=== PATIENT | female | born 1960 | race Caucasian/White ===

== ENCOUNTER 2023-03-01 10:21 | Outpatient (RCR) | payer OTHER, SELFPAY | END 2023-04-03 13:50 | disposition home or self-care (01) | LOC: PT 10:21 | PROVIDERS: PCP Student in an Organized Health Care Education/Training Program; Visit Provider Student in an Organized Health Care Education/Training Program | DX: M79.672 Pain in left foot (principal); M21.6X9 Other acquired deformities of unspecified foot | CPT/HCPCS: 97035; 97110; 97112; 97140; 97530 ==

== ENCOUNTER 2023-03-26 12:23 | Outpatient (OUT) | payer OTHER, SELFPAY ==
[2023-03-26 13:09] LABS: Thyroid Stimulating Hormone 1.279 uIU/mL (0.358-3.740)
== END 2023-03-26 12:24 | disposition home or self-care (01) ==
LOC: LAB 12:24
PROVIDERS: PCP Student in an Organized Health Care Education/Training Program; Visit Provider Internal Medicine
DX: E03.9 Hypothyroidism, unspecified (principal)
CPT/HCPCS: 36415; 84443

== ENCOUNTER 2023-05-16 08:56 | Outpatient (OUT) | payer OTHER, SELFPAY ==
--- NOTE | 2023-05-16 | XR_ITS ---
The [address] [address] Patient Name: NAVARRO SMITH MRN: [id number] date: 1960 Sex: F Assigned Patient Location: [facility] Current Patient Location: [facility] Accession/Order Number: [id number] Exam Date: 05/16/2023 09:05 Report Date: 05/16/2023 10:06 At the request of: AMY KASPER Procedure: XR foot LT min 3V PROCEDURE: XR foot LT min 3V HISTORY: LEFT FOOT PAIN ; follow-up wound COMPARISON: XR foot left 02/13/2023 FINDINGS: BONES:Mechanical fusion of the talocalcaneal and talonavicular joints. Wedge placement within the first tarsal-metatarsal joint space. Moderate degenerative changes the midfoot. No fracture or bone lesion. SOFT TISSUES:Prominent dorsal soft tissue swelling. EFFUSION:None visible. OTHER: Negative. XR/XR foot LT min 3V IMPRESSION: 1. Stable surgical changes and degenerative changes. 2. Increased dorsal soft tissue swelling. 3. Unknown site of wound. No findings to suggest osteomyelitis. Electronically authenticated by: ARIELA SCHWAB Date: 05/16/2023 10:06
== END 2023-05-16 08:57 | disposition home or self-care (01) ==
LOC: RAD 08:56
PROVIDERS: Visit Provider Podiatrist Foot & Ankle Surgery
DX: M21.42 Flat foot [pes planus] (acquired), left foot (principal)
CPT/HCPCS: 73630

== ENCOUNTER 2023-05-21 15:06 | Outpatient (RCR) | payer OTHER, SELFPAY | END 2023-06-29 17:22 | disposition home or self-care (01) | LOC: PT 15:06 | PROVIDERS: PCP Family Medicine; Visit Provider Podiatrist Foot & Ankle Surgery | DX: M76.822 Posterior tibial tendinitis, left leg (principal); M21.42 Flat foot [pes planus] (acquired), left foot | CPT/HCPCS: 97113; 97162 ==

== ENCOUNTER 2023-05-22 08:03 | Outpatient (OUT) | payer OTHER, SELFPAY ==
--- NOTE | 2023-05-22 08:43 | CT_ITS ---
The [address] [address] Patient Name: NAVARRO SMITH MRN: [id number] date: 1960 Sex: F Assigned Patient Location: CT Current Patient Location: CT Accession/Order Number: [id number] Exam Date: 05/22/2023 08:30 Report Date: 05/22/2023 10:05 At the request of: AMY KASPER Procedure: CT ankle LT wo con EXAMINATION: CT ankle LT wo con HISTORY: Posterior Tibial Tendinitis M76.822 ; postoperative swelling and pain COMPARISON: XR foot left 05/16/2023, XR ankle left 06/16/2022 TECHNIQUE: Multi-planar CT images were created without and/or with IV contrast according to examination type. Dose reduction techniques were achieved by using automated exposure control and/or adjustment of mA and/or kV according to patient size and/or use of iterative reconstruction technique. FINDINGS: BONES: Prior talocalcaneal fusion via 2 lag screws which remain intact. Fhsgc-[id number]-[id number] cuneiform fusion via single lag screw which remains intact. Prior wedge placement within the first tarsal-metatarsal joint. Marked degenerative joint disease of the midfoot. No fracture or bone lesion. Denies osteopenia. Prior bone harvesting from distal tibia. SOFT TISSUES: Subcutaneous edema versus scarring anterior to the ankle and dorsal to the proximal medial aspect of the foot. EFFUSION: None visible. OTHER: Negative. CT/CT ankle LT wo con IMPRESSION: 1. Stable surgical changes without evidence of hardware failure or change in alignment. 2. Grossly stable osteopenia and marked degenerative changes. Electronically authenticated by: ARIELA SCHWAB Date: 05/22/2023 10:05
== END 2023-05-22 08:04 | disposition home or self-care (01) ==
LOC: CT 08:04
PROVIDERS: PCP Family Medicine; Visit Provider Podiatrist Foot & Ankle Surgery
DX: M76.822 Posterior tibial tendinitis, left leg (principal)
CPT/HCPCS: 73700

== ENCOUNTER 2023-06-11 14:03 | Outpatient (OUT) | payer OTHER, SELFPAY | END 2023-06-11 14:04 | disposition home or self-care (01) | LOC: LAB 14:05 | PROVIDERS: PCP Family Medicine; Visit Provider Family Medicine | DX: E55.9 Vitamin D deficiency, unspecified (principal) | CPT/HCPCS: 36415; 82306 ==

== ENCOUNTER 2023-06-13 21:18 | Outpatient (REF) | payer OTHER, SELFPAY ==
[2023-06-20 10:09] LABS: Age Gdln ACOG Testing Note (.); HPV Aptima Negative (Negative); IGP, Aptima HPV, rfx 16/18,45 Note (.)
== END 2023-06-13 21:19 | disposition home or self-care (01) ==
LOC: LAB 21:18
PROVIDERS: PCP Family Medicine; Visit Provider Obstetrics & Gynecology
DX: Z12.4 Encounter for screening for malignant neoplasm of cervix (principal)
CPT/HCPCS: G0145

== ENCOUNTER 2023-06-27 09:06 | Outpatient (OUT) | payer OTHER, SELFPAY ==
--- NOTE | 2023-06-27 | XR_ITS ---
The [address] [address] Patient Name: NAVARRO SMITH MRN: [id number] date: 1960 Sex: F Assigned Patient Location: [facility] Current Patient Location: [facility] Accession/Order Number: [id number] Exam Date: 06/27/2023 09:15 Report Date: 06/27/2023 15:15 At the request of: AMY KASPER Procedure: XR foot BONNIE min 3V STUDY: XR foot BONNIE min 3V, [id number] HISTORY: BILATERAL FOOT PAIN COMPARISON: CT left ankle 05/22/2023 and left foot x-rays 05/16/2023. FINDINGS: Right foot: No acute fracture, dislocation, or suspicious osseous lesion. Mild osteoarthritis at the second and fourth tarsometatarsal joints. There is pes planus. Unfused calcification along the dorsal navicular. Large plantar calcaneal spur and mild Achilles insertional enthesopathy. Left foot: No acute fracture, dislocation, or suspicious osseous lesion. First tarsometatarsal joint spacer,, similar. The talocalcaneal and talonavicular fusion screws are intact and similar alignment. No evidence of loosening or infection. Pes planus. Large plantar calcaneal spur. IMPRESSION: No acute osseous abnormality. Electronically authenticated by: STERLING STARKS Date: 06/27/2023 15:15
== END 2023-06-27 09:07 | disposition home or self-care (01) ==
LOC: RAD 09:08
PROVIDERS: PCP Family Medicine; Visit Provider Podiatrist Foot & Ankle Surgery
DX: M79.672 Pain in left foot (principal); M79.671 Pain in right foot
CPT/HCPCS: 73630

== ENCOUNTER 2023-07-04 10:44 | Outpatient (OUT) | payer OTHER, SELFPAY ==
--- NOTE | 2023-07-04 | XR_ITS ---
[address] [address] Patient Name: NAVARRO SMITH MRN: [id number] date: 1960 Sex: F Assigned Patient Location: [facility] Current Patient Location: [facility] Accession/Order Number: [id number] Exam Date: 07/04/2023 09:25 Report Date: 07/04/2023 12:51 At the request of: AMY KASPER Procedure: XR foot BONNIE min 3V EXAMINATION: XR foot BONNIE min 3V HISTORY: BILATERAL FOOT PAIN COMPARISON: 06/27/2023 FINDINGS: RIGHT FINDINGS: BONES: No acute fracture or dislocation. Partial collapse of the midfoot with mild pes planus. Moderate degenerative changes with joint space narrowing and marginal osteophyte formation. Moderate plantar enthesopathic spurring of the calcaneus SOFT TISSUES: Negative. No visible soft tissue swelling. OTHER: Negative. LEFT FINDINGS: BONES: No acute fracture or dislocation. Subtalar fusion. Talonavicular fusion. Wedge spacer at the first tarsometatarsal joint. Severe degenerative changes of the midfoot and hindfoot. Moderate plantar enthesopathic spurring of the calcaneus. SOFT TISSUES: Negative. No visible soft tissue swelling. OTHER: Negative. XR/XR foot BONNIE min 3V IMPRESSION: RIGHT CONCLUSION: Stable degenerative changes and mild pes planus LEFT CONCLUSION: Stable degenerative and postsurgical changes Electronically authenticated by: SHAWNEE RAPHAEL Date: 07/04/2023 12:51
== END 2023-07-04 10:45 | disposition home or self-care (01) ==
LOC: RAD 10:44
PROVIDERS: PCP Family Medicine; Visit Provider Podiatrist Foot & Ankle Surgery
DX: L97.422 Non-pressure chronic ulcer of left heel and midfoot with fat layer exposed (principal); M79.671 Pain in right foot
CPT/HCPCS: 73630

== ENCOUNTER 2023-08-07 08:52 | Outpatient (OUT) | payer OTHER, SELFPAY ==
[2023-08-07 09:21] LABS: Hemoglobin 12.1 g/dL (12.0-16.0)
[2023-08-07 12:46] LABS: Albumin Level 3.5 g/dL (3.4-5.0)
[2023-08-07 13:22] LABS: Estimated Average Glucose 123 mg/dL; Glycohemoglobin A1C 5.9 % (4.5-6.2)
== END 2023-08-07 08:53 | disposition home or self-care (01) ==
LOC: LAB 08:52
PROVIDERS: PCP Family Medicine; Visit Provider Family Medicine
DX: Z79.899 Other long term (current) drug therapy (principal); M81.8 Other osteoporosis without current pathological fracture; M16.11 Unilateral primary osteoarthritis, right hip
CPT/HCPCS: 36415; 82042; 82306; 83036; 85018; 87081

== ENCOUNTER 2023-08-22 09:25 | Outpatient (OUT) | payer OTHER, SELFPAY ==
--- NOTE | 2023-08-22 | XR_ITS ---
The [address] [address] Patient Name: NAVARRO SMITH MRN: [id number] date: 1960 Sex: F Assigned Patient Location: [facility] Current Patient Location: Accession/Order Number: [id number] Exam Date: 08/22/2023 09:45 Report Date: 08/24/2023 08:04 At the request of: AMY KASPER Procedure: XR foot LT min 3V PROCEDURE: XR foot LT min 3V HISTORY: LEFT FOOT PAIN COMPARISON: XR foot bilateral 07/04/2023 FINDINGS: BONES:Mechanical fusion of the talocalcaneal and the medial bdfnchlvb-qseywiwod-[id number] the lag screws; no hardware fracture loosening. Wedge placement within the first tarsal-metatarsal joint. Calcaneal plantar spur. Flattening of plantar arch. SOFT TISSUES:Stable mild dorsal soft tissue swelling. EFFUSION:None visible. OTHER: Negative. XR/XR foot LT min 3V IMPRESSION: 1. Stable surgical changes without evidence of hardware failure or change in alignment. 2. Stable chronic degenerative changes. Electronically authenticated by: ARIELA SCHWAB Date: 08/24/2023 08:04
== END 2023-08-22 09:26 | disposition home or self-care (01) ==
LOC: RAD 09:25
PROVIDERS: PCP Family Medicine; Visit Provider Podiatrist Foot & Ankle Surgery
DX: M21.42 Flat foot [pes planus] (acquired), left foot (principal)
CPT/HCPCS: 73630

== ENCOUNTER 2023-09-27 12:43 | Outpatient (RCR) | payer OTHER, SELFPAY | END 2023-09-30 08:00 | disposition home or self-care (01) | LOC: PT 12:43 | PROVIDERS: PCP Family Medicine; Visit Provider Orthopaedic Surgery | DX: Z47.1 Aftercare following joint replacement surgery (principal); Z96.641 Presence of right artificial hip joint | CPT/HCPCS: 97110; 97112; 97163 ==

== ENCOUNTER 2023-10-01 08:53 | Outpatient (RCR) | payer OTHER, SELFPAY | END 2023-11-07 15:58 | disposition home or self-care (01) | LOC: PT 08:53 | PROVIDERS: PCP Family Medicine | DX: Z47.1 Aftercare following joint replacement surgery (principal); Z96.641 Presence of right artificial hip joint | CPT/HCPCS: 97110; 97112; 97113 ==

== ENCOUNTER 2023-10-31 09:37 | Outpatient (OUT) | payer OTHER, SELFPAY ==
--- NOTE | 2023-10-31 | XR_ITS ---
The [address] [address] Patient Name: NAVARRO SMITH MRN: [id number] date: 1960 Sex: F Assigned Patient Location: Current Patient Location: Accession/Order Number: [id number] Exam Date: 10/31/2023 09:39 Report Date: 10/31/2023 13:03 At the request of: AMY KASPER Procedure: XR foot LT min 3V EXAM: XR ankle LT min 3V, XR foot LT min 3V HISTORY: Left ankle pain. COMPARISON: 08/22/2023. TECHNIQUE: Routine views of the left ankle and left foot were obtained. FINDINGS: Redemonstration of the postsurgical changes in the left foot. There is evidence of arthroplasty of the first tarsometatarsal joint. Periprosthetic osteopenia measuring 3 mm is noted. The joint space at the lateral aspect remains visible. There is mechanical fusion of the talocalcaneal and the medial cuneiform navicular talus axis with 1 screw. The joint space remains visible at the posterior subtalar joint, talonavicular and the naviculocuneiform joints. There is prominent plantar calcaneal spur. There is severe osteoarthritis at the talonavicular joint with prominent dorsal spurring. Marked soft tissue swelling is seen anterior to the ankle joint as well as at the dorsal aspect of the midfoot. There is moderate osteoarthritis at the midfoot and forefoot involving the tarsometatarsal, metatarsophalangeal and the interphalangeal joints. Mild periosteal thickening is seen at the medial aspect of the second, third and fourth metatarsal bones which may be related to stress response. XR/XR foot LT min 3V IMPRESSION: Postsurgical changes as described above. No evidence of an obvious fusion at the arthrodesis site. Marked soft tissue swelling at the ankle and at the dorsal aspect of the midfoot. Polyarticular osteoarthritis. Electronically authenticated by: EMILE BERGER Date: 10/31/2023 13:03
--- NOTE | 2023-10-31 | XR_ITS ---
The [address] [address] Patient Name: NAVARRO SMITH MRN: [id number] date: 1960 Sex: F Assigned Patient Location: [facility] Current Patient Location: Accession/Order Number: [id number] Exam Date: 10/31/2023 09:48 Report Date: 10/31/2023 13:03 At the request of: AMY KASPER Procedure: XR ankle LT min 3V EXAM: XR ankle LT min 3V, XR foot LT min 3V HISTORY: Left ankle pain. COMPARISON: 08/22/2023. TECHNIQUE: Routine views of the left ankle and left foot were obtained. FINDINGS: Redemonstration of the postsurgical changes in the left foot. There is evidence of arthroplasty of the first tarsometatarsal joint. Periprosthetic osteopenia measuring 3 mm is noted. The joint space at the lateral aspect remains visible. There is mechanical fusion of the talocalcaneal and the medial cuneiform navicular talus axis with 1 screw. The joint space remains visible at the posterior subtalar joint, talonavicular and the naviculocuneiform joints. There is prominent plantar calcaneal spur. There is severe osteoarthritis at the talonavicular joint with prominent dorsal spurring. Marked soft tissue swelling is seen anterior to the ankle joint as well as at the dorsal aspect of the midfoot. There is moderate osteoarthritis at the midfoot and forefoot involving the tarsometatarsal, metatarsophalangeal and the interphalangeal joints. Mild periosteal thickening is seen at the medial aspect of the second, third and fourth metatarsal bones which may be related to stress response. XR/XR ankle LT min 3V IMPRESSION: Postsurgical changes as described above. No evidence of an obvious fusion at the arthrodesis site. Marked soft tissue swelling at the ankle and at the dorsal aspect of the midfoot. Polyarticular osteoarthritis. Electronically authenticated by: EMILE BERGER Date: 10/31/2023 13:03
--- OUTSIDE RECORDS SUMMARY | 2023-10-31 09:58 | XMS_ITS | CCD ---
Author Name Unknown Address [id number] [place] [address] Organization [facility] Care Team Providers Care Textile Artist Name Role Phone SELF, REFERRED Referring Unavailable DAVID LR Admitting Unavailable DAVID LR Attending Unavailable WAQAS PIERCE Primary Care Unavailable DAVID LR Surgeon Unavailable ME Procedure Practitioner Unavailab JUDSON Martinez Surgeon Unavailable ME Procedure Practitioner Unavailab Junior Peterson Unavailable Mallory Yuen Unavailable NON STAFF Primary Care Provider UnavailMD David Merritt II Attending Provider David Mcfarland II Unavailable MD Waqas Pierce Primary Care Provider MD Waqas Pierce Attending Provider WAQAS PIERCE Primary Care Physician Waqas Pierce Unavailable Rachel Vela Unavailable Rolando Castellanos Unavailable Grecia Carrera Unavailable Efrain CORTES Attending Unavailable Efrain CORTES Attending Unavailable DR WAQAS PIERCE Primary Care Unavailable AMY KASPER Attending Unavailable AMY KASPER Admitting Unavailable DR WAQAS PIERCE Primary Care Unavailable NILL Miguel, DR SHARMA Attending Unavailable NILL ., DR SHARMA Admitting Unavailable NILL ., DR SHARMA Consulting Unavailable DIEGO WHITLEY Consulting Unavailable MARIA EUGENIA HUTTON Consulting Unavailable KARI, DR WAQAS Mendez Primary Care Unavailable JASMIN, DR MARSHALL Attending Unavailable JASMIN, DR MARSHALL Admitting Unavailable JASMIN, DR MARSHALL Consulting Unavailable KARI, DR WAQAS Mendez Primary Care Unavailable HIGHLANDER, PETER Kishor Attending Unavailable WEST, DR SHAWNEE James Consulting Unavailable HIGHLANDER, AMY Iverson Admitting Unavailable HIGHLANDER, AMY Iverson Consulting Unavailable PIERCE, DR WAQAS Mendez Primary Care Unavailable CHUCKY ., DR MALAVE Attending Unavailable CHUCKY ., DR MALAVE Consulting Unavailable CHUCKY ., DR MALAVE Admitting Unavailable SHAWANDA ., MER IQBAL Admitting Unavailable PIERCE, DR WAQAS Mendez Primary Care Unavailable SHAWANDA ., MER IQBAL Attending Unavailable PIERCE, DR WAQAS Mendez Primary Care Unavailable HIGHLANDER, AMY Iverson Attending Unavailable HIGHLANDER, PETER D Admitting Unavailable JASMIN, DR MARSHALL Attending Unavailable JASMIN, DR MARSHALL Admitting Unavailable JASMIN, DR MARSHALL Consulting Unavailable PIERCE, DR WAQAS Mendez Primary Care Unavailable PIERCE, DR WAQAS Mendez Primary Care Unavailable YO, LEA Attending Unavailable YO, LEA Admitting Unavailable HIGHLANDER, AMY Iverson Attending Unavailable PIERCE, DR WAQAS Mendez Primary Care Unavailable ZIEBER, DR ARIELA Vaz Consulting Unavailable HIGHLANDER, AMY Iverson Admitting Unavailable HIGHLANDER, AMY Iverson Consulting Unavailable PIERCE, DR WAQAS Mendez Primary Care Unavailable HIGHLANDER, AMY Iverson Attending Unavailable HIGHLANDER, PETER D Admitting Unavailable PIERCE, DR WAQAS Mendez Primary Care Unavailable HIGHLANDER, AMY Iverson Attending Unavailable HIGHLANDER, PETER D Admitting Unavailable PIERCE, DR WAQAS Mendez Primary Care Unavailable HIGHLANDER, AMY Iverson Attending Unavailable HIGHLANDER, PETER D Admitting Unavailable PIERCE, DR WAQAS Mendez Primary Care Unavailable HIGHLANDER, AMY Iverson Consulting Unavailable HIGHLANDER, PETER D Attending Unavailable HIGHLANDER, PETER D Admitting Unavailable RYANALEX Mendez Consulting Unavailable PIERCE, DR WAQAS Mendez Primary Care Unavailable HIGHLANDER, AMY Iverson Attending Unavailable HIGHLANDER, AMY Iverson Admitting Unavailable PIERCE, DR WAQAS Mendez Primary Care Unavailable CHUCKY ., DR MALAVE Admitting Unavailable CHUCKY ., DR MALAVE Attending Unavailable WEST, DR SHAWNEE James Consulting Unavailable CHUCKY ., DR MALAVE Consulting Unavailable ZIEBER, DR ARIELA Vaz Consulting Unavailable PIERCE, DR WAQAS Mendez Primary Care Unavailable HIGHLANDER, PETER D Attending Unavailable WEST, DR SHAWNEE James Consulting Unavailable HIGHLANDER, PETER D Admitting Unavailable HIGHLANDER, AMY D Consulting Unavailable HIGHLANDER, PETER D Attending Unavailable PIERCE, DR WAQAS Mendez Primary Care Unavailable HIGHLANDER, AMY Iverson Admitting Unavailable PIERCE, DR WAQAS Mendez Primary Care Unavailable HIGHLANDER, PETER D Attending Unavailable HIGHLANDER, PETER D Admitting Unavailable PIERCE, DR WAQAS Mendez Primary Care Unavailable HIGHLANDER, AMY Iverson Attending Unavailable HIGHLANDER, AMY Iverson Admitting Unavailable PIERCE, DR WAQAS Mendez Primary Care Unavailable HIGHLANDER, AMY Iverson Attending Unavailable HIGHLANDER, AMY D Admitting Unavailable PIERCE, DR WAQAS Mendez Primary Care Unavailable HIGHLANDER, AMY Iverson Attending Unavailable HIGHLANDER, AMY Iverson Admitting Unavailable PIERCE, DR WAQAS Mendez Primary Care Unavailable HIGHLANDER, AMY Iverson Attending Unavailable HIGHLANDER, AMY Iverson Admitting Unavailable PIERCE, DR WAQAS Mendez Primary Care Unavailable HIGHLANDER, AMY Iverson Attending Unavailable HIGHLANDER, AMY D Admitting Unavailable HIGHLANDER, PETER D Admitting Unavailable HIGHLANDER, AMY Iverson Attending Unavailable PIERCE, DR WAQAS Mendez Primary Care Unavailable WEST, DR SHAWNEE James Consulting Unavailable HIGHLANDER, AMY Iverson Consulting Unavailable PIERCE, DR WAQAS Mendez Primary Care Unavailable HIGHLANDER, AMY Iverson Admitting Unavailable HIGHLANDER, AMY Iverson Attending Unavailable HIGHLANDER, AMY D Attending Unavailable PIERCE, DR WAQAS Mendez Primary Care Unavailable HIGHLANDER, AMY Iverson Admitting Unavailable HIGHLANDER, AMY Iverson Admitting Unavailable HIGHLANDER, AMY Iverson Attending Unavailable PIERCE, DR WAQAS Mendez Primary Care Unavailable PIERCE, DR WAQAS Mendez Primary Care Unavailable HIGHLANDER, AMY Iverson Attending Unavailable HIGHLANDER, AMY Iverson Admitting Unavailable HIGHLANDER, AYM Iverson Attending Unavailable PIERCE, DR WAQAS Mendez Primary Care Unavailable HIGHLANDER, AMY Iverson Admitting Unavailable PIERCE, DR WAQAS Mendez Primary Care Unavailable HIGHLANDER, AMY Iverson Attending Unavailable WEST, DR SHAWNEE James Consulting Unavailable HIGHLANDER, AMY Iverson Admitting Unavailable HIGHLANDER, AMY Iverson Consulting Unavailable PIERCE, DR WAQAS Mendez Primary Care Unavailable HIGHLANDER, AMY Iverson Attending Unavailable HIGHLANDER, AMY Iverson Admitting Unavailable PIERCE, DR WAQAS Mendez Primary Care Unavailable HIGHLANDER, AMY Iverson Attending Unavailable HIGHLANDER, AMY Iverson Admitting Unavailable PIERCE, DR WAQAS Mendez Primary Care Unavailable HIGHLANDER, AMY Iverson Attending Unavailable HIGHLANDER, AMY Iverson Admitting Unavailable JEFFERY .ELICEO Admitting Unavailable PIERCE, DR WAQAS Mendez Primary Care Unavailable JEFFERY ., ELICEO Attending Unavailable YESSI .LEANN Consulting Unavailable AMY FOWLER Consulting Unavailable CATRINA, H Attending Unavailable FAWSAMEER, ROWLAND H Admitting Unavailable PIERCE, DR WAQAS Mendez Primary Care [facility] DR ARIELA Vaz Consulting Unavailable LAMIN MOHAN Unavailable HIGHLANDER, AMY Iverson Consulting Unavailable AGMELINDA DOVER Consulting Unavailable HIGHLANDER, AMY Iverson Procedure Practitioner Unava ilable JEFFERY ., ELICEO Consulting Unavailable FAWWAD, SHAIKH Carlos Consulting Unavailable TUNDE NORMAN Consulting Unavailable DEVINANJEL DAVID Consulting Unavailable AA, AA Consulting Unavailable PIERCE, DR WAQAS Mendez Primary Care Unavailable CHUCKY ., DR MALAVE Attending Unavailable CHUCKY ., DR MALAVE Consulting Unavailable CHUCKY ., DR MALAVE Admitting Unavailable ZIEBER, DR ARIELA Vaz Consulting Unavailable PIERCE, DR WAQAS Mendez Primary Care Unavailable [facility], AMY Iverson Attending Unavailable HIGHLANDER, AMY Iverson Admitting Unavailable WEST, DR SHAWNEE James Consulting Unavailable HIGHLANDER, AMY Iverson Consulting Unavailable PIERCE, DR WAQAS Mendez Primary Care Unavailable HIGHLANDER, AMY Iverson Attending Unavailable HIGHLANDER, AMY Iverson Admitting Unavailable PIERCE, DR WAQAS Mendez Primary Care Unavailable PIERCE, DR WAQAS Mendez Admitting Unavailable PIERCE, DR WAQAS Mendez Attending Unavailable WEST, DR SHAWNEE James Consulting Unavailable PIERCE, DR WAQAS Mendez Consulting Unavailable PIERCE, DR WAQAS Mendez Primary Care Unavailable HIGHLANDER, AMY Iverson Attending Unavailable HIGHLANDER, AMY Iverson Admitting Unavailable PIERCE, DR WAQAS Mendez Primary Care Unavailable MISC, DR PEÑA Consulting Unavailable MISC, DR PEÑA Admitting Unavailable MISC, DR PEÑA Attending Unavailable HIGHLANDER, AMY Iverson Attending Unavailable PIERCE, DR WAQAS Mendez Primary Care Unavailable HIGHLANDER, AMY Iverson Admitting Unavailable KIMBERLY AMADOR Attending Unavailable KIMBERLY AMADOR Attending Unavailable MD David Mcfarland II Attending Provider MD Waqas Pierce Primary Care Provider [phone] NON STAFF Primary Care Provider Unavailsabino PereaCarrie Unavailable MD David Mcfarland II Attending Provider MD Waqas Pierce Primary Care Provider [phone] David Mcfarland II Admitting Unavailabl e NON STAFF Primary Care Unavailable David Mcfarland II Attending UnavailDavid Merritt II Attending Unavailabl e NON STAFF Primary Care Unavailable David Mcfarland II Admitting Unavailabl e NON STAFF Primary Care Unavailable Marcin Grace Admitting Unavailab Marcin Ramos Attending Unavailab David Harrell II Admitting Unavailabl e Waqas Pierce Primary Care Unavailable David Mcfarland II Attending Unavailabl David Richards II Admitting Unavailabl e NON STAFF Primary Care Unavailable David Mcfarland II Attending Unavailabl e Bartolo BAUGH, David Gordillo Attending Unavailabl e NON STAFF Primary Care Unavailable David Mcfarland II Admitting Unavailsabino e Waqas Pierce Admitting Unavailable Waqas Pierce Attending Unavailable Allergies Allergy Classification Reported Allergen(s) Allergy Type Date of Onset Reaction(s) Facility metFORMIN (1 source) metFORMIN; Translations: [METFORMIN] Drug Allergy 12-17-19 [facility] Repository Penicillins (antibiotic) (1 source) Penicillin Drug Allergy 03-11-20 18 [facility] Rep[facility] Serotonin (1 source) Serotonin; Translations: [SEROTONIN] Drug Allergy 12-17-19 [facility] Rep[facility] (20 sources) Penicillin G Drug Allergy rash [facility] Other (20 sources) CYMBOLTA Propensity to adverse reactions temporary blindness and couldnt feel herself breathing [facility] Other (20 sources) DULoxetine; Translations: [duloxetine] Drug Allergy 09-05-20 22 Impairment level of vision (disorder) [facility] (20 sources) metFORMIN; Translations: [metformin] Drug Allergy 09-05-20 22 Abdominal mass (finding) [facility] (20 sources) Penicillin; Translations: [penicillin] Drug Allergy 08-08-20 13 Eruption of skin (disorder) [facility] (1 source) DULoxetine Drug Allergy [facility] Repository (1 source) metFORMIN Drug Allergy [facility] Repository (5 sources) Penicillins; Translations: [PENICILLINS] Drug allergy (disorder) 10-01-19 00 Rash [facility] Repository (20 sources) Rx Essentials Antidepressant *HEMATOPOIETIC AGENTS Propensity to adverse reactions Comment:LEENATO SYED [facility] Other (3 sources) Allergies Reconciled Propensity to adverse reactions 08-17-20 Unknown [facility] Other (20 sources) Substance with penicillin structure and antibacterial mechanism of action (substance) Drug allergy Unknown [facility] Other (20 sources) Substance with serotonin re-uptake inhibitor mechanism of action (substance) Drug allergy 09-04-20 12 SEROTONIN HCL [facility] Other (3 sources) patient allergy list reviewed by nurse or physicia Propensity to adverse reactions 12-09-19 14 Comment:Done [employer] Other (3 sources) Serotonin Drug Allergy 08-28-20 temporary blindness, couldn't feel self breath [facility] (1 source) DULoxetine Drug Allergy 08-28-20 [facility] Repository (1 source) metFORMIN Drug Allergy 08-28-20 [facility] Rep[facility] (1 source) Penicillins Drug allergy (disorder) 08-28-20 [facility] Repository Medications Current Medications Medication Drug Class(es) Dates Sig (Normalized) Sig (Original) 0.5 ML semaglutide 0.5 MG/ML Auto-Injector [Wegovy] (1 source) Start: 01-17-2023 inject 0.5 mL by subcutaneous injection every week Wegovy 0.25 MG/0.5ML 0.5 ml Subcutaneous Weekly for 30 days Dec, Active 0.5 ML tirzepatide 5 MG/ML Auto-Injector [Mounjaro] (20 sources) Start: 03-09-2023 Mounjaro 2.5 MG/0.5ML as directed Subcutaneous weekly Mar, Active Start: 03-09-2023 Mounjaro 2.5 M G/0.5ML as directed Subcutaneous weekly for 28 days Mar, Active acetaminophen 500 mg oral tablet (15 sources) Start: 08-30-2023 take 2 tablets by mouth every eight hours for pain Acetaminophen 500 MG 2 tablets for pain Orally every 8 hrs for 30 days MED TO BED UPON DISCHARGE DOS: 09/03/23 Aug, Active Tylenol Active [id number] 200 actuat albuterol 0.09 mg/actuat metered dose inhaler (2 sources) beta2-Adrenergic Agonist Start: 10-19-2019 take 2 puff(s) by inhalation every four hours as needed Albuterol Sulfate HFA 108 (90 Base) MCG/ACT 2 puffs as needed Inhalation every 4 hrs Oct, Active alendronic acid 70 mg oral tablet (1 source) Bisphosphonate take 1 tablet by mouth once daily Fosamax 70 MG 1 tablet 30 minutes before the first food, beverage or medicine of the day with plain water Orally Active Ashwagandha (20 sources) Ashwagandha 300 MG/ 2 tabs QD Active aspirin 81 mg delayed release oral tablet (12 sources) Platelet Aggregation Inhibitor, Nonsteroidal Anti-inflammatory Drug Start: 08-30-2023 take 1 tablet by mouth every twelve hours Aspirin 81 81 MG 1 tablet Orally Twice a day for 35 days MED TO BED UPON DISCHARGE DOS: 09/03/23 Aug, Active Start: 08-30-2023 take 1 tablet by krysten th twice daily Aspirin 81 81 MG 1 tablet Orally Twice a day for 35 days MED TO BED UPON DISCHARGE DOS: 09/03/23 Aug, Active atorvastatin 20 mg oral tablet (20 sources) HMG-CoA Reductase Inhibitor Start: 08-16-2020 take 20 mg by mouth once daily at bedtime Atorvastatin Active 20 MG PO Daily at bedtime August 28, 2023 12:00am Atorvastatin Mickey cium Active azithromycin 250 mg oral tablet (3 sources) Macrolide Antimicrobial Start: 08-01-2023 Azithromycin 250 MG as directed Orally 2 tabs po today, then 1 tab daily x 4 more days for 5 Aug, Active Baclofen (1 source) gamma-Aminobutyric Acid-ergic Agonist Baclofen 10 MG/5ML as directed Intrathecal Active benzonatate 200 mg oral capsule (3 sources) Non-narcotic Antitussive Start: 08-01-2023 take 1 capsule by mouth every eight hours Benzonatate 200 MG 1 capsule Orally Three times a day for 10 day(s) Aug, Active Calcium + Vitamin D3 (20 sources) Calcium + Vitami n D3 Active celecoxib 200 mg oral capsule (12 sources) Nonsteroidal Anti-inflammatory Drug Start: 08-30-2023 take 1 capsule by mouth every twelve hours Celecoxib 200 MG 1 capsule with food Orally Twice a day for 30 days MED TO BED UPON DISCHARGE DOS: 09/03/23 Aug, Active cholecalciferol 0.05 mg oral tablet (20 sources) Vitamin D Start: 08-28-2023 take 1 tablet by mouth once daily Cholecalciferol (Vitamin D3) (Vitamin D3) 50 mcg (2,000 unit) Tablet Active 50 MCG PO Daily August 28, 2023 12:00am take 1 tablet by mouth once radha y Cholecalciferol 50 MCG (1999 UT) 1 tablet Orally Once a day for 30 days Active Claritin-D 24 Hour 10-240 MG (20 sources) take 10-240 mg by mouth once as needed Claritin-D 24 Hour 10-240 MG 1 tablet as needed Orally prn Active clindamycin 150 mg oral capsule (3 sources) Lincosamide Antibacterial take 3 capsules by mouth every eight hours Clindamycin HCl 150 MG 3 capsules Orally every 8 hrs Active Diclofenac 75mg Tab-DR (1 source) Start: 08-16-20 take 1 tablet by mouth twice daily Diclofenac 75mg Tab-DR 75 mg, Oral, BID, Refills(s) 0 Start Date: 08/16/20 Status: Ordered docusate sodium 50 mg / sennosides, nursing home 8.6 mg oral tablet (12 sources) Start: 08-30-20 take 2 tablets by mouth every twenty-four hours Senokot S 8.6-50 MG 2 tablets Orally Once a day for 30 days MED TO BED UPON DISCHARGE DOS: 09/03/23 PRN Aug, Active Fish Oils (20 sources) Fish Oil 454mg gummy 3 a day Active Fish Oil Active Flax Seed Oil (20 sources) Flax Seed Oil 14 00mg capsule qd Active fluticasone propionate 0.05 mg/actuat metered dose nasal spray (20 sources) Corticosteroid take 1 spray(s) nasal route once daily as needed Fluticasone Propionate 50 MCG/ACT 1 spray in each nostril Nasally Once a day PRN Active take 1 spray(s) nasal route once daily Fluticasone Propionate 50 MCG/ACT 1 spray in each nostril Nasally Once a day Active High Potency Probiotic (1 source) Start: 08-18-2020 take 1 tablet by mouth once daily High Potency Probiotic 1 tab(s), Oral, Daily, Refill(s) 0 Start Date: 08/18/20 Status: Ordered levothyroxine sodium 0.05 mg oral tablet (20 sources) l-Thyroxi ne Start: 08-28-2023 take 50 ug by mouth once daily in the morning Levothyroxine Active 50 MCG PO Every morning August 28, 2023 12:00am Start: 01-17-2023 take 1 tablet by krysten th once daily in the morning Levothyroxine Sodium 50 MCG 1 tablet in the morning on an empty stomach Orally Once a day for 30 day(s) Dec, Active Start: 12-15-2022 take 1 tablet by krysten th once daily in the morning Levothyroxine Sodium 25 MCG 1 tablet in the morning on an empty stomach Orally Once a day for 30 days Nov, Active 24 hr loratadine 10 mg / pseudoephedrine sulfate 240 mg extended release oral tablet (20 sources) alpha-Adrenergic Agonist take 10-240 mg by mouth once as needed Claritin-D 24 Hour 10-240 MG 1 tablet as needed Orally prn Active Magnesium (20 sources) take 1 tablet by mouth once daily Magnesium 250 MG 1 tablet with a meal Orally Once a day Active 24 hr metoprolol succinate 25 mg extended release oral tablet (20 sources) beta-Adrenergic Miranda Start: 023 take 25 mg by mouth once daily in the morning Metoprolol Succinate Active 25 MG PO Every morning August 28, 2023 12:00am mounjaro 2.5 mg/0.5ml solution pen-injector (11 sources) Start: 023 Mounjaro 2.5 MG/0.5ML as directed Subcutaneous weekly Mar, Active Mounjaro 2.5 MG/ 0.5ML as directed Subcutaneous weekly Active Multivitamin preparation (20 sources) take 1 tablet by mouth once daily Multivitamin - 1 tablet Orally Once a day Active Osteo Bi-Flex Triple Strength - (20 sources) Osteo Bi-Flex Tr iple Strength - as directed Orally Active pantoprazole 20 mg delayed release oral tablet (20 sources) Proton Pump Inhibitor Start: take 1 tablet by mouth every twenty-four hours Protonix 20 MG 1 tablet Orally Once a day for 35 days MED TO BED UPON DISCHARGE DOS: 09/03/23 Aug, Active Start: 08-16-2020 take 40 mg by mouth once daily in the morning Pantoprazole Active 40 MG PO Every morning August 28, 2023 12:00am take 1 tablet by krysten th every twenty-four hours Pantoprazole Sodium 20 MG 1 tablet Orally Once a day Active polyethylene glycol 3350 17382 mg powder for oral solution (12 sources) Osmotic Laxative Start: 08-30-2023 MiraLax 17 GM 1 packet mixed with 8 ounces of fluid Orally Once a day for 7 days MED TO BED UPON DISCHARGE DOS: 09/03/23 Aug, Active predniSONE 20 mg oral tablet (4 sources) take 1 tablet by mouth every twenty-four hours predniSONE 20 MG 1 tablet Orally Once a day for 5 days Active pregabalin 75 mg oral capsule (20 sources) Start: 01-17-2021 take 1 capsule by mouth twice daily pregabalin 75 mg Cap 75 mg = 1 cap(s), Oral, BID, Refills(s) 0 Start Date: 11/08/22 Status: Ordered Qunol Ultra CoQ10 100-150 MG-UNIT (20 sources) Qunol Ultra CoQ1 0 100-150 MG-UNIT as directed Orally Active Tirzepatide (3 sources) Start: 08-28-2023 Tirzepatide (Mounjaro) 2.5 mg/0.5 mL Pen Injector Active 2.5 MG SUBCUT every week August 28, 2023 12:00am Triamcinolone Acet-Ciclopirox 0.1 & 8 % (20 sources) Triamcinolone Acet-Ciclopirox 0.1 & 8 % as directed Externally Active Vitamin D 50 MCG (1999 UT) (3 sources) take 1 capsule by mouth once daily Vitamin D 50 MCG (1999 UT) 1 capsule Orally Once a day Active Completed/Discontinued Medications Medication Drug Class(es) Dates Sig (Normalized) Sig (Original) acetaminophen 325 mg / HYDROcodone bitartrate 5 mg oral tablet (20 sources) Opioid Agonist HYDROcodone-Acet a minophen 5-325 MG TAKE 1 TO 2 TABLETS BY MOUTH EVERY 6 TO 8 HOURS NEEDED max 5 (FIVE) TABLET per 24 HOURS Oral for 6 Days PRN Not-Taking bifidobacterium infantis 4 mg oral capsule (20 sources) Align - as directed Orally Not-Taking cefadroxil 500 mg oral capsule (13 sources) Cephalosporin Antibacterial Start: 08-30-2023 take 1 capsule by mouth every twelve hours Cefadroxil 500 MG 1 tablet Orally every 12 hrs for 7 days MED TO BED UPON DISCHARGE DOS: 09/03/23 30 Aug, 2023 Not-Taking/PRN diclofenac sodium 75 mg delayed release oral tablet (20 sources) Nonsteroidal Anti-inflammatory Drug Start: 08-28-2023 End: 09-03-2023 take 75 mg by mouth twice daily Diclofenac Sodium Discontinued 75 MG PO Twice daily August 28, 2023 12:00am September 03, 2023 6:50am Diclofenac Activ e doxycycline monohydrate 100 mg oral capsule (4 sources) Tetracycline-class Drug Start: 10-19-2019 take 1 capsule by mouth every twelve hours Doxycycline Monohydrate 100 MG 1 capsule Orally every 12 hrs for 7 days Oct, Not-Taking methylPREDNISolone 4 mg oral tablet (4 sources) Corticosteroid Start: 10-19-2019 Medrol (Wei) 4 MG half of daily dose in the morning with food and the rest at night with food Orally Oct, Not-Taking morphine sulfate 15 mg extended release oral tablet (13 sources) Opioid Agonist Start: 08-30-2023 take 1 tablet by mouth every twelve hours as needed for pain Morphine Sulfate ER 15 MG 1 tablet for breakthrough pain only Orally every 12 hrs for 5 days MED TO BED UPON DISCHARGE DOS: 09/03/23 Aug, Not-Taking/PRN ondansetron 8 mg oral tablet (13 sources) Serotonin-3 Receptor Antagonist Start: 08-30-2023 take 1 tablet by mouth three times daily as needed for nausea Ondansetron HCl 8 MG 1 tablet as needed for nausea Orally Three times a day for 10 days MED TO BED UPON DISCHARGE DOS: 09/03/23 Aug, Not-Taking/PRN oxyCODONE hydrochloride 5 mg oral tablet (13 sources) Opioid Agonist Start: 08-30-2023 take 1 tablet by mouth every four hours as needed for pain oxyCODONE HCl 5 MG 1 tablet as needed for pain Orally every 4 hrs for 10 days MED TO BED UPON DISCHARGE DOS: 09/03/23 Aug, Not-Taking/PRN traMADol hydrochloride 50 mg oral tablet (20 sources) Opioid Agonist Start: 08-30-2023 take 1 tablet by mouth every six hours as needed for pain traMADol HCl 50 MG 1 tablet as needed for pain Orally every 6 hrs for 10 days MED TO BED UPON DISCHARGE DOS: 09/03/23 Aug, Not-Taking/PRN traMADol HCl 50 MG 1 tablet as needed Orally prn Active Tylenol Arthritis Pain (20 sources) Tylenol Arthriti s Pain 650mg caplets two in am and two at bedtime Not-Taking/PRN Tylenol Arthriti s Pain 650mg caplets two in am and two at bedtime Active ubiquinol 100 mg oral capsule (20 sources) Qunol Ultra CoQ1 0 100-150 MG-UNIT as directed Orally Not-Taking/PRN Vitamin D3 1000 intl units oral tablet (1 source) Start: 08-18-2020 take 1 tablet by mouth once daily Vitamin D3 1000 intl units oral tablet 1,000 International_Unit = 1 tab(s), Oral, Daily Start Date: 08/18/20 Status: Ordered Problems Active Problems Problem Classification Problem Date Documented Da te Episodic/Chronic Abdominal pain (10 sources) Pelvic and perineal pain; Translations: [Right upper quadrant pain] Onset: 7 Episodic Acquired foot deformities (17 sources) Other acquired deformities of unspecified foot; Translations: [Flat foot [pes planus] (acquired), left foot] Onset: 3 Episodic Bacterial infection; unspecified site (1 source) Other specified bacterial agents as the cause of diseases classified elsewhere; Translations: [OTH SPEC BACTERIAL DZ CLASS ELSW] Onset: 3 Episodic Cardiac dysrhythmias (20 sources) Cardiac arrhythmia; Translations: [Cardiac arrhythmia, unspecified] Onset: 3 Chronic Cardiac dysrhythmias (12 sources) Palpitations; Translations: [Tachycardia, unspecified] Onset: 2 Episodic Chronic ulcer of skin (11 sources) Non-pressure chronic ulcer of left heel and midfoot with fat layer exposed; Translations: [Non-pressure chronic ulcer of left heel and midfoot with necrosis of bone] Onset: 2 Chronic Coma; stupor; and brain damage (20 sources) Excessive daytime sleepiness - normal night sleep; Translations: [Somnolence] Onset: 3 Episodic Complications of surgical procedures or medical care (4 sources) Disruption of internal operation (surgical) wound, not elsewhere classified, initial encounter; Translations: [Dehiscence of surgical wound] Onset: 2 Episodic Diabetes mellitus without complication (16 sources) Other abnormal glucose; Translations: [Impaired fasting glucose] Onset: 5 Episodic Disorders of lipid metabolism (20 sources) Hyperlipidemia; Translations: [Hyperlipidemia, unspecified] Onset: 9 08-16-2020 Chronic Esophageal disorders (20 sources) Gastroesophageal reflux disease; Translations: [Gastroesophageal reflux disease with hiatal hernia] Onset: 8 08-18-2020 Chronic Essential hypertension (20 sources) Hypertensive disorder; Translations: [Essential (primary) hypertension] Onset: 3 Chronic Gastritis and duodenitis (2 sources) Chronic antral gastritis; Translations: [Unspecified chronic gastritis without bleeding] Onset: 3 09-14-2020 Chronic Gastritis and duodenitis (1 source) Gastritis 09-14-2020 Episodic Genitourinary symptoms and ill-defined conditions (20 sources) Mixed urinary incontinence; Translations: [Mixed incontinence] Onset: 3 Chronic Headache; including migraine (20 sources) Migraine; Translations: [Migraine, unspecified, not intractable, without status migrainosus] Chronic Infective arthritis and osteomyelitis (except that caused by tuberculosis or sexually transmitted disease) (1 source) Osteomyelitis, unspecified; Translations: [OSTEOMYELITIS UNSPECIFIED] Onset: 2 Chronic Menstrual disorders (3 sources) Excessive and frequent menstruation; Translations: [Excessive and frequent menstruation with regular cycle] Onset: 2 Chronic Mood disorders (20 sources) Major depressive disorder, single episode, unspecified; Translations: [Depression] Onset: 8 Chronic Nausea and vomiting (1 source) Regurgitation of food 08-18-2020 Episodic Nutritional deficiencies (20 sources) Vitamin D deficiency; Translations: [Vitamin D deficiency, unspecified] Chronic Osteoarthritis (20 sources) Inflammation of joint of foot; Translations: [Primary osteoarthritis, unspecified ankle and foot] Onset: 4 Chronic Osteoporosis (20 sources) Osteoporosis; Translations: [Other osteoporosis without current pathological fracture] Chronic Other acquired deformities (3 sources) Joint contracture of the ankle and/or foot; Translations: [Contracture, 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 Other aftercare (8 sources) Patient encounter status; Translations: [Aftercare following joint replacement surgery] Chronic Other aftercare (2 sources) Aftercare following joint replacement surgery Chronic Other aftercare (2 sources) Other fpc (current) drug therapy; Translations: [OTH ALF CURRENT DRUG THERAPY] Onset: 3 Episodic Other circulatory disease (3 sources) Elevated blood-pressure reading without diagnosis of hypertension; Translations: [Elevated blood-pressure reading, without diagnosis of hypertension] Episodic Other connective tissue disease (8 sources) Hip joint prosthesis present; Translations: [Presence of right artificial hip joint] Chronic Other connective tissue disease (3 sources) Presence of right artificial hip joint; Translations: [Presence of right artificial hip joint] Onset: 4 Chronic Other connective tissue disease (2 sources) Plantar fascial fibromatosis; Translations: [PLANTAR FASCIAL FIBROMATOSIS] Onset: 3 Episodic Other connective tissue disease (1 source) Posterior tibial tendinitis, right leg; Translations: [POSTERIOR TIBIAL TENDINITIS RT LEG] Onset: 3 Episodic Other connective tissue disease (1 source) Pain in right foot; Translations: [PAIN IN RIGHT FOOT] Onset: 3 Episodic Other connective tissue disease (2 sources) Fibromyalgia; Translations: [FIBROMYALGIA] Onset: 3 Episodic Other connective tissue disease (5 sources) Pain in left foot; Translations: [PAIN IN LEFT FOOT] Onset: 3 Episodic Other connective tissue disease (1 source) Abscess of bursa, left ankle and foot; Translations: [ABSCESS BURSA LEFT ANKLE AND FOOT] Onset: 3 Episodic Other connective tissue disease (3 sources) Pain in left foot; Translations: [Pain in left foot] Episodic Other connective tissue disease (3 sources) Plantar fascial fibromatosis; Translations: [Plantar fascial fibromatosis] Episodic Other connective tissue disease (20 sources) Fibromyalgia; Translations: [Fibromyalgia] Episodic Other connective tissue disease (3 sources) Disorder of musculoskeletal system; Translations: [Other symptoms and signs involving the musculoskeletal system] Episodic Other female genital disorders (3 sources) Noninflammatory disorder of the vagina; Translations: [Other specified noninflammatory disorders of vagina] Episodic Other gastrointestinal disorders (3 sources) Irritable bowel syndrome characterized by constipation; Translations: [Irritable bowel syndrome with constipation] Onset: 7 Chronic Other gastrointestinal disorders (20 sources) Constipation; Translations: [Constipation, unspecified] Episodic Other gastrointestinal disorders (1 source) History of rectal bleeding 03-04-2021 Episodic Other inflammatory condition of skin (3 sources) Rosacea; Translations: [Rosacea, unspecified] Onset: 9 Chronic Other liver diseases (20 sources) Steatosis of liver; Translations: [Fatty (change of) liver, not elsewhere classified] Onset: 7 Chronic Other liver diseases (9 sources) Fatty (change of) liver, not elsewhere classified; Translations: [FATTY CHANGE LIVER NEC] Onset: 3 Chronic Other lower respiratory disease (1 source) Nodule of lung 08-16-2020 Episodic Other lower respiratory disease (12 sources) Cough; Translations: [Cough, unspecified] Episodic Other lower respiratory disease (3 sources) Solitary nodule of lung; Translations: [Solitary pulmonary nodule] Episodic Other nervous system disorders (20 sources) Chronic pain; Translations: [Other chronic pain] Chronic Other nervous system disorders (4 sources) Other chronic pain; Translations: [Other chronic pain G89.29] Onset: 1 Resolved: 1 Chronic Other non-traumatic joint disorders (1 source) Other specific joint derangements of left ankle, not elsewhere classified; Translations: [OTH SPEC JOINT DERANG LT ANKLE NEC] Onset: 3 Chronic Other non-traumatic joint disorders (1 source) Pain in right ankle and joints of right foot; Translations: [PAIN IN RIGHT ANKLE] Onset: 3 Episodic Other non-traumatic joint disorders (4 sources) Other specified joint disorders, left ankle and foot; Translations: [OTHER SPEC JOINT D/O LT ANKLE FOOT] Onset: 3 Episodic Other non-traumatic joint disorders (3 sources) Pain in right hip joint; Translations: [Pain in right hip] Episodic Other nutritional; endocrine; and metabolic disorders (20 sources) Obese class II; Translations: [Body mass index (BMI) 36.0-36.9, adult] Onset: 7 Chronic Other nutritional; endocrine; and metabolic disorders (20 sources) Body mass index 40+ - severely obese; Translations: [Body mass index (BMI) 45.0-49.9, adult] Onset: 8 Chronic Other nutritional; endocrine; and metabolic disorders (20 sources) Obesity; Translations: [Obesity, unspecified] Onset: 5 Chronic Other nutritional; endocrine; and metabolic disorders (20 sources) Metabolic syndrome X; Translations: [Metabolic syndrome] Chronic Other nutritional; endocrine; and metabolic disorders (12 sources) Obesity, unspecified; Translations: [OBESITY UNSPECIFIED] Onset: 3 Chronic Other nutritional; endocrine; and metabolic disorders (7 sources) Body mass index (BMI) 45.0-49.9, adult; Translations: [BODY MASS INDEX BMI 45.0-49.9 ADULT] Onset: 3 Chronic Other nutritional; endocrine; and metabolic disorders (5 sources) Metabolic syndrome; Translations: [Metabolic syndrome X] Chronic Other nutritional; endocrine; and metabolic disorders (11 sources) Body mass index (BMI) 40.0-44.9, adult; Translations: [BMI 40.0-44.9, adult] Chronic Other nutritional; endocrine; and metabolic disorders (20 sources) Morbid obesity; Translations: [Morbid (severe) obesity due to excess calories] Chronic Other nutritional; endocrine; and metabolic disorders (2 sources) Morbid (severe) obesity due to excess calories; Translations: [Morbid (severe) obesity due to excess calories] Onset: 2 Chronic Other screening for suspected conditions (not mental disorders or infectious disease) (17 sources) Screening for malignant neoplasm of colon done; Translations: [Encounter for screening for malignant neoplasm of colon] Onset: 2 Episodic Other skin disorders (1 source) Corns and callosities; Translations: [CORNS AND CALLOSITIES] Onset: 3 Episodic Other skin disorders (5 sources) Ingrowing nail; Translations: [INGROWING NAIL] Onset: 3 Episodic Other skin disorders (1 source) Other nail disorders; Translations: [OTHER NAIL DISORDERS] Onset: 3 Episodic Other upper respiratory disease (4 sources) Allergic rhinitis; Translations: [Allergic rhinitis, cause unspecified] Onset: 3 08-16-2020 Chronic Other upper respiratory disease (3 sources) Seasonal allergic rhinitis; Translations: [Other seasonal allergic rhinitis] Onset: 8 Chronic Other upper respiratory infections (3 sources) Chronic sinusitis; Translations: [Chronic sinusitis, unspecified] Chronic Other upper respiratory infections (5 sources) Acute maxillary sinusitis; Translations: [Acute maxillary sinusitis, unspecified] Episodic Phlebitis; thrombophlebitis and thromboembolism (11 sources) Phlebitis and thrombophlebitis of superficial vessels of right lower extremity; Translations: [Thrombophlebitis of superficial veins of lower extremity] Onset: 3 Episodic Pneumonia (except that caused by tuberculosis or sexually transmitted disease) (3 sources) Pneumonia; Translations: [Pneumonia, unspecified organism] Episodic Residual codes; unclassified (20 sources) Obstructive sleep apnea syndrome; Translations: [Obstructive sleep apnea (adult) (pediatric)] Onset: 8 Chronic Residual codes; unclassified (9 sources) Obstructive sleep apnea (adult) (pediatric); Translations: [OBSTRUCTIVE SLEEP APNEA] Onset: 2 Chronic Residual codes; unclassified (1 source) Presence of functional implant, unspecified; Translations: [PRESENCE FUNCTIONAL IMPLANT UNS] Onset: 2 Chronic Residual codes; unclassified (3 sources) Sleep apnea; Translations: [Sleep apnea, unspecified] Chronic Residual codes; unclassified (4 sources) Postmenopausal state; Translations: [Asymptomatic menopausal state] 08-16-2020 Episodic Residual codes; unclassified (3 sources) Family history of diabetes mellitus; Translations: [Family history of diabetes mellitus] Episodic Residual codes; unclassified (3 sources) Tobacco user; Translations: [Tobacco use] Episodic Spondylosis; intervertebral disc disorders; other back problems (20 sources) Arthritis of lumbosacral spine; Translations: [Spondylosis without myelopathy or radiculopathy, lumbosacral region] Onset: 1 Resolved: 1 Chronic Spondylosis; intervertebral disc disorders; other back problems (20 sources) Low back pain; Translations: [Dorsalgia, unspecified] Onset: 5 Resolved: 1 Episodic Thyroid disorders (20 sources) Hyperthyroidism; Translations: [Hypothyroidism] Onset: 3 08-16-2020 Chronic Unclassified (1 source) Patient encounter status 11-08-2022 Unclassified (1 source) LOW BACK PAIN, UNSPECIFIED; Translations: [LOW BACK PAIN, UNSPECIFIED] Onset: 2 Unclassified (1 source) ELEV LVLS LIVER TRANSAMINASE LVLS; Translations: [ELEV LVLS LIVER TRANSAMINASE LVLS] Onset: 2 Unclassified (1 source) CONTACT W/AND (SUSP) EXPOS COVID-19; Translations: [CONTACT W/AND (SUSP) EXPOS COVID-19] Onset: 2 Unclassified (1 source) Aftercare following joint replacement surgery; Translations: [Aftercare following joint replacement surgery] Onset: 4 Unclassified (1 source) Unilateral primary osteoarthritis, right hip; Translations: [Unilateral primary osteoarthritis, right hip] Onset: 3 Unclassified (1 source) Dietary counseling and surveillance; Translations: [Dietary counseling and surveillance] Onset: 3 Urinary tract infections (6 sources) Urinary tract infectious disease; Translations: [Urinary tract infection, site not specified] Onset: 7 Episodic Varicose veins of lower extremity (7 sources) Asymptomatic varicose veins of unspecified lower extremity; Translations: [Pain co-occurrent and due to varicose veins of bilateral legs] Onset: 3 Episodic Past or Other Problems Problem Classification Problem Date Documented Date Episodic/Chronic Abdominal hernia (1 source) Diaphragmatic hernia without obstruction or gangrene; Translations: [DIAPH HERNIA W/O OBST/GANGRENE] Onset: 12-07-2022 Episodic Acute and unspecified renal failure (1 source) Acute kidney failure, unspecified; Translations: [ACUTE KIDNEY FAILURE UNSPECIFIED] Onset: 05-16-2022 Episodic Fever of unknown origin (4 sources) Fever, unspecified; Translations: [FEVER UNSPECIFIED] Onset: 04-25-2022 Episodic Genitourinary symptoms and ill-defined conditions (3 sources) Dysuria; Translations: [Dysuria] Onset: 05-21-2017 Episodic Immunizations and screening for infectious disease (2 sources) Contact with and (suspected) exposure to other viral communicable diseases; Translations: [Encounter for screening for human papillomavirus (HPV)] Onset: 07-25-2021 Resolved: 07-25-2021 Episodic Noninfectious gastroenteritis (3 sources) Non-infective enteritis and colitis; Translations: [Noninfective gastroenteritis and colitis, unspecified] Onset: 10-22-2014 Episodic Other bone disease and musculoskeletal deformities (1 source) Other specified disorders of bone density and structure, left ankle and foot; Translations: [OTH D/O BONE DEN STRUCT LT ANK FOOT] Onset: 06-26-2022 Episodic Other connective tissue disease (1 source) Arthrodesis status; Translations: [ARTHRODESIS STATUS] Onset: 05-16-2022 Episodic Other connective tissue disease (3 sources) Bicipital tenosynovitis; Translations: [Bicipital tendinitis, right shoulder] Onset: 09-19-2018 Episodic Other connective tissue disease (3 sources) Disorder of soft tissue; Translations: [Disorders of soft tissue, unspecified] Onset: 06-07-2017 Episodic Other liver diseases (3 sources) Elevated levels of transaminase & lactic acid dehydrogenase; Translations: [Nonspecific elevation of levels of transaminase or lactic acid dehydrogenase (LDH)] Onset: 12-10-2016 Episodic Other nervous system disorders (3 sources) Paresthesia; Translations: [Paresthesia of skin] Onset: 12-11-2017 Episodic Other non-traumatic joint disorders (6 sources) Pain in right hip; Translations: [Right hip pain M25.551] Onset: 06-23-2021 Resolved: 06-23-2021 Episodic Other non-traumatic joint disorders (1 source) Pain in left ankle and joints of left foot; Translations: [PAIN IN LEFT ANKLE] Onset: 06-26-2022 Episodic Other non-traumatic joint disorders (3 sources) Arthralgia of the lower leg; Translations: [Pain in joint, lower leg] Onset: 05-15-2016 Episodic Other non-traumatic joint disorders (3 sources) Arthralgia of the pelvic region and thigh; Translations: [Pain in joint, pelvic region and thigh] Onset: 05-15-2016 Episodic Residual codes; unclassified (1 source) Asymptomatic menopausal state; Translations: [ASYMPTOMATIC MENOPAUSAL STATE] Onset: 12-07-2022 Episodic Residual codes; unclassified (1 source) Family history of malignant neoplasm of other organs or systems; Translations: [FAM HX MALIG NEOPLASM OTH ORGN/SYS] Onset: 11-05-2022 Episodic Screening and history of mental health and substance abuse codes (4 sources) Personal history of nicotine dependence; Translations: [History of tobacco use] Onset: 01-01-2017 Episodic Septicemia (except in labor) (4 sources) Sepsis, unspecified organism; Translations: [Sepsis due to Enterococcus] Onset: 04-22-2022 Episodic Skin and subcutaneous tissue infections (4 sources) Cellulitis of left lower limb; Translations: [Cellulitis and abscess of trunk] Onset: 11-28-2018 Episodic Sprains and strains (3 sources) Neck sprain; Translations: [Neck sprain and strain] Onset: 01-04-2015 Episodic Results Test Name Value Interpretation Reference Range Facility XR hip RT min 2V(w/wo pelvis )*on 10-17-2023 XR hip RT min 2V(w/wo pelvis)* [address] [address] XRay Report Signed Patient: Nicol Smith MR#: [id number] 9 : 1960 Acct:[id number] Age/Sex: 63 / F ADM Date: 10/17/23 [place] [facility] [place] Type[place] [facility] Attending Dr: David Mcfarland II, MD Copies to: David Mcfarland MD Ordering Provider: David Mcfarland MD Date of Service: 10/17/23 XR/XR hip RT min 2V(w/wo pelvis)*: Aftercare following joint replacement surgery;Presence of ri 2 views right hip with single view pelvis plain film COMPARISON: 09/03/2023 HISTORY: Status post right total hip arthroplasty ACUTE FINDINGS: None DEGENERATIVE CHANGE: Unremarkable SOFT TISSUE FINDINGS: Unremarkable JOINT EFFUSION: None POSTOP CHANGES: Stable bilateral hip arthroplasties. BONY MINERALIZATION: Adequate XR/XR hip RT min 2V(w/wo pelvis)* IMPRESSION: Stable right hip arthroplasty. Impression dictated by: Kane Katz M.D.10/17/2023 3:39 PM Dictation Location: [place] [address] Transcribed By: [facility] 10/17/23 1539 Dictated By: Kane Katz DO 10/17/23 1538 Signed By: 10/17/23 1539 Normal [facility] XR hip RT min 2V(w/wo pelvis)* [facility] Other XR hip RT min 2V(w/wo pelvis)* [facility] Other XR hip RT min 2V(w/wo pelvis)* [address] [place] [address] [facility]) Other XR hip RT min 2V(w/wo pelvis)* [place] [address] [employer] Other XR hip RT min 2V(w/wo pelvis)* XRay Report [employer] Other XR hip RT min 2V(w/wo pelvis)* Signed [employer] Other XR hip RT min 2V(w/wo pelvis)* Patient: Nicol Smith MR#: [id number] [employer] Other XR hip RT min 2V(w/wo pelvis)* 9 [employer] Other XR hip RT min 2V(w/wo pelvis)* : 1960 Acct:[id number] [employer] Other XR hip RT min 2V(w/wo pelvis)* Age/Sex: 63 / F ADM Date: 10/17/23 [employer] Other XR hip RT min 2V(w/wo pelvis)* Loc: [facility] Room: Type: [facility] [employer] Other XR hip RT min 2V(w/wo pelvis)* Attending Dr: David Mcfarland II, MD [employer] Other XR hip RT min 2V(w/wo pelvis)* Copies to: David Mcfarland MD [employer] Other XR hip RT min 2V(w/wo pelvis)* Ordering Provider: David Mcfarland MD [employer] Other XR hip RT min 2V(w/wo pelvis)* Date of Service: 10/17/23 [employer] Other XR hip RT min 2V(w/wo pelvis)* XR/XR hip RT min 2V(w/wo pelvis)*: Aftercare following joint replacement [employer] Other XR hip RT min 2V(w/wo pelvis)* surgery;Presence of ri [employer] [facility] [employer] Other XR hip RT min 2V(w/wo pelvis)* 2 views right hip with single view pelvis plain film [employer] Other XR hip RT min 2V(w/wo pelvis)* COMPARISON: 09/03/2023 [employer] Other XR hip RT min 2V(w/wo pelvis)* HISTORY: Status post right total hip arthroplasty [employer] Other XR hip RT min 2V(w/wo pelvis)* ACUTE FINDINGS: None [employer] Other XR hip RT min 2V(w/wo pelvis)* DEGENERATIVE CHANGE: Unremarkable [employer] Other XR hip RT min 2V(w/wo pelvis)* SOFT TISSUE FINDINGS: Unremarkable [employer] Other XR hip RT min 2V(w/wo pelvis)* JOINT EFFUSION: None [employer] Other XR hip RT min 2V(w/wo pelvis)* POSTOP CHANGES: Stable bilateral hip arthroplasties. [employer] Other XR hip RT min 2V(w/wo pelvis)* BONY MINERALIZATION: Adequate [employer] Other XR hip RT min 2V(w/wo pelvis)* XR/XR hip RT min 2V(w/wo pelvis)* [employer] Other XR hip RT min 2V(w/wo pelvis)* IMPRESSION: Stable right hip arthroplasty. [employer] Other XR hip RT min 2V(w/wo pelvis)* Impression dictated by: Kane Katz M.D.10/17/2023 3:39 PM [employer] Other XR hip RT min 2V(w/wo pelvis)* Dictation Location: [place] [address] [employer] Other XR hip RT min 2V(w/wo pelvis)* Transcribed By: SILVIA 10/17/23 7679 [employer] Other XR hip RT min 2V(w/wo pelvis)* Dictated By: Kane Katz DO 10/17/23 0899 [employer] Other XR hip RT min 2V(w/wo pelvis)* Signed By: [employer] Other XR hip RT min 2V(w/wo pelvis)* 10/17/23 6616 [employer] Other ABO/Rh Retypeon 09-03-2023 ABO/RH Recheck Result Positive Normal Fir [facility] Comment on above: Result Comment: PERF ORMED BY: [facility] [place] [address] [place] [address] PATHOLOGIST SECOND HELPER SUAD Killian 09-03-2023 L ------ Specimen: [id number] Received: 09/03/23 Status: GRACIELA Chavez Num: [id number] Spec Type: Surgical Subm Dr: David Mcfarland MD Tissues: A Femoral Head - Other than Fracture (RT HIP) Procedures: HE/2, Gross/Micro L3, Decalcification Age/ Patient Sex Location Account Attending Physician Nicol Smith 63/F PA [id number] David Mcfarland MD SPEC NUM: [id number] RECD: 09/03/23 STATUS: GRACIELA CHAVEZ NUM: [id number] SABRINA: 09/03/[address] [facility] [address]: David Mcfarland MD ENTERED: 09/03/23 [facility] DR: BEATRICE TYPE: Surgical DEPT: S ORDERED: HE/2, Gross/Micro L3, Decalcification ORDERED: HE/2, Gross/Micro L3, Decalcification Pathological Diagnosis Right hip bone and tissue, arthroplasty: - Gross examination only, see the gross description Clinical Information DJD right hip, no exam required Gross Description Received in formalin labeled with the patient's name, date of and bone and tissue right hip is a 6.4 x 5.3 x 5.2 cm femoral head with an attached 2.3 x 1.2 x 1.0 cm kiser-garrido ligament and a detached 10.0 x 9.2 x 2.7 cm aggregate of kiser-red bone and soft tissue. The femoral head has a smooth to granular, kiser-garrido articular surface with eburnation identified. The cut surface is yellow-kiser, trabecular, hyperemic. Thinning of the articular cartilage is identified with some cortical cystic changes. A gross photo is taken. Gross examination only. CPT Codes 83529 Specimen: [id number] Received: 09/03/23 Status: GRACIELA Chavez Num: [id number] Spec Type: Surgical Subm Dr: David Mcfarland MD Tissues: A Femoral Head - Other than Fracture (RT HIP) Procedures: HE/2, Gross/Micro L3, Decalcification Patient: Nicol Smith [id number] (Continued) Specimen: [id number] Received: 09/03/23 (Continued) Signed (signature on file) Dez Núñez MD 09/07/23 1345 Specimen: [id number] Received: 09/03/23 Status: GRACIELA Chavez Num: [id number] Spec Type: Surgical Subm Dr: David Mcfarland MD Tissues: A Femoral Head - Other than Fracture (RT HIP) Procedures: /2, Gross/Micro L3, Decalcification Patient: RomeoNicol Gonsales [id number] (Continued) Specimen: [id number] Received: 09/03/23 (Continued) Maikol Photo Specimen: [id number] Received: 09/03/23 Status: GRACIELA Chavez Num: [id number] Spec Type: Surgical Subm Dr: David Mcfarland MD Tissues: A Femoral Head - Other than Fracture (RT HIP) Procedures: HE/2, Gross/Micro L3, Decalcification Patient: Nicol Smith [id number] (Continued) Signed (signature on file) Dez Núñez MD 09/07/23 1345 Normal [facility] XR low pelvis w/RT x-table h ipon 09-03-2023 XR low pelvis w/RT x-table hip [place] [address] XRay Report Signed Patient: Nicol Smith MR#: [id number] 9 : 1960 Acct:[id number] Age/Sex: 63 / F ADM Date: 09/03/23 Loc: [place] Room: Type: [facility] Attending Dr: David Mcfarland II, MD Copies to: David Mcfarland MD Ordering Provider: David Mcfarland MD Date of Service: 09/03/23 XR/XR low pelvis w/RT x-table hip: Total Hip, due in PACU ([id number]) XR/XR hip RT 1V: ANTERIOR HIP IN O.R. CLINICAL DATA: Degenerative change at the right hip. Hip replacement. PORTABLE RIGHT HIP -8 images: COMPARISON: 08/15/2023 Multiple AP spot films were obtained of the right hip during and after placement of a hip prosthesis. The hardware appears intact and in appropriate position. No developing fracture or dislocation is noted. Cumulative Air Kerma in mGy: 8.10 mGy LOW AP PELVIS AND RIGHT HIP - 2 views COMPARISON: 08/15/2023 AP low pelvis and crosstable lateral view of the right hip were obtained. There are now bilateral hip prostheses. The hardware appears intact and in appropriate position. No developing fractures or dislocation are seen. There is a small amount of subcutaneous postoperative air lateral to the right hip. XR/XR hip RT 1V IMPRESSION: SATISFACTORY APPEARANCE OF HIP REPLACEMENTS. Impression dictated by: Anna Hull M.D.09/03/2023 11:53 AM Dictation Location: [place] [address] Transcribed By: [facility] 09/03/23 115 Dictated By: Anna Hull MD 09/03/23 115 Signed By: 09/03/23 115 Normal [facility] Automated erythrocytes count in urine sediment (number/area)Ordered By: David Mcfarland on 08-28-2023 RBC Auto (Urine sed) [#/Area] 1-2 [HPF] 0-4 [facility] Automated leukocytes count i n urine sediment (number/area)Ordered By: David Mcfarland on 08-28-2023 WBC Auto (Urine sed) [#/Area] 10-19 [HPF] 0-4 [facility] Basic Metabolic Panelon 08-02 Anion gap [Moles/Vol] 11.1 mmol/L Normal 6.0-15.0 [facility] Comment on above: Performed By: #### C HOPE, BMP #### [address] #### FRUC #### [facility] , Calcium [Mass/Vol] 9.7 mg/dL Normal 8.6-10.3 [facility] Comment on above: Result Comment: PERF ORMED BY: [place] [address] PATHOLOGIST SECOND HELPER SUAD ARREAGA M.D. Performed By: #### C HOPE, BMP #### [address] [address] [place] #### FRUC #### [facility] , Chloride [Moles/Vol] 107 mmol/L Normal 98-107 [facility] Comment on above: Performed By: #### C BC, BMP #### [place] [address] [place] #### FRUC #### [facility] , CO2 [Moles/Vol] 26.1 mmol/L Normal 21.0-31.0 [facility] Comment on above: Performed By: #### C BC, BMP #### [facility] [address] [place] [address] [place] #### FRUC #### [facility] , Creatinine [Mass/Vol] 0.96 mg/dL Normal 0.60-1.20 [facility] Comment on above: Performed By: #### C BC, BMP #### [place] [address] [place] #### FRUC #### [facility] , GFR/1.73 sq M.predicted MDRD (S/P/Bld) [Vol rate/Area] mL/min/{1.73_m2} Normal [facility] Comment on above: Performed By: #### C BC, BMP #### [facility] [address] [place] [address] [place] #### FRUC #### [facility] , Glucose [Mass/Vol] 98 mg/dL Normal 70-100 [facility] Comment on above: Result Comment: [place] om Glucose Reference Range is dependent on time and content of last meal. Glucose of more than 200 mg/dL in a nonstressed, ambulatory subject supports the diagnosis of Diabetes Mellitus. ADA recommended reference range Performed By: #### C BC, BMP #### [place] [address] [place] #### FRUC #### [facility] , Potassium [Moles/Vol] 4.2 mmol/L Normal 3.5-5.1 [facility] Comment on above: Performed By: #### C BC, BMP #### [facility] [address] [place] [address] [place] #### FRUC #### [facility] , Sodium [Moles/Vol] 140 mmol/L Normal 136-145 [facility] Comment on above: Performed By: #### C BC, BMP #### [facility] [address] [place] [address] [place] #### FRUC #### [facility] , Urea nitrogen [Mass/Vol] 17 mg/dL Normal 7-25 [facility] Comment on above: Performed By: #### C BC, BMP #### [facility] [address] [place] [address] [place] #### FRUC #### [facility] , Basophils Auto (Bld) [#/Vol] Ordered By: David Mcfarland on 08-28-2023 Basophils (Bld) [#/Vol] 0.1 10*3/uL 0.0-0.2 [facility] Basophils/100 WBC Auto (Bld) Ordered By: David Mcfarland on 08-28-2023 Basophils/100 WBC (Bld) 1.1 % . [facility] Bilirubin Test strip Ql (U)O rdered By: David Mcfarland on 08-28-2023 Bilirubin Ql (U) Negative Negative [facility] Calcium [Mass/volume] in Ser um or PlasmaOrdered By: David Mcfarland on 08-28-2023 Calcium [Mass/Vol] 9.7 mg/dL 8.6-10.3 [facility] Carbon dioxide, total [Moles /volume] in Serum or PlasmaOrdered By: David Mcfarland on 08-28-2023 CO2 [Moles/Vol] 26.1 mmol/L 21.0-31.0 [facility] Chloride [Moles/volume] in S adela or PlasmaOrdered By: David Mcfarland on 08-28-2023 Chloride [Moles/Vol] 107 mmol/L 98-107 [facility] Color Auto (U)Ordered By: Arleth Mcfarland on 08-28-2023 Color (U) Yellow Yellow [facility] Complete Blood Count Auto Di ffon 08-28-2023 Basophils (Bld) [#/Vol] 0.1 10*3/uL Normal 0.0-0.2 [facility] Comment on above: Result Comment: PERF ORMED BY: [place] [address] PATHOLOGIST SECOND HELPER SUAD ARREAGA M.D. Performed By: #### C BC, BMP #### [address] #### FRUC #### [facility] , Basophils/100 WBC (Bld) 1.1 % Normal . [facility] Comment on above: Performed By: #### C BC, BMP #### [facility] [address] [place] [address] [place] #### FRUC #### [facility] , Eosinophils (Bld) [#/Vol] 0.1 10*3/uL Normal 0.0-0.45 [facility] Comment on above: Performed By: #### C BC, BMP #### [place] [address] [place] #### FRUC #### [facility] , Eosinophils/100 WBC (Bld) 1.0 % Normal . [facility] Comment on above: Performed By: #### C BC, BMP #### [facility] [address] [place] [address] [place] #### FRUC #### [facility] , Erythrocyte distribution width (RBC) [Ratio] 17.5 % High 11.9-15.3 [facility] Comment on above: Performed By: #### C BC, BMP #### [facility] [address] [place] [address] [place] #### FRUC #### [facility] , Hematocrit (Bld) [Volume fraction] 36.9 % Normal 34.0-46.4 [facility] Comment on above: Performed By: #### C BC, BMP #### [facility] [address] [place] [address] [place] #### FRUC #### [facility] , Hemoglobin (Bld) [Mass/Vol] 11.9 g/dL Normal 11.8-15.4 [facility] Comment on above: Performed By: #### C BC, BMP #### [place] [address] [place] #### FRUC #### [facility] , Lymphocytes (Bld) [#/Vol] 1.6 10*3/uL Normal 1.00-4.8 [facility] Comment on above: Performed By: #### C BC, BMP #### [place] [address] [place] #### FRUC #### [facility] , Lymphocytes/100 WBC (Bld) 25.3 % Normal . [facility] Comment on above: Performed By: #### C BC, BMP #### [place] [address] [place] #### FRUC #### [facility] , MCH (RBC) [Entitic mass] 25.0 pg Normal 24.7-34.3 [facility] Comment on above: Performed By: #### C BC, BMP #### [place] [address] [place] #### FRUC #### [facility] , MCV (RBC) [Entitic vol] 78.0 fL Low 80-100 [facility] Comment on above: Performed By: #### C BC, BMP #### [place] [address] [place] #### FRUC #### [facility] , Mean Corpuscular HGB Conc 32.1 g/dL Normal 32.0-35.0 [facility] Comment on above: Performed By: #### C BC, BMP #### [facility] [address] [place] [address] [place] #### FRUC #### [facility] , Monocytes (Bld) [#/Vol] 0.5 10*3/uL Normal 0.0-0.8 [facility] Comment on above: Performed By: #### C BC, BMP #### [place] [address] [place] #### FRUC #### [facility] , Monocytes/100 WBC (Bld) 7.6 % Normal . [facility] Comment on above: Performed By: #### C BC, BMP #### [facility] [address] [place] [address] [place] #### FRUC #### [facility] , Neutrophils (Bld) [#/Vol] 4.2 10*3/uL Normal 1.8-7.7 [facility] Comment on above: Performed By: #### C BC, BMP #### [facility] [address] [place] [address] [place] #### FRUC #### [facility] , Neutrophils/100 WBC (Bld) 65.0 % Normal . [facility] Comment on above: Performed By: #### C BC, BMP #### [facility] [address] [place] [address] [place] #### FRUC #### [facility] , NRBC% 0.1 /100{WBC} Normal 0-0.5 [facility] Comment on above: Performed By: #### C BC, BMP #### [facility] [address] [place] [address] [place] #### FRUC #### [facility] , Platelet mean volume (Bld) [Entitic vol] 8.0 fL Normal 6.3-10.7 [facility] Comment on above: Performed By: #### C BC, BMP #### [facility] [address] [place] [address] [place] #### FRUC #### [facility] , Platelets (Bld) [#/Vol] 387 10*3/uL Normal 150-450 [facility] Comment on above: Performed By: #### C BC, BMP #### [place] [address] [place] #### FRUC #### [facility] , RBC (Bld) [#/Vol] 4.74 10*6/uL Normal 3.60-5.00 [facility] Comment on above: Performed By: #### C BC, BMP #### [place] [address] [place] #### FRUC #### [facility] , WBC (Bld) [#/Vol] 6.4 10*3/uL Normal 3.8-11.6 [facility] Comment on above: Performed By: #### C BC, BMP #### [place] [address] [place] #### FRUC #### [facility] , Creatinine [Mass/volume] in Serum or PlasmaOrdered By: David Mcfarland on 08-28-2023 Creatinine [Mass/Vol] 0.96 mg/dL 0.60-1.20 [facility] Dipstick and Microscopicon 1 10-28-2022 Appearance (U) Clear Normal Clear [facility] Comment on above: Order Comment: Name Collection Type:: Clean-Voided Midstream Performed By: #### C BC, BMP #### [place] [address] [place] #### FRUC #### [facility] , Bacteria,Urine None Seen Normal None Seen [facility] Comment on above: Order Comment: Name Collection Type:: Clean-Voided Midstream Performed By: #### C BC, BMP #### [place] [address] [place] #### FRUC #### [facility] , Bilirubin,Urine Negative Normal Negative [facility] Comment on above: Order Comment: Name Collection Type:: Clean-Voided Midstream Performed By: #### C BC, BMP #### [place] [address] [place] #### FRUC #### [facility] , Color (U) Yellow Normal Yellow [facility] Comment on above: Order Comment: Name Collection Type:: Clean-Voided Midstream Performed By: #### C BC, BMP #### [address] #### FRUC #### [facility] , Glucose Ql (U) Normal Normal Normal [facility] Comment on above: Order Comment: Name Collection Type:: Clean-Voided Midstream Performed By: #### C BC, BMP #### [address] #### FRUC #### [facility] , Hyaline Casts,Urine 0-8 Normal 0-8 [facility] Comment on above: Order Comment: Name Collection Type:: Clean-Voided Midstream Result Comment: PERF ORMED BY: [place] [address] PATHOLOGIST SECOND HELPER SUAD ARREAGA M.D. Performed By: #### C BC, BMP #### [place] [address] [place] #### FRUC #### [facility] , Ketones Ql (U) Negative Normal Negative [facility] Comment on above: Order Comment: Name Collection Type:: Clean-Voided Midstream Performed By: #### C BC, BMP #### [place] [address] [place] #### FRUC #### [facility] , Leukocyte esterase Test strip Ql (U) 3+ High Negative [facility] Comment on above: Order Comment: Name Collection Type:: Clean-Voided Midstream Performed By: #### C BC, BMP #### [address] #### FRUC #### [facility] , Nitrite,Urine Negative Normal Negative [facility] Comment on above: Order Comment: Name Collection Type:: Clean-Voided Midstream Performed By: #### C BC, BMP #### [address] #### FRUC #### [facility] , Occult Blood,Urine Negative Normal Negative [facility] Comment on above: Order Comment: Name Collection Type:: Clean-Voided Midstream Result Comment: PERF ORMED BY: [place] [address] PATHOLOGIST SECOND HELPER SUAD ARREAGA M.D. Performed By: #### C BC, BMP #### [address] #### FRUC #### [facility] , pH (U) 5.5 [pH] Normal 5.0-9.0 [facility] Comment on above: Order Comment: Name Collection Type:: Clean-Voided Midstream Performed By: #### C BC, BMP #### [address] #### FRUC #### [facility] , Protein,Urine Negative Normal Negative [facility] Comment on above: Order Comment: Name Collection Type:: Clean-Voided Midstream Performed By: #### C BC, BMP #### [address] #### FRUC #### [facility] , RBC,Urine 1-2 Normal 0-4 [facility] Comment on above: Order Comment: Name Collection Type:: Clean-Voided Midstream Performed By: #### C BC, BMP #### [facility] [address] [place] [address] [place] #### FRUC #### [facility] , Specificy [place],Urine 1.020 Normal 1.001-1.03 0 [facility] Comment on above: Order Comment: Name Collection Type:: Clean-Voided Midstream Performed By: #### C BC, BMP #### [place] [address] [place] #### FRUC #### [facility] , Squamous Epithelial Cell,Urine 3-4 High 0-2 [facility] Comment on above: Order Comment: Name Collection Type:: Clean-Voided Midstream Performed By: #### C BC, BMP #### [place] [address] [place] #### FRUC #### [facility] , Urobilinogen,Urine Normal Normal Normal [facility] Comment on above: Order Comment: Name Collection Type:: Clean-Voided Midstream Performed By: #### C BC, BMP #### [place] [address] [place] #### FRUC #### [facility] , WBC,Urine 10-19 High 0-4 [facility] Comment on above: Order Comment: Name Collection Type:: Clean-Voided Midstream Performed By: #### C BC, BMP #### [place] [address] [place] #### FRUC #### [facility] , ECG 12 lead ECGon 08-28-2023 ECG 12 lead ECG [facility] [place] [address] [place] [address] Electrocardiograph Report Signed Patient: Nicol Smith MR#: [id number] 9 : 1960 Acct:[id number] Age/Sex: 63 / F ADM Date: 08/28/23 Loc: PS Room: Type: [facility] Attending Dr: David Mcfarland II, MD Ordering Provider: David Mcfarland MD Date of Service: 08/28/23 ECG/ECG 12 lead ECG: RTHA Copies to: Test Reason : Blood Pressure : / mmHG Vent. Rate : 089 BPM Atrial Rate : 089 BPM P-R Int : 170 ms QRS Dur : 072 ms QT Int : 378 ms P-R-T Axes : 047 011 013 degrees QTc Int : 459 ms Normal sinus rhythm Normal ECG No previous ECGs available Confirmed by NAHID PINEDA [id number] on 08/28/2023 10:26:43 PM Referred By: BARTOLO Electronically Signed By:KAMARI MANN MD [facility] Transcribed By: GILDA Signed By Jonathan Mann MD 08/28/232225 Normal [facility] Eosinophils Auto (Bld) [#/Vo l]Ordered By: David Mcfarland on 08-28-2023 Eosinophils (Bld) [#/Vol] 0.1 10*3/uL 0.0-0.45 [facility] Eosinophils/100 WBC Auto (Bl d)Ordered By: David Mcfarland on 08-28-2023 Eosinophils/100 WBC (Bld) 1.0 % . [facility] Erythrocyte distribution wid th Auto (RBC) [Ratio]Ordered By: David Mcfarland on 08-28-2023 Erythrocyte distribution width (RBC) [Ratio] 17.5 % 11.9-15.3 [facility] Fructosamineon 08-28-2023 Fructosamine 205 umol/L Normal 0-285 [facility] Comment on above: Result Comment: Publ ished reference interval for apparently healthy subjects between age 20 and 60 is 205 - 285 umol/L and in a poorly controlled diabetic population is 228 - 563 umol/L with a mean of 396 umol/L. Performed at: - [facility] [id number] Chief Guard: Luis Mukherjee PhD, Phone: [phone] PERFORMED BY: [address] [address] PATHOLOGIST SECOND HELPER SUAD ARREAGA M.D. Performed By: #### C BC, BMP #### [facility] [address] #### FRUC #### [facility] , Fructosamine [Moles/volume] in Serum or PlasmaOrdered By: David Mcfarland on 08-28-2023 Fructosamine [Moles/Vol] 205 umol/L 0-285 [facility] Comment on above: Published reference interval for apparently healthysubjects between age 20 and 60 is 205 - 285 umol/L and in apoorly controlled diabetic population is 228 - 563 umol/Lwith a mean of 396 umol/L.Performed at: [facility] [id number] Director: Luis Mukherjee PhD, Phone: [phone] Glucose [Mass/volume] in Ser um or PlasmaOrdered By: David Mcfarland on 08-28-2023 Glucose [Mass/Vol] 98 mg/dL 70-100 [facility] Comment on above: ADA recommended refe rence rangeRandom Glucose Reference Range is dependent on time and content of last meal. Glucose of more than 200 mg/dL in a nonstressed, ambulatory subject supports the diagnosis of Diabetes Mellitus. Hematocrit Auto (Bld) [Volum e fraction]Ordered By: David Mcfarland on 08-28-2023 Hematocrit (Bld) [Volume fraction] 36.9 % 34.0-46.4 [facility] Hemoglobin [Mass/volume] in BloodOrdered By: David Mcfarland on 08-28-2023 Hemoglobin (Bld) [Mass/Vol] 11.9 g/dL 11.8-15.4 [facility] Ketones Auto test strip (U) [Mass/Vol]Ordered By: David Mcfarland on 08-28-2023 Ketones (U) [Mass/Vol] Negative Negative [facility] Laboratory - UrinalysisOrder ed By: David Mcfarland on 08-28-2023 Hyaline casts LM Ql (Urine sed) 0-8 [LPF] 0-8 [facility] Leukocytes [#/volume] correc janell for nucleated erythrocytes in Blood by Automated counOrdered By: David Mcfarland on 08-28-2023 WBC corrected for nucl RBC Auto (Bld) [#/Vol] 6.4 10*3/uL 3.8-11.6 [facility] Lymphocytes Auto (Bld) [#/Vo l]Ordered By: David Mcfarland on 08-28-2023 Lymphocytes (Bld) [#/Vol] 1.6 10*3/uL 1.00-4.8 [facility] Lymphocytes/100 WBC Auto (Bl d)Ordered By: David Mcfarland on 08-28-2023 Lymphocytes/100 WBC (Bld) 25.3 % . [facility] MCH Auto (RBC) [Entitic mass ]Ordered By: David Mcfarland on 08-28-2023 MCH (RBC) [Entitic mass] 25.0 pg 24.7-34.3 [facility] MCHC Auto (RBC) [Mass/Vol]Or dered By: David Mcfarland on 08-28-2023 MCHC (RBC) [Mass/Vol] 32.1 g/dL 32.0-35.0 [facility] MCV Auto (RBC) [Entitic vol] Ordered By: David Mcfarland on 08-28-2023 MCV (RBC) [Entitic vol] 78.0 fL 80-100 [facility] Monocytes Auto (Bld) [#/Vol] Ordered By: David Mcfarland on 08-28-2023 Monocytes (Bld) [#/Vol] 0.5 10*3/uL 0.0-0.8 [facility] Monocytes/100 WBC Auto (Bld) Ordered By: David Mcfarland on 08-28-2023 Monocytes/100 WBC (Bld) 7.6 % . [facility] Neutrophils Auto (Bld) [#/Vo l]Ordered By: David Mcfarland on 08-28-2023 Neutrophils (Bld) [#/Vol] 4.2 10*3/uL 1.8-7.7 [facility] Neutrophils/100 WBC Auto (Bl d)Ordered By: David Mcfarland on 08-28-2023 Neutrophils/100 WBC (Bld) 65.0 % . [facility] Nitrite Test strip Ql (U)Ord ered By: David Mcfarland on 08-28-2023 Nitrite Ql (U) Negative Negative [facility] No Panel InformationOrdered By: David Mcfarland on 08-28-2023 Estimated GFR (CKD-EPI) > 60.0 mL/Min [facility] Creatinine Clearance (Chem N/A [facility] Nucleated erythrocytes [Pres ence] in Blood by Automated countOrdered By: David Mcfarland on 08-28-2023 Nucleated RBC Auto Ql (Bld) 0.1 /100{WBC} 0-0.5 [facility] PST Type and Screenon 2022 ABO and Rh group Nom (Bld) Blood group B Rh(D) positive Normal [facility] Comment on above: Order Comment: Date of Surgery: [id number] Platelet mean volume Auto (B ld) [Entitic vol]Ordered By: David Mcfarland on 08-28-2023 Platelet mean volume (Bld) [Entitic vol] 8.0 fL 6.3-10.7 [facility] Platelets Auto (Bld) [#/Vol] Ordered By: David Mcfarland on 08-28-2023 Platelets (Bld) [#/Vol] 387 10*3/uL 150-450 [facility] Potassium [Moles/volume] in Serum or PlasmaOrdered By: David Mcfarland on 08-28-2023 Potassium [Moles/Vol] 4.2 mmol/L 3.5-5.1 [facility] Protein Auto test strip (U) [Mass/Vol]Ordered By: David Mcfarland on 08-28-2023 Protein (U) [Mass/Vol] Negative Negative [facility] RBC Auto (Bld) [#/Vol]Ordere d By: David Mcfarland on 08-28-2023 RBC (Bld) [#/Vol] 4.74 10*6/uL 3.60-5.00 [facility] Serum or plasma anion gap de terminationOrdered By: David Mcfarland on 08-28-2023 Anion gap [Moles/Vol] 11.1 mmol/L 6.0-15.0 [facility] Sodium [Moles/volume] in Ser um or PlasmaOrdered By: David Mcfarland on 08-28-2023 Sodium [Moles/Vol] 140 mmol/L 136-145 [facility] Specific gravity Auto test s trip (U) [Rel density]Ordered By: David Mcfarland on 08-28-2023 Specific gravity (U) [Rel density] 1.020 1.001-1.03 0 [facility] Squamous epithelial cells de tection in urine sediment by light microscopyOrdered By: David Mcfarland on 08-28-2023 Epithelial cells.squamous LM Ql (Urine sed) 3-4 [HPF] 0-2 [facility] Urea nitrogen [Mass/volume] in Serum or PlasmaOrdered By: David Mcfarland on 08-28-2023 Urea nitrogen [Mass/Vol] 17 mg/dL 7-25 [facility] Urine Cultureon 08-28-2023 Bacteria identified Cx Nom (U) 50,000 colonies/ml mixed bacterial skin contaminants 2 Days PERFORMED BY: [place] [address] PATHOLOGIST SECOND HELPER SUAD ARREAGA M.D. [facility] Comment on above: Performed By: #### C BC, BMP #### [address] #### FRUC #### [facility] , Urine bacteria detection by automated methodOrdered By: David Mcfarland on 08-28-2023 Bacteria Auto Ql (U) None seen None Seen [facility] Urine clarity by refractomet ry automatedOrdered By: David Mcfarland on 08-28-2023 Clarity Refractometry automated (U) Clear Clear [facility] Urine culture routineOrdered By: David Mcfarland on 08-28-2023 Bacteria identified Cx Nom (U) 2 Days [facility] Urine glucose measurement by automated test strip (mass/volume)Ordered By: David Mcfarland on 08-28-2023 Glucose Auto test strip (U) [Mass/Vol] Normal mg/dL Normal [facility] Urine hemoglobin detection b y automated test stripOrdered By: David Mcfarland on 08-28-2023 Hemoglobin Auto test strip Ql (U) Negative Negative [facility] Urine leukocyte esterase det ection by automated test stripOrdered By: David Mcfarland on 08-28-2023 Leukocyte esterase Auto test strip Ql (U) 3+ Negative [facility] Urobilinogen Auto test strip (U) [Mass/Vol]Ordered By: Davdi Mcfarland on 08-28-2023 Urobilinogen (U) [Mass/Vol] Normal mg/dL Normal [facility] WBC Auto (Bld) [#/Vol]Ordere d By: David Mcfarland on 08-28-2023 WBC (Bld) [#/Vol] 6.4 10*3/uL 3.8-11.6 [facility] pH Auto test strip (U)Ordere d By: David Mcfarland on 08-28-2023 pH (U) 5.5 [pH] 5.0-9.0 [facility] XR hip RT min 2V(w/wo pelvis )*on 08-15-2023 XR hip RT min 2V(w/wo pelvis)* [place] [address] XRay Report Signed Patient: Nicol Smith MR#: [id number] : 1960 Acct:[id number] Age/Sex: 63 / F ADM Date: 08/15/23 [place] [facility] [place] [facility] Attending Dr: David Mcfarland II, MD Copies to: David Mcfarland MD Ordering Provider: David Mcfarland MD Date of Service: 08/15/23 XR/XR hip RT min 2V(w/wo pelvis)*: Osteoarthritis of right hip RIGHT HIP - 2 views: CLINICAL HISTORY: Chronic right hip pain. COMPARISON: Hip series 09/06/2022 FINDINGS: There are severe degenerative changes of the right hip without acute bony process. Partially visualized left hip prosthesis without radiographic complication. Additional degenerative changes are noted involving the visualized lower lumbar spine, SI joints and pubic symphysis. XR/XR hip RT min 2V(w/wo pelvis)* IMPRESSION: SEVERE DEGENERATIVE CHANGES OF THE RIGHT HIP WITHOUT ACUTE BONY PROCESS.. Impression dictated by: Stalin Matamoros Jr., D.O.08/15/2023 4:18 PM Dictation Location: [place] [address] Transcribed By: [facility] 08/15/231617 Dictated By: Stalin Matamoros Jr, DO 08/15/231616 Signed By: 08/15/231617 [facility] Office Visiton 07-16-2023 Follow-up visit [id number] Nicol Smith 1960 F Date Provider Department Center 07/16/2023 KIMBERLY BAKER [facility] Family History Problem Relation Age of Onset Diabetes Father Heart failure Father Diabetes Paternal Grandmother Diabetes Paternal Grandfather Family Status - Relation Status Age at Father Paternal Grandmother Paternal Grandfather Level of Service:63143 ME OFFICE/OUTPATIENT ESTABLISHED MOD MDM 30-39 MIN Normal [facility] TSHon 01-19-2023 TSH 5.502 uIU/mL Critically high 0.358-3.74 0 [facility] Comment on above: Performed By: #### T SH ####[facility] [address] [place] [address]Dr. Darrick Cao GTT 2 HRon 12-12-2022 Glucose [Mass/Vol] 117 mg/dL Critically high 74-106 T [facility] Comment on above: Performed By: #### G TT2 ####[facility] [address] [place] [address]Dr. Darrick Cao Glucose [Mass/Vol] 227 mg/dL Normal [facility] Comment on above: Performed By: #### G TT2 ####[facility] [address] [place] [address]Dr. Darrick [facility] Glucose [Mass/Vol] 121 mg/dL Normal [facility] Comment on above: Performed By: #### G TT2 ####[facility] [address] [place] [address]Dr. Adrylan Cao TSHon 12-12-2022 TSH 6.852 uIU/mL Critically high 0.358-3.74 0 [facility] Comment on above: Performed By: #### P OCGLUC #### [facility] [address] [address] [address] Darrick Cao Outside Colonoscopyon 2022 Outside Colonoscopy [id number]:127 [facility] Reminderson 12-07-2022 Reminders - From: Yu Waters LPN To: N - Clinical; Sent: 12/07/2022 08:47:38 EST Show up: 11/08/2032 07:00:00 EST Subject: colonoscopy recall Due Date/Time: 12/06/2032 07:00:00 EST Reminder/Recall Patient is due for screening colonoscopy 12/06/2032. [facility] Consent for Procedure/Surger yon 11-09-2022 Consent for Procedure/Surgery [id number]:127 [facility] Consent for Procedure/Surgery [id number]:127 [facility] Facesheeton 11-09-2022 Facesheet [id number]#[id number]:127 [facility] Ambulatory Visit Summaryon 0 11-08-2022 Ambulatory Visit Summary NIOCL SMITH :1960 Visit Date:11/08/2022 Ambulatory Visit Instructions Your Diagnosis Screening for malignant neoplasm of colon BMI 45.0-49.9, adult Your Care Team Attending Physician - SOPHIA PINEDA, Efrain Vaz Primary Care Physician - KARI PINEDA, WAQAS This Is Your Medications List Contact prescribing physician if questions or concerns atorvastatin (atorvastatin 20 mg Tab) bifidobacterium/lactobacil eligio/streptococcus (High Potency Probiotic) cholecalciferol (Vitamin D3 1000 intl units oral tablet) diclofenac (Diclofenac 75mg Tab-DR) metoprolol (metoprolol 25 mg ER Tab) pantoprazole (Protonix 40 mg Tab-DR) pregabalin (pregabalin 75 mg Cap) Procedures Performed Varicose veins of left leg (10/01/2020), EGD - Esophagogastroduodenoscopy (09/08/2020), Arthroplasty, Bilateral bone spur of calcaneum, Carpal tunnel release, 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, Inject trigger finger/thumb, Plantar fasciotomy, Tonsillectomy and adenoidectomy. Discharge Vitals Heart Rate (Peripheral) 80 Respiratory Rate 16 Blood Pressure 118/74 Height 172.72 cm Height 68 in Weight 136 kg Weight 299.2 lb BMI 45.59 Medications What How Much When Instructions Unchanged atorvastatin (atorvastatin 20 mg Tab) 1 Tablets By Mouth Every day Contact prescribing physician if questions or concerns Unchanged bifidobacterium/ lactobacillus/ streptococcus (High Potency Probiotic) 1 Tablets By Mouth Every day Contact prescribing physician if questions or concerns Unchanged cholecalciferol (Vitamin D3 1000 intl units oral tablet) 1 Tablets By Mouth Every day Contact prescribing physician if questions or concerns Unchanged diclofenac (Diclofenac 75mg Tab-DR) 75 Milligram By Mouth 2 times a day Contact prescribing physician if questions or concerns Unchanged metoprolol (metoprolol 25 mg ER Tab) 1 Tablets By Mouth Every day Contact prescribing physician if questions or concerns Unchanged pantoprazole (Protonix 40 mg Tab-DR) 1 Tablets By Mouth Every day Contact prescribing physician if questions or concerns Unchanged pregabalin (pregabalin 75 mg Cap) 1 Capsules By Mouth 2 times a day Contact prescribing physician if questions or concerns Allergies Cymbalta (Vision impairment level) metFORMIN (Abdominal lump) penicillin (Rash) Problems Ongoing - Any problem that you are currently receiving treatment for. Allergic rhinitis Antral gastritis BMI 45.0-49.9, adult BMI 45.0-49.9, adult Chronic antral gastritis GERD (gastroesophageal reflux disease) Hiatal hernia with GERD History of rectal bleeding Hyperlipidemia Hyperthyroidism Postmenopausal Pulmonary nodule Regurgitation of food Screening for malignant neoplasm of colon Normal [facility] MG MAMM SCREEN 3D BONNIE CADon 11-03-2022 MG MAMM SCREEN 3D BONNIE CAD Patient: NICOL SMITH Exam Date: 11/03/2022 : 1960 Gender:F Ordering : DR FRIEDA LOCKE . Admission #: [id number] Family : Order #: [id number] CLICK HERE TO VIEW EXAM RADIOLOGY REPORT PROCEDURE: MAMMOGRAM SCREENING 3D BILATERAL CAD COMPARISON: MG MAMM SCREEN 3D BONNIE CAD, 10/31/2021. MG MAMM SCREEN BONNIE W CAD, 10/28/2020. INDICATIONS: Screening mammography Calculator Name NCI Breast Cancer Risk Assessment Tool 5 Year Breast Cancer Risk 1.50% Lifetime Breast Cancer Risk 7.40% Personal Breast Cancer No Personal Ovarian Cancer No Treatments None Family Cancers Grandmother-maternal with uterine cancer at age 50. LOCATION: [facility] BREAST COMPOSITION: Scattered areas fibroglandular density. FINDINGS: DIAGNOSTIC CATEGORY 2--BENIGN FINDING. NO CHANGE FROM COMPARISON. Scattered benign-appearing calcifications are present. Scattered benign-appearing lymph nodes are present. RIGHT BREAST: No significant suspicious finding. LEFT BREAST: No significant suspicious finding. RECOMMENDATIONS: ROUTINE MAMMOGRAM AND CLINICAL EVALUATION IN 12 MONTHS. PLEASE NOTE: A NORMAL MAMMOGRAM DOES NOT EXCLUDE THE POSSIBILITY OF BREAST CANCER. A CLINICALLY SUSPICIOUS PALPABLE LUMP SHOULD BE BIOPSIED. Dictated by: Shawnee Kelly MD on 11/03/2022 at 10:41 Approved by: Shawnee Kelly MD on 11/03/2022 at 11:04 Normal [facility] XR DEXA BONE DENSITYon 11-03 XR DEXA BONE DENSITY EXAMINATION: XR DEX A BONE DENSITY, 11/03/2022 9:27 AM EST HISTORY: Gynecologic examination COMPARISON: DEXA bone densitometry 10/28/2020 TECHNIQUE: Dual-energy X-ray absorptiometry (DEXA) bone density study performed for the axial skeleton. FINDINGS: SPINE ANALYSIS: Average bone mineral density is 1.168 g/cm2. T-score (standard deviation relative to young adult mean): -0.1 . Not previously evaluated. HIP ANALYSIS: Lowest bone mineral density is within the right femoral neck, 1.070 g/cm2. T-score (standard deviation relative to young adult mean): 0.2 . -2.8% change since prior study. IMPRESSION: [employer] Classification: Normal - Low Fracture Risk Electronically authenticated by: ARIELA SCHWAB Date: 2022-11-03 11:11 Normal [facility] Comprehensive Metabolic Pane yuli 10-30-2022 Urea nitrogen [Mass/Vol] 20 mg/dL [employer] Other Comprehensive Metabolic Panel [employer] Other Comprehensive Metabolic Panel >60 [employer] Other Comprehensive Metabolic Panel 4.2 [employer] Other Albumin [Mass/Vol] 3.7 g/dL Normal 3.4-5.0 [employer] Other Comment on above: Performed By: #### T SH, CMP, LIPID ####[facility] [address] [place] [id number]. Darrick Cao Albumin/Globulin [Mass ratio] 0.9 {ratio} Normal [employer] Other Comment on above: Performed By: #### T SH, CMP, LIPID ####[facility] [address] [place] [address]Dr. Darrick Cao ALP [Catalytic activity/Vol] 112 U/L Normal 46-116 [employer] Other Comment on above: Performed By: #### T SH, CMP, LIPID ####[facility] [address] [place], [place] [address]Dr. Darrick Cao ALT [Catalytic activity/Vol] 34 U/L Normal 14-59 [employer] Other Comment on above: Performed By: #### T SH, CMP, LIPID ####[facility] [address] [place] [id number]. Darrick Cao AST [Catalytic activity/Vol] 17 U/L Normal 15-37 [employer] Other Comment on above: Performed By: #### T SH, CMP, LIPID ####[facility] [address] [place] [id number]. Darrick Cao Bilirubin [Mass/Vol] 0.4 mg/dL Normal 0.2-1.0 [facility] [employer] Other Comment on above: Performed By: #### T SH, CMP, LIPID ####[facility] [address] [place], [place] [address]Dr. Darrick Cao Calcium [Mass/Vol] 9.2 mg/dL Normal 8.5-10.1 [employer] Other Comment on above: Performed By: #### T SH, CMP, LIPID ####[facility] [address] [place] [address]Dr. Darrick Cao Chloride [Moles/Vol] 105 mmol/L Normal 98-107 [facility] [employer] ([facility]) Other Comment on above: Performed By: #### T SH, CMP, LIPID ####[facility] [address] [place] [address]Dr. Darrick Cao CO2 [Moles/Vol] 27.0 mmol/L Normal 21.0-32.0 [facility] [employer] ([facility]) Other Comment on above: Performed By: #### T SH, CMP, LIPID ####[facility] [address] [place] [address]Dr. Darrick Cao Creatinine [Mass/Vol] 0.86 mg/dL Normal 0.55-1.02 [facility] [employer] ([facility]) Other Comment on above: Performed By: #### T SH, CMP, LIPID ####[facility] [address] [place] [address]Dr. Darrick Cao Glucose [Mass/Vol] 114 mg/dL Critically high 74-106 [facility] [employer] ([facility]) Other Comment on above: Performed By: #### T SH, CMP, LIPID ####[facility] [address] [place] [address]Dr. Darrick Cao Potassium [Moles/Vol] 3.9 mmol/L Normal 3.5-5.1 [facility] [employer] ([facility]) Other Comment on above: Performed By: #### T SH, CMP, LIPID ####[facility] [address] [place] [address]Dr. Darrick Cao Protein [Mass/Vol] 7.9 g/dL Normal 6.4-8.2 [facility] [employer] ([facility]) Other Comment on above: Performed By: #### T SH, CMP, LIPID ####[facility] [address] [place], [place] [address]Gp. Adryyakov Cao Sodium [Moles/Vol] 143 mmol/L Normal 136-145 [employer] Other Comment on above: Performed By: #### T SH, CMP, LIPID ####[facility] [address] [place], [place] [address]Gu. Darrick Cao FREE T4on 10-30-2022 Free T4 [Mass/Vol] 0.77 ng/dL Normal 0.76-1.46 [facility] Comment on above: Performed By: #### F T4 ####[facility] [address] [place] [id number]. Darrick Cao LIPID PROFILEon 10-30-2022 CHOL-HDL RATIO NORM SEE BELOW Normal [facility] Comment on above: Result Comment: 3.3 - 4.4 LOW RISK 4.4 - 7.1 AVERAGE RISK 7.1 - 11.0 MODERATE RISK >11.0 HIGH RISK Performed By: #### T SH, CMP, LIPID ####[facility] [address] [place] [address]Dr. Darrick Cao Cholesterol in LDL [Mass/Vol] 84.6 mg/dL Normal [facility] Comment on above: Performed By: #### T SH, CMP, LIPID ####[facility] [address] [place], [place] [address]Rj. Darrick Cao HDL NORMAL > or = 60 mg/dl - LO W CARDIOVASCULAR RISK <40 mg/dl - HIGH CARDIOVASCULAR RISK Normal [facility] Comment on above: Performed By: #### T SH, CMP, LIPID ####[facility] [address] [place], [place] [address]Bw. Darrick Cao LDL CALC NORMAL SEE BELOW Normal [facility] Comment on above: Result Comment: <100 mg/dl OPTIMAL 100 - 129 mg/dl NEAR OR ABOVE OPTIMAL 130 - 159 mg/dl BORDERLINE HIGH 160 - 189 mg/dl HIGH >190 mg/dl VERY HIGH Performed By: #### T SH, CMP, LIPID ####[facility] [address] [place] [id number]. Darrick Cao Triglyceride [Mass/Vol] 222 mg/dL Critically high <=150 [facility] Comment on above: Performed By: #### T SH, CMP, LIPID ####[facility] [address] [place], [place] [address]Vb. Darrick Cao VLDL CALC 44.4 mg/dL Normal [facility] Comment on above: Performed By: #### T SH, CMP, LIPID ####[facility] [address] [place], [place] [address]Tg. Darrick Cao Lipid Panelon 10-30-2022 Cholesterol in LDL Elph Qn 84.6 [employer] [facility] IDRI ([facility]) Other Lipid Panel 222 [employer] Other Lipid Panel 44.4 [employer] Other Cholesterol [Mass/Vol] 185 mg/dL Normal <=200 [employer] Other Comment on above: Performed By: #### T SH, CMP, LIPID ####[facility] [address] [place], [place] [address]Wv. Darrick Cao Cholesterol in HDL [Mass/Vol] 56 mg/dL Normal 40-60 [employer] Other Comment on above: Performed By: #### T SH, CMP, LIPID ####[facility] [address] [place], [place] [address]Fm. Darrick Cao Cholesterol.total/Cho lesterol in HDL [Mass ratio] 3.3 {ratio} Normal [facility] [employer] ([facility]) Other Comment on above: Performed By: #### T SH, CMP, LIPID ####[facility] [address] [place], [place] [address]GpMiguel Cao PROF 14(COMP METB)on 023 Anion gap [Moles/Vol] 14.9 mmol/L Normal [facility] Comment on above: Performed By: #### T SH, CMP, LIPID ####[facility] [address] [place] [address]DrMiguel Cao EGFR-AF TANZANIAN >60 Normal >=60 [facility] Comment on above: Performed By: #### T SH, CMP, LIPID ####[facility] [address] [place] [address]Dr. Darrick Cao EGFR-NON AF TANZANIAN >60 Normal >=60 [facility] Comment on above: Performed By: #### T SH, CMP, LIPID ####[facility] [address] [place] [address]Dr. Darrick Cao Globulin (S) [Mass/Vol] 4.2 g/dL Normal [facility] Comment on above: Performed By: #### T SH, CMP, LIPID ####[facility] [address] [place] [address]Dr. Darrick Cao Urea nitrogen [Mass/Vol] 20.0 mg/dL Critically high 7.0-18.0 [facility] Comment on above: Performed By: #### T SH, CMP, LIPID ####[facility] [address] [place] [address]DrMiguel Cao Urea nitrogen/Creatinine [Mass ratio] 23.3 mg/mg Normal [facility] Comment on above: Performed By: #### T SH, CMP, LIPID ####[facility] [address] [place] [address]Dr. Darrick Cao TSHon 10-30-2022 TSH 6.415 uIU/mL Critically high 0.358-3.74 0 [facility] Comment on above: Performed By: #### T SH, CMP, LIPID ####[facility] [address] [place] [address]Dr. Darrick Cao Thyroid Stim Hormone w/Rflxo n 10-30-2022 Thyroid Stim Hormone w/Rflx 6.415 [employer] Other VITAMIN B12on 10-30-2022 Cobalamin (Vitamin B12) [Mass/Vol] 664.0 pg/mL Normal 193.0-986. 0 [facility] Comment on above: Performed By: #### V ITB12 #### [facility] [address] [address] [address] Darrick Cao Vitamin B12on 10-30-2022 Cobalamin (Vitamin B12) [Mass/Vol] 664 pg/mL [employer] Other Automated erythrocytes count in urine sediment (number/area)Ordered By: Waqas Pierce on 10-23-2022 RBC Auto (Urine sed) [#/Area] 0-1 [HPF] 0-4 [facility] Automated leukocytes count i n urine sediment (number/area)Ordered By: Waqas Pierce on 10-23-2022 WBC Auto (Urine sed) [#/Area] 10-19 [HPF] 0-4 [facility] Automated urine color determ inationOrdered By: Waqas Pierce on 10-23-2022 Color (U) Yellow Normal Yellow [facility] Comment on above: Order Comment: Name Collection Type:: Collection Method Unknown Performed By: #### C UU, ADDONUAPLUS #### [facility] [address] [place] [id number] [place] Bilirubin Test strip Ql (U)O rdered By: Waqas Pierce on 10-23-2022 Bilirubin Ql (U) Negative Negative [facility] Dipstick and Microscopicon 0 10-23-2022 Appearance (U) Clear Normal Clear [facility] Comment on above: Order Comment: Name Collection Type:: Collection Method Unknown Performed By: #### C UU, ADDONUAPLUS #### [facility] [address] [place] [address] [place] Bacteria,Urine None Seen Normal None Seen [facility] Comment on above: Order Comment: Name Collection Type:: Collection Method Unknown Performed By: #### C UU, ADDONUAPLUS #### [facility] [address] [place] [address] [place] Bilirubin,Urine Negative Normal Negative [facility] Comment on above: Order Comment: Name Collection Type:: Collection Method Unknown Performed By: #### C UU, ADDONUAPLUS #### [facility] [address] [place] [address] [place] Glucose Ql (U) Normal Normal Normal [facility] Comment on above: Order Comment: Name Collection Type:: Collection Method Unknown Performed By: #### C UU, ADDONUAPLUS #### [address] Hyaline Casts,Urine 0-8 Normal 0-8 [facility] Comment on above: Order Comment: Name Collection Type:: Collection Method Unknown Result Comment: PERF ORMED BY: [place] [address] PATHOLOGIST SECOND HELPER SUAD ARREAGA M.D. Performed By: #### C UU, ADDONUAPLUS #### [address] Ketones Ql (U) Negative Normal Negative [facility] Comment on above: Order Comment: Name Collection Type:: Collection Method Unknown Performed By: #### C UU, ADDONUAPLUS #### [address] Leukocyte esterase Test strip Ql (U) 3+ High Negative [facility] Comment on above: Order Comment: Name Collection Type:: Collection Method Unknown Performed By: #### C UU, ADDONUAPLUS #### [address] Nitrite,Urine Negative Normal Negative [facility] Comment on above: Order Comment: Name Collection Type:: Collection Method Unknown Performed By: #### C UU, ADDONUAPLUS #### [place] [address] [place] Occult Blood,Urine Negative Normal Negative [facility] Comment on above: Order Comment: Name Collection Type:: Collection Method Unknown Result Comment: PERF ORMED BY: [place] [address] PATHOLOGIST SECOND HELPER SUAD ARREAGA M.D. Performed By: #### C UU, ADDONUAPLUS #### [place] [address] [place] Protein,Urine Negative Normal Negative [facility] Comment on above: Order Comment: Name Collection Type:: Collection Method Unknown Performed By: #### C UU, ADDONUAPLUS #### [address] [address] [place] RBC LM.HPF (Urine sed) [#/Area] 0 /[HPF] Normal 0-4 [facility] Comment on above: Order Comment: Name Collection Type:: Collection Method Unknown Performed By: #### C UU, ADDONUAPLUS #### [facility] [address] [place] [address] Specificy [place],Urine 1.016 Normal 1.001-1.03 0 [facility] Comment on above: Order Comment: Name Collection Type:: Collection Method Unknown Performed By: #### C UU, ADDONUAPLUS #### [facility] [address] [place] [address] Squamous Epithelial Cell,Urine 5-9 High 0-2 [facility] Comment on above: Order Comment: Name Collection Type:: Collection Method Unknown Performed By: #### C UU, ADDONUAPLUS #### [facility] [address] [place] [address] Urobilinogen,Urine Normal Normal Normal [facility] Comment on above: Order Comment: Name Collection Type:: Collection Method Unknown Performed By: #### C UU, ADDONUAPLUS #### [facility] [address] [place] [address] WBC,Urine 10-19 High 0-4 [facility] Comment on above: Order Comment: Name Collection Type:: Collection Method Unknown Performed By: #### C UU, ADDONUAPLUS #### [facility] [address] [place] [address] Ketones Auto test strip (U) [Mass/Vol]Ordered By: Waqas Pierce on 10-23-2022 Ketones (U) [Mass/Vol] Negative Negative [facility] Laboratory - UrinalysisOrder ed By: Waqas Pierce on 10-23-2022 Hyaline casts LM Ql (Urine sed) 0-8 [LPF] 0-8 [facility] Nitrite Test strip Ql (U)Ord ered By: Waqas Pierce on 10-23-2022 Nitrite Ql (U) Negative Negative [facility] Protein Auto test strip (U) [Mass/Vol]Ordered By: Waqas Pierce on 10-23-2022 Protein (U) [Mass/Vol] Negative Negative [facility] Specific gravity Auto test s trip (U) [Rel density]Ordered By: Waqas Pierce on 10-23-2022 Specific gravity (U) [Rel density] 1.016 1.001-1.03 0 [facility] Squamous epithelial cells de tection in urine sediment by light microscopyOrdered By: Waqas Pierce on 10-23-2022 Epithelial cells.squamous LM Ql (Urine sed) 5-9 [HPF] 0-2 [facility] Urine Cultureon 10-23-2022 Bacteria identified Cx Nom (U) >100,000 colonies/ml mixed bacterial skin contaminants 2 Days PERFORMED BY: [place] [address] PATHOLOGIST SECOND HELPER SUAD ARREAGA M.D. [facility] Comment on above: Performed By: #### C UU, ADDONUAPLUS #### [address] Bacteria identified Cx Nom (U) [employer] Other Urine bacteria detection by automated methodOrdered By: Waqas Pierce on 10-23-2022 Bacteria Auto Ql (U) None seen None Seen [facility] Urine clarity by refractomet ry automatedOrdered By: Waqas Pierce on 10-23-2022 Clarity Refractometry automated (U) Clear Clear [facility] Urine glucose measurement by automated test strip (mass/volume)Ordered By: Waqas Pierce on 10-23-2022 Glucose Auto test strip (U) [Mass/Vol] Normal mg/dL Normal [facility] Urine hemoglobin detection b y automated test stripOrdered By: Waqas Pierce on 10-23-2022 Hemoglobin Auto test strip Ql (U) Negative Negative [facility] Urine leukocyte esterase det ection by automated test stripOrdered By: Waqas Pierce on 10-23-2022 Leukocyte esterase Auto test strip Ql (U) 3+ Negative [facility] Urine pH measurement by auto mated test stripOrdered By: Waqas Pierce on 10-23-2022 pH (U) 6.0 [pH] Normal 5.0-9.0 [facility] Comment on above: Order Comment: Name Collection Type:: Collection Method Unknown Performed By: #### C UU, FE #### [facility] [address] Urobilinogen Auto test strip (U) [Mass/Vol]Ordered By: Waqas Pierce on 10-23-2022 Urobilinogen (U) [Mass/Vol] Normal mg/dL Normal [facility] A1C HEMOGLOBINon 10-13-2022 HbA1c (Bld) [Mass fraction] 5.9 % [employer] [facility] IDRI ([facility]) Other HbA1c (Bld) [Mass fraction]o n 10-13-2022 A1C HEMOGLOBIN [facility] IDRI ([facility]) Other XR FOOT LT MIN 3 VIEWSon XR FOOT LT MIN 3 VIEWS EXAM: XR FOOT LT MIN 3 VIEWS HISTORY: Pain in left foot. COMPARISON: X-ray 08/18/2022. TECHNIQUE: 4 views of the left foot. FINDINGS: Bones are osteopenic. Patient status post arthrodesis at the first MTP joint. 2 screws extend across the posterior subtalar joint with solid fusion across the joint. A third screw is seen extending across the medial cuneiform-navicular joint and talonavicular joint. Hardware appears intact. Dorsal spur at the hindfoot is noted. No acute fracture is identified. No radiopaque foreign body seen. Plantar calcaneal spur is seen. IMPRESSION: 1. Osteopenia. No acute fracture. 2. Similar postsurgical changes of the mid/hindfoot, as above. Hardware is intact. 3. Plantar calcaneal spur. Electronically authenticated by: ALEX RYAN Date: 2022-09-20 16:40 Normal [facility] Office Visiton 09-06-2022 Follow-up visit [id number] Nicol Smith 1960 F Date Provider Department Center 09/06/2022 KIMBERLY BAKER [facility] Family History Problem Relation Age of Onset Diabetes Father Heart failure Father Diabetes Paternal Grandmother Diabetes Paternal Grandfather Family Status - Relation Status Age at Father Paternal Grandmother Paternal Grandfather Level of Service:35403 ME OFFICE/OUTPATIENT ESTABLISHED LOW MDM 20-29 MIN Normal [facility] XR LSPINE 2_3 VIEWSon 2021 XR LSPINE 2_3 VIEWS EXAMINATION: XR LSPI NE 2_3 VIEWS HISTORY: Low back pain COMPARISON: 09/26/2019 FINDINGS: BONES: Mild dextrocurvature. Moderate to severe spondylosis and facet osteoarthropathy DISC SPACES: Multilevel disc space narrowing most significant at L5-S1 PARASPINOUS: Negative. No paraspinous abnormality is seen. OTHER: Severe right hip osteoarthropathy with [id number] articulation. Left hip arthroplasty IMPRESSION: Moderate to severe degenerative changes Electronically authenticated by: SHAWNEE KELLY Date: 2022-08-20 11:47 Normal [facility] PAP ACOG PANEL 2: 30 to 65on 06-13-2022 . . Normal [facility] Comment on above: Result Comment: Perf ormed at: WB Performed By: #### [id number] ####[facility] [address] [place] [address]DrMiguel Cao Age Gdln ACOG Testing 30-65 Normal [facility] Comment on above: Performed By: #### 4 [id number] ####[facility] [address] [place] [address]Dr. Darrick Cao DIAGNOSIS: Comment Normal [facility] Comment on above: Result Comment: NEGA TIVE FOR INTRAEPITHELIAL LESION OR MALIGNANCY. THIS SPECIMEN WAS RESCREENED PART OF OUR PROSTHETIC AIDE PROGRAM. Performed at: WB Performed By: #### 4 [id number] ####[facility] [address] [place] [address]DrMiguel Cao HPV Aptima Negative Normal Negative [facility] Comment on above: Result Comment: This nucleic acid amplification test detects fourteen high-risk HPV types (16,18,31,33,35,39,45,51,52,56,58,59,66,68) without differentiation. Performed at: =G Performed By: #### [id number] ####[facility] [address] [place] [address]DrMiguel Cao Methodology: Comment Normal [facility] Comment on above: Result Comment: This liquid based ThinPrep(R) pap test was screened with the use of an image guided system. Performed at: WB Performed By: #### [id number] ####[facility] [address] [place] [address]Dr. Darrick Cao Note: Comment Normal [facility] Comment on above: Result Comment: The Pap smear is a screening test designed to aid in the detection of premalignant and malignant conditions of the uterine cervix. It is not a diagnostic procedure and should not be used as the sole means of detecting cervical cancer. Both false-positive and false-negative reports do occur. . Performed at: WB Performed By: #### [id number] ####[facility] [address] [place] [address]Dr. Darrick Cao Performed by: Comment Normal [facility] Comment on above: Result Comment: Solange Ann, Cemetery Worker (ASCP) Performed at: WB Performed By: #### [id number] ####[facility] [address] [place], [place] [address]Dr. Darrick Cao QC reviewed by: Comment Normal [facility] Comment on above: Result Comment: Navi Rush, Supervisory Cemetery Worker (ASCP) Performed at: WB Performed By: #### 4 [id number] ####[facility] Gad[address] [place], [place] [address]Dr. Darrick Cao Specimen adequacy: Comment Normal [facility] Comment on above: Result Comment: Sati sfactory for evaluation. Endocervical and/or squamous metaplastic cells (endocervical component) are present. Performed at: WB Performed By: #### 4 [id number] ####[facility] [address] [place], [place] [address]Dr. Darrick Cao US PELVIS AND TRANSVAGon US PELVIS AND TRANSVAG EXAMINATION: US PELVIS AND TRANSVAG HISTORY: Pelvic and perineal pain COMPARISON: No relevant comparison available. TECHNIQUE: Transabdominal and transvaginal sonographic examination. FINDINGS: UTERUS: Normal size and appearance. Uterus size: 6.4 x 2.7 x 3.6 cm ENDOMETRIUM: Normal homogeneous appearance. Endometrial thickness: 3 mm RIGHT OVARY: Normal size and appearance. Blood flow present within ovary on color Doppler. Ovary size: 1.9 x 0.9 x 1.5 cm LEFT OVARY: Normal size and appearance. Blood flow present within ovary on color Doppler. Ovary size: 2.1 x 0.9 x 2.1 cm CUL-DE-SAC: Unremarkable. No significant free fluid. BLADDER: Unremarkable. OTHER: None. IMPRESSION: 1. Examination slightly limited by patient body habitus. 2. No abnormal or suspicious findings. Electronically authenticated by: ARIELA SCHWAB Date: 2022-06-13 14:50 Normal [facility] ACID FAST SMEAR AND CXon Acid Fast Culture Negative Normal [facility] Comment on above: Result Comment: No a liliya fast bacilli isolated after 6 weeks. Performed By: #### A FB ####[facility] [address] [place], [place] [address]Dr. Darrick Cao Acid Fast Smear Negative Normal [facility] Comment on above: Performed By: #### A FB ####[facility] [address] [place], [place] [address]Dr. Darrick Cao [employer] Specimen Processing Tissue Grinding Normal [facility] Comment on above: Performed By: #### A FB ####[facility] [address] [place] [address]Dr. Darrick Cao FUNGAL CULTUREon 05-23-2022 Fungus (Mycology) Culture Final report Normal [facility] Comment on above: Performed By: #### C XFUN ####[facility] [address] [place] [id number]. Darrick Cao Fungus Stain Final report Normal [facility] Comment on above: Performed By: #### C XFUN ####[facility] [address] [place] [id number]. Darrick Cao Result 1 Comment Normal [facility] Comment on above: Result Comment: MAYE/ Calcofluor preparation: no fungus observed. Performed By: #### C XFUN ####[facility] [address] [place], [place] [address]Dr. Darrick Cao Result Comment: No y east or mold isolated after 4 weeks. WOUND CULTUREon 04-28-2022 Bacteria identified Aer cx Nom (Unsp spec) Final report Normal [facility] Comment on above: Performed By: #### C XWND #### [facility] [address] [address] [address] Darrick Cao Result 1 Comment Normal [facility] Comment on above: Result Comment: No g rowth in 36 - 48 hours. Performed By: #### C XWND #### [facility] [address] [address] [address] Darrick Cao CULTURE WOUNDon 04-26-2022 CULTURE WOUND Culture Observations : NO GROWTH OF ANAEROBES AT 72 HOURS. Isolate 1 Enterococcus faecalis Moderate growth of ORGANISM 1 Enterococcus faecalis ANTIBIOTIC M.I.C RX STATUS Beta-Lactamase Neg NEG F Benzylpenicillin 1 S F Ampicillin <=2 S F Gentamicin High Level (synergy) SYN-R R F Streptomycin High Level (synergy) SYN-S S F Quinupristin/Dalfopristin 4 R F Linezolid 1 S F Vancomycin 1 S F Normal [facility] Comment on above: Performed By: #### W OUNDCX ####[facility] [address] [place] [address]Dr. Darrick Cao CBC AUTO DIFFon 04-25-2022 BASO # 0.0 103/ul Normal 0.0-0.1 [facility] Comment on above: Performed By: #### C XWND #### [facility] [address] [address] [address] Darrick Cao Basophils/100 WBC (Bld) 0.5 % Normal 0.2-2.0 [facility] Comment on above: Performed By: #### C XWND #### [facility] [address] [place] [address] Dr. Darrick Cao EO # 0.1 103/ul Normal 0.0-0.7 [facility] Comment on above: Performed By: #### C XWND #### [facility] [address] [place] [address] Dr. Darrick Coa Eosinophils/100 WBC (Bld) 1.1 % Normal 0.9-7.0 [facility] Comment on above: Performed By: #### C XWND #### [facility] [address] [place] [address] Dr. Darrick Cao Erythrocyte distribution width (RBC) [Ratio] 15.8 % Critically high 11.0-15.0 [facility] Comment on above: Performed By: #### C XWND #### [facility] [address] [place] [address] Dr. Darrick Cao Hematocrit (Bld) [Volume fraction] 31.7 % Critically low 36.0-48.0 [facility] Comment on above: Performed By: #### C XWND #### [facility] [address] [place] [address] Dr. Darrick Cao Hemoglobin (Bld) [Mass/Vol] 10.1 g/dL Critically low 12.0-16.0 [facility] Comment on above: Performed By: #### C XWND #### [facility] [address] [place] [address] Dr. Darrick Cao IG # 0.02 10e3/ul Normal 0.00-0.03 [facility] Comment on above: Performed By: #### C XWND #### [facility] [address] [place] [address] Dr. Darrick Cao IG % 0.3 % Normal 0.0-0.5 [facility] Comment on above: Performed By: #### C XWND #### [facility] [address] [place] [address] Dr. Darrick Cao LYMPH # 1.8 103/ul Normal 1.2-3.8 [facility] Comment on above: Performed By: #### C XWND #### [facility] [address] [place] [address] Dr. Darrick Cao Lymphocytes/100 WBC (Bld) 24.3 % Normal 20.5-60.0 [facility] Comment on above: Performed By: #### C XWND #### [facility] [address] [place] [address] Dr. Darrick Cao MANUAL DIFF REQ NO Normal [facility] Comment on above: Performed By: #### C XWND #### [facility] [address] [address] [address] Darrick Cao MCH (RBC) [Entitic mass] 28.0 pg Normal 26.7-34.0 [facility] Comment on above: Performed By: #### C XWND #### [facility] [address] [place] [address] Dr. Darrick Cao MCHC (RBC) [Mass/Vol] 31.9 g/dL Normal 29.9-35.2 [facility] Comment on above: Performed By: #### C XWND #### [facility] [address] [place] [address] Dr. Darrick Cao MCV (RBC) [Entitic vol] 87.8 fL Normal 81.0-99.0 [facility] Comment on above: Performed By: #### C XWND #### [facility] [address] [place] [address] Dr. Darrick Cao MONO # 0.5 103/ul Normal 0.3-0.8 [facility] Comment on above: Performed By: #### C XWND #### [facility] [address] [place] [address] Dr. Darrick Cao Monocytes/100 WBC (Bld) 7.2 % Normal 1.7-12.0 [facility] Comment on above: Performed By: #### C XWND #### [facility] [address] [place] [address] Dr. Darrick Cao NEUT # 5.0 103/ul Normal 1.4-6.5 [facility] Comment on above: Performed By: #### C XWND #### [facility] [address] [place] [address] Dr. Darrick Cao Neutrophils/100 WBC (Bld) 66.6 % Normal 43.0-75.0 [facility] Comment on above: Performed By: #### C XWND #### [facility] [address] [place] [address] Dr. Darrick Cao Platelet mean volume (Bld) [Entitic vol] 9.6 fL Normal 9.5-13.5 [facility] Comment on above: Performed By: #### C XWND #### [facility] [address] [address] [address] Darrick Cao PLT 295 103/ul Normal 150-450 [facility] Comment on above: Performed By: #### C XWND #### [facility] [address] [address] [address] Darrick Cao RBC 3.61 106/ul Critically low 4.20-5.40 [facility] Comment on above: Performed By: #### C XWND #### [facility] [address] [address] [address] Darrick Cao WBC 7.5 103/ul Normal 4.0-11.0 [facility] Comment on above: Performed By: #### C XWND #### [facility] [address] [address] [address] Darrick Cao ER URINE PROFILEon 2 Bilirubin Ql (U) Negative Normal NEGATIVE [facility] Comment on above: Performed By: #### U MICRO, ERUR ####[facility] [address] [place] [address]DrMiguel Cao Clarity (U) CLEAR Normal CLEAR [facility] Comment on above: Performed By: #### U MICRO, ERUR ####[facility] [address] [place] [address]Dr. Darrick Cao Color (U) LT. YELLOW Normal YELLOW [facility] Comment on above: Performed By: #### U MICRO, ERUR ####[facility] [address] [place] [address]DrMiguel Cao ERUAHD A micrscopic examina tion will be performed if indicated. Normal [facility] Comment on above: Performed By: #### U MICRO, ERUR ####[facility] [address] [place] [address]Dr. Darrick Cao Glucose Ql (U) Negative Normal NEGATIVE [facility] Comment on above: Performed By: #### U MICRO, ERUR ####[facility] [address] [place] [address]Dr. Darrick Cao Hemoglobin Ql (U) SMALL Abnormal NEGATIVE [facility] Comment on above: Performed By: #### U MICRO, ERUR ####[facility] [address] [place], [place] [address]Dr. Darrick Cao Ketones Ql (U) Negative Normal NEGATIVE [facility] Comment on above: Performed By: #### U MICRO, ERUR ####[facility] [address] [place], [place] [address]Dr. Darrick Cao LEUKOCYTES Negative Normal NEGATIVE [facility] Comment on above: Performed By: #### U MICRO, ERUR ####[facility] [address] [place], [place] [address]Dr. Darrick Cao Nitrite Ql (U) Negative Normal NEGATIVE [facility] Comment on above: Performed By: #### U MICRO, ERUR ####[facility] [address] [place], [place] [address]Dr. Darrick Cao pH (U) 6.0 [pH] Normal 5-9 [facility] Comment on above: Performed By: #### U MICRO, ERUR ####[facility] [address] [place], [place] [address]Dr. Adryyakov Cao SPEC GRAVITY 1.020 Normal 1.005-<=1. 025 [facility] Comment on above: Performed By: #### U MICRO, ERUR ####[facility] [address] [place], [place] [address]Dr. Darrick Cao UA PROTEIN Negative Normal NEGATIVE/ TRACE [facility] Comment on above: Performed By: #### U MICRO, ERUR ####[facility] [address] [place], [place] [address]Dr. Darrick Cao UR MICRO IND INDICATED Normal [facility] Comment on above: Performed By: #### U MICRO, ERUR ####[facility] [address] [place], [place] [address]Dr. Darrick Cao Urobilinogen Qn (U) 0.2 {Larissa'U}/dL Normal 0.2 - 1. 0 [facility] Comment on above: Performed By: #### U MICRO, ERUR ####[facility] [address] [place] [address]Dr. Darrick Cao POINT OF CARE GLUCOSEon 04-01 Glucose [Mass/Vol] 118 mg/dL Critically high 74-106 T [facility] Comment on above: Performed By: #### P OCGLUC ####[facility] [address] [place] [address]Dr. Darrick Cao PROF 14(COMP METB)on 022 Albumin [Mass/Vol] 2.9 g/dL Critically low 3.4-5.[address] [facility] Comment on above: Performed By: #### P OCGLUC #### [facility] [address] [address] [address] Darrick Cao Albumin/Globulin [Mass ratio] 0.8 {ratio} Normal [facility] Comment on above: Performed By: #### P OCGLUC #### [facility] [address] [address] [address] Darrick Cao ALP [Catalytic activity/Vol] 113 U/L Normal 46-116 [facility] Comment on above: Performed By: #### P OCGLUC #### [facility] [address] [address] [address] Darrick Cao ALT [Catalytic activity/Vol] 56 U/L Normal 14-59 [facility] Comment on above: Performed By: #### P OCGLUC #### [facility] [address] [address] [address] Darrick Cao Anion gap [Moles/Vol] 8.8 mmol/L Normal [facility] Comment on above: Performed By: #### P OCGLUC #### [facility] [address] [address] [address] Darrick Cao AST [Catalytic activity/Vol] 30 U/L Normal 15-37 [facility] Comment on above: Performed By: #### P OCGLUC #### [facility] [address] [address] [address] Darrick Cao Bilirubin [Mass/Vol] 0.3 mg/dL Normal 0.2-1.0 [facility] Comment on above: Performed By: #### P OCGLUC #### [facility] [address] [address] [address] Darrick Cao Calcium [Mass/Vol] 8.6 mg/dL Normal 8.5-10.1 [facility] Comment on above: Performed By: #### P OCGLUC #### [facility] [address] [address] [address] Darrick Cao Chloride [Moles/Vol] 105 mmol/L Normal 98-107 [facility] Comment on above: Performed By: #### P OCGLUC #### [facility] [address] [address] [address] Darrick Cao CO2 [Moles/Vol] 30.4 mmol/L Normal 21.0-32.0 [facility] Comment on above: Performed By: #### P OCGLUC #### [facility] [address] [address] [address] Darrick Cao Creatinine [Mass/Vol] 0.82 mg/dL Normal 0.55-1.02 [facility] Comment on above: Performed By: #### P OCGLUC #### [facility] [address] [address] [address] Darrick Cao EGFR-AF TANZANIAN >60 Normal >=60 [facility] Comment on above: Performed By: #### P OCGLUC #### [facility] [address] [address] [address] Darrick Cao EGFR-NON AF TANZANIAN >60 Normal >=60 [facility] Comment on above: Performed By: #### P OCGLUC #### [facility] [address] [address] [address] Darrick Cao Globulin (S) [Mass/Vol] 3.6 g/dL Normal [facility] Comment on above: Performed By: #### P OCGLUC #### [facility] [address] [address] [address] Darrick Cao Glucose [Mass/Vol] 103 mg/dL Normal 74-106 [facility] Comment on above: Performed By: #### P OCGLUC #### [facility] [address] [address] [address] Darrick Cao Potassium [Moles/Vol] 4.2 mmol/L Normal 3.5-5.1 [facility] Comment on above: Performed By: #### P OCGLUC #### [facility] [address] [address] [address] Darrick Cao Protein [Mass/Vol] 6.5 g/dL Normal 6.4-8.2 [facility] Comment on above: Performed By: #### P OCGLUC #### [facility] [address] [address] [address] Darrick Cao Sodium [Moles/Vol] 140 mmol/L Normal 136-145 [facility] Comment on above: Performed By: #### P OCGLUC #### [facility] [address] [address] [address] Darrick Cao Urea nitrogen [Mass/Vol] 11.0 mg/dL Normal 7.0-18.0 [facility] Comment on above: Performed By: #### P OCGLUC #### [facility] [address] [address] [address] Darrick Cao Urea nitrogen/Creatinine [Mass ratio] 13.4 mg/mg Normal [facility] Comment on above: Performed By: #### P OCGLUC #### [facility] [address] [address] [address] Darrick Cao URINE MICROSCOPIC ONLYon BACTERIA NONE SEEN Normal NONE SEEN [facility] Comment on above: Performed By: #### U MICRO, ERUR ####[facility] [address] [place] [id number] Cao Bacteria identified Cx Nom (U) NOT INDICATED Normal [facility] Comment on above: Performed By: #### U MICRO, ERUR ####[facility] [address] [place] [address]Dr. Darrick Cao CAST NONE SEEN Normal NONE SEEN [facility] Comment on above: Performed By: #### U MICRO, ERUR ####[facility] [address] [place] [address]Dr. Darrick Cao Crystals LM Nom (Urine sed) NONE SEEN Normal NONE SEEN [facility] Comment on above: Performed By: #### U MICRO, ERUR ####[facility] [address] [place] [address]Dr. Darrick Cao Epithelial cells LM Ql (Urine sed) RARE Normal NONE SEEN /RARE [facility] Comment on above: Performed By: #### U MICRO, ERUR ####[facility] [address] [place] [id number]. Darrick Cao MUCOUS NONE SEEN Normal NONE SEEN [facility] Comment on above: Performed By: #### U MICRO, ERUR ####[facility] [address] [place] [address]Dr. Darrick Cao RBC 5-10 Abnormal 0-2 [facility] Comment on above: Performed By: #### U MICRO, ERUR ####[facility] [address] [place] [address]Dr. Darrick Cao WBC 0-2 Abnormal NONE SEEN [facility] Comment on above: Performed By: #### U MICRO, ERUR ####[facility] [id number] [place] [address]Dr. Darrick Cao XR CHEST 2 Von 04-25-2022 XR CHEST 2 V EXAM: XR CHEST 2 V HISTORY: COUGH and fever COMPARISON: 11/03/2019 TECHNIQUE: Upright PA and lateral chest x-ray FINDINGS: The heart is not enlarged and the vasculature is not distended. No acute infiltrate, effusion or pneumothorax is identified. Very mild degenerative changes are seen in the spine. A sliding-type hiatal hernia is noted. IMPRESSION: No acute infiltrate or evidence of cardiac decompensation. The overall appearance of the chest is unchanged. Electronically authenticated by: AMY FOWLER Date: 2022-04-25 20:07 Normal [facility] CBC AUTO DIFFon 04-24-2022 BASO # 0.1 103/ul Normal 0.0-0.1 [facility] Comment on above: Performed By: #### P OCGLUC #### [facility] [address] [address] [address] Darrick Cao Basophils/100 WBC (Bld) 0.8 % Normal 0.2-2.0 [facility] Comment on above: Performed By: #### P OCGLUC #### [facility] [address] [place] [address] Dr. Darrick Cao EO # 0.1 103/ul Normal 0.0-0.7 [facility] Comment on above: Performed By: #### P OCGLUC #### [facility] [address] [place] [address] Dr. Darrick Cao Eosinophils/100 WBC (Bld) 1.9 % Normal 0.9-7.0 [facility] Comment on above: Performed By: #### P OCGLUC #### [facility] [address] [place] [address] Dr. Darrick Cao Erythrocyte distribution width (RBC) [Ratio] 15.6 % Critically high 11.0-15.0 [facility] Comment on above: Performed By: #### P OCGLUC #### [facility] [address] [place] [address] Dr. Darrick Cao Hematocrit (Bld) [Volume fraction] 35.4 % Critically low 36.0-48.0 [facility] Comment on above: Performed By: #### P OCGLUC #### [facility] [address] [place] [address] Dr. Darrick Cao Hemoglobin (Bld) [Mass/Vol] 11.4 g/dL Critically low 12.0-16.0 [facility] Comment on above: Performed By: #### P OCGLUC #### [facility] [address] [place] [address] Dr. Darrick Cao IG # 0.02 10e3/ul Normal 0.00-0.03 [facility] Comment on above: Performed By: #### P OCGLUC #### [facility] [address] [place] [address] Dr. Darrick Cao IG % 0.3 % Normal 0.0-0.5 [facility] Comment on above: Performed By: #### P OCGLUC #### [facility] [address] [address] [address] Darrick Cao LYMPH # 1.9 103/ul Normal 1.2-3.8 [facility] Comment on above: Performed By: #### P OCGLUC #### [facility] [address] [place] [address] Dr. Darrick Cao Lymphocytes/100 WBC (Bld) 30.2 % Normal 20.5-60.0 [facility] Comment on above: Performed By: #### P OCGLUC #### [facility] [address] [place] [address] Dr. Darrick Cao MANUAL DIFF REQ NO Normal [facility] Comment on above: Performed By: #### P OCGLUC #### [facility] [address] [place] [address] Dr. Darrick Cao MCH (RBC) [Entitic mass] 27.9 pg Normal 26.7-34.0 [facility] Comment on above: Performed By: #### P OCGLUC #### [facility] [address] [place] [address] Dr. Darrick Cao MCHC (RBC) [Mass/Vol] 32.2 g/dL Normal 29.9-35.2 [facility] Comment on above: Performed By: #### P OCGLUC #### [facility] [address] [place] [address] Dr. Darrick Cao MCV (RBC) [Entitic vol] 86.6 fL Normal 81.0-99.0 [facility] Comment on above: Performed By: #### P OCGLUC #### [facility] [address] [place] [address] Dr. Darrick Cao MONO # 0.6 103/ul Normal 0.3-0.8 [facility] Comment on above: Performed By: #### P OCGLUC #### [facility] [address] [place] [address] Dr. Darrick Cao Monocytes/100 WBC (Bld) 9.0 % Normal 1.7-12.0 [facility] Comment on above: Performed By: #### P OCGLUC #### [facility] [address] [place], [place] [id number] Dr. Darrick Cao NEUT # 3.7 103/ul Normal 1.4-6.5 [facility] Comment on above: Performed By: #### P OCGLUC #### [facility] [address] [place] [address] Dr. Darrick Cao Neutrophils/100 WBC (Bld) 57.8 % Normal 43.0-75.0 [facility] Comment on above: Performed By: #### P OCGLUC #### [facility] [address] [place] [address] Dr. Darrick Cao Platelet mean volume (Bld) [Entitic vol] 9.5 fL Normal 9.5-13.5 [facility] Comment on above: Performed By: #### P OCGLUC #### [facility] [address] [place] [address] Dr. Darrick aCo PLT 256 103/ul Normal 150-450 [facility] Comment on above: Performed By: #### P OCGLUC #### [facility] [address] [place] [address] Dr. Darrick Cao RBC 4.09 106/ul Critically low 4.20-5.40 [facility] [place] [facility] Comment on above: Performed By: #### P OCGLUC #### [facility] [address] [place] [address] Dr. Darrick Cao WBC 6.3 103/ul Normal 4.0-11.0 [facility] Comment on above: Performed By: #### P OCGLUC #### [facility] [address] [place] [address] Dr. Darrick Cao GRAM STAINon 04-24-2022 COMMENTS NO ORGANISMS OBSERVED Normal [facility] Comment on above: Performed By: #### C XWND #### [facility] [address] [place] [address] Dr. Darrick Cao DIPHTHEROIDS Normal [facility] Comment on above: Performed By: #### C XWND #### [facility] [address] [place] [address] Dr. Darrick Cao EPITHELIALS Normal [facility] Comment on above: Performed By: #### C XWND #### [facility] [address] [address] [address] Darrick Cao FUNGAL ELEMENTS Normal [facility] Comment on above: Performed By: #### C XWND #### [facility] [address] [address] [address] Darrick Cao GRAM NEG BACILLI Normal [facility] Comment on above: Performed By: #### C XWND #### [facility] [address] [address] [address] Darrick SOLOMON NEG DIPPLOCOCCI Normal [facility] Comment on above: Performed By: #### C XWND #### [facility] [address] [address] [address] Darrick Cao GRAM POS BACILLI Normal [facility] Comment on above: Performed By: #### C XWND #### [facility] [address] [address] [address] Darrick Cao GRAM POSITIVE COCCI Normal [facility] Comment on above: Performed By: #### C XWND #### [facility] [address] [address] [address] Darrick Cao GRAM STAIN SOURCE Post irrigation left foot Normal [facility] Comment on above: Performed By: #### C XWND #### [facility] [address] [address] [address] Darrick Cao GS_DIPTH Normal [facility] Comment on above: Performed By: #### C XWND #### [facility] [address] [address] [address] Darrick Cao WBC NONE SEEN Normal [facility] Comment on above: Performed By: #### C XWND #### [facility] [address] [address] [address] Darrick Cao POINT OF CARE GLUCOSEon 2 Glucose [Mass/Vol] 132 mg/dL Critically high 74-106 T [facility] Comment on above: Performed By: #### P OCGLUC #### [facility] [address] [address] [address] Darrick Cao Glucose [Mass/Vol] 105 mg/dL Normal 74-106 [facility] Comment on above: Performed By: #### P OCGLUC ####[facility] [id number] [address]Dr. Darrick Cao PROF 14(COMP METB)on 04-24- 022 Albumin [Mass/Vol] 2.9 g/dL Critically low 3.4-5.0 [facility] Comment on above: Performed By: #### P OCGLUC #### [facility] [address] [address] [address] Darrick Cao Albumin/Globulin [Mass ratio] 0.8 {ratio} Normal [facility] Comment on above: Performed By: #### P OCGLUC #### [facility] [address] [address] [address] Darrick Cao ALP [Catalytic activity/Vol] 122 U/L Critically high 46-116 [facility] Comment on above: Performed By: #### P OCGLUC #### [facility] [address] [address] [address] Darrick Cao ALT [Catalytic activity/Vol] 65 U/L Critically high 14-59 [facility] Comment on above: Performed By: #### P OCGLUC #### [facility] [address] [address] [address] Darrick Cao Anion gap [Moles/Vol] 12.2 mmol/L Normal [facility] Comment on above: Performed By: #### P OCGLUC #### [facility] [address] [address] [address] Darrick Cao AST [Catalytic activity/Vol] 28 U/L Normal 15-37 [facility] Comment on above: Performed By: #### P OCGLUC #### [facility] [address] [address] [address] Darrick Cao Bilirubin [Mass/Vol] 0.3 mg/dL Normal 0.2-1.0 [facility] Comment on above: Performed By: #### P OCGLUC #### [facility] [address] [address] [address] Darrick Cao Calcium [Mass/Vol] 8.5 mg/dL Normal 8.5-10.1 [facility] Comment on above: Performed By: #### P OCGLUC #### [facility] [address] [address] [address] Darrick Cao Chloride [Moles/Vol] 107 mmol/L Normal 98-107 [facility] Comment on above: Performed By: #### P OCGLUC #### [facility] [address] [address] [address] Darrick Cao CO2 [Moles/Vol] 25.9 mmol/L Normal 21.0-32.0 [facility] Comment on above: Performed By: #### P OCGLUC #### [facility] [address] [place] [address] Dr. Darrick Cao Creatinine [Mass/Vol] 0.87 mg/dL Normal 0.55-1.02 [facility] Comment on above: Performed By: #### P OCGLUC #### [facility] [address] [place] [address] Dr. Darrick Cao EGFR-AF TANZANIAN >60 Normal >=60 [facility] Comment on above: Performed By: #### P OCGLUC #### [facility] [address] [address] [address] Darrick Cao EGFR-NON AF TANZANIAN >60 Normal >=60 [facility] Comment on above: Performed By: #### P OCGLUC #### [facility] [address] [address] [address] Darrick Cao Globulin (S) [Mass/Vol] 3.8 g/dL Normal [facility] Comment on above: Performed By: #### P OCGLUC #### [facility] [address] [address] [address] Darrick Cao Glucose [Mass/Vol] 107 mg/dL Critically high 74-106 [facility] Comment on above: Performed By: #### P OCGLUC #### [facility] [address] [address] [address] Darrick Cao Potassium [Moles/Vol] 4.1 mmol/L Normal 3.5-5.1 [facility] Comment on above: Performed By: #### P OCGLUC #### [facility] [address] [place] [address] Dr. Darrick Cao Protein [Mass/Vol] 6.7 g/dL Normal 6.4-8.2 [facility] Comment on above: Performed By: #### P OCGLUC #### [facility] [address] [place] [address] Dr. Darrick Cao Sodium [Moles/Vol] 141 mmol/L Normal 136-145 [facility] Comment on above: Performed By: #### P OCGLUC #### [facility] [address] [place] [address] Dr. Darrick Cao Urea nitrogen [Mass/Vol] 10.0 mg/dL Normal 7.0-18.0 [facility] Comment on above: Performed By: #### P OCGLUC #### [facility] [address] [place] [address] Dr. Darrick Cao Urea nitrogen/Creatinine [Mass ratio] 11.5 mg/mg Normal [facility] Comment on above: Performed By: #### P OCGLUC #### [facility] [address] [place] [address] Dr. Darrick Cao VANCOMYCIN TROUGHon 04-24-20 VANCOMYCIN TROUGH 9.6 ug/ml Normal 5.0-20.0 [facility] Comment on above: Performed By: #### V ANCT #### [facility] [address] [place] [address] Dr. Darrick Cao CBC AUTO DIFFon 04-23-2022 BASO # 0.1 103/ul Normal 0.0-0.1 [facility] Comment on above: Performed By: #### C XWND #### [facility] [address] [place] [address] Dr. Darrick Cao Basophils/100 WBC (Bld) 0.6 % Normal 0.2-2.0 [facility] Comment on above: Performed By: #### C XWND #### [facility] [address] [place] [address] Dr. Darrick Cao EO # 0.1 103/ul Normal 0.0-0.7 [facility] Comment on above: Performed By: #### C XWND #### [facility] [address] [place] [address] Dr. Darrick Cao Eosinophils/100 WBC (Bld) 0.6 % Critically low 0.9-7.0 [facility] Comment on above: Performed By: #### C XWND #### [facility] [address] [place] [address] Dr. Darrick Cao Erythrocyte distribution width (RBC) [Ratio] 15.8 % Critically high 11.0-15.0 [facility] Comment on above: Performed By: #### C XWND #### [facility] [address] [place] [address] Dr. Darrick Cao Hematocrit (Bld) [Volume fraction] 34.0 % Critically low 36.0-48.0 [facility] Comment on above: Performed By: #### C XWND #### [facility] [address] [place] [address] Dr. Darrick Cao Hemoglobin (Bld) [Mass/Vol] 11.0 g/dL Critically low 12.0-16.0 [facility] Comment on above: Performed By: #### C XWND #### [facility] [address] [place] [address] Dr. Darrick Cao IG # 0.03 10e3/ul Normal 0.00-0.03 [facility] Comment on above: Performed By: #### C XWND #### [facility] [address] [place] [address] Dr. Darrick Cao IG % 0.4 % Normal 0.0-0.5 [facility] Comment on above: Performed By: #### C XWND #### [facility] [address] [place] [address] Dr. Darrick Cao LYMPH # 1.6 103/ul Normal 1.2-3.8 [facility] Comment on above: Performed By: #### C XWND #### [facility] [address] [place] [address] Dr. Darrick Cao Lymphocytes/100 WBC (Bld) 19.6 % Critically low 20.5-60.0 [facility] Comment on above: Performed By: #### C XWND #### [facility] [address] [place] [address] Dr. Darrick Cao MANUAL DIFF REQ NO Normal [facility] Comment on above: Performed By: #### C XWND #### [facility] [address] [place] [address] Dr. Darrick Cao MCH (RBC) [Entitic mass] 28.1 pg Normal 26.7-34.0 [facility] Comment on above: Performed By: #### C XWND #### [facility] [address] [place] [address] Dr. Darrick Cao MCHC (RBC) [Mass/Vol] 32.4 g/dL Normal 29.9-35.2 [facility] Comment on above: Performed By: #### C XWND #### [facility] [address] [place] [address] Dr. Darrick Cao MCV (RBC) [Entitic vol] 87.0 fL Normal 81.0-99.0 [facility] Comment on above: Performed By: #### C XWND #### [facility] [address] [place] [address] Dr. Darrick Cao MONO # 0.8 103/ul Normal 0.3-0.8 [facility] Comment on above: Performed By: #### C XWND #### [facility] [address] [place] [address] Dr. Darrick Cao Monocytes/100 WBC (Bld) 10.3 % Normal 1.7-12.0 [facility] Comment on above: Performed By: #### C XWND #### [facility] [address] [place] [address] Dr. Darrick Cao NEUT # 5.4 103/ul Normal 1.4-6.5 [facility] Comment on above: Performed By: #### C XWND #### [facility] [address] [address] [address] Darrick Cao Neutrophils/100 WBC (Bld) 68.5 % Normal 43.0-75.0 [facility] Comment on above: Performed By: #### C XWND #### [facility] [address] [address] [address] Darrick Cao Platelet mean volume (Bld) [Entitic vol] 9.9 fL Normal 9.5-13.5 [facility] Comment on above: Performed By: #### C XWND #### [facility] [address] [address] [address] Darrick Cao PLT 276 103/ul Normal 150-450 [facility] Comment on above: Performed By: #### C XWND #### [facility] [address] [address] [address] Darrick Cao RBC 3.91 106/ul Critically low 4.20-5.40 [facility] Comment on above: Performed By: #### C XWND #### [facility] [address] [address] [address] Darrick Cao WBC 7.9 103/ul Normal 4.0-11.0 [facility] Comment on above: Performed By: #### C XWND #### [facility] [address] [address] [address] Darrick Cao POINT OF CARE GLUCOSEon 04-01 Glucose [Mass/Vol] 138 mg/dL Critically high 74-106 [facility] Comment on above: Performed By: #### P OCGLUC ####[facility] [id number] [address]Dr. Darrick Cao Glucose [Mass/Vol] 151 mg/dL Critically high 74-106 [facility] Comment on above: Performed By: #### P OCGLUC #### [facility] [address] [address] [address] Darrick Cao Glucose [Mass/Vol] 141 mg/dL Critically high 74-106 [facility] Comment on above: Performed By: #### P OCGLUC ####[facility] [id number] [place], [place] [id number]. Darrick Cao PROF 14(COMP METB)on 022 Albumin [Mass/Vol] 3.0 g/dL Critically low 3.4-5.[address] [facility] Comment on above: Performed By: #### C XWND #### [facility] [address] [address] [address] Darrick Cao Albumin/Globulin [Mass ratio] 0.9 {ratio} Normal [facility] Comment on above: Performed By: #### C XWND #### [facility] [address] [address] [address] Darrick Cao ALP [Catalytic activity/Vol] 128 U/L Critically high 46-116 [facility] Comment on above: Performed By: #### C XWND #### [facility] [address] [address] [address] Darrick Cao ALT [Catalytic activity/Vol] 71 U/L Critically high 14-59 [facility] Comment on above: Performed By: #### C XWND #### [facility] [address] [address] [address] Darrick Cao Anion gap [Moles/Vol] 13.1 mmol/L Normal [facility] Comment on above: Performed By: #### C XWND #### [facility] [address] [address] [address] Darrick Cao AST [Catalytic activity/Vol] 50 U/L Critically high 15-37 [facility] Comment on above: Performed By: #### C XWND #### [facility] [address] [address] [address] Darrick Cao Bilirubin [Mass/Vol] 0.3 mg/dL Normal 0.2-1.0 [facility] Comment on above: Performed By: #### C XWND #### [facility] [address] [address] [address] Darrick Cao Calcium [Mass/Vol] 8.2 mg/dL Critically low 8.5-10.[address] [facility] Comment on above: Performed By: #### C XWND #### [facility] [address] [address] [address] Darrick Cao Chloride [Moles/Vol] 110 mmol/L Critically high 98-107 [facility] Comment on above: Performed By: #### C XWND #### [facility] [address] [address] [address] Darrick Cao CO2 [Moles/Vol] 23.4 mmol/L Normal 21.0-32.0 [facility] Comment on above: Performed By: #### C XWND #### [facility] [address] [address] [address] Darrick Cao Creatinine [Mass/Vol] 0.96 mg/dL Normal 0.55-1.02 [facility] Comment on above: Performed By: #### C XWND #### [facility] [address] [address] [address] Darrick Cao EGFR-AF TANZANIAN >60 Normal >=60 [facility] Comment on above: Performed By: #### C XWND #### [facility] [address] [address] [address] Darrick Cao EGFR-NON AF TANZANIAN 59 mL/min/1.73m2 Critically low >=60 [facility] Comment on above: Performed By: #### C XWND #### [facility] [address] [address] [address] Darrick Cao Globulin (S) [Mass/Vol] 3.3 g/dL Normal [facility] Comment on above: Performed By: #### C XWND #### [facility] [address] [address] [address] Darrick Cao Glucose [Mass/Vol] 116 mg/dL Critically high 74-106 [facility] Comment on above: Performed By: #### C XWND #### [facility] [address] [address] [address] Darrick Cao Potassium [Moles/Vol] 4.5 mmol/L Normal 3.5-5.1 [facility] Comment on above: Performed By: #### C XWND #### [facility] [address] [place] [address] Dr. Darrick Cao Protein [Mass/Vol] 6.3 g/dL Critically low 6.4-8.2 [facility] Comment on above: Performed By: #### C XWND #### [facility] [address] [place] [address] Dr. Darrick Cao Sodium [Moles/Vol] 142 mmol/L Normal 136-145 [facility] Comment on above: Performed By: #### C XWND #### [facility] [address] [place] [address] Dr. Darrick Cao Urea nitrogen [Mass/Vol] 14.0 mg/dL Normal 7.0-18.0 [facility] Comment on above: Performed By: #### C XWND #### [facility] [address] [place] [address] Dr. Darrick Cao Urea nitrogen/Creatinine [Mass ratio] 14.6 mg/mg Normal [facility] Comment on above: Performed By: #### C XWND #### [facility] [address] [place] [address] Dr. Darrick Cao CBC AUTO DIFFon 04-22-2022 BASO # 0.1 103/ul Normal 0.0-0.1 [facility] Comment on above: Performed By: #### C BC #### [facility] [address] [place] [address] Dr. Darrick Cao Basophils/100 WBC (Bld) 0.7 % Normal 0.2-2.0 [facility] Comment on above: Performed By: #### C BC #### [facility] [address] [place] [address] Dr. Darrick Cao EO # 0.1 103/ul Normal 0.0-0.7 [facility] Comment on above: Performed By: #### C BC #### [facility] [address] [place] [address] Dr. Darrick Cao Eosinophils/100 WBC (Bld) 0.5 % Critically low 0.9-7.0 [facility] Comment on above: Performed By: #### C BC #### [facility] [address] [place] [address] Dr. Darrick Cao Erythrocyte distribution width (RBC) [Ratio] 15.8 % Critically high 11.0-15.0 [facility] Comment on above: Performed By: #### C BC #### [facility] [address] [place] [address] Dr. Darrick Cao Hematocrit (Bld) [Volume fraction] 39.8 % Normal 36.0-48.0 [facility] Comment on above: Performed By: #### C BC #### [facility] [address] [place] [address] Dr. Darrick Cao Hemoglobin (Bld) [Mass/Vol] 12.9 g/dL Normal 12.0-16.0 [facility] Comment on above: Performed By: #### C BC #### [facility] [address] [place] [address] Dr. Darrick Cao IG # 0.03 10e3/ul Normal 0.00-0.03 [facility] Comment on above: Performed By: #### C BC #### [facility] [address] [place] [address] Dr. Darrick Cao IG % 0.3 % Normal 0.0-0.5 [facility] Comment on above: Performed By: #### C BC #### [facility] [address] [place] [address] Dr. Darrick Cao LYMPH # 1.6 103/ul Normal 1.2-3.8 [facility] Comment on above: Performed By: #### C BC #### [facility] [address] [place] [address] Dr. Darrick Cao Lymphocytes/100 WBC (Bld) 16.0 % Critically low 20.5-60.0 [facility] Comment on above: Performed By: #### C BC #### [facility] [address] [place] [address] Dr. Darrick Cao MANUAL DIFF REQ NO Normal [facility] [place] [facility] Comment on above: Performed By: #### C BC #### [facility] [address] [address] [address] Darrick Cao MCH (RBC) [Entitic mass] 28.2 pg Normal 26.7-34.0 [facility] Comment on above: Performed By: #### C BC #### [facility] [address] [place] [address] Dr. Darrick Cao MCHC (RBC) [Mass/Vol] 32.4 g/dL Normal 29.9-35.2 [facility] Comment on above: Performed By: #### C BC #### [facility] [address] [place] [address] Dr. Darrick Cao MCV (RBC) [Entitic vol] 86.9 fL Normal 81.0-99.0 [facility] Comment on above: Performed By: #### C BC #### [facility] [address] [place] [address] Dr. Darrick Cao MONO # 0.9 103/ul Critically high 0.3-0.8 [facility] [place] [facility] Comment on above: Performed By: #### C BC #### [facility] [address] [place] [address] Dr. Darrick Cao Monocytes/100 WBC (Bld) 8.7 % Normal 1.7-12.0 [facility] Comment on above: Performed By: #### C BC #### [facility] [address] [place] [address] Dr. Darrick Cao NEUT # 7.5 103/ul Critically high 1.4-6.5 [facility] [place] [facility] Comment on above: Performed By: #### C BC #### [facility] [address] [place] [address] Dr. Darrick Cao Neutrophils/100 WBC (Bld) 73.8 % Normal 43.0-75.0 [facility] Comment on above: Performed By: #### C BC #### [facility] [address] [place] [address] Dr. Darrick Cao Platelet mean volume (Bld) [Entitic vol] 9.3 fL Critically low 9.5-13.5 [facility] Comment on above: Performed By: #### C BC #### [facility] [address] [address] [address] Darrick Cao PLT 345 103/ul Normal 150-450 [facility] Comment on above: Performed By: #### C BC #### [facility] [address] [address] [address] Darrick Cao RBC 4.58 106/ul Normal 4.20-5.40 [facility] Comment on above: Performed By: #### C BC #### [facility] [address] [address] [address] Darrick Cao WBC 10.1 103/ul Normal 4.0-11.0 [facility] Comment on above: Performed By: #### C BC #### [facility] [address] [place] [address] Dr. Darrick Cao CRPon 04-22-2022 CRP 5.2 mg/dL Critically high <=1.0 [facility] [place] [facility] Comment on above: Performed By: #### B MP, CRP ####[facility] [address] [id number]. Darrick Cao CULTURE BLOODon 04-22-2022 Microscopic examination of blood, culture Culture Observations: NO GROWTH AT 5 DAYS. Normal [facility] Comment on above: Performed By: #### B LDCX2 #### [facility] [address] [address] [address] Darrick Cao Microscopic examination of blood, culture Culture Observations: NO GROWTH AT 5 DAYS. Normal [facility] Comment on above: Performed By: #### B LDCX1 #### [facility] [address] [address] [address] Darrick Ca[facility]01 SARS-CoV-2 (COVID-19) RNA ALEKSANDR+probe Ql (Unsp spec) Not detected Normal NOT DETECTED [facility] Comment on above: Result Comment: When diagnostic testing is negative, the possibility of a false negative should be considered in the context of a patient's recent exposures and the presence of clinical signs and symptoms consistent with SARS-CoV-2. This test is not yet approved or cleared by the [place] FDA. When there are no FDA-approved or cleared tests available, and other criteria are met, FDA can make tests available under an emergency access mechanism called an Emergency Use Authorization (EUA). The EUA for this test is supported by the [place] of Health and Human Service's declaration that circumstances exist to justify the emergency use of in vitro diagnostics for the detection and/or diagnosis of the virus that causes COVID-19. This EUA will remain in effect for the duration of the COVID-19 declaration justifying emergency of IVDs, unless it is terminated or revoked by the FDA (after which the test may no longer be used). Performed By: #### P OCGLUC #### [facility] [address] [place] [address] Dr. Darrick Cao LACTATE/LACTIC ACIDon 2021 Lactate [Moles/Vol] 1.3 mmol/L Normal 0.4-1.9 [facility] Comment on above: Performed By: #### P OCGLUC #### [facility] [address] [place] [address] Dr. Darrick Cao POINT OF CARE GLUCOSEon 04-01 Glucose [Mass/Vol] 96 mg/dL Normal 74-106 [facility] Comment on above: Performed By: #### P OCGLUC #### [facility] [address] [place] [address] Dr. Darrick aCo PROF CHEM 8 (BAS METB)on Anion gap [Moles/Vol] 12.3 mmol/L Normal [facility] Comment on above: Performed By: #### B MP, CRP ####[facility] [address] [address]Dr. Darrick Cao Calcium [Mass/Vol] 9.2 mg/dL Normal 8.5-10.1 [facility] Comment on above: Performed By: #### B MP, CRP ####[facility] [address] [address]Dr. Darrick Cao Chloride [Moles/Vol] 104 mmol/L Normal 98-107 [facility] Comment on above: Performed By: #### B MP, CRP ####[facility] [address] [address]Dr. Darrick Cao CO2 [Moles/Vol] 26.4 mmol/L Normal 21.0-32.0 [facility] Comment on above: Performed By: #### B MP, CRP ####[facility] [address] [place], [place] [address]Dr. Darrick Cao Creatinine [Mass/Vol] 1.19 mg/dL Critically high 0.55-1.02 [facility] Comment on above: Performed By: #### B MP, CRP ####[facility] [address] [place], [place] [address]Dr. Darrick Cao EGFR-AF TANZANIAN 56 mL/min/1.73m2 Critically low >=60 [facility] Comment on above: Performed By: #### B MP, CRP ####[facility] [address] [place], [place] [address]Dr. Darrick Cao EGFR-NON AF TANZANIAN 46 mL/min/1.73m2 Critically low >=60 [facility] Comment on above: Performed By: #### B MP, CRP ####[facility] [address] [place], [place] [address]Dr. Darrick Cao Glucose [Mass/Vol] 124 mg/dL Critically high 74-106 [facility] Comment on above: Performed By: #### B MP, CRP ####[facility] [address] [place], [place] [address]Dr. Darrick Cao Potassium [Moles/Vol] 4.7 mmol/L Normal 3.5-5.1 [facility] Comment on above: Performed By: #### B MP, CRP ####[facility] [address] [place], [place] [address]Dr. Darrick Cao Sodium [Moles/Vol] 138 mmol/L Normal 136-145 [facility] Comment on above: Performed By: #### B MP, CRP ####[facility] [address] [place], [place] [address]Dr. Darrick Cao Urea nitrogen [Mass/Vol] 21.0 mg/dL Critically high 7.0-18.0 [facility] Comment on above: Performed By: #### B MP, CRP ####[facility] [address] [place], [place] [address]Mw. Darrick Cao Urea nitrogen/Creatinine [Mass ratio] 17.6 mg/mg Normal [facility] Comment on above: Performed By: #### B MP, CRP ####[facility] [address] [place], [place] [address]Fb. Darrick Cao [facility] SED [facility]ATE 64 mm/hr Critically high <=30 [facility] Comment on above: Performed By: #### P OCGLUC #### [facility] [address] [address] [address] ANKLE LT WO CONon 022 CT ANKLE LT WO CON EXAMINATION: CT ANKL E LT WO CON HISTORY: Idiopathic osteoarthritis COMPARISON: No relevant comparison available. TECHNIQUE: Multi-planar CT images were created without IV contrast. Dose reduction techniques were achieved by using automated exposure control and/or adjustment of mA and/or kV according to patient size and/or use of iterative reconstruction technique. FINDINGS: BONES: No acute fracture or dislocation. Permeative pattern of the bones suggests osteopenia. Lucency in the distal tibia consistent with bone graft harvesting. Extensive hardware throughout the foot with subtalar fusion utilizing 2 cannulated lag screws. Fusion of the dorsal midfoot hindfoot and forefoot with multiple plates and screws. Wedge spacer at the first tarsometatarsal joint. SOFT TISSUES: Moderate soft tissue swelling most significant along the dorsal foot. Surgical skin levi. EFFUSION: None visible. OTHER: No mechanical failure is definitively seen IMPRESSION: Surgical changes of the foot with fixation hardware as detailed above No acute fracture, dislocation or mechanical failure Osteopenia Electronically authenticated by: SHAWNEE KELLY Date: 2022-03-11 10:18 Normal [facility] COVID Quick Testingon 2020 Result Negative [facility] Other Operative Reporton 1 Operative Report MR#: [id number] [facility] Pt. Name: Nicol Knowles Room #: 0C Discharge Date: Birthdate: 1960 OPERATIVE REPORT DATE OF SURGERY: 12/16/2020 SURGEON: David Lr M.D. PREOPERATIVE DIAGNOSIS: Trigger digits, right long finger and thumb. POSTOPERATIVE DIAGNOSIS: Trigger digits, right long finger and thumb. PROCEDURE: A1 leigha release, right long finger and thumb. APPRAISER IRRIGATION TAX: Hay Mast M.D. ANESTHESIA: MAC. INDICATION FOR SURGERY: The patient is a 60-year-old female, whom we saw in our [facility] with complaints of pain and locking in the right long finger and thumb. Her examination was consistent with that of trigger digits. This has been a worsening problem for her despite nonoperative means of treatment. She is felt to be a candidate for surgical management at this point in time. She was brought to the operating room today for that purpose. The risks and benefits were explained prior to surgery and with good understanding, it is agreed to proceed. NARRATION: The patient was brought to the operating room and placed on the table in the supine position. A tourniquet was placed around the proximal right arm. No antibiotics were used. The right upper extremity was prepped and draped out in a sterile fashion. To begin the procedure, after a standard time-out, she was sedated per the Anesthesia Service and the operative sites were anesthetized with 1% lidocaine with epinephrine. The arm was then exsanguinated with an Esmarch bandage and the tourniquet was inflated to 250 mmHg. Using a #15 blade, a 1.5 cm diagonal incision was made over the volar side of the MP region of both the left long finger and thumb. We started with the long finger and bluntly dissected down to the flexor sheath. Three Ragnell retractors were used to expose the A1 leigha. Where we could clearly see the leigha it has opened up longitudinally in the midline with a knife blade. Switching to a tenotomy scissor, we split the sheath distally to about the level of the MP flexion crease on the skin. Proximally, the sheaths released back toward the palm until it was completely free. The tendons were both pulled out and each has nice excursion without any catching. We then went to the thumb and again bluntly dissected down to the sheath. The radial digital nerve to the thumb was identified and protected with a Ragnell. Two additional Ragnells were used to expose the leigha. Once again, we opened up 1st with a knife blade and then with a tenotomy scissor completely releasing the sheath proximally and stopping it about the oblique leigha level distally. Again, the tendons pulled out into the wound. This tendon looked a little bit irritated as did the superficialis on the long finger. There was just a little bit of fraying of the tendon. The wound was irrigated with normal saline solution and closed with 5-0 Novafil suture. A sterile dressing of Xeroform gauze, 4x4 fluffs, Kaela, and an Hernan bandage was applied. The tourniquet was released and the drapes were removed. All sponge and needle counts were correct at time of closure. She was brought to the recovery area in stable condition, having tolerated the procedure well. Electronically Signed by: David Lr M.D. 12/19/2020 08:41 A David Lr M.D. Date Dict: 12/16/2020/07:48 A/David Lr M.D. Date Trans: 12/16/2020 09:13 A/braxton [id number] cc: Waqas Peirce M.D. [address] [place] [id number] Normal [facility] POC GLUCOSE LABon 12-16-2020 Glucose [Mass/Vol] 103 mg/dL High 70-100 [facility] Comment on above: Performed By: #### [id number] #### [address] [place] [address], [facility] Vital Signs Date Time Vital Sign Value Performing Clinician Facility 10-15-2023 10:00-0500 Body height 170.18 cm Grecia Carrera Other [facility] Other 10-15-2023 10:00-0500 Body mass index (BMI) [Ratio] 40.08 kg/m2 Grecia Carrera Other [facility] Other 10-15-2023 10:00-0500 Body weight 116.08 kg Grecia Fitt Other [facility] Other 09-18-2023 11:00-0500 Body height 170.18 cm Rolando Castellanos Other [facility] Other 09-18-2023 11:00-0500 Body mass index (BMI) [Ratio] 40.45 kg/m2 Rolando Castellanos Other [facility] Other 09-18-2023 11:00-0500 Body weight 117.16 kg Rolando Castellanos Other [facility] Other 09-18-2023 11:00-0500 Diastolic blood pressure 80 mm[Hg] Rolando Castellanos Other [facility] Other 09-18-2023 11:00-0500 Respiratory rate 18 /min Rolando Castellanos Other [facility] Other 09-18-2023 11:00-0500 SaO2% (BldA) [Mass fraction] 98 % Rolando Castellanos Other [facility] Other 09-18-2023 11:00-0500 Systolic blood pressure 115 mm[Hg] Rolando Castellanos Other [facility] Other 09-17-2023 10:45-0500 Body height 170.18 cm Grecia Henryroberto Other [facility] Other 09-17-2023 10:45-0500 Body mass index (BMI) [Ratio] 40.65 kg/m2 Grecia Henryt Other [facility] Other 09-17-2023 10:45-0500 Body weight 117.75 kg Grecia Fitt Other [facility] Other 09-03-2023 12:45-0500 Diastolic blood pressure 60 mm[Hg] MD Waqas Pierce Work Phone: [facility] 09-03-2023 12:45-0500 Heart rate 70 /min MD Waqas Pierce Work Phone: [facility] 09-03-2023 12:45-0500 Inhaled oxygen flow rate 1 L/min MD Waqas Pierce Work Phone: [facility] 09-03-2023 12:45-0500 Respiratory rate 16 /min MD Waqas Pierce Work Phone: [facility] 09-03-2023 12:45-0500 SaO2% (BldA) [Mass fraction] 97 % MD Waqas Pierce Work Phone: [facility] 09-03-2023 12:45-0500 Systolic blood pressure 132 mm[Hg] MD Waqas Pierce Work Phone: [facility] 09-03-2023 10:21-0500 Body temperature 98.4 [degF] MD Waqas Pierce Work Phone: [facility] 09-03-2023 07:14-0500 Body height 172.72 cm MD Waqas Pierce Work Phone: [facility] 09-03-2023 07:14-0500 Body mass index (BMI) [Ratio] 39.5 kg/m2 MD Waqas Pierce Work Phone: [facility] 09-03-2023 07:14-0500 Body weight 118 kg MD Waqas Pierce Work Phone: [facility] 08-21-2023 14:30-0500 Body height 170.18 cm Waqas Pierce Other [facility] Other 08-21-2023 14:30-0500 Body mass index (BMI) [Ratio] 39.46 kg/m2 Waqas Pierce Other [facility] Other 08-21-2023 14:30-0500 Body weight 114.31 kg Waqas Pierce Other [facility] Other 08-21-2023 14:30-0500 Diastolic blood pressure 84 mm[Hg] Waqas Pierce Other [facility] Other 08-21-2023 14:30-0500 Systolic blood pressure 138 mm[Hg] Waqas Pierce Other [facility] Other 08-13-2023 10:45-0500 Body height 170.18 cm Grecia Fitt Other [facility] Other 08-13-2023 10:45-0500 Body mass index (BMI) [Ratio] 41.22 kg/m2 Grecia Fitt Other [facility] Other 08-13-2023 10:45-0500 Body weight 119.39 kg Grecia Fitt Other [facility] Other 07-26-2023 11:30-0400 Body height 170.18 cm Rolando Castellanos Other [facility] Other 07-26-2023 11:30-0400 Body mass index (BMI) [Ratio] 41.86 kg/m2 Rloando Castellanos Other [facility] Other 07-26-2023 11:30-0400 Body weight 121.25 kg Rolando Castellanos Other [facility] Other 07-26-2023 11:30-0400 Diastolic blood pressure 77 mm[Hg] Rolando Castellanos Other [facility] Other 07-26-2023 11:30-0400 Respiratory rate 18 /min Rolando Castellanos Other [facility] Other 07-26-2023 11:30-0400 SaO2% (BldA) [Mass fraction] 98 % Rolando Castellanos Other [facility] Other 07-26-2023 11:30-0400 Systolic blood pressure 121 mm[Hg] Rolando Castellanos Other [facility] Other 07-23-2023 10:45-0400 Body height 170.18 cm Grecia Fitt Other [facility] Other 07-23-2023 10:45-0400 Body mass index (BMI) [Ratio] 41.78 kg/m2 Grecia Fitt Other [facility] Other 07-23-2023 10:45-0400 Body weight 121.02 kg Grecia Fitt Other [facility] Other 06-27-2023 15:15-0400 Body height 170.18 cm David Mcfarland II Other [facility] Other 06-27-2023 15:15-0400 Body mass index (BMI) [Ratio] 41.97 kg/m2 David Rdzle II Other [facility] Other 06-27-2023 15:15-0400 Body weight 121.56 kg David Mcfarland II Other [facility] Other 06-18-2023 11:30-0400 Body height 170.18 cm Grecia Fitt Other [facility] [employer] Other 06-18-2023 11:30-0400 Body mass index (BMI) [Ratio] 42.52 kg/m2 Grecia Fitt Other [facility] Other 06-18-2023 11:30-0400 Body weight 123.15 kg Grecia Fitt Other [facility] Other 06-14-2023 10:00-0400 Body height 170.18 cm Rolando Castellanos Other [facility] [employer] Other 06-14-2023 10:00-0400 Body mass index (BMI) [Ratio] 42.89 kg/m2 Rolando Castellanos Other [facility] Other 06-14-2023 10:00-0400 Body weight 124.24 kg Rolando Castellanos Other [facility] Other 06-14-2023 10:00-0400 Diastolic blood pressure 87 mm[Hg] Rolando Castellanos Other [facility] Other 06-14-2023 10:00-0400 Respiratory rate 18 /min Rolando Castellanos Other [facility] [employer] Other 06-14-2023 10:00-0400 SaO2% (BldA) [Mass fraction] 100 % Rolando Castellanos Other [facility] Other 06-14-2023 10:00-0400 Systolic blood pressure 124 mm[Hg] Rolando Castellanos Other [facility] Other 06-11-2023 12:45-0400 Body height 170.18 cm Waqas Pierce Other [facility] Other 06-11-2023 12:45-0400 Body mass index (BMI) [Ratio] 42.41 kg/m2 Waqas Pierce Other [facility] Other 06-11-2023 12:45-0400 Body weight 122.83 kg Waqas Pierce Other [facility] [employer] Other 06-11-2023 12:45-0400 Diastolic blood pressure 76 mm[Hg] Waqas Pierce Other [facility] [employer] Other 06-11-2023 12:45-0400 Respiratory rate 12 /min Waqas Pierce Other [facility] [employer] Other 06-11-2023 12:45-0400 Systolic blood pressure 124 mm[Hg] Waqas Pierce Other [facility] [employer] Other 05-14-2023 10:00-0400 Body height 170.18 cm Grecia Fitt Other [facility] [employer] Other 05-14-2023 10:00-0400 Body mass index (BMI) [Ratio] 43.05 kg/m2 Grecia Fitt Other [facility] Other 05-14-2023 10:00-0400 Body weight 124.69 kg Grecia Fitt Other [facility] Other 04-16-2023 10:00-0400 Body height 170.18 cm Grecia Fitt Other [facility] [employer] Other 04-16-2023 10:00-0400 Body mass index (BMI) [Ratio] 43.94 kg/m2 Grecia Fitt Other [facility] Other 04-16-2023 10:00-0400 Body weight 127.28 kg Grecia Fitt Other [facility] Other 01-11-2023 11:00-0400 Body height 170.18 cm Grecia Fitt Other [facility] Other 01-11-2023 11:00-0400 Body mass index (BMI) [Ratio] 47.37 kg/m2 Grecia Fitt Other [facility] [employer] Other 01-11-2023 11:00-0400 Body weight 137.21 kg Grecia Fitt Other [facility] [employer] Other 11-16-2022 11:45-0500 Body height 170.18 cm Rolando Castellanos Other [facility] [employer] Other 11-16-2022 11:45-0500 Body mass index (BMI) [Ratio] 47 kg/m2 Rolando Castellanos Other [facility] [employer] Other 11-16-2022 11:45-0500 Body weight 136.13 kg Rolando Castellanos Other [facility] Other 11-16-2022 11:45-0500 Diastolic blood pressure 85 mm[Hg] Rolando Castellanos Other [facility] Other 11-16-2022 11:45-0500 Respiratory rate 18 /min Rolando Reyesdiff Other [facility] [employer] Other 11-16-2022 11:45-0500 SaO2% (BldA) [Mass fraction] 97 % Rolando Castellanos Other [facility] Other 11-16-2022 11:45-0500 Systolic blood pressure 114 mm[Hg] Rolando Reyesdiff Other [facility] [employer] Other 11-14-2022 09:15-0500 Body height 170.18 cm Grecia Carrera Other [facility] [employer] Other 11-08-2022 14:57-0500 Blood Pressure Location [employer] [facility] [employer] 11-08-2022 14:57-0500 Diastolic blood pressure 74 mm[Hg] Efrain NILL [facility] [employer] [facility] 11-08-2022 14:57-0500 Heart rate 80 /min Efrain NILL [facility] [employer] [facility] 11-08-2022 14:57-0500 Respiratory rate 16 /min Efrain NILL [facility] [employer] [facility] 11-08-2022 14:57-0500 Systolic blood pressure 118 mm[Hg] Efrain NILL [facility] [employer] 10-23-2022 10:30-0500 Body height 170.18 cm Waqas Pierce Other [facility] [employer] Other 10-23-2022 10:30-0500 Body mass index (BMI) [Ratio] 46.04 kg/m2 Waqas Pierce Other [facility] [employer] Other 10-23-2022 10:30-0500 Body weight 133.36 kg Waqas Pierce Other [facility] [employer] Other 10-23-2022 10:30-0500 Diastolic blood pressure 88 mm[Hg] Waqas Kari Other [facility] [employer] Other 10-23-2022 10:30-0500 Systolic blood pressure 148 mm[Hg] Waqas Kari Other [facility] [employer] Other 10-13-2022 10:15-0500 Body height 170.18 cm Rachel Missler Other [facility] [employer] Other 10-13-2022 10:15-0500 Body mass index (BMI) [Ratio] 45.89 kg/m2 Rachel Missler Other [facility] Other 10-13-2022 10:15-0500 Body weight 132.9 kg Rachel Missler Other [facility] [employer] Other 10-13-2022 10:15-0500 Diastolic blood pressure 89 mm[Hg] Rachel Missler Other [facility] [employer] Other 10-13-2022 10:15-0500 Respiratory rate 18 /min Rachel Missler Other [facility] [employer] Other 10-13-2022 10:15-0500 SaO2% (BldA) [Mass fraction] 96 % Rachel Missler Other [facility] [employer] Other 10-13-2022 10:15-0500 Systolic blood pressure 138 mm[Hg] Rachel Missler Other [employer] Other 09-06-2022 16:00-0500 Body height 170.18 cm David Mcfarland II Other [employer] Other 09-06-2022 16:00-0500 Body mass index (BMI) [Ratio] 45.57 kg/m2 David Mcfarland II Other [employer] Other 09-06-2022 16:00-0500 Body weight 132 kg David Mcfarland II Other [employer] Other 07-25-2021 18:45-0400 Body height 170.18 cm Mallory Wilfrid Other [employer] Other 07-25-2021 18:45-0400 Body mass index (BMI) [Ratio] 42.91 kg/m2 Mallory Wilfrid Other [employer] Other 07-25-2021 18:45-0400 Body temperature 98.6 [degF] Mallory Rangelault Other [employer] Other 07-25-2021 18:45-0400 Body weight 124.29 kg Mallory Rangelault Other [employer] Other 07-25-2021 18:45-0400 Respiratory rate 18 /min Mallory Yuen Other [employer] Other 07-25-2021 18:45-0400 SaO2% (BldA) [Mass fraction] 96 % Mallory Wilfrid Other [employer] Other Encounters Encounter Date Encounter Type Care Provider Facility Start: 10-17-2023 Postop follow up vis it related to original px David Mcfarland II [facility] Start: 10-17-2023 End: 10-17-2023 ambulatory NON STAFF [facility] Work Phone: Start: 10-17-2023 End: 10-17-2023 Patient encounter procedure [facility] Start: 10-15-2023 ([facility] FU) [facility] F/ U Registerd Roof [employer] Grecia Carrera [facility] Start: 10-15-2023 End: 10-15-2023 ambulatory Grecia Henryt Other [employer] Other Start: 10-15-2023 Registered Recurring [facility] Ctr-Weight Management Work Phone: Start: 10-02-2023 End: 10-02-2023 ambulatory Rolando Castellanos Other [employer] Other Start: 10-02-2023 Telephone encounter Rolando dhillon [facility] Start: 09-19-2023 End: 09-19-2023 ambulatory David Romeo II Other [employer] Other Start: 09-19-2023 Postop follow up vis it related to original px Carrie Perea [facility] Start: 09-19-2023 Telephone encounter David Romeo II [facility] [employer] [facility] Start: 09-18-2023 End: 09-18-2023 ambulatory Rolando Castellanos Other [employer] Other Start: 09-18-2023 Follow-up encounter Rolando dhillon [facility] Start: 09-17-2023 ([facility] FU) [facility] F/ U Registerd Roof [employer] Grecia Carrera [facility] Start: 09-17-2023 End: 09-17-2023 ambulatory Grecia Fitt Other [employer] Other Start: 09-10-2023 End: 09-10-2023 ambulatory David Bartolo II Other [employer] Other Start: 09-10-2023 Telephone encounter David Mcelroyisle II [facility] Start: 09-03-2023 End: 09-03-2023 ambulatory David M Romeo II Facility:[facility] Start: 09-03-2023 End: 09-03-2023 Admission to same day surgery center MD Waqas Pierce Work Phone: [facility] [place] Start: 09-03-2023 End: 09-03-2023 ambulatory MD Waqas Pierce Work Phone: [facility] Work Phone: Start: 08-31-2023 (Prolonged) Prolonge d Services David Mcelroyisle II [facility] Start: 08-31-2023 End: 08-31-2023 ambulatory David Rdzle II Other [employer] Other Start: 08-31-2023 Registered Recurring MD Waqas Pierce Work Phone: [facility] [place] Start: 08-30-2023 End: 08-30-2023 ambulatory David Mcelroyisle II Other [employer] Other Start: 08-30-2023 Office outpatient vi sit 40 minutes David Romeo II [facility] Start: 08-28-2023 End: 08-28-2023 ambulatory David M Romeo II Facility:[facility] Start: 08-28-2023 End: 08-28-2023 ambulatory MD Waqas Pierce Work Phone: [facility] Work Phone: Start: 08-28-2023 End: 08-28-2023 Patient encounter procedure MD Waqas Pierce Work Phone: [facility] Work Phone: Start: 08-21-2023 End: 08-21-2023 ambulatory Waqas Pierce Other [employer] Other Start: 08-21-2023 Encounter for other preprocedural examination Waqas Pierce [facility] Start: 08-21-2023 Office outpatient vi sit 25 minutes Waqas Pierce [facility] Start: 08-15-2023 End: 08-15-2023 ambulatory David Mcfarland II Facility:[facility] Start: 08-15-2023 End: 08-15-2023 ambulatory MD Waqas Pierce Work Phone: [facility] Work Phone: Start: 08-15-2023 End: 08-15-2023 Patient encounter procedure MD Waqas Pierce Work Phone: [facility] Start: 08-13-2023 Registered Recurring MD Waqas Pierce Work Phone: [facility]tr-Weight Management Work Phone: Start: 08-13-2023 ([facility] FU) [facility] F/ U Registerd Roof [employer] Gercia Carrera [facility] Start: 08-13-2023 End: 08-13-2023 ambulatory David Mcfarland II [facility] Other Start: 08-06-2023 End: 08-06-2023 ambulatory David Mcfarland II Other [employer] Other Start: 08-06-2023 Telephone encounter David Mcfarland II [facility] Start: 08-01-2023 End: 08-01-2023 ambulatory Waqas Pierce Other [employer] Other Start: 08-01-2023 Telephone encounter Waqas Pierce [facility] Start: 07-31-2023 (Televisit) Televisit Waqas Pierce [facility] Start: 07-31-2023 End: 07-31-2023 ambulatory Waqas Pierce Other [employer] Other Start: 07-26-2023 End: 07-26-2023 ambulatory Rolando Castellanos Other [employer] Other Start: 07-26-2023 Follow-up encounter Rolando [facility] Start: 07-26-2023 Telephone encounter David Mcfarland II [facility] Start: 07-23-2023 ([facility] FU) [facility] F/ U Registerd Roof [employer] Grecia Carrera [facility] Start: 07-23-2023 End: 07-23-2023 ambulatory Grecia Henryt Other [employer] Other Start: 07-16-2023 End: 07-16-2023 ambulatory [facility] Start: 07-09-2023 End: 07-09-2023 ambulatory Rolandotimothy Reyesdiff Other [employer] Other Start: 07-09-2023 Telephone encounter Rolando dhill[facility] Start: 06-27-2023 End: 06-27-2023 ambulatory David Mcfarland II Other [employer] Other Start: 06-27-2023 Office outpatient vi sit 25 minutes David Bartolo II [facility] Start: 06-19-2023 End: 06-19-2023 ambulatory Waqas Pierce Other [employer] Other Start: 06-19-2023 Telephone encounter Waqas Pierce [facility] Start: 06-18-2023 ([facility] FU) [facility] F/ U Registerd Roof [employer] Grecia Carrera [facility] Start: 06-18-2023 End: 06-18-2023 ambulatory Grecia Fitt Other [employer] Other Start: 06-14-2023 End: 06-14-2023 ambulatory Rolando Castellanos Other [employer] Other Start: 06-14-2023 Follow-up encounter Rolando Castellanos [facility] Start: 06-11-2023 End: 06-11-2023 ambulatory Waqas Pierce Other [employer] Other Start: 06-11-2023 Encounter for genera l adult medical examination without abnormal findings Waqas Kari [facility] Start: 06-11-2023 Periodic preventive med est patient 40-64yrs Waqasyunior Pierce [facility] Start: 06-01-2023 End: 06-01-2023 ambulatory Waqas Kari Other [employer] Other Start: 06-01-2023 Telephone encounter Waqas Kari [facility] Start: 05-28-2023 End: 05-28-2023 ambulatory Waqas Kari Other [employer] Other Start: 05-28-2023 Telephone encounter Waqas Kari [facility] Start: 05-14-2023 ([facility] FU) [facility] F/ U Registerd Roof [employer] Grecia Carlt [facility] Start: 05-14-2023 End: 05-14-2023 ambulatory Grecia Fitt Other [employer] Other Start: 04-16-2023 ([facility] FU) [facility] F/ U Registerd Roof [employer] Grecia Fitt [facility] Start: 04-16-2023 End: 04-16-2023 ambulatory Grecia Fitt Other [employer] Other Start: 03-28-2023 ambulatory NON STAFF Facility:[facility] Start: 03-21-2023 End: 03-21-2023 ambulatory Waqas Kari Other [employer] Other Start: 03-21-2023 Telephone encounter Waqas Pierce [facility] Start: 02-22-2023 ambulatory MER MAYBERRY . Facil ity:[facility]1 Start: 02-13-2023 End: 02-14-2023 ambulatory AMY Iverson [facility] Facility:[facility] Start: 01-31-2023 End: 01-31-2023 ambulatory Waqas Pierce Other [employer] Other Start: 01-31-2023 Telephone encounter Waqas Pierce [facility] [address] Start: 01-30-2023 End: 01-31-2023 ambulatory AMY Iverson [facility] Facility:[facility] Start: 01-19-2023 End: 01-20-[address] ROLANDO CASTELLANOS Facility:[facility] Start: [facility] WM[facility] Init ial Provider Grecia Carrera [facility] Start: 01-11-2023 End: 01-11-2023 ambulatory Grecia Carrera Other [employer] Other Start: 01-09-2023 End: 01-10-2023 ambulatory AMY Iverson [facility] Facility:H1 Start: 12-25-2022 End: 12-25-2022 ambulatory Junior Mcgowan Other [employer] Other Start: 12-25-2022 Telephone encounter [facility] Start: 12-22-2022 End: 12-23-2022 ambulatory AMY Iverson [facility] Facility:H1 Start: 12-18-2022 End: 12-18-2022 ambulatory Junior Mcgowan Other [employer] Other Start: 12-18-2022 Telephone encounter Junior [facility] Start: 12-15-2022 End: 12-15-2022 ambulatory Waqas Pierce Other [employer] Other Start: 12-15-2022 Telephone encounter Waqas Pierce [facility] Start: 12-12-2022 Telephone encounter Rolando Vasquez [facility] Start: 12-12-2022 End: 12-13-[address] WAQAS PIERCE [employer] Other Start: 12-06-2022 Telephone encounter Waqas Pierce [facility] Start: 12-06-2022 End: 12-07-2022 ambulatory Efrain CORTES [employer] Other Start: 12-01-2022 End: 12-02-[address] WAQAS PIERCE Facility: Start: 11-20-2022 End: 11-20-2022 ambulatory Rolando Castellanos Other [employer] Other Start: 11-20-2022 Telephone encounter Rolando Vasquez [facility] Start: 11-17-2022 Telephone encounter Waqas Pierce [facility] Start: 11-17-2022 End: 11-18-[address] WAQAS PIERCE [employer] Other Start: 11-16-2022 End: 11-16-2022 ambulatory Rolando Castellanos Other [employer] Other Start: 11-16-2022 Follow-up encounter Rolando Castellanos [facility] Start: 11-14-2022 End: 11-14-2022 ambulatory Grecia Carlt Other [employer] Other Start: 11-14-2022 IBT FOR OBESITY GROU P 2-10 30M Grecia Carlt [facility] Start: 11-13-2022 End: 11-13-2022 ambulatory Waqas Pierce Other [employer] Other Start: 11-13-2022 Telephone encounter Waqas Pierce [facility] Start: 11-08-2022 End: 11-09-2022 ambulatory Efrain CORTES Facility:[facility] Start: 11-08-2022 End: 11-08-2022 Patient encounter procedure Efrain CORTES General Surgery [facility] [place] Start: 11-06-2022 End: 11-07-[address] WAQAS PIERCE Facility:[facility]1 Start: 11-05-2022 Encounter for gynecological examination (general) (routine) without abnormal findings DR FRIEDA LOCKE . [facility] Start: 11-03-2022 End: 11-04-[address] WAQAS PIERCE Facility:[facility]1 Start: 10-30-2022 End: 10-31-[address] WAQAS PIERCE Facility:[facility]1 Start: 10-25-2022 End: 10-25-2022 ambulatory Waqas Pierce Other [employer] Other Start: 10-25-2022 Telephone encounter Waqas Pierce [facility] Start: 10-24-2022 End: 10-24-2022 ambulatory Rolando Castellanos Other [employer] Other Start: 10-24-2022 Telephone encounter Rolando Vasquez [facility] Start: 10-23-2022 Office outpatient vi sit 15 minutes Waqas Pierce [facility] Start: 10-23-2022 Telephone encounter Waqas Pierce [facility] Start: 10-23-2022 End: 10-24-2022 ambulatory NON STAFF [facility] Work Phone: Start: 10-23-2022 End: 10-23-2022 Departed Referred [facility] C[facility]-Lab [place] Work Phone: Start: 10-20-2022 End: 10-20-2022 ambulatory Waqas Pierce Other [employer] Other Start: 10-20-2022 Telephone encounter Waqas Pierce [facility] Start: 10-17-2022 End: 10-18-[address] WAQAS PIERCE Facility:H1 Start: 10-13-2022 End: 10-13-2022 ambulatory Rachel Vela Other [employer] Other Start: 10-13-2022 Nutrition therapy Rachel Vela [facility] Start: 10-13-2022 Telephone encounter Rachel Vela [facility] Start: 10-13-2022 Registered Recurring [facility] Ctr-Weight Management Work Phone: Start: 10-10-2022 End: 10-11-[address] WAQAS PIERCE Facility:[facility]1 Start: 10-06-2022 End: 10-06-2022 ambulatory Waqas Piecre Other [employer] Other Start: 10-06-2022 Telephone encounter Waqas Pierce [facility] Start: 10-04-2022 (Procedure) Rayne Mcgowan [facility] Start: 10-04-2022 End: 10-04-2022 ambulatory Junior Mcgowan Other [employer] Other Start: 10-03-2022 End: 10-04-[address] WAQAS PIERCE [employer] Other Start: 10-03-2022 Telephone encounter Junior [facility] [place] Start: 09-27-2022 End: 09-27-2022 ambulatory Junior Mcgowan Other [employer] Other Start: 09-27-2022 Telephone encounter Junior King [facility] Start: 09-19-2022 End: 09-20-[address] WAQAS PIERCE Facility:[facility]1 Start: 09-11-2022 End: 09-12-[address] WAQAS PIERCE Facility:[facility] Start: 09-06-2022 End: 09-06-2022 Patient encounter procedure [facility] Start: 09-06-2022 End: 09-06-2022 ambulatory NON STAFF [facility] Work Phone: Start: 09-06-2022 FQHC visit new patient David Rdz anoop BAUGH [facility] Start: 09-06-2022 End: 09-06-2022 ambulatory KIMBERLY MARJORIE [facility] Start: 08-28-2022 End: 08-29-[address] WAQAS PIERCE Facility:[facility]1 Start: 08-18-2022 Adult health examination Grecia Carrera Other [employer] Other Start: 08-18-2022 Gynecological examination normal Grecia Carrera Other [employer] Other Start: 08-18-2022 End: 08-19-[address] WAQAS PIERCE Facility:[facility] Start: 08-18-2022 End: 08-19-2022 ambulatory AMY KASPER Facility:[facility] Start: 08-11-2022 End: 08-12-2022 ambulatory AMY KASPER Facility:[facility] Start: 08-08-2022 End: 08-09-[address] WAQAS PIERCE Facility:[facility] Start: 08-02-2022 End: 08-03-2022 ambulatory AMY KASPER Facility:[facility] Start: 07-21-2022 End: 07-22-[address] WAQAS PIERCE Facility:[facility] Start: 07-07-2022 End: 07-08-[address] WAQAS PIERCE Facility:[facility] Start: 06-16-2022 End: 06-17-[address] WAQAS PIERCE Facility:[facility] Start: 06-13-2022 End: 06-14-[address] WAQAS PIERCE Facility:[facility] Start: 06-06-2022 End: 06-06-[address] WAQAS PIERCE Facility:[facility] Start: 06-02-2022 End: 06-03-[address] WAQAS PIERCE Facility:[facility] Start: 05-29-2022 End: 05-30-[address] WAQAS PIERCE Facility:[facility] Start: 05-19-2022 End: 05-20-[address] WAQAS PIERCE Facility:[facility] Start: 05-11-2022 End: 05-12-[address] WAQAS PIERCE Facility:[facility] Start: 05-05-2022 End: 05-06-[address] WAQAS PIERCE Facility:[facility] Start: 04-25-2022 End: 04-25-2022 ambulatory ELICEO GIL Miguel Facility:[facility]1 Start: 04-25-2022 Encounter for other preprocedural examination AMY KASPER [facility] Start: 04-24-[address] WAQAS PIERCE Facil ity:H1 Start: 04-22-2022 End: 04-25-2022 Evaluation and management of inpatient SHAIKH Carlos FRITZ Facility:[facility]1 Start: 04-21-2022 End: 04-22-[address] WAQAS PIERCE Facility:[facility] Start: 04-21-2022 End: 04-22-2022 Encounter for other preprocedural examination DR WAQAS PIERCE Facility:[facility] Start: 04-14-2022 End: 04-15-[address] WAQAS PIERCE Facility:[facility] Start: 03-31-2022 End: 04-01-[address] WAQAS PIERCE Facility:[facility] Start: 03-17-2022 End: 03-18-[address] WAQAS PIERCE Facility:[facility] Start: 03-11-2022 End: 03-12-[address] WAQAS PIERCE Facility:[facility] Start: 07-26-2021 Pre-procedure evalua tion check Grecia Carrera Other [employer] Other Start: 07-25-2021 Office outpatient vi sit 15 minutes Mallory Yuen [facility] Start: 06-23-2021 Office outpatient vi sit 25 minutes Junior Mcgowan [employer] [facility] [place] Start: 06-23-2021 Telephone encounter [facility] Start: 12-16-2020 End: 12-17-2020 ambulatory REFERRED SELF Facility:[facility] Procedures Date Procedure Procedure Detail Performing Clinician Start: 10-17-2023 Plain X-ray of right hip Start: 09-03-2023 Plain X-ray of right hip MD Waqas Pierce Work Phone: Start: 09-03-2023 Total replacement of right hip joint MD Waqas Pierce Work Phone: Start: 09-03-2023 Plain X-ray of right hip MD Waqas Pierce Work Phone: Start: 08-28-2023 Antibody screen David Bartolo BAU[facility] Comment on above: Order Comment: Date of Surgery: [id number] Result Comment: PERF ORMED BY: [facility] [place] [address] PATHOLOGIST SECOND HELPER SUAD ARREAGA M.D. Start: 08-28-2023 Urine culture MD Waqas Pierce Work Phone: Start: 08-15-2023 Plain X-ray of right hip MD Waqas Pierce Work Phone: Start: 10-23-2022 Urine culture Start: 09-06-2022 Plain X-ray of right hip Start: 04-24-2022 Excision of Left Tarsal, Open Approach DR WAQAS PIERCE Start: 04-24-2022 Insertion of Tissue Organizational Research Consultant into Left Foot Subcutaneous Tissue and Fascia, Open Approach DR WAQAS PIERCE Start: 04-24-2022 Removal of Internal Fixation Device from Left Tarsal, Open Approach DR WAQAS PIERCE Start: 04-24-2022 Replacement of Left Foot Skin with Nonautologous Tissue Substitute, Full Thickness, External Approach DR WAQAS PIERCE Start: 12-16-2020 ANESTH LOWER ARM SURGERY JUDSON ALTAVA Start: 12-16-2020 Tendon sheath incision DAVID LR Start: 10-01-2020 Varicose veins of left lower limb (disorder) Efrain CORTES Comment on above: procedure Start: 09-08-2020 Esophagogastroduodenoscopy Efrain CORTES Start: 12-04-2016 Laboratory test result abnormal Grecia Fit t Other Arthroplasty Efrain CORTES Comment on above: left hip Bilateral bone spur of calcaneum (disorder) Efrain CORTES Decompression of median nerve Efrain CORTES Comment on above: left wrist Fasciotomy of foot Efrain ARAGON 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 Francis CORTES Inject trigger finger/thumb Efrain CORTES Laboratory test result abnormal Waqas Pierce Other Screening for malign ant neoplasm of breast Grecia Fitt Other Screening for osteoporosis D awn Fitt Other Tonsillectomy and adenoidectomy Efrain CORTES Plan of Treatment Date Care Activity Detail Author Start: 09-03-2023 Hospital admission [facility] Start: 09-03-2023 End: 09-03-2023 [facility] Start: 09-03-2023 Physical therapy procedure [facility] Start: 08-28-2023 [facility] Start: 08-28-2023 Bacteria identified in Urine by Culture [facility] Bacteria identified in Urine by Culture [facility] Immunizations Immunization Date Immunization Notes Care Provider Fa cility 08-31-2022 COVID-19 (Pfizer) Bivalent Booster, Age 12Y+ [facility] 08-31-2022 influenza virus vaccine, unspecified formulation Efrain CORTES [facility] [place] 08-31-2022 SARS-CoV-2 (COVID-19 ) [id number] Efrain CORTES [facility] 02-24-2022 COVID-19 (Pfizer); Translations: [COVID-19 (Pfizer)] MD Waqas Pierce Work Phone: [facility] 02-24-2022 SARS-CoV-2 mRNA (kmnqmknyjrz-[id number] se) vaccine Efrain CORTES [facility] [place] 08-19-2021 COVID-19 (Pfizer) [facility] 08-19-2021 SARS-CoV-2 (COVID-19 ) mRNA BNT-162b2 vax Efrain CORTES [facility] [place] 01-19-2021 COVID-19 (Pfizer) [facility] 01-19-2021 SARS-CoV-2 (COVID-19 ) mRNA BNT-162b2 vax Efrain NILL [facility] [place] 12-31-2020 COVID-19 (Pfizer) [facility] 12-31-2020 SARS-CoV-2 (COVID-19 ) mRNA BNT-162b2 stephie CORTES [facility] [place] 06-25-2020 influenza virus vaccine, split virus (incl. purified surface antigen) Grecia Carrera Other [employer] Other 06-25-2020 pneumococcal polysaccharide vaccine, 23 valent Grecia Carrera Other [employer] Other Payers Date Payer Category Payer Self-pay [id number] Unknown [id number] [id number]7 1962 Unknown [id number] 2.16.840.1.486465.3.579.2.727 1962 Unknown [id number] 2.16.840.1.686187.3.579.2.727 1962 Unknown [id number] 2.16.840.1.472117.3.579.2.593 1962 Unknown [id number] 2.16.840.1.234386.3.579.2.593 1962 Unknown [id number] 2.16.840.1.846232.3.579.2.593 1962 Unknown [id number] 2.16.840.1.055046.3.579.2.593 1962 Unknown [id number] 2.16.840.1.580055.3.579.2.593 1962 Unknown [id number] 2.16.840.1.432663.3.579.2.593 1962 Unknown [id number] 2.16.840.1.395698.3.579.2.593 1962 Unknown [id number] 2.16.840.1.626331.3.579.2.593 1962 Unknown [id number] 2.16.840.1.357474.3.579.2.593 1962 Unknown [id number] 2.16.840.1.687776.3.579.2.593 1962 Unknown [id number] 2.16.840.1.376452.3.579.2.593 1962 Unknown [id number] 2.16.840.1.692174.3.579.2.593 1962 Unknown [id number] 2.16.840.1.062003.3.579.2.593 1962 Unknown [id number] 2.16.840.1.229653.3.579.2.593 1962 Unknown [id number] 2.16.840.1.314535.3.579.2.593 1962 Unknown [id number] 2.16.840.1.843849.3.579.2.593 1962 Unknown [id number] 2.16.840.1.960366.3.579.2.593 1962 Unknown [id number] 2.16.840.1.616277.3.579.2.593 1962 Unknown [id number] 2.16.840.1.005604.3.579.2.593 1962 Unknown [id number] 2.16.840.1.600615.3.579.2.593 1962 Unknown [id number] 2.16.840.1.716609.3.579.2.593 1962 Unknown [id number] 2.16.840.1.821152.3.579.2.593 1962 Unknown [id number] 2.16.840.1.834726.3.579.2.593 1962 Unknown [id number] 2.16.840.1.547992.3.579.2.593 1962 Unknown [id number] 2.16.840.1.981837.3.579.2.593 1962 Unknown [id number] 2.16.840.1.067788.3.579.2.593 1962 Unknown [id number] 2.16.840.1.958404.3.579.2.593 1962 Unknown [id number] 2.16.840.1.711523.3.579.2.593 1962 Unknown [id number] 2.16.840.1.506508.3.579.2.593 1962 Unknown [id number] 2.16.840.1.997610.3.579.2.593 1962 Unknown [id number] 2.16.840.1.933980.3.579.2.593 1962 Unknown [id number] 2.16.840.1.624267.3.579.2.593 1962 Unknown [id number] 2.16.840.1.655823.3.579.2.593 1962 Unknown [id number] 2.16.840.1.626463.3.579.2.593 1962 Unknown [id number] 2.16.840.1.321635.3.579.2.593 1962 Unknown [id number] 2.16.840.1.520452.3.579.2.593 1962 Unknown [id number] 2.16.840.1.445997.3.579.2.593 1962 Unknown [id number] 1960 Unknown [id number] [id number] 1960 Unknown [id number] [id number] 1960 Unknown [id number] 2.16.840.1.050026.3.579.2.593 1962 Unknown [id number] 2.16.840.1.225126.3.579.2.593 1962 Unknown [id number] [id number] 1959 Unknown [id number] 2.16. [id number] 1959 Unknown [id number] Unknown [id number] [id number] Unknown [id number] 2.16.840.1.951551.3.579.2.531 Unknown [id number] 2.16.840.1.733331.3.579.2.531 Unknown [id number] [id number] Unknown [id number] Worker's Compensation [id number] Worker's Compensation [facility] [id number] Social History Date Type Detail Facility Unknown if ever smoked [employer] Other Sex Assigned At [facility] Start: 1960 Sex Assigned At Female F [facility] Start: 11-08-2022 End: 09-03-2023 Tobacco smoking status Ex-smoker (finding) General Surgery Mary Comment on above: smoked one year, souleymane t 30 years ago Tobacco smoking status Never Gener al Surgery Mary Comment on above: smoked one year, souleymane t 30 years ago Medical Equipment Procedure Code Equipment Code Equipment Origin al Text Equipment Identifier Dates Arthroplasty, hip, total, anterior approach Acetabular shell [id number] FDA Start: 09-03-2023 Arthroplasty, hip, total, anterior approach Ceramic femoral head prosthesis ()[id number] FDA Start: 09-03-2023 Arthroplasty, hip, total, anterior approach Coated hip femur prosthesis, modular [id number] FDA Start: 09-03-2023 Arthroplasty, hip, total, anterior approach Non-constrained polyethylene acetabular liner ()[id number] FDA Start: 09-03-2023 Start: 02-13-2023 Goals Date Patient Goal Desired Activity /State Functional Status Date Assessment Result Facility 11-08-2022 Functional Status N/A [facility] Clinical Notes 06-23-2021 to 10-17-2023 Note Date & Type Note Facility 10-17-2023 Evaluation note Encounter Date Diagnosis Assessment Notes Oct, Aftercare following joint replacement surgery (ICD-10 - Z47.1) Oct, Presence of right artificial hip joint (ICD-10 - Z96.641) Oct, Other [facility] at [facility] on 09/03/2023 Doing well Patient may continue increasing activities as tolerated. Continue taking dswu-fvb-kiyhk er anti-inflammat ories as needed for assistance with swelling and pain associated with the operative extremity. Follow-up in 6 weeks for repeat examination and repeat x-rays. [employer] Other 01-15-2024 Evaluation note* Encounter Date Diagnosis Assessment Notes Treatment Notes Treatment Clinical Notes Oct, Obesity (ICD-10 - E66.9) Oct, BMI 40.0-44.9, adult (ICD-10 - Z68.41) Oct, Other Summary of Visi t: (A) Discussed including more vegetables (B) Discussed plant proteins (C) Provided recipes [employer] Other 01-02-2024 Evaluation note* Encounter Date Diagnosis Assessment Notes Treatment Notes Treatment Clinical Notes Oct, Hypothyroidism (ICD-10 - E03.9) [employer] Other 12-20-2023 Evaluation note* Encounter Date Diagnosis Assessment Notes Treatment Notes Treatment Clinical Notes Aug, Aftercare following joint replacement surgery (ICD-10 - Z47.1) Zipline was removed today. Steri strips were applied to incision. Patient may shower and allow steri strips to fall off. She was instructed to continue total hip protocol. She was given an order for physical therapy. Examination and assessment of this patient was performed by Carrie Perea NP and patient will continue with the treatment plan per Dr. Mcfarland, who initiated this treatment plan. Dr. Huffman is present in the office today and providing supervision. Aug, Presence of right artificial hip joint (ICD-10 - Z96.641) [employer] Other 12-19-2023 Evaluation note* Encounter Date Diagnosis Assessment Notes Treatment Notes Treatment Clinical Notes Aug, Prediabetes (ICD-10 - R73.09) Aug, BMI 40.0-44.9, adult (ICD-10 - Z68.41) Aug, Hypothyroidism (ICD-10 - E03.9) Aug, Hypertension (ICD-10 - I10) Aug, Fatty liver (ICD-10 - K76.0) Aug, HERRERA (obstructive sleep apnea) (ICD-10 - G47.33) Aug, Mixed hyperlipidemia (ICD-10 - E78.2) Aug, Depression (ICD-10 - F32.9) Aug, Low back derangement syndrome (ICD-10 - M53.86) Aug, Hip arthritis (ICD-1 0 - M16.10) Aug, Palpitations (ICD-10 - R00.2) Aug, GERD (gastroesophageal reflux disease) (ICD-10 - K21.9) Aug, Metabolic syndrome X (ICD-10 - E88.81) [employer] Other 12-18-2023 Evaluation note* Encounter Date Diagnosis Assessment Notes Treatment Notes Treatment Clinical Notes Aug, Obesity (ICD-10 - E66.9) Aug, BMI 40.0-44.9, adult (ICD-10 - Z68.41) Aug, Other Summary of Visi t: (A) Discussed including more vegetables (B) Answered general nutrition-related questions (C) DIscussed options for including more water [employer] Other 12-01-2023 Evaluation note* Encounter Date Diagnosis Assessment Notes Treatment Notes Treatment Clinical Notes Aug, Other Prolonged Servi rhys 1. H and P date: 08/30/2023 2. Diagnosis: Right hip primary osteoarthritis 3. Counseling: Patient received counseling at their history and physical. 4. Coordination of care: The patient was discussed at today's total joints meeting with anesthesia, OR staff, and implant reps in an effort to coordinate the patient's care during the perioperative period. The anesthesiologist was involved in discussions regarding the patient's pain management such as regional blocks, anesthesia plans the day of surgery such as general versus spinal, as well as a final review of lab work to ensure the patient could proceed with surgery safely. The manager order was vital for surgery timing and scheduling purposes. The implant rep was also available for necessary discussions regarding preoperative templates that were created on preoperative x-rays to ensure the appropriate implants and sizes of implants would be available the day of surgery. The patient's discharge plan was also discussed and the final decision was confirmed. 5. Medication Changes: None 6. Lab Tests: The patient's screening tests including albumin levels, vitamin D levels, hemoglobin, hemoglobin A1c, cotinine serum level, and MRSA nasal cultures were all reviewed to ensure appropriate perioperative care can be performed. This included selection of perioperative antibiotics, surgical dressing, and any contact precautions that may need to be enacted. The patient's presurgical testing lab work was also reviewed. This included a CBC, BMP, UA, fructosamine, and a blood type and screen. This lab work was discussed with anesthesia during today's total joints meeting to ensure the patient could proceed with surgery safely. 7. Review of reports/records: The surgical clearance information provided by the patient's PCP and if deemed necessary, other specialists, was reviewed. Any recommendations made by these care providers were taken into consideration for the patient's perioperative and postoperative treatment plans. Prolonged services time spent: 31 minutes [employer] Other 11-30-2023 Evaluation note* Encounter Date Diagnosis Assessment Notes Treatment Notes Treatment Clinical Notes Aug, Osteoarthritis of right hip (ICD-10 - M16.11) Aug, Other 1. Right EMMA Home Medications - DVT prophylaxis: Aspirin - NSAID: Celebrex - Disposition: Same-day discharge-she has a girlfriend that will be staying with her the night of surgery and then she has another friend across the street this cannot be able to come and stay with her the next morning before physical therapy arrives. Joints Meeting Checklist - Pharmacy: [facility] to bed - Approach/Technique: anterior, Gilson bed - Implants: Avenir Complete/G7; - Anesthesia: general vs spinal - Blocks: Fascia iliaca - Preop Antibiotics: Ancef and Vanco - TXA: yes-systemic - Positioning/OR Bed: supine on Gilson bed - Intraop X-ray: yes - Alejandra: no - Tourniquet: no - Antibiotic powder: yes-2 grams of vanc - Antibiotic cement: no - Dressing: Zipline and Prevena 14-day The patient has tried and failed all conservative treatment options to include: activity modification, physical therapy, oral anti-inflammatories , and intra-articular steroid injections. We will move forward with the definitive treatment option and schedule the patient for the above mentioned procedure. The risks involved with surgery and postoperative complications were discussed in relation to the patient's non-modifiable risk factors including but not limited to the following: History of left foot infection Hypertension Hyperlipidemia GERD Prediabetes Fibromyalgia All questions were answered after discussing these increased risks. The patient voiced understanding of these increased risks and still wishes to proceed with surgery. The risks involved with surgery and postoperative complications were discussed in relation to the patient's modifiable risk factors including but not limited to the following: BMI 39.4-patient has worked to decrease her BMI from 47.9 when we first met All questions were answered after discussing these increased risks. The patient voiced understanding of these increased risks and still wishes to proceed with surgery. The risks and benefits of the surgery were reviewed in depth with the patient, and all questions were answered. Informed consent was obtained. The risks and potential complications of the surgery include, but are not limited to: avascular necrosis, nonunion, nerve injury, blood vessel injury, excessive bleeding, blood transfusion, infection, persistent pain, loss of fixation, failure of the implant, deep vein thrombosis, pulmonary embolus, loss of limb, fracture, leg length discrepancy, and . Patient voiced understanding of these risks and has elected to proceed with the above surgery. OARRS report generated and reviewed. [employer] Other 11-21-2023 Evaluation note* Encounter Date Diagnosis Assessment Notes Treatment Notes Treatment Clinical Notes Aug, Osteoarthritis of right hip (ICD-10 - M16.11) Per Dr. Mcfarland. Aug, Preoperative clearance (ICD-10 - Z01.818) Nicol has successfully lost weight and is a good candidate for total joint replacement. She has a friend that will help her at home. Preoperative labs/testing pending - otherwise cleared for surgery. Aug, Essential (primary) hypertension (ICD-10 - I10) Blood pressure remains well controlled at this time. Denies cardiac symptoms. Shows no signs or symptoms or poor control. Patient to continue with above medication and we will continue to monitor. Advised to pay attention to body and symptoms. Any developing patterns. Stay well hydrated. [employer] Other 11-13-2023 Evaluation note* Encounter Date Diagnosis Assessment Notes Treatment Notes Treatment Clinical Notes Aug, Obesity (ICD-10 - E66.9) Aug, BMI 40.0-44.9, adult (ICD-10 - Z68.41) Aug, Other Summary of Visi t: (A) Continue current regimen (B) Much emotional support provided today (C) Encouraged continued follow up with counselor [employer] Other 10-31-2023 Evaluation note* Encounter Date Diagnosis Assessment Notes Treatment Notes Treatment Clinical Notes Jul, Acute laryngitis (ICD-10 - J04.0) Patient denies bacterial infection symptoms such as fever facial pressure or chills. Patient has not taken a COVID test. Discussed ijfl-kjd-bzkpxca medications to use along with steroid pills that can improve her discomfort and laryngitis going forward. Advised that the steroids could elevate her blood sugar and to be mindful of that accordingly. [employer] Other 10-26-2023 Evaluation note* Encounter Date Diagnosis Assessment Notes Treatment Notes Treatment Clinical Notes Jul, Prediabetes (ICD-10 - R73.09) Jul, BMI 40.0-44.9, adult (ICD-10 - Z68.41) Jul, Hypothyroidism (ICD-10 - E03.9) Jul, Hypertension (ICD-10 - I10) Jul, Fatty liver (ICD-10 - K76.0) Jul, HERRERA (obstructive sleep apnea) (ICD-10 - G47.33) Jul, Mixed hyperlipidemia (ICD-10 - E78.2) Jul, Depression (ICD-10 - F32.9) Jul, Low back derangement syndrome (ICD-10 - M53.86) Jul, Hip arthritis (ICD-1 0 - M16.10) Jul, Palpitations (ICD-10 - R00.2) Jul, GERD (gastroesophageal reflux disease) (ICD-10 - K21.9) Jul, Metabolic syndrome X (ICD-10 - E88.81) [employer] 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 Other 10-23-2023 Evaluation note* Encounter Date Diagnosis Assessment Notes Treatment Notes Treatment Clinical Notes Jul, Obesity (ICD-10 - E66.9) Jul, BMI 40.0-44.9, adult (ICD-10 - Z68.41) Jul, Other Summary of Visi t: (A) Continue current regimen (B) Discussed ways to include more water (C) Discussed ways to include more vegetables [employer] Other [id number] NoteShe admits intermittent orthostasis when she is bending over working in the yard and upon standing she gets lightheaded and dizzy. Denies syncope and admits that she is chronically dehydrated and does not drink enough. 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 female here for Routine F/U Patient here c/o dizziness only with bending over and standing back up. Also c/o feeling a wheeze when lying on her left side. Denies chest pain and increase in SOB w/ exertion. Says sometimes BP goes low, around 96/68, but she does not check it when she gets dizzy. She had routine labs in Oct 2022. Blood sugars have been normal per patient. Denies syncope, recent illness, recent injury or trauma. States that she knows she does not drink enough fluid in a day and is chronically dehydrated. She denies chest pain, orthopnea. Admits typical shortness of breath with exertion, leg swelling and palpitations. Review of Systems Cardiovascular: Positive for dyspnea on exertion and leg swelling. Respiratory: Positive for wheezing. Skin: Positive for poor wound healing. Musculoskeletal: Positive for arthritis, back pain, joint pain, muscle weakness and neck pain. Neurological: Positive for dizziness, headaches, light-headedness and weakness. All other systems reviewed and are negative. Visit Vitals BP 127/87 (BP Location: Left wrist, Patient Position: Sitting) Pulse 88 Ht 1.702 m (5' 7 ) Wt 120 kg (264 lb) SpO2 99% BMI 41.35 kg/m??? Smoking Status Former BSA 2.38 m??? Allergies Allergen Reactions Duloxetine Metformin Penicillins Medications: Current Outpatient Medications on File Prior to Visit Medication Sig Dispense Refill atorvastatin (Lipitor) 20 mg tablet atorvastatin 20 mg tablet TAKE 1 TABLET BY MOUTH DAILY diclofenac (Voltaren) 75 mg EC tablet diclofenac sodium 75 mg tablet,delayed release TAKE 1 TABLET BY MOUTH TWICE DAILY ergocalciferol, vitamin D2, (VITAMIN D2 ORAL) Take by mouth. levothyroxine (Synthroid, Levoxyl) 50 mcg tablet TAKE 1 TABLET BY MOUTH IN THE MORNING ON AN EMPTY STOMACH metoprolol succinate XL (Toprol-XL) 25 mg 24 hr tablet TAKE 1 TABLET BY MOUTH ONCE DAILY 90 tablet 1 pantoprazole (ProtoNix) 40 mg EC tablet pantoprazole 40 mg tablet,delayed release TAKE 1 TABLET BY MOUTH DAILY tirzepatide (Mounjaro) 2.5 mg/0.5 mL pen injector as directed Subcutaneous aspirin 325 mg tablet in the morning. baclofen (Lioresal) 10 mg tablet baclofen 10 mg tablet TAKE 1 TABLET BY MOUTH TWICE DAILY NEEDED HYDROcodone-acetaminophen ([place]) 5-325 mg tablet hydrocodone 5 mg-acetaminophen 325 mg tablet TAKE 1 TABLET BY MOUTH EVERY 4 TO 6 HOURS NEEDED FOR PAIN (Max OF EIGHT TABLETS in 24 HOURS) linezolid (Zyvox) 600 mg tablet linezolid 600 mg tablet TAKE 1 TABLET BY MOUTH TWICE DAILY magnesium oxide 400 mg magnesium capsule 1 capsule in the morning. omeprazole OTC (PriLOSEC OTC) 20 mg EC tablet in the morning. oxyCODONE (Roxicodone) 5 mg immediate release tablet Take 5 mg by mouth every 6 (six) hours if needed. No current facility-administered medications on file prior to visit. Physical Exam: Constitutional: Appearance: Normal appearance. Without apparent distress, obese HENT: Head: Normocephalic and atraumatic. Nose: Nose normal. Mouth/Throat: Mouth: Mucous membranes are moist. Eyes: Extraocular Movements: Extraocular movements intact. Conjunctiva/sclera: Conjunctivae normal. Neck: Vascular: No JVD. Cardiovascular: Rate and Rhythm: Normal rate and regular rhythm. Pulses: Dorsalis pedis pulses are 3 on the right side and 3on the left side. Posterior tibial pulses are 3 on the right side and 3 on the left side. Heart sounds: Normal heart sounds, S1 normal and S2 normal. Pulmonary: Effort: Pulmonary effort is normal. Breath sounds: Normal breath sounds. Abdominal: General: Bowel sounds are normal. Palpations: Abdomen is soft. Musculoskeletal: General: Normal range of motion. Cervical back: Normal range of motion. Right lower leg: No edema. Left lower leg: No edema. Skin: General: Skin is warm and dry. Capillary Refill: Capillary refill takes less than 2 seconds. Neurological: General: No focal deficit present. Mental Status: She is alert and oriented to person, place, and time. Psychiatric: Mood and Affect: Mood normal. Behavior: Behavior normal. Thought Content: Thought content normal. Judgment: Judgment normal. Labs: 10/30/22 BUN 20, CR 0.86- normal K+ normal LFT- normal Chol 185, HDL 56, trig 222, LDL 84.6- stable TSH 6.415- elevated Last lab values have been reviewed CV Testin12/27/21 Echo No echocardiogram results found for the past 12 months Assessment/Plan: Hyperlipidemia Continue atorvastatin 20 mg Liver function normal, cholesterol and LDL levels well controlled in light she does not have CAD. 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 Orthostasis She admits intermittent orthostasis when she is bending over working in the yard and upon standing she gets lightheaded an (more content not included)... [facility]10-16-2023 NotePatient here c/o dizziness only with bending over and standing back up. Also c/o feeling a wheeze when lying on her left side. Denies chest pain and increase in SOB w/ exertion. Says sometimes BP goes low, around 96/68, but she does not check it when she gets dizzy. She had routine labs in Oct 2022. Blood sugars have been normal per patient. Review of Systems Cardiovascular: Positive for dyspnea on exertion and leg swelling. Respiratory: Positive for wheezing. Skin: Positive for poor wound healing. Musculoskeletal: Positive for arthritis, back pain, joint pain, muscle weakness and neck pain. Neurological: Positive for dizziness, headaches, light-headedness and weakness. All other systems reviewed and are negative.[facility] 06-27-2023 Evaluation note* Encounter Date Diagnosis Assessment Notes Treatment Notes Treatment Clinical Notes Jun, Primary osteoarthritis of right hip (ICD-10 - M16.11) Jun, Fibromyalgia (ICD-10 - M79.7) Jun, Other 1. We had a yuli g discussion with the patient today concerning their right hip osteoarthritis. The radiographs do show osteoarthritis of the hip. At this time the patient would like to avoid surgical intervention. We did discuss the risk and benefits of surgical versus nonoperative management. The patient would like to proceed with nonoperative management. We discussed that our options include injections, physical therapy, and the consistent use of anti-inflammatories. All 3 of these options, including their risks and benefits, were discussed at length with the patient. 2. Tylenol: Discussed taking Tylenol (acetaminophen). Recommended adjusting their dosing to 1000mg by mouth up to 3 times a day. 3. NSAIDs: Recommend continuing oral anti-inflammatories and even Voltaren gel. 4. Physical therapy: Discussed formal physical therapy and home regimen. Patient preferred no PT at this time. 5. Injections: Discussed injections as a treatment option. Patient has not had much success with intra-articular hip injections and therefore she does not want to proceed with any further at this time 6. BMI 41.9-we discussed her elevated risk of infection especially not only because of her BMI but her specific body habitus make a with an anterior hip approach. We also discussed the fact that she had a long-term infection in her left foot which did lead to infection and her blood. As I explained that in itself would also increase her risk of infection in her right hip after a total hip arthroplasty. As a result, she would like to do what ever she can to decrease her risk of infection. At this point we will get a work to get her BMI less than 40. We discussed shooting for a goal of 250 pounds which I feel would get her to a BMI of 39.2 7. Follow-up on a as needed basis as the patient works on weight loss management. [employer] Other 09-18-2023 Evaluation note* Encounter Date Diagnosis Assessment Notes Treatment Notes Treatment Clinical Notes Jun, Obesity (ICD-10 - E66.9) 18 Jun, 2023 BMI 40.0-44.9, adult (ICD-10 - Z68.41) Jun, Other Summary of Visi t: (A) Discussed quick, low prep veggie ideas (B) Plan ahead for busy days (C) Keep meal ideas available GOALS: Write meal ideas on index cards Have go-to fast food meals available that fit the plate method [employer] Other 09-14-2023 Evaluation note* Encounter Date Diagnosis Assessment Notes Treatment Notes Treatment Clinical Notes Jun, Prediabetes (ICD-10 - R73.09) Jun, BMI 40.0-44.9, adult (ICD-10 - Z68.41) Jun, Hypothyroidism (ICD-10 - E03.9) 14 Jun, 2023 Hypertension (ICD-10 - I10) Jun, Fatty liver (ICD-10 - K76.0) Jun, HERRERA (obstructive sleep apnea) (ICD-10 - G47.33) Jun, Mixed hyperlipidemia (ICD-10 - E78.2) 14 Jun, 2023 Depression (ICD-10 - F32.9) Jun, Low back derangement syndrome (ICD-10 - M53.86) Jun, Hip arthritis (ICD-1 0 - M16.10) 14 Jun, 2023 Palpitations (ICD-10 - R00.2) Jun, GERD (gastroesophageal reflux disease) (ICD-10 - K21.9) Jun, Metabolic syndrome X (ICD-10 - E88.81) [employer] Other 09-11-2023 Evaluation note* Encounter Date Diagnosis Assessment Notes Treatment Notes Treatment Clinical Notes Jun, Well adult exam (ICD-10 - Z00.00) We have discussed the necessity of following up with PCP regularly as well as specialists, as needed. Discussed F/U with dentistry and optometry at least yearly. Discussed all preventative measures/ cancer screenings as applicable to this patient. Emphasized the importance of a reduced fat, low carb diet to promote heart health and controlled blood sugars. Reviewed social history and ensured patient is safe within the home today. Pt denies any abuse of alcohol, nicotine, caffeine or recreational drugs. I have ensured patient is of stable mental and physical health today. We have discussed appropriate F/U schedule as well as blood work and vaccinations that apply. All questions answered and patient is sent home pleased, without concerns. Jun, Vitamin D deficiency (ICD-10 - E55.9) discussed supplementation. will check D level. [employer] Other 08-28-2023 Evaluation note* Encounter Date Diagnosis Assessment Notes Treatment Notes Treatment Clinical Notes May, Hypothyroidism (ICD-10 - E03.9) [employer] Other 08-14-2023 Evaluation note* Encounter Date Diagnosis Assessment Notes Treatment Notes Treatment Clinical Notes May, Obesity (ICD-10 - E66.9) May, BMI 40.0-44.9, adult (ICD-10 - Z68.41) May, Other Summary of Visi t: (A) Discussed cooking various foods (B) Find control in indulgences (C) Reviewed the plate method [employer] Other 07-17-2023 Evaluation note* Encounter Date Diagnosis Assessment Notes Treatment Notes Treatment Clinical Notes Mar, Obesity (ICD-10 - E66.9) Mar, BMI 40.0-44.9, adult (ICD-10 - Z68.41) Mar, Other Summary of Visi t: (A) Discussed cooking various foods (B) Find control in indulgences (C) emphasize self-care [employer] Other 05-17-2023 NotePROCEDURE: XR FOOT LT MIN 3 VIEWS HISTORY: Pain in left foot COMPARISON: XR foot left 09/19/2022 FINDINGS: BONES:Subtalar fusion via 3 lag screws; no appreciable hardware fracture loosening. Wedge placement within the first tarsal-metatarsal joint. Diffuse osteopenia throughout the foot, moderate degenerative changes of the midfoot.. No fracture or dislocation. SOFT TISSUES:Mild soft tissue swelling, less than previously seen. EFFUSION:None visible. OTHER: Negative. IMPRESSION: 1. Stable surgical changes without evidence of hardware failure or change in alignment. 2. No appreciable acute bone abnormality. Electronically authenticated by: ARIELA SCHWAB Date: 2023-02-14 06:48[facility]04-13-2023 Evaluation note* Encounter Date Diagnosis Assessment Notes Treatment Notes Treatment Clinical Notes Dec, Obesity (ICD-10 - E66.9) Dec, BMI 45.0-49.9, adult (ICD-10 - Z68.42) Dec, Other Summary of Visi t: (A) Extensively discussed the plate method (B) Answered general, nutrition-related questions (C) Emphasized small, manageable changes Patient set the following goals: 1. Drink at least 2 bottles of water/day; increase to 3 when comfortable 2. Increase veggies, follow the plate method [employer] Other 03-14-2023 Evaluation note* Encounter Date Diagnosis Assessment Notes Treatment Notes Treatment Clinical Notes Nov, Abnormal laboratory test result (ICD-10 - R89.9) [employer] Other 03-08-2023 NoteOPERATIVE NOTE OPERATION DATE: 12/06/2022 PREOPERATIVE DIAGNOSIS: Colorectal screening. POSTOPERATIVE DIAGNOSIS: Normal colonoscopy to cecum PROCEDURE: Colonoscopy to cecum. SURGEON: Efrain Cortes M.D. ANESTHESIA: Monitored anesthesia care. ESTIMATED BLOOD LOSS: Zero. INDICATIONS AND CONSENT: Patient is a 65-year-old female presents for colorectal screening. Indications, risks, benefits, alternatives of proceeding with colonoscopy were explained extensively to the patient, including the risks of bleeding, colon perforation or anesthetic complications. All of her questions were answered. Informed consent was obtained. PROCEDURE: Patient brought to the operating room, placed in the left lateral decubitus position. Monitored anesthesia care was provided. Rectal exam was performed which showed no masses or blood. The scope was inserted into the anal canal. Under direct visualization was advanced. With the aid of abdominal compression, it was advanced to the cecum where cecal markings were clearly identified. There was noted to be a good prep. Upon withdrawal of the scope, mucosal surfaces were carefully examined. There were no mass lesions or polyps. No inflammatory changes or ulcerations. No significant diverticulosis. The scope was retroflexed in the anal canal. There were some prominent rectal veins, no significant hemorrhoidal disease. Scope was then withdrawn. Patient tolerated procedure well, was sent to recovery room in good condition. Follow up screening colonoscopy should be in 10 years. CC: Waqas Pierce M.D.[facility] [id number] Evaluation note* Encounter Date Diagnosis Assessment Notes Treatment Notes Treatment Clinical Notes Nov, Prediabetes (ICD-10 - R73.09) Nov, Abnormal thyroid blood test (ICD-10 - R79.89) Nov, Fatty liver (ICD-10 - K76.0) Nov, HERRERA (obstructive sleep apnea) (ICD-10 - G47.33) Nov, Depression (ICD-10 - F32.9) Nov, Mixed hyperlipidemia (ICD-10 - E78.2) Nov, Low back derangement syndrome (ICD-10 - M53.86) Nov, Palpitations (ICD-10 - R00.2) Nov, GERD (gastroesophageal reflux disease) (ICD-10 - K21.9) Nov, Metabolic syndrome X (ICD-10 - E88.81) Nov, Hip arthritis (ICD-1 0 - M16.10) Nov, Hypertension (ICD-10 - I10) [employer] Other 02-14-2023 Evaluation note* Encounter Date Diagnosis Assessment Notes Treatment Notes Treatment Clinical Notes Nov, Obesity, unspecified classification, unspecified obesity type, unspecified whether serious comorbidity present (ICD-10 - E66.9) Nov, BMI 45.0-49.9, adult (ICD-10 - Z68.42) Nov, Other Summary of Visi t: (A) Presentation of Plate Method discussed (B) Sample meal ideas reviewed (C) exercise recommendations reviewed Patient set the following goals: - patient set personal goal using given handout. [employer] Other 02-08-2023 NoteChief Complaint consultation for colonoscopy HPI Staff 62 year old female presents on self referral consultation for screening colonoscopy. Denies abdominal or rectal pain. No rectal bleeding or change in bowel habits. Denies nausea or vomiting. No unexplained weight loss. Last colonoscopy completed 06/2012- normal. No known family history of colon cancer. History of Present Illness 62 yo female with h/o hyperlipidemia, hyperthyroidism, GERD, referred for colorectal screening; denies change in bms or blood in stools; no abdominal complaints; denies asa or NSAID use, no SBE prophylaxis; no previous abdominal operations, last colonoscopy 2011, wnl; no fmhx of GI malignancy or IBD; no tobacco use. Review of Systems PHQ Score Initial Depression Screen Score: 0 ROS - Provider Constitutional: no fever, no sweats, no weight loss. Eyes: no glasses, no blurred vision, no visual loss. ENMT: no dentures, no hoarseness, no swallowing difficulties, no hearing loss, no ear infection(s),no nose bleeds. Cardiovascular: normal blood pressure, no chest pain, regular heartbeat, no heart murmur. Respiratory: no shortness of breath, no cough, no asthma, no wheezing. Gastrointestinal: no nausea, no vomiting, no diarrhea, no constipation, no blood in stool, no change in bowel habits, no abdominal pain, no hepatitis. Genitourinary: no kidney stones, no urine infection, no dysuria. Musculoskeletal: no pain, no weakness. Skin: no changing moles, no rash, no skin lumps. Neurologic: no seizures, no epilepsy, no headache. Psychiatric: no emotional or psychiatric problem. Heme/Lymph: no bleeding problems, no anemia, no blood clots, no transfusions. Allergy/Immunologic: no swollen lymph nodes/glands, no IV drug abuse. Other: Additional ROS info: Except as noted in the above Review of Systems and in the History of Present Illness, all other systems have been reviewed and are negative or noncontributory. Physical Exam Vitals & Measurements HR: 80(Peripheral) RR: 16 BP: 118/74 HT: 68 in HT: 172.72 cm WT: 136 kg WT: 299.2 lb BMI: 45.59 HEENT: normal conjunctiva, sclera clear, no scleral icterus, EOM intact, PERRLA, oral mucosa moist without lesions. Neck: trachea midline, no mass, symmetric, no thyromegaly or nodules, no adenopathy Respiratory: lungs CTA, respirations non labored. Cardiovascular: regular rate and rhythm, no murmur, no pedal edema or varicosities. Gastrointestinal: obese, soft, non distended, no tenderness, no masses, no palpable hernias, diastasis recti no, no hepatosplenomegaly; normal bs Lymphatic: no cervical adenopathy, no supraclavicular adenopathy Musculoskeletal: normal gait, digits and nails without infection, nodes, cyanosis, clubbing. Skin: no rashes, no lesions, no ulcers, no subcutaneous nodules, induration. Psychiatric/Neuro: oriented to time, place, person, judgement normal, affect appropriate for age, insight intact, no focal deficits. Tests: labs reviewed, x-rays reviewed, review of old records completed, Discussed surgical options, risks, and possible complications with patient. Assessment/Plan 1. Screening for malignant neoplasm of colon (Z12.11: Encounter for screening for malignant neoplasm of colon) plan colonoscopy under anesthesia, informed consent obtained. 2. BMI 45.0-49.9, adult (Z68.42: Body mass index [BMI] 45.0-49.9, adult) recommend diet and exercise. Follow-up No qualifying data available Problem List/Past Medical History Ongoing Allergic rhinitis Antral gastritis BMI 45.0-49.9, adult BMI 45.0-49.9, adult Chronic antral gastritis GERD (gastroesophageal reflux disease) Hiatal hernia with GERD History of rectal bleeding Hyperlipidemia Hyperthyroidism Postmenopausal Pulmonary nodule Regurgitation of food Screening for malignant neoplasm of colon Historical No qualifying data Procedure/Surgical History Varicose veins of left leg (10/01/2020), EGD - Esophagogastroduodenoscopy (09/08/2020), Arthroplasty, Bilateral bone spur of calcaneum, Carpal tunnel release, 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, Inject trigger finger/thumb, Plantar fasciotomy, Tonsillectomy and adenoidectomy. Medications atorvastatin 20 mg Tab, 20 mg= 1 tab(s), Oral, Daily Diclofenac 75mg Tab-DR, 75 mg, Oral, BID High Potency Probiotic, 1 tab(s), Oral, Daily metoprolol 25 mg ER Tab, 25 mg= 1 tab(s), Oral, Daily pregabalin 75 mg Cap, 75 mg= 1 cap(s), Oral, BID Protonix 40 mg Tab-DR, 40 mg= 1 tab(s), Oral, Daily Vitamin D3 1000 intl units oral tablet, 1000 International_Unit= 1 tab(s), Oral, Daily Allergies Cymbalta (Vision impairment level) metFORMIN (Abdominal lump) penicillin (Rash) Social History Alcohol - Denies Alcohol Use, 08/18/2020 Substance Abuse - Denies Substance Abuse, 08/18/2020 Tobacco Former smoker, quit more than 30 days ago Tobacco Use:. Never Smokeless Tobacco Use:. Cigarettes, 0.25 per day. Started age 20.0 Years. Stopped age 23 Years., 11/08/2022 Family History (more content not included)...[facility]:Result Comment: Electronically Signed By: SOPHIA PINEDA, Efrain Layne\Date and Time Signed: 11/08/22 15:29 [id number] Evaluation note* Encounter Date Diagnosis Assessment Notes Treatment Notes Treatment Clinical Notes Oct, Mixed stress and urg e urinary incontinence (ICD-10 - N39.46) Oct, Obesity (ICD-10 - E66.9) Reviewed notes from Dr. Castellanos. Pt continues to attempt weight loss to prepare for future orthopedic surgeries. Oct, Depression (ICD-10 - F32.9) Pt has a lot of medical stressors and states she does have some depression. Discussed stress relief and positivity. Declines rx. Oct, Hyperlipidemia (ICD-10 - E78.5) will recheck later this year Oct, HERRERA (obstructive sleep apnea) (ICD-10 - G47.33) presently compliant with machine, etc [employer] Other 01-13-2023 Evaluation note* Encounter Date Diagnosis Assessment Notes Treatment Notes Treatment Clinical Notes Oct, Obesity (ICD-10 - E66.9) Findings consistent with obesity. Patient understands that this increases risk of multiple comorbidities associated with weight gain especially if there is a genetic predisposition. Discussed the complexity behind obesity and its multifactorial causes including genetics, the biological changes that occur with processed foods as well as lack of physical activity. We will assess for underlying causes of abnormal weight gain including thyroid dysfunction, poor sleep, medications, diet, etc. Discussed importance of adopting a healthier lifestyle in order to decrease or eliminate risk of impending diseases associated with excessive weight. initial goal of modest weight loss approximately 3 to 5% can help to improve risk factors and some comorbidities. Our second goal of 10 to 15% weight loss can result in even more potentially disease modifying, remission or improved mortality benefits. We discussed initial goals of connecting with dietitian Patient is interested in meeting with our sawmill or timber yard worker, telephone encounter started to connect with her She has an allergy to metformin having severe gastrointestinal pain previously. Praised patient for stopping her Mountain Dew habit and explained the importance of such Likely that patient's oversleeping is likely due to her depression. Strongly encouraged her to meet with a psychiatric provider or at least discuss this with her PCP. She does have a history of bipolar in the family although she has not been formally diagnosed herself. We would use caution with Wellbutrin but this could be a consideration for both weight loss and mood. We discussed incorporating healthier options into her daily planning. 5-minute, 10-minute meals and other quick meal handouts given to patient to get her started until she can see dietitian Follow-up with Dr. Castellanos in 4 weeks Oct, Fatty liver (ICD-10 - K76.0) Patient has previous diagnosis of fatty liver disease. Discussed etiology. Treat with decreasing the simple sweets, added sugars, refined starches and bad fats. Encouraged increased activity and exercise and continue long-term weight loss goals. Oct, Other chronic pain (ICD-10 - G89.29) Oct, Daytime sleepiness (ICD-10 - R40.0) Encouraged good sleep hygiene by going to bed at approximately the same time each night and similar waking hours each day, not eating too close to bedtime, avoid excessive fluids and eating shortly before bed, turning off blue light on phone/computers, silencing notifications, etc. Fatigue during the day could also be related to blood sugar spikes and subsequent crashes related to poor dietary habits of high glucose or high carbohydrate meals and snacks. Increase water intake. Oct, Depression (ICD-10 - F32.9) PHQ-9 is positive for moderate depression with a score of 12 entering the program. She does not currently see a provider or take any medication for this.. Patient states mood is stable overall today and denies any significant mood swings or depressive thoughts. We would use extreme caution or avoid medications for weight loss including Qsymia, phentermine due to possibility of worsening depression. Discussed this with patient when evaluating for appropriate medication. Oct, Hypertension (ICD-10 - I10) Patient has history of hypertension. Blood pressure reading within normal limits today. Treat with low-salt diet, decreased processed and restaurant foods, healthy lifestyle changes and achieve long-term weight loss. Encouraged to monitor outside of the office setting. Encouraged to work with dietitian closely for both weight loss and hypertension focused diet. We discussed how just 5 to 10% modest weight loss can help improve blood pressure. Treat with weight loss and goal of decreasing or eliminating BP medications as appropriate. Oct, Prediabetes (ICD-10 - R73.09) Patient meets criteria for prediabetes with A1c of 5.9 in office today and elevated fasting glucose. First-line treatment with long-term healthy lifestyle change, decrease simple sweets and refined starches, increased exercise and activity and continue with long-term weight loss goals. Will need close long-term follow-up for this condition to prevent diabetes. Consider metformin or GLP-1 agonist. Oct, GERD (gastroesophageal reflux disease) (ICD-10 - K21.9) Patient does suffer from GERD likely related to increased weight especially central obesity. Treat with weight loss and dietary changes. With weight loss patient could achieve complete relief from GERD symptoms due to increased intraabdominal pressure with the goal of being weaned off of medication. Patient to work closely with dietitian to help make healthy dietary choices and avoid reflux inducing foods. Briefly discussed these including avoiding citrus, high fat dairy, high fat meats and beverages including alcohol and coffee. Oct, Hyperlipidemia (ICD-10 - E78.5) Oct, Migraine (ICD-10 - G43.909) Oct, Arrhythmia (ICD-10 - I49.9) Oct, HERRERA (obstructive sleep apnea) (ICD-10 - G47.33) Patient has had sleep study and diagnosis of sleep apnea with compliance of CPAP. Patient understands that sleep apnea significantly increases risk of cardiac issues as well as hypertension, daytime fatigue and brain fog among others. Educated that CPAP compliance is of utmost importance to help prevent related comorbidities. Treat with weight loss with a goal of no longer needing a CPAP device. Oct, Back pain (ICD-10 - M54.9) Oct, Arthritis of foot (ICD-10 - M19.079) Patient admits to arthritis pain pain likely exacerbated/second lynne to increased weight. Treat with exercise incorporating low impact exercises or modifications as needed. Advised to that there are multiple different exercise programs available many of which can be done within the home that required little to no impact. Encouraged swimming as feasible. Slowly increase activity over time to reach goal of 30 minutes most days of the week. Encouraged to take advantage of sawmill or timber yard worker available at [facility] that can help work around limitations. She is open to meeting with our sawmill or timber yard worker for guidance on exercises she can complete with her severe limitations from her foot, hip and back. Telephone encounter started. Oct, Plantar fasciitis (ICD-10 - M72.2) Oct, Arthritis of hip (ICD-10 - M16.10) Oct, Impaired fasting glucose (ICD-10 - R73.01) [employer] Other 12-07-2022 Evaluation note* Encounter Date Diagnosis Assessment Notes Treatment Notes Treatment Clinical Notes Aug, Right hip pain (ICD-10 - M25.551) Aug, Other 1. We had a yuli g discussion with the patient today concerning their right hip osteoarthritis. The radiographs do show osteoarthritis of the hip. At this point in time the patient does have clinical symptoms consistent with greater trochanteric bursitis and hip osteoarthritis. Given her elevated BMI I would not recommend any surgical intervention at this time. Furthermore, given what she is going through with her left foot that would all need to be resolved prior to even considering surgical intervention in my hands. As a result, I would recommend continued conservative treatment. The fact that she is already done diclofenac and Tylenol I would then recommend a right hip intra-articular steroid injection by Dr. Mcgowan. 2. Tylenol: Discussed taking Tylenol (acetaminophen). Recommended adjusting their dosing to 1000mg by mouth up to 3 times a day. 3. NSAIDs: Recommended continuing her diclofenac 4. Physical therapy: We discussed formal outpatient physical therapy but because the patient is getting home health nursing for her wound care we will need to adjust her home health plans so that she can get some therapy for her greater trochanteric bursitis as well. When she is completed with her home health nursing for her left foot, we can transition to outpatient physical therapy. 5. Injections: Discussed injections as a treatment option. We will get the patient set up with Dr Suraj Mcgowan for a right hip intra-articular corticosteroid injection. 6. BMI 45.5-we discussed at length today that with a BMI above 40 she would be at significant increased risk of complications after a hip replacement surgery. As a result, I recommended referral to Dr. Castellanos for weight loss management. Patient agreed. Referral was sent. 7. Follow-up as needed. I think the patient right now will be best served with pain management for her hip arthritis and greater trochanteric bursitis while she works on her weight loss. [employer] Other 12-07-2022 NoteUTP CARDIOLOGY PROGRESS NOTE HPI: Nicol Smith is a 62 y.o. female here for palpitations and tachycardia. Denied chest pain, shortness of breath, orthopnea, and states palpitations have been well controlled with metoprolol. Review of Systems Respiratory: Negative for chest tightness and shortness of breath. Cardiovascular: Positive for palpitations. States palpitations are well controlled with metoprolol All other systems reviewed and are negative. Visit Vitals BP 112/80 Pulse 82 Wt 132 kg (290 lb) SpO2 (!) 85% BMI 45.42 kg/m??? Smoking Status Former BSA 2.5 m??? Allergies Allergen Reactions Duloxetine Metformin Penicillins Medications: Current Outpatient Medications on File Prior to Visit Medication Sig Dispense Refill aspirin 325 mg tablet in the morning. atorvastatin (Lipitor) 20 mg tablet atorvastatin 20 mg tablet TAKE 1 TABLET BY MOUTH DAILY baclofen (Lioresal) 10 mg tablet baclofen 10 mg tablet TAKE 1 TABLET BY MOUTH TWICE DAILY NEEDED diclofenac (Voltaren) 75 mg EC tablet diclofenac sodium 75 mg tablet,delayed release TAKE 1 TABLET BY MOUTH TWICE DAILY HYDROcodone-acetaminophen ([place]) 5-325 mg tablet hydrocodone 5 mg-acetaminophen 325 mg tablet TAKE 1 TABLET BY MOUTH EVERY 4 TO 6 HOURS NEEDED FOR PAIN (Max OF EIGHT TABLETS in 24 HOURS) linezolid (Zyvox) 600 mg tablet linezolid 600 mg tablet TAKE 1 TABLET BY MOUTH TWICE DAILY magnesium oxide 400 mg magnesium capsule 1 capsule in the morning. oxyCODONE (Roxicodone) 5 mg immediate release tablet Take 5 mg by mouth every 6 (six) hours if needed. pantoprazole (ProtoNix) 40 mg EC tablet pantoprazole 40 mg tablet,delayed release TAKE 1 TABLET BY MOUTH DAILY [DISCONTINUED] metoprolol succinate XL (Toprol-XL) 25 mg 24 hr tablet metoprolol succinate ER 25 mg tablet,extended release 24 hr TAKE 1 TABLET BY MOUTH ONCE DAILY omeprazole OTC (PriLOSEC OTC) 20 mg EC tablet in the morning. No current facility-administered medications on file prior to visit. Physical Exam: Constitutional: Appearance: Normal appearance. Without apparent distress, obese, chronically ill HENT: Head: Normocephalic and atraumatic. Nose: Nose normal. Mouth/Throat: Mouth: Mucous membranes are moist. Eyes: Extraocular Movements: Extraocular movements intact. Conjunctiva/sclera: Conjunctivae normal. Neck: Vascular: No JVD. Cardiovascular: Rate and Rhythm: Normal rate and regular rhythm. Pulses: Dorsalis pedis pulses are 3 on the right side and 3on the left side. Posterior tibial pulses are 3 on the right side and 3 on the left side. Heart sounds: Normal heart sounds, S1 normal and S2 normal. Pulmonary: Effort: Pulmonary effort is normal. Breath sounds: Normal breath sounds. Abdominal: General: Bowel sounds are normal. Palpations: Abdomen is soft. Musculoskeletal: General: Normal range of motion. Cervical back: Normal range of motion. Right lower leg: No edema. Left lower leg: No edema. Skin: General: Skin is warm and dry. Capillary Refill: Capillary refill takes less than 2 seconds. Neurological: General: No focal deficit present. Mental Status: She is alert and oriented to person, place, and time. Psychiatric: Mood and Affect: Mood normal. Behavior: Behavior normal. Thought Content: Thought content normal. Judgment: Judgment normal. Labs: 12/02/21 CBC normal Staff will check with PCP for any labs this year Last lab values have been reviewed CV Testin12/27/21 Echo Assessment/Plan: Tachycardia Continue toprol Palpitations Continue toprol Hyperlipidemia Continue lipitor Pt requests to f/U with PCP and return to cardiology as needed. This is reasonable.[facility]12-07-2022 NoteContinue lipitor [facility]12-07-2022 NoteContinue [facility]lUn[facility] NoteContinue [facility] cannonUnHenry [facility]11-18-2022 NotePROCEDURE: XR HIP RT 2 3V WO PELVIS COMPARISON: None. HISTORY: Pain in right hip joint FINDINGS: BONES:No acute fracture or dislocation. Shallow right acetabulum. Moderate to severe osteoarthropathy with joint space narrowing and marginal osteophyte formation SOFT TISSUES:Negative. No visible soft tissue swelling. EFFUSION:None visible. OTHER: Negative. IMPRESSION: Moderate to severe osteoarthritis with shallow acetabulum Electronically authenticated by: SHAWNEE KELLY Date: 2022-08-18 15:54[facility]11-18-2022 NotePROCEDURE: XR FOOT LT MIN 3 VIEWS COMPARISON: 06/16/2022 HISTORY: Pain in left foot FINDINGS: BONES:Stable postsurgical changes with subtalar fusion. Fusion of the medial foot extending from the medial cuneiform through the navicular into the talus. Wedge spacer first tarsometatarsal joint. Moderate diffuse degenerative changes with joint space narrowing and marginal osteophyte formation. Marked permeative pattern with cortical thinning SOFT TISSUES:Negative. No visible soft tissue swelling. EFFUSION:None visible. OTHER: Negative. IMPRESSION: Stable postsurgical and degenerative changes Severe osteopenia Electronically authenticated by: SHAWNEE KELLY Date: 2022-08-18 15:42[place] [facility] NotePROCEDURE: XR FOOT LT MIN 3 VIEWS, XR ANKLE LT 2V COMPARISON: 05/11/2022 HISTORY: Pain in left foot FINDINGS: BONES:Postoperative changes with subtalar fusion utilizing 2 cannulated screws. Talonavicular fusion with a single screw placement of a spacer at the first tarsometatarsal joint. Marked permeative pattern and cortical thinning consistent with osteopenia. SOFT TISSUES:Moderate soft tissue swelling. There appears to be a soft tissue defect along the dorsal midfoot. EFFUSION:None visible. OTHER: Negative. IMPRESSION: Stable postsurgical changes with marked osteopenia Electronically authenticated by: SHAWNEE KELLY Date: 2022-06-16 16:24[facility]09-16-2022 NotePROCEDURE: XR FOOT LT MIN 3 VIEWS, XR ANKLE LT 2V COMPARISON: 05/11/2022 HISTORY: Pain in left foot FINDINGS: BONES:Postoperative changes with subtalar fusion utilizing 2 cannulated screws. Talonavicular fusion with a single screw placement of a spacer at the first tarsometatarsal joint. Marked permeative pattern and cortical thinning consistent with osteopenia. SOFT TISSUES:Moderate soft tissue swelling. There appears to be a soft tissue defect along the dorsal midfoot. EFFUSION:None visible. OTHER: Negative. IMPRESSION: Stable postsurgical changes with marked osteopenia Electronically authenticated by: SHAWNEE KELLY Date: 2022-06-16 16:24[facility]08-11-2022 NotePROCEDURE: XR FOOT LT MIN 3 VIEWS COMPARISON: 04/24/2022 HISTORY: Pain in left foot FINDINGS: BONES:Stable postsurgical changes with subtalar fusion, medial midfoot hindfoot fusion and spacer at the first tarsometatarsal joint. No mechanical failure. Severe degenerative changes. SOFT TISSUES:Extensive soft tissue swelling.Dorsal woundvac EFFUSION:None visible. OTHER: Negative. IMPRESSION: Stable degenerative and post surgical changes Electronically authenticated by: SHAWNEE KELLY Date: 2022-05-11 17:16[facility]07-25-2022 NotePROCEDURE: XR FOOT LT MIN 3 VIEWS HISTORY: Arthritis of left foot COMPARISON: XR foot left 04/24/2022 10:05 AM intraoperative images FINDINGS: BONES:Mechanical fusion of the talocalcaneal joint via 2 lag screws. Mechanical fusion of the talonavicular joint via a single lag screw. Spacer within the first tarsal-metatarsal joint. Bony evidence of recently removed medial plate and screws. SOFT TISSUES:Expected postsurgical findings. EFFUSION:None visible. OTHER: Negative. IMPRESSION: 1. Surgical revision as detailed above. Electronically authenticated by: ARIELA SCHWAB Date: 2022-04-24 14:11[facility]07-25-2022 NotePROCEDURE: XR FOOT LT 2V HISTORY: Pain COMPARISON: XR foot left 04/22/2022 FINDINGS: BONES:Intraoperative spot fluoroscopic images demonstrate removal of the dorsal plate and screws extending from the talus to the first metatarsal. Spacer remains within the first metatarsophalangeal joint. Screws fusing the talocalcaneal joint remain. IMPRESSION: 1. Intraoperative revision of left foot with removal of medial midfoot dorsal plate and screws. Electronically authenticated by: ARIELA SCHWAB Date: 2022-04-24 11:54[facility]07-23-2022 NotePROCEDURE: XR FOOT LT MIN 3 VIEWS HISTORY: Pain COMPARISON: XR foot left 04/14/2022 FINDINGS: BONES:Prior mechanical fusion of the medial midfoot extending from the talus to the mid first metatarsal. No visible hardware fracture or loosening. Fusion of the posterior talocalcaneal joint. Generalized marked osteopenia. No visible fracture or dislocation. SOFT TISSUES:Marked dorsal soft tissue swelling. EFFUSION:None visible. OTHER: Negative. IMPRESSION: 1. Stable surgical changes without evidence of hardware failure or change in alignment. 2. No appreciable acute bone abnormality. 3. Marked dorsal soft tissue swelling; increased since prior study. Electronically authenticated by: ARIELA SCHWAB Date: 2022-04-22 20:52[facility]07-15-2022 NotePROCEDURE: XR FOOT LT MIN 3 VIEWS COMPARISON: 02/24/2022 HISTORY: Pain in left foot FINDINGS: BONES:Dorsal foot fusion utilizing a plate and multiple screws extending from along the medial hindfoot to the forefoot. Subtalar fusion with cannulated screws. Underlying degenerative changes. Progression of permeative pattern consistent with osteopenia. Lucency in the distal tibia likely bone graft harvesting. SOFT TISSUES:Large soft tissue defect dorsal midfoot forefoot EFFUSION:None visible. OTHER: Negative. IMPRESSION: Large dorsal soft tissue defect Stable foot fusion Progression of osteopenia Electronically authenticated by: SHAWNEE KELYL Date: 2022-04-14 17:03[facility]10-25-2021 Evaluation note* Encounter Date Diagnosis Assessment Notes Treatment Notes Treatment Clinical Notes Jul, Contact with and (suspected) exposure to other viral communicable diseases (ICD-10 - Z20.828) Today test was performed in office. Results are currently negative. That does not mean that you will not develop COVID or do not currently have a low viral count of COVID. The rapid test works best if symptoms have been over 72 hours and the results can vary if you are asymptomatic There is a higher chance of false negative results to occur if testing is performed too soon. It is recommended that even if results are negative and you have been exposed to someone that has COVID that you follow current CDC recommendations. These can be found at CDC.GOV. Follow up with primary care provider if symptoms persist or do not improve Jul, Other Additional time spent conducting pre-visit phone call, screening for symptoms, instructions on social distancing, application and removal of PPE, and cleaning of examination room, equipment and supplies was preformed. Patient education given for testing methodology and results. Patient care instructions given in writting by [facility] document. [employer] Other [id number] Evaluation note* Encounter Date Diagnosis Assessment Notes Treatment Notes Treatment Clinical Notes Jun, Arthritis of lumbosacral spine (ICD-10 - M47.817) Patient notes minimal complaints of axial back pain at this time. Patient attributes this to the recent bilateral lumbar facet radiofrequency ablations we performed. Patient is pleased with these results and we will plan on proceeding with repeat procedures on an as needed basis. Anatomy of spine discussed in detail with patient in regards to patients condition. Overall, patient believes their pain is reasonably well controlled and she is in agreement with our treatment plan. Jun, Right hip pain (ICD-10 - M25.551) Patient's main complaint is her right hip/groin pain radiating into the lateral aspect of her right thigh. Patient has failed several conservative treatment options. Based on location of pain and exam findings, patient is a candidate for a right intraarticular hip injection which we will proceed with. Risks and benefits of procedure explained to patient; patient verbalizes understanding. Patient can continues Lyrica 75 mg twice daily. Risks and side effects of this medication was discussed in detail with the patient who voiced understanding. Jun, Lumbar back pain (ICD-10 - M54.5) Jun, Other chronic pain (ICD-10 - G89.29) Jun, Other Above note writ ten by Safia Calderon CMA, Accounts Receivable Clerk. Edited and approved by Dr. Junior Mcgowan MD. [employer] Other Evaluation + Plan note No data available for this section General Surgery [facility] Evaluation noteNo [employer] Other Evaluation noteNo assessment information available [facility] Work Phone: Hisptvn general Narrative - Reported* Type Description Date Medical History DDD (degenerative disc disease), lumbar Surgical History hip replacement Surgical History tonsillectomy Surgical History carpal tunnel release bilateral Hospitalization History see above [employer] Other History general Narrative - Reported* Type Description Date Medical History DDD (degenerative disc disease), lumbar Medical History spinal stenosis Surgical History hip replacement Surgical History tonsillectomy Surgical History carpal tunnel release bilateral Surgical History vein ablasion Hospitalization History see above [employer] Other Histrmd general Narrative - Reported* Type Description Date Medical History DDD (degenerative disc disease), lumbar Medical History spinal stenosis Surgical History hip replacement Surgical History tonsillectomy Surgical History carpal tunnel release bilateral Surgical History vein ablasion Surgical History skin graft left foot Hospitalization History see above [employer] 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 Medical History Chronic low back pain Medical History Fallen arches Medical History Arthritis of feet and toes Medical History Ankle prolapse Medical History Plantar fasciitis of bilateral f eet Medical History Arthritis of right hip Medical History Bilateral carpal tunnel Medical History Trigger finger and thumb release Medical History Depression Medical History Foot surgery x 3 Surgical History Left hip replacement Surgical History tonsillectomy Surgical History carpal tunnel release bilateral Surgical History vein ablasion Surgical History skin graft left foot Surgical History Left foot reconstruction x3 202 2 Hospitalization History see above [employer] 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 Medical History Chronic low back pain Medical History Fallen arches Medical History Arthritis of feet and toes Medical History Ankle prolapse Medical History Plantar fasciitis of bilateral f eet Medical History Arthritis of right hip Medical History Bilateral carpal tunnel Medical History Trigger finger and thumb release Medical History Depression Medical History Foot surgery x 3 Surgical History Left hip replacement Surgical History tonsillectomy Surgical History carpal tunnel release bilateral Surgical History vein ablasion Surgical History skin graft left foot Surgical History Left foot reconstruction x3 202 2 Surgical History Right HIp replacement 09/03/23 Hospitalization History see above [employer] Other Hospital Discharge instructions No data available for this section [facility] Discharge instructions Additional Instructions Joint Replacement Discharge Instructions Your safety during your recovery process is important to us. Please seek immediate emergency care if you have sudden chest pain or shortness of breath. Additionally, please call our office at [phone] should any of the following occur: wound bleeding or an increase in bleeding, increased swelling, redness around the incision, fever over 101 F, excessive vomiting, nosebleeds, or bloody stool. Discharge Medications (scheduled) indicated with an X: ____x___ Senokot-S 8.6-50mg tablet. Take 2 tablets by mouth daily for 30 days or as long as you are taking a narcotic pain medication (tramadol, oxycodone, or morphine). Begin the day of surgery. x___ Miralax 17g packet. Drink 1 packet mixed with 8 ounces of water daily for 7 days. Begin the morning after surgery. Begin your home anticoagulation medication, the morning after surgery. Take as prescribed like you were before surgery. ____x___ Ecotrin (coated aspirin) 81mg tablet by mouth twice daily for 35 days. Begin the morning after surgery. ____x___ Protonix (pantoprazole) 20mg tablet by mouth daily for 35 days. Begin the morning after surgery. Xarelto (rivaroxaban) 10mg table by mouth daily for 35 days. Begin the morning after surgery. x__ Celebrex (celecoxib) 200mg tablet by mouth twice daily for 30 days. Take with food. Begin the morning after surgery. ___x____ Duricef (cefadroxil) 500mg tablet by mouth twice daily for 7 days. Take with food. Begin the morning after surgery. Bactrim-DS (sulfamethoxazole & trimethoprim) 800mg-160mg tablet by mouth twice daily for 7 days. Take with food. Begin the morning after surgery. Cleocin (clindamycin) 300mg tablet by mouth 3 times (every 8 hours) a day for 7 days. Take with food. Begin the morning after surgery. ____x___ Tylenol (acetaminophen) 500mg tablet. Take 2 tablets 3 times (every 8 hours) a day for 30 days. Begin the night of surgery if necessary. Prednisone 10mg tablet. Take 1 tablet daily for 10 days. Begin the morning after surgery. *If you have a patch behind your ear remove it the morning after surgery, discard, and thoroughly wash your hands. Discharge Medications (as needed) indicated with an X: x__ Zofran (Ondansetron) 8mg tablet by mouth 3 times (every 8 hours) a day as needed for nausea. Begin the night of surgery if necessary. ____x___ Tramadol (Ultram) 50mg tablet. Take 1 tablet by mouth every 6 hours as needed for pain. Do not take at the same time as oxycodone, MS Contin (morphine extended release), or Dilaudid (hydromorphone). Take with food. Begin the night of surgery. Take around the clock for 24 hours after surgery and then utilize if necessary. x__ Oxycodone 5mg tablet. Take 1 tablet by mouth every 4 hours as needed for pain. If pain unrelenting 30 minutes after taking 1 tablet, then take another 1 tablet. Do not take at the same time as MS Contin (morphine extended release), Dilaudid (hydromorphone), or Tramadol (Ultram). Take with food. Begin the night of surgery. Take around the clock for 24 hours after surgery and then utilize if necessary. ____x___ MS Contin (morphine extended release) 15mg tablet. Take 1 tablet by mouth every 12 hours as needed for BREAKTHROUGH pain only. If pain unrelenting 30 minutes after you have taken the second oxycodone 5mg tablet, then take 1 MS Contin tablet. Do not take at the same time as oxycodone or Tramadol (Ultram); this is a time-released medication and can only be taken once every 12 hours. Resume oxycodone at next scheduled time (4 hours after the MS Contin tablet). Begin the night of surgery if necessary. Dilaudid (hydromorphone) 2mg tablet. Take 1 tablet by mouth every 8 hours as needed for BREAKTHROUGH pain only. If pain unrelenting 30 minutes after oxycodone, then take 1 Dilaudid tablet. Do not take at the same time as oxycodone or Tramadol (Ultram). Resume oxycodone at next scheduled time (4 hours after the Dilaudid tablet). Begin the night of surgery if necessary. Discharge Instructions: BE SURE YOU HAVE READ THE BOOKLET YOU RECEIVED IN THE OFFICE. Home Health: Home health is a valuable partner in the joint replacement process; they will be your first step to your road of recovery. A therapist will see you the day after your surgery; they will be at your home before noon. They will see you the first three days after surgery and continue working with you until I see you in the office for your 2-week post-op appointment. Follow their instructions. Exercises are to be done several times a day, including the days the therapist does not come to your house! Wound Care: Your surgical incision may be covered with a few different dressings. Your home health physical therapist will remove the gauze dressing the first day after surgery, but they will leave one of the following in place until you see me in the office. Zipline x This is a no contact dressing that will stay in place until you are seen in the office for your 2-week post-op appointment. Do not place any ointments, creams, or lotions on your wound. Avoid getting outside on hot days; excessive sweating can increase the risk of wound infection. If there is drainage, place a gauze dressing over the wound, secure with paper tape, and call your therapist. A small amount of drainage is expected. When you do bathe, allow soapy water to run over the dressing site, but do not scrub the incision or the dressing. Pat the dressing site dry with a towel after you shower. DO NOT take a bath, enter a pool, peacock/pond,or ocean until we discuss this at your post-op appointments. Aquacel This is a silver-impregnated dressing with antibiotic properties that will stay in place until you are seen in the office for your 2-week post-op appointment. Do not place any ointments, creams, or lotions around your wound or on the dressing. Avoid getting outside on hot days; excessive sweating can increase the risk of wound infection. If there is drainage, place a gauze dressing over the wound, secure with paper tape, and call your therapist. A small amount of drainage is expected. When you do bathe, allow soapy water to run over the dressing site, but do not scrub the incision or the dressing. Pat the dressing site dry with a towel after you shower. DO NOT take a bath, enter a pool, peacock pond, or ocean until we discuss this at your post-op appointments. Prevena x This is a negative pressure wound therapy device with a collection container for any drainage. If this becomes completely full, call your therapist to discuss changing the collection container. This device also has a 14-day battery. Your home health physical therapist will remove the dressing 14 days after your surgery; it will be removed prior to your initial follow up appointment. Do not place any ointments, creams, or lotions around your wound or on the dressing. Avoid getting outside on hot days; excessive sweating can increase the risk of wound infection. When you do bathe, allow soapy water to run over the dressing site, but do not scrub the device or the surrounding skin. DO NOT get the device wet! Pat the dressing site dry with a towel after you shower. DO NOT take a bath, enter a pool, peacock/pond, or ocean until we discuss this at your post-op appointments. What to expect: SWELLING: Ice frequently, a minimum of 4 times a day for 20 minutes at a time for the first 2-3 weeks after surgery, especially after doing your exercises. While icing, elevate your foot above the level of your heart with several pillows under your ankle. DO NOT put pillows under your knee. (KNEE REPLACEMENT ONLY) Avoid prolonged periods of sitting over the first 7 to 10 days after surgery. We recommend that you not sit for more than 45 to 60 minutes at a time. You should get up and move around or lie down and elevate your leg. BRUISING: You will have bruising to some degree; possibly the thigh, calf, ankle, foot, and in some cases the genitalia. Do not be alarmed. The bruising will eventually go away on its own as the body reabsorbs the blood. BLISTERS: Some patients may develop blisters around the knee/hip and/or the incision. Although they can be alarming in appearance, they pose no significant risk to your joint replacement. Leave the blisters alone and allow them to heal on their own. NUMBNESS: Usually normal around the incision. For knee replacements, the outside of the knee may be involved as well. The area of numbness may shrink over time or it could last forever. For hip replacements, you may notice numbness on the outside of the thigh extending down the outside of the knee. The area of numbness may shrink over time or it could last forever. JANELL hose (stockinette): Wear them for 4 weeks on the operative side and 2 weeks on the nonoperative side. Try to wear these as 24/ as possible to help decrease swelling. Weight Bearing, Walkers, and Canes: Do not remove your knee immobilizer. Do not walk without this until your therapist has removed it either on the first day after surgery or the second day after surgery. Do not attempt to walk without your walker and your patient care technician instructor until the therapist checks you the following day after surgery and gives you further instruction. Typically, you will start out on a walker, then progress to a cane, and eventually walk without any device. Some of our patients do this within 2 weeks of surgery, while others can take 6 weeks. Pain Medications: You may experience significant pain. Our goal is to make your pain manageable (not absent, since this is usually not realistic) and to allow you to progress with your therapy for your hip or knee. Take your pain medication scheduled for the first 24 hours, then take it as needed. Always take your pain medication with food to decrease nausea and vomiting. Be sure to take stool softeners and/or laxatives as directed. You may take ooqp-[id number]-jmtjipq Benadryl if itching occurs without a rash or hives. Icing and elevation will help relieve pain as well, do not underestimate the power of ice and elevation. We do recommend that you stop taking narcotic pain medications by 4-6 weeks after surgery and if necessary, continue to use anti-inflammatory medications such as Mobic (meloxicam), Celebrex (celecoxib), or an viud-hpx-bwawchf medication (Aleve, Motrin, Ibuprofen, etc). Driving an automobile: You must be off all narcotic pain medications. If your right leg is involved, that is your braking leg. Your physical therapist needs to help you determine that you can actively and firmly hit the brake and sustain it as this could be a life or situation for you or someone else. You will not be cleared to drive by me or anyone else. It is up to you to know when you feel safe to drive. We do recommend utilizing an empty parking lot to practice and ensure you are able to slam on the brakes if necessary during an emergency. Low Grade Fever (less than 101 F): Low-grade fevers can be treated, but make sure you do not exceed the daily limit of Tylenol. The daily limit on Tylenol (acetaminophen) is 3000 mg in a 24-hour period. If you have procedures done after your joint replacement: Dental procedures (including routine cleaning), prostate surgery, colonoscopy, and other invasive procedures could increase your risk for a total joint infection. During a postoperative visit, be sure to discuss the use of prophylactic antibiotic therapy prior to and sometimes after these invasive procedures. The decision to utilize antibiotics before and/or after these invasive procedures is a shared decision process between you and myself. Constipation: If you develop constipation in spite of taking stool softeners and/or laxatives, follow the protocol below: Day 2 of constipation if no results, use a Dulcolax suppository Day 3 of constipation if no results, use a fleet s enema. If no results by the afternoon, notify our office. Bladder Habits: If you have difficulty urinating or are unable to urinate within 12 hours after arriving home following your surgery, please notify our office immediately. Expectations for Pain Relief after Joint Replacement: Patients predictably improve for up to a year after a hip or knee replacement. It is normal for you to still have some pain in your hip or knee for as much as 3 to 9 months after surgery. The pain relief will come, but you should not expect great relief of pain in less than this time. High demand activities (such as going up and down stairs) frequently take 3 to 9 months before patients feel comfortable doing them. It is permissible to go up and down stairs whenever you can safely navigate them, but it will take much longer to do them normally and with great confidence. Questions or Problems: If you have any questions, problems, or confusion about your recovery after your hip or knee replacement, please feel free to call our office at [phone]. You are a priority of ours and we will not be upset with you if you call. We would much rather you call to confirm aspects of your recovery process as opposed to possibly hindering your recovery with inappropriate care. We are committed to providing you with the best care possible. David Mcfarland II, MD Updated 12/15/2022[facility] Work Phone: Progress note No data available for this section General Surgery [place] Reason for referral (narrative)* Reason Appt: Diagnosis 1 Depression (F32.9) Referral Organization [facility] Referring Provider First Name Rolando Referring Provider Last Name Jasmin Referring Provider Specialty Internal Me dicine Referred Organization [facility] [place] [address]erred [address] [place] Referred Provider Specialty Karina s Referral Priority Routine General Notes Anna Jose 2022 01:07:39 PM >Please contact patient to schedule. [employer] Other Summary Purpose Family History Relationship Condition Age at Onset Recorded Date/T reyna father Diabetes mellitus Unknown Congestive heart failure Unknown Not Specified Primary malignant ne oplasm of bone marrow Unknown Osteoarthritis Unknown Macular degeneration Unknown Advance Directives Advance Directive Response Recorded Date/ Time Advance Directives No July 17, 2018 1:24pm Chief Complaint and Reason for Visit Chief Complaint M25.551 Obesity Chief Complaint Obesity Chief Complaint Obesity M16.11 Hip pain Chief Complaint Obesity M16.11 Hip pain Right Total Hip Pre Op Hip pain Chief Complaint M16.11 Hip pain Right Total Hip Pre Op Hip pain Obesity Additional Source Comments INFORMATION SOURCE (unrecogn ized section and content) DATE CREATED AUTHOR 04/29/2021 [facility] DATE CREATED AUTHOR AUTHOR'S ORGANIZ ATION 12/20/2022 [facility] DATE CREATED AUTHOR AUTHOR'S ORGANIZ ATION 03/09/2023 [facility] DATE CREATED AUTHOR AUTHOR'S ORGANIZ ATION 07/16/2023 [facility] DATE CREATED AUTHOR AUTHOR'S ORGANIZ ATION 10/18/2023 [facility] REASON FOR VISIT (unrecogniz ed section and content) Recheck Right HipDLC refill2 WK POST OPflu and covid vaccine2 month Follow upH&P RTHAPRE OP [place] - RIGHT HIP REPLACEMENTDC BloodworkOP SP RT HIP PAIN, REQUESTING APPT TO DISCUSS WEIGHT LOSS AND STATUS FOR SURGERY, get updated weight todayVit DwellnessRD WM f/iConstipation MedRD WM f/uBEING RELEASEDRD WM 1st after classAPPT CANCELLATIONDC Lab resultsDLC please callWMN from Heatherprescription refillInitial WMNurine cultureBladder Infection/ Possible HerniaDC VoicemailHM LabsmessageHM fax lab requestre-certR INTRA ARTICULAR HIP JOINT INJ/R[facility] PTMEDSCONSULT DR DR Duy PIERCE RT HIP PAIN WX [facility] PT WILL BRING ON DISC#31 RED JEEP, H/A, N/V, CONGESTION, COVID Provider VisitFOLLOW UP AFER BONNIE LUMBAR FACET [facility] Care Teams (unrecognized sec tion and content) Team Status: Active Member Role Status Dates NON STAFF Primary Care Provider Active Team Status: Inactive Member Role Status Dates NON STAFF Primary Care Provider Active David Mcfarland II, MD Attending Provider Active Team Status: Active Member Role Status Dates David Mcfarland II, MD Attending Provider Active Waqas Pierce MD Primary Care Provider Active Team Status: Inactive Member Role Status Dates Waqas Pierce MD Attending Provider Active Team Status: Active Member Role Status Dates NON STAFF Primary Care Provider Active David Mcfarland II, MD Attending Provider Active Team Status: Inactive Member Role Status Dates NON STAFF Primary Care Provider Active Start: August 15, 2023 End: August 15, 2023 David Mcfarland II, MD Attending Provider Active Start: August 15, 2023 End: August 15, 2023 Team Status: Inactive Member Role Status Dates NON STAFF Primary Care Provider Active Start: August 28, 2023 End: August 28, 2023 David Mcfarland II, MD Attending Provider Active Start: August 28, 2023 End: August 28, 2023 Team Status: Active Member Role Status Dates NON STAFF Primary Care Provider Active Start: August 31, 2023 David Mcfarland II, MD Attending Provider Active Start: August 31, 2023 Team Status: Inactive Member Role Status Dates NON STAFF Primary Care Provider Active Start: September 03, 2023 End: September 03, 2023 David Mcfarland II, MD Attending Provider Active Start: September 03, 2023 End: September 03, 2023 Team Status: Active Member Role Status Dates David Mcfarland II, MD Attending Provider Active Start: October 15, 2023 Waqas Pierce MD Primary Care Provider Active Start: October 15, 2023 Team Status: Inactive Member Role Status Dates NON STAFF Primary Care Provider Active Start: October 17, 2023 End: October 17, 2023 David Mcfarland II, MD Attending Provider Active Start: October 17, 2023 End: October 17, 2023 Goals (unrecognized section and content) Goals may be documented in a n alternate section FOR RECORDS PERTAINING TO PATIENTS WHO ARE OR HAVE BEEN ENROLLED IN A CHEMICAL DEPENDENCY/SUBSTANCEABUSE PROGRAM, SOME INFORMATION MAY BE OMITTED. This clinical summary was aggregated from multiple sources. Caution should be exercised in using it in the provision of clinical care. This summary normalizes information from multiple sources, and as a consequence, information in this document may materially change the coding, format and clinical context of patient data. In addition, data may be omitted in some cases. CLINICAL DECISIONS SHOULD BE BASED ON THE PRIMARY CLINICAL RECORDS. [employer] provides no warranty or guarantee of the accuracy or completeness of information in this document.
== END 2023-10-31 09:38 | disposition home or self-care (01) ==
LOC: RAD 09:38
PROVIDERS: PCP Family Medicine; Visit Provider Podiatrist Foot & Ankle Surgery
DX: M25.572 Pain in left ankle and joints of left foot (principal); M21.42 Flat foot [pes planus] (acquired), left foot
CPT/HCPCS: 73610; 73630

== ENCOUNTER 2023-11-01 11:56 | Outpatient (OUT) | payer OTHER, SELFPAY ==
--- OUTSIDE RECORDS SUMMARY | 2023-11-01 12:03 | XMS_ITS | CCD ---
Author Name Unknown Address [address] [place] [address] Organization [facility] Care Team Providers Care Sales Lead Name Role Phone SELF, REFERRED Referring Unavailable DAVID LR Admitting Unavailable DAVID LR Attending Unavailable WAQAS PIERCE Primary Care Unavailable DAVID LR Surgeon Unavailable [facility] Procedure Practitioner Unavailab JUDSON Martinez Surgeon Unavailable UT Procedure Practitioner Unavailab Junior Peterson Unavailable Mallory [...] SHAWNEE James Consulting Unavailable CHUCKY ., DR MLAAVE Consulting Unavailable ZIEBER, DR ARIELA Vaz Consulting [...] HIGHLANDER, PETER D Admitting Unavailable PIERCE, DR WQAAS Mendez Primary Care Unavailable HIGHLANDER, AMY Iverson [...] PIERCE, DR WAQAS Mendez Primary Care Unavailable [facility] DR ARIELA Vaz Consulting Unavailable LAMIN MOHAN [...] PIERCE, DR WAQAS Mendez Primary Care Unavailable [facility] AMY Iverson Attending Unavailable HIGHLANDER, AMY Iverson [...] Unavailable MD David Mcfarland II Attending Provider [phone] MD Waqas Pierce Primary Care Provider [phone] NON STAFF Primary Care Provider Unavailsabino PereaCarrie Unavailable MD David Mcfarland II Attending Provider MD Waqas Pierce Primary Care Provider [phone] David Mcfarland II Admitting Unavailabl e NON [...] Unavailable David Mcfarland II Admitting Unavailsabino e Wqaas Pierce Admitting Unavailable Waqas Pierce Attending Unavailable Allergies Allergy Classification Reported Allergen(s) Allergy Type Date of Onset Reaction(s) Facility metFORMIN (1 source) metFORMIN; Translations: [METFORMIN] Drug Allergy 12-17-19 [facility] Repository Penicillins (antibiotic) (1 source) Penicillin Drug Allergy 03-11-20 18 [facility] Repository Serotonin (1 source) Serotonin; Translations: [SEROTONIN] Drug Allergy 12-17-19 [facility] Repository (20 sources) Penicillin G Drug Allergy rash [employer] Other (20 sources) CYMBOLTA Propensity to adverse reactions temporary blindness and couldnt feel herself breathing [employer] Other (20 sources) DULoxetine; Translations: [duloxetine] Drug Allergy 09-05-20 22 Impairment level of vision (disorder) [facility] [place] (20 sources) metFORMIN; Translations: [metformin] Drug Allergy 09-05-20 22 Abdominal mass (finding) [facility] [place] (20 sources) Penicillin; Translations: [penicillin] Drug Allergy 08-08-20 13 Eruption of skin (disorder) [facility] [place] (1 source) DULoxetine Drug Allergy [facility] Repository (1 source) metFORMIN Drug Allergy [facility] Repository (5 sources) Penicillins; Translations: [PENICILLINS] Drug allergy (disorder) 10-01-19 00 Rash [facility] Repository (20 sources) Rx Essentials Antidepressant *HEMATOPOIETIC AGENTS Propensity to adverse reactions Comment:LEENATO SYED [employer] Other (3 sources) Allergies Reconciled Propensity to adverse reactions 08-17-20 Unknown [employer] Other (20 sources) Substance with penicillin structure and antibacterial mechanism of action (substance) Drug allergy Unknown [employer] Other (20 sources) Substance with serotonin re-uptake inhibitor mechanism of action (substance) Drug allergy 09-04-20 12 SEROTONIN HCL [employer] Other (3 sources) patient allergy list reviewed by nurse or physicia Propensity to adverse reactions 12-09-19 14 Comment:Done [employer] Other (3 sources) Serotonin Drug Allergy 08-28-20 temporary blindness, couldn't feel self breath [facility] (1 source) DULoxetine Drug Allergy 08-28-20 [facility] Repository (1 source) metFORMIN Drug Allergy 08-28-20 [facility] Repository (1 source) Penicillins Drug allergy (disorder) 08-28-20 [facility] Repository Medications Current Medications Medication Drug [...] DISCHARGE DOS: 09/03/23 Aug, Active Tylenol Active [id number] 200 actuat albuterol 0.09 mg/actuat metered dose [...] Ordered docusate sodium 50 mg / sennosides, snf 8.6 mg oral tablet (12 sources) Start: [...] Once a day Active polyethylene glycol 3350 04265 mg powder for oral solution (12 sources) [...] surgery Chronic Other aftercare (2 sources) Other senior living (current) drug therapy; Translations: [OTH RESIDENTIAL CURRENT DRUG THERAPY] Onset: 3 Episodic Other [...] 10-17-2023 XR hip RT min 2V(w/wo pelvis)* [address] [address] XRay Report Signed Patient: Nicol Smith MR#: [id number] 9 : 1960 Acct:[id number] Age/Sex: 63 / F ADM Date: 10/17/23 Loc: [facility] Room: Type: [facility] Attending Dr: David Mcfarland II, MD Copies [...] Kane Katz M.D.10/17/2023 3:39 PM Dictation Location: [place] [address] Transcribed By: [facility] 10/17/23 1539 Dictated By: Kane Katz DO 10/17/23 1538 Signed By: 10/17/23 1539 Normal [facility] XR hip RT min 2V(w/wo pelvis)* [facility] [employer] Other XR hip RT min 2V(w/wo pelvis)* [facility] [employer] Other XR hip RT min 2V(w/wo pelvis)* [address] [place] [address] [employer] Other XR hip RT min 2V(w/wo pelvis)* [place] [address] [employer] Other XR hip RT min 2V(w/wo pelvis)* XRay Report [employer] Other XR hip RT min 2V(w/wo pelvis)* Signed [employer] Other XR hip RT min 2V(w/wo pelvis)* Patient: Nicol Smith MR#: [id number] [employer] Other XR hip RT min 2V(w/wo pelvis)* 9 [employer] Other XR hip RT min 2V(w/wo pelvis)* : 1960 Acct:[id number] [employer] Other XR hip RT min 2V(w/wo pelvis)* Age/Sex: 63 / F ADM Date: 10/17/23 [employer] Other XR hip RT min 2V(w/wo pelvis)* Loc: [facility] Room: Type: [facility] [employer] Other XR hip RT min 2V(w/wo pelvis)* Attending Dr: David Mcfarland II, MD [employer] Other XR hip RT min 2V(w/wo pelvis)* Copies to: David Mcfarland MD [employer] Other XR hip RT min 2V(w/wo pelvis)* Ordering Provider: David Mcfarland MD [employer] Other XR hip RT min 2V(w/wo pelvis)* Date of Service: 10/17/23 [employer] Other XR hip RT min 2V(w/wo pelvis)* XR/XR hip RT min 2V(w/wo pelvis)*: Aftercare following joint replacement [employer] Other XR hip RT min 2V(w/wo pelvis)* surgery;[facility] of [facility] [employer] Other XR hip RT min 2V(w/wo pelvis)* 2 views right hip with single view pelvis plain film [employer] Other XR hip RT min 2V(w/wo pelvis)* COMPARISON: 09/03/2023 [email or web address] Other XR hip RT min 2V(w/wo pelvis)* HISTORY: Status post right total hip arthroplasty [employer] Other XR hip RT min 2V(w/wo pelvis)* ACUTE FINDINGS: None [employer] Other XR hip RT min 2V(w/wo pelvis)* DEGENERATIVE CHANGE: Unremarkable [employer] Other XR hip RT min 2V(w/wo pelvis)* SOFT TISSUE FINDINGS: Unremarkable [employer] Other XR hip RT min 2V(w/wo pelvis)* JOINT EFFUSION: None [employer] Other XR hip RT min 2V(w/wo pelvis)* POSTOP CHANGES: Stable bilateral hip arthroplasties. [employer] Other XR hip RT min 2V(w/wo pelvis)* BONY MINERALIZATION: Adequate [employer] Other XR hip RT min 2V(w/wo pelvis)* XR/XR hip RT min 2V(w/wo pelvis)* [employer] Other XR hip RT min 2V(w/wo pelvis)* IMPRESSION: Stable right hip arthroplasty. [employer] Other XR hip RT min 2V(w/wo pelvis)* Impression dictated by: Kane Katz M.D.10/17/2023 3:39 PM [employer] Other XR hip RT min 2V(w/wo pelvis)* Dictation Location: [place] [address] [employer] Other XR hip RT min 2V(w/wo pelvis)* Transcribed By: SILVIA 10/17/23 7586 [employer] Other XR hip RT min 2V(w/wo pelvis)* Dictated By: Kane Katz DO 10/17/23 2429 [employer] Other XR hip RT min 2V(w/wo pelvis)* Signed By: [employer] Other XR hip RT min 2V(w/wo pelvis)* 10/17/23 7689 [employer] Other ABO/Rh Retypeon 09-03-2023 ABO/RH Recheck Result Positive Normal [facility] Comment on above: Result Comment: PERF ORMED BY: [facility] [address] [place] [address] PATHOLOGIST SHELL ASSEMBLER SUAD Killian 09-03-2023 L ------ Specimen: [id number] Received: 09/03/23 Status: GRACIELA Chavez Num: [id number] Spec Type: Surgical Subm Dr: David Mcfarland MD Tissues: A Femoral Head - Other than Fracture (RT HIP) Procedures: HE/2, Gross/Micro L3, Decalcification Age/ Patient Sex Location Account Attending Physician Nicol Smith 63/F [place] [id number] David Mcfarland MD SPEC NUM: [id number] RECD: 09/03/23 STATUS: GRACIELA CHAVEZ NUM: [id number] SABRINA: 09/03/[address] [facility] [address]: David Mcfarland MD ENTERED: 09/03/23 [facility] DR: BEATRICE TYPE: Surgical DEPT: S ORDERED: [...] is taken. Gross examination only. CPT Codes 16464 Specimen: [id number] Received: 09/03/23 Status: GRACIELA Chavez Num: [id number] Spec Type: Surgical Subm Dr: David Mcfarland MD Tissues: A Femoral Head - Other than Fracture (RT HIP) Procedures: HE/2, Gross/Micro L3, Decalcification Patient: Nicol Smith [id number] (Continued) Specimen: [id number] Received: 09/03/23 (Continued) Signed (signature on file) Dez Núñez MD 09/07/23 1345 Specimen: [id number] Received: 09/03/23 Status: GRACIELA Chavez Num: [id number] Spec Type: Surgical Subm Dr: David Mcfarland MD Tissues: A Femoral Head - Other than Fracture (RT HIP) Procedures: /2, Gross/Micro L3, Decalcification Patient: RomeoNicol Gonsales [id number] (Continued) Specimen: [id number] Received: 09/03/23 (Continued) Maikol Photo Specimen: [id number] Received: 09/03/23 Status: GRACIELA Chavez Num: [id number] Spec Type: Surgical Subm Dr: David Mcfarland MD Tissues: A Femoral Head - Other than Fracture (RT HIP) Procedures: HE/2, Gross/Micro L3, Decalcification Patient: Nicol Smith [id number] (Continued) Signed (signature on file) Dez Núñez MD 09/07/23 1345 Normal [facility] XR low pelvis w/RT x-table h ipon 09-03-2023 XR low pelvis w/RT x-table hip [facility] [place] [address] XRay Report Signed Patient: Nicol Smith MR#: [id number] 9 : 1960 Acct:[id number] Age/Sex: 63 / F ADM Date: 09/03/23 Loc: [place] Room: Type: [facility] Attending Dr: David Mcfarland II, MD Copies to: David Mcfarland MD Ordering Provider: David Mcfarland MD Date of Service: 09/03/23 XR/XR low pelvis w/RT x-table hip: Total Hip, due in PACU ([id number]) XR/XR hip RT 1V: ANTERIOR HIP IN [...] Anna Hull M.D.09/03/2023 11:53 AM Dictation Location: [place] [address] Transcribed By: [facility] 09/03/23 115 Dictated By: Anna Hull MD 09/03/23 115 Signed By: 09/03/23 115 Normal [facility] Automated erythrocytes count in urine sediment (number/area)Ordered By: David Mcfarland on 08-28-2023 RBC Auto (Urine sed) [#/Area] 1-2 [HPF] 0-4 [facility] Automated leukocytes count i n urine sediment (number/area)Ordered By: David Mcfarland on 08-28-2023 WBC Auto (Urine sed) [#/Area] 10-19 [HPF] 0-4 [facility] Basic Metabolic Panelon 08-02 Anion gap [Moles/Vol] 11.1 mmol/L Normal 6.0-15.0 [facility] Comment on above: Performed By: #### C HOPE, BMP #### [address] #### FRUC #### [facility] , Calcium [Mass/Vol] 9.7 mg/dL Normal 8.6-10.3 [facility] Comment on above: Result Comment: PERF ORMED BY: [place] [address] PATHOLOGIST SHELL ASSEMBLER SUAD ARREAGA M.D. Performed By: #### C HOPE, BMP #### [address] [address] [place] #### FRUC #### [facility] , Chloride [Moles/Vol] 107 mmol/L Normal 98-107 [facility] Comment on above: Performed By: #### C BC, BMP #### [place] [address] [place] #### FRUC #### [facility] , CO2 [Moles/Vol] 26.1 mmol/L Normal 21.0-31.0 [facility] Comment on above: Performed By: #### C BC, BMP #### [facility] [address] [place] [address] [place] #### FRUC #### [facility] , Creatinine [Mass/Vol] 0.96 mg/dL Normal 0.60-1.20 [facility] Comment on above: Performed By: #### C BC, BMP #### [place] [address] [place] #### FRUC #### [facility] , GFR/1.73 sq M.predicted MDRD (S/P/Bld) [Vol rate/Area] mL/min/{1.73_m2} Normal [facility] Comment on above: Performed By: #### C BC, BMP #### [facility] [address] [place] [address] [place] #### FRUC #### [facility] , Glucose [Mass/Vol] 98 mg/dL Normal 70-100 [facility] Comment on above: Result Comment: [place] om Glucose Reference Range is dependent on time and content of last meal. Glucose of more than 200 mg/dL in a nonstressed, ambulatory subject supports the diagnosis of Diabetes Mellitus. ADA recommended reference range Performed By: #### C BC, BMP #### [place] [address] [place] #### FRUC #### [facility] , Potassium [Moles/Vol] 4.2 mmol/L Normal 3.5-5.1 [facility] Comment on above: Performed By: #### C BC, BMP #### [facility] [address] [place] [address] [place] #### FRUC #### [facility] , Sodium [Moles/Vol] 140 mmol/L Normal 136-145 [facility] Comment on above: Performed By: #### C BC, BMP #### [facility] [address] [place] [address] [place] #### FRUC #### [facility] , Urea nitrogen [Mass/Vol] 17 mg/dL Normal 7-25 [facility] Comment on above: Performed By: #### C BC, BMP #### [facility] [address] [place] [address] [place] #### FRUC #### [facility] , Basophils Auto (Bld) [#/Vol] Ordered By: David Mcfarland on 08-28-2023 Basophils (Bld) [#/Vol] 0.1 10*3/uL 0.0-0.2 [facility] Basophils/100 WBC Auto (Bld) Ordered By: David Mcfarland on 08-28-2023 Basophils/100 WBC (Bld) 1.1 % . [facility] Bilirubin Test strip Ql (U)O rdered By: David Mcfarland on 08-28-2023 Bilirubin Ql (U) Negative Negative [facility] Calcium [Mass/volume] in Ser um or PlasmaOrdered By: David Mcfarland on 08-28-2023 Calcium [Mass/Vol] 9.7 mg/dL 8.6-10.3 [facility] Carbon dioxide, total [Moles /volume] in Serum or PlasmaOrdered By: David Mcfarland on 08-28-2023 CO2 [Moles/Vol] 26.1 mmol/L 21.0-31.0 [facility] Chloride [Moles/volume] in S adela or PlasmaOrdered By: David Mcfarland on 08-28-2023 Chloride [Moles/Vol] 107 mmol/L 98-107 [facility] Color Auto (U)Ordered By: Arleth Mcfarland on 08-28-2023 Color (U) Yellow Yellow [facility] Complete Blood Count Auto Di ffon 08-28-2023 Basophils (Bld) [#/Vol] 0.1 10*3/uL Normal 0.0-0.2 [facility] Comment on above: Result Comment: PERF ORMED BY: [place] [address] PATHOLOGIST SHELL ASSEMBLER SUAD RAREAGA M.D. Performed By: #### C BC, BMP #### [address] #### FRUC #### [facility] , Basophils/100 WBC (Bld) 1.1 % Normal . [facility] Comment on above: Performed By: #### C BC, BMP #### [facility] [address] [place] [address] [place] #### FRUC #### [facility] , Eosinophils (Bld) [#/Vol] 0.1 10*3/uL Normal 0.0-0.45 [facility] Comment on above: Performed By: #### C BC, BMP #### [place] [address] [place] #### FRUC #### [facility] , Eosinophils/100 WBC (Bld) 1.0 % Normal . [facility] Comment on above: Performed By: #### C BC, BMP #### [facility] [address] [place] [address] [place] #### FRUC #### [facility] , Erythrocyte distribution width (RBC) [Ratio] 17.5 % High 11.9-15.3 [facility] Comment on above: Performed By: #### C BC, BMP #### [facility] [address] [place] [address] [place] #### FRUC #### [facility] , Hematocrit (Bld) [Volume fraction] 36.9 % Normal 34.0-46.4 [facility] Comment on above: Performed By: #### C BC, BMP #### [facility] [address] [place] [address] [place] #### FRUC #### [facility] , Hemoglobin (Bld) [Mass/Vol] 11.9 g/dL Normal 11.8-15.4 [facility] Comment on above: Performed By: #### C BC, BMP #### [place] [address] [place] #### FRUC #### [facility] , Lymphocytes (Bld) [#/Vol] 1.6 10*3/uL Normal 1.00-4.8 [facility] Comment on above: Performed By: #### C BC, BMP #### [place] [address] [place] #### FRUC #### [facility] , Lymphocytes/100 WBC (Bld) 25.3 % Normal . [facility] Comment on above: Performed By: #### C BC, BMP #### [place] [address] [place] #### FRUC #### [facility] , MCH (RBC) [Entitic mass] 25.0 pg Normal 24.7-34.3 [facility] Comment on above: Performed By: #### C BC, BMP #### [place] [address] [place] #### FRUC #### [facility] , MCV (RBC) [Entitic vol] 78.0 fL Low 80-100 [facility] Comment on above: Performed By: #### C BC, BMP #### [place] [address] [place] #### FRUC #### [facility] , Mean Corpuscular HGB Conc 32.1 g/dL Normal 32.0-35.0 [facility] Comment on above: Performed By: #### C BC, BMP #### [facility] [address] [place] [address] [place] #### FRUC #### [facility] , Monocytes (Bld) [#/Vol] 0.5 10*3/uL Normal 0.0-0.8 [facility] Comment on above: Performed By: #### C BC, BMP #### [place] [address] [place] #### FRUC #### [facility] , Monocytes/100 WBC (Bld) 7.6 % Normal . [facility] Comment on above: Performed By: #### C BC, BMP #### [facility] [address] [place] [address] [place] #### FRUC #### [facility] , Neutrophils (Bld) [#/Vol] 4.2 10*3/uL Normal 1.8-7.7 [facility] Comment on above: Performed By: #### C BC, BMP #### [facility] [address] [place] [address] [place] #### FRUC #### [facility] , Neutrophils/100 WBC (Bld) 65.0 % Normal . [facility] Comment on above: Performed By: #### C BC, BMP #### [facility] [address] [place] [address] [place] #### FRUC #### [facility] , NRBC% 0.1 /100{WBC} Normal 0-0.5 [facility] Comment on above: Performed By: #### C BC, BMP #### [facility] [address] [place] [address] [place] #### FRUC #### [facility] , Platelet mean volume (Bld) [Entitic vol] 8.0 fL Normal 6.3-10.7 [facility] Comment on above: Performed By: #### C BC, BMP #### [facility] [address] [place] [address] [place] #### FRUC #### [facility] , Platelets (Bld) [#/Vol] 387 10*3/uL Normal 150-450 [facility] Comment on above: Performed By: #### C BC, BMP #### [place] [address] [place] #### FRUC #### [facility] , RBC (Bld) [#/Vol] 4.74 10*6/uL Normal 3.60-5.00 [facility] Comment on above: Performed By: #### C BC, BMP #### [place] [address] [place] #### FRUC #### [facility] , WBC (Bld) [#/Vol] 6.4 10*3/uL Normal 3.8-11.6 [facility] Comment on above: Performed By: #### C BC, BMP #### [place] [address] [place] #### FRUC #### [facility] , Creatinine [Mass/volume] in Serum or PlasmaOrdered By: David Mcfarland on 08-28-2023 Creatinine [Mass/Vol] 0.96 mg/dL 0.60-1.20 [facility] Dipstick and Microscopicon 1 10-28-2022 Appearance (U) Clear Normal Clear [facility] Comment on above: Order Comment: Name Collection Type:: Clean-Voided Midstream Performed By: #### C BC, BMP #### [place] [address] [place] #### FRUC #### [facility] , Bacteria,Urine None Seen Normal None Seen [facility] Comment on above: Order Comment: Name Collection Type:: Clean-Voided Midstream Performed By: #### C BC, BMP #### [place] [address] [place] #### FRUC #### [facility] , Bilirubin,Urine Negative Normal Negative [facility] Comment on above: Order Comment: Name Collection Type:: Clean-Voided Midstream Performed By: #### C BC, BMP #### [place] [address] [place] #### FRUC #### [facility] , Color (U) Yellow Normal Yellow [facility] Comment on above: Order Comment: Name Collection Type:: Clean-Voided Midstream Performed By: #### C BC, BMP #### [address] #### FRUC #### [facility] , Glucose Ql (U) Normal Normal Normal [facility] Comment on above: Order Comment: Name Collection Type:: Clean-Voided Midstream Performed By: #### C BC, BMP #### [address] #### FRUC #### [facility] , Hyaline Casts,Urine 0-8 Normal 0-8 [facility] Comment on above: Order Comment: Name Collection Type:: Clean-Voided Midstream Result Comment: PERF ORMED BY: [place] [address] PATHOLOGIST SHELL ASSEMBLER SUAD ARREAGA M.D. Performed By: #### C BC, BMP #### [place] [address] [place] #### FRUC #### [facility] , Ketones Ql (U) Negative Normal Negative [facility] Comment on above: Order Comment: Name Collection Type:: Clean-Voided Midstream Performed By: #### C BC, BMP #### [place] [address] [place] #### FRUC #### [facility] , Leukocyte esterase Test strip Ql (U) 3+ High Negative [facility] Comment on above: Order Comment: Name Collection Type:: Clean-Voided Midstream Performed By: #### C BC, BMP #### [address] #### FRUC #### [facility] , Nitrite,Urine Negative Normal Negative [facility] Comment on above: Order Comment: Name Collection Type:: Clean-Voided Midstream Performed By: #### C BC, BMP #### [address] #### FRUC #### [facility] , Occult Blood,Urine Negative Normal Negative [facility] Comment on above: Order Comment: Name Collection Type:: Clean-Voided Midstream Result Comment: PERF ORMED BY: [place] [address] PATHOLOGIST SHELL ASSEMBLER SUAD ARREAGA M.D. Performed By: #### C BC, BMP #### [address] #### FRUC #### [facility] , pH (U) 5.5 [pH] Normal 5.0-9.0 [facility] Comment on above: Order Comment: Name Collection Type:: Clean-Voided Midstream Performed By: #### C BC, BMP #### [address] #### FRUC #### [facility] , Protein,Urine Negative Normal Negative [facility] Comment on above: Order Comment: Name Collection Type:: Clean-Voided Midstream Performed By: #### C BC, BMP #### [address] #### FRUC #### [facility] , RBC,Urine 1-2 Normal 0-4 [facility] Comment on above: Order Comment: Name Collection Type:: Clean-Voided Midstream Performed By: #### C BC, BMP #### [facility] [address] [place] [address] [place] #### FRUC #### [facility] , Specificy Dema,Urine 1.020 Normal 1.001-1.03 0 [facility] Comment on above: Order Comment: Name Collection Type:: Clean-Voided Midstream Performed By: #### C BC, BMP #### [place] [address] [place] #### FRUC #### [facility] , Squamous Epithelial Cell,Urine 3-4 High 0-2 [facility] Comment on above: Order Comment: Name Collection Type:: Clean-Voided Midstream Performed By: #### C BC, BMP #### [place] [address] [place] #### FRUC #### [facility] , Urobilinogen,Urine Normal Normal Normal [facility] Comment on above: Order Comment: Name Collection Type:: Clean-Voided Midstream Performed By: #### C BC, BMP #### [place] [address] [place] #### FRUC #### [facility] , WBC,Urine 10-19 High 0-4 [facility] Comment on above: Order Comment: Name Collection Type:: Clean-Voided Midstream Performed By: #### C BC, BMP #### [place] [address] [place] #### FRUC #### [facility] , ECG 12 lead ECGon 08-28-2023 ECG 12 lead ECG [facility] Main [place] [address] [place] [address] Electrocardiograph Report Signed Patient: Nicol Smith MR#: [id number] 9 : 1960 Acct:[id number] Age/Sex: 63 / F ADM Date: 08/28/23 Loc: PS Room: Type: [facility] Attending Dr: David Mcfarland II, MD Ordering [...] previous ECGs available Confirmed by NAHID PINEDA [facility] ([id number] on 08/28/2023 10:26:43 PM Referred By: BARTOLO Electronically Signed By:KAMARI MANN MD [facility] Transcribed By: GILDA Signed By Jonathan Mann MD 08/28/232225 Normal [facility] Eosinophils Auto (Bld) [#/Vo l]Ordered By: David Mcfarland on 08-28-2023 Eosinophils (Bld) [#/Vol] 0.1 10*3/uL 0.0-0.45 [facility] Eosinophils/100 WBC Auto (Bl d)Ordered By: David Mcfarland on 08-28-2023 Eosinophils/100 WBC (Bld) 1.0 % . [facility] Erythrocyte distribution wid th Auto (RBC) [Ratio]Ordered By: David Mcfarland on 08-28-2023 Erythrocyte distribution width (RBC) [Ratio] 17.5 % 11.9-15.3 [facility] Fructosamineon 08-28-2023 Fructosamine 205 umol/L Normal 0-285 [facility] Comment on above: Result Comment: Publ ished reference interval for apparently healthy subjects between age 20 and 60 is 205 - 285 umol/L and in a poorly controlled diabetic population is 228 - 563 umol/L with a mean of 396 umol/L. Performed at: - [facility] [id number] Pricing Director: Luis Mukherjee PhD, Phone: [phone] PERFORMED BY: [address] [address] PATHOLOGIST SHELL ASSEMBLER SUAD ARREAGA M.D. Performed By: #### C BC, BMP #### [facility] [address] #### FRUC #### [facility] , Fructosamine [Moles/volume] in Serum or PlasmaOrdered By: David Mcfarland on 08-28-2023 Fructosamine [Moles/Vol] 205 umol/L 0-285 [facility] Comment on above: Published reference interval for apparently healthysubjects between age 20 and 60 is 205 - 285 umol/L and in apoorly controlled diabetic population is 228 - 563 umol/Lwith a mean of 396 umol/L.Performed at: [facility] [address] [id number] Director: Luis Mukherjee PhD, Phone: [phone] Glucose [Mass/volume] in Ser um or PlasmaOrdered By: David Mcfarland on 08-28-2023 Glucose [Mass/Vol] 98 mg/dL 70-100 [facility] Comment on above: ADA recommended refe rence rangeRandom Glucose Reference Range is dependent on time and content of last meal. Glucose of more than 200 mg/dL in a nonstressed, ambulatory subject supports the diagnosis of Diabetes Mellitus. Hematocrit Auto (Bld) [Volum e fraction]Ordered By: David Mcfarland on 08-28-2023 Hematocrit (Bld) [Volume fraction] 36.9 % 34.0-46.4 [facility] Hemoglobin [Mass/volume] in BloodOrdered By: David Mcfarland on 08-28-2023 Hemoglobin (Bld) [Mass/Vol] 11.9 g/dL 11.8-15.4 [facility] Ketones Auto test strip (U) [Mass/Vol]Ordered By: David Mcfarland on 08-28-2023 Ketones (U) [Mass/Vol] Negative Negative [facility] Laboratory - UrinalysisOrder ed By: David Mcfarland on 08-28-2023 Hyaline casts LM Ql (Urine sed) 0-8 [LPF] 0-8 [facility] Leukocytes [#/volume] correc janell for nucleated erythrocytes in Blood by Automated counOrdered By: David Mcfarland on 08-28-2023 WBC corrected for nucl RBC Auto (Bld) [#/Vol] 6.4 10*3/uL 3.8-11.6 [facility] Lymphocytes Auto (Bld) [#/Vo l]Ordered By: David Mcfarland on 08-28-2023 Lymphocytes (Bld) [#/Vol] 1.6 10*3/uL 1.00-4.8 [facility] Lymphocytes/100 WBC Auto (Bl d)Ordered By: David Mcfarland on 08-28-2023 Lymphocytes/100 WBC (Bld) 25.3 % . [facility] MCH Auto (RBC) [Entitic mass ]Ordered By: David Mcfarland on 08-28-2023 MCH (RBC) [Entitic mass] 25.0 pg 24.7-34.3 [facility] MCHC Auto (RBC) [Mass/Vol]Or dered By: David Mcfarland on 08-28-2023 MCHC (RBC) [Mass/Vol] 32.1 g/dL 32.0-35.0 [facility] MCV Auto (RBC) [Entitic vol] Ordered By: David Mcfarland on 08-28-2023 MCV (RBC) [Entitic vol] 78.0 fL 80-100 [facility] Monocytes Auto (Bld) [#/Vol] Ordered By: David Mcfarland on 08-28-2023 Monocytes (Bld) [#/Vol] 0.5 10*3/uL 0.0-0.8 [facility] Monocytes/100 WBC Auto (Bld) Ordered By: David Mcfarland on 08-28-2023 Monocytes/100 WBC (Bld) 7.6 % . [facility] Neutrophils Auto (Bld) [#/Vo l]Ordered By: David Mcfarland on 08-28-2023 Neutrophils (Bld) [#/Vol] 4.2 10*3/uL 1.8-7.7 [facility] Neutrophils/100 WBC Auto (Bl d)Ordered By: David Mcfarland on 08-28-2023 Neutrophils/100 WBC (Bld) 65.0 % . [facility] Nitrite Test strip Ql (U)Ord ered By: David Mcfarland on 08-28-2023 Nitrite Ql (U) Negative Negative [facility] No Panel InformationOrdered By: David Mcfarland on 08-28-2023 Estimated GFR (CKD-EPI) > 60.0 mL/Min [facility] Pharmacy Creatinine Clearance (Chem N/A [facility] Nucleated erythrocytes [Pres ence] in Blood by Automated countOrdered By: David Mcfarland on 08-28-2023 Nucleated RBC Auto Ql (Bld) 0.1 /100{WBC} 0-0.5 [facility] PST Type and Screenon 2022 ABO and Rh group Nom (Bld) Blood group B Rh(D) positive Normal [facility] Comment on above: Order Comment: Date of Surgery: [id number] Platelet mean volume Auto (B ld) [Entitic vol]Ordered By: David Mcfarland on 08-28-2023 Platelet mean volume (Bld) [Entitic vol] 8.0 fL 6.3-10.7 [facility] Platelets Auto (Bld) [#/Vol] Ordered By: David Mcfarland on 08-28-2023 Platelets (Bld) [#/Vol] 387 10*3/uL 150-450 [facility] Potassium [Moles/volume] in Serum or PlasmaOrdered By: David Mcfarland on 08-28-2023 Potassium [Moles/Vol] 4.2 mmol/L 3.5-5.1 [facility] Protein Auto test strip (U) [Mass/Vol]Ordered By: David Mcfarland on 08-28-2023 Protein (U) [Mass/Vol] Negative Negative [facility] RBC Auto (Bld) [#/Vol]Ordere d By: David Mcfarland on 08-28-2023 RBC (Bld) [#/Vol] 4.74 10*6/uL 3.60-5.00 [facility] Serum or plasma anion gap de terminationOrdered By: David Mcfarland on 08-28-2023 Anion gap [Moles/Vol] 11.1 mmol/L 6.0-15.0 [facility] Sodium [Moles/volume] in Ser um or PlasmaOrdered By: David Mcfarland on 08-28-2023 Sodium [Moles/Vol] 140 mmol/L 136-145 [facility] Specific gravity Auto test s trip (U) [Rel density]Ordered By: David Mcfarland on 08-28-2023 Specific gravity (U) [Rel density] 1.020 1.001-1.03 0 [facility] Squamous epithelial cells de tection in urine sediment by light microscopyOrdered By: David Mcfarland on 08-28-2023 Epithelial cells.squamous LM Ql (Urine sed) 3-4 [HPF] 0-2 [facility] Urea nitrogen [Mass/volume] in Serum or PlasmaOrdered By: David Mcfarland on 08-28-2023 Urea nitrogen [Mass/Vol] 17 mg/dL 7-25 [facility] Urine Cultureon 08-28-2023 Bacteria identified Cx Nom (U) 50,000 colonies/ml mixed bacterial skin contaminants 2 Days PERFORMED BY: [place] [address] PATHOLOGIST SHELL ASSEMBLER SUAD ARREAGA M.D. [facility] Comment on above: Performed By: #### C BC, BMP #### [address] #### FRUC #### [facility] , Urine bacteria detection by automated methodOrdered By: David Mcfarland on 08-28-2023 Bacteria Auto Ql (U) None seen None Seen [facility] Urine clarity by refractomet ry automatedOrdered By: David Mcfarland on 08-28-2023 Clarity Refractometry automated (U) Clear Clear [facility] Urine culture routineOrdered By: David Mcfarland on 08-28-2023 Bacteria identified Cx Nom (U) 2 Days [facility] Urine glucose measurement by automated test strip (mass/volume)Ordered By: David Mcfarland on 08-28-2023 Glucose Auto test strip (U) [Mass/Vol] Normal mg/dL Normal [facility] Urine hemoglobin detection b y automated test stripOrdered By: David Mcfarland on 08-28-2023 Hemoglobin Auto test strip Ql (U) Negative Negative [facility] Urine leukocyte esterase det ection by automated test stripOrdered By: David Mcfarland on 08-28-2023 Leukocyte esterase Auto test strip Ql (U) 3+ Negative [facility] Urobilinogen Auto test strip (U) [Mass/Vol]Ordered By: David Mcfarland on 08-28-2023 Urobilinogen (U) [Mass/Vol] Normal mg/dL Normal [facility] WBC Auto (Bld) [#/Vol]Ordere d By: David Mcfarland on 08-28-2023 WBC (Bld) [#/Vol] 6.4 10*3/uL 3.8-11.6 [facility] pH Auto test strip (U)Ordere d By: David Mcfarland on 08-28-2023 pH (U) 5.5 [pH] 5.0-9.0 [facility] XR hip RT min 2V(w/wo pelvis )*on 08-15-2023 XR hip RT min 2V(w/wo pelvis)* [facility] [place] [address] XRay Report Signed Patient: Nicol Smith MR#: [id number] 9 : 1960 Acct:[id number] Age/Sex: 63 / F ADM Date: 08/15/23 Loc: [facility] Room: Type: [facility] Attending Dr: aDvid Mcfarland II, MD Copies to: David Mcfarland [...] Matamoros Jr., D.O.08/15/2023 4:18 PM Dictation Location: [place] [address] Transcribed By: [facility] 08/15/231617 Dictated By: Stalin Matamoros Jr, DO 08/15/231616 Signed By: 08/15/231617 [facility] Office Visiton 07-16-2023 Follow-up visit [id number] Nicol Smith 1960 F Date Provider Department Center 07/16/2023 KIMBERLY BAKER [facility] Family History Problem Relation Age of Onset Diabetes Father Heart failure Father Diabetes Paternal Grandmother Diabetes Paternal Grandfather Family Status - Relation Status Age at Father Paternal Grandmother Paternal Grandfather Level of Service:48958 UT OFFICE/OUTPATIENT ESTABLISHED MOD MDM 30-39 MIN Normal [facility] TSHon 01-19-2023 TSH 5.502 uIU/mL Critically high 0.358-3.74 0 [facility] Comment on above: Performed By: #### T SH ####[facility] [address] [place] [address]Dr. Darrick Cao GTT 2 HRon 12-12-2022 Glucose [Mass/Vol] 117 mg/dL Critically high 74-106 [facility] Comment on above: Performed By: #### G TT2 ####[facility] [address] [place] [address]Dr. Darrick Cao Glucose [Mass/Vol] 227 mg/dL Normal [facility] Comment on above: Performed By: #### G TT2 ####[facility] [address] [place] [address]Dr. Darrick [facility] Glucose [Mass/Vol] 121 mg/dL Normal [facility] Comment on above: Performed By: #### G TT2 ####[facility] [address] [place] [address]Dr. Adrylan Cao TSHon 12-12-2022 TSH 6.852 uIU/mL Critically high 0.358-3.74 0 [facility] Comment on above: Performed By: #### P OCGLUC #### [facility] Laboratory [address] [address] [address] Darrick Cao Outside Colonoscopyon 2022 Outside Colonoscopy [id number]#[id number]:127 [facility] [place] Reminderson 12-07-2022 Reminders - From: Yu Waters LPN To: N - Clinical; Sent: 12/07/2022 08:47:38 EST Show up: 11/08/2032 07:00:00 EST Subject: colonoscopy recall Due Date/Time: 12/06/2032 07:00:00 EST Reminder/Recall Patient is due for screening colonoscopy 12/06/2032. [facility] [place] Consent for Procedure/Surger yon 11-09-2022 Consent for Procedure/Surgery [id number]#[id number]:127 [facility] [place] Consent for Procedure/Surgery [id number]:127 [facility] [place] Facesheeton 11-09-2022 Facesheet [id number]#1.00CD:127 [facility] [place] Ambulatory Visit Summaryon 0 11-08-2022 Ambulatory Visit Summary NICOL SMITH :1960 Visit Date:11/08/2022 Ambulatory Visit Instructions [...] Screening for malignant neoplasm of colon Normal [facility] MG MAMM SCREEN 3D BONNIE CADon 11-03-2022 MG MAMM SCREEN 3D BONNIE CAD Patient: NICOL SMITH Exam Date: 11/03/2022 : 1960 Gender:F Ordering : DR FRIEDA LOCKE . Admission #: [id number] Family : Order #: [id number] CLICK HERE TO VIEW EXAM RADIOLOGY REPORT [...] uterine cancer at age 52. LOCATION: [facility] BREAST COMPOSITION: Scattered areas fibroglandular density. FINDINGS: [...] Kelly MD on 11/03/2022 at 11:04 Normal [facility] XR DEXA BONE DENSITYon 11-03 [...] by: ARIELA SCHWAB Date: 2022-11-03 11:11 Normal [facility] Comprehensive Metabolic Pane yuli 10-30-2022 Urea nitrogen [Mass/Vol] 20 mg/dL [employer] Other Comprehensive Metabolic Panel [employer] Other Comprehensive Metabolic Panel >60 [employer] Other Comprehensive Metabolic Panel 4.2 [employer] Other Albumin [Mass/Vol] 3.7 g/dL Normal 3.4-5.0 [employer] Other Comment on above: Performed By: #### T SH, CMP, LIPID ####[facility] [address] [place] [id number]. Darrick Cao Albumin/Globulin [Mass ratio] 0.9 {ratio} Normal [employer] Other Comment on above: Performed By: #### T SH, CMP, LIPID ####[facility] [address] [place] [address]Dr. Darrick Cao ALP [Catalytic activity/Vol] 112 U/L Normal 46-116 [employer] Other Comment on above: Performed By: #### T SH, CMP, LIPID ####[facility] [address] [place], [place] [address]Dr. Darrick Cao ALT [Catalytic activity/Vol] 34 U/L Normal 14-59 [employer] Other Comment on above: Performed By: #### T SH, CMP, LIPID ####[facility] [address] [place] [id number]. Darrick Cao AST [Catalytic activity/Vol] 17 U/L Normal 15-37 [employer] Other Comment on above: Performed By: #### T SH, CMP, LIPID ####[facility] [address] [place] [address]Dr. Darrick Cao Bilirubin [Mass/Vol] 0.4 mg/dL Normal 0.2-1.0 [facility] [employer] Other Comment on above: Performed By: #### T SH, CMP, LIPID ####[facility] [address] [place], [place] [address]Dr. Darrick Cao Calcium [Mass/Vol] 9.2 mg/dL Normal 8.5-10.1 [employer] Other Comment on above: Performed By: #### T SH, CMP, LIPID ####[facility] [address] [place] [address]Dr. Darrick Cao Chloride [Moles/Vol] 105 mmol/L Normal 98-107 [facility] [employer] Other Comment on above: Performed By: #### T SH, CMP, LIPID ####[facility] [address] [place] [address]Dr. Darrick Cao CO2 [Moles/Vol] 27.0 mmol/L Normal 21.0-32.0 [facility] [employer] Other Comment on above: Performed By: #### T SH, CMP, LIPID ####[facility] [address] [place] [address]Dr. Darrick Cao Creatinine [Mass/Vol] 0.86 mg/dL Normal 0.55-1.02 [facility] [employer] Other Comment on above: Performed By: #### T SH, CMP, LIPID ####[facility] [address] [place] [address]Dr. Darrick Cao Glucose [Mass/Vol] 114 mg/dL Critically high 74-106 [facility] [employer] Other Comment on above: Performed By: #### T SH, CMP, LIPID ####[facility] [address] [place] [address]Dr. Darrick Cao Potassium [Moles/Vol] 3.9 mmol/L Normal 3.5-5.1 [facility] [employer] Other Comment on above: Performed By: #### T SH, CMP, LIPID ####[facility] [address] [place] [address]Dr. Darrick Cao Protein [Mass/Vol] 7.9 g/dL Normal 6.4-8.2 [facility] [employer] Other Comment on above: Performed By: #### T SH, CMP, LIPID ####[facility] [address] [place], [place] [address]Nw. Adryyakov Cao Sodium [Moles/Vol] 143 mmol/L Normal 136-145 [employer] Other Comment on above: Performed By: #### T SH, CMP, LIPID ####[facility] [address] [place], [place] [address]Jf. Darrick Cao FREE T4on 10-30-2022 Free T4 [Mass/Vol] 0.77 ng/dL Normal 0.76-1.46 [facility] Comment on above: Performed By: #### F T4 ####[facility] [address] [place] [id number]. Darrick Cao LIPID PROFILEon 10-30-2022 CHOL-HDL RATIO NORM SEE BELOW Normal [facility] Comment on above: Result Comment: 3.3 - 4.4 LOW RISK 4.4 - 7.1 AVERAGE RISK 7.1 - 11.0 MODERATE RISK >11.0 HIGH RISK Performed By: #### T SH, CMP, LIPID ####[facility] [address] [place] [id number]. Darrick Cao Cholesterol in LDL [Mass/Vol] 84.6 mg/dL Normal [facility] Comment on above: Performed By: #### T SH, CMP, LIPID ####[facility] [address] [place], [place] [address]Zb. Darrick Cao HDL NORMAL > or = 60 mg/dl - LO W CARDIOVASCULAR RISK <40 mg/dl - HIGH CARDIOVASCULAR RISK Normal [facility] Comment on above: Performed By: #### T SH, CMP, LIPID ####[facility] [address] [place], [place] [address]At. Darrick Cao LDL CALC NORMAL SEE BELOW Normal [facility] Comment on above: Result Comment: <100 mg/dl OPTIMAL 100 - 129 mg/dl NEAR OR ABOVE OPTIMAL 130 - 159 mg/dl BORDERLINE HIGH 160 - 189 mg/dl HIGH >190 mg/dl VERY HIGH Performed By: #### T SH, CMP, LIPID ####[facility] [address] [place] [id number]. Darrick Cao Triglyceride [Mass/Vol] 222 mg/dL Critically high <=150 [facility] Comment on above: Performed By: #### T SH, CMP, LIPID ####[facility] [address] [place], [place] [address]Ct. Darrick Cao VLDL CALC 44.4 mg/dL Normal [facility] Comment on above: Performed By: #### T SH, CMP, LIPID ####[facility] [address] [place], [place] [address]Gi. Darrick Cao Lipid Panelon 10-30-2022 Cholesterol in LDL Elph Qn 84.6 [employer] [facility] [employer] Other Lipid Panel 222 [employer] Other Lipid Panel 44.4 [employer] Other Cholesterol [Mass/Vol] 185 mg/dL Normal <=200 [employer] Other Comment on above: Performed By: #### T SH, CMP, LIPID ####[facility] [address] [place], [place] [address]Ko. Darrick Cao Cholesterol in HDL [Mass/Vol] 56 mg/dL Normal 40-60 [employer] Other Comment on above: Performed By: #### T SH, CMP, LIPID ####[facility] [address] [place], [place] [address]Od. Darrick Cao Cholesterol.total/Cho lesterol in HDL [Mass ratio] 3.3 {ratio} Normal [facility] [employer] Other Comment on above: Performed By: #### T SH, CMP, LIPID ####[facility] [address] [place], [place] [address]KxMiguel Cao PROF 14(COMP METB)on 023 Anion gap [Moles/Vol] 14.9 mmol/L Normal [facility] Comment on above: Performed By: #### T SH, CMP, LIPID ####[facility] [address] [place] [id number] Cao EGFR-AF ROMANIAN >60 Normal >=60 [facility] Comment on above: Performed By: #### T SH, CMP, LIPID ####[facility] [address] [place] [address]Dr. Darrick Cao EGFR-NON AF ROMANIAN >60 Normal >=60 [facility] Comment on above: Performed By: #### T SH, CMP, LIPID ####[facility] [address] [place] [address]Dr. Darrick Cao Globulin (S) [Mass/Vol] 4.2 g/dL Normal [facility] Comment on above: Performed By: #### T SH, CMP, LIPID ####[facility] [address] [place] [address]Dr. Darrick Cao Urea nitrogen [Mass/Vol] 20.0 mg/dL Critically high 7.0-18.0 [facility] Comment on above: Performed By: #### T SH, CMP, LIPID ####[facility] [address] [place] [address]DrMiguel Cao Urea nitrogen/Creatinine [Mass ratio] 23.3 mg/mg Normal [facility] Comment on above: Performed By: #### T SH, CMP, LIPID ####[facility] [address] [place] [address]Dr. Darrick Cao TSHon 10-30-2022 TSH 6.415 uIU/mL Critically high 0.358-3.74 0 [facility] Comment on above: Performed By: #### T SH, CMP, LIPID ####[facility] [address] [place] [address]Dr. Darrick Cao Thyroid Stim Hormone w/Rflxo n 10-30-2022 Thyroid Stim Hormone w/Rflx 6.415 [employer] Other VITAMIN B12on 10-30-2022 Cobalamin (Vitamin B12) [Mass/Vol] 664.0 pg/mL Normal 193.0-986. 0 [facility] Comment on above: Performed By: #### V ITB12 #### [facility] [address] [address] [address] Darrick Cao Vitamin B12on 10-30-2022 Cobalamin (Vitamin B12) [Mass/Vol] 664 pg/mL [employer] Other Automated erythrocytes count in urine sediment (number/area)Ordered By: Waqas Pierce on 10-23-2022 RBC Auto (Urine sed) [#/Area] 0-1 [HPF] 0-4 [facility] Automated leukocytes count i n urine sediment (number/area)Ordered By: Waqas Pierce on 10-23-2022 WBC Auto (Urine sed) [#/Area] 10-19 [HPF] 0-4 [facility] Automated urine color determ inationOrdered By: Waqas Pierce on 10-23-2022 Color (U) Yellow Normal Yellow [facility] Comment on above: Order Comment: Name Collection Type:: Collection Method Unknown Performed By: #### C UU, ADDONUAPLUS #### [facility] [address] [place] [id number] [place] Bilirubin Test strip Ql (U)O rdered By: Waqas Pierce on 10-23-2022 Bilirubin Ql (U) Negative Negative [facility] Dipstick and Microscopicon 0 10-23-2022 Appearance (U) Clear Normal Clear [facility] Comment on above: Order Comment: Name Collection Type:: Collection Method Unknown Performed By: #### C UU, ADDONUAPLUS #### [facility] [address] [place] [address] [place] Bacteria,Urine None Seen Normal None Seen [facility] [facility] Comment on above: Order Comment: Name Collection Type:: Collection Method Unknown Performed By: #### C UU, ADDONUAPLUS #### [facility] [address] [place] [address] [place] Bilirubin,Urine Negative Normal Negative [facility] Comment on above: Order Comment: Name Collection Type:: Collection Method Unknown Performed By: #### C UU, ADDONUAPLUS #### [facility] [address] [place] [address] [place] Glucose Ql (U) Normal Normal Normal [facility] Comment on above: Order Comment: Name Collection Type:: Collection Method Unknown Performed By: #### C UU, ADDONUAPLUS #### [address] Hyaline Casts,Urine 0-8 Normal 0-8 [facility] Comment on above: Order Comment: Name Collection Type:: Collection Method Unknown Result Comment: PERF ORMED BY: [place] [address] PATHOLOGIST SHELL ASSEMBLER SUAD ARREAGA M.D. Performed By: #### C UU, ADDONUAPLUS #### [address] Ketones Ql (U) Negative Normal Negative [facility] Comment on above: Order Comment: Name Collection Type:: Collection Method Unknown Performed By: #### C UU, ADDONUAPLUS #### [address] Leukocyte esterase Test strip Ql (U) 3+ High Negative [facility] Comment on above: Order Comment: Name Collection Type:: Collection Method Unknown Performed By: #### C UU, ADDONUAPLUS #### [address] Nitrite,Urine Negative Normal Negative [facility] Comment on above: Order Comment: Name Collection Type:: Collection Method Unknown Performed By: #### C UU, ADDONUAPLUS #### [place] [address] [place] Occult Blood,Urine Negative Normal Negative [facility] Comment on above: Order Comment: Name Collection Type:: Collection Method Unknown Result Comment: PERF ORMED BY: [place] [address] PATHOLOGIST SHELL ASSEMBLER SUAD ARREAGA M.D. Performed By: #### C UU, ADDONUAPLUS #### [place] [address] [place] Protein,Urine Negative Normal Negative [facility] Comment on above: Order Comment: Name Collection Type:: Collection Method Unknown Performed By: #### C UU, ADDONUAPLUS #### [address] [address] [place] RBC LM.HPF (Urine sed) [#/Area] 0 /[HPF] Normal 0-4 [facility] Comment on above: Order Comment: Name Collection Type:: Collection Method Unknown Performed By: #### C UU, ADDONUAPLUS #### [facility] [address] [place] [address] Specificy Dema,Urine 1.016 Normal 1.001-1.03 0 [facility] Comment on above: Order Comment: Name Collection Type:: Collection Method Unknown Performed By: #### C UU, ADDONUAPLUS #### [facility] [address] [place] [address] Squamous Epithelial Cell,Urine 5-9 High 0-2 [facility] Comment on above: Order Comment: Name Collection Type:: Collection Method Unknown Performed By: #### C UU, ADDONUAPLUS #### [facility] [address] [place] [address] Urobilinogen,Urine Normal Normal Normal [facility] Comment on above: Order Comment: Name Collection Type:: Collection Method Unknown Performed By: #### C UU, ADDONUAPLUS #### [facility] [address] [place] [address] WBC,Urine 10-19 High 0-4 [facility] Comment on above: Order Comment: Name Collection Type:: Collection Method Unknown Performed By: #### C UU, ADDONUAPLUS #### [facility] [address] [place] [address] Ketones Auto test strip (U) [Mass/Vol]Ordered By: Waqas Pierce on 10-23-2022 Ketones (U) [Mass/Vol] Negative Negative [facility] Laboratory - UrinalysisOrder ed By: Waqas Pierce on 10-23-2022 Hyaline casts LM Ql (Urine sed) 0-8 [LPF] 0-8 [facility] Nitrite Test strip Ql (U)Ord ered By: Waqas Pierce on 10-23-2022 Nitrite Ql (U) Negative Negative [facility] Protein Auto test strip (U) [Mass/Vol]Ordered By: Waqas Pierce on 10-23-2022 Protein (U) [Mass/Vol] Negative Negative [facility] Specific gravity Auto test s trip (U) [Rel density]Ordered By: Waqas Pierce on 10-23-2022 Specific gravity (U) [Rel density] 1.016 1.001-1.03 0 [facility] Squamous epithelial cells de tection in urine sediment by light microscopyOrdered By: Waqas Pierce on 10-23-2022 Epithelial cells.squamous LM Ql (Urine sed) 5-9 [HPF] 0-2 [facility] Urine Cultureon 10-23-2022 Bacteria identified Cx Nom (U) >100,000 colonies/ml mixed bacterial skin contaminants 2 Days PERFORMED BY: [place] [address] PATHOLOGIST SHELL ASSEMBLER SUAD ARREAGA M.D. [facility] Comment on above: Performed By: #### C UU, ADDONUAPLUS #### [address] Bacteria identified Cx Nom (U) [employer] Other Urine bacteria detection by automated methodOrdered By: Waqas Pierce on 10-23-2022 Bacteria Auto Ql (U) None seen None Seen [facility] Urine clarity by refractomet ry automatedOrdered By: Waqas Pierce on 10-23-2022 Clarity Refractometry automated (U) Clear Clear [facility] Urine glucose measurement by automated test strip (mass/volume)Ordered By: Waqas Pierce on 10-23-2022 Glucose Auto test strip (U) [Mass/Vol] Normal mg/dL Normal [facility] Urine hemoglobin detection b y automated test stripOrdered By: Waqas Pierce on 10-23-2022 Hemoglobin Auto test strip Ql (U) Negative Negative [facility] Urine leukocyte esterase det ection by automated test stripOrdered By: Waqas Pierce on 10-23-2022 Leukocyte esterase Auto test strip Ql (U) 3+ Negative [facility] Urine pH measurement by auto mated test stripOrdered By: Waqas Pierce on 10-23-2022 pH (U) 6.0 [pH] Normal 5.0-9.0 [facility] Comment on above: Order Comment: Name Collection Type:: Collection Method Unknown Performed By: #### C UU, FE #### [facility] [address] Urobilinogen Auto test strip (U) [Mass/Vol]Ordered By: Waqas Pierce on 10-23-2022 Urobilinogen (U) [Mass/Vol] Normal mg/dL Normal [facility] A1C HEMOGLOBINon 10-13-2022 HbA1c (Bld) [Mass fraction] 5.9 % [employer] [facility] [employer] Other HbA1c (Bld) [Mass fraction]o n 10-13-2022 A1C HEMOGLOBIN [facility] [employer] Other XR FOOT LT MIN 3 VIEWSon [...] by: ALEX RYAN Date: 2022-09-20 16:40 Normal [facility] Office Visiton 09-06-2022 Follow-up visit [id number] Nicol Smith 1960 F Date Provider Department Center 09/06/2022 KIMBERLY BAKER [facility] Family History Problem Relation Age of Onset Diabetes Father Heart failure Father Diabetes Paternal Grandmother Diabetes Paternal Grandfather Family Status - Relation Status Age at Father Paternal Grandmother Paternal Grandfather Level of Service:87974 [place] OFFICE/OUTPATIENT ESTABLISHED LOW MDM 20-29 MIN Normal [facility] XR LSPINE 2_3 VIEWSon 2021 XR LSPINE 2_3 VIEWS EXAMINATION: XR LSPI NE 2_3 VIEWS HISTORY: Low back pain COMPARISON: 09/26/2019 FINDINGS: BONES: Mild dextrocurvature. Moderate to severe spondylosis and facet osteoarthropathy DISC SPACES: Multilevel disc space narrowing most significant at L5-S1 PARASPINOUS: Negative. No paraspinous abnormality is seen. OTHER: Severe right hip osteoarthropathy with gapr-dx-wrqi articulation. Left hip arthroplasty IMPRESSION: Moderate to severe degenerative changes Electronically authenticated by: SHAWNEE KELLY Date: 2022-08-20 11:47 Normal [facility] PAP ACOG PANEL 2: 30 to 65on 06-13-2022 . . Normal [facility] Comment on above: Result Comment: Perf ormed at: WB Performed By: #### [id number] ####[facility] [address] [place] [address]DrMiguel Coa Age Gdln ACOG Testing 30-65 Normal [facility] Comment on above: Performed By: #### 4 [id number] ####[facility] [address] [place] [address]Dr. Darrick Cao DIAGNOSIS: Comment Normal [facility] Comment on above: Result Comment: NEGA TIVE FOR INTRAEPITHELIAL LESION OR MALIGNANCY. THIS SPECIMEN WAS RESCREENED PART OF OUR INTERNATIONAL GUEST COORDINATOR PROGRAM. Performed at: WB Performed By: #### 4 [id number] ####[facility] [address] [place] [address]DrMiguel Cao HPV Aptima Negative Normal Negative [facility] Comment on above: Result Comment: This nucleic acid amplification test detects fourteen high-risk HPV types (16,18,31,33,35,39,45,51,52,56,58,59,66,68) without differentiation. Performed at: =G Performed By: #### 4 [id number] ####[facility] [address] [place] [address]DrMiguel Cao Methodology: Comment Normal [facility] Comment on above: Result Comment: This liquid based ThinPrep(R) pap test was screened with the use of an image guided system. Performed at: WB Performed By: #### 4 [id number] ####[facility] [address] [place] [address]Dr. Darrick Cao Note: Comment Normal [facility] Comment on above: Result Comment: The Pap smear is a screening test designed to aid in the detection of premalignant and malignant conditions of the uterine cervix. It is not a diagnostic procedure and should not be used as the sole means of detecting cervical cancer. Both false-positive and false-negative reports do occur. . Performed at: WB Performed By: #### 4 [id number] ####[facility] [address] [place] [address]Dr. Darrick Cao Performed by: Comment Normal [facility] Comment on above: Result Comment: Solange Ann, Custodial Laborer (ASCP) Performed at: WB Performed By: #### 4 [id number] ####[facility] [address] [place], [place] [address]Dr. Darrick Cao QC reviewed by: Comment Normal [facility] Comment on above: Result Comment: Navi Rush, Supervisory Custodial Laborer (ASCP) Performed at: WB Performed By: #### 4 [id number] ####[facility] [address] [place], [place] [address]Dr. Darrick Cao Specimen adequacy: Comment Normal [facility] Comment on above: Result Comment: Sati sfactory for evaluation. Endocervical and/or squamous metaplastic cells (endocervical component) are present. Performed at: WB Performed By: #### 4 [id number] ####[facility] [address] [place], [place] [address]Dr. Darrick Cao US PELVIS AND TRANSVAGon US [...] ARIELA SCHWAB Date: 2022-06-13 14:50 Normal [facility] ACID FAST SMEAR AND CXon Acid Fast Culture Negative Normal [facility] Comment on above: Result Comment: No a liliya fast bacilli isolated after 6 weeks. Performed By: #### A FB ####[facility] [address] [place], [place] [address]Dr. Darrick Cao Acid Fast Smear Negative Normal [facility] Comment on above: Performed By: #### A FB ####[facility] [address] [place], [place] [address]Dr. Darrick Cao [employer] Specimen Processing Tissue Grinding Normal [facility] Comment on above: Performed By: #### A FB ####[facility] [address] [place] [address]Dr. Darrick Cao FUNGAL CULTUREon 05-23-2022 Fungus (Mycology) Culture Final report Normal [facility] Comment on above: Performed By: #### C XFUN ####[facility] [address] [place] [id number]. Darrick Cao Fungus Stain Final report Normal [facility] Comment on above: Performed By: #### C XFUN ####[facility] [address] [place] [id number]. Darrick Cao Result 1 Comment Normal [facility] Comment on above: Result Comment: MAYE/ Calcofluor preparation: no fungus observed. Performed By: #### C XFUN ####[facility] [address] [place], [place] [address]Dr. Darrick Cao Result Comment: No y east or mold isolated after 4 weeks. WOUND CULTUREon 04-28-2022 Bacteria identified Aer cx Nom (Unsp spec) Final report Normal [facility] Comment on above: Performed By: #### C XWND #### [facility] [address] [address] [address] Darrick Cao Result 1 Comment Normal [facility] Comment on above: Result Comment: No g rowth in 36 - 48 hours. Performed By: #### C XWND #### [facility] [address] [address] [address] Darrick Cao CULTURE WOUNDon 04-26-2022 CULTURE [...] S F Vancomycin 1 S F Normal [facility] Comment on above: Performed By: #### W OUNDCX ####[facility] [address] [place] [address]Dr. Darrick Cao CBC AUTO DIFFon 04-25-2022 BASO # 0.0 103/ul Normal 0.0-0.1 [facility] Comment on above: Performed By: #### C XWND #### [facility] [address] [address] [address] Darrick Cao Basophils/100 WBC (Bld) 0.5 % Normal 0.2-2.0 [facility] Comment on above: Performed By: #### C XWND #### [facility] [address] [place] [address] Dr. Darrick Cao EO # 0.1 103/ul Normal 0.0-0.7 [facility] Comment on above: Performed By: #### C XWND #### [facility] [address] [place] [address] Dr. Darrick Cao Eosinophils/100 WBC (Bld) 1.1 % Normal 0.9-7.0 [facility] Comment on above: Performed By: #### C XWND #### [facility] [address] [place] [address] Dr. Darrick Cao Erythrocyte distribution width (RBC) [Ratio] 15.8 % Critically high 11.0-15.0 [facility] Comment on above: Performed By: #### C XWND #### [facility] [address] [place] [address] Dr. Darrick Cao Hematocrit (Bld) [Volume fraction] 31.7 % Critically low 36.0-48.0 [facility] Comment on above: Performed By: #### C XWND #### [facility] [address] [place] [address] Dr. Darrick Cao Hemoglobin (Bld) [Mass/Vol] 10.1 g/dL Critically low 12.0-16.0 [facility] Comment on above: Performed By: #### C XWND #### [facility] [address] [place] [address] Dr. Darrick Cao IG # 0.02 10e3/ul Normal 0.00-0.03 [facility] Comment on above: Performed By: #### C XWND #### [facility] [address] [place] [address] Dr. Darrick Cao IG % 0.3 % Normal 0.0-0.5 [facility] Comment on above: Performed By: #### C XWND #### [facility] [address] [place] [address] Dr. Darrick Cao LYMPH # 1.8 103/ul Normal 1.2-3.8 [facility] Comment on above: Performed By: #### C XWND #### [facility] [address] [place] [address] Dr. Darrick Cao Lymphocytes/100 WBC (Bld) 24.3 % Normal 20.5-60.0 [facility] Comment on above: Performed By: #### C XWND #### [facility] [address] [place] [address] Dr. Darrick Cao MANUAL DIFF REQ NO Normal [facility] Comment on above: Performed By: #### C XWND #### [facility] [address] [address] [address] Darrick Cao MCH (RBC) [Entitic mass] 28.0 pg Normal 26.7-34.0 [facility] Comment on above: Performed By: #### C XWND #### [facility] [address] [place] [address] Dr. Darrick Cao MCHC (RBC) [Mass/Vol] 31.9 g/dL Normal 29.9-35.2 [facility] Comment on above: Performed By: #### C XWND #### [facility] [address] [place] [address] Dr. Darrick Cao MCV (RBC) [Entitic vol] 87.8 fL Normal 81.0-99.0 [facility] Comment on above: Performed By: #### C XWND #### [facility] [address] [place] [address] Dr. Darrick Cao MONO # 0.5 103/ul Normal 0.3-0.8 [facility] Comment on above: Performed By: #### C XWND #### [facility] [address] [place] [address] Dr. Darrick Cao Monocytes/100 WBC (Bld) 7.2 % Normal 1.7-12.0 [facility] Comment on above: Performed By: #### C XWND #### [facility] [address] [place] [address] Dr. Darrick Cao NEUT # 5.0 103/ul Normal 1.4-6.5 [facility] Comment on above: Performed By: #### C XWND #### [facility] [address] [place] [address] Dr. Darrick Cao Neutrophils/100 WBC (Bld) 66.6 % Normal 43.0-75.0 [facility] Comment on above: Performed By: #### C XWND #### [facility] [address] [place] [address] Dr. Darrick Cao Platelet mean volume (Bld) [Entitic vol] 9.6 fL Normal 9.5-13.5 [facility] Comment on above: Performed By: #### C XWND #### [facility] [address] [address] [address] Darrick Cao PLT 295 103/ul Normal 150-450 [facility] Comment on above: Performed By: #### C XWND #### [facility] [address] [address] [address] Darrick Cao RBC 3.61 106/ul Critically low 4.20-5.40 [facility] Comment on above: Performed By: #### C XWND #### [facility] [address] [address] [address] Darrick Cao WBC 7.5 103/ul Normal 4.0-11.0 [facility] Comment on above: Performed By: #### C XWND #### [facility] [address] [address] [address] Darrick Cao ER URINE PROFILEon 2 Bilirubin Ql (U) Negative Normal NEGATIVE [facility] Comment on above: Performed By: #### U MICRO, ERUR ####[facility] [address] [place] [address]DrMiguel Cao Clarity (U) CLEAR Normal CLEAR [facility] Comment on above: Performed By: #### U MICRO, ERUR ####[facility] [address] [place] [address]Dr. Darrick Cao Color (U) LT. YELLOW Normal YELLOW [facility] Comment on above: Performed By: #### U MICRO, ERUR ####[facility] [address] [place] [address]DrMiguel Cao ERUAHD A micrscopic examina tion will be performed if indicated. Normal [facility] Comment on above: Performed By: #### U MICRO, ERUR ####[facility] [address] [place] [address]Dr. Darrick Cao Glucose Ql (U) Negative Normal NEGATIVE [facility] Comment on above: Performed By: #### U MICRO, ERUR ####[facility] [address] [place] [address]Dr. Darrick Cao Hemoglobin Ql (U) SMALL Abnormal NEGATIVE [facility] Comment on above: Performed By: #### U MICRO, ERUR ####[facility] [address] [place], [place] [address]Dr. Darrick Cao Ketones Ql (U) Negative Normal NEGATIVE [facility] Comment on above: Performed By: #### U MICRO, ERUR ####[facility] [address] [place], [place] [address]Dr. Darrick Cao LEUKOCYTES Negative Normal NEGATIVE [facility] Comment on above: Performed By: #### U MICRO, ERUR ####[facility] [address] [place], [place] [address]Dr. Darrick Cao Nitrite Ql (U) Negative Normal NEGATIVE [facility] Comment on above: Performed By: #### U MICRO, ERUR ####[facility] [address] [place], [place] [address]Dr. Darrick Cao pH (U) 6.0 [pH] Normal 5-9 [facility] Comment on above: Performed By: #### U MICRO, ERUR ####[facility] [address] [place], [place] [address]Dr. Adryyakov Cao SPEC GRAVITY 1.020 Normal 1.005-<=1. 025 [facility] Comment on above: Performed By: #### U MICRO, ERUR ####[facility] [address] [place], [place] [address]Dr. Darrick Cao UA PROTEIN Negative Normal NEGATIVE/ TRACE [facility] Comment on above: Performed By: #### U MICRO, ERUR ####[facility] [address] [place], [place] [address]Dr. Darrick Cao UR MICRO IND INDICATED Normal [facility] Comment on above: Performed By: #### U MICRO, ERUR ####[facility] [address] [place], [place] [address]Dr. Darrick Cao Urobilinogen Qn (U) 0.2 {Larissa'U}/dL Normal 0.2 - 1. 0 [facility] Comment on above: Performed By: #### U MICRO, ERUR ####[facility] [address] [place] [address]Dr. Darrick Cao POINT OF CARE GLUCOSEon 04-01 Glucose [Mass/Vol] 118 mg/dL Critically high 74-106 [facility] Comment on above: Performed By: #### P OCGLUC ####[facility] [address] [place] [address]Dr. Darrick Cao PROF 14(COMP METB)on 022 Albumin [Mass/Vol] 2.9 g/dL Critically low 3.4-5.0 [facility] Comment on above: Performed By: #### P OCGLUC #### [facility] [address] [address] [address] Darrick Cao Albumin/Globulin [Mass ratio] 0.8 {ratio} Normal [facility] Comment on above: Performed By: #### P OCGLUC #### [facility] [address] [address] [address] Darrick Cao ALP [Catalytic activity/Vol] 113 U/L Normal 46-116 [facility] Comment on above: Performed By: #### P OCGLUC #### [facility] [address] [address] [address] Darrick Cao ALT [Catalytic activity/Vol] 56 U/L Normal 14-59 [facility] Comment on above: Performed By: #### P OCGLUC #### [facility] [address] [address] [address] Darrick Cao Anion gap [Moles/Vol] 8.8 mmol/L Normal [facility] Comment on above: Performed By: #### P OCGLUC #### [facility] [address] [address] [address] Darrick Cao AST [Catalytic activity/Vol] 30 U/L Normal 15-37 [facility] Comment on above: Performed By: #### P OCGLUC #### [facility] [address] [address] [address] Darrick Cao Bilirubin [Mass/Vol] 0.3 mg/dL Normal 0.2-1.0 [facility] Comment on above: Performed By: #### P OCGLUC #### [facility] [address] [address] [address] Darrick Cao Calcium [Mass/Vol] 8.6 mg/dL Normal 8.5-10.1 [facility] Comment on above: Performed By: #### P OCGLUC #### [facility] [address] [address] [address] Darrick Cao Chloride [Moles/Vol] 105 mmol/L Normal 98-107 [facility] Comment on above: Performed By: #### P OCGLUC #### [facility] [address] [address] [address] Darrick Cao CO2 [Moles/Vol] 30.4 mmol/L Normal 21.0-32.0 [facility] Comment on above: Performed By: #### P OCGLUC #### [facility] [address] [address] [address] Darrick Cao Creatinine [Mass/Vol] 0.82 mg/dL Normal 0.55-1.02 [facility] Comment on above: Performed By: #### P OCGLUC #### [facility] [address] [address] [address] Darrick Cao EGFR-AF ROMANIAN >60 Normal >=60 [facility] Comment on above: Performed By: #### P OCGLUC #### [facility] [address] [address] [address] Darrick Cao EGFR-NON AF ROMANIAN >60 Normal >=60 [facility] Comment on above: Performed By: #### P OCGLUC #### [facility] [address] [address] [address] Darrick Cao Globulin (S) [Mass/Vol] 3.6 g/dL Normal [facility] Comment on above: Performed By: #### P OCGLUC #### [facility] [address] [address] [address] Darrick Cao Glucose [Mass/Vol] 103 mg/dL Normal 74-106 [facility] Comment on above: Performed By: #### P OCGLUC #### [facility] [address] [address] [address] Darrick Cao Potassium [Moles/Vol] 4.2 mmol/L Normal 3.5-5.1 [facility] Comment on above: Performed By: #### P OCGLUC #### [facility] [address] [address] [address] Darrick Cao Protein [Mass/Vol] 6.5 g/dL Normal 6.4-8.2 [facility] Comment on above: Performed By: #### P OCGLUC #### [facility] [address] [address] [address] Darrick Cao Sodium [Moles/Vol] 140 mmol/L Normal 136-145 [facility] Comment on above: Performed By: #### P OCGLUC #### [facility] [address] [address] [address] Darrick Cao Urea nitrogen [Mass/Vol] 11.0 mg/dL Normal 7.0-18.0 [facility] Comment on above: Performed By: #### P OCGLUC #### [facility] [address] [address] [address] Darrick Cao Urea nitrogen/Creatinine [Mass ratio] 13.4 mg/mg Normal [facility] Comment on above: Performed By: #### P OCGLUC #### [facility] [address] [address] [address] Darrick Cao URINE MICROSCOPIC ONLYon BACTERIA NONE SEEN Normal NONE SEEN [facility] Comment on above: Performed By: #### U MICRO, ERUR ####[facility] [address] [id number] Cao Bacteria identified Cx Nom (U) NOT INDICATED Normal [facility] Comment on above: Performed By: #### U MICRO, ERUR ####[facility] [address] [id number]. Darrick Cao CAST NONE SEEN Normal NONE SEEN [facility] Comment on above: Performed By: #### U MICRO, ERUR ####[facility] [address] [address]Dr. Darrick Cao Crystals LM Nom (Urine sed) NONE SEEN Normal NONE SEEN [facility] Comment on above: Performed By: #### U MICRO, ERUR ####[facility] [address] [address]Dr. Darrick Cao Epithelial cells LM Ql (Urine sed) RARE Normal NONE SEEN /RARE [facility] Comment on above: Performed By: #### U MICRO, ERUR ####[facility] [address] [id number]. Darrick Cao MUCOUS NONE SEEN Normal NONE SEEN [facility] Comment on above: Performed By: #### U MICRO, ERUR ####[facility] [address] [address]Dr. Darrick Cao RBC 5-10 Abnormal 0-2 [facility] Comment on above: Performed By: #### U MICRO, ERUR ####[facility] [address] [address]Dr. Darrick Cao WBC 0-2 Abnormal NONE SEEN [facility] Comment on above: Performed By: #### U MICRO, ERUR ####[facility] [address] [address]Dr. Darrick Cao XR CHEST 2 Von 04-25-2022 [...] AMY FOWLER Date: 2022-04-25 20:07 Normal [facility] CBC AUTO DIFFon 04-24-2022 BASO # 0.1 103/ul Normal 0.0-0.1 [facility] Comment on above: Performed By: #### P OCGLUC #### [facility] [address] [address] [address] Darrick Cao Basophils/100 WBC (Bld) 0.8 % Normal 0.2-2.0 [facility] Comment on above: Performed By: #### P OCGLUC #### [facility] [address] [place] [address] Dr. Darrick Cao EO # 0.1 103/ul Normal 0.0-0.7 [facility] Comment on above: Performed By: #### P OCGLUC #### [facility] [address] [place] [address] Dr. Darrick Cao Eosinophils/100 WBC (Bld) 1.9 % Normal 0.9-7.0 [facility] Comment on above: Performed By: #### P OCGLUC #### [facility] [address] [place] [address] Dr. Darrick Cao Erythrocyte distribution width (RBC) [Ratio] 15.6 % Critically high 11.0-15.0 [facility] Comment on above: Performed By: #### P OCGLUC #### [facility] [address] [place] [address] Dr. Darrick Cao Hematocrit (Bld) [Volume fraction] 35.4 % Critically low 36.0-48.0 [facility] Comment on above: Performed By: #### P OCGLUC #### [facility] [address] [place] [address] Dr. Darrick Cao Hemoglobin (Bld) [Mass/Vol] 11.4 g/dL Critically low 12.0-16.0 [facility] Comment on above: Performed By: #### P OCGLUC #### [facility] [address] [place] [address] Dr. Darrick Cao IG # 0.02 10e3/ul Normal 0.00-0.03 [facility] Comment on above: Performed By: #### P OCGLUC #### [facility] [address] [place] [address] Dr. Darrick Cao IG % 0.3 % Normal 0.0-0.5 [facility] Comment on above: Performed By: #### P OCGLUC #### [facility] [address] [address] [address] Darrick Cao LYMPH # 1.9 103/ul Normal 1.2-3.8 [facility] Comment on above: Performed By: #### P OCGLUC #### [facility] [address] [place] [address] Dr. Darrick Cao Lymphocytes/100 WBC (Bld) 30.2 % Normal 20.5-60.0 [facility] Comment on above: Performed By: #### P OCGLUC #### [facility] [address] [place] [address] Dr. Darrick Cao MANUAL DIFF REQ NO Normal [facility] Comment on above: Performed By: #### P OCGLUC #### [facility] [address] [place] [address] Dr. Darrick Cao MCH (RBC) [Entitic mass] 27.9 pg Normal 26.7-34.0 [facility] Comment on above: Performed By: #### P OCGLUC #### [facility] [address] [place] [address] Dr. Darrick Cao MCHC (RBC) [Mass/Vol] 32.2 g/dL Normal 29.9-35.2 [facility] Comment on above: Performed By: #### P OCGLUC #### [facility] [address] [place] [address] Dr. Darrick Cao MCV (RBC) [Entitic vol] 86.6 fL Normal 81.0-99.0 [facility] Comment on above: Performed By: #### P OCGLUC #### [facility] [address] [place] [address] Dr. Darrick Cao MONO # 0.6 103/ul Normal 0.3-0.8 [facility] Comment on above: Performed By: #### P OCGLUC #### [facility] [address] [place] [address] Dr. Darrick Cao Monocytes/100 WBC (Bld) 9.0 % Normal 1.7-12.0 [facility] Comment on above: Performed By: #### P OCGLUC #### [facility] [address] [place], [place] [id number] Dr. Darrick Cao NEUT # 3.7 103/ul Normal 1.4-6.5 [facility] Comment on above: Performed By: #### P OCGLUC #### [facility] [address] [place] [address] Dr. Darrick Cao Neutrophils/100 WBC (Bld) 57.8 % Normal 43.0-75.0 [facility] Comment on above: Performed By: #### P OCGLUC #### [facility] [address] [place] [address] Dr. Darrick Cao Platelet mean volume (Bld) [Entitic vol] 9.5 fL Normal 9.5-13.5 [facility] Comment on above: Performed By: #### P OCGLUC #### [facility] [address] [place] [address] Dr. Darrick Cao PLT 256 103/ul Normal 150-450 [facility] Comment on above: Performed By: #### P OCGLUC #### [facility] [address] [place] [address] Dr. Darrick Cao RBC 4.09 106/ul Critically low 4.20-5.40 [facility] Comment on above: Performed By: #### P OCGLUC #### [facility] [address] [place] [address] Dr. Darrick Cao WBC 6.3 103/ul Normal 4.0-11.0 [facility] Comment on above: Performed By: #### P OCGLUC #### [facility] [address] [place] [address] Dr. Darrick Cao GRAM STAINon 04-24-2022 COMMENTS NO ORGANISMS OBSERVED Normal [facility] Comment on above: Performed By: #### C XWND #### [facility] [address] [place] [address] Dr. Darrick Cao DIPHTHEROIDS Normal [facility] Comment on above: Performed By: #### C XWND #### [facility] [address] [place] [address] Dr. Darrick Cao EPITHELIALS Normal [facility] Comment on above: Performed By: #### C XWND #### [facility] [address] [address] [address] Darrick Cao FUNGAL ELEMENTS Normal [facility] Comment on above: Performed By: #### C XWND #### [facility] [address] [address] [address] Darrick Cao GRAM NEG BACILLI Normal [facility] Comment on above: Performed By: #### C XWND #### [facility] [address] [address] [address] Darrick SOLOMON NEG DIPPLOCOCCI Normal [facility] Comment on above: Performed By: #### C XWND #### [facility] [address] [address] [address] Darrick Cao GRAM POS BACILLI Normal [facility] Comment on above: Performed By: #### C XWND #### [facility] [address] [address] [address] Darrick Cao GRAM POSITIVE COCCI Normal [facility] Comment on above: Performed By: #### C XWND #### [facility] [address] [address] [address] Darrick Cao GRAM STAIN SOURCE Post irrigation left foot Normal [facility] Comment on above: Performed By: #### C XWND #### [facility] [address] [address] [address] Darrick Cao GS_DIPTH Normal [facility] Comment on above: Performed By: #### C XWND #### [facility] [address] [address] [address] Darrick Cao WBC NONE SEEN Normal [facility] Comment on above: Performed By: #### C XWND #### [facility] [address] [address] [address] Darrick Cao POINT OF CARE GLUCOSEon 2 Glucose [Mass/Vol] 132 mg/dL Critically high 74-106 [facility] Comment on above: Performed By: #### P OCGLUC #### [facility] [address] [address] [address] Darrick Cao Glucose [Mass/Vol] 105 mg/dL Normal 74-106 [facility] Comment on above: Performed By: #### P OCGLUC ####[facility] [address] [address]. Darrick Cao PROF 14(COMP METB)on 04-24- 022 Albumin [Mass/Vol] 2.9 g/dL Critically low 3.4-5.0 [facility] Comment on above: Performed By: #### P OCGLUC #### [facility] [address] [address] [address] Darrick Cao Albumin/Globulin [Mass ratio] 0.8 {ratio} Normal [facility] Comment on above: Performed By: #### P OCGLUC #### [facility] [address] [address] [address] Darrick Cao ALP [Catalytic activity/Vol] 122 U/L Critically high 46-116 [facility] Comment on above: Performed By: #### P OCGLUC #### [facility] [address] [address] [address] Darrick Cao ALT [Catalytic activity/Vol] 65 U/L Critically high 14-59 [facility] Comment on above: Performed By: #### P OCGLUC #### [facility] [address] [address] [address] Darrick Cao Anion gap [Moles/Vol] 12.2 mmol/L Normal [facility] Comment on above: Performed By: #### P OCGLUC #### [facility] [address] [address] [address] Darrick Cao AST [Catalytic activity/Vol] 28 U/L Normal 15-37 [facility] Comment on above: Performed By: #### P OCGLUC #### [facility] [address] [address] [address] Darrick Cao Bilirubin [Mass/Vol] 0.3 mg/dL Normal 0.2-1.0 [facility] Comment on above: Performed By: #### P OCGLUC #### [facility] [address] [address] [address] Darrick Cao Calcium [Mass/Vol] 8.5 mg/dL Normal 8.5-10.1 [facility] Comment on above: Performed By: #### P OCGLUC #### [facility] [address] [address] [address] Darrick Cao Chloride [Moles/Vol] 107 mmol/L Normal 98-107 [facility] Comment on above: Performed By: #### P OCGLUC #### [facility] [address] [address] [address] Darrick Cao CO2 [Moles/Vol] 25.9 mmol/L Normal 21.0-32.0 [facility] Comment on above: Performed By: #### P OCGLUC #### [facility] [address] [place] [address] Dr. Darrick Cao Creatinine [Mass/Vol] 0.87 mg/dL Normal 0.55-1.02 [facility] Comment on above: Performed By: #### P OCGLUC #### [facility] [address] [place] [address] Dr. Darrick Cao EGFR-AF ROMANIAN >60 Normal >=60 [facility] Comment on above: Performed By: #### P OCGLUC #### [facility] [address] [address] [address] Darrick Cao EGFR-NON AF ROMANIAN >60 Normal >=60 [facility] Comment on above: Performed By: #### P OCGLUC #### [facility] [address] [address] [address] Darrick Cao Globulin (S) [Mass/Vol] 3.8 g/dL Normal [facility] Comment on above: Performed By: #### P OCGLUC #### [facility] [address] [address] [address] Darrick Cao Glucose [Mass/Vol] 107 mg/dL Critically high 74-106 [facility] Comment on above: Performed By: #### P OCGLUC #### [facility] [address] [address] [address] Darrick Cao Potassium [Moles/Vol] 4.1 mmol/L Normal 3.5-5.1 [facility] Comment on above: Performed By: #### P OCGLUC #### [facility] [address] [place] [address] Dr. Darrick Cao Protein [Mass/Vol] 6.7 g/dL Normal 6.4-8.2 [facility] Comment on above: Performed By: #### P OCGLUC #### [facility] [address] [place] [address] Dr. Darrick Cao Sodium [Moles/Vol] 141 mmol/L Normal 136-145 [facility] Comment on above: Performed By: #### P OCGLUC #### [facility] [address] [place] [address] Dr. Darrick Cao Urea nitrogen [Mass/Vol] 10.0 mg/dL Normal 7.0-18.0 [facility] Comment on above: Performed By: #### P OCGLUC #### [facility] [address] [place] [address] Dr. Darrick Cao Urea nitrogen/Creatinine [Mass ratio] 11.5 mg/mg Normal [facility] Comment on above: Performed By: #### P OCGLUC #### [facility] [address] [place] [address] Dr. Darrick Cao VANCOMYCIN TROUGHon 04-24-20 VANCOMYCIN TROUGH 9.6 ug/ml Normal 5.0-20.0 [facility] Comment on above: Performed By: #### V ANCT #### [facility] [address] [place] [address] Dr. Darrick Cao CBC AUTO DIFFon 04-23-2022 BASO # 0.1 103/ul Normal 0.0-0.1 [facility] Comment on above: Performed By: #### C XWND #### [facility] [address] [place] [address] Dr. Darrick Cao Basophils/100 WBC (Bld) 0.6 % Normal 0.2-2.0 [facility] Comment on above: Performed By: #### C XWND #### [facility] [address] [place] [address] Dr. Darrick Cao EO # 0.1 103/ul Normal 0.0-0.7 [facility] Comment on above: Performed By: #### C XWND #### [facility] [address] [place] [address] Dr. Darrick Cao Eosinophils/100 WBC (Bld) 0.6 % Critically low 0.9-7.0 [facility] Comment on above: Performed By: #### C XWND #### [facility] [address] [place] [address] Dr. Darrick Cao Erythrocyte distribution width (RBC) [Ratio] 15.8 % Critically high 11.0-15.0 [facility] Comment on above: Performed By: #### C XWND #### [facility] [address] [place] [address] Dr. Darrick Cao Hematocrit (Bld) [Volume fraction] 34.0 % Critically low 36.0-48.0 [facility] Comment on above: Performed By: #### C XWND #### [facility] [address] [place] [address] Dr. Darrick Cao Hemoglobin (Bld) [Mass/Vol] 11.0 g/dL Critically low 12.0-16.0 [facility] Comment on above: Performed By: #### C XWND #### [facility] [address] [place] [address] Dr. Darrick Cao IG # 0.03 10e3/ul Normal 0.00-0.03 [facility] Comment on above: Performed By: #### C XWND #### [facility] [address] [place] [address] Dr. Darrick Cao IG % 0.4 % Normal 0.0-0.5 [facility] Comment on above: Performed By: #### C XWND #### [facility] [address] [place] [address] Dr. Darrick Cao LYMPH # 1.6 103/ul Normal 1.2-3.8 [facility] Comment on above: Performed By: #### C XWND #### [facility] [address] [place] [address] Dr. Darrick Cao Lymphocytes/100 WBC (Bld) 19.6 % Critically low 20.5-60.0 [facility] Comment on above: Performed By: #### C XWND #### [facility] [address] [place] [address] Dr. Darrick Cao MANUAL DIFF REQ NO Normal [facility] Comment on above: Performed By: #### C XWND #### [facility] [address] [place] [address] Dr. Darrick Cao MCH (RBC) [Entitic mass] 28.1 pg Normal 26.7-34.0 [facility] Comment on above: Performed By: #### C XWND #### [facility] [address] [place] [address] Dr. Darrick Cao MCHC (RBC) [Mass/Vol] 32.4 g/dL Normal 29.9-35.2 [facility] Comment on above: Performed By: #### C XWND #### [facility] [address] [place] [address] Dr. Darrick Cao MCV (RBC) [Entitic vol] 87.0 fL Normal 81.0-99.0 [facility] Comment on above: Performed By: #### C XWND #### [facility] [address] [place] [address] Dr. Darrick Cao MONO # 0.8 103/ul Normal 0.3-0.8 [facility] Comment on above: Performed By: #### C XWND #### [facility] [address] [place] [address] Dr. Darrick Cao Monocytes/100 WBC (Bld) 10.3 % Normal 1.7-12.0 [facility] Comment on above: Performed By: #### C XWND #### [facility] [address] [place] [address] Dr. Darrick Cao NEUT # 5.4 103/ul Normal 1.4-6.5 [facility] Comment on above: Performed By: #### C XWND #### [facility] [address] [address] [address] Darrick Cao Neutrophils/100 WBC (Bld) 68.5 % Normal 43.0-75.0 [facility] Comment on above: Performed By: #### C XWND #### [facility] [address] [address] [address] Darrick Cao Platelet mean volume (Bld) [Entitic vol] 9.9 fL Normal 9.5-13.5 [facility] Comment on above: Performed By: #### C XWND #### [facility] [address] [address] [address] Darrick Cao PLT 276 103/ul Normal 150-450 [facility] Comment on above: Performed By: #### C XWND #### [facility] [address] [address] [address] Darrick Cao RBC 3.91 106/ul Critically low 4.20-5.40 [facility] Comment on above: Performed By: #### C XWND #### [facility] [address] [address] [address] Darrick Cao WBC 7.9 103/ul Normal 4.0-11.0 [facility] Comment on above: Performed By: #### C XWND #### [facility] [address] [address] [address] Darrick Cao POINT OF CARE GLUCOSEon 04-01 Glucose [Mass/Vol] 138 mg/dL Critically high 74-106 [facility] Comment on above: Performed By: #### P OCGLUC ####[facility] [address] [address]Dr. Darrick Cao Glucose [Mass/Vol] 151 mg/dL Critically high 74-106 [facility] Comment on above: Performed By: #### P OCGLUC #### [facility] [address] [address] [address] Darrick Cao Glucose [Mass/Vol] 141 mg/dL Critically high 74-106 [facility] Comment on above: Performed By: #### P OCGLUC ####[facility] [address] [place], [place] [address]RnDr. Darrick Cao PROF 14(COMP METB)on 022 Albumin [Mass/Vol] 3.0 g/dL Critically low 3.4-5.0 [facility] [place] [facility] Comment on above: Performed By: #### C XWND #### [facility] [address] [address] [address] Darrick Cao Albumin/Globulin [Mass ratio] 0.9 {ratio} Normal [facility] Comment on above: Performed By: #### C XWND #### [facility] [address] [address] [address] Darrick Cao ALP [Catalytic activity/Vol] 128 U/L Critically high 46-116 [facility] Comment on above: Performed By: #### C XWND #### [facility] [address] [address] [address] Darrick Cao ALT [Catalytic activity/Vol] 71 U/L Critically high 14-59 [facility] Comment on above: Performed By: #### C XWND #### [facility] [address] [address] [address] Darrick Cao Anion gap [Moles/Vol] 13.1 mmol/L Normal [facility] Comment on above: Performed By: #### C XWND #### [facility] [address] [address] [address] Darrick Cao AST [Catalytic activity/Vol] 50 U/L Critically high 15-37 [facility] Comment on above: Performed By: #### C XWND #### [facility] [address] [address] [address] Darrick Cao Bilirubin [Mass/Vol] 0.3 mg/dL Normal 0.2-1.0 [facility] Comment on above: Performed By: #### C XWND #### [facility] [address] [address] [address] Darrick Cao Calcium [Mass/Vol] 8.2 mg/dL Critically low 8.5-10.1 [facility] [place] [facility] Comment on above: Performed By: #### C XWND #### [facility] [address] [address] [address] Darrick Cao Chloride [Moles/Vol] 110 mmol/L Critically high 98-107 [facility] Comment on above: Performed By: #### C XWND #### [facility] [address] [address] [address] Darrick Cao CO2 [Moles/Vol] 23.4 mmol/L Normal 21.0-32.0 [facility] Comment on above: Performed By: #### C XWND #### [facility] [address] [address] [address] Darrick Cao Creatinine [Mass/Vol] 0.96 mg/dL Normal 0.55-1.02 [facility] Comment on above: Performed By: #### C XWND #### [facility] [address] [address] [address] Darrick Cao EGFR-AF ROMANIAN >60 Normal >=60 [facility] Comment on above: Performed By: #### C XWND #### [facility] [address] [address] [address] Darrick Cao EGFR-NON AF ROMANIAN 59 mL/min/1.73m2 Critically low >=60 [facility] Comment on above: Performed By: #### C XWND #### [facility] [address] [address] [address] Darrick Cao Globulin (S) [Mass/Vol] 3.3 g/dL Normal [facility] Comment on above: Performed By: #### C XWND #### [facility] [address] [address] [address] Darrick Cao Glucose [Mass/Vol] 116 mg/dL Critically high 74-106 [facility] Comment on above: Performed By: #### C XWND #### [facility] [address] [address] [address] Darrick Cao Potassium [Moles/Vol] 4.5 mmol/L Normal 3.5-5.1 [facility] Comment on above: Performed By: #### C XWND #### [facility] [address] [place] [address] Dr. Darrick Cao Protein [Mass/Vol] 6.3 g/dL Critically low 6.4-8.2 Th e [facility] Comment on above: Performed By: #### C XWND #### [facility] [address] [place] [address] Dr. Darrick Cao Sodium [Moles/Vol] 142 mmol/L Normal 136-145 [facility] Comment on above: Performed By: #### C XWND #### [facility] [address] [place] [address] Dr. Darrick Cao Urea nitrogen [Mass/Vol] 14.0 mg/dL Normal 7.0-18.0 [facility] Comment on above: Performed By: #### C XWND #### [facility] [address] [place] [address] Dr. Darrick Cao Urea nitrogen/Creatinine [Mass ratio] 14.6 mg/mg Normal [facility] Comment on above: Performed By: #### C XWND #### [facility] [address] [place] [address] Dr. Darrick Cao CBC AUTO DIFFon 04-22-2022 BASO # 0.1 103/ul Normal 0.0-0.1 [facility] Comment on above: Performed By: #### C BC #### [facility] [address] [place] [address] Dr. Darrick Cao Basophils/100 WBC (Bld) 0.7 % Normal 0.2-2.0 [facility] Comment on above: Performed By: #### C BC #### [facility] [address] [place] [address] Dr. Darrick Cao EO # 0.1 103/ul Normal 0.0-0.7 [facility] Comment on above: Performed By: #### C BC #### [facility] [address] [place] [address] Dr. Darrick Cao Eosinophils/100 WBC (Bld) 0.5 % Critically low 0.9-7.0 [facility] Comment on above: Performed By: #### C BC #### [facility] [address] [place] [address] Dr. Darrick Cao Erythrocyte distribution width (RBC) [Ratio] 15.8 % Critically high 11.0-15.0 [facility] Comment on above: Performed By: #### C BC #### [facility] [address] [place] [address] Dr. Darrick Cao Hematocrit (Bld) [Volume fraction] 39.8 % Normal 36.0-48.0 [facility] Comment on above: Performed By: #### C BC #### [facility] [address] [place] [address] Dr. Darrick Cao Hemoglobin (Bld) [Mass/Vol] 12.9 g/dL Normal 12.0-16.0 [facility] Comment on above: Performed By: #### C BC #### [facility] [address] [place] [address] Dr. Darrick Cao IG # 0.03 10e3/ul Normal 0.00-0.03 [facility] Comment on above: Performed By: #### C BC #### [facility] [address] [place] [address] Dr. Darrick Cao IG % 0.3 % Normal 0.0-0.5 [facility] Comment on above: Performed By: #### C BC #### [facility] [address] [place] [address] Dr. Darrick Cao LYMPH # 1.6 103/ul Normal 1.2-3.8 [facility] Comment on above: Performed By: #### C BC #### [facility] [address] [place] [address] Dr. Darrick Cao Lymphocytes/100 WBC (Bld) 16.0 % Critically low 20.5-60.0 [facility] Comment on above: Performed By: #### C BC #### [facility] [address] [place] [address] Dr. Darrick Cao MANUAL DIFF REQ NO Normal [facility] Comment on above: Performed By: #### C BC #### [facility] [address] [address] [address] Darrick Cao MCH (RBC) [Entitic mass] 28.2 pg Normal 26.7-34.0 [facility] Comment on above: Performed By: #### C BC #### [facility] [address] [place] [address] Dr. Darrick Cao MCHC (RBC) [Mass/Vol] 32.4 g/dL Normal 29.9-35.2 [facility] Comment on above: Performed By: #### C BC #### [facility] [address] [place] [address] Dr. Darrick Cao MCV (RBC) [Entitic vol] 86.9 fL Normal 81.0-99.0 [facility] Comment on above: Performed By: #### C BC #### [facility] [address] [place] [address] Dr. Darrick Cao MONO # 0.9 103/ul Critically high 0.3-0.8 [facility] Comment on above: Performed By: #### C BC #### [facility] [address] [place] [address] Dr. Darrick Cao Monocytes/100 WBC (Bld) 8.7 % Normal 1.7-12.0 [facility] Comment on above: Performed By: #### C BC #### [facility] [address] [place] [address] Dr. Darrick Cao NEUT # 7.5 103/ul Critically high 1.4-6.5 [facility] Comment on above: Performed By: #### C BC #### [facility] [address] [place] [address] Dr. Darrick Cao Neutrophils/100 WBC (Bld) 73.8 % Normal 43.0-75.0 [facility] Comment on above: Performed By: #### C BC #### [facility] [address] [place] [address] Dr. Darrick Cao Platelet mean volume (Bld) [Entitic vol] 9.3 fL Critically low 9.5-13.5 [facility] Comment on above: Performed By: #### C BC #### [facility] [address] [address] [address] Darrick Cao PLT 345 103/ul Normal 150-450 [facility] Comment on above: Performed By: #### C BC #### [facility] [address] [address] [address] Darrick Cao RBC 4.58 106/ul Normal 4.20-5.40 [facility] Comment on above: Performed By: #### C BC #### [facility] [address] [address] [address] Darrick Cao WBC 10.1 103/ul Normal 4.0-11.0 [facility] Comment on above: Performed By: #### C BC #### [facility] [address] [place] [address] Dr. Darrick Cao CRPon 04-22-2022 CRP 5.2 mg/dL Critically high <=1.0 [facility] Comment on above: Performed By: #### B MP, CRP ####[facility] [address] [id number]. Darrick Cao CULTURE BLOODon 04-22-2022 Microscopic examination of blood, culture Culture Observations: NO GROWTH AT 5 DAYS. Normal [facility] Comment on above: Performed By: #### B LDCX2 #### [facility] [address] [address] [address] Darrick Cao Microscopic examination of blood, culture Culture Observations: NO GROWTH AT 5 DAYS. Normal [facility] Comment on above: Performed By: #### B LDCX1 #### [facility] [address] [address] [address] Darrick Cao [facility]on 04-01 SARS-CoV-2 (COVID-19) RNA ALEKSANDR+probe Ql (Unsp spec) Not detected Normal NOT DETECTED [facility] Comment on above: Result Comment: When diagnostic [...] for this test is supported by the [place] of Health and Human Service's declaration that [...] used). Performed By: #### P OCGLUC #### [facility] [address] [place] [address] Dr. Darrick Cao LACTATE/LACTIC ACIDon 2021 Lactate [Moles/Vol] 1.3 mmol/L Normal 0.4-1.9 [facility] Comment on above: Performed By: #### P OCGLUC #### [facility] [address] [place] [address] Dr. Darrick Cao POINT OF CARE GLUCOSEon 04-01 Glucose [Mass/Vol] 96 mg/dL Normal 74-106 [facility] Comment on above: Performed By: #### P OCGLUC #### [facility] [address] [place] [address] Dr. Darrick Cao PROF CHEM 8 (BAS METB)on Anion gap [Moles/Vol] 12.3 mmol/L Normal [facility] Comment on above: Performed By: #### B MP, CRP ####[facility] [address] [address]Dr. Darrick Cao Calcium [Mass/Vol] 9.2 mg/dL Normal 8.5-10.1 [facility] Comment on above: Performed By: #### B MP, CRP ####[facility] [address] [address]Dr. Darrick Cao Chloride [Moles/Vol] 104 mmol/L Normal 98-107 [facility] Comment on above: Performed By: #### B MP, CRP ####[facility] [address] [address]Dr. Darrick Cao CO2 [Moles/Vol] 26.4 mmol/L Normal 21.0-32.0 [facility] Comment on above: Performed By: #### B MP, CRP ####[facility] [address] [place], [place] [address]Dr. Darrick Cao Creatinine [Mass/Vol] 1.19 mg/dL Critically high 0.55-1.02 [facility] Comment on above: Performed By: #### B MP, CRP ####[facility] [address] [place], [place] [address]Dr. Darrick Cao EGFR-AF ROMANIAN 56 mL/min/1.73m2 Critically low >=60 [facility] Comment on above: Performed By: #### B MP, CRP ####[facility] [address] [place], [place] [address]Dr. Darrick Cao EGFR-NON AF ROMANIAN 46 mL/min/1.73m2 Critically low >=60 [facility] Comment on above: Performed By: #### B MP, CRP ####[facility] [address] [place], [place] [address]Dr. Darrick Cao Glucose [Mass/Vol] 124 mg/dL Critically high 74-106 [facility] Comment on above: Performed By: #### B MP, CRP ####[facility] [address] [place], [place] [address]Dr. Darrick Cao Potassium [Moles/Vol] 4.7 mmol/L Normal 3.5-5.1 [facility] Comment on above: Performed By: #### B MP, CRP ####[facility] [address] [place], [place] [address]Dr. Darrick Cao Sodium [Moles/Vol] 138 mmol/L Normal 136-145 [facility] Comment on above: Performed By: #### B MP, CRP ####[facility] [address] [place], [place] [address]Dr. Darrick Cao Urea nitrogen [Mass/Vol] 21.0 mg/dL Critically high 7.0-18.0 [facility] Comment on above: Performed By: #### B MP, CRP ####[facility] [address] [place], [place] [address]Po. Darrick Cao Urea nitrogen/Creatinine [Mass ratio] 17.6 mg/mg Normal [facility] Comment on above: Performed By: #### B MP, CRP ####[facility] [address] [place], [place] [address]Oc. Darrick Cao SED [facility] 2021 SED RATE 64 mm/hr Critically high <=30 [facility] Comment on above: Performed By: #### P OCGLUC #### [facility] [address] [address] [address] ANKLE LT WO [...] by: SHAWNEE KELLY Date: 2022-03-11 10:18 Normal [facility] COVID Quick Testingon 2020 Result Negative [employer] Other Operative Reporton 1 Operative Report MR#: [id number] S [facility] Pt. Name: Nicol Knowles Room #: 0C Discharge Date: Birthdate: 1960 OPERATIVE REPORT DATE OF SURGERY: 12/16/2020 SURGEON: David Lr M.D. PREOPERATIVE DIAGNOSIS: Trigger digits, right long finger and thumb. POSTOPERATIVE DIAGNOSIS: Trigger digits, right long finger and thumb. PROCEDURE: A1 leigha release, right long finger and thumb. MIRROR PAINTER: Hay Mast M.D. ANESTHESIA: MAC. INDICATION FOR [...] A/David Lr M.D. Date Trans: 12/16/2020 09:13 A/rbaxton [id number] cc: Waqas Pierce M.D. [address] [place] [id number] Normal [facility] POC GLUCOSE LABon 12-16-2020 Glucose [Mass/Vol] 103 mg/dL High 70-100 [facility] Comment on above: Performed By: #### [id number] #### [address] [place] [address], [facility] Vital Signs Date Time Vital Sign Value Performing Clinician Facility 10-15-2023 10:00-0500 Body height 170.18 cm Grecia Carrera Other [facility] Other 10-15-2023 10:00-0500 Body mass index (BMI) [Ratio] 40.08 kg/m2 Grecia Carrera Other [facility] Other 10-15-2023 10:00-0500 Body weight 116.08 kg Grecia Fitt Other [facility] Other 09-18-2023 11:00-0500 Body height 170.18 cm Rolando Castellanos Other [employer] Other 09-18-2023 11:00-0500 Body mass index (BMI) [Ratio] 40.45 kg/m2 Rolando Castellanos Other [facility] Other 09-18-2023 11:00-0500 Body weight 117.16 kg Rolando Castellanos Other [facility] Other 09-18-2023 11:00-0500 Diastolic blood pressure 80 mm[Hg] Rolando Castellanos Other [facility] Other 09-18-2023 11:00-0500 Respiratory rate 18 /min Rolando Castellanos Other [facility] Other 09-18-2023 11:00-0500 SaO2% (BldA) [Mass fraction] 98 % Rolando Castellanos Other [facility] Other 09-18-2023 11:00-0500 Systolic blood pressure 115 mm[Hg] Rolando Castellanos Other [facility] Other 09-17-2023 10:45-0500 Body height 170.18 cm Grecia Henryroberto Other [employer] Other 09-17-2023 10:45-0500 Body mass index (BMI) [Ratio] 40.65 kg/m2 Grecia Henryt Other [facility] Other 09-17-2023 10:45-0500 Body weight 117.75 kg Grecia Fitt Other [facility] Other 09-03-2023 12:45-0500 Diastolic blood pressure 60 mm[Hg] MD Waqas Pierce Work Phone: [facility] 09-03-2023 12:45-0500 Heart rate 70 /min MD Waqas Pierce Work Phone: [facility] 09-03-2023 12:45-0500 Inhaled oxygen flow rate 1 L/min MD Waqas Pierce Work Phone: [facility] 09-03-2023 12:45-0500 Respiratory rate 16 /min MD Waqas Pierce Work Phone: [facility] 09-03-2023 12:45-0500 SaO2% (BldA) [Mass fraction] 97 % MD Waqas Pierce Work Phone: [facility] 09-03-2023 12:45-0500 Systolic blood pressure 132 mm[Hg] MD Waqas Pierce Work Phone: [facility] 09-03-2023 10:21-0500 Body temperature 98.4 [degF] MD Waqas Pierce Work Phone: [facility] 09-03-2023 07:14-0500 Body height 172.72 cm MD Waqas Pierce Work Phone: [facility] 09-03-2023 07:14-0500 Body mass index (BMI) [Ratio] 39.5 kg/m2 MD Waqas Pierce Work Phone: [facility] 09-03-2023 07:14-0500 Body weight 118 kg MD Waqas Pierce Work Phone: [facility] 08-21-2023 14:30-0500 Body height 170.18 cm Waqas Pierce Other [employer] Other 08-21-2023 14:30-0500 Body mass index (BMI) [Ratio] 39.46 kg/m2 Waqas Pierce Other [facility] Other 08-21-2023 14:30-0500 Body weight 114.31 kg Waqas Pierce Other [employer] Other 08-21-2023 14:30-0500 Diastolic blood pressure 84 mm[Hg] Waqas Pierce Other [employer] Other 08-21-2023 14:30-0500 Systolic blood pressure 138 mm[Hg] Waqas Pierce Other [employer] Other 08-13-2023 10:45-0500 Body height 170.18 cm Grecia Fitt Other [employer] Other 08-13-2023 10:45-0500 Body mass index (BMI) [Ratio] 41.22 kg/m2 Grecia Fitt Other [employer] Other 08-13-2023 10:45-0500 Body weight 119.39 kg Grecia Fitt Other [employer] Other 07-26-2023 11:30-0400 Body height 170.18 cm Rolando Castellanos Other [employer] Other 07-26-2023 11:30-0400 Body mass index (BMI) [Ratio] 41.86 kg/m2 Rolando Castellanos Other [employer] Other 07-26-2023 11:30-0400 Body weight 121.25 kg Rolando Castellanos Other [employer] Other 07-26-2023 11:30-0400 Diastolic blood pressure 77 mm[Hg] Rolando Castellanos Other [employer] Other 07-26-2023 11:30-0400 Respiratory rate 18 /min Rolando Castellanos Other [employer] Other 07-26-2023 11:30-0400 SaO2% (BldA) [Mass fraction] 98 % Rolando Castellanos Other [employer] Other 07-26-2023 11:30-0400 Systolic blood pressure 121 mm[Hg] Rolando Castellanos Other [employer] Other 07-23-2023 10:45-0400 Body height 170.18 cm Grecia Fitt Other [employer] Other 07-23-2023 10:45-0400 Body mass index (BMI) [Ratio] 41.78 kg/m2 Grecia Fitt Other [employer] Other 07-23-2023 10:45-0400 Body weight 121.02 kg Grecia Fitt Other [employer] Other 06-27-2023 15:15-0400 Body height 170.18 cm David Mcfarland II Other [employer] Other 06-27-2023 15:15-0400 Body mass index (BMI) [Ratio] 41.97 kg/m2 David Rdzle II Other [employer] Other 06-27-2023 15:15-0400 Body weight 121.56 kg David Mcfarland II Other [employer] Other 06-18-2023 11:30-0400 Body height 170.18 cm Grecia Fitt Other [employer] Other 06-18-2023 11:30-0400 Body mass index (BMI) [Ratio] 42.52 kg/m2 Grecia Fitt Other [employer] Other 06-18-2023 11:30-0400 Body weight 123.15 kg Grecia Fitt Other [employer] Other 06-14-2023 10:00-0400 Body height 170.18 cm Rolando Castellanos Other [employer] Other 06-14-2023 10:00-0400 Body mass index (BMI) [Ratio] 42.89 kg/m2 Rolando Castellanos Other [employer] Other 06-14-2023 10:00-0400 Body weight 124.24 kg Rolando Castellanos Other [employer] Other 06-14-2023 10:00-0400 Diastolic blood pressure 87 mm[Hg] Rolando Castellanos Other [employer] Other 06-14-2023 10:00-0400 Respiratory rate 18 /min Rolando Castellanos Other [employer] Other 06-14-2023 10:00-0400 SaO2% (BldA) [Mass fraction] 100 % Rolando Castellanos Other [employer] Other 06-14-2023 10:00-0400 Systolic blood pressure 124 mm[Hg] Rolando Castellanos Other [employer] Other 06-11-2023 12:45-0400 Body height 170.18 cm Waqas Pierce Other [employer] Other 06-11-2023 12:45-0400 Body mass index (BMI) [Ratio] 42.41 kg/m2 Waqas Pierce Other [employer] Other 06-11-2023 12:45-0400 Body weight 122.83 kg Waqas Pierce Other [employer] Other 06-11-2023 12:45-0400 Diastolic blood pressure 76 mm[Hg] Waqas Pierce Other [employer] Other 06-11-2023 12:45-0400 Respiratory rate 12 /min Waqas Pierce Other [employer] Other 06-11-2023 12:45-0400 Systolic blood pressure 124 mm[Hg] Waqas Pierce Other [employer] Other 05-14-2023 10:00-0400 Body height 170.18 cm Grecia Fitt Other [employer] Other 05-14-2023 10:00-0400 Body mass index (BMI) [Ratio] 43.05 kg/m2 Grecia Fitt Other [employer] Other 05-14-2023 10:00-0400 Body weight 124.69 kg Grecia Fitt Other [employer] Other 04-16-2023 10:00-0400 Body height 170.18 cm Grecia Fitt Other [employer] Other 04-16-2023 10:00-0400 Body mass index (BMI) [Ratio] 43.94 kg/m2 Gercia Fitt Other [employer] Other 04-16-2023 10:00-0400 Body weight 127.28 kg Grecia Fitt Other [employer] Other 01-11-2023 11:00-0400 Body height 170.18 cm Grecia Fitt Other [employer] Other 01-11-2023 11:00-0400 Body mass index (BMI) [Ratio] 47.37 kg/m2 Grecia Fitt Other [employer] Other 01-11-2023 11:00-0400 Body weight 137.21 kg Grecia Fitt Other [employer] Other 11-16-2022 11:45-0500 Body height 170.18 cm Rolando Castellanos Other [employer] Other 11-16-2022 11:45-0500 Body mass index (BMI) [Ratio] 47 kg/m2 Rolando Castellanos Other [employer] Other 11-16-2022 11:45-0500 Body weight 136.13 kg Rolando Castellanos Other [employer] Other 11-16-2022 11:45-0500 Diastolic blood pressure 85 mm[Hg] Rolando Castellanos Other [employer] Other 11-16-2022 11:45-0500 Respiratory rate 18 /min Rolando Reyesdiff Other [employer] Other 11-16-2022 11:45-0500 SaO2% (BldA) [Mass fraction] 97 % Rolando Castellanos Other [employer] Other 11-16-2022 11:45-0500 Systolic blood pressure 114 mm[Hg] Rolando Reyesdiff Other [employer] Other 11-14-2022 09:15-0500 Body height 170.18 cm Grecia Carrera Other [employer] Other 11-08-2022 14:57-0500 Blood Pressure Location [employer] General Surgery [employer] 11-08-2022 14:57-0500 Diastolic blood pressure 74 mm[Hg] Efrain NILL General Surgery [employer] 11-08-2022 14:57-0500 Heart rate 80 /min Efrain NILL General Surgery [employer] 11-08-2022 14:57-0500 Respiratory rate 16 /min Efrain NILL General Surgery [employer] 11-08-2022 14:57-0500 Systolic blood pressure 118 mm[Hg] Efrain NILL General Surgery [employer] 10-23-2022 10:30-0500 Body height 170.18 cm Waqas Pierce Other [employer] Other 10-23-2022 10:30-0500 Body mass index (BMI) [Ratio] 46.04 kg/m2 Waqas Pierce Other [employer] Other 10-23-2022 10:30-0500 Body weight 133.36 kg Waqas Pierce Other [employer] Other 10-23-2022 10:30-0500 Diastolic blood pressure 88 mm[Hg] Waqas Kari Other [employer] Other 10-23-2022 10:30-0500 Systolic blood pressure 148 mm[Hg] Waqas Kari Other [employer] Other 10-13-2022 10:15-0500 Body height 170.18 cm Rachel Missler Other [employer] Other 10-13-2022 10:15-0500 Body mass index (BMI) [Ratio] 45.89 kg/m2 Rachel Missler Other [employer] Other 10-13-2022 10:15-0500 Body weight 132.9 kg Rachel Missler Other [employer] Other 10-13-2022 10:15-0500 Diastolic blood pressure 89 mm[Hg] Rachel Missler Other [employer] Other 10-13-2022 10:15-0500 Respiratory rate 18 /min Rachel Missler Other [employer] Other 10-13-2022 10:15-0500 SaO2% (BldA) [Mass fraction] 96 % Rachel Missler Other [employer] Other 10-13-2022 10:15-0500 Systolic blood pressure 138 mm[Hg] Rachel Missler Other [employer] Other 09-06-2022 16:00-0500 Body height 170.18 cm David Mcfarland II Other [employer] Other 09-06-2022 16:00-0500 Body mass index (BMI) [Ratio] 45.57 kg/m2 David Mcfarland II Other [employer] Other 09-06-2022 16:00-0500 Body weight 132 kg David Mcfarland II Other [employer] Other 07-25-2021 18:45-0400 Body height 170.18 cm Mallory Wilfrid Other [employer] Other 07-25-2021 18:45-0400 Body mass index (BMI) [Ratio] 42.91 kg/m2 Mallory Wilfrid Other [employer] Other 07-25-2021 18:45-0400 Body temperature 98.6 [degF] Mallory Rangelault Other [employer] Other 07-25-2021 18:45-0400 Body weight 124.29 kg Mallory Rangelault Other [employer] Other 07-25-2021 18:45-0400 Respiratory rate 18 /min Mallory Yuen Other [employer] Other 07-25-2021 18:45-0400 SaO2% (BldA) [Mass fraction] 96 % Mallory Wilfrid Other [employer] Other Encounters Encounter Date Encounter Type Care Provider Facility Start: 10-17-2023 Postop follow up vis it related to original px David Mcfarland II [facility] Start: 10-17-2023 End: 10-17-2023 ambulatory NON STAFF [facility] Work Phone: Start: 10-17-2023 End: 10-17-2023 Patient encounter procedure [facility] Start: 10-15-2023 ([facility] RD FU) [facility] F/ U [employer] Grecia Carrera [facility] Start: 10-15-2023 End: 10-15-2023 ambulatory Grecia Henryt Other [employer] Other Start: 10-15-2023 Registered [facility] Work Phone: Start: 10-02-2023 End: 10-02-2023 ambulatory Rolando Castellanos Other [employer] Other Start: 10-02-2023 Telephone encounter Rolando dhillon [facility] Start: 09-19-2023 End: 09-19-2023 ambulatory David Mabscott II Other [employer] Other Start: 09-19-2023 Postop follow up vis it related to original px Carrie Perea [facility] Start: 09-19-2023 Telephone encounter David Mabscott II [facility] Start: 09-18-2023 End: 09-18-2023 ambulatory Rolando Castellanos Other [employer] Other Start: 09-18-2023 Follow-up encounter Rolando dhillon [facility] Start: 09-17-2023 ([facility] RD FU) [facility] F/ U [employer] Grecia Carrera [facility] Start: 09-17-2023 End: 09-17-2023 ambulatory Grecia Fitt Other [employer] Other Start: 09-10-2023 End: 09-10-2023 ambulatory David Bartolo II Other [employer] Other Start: 09-10-2023 Telephone encounter David Mcelroyisle II [facility] Start: 09-03-2023 End: 09-03-2023 ambulatory David M Mabscott II Facility:[facility] Start: 09-03-2023 End: 09-03-2023 Admission to same day surgery center MD Waqas Pierce Work Phone: [facility] [place] Start: 09-03-2023 End: 09-03-2023 ambulatory MD Waqas Pierce Work Phone: [facility] Work Phone: Start: 08-31-2023 (Prolonged) Prolonge d Services David Mcelroyisle II [facility] Start: 08-31-2023 End: 08-31-2023 ambulatory David Rdzle II Other [employer] Other Start: 08-31-2023 Registered Recurring MD Waqas Pierce Work Phone: [facility] [place] Start: 08-30-2023 End: 08-30-2023 ambulatory David Mcelroyisle II Other [employer] Other Start: 08-30-2023 Office outpatient vi sit 40 minutes David Mabscott II [facility] Start: 08-28-2023 End: 08-28-2023 ambulatory David M Mabscott II Facility:[facility] Start: 08-28-2023 End: 08-28-2023 ambulatory MD Waqas Pierce Work Phone: [facility] Work Phone: Start: 08-28-2023 End: 08-28-2023 Patient encounter procedure MD Waqas Pierce Work Phone: [facility]-Pre-Surgical Testing Work Phone: Start: 08-21-2023 End: 08-21-2023 ambulatory Waqas Pierce Other [employer] Other Start: 08-21-2023 Encounter for other preprocedural examination Waqas Pierce [facility] Start: 08-21-2023 Office outpatient vi sit 25 minutes Waqas Pierce [facility] Start: 08-15-2023 End: 08-15-2023 ambulatory David Mcfarland II Facility:[facility] Start: 08-15-2023 End: 08-15-2023 ambulatory MD Waqas Pierce Work Phone: [facility] Work Phone: Start: 08-15-2023 End: 08-15-2023 Patient encounter procedure MD Waqas Pierce Work Phone: [facility] Start: 08-13-2023 Registered Recurring MD Waqas Pierce Work Phone: [facility] Work Phone: Start: 08-13-2023 ([facility] RD FU) [facility] F/ U [employer] Grecia Carrera [facility] Start: 08-13-2023 End: 08-13-2023 ambulatory David Mcfarland II [facility] [employer] Other Start: 08-06-2023 End: 08-06-2023 ambulatory David Mcfarland II Other [employer] Other Start: 08-06-2023 Telephone encounter David Mcfarland II [facility] Start: 08-01-2023 End: 08-01-2023 ambulatory Waqas Pierce Other [employer] Other Start: 08-01-2023 Telephone encounter Waqas Pierce [facility] Start: 07-31-2023 (Televisit) Televisit Waqas Pierce [facility] Start: 07-31-2023 End: 07-31-2023 ambulatory Waqas Pierce Other [employer] Other Start: 07-26-2023 End: 07-26-2023 ambulatory Rolando Castellanos Other [employer] Other Start: 07-26-2023 Follow-up encounter Rolando dhill[facility] Start: 07-26-2023 Telephone encounter David Mcfarland II [facility] Start: 07-23-2023 ([facility] RD FU) [facility] F/ U [employer] Grecia Carrera [facility] Start: 07-23-2023 End: 07-23-2023 ambulatory Grecia Henryt Other [employer] Other Start: 07-16-2023 End: 07-16-2023 ambulatory [facility] Start: 07-09-2023 End: 07-09-2023 ambulatory Rolandotimothy Reyesdiff Other [employer] Other Start: 07-09-2023 Telephone encounter Rolando dhillon [facility] Start: 06-27-2023 End: 06-27-2023 ambulatory David Mcfarland II Other [employer] Other Start: 06-27-2023 Office outpatient vi sit 25 minutes David Bartolo II [facility] Start: 06-19-2023 End: 06-19-2023 ambulatory Waqas Pierce Other [employer] Other Start: 06-19-2023 Telephone encounter Waqas Pierce [facility] Start: 06-18-2023 ([facility] RD FU) [facility] F/ U [employer] Grecia Carrera [facility] Start: 06-18-2023 End: 06-18-2023 ambulatory Grecia Fitt Other [employer] Other Start: 06-14-2023 End: 06-14-2023 ambulatory Rolando Castellanos Other [employer] Other Start: 06-14-2023 Follow-up encounter Rolando Castellanos [facility] Start: 06-11-2023 End: 06-11-2023 ambulatory Waqas Pierce Other [employer] Other Start: 06-11-2023 Encounter for genera l adult medical examination without abnormal findings Waqas Kari [facility] Start: 06-11-2023 Periodic preventive med est patient 40-64yrs Waqasyunior Pierce [facility] Start: 06-01-2023 End: 06-01-2023 ambulatory Waqas Kari Other [employer] Other Start: 06-01-2023 Telephone encounter Waqas Kari [facility] Start: 05-28-2023 End: 05-28-2023 ambulatory Waqas Kari Other [employer] Other Start: 05-28-2023 Telephone encounter Waqas Kari [facility] Start: 05-14-2023 ([facility] RD FU) [facility] F/ U [employer] Grecia Carlt [facility] Start: 05-14-2023 End: 05-14-2023 ambulatory Grecia Fitt Other [employer] Other Start: 04-16-2023 ([facility] RD FU) [facility] F/ U [employer] Grecia Fitt [facility] Start: 04-16-2023 End: 04-16-2023 ambulatory Grecia Fitt Other [employer] Other Start: 03-28-2023 ambulatory NON STAFF Facility:[facility] Start: 03-21-2023 End: 03-21-2023 ambulatory Waqas Kari Other [employer] Other Start: 03-21-2023 Telephone encounter Waqas Pierce [facility] Start: 02-22-2023 ambulatory MER MAYBERRY . Facil ity:H1 Start: 02-13-2023 End: 02-14-2023 ambulatory AMY Iverson [facility] Facility:[facility] Start: 01-31-2023 End: 01-31-2023 ambulatory Waqas Pierce Other [employer] Other Start: 01-31-2023 Telephone encounter Waqas Pierce [facility] [address] Start: 01-30-2023 End: 01-31-2023 ambulatory AMY Iverson [facility] Facility:[facility] Start: 01-19-2023 End: 01-20-[address] ROLANDO CASTELLANOS Facility:[facility] Start: [facility]-11-2023 [facility] ial Provider Grecia Carrera [facility] Start: 01-11-2023 End: 01-11-2023 ambulatory Grecia Carrera Other [employer] Other Start: 01-09-2023 End: 01-10-2023 ambulatory AMY Iverson [facility] Facility:[facility] Start: 12-25-2022 End: 12-25-2022 ambulatory Junior Mcgowan Other [employer] Other Start: 12-25-2022 Telephone encounter [facility] Start: 12-22-2022 End: 12-23-2022 ambulatory AMY Iverson [facility] Facility:H1 Start: 12-18-2022 End: 12-18-2022 ambulatory Junior Mcgowan Other [employer] Other Start: 12-18-2022 Telephone encounter Junior King [facility] Start: 12-15-2022 End: 12-15-2022 ambulatory Waqas Pierce Other [employer] Other Start: 12-15-2022 Telephone encounter Waqas Pierce [facility] Start: 12-12-2022 Telephone encounter Rolando Vasquez [facility] Start: 12-12-2022 End: 12-13-[address] WAQAS PIERCE [employer] Other Start: 12-06-2022 Telephone encounter Waqas Pierce [facility] Start: 12-06-2022 End: 12-07-2022 ambulatory Efrain CORTES [employer] Other Start: 12-01-2022 End: 12-02-[address] WAQAS PIERCE Facility: Start: 11-20-2022 End: 11-20-2022 ambulatory Rolando Castellanos Other [employer] Other Start: 11-20-2022 Telephone encounter Rolando Vasquez [facility] Start: 11-17-2022 Telephone encounter Waqas Pierce [facility] Start: 11-17-2022 End: 11-18-[address] WAQAS PIERCE [employer] Other Start: 11-16-2022 End: 11-16-2022 ambulatory Rolando Castellanos Other [employer] Other Start: 11-16-2022 Follow-up encounter Rolando Castellanos [facility] Start: 11-14-2022 End: 11-14-2022 ambulatory Grecia Carlt Other [employer] Other Start: 11-14-2022 IBT FOR OBESITY GROU P 2-10 30M Grecia Carlt [facility] Start: 11-13-2022 End: 11-13-2022 ambulatory Waqas Pierce Other [employer] Other Start: 11-13-2022 Telephone encounter Waqas Pierce [facility] Start: 11-08-2022 End: 11-09-2022 ambulatory Efrain CORTES Facility:[facility] Start: 11-08-2022 End: 11-08-2022 Patient encounter procedure Efrain CORTES General Surgery [facility] [place] Start: 11-06-2022 End: 11-07-[address] WAQAS PIERCE Facility:[facility] Start: 11-05-2022 Encounter for gynecological examination (general) (routine) without abnormal findings DR FRIEDA LOCKE . [facility] Start: 11-03-2022 End: 11-04-[address] WAQAS PIERCE Facility:[facility] Start: 10-30-2022 End: 10-31-[address] WAQAS PIERCE Facility:[facility] Start: 10-25-2022 End: 10-25-2022 ambulatory Waqas Pierce Other [employer] Other Start: 10-25-2022 Telephone encounter Waqas Pierce [facility] Start: 10-24-2022 End: 10-24-2022 ambulatory Rolando Castellanos Other [employer] Other Start: 10-24-2022 Telephone encounter Rolando Vasquez [facility] Start: 10-23-2022 Office outpatient vi sit 15 minutes Waqas Pierce [facility] Start: 10-23-2022 Telephone encounter Waqas Pierce [facility] Start: 10-23-2022 End: 10-24-2022 ambulatory NON STAFF [facility] Work Phone: Start: 10-23-2022 End: 10-23-2022 Departed Referred [facility] [place] Work Phone: Start: 10-20-2022 End: 10-20-2022 ambulatory Waqas Pierce Other [employer] Other Start: 10-20-2022 Telephone encounter Waqas Pierce [facility] Start: 10-17-2022 End: 10-18-[address] WAQAS PIERCE Facility:[facility]1 Start: 10-13-2022 End: 10-13-2022 ambulatory Rachel Vela Other [employer] Other Start: 10-13-2022 Nutrition therapy Rachel Vela [facility] Start: 10-13-2022 Telephone encounter Rachel Vela [facility] Start: 10-13-2022 Registered Recurring [facility] Work Phone: Start: 10-10-2022 End: 10-11-[address] WAQAS PIERCE Facility:[facility]1 Start: 10-06-2022 End: 10-06-2022 ambulatory Waqas Pierce Other [employer] Other Start: 10-06-2022 Telephone encounter Waqas Pierce [facility] Start: 10-04-2022 (Procedure) Rayne Mcgowan [facility] Start: 10-04-2022 End: 10-04-2022 ambulatory Junior Mcgowan Other [employer] Other Start: 10-03-2022 End: 10-04-[address] WAQAS PIERCE [employer] Other Start: 10-03-2022 Telephone encounter Junior King [facility] [place] Start: 09-27-2022 End: 09-27-2022 ambulatory Junior Mcgowan Other [employer] Other Start: 09-27-2022 Telephone encounter Junior King [facility] Start: 09-19-2022 End: 09-20-[address] WAQAS PIERCE Facility:[facility] Start: 09-11-2022 End: 09-12-[address] WAQAS PIERCE Facility:[facility] Start: 09-06-2022 End: 09-06-2022 Patient encounter procedure [facility] Start: 09-06-2022 End: 09-06-2022 ambulatory NON STAFF [facility] Work Phone: Start: 09-06-2022 FQHC visit new patient David Rdz anoop BAUGH [facility] Start: 09-06-2022 End: 09-06-2022 ambulatory KIMBERLY MARJORIE [facility] Start: 08-28-2022 End: 08-29-[address] WAQAS PIERCE Facility:[facility]1 Start: 08-18-2022 Adult health examination Grecia Carrera Other [employer] Other Start: 08-18-2022 Gynecological examination normal Grecia Carrera Other [employer] Other Start: 08-18-2022 End: 08-19-[address] [...] Encounter for other preprocedural examination AMY KASPER [facility] Start: 04-24-[address] WAQAS [...] Pre-procedure evalua tion check Grecia Carrera Other [employer] Other Start: 07-25-2021 Office outpatient vi sit 15 minutes Mallory Yuen [facility] Start: 06-23-2021 Office outpatient vi sit 25 minutes Junior Mcgowan [facility] [place] Start: 06-23-2021 Telephone encounter [facility] Start: 12-16-2020 End: 12-17-2020 ambulatory REFERRED SELF Facility:[facility] Procedures Date Procedure Procedure Detail Performing Clinician [...] Surgery: [id number] Result Comment: PERF ORMED BY: [facility] [place] [address] PATHOLOGIST SHELL ASSEMBLER SUAD ARREAGA M.D. Start: 08-28-2023 Urine culture MD Waqas Pierce Work Phone: Start: 08-15-2023 Plain X-ray of right hip MD Waqas Pierce Work Phone: Start: 10-23-2022 Urine culture Start: 09-06-2022 Plain X-ray of right hip Start: 04-24-2022 Excision of Left Tarsal, Open Approach DR WAQAS PIERCE Start: 04-24-2022 Insertion of Tissue Story Teller into Left Foot Subcutaneous Tissue and Fascia, [...] Bilateral bone spur of calcaneum (disorder) Efrain CORTSE Decompression of median nerve Efrain CORTES Comment [...] Activity Detail Author Start: 09-03-2023 Hospital admission [facility] Start: 09-03-2023 End: 09-03-2023 [facility] Start: 09-03-2023 Physical therapy procedure [facility] Start: 08-28-2023 [facility] Start: 08-28-2023 Bacteria identified in Urine by Culture [facility] Bacteria identified in Urine by Culture [facility] Immunizations Immunization Date Immunization Notes Care Provider Fa cility 08-31-2022 COVID-19 (Pfizer) Bivalent Booster, Age 12Y+ [facility] 08-31-2022 influenza virus vaccine, unspecified formulation Efrain CORTES [facility] [place] 08-31-2022 SARS-CoV-2 (COVID-19 ) [id number] Efrain CORTES [facility] 02-24-2022 COVID-19 (Pfizer); Translations: [COVID-19 (Pfizer)] MD Waqas Pierce Work Phone: [facility] 02-24-2022 SARS-CoV-2 mRNA (vahrahylooj-ewtp-eqoqh se) vaccine Efrain CORTES General Surgery [place] 08-19-2021 COVID-19 (Pfizer) [facility] 08-19-2021 SARS-CoV-2 (COVID-19 ) mRNA BNT-162b2 vax Efrain CORTES General Surgery [place] 01-19-2021 COVID-19 (Pfizer) [facility] 01-19-2021 SARS-CoV-2 (COVID-19 ) mRNA BNT-162b2 vax Efrain NILL General Surgery [place] 12-31-2020 COVID-19 (Pfizer) [facility] 12-31-2020 SARS-CoV-2 (COVID-19 ) mRNA BNT-162b2 stephie CORTES General Surgery [place] 06-25-2020 influenza virus vaccine, split virus (incl. purified surface antigen) Grecia Carrera Other [employer] Other 06-25-2020 pneumococcal polysaccharide vaccine, 23 valent Grecia Carrera Other [employer] Other Payers Date Payer Category Payer Self-pay [id number] Unknown [id number] 2.16.840.1.437958.3.579.2.647 1960 Unknown [id number] 2.16.840.1.994697.3.579.2.727 1962 Unknown [id number] 2.16.840.1.122453.3.579.2.727 1962 Unknown [id number] 2.16.840.1.051855.3.579.2.593 1962 Unknown [id number] 2.16.840.1.287838.3.579.2.593 1962 Unknown [id number] 2.16.840.1.214406.3.579.2.593 1962 Unknown [id number] 2.16.840.1.442269.3.579.2.593 1962 Unknown [id number] 2.16.840.1.062953.3.579.2.593 1962 Unknown [id number] 2.16.840.1.496307.3.579.2.593 1962 Unknown [id number] 2.16.840.1.488082.3.579.2.593 1962 Unknown [id number] 2.16.840.1.290366.3.579.2.593 1962 Unknown [id number] 2.16.840.1.023329.3.579.2.593 1962 Unknown [id number] 2.16.840.1.063752.3.579.2.593 1962 Unknown [id number] 2.16.840.1.310294.3.579.2.593 1962 Unknown [id number] 2.16.840.1.769142.3.579.2.593 1962 Unknown [id number] 2.16.840.1.641704.3.579.2.593 1962 Unknown [id number] 2.16.840.1.884088.3.579.2.593 1962 Unknown [id number] 2.16.840.1.437436.3.579.2.593 1962 Unknown [id number] 2.16.840.1.427404.3.579.2.593 1962 Unknown [id number] 2.16.840.1.732445.3.579.2.593 1962 Unknown [id number] 2.16.840.1.228836.3.579.2.593 1962 Unknown [id number] 2.16.840.1.302353.3.579.2.593 1962 Unknown [id number] 2.16.840.1.057977.3.579.2.593 1962 Unknown [id number] 2.16.840.1.135605.3.579.2.593 1962 Unknown [id number] 2.16.840.1.403000.3.579.2.593 1962 Unknown [id number] 2.16.840.1.024790.3.579.2.593 1962 Unknown [id number] 2.16.840.1.588082.3.579.2.593 1962 Unknown [id number] 2.16.840.1.923522.3.579.2.593 1962 Unknown [id number] 2.16.840.1.664961.3.579.2.593 1962 Unknown [id number] 2.16.840.1.406713.3.579.2.593 1962 Unknown [id number] 2.16.840.1.021668.3.579.2.593 1962 Unknown [id number] 2.16.840.1.364956.3.579.2.593 1962 Unknown [id number] 2.16.840.1.921144.3.579.2.593 1962 Unknown [id number] 2.16.840.1.312262.3.579.2.593 1962 Unknown [id number] 2.16.840.1.312447.3.579.2.593 1962 Unknown [id number] 2.16.840.1.123370.3.579.2.593 1962 Unknown [id number] 2.16.840.1.412551.3.579.2.593 1962 Unknown [id number] 2.16.840.1.077510.3.579.2.593 1962 Unknown [id number] 2.16.840.1.312796.3.579.2.593 1962 Unknown [id number] 2.16.840.1.479244.3.579.2.593 1962 Unknown [id number] 2.16.840.1.443241.3.579.2.593 1962 Unknown [id number] 2.16.840.1.502756.3.579.2.593 1962 Unknown [id number] 2.16.840.1.379760.3.579.2.593 1962 Unknown [id number] 2.16.840.1.542769.3.579.2.593 1962 Unknown [id number] 2.16.840.1.288240.3.579.2.593 1962 Unknown [id number] 2.16.840.1.539297.3.579.2.593 1959 Unknown [id number] 2.16. 840.1.836347.19 1959 Unknown [id number] Unknown [id number] 2.16.840.1.488187.3.579.2.531 Unknown [id number] 2.16.840.1.165344.3.579.2.531 Unknown [id number] 2.16.840.1.173687.3.579.2.531 Unknown [id number] 2.16.840.1.471853.3.579.2.531 Unknown [id number] 2.16.840.1.913396.3.579.2.531 Worker's Compensation [id number] Worker's Compensation [facility] [id number] Social History Date Type Detail Facility Unknown if ever smoked [employer] Other Sex Assigned At [facility] Start: 1960 Sex Assigned At Female F [facility] Start: 11-08-2022 End: 09-03-2023 Tobacco smoking status Ex-smoker (finding) General Surgery Mary Comment on above: smoked one year, souleymane t 30 years ago Tobacco smoking status Never Gener al Surgery Mary Comment on above: smoked one year, souleymane t 30 years ago Medical Equipment Procedure Code Equipment Code Equipment Origin al Text Equipment Identifier Dates Arthroplasty, hip, total, anterior approach Acetabular shell [id number] FDA Start: 09-03-2023 Arthroplasty, hip, total, anterior approach Ceramic femoral head prosthesis ()[id number] FDA Start: 09-03-2023 Arthroplasty, hip, total, anterior approach Coated hip femur prosthesis, modular ()[id number] FDA Start: 09-03-2023 Arthroplasty, hip, total, anterior approach Non-constrained polyethylene acetabular liner ()[id number] FDA Start: 09-03-2023 Start: 02-13-2023 Goals Date [...] Z96.641) Oct, Other [facility] at [facility] on 09/03/2023 Doing well Patient may continue increasing activities as tolerated. Continue taking erxl-xlq-apvzf er anti-inflammat ories as needed for assistance with swelling and pain associated with the operative extremity. Follow-up in 6 weeks for repeat examination and repeat x-rays. [employer] Other 01-15-2024 Evaluation note* Encounter Date Diagnosis Assessment Notes Treatment Notes Treatment Clinical Notes Oct, Obesity (ICD-10 - E66.9) Oct, BMI 40.0-44.9, adult (ICD-10 - Z68.41) Oct, Other Summary of Visi t: (A) Discussed including more vegetables (B) Discussed plant proteins (C) Provided recipes [employer] Other 01-02-2024 Evaluation note* Encounter Date Diagnosis Assessment Notes Treatment Notes Treatment Clinical Notes Oct, Hypothyroidism (ICD-10 - E03.9) [employer] Other 12-20-2023 Evaluation note* Encounter Date Diagnosis [...] right artificial hip joint (ICD-10 - Z96.641) [employer] Other 12-19-2023 Evaluation note* Encounter Date Diagnosis [...] Aug, Metabolic syndrome X (ICD-10 - E88.81) [employer] Other 12-18-2023 Evaluation note* Encounter Date Diagnosis Assessment Notes Treatment Notes Treatment Clinical Notes Aug, Obesity (ICD-10 - E66.9) Aug, BMI 40.0-44.9, adult (ICD-10 - Z68.41) Aug, Other Summary of Visi t: (A) Discussed including more vegetables (B) Answered general nutrition-related questions (C) DIscussed options for including more water [employer] Other 12-01-2023 Evaluation note* Encounter Date Diagnosis [...] patient could proceed with surgery safely. The dining room manager was vital for surgery timing and scheduling [...] plans. Prolonged services time spent: 31 minutes [employer] Other 11-30-2023 Evaluation note* Encounter Date Diagnosis [...] therapy arrives. Joints Meeting Checklist - Pharmacy: [facility] to bed - Approach/Technique: anterior, [place] bed - Implants: Avenir Complete/G7; - Anesthesia: general vs spinal - Blocks: Fascia iliaca - Preop Antibiotics: Ancef and Vanco - TXA: yes-systemic - Positioning/OR Bed: supine on [place] bed - Intraop X-ray: yes - Alejandra: [...] above surgery. OARRS report generated and reviewed. [employer] Other 11-21-2023 Evaluation note* Encounter Date Diagnosis [...] symptoms. Any developing patterns. Stay well hydrated. [employer] Other 11-13-2023 Evaluation note* Encounter Date Diagnosis Assessment Notes Treatment Notes Treatment Clinical Notes Aug, Obesity (ICD-10 - E66.9) Aug, BMI 40.0-44.9, adult (ICD-10 - Z68.41) Aug, Other Summary of Visi t: (A) Continue current regimen (B) Much emotional support provided today (C) Encouraged continued follow up with counselor [employer] Other 10-31-2023 Evaluation note* Encounter Date Diagnosis Assessment Notes Treatment Notes Treatment Clinical Notes Jul, Acute laryngitis (ICD-10 - J04.0) Patient denies bacterial infection symptoms such as fever facial pressure or chills. Patient has not taken a COVID test. Discussed vanr-jfi-lvpgbbr medications to use along with steroid pills that can improve her discomfort and laryngitis going forward. Advised that the steroids could elevate her blood sugar and to be mindful of that accordingly. 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) Jul, Other osteoporosis without current pathological fracture (ICD-10 - M81.8) Jul, Osteoarthritis of right hip (ICD-10 - M16.11) [employer] Other 10-23-2023 Evaluation note* Encounter Date Diagnosis Assessment Notes Treatment Notes Treatment Clinical Notes Jul, Obesity (ICD-10 - E66.9) Jul, BMI 40.0-44.9, adult (ICD-10 - Z68.41) Jul, Other Summary of Visi t: (A) Continue current regimen (B) Discussed ways to include more water (C) Discussed ways to include more vegetables [employer] Other [id number] NoteShe admits intermittent orthostasis when she is bending over working in the yard and upon standing she gets lightheaded and dizzy. Denies syncope and admits that she is chronically dehydrated and does not drink enough. Therefore recommended at least 2 L of water per day, can intermittently have electrolyte replacement drinks like Gatorade or Powerade or Pedialyte she voiced understandingUnLake County Memorial [facility]10-16-2023 NoteShe is working on weight loss with her PCP and legal instructor.[facility] 07-16-2023 NoteStable with metoprolol 25 mg dailyUnLake County Memorial Hospital - West10-16-2023 NoteContinue atorvastatin 20 mg Liver function normal, cholesterol and LDL levels well controlled in light she does not have CAD.[facility]10-16-2023 NoteUTP CARDIOLOGY PROGRESS NOTE HPI: Nicol Smith [...] TABLET BY MOUTH TWICE DAILY NEEDED HYDROcodone-acetaminophen ([place]an[place]) 5-325 mg tablet hydrocodone 5 mg-acetaminophen 325 [...] on weight loss with her PCP and legal instructor. Orthostasis She admits intermittent orthostasis when she is bending over working in the yard and upon standing she gets lightheaded an (more content not included)... [facility]10-16-2023 NotePatient here c/o dizziness only with bending [...] weakness. All other systems reviewed and are negative.[facility] 06-27-2023 Evaluation note* Encounter Date Diagnosis Assessment [...] the patient works on weight loss management. [employer] Other 09-18-2023 Evaluation note* Encounter Date Diagnosis [...] meals available that fit the plate method [employer] Other 09-14-2023 Evaluation note* Encounter Date Diagnosis [...] Jun, Metabolic syndrome X (ICD-10 - E88.81) [employer] Other 09-11-2023 Evaluation note* Encounter Date Diagnosis [...] E55.9) discussed supplementation. will check D level. [employer] Other 08-28-2023 Evaluation note* Encounter Date Diagnosis Assessment Notes Treatment Notes Treatment Clinical Notes May, Hypothyroidism (ICD-10 - E03.9) [employer] Other 08-14-2023 Evaluation note* Encounter Date Diagnosis Assessment Notes Treatment Notes Treatment Clinical Notes May, Obesity (ICD-10 - E66.9) May, BMI 40.0-44.9, adult (ICD-10 - Z68.41) May, Other Summary of Visi t: (A) Discussed cooking various foods (B) Find control in indulgences (C) Reviewed the plate method [employer] Other 07-17-2023 Evaluation note* Encounter Date Diagnosis Assessment Notes Treatment Notes Treatment Clinical Notes Mar, Obesity (ICD-10 - E66.9) Mar, BMI 40.0-44.9, adult (ICD-10 - Z68.41) Mar, Other Summary of Visi t: (A) Discussed cooking various foods (B) Find control in indulgences (C) emphasize self-care [employer] Other 05-17-2023 NotePROCEDURE: XR FOOT LT MIN [...] Electronically authenticated by: ARIELA SCHWAB Date: 2023-02-14 06:48[facility]04-13-2023 Evaluation note* Encounter Date Diagnosis [...] 2. Increase veggies, follow the plate method [employer] Other 03-14-2023 Evaluation note* Encounter Date Diagnosis Assessment Notes Treatment Notes Treatment Clinical Notes Nov, Abnormal laboratory test result (ICD-10 - R89.9) [employer] Other 03-08-2023 NoteOPERATIVE NOTE OPERATION DATE: 12/06/2022 [...] in 10 years. CC: Waqas Pierce M.D.[facility] [id number] Evaluation note* Encounter Date Diagnosis Assessment Notes [...] - M16.10) Nov, Hypertension (ICD-10 - I10) [employer] Other 02-14-2023 Evaluation note* Encounter Date Diagnosis [...] patient set personal goal using given handout. [employer] Other 02-08-2023 NoteChief Complaint consultation for colonoscopy [...] Years., 11/08/2022 Family History (more content not included)...[facility] HealthComment on above:Result Comment: Electronically Signed By: SOPHIA PINEDA, Efrain Layne\Date and Time Signed: 11/08/22 15:29 [id number] Evaluation note* Encounter Date Diagnosis Assessment Notes [...] - G47.33) presently compliant with machine, etc [employer] Other 01-13-2023 Evaluation note* Encounter Date Diagnosis [...] Patient is interested in meeting with our physician allergist immunologist, telephone encounter started to connect with her [...] the week. Encouraged to take advantage of physician allergist immunologist available at [facility] that can help work around limitations. She is open to meeting with our physician allergist immunologist for guidance on exercises she can complete with her severe limitations from her foot, hip and back. Telephone encounter started. Oct, Plantar fasciitis (ICD-10 - M72.2) Oct, Arthritis of hip (ICD-10 - M16.10) Oct, Impaired fasting glucose (ICD-10 - R73.01) [employer] Other 12-07-2022 Evaluation note* Encounter Date Diagnosis [...] while she works on her weight loss. [employer] Other 12-07-2022 NoteUTP CARDIOLOGY PROGRESS NOTE HPI: [...] 1 TABLET BY MOUTH TWICE DAILY HYDROcodone-acetaminophen ([place]an[place]) 5-325 mg tablet hydrocodone 5 mg-acetaminophen 325 [...] return to cardiology as needed. This is reasonable.[facility]12-07-2022 NoteContinue lipitor [facility]12-07-2022 NoteContinue toprolUnLake County Memorial Hospital [facility]12-07-2022 NoteContinue [facility] centerUnL[facility]11-18-2022 NotePROCEDURE: XR HIP RT 2 3V WO PELVIS COMPARISON: None. HISTORY: Pain in right hip joint FINDINGS: BONES:No acute fracture or dislocation. Shallow right acetabulum. Moderate to severe osteoarthropathy with joint space narrowing and marginal osteophyte formation SOFT TISSUES:Negative. No visible soft tissue swelling. EFFUSION:None visible. OTHER: Negative. IMPRESSION: Moderate to severe osteoarthritis with shallow acetabulum Electronically authenticated by: SHAWNEE KELLY Date: 2022-08-18 15:54[facility]11-18-2022 NotePROCEDURE: XR FOOT LT MIN [...] changes Severe osteopenia Electronically authenticated by: SHAWNEE KELYL Date: 2022-08-18 15:42[facility]09-16-2022 NotePROCEDURE: XR FOOT LT MIN [...] Electronically authenticated by: SHAWNEE KELLY Date: 2022-06-16 16:24[facility]09-16-2022 NotePROCEDURE: XR FOOT LT MIN [...] Electronically authenticated by: SHAWNEE KELLY Date: 2022-06-16 16:24[facility]08-11-2022 NotePROCEDURE: XR FOOT LT MIN [...] Electronically authenticated by: SHAWNEE KELLY Date: 2022-05-11 17:16[facility]07-25-2022 NotePROCEDURE: XR FOOT LT MIN [...] Electronically authenticated by: ARIELA SCHWAB Date: 2022-04-24 14:11[facility]07-25-2022 NotePROCEDURE: XR FOOT LT 2V [...] Electronically authenticated by: ARIELA SCHWAB Date: 2022-04-24 11:54[facility]07-23-2022 NotePROCEDURE: XR FOOT LT MIN [...] Electronically authenticated by: ARIELA SCHWAB Date: 2022-04-22 20:52[facility]07-15-2022 NotePROCEDURE: XR FOOT LT MIN [...] Progression of osteopenia Electronically authenticated by: SHAWNEE KELLY Date: 2022-04-14 17:03[facility]10-25-2021 Evaluation note* Encounter Date Diagnosis [...] Patient care instructions given in writting by [facility] document. [employer] Other [id number] Evaluation note* Encounter Date Diagnosis Assessment Notes [...] note writ ten by Safia Calderon CMA, Body Mechanic. Edited and approved by Dr. Junior Mcgowan MD. [employer] Other Evaluation + Plan note No data available for this section General Surgery Mary Evaluation noteNo InformationNort Tutamee Other Evaluation noteNo assessment information available [facility] Work Phone: Hisxjzx general Narrative - Reported* Type Description Date Medical History DDD (degenerative disc disease), lumbar Surgical History hip replacement Surgical History tonsillectomy Surgical History carpal tunnel release bilateral Hospitalization History see above [employer] Other History general Narrative - Reported* Type Description Date Medical History DDD (degenerative disc disease), lumbar Medical History spinal stenosis Surgical History hip replacement Surgical History tonsillectomy Surgical History carpal tunnel release bilateral Surgical History vein ablasion Hospitalization History see above [employer] Other Hisbhog general Narrative - Reported* Type Description Date Medical History DDD (degenerative disc disease), lumbar Medical History spinal stenosis Surgical History hip replacement Surgical History tonsillectomy Surgical History carpal tunnel release bilateral Surgical History vein ablasion Surgical History skin graft left foot Hospitalization History see above [employer] Other Hiskssv general Narrative - Reported* Type Description Date [...] x3 202 2 Hospitalization History see above [employer] Other Hishtno general Narrative - Reported* Type Description Date [...] HIp replacement 09/03/23 Hospitalization History see above [employer] Other Hospital Discharge instructions No data available for this section [facility] Discharge instructions Additional Instructions Joint Replacement Discharge Instructions Your safety during your recovery process is important to us. Please seek immediate emergency care if you have sudden chest pain or shortness of breath. 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 You may take gsft-skq-tnqyexe Benadryl if itching occurs without a rash or hives. Icing and elevation will help relieve pain as well, do not underestimate the power of ice and elevation. We do recommend that you stop taking narcotic pain medications by 4-6 weeks after surgery and if necessary, continue to use anti-inflammatory medications such as Mobic (meloxicam), Celebrex (celecoxib), or an hrsn-itr-topajfs medication (Aleve, Motrin, Ibuprofen, etc). Driving an [...] feel free to call our office at [phone]. You are a priority of ours and we will not be upset with you if you call. We would much rather you call to confirm aspects of your recovery process as opposed to possibly hindering your recovery with inappropriate care. We are committed to providing you with the best care possible. David Mcfarland II, MD Updated 12/15/2022[facility] Work Phone: Progress note No data available for this section General Surgery [place] Reason for referral (narrative)* Reason Appt: Diagnosis 1 Depression (F32.9) Referral Organization [facility] Referring Provider First Name Rolando Referring Provider Last Name Jasmin Referring Provider Specialty Internal Me dicine Referred Organization [facility] [place] [address] [place],[address] Referred Provider Specialty Karina s Referral Priority Routine General Notes Anna Jose 2022 01:07:39 PM >Please contact patient to schedule. [employer] Other Summary Purpose Family History Relationship Condition [...] and content) DATE CREATED AUTHOR 04/29/2021 [facility] DATE CREATED AUTHOR AUTHOR'S ORGANIZ ATION 12/20/2022 [facility] DATE CREATED AUTHOR AUTHOR'S ORGANIZ ATION 03/09/[address] [facility] DATE CREATED AUTHOR AUTHOR'S ORGANIZ ATION 07/16/2023 [facility] DATE CREATED AUTHOR AUTHOR'S ORGANIZ ATION 10/18/2023 [facility] REASON FOR VISIT (unrecogniz ed section and [...] BE BASED ON THE PRIMARY CLINICAL RECORDS. [employer] provides no warranty or guarantee of the accuracy or completeness of information in this document.
[2023-11-01 13:16] LABS: Estimated Average Glucose 114 mg/dL; Glycohemoglobin A1C 5.6 % (4.5-6.2)
[2023-11-01 13:22] LABS: Free T4 0.95 ng/dL (0.76-1.46)
[2023-11-01 13:35] LABS: Thyroid Stimulating Hormone 2.713 uIU/mL (0.358-3.740)
== END 2023-11-01 11:57 | disposition home or self-care (01) ==
LOC: LAB 11:57
PROVIDERS: PCP Family Medicine; Visit Provider Family Medicine
DX: E03.9 Hypothyroidism, unspecified (principal); R73.01 Impaired fasting glucose
CPT/HCPCS: 36415; 83036; 84439; 84443

== ENCOUNTER 2023-11-05 10:45 | Outpatient (OUT) | payer OTHER, SELFPAY ==
--- OUTSIDE RECORDS SUMMARY | 2023-11-05 10:48 | XMS_ITS | CCD ---
Author Name Unknown Address [address] [place] [address] Organization [facility] Care Team Providers Care Tool Grinder Name Role Phone SELF, REFERRED Referring Unavailable DAVID LR Admitting Unavailable DAVID LR Attending Unavailable WAQAS PIERCE Primary Care Unavailable DAVID LR Surgeon Unavailable KS Procedure Practitioner Unavailab JUDSON Martinez Surgeon Unavailable KS Procedure Practitioner Unavailab Junior Peterson Unavailable Mallory Yuen Unavailable NON STAFF Primary Care Provider UnavailMD David Merritt II Attending Provider [phone] David Mcfarland II Unavailable MD Waqas Pierce Primary Care Provider MD Waqas Pierce Attending Provider WAQAS PIERCE Primary Care Physician Waqas Pierce Unavailable Rachel Vela Unavailable Rolando Castellanos Unavailable Grecia Carrera Unavailable Efrain CORTES Attending Unavailable Efrain CORTES Attending Unavailable KARI, DR WAQAS Mendez Primary Care Unavailable AMY KASPER Attending Unavailable AMY KASPER Admitting Unavailable KARI, DR WAQAS Mendez Primary Care Unavailable NILSharan Rivera, DR SHARMA Attending Unavailable SOPHIA Rivera, DR SHARMA Admitting Unavailable NILSharan Rivera, DR SHARMA Consulting Unavailable DIEGO WHITLEY Consulting Unavailable MARIA EUGENIA HUTTON Consulting Unavailable KARI, DR WAQAS Mendez Primary Care Unavailable JASMIN, DR MARSHALL Attending Unavailable JASMIN, DR MARSHALL Admitting Unavailable JASMIN, DR MARSHALL Consulting Unavailable KARI, DR WAQAS Mendez Primary Care Unavailable AMY KASPER Attending Unavailable BIDWELL, DR SHAWNEE James Consulting Unavailable HIGHLANDER, AMY Iverson Admitting Unavailable HIGHLANDER, AMY Iverson Consulting Unavailable PIERCE, DR WAQAS Mendez Primary Care Unavailable CHUCKY ., DR MALAVE Attending Unavailable CHUCKY ., DR MALAVE Consulting Unavailable CHUCKY ., DR MALAVE Admitting Unavailable SHAWANDA ., MER IQBLA Admitting Unavailable PIERCE, DR WAQAS Mendez Primary Care Unavailable SHAWANDA ., MER IQBAL Attending Unavailable PIERCE, DR WAQAS Mendez Primary Care Unavailable HIGHLANDER, AMY Iverson Attending Unavailable HIGHLANDER, AMY Iverson Admitting Unavailable JASMIN, DR MARSHALL Attending Unavailable JASMIN, DR MARSHALL Admitting Unavailable JASMIN, DR MARSHALL Consulting Unavailable PIERCE, DR WAQAS Mendez Primary Care Unavailable PIERCE, DR WAQAS Mendez Primary Care Unavailable YO, LEA Attending Unavailable YOLEA Admitting Unavailable HIGHLANDER, AMY Iverson Attending Unavailable [...] Unavailable HIGHLANDER, AMY Iverson Consulting Unavailable HIGHLANDER, AMY Iverson Attending Unavailable HIGHLANDER, AMY Iverson Admitting Unavailable RYANALEX Mendez Consulting Unavailable PIERCE, [...] DR SHAWNEE James Consulting Unavailable HIGHLANDER, AMY D Admitting Unavailable HIGHLANDER, AMY Iverson Consulting Unavailable HIGHLANDER, AMY Iverson Attending Unavailable PIERCE, [...] Unavailable HIGHLANDER, AMY D Admitting Unavailable HIGHLANDER, AMY Iverson Admitting Unavailable HIGHLANDER, AMY Iverson Attending Unavailable PIERCE, DR WAQAS Mendez Primary Care Unavailable WEST, DR SHAWNEE James Consulting Unavailable HIGHLANDER, AMY Iverson Consulting Unavailable PIERCE, DR WAQAS Mendez Primary Care Unavailable HIGHLANDER, AMY Iverson Admitting Unavailable HIGHLANDER, AMY Iverson Attending Unavailable HIGHLANDER, AMY Iverson Attending Unavailable [...] AMY Iverson Admitting Unavailable PIERCE, DR WAQAS Menedz Primary Care Unavailable HIGHLANDER, AMY Iverson Attending Unavailable HIGHLANDER, AMY Iverson Admitting Unavailable PIERCE, DR WAQAS Mendez Primary Care Unavailable HIGHLANDER, AMY Iverson Attending Unavailable HIGHLANDER, AMY Iverson Admitting Unavailable ELICEO HELTON Admitting Unavailable PIERCE, DR WAQAS Mendez Primary Care Unavailable ELICEO HELTON Attending Unavailable LEANN TOMPKINS Consulting Unavailable AMY FOWLER Consulting Unavailable CATRINA, H Attending Unavailable CATRINA, ROWLAND H Admitting Unavailable PIERCE, DR WAQAS Mendez Primary Care Unavailable TOMKYAW, DR ARIELA Vaz Consulting Unavailable LAMIN MOHAN Consulting Unavailable HIGHLUDAY, AMY Iverson Consulting Unavailable AGMELINDA DOVER Consulting Unavailable RANJITH, AMY Iverson Procedure Practitioner Unava ilELICEO Mills Consulting Unavailable CATRINA, ROWLAND H Consulting Unavailable TUNDE NORMAN Consulting Unavailable DEVIN, ANJEL Consulting Unavailable AA, AA Consulting Unavailable PIERCE, DR WAQAS Mendez Primary Care Unavailable CHUCKY ., DR MALAVE Attending Unavailable CHUCKY ., DR MALAVE Consulting Unavailable CHUCKY ., DR MALAVE Admitting Unavailable ZIEBER, DR ARIELA Vaz Consulting Unavailable PIERCE, DR WAQAS Mendez Primary Care Unavailable [facility] AMY Iverson Attending Unavailable HIGHLUDAY, AMY Iverson Admitting Unavailable WEST, DR SHAWNEE [...] PIERCE, DR WAQAS Mendez Primary Care Unavailable [facility], AMY Iverson Attending Unavailable HIGHLANDER, AMY Iverson Admitting Unavailable PIERCE, DR WAQAS Mendez Primary Care Unavailable MISC, DR PEÑA Consulting Unavailable MISC, DR PEÑA Admitting Unavailable MISC, DR PEÑA Attending Unavailable HIGHLANDER, AMY Iverson Attending Unavailable PIERCE, DR WAQAS Mendez Primary Care Unavailable HIGHLANDER, AMY Iverson Admitting Unavailable MARJORIE, KIMBERLY Attending Unavailable MARJORIE, KIMBERLY Attending Unavailable MD David Mcfarland II Attending Provider [phone] MD Waqas Pierce Primary Care Provider [phone] NON STAFF Primary Care Provider Unavailabl e Carrie Perea Unavailable MD David Mcfarland II Attending Provider MD Waqas Pierce Primary Care Provider David Mcfarland II Admitting Unavailabl e NON STAFF Primary Care Unavailable David Mcfarland II Attending UnavailDavid Merritt II Attending Unavailabl e NON STAFF Primary Care Unavailable David Mcfarland II Admitting Unavailabl e NON STAFF Primary Care Unavailable Marcin Grace Admitting Unavailab Marcin Ramos Attending Unavailab David Harrell II Admitting Unavailabl e Waqas Pierce Primary Care Unavailable David Mcfarland II Attending UnavailDavid Merritt II Admitting Unavailabl e NON STAFF Primary Care Unavailable David Mcfarland II Attending Unavailabl e David Mcfarland II Attending Unavailabl e NON STAFF Primary Care Unavailable David Mcfarland II Admitting Unavailsabino e Waqas Pierce Admitting Unavailable Waqas Pierce Attending Unavailable Allergies Allergy Classification Reported Allergen(s) Allergy Type Date of Onset Reaction(s) Facility metFORMIN (1 source) metFORMIN; Translations: [METFORMIN] Drug Allergy 12-17-19 21 [facility] Repository Penicillins (antibiotic) (1 source) Penicillin Drug Allergy 03-11-20 18 [facility] Rep[facility] Serotonin (1 source) Serotonin; Translations: [SEROTONIN] Drug Allergy 12-17-19 21 [facility] Rep[facility] (20 sources) Penicillin G Drug Allergy rash [facility] Other (20 sources) CYMBOLTA Propensity to adverse reactions temporary blindness and couldnt feel herself breathing [facility] Other (20 sources) DULoxetine; Translations: [duloxetine] Drug Allergy 09-05-20 22 Impairment level of vision (disorder) [facility] [place] (20 sources) metFORMIN; Translations: [metformin] Drug Allergy 09-05-20 22 Abdominal mass (finding) [facility] [place] (20 sources) Penicillin; Translations: [penicillin] Drug Allergy 08-08-20 13 Eruption of skin (disorder) [facility] [place] (1 source) DULoxetine Drug Allergy [facility] Rep[facility] (1 source) metFORMIN Drug Allergy [facility] (5 sources) Penicillins; Translations: [PENICILLINS] Drug allergy (disorder) 10-01-19 00 Rash [facility] (20 sources) Rx Essentials Antidepressant *HEMATOPOIETIC AGENTS Propensity to adverse reactions Comment:SERATO SYED [facility] Other (3 sources) Allergies Reconciled Propensity to adverse reactions 08-17-20 Unknown [facility] Other (20 sources) Substance with penicillin structure and antibacterial mechanism of action (substance) Drug allergy Unknown [facility] Other (20 sources) Substance with serotonin re-uptake inhibitor mechanism of action (substance) Drug allergy 09-04-20 12 SEROTONIN HCL [facility] Other (3 sources) patient allergy list reviewed by nurse or physicia Propensity to adverse reactions 12-09-19 14 Comment:Done [facility] Other (3 sources) Serotonin Drug Allergy 08-28-20 temporary blindness, couldn't feel self breath [facility] (1 source) DULoxetine Drug Allergy 08-28-20 [facility] Repository (1 source) metFORMIN Drug Allergy 08-28-20 [facility] Repository (1 source) Penicillins Drug allergy (disorder) 08-28-20 [facility] Repository Medications Current Medications Medication Drug [...] Mar, Active acetaminophen 500 mg oral tablet (16 sources) Start: 08-30-2023 take 2 tablets by mouth every eight hours for pain Acetaminophen 500 MG 2 tablets for pain Orally every 8 hrs for 30 days MED TO BED UPON DISCHARGE DOS: 09/03/23 Aug, Active Tylenol Active [id number] 200 actuat albuterol 0.09 mg/actuat metered dose [...] Ordered docusate sodium 50 mg / sennosides, long term 8.6 mg oral tablet (12 sources) Start: [...] Start: 01-17-2023 take 1 tablet by krysten once daily in the morning Levothyroxine Sodium 50 MCG 1 tablet in the morning on an empty stomach Orally Once a day for 30 day(s) Dec, Active Start: 12-15-2022 take 1 tablet by krysten th once daily in the morning Levothyroxine Sodium 25 MCG 1 tablet in the morning on an empty stomach Orally Once a day for 30 days Nov, Active take 1 tablet by krysten th once daily in the morning Levothyroxine Sodium 75 MCG 1 tablet in the morning on an empty stomach Orally Once a day for 30 days Active 24 hr loratadine 10 mg / [...] 2023 12:00am mounjaro 2.5 mg/0.5ml solution pen-injector (12 sources) Start: 023 Mounjaro 2.5 MG/0.5ML as [...] Once a day Active polyethylene glycol 3350 44464 mg powder for oral solution (12 sources) [...] Orally Not-Taking cefadroxil 500 mg oral capsule (14 sources) Cephalosporin Antibacterial Start: 08-30-2023 take 1 capsule by mouth every twelve hours Cefadroxil 500 MG 1 tablet Orally every 12 hrs for 7 days MED TO BED UPON DISCHARGE DOS: 09/03/23 Aug, Not-Taking/PRN diclofenac sodium 75 mg delayed release [...] sulfate 15 mg extended release oral tablet (14 sources) Opioid Agonist Start: 08-30-2023 take 1 tablet by mouth every twelve hours as needed for pain Morphine Sulfate ER 15 MG 1 tablet for breakthrough pain only Orally every 12 hrs for 5 days MED TO BED UPON DISCHARGE DOS: 09/03/23 Aug, Not-Taking/PRN ondansetron 8 mg oral tablet (14 sources) Serotonin-3 Receptor Antagonist Start: 08-30-2023 take 1 tablet by mouth three times daily as needed for nausea Ondansetron HCl 8 MG 1 tablet as needed for nausea Orally Three times a day for 10 days MED TO BED UPON DISCHARGE DOS: 09/03/23 Aug, Not-Taking/PRN oxyCODONE hydrochloride 5 mg oral tablet (14 sources) Opioid Agonist Start: 08-30-2023 take 1 [...] Translations: [Contracture, 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 Other aftercare (9 sources) Patient encounter status; Translations: [Aftercare following joint replacement surgery] Chronic Other aftercare (2 sources) Aftercare following joint replacement surgery Chronic Other aftercare (2 sources) Other halfway (current) drug therapy; Translations: [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] Onset: 3 Episodic Other circulatory disease (3 sources) Elevated blood-pressure reading without diagnosis of hypertension; Translations: [Elevated blood-pressure reading, without diagnosis of hypertension] Episodic Other connective tissue disease (9 sources) Hip joint prosthesis present; Translations: [Presence [...] 10-17-2023 XR hip RT min 2V(w/wo pelvis)* [address] [address] XRay Report Signed Patient: Nicol Smith MR#: [id number] 9 : 1960 Acct:[id number] Age/Sex: 63 / F ADM Date: 10/17/23 Loc: [facility] Room: Type: [facility] Attending Dr: David Mcfarland II, MD Copies [...] Kane Katz M.D.10/17/2023 3:39 PM Dictation Location: [place] [address] Transcribed By: [facility] 10/17/23 1539 Dictated By: Kane Katz DO 10/17/23 1538 Signed By: 10/17/23 1539 Normal [facility] XR hip RT min 2V(w/wo pelvis)* [facility] Other XR hip RT min 2V(w/wo pelvis)* [facility] Other XR hip RT min 2V(w/wo pelvis)* [address] [place] [address] [facility] Other XR hip RT min 2V(w/wo pelvis)* [place] [address] [facility] Other XR hip RT min 2V(w/wo pelvis)* XRay Report [facility] Other XR hip RT min 2V(w/wo pelvis)* Signed [facility] Other XR hip RT min 2V(w/wo pelvis)* Patient: Nicol Smith MR#: [id number] [facility] Other XR hip RT min 2V(w/wo pelvis)* 9 [facility] Other XR hip RT min 2V(w/wo pelvis)* : 1960 Acct:[id number] [facility] Other XR hip RT min 2V(w/wo pelvis)* Age/Sex: 63 / F ADM Date: 10/17/23 [facility] Other XR hip RT min 2V(w/wo pelvis)* Loc: [facility] Room: Type: [facility] Other XR hip RT min 2V(w/wo pelvis)* Attending Dr: David Mcfarland II, MD [facility] Other XR hip RT min 2V(w/wo pelvis)* Copies to: David Mcfarland MD [facility] Other XR hip RT min 2V(w/wo pelvis)* Ordering Provider: David Mcfarland MD [facility] Other XR hip RT min 2V(w/wo pelvis)* Date of Service: 10/17/23 [facility] Other XR hip RT min 2V(w/wo pelvis)* XR/XR hip RT min 2V(w/wo pelvis)*: Aftercare following joint replacement [facility] Other XR hip RT min 2V(w/wo pelvis)* surgery;Presence of ri [employer] Other XR hip RT min 2V(w/wo pelvis)* 2 views right hip with single view pelvis plain film [facility] Other XR hip RT min 2V(w/wo pelvis)* COMPARISON: 09/03/2023 [employer] Other XR hip RT min 2V(w/wo pelvis)* HISTORY: Status post right total hip arthroplasty [facility] Other XR hip RT min 2V(w/wo pelvis)* ACUTE FINDINGS: None [facility] Other XR hip RT min 2V(w/wo pelvis)* DEGENERATIVE CHANGE: Unremarkable [facility] Other XR hip RT min 2V(w/wo pelvis)* SOFT TISSUE FINDINGS: Unremarkable [facility] Other XR hip RT min 2V(w/wo pelvis)* JOINT EFFUSION: None [facility] Other XR hip RT min 2V(w/wo pelvis)* POSTOP CHANGES: Stable bilateral hip arthroplasties. [facility] Other XR hip RT min 2V(w/wo pelvis)* BONY MINERALIZATION: Adequate [facility] Other XR hip RT min 2V(w/wo pelvis)* XR/XR hip RT min 2V(w/wo pelvis)* [facility] Other XR hip RT min 2V(w/wo pelvis)* IMPRESSION: Stable right hip arthroplasty. [facility] Other XR hip RT min 2V(w/wo pelvis)* Impression dictated by: Kane Katz M.D.10/17/2023 3:39 PM [facility] Other XR hip RT min 2V(w/wo pelvis)* Dictation Location: [place] [address] [facility] Other XR hip RT min 2V(w/wo pelvis)* Transcribed By: [facility] 10/17/23 9505 [facility] Other XR hip RT min 2V(w/wo pelvis)* Dictated By: Kane Katz DO 10/17/23 2319 [facility] Other XR hip RT min 2V(w/wo pelvis)* Signed By: [facility] Other XR hip RT min 2V(w/wo pelvis)* 10/17/23 2758 [facility] Other ABO/Rh Retypeon 09-03-2023 ABO/RH Recheck Result Positive Normal [facility] Comment on above: Result Comment: PERF ORMED BY: [facility] [address] [place] [address] PATHOLOGIST [employer] MANUFACTURER SUAD Killian 09-03-2023 L ------ Specimen: [id number] Received: 09/03/23 Status: GRACIELA [place] Num: [id number] Spec Type: Surgical Subm Dr: David Mcfarland MD Tissues: A Femoral Head - Other than Fracture (RT HIP) Procedures: HE/2, Gross/Micro L3, Decalcification Age/ Patient Sex Location Account Attending Physician RomeoNicol Gonsales 63/F [place] [id number] David Mcfarland MD SPEC NUM: [id number] RECD: 09/03/23 STATUS: GRACIELA CHAVEZ NUM: [id number] SABRINA: 09/03/[address] [facility] [address]: David Mcfarland MD ENTERED: 09/03/[address] [facility] [address]: BEATRICE TYPE: Surgical DEPT: S ORDERED: [...] is taken. Gross examination only. CPT Codes 79117 Specimen: [id number] Received: 09/03/23 Status: GRACIELA Chavez Num: [id number] Spec Type: Surgical Subm Dr: David Mcfarland MD Tissues: A Femoral Head - Other than Fracture (RT HIP) Procedures: HE/2, Gross/Micro L3, Decalcification Patient: Nicol Smith [id number] (Continued) Specimen: [id number] Received: 09/03/23 (Continued) Signed (signature on file) Dez Núñez MD 09/07/23 1345 Specimen: [id number] Received: 09/03/23 Status: GRACIELA Chavez Num: [id number] Spec Type: Surgical Subm Dr: David Mcfarland MD Tissues: A Femoral Head - Other than Fracture (RT HIP) Procedures: HE/2, Gross/Micro L3, Decalcification Patient: Nicol Smith [id number] (Continued) Specimen: [id number] Received: 09/03/23 (Continued) Gross Photo Specimen: [id number] Received: 09/03/23 Status: GRACIELA Chavez Num: [id number] Spec Type: Surgical Subm Dr: David Mcfarland MD Tissues: A Femoral Head - Other than Fracture (RT HIP) Procedures: HE/2, Gross/Micro L3, Decalcification Patient: Nicol Smith [id number] (Continued) Signed (signature on file) Dez Núñez MD 09/07/23 1345 Normal [facility] XR low pelvis w/RT x-table h ipon 09-03-2023 XR low pelvis w/RT x-table hip [facility] [place] [address] XRay Report Signed Patient: Nicol Smith MR#: [id number] 9 : 1960 Acct:[id number] Age/Sex: 63 / F ADM Date: 09/03/23 Loc: [place] Room: Type: [facility] Attending Dr: David Mcfarland II, MD Copies to: David Mcfarland MD Ordering Provider: David Mcfarland MD Date of Service: 09/03/23 XR/XR low pelvis w/RT x-table hip: Total Hip, due in PACU ([id number]) XR/XR hip RT 1V: ANTERIOR HIP IN [...] Anna Hull M.D.09/03/2023 11:53 AM Dictation Location: [place] [address] Transcribed By: SILVIA 09/03/23 115 Dictated By: Anna Hull MD 09/03/23 1150 Signed By: 09/03/23 115 Normal [facility] Automated erythrocytes count in urine sediment (number/area)Ordered By: David Mcfarland on 08-28-2023 RBC Auto (Urine sed) [#/Area] 1-2 [HPF] 0-4 [facility] Automated leukocytes count i n urine sediment (number/area)Ordered By: David Mcfarland on 08-28-2023 WBC Auto (Urine sed) [#/Area] 10-19 [HPF] 0-4 [facility] Basic Metabolic Panelon 08-02 Anion gap [Moles/Vol] 11.1 mmol/L Normal 6.0-15.0 [facility] Comment on above: Performed By: #### C BC, BMP #### [place] [address] [place] #### FRUC #### [facility] , Calcium [Mass/Vol] 9.7 mg/dL Normal 8.6-10.3 [facility] Comment on above: Result Comment: PERF ORMED BY: [place] [address] PATHOLOGIST [employer] MANUFACTURER SUAD ARREAGA M.D. Performed By: #### C BC, BMP #### [facility] [address] [place] [address] [place] #### FRUC #### [facility] , Chloride [Moles/Vol] 107 mmol/L Normal 98-107 [facility] Comment on above: Performed By: #### C BC, BMP #### [facility] [address] [place] [address] [place] #### FRUC #### [facility] , CO2 [Moles/Vol] 26.1 mmol/L Normal 21.0-31.0 [facility] Comment on above: Performed By: #### C BC, BMP #### [facility] [address] [place] [address] [place] #### FRUC #### [facility] , Creatinine [Mass/Vol] 0.96 mg/dL Normal 0.60-1.20 [facility] Comment on above: Performed By: #### C BC, BMP #### [place] [address] [place] #### FRUC #### [facility] , GFR/1.73 sq M.predicted MDRD (S/P/Bld) [Vol rate/Area] mL/min/{1.73_m2} Normal [facility] Comment on above: Performed By: #### C BC, BMP #### [facility] [address] [place] [address] [place] #### FRUC #### [facility] , Glucose [Mass/Vol] 98 mg/dL Normal 70-100 [facility] Comment on above: Result Comment: [place] om Glucose Reference Range is dependent on time and content of last meal. Glucose of more than 200 mg/dL in a nonstressed, ambulatory subject supports the diagnosis of Diabetes Mellitus. ADA recommended reference range Performed By: #### C BC, BMP #### [facility] [address] [place] [address] [place] #### FRUC #### [facility] , Potassium [Moles/Vol] 4.2 mmol/L Normal 3.5-5.1 [facility] Comment on above: Performed By: #### C BC, BMP #### [facility] [address] [place] [address] [place] #### FRUC #### [facility] , Sodium [Moles/Vol] 140 mmol/L Normal 136-145 [facility] Comment on above: Performed By: #### C BC, BMP #### [facility] [address] [place] [address] [place] #### FRUC #### [facility] , Urea nitrogen [Mass/Vol] 17 mg/dL Normal 7-25 [facility] Comment on above: Performed By: #### C BC, BMP #### [facility] [address] [place] [address] [place] #### FRUC #### [facility] , Basophils Auto (Bld) [#/Vol] Ordered By: David Mcfarland on 08-28-2023 Basophils (Bld) [#/Vol] 0.1 10*3/uL 0.0-0.2 [facility] Basophils/100 WBC Auto (Bld) Ordered By: David Mcfarland on 08-28-2023 Basophils/100 WBC (Bld) 1.1 % . [facility] Bilirubin Test strip Ql (U)O rdered By: David Mcfarland on 08-28-2023 Bilirubin Ql (U) Negative Negative [facility] Calcium [Mass/volume] in Ser um or PlasmaOrdered By: David Mcfarland on 08-28-2023 Calcium [Mass/Vol] 9.7 mg/dL 8.6-10.3 [facility] Carbon dioxide, total [Moles /volume] in Serum or PlasmaOrdered By: David Mcfarland on 08-28-2023 CO2 [Moles/Vol] 26.1 mmol/L 21.0-31.0 [facility] Chloride [Moles/volume] in S adela or PlasmaOrdered By: Dvaid Mcfarland on 08-28-2023 Chloride [Moles/Vol] 107 mmol/L 98-107 [facility] Color Auto (U)Ordered By: Arleth Mcfarland on 08-28-2023 Color (U) Yellow Yellow [facility] Complete Blood Count Auto Di ffon 08-28-2023 Basophils (Bld) [#/Vol] 0.1 10*3/uL Normal 0.0-0.2 [facility] Comment on above: Result Comment: PERF ORMED BY: [place] [address] PATHOLOGIST [employer] MANUFACTURER SUAD ARREAGA M.D. Performed By: #### C BC, BMP #### [address] #### FRUC #### [facility] , Basophils/100 WBC (Bld) 1.1 % Normal . [facility] Comment on above: Performed By: #### C BC, BMP #### [place] [address] [place] #### FRUC #### [facility] , Eosinophils (Bld) [#/Vol] 0.1 10*3/uL Normal 0.0-0.45 [facility] Comment on above: Performed By: #### C BC, BMP #### [facility] [address] [place] [address] [place] #### FRUC #### [facility] , Eosinophils/100 WBC (Bld) 1.0 % Normal . [facility] Comment on above: Performed By: #### C BC, BMP #### [facility] [address] [place] [address] [place] #### FRUC #### [facility] , Erythrocyte distribution width (RBC) [Ratio] 17.5 % High 11.9-15.3 [facility] Comment on above: Performed By: #### C BC, BMP #### [facility] [address] [place] [address] [place] #### FRUC #### [facility] , Hematocrit (Bld) [Volume fraction] 36.9 % Normal 34.0-46.4 [facility] Comment on above: Performed By: #### C BC, BMP #### [facility] [address] [place] [address] [place] #### FRUC #### [facility] , Hemoglobin (Bld) [Mass/Vol] 11.9 g/dL Normal 11.8-15.4 [facility] Comment on above: Performed By: #### C BC, BMP #### [facility] [address] [place] [address] [place] #### FRUC #### [facility] , Lymphocytes (Bld) [#/Vol] 1.6 10*3/uL Normal 1.00-4.8 [facility] Comment on above: Performed By: #### C BC, BMP #### [facility] [address] [place] [address] [place] #### FRUC #### [facility] , Lymphocytes/100 WBC (Bld) 25.3 % Normal . [facility] Comment on above: Performed By: #### C BC, BMP #### [place] [address] [place] #### FRUC #### [facility] , MCH (RBC) [Entitic mass] 25.0 pg Normal 24.7-34.3 [facility] Comment on above: Performed By: #### C BC, BMP #### [facility] [address] [place] [address] [place] #### FRUC #### [facility] , MCV (RBC) [Entitic vol] 78.0 fL Low 80-100 [facility] Comment on above: Performed By: #### C BC, BMP #### [facility] [address] [place], [place] [address] [place] #### FRUC #### [facility] , Mean Corpuscular HGB Conc 32.1 g/dL Normal 32.0-35.0 [facility] Comment on above: Performed By: #### C BC, BMP #### [facility] [address] [place] [address] [place] #### FRUC #### [facility] , Monocytes (Bld) [#/Vol] 0.5 10*3/uL Normal 0.0-0.8 [facility] Comment on above: Performed By: #### C BC, BMP #### [place] [address] [place] #### FRUC #### [facility] , Monocytes/100 WBC (Bld) 7.6 % Normal . [facility] Comment on above: Performed By: #### C BC, BMP #### [facility] [address] [place] [address] [place] #### FRUC #### [facility] , Neutrophils (Bld) [#/Vol] 4.2 10*3/uL Normal 1.8-7.7 [facility] Comment on above: Performed By: #### C BC, BMP #### [place] [address] [place] #### FRUC #### [facility] , Neutrophils/100 WBC (Bld) 65.0 % Normal . [facility] Comment on above: Performed By: #### C BC, BMP #### [facility] [address] [place] [address] [place] #### FRUC #### [facility] , NRBC% 0.1 /100{WBC} Normal 0-0.5 [facility] Comment on above: Performed By: #### C BC, BMP #### [facility] [address] [place] [address] [place] #### FRUC #### [facility] , Platelet mean volume (Bld) [Entitic vol] 8.0 fL Normal 6.3-10.7 [facility] Comment on above: Performed By: #### C BC, BMP #### [facility] [address] [place] [address] [place] #### FRUC #### [facility] , Platelets (Bld) [#/Vol] 387 10*3/uL Normal 150-450 [facility] Comment on above: Performed By: #### C BC, BMP #### [place] [address] [place] #### FRUC #### [facility] , RBC (Bld) [#/Vol] 4.74 10*6/uL Normal 3.60-5.00 [facility] Comment on above: Performed By: #### C BC, BMP #### [facility] [address] [place] [address] [place] #### FRUC #### [facility] , WBC (Bld) [#/Vol] 6.4 10*3/uL Normal 3.8-11.6 [facility] Comment on above: Performed By: #### C BC, BMP #### [place] [address] [place] #### FRUC #### [facility] , Creatinine [Mass/volume] in Serum or PlasmaOrdered By: David Mcfarland on 08-28-2023 Creatinine [Mass/Vol] 0.96 mg/dL 0.60-1.20 [facility] Dipstick and Microscopicon 1 10-28-2022 Appearance (U) Clear Normal Clear [facility] Comment on above: Order Comment: Name Collection Type:: Clean-Voided Midstream Performed By: #### C BC, BMP #### [place] [address] [place] #### FRUC #### [facility] , Bacteria,Urine None Seen Normal None Seen [facility] Comment on above: Order Comment: Name Collection Type:: Clean-Voided Midstream Performed By: #### C BC, BMP #### [address] #### FRUC #### [facility] , Bilirubin,Urine Negative Normal Negative [facility] Comment on above: Order Comment: Name Collection Type:: Clean-Voided Midstream Performed By: #### C BC, BMP #### [address] #### FRUC #### [facility] , Color (U) Yellow Normal Yellow [facility] Comment on above: Order Comment: Name Collection Type:: Clean-Voided Midstream Performed By: #### C BC, BMP #### [address] #### FRUC #### [facility] , Glucose Ql (U) Normal Normal Normal [facility] Comment on above: Order Comment: Name Collection Type:: Clean-Voided Midstream Performed By: #### C BC, BMP #### [address] #### FRUC #### [facility] , Hyaline Casts,Urine 0-8 Normal 0-8 [facility] Comment on above: Order Comment: Name Collection Type:: Clean-Voided Midstream Result Comment: PERF ORMED BY: [place] [address] PATHOLOGIST [employer]ER SUAD ARREAGA M.D. Performed By: #### C BC, BMP #### [place] [address] [place] #### FRUC #### [facility] , Ketones Ql (U) Negative Normal Negative [facility] Comment on above: Order Comment: Name Collection Type:: Clean-Voided Midstream Performed By: #### C BC, BMP #### [address] [place] [address] [place] #### FRUC #### [facility] , Leukocyte esterase Test strip Ql (U) 3+ High Negative [facility] Comment on above: Order Comment: Name Collection Type:: Clean-Voided Midstream Performed By: #### C BC, BMP #### [address] #### FRUC #### [facility] , Nitrite,Urine Negative Normal Negative [facility] Comment on above: Order Comment: Name Collection Type:: Clean-Voided Midstream Performed By: #### C BC, BMP #### [address] #### FRUC #### [facility] , Occult Blood,Urine Negative Normal Negative [facility] Comment on above: Order Comment: Name Collection Type:: Clean-Voided Midstream Result Comment: PERF ORMED BY: [place] [address] PATHOLOGIST [employer]ER SUAD ARREAGA M.D. Performed By: #### C BC, BMP #### [address] #### FRUC #### [facility] , pH (U) 5.5 [pH] Normal 5.0-9.0 [facility] Comment on above: Order Comment: Name Collection Type:: Clean-Voided Midstream Performed By: #### C BC, BMP #### [address] #### FRUC #### [facility] , Protein,Urine Negative Normal Negative [facility] Comment on above: Order Comment: Name Collection Type:: Clean-Voided Midstream Performed By: #### C BC, BMP #### [place] [address] [place] #### FRUC #### [facility] , RBC,Urine 1-2 Normal 0-4 [facility] Comment on above: Order Comment: Name Collection Type:: Clean-Voided Midstream Performed By: #### C BC, BMP #### [facility] [address] [place] [address] [place] #### FRUC #### [facility] , Specificy Floral,Urine 1.020 Normal 1.001-1.03 0 [facility] Comment on above: Order Comment: Name Collection Type:: Clean-Voided Midstream Performed By: #### C BC, BMP #### [place] [address] [place] #### FRUC #### [facility] , Squamous Epithelial Cell,Urine 3-4 High 0-2 [facility] Comment on above: Order Comment: Name Collection Type:: Clean-Voided Midstream Performed By: #### C BC, BMP #### [place] [address] [place] #### FRUC #### [facility] , Urobilinogen,Urine Normal Normal Normal [facility] Comment on above: Order Comment: Name Collection Type:: Clean-Voided Midstream Performed By: #### C BC, BMP #### [facility] [address] [place] [address] [place] #### FRUC #### [facility] , WBC,Urine 10-19 High 0-4 [facility] Comment on above: Order Comment: Name Collection Type:: Clean-Voided Midstream Performed By: #### C BC, BMP #### [facility] [address] [place] [address] [place] #### FRUC #### [facility] , ECG 12 lead ECGon 08-28-2023 ECG 12 lead ECG [facility] [place] [address] [place] [address] Electrocardiograph Report Signed Patient: Nicol Smith MR#: [id number] 9 : 1960 Acct:[id number] Age/Sex: 63 / F ADM Date: 08/28/23 Loc: PS Room: Type: [facility] Attending Dr: David Mcfarland II, MD Ordering [...] previous ECGs available Confirmed by NAHID PINEDA [facility] ([id number][facility] on 08/28/2023 10:26:43 PM Referred By: BARTOLO Electronically Signed By:KAMARI MANN MD [facility] Transcribed By: MUS Signed By Jonathan Mann MD 08/28/232225 Normal [facility] Eosinophils Auto (Bld) [#/Vo l]Ordered By: David Mcfarland on 08-28-2023 Eosinophils (Bld) [#/Vol] 0.1 10*3/uL 0.0-0.45 [facility] Eosinophils/100 WBC Auto (Bl d)Ordered By: David Mcfarland on 08-28-2023 Eosinophils/100 WBC (Bld) 1.0 % . [facility] Erythrocyte distribution wid th Auto (RBC) [Ratio]Ordered By: David Mcfarland on 08-28-2023 Erythrocyte distribution width (RBC) [Ratio] 17.5 % 11.9-15.3 [facility] Fructosamineon 08-28-2023 Fructosamine 205 umol/L Normal 0-285 [facility] Comment on above: Result Comment: Publ ished reference interval for apparently healthy subjects between age 20 and 60 is 205 - 285 umol/L and in a poorly controlled diabetic population is 228 - 563 umol/L with a mean of 396 umol/L. Performed at: [address] [id number] Director Operating: Luis Mukherjee PhD, Phone: [phone] PERFORMED BY: [place] [address] PATHOLOGIST [employer] MANUFACTURER SUAD ARREAGA M.D. Performed By: #### C BC, BMP #### [address] #### FRUC #### [facility] , Fructosamine [Moles/volume] in Serum or PlasmaOrdered By: David Mcfarland on 08-28-2023 Fructosamine [Moles/Vol] 205 umol/L 0-285 [facility] Comment on above: Published reference interval for apparently healthysubjects between age 20 and 60 is 205 - 285 umol/L and in apoorly controlled diabetic population is 228 - 563 umol/Lwith a mean of 396 umol/L.Performed at: [facility] [address] Director: Luis Mukherjee PhD, Phone: [phone] Glucose [Mass/volume] in Ser um or PlasmaOrdered By: David Mcfarland on 08-28-2023 Glucose [Mass/Vol] 98 mg/dL 70-100 [facility] Comment on above: ADA recommended refe rence rangeRandom Glucose Reference Range is dependent on time and content of last meal. Glucose of more than 200 mg/dL in a nonstressed, ambulatory subject supports the diagnosis of Diabetes Mellitus. Hematocrit Auto (Bld) [Volum e fraction]Ordered By: David Mcfarland on 08-28-2023 Hematocrit (Bld) [Volume fraction] 36.9 % 34.0-46.4 [facility] Hemoglobin [Mass/volume] in BloodOrdered By: David Mcfarland on 08-28-2023 Hemoglobin (Bld) [Mass/Vol] 11.9 g/dL 11.8-15.4 [facility] Ketones Auto test strip (U) [Mass/Vol]Ordered By: David Mcfarland on 08-28-2023 Ketones (U) [Mass/Vol] Negative Negative [facility] Laboratory - UrinalysisOrder ed By: David Mcfarland on 08-28-2023 Hyaline casts LM Ql (Urine sed) 0-8 [LPF] 0-8 [facility] Leukocytes [#/volume] correc janell for nucleated erythrocytes in Blood by Automated counOrdered By: David Mcfarland on 08-28-2023 WBC corrected for nucl RBC Auto (Bld) [#/Vol] 6.4 10*3/uL 3.8-11.6 [facility] Lymphocytes Auto (Bld) [#/Vo l]Ordered By: David Mcfarland on 08-28-2023 Lymphocytes (Bld) [#/Vol] 1.6 10*3/uL 1.00-4.8 [facility] Lymphocytes/100 WBC Auto (Bl d)Ordered By: David Mcfarland on 08-28-2023 Lymphocytes/100 WBC (Bld) 25.3 % . [facility] MCH Auto (RBC) [Entitic mass ]Ordered By: David Mcfarland on 08-28-2023 MCH (RBC) [Entitic mass] 25.0 pg 24.7-34.3 [facility] MCHC Auto (RBC) [Mass/Vol]Or dered By: David Mcfarland on 08-28-2023 MCHC (RBC) [Mass/Vol] 32.1 g/dL 32.0-35.0 [facility] MCV Auto (RBC) [Entitic vol] Ordered By: David Mcfarland on 08-28-2023 MCV (RBC) [Entitic vol] 78.0 fL 80-100 [facility] Monocytes Auto (Bld) [#/Vol] Ordered By: David Mcfarland on 08-28-2023 Monocytes (Bld) [#/Vol] 0.5 10*3/uL 0.0-0.8 [facility] Monocytes/100 WBC Auto (Bld) Ordered By: David Mcfarland on 08-28-2023 Monocytes/100 WBC (Bld) 7.6 % . [facility] Neutrophils Auto (Bld) [#/Vo l]Ordered By: David Mcfarland on 08-28-2023 Neutrophils (Bld) [#/Vol] 4.2 10*3/uL 1.8-7.7 [facility] Neutrophils/100 WBC Auto (Bl d)Ordered By: David Mcfarland on 08-28-2023 Neutrophils/100 WBC (Bld) 65.0 % . [facility] Nitrite Test strip Ql (U)Ord ered By: David Mcfarland on 08-28-2023 Nitrite Ql (U) Negative Negative [facility] No Panel InformationOrdered By: David Mcfarland on 08-28-2023 Estimated GFR (CKD-EPI) > 60.0 mL/Min [facility] Creatinine Clearance (Chem N/A [facility] Nucleated erythrocytes [Pres ence] in Blood by Automated countOrdered By: David Mcfarland on 08-28-2023 Nucleated RBC Auto Ql (Bld) 0.1 /100{WBC} 0-0.5 [facility] PST Type and Screenon 2022 ABO and Rh group Nom (Bld) Blood group B Rh(D) positive Normal [facility] Comment on above: Order Comment: Date of Surgery: [id number] Platelet mean volume Auto (B ld) [Entitic vol]Ordered By: David Mcfarland on 08-28-2023 Platelet mean volume (Bld) [Entitic vol] 8.0 fL 6.3-10.7 [facility] Platelets Auto (Bld) [#/Vol] Ordered By: David Mcfarland on 08-28-2023 Platelets (Bld) [#/Vol] 387 10*3/uL 150-450 [facility] Potassium [Moles/volume] in Serum or PlasmaOrdered By: David Mcfarland on 08-28-2023 Potassium [Moles/Vol] 4.2 mmol/L 3.5-5.1 [facility] Protein Auto test strip (U) [Mass/Vol]Ordered By: David Mcfarland on 08-28-2023 Protein (U) [Mass/Vol] Negative Negative [facility] RBC Auto (Bld) [#/Vol]Ordere d By: David Mcfarland on 08-28-2023 RBC (Bld) [#/Vol] 4.74 10*6/uL 3.60-5.00 [facility] Serum or plasma anion gap de terminationOrdered By: David Mcfarland on 08-28-2023 Anion gap [Moles/Vol] 11.1 mmol/L 6.0-15.0 [facility] Sodium [Moles/volume] in Ser um or PlasmaOrdered By: David Mcfarland on 08-28-2023 Sodium [Moles/Vol] 140 mmol/L 136-145 [facility] Specific gravity Auto test s trip (U) [Rel density]Ordered By: David Mcfarland on 08-28-2023 Specific gravity (U) [Rel density] 1.020 1.001-1.03 0 [facility] Squamous epithelial cells de tection in urine sediment by light microscopyOrdered By: David Mcfarland on 08-28-2023 Epithelial cells.squamous LM Ql (Urine sed) 3-4 [HPF] 0-2 [facility] Urea nitrogen [Mass/volume] in Serum or PlasmaOrdered By: David Mcfarland on 08-28-2023 Urea nitrogen [Mass/Vol] 17 mg/dL 7-25 [facility] Urine Cultureon 08-28-2023 Bacteria identified Cx Nom (U) 50,000 colonies/ml mixed bacterial skin contaminants 2 Days PERFORMED BY: [place] [address] PATHOLOGIST [employer]URER SUAD ARREAGA M.D. [facility] Comment on above: Performed By: #### C BC, BMP #### [place] [address] [place] #### FRUC #### [facility] , Urine bacteria detection by automated methodOrdered By: David Mcfarland on 08-28-2023 Bacteria Auto Ql (U) None seen None Seen [facility] Urine clarity by refractomet ry automatedOrdered By: David Mcfarland on 08-28-2023 Clarity Refractometry automated (U) Clear Clear [facility] Urine culture routineOrdered By: David Mcfarland on 08-28-2023 Bacteria identified Cx Nom (U) 2 Days [facility] Urine glucose measurement by automated test strip (mass/volume)Ordered By: David Mcfarland on 08-28-2023 Glucose Auto test strip (U) [Mass/Vol] Normal mg/dL Normal [facility] Urine hemoglobin detection b y automated test stripOrdered By: David Mcfarland on 08-28-2023 Hemoglobin Auto test strip Ql (U) Negative Negative [facility] Urine leukocyte esterase det ection by automated test stripOrdered By: David Mcfarland on 08-28-2023 Leukocyte esterase Auto test strip Ql (U) 3+ Negative [facility] Urobilinogen Auto test strip (U) [Mass/Vol]Ordered By: David Mcfarland on 08-28-2023 Urobilinogen (U) [Mass/Vol] Normal mg/dL Normal [facility] WBC Auto (Bld) [#/Vol]Ordere d By: David Mcfarland on 08-28-2023 WBC (Bld) [#/Vol] 6.4 10*3/uL 3.8-11.6 [facility] pH Auto test strip (U)Ordere d By: David Mcfarland on 08-28-2023 pH (U) 5.5 [pH] 5.0-9.0 [facility] XR hip RT min 2V(w/wo pelvis )*on 08-15-2023 XR hip RT min 2V(w/wo pelvis)* [facility] [place] [address] XRay Report Signed Patient: Nicol Smith MR#: [id number] 9 : 1960 Acct:[id number] Age/Sex: 63 / F ADM Date: 08/15/23 Loc: [facility] Room: Type: [facility] Attending Dr: David Mcfarland II, MD Copies [...] Matamoros Jr., D.O.08/15/2023 4:18 PM Dictation Location: [place] [address] Transcribed By: [facility] 08/15/231617 Dictated By: Stalin Matamoros Jr, DO 08/15/231616 Signed By: 08/15/231617 [facility] Office Visiton 07-16-2023 Follow-up visit [id number] Nicol Smith 1960 F Date Provider Department Center 07/16/2023 Cristina-MARJORIE, KIMBERLY [facility] Family History Problem Relation Age of Onset Diabetes Father Heart failure Father Diabetes Paternal Grandmother Diabetes Paternal Grandfather Family Status - Relation Status Age at Father Paternal Grandmother Paternal Grandfather Level of Service:[address] [place] OFFICE/OUTPATIENT ESTABLISHED MOD MDM 30-39 MIN Normal [facility] TSHon 01-19-2023 TSH 5.502 uIU/mL Critically high 0.358-3.74 0 [facility] Comment on above: Performed By: #### T SH ####[facility] [address] [place] [address]Dr. Darrick Nash GTT 2 HRon 12-12-2022 Glucose [Mass/Vol] 117 mg/dL Critically high 74-106 T [facility] Comment on above: Performed By: #### G TT2 ####[facility] [address] [place] [address]Dr. Adryyakov Cao Glucose [Mass/Vol] 227 mg/dL Normal [facility] Comment on above: Performed By: #### G TT2 ####[facility] [address] [place] [address]Dr. Darrick Cao Glucose [Mass/Vol] 121 mg/dL Normal [facility] Comment on above: Performed By: #### G TT2 ####[facility] [address] [place] [address]Dr. Darrick Cao TSHon 12-12-2022 TSH 6.852 uIU/mL Critically high 0.358-3.74 0 [facility] Comment on above: Performed By: #### P OCGLUC #### [facility] [address] [place] [address] [address] Darrick Cao Outside Colonoscopyon 2022 Outside Colonoscopy [id number]#[id number]:127 [facility] Reminderson 12-07-2022 Reminders - From: Yu Waters LPN To: N - Clinical; Sent: 12/07/2022 08:47:38 EST Show up: 11/08/2032 07:00:00 EST Subject: colonoscopy recall Due Date/Time: 12/06/2032 07:00:00 EST Reminder/Recall Patient is due for screening colonoscopy 12/06/2032. [facility] Consent for Procedure/Surger yon 11-09-2022 Consent for Procedure/Surgery [id number]#1.00CD:127 [facility] Consent for Procedure/Surgery [id number]#[id number]:127 [facility] Facesheeton 11-09-2022 Facesheet [id number]#1.00CD:127 [facility] Ambulatory Visit Summaryon 0 11-08-2022 Ambulatory Visit Summary NICOL SMITH Ilda :1960 Visit Date:11/08/2022 Ambulatory Visit Instructions Your [...] Screening for malignant neoplasm of colon Normal [facility] MG MAMM SCREEN 3D BONNIE CADon 11-03-2022 MG MAMM SCREEN 3D BONNIE CAD Patient: NICOL SMITH Exam Date: 11/03/2022 : 1960 Gender:F Ordering : DR FRIEDA LOCKE . Admission #: [id number] Family : Order #: [id number] CLICK HERE TO VIEW EXAM RADIOLOGY REPORT [...] uterine cancer at age 52. LOCATION: [facility] BREAST COMPOSITION: Scattered areas fibroglandular density. FINDINGS: [...] Kelly MD on 11/03/2022 at 11:04 Normal [facility] XR DEXA BONE DENSITYon 11-03 [...] by: ARIELA SCHWAB Date: 2022-11-03 11:11 Normal [facility] Comprehensive Metabolic Pane yuli 10-30-2022 Urea nitrogen [Mass/Vol] 20 mg/dL [employer] Other Comprehensive Metabolic Panel [employer] Other Comprehensive Metabolic Panel >60 [employer] [facility] [employer] Other Comprehensive Metabolic Panel 4.2 [employer] [facility] [employer] Other Albumin [Mass/Vol] 3.7 g/dL Normal 3.4-5.0 [employer] [facility] Other Comment on above: Performed By: #### T SH, CMP, LIPID ####[facility] [address] [place] [address]Dr. Darrick Cao Albumin/Globulin [Mass ratio] 0.9 {ratio} Normal [facility] [employer] Other Comment on above: Performed By: #### T SH, CMP, LIPID ####[facility] [address] [place], [place] [address]Dr. Darrick Cao ALP [Catalytic activity/Vol] 112 U/L Normal 46-116 [facility] [employer] Other Comment on above: Performed By: #### T SH, CMP, LIPID ####[facility] [address] [place], [place] [address]Dr. Darrick Cao ALT [Catalytic activity/Vol] 34 U/L Normal 14-59 [employer] [facility] [employer] Other Comment on above: Performed By: #### T SH, CMP, LIPID ####[facility] [address] [place] [address]Dr. Darrick Cao AST [Catalytic activity/Vol] 17 U/L Normal 15-37 [facility] [employer] Other Comment on above: Performed By: #### T SH, CMP, LIPID ####[facility] [address] [place], [place] [address]Dr. Darrick Cao Bilirubin [Mass/Vol] 0.4 mg/dL Normal 0.2-1.0 [facility] [employer] Other Comment on above: Performed By: #### T SH, CMP, LIPID ####[facility] [address] [place], [place] [address]Dr. Darrick Cao Calcium [Mass/Vol] 9.2 mg/dL Normal 8.5-10.1 [facility] [employer] Other Comment on above: Performed By: #### T SH, CMP, LIPID ####[facility] [address] [place] [address]Dr. Darrick Cao Chloride [Moles/Vol] 105 mmol/L Normal 98-107 [facility] [employer] Other Comment on above: Performed By: #### T SH, CMP, LIPID ####[facility] [address] [place] [address]Dr. Darrick Cao CO2 [Moles/Vol] 27.0 mmol/L Normal 21.0-32.0 [facility] [employer] Other Comment on above: Performed By: #### T SH, CMP, LIPID ####[facility] [address] [place] [address]Dr. Darrick Cao Creatinine [Mass/Vol] 0.86 mg/dL Normal 0.55-1.02 [facility] [employer] Other Comment on above: Performed By: #### T SH, CMP, LIPID ####[facility] [address] [place] [address]Dr. Darrick Cao Glucose [Mass/Vol] 114 mg/dL Critically high 74-106 [facility] [employer] Other Comment on above: Performed By: #### T SH, CMP, LIPID ####[facility] [address] [place] [address]Dr. Darrick Cao Potassium [Moles/Vol] 3.9 mmol/L Normal 3.5-5.1 [facility] [employer] Other Comment on above: Performed By: #### T SH, CMP, LIPID ####[facility] [address] [place] [address]Dr. Darrick Cao Protein [Mass/Vol] 7.9 g/dL Normal 6.4-8.2 [facility] [employer] Other Comment on above: Performed By: #### T SH, CMP, LIPID ####[facility] [address] [place], [place] [address]Zs. Darrick Cao Sodium [Moles/Vol] 143 mmol/L Normal 136-145 [employer] Other Comment on above: Performed By: #### T SH, CMP, LIPID ####[facility] [address] [place], [place] [address]Vo. Darrick Cao FREE T4on 10-30-2022 Free T4 [Mass/Vol] 0.77 ng/dL Normal 0.76-1.46 [facility] Comment on above: Performed By: #### F T4 ####[facility] [address] [place] [address]Dr. Darrick Cao LIPID PROFILEon 10-30-2022 CHOL-HDL RATIO NORM SEE BELOW Normal [facility] Comment on above: Result Comment: 3.3 - 4.4 LOW RISK 4.4 - 7.1 AVERAGE RISK 7.1 - 11.0 MODERATE RISK >11.0 HIGH RISK Performed By: #### T SH, CMP, LIPID ####[facility] [address] [place], [place] [address]Qo. Darrick Cao Cholesterol in LDL [Mass/Vol] 84.6 mg/dL Normal [facility] Comment on above: Performed By: #### T SH, CMP, LIPID ####[facility] [address] [place], [place] [address]Ih. Darrick Cao HDL NORMAL > or = 60 mg/dl - LO W CARDIOVASCULAR RISK <40 mg/dl - HIGH CARDIOVASCULAR RISK Normal [facility] Comment on above: Performed By: #### T SH, CMP, LIPID ####[facility] [address] [place], [place] [address]Ea. Darrick Cao LDL CALC NORMAL SEE BELOW Normal [facility] Comment on above: Result Comment: <100 mg/dl OPTIMAL 100 - 129 mg/dl NEAR OR ABOVE OPTIMAL 130 - 159 mg/dl BORDERLINE HIGH 160 - 189 mg/dl HIGH >190 mg/dl VERY HIGH Performed By: #### T SH, CMP, LIPID ####[facility] [address] [place], [place] [address]Lm. Darrick Cao Triglyceride [Mass/Vol] 222 mg/dL Critically high <=150 [facility] Comment on above: Performed By: #### T SH, CMP, LIPID ####[facility] [address] [place], [place] [address]Kw. Darrick Cao VLDL CALC 44.4 mg/dL Normal [facility] Comment on above: Performed By: #### T SH, CMP, LIPID ####[facility] [address] [place], [place] [address]Th. Darrick Cao Lipid Panelon 10-30-2022 Cholesterol in LDL Elph Qn 84.6 [employer] Other Lipid Panel 222 [employer] Other Lipid Panel 44.4 [employer] Other Cholesterol [Mass/Vol] 185 mg/dL Normal <=200 [employer] [facility] Other Comment on above: Performed By: #### T SH, CMP, LIPID ####[facility] [address] [place], [place] [address]Ko. Darrick Cao Cholesterol in HDL [Mass/Vol] 56 mg/dL Normal 40-60 [employer] Other Comment on above: Performed By: #### T SH, CMP, LIPID ####[facility] [address] [place], [place] [address]Bu. Darrick Cao Cholesterol.total/Cho lesterol in HDL [Mass ratio] 3.3 {ratio} Normal [employer] Other Comment on above: Performed By: #### T SH, CMP, LIPID ####[facility] [address] [place], [place] [address]Kx. Darrick Cao PROF 14(COMP METB)on 023 Anion gap [Moles/Vol] 14.9 mmol/L Normal [facility] Comment on above: Performed By: #### T SH, CMP, LIPID ####[facility] [address] [place] [address]Dr. Darrick Cao EGFR-AF MALDIVIAN >60 Normal >=60 [facility] Comment on above: Performed By: #### T JASON CMP, LIPID ####[facility] [address] [place] [address]Dr. Darrick Cao EGFR-NON AF MALDIVIAN >60 Normal >=60 [facility] Comment on above: Performed By: #### T JASON CMP, LIPID ####[facility] [address] [place] [address]Dr. Darrick Cao Globulin (S) [Mass/Vol] 4.2 g/dL Normal [facility] Comment on above: Performed By: #### T JASON CMP, LIPID ####[facility] [address] [place] [address]Dr. Darrick Cao Urea nitrogen [Mass/Vol] 20.0 mg/dL Critically high 7.0-18.0 [facility] Comment on above: Performed By: #### T JASON CMP, LIPID ####[facility] [address] [place], [place] [address]Dr. Darrick Cao Urea nitrogen/Creatinine [Mass ratio] 23.3 mg/mg Normal [facility] Comment on above: Performed By: #### T JASON CMP, LIPID ####[facility] [address] [place] [address]Dr. Darrick Cao TSHon 10-30-2022 TSH 6.415 uIU/mL Critically high 0.358-3.74 0 [facility] Comment on above: Performed By: #### T JASON, CMP, LIPID ####[facility] [address] [place] [address]Dr. Darrick Cao Thyroid Stim Hormone w/Rflxo n 10-30-2022 Thyroid Stim Hormone w/Rflx 6.415 [employer] Other VITAMIN B12on 10-30-2022 Cobalamin (Vitamin B12) [Mass/Vol] 664.0 pg/mL Normal 193.0-986. 0 [facility] Comment on above: Performed By: #### V ITB12 #### [facility] [address] [address] [address] Darrick Cao Vitamin B12on 10-30-2022 Cobalamin (Vitamin B12) [Mass/Vol] 664 pg/mL [employer] Other Automated erythrocytes count in urine sediment (number/area)Ordered By: Waqas Pierce on 10-23-2022 RBC Auto (Urine sed) [#/Area] 0-1 [HPF] 0-4 [facility] Automated leukocytes count i n urine sediment (number/area)Ordered By: Waqas Pierce on 10-23-2022 WBC Auto (Urine sed) [#/Area] 10-19 [HPF] 0-4 [facility] Automated urine color determ inationOrdered By: Waqas Pierce on 10-23-2022 Color (U) Yellow Normal Yellow [facility] Comment on above: Order Comment: Name Collection Type:: Collection Method Unknown Performed By: #### C UU, ADDONUAPLUS #### [facility] [address] Bilirubin Test strip Ql (U)O rdered By: Waqas Pierce on 10-23-2022 Bilirubin Ql (U) Negative Negative [facility] Dipstick and Microscopicon 0 10-23-2022 Appearance (U) Clear Normal Clear [facility] Comment on above: Order Comment: Name Collection Type:: Collection Method Unknown Performed By: #### C UU, ADDONUAPLUS #### [facility] [address] [place] [address] [place] Bacteria,Urine None Seen Normal None Seen [facility] Comment on above: Order Comment: Name Collection Type:: Collection Method Unknown Performed By: #### C UU, ADDONUAPLUS #### [facility] [address] [place] [address] [place] Bilirubin,Urine Negative Normal Negative [facility] Comment on above: Order Comment: Name Collection Type:: Collection Method Unknown Performed By: #### C UU, ADDONUAPLUS #### [facility] [address] [place] [address] [place] Glucose Ql (U) Normal Normal Normal [facility] Comment on above: Order Comment: Name Collection Type:: Collection Method Unknown Performed By: #### C UU, ADDONUAPLUS #### [place] [address] [place] Hyaline Casts,Urine 0-8 Normal 0-8 [facility] Comment on above: Order Comment: Name Collection Type:: Collection Method Unknown Result Comment: PERF ORMED BY: [place] [address] PATHOLOGIST [employer]ER SUAD ARREAGA M.D. Performed By: #### C UU, ADDONUAPLUS #### [address] Ketones Ql (U) Negative Normal Negative [facility] Comment on above: Order Comment: Name Collection Type:: Collection Method Unknown Performed By: #### C UU, ADDONUAPLUS #### [address] Leukocyte esterase Test strip Ql (U) 3+ High Negative [facility] Comment on above: Order Comment: Name Collection Type:: Collection Method Unknown Performed By: #### C UU, ADDONUAPLUS #### [place] [address] [place] Nitrite,Urine Negative Normal Negative [facility] Comment on above: Order Comment: Name Collection Type:: Collection Method Unknown Performed By: #### C UU, ADDONUAPLUS #### [place] [address] [place] Occult Blood,Urine Negative Normal Negative [facility] Comment on above: Order Comment: Name Collection Type:: Collection Method Unknown Result Comment: PERF ORMED BY: [place] [address] PATHOLOGIST [employer] MANUFA[employer]ER SUAD ARREAGA M.D. Performed By: #### C UU, ADDONUAPLUS #### [address] Protein,Urine Negative Normal Negative [facility] Comment on above: Order Comment: Name Collection Type:: Collection Method Unknown Performed By: #### C UU, ADDONUAPLUS #### [facility] [address] [place] [address] RBC LM.HPF (Urine sed) [#/Area] 0 /[HPF] Normal 0-4 [facility] Comment on above: Order Comment: Name Collection Type:: Collection Method Unknown Performed By: #### C UU, ADDONUAPLUS #### [facility] [address] [place] [address] Specificy Floral,Urine 1.016 Normal 1.001-1.03 0 [facility] Comment on above: Order Comment: Name Collection Type:: Collection Method Unknown Performed By: #### C UU, ADDONUAPLUS #### [address] Squamous Epithelial Cell,Urine 5-9 High 0-2 [facility] Comment on above: Order Comment: Name Collection Type:: Collection Method Unknown Performed By: #### C UU, ADDONUAPLUS #### [address] Urobilinogen,Urine Normal Normal Normal [facility] Comment on above: Order Comment: Name Collection Type:: Collection Method Unknown Performed By: #### C UU, ADDONUAPLUS #### [address] WBC,Urine 10-19 High 0-4 [facility] Comment on above: Order Comment: Name Collection Type:: Collection Method Unknown Performed By: #### C UU, ADDONUAPLUS #### [address] Ketones Auto test strip (U) [Mass/Vol]Ordered By: Waqas Pierce on 10-23-2022 Ketones (U) [Mass/Vol] Negative Negative [facility] - UrinalysisOrder ed By: Waqas Pierce on 10-23-2022 Hyaline casts LM Ql (Urine sed) 0-8 [LPF] 0-8 [facility] Nitrite Test strip Ql (U)Ord ered By: Waqas Pierce on 10-23-2022 Nitrite Ql (U) Negative Negative [facility] Protein Auto test strip (U) [Mass/Vol]Ordered By: Waqas Pierce on 10-23-2022 Protein (U) [Mass/Vol] Negative Negative [facility] Specific gravity Auto test s trip (U) [Rel density]Ordered By: Waqas Pierce on 10-23-2022 Specific gravity (U) [Rel density] 1.016 1.001-1.03 0 [facility] Squamous epithelial cells de tection in urine sediment by light microscopyOrdered By: Waqas Pierce on 10-23-2022 Epithelial cells.squamous LM Ql (Urine sed) 5-9 [HPF] 0-2 [facility] Urine Cultureon 10-23-2022 Bacteria identified Cx Nom (U) >100,000 colonies/ml mixed bacterial skin contaminants 2 Days PERFORMED BY: [place] [address] PATHOLOGIST [employer]ER SUAD ARREAGA M.D. Normal [facility] Comment on above: Performed By: #### C UU, ADDONUAPLUS #### [address] Bacteria identified Cx Nom (U) [employer] Other Urine bacteria detection by automated methodOrdered By: Waqas Pierce on 10-23-2022 Bacteria Auto Ql (U) None seen None Seen [facility] Urine clarity by refractomet ry automatedOrdered By: Waqas Pierce on 10-23-2022 Clarity Refractometry automated (U) Clear Clear [facility] Urine glucose measurement by automated test strip (mass/volume)Ordered By: Waqas Pierce on 10-23-2022 Glucose Auto test strip (U) [Mass/Vol] Normal mg/dL Normal [facility] Urine hemoglobin detection b y automated test stripOrdered By: Waqas Pierce on 10-23-2022 Hemoglobin Auto test strip Ql (U) Negative Negative [facility] Urine leukocyte esterase det ection by automated test stripOrdered By: Waqas Pierce on 10-23-2022 Leukocyte esterase Auto test strip Ql (U) 3+ Negative [facility] Urine pH measurement by auto mated test stripOrdered By: Waqas Pierce on 10-23-2022 pH (U) 6.0 [pH] Normal 5.0-9.0 [facility] Comment on above: Order Comment: Name Collection Type:: Collection Method Unknown Performed By: #### C FE DAVID #### [facility] [address] [place] [id number] [facility] Urobilinogen Auto test strip (U) [Mass/Vol]Ordered By: Waqas Pierce on 10-23-2022 Urobilinogen (U) [Mass/Vol] Normal mg/dL Normal [facility] A1C HEMOGLOBINon 10-13-2022 HbA1c (Bld) [Mass fraction] 5.9 % [employer] Other HbA1c (Bld) [Mass fraction]o n 10-13-2022 A1C HEMOGLOBIN [facility] [employer] Other XR FOOT LT MIN 3 VIEWSon [...] by: ALEX RYAN Date: 2022-09-20 16:40 Normal [facility] Office Visiton 09-06-2022 Follow-up visit [id number] Nicol Smith 1960 F Date Provider Department Center 09/06/2022 KIMBERLY BAKER [facility] Family History Problem Relation Age of Onset Diabetes Father Heart failure Father Diabetes Paternal Grandmother Diabetes Paternal Grandfather Family Status - Relation Status Age at Father Paternal Grandmother Paternal Grandfather Level of Service:[address] [place] OFFICE/OUTPATIENT ESTABLISHED LOW MDM 20-29 MIN Normal [facility] XR LSPINE 2_3 VIEWSon 2021 XR LSPINE 2_3 VIEWS EXAMINATION: XR LSPI NE 2_3 VIEWS HISTORY: Low back pain COMPARISON: 09/26/2019 FINDINGS: BONES: Mild dextrocurvature. Moderate to severe spondylosis and facet osteoarthropathy DISC SPACES: Multilevel disc space narrowing most significant at L5-S1 PARASPINOUS: Negative. No paraspinous abnormality is seen. OTHER: Severe right hip osteoarthropathy with uqmc-hk-epuj articulation. Left hip arthroplasty IMPRESSION: Moderate to severe degenerative changes Electronically authenticated by: SHAWNEE KELLY Date: 2022-08-20 11:47 Normal [facility] PAP ACOG PANEL 2: 30 to 65on 06-13-2022 . . Normal [facility] Comment on above: Result Comment: Perf ormed at: WB Performed By: #### [id number] ####[facility] [address] [place], [place] [address]DrMiguel Cao Age Gdln ACOG Testing 30-65 Normal [facility] Comment on above: Performed By: #### 4 [id number] ####[facility] [address] [place] [address]DrMiguel Cao DIAGNOSIS: Comment Normal [facility] Comment on above: Result Comment: NEGA TIVE FOR INTRAEPITHELIAL LESION OR MALIGNANCY. THIS SPECIMEN WAS RESCREENED PART OF OUR SAFETY AND HEALTH MANAGER PROGRAM. Performed at: WB Performed By: #### 4 [id number] ####[facility] [address] [place], [place] [address]DrMiguel Cao HPV Aptima Negative Normal Negative [facility] Comment on above: Result Comment: This nucleic acid amplification test detects fourteen high-risk HPV types (16,18,31,33,35,39,45,51,52,56,58,59,66,68) without differentiation. Performed at: =G Performed By: #### 4 [id number] ####[facility] [address] [place] [address]DrMiguel Cao Methodology: Comment Normal [facility] Comment on above: Result Comment: This liquid based ThinPrep(R) pap test was screened with the use of an image guided system. Performed at: WB Performed By: #### 4 [id number] ####[facility] [address] [place] [address]Dr. Darrick Cao Note: Comment Normal [facility] Comment on above: Result Comment: The Pap smear is a screening test designed to aid in the detection of premalignant and malignant conditions of the uterine cervix. It is not a diagnostic procedure and should not be used as the sole means of detecting cervical cancer. Both false-positive and false-negative reports do occur. . Performed at: WB Performed By: #### 4 [id number] ####[facility] [address] [place] [address]Dr. Darrick Cao Performed by: Comment Normal [facility] Comment on above: Result Comment: Solange Ann, Cardiac Specialist (ASCP) Performed at: WB Performed By: #### 4 [id number] ####[facility] [address] [place], [place] [address]Dr. Darrick Cao QC reviewed by: Comment Normal [facility] Comment on above: Result Comment: Navi Rush, Supervisory Cardiac Specialist (ASCP) Performed at: WB Performed By: #### 4 [id number] ####[facility] [address] [place], [place] [address]Dr. Darrick Cao Specimen adequacy: Comment Normal [facility] Comment on above: Result Comment: Sati sfactory for evaluation. Endocervical and/or squamous metaplastic cells (endocervical component) are present. Performed at: WB Performed By: #### 4 [id number] ####[facility] [address] [place] [address]Dr. Darrick Cao US PELVIS AND TRANSVAGon US [...] ARIELA SCHWAB Date: 2022-06-13 14:50 Normal [facility] ACID FAST SMEAR AND CXon Acid Fast Culture Negative Normal [facility] Comment on above: Result Comment: No a liliya fast bacilli isolated after 6 weeks. Performed By: #### A FB ####[facility] [address] [place], [place] [address]Dr. Darrick Cao Acid Fast Smear Negative Normal The [facility] Comment on above: Performed By: #### A FB ####[facility] [address] [place], [place] [address]Dr. Darrick Cao [employer] Specimen Processing Tissue Grinding Normal [facility] Comment on above: Performed By: #### A FB ####[facility] [address] [place], [place] [address]Dr. Darrick Cao FUNGAL CULTUREon 05-23-2022 Fungus (Mycology) Culture Final report Normal [facility] Comment on above: Performed By: #### C XFUN ####[facility] [address] [place], [place] [address]Dr. Darrick Cao Fungus Stain Final report Normal [facility] Comment on above: Performed By: #### C XFUN ####[facility] [address] [place], [place] [address]Dr. Darrick Cao Result 1 Comment Normal [facility] Comment on above: Result Comment: MAYE/ Calcofluor preparation: no fungus observed. Performed By: #### C XFUN ####[facility] [address] [place], [place] [address]Dr. Darrick Cao Result Comment: No y east or mold isolated after 4 weeks. WOUND CULTUREon 04-28-2022 Bacteria identified Aer cx Nom (Unsp spec) Final report Normal [facility] Comment on above: Performed By: #### C XWND #### [facility] [address] [place] [address] Dr. Darrick Cao Result 1 Comment Normal [facility] Comment on above: Result Comment: No g rowth in 36 - 48 hours. Performed By: #### C XWND #### [facility] [address] [place] [address] Dr. Darrick Cao CULTURE WOUNDon 04-26-2022 CULTURE [...] S F Vancomycin 1 S F Normal [facility] Comment on above: Performed By: #### W OUNDCX ####[facility] [address] [place] [address]Dr. Darrick Cao CBC AUTO DIFFon 04-25-2022 BASO # 0.0 103/ul Normal 0.0-0.1 [facility] Comment on above: Performed By: #### C XWND #### [facility] [address] [place] [address] Dr. Darrick Cao Basophils/100 WBC (Bld) 0.5 % Normal 0.2-2.0 [facility] Comment on above: Performed By: #### C XWND #### [facility] [address] [place] [address] Dr. Darrick Cao EO # 0.1 103/ul Normal 0.0-0.7 [facility] Comment on above: Performed By: #### C XWND #### [facility] [address] [place] [address] Dr. Darrick Cao Eosinophils/100 WBC (Bld) 1.1 % Normal 0.9-7.0 [facility] Comment on above: Performed By: #### C XWND #### [facility] [address] [place] [address] Dr. Darrick Cao Erythrocyte distribution width (RBC) [Ratio] 15.8 % Critically high 11.0-15.0 [facility] Comment on above: Performed By: #### C XWND #### [facility] [address] [place] [address] Dr. Darrick Cao Hematocrit (Bld) [Volume fraction] 31.7 % Critically low 36.0-48.0 [facility] Comment on above: Performed By: #### C XWND #### [facility] [address] [place] [address] Dr. Darrick Cao Hemoglobin (Bld) [Mass/Vol] 10.1 g/dL Critically low 12.0-16.0 [facility] Comment on above: Performed By: #### C XWND #### [facility] [address] [place] [address] Dr. Darrick Cao IG # 0.02 10e3/ul Normal 0.00-0.03 [facility] Comment on above: Performed By: #### C XWND #### [facility] [address] [place] [address] Dr. Darrick Cao IG % 0.3 % Normal 0.0-0.5 [facility] Comment on above: Performed By: #### C XWND #### [facility] [address] [place] [address] Dr. Darrick Cao LYMPH # 1.8 103/ul Normal 1.2-3.8 [facility] Comment on above: Performed By: #### C XWND #### [facility] [address] [place] [address] Dr. Darrick Cao Lymphocytes/100 WBC (Bld) 24.3 % Normal 20.5-60.0 [facility] Comment on above: Performed By: #### C XWND #### [facility] [address] [place] [address] Dr. Darrick Cao MANUAL DIFF REQ NO Normal [facility] Comment on above: Performed By: #### C XWND #### [facility] [address] [place] [address] Dr. Darrick Cao MCH (RBC) [Entitic mass] 28.0 pg Normal 26.7-34.0 [facility] Comment on above: Performed By: #### C XWND #### [facility] [address] [place] [address] Dr. Darrick Cao MCHC (RBC) [Mass/Vol] 31.9 g/dL Normal 29.9-35.2 [facility] Comment on above: Performed By: #### C XWND #### [facility] [address] [place] [address] Dr. Darrick Cao MCV (RBC) [Entitic vol] 87.8 fL Normal 81.0-99.0 [facility] Comment on above: Performed By: #### C XWND #### [facility] [address] [place] [address] Dr. Darrick Cao MONO # 0.5 103/ul Normal 0.3-0.8 [facility] Comment on above: Performed By: #### C XWND #### [facility] [address] [place] [address] Dr. Darrick Cao Monocytes/100 WBC (Bld) 7.2 % Normal 1.7-12.0 [facility] Comment on above: Performed By: #### C XWND #### [facility] [address] [place] [address] Dr. Darrick Cao NEUT # 5.0 103/ul Normal 1.4-6.5 [facility] Comment on above: Performed By: #### C XWND #### [facility] [address] [place] [address] Dr. Darrick Cao Neutrophils/100 WBC (Bld) 66.6 % Normal 43.0-75.0 [facility] Comment on above: Performed By: #### C XWND #### [facility] [address] [place] [address] Dr. Darrick Cao Platelet mean volume (Bld) [Entitic vol] 9.6 fL Normal 9.5-13.5 [facility] Comment on above: Performed By: #### C XWND #### [facility] [address] [place] [address] [address] Darrick Cao PLT 295 103/ul Normal 150-450 [facility] Comment on above: Performed By: #### C XWND #### [facility] [address] [place] [address] [address] Darrick Cao RBC 3.61 106/ul Critically low 4.20-5.40 [facility] Comment on above: Performed By: #### C XWND #### [facility] [address] [place] [address] [address] Darrick Cao WBC 7.5 103/ul Normal 4.0-11.0 [facility] Comment on above: Performed By: #### C XWND #### [facility] [address] [address] [address] Darrick Cao ER URINE PROFILEon 2 Bilirubin Ql (U) Negative Normal NEGATIVE [facility] Comment on above: Performed By: #### U MICRO, ERUR ####[facility] [address] [place], [place] [address]DrMiguel Cao Clarity (U) CLEAR Normal CLEAR [facility] Comment on above: Performed By: #### U MICRO, ERUR ####[facility] [address] [place] [address]DrMiguel Cao Color (U) LT. YELLOW Normal YELLOW [facility] Comment on above: Performed By: #### U MICRO, ERUR ####[facility] [address] [place] [address]DrMiguel Cao ERUAHD A micrscopic examina tion will be performed if indicated. Normal [facility] Comment on above: Performed By: #### U MICRO, ERUR ####[facility] [address] [place] [address]DrMiguel Cao Glucose Ql (U) Negative Normal NEGATIVE [facility] Comment on above: Performed By: #### U MICRO, ERUR ####[facility] [address] [place] [address]Dr. Darrick Cao Hemoglobin Ql (U) SMALL Abnormal NEGATIVE [facility] Comment on above: Performed By: #### U MICRO, ERUR ####[facility] [address] [place] [address]Dr. Darrick Cao Ketones Ql (U) Negative Normal NEGATIVE [facility] Comment on above: Performed By: #### U MICRO, ERUR ####[facility] [address] [place], [place] [address]Dr. Darrick Cao LEUKOCYTES Negative Normal NEGATIVE [facility] Comment on above: Performed By: #### U MICRO, ERUR ####[facility] [address] [place], [place] [address]Dr. Darrick Cao Nitrite Ql (U) Negative Normal NEGATIVE [facility] Comment on above: Performed By: #### U MICRO, ERUR ####[facility] [address] [place], [place] [address]Dr. Darrick Cao pH (U) 6.0 [pH] Normal 5-9 [facility] Comment on above: Performed By: #### U MICRO, ERUR ####[facility] [address] [place], [place] [address]Dr. Darrick Cao SPEC GRAVITY 1.020 Normal 1.005-<=1. 025 [facility] Comment on above: Performed By: #### U MICRO, ERUR ####[facility] [address] [place], [place] [address]Dr. Darrick Cao UA PROTEIN Negative Normal NEGATIVE/ TRACE [facility] Comment on above: Performed By: #### U MICRO, ERUR ####[facility] [address] [place], [place] [address]Dr. Darrick Cao UR MICRO IND INDICATED Normal [facility] Comment on above: Performed By: #### U MICRO, ERUR ####[facility] [address] [place], [place] [address]Dr. Darrick Cao Urobilinogen Qn (U) 0.2 {Larissa'U}/dL Normal 0.2 - 1. 0 [facility] Comment on above: Performed By: #### U MICRO, ERUR ####[facility] [address] [place] [address]Dr. Darrick Cao POINT OF CARE GLUCOSEon 04-01 Glucose [Mass/Vol] 118 mg/dL Critically high 74-106 T [facility] Comment on above: Performed By: #### P OCGLUC ####[facility] [address] [place] [address]Dr. Darrick Cao PROF 14(COMP METB)on 022 Albumin [Mass/Vol] 2.9 g/dL Critically low 3.4-5.0 [facility] Comment on above: Performed By: #### P OCGLUC #### [facility] [address] [address] [address] Darrick Cao Albumin/Globulin [Mass ratio] 0.8 {ratio} Normal [facility] Comment on above: Performed By: #### P OCGLUC #### [facility] [address] [address] [address] Darrick Cao ALP [Catalytic activity/Vol] 113 U/L Normal 46-116 [facility] Comment on above: Performed By: #### P OCGLUC #### [facility] [address] [address] [address] Darrick Cao ALT [Catalytic activity/Vol] 56 U/L Normal 14-59 [facility] Comment on above: Performed By: #### P OCGLUC #### [facility] [address] [address] [address] Darrick Cao Anion gap [Moles/Vol] 8.8 mmol/L Normal [facility] Comment on above: Performed By: #### P OCGLUC #### [facility] [address] [address] [address] Darrikc Cao AST [Catalytic activity/Vol] 30 U/L Normal 15-37 [facility] Comment on above: Performed By: #### P OCGLUC #### [facility] [address] [address] [address] Darrick Cao Bilirubin [Mass/Vol] 0.3 mg/dL Normal 0.2-1.0 [facility] Comment on above: Performed By: #### P OCGLUC #### [facility] [address] [address] [address] Darrick Cao Calcium [Mass/Vol] 8.6 mg/dL Normal 8.5-10.1 [facility] Comment on above: Performed By: #### P OCGLUC #### [facility] [address] [address] [address] Darrick Cao Chloride [Moles/Vol] 105 mmol/L Normal 98-107 [facility] Comment on above: Performed By: #### P OCGLUC #### [facility] [address] [place] [address] Dr. Darrick Cao CO2 [Moles/Vol] 30.4 mmol/L Normal 21.0-32.0 [facility] Comment on above: Performed By: #### P OCGLUC #### [facility] [address] [place] [address] Dr. Darrick Cao Creatinine [Mass/Vol] 0.82 mg/dL Normal 0.55-1.02 [facility] Comment on above: Performed By: #### P OCGLUC #### [facility] [address] [place] [address] Dr. Darrick Cao EGFR-AF MALDIVIAN >60 Normal >=60 [facility] Comment on above: Performed By: #### P OCGLUC #### [facility] [address] [address] [address] Darrick Cao EGFR-NON AF MALDIVIAN >60 Normal >=60 [facility] Comment on above: Performed By: #### P OCGLUC #### [facility] [address] [address] [address] Darrick Cao Globulin (S) [Mass/Vol] 3.6 g/dL Normal [facility] Comment on above: Performed By: #### P OCGLUC #### [facility] [address] [address] [address] Darrick Cao Glucose [Mass/Vol] 103 mg/dL Normal 74-106 [facility] Comment on above: Performed By: #### P OCGLUC #### [facility] [address] [address] [address] Darrick Cao Potassium [Moles/Vol] 4.2 mmol/L Normal 3.5-5.1 [facility] Comment on above: Performed By: #### P OCGLUC #### [facility] [address] [address] [address] Darrick Cao Protein [Mass/Vol] 6.5 g/dL Normal 6.4-8.2 [facility] Comment on above: Performed By: #### P OCGLUC #### [facility] [address] [address] [address] Darrick Cao Sodium [Moles/Vol] 140 mmol/L Normal 136-145 [facility] Comment on above: Performed By: #### P OCGLUC #### [facility] [address] [address] [address] Darrick Cao Urea nitrogen [Mass/Vol] 11.0 mg/dL Normal 7.0-18.0 [facility] Comment on above: Performed By: #### P OCGLUC #### [facility] [address] [place] [address] Dr. Darrick Cao Urea nitrogen/Creatinine [Mass ratio] 13.4 mg/mg Normal [facility] Comment on above: Performed By: #### P OCGLUC #### [facility] [address] [address] [address] Darrick Cao URINE MICROSCOPIC ONLYon BACTERIA NONE SEEN Normal NONE SEEN [facility] Comment on above: Performed By: #### U MICRO, ERUR ####[facility] [id number] [address]Dr. Darrick Cao Bacteria identified Cx Nom (U) NOT INDICATED Normal [facility] Comment on above: Performed By: #### U MICRO, ERUR ####[facility] [id number] [address]Dr. Darrick Cao CAST NONE SEEN Normal NONE SEEN [facility] Comment on above: Performed By: #### U MICRO, ERUR ####[facility] [id number] [address]Dr. Darrick Cao Crystals LM Nom (Urine sed) NONE SEEN Normal NONE SEEN [facility] Comment on above: Performed By: #### U MICRO, ERUR ####[facility] [id number] [address]Dr. Darrick Cao Epithelial cells LM Ql (Urine sed) RARE Normal NONE SEEN /RARE [facility] Comment on above: Performed By: #### U MICRO, ERUR ####[facility] [id number] [address]Dr. Darrick Cao MUCOUS NONE SEEN Normal NONE SEEN [facility] Comment on above: Performed By: #### U MICRO, ERUR ####[facility] [id number] [address]Dr. Darrick Cao RBC 5-10 Abnormal 0-2 [facility] Comment on above: Performed By: #### U MICRO, ERUR ####[facility] [id number] [address]Dr. Darrick Cao WBC 0-2 Abnormal NONE SEEN [facility] Comment on above: Performed By: #### U MICRO, ERUR ####[facility] [address] [place], [place] [address]Dr. Darrick Cao XR CHEST 2 Von 04-25-2022 [...] AMY FOWLER Date: 2022-04-25 20:07 Normal [facility] CBC AUTO DIFFon 04-24-2022 BASO # 0.1 103/ul Normal 0.0-0.1 [facility] Comment on above: Performed By: #### P OCGLUC #### [facility] [address] [address] [address] Darrick Cao Basophils/100 WBC (Bld) 0.8 % Normal 0.2-2.0 [facility] Comment on above: Performed By: #### P OCGLUC #### [facility] [address] [place] [address] Dr. Darrick Cao EO # 0.1 103/ul Normal 0.0-0.7 [facility] Comment on above: Performed By: #### P OCGLUC #### [facility] [address] [place] [address] Dr. Darrick Cao Eosinophils/100 WBC (Bld) 1.9 % Normal 0.9-7.0 [facility] Comment on above: Performed By: #### P OCGLUC #### [facility] [address] [place] [address] Dr. Darrick Cao Erythrocyte distribution width (RBC) [Ratio] 15.6 % Critically high 11.0-15.0 [facility] Comment on above: Performed By: #### P OCGLUC #### [facility] [address] [place] [address] Dr. Darrick Cao Hematocrit (Bld) [Volume fraction] 35.4 % Critically low 36.0-48.0 [facility] Comment on above: Performed By: #### P OCGLUC #### [facility] [address] [place] [address] Dr. Darrick Cao Hemoglobin (Bld) [Mass/Vol] 11.4 g/dL Critically low 12.0-16.0 [facility] Comment on above: Performed By: #### P OCGLUC #### [facility] [address] [place] [address] Dr. Darrick Cao IG # 0.02 10e3/ul Normal 0.00-0.03 [facility] Comment on above: Performed By: #### P OCGLUC #### [facility] [address] [place] [address] Dr. Darrick Cao IG % 0.3 % Normal 0.0-0.5 [facility] Comment on above: Performed By: #### P OCGLUC #### [facility] [address] [address] [address] Darrick Cao LYMPH # 1.9 103/ul Normal 1.2-3.8 [facility] Comment on above: Performed By: #### P OCGLUC #### [facility] [address] [address] [address] Darrick Cao Lymphocytes/100 WBC (Bld) 30.2 % Normal 20.5-60.0 [facility] Comment on above: Performed By: #### P OCGLUC #### [facility] [address] [address] [address] Darrick Cao MANUAL DIFF REQ NO Normal [facility] Comment on above: Performed By: #### P OCGLUC #### [facility] [address] [place] [address] Dr. Darrick Cao MCH (RBC) [Entitic mass] 27.9 pg Normal 26.7-34.0 [facility] Comment on above: Performed By: #### P OCGLUC #### [facility] [address] [place] [address] Dr. Darrick Cao MCHC (RBC) [Mass/Vol] 32.2 g/dL Normal 29.9-35.2 [facility] Comment on above: Performed By: #### P OCGLUC #### [facility] [address] [place] [address] Dr. Darrick Cao MCV (RBC) [Entitic vol] 86.6 fL Normal 81.0-99.0 [facility] Comment on above: Performed By: #### P OCGLUC #### [facility] [address] [place] [address] Dr. Darrick Cao MONO # 0.6 103/ul Normal 0.3-0.8 [facility] Comment on above: Performed By: #### P OCGLUC #### [facility] [address] [address] [address] Darrick Cao Monocytes/100 WBC (Bld) 9.0 % Normal 1.7-12.0 [facility] Comment on above: Performed By: #### P OCGLUC #### [facility] [address] [place] [address] Dr. Darrick Cao NEUT # 3.7 103/ul Normal 1.4-6.5 [facility] Comment on above: Performed By: #### P OCGLUC #### [facility] [address] [place] [address] Dr. Darrick Cao Neutrophils/100 WBC (Bld) 57.8 % Normal 43.0-75.0 [facility] Comment on above: Performed By: #### P OCGLUC #### [facility] [address] [place] [address] Dr. Darrick Cao Platelet mean volume (Bld) [Entitic vol] 9.5 fL Normal 9.5-13.5 [facility] Comment on above: Performed By: #### P OCGLUC #### [facility] [address] [place] [address] Dr. Darrick Cao PLT 256 103/ul Normal 150-450 [facility] Comment on above: Performed By: #### P OCGLUC #### [facility] [address] [place] [address] Dr. Darrick Cao RBC 4.09 106/ul Critically low 4.20-5.40 [facility] Comment on above: Performed By: #### P OCGLUC #### [facility] [address] [place] [address] Dr. Darrick Cao WBC 6.3 103/ul Normal 4.0-11.0 [facility] Comment on above: Performed By: #### P OCGLUC #### [facility] [address] [place] [address] Dr. Darrick Cao GRAM STAINon 04-24-2022 COMMENTS NO ORGANISMS OBSERVED Normal [facility] Comment on above: Performed By: #### C XWND #### [facility] [address] [place] [address] Dr. Darrick Cao DIPHTHEROIDS Normal [facility] Comment on above: Performed By: #### C XWND #### [facility] [address] [place] [address] Dr. Darrick Cao EPITHELIALS Normal [facility] Comment on above: Performed By: #### C XWND #### [facility] [address] [address] [address] Darrick Cao FUNGAL ELEMENTS Normal [facility] Comment on above: Performed By: #### C XWND #### [facility] [address] [address] [address] Darrick Cao GRAM NEG BACILLI Normal [facility] Comment on above: Performed By: #### C XWND #### [facility] [address] [address] [address] Darrick SOLOMON NEG DIPPLOCOCCI Normal [facility] Comment on above: Performed By: #### C XWND #### [facility] [address] [address] [address] Darrick Cao GRAM POS BACILLI Normal [facility] Comment on above: Performed By: #### C XWND #### [facility] [address] [address] [address] Darrick Cao GRAM POSITIVE COCCI Normal [facility] Comment on above: Performed By: #### C XWND #### [facility] [address] [address] [address] Darrick Cao GRAM STAIN SOURCE Post irrigation left foot Normal [facility] Comment on above: Performed By: #### C XWND #### [facility] [address] [address] [address] Darrick Cao GS_DIPTH Normal [facility] Comment on above: Performed By: #### C XWND #### [facility] [address] [address] [address] Darrick Cao WBC NONE SEEN Normal [facility] Comment on above: Performed By: #### C XWND #### [facility] [address] [address] [address] aDrrick Cao POINT OF CARE GLUCOSEon 07-2 Glucose [Mass/Vol] 132 mg/dL Critically high 74-106 [facility] Comment on above: Performed By: #### P OCGLUC #### [facility] [address] [address] [address] Darrick Cao Glucose [Mass/Vol] 105 mg/dL Normal 74-106 [facility] Comment on above: Performed By: #### P OCGLUC ####[facility] [id number] [address]Dr. Darrick Cao PROF 14(COMP METB)on 022 Albumin [Mass/Vol] 2.9 g/dL Critically low 3.4-5.0 [facility] Comment on above: Performed By: #### P OCGLUC #### [facility] [address] [address] [address] Darrick Cao Albumin/Globulin [Mass ratio] 0.8 {ratio} Normal [facility] Comment on above: Performed By: #### P OCGLUC #### [facility] [address] [address] [address] Darrick Cao ALP [Catalytic activity/Vol] 122 U/L Critically high 46-116 [facility] Comment on above: Performed By: #### P OCGLUC #### [facility] [address] [address] [address] Darrick Cao ALT [Catalytic activity/Vol] 65 U/L Critically high 14-59 [facility] Comment on above: Performed By: #### P OCGLUC #### [facility] [address] [address] [address] Darrick Cao Anion gap [Moles/Vol] 12.2 mmol/L Normal [facility] Comment on above: Performed By: #### P OCGLUC #### [facility] [address] [address] [address] Darrick Cao AST [Catalytic activity/Vol] 28 U/L Normal 15-37 [facility] Comment on above: Performed By: #### P OCGLUC #### [facility] [address] [address] [address] Darrick Cao Bilirubin [Mass/Vol] 0.3 mg/dL Normal 0.2-1.0 [facility] Comment on above: Performed By: #### P OCGLUC #### [facility] [address] [address] [address] Darrick Cao Calcium [Mass/Vol] 8.5 mg/dL Normal 8.5-10.1 [facility] Comment on above: Performed By: #### P OCGLUC #### [facility] [address] [address] [address] Darrick Cao Chloride [Moles/Vol] 107 mmol/L Normal 98-107 [facility] Comment on above: Performed By: #### P OCGLUC #### [facility] [address] [address] [address] Darrick Cao CO2 [Moles/Vol] 25.9 mmol/L Normal 21.0-32.0 [facility] Comment on above: Performed By: #### P OCGLUC #### [facility] [address] [place] [address] Dr. Darrick Cao Creatinine [Mass/Vol] 0.87 mg/dL Normal 0.55-1.02 [facility] Comment on above: Performed By: #### P OCGLUC #### [facility] [address] [address] [address] Darrick Cao EGFR-AF MALDIVIAN >60 Normal >=60 [facility] Comment on above: Performed By: #### P OCGLUC #### [facility] [address] [address] [address] Darrick Cao EGFR-NON AF MALDIVIAN >60 Normal >=60 [facility] Comment on above: Performed By: #### P OCGLUC #### [facility] [address] [address] [address] Darrick Cao Globulin (S) [Mass/Vol] 3.8 g/dL Normal [facility] Comment on above: Performed By: #### P OCGLUC #### [facility] [address] [address] [address] Darrick Cao Glucose [Mass/Vol] 107 mg/dL Critically high 74-106 [facility] Comment on above: Performed By: #### P OCGLUC #### [facility] [address] [address] [address] Darrick Cao Potassium [Moles/Vol] 4.1 mmol/L Normal 3.5-5.1 [facility] Comment on above: Performed By: #### P OCGLUC #### [facility] [address] [address] [address] Darrick Cao Protein [Mass/Vol] 6.7 g/dL Normal 6.4-8.2 [facility] Comment on above: Performed By: #### P OCGLUC #### [facility] [address] [address] [address] Darrick Cao Sodium [Moles/Vol] 141 mmol/L Normal 136-145 [facility] Comment on above: Performed By: #### P OCGLUC #### [facility] [address] [place] [address] Dr. Darrick Cao Urea nitrogen [Mass/Vol] 10.0 mg/dL Normal 7.0-18.0 [facility] Comment on above: Performed By: #### P OCGLUC #### [facility] [address] [place] [address] Dr. Darrick Cao Urea nitrogen/Creatinine [Mass ratio] 11.5 mg/mg Normal [facility] Comment on above: Performed By: #### P OCGLUC #### [facility] [address] [place] [address] Dr. Darrick Cao VANCOMYCIN TROUGHon 04-24-20 VANCOMYCIN TROUGH 9.6 ug/ml Normal 5.0-20.0 [facility] Comment on above: Performed By: #### V ANCT #### [facility] [address] [place] [address] Dr. Darrick Cao CBC AUTO DIFFon 04-23-2022 BASO # 0.1 103/ul Normal 0.0-0.1 [facility] Comment on above: Performed By: #### C XWND #### [facility] [address] [place] [address] Dr. Darrick Cao Basophils/100 WBC (Bld) 0.6 % Normal 0.2-2.0 [facility] Comment on above: Performed By: #### C XWND #### [facility] [address] [place] [address] Dr. Darrick Cao EO # 0.1 103/ul Normal 0.0-0.7 [facility] Comment on above: Performed By: #### C XWND #### [facility] [address] [place] [address] Dr. Darrick Cao Eosinophils/100 WBC (Bld) 0.6 % Critically low 0.9-7.0 [facility] Comment on above: Performed By: #### C XWND #### [facility] [address] [place] [address] Dr. Darrick Cao Erythrocyte distribution width (RBC) [Ratio] 15.8 % Critically high 11.0-15.0 [facility] Comment on above: Performed By: #### C XWND #### [facility] [address] [place] [address] Dr. Darrick Cao Hematocrit (Bld) [Volume fraction] 34.0 % Critically low 36.0-48.0 [facility] Comment on above: Performed By: #### C XWND #### [facility] [address] [place] [address] Dr. Darrick Cao Hemoglobin (Bld) [Mass/Vol] 11.0 g/dL Critically low 12.0-16.0 [facility] Comment on above: Performed By: #### C XWND #### [facility] [address] [place] [address] Dr. Darrick Cao IG # 0.03 10e3/ul Normal 0.00-0.03 [facility] Comment on above: Performed By: #### C XWND #### [facility] [address] [place] [address] Dr. Darrick Cao IG % 0.4 % Normal 0.0-0.5 [facility] Comment on above: Performed By: #### C XWND #### [facility] [address] [place] [address] Dr. Darrick Cao LYMPH # 1.6 103/ul Normal 1.2-3.8 [facility] Comment on above: Performed By: #### C XWND #### [facility] [address] [address] [address] Darrick Cao Lymphocytes/100 WBC (Bld) 19.6 % Critically low 20.5-60.0 [facility] Comment on above: Performed By: #### C XWND #### [facility] [address] [place] [address] Dr. Darrick Cao MANUAL DIFF REQ NO Normal [facility] Comment on above: Performed By: #### C XWND #### [facility] [address] [place] [address] Dr. Darrick Cao MCH (RBC) [Entitic mass] 28.1 pg Normal 26.7-34.0 [facility] Comment on above: Performed By: #### C XWND #### [facility] [address] [place] [address] Dr. Darrick Cao MCHC (RBC) [Mass/Vol] 32.4 g/dL Normal 29.9-35.2 [facility] Comment on above: Performed By: #### C XWND #### [facility] [address] [place] [address] Dr. Darrick Cao MCV (RBC) [Entitic vol] 87.0 fL Normal 81.0-99.0 [facility] Comment on above: Performed By: #### C XWND #### [facility] [address] [place] [address] Dr. Darrick Cao MONO # 0.8 103/ul Normal 0.3-0.8 [facility] Comment on above: Performed By: #### C XWND #### [facility] [address] [place] [address] Dr. Darrick Cao Monocytes/100 WBC (Bld) 10.3 % Normal 1.7-12.0 [facility] Comment on above: Performed By: #### C XWND #### [facility] [address] [place] [address] Dr. Darrick Cao NEUT # 5.4 103/ul Normal 1.4-6.5 [facility] Comment on above: Performed By: #### C XWND #### [facility] [address] [address] [address] Darrick Cao Neutrophils/100 WBC (Bld) 68.5 % Normal 43.0-75.0 [facility] Comment on above: Performed By: #### C XWND #### [facility] [address] [address] [address] Darrick Cao Platelet mean volume (Bld) [Entitic vol] 9.9 fL Normal 9.5-13.5 [facility] Comment on above: Performed By: #### C XWND #### [facility] [address] [address] [address] Darrick Cao PLT 276 103/ul Normal 150-450 [facility] Comment on above: Performed By: #### C XWND #### [facility] [address] [address] [address] Darrick Cao RBC 3.91 106/ul Critically low 4.20-5.40 [facility] Comment on above: Performed By: #### C XWND #### [facility] [address] [address] [address] Darrick Cao WBC 7.9 103/ul Normal 4.0-11.0 [facility] Comment on above: Performed By: #### C XWND #### [facility] [address] [address] [address] Darrick Cao POINT OF CARE GLUCOSEon 04-01 Glucose [Mass/Vol] 138 mg/dL Critically high 74-106 [facility] Comment on above: Performed By: #### P OCGLUC ####[facility] [id number] [address]Dr. Darrick Cao Glucose [Mass/Vol] 151 mg/dL Critically high 74-106 [facility] Comment on above: Performed By: #### P OCGLUC #### [facility] [address] [address] [address] Darrick Cao Glucose [Mass/Vol] 141 mg/dL Critically high 74-106 T [facility] Comment on above: Performed By: #### P OCGLUC ####[facility] [id number] [address]Dr. Darrick Cao PROF 14(COMP METB)on 022 Albumin [Mass/Vol] 3.0 g/dL Critically low 3.4-5.0 [facility] Comment on above: Performed By: #### C XWND #### [facility] [address] [address] [address] Darrick Cao Albumin/Globulin [Mass ratio] 0.9 {ratio} Normal [facility] Comment on above: Performed By: #### C XWND #### [facility] [address] [address] [address] Darrick Cao ALP [Catalytic activity/Vol] 128 U/L Critically high 46-116 [facility] Comment on above: Performed By: #### C XWND #### [facility] [address] [address] [address] Darrick Cao ALT [Catalytic activity/Vol] 71 U/L Critically high 14-59 [facility] Comment on above: Performed By: #### C XWND #### [facility] [address] [address] [address] Darrick Cao Anion gap [Moles/Vol] 13.1 mmol/L Normal [facility] Comment on above: Performed By: #### C XWND #### [facility] [address] [address] [address] Darrick Cao AST [Catalytic activity/Vol] 50 U/L Critically high 15-37 [facility] Comment on above: Performed By: #### C XWND #### [facility] [address] [address] [address] Darrick Cao Bilirubin [Mass/Vol] 0.3 mg/dL Normal 0.2-1.0 [facility] Comment on above: Performed By: #### C XWND #### [facility] [address] [address] [address] Darrick Cao Calcium [Mass/Vol] 8.2 mg/dL Critically low 8.5-10.1 [facility] Comment on above: Performed By: #### C XWND #### [facility] [address] [place] [address] Dr. Darrick Cao Chloride [Moles/Vol] 110 mmol/L Critically high 98-107 [facility] Comment on above: Performed By: #### C XWND #### [facility] [address] [place] [address] Dr. Darrick Cao CO2 [Moles/Vol] 23.4 mmol/L Normal 21.0-32.0 [facility] Comment on above: Performed By: #### C XWND #### [facility] [address] [place] [address] Dr. Darrick Cao Creatinine [Mass/Vol] 0.96 mg/dL Normal 0.55-1.02 [facility] Comment on above: Performed By: #### C XWND #### [facility] [address] [place] [address] Dr. Darrick Cao EGFR-AF MALDIVIAN >60 Normal >=60 [facility] Comment on above: Performed By: #### C XWND #### [facility] [address] [place] [address] Dr. Darrick Cao EGFR-NON AF MALDIVIAN 59 mL/min/1.73m2 Critically low >=60 [facility] Comment on above: Performed By: #### C XWND #### [facility] [address] [place] [address] Dr. Darrick Cao Globulin (S) [Mass/Vol] 3.3 g/dL Normal [facility] Comment on above: Performed By: #### C XWND #### [facility] [address] [place] [address] Dr. Darrick Cao Glucose [Mass/Vol] 116 mg/dL Critically high 74-106 T [facility] Comment on above: Performed By: #### C XWND #### [facility] [address] [place] [address] Dr. Darrick Cao Potassium [Moles/Vol] 4.5 mmol/L Normal 3.5-5.1 [facility] Comment on above: Performed By: #### C XWND #### [facility] [address] [place] [address] Dr. Darrick Cao Protein [Mass/Vol] 6.3 g/dL Critically low 6.4-8.2 [facility] Comment on above: Performed By: #### C XWND #### [facility] [address] [place] [address] Dr. Darrick Cao Sodium [Moles/Vol] 142 mmol/L Normal 136-145 [facility] Comment on above: Performed By: #### C XWND #### [facility] [address] [place] [address] Dr. Darrick Cao Urea nitrogen [Mass/Vol] 14.0 mg/dL Normal 7.0-18.0 [facility] Comment on above: Performed By: #### C XWND #### [facility] [address] [place] [address] Dr. Darrick Cao Urea nitrogen/Creatinine [Mass ratio] 14.6 mg/mg Normal [facility] Comment on above: Performed By: #### C XWND #### [facility] [address] [place] [address] Dr. Darrick Cao CBC AUTO DIFFon 04-22-2022 BASO # 0.1 103/ul Normal 0.0-0.1 [facility] Comment on above: Performed By: #### C BC #### [facility] [address] [place] [address] Dr. Darrick Cao Basophils/100 WBC (Bld) 0.7 % Normal 0.2-2.0 [facility] Comment on above: Performed By: #### C BC #### [facility] [address] [place] [address] Dr. Darrick Cao EO # 0.1 103/ul Normal 0.0-0.7 [facility] Comment on above: Performed By: #### C BC #### [facility] [address] [place] [address] Dr. Darrick Cao Eosinophils/100 WBC (Bld) 0.5 % Critically low 0.9-7.0 [facility] Comment on above: Performed By: #### C BC #### [facility] [address] [place] [address] Dr. Darrick Cao Erythrocyte distribution width (RBC) [Ratio] 15.8 % Critically high 11.0-15.0 [facility] Comment on above: Performed By: #### C BC #### [facility] [address] [place] [address] Dr. Darrick Cao Hematocrit (Bld) [Volume fraction] 39.8 % Normal 36.0-48.0 [facility] Comment on above: Performed By: #### C BC #### [facility] [address] [place] [address] Dr. Darrick Cao Hemoglobin (Bld) [Mass/Vol] 12.9 g/dL Normal 12.0-16.0 [facility] Comment on above: Performed By: #### C BC #### [facility] [address] [place] [address] Dr. Darrick Cao IG # 0.03 10e3/ul Normal 0.00-0.03 [facility] Comment on above: Performed By: #### C BC #### [facility] [address] [place] [address] Dr. Darrick Cao IG % 0.3 % Normal 0.0-0.5 [facility] Comment on above: Performed By: #### C BC #### [facility] [address] [place] [address] Dr. Darrick Cao LYMPH # 1.6 103/ul Normal 1.2-3.8 [facility] Comment on above: Performed By: #### C BC #### [facility] [address] [place] [address] Dr. Darrick Cao Lymphocytes/100 WBC (Bld) 16.0 % Critically low 20.5-60.0 [facility] Comment on above: Performed By: #### C BC #### [facility] [address] [place] [address] Dr. Darrick Cao MANUAL DIFF REQ NO Normal [facility] Comment on above: Performed By: #### C BC #### [facility] [address] [place] [address] Dr. Darrick Cao MCH (RBC) [Entitic mass] 28.2 pg Normal 26.7-34.0 [facility] Comment on above: Performed By: #### C BC #### [facility] [address] [place] [address] Dr. Darrick Cao MCHC (RBC) [Mass/Vol] 32.4 g/dL Normal 29.9-35.2 [facility] Comment on above: Performed By: #### C BC #### [facility] [address] [place] [address] Dr. Darrick Cao MCV (RBC) [Entitic vol] 86.9 fL Normal 81.0-99.0 [facility] Comment on above: Performed By: #### C BC #### [facility] [address] [place] [address] Dr. Darrick Cao MONO # 0.9 103/ul Critically high 0.3-0.8 [facility] Comment on above: Performed By: #### C BC #### [facility] [address] [place] [address] Dr. Darrick Cao Monocytes/100 WBC (Bld) 8.7 % Normal 1.7-12.0 [facility] Comment on above: Performed By: #### C BC #### [facility] [address] [place] [address] Dr. Darrick Cao NEUT # 7.5 103/ul Critically high 1.4-6.5 [facility] Comment on above: Performed By: #### C BC #### [facility] [address] [place] [address] Dr. Darrick Cao Neutrophils/100 WBC (Bld) 73.8 % Normal 43.0-75.0 [facility] Comment on above: Performed By: #### C BC #### [facility] [address] [place] [address] Dr. Darrick Cao Platelet mean volume (Bld) [Entitic vol] 9.3 fL Critically low 9.5-13.5 [facility] Comment on above: Performed By: #### C BC #### [facility] [address] [place] [address] Dr. Darrick Cao PLT 345 103/ul Normal 150-450 [facility] Comment on above: Performed By: #### C BC #### [facility] [address] [address] [address] Darrick Cao RBC 4.58 106/ul Normal 4.20-5.40 [facility] Comment on above: Performed By: #### C BC #### [facility] [address] [place] [address] Dr. Darrick Cao WBC 10.1 103/ul Normal 4.0-11.0 [facility] Comment on above: Performed By: #### C BC #### [facility] [address] [place] [address] Dr. Darrick Cao CRPon 04-22-2022 CRP 5.2 mg/dL Critically high <=1.0 [facility] Comment on above: Performed By: #### B MP, CRP ####[facility] [address] [id number]. Darrick Cao CULTURE BLOODon 04-22-2022 Microscopic examination of blood, culture Culture Observations: NO GROWTH AT 5 DAYS. Normal [facility] Comment on above: Performed By: #### B LDCX2 #### [facility] [address] [place] [address] Dr. Darrick Cao Microscopic examination of blood, culture Culture Observations: NO GROWTH AT 5 DAYS. Normal [facility] Comment on above: Performed By: #### B LDCX1 #### [facility] [address] [place] [address] Dr. Darrick Ca[facility] SARS-CoV-2 (COVID-19) RNA ALEKSANDR+probe Ql (Unsp spec) Not detected Normal NOT DETECTED [facility] Comment on above: Result Comment: When diagnostic [...] for this test is supported by the Credit Portfolio Advisor of Health and Human Service's declaration that [...] used). Performed By: #### P OCGLUC #### [facility] [address] [place] [address] Dr. Darrick Cao LACTATE/LACTIC ACIDon 2021 Lactate [Moles/Vol] 1.3 mmol/L Normal 0.4-1.9 [facility] Comment on above: Performed By: #### P OCGLUC #### [facility] [address] [place] [address] Dr. Darrick Cao POINT OF CARE GLUCOSEon 04-01 Glucose [Mass/Vol] 96 mg/dL Normal 74-106 [facility] Comment on above: Performed By: #### P OCGLUC #### [facility] [address] [place] [address] Dr. Darrick Cao PROF CHEM 8 (BAS METB)on Anion gap [Moles/Vol] 12.3 mmol/L Normal [facility] Comment on above: Performed By: #### B MP, CRP ####[facility] [address] [address]Dr. Darrick Cao Calcium [Mass/Vol] 9.2 mg/dL Normal 8.5-10.1 [facility] Comment on above: Performed By: #### B MP, CRP ####[facility] [address] [address]Dr. Darrick Cao Chloride [Moles/Vol] 104 mmol/L Normal 98-107 [facility] Comment on above: Performed By: #### B MP, CRP ####[facility] [address] [address]Dr. Darrick Cao CO2 [Moles/Vol] 26.4 mmol/L Normal 21.0-32.0 [facility] Comment on above: Performed By: #### B MP, CRP ####[facility] [address] [address]Dr. Darrick Cao Creatinine [Mass/Vol] 1.19 mg/dL Critically high 0.55-1.02 [facility] Comment on above: Performed By: #### B MP, CRP ####[facility] [address] [address]Dr. Darrick Cao EGFR-AF MALDIVIAN 56 mL/min/1.73m2 Critically low >=60 [facility] Comment on above: Performed By: #### B MP, CRP ####[facility] [address] [address]Dr. Darrick Cao EGFR-NON AF MALDIVIAN 46 mL/min/1.73m2 Critically low >=60 [facility] Comment on above: Performed By: #### B MP, CRP ####[facility] [address] [address]Dr. Darrick Cao Glucose [Mass/Vol] 124 mg/dL Critically high 74-106 [facility] Comment on above: Performed By: #### B MP, CRP ####[facility] [address] [address]Dr. Darrick Cao Potassium [Moles/Vol] 4.7 mmol/L Normal 3.5-5.1 [facility] Comment on above: Performed By: #### B MP, CRP ####[facility] [address] [address]Dr. Darrick Cao Sodium [Moles/Vol] 138 mmol/L Normal 136-145 [facility] Comment on above: Performed By: #### B MP, CRP ####[facility] [address] [place], [place] [address]Yv. Darrick Cao Urea nitrogen [Mass/Vol] 21.0 mg/dL Critically high 7.0-18.0 [facility] Comment on above: Performed By: #### B MP, CRP ####[facility] [address] [place], [place] [address]Ud. Darrick Cao Urea nitrogen/Creatinine [Mass ratio] 17.6 mg/mg Normal [facility] Comment on above: Performed By: #### B MP, CRP ####[facility] [address] [place], [place] [address]Fe. Darrick Cao [facility] SED RATE 64 mm/hr Critically high <=30 [facility] Comment on above: Performed By: #### P OCGLUC #### [facility] [address] [place], [place] [address] ANKLE LT WO [...] by: SHAWNEE KELLY Date: 2022-03-11 10:18 Normal [facility] UCAN Quick Testingon 2020 Result Negative [facility] Other Operative Reporton Operative Report MR#: [id number] S [facility] Pt. Name: Nicol Knowles Room #: 0C Discharge Date: Birthdate: 1960 OPERATIVE REPORT DATE OF SURGERY: 12/16/2020 SURGEON: David Lr M.D. PREOPERATIVE DIAGNOSIS: Trigger digits, right long finger and thumb. POSTOPERATIVE DIAGNOSIS: Trigger digits, right long finger and thumb. PROCEDURE: A1 leigha release, right long finger and thumb. PRODUCTION STAGE MANAGER: Hay Mast M.D. ANESTHESIA: MAC. INDICATION FOR [...] Lr M.D. Date Trans: 12/16/2020 09:13 A/braxton [id number] cc: Waqas Pierce M.D. [address] [place] [id number] Normal The [facility] POC GLUCOSE LABon 12-16-2020 Glucose [Mass/Vol] 103 mg/dL High 70-100 The [facility] Comment on above: Performed By: #### 8 [id number] #### [facility] [address] [place] [address], [facility] Vital Signs Date Time Vital Sign Value Performing Clinician Facility 10-15-2023 10:00-0500 Body height 170.18 cm Grecia Carrera Other [facility] Other 10-15-2023 10:00-0500 Body mass index (BMI) [Ratio] 40.08 kg/m2 Grecia Fitt Other [facility] Other 10-15-2023 10:00-0500 Body weight 116.08 kg Grecia Fitt Other [facility] Other 09-18-2023 11:00-0500 Body height 170.18 cm Rolando Castellanos Other [facility] Other 09-18-2023 11:00-0500 Body mass index (BMI) [Ratio] 40.45 kg/m2 Rolando Castellanos Other [facility] Other 09-18-2023 11:00-0500 Body weight 117.16 kg Rolando Castellanos Other [facility] Other 09-18-2023 11:00-0500 Diastolic blood pressure 80 mm[Hg] Rolando Castellanos Other [facility] Other 09-18-2023 11:00-0500 Respiratory rate 18 /min Rolando Castellanos Other [facility] Other 09-18-2023 11:00-0500 SaO2% (BldA) [Mass fraction] 98 % Rolando Castellanos Other [facility] Other 09-18-2023 11:00-0500 Systolic blood pressure 115 mm[Hg] Rolando Castellanos Other [facility] Other 09-17-2023 10:45-0500 Body height 170.18 cm Grecia Henryt Other [facility] Other 09-17-2023 10:45-0500 Body mass index (BMI) [Ratio] 40.65 kg/m2 Grecia Fitt Other [facility] Other 09-17-2023 10:45-0500 Body weight 117.75 kg Grecia Fitt Other [facility] Other 09-03-2023 12:45-0500 Diastolic blood pressure 60 mm[Hg] MD Waqas Pierce Work Phone: [facility] 09-03-2023 12:45-0500 Heart rate 70 /min MD Waqas Pierce Work Phone: [facility] 09-03-2023 12:45-0500 Inhaled oxygen flow rate 1 L/min MD Waqas Pierce Work Phone: [facility] 09-03-2023 12:45-0500 Respiratory rate 16 /min MD Waqas Pierce Work Phone: [facility] 09-03-2023 12:45-0500 SaO2% (BldA) [Mass fraction] 97 % MD Waqas Pierce Work Phone: [facility] 09-03-2023 12:45-0500 Systolic blood pressure 132 mm[Hg] MD Waqas Pierce Work Phone: [facility] 09-03-2023 10:21-0500 Body temperature 98.4 [degF] MD Waqas Pierce Work Phone: [facility] 09-03-2023 07:14-0500 Body height 172.72 cm MD Waqas Pierce Work Phone: [facility] 09-03-2023 07:14-0500 Body mass index (BMI) [Ratio] 39.5 kg/m2 MD Waqas Pierce Work Phone: [facility] 09-03-2023 07:14-0500 Body weight 118 kg MD Waqas Pierce Work Phone: [facility] 08-21-2023 14:30-0500 Body height 170.18 cm Waqas Pierce Other [facility] Other 08-21-2023 14:30-0500 Body mass index (BMI) [Ratio] 39.46 kg/m2 Waqas Pierce Other [facility] Other 08-21-2023 14:30-0500 Body weight 114.31 kg Waqas Pierce Other [facility] Other 08-21-2023 14:30-0500 Diastolic blood pressure 84 mm[Hg] Waqas Pierce Other [facility] Other 08-21-2023 14:30-0500 Systolic blood pressure 138 mm[Hg] Waqas Pierce Other [facility] Other 08-13-2023 10:45-0500 Body height 170.18 cm Grecia Fitt Other [facility] Other 08-13-2023 10:45-0500 Body mass index (BMI) [Ratio] 41.22 kg/m2 Grecia Fitt Other [facility] Other 08-13-2023 10:45-0500 Body weight 119.39 kg Grecia Fitt Other [facility] Other 07-26-2023 11:30-0400 Body height 170.18 cm Rolando Castellanos Other [facility] Other 07-26-2023 11:30-0400 Body mass index (BMI) [Ratio] 41.86 kg/m2 Rolando Castellanos Other [facility] Other 07-26-2023 11:30-0400 Body weight 121.25 kg Rolando Reyesdiff Other [facility] Other 07-26-2023 11:30-0400 Diastolic blood pressure 77 mm[Hg] Rolando Reyesdiff Other [facility] Other 07-26-2023 11:30-0400 Respiratory rate 18 /min Rolando Reyesdiff Other [facility] Other 07-26-2023 11:30-0400 SaO2% (BldA) [Mass fraction] 98 % Rolando Reyesdiff Other [facility] Other 07-26-2023 11:30-0400 Systolic blood pressure 121 mm[Hg] Rolando Reyesdiff Other [facility] Other 07-23-2023 10:45-0400 Body height 170.18 cm Grecia Fitt Other [facility] Other 07-23-2023 10:45-0400 Body mass index (BMI) [Ratio] 41.78 kg/m2 Grecia Fitt Other [facility] Other 07-23-2023 10:45-0400 Body weight 121.02 kg Grecia Fitt Other [facility] Other 06-27-2023 15:15-0400 Body height 170.18 cm David Mcfarland II Other [facility] Other 06-27-2023 15:15-0400 Body mass index (BMI) [Ratio] 41.97 kg/m2 David Mcfarland II Other [facility] Other 06-27-2023 15:15-0400 Body weight 121.56 kg David Mcfarland II Other [facility] Other 06-18-2023 11:30-0400 Body height 170.18 cm Grecia Fitt Other [facility] Other 06-18-2023 11:30-0400 Body mass index (BMI) [Ratio] 42.52 kg/m2 Grecia Fitt Other [facility] Other 06-18-2023 11:30-0400 Body weight 123.15 kg Grecia Fitt Other [facility] Other 06-14-2023 10:00-0400 Body height 170.18 cm Rolando Castellanos Other [facility] Other 06-14-2023 10:00-0400 Body mass index (BMI) [Ratio] 42.89 kg/m2 Rolando Castellanos Other [facility] Other 06-14-2023 10:00-0400 Body weight 124.24 kg Rolando Castellanos Other [facility] Other 06-14-2023 10:00-0400 Diastolic blood pressure 87 mm[Hg] Rolando Castellanos Other [facility] Other 06-14-2023 10:00-0400 Respiratory rate 18 /min Rolando Castellanos Other [facility] Other 06-14-2023 10:00-0400 SaO2% (BldA) [Mass fraction] 100 % Rolando Castellanos Other [facility] Other 06-14-2023 10:00-0400 Systolic blood pressure 124 mm[Hg] Rolando Castellanos Other [facility] Other 06-11-2023 12:45-0400 Body height 170.18 cm Waqas Pierce Other [facility] Other 06-11-2023 12:45-0400 Body mass index (BMI) [Ratio] 42.41 kg/m2 Waqas Pierce Other [facility] Other 06-11-2023 12:45-0400 Body weight 122.83 kg Waqas Pierce Other [facility] Other 06-11-2023 12:45-0400 Diastolic blood pressure 76 mm[Hg] Waqas Pierce Other [facility] Other 06-11-2023 12:45-0400 Respiratory rate 12 /min Waqas Pierce Other [facility] Other 06-11-2023 12:45-0400 Systolic blood pressure 124 mm[Hg] Waqas Pierce Other [facility] Other 05-14-2023 10:00-0400 Body height 170.18 cm Grecia Fitt Other [facility] Other 05-14-2023 10:00-0400 Body mass index (BMI) [Ratio] 43.05 kg/m2 Grecia Fitt Other [facility] Other 05-14-2023 10:00-0400 Body weight 124.69 kg Grecia Fitt Other [facility] Other 04-16-2023 10:00-0400 Body height 170.18 cm Grecia Fitt Other [facility] Other 04-16-2023 10:00-0400 Body mass index (BMI) [Ratio] 43.94 kg/m2 Grecia Fitt Other [facility] Other 04-16-2023 10:00-0400 Body weight 127.28 kg Grecia Fitt Other [facility] Other 01-11-2023 11:00-0400 Body height 170.18 cm Grecia Fitt Other [facility] Other 01-11-2023 11:00-0400 Body mass index (BMI) [Ratio] 47.37 kg/m2 Grecia Fitt Other [facility] Other 01-11-2023 11:00-0400 Body weight 137.21 kg Grecia Fitt Other [facility] Other 11-16-2022 11:45-0500 Body height 170.18 cm Rolando Castellanos Other [facility] Other 11-16-2022 11:45-0500 Body mass index (BMI) [Ratio] 47 kg/m2 Rolandotimothy Castellanos Other [facility] Other 11-16-2022 11:45-0500 Body weight 136.13 kg Rolando Castellanos Other [facility] Other 11-16-2022 11:45-0500 Diastolic blood pressure 85 mm[Hg] Rolando Castellanos Other [facility] Other 11-16-2022 11:45-0500 Respiratory rate 18 /min Rolando Reyesdiff Other [facility] Other 11-16-2022 11:45-0500 SaO2% (BldA) [Mass fraction] 97 % Rolando Reyesdiff Other [facility] Other 11-16-2022 11:45-0500 Systolic blood pressure 114 mm[Hg] Rolando Reyesdiff Other [facility] Other 11-14-2022 09:15-0500 Body height 170.18 cm Grecia Carrera Other [facility] Other 11-08-2022 14:57-0500 Blood Pressure Location Efrain N[facility] 11-08-2022 14:57-0500 Diastolic blood pressure 74 mm[Hg] Efrain N[facility] 11-08-2022 14:57-0500 Heart rate 80 /min Efrain NILL [facility] 11-08-2022 14:57-0500 Respiratory rate 16 /min Efrain NILL [facility] 11-08-2022 14:57-0500 Systolic blood pressure 118 mm[Hg] Efrain NILL [facility] 10-23-2022 10:30-0500 Body height 170.18 cm Waqas Pierce Other [facility] Other 10-23-2022 10:30-0500 Body mass index (BMI) [Ratio] 46.04 kg/m2 Waqas Pierce Other [facility] Other 10-23-2022 10:30-0500 Body weight 133.36 kg Waqas Pierce Other [facility] Other 10-23-2022 10:30-0500 Diastolic blood pressure 88 mm[Hg] Waqas Pierce Other [facility] Other 10-23-2022 10:30-0500 Systolic blood pressure 148 mm[Hg] Waqas Pierce Other [facility] Other 10-13-2022 10:15-0500 Body height 170.18 cm Rachel Missler Other [facility] Other 10-13-2022 10:15-0500 Body mass index (BMI) [Ratio] 45.89 kg/m2 Rachel Missler Other [facility] Other 10-13-2022 10:15-0500 Body weight 132.9 kg Rachel Missler Other [facility] Other 10-13-2022 10:15-0500 Diastolic blood pressure 89 mm[Hg] Rachel Missler Other [facility] Other 10-13-2022 10:15-0500 Respiratory rate 18 /min Rachel Missler Other [facility] Other 10-13-2022 10:15-0500 SaO2% (BldA) [Mass fraction] 96 % Rachel Missler Other [facility] Other 10-13-2022 10:15-0500 Systolic blood pressure 138 mm[Hg] Rachel Missler Other [facility] Other 09-06-2022 16:00-0500 Body height 170.18 cm David Bergenfield II Other [facility] Other 09-06-2022 16:00-0500 Body mass index (BMI) [Ratio] 45.57 kg/m2 David Mcelroyisle II Other [facility] Other 09-06-2022 16:00-0500 Body weight 132 kg aDvid Mcelroyisle II Other [facility] Other 07-25-2021 18:45-0400 Body height 170.18 cm Mallory Wilfrid Other [facility] Other 07-25-2021 18:45-0400 Body mass index (BMI) [Ratio] 42.91 kg/m2 Mallory Yuen Other [facility] Other 07-25-2021 18:45-0400 Body temperature 98.6 [degF] Mallory Wilfrid Other [facility] Other 07-25-2021 18:45-0400 Body weight 124.29 kg Mallory Wilfrid Other [facility] Other 07-25-2021 18:45-0400 Respiratory rate 18 /min Mallory Yuen Other [facility] Other 07-25-2021 18:45-0400 SaO2% (BldA) [Mass fraction] 96 % Mallory Yuen Other [facility] Other Encounters Encounter Date Encounter Type Care Provider Facility Start: 10-31-2023 End: 10-31-2023 ambulatory Waqas Pierce Other [facility] Other Start: 10-31-2023 Telephone encounter Waqas Pierce [facility] Start: 10-17-2023 Postop follow up vis it related to original px David Mcfarland II [facility] Start: 10-17-2023 End: 10-17-2023 ambulatory NON STAFF [facility] Work Phone: Start: 10-17-2023 End: 10-17-2023 Patient encounter procedure [facility] [place] [facility] Start: 10-15-2023 ([facility] RD FU) [facility] F/ U Registerd [employer] Stitcher Grecia Carrera [facility] Start: 10-15-2023 End: 10-15-2023 ambulatory Grecia Carrera Other [facility] Other Start: 10-15-2023 Registered [facility] Work Phone: Start: 10-02-2023 End: 10-02-2023 ambulatory Rolando Castellanos Other [facility] Other Start: 10-02-2023 Telephone encounter Rolando dhillon [facility] Start: 09-19-2023 End: 09-19-2023 ambulatory David Rdzle II Other [facility] Other Start: 09-19-2023 Postop follow up vis it related to original px Carrie Perea [facility] Start: 09-19-2023 Telephone encounter David Rdzle II [facility] Start: 09-18-2023 End: 09-18-2023 ambulatory Rolando Castellanos Other [facility] Other Start: 09-18-2023 Follow-up encounter Rolando dhillon [facility] Start: 09-17-2023 ([facility] RD FU) [facility] F/ U Registerd [employer] St[employer] Grecia Carrera [facility] Start: 09-17-2023 End: 09-17-2023 ambulatory Grecia Carrera Other [facility] Other Start: 09-10-2023 End: 09-10-2023 ambulatory David Bergenfield II Other [facility] Other Start: 09-10-2023 Telephone encounter David Bergenfield II [facility] Start: 09-03-2023 End: 09-03-2023 ambulatory David M Bergenfield II Facility:[facility] Start: 09-03-2023 End: 09-03-2023 Admission to same day surgery center MD Waqas Pierce Work Phone: [facility] [place] Start: 09-03-2023 End: 09-03-2023 ambulatory MD Waqas Pierce Work Phone: [facility] Work Phone: Start: 08-31-2023 (Prolonged) Prolonge d Services David [place]en[place] II [facility] Start: 08-31-2023 End: 08-31-2023 ambulatory David Bartolo II Other [facility] Other Start: 08-31-2023 Registered Recurring MD Waqas Pierce Work Phone: [facility] [place] Start: 08-30-2023 End: 08-30-2023 ambulatory David Bartolo II Other [facility] Other Start: 08-30-2023 Office outpatient vi sit 40 minutes David Bartolo II [facility] Start: 08-28-2023 End: 08-28-2023 ambulatory David M [place] II Facility:[facility] Start: 08-28-2023 End: 08-28-2023 ambulatory MD Waqas Pierce Work Phone: [facility] Work Phone: Start: 08-28-2023 End: 08-28-2023 Patient encounter procedure MD Waqas Pierce Work Phone: [facility] Work Phone: Start: 08-21-2023 End: 08-21-2023 ambulatory Waqas Pierce Other [facility] Other Start: 08-21-2023 Encounter for other preprocedural examination Waqas Pierce [facility] Start: 08-21-2023 Office outpatient vi sit 25 minutes Waqas Pierce [facility] Start: 08-15-2023 End: 08-15-2023 ambulatory David Mcfarland II Facility:[facility] Start: 08-15-2023 End: 08-15-2023 ambulatory MD Waqas Pierce Work Phone: [facility] Work Phone: Start: 08-15-2023 End: 08-15-2023 Patient encounter procedure MD Waqas Pierce Work Phone: [facility] Start: 08-13-2023 Registered Recurring MD Waqas Pierce Work Phone: [facility] Work Phone: Start: 08-13-2023 ([facility] RD FU) [facility] F/ U Registerd Vamp Stitcher Grecia Carrera [facility] Start: 08-13-2023 End: 08-13-2023 ambulatory David Mcfarland II [facility] Other Start: 08-06-2023 End: 08-06-2023 ambulatory David Mcfarland II Other [facility] Other Start: 08-06-2023 Telephone encounter David Mcfarland II [facility] Start: 08-01-2023 End: 08-01-2023 ambulatory Waqas Pierce Other [facility] Other Start: 08-01-2023 Telephone encounter Waqas Pierce [facility] Start: 07-31-2023 (Televisit) Televisit Waqas Pierce Christina [facility] Start: 07-31-2023 End: 07-31-2023 ambulatory Waqas Pierce Other [facility] Other Start: 07-26-2023 End: 07-26-2023 ambulatory Rolando Castellanos Other [facility] Other Start: 07-26-2023 Follow-up encounter Rolando [facility]hill[facility] Start: 07-26-2023 Telephone encounter David Mcfarland II [facility] Start: 07-23-2023 ([facility] RD FU) [facility] F/ U Registerd Vamp Stitcher Grecia Carrera [facility] Start: 07-23-2023 End: 07-23-2023 ambulatory Grecia Carrera Other [facility] Other Start: 07-16-2023 End: 07-16-2023 [facility] Start: 07-09-2023 End: 07-09-2023 ambulatory Rolando Castellanos Other [facility] Other Start: 07-09-2023 Telephone encounter Rolando dhill[facility] Start: 06-27-2023 End: 06-27-2023 ambulatory David Mcfarland II Other [facility] Other Start: 06-27-2023 Office outpatient vi sit 25 minutes David Mcfarland II [facility] Start: 06-19-2023 End: 06-19-2023 ambulatory Waqas Pierce Other [facility] Other Start: 06-19-2023 Telephone encounter Waqas Pierce [facility] Start: 06-18-2023 ([facility] RD FU) [facility] F/ U Registerd Vamp Stitcher Grecia Carlt [facility] Start: 06-18-2023 End: 06-18-2023 ambulatory Grecia Carlt Other [facility] Other Start: 06-14-2023 End: 06-14-2023 ambulatory Rolando Castellanos Other [facility] Other Start: 06-14-2023 Follow-up encounter Rolando Reyesdienrike Vasquez [facility] Start: 06-11-2023 End: 06-11-2023 ambulatory Waqas Pierce Other [facility] Other Start: 06-11-2023 Encounter for genera l adult medical examination without abnormal findings Waqas Pierce [facility] Start: 06-11-2023 Periodic preventive med est patient 40-64yrs Waqas Pierce [facility] Start: 06-01-2023 End: 06-01-2023 ambulatory Waqas Kari Other [facility] Other Start: 06-01-2023 Telephone encounter Waqas Pierce [facility] Start: 05-28-2023 End: 05-28-2023 ambulatory Waqas Pierce Other [facility] Other Start: 05-28-2023 Telephone encounter Waqas Pierce [facility] Start: 05-14-2023 ([facility] RD FU) [facility] F/ U Registerd Vamp Stitcher Grecia Henryt [facility] Start: 05-14-2023 End: 05-14-2023 ambulatory Grecia Carlt Other [facility] Other Start: 04-16-2023 ([facility] RD FU) [facility] F/ U Registerd Vamp Stitcher Grecia Carrera [facility] Start: 04-16-2023 End: 04-16-2023 ambulatory Grecia Carlt Other [facility] Other Start: 03-28-2023 ambulatory NON STAFF Facility:[facility] Start: 03-21-2023 End: 03-21-2023 ambulatory Waqas Pierce Other [facility] Other Start: 03-21-2023 Telephone encounter Waqas Pierce [facility] Start: 02-22-2023 ambulatory MER RASHEED SHAWANDA . Facil ity:H1 Start: 02-13-2023 End: 02-14-2023 ambulatory AMY Iverson [facility] Facility:H1 Start: 01-31-2023 End: 01-31-2023 ambulatory Waqas Pierce Other [facility] Other Start: 01-31-2023 Telephone encounter Waqas Pierce [facility] Start: 01-30-2023 End: 01-31-2023 ambulatory AMY Iverson [facility] Facility:H1 Start: 01-19-2023 End: 01-20-[address] ROLANDO CASTELLANOS Facility:H1 Start: 01-11-2023 ([facility] WMNI) WMN Init ial Provider Grecia Carrera [facility] Start: 01-11-2023 End: 01-11-2023 ambulatory Grecia Carrera Other [facility] Other Start: 01-09-2023 End: 01-10-2023 ambulatory AMY Iverson [facility] Facility:H1 Start: 12-25-2022 End: 12-25-2022 ambulatory Junior Mcgowan Other [facility] Other Start: 12-25-2022 Telephone encounter [facility] Start: 12-22-2022 End: 12-23-2022 ambulatory AMY D [facility] Facility:H1 Start: 12-18-2022 End: 12-18-2022 ambulatory Junior Mcgowan Other [facility] Other Start: 12-18-2022 Telephone encounter Junior King [facility] Start: 12-15-2022 End: 12-15-2022 ambulatory Waqas Pierce Other [facility] Other Start: 12-15-2022 Telephone encounter Waqas Pierce [facility] Start: 12-12-2022 Telephone encounter Rolando dhill[facility] Start: 12-12-2022 End: 12-13-[address] WAQAS PIERCE [place] [email or web address] Other Start: 12-06-2022 Telephone encounter Waqas Pierce [facility] Start: 12-06-2022 End: 12-07-2022 ambulatory Efrain CORTES [facility] Other Start: 12-01-2022 End: 12-02-[address] WAQAS PIERCE Facility: Start: 11-20-2022 End: 11-20-2022 ambulatory Rolando Castellanos Other [facility] Other Start: 11-20-2022 Telephone encounter Rolando Vasquez [facility] Start: 11-17-2022 Telephone encounter Waqas Pierce [facility] Start: 11-17-2022 End: 11-18-[address] WAQAS PIERCE [facility] Other Start: 11-16-2022 End: 11-16-2022 ambulatory Rolando Castellanos Other [facility] Other Start: 11-16-2022 Follow-up encounter Rolando dhillon [facility] Start: 11-14-2022 End: 11-14-2022 ambulatory Grecia Henryt Other [facility] Other Start: 11-14-2022 IBT FOR OBESITY GROU P 2-10 30M Grecia Carrera [facility] Start: 11-13-2022 End: 11-13-2022 ambulatory Waqas Pierce Other [facility] Other Start: 11-13-2022 Telephone encounter Waqas Pierce [facility] Start: 11-08-2022 End: 11-09-2022 ambulatory Efrain CORTES Facility:[facility] Start: 11-08-2022 End: 11-08-2022 Patient encounter procedure Efrain Vaz SOPHIA [facility] [place] Start: 11-06-2022 End: 11-07-[address] WAQAS PIERCE Facility:H1 Start: 11-05-2022 Encounter for gynecological examination (general) (routine) without abnormal findings DR FRIEDA LOCKE . [facility] Start: 11-03-2022 End: 11-04-[address] WAQAS PIERCE Facility:H1 Start: 10-30-2022 End: 10-31-[address] WAQAS PIERCE Facility: Start: 10-25-2022 End: 10-25-2022 ambulatory aWqas Pierce Other [facility] Other Start: 10-25-2022 Telephone encounter Waqas Pierce [facility] Start: 10-24-2022 End: 10-24-2022 ambulatory Rolando Castellanos Other [facility] Other Start: 10-24-2022 Telephone encounter Rolando Castellanos [facility] Start: 10-23-2022 Office outpatient vi sit 15 minutes Waqas Pierce [facility] Start: 10-23-2022 Telephone encounter Waqas Pierce [facility] Start: 10-23-2022 End: 10-24-2022 ambulatory NON STAFF [facility] Work Phone: Start: 10-23-2022 End: 10-23-2022 Departed Referred [facility] [place] Work Phone: Start: 10-20-2022 End: 10-20-2022 ambulatory Waqas Pierce Other [facility] Other Start: 10-20-2022 Telephone encounter Waqas Pierce [facility] Start: 10-17-2022 End: 10-18-[address] WAQAS PIERCE Facility:H1 Start: 10-13-2022 End: 10-13-2022 ambulatory Rachel Vela Other [facility] Other Start: 10-13-2022 Nutrition therapy Rachel Vela [facility] Start: 10-13-2022 [address] Rachel Vela [facility] Start: 10-13-2022 Registered Recurring [facility] Work Phone: Start: 10-10-2022 End: 10-11-[address] WAQAS PIERCE Facility:H1 Start: 10-06-2022 End: 10-06-2022 ambulatory Waqas Pierce Other [facility] Other Start: 10-06-2022 Telephone encounter Waqas Pierce [facility] Start: 10-04-2022 (Procedure) Short Junior Mcgowan [facility] Start: 10-04-2022 End: 10-04-2022 ambulatory Junior Mcgowan Other [facility] Other Start: 10-03-2022 End: 10-04-[address] WAQAS PIERCE [facility] Other Start: 10-03-2022 Telephone encounter Junior [facility] [place] Start: 09-27-2022 End: 09-27-2022 ambulatory Junior Mcgowan Other [facility] Other Start: 09-27-2022 Telephone encounter Junior King [facility] Start: 09-19-2022 End: 09-20-[address] WAQAS PIERCE Facility:[facility]1 Start: 09-11-2022 End: 09-12-[address] WAQAS PIERCE Facility:[facility]1 Start: 09-06-2022 End: 09-06-2022 Patient encounter procedure [facility] Start: 09-06-2022 End: 09-06-2022 ambulatory NON STAFF [facility] Work Phone: Start: 09-06-2022 FQHC visit new patient David davalos II [facility] Start: 09-06-2022 End: 09-06-2022 [facility] Start: 08-28-2022 End: 08-29-[address] WAQAS PIERCE Facility:[facility]1 Start: 08-18-2022 Adult health examination Grecia Fitt Other [facility] Other Start: 08-18-2022 Gynecological examination normal Grecia Fitt Other [facility] Other Start: 08-18-2022 End: 08-19-[address] [...] Facility:[facility]1 Start: 04-25-2022 End: 04-25-2022 ambulatory ELICEO JEFFERY . Facility:[facility]1 Start: 04-25-2022 Encounter for other preprocedural examination AMY KASPER [facility] Start: 04-24-[address] WAQAS PIERCE [facility] ity:H1 Start: 04-22-2022 End: 04-25-2022 Evaluation and [...] PIERCE Facility:H1 Start: 07-26-2021 Pre-procedure evalua tion nati Carrera Other [facility] Other Start: 07-25-2021 Office outpatient vi sit 15 minutes Mallory Yuen [facility] Start: 06-23-2021 Office outpatient vi sit 25 minutes Junior Mcgowan [facility] [place] Start: 06-23-2021 Telephone encounter [facility] Start: 12-16-2020 End: 12-17-2020 ambulatory REFERRED SELF Facility:[facility] Procedures Date Procedure Procedure Detail Performing Clinician Start: 10-17-2023 Plain X-ray of right hip Start: 09-03-2023 Plain X-ray of right hip MD Waqas Pierce Work Phone: Start: 09-03-2023 Total replacement of right hip joint MD Waqas Pierce Work Phone: Start: 09-03-2023 Plain X-ray of right hip MD Waqas Pierce Work Phone: Start: 08-28-2023 Antibody screen David Mcfarland II Comment on above: Order Comment: Date of Surgery: [id number] Result Comment: PERF ORMED BY: [facility] [place] [address] PATHOLOGIST [employer] MANUFACTURER SUAD ARREAGA M.D. Start: 08-28-2023 Urine culture MD Waqas Pierce Work Phone: Start: 08-15-2023 Plain X-ray of right hip MD Waqas Pierce Work Phone: Start: 10-23-2022 Urine culture Start: 09-06-2022 Plain X-ray of right hip Start: 04-24-2022 Excision of Left Tarsal, Open Approach DR WAQAS PIERCE Start: 04-24-2022 Insertion of Tissue Athletic Instructor into Left Foot Subcutaneous Tissue and Fascia, Open Approach DR WAQAS PIERCE Start: 04-24-2022 Removal of Internal Fixation Device from Left Tarsal, Open Approach DR WAQAS PIERCE Start: 04-24-2022 Replacement of Left Foot Skin with Nonautologous Tissue Substitute, Full Thickness, External Approach DR WAQAS PIERCE Start: 12-16-2020 ANESTH LOWER ARM SURGERY JUDSON ALVARADO Start: 12-16-2020 Tendon sheath incision DAVID LR Start: 10-01-2020 Varicose veins of left lower limb (disorder) Efrain CORTES Comment on above: procedure Start: 09-08-2020 Esophagogastroduodenoscopy Efrain CORTES Start: 12-04-2016 Laboratory test result abnormal Grecia Fit t Other Arthroplasty Efrain CORTES Comment on above: left hip Bilateral bone spur of calcaneum (disorder) Efrain CORTES Decompression of median nerve Efrain RABAGOSharan Comment on above: left wrist Fasciotomy of foot Efrain Card MARGO 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 Francis CORTES Inject trigger finger/thumb Efrain SOPHIA Laboratory test result abnormal Waqas Pierce Other Screening for malign ant neoplasm of breast Grecia Fitt Other Screening for osteoporosis D awn Fitt Other Tonsillectomy and adenoidectomy Efrain CORTES Plan of Treatment Date Care Activity Detail Author Start: 09-03-2023 Hospital admission [facility] Start: 09-03-2023 End: 09-03-2023 [facility] Start: 09-03-2023 Physical therapy procedure [facility] Start: 08-28-2023 [facility] Start: 08-28-2023 Bacteria identified in Urine by Culture [facility] Bacteria identified in Urine by Culture [facility] Immunizations Immunization Date Immunization Notes Care Provider Fa cility 08-31-2022 COVID-19 (Pfizer) Bivalent Booster, Age 12Y+ [facility] 08-31-2022 influenza virus vaccine, unspecified formulation Efrain SOPHIA [facility] [place] 08-31-2022 SARS-CoV-2 (COVID-19 ) [id number] Efrain CORTES [facility] [place] 02-24-2022 COVID-19 (Pfizer); Translations: [COVID-19 (Pfizer)] MD Waqas Pierce Work Phone: [facility] 02-24-2022 SARS-CoV-2 mRNA (maxilspdhhx-sxos-fspsp se) vaccine Efrain CORTES [facility] [place] 08-19-2021 COVID-19 (Pfizer) [facility] 08-19-2021 SARS-CoV-2 (COVID-19 ) mRNA BNT-162b2 [facility] [place] 01-19-2021 COVID-19 (Pfizer) [facility] 01-19-2021 SARS-CoV-2 (COVID-19 ) mRNA BNT-162b2 [facility] [place] 12-31-2020 COVID-19 (Pfizer) [facility] 12-31-2020 SARS-CoV-2 (COVID-19 ) mRNA BNT-162b2 [facility] 06-25-2020 influenza virus vaccine, split virus (incl. purified surface antigen) Grecia Carrera Other [facility] Other 06-25-2020 pneumococcal polysaccharide vaccine, 23 valent Grecia Carrera Other [facility] Other Payers Date Payer Category Payer Self-pay [id number] Unknown [id number] 2.840.1.878166.3.579.2.647 1960 Unknown [id number] 840.1.516556.3.579.2.727 1962 Unknown [id number] 2.840.1.846702.3.579.2.727 1962 Unknown [id number] 2.16840.1.347478.3.579.2.593 1962 Unknown [id number] 2.840.1.450601.3.579.2.593 1962 Unknown [id number] 2.840.1.678916.3.579.2.593 1962 Unknown [id number] 2.16.840.1.545407.3.579.2.593 1962 Unknown [id number] 2.16.840.1.170753.3.579.2.593 1962 Unknown [id number] 2.16.840.1.559971.3.579.2.593 1962 Unknown [id number] 2.16.840.1.063305.3.579.2.593 1962 Unknown [id number] 2.16.840.1.863247.3.579.2.593 1962 Unknown [id number] 2.16.840.1.934993.3.579.2.593 1962 Unknown [id number] 2.16.840.1.132404.3.579.2.593 1962 Unknown [id number] 2.16.840.1.469068.3.579.2.593 1962 Unknown [id number] 2.16.840.1.059944.3.579.2.593 1962 Unknown [id number] 2.16.840.1.185449.3.579.2.593 1962 Unknown [id number] 2.16.840.1.313359.3.579.2.593 1962 Unknown [id number] 2.16.840.1.711749.3.579.2.593 1962 Unknown [id number] 2.16.840.1.867252.3.579.2.593 1962 Unknown [id number] 2.16.840.1.892314.3.579.2.593 1962 Unknown [id number] 2.16.840.1.573507.3.579.2.593 1962 Unknown [id number] 2.16.840.1.938978.3.579.2.593 1962 Unknown [id number] 2.16.840.1.074484.3.579.2.593 1962 Unknown [id number] 2.16.840.1.671953.3.579.2.593 1962 Unknown [id number] 2.16.840.1.181847.3.579.2.593 1962 Unknown [id number] 2.16.840.1.444902.3.579.2.593 1962 Unknown [id number] 2.16.840.1.511373.3.579.2.593 1962 Unknown [id number] 2.16.840.1.596573.3.579.2.593 1962 Unknown [id number] 2.16.840.1.216502.3.579.2.593 1962 Unknown [id number] 2.16.840.1.037833.3.579.2.593 1962 Unknown [id number] 2.16.840.1.530954.3.579.2.593 1962 Unknown [id number] 2.16.840.1.808895.3.579.2.593 1962 Unknown [id number] 2.16.840.1.879139.3.579.2.593 1962 Unknown [id number] 2.16.840.1.396349.3.579.2.593 1962 Unknown [id number] 2.16.840.1.575864.3.579.2.593 1962 Unknown [id number] 2.16.840.1.536058.3.579.2.593 1962 Unknown [id number] 2.16.840.1.564190.3.579.2.593 1962 Unknown [id number] 2.16.840.1.832509.3.579.2.593 1962 Unknown [id number] 2.16.840.1.254881.3.579.2.593 1962 Unknown [id number] 2.16.840.1.417774.3.579.2.593 1962 Unknown [id number] 2.16.840.1.573207.3.579.2.593 1962 Unknown [id number] 2.16.840.1.678674.3.579.2.593 1962 Unknown [id number] 2.16.840.1.148998.3.579.2.593 1962 Unknown [id number] 2.16840.1.954188.3.579.2.593 1962 Unknown [id number] 2.840.1.086736.3.579.2.593 1962 Unknown [id number] 2.840.1.801418.3.579.2.593 1959 Unknown [id number] 2.. 840.1.446096.19 1959 Unknown [id number] Unknown [id number] 2.16840.1.017614.3.579.2.531 Unknown [id number] 2.16840.1.940099.3.579.2.531 Unknown [id number] 2.16840.1.421460.3.579.2.531 Unknown [id number] 2.16840.1.711344.3.579.2.531 Unknown [id number] 2.16.840.1.603438.3.579.2.531 Worker's Compensation [id number] Worker's Compensation [facility] [id number] Social History Date Type Detail Facility Unknown if ever smoked [facility] Other Sex Assigned At [facility] Start: 1960 Sex Assigned At Female [facility] Start: 11-08-2022 End: 09-03-2023 Tobacco smoking status Ex-smoker (finding) [facility] [place] Comment on above: smoked one year, souleymane t 30 years ago Tobacco smoking status Never Gener [facility] [place] Comment on above: smoked one year, souleymane t 30 years ago Medical Equipment Procedure Code Equipment Code Equipment Origin al Text Equipment Identifier Dates Arthroplasty, hip, total, anterior approach Acetabular shell ()[id number] FDA Start: 09-03-2023 Arthroplasty, hip, total, anterior approach Ceramic femoral head prosthesis ()[id number] FDA Start: 09-03-2023 Arthroplasty, hip, total, anterior approach Coated hip femur prosthesis, modular ()[id number] FDA Start: 09-03-2023 Arthroplasty, hip, total, anterior approach Non-constrained polyethylene acetabular liner ()[id number] FDA Start: 09-03-2023 Start: 02-13-2023 Goals Date Patient Goal Desired Activity /State Functional Status Date Assessment Result Facility 11-08-2022 Functional Status N/A [facility] onelia Hernandez Clinical Notes 06-23-2021 to 10-17-2023 Note Date & Type Note Facility 10-17-2023 Evaluation note Encounter Date Diagnosis Assessment Notes Oct, Aftercare following joint replacement surgery (ICD-10 - Z47.1) Oct, Presence of right artificial hip joint (ICD-10 - Z96.641) Oct, Other [facility] on 09/03/2023 Doing well Patient may continue increasing activities as tolerated. Continue taking pjuf-gem-olcxs er anti-inflammat ories as needed for assistance with swelling and pain associated with the operative extremity. Follow-up in 6 weeks for repeat examination and repeat x-rays. [facility] Other 01-15-2024 Evaluation note* Encounter Date Diagnosis Assessment Notes Treatment Notes Treatment Clinical Notes Oct, Obesity (ICD-10 - E66.9) Oct, BMI 40.0-44.9, adult (ICD-10 - Z68.41) Oct, Other Summary of Visi t: (A) Discussed including more vegetables (B) Discussed plant proteins (C) Provided recipes [facility] Other 01-02-2024 Evaluation note* Encounter Date Diagnosis Assessment Notes Treatment Notes Treatment Clinical Notes Oct, Hypothyroidism (ICD-10 - E03.9) [facility] Other 12-20-2023 Evaluation note* Encounter Date Diagnosis [...] right artificial hip joint (ICD-10 - Z96.641) [facility] Other 12-19-2023 Evaluation note* Encounter Date Diagnosis [...] Aug, Metabolic syndrome X (ICD-10 - E88.81) [facility] Other 12-18-2023 Evaluation note* Encounter Date Diagnosis Assessment Notes Treatment Notes Treatment Clinical Notes Aug, Obesity (ICD-10 - E66.9) Aug, BMI 40.0-44.9, adult (ICD-10 - Z68.41) Aug, Other Summary of Visi t: (A) Discussed including more vegetables (B) Answered general nutrition-related questions (C) DIscussed options for including more water [facility] Other 12-01-2023 Evaluation note* Encounter Date Diagnosis [...] patient could proceed with surgery safely. The systems program manager was vital for surgery timing and [...] plans. Prolonged services time spent: 31 minutes [facility] Other 11-30-2023 Evaluation note* Encounter Date Diagnosis [...] therapy arrives. Joints Meeting Checklist - Pharmacy: [facility] to bed - Approach/Technique: anterior, Townsend bed - Implants: Avenir Complete/G7; - Anesthesia: general vs spinal - Blocks: Fascia iliaca - Preop Antibiotics: Ancef and Vanco - TXA: yes-systemic - Positioning/OR Bed: supine on Townsend bed - Intraop X-ray: yes - Alejandra: [...] above surgery. OARRS report generated and reviewed. [facility] Other 11-21-2023 Evaluation note* Encounter Date Diagnosis [...] symptoms. Any developing patterns. Stay well hydrated. [facility] Other 11-13-2023 Evaluation note* Encounter Date Diagnosis Assessment Notes Treatment Notes Treatment Clinical Notes Aug, Obesity (ICD-10 - E66.9) Aug, BMI 40.0-44.9, adult (ICD-10 - Z68.41) Aug, Other Summary of Visi t: (A) Continue current regimen (B) Much emotional support provided today (C) Encouraged continued follow up with counselor [facility] Other 10-31-2023 Evaluation note* Encounter Date Diagnosis Assessment Notes Treatment Notes Treatment Clinical Notes Jul, Acute laryngitis (ICD-10 - J04.0) Patient denies bacterial infection symptoms such as fever facial pressure or chills. Patient has not taken a COVID test. Discussed ggiw-kdk-kidkgwu medications to use along with steroid pills that can improve her discomfort and laryngitis going forward. Advised that the steroids could elevate her blood sugar and to be mindful of that accordingly. [facility] Other 10-26-2023 Evaluation note* Encounter Date Diagnosis [...] Jul, Metabolic syndrome X (ICD-10 - E88.81) [facility] Other 10-26-2023 Evaluation note* Encounter Date Diagnosis Assessment Notes Treatment Notes Treatment Clinical Notes Jul, Other halfway (current) drug therapy (ICD-10 - Z79.899) Jul, Other osteoporosis without current pathological fracture (ICD-10 - M81.8) Jul, Osteoarthritis of right hip (ICD-10 - M16.11) [facility] Other 10-23-2023 Evaluation note* Encounter Date Diagnosis Assessment Notes Treatment Notes Treatment Clinical Notes Jul, Obesity (ICD-10 - E66.9) Jul, BMI 40.0-44.9, adult (ICD-10 - Z68.41) Jul, Other Summary of Visi t: (A) Continue current regimen (B) Discussed ways to include more water (C) Discussed ways to include more vegetables [facility] Other [id number] NoteShe admits intermittent orthostasis when she is bending over working in the yard and upon standing she gets lightheaded and dizzy. Denies syncope and admits that she is chronically dehydrated and does not drink enough. Therefore recommended at least 2 L of water per day, can intermittently have electrolyte replacement drinks like Gatorade or Powerade or Pedialyte she voiced understandingUnChildren[facility]10-16-2023 NoteShe is working on weight loss with her PCP and student services director.[facility] 07-16-2023 NoteStable with metoprolol 25 mg dailyUnChildren's Hospital of [facility]10-16-2023 NoteContinue atorvastatin 20 mg Liver function normal, cholesterol and LDL levels well controlled in light she does not have CAD.[facility]10-16-2023 NoteUTP CARDIOLOGY PROGRESS NOTE HPI: Nicol Smith [...] TABLET BY MOUTH TWICE DAILY NEEDED HYDROcodone-acetaminophen (Narka) 5-325 mg tablet hydrocodone 5 mg-acetaminophen 325 [...] on weight loss with her PCP and student services director. Orthostasis She admits intermittent orthostasis when she is bending over working in the yard and upon standing she gets lightheaded an (more content not included)... [facility]10-16-2023 NotePatient here c/o dizziness only with bending [...] weakness. All other systems reviewed and are negative.[facility] 06-27-2023 Evaluation note* Encounter Date Diagnosis Assessment [...] the patient works on weight loss management. [facility] Other 09-18-2023 Evaluation note* Encounter Date Diagnosis Assessment Notes Treatment Notes Treatment Clinical Notes Jun, Obesity (ICD-10 - E66.9) Jun, BMI 40.0-44.9, adult (ICD-10 - Z68.41) Jun, Other Summary of Visi t: (A) Discussed quick, low prep veggie ideas (B) Plan ahead for busy days (C) Keep meal ideas available GOALS: Write meal ideas on index cards Have go-to fast food meals available that fit the plate method [facility] Other 09-14-2023 Evaluation note* Encounter Date Diagnosis Assessment Notes Treatment Notes Treatment Clinical Notes Jun, Prediabetes (ICD-10 - R73.09) Jun, BMI 40.0-44.9, adult (ICD-10 - Z68.41) Jun, Hypothyroidism (ICD-10 - E03.9) Jun, Hypertension (ICD-10 - I10) Jun, Fatty liver (ICD-10 - K76.0) Jun, HERRERA (obstructive sleep apnea) (ICD-10 - G47.33) Jun, Mixed hyperlipidemia (ICD-10 - E78.2) Jun, Depression (ICD-10 - F32.9) Jun, Low back derangement syndrome (ICD-10 - M53.86) Jun, Hip arthritis (ICD-1 0 - M16.10) Jun, Palpitations (ICD-10 - R00.2) Jun, GERD (gastroesophageal reflux disease) (ICD-10 - K21.9) Jun, Metabolic syndrome X (ICD-10 - E88.81) [facility] Other 09-11-2023 Evaluation note* Encounter Date Diagnosis [...] E55.9) discussed supplementation. will check D level. [facility] Other 08-28-2023 Evaluation note* Encounter Date Diagnosis Assessment Notes Treatment Notes Treatment Clinical Notes May, Hypothyroidism (ICD-10 - E03.9) [facility] Other 08-14-2023 Evaluation note* Encounter Date Diagnosis Assessment Notes Treatment Notes Treatment Clinical Notes May, Obesity (ICD-10 - E66.9) May, BMI 40.0-44.9, adult (ICD-10 - Z68.41) May, Other Summary of Visi t: (A) Discussed cooking various foods (B) Find control in indulgences (C) Reviewed the plate method [facility] Other 07-17-2023 Evaluation note* Encounter Date Diagnosis Assessment Notes Treatment Notes Treatment Clinical Notes Mar, Obesity (ICD-10 - E66.9) Mar, BMI 40.0-44.9, adult (ICD-10 - Z68.41) Mar, Other Summary of Visi t: (A) Discussed cooking various foods (B) Find control in indulgences (C) emphasize self-care [facility] Other 05-17-2023 NotePROCEDURE: XR FOOT LT MIN [...] Electronically authenticated by: ARIELA SCHWAB Date: 2023-02-14 06:48[facility]04-13-2023 Evaluation note* Encounter Date Diagnosis [...] 2. Increase veggies, follow the plate method [facility] Other 03-14-2023 Evaluation note* Encounter Date Diagnosis Assessment Notes Treatment Notes Treatment Clinical Notes Nov, Abnormal laboratory test result (ICD-10 - R89.9) [facility] Other 03-08-2023 NoteOPERATIVE NOTE OPERATION DATE: 12/06/2022 [...] in 10 years. CC: Waqas Pierce M.D.[id number] Evaluation note* Encounter Date Diagnosis Assessment Notes [...] - M16.10) Nov, Hypertension (ICD-10 - I10) [facility] Other 02-14-2023 Evaluation note* Encounter Date Diagnosis [...] patient set personal goal using given handout. [facility] Other 02-08-2023 NoteChief Complaint consultation for colonoscopy [...] Years., 11/08/2022 Family History (more content not included)...[facility] SystemComment on above:Result Comment: Electronically Signed By: SOPHIA PINEDA, Efrain Layne\Date and Time Signed: 11/08/22 15:29 [id number] Evaluation note* Encounter Date Diagnosis Assessment Notes [...] - G47.33) presently compliant with machine, etc [facility] Other 01-13-2023 Evaluation note* Encounter Date Diagnosis [...] Patient is interested in meeting with our continuous improvement director, telephone encounter started to connect with her [...] the week. Encouraged to take advantage of continuous improvement director available at [facility] that can help work around limitations. She is open to meeting with our continuous improvement director for guidance on exercises she can complete with her severe limitations from her foot, hip and back. Telephone encounter started. Oct, Plantar fasciitis (ICD-10 - M72.2) Oct, Arthritis of hip (ICD-10 - M16.10) Oct, Impaired fasting glucose (ICD-10 - R73.01) [facility] Other 12-07-2022 Evaluation note* Encounter Date Diagnosis [...] while she works on her weight loss. [facility] Other 12-07-2022 NoteUTP CARDIOLOGY PROGRESS NOTE HPI: [...] 1 TABLET BY MOUTH TWICE DAILY HYDROcodone-acetaminophen (Narka) 5-325 mg tablet hydrocodone 5 mg-acetaminophen 325 [...] return to cardiology as needed. This is reasonable.[facility]12-07-2022 NoteContinue lipitor [facility]12-07-2022 NoteContinue [facility]12-07-20[facility]Con[facility]22 NotePROCEDURE: XR HIP RT 2 3V [...] Electronically authenticated by: SHAWNEE KELLY Date: 2022-08-18 15:54[facility]11-18-2022 NotePROCEDURE: XR FOOT LT MIN [...] Electronically authenticated by: SHAWNEE KELLY Date: 2022-08-18 15:42[facility]09-16-2022 NotePROCEDURE: XR FOOT LT MIN [...] Electronically authenticated by: SHAWNEE KELLY Date: 2022-06-16 16:24[facility]09-16-2022 NotePROCEDURE: XR FOOT LT MIN [...] Electronically authenticated by: SHAWNEE KELLY Date: 2022-06-16 16:24[facility]08-11-2022 NotePROCEDURE: XR FOOT LT MIN [...] Electronically authenticated by: SHAWNEE KELLY Date: 2022-05-11 17:16[facility]07-25-2022 NotePROCEDURE: XR FOOT LT MIN [...] Electronically authenticated by: ARIELA SCHWAB Date: 2022-04-24 14:11[facility]07-25-2022 NotePROCEDURE: XR FOOT LT 2V [...] Electronically authenticated by: ARIELA SCHWAB Date: 2022-04-24 11:54[facility] [id number] NotePROCEDURE: XR FOOT LT MIN 3 VIEWS [...] Electronically authenticated by: ARIELA SCHWAB Date: 2022-04-22 20:52[facility] [id number] NotePROCEDURE: XR FOOT LT MIN 3 VIEWS [...] Electronically authenticated by: SHAWNEE KELLY Date: 2022-04-14 17:03[facility]10-25-2021 Evaluation note* Encounter Date Diagnosis [...] Patient care instructions given in writting by [facility] document. [facility] Other 09-23-2021 Evaluation note* Encounter Date Diagnosis Assessment Notes [...] note writ ten by Safia Calderon CMA, [employer]. Edited and approved by Dr. Junior Mcgowan MD. [facility] Other Evaluation + Plan note No data available for this section General Surgery [place] Evaluation noteNo InformationNort [email or web address] Other Evaluation noteNo assessment information available [facility] Work Phone: History general Narrative - Reported* Type Description Date Medical History DDD (degenerative disc disease), lumbar Surgical History hip replacement Surgical History tonsillectomy Surgical History carpal tunnel release bilateral Hospitalization History see above [facility] Other [facility] Narrative - Reported* Type Description Date Medical History DDD (degenerative disc disease), lumbar Medical History spinal stenosis Surgical History hip replacement Surgical History tonsillectomy Surgical History carpal tunnel release bilateral Surgical History vein ablasion Hospitalization History see above [facility] Other [facility] Narrative - Reported* Type Description Date Medical History DDD (degenerative disc disease), lumbar Medical History spinal stenosis Surgical History hip replacement Surgical History tonsillectomy Surgical History carpal tunnel release bilateral Surgical History vein ablasion Surgical History skin graft left foot Hospitalization History see above [facility] Other [facility] Narrative - Reported* Type Description Date [...] x3 202 2 Hospitalization History see above [facility] Other [facility] Narrative - Reported* Type Description Date [...] HIp replacement 09/03/23 Hospitalization History see above [facility] Other Hospital Discharge instructions No data available for this section [facility] Discharge instructions Additional Instructions Joint Replacement Discharge Instructions Your safety during your recovery process is important to us. Please seek immediate emergency care if you have sudden chest pain or shortness of breath. Additionally, please call our office at [phone] should any of the following occur: wound [...] or it could last forever. JANELL hose (denverinette): Wear them for 4 weeks on the operative side and 2 weeks on the nonoperative side. Try to wear these as 24/7 as possible to help decrease swelling. Weight Bearing, Walkers, and Canes: Do not remove your knee immobilizer. Do not walk without this until your therapist has removed it either on the first day after surgery or the second day after surgery. Do not attempt to walk without your walker and your healthcare technician until the therapist checks you the following [...] and/or laxatives as directed. You may take wrxb-vmv-sarpvti Benadryl if itching occurs without a rash or hives. Icing and elevation will help relieve pain as well, do not underestimate the power of ice and elevation. We do recommend that you stop taking narcotic pain medications by 4-6 weeks after surgery and if necessary, continue to use anti-inflammatory medications such as Mobic (meloxicam), Celebrex (celecoxib), or an myfu-ztf-yvpmrst medication (Aleve, Motrin, Ibuprofen, etc). Driving an [...] feel free to call our office at [phone]. You are a priority of ours and we will not be upset with you if you call. We would much rather you call to confirm aspects of your recovery process as opposed to possibly hindering your recovery with inappropriate care. We are committed to providing you with the best care possible. David Mcfarland II, MD Updated 12/15/2022[facility] Work Phone: Progress note No data available for this section General Surgery [place] Reason for referral (narrative)* Reason Appt: Diagnosis 1 Depression (F32.9) Referral Organization [facility] Referring Provider First Name Rolando Referring Provider Last Name Jasmin Referring Provider Specialty Internal Me dicine Referred Organization [facility] [place] Referred Address [address] [place], [place],[address] Referred Provider Specialty Miscellaneou s Referral Priority Routine General Notes Anna Jose 2022 01:07:39 PM >Please contact patient to schedule. [facility] Other Summary Purpose Family History Relationship Condition Age at Onset Recorded Date/T eryna father Diabetes mellitus Unknown Congestive heart failure [...] and content) DATE CREATED AUTHOR 04/29/2021 [facility] DATE CREATED AUTHOR AUTHOR'S ORGANIZ ATION 12/20/2022 [place] [facility] DATE CREATED AUTHOR AUTHOR'S ORGANIZ ATION 03/09/2023 [facility] DATE CREATED AUTHOR AUTHOR'S ORGANIZ ATION 07/16/[address] [facility] DATE CREATED AUTHOR AUTHOR'S ORGANIZ ATION 10/18/2023 [facility] REASON FOR VISIT (unrecogniz ed section [...] Heatherprescription refillInitial WMNurine cultureBladder Infection/ Possible HerniaDC VoicemaRegency Hospital [facility] West LabsmessageHM fax lab requestre-certR INTRA ARTICULAR HIP [...] BE BASED ON THE PRIMARY CLINICAL RECORDS. [facility] [employer] provides no warranty or guarantee of the accuracy or completeness of information in this document.
--- NOTE | 2023-11-05 10:49 | MM_ITS ---
Patient Name: NAVARRO SMITH MR#: [id number] : 1960 Exam Date: 11/05/2023 Ordering Doctor: DR Uday Wray . RADIOLOGY REPORT PROCEDURE: MM TOMOSYNTHESIS SCREENING BI COMPARISON: MG MAMM SCREEN 3D BONNIE CAD, 11/03/2022. MG MAMM SCREEN 3D BONNIE CAD, 10/31/2021. INDICATIONS: screening Calculator Name NCI Breast Cancer Risk Assessment Tool 5 Year Breast Cancer Risk 1.50% Lifetime Breast Cancer Risk 7.20% Personal Breast Cancer No Personal Ovarian Cancer No Treatments None Family Cancers Grandmother-maternal with uterine cancer at age ~50. LOCATION: [facility] BREAST COMPOSITION: Scattered areas fibroglandular density. FINDINGS: DIAGNOSTIC CATEGORY 2--BENIGN FINDING. NO CHANGE FROM COMPARISON. Scattered benign-appearing lymph nodes are present. Scattered benign-appearing calcifications are present. RIGHT BREAST: No significant suspicious finding. LEFT BREAST: No significant suspicious finding. RECOMMENDATIONS: ROUTINE MAMMOGRAM AND CLINICAL EVALUATION IN 12 MONTHS. PLEASE NOTE: A NORMAL MAMMOGRAM DOES NOT EXCLUDE THE POSSIBILITY OF BREAST CANCER. A CLINICALLY SUSPICIOUS PALPABLE LUMP SHOULD BE BIOPSIED. Dictated by: Edison Kelly MD on 11/05/2023 at 11:55 Approved by: Edison Kelly MD on 11/05/2023 at 11:56
== END 2023-11-05 10:46 | disposition home or self-care (01) ==
LOC: MAMMO 10:45
PROVIDERS: PCP Family Medicine; Visit Provider Obstetrics & Gynecology
DX: Z12.31 Encounter for screening mammogram for malignant neoplasm of breast (principal); Z80.49 Family history of malignant neoplasm of other genital organs
CPT/HCPCS: 77063; 77067

== ENCOUNTER 2023-12-26 10:16 | Outpatient (OUT) | payer OTHER, SELFPAY ==
--- NOTE | 2023-12-26 10:25 | XR_ITS ---
The [address] [address] Patient Name: NAVARRO SMITH MRN: [id number] date: 1960 Sex: F Assigned Patient Location: [facility] Current Patient Location: [facility] Accession/Order Number: [id number] Exam Date: 12/26/2023 10:32 Report Date: 12/26/2023 12:12 At the request of: SOTO TOLENTINO Procedure: XR chest 2V EXAM: XR chest 2V HISTORY: Chest Congestion, Cough COMPARISON: None. TECHNIQUE: PA and lateral views of the chest. FINDINGS: The cardiomediastinal silhouette is normal. No focal consolidation is identified. There is no pneumothorax. No pleural effusion is noted. The osseous structures are intact. XR/XR chest 2V IMPRESSION: No acute cardiopulmonary process. Esophageal hiatal hernia. Electronically authenticated by: LEONA ECKERT Date: 12/26/2023 12:12
== END 2023-12-26 10:17 | disposition home or self-care (01) ==
LOC: RAD 10:18
PROVIDERS: PCP Family Medicine; Visit Provider Nurse Practitioner Family
DX: R09.89 Other specified symptoms and signs involving the circulatory and respiratory systems (principal); R05.9 Cough, unspecified
CPT/HCPCS: 71046

== ENCOUNTER 2024-01-11 07:15 | Outpatient (OUT) | payer OTHER, SELFPAY ==
--- OUTSIDE RECORDS SUMMARY | 2024-01-11 07:20 | XMS_ITS | CCD ---
Author Organization [facility] Care Team Providers Care Relay Mechanic Name Role Phone SELF, REFERRED Referring Unavailable DAVID LR Admitting Unavailable DAVID LR Attending Unavailable WAQAS PIERCE Primary Care Unavailable DAVID LR Surgeon Unavailable SD Procedure Practitioner Unavailab JUDSON Martinez Surgeon Unavailable SD Procedure Practitioner Unavailab Junior Peterson Unavailable Mallory Yuen Unavailable NON STAFF Primary Care Provider UnavailMD David Merritt II Attending Provider David Mcfarland II Unavailable MD Waqas Pierce Primary Care Provider [phone] MD Waqas Pierce Attending Provider WAQAS PIERCE Primary Care Physician Waqas Pierce Unavailable Rachel Vela Unavailable Rolando Castellanos Unavailable Grecia Carrera Unavailable Efrain CORTES Attending Unavailable Efrain CORTES Attending Unavailable KARI, DR WAQAS Mendez Primary Care Unavailable AMY KASPER Attending Unavailable AMY KASPER Admitting Unavailable KARI, DR WAQAS Mendez Primary Care Unavailable NILSharan Rivera, DR SHARMA Attending Unavailable NILSharan Rivera, DR SHARMA Admitting Unavailable NILSharan Rivera, DR SHARMA Consulting Unavailable DIEGO WHITLEY Consulting Unavailable MARIA EUGENIA HUTTON Consulting Unavailable KARI, DR WAQAS Mendez Primary Care Unavailable JASMIN, DR MARSHALL Attending Unavailable JASMIN, DR MARSHALL Admitting Unavailable JASMIN, DR MARSHALL Consulting Unavailable KARI, DR WAQAS Mendez Primary Care Unavailable AMY KASPER Attending Unavailable LACONIA, DR SHAWNEE James Consulting Unavailable AMY KASPER Admitting Unavailable AMY KASPER Consulting Unavailable KARI, DR WAQAS Mendez Primary Care Unavailable CHUCKY [...] DR ARIELA Vaz Consulting Unavailable HIGHLANDER, AMY D Admitting Unavailable HIGHLANDER, AMY Iverson Consulting Unavailable PIERCE, DR WAQAS Mendez Primary Care Unavailable HIGHLANDER, AMY Iverson Attending Unavailable HIGHLANDER, PETER D Admitting Unavailable PIERCE, DR WAQAS Mendez Primary Care Unavailable HIGHLANDER, AMY Iverson Attending Unavailable HIGHLANDER, PETER D Admitting Unavailable PIERCE, DR WAQAS Mendez Primary Care Unavailable HIGHLANDER, AMY D Attending Unavailable HIGHLANDER, PETER D Admitting Unavailable PIERCE, DR WAQAS Mendez Primary Care Unavailable HIGHLANDER, AMY Iverson Consulting Unavailable HIGHLANDER, AMY D Attending Unavailable HIGHLANDER, PETER D Admitting Unavailable RYANALEX Consulting Unavailable PIERCE, DR WAQAS Mendez Primary [...] PETER D Admitting Unavailable HIGHLANDER, AMY Iverson Consulting Unavailable HIGHLANDER, PETER D Attending Unavailable PIERCE, DR WAQAS Mendez Primary Care Unavailable HIGHLANDER, PETER D Admitting Unavailable PIERCE, DR WAQAS Mendez Primary Care Unavailable HIGHLANDER, AMY D Attending Unavailable HIGHLANDER, PETER D Admitting [...] Admitting Unavailable HIGHLANDER, AMY Iverson Attending Unavailable PEIRCE, DR WAQAS Mendez Primary Care Unavailable WEST, DR SHAWNEE James Consulting Unavailable HIGHLANDER, AMY Iverson Consulting Unavailable PIERCE, DR WAQAS Mendez Primary Care Unavailable HIGHLANDER, AMY Iverson Admitting Unavailable HIGHLANDER, AMY Iverson Attending Unavailable HIGHLANDER, AMY Iverson Attending Unavailable PIERCE, DR WAQAS Mendez Primary Care Unavailable HIGHLANDER, AMY Iverson Admitting Unavailable HIGHLANDER, AMY Iverson Admitting Unavailable HIGHLANDER, AMY Iverosn Attending Unavailable PIERCE, DR WAQAS Mendez Primary [...] TOMPKINS Consulting Unavailable AMY FOWLER Consulting Unavailable FAWWAD, ROWLAND H Attending Unavailable STEVENWMIGUED, ROWLAND H Admitting Unavailable PIERCE, DR WAQAS Mendez Primary Care Unavailable ZAHEER, DR ARIELA Vaz Consulting Unavailable LAMIN MOHAN Consulting Unavailable HIGHLANDER, AMY Iverson Consulting Unavailable AGUBOSIMMELINDA Consulting Unavailable SANDRAANDER, AMY Iverson Procedure Practitioner Unava ilenid GIL ., ELICEO Consulting Unavailable CATRINA, ROWLAND H Consulting Unavailable TUNDE NORMAN Consulting Unavailable DEVIN, AMRITCHIE Consulting Unavailable AA, AA Consulting Unavailable PIERCE, DR WAQAS Mendez Primary Care Unavailable CHUCKY ., DR MALAVE Attending Unavailable CHUCKY ., DR MALAVE Consulting Unavailable CHUCKY ., DR MALAVE Admitting Unavailable ZIEBER, DR ARIELA Vaz Consulting Unavailable PIERCE, DR WAQAS Mendez Primary Care Unavailable HIGHLANDER, AMY Iverson Attending Unavailable RANJITH, AMY Iverson Admitting Unavailable WEST, DR SHAWNEE [...] PIERCE, DR WAQAS Mendez Primary Care Un[facility] AMY Iverson Attending Unavailable HIGHLANDER, AMY Iverson Admitting Unavailable PIERCE, DR WAQAS Mendez Primary Care Unavailable MISC, DR PEÑA Consulting Unavailable MISC, DR PEÑA Admitting Unavailable MISC, DR PEÑA Attending Unavailable HIGHLANDER, AMY Iverson Attending Unavailable PIERCE, DR WAQAS Mendez Primary Care Unavailable [facility] AMY Iverson Admitting Unavailable MARJORIEKIMBERLY Attending Unavailable MARJORIESOLOKIMBERLY Attending Unavailable MD David Mcfarland II Attending Provider MD Waqas Pierce Primary Care Provider [phone] NON STAFF Primary Care Provider Unavailabl myron Carrie Perea Unavailable MD David Mcfarland II Attending Provider MD Waqas Pierce Primary Care Provider [phone] NON STAFF Primary Care Provider UnavailMD Marcin Chambers Attending Provider MD David Mcfarland II Attending Provider Marcin Grace Admitting Unavailab Marcin Ramos Attending Unavailab le NON STAFF Primary Care Unavailable Waqas Pierce Primary Care Unavailable David Mcfarland II Attending UnavailDavid Merritt II Admitting Unavailabl e NON STAFF Primary Care Unavailable David Mcfarland II Attending UnavailDavid Merritt II Admitting Unavailabl e NON STAFF Primary Care Unavailable David Mcfarland II M Admitting Unavailabl e [place] II, David Gordillo Attending Unavailabl e [place] II, David Gordillo Attending Unavailabl e Bartolo BAUGH, David Gordillo Admitting Unavailabl e NON STAFF Primary Care Unavailable NON STAFF Primary Care Unavailable Bartolo BAUGH, David Gordillo Admitting Unavailabl e Bartolo BAUGH, David Gordillo Attending UnavailWaqas Dumont Primary Care Unavailable Bartolo BAUGH, David Gordillo Attending Unavailabl e Bartolo BAUGH, David Gordillo Admitting Unavailabl e NON STAFF Primary Care Unavailable Bartolo BAUGH, David Gordillo Admitting Unavailabl e Bartolo BAUGH, David Gordillo Attending Unavailabl MD David Richards II Attending Provider [phone] MD Waqas Pierce Primary Care Provider NON STAFF Primary Care Provider MD Marcin Zamorano Attending Provider MD Marcin Grace Attending Provider Allergies Allergy Classification Reported Allergen(s) Allergy Type Date of Onset Reaction(s) Facility metFORMIN (1 source) metFORMIN; Translations: [METFORMIN] Drug Allergy 12-17-19 21 [facility] Penicillins (antibiotic) (1 source) Penicillin Drug Allergy 03-11-20 18 [facility] Serotonin (1 source) Serotonin; Translations: [SEROTONIN] Drug Allergy 12-17-19 21 [facility] (20 sources) Penicillin G Drug Allergy 11-01-19 24 [facility] (20 sources) CYMBOLTA Propensity to adverse reactions temporary blindness and couldnt feel herself breathing [facility] Other (20 sources) DULoxetine; Translations: [duloxetine] Drug Allergy 09-05-20 22 Impairment level of vision (disorder) [facility] (20 sources) metFORMIN; Translations: [metformin] Drug Allergy 09-05-20 22 Abdominal mass (finding) [facility] (20 sources) Penicillin; Translations: [penicillin] Drug Allergy 08-08-20 13 Eruption of skin (disorder) [facility] (1 source) DULoxetine Drug Allergy [facility] (1 source) metFORMIN Drug Allergy [facility] (11 sources) Penicillins; Translations: [PENICILLINS] Drug allergy (disorder) 10-01-19 00 Rash [facility] (20 sources) Rx Essentials Antidepressant *HEMATOPOIETIC AGENTS Propensity to adverse reactions Comment:LEENACISCO LYNCH [facility] Other (3 sources) Allergies Reconciled Propensity to adverse reactions 08-17-20 Unknown [facility] Other (20 sources) Substance with penicillin structure and antibacterial mechanism of action (substance) Drug allergy Unknown [facility] Other (20 sources) Substance with serotonin re-uptake inhibitor mechanism of action (substance) Drug allergy 09-04-20 SEROTONIN HCL [facility] Other (3 sources) patient allergy list reviewed by nurse or physicia Propensity to adverse reactions 12-09-19 14 Comment:Done [facility] Other (9 sources) Serotonin Drug Allergy 08-28-20 23 temporary blindness, couldn't feel self breath [facility] (6 sources) Rx Essentials Antidepressant * Allergy to substance 11-01-19 Comment:[facility] (1 source) DULoxetine Drug Allergy 08-28-20 [facility] (1 source) metFORMIN Drug Allergy 08-28-20 23 [facility] (1 source) Penicillins Drug allergy (disorder) 08-28-20 [facility] Medications Current Medications Medication Drug Class(es) [...] Mar, Active acetaminophen 500 mg oral tablet (20 sources) Start: 01-03-2024 take 1000 mg by mouth twice daily Acetaminophen Active 1000 MG PO .COMPLEX January 03, 2024 11:02am 1,000 mg orally bid; Start: 12-26-2023 End: 01-03-2024 take 1000 mg by mouth every eight hours Acetaminophen Discontinued 1000 MG PO Every 8 hours December 26, 2023 12:00am January 03, 2024 11:02am Start: 08-30-2023 take 2 tablets by mo [facility] every eight hours for pain Acetaminophen 500 MG 2 tablets for pain Orally every 8 hrs for 30 days MED TO BED UPON DISCHARGE DOS: 09/03/23 Aug, Active Tylenol Active Albuterol (4 sources) beta2-Adrenergic Agonist Start: 01-01-2024 take 1 puff(s) by inhalation every four to six hours Albuterol Sulfate Active 2 PUFF INHALATION EVERY 4-6 HOURS 6.7 January 01, 2024 12:00am Start: 10-19-2019 take 2 puff(s) by in halation every four hours as needed Albuterol Sulfate [...] Platelet Aggregation Inhibitor, Nonsteroidal Anti-inflammatory Drug Start: take 1 tablet by mouth every twelve hours Aspirin 81 81 MG 1 tablet Orally Twice a day for 35 days MED TO BED UPON DISCHARGE DOS: 09/03/23 Aug, Active Start: 08-30-2023 take 1 tablet by krysten twice daily Aspirin 81 81 MG 1 tablet Orally Twice a day for 35 days MED TO BED UPON DISCHARGE DOS: 09/03/23 Aug, Active atorvastatin (20 sources) HMG-CoA Reductase Inhibitor Start: 01-09-2024 take 1 tablet by mouth once daily Atorvastatin Active 0 .ROUTE .COMPLEX 90 January 09, 2024 2:16pm TAKE 1 TABLET BY MOUTH DAILY Start: 08-16-2020 End: 01-09-2024 take 20 mg by mouth once daily at bedtime Atorvastatin Discontinued 20 MG PO Daily at bedtime August 28, 2023 1:00am January 09, 2024 2:16pm Atorvastatin Mickey cium Active azithromycin 250 mg [...] 50 MCG PO Daily August 28, 2023 1:00am take 1 tablet by mouth once radha y Cholecalciferol 50 MCG (2000 UT) 1 tablet Orally Once a day [...] 3 capsules Orally every 8 hrs Active diclofenac sodium 75 mg delayed release oral tablet (20 sources) Nonsteroidal Anti-inflammatory Drug Start: 12-21-19 take 1 tablet by mouth twice daily Diclofenac Sodium Active 0 .ROUTE .COMPLEX 180 December 21, 2023 3:37pm TAKE 1 TABLET BY MOUTH TWICE DAILY Start: 11-22-2023 End: 12-21-2023 take 75 mg by mouth twice daily Diclofenac Sodium Discontinued 75 MG PO Twice daily November 22, 2023 1:00am December 21, 2023 3:38pm Start: 08-28-2023 End: 09-03-2023 take 75 mg by mouth twice daily Diclofenac Sodium Discontinued 75 MG PO Twice daily August 28, 2023 1:00am September 03, 2023 7:50am Diclofenac Activ e Diclofenac 75mg Tab-DR (1 source) Start: 08-16-2020 take 1 tablet by mouth twice daily Diclofenac 75mg Tab-DR 75 mg, Oral, BID, Refills(s) 0 Start Date: 08/16/20 Status: Ordered docusate sodium 50 mg / sennosides, care home 8.6 mg oral tablet (12 sources) Start: 08-30-2023 take 2 tablets by mouth every twenty-four hours Senokot S 8.6-50 MG 2 tablets Orally Once a day for 30 days MED TO BED UPON DISCHARGE DOS: 09/03/23 PRN Aug, Active doxycycline monohydrate 100 mg oral capsule (6 sources) Tetracycline- class Drug Start: 12-26-2023 take 100 mg by mouth twice daily Doxycycline Monohydrate Active 100 MG PO Twice daily 20 07December 26, 2023 12:00am Start: 10-19-2019 take 1 capsule by [facility] every twelve hours Doxycycline Monohydrate 100 MG 1 capsule Orally every 12 hrs for 7 days Oct, Not-Taking Fish Oils (20 sources) Fish Oil 454mg g ummy 3 a day Active Fish Oil Active Flax Seed Oil (20 sources) Flax Seed Oil 14 00mg capsule qd Active fluticasone propionate 0.05 mg/actuat metered dose nasal spray (20 sources) Corticosteroid Start: 11-22-2023 Fluticasone Propionate Active 1 SPRAY INTRANASAL Daily November 22, 2023 1:00am take 1 spray(s) nasa l route once daily as needed Fluticasone Propionate 50 MCG/ACT 1 spra y in each nostril Nasally Once a day [...] oral tablet (20 sources) l-Thyroxi ne Start: 01-09-2024 take 1 tablet by mouth in the morning Levothyroxine Active 0 .ROUTE .COMPLEX January 09, 2024 2:16pm TAKE 1 TABLET BY MOUTH IN THE MORNING ON AN EMPTY STOMACH Start: 11-21-2023 End: 01-09-2024 take 1 tablet by mouth once daily in the morning Levothyroxine Discontinued 0 .ROUTE .COMPLEX November 21, 2023 1:46pm January 09, 2024 2:16pm TAKE 1 TABLET BY MOUTH ONCE DAILY IN THE MORNING ON AN EMPTY STOMACH Start: 08-28-2023 End: 11-21-2023 take 50 ug by mouth once daily in the morning Levothyroxine Discontinued 50 MCG PO Every morning August 28, 2023 1:00am November 21, 2023 1:46pm Start: 01-17-2023 take 1 tablet by krysten [...] release oral tablet (20 sources) alpha-Adrenergic Agonist Start: 12-26-2023 take 1 tablet by mouth once daily, then take 1 tablet by mouth every twenty-four hours Loratadine-Pseudoephedrine (Claritin-D 24 Hour) 10-240 mg tablet extended release 24 hr Active 1 TAB PO Daily December 26, 2023 12:00am take 10-240 mg by mouth once as needed Claritin-D 24 Hour 10-240 MG 1 tablet as needed Orally prn Active Magnesium (20 sources) take 1 tablet by mouth once daily Magnesium 250 MG 1 tablet with a meal Orally Once a day Active 24 hr metoprolol succinate 25 mg extended release oral tablet (20 sources) beta-Adrenergic Miranda Start: 11-08-2022 take 25 mg by mouth once daily in the morning Metoprolol Succinate Active 25 MG PO Every morning August 28, 2023 1:00am mounjaro 2.5 mg/0.5ml solution pen-injector (13 sources) Start: 03-09-2023 Mounjaro 2.5 MG/0.5ML as directed Subcutaneous weekly Mar, Active Mounjaro 2.5 MG/ 0.5ML as directed Subcutaneous weekly Active Multivitamin preparation (20 sources) take 1 tablet by mouth once daily Multivitamin - 1 tablet Orally Once a day Active Osteo Bi-Flex Triple Strength - (20 sources) Osteo Bi-Flex Tr iple Strength - as directed Orally Active pantoprazole (20 sources) Proton Pump Inhibitor Start: take 1 tablet by mouth once daily Pantoprazole Active 0 .ROUTE .COMPLEX November 21, 2023 1:47pm TAKE 1 TABLET BY MOUTH DAILY Start: 11-21-2023 take 1 tablet by krysten th once daily Pantoprazole Active 0 .ROUTE .COMPLEX November 21, 2023 12:47pm TAKE 1 TABLET BY MOUTH DAILY Start: 08-30-2023 take 1 tablet by krysten th every twenty-four hours Protonix 20 MG 1 tablet Orally Once a day for 35 days MED TO BED UPON DISCHARGE DOS: 09/03/23 Aug, Active Start: 08-16-2020 End: 11-21-2023 take 40 mg by mouth once daily in the morning Pantoprazole Discontinued 40 MG PO Every morning August 28, 2023 1:00am November 21, 2023 1:47pm take 1 tablet by krysten th every twenty-four hours Pantoprazole Sodium 20 MG 1 tablet Orally Once a day Active polyethylene glycol 3350 41047 mg powder for oral solution (12 sources) [...] 100-150 MG-UNIT as directed Orally Active Tirzepatide (9 sources) Start: 08-28-2023 Tirzepatide (Mounjaro) 2.5 mg/0.5 mL Pen Injector Active 2.5 MG SUBCUT every week August 28, 2023 1:00am Start: 08-28-2023 Tirzepatide (M ounjaro) 2.5 mg/0.5 mL Pen Injector Active 2.5 MG SUBCUT every week August 28, 2023 12:00am Triamcinolone Acet-Ciclopirox 0.1 & 8 % (20 sources) Triamcinolone Acet-Ciclopirox 0.1 & 8 % as directed Externally Active ubiquinol 100 mg oral capsule (20 sources) Start: 11-22-2023 take 1 capsule by mouth twice daily Coq10 (Ubiquinol) (Qunol Rudy Coq10) 100 mg capsule Active 100 MG PO Twice daily November 22, 2023 1:00am Qunol Ultra CoQ1 0 100-150 MG-UNIT as directed Orally Not-Taking/PRN Vitamin D 50 MCG (1999) (3 sources) take 1 capsule by ms ut once daily Vitamin D 50 MCG (1999) 1 capsule Orally Once a day Active Completed/Discontinued Medications Medication Drug Class(es) Dates Sig (Normalized) Sig (Original) acetaminophen 325 mg / HYDROcodone bitartrate 5 mg oral tablet (20 sources) Opioid Agonist HYDROcodone-Acet aminophen 5-325 MG TAKE 1 TO 2 TABLETS BY MOUTH EVERY 6 TO 8 HOURS NEEDED max 5 (FIVE) TABLET per 24 HOURS Oral for 6 Days PRN Not-Taking bifidobacterium infantis 4 mg oral capsule (20 sources) Align - as directed Orally Not-Taking cefadroxil 500 mg oral capsule (15 sources) Cephalosporin Antibacterial Start: 08-30-2023 take 1 capsule by mouth every twelve hours Cefadroxil 500 MG 1 tablet Orally every 12 hrs for 7 days MED TO BED UPON DISCHARGE DOS: 09/03/23 Aug, Not-Taking/PRN methylPREDNISolone 4 mg oral tablet (4 sources) Corticosteroid Start: 10-19-2019 Medrol (Wei) 4 MG half of daily dose in the morning with food and the rest at night with food Orally Oct, Not-Taking morphine sulfate 15 mg extended release oral tablet (15 sources) Opioid Agonist Start: 08-30-2023 take 1 tablet by mouth every twelve hours as needed for pain Morphine Sulfate ER 15 MG 1 tablet for breakthrough pain only Orally every 12 hrs for 5 days MED TO BED UPON DISCHARGE DOS: 09/03/23 Aug, Not-Taking/PRN ondansetron 8 mg oral tablet (15 sources) Serotonin-3 Receptor Antagonist Start: 08-30-2023 take 1 tablet by mouth three times daily as needed for nausea Ondansetron HCl 8 MG 1 tablet as needed for nausea Orally Three times a day for 10 days MED TO BED UPON DISCHARGE DOS: 09/03/23 Aug, Not-Taking/PRN oxyCODONE hydrochloride 5 mg oral tablet (15 sources) Opioid Agonist Start: 08-30-2023 take 1 tablet by mouth every four hours as needed for pain oxyCODONE HCl 5 MG 1 tablet as needed for pain Orally every 4 hrs for 10 days MED TO BED UPON DISCHARGE DOS: 09/03/23 Aug, Not-Taking/PRN sulfamethoxazole 800 mg / trimethoprim 160 mg oral tablet (5 sources) Dihydrofolate Reductase Inhibitor Antibacterial, Sulfonamide Antimicrobial Start: 11-21-2023 End: 12-26-2023 take 1 tablet by mouth twice daily Sulfamethoxazole -Trimethoprim Discontinued 1 TAB PO Twice daily November 21, 2023 1:00am December 26, 2023 8:55am traMADol hydrochloride 50 mg oral tablet (20 [...] in am and two at bedtime Active Vitamin D3 1000 intl units oral tablet [...] Translations: [Tachycardia, unspecified] Onset: 2 Episodic Chronic obstructive pulmonary disease and bronchiectasis (4 sources) Bronchitis; Translations: [Bronchitis, not specified as acute or chronic] 12-26-2023 Episodic Chronic ulcer of skin (11 sources) [...] Onset: 2 Episodic Diabetes mellitus without complication (20 sources) Other abnormal glucose; Translations: [Impaired fasting [...] sources) Mixed urinary incontinence; Translations: [Mixed incontinence] Chronic Headache; including migraine (20 sources) Migraine; [...] Translations: [Contracture, 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 Other aftercare (10 sources) Patient encounter status; Translations: [Aftercare following joint replacement surgery] Chronic Other aftercare (5 sources) Aftercare following joint replacement surgery; Translations: [Aftercare following joint replacement] Chronic Other aftercare (2 sources) Other terminal supervisor (current) drug therapy; Translations: [OTH HALF-WAY CURRENT DRUG THERAPY] Onset: 3 Episodic Other circulatory disease (3 sources) Elevated blood-pressure reading without diagnosis of hypertension; Translations: [Elevated blood-pressure reading, without diagnosis of hypertension] Episodic Other circulatory disease (3 sources) Pulmonary congestion ; Translations: [Other specified symptoms and signs involving the circulatory and respiratory systems] 12-26-2023 Episodic Other circulatory disease (3 sources) Other specified symptoms and signs involving the circulatory and respiratory systems; Translations: [Other symptoms involving respiratory system and chest] 12-26-2023 Episodic Other connective tissue disease (10 sources) Hip joint prosthesis present; Translations: [Presence [...] tissue disease (20 sources) Fibromyalgia; Translations: [Fibromyalgia] 11-28-2023 Episodic Other connective tissue disease (3 sources) [...] disorders (20 sources) Constipation; Translations: [Constipation, unspecified] 11-28-2023 Episodic Other gastrointestinal disorders (1 source) History of rectal bleeding 03-04-2021 Episodic Other inflammatory condition of skin (3 sources) Rosacea; Translations: [Rosacea, unspecified] Onset: 9 Chronic Other liver diseases (20 sources) Steatosis of liver; Translations: [Fatty (change of) liver, not elsewhere classified] Onset: 7 11-22-2023 Chronic Other liver diseases (14 sources) Fatty (change of) liver, not elsewhere classified; Translations: [Other chronic nonalcoholic liver disease] Onset: 3 Chronic Other lower respiratory disease (1 source) Nodule of lung 08-16-2020 Episodic Other lower respiratory disease (18 sources) Cough; Translations: [Cough, unspecified] 12-26-2023 Episodic Other lower respiratory disease (5 sources) Solitary nodule of lung; Translations: [Solitary pulmonary nodule] 12-27-2023 Episodic Other nervous system disorders (20 sources) Chronic pain; Translations: [Other chronic pain] 11-28-2023 Chronic Other nervous system disorders (4 sources) [...] sources) Obesity; Translations: [Obesity, unspecified] Onset: 5 11-28-2023 Chronic Other nutritional; endocrine; and metabolic disorders [...] Chronic Other nutritional; endocrine; and metabolic disorders (16 sources) Body mass index (BMI) 40.0-44.9, adult; Translations: [Body Mass Index 40.0-44.9, adult] Chronic Other nutritional; endocrine; and [...] sinusitis, unspecified] Chronic Other upper respiratory infections (11 sources) Acute maxillary sinusitis; Translations: [Acute maxillary [...] [Obstructive sleep apnea (adult) (pediatric)] Onset: 8 11-28-2023 Chronic Residual codes; unclassified (9 sources) Obstructive [...] replacement surgery] Onset: 4 Unclassified (1 source) Encounter for other preprocedural examination; Translations: [Encounter for other preprocedural examination] Onset: 3 Unclassified (1 source) Unilateral primary osteoarthritis, right [...] XR hip RT min 2V(w/wo pelvis )*on 11-28-2023 XR hip RT min 2V(w/wo pelvis)* [facility] [place] [address] XRay Report Signed Patient: Nicol Smith MR#: [id number] 9 : 1960 Acct:[id number] Age/Sex: 63 / F ADM Date: 11/28/23 Loc: [place] Room: Type: [facility] Attending Dr: David Mcfarland II, MD Copies to: David Mcfarland MD Ordering Provider: David Mcfarland MD Date of Service: 11/28/23 XR/XR hip RT min 2V(w/wo pelvis)*: Z47.1 - Aftercare following joint replacement surgery RIGHT HIP - 2 views: CLINICAL HISTORY: Status post right EMMA COMPARISON: Hip series 10/17/2023 FINDINGS: Bilateral hip prostheses without radiographic complication. XR/XR hip RT min 2V(w/wo pelvis)* IMPRESSION: BILATERAL HIP PROSTHESIS WITHOUT RADIOGRAPHIC COMPLICATION.. Impression dictated by: Stalin Matamoros Jr., D.O.11/28/2023 1:06 PM Dictation Location: [id number]-12 Transcribed By: SILVIA 11/28/23 1306 Dictated By: Stalin Matamoros Jr, DO 11/28/23 1305 Signed By: 11/28/23 1306 [facility] XR hip RT min 2V(w/wo pelvis )*on 10-17-2023 XR hip RT min 2V(w/wo pelvis)* [place] [address] XRay Report Signed Patient: Nicol Smith MR#: [id number] 9 : 1960 Acct:[id number] Age/Sex: 63 / F ADM Date: 10/17/23 Loc: [place] Room: Type: [facility] Attending Dr: David Mcfarland II, MD [...] Kane Katz M.D.10/17/2023 3:39 PM Dictation Location: RADIO-PC-12 Transcribed By: SILVIA 10/17/23 1539 Dictated By: Kane Katz DO 10/17/23 1538 Signed By: 10/17/23 153 [facility] XR hip RT min 2V(w/wo pelvis)* [facility] [employer] Other XR hip RT min 2V(w/wo pelvis)* [facility] Other XR hip RT min 2V(w/wo pelvis)* [address] flaregames Other XR hip RT min 2V(w/wo pelvis)* DARSHAN Tang [address] [employer] Other XR hip RT min 2V(w/wo pelvis)* XRay Report [employer] Other XR hip RT min 2V(w/wo pelvis)* Signed [employer] Other XR hip RT min 2V(w/wo pelvis)* Patient: Nicol Smith MR#: [id number] [employer] Other XR hip RT min 2V(w/wo pelvis)* 9 [employer] Other XR hip RT min 2V(w/wo pelvis)* : 1960 Acct:[id number] [employer] Other XR hip RT min 2V(w/wo pelvis)* Age/Sex: 63 / F ADM Date: 10/17/23 [employer] Other XR hip RT min 2V(w/wo pelvis)* Loc: [place] Room: Type: [facility] [employer] Other XR hip RT min 2V(w/wo pelvis)* Attending Dr: David Mcfarland II, MD [employer] Other XR hip RT min 2V(w/wo pelvis)* Copies to: David Mcfarland MD [employer] Other XR hip RT min 2V(w/wo pelvis)* Ordering Provider: David Mcfarland MD [employer] Other XR hip RT min 2V(w/wo pelvis)* Date of Service: 10/17/23 [employer] Other XR hip RT min 2V(w/wo pelvis)* XR/XR hip RT min 2V(w/wo pelvis)*: Aftercare following joint replacement [employer] Other XR hip RT min 2V(w/wo pelvis)* surgery;Presence of ri [employer] Other XR hip RT min 2V(w/wo pelvis)* 2 views right hip with single view pelvis plain film [employer] Other XR hip RT min 2V(w/wo pelvis)* COMPARISON: 09/03/2023 [employer] Other XR hip RT min 2V(w/wo pelvis)* HISTORY: Status post right total hip arthroplasty [employer] Other XR hip RT min 2V(w/wo pelvis)* ACUTE FINDINGS: None [employer] Other XR hip RT min 2V(w/wo pelvis)* DEGENERATIVE CHANGE: Unremarkable [employer] Other XR hip RT min 2V(w/wo pelvis)* SOFT TISSUE FINDINGS: Unremarkable [employer] Other XR hip RT min 2V(w/wo pelvis)* JOINT EFFUSION: None [employer] Other XR hip RT min 2V(w/wo pelvis)* POSTOP CHANGES: Stable bilateral hip arthroplasties. [employer] Other XR hip RT min 2V(w/wo pelvis)* BONY MINERALIZATION: Adequate [employer] Other XR hip RT min 2V(w/wo pelvis)* XR/XR hip RT min 2V(w/wo pelvis)* [employer] Other XR hip RT min 2V(w/wo pelvis)* IMPRESSION: Stable right hip arthroplasty. [employer] Other XR hip RT min 2V(w/wo pelvis)* Impression dictated by: Kane Katz M.D.10/17/2023 3:39 PM [employer] Other XR hip RT min 2V(w/wo pelvis)* Dictation Location: RADIO--12 [employer] Other XR hip RT min 2V(w/wo pelvis)* Transcribed By: PWS 10/17/23 3992 [employer] Other XR hip RT min 2V(w/wo pelvis)* Dictated By: Kane Katz DO 10/17/23 3313 [employer] Other XR hip RT min 2V(w/wo pelvis)* Signed By: [employer] Other XR hip RT min 2V(w/wo pelvis)* 10/17/23 4767 [employer] Other ABO/Rh Retypeon 09-03-2023 ABO/RH Recheck Result Positive Normal Fir [facility] Comment on above: Result Comment: PERF ORMED BY: [facility] [address] [place] [address] PATHOLOGIST [employer] SUAD Killian 09-03-2023 L ------ Specimen: [id number] Received: 09/03/23 Status: GRACIELA Chavez Num: [id number] Spec Type: Surgical Subm Dr: David Mcfarland MD Tissues: A Femoral Head - Other than Fracture (RT HIP) Procedures: HE/2, Gross/Micro L3, Decalcification Age/ Patient Sex Location Account Attending Physician Nicol Smith 63/F [place] [id number] David Mcfarland MD SPEC NUM: [id number] RECD: 09/03/23 STATUS: GRACIELA CHAVEZ NUM: [id number] SABRINA: 09/03/23 [facility] DR: David Mcfarland MD ENTERED: 09/03/[address]: BEATRICE TYPE: Surgical DEPT: S ORDERED: [...] is taken. Gross examination only. CPT Codes 45968 Specimen: [id number] Received: 09/03/23 Status: GRACIELA Chavez Num: [id number] Spec Type: Surgical Subm Dr: David Mcfarland MD Tissues: A Femoral Head - Other than Fracture (RT HIP) Procedures: HE/2, Gross/Micro L3, Decalcification Patient: RomeoNicol Gonsales [id number] (Continued) Specimen: [id number] Received: 09/03/23 (Continued) Signed (signature on file) Dez Núñez MD 09/07/23 1345 Specimen: [id number] Received: 09/03/23 Status: GRACIELA Chavez Num: [id number] Spec Type: Surgical Subm Dr: David Mcfarland MD Tissues: A Femoral Head - Other than Fracture (RT HIP) Procedures: HE/2, Gross/Micro L3, Decalcification Patient: RomeoNicol Gonsales [id number] (Continued) Specimen: [id number] Received: 09/03/23 (Continued) Maikol Photo Specimen: [id number] Received: 09/03/23 Status: GRACIELA Chavez Num: [id number] Spec Type: Surgical Subm Dr: David Mcfarland MD Tissues: A Femoral Head - Other than Fracture (RT HIP) Procedures: HE/2, Gross/Micro L3, Decalcification Patient: Nicol Smith [id number] (Continued) Signed (signature on file) Dez Núñez MD 09/07/23 1345 Normal [facility] XR low pelvis w/RT x-table h ipon 09-03-2023 XR low pelvis w/RT x-table hip [facility] [place] [address] XRay Report Signed Patient: Nicol Smith MR#: [id number] 9 : 1960 Acct:[id number] Age/Sex: 63 / F ADM Date: 09/03/23 Loc: [place] Room: Type: [facility] Attending Dr: David Mcfarland II, MD Copies to: David Mcfarland MD Ordering Provider: David Mcfarland MD Date of Service: 09/03/23 XR/XR low pelvis w/RT x-table hip: Total Hip, due in PACU ([id number]) XR/XR hip RT 1V: ANTERIOR HIP IN [...] Anna Hull M.D.09/03/2023 11:53 AM Dictation Location: [place] [address] Transcribed By: [facility] 09/03/23 1153 Dictated By: Anna Hull MD 09/03/23 1150 Signed By: 09/03/23 1153 Normal [facility] Automated erythrocytes count in urine sediment (number/area)Ordered By: David Mcfarland on 08-28-2023 RBC Auto (Urine sed) [#/Area] 1-2 [HPF] 0-4 [facility] Automated leukocytes count i n urine sediment (number/area)Ordered By: David Mcfarland on 08-28-2023 WBC Auto (Urine sed) [#/Area] 10-19 [HPF] 0-4 [facility] Basic Metabolic Panelon 08-02 Anion gap [Moles/Vol] 11.1 mmol/L Normal 6.0-15.0 [facility] Comment on above: Performed By: #### C BC, BMP #### [facility] [address] [place] [address] #### FRUC #### [facility] , Calcium [Mass/Vol] 9.7 mg/dL Normal 8.6-10.[address] [facility] Comment on above: Result Comment: PERF ORMED BY: [place] [address] PATHOLOGIST [employer] SUAD ARREAGA M.D. Performed By: #### C BC, BMP #### [facility] [address] [place] [address] [place] #### FRUC #### [facility] , Chloride [Moles/Vol] 107 mmol/L Normal 98-107 [facility] Comment on above: Performed By: #### C BC, BMP #### [place] [address] [place] #### FRUC #### [facility] , CO2 [Moles/Vol] 26.1 mmol/L Normal 21.0-31.0 [facility] Comment on above: Performed By: #### C BC, BMP #### [place] [address] [place] #### FRUC #### [facility] , Creatinine [Mass/Vol] 0.96 mg/dL Normal 0.60-1.20 [facility] Comment on above: Performed By: #### C BC, BMP #### [facility] [address] [place] [address] [place] #### FRUC #### [facility] , GFR/1.73 sq M.predicted MDRD (S/P/Bld) [Vol rate/Area] mL/min/{1.73_m2} [facility] Comment on above: Performed By: #### C BC, BMP #### [place] [address] [place] #### FRUC #### [facility] , Glucose [Mass/Vol] 98 mg/dL Normal 70-[address] [facility] Comment on above: Result Comment: [place] Glucose Reference Range is dependent on time and content of last meal. Glucose of more than 200 mg/dL in a nonstressed, ambulatory subject supports the diagnosis of Diabetes Mellitus. ADA recommended reference range Performed By: #### C BC, BMP #### [facility] [address] [place] [address] [place] #### FRUC #### [facility] , Potassium [Moles/Vol] 4.2 mmol/L Normal 3.5-5.1 [facility] Comment on above: Performed By: #### C BC, BMP #### [facility] [address] [place] [address] [place] #### FRUC #### [facility] , Sodium [Moles/Vol] 140 mmol/L Normal 136-[address] [facility] Comment on above: Performed By: #### C BC, BMP #### [facility] [address] [place] [address] [place] #### FRUC #### [facility] , Urea nitrogen [Mass/Vol] 17 mg/dL Normal 7-25 [facility] Comment on above: Performed By: #### C BC, BMP #### [facility] [address] [place] [address] [place] #### FRUC #### [facility] , Basophils Auto (Bld) [#/Vol] Ordered By: David Mcfarland on 08-28-2023 Basophils (Bld) [#/Vol] 0.1 10*3/uL 0.0-0.2 [facility] Basophils/100 WBC Auto (Bld) Ordered By: David Mcfarland on 08-28-2023 Basophils/100 WBC (Bld) 1.1 % . [facility] Bilirubin Test strip Ql (U)O rdered By: David Mcfarland on 08-28-2023 Bilirubin Ql (U) Negative Negative [facility] Calcium [Mass/volume] in Ser um or PlasmaOrdered By: David Mcfarland on 08-28-2023 Calcium [Mass/Vol] 9.7 mg/dL 8.6-10.[address] [facility] Carbon dioxide, total [Moles /volume] in Serum or PlasmaOrdered By: David Mcfarland on 08-28-2023 CO2 [Moles/Vol] 26.1 mmol/L 21.0-31.0 [facility] Chloride [Moles/volume] in S adela or PlasmaOrdered By: David Mcfarland on 08-28-2023 Chloride [Moles/Vol] 107 mmol/L 98-107 [facility] Color Auto (U)Ordered By: Arleth Mcfarland on 08-28-2023 Color (U) Yellow Yellow [facility] Complete Blood Count Auto Di ffon 08-28-2023 Basophils (Bld) [#/Vol] 0.1 10*3/uL Normal 0.0-0.2 [facility] Comment on above: Result Comment: PERF ORMED BY: [place] [address] PATHOLOGIST [employer] SUAD ARREAGA M.D. Performed By: #### C BC, BMP #### [address] #### FRUC #### [facility] , Basophils/100 WBC (Bld) 1.1 % Normal . [facility] Comment on above: Performed By: #### C BC, BMP #### [facility] [address] [place] [address] [place] #### FRUC #### [facility] , Eosinophils (Bld) [#/Vol] 0.1 10*3/uL Normal 0.0-0.45 [facility] Comment on above: Performed By: #### C BC, BMP #### [facility] [address] [place] [address] [place] #### FRUC #### [facility] , Eosinophils/100 WBC (Bld) 1.0 % Normal . [facility] Comment on above: Performed By: #### C BC, BMP #### [address] #### FRUC #### [facility] , Erythrocyte distribution width (RBC) [Ratio] 17.5 % High 11.9-15.3 [facility] Comment on above: Performed By: #### C BC, BMP #### [place] [address] [place] #### FRUC #### [facility] , Hematocrit (Bld) [Volume fraction] 36.9 % Normal 34.0-46.4 [facility] Comment on above: Performed By: #### C BC, BMP #### [facility] [address] [place] [address] [place] #### FRUC #### [facility] , Hemoglobin (Bld) [Mass/Vol] 11.9 g/dL Normal 11.8-15.4 [facility] Comment on above: Performed By: #### C BC, BMP #### [address] #### FRUC #### [facility] , Lymphocytes (Bld) [#/Vol] 1.6 10*3/uL Normal 1.00-4.8 [facility] Comment on above: Performed By: #### C BC, BMP #### [place] [address] [place] #### FRUC #### [facility] , Lymphocytes/100 WBC (Bld) 25.3 % Normal . [facility] Comment on above: Performed By: #### C BC, BMP #### [facility] [address] [place] [address] [place] #### FRUC #### [facility] , MCH (RBC) [Entitic mass] 25.0 pg Normal 24.7-34.3 [facility] Comment on above: Performed By: #### C BC, BMP #### [place] [address] [place] #### FRUC #### [facility] , MCV (RBC) [Entitic vol] 78.0 fL Low 80-100 [facility] Comment on above: Performed By: #### C BC, BMP #### [facility] [address] [place] [address] [place] #### FRUC #### [facility] , Mean Corpuscular HGB Conc 32.1 g/dL Normal 32.0-35.0 [facility] Comment on above: Performed By: #### C BC, BMP #### [facility] [address] [place] [address] [place] #### FRUC #### [facility] , Monocytes (Bld) [#/Vol] 0.5 10*3/uL Normal 0.0-0.8 [facility] Comment on above: Performed By: #### C BC, BMP #### [place] [address] [place] #### FRUC #### [facility] , Monocytes/100 WBC (Bld) 7.6 % Normal . [facility] Comment on above: Performed By: #### C BC, BMP #### [facility] [address] [place] [address] [place] #### FRUC #### [facility] , Neutrophils (Bld) [#/Vol] 4.2 10*3/uL Normal 1.8-7.7 [facility] Comment on above: Performed By: #### C BC, BMP #### [facility] [address] [place] [address] [place] #### FRUC #### [facility] , Neutrophils/100 WBC (Bld) 65.0 % Normal . [facility] Comment on above: Performed By: #### C BC, BMP #### [facility] [address] [place] [address] [place] #### FRUC #### [facility] , NRBC% 0.1 /100{WBC} Normal 0-0.5 [facility] Comment on above: Performed By: #### C BC, BMP #### [address] [address] [place] #### FRUC #### [facility] , Platelet mean volume (Bld) [Entitic vol] 8.0 fL Normal 6.3-10.7 [facility] Comment on above: Performed By: #### C BC, BMP #### [address] #### FRUC #### [facility] , Platelets (Bld) [#/Vol] 387 10*3/uL Normal 150-450 [facility] Comment on above: Performed By: #### C BC, BMP #### [facility] [address] [place] [address] #### FRUC #### [facility] , RBC (Bld) [#/Vol] 4.74 10*6/uL Normal 3.60-5.00 [facility] Comment on above: Performed By: #### C BC, BMP #### [address] #### FRUC #### [facility] , WBC (Bld) [#/Vol] 6.4 10*3/uL Normal 3.8-11.[address] [facility] Comment on above: Performed By: #### C BC, BMP #### [place] [address] [place] #### FRUC #### [facility] , Creatinine [Mass/volume] in Serum or PlasmaOrdered By: David Mcfarland on 08-28-2023 Creatinine [Mass/Vol] 0.96 mg/dL 0.60-1.20 [facility] Dipstick and Microscopicon 1 10-28-2022 Appearance (U) Clear Normal Clear [facility] Comment on above: Order Comment: Name Collection Type:: Clean-Voided Midstream Performed By: #### A DDONUAPLUS, CUU #### [address] Bacteria,Urine None Seen Normal None Seen [facility] Comment on above: Order Comment: Name Collection Type:: Clean-Voided Midstream Performed By: #### A DDONUAPLUS, CUU #### [place] [address] [place] Bilirubin,Urine Negative Normal Negative [facility] Comment on above: Order Comment: Name Collection Type:: Clean-Voided Midstream Performed By: #### A DDONUAPLUS, CUU #### [place] [address] [place] Color (U) Yellow Normal Yellow [facility] Comment on above: Order Comment: Name Collection Type:: Clean-Voided Midstream Performed By: #### A DDONUAPLUS, CUU #### [address] Glucose Ql (U) Normal Normal Normal [facility] Comment on above: Order Comment: Name Collection Type:: Clean-Voided Midstream Performed By: #### A DDONUAPLUS, CUU #### [place] [address] [place] Hyaline Casts,Urine 0-8 Normal 0-8 [facility] Comment on above: Order Comment: Name Collection Type:: Clean-Voided Midstream Result Comment: PERF ORMED BY: [place] [address] PATHOLOGIST [employer]IVER SUAD ARREAGA M.D. Performed By: #### A DDONUAPLUS, CUU #### [place] [address] [place] Ketones Ql (U) Negative Normal Negative [facility] Comment on above: Order Comment: Name Collection Type:: Clean-Voided Midstream Performed By: #### A DDONUAPLUS, CUU #### [place] [address] [place] Leukocyte esterase Test strip Ql (U) 3+ High Negative [facility] Comment on above: Order Comment: Name Collection Type:: Clean-Voided Midstream Performed By: #### A DDONUAPLUS, CUU #### [facility] [address] [place] [address] [place] Nitrite,Urine Negative Normal Negative [facility] Comment on above: Order Comment: Name Collection Type:: Clean-Voided Midstream Performed By: #### A DDONUAPLUS, CUU #### [place] [address] [place] Occult Blood,Urine Negative Normal Negative [facility] Comment on above: Order Comment: Name Collection Type:: Clean-Voided Midstream Result Comment: PERF ORMED BY: [place] [address] PATHOLOGIST [employer]IVER SUAD ARREAGA M.D. Performed By: #### A DDONUAPLUS, CUU #### [address] pH (U) 5.5 [pH] Normal 5.0-9.0 [facility] Comment on above: Order Comment: Name Collection Type:: Clean-Voided Midstream Performed By: #### A DDONUAPLUS, CUU #### [place] [address] [place] Protein,Urine Negative Normal Negative [facility] Comment on above: Order Comment: Name Collection Type:: Clean-Voided Midstream Performed By: #### A DDONUAPLUS, CUU #### [address] RBC,Urine 1-2 Normal 0-4 [facility] Comment on above: Order Comment: Name Collection Type:: Clean-Voided Midstream Performed By: #### A DDONUAPLUS, CUU #### [place] [address] [place] Specificy Crum,Urine 1.020 Normal 1.001-1.03 0 [facility] Comment on above: Order Comment: Name Collection Type:: Clean-Voided Midstream Performed By: #### A DDONUAPLUS, CUU #### [place] [address] [place] Squamous Epithelial Cell,Urine 3-4 High 0-2 [facility] Comment on above: Order Comment: Name Collection Type:: Clean-Voided Midstream Performed By: #### A DDONUAPLUS, CUU #### [facility] [address] [place] [address] Urobilinogen,Urine Normal Normal Normal [facility] Comment on above: Order Comment: Name Collection Type:: Clean-Voided Midstream Performed By: #### A DDONUAPLUS, CUU #### [address] WBC,Urine 10-19 High 0-4 [facility] Comment on above: Order Comment: Name Collection Type:: Clean-Voided Midstream Performed By: #### A DDONUAPLUS, CUU #### [address] ECG 12 lead ECGon 08-28-2023 ECG [address] [facility] [place] [address] [place] [address] Electrocardiograph Report Signed Patient: Nicol Smith MR#: [id number] 9 : 1960 Acct:[id number] Age/Sex: 63 / F ADM Date: 08/28/23 Loc: Room: Type: [facility] Attending Dr: David Mcfarland II, MD [...] previous ECGs available Confirmed by NAHID PINEDA [facility] ([id number]) on 08/28/2023 10:26:43 PM Referred By: BARTOLO Electronically Signed By:KAMARI MANN MD FACMonica Transcribed By: MUS Signed By Jonathan Mann MD 08/28/232225 [facility] Eosinophils Auto (Bld) [#/Vo l]Ordered By: David Mcfarland on 08-28-2023 Eosinophils (Bld) [#/Vol] 0.1 10*3/uL 0.0-0.45 [facility] Eosinophils/100 WBC Auto (Bl d)Ordered By: David Mcfarland on 08-28-2023 Eosinophils/100 WBC (Bld) 1.0 % . [facility] Erythrocyte distribution wid th Auto (RBC) [Ratio]Ordered By: David Mcfarland on 08-28-2023 Erythrocyte distribution width (RBC) [Ratio] 17.5 % 11.9-15.3 [facility] Fructosamineon 08-28-2023 Fructosamine 205 umol/L Normal 0-285 [facility] Comment on above: Result Comment: Publ ished reference interval for apparently healthy subjects between age 20 and 60 is 205 - 285 umol/L and in a poorly controlled diabetic population is 228 - 563 umol/L with a mean of 396 umol/L. Performed at: [facility] [address] [id number] [employer] Supervisor: Luis Mukherjee PhD, Phone: [phone] PERFORMED BY: [place] [address] PATHOLOGIST [employer] SUAD ARREAGA M.D. Performed By: #### C BC, BMP #### [address] #### FRUC #### [facility] , Fructosamine [Moles/volume] in Serum or PlasmaOrdered By: David Mcfarland on 08-28-2023 Fructosamine [Moles/Vol] 205 umol/L 0-285 [facility] Comment on above: Published reference interval for apparently healthysubjects between age 20 and 60 is 205 - 285 umol/L and in apoorly controlled diabetic population is 228 - 563 umol/Lwith a mean of 396 umol/L.Performed at: [facility] [address] [id number] Director: Luis Mukherjee PhD, Phone: [phone] Glucose [Mass/volume] in Ser um or PlasmaOrdered By: David Mcfarland on 08-28-2023 Glucose [Mass/Vol] 98 mg/dL 70-[address] [facility] Comment on above: ADA recommended refe rence rangeRandom Glucose Reference Range is dependent on time and content of last meal. Glucose of more than 200 mg/dL in a nonstressed, ambulatory subject supports the diagnosis of Diabetes Mellitus. Hematocrit Auto (Bld) [Volum e fraction]Ordered By: David Mcfarland on 08-28-2023 Hematocrit (Bld) [Volume fraction] 36.9 % 34.0-46.4 [facility] Hemoglobin [Mass/volume] in BloodOrdered By: David Mcfarland on 08-28-2023 Hemoglobin (Bld) [Mass/Vol] 11.9 g/dL 11.8-15.4 [facility] Ketones Auto test strip (U) [Mass/Vol]Ordered By: David Mcfarland on 08-28-2023 Ketones (U) [Mass/Vol] Negative Negative [facility] Laboratory - UrinalysisOrder ed By: David Mcfarland on 08-28-2023 Hyaline casts LM Ql (Urine sed) 0-8 [LPF] 0-8 [facility] Leukocytes [#/volume] correc janell for nucleated erythrocytes in Blood by Automated counOrdered By: David Mcfarland on 08-28-2023 WBC corrected for nucl RBC Auto (Bld) [#/Vol] 6.4 10*3/uL 3.8-11.6 [facility] Lymphocytes Auto (Bld) [#/Vo l]Ordered By: David Mcfarland on 08-28-2023 Lymphocytes (Bld) [#/Vol] 1.6 10*3/uL 1.00-4.8 [facility] Lymphocytes/100 WBC Auto (Bl d)Ordered By: David Mcfarland on 08-28-2023 Lymphocytes/100 WBC (Bld) 25.3 % . [facility] MCH Auto (RBC) [Entitic mass ]Ordered By: David Mcfarland on 08-28-2023 MCH (RBC) [Entitic mass] 25.0 pg 24.7-34.3 [facility] MCHC Auto (RBC) [Mass/Vol]Or dered By: David Mcfarland on 08-28-2023 MCHC (RBC) [Mass/Vol] 32.1 g/dL 32.0-35.0 [facility] MCV Auto (RBC) [Entitic vol] Ordered By: David Mcfarland on 08-28-2023 MCV (RBC) [Entitic vol] 78.0 fL 80-100 [facility] Monocytes Auto (Bld) [#/Vol] Ordered By: David Mcfarland on 08-28-2023 Monocytes (Bld) [#/Vol] 0.5 10*3/uL 0.0-0.8 [facility] Monocytes/100 WBC Auto (Bld) Ordered By: David Mcfarland on 08-28-2023 Monocytes/100 WBC (Bld) 7.6 % . [facility] Neutrophils Auto (Bld) [#/Vo l]Ordered By: David Mcfarland on 08-28-2023 Neutrophils (Bld) [#/Vol] 4.2 10*3/uL 1.8-7.7 [facility] Neutrophils/100 WBC Auto (Bl d)Ordered By: David Mcfarland on 08-28-2023 Neutrophils/100 WBC (Bld) 65.0 % . [facility] Nitrite Test strip Ql (U)Ord ered By: David Mcfarland on 08-28-2023 Nitrite Ql (U) Negative Negative [facility] No Panel InformationOrdered By: David Mcfarland on 08-28-2023 Estimated GFR (CKD-EPI) > 60.0 mL/Min [facility] Creatinine Clearance (Chem N/A [facility] Nucleated erythrocytes [Pres ence] in Blood by Automated countOrdered By: David Mcfarland on 08-28-2023 Nucleated RBC Auto Ql (Bld) 0.1 /100{WBC} 0-0.5 [facility] PST Type and Screenon 2022 ABO and Rh group Nom (Bld) Blood group B Rh(D) positive Normal [facility] Comment on above: Order Comment: Date of Surgery: [id number] Platelet mean volume Auto (B ld) [Entitic vol]Ordered By: David Mcfarland on 08-28-2023 Platelet mean volume (Bld) [Entitic vol] 8.0 fL 6.3-10.7 [facility] Platelets Auto (Bld) [#/Vol] Ordered By: David Mcfarland on 08-28-2023 Platelets (Bld) [#/Vol] 387 10*3/uL 150-450 [facility] Potassium [Moles/volume] in Serum or PlasmaOrdered By: David Mcfarland on 08-28-2023 Potassium [Moles/Vol] 4.2 mmol/L 3.5-5.1 [facility] Protein Auto test strip (U) [Mass/Vol]Ordered By: David Mcfarland on 08-28-2023 Protein (U) [Mass/Vol] Negative Negative [facility] RBC Auto (Bld) [#/Vol]Ordere d By: David Mcfarland on 08-28-2023 RBC (Bld) [#/Vol] 4.74 10*6/uL 3.60-5.00 [facility] Serum or plasma anion gap de terminationOrdered By: David Mcfarland on 08-28-2023 Anion gap [Moles/Vol] 11.1 mmol/L 6.0-15.0 [facility] Sodium [Moles/volume] in Ser um or PlasmaOrdered By: David Mcfarland on 08-28-2023 Sodium [Moles/Vol] 140 mmol/L 136-[address] [facility] Specific gravity Auto test s trip (U) [Rel density]Ordered By: David Mcfarland on 08-28-2023 Specific gravity (U) [Rel density] 1.020 1.001-1.03 0 [facility] Squamous epithelial cells de tection in urine sediment by light microscopyOrdered By: David Mcfarland on 08-28-2023 Epithelial cells.squamous LM Ql (Urine sed) 3-4 [HPF] 0-2 [facility] Urea nitrogen [Mass/volume] in Serum or PlasmaOrdered By: David Mcfarland on 08-28-2023 Urea nitrogen [Mass/Vol] 17 mg/dL 7-25 [facility] Urine Cultureon 08-28-2023 Bacteria identified Cx Nom (U) 50,000 colonies/ml mixed bacterial skin contaminants 2 Days PERFORMED BY: [facility] [address] [place] [id number] PATHOLOGIST [employer]IVER SUAD ARREAGA M.D. Normal [facility] Comment on above: Performed By: #### A DDONUAJENNIFER, CUU ####[facility] [address] [place] [id number] [facility] Urine bacteria detection by automated methodOrdered By: David Mcfarland on 08-28-2023 Bacteria Auto Ql (U) None seen None Seen [facility] Urine clarity by refractomet ry automatedOrdered By: David Mcfarland on 08-28-2023 Clarity Refractometry automated (U) Clear Clear [facility] Urine culture routineOrdered By: David Mcfarland on 08-28-2023 Bacteria identified Cx Nom (U) 2 Days [facility] Urine glucose measurement by automated test strip (mass/volume)Ordered By: David Mcfarland on 08-28-2023 Glucose Auto test strip (U) [Mass/Vol] Normal mg/dL Normal [facility] Urine hemoglobin detection b y automated test stripOrdered By: David Mcfarland on 08-28-2023 Hemoglobin Auto test strip Ql (U) Negative Negative [facility] Urine leukocyte esterase det ection by automated test stripOrdered By: David Mcfarland on 08-28-2023 Leukocyte esterase Auto test strip Ql (U) 3+ Negative [facility] Urobilinogen Auto test strip (U) [Mass/Vol]Ordered By: David Mcfarland on 08-28-2023 Urobilinogen (U) [Mass/Vol] Normal mg/dL Normal [facility] WBC Auto (Bld) [#/Vol]Ordere d By: David Mcfarland on 08-28-2023 WBC (Bld) [#/Vol] 6.4 10*3/uL 3.8-11.[address] [facility] pH Auto test strip (U)Ordere d By: David Mcfarland on 08-28-2023 pH (U) 5.5 [pH] 5.0-9.0 [facility] XR hip RT min 2V(w/wo pelvis )*on 11-15-2023 XR hip RT min 2V(w/wo pelvis)* [facility] [place] [address] [place] [address] XRay Report Signed Patient: Nicol Smith MR#: [id number] 9 : 1960 Acct:[id number] Age/Sex: 63 / F ADM Date: 08/15/23 Loc: [place] Room: Type: [facility] Attending Dr: David Mcfarland II, MD [...] Matamoros Jr., D.O.08/15/2023 4:18 PM Dictation Location: [place] [address] Transcribed By: [facility] 08/15/23 161 Dictated By: Stalin Matamoros Jr, DO 08/15/23 1617 Signed By: 08/15/23 1618 Normal [facility] Office Visiton 07-16-2023 Follow-up visit [id number] Nicol Smith 1960 F Date Provider Department Center 07/16/2023 [facility] Family History Problem Relation Age of Onset Diabetes Father Heart failure Father Diabetes Paternal Grandmother Diabetes Paternal Grandfather Family Status - Relation Status Age at Father Paternal Grandmother Paternal Grandfather Level of Service:52847 SD OFFICE/OUTPATIENT ESTABLISHED MOD MDM 30-39 MIN Normal [facility] TSHon 01-19-2023 TSH 5.502 uIU/mL Critically high 0.358-3.74 0 [facility] Comment on above: Performed By: #### T SH ####[facility] [address] [place], [place] [address]Nc. Darrick Cao GTT 2 HRon 12-12-2022 Glucose [Mass/Vol] 117 mg/dL Critically high 74-106 T [facility] Comment on above: Performed By: #### G TT2 ####[facility] [address] [place], [place] [address]Fs. Adryyakov Nash Glucose [Mass/Vol] 227 mg/dL Normal [facility] Comment on above: Performed By: #### G TT2 ####[facility] [address] [place], [place] [address]Yq. Adryyakov Cao Glucose [Mass/Vol] 121 mg/dL Normal [facility] Comment on above: Performed By: #### G TT2 ####[facility] [address] [place], [place] [address]Sz. Darrick aCo TSHon 12-12-2022 TSH 6.852 uIU/mL Critically high 0.358-3.74 0 [facility] Comment on above: Performed By: #### P OCGLUC #### [facility] [address] [place], [place] [address] Dr. Darrick Cao Outside Colonoscopyon 2022 Outside Colonoscopy [id number]#[id number]:127 [facility] Reminderson 12-07-2022 Reminders - From: Yu Waters LPN To: GSN - Clinical; Sent: 12/07/2022 08:47:38 EST Show up: 11/08/2032 07:00:00 EST Subject: colonoscopy recall Due Date/Time: 12/06/2032 07:00:00 EST Reminder/Recall Patient is due for screening colonoscopy 12/06/2032. [facility] Consent for Procedure/Surger yon 11-09-2022 Consent for Procedure/Surgery [id number]#1.00CD:127 [facility] Consent for Procedure/Surgery [id number]#[id number]:127 Normal [facility] Facesheeton 11-09-2022 Facesheet [id number]#[id number]:127 Normal [facility] Ambulatory Visit Summaryon 0 11-08-2022 Ambulatory [...] Screening for malignant neoplasm of colon Normal [facility] MG MAMM SCREEN 3D BONNIE CADon 11-03-2022 MG MAMM SCREEN 3D BONNIE CAD Patient: NICOL SMITH Exam Date: 11/03/2022 : 1960 Gender:F Ordering : DR FRIEDA LOCKE . Admission #: [id number] Family : Order #: [id number] CLICK HERE TO VIEW EXAM RADIOLOGY REPORT [...] uterine cancer at age 52. LOCATION: [facility] BREAST COMPOSITION: Scattered areas fibroglandular density. FINDINGS: [...] Kelly MD on 11/03/2022 at 11:04 Normal [facility] XR DEXA BONE DENSITYon 11-03 XR DEXA [...] by: ARIELA SCHWAB Date: 2022-11-03 11:11 Normal [facility] Comprehensive Metabolic Pane yuli 10-30-2022 Urea nitrogen [Mass/Vol] 20 mg/dL Applico [facility] STinser Other Comprehensive Metabolic Panel Applico [facility] [employer] Other Comprehensive Metabolic Panel >60 [employer] Other Comprehensive Metabolic Panel 4.2 [employer] Other Albumin [Mass/Vol] 3.7 g/dL Normal 3.4-5.0 [employer] Other Comment on above: Performed By: #### T SH, CMP, LIPID ####[facility] [address] [place], [place] [address]EwMiguel Cao Albumin/Globulin [Mass ratio] 0.9 {ratio} Normal [facility] ST[employer] Other Comment on above: Performed By: #### T SH, CMP, LIPID ####[facility] [address] [place], [place] [address]HcMiguel Cao ALP [Catalytic activity/Vol] 112 U/L Normal 46-116 [facility] ST[employer] Other Comment on above: Performed By: #### T SH, CMP, LIPID ####[facility] [address] [place] [id number]. Darrick Cao ALT [Catalytic activity/Vol] 34 U/L Normal 14-59 [place] [employer] Other Comment on above: Performed By: #### T SH, CMP, LIPID ####[facility] [address] [place], [place] [address]Dw. Darrick Cao AST [Catalytic activity/Vol] 17 U/L Normal 15-37 [employer] Other Comment on above: Performed By: #### T SH, CMP, LIPID ####[facility] [address] [place] [phone]. Darrick Cao Bilirubin [Mass/Vol] 0.4 mg/dL Normal 0.2-1.0 [facility] [employer] Other Comment on above: Performed By: #### T SH, CMP, LIPID ####[facility] [address] [place] [address]Dr. Darrick Cao Calcium [Mass/Vol] 9.2 mg/dL Normal 8.5-10.1 [place] [employer] Other Comment on above: Performed By: #### T SH, CMP, LIPID ####[facility] [address] [place] [address]Dr. Darrick Cao Chloride [Moles/Vol] 105 mmol/L Normal 98-107 [facility] [employer] Other Comment on above: Performed By: #### T SH, CMP, LIPID ####[facility] [address] [place], [place] [address]Dr. Darrick Cao CO2 [Moles/Vol] 27.0 mmol/L Normal 21.0-32.0 [facility] [employer] Other Comment on above: Performed By: #### T SH, CMP, LIPID ####[facility] [address] [place], [place] [address]Dr. Darrick Cao Creatinine [Mass/Vol] 0.86 mg/dL Normal 0.55-1.02 [facility] [employer] Other Comment on above: Performed By: #### T SH, CMP, LIPID ####[facility] [address] [place] [phone]. Darrick Cao Glucose [Mass/Vol] 114 mg/dL Critically high 74-106 [facility] STinser Other Comment on above: Performed By: #### T SH, CMP, LIPID ####[facility] [address] [place] [phone]. Darrick Cao Potassium [Moles/Vol] 3.9 mmol/L Normal 3.5-5.1 [facility] STinser Other Comment on above: Performed By: #### T SH, CMP, LIPID ####[facility] [address] [place] [phone]. Darrick Cao Protein [Mass/Vol] 7.9 g/dL Normal 6.4-8.2 [facility] [employer] Other Comment on above: Performed By: #### T SH, CMP, LIPID ####[facility] [address] [place] [phone]. Darrick Cao Sodium [Moles/Vol] 143 mmol/L Normal 136-145 [facility] ST[employer] Other Comment on above: Performed By: #### T SH, CMP, LIPID ####[facility] [address] [place] [phone]. Darrick Cao FREE T4on 10-30-2022 Free T4 [Mass/Vol] 0.77 ng/dL Normal 0.76-1.46 [facility] Comment on above: Performed By: #### F T4 ####[facility] [address] [place] [phone]. Darrick Cao LIPID PROFILEon 10-30-2022 CHOL-HDL RATIO NORM SEE BELOW Normal [facility] Comment on above: Result Comment: 3.3 - 4.4 LOW RISK 4.4 - 7.1 AVERAGE RISK 7.1 - 11.0 MODERATE RISK >11.0 HIGH RISK Performed By: #### T SH, CMP, LIPID ####[facility] [address] [place], [place] [address]Nn. Darrick Cao Cholesterol in LDL [Mass/Vol] 84.6 mg/dL Normal [facility] Comment on above: Performed By: #### T SH, CMP, LIPID ####[facility] [address] [place], [place] [address]Zi. Darrick Cao HDL NORMAL > or = 60 mg/dl - LO W CARDIOVASCULAR RISK <40 mg/dl - HIGH CARDIOVASCULAR RISK Normal [facility] Comment on above: Performed By: #### T SH, CMP, LIPID ####[facility] [address] [place] [phone]. Adryyakov Cao LDL CALC NORMAL SEE BELOW Normal [facility] Comment on above: Result Comment: <100 mg/dl OPTIMAL 100 - 129 mg/dl NEAR OR ABOVE OPTIMAL 130 - 159 mg/dl BORDERLINE HIGH 160 - 189 mg/dl HIGH >190 mg/dl VERY HIGH Performed By: #### T SH, CMP, LIPID ####[facility] [address] [place] [phone]. Darrick Cao Triglyceride [Mass/Vol] 222 mg/dL Critically high <=150 [facility] Comment on above: Performed By: #### T SH, CMP, LIPID ####[facility] [address] [place] [phone]. Darrick Cao VLDL CALC 44.4 mg/dL Normal [facility] Comment on above: Performed By: #### T SH, CMP, LIPID ####[facility] [address] [place] [phone]. Darrick Cao Lipid Panelon 10-30-2022 Cholesterol in LDL Elph Qn 84.6 [employer] Other Lipid Panel 222 [employer] Other Lipid Panel 44.4 [employer] Other Cholesterol [Mass/Vol] 185 mg/dL Normal <=200 [employer] Other Comment on above: Performed By: #### T SH, CMP, LIPID ####[facility] [address] [place] [phone]. Darrick Cao Cholesterol in HDL [Mass/Vol] 56 mg/dL Normal 40-60 [employer] Other Comment on above: Performed By: #### T SH, CMP, LIPID ####[facility] [address] [place] [phone]. Darrick Cao Cholesterol.total/Cho lesterol in HDL [Mass ratio] 3.3 {ratio} Normal [employer] Other Comment on above: Performed By: #### T SH, CMP, LIPID ####[facility] [address] [place] [address]Dr. Darrick Cao PROF 14(COMP METB)on 023 Anion gap [Moles/Vol] 14.9 mmol/L Normal [facility] Comment on above: Performed By: #### T JASON, CMP, LIPID ####[facility] [address] [place] [phone]. Darrick Cao EGFR-AF ROMANIAN >60 Normal >=60 [facility] Comment on above: Performed By: #### T JASON, CMP, LIPID ####[facility] [address] [place] [address]Dr. Darrick Cao EGFR-NON AF ROMANIAN >60 Normal >=60 [facility] Comment on above: Performed By: #### T JASON, CMP, LIPID ####[facility] [address] [place] [phone]. Darrick Cao Globulin (S) [Mass/Vol] 4.2 g/dL Normal [facility] Comment on above: Performed By: #### T SH, CMP, LIPID ####[facility] [address] [place] [phone]. Darrick Cao Urea nitrogen [Mass/Vol] 20.0 mg/dL Critically high 7.0-18.0 [facility] Comment on above: Performed By: #### T SH, CMP, LIPID ####[facility] [address] [place] [phone] Cao Urea nitrogen/Creatinine [Mass ratio] 23.3 mg/mg Normal [facility] Comment on above: Performed By: #### T SH, CMP, LIPID ####[facility] [address] [place], [place] [address]YgMiguel Darrick Nash TSHon 10-30-2022 TSH 6.415 uIU/mL Critically high 0.358-3.74 0 [facility] Comment on above: Performed By: #### T SH, CMP, LIPID ####[facility] [address] [place], [place] [address]JbMiguel Cao Thyroid Stim Hormone w/Rflxo n 10-30-2022 Thyroid Stim Hormone w/Rflx 6.415 [employer] Other VITAMIN B12on 10-30-2022 Cobalamin (Vitamin B12) [Mass/Vol] 664.0 pg/mL Normal 193.0-986. 0 [facility] Comment on above: Performed By: #### V ITB12 #### [facility] [address], [place] [address] Dr. Darrick Cao Vitamin B12on 10-30-2022 Cobalamin (Vitamin B12) [Mass/Vol] 664 pg/mL [employer] Other Automated erythrocytes count in urine sediment (number/area)Ordered By: Waqas Pierce on 10-23-2022 RBC Auto (Urine sed) [#/Area] 0-1 [HPF] 0-4 [facility] Automated leukocytes count i n urine sediment (number/area)Ordered By: Waqas Pierce on 10-23-2022 WBC Auto (Urine sed) [#/Area] 10-19 [HPF] 0-4 [facility] Bilirubin Test strip Ql (U)O rdered By: Waqas Pierce on 10-23-2022 Bilirubin Ql (U) Negative Negative [facility] Color Auto (U)Ordered By: Shay Pierce on 10-23-2022 Color (U) Yellow Yellow [facility] Ketones Auto test strip (U) [Mass/Vol]Ordered By: Waqas Pierce on 10-23-2022 Ketones (U) [Mass/Vol] Negative Negative [facility] - UrinalysisOrder ed By: Waqas Pierce on 10-23-2022 Hyaline casts LM Ql (Urine sed) 0-8 [LPF] 0-8 [facility] Nitrite Test strip Ql (U)Ord ered By: Waqas Pierce on 10-23-2022 Nitrite Ql (U) Negative Negative [facility] Protein Auto test strip (U) [Mass/Vol]Ordered By: Waqas Pierce on 10-23-2022 Protein (U) [Mass/Vol] Negative Negative [facility] Specific gravity Auto test s trip (U) [Rel density]Ordered By: Waqas Pierce on 10-23-2022 Specific gravity (U) [Rel density] 1.016 1.001-1.03 0 [facility] Squamous epithelial cells de tection in urine sediment by light microscopyOrdered By: Waqas Pierce on 10-23-2022 Epithelial cells.squamous LM Ql (Urine sed) 5-9 [HPF] 0-2 [facility] Urine Cultureon 10-23-2022 Bacteria identified Cx Nom (U) [employer] Other Urine bacteria detection by automated methodOrdered By: Waqas Pierce on 10-23-2022 Bacteria Auto Ql (U) None seen None Seen [facility] Urine clarity by refractomet ry automatedOrdered By: Waqas Pierce on 10-23-2022 Clarity Refractometry automated (U) Clear Clear [facility] Urine glucose measurement by automated test strip (mass/volume)Ordered By: Waqas Pierce on 10-23-2022 Glucose Auto test strip (U) [Mass/Vol] Normal mg/dL Normal [facility] Urine hemoglobin detection b y automated test stripOrdered By: Waqas Pierce on 10-23-2022 Hemoglobin Auto test strip Ql (U) Negative Negative [facility] Urine leukocyte esterase det ection by automated test stripOrdered By: Waqas Pierce on 10-23-2022 Leukocyte esterase Auto test strip Ql (U) 3+ Negative [facility] Urobilinogen Auto test strip (U) [Mass/Vol]Ordered By: Waqas Pierce on 10-23-2022 Urobilinogen (U) [Mass/Vol] Normal mg/dL Normal [facility] pH Auto test strip (U)Ordere d By: Waqas Pierce on 10-23-2022 pH (U) 6.0 [pH] 5.0-9.0 [facility] A1C HEMOGLOBINon 10-13-2022 HbA1c (Bld) [Mass fraction] 5.9 % Applico [facility] [employer] Other HbA1c (Bld) [Mass fraction]o n 10-13-2022 A1C HEMOGLOBIN [facility] [employer] Other XR FOOT LT MIN 3 VIEWSon [...] by: ALEX RYAN Date: 2022-09-20 16:40 Normal [facility] Office Visiton 09-06-2022 Follow-up visit [id number] Nicol Smith 1960 F Date Provider Department Center 09/06/2022 [facility] Family History Problem Relation Age of Onset Diabetes Father Heart failure Father Diabetes Paternal Grandmother Diabetes Paternal Grandfather Family Status - Relation Status Age at Father Paternal Grandmother Paternal Grandfather Level of Service:50067 SD OFFICE/OUTPATIENT ESTABLISHED LOW MDM 20-29 MIN Normal [facility] XR LSPINE 2_3 VIEWSon 2021 XR LSPINE 2_3 VIEWS EXAMINATION: XR LSPI NE 2_3 VIEWS HISTORY: Low back pain COMPARISON: 09/26/2019 FINDINGS: BONES: Mild dextrocurvature. Moderate to severe spondylosis and facet osteoarthropathy DISC SPACES: Multilevel disc space narrowing most significant at L5-S1 PARASPINOUS: Negative. No paraspinous abnormality is seen. OTHER: Severe right hip osteoarthropathy with nghr-ga-muts articulation. Left hip arthroplasty IMPRESSION: Moderate to severe degenerative changes Electronically authenticated by: SHAWNEE KELLY Date: 2022-08-20 11:47 Normal [facility] PAP ACOG PANEL 2: 30 to 65on 06-13-2022 . . Normal [facility] Comment on above: Result Comment: Perf ormed at: WB Performed By: #### 4 [id number] ####[facility] [address] [place] [address]DrMiguel Cao Age Gdln ACOG Testing 30-65 Normal [facility] Comment on above: Performed By: #### 4 [id number] ####[facility] [address] [place], [place] [address]DrMiguel Cao DIAGNOSIS: Comment Normal [facility] Comment on above: Result Comment: NEGA TIVE FOR INTRAEPITHELIAL LESION OR MALIGNANCY. THIS SPECIMEN WAS RESCREENED PART OF OUR MACHINE OPERATOR PROGRAM. Performed at: WB Performed By: #### 4 [id number] ####[facility] [address] [place] [address]DrMiguel Cao HPV Aptima Negative Normal Negative [facility] Comment on above: Result Comment: This nucleic acid amplification test detects fourteen high-risk HPV types (16,18,31,33,35,39,45,51,52,56,58,59,66,68) without differentiation. Performed at: =G Performed By: #### 4 [id number] ####[facility] [address] [place] [address]DrMiguel Cao Methodology: Comment Normal [facility] Comment on above: Result Comment: This liquid based ThinPrep(R) pap test was screened with the use of an image guided system. Performed at: WB Performed By: #### 4 [id number] ####[facility] [address] [place] [address]DrMiguel Cao Note: Comment Normal [facility] Comment on above: Result Comment: The Pap smear is a screening test designed to aid in the detection of premalignant and malignant conditions of the uterine cervix. It is not a diagnostic procedure and should not be used as the sole means of detecting cervical cancer. Both false-positive and false-negative reports do occur. . Performed at: WB Performed By: #### 4 [id number] ####[facility] [address] [place] [phone]. Darrick Cao Performed by: Comment Normal [facility] Comment on above: Result Comment: Solange Ann, Pretzel Twister (ASCP) Performed at: WB Performed By: #### 4 [id number] ####[facility] [address] [place] [phone]. Darrick Cao QC reviewed by: Comment [facility] Comment on above: Result Comment: Navi Rush, Supervisory Pretzel Twister (ASCP) Performed at: WB Performed By: #### 4 [id number] ####[facility] [address] [place] [phone]. Darrick Cao Specimen adequacy: Comment Normal [facility] Comment on above: Result Comment: Sati sfactory for evaluation. Endocervical and/or squamous metaplastic cells (endocervical component) are present. Performed at: WB Performed By: #### 4 [id number] ####[facility] [address] [place] [phone]. Darrick Cao US PELVIS AND TRANSVAGon US [...] ARIELA SCHWAB Date: 2022-06-13 14:50 Normal [facility] ACID FAST SMEAR AND CXon Acid Fast Culture Negative Normal [facility] Comment on above: Result Comment: No a liliya fast bacilli isolated after 6 weeks. Performed By: #### A FB ####[facility] [address] [place] [address]Dr. Darrick Cao Acid Fast Smear Negative Normal [facility] Comment on above: Performed By: #### A FB ####[facility] [address] [place] [address]DrMiguel Cao AF[employer] Specimen Processing Tissue Grinding Normal [facility] Comment on above: Performed By: #### A FB ####[facility] [address] [place] [address]DrMiguel Cao FUNGAL CULTUREon 05-23-2022 Fungus (Mycology) Culture Final report Normal [facility] Comment on above: Performed By: #### C XFUN ####[facility] [address] [place] [address]Dr. Darrick Cao Fungus Stain Final report Normal [facility] Comment on above: Performed By: #### C XFUN ####[facility] [address] [place] [address]DrMiguel Cao Result 1 Comment Normal [facility] Comment on above: Result Comment: MAYE/ Calcofluor preparation: no fungus observed. Performed By: #### C XFUN ####[facility] [address] [place] [address]Dr. Darrick Cao Result Comment: No y east or mold isolated after 4 weeks. WOUND CULTUREon 04-28-2022 Bacteria identified Aer cx Nom (Unsp spec) Final report Normal [facility] Comment on above: Performed By: #### C XWND #### [facility] [address] [place] [address] [address] Darrick Cao Result 1 Comment Normal [facility] Comment on above: Result Comment: No g rowrian in 36 - 48 hours. Performed By: #### C XWND #### [facility] [address] [place] [address] Dr. Darrick Cao CULTURE WOUNDon 04-26-2022 CULTURE [...] S F Vancomycin 1 S F Normal [facility] Comment on above: Performed By: #### W OUNDCX ####[facility] [address] [place] [address]Dr. Darrick Cao CBC AUTO DIFFon 04-25-2022 BASO # 0.0 103/ul Normal 0.0-0.1 [facility] Comment on above: Performed By: #### C XWND #### [facility] [address] [place] [address] Dr. Darrick Cao Basophils/100 WBC (Bld) 0.5 % Normal 0.2-2.0 [facility] Comment on above: Performed By: #### C XWND #### [facility] [address] [place] [address] Dr. Darrick Cao EO # 0.1 103/ul Normal 0.0-0.7 [facility] Comment on above: Performed By: #### C XWND #### [facility] [address] [place] [address] [address] Darrick Cao Eosinophils/100 WBC (Bld) 1.1 % Normal 0.9-7.0 [facility] Comment on above: Performed By: #### C XWND #### [facility] [address] [place] [address] Dr. Darrick Cao Erythrocyte distribution width (RBC) [Ratio] 15.8 % Critically high 11.0-15.0 [facility] Comment on above: Performed By: #### C XWND #### [facility] [facility] [address] [place] [address] Dr. Darrick Cao Hematocrit (Bld) [Volume fraction] 31.7 % Critically low 36.0-48.0 [facility] Comment on above: Performed By: #### C XWND #### [facility] [address] [place] [address] Dr. Darrick Cao Hemoglobin (Bld) [Mass/Vol] 10.1 g/dL Critically low 12.0-16.0 [facility] Comment on above: Performed By: #### C XWND #### [facility] [address] [place] [address] Dr. Darrick Cao IG # 0.02 10e3/ul Normal 0.00-0.03 [facility] Comment on above: Performed By: #### C XWND #### [facility] [address] [place] [address] Dr. Darrick Cao IG % 0.3 % Normal 0.0-0.5 [facility] Comment on above: Performed By: #### C XWND #### [facility] [address] [place] [address] Dr. Darrick Cao LYMPH # 1.8 103/ul Normal 1.2-3.8 [facility] Comment on above: Performed By: #### C XWND #### [facility] [address] [place] [address] Dr. Darrick Cao Lymphocytes/100 WBC (Bld) 24.3 % Normal 20.5-60.0 [facility] Comment on above: Performed By: #### C XWND #### [facility] [address] [place] [address] Dr. Darrick Cao MANUAL DIFF REQ NO Normal [facility] Comment on above: Performed By: #### C XWND #### [facility] [address] [place] [address] Dr. Darrick Cao MCH (RBC) [Entitic mass] 28.0 pg Normal 26.7-34.0 [facility] Comment on above: Performed By: #### C XWND #### [facility] [address] [place] [address] Dr. Darrick Cao MCHC (RBC) [Mass/Vol] 31.9 g/dL Normal 29.9-35.2 [facility] Comment on above: Performed By: #### C XWND #### [facility] [address] [place] [address] Dr. Darrick Cao MCV (RBC) [Entitic vol] 87.8 fL Normal 81.0-99.0 [facility] Comment on above: Performed By: #### C XWND #### [facility] [address] [place] [address] Dr. Darrick Cao MONO # 0.5 103/ul Normal 0.3-0.8 [facility] Comment on above: Performed By: #### C XWND #### [facility] [address] [place] [address] Dr. Darrick Cao Monocytes/100 WBC (Bld) 7.2 % Normal 1.7-12.0 [facility] Comment on above: Performed By: #### C XWND #### [facility] [address] [place] [address] Dr. Darrick Cao NEUT # 5.0 103/ul Normal 1.4-6.5 [facility] Comment on above: Performed By: #### C XWND #### [facility] [address] [place] [address] Dr. Darrick Cao Neutrophils/100 WBC (Bld) 66.6 % Normal 43.0-75.0 [facility] Comment on above: Performed By: #### C XWND #### [facility] [address] [place] [address] Dr. Darrick Cao Platelet mean volume (Bld) [Entitic vol] 9.6 fL Normal 9.5-13.5 [facility] Comment on above: Performed By: #### C XWND #### [facility] [address] [place] [address] Dr. Darrick Cao PLT 295 103/ul Normal 150-450 [facility] Comment on above: Performed By: #### C XWND #### [facility] [address] [address] [address] Darrick Cao RBC 3.61 106/ul Critically low 4.20-5.40 [facility] Comment on above: Performed By: #### C XWND #### [facility] [address] [address] [address] Darrick Cao WBC 7.5 103/ul Normal 4.0-11.0 [facility] Comment on above: Performed By: #### C XWND #### [facility] [address] [address] [address] Darrick Cao ER URINE PROFILEon 2 Bilirubin Ql (U) Negative Normal NEGATIVE [facility] Comment on above: Performed By: #### U MICRO, ERUR ####[facility] [address] [place] [address]Dr. Darrick Cao Clarity (U) CLEAR Normal CLEAR [facility] Comment on above: Performed By: #### U MICRO, ERUR ####[facility] [address] [place] [address]Dr. Darrick Cao Color (U) LT. YELLOW Normal YELLOW [facility] Comment on above: Performed By: #### U MICRO, ERUR ####[facility] [address] [place] [address]Dr. Darrick Cao ERUAHD A micrscopic examina tion will be performed if indicated. Normal [facility] Comment on above: Performed By: #### U MICRO, ERUR ####[facility] [address] [place] [address]Dr. Darrick Cao Glucose Ql (U) Negative Normal NEGATIVE [facility] Comment on above: Performed By: #### U MICRO, ERUR ####[facility] [address] [place] [address]Dr. Darrick Cao Hemoglobin Ql (U) SMALL Abnormal NEGATIVE [facility] Comment on above: Performed By: #### U MICRO, ERUR ####[facility] [address] [place] [address]Dr. Darrick Cao Ketones Ql (U) Negative Normal NEGATIVE [facility] Comment on above: Performed By: #### U MICRO, ERUR ####[facility] [address] [place] [address]Dr. Darrick Cao LEUKOCYTES Negative Normal NEGATIVE [facility] Comment on above: Performed By: #### U MICRO, ERUR ####[facility] [address] [place] [address]Dr. Darrick Cao Nitrite Ql (U) Negative Normal NEGATIVE [facility] Comment on above: Performed By: #### U MICRO, ERUR ####[facility] [address] [place] [address]Dr. Darrick Cao pH (U) 6.0 [pH] Normal 5-9 [facility] Comment on above: Performed By: #### U MICRO, ERUR ####[facility] [address] [place] [address]Dr. Darrick Cao SPEC GRAVITY 1.020 Normal 1.005-<=1. 025 [facility] Comment on above: Performed By: #### U MICRO, ERUR ####[facility] [address] [place], [place] [address]Dr. Darrick Cao UA PROTEIN Negative Normal NEGATIVE/ TRACE [facility] Comment on above: Performed By: #### U MICRO, ERUR ####[facility] [address] [place] [address]Dr. Darrick Cao UR MICRO IND INDICATED Normal [facility] Comment on above: Performed By: #### U MICRO, ERUR ####[facility] [address] [place] [address]Dr. Darrick Cao Urobilinogen Qn (U) 0.2 {Larissa'U}/dL Normal 0.2 - 1. 0 [facility] Comment on above: Performed By: #### U MICRO, ERUR ####[facility] [address] [place] [address]Dr. Darrick Cao POINT OF CARE GLUCOSEon 07-2 Glucose [Mass/Vol] 118 mg/dL Critically high 74-106 [facility] Comment on above: Performed By: #### P OCGLUC ####[facility] [address] [place] [address]Dr. Darrick Cao PROF 14(COMP METB)on 022 Albumin [Mass/Vol] 2.9 g/dL Critically low 3.4-5.0 [facility] Comment on above: Performed By: #### P OCGLUC #### [facility] [address] [address] [address] Darrick Cao Albumin/Globulin [Mass ratio] 0.8 {ratio} Normal [facility] Comment on above: Performed By: #### P OCGLUC #### [facility] [address] [address] [address] Darrick Cao ALP [Catalytic activity/Vol] 113 U/L Normal 46-116 [facility] Comment on above: Performed By: #### P OCGLUC #### [facility] [address] [address] [address] Darrick Cao ALT [Catalytic activity/Vol] 56 U/L Normal 14-59 [facility] Comment on above: Performed By: #### P OCGLUC #### [facility] [address] [address] [address] Darrick Cao Anion gap [Moles/Vol] 8.8 mmol/L Normal [facility] Comment on above: Performed By: #### P OCGLUC #### [facility] [address] [address] [address] Darrick Cao AST [Catalytic activity/Vol] 30 U/L Normal 15-37 [facility] Comment on above: Performed By: #### P OCGLUC #### [facility] [address] [address] [address] Darrick Cao Bilirubin [Mass/Vol] 0.3 mg/dL Normal 0.2-1.0 [facility] Comment on above: Performed By: #### P OCGLUC #### [facility] [address] [address] [address] Darrick Cao Calcium [Mass/Vol] 8.6 mg/dL Normal 8.5-10.1 [facility] Comment on above: Performed By: #### P OCGLUC #### [facility] [address] [address] [address] Darrick Cao Chloride [Moles/Vol] 105 mmol/L Normal 98-107 [facility] Comment on above: Performed By: #### P OCGLUC #### [facility] [address] [address] [address] Darrick Cao CO2 [Moles/Vol] 30.4 mmol/L Normal 21.0-32.0 [facility] Comment on above: Performed By: #### P OCGLUC #### [facility] [address] [address] [address] Darrick Cao Creatinine [Mass/Vol] 0.82 mg/dL Normal 0.55-1.02 [facility] Comment on above: Performed By: #### P OCGLUC #### [facility] [address] [address] [address] Darrick Cao EGFR-AF ROMANIAN >60 Normal >=60 [facility] Comment on above: Performed By: #### P OCGLUC #### [facility] [address] [address] [address] Darrick Cao EGFR-NON AF ROMANIAN >60 Normal >=60 [facility] Comment on above: Performed By: #### P OCGLUC #### [facility] [address] [address] [address] Darrick Cao Globulin (S) [Mass/Vol] 3.6 g/dL Normal [facility] Comment on above: Performed By: #### P OCGLUC #### [facility] [address] [address] [address] Darrick Cao Glucose [Mass/Vol] 103 mg/dL Normal 74-106 [facility] Comment on above: Performed By: #### P OCGLUC #### [facility] [address] [address] [address] Darrick Cao Potassium [Moles/Vol] 4.2 mmol/L Normal 3.5-5.1 [facility] Comment on above: Performed By: #### P OCGLUC #### [facility] [address] [address] [address] Darrick Cao Protein [Mass/Vol] 6.5 g/dL Normal 6.4-8.2 [facility] Comment on above: Performed By: #### P OCGLUC #### [facility] [address] [address] [address] Darrick Cao Sodium [Moles/Vol] 140 mmol/L Normal 136-145 [facility] Comment on above: Performed By: #### P OCGLUC #### [facility] [address] [address] [address] Darrick Cao Urea nitrogen [Mass/Vol] 11.0 mg/dL Normal 7.0-18.0 [facility] Comment on above: Performed By: #### P OCGLUC #### [facility] [address] [address] [address] Darrick Cao Urea nitrogen/Creatinine [Mass ratio] 13.4 mg/mg Normal [facility] Comment on above: Performed By: #### P OCGLUC #### [facility] [address] [address] [address] Darrick Cao URINE MICROSCOPIC ONLYon BACTERIA NONE SEEN Normal NONE SEEN [facility] Comment on above: Performed By: #### U MICRO, ERUR ####[facility] [address] [place] [address]DrMiguel Cao Bacteria identified Cx Nom (U) NOT INDICATED Normal [facility] Comment on above: Performed By: #### U MICRO, ERUR ####[facility] [address] [place] [address]DrMiguel Cao CAST NONE SEEN Normal NONE SEEN [facility] Comment on above: Performed By: #### U MICRO, ERUR ####[facility] [address] [place] [address]DrMiguel Cao Crystals LM Nom (Urine sed) NONE SEEN Normal NONE SEEN [facility] Comment on above: Performed By: #### U MICRO, ERUR ####[facility] [address] [place] [id number]. Darrick Cao Epithelial cells LM Ql (Urine sed) RARE Normal NONE SEEN /RARE [facility] Comment on above: Performed By: #### U MICRO, ERUR ####[facility] [address] [place] [address]Dr. Darrick Cao MUCOUS NONE SEEN Normal NONE SEEN [facility] Comment on above: Performed By: #### U MICRO, ERUR ####[facility] [address] [place] [address]Dr. Darrick Cao RBC 5-10 Abnormal 0-2 [facility] Comment on above: Performed By: #### U MICRO, ERUR ####[facility] [address] [place] [address]Dr. Darrick Cao WBC 0-2 Abnormal NONE SEEN [facility] Comment on above: Performed By: #### U MICRO, ERUR ####[facility] [address] [place] [address]Dr. Darrick Cao XR CHEST 2 Von 04-25-2022 [...] AMY FOWLER Date: 2022-04-25 20:07 Normal [facility] CBC AUTO DIFFon 04-24-2022 BASO # 0.1 103/ul Normal 0.0-0.1 [facility] Comment on above: Performed By: #### P OCGLUC #### [facility] [address] [address] [address] Darrick Cao Basophils/100 WBC (Bld) 0.8 % Normal 0.2-2.0 [facility] Comment on above: Performed By: #### P OCGLUC #### [facility] [address] [place] [address] Dr. Darrick Cao EO # 0.1 103/ul Normal 0.0-0.7 [facility] Comment on above: Performed By: #### P OCGLUC #### [facility] [address] [place] [address] Dr. Darrick Cao Eosinophils/100 WBC (Bld) 1.9 % Normal 0.9-7.0 [facility] Comment on above: Performed By: #### P OCGLUC #### [facility] [address] [place] [address] Dr. Darrick Cao Erythrocyte distribution width (RBC) [Ratio] 15.6 % Critically high 11.0-15.0 [facility] Comment on above: Performed By: #### P OCGLUC #### [facility] [address] [place] [address] Dr. Darrick Cao Hematocrit (Bld) [Volume fraction] 35.4 % Critically low 36.0-48.0 [facility] Comment on above: Performed By: #### P OCGLUC #### [facility] [address] [place] [address] Dr. Darrick aCo Hemoglobin (Bld) [Mass/Vol] 11.4 g/dL Critically low 12.0-16.0 [facility] Comment on above: Performed By: #### P OCGLUC #### [facility] [address] [place] [address] Dr. Darrick Cao IG # 0.02 10e3/ul Normal 0.00-0.03 [facility] Comment on above: Performed By: #### P OCGLUC #### [facility] [address] [place] [address] Dr. Darrick Cao IG % 0.3 % Normal 0.0-0.5 [facility] Comment on above: Performed By: #### P OCGLUC #### [facility] [address] [place] [address] Dr. Darrick Cao LYMPH # 1.9 103/ul Normal 1.2-3.8 [facility] Comment on above: Performed By: #### P OCGLUC #### [facility] [address] [address] [address] Darrick Cao Lymphocytes/100 WBC (Bld) 30.2 % Normal 20.5-60.0 [facility] Comment on above: Performed By: #### P OCGLUC #### [facility] [address] [address] [address] Darrick Cao MANUAL DIFF REQ NO Normal [facility] Comment on above: Performed By: #### P OCGLUC #### [facility] [address] [address] [address] Darrick Cao MCH (RBC) [Entitic mass] 27.9 pg Normal 26.7-34.0 [facility] Comment on above: Performed By: #### P OCGLUC #### [facility] [address] [place] [address] Dr. Darrick Cao MCHC (RBC) [Mass/Vol] 32.2 g/dL Normal 29.9-35.2 [facility] Comment on above: Performed By: #### P OCGLUC #### [facility] [address] [address] [address] Darrick Cao MCV (RBC) [Entitic vol] 86.6 fL Normal 81.0-99.0 [facility] Comment on above: Performed By: #### P OCGLUC #### [facility] [address] [place] [address] Dr. Darrick Cao MONO # 0.6 103/ul Normal 0.3-0.8 [facility] Comment on above: Performed By: #### P OCGLUC #### [facility] [address] [place] [address] Dr. Darrick Cao Monocytes/100 WBC (Bld) 9.0 % Normal 1.7-12.0 [facility] Comment on above: Performed By: #### P OCGLUC #### [facility] [address] [place] [address] Dr. Darrick Cao NEUT # 3.7 103/ul Normal 1.4-6.5 [facility] Comment on above: Performed By: #### P OCGLUC #### [facility] [address] [place] [address] Dr. Darrick Cao Neutrophils/100 WBC (Bld) 57.8 % Normal 43.0-75.0 [facility] Comment on above: Performed By: #### P OCGLUC #### [facility] [address] [place] [address] Dr. Darrick Cao Platelet mean volume (Bld) [Entitic vol] 9.5 fL Normal 9.5-13.5 [facility] Comment on above: Performed By: #### P OCGLUC #### [facility] [address] [place] [address] Dr. Darrick Cao PLT 256 103/ul Normal 150-450 [facility] Comment on above: Performed By: #### P OCGLUC #### [facility] [address] [place] [address] Dr. Darrick Cao RBC 4.09 106/ul Critically low 4.20-5.40 [facility] Comment on above: Performed By: #### P OCGLUC #### [facility] [address] [place] [address] Dr. Darrick Cao WBC 6.3 103/ul Normal 4.0-11.0 [facility] Comment on above: Performed By: #### P OCGLUC #### [facility] [address] [place] [address] Dr. Darrick Cao GRAM STAINon 04-24-2022 COMMENTS NO ORGANISMS OBSERVED Normal [facility] Comment on above: Performed By: #### C XWND #### [facility] [address] [place] [address] Dr. Darrick Cao DIPHTHEROIDS Normal [facility] Comment on above: Performed By: #### C XWND #### [facility] [address] [place] [address] Dr. Darrick Cao EPITHELIALS Normal [facility] Comment on above: Performed By: #### C XWND #### [facility] [address] [place] [address] Dr. Darrick Cao FUNGAL ELEMENTS Normal [facility] Comment on above: Performed By: #### C XWND #### [facility] [address] [address] [address] Darrick Cao GRAM NEG BACILLI Normal [facility] Comment on above: Performed By: #### C XWND #### [facility] [address] [address] [address] Darrick Cao GRAM NEG DIPPLOCOCCI Normal [facility] Comment on above: Performed By: #### C XWND #### [facility] [address] [address] [address] Darrick Cao GRAM POS BACILLI Normal [facility] Comment on above: Performed By: #### C XWND #### [facility] [address] [address] [address] Darrick Cao GRAM POSITIVE COCCI Normal [facility] Comment on above: Performed By: #### C XWND #### [facility] [address] [address] [address] Darrick Cao GRAM STAIN SOURCE Post irrigation left foot Normal [facility] Comment on above: Performed By: #### C XWND #### [facility] [address] [address] [address] Darrick Cao GS_DIPTH Normal [facility] Comment on above: Performed By: #### C XWND #### [facility] [address] [address] [address] Darrick Cao WBC NONE SEEN Normal [facility] Comment on above: Performed By: #### C XWND #### [facility] [address] [address] [address] Darrick Cao POINT OF CARE GLUCOSEon 07-2 Glucose [Mass/Vol] 132 mg/dL Critically high 74-106 [facility] Comment on above: Performed By: #### P OCGLUC #### [facility] [address] [address] [address] Darrick Cao Glucose [Mass/Vol] 105 mg/dL Normal 74-106 [facility] Comment on above: Performed By: #### P OCGLUC ####[facility] [address] [place] [address]Dr. Darrick Cao PROF 14(COMP METB)on 022 Albumin [Mass/Vol] 2.9 g/dL Critically low 3.4-5.0 [facility] Comment on above: Performed By: #### P OCGLUC #### [facility] [address] [address] [address] Darrick Cao Albumin/Globulin [Mass ratio] 0.8 {ratio} Normal [facility] Comment on above: Performed By: #### P OCGLUC #### [facility] [address] [address] [address] Darrick Cao ALP [Catalytic activity/Vol] 122 U/L Critically high 46-116 [facility] Comment on above: Performed By: #### P OCGLUC #### [facility] [address] [address] [address] Darrick Cao ALT [Catalytic activity/Vol] 65 U/L Critically high 14-59 [facility] Comment on above: Performed By: #### P OCGLUC #### [facility] [address] [address] [address] Darrick Cao Anion gap [Moles/Vol] 12.2 mmol/L Normal [facility] Comment on above: Performed By: #### P OCGLUC #### [facility] [address] [address] [address] Darrick Cao AST [Catalytic activity/Vol] 28 U/L Normal 15-37 [facility] Comment on above: Performed By: #### P OCGLUC #### [facility] [address] [address] [address] Darrick Cao Bilirubin [Mass/Vol] 0.3 mg/dL Normal 0.2-1.0 [facility] Comment on above: Performed By: #### P OCGLUC #### [facility] [address] [address] [address] Darrick Cao Calcium [Mass/Vol] 8.5 mg/dL Normal 8.5-10.1 [facility] Comment on above: Performed By: #### P OCGLUC #### [facility] [address] [address] [address] Darrick Cao Chloride [Moles/Vol] 107 mmol/L Normal 98-107 [facility] Comment on above: Performed By: #### P OCGLUC #### [facility] [address] [address] [address] Darrick Cao CO2 [Moles/Vol] 25.9 mmol/L Normal 21.0-32.0 [facility] Comment on above: Performed By: #### P OCGLUC #### [facility] [address] [address] [address] Darrick Cao Creatinine [Mass/Vol] 0.87 mg/dL Normal 0.55-1.02 [facility] Comment on above: Performed By: #### P OCGLUC #### [facility] [address] [address] [address] Darrick Cao EGFR-AF ROMANIAN >60 Normal >=60 [facility] Comment on above: Performed By: #### P OCGLUC #### [facility] [address] [address] [address] Darrick Cao EGFR-NON AF ROMANIAN >60 Normal >=60 [facility] Comment on above: Performed By: #### P OCGLUC #### [facility] [address] [address] [address] Darrick Cao Globulin (S) [Mass/Vol] 3.8 g/dL Normal [facility] Comment on above: Performed By: #### P OCGLUC #### [facility] [address] [address] [address] Darrick Cao Glucose [Mass/Vol] 107 mg/dL Critically high 74-106 [facility] Comment on above: Performed By: #### P OCGLUC #### [facility] [address] [address] [address] Darrick Cao Potassium [Moles/Vol] 4.1 mmol/L Normal 3.5-5.1 [facility] Comment on above: Performed By: #### P OCGLUC #### [facility] [address] [address] [address] Darrick Cao Protein [Mass/Vol] 6.7 g/dL Normal 6.4-8.2 [facility] Comment on above: Performed By: #### P OCGLUC #### [facility] [address] [place] [address] Dr. Darrick Cao Sodium [Moles/Vol] 141 mmol/L Normal 136-145 [facility] Comment on above: Performed By: #### P OCGLUC #### [facility] [address] [place] [address] Dr. Darrick Cao Urea nitrogen [Mass/Vol] 10.0 mg/dL Normal 7.0-18.0 [facility] Comment on above: Performed By: #### P OCGLUC #### [facility] [address] [place] [address] Dr. Darrick Cao Urea nitrogen/Creatinine [Mass ratio] 11.5 mg/mg Normal [facility] Comment on above: Performed By: #### P OCGLUC #### [facility] [address] [place] [address] Dr. Darrick Cao VANCOMYCIN TROUGHon 04-24-20 VANCOMYCIN TROUGH 9.6 ug/ml Normal 5.0-20.0 [facility] Comment on above: Performed By: #### V ANCT #### [facility] [address] [place] [address] Dr. Darrick Cao CBC AUTO DIFFon 04-23-2022 BASO # 0.1 103/ul Normal 0.0-0.1 [facility] Comment on above: Performed By: #### C XWND #### [facility] [address] [place] [address] Dr. Darrick Cao Basophils/100 WBC (Bld) 0.6 % Normal 0.2-2.0 [facility] Comment on above: Performed By: #### C XWND #### [facility] [address] [place] [address] Dr. Darrick Cao EO # 0.1 103/ul Normal 0.0-0.7 [facility] Comment on above: Performed By: #### C XWND #### [facility] [address] [place] [address] Dr. Darrick Cao Eosinophils/100 WBC (Bld) 0.6 % Critically low 0.9-7.0 [facility] Comment on above: Performed By: #### C XWND #### [facility] [address] [place] [address] Dr. Darrick Cao Erythrocyte distribution width (RBC) [Ratio] 15.8 % Critically high 11.0-15.0 [facility] Comment on above: Performed By: #### C XWND #### [facility] [address] [place] [address] Dr. Darrick Cao Hematocrit (Bld) [Volume fraction] 34.0 % Critically low 36.0-48.0 [facility] Comment on above: Performed By: #### C XWND #### [facility] [address] [place] [address] Dr. Darrick Cao Hemoglobin (Bld) [Mass/Vol] 11.0 g/dL Critically low 12.0-16.0 [facility] Comment on above: Performed By: #### C XWND #### [facility] [address] [place] [address] Dr. Darrick Cao IG # 0.03 10e3/ul Normal 0.00-0.03 [facility] Comment on above: Performed By: #### C XWND #### [facility] [address] [place] [address] Dr. Darrick Cao IG % 0.4 % Normal 0.0-0.5 [facility] Comment on above: Performed By: #### C XWND #### [facility] [address] [place] [address] Dr. Darrick Cao LYMPH # 1.6 103/ul Normal 1.2-3.8 [facility] Comment on above: Performed By: #### C XWND #### [facility] [address] [place] [address] Dr. Darrick Cao Lymphocytes/100 WBC (Bld) 19.6 % Critically low 20.5-60.0 [facility] Comment on above: Performed By: #### C XWND #### [facility] [address] [address] [address] Darrick Cao MANUAL DIFF REQ NO Normal [facility] Comment on above: Performed By: #### C XWND #### [facility] [address] [place] [address] Dr. Darrick Cao MCH (RBC) [Entitic mass] 28.1 pg Normal 26.7-34.0 [facility] Comment on above: Performed By: #### C XWND #### [facility] [address] [place] [address] Dr. Darrick Cao MCHC (RBC) [Mass/Vol] 32.4 g/dL Normal 29.9-35.2 [facility] Comment on above: Performed By: #### C XWND #### [facility] [address] [place] [address] Dr. Darrick Cao MCV (RBC) [Entitic vol] 87.0 fL Normal 81.0-99.0 [facility] Comment on above: Performed By: #### C XWND #### [facility] [address] [place] [address] Dr. Darrick Cao MONO # 0.8 103/ul Normal 0.3-0.8 [facility] Comment on above: Performed By: #### C XWND #### [facility] [address] [place] [address] Dr. Darrick Cao Monocytes/100 WBC (Bld) 10.3 % Normal 1.7-12.0 [facility] Comment on above: Performed By: #### C XWND #### [facility] [address] [place] [address] Dr. Darrick Cao NEUT # 5.4 103/ul Normal 1.4-6.5 [facility] Comment on above: Performed By: #### C XWND #### [facility] [address] [place] [address] Dr. Darrick Cao Neutrophils/100 WBC (Bld) 68.5 % Normal 43.0-75.0 [facility] Comment on above: Performed By: #### C XWND #### [facility] [address] [address] [address] Darrick Cao Platelet mean volume (Bld) [Entitic vol] 9.9 fL Normal 9.5-13.5 [facility] Comment on above: Performed By: #### C XWND #### [facility] [address] [address] [address] Darrick Cao PLT 276 103/ul Normal 150-450 [facility] Comment on above: Performed By: #### C XWND #### [facility] [address] [address] [address] Darrick Cao RBC 3.91 106/ul Critically low 4.20-5.40 [facility] Comment on above: Performed By: #### C XWND #### [facility] [address] [address] [address] Darrick Cao WBC 7.9 103/ul Normal 4.0-11.0 [facility] Comment on above: Performed By: #### C XWND #### [facility] [address] [address] [address] Darrick Cao POINT OF CARE GLUCOSEon 04-01 Glucose [Mass/Vol] 138 mg/dL Critically high 74-106 [facility] Comment on above: Performed By: #### P OCGLUC ####[facility] [address] [id number]. Darrick Cao Glucose [Mass/Vol] 151 mg/dL Critically high 74-106 [facility] Comment on above: Performed By: #### P OCGLUC #### [facility] [address] [address] [address] Darrick Cao Glucose [Mass/Vol] 141 mg/dL Critically high 74-106 [facility] Comment on above: Performed By: #### P OCGLUC ####[facility] [address] [id number]. Darrick Cao PROF 14(COMP METB)on 022 Albumin [Mass/Vol] 3.0 g/dL Critically low 3.4-5.0 [facility] Comment on above: Performed By: #### C XWND #### [facility] [address] [place] [address] Dr. Darrick Cao Albumin/Globulin [Mass ratio] 0.9 {ratio} Normal [facility] Comment on above: Performed By: #### C XWND #### [facility] [address] [place] [address] Dr. Darrick Cao ALP [Catalytic activity/Vol] 128 U/L Critically high 46-116 [facility] Comment on above: Performed By: #### C XWND #### [facility] [address] [place] [address] Dr. Darrick Cao ALT [Catalytic activity/Vol] 71 U/L Critically high 14-59 [facility] Comment on above: Performed By: #### C XWND #### [facility] [address] [place] [address] Dr. Darrick Cao Anion gap [Moles/Vol] 13.1 mmol/L Normal [facility] Comment on above: Performed By: #### C XWND #### [facility] [address] [place] [address] Dr. Darrick Cao AST [Catalytic activity/Vol] 50 U/L Critically high 15-37 [facility] Comment on above: Performed By: #### C XWND #### [facility] [address] [place] [address] Dr. Darrick Cao Bilirubin [Mass/Vol] 0.3 mg/dL Normal 0.2-1.0 [facility] Comment on above: Performed By: #### C XWND #### [facility] [address] [place] [address] Dr. Darrick Cao Calcium [Mass/Vol] 8.2 mg/dL Critically low 8.5-10.1 [facility] Comment on above: Performed By: #### C XWND #### [facility] [address] [place] [address] Dr. Darrick Cao Chloride [Moles/Vol] 110 mmol/L Critically high 98-107 [facility] Comment on above: Performed By: #### C XWND #### [facility] [address] [address] [address] Darrick Cao CO2 [Moles/Vol] 23.4 mmol/L Normal 21.0-32.0 [facility] Comment on above: Performed By: #### C XWND #### [facility] [address] [address] [address] Darrick Cao Creatinine [Mass/Vol] 0.96 mg/dL Normal 0.55-1.02 [facility] Comment on above: Performed By: #### C XWND #### [facility] [address] [place] [address] Dr. Darrick Cao EGFR-AF ROMANIAN >60 Normal >=60 [facility] Comment on above: Performed By: #### C XWND #### [facility] [address] [address] [address] Darrick Cao EGFR-NON AF ROMANIAN 59 mL/min/1.73m2 Critically low >=60 [facility] Comment on above: Performed By: #### C XWND #### [facility] [address] [place] [address] Dr. Darrick Cao Globulin (S) [Mass/Vol] 3.3 g/dL Normal [facility] Comment on above: Performed By: #### C XWND #### [facility] [address] [address] [address] Darrick Cao Glucose [Mass/Vol] 116 mg/dL Critically high 74-106 [facility] Comment on above: Performed By: #### C XWND #### [facility] [address] [address] [address] Darrick Cao Potassium [Moles/Vol] 4.5 mmol/L Normal 3.5-5.1 [facility] Comment on above: Performed By: #### C XWND #### [facility] [address] [address] [address] Darrick Cao Protein [Mass/Vol] 6.3 g/dL Critically low 6.4-8.2 [facility] Comment on above: Performed By: #### C XWND #### [facility] [address] [place] [address] Dr. Darrick Cao Sodium [Moles/Vol] 142 mmol/L Normal 136-145 [facility] Comment on above: Performed By: #### C XWND #### [facility] [address] [place] [address] Dr. Darrick Cao Urea nitrogen [Mass/Vol] 14.0 mg/dL Normal 7.0-18.0 [facility] Comment on above: Performed By: #### C XWND #### [facility] [address] [place] [address] Dr. Darrick Cao Urea nitrogen/Creatinine [Mass ratio] 14.6 mg/mg Normal [facility] Comment on above: Performed By: #### C XWND #### [facility] [address] [place] [address] Dr. Darrick Cao CBC AUTO DIFFon 04-22-2022 BASO # 0.1 103/ul Normal 0.0-0.1 [facility] Comment on above: Performed By: #### C BC #### [facility] [address] [place] [address] Dr. Darrick Cao Basophils/100 WBC (Bld) 0.7 % Normal 0.2-2.0 [facility] Comment on above: Performed By: #### C BC #### [facility] [address] [place] [address] Dr. Darrick Cao EO # 0.1 103/ul Normal 0.0-0.7 [facility] Comment on above: Performed By: #### C BC #### [facility] [address] [place] [address] Dr. Darrick Cao Eosinophils/100 WBC (Bld) 0.5 % Critically low 0.9-7.0 [facility] Comment on above: Performed By: #### C BC #### [facility] [address] [place] [address] Dr. Darrick Cao Erythrocyte distribution width (RBC) [Ratio] 15.8 % Critically high 11.0-15.0 [facility] Comment on above: Performed By: #### C BC #### [facility] [address] [place] [address] Dr. Darrick Cao Hematocrit (Bld) [Volume fraction] 39.8 % Normal 36.0-48.0 [facility] Comment on above: Performed By: #### C BC #### [facility] [address] [place] [address] Dr. Darrick Cao Hemoglobin (Bld) [Mass/Vol] 12.9 g/dL Normal 12.0-16.0 [facility] Comment on above: Performed By: #### C BC #### [facility] [address] [place] [address] Dr. Darrick Cao IG # 0.03 10e3/ul Normal 0.00-0.03 [facility] Comment on above: Performed By: #### C BC #### [facility] [address] [place] [address] Dr. Darrick Cao IG % 0.3 % Normal 0.0-0.5 [facility] Comment on above: Performed By: #### C BC #### [facility] [address] [place] [address] Dr. Darrick Cao LYMPH # 1.6 103/ul Normal 1.2-3.8 [facility] Comment on above: Performed By: #### C BC #### [facility] [address] [place] [address] Dr. Darrick Cao Lymphocytes/100 WBC (Bld) 16.0 % Critically low 20.5-60.0 [facility] Comment on above: Performed By: #### C BC #### [facility] [address] [place] [address] Dr. Darrick Cao MANUAL DIFF REQ NO Normal [facility] Comment on above: Performed By: #### C BC #### [facility] [address] [place] [address] Dr. Darrick Cao MCH (RBC) [Entitic mass] 28.2 pg Normal 26.7-34.0 [facility] Comment on above: Performed By: #### C BC #### [facility] [address] [place] [address] Dr. Darrick Cao MCHC (RBC) [Mass/Vol] 32.4 g/dL Normal 29.9-35.2 [facility] Comment on above: Performed By: #### C BC #### [facility] [address] [place] [address] Dr. Darrick Cao MCV (RBC) [Entitic vol] 86.9 fL Normal 81.0-99.0 [facility] Comment on above: Performed By: #### C BC #### [facility] [address] [place] [address] Dr. Darrick Cao MONO # 0.9 103/ul Critically high 0.3-0.8 [facility] Comment on above: Performed By: #### C BC #### [facility] [address] [place] [address] Dr. Darrick Cao Monocytes/100 WBC (Bld) 8.7 % Normal 1.7-12.0 [facility] Comment on above: Performed By: #### C BC #### [facility] [address] [place] [address] Dr. Darrick Cao NEUT # 7.5 103/ul Critically high 1.4-6.5 [facility] Comment on above: Performed By: #### C BC #### [facility] [address] [place] [address] Dr. Darrick Cao Neutrophils/100 WBC (Bld) 73.8 % Normal 43.0-75.0 [facility] Comment on above: Performed By: #### C BC #### [facility] [address] [place] [address] Dr. Darrick Cao Platelet mean volume (Bld) [Entitic vol] 9.3 fL Critically low 9.5-13.5 [facility] Comment on above: Performed By: #### C BC #### [facility] [address] [place] [address] Dr. Darrick Cao PLT 345 103/ul Normal 150-450 [facility] Comment on above: Performed By: #### C BC #### [facility] [address] [address] [address] Darrick Cao RBC 4.58 106/ul Normal 4.20-5.40 [facility] Comment on above: Performed By: #### C BC #### [facility] [address] [address] [address] Darrick Cao WBC 10.1 103/ul Normal 4.0-11.0 [facility] Comment on above: Performed By: #### C BC #### [facility] [address] [address] [address] Darrick Cao CRPon 04-22-2022 CRP 5.2 mg/dL Critically high <=1.0 [facility] Comment on above: Performed By: #### B MP, CRP ####[facility] [address] [address]Dr. Darrick Cao CULTURE BLOODon 04-22-2022 Microscopic examination of blood, culture Culture Observations: NO GROWTH AT 5 DAYS. Normal [facility] Comment on above: Performed By: #### B LDCX2 #### [facility] [address] [place] [address] Dr. Darrick Cao Microscopic examination of blood, culture Culture Observations: NO GROWTH AT 5 DAYS. Normal [facility] Comment on above: Performed By: #### B LDCX1 #### [facility] [address] [place] [address] Dr. Darrick Ca[facility]01 SARS-CoV-2 (COVID-19) RNA ALEKSANDR+probe Ql (Unsp spec) Not detected Normal NOT DETECTED [facility] Comment on above: Result Comment: When diagnostic [...] for this test is supported by the [place] of Health and Human Service's declaration that [...] used). Performed By: #### P OCGLUC #### [facility] [address] [place] [address] Dr. Darrick Cao LACTATE/LACTIC ACIDon 2021 Lactate [Moles/Vol] 1.3 mmol/L Normal 0.4-1.9 [facility] Comment on above: Performed By: #### P OCGLUC #### [facility] [address] [place] [address] Dr. Darrick Cao POINT OF CARE GLUCOSEon 04-01 Glucose [Mass/Vol] 96 mg/dL Normal 74-106 [facility] Comment on above: Performed By: #### P OCGLUC #### [facility] [address] [place] [address] Dr. Darrick Cao PROF CHEM 8 (BAS METB)on Anion gap [Moles/Vol] 12.3 mmol/L Normal [facility] Comment on above: Performed By: #### B MP, CRP ####[facility] [address] [address]Dr. Darrick Cao Calcium [Mass/Vol] 9.2 mg/dL Normal 8.5-10.1 [facility] Comment on above: Performed By: #### B MP, CRP ####[facility] [address] [address]Dr. Darrick Cao Chloride [Moles/Vol] 104 mmol/L Normal 98-107 [facility] Comment on above: Performed By: #### B MP, CRP ####[facility] [address] [address]Dr. Darrick Cao CO2 [Moles/Vol] 26.4 mmol/L Normal 21.0-32.0 [facility] Comment on above: Performed By: #### B MP, CRP ####[facility] [address] [address]Dr. Darrick Cao Creatinine [Mass/Vol] 1.19 mg/dL Critically high 0.55-1.02 [facility] Comment on above: Performed By: #### B MP, CRP ####[facility] [address] [address]Dr. Darrick Cao EGFR-AF ROMANIAN 56 mL/min/1.73m2 Critically low >=60 [facility] Comment on above: Performed By: #### B MP, CRP ####[facility] [address] [place], [place] [address]Dr. Darrick Cao EGFR-NON AF ROMANIAN 46 mL/min/1.73m2 Critically low >=60 [facility] Comment on above: Performed By: #### B MP, CRP ####[facility] [address] [place], [place] [address]Dr. Darrick Cao Glucose [Mass/Vol] 124 mg/dL Critically high 74-106 [facility] Comment on above: Performed By: #### B MP, CRP ####[facility] [address] [place], [place] [address]Dr. Darrick Cao Potassium [Moles/Vol] 4.7 mmol/L Normal 3.5-5.1 [facility] Comment on above: Performed By: #### B MP, CRP ####[facility] [address] [address]Dr. Darrick Cao Sodium [Moles/Vol] 138 mmol/L Normal 136-145 [facility] Comment on above: Performed By: #### B MP, CRP ####[facility] [address] [address]Dr. Darrick Cao Urea nitrogen [Mass/Vol] 21.0 mg/dL Critically high 7.0-18.0 [facility] Comment on above: Performed By: #### B MP, CRP ####[facility] [address] [place], [place] [address]Zs. Darrick Cao Urea nitrogen/Creatinine [Mass ratio] 17.6 mg/mg Normal [facility] Comment on above: Performed By: #### B MP, CRP ####[facility] [address] [place], [place] [address]TlMiguel Cao SED RATE WESTERGRENon 2021 SED RATE 64 mm/hr Critically high <=30 [facility] Comment on above: Performed By: #### P OCGLUC #### [facility] [address] [place], [place] [address] ANKLE LT WO [...] by: SHAWNEE KELLY Date: 2022-03-11 10:18 Normal [facility] SignNowID Quick Testingon 2020 Result Negative [employer] Other Operative Reporton Operative Report MR#: [id number] S [facility] Pt. Name: Nicol Knowles Room #: 0C Discharge Date: Birthdate: 1960 OPERATIVE REPORT DATE OF SURGERY: 12/16/2020 SURGEON: David Skie, M.D. PREOPERATIVE DIAGNOSIS: Trigger digits, right long finger and thumb. POSTOPERATIVE DIAGNOSIS: Trigger digits, right long finger and thumb. PROCEDURE: A1 leigha release, right long finger and thumb. LUMBER PULLER: Hay Mast M.D. ANESTHESIA: MAC. INDICATION FOR [...] Lr M.D. Date Trans: 12/16/2020 09:13 A/braxton [id number] cc: Waqas Pierce M.D. [address] [place] [address] Normal [facility] POC GLUCOSE LABon 12-16-2020 Glucose [Mass/Vol] 103 mg/dL High 70-100 [facility] Comment on above: Performed By: #### 8 [id number] #### [address] Vital Signs Date Time Vital Sign Value Performing Clinician Facility 01-10-2024 09:49-0400 Body mass index (BMI) [Ratio] 47.9 kg/m2 MD Waqas Pierce Work Phone: [facility] 01-10-2024 08:37-0400 Body height 170.18 cm MD Waqas Pierce Work Phone: [facility] 01-10-2024 08:37-0400 Body weight 117.02 kg MD Waqas Pierce Work Phone: [facility] 01-03-2024 10:52-0400 Body height 170.18 cm MD Waqas Pierce Work Phone: [facility] 01-03-2024 10:52-0400 Body mass index (BMI) [Ratio] 39.8 kg/m2 MD Waqas Pierce Work Phone: [facility] 01-03-2024 10:52-0400 Body weight 115.41 kg MD Waqas Pierce Work Phone: [facility] 01-03-2024 10:52-0400 Diastolic blood pressure 89 mm[Hg] MD Waqas Pierce Work Phone: [facility] 01-03-2024 10:52-0400 Heart rate 87 /min MD Waqas Pierce Work Phone: [facility] 01-03-2024 10:52-0400 Respiratory rate 18 /min MD Waqas Pierce Work Phone: [facility] 01-03-2024 10:52-0400 SaO2% (BldA) [Mass fraction] 99 % MD Waqas Pierce Work Phone: [facility] 01-03-2024 10:52-0400 Systolic blood pressure 128 mm[Hg] MD Waqas Pierce Work Phone: [facility] 12-10-2023 11:39-0400 Body mass index (BMI) [Ratio] 47.9 kg/m2 MD Waqas Pierce Work Phone: [facility] 12-10-2023 10:57-0400 Body height 170.18 cm MD Waqas Pierce Work Phone: [facility] 12-10-2023 10:57-0400 Body weight 117.02 kg MD Waqas Pierce Work Phone: [facility] 11-22-2023 10:59-0500 Body height 170.18 cm [facility] 11-22-2023 10:59-0500 Body mass index (BMI) [Ratio] 41.1 kg/m2 [facility] 11-22-2023 10:59-0500 Body weight 119.01 kg [facility] 11-22-2023 10:59-0500 Diastolic blood pressure 84 mm[Hg] [facility] 11-22-2023 10:59-0500 Heart rate 72 /min [facility] 11-22-2023 10:59-0500 Respiratory rate 18 /min [facility] 11-22-2023 10:59-0500 SaO2% (BldA) [Mass fraction] 99 % [facility] 11-22-2023 10:59-0500 Systolic blood pressure 132 mm[Hg] [facility] 11-21-2023 09:48-0500 Body height 170.18 cm [facility] 11-21-2023 09:48-0500 Body mass index (BMI) [Ratio] 40.7 kg/m2 [facility] 11-21-2023 09:48-0500 Body temperature 98.2 [degF] [facility] 11-21-2023 09:48-0500 Body weight 117.99 kg [facility] 11-21-2023 09:48-0500 Diastolic blood pressure 82 mm[Hg] [facility] 11-21-2023 09:48-0500 Heart rate 105 /min [facility] 11-21-2023 09:48-0500 Systolic blood pressure 131 mm[Hg] [facility] 11-19-2023 09:52-0500 Body height 170.18 cm [facility] 11-19-2023 09:52-0500 Body mass index (BMI) [Ratio] 40.8 kg/m2 [facility] 11-19-2023 09:52-0500 Body weight 118.38 kg [facility] 11-01-2023 11:15-0500 Body height 170.18 cm Waqas Pierce Other [facility] 11-01-2023 11:15-0500 Body mass index (BMI) [Ratio] 40.75 kg/m2 Waqas Pierce Other [employer] Other 11-01-2023 11:15-0500 Body weight 118.03 kg Waqas Pierce Other [employer] [facility] [employer] Other 11-01-2023 11:15-0500 Body weight 118.02 kg [facility] 11-01-2023 11:15-0500 Diastolic blood pressure 87 mm[Hg] Waqas Pierce Other [facility] 11-01-2023 11:15-0500 Systolic blood pressure 127 mm[Hg] Waqas Pierce Other [facility] 10-15-2023 10:00-0500 Body height 170.18 cm Grecia Fitt Other [facility] 10-15-2023 10:00-0500 Body mass index (BMI) [Ratio] 40.08 kg/m2 Grecia Fitt Other [facility] [employer] Other 10-15-2023 10:00-0500 Body weight 116.08 kg Grecia Fitt Other [facility] [employer] Other 10-15-2023 10:00-0500 Body weight 116.07 kg [facility] 09-18-2023 11:00-0500 Body height 170.18 cm Rolando Castellanos Other [facility] 09-18-2023 11:00-0500 Body mass index (BMI) [Ratio] 40.45 kg/m2 Rolando Castellanos Other [facility] Other 09-18-2023 11:00-0500 Body weight 117.16 kg Rolando Castellanos Other [facility] 09-18-2023 11:00-0500 Diastolic blood pressure 80 mm[Hg] Rolando Castellanos Other [facility] 09-18-2023 11:00-0500 Respiratory rate 18 /min Rolando Castellanos Other [facility] [employer] Other 09-18-2023 11:00-0500 SaO2% (BldA) [Mass fraction] 98 % Rolando Castellanos Other [employer] Other 09-18-2023 11:00-0500 Systolic blood pressure 115 mm[Hg] Rolando Castellanos Other [facility] 09-17-2023 10:45-0500 Body height 170.18 cm Grecia Fitt Other [facility] 09-17-2023 10:45-0500 Body mass index (BMI) [Ratio] 40.65 kg/m2 Grecia Fitt Other [employer] Other 09-17-2023 10:45-0500 Body weight 117.75 kg Grecia Fitt Other [facility] 09-03-2023 12:45-0500 Diastolic blood pressure 60 mm[Hg] MD Waqas Pierce Work Phone: [facility] 09-03-2023 12:45-0500 Heart rate 70 /min MD Waqas Pierce Work Phone: [facility] 09-03-2023 12:45-0500 Inhaled oxygen flow rate 1 L/min MD Waqas Pierce Work Phone: [facility] 09-03-2023 12:45-0500 Respiratory rate 16 /min MD Waqas Pierce Work Phone: [facility] 09-03-2023 12:45-0500 SaO2% (BldA) [Mass fraction] 97 % MD Waqas Pierce Work Phone: [facility] 09-03-2023 12:45-0500 Systolic blood pressure 132 mm[Hg] MD Waqas Pierce Work Phone: [facility] 09-03-2023 10:21-0500 Body temperature 98.4 [degF] MD Waqas Pierce Work Phone: [facility] 09-03-2023 07:14-0500 Body height 172.72 cm MD Waqas Pierce Work Phone: [facility] 09-03-2023 07:14-0500 Body mass index (BMI) [Ratio] 39.5 kg/m2 MD Waqas Pierce Work Phone: [facility] 09-03-2023 07:14-0500 Body weight 118 kg MD Waqas Pierce Work Phone: [facility] 08-21-2023 14:30-0500 Body height 170.18 cm Waqas Pierce Other [employer] Other 08-21-2023 14:30-0500 Body mass index (BMI) [Ratio] 39.46 kg/m2 Waqas Pierce Other [employer] Other 08-21-2023 14:30-0500 Body weight 114.31 kg Waqas Pierce Other [employer] Other 08-21-2023 14:30-0500 Diastolic blood pressure 84 mm[Hg] Waqas Pierce Other [employer] Other 08-21-2023 14:30-0500 Systolic blood pressure 138 mm[Hg] Waqas Pierce Other [employer] Other 08-13-2023 10:45-0500 Body height 170.18 cm Grecia [employer] Other [employer] Other 08-13-2023 10:45-0500 Body mass index (BMI) [Ratio] 41.22 kg/m2 Grecia Fitt Other [employer] Other 08-13-2023 10:45-0500 Body weight 119.39 kg Grecia Fitt Other [employer] Other 07-26-2023 11:30-0400 Body height 170.18 cm Rolando Jasmin Other [employer] Other 07-26-2023 11:30-0400 Body mass index (BMI) [Ratio] 41.86 kg/m2 Rolando Castellanos Other [employer] Other 07-26-2023 11:30-0400 Body weight 121.25 kg Rolando Castellanos Other [employer] Other 07-26-2023 11:30-0400 Diastolic blood pressure 77 mm[Hg] Rolando Castellanos Other [employer] Other 07-26-2023 11:30-0400 Respiratory rate 18 /min Rolando Castellanos Other [employer] Other 07-26-2023 11:30-0400 SaO2% (BldA) [Mass fraction] 98 % Rolando Castellanos Other [employer] Other 07-26-2023 11:30-0400 Systolic blood pressure 121 mm[Hg] Rolando Castellanos Other [employer] Other 07-23-2023 10:45-0400 Body height 170.18 cm Grecia Fitt Other [employer] Other 07-23-2023 10:45-0400 Body mass index (BMI) [Ratio] 41.78 kg/m2 Grecia Fitt Other [employer] Other 07-23-2023 10:45-0400 Body weight 121.02 kg Grecia Fitt Other [employer] Other 06-27-2023 15:15-0400 Body height 170.18 cm David Winnebago II Other [employer] Other 06-27-2023 15:15-0400 Body mass index (BMI) [Ratio] 41.97 kg/m2 David Winnebago II Other [employer] Other 06-27-2023 15:15-0400 Body weight 121.56 kg David Winnebago II Other [employer] Other 06-18-2023 11:30-0400 Body height 170.18 cm Grecia Fitt Other [employer] Other 06-18-2023 11:30-0400 Body mass index (BMI) [Ratio] 42.52 kg/m2 Grecia Fitt Other [employer] Other 06-18-2023 11:30-0400 Body weight 123.15 kg Grecia Fitt Other [employer] Other 06-14-2023 10:00-0400 Body height 170.18 cm Rolando Castellanos Other [employer] Other 06-14-2023 10:00-0400 Body mass index (BMI) [Ratio] 42.89 kg/m2 Rolando Jasmin Other [employer] Other 06-14-2023 10:00-0400 Body weight 124.24 kg Rolandotimothy Castellanos Other [employer] Other 06-14-2023 10:00-0400 Diastolic blood pressure 87 mm[Hg] Rolando Reyesdiff Other [employer] Other 06-14-2023 10:00-0400 Respiratory rate 18 /min Rolando Reyesdiff Other [employer] Other 06-14-2023 10:00-0400 SaO2% (BldA) [Mass fraction] 100 % Rolando Reyesdiff Other [employer] Other 06-14-2023 10:00-0400 Systolic blood pressure 124 mm[Hg] Rolando Reyesdiff Other [employer] Other 06-11-2023 12:45-0400 Body height 170.18 cm Waqas Pierce Other [employer] Other 06-11-2023 12:45-0400 Body mass index (BMI) [Ratio] 42.41 kg/m2 Waqas Pierce Other [employer] Other 06-11-2023 12:45-0400 Body weight 122.83 kg Waqas Pierce Other [employer] Other 06-11-2023 12:45-0400 Diastolic blood pressure 76 mm[Hg] Waqas Pierce Other [employer] Other 06-11-2023 12:45-0400 Respiratory rate 12 /min Waqas Pierce Other [employer] Other 06-11-2023 12:45-0400 Systolic blood pressure 124 mm[Hg] Waqas Pierce Other [employer] Other 05-14-2023 10:00-0400 Body height 170.18 cm Grecia Fitt Other [employer] Other 05-14-2023 10:00-0400 Body mass index (BMI) [Ratio] 43.05 kg/m2 Grecia Fitt Other [employer] Other 05-14-2023 10:00-0400 Body weight 124.69 kg Grecia Fitt Other [employer] Other 04-16-2023 10:00-0400 Body height 170.18 cm Grecia Fitt Other [employer] Other 04-16-2023 10:00-0400 Body mass index (BMI) [Ratio] 43.94 kg/m2 Grecia Fitt Other [employer] Other 04-16-2023 10:00-0400 Body weight 127.28 kg Grecia Fitt Other [employer] Other 01-11-2023 11:00-0400 Body height 170.18 cm Grecia Fitt Other [employer] Other 01-11-2023 11:00-0400 Body mass index (BMI) [Ratio] 47.37 kg/m2 Grecia Fitt Other [employer] Other 01-11-2023 11:00-0400 Body weight 137.21 kg Grecia Fitt Other [employer] Other 11-16-2022 11:45-0500 Body height 170.18 cm Rolando Castellanos Other [employer] Other 11-16-2022 11:45-0500 Body mass index (BMI) [Ratio] 47 kg/m2 Rolandotimothy Reyesdiff Other [employer] Other 11-16-2022 11:45-0500 Body weight 136.13 kg Rolando Jasmin Other [employer] Other 11-16-2022 11:45-0500 Diastolic blood pressure 85 mm[Hg] Rolando Castellanos Other [employer] Other 11-16-2022 11:45-0500 Respiratory rate 18 /min Rolandotimothy Castellanos Other [employer] Other 11-16-2022 11:45-0500 SaO2% (BldA) [Mass fraction] 97 % Rolando Reyesdiff Other [employer] Other 11-16-2022 11:45-0500 Systolic blood pressure 114 mm[Hg] Rolandotimothy Castellanos Other [employer] Other 11-14-2022 09:15-0500 Body height 170.18 cm Grecia Carrera Other [employer] Other 11-08-2022 14:57-0500 Blood Pressure Location Efrain CORTES [facility] 11-08-2022 14:57-0500 Diastolic blood pressure 74 mm[Hg] Efrain CORTES [facility] 11-08-2022 14:57-0500 Heart rate 80 /min Efrain CORTES [facility] 11-08-2022 14:57-0500 Respiratory rate 16 /min Efrain CORTES [facility] 11-08-2022 14:57-0500 Systolic blood pressure 118 mm[Hg] Efrain CORTES [facility] 10-23-2022 10:30-0500 Body height 170.18 cm Waqas Pierce Other [employer] Other 10-23-2022 10:30-0500 Body mass index (BMI) [Ratio] 46.04 kg/m2 Waqas Pierce Other [employer] Other 10-23-2022 10:30-0500 Body weight 133.36 kg Waqas Pierce Other [employer] Other 10-23-2022 10:30-0500 Diastolic blood pressure 88 mm[Hg] Waqas Pierce Other [employer] Other 10-23-2022 10:30-0500 Systolic blood pressure 148 mm[Hg] Waqas Pierce Other [employer] Other 10-13-2022 10:15-0500 Body height 170.18 cm Rachel Davidsonsadie Other [employer] Other 10-13-2022 10:15-0500 Body mass index (BMI) [Ratio] 45.89 kg/m2 Rachel Missler Other [employer] Other 10-13-2022 10:15-0500 Body weight 132.9 kg Rachel Missler Other [employer] Other 10-13-2022 10:15-0500 Diastolic blood pressure 89 mm[Hg] Rachel Missler Other [employer] Other 10-13-2022 10:15-0500 Respiratory rate 18 /min Rachel Vela Other [employer] Other 10-13-2022 10:15-0500 SaO2% (BldA) [Mass fraction] 96 % Rachel Vela Other [employer] Other 10-13-2022 10:15-0500 Systolic blood pressure 138 mm[Hg] Rachelher Davidsonler Other [employer] Other 09-06-2022 16:00-0500 Body height 170.18 cm David Rdzle II Other [employer] Other 09-06-2022 16:00-0500 Body mass index (BMI) [Ratio] 45.57 kg/m2 David Mcelroyisle II Other [employer] Other 09-06-2022 16:00-0500 Body weight 132 kg David Mcelroyisle II Other [employer] Other 07-25-2021 18:45-0400 Body height 170.18 cm Mallory Wilfrid Other [employer] Other 07-25-2021 18:45-0400 Body mass index (BMI) [Ratio] 42.91 kg/m2 Mallory Wilfrid Other [employer] Other 07-25-2021 18:45-0400 Body temperature 98.6 [degF] Mallory Yuen Other [employer] Other 07-25-2021 18:45-0400 Body weight 124.29 kg Mallory Yuen Other [employer] Other 07-25-2021 18:45-0400 Respiratory rate 18 /min Mallory Yuen Other [employer] Other 07-25-2021 18:45-0400 SaO2% (BldA) [Mass fraction] 96 % Mallory Yuen Other [employer] Other Encounters Encounter Date Encounter Type Care Provider Facility Start: 01-10-2024 End: 01-10-2024 ambulatory MD Waqas Pierce Work Phone: [facility] Work Phone: Start: 01-10-2024 End: 01-10-2024 Patient encounter procedure MD Waqas Pierce Work Phone: [facility] Work Phone: Start: 01-03-2024 End: 01-03-2024 ambulatory MD Waqas Pierce Work Phone: [facility] Work Phone: Start: 01-03-2024 End: 01-03-2024 Patient encounter procedure MD Waqas Pierce Work Phone: [facility] Work Phone: Start: 12-26-2023 End: 12-26-2023 ambulatory MD Waqas Pierce Work Phone: [facility] Work Phone: Start: 12-26-2023 End: 12-26-2023 Patient encounter procedure MD Waqas Pierce Work Phone: [facility] Work Phone: Start: 12-10-2023 End: 12-10-2023 Patient encounter procedure MD Waqas Pierce Work Phone: [facility] Work Phone: Start: 11-28-2023 End: 11-28-2023 Patient encounter procedure MD Waqas Pierce Work Phone: [facility] Work Phone: Start: 11-28-2023 End: 11-28-2023 ambulatory Waqas Pierce Facility:[facility] Start: 11-28-2023 End: 11-28-2023 Patient encounter procedure MD Waqas Pierce Work Phone: [facility] Start: 11-22-2023 End: 11-22-2023 ambulatory NON STAFF [facility] Work Phone: Start: 11-22-2023 End: 11-22-2023 Patient encounter procedure [facility] Work Phone: Start: 11-21-2023 End: 11-21-2023 ambulatory NON STAFF [facility] Work Phone: Start: 11-21-2023 End: 11-21-2023 Patient encounter procedure [facility] Work Phone: Start: 11-20-2023 Registered Recurring MD Waqas Pierce Work Phone: [facility] Start: 11-19-2023 End: 11-19-2023 ambulatory NON STAFF [facility] Work Phone: Start: 11-19-2023 End: 11-19-2023 Patient encounter procedure [facility] Work Phone: Start: 11-01-2023 End: 11-01-2023 ambulatory Waqas Pierce Other [employer] Other Start: 11-01-2023 Office outpatient vi sit 15 minutes Waqas Pierce [facility] Start: 11-01-2023 End: 11-01-2023 Patient encounter procedure [facility]- Start: 10-31-2023 End: 10-31-2023 ambulatory Waqas Pierce Other [employer] Other Start: 10-31-2023 Telephone encounter Waqas Pierce [facility] Start: 10-23-2023 Registered Recurring MD Waqas Pierce Work Phone: [facility] Start: 10-17-2023 Postop follow up vis it related to original px David Winnebago II [facility] Start: 10-17-2023 End: 10-17-2023 ambulatory NON STAFF [facility] Work Phone: Start: 10-17-2023 End: 10-17-2023 Patient encounter procedure [facility] Start: 10-15-2023 ([facility] RD FU) [facility] F/ U [employer] Service Grecia Carrera [facility] Start: 10-15-2023 End: 10-15-2023 ambulatory Grecia Carrera Other [employer] Other Start: 10-15-2023 Registered Recurring [facility] Work Phone: Start: 10-15-2023 End: 10-15-2023 Patient encounter procedure [facility] Work Phone: Start: 10-02-2023 End: 10-02-2023 ambulatory Rolando Castellanos Other [employer] Other Start: 10-02-2023 Telephone encounter Rolando Castellanos [facility] Start: 09-19-2023 End: 09-19-2023 ambulatory David Winnebago II Other [employer] Other Start: 09-19-2023 Postop follow up vis it related to original px Carrie Nairarney [facility] Start: 09-19-2023 Telephone encounter David Winnebago II [facility] Start: 09-19-2023 End: 09-19-2023 Patient encounter procedure [facility] Work Phone: Start: 09-18-2023 End: 09-18-2023 ambulatory Rolando Castellanos Other [employer] Other Start: 09-18-2023 Follow-up encounter Rolando Castellanos [facility] Start: 09-18-2023 End: 09-18-2023 Patient encounter procedure [facility] Work Phone: Start: 09-17-2023 ([facility] RD FU) [facility] F/ U [employer] Service Grecia Carrera [facility] Start: 09-17-2023 End: 09-17-2023 ambulatory Grecia Carrera Other [employer] Other Start: 09-17-2023 End: 09-17-2023 Patient encounter procedure [facility] Work Phone: Start: 09-10-2023 End: 09-10-2023 ambulatory David Mcfarland II Other [employer] Other Start: 09-10-2023 Telephone encounter David Mcfarland II [facility] Start: 09-03-2023 End: 09-03-2023 ambulatory NON STAFF Facility:[facility] Start: 09-03-2023 End: 09-03-2023 Admission to same day surgery center MD Waqas Pierce Work Phone: [facility] [place] Start: 09-03-2023 End: 09-03-2023 ambulatory MD Waqas Pierce Work Phone: [facility] Work Phone: Start: 08-31-2023 (Prolonged) Prolonge d Services David Mcfarland II [facility] Start: 08-31-2023 End: 09-01-2023 ambulatory David Mcfarland II [employer] Other Start: 08-31-2023 Registered Recurring MD Waqas Pierce Work Phone: [facility] [place] Start: 08-30-2023 End: 08-30-2023 ambulatory David Mcfarland II Other [employer] Other Start: 08-30-2023 Office outpatient vi sit 40 minutes David Mcfarland II [facility] Start: 08-28-2023 End: 08-28-2023 ambulatory NON STAFF Facility:[facility] Start: 08-28-2023 End: 08-28-2023 ambulatory MD Waqas Pierce Work Phone: [facility] Work Phone: Start: 08-28-2023 End: 08-28-2023 Patient encounter procedure MD Waqas Pierce Work Phone: [facility] Work Phone: Start: 08-28-2023 Registered Recurring [facility] Start: 08-21-2023 End: 08-21-2023 ambulatory Waqas Pierce Other [employer] Other Start: 08-21-2023 Encounter for other preprocedural examination Waqas Pierce [facility] Start: 08-21-2023 Office outpatient vi sit 25 minutes Waqas Pierce [facility] Start: 08-15-2023 End: 08-15-2023 ambulatory NON STAFF Facility:[facility] Start: 08-15-2023 End: 08-15-2023 ambulatory MD Waqas Pierce Work Phone: [facility] Work Phone: Start: 08-15-2023 End: 08-15-2023 Patient encounter procedure MD Waqas Pierce Work Phone: [facility] Start: 08-13-2023 Registered Recurring MD Waqas Pierce Work Phone: [facility] Work Phone: Start: 08-13-2023 ([facility] FU) [facility] F/ U [employer] Service Grecia Carrera [facility] Start: 08-13-2023 End: 08-13-2023 ambulatory Waqas Pierce [place] [employer] Other Start: 08-06-2023 End: 08-06-2023 ambulatory David Mcfarland II Other [employer] Other Start: 08-06-2023 Telephone encounter David Mcfarland II [facility] Start: 08-01-2023 End: 08-01-2023 ambulatory Waqas Pierce Other [employer] Other Start: 08-01-2023 Telephone encounter Waqas Pierce [facility] Start: 07-31-2023 (Televisit) Televisit Waqas Pierce [facility] Start: 07-31-2023 End: 07-31-2023 ambulatory Waqas Pierce Other [employer] Other Start: 07-26-2023 End: 07-26-2023 ambulatory Rolando Castellanos Other [employer] Other Start: 07-26-2023 Follow-up encounter Rolando Castellanos [facility] Start: 07-26-2023 Telephone encounter Davdi Bartolo [facility] Start: 07-23-2023 ([facility] RD FU) [facility] F/ U [employer] Service Grecia Carrera [facility] Start: 07-23-2023 End: 07-23-2023 ambulatory Grecia Carrera Other [employer] Other Start: 07-16-2023 End: 07-16-2023 ambulatory KIMBERLY AMADOR [facility] Start: 07-09-2023 End: 07-09-2023 ambulatory Rolando Castellanos Other [employer] Other Start: 07-09-2023 Telephone encounter Rolando [facility]hill[facility] Start: 06-27-2023 End: 06-27-2023 ambulatory David Mcfarland II Other [employer] Other Start: 06-27-2023 Office outpatient vi sit 25 minutes David Bartolo [facility] Start: 06-19-2023 End: 06-19-2023 ambulatory Waqas Pierce Other [employer] Other Start: 06-19-2023 Telephone encounter Waqas Pierce [facility] Start: 06-18-2023 ([facility] FU) [facility] F/ U [employer] Service Grecia Carrera [facility] Start: 06-18-2023 End: 06-18-2023 ambulatory Grecia Carrera Other [employer] Other Start: 06-14-2023 End: 06-14-2023 ambulatory Rolando Castellanos Other [employer] Other Start: 06-14-2023 Follow-up encounter Rolando dhillon [facility] Start: 06-11-2023 End: 06-11-2023 ambulatory Waqas Pierce Other [employer] Other Start: 06-11-2023 Encounter for genera l adult medical examination without abnormal findings Waqas Pierce [facility] Start: 06-11-2023 Periodic preventive med est patient 40-64yrs Waqas Pierce [facility] Start: 06-01-2023 End: 06-01-2023 ambulatory Waqas Pierce Other [employer] Other Start: 06-01-2023 Telephone encounter Waqas Pierce [facility] Start: 05-28-2023 End: 05-28-2023 ambulatory Waqas Pierce Other [employer] Other Start: 05-28-2023 Telephone encounter Waqas Pierce [facility] Start: 05-14-2023 ([facility] FU) [facility] F/ U [employer] Service Grecia Carlroberto [facility] Start: 05-14-2023 End: 05-14-2023 ambulatory Grecia Henryt Other [employer] Other Start: 04-16-2023 ([facility] FU) [facility] F/ U [employer] Service Grecia Carrera [facility] Start: 04-16-2023 End: 04-16-2023 ambulatory Grecia Henryt Other [employer] Other Start: 03-28-2023 ambulatory Marcin Vasquez acility:[facility] Start: 03-21-2023 End: 03-21-2023 ambulatory Waqas Pierce Other [employer] Other Start: 03-21-2023 Telephone encounter Waqas Pierce [facility] Start: 02-22-2023 ambulatory MER MAYBERRY . Facil ity:[facility] Start: 02-13-2023 End: 02-14-2023 ambulatory AMY KASPER Facility:[facility] Start: 01-31-2023 End: 01-31-2023 ambulatory Waqas Pierce Other [employer] Other Start: 01-31-2023 Telephone encounter Waqas Pierce [facility] [address] Start: 01-30-2023 End: 01-31-2023 ambulatory AMY KASPER Facility:[facility] Start: 01-19-2023 End: 01-20-[address] ROLANDO CASTELLANOS Facility:[facility] Start: 01-11-2023 ([facility] WMNI) N Init ial Provider Grecia Carrera [facility] Start: 01-11-2023 End: 01-11-2023 ambulatory Grecia Carrera Other [employer] Other Start: 01-09-2023 End: 01-10-2023 [facility] Start: 12-25-2022 End: 12-25-2022 ambulatory Junior Mcgowan Other [employer] Other Start: 12-25-2022 Telephone encounter Junior King [facility] Start: 12-22-2022 End: 12-23-2022 ambulatory AMY KASPER Facility:[facility] Start: 12-18-2022 End: 12-18-2022 ambulatory Junior Mcgowan Other [employer] Other Start: 12-18-2022 Telephone encounter Junior King [facility] Start: 12-15-2022 End: 12-15-2022 ambulatory Waqas Pierce Other [employer] Other Start: 12-15-2022 Telephone encounter Waqas Pierce [facility] Start: 12-12-2022 Telephone encounter Rolando [facility]hill[facility] Start: 12-12-2022 End: 12-13-[address] WAQAS PIERCE [place] [facility] Other Start: 12-06-2022 Telephone encounter Waqas Pierce [facility] Start: 12-06-2022 End: 12-07-2022 ambulatory Efrain CORTES [facility] Other Start: 12-01-2022 End: 12-02-[address] WAQAS PIERCE Facility:[facility] Start: 11-20-2022 End: 11-20-2022 ambulatory Rolando Castellanos Other [employer] Other Start: 11-20-2022 Telephone encounter Rolando dhillon [facility] Start: 11-17-2022 Telephone encounter Waqas Pierce [facility] Start: 11-17-2022 End: 11-18-[address] WAQAS PIERCE [facility] Other Start: 11-16-2022 End: 11-16-2022 ambulatory Rolando Castellanos Other [employer] Other Start: 11-16-2022 Follow-up encounter Rolando Castellanos [facility] Start: 11-14-2022 End: 11-14-2022 ambulatory Grecia Carrera Other [employer] Other Start: 11-14-2022 IBT FOR OBESITY GROU P 2-10 30M Grecia Carrera [facility] Start: 11-13-2022 End: 11-13-2022 ambulatory Waqas Pierce Other [employer] Other Start: 11-13-2022 Telephone encounter Waqas Pierce [facility] Start: 11-08-2022 End: 11-09-2022 ambulatory Efrain CORTES Facility:[facility] Start: 11-08-2022 End: 11-08-2022 Patient encounter procedure E[facility]rain CORTES [facility] Start: 11-06-2022 End: 11-07-[address] WAQAS PIERCE Facility:[facility] Start: 11-05-2022 Encounter for gynecological examination (general) (routine) without abnormal findings DR FRIEDA LOCKE . [facility] Start: 11-03-2022 End: 11-04-[address] WAQAS PIERCE Facility:[facility] Start: 10-30-2022 End: 10-31-[address] WAQAS PIERCE Facility:[facility] Start: 10-25-2022 End: 10-25-2022 ambulatory Waqas Pierce Other [employer] Other Start: 10-25-2022 Telephone encounter Waqas Pierce [facility] Start: 10-24-2022 End: 10-24-2022 ambulatory Rolando Castellanos Other [employer] Other Start: 10-24-2022 Telephone encounter Rolando dhillon [facility] Start: 10-23-2022 Office outpatient vi sit 15 minutes Waqas Pierce [facility] Start: 10-23-2022 Telephone encounter Waqas Pierce [facility] Start: 10-23-2022 End: 10-24-2022 ambulatory NON STAFF [facility] Work Phone: Start: 10-23-2022 End: 10-23-2022 Departed Referred [facility] [place] Work Phone: Start: 10-20-2022 End: 10-20-2022 ambulatory Waqas Pierce Other [facility] Other Start: 10-20-2022 Telephone encounter Waqas Pierce [facility] Start: 10-17-2022 End: 10-18-[address] WAQAS PIERCE Facility:[facility]1 Start: 10-13-2022 End: 10-13-2022 ambulatory Rachel Vela Other [employer] Other Start: 10-13-2022 Nutrition therapy Rachel Vela [facility] Start: 10-13-2022 Telephone encounter Rachel Vela [facility] Start: 10-13-2022 Registered [facility] Work Phone: Start: 10-10-2022 End: 10-11-[address] WAQAS PIERCE Facility:[facility] Start: 10-06-2022 End: 10-06-2022 ambulatory Waqas Pierce Other [facility] Other Start: 10-06-2022 Telephone encounter Waqas Pierce [facility] Start: 10-04-2022 (Procedure) Rayne Mcgowan [facility] Start: 10-04-2022 End: 10-04-2022 ambulatory Junior Mcgowan Other [employer] Other Start: 10-03-2022 End: 10-04-[address] WAQAS PIERCE [facility] Other Start: 10-03-2022 Telephone encounter Junior [facility] [place] Start: 09-27-2022 End: 09-27-2022 ambulatory Junior Mcgowan Other [employer] Other Start: 09-27-2022 Telephone encounter Junior King [facility] Start: 09-19-2022 End: 09-20-[address] WAQAS PIERCE Facility:[facility] Start: 09-11-2022 End: 09-12-[address] WAQAS PIERCE Facility:[facility] Start: 09-06-2022 End: 09-06-2022 Patient encounter procedure [facility] Start: 09-06-2022 End: 09-06-2022 ambulatory NON STAFF [facility] Work Phone: Start: 09-06-2022 [facility] visit new patient David davalos II [facility] Start: 09-06-2022 End: 09-06-2022 ambulatory KIMBERLY AMADOR [facility] Start: 08-28-2022 End: 08-29-[address] WAQAS PIERCE Facility:[facility] Start: 08-18-2022 Adult health examination Grecia Fitt Other [facility] Other Start: 08-18-2022 Gynecological examination normal Grecia Fitt Other [facility] Other Start: 08-18-2022 End: 08-19-[address] [...] Start: 04-25-2022 End: 04-25-2022 ambulatory ELICEO GIL . Facility:[facility] Start: 04-25-2022 Encounter for other preprocedural examination AMY KASPER [facility] Start: 04-24-[address] WAQAS PIERCE Facil ity:[facility]1 Start: 04-22-2022 End: 04-25-2022 Evaluation and management of inpatient SHAIKH Carlos BISWASKishor Facility:[facility]1 Start: 04-21-2022 End: 04-22-[address] [...] Pre-procedure evalua tion check Grecia Carrera Other [place] [employer] Other Start: 07-25-2021 Office outpatient vi sit 15 minutes Mallory Yuen [facility] Start: 06-23-2021 Office outpatient vi sit 25 minutes Junior Mcgowan [facility] [place] Start: 06-23-2021 Telephone encounter [facility] Start: 12-16-2020 End: 12-17-2020 ambulatory REFERRED SELF Facility:[facility] Procedures Date Procedure Procedure Detail Performing Clinician Start: 11-28-2023 Plain X-ray of right hip MD Waqas Pierce Work Phone: Start: 10-17-2023 Plain X-ray of right hip Start: 09-03-2023 Plain X-ray of right hip MD Waqas Pierce Work Phone: Start: 09-03-2023 Total replacement of right hip joint MD Waqas Pierce Work Phone: Start: 09-03-2023 Plain X-ray of right hip MD Waqas Pierce Work Phone: Start: 08-28-2023 Antibody screen Marcin Grace Comment on above: Order Comment: Date of Surgery: [id number] Result Comment: PERF ORMED BY: [facility] [address] [place] [address] PATHOLOGIST [employer] SUAD ARREAGA M.D. Start: 08-28-2023 Urine culture MD Waqas Pierce Work Phone: Start: 08-15-2023 Plain X-ray of right hip MD Waqas Pierce Work Phone: Start: 10-23-2022 Urine culture Start: 09-06-2022 Plain X-ray of right hip Start: 04-24-2022 Excision of Left Tarsal, Open Approach DR WAQAS PIERCE Start: 04-24-2022 Insertion of Tissue [facility] into Left Foot Subcutaneous Tissue and Fascia, [...] veins of left lower limb (disorder) Efrain RABAGOL Comment on above: procedure Start: 09-08-2020 Esophagogastroduodenoscopy Efrain RABAGOL Start: 12-04-2016 Laboratory test result abnormal Grecia Fit t Other Arthroplasty Efrain NILL Comment on above: left hip Bilateral bone spur of calcaneum (disorder) Efrain HIMAL Decompression of median nerve Efrain RABAGOL Comment on above: left wrist Fasciotomy of foot Efrain ARAGON 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 Raulbenny CORTES H/O: artificial joint Aftercare following joint replacement MD Waqas Pierce Work Phone: Inject trigger finger/thumb Efrain CORTES Laboratory test result abnormal Waqas Pierce Other Screening for malign ant neoplasm of breast Grecia Fitt Other Screening for osteoporosis D awn Fitt Other Tonsillectomy and adenoidectomy Efrain CORTES Plan of Treatment Date Care Activity Detail Author Start: 09-03-2023 Hospital admission [facility] Start: 09-03-2023 End: 09-03-2023 [facility] Start: 09-03-2023 Physical therapy procedure [facility] Start: 08-28-2023 [facility] Start: 08-28-2023 Bacteria identified in Urine by Culture [facility] Bacteria identified in Urine by Culture [facility] CT Chest WO and W contrast IV [facility] XR Chest 2 Views [facility] Immunizations Immunization Date Immunization Notes Care Provider Fa kaylaty 09-28-2023 COVID-19 (PFIZER) 12Y and older MD Waqas Pierce Work Phone: [facility] 09-28-2023 influenza, injectabl e, quadrivalent, preservative free MD Waqas Pierce Work Phone: [facility] 08-31-2022 COVID-19 (Pfizer) Bivalent Booster, Age 12Y+ [facility] 08-31-2022 influenza virus vaccine, unspecified formulation Efrain CORTES [facility] 08-31-2022 influenza, injectabl e, quadrivalent, preservative free MD Waqas Pierce Work Phone: [facility] 08-31-2022 SARS-CoV-2 (COVID-19 ) [id number] Efrain CORTES [facility] 02-24-2022 COVID-19 (Pfizer); Translations: [COVID-19 (Pfizer)] MD Waqas Pierce Work Phone: [facility] 02-24-2022 COVID-19 Comirnaty (Pfizer) Tri-Sucrose 12+ MD Waqas Pierce Work Phone: [facility] 02-24-2022 SARS-CoV-2 mRNA (ahitibicjph-dzyu-ohwwx se) vaccine Efrain CORTES [facility] 11-20-2021 influenza, injectabl e, quadrivalent, preservative free MD Waqas Pierce Work Phone: [facility] 08-19-2021 COVID-19 (Pfizer) [facility] 08-19-2021 SARS-CoV-2 (COVID-19 ) mRNA BNT-162b2 vax Efrain CORTES [facility] 01-19-2021 COVID-19 (Pfizer) [facility] 01-19-2021 SARS-CoV-2 (COVID-19 ) mRNA BNT-162b2 Interse[employer] CORTES [facility] 12-31-2020 COVID-19 (Pfizer) [facility] 12-31-2020 SARS-CoV-2 (COVID-19 ) mRNA BNT-162b2 [employer] Efrain CORTES [facility] 06-25-2020 influenza virus vaccine, split virus (incl. purified surface antigen) Grecia Carrera Other [employer] Other 06-25-2020 influenza virus vaccine, unspecified formulation [facility] 06-25-2020 influenza, injectabl e, quadrivalent, preservative free MD Waqas Pierce Work Phone: [facility] 06-25-2020 pneumococcal polysaccharide vaccine, 23 valent Grecia Carrera Other [facility] 07-30-2019 influenza, injectabl e, quadrivalent, contains preservative MD Waqas Pierce Work Phone: [facility] 07-12-2018 influenza, injectabl e, quadrivalent, preservative free MD Waqas Pierce Work Phone: [facility] 11-15-2016 influenza, injectabl e, quadrivalent, preservative free MD Waqas Pierce Work Phone: [facility] Payers Date Payer Category Payer Self-pay [id number] 1960 Unknown [id number] 2.16.840.1.082988.3.579.2.647 1960 Unknown [id number] 2.16.840.1.222225.3.579.2.727 1962 Unknown [id number] 2.16.840.1.022338.3.579.2.727 1962 Unknown [id number] 2.16.840.1.385640.3.579.2.593 1962 Unknown [id number] 2.16.840.1.828045.3.579.2.593 1962 Unknown [id number] 2.16.840.1.201083.3.579.2.593 1962 Unknown [id number] 2.16.840.1.580743.3.579.2.593 1962 Unknown [id number] 2.16.840.1.010180.3.579.2.593 1962 Unknown [id number] 2.16.840.1.652841.3.579.2.593 1962 Unknown [id number] 2.16.840.1.289352.3.579.2.593 1962 Unknown [id number] 2.16.840.1.918916.3.579.2.593 1962 Unknown [id number] 2.16.840.1.641689.3.579.2.593 1962 Unknown [id number] 2.16.840.1.064220.3.579.2.593 1962 Unknown [id number] 2.16.840.1.959112.3.579.2.593 1962 Unknown [id number] 2.16.840.1.177087.3.579.2.593 1962 Unknown [id number] 2.16.840.1.397875.3.579.2.593 1962 Unknown [id number] 2.16.840.1.720904.3.579.2.593 1962 Unknown [id number] 2.16.840.1.783587.3.579.2.593 1962 Unknown [id number] 2.16.840.1.907767.3.579.2.593 1962 Unknown [id number] 2.16.840.1.315018.3.579.2.593 1962 Unknown [id number] 2.16.840.1.993814.3.579.2.593 1962 Unknown [id number] 2.16.840.1.314106.3.579.2.593 1962 Unknown [id number] 2.16.840.1.375762.3.579.2.593 1962 Unknown [id number] 2.16.840.1.441757.3.579.2.593 1962 Unknown [id number] 2.16.840.1.368757.3.579.2.593 1962 Unknown [id number] 2.16.840.1.475569.3.579.2.593 1962 Unknown [id number] 2.16.840.1.894924.3.579.2.593 1962 Unknown [id number] 2.16.840.1.795823.3.579.2.593 1962 Unknown [id number] 2.16.840.1.939637.3.579.2.593 1962 Unknown [id number] 2.16.840.1.667115.3.579.2.593 1962 Unknown [id number] 2.16.840.1.367480.3.579.2.593 1962 Unknown [id number] 2.16.840.1.928725.3.579.2.593 1962 Unknown [id number] 2.16.840.1.340788.3.579.2.593 1962 Unknown [id number] 2.16.840.1.225861.3.579.2.593 1962 Unknown [id number] 2.16.840.1.621791.3.579.2.593 1962 Unknown [id number] 2.16.840.1.216837.3.579.2.593 1962 Unknown [id number] 2.16.840.1.062376.3.579.2.593 1962 Unknown [id number] 2.16.840.1.621532.3.579.2.593 1962 Unknown [id number] 2.16.840.1.085780.3.579.2.593 1962 Unknown [id number] 2.16.840.1.492199.3.579.2.593 1962 Unknown [id number] 2.16.840.1.722130.3.579.2.593 1962 Unknown [id number] 2.16.840.1.949903.3.579.2.593 1962 Unknown [id number] 2.16.840.1.223777.3.579.2.593 1962 Unknown [id number] 2.16.840.1.559555.3.579.2.593 1962 Unknown [id number] 2.16.840.1.260912.3.579.2.593 1962 Unknown [id number] 2.16.840.1.069638.3.579.2.593 1959 Unknown [id number] 2.16. 840.1.276654.19 1959 Unknown [id number] Unknown [id number] 2.16.840.1.361814.3.579.2.531 Unknown [id number] 2.16.840.1.870342.3.579.2.531 Unknown [id number] 2.16.840.1.721785.3.579.2.531 Unknown [id number] 2.16.840.1.821343.3.579.2.531 Worker's Compensation [id number] Worker's Compensation [place] [id number] Social History Date Type Detail Facility Unknown if ever smoked [facility] Other Sex Assigned At [facility] Start: 1960 Sex Assigned At Female F [facility] Start: 11-08-2022 End: 01-03-2024 Tobacco smoking status Ex-smoker (finding) [facility] Comment on above: smoked one year, souleymane t 30 years ago Tobacco smoking status Never [facility] Comment on above: smoked one year, souleymane t 30 years ago Medical Equipment Procedure Code Equipment Code Equipment Origin al Text Equipment Identifier Dates Arthroplasty, hip, total, anterior approach Acetabular shell [id number] FDA Start: 09-03-2023 Arthroplasty, hip, total, anterior approach Ceramic femoral head prosthesis ()[id number] FDA Start: 09-03-2023 Arthroplasty, hip, total, anterior approach Coated hip femur prosthesis, modular [id number] FDA Start: 09-03-2023 Arthroplasty, hip, total, anterior approach Non-constrained polyethylene acetabular liner [id number] FDA Start: 09-03-2023 Start: 02-13-2023 Goals Date Patient Goal Desired Activity /State Functional Status Date Assessment Result Facility 11-08-2022 Functional Status N/A [facility] Clinical Notes 06-23-2021 to 11-22-2023 Note Date & Type Note Facility 11-22-2023 Evaluation note Authored November 22, 2023 12:47pm Highest weight in program: 306.2. She is down 43.6 lbs. Start weight: 293.0 lbs. She is down 30.4lbs. today with a weight of 262.6 lbs she is up 4.3 lbs. since her last visit on 09/18/2023. Starting Date: 10/13/2022. Wegovy start date 01/17/2023. Wegovy start weight 306.2 pounds, she is down 43.6 lbs. Sample given. 1. Prediabetes most recent A1c of 5.8-uvgqn-yoqv treatment with long-term healthy lifestyle change, decreased simple sweets and refined starches, increased exercise and activity and long-term weight loss. She is intolerant metformin. Continue GLP-1 agonist. She needs close long-term follow-up for this condition to prevent diabetes. 2. Obesity-improved significantly with Mounjaro 2.5 mg samples and healthy lifestyle change. Her activity has increased some after her right hip replacement but she still slowed by low back pain. She was working with physical therapy. She should consider pool therapy/ water therapy. She needs to try to keep her trigger foods out of the house. 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 She understands the need for preplanning, following the plate method, having healthy foods around, keeping unhealthy foods out of her house and eating healthy Whole Foods. She does not like to cook or prep. She understands that shopping, chopping and preplanning so that she can eat healthy foods is essential to her recovery. 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 We could consider Wellbutrin in the future if she would have worsening depression. We cannot consider naltrexone as she is on tramadol. We could consider some Wellbutrin in the future if needed for depression. Her mood seems better with the success she is having with our program. She is now on thyroid replacement for her hypothyroidism. We would need to be careful with adding even low-dose phentermine with her history of palpitations. She denies recent palpitations. We could consider a trial of Topamax but it could worsen depression. 3. Mixed hyperlipidemia- improving with healthier eating and increased activity. We will continue to treat with decreasing the simple sweets, added sugars, refined starches, and bad/added fats, increasing activity and exercise and continued long-term weight loss. 4. Fatty liver- improving with significant weight loss of greater than 10%. Treat with healthy lifestyle changes and long-term weight loss. Her increased alk phos recently is more likely from her foot surgery recovery. Recent ALT and AST were normal. 5. Obstructive sleep apnea-improved with CPAP. Treat also with weight loss and healthy lifestyle change. 6. Depression-she has multiple stressors including son with bipolar disorder, her disability and multiple health issues. Improving with weight loss and hopefully hip surgery. Recommend continued counseling. She is not on antidepressant at this time. We could consider Wellbutrin which could also help with appetite. 7. Arthritis of her hip-treat with proper exercise and weight loss. She will need a hip replacement. Not significantly better yet despite her significant weight loss. 8. GERD-controlled with the PPI. 9. History of palpitations-she denies any recent significant issues and her heart rate is normal at this time. She is on metoprolol which can be helpful. 10. Increased TSH x2/ hypothyroidism. Continue long-term thyroid replacement by her PCP. 11. Hypertension-controlled on metoprolol. She will continue to treat with a low-salt diet, decreased processed and restaurant foods, healthy lifestyle changes and achieve long-term weight loss. Monitor. 12. Chronic low back pain was noted on her chart that she has spinal stenosis and lumbar disc disease. 13. Metabolic syndrome-treat with long-term healthy lifestyle changes, behavioral changes, healthy nutritional changes, increased activity and exercise and achieve long-term weight loss. Follow up with me in 8 weeks. New labs needed: Up-to-date. She will continue regular lab work and TSH with her PCP. [facility] Work Phone: 1(773) 870-293002-22-2024 Evaluation note* Author Rolando Castellanos [facility] Authored November 22, 2023 12:47pm Highest weight in program: 306.2. She is down 43.6 lbs. Start weight: 293.0 lbs. She is down 30.4lbs. today with a weight of 262.6 lbs she is up 4.3 lbs. since her last visit on 09/18/2023. Starting Date: 10/13/2022. Christian start date 01/17/2023. Christian start weight 306.2 pounds, she is down 43.6 lbs. Sample given. 1. Prediabetes most recent A1c of 5.2-edczp-paqu treatment with long-term healthy lifestyle change, decreased simple sweets and refined starches, increased exercise and activity and long-term weight loss. She is intolerant metformin. Continue GLP-1 agonist. She needs close long- term follow-up for this condition to prevent diabetes. 2. Obesity-improved significantly with Mounjaro 2.5 mg samples and healthy lifestyle change. Her activity has increased some after her right hip replacement but she still slowed by low back pain. She was working with physical therapy. She should consider pool therapy/ water therapy. She needs to try to keep her trigger foods out of the house. 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 She understands the need for preplanning, following the plate method, having healthy foods around, keeping unhealthy foods out of her house and eating healthy Whole Foods. She does not like to cook or prep. She understands that shopping, chopping and preplanning so that she can eat healthy foods is essential to her recovery. 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 We could consider Wellbutrin in the future if she would have worsening depression. We cannot consider naltrexone as she is on tramadol. We could consider some Wellbutrin in the future if needed for depression. Her mood seems better with the success she is having with our program. She is now on thyroid replacement for her hypothyroidism. We would need to be careful with adding even low-dose phentermine with her history of palpitations. She denies recent palpitations. We could consider a trial of Topamax but it could worsen depression. 3. Mixed hyperlipidemia- improving with healthier eating and increased activity. We will continue to treat with decreasing the simple sweets, added sugars, refined starches, and bad/added fats, increasing activity and exercise and continued long-term weight loss. 4. Fatty liver- improving with significant weight loss of greater than 10%. Treat with healthy lifestyle changes and long-term weight loss. Her increased alk phos recently is more likely from her foot surgery recovery. Recent ALT and AST were normal. 5. Obstructive sleep apnea-improved with CPAP. Treat also with weight loss and healthy lifestyle change. 6. Depression-she has multiple stressors including son with bipolar disorder, her disability and multiple health issues. Improving with weight loss and hopefully hip surgery. Recommend continued counseling. She is not on antidepressant at this time. We could consider Wellbutrin which could also help with appetite. 7. Arthritis of her hip-treat with proper exercise and weight loss. She will need a hip replacement. Not significantly better yet despite her significant weight loss. 8. GERD-controlled with the PPI. 9. History of palpitations-she denies any recent significant issues and her heart rate is normal at this time. She is on metoprolol which can be helpful. 10. Increased TSH x2/ hypothyroidism. Continue long-term thyroid replacement by her PCP. 11. Hypertension-controlled on metoprolol. She will continue to treat with a low-salt diet, decreased processed and restaurant foods, healthy lifestyle changes and achieve long-term weight loss. Monitor. 12. Chronic low back pain was noted on her chart that she has spinal stenosis and lumbar disc disease. 13. Metabolic syndrome-treat with long-term healthy lifestyle changes, behavioral changes, healthy nutritional changes, increased activity and exercise and achieve long-term weight loss. Follow up with me in 8 weeks. New labs needed: Up-to-date. She will continue regular lab work and TSH with her PCP. Author Estephania Mao [facility] Authored January 03, 2024 11:1 8am Highest weight in program: 3 06.2. She is down 51.5 lbs. Start weight: 293.0 lbs. She is down 38.3lbs. today with a weight of 254.7 lbs she is down 7.9 lbs. since her last visit on 11/22/2023. Starting Date: 10/13/2022. Wegovy start date 01/17/2023. Wegovy start weight 306.2 pounds, she is down 51.5 lbs. Sample given. 1. Prediabetes most recent A1c of 5.6-xcpms-wmvs treatment with long-term healthy lifestyle change, decreased simple sweets and refined starches, increased exercise and activity and long-term weight loss. She is intolerant metformin. Continue GLP-1 agonist. She needs close long- term follow-up for this condition to prevent diabetes. 2. Obesity-improved significantly with Mounjaro 2.5 mg samples and healthy lifestyle change. Her activity has increased some after her right hip replacement but she still slowed by low back pain. She was working with physical therapy. She should consider pool therapy/ water therapy. She needs to try to keep her trigger foods out of the house. 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 She understands the need for preplanning, following the plate method, having healthy foods around, keeping unhealthy foods out of her house and eating healthy Whole Foods. She does not like to cook or prep. She understands that shopping, chopping and preplanning so that she can eat healthy foods is essential to her recovery. 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 We could consider Wellbutrin in the future if she would have worsening depression. We cannot consider naltrexone as she is on tramadol. We could consider some Wellbutrin in the future if needed for depression. Her mood seems better with the success she is having with our program. She is now on thyroid replacement for her hypothyroidism. We would need to be careful with adding even low-dose phentermine with her history of palpitations. She denies recent palpitations. We could consider a trial of Topamax but it could worsen depression. 3. Mixed hyperlipidemia- improving with healthier eating and increased activity. We will continue to treat with decreasing the simple sweets, added sugars, refined starches, and bad/added fats, increasing activity and exercise and continued long-term weight loss. 4. Fatty liver- improving with significant weight loss of greater than 10%. Treat with healthy lifestyle changes and long-term weight loss. Her increased alk phos recently is more likely from her foot surgery recovery. Recent ALT and AST were normal. 5. Obstructive sleep apnea-improved with CPAP. Treat also with weight loss and healthy lifestyle change. 6. Depression-she has multiple stressors including son with bipolar disorder, her disability and multiple health issues. Improving with weight loss and hopefully hip surgery. Recommend continued counseling. She is not on antidepressant at this time. We could consider Wellbutrin which could also help with appetite. 7. Arthritis of her hip-treat with proper exercise and weight loss. She will need a hip replacement. Not significantly better yet despite her significant weight loss. 8. GERD-controlled with the PPI. 9. History of palpitations-she denies any recent significant issues and her heart rate is normal at this time. She is on metoprolol which can be helpful. 10. Increased TSH x2/ hypothyroidism. Continue long-term thyroid replacement by her PCP. 11. Hypertension-controlled on metoprolol. She will continue to treat with a low-salt diet, decreased processed and restaurant foods, healthy lifestyle changes and achieve long-term weight loss. Monitor. 12. Chronic low back pain was noted on her chart that she has spinal stenosis and lumbar disc disease. 13. Metabolic syndrome-treat with long-term healthy lifestyle changes, behavioral changes, healthy nutritional changes, increased activity and exercise and achieve long-term weight loss. Follow up with me in 8 weeks. New labs needed: Up-to-date. She will continue regular lab work and TSH with her PCP. [facility] Work Phone: 1(882) 164-875302-22-2024 Evaluation note* Author Rolando Castellanos [facility] Authored November 22, 2023 12:47pm Highest weight in program: 306.2. She is down 43.6 lbs. Start weight: 293.0 lbs. She is down 30.4lbs. today with a weight of 262.6 lbs she is up 4.3 lbs. since her last visit on 09/18/2023. Starting Date: 10/13/2022. Wegovy start date 01/17/2023. Wegovy start weight 306.2 pounds, she is down 43.6 lbs. Sample given. 1. Prediabetes most recent A1c of 5.7-rbxpp-tlzk treatment with long-term healthy lifestyle change, decreased simple sweets and refined starches, increased exercise and activity and long-term weight loss. She is intolerant metformin. Continue GLP-1 agonist. She needs close long- term follow-up for this condition to prevent diabetes. 2. Obesity-improved significantly with Mounjaro 2.5 mg samples and healthy lifestyle change. Her activity has increased some after her right hip replacement but she still slowed by low back pain. She was working with physical therapy. She should consider pool therapy/ water therapy. She needs to try to keep her trigger foods out of the house. 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 She understands the need for preplanning, following the plate method, having healthy foods around, keeping unhealthy foods out of her house and eating healthy Whole Foods. She does not like to cook or prep. She understands that shopping, chopping and preplanning so that she can eat healthy foods is essential to her recovery. 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 We could consider Wellbutrin in the future if she would have worsening depression. We cannot consider naltrexone as she is on tramadol. We could consider some Wellbutrin in the future if needed for depression. Her mood seems better with the success she is having with our program. She is now on thyroid replacement for her hypothyroidism. We would need to be careful with adding even low-dose phentermine with her history of palpitations. She denies recent palpitations. We could consider a trial of Topamax but it could worsen depression. 3. Mixed hyperlipidemia- improving with healthier eating and increased activity. We will continue to treat with decreasing the simple sweets, added sugars, refined starches, and bad/added fats, increasing activity and exercise and continued long-term weight loss. 4. Fatty liver- improving with significant weight loss of greater than 10%. Treat with healthy lifestyle changes and long-term weight loss. Her increased alk phos recently is more likely from her foot surgery recovery. Recent ALT and AST were normal. 5. Obstructive sleep apnea-improved with CPAP. Treat also with weight loss and healthy lifestyle change. 6. Depression-she has multiple stressors including son with bipolar disorder, her disability and multiple health issues. Improving with weight loss and hopefully hip surgery. Recommend continued counseling. She is not on antidepressant at this time. We could consider Wellbutrin which could also help with appetite. 7. Arthritis of her hip-treat with proper exercise and weight loss. She will need a hip replacement. Not significantly better yet despite her significant weight loss. 8. GERD-controlled with the PPI. 9. History of palpitations-she denies any recent significant issues and her heart rate is normal at this time. She is on metoprolol which can be helpful. 10. Increased TSH x2/ hypothyroidism. Continue long-term thyroid replacement by her PCP. 11. Hypertension-controlled on metoprolol. She will continue to treat with a low-salt diet, decreased processed and restaurant foods, healthy lifestyle changes and achieve long-term weight loss. Monitor. 12. Chronic low back pain was noted on her chart that she has spinal stenosis and lumbar disc disease. 13. Metabolic syndrome-treat with long-term healthy lifestyle changes, behavioral changes, healthy nutritional changes, increased activity and exercise and achieve long-term weight loss. Follow up with me in 8 weeks. New labs needed: Up-to-date. She will continue regular lab work and TSH with her PCP. Author Rolando Reyesdiff [facility] Authored January 03, 2024 11:3 9am Highest weight in program: 3 06.2. She is down 51.5 lbs. Start weight: 293.0 lbs. She is down 38.3lbs. today with a weight of 254.7 lbs she is down 7.9 lbs. since her last visit on 11/22/2023. Starting Date: 10/13/2022. Wegovy start date 01/17/2023. Wegovy start weight 306.2 pounds, she is down 51.5 lbs. Sample given. 1. Prediabetes most recent A1c of 5.2-xsnlz-hhlx treatment with long-term healthy lifestyle change, decreased simple sweets and refined starches, increased exercise and activity and long-term weight loss. She is intolerant metformin. Continue GLP-1 agonist. She needs close long- term follow-up for this condition to prevent diabetes. 2. Obesity-improved significantly with Mounjaro 2.5 mg samples and healthy lifestyle change. She may have to switch to Ozempic samples if Mounjaro not available. Her activity has increased after her right hip replacement but she still slowed by low back pain and bilateral foot issues. She would like to join the gym and start with a personal service workers. She should consider pool therapy/ water therapy. She needs to try to keep her trigger foods out of the house. She is to try to find healthier desserts and she tends to like to have 1 after each meal. Lately her cravings for sweets have been decreased. 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 She understands the need for preplanning, following the plate method, having healthy foods around, keeping unhealthy foods out of her house and eating healthy Whole Foods. She does not like to cook or prep. She understands that shopping, chopping and preplanning so that she can eat healthy foods is essential to her recovery. 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 We could consider Wellbutrin in the future if she would have worsening depression. We cannot consider naltrexone as she is on tramadol. We could consider some Wellbutrin in the future if needed for depression. Her mood seems better with the success she is having with our program. She is now on thyroid replacement for her hypothyroidism. We would need to be careful with adding even low-dose phentermine with her history of palpitations. She denies recent palpitations. We could consider a trial of Topamax but it could worsen depression. 3. Mixed hyperlipidemia- improved with healthier eating and increased activity. We will continue to treat with decreasing the simple sweets, added sugars, refined starches, and bad/added fats, increasing activity and exercise and continued long-term weight loss. 4. Fatty liver- improved with significant weight loss of greater than 10%. Treat with healthy lifestyle changes and long-term weight loss. Her increased alk phos recently is more likely from her foot surgery recovery. Recent ALT and AST were normal. 5. Obstructive sleep apnea-improved with CPAP. Treat also with weight loss and healthy lifestyle change. 6. Depression-she has multiple stressors including son with bipolar disorder, her disability and multiple health issues. Improving with weight loss and hopefully hip surgery. Recommend continued counseling. She is not on antidepressant at this time. We could consider Wellbutrin which could also help with appetite. 7. Arthritis of her hip-treat with proper exercise and weight loss. She will need a hip replacement. Not significantly better yet despite her significant weight loss. 8. GERD-controlled with the PPI. 9. History of palpitations-she denies any recent significant issues and her heart rate is normal at this time. She is on metoprolol which can be helpful. 10. Increased TSH x2/ hypothyroidism. Continue long-term thyroid replacement by her PCP. 11. Hypertension-controlled on metoprolol. She will continue to treat with a low-salt diet, decreased processed and restaurant foods, healthy lifestyle changes and achieve long-term weight loss. Monitor. 12. Chronic low back pain was noted on her chart that she has spinal stenosis and lumbar disc disease. 13. Metabolic syndrome-treat with long-term healthy lifestyle changes, behavioral changes, healthy nutritional changes, increased activity and exercise and achieve long-term weight loss. Follow up with me in 8 weeks. New labs needed: Up-to-date. She will continue regular lab work and TSH with her PCP. [facility] Work Phone: 1(930) 571-545002-01-2024 Evaluation note* Encounter Date Diagnosis Assessment Notes Treatment Notes Treatment Clinical Notes Nov, Hypothyroidism (ICD-10 - E03.9) Pt due for labs - will recheck Nov, Elevated fasting glucose (ICD-10 - R73.01) Continue healthy diet and exercise as able. [facility] Other 01-17-2024 Evaluation note* Encounter Date Diagnosis Assessment Notes Treatment Notes Treatment Clinical Notes Oct, Aftercare following joint replacement surgery (ICD-10 - Z47.1) Oct, Presence of right artificial hip joint (ICD-10 - Z96.641) Oct, Other [facility] at [facility] on 09/03/2023 Doing well Patient may continue increasing activities as tolerated. Continue taking aiym-dix-tzmzpac anti-inflammatorie s as needed for assistance with swelling and pain associated with the operative extremity. Follow-up in 6 weeks for repeat examination and repeat x-rays. [facility] Other 01-15-2024 Evaluation note* Encounter Date Diagnosis Assessment Notes Treatment Notes Treatment Clinical Notes Oct, Obesity (ICD-10 - E66.9) Oct, BMI 40.0-44.9, adult (ICD-10 - Z68.41) Oct, Other Summary of Visi t: (A) Discussed including more vegetables (B) Discussed plant proteins (C) Provided recipes [facility] Other 01-02-2024 Evaluation note* Encounter Date Diagnosis Assessment Notes Treatment Notes Treatment Clinical Notes Oct, Hypothyroidism (ICD-10 - E03.9) [facility] Other 12-20-2023 Evaluation note* Encounter Date Diagnosis [...] right artificial hip joint (ICD-10 - Z96.641) [facility] Other 12-19-2023 Evaluation note* Encounter Date Diagnosis [...] Aug, Metabolic syndrome X (ICD-10 - E88.81) [facility] Other 12-19-2023 Evaluation note* Author Rolando Castellanos [facility] Authored November 22, 2023 11:47am Highest weight in program: 306.2. She is down 43.6 lbs. Start weight: 293.0 lbs. She is down 30.4lbs. today with a weight of 262.6 lbs she is up 4.3 lbs. since her last visit on 09/18/2023. Starting Date: 10/13/2022. Wegovy start date 01/17/2023. Wegovy start weight 306.2 pounds, she is down 43.6 lbs. Sample given. 1. Prediabetes most recent A1c of 5.0-icxhb-yzdu treatment with long-term healthy lifestyle change, decreased simple sweets and refined starches, increased exercise and activity and long-term weight loss. She is intolerant metformin. Continue GLP-1 agonist. She needs close long- term follow-up for this condition to prevent diabetes. 2. Obesity-improved significantly with Mounjaro 2.5 mg samples and healthy lifestyle change. Her activity has increased some after her right hip replacement but she still slowed by low back pain. She was working with physical therapy. She should consider pool therapy/ water therapy. She needs to try to keep her trigger foods out of the house. 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 She understands the need for preplanning, following the plate method, having healthy foods around, keeping unhealthy foods out of her house and eating healthy Whole Foods. She does not like to cook or prep. She understands that shopping, chopping and preplanning so that she can eat healthy foods is essential to her recovery. 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 We could consider Wellbutrin in the future if she would have worsening depression. We cannot consider naltrexone as she is on tramadol. We could consider some Wellbutrin in the future if needed for depression. Her mood seems better with the success she is having with our program. She is now on thyroid replacement for her hypothyroidism. We would need to be careful with adding even low-dose phentermine with her history of palpitations. She denies recent palpitations. We could consider a trial of Topamax but it could worsen depression. 3. Mixed hyperlipidemia- improving with healthier eating and increased activity. We will continue to treat with decreasing the simple sweets, added sugars, refined starches, and bad/added fats, increasing activity and exercise and continued long-term weight loss. 4. Fatty liver- improving with significant weight loss of greater than 10%. Treat with healthy lifestyle changes and long-term weight loss. Her increased alk phos recently is more likely from her foot surgery recovery. Recent ALT and AST were normal. 5. Obstructive sleep apnea-improved with CPAP. Treat also with weight loss and healthy lifestyle change. 6. Depression-she has multiple stressors including son with bipolar disorder, her disability and multiple health issues. Improving with weight loss and hopefully hip surgery. Recommend continued counseling. She is not on antidepressant at this time. We could consider Wellbutrin which could also help with appetite. 7. Arthritis of her hip-treat with proper exercise and weight loss. She will need a hip replacement. Not significantly better yet despite her significant weight loss. 8. GERD-controlled with the PPI. 9. History of palpitations-she denies any recent significant issues and her heart rate is normal at this time. She is on metoprolol which can be helpful. 10. Increased TSH x2/ hypothyroidism. Continue long-term thyroid replacement by her PCP. 11. Hypertension-controlled on metoprolol. She will continue to treat with a low-salt diet, decreased processed and restaurant foods, healthy lifestyle changes and achieve long-term weight loss. Monitor. 12. Chronic low back pain was noted on her chart that she has spinal stenosis and lumbar disc disease. 13. Metabolic syndrome-treat with long-term healthy lifestyle changes, behavioral changes, healthy nutritional changes, increased activity and exercise and achieve long-term weight loss. Follow up with me in 8 weeks. New labs needed: Up-to-date. She will continue regular lab work and TSH with her PCP. [facility] Work Phone: 1(164) 172-376712-18-2023 Evaluation note* Encounter Date Diagnosis Assessment Notes Treatment Notes Treatment Clinical Notes Aug, Obesity (ICD-10 - E66.9) Aug, BMI 40.0-44.9, adult (ICD-10 - Z68.41) Aug, Other Summary of Visi t: (A) Discussed including more vegetables (B) Answered general nutrition-related questions (C) DIscussed options for including more water [facility] Other 12-01-2023 Evaluation note* Encounter Date Diagnosis [...] could proceed with surgery safely. The manager environmental health and safety was vital for surgery timing and scheduling [...] plans. Prolonged services time spent: 31 minutes [facility] Other 11-30-2023 Evaluation note* Encounter Date Diagnosis [...] therapy arrives. Joints Meeting Checklist - Pharmacy: [facility] to bed - Approach/Technique: anterior, [facility] bed - Implants: Avenir Complete/G7; - Anesthesia: general vs spinal - Blocks: Fascia iliaca - Preop Antibiotics: Ancef and Vanco - TXA: yes-systemic - Positioning/OR Bed: supine on [facility] bed - Intraop X-ray: yes - Alejandra: [...] above surgery. O[facility] report generated and reviewed. [facility] Other 11-21-2023 Evaluation note* Encounter Date Diagnosis [...] symptoms. Any developing patterns. Stay well hydrated. [facility] Other 11-13-2023 Evaluation note* Encounter Date Diagnosis Assessment Notes Treatment Notes Treatment Clinical Notes Aug, Obesity (ICD-10 - E66.9) Aug, BMI 40.0-44.9, adult (ICD-10 - Z68.41) Aug, Other Summary of Visi t: (A) Continue current regimen (B) Much emotional support provided today (C) Encouraged continued follow up with counselor [facility] Other 10-31-2023 Evaluation note* Encounter Date Diagnosis Assessment Notes Treatment Notes Treatment Clinical Notes Jul, Acute laryngitis (ICD-10 - J04.0) Patient denies bacterial infection symptoms such as fever facial pressure or chills. Patient has not taken a COVID test. Discussed gnvv-kzw-pclrtjy medications to use along with steroid pills that can improve her discomfort and laryngitis going forward. Advised that the steroids could elevate her blood sugar and to be mindful of that accordingly. [facility] Other 10-26-2023 Evaluation note* Encounter Date Diagnosis [...] Jul, Metabolic syndrome X (ICD-10 - E88.81) [facility] Other 10-26-2023 Evaluation note* Encounter Date Diagnosis Assessment Notes Treatment Notes Treatment Clinical Notes Jul, Other jail (current) drug therapy (ICD-10 - Z79.899) Jul, Other osteoporosis without current pathological fracture (ICD-10 - M81.8) Jul, Osteoarthritis of right hip (ICD-10 - M16.11) [facility] Other 10-23-2023 Evaluation note* Encounter Date Diagnosis Assessment Notes Treatment Notes Treatment Clinical Notes Jul, Obesity (ICD-10 - E66.9) Jul, BMI 40.0-44.9, adult (ICD-10 - Z68.41) Jul, Other Summary of Visi t: (A) Continue current regimen (B) Discussed ways to include more water (C) Discussed ways to include more vegetables [facility] Other 10-16-2023 NoteShe admits intermittent orthostasis when she is bending over working in the yard and upon standing she gets lightheaded and dizzy. Denies syncope and admits that she is chronically dehydrated and does not drink enough. Therefore recommended at least 2 L of water per day, can intermittently have electrolyte replacement drinks like Gatorade or Powerade or Pedialyte she voiced understandingUnRiverview Health Institute10-16-2023 NoteShe is working on weight loss with her PCP and overhauler helper.[facility] 07-16-2023 NoteStable with metoprolol 25 mg dailyUnRiverview Health Institute10-16-2023 NoteContinue atorvastatin 20 mg Liver function normal, cholesterol and LDL levels well controlled in light she does not have CAD.[facility]10-16-2023 NoteUTP CARDIOLOGY PROGRESS NOTE HPI: Nicol [...] TABLET BY MOUTH TWICE DAILY NEEDED HYDROcodone-acetaminophen (Monette) 5-325 mg tablet hydrocodone 5 mg-acetaminophen 325 [...] on weight loss with her PCP and overhauler helper. Orthostasis She admits intermittent orthostasis when she is bending over working in the yard and upon standing she gets lightheaded an (more content not included)... [facility]10-16-2023 NotePatient here c/o dizziness only with [...] weakness. All other systems reviewed and are negative.[facility] 06-27-2023 Evaluation note* Encounter Date Diagnosis [...] the patient works on weight loss management. [facility] Other 09-18-2023 Evaluation note* Encounter Date Diagnosis [...] meals available that fit the plate method [facility] Other 09-14-2023 Evaluation note* Encounter Date Diagnosis [...] Jun, Metabolic syndrome X (ICD-10 - E88.81) [facility] Other 09-11-2023 Evaluation note* Encounter Date Diagnosis [...] E55.9) discussed supplementation. will check D level. [facility] Other 08-28-2023 Evaluation note* Encounter Date Diagnosis Assessment Notes Treatment Notes Treatment Clinical Notes May, Hypothyroidism (ICD-10 - E03.9) [facility] Other 08-14-2023 Evaluation note* Encounter Date Diagnosis Assessment Notes Treatment Notes Treatment Clinical Notes May, Obesity (ICD-10 - E66.9) May, BMI 40.0-44.9, adult (ICD-10 - Z68.41) May, Other Summary of Visi t: (A) Discussed cooking various foods (B) Find control in indulgences (C) Reviewed the plate method [facility] Other 07-17-2023 Evaluation note* Encounter Date Diagnosis Assessment Notes Treatment Notes Treatment Clinical Notes Mar, Obesity (ICD-10 - E66.9) Mar, BMI 40.0-44.9, adult (ICD-10 - Z68.41) Mar, Other Summary of Visi t: (A) Discussed cooking various foods (B) Find control in indulgences (C) emphasize self-care [facility] Other 05-17-2023 NotePROCEDURE: XR FOOT LT MIN [...] Electronically authenticated by: ARIELA SCHWAB Date: 2023-02-14 06:48[facility]04-13-2023 Evaluation note* Encounter Date Diagnosis Assessment Notes [...] 2. Increase veggies, follow the plate method [facility] Other 03-14-2023 Evaluation note* Encounter Date Diagnosis Assessment Notes Treatment Notes Treatment Clinical Notes Nov, Abnormal laboratory test result (ICD-10 - R89.9) [facility] Other 03-08-2023 NoteOPERATIVE NOTE OPERATION DATE: 12/06/2022 [...] in 10 years. CC: Waqas Pierce M.D.[facility]Engtzadu[facility] Evaluation note* Encounter Date Diagnosis Assessment Notes Treatment Notes Treatment Clinical Notes Nov, Prediabetes (ICD-10 - R73.09) Nov, Abnormal thyroid blood test (ICD-10 - R79.89) Nov, Fatty liver (ICD-10 - K76.0) Nov, HERREAR (obstructive sleep apnea) (ICD-10 - G47.33) Nov, Depression (ICD-10 - F32.9) Nov, Mixed hyperlipidemia (ICD-10 - E78.2) Nov, Low back derangement syndrome (ICD-10 - M53.86) Nov, Palpitations (ICD-10 - R00.2) Nov, GERD (gastroesophageal reflux disease) (ICD-10 - K21.9) Nov, Metabolic syndrome X (ICD-10 - E88.81) Nov, Hip arthritis (ICD-1 0 - M16.10) Nov, Hypertension (ICD-10 - I10) [facility] Other 02-14-2023 Evaluation note* Encounter Date Diagnosis [...] patient set personal goal using given handout. [facility] Other 02-08-2023 NoteChief Complaint consultation for colonoscopy [...] Years., 11/08/2022 Family History (more content not included)...[facility] HospitalComment on above:Result Comment: Electronically Signed By: SOPHIA PINEDA, Efrain Layne\Date and Time Signed: 11/08/22 15:29 [id number] Evaluation note* Encounter Date Diagnosis Assessment Notes [...] - G47.33) presently compliant with machine, etc [facility] Other 01-13-2023 Evaluation note* Encounter Date Diagnosis [...] Patient is interested in meeting with our deicer finisher, telephone encounter started to connect with her [...] the week. Encouraged to take advantage of deicer finisher available at [facility] that can help work around limitations. She is open to meeting with our deicer finisher for guidance on exercises she can complete with her severe limitations from her foot, hip and back. Telephone encounter started. Oct, Plantar fasciitis (ICD-10 - M72.2) Oct, Arthritis of hip (ICD-10 - M16.10) Oct, Impaired fasting glucose (ICD-10 - R73.01) [facility] Other 12-07-2022 Evaluation note* Encounter Date Diagnosis [...] while she works on her weight loss. [facility] Other 12-07-2022 NoteUTP CARDIOLOGY PROGRESS NOTE HPI: [...] 1 TABLET BY MOUTH TWICE DAILY HYDROcodone-acetaminophen (Monette) 5-325 mg tablet hydrocodone 5 mg-acetaminophen 325 [...] return to cardiology as needed. This is reasonable.[facility]12-07-2022 NoteContinue lipitor [facility]12-07-[address] [facility]12-07-2022 NoteConR[facility]11-18-2022 NotePROCEDURE: XR HIP RT 2 3V [...] Electronically authenticated by: SHAWNEE KELLY Date: 2022-08-18 15:54[facility]11-18-2022 NotePROCEDURE: XR FOOT LT MIN 3 VIEWS [...] Electronically authenticated by: SHAWNEE KELLY Date: 2022-08-18 15:42[facility]09-16-2022 NotePROCEDURE: XR FOOT LT MIN 3 VIEWS, [...] Electronically authenticated by: SHAWNEE KELLY Date: 2022-06-16 16:24[facility]09-16-2022 NotePROCEDURE: XR FOOT LT MIN 3 VIEWS, [...] Electronically authenticated by: SHAWNEE KELLY Date: 2022-06-16 16:24[facility]08-11-2022 NotePROCEDURE: XR FOOT LT MIN 3 VIEWS COMPARISON: 04/24/2022 HISTORY: Pain in left foot FINDINGS: BONES:Stable postsurgical changes with subtalar fusion, medial midfoot hindfoot fusion and spacer at the first tarsometatarsal joint. No mechanical failure. Severe degenerative changes. SOFT TISSUES:Extensive soft tissue swelling.Dorsal woundvac EFFUSION:None visible. OTHER: Negative. IMPRESSION: Stable degenerative and post surgical changes Electronically authenticated by: SHAWNEE KELLY Date: 2022-05-11 17:16[facility]07-25-2022 NotePROCEDURE: XR FOOT LT MIN 3 VIEWS [...] Electronically authenticated by: ARIELA SCHWAB Date: 2022-04-24 14:11[facility]07-25-2022 NotePROCEDURE: XR FOOT LT 2V HISTORY: Pain [...] authenticated by: ARIELA SCHWAB Date: 2022-04-24 11:54[id number] NotePROCEDURE: XR FOOT LT MIN 3 VIEWS [...] Electronically authenticated by: ARIELA SCHWAB Date: 2022-04-22 20:52[facility]07-15-2022 NotePROCEDURE: XR FOOT LT MIN 3 VIEWS [...] Electronically authenticated by: SHAWNEE KELLY Date: 2022-04-14 17:03[facility]10-25-2021 Evaluation note* Encounter Date Diagnosis Assessment Notes [...] Patient care instructions given in writting by [facility] document. [place] [facility] Other 09-23-2021 Evaluation note* Encounter Date Diagnosis [...] note writ ten by Safia Calderon CMA, Hammer Smith. Edited and approved by Dr. Junior Mcgowan MD. [facility] Other Evaluation + Plan note No data available for this section General Surgery Mary Evaluation noteNo InformationNort [facility] Other Evaluation noteNo assessment information available [facility] Work Phone: Hismoc[facility] general Narrative - Reported* Type Description Date Medical History DDD (degenerative disc disease), lumbar Surgical History hip replacement Surgical History tonsillectomy Surgical History carpal tunnel release bilateral Hospitalization History see above [facility] Other [facility] general Narrative - Reported* Type Description Date Medical History DDD (degenerative disc disease), lumbar Medical History spinal stenosis Surgical History hip replacement Surgical History tonsillectomy Surgical History carpal tunnel release bilateral Surgical History vein ablasion Hospitalization History see above [facility] Other [facility] general Narrative - Reported* Type Description Date Medical History DDD (degenerative disc disease), lumbar Medical History spinal stenosis Surgical History hip replacement Surgical History tonsillectomy Surgical History carpal tunnel release bilateral Surgical History vein ablasion Surgical History skin graft left foot Hospitalization History see above [facility] Other [facility] general Narrative - Reported* Type Description Date [...] x3 202 2 Hospitalization History see above [facility] Other History general Narrative - Reported* Type [...] HIp replacement 09/03/23 Hospitalization History see above [facility] Other Hospital Discharge instructions No data available for this section General Surgery [facility] Discharge instructions Additional Instructions Joint Replacement Discharge Instructions Your safety during your recovery process is important to us. Please seek immediate emergency care if you have sudden chest pain or shortness of breath. Additionally, please call our office at [phone] should any of the following occur: wound [...] time or it could last forever. JANELL sarkar (stockinette): Wear them for 4 weeks on [...] to walk without your walker and your disabilities caregiver until the therapist checks you the following [...] and/or laxatives as directed. You may take tmvn-qtc-vgvcnte Benadryl if itching occurs without a rash or hives. Icing and elevation will help relieve pain as well, do not underestimate the power of ice and elevation. We do recommend that you stop taking narcotic pain medications by 4-6 weeks after surgery and if necessary, continue to use anti-inflammatory medications such as Mobic (meloxicam), Celebrex (celecoxib), or an yysi-kwj-mtdqqee medication (Aleve, Motrin, Ibuprofen, etc). Driving an [...] feel free to call our office at [phone]. You are a priority of ours and we will not be upset with you if you call. We would much rather you call to confirm aspects of your recovery process as opposed to possibly hindering your recovery with inappropriate care. We are committed to providing you with the best care possible. David Mcfarland II, MD Updated 12/15/2022[facility] Work Phone: Progress note No data available for this section General Surgery [place] Reason for referral (narrative)* Reason Appt: Diagnosis 1 Depression (F32.9) Referral Organization [facility] Referring Provider First Name Rolando Referring Provider Last Name Jasmin Referring Provider Specialty Internal Me dicine Referred Organization [facility] Natalia Referred Address [address] [place],[address] Referred Provider Specialty Miscellaneou s Referral Priority Routine General Notes Anna Jose 2022 01:07:39 PM >Please contact patient to schedule. [facility] Other Summary Purpose Family History Relationship Condition Age at Onset Recorded Date/T reyna father Diabetes mellitus Unknown Congestive heart failure Unknown Not Specified Primary malignant ne oplasm of bone marrow Unknown Osteoarthritis Unknown Macular degeneration Unknown Relationship Condition Age at Onset Recorded Date/T reyna father Diabetes mellitus Unknown Congestive heart failure Unknown Not Specified Primary malignant ne oplasm of bone marrow Unknown Osteoarthritis Unknown Macular degeneration Unknown daughter Hypertension Unknown father Heart disease Unknown Unknown Diabetes mellitus Unknown Not Specified Malignant neoplasm Unknown natural son Family history of mental disorder Unknown Hypertension Unknown Relationship Condition Age at Onset Recorded Date/T reyna father Diabetes mellitus Unknown Congestive heart failure Unknown Not Specified Primary malignant ne oplasm of bone marrow Unknown Osteoarthritis Unknown Macular degeneration Unknown daughter Hypertension Unknown father Heart disease Unknown Unknown Diabetes mellitus Unknown Not Specified Malignant neoplasm Unknown natural son Family history of mental disorder Unknown Hypertension Unknown brother Myocardial infarction Unknown Advance Directives Advance Directive Response Recorded Date/ Time Advance Directives No July 17, 2018 1:24pm Advance Directive Response Recorded Date/ Time Advance Directives No July 17, 2018 2:24pm Chief Complaint and Reason for Visit Chief Complaint M25.551 Obesity Chief Complaint Obesity Chief Complaint Obesity M16.11 Hip pain Chief Complaint Obesity M16.11 Hip pain Right Total Hip Pre Op Hip pain Chief Complaint M16.11 Hip pain Right Total Hip Pre Op Hip pain Obesity Chief Complaint BH Hip pain Right Total Hip Pre Op Hip pain Rd Wm F/U 2 Month Follow Up [address] Wm F/U Obesity z47.[address] WM f/u Chief Complaint BH Hip pain Right Total Hip Pre Op Hip pain Rd Wm F/U 2 Month Follow Up [address] Wm F/U Obesity z47.[address] WM f/u Sinus infection Chief Complaint BH Hip pain Right Total Hip Pre Op Hip pain Rd Wm F/U 2 Month Follow Up [address] Wm F/U Obesity z47.[address] WM f/u Sinus infection WMN F/UP Reason for Visit BMI 40.0-44.9, adult Fatty liver Hyperlipidemia Hypertension Pre-diabetes Chief Complaint Rd Wm F/U Obesity z47.[address] WM f/u Sinus infection WMN F/UP Z47.1 - Aftercare following joint replacement surg [address] WM f/u Sick-Did not test for [id number] Reason for Visit Sinusitis, acute max illary BMI 40.0-44.9, adult Fatty liver Hyperlipidemia Hypertension Pre-diabetes Aftercare following joint replacement Chest congestion Cough Chief Complaint Rd Wm F/U Obesity z47.[address] WM f/u Sinus infection WMN F/UP Z47.1 - Aftercare following joint replacement surg [address] WM f/u Sick-Did not test for [id number] Reason for Visit Sinusitis, acute max illary BMI 40.0-44.9, adult Fatty liver Hyperlipidemia Hypertension Pre-diabetes Aftercare following joint replacement Bronchitis Chest congestion Cough Chief Complaint Rd Wm F/U Obesity z47.[address] WM f/u BH Sinus infection WMN F/UP Z47.1 - Aftercare following joint replacement surg [address] WM f/u Sick-Did not test for [id number] RD WM f/u Reason for Visit Sinusitis, acute max illary BMI 40.0-44.9, adult Fatty liver Hyperlipidemia Hypertension Pre-diabetes Aftercare following joint replacement Bronchitis Chest congestion Cough BMI 40.0-44.9, adult Fatty liver Hyperlipidemia Pre-diabetes Additional Source Comments INFORMATION SOURCE (unrecogn ized section and content) DATE CREATED AUTHOR 04/29/2021 [facility] DATE CREATED AUTHOR AUTHOR'S ORGANIZ ATION 12/20/2022 [facility] DATE CREATED AUTHOR AUTHOR'S ORGANIZ ATION 03/09/2023 [facility] DATE CREATED AUTHOR AUTHOR'S ORGANIZ ATION 07/16/2023 [facility] DATE CREATED AUTHOR AUTHOR'S ORGANIZ ATION 12/01/2023 [facility] REASON FOR VISIT (unrecogniz ed section [...] Heatherprescription refillInitial WMNurine cultureBladder Infection/ Possible HerniaDC Voicemail LabsmessageHM fax lab requestre-certR INTRA ARTICULAR HIP JOINT INJ/RMC PTMEDSCONSULT DR DR Duy PIERCE RT HIP PAIN WX [facility] PT WILL BRING ON DISC#31 RED JEEP, H/A, N/V, CONGESTION, COVID Provider VisitFOLLOW UP AFER BONNIE LUMBAR FACET RFAS Care Teams (unrecognized sec tion and content) Team Status: Active Member Role Status Dates Waqas Pierce MD Primary Care Provider Active Team Status: Inactive Member Role Status Dates Grecia Pham [facility] Attending Provider Active Start: October 15, 2023 End: October 15, 2023 Team Status: Active Member Role Status [...] October 17, 2023 End: October 17, 2023 Team Status: Active Member Role Status Dates NON STAFF Primary Care Provider Active Start: October 23, 2023 Marcni Grace MD Attending Provider Active Start: October 23, 2023 Team Status: Inactive Member Role Status Dates Waqas Pierce MD Attending Provider Active St art: November 01, 2023 End: November 01, 2023 Team Status: Inactive Member Role Status Dates KOBY Roberson Attending Provider Active S tart: November 19, 2023 End: November 19, 2023 Waqas Pierce MD Primary Care Provider Active Start: November 19, 2023 End: November 19, 2023 Team Status: Inactive Member Role Status Dates Waqas Pierce MD Primary Care Provide r, Attending Provider Active Start: November 21, 2023 End: November 21, 2023 Team Status: Inactive Member Role Status Dates Rolando Castellanos MD Attending Provider Active Start: November 22, 2023 End: November 22, 2023 Waqas Pierce MD Primary Care Provider Active Start: November 22, 2023 End: November 22, 2023 Team Status: Inactive Member Role Status Dates Waqas Pierce MD Primary Care Provider Active Start: November 28, 2023 End: November 28, 2023 David Mcfarland II, MD Attending Provider Active Start: November 28, 2023 End: November 28, 2023 Team Status: Inactive Member Role Status Dates David Mcfarland II, MD Attending Provider Active Start: November 28, 2023 End: November 28, 2023 Waqas Pierce MD Primary Care Provider Active Start: November 28, 2023 End: November 28, 2023 Team Status: Inactive Member Role Status Dates KOBY Roberson Attending Provider Active S tart: December 10, 2023 End: December 10, 2023 Waqas Pierce MD Primary Care Provider Active Start: December 10, 2023 End: December 10, 2023 Team Status: Inactive Member Role Status Dates Waqas Pierce MD Primary Care Provider Active Start: December 26, 2023 End: December 26, 2023 Carrie Bhakta APRN [facility] Attending Provider Act pradeep Start: December 26, 2023 End: December 26, 2023 Team Status: Active Member Role Status [...] Care Provider Active Start: August 28, 2023 Marcin Grace MD Attending Provider Active Start: August 28, 2023 Team Status: Inactive Member Role Status Dates Grecia Pham [facility] Attending Provider Active Start: September 17, 2023 End: September 17, 2023 Team Status: Inactive Member Role Status Dates Rolando Castellanos MD Attending Provider Active Start: September 18, 2023 End: September 18, 2023 Team Status: Inactive Member Role Status Dates CHESTER Ortiz Attending Provider Active Start: September 19, 2023 End: September 19, 2023 Team Status: Inactive Member Role Status Dates Waqas Pierce MD Primary Care Provider Active Start: January 03, 2024 End: January 03, 2024 Rolando Castellanos MD Attending Provider Active Start: January 03, 2024 End: January 03, 2024 Team Status: Active Member Role Status Dates NON STAFF Primary Care Provider Active Start: November 20, 2023 Marcin Grace MD Attending Provider Active Start: November 20, 2023 Team Status: Inactive Member Role Status Dates Waqas Pierce MD Primary Care Provider Active Start: January 10, 2024 End: January 10, 2024 KOBY Roberson Attending Provider Active S tart: January 10, 2024 End: January 10, 2024 Goals (unrecognized section and content) Goals may [...] BE BASED ON THE PRIMARY CLINICAL RECORDS. [facility] [employer] provides no warranty or guarantee of the accuracy or completeness of information in this document.
--- NOTE | 2024-01-11 07:30 | CT_ITS ---
[address] [address] Patient Name: NAVARRO SMITH MRN: [id number] date: 1960 Sex: F Assigned Patient Location: LAB Current Patient Location: LAB Accession/Order Number: [id number] Exam Date: 01/11/2024 07:56 Report Date: 01/11/2024 09:14 At the request of: SOTO TOLENTINO Procedure: CT chest wo/w con EXAMINATION: CT chest wo/w con HISTORY: Solitary Pulmonary Nodule R91.1 COMPARISON: CT chest 08/12/2021 TECHNIQUE: Multi-planar CT images were obtained without and/or with IV contrast as indicated by examination type. Axial, Coronal, and Sagittal images. Dose reduction techniques were achieved by using automated exposure control and/or adjustment of mA and/or kV according to patient size and/or use of iterative reconstruction technique. FINDINGS: LUNGS: Stable 5 mm nodule within lateral left lower lobe near costophrenic angle. Stable appearance of a few small pleural plaques within posterior lower lobes. PLEURA: No mass, effusion, or pneumothorax. VASCULATURE: No abnormality. JENY: No mass or adenopathy. MEDIASTINUM: No mass or adenopathy. CARDIAC: No enlargement, pericardial thickening, or significant calcification. AORTA: No aneurysm or dissection. CHEST WALL: No mass or axillary adenopathy. BONES: No bone lesion or fracture. LIMITED ABDOMEN: Large hiatal hernia with majority of stomach above diaphragm. Limited images of the upper abdomen. OTHER: Negative. CT/CT chest wo/w con IMPRESSION: 1. Stable 5 mm nodule within left lower lobe and stable appearance of a few small pleural plaques. No new or suspicious nodules. Given the stability over past 2 1/2 years, no additional follow-up recommended. 2. Large hiatal hernia with majority of the stomach above diaphragm increased since prior study. Electronically authenticated by: ARIELA SCHWAB Date: 01/11/2024 09:14
[2024-01-11 07:33] LABS: Estimated GFR (African America >60 (>=60); Estimated GFR (Non-African Ame >60 (>=60)
== END 2024-01-11 07:16 | disposition home or self-care (01) ==
LOC: LAB 07:16
PROVIDERS: PCP Family Medicine; Visit Provider Nurse Practitioner Family
DX: R91.1 Solitary pulmonary nodule (principal)
CPT/HCPCS: 36415; 71270; 82565; Q9967

== ENCOUNTER 2024-04-02 09:32 | Outpatient (OUT) | payer OTHER, SELFPAY ==
--- NOTE | 2024-04-02 | XR_ITS ---
The [address] [address] Patient Name: NAVARRO SMITH MRN: [id number] date: 1960 Sex: F Assigned Patient Location: Current Patient Location: Accession/Order Number: [id number] Exam Date: 04/02/2024 09:35 Report Date: 04/03/2024 06:29 At the request of: AMY KASPER Procedure: XR ankle LT min 3V PROCEDURE: XR ankle LT min 3V, XR foot BONNIE min 3V HISTORY: LEFT ANKLE PAIN COMPARISON: XR ankle and foot left 10/31/2023 XR foot bilateral 07/04/2023 FINDINGS: BONES:Prior mechanical fusion of the left talocalcaneal and talonavicular joints via lag screws; no appreciable hardware fracture or loosening. Wedge placement within the left first tarsal-metatarsal joint. Prominent calcaneal plantar spur bilaterally. Moderate degenerative changes the midfoot and mild flattening of plantar arch bilaterally. SOFT TISSUES:No visible soft tissue swelling. EFFUSION:None visible. OTHER: Negative. XR/XR ankle LT min 3V IMPRESSION: 1. Stable surgical changes of the left foot without evidence of hardware failure or change in alignment. 2. Stable degenerative changes bilaterally. Electronically authenticated by: ARIELA SCHWAB Date: 04/03/2024 06:29
--- NOTE | 2024-04-02 | XR_ITS ---
The [address] [address] Patient Name: NAVARRO SMITH MRN: [id number] date: 1960 Sex: F Assigned Patient Location: Current Patient Location: Accession/Order Number: [id number] Exam Date: 04/02/2024 09:44 Report Date: 04/03/2024 06:29 At the request of: AMY KASPER Procedure: XR foot BONNIE min 3V PROCEDURE: XR ankle LT min 3V, XR foot BONNIE min 3V HISTORY: LEFT ANKLE PAIN COMPARISON: XR ankle and foot left 10/31/2023 XR foot bilateral 07/04/2023 FINDINGS: BONES:Prior mechanical fusion of the left talocalcaneal and talonavicular joints via lag screws; no appreciable hardware fracture or loosening. Wedge placement within the left first tarsal-metatarsal joint. Prominent calcaneal plantar spur bilaterally. Moderate degenerative changes the midfoot and mild flattening of plantar arch bilaterally. SOFT TISSUES:No visible soft tissue swelling. EFFUSION:None visible. OTHER: Negative. XR/XR foot BONNIE min 3V IMPRESSION: 1. Stable surgical changes of the left foot without evidence of hardware failure or change in alignment. 2. Stable degenerative changes bilaterally. Electronically authenticated by: ARIELA SCHWAB Date: 04/03/2024 06:29
== END 2024-04-02 09:33 | disposition home or self-care (01) ==
LOC: EC 09:32
PROVIDERS: PCP Family Medicine; Visit Provider Podiatrist Foot & Ankle Surgery
DX: M25.572 Pain in left ankle and joints of left foot (principal); M79.671 Pain in right foot; M24.672 Ankylosis, left ankle
CPT/HCPCS: 73610; 73630

== ENCOUNTER 2024-04-10 07:42 | Outpatient (OUT) | payer OTHER, SELFPAY ==
--- NOTE | 2024-04-10 07:58 | CT_ITS ---
The [address] [address] Patient Name: NAVARRO SMITH MRN: [id number] date: 1960 Sex: F Assigned Patient Location: CT Current Patient Location: CT Accession/Order Number: [id number] Exam Date: 04/10/2024 07:53 Report Date: 04/10/2024 08:22 At the request of: AMY KASPER Procedure: CT ankle LT wo con EXAMINATION: CT ankle LT wo con HISTORY: Nonunion Talonavicular COMPARISON: No relevant comparison available. TECHNIQUE: Multi-planar CT images were created without IV contrast. Dose reduction techniques were achieved by using automated exposure control and/or adjustment of mA and/or kV according to patient size and/or use of iterative reconstruction technique. FINDINGS: BONES: No acute fracture, dislocation or mechanical failure. Subtalar fusion with 2 cannulated screws. Bony bridging across the middle and posterior talocalcaneal joints. Fusion of the midfoot hindfoot with a single screw extending from the medial cuneiform through the navicular into the talus with out bony bridging at the talonavicular joint. Wedge in the first tarsometatarsal joint. Stable moderate to severe degenerative changes with joint space narrowing and subchondral cystic changes. Bone graft harvesting distal tibia SOFT TISSUES: Negative. No visible soft tissue swelling. EFFUSION: None visible. CT/CT ankle LT wo con IMPRESSION: Stable degenerative and postsurgical changes with no mechanical failure or acute fracture Nonunion of the talonavicular fusion Electronically authenticated by: SHAWNEE RAPHAEL Date: 04/10/2024 08:22
== END 2024-04-10 07:43 | disposition home or self-care (01) ==
LOC: CT 07:42
PROVIDERS: PCP Family Medicine; Visit Provider Podiatrist Foot & Ankle Surgery
DX: S82.892K Other fracture of left lower leg, subsequent encounter for closed fracture with nonunion (principal)
CPT/HCPCS: 73700

== ENCOUNTER 2024-05-08 13:01 | Outpatient (RCR) | payer MEDICARE, SELFPAY | END 2024-05-16 16:52 | disposition home or self-care (01) | LOC: PT 13:01 | PROVIDERS: PCP Family Medicine; Visit Provider Podiatrist Foot & Ankle Surgery | DX: M19.072 Primary osteoarthritis, left ankle and foot (principal); R26.9 Unspecified abnormalities of gait and mobility; R26.89 Other abnormalities of gait and mobility | CPT/HCPCS: 97110; 97161; 97530 ==

== ENCOUNTER 2024-06-17 06:46 | Outpatient (OUT) | payer MEDICARE, SELFPAY ==
--- NOTE | 2024-06-17 | XR_ITS ---
The [address] [address] Patient Name: NAVARRO SMITH MRN: [id number] date: 1960 Sex: F Assigned Patient Location: LAB Current Patient Location: LAB Accession/Order Number: [id number] Exam Date: 06/17/2024 07:19 Report Date: 06/17/2024 12:09 At the request of: WAQAS PIERCE Procedure: XR chest 2V PROCEDURE: XR chest 2V DATE: 06/17/2024 6:19 AM CDT COMPARISONS: 12/26/2023 CLINICAL INDICATION: 64 years Female Change in voice FINDINGS: The cardiomediastinal silhouette and pulmonary vasculature are within normal limits. The lungs are clear. There is no evidence of pleural effusion or pneumothorax. Moderate size hiatal hernia is again identified. XR/XR chest 2V IMPRESSION: Moderate size hiatal hernia. Chest radiograph is otherwise within normal limits and stable. Electronically authenticated by: VANDANA ZHANG Date: 06/17/2024 12:09
--- OUTSIDE RECORDS SUMMARY | 2024-06-17 06:50 | XMS_ITS | CCD ---
Author Organization [facility] CliniSymn Care Team Providers Care Injection Specialist Name Role Phone SELF, REFERRED Referring Unavailable DAVID LR Admitting Unavailable DAVID LR Attending Unavailable WAQAS PIERCE Primary Care Unavailable DAVID LR Surgeon Unavailable SC Procedure Practitioner Unavailab JUDSON Martinez Surgeon Unavailable SC Procedure Practitioner Unavailab Junior Peterson Unavailable Mallory Yuen Unavailable NON STAFF Primary Care Provider UnavailMD David Merritt II Attending Provider David Mcfarland II Unavailable [phone] MD Waqas Pierce Primary Care Provider [phone] MD Waqas Pierce Attending Provider [phone] WAQAS PIERCE Primary Care Physician Waqas Pierce Unavailable Rachel Vela Unavailable Rolando Castellanos Unavailable Grecia Carrera Unavailable Efrain CORTES Attending Unavailable NILEfrain Tsang Attending Unavailable KARI, DR WAQAS Mendez Primary Care Unavailable AMY KASPER Attending Unavailable AMY KASPER Admitting Unavailable KARI, DR WAQAS Mendez Primary Care Unavailable NILL ., DR SHARMA Attending Unavailable NILL ., DR SHARMA Admitting Unavailable NILL ., DR SHARMA Consulting Unavailable DIEGO WHITLEY Consulting Unavailable MARIA EUGENIA HUTTON Consulting Unavailable KARI, DR WAQAS Mendez Primary Care Unavailable JASMIN, DR MARSHALL Attending Unavailable JASMIN, DR MARSHALL Admitting Unavailable JASMIN, DR MARSHALL Consulting Unavailable KARI, DR WAQAS Mendez Primary Care Unavailable AMY KASPER Attending Unavailable WESTON, DR SHAWNEE James Consulting Unavailable AMY KASPER [...] Unavailable HIGHLANDER, AMY Iverson Attending Unavailable HIGHLANDER, MAY D Admitting Unavailable RYANALEX Mendez Consulting Unavailable [...] Consulting Unavailable HIGHLANDER, AMY D Attending Unavailable PIERCE, DR WAQAS Mendez Primary Care Unavailable HIGHLANDER, PETER Kishor Admitting Unavailable PIERCE, DR WAQAS Mendez Primary [...] HIGHLANDER, AMY D Admitting Unavailable HIGHLANDER, AMY D Admitting Unavailable HIGHLANDER, AMY Iverson Attending [...] Consulting Unavailable FAWWAD, ROWLAND H Attending Unavailable FAWWAD, ROWLAND H Admitting Unavailable PIERCE, DR WAQAS Mendez Primary Care Unavailable ZHAEER, DR ARIELA Vaz Consulting Unavailable LAMIN MOHAN Consulting Unavailable HIGHLANDER, AMY Iverson Consulting Unavailable AGMELINDA DOVER Consulting Unavailable RANJITH, AMY Iverson Procedure Practitioner Unava ilenid GIL ., ELICEO Consulting Unavailable TRUED, ROWLAND H Consulting Unavailable TUNDE NORMAN Consulting Unavailable DEVIN, AMRITCHIE Consulting Unavailable AA, AA Consulting Unavailable PIERCE, DR WAQAS Mendez Primary Care Unavailable CHUCKY ., DR MALAVE Attending Unavailable CHUCKY ., DR MALAVE Consulting Unavailable CHUCKY ., DR MALAVE Admitting Unavailable ZIEBER, DR ARIELA Vaz Consulting Unavailable PIERCE, DR WAQAS Mendez Primary Care Unavailable HIGHLANDER, AMY Iverson Attending Unavailable HIGHLANDER, PETER Kishor Admitting Unavailable WEST, DR SHAWNEE James Consulting [...] Care Unavailable HIGHLANDER, PETER D Admitting Unavailable KIMBERLY AMADOR Attending Unavailable KIMBERLY AMADOR Attending Unavailable MD David Mcfarland II Attending Provider MD Waqas Pierce Primary Care Provider NON STAFF Primary Care Provider Unavailsabino mendez Carrie Perea Unavailable MD David Mcfarland II Attending Provider [phone] MD Waqas Pierce Primary Care Provider NON STAFF Primary Care Provider UnavailMD Marcin Chambers Attending Provider MD David Mcfarland II Attending Provider MD David Mcfarland II Attending Provider [phone] MD Waqas Pierce Primary Care Provider NON STAFF Primary Care Provider UnavailMD Marcin Chambers Attending Provider MD Marcin Grace Attending Provider MD David Mcfarland II Attending Provider MD Waqas Pierce Primary Care Provider [phone] MD David Mcfarland II Attending Provider NON STAFF Primary Care Provider UnavailMD Marcin Chambers Attending Provider [phone] NON STAFF Primary Care Unavailable Marcin Grace Attending Unavailab Marcin Ramos Admitting Unavailab le Bartolo II, David Gordillo Admitting Unavailabl e Bartolo II, David Gordillo Attending Unavailabl e Waqas Pierce Primary Care Unavailable NON STAFF Primary Care Unavailable Whatcom II, David Gordillo Admitting Unavailabl e Bartolo II, David Gordillo Attending Unavailabl e NON STAFF Primary Care Unavailable Whatcom II, David Gordillo Attending Unavailabl e Bartolo II, David Gordillo Admitting Unavailabl e Whatcom II, David Gordillo Admitting Unavailabl e Whatcom II, David Gordillo Attending UnavailWaqas Dumont Primary Care Unavailable NON STAFF Primary Care Unavailable Whatcom II, David Gordillo Admitting Unavailabl e Whatcom II, David Gordillo Attending Unavailabl e NON STAFF Primary Care Unavailable Bartolo II, David Gordillo Attending Unavailabl e Whatcom II, David Gordillo Admitting Unavailabl e NON STAFF Primary Care Unavailable Bartolo II, David Gordillo Attending Unavailabl e Bartolo II, David Gordillo Admitting Unavailabl e Allergies Allergy Classification Reported Allergen(s) Allergy Type Date of Onset Reaction(s) Facility metFORMIN (1 source) metFORMIN; Translations: [METFORMIN] Drug Allergy 12-17-19 [facility] Penicillins (antibiotic) (1 source) Penicillin Drug Allergy 03-11-20 18 [facility] Serotonin (1 source) Serotonin; Translations: [SEROTONIN] Drug Allergy 12-17-19 21 [facility] (20 sources) Penicillin G Drug Allergy 11-01-[address] [facility] (20 sources) CYMBOLTA Propensity to adverse reactions temporary blindness and couldnt feel herself breathing [facility] Other (20 sources) DULoxetine; Translations: [duloxetine] Drug Allergy 09-05-20 22 Impairment level of vision (disorder) [facility] [place] (20 sources) metFORMIN; Translations: [metformin] Drug Allergy 09-05-20 22 Abdominal mass (finding) [facility] [place] (20 sources) Penicillin; Translations: [penicillin] Drug Allergy 08-08-20 13 Eruption of skin (disorder) [facility] [place] (1 source) DULoxetine Drug Allergy [facility] (1 source) metFORMIN Drug Allergy [facility] (16 sources) Penicillins; Translations: [PENICILLINS] Drug allergy (disorder) 10-01-19 00 Rash [facility] (20 sources) Rx Essentials Antidepressant *HEMATOPOIETIC AGENTS Propensity to adverse reactions Comment:[facility] Other (3 sources) Allergies Reconciled Propensity to adverse reactions 08-17-20 21 Unknown [facility] Other (20 sources) Substance with penicillin structure and antibacterial mechanism of action (substance) Drug allergy Unknown [facility] Other (20 sources) Substance with serotonin re-uptake inhibitor mechanism of action (substance) Drug allergy 09-04-20 12 SEROTONIN HCL [facility] [place] Other (3 sources) patient allergy list reviewed by nurse or physicia Propensity to adverse reactions 12-09-19 14 Comment:Done [facility] Other (14 sources) Serotonin Drug Allergy 08-28-20 23 temporary blindness, couldn't feel self breath [facility] (11 sources) Rx Essentials Antidepressant * Allergy to substance 11-01-19 24 Comment:[facility] (1 source) DULoxetine Drug Allergy 08-28-20 23 [facility] (1 source) metFORMIN Drug Allergy 08-28-20 23 [facility] (1 source) Penicillins Drug allergy (disorder) 08-28-20 23 [facility] Medications Current Medications Medication Drug [...] Start: 08-30-2023 take 2 tablets by mo uth every eight hours for pain Acetaminophen 500 MG 2 tablets for pain Orally every 8 hrs for 30 days MED TO BED UPON DISCHARGE DOS: 09/03/23 Aug, Active Tylenol Active [id number] 200 actuat albuterol 0.09 mg/actuat metered dose inhaler (11 sources) beta2-Adrenergic Agonist Start: 05-08-2024 take 2 puff(s) by mouth every four to six hours as needed for wheezing Albuterol Sulfate Active 0 .ROUTE .COMPLEX 6.7 May 08, 2024 9:56am INHALE 2 PUFFS BY MOUTH EVERY 4 TO 6 HOURS NEEDED SHORTNESS OF BREATH or FOR WHEEZING Start: 01-01-2024 End: 05-08-2024 take 1 puff(s) by inhalation every four to six hours Albuterol Sulfate Discontinued 2 PUFF INHALATION EVERY 4-6 HOURS 6.7 January 01, 2024 12:00am May 08, 2024 9:56am Start: 01-01-2024 take 1 puff(s) by in halation every four to six hours Albuterol Sulfate [...] (20 sources) Nonsteroidal Anti-inflammatory Drug Start: 12-21-19 End: 03-11-20 24 take 1 tablet by mouth twice daily Diclofenac Sodium Active 0 .ROUTE .COMPLEX 180 March 11, 2024 9:07am TAKE 1 TABLET BY MOUTH TWICE DAILY [...] Ordered docusate sodium 50 mg / sennosides, assisted 8.6 mg oral tablet (12 sources) Start: [...] oral tablet (20 sources) l-Thyroxi ne Start: 06-10-2024 take 1 tablet by mouth once daily in the morning Levothyroxine Active 0 .ROUTE .COMPLEX June 10, 2024 8:46am TAKE 1 TABLET BY MOUTH ONCE DAILY IN THE MORNING ON AN EMPTY STOMACH Start: 01-09-2024 End: 06-10-2024 take 1 tablet by mouth in the morning Levothyroxine Discontinued 0 .ROUTE .COMPLEX January 09, 2024 2:16pm June 10, 2024 8:46am TAKE 1 TABLET BY MOUTH IN THE [...] once daily Pantoprazole Active 0 .ROUTE .COMPLEX May 12, 2024 11:42am TAKE 1 TABLET BY MOUTH DAILY Start: 03-11-2024 End: 05-12-2024 take 1 tablet by mouth once daily Pantoprazole Discontinued 0 .ROUTE .COMPLEX March 11, 2024 9:06am May 12, 2024 11:42am TAKE 1 TABLET BY MOUTH DAILY Start: 11-21-2023 End: 03-11-2024 take 1 tablet by mouth once daily Pantoprazole Discontinued 0 .ROUTE .COMPLEX November 21, 2023 1:47pm March 11, 2024 9:07am TAKE 1 TABLET BY MOUTH DAILY Start: [...] Once a day Active polyethylene glycol 3350 64246 mg powder for oral solution (12 sources) [...] 0 100-150 MG-UNIT as directed Orally Active Triamcinolone Acet-Ciclopirox 0.1 & 8 % (20 [...] (1999) (3 sources) take 1 capsule by [facility] once daily Vitamin D 50 MCG (1999) [...] BED UPON DISCHARGE DOS: 09/03/23 Aug, Not-Taking/PRN doxycycline monohydrate 100 mg oral capsule (11 sources) Tetracycline-class Drug Start: 12-26-2023 End: 02-21-2024 take 100 mg by mouth twice daily Doxycycline Monohydrate Discontinued 100 MG PO Twice daily 20 07December 26, 2023 12:00am February 21, 2024 10:19am Start: 10-19-2019 take 1 capsule by [facility] every twelve hours Doxycycline Monohydrate [...] mg / trimethoprim 160 mg oral tablet (10 sources) Dihydrofolate Reductase Inhibitor Antibacterial, Sulfonamide Antimicrobial Start: 11-21-2023 End: 12-26-2023 take 1 tablet by mouth twice daily Sulfamethoxazole- Trimethoprim Discontinued 1 TAB PO Twice daily November 21, 2023 1:00am December 26, 2023 8:55am Tirzepatide (18 sources) Start: 02-21-2024 End: 02-21-2024 Tirzepatide (Mounjaro) 2.5 mg/0.5 mL pen injector Discontinued 2.5 MG SUBCUT every week February 21, 2024 10:19am February 21, 2024 10:49am Start: 02-21-2024 Tirzepatide (M ounjaro) 2.5 mg/0.5 mL pen injector Active 2.5 MG SUBCUT every week February 21, 2024 10:19am Start: 08-28-2023 End: 02-21-2024 Tirzepatide (Mounjaro) 2.5 m g/0.5 mL Pen Injector Discontinued 2.5 MG SUBCUT every week August 28, 2023 1:00am February 21, 2024 10:20am Start: 08-28-2023 Tirzepatide (Duy ridley) 2.5 mg/0.5 mL Pen Injector Active 2.5 MG SUBCUT every week August 28, 2023 1:00am Start: 08-28-2023 Tirzepatide (Duy ridley) 2.5 mg/0.5 mL Pen Injector Active 2.5 MG SUBCUT every week August 28, 2023 12:00am traMADol hydrochloride 50 mg oral tablet (20 sources) Opioid Agonist Start: 08-30-2023 take 1 tablet by mouth every six hours as needed for pain traMADol HCl 50 MG 1 tablet as needed for pain Orally every 6 hrs for 10 days MED TO BED UPON DISCHARGE DOS: 09/03/23 30 Aug, 2023 Not-Taking/PRN traMADol HCl 50 MG 1 tablet [...] Episodic Chronic obstructive pulmonary disease and bronchiectasis (12 sources) Bronchitis; Translations: [Bronchitis, not specified as [...] following joint replacement surgery] Chronic Other aftercare (7 sources) Aftercare following joint replacement surgery; Translations: [Aftercare following joint replacement] Chronic Other aftercare (2 sources) Other ocean transportation intermediary (current) drug therapy; Translations: [OTH SENIOR CARE CURRENT DRUG THERAPY] Onset: 3 Episodic Other circulatory disease (3 sources) Elevated blood-pressure reading without diagnosis of hypertension; Translations: [Elevated blood-pressure reading, without diagnosis of hypertension] Episodic Other circulatory disease (8 sources) Pulmonary congestion ; Translations: [Other specified symptoms and signs involving the circulatory and respiratory systems] 12-26-2023 Episodic Other circulatory disease (6 sources) Other specified symptoms and signs involving [...] Onset: 7 11-22-2023 Chronic Other liver diseases (19 sources) Fatty (change of) liver, not elsewhere classified; Translations: [Other chronic nonalcoholic liver disease] Onset: 3 Chronic Other lower respiratory disease (1 source) Nodule of lung 08-16-2020 Episodic Other lower respiratory disease (20 sources) Cough; Translations: [Cough, unspecified] 12-26-2023 Episodic Other lower respiratory disease (10 sources) Solitary nodule of lung; Translations: [Solitary [...] metabolic disorders (20 sources) Body mass index (BMI) 40.0-44.9, adult; [...] rhinitis] Onset: 8 Chronic Other upper respiratory disease (1 source) Change in voice; Translations: [Unspecified voice and resonance disorder] 06-16-2024 Episodic Other upper respiratory disease (1 source) Unspecified voice and resonance disorder; Translations: [Other voice and resonance disorders] 06-16-2024 Episodic Other upper respiratory infections (3 sources) Chronic sinusitis; Translations: [Chronic sinusitis, unspecified] Chronic Other upper respiratory infections (17 sources) Acute maxillary sinusitis; Translations: [Acute maxillary [...] sources) Tobacco user; Translations: [Tobacco use] Episodic Residual codes; unclassified (1 source) Family history of Von Willebrand disease; Translations: [Family history of diseases of the blood and blood-forming organs and certain disorders involving the immune mechanism] 06-16-2024 Episodic Residual codes; unclassified (1 source) Family history of diseases of the blood and blood-forming organs and certain disorders involving the immune mechanism; Translations: [Family history of other blood disorders] 06-16-2024 Episodic Spondylosis; intervertebral disc disorders; other back [...] [Unilateral primary osteoarthritis, right hip] Onset: 3 Urinary tract infections (6 sources) [...] [ACUTE KIDNEY FAILURE UNSPECIFIED] Onset: 05-16-2022 Episodic Administrative/social admission (1 source) Dietary counseling and surveillance; Translations: [Dietary counseling and surveillance] Onset: 10-15-2023 Episodic Fever of unknown origin (4 sources) [...] and structure, left ankle and foot; Translations: [[facility] D/O BONE DEN STRUCT LT ANK FOOT] [...] or systems; Translations: [FAM HX MALIG NEOPLASM OT ORGN/SYS] Onset: 11-05-2022 Episodic Screening and history [...] Test Name Value Interpretation Reference Range Facility Estimated glomerular filtrat ion rate (GFR) non- Americanon 01-11-2024 GFR/1.73 sq M.predicted among non-blacks MDRD (S/P/Bld) [Vol rate/Area] mL/min/{1.73_m2} >=60 [facility] - Chemistry and C hemistry - challengeon 01-11-2024 Creatinine [Mass/Vol] 0.85 mg/dL 0.55-1.[address] [facility] GFR/1.73 sq M.predicted MDRD (S/P/Bld) [Vol rate/Area] mL/min/{1.73_m2} >=60 [facility] XR hip RT min 2V(w/wo pelvis )*on 11-28-2023 XR hip RT min 2V(w/wo pelvis)* [facility] [place] [address] XRay Report Signed Patient: Nicol Smith MR#: [id number] 9 : 1960 Acct:[id number] Age/Sex: 63 / F ADM Date: 11/28/23 Loc: [facility] Room: Type: [facility] Attending Dr: David Mcfarland II, MD [...] COMPLICATION.. Impression dictated by: Stalin Matamoros Jr., DMiguelOMiguel11/28/2023 1:06 PM Dictation Location: RADIO-PC-12 Transcribed By: SILVIA 11/28/23 1306 Dictated By: Stalin Matamoros Jr, DO 11/28/23 1305 Signed By: 11/28/23 1306 Normal [facility] XR hip RT min 2V(w/wo pelvis )*on 10-17-2023 XR hip RT min 2V(w/wo pelvis)* [place] [address] XRay Report Signed Patient: Nicol Smith MR#: [id number] 9 : 1960 Acct:[id number] Age/Sex: 63 / F ADM Date: 10/17/23 Loc: [facility] [place] [facility] Room: Type: [facility] Attending Dr: David Mcfarland II, MD [...] DO 10/17/23 1538 Signed By: 10/17/23 153 Normal [facility] XR hip RT min 2V(w/wo pelvis)* [facility] [place] Other XR hip RT min 2V(w/wo pelvis)* [facility] [place] Other XR hip RT min 2V(w/wo pelvis)* [address] [facility] Other XR hip RT min 2V(w/wo pelvis)* DARSHAN Tang [address] [facility] Other XR hip RT min 2V(w/wo pelvis)* XRay Report [facility] Other XR hip RT min 2V(w/wo pelvis)* Signed [facility] Other XR hip RT min 2V(w/wo pelvis)* Patient: Nicol Smith MR#: [id number] [facility] Other XR hip RT min 2V(w/wo pelvis)* 9 [facility] Other XR hip RT min 2V(w/wo pelvis)* : 1960 Acct:[id number] [facility] Other XR hip RT min 2V(w/wo pelvis)* Age/Sex: 63 / F ADM Date: 10/17/23 [facility] Other XR hip RT min 2V(w/wo pelvis)* Loc: [facility] Room: Type: [facility] Other XR hip RT min 2V(w/wo pelvis)* Attending Dr: David Mcfarland II, MD [facility] Other XR hip RT min 2V(w/wo pelvis)* Copies to: David Mcfarland MD [facility] Other XR hip RT min 2V(w/wo pelvis)* Ordering Provider: David Mcfarland MD [facility] Other XR hip RT min 2V(w/wo pelvis)* Date of Service: 10/17/23 [facility] Other XR hip RT min 2V(w/wo pelvis)* XR/XR hip RT min 2V(w/wo pelvis)*: Aftercare following joint replacement [facility] Other XR hip RT min 2V(w/wo pelvis)* surgery;[facility] [place] Other XR hip RT min 2V(w/wo pelvis)* 2 views right hip with single view pelvis plain film [facility] Other XR hip RT min 2V(w/wo pelvis)* COMPARISON: 09/03/2023 [facility] Other XR hip RT min 2V(w/wo pelvis)* HISTORY: Status post right total hip arthroplasty [facility] Other XR hip RT min 2V(w/wo pelvis)* ACUTE FINDINGS: None [facility] Other XR hip RT min 2V(w/wo pelvis)* DEGENERATIVE CHANGE: Unremarkable [facility] Other XR hip RT min 2V(w/wo pelvis)* SOFT TISSUE FINDINGS: Unremarkable [facility] Other XR hip RT min 2V(w/wo pelvis)* JOINT EFFUSION: None [facility] Other XR hip RT min 2V(w/wo pelvis)* POSTOP CHANGES: Stable bilateral hip arthroplasties. [facility] Other XR hip RT min 2V(w/wo pelvis)* BONY MINERALIZATION: Adequate [facility] Other XR hip RT min 2V(w/wo pelvis)* XR/XR hip RT min 2V(w/wo pelvis)* [facility] Other XR hip RT min 2V(w/wo pelvis)* IMPRESSION: Stable right hip arthroplasty. [facility] Other XR hip RT min 2V(w/wo pelvis)* Impression dictated by: Kane Katz M.D.10/17/2023 3:39 PM [facility] Other XR hip RT min 2V(w/wo pelvis)* Dictation Location: [place] [address] [facility] Other XR hip RT min 2V(w/wo pelvis)* Transcribed By: PWS 10/17/23 8305 [facility] Other XR hip RT min 2V(w/wo pelvis)* Dictated By: Kane Katz DO 10/17/23 7062 [facility] Other XR hip RT min 2V(w/wo pelvis)* Signed By: [facility] Other XR hip RT min 2V(w/wo pelvis)* 10/17/23 9299 [facility] Other ABO/Rh Retypeon 09-03-2023 ABO/RH Recheck Result Positive Normal [facility] Comment on above: Result Comment: PERF ORMED BY: [facility] [address] [place] [address] PATHOLOGIST CLOTH DYE RANGE OPERATOR SUAD Killian 09-03-2023 L ------ Specimen: [id number] Received: 09/03/23 Status: GRACIELA Chavez Num: [id number] Spec Type: Surgical Subm Dr: David Mcfarland MD Tissues: A Femoral Head - Other than Fracture (RT HIP) Procedures: HE/2, Gross/Micro L3, Decalcification Age/ Patient Sex Location Account Attending Physician Nicol Smith 63/F [place] [id number] David Mcfarland MD SPEC NUM: [id number] RECD: 09/03/23 STATUS: GRACIELA CHAVEZ NUM: [id number] SABRINA: 09/03/23 [facility] DR: David Mcfarland MD ENTERED: 09/03/23 [facility]IN[facility]ED [...] is taken. Gross examination only. CPT Codes 52869 Specimen: [id number] Received: 09/03/23 Status: GRACIELA Chavez Num: [id number] Spec Type: Surgical Subm Dr: David Mcfarland MD Tissues: A Femoral Head - Other than Fracture (RT HIP) Procedures: HE/2, Gross/Micro L3, Decalcification Patient: Nicol Smith [id number] (Continued) Specimen: [id number] Received: 09/03/23 (Continued) Signed (signature on file) Dez Núñez MD 09/07/23 1345 Specimen: [id number] Received: 09/03/23 Status: GRACIELA Chavez Num: [id number] Spec Type: Surgical Subm Dr: David Mcfarland MD Tissues: A Femoral Head - Other than Fracture (RT HIP) Procedures: HE/2, Gross/Micro L3, Decalcification Patient: Nicol Smith [id number] (Continued) Specimen: [id number] Received: 09/03/23 (Continued) Maikol Photo Specimen: [id number] Received: 09/03/23 Status: GRACIELA Bell: [id number] Spec Type: Surgical Subm Dr: David Mcfarland MD Tissues: A Femoral Head - Other than Fracture (RT HIP) Procedures: HE/2, Gross/Micro L3, Decalcification Patient: Nicol Smith [id number] (Continued) Signed (signature on file) Dez Núñez MD 09/07/23 1345 Normal [facility] XR low pelvis w/RT x-table h ipon 09-03-2023 XR low pelvis w/RT x-table hip [facility] [place] [address] XRay Report Signed Patient: Nicol Smith MR#: [id number] 9 : 1960 Acct:[id number] Age/Sex: 63 / F ADM Date: 09/03/23 Loc: [place] Room: Type: [facility] Attending Dr: David Mcfarland II, MD Copies to: David Mcfarland MD Ordering Provider: David Mcfarland MD Date of Service: 09/03/23 XR/XR low pelvis w/RT x-table hip: Total Hip, due in PACU ([id number]) XR/XR hip RT 1V: ANTERIOR HIP IN [...] Anna Hull M.D.09/03/2023 11:53 AM Dictation Location: [place] [address] Transcribed By: [facility] 09/03/23 1153 Dictated By: Anna Hull MD 09/03/23 1150 Signed By: 09/03/23 115 Normal [facility] Automated basophil %Ordered By: David Mcfarland on 08-28-2023 Basophils/100 WBC (Bld) 1.1 % Normal . [facility] Comment on above: Performed By: #### C HOPE BMP #### [address] #### FRUC #### [facility] , Automated basophil countOrde red By: David Mcfarland on 08-28-2023 Basophils (Bld) [#/Vol] 0.1 10*3/uL Normal 0.0-0.2 [facility] Comment on above: Result Comment: PERF ORMED BY: [place] [address] PATHOLOGIST CLOTH DYE RANGE OPERATOR SUAD ARREAGA M.D. Performed By: #### C HOPE BMP #### [address] #### FRUC #### [facility] , Automated blood monocyte cou ntOrdered By: David Mcfarland on 08-28-2023 Monocytes (Bld) [#/Vol] 0.5 10*3/uL Normal 0.0-0.8 [facility] Comment on above: Performed By: #### C BC, BMP #### [facility] [address] [place] [address] [place] #### FRUC #### [facility] , Automated eosinophil %Ordere d By: David Mcfarland on 08-28-2023 Eosinophils/100 WBC (Bld) 1.0 % Normal . [facility] Comment on above: Performed By: #### C BC, BMP #### [place] [address] [place] #### FRUC #### [facility] , Automated eosinophil countOr dered By: David Mcfarland on 08-28-2023 Eosinophils (Bld) [#/Vol] 0.1 10*3/uL Normal 0.0-0.45 [facility] Comment on above: Performed By: #### C BC, BMP #### [facility] [address] [place] [address] [place] #### FRUC #### [facility] , Automated erythrocytes count in urine sediment (number/area)Ordered By: David Mcfarland on 08-28-2023 RBC Auto (Urine sed) [#/Area] 1-2 [HPF] 0-4 [facility] Automated leukocytes count i n urine sediment (number/area)Ordered By: David Mcfarland on 08-28-2023 WBC Auto (Urine sed) [#/Area] 10-19 [HPF] 0-4 [facility] Automated monocyte %Ordered By: David Mcfarland on 08-28-2023 Monocytes/100 WBC (Bld) 7.6 % Normal . [facility] Comment on above: Performed By: #### C BC, BMP #### [place] [address] [place] #### FRUC #### [facility] , Automated neutrophil %Ordere d By: David Mcfarland on 08-28-2023 Neutrophils/100 WBC (Bld) 65.0 % Normal . [facility] Comment on above: Performed By: #### C BC, BMP #### [place] [address] [place] #### FRUC #### [facility] , Automated urine color determ inationOrdered By: David Mcfarland on 08-28-2023 Color (U) Yellow Normal Yellow [facility] Comment on above: Order Comment: Name Collection Type:: Clean-Voided Midstream Performed By: #### A DDONUAPLUS, CUU #### [address] Basic Metabolic Panelon 08-02 GFR/1.73 sq M.predicted MDRD (S/P/Bld) [Vol rate/Area] mL/min/{1.73_m2} Normal [facility] Comment on above: Performed By: #### C HOPE, BMP #### [address] #### FRUC #### [facility] , Bilirubin Test strip Ql (U)O rdered By: David Mcfarland on 08-28-2023 Bilirubin Ql (U) Negative Negative [facility] Calcium [Mass/volume] in Ser um or PlasmaOrdered By: David Mcfarland on 08-28-2023 Calcium [Mass/Vol] 9.7 mg/dL Normal 8.6-10.3 [facility] Comment on above: Result Comment: PERF ORMED BY: [place] [address] PATHOLOGIST CLOTH DYE RANGE OPERATOR SUAD ARREAGA M.D. Performed By: #### C BC, BMP #### [place] [address] [place] #### FRUC #### [facility] , Carbon dioxide, total [Moles /volume] in Serum or PlasmaOrdered By: David Mcfarland on 08-28-2023 CO2 [Moles/Vol] 26.1 mmol/L Normal 21.0-31.0 [facility] Comment on above: Performed By: #### C BC, BMP #### [facility] [address] [place] [address] [place] #### FRUC #### [facility] , Chloride [Moles/volume] in S adela or PlasmaOrdered By: David Mcfarland on 08-28-2023 Chloride [Moles/Vol] 107 mmol/L Normal 98-107 [facility] Comment on above: Performed By: #### C BC, BMP #### [facility] [address] [place] [address] [place] #### FRUC #### [facility] , Complete Blood Count Auto Di ffon 08-28-2023 Mean Corpuscular HGB Conc 32.1 g/dL Normal 32.0-35.0 [facility] Comment on above: Performed By: #### C BC, BMP #### [facility] [address] [place] [address] [place] #### FRUC #### [facility] , NRBC% 0.1 /100{WBC} Normal 0-0.5 [facility] Comment on above: Performed By: #### C BC, BMP #### [place] [address] [place] #### FRUC #### [facility] , Creatinine [Mass/volume] in Serum or PlasmaOrdered By: David Mcfarland on 08-28-2023 Creatinine [Mass/Vol] 0.96 mg/dL Normal 0.60-1.[address] [facility] Comment on above: Performed By: #### C BC, BMP #### [facility] [address] [place] [address] [place] #### FRUC #### [facility] , Dipstick and Microscopicon 1 10-28-2022 Appearance (U) Clear Normal Clear [facility] Comment on above: Order Comment: Name Collection Type:: Clean-Voided Midstream Performed By: #### A DDONUAPLUS, CUU #### [address] Bacteria,Urine None Seen Normal None Seen [facility] Comment on above: Order Comment: Name Collection Type:: Clean-Voided Midstream Performed By: #### A DDONUAPLUS, CUU #### [address] Bilirubin,Urine Negative Normal Negative [facility] Comment on above: Order Comment: Name Collection Type:: Clean-Voided Midstream Performed By: #### A DDONUAPLUS, CUU #### [address] Glucose Ql (U) Normal Normal Normal [facility] Comment on above: Order Comment: Name Collection Type:: Clean-Voided Midstream Performed By: #### A DDONUAPLUS, CUU #### [address] Hyaline Casts,Urine 0-8 Normal 0-8 [facility] Comment on above: Order Comment: Name Collection Type:: Clean-Voided Midstream Result Comment: PERF ORMED BY: [place] [address] PATHOLOGIST CLOTH DYE RANGE OPERATOR SUDA ARREAGA M.D. Performed By: #### A DDONUAPLUS, CUU #### [address] Ketones Ql (U) Negative Normal Negative [facility] Comment on above: Order Comment: Name Collection Type:: Clean-Voided Midstream Performed By: #### A DDONUAPLUS, CUU #### [address] Leukocyte esterase Test strip Ql (U) 3+ High Negative [facility] Comment on above: Order Comment: Name Collection Type:: Clean-Voided Midstream Performed By: #### A DDONUAPLUS, CUU #### [address] Nitrite,Urine Negative Normal Negative [facility] Comment on above: Order Comment: Name Collection Type:: Clean-Voided Midstream Performed By: #### A DDONUAPLUS, CUU #### [address] Occult Blood,Urine Negative Normal Negative [facility] Comment on above: Order Comment: Name Collection Type:: Clean-Voided Midstream Result Comment: PERF ORMED BY: [place] [address] PATHOLOGIST CLOTH DYE RANGE OPERATOR SUAD ARREAGA M.D. Performed By: #### A DDONUAPLUS, CUU #### [address] Protein,Urine Negative Normal Negative [facility] Comment on above: Order Comment: Name Collection Type:: Clean-Voided Midstream Performed By: #### A DDONUAPLUS, CUU #### [address] RBC,Urine 1-2 Normal 0-4 [facility] Comment on above: Order Comment: Name Collection Type:: Clean-Voided Midstream Performed By: #### A DDONUAPLUS, CUU #### [address] Specificy [place],Urine 1.020 Normal 1.001-1.03 0 [facility] Comment on above: Order Comment: Name Collection Type:: Clean-Voided Midstream Performed By: #### A DDONUAPLUS, CUU #### [place] [address] [place] Squamous Epithelial Cell,Urine 3-4 High 0-2 [facility] Comment on above: Order Comment: Name Collection Type:: Clean-Voided Midstream Performed By: #### A DDONUAPLUS, CUU #### [address] Urobilinogen,Urine Normal Normal Normal [facility] Comment on above: Order Comment: Name Collection Type:: Clean-Voided Midstream Performed By: #### A DDONUAPLUS, CUU #### [facility] [address] WBC,Urine 10-19 High 0-4 [facility] Comment on above: Order Comment: Name Collection Type:: Clean-Voided Midstream Performed By: #### A DDONUAPLUS, CUU #### [address] ECG 12 lead ECGon 08-28-2023 ECG 12 lead ECG [facility] [place] [address] [place] [address] Electrocardiograph Report Signed Patient: Nicol Smith MR#: [id number] 9 : 1960 Acct:[id number] Age/Sex: 63 / F ADM Date: 08/28/23 Loc: Room: Type: [facility] Attending Dr: David Mcfarland II, MD [...] previous ECGs available Confirmed by NAHID PINEDA [facility] ([id number] on 08/28/2023 10:26:43 PM Referred By: BARTOLO Electronically Signed By:KAMARI MANN MD [facility] Transcribed By: MUS Signed By Jonathan Mann MD 08/28/232225 Normal [facility] Erythrocyte distribution wid th [Ratio] by Automated countOrdered By: David Mcfarland on 08-28-2023 Erythrocyte distribution width (RBC) [Ratio] 17.5 % High 11.9-15.3 [facility] Comment on above: Performed By: #### C BC, BMP #### [address] #### FRUC #### [facility] , Erythrocytes [#/volume] in B lood by Automated countOrdered By: David Mcfarland on 08-28-2023 RBC (Bld) [#/Vol] 4.74 10*6/uL Normal 3.60-5.00 [facility] Comment on above: Performed By: #### C BC, BMP #### [place] [address] [place] #### FRUC #### [facility] , Fructosamineon 08-28-2023 Fructosamine 205 umol/L Normal 0-285 [facility] Comment on above: Result Comment: Publ ished reference interval for apparently healthy subjects between age 20 and 60 is 205 - 285 umol/L and in a poorly controlled diabetic population is 228 - 563 umol/L with a mean of 396 umol/L. Performed at: [facility] [place] [address] [place], [place] [id number] Diving Fisher: Luis Mukherjee PhD, Phone: [phone] PERFORMED BY: [place] [address] PATHOLOGIST CLOTH DYE RANGE OPERATOR SUAD ARREAGA M.D. Performed By: #### C BC, BMP #### [address] #### FRUC #### [facility] , Fructosamine [Moles/volume] in Serum or PlasmaOrdered By: David Mcfarland on 08-28-2023 Fructosamine [Moles/Vol] 205 umol/L 0-285 [facility] Comment on above: Published reference interval for apparently healthysubjects between age 20 and 60 is 205 - 285 umol/L and in apoorly controlled diabetic population is 228 - 563 umol/Lwith a mean of 396 umol/L.Performed at: [facility] [address] [place], [place] [id number] Director: Luis Mukherjee PhD, Phone: [phone] Glucose [Mass/volume] in Ser um or PlasmaOrdered By: David Mcfarland on 08-28-2023 Glucose [Mass/Vol] 98 mg/dL Normal 70-100 [facility] Comment on above: ADA recommended refe rence rangeRandom Glucose Reference Range is dependent on time and content of last meal. Glucose of more than 200 mg/dL in a nonstressed, ambulatory subject supports the diagnosis of Diabetes Mellitus. Result Comment: [place] om Glucose Reference Range is dependent on time and content of last meal. Glucose of more than 200 mg/dL in a nonstressed, ambulatory subject supports the diagnosis of Diabetes Mellitus. ADA recommended reference range Performed By: #### C BC, BMP #### [place] [address] [place] #### FRUC #### [facility] , Hematocrit [Volume Fraction] of Blood by Automated countOrdered By: David Mcfarland on 08-28-2023 Hematocrit (Bld) [Volume fraction] 36.9 % Normal 34.0-46.4 [facility] Comment on above: Performed By: #### C BC, BMP #### [place] [address] [place] #### FRUC #### [facility] , Hemoglobin [Mass/volume] in BloodOrdered By: David Mcfarland on 08-28-2023 Hemoglobin (Bld) [Mass/Vol] 11.9 g/dL Normal 11.8-15.4 [facility] Comment on above: Performed By: #### C BC, BMP #### [place] [address] [place] #### FRUC #### [facility] , Ketones Auto test strip (U) [Mass/Vol]Ordered By: David Mcfarland on 08-28-2023 Ketones (U) [Mass/Vol] Negative Negative [facility] - UrinalysisOrder ed By: David Mcfarland on 08-28-2023 Hyaline casts LM Ql (Urine sed) 0-8 [LPF] 0-8 [facility] Leukocytes [#/volume] correc janell for nucleated erythrocytes in Blood by Automated counOrdered By: David Mcfarland on 08-28-2023 WBC corrected for nucl RBC Auto (Bld) [#/Vol] 6.4 10*3/uL 3.8-11.6 [facility] Leukocytes [#/volume] in Blo od by Automated countOrdered By: David Mcfarland on 08-28-2023 WBC (Bld) [#/Vol] 6.4 10*3/uL Normal 3.8-11.6 [facility] Comment on above: Performed By: #### C BC, BMP #### [place] [address] [place] #### FRUC #### [facility] , Lymphocytes [#/volume] in Bl ood by Automated countOrdered By: David Mcfarland on 08-28-2023 Lymphocytes (Bld) [#/Vol] 1.6 10*3/uL Normal 1.00-4.8 [facility] Comment on above: Performed By: #### C BC, BMP #### [place] [address] [place] #### FRUC #### [facility] , Lymphocytes/100 leukocytes i n Blood by Automated countOrdered By: David Mcfarland on 08-28-2023 Lymphocytes/100 WBC (Bld) 25.3 % Normal . [facility] Comment on above: Performed By: #### C BC, BMP #### [facility] [address] [place] [address] [place] #### FRUC #### [facility] , MCH [Entitic mass] by Automa janell countOrdered By: David Mcfarland on 08-28-2023 MCH (RBC) [Entitic mass] 25.0 pg Normal 24.7-34.3 [facility] Comment on above: Performed By: #### C BC, BMP #### [place] [address] [place] #### FRUC #### [facility] , MCHC Auto (RBC) [Mass/Vol]Or dered By: David Mcfarland on 08-28-2023 MCHC (RBC) [Mass/Vol] 32.1 g/dL 32.0-35.[address] [facility] MCV [Entitic volume] by Auto mated countOrdered By: David Mcfarland on 08-28-2023 MCV (RBC) [Entitic vol] 78.0 fL Low 80-100 [facility] Comment on above: Performed By: #### C BC, BMP #### [facility] [address] [place] [address] [place] #### FRUC #### [facility] , Neutrophils [#/volume] in Bl ood by Automated countOrdered By: David Mcfarland on 08-28-2023 Neutrophils (Bld) [#/Vol] 4.2 10*3/uL Normal 1.8-7.7 [facility] Comment on above: Performed By: #### C BC, BMP #### [facility] [address] [place] [address] [place] #### FRUC #### [facility] , Nitrite Test strip Ql (U)Ord ered By: David Mcfarland on 08-28-2023 Nitrite Ql (U) Negative Negative [facility] No Panel InformationOrdered By: David Mcfarland on 08-28-2023 Estimated GFR (CKD-EPI) > 60.0 mL/Min [facility] Creatinine Clearance (Chem N/A [facility] Nucleated erythrocytes [Pres ence] in Blood by Automated countOrdered By: David Mcfarland on 08-28-2023 Nucleated RBC Auto Ql (Bld) 0.1 /100{WBC} 0-0.5 [facility] PST Type and Screenon 2022 ABO and Rh group Nom (Bld) Blood group B Rh(D) positive Normal [facility] Comment on above: Order Comment: Date of Surgery: [id number] Platelet mean volume [Entiti c volume] in Blood by Automated countOrdered By: David Mcfarland on 08-28-2023 Platelet mean volume (Bld) [Entitic vol] 8.0 fL Normal 6.3-10.7 [facility] Comment on above: Performed By: #### C BC, BMP #### [facility] [address] [place] [address] [place] #### FRUC #### [facility] , Platelets [#/volume] in Bloo d by Automated countOrdered By: David Mcfarland on 08-28-2023 Platelets (Bld) [#/Vol] 387 10*3/uL Normal 150-450 [facility] Comment on above: Performed By: #### C BC, BMP #### [place] [address] [place] #### FRUC #### [facility] , Potassium [Moles/volume] in Serum or PlasmaOrdered By: David Mcfarland on 08-28-2023 Potassium [Moles/Vol] 4.2 mmol/L Normal 3.5-5.[address] [facility] Comment on above: Performed By: #### C BC, BMP #### [facility] [address] [place] [address] [place] #### FRUC #### [facility] , Protein Auto test strip (U) [Mass/Vol]Ordered By: David Mcfarland on 08-28-2023 Protein (U) [Mass/Vol] Negative Negative [facility] Serum or plasma anion gap de terminationOrdered By: David Mcfarland on 08-28-2023 Anion gap [Moles/Vol] 11.1 mmol/L Normal 6.0-15.0 [facility] Comment on above: Performed By: #### C BC, BMP #### [facility] [address] [place] [address] [place] #### FRUC #### [facility] , Sodium [Moles/volume] in Ser um or PlasmaOrdered By: David Mcfarland on 08-28-2023 Sodium [Moles/Vol] 140 mmol/L Normal 136-145 [facility] Comment on above: Performed By: #### C BC, BMP #### [facility] [address] [place] [address] #### FRUC #### [facility] , Specific gravity Auto test s trip (U) [Rel density]Ordered By: David Mcfarland on 08-28-2023 Specific gravity (U) [Rel density] 1.020 1.001-1.03 0 [facility] Squamous epithelial cells de tection in urine sediment by light microscopyOrdered By: David Mcfarland on 08-28-2023 Epithelial cells.squamous LM Ql (Urine sed) 3-4 [HPF] 0-2 [facility] Urea nitrogen [Mass/volume] in Serum or PlasmaOrdered By: David Mcfarland on 08-28-2023 Urea nitrogen [Mass/Vol] 17 mg/dL Normal 7-25 [facility] Comment on above: Performed By: #### C BC, BMP #### [facility] [address] [place] [address] #### FRUC #### [facility] , Urine Cultureon 08-28-2023 Bacteria identified Cx Nom (U) 50,000 colonies/ml mixed bacterial skin contaminants 2 Days PERFORMED BY: [place] [address] PATHOLOGIST CLOTH DYE RANGE OPERATOR SUAD ARREAGA M.D. Normal [facility] Comment on above: Performed By: #### A DDONUAPLUS, CUU ####[facility] [address] [place] [address] Urine bacteria detection by automated methodOrdered By: David Mcfarland on 08-28-2023 Bacteria Auto Ql (U) None seen None Seen [facility] Urine clarity by refractomet ry automatedOrdered By: David Mcfarland on 08-28-2023 Clarity Refractometry automated (U) Clear Clear [facility] Urine culture routineOrdered By: David Mcfarland on 08-28-2023 Bacteria identified Cx Nom (U) 2 Days [facility] Urine glucose measurement by automated test strip (mass/volume)Ordered By: David Mcfarland on 08-28-2023 Glucose Auto test strip (U) [Mass/Vol] Normal mg/dL Normal [facility] Urine hemoglobin detection b y automated test stripOrdered By: David Mcfarland on 08-28-2023 Hemoglobin Auto test strip Ql (U) Negative Negative [facility] Urine leukocyte esterase det ection by automated test stripOrdered By: David Mcfarland on 08-28-2023 Leukocyte esterase Auto test strip Ql (U) 3+ Negative [facility] Urine pH measurement by auto mated test stripOrdered By: David Mcfarland on 08-28-2023 pH (U) 5.5 [pH] Normal 5.0-9.0 [facility] Comment on above: Order Comment: Name Collection Type:: Clean-Voided Midstream Performed By: #### A DDONUAPLUS, CUU #### [address] Urobilinogen Auto test strip (U) [Mass/Vol]Ordered By: David Mcfarland on 08-28-2023 Urobilinogen (U) [Mass/Vol] Normal mg/dL Normal [facility] XR hip RT min 2V(w/wo pelvis )*on 08-15-2023 XR hip RT min 2V(w/wo pelvis)* [facility] [place] [address] [place] [address] XRay Report Signed Patient: Nicol Smith MR#: [id number] 9 : 1960 Acct:[id number] Age/Sex: 63 / F ADM Date: 08/15/23 Loc: [facility] Room: Type: [facility] Attending Dr: David Mcfarland II, MD [...] PROCESS.. Impression dictated by: Stalin Matamoros Jr., DFabian08/15/2023 4:18 PM Dictation Location: [place] [address] Transcribed By: [facility] 08/15/231617 Dictated By: Stalin Matamoros Jr, DO 08/15/231616 Signed By: 08/15/231617 Normal [facility] Office Visiton 07-16-2023 Follow-up visit [id number] Nicol Smith 1960 F Date Provider Department Center 07/16/2023 120-MARJORIE, KIMBERLY [facility] Family History Problem Relation Age of Onset Diabetes Father Heart failure Father Diabetes Paternal Grandmother Diabetes Paternal Grandfather Family Status - Relation Status Age at Father Paternal Grandmother Paternal Grandfather Level of Service:23131 SC OFFICE/OUTPATIENT ESTABLISHED MOD MDM 30-39 MIN Normal [facility] TSHon 01-19-2023 TSH 5.502 uIU/mL Critically high 0.358-3.74 0 [facility] Comment on above: Performed By: #### T SH ####[facility] [address] [place] [address]Dr. Darrick Nash GTT 2 HRon 12-12-2022 Glucose [Mass/Vol] 117 mg/dL Critically high 74-[address] [facility] Comment on above: Performed By: #### G TT2 ####[facility] [address] [place] [address]Dr. Darrick Cao Glucose [Mass/Vol] 227 mg/dL Normal [facility] Comment on above: Performed By: #### G TT2 ####[facility] [address] [place] [address]Dr. Adryyakov Cao Glucose [Mass/Vol] 121 mg/dL Normal [facility] Comment on above: Performed By: #### G TT2 ####[facility] [address] [place] [address]Dr. Darrick Cao TSHon 12-12-2022 TSH 6.852 uIU/mL Critically high 0.358-3.74 0 [facility] Comment on above: Performed By: #### P OCGLUC #### [facility] [address] [place] [address] [address] Darrick Cao Outside Colonoscopyon 2022 Outside Colonoscopy [id number]:127 [facility] Reminderson 12-07-2022 Reminders - From: Yu Waters LPN To: N - Clinical; Sent: 12/07/2022 08:47:38 EST Show up: 11/08/2032 07:00:00 EST Subject: colonoscopy recall Due Date/Time: 12/06/2032 07:00:00 EST Reminder/Recall Patient is due for screening colonoscopy 12/06/2032. [facility] Consent for Procedure/Surger yon 11-09-2022 Consent for Procedure/Surgery [id number]:127 [facility] Consent for Procedure/Surgery [id number]:127 [facility] Facesheeton 11-09-2022 Facesheet [id number]:127 [facility] Ambulatory Visit Summaryon 0 11-08-2022 Ambulatory [...] Screening for malignant neoplasm of colon Normal [facility] MG MAMM SCREEN 3D BONNIE CADon 11-03-2022 MG MAMM SCREEN 3D BONNIE CAD Patient: NICOL SMITH Exam Date: 11/03/2022 : 1960 Gender:F Ordering : DR FRIEDA LOCKE . Admission #: [id number] Family : Order #: [id number] CLICK HERE TO VIEW EXAM RADIOLOGY REPORT [...] cancer at age 52. LOCATION: [facility] BREAST COMPOSITION: Scattered areas fibroglandular density. [...] Kelly MD on 11/03/2022 at 11:04 Normal [facility] XR DEXA BONE DENSITYon 11-03 XR [...] by: ARIELA SCHWAB Date: 2022-11-03 11:11 Normal [facility] Comprehensive Metabolic Pane yuli 10-30-2022 Urea nitrogen [Mass/Vol] 20 mg/dL [facility] Other Comprehensive Metabolic Panel [facility] Other Comprehensive Metabolic Panel >60 [facility] Other Comprehensive Metabolic Panel 4.2 [facility] Other Albumin [Mass/Vol] 3.7 g/dL Normal 3.4-5.0 [facility] Other Comment on above: Performed By: #### T SH, CMP, LIPID ####[facility] [address] [place] [id number]. Darrick Cao Albumin/Globulin [Mass ratio] 0.9 {ratio} Normal [facility] Other Comment on above: Performed By: #### T SH, CMP, LIPID ####[facility] [address] [place], [place] [address]Dr. Darrick Cao ALP [Catalytic activity/Vol] 112 U/L Normal 46-116 [facility] Other Comment on above: Performed By: #### T SH, CMP, LIPID ####[facility] [address] [place], [place] [address]Dr. Darrick Cao ALT [Catalytic activity/Vol] 34 U/L Normal 14-59 [facility] Other Comment on above: Performed By: #### T SH, CMP, LIPID ####[facility] [address] [place] [id number]. Darrick Cao AST [Catalytic activity/Vol] 17 U/L Normal 15-37 [facility] [place] Other Comment on above: Performed By: #### T SH, CMP, LIPID ####[facility] [address] [place], [place] [address]Dr. Darrick Cao Bilirubin [Mass/Vol] 0.4 mg/dL Normal 0.2-1.0 [facility] [place] Other Comment on above: Performed By: #### T SH, CMP, LIPID ####[facility] [address] [place], [place] [address]Dr. Darrick Cao Calcium [Mass/Vol] 9.2 mg/dL Normal 8.5-10.1 [facility] [place] Other Comment on above: Performed By: #### T SH, CMP, LIPID ####[facility] [address] [place] [address]Dr. Darrick Cao Chloride [Moles/Vol] 105 mmol/L Normal 98-107 [facility] [place] Other Comment on above: Performed By: #### T SH, CMP, LIPID ####[facility] [address] [place] [address]Dr. Darrick Cao CO2 [Moles/Vol] 27.0 mmol/L Normal 21.0-32.0 [facility] [place] Other Comment on above: Performed By: #### T SH, CMP, LIPID ####[facility] [address] [place] [address]Dr. Darrick Cao Creatinine [Mass/Vol] 0.86 mg/dL Normal 0.55-1.02 [facility] [place] Other Comment on above: Performed By: #### T SH, CMP, LIPID ####[facility] [address] [place] [address]Dr. Darrick Cao Glucose [Mass/Vol] 114 mg/dL Critically high 74-106 [facility] [place] Other Comment on above: Performed By: #### T SH, CMP, LIPID ####[facility] [address] [place] [address]Dr. Darrick Cao Potassium [Moles/Vol] 3.9 mmol/L Normal 3.5-5.1 [facility] [place] Other Comment on above: Performed By: #### T SH, CMP, LIPID ####[facility] [address] [place] [address]Dr. Darrick Cao Protein [Mass/Vol] 7.9 g/dL Normal 6.4-8.2 [facility] [place] Other Comment on above: Performed By: #### T SH, CMP, LIPID ####[facility] [address] [place], [place] [address]Yc. Darrick Cao Sodium [Moles/Vol] 143 mmol/L Normal 136-145 [employer] Other Comment on above: Performed By: #### T SH, CMP, LIPID ####[facility] [address] [place], [place] [address]We. Darrick Cao FREE T4on 10-30-2022 Free T4 [Mass/Vol] 0.77 ng/dL Normal 0.76-1.46 [facility] Comment on above: Performed By: #### F T4 ####[facility] [address] [place] [id number]. Darrick Cao LIPID PROFILEon 10-30-2022 CHOL-HDL RATIO NORM SEE BELOW Normal [facility] Comment on above: Result Comment: 3.3 - 4.4 LOW RISK 4.4 - 7.1 AVERAGE RISK 7.1 - 11.0 MODERATE RISK >11.0 HIGH RISK Performed By: #### T SH, CMP, LIPID ####[facility] [address] [place], [place] [address]Ml. Darrick Cao Cholesterol in LDL [Mass/Vol] 84.6 mg/dL Normal [facility] Comment on above: Performed By: #### T SH, CMP, LIPID ####[facility] [address] [place], [place] [address]Fg. Darrick Cao HDL NORMAL > or = 60 mg/dl - LO W CARDIOVASCULAR RISK <40 mg/dl - HIGH CARDIOVASCULAR RISK Normal [facility] Comment on above: Performed By: #### T SH, CMP, LIPID ####[facility] [address] [place], [place] [address]Ah. Darrick Cao LDL CALC NORMAL SEE BELOW Normal [facility] Comment on above: Result Comment: <100 mg/dl OPTIMAL 100 - 129 mg/dl NEAR OR ABOVE OPTIMAL 130 - 159 mg/dl BORDERLINE HIGH 160 - 189 mg/dl HIGH >190 mg/dl VERY HIGH Performed By: #### T SH, CMP, LIPID ####[facility] [address] [place], [place] [address]Oy. Darrick Cao Triglyceride [Mass/Vol] 222 mg/dL Critically high <=150 [facility] Comment on above: Performed By: #### T SH, CMP, LIPID ####[facility] [address] [place], [place] [address]Do. Darrick Nash VLDL CALC 44.4 mg/dL Normal [facility] Comment on above: Performed By: #### T SH, CMP, LIPID ####[facility] [address] [place], [place] [address]Gh. Darrick Cao Lipid Panelon 10-30-2022 Cholesterol in LDL Elph Qn 84.6 Quitbit [facility] [place] Other Lipid Panel 222 [employer] Other Lipid Panel 44.4 [employer] Other Cholesterol [Mass/Vol] 185 mg/dL Normal <=200 [employer] Other Comment on above: Performed By: #### T SH, CMP, LIPID ####[facility] [address] [place] [id number]. Darrick Cao Cholesterol in HDL [Mass/Vol] 56 mg/dL Normal 40-60 [employer] Other Comment on above: Performed By: #### T SH, CMP, LIPID ####[facility] [address] [place] [id number]. Darrick Cao Cholesterol.total/Cho lesterol in HDL [Mass ratio] 3.3 {ratio} Normal [employer] Other Comment on above: Performed By: #### T SH, CMP, LIPID ####[facility] [address] [place] [id number]. Darrick Cao PROF 14(COMP METB)on 023 Anion gap [Moles/Vol] 14.9 mmol/L Normal [facility] Comment on above: Performed By: #### T SH, CMP, LIPID ####[facility] [address] [place] [address]Dr. Darrick Cao EGFR-AF PRYDEINIG >60 Normal >=60 The [facility] Comment on above: Performed By: #### T JASON CMP, LIPID ####[facility] [address] [place] [id number]. Darrick Cao EGFR-NON AF PRYDEINIG >60 Normal >=60 [facility] [place] [facility] Comment on above: Performed By: #### T JASON CMP, LIPID ####[facility] [address] [place] [id number]. Darrick Cao Globulin (S) [Mass/Vol] 4.2 g/dL Normal [facility] [place] [facility] Comment on above: Performed By: #### T JASON CMP, LIPID ####[facility] [address] [place] [address]Dr. Darrick Cao Urea nitrogen [Mass/Vol] 20.0 mg/dL Critically high 7.0-18.0 [facility] [place] [facility] Comment on above: Performed By: #### T JASON CMP, LIPID ####[facility] [address] [place] [address]Dr. Darrick Cao Urea nitrogen/Creatinine [Mass ratio] 23.3 mg/mg Normal [facility] [place] [facility] Comment on above: Performed By: #### T JASON CMP, LIPID ####[facility] [address] [place] [id number]. Darrick Cao TSHon 10-30-2022 TSH 6.415 uIU/mL Critically high 0.358-3.74 0 [facility] [place] [facility] Comment on above: Performed By: #### T JASON, CMP, LIPID ####[facility] [address] [place] [id number]. Darrick Cao Thyroid Stim Hormone w/Rflxo n 10-30-2022 Thyroid Stim Hormone w/Rflx 6.415 [employer] Other VITAMIN B12on 10-30-2022 Cobalamin (Vitamin B12) [Mass/Vol] 664.0 pg/mL Normal 193.0-986. 0 [facility] [place] [facility] Comment on above: Performed By: #### V ITB12 #### [facility] [address] [place] [address] [address] Darrick Cao Vitamin B12on 10-30-2022 Cobalamin (Vitamin B12) [Mass/Vol] 664 pg/mL [employer] Other Automated erythrocytes count in urine sediment (number/area)Ordered By: Waqas Pierce on 10-23-2022 RBC Auto (Urine sed) [#/Area] 0-1 [HPF] 0-4 [facility] Automated leukocytes count i n urine sediment (number/area)Ordered By: Waqas Pierce on 10-23-2022 WBC Auto (Urine sed) [#/Area] 10-19 [HPF] 0-4 [facility] Bilirubin Test strip Ql (U)O rdered By: Waqas Pierce on 10-23-2022 Bilirubin Ql (U) Negative Negative [facility] Color Auto (U)Ordered By: Shay Pierce on 10-23-2022 Color (U) Yellow Yellow [facility] Ketones Auto test strip (U) [Mass/Vol]Ordered By: Waqas Pierce on 10-23-2022 Ketones (U) [Mass/Vol] Negative Negative [facility] Laboratory - UrinalysisOrder ed By: Waqas Pierce on 10-23-2022 Hyaline casts LM Ql (Urine sed) 0-8 [LPF] 0-8 [facility] Nitrite Test strip Ql (U)Ord ered By: Waqas Pierce on 10-23-2022 Nitrite Ql (U) Negative Negative [facility] Protein Auto test strip (U) [Mass/Vol]Ordered By: Waqas Pierce on 10-23-2022 Protein (U) [Mass/Vol] Negative Negative [facility] Specific gravity Auto test s trip (U) [Rel density]Ordered By: Waqas Pierce on 10-23-2022 Specific gravity (U) [Rel density] 1.016 1.001-1.03 0 [facility] Squamous epithelial cells de tection in urine sediment by light microscopyOrdered By: Waqas Pierce on 10-23-2022 Epithelial cells.squamous LM Ql (Urine sed) 5-9 [HPF] 0-2 [facility] Urine Cultureon 10-23-2022 Bacteria identified Cx Nom (U) [employer] Other Urine bacteria detection by automated methodOrdered By: Waqas Pierce on 10-23-2022 Bacteria Auto Ql (U) None seen None Seen [facility] Urine clarity by refractomet ry automatedOrdered By: Waqas Pierce on 10-23-2022 Clarity Refractometry automated (U) Clear Clear [facility] Urine glucose measurement by automated test strip (mass/volume)Ordered By: Waqas Pierce on 10-23-2022 Glucose Auto test strip (U) [Mass/Vol] Normal mg/dL Normal [facility] Urine hemoglobin detection b y automated test stripOrdered By: Waqas Pierce on 10-23-2022 Hemoglobin Auto test strip Ql (U) Negative Negative [facility] Urine leukocyte esterase det ection by automated test stripOrdered By: Waqas Pierce on 10-23-2022 Leukocyte esterase Auto test strip Ql (U) 3+ Negative [facility] Urobilinogen Auto test strip (U) [Mass/Vol]Ordered By: Waqas Pierce on 10-23-2022 Urobilinogen (U) [Mass/Vol] Normal mg/dL Normal [facility] pH Auto test strip (U)Ordere d By: Waqas Pierce on 10-23-2022 pH (U) 6.0 [pH] 5.0-9.0 [facility] A1C HEMOGLOBINon 10-13-2022 HbA1c (Bld) [Mass fraction] 5.9 % [employer] Other HbA1c (Bld) [Mass fraction]o n 10-13-2022 A1C [facility]OGLOBIN [facility] Other XR FOOT LT MIN 3 VIEWSon [...] by: ALEX RYAN Date: 2022-09-20 16:40 Normal [facility] Office Visiton 09-06-2022 Follow-up visit [id number] Nicol Smith 1960 F Date Provider Department Center 09/06/2022 KIMBERLY BAKER [facility] Family History Problem Relation Age of Onset Diabetes Father Heart failure Father Diabetes Paternal Grandmother Diabetes Paternal Grandfather Family Status - Relation Status Age at Father Paternal Grandmother Paternal Grandfather Level of Service:78003 SC OFFICE/OUTPATIENT ESTABLISHED LOW MDM 20-29 MIN Normal [facility] XR LSPINE 2_3 VIEWSon 2021 XR LSPINE 2_3 VIEWS EXAMINATION: XR LSPI NE 2_3 VIEWS HISTORY: Low back pain COMPARISON: 09/26/2019 FINDINGS: BONES: Mild dextrocurvature. Moderate to severe spondylosis and facet osteoarthropathy DISC SPACES: Multilevel disc space narrowing most significant at L5-S1 PARASPINOUS: Negative. No paraspinous abnormality is seen. OTHER: Severe right hip osteoarthropathy with gbpe-me-zykz articulation. Left hip arthroplasty IMPRESSION: Moderate to severe degenerative changes Electronically authenticated by: SHAWNEE KELLY Date: 2022-08-20 11:47 Normal [facility] PAP ACOG PANEL 2: 30 to 65on 06-13-2022 . . Normal [facility] Comment on above: Result Comment: Perf ormed at: WB Performed By: #### 4 [id number] ####[facility] [address] [place] [address]DrMiguel Cao Age Gdln ACOG Testing 30-65 Normal [facility] Comment on above: Performed By: #### 4 [id number] ####[facility] [address] [place] [id number] Cao DIAGNOSIS: Comment Normal [facility] Comment on above: Result Comment: NEGA TIVE FOR INTRAEPITHELIAL LESION OR MALIGNANCY. THIS SPECIMEN WAS RESCREENED PART OF OUR ALFALFA DEHYDRATOR OPERATOR PROGRAM. Performed at: WB Performed By: #### 4 [id number] ####[facility] [address] [place], [place] [address]DrMiguel Cao HPV Aptima Negative Normal Negative [facility] Comment on above: Result Comment: This nucleic acid amplification test detects fourteen high-risk HPV types (16,18,31,33,35,39,45,51,52,56,58,59,66,68) without differentiation. Performed at: =G Performed By: #### 4 [id number] ####[facility] [address] [place], [place] [address]DrMiguel Cao Methodology: Comment Normal [facility] Comment on above: Result Comment: This liquid based ThinPrep(R) pap test was screened with the use of an image guided system. Performed at: WB Performed By: #### 4 [id number] ####[facility] [address] [place], [place] [address]DrMiguel Cao Note: Comment Normal [facility] Comment on above: Result Comment: The Pap smear is a screening test designed to aid in the detection of premalignant and malignant conditions of the uterine cervix. It is not a diagnostic procedure and should not be used as the sole means of detecting cervical cancer. Both false-positive and false-negative reports do occur. . Performed at: WB Performed By: #### 4 [id number] ####[facility] [address] [place], [place] [address]DrMiguel Cao Performed by: Comment Normal [facility] Comment on above: Result Comment: Solange Ann, Hedis Manager (ASCP) Performed at: WB Performed By: #### 4 [id number] ####[facility] [address] [place], [place] [address]DrMiguel Cao QC reviewed by: Comment Normal [facility] Comment on above: Result Comment: Navi Rush, Supervisory Hedis Manager (ASCP) Performed at: WB Performed By: #### 4 [id number] ####[facility] [address] [place], [place] [address]Dr. Darrick Cao Specimen adequacy: Comment Normal [facility] Comment on above: Result Comment: Sati sfactory for evaluation. Endocervical and/or squamous metaplastic cells (endocervical component) are present. Performed at: WB Performed By: #### 4 [id number] ####[facility] [address] [place] [id number]. Darrick Cao US PELVIS AND TRANSVAGon US [...] SCHWAB Date: 2022-06-13 14:50 Normal [facility] ACID FAST SMEAR AND CXon Acid Fast Culture Negative Normal [facility] Comment on above: Result Comment: No a liliya fast bacilli isolated after 6 weeks. Performed By: #### A FB ####[facility] [address] [place] [address]Dr. Darrick Cao Acid Fast Smear Negative Normal [facility] Comment on above: Performed By: #### A FB ####[facility] [address] [place] [address]DrMiguel Cao [employer] Specimen Processing Tissue Grinding Normal [facility] Comment on above: Performed By: #### A FB ####[facility] [address] [place] [id number]. Darrick Cao FUNGAL CULTUREon 05-23-2022 Fungus (Mycology) Culture Final report Normal [facility] Comment on above: Performed By: #### C XFUN ####[facility] [address] [place] [address]Dr. Darrick Cao Fungus Stain Final report Normal [facility] Comment on above: Performed By: #### C XFUN ####[facility] [address] [place] [address]Dr. Darrick Cao Result 1 Comment Normal [facility] Comment on above: Result Comment: MAYE/ Calcofluor preparation: no fungus observed. Performed By: #### C XFUN ####[facility] [address] [place] [address]Dr. Darrick Cao Result Comment: No y east or mold isolated after 4 weeks. WOUND CULTUREon 04-28-2022 Bacteria identified Aer cx Nom (Unsp spec) Final report Normal [facility] Comment on above: Performed By: #### C XWND #### [facility] [address] [place] [address] [address] Darrick Cao Result 1 Comment Normal [facility] Comment on above: Result Comment: No g rowth in 36 - 48 hours. Performed By: #### C XWND #### [facility] [address] [place] [address] [address] Darrick Cao CULTURE WOUNDon 04-26-2022 CULTURE [...] S F Vancomycin 1 S F Normal [facility] Comment on above: Performed By: #### W OUNDCX ####[facility] [address] [place] [address]Dr. Darrick Cao CBC AUTO DIFFon 04-25-2022 BASO # 0.0 103/ul Normal 0.0-0.1 [facility] Comment on above: Performed By: #### C XWND #### [facility] [address] [place] [address] Dr. Darrick Cao Basophils/100 WBC (Bld) 0.5 % Normal 0.2-2.0 [facility] Comment on above: Performed By: #### C XWND #### [facility] [address] [place] [address] Dr. Darrick Cao EO # 0.1 103/ul Normal 0.0-0.7 [facility] Comment on above: Performed By: #### C XWND #### [facility] [address] [place] [address] Dr. Darrick Cao Eosinophils/100 WBC (Bld) 1.1 % Normal 0.9-7.0 [facility] Comment on above: Performed By: #### C XWND #### [facility] [address] [place] [address] Dr. Darrick Cao Erythrocyte distribution width (RBC) [Ratio] 15.8 % Critically high 11.0-15.0 [facility] Comment on above: Performed By: #### C XWND #### [facility] [address] [place] [address] Dr. Darrick Cao Hematocrit (Bld) [Volume fraction] 31.7 % Critically low 36.0-48.0 [facility] Comment on above: Performed By: #### C XWND #### [facility] [address] [place] [address] Dr. Darrick Cao Hemoglobin (Bld) [Mass/Vol] 10.1 g/dL Critically low 12.0-16.0 [facility] Comment on above: Performed By: #### C XWND #### [facility] [address] [place] [address] Dr. Darrick Cao IG # 0.02 10e3/ul Normal 0.00-0.03 [facility] Comment on above: Performed By: #### C XWND #### [facility] [address] [place] [address] Dr. Darrick Cao IG % 0.3 % Normal 0.0-0.5 [facility] Comment on above: Performed By: #### C XWND #### [facility] [address] [place] [address] Dr. Darrick Cao LYMPH # 1.8 103/ul Normal 1.2-3.8 [facility] Comment on above: Performed By: #### C XWND #### [facility] [address] [place] [address] Dr. Darrick Cao Lymphocytes/100 WBC (Bld) 24.3 % Normal 20.5-60.0 [facility] Comment on above: Performed By: #### C XWND #### [facility] [address] [place] [address] Dr. Darrick Cao MANUAL DIFF REQ NO Normal [facility] Comment on above: Performed By: #### C XWND #### [facility] [address] [place] [address] Dr. Darrick Cao MCH (RBC) [Entitic mass] 28.0 pg Normal 26.7-34.0 [facility] Comment on above: Performed By: #### C XWND #### [facility] [address] [place] [address] Dr. Darrick Cao MCHC (RBC) [Mass/Vol] 31.9 g/dL Normal 29.9-35.2 [facility] Comment on above: Performed By: #### C XWND #### [facility] [address] [place] [address] Dr. Darrick Cao MCV (RBC) [Entitic vol] 87.8 fL Normal 81.0-99.0 [facility] Comment on above: Performed By: #### C XWND #### [facility] [address] [place] [address] Dr. Darrick Cao MONO # 0.5 103/ul Normal 0.3-0.8 [facility] Comment on above: Performed By: #### C XWND #### [facility] [address] [place] [address] Dr. Darrick Cao Monocytes/100 WBC (Bld) 7.2 % Normal 1.7-12.0 [facility] Comment on above: Performed By: #### C XWND #### [facility] [address] [place] [address] [address] Darrick Cao NEUT # 5.0 103/ul Normal 1.4-6.5 [facility] Comment on above: Performed By: #### C XWND #### [facility] [address] [place] [address] [address] Darrick Cao Neutrophils/100 WBC (Bld) 66.6 % Normal 43.0-75.0 [facility] Comment on above: Performed By: #### C XWND #### [facility] [address] [place] [address] Dr. Darrick Cao Platelet mean volume (Bld) [Entitic vol] 9.6 fL Normal 9.5-13.5 [facility] Comment on above: Performed By: #### C XWND #### [facility] [address] [place] [address] Dr. Darrick Cao PLT 295 103/ul Normal 150-450 [facility] Comment on above: Performed By: #### C XWND #### [facility] [address] [place] [address] Dr. Darrick Cao RBC 3.61 106/ul Critically low 4.20-5.40 [facility] Comment on above: Performed By: #### C XWND #### [facility] [address] [place] [address] Dr. Darrick Cao WBC 7.5 103/ul Normal 4.0-11.0 [facility] Comment on above: Performed By: #### C XWND #### [facility] [id number] Darrick Cao ER URINE PROFILEon 2 Bilirubin Ql (U) Negative Normal NEGATIVE [facility] Comment on above: Performed By: #### U MICRO, ERUR ####[facility] [address] [place] [address]Dr. Darrick Cao Clarity (U) CLEAR Normal CLEAR [facility] Comment on above: Performed By: #### U MICRO, ERUR ####[facility] [address] [place] [address]Dr. Darrick Cao Color (U) LT. YELLOW Normal YELLOW [facility] Comment on above: Performed By: #### U MICRO, ERUR ####[facility] [address] [place] [address]Dr. Darrick Cao ERUAHD A micrscopic examina tion will be performed if indicated. Normal [facility] Comment on above: Performed By: #### U MICRO, ERUR ####[facility] [address] [place] [address]Dr. Darrick Cao Glucose Ql (U) Negative Normal NEGATIVE [facility] Comment on above: Performed By: #### U MICRO, ERUR ####[facility] [address] [place] [address]Dr. Darrick Cao Hemoglobin Ql (U) SMALL Abnormal NEGATIVE [facility] Comment on above: Performed By: #### U MICRO, ERUR ####[facility] [address] [place], [place] [address]Dr. Darrick Cao Ketones Ql (U) Negative Normal NEGATIVE [facility] Comment on above: Performed By: #### U MICRO, ERUR ####[facility] [address] [place] [address]Dr. Darrick Cao LEUKOCYTES Negative Normal NEGATIVE [facility] Comment on above: Performed By: #### U MICRO, ERUR ####[facility] [address] [place] [address]Dr. Darrick Cao Nitrite Ql (U) Negative Normal NEGATIVE [facility] Comment on above: Performed By: #### U MICRO, ERUR ####[facility] [address] [place], [place] [address]Dr. Darrick Cao pH (U) 6.0 [pH] Normal 5-9 [facility] Comment on above: Performed By: #### U MICRO, ERUR ####[facility] [address] [place], [place] [address]Dr. Darrick Cao SPEC GRAVITY 1.020 Normal 1.005-<=1. 025 [facility] Comment on above: Performed By: #### U MICRO, ERUR ####[facility] [address] [place] [address]DrMiguel Cao UA PROTEIN Negative Normal NEGATIVE/ TRACE [facility] Comment on above: Performed By: #### U MICRO, ERUR ####[facility] [address] [place] [address]Dr. Darrick Cao UR MICRO IND INDICATED Normal [facility] Comment on above: Performed By: #### U MICRO, ERUR ####[facility] [address] [place] [address]Dr. Darrick Cao Urobilinogen Qn (U) 0.2 {Larissa'U}/dL Normal 0.2 - 1. 0 [facility] Comment on above: Performed By: #### U MICRO, ERUR ####[facility] [address] [place] [address]DrMiguel Cao POINT OF CARE GLUCOSEon 04-01 Glucose [Mass/Vol] 118 mg/dL Critically high 74-106 [facility] Comment on above: Performed By: #### P OCGLUC ####[facility] [address] [place] [address]Dr. Darrick Cao PROF 14(COMP METB)on 022 Albumin [Mass/Vol] 2.9 g/dL Critically low 3.4-5.0 [facility] Comment on above: Performed By: #### P OCGLUC #### [facility] [address] [place] [address] [address] Darrick Cao Albumin/Globulin [Mass ratio] 0.8 {ratio} Normal [facility] Comment on above: Performed By: #### P OCGLUC #### [facility] [address] [place] [address] [address] Darrick Cao ALP [Catalytic activity/Vol] 113 U/L Normal 46-116 [facility] Comment on above: Performed By: #### P OCGLUC #### [facility] [address] [place] [address] [address] Darrick Cao ALT [Catalytic activity/Vol] 56 U/L Normal 14-59 [facility] Comment on above: Performed By: #### P OCGLUC #### [facility] [address] [place] [address] [address] Darrick Cao Anion gap [Moles/Vol] 8.8 mmol/L Normal [facility] Comment on above: Performed By: #### P OCGLUC #### [facility] [address] [place] [address] [address] Darrick Cao AST [Catalytic activity/Vol] 30 U/L Normal 15-37 [facility] Comment on above: Performed By: #### P OCGLUC #### [facility] [address] [place] [address] [address] Darrick Cao Bilirubin [Mass/Vol] 0.3 mg/dL Normal 0.2-1.0 [facility] Comment on above: Performed By: #### P OCGLUC #### [facility] [address] [place] [address] Dr. Darrick Cao Calcium [Mass/Vol] 8.6 mg/dL Normal 8.5-10.1 [facility] Comment on above: Performed By: #### P OCGLUC #### [facility] [address] [place] [address] Dr. Darrick Cao Chloride [Moles/Vol] 105 mmol/L Normal 98-107 [facility] Comment on above: Performed By: #### P OCGLUC #### [facility] [address] [address] [address] Darrick Cao CO2 [Moles/Vol] 30.4 mmol/L Normal 21.0-32.0 The [facility] Comment on above: Performed By: #### P OCGLUC #### [facility] [address] [address] [address] Darrick Cao Creatinine [Mass/Vol] 0.82 mg/dL Normal 0.55-1.02 [facility] Comment on above: Performed By: #### P OCGLUC #### [facility] [address] [address] [address] Darrick Cao EGFR-AF PRYDEINIG >60 Normal >=60 The [facility] Comment on above: Performed By: #### P OCGLUC #### [facility] [address] [address] [address] Darrick Cao EGFR-NON AF PRYDEINIG >60 Normal >=60 [facility] Comment on above: Performed By: #### P OCGLUC #### [facility] [address] [address] [address] Darrick Cao Globulin (S) [Mass/Vol] 3.6 g/dL Normal [facility] Comment on above: Performed By: #### P OCGLUC #### [facility] [address] [address] [address] Darrick Cao Glucose [Mass/Vol] 103 mg/dL Normal 74-106 [facility] Comment on above: Performed By: #### P OCGLUC #### [facility] [address] [address] [address] Darrick Cao Potassium [Moles/Vol] 4.2 mmol/L Normal 3.5-5.1 [facility] Comment on above: Performed By: #### P OCGLUC #### [facility] [address] [address] [address] Darrick Cao Protein [Mass/Vol] 6.5 g/dL Normal 6.4-8.2 [facility] Comment on above: Performed By: #### P OCGLUC #### [facility] [address] [address] [address] Darrikc Cao Sodium [Moles/Vol] 140 mmol/L Normal 136-145 [facility] Comment on above: Performed By: #### P OCGLUC #### [facility] [address] [address] [address] Darrick Cao Urea nitrogen [Mass/Vol] 11.0 mg/dL Normal 7.0-18.0 [facility] Comment on above: Performed By: #### P OCGLUC #### [facility] [address] [address] [address] Darrick Cao Urea nitrogen/Creatinine [Mass ratio] 13.4 mg/mg Normal [facility] Comment on above: Performed By: #### P OCGLUC #### [facility] [address] [address] [address] Darrick Cao URINE MICROSCOPIC ONLYon BACTERIA NONE SEEN Normal NONE SEEN [facility] Comment on above: Performed By: #### U MICRO, ERUR ####[facility] [id number] [address]Dr. Darrick Cao Bacteria identified Cx Nom (U) NOT INDICATED Normal [facility] Comment on above: Performed By: #### U MICRO, ERUR ####[facility] [id number] [address]Dr. Darrick Cao CAST NONE SEEN Normal NONE SEEN [facility] Comment on above: Performed By: #### U MICRO, ERUR ####[facility] [id number] [address]Dr. Darrick Cao Crystals LM Nom (Urine sed) NONE SEEN Normal NONE SEEN [facility] Comment on above: Performed By: #### U MICRO, ERUR ####[facility] [id number] [address]Dr. Darrick Cao Epithelial cells LM Ql (Urine sed) RARE Normal NONE SEEN /RARE [facility] Comment on above: Performed By: #### U MICRO, ERUR ####[facility] [id number] [address]Dr. Darrick Cao MUCOUS NONE SEEN Normal NONE SEEN [facility] Comment on above: Performed By: #### U MICRO, ERUR ####[facility] [id number] [address]Dr. Darrick Cao RBC 5-10 Abnormal 0-2 [facility] Comment on above: Performed By: #### U MICRO, ERUR ####[facility] [id number] [address]Dr. Darrick Cao WBC 0-2 Abnormal NONE SEEN [facility] Comment on above: Performed By: #### U MICRO, ERUR ####[facility] [id number] [place], [place] [address]Dr. Darrick Cao XR CHEST 2 Von 04-25-2022 [...] FOWLER Date: 2022-04-25 20:07 Normal [facility] CBC AUTO DIFFon 04-24-2022 BASO # 0.1 103/ul Normal 0.0-0.1 [facility] Comment on above: Performed By: #### P OCGLUC #### [facility] [address] [place] [address] Dr. Darrick Cao Basophils/100 WBC (Bld) 0.8 % Normal 0.2-2.0 [facility] Comment on above: Performed By: #### P OCGLUC #### [facility] [address] [address] [address] Darrick Cao EO # 0.1 103/ul Normal 0.0-0.7 [facility] Comment on above: Performed By: #### P OCGLUC #### [facility] [address] [place] [address] Dr. Darrick Cao Eosinophils/100 WBC (Bld) 1.9 % Normal 0.9-7.0 [facility] Comment on above: Performed By: #### P OCGLUC #### [facility] [address] [place] [address] Dr. Darrick Cao Erythrocyte distribution width (RBC) [Ratio] 15.6 % Critically high 11.0-15.0 [facility] Comment on above: Performed By: #### P OCGLUC #### [facility] [address] [place] [address] Dr. Darrick Cao Hematocrit (Bld) [Volume fraction] 35.4 % Critically low 36.0-48.0 [facility] Comment on above: Performed By: #### P OCGLUC #### [facility] [address] [address] [address] Darrick Cao Hemoglobin (Bld) [Mass/Vol] 11.4 g/dL Critically low 12.0-16.0 [facility] Comment on above: Performed By: #### P OCGLUC #### [facility] [address] [address] [address] Darrick Cao IG # 0.02 10e3/ul Normal 0.00-0.03 [facility] Comment on above: Performed By: #### P OCGLUC #### [facility] [address] [address] [address] Darrick Cao IG % 0.3 % Normal 0.0-0.5 [facility] Comment on above: Performed By: #### P OCGLUC #### [facility] [address] [place] [address] Dr. Darrick Cao LYMPH # 1.9 103/ul Normal 1.2-3.8 [facility] Comment on above: Performed By: #### P OCGLUC #### [facility] [address] [place] [address] Dr. Darrick Cao Lymphocytes/100 WBC (Bld) 30.2 % Normal 20.5-60.0 [facility] Comment on above: Performed By: #### P OCGLUC #### [facility] [address] [place] [address] Dr. Darrick Cao MANUAL DIFF REQ NO Normal [facility] Comment on above: Performed By: #### P OCGLUC #### [facility] [address] [place] [address] Dr. Darrick Cao MCH (RBC) [Entitic mass] 27.9 pg Normal 26.7-34.0 [facility] Comment on above: Performed By: #### P OCGLUC #### [facility] [address] [place] [address] Dr. Darrick Cao MCHC (RBC) [Mass/Vol] 32.2 g/dL Normal 29.9-35.2 [facility] Comment on above: Performed By: #### P OCGLUC #### [facility] [address] [address] [address] Darrick Cao MCV (RBC) [Entitic vol] 86.6 fL Normal 81.0-99.0 [facility] Comment on above: Performed By: #### P OCGLUC #### [facility] [address] [address] [address] Darrick Cao MONO # 0.6 103/ul Normal 0.3-0.8 [facility] Comment on above: Performed By: #### P OCGLUC #### [facility] [address] [address] [address] Darrick Cao Monocytes/100 WBC (Bld) 9.0 % Normal 1.7-12.0 [facility] Comment on above: Performed By: #### P OCGLUC #### [facility] [address] [place] [address] Dr. Darrick Cao NEUT # 3.7 103/ul Normal 1.4-6.5 [facility] Comment on above: Performed By: #### P OCGLUC #### [facility] [address] [place] [address] Dr. Darrick Cao Neutrophils/100 WBC (Bld) 57.8 % Normal 43.0-75.0 [facility] Comment on above: Performed By: #### P OCGLUC #### [facility] [address] [place] [address] Dr. Darrick Cao Platelet mean volume (Bld) [Entitic vol] 9.5 fL Normal 9.5-13.5 [facility] Comment on above: Performed By: #### P OCGLUC #### [facility] [address] [place] [address] Dr. Darrick Cao PLT 256 103/ul Normal 150-450 [facility] Comment on above: Performed By: #### P OCGLUC #### [facility] [address] [address] [address] Darrick Cao RBC 4.09 106/ul Critically low 4.20-5.40 [facility] Comment on above: Performed By: #### P OCGLUC #### [facility] [address] [address] [address] Darrick Cao WBC 6.3 103/ul Normal 4.0-11.0 [facility] Comment on above: Performed By: #### P OCGLUC #### [facility] [address] [address] [address] Darrick Cao GRAM STAINon 04-24-2022 COMMENTS NO ORGANISMS OBSERVED Normal [facility] Comment on above: Performed By: #### C XWND #### [facility] [address] [address] [address] Darrick Cao DIPHTHEROIDS Normal [facility] Comment on above: Performed By: #### C XWND #### [facility] [address] [address] [address] Darrick Cao EPITHELIALS Normal [facility] Comment on above: Performed By: #### C XWND #### [facility] [address] [address] [address] Darrick Cao FUNGAL ELEMENTS Normal [facility] Comment on above: Performed By: #### C XWND #### [facility] [address] [address] [address] Darrick SOLOMON NEG BACILLI Normal [facility] Comment on above: Performed By: #### C XWND #### [facility] [address] [address] [address] Darrick SOLOMON NEG DIPPLOCOCCI Normal [facility] Comment on above: Performed By: #### C XWND #### [facility] [address] [address] [address] Darrick SOLOMON POS BACILLI Normal [facility] Comment on above: Performed By: #### C XWND #### [facility] [address] [place] [address] Dr. Darrick Cao GRAM POSITIVE COCCI Normal [facility] Comment on above: Performed By: #### C XWND #### [facility] [address] [address] [address] Darrick Cao GRAM STAIN SOURCE Post irrigation left foot Normal [facility] Comment on above: Performed By: #### C XWND #### [facility] [address] [address] [address] Darrick Cao GS_DIPTH Normal [facility] Comment on above: Performed By: #### C XWND #### [facility] [address] [address] [address] Darrick Cao WBC NONE SEEN [facility] Comment on above: Performed By: #### C XWND #### [facility] [address] [address] [address] Darrick Cao POINT OF CARE GLUCOSEon 04-01 Glucose [Mass/Vol] 132 mg/dL Critically high 74-106 [facility] Comment on above: Performed By: #### P OCGLUC #### [facility] [address] [address] [address] Darrick Cao Glucose [Mass/Vol] 105 mg/dL Normal 74-106 [facility] Comment on above: Performed By: #### P OCGLUC ####[facility] [id number] [address]Dr. Darrick Cao PROF 14(COMP METB)on 022 Albumin [Mass/Vol] 2.9 g/dL Critically low 3.4-5.0 [facility] Comment on above: Performed By: #### P OCGLUC #### [facility] [address] [address] [address] Darrick Cao Albumin/Globulin [Mass ratio] 0.8 {ratio} [facility] Comment on above: Performed By: #### P OCGLUC #### [facility] [address] [address] [address] Darrick Cao ALP [Catalytic activity/Vol] 122 U/L Critically high 46-116 [facility] Comment on above: Performed By: #### P OCGLUC #### [facility] [address] [address] [address] Darrick Cao ALT [Catalytic activity/Vol] 65 U/L Critically high 14-59 [facility] Comment on above: Performed By: #### P OCGLUC #### [facility] [address] [address] [address] Darrick Cao Anion gap [Moles/Vol] 12.2 mmol/L Normal [facility] Comment on above: Performed By: #### P OCGLUC #### [facility] [address] [address] [address] Darrick Cao AST [Catalytic activity/Vol] 28 U/L Normal 15-37 [facility] Comment on above: Performed By: #### P OCGLUC #### [facility] [address] [address] [address] Darrick Cao Bilirubin [Mass/Vol] 0.3 mg/dL Normal 0.2-1.0 [facility] Comment on above: Performed By: #### P OCGLUC #### [facility] [address] [address] [address] Darrick Cao Calcium [Mass/Vol] 8.5 mg/dL Normal 8.5-10.1 [facility] Comment on above: Performed By: #### P OCGLUC #### [facility] [address] [address] [address] Darrick Cao Chloride [Moles/Vol] 107 mmol/L Normal 98-107 [facility] Comment on above: Performed By: #### P OCGLUC #### [facility] [address] [address] [address] Darrick Cao CO2 [Moles/Vol] 25.9 mmol/L Normal 21.0-32.0 [facility] Comment on above: Performed By: #### P OCGLUC #### [facility] [address] [address] [address] Darrick Cao Creatinine [Mass/Vol] 0.87 mg/dL Normal 0.55-1.02 [facility] Comment on above: Performed By: #### P OCGLUC #### [facility] [address] [address] [address] Darrick Cao EGFR-AF PRYDEINIG >60 Normal >=60 The [facility] Comment on above: Performed By: #### P OCGLUC #### [facility] [address] [address] [address] Darrick Cao EGFR-NON AF PRYDEINIG >60 Normal >=60 [facility] Comment on above: Performed By: #### P OCGLUC #### [facility] [address] [address] [address] Darrick Cao Globulin (S) [Mass/Vol] 3.8 g/dL Normal [facility] Comment on above: Performed By: #### P OCGLUC #### [facility] [address] [address] [address] Darrick Cao Glucose [Mass/Vol] 107 mg/dL Critically high 74-106 [facility] Comment on above: Performed By: #### P OCGLUC #### [facility] [address] [address] [address] Darrick Cao Potassium [Moles/Vol] 4.1 mmol/L Normal 3.5-5.1 [facility] Comment on above: Performed By: #### P OCGLUC #### [facility] [address] [place] [address] Dr. Darrick Cao Protein [Mass/Vol] 6.7 g/dL Normal 6.4-8.2 [facility] Comment on above: Performed By: #### P OCGLUC #### [facility] [address] [place] [address] Dr. Darrick Cao Sodium [Moles/Vol] 141 mmol/L Normal 136-145 [facility] Comment on above: Performed By: #### P OCGLUC #### [facility] [address] [place] [address] Dr. Darrick Cao Urea nitrogen [Mass/Vol] 10.0 mg/dL Normal 7.0-18.0 [facility] Comment on above: Performed By: #### P OCGLUC #### [facility] [address] [address] [address] Darrick Cao Urea nitrogen/Creatinine [Mass ratio] 11.5 mg/mg Normal [facility] Comment on above: Performed By: #### P OCGLUC #### [facility] [address] [address] [address] Darrick Cao VANCOMYCIN TROUGHon 04-24-20 VANCOMYCIN TROUGH 9.6 ug/ml Normal 5.0-20.0 [facility] Comment on above: Performed By: #### V ANCT #### [facility] [address] [place] [address] Dr. Darrick Cao CBC AUTO DIFFon 04-23-2022 BASO # 0.1 103/ul Normal 0.0-0.1 [facility] Comment on above: Performed By: #### C XWND #### [facility] [address] [place] [address] Dr. Darrick Cao Basophils/100 WBC (Bld) 0.6 % Normal 0.2-2.0 [facility] Comment on above: Performed By: #### C XWND #### [facility] [address] [place] [address] Dr. Darrick Cao EO # 0.1 103/ul Normal 0.0-0.7 [facility] Comment on above: Performed By: #### C XWND #### [facility] [address] [place] [address] Dr. Darrick Cao Eosinophils/100 WBC (Bld) 0.6 % Critically low 0.9-7.0 [facility] Comment on above: Performed By: #### C XWND #### [facility] [address] [place] [address] Dr. Darrick Cao Erythrocyte distribution width (RBC) [Ratio] 15.8 % Critically high 11.0-15.0 [facility] Comment on above: Performed By: #### C XWND #### [facility] [address] [place] [address] Dr. Darrick Cao Hematocrit (Bld) [Volume fraction] 34.0 % Critically low 36.0-48.0 [facility] Comment on above: Performed By: #### C XWND #### [facility] [address] [place] [address] Dr. Darrick Cao Hemoglobin (Bld) [Mass/Vol] 11.0 g/dL Critically low 12.0-16.0 [facility] Comment on above: Performed By: #### C XWND #### [facility] [address] [address] [address] Darrick Cao IG # 0.03 10e3/ul Normal 0.00-0.03 [facility] Comment on above: Performed By: #### C XWND #### [facility] [address] [address] [address] Darrick Cao IG % 0.4 % Normal 0.0-0.5 [facility] Comment on above: Performed By: #### C XWND #### [facility] [address] [address] [address] Darrick Cao LYMPH # 1.6 103/ul Normal 1.2-3.8 [facility] Comment on above: Performed By: #### C XWND #### [facility] [address] [place] [address] Dr. Darrick Cao Lymphocytes/100 WBC (Bld) 19.6 % Critically low 20.5-60.0 [facility] Comment on above: Performed By: #### C XWND #### [facility] [address] [address] [address] Darrick Cao MANUAL DIFF REQ NO Normal [facility] Comment on above: Performed By: #### C XWND #### [facility] [address] [address] [address] Darrick Cao MCH (RBC) [Entitic mass] 28.1 pg Normal 26.7-34.0 [facility] Comment on above: Performed By: #### C XWND #### [facility] [address] [address] [address] Darrick Cao MCHC (RBC) [Mass/Vol] 32.4 g/dL Normal 29.9-35.2 [facility] Comment on above: Performed By: #### C XWND #### [facility] [address] [address] [address] Darrick Cao MCV (RBC) [Entitic vol] 87.0 fL Normal 81.0-99.0 [facility] Comment on above: Performed By: #### C XWND #### [facility] [address] [address] [address] Darrick Cao MONO # 0.8 103/ul Normal 0.3-0.8 [facility] Comment on above: Performed By: #### C XWND #### [facility] [address] [address] [address] Darrick Cao Monocytes/100 WBC (Bld) 10.3 % Normal 1.7-12.0 [facility] Comment on above: Performed By: #### C XWND #### [facility] [address] [place] [address] Dr. Darrick Cao NEUT # 5.4 103/ul Normal 1.4-6.5 [facility] Comment on above: Performed By: #### C XWND #### [facility] [address] [place] [address] Dr. Darrick Cao Neutrophils/100 WBC (Bld) 68.5 % Normal 43.0-75.0 [facility] Comment on above: Performed By: #### C XWND #### [facility] [address] [place] [address] Dr. Darrick Cao Platelet mean volume (Bld) [Entitic vol] 9.9 fL Normal 9.5-13.5 [facility] Comment on above: Performed By: #### C XWND #### [facility] [address] [place] [address] Dr. Darrick Cao PLT 276 103/ul Normal 150-450 [facility] Comment on above: Performed By: #### C XWND #### [facility] [address] [place] [address] Dr. Darrick Cao RBC 3.91 106/ul Critically low 4.20-5.40 [facility] Comment on above: Performed By: #### C XWND #### [facility] [address] [place] [address] Dr. Darrick Cao WBC 7.9 103/ul Normal 4.0-11.0 [facility] Comment on above: Performed By: #### C XWND #### [facility] [address] [address] [address] Darrick Cao POINT OF CARE GLUCOSEon 04-01 Glucose [Mass/Vol] 138 mg/dL Critically high 74-106 [facility] Comment on above: Performed By: #### P OCGLUC ####[facility] [id number] [address]Dr. Darrick Cao Glucose [Mass/Vol] 151 mg/dL Critically high 74-106 [facility] Comment on above: Performed By: #### P OCGLUC #### [facility] [address] [address] [address] Darrick Cao Glucose [Mass/Vol] 141 mg/dL Critically high 74-106 [facility] Comment on above: Performed By: #### P OCGLUC ####[facility] [address] [address]Dr. Darrick Cao PROF 14(COMP METB)on 022 Albumin [Mass/Vol] 3.0 g/dL Critically low 3.4-5.0 [facility] Comment on above: Performed By: #### C XWND #### [facility] [address] [place] [address] Dr. Darrick Cao Albumin/Globulin [Mass ratio] 0.9 {ratio} Normal [facility] Comment on above: Performed By: #### C XWND #### [facility] [address] [address] [address] Darrick Cao ALP [Catalytic activity/Vol] 128 U/L Critically high 46-116 [facility] Comment on above: Performed By: #### C XWND #### [facility] [address] [place] [address] Dr. Darrick Cao ALT [Catalytic activity/Vol] 71 U/L Critically high 14-59 [facility] Comment on above: Performed By: #### C XWND #### [facility] [address] [place] [address] Dr. Darrick Cao Anion gap [Moles/Vol] 13.1 mmol/L Normal [facility] Comment on above: Performed By: #### C XWND #### [facility] [address] [place] [address] Dr. Darrick Cao AST [Catalytic activity/Vol] 50 U/L Critically high 15-37 [facility] Comment on above: Performed By: #### C XWND #### [facility] [address] [place] [address] Dr. Darrick Cao Bilirubin [Mass/Vol] 0.3 mg/dL Normal 0.2-1.0 [facility] Comment on above: Performed By: #### C XWND #### [facility] [address] [place] [address] Dr. Darrick Cao Calcium [Mass/Vol] 8.2 mg/dL Critically low 8.5-10.1 [facility] Comment on above: Performed By: #### C XWND #### [facility] [address] [place] [address] Dr. Darrick Cao Chloride [Moles/Vol] 110 mmol/L Critically high 98-107 [facility] Comment on above: Performed By: #### C XWND #### [facility] [address] [place] [address] Dr. Darrick Cao CO2 [Moles/Vol] 23.4 mmol/L Normal 21.0-32.0 [facility] Comment on above: Performed By: #### C XWND #### [facility] [address] [place] [address] Dr. Darrick Cao Creatinine [Mass/Vol] 0.96 mg/dL Normal 0.55-1.02 [facility] Comment on above: Performed By: #### C XWND #### [facility] [address] [place] [address] Dr. Darrick Cao EGFR-AF PRYDEINIG >60 Normal >=60 [facility] Comment on above: Performed By: #### C XWND #### [facility] [address] [place] [address] Dr. Darrick Cao EGFR-NON AF PRYDEINIG 59 mL/min/1.73m2 Critically low >=60 [facility] Comment on above: Performed By: #### C XWND #### [facility] [address] [place] [address] Dr. Darrick Cao Globulin (S) [Mass/Vol] 3.3 g/dL Normal [facility] Comment on above: Performed By: #### C XWND #### [facility] [address] [place] [address] Dr. Darrick Cao Glucose [Mass/Vol] 116 mg/dL Critically high 74-[address] [facility] Comment on above: Performed By: #### C XWND #### [facility] [address] [place] [address] Dr. Darrick Cao Potassium [Moles/Vol] 4.5 mmol/L Normal 3.5-5.1 [facility] Comment on above: Performed By: #### C XWND #### [facility] [address] [place] [address] Dr. Darrick Cao Protein [Mass/Vol] 6.3 g/dL Critically low 6.4-8.2 [facility] Comment on above: Performed By: #### C XWND #### [facility] [address] [place] [address] Dr. Darrick Cao Sodium [Moles/Vol] 142 mmol/L Normal 136-145 [facility] Comment on above: Performed By: #### C XWND #### [facility] [address] [place] [address] Dr. Darrick Cao Urea nitrogen [Mass/Vol] 14.0 mg/dL Normal 7.0-18.0 [facility] Comment on above: Performed By: #### C XWND #### [facility] [address] [place] [address] Dr. Darrick Cao Urea nitrogen/Creatinine [Mass ratio] 14.6 mg/mg Normal [facility] Comment on above: Performed By: #### C XWND #### [facility] [address] [place] [address] Dr. Darrick Cao CBC AUTO DIFFon 04-22-2022 BASO # 0.1 103/ul Normal 0.0-0.1 [facility] Comment on above: Performed By: #### C BC #### [facility] [address] [place] [address] Dr. Darrick Cao Basophils/100 WBC (Bld) 0.7 % Normal 0.2-2.0 [facility] Comment on above: Performed By: #### C BC #### [facility] [address] [place] [address] Dr. Darrick Cao EO # 0.1 103/ul Normal 0.0-0.7 [facility] Comment on above: Performed By: #### C BC #### [facility] [address] [place] [address] Dr. Darrick Cao Eosinophils/100 WBC (Bld) 0.5 % Critically low 0.9-7.0 [facility] Comment on above: Performed By: #### C BC #### [facility] [address] [place] [address] Dr. Darrick Cao Erythrocyte distribution width (RBC) [Ratio] 15.8 % Critically high 11.0-15.0 [facility] Comment on above: Performed By: #### C BC #### [facility] [address] [place] [address] Dr. Darrick Cao Hematocrit (Bld) [Volume fraction] 39.8 % Normal 36.0-48.0 [facility] Comment on above: Performed By: #### C BC #### [facility] [address] [place] [address] Dr. Darrick Cao Hemoglobin (Bld) [Mass/Vol] 12.9 g/dL Normal 12.0-16.0 [facility] Comment on above: Performed By: #### C BC #### [facility] [address] [place] [address] Dr. Darrick Cao IG # 0.03 10e3/ul Normal 0.00-0.03 [facility] Comment on above: Performed By: #### C BC #### [facility] [address] [place] [address] Dr. Darrick Cao IG % 0.3 % Normal 0.0-0.5 [facility] Comment on above: Performed By: #### C BC #### [facility] [address] [place] [address] Dr. Darrick Cao LYMPH # 1.6 103/ul Normal 1.2-3.8 [facility] Comment on above: Performed By: #### C BC #### [facility] [address] [place] [address] Dr. Darrick Cao Lymphocytes/100 WBC (Bld) 16.0 % Critically low 20.5-60.0 [facility] Comment on above: Performed By: #### C BC #### [facility] [address] [place] [address] Dr. Darrick Cao MANUAL DIFF REQ NO Normal [facility] Comment on above: Performed By: #### C BC #### [facility] [address] [place] [address] Dr. Darrick Cao MCH (RBC) [Entitic mass] 28.2 pg Normal 26.7-34.0 [facility] Comment on above: Performed By: #### C BC #### [facility] [address] [place] [address] Dr. Darrick Cao MCHC (RBC) [Mass/Vol] 32.4 g/dL Normal 29.9-35.2 [facility] Comment on above: Performed By: #### C BC #### [facility] [address] [place] [address] Dr. Darrick Cao MCV (RBC) [Entitic vol] 86.9 fL Normal 81.0-99.0 [facility] Comment on above: Performed By: #### C BC #### [facility] [address] [place] [address] Dr. Darrick Cao MONO # 0.9 103/ul Critically high 0.3-0.8 [facility] Comment on above: Performed By: #### C BC #### [facility] [address] [place] [address] Dr. Darrick Cao Monocytes/100 WBC (Bld) 8.7 % Normal 1.7-12.0 [facility] Comment on above: Performed By: #### C BC #### [facility] [address] [address] [address] Darrick Cao NEUT # 7.5 103/ul Critically high 1.4-6.5 [facility] Comment on above: Performed By: #### C BC #### [facility] [address] [address] [address] Darrick Cao Neutrophils/100 WBC (Bld) 73.8 % Normal 43.0-75.0 [facility] Comment on above: Performed By: #### C BC #### [facility] [address] [address] [address] Darrick Cao Platelet mean volume (Bld) [Entitic vol] 9.3 fL Critically low 9.5-13.5 [facility] Comment on above: Performed By: #### C BC #### [facility] [address] [place] [address] Dr. Darrick Cao PLT 345 103/ul Normal 150-450 [facility] Comment on above: Performed By: #### C BC #### [facility] [address] [address] [address] Darrick Cao RBC 4.58 106/ul Normal 4.20-5.40 [facility] Comment on above: Performed By: #### C BC #### [facility] [address] [place] [address] Dr. Darrick Cao WBC 10.1 103/ul Normal 4.0-11.0 [facility] Comment on above: Performed By: #### C BC #### [facility] [address] [address] [address] Darrick Cao CRPon 04-22-2022 CRP 5.2 mg/dL Critically high <=1.0 [facility] Comment on above: Performed By: #### B MP, CRP ####[facility] [address] [address]Dr. Darrick Cao CULTURE BLOODon 04-22-2022 Microscopic examination of blood, culture Culture Observations: NO GROWTH AT 5 DAYS. Normal [facility] Comment on above: Performed By: #### B LDCX2 #### [facility] [address] [place] [address] Dr. Darrick Cao Microscopic examination of blood, culture Culture Observations: NO GROWTH AT 5 DAYS. Normal [facility] Comment on above: Performed By: #### B LDCX1 #### [facility] [address] [address] [address] Darrick Ca[facility]01 SARS-CoV-2 (COVID-19) RNA ALEKSANDR+probe Ql (Unsp spec) Not detected Normal NOT DETECTED [facility] Comment on above: Result Comment: When [...] for this test is supported by the Probation And Parole Officer of Health and Human Service's declaration that [...] Performed By: #### P OCGLUC #### [facility] [address] [place] [address] Dr. Darrick Cao LACTATE/LACTIC ACIDon 2021 Lactate [Moles/Vol] 1.3 mmol/L Normal 0.4-1.9 [facility] Comment on above: Performed By: #### P OCGLUC #### [facility] [address] [place] [address] Dr. Darrick Cao POINT OF CARE GLUCOSEon 04-01 Glucose [Mass/Vol] 96 mg/dL Normal 74-106 [facility] Comment on above: Performed By: #### P OCGLUC #### [facility] [address] [address] [address] Darrick Cao PROF CHEM 8 (BAS METB)on Anion gap [Moles/Vol] 12.3 mmol/L Normal [facility] Comment on above: Performed By: #### B MP, CRP ####[facility] [address] [address]Dr. Darrick Cao Calcium [Mass/Vol] 9.2 mg/dL Normal 8.5-10.1 [facility] Comment on above: Performed By: #### B MP, CRP ####[facility] [address] [address]Dr. Darrick Cao Chloride [Moles/Vol] 104 mmol/L Normal 98-107 [facility] Comment on above: Performed By: #### B MP, CRP ####[facility] [address] [address]Dr. Darrick Cao CO2 [Moles/Vol] 26.4 mmol/L Normal 21.0-32.0 [facility] Comment on above: Performed By: #### B MP, CRP ####[facility] [address] [address]Dr. Darrick Cao Creatinine [Mass/Vol] 1.19 mg/dL Critically high 0.55-1.02 [facility] Comment on above: Performed By: #### B MP, CRP ####[facility] [address] [address]Dr. Darrick Cao EGFR-AF PRYDEINIG 56 mL/min/1.73m2 Critically low >=60 [facility] Comment on above: Performed By: #### B MP, CRP ####[facility] [address] [address]Dr. Darrick Cao EGFR-NON AF PRYDEINIG 46 mL/min/1.73m2 Critically low >=60 [facility] Comment on above: Performed By: #### B MP, CRP ####[facility] [address] [id number]. Darrick Cao Glucose [Mass/Vol] 124 mg/dL Critically high 74-106 [facility] Comment on above: Performed By: #### B MP, CRP ####[facility] [address] [id number]. Darrick Cao Potassium [Moles/Vol] 4.7 mmol/L Normal 3.5-5.1 [facility] Comment on above: Performed By: #### B MP, CRP ####[facility] [address] [id number]. Darrick Cao Sodium [Moles/Vol] 138 mmol/L Normal 136-145 [facility] Comment on above: Performed By: #### B MP, CRP ####[facility] [address] [address]Dr. Darrick Cao Urea nitrogen [Mass/Vol] 21.0 mg/dL Critically high 7.0-18.0 [facility] Comment on above: Performed By: #### B MP, CRP ####[facility] [address] [id number]. Darrick Cao Urea nitrogen/Creatinine [Mass ratio] 17.6 mg/mg Normal [facility] Comment on above: Performed By: #### B MP, CRP ####[facility] [address] [id number]. Darrick Cao SED RATE [facility] 2021 SED RATE 64 mm/hr Critically high <=30 [facility] Comment on above: Performed By: #### P OCGLUC #### [facility] [address] [address] [address] ANKLE LT WO [...] by: SHAWNEE KELLY Date: 2022-03-11 10:18 Normal [facility] Yvolver Quick Testingon 2020 Result Negative [facility] Other Operative Reporton Operative Report MR#: [id number] S [facility] Pt. Name: Nicol Knowles Room #: 0C Discharge Date: Birthdate: 1960 OPERATIVE REPORT DATE OF SURGERY: 12/16/2020 SURGEON: David Lr M.D. PREOPERATIVE DIAGNOSIS: Trigger digits, right long finger and thumb. POSTOPERATIVE DIAGNOSIS: Trigger digits, right long finger and thumb. PROCEDURE: A1 leigha release, right long finger and thumb. 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 ANESTHESIA: MAC. INDICATION FOR [...] Lr M.D. Date Trans: 12/16/2020 09:13 A/braxton SANTILLAN_JN:[id number] cc: Waqas Pierce M.D. [address] [place] [id number] Normal [facility] POC GLUCOSE LABon 12-16-2020 Glucose [Mass/Vol] 103 mg/dL High 70-100 [facility] Comment on above: Performed By: #### 8 [id number] #### [facility] [address] Vital Signs Date Time Vital Sign Value Performing Clinician Facility 06-16-2024 09:58-0400 Body height 170.18 cm [facility] 06-16-2024 09:58-0400 Body mass index (BMI) [Ratio] 44.9 kg/m2 [facility] 06-16-2024 09:58-0400 Body weight 130.18 kg [facility] 06-16-2024 09:58-0400 Diastolic blood pressure 75 mm[Hg] [facility] 06-16-2024 09:58-0400 Heart rate 83 /min [facility] 06-16-2024 09:58-0400 Systolic blood pressure 114 mm[Hg] [facility] 05-23-2024 10:46-0400 Body mass index (BMI) [Ratio] 47.9 kg/m2 [facility] 05-23-2024 09:49-0400 Body height 170.18 cm [facility] 05-23-2024 09:49-0400 Body weight 127.45 kg [facility] 02-21-2024 10:03-0400 Body height 170.18 cm MD Waqas Pierce Work Phone: [facility] 02-21-2024 10:03-0400 Body mass index (BMI) [Ratio] 42.3 kg/m2 MD Waqas Pierce Work Phone: [facility] 02-21-2024 10:03-0400 Body weight 122.49 kg MD Waqas Pierce Work Phone: [facility] 02-21-2024 10:03-0400 Diastolic blood pressure 88 mm[Hg] MD Waqas Pierce Work Phone: [facility] 02-21-2024 10:03-0400 Heart rate 85 /min MD Waqas Pierce Work Phone: [facility] 02-21-2024 10:03-0400 Respiratory rate 18 /min MD Waqas Pierce Work Phone: [facility] 02-21-2024 10:03-0400 SaO2% (BldA) [Mass fraction] 97 % MD Waqas Pierce Work Phone: [facility] 02-21-2024 10:03-0400 Systolic blood pressure 142 mm[Hg] MD Waqas Pierce Work Phone: [facility] 01-15-2024 10:50-0400 Body height 170.18 cm [facility] 01-15-2024 10:50-0400 Body mass index (BMI) [Ratio] 47.9 kg/m2 [facility] 01-15-2024 10:50-0400 Body weight 138.88 kg [facility] 01-10-2024 09:49-0400 Body mass index (BMI) [Ratio] 47.9 kg/m2 MD Waqas Pierce Work Phone: [facility] 01-10-2024 08:37-0400 Body height 170.18 cm MD Waqas Pierce Work Phone: [facility] 01-10-2024 08:37-0400 Body weight 117.02 kg MD Waqas Pierce Work Phone: [facility] 01-03-2024 10:52-0400 Body height 170.18 cm MD Waqas Pierce Work Phone: [facility] 01-03-2024 10:52-0400 Body mass index (BMI) [Ratio] 39.8 kg/m2 MD Waqas Pierce Work Phone: [facility] 01-03-2024 10:52-0400 Body weight 115.41 kg MD Waqas Pierce Work Phone: [facility] 01-03-2024 10:52-0400 Diastolic blood pressure 89 mm[Hg] MD Waqas Pierce Work Phone: [facility] 01-03-2024 10:52-0400 Heart rate 87 /min MD Waqas Pierce Work Phone: [facility] 01-03-2024 10:52-0400 Respiratory rate 18 /min MD Waqas Pierce Work Phone: [facility] 01-03-2024 10:52-0400 SaO2% (BldA) [Mass fraction] 99 % MD Waqas Pierce Work Phone: [facility] 01-03-2024 10:52-0400 Systolic blood pressure 128 mm[Hg] MD Waqas Pierce Work Phone: [facility] 12-10-2023 11:39-0400 Body mass index (BMI) [Ratio] 47.9 kg/m2 MD Waqas Pierce Work Phone: [facility] 12-10-2023 10:57-0400 Body height 170.18 cm MD Waqas Pierce Work Phone: [facility] 12-10-2023 10:57-0400 Body weight 117.02 kg MD Waqas Pierce Work Phone: [facility] 11-22-2023 10:59-0500 Body height 170.18 cm [facility] 11-22-2023 10:59-0500 Body mass index (BMI) [Ratio] 41.1 kg/m2 [facility] 11-22-2023 10:59-0500 Body weight 119.01 kg [facility] 11-22-2023 10:59-0500 Diastolic blood pressure 84 mm[Hg] [facility] 11-22-2023 10:59-0500 Heart rate 72 /min [facility] 11-22-2023 10:59-0500 Respiratory rate 18 /min [facility] 11-22-2023 10:59-0500 SaO2% (BldA) [Mass fraction] 99 % [facility] 11-22-2023 10:59-0500 Systolic blood pressure 132 mm[Hg] [facility] 11-21-2023 09:48-0500 Body height 170.18 cm [facility] 11-21-2023 09:48-0500 Body mass index (BMI) [Ratio] 40.7 kg/m2 [facility] 11-21-2023 09:48-0500 Body temperature 98.2 [degF] [facility] 11-21-2023 09:48-0500 Body weight 117.99 kg [facility] 11-21-2023 09:48-0500 Diastolic blood pressure 82 mm[Hg] [facility] 11-21-2023 09:48-0500 Heart rate 105 /min [facility] 11-21-2023 09:48-0500 Systolic blood pressure 131 mm[Hg] [facility] 11-19-2023 09:52-0500 Body height 170.18 cm [facility] 11-19-2023 09:52-0500 Body mass index (BMI) [Ratio] 40.8 kg/m2 [facility] 11-19-2023 09:52-0500 Body weight 118.38 kg [facility] 11-01-2023 11:15-0500 Body height 170.18 cm Waqas Pierce Other [facility] 11-01-2023 11:15-0500 Body mass index (BMI) [Ratio] 40.75 kg/m2 Waqas Pierce Other [facility] Other 11-01-2023 11:15-0500 Body weight 118.03 kg Waqas Pierce Other [facility] Other 11-01-2023 11:15-0500 Body weight 118.02 kg [facility] 11-01-2023 11:15-0500 Diastolic blood pressure 87 mm[Hg] Waqas Pierce Other [facility] 02-01-2024 11:15-0500 Systolic blood pressure 127 mm[Hg] Waqas Pierce Other [facility] 10-15-2023 10:00-0500 Body height 170.18 cm Grecia Fitt Other [facility] 10-15-2023 10:00-0500 Body mass index (BMI) [Ratio] 40.08 kg/m2 Grecia Fitt Other [facility] Other 10-15-2023 10:00-0500 Body weight 116.08 kg Grecia Fitt Other [facility] Other 10-15-2023 10:00-0500 Body weight 116.07 kg [facility] 09-18-2023 11:00-0500 Body height 170.18 cm Rolando Castellanos Other [facility] 09-18-2023 11:00-0500 Body mass index (BMI) [Ratio] 40.45 kg/m2 Rolando Castellanos Other [facility] Other 09-18-2023 11:00-0500 Body weight 117.16 kg Rolando Castellanos Other [facility] 09-18-2023 11:00-0500 Diastolic blood pressure 80 mm[Hg] Rolando Castellanos Other [facility] 09-18-2023 11:00-0500 Respiratory rate 18 /min Rolando Castellanos Other [facility] Other 09-18-2023 11:00-0500 SaO2% (BldA) [Mass fraction] 98 % Rolando Castellanos Other [facility] Other 09-18-2023 11:00-0500 Systolic blood pressure 115 mm[Hg] Rolando Castellanos Other [facility] 09-17-2023 10:45-0500 Body height 170.18 cm Grecia Henryt Other [facility] 09-17-2023 10:45-0500 Body mass index (BMI) [Ratio] 40.65 kg/m2 Grecia Fitt Other [facility] Other 09-17-2023 10:45-0500 Body weight 117.75 kg Grecia Fitt Other [facility] 09-03-2023 12:45-0500 Diastolic blood pressure 60 mm[Hg] MD Waqas Pierce Work Phone: [facility] 09-03-2023 12:45-0500 Heart rate 70 /min MD Waqas Pierce Work Phone: [facility] 09-03-2023 12:45-0500 Inhaled oxygen flow rate 1 L/min MD Waqas Pierce Work Phone: [facility] 09-03-2023 12:45-0500 Respiratory rate 16 /min MD Waqas Pierce Work Phone: [facility] 09-03-2023 12:45-0500 SaO2% (BldA) [Mass fraction] 97 % MD Waqas Pierce Work Phone: [facility] 09-03-2023 12:45-0500 Systolic blood pressure 132 mm[Hg] MD Waqas Pierce Work Phone: [facility] 09-03-2023 10:21-0500 Body temperature 98.4 [degF] MD Waqas Pierce Work Phone: [facility] 09-03-2023 07:14-0500 Body height 172.72 cm MD Waqas Pierce Work Phone: [facility] 09-03-2023 07:14-0500 Body mass index (BMI) [Ratio] 39.5 kg/m2 MD Waqas Pierce Work Phone: [facility] 09-03-2023 07:14-0500 Body weight 118 kg MD Waqas Pierce Work Phone: [facility] 08-21-2023 14:30-0500 Body height 170.18 cm Waqas Pierce Other [facility] Other 08-21-2023 14:30-0500 Body mass index (BMI) [Ratio] 39.46 kg/m2 Waqas Pierce Other [facility] Other 08-21-2023 14:30-0500 Body weight 114.31 kg Waqas Pierce Other [facility] Other 08-21-2023 14:30-0500 Diastolic blood pressure 84 mm[Hg] Waqas Pierce Other [facility] Other 08-21-2023 14:30-0500 Systolic blood pressure 138 mm[Hg] Waqas Pierce Other [facility] Other 08-13-2023 10:45-0500 Body height 170.18 cm Grceia Fitt Other [facility] Other 08-13-2023 10:45-0500 Body mass index (BMI) [Ratio] 41.22 kg/m2 Grecia Fitt Other [facility] Other 08-13-2023 10:45-0500 Body weight 119.39 kg Grecia Fitt Other [facility] Other 07-26-2023 11:30-0400 Body height 170.18 cm Rolando Castellanos Other [facility] Other 07-26-2023 11:30-0400 Body mass index (BMI) [Ratio] 41.86 kg/m2 Rolando Castellanos Other [facility] Other 07-26-2023 11:30-0400 Body weight 121.25 kg Rolando Castellanos Other [facility] Other 07-26-2023 11:30-0400 Diastolic blood pressure 77 mm[Hg] Rolando Castellanos Other [facility] Other 07-26-2023 11:30-0400 Respiratory rate 18 /min Rolando Castellanos Other [facility] Other 07-26-2023 11:30-0400 SaO2% (BldA) [Mass fraction] 98 % Rolando Castellanos Other [facility] Other 07-26-2023 11:30-0400 Systolic blood pressure 121 mm[Hg] Rolando Castellanos Other [facility] Other 07-23-2023 10:45-0400 Body height 170.18 cm Grecia Fitt Other [facility] Other 07-23-2023 10:45-0400 Body mass index (BMI) [Ratio] 41.78 kg/m2 Grecia Fitt Other [facility] Other 07-23-2023 10:45-0400 Body weight 121.02 kg Grecia Fitt Other [facility] Other 06-27-2023 15:15-0400 Body height 170.18 cm David Mcfarland II Other [facility] Other 06-27-2023 15:15-0400 Body mass index (BMI) [Ratio] 41.97 kg/m2 David Rdzle II Other [facility] Other 06-27-2023 15:15-0400 Body weight 121.56 kg David Rdzle II Other [facility] Other 06-18-2023 11:30-0400 Body height 170.18 cm Grecia Fitt Other [facility] Other 06-18-2023 11:30-0400 Body mass index (BMI) [Ratio] 42.52 kg/m2 Grecia Fitt Other [facility] Other 06-18-2023 11:30-0400 Body weight 123.15 kg Grecia Fitt Other [facility] Other 06-14-2023 10:00-0400 Body height 170.18 cm Rolando Castellanos Other [facility] Other 06-14-2023 10:00-0400 Body mass index (BMI) [Ratio] 42.89 kg/m2 Rolando Castellanos Other [facility] Other 06-14-2023 10:00-0400 Body weight 124.24 kg Rolando Castellanos Other [facility] Other 06-14-2023 10:00-0400 Diastolic blood pressure 87 mm[Hg] Rolando Castellanos Other [facility] Other 06-14-2023 10:00-0400 Respiratory rate 18 /min Rolando Castellanos Other [facility] Other 06-14-2023 10:00-0400 SaO2% (BldA) [Mass fraction] 100 % Rolando Castellanos Other [facility] Other 06-14-2023 10:00-0400 Systolic blood pressure 124 mm[Hg] Rolando Castellanos Other [facility] Other 06-11-2023 12:45-0400 Body height 170.18 cm Waqas Pierce Other [facility] Other 06-11-2023 12:45-0400 Body mass index (BMI) [Ratio] 42.41 kg/m2 Waqas Pierce Other [facility] Other 06-11-2023 12:45-0400 Body weight 122.83 kg Waqas Pierce Other [facility] Other 06-11-2023 12:45-0400 Diastolic blood pressure 76 mm[Hg] Waqas Pierce Other [facility] Other 06-11-2023 12:45-0400 Respiratory rate 12 /min Waqas Pierce Other [employer] Other 06-11-2023 12:45-0400 Systolic blood pressure 124 mm[Hg] Waqas Pierce Other [employer] Other 05-14-2023 10:00-0400 Body height 170.18 cm Grecia Carrera Other [employer] Other 05-14-2023 10:00-0400 Body mass index (BMI) [Ratio] 43.05 kg/m2 Grecia Fitt Other [employer] Other 05-14-2023 10:00-0400 Body weight 124.69 kg Grecia Fitt Other [employer] Other 04-16-2023 10:00-0400 Body height 170.18 cm Grecia Fitt Other [employer] Other 04-16-2023 10:00-0400 Body mass index (BMI) [Ratio] 43.94 kg/m2 Grecia Fitt Other [employer] Other 04-16-2023 10:00-0400 Body weight 127.28 kg Grecia Fitt Other [employer] Other 01-11-2023 11:00-0400 Body height 170.18 cm Grecia Fitt Other [employer] Other 01-11-2023 11:00-0400 Body mass index (BMI) [Ratio] 47.37 kg/m2 Grecia Fitt Other [employer] Other 01-11-2023 11:00-0400 Body weight 137.21 kg Grecia Fitt Other [employer] Other 11-16-2022 11:45-0500 Body height 170.18 cm Rolando Jasmin Other [employer] Other 11-16-2022 11:45-0500 Body mass index (BMI) [Ratio] 47 kg/m2 Rolando Jasmin Other [employer] Other 11-16-2022 11:45-0500 Body weight 136.13 kg Rolando Jasmin Other [employer] Other 11-16-2022 11:45-0500 Diastolic blood pressure 85 mm[Hg] Rolando Jasmin Other [employer] Other 11-16-2022 11:45-0500 Respiratory rate 18 /min Rolando Reyesdiff Other [employer] Other 11-16-2022 11:45-0500 SaO2% (BldA) [Mass fraction] 97 % Rolando Reyesdiff Other [employer] Other 11-16-2022 11:45-0500 Systolic blood pressure 114 mm[Hg] Rolando Reyesdiff Other [employer] Other 11-14-2022 09:15-0500 Body height 170.18 cm Grecia Carrera Other [employer] Other 11-08-2022 14:57-0500 Blood Pressure Location Efrain NILL [facility] [place] 11-08-2022 14:57-0500 Diastolic blood pressure 74 mm[Hg] Efrain NILL [facility] [place] 11-08-2022 14:57-0500 Heart rate 80 /min Efrain NILL [facility] [place] 11-08-2022 14:57-0500 Respiratory rate 16 /min Efrain NILL [facility] [place] 11-08-2022 14:57-0500 Systolic blood pressure 118 mm[Hg] Efrain NILL [facility] [place] 10-23-2022 10:30-0500 Body height 170.18 cm Waqas Pierce Other [employer] Other 10-23-2022 10:30-0500 Body mass index (BMI) [Ratio] 46.04 kg/m2 Waqas Pierce Other [employer] Other 10-23-2022 10:30-0500 Body weight 133.36 kg Waqas Pierce Other [employer] Other 10-23-2022 10:30-0500 Diastolic blood pressure 88 mm[Hg] Waqas Pierce Other [employer] Other 10-23-2022 10:30-0500 Systolic blood pressure 148 mm[Hg] Waqasyunior Pierce Other [employer] Other 10-13-2022 10:15-0500 Body height 170.18 cm Rachel Missler Other [employer] Other 10-13-2022 10:15-0500 Body mass index (BMI) [Ratio] 45.89 kg/m2 Rachel Missler Other [employer] Other 10-13-2022 10:15-0500 Body weight 132.9 kg Rachel Missler Other [employer] Other 10-13-2022 10:15-0500 Diastolic blood pressure 89 mm[Hg] Rachel Missler Other [employer] Other 10-13-2022 10:15-0500 Respiratory rate 18 /min Rachel Missler Other [employer] Other 10-13-2022 10:15-0500 SaO2% (BldA) [Mass fraction] 96 % Rachel Missler Other [employer] Other 10-13-2022 10:15-0500 Systolic blood pressure 138 mm[Hg] Rachel Vela Other [employer] Other 09-06-2022 16:00-0500 Body height 170.18 cm David Rdzle II Other [employer] Other 09-06-2022 16:00-0500 Body mass index (BMI) [Ratio] 45.57 kg/m2 David Rdzle II Other [employer] Other 09-06-2022 16:00-0500 Body weight 132 kg David Rdzle II Other [employer] Other 07-25-2021 18:45-0400 Body height 170.18 cm Mallory Wilfrid Other [employer] Other 07-25-2021 18:45-0400 Body mass index (BMI) [Ratio] 42.91 kg/m2 Mallory Wilfrid Other [employer] Other 07-25-2021 18:45-0400 Body temperature 98.6 [degF] Mallory Wilfrid Other [employer] Other 07-25-2021 18:45-0400 Body weight 124.29 kg Mallory Wilfrid Other [employer] Other 07-25-2021 18:45-0400 Respiratory rate 18 /min Mallory Yuen Other [employer] Other 07-25-2021 18:45-0400 SaO2% (BldA) [Mass fraction] 96 % Mallory Yuen Other [employer] Other Encounters Encounter Date Encounter Type Care Provider Facility Start: 06-16-2024 End: 06-16-2024 ambulatory [facility] Work Phone: Start: 06-16-2024 End: 06-16-2024 Patient encounter procedure [facility] Work Phone: Start: 05-23-2024 End: 05-23-2024 ambulatory [facility] Work Phone: Start: 05-23-2024 End: 05-23-2024 Patient encounter procedure [facility] Work Phone: Start: 02-21-2024 End: 02-21-2024 ambulatory MD Waqas Pierce [facility] Work Phone: Start: 02-21-2024 End: 02-21-2024 Patient encounter procedure MD Waqas Pierce Work Phone: [facility] Work Phone: Start: 01-15-2024 End: 01-15-2024 ambulatory NON STAFF [facility] Work Phone: Start: 01-15-2024 End: 01-15-2024 Patient encounter procedure [facility] Work Phone: Start: 01-11-2024 Non-patient / Non-visit [facility] [employer] Work Phone: Start: 01-10-2024 End: 01-10-2024 ambulatory MD Waqas Pierce Work Phone: [facility] Work Phone: Start: 01-10-2024 End: 01-10-2024 Patient encounter procedure MD Waqas Pierce Work Phone: [facility] Work Phone: Start: 01-03-2024 End: 01-03-2024 ambulatory MD Waqas Pierce Work Phone: [facility] Work Phone: Start: 01-03-2024 End: 01-03-2024 Patient encounter procedure MD Waqas Pierce Work Phone: [facility] Work Phone: Start: 12-26-2023 End: 12-26-2023 ambulatory MD Waqas Pierce Work Phone: [facility] Work Phone: Start: 12-26-2023 End: 12-26-2023 Patient encounter procedure MD Waqas Pierce Work Phone: [facility] Work Phone: Start: 12-10-2023 End: 12-10-2023 Patient encounter procedure MD Waqas Pierce Work Phone: [facility] Work Phone: Start: 12-04-2023 Registered Recurring MD Waqas Pierce Work Phone: [facility] Start: 11-28-2023 End: 11-28-2023 Patient encounter procedure MD Waqas Pierce Work Phone: [facility] Work Phone: Start: 11-28-2023 End: 11-28-2023 Patient encounter procedure MD Waqas Pierce Work Phone: [facility] Start: 11-28-2023 End: 11-28-2023 ambulatory David Mcfarland II Facility:[facility] Start: 11-22-2023 End: 11-22-2023 ambulatory NON STAFF [facility] Work Phone: Start: 11-22-2023 End: 11-22-2023 Patient encounter procedure [facility] Work Phone: Start: 11-21-2023 End: 11-21-2023 ambulatory NON STAFF [facility] Work Phone: Start: 11-21-2023 End: 11-21-2023 Patient encounter procedure [facility] Work Phone: Start: 11-20-2023 Registered Recurring MD Waqas Pierce Work Phone: [facility] Start: 11-19-2023 End: 11-19-2023 ambulatory NON STAFF [facility] Work Phone: Start: 11-19-2023 End: 11-19-2023 Patient encounter procedure [facility] Work Phone: Start: 11-01-2023 End: 11-01-2023 ambulatory Waqas Pierce Other [employer] Other Start: 11-01-2023 Office outpatient vi sit 15 minutes Waqas Pierce [facility] Start: 11-01-2023 End: 11-01-2023 Patient encounter procedure [facility]- Start: 10-31-2023 End: 10-31-2023 ambulatory Waqas Pierce Other [employer] Other Start: 10-31-2023 Telephone encounter Waqas Pierce [facility] Start: 10-23-2023 Registered Recurring MD Waqas Pierce Work Phone: [facility] Start: 10-17-2023 Postop follow up vis it related to original px David Mcfarland II [facility] Start: 10-17-2023 End: 10-17-2023 Patient encounter procedure [facility] Start: 10-17-2023 End: 10-17-2023 ambulatory NON STAFF [facility] Work Phone: Start: 10-15-2023 ([facility] RD FU) [facility] F/ U [employer] Grecia Carrera [facility] Start: 10-15-2023 Registered Recurring Litzy [facility] Work Phone: Start: 10-15-2023 End: 10-15-2023 ambulatory David Mcfarland II [employer] Other Start: 10-15-2023 End: 10-15-2023 Patient encounter procedure [facility] Work Phone: Start: 10-02-2023 End: 10-02-2023 ambulatory Rolando Jasmin Other [employer] Other Start: 10-02-2023 Telephone encounter Rolando Castellanos [facility] Start: 09-19-2023 End: 09-19-2023 ambulatory David Mcfarland II Other [employer] Other Start: 09-19-2023 Postop follow up vis it related to original px Carrie Perea [facility] Start: 09-19-2023 Telephone encounter David Mcfarland II [facility] Start: 09-19-2023 End: 09-19-2023 Patient encounter procedure [facility] Work Phone: Start: 09-18-2023 End: 09-18-2023 ambulatory Rolando Castellanos Other [employer] Other Start: 09-18-2023 Follow-up encounter Rolando dhillon [facility] Start: 09-18-2023 End: 09-18-2023 Patient encounter procedure [facility] Work Phone: Start: 09-17-2023 ([facility] RD FU) [facility] F/ U [employer] Grecia Carrera [facility] Start: 09-17-2023 End: 09-17-2023 ambulatory Grecia Carrera Other [employer] Other Start: 09-17-2023 End: 09-17-2023 Patient encounter procedure [facility] Work Phone: Start: 09-10-2023 End: 09-10-2023 ambulatory David Bartolo II Other [employer] Other Start: 09-10-2023 Telephone encounter David Rdzle II [facility] Start: 09-03-2023 End: 09-03-2023 Admission to same day surgery center MD Waqas Pierce Work Phone: [facility]-Surgery Center [address] [place] Start: 09-03-2023 End: 09-03-2023 ambulatory MD Waqas Pierce Work Phone: [facility] Work Phone: Start: 08-31-2023 (Prolonged) Prolonge d Services David Bartolo II [facility] Start: 08-31-2023 Registered Recurring MD Waqas Pierce Work Phone: [facility]-Physical Therapy [employer] Start: 08-31-2023 End: 08-31-2023 ambulatory NON STAFF [employer] [facility] [employer] Other Start: 08-30-2023 End: 08-30-2023 ambulatory David Whatcom II Other [employer] Other Start: 08-30-2023 Office outpatient vi sit 40 minutes David Whatcom II [facility] Start: 08-28-2023 End: 08-28-2023 Patient encounter procedure MD Waqas Pierce Work Phone: [facility]-Pre-Surgical Testing Work Phone: Start: 08-28-2023 End: 08-28-2023 ambulatory MD Waqas Pierce Work Phone: [facility] Work Phone: Start: 08-28-2023 Registered Recurring [facility] Start: 08-21-2023 End: 08-21-2023 ambulatory Waqas Pierce Other [employer] Other Start: 08-21-2023 Encounter for other preprocedural examination Waqas Pierce [facility] Start: 08-21-2023 Office outpatient vi sit 25 minutes Waqas Pierce [facility] Start: 08-15-2023 End: 08-15-2023 Patient encounter procedure MD Waqas Pierce Work Phone: [facility] Start: 08-15-2023 End: 08-15-2023 ambulatory MD Waqas Pierce Work Phone: [facility] Work Phone: Start: 08-13-2023 Registered Recurring MD Waqas Pierce Work Phone: [facility] Work Phone: Start: 08-13-2023 ([facility] RD FU) [facility] F/ U [employer] Grecia Carrera [facility] Start: 08-13-2023 End: 08-13-2023 ambulatory Grecia Carrera Other [employer] Other Start: 08-06-2023 End: 08-06-2023 ambulatory David Mcfarland II Other [employer] Other Start: 08-06-2023 Telephone encounter David Mcfarland II [facility] Start: 08-01-2023 End: 08-01-2023 ambulatory Waqas Pierce Other [employer] Other Start: 08-01-2023 Telephone encounter Waqas Pierce [facility] Start: 07-31-2023 (Televisit) Televisit Waqas Vasquez [facility] Start: 07-31-2023 End: 07-31-2023 ambulatory Waqas Pierce Other [employer] Other Start: 07-26-2023 End: 07-26-2023 ambulatory Rolando Castellanos Other [employer] Other Start: 07-26-2023 Follow-up encounter Rolando Castellanos Christina bel[facility] Start: 07-26-2023 Telephone encounter David Mcfarland II [facility] Start: 07-23-2023 ([facility] RD FU) [facility] F/ U [employer] Grecia Carrera [facility] Start: 07-23-2023 End: 07-23-2023 ambulatory Grecia Fitt Other [employer] Other Start: 07-16-2023 End: 07-16-2023 ambulatory KIMBERLY MARJORIE [facility] Start: 07-09-2023 End: 07-09-2023 ambulatory Rolando Castellanos Other [employer] Other Start: 07-09-2023 Telephone encounter Rolando Castellanos Christina [facility] Start: 06-27-2023 End: 06-27-2023 ambulatory David Mcfarland II Other [employer] Other Start: 06-27-2023 Office outpatient vi sit 25 minutes David Mcfarland II [facility] Start: 06-19-2023 End: 06-19-2023 ambulatory Waqas Pierce Other [employer] Other Start: 06-19-2023 Telephone encounter Waqas Pierce [facility] Start: 06-18-2023 ([facility] RD FU) [facility] F/ U [employer] Grecia Carrera [facility] Start: 06-18-2023 End: 06-18-2023 ambulatory Grecia Fitt Other [employer] Other Start: 06-14-2023 End: 06-14-2023 ambulatory Rolando Castellanos Other [employer] Other Start: 06-14-2023 Follow-up encounter Rolando Castellanos [facility] Start: 06-11-2023 End: 06-11-2023 ambulatory Waqas Kari Other [employer] Other Start: 06-11-2023 Encounter for genera l adult medical examination without abnormal findings Waqas Kari [facility] Start: 06-11-2023 Periodic preventive med est patient 40-64yrs Waqas Kari [facility] Start: 06-01-2023 End: 06-01-2023 ambulatory Waqas Pierce Other [employer] Other Start: 06-01-2023 Telephone encounter Waqas Kari [facility] Start: 05-28-2023 End: 05-28-2023 ambulatory Waqas Pierce Other [employer] Other Start: 05-28-2023 Telephone encounter Waqas Kari [facility] Start: 05-14-2023 ([facility] RD FU) [facility] F/ [employer] Grecia Carrera [facility] Start: 05-14-2023 End: 05-14-2023 ambulatory Grecia Carlt Other [employer] Other Start: 04-16-2023 ([facility] RD FU) [facility] F/ [employer] Grecia Carrera [facility] Start: 04-16-2023 End: 04-16-2023 ambulatory Grecia Fitt Other [employer] Other Start: 03-28-2023 ambulatory NON STAFF Facility:[facility] Start: 03-21-2023 End: 03-21-2023 ambulatory Waqas Pierce Other [employer] Other Start: 03-21-2023 Telephone encounter Waqas Kari [facility] Start: 02-22-2023 ambulatory MER MAYBERRY . Facil ity:H1 Start: 02-13-2023 End: 02-14-2023 ambulatory [facility] Facility[facility] Start: 01-31-2023 End: 01-31-2023 ambulatory Waqas Pierce Other [employer] Other Start: 01-31-2023 Telephone encounter Waqas Pierce [facility] [address] Start: 01-30-2023 End: 01-31-2023 ambulatory AMY Iverson [facility] Facility:[facility] Start: 01-19-2023 End: 01-20-[address] ROLANDO CASTELLANOS Facility:[facility] Start: 01-11-2023 [facility] Init ial Provider Grecia Carrera [facility] Start: 01-11-2023 End: 01-11-2023 ambulatory Grecia Carrera Other [employer] Other Start: 01-09-2023 End: 01-10-2023 ambulatory AMY Iverson [facility] Facility:[facility]1 Start: 12-25-2022 End: 12-25-2022 ambulatory Junior Begumafshan Other [employer] Other Start: 12-25-2022 Telephone encounter Junior King [facility] Start: 12-22-2022 End: 12-23-2022 ambulatory AMY Iverson [facility] Facility:[facility]1 Start: 12-18-2022 End: 12-18-2022 ambulatory Junior Mcgowan Other [employer] Other Start: 12-18-2022 Telephone encounter Junior DARNELL [facility] Start: 12-15-2022 End: 12-15-2022 ambulatory Waqas Pierce Other [employer] Other Start: 12-15-2022 Telephone encounter Waqas THAO [facility] Start: 12-12-2022 Telephone encounter Rolando Castellanos [facility] Start: 12-12-2022 End: 12-13-[address] WAQAS PIERCE [employer] Other Start: 12-06-2022 Telephone encounter Waqas Pierce [facility] Start: 12-06-2022 End: 12-07-2022 ambulatory Efrain CORTES [employer] Other Start: 12-01-2022 End: 12-02-[address] WAQAS PIERCE Facility: Start: 11-20-2022 End: 11-20-2022 ambulatory Rolando Castellanos Other [employer] Other Start: 11-20-2022 Telephone encounter Rolando Vasquez [facility] Start: 11-17-2022 Telephone encounter Waqas Pierce [facility] Start: 11-17-2022 End: 11-18-[address] WAQAS PIERCE [employer] Other Start: 11-16-2022 End: 11-16-2022 ambulatory Rolando Castellanos Other [employer] Other Start: 11-16-2022 Follow-up encounter Rolando dhillon [facility] Start: 11-14-2022 End: 11-14-2022 ambulatory Grecia Carrera Other [employer] Other Start: 11-14-2022 IBT FOR OBESITY GROU P 2-10 30M Grecia Carrera [facility] Start: 11-13-2022 End: 11-13-2022 ambulatory Waqas Pierce Other [employer] Other Start: 11-13-2022 Telephone encounter Waqas Pierce [facility] Start: 11-08-2022 End: 11-09-2022 ambulatory Efrain CORTES Facility: [place] Start: 11-08-2022 End: 11-08-2022 Patient encounter procedure Efrain CORTES General Surgery Nill/Said [place] Start: 11-06-2022 End: 11-07-[address] WAQAS PIERCE Facility:[facility] Start: 11-05-2022 Encounter for gynecological examination (general) (routine) without abnormal findings DR FRIEDA LOCKE . [facility] Start: 11-03-2022 End: 11-04-[address] WAQAS PIERCE Facility:[facility] Start: 10-30-2022 End: 10-31-[address] WAQAS PIERCE Facility:[facility] Start: 10-25-2022 End: 10-25-2022 ambulatory Waqas Pierce Other [employer] Other Start: 10-25-2022 Telephone encounter Waqas Pierce [facility] Start: 10-24-2022 End: 10-24-2022 ambulatory Rolando Castellanos Other [employer] Other Start: 10-24-2022 Telephone encounter Rolando dhillon [facility] Start: 10-23-2022 Office outpatient vi sit 15 minutes Waqas Pierce [facility] Start: 10-23-2022 Telephone encounter Waqas Pierce [facility] Start: 10-23-2022 End: 10-24-2022 ambulatory NON STAFF [facility] Work Phone: Start: 10-23-2022 End: 10-23-2022 Departed Referred [facility] [address] [place] Work Phone: Start: 10-20-2022 End: 10-20-2022 ambulatory Waqas Pierce Other [employer] Other Start: 10-20-2022 Telephone encounter Waqas Pierce [facility] Start: 10-17-2022 End: 10-18-[address] WAQAS PIERCE Facility:[facility]1 Start: 10-13-2022 End: 10-13-2022 ambulatory Rachel Vela Other [employer] Other Start: 10-13-2022 Nutrition therapy Rachel Dane [facility] Start: 10-13-2022 Telephone encounter Rachel Vela [facility] Start: 10-13-2022 Registered Recurring Fi [facility] Work Phone: Start: 10-10-2022 End: 10-11-[address] WAQAS PIERCE Facility:[facility] Start: 10-06-2022 End: 10-06-2022 ambulatory Waqas Pierce Other [employer] Other Start: 10-06-2022 Telephone encounter Waqas Pierce [facility] Start: 10-04-2022 (Procedure) Rayne Mcgowan [facility] Start: 10-04-2022 End: 10-04-2022 ambulatory Junior Mcgowan Other [employer] Other Start: 10-03-2022 End: 10-04-[address] WAQAS PIERCE [employer] Other Start: 10-03-2022 Telephone encounter Junior DARNELL [facility] [employer] [facility] Start: 09-27-2022 End: 09-27-2022 ambulatory Junior Mcgowan Other [employer] Other Start: 09-27-2022 Telephone encounter Junior DARNELL G [facility] Start: 09-19-2022 End: 09-20-[address] WAQAS PIERCE Facility:[facility]1 Start: 09-11-2022 End: 09-12-[address] WAQAS PIERCE Facility:[facility] Start: 09-06-2022 End: 09-06-2022 Patient encounter procedure [facility] Start: 09-06-2022 End: 09-06-2022 ambulatory NON STAFF [facility] Work Phone: Start: 09-06-2022 FQHC visit new patient David davalos II [facility] Start: 09-06-2022 End: 09-06-2022 ambulatory KIMBERLY AMADOR [facility] Start: 08-28-2022 End: 08-29-[address] WAQAS PIERCE Facility:[facility] Start: 08-18-2022 Adult health examination Grecia Carrera Other [employer] Other Start: 08-18-2022 Gynecological examination normal Grecia Fitt Other [employer] Other Start: 08-18-2022 End: 08-19-[address] [...] Encounter for other preprocedural examination AMY KASPER [facility] Start: 04-24-[address] WAQAS PIERCE [...] Pre-procedure evalua tion check Grecia Carrera Other [employer] Other Start: 07-25-2021 Office outpatient vi sit 15 minutes Mallory Yuen [facility] Start: 06-23-2021 Office outpatient vi sit 25 minutes Junior Mcgowan [facility] [place] [employer] [employer] Start: 06-23-2021 Telephone encounter Junior Mcgowan [facility] Start: 12-16-2020 End: 12-17-2020 ambulatory REFERRED SELF Facility:[facility] Procedures Date Procedure Procedure Detail Performing [...] Pierce Work Phone: Start: 08-28-2023 Antibody screen Comment on above: Order Comment: Date of Surgery: [id number] Result Comment: PERF ORMED BY: [facility] [place] [address] PATHOLOGIST CLOTH DYE RANGE OPERATOR SUAD ARREAGA M.D. Start: 08-28-2023 Urine culture MD Waqas Pierce Work Phone: Start: 08-15-2023 Plain X-ray of right hip MD Waqas Pierce Work Phone: Start: 10-23-2022 Urine culture Start: 09-06-2022 Plain X-ray of right hip Start: 04-24-2022 Excision of Left Tarsal, Open Approach DR WAQAS PIERCE Start: 04-24-2022 Insertion of Tissue Employee Communications Coordinator into Left Foot Subcutaneous Tissue and Fascia, [...] 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 Francis CORTES H/O: artificial joint Aftercare following joint replacement MD Waqas Pierce Work Phone: Inject trigger finger/thumb Efrain CORTES Laboratory test result abnormal Waqas Pierce Other Screening for malign ant neoplasm of breast Grecia Fitt Other Screening for osteoporosis D awn Fitt Other Tonsillectomy and adenoidectomy Efrain CORTES Plan of Treatment Date Care Activity Detail Author Start: 09-03-2023 Hospital admission [facility] Start: 09-03-2023 End: 09-03-2023 [facility] Start: 09-03-2023 Physical therapy procedure [facility] Start: 08-28-2023 [facility] Start: 08-28-2023 Bacteria identified in Urine by Culture [facility] aPTT in Platelet poo r plasma by Coagulation assay [facility] Bacteria identified in Urine by Culture [facility] CT Chest WO and W contrast IV [facility] XR Chest 2 Views [facility] XR Chest 2 Views [facility] Immunizations Immunization Date Immunization Notes Care Provider Fa cility 09-28-2023 COVID-19 (PFIZER) [id number] 12Y and older MD Waqas Pierce Work Phone: [facility] 09-28-2023 influenza, injectabl e, quadrivalent, preservative free MD Waqas Pierce Work Phone: [facility] 08-31-2022 COVID-19 (Pfizer) Bivalent Booster, Age 12Y+ [facility] 08-31-2022 influenza virus vaccine, unspecified formulation Efrain CORTES [facility] 08-31-2022 influenza, injectabl e, quadrivalent, preservative free MD Waqas Pierce Work Phone: [facility] 08-31-2022 SARS-CoV-2 (COVID-19 ) mRNAMUL.[id number] Efrain CORTES [facility] 02-24-2022 COVID-19 (Pfizer); Translations: [COVID-19 (Pfizer)] MD Waqas Pierce Work Phone: [facility] 02-24-2022 COVID-19 Comirnaty (Pfizer) Tri-Sucrose 12+ MD Waqas Pierce Work Phone: [facility] 02-24-2022 SARS-CoV-2 mRNA (xhldlityzyv-yqme-dadom se) vaccine Efrain NILSharan [facility] 11-20-2021 influenza, injectabl e, quadrivalent, preservative free MD Waqas Pierce Work Phone: [facility] 08-19-2021 COVID-19 (Pfizer) [facility] 08-19-2021 SARS-CoV-2 (COVID-19 ) mRNA BNT-162b2 vax Efrain HIMAL [facility] 01-19-2021 COVID-19 (Pfizer) [facility] 01-19-2021 SARS-CoV-2 (COVID-19 ) mRNA BNT-162b2 vax Efrain NILL [facility] 12-31-2020 COVID-19 (Pfizer) [facility] 12-31-2020 SARS-CoV-2 (COVID-19 ) mRNA BNT-162b2 vax Efrain RABAGOL [facility] 06-25-2020 influenza virus vaccine, split virus (incl. purified surface antigen) Grecia Carrera Other [facility] Other 06-25-2020 influenza virus vaccine, unspecified formulation [facility] 06-25-2020 influenza, injectabl e, quadrivalent, preservative free MD Waqas Pierce Work Phone: [facility] 06-25-2020 pneumococcal polysaccharide vaccine, 23 valent Grecia Carrera Other [facility] 07-30-2019 influenza, injectabl e, quadrivalent, contains preservative MD Waqas Pierce Work Phone: [facility] 07-12-2018 influenza, injectabl e, quadrivalent, preservative free MD Waqas Pierce Work Phone: [facility] 11-15-2016 influenza, injectabl e, quadrivalent, preservative free MD Waqas Pierce Work Phone: [facility] Payers Date Payer Category Payer Self-pay [id number] 1960 Unknown [id number] 2.16.840.1.054293.3.579.2.647 1960 Unknown [id number] 2.16.840.1.145479.3.579.2.727 1962 Unknown [id number] 2.16.840.1.923758.3.579.2.727 1962 Unknown [id number] 2.16.840.1.350381.3.579.2.593 1962 Unknown [id number] 2.16.840.1.101776.3.579.2.593 1962 Unknown [id number] 2.16.840.1.201849.3.579.2.593 1962 Unknown [id number] 2.16.840.1.257239.3.579.2.593 1962 Unknown [id number] 2.16.840.1.079220.3.579.2.593 1962 Unknown [id number] 2.16.840.1.043644.3.579.2.593 1962 Unknown [id number] 2.16.840.1.254353.3.579.2.593 1962 Unknown [id number] 2.16.840.1.275992.3.579.2.593 1962 Unknown [id number] 2.16.840.1.643666.3.579.2.593 1962 Unknown [id number] 2.16.840.1.996613.3.579.2.593 1962 Unknown [id number] 2.16.840.1.126711.3.579.2.593 1962 Unknown [id number] 2.16.840.1.050857.3.579.2.593 1962 Unknown [id number] 2.16.840.1.277248.3.579.2.593 1962 Unknown [id number] 2.16.840.1.119149.3.579.2.593 1962 Unknown [id number] 2.16.840.1.716942.3.579.2.593 1962 Unknown [id number] 2.16.840.1.484713.3.579.2.593 1962 Unknown [id number] 2.16.840.1.443889.3.579.2.593 1962 Unknown [id number] 2.16.840.1.955172.3.579.2.593 1962 Unknown [id number] 2.16.840.1.232848.3.579.2.593 1962 Unknown [id number] 2.16.840.1.049826.3.579.2.593 1962 Unknown [id number] 2.16.840.1.525514.3.579.2.593 1962 Unknown [id number] 2.16.840.1.351959.3.579.2.593 1962 Unknown [id number] 2.16.840.1.207175.3.579.2.593 1962 Unknown [id number] 2.16.840.1.206540.3.579.2.593 1962 Unknown [id number] 2.16.840.1.396970.3.579.2.593 1962 Unknown [id number] 2.16.840.1.798634.3.579.2.593 1962 Unknown [id number] 2.16.840.1.570823.3.579.2.593 1962 Unknown [id number] 2.16.840.1.606200.3.579.2.593 1962 Unknown [id number] 2.16.840.1.498296.3.579.2.593 1962 Unknown [id number] 2.16840.1.103378.3.579.2.593 1962 Unknown [id number] 2.16.840.1.808708.3.579.2.593 1962 Unknown [id number] 2.16.840.1.929797.3.579.2.593 1962 Unknown [id number] 2.16.840.1.806774.3.579.2.593 1962 Unknown [id number] 2.840.1.064048.3.579.2.593 1962 Unknown [id number] 2.16.840.1.071834.3.579.2.593 1962 Unknown [id number] 2.16.840.1.308866.3.579.2.593 1962 Unknown [id number] 2.16.840.1.498529.3.579.2.593 1962 Unknown [id number] 2.16.840.1.783208.3.579.2.593 1962 Unknown [id number] 2.16.840.1.106677.3.579.2.593 1962 Unknown [id number] 2.16.840.1.463778.3.579.2.593 1962 Unknown [id number] 2.16.840.1.998745.3.579.2.593 1962 Unknown [id number] 2.16.840.1.769787.3.579.2.593 1962 Unknown [id number] 2.16.840.1.022417.3.579.2.593 1959 Unknown [id number] 2.16. 840.1.295870.19 1959 Unknown [id number] Medicare Medicare [id number] Private Health Insurance [employer] [facility] 1 [id number] Unknown [id number] 2.840.1.852381.3.579.2.531 Unknown [id number] 2.16840.1.292957.3.579.2.531 Unknown [id number] 2.840.1.936522.3.579.2.531 Unknown [id number] 2.840.1.200494.3.579.2.531 Worker's Compensation [id number] Worker's Compensation [facility] [id number] Social History Date Type Detail Facility Unknown if ever smoked [facility] Other Sex Assigned At [facility] Start: 1960 Sex Assigned At Female [facility] Start: 11-08-2022 End: 01-03-2024 Tobacco smoking status Ex-smoker (finding) [facility] [place] Comment on above: smoked one year, souleymane t 30 years ago Tobacco smoking status Never [facility] [place] Comment on above: smoked one year, souleymane t 30 years ago Medical Equipment Procedure Code Equipment Code Equipment Origin al Text Equipment Identifier Dates Arthroplasty, hip, total, anterior approach Acetabular shell [id number] FDA Start: 09-03-2023 Arthroplasty, hip, total, anterior approach Ceramic femoral head prosthesis ()[id number] FDA Start: 09-03-2023 Arthroplasty, hip, total, anterior approach Coated hip femur prosthesis, modular ()[id number] FDA Start: 09-03-2023 Arthroplasty, hip, total, anterior approach Non-constrained polyethylene acetabular liner ()[id number] FDA Start: 09-03-2023 Start: 02-13-2023 Goals Date Patient Goal Desired Activity /State Functional Status Date Assessment Result Facility 11-08-2022 Functional Status N/A [facility] Clinical Notes 06-23-2021 to 01-03-2024 Note Date & Type Note Facility 01-03-2024 Evaluation note Authored January 03, 2024 11:39am Highest weight in program: 3 06.2. She is down 51.5 lbs. Start weight: 293.0 lbs. She is down 38.3lbs. today with a weight of 254.7 lbs she is down 7.9 lbs. since her last visit on 11/22/2023. Starting Date: 10/13/2022. Wegovy start date 01/17/2023. Wegovy start weight 306.2 pounds, she is down 51.5 lbs. Sample given. 1. Prediabetes most recent A1c of 5.4-mopjd-ooev treatment with long-term healthy lifestyle change, decreased [...] the gym and start with a personal health coach. She should consider pool therapy/ water therapy. She needs to try to keep her trigger foods out of the house. She is to try to find healthier desserts and she tends to like to have 1 after each meal. Lately her cravings for sweets have been decreased. She continues to work with our tool sharpener. She understands the need for preplanning, following the plate method, having healthy foods around, keeping unhealthy foods out of her house and eating healthy Whole Foods. She does not like to cook or prep. She understands that shopping, chopping and preplanning so that she can eat healthy foods is essential to her recovery. She will continue to work with our tool sharpener. We could consider Wellbutrin in the future [...] TSH with her PCP. Author Estephania Mao [facility] Authored February 21, 2024 10:30 am Highest weight in program: 3 06.2. She is down 36.1 lbs. Start weight: 293.0 lbs. She is down 22.9 lbs. today with a weight of 270.1 lbs she is up 15.4 lbs. since her last visit on 11/22/2023. Starting Date: 10/13/2022. Wegovy start date 01/17/2023. Wegovy start weight 306.2 pounds, she is down 36.1 lbs. Sample given. 1. Prediabetes most recent A1c of 5.0-mojnc-ravq treatment with long-term healthy lifestyle change, decreased [...] the gym and start with a personal health coach. She should consider pool therapy/ water therapy. She needs to try to keep her trigger foods out of the house. She is to try to find healthier desserts and she tends to like to have 1 after each meal. Lately her cravings for sweets have been decreased. She continues to work with our tool sharpener. She understands the need for preplanning, following the plate method, having healthy foods around, keeping unhealthy foods out of her house and eating healthy Whole Foods. She does not like to cook or prep. She understands that shopping, chopping and preplanning so that she can eat healthy foods is essential to her recovery. She will continue to work with our tool sharpener. We could consider Wellbutrin in the future [...] lab work and TSH with her PCP. [facility] Work Phone: 1(702) 175-579604-04-2024 Evaluation note* Author Rolando Castellanos [facility] Authored January 03, 2024 11:3 9am Highest [...] given. 1. Prediabetes most recent A1c of 5.8-xfprm-ckae treatment with long-term healthy lifestyle change, decreased [...] the gym and start with a personal health coach. She should consider pool therapy/ water therapy. She needs to try to keep her trigger foods out of the house. She is to try to find healthier desserts and she tends to like to have 1 after each meal. Lately her cravings for sweets have been decreased. She continues to work with our tool sharpener. She understands the need for preplanning, following the plate method, having healthy foods around, keeping unhealthy foods out of her house and eating healthy Whole Foods. She does not like to cook or prep. She understands that shopping, chopping and preplanning so that she can eat healthy foods is essential to her recovery. She will continue to work with our tool sharpener. We could consider Wellbutrin in the future [...] and TSH with [facility] PCP. [facility] February 21, 2024 10:49 am Highest weight in program: 3 06.2. She is down 36.1 lbs. Start weight: 293.0 lbs. She is down 22.9 lbs. today with a weight of 270.1 lbs she is up 15.4 lbs. since her last visit on 11/22/2023. Starting Date: 10/13/2022. Wegovy start date 01/17/2023. Wegovy start weight 306.2 pounds, she is down 36.1 lbs. Sample given. 1. Prediabetes most recent A1c of 5.5-pzdsj-ntrl treatment with long-term healthy lifestyle change, decreased simple sweets and refined starches, increased exercise and activity and long-term weight loss. She is intolerant metformin. Continue GLP-1 agonist. She needs close long- term follow-up for this condition to prevent diabetes. 2. Obesity-improved significantly with Mounjaro 2.5 mg samples and healthy lifestyle change, but with significant weight regain with being off medication. At this point we have to switch to Ozempic samples since Mounjaro samples not available. At this point she does not feel she can afford compounded semaglutide but may be able to in the future. She needs to consider bariatric surgery. Her activity has increased after her right hip replacement but she is still slowed by low back pain and bilateral foot issues. She would like to join the gym and start with a personal health coach. She should consider pool therapy/ water therapy. She needs to try to keep her trigger foods like chips and salty snacks out of the house. She needs to try to avoid eating fast foods/takeout foods and prepare her own healthy whole food meals and snacks. She is to try to find healthier desserts and she tends to like to have 1 after each meal. Lately her cravings for sweets have been decreased. She needs to continue to work closely with our custom tailor apprentice. She understands the need for preplanning, following the plate method, having healthy foods around, keeping unhealthy foods out of her house and eating healthy Whole Foods. She does not like to cook or prep. She understands that shopping, chopping and preplanning so that she can eat healthy foods is essential to her recovery. She will continue to work with our tool sharpener. We could consider Wellbutrin in the future [...] with significant weight loss of greater than 10% from her high weight in our program. Treat with healthy lifestyle changes and long-term [...] weight loss. Follow up with me in 6 weeks. New labs needed: Up-to-date. She will continue regular lab work and TSH with her PCP. [facility] Work Phone: 1(398) 140-274302-22-2024 Evaluation note* Author Rolando Castellanos [facility] Authored November 22, 2023 12:47pm Highest weight [...] given. 1. Prediabetes most recent A1c of 5.2-lmhss-lmsg treatment with long-term healthy lifestyle change, decreased [...] house. She continues to work with our tool sharpener. She understands the need for preplanning, following the plate method, having healthy foods around, keeping unhealthy foods out of her house and eating healthy Whole Foods. She does not like to cook or prep. She understands that shopping, chopping and preplanning so that she can eat healthy foods is essential to her recovery. She will continue to work with our tool sharpener. We could consider Wellbutrin in the future [...] lab work and TSH with her PCP. [facility] Work Phone: 1(687) 728-714302-22-2024 Evaluation note* Author Rolando Castellanos [facility] Authored November 22, 2023 12:47pm Highest weight [...] given. 1. Prediabetes most recent A1c of 5.1-lwrbr-gxpl treatment with long-term healthy lifestyle change, decreased [...] house. She continues to work with our tool sharpener. She understands the need for preplanning, following the plate method, having healthy foods around, keeping unhealthy foods out of her house and eating healthy Whole Foods. She does not like to cook or prep. She understands that shopping, chopping and preplanning so that she can eat healthy foods is essential to her recovery. She will continue to work with our tool sharpener. We could consider Wellbutrin in the future [...] TSH with her PCP. Author Estephania Mao [facility] Authored January 03, 2024 11:1 8am Highest [...] given. 1. Prediabetes most recent A1c of 5.7-ywjhv-xfjy treatment with long-term healthy lifestyle change, decreased [...] house. She continues to work with our tool sharpener. She understands the need for preplanning, following the plate method, having healthy foods around, keeping unhealthy foods out of her house and eating healthy Whole Foods. She does not like to cook or prep. She understands that shopping, chopping and preplanning so that she can eat healthy foods is essential to her recovery. She will continue to work with our tool sharpener. We could consider Wellbutrin in the future [...] lab work and TSH with her PCP. [facility] Work Phone: 1([phone]) 750-989202-22-2024 Evaluation note* Author Rolando Castellanos [facility] Authored November 22, 2023 12:47pm Highest weight [...] given. 1. Prediabetes most recent A1c of 5.1-tkadv-moya treatment with long-term healthy lifestyle change, decreased [...] house. She continues to work with our tool sharpener. She understands the need for preplanning, following the plate method, having healthy foods around, keeping unhealthy foods out of her house and eating healthy Whole Foods. She does not like to cook or prep. She understands that shopping, chopping and preplanning so that she can eat healthy foods is essential to her recovery. She will continue to work with our tool sharpener. We could consider Wellbutrin in the future [...] and TSH with her PCP. Author Rolando Castellanos [facility] Authored January 03, 2024 11:3 9am Highest [...] given. 1. Prediabetes most recent A1c of 5.8-lovsg-nxii treatment with long-term healthy lifestyle change, decreased [...] the gym and start with a personal health coach. She should consider pool therapy/ water therapy. She needs to try to keep her trigger foods out of the house. She is to try to find healthier desserts and she tends to like to have 1 after each meal. Lately her cravings for sweets have been decreased. She continues to work with our tool sharpener. She understands the need for preplanning, following the plate method, having healthy foods around, keeping unhealthy foods out of her house and eating healthy Whole Foods. She does not like to cook or prep. She understands that shopping, chopping and preplanning so that she can eat healthy foods is essential to her recovery. She will continue to work with our tool sharpener. We could consider Wellbutrin in the future [...] lab work and TSH with her PCP. [facility] Work Phone: [phone]) 585-302002-01-2024 Evaluation note* Encounter Date Diagnosis Assessment Notes Treatment Notes Treatment Clinical Notes Nov, Hypothyroidism (ICD-10 - E03.9) Pt due for labs - will recheck Nov, Elevated fasting glucose (ICD-10 - R73.01) Continue healthy diet and exercise as able. [facility] Other 01-17-2024 Evaluation note* Encounter Date Diagnosis Assessment Notes Treatment Notes Treatment Clinical Notes Oct, Aftercare following joint replacement surgery (ICD-10 - Z47.1) Oct, Presence of right artificial hip joint (ICD-10 - Z96.641) Oct, Other [facility] at [facility] on 09/03/2023 Doing well Patient may continue increasing activities as tolerated. Continue taking gdsd-btv-kiwcphb anti-inflammatorie s as needed for assistance with swelling and pain associated with the operative extremity. Follow-up in 6 weeks for repeat examination and repeat x-rays. [facility] Other 01-15-2024 Evaluation note* Encounter Date Diagnosis Assessment Notes Treatment Notes Treatment Clinical Notes Oct, Obesity (ICD-10 - E66.9) Oct, BMI 40.0-44.9, adult (ICD-10 - Z68.41) Oct, Other Summary of Visi t: (A) Discussed including more vegetables (B) Discussed plant proteins (C) Provided recipes [facility] Other 01-02-2024 Evaluation note* Encounter Date Diagnosis Assessment Notes Treatment Notes Treatment Clinical Notes Oct, Hypothyroidism (ICD-10 - E03.9) [facility] Other 12-20-2023 Evaluation note* Encounter Date Diagnosis [...] right artificial hip joint (ICD-10 - Z96.641) [facility] Other 12-19-2023 Evaluation note* Encounter Date Diagnosis [...] Aug, Metabolic syndrome X (ICD-10 - E88.81) [facility] Other 12-19-2023 Evaluation note* Author Rolando Castellanos [facility] Authored November 22, 2023 11:47am Highest weight [...] given. 1. Prediabetes most recent A1c of 5.8-dvzha-fopo treatment with long-term healthy lifestyle change, decreased [...] house. She continues to work with our tool sharpener. She understands the need for preplanning, following the plate method, having healthy foods around, keeping unhealthy foods out of her house and eating healthy Whole Foods. She does not like to cook or prep. She understands that shopping, chopping and preplanning so that she can eat healthy foods is essential to her recovery. She will continue to work with our tool sharpener. We could consider Wellbutrin in the future [...] lab work and TSH with her PCP. [facility] Work Phone: 1(571) 508-919012-18-2023 Evaluation note* Encounter Date Diagnosis Assessment Notes Treatment Notes Treatment Clinical Notes Aug, Obesity (ICD-10 - E66.9) Aug, BMI 40.0-44.9, adult (ICD-10 - Z68.41) Aug, Other Summary of Visi t: (A) Discussed including more vegetables (B) Answered general nutrition-related questions (C) DIscussed options for including more water [facility] Other 12-01-2023 Evaluation note* Encounter Date Diagnosis [...] patient could proceed with surgery safely. The build and release manager was vital for surgery timing and [...] plans. Prolonged services time spent: 31 minutes [facility] Other 11-30-2023 Evaluation note* Encounter Date Diagnosis Assessment Notes Treatment Notes Treatment Clinical Notes 30 Nov, 2023 Osteoarthritis of right hip (ICD-10 - M16.11) [...] therapy arrives. Joints Meeting Checklist - Pharmacy: [facility] to bed - Approach/Technique: anterior, [place] bed - Implants: Avenir Complete/G7; - Anesthesia: general vs spinal - Blocks: Fascia iliaca - Preop Antibiotics: Ancef and Vanco - TXA: yes-systemic - Positioning/OR Bed: supine on [place] bed - Intraop X-ray: yes - Alejandra: [...] above surgery. O[facility] report generated and reviewed. [facility] Other 11-21-2023 Evaluation note* Encounter Date Diagnosis [...] symptoms. Any developing patterns. Stay well hydrated. [facility] Other 11-13-2023 Evaluation note* Encounter Date Diagnosis Assessment Notes Treatment Notes Treatment Clinical Notes Aug, Obesity (ICD-10 - E66.9) Aug, BMI 40.0-44.9, adult (ICD-10 - Z68.41) Aug, Other Summary of Visi t: (A) Continue current regimen (B) Much emotional support provided today (C) Encouraged continued follow up with counselor [facility] Other 10-31-2023 Evaluation note* Encounter Date Diagnosis Assessment Notes Treatment Notes Treatment Clinical Notes Jul, Acute laryngitis (ICD-10 - J04.0) Patient denies bacterial infection symptoms such as fever facial pressure or chills. Patient has not taken a COVID test. Discussed nbmj-sgw-qfkklgc medications to use along with steroid pills that can improve her discomfort and laryngitis going forward. Advised that the steroids could elevate her blood sugar and to be mindful of that accordingly. [facility] Other 10-26-2023 Evaluation note* Encounter Date Diagnosis [...] Jul, Metabolic syndrome X (ICD-10 - E88.81) [facility] Other 10-26-2023 Evaluation note* Encounter Date Diagnosis Assessment Notes Treatment Notes Treatment Clinical Notes Jul, Other detention (current) drug therapy (ICD-10 - Z79.899) Jul, Other osteoporosis without current pathological fracture (ICD-10 - M81.8) Jul, Osteoarthritis of right hip (ICD-10 - M16.11) [facility] Other 10-23-2023 Evaluation note* Encounter Date Diagnosis Assessment Notes Treatment Notes Treatment Clinical Notes Jul, Obesity (ICD-10 - E66.9) Jul, BMI 40.0-44.9, adult (ICD-10 - Z68.41) Jul, Other Summary of Visi t: (A) Continue current regimen (B) Discussed ways to include more water (C) Discussed ways to include more vegetables [facility] Other 10-16-2023 NoteShe admits intermittent orthostasis when she is bending over working in the yard and upon standing she gets lightheaded and dizzy. Denies syncope and admits that she is chronically dehydrated and does not drink enough. Therefore recommended at least 2 L of water per day, can intermittently have electrolyte replacement drinks like Gatorade or Powerade or Pedialyte she [facility]-2023 NoteShe is working on weight loss with her PCP and machine stuffer.[facility] 07-16-2023 NoteStable with metoprolol 25 mg dailyUnGenesis [facility]10-16-2023 NoteContinue atorvastatin 20 mg Liver function normal, cholesterol and LDL levels well controlled in light she does not have CAD.[facility]10-16-2023 NoteUTP CARDIOLOGY PROGRESS NOTE HPI: Nicol [...] TABLET BY MOUTH TWICE DAILY NEEDED HYDROcodone-acetaminophen (Duarte) 5-325 mg tablet hydrocodone 5 mg-acetaminophen 325 [...] metoprolol 25 mg daily BMI 45.0-49.9, adult (CMS/[facility]) She is working on weight loss with her PCP and machine stuffer. Orthostasis She admits intermittent orthostasis when she is bending over working in the yard and upon standing she gets lightheaded an (more content not included)... [facility]10-16-[facility]23 NotePatient here c/o dizziness only with [...] All other systems reviewed and are negative.[facility] 06-27-2023 Evaluation note* Encounter Date Diagnosis [...] the patient works on weight loss management. [facility] Other 09-18-2023 Evaluation note* Encounter Date Diagnosis [...] meals available that fit the plate method [facility] Other 09-14-2023 Evaluation note* Encounter Date Diagnosis Assessment Notes Treatment Notes Treatment Clinical Notes Jun, Prediabetes (ICD-10 - R73.09) Jun, BMI 40.0-44.9, adult (ICD-10 - Z68.41) 14 Jun, 2023 Hypothyroidism (ICD-10 - E03.9) 14 Jun, 2023 Hypertension (ICD-10 - I10) 14 Jun, 2023 Fatty liver (ICD-10 - K76.0) 14 Jun, 2023 HERRERA (obstructive sleep apnea) (ICD-10 - G47.33) 14 Jun, 2023 Mixed hyperlipidemia (ICD-10 - E78.2) 14 Jun, 2023 Depression (ICD-10 - F32.9) 14 Jun, 2023 Low back derangement syndrome (ICD-10 - M53.86) Jun, Hip arthritis (ICD-1 0 - M16.10) Jun, Palpitations (ICD-10 - R00.2) Jun, GERD (gastroesophageal reflux disease) (ICD-10 - K21.9) Jun, Metabolic syndrome X (ICD-10 - E88.81) [facility] Other 09-11-2023 Evaluation note* Encounter Date Diagnosis [...] E55.9) discussed supplementation. will check D level. [facility] Other 08-28-2023 Evaluation note* Encounter Date Diagnosis Assessment Notes Treatment Notes Treatment Clinical Notes May, Hypothyroidism (ICD-10 - E03.9) [facility] Other 08-14-2023 Evaluation note* Encounter Date Diagnosis Assessment Notes Treatment Notes Treatment Clinical Notes May, Obesity (ICD-10 - E66.9) May, BMI 40.0-44.9, adult (ICD-10 - Z68.41) May, Other Summary of Visi t: (A) Discussed cooking various foods (B) Find control in indulgences (C) Reviewed the plate method [facility] Other 07-17-2023 Evaluation note* Encounter Date Diagnosis Assessment Notes Treatment Notes Treatment Clinical Notes Mar, Obesity (ICD-10 - E66.9) Mar, BMI 40.0-44.9, adult (ICD-10 - Z68.41) Mar, Other Summary of Visi t: (A) Discussed cooking various foods (B) Find control in indulgences (C) emphasize self-care [facility] Other 05-17-2023 NotePROCEDURE: XR FOOT LT MIN [...] Electronically authenticated by: ARIELA SCHWAB Date: 2023-02-14 06:48[facility]04-13-2023 Evaluation note* Encounter Date Diagnosis Assessment [...] 2. Increase veggies, follow the plate method [facility] Other 03-14-2023 Evaluation note* Encounter Date Diagnosis Assessment Notes Treatment Notes Treatment Clinical Notes Nov, Abnormal laboratory test result (ICD-10 - R89.9) [facility] Other 03-08-2023 NoteOPERATIVE NOTE OPERATION DATE: 12/06/2022 [...] 10 years. CC: Waqas Pierce M.D.[id number] Evaluation note* Encounter Date Diagnosis Assessment Notes [...] - M16.10) Nov, Hypertension (ICD-10 - I10) [facility] Other 02-14-2023 Evaluation note* Encounter Date Diagnosis [...] patient set personal goal using given handout. [facility] Other 02-08-2023 NoteChief Complaint consultation for colonoscopy [...] Years., 11/08/2022 Family History (more content not included)...[facility]Comment [facility]:Result Comment: Electronically Signed By: SOPHIA PINEDA, Efrain Layne\Date and Time Signed: 11/08/22 15:29 [id number] Evaluation note* Encounter Date Diagnosis Assessment Notes [...] - G47.33) presently compliant with machine, etc [facility] Other 01-13-2023 Evaluation note* Encounter Date Diagnosis [...] Patient is interested in meeting with our label tacker, telephone encounter started to connect with her [...] the week. Encouraged to take advantage of label tacker available at [facility] that can help work around limitations. She is open to meeting with our label tacker for guidance on exercises she can complete with her severe limitations from her foot, hip and back. Telephone encounter started. Oct, Plantar fasciitis (ICD-10 - M72.2) Oct, Arthritis of hip (ICD-10 - M16.10) Oct, Impaired fasting glucose (ICD-10 - R73.01) [facility] Other 12-07-2022 Evaluation note* Encounter Date Diagnosis [...] while she works on her weight loss. [facility] Other 12-07-2022 NoteUTP CARDIOLOGY PROGRESS NOTE HPI: [...] 1 TABLET BY MOUTH TWICE DAILY HYDROcodone-acetaminophen (Duarte) 5-325 mg tablet hydrocodone 5 mg-acetaminophen 325 [...] to cardiology as needed. This is reasonable.[facility]12-07-2022 NoteContinue lipitor [facility]12-07-2022 NoteContinue [facility]12-07-2022 NoteContinue [facility]11-18-2022 NotePROCEDURE: XR HIP RT 2 3V [...] Electronically authenticated by: SHAWNEE KELLY Date: 2022-08-18 15:54[facility]11-18-2022 NotePROCEDURE: XR FOOT LT MIN 3 [...] Electronically authenticated by: SHAWNEE KELLY Date: 2022-08-18 15:42[facility]09-16-2022 NotePROCEDURE: XR FOOT LT MIN 3 [...] Electronically authenticated by: SHAWNEE KELLY Date: 2022-06-16 16:24[facility]09-16-2022 NotePROCEDURE: XR FOOT LT MIN 3 [...] Electronically authenticated by: SHAWNEE KELLY Date: 2022-06-16 16:24[facility]08-11-2022 NotePROCEDURE: XR FOOT LT MIN 3 VIEWS COMPARISON: 04/24/2022 HISTORY: Pain in left foot FINDINGS: BONES:Stable postsurgical changes with subtalar fusion, medial midfoot hindfoot fusion and spacer at the first tarsometatarsal joint. No mechanical failure. Severe degenerative changes. SOFT TISSUES:Extensive soft tissue swelling.Dorsal woundvac EFFUSION:None visible. OTHER: Negative. IMPRESSION: Stable degenerative and post surgical changes Electronically authenticated by: SHAWNEE KELLY Date: 2022-05-11 17:16[facility]07-25-2022 NotePROCEDURE: XR FOOT LT MIN 3 [...] Electronically authenticated by: ARIELA SCHWAB Date: 2022-04-24 14:11[facility] [id number] NotePROCEDURE: XR FOOT LT 2V HISTORY: Pain [...] authenticated by: ARIELA SCHWAB Date: 2022-04-24 11:54[facility] [id number] NotePROCEDURE: XR FOOT LT MIN 3 VIEWS [...] authenticated by: ARIELA SCHWAB Date: 2022-04-22 20:52[facility] [id number] NotePROCEDURE: XR FOOT LT MIN 3 VIEWS [...] Electronically authenticated by: SHAWNEE KELLY Date: 2022-04-14 17:03[facility]10-25-2021 Evaluation note* Encounter Date Diagnosis Assessment [...] instructions given in writting by [facility] document. [facility] Other 09-23-2021 Evaluation note* Encounter Date Diagnosis [...] note writ ten by Safia Calderon CMA, [employer] Insurance Agent. Edited and approved by Dr. Junior Mcgowan MD. [facility] Other Evaluation + Plan note No data available for this section General Surgery [place] Evaluation noteNo InformationNort [facility] Other Evaluation noteNo assessment information available [facility] Work Phone: Evaluation note* Diagnosis Onset Date Resolution Status Change in voice acute Essential (primary) hypertension acute Family history of von Willebrand disease acute Hyperlipidemia acute Hypothyroidism acute [facility] Work Phone: History general Narrative - Reported* Type Description Date Medical History DDD (degenerative disc disease), lumbar Surgical History hip replacement Surgical History tonsillectomy Surgical History carpal tunnel release bilateral Hospitalization History see above [facility] Other History general Narrative - Reported* Type Description Date Medical History DDD (degenerative disc disease), lumbar Medical History spinal stenosis Surgical History hip replacement Surgical History tonsillectomy Surgical History carpal tunnel release bilateral Surgical History vein ablasion Hospitalization History see above [facility] Other History general Narrative - Reported* Type Description Date Medical History DDD (degenerative disc disease), lumbar Medical History spinal stenosis Surgical History hip replacement Surgical History tonsillectomy Surgical History carpal tunnel release bilateral Surgical History vein ablasion Surgical History skin graft left foot Hospitalization History see above [facility] Other Hisfyzv general Narrative - Reported* Type Description Date [...] x3 202 2 Hospitalization History see above [facility] Other Hisrsdj general Narrative - Reported* Type Description Date [...] HIp replacement 09/03/23 Hospitalization History see above [facility] Other Hospital Discharge instructions No data available for this section [facility] Discharge instructions Additional Instructions Joint Replacement Discharge Instructions Your safety during your recovery process is important to us. Please seek immediate emergency care if you have sudden chest pain or shortness of breath. Additionally, please call our office at [phone] should any of the following occur: wound [...] to walk without your walker and your insurance healthcare consultant until the therapist checks you the following [...] and/or laxatives as directed. You may take ctrr-qvp-kbkicno Benadryl if itching occurs without a rash or hives. Icing and elevation will help relieve pain as well, do not underestimate the power of ice and elevation. We do recommend that you stop taking narcotic pain medications by 4-6 weeks after surgery and if necessary, continue to use anti-inflammatory medications such as Mobic (meloxicam), Celebrex (celecoxib), or an jrnu-qnf-jjkwmeq medication (Aleve, Motrin, Ibuprofen, etc). Driving an [...] feel free to call our office at [phone]. You are a priority of ours and we will not be upset with you if you call. We would much rather you call to confirm aspects of your recovery process as opposed to possibly hindering your recovery with inappropriate care. We are committed to providing you with the best care possible. David Mcfarland II, MD Updated 12/15/2022[facility] Work Phone: Progress note No data available for this section General Surgery [place] Reason for referral (narrative)* Reason Appt: Diagnosis 1 Depression (F32.9) Referral Organization [facility] Referring Provider First Name Rolando Referring Provider Last Name Jasmin Referring Provider Specialty Internal Me dicine Referred Organization [facility] Natalia Referred Address [address] [place], [place],[address] Referred Provider Specialty Karina s Referral Priority Routine General Notes Anna Jose 2022 01:07:39 PM >Please contact patient to schedule. [facility] Other Summary Purpose Family History Relationship Condition [...] Unknown Hypertension Unknown brother Myocardial infarction Unknown Relationship Condition Age at Onset Recorded Date/T reyna father Diabetes mellitus Unknown Congestive heart failure Unknown mother Primary malignant ne oplasm of bone marrow Unknown Osteoarthritis Unknown Macular degeneration Unknown daughter Hypertension Unknown father Heart disease Unknown Unknown Diabetes mellitus Unknown mother Malignant neoplasm Unknown son Family history of mental disorder Unknown [...] RD WM f/u Sick-Did not test for [id number] Reason for Visit Sinusitis, acute max illary BMI 40.0-44.9, adult Fatty liver Hyperlipidemia Hypertension Pre-diabetes Aftercare following joint replacement Chest congestion Cough Chief Complaint Rd Wm F/U Obesity z47.[address] WM f/u Sinus infection WMN F/UP Z47.1 - Aftercare following joint replacement surg [address] WM f/u Sick-Did not test for [id number] Reason for Visit Sinusitis, acute max illary BMI 40.0-44.9, adult Fatty liver Hyperlipidemia Hypertension Pre-diabetes Aftercare following joint replacement Bronchitis Chest congestion Cough Chief Complaint Rd Wm F/U Obesity z47.[address] WM f/u BH Sinus infection WMN F/UP Z47.1 - Aftercare following joint replacement surg [address] WM f/u Sick-Did not test for [id number] RD WM f/u Reason for Visit Sinusitis, acute max illary BMI 40.0-44.9, adult Fatty liver Hyperlipidemia Hypertension Pre-diabetes Aftercare following joint replacement Bronchitis Chest congestion Cough BMI 40.0-44.9, adult Fatty liver Hyperlipidemia Pre-diabetes Chief Complaint z47.[address] WM f/u Sinus infection WMN F/UP Z47.1 - Aftercare following joint replacement surg [address] WM f/u Sick-Did not test for [id number] RD WM f/u Habit forming Reason for Visit Sinusitis, acute max illary BMI 40.0-44.9, adult Fatty liver Hyperlipidemia Hypertension Pre-diabetes Aftercare following joint replacement Bronchitis Chest congestion Cough BMI 40.0-44.9, adult Fatty liver Hyperlipidemia Pre-diabetes Chief Complaint Z47.1 - Aftercare fo llowing joint replacement surg [address] WM f/u Sick-Did not test for [id number] RD WM f/u Habit forming Reason for Visit Aftercare following joint replacement Bronchitis Chest congestion Cough BMI 40.0-44.9, adult Fatty liver Hyperlipidemia Pre-diabetes Chief Complaint RD WM f/u Sick-Did not test for [id number] RD WM f/u Habit forming Reason for Visit Bronchitis Chest congestion Cough BMI 40.0-44.9, adult Fatty liver Hyperlipidemia Pre-diabetes BMI 40.0-44.9, adult Fatty liver Hyperlipidemia Hypertension Pre-diabetes Chief Complaint RD WM f/u Chief Complaint RD WM f/u WELLNESS Reason for Visit Change in voice Essential (primary) hypertension Family history of von Willebrand disease Hyperlipidemia Hypothyroidism Additional Source Comments INFORMATION SOURCE (unrecogn ized section and content) DATE CREATED AUTHOR 04/29/2021 [facility] DATE CREATED AUTHOR AUTHOR'S ORGANIZ ATION 12/20/2022 [facility] DATE CREATED AUTHOR AUTHOR'S ORGANIZ ATION 03/09/2023 [facility] DATE CREATED AUTHOR AUTHOR'S ORGANIZ ATION 07/16/2023 [facility] DATE CREATED AUTHOR AUTHOR'S ORGANIZ ATION 03/03/2024 [facility] REASON FOR VISIT (unrecogniz ed section and [...] Pierce MD Primary Care Provider Active Start: May 23, 2024 End: May 23, 2024 KOBY Roberson Attending Provider Active S tart: May 23, 2024 End: May 23, 2024 Team Status: Active Member Role Status Dates NON STAFF Primary Care Provider Active Start: December 04, 2023 Marcin Grace MD Attending Provider Active Start: December 04, 2023 Team Status: Inactive Member Role Status Dates KOBY Roberson Attending Provider Active S tart: December 10, 2023 End: December 10, 2023 Waqas Pierce MD Primary Care Provider Active Start: December 10, 2023 End: December 10, 2023 Team Status: Inactive Member Role Status Dates Waqas Pierce MD Primary Care Provider Active Start: December 26, 2023 End: December 26, 2023 Carrie Bhakta APRN CANNERY TENDER ENGINEER-C Attending Provider Act pradeep Start: December 26, 2023 End: December 26, 2023 Team Status: Inactive Member Role Status Dates Waqas Pierce MD Primary Care Provider Active Start: January 03, 2024 End: January 03, 2024 Rolando Castellanos MD Attending Provider Active Start: January 03, 2024 End: January 03, 2024 Team Status: Inactive Member Role Status Dates Waqas Pierce MD Primary Care Provider Active Start: January 10, 2024 End: January 10, 2024 KOBY Roberson Attending Provider Active S tart: January 10, 2024 End: January 10, 2024 Team Status: Active Member Role Status Dates Waqas Pierce MD Primary Care Provide r, Attending Provider Active Start: January 11, 2024 Team Status: Inactive Member Role Status Dates Waqas Pierce MD Primary Care Provider Active Start: January 15, 2024 End: January 15, 2024 KOBY Diehl Attending Provider Active Start: January 15, 2024 End: January 15, 2024 Team Status: Inactive Member Role Status Dates Waqas Pierce MD Primary Care Provider Active Start: February 21, 2024 End: February 21, 2024 Rolando Castellanos MD Attending Provider Active Start: February 21, 2024 End: February 21, 2024 Team Status: Inactive Member Role Status Dates Grecia Pham [facility] Attending Provider Active Start: October 15, 2023 [...] Care Provider Active Start: October 23, 2023 Marcin Grace MD Attending Provider Active Start: October [...] 2023 End: November 28, 2023 Team Status: Active Member Role [...] Inactive Member Role Status Dates Grecia Pham [facility] Attending Provider Active Start: September 17, 2023 End: September 17, 2023 Team Status: Inactive Member Role Status Dates Rolando Castellanos MD Attending Provider Active Start: September 18, 2023 End: September 18, 2023 Team Status: Inactive Member Role Status Dates CHESTER Ortiz Attending Provider Active Start: September 19, 2023 End: September 19, 2023 Team Status: Active Member Role Status Dates NON STAFF Primary Care Provider Active Start: November 20, 2023 Marcin Grace MD Attending Provider Active Start: November 20, 2023 Team Status: Inactive Member Role Status Dates Waqas Pierce MD Primary Care Provide r, Attending Provider Active Start: June 16, 2024 End: June 16, 2024 Goals (unrecognized section and content) Goals [...] BE BASED ON THE PRIMARY CLINICAL RECORDS. [employer] [facility]. provides no warranty or guarantee of the accuracy or completeness of information in this document.
[2024-06-17 07:18] LABS: Basophils Absolute Auto 0.1 10^3/uL (0.0-0.1); Basophils Percent Auto 1.4 % (0.2-2.0); Eosinophils Absolute Auto 0.1 10^3/uL (0.0-0.7); Eosinophils Percent Auto 1.8 % (0.9-7.0); Hematocrit 33.7 % (36.0-48.0); Hemoglobin 9.8 g/dL (12.0-16.0); Lymphocytes Absolute Auto 1.9 10^3/uL (1.2-3.8); Lymphocytes Percent Auto 37.1 % (20.5-60.0); Mean Corpuscular HGB Conc 29.1 g/dL (29.9-35.2); Mean Corpuscular Hemoglobin 21.5 pg (26.7-34.0); Mean Corpuscular Volume 74.1 fL (81.0-99.0); Mean Platelet Volume 9.2 fL (9.5-13.5); Monocytes Absolute Auto 0.4 10^3/uL (0.3-0.8); Neutrophils Absolute Auto 2.6 10^3/uL (1.4-6.5); Neutrophils Percent Auto 51.7 % (43.0-75.0); Platelet Count 400 10^3/uL (150-450); Red Blood Count 4.55 10^6/uL (4.20-5.40); Red Cell Distribution Width 17.7 % (11.0-15.0)
[2024-06-17 07:32] LABS: INR 0.95; Partial Thromboplastin Time 26.5 sec (22.3-36.2); Prothrombin Time 10.1 sec (9.0-11.6)
[2024-06-17 08:19] LABS: Chol HDL Ratio 2.6; Cholesterol 171 mg/dL (<=200); HDL Cholesterol 66 mg/dL (40-60); Thyroid Stimulating Hormone 6.061 uIU/mL (0.358-3.740); Triglycerides 167 mg/dL (<=150); VLDL CHOLESTEROL 33.4 mg/dL
[2024-06-17 08:23] LABS: Free T4 0.78 ng/dL (0.76-1.46)
== END 2024-06-17 06:47 | disposition home or self-care (01) ==
LOC: LAB 06:47
PROVIDERS: PCP Family Medicine; Visit Provider Family Medicine
DX: E78.5 Hyperlipidemia, unspecified (principal); Z83.2 Family history of diseases of the blood and blood-forming organs and certain disorders involving the immune mechanism; E03.9 Hypothyroidism, unspecified; I10 Essential (primary) hypertension; R49.9 Unspecified voice and resonance disorder; K44.9 Diaphragmatic hernia without obstruction or gangrene
CPT/HCPCS: 36415; 71046; 80061; 84439; 84443; 85025; 85610; 85730

== ENCOUNTER 2024-07-15 07:46 | Outpatient (OUT) | payer MEDICARE, SELFPAY ==
[2024-07-15 15:30] LABS: Basophils Absolute Auto 0.1 10^3/uL (0.0-0.1); Basophils Percent Auto 1.5 % (0.2-2.0); Eosinophils Absolute Auto 0.1 10^3/uL (0.0-0.7); Hematocrit 38.2 % (36.0-48.0); Hemoglobin 11.2 g/dL (12.0-16.0); Immature Granulocytes Abs Auto 0.01 10^3/uL (0.00-0.03); Immature Granulocytes Pct Auto 0.2 % (0.0-0.5); Lymphocytes Absolute Auto 1.6 10^3/uL (1.2-3.8); Lymphocytes Percent Auto 28.8 % (20.5-60.0); Mean Corpuscular HGB Conc 29.3 g/dL (29.9-35.2); Mean Corpuscular Hemoglobin 22.7 pg (26.7-34.0); Mean Corpuscular Volume 77.5 fL (81.0-99.0); Mean Platelet Volume 9.5 fL (9.5-13.5); Monocytes Absolute Auto 0.3 10^3/uL (0.3-0.8); Monocytes Percent Auto 5.9 % (1.7-12.0); Neutrophils Absolute Auto 3.4 10^3/uL (1.4-6.5); Neutrophils Percent Auto 61.6 % (43.0-75.0); Platelet Count 412 10^3/uL (150-450); Red Cell Distribution Width 22.6 % (11.0-15.0); Reticulocyte Pct Auto 2.69 % (0.60-3.10); White Blood Count 5.5 10^3/uL (4.0-11.0)
[2024-07-15 15:35] LABS: Erythrocyte Sedimentation Rate 62 mm/hr (<=30)
[2024-07-15 15:41] LABS: Alanine Aminotransferase 28 U/L (14-59); Albumin Globulin Ratio 0.9; Albumin Level 3.6 g/dL (3.4-5.0); Alkaline Phosphatase 129 U/L (46-116); Anion Gap 16.5; Aspartate Amino Transferase 16 U/L (15-37); BUN Creatinine Ratio 18.8; Bilirubin Total 0.3 mg/dL (0.2-1.0); C Reactive Protein <0.50 mg/dL (<=0.50); Calcium 9.4 mg/dL (8.5-10.1); Carbon Dioxide 23.5 mmol/L (21.0-32.0); Chloride 107 mmol/L (98-107); Estimated GFR (African America >60 (>=60 mL/min/1.73m^2); Estimated GFR (Non-African Ame 59 (>=60 mL/min/1.73m^2); Globulin 3.9 g/dL; Glucose 170 mg/dL (74-106); Lactate Dehydrogenase 205 U/L (81-234); Sodium 143 mmol/L (136-145); Total Protein 7.5 g/dL (6.4-8.2)
[2024-07-15 15:55] LABS: Red Blood Count 4.93 10^6/uL (4.20-5.40)
[2024-07-15 15:56] LABS: Percent Iron Saturation 3.7 %
[2024-07-17 07:11] LABS: Vitamin B12 619 pg/mL (232-1245)
[2024-07-17 15:10] LABS: Albumin 3.7 g/dL (2.9-4.4); Alpha-1-Globulin 0.3 g/dL (0.0-0.4); Alpha-2-Globulin 0.9 g/dL (0.4-1.0); Gamma Globulin 0.9 g/dL (0.4-1.8); Immunoglobulin A, Qn, Serum 117 mg/dL (87-352); Immunoglobulin G, Qn, Serum 938 mg/dL (586-1602); Immunoglobulin M, Qn, Serum 43 mg/dL (26-217)
== END 2024-07-29 07:46 | disposition home or self-care (01) ==
PROVIDERS: PCP Family Medicine; Visit Provider Internal Medicine Hematology & Oncology
DX: G47.33 Obstructive sleep apnea (adult) (pediatric) (principal); D64.9 Anemia, unspecified; D50.9 Iron deficiency anemia, unspecified; K90.9 Intestinal malabsorption, unspecified
CPT/HCPCS: 36415; 80053; 82607; 82728; 82746; 82784; 83540; 83550; 83615; 84155; 84165; 85025; 85045; 85652; 86140; 86334; 95811; G0463

== ENCOUNTER 2024-07-15 19:48 | Outpatient (OUT) | payer MEDICARE, SELFPAY ==
--- OUTSIDE RECORDS SUMMARY | 2024-07-15 19:51 | XMS_ITS | CCD ---
Author Organization [facility] Care Team Providers Care Statistician Mathematical Name Role Phone SELF, REFERRED Referring Unavailable DAVID LR Admitting Unavailable DAVID LR Attending Unavailable WAQAS PIERCE Primary Care Unavailable DAVID LR Surgeon Unavailable [facility] Procedure Practitioner Unavailab JUDSON Martinez Surgeon Unavailable [facility] Procedure Practitioner Unavailab Junior Peterson Unavailable Mallory Yuen Unavailable NON STAFF Primary Care Provider UnavailMD David Merritt II Attending Provider David Mcfarland II Unavailable [phone] MD Waqas Pierce Primary Care Provider [phone] MD Waqas Pierce Attending Provider [phone] WAQAS PIERCE Primary Care Physician Waqas Pierce [...] Primary Care Unavailable AMY KASPER Attending Unavailable ALTAMONT, DR SHAWNEE James Consulting Unavailable AMY KASPER [...] Attending Unavailable HIGHLANDER, AMY D Admitting Unavailable RYANALEX Mendez Consulting Unavailable [...] MD David Mcfarland II Attending Provider [phone] MD David Mcfarland II Attending Provider MD Waqas Pierce Primary Care Provider NON STAFF Primary Care Provider UnavailMD Marcin Chambers Attending Provider [phone] MD Marcin Grace Attending Provider MD David Mcfarland II Attending Provider MD Waqas Pierce Primary Care Provider [phone] MD David Mcfarland II Attending Provider NON STAFF Primary Care Provider UnavailMD Marcin Chambers Attending Provider [phone] NON STAFF Primary Care Unavailable Marcin Grace Attending Unavailab Marcin Ramos Admitting Unavailab le [place] II, David Gordillo Admitting Unavailabl e [place] II, David Gordillo Attending Unavailabl e Waqas Pierce Primary Care Unavailable NON STAFF Primary Care Unavailable [place] II, David Gordillo Admitting Unavailabl e [place] II, David Gordillo Attending Unavailabl e NON STAFF Primary Care Unavailable [place] II, David Gordillo Attending Unavailabl e Bartolo II, David Gordillo Admitting Unavailabl e [place] II, David Gordillo Admitting Unavailabl e Bartolo II, David Gordillo Attending UnavailWqaas Dumont Primary Care Unavailable NON STAFF Primary Care Unavailable [place] II, David Gordillo Admitting Unavailabl e [place] II, David Gordillo Attending Unavailabl e NON STAFF Primary Care Unavailable Bartolo II, David Gordillo Attending Unavailabl e [place] II, David Gordillo Admitting Unavailabl e NON STAFF Primary Care Unavailable [place] II, David Gordillo Attending Unavailabl e [place] II, David Gordillo Admitting Unavailabl e Allergies Allergy Classification Reported Allergen(s) Allergy Type Date of Onset Reaction(s) Facility metFORMIN (1 source) metFORMIN; Translations: [METFORMIN] Drug Allergy 12-17-19 [facility] Penicillins (antibiotic) (1 source) Penicillin Drug Allergy 03-11-20 18 [facility] Serotonin (1 source) Serotonin; Translations: [SEROTONIN] Drug Allergy 12-17-19 21 [facility] (20 sources) Penicillin G Drug Allergy 11-01-19 24 [facility] (20 sources) CYMBOLTA Propensity to adverse reactions temporary blindness and couldnt feel herself breathing [employer] Other (20 sources) DULoxetine; Translations: [duloxetine] Drug Allergy 09-05-20 22 Impairment level of vision (disorder) [facility] [place] (20 sources) metFORMIN; Translations: [metformin] Drug Allergy 09-05-20 22 Abdominal mass (finding) [facility] [place] (20 sources) Penicillin; Translations: [penicillin] Drug Allergy 08-08-20 13 Eruption of skin (disorder) [facility] [place] (1 source) DULoxetine Drug Allergy [facility] (1 source) metFORMIN Drug Allergy [facility] (17 sources) Penicillins; Translations: [PENICILLINS] Drug allergy (disorder) 10-01-19 00 Rash [facility] (20 sources) Rx Essentials Antidepressant *HEMATOPOIETIC AGENTS Propensity to adverse reactions Comment:[facility] [employer] Other (3 sources) Allergies Reconciled Propensity to adverse reactions 08-17-20 21 Unknown [employer] Other (20 sources) Substance with penicillin structure and antibacterial mechanism of action (substance) Drug allergy Unknown [employer] Other (20 sources) Substance with serotonin re-uptake inhibitor mechanism of action (substance) Drug allergy 09-04-20 12 SEROTONIN HCL [facility] [employer] Other (3 sources) patient allergy list reviewed by nurse or physicia Propensity to adverse reactions 12-09-19 14 Comment:Done [employer] Other (15 sources) Serotonin Drug Allergy 08-28-20 23 temporary blindness, couldn't feel self breath [facility] (12 sources) Rx Essentials Antidepressant * Allergy to substance 11-01-19 24 Comment:[facility] (1 source) DULoxetine Drug Allergy 08-28-20 23 [facility] Repository (1 source) metFORMIN Drug Allergy 08-28-20 23 [facility] (1 source) Penicillins Drug allergy (disorder) 08-28-20 23 [facility] Repository Medications Current Medications Medication Drug Class(es) [...] DISCHARGE DOS: 09/03/23 Aug, Active Tylenol Active [id number] 200 actuat albuterol 0.09 mg/actuat metered dose inhaler (13 sources) beta2-Adrenergic Agonist Start: 05-08-2024 take 2 [...] Ordered docusate sodium 50 mg / sennosides, residential 8.6 mg oral tablet (12 sources) Start: [...] Once a day Active polyethylene glycol 3350 10261 mg powder for oral solution (12 sources) [...] (1999) (3 sources) take 1 capsule by [facility] once daily Vitamin D 50 MCG [...] Not-Taking/PRN doxycycline monohydrate 100 mg oral capsule (12 sources) Tetracycline-class Drug Start: 12-26-2023 End: 02-21-2024 take 100 mg by mouth twice daily Doxycycline Monohydrate Discontinued 100 MG PO Twice daily 20 07December 26, 2023 12:00am February 21, 2024 10:19am Start: 10-19-2019 take 1 capsule by [facility] every twelve hours Doxycycline Monohydrate 100 [...] mg / trimethoprim 160 mg oral tablet (11 sources) Dihydrofolate Reductase Inhibitor Antibacterial, Sulfonamide Antimicrobial Start: 11-21-2023 End: 12-26-2023 take 1 tablet by mouth twice daily Sulfamethoxazole- Trimethoprim Discontinued 1 TAB PO Twice daily November 21, 2023 1:00am December 26, 2023 8:55am Tirzepatide (20 sources) Start: 02-21-2024 End: 02-21-2024 Tirzepatide (Mounjaro) [...] Episodic Chronic obstructive pulmonary disease and bronchiectasis (13 sources) Bronchitis; Translations: [Bronchitis, not specified as acute or chronic] 12-26-2023 Episodic Chronic ulcer of skin (11 sources) Non-pressure chronic ulcer of left heel and midfoot with fat layer exposed; Translations: [Non-pressure chronic ulcer of left heel and midfoot with necrosis of bone] Onset: 2 Chronic Coagulation and hemorrhagic disorders (1 source) Finding related to bruising; Translations: [Spontaneous ecchymoses] 06-17-2024 Episodic Coma; stupor; and brain damage (20 sources) [...] replacement] Chronic Other aftercare (2 sources) Other long term acute care registered nurse (current) drug therapy; Translations: [OTH [facility] CURRENT DRUG THERAPY] Onset: 3 Episodic Other circulatory disease (3 sources) Elevated blood-pressure reading without diagnosis of hypertension; Translations: [Elevated blood-pressure reading, without diagnosis of hypertension] Episodic Other circulatory disease (9 sources) Pulmonary congestion ; Translations: [Other specified [...] unspecified] 12-26-2023 Episodic Other lower respiratory disease (11 sources) Solitary nodule of lung; Translations: [Solitary [...] Onset: 8 Chronic Other upper respiratory disease (2 sources) Change in voice; Translations: [Unspecified voice and resonance disorder] 06-16-2024 Episodic Other upper respiratory disease (2 sources) Unspecified voice and resonance disorder; Translations: [Other voice and resonance disorders] 06-16-2024 Episodic Other upper respiratory infections (3 sources) Chronic sinusitis; Translations: [Chronic sinusitis, unspecified] Chronic Other upper respiratory infections (18 sources) Acute maxillary sinusitis; Translations: [Acute maxillary [...] Translations: [Tobacco use] Episodic Residual codes; unclassified (2 sources) Family history of Von Willebrand disease; Translations: [Family history of diseases of the blood and blood-forming organs and certain disorders involving the immune mechanism] 06-16-2024 Episodic Residual codes; unclassified (2 sources) Family history of diseases of the blood [...] and structure, left ankle and foot; Translations: [[facility] D/O BONE DEN STRUCT LT ANK FOOT] [...] Test Name Value Interpretation Reference Range Facility Activated partial thrombopla stin time (aPTT) in platelet poor plasma by coagulation aon 06-17-2024 aPTT Coag (PPP) [Time] 26.5 s 22.3-36.2 [facility] Basophils Auto (Bld) [#/Vol] on 06-17-2024 Basophils (Bld) [#/Vol] 0.1 10 3/uL 0.0-0.1 [facility] Basophils/100 WBC Auto (Bld) on 06-17-2024 Basophils/100 WBC (Bld) 1.4 % 0.2-2.0 [facility] Cholesterol in LDL Calc [Mas s/Vol]on 06-17-2024 Cholesterol in LDL [Mass/Vol] 72.0 mg/dL [facility] Comment on above: <100 mg/dl [id number] 0-129 mg/dl NEAR OR ABOVE [id number] mg/dl BORDERLINE [id number] mg/dl HIGH>190 mg/dl VERY HIGH Cholesterol in VLDL Calc [Ma ss/Vol]on 06-17-2024 Cholesterol in VLDL [Mass/Vol] 33.4 mg/dL [facility] Eosinophils/100 WBC Auto (Bl d)on 06-17-2024 Eosinophils/100 WBC (Bld) 1.8 % 0.9-7.0 [facility] Erythrocyte distribution wid th Auto (RBC) [Ratio]on 06-17-2024 Erythrocyte distribution width (RBC) [Ratio] 17.7 % High 11.0-15.0 [facility] Hematocrit Auto (Bld) [Volum e fraction]on 06-17-2024 Hematocrit (Bld) [Volume fraction] 33.7 % Low 36.0-48.0 [facility] Hemoglobin [Mass/volume] in Bloodon 06-17-2024 Hemoglobin (Bld) [Mass/Vol] 9.8 g/dL Low 12.0-16.0 [facility] INR in Platelet poor plasma by Coagulation assayon 06-17-2024 INR Coag (PPP) [Relative time] 0.95 {INR} [facility] Comment on above: DESIRED INR:2.0-3.0 CONDITIONS NOT LISTED BELOW2.5-3.5 FOR PROSTHETIC HEART VALVE REPLACEMENT2.5-3.5 RECURRENT THROMBOSIS Laboratory - Chemistry and C hemistry - challengeon 06-17-2024 Cholesterol [Mass/Vol] 171 mg/dL <=200 [facility] Cholesterol in HDL [Mass/Vol] 66 mg/dL High 40-60 [facility] Comment on above: > or =60 mg/dl - LOW CARDIOVASCULAR RISK<40 mg/dl - HIGH CARDIOVASCULAR RISK Free T4 [Mass/Vol] 0.78 ng/dL 0.76-1.46 [facility] Triglyceride [Mass/Vol] 167 mg/dL High <=150 [facility] TSH Qn 6.061 m[IU]/L High 0.358-3.74 0 [facility] Laboratory - Hematology and Cell countson 06-17-2024 Immature granulocytes/100 WBC (Bld) 0.0 % 0.0-0.5 [facility] Leukocytes [#/volume] correc janell for nucleated erythrocytes in Blood by Automated counon 06-17-2024 WBC corrected for nucl RBC Auto (Bld) [#/Vol] 5.0 10 3/uL 4.0-11.0 [facility] Lymphocytes Auto (Bld) [#/Vo l]on 06-17-2024 Lymphocytes (Bld) [#/Vol] 1.9 10 3/uL 1.2-3.8 [facility] Lymphocytes/100 WBC Auto (Bl d)on 06-17-2024 Lymphocytes/100 WBC (Bld) 37.1 % 20.5-60.0 [facility] MCH Auto (RBC) [Entitic mass ]on 06-17-2024 MCH (RBC) [Entitic mass] 21.5 pg Low 26.7-34.0 [facility] MCHC Auto (RBC) [Mass/Vol]on 06-17-2024 MCHC (RBC) [Mass/Vol] 29.1 g/dL Low 29.9-35.2 [facility] MCV Auto (RBC) [Entitic vol] on 06-17-2024 MCV (RBC) [Entitic vol] 74.1 fL Low 81.0-99.0 [facility] Monocytes Auto (Bld) [#/Vol] on 06-17-2024 Monocytes (Bld) [#/Vol] 0.4 10 3/uL 0.3-0.8 [facility] Monocytes/100 WBC Auto (Bld) on 06-17-2024 Monocytes/100 WBC (Bld) 8.0 % 1.7-12.0 [facility] Neutrophils Auto (Bld) [#/Vo l]on 06-17-2024 Neutrophils (Bld) [#/Vol] 2.6 10 3/uL 1.4-6.5 [facility] Neutrophils/100 WBC Auto (Bl d)on 06-17-2024 Neutrophils/100 WBC (Bld) 51.7 % 43.0-75.0 [facility] No Panel Informationon 06-17 Eosinophils # (Auto) 0.1 10 3/uL 0.0-0.7 [facility] Immature Granulocyte # (Auto) 0.00 10 3/uL 0.00-0.03 [facility] Platelet mean volume Auto (B ld) [Entitic vol]on 06-17-2024 Platelet mean volume (Bld) [Entitic vol] 9.2 fL Low 9.5-13.5 [facility] Platelets Auto (Bld) [#/Vol] on 06-17-2024 Platelets (Bld) [#/Vol] 400 10 3/uL 150-450 [facility] Prothrombin time (PT)on 06-01 PT Coag (PPP) [Time] 10.1 s 9.0-11.6 [facility] RBC Auto (Bld) [#/Vol]on RBC (Bld) [#/Vol] 4.55 10 6/uL 4.20-5.40 [facility] Serum or plasma total choles terol/high density lipoprotein (HDL) cholesterol mass bridget 06-17-2024 Cholesterol.total/Cho lesterol in HDL [Mass ratio] 2.6 {ratio} [facility] Comment on above: 3.3 - 4.4 LOW RISK4. 4 - 7.1 AVERAGE RISK7.1 - 11.0 MODERATE RISK>11.0 HIGH RISK Estimated glomerular filtrat ion rate (GFR) non- Americanon 01-11-2024 GFR/1.73 sq M.predicted among non-blacks MDRD (S/P/Bld) [Vol rate/Area] mL/min/{1.73_m2} >=60 [facility] Laboratory - Chemistry and C hemistry - challengeon 01-11-2024 Creatinine [Mass/Vol] 0.85 mg/dL 0.55-1.02 [facility] GFR/1.73 sq M.predicted MDRD (S/P/Bld) [Vol rate/Area] mL/min/{1.73_m2} >=60 [facility] XR hip RT min 2V(w/wo pelvis )*on 11-28-2023 XR hip RT min 2V(w/wo pelvis)* [place] [address] XRay Report Signed Patient: Nicol Smith MR#: [id number] 9 : 1960 Acct:[id number] Age/Sex: 63 / F ADM Date: 11/28/23 [place]: [facility] [place]: Type: [facility] Attending Dr: David Mcfarland II, MD Copies [...] 1305 Signed By: 11/28/23 1306 Normal [facility] XR hip RT min 2V(w/wo pelvis )*on 10-17-2023 XR hip RT min 2V(w/wo pelvis)* [place] [address] XRay Report Signed Patient: Nicol Smith MR#: [id number] 9 : 1960 Acct:[id number] Age/Sex: 63 / F ADM Date: 10/17/23 [facility]: [facility] [place]: Type: [facility] Attending Dr: David Mcfarland II, MD Copies [...] 3:39 PM Dictation Location: RADIO-PC-12 Transcribed By: PWS 10/17/23 1539 Dictated By: Kane Katz DO 10/17/23 1538 Signed By: 10/17/23 153 Normal [facility] XR hip RT min 2V(w/wo pelvis)* [facility] [employer] Other XR hip RT min 2V(w/wo pelvis)* [facility] [employer] Other XR hip RT min 2V(w/wo pelvis)* [address] [facility] [employer] Other XR hip RT min 2V(w/wo pelvis)* DARSHAN [place] [address] [employer] Other XR hip RT min 2V(w/wo pelvis)* XRay Report [employer] Other XR hip RT min 2V(w/wo pelvis)* Signed [employer] Other XR hip RT min 2V(w/wo pelvis)* Patient: Nicol Smith MR#: [id number] [employer] Other XR hip RT min 2V(w/wo pelvis)* 9 [employer] Other XR hip RT min 2V(w/wo pelvis)* : 1960 Acct:[id number] [employer] Other XR hip RT min 2V(w/wo pelvis)* Age/Sex: 63 / F ADM Date: 10/17/23 [employer] Other XR hip RT min 2V(w/wo pelvis)* [place] [facility] [place]: Type[facility] [employer] Other XR hip RT min 2V(w/wo pelvis)* Attending Dr: David Mcfarland II, MD [employer] Other XR hip RT min 2V(w/wo pelvis)* Copies to: David Mcfarland MD [employer] Other XR hip RT min 2V(w/wo pelvis)* Ordering Provider: David Mcfarland MD [employer] Other XR hip RT min 2V(w/wo pelvis)* Date of Service: 10/17/23 [employer] Other XR hip RT min 2V(w/wo pelvis)* XR/XR hip RT min 2V(w/wo pelvis)*: Aftercare following joint replacement [employer] Other XR hip RT min 2V(w/wo pelvis)* surgery;Presence of ri [employer] [employer] Other XR hip RT min 2V(w/wo pelvis)* 2 views right hip with single view pelvis plain film [employer] Other XR hip RT min 2V(w/wo pelvis)* COMPARISON: 09/03/2023 [facility] Other XR hip RT min 2V(w/wo pelvis)* HISTORY: Status post right total hip arthroplasty [employer] Other XR hip RT min 2V(w/wo pelvis)* ACUTE FINDINGS: None [employer] Other XR hip RT min 2V(w/wo pelvis)* DEGENERATIVE CHANGE: Unremarkable [employer] Other XR hip RT min 2V(w/wo pelvis)* SOFT TISSUE FINDINGS: Unremarkable [employer] Other XR hip RT min 2V(w/wo pelvis)* JOINT EFFUSION: None [employer] Other XR hip RT min 2V(w/wo pelvis)* POSTOP CHANGES: Stable bilateral hip arthroplasties. [employer] Other XR hip RT min 2V(w/wo pelvis)* BONY MINERALIZATION: Adequate [employer] Other XR hip RT min 2V(w/wo pelvis)* XR/XR hip RT min 2V(w/wo pelvis)* [employer] Other XR hip RT min 2V(w/wo pelvis)* IMPRESSION: Stable right hip arthroplasty. [employer] Other XR hip RT min 2V(w/wo pelvis)* Impression dictated by: Kane Katz M.D.10/17/2023 3:39 PM [employer] Other XR hip RT min 2V(w/wo pelvis)* Dictation Location: RADIO-PC-12 [employer] Other XR hip RT min 2V(w/wo pelvis)* Transcribed By: PWS 10/17/23 1353 [employer] Other XR hip RT min 2V(w/wo pelvis)* Dictated By: Kane Katz DO 10/17/23 0608 [employer] Other XR hip RT min 2V(w/wo pelvis)* Signed By: [employer] Other XR hip RT min 2V(w/wo pelvis)* 10/17/23 7147 [employer] Other ABO/Rh Retypeon 09-03-2023 ABO/RH Recheck Result Positive Normal [facility] Comment on above: Result Comment: PERF ORMED BY: [facility] [address] [place] [address] PATHOLOGIST FISHING HAND SUAD Killian 09-03-2023 L ------ Specimen: [id number] Received: 09/03/23 Status: GRACIELA Chavez Num: [id number] Spec Type: Surgical Subm Dr: David Mcfarland MD Tissues: A Femoral Head - Other than Fracture (RT HIP) Procedures: HE/2, Gross/Micro L3, Decalcification Age/ Patient Sex Location Account Attending Physician Nicol Smith 63/F [place] [id number] David Mcfarland MD SPEC NUM: [id number] RECD: 09/03/23 STATUS: GRACIELA CHAVEZ NUM: [id number] SABRINA: 09/03/23 [facility] DR: David Mcfarland MD ENTERED: 09/03/[address] [facility] [address]: BEATRICE TYPE: Surgical DEPT: S ORDERED: [...] is taken. Gross examination only. CPT Codes 39600 Specimen: [id number] Received: 09/03/23 Status: GRACIELA Chavez Num: [id number] Spec Type: Surgical Subm Dr: David Mcfarland MD Tissues: A Femoral Head - Other than Fracture (RT HIP) Procedures: HE/2, Gross/Micro L3, Decalcification Patient: Nicol Smith [id number] (Continued) Specimen: [id number] Received: 09/03/23 (Continued) Signed (signature on file) Dez Núñez MD 09/07/23 1345 Specimen: [id number] Received: 09/03/23 Status: GRACIELA Chavez Num: [id number] Spec Type: Surgical Subm Dr: David Mcfarland MD Tissues: A Femoral Head - Other than Fracture (RT HIP) Procedures: HE/2, Gross/Micro L3, Decalcification Patient: Nicol Smith [id number] (Continued) Specimen: [id number] Received: 09/03/23 (Continued) Maikol Photo Specimen: [id number] Received: 09/03/23 Status: GRACIELA Chavez Num: [id number] Spec Type: Surgical Subm Dr: David Mcfarladn MD Tissues: A Femoral Head - Other than Fracture (RT HIP) Procedures: HE/2, Gross/Micro L3, Decalcification Patient: Nicol Smith [id number] (Continued) Signed (signature on file) Dez Núñez MD 09/07/23 1345 Normal [facility] XR low pelvis w/RT x-table h ipon 09-03-2023 XR low pelvis w/RT x-table hip [place] [address] XRay Report Signed Patient: Nicol Smith MR#: [id number] 9 : 1960 Acct:[id number] Age/Sex: 63 / F ADM Date: 09/03/23 Loc: [place] Room: Type: [facility] Attending Dr: David Mcfarland II, MD Copies to: David Mcfarland MD Ordering Provider: David Mcfarland MD Date of Service: 09/03/23 XR/XR low pelvis w/RT x-table hip: Total Hip, due in PACU ([id number]) XR/XR hip RT 1V: ANTERIOR HIP IN [...] Anna Hull M.D.09/03/2023 11:53 AM Dictation Location: [place] [address] Transcribed By: [facility] 09/03/23 1153 Dictated By: Anna Hull MD 09/03/23 1150 Signed By: 09/03/23 1153 Normal [facility] Automated basophil %Ordered By: David Mcfarland on 08-28-2023 Basophils/100 WBC (Bld) 1.1 % Normal . [facility] Comment on above: Performed By: #### C HOPE BMP #### [address] #### FRUC #### [facility] , Automated basophil countOrde red By: David Mcfarland on 08-28-2023 Basophils (Bld) [#/Vol] 0.1 10*3/uL Normal 0.0-0.2 [facility] Comment on above: Result Comment: PERF ORMED BY: [place] [address] PATHOLOGIST FISHING HAND SUAD ARREAGA M.D. Performed By: #### C HOPE BMP #### [place] [address] [place] #### FRUC #### [facility] , Automated blood monocyte cou ntOrdered By: David Mcfarland on 08-28-2023 Monocytes (Bld) [#/Vol] 0.5 10*3/uL Normal 0.0-0.8 [facility] Comment on above: Performed By: #### C BC, BMP #### [facility] [address] [place] [address] [place] #### FRUC #### [facility] , Automated eosinophil %Ordere d By: David Mcfarland on 08-28-2023 Eosinophils/100 WBC (Bld) 1.0 % Normal . [facility] Comment on above: Performed By: #### C BC, BMP #### [place] [address] [place] #### FRUC #### [facility] , Automated eosinophil countOr dered By: David Mcfarland on 08-28-2023 Eosinophils (Bld) [#/Vol] 0.1 10*3/uL Normal 0.0-0.45 [facility] Comment on above: Performed By: #### C BC, BMP #### [place] [address] [place] #### FRUC #### [facility] , Automated erythrocytes count in urine sediment (number/area)Ordered By: David Mcfarland on 08-28-2023 RBC Auto (Urine sed) [#/Area] 1-2 [HPF] 0-4 [facility] Automated leukocytes count i n urine sediment (number/area)Ordered By: David Mcfarland on 08-28-2023 WBC Auto (Urine sed) [#/Area] 10-19 [HPF] 0-4 [facility] Automated monocyte %Ordered By: David Mcfarland on 08-28-2023 Monocytes/100 WBC (Bld) 7.6 % Normal . [facility] Comment on above: Performed By: #### C BC, BMP #### [place] [address] [place] #### FRUC #### [facility] , Automated neutrophil %Ordere d By: David Mcfarland on 08-28-2023 Neutrophils/100 WBC (Bld) 65.0 % Normal . [facility] Comment on above: Performed By: #### C BC, BMP #### [place] [address] [place] #### FRUC #### [facility] , Automated urine color determ inationOrdered By: David Mcfarland on 08-28-2023 Color (U) Yellow Normal Yellow [facility] Comment on above: Order Comment: Name Collection Type:: Clean-Voided Midstream Performed By: #### A DDONUAPLUS, CUU #### [address] Basic Metabolic Panelon 08-02 GFR/1.73 sq M.predicted MDRD (S/P/Bld) [Vol rate/Area] mL/min/{1.73_m2} Normal [facility] Comment on above: Performed By: #### C HOPE, BMP #### [address] #### FRUC #### [facility] , Bilirubin Test strip Ql (U)O rdered By: David Mcfarland on 08-28-2023 Bilirubin Ql (U) Negative Negative [facility] Calcium [Mass/volume] in Ser um or PlasmaOrdered By: David Mcfarland on 08-28-2023 Calcium [Mass/Vol] 9.7 mg/dL Normal 8.6-10.3 [facility] Comment on above: Result Comment: PERF ORMED BY: [place] [address] PATHOLOGIST FISHING HAND SUAD ARREAGA M.D. Performed By: #### C BC, BMP #### [place] [address] [place] #### FRUC #### [facility] , Carbon dioxide, total [Moles /volume] in Serum or PlasmaOrdered By: David Mcfarland on 08-28-2023 CO2 [Moles/Vol] 26.1 mmol/L Normal 21.0-31.0 [facility] Comment on above: Performed By: #### C BC, BMP #### [facility] [address] [place] [address] [place] #### FRUC #### [facility] , Chloride [Moles/volume] in S adela or PlasmaOrdered By: David Mcfarland on 08-28-2023 Chloride [Moles/Vol] 107 mmol/L Normal 98-107 [facility] Comment on above: Performed By: #### C BC, BMP #### [facility] [address] [place] [address] [place] #### FRUC #### [facility] , Complete Blood Count Auto Di ffon 08-28-2023 Mean Corpuscular HGB Conc 32.1 g/dL Normal 32.0-35.0 [facility] Comment on above: Performed By: #### C BC, BMP #### [facility] [address] [place] [address] [place] #### FRUC #### [facility] , NRBC% 0.1 /100{WBC} Normal 0-0.5 [facility] Comment on above: Performed By: #### C BC, BMP #### [facility] [address] [place] [address] [place] #### FRUC #### [facility] , Creatinine [Mass/volume] in Serum or PlasmaOrdered By: David Mcfarland on 08-28-2023 Creatinine [Mass/Vol] 0.96 mg/dL Normal 0.60-1.20 [facility] Comment on above: Performed By: #### C BC, BMP #### [facility] [address] [place] [address] [place] #### FRUC #### [facility] , Dipstick and Microscopicon 1 10-28-2022 Appearance (U) Clear Normal Clear [facility] Comment on above: Order Comment: Name Collection Type:: Clean-Voided Midstream Performed By: #### A DDONUAPLUS, CUU #### [address] Bacteria,Urine None Seen Normal None Seen [facility] Comment on above: Order Comment: Name Collection Type:: Clean-Voided Midstream Performed By: #### A DDONUAPLUS, CUU #### [address] Bilirubin,Urine Negative Normal Negative [facility] Comment on above: Order Comment: Name Collection Type:: Clean-Voided Midstream Performed By: #### A DDONUAPLUS, CUU #### [address] Glucose Ql (U) Normal Normal Normal [facility] Comment on above: Order Comment: Name Collection Type:: Clean-Voided Midstream Performed By: #### A DDONUAPLUS, CUU #### [address] Hyaline Casts,Urine 0-8 Normal 0-8 [facility] Comment on above: Order Comment: Name Collection Type:: Clean-Voided Midstream Result Comment: PERF ORMED BY: [place] [address] PATHOLOGIST FISHING HAND SUAD ARREAGA M.D. Performed By: #### A DDONUAPLUS, CUU #### [address] Ketones Ql (U) Negative Normal Negative [facility] Comment on above: Order Comment: Name Collection Type:: Clean-Voided Midstream Performed By: #### A DDONUAPLUS, CUU #### [address] Leukocyte esterase Test strip Ql (U) 3+ High Negative [facility] Comment on above: Order Comment: Name Collection Type:: Clean-Voided Midstream Performed By: #### A DDONUAPLUS, CUU #### [address] Nitrite,Urine Negative Normal Negative [facility] Comment on above: Order Comment: Name Collection Type:: Clean-Voided Midstream Performed By: #### A DDONUAPLUS, CUU #### [address] Occult Blood,Urine Negative Normal Negative [facility] Comment on above: Order Comment: Name Collection Type:: Clean-Voided Midstream Result Comment: PERF ORMED BY: [place] [address] PATHOLOGIST FISHING HAND SUAD ARREAGA M.D. Performed By: #### A DDONUAPLUS, CUU #### [address] Protein,Urine Negative Normal Negative [facility] Comment on above: Order Comment: Name Collection Type:: Clean-Voided Midstream Performed By: #### A DDONUAPLUS, CUU #### [address] RBC,Urine 1-2 Normal 0-4 [facility] Comment on above: Order Comment: Name Collection Type:: Clean-Voided Midstream Performed By: #### A DDONUAPLUS, CUU #### [address] Specificy [place],Urine 1.020 Normal 1.001-1.03 0 [facility] Comment on above: Order Comment: Name Collection Type:: Clean-Voided Midstream Performed By: #### A DDONUAPLUS, CUU #### [place] [address] [place] Squamous Epithelial Cell,Urine 3-4 High 0-2 [facility] Comment on above: Order Comment: Name Collection Type:: Clean-Voided Midstream Performed By: #### A DDONUAPLUS, CUU #### [address] Urobilinogen,Urine Normal Normal Normal [facility] Comment on above: Order Comment: Name Collection Type:: Clean-Voided Midstream Performed By: #### A DDONUAPLUS, CUU #### [address] WBC,Urine 10-19 High 0-4 [facility] Comment on above: Order Comment: Name Collection Type:: Clean-Voided Midstream Performed By: #### A DDONUAPLUS, CUU #### [address] ECG 12 lead ECGon 08-28-2023 ECG 12 lead ECG [facility] [address] [place] [address] Electrocardiograph Report Signed Patient: Nicol Smith MR#: [id number] 9 : 1960 Acct:[id number] Age/Sex: 63 / F ADM Date: 08/28/23 Loc: Room: Type: [facility] Attending Dr: David Mcfarland II, MD Ordering [...] previous ECGs available Confirmed by NAHID PINEDA [facility] Anderson ([id number]) on 08/28/2023 10:26:43 PM Referred By: BARTOLO Electronically Signed By:KAMARI MANN MD [facility] Transcribed By: GILDA Signed By Jonathan Mann MD 08/28/232225 Normal [facility] Erythrocyte distribution wid th [Ratio] by Automated countOrdered By: David Mcfarland on 08-28-2023 Erythrocyte distribution width (RBC) [Ratio] 17.5 % High 11.9-15.3 [facility] Comment on above: Performed By: #### C BC, BMP #### [place] [address] [place] #### FRUC #### [facility] , Erythrocytes [#/volume] in B lood by Automated countOrdered By: David Mcfarland on 08-28-2023 RBC (Bld) [#/Vol] 4.74 10*6/uL Normal 3.60-5.00 [facility] Comment on above: Performed By: #### C BC, BMP #### [place] [address] [place] #### FRUC #### [facility] , Fructosamineon 08-28-2023 Fructosamine 205 umol/L Normal 0-285 [facility] Comment on above: Result Comment: Publ ished reference interval for apparently healthy subjects between age 20 and 60 is 205 - 285 umol/L and in a poorly controlled diabetic population is 228 - 563 umol/L with a mean of 396 umol/L. Performed at: [facility] [address] [place], [place] [id number] Scale Clerk: Luis Mukherjee PhD, Phone: [phone] PERFORMED BY: [place] [address] PATHOLOGIST FISHING HAND SUAD ARREAGA M.D. Performed By: #### C BC, BMP #### [address] #### FRUC #### [facility] , Fructosamine [Moles/volume] in Serum or PlasmaOrdered By: David Mcfarland on 08-28-2023 Fructosamine [Moles/Vol] 205 umol/L 0-285 [facility] Comment on above: Published reference interval for apparently healthysubjects between age 20 and 60 is 205 - 285 umol/L and in apoorly controlled diabetic population is 228 - 563 umol/Lwith a mean of 396 umol/L.Performed at: [facility] [address] [place], [place] [id number] Director: Luis Mukherjee PhD, Phone: [phone] Glucose [Mass/volume] in Ser um or PlasmaOrdered By: David Mcfarland on 08-28-2023 Glucose [Mass/Vol] 98 mg/dL Normal 70-100 [facility] Comment on above: ADA recommended refe rence rangeRandom Glucose Reference Range is dependent on time and content of last meal. Glucose of more than 200 mg/dL in a nonstressed, ambulatory subject supports the diagnosis of Diabetes Mellitus. Result Comment: [place] om Glucose Reference Range is dependent on time and content of last meal. Glucose of more than 200 mg/dL in a nonstressed, ambulatory subject supports the diagnosis of Diabetes Mellitus. ADA recommended reference range Performed By: #### C BC, BMP #### [place] [address] [place] #### FRUC #### [facility] , Hematocrit [Volume Fraction] of Blood by Automated countOrdered By: David Mcfarland on 08-28-2023 Hematocrit (Bld) [Volume fraction] 36.9 % Normal 34.0-46.4 [facility] Comment on above: Performed By: #### C BC, BMP #### [place] [address] [place] #### FRUC #### [facility] , Hemoglobin [Mass/volume] in BloodOrdered By: David Mcfarland on 08-28-2023 Hemoglobin (Bld) [Mass/Vol] 11.9 g/dL Normal 11.8-15.4 [facility] Comment on above: Performed By: #### C BC, BMP #### [place] [address] [place] #### FRUC #### [facility] , Ketones Auto test strip (U) [Mass/Vol]Ordered By: David Mcfarland on 08-28-2023 Ketones (U) [Mass/Vol] Negative Negative [facility] Laboratory - UrinalysisOrder ed By: David Mcfarland on 08-28-2023 Hyaline casts LM Ql (Urine sed) 0-8 [LPF] 0-8 [facility] Leukocytes [#/volume] correc janell for nucleated erythrocytes in Blood by Automated counOrdered By: David Mcfarland on 08-28-2023 WBC corrected for nucl RBC Auto (Bld) [#/Vol] 6.4 10*3/uL 3.8-11.6 [facility] Leukocytes [#/volume] in Blo od by Automated countOrdered By: David Mcfarland on 08-28-2023 WBC (Bld) [#/Vol] 6.4 10*3/uL Normal 3.8-11.6 [facility] Comment on above: Performed By: #### C BC, BMP #### [place] [address] [place] #### FRUC #### [facility] , Lymphocytes [#/volume] in Bl ood by Automated countOrdered By: David Mcfarland on 08-28-2023 Lymphocytes (Bld) [#/Vol] 1.6 10*3/uL Normal 1.00-4.8 [facility] Comment on above: Performed By: #### C BC, BMP #### [place] [address] [place] #### FRUC #### [facility] , Lymphocytes/100 leukocytes i n Blood by Automated countOrdered By: David Mcfarland on 08-28-2023 Lymphocytes/100 WBC (Bld) 25.3 % Normal . [facility] Comment on above: Performed By: #### C BC, BMP #### [place] [address] [place] #### FRUC #### [facility] , MCH [Entitic mass] by Automa janell countOrdered By: David Mcfarland on 08-28-2023 MCH (RBC) [Entitic mass] 25.0 pg Normal 24.7-34.3 [facility] Comment on above: Performed By: #### C BC, BMP #### [place] [address] [place] #### FRUC #### [facility] , MCHC Auto (RBC) [Mass/Vol]Or dered By: David Mcfarland on 08-28-2023 MCHC (RBC) [Mass/Vol] 32.1 g/dL 32.0-35.0 [facility] MCV [Entitic volume] by Auto mated countOrdered By: David Mcfarland on 08-28-2023 MCV (RBC) [Entitic vol] 78.0 fL Low 80-100 [facility] Comment on above: Performed By: #### C BC, BMP #### [facility] [address] [place] [address] [place] #### FRUC #### [facility] , Neutrophils [#/volume] in Bl ood by Automated countOrdered By: David Mcfarland on 08-28-2023 Neutrophils (Bld) [#/Vol] 4.2 10*3/uL Normal 1.8-7.7 [facility] Comment on above: Performed By: #### C BC, BMP #### [facility] [address] [place] [address] [place] #### FRUC #### [facility] , Nitrite Test strip Ql (U)Ord ered By: David Mcfarland on 08-28-2023 Nitrite Ql (U) Negative Negative [facility] No Panel InformationOrdered By: David Mcfarland on 08-28-2023 Estimated GFR (CKD-EPI) > 60.0 mL/Min [facility] Creatinine Clearance (Chem N/A [facility] Nucleated erythrocytes [Pres ence] in Blood by Automated countOrdered By: David Mcfarland on 08-28-2023 Nucleated RBC Auto Ql (Bld) 0.1 /100{WBC} 0-0.5 [facility] PST Type and Screenon 2022 ABO and Rh group Nom (Bld) Blood group B Rh(D) positive Normal [facility] Comment on above: Order Comment: Date of Surgery: [id number] Platelet mean volume [Entiti c volume] in Blood by Automated countOrdered By: David Mcfarland on 08-28-2023 Platelet mean volume (Bld) [Entitic vol] 8.0 fL Normal 6.3-10.7 [facility] Comment on above: Performed By: #### C BC, BMP #### [facility] [address] [place] [address] [place] #### FRUC #### [facility] , Platelets [#/volume] in Bloo d by Automated countOrdered By: David Mcfarland on 08-28-2023 Platelets (Bld) [#/Vol] 387 10*3/uL Normal 150-450 [facility] Comment on above: Performed By: #### C BC, BMP #### [place] [address] [place] #### FRUC #### [facility] , Potassium [Moles/volume] in Serum or PlasmaOrdered By: David Mcfarland on 08-28-2023 Potassium [Moles/Vol] 4.2 mmol/L Normal 3.5-5.1 [facility] Comment on above: Performed By: #### C BC, BMP #### [facility] [address] [place] [address] [place] #### FRUC #### [facility] , Protein Auto test strip (U) [Mass/Vol]Ordered By: David Mcfarland on 08-28-2023 Protein (U) [Mass/Vol] Negative Negative [facility] Serum or plasma anion gap de terminationOrdered By: David Mcfarland on 08-28-2023 Anion gap [Moles/Vol] 11.1 mmol/L Normal 6.0-15.0 [facility] Comment on above: Performed By: #### C BC, BMP #### [facility] [address] [place] [address] [place] #### FRUC #### [facility] , Sodium [Moles/volume] in Ser um or PlasmaOrdered By: David Mcfarland on 08-28-2023 Sodium [Moles/Vol] 140 mmol/L Normal 136-145 [facility] Comment on above: Performed By: #### C BC, BMP #### [facility] [address] [place] [address] #### FRUC #### [facility] , Specific gravity Auto test s trip (U) [Rel density]Ordered By: David Mcfarland on 08-28-2023 Specific gravity (U) [Rel density] 1.020 1.001-1.03 0 [facility] Squamous epithelial cells de tection in urine sediment by light microscopyOrdered By: David Mcfarland on 08-28-2023 Epithelial cells.squamous LM Ql (Urine sed) 3-4 [HPF] 0-2 [facility] Urea nitrogen [Mass/volume] in Serum or PlasmaOrdered By: David Mcfarland on 08-28-2023 Urea nitrogen [Mass/Vol] 17 mg/dL Normal 7-25 [facility] Comment on above: Performed By: #### C BC, BMP #### [facility] [address] [place] [address] #### FRUC #### [facility] , Urine Cultureon 08-28-2023 Bacteria identified Cx Nom (U) 50,000 colonies/ml mixed bacterial skin contaminants 2 Days PERFORMED BY: [place] [address] PATHOLOGIST FISHING HAND SUAD ARREAGA M.D. Normal [facility] Comment on above: Performed By: #### A DDONUAPLUS, CUU ####[facility] [address] [place] [address] Urine bacteria detection by automated methodOrdered By: David Mcfarland on 08-28-2023 Bacteria Auto Ql (U) None seen None Seen [facility] Urine clarity by refractomet ry automatedOrdered By: David Mcfarland on 08-28-2023 Clarity Refractometry automated (U) Clear Clear [facility] Urine culture routineOrdered By: David Mcfarland on 08-28-2023 Bacteria identified Cx Nom (U) 2 Days [facility] Urine glucose measurement by automated test strip (mass/volume)Ordered By: David Mcfarland on 08-28-2023 Glucose Auto test strip (U) [Mass/Vol] Normal mg/dL Normal [facility] Urine hemoglobin detection b y automated test stripOrdered By: David Mcfarland on 08-28-2023 Hemoglobin Auto test strip Ql (U) Negative Negative [facility] Urine leukocyte esterase det ection by automated test stripOrdered By: David Mcfarland on 08-28-2023 Leukocyte esterase Auto test strip Ql (U) 3+ Negative [facility] Urine pH measurement by auto mated test stripOrdered By: David Mcfarland on 08-28-2023 pH (U) 5.5 [pH] Normal 5.0-9.0 [facility] Comment on above: Order Comment: Name Collection Type:: Clean-Voided Midstream Performed By: #### A DDONUAPLUS, CUU #### [address] Urobilinogen Auto test strip (U) [Mass/Vol]Ordered By: David Mcfarland on 08-28-2023 Urobilinogen (U) [Mass/Vol] Normal mg/dL Normal [facility] XR hip RT min 2V(w/wo pelvis )*on 08-15-2023 XR hip RT min 2V(w/wo pelvis)* [facility] [address] [place] [address] XRay Report Signed Patient: Nicol Smith MR#: [id number] 9 : 1960 Acct:[id number] Age/Sex: 63 / F ADM Date: 08/15/23 [place]: [facility] [place]: Type: [facility] Attending Dr: David Mcfarland II, MD Copies [...] PROCESS.. Impression dictated by: Stalin Matamoros Jr., DMiguelOMiguel08/15/2023 4:18 PM Dictation Location: [place] [address] Transcribed By: [facility] 08/15/231617 Dictated By: Stalin Matamoros Jr, DO 08/15/231616 Signed By: 08/15/231617 Normal [facility] Office Visiton 07-16-2023 Follow-up visit [id number] Nicol Smith 1960 F Date Provider Department Center 07/16/2023 120-MARJORIE, KIMBERLY [facility] Family History Problem Relation Age of Onset Diabetes Father Heart failure Father Diabetes Paternal Grandmother Diabetes Paternal Grandfather Family Status - Relation Status Age at Father Paternal Grandmother Paternal Grandfather Level of Service:89008 [place] OFFICE/OUTPATIENT ESTABLISHED MOD MDM 30-39 MIN Normal [facility] TSHon 01-19-2023 TSH 5.502 uIU/mL Critically high 0.358-3.74 0 [facility] Comment on above: Performed By: #### T SH ####[facility] [address] [place] [address]Dr. Darrick Nash GTT 2 HRon 12-12-2022 Glucose [Mass/Vol] 117 mg/dL Critically high 74-106 [facility] Comment on above: Performed By: #### G TT2 ####[facility] [address] [place] [address]Dr. Adryyakov Cao Glucose [Mass/Vol] 227 mg/dL Normal [facility] Comment on above: Performed By: #### G TT2 ####[facility] [address] [place] [address]Dr. Darrick Cao Glucose [Mass/Vol] 121 mg/dL Normal [facility] Comment on above: Performed By: #### G TT2 ####[facility] [address] [place] [address]Dr. Darrick Cao TSHon 12-12-2022 TSH 6.852 uIU/mL Critically high 0.358-3.74 0 [facility] Comment on above: Performed By: #### P OCGLUC #### [facility] [address] [place] [address] [address] Darrick Cao Outside Colonoscopyon 2022 Outside Colonoscopy [id number]#[id number]:127 [facility] Reminderson 12-07-2022 Reminders - From: Yu Waters LPN To: N - Clinical; Sent: 12/07/2022 08:47:38 EST Show up: 11/08/2032 07:00:00 EST Subject: colonoscopy recall Due Date/Time: 12/06/2032 07:00:00 EST Reminder/Recall Patient is due for screening colonoscopy 12/06/2032. [facility] Consent for Procedure/Surger yon 11-09-2022 Consent for Procedure/Surgery [id number]:127 [facility] Consent for Procedure/Surgery [id number]:127 [facility] Facesheeton 11-09-2022 Facesheet [id number]:127 [facility] Ambulatory Visit Summaryon 0 11-08-2022 Ambulatory [...] Screening for malignant neoplasm of colon Normal [facility] MG MAMM SCREEN 3D BONNIE CADon 11-03-2022 MG MAMM SCREEN 3D BONNIE CAD Patient: NICOL SMITH Exam Date: 11/03/2022 : 1960 Gender:F Ordering : DR FRIEDA LOCKE . Admission #: [id number] Family : Order #: [id number] CLICK HERE TO VIEW EXAM RADIOLOGY REPORT [...] uterine cancer at age 52. LOCATION: [facility] BREAST COMPOSITION: Scattered areas fibroglandular density. [...] Kelly MD on 11/03/2022 at 11:04 Normal [facility] XR DEXA BONE DENSITYon 11-03 XR [...] by: ARIELA SCHWAB Date: 2022-11-03 11:11 Normal [facility] Comprehensive Metabolic Pane yuli 10-30-2022 Urea nitrogen [Mass/Vol] 20 mg/dL [employer] Other Comprehensive Metabolic Panel [employer] Other Comprehensive Metabolic Panel >60 [employer] Other Comprehensive Metabolic Panel 4.2 [employer] Other Albumin [Mass/Vol] 3.7 g/dL Normal 3.4-5.0 [employer] Other Comment on above: Performed By: #### T SH, CMP, LIPID ####[facility] [address] [place] [id number]. Darrick Cao Albumin/Globulin [Mass ratio] 0.9 {ratio} Normal [facility] [employer] Other Comment on above: Performed By: #### T SH, CMP, LIPID ####[facility] [address] [place] [address]Dr. Darrick Cao ALP [Catalytic activity/Vol] 112 U/L Normal 46-116 [facility] [employer] Other Comment on above: Performed By: #### T SH, CMP, LIPID ####[facility] [address] [place], [place] [address]Dr. Darrick Cao ALT [Catalytic activity/Vol] 34 U/L Normal 14-59 [employer] Other Comment on above: Performed By: #### T SH, CMP, LIPID ####[facility] [address] [place] [id number]. Darrick Cao AST [Catalytic activity/Vol] 17 U/L Normal 15-37 [facility] [employer] Other Comment on above: Performed By: #### T SH, CMP, LIPID ####[facility] [address] [place], [place] [address]Dr. Darrick Cao Bilirubin [Mass/Vol] 0.4 mg/dL Normal 0.2-1.0 [facility] [employer] Other Comment on above: Performed By: #### T SH, CMP, LIPID ####[facility] [address] [place], [place] [address]Dr. Darrick Cao Calcium [Mass/Vol] 9.2 mg/dL Normal 8.5-10.1 [facility] [employer] Other Comment on above: Performed By: #### T SH, CMP, LIPID ####[facility] [address] [place] [address]Dr. Darrick Cao Chloride [Moles/Vol] 105 mmol/L Normal 98-107 [facility] [employer] Other Comment on above: Performed By: #### T SH, CMP, LIPID ####[facility] [address] [place] [address]Dr. Darrick Cao CO2 [Moles/Vol] 27.0 mmol/L Normal 21.0-32.0 [facility] [employer] Other Comment on above: Performed By: #### T SH, CMP, LIPID ####[facility] [address] [place] [address]Dr. Darrick Cao Creatinine [Mass/Vol] 0.86 mg/dL Normal 0.55-1.02 [facility] [employer] Other Comment on above: Performed By: #### T JASON, CMP, LIPID ####[facility] [address] [place] [address]Dr. Darrick Cao Glucose [Mass/Vol] 114 mg/dL Critically high 74-106 [facility] [employer] Other Comment on above: Performed By: #### T JAOSN, CMP, LIPID ####[facility] [address] [place] [id number]. Darrick Cao Potassium [Moles/Vol] 3.9 mmol/L Normal 3.5-5.1 [facility] [employer] Other Comment on above: Performed By: #### T SH, CMP, LIPID ####[facility] [address] [place] [address]Dr. Darrick Cao Protein [Mass/Vol] 7.9 g/dL Normal 6.4-8.2 [facility] [employer] Other Comment on above: Performed By: #### T SH, CMP, LIPID ####[facility] [address] [place], [place] [address]Rp. Darrick Cao Sodium [Moles/Vol] 143 mmol/L Normal 136-145 [employer] Other Comment on above: Performed By: #### T SH, CMP, LIPID ####[facility] [facility] [address] [place], [place] [address]Lt. Darrick Cao FREE T4on 10-30-2022 Free T4 [Mass/Vol] 0.77 ng/dL Normal 0.76-1.46 [facility] Comment on above: Performed By: #### F T4 ####[facility] [address] [place] [id number]. Darrick Cao LIPID PROFILEon 10-30-2022 CHOL-HDL RATIO NORM SEE BELOW Normal [facility] Comment on above: Result Comment: 3.3 - 4.4 LOW RISK 4.4 - 7.1 AVERAGE RISK 7.1 - 11.0 MODERATE RISK >11.0 HIGH RISK Performed By: #### T SH, CMP, LIPID ####[facility] [address] [place], [place] [address]Lc. Darrick Cao Cholesterol in LDL [Mass/Vol] 84.6 mg/dL Normal [facility] Comment on above: Performed By: #### T SH, CMP, LIPID ####[facility] [address] [place], [place] [address]Sw. Darrick Cao HDL NORMAL > or = 60 mg/dl - LO W CARDIOVASCULAR RISK <40 mg/dl - HIGH CARDIOVASCULAR RISK Normal [facility] Comment on above: Performed By: #### T SH, CMP, LIPID ####[facility] [address] [place], [place] [address]Qs. Darrick Cao LDL CALC NORMAL SEE BELOW Normal [facility] Comment on above: Result Comment: <100 mg/dl OPTIMAL 100 - 129 mg/dl NEAR OR ABOVE OPTIMAL 130 - 159 mg/dl BORDERLINE HIGH 160 - 189 mg/dl HIGH >190 mg/dl VERY HIGH Performed By: #### T SH, CMP, LIPID ####[facility] [address] [place], [place] [address]Zs. Darrick Cao Triglyceride [Mass/Vol] 222 mg/dL Critically high <=150 [facility] Comment on above: Performed By: #### T SH, CMP, LIPID ####[facility] [address] [place], [place] [address]Wd. Darrick Cao VLDL CALC 44.4 mg/dL Normal [facility] Comment on above: Performed By: #### T SH, CMP, LIPID ####[facility] [address] [place], [place] [address]Uz. Darrick Cao Lipid Panelon 10-30-2022 Cholesterol in LDL Elph Qn 84.6 [employer] Other Lipid Panel 222 [employer] Other Lipid Panel 44.4 [employer] Other Cholesterol [Mass/Vol] 185 mg/dL Normal <=200 [employer] Other Comment on above: Performed By: #### T SH, CMP, LIPID ####[facility] [address] [place], [place] [address]Lo. Darrick Cao Cholesterol in HDL [Mass/Vol] 56 mg/dL Normal 40-60 [employer] Other Comment on above: Performed By: #### T SH, CMP, LIPID ####[facility] [address] [place], [place] [address]Sj. Darrick Cao Cholesterol.total/Cho lesterol in HDL [Mass ratio] 3.3 {ratio} Normal [employer] Other Comment on above: Performed By: #### T SH, CMP, LIPID ####[facility] [address] [place], [place] [address]Iw. Darrick Cao PROF 14(COMP METB)on 023 Anion gap [Moles/Vol] 14.9 mmol/L Normal [facility] Comment on above: Performed By: #### T SH, CMP, LIPID ####[facility] [address] [place] [id number]. Darrick Cao EGFR-AF NAMIBIAN >60 Normal >=60 [facility] Comment on above: Performed By: #### T JASON CMP, LIPID ####[facility] [address] [place] [address]Dr. Darrick Cao EGFR-NON AF NAMIBIAN >60 Normal >=60 [facility] Comment on above: Performed By: #### T JASON CMP, LIPID ####[facility] [address] [place] [address]Dr. Darrick Cao Globulin (S) [Mass/Vol] 4.2 g/dL Normal [facility] Comment on above: Performed By: #### T JASON CMP, LIPID ####[facility] [address] [place] [address]Dr. Darrick Cao Urea nitrogen [Mass/Vol] 20.0 mg/dL Critically high 7.0-18.0 [facility] Comment on above: Performed By: #### T JASON CMP, LIPID ####[facility] [address] [place] [address]Dr. Darrick Cao Urea nitrogen/Creatinine [Mass ratio] 23.3 mg/mg Normal [facility] Comment on above: Performed By: #### T JASON CMP, LIPID ####[facility] [address] [place] [address]Dr. Darrick Cao TSHon 10-30-2022 TSH 6.415 uIU/mL Critically high 0.358-3.74 0 [facility] Comment on above: Performed By: #### T JASON CMP, LIPID ####[facility] [address] [place] [address]Dr. Darrick Cao Thyroid Stim Hormone w/Rflxo n 10-30-2022 Thyroid Stim Hormone w/Rflx 6.415 [employer] Other VITAMIN B12on 10-30-2022 Cobalamin (Vitamin B12) [Mass/Vol] 664.0 pg/mL Normal 193.0-986. 0 [facility] Comment on above: Performed By: #### V ITB12 #### [facility] [address] [place] [address] [address] Darrick Cao Vitamin B12on 10-30-2022 Cobalamin (Vitamin B12) [Mass/Vol] 664 pg/mL [employer] Other Automated erythrocytes count in urine sediment (number/area)Ordered By: Waqas Pierce on 10-23-2022 RBC Auto (Urine sed) [#/Area] 0-1 [HPF] 0-4 [facility] Automated leukocytes count i n urine sediment (number/area)Ordered By: Waqas Pierce on 10-23-2022 WBC Auto (Urine sed) [#/Area] 10-19 [HPF] 0-4 [facility] Bilirubin Test strip Ql (U)O rdered By: Waqas Pierce on 10-23-2022 Bilirubin Ql (U) Negative Negative [facility] Color Auto (U)Ordered By: Shay Pierce on 10-23-2022 Color (U) Yellow Yellow [facility] Ketones Auto test strip (U) [Mass/Vol]Ordered By: Waqas Pierce on 10-23-2022 Ketones (U) [Mass/Vol] Negative Negative [facility] Laboratory - UrinalysisOrder ed By: Waqas Pierce on 10-23-2022 Hyaline casts LM Ql (Urine sed) 0-8 [LPF] 0-8 [facility] Nitrite Test strip Ql (U)Ord ered By: Waqas Pierce on 10-23-2022 Nitrite Ql (U) Negative Negative [facility] Protein Auto test strip (U) [Mass/Vol]Ordered By: Waqas Pierce on 10-23-2022 Protein (U) [Mass/Vol] Negative Negative [facility] Specific gravity Auto test s trip (U) [Rel density]Ordered By: Waqas Pierce on 10-23-2022 Specific gravity (U) [Rel density] 1.016 1.001-1.03 0 [facility] Squamous epithelial cells de tection in urine sediment by light microscopyOrdered By: Waqas Pierce on 10-23-2022 Epithelial cells.squamous LM Ql (Urine sed) 5-9 [HPF] 0-2 [facility] Urine Cultureon 01-23-2023 Bacteria identified Cx Nom (U) [employer] Other Urine bacteria detection by automated methodOrdered By: Waqas Pierce on 10-23-2022 Bacteria Auto Ql (U) None seen None Seen [facility] Urine clarity by refractomet ry automatedOrdered By: Waqas Pierce on 10-23-2022 Clarity Refractometry automated (U) Clear Clear [facility] Urine glucose measurement by automated test strip (mass/volume)Ordered By: Waqas Pierce on 10-23-2022 Glucose Auto test strip (U) [Mass/Vol] Normal mg/dL Normal [facility] Urine hemoglobin detection b y automated test stripOrdered By: Waqas Pierce on 10-23-2022 Hemoglobin Auto test strip Ql (U) Negative Negative [facility] Urine leukocyte esterase det ection by automated test stripOrdered By: Waqas Pierce on 10-23-2022 Leukocyte esterase Auto test strip Ql (U) 3+ Negative [facility] Urobilinogen Auto test strip (U) [Mass/Vol]Ordered By: Waqas Pierce on 10-23-2022 Urobilinogen (U) [Mass/Vol] Normal mg/dL Normal [facility] pH Auto test strip (U)Ordere d By: Waqas Pierce on 10-23-2022 pH (U) 6.0 [pH] 5.0-9.0 [facility] A1C HEMOGLOBINon 10-13-2022 HbA1c (Bld) [Mass fraction] 5.9 % [employer] Other HbA1c (Bld) [Mass fraction]o n 10-13-2022 A1C HEMOGLOBIN [facility] Other XR FOOT LT MIN 3 VIEWSon [...] by: ALEX RYAN Date: 2022-09-20 16:40 Normal [facility] Office Visiton 09-06-2022 Follow-up visit [id number] Nicol Smith 1960 F Date Provider Department Center 09/06/2022 KIMBERLY BAKER [facility] Family History Problem Relation Age of Onset Diabetes Father Heart failure Father Diabetes Paternal Grandmother Diabetes Paternal Grandfather Family Status - Relation Status Age at Father Paternal Grandmother Paternal Grandfather Level of Service:97170 [facility] OFFICE/OUTPATIENT ESTABLISHED LOW MDM 20-29 MIN Normal [facility] XR LSPINE 2_3 VIEWSon 2021 XR LSPINE 2_3 VIEWS EXAMINATION: XR LSPI NE 2_3 VIEWS HISTORY: Low back pain COMPARISON: 09/26/2019 FINDINGS: BONES: Mild dextrocurvature. Moderate to severe spondylosis and facet osteoarthropathy DISC SPACES: Multilevel disc space narrowing most significant at L5-S1 PARASPINOUS: Negative. No paraspinous abnormality is seen. OTHER: Severe right hip osteoarthropathy with rhie-ac-sngd articulation. Left hip arthroplasty IMPRESSION: Moderate to severe degenerative changes Electronically authenticated by: SHAWNEE KELLY Date: 2022-08-20 11:47 Normal [facility] PAP ACOG PANEL 2: 30 to 65on 06-13-2022 . . Normal [facility] Comment on above: Result Comment: Perf ormed at: WB Performed By: #### 4 [id number] ####[facility] [address] [place] [address]DrMiguel Cao Age Gdln ACOG Testing 30-65 Normal [facility] Comment on above: Performed By: #### 4 [id number] ####[facility] [address] [place] [id number] Cao DIAGNOSIS: Comment Normal [facility] Comment on above: Result Comment: NEGA TIVE FOR INTRAEPITHELIAL LESION OR MALIGNANCY. THIS SPECIMEN WAS RESCREENED PART OF OUR [employer] PROGRAM. Performed at: WB Performed By: #### 4 [id number] ####[facility] [address] [place], [place] [id number] Cao HPV Aptima Negative Normal Negative [facility] Comment on above: Result Comment: This nucleic acid amplification test detects fourteen high-risk HPV types (16,18,31,33,35,39,45,51,52,56,58,59,66,68) without differentiation. Performed at: =G Performed By: #### 4 [id number] ####[facility] [address] [place], [place] [address]DrMiguel Cao Methodology: Comment Normal [facility] Comment on above: Result Comment: This liquid based ThinPrep(R) pap test was screened with the use of an image guided system. Performed at: WB Performed By: #### 4 [id number] ####[facility] [address] [place], [place] [address]DrMiguel Cao Note: Comment Normal [facility] Comment on above: Result Comment: The Pap smear is a screening test designed to aid in the detection of premalignant and malignant conditions of the uterine cervix. It is not a diagnostic procedure and should not be used as the sole means of detecting cervical cancer. Both false-positive and false-negative reports do occur. . Performed at: WB Performed By: #### 4 [id number] ####[facility] [address] [place], [place] [address]DrMiguel Cao Performed by: Comment Normal [facility] Comment on above: Result Comment: Solange Ann, Dredge Lever Operator (ASCP) Performed at: WB Performed By: #### 4 [id number] ####[facility] [address] [place], [place] [address]DrMiguel Cao QC reviewed by: Comment Normal [facility] Comment on above: Result Comment: Navi Rush, Supervisory Dredge Lever Operator (ASCP) Performed at: WB Performed By: #### 4 [id number] ####[facility] [address] [place], [place] [address]DrMiguel Cao Specimen adequacy: Comment Normal [facility] Comment on above: Result Comment: Sati sfactory for evaluation. Endocervical and/or squamous metaplastic cells (endocervical component) are present. Performed at: WB Performed By: #### 4 [id number] ####[facility] [address] [place] [id number]. Darrick Cao US PELVIS AND TRANSVAGon US [...] ARIELA SCHWAB Date: 2022-06-13 14:50 Normal [facility] ACID FAST SMEAR AND CXon Acid Fast Culture Negative Normal [facility] Comment on above: Result Comment: No a liliya fast bacilli isolated after 6 weeks. Performed By: #### A FB ####[facility] [address] [place] [address]Dr. Darrick Cao Acid Fast Smear Negative Normal [facility] Comment on above: Performed By: #### A FB ####[facility] [address] [place] [address]DrMiguel Cao [employer] Specimen Processing Tissue Grinding Normal [facility] Comment on above: Performed By: #### A FB ####[facility] [address] [place] [address]Dr. Darrick Cao FUNGAL CULTUREon 05-23-2022 Fungus (Mycology) Culture Final report Normal [facility] Comment on above: Performed By: #### C XFUN ####[facility] [address] [place] [address]Dr. Darrick Cao Fungus Stain Final report Normal [facility] Comment on above: Performed By: #### C XFUN ####[facility] [address] [place] [address]Dr. Darrick Cao Result 1 Comment Normal [facility] Comment on above: Result Comment: MAYE/ Calcofluor preparation: no fungus observed. Performed By: #### C XFUN ####[facility] [address] [place] [address]Dr. Darrick Cao Result Comment: No y east or mold isolated after 4 weeks. WOUND CULTUREon 04-28-2022 Bacteria identified Aer cx Nom (Unsp spec) Final report Normal [facility] Comment on above: Performed By: #### C XWND #### [facility] [address] [place] [address] [address] Darrick Cao Result 1 Comment Normal [facility] Comment on above: Result Comment: No g rowth in 36 - 48 hours. Performed By: #### C XWND #### [facility] [address] [place] [address] [address] Darrick Cao CULTURE WOUNDon 04-26-2022 CULTURE [...] S F Vancomycin 1 S F Normal [facility] Comment on above: Performed By: #### W OUNDCX ####[facility] [address] [place] [address]Dr. Darrick Cao CBC AUTO DIFFon 04-25-2022 BASO # 0.0 103/ul Normal 0.0-0.1 [facility] Comment on above: Performed By: #### C XWND #### [facility] [address] [place] [address] Dr. Darrick Cao Basophils/100 WBC (Bld) 0.5 % Normal 0.2-2.0 [facility] Comment on above: Performed By: #### C XWND #### [facility] [address] [place] [address] Dr. Darrick Cao EO # 0.1 103/ul Normal 0.0-0.7 [facility] Comment on above: Performed By: #### C XWND #### [facility] [address] [place] [address] Dr. Darrick Cao Eosinophils/100 WBC (Bld) 1.1 % Normal 0.9-7.0 [facility] Comment on above: Performed By: #### C XWND #### [facility] [address] [place] [address] Dr. Darrick Cao Erythrocyte distribution width (RBC) [Ratio] 15.8 % Critically high 11.0-15.0 [facility] Comment on above: Performed By: #### C XWND #### [facility] [address] [place] [address] Dr. Darrick Cao Hematocrit (Bld) [Volume fraction] 31.7 % Critically low 36.0-48.0 [facility] Comment on above: Performed By: #### C XWND #### [facility] [address] [place] [address] Dr. Darrick Cao Hemoglobin (Bld) [Mass/Vol] 10.1 g/dL Critically low 12.0-16.0 [facility] Comment on above: Performed By: #### C XWND #### [facility] [address] [place] [address] Dr. Darrick Cao IG # 0.02 10e3/ul Normal 0.00-0.03 [facility] Comment on above: Performed By: #### C XWND #### [facility] [address] [place] [address] Dr. Darrick Cao IG % 0.3 % Normal 0.0-0.5 [facility] Comment on above: Performed By: #### C XWND #### [facility] [address] [place] [address] Dr. Darrick Cao LYMPH # 1.8 103/ul Normal 1.2-3.8 [facility] Comment on above: Performed By: #### C XWND #### [facility] [address] [place] [address] Dr. Darrick Cao Lymphocytes/100 WBC (Bld) 24.3 % Normal 20.5-60.0 [facility] Comment on above: Performed By: #### C XWND #### [facility] [address] [place] [address] Dr. Darrick Cao MANUAL DIFF REQ NO Normal [facility] Comment on above: Performed By: #### C XWND #### [facility] [address] [place] [address] Dr. Darrick Cao MCH (RBC) [Entitic mass] 28.0 pg Normal 26.7-34.0 [facility] Comment on above: Performed By: #### C XWND #### [facility] [address] [place] [address] Dr. Darrick Cao MCHC (RBC) [Mass/Vol] 31.9 g/dL Normal 29.9-35.2 [facility] Comment on above: Performed By: #### C XWND #### [facility] [address] [place] [address] Dr. Darrick Cao MCV (RBC) [Entitic vol] 87.8 fL Normal 81.0-99.0 [facility] Comment on above: Performed By: #### C XWND #### [facility] [address] [place] [address] Dr. Darrick Cao MONO # 0.5 103/ul Normal 0.3-0.8 [facility] Comment on above: Performed By: #### C XWND #### [facility] [address] [place] [address] Dr. Darrick Cao Monocytes/100 WBC (Bld) 7.2 % Normal 1.7-12.0 [facility] Comment on above: Performed By: #### C XWND #### [facility] [address] [place] [address] [address] Darrick Cao NEUT # 5.0 103/ul Normal 1.4-6.5 [facility] Comment on above: Performed By: #### C XWND #### [facility] [address] [place] [address] [address] Darrick Cao Neutrophils/100 WBC (Bld) 66.6 % Normal 43.0-75.0 [facility] Comment on above: Performed By: #### C XWND #### [facility] [address] [place] [address] [address] Darrick Cao Platelet mean volume (Bld) [Entitic vol] 9.6 fL Normal 9.5-13.5 [facility] Comment on above: Performed By: #### C XWND #### [facility] [address] [place] [address] [address] Darrick Cao PLT 295 103/ul Normal 150-450 [facility] Comment on above: Performed By: #### C XWND #### [facility] [address] [place] [address] Dr. Darrick Cao RBC 3.61 106/ul Critically low 4.20-5.40 [facility] Comment on above: Performed By: #### C XWND #### [facility] [address] [place] [address] Dr. Darrick Cao WBC 7.5 103/ul Normal 4.0-11.0 [facility] Comment on above: Performed By: #### C XWND #### [facility] [id number] Darrick Cao ER URINE PROFILEon 2 Bilirubin Ql (U) Negative Normal NEGATIVE [facility] Comment on above: Performed By: #### U MICRO, ERUR ####[facility] [address] [place] [address]Dr. Darrick Cao Clarity (U) CLEAR Normal CLEAR [facility] Comment on above: Performed By: #### U MICRO, ERUR ####[facility] [address] [place] [address]Dr. Darrick Cao Color (U) LT. YELLOW Normal YELLOW [facility] Comment on above: Performed By: #### U MICRO, ERUR ####[facility] [address] [place] [address]Dr. Darrick Cao ERUAHD A micrscopic examina tion will be performed if indicated. Normal [facility] Comment on above: Performed By: #### U MICRO, ERUR ####[facility] [address] [place], [place] [address]Dr. Darrick Cao Glucose Ql (U) Negative Normal NEGATIVE [facility] Comment on above: Performed By: #### U MICRO, ERUR ####[facility] [address] [place], [place] [address]Dr. Darrick Cao Hemoglobin Ql (U) SMALL Abnormal NEGATIVE [facility] Comment on above: Performed By: #### U MICRO, ERUR ####[facility] [address] [place], [place] [address]Dr. Darrick Cao Ketones Ql (U) Negative Normal NEGATIVE [facility] Comment on above: Performed By: #### U MICRO, ERUR ####[facility] [address] [place] [address]Dr. Darrick Cao LEUKOCYTES Negative Normal NEGATIVE [facility] Comment on above: Performed By: #### U MICRO, ERUR ####[facility] [address] [place] [address]Dr. Darrick Cao Nitrite Ql (U) Negative Normal NEGATIVE [facility] Comment on above: Performed By: #### U MICRO, ERUR ####[facility] [address] [place], [place] [address]Dr. Darrick Cao pH (U) 6.0 [pH] Normal 5-9 [facility] Comment on above: Performed By: #### U MICRO, ERUR ####[facility] [address] [place], [place] [address]Dr. Darrick Cao SPEC GRAVITY 1.020 Normal 1.005-<=1. 025 [facility] Comment on above: Performed By: #### U MICRO, ERUR ####[facility] [address] [place] [address]DrMiguel Cao UA PROTEIN Negative Normal NEGATIVE/ TRACE [facility] Comment on above: Performed By: #### U MICRO, ERUR ####[facility] [address] [place] [address]Dr. Darrick Cao UR MICRO IND INDICATED Normal [facility] Comment on above: Performed By: #### U MICRO, ERUR ####[facility] [address] [place] [address]Dr. Darrick Cao Urobilinogen Qn (U) 0.2 {Larissa'U}/dL Normal 0.2 - 1. 0 [facility] Comment on above: Performed By: #### U MICRO, ERUR ####[facility] [address] [place] [address]DrMiguel Cao POINT OF CARE GLUCOSEon 04-01 Glucose [Mass/Vol] 118 mg/dL Critically high 74-106 [facility] Comment on above: Performed By: #### P OCGLUC ####[facility] [address] [place] [address]Dr. Darrick Cao PROF 14(COMP METB)on 022 Albumin [Mass/Vol] 2.9 g/dL Critically low 3.4-5.0 [facility] Comment on above: Performed By: #### P OCGLUC #### [facility] [address] [address] [address] Darrick Cao Albumin/Globulin [Mass ratio] 0.8 {ratio} Normal [facility] Comment on above: Performed By: #### P OCGLUC #### [facility] [address] [address] [address] Darrick Cao ALP [Catalytic activity/Vol] 113 U/L Normal 46-116 [facility] Comment on above: Performed By: #### P OCGLUC #### [facility] [address] [address] [address] Darrick Cao ALT [Catalytic activity/Vol] 56 U/L Normal 14-59 [facility] Comment on above: Performed By: #### P OCGLUC #### [facility] [address] [address] [address] Darrick Cao Anion gap [Moles/Vol] 8.8 mmol/L Normal [facility] Comment on above: Performed By: #### P OCGLUC #### [facility] [address] [address] [address] Darrick Cao AST [Catalytic activity/Vol] 30 U/L Normal 15-37 [facility] Comment on above: Performed By: #### P OCGLUC #### [facility] [address] [address] [address] Darrick Cao Bilirubin [Mass/Vol] 0.3 mg/dL Normal 0.2-1.0 [facility] Comment on above: Performed By: #### P OCGLUC #### [facility] [address] [address] [address] Darrick Cao Calcium [Mass/Vol] 8.6 mg/dL Normal 8.5-10.1 [facility] Comment on above: Performed By: #### P OCGLUC #### [facility] [address] [address] [address] Darrick Cao Chloride [Moles/Vol] 105 mmol/L Normal 98-107 [facility] Comment on above: Performed By: #### P OCGLUC #### [facility] [address] [address] [address] Darrick Cao CO2 [Moles/Vol] 30.4 mmol/L Normal 21.0-32.0 [facility] Comment on above: Performed By: #### P OCGLUC #### [facility] [address] [address] [address] Darrick Cao Creatinine [Mass/Vol] 0.82 mg/dL Normal 0.55-1.02 [facility] Comment on above: Performed By: #### P OCGLUC #### [facility] [address] [address] [address] Darrick Cao EGFR-AF NAMIBIAN >60 Normal >=60 [facility] Comment on above: Performed By: #### P OCGLUC #### [facility] [address] [address] [address] Darrick Cao EGFR-NON AF NAMIBIAN >60 Normal >=60 [facility] Comment on above: Performed By: #### P OCGLUC #### [facility] [address] [address] [address] Darrick Cao Globulin (S) [Mass/Vol] 3.6 g/dL Normal [facility] Comment on above: Performed By: #### P OCGLUC #### [facility] [address] [address] [address] Darrick Cao Glucose [Mass/Vol] 103 mg/dL Normal 74-106 [facility] Comment on above: Performed By: #### P OCGLUC #### [facility] [address] [address] [address] Darrick Cao Potassium [Moles/Vol] 4.2 mmol/L Normal 3.5-5.1 [facility] Comment on above: Performed By: #### P OCGLUC #### [facility] [address] [address] [address] Darrick Cao Protein [Mass/Vol] 6.5 g/dL Normal 6.4-8.2 [facility] Comment on above: Performed By: #### P OCGLUC #### [facility] [address] [address] [address] Darrick Cao Sodium [Moles/Vol] 140 mmol/L Normal 136-145 [facility] Comment on above: Performed By: #### P OCGLUC #### [facility] [address] [address] [address] Darrick Cao Urea nitrogen [Mass/Vol] 11.0 mg/dL Normal 7.0-18.0 [facility] Comment on above: Performed By: #### P OCGLUC #### [facility] [address] [address] [address] Darrick Cao Urea nitrogen/Creatinine [Mass ratio] 13.4 mg/mg Normal [facility] Comment on above: Performed By: #### P OCGLUC #### [facility] [address] [address] [address] Darrick Cao URINE MICROSCOPIC ONLYon BACTERIA NONE SEEN Normal NONE SEEN [facility] Comment on above: Performed By: #### U MICRO, ERUR ####[facility] [address] [address]Dr. Darrick Cao Bacteria identified Cx Nom (U) NOT INDICATED Normal [facility] Comment on above: Performed By: #### U MICRO, ERUR ####[facility] [address] [address]Dr. Darrick Cao CAST NONE SEEN Normal NONE SEEN [facility] Comment on above: Performed By: #### U MICRO, ERUR ####[facility] [address] [address]Dr. Darrick Cao Crystals LM Nom (Urine sed) NONE SEEN Normal NONE SEEN [facility] Comment on above: Performed By: #### U MICRO, ERUR ####[facility] [address] [address]Dr. Darrick Cao Epithelial cells LM Ql (Urine sed) RARE Normal NONE SEEN /RARE [facility] Comment on above: Performed By: #### U MICRO, ERUR ####[facility] [address] [address]Dr. Darrick Cao MUCOUS NONE SEEN Normal NONE SEEN [facility] Comment on above: Performed By: #### U MICRO, ERUR ####[facility] [address] [address]Dr. Darrick Cao RBC 5-10 Abnormal 0-2 [facility] Comment on above: Performed By: #### U MICRO, ERUR ####[facility] [address] [address]Dr. Darrick Cao WBC 0-2 Abnormal NONE SEEN [facility] Comment on above: Performed By: #### U MICRO, ERUR ####[facility] [id number] [place], [place] [address]Dr. Darrick Cao XR CHEST 2 Von 04-25-2022 [...] AMY FOWLER Date: 2022-04-25 20:07 Normal [facility] CBC AUTO DIFFon 04-24-2022 BASO # 0.1 103/ul Normal 0.0-0.1 [facility] Comment on above: Performed By: #### P OCGLUC #### [facility] [address] [place] [address] Dr. Darrick Cao Basophils/100 WBC (Bld) 0.8 % Normal 0.2-2.0 [facility] Comment on above: Performed By: #### P OCGLUC #### [facility] [address] [place] [address] Dr. Darrick Cao EO # 0.1 103/ul Normal 0.0-0.7 [facility] Comment on above: Performed By: #### P OCGLUC #### [facility] [address] [place] [address] Dr. Darrick Cao Eosinophils/100 WBC (Bld) 1.9 % Normal 0.9-7.0 [facility] Comment on above: Performed By: #### P OCGLUC #### [facility] [address] [place] [address] Dr. Darrick Cao Erythrocyte distribution width (RBC) [Ratio] 15.6 % Critically high 11.0-15.0 [facility] Comment on above: Performed By: #### P OCGLUC #### [facility] [address] [place] [address] Dr. Darrick Cao Hematocrit (Bld) [Volume fraction] 35.4 % Critically low 36.0-48.0 [facility] Comment on above: Performed By: #### P OCGLUC #### [facility] [address] [address] [address] Darrick Cao Hemoglobin (Bld) [Mass/Vol] 11.4 g/dL Critically low 12.0-16.0 [facility] Comment on above: Performed By: #### P OCGLUC #### [facility] [address] [address] [address] Darrick Cao IG # 0.02 10e3/ul Normal 0.00-0.03 [facility] Comment on above: Performed By: #### P OCGLUC #### [facility] [address] [address] [address] Darrick Cao IG % 0.3 % Normal 0.0-0.5 [facility] Comment on above: Performed By: #### P OCGLUC #### [facility] [address] [place] [address] Dr. Darrick Cao LYMPH # 1.9 103/ul Normal 1.2-3.8 [facility] Comment on above: Performed By: #### P OCGLUC #### [facility] [address] [place] [address] Dr. Darrick Cao Lymphocytes/100 WBC (Bld) 30.2 % Normal 20.5-60.0 [facility] Comment on above: Performed By: #### P OCGLUC #### [facility] [address] [place] [address] Dr. Darrick Cao MANUAL DIFF REQ NO Normal [facility] Comment on above: Performed By: #### P OCGLUC #### [facility] [address] [address] [address] Darrick Cao MCH (RBC) [Entitic mass] 27.9 pg Normal 26.7-34.0 [facility] Comment on above: Performed By: #### P OCGLUC #### [facility] [address] [place] [address] Dr. Darrick Cao MCHC (RBC) [Mass/Vol] 32.2 g/dL Normal 29.9-35.2 [facility] Comment on above: Performed By: #### P OCGLUC #### [facility] [address] [address] [address] Darrick Cao MCV (RBC) [Entitic vol] 86.6 fL Normal 81.0-99.0 [facility] Comment on above: Performed By: #### P OCGLUC #### [facility] [address] [address] [address] Darrick Cao MONO # 0.6 103/ul Normal 0.3-0.8 [facility] Comment on above: Performed By: #### P OCGLUC #### [facility] [address] [address] [address] Darrick Cao Monocytes/100 WBC (Bld) 9.0 % Normal 1.7-12.0 [facility] Comment on above: Performed By: #### P OCGLUC #### [facility] [address] [place] [address] Dr. Darrick Cao NEUT # 3.7 103/ul Normal 1.4-6.5 [facility] Comment on above: Performed By: #### P OCGLUC #### [facility] [address] [place] [address] Dr. Darrick Cao Neutrophils/100 WBC (Bld) 57.8 % Normal 43.0-75.0 [facility] Comment on above: Performed By: #### P OCGLUC #### [facility] [address] [place] [address] Dr. Darrick Cao Platelet mean volume (Bld) [Entitic vol] 9.5 fL Normal 9.5-13.5 [facility] Comment on above: Performed By: #### P OCGLUC #### [facility] [address] [place] [address] Dr. Darrick Cao PLT 256 103/ul Normal 150-450 [facility] Comment on above: Performed By: #### P OCGLUC #### [facility] [address] [address] [address] Darrick Cao RBC 4.09 106/ul Critically low 4.20-5.40 [facility] Comment on above: Performed By: #### P OCGLUC #### [facility] [address] [address] [address] Darrick Cao WBC 6.3 103/ul Normal 4.0-11.0 [facility] Comment on above: Performed By: #### P OCGLUC #### [facility] [address] [address] [address] Darrick Cao GRAM STAINon 04-24-2022 COMMENTS NO ORGANISMS OBSERVED Normal [facility] Comment on above: Performed By: #### C XWND #### [facility] [address] [address] [address] Darrick Cao DIPHTHEROIDS Normal [facility] Comment on above: Performed By: #### C XWND #### [facility] [address] [address] [address] Darrick Cao EPITHELIALS Normal [facility] Comment on above: Performed By: #### C XWND #### [facility] [address] [address] [address] Darrick Cao FUNGAL ELEMENTS Normal [facility] Comment on above: Performed By: #### C XWND #### [facility] [address] [address] [address] Darrick SOLOMON NEG BACILLI Normal [facility] Comment on above: Performed By: #### C XWND #### [facility] [address] [address] [address] Darrick SOLOMON NEG DIPPLOCOCCI Normal [facility] Comment on above: Performed By: #### C XWND #### [facility] [address] [address] [address] Darrick Cao GRAM POS BACILLI Normal [facility] Comment on above: Performed By: #### C XWND #### [facility] [address] [place] [address] Dr. Darrick Cao GRAM POSITIVE COCCI Normal [facility] Comment on above: Performed By: #### C XWND #### [facility] [address] [address] [address] Darrick Cao GRAM STAIN SOURCE Post irrigation left foot Normal [facility] Comment on above: Performed By: #### C XWND #### [facility] [address] [address] [address] Darrick Cao GS_DIPTH [facility] Comment on above: Performed By: #### C XWND #### [facility] [address] [address] [address] Darrick Cao WBC NONE SEEN [facility] Comment on above: Performed By: #### C XWND #### [facility] [address] [address] [address] Darrick Cao POINT OF CARE GLUCOSEon 04-01 Glucose [Mass/Vol] 132 mg/dL Critically high 74-106 [facility] Comment on above: Performed By: #### P OCGLUC #### [facility] [address] [address] [address] Darrick Cao Glucose [Mass/Vol] 105 mg/dL Normal 74-106 [facility] Comment on above: Performed By: #### P OCGLUC ####[facility] [address] [address]Dr. Darrick Cao PROF 14(COMP METB)on 022 Albumin [Mass/Vol] 2.9 g/dL Critically low 3.4-5.0 [facility] Comment on above: Performed By: #### P OCGLUC #### [facility] [address] [address] [address] Darrick Cao Albumin/Globulin [Mass ratio] 0.8 {ratio} [facility] Comment on above: Performed By: #### P OCGLUC #### [facility] [address] [address] [address] Darrick Cao ALP [Catalytic activity/Vol] 122 U/L Critically high 46-116 [facility] Comment on above: Performed By: #### P OCGLUC #### [facility] [address] [address] [address] Darrick Cao ALT [Catalytic activity/Vol] 65 U/L Critically high 14-59 [facility] Comment on above: Performed By: #### P OCGLUC #### [facility] [address] [address] [address] Darrick Cao Anion gap [Moles/Vol] 12.2 mmol/L Normal [facility] Comment on above: Performed By: #### P OCGLUC #### [facility] [address] [address] [address] Darrick Cao AST [Catalytic activity/Vol] 28 U/L Normal 15-37 [facility] Comment on above: Performed By: #### P OCGLUC #### [facility] [address] [address] [address] Darrick Cao Bilirubin [Mass/Vol] 0.3 mg/dL Normal 0.2-1.0 [facility] Comment on above: Performed By: #### P OCGLUC #### [facility] [address] [address] [address] Darrick Cao Calcium [Mass/Vol] 8.5 mg/dL Normal 8.5-10.1 [facility] Comment on above: Performed By: #### P OCGLUC #### [facility] [address] [address] [address] Darrick Cao Chloride [Moles/Vol] 107 mmol/L Normal 98-107 [facility] Comment on above: Performed By: #### P OCGLUC #### [facility] [address] [address] [address] Darrick Cao CO2 [Moles/Vol] 25.9 mmol/L Normal 21.0-32.0 [facility] Comment on above: Performed By: #### P OCGLUC #### [facility] [address] [address] [address] Darrick Cao Creatinine [Mass/Vol] 0.87 mg/dL Normal 0.55-1.02 [facility] Comment on above: Performed By: #### P OCGLUC #### [facility] [address] [address] [address] Darrick Cao EGFR-AF NAMIBIAN >60 Normal >=60 [facility] Comment on above: Performed By: #### P OCGLUC #### [facility] [address] [address] [address] Darrick Cao EGFR-NON AF NAMIBIAN >60 Normal >=60 [facility] Comment on above: Performed By: #### P OCGLUC #### [facility] [address] [address] [address] Darrick Cao Globulin (S) [Mass/Vol] 3.8 g/dL Normal [facility] Comment on above: Performed By: #### P OCGLUC #### [facility] [address] [address] [address] Darrick Cao Glucose [Mass/Vol] 107 mg/dL Critically high 74-106 [facility] Comment on above: Performed By: #### P OCGLUC #### [facility] [address] [address] [address] Darrick Cao Potassium [Moles/Vol] 4.1 mmol/L Normal 3.5-5.1 [facility] Comment on above: Performed By: #### P OCGLUC #### [facility] [address] [address] [address] Darrick Cao Protein [Mass/Vol] 6.7 g/dL Normal 6.4-8.2 [facility] Comment on above: Performed By: #### P OCGLUC #### [facility] [address] [address] [address] Darrick Cao Sodium [Moles/Vol] 141 mmol/L Normal 136-145 [facility] Comment on above: Performed By: #### P OCGLUC #### [facility] [address] [address] [address] Darrick Cao Urea nitrogen [Mass/Vol] 10.0 mg/dL Normal 7.0-18.0 [facility] Comment on above: Performed By: #### P OCGLUC #### [facility] [address] [address] [address] Darrick Cao Urea nitrogen/Creatinine [Mass ratio] 11.5 mg/mg Normal [facility] Comment on above: Performed By: #### P OCGLUC #### [facility] [address] [address] [address] Darrick Cao VANCOMYCIN TROUGHon 04-24-20 VANCOMYCIN TROUGH 9.6 ug/ml Normal 5.0-20.0 [facility] Comment on above: Performed By: #### V ANCT #### [facility] [address] [place] [address] Dr. Darrick Cao CBC AUTO DIFFon 04-23-2022 BASO # 0.1 103/ul Normal 0.0-0.1 [facility] Comment on above: Performed By: #### C XWND #### [facility] [address] [place] [address] Dr. Darrick Cao Basophils/100 WBC (Bld) 0.6 % Normal 0.2-2.0 [facility] Comment on above: Performed By: #### C XWND #### [facility] [address] [place] [address] Dr. Darrick Cao EO # 0.1 103/ul Normal 0.0-0.7 [facility] Comment on above: Performed By: #### C XWND #### [facility] [address] [place] [address] Dr. Darrick Cao Eosinophils/100 WBC (Bld) 0.6 % Critically low 0.9-7.0 [facility] Comment on above: Performed By: #### C XWND #### [facility] [address] [place] [address] Dr. Darrick Cao Erythrocyte distribution width (RBC) [Ratio] 15.8 % Critically high 11.0-15.0 [facility] Comment on above: Performed By: #### C XWND #### [facility] [address] [place] [address] Dr. Darrick Cao Hematocrit (Bld) [Volume fraction] 34.0 % Critically low 36.0-48.0 [facility] Comment on above: Performed By: #### C XWND #### [facility] [address] [place] [address] Dr. Darrick Cao Hemoglobin (Bld) [Mass/Vol] 11.0 g/dL Critically low 12.0-16.0 [facility] Comment on above: Performed By: #### C XWND #### [facility] [address] [address] [address] Darrick Cao IG # 0.03 10e3/ul Normal 0.00-0.03 [facility] Comment on above: Performed By: #### C XWND #### [facility] [address] [address] [address] Darrick Cao IG % 0.4 % Normal 0.0-0.5 [facility] Comment on above: Performed By: #### C XWND #### [facility] [address] [place] [address] Dr. Darrick Cao LYMPH # 1.6 103/ul Normal 1.2-3.8 [facility] Comment on above: Performed By: #### C XWND #### [facility] [address] [place] [address] Dr. Darrick Cao Lymphocytes/100 WBC (Bld) 19.6 % Critically low 20.5-60.0 [facility] Comment on above: Performed By: #### C XWND #### [facility] [address] [place] [address] Dr. Darrick Cao MANUAL DIFF REQ NO Normal [facility] Comment on above: Performed By: #### C XWND #### [facility] [address] [address] [address] Darrick Cao MCH (RBC) [Entitic mass] 28.1 pg Normal 26.7-34.0 [facility] Comment on above: Performed By: #### C XWND #### [facility] [address] [place] [address] Dr. Darrick Cao MCHC (RBC) [Mass/Vol] 32.4 g/dL Normal 29.9-35.2 [facility] Comment on above: Performed By: #### C XWND #### [facility] [address] [place] [address] Dr. Darrick Cao MCV (RBC) [Entitic vol] 87.0 fL Normal 81.0-99.0 [facility] Comment on above: Performed By: #### C XWND #### [facility] [address] [address] [address] Darrick Cao MONO # 0.8 103/ul Normal 0.3-0.8 [facility] Comment on above: Performed By: #### C XWND #### [facility] [address] [place] [address] Dr. Darrick Cao Monocytes/100 WBC (Bld) 10.3 % Normal 1.7-12.0 [facility] Comment on above: Performed By: #### C XWND #### [facility] [address] [place] [address] Dr. Darrick Cao NEUT # 5.4 103/ul Normal 1.4-6.5 [facility] Comment on above: Performed By: #### C XWND #### [facility] [address] [place] [address] Dr. Darrick Cao Neutrophils/100 WBC (Bld) 68.5 % Normal 43.0-75.0 [facility] Comment on above: Performed By: #### C XWND #### [facility] [address] [place] [address] Dr. Darrick Cao Platelet mean volume (Bld) [Entitic vol] 9.9 fL Normal 9.5-13.5 [facility] Comment on above: Performed By: #### C XWND #### [facility] [address] [place] [address] Dr. Darrick Cao PLT 276 103/ul Normal 150-450 [facility] Comment on above: Performed By: #### C XWND #### [facility] [address] [place] [address] Dr. Darrick Cao RBC 3.91 106/ul Critically low 4.20-5.40 [facility] Comment on above: Performed By: #### C XWND #### [facility] [address] [place] [address] Dr. Darrick Cao WBC 7.9 103/ul Normal 4.0-11.0 [facility] Comment on above: Performed By: #### C XWND #### [facility] [address] [address] [address] Darrick Cao POINT OF CARE GLUCOSEon 04-01 Glucose [Mass/Vol] 138 mg/dL Critically high 74-106 [facility] Comment on above: Performed By: #### P OCGLUC ####[facility] [address] [address]Dr. Darrick Cao Glucose [Mass/Vol] 151 mg/dL Critically high 74-106 [facility] Comment on above: Performed By: #### P OCGLUC #### [facility] [address] [place] [address] Dr. Darrick Cao Glucose [Mass/Vol] 141 mg/dL Critically high 74-106 [facility] Comment on above: Performed By: #### P OCGLUC ####[facility] [address] [address]Dr. Darrick Cao PROF 14(COMP METB)on 022 Albumin [Mass/Vol] 3.0 g/dL Critically low 3.4-5.0 [facility] Comment on above: Performed By: #### C XWND #### [facility] [address] [place] [address] Dr. Darrick Cao Albumin/Globulin [Mass ratio] 0.9 {ratio} Normal [facility] Comment on above: Performed By: #### C XWND #### [facility] [facility] [address] [place] [address] Dr. Darrick Cao ALP [Catalytic activity/Vol] 128 U/L Critically high 46-116 [facility] Comment on above: Performed By: #### C XWND #### [facility] [address] [place] [address] Dr. Darrick Cao ALT [Catalytic activity/Vol] 71 U/L Critically high 14-59 [facility] Comment on above: Performed By: #### C XWND #### [facility] [address] [place] [address] Dr. Darrick Cao Anion gap [Moles/Vol] 13.1 mmol/L Normal [facility] Comment on above: Performed By: #### C XWND #### [facility] [address] [place] [address] Dr. Darrick Cao AST [Catalytic activity/Vol] 50 U/L Critically high 15-37 [facility] Comment on above: Performed By: #### C XWND #### [facility] [address] [place] [address] Dr. Darrick Cao Bilirubin [Mass/Vol] 0.3 mg/dL Normal 0.2-1.0 [facility] Comment on above: Performed By: #### C XWND #### [facility] [address] [place] [address] Dr. Darrick Cao Calcium [Mass/Vol] 8.2 mg/dL Critically low 8.5-10.1 [facility] Comment on above: Performed By: #### C XWND #### [facility] [address] [place] [address] Dr. Darrick Cao Chloride [Moles/Vol] 110 mmol/L Critically high 98-107 [facility] Comment on above: Performed By: #### C XWND #### [facility] [address] [place] [address] Dr. Darrick Cao CO2 [Moles/Vol] 23.4 mmol/L Normal 21.0-32.0 [facility] Comment on above: Performed By: #### C XWND #### [facility] [address] [place] [address] Dr. Darrick Cao Creatinine [Mass/Vol] 0.96 mg/dL Normal 0.55-1.02 [facility] Comment on above: Performed By: #### C XWND #### [facility] [address] [place] [address] Dr. Darrick Cao EGFR-AF NAMIBIAN >60 Normal >=60 [facility] Comment on above: Performed By: #### C XWND #### [facility] [address] [place] [address] Dr. Darrick Cao EGFR-NON AF NAMIBIAN 59 mL/min/1.73m2 Critically low >=60 [facility] Comment on above: Performed By: #### C XWND #### [facility] [address] [place] [address] Dr. Darrick Cao Globulin (S) [Mass/Vol] 3.3 g/dL Normal [facility] Comment on above: Performed By: #### C XWND #### [facility] [address] [place] [address] Dr. Darrick Cao Glucose [Mass/Vol] 116 mg/dL Critically high 74-106 [facility] Comment on above: Performed By: #### C XWND #### [facility] [address] [place] [address] Dr. Darrick Cao Potassium [Moles/Vol] 4.5 mmol/L Normal 3.5-5.1 [facility] Comment on above: Performed By: #### C XWND #### [facility] [address] [place] [address] Dr. Darrick Cao Protein [Mass/Vol] 6.3 g/dL Critically low 6.4-8.2 [facility] Comment on above: Performed By: #### C XWND #### [facility] [address] [place] [address] Dr. Darrick Cao Sodium [Moles/Vol] 142 mmol/L Normal 136-145 [facility] Comment on above: Performed By: #### C XWND #### [facility] [address] [place] [address] Dr. Darrick Cao Urea nitrogen [Mass/Vol] 14.0 mg/dL Normal 7.0-18.0 [facility] Comment on above: Performed By: #### C XWND #### [facility] [address] [place] [address] Dr. Darrick Cao Urea nitrogen/Creatinine [Mass ratio] 14.6 mg/mg Normal [facility] Comment on above: Performed By: #### C XWND #### [facility] [address] [place] [address] Dr. Darrick Cao CBC AUTO DIFFon 04-22-2022 BASO # 0.1 103/ul Normal 0.0-0.1 [facility] Comment on above: Performed By: #### C BC #### [facility] [address] [place] [address] Dr. Darrick Cao Basophils/100 WBC (Bld) 0.7 % Normal 0.2-2.0 [facility] Comment on above: Performed By: #### C BC #### [facility] [address] [place] [address] Dr. Darrick Cao EO # 0.1 103/ul Normal 0.0-0.7 [facility] Comment on above: Performed By: #### C BC #### [facility] [address] [place] [address] Dr. Darrick Cao Eosinophils/100 WBC (Bld) 0.5 % Critically low 0.9-7.0 [facility] Comment on above: Performed By: #### C BC #### [facility] [address] [place] [address] Dr. Darrick Cao Erythrocyte distribution width (RBC) [Ratio] 15.8 % Critically high 11.0-15.0 [facility] Comment on above: Performed By: #### C BC #### [facility] [address] [place] [address] Dr. Darrick Cao Hematocrit (Bld) [Volume fraction] 39.8 % Normal 36.0-48.0 [facility] Comment on above: Performed By: #### C BC #### [facility] [address] [place] [address] Dr. Darrick Cao Hemoglobin (Bld) [Mass/Vol] 12.9 g/dL Normal 12.0-16.0 [facility] Comment on above: Performed By: #### C BC #### [facility] [address] [place] [address] Dr. Darrick Cao IG # 0.03 10e3/ul Normal 0.00-0.03 [facility] Comment on above: Performed By: #### C BC #### [facility] [address] [place] [address] Dr. Darrick Cao IG % 0.3 % Normal 0.0-0.5 [facility] Comment on above: Performed By: #### C BC #### [facility] [address] [place] [address] Dr. Darrick Cao LYMPH # 1.6 103/ul Normal 1.2-3.8 [facility] Comment on above: Performed By: #### C BC #### [facility] [address] [place] [address] Dr. Darrick Cao Lymphocytes/100 WBC (Bld) 16.0 % Critically low 20.5-60.0 [facility] Comment on above: Performed By: #### C BC #### [facility] [address] [place] [address] Dr. Darrick Cao MANUAL DIFF REQ NO Normal [facility] Comment on above: Performed By: #### C BC #### [facility] [address] [place] [address] Dr. Darrick Cao MCH (RBC) [Entitic mass] 28.2 pg Normal 26.7-34.0 [facility] Comment on above: Performed By: #### C BC #### [facility] [address] [place] [address] Dr. Darrick Cao MCHC (RBC) [Mass/Vol] 32.4 g/dL Normal 29.9-35.2 [facility] Comment on above: Performed By: #### C BC #### [facility] [address] [place] [address] Dr. Darrick Cao MCV (RBC) [Entitic vol] 86.9 fL Normal 81.0-99.0 [facility] Comment on above: Performed By: #### C BC #### [facility] [address] [place] [address] Dr. Darrick Cao MONO # 0.9 103/ul Critically high 0.3-0.8 [facility] Comment on above: Performed By: #### C BC #### [facility] [address] [place] [address] Dr. Darrick Cao Monocytes/100 WBC (Bld) 8.7 % Normal 1.7-12.0 [facility] Comment on above: Performed By: #### C BC #### [facility] [address] [address] [address] Darrick Cao NEUT # 7.5 103/ul Critically high 1.4-6.5 [facility] Comment on above: Performed By: #### C BC #### [facility] [address] [address] [address] Darrick Cao Neutrophils/100 WBC (Bld) 73.8 % Normal 43.0-75.0 [facility] Comment on above: Performed By: #### C BC #### [facility] [address] [address] [address] Darrick Cao Platelet mean volume (Bld) [Entitic vol] 9.3 fL Critically low 9.5-13.5 [facility] Comment on above: Performed By: #### C BC #### [facility] [address] [address] [address] Darrick Cao PLT 345 103/ul Normal 150-450 [facility] Comment on above: Performed By: #### C BC #### [facility] [address] [address] [address] Darrick Cao RBC 4.58 106/ul Normal 4.20-5.40 [facility] Comment on above: Performed By: #### C BC #### [facility] [address] [place] [address] Dr. Darrick Cao WBC 10.1 103/ul Normal 4.0-11.0 [facility] Comment on above: Performed By: #### C BC #### [facility] [address] [address] [address] Darrick Cao CRPon 04-22-2022 CRP 5.2 mg/dL Critically high <=1.0 [facility] Comment on above: Performed By: #### B MP, CRP ####[facility] [address] [address]Dr. Darrick Cao CULTURE BLOODon 04-22-2022 Microscopic examination of blood, culture Culture Observations: NO GROWTH AT 5 DAYS. Normal [facility] Comment on above: Performed By: #### B LDCX2 #### [facility] [address] [place] [address] Dr. Darrick Cao Microscopic examination of blood, culture Culture Observations: NO GROWTH AT 5 DAYS. Normal [facility] Comment on above: Performed By: #### B LDCX1 #### [facility] [address] [address] [address] Darrick Cao [facility]01 SARS-CoV-2 (COVID-19) RNA ALEKSANDR+probe Ql (Unsp spec) Not detected Normal NOT DETECTED [facility] Comment on above: Result Comment: When [...] for this test is supported by the [place] of [employer] and [employer] Service's declaration that [...] used). Performed By: #### P OCGLUC #### [facility] [address] [place] [address] Dr. Darrick Cao LACTATE/LACTIC ACIDon 2021 Lactate [Moles/Vol] 1.3 mmol/L Normal 0.4-1.9 [facility] Comment on above: Performed By: #### P OCGLUC #### [facility] [address] [place] [address] Dr. Darrick Cao POINT OF CARE GLUCOSEon 04-01 Glucose [Mass/Vol] 96 mg/dL Normal 74-106 [facility] Comment on above: Performed By: #### P OCGLUC #### [facility] [address] [address] [address] Darrick Cao PROF CHEM 8 (BAS METB)on Anion gap [Moles/Vol] 12.3 mmol/L Normal [facility] Comment on above: Performed By: #### B MP, CRP ####[facility] [address] [address]Dr. Darrick Cao Calcium [Mass/Vol] 9.2 mg/dL Normal 8.5-10.1 [facility] Comment on above: Performed By: #### B MP, CRP ####[facility] [address] [address]Dr. Darrick Cao Chloride [Moles/Vol] 104 mmol/L Normal 98-107 [facility] Comment on above: Performed By: #### B MP, CRP ####[facility] [address] [address]Dr. Darrick Cao CO2 [Moles/Vol] 26.4 mmol/L Normal 21.0-32.0 [facility] Comment on above: Performed By: #### B MP, CRP ####[facility] [address] [address]Dr. Darrick aCo Creatinine [Mass/Vol] 1.19 mg/dL Critically high 0.55-1.02 [facility] Comment on above: Performed By: #### B MP, CRP ####[facility] [address] [address]Dr. Darrick Cao EGFR-AF NAMIBIAN 56 mL/min/1.73m2 Critically low >=60 [facility] Comment on above: Performed By: #### B MP, CRP ####[facility] [address] [address]Dr. Darrick Cao EGFR-NON AF NAMIBIAN 46 mL/min/1.73m2 Critically low >=60 [facility] Comment on above: Performed By: #### B MP, CRP ####[facility] [address] [id number]. Darrick Cao Glucose [Mass/Vol] 124 mg/dL Critically high 74-106 [facility] Comment on above: Performed By: #### B MP, CRP ####[facility] [address] [id number]. Darrick Cao Potassium [Moles/Vol] 4.7 mmol/L Normal 3.5-5.1 [facility] Comment on above: Performed By: #### B MP, CRP ####[facility] [address] [id number]. Darrick Cao Sodium [Moles/Vol] 138 mmol/L Normal 136-145 [facility] Comment on above: Performed By: #### B MP, CRP ####[facility] [address] [id number]. Darrick Cao Urea nitrogen [Mass/Vol] 21.0 mg/dL Critically high 7.0-18.0 [facility] Comment on above: Performed By: #### B MP, CRP ####[facility] [address] [id number]. Darrick Cao Urea nitrogen/Creatinine [Mass ratio] 17.6 mg/mg Normal [facility] Comment on above: Performed By: #### B MP, CRP ####[facility] [address] [phone]. Darrick Cao SED RATE [facility] 2021 SED RATE 64 mm/hr Critically high <=30 [facility] Comment on above: Performed By: #### P OCGLUC #### [facility] [address] [place], [place] [address] ANKLE LT WO [...] by: SHAWNEE KELLY Date: 2022-03-11 10:18 Normal [facility] [employer] Quick Testingon 2020 Result Negative [employer] Other Operative Reporton Operative Report MR#: [id number] [facility] Pt. Name: Nicol Knowles Room #: 0C Discharge Date: Birthdate: 1960 OPERATIVE REPORT DATE OF SURGERY: 12/16/2020 SURGEON: David Lr M.D. PREOPERATIVE DIAGNOSIS: Trigger digits, right long finger and thumb. POSTOPERATIVE DIAGNOSIS: Trigger digits, right long finger and thumb. PROCEDURE: A1 leigha release, right long finger and thumb. RN [facility]: Hay Mast M.D. ANESTHESIA: MAC. INDICATION FOR [...] A/David Lr M.D. Date Trans: 12/16/2020 09:13 A/mmo [id number] cc: Waqas Pierce M.D. [address] [place] [id number] Normal [facility] POC GLUCOSE LABon 12-16-2020 Glucose [Mass/Vol] 103 mg/dL High 70-100 [facility] Comment on above: Performed By: #### 8 [id number] #### [facility] [address] Vital Signs Date Time Vital Sign Value Performing Clinician Facility 06-19-2024 12:54-0400 Body mass index (BMI) [Ratio] 47.9 kg/m2 [facility] 06-19-2024 11:16-0400 Body height 170.18 cm [facility] 06-19-2024 11:16-0400 Body weight 129 kg [facility] 06-16-2024 09:58-0400 Body height 170.18 cm [facility] 06-16-2024 09:58-0400 Body mass index (BMI) [Ratio] 44.9 kg/m2 [facility] 06-16-2024 09:58-0400 Body weight 130.18 kg [facility] 06-16-2024 09:58-0400 Diastolic blood pressure 75 mm[Hg] [facility] 06-16-2024 09:58-0400 Heart rate 83 /min [facility] 06-16-2024 09:58-0400 Systolic blood pressure 114 mm[Hg] [facility] 05-23-2024 10:46-0400 Body mass index (BMI) [Ratio] 47.9 kg/m2 [facility] 05-23-2024 09:49-0400 Body height 170.18 cm [facility] 05-23-2024 09:49-0400 Body weight 127.45 kg [facility] 02-21-2024 10:03-0400 Body height 170.18 cm MD Waqas Pierce Work Phone: [facility] 02-21-2024 10:03-0400 Body mass index (BMI) [Ratio] 42.3 kg/m2 MD Waqas Pierce Work Phone: [facility] 02-21-2024 10:03-0400 Body weight 122.49 kg MD Waqas Pierce Work Phone: [facility] 02-21-2024 10:03-0400 Diastolic blood pressure 88 mm[Hg] MD Waqas Pierce Work Phone: [facility] 02-21-2024 10:03-0400 Heart rate 85 /min MD Waqas Pierce Work Phone: [facility] 02-21-2024 10:03-0400 Respiratory rate 18 /min MD Waqas Pierce Work Phone: [facility] 02-21-2024 10:03-0400 SaO2% (BldA) [Mass fraction] 97 % MD Waqas Pierce Work Phone: [facility] 02-21-2024 10:03-0400 Systolic blood pressure 142 mm[Hg] MD Waqas Pierce Work Phone: [facility] 01-15-2024 10:50-0400 Body height 170.18 cm [facility] 01-15-2024 10:50-0400 Body mass index (BMI) [Ratio] 47.9 kg/m2 [facility] 01-15-2024 10:50-0400 Body weight 138.88 kg [facility] 01-10-2024 09:49-0400 Body mass index (BMI) [Ratio] 47.9 kg/m2 MD Waqas Pierce Work Phone: [facility] 01-10-2024 08:37-0400 Body height 170.18 cm MD Waqas Pierce Work Phone: [facility] 01-10-2024 08:37-0400 Body weight 117.02 kg MD Waqas Pierce Work Phone: [facility] 01-03-2024 10:52-0400 Body height 170.18 cm MD Waqas Pierce Work Phone: [facility] 01-03-2024 10:52-0400 Body mass index (BMI) [Ratio] 39.8 kg/m2 MD Waqas Pierce Work Phone: [facility] 01-03-2024 10:52-0400 Body weight 115.41 kg MD Waqas Pierce Work Phone: [facility] 01-03-2024 10:52-0400 Diastolic blood pressure 89 mm[Hg] MD Waqas Pierce Work Phone: [facility] 01-03-2024 10:52-0400 Heart rate 87 /min MD Waqas Pierce Work Phone: [facility] 01-03-2024 10:52-0400 Respiratory rate 18 /min MD Waqas Pierce Work Phone: [facility] 01-03-2024 10:52-0400 SaO2% (BldA) [Mass fraction] 99 % MD Waqas Piecre Work Phone: [facility] 01-03-2024 10:52-0400 Systolic blood pressure 128 mm[Hg] MD Waqas Pierce Work Phone: [facility] 12-10-2023 11:39-0400 Body mass index (BMI) [Ratio] 47.9 kg/m2 MD Waqas Pierce Work Phone: [facility] 12-10-2023 10:57-0400 Body height 170.18 cm MD Waqas Pierce Work Phone: [facility] 12-10-2023 10:57-0400 Body weight 117.02 kg MD Waqas Pierce Work Phone: [facility] 11-22-2023 10:59-0500 Body height 170.18 cm [facility] 11-22-2023 10:59-0500 Body mass index (BMI) [Ratio] 41.1 kg/m2 [facility] 11-22-2023 10:59-0500 Body weight 119.01 kg [facility] 11-22-2023 10:59-0500 Diastolic blood pressure 84 mm[Hg] [facility] 11-22-2023 10:59-0500 Heart rate 72 /min [facility] 11-22-2023 10:59-0500 Respiratory rate 18 /min [facility] 11-22-2023 10:59-0500 SaO2% (BldA) [Mass fraction] 99 % [facility] 11-22-2023 10:59-0500 Systolic blood pressure 132 mm[Hg] [facility] 11-21-2023 09:48-0500 Body height 170.18 cm [facility] 11-21-2023 09:48-0500 Body mass index (BMI) [Ratio] 40.7 kg/m2 [facility] 11-21-2023 09:48-0500 Body temperature 98.2 [degF] [facility] 11-21-2023 09:48-0500 Body weight 117.99 kg [facility] 11-21-2023 09:48-0500 Diastolic blood pressure 82 mm[Hg] [facility] 11-21-2023 09:48-0500 Heart rate 105 /min [facility] 11-21-2023 09:48-0500 Systolic blood pressure 131 mm[Hg] [facility] 11-19-2023 09:52-0500 Body height 170.18 cm [facility] 11-19-2023 09:52-0500 Body mass index (BMI) [Ratio] 40.8 kg/m2 [facility] 11-19-2023 09:52-0500 Body weight 118.38 kg [facility] 11-01-2023 11:15-0500 Body height 170.18 cm Waqas Pierce Other [facility] 11-01-2023 11:15-0500 Body mass index (BMI) [Ratio] 40.75 kg/m2 Waqas Pierce Other [employer] Other 11-01-2023 11:15-0500 Body weight 118.03 kg Waqas Pierce Other [employer] Other 11-01-2023 11:15-0500 Body weight 118.02 kg [facility] 11-01-2023 11:15-0500 Diastolic blood pressure 87 mm[Hg] Waqas Pierce Other [facility] 11-01-2023 11:15-0500 Systolic blood pressure 127 mm[Hg] Waqas Pierce Other [facility] 10-15-2023 10:00-0500 Body height 170.18 cm Grecia Fitt Other [facility] 10-15-2023 10:00-0500 Body mass index (BMI) [Ratio] 40.08 kg/m2 Grecia Fitt Other [facility] [employer] Other 10-15-2023 10:00-0500 Body weight 116.08 kg Grecia Fitt Other [facility] [employer] Other 10-15-2023 10:00-0500 Body weight 116.07 kg [facility] 09-18-2023 11:00-0500 Body height 170.18 cm Rolando Castellanos Other [facility] 09-18-2023 11:00-0500 Body mass index (BMI) [Ratio] 40.45 kg/m2 Rolando Castellanos Other [employer] Other 09-18-2023 11:00-0500 Body weight 117.16 kg Rolando Castellanos Other [facility] 09-18-2023 11:00-0500 Diastolic blood pressure 80 mm[Hg] Rolando Castellanos Other [facility] 09-18-2023 11:00-0500 Respiratory rate 18 /min Rolando Castellanos Other [employer] Other 09-18-2023 11:00-0500 SaO2% (BldA) [Mass fraction] 98 % Rolando Reyesdiff Other [employer] Other 09-18-2023 11:00-0500 Systolic blood pressure 115 mm[Hg] Rolando Reyesdiff Other [facility] 09-17-2023 10:45-0500 Body height 170.18 cm [employer] Other [facility] 09-17-2023 10:45-0500 Body mass index (BMI) [Ratio] 40.65 kg/m2 [employer] Other [employer] Other 09-17-2023 10:45-0500 Body weight 117.75 kg [employer] Other [facility] 09-03-2023 12:45-0500 Diastolic blood pressure 60 mm[Hg] MD Waqas Pierce Work Phone: [facility] 09-03-2023 12:45-0500 Heart rate 70 /min MD Waqas Pierce Work Phone: [facility] 09-03-2023 12:45-0500 Inhaled oxygen flow rate 1 L/min MD Wqaas Pierce Work Phone: [facility] 09-03-2023 12:45-0500 Respiratory rate 16 /min MD Waqas Pierce Work Phone: [facility] 09-03-2023 12:45-0500 SaO2% (BldA) [Mass fraction] 97 % MD Waqas Pierce Work Phone: [facility] 09-03-2023 12:45-0500 Systolic blood pressure 132 mm[Hg] MD Waqas Pierce Work Phone: [facility] 09-03-2023 10:21-0500 Body temperature 98.4 [degF] MD Waqas Pierce Work Phone: [facility] 09-03-2023 07:14-0500 Body height 172.72 cm MD Waqas Pierce Work Phone: [facility] 09-03-2023 07:14-0500 Body mass index (BMI) [Ratio] 39.5 kg/m2 MD Waqas Pierce Work Phone: [facility] 09-03-2023 07:14-0500 Body weight 118 kg MD Waqas Pierce Work Phone: [facility] 08-21-2023 14:30-0500 Body height 170.18 cm Waqas Pierce Other [employer] [employer] Other 08-21-2023 14:30-0500 Body mass index (BMI) [Ratio] 39.46 kg/m2 Waqas Pierce Other [employer] Other 08-21-2023 14:30-0500 Body weight 114.31 kg Waqas Pierce Other [employer] Other 08-21-2023 14:30-0500 Diastolic blood pressure 84 mm[Hg] Waqas Pierce Other [employer] Other 08-21-2023 14:30-0500 Systolic blood pressure 138 mm[Hg] Waqas Pierce Other [employer] Other 08-13-2023 10:45-0500 Body height 170.18 cm Grecia Fitt Other [employer] Other 08-13-2023 10:45-0500 Body mass index (BMI) [Ratio] 41.22 kg/m2 Grecia Fitt Other [employer] Other 08-13-2023 10:45-0500 Body weight 119.39 kg Grecia Fitt Other [employer] Other 07-26-2023 11:30-0400 Body height 170.18 cm Rolando Reyesdiff Other [employer] Other 07-26-2023 11:30-0400 Body mass index (BMI) [Ratio] 41.86 kg/m2 Rolando Reyesdiff Other [employer] Other 07-26-2023 11:30-0400 Body weight 121.25 kg Rolando Reyesdiff Other [employer] Other 07-26-2023 11:30-0400 Diastolic blood pressure 77 mm[Hg] Rolando Reyesdiff Other [employer] Other 07-26-2023 11:30-0400 Respiratory rate 18 /min Rolando Reyesdiff Other [employer] Other 07-26-2023 11:30-0400 SaO2% (BldA) [Mass fraction] 98 % Rolando Reyesdiff Other [employer] Other 07-26-2023 11:30-0400 Systolic blood pressure 121 mm[Hg] Rolando Reyesdiff Other [employer] Other 07-23-2023 10:45-0400 Body height 170.18 cm Grecia Fitt Other [employer] Other 07-23-2023 10:45-0400 Body mass index (BMI) [Ratio] 41.78 kg/m2 Grecia Fitt Other [employer] Other 07-23-2023 10:45-0400 Body weight 121.02 kg Grecia Fitt Other [employer] Other 06-27-2023 15:15-0400 Body height 170.18 cm David Granville II Other [employer] Other 06-27-2023 15:15-0400 Body mass index (BMI) [Ratio] 41.97 kg/m2 David Granville II Other [employer] Other 06-27-2023 15:15-0400 Body weight 121.56 kg David Granville II Other [employer] Other 06-18-2023 11:30-0400 Body height 170.18 cm Grecia Fitt Other [employer] Other 06-18-2023 11:30-0400 Body mass index (BMI) [Ratio] 42.52 kg/m2 Grecia Fitt Other [employer] Other 06-18-2023 11:30-0400 Body weight 123.15 kg Grecia Fitt Other [employer] Other 06-14-2023 10:00-0400 Body height 170.18 cm Rolando Castellanos Other [employer] Other 06-14-2023 10:00-0400 Body mass index (BMI) [Ratio] 42.89 kg/m2 Rolando Castellanos Other [employer] Other 06-14-2023 10:00-0400 Body weight 124.24 kg Rolando Castellanos Other [employer] Other 06-14-2023 10:00-0400 Diastolic blood pressure 87 mm[Hg] Rolando Reyesdiff Other [employer] Other 06-14-2023 10:00-0400 Respiratory rate 18 /min Rolando Reyesdiff Other [employer] Other 06-14-2023 10:00-0400 SaO2% (BldA) [Mass fraction] 100 % Rolando Reyesdiff Other [employer] Other 06-14-2023 10:00-0400 Systolic blood pressure 124 mm[Hg] Rolando Reyesdiff Other [employer] Other 06-11-2023 12:45-0400 Body height 170.18 cm Waqas Pierce Other [employer] Other 06-11-2023 12:45-0400 Body mass index (BMI) [Ratio] 42.41 kg/m2 Waqas Pierce Other [employer] Other 06-11-2023 12:45-0400 Body weight 122.83 kg Waqas Pierce Other [employer] Other 06-11-2023 12:45-0400 Diastolic blood pressure 76 mm[Hg] Waqas Pierce Other [employer] Other 06-11-2023 12:45-0400 Respiratory rate 12 /min Waqas Pierce Other [employer] Other 06-11-2023 12:45-0400 Systolic blood pressure 124 mm[Hg] Waqas Pierce Other [employer] Other 05-14-2023 10:00-0400 Body height 170.18 cm Grecia Fitt Other [employer] Other 05-14-2023 10:00-0400 Body mass index (BMI) [Ratio] 43.05 kg/m2 Grecia Fitt Other [employer] Other 05-14-2023 10:00-0400 Body weight 124.69 kg Grecia Fitt Other [employer] Other 04-16-2023 10:00-0400 Body height 170.18 cm Grecia Fitt Other [employer] Other 04-16-2023 10:00-0400 Body mass index (BMI) [Ratio] 43.94 kg/m2 Grecia Fitt Other [employer] Other 04-16-2023 10:00-0400 Body weight 127.28 kg Grecia Fitt Other [employer] Other 01-11-2023 11:00-0400 Body height 170.18 cm Grecia Fitt Other [employer] Other 01-11-2023 11:00-0400 Body mass index (BMI) [Ratio] 47.37 kg/m2 Grecia Fitt Other [employer] Other 01-11-2023 11:00-0400 Body weight 137.21 kg Grecia Fitt Other [employer] Other 11-16-2022 11:45-0500 Body height 170.18 cm Rolando Castellanos Other [employer] Other 11-16-2022 11:45-0500 Body mass index (BMI) [Ratio] 47 kg/m2 Rolando Reyesdiff Other [employer] Other 11-16-2022 11:45-0500 Body weight 136.13 kg Rolando Reyesdiff Other [employer] Other 11-16-2022 11:45-0500 Diastolic blood pressure 85 mm[Hg] Rolando Reyesdiff Other [employer] Other 11-16-2022 11:45-0500 Respiratory rate 18 /min Rolando Reyesdiff Other [employer] Other 11-16-2022 11:45-0500 SaO2% (BldA) [Mass fraction] 97 % Rolando Reyesdiff Other [employer] Other 11-16-2022 11:45-0500 Systolic blood pressure 114 mm[Hg] Rolando Reyesdiff Other [employer] Other 11-14-2022 09:15-0500 Body height 170.18 cm Grecia Henryroberto Other [employer] Other 11-08-2022 14:57-0500 Blood Pressure Location Efrain RABAGOL [facility] [place] 11-08-2022 14:57-0500 Diastolic blood pressure 74 mm[Hg] Efrain RABAGOL [facility] [place] 11-08-2022 14:57-0500 Heart rate 80 /min Efrain RABAGOL [facility] [place] 11-08-2022 14:57-0500 Respiratory rate 16 /min Efrain RABAGOL [facility] [place] 11-08-2022 14:57-0500 Systolic blood pressure 118 mm[Hg] Efrain RABAGOSharan [facility] [place] 10-23-2022 10:30-0500 Body height 170.18 cm Waqas Pierce Other [employer] Other 10-23-2022 10:30-0500 Body mass index (BMI) [Ratio] 46.04 kg/m2 Waqas Pierce Other [employer] Other 10-23-2022 10:30-0500 Body weight 133.36 kg Waqas Pierce Other [employer] Other 10-23-2022 10:30-0500 Diastolic blood pressure 88 mm[Hg] Waqas Pierce Other [employer] Other 10-23-2022 10:30-0500 Systolic blood pressure 148 mm[Hg] Waqas Pierce Other [employer] Other 10-13-2022 10:15-0500 Body height 170.18 cm Rachelher Vela Other [employer] Other 10-13-2022 10:15-0500 Body mass index (BMI) [Ratio] 45.89 kg/m2 Rachelher Davidsonler Other [employer] Other 10-13-2022 10:15-0500 Body weight 132.9 kg Rachel Missler Other [employer] Other 10-13-2022 10:15-0500 Diastolic blood pressure 89 mm[Hg] Rachel Missler Other [employer] Other 10-13-2022 10:15-0500 Respiratory rate 18 /min Rachel Missler Other [employer] Other 10-13-2022 10:15-0500 SaO2% (BldA) [Mass fraction] 96 % Rachel Vela Other [employer] Other 10-13-2022 10:15-0500 Systolic blood pressure 138 mm[Hg] Rachel Vela Other [employer] Other 09-06-2022 16:00-0500 Body height 170.18 cm [employer] Other [employer] Other 09-06-2022 16:00-0500 Body mass index (BMI) [Ratio] 45.57 kg/m2 [employer] Other [employer] Other 09-06-2022 16:00-0500 Body weight 132 kg David Bartolo II Other [employer] Other 07-25-2021 18:45-0400 Body height 170.18 cm Mallory Yuen Other [employer] Other 07-25-2021 18:45-0400 Body mass index (BMI) [Ratio] 42.91 kg/m2 Mallory Yuen Other [employer] Other 07-25-2021 18:45-0400 Body temperature 98.6 [degF] Mallory Yuen Other [employer] Other 07-25-2021 18:45-0400 Body weight 124.29 kg Mallory Yuen Other [employer] Other 07-25-2021 18:45-0400 Respiratory rate 18 /min Mallory Yuen Other [employer] Other 07-25-2021 18:45-0400 SaO2% (BldA) [Mass fraction] 96 % Mallory Yuen Other [employer] Other Encounters Encounter Date Encounter Type Care Provider Facility Start: 06-19-2024 End: 06-19-2024 ambulatory [facility] Work Phone: Start: 06-19-2024 End: 06-19-2024 Patient encounter procedure [facility] Work Phone: Start: 06-17-2024 Non-patient / Non-visit [facility] [employer] Work Phone: Start: 06-16-2024 Patient encounter procedure [facility] Start: 06-16-2024 End: 06-16-2024 ambulatory [facility] Work Phone: Start: 06-16-2024 End: 06-16-2024 Patient encounter procedure [facility] Work Phone: Start: 05-23-2024 End: 05-23-2024 ambulatory [facility] Work Phone: Start: 05-23-2024 End: 05-23-2024 Patient encounter procedure [facility] Work Phone: Start: 02-21-2024 End: 02-21-2024 ambulatory MD Waqas Pierce Work Phone: [facility] Work Phone: Start: 02-21-2024 End: 02-21-2024 Patient encounter procedure MD Waqas Pierce Work Phone: [facility] Work Phone: Start: 01-15-2024 End: 01-15-2024 ambulatory NON STAFF [facility] Work Phone: Start: 01-15-2024 End: 01-15-2024 Patient encounter procedure [facility] Work Phone: Start: 01-11-2024 Non-patient / Non-visit [facility] [employer] Work Phone: Start: 01-10-2024 End: 01-10-2024 ambulatory MD Waqas Pierce Work Phone: [facility] Work Phone: Start: 01-10-2024 End: 01-10-2024 Patient encounter procedure MD Waqas Pierce Work Phone: [facility] Work Phone: Start: 01-03-2024 End: 01-03-2024 ambulatory MD Waqas Pierce Work Phone: [facility] Work Phone: Start: 01-03-2024 End: 01-03-2024 Patient encounter procedure MD Waqas Pierce Work Phone: [facility] Work Phone: Start: 12-26-2023 End: 12-26-2023 ambulatory MD Waqas Pierce Work Phone: [facility] Work Phone: Start: 12-26-2023 End: 12-26-2023 Patient encounter procedure MD Waqas Pierce Work Phone: [facility] Work Phone: Start: 12-10-2023 End: 12-10-2023 Patient encounter procedure MD Waaqs Pierce Work Phone: [facility] Work Phone: Start: 12-04-2023 Registered Recurring MD Waqas Pierce Work Phone: [facility] Start: 11-28-2023 End: 11-28-2023 Patient encounter procedure MD Waqas Pierce Work Phone: [facility] Work Phone: Start: 11-28-2023 End: 11-28-2023 Patient encounter procedure MD Waqas Pierce Work Phone: [facility] Start: 11-28-2023 End: 11-28-2023 ambulatory David Mcfarland II Facility:[facility] Start: 11-22-2023 End: 11-22-2023 ambulatory NON STAFF [facility] Work Phone: Start: 11-22-2023 End: 11-22-2023 Patient encounter procedure [facility] Work Phone: Start: 11-21-2023 End: 11-21-2023 ambulatory NON STAFF [facility] Work Phone: Start: 11-21-2023 End: 11-21-2023 Patient encounter procedure [facility] Work Phone: Start: 11-20-2023 Registered Recurring MD Waqas Pierce Work Phone: [facility] [employer] Start: 11-19-2023 End: 11-19-2023 ambulatory NON STAFF [facility] Work Phone: Start: 11-19-2023 End: 11-19-2023 Patient encounter procedure [facility] Work Phone: Start: 11-01-2023 End: 11-01-2023 ambulatory Waqas Pierce Other [employer] Other Start: 11-01-2023 Office outpatient vi sit 15 minutes Waqas Pierce [facility] Start: 11-01-2023 End: 11-01-2023 Patient encounter procedure [facility]- Start: 10-31-2023 End: 10-31-2023 ambulatory Waqas Pierce Other [employer] Other Start: 10-31-2023 Telephone encounter Waqas Pierce [facility] Start: 10-23-2023 Registered Recurring MD Waqas Pierce Work Phone: [facility] [employer] Start: 10-17-2023 Postop follow up vis it related to original px David Bartolo II [facility] Start: 10-17-2023 End: 10-17-2023 Patient encounter procedure [facility] Start: 10-17-2023 End: 10-17-2023 ambulatory NON STAFF [facility] Work Phone: Start: 10-15-2023 [facility] F/ U [employer] Debate Director Grecia Carrera [facility] Start: 10-15-2023 Registered Recurring [facility] Work Phone: Start: 10-15-2023 End: 10-15-2023 ambulatory David Mcfarland II [employer] Other Start: 10-15-2023 End: 10-15-2023 Patient encounter procedure [facility] Work Phone: Start: 10-02-2023 End: 10-02-2023 ambulatory Rolando Castellanos Other [facility] [employer] Other Start: 10-02-2023 Telephone encounter Rolando Castellanos [facility] Start: 09-19-2023 End: 09-19-2023 ambulatory David Granville II Other [employer] Other Start: 09-19-2023 Postop follow up vis it related to original px Carrie Nairarney [facility] Start: 09-19-2023 Telephone encounter David Granville II [facility] Start: 09-19-2023 End: 09-19-2023 Patient encounter procedure [facility] Work Phone: Start: 09-18-2023 End: 09-18-2023 ambulatory Rolando Castellanos Other [employer] Other Start: 09-18-2023 Follow-up encounter Rolando Vasquez [facility] Start: 09-18-2023 End: 09-18-2023 Patient encounter procedure [facility] Work Phone: Start: 09-17-2023 ([facility] RD FU) [facility] F/ U [employer] Debate Director Grecia Carrera [facility] Start: 09-17-2023 End: 09-17-2023 ambulatory Grecia Carrera Other [employer] Other Start: 09-17-2023 End: 09-17-2023 Patient encounter procedure [facility] Work Phone: Start: 09-10-2023 End: 09-10-2023 ambulatory David Mcfarland II Other [employer] Other Start: 09-10-2023 Telephone encounter David Mcfarland II [facility] Start: 09-03-2023 End: 09-03-2023 Admission to same day surgery center MD Waqas Pierce Work Phone: [facility] [place] Start: 09-03-2023 End: 09-03-2023 ambulatory MD Waqas Pierce Work Phone: [facility] Work Phone: Start: 08-31-2023 (Prolonged) Prolonge d Services David Mcfarland II [facility] Start: 08-31-2023 Registered Recurring MD Waqas Pierce Work Phone: [facility]-Physical Therapy [place] Start: 08-31-2023 End: 08-31-2023 ambulatory NON STAFF [employer] Other Start: 08-30-2023 End: 08-30-2023 ambulatory David Mcfarland II Other [employer] Other Start: 08-30-2023 Office outpatient vi sit 40 minutes David Mcfarland II [facility] Start: 08-28-2023 End: 08-28-2023 Patient encounter procedure MD Waqas Pierce Work Phone: [facility] Work Phone: Start: 08-28-2023 End: 08-28-2023 ambulatory MD Waqas Pierce Work Phone: [facility] Work Phone: Start: 08-28-2023 Registered Recurring [facility] Start: 08-21-2023 End: 08-21-2023 ambulatory Waqas Pierce Other [employer] Other Start: 08-21-2023 Encounter for other preprocedural examination Waqas Pierce [facility] Start: 08-21-2023 Office outpatient vi sit 25 minutes Waqas Pierce [facility] Start: 08-15-2023 End: 08-15-2023 Patient encounter procedure MD Waqas Pierce Work Phone: [facility] Start: 08-15-2023 End: 08-15-2023 ambulatory MD Waqas Pierce Work Phone: [facility] Work Phone: Start: 08-13-2023 Registered Recurring MD Waqas Pierce Work Phone: [facility] Work Phone: Start: 08-13-2023 ([facility] FU) [facility] F/ U [employer] Debate Director Grecia Carrera [facility] Start: 08-13-2023 End: 08-13-2023 ambulatory Grecia Carrera Other [employer] Other Start: 08-06-2023 End: 08-06-2023 ambulatory David Mcfarland II Other [employer] Other Start: 08-06-2023 Telephone encounter David Mcfarland II [facility] Start: 08-01-2023 End: 08-01-2023 ambulatory Waqas Pierce Other [employer] Other Start: 08-01-2023 Telephone encounter Waqas Pierce [facility] Start: 07-31-2023 (Televisit) Televisit Waqas Pierce [facility] Start: 07-31-2023 End: 07-31-2023 ambulatory Waqas Pierce Other [employer] Other Start: 07-26-2023 End: 07-26-2023 ambulatory Rolando Castellanos Other [employer] Other Start: 07-26-2023 Follow-up encounter Rolando dhillon [facility] Start: 07-26-2023 Telephone encounter David Mcfarland II [facility] Start: 07-23-2023 ([facility] FU) [facility] F/ U [employer] Debate Director Grecia Carrera [facility] Start: 07-23-2023 End: 07-23-2023 ambulatory Grecia Carrera Other [employer] Other Start: 07-16-2023 End: 07-16-2023 ambulatory KIMBERLY AMADOR [facility] Start: 07-09-2023 End: 07-09-2023 ambulatory Rolando Castellanos Other [employer] Other Start: 07-09-2023 Telephone encounter Rolando dhillon [facility] Start: 06-27-2023 End: 06-27-2023 ambulatory David Bartolo BAUGH Other [employer] Other Start: 06-27-2023 Office outpatient vi sit 25 minutes David Mcfarland II [facility] Start: 06-19-2023 End: 06-19-2023 ambulatory Waqas Pierce Other [employer] Other Start: 06-19-2023 Telephone encounter Waqas Kari [facility] Start: 06-18-2023 ([facility] RD FU) [facility] F/ U [employer] Debate Director Grecia Carrera [facility] Start: 06-18-2023 End: 06-18-2023 ambulatory Grecia Henryt Other [employer] Other Start: 06-14-2023 End: 06-14-2023 ambulatory Rolando Castellanos Other [employer] Other Start: 06-14-2023 Follow-up encounter Rolando Castellanos [facility] Start: 06-11-2023 End: 06-11-2023 ambulatory Waqas Kari Other [employer] Other Start: 06-11-2023 Encounter for genera l adult medical examination without abnormal findings Waqas Pierce [facility] Start: 06-11-2023 Periodic preventive med est patient 40-64yrs Waqas Kari [facility] Start: 06-01-2023 End: 06-01-2023 ambulatory Waqas Pierce Other [employer] Other Start: 06-01-2023 Telephone encounter Waqas Pierce [facility] Start: 05-28-2023 End: 05-28-2023 ambulatory Waqas Kari Other [employer] Other Start: 05-28-2023 Telephone encounter Waqas Kari [facility] Start: 05-14-2023 ([facility] FU) [facility] F/ U [employer] Debate Director Grecia Carrera [facility] Start: 05-14-2023 End: 05-14-2023 ambulatory Grecia Henryt Other [employer] Other Start: 04-16-2023 ([facility] FU) [facility] F/ U [employer] Debate Director Grecia Carrera [facility] Start: 04-16-2023 End: 04-16-2023 ambulatory Grecia Henryt Other [employer] Other Start: 03-28-2023 ambulatory NON STAFF Facility:[facility] Start: 03-21-2023 End: 03-21-2023 ambulatory Waqas Pierce Other [employer] Other Start: 03-21-2023 Telephone encounter Waqas Pierce [facility] Start: 02-22-2023 ambulatory MER MAYBERRY . Facil ity:[facility]1 Start: 02-13-2023 End: 02-14-2023 ambulatory AMY KASPER Facility:[facility] Start: 01-31-2023 End: 01-31-2023 ambulatory Waqas Pierce Other [employer] Other Start: 01-31-2023 Telephone encounter Waqas Pierce [facility] [address] Start: 01-30-2023 End: 01-31-2023 ambulatory AMY Iverson [facility] Facility:[facility] Start: 01-19-2023 End: 01-20-[address] ROLANDO CASTELLANOS Facility:[facility] Start: 01-11-2023 ([facility] WMNI) WMN Init ial Provider Grecia Carrera [facility] Start: 01-11-2023 End: 01-11-2023 ambulatory Grecia Henryt Other [employer] Other Start: 01-09-2023 End: 01-10-2023 ambulatory AMY Iverson [facility] Facility:[facility]1 Start: 12-25-2022 End: 12-25-2022 ambulatory Junior Mcgowan Other [employer] Other Start: 12-25-2022 Telephone encounter Junior Felter [facility] Start: 12-22-2022 End: 12-23-2022 ambulatory AMY Iverson SANDRAUDAY Facility:[facility] Start: 12-18-2022 End: 12-18-2022 ambulatory Junior Mcgowan Other [employer] Other Start: 12-18-2022 Telephone encounter Junior Roslyn DARNELL [facility] Start: 12-15-2022 End: 12-15-2022 ambulatory Waqas Pierce Other [employer] Other Start: 12-15-2022 Telephone encounter Waqas Pierce [facility] Start: 12-12-2022 Telephone encounter Rolando dhillon [facility] Start: 12-12-2022 End: 12-13-[address] WAQAS PIERCE [employer] Other Start: 12-06-2022 Telephone encounter Waqas Pierce [facility] Start: 12-06-2022 End: 12-07-2022 ambulatory Efrain CORTES [employer] Other Start: 12-01-2022 End: 12-02-[address] WAQAS PIERCE Facility:[facility] Start: 11-20-2022 End: 11-20-2022 ambulatory Rolando Castellanos Other [employer] Other Start: 11-20-2022 Telephone encounter Rolando dhillon [facility] Start: 11-17-2022 Telephone encounter Waqas Pierce [facility] Start: 11-17-2022 End: 11-18-[address] WAQAS PIERCE [employer] Other Start: 11-16-2022 End: 11-16-2022 ambulatory Rolando Castellanos Other [employer] Other Start: 11-16-2022 Follow-up encounter Rolando dhillon [facility] Start: 11-14-2022 End: 11-14-2022 ambulatory Grecia Carrera Other [employer] Other Start: 11-14-2022 IBT FOR OBESITY GROU P 2-10 30M Grecia Carrera [facility] Start: 11-13-2022 End: 11-13-2022 ambulatory Waqas Pierce Other [employer] Other Start: 11-13-2022 Telephone encounter Waqas Pierce [facility] Start: 11-08-2022 End: 11-09-2022 ambulatory Efrain CORTES Facility:[facility] Start: 11-08-2022 End: 11-08-2022 Patient encounter procedure Efrain CORTES General Surgery [facility] [place] Start: 11-06-2022 End: 11-07-[address] WAQAS PIERCE Facility: Start: 11-05-2022 Encounter for gynecological examination (general) (routine) without abnormal findings DR FRIEDA LOCKE . [facility] Start: 11-03-2022 End: 11-04-[address] WAQAS PIERCE Facility:[facility] Start: 10-30-2022 End: 10-31-[address] WAQAS PIERCE Facility: Start: 10-25-2022 End: 10-25-2022 ambulatory Waqas Pierce Other [employer] Other Start: 10-25-2022 Telephone encounter Waqas Pierce [facility] Start: 10-24-2022 End: 10-24-2022 ambulatory Rolando Castellanos Other [employer] Other Start: 10-24-2022 Telephone encounter Rolando dhillon [facility] Start: 10-23-2022 Office outpatient vi sit 15 minutes Waqas Pierce [facility] Start: 10-23-2022 Telephone encounter Waqas Pierce [facility] Start: 10-23-2022 End: 10-24-2022 ambulatory NON STAFF [facility] Work Phone: Start: 10-23-2022 End: 10-23-2022 Departed Referred [facility] [place] Work Phone: Start: 10-20-2022 End: 10-20-2022 ambulatory Waqas Pierce Other [employer] Other Start: 10-20-2022 Telephone encounter Waqas Pierce [facility] Start: 10-17-2022 End: 10-18-[address] WAQAS PIERCE Facility:[facility] Start: 10-13-2022 End: 10-13-2022 ambulatory Rachel Vela Other [employer] Other Start: 10-13-2022 Nutrition therapy Rachel Vela [facility] Start: 10-13-2022 Telephone encounter Rachel Vela [facility] Start: 10-13-2022 Registered [facility] Work Phone: Start: 10-10-2022 End: 10-11-[address] WAQAS PIERCE Facility:[facility] Start: 10-06-2022 End: 10-06-2022 ambulatory Waqas Pierce Other [employer] Other Start: 10-06-2022 Telephone encounter Waqas Pierce [facility] Start: 10-04-2022 (Procedure) Short Junior Mcgowan [facility] Start: 10-04-2022 End: 10-04-2022 ambulatory Junior Mcgowan Other [employer] Other Start: 10-03-2022 End: 10-04-[address] WAQAS PIERCE [employer] Other Start: 10-03-2022 Telephone encounter Junior Mcgowan [facility] [place] Start: 09-27-2022 End: 09-27-2022 ambulatory Junior Mcgowan Other [employer] Other Start: 09-27-2022 Telephone encounter Junior DARNELL [facility] Start: 09-19-2022 End: 09-20-[address] WAQAS PIERCE Facility:[facility] Start: 09-11-2022 End: 09-12-[address] WAQAS PIERCE Facility:[facility] Start: 09-06-2022 End: 09-06-2022 Patient encounter procedure [facility] Start: 09-06-2022 End: 09-06-2022 ambulatory NON STAFF [facility] Work Phone: Start: 09-06-2022 FQHC visit new patient David davalos AMAURI [facility] Start: 09-06-2022 End: 09-06-2022 ambulatory KIMBERLY AMADOR [facility] Start: 08-28-2022 End: 08-29-[address] WAQAS PIERCE Facility:[facility] Start: 08-18-2022 Adult health examination Grecia Fitt Other [employer] Other Start: 08-18-2022 Gynecological examination normal Grecia Fitt Other [employer] Other Start: 08-18-2022 End: 08-19-[address] [...] 04-25-2022 [facility] Start: 04-24-[address] WAQAS PIERCE Facil ity:[facility] Start: 04-22-2022 End: 04-25-2022 Evaluation and management of inpatient SHAIKH Carlos FRITZ Facility:[facility] Start: 04-21-2022 End: 04-22-[address] WAQAS PIERCE Facility:[facility] Start: 04-21-2022 End: 04-22-2022 Encounter for other preprocedural examination DR WAQAS PIERCE Facility:[facility] Start: 04-14-2022 End: 04-15-[address] WAQAS PIERCE Facility:[facility] Start: 03-31-2022 End: 04-01-[address] WAAQS PIERCE Facility:[facility] Start: 03-17-2022 End: 03-18-[address] WAQAS PIERCE Facility:[facility] Start: 03-11-2022 End: 03-12-[address] WAQAS PIERCE Facility:[facility] Start: 07-26-2021 Pre-procedure evalua tion nati Carrera Other [employer] Other Start: 07-25-2021 Office outpatient vi sit 15 minutes Mallory Yuen [facility] [place] Start: 06-23-2021 Office outpatient vi sit 25 minutes Junior Mcgowan [facility] [place] Start: 06-23-2021 Telephone encounter [facility] Start: 12-16-2020 End: 12-17-2020 ambulatory REFERRED SELF Facility:[facility] Procedures Date Procedure Procedure Detail Performing Clinician [...] Surgery: [id number] Result Comment: PERF ORMED BY: [facility] [address] [place] [address] PATHOLOGIST FISHING HAND SUAD ARREAGA M.D. Start: 08-28-2023 Urine culture MD Waqas Pierce Work Phone: Start: 08-15-2023 Plain X-ray of right hip MD Waqas Pierce Work Phone: Start: 10-23-2022 Urine culture Start: 09-06-2022 Plain X-ray of right hip Start: 04-24-2022 Excision of Left Tarsal, Open Approach DR WAQAS PIERCE Start: 04-24-2022 Insertion of Tissue Department Head into Left Foot Subcutaneous Tissue and Fascia, [...] Bilateral bone spur of calcaneum (disorder) Efrain NILL Decompression of median nerve Efrain RABAGOL Comment [...] Activity Detail Author Start: 09-03-2023 Hospital admission [facility] Start: 09-03-2023 End: 09-03-2023 [facility] Start: 09-03-2023 Physical therapy procedure [facility] Start: 08-28-2023 [facility] Start: 08-28-2023 Bacteria identified in Urine by Culture [facility] aPTT in Platelet poo r plasma by Coagulation assay [facility] Bacteria identified in Urine by Culture [facility] CT Chest WO and W contrast IV [facility] XR Chest 2 Views [facility] XR Chest 2 Views [facility] Immunizations Immunization Date Immunization Notes Care Provider Fa cility 09-28-2023 COVID-19 (PFIZER) 12Y and older MD Waqas Pierce Work Phone: [facility] 09-28-2023 influenza, injectabl e, quadrivalent, preservative free MD Waqas Pierce Work Phone: [facility] 08-31-2022 COVID-19 (Pfizer) Bivalent Booster, Age 12Y+ [facility] 08-31-2022 influenza virus vaccine, unspecified formulation Efrain CORTES [facility] 08-31-2022 influenza, injectabl e, quadrivalent, preservative free MD Waqas Pierce Work Phone: [facility] 08-31-2022 SARS-CoV-2 (COVID-19 ) [id number] Efrain CORTES [facility] 02-24-2022 COVID-19 (Pfizer); Translations: [COVID-19 (Pfizer)] MD Waqas Pierce Work Phone: [facility] 02-24-2022 COVID-19 Comirnaty (Pfizer) Tri-Sucrose 12+ MD Waqas Pierce Work Phone: [facility] 02-24-2022 SARS-CoV-2 mRNA (jxkstgqhiir-npso-urgpi se) vaccine Efrain CORTES [facility] 11-20-2021 influenza, injectabl e, quadrivalent, preservative free MD Waqas Pierce Work Phone: [facility] 08-19-2021 COVID-19 (Pfizer) [facility] 08-19-2021 SARS-CoV-2 (COVID-19 ) mRNA BNT-162b2 vax Efrain CORTES [facility] 01-19-2021 COVID-19 (Pfizer) [facility] 01-19-2021 SARS-CoV-2 (COVID-19 ) mRNA BNT-162b2 vax Efrain CORTES [facility] [place] 12-31-2020 COVID-19 (Pfizer) [facility] 12-31-2020 SARS-CoV-2 (COVID-19 ) mRNA BNT-162b2 stephie CORTES [facility] [place] 06-25-2020 influenza virus vaccine, split virus (incl. purified surface antigen) Grecia Carrera Other [employer] Other 06-25-2020 influenza virus vaccine, unspecified formulation [facility] 06-25-2020 influenza, injectabl e, quadrivalent, preservative free MD Waqas Pierce Work Phone: [facility] 06-25-2020 pneumococcal polysaccharide vaccine, 23 valent Grecia Carrera Other [facility] 07-30-2019 influenza, injectabl e, quadrivalent, contains preservative MD Waqas Pierce Work Phone: [facility] 07-12-2018 influenza, injectabl e, quadrivalent, preservative free MD Waqas Pierce Work Phone: [facility] 11-15-2016 influenza, injectabl e, quadrivalent, preservative free MD Waqas Pierce Work Phone: [facility] Payers Date Payer Category Payer Self-pay [id number] 1960 Unknown [id number] .840.1.653223.3.579.2.647 1960 Unknown [id number] .840.1.593181.3.579.2.727 1962 Unknown [id number] ..840.1.130271.3.579.2.727 1962 Unknown [id number] 2.16.840.1.778893.3.579.2.593 1962 Unknown [id number] 2.16.840.1.466036.3.579.2.593 1962 Unknown [id number] 2.16.840.1.648200.3.579.2.593 1962 Unknown [id number] 2.16.840.1.714147.3.579.2.593 1962 Unknown [id number] 2.16.840.1.863090.3.579.2.593 1962 Unknown [id number] 2.16.840.1.002188.3.579.2.593 1962 Unknown [id number] 2.16.840.1.828942.3.579.2.593 1962 Unknown [id number] 2.16.840.1.920049.3.579.2.593 1962 Unknown [id number] 2.16.840.1.428897.3.579.2.593 1962 Unknown [id number] 2.16.840.1.156866.3.579.2.593 1962 Unknown [id number] 2.16.840.1.977401.3.579.2.593 1962 Unknown [id number] 2.16.840.1.857014.3.579.2.593 1962 Unknown [id number] 2.16.840.1.779156.3.579.2.593 1962 Unknown [id number] 2.16.840.1.325822.3.579.2.593 1962 Unknown [id number] 2.16.840.1.672799.3.579.2.593 1962 Unknown [id number] 2.16.840.1.770654.3.579.2.593 1962 Unknown [id number] 2.16.840.1.588061.3.579.2.593 1962 Unknown [id number] 2.16.840.1.765457.3.579.2.593 1962 Unknown [id number] 2.16.840.1.072195.3.579.2.593 1962 Unknown [id number] 2.16.840.1.184958.3.579.2.593 1962 Unknown [id number] 2.16.840.1.370886.3.579.2.593 1962 Unknown [id number] 2.16.840.1.535338.3.579.2.593 1962 Unknown [id number] 2.16.840.1.003771.3.579.2.593 1962 Unknown [id number] 2.16.840.1.278622.3.579.2.593 1962 Unknown [id number] 2.16.840.1.307079.3.579.2.593 1962 Unknown [id number] 2.16.840.1.226384.3.579.2.593 1962 Unknown [id number] 2.16.840.1.127373.3.579.2.593 1962 Unknown [id number] 2.16.840.1.520404.3.579.2.593 1962 Unknown [id number] 2.16.840.1.125830.3.579.2.593 1962 Unknown [id number] 2.16.840.1.154344.3.579.2.593 1962 Unknown [id number] 2.16.840.1.712842.3.579.2.593 1962 Unknown [id number] 2.16.840.1.005067.3.579.2.593 1962 Unknown [id number] 2.16.840.1.086288.3.579.2.593 1962 Unknown [id number] 2.16.840.1.634625.3.579.2.593 1962 Unknown [id number] 2.16.840.1.328747.3.579.2.593 1962 Unknown [id number] 2.16.840.1.251694.3.579.2.593 1962 Unknown [id number] 2.16.840.1.496765.3.579.2.593 1962 Unknown [id number] 2.16840.1.200977.3.579.2.593 1962 Unknown [id number] 2.0.1.975536.3.579.2.593 1962 Unknown [id number] 2.16.840.1.125348.3.579.2.593 1962 Unknown [id number] 2.840.1.716656.3.579.2.593 1962 Unknown [id number] 2.840.1.437767.3.579.2.593 1962 Unknown [id number] 2.840.1.649441.3.579.2.593 1959 Unknown [id number] 2.16. 840.1.125630.19 1959 Unknown [id number] Medicare Medicare [id number] Private Health Insurance [employer] [facility] PFFS 1 [id number] Unknown [id number] 2.16840.1.714738.3.579.2.531 Unknown [id number] 2.16.840.1.588206.3.579.2.531 Unknown [id number] 2.16.840.1.321681.3.579.2.531 Unknown [id number] 2.16.840.1.971102.3.579.2.531 Worker's Compensation [id number] Worker's Compensation [employer] Ind [id number] Social History Date Type Detail Facility Unknown if ever smoked [employer] Other Sex Assigned At [facility] Start: 1960 Sex Assigned At Female F [facility] Start: 11-08-2022 End: 01-03-2024 Tobacco smoking status Ex-smoker (finding) [facility] [place] Comment on above: smoked one year, souleymane t 30 years ago Tobacco smoking status Never [facility] [place] Comment on above: smoked one year, souleymane t 30 years ago Medical Equipment Procedure Code Equipment Code Equipment Origin al Text Equipment Identifier Dates Arthroplasty, hip, total, anterior approach Acetabular shell [id number] FDA Start: 09-03-2023 Arthroplasty, hip, total, anterior approach Ceramic femoral head prosthesis ()[id number] FDA Start: 09-03-2023 Arthroplasty, hip, total, anterior approach Coated hip femur prosthesis, modular ()[id number] FDA Start: 09-03-2023 Arthroplasty, hip, total, anterior approach Non-constrained polyethylene acetabular liner ()[id number] FDA Start: 09-03-2023 Start: 02-13-2023 Goals Date [...] given. 1. Prediabetes most recent A1c of 5.7-ghuuj-qxcp treatment with long-term healthy lifestyle change, decreased [...] join the gym and start with a personalized living assistant. She should consider pool therapy/ water therapy. She needs to try to keep her trigger foods out of the house. She is to try to find healthier desserts and she tends to like to have 1 after each meal. Lately her cravings for sweets have been decreased. She continues to work with our grain ii farmworker. She understands the need for preplanning, following the plate method, having healthy foods around, keeping unhealthy foods out of her house and eating healthy Whole Foods. She does not like to cook or prep. She understands that shopping, chopping and preplanning so that she can eat healthy foods is essential to her recovery. She will continue to work with our grain ii farmworker. We could consider Wellbutrin in the future [...] her PCP. Author Estephania Mao [facility] Authored February 21, 2024 10:30 am Highest [...] given. 1. Prediabetes most recent A1c of 5.4-yihqs-qwlw treatment with long-term healthy lifestyle change, decreased [...] join the gym and start with a personalized living assistant. She should consider pool therapy/ water therapy. She needs to try to keep her trigger foods out of the house. She is to try to find healthier desserts and she tends to like to have 1 after each meal. Lately her cravings for sweets have been decreased. She continues to work with our grain ii farmworker. She understands the need for preplanning, following the plate method, having healthy foods around, keeping unhealthy foods out of her house and eating healthy Whole Foods. She does not like to cook or prep. She understands that shopping, chopping and preplanning so that she can eat healthy foods is essential to her recovery. She will continue to work with our grain ii farmworker. We could consider Wellbutrin in the future [...] lab work and TSH with her PCP. [facility] Work Phone: 1(818) 305-267104-04-2024 Evaluation note* Author Rolando Castellanos [facility] Authored January 03, 2024 11:3 9am Highest weight in program: 3 06.2. She is down 51.5 lbs. Start weight: 293.0 lbs. She is down 38.3lbs. today with a weight of 254.7 lbs she is down 7.9 lbs. since her last visit on 11/22/2023. Starting Date: 10/13/2022. Wegovy start date 01/17/2023. Christian start weight 306.2 pounds, she is down 51.5 lbs. Sample given. 1. Prediabetes most recent A1c of 5.1-otckc-zujp treatment with long-term healthy lifestyle change, decreased [...] join the gym and start with a personalized living assistant. She should consider pool therapy/ water therapy. She needs to try to keep her trigger foods out of the house. She is to try to find healthier desserts and she tends to like to have 1 after each meal. Lately her cravings for sweets have been decreased. She continues to work with our grain ii farmworker. She understands the need for preplanning, following the plate method, having healthy foods around, keeping unhealthy foods out of her house and eating healthy Whole Foods. She does not like to cook or prep. She understands that shopping, chopping and preplanning so that she can eat healthy foods is essential to her recovery. She will continue to work with our grain ii farmworker. We could consider Wellbutrin in the future [...] TSH with her PCP. Author Rolando Castellanos [facility] Authored February 21, 2024 10:49 am Highest [...] given. 1. Prediabetes most recent A1c of 5.8-hhohr-zmfj treatment with long-term healthy lifestyle change, decreased [...] join the gym and start with a personalized living assistant. She should consider pool therapy/ water therapy. [...] to continue to work closely with our customs compliance analyst. She understands the need for preplanning, following the plate method, having healthy foods around, keeping unhealthy foods out of her house and eating healthy Whole Foods. She does not like to cook or prep. She understands that shopping, chopping and preplanning so that she can eat healthy foods is essential to her recovery. She will continue to work with our grain ii farmworker. We could consider Wellbutrin in the future [...] lab work and TSH with her PCP. [facility] Work Phone: 1([phone]) 640-821602-22-2024 Evaluation note* Author Rolando Castellanos [facility] Authored November 22, 2023 12:47pm Highest weight [...] given. 1. Prediabetes most recent A1c of 5.5-wdlwk-wkfg treatment with long-term healthy lifestyle change, decreased [...] house. She continues to work with our grain ii farmworker. She understands the need for preplanning, following the plate method, having healthy foods around, keeping unhealthy foods out of her house and eating healthy Whole Foods. She does not like to cook or prep. She understands that shopping, chopping and preplanning so that she can eat healthy foods is essential to her recovery. She will continue to work with our grain ii farmworker. We could consider Wellbutrin in the future [...] lab work and TSH with her PCP. [facility] Work Phone: 1(232) 193-663202-22-2024 Evaluation note* Author Rolando Castellanos [facility] Authored November 22, 2023 12:47pm Highest weight [...] given. 1. Prediabetes most recent A1c of 5.0-yjigh-xnkr treatment with long-term healthy lifestyle change, decreased [...] house. She continues to work with our grain ii farmworker. She understands the need for preplanning, following the plate method, having healthy foods around, keeping unhealthy foods out of her house and eating healthy Whole Foods. She does not like to cook or prep. She understands that shopping, chopping and preplanning so that she can eat healthy foods is essential to her recovery. She will continue to work with our grain ii farmworker. We could consider Wellbutrin in the future [...] her PCP. Author Estephania Mao [facility] Authored January 03, 2024 11:1 8am Highest [...] given. 1. Prediabetes most recent A1c of 5.2-gtlfg-aqfm treatment with long-term healthy lifestyle change, decreased [...] house. She continues to work with our grain ii farmworker. She understands the need for preplanning, following the plate method, having healthy foods around, keeping unhealthy foods out of her house and eating healthy Whole Foods. She does not like to cook or prep. She understands that shopping, chopping and preplanning so that she can eat healthy foods is essential to her recovery. She will continue to work with our grain ii farmworker. We could consider Wellbutrin in the future [...] lab work and TSH with her PCP. [facility] Work Phone: 1(560) 979-662602-22-2024 Evaluation note* Author Rolando Castellanos [facility] Authored November 22, 2023 12:47pm Highest weight [...] given. 1. Prediabetes most recent A1c of 5.6-lqqju-ohap treatment with long-term healthy lifestyle change, decreased [...] house. She continues to work with our grain ii farmworker. She understands the need for preplanning, following the plate method, having healthy foods around, keeping unhealthy foods out of her house and eating healthy Whole Foods. She does not like to cook or prep. She understands that shopping, chopping and preplanning so that she can eat healthy foods is essential to her recovery. She will continue to work with our grain ii farmworker. We could consider Wellbutrin in the future [...] TSH with her PCP. Author Rolando Castellanos [facility] Authored January 03, 2024 11:3 9am Highest weight in program: 3 06.2. She is down 51.5 lbs. Start weight: 293.0 lbs. She is down 38.3lbs. today with a weight of 254.7 lbs she is down 7.9 lbs. since her last visit on 11/22/2023. Starting Date: 10/13/2022. Wegovy start date 01/17/2023. Rambogovy start weight 306.2 pounds, she is down 51.5 lbs. Sample given. 1. Prediabetes most recent A1c of 5.6-hjyrq-rnfh treatment with long-term healthy lifestyle change, decreased [...] join the gym and start with a personalized living assistant. She should consider pool therapy/ water therapy. She needs to try to keep her trigger foods out of the house. She is to try to find healthier desserts and she tends to like to have 1 after each meal. Lately her cravings for sweets have been decreased. She continues to work with our grain ii farmworker. She understands the need for preplanning, following the plate method, having healthy foods around, keeping unhealthy foods out of her house and eating healthy Whole Foods. She does not like to cook or prep. She understands that shopping, chopping and preplanning so that she can eat healthy foods is essential to her recovery. She will continue to work with our grain ii farmworker. We could consider Wellbutrin in the future [...] lab work and TSH with her PCP. [facility] Work Phone: 1([phone]) 331-568902-01-2024 Evaluation note* Encounter Date Diagnosis Assessment Notes Treatment Notes Treatment Clinical Notes Nov, Hypothyroidism (ICD-10 - E03.9) Pt due for labs - will recheck Nov, Elevated fasting glucose (ICD-10 - R73.01) Continue healthy diet and exercise as able. [employer] Other 01-17-2024 Evaluation note* Encounter Date Diagnosis Assessment Notes Treatment Notes Treatment Clinical Notes Oct, Aftercare following joint replacement surgery (ICD-10 - Z47.1) Oct, Presence of right artificial hip joint (ICD-10 - Z96.641) Oct, Other [facility] on 09/03/2023 Doing well Patient may continue increasing activities as tolerated. Continue taking qvbh-czv-nlcnmmc anti-inflammatorie s as needed for assistance with swelling and pain associated with the operative extremity. Follow-up in 6 weeks for repeat examination and repeat x-rays. [employer] Other 01-15-2024 Evaluation note* Encounter Date Diagnosis Assessment Notes Treatment Notes Treatment Clinical Notes Oct, Obesity (ICD-10 - E66.9) Oct, BMI 40.0-44.9, adult (ICD-10 - Z68.41) Oct, Other Summary of Visi t: (A) Discussed including more vegetables (B) Discussed plant proteins (C) Provided recipes [employer] Other 01-02-2024 Evaluation note* Encounter Date Diagnosis Assessment Notes Treatment Notes Treatment Clinical Notes Oct, Hypothyroidism (ICD-10 - E03.9) [employer] Other 12-20-2023 Evaluation note* Encounter Date Diagnosis [...] right artificial hip joint (ICD-10 - Z96.641) [employer] Other 12-19-2023 Evaluation note* Encounter Date Diagnosis [...] Aug, Metabolic syndrome X (ICD-10 - E88.81) [employer] [facility] Other 12-19-2023 Evaluation note* Author Rolando Castellanos [facility] Authored November 22, 2023 11:47am Highest weight [...] given. 1. Prediabetes most recent A1c of 5.6-cyjqi-uqet treatment with long-term healthy lifestyle change, decreased [...] house. She continues to work with our grain ii farmworker. She understands the need for preplanning, following the plate method, having healthy foods around, keeping unhealthy foods out of her house and eating healthy [employer]. She does not like to cook or prep. She understands that shopping, chopping and preplanning so that she can eat healthy foods is essential to her recovery. She will continue to work with our grain ii farmworker. We could consider Wellbutrin in the future [...] lab work and TSH with her PCP. [facility] Work Phone: [phone] 233-323512-18-2023 Evaluation note* Encounter Date Diagnosis Assessment Notes Treatment Notes Treatment Clinical Notes Aug, Obesity (ICD-10 - E66.9) Aug, BMI 40.0-44.9, adult (ICD-10 - Z68.41) Aug, Other Summary of Visi t: (A) Discussed including more vegetables (B) Answered general nutrition-related questions (C) DIscussed options for including more water [employer] [facility] Other 12-01-2023 Evaluation note* Encounter Date Diagnosis [...] patient could proceed with surgery safely. The remote encoding center manager was vital for surgery timing and [...] plans. Prolonged services time spent: 31 minutes [facility] Other 11-30-2023 Evaluation note* Encounter Date Diagnosis [...] therapy arrives. Joints Meeting Checklist - Pharmacy: [facility] to bed - Approach/Technique: anterior, Chelsea bed - Implants: Avenir Complete/G7; - Anesthesia: general vs spinal - Blocks: Fascia iliaca - Preop Antibiotics: Ancef and Vanco - TXA: yes-systemic - Positioning/OR Bed: supine on Chelsea bed - Intraop X-ray: yes - Alejandra: [...] above surgery. OARRS report generated and reviewed. [facility] Other 11-21-2023 Evaluation note* Encounter Date Diagnosis [...] symptoms. Any developing patterns. Stay well hydrated. [employer] Other 11-13-2023 Evaluation note* Encounter Date Diagnosis Assessment Notes Treatment Notes Treatment Clinical Notes Aug, Obesity (ICD-10 - E66.9) Aug, BMI 40.0-44.9, adult (ICD-10 - Z68.41) Aug, Other Summary of Visi t: (A) Continue current regimen (B) Much emotional support provided today (C) Encouraged continued follow up with counselor [employer] [facility] Other 10-31-2023 Evaluation note* Encounter Date Diagnosis Assessment Notes Treatment Notes Treatment Clinical Notes Jul, Acute laryngitis (ICD-10 - J04.0) Patient denies bacterial infection symptoms such as fever facial pressure or chills. Patient has not taken a COVID test. Discussed zlux-kgq-plsgvqb medications to use along with steroid pills that can improve her discomfort and laryngitis going forward. Advised that the steroids could elevate her blood sugar and to be mindful of that accordingly. [employer] [facility] Other 10-26-2023 Evaluation note* Encounter Date Diagnosis [...] Jul, Metabolic syndrome X (ICD-10 - E88.81) [employer] [facility] Other 10-26-2023 Evaluation note* Encounter Date Diagnosis Assessment Notes Treatment Notes Treatment Clinical Notes Jul, Other half-way (current) drug therapy (ICD-10 - Z79.899) Jul, Other osteoporosis without current pathological fracture (ICD-10 - M81.8) Jul, Osteoarthritis of right hip (ICD-10 - M16.11) [employer] [facility] Other 10-23-2023 Evaluation note* Encounter Date Diagnosis Assessment Notes Treatment Notes Treatment Clinical Notes Jul, Obesity (ICD-10 - E66.9) Jul, BMI 40.0-44.9, adult (ICD-10 - Z68.41) Jul, Other Summary of Visi t: (A) Continue current regimen (B) Discussed ways to include more water (C) Discussed ways to include more vegetables [employer] [facility] Other 10-16-2023 NoteShe admits intermittent orthostasis when she is bending over working in the yard and upon standing she gets lightheaded and dizzy. Denies syncope and admits that she is chronically dehydrated and does not drink enough. Therefore recommended at least 2 L of water per day, can intermittently have electrolyte replacement drinks like Gatorade or Powerade or Pedialyte she voiced understandingUnAdena [facility]ike [facility] Center10-16-2023 NoteShe is working on weight loss with her PCP and plywood layup line core feeder.[facility] 07-16-2023 NoteStable with metoprolol 25 mg dailyUnAdena Pike Medical Center10-16-2023 NoteContinue atorvastatin 20 mg Liver function normal, cholesterol and LDL levels well controlled in light she does not have CAD.[facility]10-16-2023 NoteUTP CARDIOLOGY PROGRESS NOTE HPI: Nicol [...] TABLET BY MOUTH TWICE DAILY NEEDED HYDROcodone-acetaminophen ([place]) 5-325 mg tablet hydrocodone 5 mg-acetaminophen 325 [...] on weight loss with her PCP and plywood layup line core feeder. Orthostasis She admits intermittent orthostasis when she is bending over working in the yard and upon standing she gets lightheaded an (more content not included)... [facility]10-16-2023 NotePatient here c/o dizziness only with [...] weakness. All other systems reviewed and are negative.[facility] 06-27-2023 Evaluation note* Encounter Date Diagnosis [...] the patient works on weight loss management. [employer] [facility] Other 09-18-2023 Evaluation note* Encounter Date Diagnosis [...] meals available that fit the plate method [employer] Other 09-14-2023 Evaluation note* Encounter Date Diagnosis [...] Jun, Metabolic syndrome X (ICD-10 - E88.81) [employer] [facility] Other 09-11-2023 Evaluation note* Encounter Date Diagnosis Assessment Notes Treatment Notes Treatment Clinical Notes 11 Sep, 2023 Well adult exam (ICD-10 - Z00.00) We [...] E55.9) discussed supplementation. will check D level. [employer] [facility] Other 08-28-2023 Evaluation note* Encounter Date Diagnosis Assessment Notes Treatment Notes Treatment Clinical Notes May, Hypothyroidism (ICD-10 - E03.9) [facility] Other 08-14-2023 Evaluation note* Encounter Date Diagnosis Assessment Notes Treatment Notes Treatment Clinical Notes May, Obesity (ICD-10 - E66.9) May, BMI 40.0-44.9, adult (ICD-10 - Z68.41) May, Other Summary of Visi t: (A) Discussed cooking various foods (B) Find control in indulgences (C) Reviewed the plate method [employer] [facility] Other 07-17-2023 Evaluation note* Encounter Date Diagnosis Assessment Notes Treatment Notes Treatment Clinical Notes Mar, Obesity (ICD-10 - E66.9) Mar, BMI 40.0-44.9, adult (ICD-10 - Z68.41) Mar, Other Summary of Visi t: (A) Discussed cooking various foods (B) Find control in indulgences (C) emphasize self-care [facility] Other 05-17-2023 NotePROCEDURE: XR FOOT LT MIN [...] Electronically authenticated by: ARIELA SCHWAB Date: 2023-02-14 06:48[facility]04-13-2023 Evaluation note* Encounter Date Diagnosis Assessment [...] 2. Increase veggies, follow the plate method [employer] [facility] Other 03-14-2023 Evaluation note* Encounter Date Diagnosis Assessment Notes Treatment Notes Treatment Clinical Notes Nov, Abnormal laboratory test result (ICD-10 - R89.9) [facility] Other 03-08-2023 NoteOPERATIVE NOTE OPERATION DATE: 12/06/2022 [...] in 10 years. CC: Waqas Pierce M.D.[facility] [id number] Evaluation note* Encounter Date Diagnosis Assessment Notes [...] - M16.10) Nov, Hypertension (ICD-10 - I10) [facility] Other 02-14-2023 Evaluation note* Encounter Date Diagnosis [...] patient set personal goal using given handout. [facility] Other 02-08-2023 NoteChief Complaint consultation for colonoscopy [...] Years., 11/08/2022 Family History (more content not included)...[facility] CenterComment on above:Result Comment: Electronically Signed By: SOPHIA PINEDA, Efrain Layne\Date and Time Signed: 11/08/22 15:29 [id number] Evaluation note* Encounter Date Diagnosis Assessment Notes [...] - G47.33) presently compliant with machine, etc [employer] [facility] Other 01-13-2023 Evaluation note* Encounter Date Diagnosis [...] Patient is interested in meeting with our enrollment services vice president, telephone encounter started to connect with her [...] the week. Encouraged to take advantage of enrollment services vice president available at [facility] that can help work around limitations. She is open to meeting with our enrollment services vice president for guidance on exercises she can complete with her severe limitations from her foot, hip and back. Telephone encounter started. Oct, Plantar fasciitis (ICD-10 - M72.2) Oct, Arthritis of hip (ICD-10 - M16.10) Oct, Impaired fasting glucose (ICD-10 - R73.01) [employer] [facility] Other 12-07-2022 Evaluation note* Encounter Date Diagnosis [...] while she works on her weight loss. [facility] Other 12-07-2022 NoteUTP CARDIOLOGY PROGRESS NOTE HPI: [...] 1 TABLET BY MOUTH TWICE DAILY HYDROcodone-acetaminophen ([place]) 5-325 mg tablet hydrocodone 5 mg-acetaminophen 325 [...] return to cardiology as needed. This is reasonable.[facility]12-07-2022 NoteContinue lipitor [facility]12-07-2022 NoteContinue toprolUnAdena Pike Medical Center12-07-2022 NoteConDay[facility]11-18-2022 NotePROCEDURE: XR HIP RT 2 3V [...] Electronically authenticated by: SHAWNEE KELLY Date: 2022-08-18 15:54[facility]11-18-2022 NotePROCEDURE: XR FOOT LT MIN 3 [...] Electronically authenticated by: SHAWNEE KELLY Date: 2022-08-18 15:42[facility]09-16-2022 NotePROCEDURE: XR FOOT LT MIN 3 [...] Electronically authenticated by: SHAWNEE KELLY Date: 2022-06-16 16:24[facility]09-16-2022 NotePROCEDURE: XR FOOT LT MIN 3 [...] Electronically authenticated by: SHAWNEE KELLY Date: 2022-06-16 16:24[facility]08-11-2022 NotePROCEDURE: XR FOOT LT MIN 3 VIEWS COMPARISON: 04/24/2022 HISTORY: Pain in left foot FINDINGS: BONES:Stable postsurgical changes with subtalar fusion, medial midfoot hindfoot fusion and spacer at the first tarsometatarsal joint. No mechanical failure. Severe degenerative changes. SOFT TISSUES:Extensive soft tissue swelling.Dorsal woundvac EFFUSION:None visible. OTHER: Negative. IMPRESSION: Stable degenerative and post surgical changes Electronically authenticated by: SHAWNEE KELLY Date: 2022-05-11 17:16[facility]07-25-2022 NotePROCEDURE: XR FOOT LT MIN 3 [...] Electronically authenticated by: ARIELA SCHWAB Date: 2022-04-24 14:11[facility]07-25-2022 NotePROCEDURE: XR FOOT LT 2V HISTORY: [...] authenticated by: ARIELA SCHWAB Date: 2022-04-24 11:54[facility] [id number] NotePROCEDURE: XR FOOT LT MIN 3 VIEWS [...] authenticated by: ARIELA SCHWAB Date: 2022-04-22 20:52[facility] [id number] NotePROCEDURE: XR FOOT LT MIN 3 VIEWS [...] Electronically authenticated by: SHAWNEE KELLY Date: 2022-04-14 17:03[facility]10-25-2021 Evaluation note* Encounter Date Diagnosis Assessment [...] care instructions given in writting by [facility] Care At Home document. [employer] [facility] Other 09-23-2021 Evaluation note* Encounter Date Diagnosis [...] note writ ten by Safia Calderon CMA, Short Filler Bunch Machine Operator. Edited and approved by Dr. Junior Mcgowan MD. [employer] Other Evaluation + Plan note No data available for this section General Surgery [place] Evaluation noteNo InformationNort [employer] Other Evaluation noteNo assessment information available [facility] Work Phone: Evaluation note* Diagnosis Onset Date Resolution Status Change in voice acute Essential (primary) hypertension acute Family history of von Willebrand disease acute Hyperlipidemia acute Hypothyroidism acute [facility] Work Phone: Evaluation note* Diagnosis Onset Date Resolution Status Change in voice acute Essential (primary) hypertension acute Family history of von Willebrand disease acute Hyperlipidemia acute Hypothyroidism acute Medicare annual wellness visit, subsequent acute [facility] Work Phone: History general Narrative - Reported* Type Description Date Medical History DDD (degenerative disc disease), lumbar Surgical History hip replacement Surgical History tonsillectomy Surgical History carpal tunnel release bilateral Hospitalization History see above [facility] Other [facility] general Narrative - Reported* Type Description Date Medical History DDD (degenerative disc disease), lumbar Medical History spinal stenosis Surgical History hip replacement Surgical History tonsillectomy Surgical History carpal tunnel release bilateral Surgical History vein ablasion Hospitalization History see above [facility] Other Hisud[facility] general Narrative - Reported* Type Description Date Medical History DDD (degenerative disc disease), lumbar Medical History spinal stenosis Surgical History hip replacement Surgical History tonsillectomy Surgical History carpal tunnel release bilateral Surgical History vein ablasion Surgical History skin graft left foot Hospitalization History see above [facility] Other Hisenqk general Narrative - Reported* Type Description Date [...] x3 202 2 Hospitalization History see above [facility] Other History general Narrative - Reported* Type [...] HIp replacement 09/03/23 Hospitalization History see above [facility] Other Hospital Discharge instructions No data available for this section General Surgery [facility] Discharge instructions Additional Instructions Joint Replacement Discharge Instructions Your safety during your recovery process is important to us. Please seek immediate emergency care if you have sudden chest pain or shortness of breath. Additionally, please call our office at [phone] should any of the following occur: wound [...] time or it could last forever. JANELL hosmyron (stockinette): Wear them for 4 weeks on [...] to walk without your walker and your home care nurse until the therapist checks you the following [...] and/or laxatives as directed. You may take wzfz-twa-yvtwsoo Benadryl if itching occurs without a rash or hives. Icing and elevation will help relieve pain as well, do not underestimate the power of ice and elevation. We do recommend that you stop taking narcotic pain medications by 4-6 weeks after surgery and if necessary, continue to use anti-inflammatory medications such as Mobic (meloxicam), Celebrex (celecoxib), or an bfzx-rfs-ilikhot medication (Aleve, Motrin, Ibuprofen, etc). Driving an [...] feel free to call our office at [phone]. You are a priority of ours and we will not be upset with you if you call. We would much rather you call to confirm aspects of your recovery process as opposed to possibly hindering your recovery with inappropriate care. We are committed to providing you with the best care possible. David Mcfarland II, MD Updated 12/15/2022[facility] Work Phone: Progress note No data available for this section General Surgery [place] Reason for referral (narrative)* Reason Appt: Diagnosis 1 Depression (F32.9) Referral Organization [facility] Referring Provider First Name Rolando Referring Provider Last Name Jasmin Referring Provider Specialty Internal Me dicine Referred Organization [facility] [place] Referred Address [address] [place],[address] Referred Provider Specialty Miscellaneou s Referral Priority Routine General Notes Anna Jose 2022 01:07:39 PM >Please contact patient to schedule. [employer] Other Summary Purpose Family History Relationship Condition [...] RD WM f/u Sick-Did not test for [id number] Reason for Visit Sinusitis, acute max illary BMI 40.0-44.9, adult Fatty liver Hyperlipidemia Hypertension Pre-diabetes Aftercare following joint replacement Chest congestion Cough Chief Complaint Rd Wm F/U Obesity z47.[address] WM f/u Sinus infection WMN F/UP Z47.1 - Aftercare following joint replacement surg [address] WM f/u Sick-Did not test for [id number] Reason for Visit Sinusitis, acute max illary BMI 40.0-44.9, adult Fatty liver Hyperlipidemia Hypertension Pre-diabetes Aftercare following joint replacement Bronchitis Chest congestion Cough Chief Complaint Rd Wm F/U Obesity z47.[address] WM f/u BH Sinus infection WMN F/UP Z47.1 - Aftercare following joint replacement surg [address] WM f/u Sick-Did not test for [id number] RD WM f/u Reason for Visit Sinusitis, [...] RD WM f/u Sick-Did not test for [id number] RD WM f/u Habit forming Reason for Visit Sinusitis, acute max illary BMI 40.0-44.9, adult Fatty liver Hyperlipidemia Hypertension Pre-diabetes Aftercare following joint replacement Bronchitis Chest congestion Cough BMI 40.0-44.9, adult Fatty liver Hyperlipidemia Pre-diabetes Chief Complaint Z47.1 - Aftercare fo [facility] joint replacement surg [address] WM f/u Sick-Did not test for [id number] RD WM f/u Habit forming Reason for Visit Aftercare following joint replacement Bronchitis Chest congestion Cough BMI 40.0-44.9, adult Fatty liver Hyperlipidemia Pre-diabetes Chief Complaint BH RD WM f/u Sick-Did not test for [id number] RD WM f/u Habit forming Reason for Visit Bronchitis Chest congestion Cough BMI 40.0-44.9, adult Fatty liver Hyperlipidemia Pre-diabetes BMI 40.0-44.9, adult Fatty liver Hyperlipidemia Hypertension Pre-diabetes Chief Complaint RD WM f/u Chief Complaint RD WM f/u WELLNESS Reason for Visit Change in voice Essential (primary) hypertension Family history of von Willebrand disease Hyperlipidemia Hypothyroidism Chief Complaint RD WM f/u WELLNESS RD WM f/u Reason for Visit Change in voice Essential (primary) hypertension Family history of von Willebrand disease Hyperlipidemia Hypothyroidism Medicare annual wellness visit, subsequent Additional Source Comments INFORMATION SOURCE (unrecogn ized section and content) DATE CREATED AUTHOR 04/29/2021 [facility] DATE CREATED AUTHOR AUTHOR'S ORGANIZ ATION 12/20/2022 [facility] DATE CREATED AUTHOR AUTHOR'S ORGANIZ ATION 03/09/2023 [facility] DATE CREATED AUTHOR AUTHOR'S ORGANIZ ATION 07/16/2023 [facility] DATE CREATED AUTHOR AUTHOR'S ORGANIZ ATION 03/03/2024 [facility] REASON FOR VISIT (unrecogniz ed [...] End: December 26, 2023 Carrie Bhakta APRN CHIEF ORDER DISPATCHER-C Attending Provider Act pradeep Start: December 26, [...] Inactive Member Role Status Dates Grecia Pham [facility] Attending Provider Active Start: October [...] Inactive Member Role Status Dates Grecia Pham [facility] Attending Provider Active Start: September [...] June 16, 2024 End: June 16, 2024 Team Status: Active Member Role Status Dates Waqas Pierce MD Primary Care Provide r, Attending Provider Active Start: June 17, 2024 Team Status: Inactive Member Role Status Dates Waqas Pierce MD Primary Care Provider Active Start: June 19, 2024 End: June 19, 2024 KOBY Roberson Attending Provider Active S tart: June 19, 2024 End: June 19, 2024 Goals (unrecognized section and content) Goals [...] BE BASED ON THE PRIMARY CLINICAL RECORDS. [employer] provides no warranty or guarantee of the accuracy or completeness of information in this document.
== END 2024-07-15 19:49 | disposition home or self-care (01) ==
LOC: SLEEP 19:48
PROVIDERS: PCP Family Medicine; Visit Provider Family Medicine
DX: G47.33 Obstructive sleep apnea (adult) (pediatric) (principal)
CPT/HCPCS: 95811

== ENCOUNTER 2024-07-22 08:42 | Outpatient (OUT) | payer MEDICARE, SELFPAY | END 2024-07-22 08:43 | disposition home or self-care (01) | LOC: RAD 08:42 | PROVIDERS: PCP Family Medicine; Visit Provider Podiatrist Foot & Ankle Surgery | DX: M25.572 Pain in left ankle and joints of left foot (principal) | CPT/HCPCS: 73630 ==

== ENCOUNTER 2024-08-01 07:46 | Outpatient (RCR) | payer MEDICARE, SELFPAY ==
--- OUTSIDE RECORDS SUMMARY | 2024-08-01 07:51 | XMS_ITS | CCD ---
Author Organization [facility] Care Team Providers Care Billing Typist Name Role Phone SELF, REFERRED Referring Unavailable DAVID LR Admitting Unavailable DAVID LR Attending Unavailable WAQAS PIERCE Primary Care Unavailable DAVID LR Surgeon Unavailable [place] Procedure Practitioner Unavailab JUDSON Martinez Surgeon Unavailable [place] Procedure Practitioner Unavailab Junior Peterson Unavailable Mallory Yuen Unavailable NON STAFF Primary Care Provider UnavailMD David Merritt II Attending Provider David Mcfarland II Unavailable MD Waqas Pierce Primary Care Provider [phone] MD Waqas Pierce Attending Provider [phone] WAQAS PIERCE Primary Care Physician Waqas Pierce Unavailable Rachel Vela Unavailable Rolando Castellanos Unavailable Grecia Carrera Unavailable Efrain CORTES Attending Unavailable Efrain CORTES Attending Unavailable KARI, DR WAQAS Mendez Primary Care Unavailable AMY KASPER Attending Unavailable AMY KASPER Admitting Unavailable KARI, DR WAQAS Mendez Primary Care Unavailable SOPHIA Rivera, DR SHARMA Attending Unavailable SOPHIA Rivera, DR SHARMA Admitting Unavailable NILSharan Rivera, DR SHRAMA Consulting Unavailable DIEGO WHITLEY Consulting Unavailable MARIA EUGENIA HUTTON Consulting Unavailable KARI, DR WAQAS Mendez Primary Care Unavailable JASMIN, DR MARSHALL Attending Unavailable JASMIN, DR MARSHALL Admitting Unavailable JASMIN, DR MARSHALL Consulting Unavailable KARI, DR WAQAS Mendez Primary Care Unavailable AMY KASPER Attending Unavailable MOUNT CARMEL, DR SHAWNEE James Consulting Unavailable HIGHLANDER, AMY D Admitting Unavailable HIGHLANDER, AMY Iverosn Consulting Unavailable PIERCE, DR WAQAS Mendez Primary [...] Primary Care Unavailable YO, LEA Attending Unavailable LEA RAM Admitting Unavailable HIGHLANDER, AMY Iverson Attending Unavailable PIERCE, DR WAQAS Mendez Primary Care Unavailable ZIEBER, DR ARIELA Vaz Consulting Unavailable HIGHLANDER, AMY Iverson Admitting Unavailable HIGHLANDER, AMY Iverson Consulting Unavailable PIERCE, DR WAAQS Mendez Primary Care Unavailable HIGHLANDER, AMY Iverson [...] HIGHLANDER, AMY Iverson Attending Unavailable HIGHLANDER, MAY Iverson Admitting Unavailable HIGHLANDER, AMY Iverson Admitting [...] Consulting Unavailable CATRINA, H Attending Unavailable CATRINA, H Admitting Unavailable PIERCE, DR WAQAS Mendez Primary Care Unavailable [facility], DR ARIELA Vaz Consulting Unavailable LAMIN MOHAN Consulting Unavailable HIGHLANDER, AMY Iverson Consulting Unavailable AGHAMMADOSIM MELINDA Consulting Unavailable HIGHLANDER, AMY Iverson Procedure Practitioner Unava ilenid Rivera, ELICEO Consulting Unavailable CATRINA, SHAIKH Carlos Consulting Unavailable ESTER, TUNDE Consulting Unavailable DEVIN, AMAR Consulting Unavailable AA, AA Consulting Unavailable PIERCE, [...] HIGHLANDER, AMY Iverson Attending Unavailable HIGHLANDER, MAY Iverson Admitting Unavailable PIERCE, DR WAQAS Mendez Primary Care Unavailable MISC, DR PEÑA Consulting Unavailable MISC, DR PEÑA Admitting Unavailable MISC, DR PEÑA Attending Unavailable HIGHLANDER, AMY Iverson Attending Unavailable PIERCE, DR WAQAS Mendez Primary Care Unavailable HIGHLANDER, AMY Iverson Admitting Unavailable MD David Mcfarland II Attending Provider [phone] MD Waqas Pierce Primary Care Provider NON [...] Provider MD Waqas Pierce Primary Care Provider [phone] MD David Mcfarland II Attending Provider NON STAFF Primary Care Provider UnavailMD Marcin Chambers Attending Provider [phone] NON STAFF Primary Care Unavailable Marcin Grace Attending Unavailab Marcin Ramos Admitting Unavailab le Bartolo II, David Gordillo Admitting Unavailabl e Clune II, David Gordillo Attending Unavailabl e Waqas Pierce Primary Care Unavailable NON STAFF Primary Care Unavailable Clune II, David Gordillo Admitting Unavailabl e Clune II, David Gordillo Attending Unavailabl e NON STAFF Primary Care Unavailable Bartolo BAUGH, David Gordillo Attending Unavailabl e Bartolo II, David Gordillo Admitting Unavailabl e Clune AMAURI, David Gordillo Admitting Unavailabl e Bartolo II, David Gordillo Attending Unavailabl Waqas Dayl Primary Care Unavailable NON STAFF Primary Care Unavailable Bartolo BAUGH, David Gordillo Admitting Unavailabl e Clune II, David Gordillo Attending Unavailabl e NON STAFF Primary Care Unavailable Bartolo BAUGH, David Gordillo Attending Unavailabl e Clune II, David Gordillo Admitting Unavailabl e NON STAFF Primary Care Unavailable Bartolo II, David Gordillo Attending Unavailabl e Bartolo II, David Gordillo Admitting Unavailabl e ANITA TAFOYA Attending Unavailable Allergies Allergy Classification Reported Allergen(s) Allergy Type Date of Onset Reaction(s) Facility metFORMIN (1 source) metFORMIN; Translations: [METFORMIN] Drug Allergy 12-17-19 [facility] Repository Penicillins (antibiotic) (1 source) Penicillin Drug Allergy 03-11-20 18 [facility] Repository Serotonin (1 source) Serotonin; Translations: [SEROTONIN] Drug Allergy 12-17-19 21 [facility] Repository (20 sources) Penicillin G Drug Allergy 11-01-19 24 [facility] (20 sources) CYMBOLTA Propensity to adverse reactions temporary blindness and couldnt feel herself breathing [facility] Other (20 sources) DULoxetine; Translations: [duloxetine] Drug Allergy 09-05-20 22 Impairment level of vision (disorder) [facility] [place] (20 sources) metFORMIN; Translations: [metformin] Drug Allergy 09-05-20 22 Abdominal mass (finding) [facility] [place] (20 sources) Penicillin; Translations: [penicillin] Drug Allergy 08-08-20 13 Eruption of skin (disorder) [facility] [place] (1 source) DULoxetine Drug Allergy [facility] Repository (1 source) metFORMIN Drug Allergy [facility] Repository (17 sources) Penicillins; Translations: [PENICILLINS] Drug allergy (disorder) 10-01-19 00 Rash [facility] Repository (20 sources) Rx Essentials Antidepressant *HEMATOPOIETIC AGENTS Propensity to adverse reactions Comment:[facility] Other (3 sources) Allergies Reconciled Propensity to adverse reactions 08-17-20 21 Unknown [facility] Other (20 sources) Substance with penicillin structure and antibacterial mechanism of action (substance) Drug allergy Unknown [facility] Other (20 sources) Substance with serotonin re-uptake inhibitor mechanism of action (substance) Drug allergy 09-04-20 12 SEROTONIN HCL [facility] [employer] Other (3 sources) patient allergy list reviewed by nurse or physicia Propensity to adverse reactions 12-09-19 14 Comment:Done [facility] Other (15 sources) Serotonin Drug Allergy 08-28-20 23 temporary blindness, couldn't feel self breath [facility] (12 sources) Rx Essentials Antidepressant * Allergy to substance 11-01-19 24 Comment:[facility] (1 source) DULoxetine Drug Allergy 08-28-20 23 [facility] Repository (1 source) metFORMIN Drug Allergy 08-28-20 23 [facility] Repository (1 source) Penicillins Drug allergy (disorder) 08-28-20 23 [facility] Repository Medications Current Medications Medication Drug Class(es) Dates Sig (Normalized) Sig (Original) 0.5 ML semaglutide 0.5 MG/ML Auto-Injector [Deannavy] (1 source) Start: 01-17-2023 inject 0.5 mL [...] DISCHARGE DOS: 09/03/23 Aug, Active Tylenol Active [id number] 200 actuat albuterol 0.09 mg/actuat metered dose [...] Ordered docusate sodium 50 mg / sennosides, jail 8.6 mg oral tablet (12 sources) Start: [...] Start: 12-15-2022 take 1 tablet by krysten once daily in the morning Levothyroxine Sodium 25 MCG 1 tablet in the morning on an empty stomach Orally Once a day for 30 days Nov, Active take 1 tablet by [facility] once daily in the morning Levothyroxine Sodium [...] Once a day Active polyethylene glycol 3350 19433 mg powder for oral solution (12 sources) [...] (1999) (3 sources) take 1 capsule by [facility] once daily Vitamin D 50 MCG (1999) [...] 10:19am Start: 10-19-2019 take 1 capsule by [facility] every twelve hours Doxycycline Monohydrate 100 MG [...] arrhythmia, unspecified] Onset: 3 Chronic Cardiac dysrhythmias (8 sources) Palpitations; Translations: [Tachycardia, unspecified] Onset: 3 Episodic Chronic obstructive pulmonary disease and bronchiectasis [...] (1 source) Regurgitation of food 08-18-2020 Episodic Nonspecific chest pain (2 sources) Other chest pain; Translations: [Other chest pain] Onset: 4 Episodic Nutritional deficiencies (20 sources) Vitamin D [...] replacement] Chronic Other aftercare (2 sources) Other skilled nursing (current) drug therapy; Translations: [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] Onset: 3 Episodic Other [...] Translations: [Solitary pulmonary nodule] 12-27-2023 Episodic Other lower respiratory disease (2 sources) Shortness of breath; Translations: [Shortness of breath] Onset: 4 Episodic Other nervous system disorders (20 sources) [...] nutritional; endocrine; and metabolic disorders (5 sources) Body mass index (BMI) 45.0-49.9, adult; [...] obesity due to excess calories] Chronic Other screening for suspected conditions (not [...] Onset: 8 11-28-2023 Chronic Residual codes; unclassified (7 sources) Obstructive sleep apnea (adult) (pediatric); Translations: [OBSTRUCTIVE SLEEP APNEA] Onset: 3 Chronic Residual codes; unclassified (1 source) Presence [...] and structure, left ankle and foot; Translations: [[facility] D/O BONE DEN STRUCT LT ANK FOOT] [...] aPTT Coag (PPP) [Time] 26.5 s 22.3-36.2 [facility] Basophils Auto (Bld) [#/Vol] on 06-17-2024 Basophils (Bld) [#/Vol] 0.1 10 3/uL 0.0-0.1 [facility] Basophils/100 WBC Auto (Bld) on 06-17-2024 Basophils/100 WBC (Bld) 1.4 % 0.2-2.0 [facility] Cholesterol in LDL Calc [Mas s/Vol]on 06-17-2024 Cholesterol in LDL [Mass/Vol] 72.0 mg/dL [facility] Comment on above: <100 mg/dl [id number] 0-129 mg/dl NEAR OR ABOVE [id number] mg/dl BORDERLINE [id number] mg/dl HIGH>190 mg/dl VERY HIGH Cholesterol in VLDL Calc [Ma ss/Vol]on 06-17-2024 Cholesterol in VLDL [Mass/Vol] 33.4 mg/dL [facility] Eosinophils/100 WBC Auto (Bl d)on 06-17-2024 Eosinophils/100 WBC (Bld) 1.8 % 0.9-7.0 [facility] Erythrocyte distribution wid th Auto (RBC) [Ratio]on 06-17-2024 Erythrocyte distribution width (RBC) [Ratio] 17.7 % High 11.0-15.0 [facility] Hematocrit Auto (Bld) [Volum e fraction]on 06-17-2024 Hematocrit (Bld) [Volume fraction] 33.7 % Low 36.0-48.0 [facility] Hemoglobin [Mass/volume] in Bloodon 06-17-2024 Hemoglobin (Bld) [Mass/Vol] 9.8 g/dL Low 12.0-16.0 [facility] INR in Platelet poor plasma by Coagulation assayon 06-17-2024 INR Coag (PPP) [Relative time] 0.95 {INR} [facility] Comment on above: DESIRED INR:2.0-3.0 CONDITIONS NOT LISTED BELOW2.5-3.5 FOR PROSTHETIC HEART VALVE REPLACEMENT2.5-3.5 RECURRENT THROMBOSIS Laboratory - Chemistry and C hemistry - challengeon 06-17-2024 Cholesterol [Mass/Vol] 171 mg/dL <=200 [facility] Cholesterol in HDL [Mass/Vol] 66 mg/dL High 40-60 [facility] Comment on above: > or =60 mg/dl - LOW CARDIOVASCULAR RISK<40 mg/dl - HIGH CARDIOVASCULAR RISK Free T4 [Mass/Vol] 0.78 ng/dL 0.76-1.46 [facility] Triglyceride [Mass/Vol] 167 mg/dL High <=150 [facility] TSH Qn 6.061 m[IU]/L High 0.358-3.74 0 [facility] Laboratory - Hematology and Cell countson 06-17-2024 Immature granulocytes/100 WBC (Bld) 0.0 % 0.0-0.5 [facility] Leukocytes [#/volume] correc janell for nucleated erythrocytes in Blood by Automated counon 06-17-2024 WBC corrected for nucl RBC Auto (Bld) [#/Vol] 5.0 10 3/uL 4.0-11.0 [facility] Lymphocytes Auto (Bld) [#/Vo l]on 06-17-2024 Lymphocytes (Bld) [#/Vol] 1.9 10 3/uL 1.2-3.8 [facility] Lymphocytes/100 WBC Auto (Bl d)on 06-17-2024 Lymphocytes/100 WBC (Bld) 37.1 % 20.5-60.0 [facility] MCH Auto (RBC) [Entitic mass ]on 06-17-2024 MCH (RBC) [Entitic mass] 21.5 pg Low 26.7-34.0 [facility] MCHC Auto (RBC) [Mass/Vol]on 06-17-2024 MCHC (RBC) [Mass/Vol] 29.1 g/dL Low 29.9-35.2 [facility] MCV Auto (RBC) [Entitic vol] on 06-17-2024 MCV (RBC) [Entitic vol] 74.1 fL Low 81.0-99.0 [facility] Monocytes Auto (Bld) [#/Vol] on 06-17-2024 Monocytes (Bld) [#/Vol] 0.4 10 3/uL 0.3-0.8 [facility] Monocytes/100 WBC Auto (Bld) on 06-17-2024 Monocytes/100 WBC (Bld) 8.0 % 1.7-12.0 [facility] Neutrophils Auto (Bld) [#/Vo l]on 06-17-2024 Neutrophils (Bld) [#/Vol] 2.6 10 3/uL 1.4-6.5 [facility] Neutrophils/100 WBC Auto (Bl d)on 06-17-2024 Neutrophils/100 WBC (Bld) 51.7 % 43.0-75.0 [facility] No Panel Informationon 06-17 Eosinophils # (Auto) 0.1 10 3/uL 0.0-0.7 [facility] Immature Granulocyte # (Auto) 0.00 10 3/uL 0.00-0.03 [facility] Platelet mean volume Auto (B ld) [Entitic vol]on 06-17-2024 Platelet mean volume (Bld) [Entitic vol] 9.2 fL Low 9.5-13.5 [facility] Platelets Auto (Bld) [#/Vol] on 06-17-2024 Platelets (Bld) [#/Vol] 400 10 3/uL 150-450 [facility] Prothrombin time (PT)on 06-01 PT Coag (PPP) [Time] 10.1 s 9.0-11.6 [facility] RBC Auto (Bld) [#/Vol]on RBC (Bld) [#/Vol] 4.55 10 6/uL 4.20-5.40 [facility] Serum or plasma total choles terol/high density lipoprotein (HDL) cholesterol mass bridget 06-17-2024 Cholesterol.total/Cho lesterol in HDL [Mass ratio] 2.6 {ratio} [facility] Comment on above: 3.3 - 4.4 LOW RISK4. 4 - 7.1 AVERAGE RISK7.1 - 11.0 MODERATE RISK>11.0 HIGH RISK Estimated glomerular filtrat ion rate (GFR) non- Americanon 01-11-2024 GFR/1.73 sq M.predicted among non-blacks MDRD (S/P/Bld) [Vol rate/Area] mL/min/{1.73_m2} >=60 [facility] Laboratory - Chemistry and C hemistry - challengeon 01-11-2024 Creatinine [Mass/Vol] 0.85 mg/dL 0.55-1.02 [facility] GFR/1.73 sq M.predicted MDRD (S/P/Bld) [Vol rate/Area] mL/min/{1.73_m2} >=60 [facility] XR hip RT min 2V(w/wo pelvis )*on 11-28-2023 XR hip RT min 2V(w/wo pelvis)* [facility] [place] [address] XRay Report Signed Patient: Nicol Smith MR#: [id number] 9 : 1960 Acct:[id number] Age/Sex: 63 / F ADM Date: 11/28/23 Loc: [facility] Room: Type: [facility] Attending Dr: David Mcfarland II, MD Copies [...] COMPLICATION.. Impression dictated by: Stalin Matamoros Jr., DFabian11/28/2023 1:06 PM Dictation Location: RADIO-PC-12 Transcribed By: SILVIA 11/28/23 1306 Dictated By: Stalin Matamoros Jr, DO 11/28/23 1305 Signed By: 11/28/23 1306 Normal [facility] XR hip RT min 2V(w/wo pelvis )*on 10-17-2023 XR hip RT min 2V(w/wo pelvis)* [facility] Main [place] [address] [place] [address] XRay Report Signed Patient: Nicol Smith MR#: [id number] 9 : 1960 Acct:[id number] Age/Sex: 63 / F ADM Date: 10/17/23 Loc: [facility] Room: Type: [facility] Attending Dr: David Mcfarland II, MD Copies [...] Dictation Location: [facility]-12 Transcribed By: SILVIA 10/17/23 153 Dictated By: Kane Katz DO 10/17/23 153 Signed By: 10/17/23 153 Normal [facility] XR hip RT min 2V(w/wo pelvis)* [facility] [employer] Other XR hip RT min 2V(w/wo pelvis)* [facility] Main [place] [employer] Other XR hip RT min 2V(w/wo pelvis)* [address] [facility] [employer] Other XR hip RT min 2V(w/wo pelvis)* DARSHAN [place] [address] [facility] Other XR hip RT min 2V(w/wo pelvis)* XRay Report [facility] Other XR hip RT min 2V(w/wo pelvis)* Signed [facility] Other XR hip RT min 2V(w/wo pelvis)* Patient: Nicol Smith MR#: [id number] [employer] Other XR hip RT min 2V(w/wo pelvis)* 9 [facility] Other XR hip RT min 2V(w/wo pelvis)* : 1960 Acct:[id number] [facility] Other XR hip RT min 2V(w/wo pelvis)* Age/Sex: 63 / F ADM Date: 10/17/23 [facility] Other XR hip RT min 2V(w/wo pelvis)* Loc: [facility] Room: Type: [facility] [employer] Other XR hip RT min 2V(w/wo pelvis)* Attending Dr: David Mcfarland II, MD [employer] Other XR hip RT min 2V(w/wo pelvis)* Copies to: David Mcfarland MD [employer] Other XR hip RT min 2V(w/wo pelvis)* Ordering Provider: David Mcfarland MD [employer] Other XR hip RT min 2V(w/wo pelvis)* Date of Service: 10/17/23 [employer] Other XR hip RT min 2V(w/wo pelvis)* XR/XR hip RT min 2V(w/wo pelvis)*: Aftercare following joint replacement [employer] Other XR hip RT min 2V(w/wo pelvis)* surgery;Presence of ri TIDAL PETROLEUM Other XR hip RT min 2V(w/wo pelvis)* 2 views right hip with single view pelvis plain film [employer] Other XR hip RT min 2V(w/wo pelvis)* COMPARISON: 09/03/2023 [employer] Other XR hip RT min 2V(w/wo pelvis)* HISTORY: Status post right total hip arthroplasty [facility] Other XR hip RT min 2V(w/wo pelvis)* ACUTE FINDINGS: None [facility] Other XR hip RT min 2V(w/wo pelvis)* DEGENERATIVE CHANGE: Unremarkable [facility] Other XR hip RT min 2V(w/wo pelvis)* SOFT TISSUE FINDINGS: Unremarkable [facility] Other XR hip RT min 2V(w/wo pelvis)* JOINT EFFUSION: None [facility] Other XR hip RT min 2V(w/wo pelvis)* POSTOP CHANGES: Stable bilateral hip arthroplasties. [facility] Other XR hip RT min 2V(w/wo pelvis)* BONY MINERALIZATION: Adequate [facility] Other XR hip RT min 2V(w/wo pelvis)* XR/XR hip RT min 2V(w/wo pelvis)* [facility] Other XR hip RT min 2V(w/wo pelvis)* IMPRESSION: Stable right hip arthroplasty. [facility] Other XR hip RT min 2V(w/wo pelvis)* Impression dictated by: Kane Katz M.D.10/17/2023 3:39 PM [facility] Other XR hip RT min 2V(w/wo pelvis)* Dictation Location: [facility]12 [employer] Other XR hip RT min 2V(w/wo pelvis)* Transcribed By: SILVIA 10/17/23 3347 [employer] Other XR hip RT min 2V(w/wo pelvis)* Dictated By: Kane Katz DO 10/17/23 1533 [employer] Other XR hip RT min 2V(w/wo pelvis)* Signed By: [employer] Other XR hip RT min 2V(w/wo pelvis)* 10/17/23 7987 [employer] Other ABO/Rh Retypeon 09-03-2023 ABO/RH Recheck Result Positive Normal [facility] Comment on above: Result Comment: PERF ORMED BY: [facility] [address] [place] [address] PATHOLOGIST INSURANCE SPECIALIST SUAD Killian 09-03-2023 L ------ Specimen: [id number] Received: 09/03/23 Status: GRACIELA Chavez Num: [id number] Spec Type: Surgical Subm Dr: David Mcfarland MD Tissues: A Femoral Head - Other than Fracture (RT HIP) Procedures: HE/2, Gross/Micro L3, Decalcification Age/ Patient Sex Location Account Attending Physician Nicol Smith 63/F ID [id number] David Mcfarland MD SPEC NUM: [id number] RECD: 09/03/23 STATUS: GRACIELA CHAVEZ NUM: [id number] SABRINA: 09/03/[address] [facility] [address]: David Mcfarland MD ENTERED: 09/03/23 BOBBY GUAN: BEATRICE TYPE: Surgical DEPT: S ORDERED: HE/2, [...] with eburnation identified. The cut surface is yellow-ksier, trabecular, hyperemic. Thinning of the articular cartilage is identified with some cortical cystic changes. A gross photo is taken. Gross examination only. CPT Codes 33625 Specimen: [id number] Received: 09/03/23 Status: GRACIELA Chavez Num: [id number] Spec Type: Surgical Subm Dr: David Mcfarland MD Tissues: A Femoral Head - Other than Fracture (RT HIP) Procedures: HE/2, Gross/Micro L3, Decalcification Patient: Nicol Smith [id number] (Continued) Specimen: [id number] Received: 09/03/23 (Continued) Signed (signature on file) Dez Núñez MD 09/07/23 1345 Specimen: [id number] Received: 09/03/23 Status: GRACIELA Chavez Num: [id number] Spec Type: Surgical Subm Dr: David Mcfarland MD Tissues: A Femoral Head - Other than Fracture (RT HIP) Procedures: HE/2, Gross/Micro L3, Decalcification Patient: Nicol Smith [id number] (Continued) Specimen: [id number] Received: 09/03/23 (Continued) Maikol Photo Specimen: [id number] Received: 09/03/23 Status: GRACIELA Chavez Num: [id number] Spec Type: Surgical Subm Dr: David Mcfarland MD Tissues: A Femoral Head - Other than Fracture (RT HIP) Procedures: HE/2, Gross/Micro L3, Decalcification Patient: Nicol Smith [id number] (Continued) Signed (signature on file) Dez Núñez MD 09/07/23 1345 Normal [facility] XR low pelvis w/RT x-table h ipon 09-03-2023 XR low pelvis w/[place] [address] XRay Report Signed Patient: Nicol Smith MR#: [id number] 9 : 1960 Acct:[id number] Age/Sex: 63 / F ADM Date: 09/03/23 Loc: ID Room: Type: [facility] Attending Dr: David Mcfarland II, MD Copies to: David Mcfarland MD Ordering Provider: David Mcfarland MD Date of Service: 09/03/23 XR/XR low pelvis w/RT x-table hip: Total Hip, due in PACU ([id number]) XR/XR hip RT 1V: ANTERIOR HIP IN [...] Anna Hull M.D.09/03/2023 11:53 AM Dictation Location: [place] [address] Transcribed By: SILVIA 09/03/23 1153 Dictated By: Anna Hull MD 09/03/23 1150 Signed By: 09/03/23 1153 Normal [facility] Automated basophil %Ordered By: David Mcfarland on 08-28-2023 Basophils/100 WBC (Bld) 1.1 % Normal . [facility] Comment on above: Performed By: #### C HOPE BMP #### [facility] [address] [place] [address] [place] #### FRUC #### [facility] , Automated basophil countOrde red By: David Mcfarland on 08-28-2023 Basophils (Bld) [#/Vol] 0.1 10*3/uL Normal 0.0-0.2 [facility] Comment on above: Result Comment: PERF ORMED BY: [place] [address] PATHOLOGIST INSURANCE SPECIALIST SUDA ARREAGA M.D. Performed By: #### C BC BMP #### [facility] [address] [place] [address] [place] #### FRUC #### [facility] , Automated blood monocyte cou ntOrdered By: David Mcfarland on 08-28-2023 Monocytes (Bld) [#/Vol] 0.5 10*3/uL Normal 0.0-0.8 [facility] Comment on above: Performed By: #### C BC, BMP #### [facility] [address] [place] [address] [place] #### FRUC #### [facility] , Automated eosinophil %Ordere d By: David Mcfarland on 08-28-2023 Eosinophils/100 WBC (Bld) 1.0 % Normal . [facility] Comment on above: Performed By: #### C BC, BMP #### [place] [address] [place] #### FRUC #### [facility] , Automated eosinophil countOr dered By: David Mcfarland on 08-28-2023 Eosinophils (Bld) [#/Vol] 0.1 10*3/uL Normal 0.0-0.45 [facility] Comment on above: Performed By: #### C BC, BMP #### [facility] [address] [place] [address] [place] #### FRUC #### [facility] , Automated erythrocytes count in urine sediment (number/area)Ordered By: David Mcfarland on 08-28-2023 RBC Auto (Urine sed) [#/Area] 1-2 [HPF] 0-4 [facility] Automated leukocytes count i n urine sediment (number/area)Ordered By: David Mcfarland on 08-28-2023 WBC Auto (Urine sed) [#/Area] 10-19 [HPF] 0-4 [facility] Automated monocyte %Ordered By: David Mcfarland on 08-28-2023 Monocytes/100 WBC (Bld) 7.6 % Normal . [facility] Comment on above: Performed By: #### C BC, BMP #### [facility] [address] [place] [address] [place] #### FRUC #### [facility] , Automated neutrophil %Ordere d By: David Mcfarland on 08-28-2023 Neutrophils/100 WBC (Bld) 65.0 % Normal . [facility] Comment on above: Performed By: #### C BC, BMP #### [place] [address] [place] #### FRUC #### [facility] , Automated urine color determ inationOrdered By: David Mcfarland on 08-28-2023 Color (U) Yellow Normal Yellow [facility] Comment on above: Order Comment: Name Collection Type:: Clean-Voided Midstream Performed By: #### A DDONUAPLUS, CUU #### [address] Basic Metabolic Panelon 08-02 GFR/1.73 sq M.predicted MDRD (S/P/Bld) [Vol rate/Area] mL/min/{1.73_m2} Normal [facility] Comment on above: Performed By: #### C BC, BMP #### [address] #### FRUC #### [facility] , Bilirubin Test strip Ql (U)O rdered By: David Mcfarland on 08-28-2023 Bilirubin Ql (U) Negative Negative [facility] Calcium [Mass/volume] in Ser um or PlasmaOrdered By: David Mcfarland on 08-28-2023 Calcium [Mass/Vol] 9.7 mg/dL Normal 8.6-10.3 [facility] Comment on above: Result Comment: PERF ORMED BY: [place] [address] PATHOLOGIST INSURANCE SPECIALIST SUAD ARREAGA M.D. Performed By: #### C BC, BMP #### [address] #### FRUC #### [facility] , Carbon dioxide, total [Moles /volume] in Serum or PlasmaOrdered By: David Mcfarland on 08-28-2023 CO2 [Moles/Vol] 26.1 mmol/L Normal 21.0-31.0 [facility] Comment on above: Performed By: #### C BC, BMP #### [place] [address] [place] #### FRUC #### [facility] , Chloride [Moles/volume] in S adela or PlasmaOrdered By: David Mcfarland on 08-28-2023 Chloride [Moles/Vol] 107 mmol/L Normal 98-107 [facility] Comment on above: Performed By: #### C BC, BMP #### [place] [address] [place] #### FRUC #### [facility] , Complete Blood Count Auto Di ffon 08-28-2023 Mean Corpuscular HGB Conc 32.1 g/dL Normal 32.0-35.0 [facility] Comment on above: Performed By: #### C BC, BMP #### [facility] [address] [place] [address] [place] #### FRUC #### [facility] , NRBC% 0.1 /100{WBC} Normal 0-0.5 [facility] Comment on above: Performed By: #### C BC, BMP #### [facility] [address] [place] [address] [place] #### FRUC #### [facility] , Creatinine [Mass/volume] in Serum or PlasmaOrdered By: David Mcfarland on 08-28-2023 Creatinine [Mass/Vol] 0.96 mg/dL Normal 0.60-1.20 [facility] Comment on above: Performed By: #### C BC, BMP #### [facility] [address] [place] [address] [place] #### FRUC #### [facility] , Dipstick and Microscopicon 1 10-28-2022 Appearance (U) Clear Normal Clear [facility] Comment on above: Order Comment: Name Collection Type:: Clean-Voided Midstream Performed By: #### A DDONUAPLUS, CUU #### [address] Bacteria,Urine None Seen Normal None Seen [facility] Comment on above: Order Comment: Name Collection Type:: Clean-Voided Midstream Performed By: #### A DDONUAPLUS, CUU #### [address] Bilirubin,Urine Negative Normal Negative [facility] Comment on above: Order Comment: Name Collection Type:: Clean-Voided Midstream Performed By: #### A DDONUAPLUS, CUU #### [address] Glucose Ql (U) Normal Normal Normal [facility] Comment on above: Order Comment: Name Collection Type:: Clean-Voided Midstream Performed By: #### A DDONUAPLUS, CUU #### [address] Hyaline Casts,Urine 0-8 Normal 0-8 [facility] Comment on above: Order Comment: Name Collection Type:: Clean-Voided Midstream Result Comment: PERF ORMED BY: [place] [address] PATHOLOGIST INSURANCE SPECIALIST SUAD ARREAGA M.D. Performed By: #### A DDONUAPLUS, CUU #### [address] Ketones Ql (U) Negative Normal Negative [facility] Comment on above: Order Comment: Name Collection Type:: Clean-Voided Midstream Performed By: #### A DDONUAPLUS, CUU #### [address] Leukocyte esterase Test strip Ql (U) 3+ High Negative [facility] Comment on above: Order Comment: Name Collection Type:: Clean-Voided Midstream Performed By: #### A DDONUAPLUS, CUU #### [place] [address] [place] Nitrite,Urine Negative Normal Negative [facility] Comment on above: Order Comment: Name Collection Type:: Clean-Voided Midstream Performed By: #### A DDONUAPLUS, CUU #### [place] [address] [place] Occult Blood,Urine Negative Normal Negative [facility] Comment on above: Order Comment: Name Collection Type:: Clean-Voided Midstream Result Comment: PERF ORMED BY: [place] [address] PATHOLOGIST INSURANCE SPECIALIST SUAD ARREAGA M.D. Performed By: #### A DDONUAPLUS, CUU #### [place] [address] [place] Protein,Urine Negative Normal Negative [facility] Comment on above: Order Comment: Name Collection Type:: Clean-Voided Midstream Performed By: #### A DDONUAPLUS, CUU #### [place] [address] [place] RBC,Urine 1-2 Normal 0-4 [facility] Comment on above: Order Comment: Name Collection Type:: Clean-Voided Midstream Performed By: #### A DDONUAPLUS, CUU #### [place] [address] [place] Specificy Morton,Urine 1.020 Normal 1.001-1.03 0 [facility] Comment on above: Order Comment: Name Collection Type:: Clean-Voided Midstream Performed By: #### A DDONUAPLUS, CUU #### [place] [address] [place] Squamous Epithelial Cell,Urine 3-4 High 0-2 [facility] Comment on above: Order Comment: Name Collection Type:: Clean-Voided Midstream Performed By: #### A DDONUAPLUS, CUU #### [place] [address] [place] Urobilinogen,Urine Normal Normal Normal [facility] Comment on above: Order Comment: Name Collection Type:: Clean-Voided Midstream Performed By: #### A DDONUAPLUS, CUU #### [address] WBC,Urine 10-19 High 0-4 [facility] Comment on above: Order Comment: Name Collection Type:: Clean-Voided Midstream Performed By: #### A DDONUAPLUS, CUU #### [facility] [address] [place] [address] ECG 12 lead ECGon 08-28-2023 ECG 12 lead ECG [facility] [place] [address] [place] [address] Electrocardiograph Report Signed Patient: Niclo Smith MR#: [id number] 9 : 1960 Acct:[id number] Age/Sex: 63 / F ADM Date: 08/28/23 Loc: Room: Type: [facility] Attending Dr: David Mcfarland II, MD Ordering [...] previous ECGs available Confirmed by NAHID PINEDA FACKAMARI ([id number]) on 08/28/2023 10:26:43 PM Referred By: BARTOLO Electronically Signed By:KAMARI MANN MD FAC Transcribed By: MUS Signed By Jonathan Mann MD 08/28/232225 Normal [facility] Erythrocyte distribution wid th [Ratio] by Automated countOrdered By: David Mcfarland on 08-28-2023 Erythrocyte distribution width (RBC) [Ratio] 17.5 % High 11.9-15.3 [facility] Comment on above: Performed By: #### C BC, BMP #### [place] [address] [place] #### FRUC #### [facility] , Erythrocytes [#/volume] in B lood by Automated countOrdered By: David Mcfarland on 08-28-2023 RBC (Bld) [#/Vol] 4.74 10*6/uL Normal 3.60-5.00 [facility] Comment on above: Performed By: #### C BC, BMP #### [facility] [address] [place] [address] [place] #### FRUC #### [facility] , Fructosamineon 08-28-2023 Fructosamine 205 umol/L Normal 0-285 [facility] Comment on above: Result Comment: Publ ished reference interval for apparently healthy subjects between age 20 and 60 is 205 - 285 umol/L and in a poorly controlled diabetic population is 228 - 563 umol/L with a mean of 396 umol/L. Performed at: [facility] [address] [id number] Councilperson: Luis Mukherjee PhD, Phone: [phone] PERFORMED BY: [place] [address] PATHOLOGIST INSURANCE SPECIALIST SUAD ARREAGA M.D. Performed By: #### C HOPE, BMP #### [place] [address] [place] #### FRUC #### [facility] , Fructosamine [Moles/volume] in Serum or PlasmaOrdered By: David Mcfarland on 08-28-2023 Fructosamine [Moles/Vol] 205 umol/L 0-285 [facility] Comment on above: Published reference interval for apparently healthysubjects between age 20 and 60 is 205 - 285 umol/L and in apoorly controlled diabetic population is 228 - 563 umol/Lwith a mean of 396 umol/L.Performed at: [facility] [address] [place], [place] [id number] Director: Luis Mukherjee PhD, Phone: [phone] Glucose [Mass/volume] in Ser um or PlasmaOrdered By: David Mcfarland on 08-28-2023 Glucose [Mass/Vol] 98 mg/dL Normal 70-100 [facility] Comment on above: ADA recommended refe rence rangeRandom Glucose Reference Range is dependent on time and content of last meal. Glucose of more than 200 mg/dL in a nonstressed, ambulatory subject supports the diagnosis of Diabetes Mellitus. Result Comment: [place] om Glucose Reference Range is dependent on time and content of last meal. Glucose of more than 200 mg/dL in a nonstressed, ambulatory subject supports the diagnosis of Diabetes Mellitus. ADA recommended reference range Performed By: #### C BC, BMP #### [address] #### FRUC #### [facility] , Hematocrit [Volume Fraction] of Blood by Automated countOrdered By: David Mcfarland on 08-28-2023 Hematocrit (Bld) [Volume fraction] 36.9 % Normal 34.0-46.4 [facility] Comment on above: Performed By: #### C BC, BMP #### [facility] [address] [place] [address] [place] #### FRUC #### [facility] , Hemoglobin [Mass/volume] in BloodOrdered By: David Mcfarland on 08-28-2023 Hemoglobin (Bld) [Mass/Vol] 11.9 g/dL Normal 11.8-15.4 [facility] Comment on above: Performed By: #### C BC, BMP #### [facility] [address] [place] [address] [place] #### FRUC #### [facility] , Ketones Auto test strip (U) [Mass/Vol]Ordered By: David Mcfarland on 08-28-2023 Ketones (U) [Mass/Vol] Negative Negative [facility] Laboratory - UrinalysisOrder ed By: David Mcfarland on 08-28-2023 Hyaline casts LM Ql (Urine sed) 0-8 [LPF] 0-8 [facility] Leukocytes [#/volume] correc janell for nucleated erythrocytes in Blood by Automated counOrdered By: David Mcfarland on 08-28-2023 WBC corrected for nucl RBC Auto (Bld) [#/Vol] 6.4 10*3/uL 3.8-11.6 [facility] Leukocytes [#/volume] in Blo od by Automated countOrdered By: David Mcfarland on 08-28-2023 WBC (Bld) [#/Vol] 6.4 10*3/uL Normal 3.8-11.6 [facility] Comment on above: Performed By: #### C BC, BMP #### [facility] [address] [place] [address] [place] #### FRUC #### [facility] , Lymphocytes [#/volume] in Bl ood by Automated countOrdered By: David Mcfarland on 08-28-2023 Lymphocytes (Bld) [#/Vol] 1.6 10*3/uL Normal 1.00-4.8 [facility] Comment on above: Performed By: #### C BC, BMP #### [place] [address] [place] #### FRUC #### [facility] , Lymphocytes/100 leukocytes i n Blood by Automated countOrdered By: David Mcfarland on 08-28-2023 Lymphocytes/100 WBC (Bld) 25.3 % Normal . [facility] Comment on above: Performed By: #### C BC, BMP #### [facility] [address] [place] [address] [place] #### FRUC #### [facility] , MCH [Entitic mass] by Automa janell countOrdered By: David Mcfarland on 08-28-2023 MCH (RBC) [Entitic mass] 25.0 pg Normal 24.7-34.3 [facility] Comment on above: Performed By: #### C BC, BMP #### [facility] [address] [place] [address] [place] #### FRUC #### [facility] , MCHC Auto (RBC) [Mass/Vol]Or dered By: David Mcfarland on 08-28-2023 MCHC (RBC) [Mass/Vol] 32.1 g/dL 32.0-35.0 [facility] MCV [Entitic volume] by Auto mated countOrdered By: David Mcfarland on 08-28-2023 MCV (RBC) [Entitic vol] 78.0 fL Low 80-100 [facility] Comment on above: Performed By: #### C BC, BMP #### [facility] [address] [place] [address] [place] #### FRUC #### [facility] , Neutrophils [#/volume] in Bl ood by Automated countOrdered By: David Mcfarland on 08-28-2023 Neutrophils (Bld) [#/Vol] 4.2 10*3/uL Normal 1.8-7.7 [facility] Comment on above: Performed By: #### C BC, BMP #### [facility] [address] [place] [address] [place] #### FRUC #### [facility] , Nitrite Test strip Ql (U)Ord ered By: David Mcfarland on 08-28-2023 Nitrite Ql (U) Negative Negative [facility] No Panel InformationOrdered By: David Mcfarland on 08-28-2023 Estimated GFR (CKD-EPI) > 60.0 mL/Min [facility] Creatinine Clearance (Chem N/A [facility] Nucleated erythrocytes [Pres ence] in Blood by Automated countOrdered By: David Mcfarland on 08-28-2023 Nucleated RBC Auto Ql (Bld) 0.1 /100{WBC} 0-0.5 [facility] PST Type and Screenon 2022 ABO and Rh group Nom (Bld) Blood group B Rh(D) positive Normal [facility] Comment on above: Order Comment: Date of Surgery: [id number] Platelet mean volume [Entiti c volume] in Blood by Automated countOrdered By: David Mcfarland on 08-28-2023 Platelet mean volume (Bld) [Entitic vol] 8.0 fL Normal 6.3-10.7 [facility] Comment on above: Performed By: #### C BC, BMP #### [facility] [address] [place] [address] [place] #### FRUC #### [facility] , Platelets [#/volume] in Bloo d by Automated countOrdered By: David Mcfarland on 08-28-2023 Platelets (Bld) [#/Vol] 387 10*3/uL Normal 150-450 [facility] Comment on above: Performed By: #### C BC, BMP #### [place] [address] [place] #### FRUC #### [facility] , Potassium [Moles/volume] in Serum or PlasmaOrdered By: David Mcfarland on 08-28-2023 Potassium [Moles/Vol] 4.2 mmol/L Normal 3.5-5.1 [facility] Comment on above: Performed By: #### C BC, BMP #### [place] [address] [place] #### FRUC #### [facility] , Protein Auto test strip (U) [Mass/Vol]Ordered By: David Mcfarland on 08-28-2023 Protein (U) [Mass/Vol] Negative Negative [facility] Serum or plasma anion gap de terminationOrdered By: David Mcfarland on 08-28-2023 Anion gap [Moles/Vol] 11.1 mmol/L Normal 6.0-15.0 [facility] Comment on above: Performed By: #### C BC, BMP #### [place] [address] [place] #### FRUC #### [facility] , Sodium [Moles/volume] in Ser um or PlasmaOrdered By: David Mcfarland on 08-28-2023 Sodium [Moles/Vol] 140 mmol/L Normal 136-145 [facility] Comment on above: Performed By: #### C BC, BMP #### [facility] [address] [place] [address] [place] #### FRUC #### [facility] , Specific gravity Auto test s trip (U) [Rel density]Ordered By: David Mcfarland on 08-28-2023 Specific gravity (U) [Rel density] 1.020 1.001-1.03 0 [facility] Squamous epithelial cells de tection in urine sediment by light microscopyOrdered By: David Mcfarland on 08-28-2023 Epithelial cells.squamous LM Ql (Urine sed) 3-4 [HPF] 0-2 [facility] Urea nitrogen [Mass/volume] in Serum or PlasmaOrdered By: David Mcfarland on 08-28-2023 Urea nitrogen [Mass/Vol] 17 mg/dL Normal 7-25 [facility] Comment on above: Performed By: #### C BC, BMP #### [facility] [address] [place] [address] [place] #### FRUC #### [facility] , Urine Cultureon 08-28-2023 Bacteria identified Cx Nom (U) 50,000 colonies/ml mixed bacterial skin contaminants 2 Days PERFORMED BY: [place] [address] PATHOLOGIST INSURANCE SPECIALIST SUAD ARREAGA M.D. Normal [facility] Comment on above: Performed By: #### A DDONUAPLUS, CUU ####[facility] [address] [place] [address] Urine bacteria detection by automated methodOrdered By: David Mcfarland on 08-28-2023 Bacteria Auto Ql (U) None seen None Seen [facility] Urine clarity by refractomet ry automatedOrdered By: David Mcfarland on 08-28-2023 Clarity Refractometry automated (U) Clear Clear [facility] Urine culture routineOrdered By: David Mcfarland on 08-28-2023 Bacteria identified Cx Nom (U) 2 Days [facility] Urine glucose measurement by automated test strip (mass/volume)Ordered By: David Mcfarland on 08-28-2023 Glucose Auto test strip (U) [Mass/Vol] Normal mg/dL Normal [facility] Urine hemoglobin detection b y automated test stripOrdered By: David Mcfarland on 08-28-2023 Hemoglobin Auto test strip Ql (U) Negative Negative [facility] Urine leukocyte esterase det ection by automated test stripOrdered By: David Mcfarland on 08-28-2023 Leukocyte esterase Auto test strip Ql (U) 3+ Negative [facility] Urine pH measurement by auto mated test stripOrdered By: David Mcfarland on 08-28-2023 pH (U) 5.5 [pH] Normal 5.0-9.0 [facility] Comment on above: Order Comment: Name Collection Type:: Clean-Voided Midstream Performed By: #### A DDONMARLEY CUU #### [address] Urobilinogen Auto test strip (U) [Mass/Vol]Ordered By: David Mcfarland on 08-28-2023 Urobilinogen (U) [Mass/Vol] Normal mg/dL Normal [facility] XR hip RT min 2V(w/wo pelvis )*on 08-15-2023 XR hip RT min 2V(w/wo pelvis)* [facility] [place] [address] XRay Report Signed Patient: Nicol Smith MR#: [id number] 9 : 1960 Acct:[id number] Age/Sex: 63 / F ADM Date: 08/15/23 Loc: [facility] [place] [place] Room: Type: [facility] Attending Dr: David Mcfarladn II, MD Copies to: David Mcfarland MD [...] PROCESS.. Impression dictated by: Stalin Matamoros Jr., Jose08/15/2023 4:18 PM Dictation Location: [place] [address] Transcribed By: [facility] 08/15/23 161 Dictated By: Stalin Matamoros Jr, DO 08/15/231616 Signed By: 08/15/23 161 Normal [facility] TSHon 01-19-2023 TSH 5.502 uIU/mL Critically high 0.358-3.74 0 [facility] Comment on above: Performed By: #### T SH ####[facility] [address] [address]DrMiguel Cao GTT 2 HRon 12-12-2022 Glucose [Mass/Vol] 117 mg/dL Critically high 74-106 T [facility] Comment on above: Performed By: #### G TT2 ####[facility] [address] [address]Dr. Darrick Cao Glucose [Mass/Vol] 227 mg/dL Normal [facility] Comment on above: Performed By: #### G TT2 ####[facility] [address] [id number]. Darrick Cao Glucose [Mass/Vol] 121 mg/dL Normal [facility] Comment on above: Performed By: #### G TT2 ####[facility] [address] [id number]. Darrick Cao TSHon 12-12-2022 TSH 6.852 uIU/mL Critically high 0.358-3.74 0 [facility] Comment on above: Performed By: #### P OCGLUC #### [facility] Laboratory [address] [address] [address] Darrick Cao Outside Colonoscopyon 2022 Outside Colonoscopy [id number]#1.00CD:127 [facility] Reminderson 12-07-2022 Reminders - From: Yu Waters LPN To: [facility] - Clinical; Sent: 12/07/2022 08:47:38 EST Show up: 11/08/2032 07:00:00 EST Subject: colonoscopy recall Due Date/Time: 12/06/2032 07:00:00 EST Reminder/Recall Patient is due for screening colonoscopy 12/06/2032. Normal [facility] Consent for Procedure/Surger yon 11-09-2022 Consent for Procedure/Surgery [id number]#1.00CD:127 [facility] Consent for Procedure/Surgery [id number]#1.00CD:127 [facility] Facesheeton 11-09-2022 Facesheet [id number]#1.00CD:127 [facility] Ambulatory Visit Summaryon 0 11-08-2022 Ambulatory Visit Summary NICOL SMITH :1960 Visit Date:11/08/2022 Ambulatory Visit Instructions Your Diagnosis Screening for malignant neoplasm of colon BMI 45.0-49.9, adult Your Care Team Attending Physician - SOPHIA PINEDA, Efrain Vaz Primary Care Physician - WAQAS PIERCE MD This Is Your Medications List Contact prescribing [...] Screening for malignant neoplasm of colon Normal [facility] MG MAMM SCREEN 3D BONNIE CADon 11-03-2022 MG MAMM SCREEN 3D BONNIE CAD Patient: NICOL SMITH Exam Date: 11/03/2022 : 1960 Gender:F Ordering : DR FRIEDA LOCKE . Admission #: [id number] Family : Order #: [id number] CLICK HERE TO VIEW EXAM RADIOLOGY REPORT [...] uterine cancer at age 52. LOCATION: [facility] BREAST COMPOSITION: Scattered areas fibroglandular density. FINDINGS: [...] Kelly MD on 11/03/2022 at 11:04 Normal [facility] XR DEXA BONE DENSITYon 11-03 XR DEXA [...] by: ARIELA SCHWAB Date: 2022-11-03 11:11 Normal [facility] Comprehensive Metabolic Pane yuli 10-30-2022 Urea nitrogen [Mass/Vol] 20 mg/dL [facility] Other Comprehensive Metabolic Panel [facility] Other Comprehensive Metabolic Panel >60 [facility] Other Comprehensive Metabolic Panel 4.2 [facility] Other Albumin [Mass/Vol] 3.7 g/dL Normal 3.4-5.0 [facility] Other Comment on above: Performed By: #### T SH, CMP, LIPID ####[facility] [address] [id number]. Darrick Cao Albumin/Globulin [Mass ratio] 0.9 {ratio} Normal [facility] Other Comment on above: Performed By: #### T SH, CMP, LIPID ####[facility] [address] [id number]. Darrick Cao ALP [Catalytic activity/Vol] 112 U/L Normal 46-116 [facility] Other Comment on above: Performed By: #### T SH, CMP, LIPID ####[facility] [address] [place], [place] [address]Dr. Darrick Cao ALT [Catalytic activity/Vol] 34 U/L Normal 14-59 [facility] Other Comment on above: Performed By: #### T SH, CMP, LIPID ####[facility] [address] [address]Dr. Darrick Cao AST [Catalytic activity/Vol] 17 U/L Normal 15-37 [facility] Other Comment on above: Performed By: #### T SH, CMP, LIPID ####[facility] [address] [id number]. Darrick Cao Bilirubin [Mass/Vol] 0.4 mg/dL Normal 0.2-1.0 [facility] Other Comment on above: Performed By: #### T SH, CMP, LIPID ####[facility] [address] [id number]. Darrick Cao Calcium [Mass/Vol] 9.2 mg/dL Normal 8.5-10.1 [facility] Other Comment on above: Performed By: #### T SH, CMP, LIPID ####[facility] [address] [place], [place] [address]Dr. Darrick Cao Chloride [Moles/Vol] 105 mmol/L Normal 98-107 [facility] Other Comment on above: Performed By: #### T SH, CMP, LIPID ####[facility] [address] [address]Dr. Darrick Cao CO2 [Moles/Vol] 27.0 mmol/L Normal 21.0-32.0 [facility] Other Comment on above: Performed By: #### T SH, CMP, LIPID ####[facility] [address] [place], [place] [address]Dr. Darrick Cao Creatinine [Mass/Vol] 0.86 mg/dL Normal 0.55-1.02 [facility] Other Comment on above: Performed By: #### T SH, CMP, LIPID ####[facility] [address] [place], [place] [address]Dr. Darrick Cao Glucose [Mass/Vol] 114 mg/dL Critically high 74-106 [facility] Other Comment on above: Performed By: #### T SH, CMP, LIPID ####[facility] [address] [place], [place] [address]Dr. Darrick Cao Potassium [Moles/Vol] 3.9 mmol/L Normal 3.5-5.1 [facility] Other Comment on above: Performed By: #### T SH, CMP, LIPID ####[facility] [address] [place], [place] [address]Dr. Darrick Cao Protein [Mass/Vol] 7.9 g/dL Normal 6.4-8.2 [facility] Other Comment on above: Performed By: #### T SH, CMP, LIPID ####[facility] [address] [place], [place] [address]Dr. Darrick Cao Sodium [Moles/Vol] 143 mmol/L Normal 136-145 [facility] Other Comment on above: Performed By: #### T SH, CMP, LIPID ####[facility] [address] [id number]. Darrick Cao FREE T4on 10-30-2022 Free T4 [Mass/Vol] 0.77 ng/dL Normal 0.76-1.46 [facility] Comment on above: Performed By: #### F T4 ####[facility] [address] [id number]. Darrick Cao LIPID PROFILEon 10-30-2022 CHOL-HDL RATIO NORM SEE BELOW Normal [facility] [facility] Comment on above: Result Comment: 3.3 - 4.4 LOW RISK 4.4 - 7.1 AVERAGE RISK 7.1 - 11.0 MODERATE RISK >11.0 HIGH RISK Performed By: #### T SH, CMP, LIPID ####[facility] [address] [place] [address]Dr. Darrick Cao Cholesterol in LDL [Mass/Vol] 84.6 mg/dL Normal [facility] Comment on above: Performed By: #### T SH, CMP, LIPID ####[facility] [address] [place] [id number]. Adryyakov Cao HDL NORMAL > or = 60 mg/dl - LO W CARDIOVASCULAR RISK <40 mg/dl - HIGH CARDIOVASCULAR RISK Normal [facility] Comment on above: Performed By: #### T SH, CMP, LIPID ####[facility] [address] [place] [phone]. Darrick Cao LDL CALC NORMAL SEE BELOW Normal [facility] Comment on above: Result Comment: <100 mg/dl OPTIMAL 100 - 129 mg/dl NEAR OR ABOVE OPTIMAL 130 - 159 mg/dl BORDERLINE HIGH 160 - 189 mg/dl HIGH >190 mg/dl VERY HIGH Performed By: #### T SH, CMP, LIPID ####[facility] [address] [place] [phone]. Darrick Cao Triglyceride [Mass/Vol] 222 mg/dL Critically high <=150 [facility] Comment on above: Performed By: #### T SH, CMP, LIPID ####[facility] [address] [place] [phone]. Darrick Cao VLDL CALC 44.4 mg/dL Normal [facility] Comment on above: Performed By: #### T SH, CMP, LIPID ####[facility] [address] [place], [place] [address]Bl. Darrick Cao Lipid Panelon 10-30-2022 Cholesterol in LDL Elph Qn 84.6 [facility] [employer] Other Lipid Panel 222 [employer] Other Lipid Panel 44.4 [employer] Other Cholesterol [Mass/Vol] 185 mg/dL Normal <=200 [employer] Other Comment on above: Performed By: #### T SH, CMP, LIPID ####[facility] [address]ks[address]aw[address] [place] [phone]. Darrick Cao Cholesterol in HDL [Mass/Vol] 56 mg/dL Normal 40-60 [employer] Other Comment on above: Performed By: #### T SH, CMP, LIPID ####[facility] Ssw[address]yc[address] [place] [phone]. Darrick Cao Cholesterol.total/Cho lesterol in HDL [Mass ratio] 3.3 {ratio} Normal [facility] [employer] Other Comment on above: Performed By: #### T SH, CMP, LIPID ####[facility] [address]fr[address] [place] [phone]. Darrick Cao PROF 14(COMP METB)on 023 Anion gap [Moles/Vol] 14.9 mmol/L Normal [facility] Comment on above: Performed By: #### T SH, CMP, LIPID ####[facility] [address] [place], [place] [address]Ff. Darrick Cao EGFR-AF [place]AST [place] >60 Normal >=60 [facility] Comment on above: Performed By: #### T SH, CMP, LIPID ####[facility] [address] [place], [place] [address]Jv. Darrick Cao EGFR-NON AF [place]AST [place] >60 Normal >=60 [facility] Comment on above: Performed By: #### T SH, CMP, LIPID ####[facility] [address]ad[address] [place] [phone] Cao Globulin (S) [Mass/Vol] 4.2 g/dL Normal [facility] Comment on above: Performed By: #### T SH, CMP, LIPID ####[facility] [address]xsloe[address] [place] [phone]. Darrick Cao Urea nitrogen [Mass/Vol] 20.0 mg/dL Critically high 7.0-18.0 [facility] Comment on above: Performed By: #### T SH, CMP, LIPID ####[facility] [address] [place] [address]Dr. Darrick Cao Urea nitrogen/Creatinine [Mass ratio] 23.3 mg/mg Normal [facility] Comment on above: Performed By: #### T SH, CMP, LIPID ####[facility] [address] [place] [phone]. Darrick Cao TSHon 10-30-2022 TSH 6.415 uIU/mL Critically high 0.358-3.74 0 [facility] Comment on above: Performed By: #### T SH, CMP, LIPID ####[facility] [address] [place] [phone] Cao Thyroid Stim Hormone w/Rflxo n 10-30-2022 Thyroid Stim Hormone w/Rflx 6.415 [employer] Other VITAMIN B12on 10-30-2022 Cobalamin (Vitamin B12) [Mass/Vol] 664.0 pg/mL Normal 193.0-986. 0 [facility] Comment on above: Performed By: #### V ITB12 #### [facility] Laboratory [address] [place], [place] [address] Dr. Darrick Cao Vitamin B12on 10-30-2022 Cobalamin (Vitamin B12) [Mass/Vol] 664 pg/mL [employer] Other Automated erythrocytes count in urine sediment (number/area)Ordered By: Waqas Pierce on 10-23-2022 RBC Auto (Urine sed) [#/Area] 0-1 [HPF] 0-4 [facility] Automated leukocytes count i n urine sediment (number/area)Ordered By: Waqas Pierce on 10-23-2022 WBC Auto (Urine sed) [#/Area] 10-19 [HPF] 0-4 [facility] Bilirubin Test strip Ql (U)O rdered By: Waqas Pierce on 10-23-2022 Bilirubin Ql (U) Negative Negative [facility] Color Auto (U)Ordered By: Shay Pierce on 10-23-2022 Color (U) Yellow Yellow [facility] Ketones Auto test strip (U) [Mass/Vol]Ordered By: Waqas Pierce on 10-23-2022 Ketones (U) [Mass/Vol] Negative Negative [facility] Laboratory - UrinalysisOrder ed By: Waqas Pierce on 10-23-2022 Hyaline casts LM Ql (Urine sed) 0-8 [LPF] 0-8 [facility] Nitrite Test strip Ql (U)Ord ered By: Waqas Pierce on 10-23-2022 Nitrite Ql (U) Negative Negative [facility] Protein Auto test strip (U) [Mass/Vol]Ordered By: Waqas Pierce on 10-23-2022 Protein (U) [Mass/Vol] Negative Negative [facility] Specific gravity Auto test s trip (U) [Rel density]Ordered By: Waqas Pierce on 10-23-2022 Specific gravity (U) [Rel density] 1.016 1.001-1.03 0 [facility] Squamous epithelial cells de tection in urine sediment by light microscopyOrdered By: Waqas Pierce on 10-23-2022 Epithelial cells.squamous LM Ql (Urine sed) 5-9 [HPF] 0-2 [facility] Urine Cultureon 10-23-2022 Bacteria identified Cx Nom (U) [employer] Other Urine bacteria detection by automated methodOrdered By: Waqas Pierce on 10-23-2022 Bacteria Auto Ql (U) None seen None Seen [facility] Urine clarity by refractomet ry automatedOrdered By: Waqas Pierce on 10-23-2022 Clarity Refractometry automated (U) Clear Clear [facility] Urine glucose measurement by automated test strip (mass/volume)Ordered By: Waqas Pierce on 10-23-2022 Glucose Auto test strip (U) [Mass/Vol] Normal mg/dL Normal [facility] Urine hemoglobin detection b y automated test stripOrdered By: Waqas Pierce on 10-23-2022 Hemoglobin Auto test strip Ql (U) Negative Negative [facility] Urine leukocyte esterase det ection by automated test stripOrdered By: Waqas Pierce on 10-23-2022 Leukocyte esterase Auto test strip Ql (U) 3+ Negative [facility] Urobilinogen Auto test strip (U) [Mass/Vol]Ordered By: Waqas Pierce on 10-23-2022 Urobilinogen (U) [Mass/Vol] Normal mg/dL Normal [facility] pH Auto test strip (U)Ordere d By: Waqas Pierce on 10-23-2022 pH (U) 6.0 [pH] 5.0-9.0 [facility] A1C HEMOGLOBINon 10-13-2022 HbA1c (Bld) [Mass fraction] 5.9 % [employer] Other HbA1c (Bld) [Mass fraction]o n 10-13-2022 A1C HEMOGLOBIN [employer] Other XR FOOT LT MIN 3 VIEWSon [...] by: ALEX RYAN Date: 2022-09-20 16:40 Normal [facility] XR LSPINE 2_3 VIEWSon 2021 XR LSPINE 2_3 VIEWS EXAMINATION: XR LSPI NE 2_3 VIEWS HISTORY: Low back pain COMPARISON: 09/26/2019 FINDINGS: BONES: Mild dextrocurvature. Moderate to severe spondylosis and facet osteoarthropathy DISC SPACES: Multilevel disc space narrowing most significant at L5-S1 PARASPINOUS: Negative. No paraspinous abnormality is seen. OTHER: Severe right hip osteoarthropathy with hbdt-dr-ooew articulation. Left hip arthroplasty IMPRESSION: Moderate to severe degenerative changes Electronically authenticated by: SHAWNEE KELLY Date: 2022-08-20 11:47 Normal [facility] PAP ACOG PANEL 2: 30 to 65on 06-13-2022 . . Normal [facility] Comment on above: Result Comment: Perf ormed at: WB Performed By: #### [id number] ####[facility] [address] [place] [address]DrMiguel Cao Age Gdln ACOG Testing 30-65 Normal [facility] Comment on above: Performed By: #### [id number] ####[facility] [address] [place] [address]DrMiguel Cao DIAGNOSIS: Comment Normal [facility] Comment on above: Result Comment: NEGA TIVE FOR INTRAEPITHELIAL LESION OR MALIGNANCY. THIS SPECIMEN WAS RESCREENED PART OF OUR FRUIT SPRAYER PROGRAM. Performed at: WB Performed By: #### [id number] ####[facility] [address] [place] [address]DrMiguel Cao HPV Aptima Negative Normal Negative [facility] Comment on above: Result Comment: This nucleic acid amplification test detects fourteen high-risk HPV types (16,18,31,33,35,39,45,51,52,56,58,59,66,68) without differentiation. Performed at: =G Performed By: #### [id number] ####[facility] [address] [place] [address]DrMiguel Cao Methodology: Comment Normal [facility] Comment on above: Result Comment: This liquid based ThinPrep(R) pap test was screened with the use of an image guided system. Performed at: WB Performed By: #### [id number] ####[facility] [address] [place] [address]Dr. Darrick Cao Note: Comment Normal [facility] Comment on above: Result Comment: The Pap smear is a screening test designed to aid in the detection of premalignant and malignant conditions of the uterine cervix. It is not a diagnostic procedure and should not be used as the sole means of detecting cervical cancer. Both false-positive and false-negative reports do occur. . Performed at: WB Performed By: #### [id number] ####[facility] [address] [place] [address]Dr. Darrick Cao Performed by: Comment Normal [facility] Comment on above: Result Comment: Solange Ann, Executive Director [employer] Brand Marketing (ASCP) Performed at: WB Performed By: #### [id number] ####[facility] [address] [place], [place] [address]Dr. Darrick Cao QC reviewed by: Comment Normal [facility] Comment on above: Result Comment: Navi Rush, Supervisory Executive Director [employer] Brand Marketing (ASCP) Performed at: WB Performed By: #### 4 [id number] ####[facility] [address] [place], [place] [address]Dr. Darrick Cao Specimen adequacy: Comment Normal [facility] Comment on above: Result Comment: Sati sfactory for evaluation. Endocervical and/or squamous metaplastic cells (endocervical component) are present. Performed at: WB Performed By: #### [id number] ####[facility] [address] [place], [place] [address]Dr. Darrick Cao US PELVIS AND TRANSVAGon US [...] ARIELA SCHWAB Date: 2022-06-13 14:50 Normal [facility] ACID FAST SMEAR AND CXon Acid Fast Culture Negative Normal [facility] Comment on above: Result Comment: No a liliya fast bacilli isolated after 6 weeks. Performed By: #### A FB ####[facility] [address] [place], [place] [address]Dr. Darrick Coa Acid Fast Smear Negative Normal [facility] Comment on above: Performed By: #### A FB ####[facility] On[address] [place], [place] [address]Dr. Darrick Cao [employer] Specimen Processing Tissue Grinding Normal [facility] Comment on above: Performed By: #### A FB ####[facility] [address] [place], [place] [address]Dr. Darrick Cao FUNGAL CULTUREon 05-23-2022 Fungus (Mycology) Culture Final report Normal [facility] Comment on above: Performed By: #### C XFUN ####[facility] [address] [place], [place] [address]Dr. Darrick Cao Fungus Stain Final report Normal [facility] Comment on above: Performed By: #### C XFUN ####[facility] [address] [place], [place] [address]Dr. Darrick Cao Result 1 Comment Normal [facility] Comment on above: Result Comment: MAYE/ Calcofluor preparation: no fungus observed. Performed By: #### C XFUN ####[facility] [address] [place], [place] [address]Dr. Darrick Cao Result Comment: No y east or mold isolated after 4 weeks. WOUND CULTUREon 04-28-2022 Bacteria identified Aer cx Nom (Unsp spec) Final report Normal [facility] Comment on above: Performed By: #### C XWND #### [facility] Laboratory [address] [place] [address] Dr. Darrick Cao Result 1 Comment Normal [facility] Comment on above: Result Comment: No g rowth in 36 - 48 hours. Performed By: #### C XWND #### [facility] Laboratory [address] [place] [address] Dr. Darrick Cao CULTURE WOUNDon 04-26-2022 CULTURE [...] S F Vancomycin 1 S F Normal [facility] Comment on above: Performed By: #### W OUNDCX ####[facility] [address] [place] [address]Dr. Darrick Cao CBC AUTO DIFFon 04-25-2022 BASO # 0.0 103/ul Normal 0.0-0.1 [facility] Comment on above: Performed By: #### C XWND #### [facility] Laboratory [address] [place] [address] Dr. Darrick Cao Basophils/100 WBC (Bld) 0.5 % Normal 0.2-2.0 [facility] Comment on above: Performed By: #### C XWND #### [facility] Laboratory [address] [place] [address] Dr. Darrick Cao EO # 0.1 103/ul Normal 0.0-0.7 [facility] Comment on above: Performed By: #### C XWND #### [facility] Laboratory [address] [place] [address] Dr. Darrick Cao Eosinophils/100 WBC (Bld) 1.1 % Normal 0.9-7.0 [facility] Comment on above: Performed By: #### C XWND #### [facility] Laboratory [address] [place] [address] Dr. Darrick Cao Erythrocyte distribution width (RBC) [Ratio] 15.8 % Critically high 11.0-15.0 [facility] Comment on above: Performed By: #### C XWND #### [facility] Laboratory [address] [place] [address] Dr. Darrick Cao Hematocrit (Bld) [Volume fraction] 31.7 % Critically low 36.0-48.0 [facility] Comment on above: Performed By: #### C XWND #### [facility] Laboratory [address] [place] [address] Dr. Darrick Cao Hemoglobin (Bld) [Mass/Vol] 10.1 g/dL Critically low 12.0-16.0 [facility] Comment on above: Performed By: #### C XWND #### [facility] Laboratory [address] [place] [address] Dr. Darrick Cao IG # 0.02 10e3/ul Normal 0.00-0.03 [facility] Comment on above: Performed By: #### C XWND #### [facility] Laboratory [address] [place] [address] Dr. Darrick Cao IG % 0.3 % Normal 0.0-0.5 [facility] Comment on above: Performed By: #### C XWND #### [facility] Laboratory [address] [place] [address] Dr. Darrick Cao LYMPH # 1.8 103/ul Normal 1.2-3.8 [facility] Comment on above: Performed By: #### C XWND #### [facility] Laboratory [address] [place] [address] Dr. Darrick Cao Lymphocytes/100 WBC (Bld) 24.3 % Normal 20.5-60.0 [facility] Comment on above: Performed By: #### C XWND #### [facility] Laboratory [address] [place] [address] Dr. Darrick Cao MANUAL DIFF REQ NO Normal [facility] Comment on above: Performed By: #### C XWND #### [facility] Laboratory [address] [place] [address] [address] Darrick Cao MCH (RBC) [Entitic mass] 28.0 pg Normal 26.7-34.0 [facility] Comment on above: Performed By: #### C XWND #### [facility] Laboratory [address] [place] [address] Dr. Darrick Cao MCHC (RBC) [Mass/Vol] 31.9 g/dL Normal 29.9-35.2 [facility] Comment on above: Performed By: #### C XWND #### [facility] Laboratory [address] [place] [address] Dr. Darrick Cao MCV (RBC) [Entitic vol] 87.8 fL Normal 81.0-99.0 [facility] Comment on above: Performed By: #### C XWND #### [facility] Laboratory [address] [place] [address] Dr. Darrick Cao MONO # 0.5 103/ul Normal 0.3-0.8 [facility] Comment on above: Performed By: #### C XWND #### [facility] Laboratory [address] [place] [address] Dr. Darrick Cao Monocytes/100 WBC (Bld) 7.2 % Normal 1.7-12.0 [facility] Comment on above: Performed By: #### C XWND #### [facility] Laboratory [address] [place] [address] Dr. Darrick Cao NEUT # 5.0 103/ul Normal 1.4-6.5 [facility] Comment on above: Performed By: #### C XWND #### [facility] Laboratory [address] [place] [address] Dr. Darrick Cao Neutrophils/100 WBC (Bld) 66.6 % Normal 43.0-75.0 [facility] Comment on above: Performed By: #### C XWND #### [facility] Laboratory [address] [place] [address] Dr. Darrick Cao Platelet mean volume (Bld) [Entitic vol] 9.6 fL Normal 9.5-13.5 [facility] Comment on above: Performed By: #### C XWND #### [facility] Laboratory [address] [place] [address] [address] Darrick Cao PLT 295 103/ul Normal 150-450 [facility] Comment on above: Performed By: #### C XWND #### [facility] Laboratory [address] [place] [address] [address] Darrick Cao RBC 3.61 106/ul Critically low 4.20-5.40 [facility] Comment on above: Performed By: #### C XWND #### [facility] Laboratory [address] [place] [address] [address] Darrick Cao WBC 7.5 103/ul Normal 4.0-11.0 [facility] Comment on above: Performed By: #### C XWND #### [facility] Laboratory [address] [place] [address] [address] Darrick Cao ER URINE PROFILEon 2 Bilirubin Ql (U) Negative Normal NEGATIVE [facility] Comment on above: Performed By: #### U MICRO, ERUR ####[facility] [address] [place] [address]DrMiguel Cao Clarity (U) CLEAR Normal CLEAR [facility] Comment on above: Performed By: #### U MICRO, ERUR ####[facility] [address] [place] [address]DrMiguel Cao Color (U) LT. YELLOW Normal YELLOW [facility] Comment on above: Performed By: #### U MICRO, ERUR ####[facility] [address] [place] [address]DrMiguel FORRESTAHD A micrscopic examina tion will be performed if indicated. Normal [facility] Comment on above: Performed By: #### U MICRO, ERUR ####[facility] [address] [place] [address]DrMiguel Cao Glucose Ql (U) Negative Normal NEGATIVE [facility] Comment on above: Performed By: #### U MICRO, ERUR ####[facility] [address] [place] [address]Dr. Darrick Cao Hemoglobin Ql (U) SMALL Abnormal NEGATIVE [facility] Comment on above: Performed By: #### U MICRO, ERUR ####[facility] [address] [place] [address]Dr. Darrick Cao Ketones Ql (U) Negative Normal NEGATIVE [facility] Comment on above: Performed By: #### U MICRO, ERUR ####[facility] [address] [place] [address]Dr. Darrick Cao LEUKOCYTES Negative Normal NEGATIVE [facility] Comment on above: Performed By: #### U MICRO, ERUR ####[facility] [address] [place], [place] [address]Dr. Darrick Cao Nitrite Ql (U) Negative Normal NEGATIVE [facility] Comment on above: Performed By: #### U MICRO, ERUR ####[facility] [address] [place], [place] [address]Dr. Darrick Cao pH (U) 6.0 [pH] Normal 5-9 [facility] Comment on above: Performed By: #### U MICRO, ERUR ####[facility] [address] [place], [place] [address]Dr. Darrick Cao SPEC GRAVITY 1.020 Normal 1.005-<=1. 025 [facility] Comment on above: Performed By: #### U MICRO, ERUR ####[facility] [address] [place], [place] [address]Dr. Darrick Cao UA PROTEIN Negative Normal NEGATIVE/ TRACE [facility] Comment on above: Performed By: #### U MICRO, ERUR ####[facility] [address] [place], [place] [address]Dr. Darrick Cao UR MICRO IND INDICATED Normal [facility] Comment on above: Performed By: #### U MICRO, ERUR ####[facility] [address] [place] [address]Dr. Darrick Cao Urobilinogen Qn (U) 0.2 {Larissa'U}/dL Normal 0.2 - 1. 0 [facility] Comment on above: Performed By: #### U MICRO, ERUR ####[facility] [address] [place] [address]Dr. Darrick Cao POINT OF CARE GLUCOSEon 04-01 Glucose [Mass/Vol] 118 mg/dL Critically high 74-106 [facility] Comment on above: Performed By: #### P OCGLUC ####[facility] [address] [place] [address]Dr. Darrick Cao PROF 14(COMP METB)on 022 Albumin [Mass/Vol] 2.9 g/dL Critically low 3.4-5.0 [facility] Comment on above: Performed By: #### P OCGLUC #### [facility] Laboratory [address] [place] [address] [address] Darrick Cao Albumin/Globulin [Mass ratio] 0.8 {ratio} Normal [facility] Comment on above: Performed By: #### P OCGLUC #### [facility] Laboratory [address] [place] [address] [address] Darrick Cao ALP [Catalytic activity/Vol] 113 U/L Normal 46-116 [facility] Comment on above: Performed By: #### P OCGLUC #### [facility] Laboratory [address] [place] [address] [address] Darrick Cao ALT [Catalytic activity/Vol] 56 U/L Normal 14-59 [facility] Comment on above: Performed By: #### P OCGLUC #### [facility] Laboratory [address] [place] [address] [address] Darrick Cao Anion gap [Moles/Vol] 8.8 mmol/L Normal [facility] Comment on above: Performed By: #### P OCGLUC #### [facility] Laboratory [address] [place] [address] [address] Darrick Cao AST [Catalytic activity/Vol] 30 U/L Normal 15-37 [facility] Comment on above: Performed By: #### P OCGLUC #### [facility] Laboratory [address] [place] [address] [address] Darrick Cao Bilirubin [Mass/Vol] 0.3 mg/dL Normal 0.2-1.0 [facility] Comment on above: Performed By: #### P OCGLUC #### [facility] Laboratory [address] [place] [address] [address] Darrick Cao Calcium [Mass/Vol] 8.6 mg/dL Normal 8.5-10.1 [facility] Comment on above: Performed By: #### P OCGLUC #### [facility] Laboratory [address] [place] [address] [address] Darrick Cao Chloride [Moles/Vol] 105 mmol/L Normal 98-107 [facility] Comment on above: Performed By: #### P OCGLUC #### [facility] Laboratory [address] [place] [address] [address] Darrick Cao CO2 [Moles/Vol] 30.4 mmol/L Normal 21.0-32.0 [facility] Comment on above: Performed By: #### P OCGLUC #### [facility] Laboratory [address] [place] [address] [address] Darrick Cao Creatinine [Mass/Vol] 0.82 mg/dL Normal 0.55-1.02 [facility] Comment on above: Performed By: #### P OCGLUC #### [facility] [address] [address] [address] Darrick Cao EGFR-AF [place]AST [place] >60 Normal >=60 [facility] Comment on above: Performed By: #### P OCGLUC #### [facility] [address] [address] [address] Darrick Cao EGFR-NON AF [place] >60 Normal >=60 [facility] Comment on above: Performed By: #### P OCGLUC #### [facility] [address] [address] [address] Darrick Cao Globulin (S) [Mass/Vol] 3.6 g/dL Normal [facility] Comment on above: Performed By: #### P OCGLUC #### [facility] [address] [address] [address] Darrick Cao Glucose [Mass/Vol] 103 mg/dL Normal 74-[address] [facility] Comment on above: Performed By: #### P OCGLUC #### [facility] [address] [address] [address] Darrick Cao Potassium [Moles/Vol] 4.2 mmol/L Normal 3.5-5.1 [facility] Comment on above: Performed By: #### P OCGLUC #### [facility] [address] [address] [address] Darrick Cao Protein [Mass/Vol] 6.5 g/dL Normal 6.4-8.[address] [facility] Comment on above: Performed By: #### P OCGLUC #### [facility] [address] [address] [address] Darrick Cao Sodium [Moles/Vol] 140 mmol/L Normal 136-145 [facility] Comment on above: Performed By: #### P OCGLUC #### [facility] [address] [address] [address] Darrick Cao Urea nitrogen [Mass/Vol] 11.0 mg/dL Normal 7.0-18.0 [facility] Comment on above: Performed By: #### P OCGLUC #### [facility] [address] [address] [address] Darrick Cao Urea nitrogen/Creatinine [Mass ratio] 13.4 mg/mg Normal [facility] Comment on above: Performed By: #### P OCGLUC #### [facility] [address] [address] [address] Darrick Cao URINE MICROSCOPIC ONLYon BACTERIA NONE SEEN Normal NONE SEEN [facility] Comment on above: Performed By: #### U MICRO, ERUR ####[facility] [id number] [address]Dr. Darrick Cao Bacteria identified Cx Nom (U) NOT INDICATED Normal [facility] Comment on above: Performed By: #### U MICRO, ERUR ####[facility] [id number] [address]Dr. Darrick Cao CAST NONE SEEN Normal NONE SEEN [facility] Comment on above: Performed By: #### U MICRO, ERUR ####[facility] [id number] [address]Dr. Darrick Cao Crystals LM Nom (Urine sed) NONE SEEN Normal NONE SEEN [facility] Comment on above: Performed By: #### U MICRO, ERUR ####[facility] [id number] [address]Dr. Darrick Cao Epithelial cells LM Ql (Urine sed) RARE Normal NONE SEEN /RARE [facility] Comment on above: Performed By: #### U MICRO, ERUR ####[facility] [id number] [address]Dr. Darrick Cao MUCOUS NONE SEEN Normal NONE SEEN [facility] Comment on above: Performed By: #### U MICRO, ERUR ####[facility] [id number] [address]Dr. Darrick Cao RBC 5-10 Abnormal 0-2 [facility] Comment on above: Performed By: #### U MICRO, ERUR ####[facility] [id number] [address]Dr. Darrick Cao WBC 0-2 Abnormal NONE SEEN [facility] Comment on above: Performed By: #### U MICRO, ERUR ####[facility] [id number] [address]Dr. Darrick Cao XR CHEST 2 Von 04-25-2022 [...] AMY FOWLER Date: 2022-04-25 20:07 Normal [facility] CBC AUTO DIFFon 04-24-2022 BASO # 0.1 103/ul Normal 0.0-0.1 [facility] Comment on above: Performed By: #### P OCGLUC #### [facility] [address] [address] [address] Darrick Cao Basophils/100 WBC (Bld) 0.8 % Normal 0.2-2.0 [facility] Comment on above: Performed By: #### P OCGLUC #### [facility] [address] [place] [address] Dr. Darrick Cao EO # 0.1 103/ul Normal 0.0-0.7 [facility] Comment on above: Performed By: #### P OCGLUC #### [facility] [address] [place] [address] Dr. Darrick Cao Eosinophils/100 WBC (Bld) 1.9 % Normal 0.9-7.0 [facility] Comment on above: Performed By: #### P OCGLUC #### [facility] [address] [place] [address] Dr. Darrick Cao Erythrocyte distribution width (RBC) [Ratio] 15.6 % Critically high 11.0-15.0 [facility] Comment on above: Performed By: #### P OCGLUC #### [facility] [address] [place] [address] Dr. Darrick Cao Hematocrit (Bld) [Volume fraction] 35.4 % Critically low 36.0-48.0 [facility] Comment on above: Performed By: #### P OCGLUC #### [facility] [address] [place] [address] Dr. Darrick Cao Hemoglobin (Bld) [Mass/Vol] 11.4 g/dL Critically low 12.0-16.0 [facility] Comment on above: Performed By: #### P OCGLUC #### [facility] [address] [place] [address] Dr. Darrick Cao IG # 0.02 10e3/ul Normal 0.00-0.03 [facility] Comment on above: Performed By: #### P OCGLUC #### [facility] [address] [place] [address] Dr. Darrick Cao IG % 0.3 % Normal 0.0-0.5 [facility] Comment on above: Performed By: #### P OCGLUC #### [facility] [address] [address] [address] Darrick Cao LYMPH # 1.9 103/ul Normal 1.2-3.8 [facility] Comment on above: Performed By: #### P OCGLUC #### [facility] [address] [address] [address] Darrick Cao Lymphocytes/100 WBC (Bld) 30.2 % Normal 20.5-60.0 [facility] Comment on above: Performed By: #### P OCGLUC #### [facility] [address] [address] [address] Darrick Cao MANUAL DIFF REQ NO Normal [facility] Comment on above: Performed By: #### P OCGLUC #### [facility] [address] [place] [address] Dr. Darrick Cao MCH (RBC) [Entitic mass] 27.9 pg Normal 26.7-34.0 [facility] Comment on above: Performed By: #### P OCGLUC #### [facility] [address] [place] [address] Dr. Darrick Cao MCHC (RBC) [Mass/Vol] 32.2 g/dL Normal 29.9-35.2 [facility] Comment on above: Performed By: #### P OCGLUC #### [facility] [address] [place] [address] Dr. Darrick Cao MCV (RBC) [Entitic vol] 86.6 fL Normal 81.0-99.0 [facility] Comment on above: Performed By: #### P OCGLUC #### [facility] [address] [place] [address] Dr. Darrick Cao MONO # 0.6 103/ul Normal 0.3-0.8 [facility] Comment on above: Performed By: #### P OCGLUC #### [facility] [address] [place] [address] Dr. Darrick Cao Monocytes/100 WBC (Bld) 9.0 % Normal 1.7-12.0 [facility] Comment on above: Performed By: #### P OCGLUC #### [facility] [address] [place] [address] Dr. Darrick Cao NEUT # 3.7 103/ul Normal 1.4-6.5 [facility] Comment on above: Performed By: #### P OCGLUC #### [facility] [address] [place] [address] Dr. Darrick Cao Neutrophils/100 WBC (Bld) 57.8 % Normal 43.0-75.0 [facility] Comment on above: Performed By: #### P OCGLUC #### [facility] [address] [place] [address] Dr. Darrick Cao Platelet mean volume (Bld) [Entitic vol] 9.5 fL Normal 9.5-13.5 [facility] Comment on above: Performed By: #### P OCGLUC #### [facility] [address] [place] [address] Dr. Darrick Cao PLT 256 103/ul Normal 150-450 [facility] Comment on above: Performed By: #### P OCGLUC #### [facility] [address] [place] [address] Dr. Darrick Cao RBC 4.09 106/ul Critically low 4.20-5.40 [facility] Comment on above: Performed By: #### P OCGLUC #### [facility] [address] [place] [address] Dr. Darrick Cao WBC 6.3 103/ul Normal 4.0-11.0 [facility] Comment on above: Performed By: #### P OCGLUC #### [facility] [address] [place] [address] Dr. Darrick Cao GRAM STAINon 04-24-2022 COMMENTS NO ORGANISMS OBSERVED Normal [facility] Comment on above: Performed By: #### C XWND #### [facility] [address] [place] [address] Dr. Darrick Cao DIPHTHEROIDS Normal [facility] Comment on above: Performed By: #### C XWND #### [facility] [address] [place] [address] Dr. Darrick Cao EPITHELIALS Normal [facility] Comment on above: Performed By: #### C XWND #### [facility] [address] [address] [address] Darrick Cao FUNGAL ELEMENTS Normal [facility] Comment on above: Performed By: #### C XWND #### [facility] [address] [address] [address] Darrick Cao GRAM NEG BACILLI Normal [facility] Comment on above: Performed By: #### C XWND #### [facility] [address] [address] [address] Darrick SOLOMON NEG DIPPLOCOCCI Normal [facility] Comment on above: Performed By: #### C XWND #### [facility] [address] [address] [address] Darrick Cao GRAM POS BACILLI Normal [facility] Comment on above: Performed By: #### C XWND #### [facility] [address] [address] [address] Darrick Cao GRAM POSITIVE COCCI Normal [facility] Comment on above: Performed By: #### C XWND #### [facility] [address] [address] [address] Darrick Cao GRAM STAIN SOURCE Post irrigation left foot Normal [facility] Comment on above: Performed By: #### C XWND #### [facility] [address] [address] [address] Darrick Cao GS_DIPTH [facility] Comment on above: Performed By: #### C XWND #### [facility] [address] [address] [address] Darrick Cao WBC NONE SEEN Normal [facility] Comment on above: Performed By: #### C XWND #### [facility] [address] [address] [address] Darrick Cao POINT OF CARE GLUCOSEon 07- Glucose [Mass/Vol] 132 mg/dL Critically high 74-106 [facility] Comment on above: Performed By: #### P OCGLUC #### [facility] [address] [address] [address] Darrick Cao Glucose [Mass/Vol] 105 mg/dL Normal 74-106 [facility] Comment on above: Performed By: #### P OCGLUC ####[facility] [id number] [address]. Darrick Cao PROF 14(COMP METB)on 022 Albumin [Mass/Vol] 2.9 g/dL Critically low 3.4-5.0 [facility] Comment on above: Performed By: #### P OCGLUC #### [facility] [address] [address] [address] Darrick Cao Albumin/Globulin [Mass ratio] 0.8 {ratio} Normal [facility] Comment on above: Performed By: #### P OCGLUC #### [facility] [address] [address] [address] Darrick Cao ALP [Catalytic activity/Vol] 122 U/L Critically high 46-116 [facility] Comment on above: Performed By: #### P OCGLUC #### [facility] [address] [address] [address] Darrick Cao ALT [Catalytic activity/Vol] 65 U/L Critically high 14-59 [facility] Comment on above: Performed By: #### P OCGLUC #### [facility] [address] [address] [address] Darrick Cao Anion gap [Moles/Vol] 12.2 mmol/L Normal [facility] Comment on above: Performed By: #### P OCGLUC #### [facility] [address] [address] [address] Darrick Cao AST [Catalytic activity/Vol] 28 U/L Normal 15-37 [facility] Comment on above: Performed By: #### P OCGLUC #### [facility] [address] [address] [address] Darrick Cao Bilirubin [Mass/Vol] 0.3 mg/dL Normal 0.2-1.0 [facility] Comment on above: Performed By: #### P OCGLUC #### [facility] [address] [address] [address] Darrick Cao Calcium [Mass/Vol] 8.5 mg/dL Normal 8.5-10.1 [facility] Comment on above: Performed By: #### P OCGLUC #### [facility] [address] [place] [address] Dr. Darrick Cao Chloride [Moles/Vol] 107 mmol/L Normal 98-107 [facility] Comment on above: Performed By: #### P OCGLUC #### [facility] [address] [place] [address] Dr. Darrick Cao CO2 [Moles/Vol] 25.9 mmol/L Normal 21.0-32.0 [facility] Comment on above: Performed By: #### P OCGLUC #### [facility] [address] [place] [address] Dr. Darrick Cao Creatinine [Mass/Vol] 0.87 mg/dL Normal 0.55-1.02 [facility] Comment on above: Performed By: #### P OCGLUC #### [facility] [address] [place] [address] Dr. Darrick Cao EGFR-AF [place] >60 Normal >=60 [facility] Comment on above: Performed By: #### P OCGLUC #### [facility] [address] [place] [address] Dr. Darrick Cao EGFR-NON AF [place] >60 Normal >=60 [facility] Comment on above: Performed By: #### P OCGLUC #### [facility] [address] [place] [address] Dr. Darrick Cao Globulin (S) [Mass/Vol] 3.8 g/dL Normal [facility] Comment on above: Performed By: #### P OCGLUC #### [facility] [address] [place] [address] Dr. Darrick Cao Glucose [Mass/Vol] 107 mg/dL Critically high 74-106 [facility] Comment on above: Performed By: #### P OCGLUC #### [facility] [address] [place] [address] Dr. Darrick Cao Potassium [Moles/Vol] 4.1 mmol/L Normal 3.5-5.1 [facility] Comment on above: Performed By: #### P OCGLUC #### [facility] [address] [place] [address] Dr. Darrick Cao Protein [Mass/Vol] 6.7 g/dL Normal 6.4-8.2 [facility] Comment on above: Performed By: #### P OCGLUC #### [facility] [address] [place] [address] Dr. Darrick Cao Sodium [Moles/Vol] 141 mmol/L Normal 136-145 [facility] Comment on above: Performed By: #### P OCGLUC #### [facility] [address] [place] [address] Dr. Darrick Cao Urea nitrogen [Mass/Vol] 10.0 mg/dL Normal 7.0-18.0 [facility] Comment on above: Performed By: #### P OCGLUC #### [facility] [address] [place] [address] Dr. Darrick Cao Urea nitrogen/Creatinine [Mass ratio] 11.5 mg/mg Normal [facility] Comment on above: Performed By: #### P OCGLUC #### [facility] [address] [place] [address] Dr. Darrick Cao VANCOMYCIN TROUGHon 04-24-20 VANCOMYCIN TROUGH 9.6 ug/ml Normal 5.0-20.0 [facility] Comment on above: Performed By: #### V ANCT #### [facility] [address] [place] [address] Dr. Darrick Cao CBC AUTO DIFFon 04-23-2022 BASO # 0.1 103/ul Normal 0.0-0.1 [facility] Comment on above: Performed By: #### C XWND #### [facility] [address] [place] [address] Dr. Darrick Cao Basophils/100 WBC (Bld) 0.6 % Normal 0.2-2.0 [facility] Comment on above: Performed By: #### C XWND #### [facility] [address] [place] [address] Dr. Darrick Cao EO # 0.1 103/ul Normal 0.0-0.7 [facility] Comment on above: Performed By: #### C XWND #### [facility] [address] [place] [address] Dr. Darrick Cao Eosinophils/100 WBC (Bld) 0.6 % Critically low 0.9-7.0 [facility] Comment on above: Performed By: #### C XWND #### [facility] [address] [place] [address] Dr. Darrick Cao Erythrocyte distribution width (RBC) [Ratio] 15.8 % Critically high 11.0-15.0 [facility] Comment on above: Performed By: #### C XWND #### [facility] [address] [place] [address] Dr. Darrick Cao Hematocrit (Bld) [Volume fraction] 34.0 % Critically low 36.0-48.0 [facility] Comment on above: Performed By: #### C XWND #### [facility] [address] [place] [address] Dr. Darrick Cao Hemoglobin (Bld) [Mass/Vol] 11.0 g/dL Critically low 12.0-16.0 [facility] Comment on above: Performed By: #### C XWND #### [facility] [address] [place] [address] Dr. Darrick Cao IG # 0.03 10e3/ul Normal 0.00-0.03 [facility] Comment on above: Performed By: #### C XWND #### [facility] [address] [place] [address] Dr. Darrick Cao IG % 0.4 % Normal 0.0-0.5 [facility] Comment on above: Performed By: #### C XWND #### [facility] [address] [place] [address] Dr. Darrick Cao LYMPH # 1.6 103/ul Normal 1.2-3.8 [facility] Comment on above: Performed By: #### C XWND #### [facility] [address] [place] [address] Dr. Darrick Cao Lymphocytes/100 WBC (Bld) 19.6 % Critically low 20.5-60.0 [facility] Comment on above: Performed By: #### C XWND #### [facility] [address] [place] [address] Dr. Darrick Cao MANUAL DIFF REQ NO Normal [facility] Comment on above: Performed By: #### C XWND #### [facility] [address] [place] [address] Dr. Darrick Cao MCH (RBC) [Entitic mass] 28.1 pg Normal 26.7-34.0 [facility] Comment on above: Performed By: #### C XWND #### [facility] [address] [place] [address] Dr. Darrick Cao MCHC (RBC) [Mass/Vol] 32.4 g/dL Normal 29.9-35.2 [facility] Comment on above: Performed By: #### C XWND #### [facility] [address] [place] [address] Dr. Darrick Cao MCV (RBC) [Entitic vol] 87.0 fL Normal 81.0-99.0 [facility] Comment on above: Performed By: #### C XWND #### [facility] [address] [place] [address] Dr. Darrick Cao MONO # 0.8 103/ul Normal 0.3-0.8 [facility] Comment on above: Performed By: #### C XWND #### [facility] [address] [place] [address] Dr. Darrick Cao Monocytes/100 WBC (Bld) 10.3 % Normal 1.7-12.0 [facility] Comment on above: Performed By: #### C XWND #### [facility] [address] [place] [address] Dr. Darrick Cao NEUT # 5.4 103/ul Normal 1.4-6.5 [facility] Comment on above: Performed By: #### C XWND #### [facility] [address] [address] [address] Darrick Cao Neutrophils/100 WBC (Bld) 68.5 % Normal 43.0-75.0 [facility] Comment on above: Performed By: #### C XWND #### [facility] [address] [address] [address] Darrick Cao Platelet mean volume (Bld) [Entitic vol] 9.9 fL Normal 9.5-13.5 [facility] Comment on above: Performed By: #### C XWND #### [facility] [address] [address] [address] Darrick Cao PLT 276 103/ul Normal 150-450 [facility] Comment on above: Performed By: #### C XWND #### [facility] [address] [address] [address] Darrick Cao RBC 3.91 106/ul Critically low 4.20-5.40 [facility] Comment on above: Performed By: #### C XWND #### [facility] [address] [address] [address] Darrick Cao WBC 7.9 103/ul Normal 4.0-11.0 [facility] Comment on above: Performed By: #### C XWND #### [facility] [address] [address] [address] Darrick Cao POINT OF CARE GLUCOSEon 04-01 Glucose [Mass/Vol] 138 mg/dL Critically high 74-106 [facility] Comment on above: Performed By: #### P OCGLUC ####[facility] [id number] [id number] Darrick Cao Glucose [Mass/Vol] 151 mg/dL Critically high 74-106 [facility] Comment on above: Performed By: #### P OCGLUC #### [facility] [address] [address] [address] Darrick Cao Glucose [Mass/Vol] 141 mg/dL Critically high 74-106 [facility] Comment on above: Performed By: #### P OCGLUC ####[facility] [id number] [place], [place] [id number]. Darrick Cao PROF 14(COMP METB)on 022 Albumin [Mass/Vol] 3.0 g/dL Critically low 3.4-5.0 [facility] Comment on above: Performed By: #### C XWND #### [facility] [address] [address] [address] Darrick Cao Albumin/Globulin [Mass ratio] 0.9 {ratio} Normal [facility] Comment on above: Performed By: #### C XWND #### [facility] [address] [place] [address] Dr. Darrick Cao ALP [Catalytic activity/Vol] 128 U/L Critically high 46-116 [facility] Comment on above: Performed By: #### C XWND #### [facility] [address] [place] [address] Dr. Darrick Cao ALT [Catalytic activity/Vol] 71 U/L Critically high 14-59 [facility] Comment on above: Performed By: #### C XWND #### [facility] [address] [place] [address] Dr. Darrick Cao Anion gap [Moles/Vol] 13.1 mmol/L Normal [facility] Comment on above: Performed By: #### C XWND #### [facility] [address] [address] [address] Darrick Cao AST [Catalytic activity/Vol] 50 U/L Critically high 15-37 [facility] Comment on above: Performed By: #### C XWND #### [facility] [address] [address] [address] Darrick Cao Bilirubin [Mass/Vol] 0.3 mg/dL Normal 0.2-1.0 [facility] Health Comment on above: Performed By: #### C XWND #### [facility] [address] [address] [address] Darrick Cao Calcium [Mass/Vol] 8.2 mg/dL Critically low 8.5-10.1 Th e [facility] Comment on above: Performed By: #### C XWND #### [facility] [address] [place] [address] Dr. Darrick Cao Chloride [Moles/Vol] 110 mmol/L Critically high 98-107 [facility] Comment on above: Performed By: #### C XWND #### [facility] [address] [place] [address] Dr. Darrick Cao CO2 [Moles/Vol] 23.4 mmol/L Normal 21.0-32.0 [facility] Comment on above: Performed By: #### C XWND #### [facility] [address] [place] [address] Dr. Darrick Cao Creatinine [Mass/Vol] 0.96 mg/dL Normal 0.55-1.02 [facility] Comment on above: Performed By: #### C XWND #### [facility] [address] [place] [address] Dr. Darrick Cao EGFR-AF [place] >60 Normal >=60 [facility] Comment on above: Performed By: #### C XWND #### [facility] [address] [place] [address] Dr. Darrick Cao EGFR-NON AF [place] 59 mL/min/1.73m2 Critically low >=60 [facility] Comment on above: Performed By: #### C XWND #### [facility] [address] [place] [address] Dr. Darrick Cao Globulin (S) [Mass/Vol] 3.3 g/dL Normal [facility] Comment on above: Performed By: #### C XWND #### [facility] [address] [place] [address] Dr. Darrick Cao Glucose [Mass/Vol] 116 mg/dL Critically high 74-106 [facility] Comment on above: Performed By: #### C XWND #### [facility] [address] [place] [address] Dr. Darrick Cao Potassium [Moles/Vol] 4.5 mmol/L Normal 3.5-5.1 [facility] Comment on above: Performed By: #### C XWND #### [facility] [address] [place] [address] Dr. Darrick Cao Protein [Mass/Vol] 6.3 g/dL Critically low 6.4-8.2 Th e [facility] Comment on above: Performed By: #### C XWND #### [facility] [address] [place] [address] Dr. Darrick Cao Sodium [Moles/Vol] 142 mmol/L Normal 136-145 [facility] Comment on above: Performed By: #### C XWND #### [facility] [address] [place] [address] Dr. Darrick Cao Urea nitrogen [Mass/Vol] 14.0 mg/dL Normal 7.0-18.0 [facility] Comment on above: Performed By: #### C XWND #### [facility] [address] [place] [address] Dr. Darrick Cao Urea nitrogen/Creatinine [Mass ratio] 14.6 mg/mg Normal [facility] Comment on above: Performed By: #### C XWND #### [facility] [address] [place] [address] Dr. Darrick Cao CBC AUTO DIFFon 04-22-2022 BASO # 0.1 103/ul Normal 0.0-0.1 [facility] Comment on above: Performed By: #### C BC #### [facility] [address] [place] [address] Dr. Darrick Cao Basophils/100 WBC (Bld) 0.7 % Normal 0.2-2.0 [facility] Comment on above: Performed By: #### C BC #### [facility] [address] [place] [address] Dr. Darrick Cao EO # 0.1 103/ul Normal 0.0-0.7 [facility] Comment on above: Performed By: #### C BC #### [facility] [address] [place] [address] Dr. Darrick Cao Eosinophils/100 WBC (Bld) 0.5 % Critically low 0.9-7.0 [facility] Comment on above: Performed By: #### C BC #### [facility] [address] [place] [address] Dr. Darrick Cao Erythrocyte distribution width (RBC) [Ratio] 15.8 % Critically high 11.0-15.0 [facility] Comment on above: Performed By: #### C BC #### [facility] [address] [place] [address] Dr. Darrick Cao Hematocrit (Bld) [Volume fraction] 39.8 % Normal 36.0-48.0 [facility] Comment on above: Performed By: #### C BC #### [facility] [address] [place] [address] Dr. Darrick Cao Hemoglobin (Bld) [Mass/Vol] 12.9 g/dL Normal 12.0-16.0 [facility] Comment on above: Performed By: #### C BC #### [facility] [address] [place] [address] Dr. Darrick Cao IG # 0.03 10e3/ul Normal 0.00-0.03 [facility] Comment on above: Performed By: #### C BC #### [facility] [address] [place] [address] Dr. Darrick Cao IG % 0.3 % Normal 0.0-0.5 [facility] Comment on above: Performed By: #### C BC #### [facility] [address] [place] [address] Dr. Darrick Cao LYMPH # 1.6 103/ul Normal 1.2-3.8 [facility] Comment on above: Performed By: #### C BC #### [facility] [address] [place] [address] Dr. Darrick Cao Lymphocytes/100 WBC (Bld) 16.0 % Critically low 20.5-60.0 [facility] Comment on above: Performed By: #### C BC #### [facility] [address] [place] [address] Dr. Darrick Cao MANUAL DIFF REQ NO Normal [facility] Comment on above: Performed By: #### C BC #### [facility] [address] [place] [address] Dr. Darrick Cao MCH (RBC) [Entitic mass] 28.2 pg Normal 26.7-34.0 [facility] Comment on above: Performed By: #### C BC #### [facility] [address] [place] [address] Dr. Darrick Cao MCHC (RBC) [Mass/Vol] 32.4 g/dL Normal 29.9-35.2 [facility] Comment on above: Performed By: #### C BC #### [facility] [address] [place] [address] Dr. Darrick Cao MCV (RBC) [Entitic vol] 86.9 fL Normal 81.0-99.0 [facility] Comment on above: Performed By: #### C BC #### [facility] [address] [place] [address] Dr. Darrick Cao MONO # 0.9 103/ul Critically high 0.3-0.8 [facility] Comment on above: Performed By: #### C BC #### [facility] [address] [place] [address] Dr. Darrick Cao Monocytes/100 WBC (Bld) 8.7 % Normal 1.7-12.0 [facility] Comment on above: Performed By: #### C BC #### [facility] [address] [place] [address] Dr. Darrick Cao NEUT # 7.5 103/ul Critically high 1.4-6.5 [facility] Comment on above: Performed By: #### C BC #### [facility] [address] [place] [address] Dr. Darrick Cao Neutrophils/100 WBC (Bld) 73.8 % Normal 43.0-75.0 [facility] Comment on above: Performed By: #### C BC #### [facility] [address] [place] [address] Dr. Darrick Cao Platelet mean volume (Bld) [Entitic vol] 9.3 fL Critically low 9.5-13.5 [facility] Comment on above: Performed By: #### C BC #### [facility] [address] [address] [address] Darrick Cao PLT 345 103/ul Normal 150-450 [facility] Comment on above: Performed By: #### C BC #### [facility] [address] [address] [address] Darrick Cao RBC 4.58 106/ul Normal 4.20-5.40 [facility] Comment on above: Performed By: #### C BC #### [facility] [address] [address] [address] Darrick Cao WBC 10.1 103/ul Normal 4.0-11.0 [facility] Comment on above: Performed By: #### C BC #### [facility] [address] [address] [address] Darrick Cao CRPon 04-22-2022 CRP 5.2 mg/dL Critically high <=1.0 [facility] Comment on above: Performed By: #### B MP, CRP ####[facility] [address] [id number]. Darrick Cao CULTURE BLOODon 04-22-2022 Microscopic examination of blood, culture Culture Observations: NO GROWTH AT 5 DAYS. Normal [facility] Comment on above: Performed By: #### B LDCX2 #### [facility] [address] [id number] Darrick Cao Microscopic examination of blood, culture Culture Observations: NO GROWTH AT 5 DAYS. Normal [facility] Comment on above: Performed By: #### B LDCX1 #### [facility] [address] [address] [address] Darrick Cao Covid-19 PCR (CVDTB)on 04-01 SARS-CoV-2 (COVID-19) RNA ALEKSANDR+probe Ql (Unsp spec) Not detected Normal NOT DETECTED [facility] Comment on above: Result Comment: When diagnostic [...] for this test is supported by the [place] of [employer] and Human Service's declaration that [...] used). Performed By: #### P OCGLUC #### [facility] [address] [place] [address] Dr. Darrick Cao LACTATE/LACTIC ACIDon 2021 Lactate [Moles/Vol] 1.3 mmol/L Normal 0.4-1.9 [facility] Comment on above: Performed By: #### P OCGLUC #### [facility] [address] [place] [address] Dr. Darrick Cao POINT OF CARE GLUCOSEon 04-01 Glucose [Mass/Vol] 96 mg/dL Normal 74-106 [facility] Comment on above: Performed By: #### P OCGLUC #### [facility] [address] [place] [address] Dr. Darrick Cao PROF CHEM 8 (BAS METB)on Anion gap [Moles/Vol] 12.3 mmol/L Normal [facility] Comment on above: Performed By: #### B MP, CRP ####[facility] [address] [address]Dr. Darrick Cao Calcium [Mass/Vol] 9.2 mg/dL Normal 8.5-10.1 [facility] Comment on above: Performed By: #### B MP, CRP ####[facility] [address] [address]. Darrick Cao Chloride [Moles/Vol] 104 mmol/L Normal 98-107 [facility] Comment on above: Performed By: #### B MP, CRP ####[facility] [address] [place], [place] [address]Dr. Darrick Cao CO2 [Moles/Vol] 26.4 mmol/L Normal 21.0-32.0 [facility] Comment on above: Performed By: #### B MP, CRP ####[facility] [address] [place], [place] [address]Dr. Darrick Nash Creatinine [Mass/Vol] 1.19 mg/dL Critically high 0.55-1.02 [facility] Comment on above: Performed By: #### B MP, CRP ####[facility] [address] [place], [place] [address]Dr. Darrick Cao EGFR-AF [place] 56 mL/min/1.73m2 Critically low >=60 [facility] Comment on above: Performed By: #### B MP, CRP ####[facility] [address] [place], [place] [address]Dr. Darrick Cao EGFR-NON AF [place] 46 mL/min/1.73m2 Critically low >=60 [facility] Comment on above: Performed By: #### B MP, CRP ####[facility] [address] [place], [place] [address]Dr. Darrick Cao Glucose [Mass/Vol] 124 mg/dL Critically high 74-106 [facility] Comment on above: Performed By: #### B MP, CRP ####[facility] [address] [place], [place] [address]Dr. Darrick Cao Potassium [Moles/Vol] 4.7 mmol/L Normal 3.5-5.1 [facility] Comment on above: Performed By: #### B MP, CRP ####[facility] [address] [place], [place] [address]Dr. Darrick Cao Sodium [Moles/Vol] 138 mmol/L Normal 136-145 [facility] Comment on above: Performed By: #### B MP, CRP ####[facility] [address] [place], [place] [address]Co. Darrick Cao Urea nitrogen [Mass/Vol] 21.0 mg/dL Critically high 7.0-18.0 [facility] Comment on above: Performed By: #### B MP, CRP ####[facility] [address] [place], [place] [address]Lc. Darrick Cao Urea nitrogen/Creatinine [Mass ratio] 17.6 mg/mg Normal [facility] Comment on above: Performed By: #### B MP, CRP ####[facility] [address] [place], [place] [address]Te. Darrick Cao [facility] SED RATE 64 mm/hr Critically high <=30 [facility] Comment on above: Performed By: #### P OCGLUC #### [facility] [address] [place], [place] [address] ANKLE LT WO [...] by: SHAWNEE KELLY Date: 2022-03-11 10:18 Normal [facility] COVID Quick Testingon 2020 Result Negative [facility] Other Operative Reporton 1 Operative Report MR#: [id number] S [facility] Pt. Name: Nicol Knowles Room #: 0C Discharge Date: Birthdate: 1960 OPERATIVE REPORT DATE OF SURGERY: 12/16/2020 SURGEON: David Lr M.D. PREOPERATIVE DIAGNOSIS: Trigger digits, right long finger and thumb. POSTOPERATIVE DIAGNOSIS: Trigger digits, right long finger and thumb. PROCEDURE: A1 leigha release, right long finger and thumb. CHEF DE PARTIE: Hay Mast M.D. ANESTHESIA: MAC. INDICATION FOR [...] Lr M.D. Date Trans: 12/16/2020 09:13 A/braxton [id number] cc: Waqas Pierce M.D. [address] [place] [id number] Normal [facility] POC GLUCOSE LABon 12-16-2020 Glucose [Mass/Vol] 103 mg/dL High 70-100 [facility] Comment on above: Performed By: #### 8 [id number] #### [facility] [address] [place] [address], [facility] Vital Signs Date Time Vital Sign Value Performing Clinician Facility 06-19-2024 12:54-0400 Body mass index (BMI) [Ratio] 47.9 kg/m2 [facility] 06-19-2024 11:16-0400 Body height 170.[address] [facility] 06-19-2024 11:16-0400 Body weight [address] [facility] 06-16-2024 09:58-0400 Body height 170.[address] [facility] 06-16-2024 09:58-0400 Body mass index (BMI) [Ratio] 44.9 kg/m2 [facility] 06-16-2024 09:58-0400 Body weight 130.[address] [facility] 06-16-2024 09:58-0400 Diastolic blood pressure 75 mm[Hg] [facility] 06-16-2024 09:58-0400 Heart rate 83 /min [facility] 06-16-2024 09:58-0400 Systolic blood pressure 114 mm[Hg] [facility] 05-23-2024 10:46-0400 Body mass index (BMI) [Ratio] 47.9 kg/m2 [facility] 05-23-2024 09:49-0400 Body height 170.[address] [facility] 05-23-2024 09:49-0400 Body weight 127.[address] [facility] 02-21-2024 10:03-0400 Body height 170.18 cm MD Waqas iPerce Work Phone: [facility] 02-21-2024 10:03-0400 Body mass index (BMI) [Ratio] 42.3 kg/m2 MD Waqas Pierce Work Phone: [facility] 02-21-2024 10:03-0400 Body weight 122.49 kg MD Waqas Pierce Work Phone: [facility] 02-21-2024 10:03-0400 Diastolic blood pressure 88 mm[Hg] MD Waqas Pierce Work Phone: [facility] 02-21-2024 10:03-0400 Heart rate 85 /min MD Waqas Pierce Work Phone: [facility] 02-21-2024 10:03-0400 Respiratory rate 18 /min MD Waqas Pierce Work Phone: [facility] 02-21-2024 10:03-0400 SaO2% (BldA) [Mass fraction] 97 % MD Waqas Pierce Work Phone: [facility] 02-21-2024 10:03-0400 Systolic blood pressure 142 mm[Hg] MD Waqas Pierce Work Phone: [facility] 01-15-2024 10:50-0400 Body height 170.[address] [facility] 01-15-2024 10:50-0400 Body mass index (BMI) [Ratio] 47.9 kg/m2 [facility] 01-15-2024 10:50-0400 Body weight 138.[address] [facility] 01-10-2024 09:49-0400 Body mass index (BMI) [Ratio] 47.9 kg/m2 MD Waqas Pierce Work Phone: [facility] 01-10-2024 08:37-0400 Body height 170.18 cm MD Waqas Pierce Work Phone: [facility] 01-10-2024 08:37-0400 Body weight 117.02 kg MD Waqas Pierce Work Phone: [facility] 01-03-2024 10:52-0400 Body height 170.18 cm MD Waqas Pierce Work Phone: [facility] 01-03-2024 10:52-0400 Body mass index (BMI) [Ratio] 39.8 kg/m2 MD Waqas Pierce Work Phone: [facility] 01-03-2024 10:52-0400 Body weight 115.41 kg MD Waqas Pierce Work Phone: [facility] 01-03-2024 10:52-0400 Diastolic blood pressure 89 mm[Hg] MD Waqas Pierce Work Phone: [facility] 01-03-2024 10:52-0400 Heart rate 87 /min MD Waqas Pierce Work Phone: [facility] 01-03-2024 10:52-0400 Respiratory rate 18 /min MD Waqas Pierce Work Phone: [facility] 01-03-2024 10:52-0400 SaO2% (BldA) [Mass fraction] 99 % MD Waqas Pierce Work Phone: [facility] 01-03-2024 10:52-0400 Systolic blood pressure 128 mm[Hg] MD Waqas Pierce Work Phone: [facility] 12-10-2023 11:39-0400 Body mass index (BMI) [Ratio] 47.9 kg/m2 MD Waqas Pierce Work Phone: [facility] 12-10-2023 10:57-0400 Body height 170.18 cm MD Waqas Pierce Work Phone: [facility] 12-10-2023 10:57-0400 Body weight 117.02 kg MD Waqas Pierce Work Phone: [facility] 11-22-2023 10:59-0500 Body height 170.[address] [facility] 11-22-2023 10:59-0500 Body mass index (BMI) [Ratio] 41.1 kg/m2 [facility] 11-22-2023 10:59-0500 Body weight 119.[address] [facility] 11-22-2023 10:59-0500 Diastolic blood pressure 84 mm[Hg] [facility] 11-22-2023 10:59-0500 Heart rate 72 /min [facility] 11-22-2023 10:59-0500 Respiratory rate 18 /min [facility] 11-22-2023 10:59-0500 SaO2% (BldA) [Mass fraction] 99 % [facility] 11-22-2023 10:59-0500 Systolic blood pressure 132 mm[Hg] [facility] 11-21-2023 09:48-0500 Body height 170.[address] [facility] 11-21-2023 09:48-0500 Body mass index (BMI) [Ratio] 40.7 kg/m2 [facility] 11-21-2023 09:48-0500 Body temperature 98.2 [degF] [facility] 11-21-2023 09:48-0500 Body weight 117.[address] [facility] 11-21-2023 09:48-0500 Diastolic blood pressure 82 mm[Hg] [facility] 11-21-2023 09:48-0500 Heart rate 105 /min [facility] 11-21-2023 09:48-0500 Systolic blood pressure 131 mm[Hg] [facility] 11-19-2023 09:52-0500 Body height 170.[address] [facility] 11-19-2023 09:52-0500 Body mass index (BMI) [Ratio] 40.8 kg/m2 [facility] 11-19-2023 09:52-0500 Body weight 118.[address] [facility] 11-01-2023 11:15-0500 Body height 170.18 cm Waqas Pierce Other [facility] 11-01-2023 11:15-0500 Body mass index (BMI) [Ratio] 40.75 kg/m2 Waqas Pierce Other [facility] Other 11-01-2023 11:15-0500 Body weight 118.03 kg Waqas Pierce Other [facility] Other 11-01-2023 11:15-0500 Body weight 118.[address] [facility] 11-01-2023 11:15-0500 Diastolic blood pressure 87 mm[Hg] Waqas Pierce Other [facility] 11-01-2023 11:15-0500 Systolic blood pressure 127 mm[Hg] Waqas Pierce Other [facility] 10-15-2023 10:00-0500 Body height 170.18 cm Grecia Fitt Other [facility] 10-15-2023 10:00-0500 Body mass index (BMI) [Ratio] 40.08 kg/m2 Grecia Fitt Other [facility] Other 10-15-2023 10:00-0500 Body weight 116.08 kg Grecia Fitt Other [facility] Other 10-15-2023 10:00-0500 Body weight 116.[address] [facility] 09-18-2023 11:00-0500 Body height 170.18 cm Rolando Jasmin Other [facility] 09-18-2023 11:00-0500 Body mass index (BMI) [Ratio] 40.45 kg/m2 Rolandotimothy Reyesdiff Other [facility] Other 09-18-2023 11:00-0500 Body weight 117.16 kg Rolando Castellanos Other [facility] 09-18-2023 11:00-0500 Diastolic blood pressure 80 mm[Hg] Rolando Castellanos Other [facility] 09-18-2023 11:00-0500 Respiratory rate 18 /min Rolando Jasmin Other [facility] [employer] Other 09-18-2023 11:00-0500 SaO2% (BldA) [Mass fraction] 98 % Rolando Castellanos Other [facility] Other 09-18-2023 11:00-0500 Systolic blood pressure 115 mm[Hg] Rolando Castellanos Other [facility] 09-17-2023 10:45-0500 Body height 170.18 cm Grecia Fitt Other [facility] 09-17-2023 10:45-0500 Body mass index (BMI) [Ratio] 40.65 kg/m2 Grecia Fitt Other [facility] Other 09-17-2023 10:45-0500 Body weight 117.75 kg Grecia Carrera Other [facility] 09-03-2023 12:45-0500 Diastolic blood pressure 60 mm[Hg] MD Waqas Pierce Work Phone: [facility] 09-03-2023 12:45-0500 Heart rate 70 /min MD Waqas Pierce Work Phone: [facility] 09-03-2023 12:45-0500 Inhaled oxygen flow rate 1 L/min MD Waqas Pierce Work Phone: [facility] 09-03-2023 12:45-0500 Respiratory rate 16 /min MD Waqas Pierce Work Phone: [facility] 09-03-2023 12:45-0500 SaO2% (BldA) [Mass fraction] 97 % MD Waqas Pierce Work Phone: [facility] 09-03-2023 12:45-0500 Systolic blood pressure 132 mm[Hg] MD Waqas Pierce Work Phone: [facility] 09-03-2023 10:21-0500 Body temperature 98.4 [degF] MD Waqas Pierce Work Phone: [facility] 09-03-2023 07:14-0500 Body height 172.72 cm MD Waqas Pierce Work Phone: [facility] 09-03-2023 07:14-0500 Body mass index (BMI) [Ratio] 39.5 kg/m2 MD Waqas Pierce Work Phone: [facility] 09-03-2023 07:14-0500 Body weight 118 kg MD Waqas Pierce Work Phone: [facility] 08-21-2023 14:30-0500 Body height 170.18 cm Waqas Pierce Other [facility] Other 08-21-2023 14:30-0500 Body mass index (BMI) [Ratio] 39.46 kg/m2 Waqas Pierce Other [facility] Other 08-21-2023 14:30-0500 Body weight 114.31 kg Waqas Pierce Other [facility] Other 08-21-2023 14:30-0500 Diastolic blood pressure 84 mm[Hg] Waqas Pierce Other [facility] Other 08-21-2023 14:30-0500 Systolic blood pressure 138 mm[Hg] Waqas Pierce Other [facility] Other 08-13-2023 10:45-0500 Body height 170.18 cm Grecia Fitt Other [facility] Other 08-13-2023 10:45-0500 Body mass index (BMI) [Ratio] 41.22 kg/m2 Grecia Fitt Other [facility] Other 08-13-2023 10:45-0500 Body weight 119.39 kg Grecia Fitt Other [facility] Other 07-26-2023 11:30-0400 Body height 170.18 cm Rolandotimothy Hunterff Other [facility] Other 07-26-2023 11:30-0400 Body mass index (BMI) [Ratio] 41.86 kg/m2 Rolando Jasmin Other [facility] Other 07-26-2023 11:30-0400 Body weight 121.25 kg Rolando Jasmin Other [facility] Other 07-26-2023 11:30-0400 Diastolic blood pressure 77 mm[Hg] Rolando Castellanos Other [facility] Other 07-26-2023 11:30-0400 Respiratory rate 18 /min Rolando Castellanos Other [facility] Other 07-26-2023 11:30-0400 SaO2% (BldA) [Mass fraction] 98 % Rolando Castellanos Other [facility] Other 07-26-2023 11:30-0400 Systolic blood pressure 121 mm[Hg] Rolando Reyesdiff Other [facility] Other 07-23-2023 10:45-0400 Body height 170.18 cm Grecia Fitt Other [facility] Other 07-23-2023 10:45-0400 Body mass index (BMI) [Ratio] 41.78 kg/m2 Grecia Fitt Other [facility] Other 07-23-2023 10:45-0400 Body weight 121.02 kg Grecia Fitt Other [facility] Other 06-27-2023 15:15-0400 Body height 170.18 cm David Clune II Other [facility] Other 06-27-2023 15:15-0400 Body mass index (BMI) [Ratio] 41.97 kg/m2 David Clune II Other [facility] Other 06-27-2023 15:15-0400 Body weight 121.56 kg David Clune II Other [facility] Other 06-18-2023 11:30-0400 Body height 170.18 cm Grecia Fitt Other [facility] Other 06-18-2023 11:30-0400 Body mass index (BMI) [Ratio] 42.52 kg/m2 Grecia Fitt Other [facility] Other 06-18-2023 11:30-0400 Body weight 123.15 kg Grecia Fitt Other [facility] Other 06-14-2023 10:00-0400 Body height 170.18 cm Rolandotimothy Castellanos Other [facility] Other 06-14-2023 10:00-0400 Body mass index (BMI) [Ratio] 42.89 kg/m2 Rolando Castellanos Other [facility] Other 06-14-2023 10:00-0400 Body weight 124.24 kg Rolando Castellanos Other [facility] Other 06-14-2023 10:00-0400 Diastolic blood pressure 87 mm[Hg] Rolando Castellanos Other [facility] Other 06-14-2023 10:00-0400 Respiratory rate 18 /min Rolando Castellanos Other [facility] Other 06-14-2023 10:00-0400 SaO2% (BldA) [Mass fraction] 100 % Rolando Castellanos Other [facility] Other 06-14-2023 10:00-0400 Systolic blood pressure 124 mm[Hg] Rolando Castellanos Other [facility] Other 06-11-2023 12:45-0400 Body height 170.18 cm Waqas Pierce Other [facility] Other 06-11-2023 12:45-0400 Body mass index (BMI) [Ratio] 42.41 kg/m2 Waqas Pierce Other [facility] Other 06-11-2023 12:45-0400 Body weight 122.83 kg Waqas Pierce Other [facility] Other 06-11-2023 12:45-0400 Diastolic blood pressure 76 mm[Hg] Waqas Pierce Other [facility] Other 06-11-2023 12:45-0400 Respiratory rate 12 /min Waqas Pierce Other [facility] Other 06-11-2023 12:45-0400 Systolic blood pressure 124 mm[Hg] Waqas Pierce Other [facility] Other 05-14-2023 10:00-0400 Body height 170.18 cm Grecia Fitt Other [facility] Other 05-14-2023 10:00-0400 Body mass index (BMI) [Ratio] 43.05 kg/m2 Grecia Fitt Other [facility] Other 05-14-2023 10:00-0400 Body weight 124.69 kg Grecia Fitt Other [facility] Other 04-16-2023 10:00-0400 Body height 170.18 cm Grecia Fitt Other [facility] Other 04-16-2023 10:00-0400 Body mass index (BMI) [Ratio] 43.94 kg/m2 Grecia Fitt Other [facility] Other 04-16-2023 10:00-0400 Body weight 127.28 kg Grecia Fitt Other [facility] Other 01-11-2023 11:00-0400 Body height 170.18 cm Grecia Fitt Other [facility] Other 01-11-2023 11:00-0400 Body mass index (BMI) [Ratio] 47.37 kg/m2 Grecia Fitt Other [facility] Other 01-11-2023 11:00-0400 Body weight 137.21 kg Grecia Fitt Other [facility] Other 11-16-2022 11:45-0500 Body height 170.18 cm Rolando Jasmin Other [facility] Other 11-16-2022 11:45-0500 Body mass index (BMI) [Ratio] 47 kg/m2 Rolandotimothy Castellanos Other [facility] Other 11-16-2022 11:45-0500 Body weight 136.13 kg Rolando Castellanos Other [facility] Other 11-16-2022 11:45-0500 Diastolic blood pressure 85 mm[Hg] Rolando Castellanos Other [facility] Other 11-16-2022 11:45-0500 Respiratory rate 18 /min Rolando Castellanos Other [facility] Other 11-16-2022 11:45-0500 SaO2% (BldA) [Mass fraction] 97 % Rolando Castellanos Other [facility] Other 11-16-2022 11:45-0500 Systolic blood pressure 114 mm[Hg] Rolando Castellanos Other [facility] Other 11-14-2022 09:15-0500 Body height 170.18 cm Grecia Carrera Other [facility] Other 11-08-2022 14:57-0500 Blood Pressure Location [email or web address] [place] 11-08-2022 14:57-0500 Diastolic blood pressure 74 mm[Hg] [email or web address] [place] 11-08-2022 14:57-0500 Heart rate 80 /min [employer] [facility] [place] 11-08-2022 14:57-0500 Respiratory rate 16 /min [employer] [facility] [place] 11-08-2022 14:57-0500 Systolic blood pressure 118 mm[Hg] [employer] [facility] 10-23-2022 10:30-0500 Body height 170.18 cm Waqas Pierce Other [facility] Other 10-23-2022 10:30-0500 Body mass index (BMI) [Ratio] 46.04 kg/m2 Waqas Pierce Other [facility] Other 10-23-2022 10:30-0500 Body weight 133.36 kg Waqas Pierce Other [facility] Other 10-23-2022 10:30-0500 Diastolic blood pressure 88 mm[Hg] Waqas Pierce Other [facility] Other 10-23-2022 10:30-0500 Systolic blood pressure 148 mm[Hg] Waqas Pierce Other [facility] Other 10-13-2022 10:15-0500 Body height 170.18 cm Rachel Missler Other [facility] Other 10-13-2022 10:15-0500 Body mass index (BMI) [Ratio] 45.89 kg/m2 Rachel Missler Other [facility] Other 10-13-2022 10:15-0500 Body weight 132.9 kg Rachel Missler Other [facility] Other 10-13-2022 10:15-0500 Diastolic blood pressure 89 mm[Hg] Rachel Missler Other [facility] Other 10-13-2022 10:15-0500 Respiratory rate 18 /min Rachel Missler Other [facility] Other 10-13-2022 10:15-0500 SaO2% (BldA) [Mass fraction] 96 % Rachel Missler Other [facility] Other 10-13-2022 10:15-0500 Systolic blood pressure 138 mm[Hg] Rachel Missler Other [facility] Other 09-06-2022 16:00-0500 Body height 170.18 cm David Mcfarland II Other [facility] Other 09-06-2022 16:00-0500 Body mass index (BMI) [Ratio] 45.57 kg/m2 David Rdzle II Other [facility] Other 09-06-2022 16:00-0500 Body weight 132 kg David Rdzle II Other [facility] Other 07-25-2021 18:45-0400 Body height 170.18 cm Mallory Yuen Other [facility] Other 07-25-2021 18:45-0400 Body mass index (BMI) [Ratio] 42.91 kg/m2 Mallory Yuen Other [facility] Other 07-25-2021 18:45-0400 Body temperature 98.6 [degF] Mallory Yuen Other [facility] Other 07-25-2021 18:45-0400 Body weight 124.29 kg Mallory Yuen Other [facility] Other 07-25-2021 18:45-0400 Respiratory rate 18 /min Mallory Yuen Other [facility] Other 07-25-2021 18:45-0400 SaO2% (BldA) [Mass fraction] 96 % Mallory Yuen Other [facility] Other Encounters Encounter Date Encounter Type Care Provider Facility Start: 07-25-2024 End: 07-25-2024 ambulatory [facility] Start: 06-19-2024 End: 06-19-2024 ambulatory [facility] Work Phone: Start: 06-19-2024 End: 06-19-2024 Patient encounter procedure [facility] Work Phone: Start: 06-17-2024 Non-patient / Non-visit [facility] Work Phone: Start: 06-16-2024 Patient encounter procedure [facility] Start: 06-16-2024 End: 06-16-2024 ambulatory [facility] Work Phone: Start: 06-16-2024 End: 06-16-2024 Patient encounter procedure [facility] Work Phone: Start: 05-23-2024 End: 05-23-2024 ambulatory [facility] Work Phone: Start: 05-23-2024 End: 05-23-2024 Patient encounter procedure [facility] Work Phone: Start: 02-21-2024 End: 02-21-2024 ambulatory MD Waqas Pierce Work Phone: [facility] Work Phone: Start: 02-21-2024 End: 02-21-2024 Patient encounter procedure MD Waqas Pierce Work Phone: [facility] Work Phone: Start: 01-15-2024 End: 01-15-2024 ambulatory NON STAFF [facility] Work Phone: Start: 01-15-2024 End: 01-15-2024 Patient encounter procedure [facility] Work Phone: Start: 01-11-2024 Non-patient / Non-visit [facility] Work Phone: Start: 01-10-2024 End: 01-10-2024 ambulatory MD Waqas Pierce Work Phone: [facility] Work Phone: Start: 01-10-2024 End: 01-10-2024 Patient encounter procedure MD Waqas Pierce Work Phone: [facility] Work Phone: Start: 01-03-2024 End: 01-03-2024 ambulatory MD Waqas Pierce Work Phone: [facility] Work Phone: Start: 01-03-2024 End: 01-03-2024 Patient encounter procedure MD Waqas Pierce Work Phone: [facility] Work Phone: Start: 12-26-2023 End: 12-26-2023 ambulatory MD Waqas Pierce Work Phone: [facility] Work Phone: Start: 12-26-2023 End: 12-26-2023 Patient encounter procedure MD Waqas Pierce Work Phone: [facility] Work Phone: Start: 12-10-2023 End: 12-10-2023 Patient encounter procedure MD Waqas Pierce Work Phone: [facility] Work Phone: Start: 12-04-2023 Registered Recurring MD Waqas Pierce Work Phone: [facility] Start: 11-28-2023 End: 11-28-2023 Patient encounter procedure MD Waqas Pierce Work Phone: [facility] Work Phone: Start: 11-28-2023 End: 11-28-2023 Patient encounter procedure MD Waqas Pierce Work Phone: [facility] Start: 11-28-2023 End: 11-28-2023 ambulatory David Mcfarland II Facility:[facility] Start: 11-22-2023 End: 11-22-2023 ambulatory NON STAFF [facility] Work Phone: Start: 11-22-2023 End: 11-22-2023 Patient encounter procedure [facility] Work Phone: Start: 11-21-2023 End: 11-21-2023 ambulatory NON STAFF [facility] Work Phone: Start: 11-21-2023 End: 11-21-2023 Patient encounter procedure [facility] Work Phone: Start: 11-20-2023 Registered Recurring MD Waqas Pierce Work Phone: [facility] Start: 11-19-2023 End: 11-19-2023 ambulatory NON STAFF [facility] Work Phone: Start: 11-19-2023 End: 11-19-2023 Patient encounter procedure [facility] Work Phone: Start: 11-01-2023 End: 11-01-2023 ambulatory Waqas Pierce Other [facility] Other Start: 11-01-2023 Office outpatient vi sit 15 minutes Waqas Pierce [facility] Start: 11-01-2023 End: 11-01-2023 Patient encounter procedure [facility]- Start: 10-31-2023 End: 10-31-2023 ambulatory Waqas Pierce Other [facility] Other Start: 10-31-2023 Telephone encounter Waqas Pierce [facility] Start: 10-23-2023 Registered Recurring MD Waqas Pierce Work Phone: [facility] Start: 10-17-2023 Postop follow up vis it related to original px David Mcfarland II [facility] Start: 10-17-2023 End: 10-17-2023 Patient encounter procedure [facility] Start: 10-17-2023 End: 10-17-2023 ambulatory NON STAFF [facility] Work Phone: Start: 10-15-2023 ([facility] RD FU) [facility] F/ U [employer] Supervisor Grecia Carrera [facility] Start: 10-15-2023 Registered Recurring [facility] Work Phone: Start: 10-15-2023 End: 10-15-2023 ambulatory David Rdzle II [facility] Other Start: 10-15-2023 End: 10-15-2023 Patient encounter procedure [facility] Work Phone: Start: 10-02-2023 End: 10-02-2023 ambulatory Rolando Castellanos Other [facility] Other Start: 10-02-2023 Telephone encounter Rolando Vasquez [facility] Start: 09-19-2023 End: 09-19-2023 ambulatory David Rdzle AMAURI Other [facility] Other Start: 09-19-2023 Postop follow up vis it related to original px Carrie Eliazar [facility] Start: 09-19-2023 Telephone encounter David Mcfarland II [facility] Start: 09-19-2023 End: 09-19-2023 Patient encounter procedure [facility] Work Phone: Start: 09-18-2023 End: 09-18-2023 ambulatory Rolando Castellanos Other [facility] Other Start: 09-18-2023 Follow-up encounter Rolando dhillon [facility] Start: 09-18-2023 End: 09-18-2023 Patient encounter procedure [facility] Work Phone: Start: 09-17-2023 ([facility] RD FU) [facility] F/ U [employer] Supervisor Grecia Carrera [facility] Start: 09-17-2023 End: 09-17-2023 ambulatory Grecia Carrera Other [facility] Other Start: 09-17-2023 End: 09-17-2023 Patient encounter procedure [facility] Work Phone: Start: 09-10-2023 End: 09-10-2023 ambulatory David Mcfarland II Other [facility] Other Start: 09-10-2023 Telephone encounter David Rdzle II [facility] Start: 09-03-2023 End: 09-03-2023 Admission to same day surgery center MD Waqas Pierce Work Phone: [facility] [place] Start: 09-03-2023 End: 09-03-2023 ambulatory MD Waqas Pierce Work Phone: [facility] Work Phone: Start: 08-31-2023 (Prolonged) Prolonge d Services David Rdzle II [facility] Start: 08-31-2023 Registered Recurring MD Waqas Pierce Work Phone: [facility] [place] Start: 08-31-2023 End: 08-31-2023 ambulatory NON STAFF [facility] Other Start: 08-30-2023 End: 08-30-2023 ambulatory David Mcfarland II Other [facility] Other Start: 08-30-2023 Office outpatient vi sit 40 minutes David Bartolo II [facility] Start: 08-28-2023 End: 08-28-2023 Patient encounter procedure MD Waqas Pierce Work Phone: [facility] [facility] Work Phone: Start: 08-28-2023 End: 08-28-2023 ambulatory MD Waqas Pierce Work Phone: [facility] Work Phone: Start: 11-28-2023 Registered Recurring [facility] Start: 08-21-2023 End: 08-21-2023 ambulatory Waqas Pierce Other [facility] Other Start: 08-21-2023 Encounter for other preprocedural examination Waqas Pierce [facility] Start: 08-21-2023 Office outpatient vi sit 25 minutes Waqas Pierce [facility] Start: 08-15-2023 End: 08-15-2023 Patient encounter procedure MD Waqas Pierce Work Phone: [facility] Start: 08-15-2023 End: 08-15-2023 ambulatory MD Waqas Pierce Work Phone: [facility] Work Phone: Start: 08-13-2023 Registered Recurring MD Waqas Pierce Work Phone: [facility] Work Phone: Start: 08-13-2023 ([facility] RD FU) [facility] F/ U [employer] Black[employer] Supervisor Grecia Carrera [facility] Start: 08-13-2023 End: 08-13-2023 ambulatory Grecia Carrera Other [facility] Other Start: 08-06-2023 End: 08-06-2023 ambulatory David Mcfarland II Other [facility] Other Start: 08-06-2023 Telephone encounter David Mcfarland II [facility] Start: 08-01-2023 End: 08-01-2023 ambulatory Waqas Pierce Other [facility] Other Start: 08-01-2023 Telephone encounter Waqas Pierce [facility] Start: 07-31-2023 (Televisit) Televisit Waqas Vasquez [facility] Start: 07-31-2023 End: 07-31-2023 ambulatory Waqas Pierce Other [facility] Other Start: 07-26-2023 End: 07-26-2023 ambulatory Rolando Castellanos Other [facility] Other Start: 07-26-2023 Follow-up encounter Rolando Vasquez [facility] Start: 07-26-2023 Telephone encounter David Mcfarland II [facility] Start: 07-23-2023 ([facility] RD FU) [facility] F/ U [employer]d Black[employer] Supervisor Grecia Carrera [facility] Start: 07-23-2023 End: 07-23-2023 ambulatory Grecia Henryt Other [facility] Other Start: 07-09-2023 End: 07-09-2023 ambulatory Rolando Castellanos Other [facility] Other Start: 07-09-2023 Telephone encounter Rolando Vasquez [facility] Start: 06-27-2023 End: 06-27-2023 ambulatory David Bartolo II Other [facility] Other Start: 06-27-2023 Office outpatient vi sit 25 minutes David Clune II 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 Grecia Carrera [facility] Start: 06-18-2023 End: 06-18-2023 ambulatory Grecia Fitt Other [facility] Other Start: 06-14-2023 End: 06-14-2023 ambulatory Rolando Jasmin Other [facility] Other Start: 06-14-2023 Follow-up encounter Rolando Castellanos [facility] Start: 06-11-2023 End: 06-11-2023 ambulatory Waqas Pierce Other [facility] Other Start: 06-11-2023 Encounter for genera l adult medical examination without abnormal findings Waqas Kari [facility] Start: 06-11-2023 Periodic preventive med est patient 40-64yrs Waqas Kari [facility] Start: 06-01-2023 End: 06-01-2023 ambulatory Waqas Pierce Other [facility] Other Start: 06-01-2023 Telephone encounter Waqas Pierce [facility] Start: 05-28-2023 End: 05-28-2023 ambulatory Waqas Pierce Other [facility] Other Start: 05-28-2023 Telephone encounter Waqas Pierce [facility] Start: 05-14-2023 ([facility] RD FU) [facility] F/ U [employer] Black[employer] Supervisor Grecia Carrera [facility] Start: 05-14-2023 End: 05-14-2023 ambulatory Grecia Fitt Other [facility] Other Start: 04-16-2023 ([facility] RD FU) [facility] F/ U [employer] Supervisor Grecia Carlt [facility] Start: 04-16-2023 End: 04-16-2023 ambulatory Grecia Fitt Other [facility] Other Start: 03-28-2023 ambulatory NON STAFF Facility:[facility] Start: 03-21-2023 End: 03-21-2023 ambulatory Waqas Pierce Other [facility] Other Start: 03-21-2023 Telephone encounter Waqas Pierce [facility] Start: 02-22-2023 ambulatory MER MAYBERRY . Facil ity:[facility] Start: 02-13-2023 End: 02-14-2023 [facility] Start: 01-31-2023 End: 01-31-2023 ambulatory Waqas Pierce Other [facility] Other Start: 01-31-2023 Telephone encounter Waqas Pierce [facility] [address] Start: 01-30-2023 End: 01-31-2023 ambulatory AMY KASPER Facility:[facility] Start: 01-19-2023 End: 01-20-[address] ROLANDO CASTELLANOS Facility:[facility] Start: 01-11-2023 ([facility]) [facility] Init ial Provider Grecia Carrera [facility] Start: 01-11-2023 End: 01-11-2023 ambulatory Grecia Carrera Other [facility] Other Start: 01-09-2023 End: 01-10-2023 ambulatory AMY KASPER Facility:[facility] Start: 12-25-2022 End: 12-25-2022 ambulatory Junior Mcgowan Other [facility] Other Start: 12-25-2022 Telephone encounter Junior DARNELL [facility] Start: 12-22-2022 End: 12-23-2022 ambulatory [facility] I[facility] Start: 12-18-2022 End: 12-18-2022 ambulatory Junior Mcgowan Other [facility] Other Start: 12-18-2022 Telephone encounter Junior DARNELL [facility] Start: 12-15-2022 End: 12-15-2022 ambulatory Waqas Pierce Other [facility] Other Start: 12-15-2022 Telephone encounter Waqas THAO [facility] Start: 12-12-2022 Telephone encounter Rolando Castellanos [facility] Start: 12-12-2022 End: 12-13-[address] WAQAS PIERCE [facility] Other Start: 12-06-2022 Telephone encounter Waqas Pierce [facility] Start: 12-06-2022 End: 12-07-2022 ambulatory Efrain CORTES [facility] Other Start: 12-01-2022 End: 12-02-[address] WAQAS PIERCE Facility: Start: 11-20-2022 End: 11-20-2022 ambulatory Rolando Castellanos Other [facility] Other Start: 11-20-2022 Telephone encounter Rolando dhillon [facility] Start: 11-17-2022 Telephone encounter Waqas Pierce [facility] Start: 11-17-2022 End: 11-18-[address] WAQAS PIERCE [facility] Other Start: 11-16-2022 End: 11-16-2022 ambulatory Rolando Castellanos Other [facility] Other Start: 11-16-2022 Follow-up encounter Rolando dhillon [facility] Start: 11-14-2022 End: 11-14-2022 ambulatory Grecia Carrera Other [facility] Other Start: 11-14-2022 IBT FOR OBESITY GROU P 2-10 30M Greciahuan Carrera [facility] Start: 11-13-2022 End: 11-13-2022 ambulatory Waqas Pierce Other [facility] Other Start: 11-13-2022 Telephone encounter Waqas Pierce [facility] Start: 11-08-2022 End: 11-09-2022 ambulatory Efrain CORTES Facility: [facility] Start: 11-08-2022 End: 11-08-2022 Patient encounter procedure Efrain CORTES [facility] Start: 11-06-2022 End: 11-07-[address] WAQAS PIERCE Facility:[facility] Start: 11-05-2022 Encounter for gynecological examination (general) (routine) without abnormal findings DR FRIEDA LOCKE . [facility] Start: 11-03-2022 End: 11-04-[address] WAQAS PIERCE Facility:[facility] Start: 10-30-2022 End: 10-31-[address] WAQAS PIERCE Facility:[facility] Start: 10-25-2022 End: 10-25-2022 ambulatory Waqas Pierce Other [facility] Other Start: 10-25-2022 Telephone encounter Waqas Pierce [facility] Start: 10-24-2022 End: 10-24-2022 ambulatory Rolando Castellanos Other [facility] Other Start: 10-24-2022 Telephone encounter Rolando Vasquez [facility] Start: 10-23-2022 Office outpatient vi sit 15 minutes Waqas Pierce [facility] Start: 10-23-2022 Telephone encounter Waqas Pierce [facility] Start: 10-23-2022 End: 10-24-2022 ambulatory NON STAFF [facility] Work Phone: Start: 10-23-2022 End: 10-23-2022 Departed Referred [facility] [place] Work Phone: Start: 10-20-2022 End: 10-20-2022 ambulatory Waqas Pierce Other [facility] Other Start: 10-20-2022 Telephone encounter Waqas Pierce [facility] Start: 10-17-2022 End: 10-18-[address] WAQSA PIERCE Facility:[facility] Start: 10-13-2022 End: 10-13-2022 ambulatory Rachel Davidsonsadie Other [facility] Other Start: 01-13-2023 Nutrition therapy Rachel Vela [facility] Start: 10-13-2022 Telephone encounter Rachel Vela [facility] Start: 10-13-2022 Registered Recurring [facility] Work Phone: Start: 10-10-2022 End: 10-11-[address] WAQAS PIERCE Facility:[facility] Start: 10-06-2022 End: 10-06-2022 ambulatory Waqas Pierce Other [facility] Other Start: 10-06-2022 Telephone encounter Waqas Pierce [facility] Start: 10-04-2022 (Procedure) Short Junior Mcgowan [facility] Start: 10-04-2022 End: 10-04-2022 ambulatory Junior Mcgowan Other [facility] Other Start: 10-03-2022 End: 10-04-[address] WAQAS PIERCE [facility] Other Start: 10-03-2022 Telephone encounter Junior DARNELL [facility] [place] Start: 09-27-2022 End: 09-27-2022 ambulatory Junior Mcgowan Other [facility] Other Start: 09-27-2022 Telephone encounter Junior DARNELL G [facility] Start: 09-19-2022 End: 09-20-[address] WAQAS PIERCE Facility:[facility] Start: 09-11-2022 End: 09-12-[address] WAQAS PIERCE Facility:[facility] Start: 09-06-2022 End: 09-06-2022 Patient encounter procedure [facility] Start: 09-06-2022 End: 09-06-2022 ambulatory NON STAFF [facility] Work Phone: Start: 09-06-2022 FQHC visit new patient David davalos II [facility] Start: 08-28-2022 End: 08-29-[address] WAQAS PIERCE Facility:[facility] Start: 08-18-2022 Adult health examination Grecia Carrera Other [facility] Other Start: 08-18-2022 Gynecological examination normal Grecia Fitroberto Other [facility] Other Start: 08-18-2022 End: 08-19-[address] [...] Facility:[facility] Start: 04-25-2022 End: 04-25-2022 ambulatory ELICEO Rivera Facility:[facility] Start: 04-25-2022 Encounter for other preprocedural examination AMY KASPER [facility] Start: 04-24-[address] WAQAS PIERCE Facil [...] Pre-procedure evalua tion check Grecia Carrera Other [facility] Other Start: 07-25-2021 Office outpatient vi sit 15 minutes Mallory Yuen [facility] [place] Start: 06-23-2021 Office outpatient vi sit 25 minutes Junior Mcgowan [facility] [place] Start: 06-23-2021 Telephone encounter [facility] Start: 12-16-2020 End: 12-17-2020 ambulatory REFERRED SELF Facility:[facility] Procedures Date Procedure Procedure Detail Performing Clinician [...] Surgery: [id number] Result Comment: PERF ORMED BY: [facility] [place] [id number] PATHOLOGIST INSURANCE SPECIALIST SUAD ARREAGA M.D. Start: 08-28-2023 Urine culture MD Waqas Pierce Work Phone: Start: 08-15-2023 Plain X-ray of right hip MD Waqas Pierce Work Phone: Start: 10-23-2022 Urine culture Start: 09-06-2022 Plain X-ray of right hip Start: 04-24-2022 Excision of Left Tarsal, Open Approach DR WAQAS PIERCE Start: 04-24-2022 Insertion of Tissue Director Mobile into Left Foot Subcutaneous Tissue and Fascia, [...] Activity Detail Author Start: 09-03-2023 Hospital admission [facility] Start: 09-03-2023 End: 09-03-2023 [facility] Start: 09-03-2023 Physical therapy procedure [facility] Start: 08-28-2023 [facility] Start: 08-28-2023 Bacteria identified in Urine by Culture [facility] aPTT in Platelet poo r plasma by Coagulation assay [facility] Bacteria identified in Urine by Culture [facility] CT Chest WO and W contrast IV [facility] XR Chest 2 Views [facility] XR Chest 2 Views [facility] Immunizations Immunization Date Immunization Notes Care Provider Fa cility 09-28-2023 COVID-19 (PFIZER) [id number] 12Y and older MD Waqas Pierce Work Phone: [facility] 09-28-2023 influenza, injectabl e, quadrivalent, preservative free MD Waqas Pierce Work Phone: [facility] 08-31-2022 COVID-19 (Pfizer) Bivalent Booster, Age 12Y+ [facility] 08-31-2022 influenza virus vaccine, unspecified formulation Efrain CORTES [facility] 08-31-2022 influenza, injectabl e, quadrivalent, preservative free MD Waqas Pierce Work Phone: [facility] 08-31-2022 SARS-CoV-2 (COVID-19 ) [id number] Efrain CORTES [facility] [place] 02-24-2022 COVID-19 (Pfizer); Translations: [COVID-19 (Pfizer)] MD Waqas Pierce Work Phone: [facility] 02-24-2022 COVID-19 Comirnaty (Pfizer) Tri-Sucrose 12+ MD Waqas Pierce Work Phone: [facility] 02-24-2022 SARS-CoV-2 mRNA (vynpqgengxr-oiai-zesiy se) vaccine Efrain NILL [facility] 11-20-2021 influenza, injectabl e, quadrivalent, preservative free MD Waqas Pierce Work Phone: [facility] 08-19-2021 COVID-19 (Pfizer) [facility] 08-19-2021 SARS-CoV-2 (COVID-19 ) mRNA BNT-162b2 vax Efrain NILL [facility] 01-19-2021 COVID-19 (Pfizer) [facility] 01-19-2021 SARS-CoV-2 (COVID-19 ) mRNA BNT-162b2 vax Efrain NILL [facility] 12-31-2020 COVID-19 (Pfizer) [facility] 12-31-2020 SARS-CoV-2 (COVID-19 ) mRNA BNT-162b2 vax [employer] [facility] 06-25-2020 influenza virus vaccine, split virus (incl. purified surface antigen) Grecia Carrera Other [facility] Other 06-25-2020 influenza virus vaccine, unspecified formulation [facility] 06-25-2020 influenza, injectabl e, quadrivalent, preservative free MD Waqas Pierce Work Phone: [facility] 06-25-2020 pneumococcal polysaccharide vaccine, 23 valent Grecia Carrera Other [facility] 07-30-2019 influenza, injectabl e, quadrivalent, contains preservative MD Waqas Pierce Work Phone: [facility] 07-12-2018 influenza, injectabl e, quadrivalent, preservative free MD Waqas Pierce Work Phone: [facility] 11-15-2016 influenza, injectabl e, quadrivalent, preservative free MD Waqas Pierce Work Phone: [facility] Payers Date Payer Category Payer Private Health Insurance [id number] 2022 Self-pay [id number] 1960 Unknown [id number] 2.16.840.1.822819.3.579.2.647 1962 Unknown [id number] 2.16.840.1.635670.3.579.2.727 1962 Unknown [id number] 2.16.840.1.129592.3.579.2.727 1962 Unknown [id number] 2.16.840.1.702462.3.579.2.593 1962 Unknown [id number] 2.16.840.1.316102.3.579.2.593 1962 Unknown [id number] 2.16.840.1.552558.3.579.2.593 1962 Unknown [id number] 2.16.840.1.250343.3.579.2.593 1962 Unknown [id number] 2.16.840.1.685309.3.579.2.593 1962 Unknown [id number] 2.16.840.1.528620.3.579.2.593 1962 Unknown [id number] 2.16.840.1.070515.3.579.2.593 1962 Unknown [id number] 2.16.840.1.997360.3.579.2.593 1962 Unknown [id number] 2.16.840.1.957255.3.579.2.593 1962 Unknown [id number] 2.16.840.1.690668.3.579.2.593 1962 Unknown [id number] 2.16.840.1.099494.3.579.2.593 1962 Unknown [id number] 2.16.840.1.003533.3.579.2.593 1962 Unknown [id number] 2.16.840.1.748090.3.579.2.593 1962 Unknown [id number] 2.16.840.1.649877.3.579.2.593 1962 Unknown [id number] 2.16.840.1.923999.3.579.2.593 1962 Unknown [id number] 2.16.840.1.508943.3.579.2.593 1962 Unknown [id number] 2.16.840.1.488346.3.579.2.593 1962 Unknown [id number] 2.16.840.1.997865.3.579.2.593 1962 Unknown [id number] 2.16.840.1.676851.3.579.2.593 1962 Unknown [id number] 2.16.840.1.903433.3.579.2.593 1962 Unknown [id number] 2.16.840.1.355110.3.579.2.593 1962 Unknown [id number] 2.16.840.1.166915.3.579.2.593 1962 Unknown [id number] 2.16.840.1.084549.3.579.2.593 1962 Unknown [id number] 2.16.840.1.269634.3.579.2.593 1962 Unknown [id number] 2.16.840.1.739171.3.579.2.593 1962 Unknown [id number] 2.16.840.1.992321.3.579.2.593 1962 Unknown [id number] 2.16.840.1.208036.3.579.2.593 1962 Unknown [id number] 2.16.840.1.256776.3.579.2.593 1962 Unknown [id number] 2.16.840.1.684526.3.579.2.593 1962 Unknown [id number] 2.16.840.1.222672.3.579.2.593 1962 Unknown [id number] 2.16.840.1.762482.3.579.2.593 1962 Unknown [id number] 2.16.840.1.441398.3.579.2.593 1962 Unknown [id number] 2.16.840.1.430324.3.579.2.593 1962 Unknown [id number] 2.16.840.1.641750.3.579.2.593 1962 Unknown [id number] 2.16.840.1.411542.3.579.2.593 1962 Unknown [id number] 2.16.840.1.681001.3.579.2.593 1962 Unknown [id number] 2.16.840.1.846542.3.579.2.593 1962 Unknown [id number] 2.16.840.1.085140.3.579.2.593 1962 Unknown [id number] 2.16.840.1.344290.3.579.2.593 1962 Unknown [id number] 2.16.840.1.964450.3.579.2.593 1962 Unknown [id number] 2.16.840.1.599197.3.579.2.593 1962 Unknown [id number] 2.16.840.1.966433.3.579.2.593 1962 Unknown [id number] 2.16.840.1.074490.3.579.2.593 1959 Unknown [id number] 2.16. 840.1.588507.19 1959 Unknown [id number] Medicare Medicare [id number] Unknown [id number] 2.16.840.1.987481.3.579.2.531 Unknown [id number] 2.16.840.1.965222.3.579.2.531 Unknown [id number] 2.16.840.1.919584.3.579.2.531 Unknown [id number] 2.16.840.1.525778.3.579.2.531 Worker's Compensation [id number] [facility]er's [facility] [id number] Social History Date Type Detail Facility Unknown if ever smoked [facility] Other Sex Assigned At [facility] Start: 1960 Sex Assigned At Female F [facility] Start: 11-08-2022 End: 01-03-2024 Tobacco smoking status Ex-smoker (finding) [facility] [place] Comment on above: smoked one year, souleymane t 30 years ago Tobacco smoking status Never Gener [facility] [place] Comment on above: smoked one year, souleymane t 30 years ago Medical Equipment Procedure Code Equipment Code Equipment Origin al Text Equipment Identifier Dates Arthroplasty, hip, total, anterior approach Acetabular shell [id number] FDA Start: 09-03-2023 Arthroplasty, hip, total, anterior approach Ceramic femoral head prosthesis ()[id number] FDA Start: 09-03-2023 Arthroplasty, hip, total, anterior approach Coated hip femur prosthesis, modular ()[id number] FDA Start: 09-03-2023 Arthroplasty, hip, total, anterior approach Non-constrained polyethylene acetabular liner ()[id number] FDA Start: 09-03-2023 Start: 02-13-2023 Goals Date Patient Goal Desired Activity /State Functional Status Date Assessment Result Facility 11-08-2022 Functional Status N/A [facility] Clinical Notes 06-23-2021 to 01-03-2024 Note Date [...] given. 1. Prediabetes most recent A1c of 5.3-tsozp-kqnt treatment with long-term healthy lifestyle change, decreased [...] join the gym and start with a strainer mill operator. She should consider pool therapy/ water therapy. She needs to try to keep her trigger foods out of the house. She is to try to find healthier desserts and she tends to like to have 1 after each meal. Lately her cravings for sweets have been decreased. 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 She understands the need for preplanning, following the plate method, having healthy foods around, keeping unhealthy foods out of her house and eating healthy Whole Foods. She does not like to cook or prep. She understands that shopping, chopping and preplanning so that she can eat healthy foods is essential to her recovery. She will continue to work with our supervisor asphalt paving. We could consider Wellbutrin in the future [...] TSH with her PCP. Author Estephania Mao [facility] Authored February 21, 2024 10:30 [...] given. 1. 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 She should consider pool therapy/ water therapy. She needs to try to keep her trigger foods out of the house. She is to try to find healthier desserts and she tends to like to have 1 after each meal. Lately her cravings for sweets have been decreased. 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 She understands the need for preplanning, following the plate method, having healthy foods around, keeping unhealthy foods out of her house and eating healthy Whole Foods. She does not like to cook or prep. She understands that shopping, chopping and preplanning so that she can eat healthy foods is essential to her recovery. She will continue to work with our supervisor asphalt paving. We could consider Wellbutrin in the future [...] lab work and TSH with her PCP. [facility] Work Phone: 1(288) 617-881304-04-2024 Evaluation note* Author Rolando Castellanos [facility] Authored January 03, 2024 11:3 [...] given. 1. 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 She should consider pool therapy/ water therapy. She needs to try to keep her trigger foods out of the house. She is to try to find healthier desserts and she tends to like to have 1 after each meal. Lately her cravings for sweets have been decreased. 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 She understands the need for preplanning, following the plate method, having healthy foods around, keeping unhealthy foods out of her house and eating healthy Whole Foods. She does not like to cook or prep. She understands that shopping, chopping and preplanning so that she can eat healthy foods is essential to her recovery. She will continue to work with our supervisor asphalt paving. We could consider Wellbutrin in the future [...] TSH with her PCP. Author Rolando Castellanos [facility] Authored February 21, 2024 10:49 [...] given. 1. 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 She should consider pool therapy/ water therapy. [...] to continue to work closely with our application counselor. She understands the need for preplanning, following the plate method, having healthy foods around, keeping unhealthy foods out of her house and eating healthy Whole Foods. She does not like to cook or prep. She understands that shopping, chopping and preplanning so that she can eat healthy foods is essential to her recovery. She will continue to work with our supervisor asphalt paving. We could consider Wellbutrin in the future [...] lab work and TSH with her PCP. [facility] Work Phone: 1([phone]) 978-447502-22-2024 Evaluation note* Author Rolando Castellanos [facility] Authored November 22, 2023 12:47pm [...] given. 1. Prediabetes most recent A1c of 5.0-gkxih-jejx treatment with long-term healthy lifestyle change, decreased [...] house. 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 She understands the need for preplanning, following the plate method, having healthy foods around, keeping unhealthy foods out of her house and eating healthy Whole Foods. She does not like to cook or prep. She understands that shopping, chopping and preplanning so that she can eat healthy foods is essential to her recovery. She will continue to work with our supervisor asphalt paving. We could consider Wellbutrin in the future [...] lab work and TSH with her PCP. [facility] Work Phone: 1([phone]) 991-594802-22-2024 Evaluation note* Author Rolando Castellanos [facility] Authored November 22, 2023 12:47pm [...] given. 1. Prediabetes most recent A1c of 5.6-lhska-rcyg treatment with long-term healthy lifestyle change, decreased [...] house. 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 She understands the need for preplanning, following the plate method, having healthy foods around, keeping unhealthy foods out of her house and eating healthy Whole Foods. She does not like to cook or prep. She understands that shopping, chopping and preplanning so that she can eat healthy foods is essential to her recovery. She will continue to work with our supervisor asphalt paving. We could consider Wellbutrin in the future [...] TSH with her PCP. Author Estephania Mao [facility] Authored January 03, 2024 11:1 8am Highest weight in program: 3 06.2. She is down 51.5 lbs. Start weight: 293.0 lbs. She is down 38.3lbs. today with a weight of 254.7 lbs she is down 7.9 lbs. since her last visit on 11/22/2023. Starting Date: 10/13/2022. Wegovy start date 01/17/2023. Deannavy start weight 306.2 pounds, she is down 51.5 lbs. Sample given. 1. Prediabetes most recent A1c of 5.7-omckc-ukfe treatment with long-term healthy lifestyle change, decreased [...] house. 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 She understands the need for preplanning, following the plate method, having healthy foods around, keeping unhealthy foods out of her house and eating healthy Whole Foods. She does not like to cook or prep. She understands that shopping, chopping and preplanning so that she can eat healthy foods is essential to her recovery. She will continue to work with our supervisor asphalt paving. We could consider Wellbutrin in the future [...] lab work and TSH with her PCP. [facility] Work Phone: 1(281) 547-417202-22-2024 Evaluation note* Author Rolando Castellanos [facility] Authored November 22, 2023 12:47pm [...] given. 1. Prediabetes most recent A1c of 5.3-mahxy-nkzr treatment with long-term healthy lifestyle change, decreased [...] house. 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 She understands the need for preplanning, following the plate method, having healthy foods around, keeping unhealthy foods out of her house and eating healthy Whole Foods. She does not like to cook or prep. She understands that shopping, chopping and preplanning so that she can eat healthy foods is essential to her recovery. She will continue to work with our supervisor asphalt paving. We could consider Wellbutrin in the future [...] TSH with her PCP. Author Rolando Castellanos [facility] Authored January 03, 2024 11:3 [...] given. 1. 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 She should consider pool therapy/ water therapy. She needs to try to keep her trigger foods out of the house. She is to try to find healthier desserts and she tends to like to have 1 after each meal. Lately her cravings for sweets have been decreased. 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 She understands the need for preplanning, following the plate method, having healthy foods around, keeping unhealthy foods out of her house and eating healthy Whole Foods. She does not like to cook or prep. She understands that shopping, chopping and preplanning so that she can eat healthy foods is essential to her recovery. She will continue to work with our supervisor asphalt paving. We could consider Wellbutrin in the future [...] lab work and TSH with her PCP. [facility] Work Phone: 1([phone]) 884-741502-01-2024 Evaluation note* Encounter Date Diagnosis Assessment Notes Treatment Notes Treatment Clinical Notes Nov, Hypothyroidism (ICD-10 - E03.9) Pt due for labs - will recheck Nov, Elevated fasting glucose (ICD-10 - R73.01) Continue healthy diet and exercise as able. [facility] Other 01-17-2024 Evaluation note* Encounter Date Diagnosis Assessment Notes Treatment Notes Treatment Clinical Notes Oct, Aftercare following joint replacement surgery (ICD-10 - Z47.1) Oct, Presence of right artificial hip joint (ICD-10 - Z96.641) Oct, Other [facility] on 09/03/2023 Doing well Patient may continue increasing activities as tolerated. Continue taking kscf-tje-zbcqwzm anti-inflammatorie s as needed for assistance with swelling and pain associated with the operative extremity. Follow-up in 6 weeks for repeat examination and repeat x-rays. [facility] Other 01-15-2024 Evaluation note* Encounter Date Diagnosis Assessment Notes Treatment Notes Treatment Clinical Notes Oct, Obesity (ICD-10 - E66.9) Oct, BMI 40.0-44.9, adult (ICD-10 - Z68.41) Oct, Other Summary of Visi t: (A) Discussed including more vegetables (B) Discussed plant proteins (C) Provided recipes [facility] Other 01-02-2024 Evaluation note* Encounter Date Diagnosis Assessment Notes Treatment Notes Treatment Clinical Notes Oct, Hypothyroidism (ICD-10 - E03.9) [facility] Other 12-20-2023 Evaluation note* Encounter Date Diagnosis [...] right artificial hip joint (ICD-10 - Z96.641) [facility] Other 12-19-2023 Evaluation note* Encounter Date Diagnosis [...] GERD (gastroesophageal reflux disease) (ICD-10 - K21.9) 19 Dec, 2023 Metabolic syndrome X (ICD-10 - E88.81) [facility] Other 12-19-2023 Evaluation note* Author Rolandotimothy Reyesdiff [facility] Authored November 22, 2023 11:47am [...] given. 1. Prediabetes most recent A1c of 5.2-zutfm-wsxh treatment with long-term healthy lifestyle change, decreased [...] house. 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 She understands the need for preplanning, following the plate method, having healthy foods around, keeping unhealthy foods out of her house and eating healthy Whole Foods. She does not like to cook or prep. She understands that shopping, chopping and preplanning so that she can eat healthy foods is essential to her recovery. She will continue to work with our supervisor asphalt paving. We could consider Wellbutrin in the future [...] lab work and TSH with her PCP. [facility] Work Phone: [phone]) 677-950512-18-2023 Evaluation note* Encounter Date Diagnosis Assessment Notes Treatment Notes Treatment Clinical Notes Aug, Obesity (ICD-10 - E66.9) Aug, BMI 40.0-44.9, adult (ICD-10 - Z68.41) Aug, Other Summary of Visi t: (A) Discussed including more vegetables (B) Answered general nutrition-related questions (C) DIscussed options for including more water [facility] Other 12-01-2023 Evaluation note* Encounter Date Diagnosis [...] could proceed with surgery safely. The manager beverage was vital for surgery timing and scheduling [...] plans. Prolonged services time spent: 31 minutes [facility] Other 11-30-2023 Evaluation note* Encounter Date Diagnosis [...] therapy arrives. Joints Meeting Checklist - Pharmacy: [facility] med to bed - Approach/Technique: anterior, [place] bed - Implants: Avenir Complete/G7; - Anesthesia: general vs spinal - Blocks: Fascia iliaca - Preop Antibiotics: Ancef and Vanco - TXA: yes-systemic - Positioning/OR Bed: supine on [place] bed - Intraop X-ray: yes - Alejandra: [...] above surgery. OAR[facility] report generated and reviewed. [facility] Other 11-21-2023 Evaluation note* Encounter Date Diagnosis [...] symptoms. Any developing patterns. Stay well hydrated. [facility] Other 11-13-2023 Evaluation note* Encounter Date Diagnosis Assessment Notes Treatment Notes Treatment Clinical Notes Aug, Obesity (ICD-10 - E66.9) Aug, BMI 40.0-44.9, adult (ICD-10 - Z68.41) Aug, Other Summary of Visi t: (A) Continue current regimen (B) Much emotional support provided today (C) Encouraged continued follow up with counselor [facility] Other 10-31-2023 Evaluation note* Encounter Date Diagnosis Assessment Notes Treatment Notes Treatment Clinical Notes Jul, Acute laryngitis (ICD-10 - J04.0) Patient denies bacterial infection symptoms such as fever facial pressure or chills. Patient has not taken a COVID test. Discussed zbrr-zjp-weacdez medications to use along with steroid pills that can improve her discomfort and laryngitis going forward. Advised that the steroids could elevate her blood sugar and to be mindful of that accordingly. 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 (ICD-10 - Z79.899) Jul, Other osteoporosis without current pathological fracture (ICD-10 - M81.8) Jul, Osteoarthritis of right hip (ICD-10 - M16.11) [facility] Other 10-23-2023 Evaluation note* Encounter Date Diagnosis Assessment Notes Treatment Notes Treatment Clinical Notes Jul, Obesity (ICD-10 - E66.9) Jul, BMI 40.0-44.9, adult (ICD-10 - Z68.41) Jul, Other Summary of Visi t: (A) Continue current regimen (B) Discussed ways to include more water (C) Discussed ways to include more vegetables [facility] Other 09-27-2023 Evaluation note* Encounter Date Diagnosis Assessment Notes [...] the patient works on weight loss management. [facility] Other 09-18-2023 Evaluation note* Encounter Date Diagnosis [...] meals available that fit the plate method [facility] Other 09-14-2023 Evaluation note* Encounter Date Diagnosis Assessment Notes Treatment Notes Treatment Clinical Notes Jun, Prediabetes (ICD-10 - R73.09) Jun, BMI 40.0-44.9, adult (ICD-10 - Z68.41) 14 Jun, 2023 Hypothyroidism (ICD-10 - E03.9) Jun, Hypertension (ICD-10 - I10) 14 Jun, 2023 [...] Jun, Metabolic syndrome X (ICD-10 - E88.81) [facility] Other 09-11-2023 Evaluation note* Encounter Date Diagnosis [...] E55.9) discussed supplementation. will check D level. [facility] Other 08-28-2023 Evaluation note* Encounter Date Diagnosis Assessment Notes Treatment Notes Treatment Clinical Notes May, Hypothyroidism (ICD-10 - E03.9) [facility] Other 08-14-2023 Evaluation note* Encounter Date Diagnosis Assessment Notes Treatment Notes Treatment Clinical Notes May, Obesity (ICD-10 - E66.9) May, BMI 40.0-44.9, adult (ICD-10 - Z68.41) May, Other Summary of Visi t: (A) Discussed cooking various foods (B) Find control in indulgences (C) Reviewed the plate method [facility] Other 07-17-2023 Evaluation note* Encounter Date Diagnosis Assessment Notes Treatment Notes Treatment Clinical Notes Mar, Obesity (ICD-10 - E66.9) Mar, BMI 40.0-44.9, adult (ICD-10 - Z68.41) Mar, Other Summary of Visi t: (A) Discussed cooking various foods (B) Find control in indulgences (C) emphasize self-care [facility] Other 05-17-2023 NotePROCEDURE: XR FOOT LT MIN [...] Electronically authenticated by: ARIELA SCHWAB Date: 2023-02-14 06:48[facility]04-13-2023 Evaluation note* Encounter Date Diagnosis Assessment Notes [...] 2. Increase veggies, follow the plate method [facility] Other 03-14-2023 Evaluation note* Encounter Date Diagnosis Assessment Notes Treatment Notes Treatment Clinical Notes Nov, Abnormal laboratory test result (ICD-10 - R89.9) [facility] Other 03-08-2023 NoteOPERATIVE NOTE OPERATION DATE: 12/06/2022 [...] be in 10 years. CC: Waqas Pierce M.D.[facility]02-16-2023 Evaluation note* Encounter Date Diagnosis Assessment Notes [...] - M16.10) Nov, Hypertension (ICD-10 - I10) [facility] Other 02-14-2023 Evaluation note* Encounter Date Diagnosis [...] patient set personal goal using given handout. [facility] Other 02-08-2023 NoteChief Complaint consultation for colonoscopy [...] Years., 11/08/2022 Family History (more content not included)...[facility]:Result Comment: Electronically Signed By: SOPHIA PINEDA, Efrain Layne\Date and Time Signed: 11/08/22 15:29 [id number] Evaluation note* Encounter Date Diagnosis Assessment Notes [...] - G47.33) presently compliant with machine, etc [facility] Other 01-13-2023 Evaluation note* Encounter Date Diagnosis [...] Patient is interested in meeting with our drain technician, telephone encounter started to connect with her [...] the week. Encouraged to take advantage of drain technician available at [facility] that can help work around limitations. She is open to meeting with our drain technician for guidance on exercises she can complete with her severe limitations from her foot, hip and back. Telephone encounter started. Oct, Plantar fasciitis (ICD-10 - M72.2) Oct, Arthritis of hip (ICD-10 - M16.10) Oct, Impaired fasting glucose (ICD-10 - R73.01) [facility] Other 12-07-2022 Evaluation note* Encounter Date Diagnosis [...] while she works on her weight loss. [facility] Other 11-18-2022 NotePROCEDURE: XR HIP RT 2 3V WO PELVIS COMPARISON: None. HISTORY: Pain in right hip joint FINDINGS: BONES:No acute fracture or dislocation. Shallow right acetabulum. Moderate to severe osteoarthropathy with joint space narrowing and marginal osteophyte formation SOFT TISSUES:Negative. No visible soft tissue swelling. EFFUSION:None visible. OTHER: Negative. IMPRESSION: Moderate to severe osteoarthritis with shallow acetabulum Electronically authenticated by: SHAWNEE KELLY Date: 2022-08-18 15:54[facility]11-18-2022 NotePROCEDURE: XR FOOT LT MIN 3 VIEWS [...] Electronically authenticated by: SHAWNEE KELLY Date: 2022-08-18 15:42[facility]09-16-2022 NotePROCEDURE: XR FOOT LT MIN 3 VIEWS, [...] Electronically authenticated by: SHAWNEE KELLY Date: 2022-06-16 16:24[facility]09-16-2022 NotePROCEDURE: XR FOOT LT MIN 3 VIEWS, [...] Electronically authenticated by: SHAWNEE KELLY Date: 2022-06-16 16:24[facility]08-11-2022 NotePROCEDURE: XR FOOT LT MIN 3 VIEWS COMPARISON: 04/24/2022 HISTORY: Pain in left foot FINDINGS: BONES:Stable postsurgical changes with subtalar fusion, medial midfoot hindfoot fusion and spacer at the first tarsometatarsal joint. No mechanical failure. Severe degenerative changes. SOFT TISSUES:Extensive soft tissue swelling.Dorsal woundvac EFFUSION:None visible. OTHER: Negative. IMPRESSION: Stable degenerative and post surgical changes Electronically authenticated by: SHAWNEE KELLY Date: 2022-05-11 17:16[facility]07-25-2022 NotePROCEDURE: XR FOOT LT MIN 3 VIEWS [...] Electronically authenticated by: ARIELA SCHWAB Date: 2022-04-24 14:11[facility]07-25-2022 NotePROCEDURE: XR FOOT LT 2V HISTORY: Pain [...] Electronically authenticated by: ARIELA SCHWAB Date: 2022-04-24 11:54[facility]07-23-2022 NotePROCEDURE: XR FOOT LT MIN 3 VIEWS [...] Electronically authenticated by: ARIELA SCHWAB Date: 2022-04-22 20:52[facility]07-15-2022 NotePROCEDURE: XR FOOT LT MIN 3 VIEWS [...] Electronically authenticated by: SHAWNEE KELLY Date: 2022-04-14 17:03[facility]10-25-2021 Evaluation note* Encounter Date Diagnosis Assessment Notes [...] Patient care instructions given in writting by [facility] document. [facility] Other 09-23-2021 Evaluation note* Encounter Date Diagnosis [...] note writ ten by Safia Calderon CMA, Making Department Preparer. Edited and approved by Dr. Junior Mcgowan MD. [facility] Other Evaluation + Plan note No data available for this section General Surgery [facility] Evaluation noteNo [facility] Other Evaluation noteNo assessment information available [facility] Work Phone: Evaluation note* Diagnosis Onset Date Resolution Status Change in voice acute Essential (primary) hypertension acute Family history of von Willebrand disease acute Hyperlipidemia acute Hypothyroidism acute [facility] Work Phone: Evaluation note* Diagnosis Onset Date Resolution Status Change in voice acute Essential (primary) hypertension acute Family history of von Willebrand disease acute Hyperlipidemia acute Hypothyroidism acute Medicare annual wellness visit, subsequent acute [facility] Work Phone: Hisntkz general Narrative - Reported* Type Description Date Medical History DDD (degenerative disc disease), lumbar Surgical History hip replacement Surgical History tonsillectomy Surgical History carpal tunnel release bilateral Hospitalization History see above [facility] Other His[facility] general Narrative - Reported* Type Description Date Medical History DDD (degenerative disc disease), lumbar Medical History spinal stenosis Surgical History hip replacement Surgical History tonsillectomy Surgical History carpal tunnel release bilateral Surgical History vein ablasion Hospitalization History see above [facility] Other Hiseq[facility] general Narrative - Reported* Type Description Date Medical History DDD (degenerative disc disease), lumbar Medical History spinal stenosis Surgical History hip replacement Surgical History tonsillectomy Surgical History carpal tunnel release bilateral Surgical History vein ablasion Surgical History skin graft left foot Hospitalization History see above [facility] Other Hisgevh general Narrative - Reported* Type Description Date [...] x3 202 2 Hospitalization History see above [facility] Other Hiskkgy general Narrative - Reported* Type Description Date [...] HIp replacement 09/03/23 Hospitalization History see above [facility] Other Hospital Discharge instructions No data available for this section General Surgery [facility] Discharge instructions Additional Instructions Joint Replacement Discharge Instructions Your safety during your recovery process is important to us. Please seek immediate emergency care if you have sudden chest pain or shortness of breath. Additionally, please call our office at [phone] should any of the following occur: wound [...] to walk without your walker and your foster care social worker until the therapist checks you the following [...] and/or laxatives as directed. You may take eikx-ojh-iwimsyv Benadryl if itching occurs without a rash or hives. Icing and elevation will help relieve pain as well, do not underestimate the power of ice and elevation. We do recommend that you stop taking narcotic pain medications by 4-6 weeks after surgery and if necessary, continue to use anti-inflammatory medications such as Mobic (meloxicam), Celebrex (celecoxib), or an aufq-hat-aoupnij medication (Aleve, Motrin, Ibuprofen, etc). Driving an [...] feel free to call our office at [phone]. You are a priority of ours and we will not be upset with you if you call. We would much rather you call to confirm aspects of your recovery process as opposed to possibly hindering your recovery with inappropriate care. We are committed to providing you with the best care possible. David Mcfarland II, MD Updated 12/15/2022[facility] Work Phone: Progress note No data available for this section General Surgery [place] Reason for referral (narrative)* Reason Appt: Diagnosis 1 Depression (F32.9) Referral Organization [facility] Referring Provider First Name Rolando Referring Provider Last Name Jasmin Referring Provider Specialty Internal Me dicine Referred Organization [facility] [place] Referred Address [address] [place], [place],[address] Referred Provider Specialty Miscellstanfordou s Referral Priority Routine General Notes Anna Jose 2022 01:07:39 PM >Please contact patient to schedule. [facility] Other Summary Purpose Family History No Family History Records Found Relationship Condition Age at Onset Recorded Date/T ryena father Diabetes mellitus Unknown Congestive heart failure [...] Unknown brother Myocardial infarction Unknown Advance Directives No Advanced Directives Records Found Advance Directive Response Recorded Date/ Time Advance [...] RD WM f/u Sick-Did not test for [id number] Reason for Visit Sinusitis, acute max illary BMI 40.0-44.9, adult Fatty liver Hyperlipidemia Hypertension Pre-diabetes Aftercare following joint replacement Chest congestion Cough Chief Complaint Rd Wm F/U Obesity z47.[address] WM f/u Sinus infection WMN F/UP Z47.1 - Aftercare following joint replacement surg [address] WM f/u Sick-Did not test for [id number] Reason for Visit Sinusitis, acute max illary BMI 40.0-44.9, adult Fatty liver Hyperlipidemia Hypertension Pre-diabetes Aftercare following joint replacement Bronchitis Chest congestion Cough Chief Complaint Rd Wm F/U Obesity z47.[address] WM f/u Sinus infection WMN F/UP Z47.1 - Aftercare following joint replacement surg [address] WM f/u Sick-Did not test for [id number] RD WM f/u Reason for Visit Sinusitis, acute max illary BMI 40.0-44.9, adult Fatty liver Hyperlipidemia Hypertension Pre-diabetes Aftercare following joint replacement Bronchitis Chest congestion Cough BMI 40.0-44.9, adult Fatty liver Hyperlipidemia Pre-diabetes Chief Complaint z47.[address] WM f/u Sinus infection WMN F/UP Z47.1 - Aftercare following joint replacement surg [address] WM f/u Sick-Did not test for [id number] RD WM f/u Habit forming Reason for Visit Sinusitis, acute max illary BMI 40.0-44.9, adult Fatty liver Hyperlipidemia Hypertension Pre-diabetes Aftercare following joint replacement Bronchitis Chest congestion Cough BMI 40.0-44.9, adult Fatty liver Hyperlipidemia Pre-diabetes Chief Complaint Z47.1 - Aftercare fo [facility] joint replacement surg [address] WM f/u Sick-Did not test for [id number] RD WM f/u Habit forming Reason for Visit Aftercare following joint replacement Bronchitis Chest congestion Cough BMI 40.0-44.9, adult Fatty liver Hyperlipidemia Pre-diabetes Chief Complaint RD WM f/u Sick-Did not test for [id number] RD WM f/u Habit forming Reason for [...] and content) DATE CREATED AUTHOR 04/29/2021 [facility] DATE CREATED AUTHOR AUTHOR'S ORGANIZ ATION 12/20/2022 [facility] K[facility] DATE CREATED AUTHOR AUTHOR'S ORGANIZ ATION 03/09/2023 [facility] DATE CREATED AUTHOR AUTHOR'S ORGANIZ ATION 03/03/2024 [facility] DATE CREATED AUTHOR AUTHOR'S ORGANIZ ATION 07/27/2024 [facility] REASON FOR VISIT (unrecogniz ed section [...] Heatherprescription refillInitial WMNurine cultureBladder Infection/ Possible HerniaDC [facility] Labsmessage fax lab requestre-certR INTRA ARTICULAR HIP JOINT [...] End: December 26, 2023 Carrie Bhakta APRN WELDING SETTER-C Attending Provider Act pradeep Start: December 26, [...] Inactive Member Role Status Dates Grecia Pham [facility] Attending Provider Active Start: October 15, [...] Inactive Member Role Status Dates Grecia Pham [facility] Attending Provider Active Start: September 17, [...] BE BASED ON THE PRIMARY CLINICAL RECORDS. [employer] provides no warranty or guarantee of the accuracy or completeness of information in this document.
[2024-08-01 08:10] VITALS: BP 147/90; PULSE 89; TEMP 35.6; O2SAT 98
[2024-08-01] MEDS: diphenhydrAMINE HCL 25 MG, HYDROCORTISONE SODIUM SUCC/PF 100 MG in 0.9 % SODIUM CHLORID... 301.5 MG IV (08:30)
[2024-08-01] MEDS: IRON DEXTRAN COMPLEX 100 MG/2 ML VIAL 25 MG IVP (09:10)
[2024-08-01] MEDS: IRON DEXTRAN COMPLEX IV (10:32)
[2024-08-01] MEDS: SODIUM CHLORIDE 0.9% IV (10:32)
== END 2024-08-30 23:59 | disposition home or self-care (01) ==
LOC: HEMC 07:46
PROVIDERS: PCP Family Medicine; Visit Provider Internal Medicine Hematology & Oncology
DX: D50.9 Iron deficiency anemia, unspecified (principal); K90.9 Intestinal malabsorption, unspecified; D64.9 Anemia, unspecified
CPT/HCPCS: 96365; 96366; 96367; 96376; J1200; J1720; J1750

== ENCOUNTER 2024-08-18 13:20 | Outpatient (OUT) | payer MEDICARE, SELFPAY ==
--- OUTSIDE RECORDS SUMMARY | 2024-08-18 13:43 | XMS_ITS | CCD ---
Author Organization [facility] CliniSyor Care Team Providers Care Jr. Java Developer Name Role Phone SELF, REFERRED Referring Unavailable DAVID LR Admitting Unavailable DAVID LR Attending Unavailable WAQAS PIERCE Primary Care Unavailable DAVID LR Surgeon Unavailable UT Procedure Practitioner Unavailab JUDSON Martinez Surgeon Unavailable UT Procedure Practitioner Unavailab Junior Peterson Unavailable Mallory Yuen Unavailable NON STAFF Primary Care Provider UnavailMD David Merritt II Attending Provider David Mcfarland II Unavailable [phone] MD Waqas Pierce Primary Care Provider MD [...] Unavailable DIEGO WHITLEY Consulting Unavailable MARIA EUGENIA HUTOTN Consulting Unavailable KARI, DR WAQAS Mendez Primary Care Unavailable JASMIN, DR MARSHALL Attending Unavailable JASMIN, DR MARSHALL Admitting Unavailable JASMIN, DR MARSHALL Consulting Unavailable KARI, DR WAQAS Mendez Primary Care Unavailable AMY KASPER Attending Unavailable POPLAR BLUFF, DR SHAWNEE James Consulting Unavailable AMY KASPER [...] Admitting Unavailable HIGHLANDER, AMY Iverson Consulting Unavailable PIRECE, DR WAQAS Mendez Primary Care Unavailable HIGHLANDER, [...] Unavailable ELICEO HELTON Admitting Unavailable PIERCE, DR WAQSA Mendez Primary Care Unavailable ELICEO HELTON Attending [...] Care Unavailable HIGHLANDER, AMY Iverson Attending Unavailable HIGHLUDAY, AMY Iverson [...] Care Unavailable HIGHLANDER, PETER Kishor Admitting Unavailable MD David Mcfarland II Attending [...] Provider MD David Mcfarland II Attending Provider Pierce, MD Waqas E Primary Care Provider MD David Mcfarland II Attending Provider NON STAFF Primary Care Provider MD Marcin Zamorano Attending Provider NON STAFF Primary Care Unavailable Marcin Grace Attending Unavailab Marcin Ramos Admitting Unavailab le [place] II, David Gordillo Admitting Unavailabl e Bart[place] II, David Gordillo Attending Unavailabl e Kari Waqas E Primary Care Unavailable NON STAFF Primary Care Unavailable Bartolo II, David Gordillo Admitting Unavailabl e [place] II, David Gordillo Attending Unavailabl e NON STAFF Primary Care Unavailable [place] AMAURI, David Gordillo Attending Unavailabl e [place] II, David Gordillo Admitting Unavailabl e Bartolo II, David Gordillo Admitting Unavailabl e [place] II, David Gordillo Attending Unavailabl e Waqas Pierce E Primary Care Unavailable NON STAFF Primary Care Unavailable [place] AMAURI, David Gordillo Admitting Unavailabl e [place] II, David Gordillo Attending Unavailabl e NON STAFF Primary Care Unavailable [place] AMAURI, David Gordillo Attending Unavailabl e [place] II, David Gordillo Admitting Unavailabl e NON STAFF Primary Care Unavailable [place] II, David Gordillo Attending Unavailabl e [place] II, David Gordillo Admitting Unavailabl e ANITA TAFOYA Attending Unavailable Allergies Allergy Classification Reported Allergen(s) Allergy Type Date of Onset Reaction(s) Facility metFORMIN (1 source) metFORMIN; Translations: [METFORMIN] Drug Allergy 12-17-19 [facility] Repository Penicillins (antibiotic) (1 source) Penicillin Drug Allergy 03-11-20 18 [facility] Serotonin (1 source) Serotonin; Translations: [SEROTONIN] Drug Allergy 12-17-19 21 [facility] (20 sources) Penicillin G Drug Allergy 11-01-19 24 [facility] (20 sources) CYMBOLTA Propensity to adverse reactions temporary blindness and couldnt feel herself breathing [facility] Other (20 sources) DULoxetine; Translations: [duloxetine] Drug Allergy 09-05-20 22 Impairment level of vision (disorder) [facility] [place] (20 sources) metFORMIN; Translations: [metformin] Drug Allergy 09-05-20 22 Abdominal mass (finding) [facility] [place] (20 sources) Penicillin; Translations: [penicillin] Drug Allergy 08-08-20 13 Eruption of skin (disorder) [facility] [place] (1 source) DULoxetine Drug Allergy [facility] (1 source) metFORMIN Drug Allergy [facility] (18 sources) Penicillins; Translations: [PENICILLINS] Drug allergy (disorder) 10-01-19 00 Rash [facility] (20 sources) Rx Essentials Antidepressant *HEMATOPOIETIC AGENTS Propensity to adverse reactions Comment:[facility] Other (3 sources) Allergies Reconciled Propensity to adverse reactions 08-17-20 21 Unknown [facility] Other (20 sources) Substance with penicillin structure and antibacterial mechanism of action (substance) Drug allergy Unknown [facility] Other (20 sources) Substance with serotonin re-uptake inhibitor mechanism of action (substance) Drug allergy 09-04-20 12 SEROTONIN HCL [facility] Other (3 sources) patient allergy list reviewed by nurse or physicia Propensity to adverse reactions 12-09-19 14 Comment:Done [facility] Other (16 sources) Serotonin Drug Allergy 08-28-20 23 temporary blindness, couldn't feel self breath [facility] (13 sources) Rx Essentials Antidepressant * Allergy to substance 11-01-19 24 Comment:[facility] (1 source) DULoxetine Drug Allergy 08-28-20 23 [facility] Repository (1 source) metFORMIN Drug Allergy 08-28-20 23 [facility] (1 source) Penicillins Drug allergy (disorder) 08-28-20 23 [facility] Repository Medications Current Medications Medication Drug [...] 1000 MG PO .COMPLEX January 03, 2024 10:02am 1,000 mg orally bid; Start: 12-26-2023 End: 01-03-2024 take 1000 mg by mouth every eight hours Acetaminophen Discontinued 1000 MG PO Every 8 hours December 25, 2023 11:00pm January 03, 2024 10:02am Start: 08-30-2023 take 2 tablets by mo uth every eight hours for pain Acetaminophen 500 MG 2 tablets for pain Orally every 8 hrs for 30 days MED TO BED UPON DISCHARGE DOS: 09/03/23 Aug, Active Tylenol Active [id number] 200 actuat albuterol 0.09 mg/actuat metered dose inhaler (15 sources) beta2-Adrenergic Agonist Start: 05-08-2024 take 2 puff(s) by mouth every four to six hours as needed for wheezing Albuterol Sulfate Active 0 .ROUTE .COMPLEX 6.7 May 08, 2024 8:56am INHALE 2 PUFFS BY MOUTH EVERY 4 TO 6 HOURS NEEDED SHORTNESS OF BREATH or FOR WHEEZING Start: 01-01-2024 End: 05-08-2024 take 1 puff(s) by inhalation every four to six hours Albuterol Sulfate Discontinued 2 PUFF INHALATION EVERY 4-6 HOURS 6.7 December 31, 2023 11:00pm May 08, 2024 8:56am Start: 01-01-2024 End: 05-08-2024 take 1 puff(s) [...] tablet (20 sources) HMG-CoA Reductase Inhibitor Start: 07-03-2024 take 1 tablet by mouth once daily Atorvastatin Active 0 .ROUTE .COMPLEX July 03, 2024 9:27am TAKE 1 TABLET BY MOUTH DAILY Start: 01-09-2024 End: 07-03-2024 take 1 tablet by mouth once daily Atorvastatin Discontinued 0 .ROUTE .COMPLEX January 09, 2024 1:16pm July 03, 2024 9:27am TAKE 1 TABLET BY MOUTH DAILY Start: 01-09-2024 take 1 tablet by krysten th once daily Atorvastatin Active 0 .ROUTE .COMPLEX January 09, 2024 2:16pm TAKE 1 TABLET BY MOUTH DAILY Start: 08-16-2020 End: 01-09-2024 take 20 mg by mouth once daily at bedtime Atorvastatin Discontinued 20 MG PO Daily at bedtime August 28, 2023 12:00am January 09, 2024 1:16pm Atorvastatin Mickey cium Active azithromycin 250 mg [...] Nonsteroidal Anti-inflammatory Drug Start: 12-21-19 End: 03-11-20 take 1 tablet by mouth twice daily Diclofenac Sodium Active 0 .ROUTE .COMPLEX 180 March 11, 2024 8:07am TAKE 1 TABLET BY MOUTH TWICE DAILY Start: 11-22-2023 End: 12-21-2023 take 75 mg by mouth twice daily Diclofenac Sodium Discontinued 75 MG PO Twice daily November 22, 2023 12:00am December 21, 2023 2:38pm Start: 08-28-2023 End: 09-03-2023 take 75 mg by mouth twice daily Diclofenac Sodium Discontinued 75 MG PO Twice daily August 28, 2023 12:00am September 03, 2023 6:50am Diclofenac Activ e Diclofenac 75mg Tab-DR (1 source) Start: 08-16-2020 take 1 tablet by mouth twice daily Diclofenac 75mg Tab-DR 75 mg, Oral, BID, Refills(s) 0 Start Date: 08/16/20 Status: Ordered docusate sodium 50 mg / sennosides, group home 8.6 mg oral tablet (12 sources) [...] 1 SPRAY INTRANASAL Daily November 22, 2023 12:00am take 1 spray(s) nasa l route once [...] Start Date: 08/18/20 Status: Ordered levothyroxine sodium 0.075 mg oral tablet (20 sources) l-Thyroxi ne Start: 07-03-2024 take 1 tablet by mouth once daily in the morning Levothyroxine Active 0 .ROUTE .COMPLEX July 03, 2024 1:03pm TAKE 1 TABLET BY MOUTH ONCE DAILY IN THE MORNING ON AN EMPTY STOMACH Start: 06-10-2024 End: 07-03-2024 take 1 tablet by mouth once daily in the morning Levothyroxine Discontinued 0 .ROUTE .COMPLEX June 10, 2024 7:46am July 03, 2024 1:03pm TAKE 1 TABLET BY MOUTH ONCE DAILY IN THE MORNING ON AN EMPTY STOMACH Start: 01-09-2024 End: 06-10-2024 take 1 tablet by mouth in the morning Levothyroxine Discontinued 0 .ROUTE .COMPLEX January 09, 2024 1:16pm June 10, 2024 7:46am TAKE 1 TABLET BY MOUTH IN THE MORNING ON AN EMPTY STOMACH Start: 11-21-2023 End: 01-09-2024 take 1 tablet by mouth once daily in the morning Levothyroxine Discontinued 0 .ROUTE .COMPLEX November 21, 2023 12:46pm January 09, 2024 1:16pm TAKE 1 TABLET BY MOUTH ONCE DAILY IN THE MORNING ON AN EMPTY STOMACH Start: 08-28-2023 End: 11-21-2023 take 50 ug by mouth once daily in the morning Levothyroxine Discontinued 50 MCG PO Every morning August 28, 2023 12:00am November 21, 2023 12:46pm Start: 01-17-2023 take 1 tablet by krysten [...] hr Active 1 TAB PO Daily December 25, 2023 11:00pm take 10-240 mg by mouth once as [...] 2023 12:00am mounjaro 2.5 mg/0.5ml solution pen-injector (13 sources) [...] once daily Pantoprazole Active 0 .ROUTE .COMPLEX July 08, 2024 7:28am TAKE 1 TABLET BY MOUTH DAILY Start: 05-12-2024 End: 07-08-2024 take 1 tablet by mouth once daily Pantoprazole Discontinued 0 .ROUTE .COMPLEX May 12, 2024 10:42am July 08, 2024 7:28am TAKE 1 TABLET BY MOUTH DAILY Start: 05-12-2024 take 1 tablet by krysten th once daily Pantoprazole Active 0 .ROUTE .COMPLEX May 12, 2024 11:42am TAKE 1 TABLET BY MOUTH DAILY Start: 03-11-2024 End: 05-12-2024 take 1 tablet by mouth once daily Pantoprazole Discontinued 0 .ROUTE .COMPLEX March 11, 2024 8:06am May 12, 2024 10:42am TAKE 1 TABLET BY MOUTH DAILY Start: 03-11-2024 End: 05-12-2024 take 1 tablet by mouth once daily Pantoprazole Discontinued 0 .ROUTE .COMPLEX March 11, 2024 9:06am May 12, 2024 11:42am TAKE 1 TABLET BY MOUTH DAILY Start: 11-21-2023 End: 03-11-2024 take 1 tablet by mouth once daily Pantoprazole Discontinued 0 .ROUTE .COMPLEX November 21, 2023 12:47pm March 11, 2024 8:07am TAKE 1 TABLET BY MOUTH DAILY Start: [...] PO Every morning August 28, 2023 12:00am November 21, 2023 12:47pm take 1 tablet by krysten th every twenty-four hours Pantoprazole Sodium 20 MG 1 tablet Orally Once a day Active polyethylene glycol 3350 27756 mg powder for oral solution (13 sources) Osmotic Laxative Start: 08-04-2024 Polyethylene Glycol 3350 (Miralax) 17 gram powder in packet Active 17 GM PO Daily August 04, 2024 12:00am Start: 08-30-2023 MiraLax 17 GM 1 packet mixed with 8 ounces of fluid Orally Once a day for 7 days MED TO BED UPON DISCHARGE DOS: 09/03/23 Aug, Active predniSONE 20 mg oral tablet (4 sources) take 1 tablet by krysten th every twenty-four hours predniSONE 20 MG 1 [...] MG PO Twice daily November 22, 2023 12:00am Qunol Ultra CoQ1 0 100-150 MG-UNIT as directed Orally Not-Taking/PRN Vitamin D 50 MCG (1999) (3 sources) take 1 capsule by [facility] once daily Vitamin D 50 MCG (1999) [...] Not-Taking/PRN doxycycline monohydrate 100 mg oral capsule (13 sources) Tetracycline-class Drug Start: 12-26-2023 End: 02-21-2024 take 100 mg by mouth twice daily Doxycycline Monohydrate Discontinued 100 MG PO Twice daily 20 07December 25, 2023 11:00pm February 21, 2024 9:19am Start: 10-19-2019 take 1 capsule by [facility] every twelve hours Doxycycline Monohydrate 100 MG [...] mg / trimethoprim 160 mg oral tablet (12 sources) Dihydrofolate Reductase Inhibitor Antibacterial, Sulfonamide Antimicrobial Start: 11-21-2023 End: 12-26-2023 take 1 tablet by mouth twice daily Sulfamethoxazole- Trimethoprim Discontinued 1 TAB PO Twice daily November 21, 2023 12:00am December 26, 2023 7:55am Tirzepatide (20 sources) Start: 02-21-2024 End: 02-21-2024 Tirzepatide (Mounjaro) 2.5 mg/0.5 mL pen injector Discontinued 2.5 MG SUBCUT every week February 21, 2024 9:19am February 21, 2024 9:49am Start: 02-21-2024 End: 02-21-2024 Tirzepatide (Mounjaro) 2.5 m g/0.5 mL pen injector Discontinued 2.5 MG SUBCUT every week February 21, 2024 10:19am February 21, 2024 10:49am Start: 02-21-2024 Tirzepatide (M ounjaro) 2.5 mg/0.5 mL pen injector Active 2.5 MG SUBCUT every week February 21, 2024 10:19am Start: 08-28-2023 End: 02-21-2024 Tirzepatide (Mounjaro) 2.5 m g/0.5 mL Pen Injector Discontinued 2.5 MG SUBCUT every week August 28, 2023 12:00am February 21, 2024 9:20am Start: 08-28-2023 End: 02-21-2024 Tirzepatide (Mounjaro) 2.5 m g/0.5 mL Pen Injector Discontinued 2.5 MG SUBCUT every week August 28, 2023 1:00am February 21, 2024 10:20am Start: 08-28-2023 Tirzepatide (M ounjaro) 2.5 mg/0.5 [...] Episodic Chronic obstructive pulmonary disease and bronchiectasis (14 sources) Bronchitis; Translations: [Bronchitis, not specified as acute or chronic] 12-26-2023 Episodic Chronic ulcer of skin (11 sources) Non-pressure chronic ulcer of left heel and midfoot with fat layer exposed; Translations: [Non-pressure chronic ulcer of left heel and midfoot with necrosis of bone] Onset: 2 Chronic Coagulation and hemorrhagic disorders (2 sources) Finding related to bruising; Translations: [Spontaneous ecchymoses] 06-17-2024 Episodic Coma; stupor; and brain damage (20 sources) Excessive daytime sleepiness - normal night sleep; Translations: [Somnolence] Onset: 3 Episodic Complications of surgical procedures or medical care (4 sources) Disruption of internal operation (surgical) wound, not elsewhere classified, initial encounter; Translations: [Dehiscence of surgical wound] Onset: 2 Episodic Deficiency and other anemia (1 source) Anemia; Translations: [Anemia, unspecified] 07-03-2024 Episodic Diabetes mellitus without complication (20 sources) [...] Chronic Other aftercare (2 sources) Other terminal makeup operator (current) drug therapy; Translations: [OTH PENITENTIARY CURRENT DRUG THERAPY] Onset: 3 Episodic Other circulatory disease (3 sources) Elevated blood-pressure reading without diagnosis of hypertension; Translations: [Elevated blood-pressure reading, without diagnosis of hypertension] Episodic Other circulatory disease (10 sources) Pulmonary congestion ; Translations: [Other specified [...] unspecified] 12-26-2023 Episodic Other lower respiratory disease (12 sources) Solitary nodule of lung; Translations: [Solitary [...] Onset: 8 Chronic Other upper respiratory disease (3 sources) Change in voice; Translations: [Unspecified voice and resonance disorder] 06-16-2024 Episodic Other upper respiratory disease (3 sources) Unspecified voice and resonance disorder; Translations: [Other voice and resonance disorders] 06-16-2024 Episodic Other upper respiratory infections (3 sources) Chronic sinusitis; Translations: [Chronic sinusitis, unspecified] Chronic Other upper respiratory infections (19 sources) Acute maxillary sinusitis; Translations: [Acute maxillary [...] Translations: [Tobacco use] Episodic Residual codes; unclassified (3 sources) Family history of Von Willebrand disease; Translations: [Family history of diseases of the blood and blood-forming organs and certain disorders involving the immune mechanism] 06-16-2024 Episodic Residual codes; unclassified (3 sources) Family history of diseases of the [...] Test Name Value Interpretation Reference Range Facility Albumin [Mass/volume] in Ser um or Plasmaon 07-15-2024 Albumin [Mass/Vol] 3.7 g/dL 2.9-4.4 [facility] Basophils Auto (Bld) [#/Vol] on 07-15-2024 Basophils (Bld) [#/Vol] 0.1 10 3/uL 0.0-0.1 [facility] Basophils/100 WBC Auto (Bld) on 07-15-2024 Basophils/100 WBC (Bld) 1.5 % 0.2-2.0 [facility] Eosinophils/100 WBC Auto (Bl d)on 07-15-2024 Eosinophils/100 WBC (Bld) 2.0 % 0.9-7.0 [facility] Erythrocyte distribution wid th Auto (RBC) [Ratio]on 07-15-2024 Erythrocyte distribution width (RBC) [Ratio] 22.6 % High 11.0-15.0 [facility] Estimated glomerular filtrat ion rate (GFR) non- Americanon 07-15-2024 GFR/1.73 sq M.predicted among non-blacks MDRD (S/P/Bld) [Vol rate/Area] 59 mL/min/{1.73_m2} Low >=60 mL/min/1.7 3m 2 [facility] Globulin Calc (S) [Mass/Vol] on 07-15-2024 Globulin (S) [Mass/Vol] 3.9 g/dL [facility] Hematocrit Auto (Bld) [Volum e fraction]on 07-15-2024 Hematocrit (Bld) [Volume fraction] 38.2 % 36.0-48.0 [facility] Hemoglobin [Mass/volume] in Bloodon 07-15-2024 Hemoglobin (Bld) [Mass/Vol] 11.2 g/dL Low 12.0-16.0 [facility] IgA [Mass/volume] in Serum o r Plasmaon 07-15-2024 IgA [Mass/Vol] 117 mg/dL 87-352 [facility] IgG [Mass/volume] in Serum o r Plasmaon 07-15-2024 IgG [Mass/Vol] 938 mg/dL 586-1602 [facility] IgM [Mass/volume] in Serum o r Plasmaon 07-15-2024 IgM [Mass/Vol] 43 mg/dL 26-217 [facility] Iron binding capacity [Mass/ volume] in Serum or Plasmaon 07-15-2024 Iron binding capacity [Mass/Vol] 457.0 ug/dL High 250.0-450. 0 [facility] Iron saturation [Mass Fracti on] in Serum or Plasmaon 07-15-2024 Iron saturation [Mass fraction] 3.7 % [facility] Laboratory - Chemistry and C hemistry - challengeon 07-15-2024 Albumin [Mass/Vol] 3.6 g/dL 3.4-5.0 [facility] ALP [Catalytic activity/Vol] 129 U/L High 46-116 [facility] ALT [Catalytic activity/Vol] 28 U/L 14-59 [facility] AST [Catalytic activity/Vol] 16 U/L 15-37 [facility] Bilirubin [Mass/Vol] 0.3 mg/dL 0.2-1.0 [facility] Calcium [Mass/Vol] 9.4 mg/dL 8.5-10.1 [facility] Chloride [Moles/Vol] 107 mmol/L 98-107 [facility] CO2 [Moles/Vol] 23.5 mmol/L 21.0-32.0 [facility] Cobalamin (Vitamin B12) [Mass/Vol] 619 pg/mL 232-1245 [facility] Comment on above: Performed at: - [facility] [address] [id number] Director: Luis Mukherjee PhD, Phone: [phone] Creatinine [Mass/Vol] 0.96 mg/dL 0.55-1.02 [facility] Ferritin [Mass/Vol] 22.0 ng/mL 8.0-252.0 [facility] GFR/1.73 sq M.predicted MDRD (S/P/Bld) [Vol rate/Area] mL/min/{1.73_m2} >=60 mL/min/1.7 3m 2 [facility] Glucose [Mass/Vol] 170 mg/dL High 74-106 [facility] Iron [Mass/Vol] 17.0 ug/dL Low 50.0-170.0 [facility] LDH [Catalytic activity/Vol] 205 U/L 81-234 [facility] Potassium [Moles/Vol] 4.0 mmol/L 3.5-5.1 [facility] Protein [Mass/Vol] 0.2 g/dL Abnormal Not Observed [facility] Protein [Mass/Vol] 7.5 g/dL 6.4-8.2 [facility] Sodium [Moles/Vol] 143 mmol/L 136-145 [facility] Urea nitrogen [Mass/Vol] 18.0 mg/dL 7.0-18.0 [facility] Urea nitrogen/Creatinine [Mass ratio] 18.8 mg/mg [facility] Laboratory - Hematology and Cell countson 07-15-2024 ESR (Bld) [Velocity] 62 mm/h High <=30 [facility] Immature granulocytes/100 WBC (Bld) 0.2 % 0.0-0.5 [facility] Leukocytes [#/volume] correc janell for nucleated erythrocytes in Blood by Automated counon 07-15-2024 WBC corrected for nucl RBC Auto (Bld) [#/Vol] 5.5 10 3/uL 4.0-11.0 [facility] Lymphocytes Auto (Bld) [#/Vo l]on 07-15-2024 Lymphocytes (Bld) [#/Vol] 1.6 10 3/uL 1.2-3.8 [facility] Lymphocytes/100 WBC Auto (Bl d)on 07-15-2024 Lymphocytes/100 WBC (Bld) 28.8 % 20.5-60.0 [facility] MCH Auto (RBC) [Entitic mass ]on 07-15-2024 MCH (RBC) [Entitic mass] 22.7 pg Low 26.7-34.0 [facility] MCHC Auto (RBC) [Mass/Vol]on 07-15-2024 MCHC (RBC) [Mass/Vol] 29.3 g/dL Low 29.9-35.2 [facility] MCV Auto (RBC) [Entitic vol] on 07-15-2024 MCV (RBC) [Entitic vol] 77.5 fL Low 81.0-99.0 [facility] Monocytes Auto (Bld) [#/Vol] on 07-15-2024 Monocytes (Bld) [#/Vol] 0.3 10 3/uL 0.3-0.8 [facility] Monocytes/100 WBC Auto (Bld) on 07-15-2024 Monocytes/100 WBC (Bld) 5.9 % 1.7-12.0 [facility] Neutrophils Auto (Bld) [#/Vo l]on 07-15-2024 Neutrophils (Bld) [#/Vol] 3.4 10 3/uL 1.4-6.5 [facility] Neutrophils/100 WBC Auto (Bl d)on 07-15-2024 Neutrophils/100 WBC (Bld) 61.6 % 43.0-75.0 [facility] No Panel Informationon 07-15 C-Reactive Protein, Quantitative <0.50 mg/dL <=0.50 [facility] Eosinophils # (Auto) 0.1 10 3/uL 0.0-0.7 Fir [facility] Folate 18.00 ng/mL 8.60-58.90 [facility] Immature Granulocyte # (Auto) 0.01 10 3/uL 0.00-0.03 [facility] Protein Electrophoresis Note Comment . [facility] Comment on above: Protein electrophore sis scan will follow via computer,mail, or steam table associate delivery.Performed at: [facility] [id number] Director: Luis Mukherjee PhD, Phone: [phone] Platelet mean volume Auto (B ld) [Entitic vol]on 07-15-2024 Platelet mean volume (Bld) [Entitic vol] 9.5 fL 9.5-13.5 [facility] Platelets Auto (Bld) [#/Vol] on 07-15-2024 Platelets (Bld) [#/Vol] 412 10 3/uL 150-450 [facility] Protein [Mass/volume] in Ser um or Plasmaon 07-15-2024 Protein [Mass/Vol] 7.0 g/dL 6.0-8.5 [facility] RBC Auto (Bld) [#/Vol]on RBC (Bld) [#/Vol] 4.93 10 6/uL 4.20-5.40 [facility] Comment on above: ANISOCYTOSIS 1+ Reticulocytes/100 RBC Auto ( Bld)on 07-15-2024 Reticulocytes/100 RBC (Bld) 2.69 % 0.60-3.10 [facility] Serum globulin measurement ( mass/volume)on 07-15-2024 Globulin (S) [Mass/Vol] 3.3 g/dL 2.2-3.9 [facility] Serum or plasma albumin/glob ulin mass ratioon 07-15-2024 Albumin/Globulin [Mass ratio] 0.9 {ratio} [facility] Albumin/Globulin [Mass ratio] 1.2 {ratio} 0.7-1.7 [facility] Serum or plasma alpha 1 glob ulin measurement by electrophoresis (mass/volume)on 07-15-2024 Alpha 1 globulin Elph [Mass/Vol] 0.3 g/dL 0.0-0.4 [facility] Serum or plasma alpha 2 glob ulin measurement by electrophoresis (mass/volume)on 07-15-2024 Alpha 2 globulin Elph [Mass/Vol] 0.9 g/dL 0.4-1.0 [facility] Serum or plasma anion gap de terminationon 07-15-2024 Anion gap [Moles/Vol] 16.5 mmol/L [facility] Serum or plasma beta globuli n measurement by electrophoresis (mass/volume)on 07-15-2024 Beta globulin Elph [Mass/Vol] 1.1 g/dL 0.7-1.3 [facility] Serum or plasma gamma globul in measurement by electrophoresis (mass/volume)on 07-15-2024 Gamma globulin Elph [Mass/Vol] 0.9 g/dL 0.4-1.8 [facility] Serum or plasma immunoelectr ophoresis interpretationon 07-15-2024 Interpretation IEP [Interp] Comment Abnormal . [facility] Comment on above: Immunofixation shows IgG monoclonal protein with lambdalight chain specificity. Activated partial thrombopla stin time (aPTT) in platelet poor plasma by coagulation aon 06-17-2024 aPTT Coag (PPP) [Time] 26.5 s 22.3-36.2 [facility] Basophils Auto (Bld) [#/Vol] on 06-17-2024 Basophils (Bld) [#/Vol] 0.1 10 3/uL 0.0-0.1 [facility] Basophils/100 WBC Auto (Bld) on 06-17-2024 Basophils/100 WBC (Bld) 1.4 % 0.2-2.0 [facility] Cholesterol in LDL Calc [Mas s/Vol]on 06-17-2024 Cholesterol in LDL [Mass/Vol] 72.0 mg/dL [facility] Comment on above: <100 mg/dl [id number] 0-129 mg/dl NEAR OR ABOVE [id number] mg/dl BORDERLINE [id number] mg/dl HIGH>190 mg/dl VERY HIGH Cholesterol in VLDL Calc [Ma ss/Vol]on 06-17-2024 Cholesterol in VLDL [Mass/Vol] 33.4 mg/dL [facility] Eosinophils/100 WBC Auto (Bl d)on 06-17-2024 Eosinophils/100 WBC (Bld) 1.8 % 0.9-7.0 [facility] Erythrocyte distribution wid th Auto (RBC) [Ratio]on 06-17-2024 Erythrocyte distribution width (RBC) [Ratio] 17.7 % High 11.0-15.0 [facility] Hematocrit Auto (Bld) [Volum e fraction]on 06-17-2024 Hematocrit (Bld) [Volume fraction] 33.7 % Low 36.0-48.0 [facility] Hemoglobin [Mass/volume] in Bloodon 06-17-2024 Hemoglobin (Bld) [Mass/Vol] 9.8 g/dL Low 12.0-16.0 [facility] INR in Platelet poor plasma by Coagulation assayon 06-17-2024 INR Coag (PPP) [Relative time] 0.95 {INR} [facility] Comment on above: DESIRED INR:2.0-3.0 CONDITIONS NOT LISTED BELOW2.5-3.5 FOR PROSTHETIC HEART VALVE REPLACEMENT2.5-3.5 RECURRENT THROMBOSIS Laboratory - Chemistry and C hemistry - challengeon 06-17-2024 Cholesterol [Mass/Vol] 171 mg/dL <=200 [facility] Cholesterol in HDL [Mass/Vol] 66 mg/dL High 40-60 [facility] Comment on above: > or =60 mg/dl - LOW CARDIOVASCULAR RISK<40 mg/dl - HIGH CARDIOVASCULAR RISK Free T4 [Mass/Vol] 0.78 ng/dL 0.76-1.46 [facility] Triglyceride [Mass/Vol] 167 mg/dL High <=150 [facility] TSH Qn 6.061 m[IU]/L High 0.358-3.74 0 [facility] Laboratory - Hematology and Cell countson 06-17-2024 Immature granulocytes/100 WBC (Bld) 0.0 % 0.0-0.5 [facility] Leukocytes [#/volume] correc janell for nucleated erythrocytes in Blood by Automated counon 06-17-2024 WBC corrected for nucl RBC Auto (Bld) [#/Vol] 5.0 10 3/uL 4.0-11.0 [facility] Lymphocytes Auto (Bld) [#/Vo l]on 06-17-2024 Lymphocytes (Bld) [#/Vol] 1.9 10 3/uL 1.2-3.8 [facility] Lymphocytes/100 WBC Auto (Bl d)on 06-17-2024 Lymphocytes/100 WBC (Bld) 37.1 % 20.5-60.0 [facility] MCH Auto (RBC) [Entitic mass ]on 06-17-2024 MCH (RBC) [Entitic mass] 21.5 pg Low 26.7-34.0 [facility] MCHC Auto (RBC) [Mass/Vol]on 06-17-2024 MCHC (RBC) [Mass/Vol] 29.1 g/dL Low 29.9-35.2 [facility] MCV Auto (RBC) [Entitic vol] on 06-17-2024 MCV (RBC) [Entitic vol] 74.1 fL Low 81.0-99.0 [facility] Monocytes Auto (Bld) [#/Vol] on 06-17-2024 Monocytes (Bld) [#/Vol] 0.4 10 3/uL 0.3-0.8 [facility] Monocytes/100 WBC Auto (Bld) on 06-17-2024 Monocytes/100 WBC (Bld) 8.0 % 1.7-12.0 [facility] Neutrophils Auto (Bld) [#/Vo l]on 06-17-2024 Neutrophils (Bld) [#/Vol] 2.6 10 3/uL 1.4-6.5 [facility] Neutrophils/100 WBC Auto (Bl d)on 06-17-2024 Neutrophils/100 WBC (Bld) 51.7 % 43.0-75.0 [facility] No Panel Informationon 06-17 Eosinophils # (Auto) 0.1 10 3/uL 0.0-0.7 [facility] Immature Granulocyte # (Auto) 0.00 10 3/uL 0.00-0.03 [facility] Platelet mean volume Auto (B ld) [Entitic vol]on 06-17-2024 Platelet mean volume (Bld) [Entitic vol] 9.2 fL Low 9.5-13.5 [facility] Platelets Auto (Bld) [#/Vol] on 06-17-2024 Platelets (Bld) [#/Vol] 400 10 3/uL 150-450 [facility] Prothrombin time (PT)on 06-01 PT Coag (PPP) [Time] 10.1 s 9.0-11.6 [facility] RBC Auto (Bld) [#/Vol]on RBC (Bld) [#/Vol] 4.55 10 6/uL 4.20-5.40 [facility] Serum or plasma total choles terol/high density lipoprotein (HDL) cholesterol mass bridget 06-17-2024 Cholesterol.total/Chol esterol in HDL [Mass ratio] 2.6 {ratio} [facility] Comment on above: 3.3 - 4.4 LOW RISK4. 4 - 7.1 AVERAGE RISK7.1 - 11.0 MODERATE RISK>11.0 HIGH RISK Estimated glomerular filtrat ion rate (GFR) non- Americanon 01-11-2024 GFR/1.73 sq M.predicted among non-blacks MDRD (S/P/Bld) [Vol rate/Area] mL/min/{1.73_m2} >=60 [facility] Laboratory - Chemistry and C hemistry - challengeon 01-11-2024 Creatinine [Mass/Vol] 0.85 mg/dL 0.55-1.02 [facility] GFR/1.73 sq M.predicted MDRD (S/P/Bld) [Vol rate/Area] mL/min/{1.73_m2} >=60 [facility] XR hip RT min 2V(w/wo pelvis )*on 11-28-2023 XR hip RT min 2V(w/wo pelvis)* [facility] Main [address] [address] XRay Report Signed Patient: Nicol Smith MR#: [id number] 9 : 1960 Acct:[id number] Age/Sex: 63 / F ADM Date: 11/28/23 Loc: [facility] Room: Type: REG CLI Attending Dr: David Mcfarland II, MD Copies [...] COMPLICATION.. Impression dictated by: Stalin Matamoros Jr., D.OMiguel11/28/2023 1:06 PM Dictation Location: [place] [address] Transcribed By: [facility] 11/28/23 1306 Dictated By: Stalin Matamoros Jr, DO 11/28/23 1305 Signed By: 11/28/23 1306 Normal [facility] XR hip RT min 2V(w/wo pelvis )*on 10-17-2023 XR hip RT min 2V(w/wo pelvis)* [facility] Main [place] [address] [place] [address] XRay Report Signed Patient: Nicol Smith MR#: [id number] 9 : 1960 Acct:[id number] Age/Sex: 63 / F ADM Date: 10/17/23 Loc: [facility] Room: Type: [facility] CLI Attending Dr: David Mcfarland II, MD Copies [...] Kane Katz M.D.10/17/2023 3:39 PM Dictation Location: [place] [address] Transcribed By: [facility] 10/17/23 153 Dictated By: Kane Katz DO 10/17/23 153 Signed By: 10/17/23 153 Normal [facility] XR hip RT min 2V(w/wo pelvis)* [facility] [employer] Other XR hip RT min 2V(w/wo pelvis)* [facility] [place] [employer] Other XR hip RT min 2V(w/wo pelvis)* [address] [place] [address] [employer] Other XR hip RT min 2V(w/wo pelvis)* [place] [address] [employer] Other XR hip RT min 2V(w/wo pelvis)* XRay Report [employer] Other XR hip RT min 2V(w/wo pelvis)* Signed [employer] Other XR hip RT min 2V(w/wo pelvis)* Patient: Nicol Smith MR#: [id number] [employer] Other XR hip RT min 2V(w/wo pelvis)* 9 [employer] Other XR hip RT min 2V(w/wo pelvis)* : 1960 Acct:[id number] [employer] Other XR hip RT min 2V(w/wo pelvis)* Age/Sex: 63 / F ADM Date: 10/17/23 [employer] Other XR hip RT min 2V(w/wo pelvis)* Loc: [facility] Room: Type: [facility] [employer] Other XR hip RT min 2V(w/wo pelvis)* Attending Dr: David Mcfarland II, MD [employer] Other XR hip RT min 2V(w/wo pelvis)* Copies to: David Mcfarland MD [employer] Other XR hip RT min 2V(w/wo pelvis)* Ordering Provider: David Mcfarland MD [employer] Other XR hip RT min 2V(w/wo pelvis)* Date of Service: 10/17/23 [employer] Other XR hip RT min 2V(w/wo pelvis)* XR/XR hip RT min 2V(w/wo pelvis)*: Aftercare following joint replacement [employer] Other XR hip RT min 2V(w/wo pelvis)* surgery;[employer] [email or web address] Other XR hip RT min 2V(w/wo pelvis)* 2 views right hip with single view pelvis plain film [employer] Other XR hip RT min 2V(w/wo pelvis)* COMPARISON: 09/03/2023 [email or web address] Other XR hip RT min 2V(w/wo pelvis)* HISTORY: Status post right total hip arthroplasty [employer] Other XR hip RT min 2V(w/wo pelvis)* ACUTE FINDINGS: None [employer] Other XR hip RT min 2V(w/wo pelvis)* DEGENERATIVE CHANGE: Unremarkable [employer] Other XR hip RT min 2V(w/wo pelvis)* SOFT TISSUE FINDINGS: Unremarkable [employer] Other XR hip RT min 2V(w/wo pelvis)* JOINT EFFUSION: None [employer] Other XR hip RT min 2V(w/wo pelvis)* POSTOP CHANGES: Stable bilateral hip arthroplasties. [employer] Other XR hip RT min 2V(w/wo pelvis)* BONY MINERALIZATION: Adequate [employer] Other XR hip RT min 2V(w/wo pelvis)* XR/XR hip RT min 2V(w/wo pelvis)* [employer] Other XR hip RT min 2V(w/wo pelvis)* IMPRESSION: Stable right hip arthroplasty. [employer] Other XR hip RT min 2V(w/wo pelvis)* Impression dictated by: Kane Katz M.D.10/17/2023 3:39 PM [employer] Other XR hip RT min 2V(w/wo pelvis)* Dictation Location: [place] [address] [employer] Other XR hip RT min 2V(w/wo pelvis)* Transcribed By: PWS 10/17/23 [facility] [employer] Other XR hip RT min 2V(w/wo pelvis)* Dictated By: Kane Katz DO 10/17/23 [facility] [employer] Other XR hip RT min 2V(w/wo pelvis)* Signed By: [employer] Other XR hip RT min 2V(w/wo pelvis)* 10/17/23 [facility] [employer] Other ABO/Rh Retypeon 09-03-2023 ABO/RH Recheck Result Positive Normal [facility] Comment on above: Result Comment: PERF ORMED BY: [facility] [address] [place] [address] PATHOLOGIST [employer]EL[employer] SUAD Killian 09-03-2023 L ----- Specimen: [id number] Received: 09/03/23 Status: GRACIELA Justin Num: [id number] Spec Type: Surgical Subm Dr: David Mcfarland MD Tissues: A Femoral Head - Other than Fracture (RT HIP) Procedures: HE/2, Gross/Micro L3, Decalcification Age/ Patient Sex Location Account Attending Physician Nicol Smith 63/F [place] [id number] David Mcfarland MD SPEC NUM: [id number] RECD: 09/03/23 STATUS: GRACIELA KATHY NUM: [id number] SABRINA: 09/03/23 [facility] DR: David Mcfarland MD ENTERED: 09/03/[address]: SPEC TYPE: Surgical DEPT: S ORDERED: HE/2, Gross/Micro [...] is taken. Gross examination only. CPT Codes 14199 Specimen: [id number] Received: 09/03/23 Status: GRACIELA Dominguez Num: [id number] Spec Type: Surgical Subm Dr: David Mcfarland MD Tissues: A Femoral Head - Other than Fracture (RT HIP) Procedures: HE/2, Gross/Micro L3, Decalcification Patient: Nicol Smith [id number] (Continued) Specimen: [id number] Received: 09/03/23 (Continued) Signed (signature on file) Dez Núñez MD 09/07/23 1345 Specimen: [id number] Received: 09/03/23 Status: GRACIELA Dominguez Num: [id number] Spec Type: Surgical Subm Dr: David Mcfarland MD Tissues: A Femoral Head - Other than Fracture (RT HIP) Procedures: HE/2, Gross/Micro L3, Decalcification Patient: Nicol Smith [id number] (Continued) Specimen: [id number] Received: 09/03/23 (Continued) Gross Photo Specimen: [id number] Received: 09/03/23 Status: GRACIELA Dominguez Num: [id number] Spec Type: Surgical Subm Dr: David Mcfarland MD Tissues: A Femoral Head - Other than Fracture (RT HIP) Procedures: HE/2, Gross/Micro L3, Decalcification Patient: Nicol Smith [id number] (Continued) Signed (signature on file) Dez Núñez MD 09/07/23 1505 Normal [facility] XR low pelvis w/RT x-table h ipon 09-03-2023 XR low pelvis w/RT x-table hip [address] [address] XRay Report Signed Patient: Nicol Smith MR#: [id number] 9 : 1960 Acct:[id number] Age/Sex: 63 / F ADM Date: 09/03/23 Loc: [place] Room: Type: [facility] Attending Dr: David Mcfarland II, MD Copies to: David Mcfarland MD Ordering Provider: David Mcfarland MD Date of Service: 09/03/23 XR/XR low pelvis w/RT x-table hip: Total Hip, due in PACU ([id number]) XR/XR hip RT 1V: ANTERIOR HIP IN [...] Anna Hull M.D.09/03/2023 11:53 AM Dictation Location: [place] [address] Transcribed By: [facility] 09/03/23 1153 Dictated By: Anna Hull MD 09/03/23 1150 Signed By: 09/03/23 1153 Normal [facility] Automated basophil %Ordered By: David Mcfarland on 08-28-2023 Basophils/100 WBC (Bld) 1.1 % Normal . [facility] Comment on above: Performed By: #### C BC, BMP #### [address] #### FRUC #### [facility] , Automated basophil countOrde red By: David Mcfarland on 08-28-2023 Basophils (Bld) [#/Vol] 0.1 10*3/uL Normal 0.0-0.2 [facility] Comment on above: Result Comment: PERF ORMED BY: [place] [address] PATHOLOGIST [employer] DEVELOPER SUAD ARREAGA M.D. Performed By: #### C BC, BMP #### [facility] [address] [place] [address] [place] #### FRUC #### [facility] , Automated blood monocyte cou ntOrdered By: David Mcfarland on 08-28-2023 Monocytes (Bld) [#/Vol] 0.5 10*3/uL Normal 0.0-0.8 [facility] Comment on above: Performed By: #### C BC, BMP #### [place] [address] [place] #### FRUC #### [facility] , Automated eosinophil %Ordere d By: aDvid Mcfarland on 08-28-2023 Eosinophils/100 WBC (Bld) 1.0 % Normal . [facility] Comment on above: Performed By: #### C BC, BMP #### [place] [address] [place] #### FRUC #### [facility] , Automated eosinophil countOr dered By: David Mcfarland on 08-28-2023 Eosinophils (Bld) [#/Vol] 0.1 10*3/uL Normal 0.0-0.45 [facility] Comment on above: Performed By: #### C BC, BMP #### [facility] [address] [place] [address] [place] #### FRUC #### [facility] , Automated erythrocytes count in urine sediment (number/area)Ordered By: David Mcfarland on 08-28-2023 RBC Auto (Urine sed) [#/Area] 1-2 [HPF] 0-4 [facility] Automated leukocytes count i n urine sediment (number/area)Ordered By: David Mcfarland on 08-28-2023 WBC Auto (Urine sed) [#/Area] 10-19 [HPF] 0-4 [facility] Automated monocyte %Ordered By: David Mcfarland on 08-28-2023 Monocytes/100 WBC (Bld) 7.6 % Normal . [facility] Comment on above: Performed By: #### C BC, BMP #### [facility] [address] [place] [address] [place] #### FRUC #### [facility] , Automated neutrophil %Ordere d By: David Mcfarland on 08-28-2023 Neutrophils/100 WBC (Bld) 65.0 % Normal . [facility] Comment on above: Performed By: #### C BC, BMP #### [place] [address] [place] #### FRUC #### [facility] , Automated urine color determ inationOrdered By: David Mcfarland on 08-28-2023 Color (U) Yellow Normal Yellow [facility] Comment on above: Order Comment: Name Collection Type:: Clean-Voided Midstream Performed By: #### A DDONUAPLUS, CUU #### [address] Basic Metabolic Panelon 08-02 GFR/1.73 sq M.predicted MDRD (S/P/Bld) [Vol rate/Area] mL/min/{1.73_m2} Normal [facility] Comment on above: Performed By: #### C BC, BMP #### [place] [address] [place] #### FRUC #### [facility] , Bilirubin Test strip Ql (U)O rdered By: David Mcfarland on 08-28-2023 Bilirubin Ql (U) Negative Negative [facility] Calcium [Mass/volume] in Ser um or PlasmaOrdered By: David Mcfarland on 08-28-2023 Calcium [Mass/Vol] 9.7 mg/dL Normal 8.6-10.3 [facility] Comment on above: Result Comment: PERF ORMED BY: [place] [address] PATHOLOGIST [employer] DEVELOPER SUAD ARREAGA M.D. Performed By: #### C BC, BMP #### [place] [address] [place] #### FRUC #### [facility] , Carbon dioxide, total [Moles /volume] in Serum or PlasmaOrdered By: David Mcfarland on 08-28-2023 CO2 [Moles/Vol] 26.1 mmol/L Normal 21.0-31.0 [facility] Comment on above: Performed By: #### C BC, BMP #### [place] [address] [place] #### FRUC #### [facility] , Chloride [Moles/volume] in S adela or PlasmaOrdered By: David Mcfarland on 08-28-2023 Chloride [Moles/Vol] 107 mmol/L Normal 98-107 [facility] Comment on above: Performed By: #### C BC, BMP #### [place] [address] [place] #### FRUC #### [facility] , Complete Blood Count Auto Di ffon 08-28-2023 Mean Corpuscular HGB Conc 32.1 g/dL Normal 32.0-35.0 [facility] Comment on above: Performed By: #### C BC, BMP #### [facility] [address] [place] [address] [place] #### FRUC #### [facility] , NRBC% 0.1 /100{WBC} Normal 0-0.5 [facility] Comment on above: Performed By: #### C BC, BMP #### [facility] [address] [place] [address] [place] #### FRUC #### [facility] , Creatinine [Mass/volume] in Serum or PlasmaOrdered By: David Mcfarland on 08-28-2023 Creatinine [Mass/Vol] 0.96 mg/dL Normal 0.60-1.20 [facility] Comment on above: Performed By: #### C BC, BMP #### [address] #### FRUC #### [facility] , Dipstick and Microscopicon 1 10-28-2022 Appearance (U) Clear Normal Clear [facility] Comment on above: Order Comment: Name Collection Type:: Clean-Voided Midstream Performed By: #### A DDONUAPLUS, CUU #### [address] Bacteria,Urine None Seen Normal None Seen [facility] Comment on above: Order Comment: Name Collection Type:: Clean-Voided Midstream Performed By: #### A DDONUAPLUS, CUU #### [address] Bilirubin,Urine Negative Normal Negative [facility] Comment on above: Order Comment: Name Collection Type:: Clean-Voided Midstream Performed By: #### A DDONUAPLUS, CUU #### [address] Glucose Ql (U) Normal Normal Normal [facility] Comment on above: Order Comment: Name Collection Type:: Clean-Voided Midstream Performed By: #### A DDONUAPLUS, CUU #### [address] Hyaline Casts,Urine 0-8 Normal 0-8 [facility] Comment on above: Order Comment: Name Collection Type:: Clean-Voided Midstream Result Comment: PERF ORMED BY: [place] [address] PATHOLOGIST [employer] ACCESS DEVELOPER SUAD ARRAEGA M.D. Performed By: #### A DDONUAPLUS, CUU #### [place] [address] [place] Ketones Ql (U) Negative Normal Negative [facility] Comment on above: Order Comment: Name Collection Type:: Clean-Voided Midstream Performed By: #### A DDONUAPLUS, CUU #### [address] Leukocyte esterase Test strip Ql (U) 3+ High Negative [facility] Comment on above: Order Comment: Name Collection Type:: Clean-Voided Midstream Performed By: #### A DDONUAPLUS, CUU #### [place] [address] [place] Nitrite,Urine Negative Normal Negative [facility] Comment on above: Order Comment: Name Collection Type:: Clean-Voided Midstream Performed By: #### A DDONUAPLUS, CUU #### [place] [address] [place] Occult Blood,Urine Negative Normal Negative [facility] Comment on above: Order Comment: Name Collection Type:: Clean-Voided Midstream Result Comment: PERF ORMED BY: [place] [address] PATHOLOGIST [employer] ACCESS DEVELOPER SUAD ARREAGA M.D. Performed By: #### A DDONUAPLUS, CUU #### [place] [address] [place] Protein,Urine Negative Normal Negative [facility] Comment on above: Order Comment: Name Collection Type:: Clean-Voided Midstream Performed By: #### A DDONUAPLUS, CUU #### [place] [address] [place] RBC,Urine 1-2 Normal 0-4 [facility] Comment on above: Order Comment: Name Collection Type:: Clean-Voided Midstream Performed By: #### A DDONUAPLUS, CUU #### [place] [address] [place] Specificy [place],Urine 1.020 Normal 1.001-1.03 0 [facility] Comment on above: Order Comment: Name Collection Type:: Clean-Voided Midstream Performed By: #### A DDONUAPLUS, CUU #### [address] Squamous Epithelial Cell,Urine 3-4 High 0-2 [facility] Comment on above: Order Comment: Name Collection Type:: Clean-Voided Midstream Performed By: #### A DDONUAPLUS, CUU #### [address] Urobilinogen,Urine Normal Normal Normal [facility] Comment on above: Order Comment: Name Collection Type:: Clean-Voided Midstream Performed By: #### A DDONUAPLUS, CUU #### [address] WBC,Urine 10-19 High 0-4 [facility] Comment on above: Order Comment: Name Collection Type:: Clean-Voided Midstream Performed By: #### A DDONUAPLUS, CUU #### [address] ECG 12 lead ECGon 08-28-2023 ECG 12 lead ECG [facility] [place] [address] Electrocardiograph Report Signed Patient: Nicol Smith MR#: [id number] 9 : 1960 Acct:[id number] Age/Sex: 63 / F ADM Date: 08/28/23 Loc: Room: Type: [facility] Attending Dr: David Mcfarland II, MD [...] ECGs available Confirmed by NAHID PINEDA [id number] on 08/28/2023 10:26:43 PM Referred By: BARTOLO Electronically Signed By:KAMARI MANN MD [facility] Transcribed By: [facility] Signed By Jonathan Mann MD 08/28/236 Normal [facility] Erythrocyte distribution wid th [Ratio] by Automated countOrdered By: David Mcfarland on 08-28-2023 Erythrocyte distribution width (RBC) [Ratio] 17.5 % High 11.9-15.3 [facility] Comment on above: Performed By: #### C BC, BMP #### [facility] [address] [place] [address] [place] #### FRUC #### [facility] , Erythrocytes [#/volume] in B lood by Automated countOrdered By: David Mcfarland on 08-28-2023 RBC (Bld) [#/Vol] 4.74 10*6/uL Normal 3.60-5.00 [facility] Comment on above: Performed By: #### C BC, BMP #### [facility] [address] [place] [address] [place] #### FRUC #### [facility] , Fructosamineon 08-28-2023 Fructosamine 205 umol/L Normal 0-285 [facility] Comment on above: Result Comment: Publ ished reference interval for apparently healthy subjects between age 20 and 60 is 205 - 285 umol/L and in a poorly controlled diabetic population is 228 - 563 umol/L with a mean of 396 umol/L. Performed at: - [place] [id number] Emergency Management Specialist: Luis Mukherjee PhD, Phone: [phone] PERFORMED BY: [place] [address] PATHOLOGIST [employer] ACCESS DEVELOPER SUAD ARREAGA M.D. Performed By: #### C BC, BMP #### [place] [address] [place] #### FRUC #### [facility] , Fructosamine [Moles/volume] in Serum or PlasmaOrdered By: David Mcfarland on 08-28-2023 Fructosamine [Moles/Vol] 205 umol/L 0-285 [facility] Comment on above: Published reference interval for apparently healthysubjects between age 20 and 60 is 205 - 285 umol/L and in apoorly controlled diabetic population is 228 - 563 umol/Lwith a mean of 396 umol/L.Performed at: [address] [id number] Director: Luis Mukherjee PhD, Phone: [phone] Glucose [Mass/volume] in Ser um or PlasmaOrdered By: David Mcfarland on 08-28-2023 Glucose [Mass/Vol] 98 mg/dL Normal 70-100 [facility] Comment on above: ADA recommended refe rence rangeRandom Glucose Reference Range is dependent on time and content of last meal. Glucose of more than 200 mg/dL in a nonstressed, ambulatory subject supports the diagnosis of Diabetes Mellitus. Result Comment: [place] om Glucose Reference Range is dependent on time and content of last meal. Glucose of more than 200 mg/dL in a nonstressed, ambulatory subject supports the diagnosis of Diabetes Mellitus. ADA recommended reference range Performed By: #### C BC, BMP #### [facility] [address] [place] [address] [place] #### FRUC #### [facility] , Hematocrit [Volume Fraction] of Blood by Automated countOrdered By: David Mcfarland on 08-28-2023 Hematocrit (Bld) [Volume fraction] 36.9 % Normal 34.0-46.4 [facility] Comment on above: Performed By: #### C BC, BMP #### [facility] [address] [place] [address] [place] #### FRUC #### [facility] , Hemoglobin [Mass/volume] in BloodOrdered By: David Mcfarland on 08-28-2023 Hemoglobin (Bld) [Mass/Vol] 11.9 g/dL Normal 11.8-15.4 [facility] Comment on above: Performed By: #### C BC, BMP #### [facility] [address] [place] [address] [place] #### FRUC #### [facility] , Ketones Auto test strip (U) [Mass/Vol]Ordered By: David Mcfarland on 08-28-2023 Ketones (U) [Mass/Vol] Negative Negative [facility] - UrinalysisOrder ed By: David Mcfarland on 08-28-2023 Hyaline casts LM Ql (Urine sed) 0-8 [LPF] 0-8 [facility] Leukocytes [#/volume] correc janell for nucleated erythrocytes in Blood by Automated counOrdered By: David Mcfarland on 08-28-2023 WBC corrected for nucl RBC Auto (Bld) [#/Vol] 6.4 10*3/uL 3.8-11.6 [facility] Leukocytes [#/volume] in Blo od by Automated countOrdered By: David Mcfarland on 08-28-2023 WBC (Bld) [#/Vol] 6.4 10*3/uL Normal 3.8-11.6 [facility] Comment on above: Performed By: #### C BC, BMP #### [facility] [address] [place] [address] [place] #### FRUC #### [facility] , Lymphocytes [#/volume] in Bl ood by Automated countOrdered By: David Mcfarland on 08-28-2023 Lymphocytes (Bld) [#/Vol] 1.6 10*3/uL Normal 1.00-4.8 [facility] Comment on above: Performed By: #### C BC, BMP #### [facility] [address] [place] [address] [place] #### FRUC #### [facility] , Lymphocytes/100 leukocytes i n Blood by Automated countOrdered By: David Mcfarland on 08-28-2023 Lymphocytes/100 WBC (Bld) 25.3 % Normal . [facility] Comment on above: Performed By: #### C BC, BMP #### [facility] [address] [place] [address] [place] #### FRUC #### [facility] , MCH [Entitic mass] by Automa janell countOrdered By: David Mcfarland on 08-28-2023 MCH (RBC) [Entitic mass] 25.0 pg Normal 24.7-34.3 [facility] Comment on above: Performed By: #### C BC, BMP #### [facility] [address] [place] [address] [place] #### FRUC #### [facility] , MCHC Auto (RBC) [Mass/Vol]Or dered By: David Mcfarland on 08-28-2023 MCHC (RBC) [Mass/Vol] 32.1 g/dL 32.0-35.0 [facility] MCV [Entitic volume] by Auto mated countOrdered By: David Mcfarland on 08-28-2023 MCV (RBC) [Entitic vol] 78.0 fL Low 80-100 [facility] Comment on above: Performed By: #### C BC, BMP #### [facility] [address] [place] [address] [place] #### FRUC #### [facility] , Neutrophils [#/volume] in Bl ood by Automated countOrdered By: David Mcfarland on 08-28-2023 Neutrophils (Bld) [#/Vol] 4.2 10*3/uL Normal 1.8-7.7 [facility] Comment on above: Performed By: #### C BC, BMP #### [facility] [address] [place] [address] [place] #### FRUC #### [facility] , Nitrite Test strip Ql (U)Ord ered By: David Mcfarland on 08-28-2023 Nitrite Ql (U) Negative Negative [facility] No Panel InformationOrdered By: David Mcfarland on 08-28-2023 Estimated GFR (CKD-EPI) > 60.0 mL/Min [facility] Creatinine Clearance (Chem N/A [facility] Nucleated erythrocytes [Pres ence] in Blood by Automated countOrdered By: David Mcfarland on 08-28-2023 Nucleated RBC Auto Ql (Bld) 0.1 /100{WBC} 0-0.5 [facility] PST Type and Screenon 2022 ABO and Rh group Nom (Bld) Blood group B Rh(D) positive Normal [facility] Comment on above: Order Comment: Date of Surgery: [id number] Platelet mean volume [Entiti c volume] in Blood by Automated countOrdered By: David Mcfarland on 08-28-2023 Platelet mean volume (Bld) [Entitic vol] 8.0 fL Normal 6.3-10.7 [facility] Comment on above: Performed By: #### C BC, BMP #### [facility] [address] [place] [address] [place] #### FRUC #### [facility] , Platelets [#/volume] in Bloo d by Automated countOrdered By: David Mcfarland on 08-28-2023 Platelets (Bld) [#/Vol] 387 10*3/uL Normal 150-450 [facility] Comment on above: Performed By: #### C BC, BMP #### [facility] [address] [place] [address] [place] #### FRUC #### [facility] , Potassium [Moles/volume] in Serum or PlasmaOrdered By: David Mcfarland on 08-28-2023 Potassium [Moles/Vol] 4.2 mmol/L Normal 3.5-5.1 [facility] Comment on above: Performed By: #### C BC, BMP #### [facility] [address] [place] [address] [place] #### FRUC #### [facility] , Protein Auto test strip (U) [Mass/Vol]Ordered By: David Mcfarland on 08-28-2023 Protein (U) [Mass/Vol] Negative Negative [facility] Serum or plasma anion gap de terminationOrdered By: David Mcfarland on 08-28-2023 Anion gap [Moles/Vol] 11.1 mmol/L Normal 6.0-15.0 [facility] Comment on above: Performed By: #### C BC, BMP #### [facility] [address] [place] [address] [place] #### FRUC #### [facility] , Sodium [Moles/volume] in Ser um or PlasmaOrdered By: aDvid Mcfarland on 08-28-2023 Sodium [Moles/Vol] 140 mmol/L Normal 136-145 [facility] Comment on above: Performed By: #### C BC, BMP #### [facility] [address] [place] [address] [place] #### FRUC #### [facility] , Specific gravity Auto test s trip (U) [Rel density]Ordered By: David Mcfarland on 08-28-2023 Specific gravity (U) [Rel density] 1.020 1.001-1.03 0 [facility] Squamous epithelial cells de tection in urine sediment by light microscopyOrdered By: David Mcfarland on 08-28-2023 Epithelial cells.squamous LM Ql (Urine sed) 3-4 [HPF] 0-2 [facility] Urea nitrogen [Mass/volume] in Serum or PlasmaOrdered By: David Mcfarland on 08-28-2023 Urea nitrogen [Mass/Vol] 17 mg/dL Normal 7-25 [facility] Comment on above: Performed By: #### C HOPE, BMP #### [facility] [address] [place] [address] [place] #### FRUC #### [facility] , Urine Cultureon 08-28-2023 Bacteria identified Cx Nom (U) 50,000 colonies/ml mixed bacterial skin contaminants 2 Days PERFORMED BY: [place] [address] PATHOLOGIST [employer]ELOPER SUAD ARREAGA M.D. Normal [facility] Comment on above: Performed By: #### A DDONUAPLUS, CUU ####[address] Urine bacteria detection by automated methodOrdered By: David Mcfarland on 08-28-2023 Bacteria Auto Ql (U) None seen None Seen [facility] Urine clarity by refractomet ry automatedOrdered By: David Mcfarland on 08-28-2023 Clarity Refractometry automated (U) Clear Clear [facility] Urine culture routineOrdered By: David Mcfarland on 08-28-2023 Bacteria identified Cx Nom (U) 2 Days [facility] Urine glucose measurement by automated test strip (mass/volume)Ordered By: David Mcfarland on 08-28-2023 Glucose Auto test strip (U) [Mass/Vol] Normal mg/dL Normal [facility] Urine hemoglobin detection b y automated test stripOrdered By: David Mcfarland on 08-28-2023 Hemoglobin Auto test strip Ql (U) Negative Negative [facility] Urine leukocyte esterase det ection by automated test stripOrdered By: David Mcfarland on 08-28-2023 Leukocyte esterase Auto test strip Ql (U) 3+ Negative [facility] Urine pH measurement by auto mated test stripOrdered By: David Mcfarland on 08-28-2023 pH (U) 5.5 [pH] Normal 5.0-9.0 [facility] Comment on above: Order Comment: Name Collection Type:: Clean-Voided Midstream Performed By: #### A JACOBO GOLDMAN #### [address] Urobilinogen Auto test strip (U) [Mass/Vol]Ordered By: David Mcfarland on 08-28-2023 Urobilinogen (U) [Mass/Vol] Normal mg/dL Normal [facility] XR hip RT min 2V(w/wo pelvis )*on 08-15-2023 XR hip RT min 2V(w/wo pelvis)* [facility] [address] XRay Report Signed Patient: Nicol Smith MR#: [id number] 9 : 1960 Acct:[id number] Age/Sex: 63 / F ADM Date: 08/15/23 Loc: SOXD Room: Type: REG CLI Attending Dr: David Mcfarland II, MD Copies [...] Matamoros Jr., D.O.08/15/2023 4:18 PM Dictation Location: [place] [address] Transcribed By: [facility] 08/15/23 1618 Dictated By: Stalin Matamoros Jr, DO 08/15/23 1617 Signed By: 08/15/23 1618 Normal [facility] TSHon 01-19-2023 TSH 5.502 uIU/mL Critically high 0.358-3.74 0 [facility] Comment on above: Performed By: #### T SH ####[facility] [address] [place] [address]Dr. Yilan Cao GTT 2 HRon 12-12-2022 Glucose [Mass/Vol] 117 mg/dL Critically high 74-106 T [facility] Comment on above: Performed By: #### G TT2 ####[facility] [address] [place] [address]Dr. Yilan Cao Glucose [Mass/Vol] 227 mg/dL Normal [facility] Comment on above: Performed By: #### G TT2 ####[facility] [address] [place] [address]Dr. Yilan Cao Glucose [Mass/Vol] 121 mg/dL Normal [facility] Comment on above: Performed By: #### G TT2 ####[facility] [address] [place] [address]Dr. Darrick Cao TSHon 12-12-2022 TSH 6.852 uIU/mL Critically high 0.358-3.74 0 [facility] Comment on above: Performed By: #### P OCGLUC #### [facility] [address] [place], [place] [address] Dr. Darrick Cao Outside Colonoscopyon 2022 Outside Colonoscopy [id number]:12 7 [facility] Reminderson 12-07-2022 Reminders - From: Yu Waters LPN To: N - Clinical; Sent: 12/07/2022 08:47:38 EST Show up: 11/08/2032 07:00:00 EST Subject: colonoscopy recall Due Date/Time: 12/06/2032 07:00:00 EST Reminder/Recall Patient is due for screening colonoscopy 12/06/2032. [facility] Consent for Procedure/Surger yon 11-09-2022 Consent for Procedure/Surgery [id number]:12 7 [facility] Consent for Procedure/Surgery [id number]:12 7 [facility] Facesheeton 11-09-2022 Facesheet [id number]#[id number]:12 7 [facility] Ambulatory Visit Summaryon 0 11-08-2022 Ambulatory Visit Summary NICOL SMITH :1960 Visit Date:11/08/2022 Ambulatory Visit Instructions Your Diagnosis Screening for malignant neoplasm of colon BMI 45.0-49.9, adult Your Care Team Attending Physician - SOPHIA PINEDA, Efrain Vaz Primary Care Physician - KARI PINEDA, WAQAS This Is Your Medications List Contact prescribing physician if questions or concerns atorvastatin (atorvastatin 20 mg Tab) bifidobacterium/lactobaci llus/streptococcus (High Potency Probiotic) cholecalciferol (Vitamin D3 1000 intl units oral tablet) diclofenac (Diclofenac 75mg Tab-DR) metoprolol (metoprolol 25 mg ER Tab) pantoprazole (Protonix 40 mg Tab-DR) pregabalin (pregabalin 75 mg Cap) Procedures Performed 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 Admission #: [id number] Family : Order #: [id number] CLICK HERE TO VIEW EXAM RADIOLOGY REPORT [...] uterine cancer at age 52. LOCATION: [facility] BREAST COMPOSITION: Scattered areas fibroglandular density. [...] Kelly MD on 11/03/2022 at 11:04 Normal [facility] XR DEXA BONE DENSITYon 11-03 XR [...] by: ARIELA SCHWAB Date: 2022-11-03 11:11 Normal [facility] Comprehensive Metabolic Pane yuli 10-30-2022 Urea nitrogen [Mass/Vol] 20 mg/dL [facility] Other Comprehensive Metabolic Panel [facility] Other Comprehensive Metabolic Panel >60 [facility] Other Comprehensive Metabolic Panel 4.2 [facility] Other Albumin [Mass/Vol] 3.7 g/dL Normal 3.4-5.0 [facility] Other Comment on above: Performed By: #### T SH, CMP, LIPID ####[facility] [address] [place] [address]Dr. Darrick Cao Albumin/Globulin [Mass ratio] 0.9 {ratio} Normal [facility] Other Comment on above: Performed By: #### T SH, CMP, LIPID ####[facility] [address] [place] [address]Dr. Darrick Cao ALP [Catalytic activity/Vol] 112 U/L Normal 46-116 [facility] Other Comment on above: Performed By: #### T SH, CMP, LIPID ####[facility] [address] [place], [place] [address]Dr. Darrick Cao ALT [Catalytic activity/Vol] 34 U/L Normal 14-59 [facility] Other Comment on above: Performed By: #### T SH, CMP, LIPID ####[facility] [address] [place] [address]Dr. Darrick Cao AST [Catalytic activity/Vol] 17 U/L Normal 15-37 [facility] Other Comment on above: Performed By: #### T SH, CMP, LIPID ####[facility] [address] [place], [place] [address]Dr. Darrick Cao Bilirubin [Mass/Vol] 0.4 mg/dL Normal 0.2-1.0 [facility] Other Comment on above: Performed By: #### T SH, CMP, LIPID ####[facility] [address] [place] [id number]. Darrick Cao Calcium [Mass/Vol] 9.2 mg/dL Normal 8.5-10.1 [facility] Other Comment on above: Performed By: #### T SH, CMP, LIPID ####[facility] [address] [place] [address]Dr. Darrick Cao Chloride [Moles/Vol] 105 mmol/L Normal 98-107 [facility] Other Comment on above: Performed By: #### T SH, CMP, LIPID ####[facility] [address] [place], [place] [address]Dr. Darrick Cao CO2 [Moles/Vol] 27.0 mmol/L Normal 21.0-32.0 [facility] Other Comment on above: Performed By: #### T SH, CMP, LIPID ####[facility] [address] [place], [place] [address]Dr. Darrick Cao Creatinine [Mass/Vol] 0.86 mg/dL Normal 0.55-1.02 [facility] Other Comment on above: Performed By: #### T SH, CMP, LIPID ####[facility] [address] [place], [place] [address]Dr. Darrick Cao Glucose [Mass/Vol] 114 mg/dL Critically high 74-106 [facility] Other Comment on above: Performed By: #### T SH, CMP, LIPID ####[facility] [address] [place], [place] [address]Dr. Darrick Cao Potassium [Moles/Vol] 3.9 mmol/L Normal 3.5-5.1 [facility] Other Comment on above: Performed By: #### T SH, CMP, LIPID ####[facility] [address] [place], [place] [address]Dr. Yilan Cao Protein [Mass/Vol] 7.9 g/dL Normal 6.4-8.2 [facility] Other Comment on above: Performed By: #### T SH, CMP, LIPID ####[facility] [address] [place], [place] [address]Vm. Darrick Cao Sodium [Moles/Vol] 143 mmol/L Normal 136-145 [facility] Other Comment on above: Performed By: #### T SH, CMP, LIPID ####[facility] [address] [place], [place] [address]Dz. Darrick Cao FREE T4on 10-30-2022 Free T4 [Mass/Vol] 0.77 ng/dL Normal 0.76-1.46 [facility] Comment on above: Performed By: #### F T4 ####[facility] [address] [place] [id number]. Darrick Cao LIPID PROFILEon 10-30-2022 CHOL-HDL RATIO NORM SEE BELOW Normal [facility] Comment on above: Result Comment: 3.3 - 4.4 LOW RISK 4.4 - 7.1 AVERAGE RISK 7.1 - 11.0 MODERATE RISK >11.0 HIGH RISK Performed By: #### T SH, CMP, LIPID ####[facility] [address] [place], [place] [address]Vc. Darrick Cao Cholesterol in LDL [Mass/Vol] 84.6 mg/dL Normal [facility] Comment on above: Performed By: #### T SH, CMP, LIPID ####[facility] [address] [place], [place] [address]Hs. Darrick Cao HDL NORMAL > or = 60 mg/dl - LO W CARDIOVASCULAR RISK <40 mg/dl - HIGH CARDIOVASCULAR RISK Normal [facility] Comment on above: Performed By: #### T SH, CMP, LIPID ####[facility] [address] [place], [place] [address]Uf. Darrick Cao LDL CALC NORMAL SEE BELOW Normal [facility] Comment on above: Result Comment: <100 mg/dl OPTIMAL 100 - 129 mg/dl NEAR OR ABOVE OPTIMAL 130 - 159 mg/dl BORDERLINE HIGH 160 - 189 mg/dl HIGH >190 mg/dl VERY HIGH Performed By: #### T SH, CMP, LIPID ####[facility] [address] [place], [place] [address]Qy. Darrick Cao Triglyceride [Mass/Vol] 222 mg/dL Critically high <=150 [facility] Comment on above: Performed By: #### T SH, CMP, LIPID ####[facility] [address] [place], [place] [address]Dp. Darrick Cao VLDL CALC 44.4 mg/dL Normal [facility] Comment on above: Performed By: #### T JASON, CMP, LIPID ####[facility] [address] [place], [place] [address]Sx. Darrick Cao Lipid Panelon 10-30-2022 Cholesterol in LDL Elph Qn 84.6 [facility] Other Lipid Panel 222 [facility] Other Lipid Panel 44.4 [facility] Other Cholesterol [Mass/Vol] 185 mg/dL Normal <=200 No [facility] Other Comment on above: Performed By: #### T JASON, CMP, LIPID ####[facility] [address] [place], [place] [address]Hx. Darrick Cao Cholesterol in HDL [Mass/Vol] 56 mg/dL Normal 40-60 [facility] Other Comment on above: Performed By: #### T JASON, CMP, LIPID ####[facility] [address] [place], [place] [address]Kl. Darrick Cao Cholesterol.total/Chol esterol in HDL [Mass ratio] 3.3 {ratio} Normal [facility] Other Comment on above: Performed By: #### T SH, CMP, LIPID ####[facility] [address] [place], [place] [address]Ui. Darrick Cao PROF 14(COMP METB)on 023 Anion gap [Moles/Vol] 14.9 mmol/L Normal [facility] Comment on above: Performed By: #### T SH, CMP, LIPID ####[facility] [address] [place] [address]Dr. Darrick Cao EGFR-AF PALESTINIAN >60 Normal >=60 [facility] Comment on above: Performed By: #### T SH, CMP, LIPID ####[facility] [address] [place] [id number]. Darrick Cao EGFR-NON AF PALESTINIAN >60 Normal >=60 [facility] Comment on above: Performed By: #### T SH, CMP, LIPID ####[facility] [address] [place] [address]Dr. Darrick Cao Globulin (S) [Mass/Vol] 4.2 g/dL Normal [facility] Comment on above: Performed By: #### T SH, CMP, LIPID ####[facility] [address] [place] [address]Dr. Darrick Cao Urea nitrogen [Mass/Vol] 20.0 mg/dL Critically high 7.0-18.0 [facility] Comment on above: Performed By: #### T SH, CMP, LIPID ####[facility] [address] [place], [place] [address]Dr. Darrick Cao Urea nitrogen/Creatinine [Mass ratio] 23.3 mg/mg Normal [facility] Comment on above: Performed By: #### T SH, CMP, LIPID ####[facility] [address] [place] [address]Dr. Darrick Cao TSHon 10-30-2022 TSH 6.415 uIU/mL Critically high 0.358-3.74 0 [facility] Comment on above: Performed By: #### T SH, CMP, LIPID ####[facility] [address] [place], [place] [address]Dr. Darrick Cao Thyroid Stim Hormone w/Rflxo n 10-30-2022 Thyroid Stim Hormone w/Rflx 6.415 [facility] Other VITAMIN B12on 10-30-2022 Cobalamin (Vitamin B12) [Mass/Vol] 664.0 pg/mL Normal 193.0-986. 0 [facility] Comment on above: Performed By: #### V ITB12 #### [facility] [address] [place] [address] Dr. Darrick Cao Vitamin B12on 10-30-2022 Cobalamin (Vitamin B12) [Mass/Vol] 664 pg/mL [facility] Other Automated erythrocytes count in urine sediment (number/area)Ordered By: Waqas Pierce on 10-23-2022 RBC Auto (Urine sed) [#/Area] 0-1 [HPF] 0-4 [facility] Automated leukocytes count i n urine sediment (number/area)Ordered By: Waqas Pierce on 10-23-2022 WBC Auto (Urine sed) [#/Area] 10-19 [HPF] 0-4 [facility] Bilirubin Test strip Ql (U)O rdered By: Waqas Pierce on 10-23-2022 Bilirubin Ql (U) Negative Negative [facility] Color Auto (U)Ordered By: Shay Pierce on 10-23-2022 Color (U) Yellow Yellow [facility] Ketones Auto test strip (U) [Mass/Vol]Ordered By: Waqas Pierce on 10-23-2022 Ketones (U) [Mass/Vol] Negative Negative [facility] - UrinalysisOrder ed By: Waqas Pierce on 10-23-2022 Hyaline casts LM Ql (Urine sed) 0-8 [LPF] 0-8 [facility] Nitrite Test strip Ql (U)Ord ered By: Waqas Pierce on 10-23-2022 Nitrite Ql (U) Negative Negative [facility] Protein Auto test strip (U) [Mass/Vol]Ordered By: Waqas Pierce on 10-23-2022 Protein (U) [Mass/Vol] Negative Negative [facility] Specific gravity Auto test s trip (U) [Rel density]Ordered By: Waqas Pierce on 10-23-2022 Specific gravity (U) [Rel density] 1.016 1.001-1.03 0 [facility] Squamous epithelial cells de tection in urine sediment by light microscopyOrdered By: Waqas Pierce on 10-23-2022 Epithelial cells.squamous LM Ql (Urine sed) 5-9 [HPF] 0-2 [facility] Urine Cultureon 10-23-2022 Bacteria identified Cx Nom (U) [facility] Other Urine bacteria detection by automated methodOrdered By: Waqas Pierce on 10-23-2022 Bacteria Auto Ql (U) None seen None Seen [facility] Urine clarity by refractomet ry automatedOrdered By: Waqas Pierce on 10-23-2022 Clarity Refractometry automated (U) Clear Clear [facility] Urine glucose measurement by automated test strip (mass/volume)Ordered By: Waqas Pierce on 10-23-2022 Glucose Auto test strip (U) [Mass/Vol] Normal mg/dL Normal [facility] Urine hemoglobin detection b y automated test stripOrdered By: Waqas Pierce on 10-23-2022 Hemoglobin Auto test strip Ql (U) Negative Negative [facility] Urine leukocyte esterase det ection by automated test stripOrdered By: Waqas Pierce on 10-23-2022 Leukocyte esterase Auto test strip Ql (U) 3+ Negative [facility] Urobilinogen Auto test strip (U) [Mass/Vol]Ordered By: Waqas Pierce on 10-23-2022 Urobilinogen (U) [Mass/Vol] Normal mg/dL Normal [facility] pH Auto test strip (U)Ordere d By: Waqas Pierce on 10-23-2022 pH (U) 6.0 [pH] 5.0-9.0 [facility] A1C HEMOGLOBINon 10-13-2022 HbA1c (Bld) [Mass fraction] 5.9 % [facility] Other HbA1c (Bld) [Mass fraction]o n 10-13-2022 A1C HEMOGLOBIN [employer] Other XR FOOT LT MIN 3 VIEWSon [...] by: ALEX RYAN Date: 2022-09-20 16:40 Normal [facility] XR LSPINE 2_3 VIEWSon 2021 XR LSPINE 2_3 VIEWS EXAMINATION: XR LSPI NE 2_3 VIEWS HISTORY: Low back pain COMPARISON: 09/26/2019 FINDINGS: BONES: Mild dextrocurvature. Moderate to severe spondylosis and facet osteoarthropathy DISC SPACES: Multilevel disc space narrowing most significant at L5-S1 PARASPINOUS: Negative. No paraspinous abnormality is seen. OTHER: Severe right hip osteoarthropathy with jlmg-mn-dxaq articulation. Left hip arthroplasty IMPRESSION: Moderate to severe degenerative changes Electronically authenticated by: SHAWNEE KELLY Date: 2022-08-20 11:47 Normal [facility] PAP ACOG PANEL 2: 30 to 65on 06-13-2022 . . Normal [facility] Comment on above: Result Comment: Perf ormed at: WB Performed By: #### [id number] ####[facility] [address] [place] [address]DrMiguel Cao Age Gdln ACOG Testing 30-65 Normal [facility] Comment on above: Performed By: #### [id number] ####[facility] [address] [place], [place] [address]QjMiguel Cao DIAGNOSIS: Comment Normal [facility] Comment on above: Result Comment: NEGA TIVE FOR INTRAEPITHELIAL LESION OR MALIGNANCY. THIS SPECIMEN WAS RESCREENED PART OF [employer]. Performed at: WB Performed By: #### [id number] ####[facility] [address] [place] [id number] Cao HPV Aptima Negative Normal Negative [facility] Comment on above: Result Comment: This nucleic acid amplification test detects fourteen high-risk HPV types (16,18,31,33,35,39,45,51,52,56,58,59,66,68) without differentiation. Performed at: =G Performed By: #### [id number] ####[facility] [address] [place] [id number]. Darrick Cao Methodology: Comment Normal [facility] Comment on above: Result Comment: This liquid based ThinPrep(R) pap test was screened with the use of an image guided system. Performed at: WB Performed By: #### [id number] ####[facility] [facility] [address] [place], [place] [address]Dr. Darrick Cao Note: Comment Normal [facility] Comment on above: Result Comment: The Pap smear is a screening test designed to aid in the detection of premalignant and malignant conditions of the uterine cervix. It is not a diagnostic procedure and should not be used as the sole means of detecting cervical cancer. Both false-positive and false-negative reports do occur. . Performed at: WB Performed By: #### [id number] ####[facility] [address] [place], [place] [address]Dr. Darrick Cao Performed by: Comment Normal [facility] Comment on above: Result Comment: Solange Ann, Office Receptionist (ASCP) Performed at: WB Performed By: #### [id number] ####[facility] [address] [place], [place] [id number] Cao QC reviewed by: Comment Normal [facility] Comment on above: Result Comment: Navi Rush, Supervisory Office Receptionist (ASCP) Performed at: WB Performed By: #### [id number] ####[facility] [address] [place], [place] [address]DrMiguel Cao Specimen adequacy: Comment Normal [facility] Comment on above: Result Comment: Sati sfactory for evaluation. Endocervical and/or squamous metaplastic cells (endocervical component) are present. Performed at: WB Performed By: #### [id number] ####[facility] [address] [place] [id number]. Darrick Cao US PELVIS AND TRANSVAGon US PELVIS AND TRANSVAG EXAMINATION: US P MARTIN AND TRANSVAG HISTORY: Pelvic and perineal pain [...] ARIELA SCHWAB Date: 2022-06-13 14:50 Normal [facility] ACID FAST SMEAR AND CXon Acid Fast Culture Negative Normal [facility] Comment on above: Result Comment: No a liliya fast bacilli isolated after 6 weeks. Performed By: #### A FB ####[facility] [address] [place] [id number]. Darrick Cao Acid Fast Smear Negative Normal [facility] Comment on above: Performed By: #### A FB ####[facility] [address] [id number]. Darrick Cao AF[employer] Specimen Processing Tissue Grinding Normal [facility] Comment on above: Performed By: #### A FB ####[facility] [address] [id number]. Darrick Cao FUNGAL CULTUREon 05-23-2022 Fungus (Mycology) Culture Final report Normal [facility] Comment on above: Performed By: #### C XFUN ####[facility] [address] [place] [id number]. Darrick Cao Fungus Stain Final report Normal [facility] Comment on above: Performed By: #### C XFUN ####[facility] [address] [id number]. Darrick Cao Result 1 Comment Normal [facility] Comment on above: Result Comment: MAYE/ Calcofluor preparation: no fungus observed. Performed By: #### C XFUN ####[facility] [address] [address]Dr. Darrick Cao Result Comment: No y east or mold isolated after 4 weeks. WOUND CULTUREon 04-28-2022 Bacteria identified Aer cx Nom (Unsp spec) Final report Normal [facility] Comment on above: Performed By: #### C XWND #### [facility] [address] [address] [address] Darrick Cao Result 1 Comment Normal [facility] Comment on above: Result Comment: No g rowth in 36 - 48 hours. Performed By: #### C XWND #### [facility] [address] [place] [address] Dr. Darrick Cao CULTURE WOUNDon 04-26-2022 CULTURE [...] S F Vancomycin 1 S F Normal [facility] Comment on above: Performed By: #### W OUNDCX ####[facility] [address] [address]Dr. Darrick Cao CBC AUTO DIFFon 04-25-2022 BASO # 0.0 103/ul Normal 0.0-0.1 [facility] Comment on above: Performed By: #### C XWND #### [facility] [address] [address] [address] Darrick Cao Basophils/100 WBC (Bld) 0.5 % Normal 0.2-2.0 [facility] Comment on above: Performed By: #### C XWND #### [facility] [address] [place] [address] Dr. Darrick Cao EO # 0.1 103/ul Normal 0.0-0.7 [facility] Comment on above: Performed By: #### C XWND #### [facility] [address] [place] [address] Dr. Darrick Cao Eosinophils/100 WBC (Bld) 1.1 % Normal 0.9-7.0 [facility] Comment on above: Performed By: #### C XWND #### [facility] [address] [place] [address] Dr. Darrick Cao Erythrocyte distribution width (RBC) [Ratio] 15.8 % Critically high 11.0-15.0 [facility] Comment on above: Performed By: #### C XWND #### [facility] [address] [place] [address] Dr. Darrick Cao Hematocrit (Bld) [Volume fraction] 31.7 % Critically low 36.0-48.0 [facility] Comment on above: Performed By: #### C XWND #### [facility] [address] [place] [address] Dr. Darrick Cao Hemoglobin (Bld) [Mass/Vol] 10.1 g/dL Critically low 12.0-16.0 [facility] Comment on above: Performed By: #### C XWND #### [facility] [address] [place] [address] Dr. Darrick Cao IG # 0.02 10e3/ul Normal 0.00-0.03 [facility] Comment on above: Performed By: #### C XWND #### [facility] [address] [place] [address] Dr. Darrick Cao IG % 0.3 % Normal 0.0-0.5 [facility] Comment on above: Performed By: #### C XWND #### [facility] [address] [place] [address] Dr. Darrick Cao LYMPH # 1.8 103/ul Normal 1.2-3.8 [facility] Comment on above: Performed By: #### C XWND #### [facility] [address] [place] [address] Dr. Darrick Cao Lymphocytes/100 WBC (Bld) 24.3 % Normal 20.5-60.0 [facility] Comment on above: Performed By: #### C XWND #### [facility] [address] [place] [address] Dr. Darrick Cao MANUAL DIFF REQ NO Normal [facility] Comment on above: Performed By: #### C XWND #### [facility] [address] [place] [address] Dr. Darrick Cao MCH (RBC) [Entitic mass] 28.0 pg Normal 26.7-34.0 [facility] Comment on above: Performed By: #### C XWND #### [facility] [address] [place] [address] Dr. Darrick Cao MCHC (RBC) [Mass/Vol] 31.9 g/dL Normal 29.9-35.2 [facility] Comment on above: Performed By: #### C XWND #### [facility] [address] [place] [address] Dr. Darrick Cao MCV (RBC) [Entitic vol] 87.8 fL Normal 81.0-99.0 [facility] Comment on above: Performed By: #### C XWND #### [facility] [address] [place] [address] Dr. Darrick Cao MONO # 0.5 103/ul Normal 0.3-0.8 [facility] Comment on above: Performed By: #### C XWND #### [facility] [address] [place] [address] Dr. Darrick Cao Monocytes/100 WBC (Bld) 7.2 % Normal 1.7-12.0 [facility] Comment on above: Performed By: #### C XWND #### [facility] [address] [place] [address] Dr. Darrick Cao NEUT # 5.0 103/ul Normal 1.4-6.5 [facility] Comment on above: Performed By: #### C XWND #### [facility] [address] [address] [address] Darrick Cao Neutrophils/100 WBC (Bld) 66.6 % Normal 43.0-75.0 [facility] Comment on above: Performed By: #### C XWND #### [facility] [address] [address] [address] Darrick Cao Platelet mean volume (Bld) [Entitic vol] 9.6 fL Normal 9.5-13.5 [facility] Comment on above: Performed By: #### C XWND #### [facility] [address] [place] [address] Dr. Darrick Cao PLT 295 103/ul Normal 150-450 [facility] Comment on above: Performed By: #### C XWND #### [facility] [address] [place] [address] Dr. Darrick Cao RBC 3.61 106/ul Critically low 4.20-5.40 [facility] Comment on above: Performed By: #### C XWND #### [facility] [address] [place] [address] Dr. Darrick Cao WBC 7.5 103/ul Normal 4.0-11.0 [facility] Comment on above: Performed By: #### C XWND #### [facility] [address] [place] [address] Dr. Darrick Cao ER URINE PROFILEon 2 Bilirubin Ql (U) Negative Normal NEGATIVE [facility] Comment on above: Performed By: #### U MICRO, ERUR ####[facility] [address] [place] [address]Dr. Darrick Cao Clarity (U) CLEAR Normal CLEAR [facility] Comment on above: Performed By: #### U MICRO, ERUR ####[facility] [address] [place] [id number]. Darrick Cao Color (U) LT. YELLOW Normal YELLOW [facility] Comment on above: Performed By: #### U MICRO, ERUR ####[facility] [address] [place] [address]Dr. Darrick CHAPA A micrscopic examina tion will be performed if indicated. Normal [facility] Comment on above: Performed By: #### U MICRO, ERUR ####[facility] [address] [place] [address]Dr. Darrick Cao Glucose Ql (U) Negative Normal NEGATIVE [facility] Comment on above: Performed By: #### U MICRO, ERUR ####[facility] [address] [place] [address]Dr. Darrick Cao Hemoglobin Ql (U) SMALL Abnormal NEGATIVE [facility] Comment on above: Performed By: #### U MICRO, ERUR ####[facility] [address] [place], [place] [address]Dr. Darrick Cao Ketones Ql (U) Negative Normal NEGATIVE [facility] Comment on above: Performed By: #### U MICRO, ERUR ####[facility] [address] [place], [place] [address]Dr. Darrick Cao LEUKOCYTES Negative Normal NEGATIVE [facility] Comment on above: Performed By: #### U MICRO, ERUR ####[facility] [address] [place], [place] [address]Dr. Darrick Cao Nitrite Ql (U) Negative Normal NEGATIVE [facility] Comment on above: Performed By: #### U MICRO, ERUR ####[facility] [address] [place], [place] [address]Dr. Darrick Cao pH (U) 6.0 [pH] Normal 5-9 [facility] Comment on above: Performed By: #### U MICRO, ERUR ####[facility] [address] [place], [place] [address]Dr. Darrick Cao SPEC GRAVITY 1.020 Normal 1.005-<=1. 025 [facility] Comment on above: Performed By: #### U MICRO, ERUR ####[facility] [address] [place], [place] [address]Dr. Darrick Cao UA PROTEIN Negative Normal NEGATIVE/ TRACE [facility] Comment on above: Performed By: #### U MICRO, ERUR ####[facility] [address] [place] [address]Dr. Darrick Cao UR MICRO IND INDICATED Normal [facility] Comment on above: Performed By: #### U MICRO, ERUR ####[facility] [address] [place] [address]Dr. Darrick Cao Urobilinogen Qn (U) 0.2 {Larissa'U}/dL Normal 0.2 - 1. 0 [facility] Comment on above: Performed By: #### U MICRO, ERUR ####[facility] [address] [place] [address]DrMiguel Cao POINT OF CARE GLUCOSEon 04-01 Glucose [Mass/Vol] 118 mg/dL Critically high 74-106 [facility] Comment on above: Performed By: #### P OCGLUC ####[facility] [address] [place] [address]Dr. Darrick Cao PROF 14(COMP METB)on 022 Albumin [Mass/Vol] 2.9 g/dL Critically low 3.4-5.0 [facility] Comment on above: Performed By: #### P OCGLUC #### [facility] [address] [address] [address] Darrick Cao Albumin/Globulin [Mass ratio] 0.8 {ratio} Normal [facility] Comment on above: Performed By: #### P OCGLUC #### [facility] [address] [address] [address] Darrick Cao ALP [Catalytic activity/Vol] 113 U/L Normal 46-116 [facility] Comment on above: Performed By: #### P OCGLUC #### [facility] [address] [address] [address] Darrick Cao ALT [Catalytic activity/Vol] 56 U/L Normal 14-59 [facility] Comment on above: Performed By: #### P OCGLUC #### [facility] [address] [address] [address] Darrick Cao Anion gap [Moles/Vol] 8.8 mmol/L Normal [facility] Comment on above: Performed By: #### P OCGLUC #### [facility] [address] [address] [address] Darrick Cao AST [Catalytic activity/Vol] 30 U/L Normal 15-37 [facility] Comment on above: Performed By: #### P OCGLUC #### [facility] [address] [address] [address] Darrick Cao Bilirubin [Mass/Vol] 0.3 mg/dL Normal 0.2-1.0 [facility] Comment on above: Performed By: #### P OCGLUC #### [facility] [address] [address] [address] Darrick Cao Calcium [Mass/Vol] 8.6 mg/dL Normal 8.5-10.1 [facility] Comment on above: Performed By: #### P OCGLUC #### [facility] [address] [place] [address] Dr. Darrick Cao Chloride [Moles/Vol] 105 mmol/L Normal 98-107 [facility] Comment on above: Performed By: #### P OCGLUC #### [facility] [address] [place] [address] Dr. Darrick Cao CO2 [Moles/Vol] 30.4 mmol/L Normal 21.0-32.0 [facility] Comment on above: Performed By: #### P OCGLUC #### [facility] [address] [address] [address] Darrick Cao Creatinine [Mass/Vol] 0.82 mg/dL Normal 0.55-1.02 [facility] Comment on above: Performed By: #### P OCGLUC #### [facility] [address] [place] [address] Dr. Darrick Cao EGFR-AF PALESTINIAN >60 Normal >=60 [facility] Comment on above: Performed By: #### P OCGLUC #### [facility] [address] [place] [address] Dr. Darrick Cao EGFR-NON AF PALESTINIAN >60 Normal >=60 [facility] Comment on above: Performed By: #### P OCGLUC #### [facility] [address] [address] [address] Darrick Cao Globulin (S) [Mass/Vol] 3.6 g/dL Normal [facility] Comment on above: Performed By: #### P OCGLUC #### [facility] [address] [address] [address] Darrick Cao Glucose [Mass/Vol] 103 mg/dL Normal 74-106 [facility] Comment on above: Performed By: #### P OCGLUC #### [facility] [address] [address] [address] Darrick Cao Potassium [Moles/Vol] 4.2 mmol/L Normal 3.5-5.1 [facility] Comment on above: Performed By: #### P OCGLUC #### [facility] [address] [address] [address] Darrick Cao Protein [Mass/Vol] 6.5 g/dL Normal 6.4-8.2 [facility] Comment on above: Performed By: #### P OCGLUC #### [facility] [address] [place] [address] Dr. Darrick Cao Sodium [Moles/Vol] 140 mmol/L Normal 136-145 [facility] Comment on above: Performed By: #### P OCGLUC #### [facility] [address] [address] [address] Darrick Cao Urea nitrogen [Mass/Vol] 11.0 mg/dL Normal 7.0-18.0 [facility] Comment on above: Performed By: #### P OCGLUC #### [facility] [address] [address] [address] Darrick Cao Urea nitrogen/Creatinine [Mass ratio] 13.4 mg/mg Normal [facility] Comment on above: Performed By: #### P OCGLUC #### [facility] [address] [address] [address] Darrick Cao URINE MICROSCOPIC ONLYon 07- 26-2022 BACTERIA NONE SEEN Normal NONE SEEN [facility] Comment on above: Performed By: #### U MICRO, ERUR ####[facility] [address] [place], [place] [address]Dr. Darrick Cao Bacteria identified Cx Nom (U) NOT INDICATED Normal [facility] Comment on above: Performed By: #### U MICRO, ERUR ####[facility] [address] [place] [address]Dr. Darrick Cao CAST NONE SEEN Normal NONE SEEN [facility] Comment on above: Performed By: #### U MICRO, ERUR ####[facility] [address] [place] [address]Dr. Darrick Cao Crystals LM Nom (Urine sed) NONE SEEN Normal NONE SEEN [facility] Comment on above: Performed By: #### U MICRO, ERUR ####[facility] [address] [place], [place] [address]Dr. Darrick Cao Epithelial cells LM Ql (Urine sed) RARE Normal NONE SEEN /RARE [facility] Comment on above: Performed By: #### U MICRO, ERUR ####[facility] [address] [place], [place] [address]Dr. Darrick Cao MUCOUS NONE SEEN Normal NONE SEEN [facility] Comment on above: Performed By: #### U MICRO, ERUR ####[facility] [address] [place] [address]Dr. Darrick Cao RBC 5-10 Abnormal 0-2 [facility] Comment on above: Performed By: #### U MICRO, ERUR ####[facility] [address] [place], [place] [address]Dr. Darrick Cao WBC 0-2 Abnormal NONE SEEN [facility] Comment on above: Performed By: #### U MICRO, ERUR ####[facility] [address] [place], [place] [address]Dr. Darrick Cao XR CHEST 2 Von 04-25-2022 [...] AMY FOWLER Date: 2022-04-25 20:07 Normal [facility] CBC AUTO DIFFon 04-24-2022 BASO # 0.1 103/ul Normal 0.0-0.1 [facility] Comment on above: Performed By: #### P OCGLUC #### [facility] [address] [address] [address] Darrick Cao Basophils/100 WBC (Bld) 0.8 % Normal 0.2-2.0 [facility] Comment on above: Performed By: #### P OCGLUC #### [facility] [address] [address] [address] Darrick Cao EO # 0.1 103/ul Normal 0.0-0.7 [facility] Comment on above: Performed By: #### P OCGLUC #### [facility] [address] [address] [address] Darrick Cao Eosinophils/100 WBC (Bld) 1.9 % Normal 0.9-7.0 [facility] Comment on above: Performed By: #### P OCGLUC #### [facility] [address] [place] [address] Dr. Darrick Cao Erythrocyte distribution width (RBC) [Ratio] 15.6 % Critically high 11.0-15.0 [facility] Comment on above: Performed By: #### P OCGLUC #### [facility] [address] [address] [address] Darrick Cao Hematocrit (Bld) [Volume fraction] 35.4 % Critically low 36.0-48.0 [facility] Comment on above: Performed By: #### P OCGLUC #### [facility] [address] [address] [address] Darrick Cao Hemoglobin (Bld) [Mass/Vol] 11.4 g/dL Critically low 12.0-16.0 [facility] Comment on above: Performed By: #### P OCGLUC #### [facility] [address] [address] [address] Darrick Cao IG # 0.02 10e3/ul Normal 0.00-0.03 [facility] Comment on above: Performed By: #### P OCGLUC #### [facility] [address] [place] [address] Dr. Darrick Cao IG % 0.3 % Normal 0.0-0.5 [facility] Comment on above: Performed By: #### P OCGLUC #### [facility] [address] [address] [address] Darrick Cao LYMPH # 1.9 103/ul Normal 1.2-3.8 [facility] Comment on above: Performed By: #### P OCGLUC #### [facility] [address] [place] [address] Dr. Darrick Cao Lymphocytes/100 WBC (Bld) 30.2 % Normal 20.5-60.0 [facility] Comment on above: Performed By: #### P OCGLUC #### [facility] [address] [place] [address] Dr. Darrick Cao MANUAL DIFF REQ NO Normal [facility] Comment on above: Performed By: #### P OCGLUC #### [facility] [address] [place] [address] Dr. Darrick Cao MCH (RBC) [Entitic mass] 27.9 pg Normal 26.7-34.0 [facility] Comment on above: Performed By: #### P OCGLUC #### [facility] [address] [place] [address] Dr. Darrick Cao MCHC (RBC) [Mass/Vol] 32.2 g/dL Normal 29.9-35.2 [facility] Comment on above: Performed By: #### P OCGLUC #### [facility] [address] [place] [address] Dr. Darrick Cao MCV (RBC) [Entitic vol] 86.6 fL Normal 81.0-99.0 [facility] Comment on above: Performed By: #### P OCGLUC #### [facility] [address] [address] [address] Darrick Cao MONO # 0.6 103/ul Normal 0.3-0.8 [facility] Comment on above: Performed By: #### P OCGLUC #### [facility] [address] [address] [address] Darrick Cao Monocytes/100 WBC (Bld) 9.0 % Normal 1.7-12.0 [facility] Comment on above: Performed By: #### P OCGLUC #### [facility] [address] [address] [address] Darrick Cao NEUT # 3.7 103/ul Normal 1.4-6.5 [facility] Comment on above: Performed By: #### P OCGLUC #### [facility] [address] [place] [address] Dr. Darrick Cao Neutrophils/100 WBC (Bld) 57.8 % Normal 43.0-75.0 [facility] Comment on above: Performed By: #### P OCGLUC #### [facility] [address] [address] [address] Darrick Cao Platelet mean volume (Bld) [Entitic vol] 9.5 fL Normal 9.5-13.5 [facility] Comment on above: Performed By: #### P OCGLUC #### [facility] [address] [place] [address] Dr. Darrick Cao PLT 256 103/ul Normal 150-450 [facility] Comment on above: Performed By: #### P OCGLUC #### [facility] [address] [address] [address] Darrick Cao RBC 4.09 106/ul Critically low 4.20-5.40 [facility] Comment on above: Performed By: #### P OCGLUC #### [facility] [address] [address] [address] Darrick Cao WBC 6.3 103/ul Normal 4.0-11.0 [facility] Comment on above: Performed By: #### P OCGLUC #### [facility] [address] [address] [address] Darrick SOLOMON STAINon 04-24-2022 COMMENTS NO ORGANISMS OBSERVED Normal [facility] Comment on above: Performed By: #### C XWND #### [facility] [address] [address] [address] Darrick Cao DIPHTHEROIDS Normal [facility] Comment on above: Performed By: #### C XWND #### [facility] [address] [address] [address] Darrick Cao EPITHELIALS Normal [facility] Comment on above: Performed By: #### C XWND #### [facility] [address] [address] [address] Darrick Cao FUNGAL ELEMENTS Normal [facility] Comment on above: Performed By: #### C XWND #### [facility] [address] [place] [address] Dr. Darrick SOLOMON NEG BACILLI Normal [facility] Comment on above: Performed By: #### C XWND #### [facility] [address] [address] [address] Darrick SOLOMON NEG DIPPLOCOCCI Normal [facility] Comment on above: Performed By: #### C XWND #### [facility] [address] [place] [address] Dr. Darrick SOLOMON POS BACILLI Normal [facility] Comment on above: Performed By: #### C XWND #### [facility] [address] [place] [address] Dr. Darrick Cao GRAM POSITIVE COCCI Normal [facility] Comment on above: Performed By: #### C XWND #### [facility] [address] [address] [address] Darrick Cao GRAM STAIN SOURCE Post irrigation left foot Normal [facility] Comment on above: Performed By: #### C XWND #### [facility] [address] [place] [address] Dr. Darrick Cao GS_DIPTH [facility] Comment on above: Performed By: #### C XWND #### [facility] [address] [address] [address] Darrick Cao WBC NONE SEEN Normal [facility] Comment on above: Performed By: #### C XWND #### [facility] [address] [address] [address] Darrick Cao POINT OF CARE GLUCOSEon 04-01 Glucose [Mass/Vol] 132 mg/dL Critically high 74-106 [facility] Comment on above: Performed By: #### P OCGLUC #### [facility] [address] [address] [address] Darrick Cao Glucose [Mass/Vol] 105 mg/dL Normal 74-106 [facility] Comment on above: Performed By: #### P OCGLUC ####[facility] [address] [address]Dr. Darrick Cao PROF 14(COMP METB)on 022 Albumin [Mass/Vol] 2.9 g/dL Critically low 3.4-5.0 [facility] Comment on above: Performed By: #### P OCGLUC #### [facility] [address] [address] [address] Darrick Cao Albumin/Globulin [Mass ratio] 0.8 {ratio} Normal [facility] Comment on above: Performed By: #### P OCGLUC #### [facility] [address] [address] [address] Darrick Cao ALP [Catalytic activity/Vol] 122 U/L Critically high 46-116 [facility] Comment on above: Performed By: #### P OCGLUC #### [facility] [address] [address] [address] Darrick Cao ALT [Catalytic activity/Vol] 65 U/L Critically high 14-59 [facility] Comment on above: Performed By: #### P OCGLUC #### [facility] [address] [address] [address] Darrick Cao Anion gap [Moles/Vol] 12.2 mmol/L Normal [facility] Comment on above: Performed By: #### P OCGLUC #### [facility] [address] [address] [address] Darrick Cao AST [Catalytic activity/Vol] 28 U/L Normal 15-37 [facility] Comment on above: Performed By: #### P OCGLUC #### [facility] [address] [address] [address] Darrick Cao Bilirubin [Mass/Vol] 0.3 mg/dL Normal 0.2-1.0 [facility] Comment on above: Performed By: #### P OCGLUC #### [facility] [address] [address] [address] Darrick Cao Calcium [Mass/Vol] 8.5 mg/dL Normal 8.5-10.1 [facility] Comment on above: Performed By: #### P OCGLUC #### [facility] [address] [address] [address] Darrick Cao Chloride [Moles/Vol] 107 mmol/L Normal 98-107 [facility] Comment on above: Performed By: #### P OCGLUC #### [facility] [address] [address] [address] Darrick Cao CO2 [Moles/Vol] 25.9 mmol/L Normal 21.0-32.0 [facility] Comment on above: Performed By: #### P OCGLUC #### [facility] [address] [address] [address] Darrick Cao Creatinine [Mass/Vol] 0.87 mg/dL Normal 0.55-1.02 [facility] Comment on above: Performed By: #### P OCGLUC #### [facility] [address] [address] [address] Darrick Cao EGFR-AF PALESTINIAN >60 Normal >=60 [facility] Comment on above: Performed By: #### P OCGLUC #### [facility] [address] [address] [address] Darrick Cao EGFR-NON AF PALESTINIAN >60 Normal >=60 [facility] Comment on above: Performed By: #### P OCGLUC #### [facility] [address] [address] [address] Darrick Cao Globulin (S) [Mass/Vol] 3.8 g/dL Normal [facility] Comment on above: Performed By: #### P OCGLUC #### [facility] [address] [address] [address] Darrick Cao Glucose [Mass/Vol] 107 mg/dL Critically high 74-106 [facility] Comment on above: Performed By: #### P OCGLUC #### [facility] [address] [address] [address] Darrick Cao Potassium [Moles/Vol] 4.1 mmol/L Normal 3.5-5.1 [facility] Comment on above: Performed By: #### P OCGLUC #### [facility] [address] [address] [address] Darrick Cao Protein [Mass/Vol] 6.7 g/dL Normal 6.4-8.2 [facility] Comment on above: Performed By: #### P OCGLUC #### [facility] [address] [address] [address] Darrick Cao Sodium [Moles/Vol] 141 mmol/L Normal 136-145 [facility] Comment on above: Performed By: #### P OCGLUC #### [facility] [address] [place] [address] Dr. Darrick Cao Urea nitrogen [Mass/Vol] 10.0 mg/dL Normal 7.0-18.0 [facility] Comment on above: Performed By: #### P OCGLUC #### [facility] [address] [address] [address] Darrick Cao Urea nitrogen/Creatinine [Mass ratio] 11.5 mg/mg Normal [facility] Comment on above: Performed By: #### P OCGLUC #### [facility] [address] [place] [address] Dr. Darrick Cao VANCOMYCIN TROUGHon 04-24-20 VANCOMYCIN TROUGH 9.6 ug/ml Normal 5.0-20.0 [facility] Comment on above: Performed By: #### V ANCT #### [facility] [address] [place] [address] Dr. Darrick Cao CBC AUTO DIFFon 04-23-2022 BASO # 0.1 103/ul Normal 0.0-0.1 [facility] Comment on above: Performed By: #### C XWND #### [facility] [address] [address] [address] Darrick Cao Basophils/100 WBC (Bld) 0.6 % Normal 0.2-2.0 [facility] Comment on above: Performed By: #### C XWND #### [facility] [address] [address] [address] Darrick Cao EO # 0.1 103/ul Normal 0.0-0.7 [facility] Comment on above: Performed By: #### C XWND #### [facility] [address] [place] [address] Dr. Darrick Cao Eosinophils/100 WBC (Bld) 0.6 % Critically low 0.9-7.0 [facility] Comment on above: Performed By: #### C XWND #### [facility] [address] [place] [address] Dr. Darrick Cao Erythrocyte distribution width (RBC) [Ratio] 15.8 % Critically high 11.0-15.0 [facility] Comment on above: Performed By: #### C XWND #### [facility] [address] [place] [address] Dr. Darrick Cao Hematocrit (Bld) [Volume fraction] 34.0 % Critically low 36.0-48.0 [facility] Comment on above: Performed By: #### C XWND #### [facility] [address] [place] [address] Dr. Darrick Cao Hemoglobin (Bld) [Mass/Vol] 11.0 g/dL Critically low 12.0-16.0 [facility] Comment on above: Performed By: #### C XWND #### [facility] [address] [place] [address] Dr. Darrick Cao IG # 0.03 10e3/ul Normal 0.00-0.03 [facility] Comment on above: Performed By: #### C XWND #### [facility] [address] [address] [address] Darrick Cao IG % 0.4 % Normal 0.0-0.5 [facility] Comment on above: Performed By: #### C XWND #### [facility] [address] [address] [address] Darrick Cao LYMPH # 1.6 103/ul Normal 1.2-3.8 [facility] Comment on above: Performed By: #### C XWND #### [facility] [address] [address] [address] Darrick Cao Lymphocytes/100 WBC (Bld) 19.6 % Critically low 20.5-60.0 [facility] Comment on above: Performed By: #### C XWND #### [facility] [address] [place] [address] Dr. Darrick Cao MANUAL DIFF REQ NO Normal [facility] Comment on above: Performed By: #### C XWND #### [facility] [address] [place] [address] Dr. Darrick Cao MCH (RBC) [Entitic mass] 28.1 pg Normal 26.7-34.0 [facility] Comment on above: Performed By: #### C XWND #### [facility] [address] [place] [address] Dr. Darrick Cao MCHC (RBC) [Mass/Vol] 32.4 g/dL Normal 29.9-35.2 [facility] Comment on above: Performed By: #### C XWND #### [facility] [address] [place] [address] Dr. Darrick Cao MCV (RBC) [Entitic vol] 87.0 fL Normal 81.0-99.0 [facility] Comment on above: Performed By: #### C XWND #### [facility] [address] [place] [address] Dr. Darrick Cao MONO # 0.8 103/ul Normal 0.3-0.8 [facility] Comment on above: Performed By: #### C XWND #### [facility] [address] [address] [address] Darrick Cao Monocytes/100 WBC (Bld) 10.3 % Normal 1.7-12.0 [facility] Comment on above: Performed By: #### C XWND #### [facility] [address] [address] [address] Darrick Cao NEUT # 5.4 103/ul Normal 1.4-6.5 [facility] Comment on above: Performed By: #### C XWND #### [facility] [address] [address] [address] Darrick Cao Neutrophils/100 WBC (Bld) 68.5 % Normal 43.0-75.0 [facility] Comment on above: Performed By: #### C XWND #### [facility] [address] [place] [address] Dr. Darrick Cao Platelet mean volume (Bld) [Entitic vol] 9.9 fL Normal 9.5-13.5 [facility] Comment on above: Performed By: #### C XWND #### [facility] [address] [place] [address] Dr. Darrick Cao PLT 276 103/ul Normal 150-450 [facility] Comment on above: Performed By: #### C XWND #### [facility] [address] [address] [address] Darrick Cao RBC 3.91 106/ul Critically low 4.20-5.40 [facility] Comment on above: Performed By: #### C XWND #### [facility] [address] [address] [address] Darrick Cao WBC 7.9 103/ul Normal 4.0-11.0 [facility] Comment on above: Performed By: #### C XWND #### [facility] [address] [place] [address] Dr. Darrick Cao POINT OF CARE GLUCOSEon 07-2 Glucose [Mass/Vol] 138 mg/dL Critically high 74-106 [facility] Comment on above: Performed By: #### P OCGLUC ####[facility] [address] [id number] Darrick Cao Glucose [Mass/Vol] 151 mg/dL Critically high 74-106 [facility] Comment on above: Performed By: #### P OCGLUC #### [facility] [address] [address] [address] Darrick Cao Glucose [Mass/Vol] 141 mg/dL Critically high 74-106 [facility] Comment on above: Performed By: #### P OCGLUC ####[facility] [address] [id number] Darrick Cao PROF 14(COMP METB)on 022 Albumin [Mass/Vol] 3.0 g/dL Critically low 3.4-5.0 [facility] Comment on above: Performed By: #### C XWND #### [facility] [address] [address] [address] Darrick Cao Albumin/Globulin [Mass ratio] 0.9 {ratio} Normal [facility] Comment on above: Performed By: #### C XWND #### [facility] [address] [address] [address] Darrick Cao ALP [Catalytic activity/Vol] 128 U/L Critically high 46-116 [facility] Comment on above: Performed By: #### C XWND #### [facility] [address] [address] [address] Darrick Cao ALT [Catalytic activity/Vol] 71 U/L Critically high 14-59 [facility] Comment on above: Performed By: #### C XWND #### [facility] [address] [address] [address] Darrick Cao Anion gap [Moles/Vol] 13.1 mmol/L Normal [facility] Comment on above: Performed By: #### C XWND #### [facility] [address] [address] [address] Darrick Cao AST [Catalytic activity/Vol] 50 U/L Critically high 15-37 [facility] Comment on above: Performed By: #### C XWND #### [facility] [address] [place] [address] Dr. Darrick Cao Bilirubin [Mass/Vol] 0.3 mg/dL Normal 0.2-1.0 [facility] Comment on above: Performed By: #### C XWND #### [facility] [address] [place] [address] Dr. Darrick Cao Calcium [Mass/Vol] 8.2 mg/dL Critically low 8.5-10.1 [facility] Comment on above: Performed By: #### C XWND #### [facility] [address] [place] [address] Dr. Darrick Cao Chloride [Moles/Vol] 110 mmol/L Critically high 98-107 [facility] Comment on above: Performed By: #### C XWND #### [facility] [address] [place] [address] Dr. Darrick Cao CO2 [Moles/Vol] 23.4 mmol/L Normal 21.0-32.0 [facility] Comment on above: Performed By: #### C XWND #### [facility] [address] [place] [address] Dr. Darrick Cao Creatinine [Mass/Vol] 0.96 mg/dL Normal 0.55-1.02 [facility] Comment on above: Performed By: #### C XWND #### [facility] [address] [place] [address] Dr. Darrick Cao EGFR-AF PALESTINIAN >60 Normal >=60 [facility] Comment on above: Performed By: #### C XWND #### [facility] [address] [place] [address] Dr. Darrick Cao EGFR-NON AF PALESTINIAN 59 mL/min/1.73m2 Critically low >=60 [facility] Comment on above: Performed By: #### C XWND #### [facility] [address] [place] [address] Dr. Darrick Cao Globulin (S) [Mass/Vol] 3.3 g/dL Normal [facility] Comment on above: Performed By: #### C XWND #### [facility] [address] [place] [address] Dr. Darrick Cao Glucose [Mass/Vol] 116 mg/dL Critically high 74-106 [facility] Comment on above: Performed By: #### C XWND #### [facility] [address] [place] [address] Dr. Darrick Cao Potassium [Moles/Vol] 4.5 mmol/L Normal 3.5-5.1 [facility] Comment on above: Performed By: #### C XWND #### [facility] [address] [place] [address] Dr. Darrick Cao Protein [Mass/Vol] 6.3 g/dL Critically low 6.4-8.2 [facility] Comment on above: Performed By: #### C XWND #### [facility] [address] [place] [address] Dr. Darrick Cao Sodium [Moles/Vol] 142 mmol/L Normal 136-145 [facility] Comment on above: Performed By: #### C XWND #### [facility] [address] [place] [address] Dr. Darrick Cao Urea nitrogen [Mass/Vol] 14.0 mg/dL Normal 7.0-18.0 [facility] Comment on above: Performed By: #### C XWND #### [facility] [address] [place] [address] Dr. Darrick Cao Urea nitrogen/Creatinine [Mass ratio] 14.6 mg/mg Normal [facility] Comment on above: Performed By: #### C XWND #### [facility] [address] [place] [address] Dr. Darrick Cao CBC AUTO DIFFon 04-22-2022 BASO # 0.1 103/ul Normal 0.0-0.1 [facility] Comment on above: Performed By: #### C BC #### [facility] [address] [place] [address] Dr. Darrick Cao Basophils/100 WBC (Bld) 0.7 % Normal 0.2-2.0 [facility] Comment on above: Performed By: #### C BC #### [facility] [address] [place] [address] Dr. Darrick Cao EO # 0.1 103/ul Normal 0.0-0.7 [facility] Comment on above: Performed By: #### C BC #### [facility] [address] [place] [address] Dr. Darrick Cao Eosinophils/100 WBC (Bld) 0.5 % Critically low 0.9-7.0 [facility] Comment on above: Performed By: #### C BC #### [facility] [address] [place] [address] Dr. Darrick Cao Erythrocyte distribution width (RBC) [Ratio] 15.8 % Critically high 11.0-15.0 [facility] Comment on above: Performed By: #### C BC #### [facility] [address] [place] [address] Dr. Darrick Cao Hematocrit (Bld) [Volume fraction] 39.8 % Normal 36.0-48.0 [facility] Comment on above: Performed By: #### C BC #### [facility] [address] [place] [address] Dr. Darrick Cao Hemoglobin (Bld) [Mass/Vol] 12.9 g/dL Normal 12.0-16.0 [facility] Comment on above: Performed By: #### C BC #### [facility] [address] [place] [address] Dr. Darrick Cao IG # 0.03 10e3/ul Normal 0.00-0.03 [facility] Comment on above: Performed By: #### C BC #### [facility] [address] [place] [address] Dr. Darrick Cao IG % 0.3 % Normal 0.0-0.5 [facility] Comment on above: Performed By: #### C BC #### [facility] [address] [place] [address] Dr. Darrick Cao LYMPH # 1.6 103/ul Normal 1.2-3.8 [facility] Comment on above: Performed By: #### C BC #### [facility] [address] [place] [address] Dr. Darrick Cao Lymphocytes/100 WBC (Bld) 16.0 % Critically low 20.5-60.0 [facility] Comment on above: Performed By: #### C BC #### [facility] [address] [place] [address] Dr. Darrick Cao MANUAL DIFF REQ NO Normal [facility] Comment on above: Performed By: #### C BC #### [facility] [address] [place] [address] Dr. Darrick Cao MCH (RBC) [Entitic mass] 28.2 pg Normal 26.7-34.0 [facility] Comment on above: Performed By: #### C BC #### [facility] [address] [place] [address] Dr. Darrick Cao MCHC (RBC) [Mass/Vol] 32.4 g/dL Normal 29.9-35.2 [facility] Comment on above: Performed By: #### C BC #### [facility] [address] [place] [address] Dr. Darrick Cao MCV (RBC) [Entitic vol] 86.9 fL Normal 81.0-99.0 [facility] Comment on above: Performed By: #### C BC #### [facility] [address] [place] [address] Dr. Darrick Cao MONO # 0.9 103/ul Critically high 0.3-0.8 [facility] Comment on above: Performed By: #### C BC #### [facility] [address] [place] [address] Dr. Darrick Cao Monocytes/100 WBC (Bld) 8.7 % Normal 1.7-12.0 [facility] Comment on above: Performed By: #### C BC #### [facility] [address] [place] [address] Dr. Darrick Cao NEUT # 7.5 103/ul Critically high 1.4-6.5 [facility] Comment on above: Performed By: #### C BC #### [facility] [address] [place] [address] Dr. Darrick Cao Neutrophils/100 WBC (Bld) 73.8 % Normal 43.0-75.0 [facility] Comment on above: Performed By: #### C BC #### [facility] [address] [place] [address] Dr. Darrick Cao Platelet mean volume (Bld) [Entitic vol] 9.3 fL Critically low 9.5-13.5 [facility] Comment on above: Performed By: #### C BC #### [facility] [address] [place] [address] Dr. Darrick Cao PLT 345 103/ul Normal 150-450 [facility] Comment on above: Performed By: #### C BC #### [facility] [address] [place] [address] Dr. Darrick Cao RBC 4.58 106/ul Normal 4.20-5.40 [facility] Comment on above: Performed By: #### C BC #### [facility] [address] [place] [address] Dr. Darrick Cao WBC 10.1 103/ul Normal 4.0-11.0 [facility] Comment on above: Performed By: #### C BC #### [facility] [address] [place] [address] Dr. Darrick Cao CRPon 04-22-2022 CRP 5.2 mg/dL Critically high <=1.0 [facility] Comment on above: Performed By: #### B MP, CRP ####[facility] [address] [address]Dr. Darrick Cao CULTURE BLOODon 04-22-2022 Microscopic examination of blood, culture Culture Observations: NO GROWTH AT 5 DAYS. Normal [facility] Comment on above: Performed By: #### B LDCX2 #### [facility] [address] [place] [address] Dr. Darrick Cao Microscopic examination of blood, culture Culture Observations: NO GROWTH AT 5 DAYS. Normal [facility] Comment on above: Performed By: #### B LDCX1 #### [facility] [address] [place] [address] Dr. Darrick Cao Covid-19 PCR ([facility])on 04-01 SARS-CoV-2 (COVID-19) RNA ALEKSANDR+probe Ql (Unsp spec) Not detected Normal NOT DETECTED [facility] Comment on above: Result Comment: When [...] for this test is supported by the [place] [employer] and Human Service's declaration that [...] used). Performed By: #### P OCGLUC #### [facility] [address] [place] [id number] [address] Darrick Cao LACTATE/LACTIC ACIDon 2021 Lactate [Moles/Vol] 1.3 mmol/L Normal 0.4-1.9 [facility] Comment on above: Performed By: #### P OCGLUC #### [facility] [address] [place] [address] [address] Darrick Cao POINT OF CARE GLUCOSEon 04-01 Glucose [Mass/Vol] 96 mg/dL Normal 74-106 [facility] Comment on above: Performed By: #### P OCGLUC #### [facility] [address] [place] [id number] [address] Darrick Cao PROF CHEM 8 (BAS METB)on Anion gap [Moles/Vol] 12.3 mmol/L Normal [facility] Comment on above: Performed By: #### B MP, CRP ####[facility] [address] [address]Dr. Darrick Cao Calcium [Mass/Vol] 9.2 mg/dL Normal 8.5-10.1 [facility] Comment on above: Performed By: #### B MP, CRP ####[facility] [address] [address]Dr. Darrick Cao Chloride [Moles/Vol] 104 mmol/L Normal 98-107 [facility] Comment on above: Performed By: #### B MP, CRP ####[facility] [address] [place], [place] [address]Dr. Darrick Cao CO2 [Moles/Vol] 26.4 mmol/L Normal 21.0-32.0 [facility] Comment on above: Performed By: #### B MP, CRP ####[facility] [address] [place], [place] [address]Dr. Darrick Cao Creatinine [Mass/Vol] 1.19 mg/dL Critically high 0.55-1.02 [facility] Comment on above: Performed By: #### B MP, CRP ####[facility] [address] [place], [place] [address]Dr. Darrick Cao EGFR-AF PALESTINIAN 56 mL/min/1.73m2 Critically low >=60 [facility] Comment on above: Performed By: #### B MP, CRP ####[facility] [address] [place], [place] [address]Dr. Darrick Cao EGFR-NON AF PALESTINIAN 46 mL/min/1.73m2 Critically low >=60 [facility] Comment on above: Performed By: #### B MP, CRP ####[facility] [address] [place], [place] [address]Dr. Darrick Cao Glucose [Mass/Vol] 124 mg/dL Critically high 74-106 [facility] Comment on above: Performed By: #### B MP, CRP ####[facility] [address] [place], [place] [address]Gb. Darrick Cao Potassium [Moles/Vol] 4.7 mmol/L Normal 3.5-5.1 [facility] Comment on above: Performed By: #### B MP, CRP ####[facility] [address] [place], [place] [address]Gi. Darrick Cao Sodium [Moles/Vol] 138 mmol/L Normal 136-145 [facility] Comment on above: Performed By: #### B MP, CRP ####[facility] [address] [place], [place] [address]Ci. Darrick Cao Urea nitrogen [Mass/Vol] 21.0 mg/dL Critically high 7.0-18.0 [facility] Comment on above: Performed By: #### B MP, CRP ####[facility] [address] [place], [place] [address]Oj. Darrick Cao Urea nitrogen/Creatinine [Mass ratio] 17.6 mg/mg Normal [facility] Comment on above: Performed By: #### B MP, CRP ####[facility] [address] [place], [place] [address]Af. Darrick Cao SED RATE [facility] 2021 SED RATE 64 mm/hr Critically high <=30 [facility] Comment on above: Performed By: #### P OCGLUC #### [facility] [address] [place], [place] [address] ANKLE LT WO [...] SHAWNEE KELLY Date: 2022-03-11 10:18 Normal [facility] COVID Quick Testingon 2020 Result Negative [facility] Other Operative Reporton Operative Report MR#: [id number] [facility] Pt. Name: Nicol Knowles Room #: 0C Discharge Date: Birthdate: 1960 OPERATIVE REPORT DATE OF SURGERY: 12/16/2020 SURGEON: David Lr M.D. PREOPERATIVE DIAGNOSIS: Trigger digits, right long finger and thumb. POSTOPERATIVE DIAGNOSIS: Trigger digits, right long finger and thumb. PROCEDURE: A1 leigha release, right long finger and thumb. BLENDER / COOK: Hay Mast M.D. ANESTHESIA: MAC. INDICATION FOR [...] Lr M.D. Date Trans: 12/16/2020 09:13 A/braxton SANTILLAN_JN:[id number] cc: Waqas Pierce M.D. [address] [place] [id number] Normal [facility] POC GLUCOSE LABon 12-16-2020 Glucose [Mass/Vol] 103 mg/dL High 70-100 [facility] Comment on above: Performed By: #### [id number] #### [facility] [address] Vital Signs Date Time Vital Sign Value Performing Clinician Facility 08-04-2024 10:48-0500 Body height 170.18 cm [facility] 08-04-2024 10:48-0500 Body mass index (BMI) [Ratio] 44.8 kg/m2 [facility] 08-04-2024 10:48-0500 Body weight 129.72 kg [facility] 08-04-2024 10:48-0500 Diastolic blood pressure 84 mm[Hg] [facility] 08-04-2024 10:48-0500 Heart rate 82 /min [facility] 08-04-2024 10:48-0500 Systolic blood pressure 128 mm[Hg] [facility] 06-19-2024 12:54-0400 Body mass index (BMI) [Ratio] 47.9 kg/m2 [facility] 06-19-2024 11:16-0400 Body height 170.18 cm [facility] 06-19-2024 11:16-0400 Body weight 129 kg [facility] 06-16-2024 09:58-0400 Body height 170.18 cm [facility] 06-16-2024 09:58-0400 Body mass index (BMI) [Ratio] 44.9 kg/m2 [facility] 06-16-2024 09:58-0400 Body weight 130.18 kg [facility] 06-16-2024 09:58-0400 Diastolic blood pressure 75 mm[Hg] [facility] 06-16-2024 09:58-0400 Heart rate 83 /min [facility] 06-16-2024 09:58-0400 Systolic blood pressure 114 mm[Hg] [facility] 05-23-2024 10:46-0400 Body mass index (BMI) [Ratio] 47.9 kg/m2 [facility] 05-23-2024 09:49-0400 Body height 170.18 cm [facility] 05-23-2024 09:49-0400 Body weight 127.45 kg [facility] 02-21-2024 10:03-0400 Body height 170.18 cm MD Waqas Pierce Work Phone: [facility] 02-21-2024 10:03-0400 Body mass index (BMI) [Ratio] 42.3 kg/m2 MD Waqas Pierce Work Phone: [facility] 02-21-2024 10:03-0400 Body weight 122.49 kg MD Waqas Pierce Work Phone: [facility] 02-21-2024 10:03-0400 Diastolic blood pressure 88 mm[Hg] MD Waqas Pierce Work Phone: [facility] 02-21-2024 10:03-0400 Heart rate 85 /min MD Waqas Pierce Work Phone: [facility] 02-21-2024 10:03-0400 Respiratory rate 18 /min MD Waqas Pierce Work Phone: [facility] 02-21-2024 10:03-0400 SaO2% (BldA) [Mass fraction] 97 % MD Waqas Pierce Work Phone: [facility] 02-21-2024 10:03-0400 Systolic blood pressure 142 mm[Hg] MD Waqas Pierce Work Phone: [facility] 01-15-2024 10:50-0400 Body height 170.18 cm [facility] 01-15-2024 10:50-0400 Body mass index (BMI) [Ratio] 47.9 kg/m2 [facility] 01-15-2024 10:50-0400 Body weight 138.88 kg [facility] 01-10-2024 09:49-0400 Body mass index (BMI) [Ratio] 47.9 kg/m2 MD Waqas Pierce Work Phone: [facility] 01-10-2024 08:37-0400 Body height 170.18 cm MD Waqas Pierce Work Phone: [facility] 01-10-2024 08:37-0400 Body weight 117.02 kg MD Waqas Pierce Work Phone: [facility] 01-03-2024 10:52-0400 Body height 170.18 cm MD Waqas Pierce Work Phone: [facility] 01-03-2024 10:52-0400 Body mass index (BMI) [Ratio] 39.8 kg/m2 MD Waqas Pierce Work Phone: [facility] 01-03-2024 10:52-0400 Body weight 115.41 kg MD Waqas Pierce Work Phone: [facility] 01-03-2024 10:52-0400 Diastolic blood pressure 89 mm[Hg] MD Waqas Pierce Work Phone: [facility] 01-03-2024 10:52-0400 Heart rate 87 /min MD Waqas Pierce Work Phone: [facility] 01-03-2024 10:52-0400 Respiratory rate 18 /min MD Waqas Pierce Work Phone: [facility] 01-03-2024 10:52-0400 SaO2% (BldA) [Mass fraction] 99 % MD Waqas Pierce Work Phone: [facility] 01-03-2024 10:52-0400 Systolic blood pressure 128 mm[Hg] MD Waqas Pierce Work Phone: [facility] 12-10-2023 11:39-0400 Body mass index (BMI) [Ratio] 47.9 kg/m2 MD Waqas Pierce Work Phone: [facility] 12-10-2023 10:57-0400 Body height 170.18 cm MD Waqas Pierce Work Phone: [facility] 12-10-2023 10:57-0400 Body weight 117.02 kg MD Waqas Pierce Work Phone: [facility] 02-22-2024 10:59-0500 Body height 170.18 cm [facility] 11-22-2023 10:59-0500 Body mass index (BMI) [Ratio] 41.1 kg/m2 [facility] 11-22-2023 10:59-0500 Body weight 119.01 kg [facility] 11-22-2023 10:59-0500 Diastolic blood pressure 84 mm[Hg] [facility] 11-22-2023 10:59-0500 Heart rate 72 /min [facility] 11-22-2023 10:59-0500 Respiratory rate 18 /min [facility] 11-22-2023 10:59-0500 SaO2% (BldA) [Mass fraction] 99 % [facility] 11-22-2023 10:59-0500 Systolic blood pressure 132 mm[Hg] [facility] 11-21-2023 09:48-0500 Body height 170.18 cm [facility] 11-21-2023 09:48-0500 Body mass index (BMI) [Ratio] 40.7 kg/m2 [facility] 11-21-2023 09:48-0500 Body temperature 98.2 [degF] [facility] 11-21-2023 09:48-0500 Body weight 117.99 kg [facility] 11-21-2023 09:48-0500 Diastolic blood pressure 82 mm[Hg] [facility] 11-21-2023 09:48-0500 Heart rate 105 /min [facility] 11-21-2023 09:48-0500 Systolic blood pressure 131 mm[Hg] [facility] 11-19-2023 09:52-0500 Body height 170.18 cm [facility] 11-19-2023 09:52-0500 Body mass index (BMI) [Ratio] 40.8 kg/m2 [facility] 11-19-2023 09:52-0500 Body weight 118.38 kg [facility] 11-01-2023 11:15-0500 Body height 170.18 cm Waqas Pierce Other [facility] 11-01-2023 11:15-0500 Body mass index (BMI) [Ratio] 40.75 kg/m2 Waqas Pierce Other [facility] [employer] Other 11-01-2023 11:15-0500 Body weight 118.03 kg Waqas Pierce Other [facility] Other 11-01-2023 11:15-0500 Body weight 118.02 kg [facility] 11-01-2023 11:15-0500 Diastolic blood pressure 87 mm[Hg] Waqas Pierce Other [facility] 11-01-2023 11:15-0500 Systolic blood pressure 127 mm[Hg] Waqas Pierce Other [facility] 10-15-2023 10:00-0500 Body height 170.18 cm Grecia Fitt Other [facility] 10-15-2023 10:00-0500 Body mass index (BMI) [Ratio] 40.08 kg/m2 Grecia Fitt Other [facility] [employer] Other 10-15-2023 10:00-0500 Body weight 116.08 kg Grecia Fitt Other [facility] Other 10-15-2023 10:00-0500 Body weight 116.07 kg [facility] 09-18-2023 11:00-0500 Body height 170.18 cm Rolando Castellanos Other [facility] 09-18-2023 11:00-0500 Body mass index (BMI) [Ratio] 40.45 kg/m2 Rolandotimothy Reyesdiff Other [facility] Other 09-18-2023 11:00-0500 Body weight 117.16 kg Rolando Castellanos Other [facility] 09-18-2023 11:00-0500 Diastolic blood pressure 80 mm[Hg] Rolando Reyesdiff Other [facility] 09-18-2023 11:00-0500 Respiratory rate 18 /min Rolando Reyesdiff Other [employer] Other 09-18-2023 11:00-0500 SaO2% (BldA) [Mass fraction] 98 % Rolando Reyesdiff Other [employer] Other 09-18-2023 11:00-0500 Systolic blood pressure 115 mm[Hg] Rolando Reyesdiff Other [facility] 09-17-2023 10:45-0500 Body height 170.18 cm [employer] Other [facility] 09-17-2023 10:45-0500 Body mass index (BMI) [Ratio] 40.65 kg/m2 [employer] Other [facility] [employer] Other 09-17-2023 10:45-0500 Body weight 117.75 kg [employer] Other [facility] 09-03-2023 12:45-0500 Diastolic blood pressure 60 mm[Hg] MD Waqas Pierce Work Phone: [facility] 09-03-2023 12:45-0500 Heart rate 70 /min MD Waqas Pierce Work Phone: [facility] 09-03-2023 12:45-0500 Inhaled oxygen flow rate 1 L/min MD Waqas Pierce Work Phone: [facility] 09-03-2023 12:45-0500 Respiratory rate 16 /min MD Waqas Pierce Work Phone: [facility] 09-03-2023 12:45-0500 SaO2% (BldA) [Mass fraction] 97 % MD Waqas Pierce Work Phone: [facility] 09-03-2023 12:45-0500 Systolic blood pressure 132 mm[Hg] MD Waqas Pierce Work Phone: [facility] 09-03-2023 10:21-0500 Body temperature 98.4 [degF] MD Waqas Pierce Work Phone: [facility] 09-03-2023 07:14-0500 Body height 172.72 cm MD Waqas Pierce Work Phone: [facility] 09-03-2023 07:14-0500 Body mass index (BMI) [Ratio] 39.5 kg/m2 MD Waqas Pierce Work Phone: [facility] 09-03-2023 07:14-0500 Body weight 118 kg MD Waqas Pierce Work Phone: [facility] 08-21-2023 14:30-0500 Body height 170.18 cm Waqas Pierce Other [facility] [employer] Other 08-21-2023 14:30-0500 Body mass index (BMI) [Ratio] 39.46 kg/m2 Waqas Pierce Other [employer] Other 08-21-2023 14:30-0500 Body weight 114.31 kg Waqas Pierce Other [employer] Other 08-21-2023 14:30-0500 Diastolic blood pressure 84 mm[Hg] Waqas Pierce Other [employer] Other 08-21-2023 14:30-0500 Systolic blood pressure 138 mm[Hg] Waqas Pierce Other [employer] Other 08-13-2023 10:45-0500 Body height 170.18 cm Grecia Carrera Other [employer] Other 08-13-2023 10:45-0500 Body mass index (BMI) [Ratio] 41.22 kg/m2 Grecia Fitt Other [employer] Other 08-13-2023 10:45-0500 Body weight 119.39 kg Grecia Fitt Other [employer] Other 07-26-2023 11:30-0400 Body height 170.18 cm Rolando Castellanos Other [employer] Other 07-26-2023 11:30-0400 Body mass index (BMI) [Ratio] 41.86 kg/m2 Rolando Castellanos Other [employer] Other 07-26-2023 11:30-0400 Body weight 121.25 kg Rolando Castellanos Other [employer] Other 07-26-2023 11:30-0400 Diastolic blood pressure 77 mm[Hg] Rolando Castellanos Other [employer] Other 07-26-2023 11:30-0400 Respiratory rate 18 /min Rolando Castellanos Other [employer] Other 07-26-2023 11:30-0400 SaO2% (BldA) [Mass fraction] 98 % Rolando Castellanos Other [employer] Other 07-26-2023 11:30-0400 Systolic blood pressure 121 mm[Hg] Rolando Castellanos Other [employer] Other 07-23-2023 10:45-0400 Body height 170.18 cm Grecia Fitt Other [employer] Other 07-23-2023 10:45-0400 Body mass index (BMI) [Ratio] 41.78 kg/m2 Grecia Fitt Other [employer] Other 07-23-2023 10:45-0400 Body weight 121.02 kg Grecia Fitt Other [facility] Other 06-27-2023 15:15-0400 Body height 170.18 cm David Middlet[place] II Other [employer] Other 06-27-2023 15:15-0400 Body mass index (BMI) [Ratio] 41.97 kg/m2 David Bartolo II Other [employer] Other 06-27-2023 15:15-0400 Body weight 121.56 kg David [place]let[place] II Other [employer] Other 06-18-2023 11:30-0400 Body height 170.18 cm Grecia Fitt Other [employer] Other 06-18-2023 11:30-0400 Body mass index (BMI) [Ratio] 42.52 kg/m2 Grecia Fitt Other [employer] Other 06-18-2023 11:30-0400 Body weight 123.15 kg Grecia Fitt Other [employer] Other 06-14-2023 10:00-0400 Body height 170.18 cm Rolando Castellanos Other [employer] Other 06-14-2023 10:00-0400 Body mass index (BMI) [Ratio] 42.89 kg/m2 Rolando Castellanos Other [employer] Other 06-14-2023 10:00-0400 Body weight 124.24 kg Rolando Castellanos Other [employer] Other 06-14-2023 10:00-0400 Diastolic blood pressure 87 mm[Hg] Rolando Castellanos Other [employer] Other 06-14-2023 10:00-0400 Respiratory rate 18 /min Rolando Castellanos Other [employer] Other 06-14-2023 10:00-0400 SaO2% (BldA) [Mass fraction] 100 % Rolando Castellanos Other [facility] Other 06-14-2023 10:00-0400 Systolic blood pressure 124 mm[Hg] Rolando Castellanos Other [facility] Other 06-11-2023 12:45-0400 Body height 170.18 cm Waqas Pierce Other [employer] Other 06-11-2023 12:45-0400 Body mass index (BMI) [Ratio] 42.41 kg/m2 Waqas Pierce Other [facility] Other 06-11-2023 12:45-0400 Body weight 122.83 kg Waqas Pierce Other [employer] Other 06-11-2023 12:45-0400 Diastolic blood pressure 76 mm[Hg] Waqas Pierce Other [facility] Other 06-11-2023 12:45-0400 Respiratory rate 12 /min Waqas Pierce Other [employer] Other 06-11-2023 12:45-0400 Systolic blood pressure 124 mm[Hg] Waqas Pierce Other [facility] Other 05-14-2023 10:00-0400 Body height 170.18 cm Grecia Fitt Other [facility] Other 05-14-2023 10:00-0400 Body mass index (BMI) [Ratio] 43.05 kg/m2 Grecia Fitt Other [facility] Other 05-14-2023 10:00-0400 Body weight 124.69 kg Grecia Fitt Other [facility] Other 04-16-2023 10:00-0400 Body height 170.18 cm Grecia Fitt Other [facility] Other 04-16-2023 10:00-0400 Body mass index (BMI) [Ratio] 43.94 kg/m2 Grecia Fitt Other [facility] Other 04-16-2023 10:00-0400 Body weight 127.28 kg Grecia Fitt Other [facility] Other 01-11-2023 11:00-0400 Body height 170.18 cm Grecia Fitt Other [facility] Other 01-11-2023 11:00-0400 Body mass index (BMI) [Ratio] 47.37 kg/m2 Grecia Fitt Other [facility] Other 01-11-2023 11:00-0400 Body weight 137.21 kg Grecia Fitt Other [facility] Other 11-16-2022 11:45-0500 Body height 170.18 cm Rolando Castellanos Other [facility] Other 11-16-2022 11:45-0500 Body mass index (BMI) [Ratio] 47 kg/m2 Rolando Castellanos Other [facility] Other 11-16-2022 11:45-0500 Body weight 136.13 kg Rolandotimothy Castellanos Other [facility] Other 11-16-2022 11:45-0500 Diastolic blood pressure 85 mm[Hg] Rolando Castellanos Other [facility] Other 11-16-2022 11:45-0500 Respiratory rate 18 /min Rolando Castellanos Other [employer] Other 11-16-2022 11:45-0500 SaO2% (BldA) [Mass fraction] 97 % Rolandotimothy Castellanos Other [facility] Other 11-16-2022 11:45-0500 Systolic blood pressure 114 mm[Hg] Rolando Castellanos Other [facility] Other 11-14-2022 09:15-0500 Body height 170.18 cm Grecia Carlroberto Other [facility] Other 11-08-2022 14:57-0500 Blood Pressure Location Efrain CORTES [facility] [place] 11-08-2022 14:57-0500 Diastolic blood pressure 74 mm[Hg] Efrain CORTES [facility] [place] 11-08-2022 14:57-0500 Heart rate 80 /min Efrain NILL [facility] [place] 11-08-2022 14:57-0500 Respiratory rate 16 /min Efrain NILL [facility] [place] 11-08-2022 14:57-0500 Systolic blood pressure 118 mm[Hg] Efrain NILL [facility] [place] 10-23-2022 10:30-0500 Body height 170.18 cm Waqas Pierce Other [facility] Other 10-23-2022 10:30-0500 Body mass index (BMI) [Ratio] 46.04 kg/m2 Waqas Pierce Other [facility] Other 10-23-2022 10:30-0500 Body weight 133.36 kg Waqas Pierce Other [facility] Other 10-23-2022 10:30-0500 Diastolic blood pressure 88 mm[Hg] Waqas Pierce Other [facility] Other 10-23-2022 10:30-0500 Systolic blood pressure 148 mm[Hg] Waqas Pierce Other [facility] Other 10-13-2022 10:15-0500 Body height 170.18 cm Rachel Vela Other [facility] Other 10-13-2022 10:15-0500 Body mass index (BMI) [Ratio] 45.89 kg/m2 Rachel Missler Other [facility] Other 10-13-2022 10:15-0500 Body weight 132.9 kg Rachel Missler Other [facility] Other 10-13-2022 10:15-0500 Diastolic blood pressure 89 mm[Hg] Rachel Missler Other [facility] Other 10-13-2022 10:15-0500 Respiratory rate 18 /min Rachel Missler Other [facility] Other 10-13-2022 10:15-0500 SaO2% (BldA) [Mass fraction] 96 % Rachel Missler Other [facility] Other 10-13-2022 10:15-0500 Systolic blood pressure 138 mm[Hg] Rachel Missler Other [facility] Other 09-06-2022 16:00-0500 Body height 170.18 cm David Bartolo II Other [facility] Other 09-06-2022 16:00-0500 Body mass index (BMI) [Ratio] 45.57 kg/m2 David [place] II Other [facility] Other 09-06-2022 16:00-0500 Body weight 132 kg David Bartolo II Other [facility] Other 07-25-2021 18:45-0400 Body height 170.18 cm Mallory Yuen Other [facility] Other 07-25-2021 18:45-0400 Body mass index (BMI) [Ratio] 42.91 kg/m2 Mallory Yuen Other [facility] Other 07-25-2021 18:45-0400 Body temperature 98.6 [degF] Mallory Yuen Other [facility] Other 07-25-2021 18:45-0400 Body weight 124.29 kg Mallory Yuen Other [facility] Other 07-25-2021 18:45-0400 Respiratory rate 18 /min Mallory Yuen Other [facility] Other 07-25-2021 18:45-0400 SaO2% (BldA) [Mass fraction] 96 % Mallory Yuen Other [facility] Other Encounters Encounter Date Encounter Type Care Provider Facility Start: 08-04-2024 End: 08-04-2024 ambulatory [facility] Work Phone: Start: 08-04-2024 End: 08-04-2024 [facility] Work Phone: Start: 07-25-2024 End: 07-25-2024 ambulatory [facility] Start: 07-15-2024 Non-patient / Non-visit [facility] Work Phone: Start: 06-19-2024 End: 06-19-2024 ambulatory [facility] Work Phone: Start: 06-19-2024 End: 06-19-2024 Patient encounter procedure [facility] Work Phone: Start: 06-17-2024 Non-patient / Non-visit [facility] Work Phone: Start: 06-16-2024 Patient encounter procedure [facility] Start: 06-16-2024 End: 06-16-2024 ambulatory [facility] Work Phone: Start: 06-16-2024 End: 06-16-2024 Patient encounter procedure [facility] Work Phone: Start: 05-23-2024 End: 05-23-2024 ambulatory [facility] Work Phone: Start: 05-23-2024 End: 05-23-2024 Patient encounter procedure [facility] Work Phone: Start: 02-21-2024 End: 02-21-2024 ambulatory MD Waqas Pierce Work Phone: [facility] Work Phone: Start: 02-21-2024 End: 02-21-2024 Patient encounter procedure MD Waqas Pierce Work Phone: [facility] Work Phone: Start: 01-15-2024 End: 01-15-2024 ambulatory NON STAFF [facility] Work Phone: Start: 01-15-2024 End: 01-15-2024 Patient encounter procedure [facility] Work Phone: Start: 01-11-2024 Non-patient / Non-visit [facility] Work Phone: Start: 01-10-2024 End: 01-10-2024 ambulatory MD Waqas Pierce Work Phone: [facility] Work Phone: Start: 01-10-2024 End: 01-10-2024 Patient encounter procedure MD Waqas Pierce Work Phone: [facility] Work Phone: Start: 01-03-2024 End: 01-03-2024 ambulatory MD Waqas Pierce Work Phone: [facility] Work Phone: Start: 01-03-2024 End: 01-03-2024 Patient encounter procedure MD Waqas Pierce Work Phone: [facility] Work Phone: Start: 12-26-2023 End: 12-26-2023 ambulatory MD Waqas Pierce Work Phone: [facility] Work Phone: Start: 12-26-2023 End: 12-26-2023 Patient encounter procedure MD Waqas Pierce Work Phone: [facility] Work Phone: Start: 12-10-2023 End: 12-10-2023 Patient encounter procedure MD Waqas Pierce Work Phone: [facility] Work Phone: Start: 12-04-2023 Registered Recurring MD Waqas Pierce Work Phone: [facility] Start: 11-28-2023 End: 11-28-2023 Patient encounter procedure MD Waqas Pierce Work Phone: [facility] Work Phone: Start: 11-28-2023 End: 11-28-2023 Patient encounter procedure MD Waqas Pierce Work Phone: [facility] Start: 11-28-2023 End: 11-28-2023 ambulatory David Mcfarland II Facility:[facility] Start: 11-22-2023 End: 11-22-2023 ambulatory NON STAFF [facility] Work Phone: Start: 11-22-2023 End: 11-22-2023 Patient encounter procedure [facility] Work Phone: Start: 11-21-2023 End: 11-21-2023 ambulatory NON STAFF [facility] Work Phone: Start: 11-21-2023 End: 11-21-2023 Patient encounter procedure [facility] Work Phone: Start: 11-20-2023 Registered Recurring MD Waqas Pierce Work Phone: [facility] Start: 11-19-2023 End: 11-19-2023 ambulatory NON STAFF [facility] Work Phone: Start: 11-19-2023 End: 11-19-2023 Patient encounter procedure [facility] Work Phone: Start: 11-01-2023 End: 11-01-2023 ambulatory Waqas Pierce Other [employer] Other Start: 11-01-2023 Office outpatient vi sit 15 minutes Waqas Pierce [facility] Start: 11-01-2023 End: 11-01-2023 [facility] encounter [facility] Start: 10-31-2023 End: 10-31-2023 ambulatory Waqas Pierce Other [employer] Other Start: 10-31-2023 Telephone encounter Waqas Pierce [facility] Start: 10-23-2023 Registered Recurring MD Waqas Pierce Work Phone: [facility] Start: 10-17-2023 Postop follow up vis it related to original px David Mcfarland II [facility] Start: 10-17-2023 End: 10-17-2023 Patient encounter procedure [facility] Start: 10-17-2023 End: 10-17-2023 ambulatory NON STAFF [facility] Work Phone: Start: 10-15-2023 ([facility] FU) [facility] F/ U Registerd [employer] Up Driver Grecia Carrera [facility] Start: 10-15-2023 [facility]istered [facility] Work Phone: Start: 10-15-2023 End: 10-15-2023 ambulatory David Mcfarland II [employer] Other Start: 10-15-2023 End: 10-15-2023 Patient encounter procedure [facility] Work Phone: Start: 10-02-2023 End: 10-02-2023 ambulatory Rolando Reyesdiff Other [employer] Other Start: 10-02-2023 Telephone encounter [facility] Start: 09-19-2023 End: 09-19-2023 ambulatory David Mcfarland II Other [employer] Other Start: 09-19-2023 Postop follow up vis it related to original px Carrie Eliazar [facility] Start: 09-19-2023 Telephone encounter David Mcfarland II [facility] Start: 09-19-2023 End: 09-19-2023 Patient encounter procedure [facility] Work Phone: Start: 09-18-2023 End: 09-18-2023 ambulatory Rolando Castellanos Other [employer] Other Start: 09-18-2023 Follow-up encounter Rolandotimothy Reyesdienrike Vasquez alejo [facility] Start: 09-18-2023 End: 09-18-2023 Patient encounter procedure [facility] Work Phone: Start: 09-17-2023 ([facility] FU) [facility] F/ U Registerd Hook Up Driver Grecia Carrera [facility] Start: 09-17-2023 End: 09-17-2023 ambulatory Grecia Carrera Other [employer] Other Start: 09-17-2023 End: 09-17-2023 Patient encounter procedure [facility] Work Phone: Start: 09-10-2023 End: 09-10-2023 ambulatory David Rdzle II Other [employer] Other Start: 09-10-2023 Telephone encounter David Mcfarland II [facility] Start: 09-03-2023 End: 09-03-2023 Admission to same day surgery center MD Waqas Pierce Work Phone: [facility] [place] Start: 09-03-2023 End: 09-03-2023 ambulatory MD Waqas Pierce Work Phone: [facility] Work Phone: Start: 08-31-2023 (Prolonged) Prolonge d Services David Mcfarland II [facility] Start: 08-31-2023 Registered Recurring MD Waqas Pierce Work Phone: [facility] [place] Start: 08-31-2023 End: 08-31-2023 ambulatory NON STAFF [employer] Other Start: 08-30-2023 End: 08-30-2023 ambulatory David Mcfarland II Other [employer] Other Start: 08-30-2023 Office outpatient vi sit 40 minutes David Rdzle II [facility] Start: 08-28-2023 End: 08-28-2023 Patient encounter procedure MD Waqas Pierce Work Phone: [facility] Work Phone: Start: 08-28-2023 End: 08-28-2023 ambulatory MD Waqas Pierce Work Phone: [facility] Work Phone: Start: 08-28-2023 Registered Recurring [facility] Start: 08-21-2023 End: 08-21-2023 ambulatory Waqas Pierce Other [employer] Other Start: 08-21-2023 Encounter for other preprocedural examination Waqas Pierce [facility] Start: 08-21-2023 Office outpatient vi sit 25 minutes Waaqs Pierce [facility] Start: 08-15-2023 End: 08-15-2023 Patient encounter procedure MD Waqas Pierce Work Phone: [facility] [place] Start: 08-15-2023 End: 08-15-2023 ambulatory MD Waqas Pierce Work Phone: [facility] Work Phone: Start: 08-13-2023 Registered Recurring MD Waqas Pierce Work Phone: [facility] Work Phone: Start: 08-13-2023 ([facility] FU) [facility] F/ U Registerd Hook Up Driver Grecia Carrera [facility] Start: 08-13-2023 End: 08-13-2023 ambulatory Grecia Carrera Other [employer] Other Start: 08-06-2023 End: 08-06-2023 ambulatory David Mcfarland II Other [employer] Other Start: 08-06-2023 Telephone encounter David Mcfarland II [facility] Start: 08-01-2023 End: 08-01-2023 ambulatory Waqas Pierce Other [employer] Other Start: 08-01-2023 Telephone encounter Waqas Pierce [facility] Start: 07-31-2023 (Televisit) Televisit Waqas Vasquez [facility] Start: 07-31-2023 End: 07-31-2023 ambulatory Waqas Pierce Other [employer] Other Start: 07-26-2023 End: 07-26-2023 ambulatory Rolando Castellanos Other [employer] Other Start: 07-26-2023 Follow-up encounter Rolando Vasquez [facility] Start: 07-26-2023 Telephone encounter David Mcfarland II [facility] Start: 07-23-2023 ([facility] FU) [facility] F/ U Registerd Hook Up Driver Grecia Carlroberto [facility] Start: 07-23-2023 End: 07-23-2023 ambulatory Grecia Carlt Other [facility] Other Start: 07-09-2023 End: 07-09-2023 ambulatory Rolando Castellanos Other [employer] Other Start: 07-09-2023 Telephone encounter Rolando Vasquez [facility] Start: 06-27-2023 End: 06-27-2023 ambulatory David Bartolo II Other [employer] Other Start: 06-27-2023 Office outpatient vi sit 25 minutes David Bartolo II [facility] Start: 06-19-2023 End: 06-19-2023 ambulatory Waqas Pierce Other [employer] Other Start: 06-19-2023 Telephone encounter Waqas Pierce [facility] Start: 06-18-2023 ([facility] FU) [facility] F/ U Registerd Hook Up Driver Grecia Carrera [facility] Start: 06-18-2023 End: 06-18-2023 ambulatory Grecia Carlt Other [employer] Other Start: 06-14-2023 End: 06-14-2023 ambulatory Rolando Castellanos Other [employer] Other Start: 06-14-2023 Follow-up encounter Rolando Vasquez [facility] Start: 06-11-2023 End: 06-11-2023 ambulatory Waqas Pierce Other [employer] Other Start: 06-11-2023 Encounter for genera l adult medical examination without abnormal findings Waqas Pierce [facility] Start: 06-11-2023 Periodic preventive med est patient 40-64yrs Waqas Kari [facility] Start: 06-01-2023 End: 06-01-2023 ambulatory Waqas Kari Other [employer] Other Start: 06-01-2023 Telephone encounter Waqas Kari [facility] Start: 05-28-2023 End: 05-28-2023 ambulatory Waqas Pierce Other [employer] Other Start: 05-28-2023 Telephone encounter Waqas Kari [facility] Start: 05-14-2023 ([facility] FU) [facility] F/ U Registerd Hook Up Driver Grecia Henryroberto [facility] Start: 05-14-2023 End: 05-14-2023 ambulatory Grecia Carrera Other [employer] Other Start: 04-16-2023 ([facility] FU) [facility] F/ U Registerd Hook Up Driver Grecia Henryroberto [facility] Start: 04-16-2023 End: 04-16-2023 ambulatory Grecia Henryt Other [employer] Other Start: 03-28-2023 ambulatory NON STAFF Facility:[facility] Start: 03-21-2023 End: 03-21-2023 ambulatory Waqas Pierce Other [employer] Other Start: 03-21-2023 Telephone encounter Waqas Kari [facility] Start: 02-22-2023 ambulatory MER MAYBERRY . Facil ity:H1 Start: 02-13-2023 End: 02-14-2023 ambulatory AMY KASPER Facility:H1 Start: 01-31-2023 End: 01-31-2023 ambulatory Waqas Pierce Other [employer] Other Start: 01-31-2023 Telephone encounter Waqas Pierce [facility] Urgent Care [facility] Start: 01-30-2023 End: 01-31-2023 ambulatory AMY Iverson [facility] Facility:H1 Start: 01-19-2023 End: 01-20-[address] ROLANDO CASTELLANOS Facility:[facility]1 Start: 01-11-2023 [facility] SANDRA Inmigel ial Provider Grecia Carrera [facility] Start: 01-11-2023 End: 01-11-2023 ambulatory Grecia Carrera Other [employer] Other Start: 01-09-2023 End: 01-10-2023 ambulatory AMY Iverson [facility] Facility:H1 Start: 12-25-2022 End: 12-25-2022 ambulatory Junior Mcgowan Other [employer] Other Start: 12-25-2022 Telephone encounter Junior King [facility] Start: 12-22-2022 End: 12-23-2022 ambulatory AYM Iverson [facility] Facility:H1 Start: 12-18-2022 End: 12-18-2022 ambulatory Junior Mcgowan Other [employer] Other Start: 12-18-2022 Telephone encounter Junior King [facility] Start: 12-15-2022 End: 12-15-2022 ambulatory Waqas Pierce Other [employer] Other Start: 12-15-2022 Telephone encounter Waqas Pierce [facility] Start: 12-12-2022 Telephone encounter Rolando Vasquez [facility] Start: 12-12-2022 End: 12-13-[address] WAQAS PIERCE [facility] Other Start: 12-06-2022 Telephone encounter Waqas Pierce [facility] Start: 12-06-2022 End: 12-07-2022 ambulatory Efrain CORTES [facility] Other Start: 12-01-2022 End: 12-02-[address] WAQAS PIERCE Facility:H1 Start: 11-20-2022 End: 11-20-2022 ambulatory Rolando Castellanos Other [employer] Other Start: 11-20-2022 Telephone encounter Rolando [facility]hill[facility] Start: 11-17-2022 Telephone encounter Waqas Pierce [facility] Start: 11-17-2022 End: 11-18-[address] WAQAS PIERCE [facility] Other Start: 11-16-2022 End: 11-16-2022 ambulatory Rolando Jasmin Other [employer] Other Start: 11-16-2022 Follow-up encounter Rolando Jasmin Christina belshon [facility] Start: 11-14-2022 End: 11-14-2022 ambulatory Grecia Carrera Other [employer] Other Start: 11-14-2022 IBT FOR OBESITY GROU P 2-10 30M Greciahuan Carrera [facility] Start: 11-13-2022 End: 11-13-2022 ambulatory Waqas Pierce Other [employer] Other Start: 11-13-2022 Telephone encounter Waqas Pierce [facility] Start: 11-08-2022 End: 11-09-2022 ambulatory Efrain CORTES Facility:[facility] Start: 11-08-2022 End: 11-08-2022 Patient encounter procedure Efrain CORTES General Surgery [facility] Start: 11-06-2022 End: 11-07-[address] WAQAS PIERCE Facility:H1 Start: 11-05-2022 Encounter for gynecological examination (general) (routine) without abnormal findings DR FRIEDA LOCKE . [facility] Start: 11-03-2022 End: 11-04-[address] WAQAS PIERCE Facility:H1 Start: 10-30-2022 End: 10-31-[address] WAQAS PIERCE Facility:H1 Start: 10-25-2022 End: 10-25-2022 ambulatory Waqas Pierce Other [employer] Other Start: 10-25-2022 Telephone encounter Waqas Pierce [facility] Start: 10-24-2022 End: 10-24-2022 ambulatory Rolando Castellanos Other [employer] Other Start: 10-24-2022 Telephone encounter Rolando Vasquez [facility] Start: 10-23-2022 Office outpatient vi sit 15 minutes Waqas Pierce [facility] Start: 10-23-2022 Telephone encounter Waqas Pierce [facility] Start: 10-23-2022 End: 10-24-2022 ambulatory NON STAFF [facility] Work Phone: Start: 10-23-2022 End: 10-23-2022 Departed Referred [facility] [place] Work Phone: Start: 10-20-2022 End: 10-20-2022 ambulatory Waqas Pierce Other [employer] Other Start: 10-20-2022 Telephone encounter Waqas Pierce [facility] Start: 10-17-2022 End: 10-18-[address] WAQAS PIERCE Facility:H1 Start: 10-13-2022 End: 10-13-2022 ambulatory Rachel Vela Other [employer] Other Start: 10-13-2022 Nutrition therapy Rachelher Vela [facility] Start: 10-13-2022 Telephone encounter Rachel Vela [facility] Start: 10-13-2022 Registered Recurring [facility] Work Phone: Start: 10-10-2022 End: 10-11-[address] WAQAS PIERCE Facility:H1 Start: 10-06-2022 End: 01-06-2023 ambulatory Waqas Pierce Other [employer] Other Start: 10-06-2022 Telephone encounter Waqas Pierce [facility] Start: 10-04-2022 (Procedure) Short Junior Mcgowan [facility] Start: 10-04-2022 End: 10-04-2022 ambulatory Junior Mcgowan Other [employer] Other Start: 10-03-2022 End: 10-04-[address] WAQAS PIERCE [facility] Other Start: 10-03-2022 Telephone encounter Junior King [facility] [place] Start: 09-27-2022 End: 09-27-2022 ambulatory Junior Mcgowan Other [employer] Other Start: 09-27-2022 Telephone encounter Junior King [facility] Start: 09-19-2022 End: 09-20-[address] WAQAS PIERCE Facility:H1 Start: 09-11-2022 End: 09-12-[address] WAQAS PIERCE Facility:[facility]1 Start: 09-06-2022 End: 09-06-2022 Patient encounter procedure [facility] Start: 09-06-2022 End: 09-06-2022 ambulatory NON STAFF [facility] Work Phone: Start: 09-06-2022 FQHC visit new patient David davalos AMAURI [facility] Start: 08-28-2022 End: 08-29-[address] WAQAS PIERCE Facility:H1 Start: 08-18-2022 Adult health examination Grecia Fitt Other [facility] Other Start: 08-18-2022 Gynecological examination normal Grecia Fitt Other [facility] Other Start: 08-18-2022 End: 08-19-[address] WAQAS PIERCE Facility:[facility]1 Start: 08-18-2022 End: 08-19-2022 ambulatory AMY Kishor FLORESUDAY Facility:H1 Start: 08-11-2022 End: 08-12-2022 ambulatory AMY FLORESUDAY Facility:H1 Start: 08-08-2022 End: 08-09-[address] WAQAS PIERCE Facility:[facility]1 Start: 08-02-2022 End: 08-03-2022 ambulatory AMY FLORESUDAY Facility:H1 Start: 07-21-2022 End: 07-22-[address] [...] Encounter for other preprocedural examination AMY KASPER [facility] Start: 04-24-[address] WAQAS PIERCE [...] Start: 07-26-2021 Pre-procedure evalua tion check Grecia Henryroberto Other [employer] Other Start: 07-25-2021 Office outpatient vi sit 15 minutes Mallory Yuen [facility] Start: 06-23-2021 Office outpatient vi sit 25 minutes Junior Mcgowan [facility] [place] Start: 06-23-2021 Telephone encounter [facility] [...] Surgery: [id number] Result Comment: PERF ORMED BY: [facility] [address] [place] [address] PATHOLOGIST [employer] ACCESS DEVELOPER SUAD ARREAGA M.D. Start: 08-28-2023 Urine culture MD Waqas Pierce Work Phone: Start: 08-15-2023 Plain X-ray of right hip MD Waqas Pierce Work Phone: Start: 10-23-2022 Urine culture Start: 09-06-2022 Plain X-ray of right hip Start: 04-24-2022 Excision of Left Tarsal, Open Approach DR WAQAS PIERCE Start: 04-24-2022 Insertion of Tissue District Sales Representative into Left Foot Subcutaneous Tissue and Fascia, Open Approach DR WAQAS PIERCE Start: 04-24-2022 Removal of Internal Fixation Device from Left Tarsal, Open Approach DR WAQAS PIERCE Start: 04-24-2022 Replacement of Left Foot Skin with Nonautologous Tissue Substitute, Full Thickness, External Approach DR WAQAS PIERCE Start: 12-16-2020 ANESTH LOWER ARM SURGERY JUDSON IVÁNAVA Start: 12-16-2020 Tendon sheath incision DAVID LR Start: 10-01-2020 Varicose veins of left lower limb (disorder) Efrain CORTES Comment on above: procedure Start: 09-08-2020 Esophagogastroduodenoscopy Efrain CORTES Start: 12-04-2016 Laboratory test result abnormal Grecia Fit t Other Arthroplasty Efrain SOPHIA Comment on above: left hip Bilateral bone spur of calcaneum (disorder) Efrain RABAGOL Decompression of median nerve Efrain CORTES Comment [...] Activity Detail Author Start: 09-03-2023 Hospital admission [facility] Start: 09-03-2023 End: 09-03-2023 [facility] Start: 09-03-2023 Physical therapy procedure [facility] Start: 08-28-2023 [facility] Start: 08-28-2023 Bacteria identified in Urine by Culture [facility] aPTT in Platelet poo r plasma by Coagulation assay [facility] Bacteria identified in Urine by Culture [facility] CT Chest WO and W contrast IV [facility] XR Chest 2 Views [facility] XR Chest 2 Views [facility] Immunizations Immunization Date Immunization Notes Care Provider Fa cility 09-28-2023 COVID-19 (PFIZER) [id number] 12Y and older MD Waqas Pierce Work Phone: [facility] 09-28-2023 influenza, injectabl e, quadrivalent, preservative free MD Waqas Pierce Work Phone: [facility] 08-31-2022 COVID-19 (Pfizer) Bivalent Booster, Age 12Y+ [facility] 08-31-2022 influenza virus vaccine, unspecified formulation Efrain CORTES [facility] [place] 08-31-2022 influenza, injectabl e, quadrivalent, preservative free MD Waqas Pierce Work Phone: [facility] 08-31-2022 SARS-CoV-2 (COVID-19 ) [id number] Efrain CORTES [facility] [place] 02-24-2022 COVID-19 (Pfizer); Translations: [COVID-19 (Pfizer)] MD Waqas Pierce Work Phone: [facility] 02-24-2022 COVID-19 Comirnaty (Pfizer) Tri-Sucrose 12+ MD Waqas Pierce Work Phone: [facility] 02-24-2022 SARS-CoV-2 mRNA (djashmrulnn-hrzu-tmwln se) vaccine Efrain CORTES [facility] 11-20-2021 influenza, injectabl e, quadrivalent, preservative free MD Waqas Pierce Work Phone: [facility] 08-19-2021 COVID-19 (Pfizer) [facility] 08-19-2021 SARS-CoV-2 (COVID-19 ) mRNA BNT-162b2 vax Efrain RABAGOSharan [facility] [place] 01-19-2021 COVID-19 (Pfizer) [facility] 01-19-2021 SARS-CoV-2 (COVID-19 ) mRNA BNT-162x6 [employer] Efrain RABAGOL [facility] [place] 12-31-2020 COVID-19 (Pfizer) [facility] 12-31-2020 SARS-CoV-2 (COVID-19 ) mRNA BNT-[id number] [employer] Efrain CORTES [facility] 06-25-2020 influenza virus vaccine, split virus (incl. purified surface antigen) Grecia Carrera Other [employer] Other 06-25-2020 influenza virus vaccine, unspecified formulation [facility] 06-25-2020 influenza, injectabl e, quadrivalent, preservative free MD Waqas Pierce Work Phone: [facility] 06-25-2020 pneumococcal polysaccharide vaccine, 23 valent Grecia Carrera Other [facility] 07-30-2019 influenza, injectabl e, quadrivalent, contains preservative MD Waqas Pierce Work Phone: [facility] 07-12-2018 influenza, injectabl e, quadrivalent, preservative free MD Waqas Pierce Work Phone: [facility] 11-15-2016 influenza, injectabl e, quadrivalent, preservative free MD Waqas Pierce Work Phone: [facility] Payers Date Payer Category Payer Private Health Insurance [id number] 2022 Self-pay [id number] 1960 Unknown [id number] 2.16.840.1.516324.3.579.2.647 1962 Unknown [id number] 2.16.840.1.100416.3.579.2.727 1962 Unknown [id number] 2.16.840.1.217832.3.579.2.727 1962 Unknown [id number] 2.16.840.1.364994.3.579.2.593 1962 Unknown [id number] 2.16.840.1.765458.3.579.2.593 1962 Unknown [id number] 2.16.840.1.782635.3.579.2.593 1962 Unknown [id number] 2.16.840.1.499425.3.579.2.593 1962 Unknown [id number] 2.16.840.1.042889.3.579.2.593 1962 Unknown [id number] 2.16.840.1.264684.3.579.2.593 1962 Unknown [id number] 2.16.840.1.573514.3.579.2.593 1962 Unknown [id number] 2.16.840.1.659588.3.579.2.593 1962 Unknown [id number] 2.16.840.1.161456.3.579.2.593 1962 Unknown [id number] 2.16.840.1.490661.3.579.2.593 1962 Unknown [id number] 2.16.840.1.418192.3.579.2.593 1962 Unknown [id number] 2.16.840.1.904098.3.579.2.593 1962 Unknown [id number] 2.16.840.1.994114.3.579.2.593 1962 Unknown [id number] 2.16.840.1.299374.3.579.2.593 1962 Unknown [id number] 2.16.840.1.791447.3.579.2.593 1962 Unknown [id number] 2.16.840.1.846278.3.579.2.593 1962 Unknown [id number] 2.16.840.1.172530.3.579.2.593 1962 Unknown [id number] 2.16.840.1.195302.3.579.2.593 1962 Unknown [id number] 2.16.840.1.486990.3.579.2.593 1962 Unknown [id number] 2.16.840.1.657964.3.579.2.593 1962 Unknown [id number] 2.16.840.1.154554.3.579.2.593 1962 Unknown [id number] 2.16.840.1.285058.3.579.2.593 1962 Unknown [id number] 2.16.840.1.024000.3.579.2.593 1962 Unknown [id number] 2.16.840.1.022654.3.579.2.593 1962 Unknown [id number] 2.16.840.1.046019.3.579.2.593 1962 Unknown [id number] 2.16.840.1.855912.3.579.2.593 1962 Unknown [id number] 2.16.840.1.536126.3.579.2.593 1962 Unknown [id number] 2.16.840.1.833061.3.579.2.593 1962 Unknown [id number] 2.16.840.1.084381.3.579.2.593 1962 Unknown [id number] 2.16.840.1.109176.3.579.2.593 1962 Unknown [id number] 2.16.840.1.516484.3.579.2.593 1962 Unknown [id number] 2.16.840.1.667555.3.579.2.593 1962 Unknown [id number] 2.16.840.1.620502.3.579.2.593 1962 Unknown [id number] 2.16.840.1.208042.3.579.2.593 1962 Unknown [id number] 2.16.840.1.987999.3.579.2.593 1962 Unknown [id number] 2.16.840.1.938805.3.579.2.593 1962 Unknown [id number] 2.16.840.1.331114.3.579.2.593 1962 Unknown [id number] 2.16.840.1.360996.3.579.2.593 1962 Unknown [id number] 2.16.840.1.046446.3.579.2.593 1962 Unknown [id number] 2.16.840.1.431035.3.579.2.593 1962 Unknown [id number] 2.16.840.1.888200.3.579.2.593 1962 Unknown [id number] 2.16.840.1.514539.3.579.2.593 1962 Unknown [id number] 2.16.840.1.238535.3.579.2.593 1959 Unknown [id number] 2.16. 840.1.098066.19 1959 Unknown [id number] Medicare Medicare [id number] Unknown [id number] 2.16.840.1.439262.3.579.2.531 Unknown [id number] 2.16.840.1.655305.3.579.2.531 Unknown [id number] 2.16.840.1.115641.3.579.2.531 Unknown [id number] 2.16.840.1.352719.3.579.2.531 Worker's Compensation [id number] Worker's Compensation [facility] [id number] Social History Date Type Detail Facility Unknown if ever smoked [facility] Other Sex Assigned At [facility] Start: 1960 Sex Assigned At Female F [facility] Start: 11-08-2022 End: 01-03-2024 Tobacco smoking status Ex-smoker (finding) General Surgery [facility] Comment on above: smoked one year, souleymane t 30 years ago Tobacco smoking status Never Gener al [facility] [place] Comment on above: smoked one year, souleymane t 30 years ago Medical Equipment Procedure Code Equipment Code Equipment Origin al Text Equipment Identifier Dates Arthroplasty, hip, total, anterior approach Acetabular shell ([id number] [facility] Start: 09-03-2023 Arthroplasty, hip, total, anterior approach Ceramic femoral head prosthesis ()[id number] FDA Start: 09-03-2023 Arthroplasty, hip, total, anterior approach Coated hip femur prosthesis, modular ()[id number] FDA Start: 09-03-2023 Arthroplasty, hip, total, anterior approach Non-constrained polyethylene acetabular liner ()[id number] FDA Start: 09-03-2023 Start: 02-13-2023 Goals Date [...] given. 1. Prediabetes most recent A1c of 5.3-mpbiy-zsnw treatment with long-term healthy lifestyle change, decreased [...] join the gym and start with a celebrity chef entrepreneur media personality. She should consider pool therapy/ water therapy. She needs to try to keep her trigger foods out of the house. She is to try to find healthier desserts and she tends to like to have 1 after each meal. Lately her cravings for sweets have been decreased. She continues to work with our pediatric cns. She understands the need for preplanning, following the plate method, having healthy foods around, keeping unhealthy foods out of her house and eating healthy Whole Foods. She does not like to cook or prep. She understands that shopping, chopping and preplanning so that she can eat healthy foods is essential to her recovery. She will continue to work with our pediatric cns. We could consider Wellbutrin in the future [...] TSH with her PCP. Author Estephania Mao [facility] Authored February 21, 2024 10:30 am [...] given. 1. Prediabetes most recent A1c of 5.9-vscsy-cclo treatment with long-term healthy lifestyle change, decreased [...] join the gym and start with a celebrity chef entrepreneur media personality. She should consider pool therapy/ water therapy. She needs to try to keep her trigger foods out of the house. She is to try to find healthier desserts and she tends to like to have 1 after each meal. Lately her cravings for sweets have been decreased. She continues to work with our pediatric cns. She understands the need for preplanning, following the plate method, having healthy foods around, keeping unhealthy foods out of her house and eating healthy Whole Foods. She does not like to cook or prep. She understands that shopping, chopping and preplanning so that she can eat healthy foods is essential to her recovery. She will continue to work with our pediatric cns. We could consider Wellbutrin in the future [...] lab work and TSH with her PCP. [facility] Work Phone: 1(558) 319-425304-04-2024 Evaluation note* Author Rolando Castellanos [facility] Authored January 03, 2024 11:3 9am [...] given. 1. Prediabetes most recent A1c of 5.1-umlrt-cvwy treatment with long-term healthy lifestyle change, decreased [...] join the gym and start with a celebrity chef entrepreneur media personality. She should consider pool therapy/ water therapy. She needs to try to keep her trigger foods out of the house. She is to try to find healthier desserts and she tends to like to have 1 after each meal. Lately her cravings for sweets have been decreased. She continues to work with our pediatric cns. She understands the need for preplanning, following the plate method, having healthy foods around, keeping unhealthy foods out of her house and eating healthy Whole Foods. She does not like to cook or prep. She understands that shopping, chopping and preplanning so that she can eat healthy foods is essential to her recovery. She will continue to work with our pediatric cns. We could consider Wellbutrin in the future [...] TSH with her PCP. Author Rolando Castellanos [facility] Authored February 21, 2024 10:49 am [...] given. 1. Prediabetes most recent A1c of 5.1-udwnr-iumb treatment with long-term healthy lifestyle change, decreased [...] join the gym and start with a celebrity chef entrepreneur media personality. She should consider pool therapy/ water therapy. [...] to continue to work closely with our tree warden. She understands the need for preplanning, following the plate method, having healthy foods around, keeping unhealthy foods out of her house and eating healthy Whole Foods. She does not like to cook or prep. She understands that shopping, chopping and preplanning so that she can eat healthy foods is essential to her recovery. She will continue to work with our pediatric cns. We could consider Wellbutrin in the future [...] lab work and TSH with her PCP. [facility] Work Phone: 1(168) 953-161402-22-2024 Evaluation note* Author Rolando Castellanos [facility] Authored November 22, 2023 12:47pm Highest [...] given. 1. Prediabetes most recent A1c of 5.8-avpmg-pfra treatment with long-term healthy lifestyle change, decreased [...] house. She continues to work with our pediatric cns. She understands the need for preplanning, following the plate method, having healthy foods around, keeping unhealthy foods out of her house and eating healthy Whole Foods. She does not like to cook or prep. She understands that shopping, chopping and preplanning so that she can eat healthy foods is essential to her recovery. She will continue to work with our pediatric cns. We could consider Wellbutrin in the future [...] lab work and TSH with her PCP. [facility] Work Phone: 1(495) 598-228002-22-2024 Evaluation note* Author Rolando Castellanos [facility] Authored November 22, 2023 12:47pm Highest [...] given. 1. Prediabetes most recent A1c of 5.1-nilfb-juan treatment with long-term healthy lifestyle change, decreased [...] house. She continues to work with our pediatric cns. She understands the need for preplanning, following the plate method, having healthy foods around, keeping unhealthy foods out of her house and eating healthy Whole Foods. She does not like to cook or prep. She understands that shopping, chopping and preplanning so that she can eat healthy foods is essential to her recovery. She will continue to work with our pediatric cns. We could consider Wellbutrin in the future [...] TSH with her PCP. Author Estephania Mao [facility] Authored January 03, 2024 11:1 8am [...] given. 1. Prediabetes most recent A1c of 5.7-aajvu-cynk treatment with long-term healthy lifestyle change, decreased [...] house. She continues to work with our pediatric cns. She understands the need for preplanning, following the plate method, having healthy foods around, keeping unhealthy foods out of her house and eating healthy Whole Foods. She does not like to cook or prep. She understands that shopping, chopping and preplanning so that she can eat healthy foods is essential to her recovery. She will continue to work with our pediatric cns. We could consider Wellbutrin in the future [...] lab work and TSH with her PCP. [facility] Work Phone: 1(799) 401-656802-22-2024 Evaluation note* Author Rolando Castellanos [facility] Authored November 22, 2023 12:47pm Highest [...] given. 1. Prediabetes most recent A1c of 5.8-fmqrv-ujnp treatment with long-term healthy lifestyle change, decreased [...] house. She continues to work with our pediatric cns. She understands the need for preplanning, following the plate method, having healthy foods around, keeping unhealthy foods out of her house and eating healthy Whole Foods. She does not like to cook or prep. She understands that shopping, chopping and preplanning so that she can eat healthy foods is essential to her recovery. She will continue to work with our pediatric cns. We could consider Wellbutrin in the future [...] TSH with her PCP. Author Rolando Castellanos [facility] Authored January 03, 2024 11:3 9am [...] given. 1. Prediabetes most recent A1c of 5.0-znwdt-fcti treatment with long-term healthy lifestyle change, decreased [...] join the gym and start with a celebrity chef entrepreneur media personality. She should consider pool therapy/ water therapy. She needs to try to keep her trigger foods out of the house. She is to try to find healthier desserts and she tends to like to have 1 after each meal. Lately her cravings for sweets have been decreased. She continues to work with our pediatric cns. She understands the need for preplanning, following the plate method, having healthy foods around, keeping unhealthy foods out of her house and eating healthy Whole Foods. She does not like to cook or prep. She understands that shopping, chopping and preplanning so that she can eat healthy foods is essential to her recovery. She will continue to work with our pediatric cns. We could consider Wellbutrin in the future [...] lab work and TSH with her PCP. [facility] Work Phone: 1([phone]) 606-319102-01-2024 Evaluation note* Encounter Date Diagnosis Assessment Notes Treatment Notes Treatment Clinical Notes Nov, Hypothyroidism (ICD-10 - E03.9) Pt due for labs - will recheck Nov, Elevated fasting glucose (ICD-10 - R73.01) Continue healthy diet and exercise as able. [facility] Other 01-17-2024 Evaluation note* Encounter Date Diagnosis Assessment Notes Treatment Notes Treatment Clinical Notes Oct, Aftercare following joint replacement surgery (ICD-10 - Z47.1) Oct, Presence of right artificial hip joint (ICD-10 - Z96.641) Oct, Other [facility] on 09/03/2023 Doing well Patient may continue increasing activities as tolerated. Continue taking tbeb-wvd-zrzsepn anti-inflammatorie s as needed for assistance with swelling and pain associated with the operative extremity. Follow-up in 6 weeks for repeat examination and repeat x-rays. [facility] Other 01-15-2024 Evaluation note* Encounter Date Diagnosis Assessment Notes Treatment Notes Treatment Clinical Notes Oct, Obesity (ICD-10 - E66.9) Oct, BMI 40.0-44.9, adult (ICD-10 - Z68.41) Oct, Other Summary of Visi t: (A) Discussed including more vegetables (B) Discussed plant proteins (C) Provided recipes [facility] Other 01-02-2024 Evaluation note* Encounter Date Diagnosis Assessment Notes Treatment Notes Treatment Clinical Notes Oct, Hypothyroidism (ICD-10 - E03.9) [facility] Other 12-20-2023 Evaluation note* Encounter Date Diagnosis [...] right artificial hip joint (ICD-10 - Z96.641) [facility] Other 12-19-2023 Evaluation note* Encounter Date Diagnosis [...] Aug, Metabolic syndrome X (ICD-10 - E88.81) [facility] Other 12-19-2023 Evaluation note* Author Rolando Castellanos [facility] Authored November 22, 2023 11:47am Highest [...] given. 1. Prediabetes most recent A1c of 5.3-boqjf-qiox treatment with long-term healthy lifestyle change, decreased [...] house. She continues to work with our pediatric cns. She understands the need for preplanning, following the plate method, having healthy foods around, keeping unhealthy foods out of her house and eating healthy Whole Foods. She does not like to cook or prep. She understands that shopping, chopping and preplanning so that she can eat healthy foods is essential to her recovery. She will continue to work with our pediatric cns. We could consider Wellbutrin in the future [...] lab work and TSH with her PCP. [facility] Work Phone: 1(714) 499-385912-18-2023 Evaluation note* Encounter Date Diagnosis Assessment Notes Treatment Notes Treatment Clinical Notes Aug, Obesity (ICD-10 - E66.9) Aug, BMI 40.0-44.9, adult (ICD-10 - Z68.41) Aug, Other Summary of Visi t: (A) Discussed including more vegetables (B) Answered general nutrition-related questions (C) DIscussed options for including more water [facility] Other 12-01-2023 Evaluation note* Encounter Date Diagnosis [...] patient could proceed with surgery safely. The procedure manager was vital for surgery timing and [...] plans. Prolonged services time spent: 31 minutes [facility] Other 11-30-2023 Evaluation note* Encounter Date Diagnosis [...] therapy arrives. Joints Meeting Checklist - Pharmacy: [facility] to bed - Approach/Technique: anterior, [place] bed - Implants: Avenir Complete/G7; - Anesthesia: general vs spinal - Blocks: Fascia iliaca - Preop Antibiotics: Ancef and Vanco - TXA: yes-systemic - Positioning/OR Bed: supine on [place] bed - Intraop X-ray: yes - Alejandra: [...] above surgery. OARRS report generated and reviewed. [facility] Other 11-21-2023 Evaluation note* Encounter Date Diagnosis [...] symptoms. Any developing patterns. Stay well hydrated. [facility] Other 11-13-2023 Evaluation note* Encounter Date Diagnosis Assessment Notes Treatment Notes Treatment Clinical Notes Aug, Obesity (ICD-10 - E66.9) Aug, BMI 40.0-44.9, adult (ICD-10 - Z68.41) Aug, Other Summary of Visi t: (A) Continue current regimen (B) Much emotional support provided today (C) Encouraged continued follow up with counselor [facility] Other 10-31-2023 Evaluation note* Encounter Date Diagnosis Assessment Notes Treatment Notes Treatment Clinical Notes Jul, Acute laryngitis (ICD-10 - J04.0) Patient denies bacterial infection symptoms such as fever facial pressure or chills. Patient has not taken a COVID test. Discussed jhrn-krw-nxzmvzi medications to use along with steroid pills that can improve her discomfort and laryngitis going forward. Advised that the steroids could elevate her blood sugar and to be mindful of that accordingly. [facility] Other 10-26-2023 Evaluation note* Encounter Date Diagnosis [...] Jul, Metabolic syndrome X (ICD-10 - E88.81) [facility] Other 10-26-2023 Evaluation note* Encounter Date Diagnosis Assessment Notes Treatment Notes Treatment Clinical Notes Jul, Other shelter (current) drug therapy (ICD-10 - Z79.899) Jul, Other osteoporosis without current pathological fracture (ICD-10 - M81.8) Jul, Osteoarthritis of right hip (ICD-10 - M16.11) [facility] Other 10-23-2023 Evaluation note* Encounter Date Diagnosis Assessment Notes Treatment Notes Treatment Clinical Notes Jul, Obesity (ICD-10 - E66.9) Jul, BMI 40.0-44.9, adult (ICD-10 - Z68.41) Jul, Other Summary of Visi t: (A) Continue current regimen (B) Discussed ways to include more water (C) Discussed ways to include more vegetables [facility] Other 09-27-2023 Evaluation note* Encounter Date Diagnosis [...] the patient works on weight loss management. [facility] Other 09-18-2023 Evaluation note* Encounter Date Diagnosis [...] meals available that fit the plate method [facility] Other 09-14-2023 Evaluation note* Encounter Date Diagnosis [...] Jun, Metabolic syndrome X (ICD-10 - E88.81) [facility] Other 09-11-2023 Evaluation note* Encounter Date Diagnosis [...] E55.9) discussed supplementation. will check D level. [facility] Other 08-28-2023 Evaluation note* Encounter Date Diagnosis Assessment Notes Treatment Notes Treatment Clinical Notes May, Hypothyroidism (ICD-10 - E03.9) [facility] Other 08-14-2023 Evaluation note* Encounter Date Diagnosis Assessment Notes Treatment Notes Treatment Clinical Notes May, Obesity (ICD-10 - E66.9) May, BMI 40.0-44.9, adult (ICD-10 - Z68.41) May, Other Summary of Visi t: (A) Discussed cooking various foods (B) Find control in indulgences (C) Reviewed the plate method [facility] Other 07-17-2023 Evaluation note* Encounter Date Diagnosis Assessment Notes Treatment Notes Treatment Clinical Notes Mar, Obesity (ICD-10 - E66.9) Mar, BMI 40.0-44.9, adult (ICD-10 - Z68.41) Mar, Other Summary of Visi t: (A) Discussed cooking various foods (B) Find control in indulgences (C) emphasize self-care [facility] Other 05-17-2023 NotePROCEDURE: XR FOOT LT MIN [...] Electronically authenticated by: ARIELA SCHWAB Date: 2023-02-14 06:48[facility]04-13-2023 Evaluation note* Encounter Date Diagnosis Assessment [...] 2. Increase veggies, follow the plate method [facility] Other 03-14-2023 Evaluation note* Encounter Date Diagnosis Assessment Notes Treatment Notes Treatment Clinical Notes Nov, Abnormal laboratory test result (ICD-10 - R89.9) [facility] Other 03-08-2023 NoteOPERATIVE NOTE OPERATION DATE: 12/06/2022 [...] in 10 years. CC: Waqas Pierce M.D.[id number] Evaluation note* Encounter Date Diagnosis Assessment Notes [...] - M16.10) Nov, Hypertension (ICD-10 - I10) [facility] Other 02-14-2023 Evaluation note* Encounter Date Diagnosis [...] patient set personal goal using given handout. [facility] Other 02-08-2023 NoteChief Complaint consultation for colonoscopy [...] Years., 11/08/2022 Family History (more content not included)...[facility]:Result Comment: Electronically Signed By: SOPHIA PINEDA, Efrain Layne\Date and Time Signed: 11/08/22 15:29 [id number] Evaluation note* Encounter Date Diagnosis Assessment Notes [...] - G47.33) presently compliant with machine, etc [facility] Other 01-13-2023 Evaluation note* Encounter Date Diagnosis [...] Patient is interested in meeting with our soil technician, telephone encounter started to connect with [...] the week. Encouraged to take advantage of soil technician available at [facility] that can help work around limitations. She is open to meeting with our soil technician for guidance on exercises she can complete with her severe limitations from her foot, hip and back. Telephone encounter started. Oct, Plantar fasciitis (ICD-10 - M72.2) Oct, Arthritis of hip (ICD-10 - M16.10) Oct, Impaired fasting glucose (ICD-10 - R73.01) [facility] Other 12-07-2022 Evaluation note* Encounter Date Diagnosis [...] while she works on her weight loss. [facility] Other 11-18-2022 NotePROCEDURE: XR HIP RT 2 [...] Electronically authenticated by: SHAWNEE KELLY Date: 2022-08-18 15:54[facility]11-18-2022 NotePROCEDURE: XR FOOT LT MIN 3 [...] Electronically authenticated by: SHAWNEE KELLY Date: 2022-08-18 15:42[facility]09-16-2022 NotePROCEDURE: XR FOOT LT MIN 3 [...] Electronically authenticated by: SHAWNEE KELLY Date: 2022-06-16 16:24[facility]09-16-2022 NotePROCEDURE: XR FOOT LT MIN 3 [...] Electronically authenticated by: SHAWNEE KELLY Date: 2022-06-16 16:24[facility]08-11-2022 NotePROCEDURE: XR FOOT LT MIN 3 VIEWS COMPARISON: 04/24/2022 HISTORY: Pain in left foot FINDINGS: BONES:Stable postsurgical changes with subtalar fusion, medial midfoot hindfoot fusion and spacer at the first tarsometatarsal joint. No mechanical failure. Severe degenerative changes. SOFT TISSUES:Extensive soft tissue swelling.Dorsal woundvac EFFUSION:None visible. OTHER: Negative. IMPRESSION: Stable degenerative and post surgical changes Electronically authenticated by: SHAWNEE KELLY Date: 2022-05-11 17:16[facility]07-25-2022 NotePROCEDURE: XR FOOT LT MIN 3 [...] Electronically authenticated by: ARIELA SCHWAB Date: 2022-04-24 14:11[facility]07-25-2022 NotePROCEDURE: XR FOOT LT 2V HISTORY: [...] authenticated by: ARIELA SCHWAB Date: 2022-04-24 11:54[facility] [id number] NotePROCEDURE: XR FOOT LT MIN 3 VIEWS [...] Electronically authenticated by: ARIELA SCHWAB Date: 2022-04-22 20:52[facility]07-15-2022 NotePROCEDURE: XR FOOT LT MIN 3 [...] Electronically authenticated by: SHAWNEE KELLY Date: 2022-04-14 17:03[facility] [id number] Evaluation note* Encounter Date Diagnosis Assessment Notes [...] Patient care instructions given in writting by [facility] document. [facility] Other 09-23-2021 Evaluation note* Encounter Date Diagnosis [...] note writ ten by Safia Calderon CMA, Anime Designer. Edited and approved by Dr. Junior Mcgowan MD. [facility] Other Evaluation + Plan note No data available for this section General Surgery [facility] Evaluation noteNo InformationNort [employer] Other Evaluation noteNo assessment information available [facility] Work Phone: Evaluation note* Diagnosis Onset Date Resolution Status Change in voice acute Essential (primary) hypertension acute Family history of von Willebrand disease acute Hyperlipidemia acute Hypothyroidism acute [facility] Work Phone: Evaluation note* Diagnosis Onset Date Resolution Status Change in voice acute Essential (primary) hypertension acute Family history of von Willebrand disease acute Hyperlipidemia acute Hypothyroidism acute Medicare annual wellness visit, subsequent acute [facility] Work Phone: History general Narrative - Reported* Type Description Date Medical History DDD (degenerative disc disease), lumbar Surgical History hip replacement Surgical History tonsillectomy Surgical History carpal tunnel release bilateral Hospitalization History see above [facility] Other History general Narrative - Reported* Type Description Date Medical History DDD (degenerative disc disease), lumbar Medical History spinal stenosis Surgical History hip replacement Surgical History tonsillectomy Surgical History carpal tunnel release bilateral Surgical History vein ablasion Hospitalization History see above [facility] Other Hiscqvs general Narrative - Reported* Type Description Date Medical History DDD (degenerative disc disease), lumbar Medical History spinal stenosis Surgical History hip replacement Surgical History tonsillectomy Surgical History carpal tunnel release bilateral Surgical History vein ablasion Surgical History skin graft left foot Hospitalization History see above [facility] Other history general Narrative - Reported* Type Description Date [...] x3 202 2 Hospitalization History see above [facility] Other Hisywzj general Narrative - Reported* Type Description Date [...] HIp replacement 09/03/23 Hospitalization History see above [facility] Other Hospital Discharge instructions No data available for this section [facility] Discharge instructions Additional Instructions Joint Replacement Discharge Instructions Your safety during your recovery process is important to us. Please seek immediate emergency care if you have sudden chest pain or shortness of breath. Additionally, please call our office at [phone] should any of the following occur: wound [...] to walk without your walker and your daytime caregiver until the therapist checks you the [...] and/or laxatives as directed. You may take pvfj-flp-nuwoagz Benadryl if itching occurs without a rash or hives. Icing and elevation will help relieve pain as well, do not underestimate the power of ice and elevation. We do recommend that you stop taking narcotic pain medications by 4-6 weeks after surgery and if necessary, continue to use anti-inflammatory medications such as Mobic (meloxicam), Celebrex (celecoxib), or an lmpz-rqf-eviyiox medication (Aleve, Motrin, Ibuprofen, etc). Driving an [...] feel free to call our office at [phone]. You are a priority of ours and we will not be upset with you if you call. We would much rather you call to confirm aspects of your recovery process as opposed to possibly hindering your recovery with inappropriate care. We are committed to providing you with the best care possible. David Mcfarland II, MD Updated 12/15/2022[facility] Work Phone: Progress note No data available for this section General Surgery [place] Reason for referral (narrative)* Reason Appt: Diagnosis 1 Depression (F32.9) Referral Organization [facility] Referring Provider First Name Rolando Referring Provider Last Name Jasmin Referring Provider Specialty Internal Me dicine Referred Organization [facility] Natalia Referred Address [address] [place], [place],[address] Referred Provider Specialty Karina s Referral Priority Routine General Notes Anna Jose 2022 01:07:39 PM >Please contact patient to schedule. [facility] Other Summary Purpose Family History Relationship Condition [...] RD WM f/u Sick-Did not test for [phone] Reason for Visit Sinusitis, acute max illary BMI 40.0-44.9, adult Fatty liver Hyperlipidemia Hypertension Pre-diabetes Aftercare following joint replacement Chest congestion Cough Chief Complaint Rd Wm F/U Obesity z47.[address] WM f/u Sinus infection WMN F/UP Z47.1 - Aftercare following joint replacement surg [address] WM f/u Sick-Did not test for [id number] Reason for Visit Sinusitis, acute max illary BMI 40.0-44.9, adult Fatty liver Hyperlipidemia Hypertension Pre-diabetes Aftercare following joint replacement Bronchitis Chest congestion Cough Chief Complaint Rd Wm F/U Obesity z47.[address] WM f/u BH Sinus infection WMN F/UP Z47.1 - Aftercare following joint replacement surg [address] WM f/u Sick-Did not test for [phone] RD WM f/u Reason for Visit Sinusitis, [...] RD WM f/u Sick-Did not test for [id number] RD WM f/u Habit forming Reason for Visit Sinusitis, acute max illary BMI 40.0-44.9, adult Fatty liver Hyperlipidemia Hypertension Pre-diabetes Aftercare following joint replacement Bronchitis Chest congestion Cough BMI 40.0-44.9, adult Fatty liver Hyperlipidemia Pre-diabetes Chief Complaint Z47.1 - Aftercare fo [facility] joint replacement surg [address] WM f/u Sick-Did not test for [id number] RD WM f/u Habit forming Reason for Visit Aftercare following joint replacement Bronchitis Chest congestion Cough BMI 40.0-44.9, adult Fatty liver Hyperlipidemia Pre-diabetes Chief Complaint RD WM f/u Sick-Did not test for [phone] RD WM f/u Habit forming Reason for [...] Hyperlipidemia Hypothyroidism Medicare annual wellness visit, subsequent Chief Complaint RD WM f/u WELLNESS RD WM f/u Infusion f/u Reason for Visit Change in voice Essential (primary) hypertension Family history of von Willebrand disease Hyperlipidemia Hypothyroidism Medicare annual wellness visit, subsequent Additional Source Comments INFORMATION SOURCE (unrecogn ized section and content) DATE CREATED AUTHOR 04/29/2021 [facility] DATE CREATED AUTHOR AUTHOR'S ORGANIZ ATION 12/20/2022 Isidro Koby [facility] DATE CREATED AUTHOR AUTHOR'S ORGANIZ ATION 03/09/2023 [facility] DATE CREATED AUTHOR AUTHOR'S ORGANIZ ATION 03/03/2024 [facility] DATE CREATED AUTHOR AUTHOR'S ORGANIZ ATION 07/27/2024 [facility] REASON FOR VISIT (unrecogniz ed section [...] End: December 26, 2023 Carrie Bhakta APRN HEAT [employer] SUPERVISOR-C Attending Provider Act pradeep Start: December 26, [...] June 19, 2024 End: June 19, 2024 Team Status: Active Member Role Status Dates Waqas Pierce MD Primary Care Provider Active Start: July 15, 2024 Suze Hurtado MD Attending Provider Active St art: July 15, 2024 Team Status: Inactive Member Role Status Dates Waqas Pierce MD Primary Care Provide r, Attending Provider Active Start: August 04, 2024 End: August 04, 2024 Goals (unrecognized section and content) Goals [...] BE BASED ON THE PRIMARY CLINICAL RECORDS. [facility]. provides no warranty or guarantee of the accuracy or completeness of information in this document.
--- NOTE | 2024-08-18 17:58 | P.CN_ITS ---
Consult Note: HPI Data of Consult Patient: new to practice Consult date: 08/18/24 Requesting Physician: Angel Hill MD Primary Care Provider: Yuliana Cortez MD Consult Narrative Reason for consult: low back, bilateral LE pain Narrative: 64yof who presents for evaluation. longstanding low back and bilateral LE pain. previously had injection therapy >3 years ago, which provided relief. no advanced imaging available for review since that time. has engaged in a series of provider directed home exercises > 6 weeks, without lasting benefit. uses otc pain meds as needed. denies adverse med side effects. cc:: CC: Angel Hill MD Review of Systems ROS Status of ROS 10 or more systems reviewed and unremark able except as noted in history and below Meds Home Medications and Allergies Home Medications ?Medication ?Instructions ?Recorded ?Confirmed ?Type acetaminophen 325 mg tablet 325 mg PO BID PRN pain 08/18/24 08/18/24 History (Tylenol) atorvastatin 20 mg tablet 20 mg PO DAILY 08/18/24 08/18/24 History cholecalciferol (vitamin D3) 1,250 50,000 unit PO QWEEK 08/18/24 08/18/24 History mcg (50,000 unit) capsule coenzyme Q10 75 mg capsule (Ultra 75 mg PO DAILY 08/18/24 08/18/24 History CoQ10) levothyroxine 75 mcg capsule 75 mcg PO DAILY 08/18/24 08/18/24 History loratadine 5 mg-pseudoephedrine ER 1 tab PO DAILY PRN allergy symptoms 08/18/24 08/18/24 History 120 mg tablet,extended release,12hr (Claritin-D 12 Hour) metoprolol succinate 25 mg 25 mg PO DAILY 08/18/24 08/18/24 History tablet,extended release 24 hr pantoprazole 40 mg tablet,delayed 40 mg PO DAILY 08/18/24 08/18/24 History release Allergies Allergy/AdvReac Type Severity Reaction Status Date / Time Penicillins Allergy Unknown Unknown Verified 08/18/24 16:21 seritonin Allergy Unknown Unknown Uncoded 08/18/24 16:21 Exam Narrative Exam Narrative: Psych-alert and oriented x 3. Attentive and appropriate, constitutionally normal, displays normal mood and affect per situation. There are no obvious deficits in memory, reasoning, or intellect.? Skin-no obvious rashes, bruising, erythema noted to the patient's area of pain.? Extremities- extremities are warm with minimal edema and palpable pulses. Lumbar-tenderness to palpation noted in the lumbar spine and paraspinal musculature. Pain is elicited with flexion, extension, and lateral rotation of the lumbar spine. Range of motion is diminished with these motions. Facet loading maneuvers are positive..? Strength-noted to be unremarkable with the exception of decreased strength rated at 4 out of 5 in bilateral quadriceps femoris, anterior tibialis. Sensory-no notable sensory deficits in the bilateral lower extremities to touch or pinprick in all dermatomal distributions with the exception to decreased sensation to the bilateral L3, 4, 5 dermatomal distribution Coordination remains intact.? Gait remains non-antalgic Assessment and Plan Assessment and Plan (1) Lumbar stenosis with neurogenic claudication: Plan 64yof who presents for evaluation. failed conservative measures, as noted. imaging has not been updated for several years, so would like her to undergo lumbar mri without contrast, as well as xr sacrum. she is in agreement. meds reviewed, no changes. follow up after imaging.
== END 2024-08-18 13:21 | disposition home or self-care (01) ==
LOC: PM 13:20
PROVIDERS: PCP Family Medicine; Visit Provider Anesthesiology
DX: M48.062 Spinal stenosis, lumbar region with neurogenic claudication (principal); M51.379 Other intervertebral disc degeneration, lumbosacral region without mention of lumbar back pain or lower extremity pain; Z96.643 Presence of artificial hip joint, bilateral
CPT/HCPCS: 72220; G0463

== ENCOUNTER 2024-08-18 14:25 | Outpatient (OUT) | payer MEDICARE, SELFPAY ==
--- NOTE | 2024-08-18 14:36 | XR_ITS ---
The [address] [address] Patient Name: NAVARRO SMITH MRN: [id number] date: 1960 Sex: F Assigned Patient Location: [facility] Current Patient Location: Accession/Order Number: [id number] Exam Date: 08/18/2024 14:50 Report Date: 08/21/2024 05:52 At the request of: ANDRIUS GIEDRAITIS Procedure: XR sacrum coccyx min 2V PROCEDURE: XR sacrum coccyx min 2V COMPARISON: XR L-spine 08/18/2022 HISTORY: Lumbar Stenosis With Neurogenic Claudication ; sacral pain FINDINGS: SACRUM: No fracture, disruption of the sacral ala line, or cortical irregularity. COCCYX: No fracture or suspicious alignment. SOFT TISSUES: No widening of the sacroiliac joints. No radiopaque foreign body. OTHER: Marked disc space narrowing L5-S1. Bilateral hip replacements. XR/XR sacrum coccyx min 2V IMPRESSION: 1. No acute abnormality or significant degenerative changes of the sacrum and sacroiliac joints. 2. L5-S1 marked degenerative disc disease; not appreciably changed. Electronically authenticated by: ARIELA SCHWAB Date: 08/21/2024 05:52
== END 2024-08-18 14:26 | disposition home or self-care (01) ==
LOC: RAD 14:29
PROVIDERS: PCP Family Medicine; Visit Provider Anesthesiology
DX: M48.062 Spinal stenosis, lumbar region with neurogenic claudication (principal); M51.379 Other intervertebral disc degeneration, lumbosacral region without mention of lumbar back pain or lower extremity pain; Z96.643 Presence of artificial hip joint, bilateral
CPT/HCPCS: 72220

== ENCOUNTER 2024-08-26 10:23 | Outpatient (OUT) | payer MEDICARE, SELFPAY ==
--- NOTE | 2024-08-26 | PCN_ITS ---
CARDIAC STRESS TEST Requesting Physician: Sameer Sanchez M.D. Procedure Date: 08/26/2024 Patient underwent an adenosine stress, which was ordered by Dr. Sanchez. At baseline, the heart rate was 75 beats per minute, with a blood pressure of 148/76 mm/Hg. Following the infusion, the heart rate increased to 113 beats per minute, with a blood pressure of 148/76 mm/Hg. Baseline EKG showed evidence of sinus rhythm with normal interval. With infusion, there was no evidence of ST segment changes concerning for ischemia. No arrhythmias were noted. IMPRESSION: 1. No EKG evidence of ischemia noted on stress test. 2. Imaging portion of the stress test to be dictated separately by Radiology. ASHLEY
--- NOTE | 2024-08-26 10:30 | NM_ITS ---
Patient Name: NAVARRO SMITH MR#: [id number] : 1960 Exam Date: 08/26/2024 Ordering Doctor: ANITA TAFOYA M.D. RADIOLOGY REPORT PROCEDURE: NM ROBYN PERF SPECT REST STR COMPARISON: None. INDICATIONS: CHEST PAIN, DYSPNEA TECHNIQUE: Exam Description: Stress/Rest two day protocol gated SPECT Rest Imagin.8 mCi Tc-99m Cardiolite IV on 08/27/2024 Stress Imaging 26.2 mCi Tc-99m Cardiolite IV on 08/26/2024 Exercise Protocol: 0.4 mg Lexiscan given IV Heart Rate (bpm): Rest: 75 Max: 113 PMHR: 71 Blood Pressure: Rest: 148/76 Max: 148/76 Symptoms: Rest and peak stress ECG findings were pending and the exercise portion of the study was pending per attending physician Dr. MINAYA . For more details please see separate cardiac stress test report. FINDINGS: QUALITY OF STUDY: Excellent. PERFUSION DEFECT: LOCATION: Mid-anteroseptal. SIZE: Small (1-2 segments). SEVERITY: Mild. TYPE: Persistent. WALL MOTION: Normal. LV SIZE: Normal. 76 mL. TID / TCD: None; 1.0 LVEF: Normal. Calculated EF 73%. SUMMARY: Myocardial perfusion imaging study has ABNORMAL findings. CONCLUSION: 1. No acute or reversible ischemia. 2. Small perfusion defect involving the mid anterior septal wall versus breast attenuation artifact. 3. Normal wall motion, left ventricle volume, and ejection fraction. Dictated by: Jace Armando M.D. on 08/27/2024 at 16:33 Approved by: Jace Armando M.D. on 08/27/2024 at 16:35
--- NOTE | 2024-08-26 11:12 | PC.NURSE ---
Nursing Note Cardiac Stress Test Reviewed: Medication, allergies and patient history reviewed. Stress Test: [x ] Patient tolerated stress test well. [ ] Patient unable to tolerate walking on treadmill. Switched to Lexiscan stress test. [x ] No chest pain noted per patient [ ] Chest pain that resolved prior to leaving stress lab. [ x] No dyspnea noted. [ ] Dyspnea that resolved prior to leaving stress lab. [x ] Patient left stress lab asymptomatic and hemodynamically stable. [ ] Patient taken to the Emergency Room due to non-resolving symptoms following stress test. [ ] Patient achieved target heart rate. [ ] Patient unable to achieve target heart rate. [ ] Aminophylline administered as reversal agent to Lexiscan (Regadenoson). [ ] Nitro administered. Nursing Comments: Patient complained of a slight headache following the lexiscan injection. She reported that it was resolved prior to leaving the stress lab.
[2024-08-26] MEDS: REGADENOSON 0.4 MG/5 ML SYRINGE IV (11:13)
== END 2024-08-26 10:24 | disposition home or self-care (01) ==
LOC: CARD 10:23
PROVIDERS: PCP Family Medicine; Visit Provider Internal Medicine Cardiovascular Disease
DX: R07.89 Other chest pain (principal); R06.02 Shortness of breath
CPT/HCPCS: 78452; 93017; A9500; J2785

== ENCOUNTER 2024-09-03 08:42 | Outpatient (OUT) | payer MEDICARE, SELFPAY ==
--- NOTE | 2024-09-03 09:00 | CA_ITS ---
Patient Name: NAVARRO SMITH MR#: [id number] : 1960 Exam Date: 09/03/2024 Ordering Doctor: ANITA TAFOYA M.D. ECHOCARDIOGRAM REPORT PROCEDURE: CA ECHO DOPPLER COMPLETE INDICATIONS: Chest pain, shortness of breath, hypertension, sleep apnea COMPARISON: None. DESCRIPTION: COMPLETE ECHOCARDIOGRAM Real-time transthoracic echocardiography with 2D, M-mode, spectral and color flow Doppler performed. QUALITY: Technically difficult due to patients condition. LEFT VENTRICLE: Normal chamber size. Thickened septal wall. Systolic function is normal. LV EF: Normal left ventricular ejection fraction, (>55%). DIASTOLIC: Normal diastolic function. ATRIAL SEPTUM: LEFT ATRIUM: Normal chamber size. RIGHT ATRIUM: Normal chamber size. RIGHT VENTRICLE: Normal chamber size. TRICUSPID VALVE: Normal mobility and thickness. No stenosis with trivial regurgitation. Doppler studies reveal mildly (35-45) elevated right sided pressures. RVSP 35 mmHg MITRAL VALVE: Normal mobility and thickness. No evidence of mitral valve stenosis. There is no mitral annular calcification. AORTIC VALVE: Not well visualized. No evidence of aortic valve stenosis. No aortic regurgitation. AORTIC ROOT: Normal diameter and appearance. PULMONIC VALVE: Not well visualized. No regurgitation. PERICARDIUM: No evidence of pericardial effusion. IVC: IVC is dilated (2.7 cm) with no collapse. PLEURA: CONCLUSION: 1. Normal ventricular size and systolic function. LVEF is estimated at 55 to 60%. 2. Normal diastolic function. 3. No significant valvular dysfunction. 4. Mildly elevated right-sided pressures. 5. Technically difficult study with limited visualization of the cardiac valves. Adult Echocardiography Procedure Report Left Ventricle LVEDD (3.7 - 5.6 cm): 2.71 cm LVESD (2.2 - 4.0 cm): 2.02 cm LVIVS thickness (0.6 - 1.2 cm): 1.04 cm LVPW thickness (0.5 - 1.0 cm): 0.95 cm e': 0.13 m/s E - e': 6.70 LVOT Max Gradient: 3.02 mm[Hg] LVOT Area (cm2): 0.87 m/s Peak Velocity (LVOT): 0.87 m/s LVOT Diameter 2.35 cm Left Atrium Mitral Valve MV E to A Ratio: 0.92 Mitral Valve A-Wave Peak Velocity: 0.92 m/s Mitral Valve E-Wave Peak Velocity: 0.85 m/s Right Ventricle Aorta AO Root Diam: 2.68 cm Aortic Valve AoV Area (Peak Jose Alejandro): 4.09 cm2, 4.09 cm2 Peak Velocity(Antegrade Flow): 0.92 m/s Peak Gradient(Antegrade Flow): 3.42 mm[Hg] Tricuspid Valve Peak Velocity (Regurgitant Flow): 2.24 m/s Pulmonic Valve Peak Velocity: 0.77 m/s Peak Gradient: 2.40 mm[Hg] Right Atrium Dictated by: Brijesh Robertson M.D. on 09/03/2024 at 14:25 Approved by: Brijesh Robertson M.D. on 09/03/2024 at 14:28
== END 2024-09-03 08:43 | disposition home or self-care (01) ==
LOC: CARD 08:42
PROVIDERS: PCP Family Medicine; Visit Provider Internal Medicine Cardiovascular Disease
DX: R07.89 Other chest pain (principal); R06.02 Shortness of breath
CPT/HCPCS: 93306

== ENCOUNTER 2024-09-04 08:20 | Outpatient (OUT) | payer MEDICARE, SELFPAY ==
--- NOTE | 2024-09-04 08:24 | MR_ITS ---
[address] [address] Patient Name: NAVARRO SMITH MRN: [id number] date: 1960 Sex: F Assigned Patient Location: MRI Current Patient Location: MRI Accession/Order Number: [id number] Exam Date: 09/04/2024 08:35 Report Date: 09/04/2024 15:23 At the request of: ABRAN ISAAC Procedure: MR lumbar spine wo con EXAMINATION: MR lumbar spine wo con HISTORY: Lumbar Stenosis, Neuro claudication . to the right hip, leg, right leg numbness. COMPARISON: None. TECHNIQUE: Multiplanar, multisequence MRI images of the lumbar spine without intravenous contrast. FINDINGS: There is dextroconvex scoliosis with apex at L3. Straightening of the lumbar spine. No subluxation. No compression fractures. Moderate disc space narrowing in the lower thoracic spine to the L2-L3 level and mild disc space narrowing in the remaining lumbar spine. Modic type I changes at L1-L2. Conus medullaris terminates at L2. No abnormal signal in the distal spinal cord and the conus medullaris. L5-S1: Broad-based disc protrusion, moderate facet arthropathy and ligamentum flavum hypertrophy. Mild spinal canal, moderate to severe right and moderate left foraminal stenosis. L4-L5: Disc bulge, severe facet arthropathy and ligamentum flavum hypertrophy. Moderate to severe spinal canal and bilateral lateral recess stenosis and mild bilateral foraminal stenosis. L3-L4: Disc bulge and moderate facet arthropathy. Mild to moderate spinal canal and left foraminal stenosis. L2-L3: Disc bulge and moderate facet arthropathy. Superimposed small right subarticular disc extrusion or sequestration with inferior migration. No spinal canal stenosis. Minimal bilateral foraminal stenosis. L1-L2: Disc bulge and mild facet arthropathy. No spinal canal stenosis. Moderate right foraminal stenosis. T12-L1: Minimal disc bulge without spinal canal or significant neural foraminal stenosis. MR/MR lumbar spine wo con IMPRESSION: 1. Moderate multilevel degenerative disc disease and moderate to severe multilevel facet arthropathy in the lumbar spine. 2. There is moderate to severe spinal canal stenosis at L4-L5 and mild to moderate spinal canal stenosis at L3-L4. There are several levels of significant foraminal stenosis as described. Electronically authenticated by: TERA NOLAN Date: 09/04/2024 15:23
== END 2024-09-04 08:21 | disposition home or self-care (01) ==
LOC: MRI 08:20
PROVIDERS: PCP Family Medicine; Visit Provider Anesthesiology
DX: M48.062 Spinal stenosis, lumbar region with neurogenic claudication (principal); M51.369 Other intervertebral disc degeneration, lumbar region without mention of lumbar back pain or lower extremity pain
CPT/HCPCS: 72148

== ENCOUNTER 2024-09-11 07:40 | Outpatient (RCR) | payer MEDICARE, SELFPAY ==
[2024-09-11 10:17] LABS: Basophils Absolute Auto 0.1 10^3/uL (0.0-0.1); Basophils Percent Auto 1.7 % (0.2-2.0); Eosinophils Absolute Auto 0.1 10^3/uL (0.0-0.7); Eosinophils Percent Auto 1.5 % (0.9-7.0); Hematocrit 45.1 % (36.0-48.0); Hemoglobin 14.2 g/dL (12.0-16.0); Immature Granulocytes Abs Auto 0.02 10^3/uL (0.00-0.03); Immature Granulocytes Pct Auto 0.4 % (0.0-0.5); Lymphocytes Absolute Auto 1.7 10^3/uL (1.2-3.8); Lymphocytes Percent Auto 31.6 % (20.5-60.0); Mean Corpuscular HGB Conc 31.5 g/dL (29.9-35.2); Mean Corpuscular Hemoglobin 26.1 pg (26.7-34.0); Mean Corpuscular Volume 82.8 fL (81.0-99.0); Mean Platelet Volume 9.1 fL (9.5-13.5); Monocytes Absolute Auto 0.4 10^3/uL (0.3-0.8); Monocytes Percent Auto 8.1 % (1.7-12.0); Neutrophils Percent Auto 56.7 % (43.0-75.0); Platelet Count 324 10^3/uL (150-450); Red Blood Count 5.45 10^6/uL (4.20-5.40); Red Cell Distribution Width 24.2 % (11.0-15.0); White Blood Count 5.3 10^3/uL (4.0-11.0)
[2024-09-11 11:20] LABS: Percent Iron Saturation 19.4 %
== END 2024-09-15 08:05 | disposition home or self-care (01) ==
LOC: HEMC 07:40
PROVIDERS: PCP Family Medicine; Visit Provider Internal Medicine Hematology & Oncology
DX: D64.9 Anemia, unspecified (principal); D50.9 Iron deficiency anemia, unspecified; K90.9 Intestinal malabsorption, unspecified; Z87.891 Personal history of nicotine dependence; Z96.641 Presence of right artificial hip joint
CPT/HCPCS: 36415; 82728; 83540; 83550; 85025; G0463

== ENCOUNTER 2024-09-16 19:21 | Emergency (ER) | payer MEDICARE, SELFPAY ==
[2024-09-16 19:32] VITALS: BP 136/91; PULSE 98; TEMP 37.7; O2SAT 95; BMI 44.5
--- NOTE | 2024-09-16 19:39 | XR_ITS ---
The [address] [address] Patient Name: NAVARRO SMITH MRN: [id number] date: 1960 Sex: F Assigned Patient Location: ER Current Patient Location: ED.MAIN Accession/Order Number: [id number] Exam Date: 09/16/2024 19:50 Report Date: 09/16/2024 20:53 At the request of: VIVIAN HOPKINS Procedure: XR chest 1V EXAMINATION: XR chest 1V, , 09/16/2024 7:50 PM EST INDICATION: cough, fever HISTORY: Ordering Provider Reason for Exam: cough, fever Technologist Note: Additional: COMPARISON: None. TECHNIQUE: Chest x-ray: One view. FINDINGS: Large hiatal hernia is seen. Left lung base atelectasis versus small infiltrate is seen. Heart is normal in size. Bony thorax is unremarkable. XR/XR chest 1V IMPRESSION: Large hiatal hernia is seen. Left lung base atelectasis versus small infiltrate is seen. Electronically authenticated by: LORENA MARCH Date: 09/16/2024 20:53
--- NOTE | 2024-09-16 19:40 | ED_ITS ---
HPI HPI - General Adult General Chief complaint: Urogenital-Female Stated complaint: fever, achy Time Seen by Provider: 09/16/24 19:36 Source: patient Source information: sinus congestion, dysuria Mode of arrival: walk-in History of Present Illness HPI narrative: 64 year old female presents to the ED. Reports fever, chills, dizziness, cough today. She has had sinus drainage for about 2 weeks. Reports intermittent dysuria for some time. Denies SOB, ear pain, abd pain, N/V/D, hematuria. Denies CP, SOB. Related Data Home Medications ?Medication ?Instructions ?Recorded ?Confirmed acetaminophen 325 mg tablet 325 mg PO BID PRN pain 08/18/24 09/16/24 (Tylenol) atorvastatin 20 mg tablet 20 mg PO DAILY 08/18/24 09/16/24 cholecalciferol (vitamin D3) 1,250 50,000 unit PO QWEEK 08/18/24 09/16/24 mcg (50,000 unit) capsule coenzyme Q10 75 mg capsule (Ultra 75 mg PO DAILY 08/18/24 09/16/24 CoQ10) levothyroxine 75 mcg capsule 75 mcg PO DAILY 08/18/24 09/16/24 loratadine 5 mg-pseudoephedrine ER 1 tab PO DAILY PRN allergy symptoms 08/18/24 09/16/24 120 mg tablet,extended release,12hr (Claritin-D 12 Hour) metoprolol succinate 25 mg 25 mg PO DAILY 08/18/24 09/16/24 tablet,extended release 24 hr pantoprazole 40 mg tablet,delayed 40 mg PO DAILY 08/18/24 09/16/24 release Previous Rx's ?Medication ?Instructions ?Recorded azithromycin 250 mg tablet See Rx Instructions PO .COMPLEX #6 09/16/24 (Zithromax Z-Wei) tabs Allergies Allergy/AdvReac Type Severity Reaction Status Date / Time Penicillins Allergy Unknown Unknown Verified 08/18/24 16:21 seritonin Allergy Unknown Unknown Uncoded 08/18/24 16:21 Opioid HPI Opioid Management Most Recent Opioid Data: No Data to Display Review of Systems ROS Constitutional Reports: fever and chills Ears, nose, mouth, and throat Reports: throat pain, nasal discharge and nasal congestion; Denies: neck pain, throat swelling, ear pain or ear discharge Cardiovascular Denies: chest pain Respiratory Reports: cough; Denies: shortness of breath Gastrointestinal Denies: abdominal pain, nausea, vomiting or diarrhea Genitourinary Reports: painful urination; Denies: urinary frequency, urinary urgency or blood in urine Integumentary/Breast Denies: rash Neurological Reports: dizziness; Denies: headache, numbness in extremities, weakness in extremities, lack of coordination, confusion or slurred speech PFSH PFS Social History Little interest or pleasure in doing things: not at all Feeling down, depressed, or hopeless: not at all Exam Constitutional Vital Signs, click to edit/add: Last Vital Signs Temp 99.9 F 09/16/24 19:32 Pulse 98 H 09/16/24 19:32 Resp 16 09/16/24 19:32 BP 136/91 09/16/24 19:32 Pulse Ox 95 09/16/24 19:32 O2 Del Method Room Air 09/16/24 19:32 Common normals: no apparent distress and oriented x3 General appearance: cooperative HENOK Common normals: normocephalic Face and sinus: normal facial exam Nose: nasal discharge External ear: external ears normal External auditory canal: EACs normal Mouth: oral and palatal mucosa normal, lip normal and tongue normal Throat: posterior oropharynx abnormal erythema; no edema and no exudates; uvula not midline Eye Common normals: PERRL, EOMs intact bilaterally, conjunctivae normal and no scleral icterus Neck & C-Spine Common normals: supple Chest Chest: symmetrical chest wall rise Respiratory Common normals: normal respiratory effort and clear to auscultation bilaterally Effort & inspection: able to speak in complete sentences and symmetric chest movement Cardio Common normals: regular rate and regular rhythm Neuro Common normals: oriented x3, CN's II-XII intact bilaterally and moves all extremities Sensorium/orientation: awake and alert Speech: speech normal Gait (neuro): normal gait Course Vital Signs Vital signs: Vital Signs Temperature 99.9 F 09/16/24 19:32 Pulse Rate 98 H 09/16/24 19:32 Respiratory Rate 16 09/16/24 19:32 Blood Pressure 136/91 09/16/24 19:32 Pulse Oximetry 95 09/16/24 19:32 Oxygen Delivery Method Room Air 09/16/24 19:32 Temperature 99.9 F 09/16/24 19:32 Pulse Rate 98 H 09/16/24 19:32 Respiratory Rate 16 09/16/24 19:32 Blood Pressure 136/91 09/16/24 19:32 Pulse Oximetry 95 09/16/24 19:32 Oxygen Delivery Method Room Air 09/16/24 19:32 Medical Decision Making MDM Narrative Medical decision making narrative: Urinalysis was unremarkable. Strep, Covid-19, and influenza were negative. Chest x-ray showed left lung base atelectasis versus small infiltrate. Findings were discussed. A prescription was provided for Zithromax. Follow up with pcp for a recheck, further evaluation and treatment. Return precautions were discussed. Differential Diagnosis Differential Diagnosis: Covid-19, pneumonia, influenza, strep, UTI, viral illness Medical Records Medical records reviewed: Yes I reviewed the patient's medical records Lab Data Lab results reviewed: Yes I reviewed the patient's lab results Labs: Lab Results 09/16/24 09/16/24 Range/Units 19:30 19:40 Urine Color Lt. yellow (YELLOW) Urine Clarity Clear (CLEAR) Urine pH 6.0 (5.0-9.0) Ur Specific [place] 1.025 (1.005-1.025) Urine Protein Negative (NEG/TRACE) mg/dL Urine Glucose (UA) Negative (NEGATIVE) mg/dL Urine Ketones Negative (NEGATIVE) mg/dL Urine Occult Blood Negative (NEGATIVE) Urine Nitrite Negative (NEGATIVE) Urine Bilirubin Negative (NEGATIVE) Urine Urobilinogen 0.2 (0.2-1.0) EU/dL Ur Leukocyte Esterase Trace A (NEGATIVE) Urine RBC 0-2 (0-2) #/HPF Urine WBC 0-2 A (NONE SEEN) #/HPF Ur Squamous Epith Cells Rare (NONE/RARE) #/LPF Urine Crystals None seen (None Seen) #/HPF Urine Bacteria None seen (NONE SEEN) #/HPF Urine Casts None seen (NONE SEEN) #/LPF Urine Mucus None seen (NONE SEEN) Ur Culture Indicated? No Influenza Type A Ag Negative Influenza Type B Ag Negative SARS-CoV-2 Ag (CV2AG) Negative (NEGATIVE) Streptococcus Screen Negative Imaging Data Chest x-ray: Attestation: I have reviewed the pertinent imaging results. Radiologist's impression: ITS Impressions Chest X-Ray 09/16/24 19:39 IMPRESSION: Large hiatal hernia is seen. Left lung base atelectasis versus small infiltrate is seen. Electronically authenticated by: LORENA GUTIERREZJAYDON Date: 09/16/2024 20:53 Discharge Plan Discharge Chief Complaint: Urogenital-Female Clinical Impression: Pneumonia Patient Disposition: Home, Self-Care Time of Disposition Decision: 21:02 Condition: Good Mode of Transportation: Private Vehicle Prescriptions / Home Meds: New azithromycin [Zithromax Z-Wei] 250 mg tablet See Rx Instructions .ROUTE .COMPLEX Qty: 6 0RF Rx Instructions: For 250 mg dose pack: take 500 mg today (day 1), then 250 mg for 4 days (days 2-5) No Action atorvastatin 20 mg tablet 20 mg PO DAILY Claritin-D 12 Hour 5-120 mg tablet extended release 12 hr 1 tab PO DAILY PRN (Reason: allergy symptoms) levothyroxine 75 mcg capsule 75 mcg PO DAILY metoprolol succinate 25 mg tablet extended release 24 hr 25 mg PO DAILY pantoprazole 40 mg tablet,delayed release (DR/EC) 40 mg PO DAILY acetaminophen [Tylenol] 325 mg tablet 325 mg PO BID PRN (Reason: pain) cholecalciferol (vitamin D3) 1,250 mcg (50,000 unit) capsule 50,000 unit PO QWEEK Ultra CoQ10 75 mg capsule 75 mg PO DAILY Print Language: Setswana Instructions: Fever in Adults (ED), Community Acquired Pneumonia (ED) Additional Instructions: Return to the ER for worsening symptoms. Referrals: Yuliana Cortez MD [Primary Care Provider] - 1 week
[2024-09-16 19:49] LABS: Bilirubin Urine NEGATIVE (NEGATIVE); Blood Urine NEGATIVE (NEGATIVE); Clarity Urine CLEAR (CLEAR); Color Urine LT. YELLOW (YELLOW); Glucose Urine UA NEGATIVE (NEGATIVE); Ketones Urine NEGATIVE (NEGATIVE); Leukocyte Esterase Urine TRACE (NEGATIVE); Nitrite Urine NEGATIVE (NEGATIVE); Protein Urine NEGATIVE (NEG/TRACE); Specific Gravity Urine 1.025 (1.005-1.025); Urobilinogen Urine 0.2 EU/dL (0.2-1.0)
[2024-09-16 19:53] LABS: Urine Microscopic Indicated YES
--- OUTSIDE RECORDS SUMMARY | 2024-09-16 19:54 | XMS_ITS | CCD ---
Author Organization [facility] Care Team Providers Care Harpsichord Maker Name Role Phone SELF, REFERRED Referring Unavailable DAVID LR Admitting Unavailable DAVID LR Attending Unavailable WAQAS PIERCE Primary Care Unavailable DAVID LR Surgeon Unavailable [place] Procedure Practitioner Unavailab JUDSON Martinez Surgeon Unavailable [place] Procedure Practitioner Unavailab Junior Peterson Unavailable Mallory Yuen Unavailable NON STAFF Primary Care Provider UnavailMD David Merritt II Attending Provider [phone] David Mcfarland II Unavailable [phone] MD Waqas Pierce Primary Care Provider MD Waqas Pierce Attending Provider WAQAS PIERCE Primary Care Physician [phone] Waqas Pierce Unavailable Rachel Vela Unavailable Rolando Castellanos Unavailable Grecia Carrera Unavailable Efrain CORTES Attending Unavailable Efrain CORTES Attending Unavailable KARI, DR WAQAS Mendez Primary Care Unavailable AMY KASPER Attending Unavailable AMY KASPER Admitting Unavailable KARI, DR WAQAS Mendez Primary Care Unavailable NILSharan Rivera, DR SHARMA Attending Unavailable NILSharan ., DR SHARMA Admitting Unavailable NILSharan Rivera, DR SHARMA Consulting Unavailable DIEGO WHITLEY Consulting Unavailable MARIA EUGENIA HUTTON Consulting Unavailable KARI, DR WAQAS Mendez Primary Care Unavailable JASMIN, DR MARSHALL Attending Unavailable JASMIN, DR MARSHALL Admitting Unavailable JASMIN, DR MARSHALL Consulting Unavailable KARI, DR WAQAS Mendez Primary Care Unavailable AMY KASPER Attending Unavailable IJEOMA, DR SHAWNEE James Consulting Unavailable HIGHLANDER, AMY [...] Unavailable HIGHLANDER, AMY D Admitting Unavailable RYANALEX Consulting Unavailable PIERCE, [...] TOMPKINS Consulting Unavailable AMY FOWLER Consulting Unavailable SHAIKH FRITZ H Attending Unavailable CATRINA, H Admitting Unavailable PIERCE, DR WAQAS Mendez Primary Care Unavailable [facility], DR ARIELA Vaz Consulting Unavailable LAMIN MOHAN Consulting Unavailable HIGHLUDAY, AMY Iverson Consulting Unavailable MELINDA HANSON Consulting Unavailable HIGHLANDER, AMY Iverson Procedure Practitioner Unava ilable JEFFERY Rivera, ELICEO Consulting Unavailable CATRINA, SHAIKH Carlos Consulting Unavailable ESTER, TUNDE Consulting Unavailable DEVIN, AMAR Consulting Unavailable AA, AA Consulting Unavailable PIERCE, DR WAQAS Mendez Primary Care Unavailable CHUCKY ., DR MALAVE Attending Unavailable CHUCKY ., DR MALAVE Consulting Unavailable CHUCKY ., DR MALAVE Admitting Unavailable ZIEBER, DR ARIELA Vaz Consulting Unavailable PIERCE, DR WAQAS Mendez Primary Care Unavailable [facility], AMY Iverson Attending Unavailable HIGHLUDAY, AMY Iverson [...] PIERCE, DR WAQAS Mendez Primary Care [facility] AM[facility] I[facility]on Admitting Unavailable MD David Mcfarland [...] Provider MD Waqas Pierce Primary Care Provider [phone] MD David Mcfarland II Attending Provider NON STAFF Primary Care Provider UnavailMD Marcin Chambers Attending Provider [phone] AINTA TAFOYA Attending Unavailable Sergio PINEDA, Angel Grande Attending Unavailable Bartolo II, David Gordillo Admitting Unavailabl e NON STAFF Primary Care Unavailable Atlantic II, David Gordillo Attending Unavailabl e Atlantic II, David Gordillo Attending Unavailabl e NON STAFF Primary Care Unavailable Atlantic II, David Gordillo Admitting Unavailabl e Bartolo II, David Gordillo Admitting Unavailabl e PierceWaqas Primary Care Unavailable Bartolo II, David Gordillo Attending Unavailabl e Atlantic II, David Gordillo Attending Unavailabl e Bartolo II, David Gordillo Admitting Unavailabl e NON STAFF Primary Care Unavailable Bartolo BAUGH, David Gordillo Admitting Unavailabl e PierceWaqas Primary Care Unavailable Atlantic II, David Gordillo Attending Unavailabl e Atlantic II, David Gordillo Attending Unavailabl e Atlantic AMAURI, David Gordillo Admitting Unavailabl e PierceWaqas Primary Care Unavailable Allergies Allergy Classification Reported Allergen(s) Allergy Type Date of Onset Reaction(s) Facility metFORMIN (1 source) metFORMIN; Translations: [METFORMIN] Drug Allergy 12-17-19 21 [facility] Repository Penicillins (antibiotic) (1 source) Penicillin Drug Allergy 03-11-20 18 [facility] Serotonin (1 source) Serotonin; Translations: [SEROTONIN] Drug Allergy 12-17-19 21 [facility] (20 sources) Penicillin G Drug Allergy 11-01-[address] [facility] (20 sources) CYMBOLTA Propensity to adverse reactions temporary blindness and couldnt feel herself breathing [facility] Other (20 sources) DULoxetine; Translations: [duloxetine] Drug Allergy 09-05-20 22 Impairment level of vision (disorder) General Surgery [facility] (20 sources) metFORMIN; Translations: [metformin] Drug Allergy 09-05-20 22 Abdominal mass (finding) General Surgery Aragon (20 sources) Penicillin; Translations: [penicillin] Drug Allergy 08-08-20 13 Eruption of skin (disorder) General Surgery [facility] (1 source) DULoxetine Drug Allergy [facility] Rep[facility] (1 source) metFORMIN Drug Allergy [facility] Rep[facility] (18 sources) Penicillins; Translations: [PENICILLINS] Drug allergy (disorder) 10-01-19 00 Rash [facility] (20 sources) Rx Essentials Antidepressant *HEMATOPOIETIC AGENTS Propensity to adverse reactions [facility] Other (3 sources) Allergies Reconciled Propensity to adverse reactions 08-17-20 21 Unknown [facility] Other (20 sources) Substance with penicillin structure and antibacterial mechanism of action (substance) Drug allergy Unknown [facility] Other (20 sources) Substance with serotonin re-uptake inhibitor mechanism of action (substance) Drug allergy 09-04-20 12 SEROTONIN HCL Dishable [facility] mediafeedia Other (3 sources) patient allergy list reviewed by nurse or physicia Propensity to adverse reactions 12-09-19 14 Comment:Done [facility] Other (16 sources) Serotonin Drug Allergy 08-28-20 23 temporary blindness, couldn't feel self breath [facility] (13 sources) Rx Essentials Antidepressant * Allergy to substance 11-01-19 Comment:[facility] Medications Current Medications Medication Drug Class(es) Dates [...] DISCHARGE DOS: 09/03/23 Aug, Active Tylenol Active [id number] 200 actuat albuterol 0.09 mg/actuat metered dose [...] oral capsule (3 sources) Non-narcotic Antitussive Start: 11-01-2023 take 1 capsule by mouth every eight [...] Ordered docusate sodium 50 mg / sennosides, longterm 8.6 mg oral tablet (12 sources) Start: [...] Once a day Active polyethylene glycol 3350 29919 mg powder for oral solution (13 sources) [...] (1999) (3 sources) take 1 capsule by [facility] once daily Vitamin D 50 MCG [...] 9:19am Start: 10-19-2019 take 1 capsule by [facility] every twelve hours Doxycycline Monohydrate 100 [...] 21, 2024 10:20am Start: 08-28-2023 Tirzepatide (M aaliyahro) 2.5 mg/0.5 mL Pen Injector Active 2.5 MG SUBCUT every week August 28, 2023 1:00am Start: 08-28-2023 Tirzepatide (M aaliyahro) 2.5 mg/0.5 mL Pen Injector Active 2.5 [...] following joint replacement surgery] Chronic Other aftercare (8 sources) Aftercare following joint replacement surgery; Translations: [Aftercare following joint replacement] Onset: 4 Chronic Other aftercare (2 sources) 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; Translations: [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] Onset: 3 Episodic Other [...] [Encounter for other preprocedural examination] Onset: 3 Urinary tract infections (6 sources) [...] XR hip RT min 2V(w/wo pelvis )*on 08-27-2024 XR hip RT min 2V(w/wo pelvis)* [facility] [address] [place] [address] XRay Report Signed Patient: Nicol Smith MR#: [id number] 9 : 1960 Acct:[id number] Age/Sex: 64 / F ADM Date: 08/27/24 Loc: [facility] Room: [facility] Attending Dr: David Mcfarland II, MD Copies to: David Mcfarland MD Ordering Provider: David Mcfarland MD Date of Service: 08/27/24 XR/XR hip RT min 2V(w/wo pelvis)*: Z47.1 - Aftercare following joint replacement surgery XR hip RT min 2V(w/wo pelvis)* 08/27/2024 1:25 PM SIGNS AND SYMPTOMS: Follow-up right total hip arthroplasty PROTOCOL: Frontal radiograph the pelvis with crosstable lateral view of the right hip COMPARISON: 11/28/2023 FINDINGS: There is total hip arthroplasty hardware without fracture or hardware complication. No dislocation. The bony pelvis is intact. Degenerative changes are noted in the sacroiliac joints and lower lumbar spine. XR/XR hip RT min 2V(w/wo pelvis)* IMPRESSION: There is total hip arthroplasty hardware without fracture or hardware complication. Impression dictated by: Magdy Crooks M.D.08/27/2024 4:17 PM Dictation Location: [place] [address] Transcribed By: [facility] 08/27/241616 Dictated By: Magdy Crooks II, MD 08/27/241616 Signed By: 08/27/241616 Normal [facility] Office Visiton 07-25-2024 Follow-up visit [id number] Nicol Smith 1960 F Date Provider Department Center 07/25/2024 3848-ANITA TAFOYA CARD [facility] Family History Problem Relation Age of Onset Diabetes Father Heart failure Father Diabetes Paternal Grandmother Diabetes Paternal Grandfather Family Status - Relation Status Age at Father Paternal Grandmother Paternal Grandfather Level of Service:40468 [place] OFFICE/OUTPATIENT ESTABLISHED MOD MDM 30 MIN Normal [facility] Albumin [Mass/volume] in Ser um or Plasmaon 07-15-2024 Albumin [Mass/Vol] 3.7 g/dL 2.9-4.4 [facility] Basophils Auto (Bld) [#/Vol] on 07-15-2024 Basophils (Bld) [#/Vol] 0.1 10 3/uL 0.0-0.1 [facility] Basophils/100 WBC Auto (Bld) on 07-15-2024 Basophils/100 WBC (Bld) 1.5 % 0.2-2.0 [facility] Eosinophils/100 WBC Auto (Bl d)on 07-15-2024 Eosinophils/100 WBC (Bld) 2.0 % 0.9-7.0 [facility] Erythrocyte distribution wid th Auto (RBC) [Ratio]on 07-15-2024 Erythrocyte distribution width (RBC) [Ratio] 22.6 % High 11.0-15.0 [facility] Estimated glomerular filtrat ion rate (GFR) non- Americanon 07-15-2024 GFR/1.73 sq M.predicted among non-blacks MDRD (S/P/Bld) [Vol rate/Area] 59 mL/min/{1.73_m2} Low >=60 mL/min/1.7 3m 2 [facility] Globulin Calc (S) [Mass/Vol] on 07-15-2024 Globulin (S) [Mass/Vol] 3.9 g/dL [facility] Hematocrit Auto (Bld) [Volum e fraction]on 07-15-2024 Hematocrit (Bld) [Volume fraction] 38.2 % 36.0-48.0 [facility] Hemoglobin [Mass/volume] in Bloodon 07-15-2024 Hemoglobin (Bld) [Mass/Vol] 11.2 g/dL Low 12.0-16.0 [facility] IgA [Mass/volume] in Serum o r Plasmaon 07-15-2024 IgA [Mass/Vol] 117 mg/dL 87-352 [facility] IgG [Mass/volume] in Serum o r Plasmaon 07-15-2024 IgG [Mass/Vol] 938 mg/dL [phone] [facility] IgM [Mass/volume] in Serum o r Plasmaon 07-15-2024 IgM [Mass/Vol] 43 mg/dL 26-217 [facility] Iron binding capacity [Mass/ volume] in Serum or Plasmaon 07-15-2024 Iron binding capacity [Mass/Vol] 457.0 ug/dL High 250.0-450. 0 [facility] Iron saturation [Mass Fracti on] in Serum or Plasmaon 07-15-2024 Iron saturation [Mass fraction] 3.7 % [facility] Laboratory - Chemistry and C hemistry - challengeon 07-15-2024 Albumin [Mass/Vol] 3.6 g/dL 3.4-5.0 [facility] ALP [Catalytic activity/Vol] 129 U/L High 46-116 [facility] ALT [Catalytic activity/Vol] 28 U/L 14-59 [facility] AST [Catalytic activity/Vol] 16 U/L 15-37 [facility] Bilirubin [Mass/Vol] 0.3 mg/dL 0.2-1.0 [facility] Calcium [Mass/Vol] 9.4 mg/dL 8.5-10.1 [facility] Chloride [Moles/Vol] 107 mmol/L 98-107 [facility] CO2 [Moles/Vol] 23.5 mmol/L 21.0-32.0 [facility] Cobalamin (Vitamin B12) [Mass/Vol] 619 pg/mL 232-1245 [facility] Comment on above: Performed at: - [address] [id number] Director: Luis Mukherjee PhD, Phone: [phone] Creatinine [Mass/Vol] 0.96 mg/dL 0.55-1.02 [facility] Ferritin [Mass/Vol] 22.0 ng/mL 8.0-252.0 [facility] GFR/1.73 sq M.predicted MDRD (S/P/Bld) [Vol rate/Area] mL/min/{1.73_m2} >=60 mL/min/1.7 3m 2 [facility] Glucose [Mass/Vol] 170 mg/dL High 74-106 [facility] Iron [Mass/Vol] 17.0 ug/dL Low 50.0-170.0 [facility] LDH [Catalytic activity/Vol] 205 U/L 81-234 [facility] Potassium [Moles/Vol] 4.0 mmol/L 3.5-5.1 [facility] Protein [Mass/Vol] 0.2 g/dL Abnormal Not Observed [facility] Protein [Mass/Vol] 7.5 g/dL 6.4-8.2 [facility] Sodium [Moles/Vol] 143 mmol/L 136-145 [facility] Urea nitrogen [Mass/Vol] 18.0 mg/dL 7.0-18.0 [facility] Urea nitrogen/Creatinine [Mass ratio] 18.8 mg/mg [facility] Laboratory - Hematology and Cell countson 07-15-2024 ESR (Bld) [Velocity] 62 mm/h High <=30 [facility] Immature granulocytes/100 WBC (Bld) 0.2 % 0.0-0.5 [facility] Leukocytes [#/volume] correc janell for nucleated erythrocytes in Blood by Automated counon 07-15-2024 WBC corrected for nucl RBC Auto (Bld) [#/Vol] 5.5 10 3/uL 4.0-11.0 [facility] Lymphocytes Auto (Bld) [#/Vo l]on 07-15-2024 Lymphocytes (Bld) [#/Vol] 1.6 10 3/uL 1.2-3.8 [facility] Lymphocytes/100 WBC Auto (Bl d)on 07-15-2024 Lymphocytes/100 WBC (Bld) 28.8 % 20.5-60.0 [facility] MCH Auto (RBC) [Entitic mass ]on 07-15-2024 MCH (RBC) [Entitic mass] 22.7 pg Low 26.7-34.0 [facility] MCHC Auto (RBC) [Mass/Vol]on 07-15-2024 MCHC (RBC) [Mass/Vol] 29.3 g/dL Low 29.9-35.2 [facility] MCV Auto (RBC) [Entitic vol] on 07-15-2024 MCV (RBC) [Entitic vol] 77.5 fL Low 81.0-99.0 [facility] Monocytes Auto (Bld) [#/Vol] on 07-15-2024 Monocytes (Bld) [#/Vol] 0.3 10 3/uL 0.3-0.8 [facility] Monocytes/100 WBC Auto (Bld) on 07-15-2024 Monocytes/100 WBC (Bld) 5.9 % 1.7-12.0 [facility] Neutrophils Auto (Bld) [#/Vo l]on 07-15-2024 Neutrophils (Bld) [#/Vol] 3.4 10 3/uL 1.4-6.5 [facility] Neutrophils/100 WBC Auto (Bl d)on 07-15-2024 Neutrophils/100 WBC (Bld) 61.6 % 43.0-75.0 [facility] No Panel Informationon 07-15 C-Reactive Protein, Quantitative <0.50 mg/dL <=0.50 [facility] Eosinophils # (Auto) 0.1 10 3/uL 0.0-0.7 [facility] Folate 18.00 ng/mL 8.60-58.90 [facility] Immature Granulocyte # (Auto) 0.01 10 3/uL 0.00-0.03 [facility] Protein Electrophoresis Note Comment . [facility] Comment on above: Protein electrophore sis scan will follow via computer,mail, or locker room attendant delivery.Performed at: [address] [id number] Director: Luis Mukherjee PhD, Phone: [phone] Platelet mean volume Auto (B ld) [Entitic vol]on 07-15-2024 Platelet mean volume (Bld) [Entitic vol] 9.5 fL 9.5-13.5 [facility] Platelets Auto (Bld) [#/Vol] on 07-15-2024 Platelets (Bld) [#/Vol] 412 10 3/uL 150-450 [facility] Protein [Mass/volume] in Ser um or Plasmaon 07-15-2024 Protein [Mass/Vol] 7.0 g/dL 6.0-8.5 [facility] RBC Auto (Bld) [#/Vol]on RBC (Bld) [#/Vol] 4.93 10 6/uL 4.20-5.40 [facility] Comment on above: ANISOCYTOSIS 1+ Reticulocytes/100 RBC Auto ( Bld)on 07-15-2024 Reticulocytes/100 RBC (Bld) 2.69 % 0.60-3.10 [facility] Serum globulin measurement ( mass/volume)on 07-15-2024 Globulin (S) [Mass/Vol] 3.3 g/dL 2.2-3.9 [facility] Serum or plasma albumin/glob ulin mass ratioon 07-15-2024 Albumin/Globulin [Mass ratio] 0.9 {ratio} [facility] Albumin/Globulin [Mass ratio] 1.2 {ratio} 0.7-1.7 [facility] Serum or plasma alpha 1 glob ulin measurement by electrophoresis (mass/volume)on 07-15-2024 Alpha 1 globulin Elph [Mass/Vol] 0.3 g/dL 0.0-0.4 [facility] Serum or plasma alpha 2 glob ulin measurement by electrophoresis (mass/volume)on 07-15-2024 Alpha 2 globulin Elph [Mass/Vol] 0.9 g/dL 0.4-1.0 [facility] Serum or plasma anion gap de terminationon 07-15-2024 Anion gap [Moles/Vol] 16.5 mmol/L [facility] Serum or plasma beta globuli n measurement by electrophoresis (mass/volume)on 07-15-2024 Beta globulin Elph [Mass/Vol] 1.1 g/dL 0.7-1.3 [facility] Serum or plasma gamma globul in measurement by electrophoresis (mass/volume)on 07-15-2024 Gamma globulin Elph [Mass/Vol] 0.9 g/dL 0.4-1.8 [facility] Serum or plasma immunoelectr ophoresis interpretationon 07-15-2024 Interpretation IEP [Interp] Comment Abnormal . 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 Activated partial thrombopla stin time (aPTT) in platelet poor plasma by coagulation aon 06-17-2024 aPTT Coag (PPP) [Time] 26.5 s 22.3-36.2 [facility] Basophils Auto (Bld) [#/Vol] on 06-17-2024 Basophils (Bld) [#/Vol] 0.1 10 3/uL 0.0-0.1 [facility] Basophils/100 WBC Auto (Bld) on 06-17-2024 Basophils/100 WBC (Bld) 1.4 % 0.2-2.0 [facility] Cholesterol in LDL Calc [Mas s/Vol]on 06-17-2024 Cholesterol in LDL [Mass/Vol] 72.0 mg/dL [facility] Comment on above: <100 mg/dl [id number] 0-129 mg/dl NEAR OR ABOVE [id number] mg/dl BORDERLINE [id number] mg/dl HIGH>190 mg/dl VERY HIGH Cholesterol in VLDL Calc [Ma ss/Vol]on 06-17-2024 Cholesterol in VLDL [Mass/Vol] 33.4 mg/dL [facility] Eosinophils/100 WBC Auto (Bl d)on 06-17-2024 Eosinophils/100 WBC (Bld) 1.8 % 0.9-7.0 [facility] Erythrocyte distribution wid th Auto (RBC) [Ratio]on 06-17-2024 Erythrocyte distribution width (RBC) [Ratio] 17.7 % High 11.0-15.0 [facility] Hematocrit Auto (Bld) [Volum e fraction]on 06-17-2024 Hematocrit (Bld) [Volume fraction] 33.7 % Low 36.0-48.0 [facility] Hemoglobin [Mass/volume] in Bloodon 06-17-2024 Hemoglobin (Bld) [Mass/Vol] 9.8 g/dL Low 12.0-16.0 [facility] INR in Platelet poor plasma by Coagulation assayon 06-17-2024 INR Coag (PPP) [Relative time] 0.95 {INR} [facility] Comment on above: DESIRED INR:2.0-3.0 CONDITIONS NOT LISTED BELOW2.5-3.5 FOR PROSTHETIC HEART VALVE REPLACEMENT2.5-3.5 RECURRENT THROMBOSIS Laboratory - Chemistry and C hemistry - challengeon 06-17-2024 Cholesterol [Mass/Vol] 171 mg/dL <=200 [facility] Cholesterol in HDL [Mass/Vol] 66 mg/dL High 40-60 [facility] Comment on above: > or =60 mg/dl - LOW CARDIOVASCULAR RISK<40 mg/dl - HIGH CARDIOVASCULAR RISK Free T4 [Mass/Vol] 0.78 ng/dL 0.76-1.46 [facility] Triglyceride [Mass/Vol] 167 mg/dL High <=150 [facility] TSH Qn 6.061 m[IU]/L High 0.358-3.74 0 [facility] Laboratory - Hematology and Cell countson 06-17-2024 Immature granulocytes/100 WBC (Bld) 0.0 % 0.0-0.5 [facility] Leukocytes [#/volume] correc janell for nucleated erythrocytes in Blood by Automated counon 06-17-2024 WBC corrected for nucl RBC Auto (Bld) [#/Vol] 5.0 10 3/uL 4.0-11.0 [facility] Lymphocytes Auto (Bld) [#/Vo l]on 06-17-2024 Lymphocytes (Bld) [#/Vol] 1.9 10 3/uL 1.2-3.8 [facility] Lymphocytes/100 WBC Auto (Bl d)on 06-17-2024 Lymphocytes/100 WBC (Bld) 37.1 % 20.5-60.0 [facility] MCH Auto (RBC) [Entitic mass ]on 06-17-2024 MCH (RBC) [Entitic mass] 21.5 pg Low 26.7-34.0 [facility] MCHC Auto (RBC) [Mass/Vol]on 06-17-2024 MCHC (RBC) [Mass/Vol] 29.1 g/dL Low 29.9-35.2 [facility] MCV Auto (RBC) [Entitic vol] on 06-17-2024 MCV (RBC) [Entitic vol] 74.1 fL Low 81.0-99.0 [facility] Monocytes Auto (Bld) [#/Vol] on 06-17-2024 Monocytes (Bld) [#/Vol] 0.4 10 3/uL 0.3-0.8 [facility] Monocytes/100 WBC Auto (Bld) on 06-17-2024 Monocytes/100 WBC (Bld) 8.0 % 1.7-12.0 [facility] Neutrophils Auto (Bld) [#/Vo l]on 06-17-2024 Neutrophils (Bld) [#/Vol] 2.6 10 3/uL 1.4-6.5 [facility] Neutrophils/100 WBC Auto (Bl d)on 06-17-2024 Neutrophils/100 WBC (Bld) 51.7 % 43.0-75.0 [facility] No Panel Informationon 06-17 Eosinophils # (Auto) 0.1 10 3/uL 0.0-0.7 [facility] Immature Granulocyte # (Auto) 0.00 10 3/uL 0.00-0.03 [facility] Platelet mean volume Auto (B ld) [Entitic vol]on 06-17-2024 Platelet mean volume (Bld) [Entitic vol] 9.2 fL Low 9.5-13.5 [facility] Platelets Auto (Bld) [#/Vol] on 06-17-2024 Platelets (Bld) [#/Vol] 400 10 3/uL 150-450 [facility] Prothrombin time (PT)on 06-01 PT Coag (PPP) [Time] 10.1 s 9.0-11.6 [facility] RBC Auto (Bld) [#/Vol]on RBC (Bld) [#/Vol] 4.55 10 6/uL 4.20-5.40 [facility] Serum or plasma total choles terol/high density lipoprotein (HDL) cholesterol mass bridget 06-17-2024 Cholesterol.total/Chol esterol in HDL [Mass ratio] 2.6 {ratio} [facility] Comment on above: 3.3 - 4.4 LOW RISK4. 4 - 7.1 AVERAGE RISK7.1 - 11.0 MODERATE RISK>11.0 HIGH RISK Estimated glomerular filtrat ion rate (GFR) non- Americanon 01-11-2024 GFR/1.73 sq M.predicted among non-blacks MDRD (S/P/Bld) [Vol rate/Area] mL/min/{1.73_m2} >=60 [facility] Laboratory - Chemistry and C hemistry - challengeon 01-11-2024 Creatinine [Mass/Vol] 0.85 mg/dL 0.55-1.02 [facility] GFR/1.73 sq M.predicted MDRD (S/P/Bld) [Vol rate/Area] mL/min/{1.73_m2} >=60 [facility] XR hip RT min 2V(w/wo pelvis )*on 11-28-2023 XR hip RT min 2V(w/wo pelvis)* [facility] [place] [address] XRay Report Signed Patient: Nicol Smith MR#: [id number] 9 : 1960 Acct:[id number] Age/Sex: 63 / F ADM Date: 11/28/23 Loc: [facility] Room: [facility] Attending Dr: David Mcfarland II, MD Copies [...] Matamoros Jr., D.OMiguel11/28/2023 1:06 PM Dictation Location: [id number] Transcribed By: PWS 11/28/23 1306 Dictated By: Stalin Matamoros Jr DO 11/28/23 1305 Signed By: 11/28/23 1306 Normal [facility] XR hip RT min 2V(w/wo pelvis )*on 10-17-2023 XR hip RT min 2V(w/wo pelvis)* [facility] [place] [address] XRay Report Signed Patient: Nicol Smith MR#: [id number] 9 : 1960 Acct:[id number] Age/Sex: 63 / F ADM Date: 10/17/23 Loc: [facility] Room: Type: [facility] Attending Dr: David Mcfarland II, MD Copies [...] 1538 Signed By: 10/17/23 153 Normal [facility] XR hip RT min 2V(w/wo pelvis)* [facility] Other XR hip RT min 2V(w/wo pelvis)* [facility] [place] [facility] Other XR hip RT min 2V(w/wo pelvis)* [address] [facility] Other XR hip RT min 2V(w/wo pelvis)* [place] [address] [facility] Other XR hip RT min 2V(w/wo pelvis)* XRay Report [facility] Other XR hip RT min 2V(w/wo pelvis)* Signed [facility] Other XR hip RT min 2V(w/wo pelvis)* Patient: Nicol Smith MR#: [id number] [facility] Other XR hip RT min 2V(w/wo pelvis)* 9 [facility] Other XR hip RT min 2V(w/wo pelvis)* : 1960 Acct:[id number] [facility] Other XR hip RT min 2V(w/wo pelvis)* Age/Sex: 63 / F ADM Date: 10/17/23 [facility] Other XR hip RT min 2V(w/wo pelvis)* Loc: [facility] Room: Type[facility] Other XR hip RT min 2V(w/wo pelvis)* Attending Dr: David Mcfarland II, MD [facility] Other XR hip RT min 2V(w/wo pelvis)* Copies to: David Mcfarland MD [facility] Other XR hip RT min 2V(w/wo pelvis)* Ordering Provider: David Mcfarland MD [facility] Other XR hip RT min 2V(w/wo pelvis)* Date of Service: 10/17/23 [facility] Other XR hip RT min 2V(w/wo pelvis)* XR/XR hip RT min 2V(w/wo pelvis)*: Aftercare following joint replacement [facility] Other XR hip RT min 2V(w/wo pelvis)* surgery;Presence of [facility] Other XR hip RT min 2V(w/wo pelvis)* 2 views right hip with single view pelvis plain film RENTISH Other XR hip RT min 2V(w/wo pelvis)* COMPARISON: 09/03/2023 [employer] Other XR hip RT min 2V(w/wo pelvis)* HISTORY: Status post right total hip arthroplasty [facility] Other XR hip RT min 2V(w/wo pelvis)* ACUTE FINDINGS: None [facility] Other XR hip RT min 2V(w/wo pelvis)* DEGENERATIVE CHANGE: Unremarkable [facility] Other XR hip RT min 2V(w/wo pelvis)* SOFT TISSUE FINDINGS: Unremarkable [facility] Other XR hip RT min 2V(w/wo pelvis)* JOINT EFFUSION: None [facility]ISH Other XR hip RT min 2V(w/wo pelvis)* POSTOP CHANGES: Stable bilateral hip arthroplasties. [facility] Other XR hip RT min 2V(w/wo pelvis)* BONY MINERALIZATION: Adequate [facility] Other XR hip RT min 2V(w/wo pelvis)* XR/XR hip RT min 2V(w/wo pelvis)* RENTISH Other XR hip RT min 2V(w/wo pelvis)* IMPRESSION: Stable right hip arthroplasty. [facility]ISH Other XR hip RT min 2V(w/wo pelvis)* Impression dictated by: Kane Katz M.D.10/17/2023 3:39 PM [facility] Other XR hip RT min 2V(w/wo pelvis)* Dictation Location: [place] [address] [facility]ISH Other XR hip RT min 2V(w/wo pelvis)* Transcribed By: PWS 10/17/23 [facility] RENTISH Other XR hip RT min 2V(w/wo pelvis)* Dictated By: Kane Katz DO 10/17/23 [facility] R[facility]ISH Other XR hip RT min 2V(w/wo pelvis)* Signed By: RENTISH Other XR hip RT min 2V(w/wo pelvis)* 10/17/23 [facility] Other ABO/Rh Retypeon 09-03-2023 ABO/RH Recheck Result Positive Normal [facility] Comment on above: Result Comment: PERF ORMED BY: [address] [place] [address] PATHOLOGIST APPRAISER LAND SUAD Killian 09-03-2023 L ----- Specimen: [id number] Received: 09/03/23 Status: GRACIELA Dominguez Num: [id number] Spec Type: Surgical Subm Dr: David Mcfarland MD Tissues: A Femoral Head - Other than Fracture (RT HIP) Procedures: HE/2, Gross/Micro L3, Decalcification Age/ Patient Sex Location Account Attending Physician Nicol Smith 63/F [place] [id number] David Mcfarland MD SPEC NUM: [id number] RECD: 09/03/23 STATUS: GRACIELA ESTRADAMaria Isabel NUM: [id number] SABRINA: 09/03/[address] [facility] DR: David Mcfarland MD ENTERED: 09/03/[address] [facility] [address]: BEATRICE TYPE: Surgical DEPT: S ORDERED: [...] is taken. Gross examination only. CPT Codes 35477 Specimen: [id number] Received: 09/03/23 Status: GRACIELA Dominguez Num: [id number] Spec Type: Surgical Subm Dr: David Mcfarland MD Tissues: A Femoral Head - Other than Fracture (RT HIP) Procedures: HE/2, Gross/Micro L3, Decalcification Patient: Nicol Smith [id number] (Continued) Specimen: [id number] Received: 09/03/23 (Continued) Signed (signature on file) Dez Núñez MD 09/07/23 1345 Specimen: [id number] Received: 09/03/23 Status: GRACIELA Dominguez Num: [id number] Spec Type: Surgical Subm Dr: David Mcfarland MD Tissues: A Femoral Head - Other than Fracture (RT HIP) Procedures: HE/2, Gross/Micro L3, Decalcification Patient: RomeoNicol Gonsales [id number] (Continued) Specimen: [id number] Received: 09/03/23 (Continued) Maikol Photo Specimen: [id number] Received: 09/03/23 Status: GRACIELA Dominguez Num: [id number] Spec Type: Surgical Subm Dr: David Mcfarland MD Tissues: A Femoral Head - Other than Fracture (RT HIP) Procedures: HE/2, Gross/Micro L3, Decalcification Patient: Nicol Smith [id number] (Continued) Signed (signature on file) Dez Núñez MD 09/07/23 1345 Normal [facility] XR low pelvis w/RT x-table h ipon 09-03-2023 XR low pelvis w/RT x-table hip [facility] [place] [address] XRay Report Signed Patient: Nicol Smith MR#: [id number] 9 : 1960 Acct:[id number] Age/Sex: 63 / F ADM Date: 09/03/23 Loc: [place] Room: Type: [facility] Attending Dr: David Mcfarland II, MD Copies to: David Mcfarland MD Ordering Provider: David Mcfarland MD Date of Service: 09/03/23 XR/XR low pelvis w/RT x-table hip: Total Hip, due in PACU ([id number]) XR/XR hip RT 1V: ANTERIOR HIP IN [...] Anna Hull M.D.09/03/2023 11:53 AM Dictation Location: [place] [address] Transcribed By: [facility] 09/03/23 1153 Dictated By: Anna Hull MD 09/03/23 1150 Signed By: 09/03/23 1153 Normal [facility] Automated erythrocytes count in urine sediment (number/area)Ordered By: David Mcfarland on 08-28-2023 RBC Auto (Urine sed) [#/Area] 1-2 [HPF] 0-4 [facility] Automated leukocytes count i n urine sediment (number/area)Ordered By: David Mcfarland on 08-28-2023 WBC Auto (Urine sed) [#/Area] 10-19 [HPF] 0-4 [facility] Basophils Auto (Bld) [#/Vol] Ordered By: David Mcfarland on 08-28-2023 Basophils (Bld) [#/Vol] 0.1 10*3/uL 0.0-0.2 [facility] Basophils/100 WBC Auto (Bld) Ordered By: David Mcfarland on 08-28-2023 Basophils/100 WBC (Bld) 1.1 % . [facility] Bilirubin Test strip Ql (U)O rdered By: David Mcfarland on 08-28-2023 Bilirubin Ql (U) Negative Negative [facility] Calcium [Mass/volume] in Ser um or PlasmaOrdered By: David Mcfarland on 08-28-2023 Calcium [Mass/Vol] 9.7 mg/dL 8.6-10.3 [facility] Carbon dioxide, total [Moles /volume] in Serum or PlasmaOrdered By: David Mcfarland on 08-28-2023 CO2 [Moles/Vol] 26.1 mmol/L 21.0-31.0 [facility] Chloride [Moles/volume] in S adela or PlasmaOrdered By: David Mcfarland on 08-28-2023 Chloride [Moles/Vol] 107 mmol/L 98-107 [facility] Color Auto (U)Ordered By: Arleth Mcfarland on 08-28-2023 Color (U) Yellow Yellow [facility] Creatinine [Mass/volume] in Serum or PlasmaOrdered By: David Mcfarland on 08-28-2023 Creatinine [Mass/Vol] 0.96 mg/dL 0.60-1.20 [facility] Eosinophils Auto (Bld) [#/Vo l]Ordered By: David Mcfarland on 08-28-2023 Eosinophils (Bld) [#/Vol] 0.1 10*3/uL 0.0-0.45 [facility] Eosinophils/100 WBC Auto (Bl d)Ordered By: David Mcfarland on 08-28-2023 Eosinophils/100 WBC (Bld) 1.0 % . [facility] Erythrocyte distribution wid th Auto (RBC) [Ratio]Ordered By: David Mcfarland on 08-28-2023 Erythrocyte distribution width (RBC) [Ratio] 17.5 % 11.9-15.3 [facility] Fructosamine [Moles/volume] in Serum or PlasmaOrdered By: David Mcfarland on 08-28-2023 Fructosamine [Moles/Vol] 205 umol/L 0-285 [facility] Comment on above: Published reference interval for apparently healthysubjects between age 20 and 60 is 205 - 285 umol/L and in apoorly controlled diabetic population is 228 - 563 umol/Lwith a mean of 396 umol/L.Performed at: - [facility] [id number] Director: Luis Mukherjee PhD, Phone: [phone] Glucose [Mass/volume] in Ser um or PlasmaOrdered By: David Mcfarland on 08-28-2023 Glucose [Mass/Vol] 98 mg/dL 70-100 [facility] Comment on above: ADA recommended refe rence rangeRandom Glucose Reference Range is dependent on time and content of last meal. Glucose of more than 200 mg/dL in a nonstressed, ambulatory subject supports the diagnosis of Diabetes Mellitus. Hematocrit Auto (Bld) [Volum e fraction]Ordered By: aDvid Mcfarland on 08-28-2023 Hematocrit (Bld) [Volume fraction] 36.9 % 34.0-46.4 [facility] Hemoglobin [Mass/volume] in BloodOrdered By: David Mcfarland on 08-28-2023 Hemoglobin (Bld) [Mass/Vol] 11.9 g/dL 11.8-15.4 [facility] Ketones Auto test strip (U) [Mass/Vol]Ordered By: David Mcfarland on 08-28-2023 Ketones (U) [Mass/Vol] Negative Negative [facility] - UrinalysisOrder ed By: David Mcfarland on 08-28-2023 Hyaline casts LM Ql (Urine sed) 0-8 [LPF] 0-8 [facility] Leukocytes [#/volume] correc janell for nucleated erythrocytes in Blood by Automated counOrdered By: David Mcfarland on 08-28-2023 WBC corrected for nucl RBC Auto (Bld) [#/Vol] 6.4 10*3/uL 3.8-11.6 [facility] Lymphocytes Auto (Bld) [#/Vo l]Ordered By: David Mcfarland on 08-28-2023 Lymphocytes (Bld) [#/Vol] 1.6 10*3/uL 1.00-4.8 [facility] Lymphocytes/100 WBC Auto (Bl d)Ordered By: David Mcfarland on 08-28-2023 Lymphocytes/100 WBC (Bld) 25.3 % . [facility] MCH Auto (RBC) [Entitic mass ]Ordered By: David Mcfarland on 08-28-2023 MCH (RBC) [Entitic mass] 25.0 pg 24.7-34.3 [facility] MCHC Auto (RBC) [Mass/Vol]Or dered By: David Mcfarland on 08-28-2023 MCHC (RBC) [Mass/Vol] 32.1 g/dL 32.0-35.0 [facility] MCV Auto (RBC) [Entitic vol] Ordered By: David Mcfarland on 08-28-2023 MCV (RBC) [Entitic vol] 78.0 fL 80-100 [facility] Monocytes Auto (Bld) [#/Vol] Ordered By: David Mcfarland on 08-28-2023 Monocytes (Bld) [#/Vol] 0.5 10*3/uL 0.0-0.8 [facility] Monocytes/100 WBC Auto (Bld) Ordered By: David Mcfarland on 08-28-2023 Monocytes/100 WBC (Bld) 7.6 % . [facility] Neutrophils Auto (Bld) [#/Vo l]Ordered By: David Mcfarland on 08-28-2023 Neutrophils (Bld) [#/Vol] 4.2 10*3/uL 1.8-7.7 [facility] Neutrophils/100 WBC Auto (Bl d)Ordered By: David Mcfarland on 08-28-2023 Neutrophils/100 WBC (Bld) 65.0 % . [facility] Nitrite Test strip Ql (U)Ord ered By: David Mcfarland on 08-28-2023 Nitrite Ql (U) Negative Negative [facility] No Panel InformationOrdered By: David Mcfarland on 08-28-2023 Estimated GFR (CKD-EPI) > 60.0 mL/Min [facility] Creatinine Clearance (Chem N/A [facility] Nucleated erythrocytes [Pres ence] in Blood by Automated countOrdered By: Davdi Mcfarland on 08-28-2023 Nucleated RBC Auto Ql (Bld) 0.1 /100{WBC} 0-0.5 [facility] Platelet mean volume Auto (B ld) [Entitic vol]Ordered By: David Mcfarland on 08-28-2023 Platelet mean volume (Bld) [Entitic vol] 8.0 fL 6.3-10.7 [facility] Platelets Auto (Bld) [#/Vol] Ordered By: David Mcfarland on 08-28-2023 Platelets (Bld) [#/Vol] 387 10*3/uL 150-450 [facility] Potassium [Moles/volume] in Serum or PlasmaOrdered By: David Mcfarland on 08-28-2023 Potassium [Moles/Vol] 4.2 mmol/L 3.5-5.1 [facility] Protein Auto test strip (U) [Mass/Vol]Ordered By: David Mcfarland on 08-28-2023 Protein (U) [Mass/Vol] Negative Negative [facility] RBC Auto (Bld) [#/Vol]Ordere d By: David Mcfarland on 08-28-2023 RBC (Bld) [#/Vol] 4.74 10*6/uL 3.60-5.00 [facility] Serum or plasma anion gap de terminationOrdered By: David Mcfarland on 08-28-2023 Anion gap [Moles/Vol] 11.1 mmol/L 6.0-15.0 [facility] Sodium [Moles/volume] in Ser um or PlasmaOrdered By: David Mcfarland on 08-28-2023 Sodium [Moles/Vol] 140 mmol/L 136-145 [facility] Specific gravity Auto test s trip (U) [Rel density]Ordered By: David Mcfarland on 08-28-2023 Specific gravity (U) [Rel density] 1.020 1.001-1.03 0 [facility] Squamous epithelial cells de tection in urine sediment by light microscopyOrdered By: David Mcfarland on 08-28-2023 Epithelial cells.squamous LM Ql (Urine sed) 3-4 [HPF] 0-2 [facility] Urea nitrogen [Mass/volume] in Serum or PlasmaOrdered By: David Mcfarland on 08-28-2023 Urea nitrogen [Mass/Vol] 17 mg/dL 7-25 [facility] Urine bacteria detection by automated methodOrdered By: David Mcfarland on 08-28-2023 Bacteria Auto Ql (U) None seen None Seen [facility] Urine clarity by refractomet ry automatedOrdered By: David Mcfarland on 08-28-2023 Clarity Refractometry automated (U) Clear Clear [facility] Urine culture routineOrdered By: David Mcfarland on 08-28-2023 Bacteria identified Cx Nom (U) 2 Days [facility] Urine glucose measurement by automated test strip (mass/volume)Ordered By: David Mcfarland on 08-28-2023 Glucose Auto test strip (U) [Mass/Vol] Normal mg/dL Normal [facility] Urine hemoglobin detection b y automated test stripOrdered By: David Mcfarland on 08-28-2023 Hemoglobin Auto test strip Ql (U) Negative Negative [facility] Urine leukocyte esterase det ection by automated test stripOrdered By: David Mcfarland on 08-28-2023 Leukocyte esterase Auto test strip Ql (U) 3+ Negative [facility] Urobilinogen Auto test strip (U) [Mass/Vol]Ordered By: David Mcfarland on 08-28-2023 Urobilinogen (U) [Mass/Vol] Normal mg/dL Normal [facility] WBC Auto (Bld) [#/Vol]Ordere d By: David Mcfarland on 08-28-2023 WBC (Bld) [#/Vol] 6.4 10*3/uL 3.8-11.6 [facility] pH Auto test strip (U)Ordere d By: David Mcfarland on 08-28-2023 pH (U) 5.5 [pH] 5.0-9.0 [facility] TSHon 01-19-2023 TSH 5.502 uIU/mL Critically high 0.358-3.74 0 [facility] Comment on above: Performed By: #### T ####[facility] [address] [place], [place] [address]IaMiguel Darrick Cao GTT 2 HRon 12-12-2022 Glucose [Mass/Vol] 117 mg/dL Critically high 74-106 [facility] Comment on above: Performed By: #### G TT2 ####[facility] [address] [place], [place] [address]Em. Darrick Cao Glucose [Mass/Vol] 227 mg/dL Normal [facility] Comment on above: Performed By: #### G TT2 ####[facility] [address] [place], [place] [address]Us. Darrick Cao Glucose [Mass/Vol] 121 mg/dL Normal [facility] Comment on above: Performed By: #### G TT2 ####[facility] [address] [place], [place] [address]Ly. Adryyakov Cao TSHon 12-12-2022 TSH 6.852 uIU/mL Critically high 0.358-3.74 0 [facility] Comment on above: Performed By: #### P OCGLUC #### [facility] [address] [place], [place] [address] Dr. Darrick Cao Outside Colonoscopyon 2022 Outside Colonoscopy [id number]#1.00CD:12 7 Normal [facility] Reminderson 12-07-2022 Reminders - From: Yu Waters LPN To: N - Clinical; Sent: 12/07/2022 08:47:38 EST Show up: 11/08/2032 07:00:00 EST Subject: colonoscopy recall Due Date/Time: 12/06/2032 07:00:00 EST Reminder/Recall Patient is due for screening colonoscopy 12/06/2032. Normal [facility] Consent for Procedure/Surger yon 11-09-2022 Consent for Procedure/Surgery [id number]#1.00CD:12 7 Normal [facility] Consent for Procedure/Surgery [id number]#1.00CD:12 7 Normal [facility] Facesheeton 11-09-2022 Facesheet [id number]#1.00CD:12 7 Normal [facility] Ambulatory Visit Summaryon 0 11-08-2022 Ambulatory Visit [...] Screening for malignant neoplasm of colon Normal [facility] MG MAMM SCREEN 3D BONNIE CADon 11-03-2022 MG MAMM SCREEN 3D BONNIE CAD Patient: NICOL SMITH Exam Date: 11/03/2022 : 1960 Gender:F Ordering : DR FRIEDA LOCKE . Admission #: [id number] Family : Order #: [id number] CLICK HERE TO VIEW EXAM RADIOLOGY REPORT [...] uterine cancer at age 52. LOCATION: [facility] BREAST COMPOSITION: Scattered areas fibroglandular density. [...] MD on 11/03/2022 at 11:04 Normal [facility] XR DEXA BONE DENSITYon 11-03 XR [...] by: ARIELA SCHWAB Date: 2022-11-03 11:11 Normal [facility] Comprehensive Metabolic Pane yuli 10-30-2022 Urea nitrogen [Mass/Vol] 20 mg/dL Dishable [facility] [employer] Other Comprehensive Metabolic Panel [facility] [employer] Other Comprehensive Metabolic Panel >60 [facility] Other Comprehensive Metabolic Panel 4.2 Dishable [facility] [employer] Other Albumin [Mass/Vol] 3.7 g/dL Normal 3.4-5.0 Dishable [facility] [employer] Other Comment on above: Performed By: #### T SH, CMP, LIPID ####[facility] [address] [place] [address]Dr. Darrick Cao Albumin/Globulin [Mass ratio] 0.9 {ratio} Normal Dishable [facility] [employer] Other Comment on above: Performed By: #### T SH, CMP, LIPID ####[facility] [address] [place] [id number]. Darrick Cao ALP [Catalytic activity/Vol] 112 U/L Normal 46-116 [facility] [employer] Other Comment on above: Performed By: #### T SH, CMP, LIPID ####[facility] [address] [place] [address]Dr. Darrick Cao ALT [Catalytic activity/Vol] 34 U/L Normal 14-59 [facility] [employer] Other Comment on above: Performed By: #### T SH, CMP, LIPID ####[facility] [address] [place], [place] [address]Fr. Darrick Cao AST [Catalytic activity/Vol] 17 U/L Normal 15-37 [facility] [employer] Other Comment on above: Performed By: #### T SH, CMP, LIPID ####[facility] [address] [place], [place] [address]Ok. Darrick Cao Bilirubin [Mass/Vol] 0.4 mg/dL Normal 0.2-1.0 [facility] Other Comment on above: Performed By: #### T SH, CMP, LIPID ####[facility] [address] [place] [address]Dr. Darrick Cao Calcium [Mass/Vol] 9.2 mg/dL Normal 8.5-10.1 [facility] [employer] Other Comment on above: Performed By: #### T SH, CMP, LIPID ####[facility] [address] [place], [place] [address]Dr. Darrick Cao Chloride [Moles/Vol] 105 mmol/L Normal 98-107 [facility] Other Comment on above: Performed By: #### T SH, CMP, LIPID ####[facility] [address] [place] [id number]. Darrick Cao CO2 [Moles/Vol] 27.0 mmol/L Normal 21.0-32.0 [facility] kiwi666 Other Comment on above: Performed By: #### T SH, CMP, LIPID ####[facility] [address] [place] [id number]. Darrick Cao Creatinine [Mass/Vol] 0.86 mg/dL Normal 0.55-1.02 [facility] Other Comment on above: Performed By: #### T SH, CMP, LIPID ####[facility] [address] [place], [place] [address]Dr. Darrick Cao Glucose [Mass/Vol] 114 mg/dL Critically high 74-106 [facility] [employer] Other Comment on above: Performed By: #### T SH, CMP, LIPID ####[facility] [address] [place] [address]Dr. Darrick Cao Potassium [Moles/Vol] 3.9 mmol/L Normal 3.5-5.1 [facility] [employer] Other Comment on above: Performed By: #### T SH, CMP, LIPID ####[facility] [address] [place] [address]Dr. Darrick Cao Protein [Mass/Vol] 7.9 g/dL Normal 6.4-8.2 [facility] [employer] Other Comment on above: Performed By: #### T SH, CMP, LIPID ####[facility] [address] [place], [place] [address]Dr. Darrick Cao Sodium [Moles/Vol] 143 mmol/L Normal 136-145 [facility] [employer] Other Comment on above: Performed By: #### T SH, CMP, LIPID ####[facility] [address] [place] [address]Dr. Darrick Cao FREE T4on 10-30-2022 Free T4 [Mass/Vol] 0.77 ng/dL Normal 0.76-1.46 [facility] Comment on above: Performed By: #### F T4 ####[facility] [address] [place] [id number]. Darrick Cao LIPID PROFILEon 10-30-2022 CHOL-HDL RATIO NORM SEE BELOW Normal [facility] Comment on above: Result Comment: 3.3 - 4.4 LOW RISK 4.4 - 7.1 AVERAGE RISK 7.1 - 11.0 MODERATE RISK >11.0 HIGH RISK Performed By: #### T SH, CMP, LIPID ####[facility] [address] [place] [address]Dr. Darrick Cao Cholesterol in LDL [Mass/Vol] 84.6 mg/dL Normal [facility] Comment on above: Performed By: #### T SH, CMP, LIPID ####[facility] [address] [place], [place] [address]Lm. Darrick Cao HDL NORMAL > or = 60 mg/dl - LO W CARDIOVASCULAR RISK <40 mg/dl - HIGH CARDIOVASCULAR RISK Normal [facility] Comment on above: Performed By: #### T SH, CMP, LIPID ####[facility] [address] [place], [place] [address]Kq. Darrick Cao LDL CALC NORMAL SEE BELOW Normal [facility] Comment on above: Result Comment: <100 mg/dl OPTIMAL 100 - 129 mg/dl NEAR OR ABOVE OPTIMAL 130 - 159 mg/dl BORDERLINE HIGH 160 - 189 mg/dl HIGH >190 mg/dl VERY HIGH Performed By: #### T JASON, CMP, LIPID ####[facility] [address] [place], [place] [address]Id. Darrick Cao Triglyceride [Mass/Vol] 222 mg/dL Critically high <=150 [facility] Comment on above: Performed By: #### T JASON, CMP, LIPID ####[facility] [address] [place], [place] [address]Lr. Darrick Cao VLDL CALC 44.4 mg/dL Normal [facility] Comment on above: Performed By: #### T JASON, CMP, LIPID ####[facility] [address] [place], [place] [address]Vr. Darrick Cao Lipid Panelon 10-30-2022 Cholesterol in LDL Elph Qn 84.6 [facility] Other Lipid Panel 222 [facility] Other Lipid Panel 44.4 [facility] Other Cholesterol [Mass/Vol] 185 mg/dL Normal <=[address] [facility] Other Comment on above: Performed By: #### T SH, CMP, LIPID ####[facility] [address] [place], [place] [address]Cv. Darrick Cao Cholesterol in HDL [Mass/Vol] 56 mg/dL Normal 40-60 [facility] Other Comment on above: Performed By: #### T SH, CMP, LIPID ####[facility] [address] [place] [id number] Cao Cholesterol.total/Chol esterol in HDL [Mass ratio] 3.3 {ratio} Normal [facility] Other Comment on above: Performed By: #### T SH, CMP, LIPID ####[facility] [address] [place] [address]DrMiguel Cao PROF 14(COMP METB)on 023 Anion gap [Moles/Vol] 14.9 mmol/L Normal [facility] Comment on above: Performed By: #### T JASON, CMP, LIPID ####[facility] [address] [place] [address]DrMiguel Cao EGFR-AF DOMINICAN >60 Normal >=60 [facility] Comment on above: Performed By: #### T JASON, CMP, LIPID ####[facility] [address] [place] [address]DrMiguel Cao EGFR-NON AF DOMINICAN >60 Normal >=60 [facility] Comment on above: Performed By: #### T JASON, CMP, LIPID ####[facility] [address] [place] [address]DrMiguel Cao Globulin (S) [Mass/Vol] 4.2 g/dL Normal [facility] Comment on above: Performed By: #### T JASON, CMP, LIPID ####[facility] [address] [place] [id number] Cao Urea nitrogen [Mass/Vol] 20.0 mg/dL Critically high 7.0-18.0 [facility] Comment on above: Performed By: #### T SH, CMP, LIPID ####[facility] [address] [place] [address]DrMiguel Cao Urea nitrogen/Creatinine [Mass ratio] 23.3 mg/mg Normal [facility] Comment on above: Performed By: #### T SH, CMP, LIPID ####[facility] [address] [place] [id number] Cao TSHon 10-30-2022 TSH 6.415 uIU/mL Critically high 0.358-3.74 0 [facility] Comment on above: Performed By: #### T SH, CMP, LIPID ####[facility] [address] [place], [place] [address]UdMiguel Cao Thyroid Stim Hormone w/Rflxo n 10-30-2022 Thyroid Stim Hormone w/Rflx 6.415 [facility] Other VITAMIN B12on 10-30-2022 Cobalamin (Vitamin B12) [Mass/Vol] 664.0 pg/mL Normal 193.0-986. 0 [facility] Comment on above: Performed By: #### V ITB12 #### [facility] [address] [place], [place] [address] Dr. Darrick Cao Vitamin B12on 10-30-2022 Cobalamin (Vitamin B12) [Mass/Vol] 664 pg/mL [facility] Other Automated erythrocytes count in urine sediment (number/area)Ordered By: Waqas Pierce on 10-23-2022 RBC Auto (Urine sed) [#/Area] 0-1 [HPF] 0-4 [facility] Automated leukocytes count i n urine sediment (number/area)Ordered By: Waqas Pierce on 10-23-2022 WBC Auto (Urine sed) [#/Area] 10-19 [HPF] 0-4 [facility] Bilirubin Test strip Ql (U)O rdered By: Waqas Pierce on 10-23-2022 Bilirubin Ql (U) Negative Negative [facility] Color Auto (U)Ordered By: Shay Pierce on 10-23-2022 Color (U) Yellow Yellow [facility] Ketones Auto test strip (U) [Mass/Vol]Ordered By: Waqas Pierce on 10-23-2022 Ketones (U) [Mass/Vol] Negative Negative [facility] - UrinalysisOrder ed By: Waqas Pierce on 10-23-2022 Hyaline casts LM Ql (Urine sed) 0-8 [LPF] 0-8 [facility] Nitrite Test strip Ql (U)Ord ered By: Waqas Pierce on 10-23-2022 Nitrite Ql (U) Negative Negative [facility] Protein Auto test strip (U) [Mass/Vol]Ordered By: Waqas Pierce on 10-23-2022 Protein (U) [Mass/Vol] Negative Negative [facility] Specific gravity Auto test s trip (U) [Rel density]Ordered By: Waqas Pierce on 10-23-2022 Specific gravity (U) [Rel density] 1.016 1.001-1.03 0 [facility] Squamous epithelial cells de tection in urine sediment by light microscopyOrdered By: Waqas Pierce on 10-23-2022 Epithelial cells.squamous LM Ql (Urine sed) 5-9 [HPF] 0-2 [facility] Urine Cultureon 10-23-2022 Bacteria identified Cx Nom (U) [facility] Other Urine bacteria detection by automated methodOrdered By: Waqas Pierce on 10-23-2022 Bacteria Auto Ql (U) None seen None Seen [facility] Urine clarity by refractomet ry automatedOrdered By: Waqas Pierce on 10-23-2022 Clarity Refractometry automated (U) Clear Clear [facility] Urine glucose measurement by automated test strip (mass/volume)Ordered By: Waqas Pierce on 10-23-2022 Glucose Auto test strip (U) [Mass/Vol] Normal mg/dL Normal [facility] Urine hemoglobin detection b y automated test stripOrdered By: Waqas Pierce on 10-23-2022 Hemoglobin Auto test strip Ql (U) Negative Negative [facility] Urine leukocyte esterase det ection by automated test stripOrdered By: Waqas Pierce on 10-23-2022 Leukocyte esterase Auto test strip Ql (U) 3+ Negative [facility] Urobilinogen Auto test strip (U) [Mass/Vol]Ordered By: Waqas Pierce on 10-23-2022 Urobilinogen (U) [Mass/Vol] Normal mg/dL Normal [facility] pH Auto test strip (U)Ordere d By: Waqas Pierce on 10-23-2022 pH (U) 6.0 [pH] 5.0-9.0 [facility] A1C HEMOGLOBINon 10-13-2022 HbA1c (Bld) [Mass fraction] 5.9 % [facility] [employer] Other HbA1c (Bld) [Mass fraction]o n 10-13-2022 A1C HEMOGLOBIN [facility] [employer] Other XR FOOT LT MIN 3 VIEWSon [...] by: ALEX RYAN Date: 2022-09-20 16:40 Normal [facility] XR LSPINE 2_3 VIEWSon 2021 XR LSPINE 2_3 VIEWS EXAMINATION: XR LSPI NE 2_3 VIEWS HISTORY: Low back pain COMPARISON: 09/26/2019 FINDINGS: BONES: Mild dextrocurvature. Moderate to severe spondylosis and facet osteoarthropathy DISC SPACES: Multilevel disc space narrowing most significant at L5-S1 PARASPINOUS: Negative. No paraspinous abnormality is seen. OTHER: Severe right hip osteoarthropathy with vafq-sc-zbxm articulation. Left hip arthroplasty IMPRESSION: Moderate to severe degenerative changes Electronically authenticated by: SHAWNEE KELLY Date: 2022-08-20 11:47 Normal [facility] PAP ACOG PANEL 2: 30 to 65on 06-13-2022 . . Normal [facility] Comment on above: Result Comment: Perf ormed at: WB Performed By: #### [id number] ####[facility] [address] [place], [place] [address]KrMiguel Cao Age Gdln ACOG Testing 30-65 Normal [facility] Comment on above: Performed By: #### [id number] ####[facility] [address] [place] [address]Dr. Darrick Cao DIAGNOSIS: Comment Normal [facility] Comment on above: Result Comment: NEGA TIVE FOR INTRAEPITHELIAL LESION OR MALIGNANCY. THIS SPECIMEN WAS RESCREENED PART OF OUR CUSTOMS ENTRY WRITER PROGRAM. Performed at: WB Performed By: #### [id number] ####[facility] [address] [place], [place] [address]DrMiguel Cao HPV Aptima Negative Normal Negative [facility] Comment on above: Result Comment: This nucleic acid amplification test detects fourteen high-risk HPV types (16,18,31,33,35,39,45,51,52,56,58,59,66,68) without differentiation. Performed at: =G Performed By: #### [id number] ####[place] [address]Dr. Darrick Cao Methodology: Comment Normal [facility] Comment on above: Result Comment: This liquid based ThinPrep(R) pap test was screened with the use of an image guided system. Performed at: WB Performed By: #### [id number] ####[facility] [address] [place], [place] [address]Dr. Darrick Cao Note: Comment Normal [facility] Comment on above: Result Comment: The Pap smear is a screening test designed to aid in the detection of premalignant and malignant conditions of the uterine cervix. It is not a diagnostic procedure and should not be used as the sole means of detecting cervical cancer. Both false-positive and false-negative reports do occur. . Performed at: WB Performed By: #### [id number] ####[facility] [address] [place], [place] [address]Dr. Darrick Cao Performed by: Comment Normal [facility] Comment on above: Result Comment: Solange Ann, Dredge Lever Operator (ASCP) Performed at: WB Performed By: #### [id number] ####[facility] [address] [place], [place] [address]DrMiguel Cao QC reviewed by: Comment Normal [facility] Comment on above: Result Comment: Navi Rush, Supervisory Dredge Lever Operator (ASCP) Performed at: WB Performed By: #### [id number] ####[facility] [address] [place], [place] [address]DtMiguel Darrick Cao Specimen adequacy: Comment Normal [facility] Comment on above: Result Comment: Sati sfactory for evaluation. Endocervical and/or squamous metaplastic cells (endocervical component) are present. Performed at: WB Performed By: #### [id number] ####[facility] [address] [place], [place] [address]AvMiguel Darrick Cao US PELVIS AND TRANSVAGon US [...] ARIELA SCHWAB Date: 2022-06-13 14:50 Normal [facility] ACID FAST SMEAR AND CXon Acid Fast Culture Negative Normal [facility] Comment on above: Result Comment: No a liliya fast bacilli isolated after 6 weeks. Performed By: #### A FB ####[facility] [address] [place], [place] [address]AsMiguel Darrick Cao Acid Fast Smear Negative Normal [facility] Comment on above: Performed By: #### A FB ####[facility] [address] [place] [address]Dr. Darrick Cao [employer] Specimen Processing Tissue Grinding Normal [facility] Comment on above: Performed By: #### A FB ####[facility] [address] [place] [address]Dr. Darrick Cao FUNGAL CULTUREon 05-23-2022 Fungus (Mycology) Culture Final report Normal [facility] Comment on above: Performed By: #### C XFUN ####[facility] [address] [place] [address]Dr. Darrick Cao Fungus Stain Final report Normal [facility] Comment on above: Performed By: #### C XFUN ####[facility] [address] [place], [place] [address]Dr. Darrick Cao Result 1 Comment Normal [facility] Comment on above: Result Comment: MAYE/ Calcofluor preparation: no fungus observed. Performed By: #### C XFUN ####[facility] [address] [place], [place] [address]Dr. Darrick Cao Result Comment: No y east or mold isolated after 4 weeks. WOUND CULTUREon 04-28-2022 Bacteria identified Aer cx Nom (Unsp spec) Final report Normal [facility] Comment on above: Performed By: #### C XWND #### [facility] [address] [place] [address] Dr. Darrick Cao Result 1 Comment Normal [facility] Comment on above: Result Comment: No g rowth in 36 - 48 hours. Performed By: #### C XWND #### [facility] [address] [place] [address] Dr. Darrick Cao CULTURE WOUNDon 04-26-2022 CULTURE [...] S F Vancomycin 1 S F Normal [facility] Comment on above: Performed By: #### W OUNDCX ####[facility] [address] [place] [address]Dr. Darrick Cao CBC AUTO DIFFon 04-25-2022 BASO # 0.0 103/ul Normal 0.0-0.1 [facility] Comment on above: Performed By: #### C XWND #### [facility] [address] [place] [address] Dr. Darrick Cao Basophils/100 WBC (Bld) 0.5 % Normal 0.2-2.0 [facility] Comment on above: Performed By: #### C XWND #### [facility] [address] [place] [address] Dr. Darrick Cao EO # 0.1 103/ul Normal 0.0-0.7 [facility] Comment on above: Performed By: #### C XWND #### [facility] [address] [place] [address] Dr. Darrick Cao Eosinophils/100 WBC (Bld) 1.1 % Normal 0.9-7.0 [facility] Comment on above: Performed By: #### C XWND #### [facility] [address] [place] [address] Dr. Darrick Cao Erythrocyte distribution width (RBC) [Ratio] 15.8 % Critically high 11.0-15.0 [facility] Comment on above: Performed By: #### C XWND #### [facility] [address] [place] [address] Dr. Darrick Cao Hematocrit (Bld) [Volume fraction] 31.7 % Critically low 36.0-48.0 [facility] Comment on above: Performed By: #### C XWND #### [facility] [address] [place] [address] Dr. Darrick Cao Hemoglobin (Bld) [Mass/Vol] 10.1 g/dL Critically low 12.0-16.0 [facility] Comment on above: Performed By: #### C XWND #### [facility] [address] [place] [address] Dr. Darrick Cao IG # 0.02 10e3/ul Normal 0.00-0.03 [facility] Comment on above: Performed By: #### C XWND #### [facility] [address] [place] [address] Dr. Darrick Cao IG % 0.3 % Normal 0.0-0.5 [facility] Comment on above: Performed By: #### C XWND #### [facility] [address] [place] [address] Dr. Darrick Cao LYMPH # 1.8 103/ul Normal 1.2-3.8 [facility] Comment on above: Performed By: #### C XWND #### [facility] [address] [place] [address] Dr. Darrick Cao Lymphocytes/100 WBC (Bld) 24.3 % Normal 20.5-60.0 [facility] Comment on above: Performed By: #### C XWND #### [facility] [address] [place] [address] Dr. Darrick Cao MANUAL DIFF REQ NO Normal [facility] Comment on above: Performed By: #### C XWND #### [facility] [address] [place] [address] Dr. Darrick Cao MCH (RBC) [Entitic mass] 28.0 pg Normal 26.7-34.0 [facility] Comment on above: Performed By: #### C XWND #### [facility] [address] [place] [address] Dr. Darrick Cao MCHC (RBC) [Mass/Vol] 31.9 g/dL Normal 29.9-35.2 [facility] Comment on above: Performed By: #### C XWND #### [facility] [address] [place] [address] Dr. Darrick Cao MCV (RBC) [Entitic vol] 87.8 fL Normal 81.0-99.0 [facility] Comment on above: Performed By: #### C XWND #### [facility] [address] [place] [address] Dr. Darrick Cao MONO # 0.5 103/ul Normal 0.3-0.8 [facility] Comment on above: Performed By: #### C XWND #### [facility] [address] [place] [address] Dr. Darrick Cao Monocytes/100 WBC (Bld) 7.2 % Normal 1.7-12.0 [facility] Comment on above: Performed By: #### C XWND #### [facility] [address] [place] [address] Dr. Darrick Cao NEUT # 5.0 103/ul Normal 1.4-6.5 [facility] Comment on above: Performed By: #### C XWND #### [facility] [address] [place] [address] Dr. Darrick Cao Neutrophils/100 WBC (Bld) 66.6 % Normal 43.0-75.0 [facility] Comment on above: Performed By: #### C XWND #### [facility] [address] [place] [address] Dr. Darrick Cao Platelet mean volume (Bld) [Entitic vol] 9.6 fL Normal 9.5-13.5 [facility] Comment on above: Performed By: #### C XWND #### [facility] [address] [place] [address] Dr. Darrick Cao PLT 295 103/ul Normal 150-450 [facility] Comment on above: Performed By: #### C XWND #### [facility] [address] [place] [address] Dr. Darrick Cao RBC 3.61 106/ul Critically low 4.20-5.40 [facility] Comment on above: Performed By: #### C XWND #### [facility] [address] [place] [address] Dr. Darrick Cao WBC 7.5 103/ul Normal 4.0-11.0 [facility] Comment on above: Performed By: #### C XWND #### [facility] [address] [place] [address] Dr. Darrick Cao ER URINE PROFILEon 2 Bilirubin Ql (U) Negative Normal NEGATIVE [facility] Comment on above: Performed By: #### U MICRO, ERUR ####[facility] [address] [place] [address]Dr. Darrick Cao Clarity (U) CLEAR Normal CLEAR [facility] Comment on above: Performed By: #### U MICRO, ERUR ####[facility] [address] [place] [address]Dr. Darrick Cao Color (U) LT. YELLOW Normal YELLOW [facility] Comment on above: Performed By: #### U MICRO, ERUR ####[facility] [address] [place], [place] [address]Dr. Darrick CHAPA A micrscopic examina tion will be performed if indicated. Normal [facility] Comment on above: Performed By: #### U MICRO, ERUR ####[facility] [address] [place], [place] [address]Dr. Darrick Cao Glucose Ql (U) Negative Normal NEGATIVE [facility] Comment on above: Performed By: #### U MICRO, ERUR ####[facility] [address] [place], [place] [address]Dr. Darrick Cao Hemoglobin Ql (U) SMALL Abnormal NEGATIVE [facility] Comment on above: Performed By: #### U MICRO, ERUR ####[facility] [address] [place], [place] [address]Dr. Darrick Cao Ketones Ql (U) Negative Normal NEGATIVE [facility] Comment on above: Performed By: #### U MICRO, ERUR ####[facility] [address] [place], [place] [address]Dr. Darrick Cao LEUKOCYTES Negative Normal NEGATIVE [facility] Comment on above: Performed By: #### U MICRO, ERUR ####[facility] [address] [place], [place] [address]Dr. Darrick Cao Nitrite Ql (U) Negative Normal NEGATIVE [facility] Comment on above: Performed By: #### U MICRO, ERUR ####[facility] [address] [place] [address]Dr. Darrick Cao pH (U) 6.0 [pH] Normal 5-9 [facility] Comment on above: Performed By: #### U MICRO, ERUR ####[facility] [address] [place] [address]Dr. Darrick Cao SPEC GRAVITY 1.020 Normal 1.005-<=1. 025 [facility] Comment on above: Performed By: #### U MICRO, ERUR ####[facility] [address] [place] [address]Dr. Darrick Cao UA PROTEIN Negative Normal NEGATIVE/ TRACE [facility] Comment on above: Performed By: #### U MICRO, ERUR ####[facility] [address] [place] [address]Dr. Darrick Cao UR MICRO IND INDICATED Normal [facility] Comment on above: Performed By: #### U MICRO, ERUR ####[facility] [address] [place], [place] [address]Dr. Darrick Cao Urobilinogen Qn (U) 0.2 {Larissa'U}/dL Normal 0.2 - 1. 0 [facility] Comment on above: Performed By: #### U MICRO, ERUR ####[facility] [address] [place] [address]DrMiguel Cao POINT OF CARE GLUCOSEon 04-01 Glucose [Mass/Vol] 118 mg/dL Critically high 74-106 [facility] Comment on above: Performed By: #### P OCGLUC ####[facility] [address] [place] [address]DrMiguel Cao PROF 14(COMP METB)on 022 Albumin [Mass/Vol] 2.9 g/dL Critically low 3.4-5.0 [facility] Comment on above: Performed By: #### P OCGLUC #### [facility] [address] [place] [address] [address] Darrick Cao Albumin/Globulin [Mass ratio] 0.8 {ratio} Normal [facility] Comment on above: Performed By: #### P OCGLUC #### [facility] [address] [place] [address] [address] Darrick Cao ALP [Catalytic activity/Vol] 113 U/L Normal 46-116 [facility] Comment on above: Performed By: #### P OCGLUC #### [facility] [address] [place] [address] [address] Darrick Cao ALT [Catalytic activity/Vol] 56 U/L Normal 14-59 [facility] Comment on above: Performed By: #### P OCGLUC #### [facility] [address] [place] [address] [address] Darrick Cao Anion gap [Moles/Vol] 8.8 mmol/L Normal [facility] Comment on above: Performed By: #### P OCGLUC #### [facility] [address] [place] [address] [address] Darrick Cao AST [Catalytic activity/Vol] 30 U/L Normal 15-37 [facility] Comment on above: Performed By: #### P OCGLUC #### [facility] [address] [place] [address] [address] Darrick Cao Bilirubin [Mass/Vol] 0.3 mg/dL Normal 0.2-1.0 [facility] Comment on above: Performed By: #### P OCGLUC #### [facility] [address] [place] [address] [address] Darrick Cao Calcium [Mass/Vol] 8.6 mg/dL Normal 8.5-10.1 [facility] Comment on above: Performed By: #### P OCGLUC #### [facility] [address] [place] [address] [address] Darrick Cao Chloride [Moles/Vol] 105 mmol/L Normal 98-107 [facility] Comment on above: Performed By: #### P OCGLUC #### [facility] [address] [place] [address] [address] Darrick Cao CO2 [Moles/Vol] 30.4 mmol/L Normal 21.0-32.0 [facility] Comment on above: Performed By: #### P OCGLUC #### [facility] [address] [place] [address] [address] Darrick Cao Creatinine [Mass/Vol] 0.82 mg/dL Normal 0.55-1.02 [facility] Comment on above: Performed By: #### P OCGLUC #### [facility] [address] [place] [address] [address] Darrick Cao EGFR-AF DOMINICAN >60 Normal >=60 [facility] Comment on above: Performed By: #### P OCGLUC #### [facility] [address] [place] [address] [address] Darrick Cao EGFR-NON AF DOMINICAN >60 Normal >=60 [facility] Comment on above: Performed By: #### P OCGLUC #### [facility] [address] [place] [address] [address] Darrick Cao Globulin (S) [Mass/Vol] 3.6 g/dL Normal [facility] Comment on above: Performed By: #### P OCGLUC #### [facility] [address] [place] [address] [address] Darrick Cao Glucose [Mass/Vol] 103 mg/dL Normal 74-106 [facility] Comment on above: Performed By: #### P OCGLUC #### [facility] [address] [place] [address] [address] Darrick Cao Potassium [Moles/Vol] 4.2 mmol/L Normal 3.5-5.1 [facility] Comment on above: Performed By: #### P OCGLUC #### [facility] [address] [place] [address] [address] Darrick Cao Protein [Mass/Vol] 6.5 g/dL Normal 6.4-8.2 [facility] Comment on above: Performed By: #### P OCGLUC #### [facility] [address] [place] [address] [address] Darrick Cao Sodium [Moles/Vol] 140 mmol/L Normal 136-145 [facility] Comment on above: Performed By: #### P OCGLUC #### [facility] [address] [place] [address] [address] Darrick Coa Urea nitrogen [Mass/Vol] 11.0 mg/dL Normal 7.0-18.0 [facility] Comment on above: Performed By: #### P OCGLUC #### [facility] [address] [place] [address] [address] Darrick Cao Urea nitrogen/Creatinine [Mass ratio] 13.4 mg/mg Normal [facility] Comment on above: Performed By: #### P OCGLUC #### [facility] [address] [place] [address] [address] Darrick Cao URINE MICROSCOPIC ONLYon BACTERIA NONE SEEN Normal NONE SEEN [facility] Comment on above: Performed By: #### U MICRO, ERUR ####[facility] [address] [place] [address]DrMiguel Cao Bacteria identified Cx Nom (U) NOT INDICATED Normal [facility] Comment on above: Performed By: #### U MICRO, ERUR ####[facility] [address] [place] [address]Dr. Darrick Cao CAST NONE SEEN Normal NONE SEEN [facility] Comment on above: Performed By: #### U MICRO, ERUR ####[facility] [address] [place] [address]DrMiguel Cao Crystals LM Nom (Urine sed) NONE SEEN Normal NONE SEEN [facility] Comment on above: Performed By: #### U MICRO, ERUR ####[facility] [address] [place] [address]Dr. Darrick Cao Epithelial cells LM Ql (Urine sed) RARE Normal NONE SEEN /RARE [facility] Comment on above: Performed By: #### U MICRO, ERUR ####[facility] [address] [place] [address]Dr. Darrick Cao MUCOUS NONE SEEN Normal NONE SEEN [facility] Comment on above: Performed By: #### U MICRO, ERUR ####[facility] [address] [place] [address]Dr. Darrick Cao RBC 5-10 Abnormal 0-2 [facility] Comment on above: Performed By: #### U MICRO, ERUR ####[facility] [address] [place], [place] [address]EiDr. Darrick Cao WBC 0-2 Abnormal NONE SEEN [facility] Comment on above: Performed By: #### U MICRO, ERUR ####[facility] [address] [place], [place] [address]JqDr. Darrick Cao XR CHEST 2 Von 04-25-2022 [...] AMY FOWLER Date: 2022-04-25 20:07 Normal [facility] CBC AUTO DIFFon 04-24-2022 BASO # 0.1 103/ul Normal 0.0-0.1 [facility] Comment on above: Performed By: #### P OCGLUC #### [facility] [address] [address] [address] Darrick Cao Basophils/100 WBC (Bld) 0.8 % Normal 0.2-2.0 [facility] Comment on above: Performed By: #### P OCGLUC #### [facility] [address] [place] [address] [address] Darrick Cao EO # 0.1 103/ul Normal 0.0-0.7 [facility] Comment on above: Performed By: #### P OCGLUC #### [facility] [address] [place] [address] [address] Darrick Cao Eosinophils/100 WBC (Bld) 1.9 % Normal 0.9-7.0 [facility] Comment on above: Performed By: #### P OCGLUC #### [facility] [address] [place] [address] [address] Darrick Cao Erythrocyte distribution width (RBC) [Ratio] 15.6 % Critically high 11.0-15.0 [facility] Comment on above: Performed By: #### P OCGLUC #### [facility] [address] [place] [address] [address] Darrick Cao Hematocrit (Bld) [Volume fraction] 35.4 % Critically low 36.0-48.0 [facility] Comment on above: Performed By: #### P OCGLUC #### [facility] [address] [address] [address] Darrick Cao Hemoglobin (Bld) [Mass/Vol] 11.4 g/dL Critically low 12.0-16.0 [facility] Comment on above: Performed By: #### P OCGLUC #### [facility] [address] [place] [address] Dr. Darrick Cao IG # 0.02 10e3/ul Normal 0.00-0.03 [facility] Comment on above: Performed By: #### P OCGLUC #### [facility] [address] [place] [address] [address] Darrick Cao IG % 0.3 % Normal 0.0-0.5 [facility] Comment on above: Performed By: #### P OCGLUC #### [facility] [address] [place] [address] [address] Darrick Cao LYMPH # 1.9 103/ul Normal 1.2-3.8 [facility] Comment on above: Performed By: #### P OCGLUC #### [facility] [address] [place] [address] Dr. Darrick Cao Lymphocytes/100 WBC (Bld) 30.2 % Normal 20.5-60.0 [facility] Comment on above: Performed By: #### P OCGLUC #### [facility] [address] [place] [address] [address] Darrick Cao MANUAL DIFF REQ NO Normal [facility] Comment on above: Performed By: #### P OCGLUC #### [facility] [address] [place] [address] Dr. Darrick Cao MCH (RBC) [Entitic mass] 27.9 pg Normal 26.7-34.0 [facility] Comment on above: Performed By: #### P OCGLUC #### [facility] [address] [address] [address] Darrick Cao MCHC (RBC) [Mass/Vol] 32.2 g/dL Normal 29.9-35.2 [facility] Comment on above: Performed By: #### P OCGLUC #### [facility] [address] [address] [address] Darrick Cao MCV (RBC) [Entitic vol] 86.6 fL Normal 81.0-99.0 [facility] [facility] Comment on above: Performed By: #### P OCGLUC #### [facility] [address] [address] [address] Darrick Cao MONO # 0.6 103/ul Normal 0.3-0.8 [facility] Comment on above: Performed By: #### P OCGLUC #### [facility] [address] [place] [address] Dr. Darrick Cao Monocytes/100 WBC (Bld) 9.0 % Normal 1.7-12.0 [facility] Comment on above: Performed By: #### P OCGLUC #### [facility] [address] [place] [address] Dr. Darrick Cao NEUT # 3.7 103/ul Normal 1.4-6.5 [facility] Comment on above: Performed By: #### P OCGLUC #### [facility] [address] [place] [address] Dr. Darrick Cao Neutrophils/100 WBC (Bld) 57.8 % Normal 43.0-75.0 [facility] Comment on above: Performed By: #### P OCGLUC #### [facility] [address] [address] [address] Darrick Cao Platelet mean volume (Bld) [Entitic vol] 9.5 fL Normal 9.5-13.5 [facility] Comment on above: Performed By: #### P OCGLUC #### [facility] [address] [place] [address] Dr. Darrick Cao PLT 256 103/ul Normal 150-450 [facility] Comment on above: Performed By: #### P OCGLUC #### [facility] [address] [address] [address] Darrick Cao RBC 4.09 106/ul Critically low 4.20-5.40 [facility] Comment on above: Performed By: #### P OCGLUC #### [facility] [address] [address] [address] Darrick Cao WBC 6.3 103/ul Normal 4.0-11.0 [facility] Comment on above: Performed By: #### P OCGLUC #### [facility] [address] [address] [address] Darrick Cao GRAM STAINon 04-24-2022 COMMENTS NO ORGANISMS OBSERVED Normal [facility] Comment on above: Performed By: #### C XWND #### [facility] [address] [place] [address] Dr. Darrick Cao DIPHTHEROIDS Normal [facility] Comment on above: Performed By: #### C XWND #### [facility] [address] [address] [address] Darrick Cao EPITHELIALS Normal [facility] Comment on above: Performed By: #### C XWND #### [facility] [address] [address] [address] Darrick Cao FUNGAL ELEMENTS Normal [facility] Comment on above: Performed By: #### C XWND #### [facility] [address] [address] [address] Darrick SOLOMON NEG BACILLI Normal [facility] Comment on above: Performed By: #### C XWND #### [facility] [address] [address] [address] Darrick SOLOMON NEG DIPPLOCOCCI Normal [facility] Comment on above: Performed By: #### C XWND #### [facility] [address] [place] [address] Dr. Darrick Cao GRAM POS BACILLI Normal [facility] Comment on above: Performed By: #### C XWND #### [facility] [address] [address] [address] Darrick Cao GRAM POSITIVE COCCI Normal [facility] Comment on above: Performed By: #### C XWND #### [facility] [address] [address] [address] Darrick Cao GRAM STAIN SOURCE Post irrigation left foot Normal [facility] Comment on above: Performed By: #### C XWND #### [facility] [address] [address] [address] Darrick Cao GS_DIPTH Normal [facility] Comment on above: Performed By: #### C XWND #### [facility] [address] [address] [address] Darrick Cao WBC NONE SEEN [facility] Comment on above: Performed By: #### C XWND #### [facility] [address] [address] [address] Darrick Cao POINT OF CARE GLUCOSEon 04-01 Glucose [Mass/Vol] 132 mg/dL Critically high 74-106 [facility] Comment on above: Performed By: #### P OCGLUC #### [facility] [address] [address] [address] Darrick Cao Glucose [Mass/Vol] 105 mg/dL Normal 74-106 [facility] Comment on above: Performed By: #### P OCGLUC ####[facility] [id number] [address]Dr. Darrick Cao PROF 14(COMP METB)on 022 Albumin [Mass/Vol] 2.9 g/dL Critically low 3.4-5.0 [facility] Comment on above: Performed By: #### P OCGLUC #### [facility] [address] [address] [address] Darrick Cao Albumin/Globulin [Mass ratio] 0.8 {ratio} Normal [facility] Comment on above: Performed By: #### P OCGLUC #### [facility] [address] [address] [address] Darrick Cao ALP [Catalytic activity/Vol] 122 U/L Critically high 46-116 [facility] Comment on above: Performed By: #### P OCGLUC #### [facility] [address] [address] [address] Darrick Cao ALT [Catalytic activity/Vol] 65 U/L Critically high 14-59 [facility] Comment on above: Performed By: #### P OCGLUC #### [facility] [address] [address] [address] Darrick Cao Anion gap [Moles/Vol] 12.2 mmol/L [facility] Comment on above: Performed By: #### P OCGLUC #### [facility] [address] [address] [address] Darrick Cao AST [Catalytic activity/Vol] 28 U/L Normal 15-37 [facility] Comment on above: Performed By: #### P OCGLUC #### [facility] [address] [address] [address] Darrick Cao Bilirubin [Mass/Vol] 0.3 mg/dL Normal 0.2-1.0 [facility] Comment on above: Performed By: #### P OCGLUC #### [facility] [address] [address] [address] Darrick Cao Calcium [Mass/Vol] 8.5 mg/dL Normal 8.5-10.1 [facility] Comment on above: Performed By: #### P OCGLUC #### [facility] [address] [address] [address] Darrick Cao Chloride [Moles/Vol] 107 mmol/L Normal 98-107 [facility] Comment on above: Performed By: #### P OCGLUC #### [facility] [address] [address] [address] Darrick Cao CO2 [Moles/Vol] 25.9 mmol/L Normal 21.0-32.0 [facility] Comment on above: Performed By: #### P OCGLUC #### [facility] [address] [address] [address] Darrick Cao Creatinine [Mass/Vol] 0.87 mg/dL Normal 0.55-1.02 [facility] Comment on above: Performed By: #### P OCGLUC #### [facility] [address] [address] [address] Darrick Cao EGFR-AF DOMINICAN >60 Normal >=60 [facility] Comment on above: Performed By: #### P OCGLUC #### [facility] [address] [address] [address] Darrick Cao EGFR-NON AF DOMINICAN >60 Normal >=60 [facility] Comment on above: Performed By: #### P OCGLUC #### [facility] [address] [address] [address] Darrick Cao Globulin (S) [Mass/Vol] 3.8 g/dL Normal [facility] Comment on above: Performed By: #### P OCGLUC #### [facility] [address] [address] [address] Darrick Cao Glucose [Mass/Vol] 107 mg/dL Critically high 74-106 [facility] Comment on above: Performed By: #### P OCGLUC #### [facility] [address] [address] [address] Darrick Cao Potassium [Moles/Vol] 4.1 mmol/L Normal 3.5-5.1 [facility] Comment on above: Performed By: #### P OCGLUC #### [facility] [address] [address] [address] Darrick Cao Protein [Mass/Vol] 6.7 g/dL Normal 6.4-8.2 [facility] Comment on above: Performed By: #### P OCGLUC #### [facility] [address] [address] [address] Darrick Cao Sodium [Moles/Vol] 141 mmol/L Normal 136-145 [facility] Comment on above: Performed By: #### P OCGLUC #### [facility] [address] [address] [address] Darrick Cao Urea nitrogen [Mass/Vol] 10.0 mg/dL Normal 7.0-18.0 [facility] Comment on above: Performed By: #### P OCGLUC #### [facility] [address] [place] [address] Dr. Darrick Cao Urea nitrogen/Creatinine [Mass ratio] 11.5 mg/mg Normal [facility] Comment on above: Performed By: #### P OCGLUC #### [facility] [address] [place] [address] Dr. Darrick Cao VANCOMYCIN TROUGHon 04-24-20 VANCOMYCIN TROUGH 9.6 ug/ml Normal 5.0-20.0 [facility] Comment on above: Performed By: #### V ANCT #### [facility] [address] [place] [address] Dr. Darrick Cao CBC AUTO DIFFon 04-23-2022 BASO # 0.1 103/ul Normal 0.0-0.1 [facility] Comment on above: Performed By: #### C XWND #### [facility] [address] [place] [address] Dr. Darrick Cao Basophils/100 WBC (Bld) 0.6 % Normal 0.2-2.0 [facility] Comment on above: Performed By: #### C XWND #### [facility] [address] [place] [address] Dr. Darrick Cao EO # 0.1 103/ul Normal 0.0-0.7 [facility] Comment on above: Performed By: #### C XWND #### [facility] [address] [place] [address] Dr. Darrick Cao Eosinophils/100 WBC (Bld) 0.6 % Critically low 0.9-7.0 [facility] Comment on above: Performed By: #### C XWND #### [facility] [address] [place] [address] Dr. Darrick Cao Erythrocyte distribution width (RBC) [Ratio] 15.8 % Critically high 11.0-15.0 [facility] Comment on above: Performed By: #### C XWND #### [facility] [address] [place] [address] Dr. Darrick Cao Hematocrit (Bld) [Volume fraction] 34.0 % Critically low 36.0-48.0 [facility] Comment on above: Performed By: #### C XWND #### [facility] [address] [place] [address] Dr. Darrick Cao Hemoglobin (Bld) [Mass/Vol] 11.0 g/dL Critically low 12.0-16.0 [facility] Comment on above: Performed By: #### C XWND #### [facility] [address] [place] [address] Dr. Darrick Cao IG # 0.03 10e3/ul Normal 0.00-0.03 [facility] Comment on above: Performed By: #### C XWND #### [facility] [address] [place] [address] Dr. Darrick Cao IG % 0.4 % Normal 0.0-0.5 [facility] Comment on above: Performed By: #### C XWND #### [facility] [address] [place] [address] Dr. Darrick Cao LYMPH # 1.6 103/ul Normal 1.2-3.8 [facility] Comment on above: Performed By: #### C XWND #### [facility] [address] [place] [address] Dr. Darrick Cao Lymphocytes/100 WBC (Bld) 19.6 % Critically low 20.5-60.0 [facility] Comment on above: Performed By: #### C XWND #### [facility] [address] [place] [address] Dr. Darrick Cao MANUAL DIFF REQ NO Normal [facility] Comment on above: Performed By: #### C XWND #### [facility] [address] [place] [address] Dr. Darrick Cao MCH (RBC) [Entitic mass] 28.1 pg Normal 26.7-34.0 [facility] Comment on above: Performed By: #### C XWND #### [facility] [address] [place] [address] Dr. Darrick Cao MCHC (RBC) [Mass/Vol] 32.4 g/dL Normal 29.9-35.2 [facility] Comment on above: Performed By: #### C XWND #### [facility] [address] [place] [address] Dr. Darrick Cao MCV (RBC) [Entitic vol] 87.0 fL Normal 81.0-99.0 [facility] Comment on above: Performed By: #### C XWND #### [facility] [address] [place] [address] Dr. Darrick Cao MONO # 0.8 103/ul Normal 0.3-0.8 [facility] Comment on above: Performed By: #### C XWND #### [facility] [address] [place] [address] Dr. Darrick Cao Monocytes/100 WBC (Bld) 10.3 % Normal 1.7-12.0 [facility] Comment on above: Performed By: #### C XWND #### [facility] [address] [place] [address] Dr. Darrick Cao NEUT # 5.4 103/ul Normal 1.4-6.5 [facility] Comment on above: Performed By: #### C XWND #### [facility] [address] [place] [address] Dr. Darrick Cao Neutrophils/100 WBC (Bld) 68.5 % Normal 43.0-75.0 [facility] Comment on above: Performed By: #### C XWND #### [facility] [address] [place] [address] Dr. Darrick Cao Platelet mean volume (Bld) [Entitic vol] 9.9 fL Normal 9.5-13.5 [facility] Comment on above: Performed By: #### C XWND #### [facility] [address] [place] [address] Dr. Darrick Cao PLT 276 103/ul Normal 150-450 [facility] Comment on above: Performed By: #### C XWND #### [facility] [address] [place] [address] Dr. Darrick Cao RBC 3.91 106/ul Critically low 4.20-5.40 [facility] Comment on above: Performed By: #### C XWND #### [facility] [address] [address] [address] Darrick Cao WBC 7.9 103/ul Normal 4.0-11.0 [facility] Comment on above: Performed By: #### C XWND #### [facility] [address] [address] [address] Darrick Cao POINT OF CARE GLUCOSEon 04-01 Glucose [Mass/Vol] 138 mg/dL Critically high 74-106 [facility] Comment on above: Performed By: #### P OCGLUC ####[facility] [address] [address]Dr. Darrick Cao Glucose [Mass/Vol] 151 mg/dL Critically high 74-106 [facility] Comment on above: Performed By: #### P OCGLUC #### [facility] [address] [address] [address] Darrick Cao Glucose [Mass/Vol] 141 mg/dL Critically high 74-106 [facility] Comment on above: Performed By: #### P OCGLUC ####[facility] [address] [address]Dr. Darrick Cao PROF 14(COMP METB)on 022 Albumin [Mass/Vol] 3.0 g/dL Critically low 3.4-5.0 [facility] Comment on above: Performed By: #### C XWND #### [facility] [address] [place] [address] Dr. Darrick Cao Albumin/Globulin [Mass ratio] 0.9 {ratio} Normal [facility] Comment on above: Performed By: #### C XWND #### [facility] [address] [place] [address] Dr. Darrick Cao ALP [Catalytic activity/Vol] 128 U/L Critically high 46-116 [facility] Comment on above: Performed By: #### C XWND #### [facility] [address] [place], [place] [id number] Dr. Darrick Cao ALT [Catalytic activity/Vol] 71 U/L Critically high 14-59 [facility] Comment on above: Performed By: #### C XWND #### [facility] [address] [address] [address] Darrick Cao Anion gap [Moles/Vol] 13.1 mmol/L Normal [facility] Comment on above: Performed By: #### C XWND #### [facility] [address] [address] [address] Darrick Cao AST [Catalytic activity/Vol] 50 U/L Critically high 15-37 [facility] Comment on above: Performed By: #### C XWND #### [facility] [address] [place] [address] Dr. Darrick Cao Bilirubin [Mass/Vol] 0.3 mg/dL Normal 0.2-1.0 [facility] Comment on above: Performed By: #### C XWND #### [facility] [address] [place] [address] Dr. Darrick Cao Calcium [Mass/Vol] 8.2 mg/dL Critically low 8.5-10.1 [facility] Comment on above: Performed By: #### C XWND #### [facility] [address] [place] [address] Dr. Darrick Cao Chloride [Moles/Vol] 110 mmol/L Critically high 98-107 [facility] Comment on above: Performed By: #### C XWND #### [facility] [address] [place] [address] Dr. Darrick Cao CO2 [Moles/Vol] 23.4 mmol/L Normal 21.0-32.0 [facility] Comment on above: Performed By: #### C XWND #### [facility] [address] [place] [address] Dr. Darrick Cao Creatinine [Mass/Vol] 0.96 mg/dL Normal 0.55-1.02 [facility] Comment on above: Performed By: #### C XWND #### [facility] [address] [address] [address] Darrick Cao EGFR-AF DOMINICAN >60 Normal >=60 [facility] Comment on above: Performed By: #### C XWND #### [facility] [address] [address] [address] Darrick Cao EGFR-NON AF DOMINICAN 59 mL/min/1.73m2 Critically low >=60 [facility] Comment on above: Performed By: #### C XWND #### [facility] [address] [address] [address] Darrick Cao Globulin (S) [Mass/Vol] 3.3 g/dL Normal [facility] Comment on above: Performed By: #### C XWND #### [facility] [address] [address] [address] Darrick Cao Glucose [Mass/Vol] 116 mg/dL Critically high 74-106 [facility] Comment on above: Performed By: #### C XWND #### [facility] [address] [address] [address] Darrick Cao Potassium [Moles/Vol] 4.5 mmol/L Normal 3.5-5.1 [facility] Comment on above: Performed By: #### C XWND #### [facility] [address] [address] [address] Darrick Cao Protein [Mass/Vol] 6.3 g/dL Critically low 6.4-8.2 [facility] Comment on above: Performed By: #### C XWND #### [facility] [address] [address] [address] Darrick Cao Sodium [Moles/Vol] 142 mmol/L Normal 136-145 [facility] Comment on above: Performed By: #### C XWND #### [facility] [address] [address] [address] Darrick Cao Urea nitrogen [Mass/Vol] 14.0 mg/dL Normal 7.0-18.0 [facility] Comment on above: Performed By: #### C XWND #### [facility] [address] [place] [address] Dr. Darrick Cao Urea nitrogen/Creatinine [Mass ratio] 14.6 mg/mg Normal [facility] Comment on above: Performed By: #### C XWND #### [facility] [address] [place] [address] Dr. Darrick Cao CBC AUTO DIFFon 04-22-2022 BASO # 0.1 103/ul Normal 0.0-0.1 [facility] Comment on above: Performed By: #### C BC #### [facility] [address] [place] [address] Dr. Darrick Cao Basophils/100 WBC (Bld) 0.7 % Normal 0.2-2.0 [facility] Comment on above: Performed By: #### C BC #### [facility] [address] [place] [address] Dr. Darrick Cao EO # 0.1 103/ul Normal 0.0-0.7 [facility] Comment on above: Performed By: #### C BC #### [facility] [address] [place] [address] Dr. Darrick Cao Eosinophils/100 WBC (Bld) 0.5 % Critically low 0.9-7.0 [facility] Comment on above: Performed By: #### C BC #### [facility] [address] [place] [address] Dr. Darrick Cao Erythrocyte distribution width (RBC) [Ratio] 15.8 % Critically high 11.0-15.0 [facility] Comment on above: Performed By: #### C BC #### [facility] [address] [place] [address] Dr. Darrick Cao Hematocrit (Bld) [Volume fraction] 39.8 % Normal 36.0-48.0 [facility] Comment on above: Performed By: #### C BC #### [facility] [address] [place] [address] Dr. Darrick Cao Hemoglobin (Bld) [Mass/Vol] 12.9 g/dL Normal 12.0-16.0 [facility] Comment on above: Performed By: #### C BC #### [facility] [address] [place] [address] Dr. Darrick Cao IG # 0.03 10e3/ul Normal 0.00-0.03 [facility] Comment on above: Performed By: #### C BC #### [facility] [address] [place] [address] Dr. Darrick Cao IG % 0.3 % Normal 0.0-0.5 [facility] Comment on above: Performed By: #### C BC #### [facility] [address] [place] [address] Dr. Darrick Cao LYMPH # 1.6 103/ul Normal 1.2-3.8 [facility] Comment on above: Performed By: #### C BC #### [facility] [address] [place] [address] Dr. Darrick Cao Lymphocytes/100 WBC (Bld) 16.0 % Critically low 20.5-60.0 [facility] Comment on above: Performed By: #### C BC #### [facility] [address] [place] [address] Dr. Darrick Cao MANUAL DIFF REQ NO Normal [facility] Comment on above: Performed By: #### C BC #### [facility] [address] [place] [address] Dr. Darrick Cao MCH (RBC) [Entitic mass] 28.2 pg Normal 26.7-34.0 [facility] Comment on above: Performed By: #### C BC #### [facility] [address] [place] [address] Dr. Darrick Cao MCHC (RBC) [Mass/Vol] 32.4 g/dL Normal 29.9-35.2 [facility] Comment on above: Performed By: #### C BC #### [facility] [address] [place] [address] Dr. Darrick Cao MCV (RBC) [Entitic vol] 86.9 fL Normal 81.0-99.0 [facility] Comment on above: Performed By: #### C BC #### [facility] [address] [address] [address] Darrick Cao MONO # 0.9 103/ul Critically high 0.3-0.8 [facility] Comment on above: Performed By: #### C BC #### [facility] [address] [place] [address] Dr. Darrick Cao Monocytes/100 WBC (Bld) 8.7 % Normal 1.7-12.0 [facility] Comment on above: Performed By: #### C BC #### [facility] [address] [place] [address] Dr. Darrick Cao NEUT # 7.5 103/ul Critically high 1.4-6.5 [facility] Comment on above: Performed By: #### C BC #### [facility] [address] [place] [address] Dr. Darrick Cao Neutrophils/100 WBC (Bld) 73.8 % Normal 43.0-75.0 [facility] Comment on above: Performed By: #### C BC #### [facility] [address] [place] [address] Dr. Darrick Cao Platelet mean volume (Bld) [Entitic vol] 9.3 fL Critically low 9.5-13.5 [facility] Comment on above: Performed By: #### C BC #### [facility] [address] [place] [address] Dr. Darrick Cao PLT 345 103/ul Normal 150-450 [facility] Comment on above: Performed By: #### C BC #### [facility] [address] [place] [address] Dr. Darrick Cao RBC 4.58 106/ul Normal 4.20-5.40 [facility] Comment on above: Performed By: #### C BC #### [facility] [address] [place] [address] Dr. Darrick Cao WBC 10.1 103/ul Normal 4.0-11.0 [facility] Comment on above: Performed By: #### C BC #### [facility] [address] [place] [address] Dr. Darrick Cao CRPon 04-22-2022 CRP 5.2 mg/dL Critically high <=1.0 [facility] Comment on above: Performed By: #### B MP, CRP ####[facility] [id number] [place], [place] [id number]. Darrick Cao CULTURE BLOODon 04-22-2022 Microscopic examination of blood, culture Culture Observations: NO GROWTH AT 5 DAYS. Normal [facility] Comment on above: Performed By: #### B LDCX2 #### [facility] [address] [address] [address] Darrick Cao Microscopic examination of blood, culture Culture Observations: NO GROWTH AT 5 DAYS. Normal [facility] Comment on above: Performed By: #### B LDCX1 #### [facility] [address] [address] [address] Darrick Ca[facility]01 SARS-CoV-2 (COVID-19) RNA ALEKSANDR+probe Ql (Unsp spec) Not detected Normal NOT DETECTED [facility] Comment on above: Result Comment: When [...] for this test is supported by the [place] of [employer] and Human Service's declaration that [...] used). Performed By: #### P OCGLUC #### [facility] Laboratory [address] [address] [address] Darrick Cao LACTATE/LACTIC ACIDon 2021 Lactate [Moles/Vol] 1.3 mmol/L Normal 0.4-1.9 [facility] Comment on above: Performed By: #### P OCGLUC #### [facility] [address] [address] [address] Darrick Cao POINT OF CARE GLUCOSEon 04-01 Glucose [Mass/Vol] 96 mg/dL Normal 74-106 [facility] Comment on above: Performed By: #### P OCGLUC #### [facility] [address] [address] [address] Darrick Cao PROF CHEM 8 (BAS METB)on Anion gap [Moles/Vol] 12.3 mmol/L Normal [facility] Comment on above: Performed By: #### B MP, CRP ####[facility] [address] [address]Dr. Darrick Cao Calcium [Mass/Vol] 9.2 mg/dL Normal 8.5-10.1 [facility] Comment on above: Performed By: #### B MP, CRP ####[facility] [address] [id number]. Darrick Cao Chloride [Moles/Vol] 104 mmol/L Normal 98-107 [facility] Comment on above: Performed By: #### B MP, CRP ####[facility] [address] [id number]. Darrick Cao CO2 [Moles/Vol] 26.4 mmol/L Normal 21.0-32.0 [facility] Comment on above: Performed By: #### B MP, CRP ####[facility] [address] [id number]. Darrick Cao Creatinine [Mass/Vol] 1.19 mg/dL Critically high 0.55-1.02 [facility] Comment on above: Performed By: #### B MP, CRP ####[facility] [address] [id number]. Darrick Cao EGFR-AF DOMINICAN 56 mL/min/1.73m2 Critically low >=60 [facility] Comment on above: Performed By: #### B MP, CRP ####[facility] [address] [place], [place] [address]Rc. Darrick Cao EGFR-NON AF DOMINICAN 46 mL/min/1.73m2 Critically low >=60 [facility] Comment on above: Performed By: #### B MP, CRP ####[facility] [address] [id number]. Darrcik Cao Glucose [Mass/Vol] 124 mg/dL Critically high 74-106 [facility] Comment on above: Performed By: #### B MP, CRP ####[facility] [address] [id number]. Darrick Cao Potassium [Moles/Vol] 4.7 mmol/L Normal 3.5-5.1 [facility] Comment on above: Performed By: #### B MP, CRP ####[facility] [address] [id number]. Darrick Cao Sodium [Moles/Vol] 138 mmol/L Normal 136-145 [facility] Comment on above: Performed By: #### B MP, CRP ####[facility] [address] [id number]. Darrick Cao Urea nitrogen [Mass/Vol] 21.0 mg/dL Critically high 7.0-18.0 [facility] Comment on above: Performed By: #### B MP, CRP ####[facility] [address] [id number]. Darrick Cao Urea nitrogen/Creatinine [Mass ratio] 17.6 mg/mg Normal [facility] Comment on above: Performed By: #### B MP, CRP ####[facility] [address] [id number]. Darrick Cao SED RATE [facility] 2021 SED RATE 64 mm/hr Critically high <=30 [facility] Comment on above: Performed By: #### P OCGLUC #### [facility] [address] [place], [place] [address] ANKLE LT WO [...] by: SHAWNEE KELLY Date: 2022-03-11 10:18 Normal [facility] [employer] Quick Testingon 2020 Result Negative [facility] Other Operative Reporton Operative Report MR#: [id number] [facility] Pt. Name: Nicol Knowles Room #: 0C Discharge Date: Birthdate: 1960 OPERATIVE REPORT DATE OF SURGERY: 12/16/2020 SURGEON: David Lr M.D. PREOPERATIVE DIAGNOSIS: Trigger digits, right long finger and thumb. POSTOPERATIVE DIAGNOSIS: Trigger digits, right long finger and thumb. PROCEDURE: A1 leigha release, right long finger and thumb. PIPE INSULATOR HELPER: Hay Mast M.D. ANESTHESIA: MAC. INDICATION FOR [...] Lr M.D. Date Trans: 12/16/2020 09:13 A/braxton [id number] cc: Waqas Pierce M.D. [address] [place] [id number] [address] [facility] POC GLUCOSE LABon 12-16-2020 Glucose [Mass/Vol] 103 mg/dL High 70-100 [facility] Comment on above: Performed By: #### 8 5499 #### [facility] [address] Vital Signs Date Time Vital Sign Value Performing Clinician Facility 08-04-2024 10:48-0500 Body height 170.18 cm [facility] 08-04-2024 10:48-0500 Body mass index (BMI) [Ratio] 44.8 kg/m2 [facility] 08-04-2024 10:48-0500 Body weight 129.72 kg [facility] 08-04-2024 10:48-0500 Diastolic blood pressure 84 mm[Hg] [facility] 08-04-2024 10:48-0500 Heart rate 82 /min [facility] 08-04-2024 10:48-0500 Systolic blood pressure 128 mm[Hg] [facility] 06-19-2024 12:54-0400 Body mass index (BMI) [Ratio] 47.9 kg/m2 [facility] 06-19-2024 11:16-0400 Body height 170.18 cm [facility] 06-19-2024 11:16-0400 Body weight 129 kg [facility] 06-16-2024 09:58-0400 Body height 170.18 cm [facility] 06-16-2024 09:58-0400 Body mass index (BMI) [Ratio] 44.9 kg/m2 [facility] 06-16-2024 09:58-0400 Body weight 130.18 kg [facility] 06-16-2024 09:58-0400 Diastolic blood pressure 75 mm[Hg] [facility] 06-16-2024 09:58-0400 Heart rate 83 /min [facility] 06-16-2024 09:58-0400 Systolic blood pressure 114 mm[Hg] [facility] 05-23-2024 10:46-0400 Body mass index (BMI) [Ratio] 47.9 kg/m2 [facility] 05-23-2024 09:49-0400 Body height 170.18 cm [facility] 05-23-2024 09:49-0400 Body weight 127.45 kg [facility] 02-21-2024 10:03-0400 Body height 170.18 cm MD Waqas Pierce Work Phone: [facility] 02-21-2024 10:03-0400 Body mass index (BMI) [Ratio] 42.3 kg/m2 MD Waqas Pierce Work Phone: [facility] 02-21-2024 10:03-0400 Body weight 122.49 kg MD Waqas Pierce Work Phone: [facility] 02-21-2024 10:03-0400 Diastolic blood pressure 88 mm[Hg] MD Waqas Pierce Work Phone: [facility] 02-21-2024 10:03-0400 Heart rate 85 /min MD Waqas Pierce Work Phone: [facility] 02-21-2024 10:03-0400 Respiratory rate 18 /min MD Waqas Pierce Work Phone: [facility] 02-21-2024 10:03-0400 SaO2% (BldA) [Mass fraction] 97 % MD Waqas Pierce Work Phone: [facility] 02-21-2024 10:03-0400 Systolic blood pressure 142 mm[Hg] MD Waqas Pierce Work Phone: [facility] 01-15-2024 10:50-0400 Body height 170.18 cm [facility] 01-15-2024 10:50-0400 Body mass index (BMI) [Ratio] 47.9 kg/m2 [facility] 01-15-2024 10:50-0400 Body weight 138.88 kg [facility] 01-10-2024 09:49-0400 Body mass index (BMI) [Ratio] 47.9 kg/m2 MD Waqas Pierce Work Phone: [facility] 01-10-2024 08:37-0400 Body height 170.18 cm MD Waqas Pierce Work Phone: [facility] 01-10-2024 08:37-0400 Body weight 117.02 kg MD Waqas Pierce Work Phone: [facility] 01-03-2024 10:52-0400 Body height 170.18 cm MD Waqas Pierce Work Phone: [facility] 01-03-2024 10:52-0400 Body mass index (BMI) [Ratio] 39.8 kg/m2 MD Waqas Pierce Work Phone: [facility] 01-03-2024 10:52-0400 Body weight 115.41 kg MD Waqas Pierce Work Phone: [facility] 01-03-2024 10:52-0400 Diastolic blood pressure 89 mm[Hg] MD Waqas Pierce Work Phone: [facility] 01-03-2024 10:52-0400 Heart rate 87 /min MD Waqas Pierce Work Phone: [facility] 01-03-2024 10:52-0400 Respiratory rate 18 /min MD Waqas Pierce Work Phone: [facility] 01-03-2024 10:52-0400 SaO2% (BldA) [Mass fraction] 99 % MD Waqas Pierce Work Phone: [facility] 01-03-2024 10:52-0400 Systolic blood pressure 128 mm[Hg] MD Waqas Pierce Work Phone: [facility] 12-10-2023 11:39-0400 Body mass index (BMI) [Ratio] 47.9 kg/m2 MD Waqas Pierce Work Phone: [facility] 12-10-2023 10:57-0400 Body height 170.18 cm MD Waqas Pierce Work Phone: [facility] 12-10-2023 10:57-0400 Body weight 117.02 kg MD Waqas Pierce Work Phone: [facility] 11-22-2023 10:59-0500 Body height 170.18 cm [facility] 11-22-2023 10:59-0500 Body mass index (BMI) [Ratio] 41.1 kg/m2 [facility] 11-22-2023 10:59-0500 Body weight 119.01 kg [facility] 11-22-2023 10:59-0500 Diastolic blood pressure 84 mm[Hg] [facility] 11-22-2023 10:59-0500 Heart rate 72 /min [facility] 11-22-2023 10:59-0500 Respiratory rate 18 /min [facility] 11-22-2023 10:59-0500 SaO2% (BldA) [Mass fraction] 99 % [facility] 11-22-2023 10:59-0500 Systolic blood pressure 132 mm[Hg] [facility] 11-21-2023 09:48-0500 Body height 170.18 cm [facility] 11-21-2023 09:48-0500 Body mass index (BMI) [Ratio] 40.7 kg/m2 [facility] 11-21-2023 09:48-0500 Body temperature 98.2 [degF] [facility] 11-21-2023 09:48-0500 Body weight 117.99 kg [facility] 11-21-2023 09:48-0500 Diastolic blood pressure 82 mm[Hg] [facility] 11-21-2023 09:48-0500 Heart rate 105 /min [facility] 11-21-2023 09:48-0500 Systolic blood pressure 131 mm[Hg] [facility] 11-19-2023 09:52-0500 Body height 170.18 cm [facility] 11-19-2023 09:52-0500 Body mass index (BMI) [Ratio] 40.8 kg/m2 [facility] 11-19-2023 09:52-0500 Body weight 118.38 kg [facility] 11-01-2023 11:15-0500 Body height 170.18 cm Waqas Pierce Other [facility] 11-01-2023 11:15-0500 Body mass index (BMI) [Ratio] 40.75 kg/m2 Waqas Pierce Other [facility] Other 11-01-2023 11:15-0500 Body weight 118.03 kg Waqas Pierce Other [facility] Other 11-01-2023 11:15-0500 Body weight 118.02 kg [facility] 11-01-2023 11:15-0500 Diastolic blood pressure 87 mm[Hg] Waqas Pierce Other [facility] 11-01-2023 11:15-0500 Systolic blood pressure 127 mm[Hg] Waqas Pierce Other [facility] 10-15-2023 10:00-0500 Body height 170.18 cm Grecia Fitt Other [facility] 10-15-2023 10:00-0500 Body mass index (BMI) [Ratio] 40.08 kg/m2 Grecia Fitt Other [facility] Other 10-15-2023 10:00-0500 Body weight 116.08 kg Grecia Fitt Other [facility] Other 10-15-2023 10:00-0500 Body weight 116.07 kg [facility] 09-18-2023 11:00-0500 Body height 170.18 cm Rolando Jasmin Other [facility] 09-18-2023 11:00-0500 Body mass index (BMI) [Ratio] 40.45 kg/m2 Rolando Jasmin Other [facility] Other 09-18-2023 11:00-0500 Body weight 117.16 kg Rolandotimothy Castellanos Other [facility] 09-18-2023 11:00-0500 Diastolic blood pressure 80 mm[Hg] Rolando Castellanos Other [facility] 09-18-2023 11:00-0500 Respiratory rate 18 /min Rolando Jasmin Other [facility] Other 09-18-2023 11:00-0500 SaO2% (BldA) [Mass fraction] 98 % Rolando Castellanos Other [employer] [facility] [employer] Other 09-18-2023 11:00-0500 Systolic blood pressure 115 mm[Hg] Rolando Castellanos Other [facility] 09-17-2023 10:45-0500 Body height 170.18 cm Grecia Fitt Other [facility] 09-17-2023 10:45-0500 Body mass index (BMI) [Ratio] 40.65 kg/m2 Grecia Fitt Other [facility] Other 09-17-2023 10:45-0500 Body weight 117.75 kg Grecia Fitt Other [facility] 09-03-2023 12:45-0500 Diastolic blood pressure 60 mm[Hg] MD Waqas Pierce Work Phone: [facility] 09-03-2023 12:45-0500 Heart rate 70 /min MD Waqas Pierce Work Phone: [facility] 09-03-2023 12:45-0500 Inhaled oxygen flow rate 1 L/min MD Waqas Pierce Work Phone: [facility] 09-03-2023 12:45-0500 Respiratory rate 16 /min MD Waqas iPerce Work Phone: [facility] 09-03-2023 12:45-0500 SaO2% (BldA) [Mass fraction] 97 % MD Waqas Pierce Work Phone: [facility] 09-03-2023 12:45-0500 Systolic blood pressure 132 mm[Hg] MD Waqas Pierce Work Phone: [facility] 09-03-2023 10:21-0500 Body temperature 98.4 [degF] MD Waqas Pierce Work Phone: [facility] 09-03-2023 07:14-0500 Body height 172.72 cm MD Waqas Pierce Work Phone: [facility] 09-03-2023 07:14-0500 Body mass index (BMI) [Ratio] 39.5 kg/m2 MD Waqas Pierce Work Phone: [facility] 09-03-2023 07:14-0500 Body weight 118 kg MD Waqas Pierce Work Phone: [facility] 08-21-2023 14:30-0500 Body height 170.18 cm Waqas Pierce Other [facility] [employer] Other 08-21-2023 14:30-0500 Body mass index (BMI) [Ratio] 39.46 kg/m2 Waqas Pierce Other [facility] Other 08-21-2023 14:30-0500 Body weight 114.31 kg Waqas Pierce Other [facility] Other 08-21-2023 14:30-0500 Diastolic blood pressure 84 mm[Hg] Waqas Pierce Other [facility] Other 08-21-2023 14:30-0500 Systolic blood pressure 138 mm[Hg] Waqas Pierce Other [facility] Other 08-13-2023 10:45-0500 Body height 170.18 cm Grecia Fitt Other [facility] Other 08-13-2023 10:45-0500 Body mass index (BMI) [Ratio] 41.22 kg/m2 Grecia Fitt Other [facility] Other 08-13-2023 10:45-0500 Body weight 119.39 kg Grecia Fitt Other [facility] Other 07-26-2023 11:30-0400 Body height 170.18 cm Rolandotimothy Castellanos Other [facility] Other 07-26-2023 11:30-0400 Body mass index (BMI) [Ratio] 41.86 kg/m2 Rolandotimothy Castellanos Other [facility] Other 07-26-2023 11:30-0400 Body weight 121.25 kg Rolandotimothy Castellanos Other [facility] Other 07-26-2023 11:30-0400 Diastolic blood pressure 77 mm[Hg] Rolando Castellanos Other [facility] Other 07-26-2023 11:30-0400 Respiratory rate 18 /min Rolando Castellanos Other [facility] Other 07-26-2023 11:30-0400 SaO2% (BldA) [Mass fraction] 98 % Rolando Castellanos Other [facility] Other 07-26-2023 11:30-0400 Systolic blood pressure 121 mm[Hg] Rolando Castellanos Other [facility] Other 07-23-2023 10:45-0400 Body height 170.18 cm Grecia Fitt Other [facility] Other 07-23-2023 10:45-0400 Body mass index (BMI) [Ratio] 41.78 kg/m2 Grecia Fitt Other [facility] Other 07-23-2023 10:45-0400 Body weight 121.02 kg Grecia Fitt Other [facility] Other 06-27-2023 15:15-0400 Body height 170.18 cm David Atlantic II Other [facility] Other 06-27-2023 15:15-0400 Body mass index (BMI) [Ratio] 41.97 kg/m2 David Atlantic II Other [facility] Other 06-27-2023 15:15-0400 Body weight 121.56 kg David Atlantic II Other [facility] Other 06-18-2023 11:30-0400 Body height 170.18 cm Grecia Fitt Other [facility] Other 06-18-2023 11:30-0400 Body mass index (BMI) [Ratio] 42.52 kg/m2 Grecia Fitt Other [facility] Other 06-18-2023 11:30-0400 Body weight 123.15 kg Grecia Carrera Other [facility] Other 06-14-2023 10:00-0400 Body height 170.18 cm Rolando Reyesdiff Other [facility] Other 06-14-2023 10:00-0400 Body mass index (BMI) [Ratio] 42.89 kg/m2 Rolando Reyesdiff Other [facility] Other 06-14-2023 10:00-0400 Body weight 124.24 kg Rolando Reyesdiff Other [facility] Other 06-14-2023 10:00-0400 Diastolic blood pressure 87 mm[Hg] Rolandotimothy Reyesdiff Other [facility] Other 06-14-2023 10:00-0400 Respiratory rate 18 /min Rolando Reyesdiff Other [facility] Other 06-14-2023 10:00-0400 SaO2% (BldA) [Mass fraction] 100 % Rolando Jasmin Other [facility] Other 06-14-2023 10:00-0400 Systolic blood pressure 124 mm[Hg] Rolando Castellanos Other [facility] Other 06-11-2023 12:45-0400 Body height 170.18 cm Waqas Pierce Other [facility] Other 06-11-2023 12:45-0400 Body mass index (BMI) [Ratio] 42.41 kg/m2 Waqas Pierce Other [facility] Other 06-11-2023 12:45-0400 Body weight 122.83 kg Waqas Pierce Other [facility] Other 06-11-2023 12:45-0400 Diastolic blood pressure 76 mm[Hg] Waqas Pierce Other [facility] Other 06-11-2023 12:45-0400 Respiratory rate 12 /min Waqas Pierce Other [facility] Other 06-11-2023 12:45-0400 Systolic blood pressure 124 mm[Hg] Waqas Pierce Other [facility] Other 05-14-2023 10:00-0400 Body height 170.18 cm Grecia Fitt Other [facility] Other 05-14-2023 10:00-0400 Body mass index (BMI) [Ratio] 43.05 kg/m2 Grecia Fitt Other [facility] Other 05-14-2023 10:00-0400 Body weight 124.69 kg Grecia Fitt Other [facility] Other 04-16-2023 10:00-0400 Body height 170.18 cm Grecia Fitt Other [facility] Other 04-16-2023 10:00-0400 Body mass index (BMI) [Ratio] 43.94 kg/m2 Grecia Fitt Other [facility] Other 04-16-2023 10:00-0400 Body weight 127.28 kg Grecia Fitt Other [facility] Other 01-11-2023 11:00-0400 Body height 170.18 cm Grecia Fitt Other [facility] Other 01-11-2023 11:00-0400 Body mass index (BMI) [Ratio] 47.37 kg/m2 Grecia Fitt Other [facility] Other 01-11-2023 11:00-0400 Body weight 137.21 kg Grecia Fitt Other [facility] Other 11-16-2022 11:45-0500 Body height 170.18 cm Rolando Castellanos Other [facility] Other 11-16-2022 11:45-0500 Body mass index (BMI) [Ratio] 47 kg/m2 Rolando Castellanos Other [facility] Other 11-16-2022 11:45-0500 Body weight 136.13 kg Rolando Castellanos Other [facility] Other 11-16-2022 11:45-0500 Diastolic blood pressure 85 mm[Hg] Rolando Castellanos Other [facility] Other 11-16-2022 11:45-0500 Respiratory rate 18 /min Rolando Castellanos Other [facility] Other 11-16-2022 11:45-0500 SaO2% (BldA) [Mass fraction] 97 % Rolando Castellanos Other [facility] Other 11-16-2022 11:45-0500 Systolic blood pressure 114 mm[Hg] Rolando Castellanos Other [facility] Other 11-14-2022 09:15-0500 Body height 170.18 cm Grecia Carrera Other [facility] Other 11-08-2022 14:57-0500 Blood Pressure Location [facility] 11-08-2022 14:57-0500 Diastolic blood pressure 74 mm[Hg] Efrain NILL [facility] 11-08-2022 14:57-0500 Heart rate 80 /min [employer] [facility] 11-08-2022 14:57-0500 Respiratory rate 16 /min [employer] [facility] [place] 11-08-2022 14:57-0500 Systolic blood pressure 118 mm[Hg] Efrain NILL [employer] [facility] 10-23-2022 10:30-0500 Body height 170.18 cm Waqas Pierce Other [facility] Other 10-23-2022 10:30-0500 Body mass index (BMI) [Ratio] 46.04 kg/m2 Waqas Pierce Other [facility] Other 10-23-2022 10:30-0500 Body weight 133.36 kg Waqas Pierce Other [facility] Other 10-23-2022 10:30-0500 Diastolic blood pressure 88 mm[Hg] Waqas Pierce Other [facility] Other 10-23-2022 10:30-0500 Systolic blood pressure 148 mm[Hg] Waqas Pierce Other [facility] Other 10-13-2022 10:15-0500 Body height 170.18 cm Rachel Missler Other [facility] Other 10-13-2022 10:15-0500 Body mass index (BMI) [Ratio] 45.89 kg/m2 Rachel Missler Other [facility] Other 10-13-2022 10:15-0500 Body weight 132.9 kg Rachel Missler Other [facility] Other 10-13-2022 10:15-0500 Diastolic blood pressure 89 mm[Hg] Rachel Missler Other [facility] Other 10-13-2022 10:15-0500 Respiratory rate 18 /min Rachel Missler Other [facility] Other 10-13-2022 10:15-0500 SaO2% (BldA) [Mass fraction] 96 % Rachel Missler Other [facility] Other 10-13-2022 10:15-0500 Systolic blood pressure 138 mm[Hg] Rachel Missler Other [facility] Other 09-06-2022 16:00-0500 Body height 170.18 cm David Bartolo II Other [facility] Other 09-06-2022 16:00-0500 Body mass index (BMI) [Ratio] 45.57 kg/m2 David Atlantic II Other [facility] Other 09-06-2022 16:00-0500 Body weight 132 kg David Atlantic II Other [facility] Other 07-25-2021 18:45-0400 Body height 170.18 cm Mallory Yuen Other [facility] Other 07-25-2021 18:45-0400 Body mass index (BMI) [Ratio] 42.91 kg/m2 Mallory Yuen Other [facility] Other 07-25-2021 18:45-0400 Body temperature 98.6 [degF] Mallory Yuen Other [facility] Other 07-25-2021 18:45-0400 Body weight 124.29 kg Mallory Yuen Other [facility] Other 07-25-2021 18:45-0400 Respiratory rate 18 /min Mallory Yuen Other [facility] Other 07-25-2021 18:45-0400 SaO2% (BldA) [Mass fraction] 96 % Mallory Yuen Other [facility] Other Encounters Encounter Date Encounter Type Care Provider Facility Start: 08-27-2024 End: 08-27-2024 ambulatory David Mcfarland II Facility:[facility] Start: 08-18-2024 End: 08-18-2024 ambulatory Angel Hill MD Facility:[facility] Start: 08-04-2024 End: 08-04-2024 ambulatory [facility] Work Phone: Start: 08-04-2024 End: 08-04-2024 Patient encounter procedure [facility] Work Phone: Start: 07-25-2024 End: 07-25-2024 ambulatory [facility] Start: 07-15-2024 Non-patient / Non-visit [facility] Work Phone: Start: 06-19-2024 End: 06-19-2024 ambulatory [facility] Work Phone: Start: 06-19-2024 End: 06-19-2024 Patient encounter procedure [facility] Work Phone: Start: 06-17-2024 Non-patient / Non-visit [facility] Work Phone: Start: 06-16-2024 Patient encounter procedure [facility] Start: 06-16-2024 End: 06-16-2024 ambulatory [facility] Work Phone: Start: 06-16-2024 End: 06-16-2024 Patient encounter procedure [facility] Work Phone: Start: 05-23-2024 End: 05-23-2024 ambulatory [facility] Work Phone: Start: 05-23-2024 End: 05-23-2024 Patient encounter procedure [facility] Work Phone: Start: 02-21-2024 End: 02-21-2024 ambulatory MD Waqas Piecre Work Phone: [facility] Work Phone: Start: 02-21-2024 End: 02-21-2024 Patient encounter procedure MD Waqas Pierce Work Phone: [facility] Work Phone: Start: 01-15-2024 End: 01-15-2024 ambulatory NON STAFF [facility] Work Phone: Start: 01-15-2024 End: 01-15-2024 Patient encounter procedure [facility] Work Phone: Start: 01-11-2024 Non-patient / Non-visit [facility] Work Phone: Start: 01-10-2024 End: 01-10-2024 ambulatory MD Waqas Pierce Work Phone: [facility] Work Phone: Start: 01-10-2024 End: 01-10-2024 Patient encounter procedure MD Waqas Pierce Work Phone: [facility] Work Phone: Start: 01-03-2024 End: 01-03-2024 ambulatory MD Waqas Pierce Work Phone: [facility] Work Phone: Start: 01-03-2024 End: 01-03-2024 Patient encounter procedure MD Waqas Pierce Work Phone: [facility] Work Phone: Start: 12-26-2023 End: 12-26-2023 ambulatory MD Waqas Pierce Work Phone: [facility] Work Phone: Start: 12-26-2023 End: 12-26-2023 Patient encounter procedure MD Waqas Pierce Work Phone: [facility] Work Phone: Start: 12-10-2023 End: 12-10-2023 Patient encounter procedure MD Waqas Pierce Work Phone: [facility] Work Phone: Start: 12-04-2023 Registered Recurring MD Waqas Pierce Work Phone: [facility] Start: 11-28-2023 End: 11-28-2023 Patient encounter procedure MD Waqas Pierce Work Phone: [facility] Work Phone: Start: 11-28-2023 End: 11-28-2023 Patient encounter procedure MD Waqas Pierce Work Phone: [facility] Start: 11-28-2023 End: 11-28-2023 ambulatory David Duy Mcfarland II Facility:[facility] Start: 11-22-2023 End: 11-22-2023 ambulatory NON STAFF [facility] Work Phone: Start: 11-22-2023 End: 11-22-2023 Patient encounter procedure [facility] Work Phone: Start: 11-21-2023 End: 11-21-2023 ambulatory NON STAFF [facility] Work Phone: Start: 11-21-2023 End: 11-21-2023 Patient encounter procedure [facility] Work Phone: Start: 11-20-2023 Registered Recurring MD Waqas Pierce Work Phone: [facility] Start: 11-19-2023 End: 11-19-2023 ambulatory NON STAFF [facility] Work Phone: Start: 11-19-2023 End: 11-19-2023 Patient encounter procedure [facility] Work Phone: Start: 11-01-2023 End: 11-01-2023 ambulatory Waqas Pierce Other [facility] Other Start: 11-01-2023 Office outpatient vi sit 15 minutes Waqas Pierce [facility] Start: 11-01-2023 End: 11-01-2023 Patient encounter procedure [facility] Start: 10-31-2023 End: 10-31-2023 ambulatory Waqas Pierce Other [facility] Other Start: 10-31-2023 Telephone encounter Waqas Pierce [facility] Start: 10-23-2023 Registered Recurring MD Waqas Pierce Work Phone: [facility] Start: 10-17-2023 Postop follow up vis it related to original px David Atlantic II [facility] Start: 10-17-2023 End: 10-17-2023 Patient encounter procedure [facility] Start: 10-17-2023 End: 10-17-2023 ambulatory NON STAFF [facility] Work Phone: Start: 10-15-2023 ([facility] RD FU) [facility] F/ [facility] [place] Grecia Carrera [facility] Start: 10-15-2023 Registered [facility] Work Phone: Start: 10-15-2023 End: 10-15-2023 ambulatory David Duy Rdzle II [facility] Other Start: 10-15-2023 End: 10-15-2023 Patient encounter procedure [facility] Work Phone: Start: 10-02-2023 End: 10-02-2023 ambulatory Rolando Castellanos Other [facility] Other Start: 10-02-2023 Telephone encounter Rolando dhillon [facility] Start: 09-19-2023 End: 09-19-2023 ambulatory David Mcfarland II Other [facility] Other Start: 09-19-2023 Postop follow up vis it related to original px Carrie Perea [facility] Start: 09-19-2023 Telephone encounter David Rdzle II [facility] Start: 09-19-2023 End: 09-19-2023 Patient encounter procedure [facility] Work Phone: Start: 09-18-2023 End: 09-18-2023 ambulatory Rolando Castellanos Other [facility] Other Start: 09-18-2023 Follow-up encounter Rolando dhillon [facility] Start: 09-18-2023 End: 09-18-2023 Patient encounter procedure [facility] Work Phone: Start: 09-17-2023 ([facility] RD FU) [facility] F/ [facility] [place] Grecia Carrera [facility] Start: 09-17-2023 End: 09-17-2023 ambulatory Grecia Carrera Other [facility] Other Start: 09-17-2023 End: 09-17-2023 Patient encounter procedure [facility] Work Phone: Start: 09-10-2023 End: 09-10-2023 ambulatory David Mcfarland II Other [facility] Other Start: 09-10-2023 Telephone encounter David Mcfarland II [facility] Start: 09-03-2023 End: 09-03-2023 Admission to same day surgery center MD Waqas Pierce Work Phone: [facility] [place] Start: 09-03-2023 End: 09-03-2023 ambulatory MD Waqas Pierce Work Phone: [facility] Work Phone: Start: 08-31-2023 (Prolonged) Prolonge d Services David Mcfarland II [facility] Start: 08-31-2023 Registered Recurring MD Waqas Pierce Work Phone: [facility] [place] Start: 08-31-2023 End: 08-31-2023 ambulatory David Mcfarland II [facility] Other Start: 08-30-2023 End: 08-30-2023 ambulatory David Mcfarland II Other [facility] Other Start: 08-30-2023 Office outpatient vi sit 40 minutes David Mcfarland II [facility] Start: 08-28-2023 End: 08-28-2023 ambulatory MD Waqas Pierce Work Phone: [facility] Work Phone: Start: 08-28-2023 End: 08-28-2023 Patient encounter procedure MD Waqas Pierce Work Phone: [facility] Work Phone: Start: 08-28-2023 Registered Recurring [facility] Start: 08-21-2023 End: 08-21-2023 ambulatory Waqas Pierce Other [facility] Other Start: 08-21-2023 Encounter for other preprocedural examination Waqas Pierce [facility] Start: 08-21-2023 Office outpatient vi sit 25 minutes Waqas Pierce [facility] Start: 08-15-2023 End: 08-15-2023 ambulatory MD Waqas Pierce Work Phone: [facility] Work Phone: Start: 08-15-2023 End: 08-15-2023 Patient encounter procedure MD Waqas Pierce Work Phone: [facility] Start: 08-13-2023 Registered Recurring MD Waqas Pierce Work Phone: [facility] Work Phone: Start: 08-13-2023 ([facility] RD FU) [facility] F/ [facility] [place] Grecia Carrera [facility] Start: 08-13-2023 End: 08-13-2023 ambulatory Grecia Carrera Other [facility] Other Start: 08-06-2023 End: 08-06-2023 ambulatory David Mcfarland II Other [facility] Other Start: 08-06-2023 Telephone encounter David Mcfarland II [facility] Start: 08-01-2023 End: 08-01-2023 ambulatory Waqas Pierce Other [facility] Other Start: 08-01-2023 Telephone encounter Waqas Pierce [facility] Start: 07-31-2023 (Televisit) Televisit Waqas Pierce Christina [facility] Start: 07-31-2023 End: 07-31-2023 ambulatory Waqas Pierce Other [facility] Other Start: 07-26-2023 End: 07-26-2023 ambulatory Rolando Reyesdiff Other [facility] Other Start: 07-26-2023 Follow-up encounter Rolando Castellanos [facility] Start: 07-26-2023 Telephone encounter David Mcfarland II [facility] Start: 07-23-2023 ([facility] RD FU) [facility] F/ [facility] [place] Grecia Carrera [facility] Start: 07-23-2023 End: 07-23-2023 ambulatory Grecia Carrera Other [facility] Other Start: 07-09-2023 End: 07-09-2023 ambulatory Rolando Castellanos Other [facility] Other Start: 07-09-2023 Telephone encounter Rolando Vasquez [facility] Start: 06-27-2023 End: 06-27-2023 ambulatory David Mcfarland II Other [facility] Other Start: 06-27-2023 Office outpatient vi sit 25 minutes David Mcfarland II [facility] Start: 06-19-2023 End: 06-19-2023 ambulatory Waqas Pierce Other [facility] Other Start: 06-19-2023 Telephone encounter Waqas Kari [facility] Start: 06-18-2023 ([facility] RD FU) [facility] F/ [facility] [place] Grecia Carlt [facility] Start: 06-18-2023 End: 06-18-2023 ambulatory Grecia Henryt Other [facility] Other Start: 06-14-2023 End: 06-14-2023 ambulatory Rolando Castellanos Other [facility] Other Start: 06-14-2023 Follow-up encounter Rolando Reyesdienrike Vasquez [facility] Start: 06-11-2023 End: 06-11-2023 ambulatory Waqas Pierce Other [facility] Other Start: 06-11-2023 Encounter for genera l adult medical examination without abnormal findings Waqas Pierce [facility] Start: 06-11-2023 Periodic preventive med est patient 40-64yrs Waqas Pierce [facility] Start: 06-01-2023 End: 06-01-2023 ambulatory Waqas Pierce Other [facility] Other Start: 06-01-2023 Telephone encounter Waqas Pierce [facility] Start: 05-28-2023 End: 05-28-2023 ambulatory Waqas Pierce Other [facility] Other Start: 05-28-2023 Telephone encounter Waqas Pierce [facility] Start: 05-14-2023 ([facility] RD FU) [facility] F/ [facility] [place] Grecia Carlt [facility] Start: 05-14-2023 End: 05-14-2023 ambulatory Grecia Fitt Other [facility] Other Start: 04-16-2023 ([facility] RD FU) [facility] F/ [facility] [place] Grecia Carlt [facility] Start: 04-16-2023 End: 04-16-2023 ambulatory Grecia Fitt Other [facility] Other Start: 03-21-2023 End: 03-21-2023 ambulatory Waqas Pierce Other [facility] Other Start: 03-21-2023 Telephone encounter Waqas Pierce [facility] Start: 02-22-2023 ambulatory MER MAYBERRY . Facil ity:H1 Start: 02-13-2023 End: 02-14-2023 ambulatory AMY Iverson [facility] Facility:H1 Start: 01-31-2023 End: 01-31-2023 ambulatory Waqas Pierce Other [facility] Other Start: 01-31-2023 Telephone encounter Waqas Pierce [facility] Start: 01-30-2023 End: 01-31-2023 ambulatory AMY Iverson [facility] Facility:H1 Start: 01-19-2023 End: 01-20-[address] ROLANDO CASTELLANOS Facility:H1 Start: 01-11-2023 ([facility] WMNI) WMN Init ial Provider Grecia Carrera [facility] Start: 01-11-2023 End: 01-11-2023 ambulatory Grecia Carrera Other [facility] Other Start: 01-09-2023 End: 01-10-2023 ambulatory AMY KASPER Facility:H1 Start: 12-25-2022 End: 12-25-2022 ambulatory Junior Mcgowan Other [facility] Other Start: 12-25-2022 Telephone encounter Junior DARNELL [facility] Start: 12-22-2022 End: 12-23-2022 ambulatory AMY Kishor [facility] Facility:H1 Start: 12-18-2022 End: 12-18-2022 ambulatory Junior Mcgowan Other [facility] Other Start: 12-18-2022 Telephone encounter Junior DARNELL [facility] Start: 12-15-2022 End: 12-15-2022 ambulatory Waqas Pierce Other [facility] Other Start: 12-15-2022 Telephone encounter Waqas Pierce [facility] Start: 12-12-2022 Telephone encounter Rolando Vasquez [facility] Start: 12-12-2022 End: 12-13-[address] WAQAS PIERCE [facility] Other Start: 12-06-2022 Telephone encounter Waqas Pierce [facility] Start: 12-06-2022 End: 12-07-2022 ambulatory Efrain CORTES [facility] Other Start: 12-01-2022 End: 12-02-[address] WAQAS PIERCE Facility: Start: 11-20-2022 End: 11-20-2022 ambulatory Rolando Castellanos Other [facility] Other Start: 11-20-2022 Telephone encounter Rolando Vasquez [facility] Start: 11-17-2022 Telephone encounter Waqas Pierce [facility] Start: 11-17-2022 End: 11-18-[address] WAQAS PIERCE [facility] Other Start: 11-16-2022 End: 11-16-2022 ambulatory Rolando Castellanos Other [facility] Other Start: 11-16-2022 Follow-up encounter Rolando Vas[facility] Start: 11-14-2022 End: 11-14-2022 ambulatory Grecia Carlt Other [facility] Other Start: 11-14-2022 IBT FOR OBESITY GROU P 2-10 30M Grecia Fitt [facility] Start: 11-13-2022 End: 11-13-2022 ambulatory Waqas Pierce Other [facility] Other Start: 11-13-2022 Telephone encounter Waqas Pierce [facility] Start: 11-08-2022 End: 11-09-2022 ambulatory Efrain Vaz SOPHIA Facility:[facility] Start: 11-08-2022 End: 11-08-2022 Patient encounter procedure Efrain Vaz SOPHIA General Surgery Nill/[facility] Start: 11-06-2022 End: 11-07-[address] WAQAS PIERCE Facility: Start: 11-05-2022 Encounter for gynecological examination (general) (routine) without abnormal findings DR FRIEDA LOCKE . [facility] Start: 11-03-2022 End: 11-04-[address] WAQAS PIERCE Facility:H1 Start: 10-30-2022 End: 10-31-[address] WAQAS PIERCE Facility: Start: 10-25-2022 End: 10-25-2022 ambulatory Waqas Pierce Other [facility] Other Start: 10-25-2022 Telephone encounter Waqas Pierce [facility] Start: 10-24-2022 End: 10-24-2022 ambulatory Rolando Castellanos Other [facility] Other Start: 10-24-2022 Telephone encounter Rolando Castellanos [facility] Start: 10-23-2022 Office outpatient vi sit 15 minutes Waqsa Pierce [facility] Start: 10-23-2022 Telephone encounter Waqas Pierce [facility] Start: 10-23-2022 End: 10-24-2022 ambulatory NON STAFF [facility] Work Phone: Start: 10-23-2022 End: 10-23-2022 Departed Referred [facility] [place] Work Phone: Start: 10-20-2022 End: 10-20-2022 ambulatory Waqas Pierce Other [facility] Other Start: 10-20-2022 Telephone encounter Waqas Pierce [facility] Start: 10-17-2022 End: 10-18-[address] WAQAS PIERCE Facility:H1 Start: 10-13-2022 End: 10-13-2022 ambulatory Rachel Vela Other [facility] Other Start: 10-13-2022 Nutrition therapy Rachel Vela [facility] Start: 10-13-2022 Telephone encounter Rachel Vela [facility] Start: 10-13-2022 Registered Recurring [facility] Work Phone: Start: 10-10-2022 End: 10-11-[address] WAQAS PIERCE Facility:H1 Start: 10-06-2022 End: 10-06-2022 ambulatory Waqas Pierce Other [facility] Other Start: 10-06-2022 Telephone encounter Waqas Pierce [facility] Start: 10-04-2022 (Procedure) Short Junior Mcgowan [facility] Start: 10-04-2022 End: 10-04-2022 ambulatory Junior Mcgowan Other [facility] Other Start: 10-03-2022 End: 10-04-[address] WAQAS PIERCE [facility] Other Start: 10-03-2022 Telephone encounter Junior [facility] [place] Start: 09-27-2022 End: 09-27-2022 ambulatory Junior Mcgowan Other [facility] Other Start: 09-27-2022 Telephone encounter Junior King [facility] Start: 09-19-2022 End: 09-20-[address] WAQAS PIERCE Facility:H1 Start: 09-11-2022 End: 09-12-[address] WAQAS PIERCE Facility:H1 Start: 09-06-2022 End: 09-06-2022 Patient encounter procedure [facility] Start: 09-06-2022 End: 09-06-2022 ambulatory NON STAFF [facility] Work Phone: Start: 09-06-2022 FQHC visit new patient David davalos AMAURI [facility] Start: 08-28-2022 End: 08-29-[address] WAQAS PIERCE Facility:H1 Start: 08-18-2022 Adult health examination Grecia Fitt Other [facility] Other Start: 08-18-2022 Gynecological examination normal Grecia Fitt Other [facility] Other Start: 08-18-2022 End: 08-19-[address] [...] Encounter for other preprocedural examination AMY KASPER [facility] Start: 04-24-[address] WAQAS PIERCE [...] Pre-procedure evalua tion check Grecia Carrera Other [facility] Other Start: 07-25-2021 Office outpatient vi sit 15 minutes Mallory Yuen [facility] Start: 06-23-2021 Office outpatient vi sit 25 minutes Junior Mcgowan [facility] [place] Start: 06-23-2021 Telephone encounter [facility] Start: 12-16-2020 End: 12-17-2020 ambulatory REFERRED SELF Facility:[facility] Procedures Date Procedure Procedure Detail Performing Clinician [...] MD Waqas Pierce Work Phone: Start: 08-28-2023 Urine culture MD Waqas Pierce Work Phone: Start: 08-15-2023 Plain X-ray of right hip MD Waqas Pierce Work Phone: Start: 10-23-2022 Urine culture Start: 09-06-2022 Plain X-ray of right hip Start: 04-24-2022 Excision of Left Tarsal, Open Approach DR WAQAS PIERCE Start: 04-24-2022 Insertion of Tissue Glass Cylinder Flanger into Left Foot Subcutaneous Tissue and Fascia, [...] Comment on above: procedure Start: 09-08-2020 Esophagogastroduodenoscopy fErain CORTES Start: 12-04-2016 Laboratory test result abnormal [...] Activity Detail Author Start: 09-03-2023 Hospital admission [facility] Start: 09-03-2023 End: 09-03-2023 [facility] Start: 09-03-2023 Physical therapy procedure [facility] Start: 08-28-2023 [facility] Start: 08-28-2023 Bacteria identified in Urine by Culture [facility] aPTT in Platelet poo r plasma by Coagulation assay [facility] Bacteria identified in Urine by Culture [facility] CT Chest WO and W contrast IV [facility] XR Chest 2 Views [facility] XR Chest 2 Views [facility] Immunizations Immunization Date Immunization Notes Care Provider Fa cility 09-28-2023 COVID-19 (PFIZER) [id number] 12Y and older MD Waqas Pierce Work Phone: [facility] 09-28-2023 influenza, injectabl e, quadrivalent, preservative free MD Waqas Pierce Work Phone: [facility] 08-31-2022 COVID-19 (Pfizer) Bivalent Booster, Age 12Y+ [facility] 08-31-2022 influenza virus vaccine, unspecified formulation Efrain CORTES [facility] 08-31-2022 influenza, injectabl e, quadrivalent, preservative free MD Waqas Pierce Work Phone: [facility] 08-31-2022 SARS-CoV-2 (COVID-19 ) [id number] Efrain CORTES [facility] 02-24-2022 COVID-19 (Pfizer); Translations: [COVID-19 (Pfizer)] MD Waqas Pierce Work Phone: [facility] 02-24-2022 COVID-19 Comirnaty (Pfizer) Tri-Sucrose 12+ MD Waqas Pierce Work Phone: [facility] 02-24-2022 SARS-CoV-2 mRNA (otktqabqyvg-rork-nzdhy se) vaccine Efrain NILSharan [facility] 11-20-2021 influenza, injectabl e, quadrivalent, preservative free MD Waqas Pierce Work Phone: [facility] 08-19-2021 COVID-19 (Pfizer) [facility] 08-19-2021 SARS-CoV-2 (COVID-19 ) mRNA BNT-162b2 vax Efrain SOPHIA [facility] 01-19-2021 COVID-19 (Pfizer) [facility] 01-19-2021 SARS-CoV-2 (COVID-19 ) mRNA BNT-162b2 vax Efrain NILL [facility] 12-31-2020 COVID-19 (Pfizer) [facility] 12-31-2020 SARS-CoV-2 (COVID-19 ) mRNA BNT-162b2 vax Efrain RABAGOL [facility] 06-25-2020 influenza virus vaccine, split virus (incl. purified surface antigen) Grecia Carrera Other [facility] Other 06-25-2020 influenza virus vaccine, unspecified formulation [facility] 06-25-2020 influenza, injectabl e, quadrivalent, preservative free MD Waqas Pierce Work Phone: [facility] 06-25-2020 pneumococcal polysaccharide vaccine, 23 valent Grecia Carrera Other [facility] 07-30-2019 influenza, injectabl e, quadrivalent, contains preservative MD Waqas Pierce Work Phone: [facility] 07-12-2018 influenza, injectabl e, quadrivalent, preservative free MD Waqas Pierce Work Phone: [facility] 11-15-2016 influenza, injectabl e, quadrivalent, preservative free MD Waqas Pierce Work Phone: [facility] Payers Date Payer Category Payer Private Health Insurance [id number] 2023 Private Health Insurance 2022 Self-pay [id number] 1962 Unknown [id number] 2.16.840.1.939138.3.579.2.647 1962 Unknown [id number] 2.16.840.1.813368.3.579.2.727 1962 Unknown [id number] 2.16.840.1.561758.3.579.2.727 1962 Unknown [id number] 2.16.840.1.290641.3.579.2.593 1962 Unknown [id number] 2.16.840.1.621327.3.579.2.593 1962 Unknown [id number] 2.16.840.1.429214.3.579.2.593 1962 Unknown [id number] 2.16.840.1.792895.3.579.2.593 1962 Unknown [id number] 2.16.840.1.966286.3.579.2.593 1962 Unknown [id number] 2.16.840.1.747907.3.579.2.593 1962 Unknown [id number] 2.16.840.1.366812.3.579.2.593 1962 Unknown [id number] 2.16.840.1.462189.3.579.2.593 1962 Unknown [id number] 2.16.840.1.037578.3.579.2.593 1962 Unknown [id number] 2.16.840.1.512199.3.579.2.593 1962 Unknown [id number] 2.16.840.1.692741.3.579.2.593 1962 Unknown [id number] 2.16.840.1.746948.3.579.2.593 1962 Unknown [id number] 2.16.840.1.722717.3.579.2.593 1962 Unknown [id number] 2.16.840.1.631272.3.579.2.593 1962 Unknown [id number] 2.16.840.1.226466.3.579.2.593 1962 Unknown [id number] 2.16.840.1.383869.3.579.2.593 1962 Unknown [id number] 2.16.840.1.197000.3.579.2.593 1962 Unknown [id number] 2.16.840.1.485132.3.579.2.593 1962 Unknown [id number] 2.16.840.1.543768.3.579.2.593 1962 Unknown [id number] 2.16.840.1.267905.3.579.2.593 1962 Unknown [id number] 2.16.840.1.201552.3.579.2.593 1962 Unknown [id number] 2.16.840.1.784228.3.579.2.593 1962 Unknown [id number] 2.16.840.1.159237.3.579.2.593 1962 Unknown [id number] 2.16.840.1.734297.3.579.2.593 1962 Unknown [id number] 2.16.840.1.213596.3.579.2.593 1962 Unknown [id number] 2.16.840.1.243853.3.579.2.593 1962 Unknown [id number] 2.16.840.1.433038.3.579.2.593 1962 Unknown [id number] 2.16.840.1.436537.3.579.2.593 1962 Unknown [id number] 2.16.840.1.479612.3.579.2.593 1962 Unknown [id number] 2.16.840.1.248854.3.579.2.593 1962 Unknown [id number] 2.16.840.1.174699.3.579.2.593 1962 Unknown [id number] 2.16.840.1.719243.3.579.2.593 1962 Unknown [id number] 2.16.840.1.210913.3.579.2.593 1962 Unknown [id number] 2.16.840.1.435526.3.579.2.593 1962 Unknown [id number] 2.16.840.1.891107.3.579.2.593 1962 Unknown [id number] 2.16.840.1.444918.3.579.2.593 1962 Unknown [id number] 2.16.840.1.021247.3.579.2.593 1962 Unknown [id number] 2.16.840.1.708342.3.579.2.593 1962 Unknown [id number] 2.16.840.1.147863.3.579.2.593 1962 Unknown [id number] 2.16.840.1.236606.3.579.2.593 1962 Unknown [id number] 2.16.840.1.888309.3.579.2.593 1962 Unknown [id number] 2.16.840.1.949948.3.579.2.593 1962 Unknown [id number] 2.16.840.1.288980.3.579.2.593 1962 Unknown [id number] 2.16.840.1.274672.3.579.2.196 1959 Unknown [id number] 2.16. 840.1.991716.19 1959 Unknown [id number] Medicare Medicare [id number] Unknown [id number] 2.16.840.1.573765.3.579.2.531 Worker's Compensation [id number] Worker's Compensation [facility] [id number] Social History Date Type Detail Facility Unknown if ever smoked [facility] Other Sex Assigned At [facility] Start: 1960 Sex Assigned At Female F [facility] Start: 11-08-2022 End: 01-03-2024 Tobacco smoking status Ex-smoker (finding) General Surgery Aragon Comment on above: smoked one year, souleymane t 30 years ago Tobacco smoking status Never Gener al Surgery [facility] Comment on above: smoked one year, souleymane t 30 years ago Medical Equipment Procedure Code Equipment Code Equipment Origin al Text Equipment Identifier Dates Arthroplasty, hip, total, anterior approach Acetabular shell [id number] FDA Start: 09-03-2023 Arthroplasty, hip, total, anterior approach Ceramic femoral head prosthesis ()[id number] FDA Start: 09-03-2023 Arthroplasty, hip, total, anterior approach Coated hip femur prosthesis, modular ()[id number] FDA Start: 09-03-2023 Arthroplasty, hip, total, anterior approach Non-constrained polyethylene acetabular liner ()[id number] FDA Start: 09-03-2023 Start: 02-13-2023 Goals Date Patient Goal Desired Activity /State Functional Status Date Assessment Result Facility 11-08-2022 Functional Status N/A General [facility] viky Hernandez Clinical Notes 06-23-2021 to 07-25-2024 Note Date & Type Note Facility 07-25-2024 Note Cardiology Follow Up Progress Note Chief Complaint: Follow up HPI: Nicol Smith is a 64 y.o. female who has a past medical history of Allergies, Fibromyalgia, Hyperlipidemia, Liver disease, Obesity, and Presence of artificial hip joint, left. that presents to cardiology for follow up. She had routine labs w/ lipid panel last month. C/o intermittent chest pain, which can occur with rest and with exertion, and does not seem to be worsened with exertion. She does say she has a hiatal hernia. She's SOB with very minimal exertion. Patient is following with hematology here at [facility] for anemia. No edema, orthopnea, or PND. No near syncope or syncope. Cardiology ROS: 10 point ROS is performed and is negative unless otherwise specified in HPI. Medications Current Outpatient Medications on File Prior to Visit Medication Sig Dispense Refill atorvastatin (Lipitor) 20 mg tablet atorvastatin 20 mg tablet TAKE 1 TABLET BY MOUTH DAILY ergocalciferol, vitamin D2, (VITAMIN D2 ORAL) Take by mouth. levothyroxine (Synthroid, Levoxyl) 50 mcg tablet TAKE 1 TABLET BY MOUTH IN THE MORNING ON AN EMPTY STOMACH magnesium oxide 400 mg magnesium capsule 1 capsule in the morning. metoprolol succinate XL (Toprol-XL) 25 mg 24 hr tablet TAKE 1 TABLET BY MOUTH ONCE DAILY 90 tablet 3 pantoprazole (ProtoNix) 40 mg EC tablet pantoprazole 40 mg tablet,delayed release TAKE 1 TABLET BY MOUTH DAILY aspirin 325 mg tablet in the morning. baclofen (Lioresal) 10 mg tablet baclofen 10 mg tablet TAKE 1 TABLET BY MOUTH TWICE DAILY NEEDED diclofenac (Voltaren) 75 mg EC tablet diclofenac sodium 75 mg tablet,delayed release TAKE 1 TABLET BY MOUTH TWICE DAILY HYDROcodone-acetaminophen ([place]) 5-325 mg tablet hydrocodone 5 mg-acetaminophen 325 mg tablet TAKE 1 TABLET BY MOUTH EVERY 4 TO 6 HOURS NEEDED FOR PAIN (Max OF EIGHT TABLETS in 24 HOURS) linezolid (Zyvox) 600 mg tablet linezolid 600 mg tablet TAKE 1 TABLET BY MOUTH TWICE DAILY omeprazole OTC (PriLOSEC OTC) 20 mg EC tablet in the morning. oxyCODONE (Roxicodone) 5 mg immediate release tablet Take 5 mg by mouth every 6 (six) hours if needed. tirzepatide (Mounjaro) 2.5 mg/0.5 mL pen injector as directed Subcutaneous No current facility-administered medications on file prior to visit. Allergies Duloxetine, Metformin, and Penicillins Physical Exam VITAL SIGNS: BP (!) 140/94 (BP Location: Right wrist, Patient Position: Sitting) Pulse 91 Ht 1.702 m (5' 7 ) Wt 129 kg (284 lb) SpO2 97% BMI 44.48 kg/m??? Constitutional: Well developed, Well nourished, No acute distress, Non-toxic appearance. HENT: Normocephalic, Atraumatic, Bilateral external ears have normal appearance, Nose appears normal, nares are patent. Eyes: PERRLA, EOMI, Conjunctiva normal, No discharge. Neck: Normal range of motion, No tenderness, Supple, No stridor. No cervical lymphadenopathy noted. Cardiovascular: Normal heart rate, Normal rhythm, No murmurs, No rubs, No gallops. Thorax & Lungs: Normal breath sounds, No respiratory distress, No wheezing, No chest tenderness to palpation. Abdomen: Bowel sounds normal, Soft, Nontender, No masses, No pulsatile masses. Skin: Warm, Dry, No erythema, No rash. Back: No tenderness, No CVA tenderness. Extremities: Intact distal pulses, No edema, No tenderness, No cyanosis, No clubbing. Musculoskeletal: Grossly normal strength in extremities Neurologic: Alert & oriented x 3, no gross focal neurological deficits Psychiatric: Affect normal, Judgment normal, Mood normal. EKG results: No results found for this or any previous visit (from the past 4464 hour(s)). Echo results: No echocardiogram results found for the past 12 months Radiology: No image results found. Assessment/Plan: Nicol Smith is a 64 y.o. female with Other chest pain Shortness of breath Diagnoses and all orders for this visit: Other chest pain - ECG 12 lead - Lexiscan Stress Myocardial Perfusion Imaging; Future - Transthoracic Echo (TTE) Complete; Future Shortness of breath - Lexiscan Stress Myocardial Perfusion Imaging; Future - Transthoracic Echo (TTE) Complete; Future LDL is at target. Continue current statin dose Bp is above target range. Patient states that BP is within normal range at home Patient instructed to check daily blood pressure at home 2 hours after taking medication. Patient is instructed to maintain daily blood pressure log. Patient is to contact cardiology if blood pressures above discuss target range. Patient voices understanding. Optimize medical management Aggressive risk factor modification Plan of care discussed with patient. All questions were answered. Patient voices understanding and is agreeable with current plan. Patient was educated on red flag symptoms. Strict return precautions were provided. Patient verbalizes understanding Follow-up in cardiology clinic in 3 months, or sooner as needed Anita Tafoya (more content not included)... [facility] 01-03-2024 Evaluation note Authored January 03, 2024 [...] given. 1. Prediabetes most recent A1c of 5.0-kxllt-jkxg treatment with long-term healthy lifestyle change, decreased [...] the gym and start with a personal care worker. She should consider pool therapy/ water therapy. She needs to try to keep her trigger foods out of the house. She is to try to find healthier desserts and she tends to like to have 1 after each meal. Lately her cravings for sweets have been decreased. She continues to work with our erisa attorney. She understands the need for preplanning, following the plate method, having healthy foods around, keeping unhealthy foods out of her house and eating healthy Whole Foods. She does not like to cook or prep. She understands that shopping, chopping and preplanning so that she can eat healthy foods is essential to her recovery. She will continue to work with our erisa attorney. We could consider Wellbutrin in the future [...] TSH with her PCP. Author Estephania Mao [facility] Authored February 21, 2024 10:30 am [...] given. 1. Prediabetes most recent A1c of 5.2-zkejk-avkj treatment with long-term healthy lifestyle change, decreased [...] the gym and start with a personal care worker. She should consider pool therapy/ water therapy. She needs to try to keep her trigger foods out of the house. She is to try to find healthier desserts and she tends to like to have 1 after each meal. Lately her cravings for sweets have been decreased. She continues to work with our erisa attorney. She understands the need for preplanning, following the plate method, having healthy foods around, keeping unhealthy foods out of her house and eating healthy Whole Foods. She does not like to cook or prep. She understands that shopping, chopping and preplanning so that she can eat healthy foods is essential to her recovery. She will continue to work with our erisa attorney. We could consider Wellbutrin in the future [...] lab work and TSH with her PCP. [facility] Work Phone: 1(384) 427-828904-04-2024 Evaluation note* Author Rolando Castellanos [facility] Authored January 03, 2024 11:3 9am [...] given. 1. Prediabetes most recent A1c of 5.7-nkffs-sfdg treatment with long-term healthy lifestyle change, decreased [...] the gym and start with a personal care worker. She should consider pool therapy/ water therapy. She needs to try to keep her trigger foods out of the house. She is to try to find healthier desserts and she tends to like to have 1 after each meal. Lately her cravings for sweets have been decreased. She continues to work with our erisa attorney. She understands the need for preplanning, following the plate method, having healthy foods around, keeping unhealthy foods out of her house and eating healthy Whole Foods. She does not like to cook or prep. She understands that shopping, chopping and preplanning so that she can eat healthy foods is essential to her recovery. She will continue to work with our erisa attorney. We could consider Wellbutrin in the future [...] TSH with her PCP. Author Rolando Castellanos [facility] Authored February 21, 2024 10:49 am [...] given. 1. Prediabetes most recent A1c of 5.2-qmifx-mcmh treatment with long-term healthy lifestyle change, decreased [...] the gym and start with a personal care worker. She should consider pool therapy/ water therapy. [...] to continue to work closely with our labels molder. She understands the need for preplanning, following the plate method, having healthy foods around, keeping unhealthy foods out of her house and eating healthy Whole Foods. She does not like to cook or prep. She understands that shopping, chopping and preplanning so that she can eat healthy foods is essential to her recovery. She will continue to work with our erisa attorney. We could consider Wellbutrin in the future [...] lab work and TSH with her PCP. [facility] Work Phone: 1([phone]) 512-124502-22-2024 Evaluation note* Author Rolando Castellanos [facility] Authored November 22, 2023 12:47pm Highest [...] given. 1. Prediabetes most recent A1c of 5.0-kqqpf-yari treatment with long-term healthy lifestyle change, decreased [...] house. She continues to work with our erisa attorney. She understands the need for preplanning, following the plate method, having healthy foods around, keeping unhealthy foods out of her house and eating healthy Whole Foods. She does not like to cook or prep. She understands that shopping, chopping and preplanning so that she can eat healthy foods is essential to her recovery. She will continue to work with our erisa attorney. We could consider Wellbutrin in the future [...] lab work and TSH with her PCP. [facility] Work Phone: 1(553) 834-589602-22-2024 Evaluation note* Author Rolando Castellanos [facility] Authored November 22, 2023 12:47pm Highest [...] given. 1. Prediabetes most recent A1c of 5.6-ijlys-trvk treatment with long-term healthy lifestyle change, decreased [...] house. She continues to work with our erisa attorney. She understands the need for preplanning, following the plate method, having healthy foods around, keeping unhealthy foods out of her house and eating healthy Whole Foods. She does not like to cook or prep. She understands that shopping, chopping and preplanning so that she can eat healthy foods is essential to her recovery. She will continue to work with our erisa attorney. We could consider Wellbutrin in the future [...] TSH with her PCP. Author Estephania Mao [facility] Authored January 03, 2024 11:1 8am [...] given. 1. Prediabetes most recent A1c of 5.8-dmdqu-zkfh treatment with long-term healthy lifestyle change, decreased [...] house. She continues to work with our erisa attorney. She understands the need for preplanning, following the plate method, having healthy foods around, keeping unhealthy foods out of her house and eating healthy Whole Foods. She does not like to cook or prep. She understands that shopping, chopping and preplanning so that she can eat healthy foods is essential to her recovery. She will continue to work with our erisa attorney. We could consider Wellbutrin in the future [...] lab work and TSH with her PCP. [facility] Work Phone: 1(304) 623-769002-22-2024 Evaluation note* Author Rolando Castellanos [facility] Authored November 22, 2023 12:47pm Highest [...] given. 1. Prediabetes most recent A1c of 5.6-zdcwx-ovbh treatment with long-term healthy lifestyle change, decreased [...] house. She continues to work with our erisa attorney. She understands the need for preplanning, following the plate method, having healthy foods around, keeping unhealthy foods out of her house and eating healthy Whole Foods. She does not like to cook or prep. She understands that shopping, chopping and preplanning so that she can eat healthy foods is essential to her recovery. She will continue to work with our erisa attorney. We could consider Wellbutrin in the future [...] TSH with her PCP. Author Rolando Castellanos [facility] Authored January 03, 2024 11:3 9am [...] given. 1. Prediabetes most recent A1c of 5.2-jndxd-dxqe treatment with long-term healthy lifestyle change, decreased [...] the gym and start with a personal care worker. She should consider pool therapy/ water therapy. She needs to try to keep her trigger foods out of the house. She is to try to find healthier desserts and she tends to like to have 1 after each meal. Lately her cravings for sweets have been decreased. She continues to work with our erisa attorney. She understands the need for preplanning, following the plate method, having healthy foods around, keeping unhealthy foods out of her house and eating healthy Whole Foods. She does not like to cook or prep. She understands that shopping, chopping and preplanning so that she can eat healthy foods is essential to her recovery. She will continue to work with our erisa attorney. We could consider Wellbutrin in the future [...] lab work and TSH with her PCP. [facility] Work Phone: 1([phone]) 600-930702-01-2024 Evaluation note* Encounter Date Diagnosis Assessment Notes Treatment Notes Treatment Clinical Notes Nov, Hypothyroidism (ICD-10 - E03.9) Pt due for labs - will recheck Nov, Elevated fasting glucose (ICD-10 - R73.01) Continue healthy diet and exercise as able. [facility] Other 01-17-2024 Evaluation note* Encounter Date Diagnosis Assessment Notes Treatment Notes Treatment Clinical Notes Oct, Aftercare following joint replacement surgery (ICD-10 - Z47.1) Oct, Presence of right artificial hip joint (ICD-10 - Z96.641) Oct, Other [facility] at [facility] on 09/03/2023 Doing well Patient may continue increasing activities as tolerated. Continue taking uyhq-gxc-uhtckrx anti-inflammatorie s as needed for assistance with swelling and pain associated with the operative extremity. Follow-up in 6 weeks for repeat examination and repeat x-rays. [facility] Other 01-15-2024 Evaluation note* Encounter Date Diagnosis Assessment Notes Treatment Notes Treatment Clinical Notes Oct, Obesity (ICD-10 - E66.9) Oct, BMI 40.0-44.9, adult (ICD-10 - Z68.41) Oct, Other Summary of Visi t: (A) Discussed including more vegetables (B) Discussed plant proteins (C) Provided recipes [facility] Other 01-02-2024 Evaluation note* Encounter Date Diagnosis Assessment Notes Treatment Notes Treatment Clinical Notes Oct, Hypothyroidism (ICD-10 - E03.9) [facility] 12-20-2023 Evaluation note* Encounter Date Diagnosis [...] right artificial hip joint (ICD-10 - Z96.641) [facility] 12-19-2023 Evaluation note* Encounter Date Diagnosis [...] Aug, Metabolic syndrome X (ICD-10 - E88.81) [facility] Other 12-19-2023 Evaluation note* Author Rolando Castellanos [facility] Authored November 22, 2023 11:47am Highest [...] given. 1. Prediabetes most recent A1c of 5.9-vlmsj-idaa treatment with long-term healthy lifestyle change, decreased [...] house. She continues to work with our erisa attorney. She understands the need for preplanning, following the plate method, having healthy foods around, keeping unhealthy foods out of her house and eating healthy Whole Foods. She does not like to cook or prep. She understands that shopping, chopping and preplanning so that she can eat healthy foods is essential to her recovery. She will continue to work with our erisa attorney. We could consider Wellbutrin in the future [...] lab work and TSH with her PCP. [facility] Work Phone: [phone]) 730-343512-18-2023 Evaluation note* Encounter Date Diagnosis Assessment Notes Treatment Notes Treatment Clinical Notes Aug, Obesity (ICD-10 - E66.9) Aug, BMI 40.0-44.9, adult (ICD-10 - Z68.41) Aug, Other Summary of Visi t: (A) Discussed including more vegetables (B) Answered general nutrition-related questions (C) DIscussed options for including more water [facility] Other 12-01-2023 Evaluation note* Encounter Date Diagnosis [...] patient could proceed with surgery safely. The java development manager was vital for surgery timing and [...] plans. Prolonged services time spent: 31 minutes [facility] Other 11-30-2023 Evaluation note* Encounter Date Diagnosis [...] therapy arrives. Joints Meeting Checklist - Pharmacy: [facility] to bed - Approach/Technique: anterior, [place] bed - Implants: Avenir Complete/G7; - Anesthesia: general vs spinal - Blocks: Fascia iliaca - Preop Antibiotics: Ancef and Vanco - TXA: yes-systemic - Positioning/OR Bed: supine on [place] bed - Intraop X-ray: yes - Alejandra: [...] above surgery. [facility] report generated and reviewed. [facility] Other 11-21-2023 Evaluation note* Encounter Date Diagnosis [...] symptoms. Any developing patterns. Stay well hydrated. [facility] Other 11-13-2023 Evaluation note* Encounter Date Diagnosis Assessment Notes Treatment Notes Treatment Clinical Notes Aug, Obesity (ICD-10 - E66.9) Aug, BMI 40.0-44.9, adult (ICD-10 - Z68.41) Aug, Other Summary of Visi t: (A) Continue current regimen (B) Much emotional support provided today (C) Encouraged continued follow up with counselor [facility] Other 10-31-2023 Evaluation note* Encounter Date Diagnosis Assessment Notes Treatment Notes Treatment Clinical Notes Jul, Acute laryngitis (ICD-10 - J04.0) Patient denies bacterial infection symptoms such as fever facial pressure or chills. Patient has not taken a COVID test. Discussed mofs-epj-zxcaddm medications to use along with steroid pills that can improve her discomfort and laryngitis going forward. Advised that the steroids could elevate her blood sugar and to be mindful of that accordingly. 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 (ICD-10 - Z79.899) Jul, Other osteoporosis without current pathological fracture (ICD-10 - M81.8) Jul, Osteoarthritis of right hip (ICD-10 - M16.11) [facility] 10-23-2023 Evaluation note* Encounter Date Diagnosis Assessment Notes Treatment Notes Treatment Clinical Notes Jul, Obesity (ICD-10 - E66.9) Jul, BMI 40.0-44.9, adult (ICD-10 - Z68.41) Jul, Other Summary of Visi t: (A) Continue current regimen (B) Discussed ways to include more water (C) Discussed ways to include more vegetables [facility] Other 09-27-2023 Evaluation note* Encounter Date Diagnosis [...] the patient works on weight loss management. [facility] Other 09-18-2023 Evaluation note* Encounter Date Diagnosis [...] meals available that fit the plate method [facility] 09-14-2023 Evaluation note* Encounter Date Diagnosis [...] - E78.2) Jun, Depression (ICD-10 - F32.9) 14 Jun, 2023 Low back derangement syndrome (ICD-10 - M53.86) Jun, Hip arthritis (ICD-1 0 - M16.10) Jun, Palpitations (ICD-10 - R00.2) Jun, GERD (gastroesophageal reflux disease) (ICD-10 - K21.9) Jun, Metabolic syndrome X (ICD-10 - E88.81) [facility] 09-11-2023 Evaluation note* Encounter Date Diagnosis [...] E55.9) discussed supplementation. will check D level. [facility] Other 08-28-2023 Evaluation note* Encounter Date Diagnosis Assessment Notes Treatment Notes Treatment Clinical Notes May, Hypothyroidism (ICD-10 - E03.9) [facility] 08-14-2023 Evaluation note* Encounter Date Diagnosis Assessment Notes Treatment Notes Treatment Clinical Notes May, Obesity (ICD-10 - E66.9) May, BMI 40.0-44.9, adult (ICD-10 - Z68.41) May, Other Summary of Visi t: (A) Discussed cooking various foods (B) Find control in indulgences (C) Reviewed the plate method [facility] Other 07-17-2023 Evaluation note* Encounter Date Diagnosis Assessment Notes Treatment Notes Treatment Clinical Notes Mar, Obesity (ICD-10 - E66.9) Mar, BMI 40.0-44.9, adult (ICD-10 - Z68.41) Mar, Other Summary of Visi t: (A) Discussed cooking various foods (B) Find control in indulgences (C) emphasize self-care [facility] Other 05-17-2023 NotePROCEDURE: XR FOOT LT MIN [...] Electronically authenticated by: ARIELA SCHWAB Date: 2023-02-14 06:48[facility]04-13-2023 Evaluation note* Encounter Date Diagnosis Assessment [...] 2. Increase veggies, follow the plate method [facility] Other 03-14-2023 Evaluation note* Encounter Date Diagnosis Assessment Notes Treatment Notes Treatment Clinical Notes Nov, Abnormal laboratory test result (ICD-10 - R89.9) [facility] 03-08-2023 NoteOPERATIVE NOTE OPERATION DATE: 12/06/2022 [...] in 10 years. CC: Waqas Pierce M.D.[facility] [id number] Evaluation note* Encounter Date Diagnosis Assessment Notes [...] - M16.10) Nov, Hypertension (ICD-10 - I10) [facility] 02-14-2023 Evaluation note* Encounter Date Diagnosis [...] patient set personal goal using given handout. [facility] Other 02-08-2023 NoteChief Complaint consultation for colonoscopy [...] Years., 11/08/2022 Family History (more content not included)...[facility]:Result Comment: Electronically Signed By: SOPHIA PINEDA, Efrain Layne\Date and Time Signed: 11/08/22 15:29 [id number] Evaluation note* Encounter Date Diagnosis Assessment Notes [...] - G47.33) presently compliant with machine, etc [facility] 01-13-2023 Evaluation note* Encounter Date Diagnosis [...] Patient is interested in meeting with our horticulture/floriculture teacher, telephone encounter started to connect with her [...] the week. Encouraged to take advantage of horticulture/floriculture teacher available at [facility] that can help work around limitations. She is open to meeting with our horticulture/floriculture teacher for guidance on exercises she can complete with her severe limitations from her foot, hip and back. Telephone encounter started. Oct, Plantar fasciitis (ICD-10 - M72.2) Oct, Arthritis of hip (ICD-10 - M16.10) Oct, Impaired fasting glucose (ICD-10 - R73.01) [facility] Other 12-07-2022 Evaluation note* Encounter Date Diagnosis [...] while she works on her weight loss. [facility] Other 11-18-2022 NotePROCEDURE: XR HIP RT 2 [...] Electronically authenticated by: SHAWNEE KELLY Date: 2022-08-18 15:54[facility]11-18-2022 NotePROCEDURE: XR FOOT LT MIN 3 [...] Electronically authenticated by: SHAWNEE KELLY Date: 2022-08-18 15:42[facility]09-16-2022 NotePROCEDURE: XR FOOT LT MIN 3 [...] Electronically authenticated by: SHAWNEE KELLY Date: 2022-06-16 16:24[facility]09-16-2022 NotePROCEDURE: XR FOOT LT MIN 3 [...] Electronically authenticated by: SHAWNEE KELLY Date: 2022-06-16 16:24[facility] [id number] NotePROCEDURE: XR FOOT LT MIN 3 VIEWS COMPARISON: 04/24/2022 HISTORY: Pain in left foot FINDINGS: BONES:Stable postsurgical changes with subtalar fusion, medial midfoot hindfoot fusion and spacer at the first tarsometatarsal joint. No mechanical failure. Severe degenerative changes. SOFT TISSUES:Extensive soft tissue swelling.Dorsal woundvac EFFUSION:None visible. OTHER: Negative. IMPRESSION: Stable degenerative and post surgical changes Electronically authenticated by: SHAWNEE KELLY Date: 2022-05-11 17:16[facility]07-25-2022 NotePROCEDURE: XR FOOT LT MIN 3 [...] Electronically authenticated by: ARIELA SCHWAB Date: 2022-04-24 14:11[facility]07-25-2022 NotePROCEDURE: XR FOOT LT 2V HISTORY: [...] authenticated by: ARIELA SCHWAB Date: 2022-04-24 11:54[facility] [id number] NotePROCEDURE: XR FOOT LT MIN 3 VIEWS [...] authenticated by: ARIELA SCHWAB Date: 2022-04-22 20:52[facility] [id number] NotePROCEDURE: XR FOOT LT MIN 3 VIEWS [...] Electronically authenticated by: SHAWNEE KELLY Date: 2022-04-14 17:03[facility]10-25-2021 Evaluation note* Encounter Date Diagnosis Assessment [...] Patient care instructions given in writting by [facility] At [facility] document. [facility] Other 09-23-2021 Evaluation note* Encounter Date Diagnosis [...] note writ ten by Safia Calderon CMA, Six Sigma Project Manager. Edited and approved by Dr. Junior Mgcowan MD. [facility] Other Evaluation + Plan note No data available for this section General Surgery Mary Evaluation noteNo InformationNort Shirley Mae's Other Evaluation noteNo assessment information available [facility] Work Phone: Evaluation note* Diagnosis Onset Date Resolution Status Change in voice acute Essential (primary) hypertension acute Family history of von Willebrand disease acute Hyperlipidemia acute Hypothyroidism acute [facility] Work Phone: Evaluation note* Diagnosis Onset Date Resolution Status Change in voice acute Essential (primary) hypertension acute Family history of von Willebrand disease acute Hyperlipidemia acute Hypothyroidism acute Medicare annual wellness visit, subsequent acute [facility] Work Phone: [facility] general Narrative - Reported* Type Description Date Medical History DDD (degenerative disc disease), lumbar Surgical History hip replacement Surgical History tonsillectomy Surgical History carpal tunnel release bilateral Hospitalization History see above [facility] Other [facility] general Narrative - Reported* Type Description Date Medical History DDD (degenerative disc disease), lumbar Medical History spinal stenosis Surgical History hip replacement Surgical History tonsillectomy Surgical History carpal tunnel release bilateral Surgical History vein ablasion Hospitalization History see above [facility] Other Hisnxnt general Narrative - Reported* Type Description Date Medical History DDD (degenerative disc disease), lumbar Medical History spinal stenosis Surgical History hip replacement Surgical History tonsillectomy Surgical History carpal tunnel release bilateral Surgical History vein ablasion Surgical History skin graft left foot Hospitalization History see above [facility] Other [facility] general Narrative - Reported* Type Description Date [...] x3 202 2 Hospitalization History see above [facility] Other History general Narrative - Reported* Type [...] HIp replacement 09/03/23 Hospitalization History see above [facility] Other Hospital Discharge instructions No data available for this section General Surgery [facility] Discharge instructions Additional Instructions Joint Replacement Discharge Instructions Your safety during your recovery process is important to us. Please seek immediate emergency care if you have sudden chest pain or shortness of breath. Additionally, please call our office at [phone] should any of the following occur: wound [...] to walk without your walker and your personal care aid until the therapist checks you the following [...] and/or laxatives as directed. You may take [id number] Benadryl if itching occurs without a rash or hives. Icing and elevation will help relieve pain as well, do not underestimate the power of ice and elevation. We do recommend that you stop taking narcotic pain medications by 4-6 weeks after surgery and if necessary, continue to use anti-inflammatory medications such as Mobic (meloxicam), Celebrex (celecoxib), or an [id number]-[id number] medication (Aleve, Motrin, Ibuprofen, etc). Driving an [...] feel free to call our office at [phone]. You are a priority of ours and we will not be upset with you if you call. We would much rather you call to confirm aspects of your recovery process as opposed to possibly hindering your recovery with inappropriate care. We are committed to providing you with the best care possible. David Mcfarland II, MD Updated 12/15/2022[facility] Work Phone: Progress note No data available for this section General Surgery Aragon Reason for referral (narrative)* Reason Appt: Diagnosis 1 Depression (F32.9) Referral Organization [facility] Referring Provider First Name Rolando Referring Provider Last Name Jasmin Referring Provider Specialty Internal Me dicine Referred Organization [facility] Natalia Referred Address [address] [place],[phone] Referred Provider Specialty Miscellaneou s Referral Priority Routine General Notes Anna Jose 2022 01:07:39 PM >Please contact patient to schedule. [facility] Other Summary Purpose Family History No Family [...] RD WM f/u Sick-Did not test for [phone] Reason for Visit Sinusitis, acute max illary BMI 40.0-44.9, adult Fatty liver Hyperlipidemia Hypertension Pre-diabetes Aftercare following joint replacement Chest congestion Cough Chief Complaint Rd Wm F/U Obesity z47.[address] WM f/u Sinus infection WMN F/UP Z47.1 - Aftercare following joint replacement surg [address] WM f/u Sick-Did not test for [id number] Reason for Visit Sinusitis, acute max illary BMI 40.0-44.9, adult Fatty liver Hyperlipidemia Hypertension Pre-diabetes Aftercare following joint replacement Bronchitis Chest congestion Cough Chief Complaint Rd Wm F/U Obesity z47.[address] WM f/u BH Sinus infection WMN F/UP Z47.1 - Aftercare following joint replacement surg [address] WM f/u Sick-Did not test for [id number] RD WM f/u Reason for Visit Sinusitis, [...] RD WM f/u Sick-Did not test for [phone] RD WM f/u Habit forming Reason for Visit Sinusitis, acute max illary BMI 40.0-44.9, adult Fatty liver Hyperlipidemia Hypertension Pre-diabetes Aftercare following joint replacement Bronchitis Chest congestion Cough BMI 40.0-44.9, adult Fatty liver Hyperlipidemia Pre-diabetes Chief Complaint Z47.1 - Aftercare fo [facility] joint replacement surg [address] WM f/u Sick-Did not test for [phone] RD WM f/u Habit forming Reason for Visit Aftercare following joint replacement Bronchitis Chest congestion Cough BMI 40.0-44.9, adult Fatty liver Hyperlipidemia Pre-diabetes Chief Complaint BH RD WM f/u Sick-Did not test for [phone] RD WM f/u Habit forming Reason for [...] and content) DATE CREATED AUTHOR 04/29/2021 [facility] DATE CREATED AUTHOR AUTHOR'S ORGANIZ ATION 12/20/2022 [facility] DATE CREATED AUTHOR AUTHOR'S ORGANIZ ATION 03/09/2023 [facility] DATE CREATED AUTHOR AUTHOR'S ORGANIZ ATION 08/19/2024 [facility] DATE CREATED AUTHOR AUTHOR'S ORGANIZ ATION 08/23/2024 [facility] DATE CREATED AUTHOR AUTHOR'S ORGANIZ ATION 08/30/2024 [facility] REASON FOR VISIT (unrecogniz ed [...] End: December 26, 2023 Carrie Bhakta APRN [employer]-C Attending Provider Act pradeep Start: December 26, [...] January 15, 2024 End: January 15, [address] LD Attending Provider Active Start: January 15, 2024 End: January 15, 2024 Team Status: Inactive Member Role Status Dates Waqas Pierce MD Primary Care Provider Active Start: February 21, 2024 End: February 21, 2024 Rolando Castellanos MD Attending Provider Active Start: February 21, 2024 End: February 21, 2024 Team Status: Inactive Member Role Status Dates Grecia Pham [facility] Attending Provider Active Start: October 15, [...] Inactive Member Role Status Dates Grecia Pham [facility] Attending Provider Active Start: September 17, [...] BE BASED ON THE PRIMARY CLINICAL RECORDS. [employer] provides no warranty or guarantee of the accuracy or completeness of information in this document.
[2024-09-16 19:55] LABS: Bacteria Urine NONE SEEN #/HPF (NONE SEEN); Cast Seen? NONE SEEN #/LPF (NONE SEEN); Crystals Seen? None Seen #/HPF (None Seen); Mucus Urine NONE SEEN (NONE SEEN); RBC Urine 0-2 #/HPF (0-2); Squamous Epithelial Cell Urine RARE #/LPF (NONE/RARE); Urine Culture Indicated NO; WBC Urine 0-2 #/HPF (NONE SEEN)
[2024-09-16 19:58] LABS: Internal Control Within Normal Limits; Strep A Antigen Screen Negative
[2024-09-16 20:03] LABS: Influenza Virus A Antigen Negative; Influenza Virus B Antigen Negative; Internal Control Within Normal Limits; SARS-CoV-2 Ag NEGATIVE (NEGATIVE)
[2024-09-16] MEDS: AZITHROMYCIN 250 MG TABLET 500 MG PO (21:14)
[2024-09-16 21:21] VITALS: PULSE 94; TEMP 37.3; O2SAT 97
== END 2024-09-16 21:25 | disposition home or self-care (01) ==
PROVIDERS: Nurse Practitioner Family; Emergency Provider Student in an Organized Health Care Education/Training Program; PCP Family Medicine
DX: J18.9 Pneumonia, unspecified organism (principal); K44.9 Diaphragmatic hernia without obstruction or gangrene; R42 Dizziness and giddiness; R50.9 Fever, unspecified
CPT/HCPCS: 71045; 81001; 87070; 87804; 87811; 87880; 99285

== ENCOUNTER 2024-09-17 08:37 | Outpatient (OUT) | payer MEDICARE, SELFPAY ==
--- NOTE | 2024-09-17 08:45 | P.CN_ITS ---
Consult Note: HPI Data of Consult Patient: known to practice within the last 3 years Consult date: 08/18/24 Requesting Physician: Roxie Calixto NP Primary Care Provider: Yuliana Cortez MD Consult Narrative Reason for consult: low back, bilateral LE pain Narrative: 64yof who presents for evaluation. longstanding low back and bilateral LE pain. previously had injection therapy >3 years ago, which provided relief. has engaged in a series of provider directed home exercises > 6 weeks, without lasting benefit. uses otc pain meds as needed. denies adverse med side effects. recently underwent lumbar MRI with results below. cc:: CC: Roxie Calixto NP Review of Systems ROS Status of ROS 10 or more systems reviewed and unremark able except as noted in history and below Musculoskeletal Reports: back pain and extremity pain PFSH PFSH Social History Little interest or pleasure in doing things: not at all Feeling down, depressed, or hopeless: not at all Meds Home Medications and Allergies Home Medications ?Medication ?Instructions ?Recorded ?Confirmed ?Type acetaminophen 325 mg tablet 325 mg PO BID PRN pain 08/18/24 09/16/24 History (Tylenol) atorvastatin 20 mg tablet 20 mg PO DAILY 08/18/24 09/16/24 History cholecalciferol (vitamin D3) 1,250 50,000 unit PO QWEEK 08/18/24 09/16/24 History mcg (50,000 unit) capsule coenzyme Q10 75 mg capsule (Ultra 75 mg PO DAILY 08/18/24 09/16/24 History CoQ10) levothyroxine 75 mcg capsule 75 mcg PO DAILY 08/18/24 09/16/24 History loratadine 5 mg-pseudoephedrine ER 1 tab PO DAILY PRN allergy symptoms 08/18/24 09/16/24 History 120 mg tablet,extended release,12hr (Claritin-D 12 Hour) metoprolol succinate 25 mg 25 mg PO DAILY 08/18/24 09/16/24 History tablet,extended release 24 hr pantoprazole 40 mg tablet,delayed 40 mg PO DAILY 08/18/24 09/16/24 History release azithromycin 250 mg tablet See Rx Instructions PO .COMPLEX #6 09/16/24 Rx (Zithromax Z-Wei) tabs Allergies Allergy/AdvReac Type Severity Reaction Status Date / Time Penicillins Allergy Unknown Unknown Verified 08/18/24 16:21 seritonin Allergy Unknown Unknown Uncoded 08/18/24 16:21 Exam Narrative Exam Narrative: Psych-alert and oriented x 3. Attentive and appropriate, constitutionally normal, displays normal mood and affect per situation. There are no obvious deficits in memory, reasoning, or intellect.? Skin-no obvious rashes, bruising, erythema noted to the patient's area of pain.? Extremities- extremities are warm with minimal edema and palpable pulses. Lumbar-tenderness to palpation noted in the lumbar spine and paraspinal musculature. Pain is elicited with flexion, extension, and lateral rotation of the lumbar spine. Range of motion is diminished with these motions. Facet loading maneuvers are positive..? Strength-noted to be unremarkable with the exception of decreased strength rated at 4 out of 5 in bilateral quadriceps femoris, anterior tibialis. Sensory-no notable sensory deficits in the bilateral lower extremities to touch or pinprick in all dermatomal distributions with the exception to decreased sensation to the bilateral L3, 4, 5 dermatomal distribution Coordination remains intact.? Gait remains non-antalgic Results Imaging Lumbar MRI: Attestation: I have reviewed the pertinent imaging results. Radiologist's impression: There is dextroconvex scoliosis with apex at L3. Straightening of the lumbar spine. No subluxation. No compression fractures. Moderate disc space narrowing in the lower thoracic spine to the L2-L3 level and mild disc space narrowing in the remaining lumbar spine. Modic type I changes at L1-L2. Conus medullaris terminates at L2. No abnormal signal in the distal spinal cord and the conus medullaris. L5-S1: Broad-based disc protrusion, moderate facet arthropathy and ligamentum flavum hypertrophy. Mild spinal canal, moderate to severe right and moderate left foraminal stenosis. L4-L5: Disc bulge, severe facet arthropathy and ligamentum flavum hypertrophy. Moderate to severe spinal canal and bilateral lateral recess stenosis and mild bilateral foraminal stenosis. L3-L4: Disc bulge and moderate facet arthropathy. Mild to moderate spinal canal and left foraminal stenosis. L2-L3: Disc bulge and moderate facet arthropathy. Superimposed small right subarticular disc extrusion or sequestration with inferior migration. No spinal canal stenosis. Minimal bilateral foraminal stenosis. L1-L2: Disc bulge and mild facet arthropathy. No spinal canal stenosis. Moderate right foraminal stenosis. T12-L1: Minimal disc bulge without spinal canal or significant neural foraminal stenosis. Assessment and Plan Assessment and Plan (1) Lumbar stenosis with neurogenic claudication: (2) Lumbar spondylosis: (3) Myalgia, other site: Plan lumbar MRI reviewed with pt bilateral L3-4 TFESI under fluoroscopy followed by bilateral L4-5 TFESI for lumbar stenosis with NC under fluoroscopy. risks vs benefits reviewed continue HEP as tolerated continue tylenol PRN f/u after injection
== END 2024-09-17 08:38 | disposition home or self-care (01) ==
LOC: PM 08:38
PROVIDERS: PCP Family Medicine; Visit Provider Nurse Practitioner
DX: M48.062 Spinal stenosis, lumbar region with neurogenic claudication (principal); M47.816 Spondylosis without myelopathy or radiculopathy, lumbar region; M79.18 Myalgia, other site
CPT/HCPCS: G0463

== ENCOUNTER 2024-09-29 06:31 | Day surgery (SDC) | payer MEDICARE, SELFPAY ==
--- OUTSIDE RECORDS SUMMARY | 2024-09-29 06:35 | XMS_ITS | CCD ---
Author Organization [facility] Care Team Providers Care Travel Information Center Supervisor Name Role Phone SELF, REFERRED Referring Unavailable DAVID LR Admitting Unavailable DAVID LR Attending Unavailable WAQAS PIERCE Primary Care Unavailable DAVID LR Surgeon Unavailable [place] Procedure Practitioner Unavailab JUDSON Martinez Surgeon Unavailable [place] Procedure Practitioner Unavailab Junior Peterson Unavailable Mallory Yuen Unavailable NON STAFF Primary Care Provider UnavailMD David Merritt II Attending Provider David Mcfarland II Unavailable [phone] MD Waqas Pierce Primary Care Provider [phone] MD Waqas Pierce Attending Provider WAQAS PIERCE Primary Care Physician [phone] Waqas Pierce Unavailable Rachel Vela Unavailable Rolando [...] AMY Iverson Consulting Unavailable PIERCE, DR WAQAS Mendze Primary Care Unavailable HIGHLANDER, AMY Iverson Admitting [...] PIERCE, DR WAQAS Mendez Primary Care Unavailable [facility], DR ARIELA Vaz Consulting Unavailable LAMIN [...] PIERCE, DR WAQAS Mendez Primary Care Unavailable [facility], AMY Iverson Attending Unavailable HIGHLUDAY, AMY Iverson [...] PIERCE, DR WAQAS Mendez Primary Care Unavailable [facility] MAY Iverson Admitting Unavailable MD David Mcfarland II Attending Provider MD Waqas Pierce Primary Care Provider NON STAFF Primary Care Provider Unavailsabino mendez Carrie Perea Unavailable MD David Mcfarland II Attending Provider MD Waqas Pierce Primary Care Provider NON STAFF Primary Care Provider UnavailMD Marcin Chambers Attending Provider MD David Mcfarland II Attending Provider MD David Mcfarland II Attending Provider [phone] MD Waqas Pierce Primary Care Provider NON STAFF Primary Care Provider UnavailMD Marcin Chambers Attending Provider MD Marcin Grace Attending Provider MD David Mcfarland II Attending Provider MD Waqas Pierce Primary Care Provider MD David Mcfarland II Attending Provider [phone] NON STAFF Primary Care Provider UnavailMD Marcin Chambers Attending Provider [phone] ANITA TAFOYA Attending Unavailable Sergio PINEDA, Angel Grande Attending Unavailable Bartolo II, David Gordillo Admitting Unavailabl e NON STAFF Primary Care Unavailable Hatillo II, David Gordillo Attending Unavailabl e Hatillo II, David Gordillo Attending Unavailabl e NON STAFF Primary Care Unavailable Hatillo II, David Gordillo Admitting Unavailabl e Bartolo II, David Gordillo Admitting Unavailabl e PierceWaqas Primary Care Unavailable Bartolo II, David Gordillo Attending Unavailabl e Hatillo II, David Gordillo Attending Unavailabl e Bartolo II, David Gordillo Admitting Unavailabl e NON STAFF Primary Care Unavailable Bartolo BAUGH, David Gordillo Admitting Unavailabl e PierceWaqas Primary Care Unavailable Hatillo II, David Gordillo Attending Unavailabl e Hatillo II, David Gordillo Attending Unavailabl e Hatillo AMAURI, David Gordillo Admitting Unavailabl e PierceWaqas Primary Care Unavailable Allergies Allergy Classification Reported Allergen(s) Allergy Type Date of Onset Reaction(s) Facility metFORMIN (1 source) metFORMIN; Translations: [METFORMIN] Drug Allergy 12-17-19 21 [facility] Repository Penicillins (antibiotic) (1 source) Penicillin Drug Allergy 03-11-20 18 [facility] Rep[facility] Serotonin (1 source) Serotonin; Translations: [SEROTONIN] Drug Allergy 12-17-19 21 [facility] Rep[facility] (20 sources) Penicillin G Drug Allergy 11-01-19 24 [facility] (20 sources) CYMBOLTA Propensity to adverse reactions temporary blindness and couldnt feel herself breathing [facility] Other (20 sources) DULoxetine; Translations: [duloxetine] Drug Allergy 09-05-20 22 Impairment level of vision (disorder) [facility] (20 sources) metFORMIN; Translations: [metformin] Drug Allergy 09-05-20 22 Abdominal mass (finding) [facility] [place] (20 sources) Penicillin; Translations: [penicillin] Drug Allergy 08-08-20 13 Eruption of skin (disorder) [facility] [place] (1 source) DULoxetine Drug Allergy [facility] (1 source) metFORMIN Drug Allergy [facility] (18 sources) Penicillins; Translations: [PENICILLINS] Drug allergy (disorder) 10-01-19 00 Rash [facility] (20 sources) Rx Essentials Antidepressant *HEMATOPOIETIC AGENTS Propensity to adverse reactions [facility] Other (3 sources) Allergies Reconciled Propensity to adverse reactions 08-17-20 21 Unknown [facility] Other (20 sources) Substance with penicillin structure and antibacterial mechanism of action (substance) Drug allergy Unknown [facility] Other (20 sources) Substance with serotonin re-uptake inhibitor mechanism of action (substance) Drug allergy 09-04-20 12 SEROTONIN HCL [facility] [employer] Other (3 sources) patient allergy list reviewed by nurse or physicia Propensity to adverse reactions 12-09-19 14 Comment:Done [facility] Other (16 sources) Serotonin Drug Allergy 08-28-20 23 temporary blindness, couldn't feel self breath [facility] (13 sources) Rx Essentials Antidepressant * Allergy to substance 11-01-19 Comment:[facility] Medications Current Medications Medication Drug Class(es) Dates [...] DISCHARGE DOS: 09/03/23 Aug, Active Tylenol Active [id number] 200 actuat albuterol 0.09 mg/actuat metered dose [...] Ordered docusate sodium 50 mg / sennosides, intermediate 8.6 mg oral tablet (12 sources) Start: [...] Once a day Active polyethylene glycol 3350 29933 mg powder for oral solution (13 sources) [...] (1999) (3 sources) take 1 capsule by [facility] once daily Vitamin D 50 MCG [...] 9:19am Start: 10-19-2019 take 1 capsule by [facility] every twelve hours Doxycycline Monohydrate 100 [...] 4 Chronic Other aftercare (2 sources) 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; Translations: [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 THERAPY] Onset: 3 Episodic Other [...] 08-27-2024 XR hip RT min 2V(w/wo pelvis)* [facility] [address] [place] [address] XRay Report Signed Patient: Nicol Smith MR#: [id number] 9 : 1960 Acct:[id number] Age/Sex: 64 / F ADM Date: 08/27/24 Loc: [facility] Room: Type: [facility] Attending Dr: David Mcfarland II, MD Copies [...] Magdy Crooks M.D.08/27/2024 4:17 PM Dictation Location: [place] [address] Transcribed By: [facility] 08/27/241616 Dictated By: Magdy Crooks II, MD 08/27/241616 Signed By: 08/27/241616 Normal [facility] Office Visiton 07-25-2024 Follow-up visit [id number] Nicol Smith 1960 F Date Provider Department Center 07/25/2024 3848-ANITA TAFOYA CARD [facility] Family History Problem Relation Age of Onset Diabetes Father Heart failure Father Diabetes Paternal Grandmother Diabetes Paternal Grandfather Family Status - Relation Status Age at Father Paternal Grandmother Paternal Grandfather Level of Service:02876 [place] OFFICE/OUTPATIENT ESTABLISHED MOD MDM 30 MIN Normal [facility] Albumin [Mass/volume] in Ser um or Plasmaon 07-15-2024 Albumin [Mass/Vol] 3.7 g/dL 2.9-4.4 [facility] Basophils Auto (Bld) [#/Vol] on 07-15-2024 Basophils (Bld) [#/Vol] 0.1 10 3/uL 0.0-0.1 [facility] Basophils/100 WBC Auto (Bld) on 07-15-2024 Basophils/100 WBC (Bld) 1.5 % 0.2-2.0 [facility] Eosinophils/100 WBC Auto (Bl d)on 07-15-2024 Eosinophils/100 WBC (Bld) 2.0 % 0.9-7.0 [facility] Erythrocyte distribution wid th Auto (RBC) [Ratio]on 07-15-2024 Erythrocyte distribution width (RBC) [Ratio] 22.6 % High 11.0-15.0 [facility] Estimated glomerular filtrat ion rate (GFR) non- Americanon 07-15-2024 GFR/1.73 sq M.predicted among non-blacks MDRD (S/P/Bld) [Vol rate/Area] 59 mL/min/{1.73_m2} Low >=60 mL/min/1.7 3m 2 [facility] Globulin Calc (S) [Mass/Vol] on 07-15-2024 Globulin (S) [Mass/Vol] 3.9 g/dL [facility] Hematocrit Auto (Bld) [Volum e fraction]on 07-15-2024 Hematocrit (Bld) [Volume fraction] 38.2 % 36.0-48.0 [facility] Hemoglobin [Mass/volume] in Bloodon 07-15-2024 Hemoglobin (Bld) [Mass/Vol] 11.2 g/dL Low 12.0-16.0 [facility] IgA [Mass/volume] in Serum o r Plasmaon 07-15-2024 IgA [Mass/Vol] 117 mg/dL 87-352 [facility] IgG [Mass/volume] in Serum o r Plasmaon 07-15-2024 IgG [Mass/Vol] 938 mg/dL 586-1602 [facility] IgM [Mass/volume] in Serum o r Plasmaon 07-15-2024 IgM [Mass/Vol] 43 mg/dL 26-217 [facility] Iron binding capacity [Mass/ volume] in Serum or Plasmaon 07-15-2024 Iron binding capacity [Mass/Vol] 457.0 ug/dL High 250.0-450. 0 [facility] Iron saturation [Mass Fracti on] in Serum or Plasmaon 07-15-2024 Iron saturation [Mass fraction] 3.7 % [facility] Laboratory - Chemistry and C hemistry - challengeon 07-15-2024 Albumin [Mass/Vol] 3.6 g/dL 3.4-5.0 [facility] ALP [Catalytic activity/Vol] 129 U/L High 46-116 [facility] ALT [Catalytic activity/Vol] 28 U/L 14-59 [facility] AST [Catalytic activity/Vol] 16 U/L 15-37 [facility] Bilirubin [Mass/Vol] 0.3 mg/dL 0.2-1.0 [facility] Calcium [Mass/Vol] 9.4 mg/dL 8.5-10.1 [facility] Chloride [Moles/Vol] 107 mmol/L 98-107 [facility] CO2 [Moles/Vol] 23.5 mmol/L 21.0-32.0 [facility] Cobalamin (Vitamin B12) [Mass/Vol] 619 pg/mL 232-1245 [facility] Comment on above: Performed at: - [address] [id number] Director: Luis Mukherjee PhD, Phone: [phone] Creatinine [Mass/Vol] 0.96 mg/dL 0.55-1.02 [facility] Ferritin [Mass/Vol] 22.0 ng/mL 8.0-252.0 [facility] GFR/1.73 sq M.predicted MDRD (S/P/Bld) [Vol rate/Area] mL/min/{1.73_m2} >=60 mL/min/1.7 3m 2 [facility] Glucose [Mass/Vol] 170 mg/dL High 74-106 [facility] Iron [Mass/Vol] 17.0 ug/dL Low 50.0-170.0 [facility] LDH [Catalytic activity/Vol] 205 U/L 81-234 [facility] Potassium [Moles/Vol] 4.0 mmol/L 3.5-5.1 [facility] Protein [Mass/Vol] 0.2 g/dL Abnormal Not Observed [facility] Protein [Mass/Vol] 7.5 g/dL 6.4-8.2 [facility] Sodium [Moles/Vol] 143 mmol/L 136-145 [facility] Urea nitrogen [Mass/Vol] 18.0 mg/dL 7.0-18.0 [facility] Urea nitrogen/Creatinine [Mass ratio] 18.8 mg/mg [facility] Laboratory - Hematology and Cell countson 07-15-2024 ESR (Bld) [Velocity] 62 mm/h High <=30 [facility] Immature granulocytes/100 WBC (Bld) 0.2 % 0.0-0.5 [facility] Leukocytes [#/volume] correc janell for nucleated erythrocytes in Blood by Automated counon 07-15-2024 WBC corrected for nucl RBC Auto (Bld) [#/Vol] 5.5 10 3/uL 4.0-11.0 [facility] Lymphocytes Auto (Bld) [#/Vo l]on 07-15-2024 Lymphocytes (Bld) [#/Vol] 1.6 10 3/uL 1.2-3.8 [facility] Lymphocytes/100 WBC Auto (Bl d)on 07-15-2024 Lymphocytes/100 WBC (Bld) 28.8 % 20.5-60.0 [facility] MCH Auto (RBC) [Entitic mass ]on 07-15-2024 MCH (RBC) [Entitic mass] 22.7 pg Low 26.7-34.0 [facility] MCHC Auto (RBC) [Mass/Vol]on 07-15-2024 MCHC (RBC) [Mass/Vol] 29.3 g/dL Low 29.9-35.2 [facility] MCV Auto (RBC) [Entitic vol] on 07-15-2024 MCV (RBC) [Entitic vol] 77.5 fL Low 81.0-99.0 [facility] Monocytes Auto (Bld) [#/Vol] on 07-15-2024 Monocytes (Bld) [#/Vol] 0.3 10 3/uL 0.3-0.8 [facility] Monocytes/100 WBC Auto (Bld) on 07-15-2024 Monocytes/100 WBC (Bld) 5.9 % 1.7-12.0 [facility] Neutrophils Auto (Bld) [#/Vo l]on 07-15-2024 Neutrophils (Bld) [#/Vol] 3.4 10 3/uL 1.4-6.5 [facility] Neutrophils/100 WBC Auto (Bl d)on 07-15-2024 Neutrophils/100 WBC (Bld) 61.6 % 43.0-75.0 [facility] No Panel Informationon 07-15 C-Reactive Protein, Quantitative <0.50 mg/dL <=0.50 [facility] Eosinophils # (Auto) 0.1 10 3/uL 0.0-0.7 [facility] Folate 18.00 ng/mL 8.60-58.90 [facility] Immature Granulocyte # (Auto) 0.01 10 3/uL 0.00-0.03 [facility] Protein Electrophoresis Note Comment . [facility] Comment on above: Protein electrophore sis scan will follow via computer,mail, or civil clerk delivery.Performed at: [address] [id number] Director: Luis Mukherjee PhD, Phone: [phone] Platelet mean volume Auto (B ld) [Entitic vol]on 07-15-2024 Platelet mean volume (Bld) [Entitic vol] 9.5 fL 9.5-13.5 [facility] Platelets Auto (Bld) [#/Vol] on 07-15-2024 Platelets (Bld) [#/Vol] 412 10 3/uL 150-450 [facility] Protein [Mass/volume] in Ser um or Plasmaon 07-15-2024 Protein [Mass/Vol] 7.0 g/dL 6.0-8.5 [facility] RBC Auto (Bld) [#/Vol]on RBC (Bld) [#/Vol] 4.93 10 6/uL 4.20-5.40 [facility] Comment on above: ANISOCYTOSIS 1+ Reticulocytes/100 RBC Auto ( Bld)on 07-15-2024 Reticulocytes/100 RBC (Bld) 2.69 % 0.60-3.10 [facility] Serum globulin measurement ( mass/volume)on 07-15-2024 Globulin (S) [Mass/Vol] 3.3 g/dL 2.2-3.9 [facility] Serum or plasma albumin/glob ulin mass ratioon 07-15-2024 Albumin/Globulin [Mass ratio] 0.9 {ratio} [facility] Albumin/Globulin [Mass ratio] 1.2 {ratio} 0.7-1.7 [facility] Serum or plasma alpha 1 glob ulin measurement by electrophoresis (mass/volume)on 07-15-2024 Alpha 1 globulin Elph [Mass/Vol] 0.3 g/dL 0.0-0.4 [facility] Serum or plasma alpha 2 glob ulin measurement by electrophoresis (mass/volume)on 07-15-2024 Alpha 2 globulin Elph [Mass/Vol] 0.9 g/dL 0.4-1.0 [facility] Serum or plasma anion gap de terminationon 07-15-2024 Anion gap [Moles/Vol] 16.5 mmol/L [facility] Serum or plasma beta globuli n measurement by electrophoresis (mass/volume)on 07-15-2024 Beta globulin Elph [Mass/Vol] 1.1 g/dL 0.7-1.3 [facility] Serum or plasma gamma globul in measurement by electrophoresis (mass/volume)on 07-15-2024 Gamma globulin Elph [Mass/Vol] 0.9 g/dL 0.4-1.8 [facility] Serum or plasma immunoelectr ophoresis interpretationon 07-15-2024 Interpretation IEP [Interp] Comment Abnormal . 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 Activated partial thrombopla stin time (aPTT) in platelet poor plasma by coagulation aon 06-17-2024 aPTT Coag (PPP) [Time] 26.5 s 22.3-36.2 [facility] Basophils Auto (Bld) [#/Vol] on 06-17-2024 Basophils (Bld) [#/Vol] 0.1 10 3/uL 0.0-0.1 [facility] Basophils/100 WBC Auto (Bld) on 06-17-2024 Basophils/100 WBC (Bld) 1.4 % 0.2-2.0 [facility] Cholesterol in LDL Calc [Mas s/Vol]on 06-17-2024 Cholesterol in LDL [Mass/Vol] 72.0 mg/dL [facility] Comment on above: <100 mg/dl [id number] 0-129 mg/dl NEAR OR ABOVE [id number] mg/dl BORDERLINE [id number] mg/dl HIGH>190 mg/dl VERY HIGH Cholesterol in VLDL Calc [Ma ss/Vol]on 06-17-2024 Cholesterol in VLDL [Mass/Vol] 33.4 mg/dL [facility] Eosinophils/100 WBC Auto (Bl d)on 06-17-2024 Eosinophils/100 WBC (Bld) 1.8 % 0.9-7.0 [facility] Erythrocyte distribution wid th Auto (RBC) [Ratio]on 06-17-2024 Erythrocyte distribution width (RBC) [Ratio] 17.7 % High 11.0-15.0 [facility] Hematocrit Auto (Bld) [Volum e fraction]on 06-17-2024 Hematocrit (Bld) [Volume fraction] 33.7 % Low 36.0-48.0 [facility] Hemoglobin [Mass/volume] in Bloodon 06-17-2024 Hemoglobin (Bld) [Mass/Vol] 9.8 g/dL Low 12.0-16.0 [facility] INR in Platelet poor plasma by Coagulation assayon 06-17-2024 INR Coag (PPP) [Relative time] 0.95 {INR} [facility] Comment on above: DESIRED INR:2.0-3.0 CONDITIONS NOT LISTED BELOW2.5-3.5 FOR PROSTHETIC HEART VALVE REPLACEMENT2.5-3.5 RECURRENT THROMBOSIS Laboratory - Chemistry and C hemistry - challengeon 06-17-2024 Cholesterol [Mass/Vol] 171 mg/dL <=200 [facility] Cholesterol in HDL [Mass/Vol] 66 mg/dL High 40-60 [facility] Comment on above: > or =60 mg/dl - LOW CARDIOVASCULAR RISK<40 mg/dl - HIGH CARDIOVASCULAR RISK Free T4 [Mass/Vol] 0.78 ng/dL 0.76-1.46 [facility] Triglyceride [Mass/Vol] 167 mg/dL High <=150 [facility] TSH Qn 6.061 m[IU]/L High 0.358-3.74 0 [facility] Laboratory - Hematology and Cell countson 06-17-2024 Immature granulocytes/100 WBC (Bld) 0.0 % 0.0-0.5 [facility] Leukocytes [#/volume] correc janell for nucleated erythrocytes in Blood by Automated counon 06-17-2024 WBC corrected for nucl RBC Auto (Bld) [#/Vol] 5.0 10 3/uL 4.0-11.0 [facility] Lymphocytes Auto (Bld) [#/Vo l]on 06-17-2024 Lymphocytes (Bld) [#/Vol] 1.9 10 3/uL 1.2-3.8 [facility] Lymphocytes/100 WBC Auto (Bl d)on 06-17-2024 Lymphocytes/100 WBC (Bld) 37.1 % 20.5-60.0 [facility] MCH Auto (RBC) [Entitic mass ]on 06-17-2024 MCH (RBC) [Entitic mass] 21.5 pg Low 26.7-34.0 [facility] MCHC Auto (RBC) [Mass/Vol]on 06-17-2024 MCHC (RBC) [Mass/Vol] 29.1 g/dL Low 29.9-35.2 [facility] MCV Auto (RBC) [Entitic vol] on 06-17-2024 MCV (RBC) [Entitic vol] 74.1 fL Low 81.0-99.0 [facility] Monocytes Auto (Bld) [#/Vol] on 06-17-2024 Monocytes (Bld) [#/Vol] 0.4 10 3/uL 0.3-0.8 [facility] Monocytes/100 WBC Auto (Bld) on 06-17-2024 Monocytes/100 WBC (Bld) 8.0 % 1.7-12.0 [facility] Neutrophils Auto (Bld) [#/Vo l]on 06-17-2024 Neutrophils (Bld) [#/Vol] 2.6 10 3/uL 1.4-6.5 [facility] Neutrophils/100 WBC Auto (Bl d)on 06-17-2024 Neutrophils/100 WBC (Bld) 51.7 % 43.0-75.0 [facility] No Panel Informationon 06-17 Eosinophils # (Auto) 0.1 10 3/uL 0.0-0.7 [facility] Immature Granulocyte # (Auto) 0.00 10 3/uL 0.00-0.03 [facility] Platelet mean volume Auto (B ld) [Entitic vol]on 06-17-2024 Platelet mean volume (Bld) [Entitic vol] 9.2 fL Low 9.5-13.5 [facility] Platelets Auto (Bld) [#/Vol] on 06-17-2024 Platelets (Bld) [#/Vol] 400 10 3/uL 150-450 [facility] Prothrombin time (PT)on 06-01 PT Coag (PPP) [Time] 10.1 s 9.0-11.6 [facility] RBC Auto (Bld) [#/Vol]on RBC (Bld) [#/Vol] 4.55 10 6/uL 4.20-5.40 [facility] Serum or plasma total choles terol/high density lipoprotein (HDL) cholesterol mass bridget 06-17-2024 Cholesterol.total/Chol esterol in HDL [Mass ratio] 2.6 {ratio} [facility] Comment on above: 3.3 - 4.4 LOW RISK4. 4 - 7.1 AVERAGE RISK7.1 - 11.0 MODERATE RISK>11.0 HIGH RISK Estimated glomerular filtrat ion rate (GFR) non- Americanon 01-11-2024 GFR/1.73 sq M.predicted among non-blacks MDRD (S/P/Bld) [Vol rate/Area] mL/min/{1.73_m2} >=60 [facility] Laboratory - Chemistry and C hemistry - challengeon 01-11-2024 Creatinine [Mass/Vol] 0.85 mg/dL 0.55-1.02 [facility] GFR/1.73 sq M.predicted MDRD (S/P/Bld) [Vol rate/Area] mL/min/{1.73_m2} >=60 [facility] XR hip RT min 2V(w/wo pelvis )*on 11-28-2023 XR hip RT min 2V(w/wo pelvis)* [place] [address] XRay Report Signed Patient: Nicol Smith MR#: [id number] 9 : 1960 Acct:[id number] Age/Sex: 63 / F ADM Date: 11/28/23 Loc: [facility] Room: Type: [facility] Attending Dr: David Mcfarland II, MD Copies [...] 1305 Signed By: 11/28/23 1306 Normal [facility] XR hip RT min 2V(w/wo pelvis )*on 10-17-2023 XR hip RT min 2V(w/wo pelvis)* [place] [address] XRay Report Signed Patient: Nicol Smith MR#: [id number] 9 : 1960 Acct:[id number] Age/Sex: 63 / F ADM Date: 10/17/23 Loc: [facility] Room: Type: [facility] Attending Dr: David Mcfarland II, MD Copies to: Davdi Mcfarland MD Ordering Provider: David Mcfarland MD [...] 1538 Signed By: 10/17/23 153 Normal [facility] XR hip RT min 2V(w/wo pelvis)* [facility] [employer] & Combine Other XR hip RT min 2V(w/wo pelvis)* [facility] [place] [facility] [employer] [facility] Other XR hip RT min 2V(w/wo pelvis)* [facility] [employer] Other XR hip RT min 2V(w/wo pelvis)* [place] [address] [facility] [employer] [facility] Other XR hip RT min 2V(w/wo pelvis)* XRay Report [employer] Other XR hip RT min 2V(w/wo pelvis)* Signed [facility] [employer] [facility] Other XR hip RT min 2V(w/wo pelvis)* Patient: Nicol Smith MR#: [id number] [employer] [facility] Other XR hip RT min 2V(w/wo pelvis)* 9 [employer] [facility] Other XR hip RT min 2V(w/wo pelvis)* : 1960 Acct:[id number] [employer] [facility] Other XR hip RT min 2V(w/wo pelvis)* Age/Sex: 63 / F ADM Date: 10/17/23 [employer] Other XR hip RT min 2V(w/wo pelvis)* Loc: [facility] Room: Type: [facility] [employer] Other XR hip RT min 2V(w/wo pelvis)* Attending Dr: David Mcfarland II, MD [facility] [employer] [facility] Other XR hip RT min 2V(w/wo pelvis)* Copies to: David Mcfarland MD [employer] Other XR hip RT min 2V(w/wo pelvis)* Ordering Provider: David Mcfarland MD [employer] Other XR hip RT min 2V(w/wo pelvis)* Date of Service: 10/17/23 [facility] [employer] [facility] Other XR hip RT min 2V(w/wo pelvis)* XR/XR hip RT min 2V(w/wo pelvis)*: Aftercare following joint replacement [employer] Other XR hip RT min 2V(w/wo pelvis)* surgery;Presence of [facility] [employer] Other XR hip RT min 2V(w/wo pelvis)* 2 views right hip with single view pelvis plain film [employer] Other XR hip RT min 2V(w/wo pelvis)* COMPARISON: 09/03/2023 [employer] Other XR hip RT min 2V(w/wo pelvis)* HISTORY: Status post right total hip arthroplasty [employer] Other XR hip RT min 2V(w/wo pelvis)* ACUTE FINDINGS: None [facility] Other XR hip RT min 2V(w/wo pelvis)* DEGENERATIVE CHANGE: Unremarkable [facility] Other XR hip RT min 2V(w/wo pelvis)* SOFT TISSUE FINDINGS: Unremarkable [facility] Other XR hip RT min 2V(w/wo pelvis)* JOINT EFFUSION: None [facility] Other XR hip RT min 2V(w/wo pelvis)* POSTOP CHANGES: Stable bilateral hip arthroplasties. [employer] [facility] Other XR hip RT min 2V(w/wo pelvis)* BONY MINERALIZATION: Adequate [facility] Other XR hip RT min 2V(w/wo pelvis)* XR/XR hip RT min 2V(w/wo pelvis)* [facility] [employer] [facility] Other XR hip RT min 2V(w/wo pelvis)* IMPRESSION: Stable right hip arthroplasty. [facility] Other XR hip RT min 2V(w/wo pelvis)* Impression dictated by: Kane Katz M.D.10/17/2023 3:39 PM [facility] Other XR hip RT min 2V(w/wo pelvis)* Dictation Location: [place] [address] [facility] Other XR hip RT min 2V(w/wo pelvis)* Transcribed By: PWS 10/17/23 [facility] [employer] Other XR hip RT min 2V(w/wo pelvis)* Dictated By: Kane Katz DO 10/17/23 [facility] [employer] Other XR hip RT min 2V(w/wo pelvis)* Signed By: [facility] [employer] [facility] Other XR hip RT min 2V(w/wo pelvis)* 10/17/23 [facility] Other ABO/Rh Retypeon 09-03-2023 ABO/RH Recheck Result Positive Normal [facility] Comment on above: Result Comment: PERF ORMED BY: [address] 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.] is taken. Gross examination only. CPT Codes 39555 Specimen: [id number] Received: 09/03/23 Status: GRACIELA Dominguez Num: [id number] Spec Type: Surgical Subm Dr: David Mcfarland MD Tissues: A Femoral Head - Other than Fracture (RT HIP) Procedures: HE/2, Gross/Micro L3, Decalcification Patient: Nicol Smith [id number] (Continued) Specimen: [id number] Received: 09/03/23 (Continued) Signed (signature on file) Dez Núñez MD 09/07/23 1345 Specimen: [id number] Received: 09/03/23 Status: GRACIELA Dominguez Num: [id number] Spec Type: Surgical Subm Dr: David Mcfarland MD Tissues: A Femoral Head - Other than Fracture (RT HIP) Procedures: HE/2, Gross/Micro L3, Decalcification Patient: RomeoNicol Gonsales [id number] (Continued) Specimen: [id number] Received: 09/03/23 (Continued) Maikol Photo Specimen: [id number] Received: 09/03/23 Status: GRACIELA Dominguez Num: [id number] Spec Type: Surgical Subm Dr: David Mcfarland MD Tissues: A Femoral Head - Other than Fracture (RT HIP) Procedures: HE/2, Gross/Micro L3, Decalcification Patient: Nicol Smith [id number] (Continued) Signed (signature on file) Dez Núñez MD 09/07/23 1345 Normal [facility] XR low pelvis w/RT x-table h ipon 09-03-2023 XR low pelvis w/RT x-table [place] [address] XRay Report Signed Patient: Nicol Smith MR#: [id number] 9 : 1960 Acct:[id number] Age/Sex: 63 / F ADM Date: 09/03/23 Loc: MD Room: Type: [facility] Attending Dr: David Mcfarland II, MD Copies to: David Mcfarland MD Ordering Provider: David Mcfarland MD Date of Service: 09/03/23 XR/XR low pelvis w/RT x-table hip: Total Hip, due in PACU ([id number]) XR/XR hip RT 1V: ANTERIOR HIP IN [...] Anna Hull M.D.09/03/2023 11:53 AM Dictation Location: [place] [address] Transcribed By: [facility] 09/03/23 1153 Dictated By: Anna Hull MD 09/03/23 1150 Signed By: 09/03/23 1153 Normal [facility] Automated erythrocytes count in urine sediment (number/area)Ordered By: David Mcfarland on 08-28-2023 RBC Auto (Urine sed) [#/Area] 1-2 [HPF] 0-4 [facility] Automated leukocytes count i n urine sediment (number/area)Ordered By: David Mcfarland on 08-28-2023 WBC Auto (Urine sed) [#/Area] 10-19 [HPF] 0-4 [facility] Basophils Auto (Bld) [#/Vol] Ordered By: David Mcfarland on 08-28-2023 Basophils (Bld) [#/Vol] 0.1 10*3/uL 0.0-0.2 [facility] Basophils/100 WBC Auto (Bld) Ordered By: David Mcfarland on 08-28-2023 Basophils/100 WBC (Bld) 1.1 % . [facility] Bilirubin Test strip Ql (U)O rdered By: David Mcfarland on 08-28-2023 Bilirubin Ql (U) Negative Negative [facility] Calcium [Mass/volume] in Ser um or PlasmaOrdered By: David Mcfarland on 08-28-2023 Calcium [Mass/Vol] 9.7 mg/dL 8.6-10.3 [facility] Carbon dioxide, total [Moles /volume] in Serum or PlasmaOrdered By: David Mcfarland on 08-28-2023 CO2 [Moles/Vol] 26.1 mmol/L 21.0-31.0 [facility] Chloride [Moles/volume] in S adela or PlasmaOrdered By: David Mcfarland on 08-28-2023 Chloride [Moles/Vol] 107 mmol/L 98-107 [facility] Color Auto (U)Ordered By: Arleth Mcfraland on 08-28-2023 Color (U) Yellow Yellow [facility] Creatinine [Mass/volume] in Serum or PlasmaOrdered By: David Mcfarland on 08-28-2023 Creatinine [Mass/Vol] 0.96 mg/dL 0.60-1.20 [facility] Eosinophils Auto (Bld) [#/Vo l]Ordered By: David Mcfarland on 08-28-2023 Eosinophils (Bld) [#/Vol] 0.1 10*3/uL 0.0-0.45 [facility] Eosinophils/100 WBC Auto (Bl d)Ordered By: David Mcfarland on 08-28-2023 Eosinophils/100 WBC (Bld) 1.0 % . [facility] Erythrocyte distribution wid th Auto (RBC) [Ratio]Ordered By: David Mcfarland on 08-28-2023 Erythrocyte distribution width (RBC) [Ratio] 17.5 % 11.9-15.3 [facility] Fructosamine [Moles/volume] in Serum or PlasmaOrdered By: David Mcfarland on 08-28-2023 Fructosamine [Moles/Vol] 205 umol/L 0-285 [facility] Comment on above: Published reference interval for apparently healthysubjects between age 20 and 60 is 205 - 285 umol/L and in apoorly controlled diabetic population is 228 - 563 umol/Lwith a mean of 396 umol/L.Performed at: - [facility] [id number] Director: Luis Mukherjee PhD, Phone: [phone] Glucose [Mass/volume] in Ser um or PlasmaOrdered By: David Mcfarland on 08-28-2023 Glucose [Mass/Vol] 98 mg/dL 70-100 [facility] Comment on above: ADA recommended refe rence rangeRandom Glucose Reference Range is dependent on time and content of last meal. Glucose of more than 200 mg/dL in a nonstressed, ambulatory subject supports the diagnosis of Diabetes Mellitus. Hematocrit Auto (Bld) [Volum e fraction]Ordered By: David Mcfarland on 08-28-2023 Hematocrit (Bld) [Volume fraction] 36.9 % 34.0-46.4 [facility] Hemoglobin [Mass/volume] in BloodOrdered By: David Mcfarland on 08-28-2023 Hemoglobin (Bld) [Mass/Vol] 11.9 g/dL 11.8-15.4 [facility] Ketones Auto test strip (U) [Mass/Vol]Ordered By: David Mcfarland on 08-28-2023 Ketones (U) [Mass/Vol] Negative Negative [facility] Laboratory - UrinalysisOrder ed By: David Mcfarland on 08-28-2023 Hyaline casts LM Ql (Urine sed) 0-8 [LPF] 0-8 [facility] Leukocytes [#/volume] correc janell for nucleated erythrocytes in Blood by Automated counOrdered By: David Mcfarland on 08-28-2023 WBC corrected for nucl RBC Auto (Bld) [#/Vol] 6.4 10*3/uL 3.8-11.6 [facility] Lymphocytes Auto (Bld) [#/Vo l]Ordered By: David Mcfarland on 08-28-2023 Lymphocytes (Bld) [#/Vol] 1.6 10*3/uL 1.00-4.8 [facility] Lymphocytes/100 WBC Auto (Bl d)Ordered By: David Mcfarland on 08-28-2023 Lymphocytes/100 WBC (Bld) 25.3 % . [facility] MCH Auto (RBC) [Entitic mass ]Ordered By: David Mcfarland on 08-28-2023 MCH (RBC) [Entitic mass] 25.0 pg 24.7-34.3 [facility] MCHC Auto (RBC) [Mass/Vol]Or dered By: David Mcfarland on 08-28-2023 MCHC (RBC) [Mass/Vol] 32.1 g/dL 32.0-35.0 [facility] MCV Auto (RBC) [Entitic vol] Ordered By: David Mcfarland on 08-28-2023 MCV (RBC) [Entitic vol] 78.0 fL 80-100 [facility] Monocytes Auto (Bld) [#/Vol] Ordered By: David Mcfarland on 08-28-2023 Monocytes (Bld) [#/Vol] 0.5 10*3/uL 0.0-0.8 [facility] Monocytes/100 WBC Auto (Bld) Ordered By: David Mcfarland on 08-28-2023 Monocytes/100 WBC (Bld) 7.6 % . [facility] Neutrophils Auto (Bld) [#/Vo l]Ordered By: David Mcfarland on 08-28-2023 Neutrophils (Bld) [#/Vol] 4.2 10*3/uL 1.8-7.7 [facility] Neutrophils/100 WBC Auto (Bl d)Ordered By: David Mcfarland on 08-28-2023 Neutrophils/100 WBC (Bld) 65.0 % . [facility] Nitrite Test strip Ql (U)Ord ered By: David Mcfarland on 08-28-2023 Nitrite Ql (U) Negative Negative [facility] No Panel InformationOrdered By: David Mcfarland on 08-28-2023 Estimated GFR (CKD-EPI) > 60.0 mL/Min [facility] Creatinine Clearance (Chem N/A [facility] Nucleated erythrocytes [Pres ence] in Blood by Automated countOrdered By: David Mcfarland on 08-28-2023 Nucleated RBC Auto Ql (Bld) 0.1 /100{WBC} 0-0.5 [facility] Platelet mean volume Auto (B ld) [Entitic vol]Ordered By: David Mcfarland on 08-28-2023 Platelet mean volume (Bld) [Entitic vol] 8.0 fL 6.3-10.7 [facility] Platelets Auto (Bld) [#/Vol] Ordered By: David Mcfarland on 08-28-2023 Platelets (Bld) [#/Vol] 387 10*3/uL 150-450 [facility] Potassium [Moles/volume] in Serum or PlasmaOrdered By: David Mcfarland on 08-28-2023 Potassium [Moles/Vol] 4.2 mmol/L 3.5-5.1 [facility] Protein Auto test strip (U) [Mass/Vol]Ordered By: David Mcfarland on 08-28-2023 Protein (U) [Mass/Vol] Negative Negative [facility] RBC Auto (Bld) [#/Vol]Ordere d By: David Mcfarland on 08-28-2023 RBC (Bld) [#/Vol] 4.74 10*6/uL 3.60-5.00 [facility] Serum or plasma anion gap de terminationOrdered By: David Mcfarland on 08-28-2023 Anion gap [Moles/Vol] 11.1 mmol/L 6.0-15.0 [facility] Sodium [Moles/volume] in Ser um or PlasmaOrdered By: David Mcfarland on 08-28-2023 Sodium [Moles/Vol] 140 mmol/L 136-145 [facility] Specific gravity Auto test s trip (U) [Rel density]Ordered By: David Mcfarland on 08-28-2023 Specific gravity (U) [Rel density] 1.020 1.001-1.03 0 [facility] Squamous epithelial cells de tection in urine sediment by light microscopyOrdered By: David Mcfarland on 08-28-2023 Epithelial cells.squamous LM Ql (Urine sed) 3-4 [HPF] 0-2 [facility] Urea nitrogen [Mass/volume] in Serum or PlasmaOrdered By: David Mcfarland on 08-28-2023 Urea nitrogen [Mass/Vol] 17 mg/dL 7-25 [facility] Urine bacteria detection by automated methodOrdered By: David Mcfarland on 08-28-2023 Bacteria Auto Ql (U) None seen None Seen [facility] Urine clarity by refractomet ry automatedOrdered By: David Mcfarland on 08-28-2023 Clarity Refractometry automated (U) Clear Clear [facility] Urine culture routineOrdered By: David Mcfarland on 08-28-2023 Bacteria identified Cx Nom (U) 2 Days [facility] Urine glucose measurement by automated test strip (mass/volume)Ordered By: David Mcfarland on 08-28-2023 Glucose Auto test strip (U) [Mass/Vol] Normal mg/dL Normal [facility] Urine hemoglobin detection b y automated test stripOrdered By: David Mcfarland on 08-28-2023 Hemoglobin Auto test strip Ql (U) Negative Negative [facility] Urine leukocyte esterase det ection by automated test stripOrdered By: David Mcfarland on 08-28-2023 Leukocyte esterase Auto test strip Ql (U) 3+ Negative [facility] Urobilinogen Auto test strip (U) [Mass/Vol]Ordered By: David Mcfarland on 08-28-2023 Urobilinogen (U) [Mass/Vol] Normal mg/dL Normal [facility] WBC Auto (Bld) [#/Vol]Ordere d By: David Mcfarland on 08-28-2023 WBC (Bld) [#/Vol] 6.4 10*3/uL 3.8-11.6 [facility] pH Auto test strip (U)Ordere d By: David Mcfarland on 08-28-2023 pH (U) 5.5 [pH] 5.0-9.0 [facility] TSHon 01-19-2023 TSH 5.502 uIU/mL Critically high 0.358-3.74 0 [facility] Comment on above: Performed By: #### T ####[facility] [address] [place], [place] [address]YaMiguel Darrick Cao GTT 2 HRon 12-12-2022 Glucose [Mass/Vol] 117 mg/dL Critically high 74-106 [facility] Comment on above: Performed By: #### G TT2 ####[facility] [address] [place], [place] [address]Dz. Darrick Coa Glucose [Mass/Vol] 227 mg/dL Normal [facility] Comment on above: Performed By: #### G TT2 ####[facility] [address] [place], [place] [address]Zw. Darrick Cao Glucose [Mass/Vol] 121 mg/dL Normal [facility] Comment on above: Performed By: #### G TT2 ####[facility] [address] [place], [place] [address]Zp. Adryyakov Cao TSHon 12-12-2022 TSH 6.852 uIU/mL Critically high 0.358-3.74 0 [facility] Comment on above: Performed By: #### P OCGLUC #### [facility] [address] [place], [place] [address] Dr. Darrick Cao Outside Colonoscopyon 2022 Outside Colonoscopy [id number]#[id number]:12 7 Normal [facility] Reminderson 12-07-2022 Reminders - From: Yu Waters LPN To: N - Clinical; Sent: 12/07/2022 08:47:38 EST Show up: 11/08/2032 07:00:00 EST Subject: colonoscopy recall Due Date/Time: 12/06/2032 07:00:00 EST Reminder/Recall Patient is due for screening colonoscopy 12/06/2032. Normal [facility] Consent for Procedure/Surger yon 11-09-2022 Consent for Procedure/Surgery [id number]#1.00CD:12 7 Normal [facility] Consent for Procedure/Surgery [id number]#[id number]:12 7 Normal [facility] Facesheeton 11-09-2022 Facesheet [id number]#[id number]:12 7 Normal [facility] Ambulatory Visit Summaryon 0 11-08-2022 Ambulatory [...] Screening for malignant neoplasm of colon Normal [facility] MG MAMM SCREEN 3D BONNIE CADon 11-03-2022 MG MAMM SCREEN 3D BONNIE CAD Patient: NICOL SMITH Exam Date: 11/03/2022 : 1960 Gender:F Ordering : DR FRIEDA LOCKE . Admission #: [id number] Family : Order #: [id number] CLICK HERE TO VIEW EXAM RADIOLOGY REPORT [...] uterine cancer at age 52. LOCATION: [facility] BREAST COMPOSITION: Scattered areas fibroglandular density. FINDINGS: [...] MD on 11/03/2022 at 11:04 Normal [facility] XR DEXA BONE DENSITYon 11-03 XR DEXA [...] by: ARIELA SCHWAB Date: 2022-11-03 11:11 Normal [facility] Comprehensive Metabolic Pane yuli 10-30-2022 Urea nitrogen [Mass/Vol] 20 mg/dL [facility] [facility] [employer] Other Comprehensive Metabolic Panel [facility] [employer] Other Comprehensive Metabolic Panel >60 [employer] Other Comprehensive Metabolic Panel 4.2 [employer] [facility] [employer] Other Albumin [Mass/Vol] 3.7 g/dL Normal 3.4-5.0 [facility] [facility] [employer] Other Comment on above: Performed By: #### T SH, CMP, LIPID ####[facility] [address] [place] [address]Dr. Darrick Cao Albumin/Globulin [Mass ratio] 0.9 {ratio} Normal [employer] [facility] [employer] Other Comment on above: Performed By: #### T SH, CMP, LIPID ####[facility] [address] [place] [id number]. Darrick Cao ALP [Catalytic activity/Vol] 112 U/L Normal 46-116 [facility] [employer] Other Comment on above: Performed By: #### T SH, CMP, LIPID ####[facility] [address] [place] [address]Dr. Darrick Cao ALT [Catalytic activity/Vol] 34 U/L Normal 14-59 [facility] [employer] Other Comment on above: Performed By: #### T SH, CMP, LIPID ####[facility] [address] [place], [place] [address]Rh. Darrick Cao AST [Catalytic activity/Vol] 17 U/L Normal 15-37 [facility] [employer] Other Comment on above: Performed By: #### T SH, CMP, LIPID ####[facility] [address] [place], [place] [address]Sn. Darrick Cao Bilirubin [Mass/Vol] 0.4 mg/dL Normal 0.2-1.0 [facility] [employer] Other Comment on above: Performed By: #### T SH, CMP, LIPID ####[facility] [address] [place] [address]Dr. Darrick Cao Calcium [Mass/Vol] 9.2 mg/dL Normal 8.5-10.1 [facility] [employer] Other Comment on above: Performed By: #### T SH, CMP, LIPID ####[facility] [address] [place], [place] [address]Dr. Darrick Cao Chloride [Moles/Vol] 105 mmol/L Normal 98-107 [facility] [employer] Other Comment on above: Performed By: #### T SH, CMP, LIPID ####[facility] [address] [place] [id number]. Darrick Cao CO2 [Moles/Vol] 27.0 mmol/L Normal 21.0-32.0 [facility] [employer] Other Comment on above: Performed By: #### T SH, CMP, LIPID ####[facility] [address] [place] [id number]. Darrick Cao Creatinine [Mass/Vol] 0.86 mg/dL Normal 0.55-1.02 [facility] [employer] Other Comment on above: Performed By: #### T SH, CMP, LIPID ####[facility] [address] [place], [place] [address]Dr. Darrick Cao Glucose [Mass/Vol] 114 mg/dL Critically high 74-106 [facility] [employer] Other Comment on above: Performed By: #### T SH, CMP, LIPID ####[facility] [address] [place] [address]Dr. Darrick Cao Potassium [Moles/Vol] 3.9 mmol/L Normal 3.5-5.1 [facility] [employer] Other Comment on above: Performed By: #### T SH, CMP, LIPID ####[facility] [address] [place] [address]Dr. Darrick Cao Protein [Mass/Vol] 7.9 g/dL Normal 6.4-8.2 [facility] [employer] Other Comment on above: Performed By: #### T SH, CMP, LIPID ####[facility] [address] [place], [place] [address]Dr. Darrick Cao Sodium [Moles/Vol] 143 mmol/L Normal 136-145 [facility] [employer] Other Comment on above: Performed By: #### T SH, CMP, LIPID ####[facility] [address] [place] [address]Dr. Darrick Cao FREE T4on 10-30-2022 Free T4 [Mass/Vol] 0.77 ng/dL Normal 0.76-1.46 [facility] Comment on above: Performed By: #### F T4 ####[facility] [address] [place] [id number]. Darrick Cao LIPID PROFILEon 10-30-2022 CHOL-HDL RATIO NORM SEE BELOW Normal [facility] Comment on above: Result Comment: 3.3 - 4.4 LOW RISK 4.4 - 7.1 AVERAGE RISK 7.1 - 11.0 MODERATE RISK >11.0 HIGH RISK Performed By: #### T SH, CMP, LIPID ####[facility] [address] [place] [address]Dr. Darrick Cao Cholesterol in LDL [Mass/Vol] 84.6 mg/dL Normal [facility] Comment on above: Performed By: #### T SH, CMP, LIPID ####[facility] [address] [place], [place] [address]Sp. Darrick Cao HDL NORMAL > or = 60 mg/dl - LO W CARDIOVASCULAR RISK <40 mg/dl - HIGH CARDIOVASCULAR RISK Normal [facility] Comment on above: Performed By: #### T SH, CMP, LIPID ####[facility] [address] [place], [place] [address]Kx. Darrick Cao LDL CALC NORMAL SEE BELOW Normal [facility] Comment on above: Result Comment: <100 mg/dl OPTIMAL 100 - 129 mg/dl NEAR OR ABOVE OPTIMAL 130 - 159 mg/dl BORDERLINE HIGH 160 - 189 mg/dl HIGH >190 mg/dl VERY HIGH Performed By: #### T JASON, CMP, LIPID ####[facility] [address] [place], [place] [address]Wh. Darrick Cao Triglyceride [Mass/Vol] 222 mg/dL Critically high <=150 [facility] Comment on above: Performed By: #### T JASON, CMP, LIPID ####[facility] [address] [place], [place] [address]Hx. Darrick Cao VLDL CALC 44.4 mg/dL Normal [facility] Comment on above: Performed By: #### T JASON, CMP, LIPID ####[facility] [address] [place], [place] [address]Hd. Darrick Cao Lipid Panelon 10-30-2022 Cholesterol in LDL Elph Qn 84.6 [employer] Other Lipid Panel 222 [employer] Other Lipid Panel 44.4 [employer] Other Cholesterol [Mass/Vol] 185 mg/dL Normal <=200 No rt [employer] Other Comment on above: Performed By: #### T SH, CMP, LIPID ####[facility] [address] [place], [place] [address]Oz. Darrick Cao Cholesterol in HDL [Mass/Vol] 56 mg/dL Normal 40-60 [employer] Other Comment on above: Performed By: #### T SH, CMP, LIPID ####[facility] [address] [place] [id number] Cao Cholesterol.total/Chol esterol in HDL [Mass ratio] 3.3 {ratio} Normal [employer] Other Comment on above: Performed By: #### T SH, CMP, LIPID ####[facility] [address] [place] [address]DrMiguel Cao PROF 14(COMP METB)on 023 Anion gap [Moles/Vol] 14.9 mmol/L Normal [facility] Comment on above: Performed By: #### T JASON, CMP, LIPID ####[facility] [address] [place] [address]DrMiguel Cao EGFR-AF MOROCCAN >60 Normal >=60 [facility] [place] Comment on above: Performed By: #### T JASON, CMP, LIPID ####[facility] [address] [place] [address]DrMiguel Cao EGFR-NON AF MOROCCAN >60 Normal >=60 [facility] Comment on above: Performed By: #### T JASON, CMP, LIPID ####[facility] [address] [place] [address]DrMiguel Cao Globulin (S) [Mass/Vol] 4.2 g/dL Normal [facility] Comment on above: Performed By: #### T JASON, CMP, LIPID ####[facility] [address] [place] [id number] Cao Urea nitrogen [Mass/Vol] 20.0 mg/dL Critically high 7.0-18.0 [facility] Comment on above: Performed By: #### T SH, CMP, LIPID ####[facility] [address] [place] [address]DrMiguel Cao Urea nitrogen/Creatinine [Mass ratio] 23.3 mg/mg Normal [facility] Comment on above: Performed By: #### T SH, CMP, LIPID ####[facility] [address] [place] [phone] Cao TSHon 10-30-2022 TSH 6.415 uIU/mL Critically high 0.358-3.74 0 [facility] Comment on above: Performed By: #### T SH, CMP, LIPID ####[facility] [address] [place], [place] [address]YcMiguel Cao Thyroid Stim Hormone w/Rflxo n 10-30-2022 Thyroid Stim Hormone w/Rflx 6.415 [employer] Other VITAMIN B12on 10-30-2022 Cobalamin (Vitamin B12) [Mass/Vol] 664.0 pg/mL Normal 193.0-986. 0 [facility] Comment on above: Performed By: #### V ITB12 #### [facility] [address] [place], [place] [address] Dr. Darrick Cao Vitamin B12on 10-30-2022 Cobalamin (Vitamin B12) [Mass/Vol] 664 pg/mL [employer] Other Automated erythrocytes count in urine sediment (number/area)Ordered By: Waqas Pierce on 10-23-2022 RBC Auto (Urine sed) [#/Area] 0-1 [HPF] 0-4 [facility] Automated leukocytes count i n urine sediment (number/area)Ordered By: Waqas Pierce on 10-23-2022 WBC Auto (Urine sed) [#/Area] 10-19 [HPF] 0-4 [facility] Bilirubin Test strip Ql (U)O rdered By: Waqas Pierce on 10-23-2022 Bilirubin Ql (U) Negative Negative [facility] Color Auto (U)Ordered By: Shay Pierce on 10-23-2022 Color (U) Yellow Yellow [facility] Ketones Auto test strip (U) [Mass/Vol]Ordered By: Waqas Pierce on 10-23-2022 Ketones (U) [Mass/Vol] Negative Negative [facility] Laboratory - UrinalysisOrder ed By: Waqas Pierce on 10-23-2022 Hyaline casts LM Ql (Urine sed) 0-8 [LPF] 0-8 [facility] Nitrite Test strip Ql (U)Ord ered By: Waqas Pierce on 10-23-2022 Nitrite Ql (U) Negative Negative [facility] Protein Auto test strip (U) [Mass/Vol]Ordered By: Waqas Pierce on 10-23-2022 Protein (U) [Mass/Vol] Negative Negative [facility] Specific gravity Auto test s trip (U) [Rel density]Ordered By: Waqas Pierce on 10-23-2022 Specific gravity (U) [Rel density] 1.016 1.001-1.03 0 [facility] Squamous epithelial cells de tection in urine sediment by light microscopyOrdered By: Waqas Pierce on 10-23-2022 Epithelial cells.squamous LM Ql (Urine sed) 5-9 [HPF] 0-2 [facility] Urine Cultureon 10-23-2022 Bacteria identified Cx Nom (U) [employer] Other Urine bacteria detection by automated methodOrdered By: Waqas Pierce on 10-23-2022 Bacteria Auto Ql (U) None seen None Seen [facility] Urine clarity by refractomet ry automatedOrdered By: Waqas Pierce on 10-23-2022 Clarity Refractometry automated (U) Clear Clear [facility] Urine glucose measurement by automated test strip (mass/volume)Ordered By: Waqas Pierce on 10-23-2022 Glucose Auto test strip (U) [Mass/Vol] Normal mg/dL Normal [facility] Urine hemoglobin detection b y automated test stripOrdered By: Waqas Pierce on 10-23-2022 Hemoglobin Auto test strip Ql (U) Negative Negative [facility] Urine leukocyte esterase det ection by automated test stripOrdered By: Waqas Pierce on 10-23-2022 Leukocyte esterase Auto test strip Ql (U) 3+ Negative [facility] Urobilinogen Auto test strip (U) [Mass/Vol]Ordered By: Waqas Pierce on 10-23-2022 Urobilinogen (U) [Mass/Vol] Normal mg/dL Normal [facility] pH Auto test strip (U)Ordere d By: Waqas Pierce on 10-23-2022 pH (U) 6.0 [pH] 5.0-9.0 [facility] A1C HEMOGLOBINon 10-13-2022 HbA1c (Bld) [Mass fraction] 5.9 % [facility] [employer] Other HbA1c (Bld) [Mass fraction]o n 10-13-2022 A1C HEMOGLOBIN [facility] [employer] Other XR FOOT LT MIN 3 VIEWSon [...] by: ALEX RYAN Date: 2022-09-20 16:40 Normal [facility] XR LSPINE 2_3 VIEWSon 2021 XR LSPINE 2_3 VIEWS EXAMINATION: XR LSPI NE 2_3 VIEWS HISTORY: Low back pain COMPARISON: 09/26/2019 FINDINGS: BONES: Mild dextrocurvature. Moderate to severe spondylosis and facet osteoarthropathy DISC SPACES: Multilevel disc space narrowing most significant at L5-S1 PARASPINOUS: Negative. No paraspinous abnormality is seen. OTHER: Severe right hip osteoarthropathy with wnmc-pc-lnzp articulation. Left hip arthroplasty IMPRESSION: Moderate to severe degenerative changes Electronically authenticated by: SHAWNEE KELLY Date: 2022-08-20 11:47 Normal [facility] PAP ACOG PANEL 2: 30 to 65on 06-13-2022 . . Normal [facility] Comment on above: Result Comment: Perf ormed at: WB Performed By: #### [id number] ####[facility] [address] [place], [place] [address]EhMiguel Cao Age Gdln ACOG Testing 30-65 Normal [facility] Comment on above: Performed By: #### [id number] ####[facility] [address] [place] [address]Dr. Darrick Cao DIAGNOSIS: Comment Normal [facility] Comment on above: Result Comment: NEGA TIVE FOR INTRAEPITHELIAL LESION OR MALIGNANCY. THIS SPECIMEN WAS RESCREENED PART OF OUR [employer] OPERATOR PROGRAM. Performed at: WB Performed By: #### [id number] ####[facility] [address] [place], [place] [address]DrMiguel Cao HPV Aptima Negative Normal Negative [facility] Comment on above: Result Comment: This nucleic acid amplification test detects fourteen high-risk HPV types (16,18,31,33,35,39,45,51,52,56,58,59,66,68) without differentiation. Performed at: =G Performed By: #### [id number] ####[place] [address]Dr. Darrick Cao Methodology: Comment Normal [facility] Comment on above: Result Comment: This liquid based ThinPrep(R) pap test was screened with the use of an image guided system. Performed at: WB Performed By: #### [id number] ####[facility] [address] [place], [place] [address]Dr. Darrick Cao Note: Comment Normal [facility] Comment on above: Result Comment: The Pap smear is a screening test designed to aid in the detection of premalignant and malignant conditions of the uterine cervix. It is not a diagnostic procedure and should not be used as the sole means of detecting cervical cancer. Both false-positive and false-negative reports do occur. . Performed at: WB Performed By: #### [id number] ####[facility] [address] [place], [place] [address]Dr. Darrick Cao Performed by: Comment Normal [facility] Comment on above: Result Comment: Solange Ann, Forestry Foreman (ASCP) Performed at: WB Performed By: #### [id number] ####[facility] [address] [place], [place] [address]DrMiguel Cao QC reviewed by: Comment Normal [facility] Comment on above: Result Comment: Navi Rush, Supervisory Forestry Foreman (ASCP) Performed at: WB Performed By: #### [id number] ####[facility] [address] [place], [place] [address]UsMiguel Darrick Cao Specimen adequacy: Comment Normal The [facility] Comment on above: Result Comment: Sati sfactory for evaluation. Endocervical and/or squamous metaplastic cells (endocervical component) are present. Performed at: WB Performed By: #### [id number] ####[facility] [address] [place], [place] [address]BwMiguel Darrick Cao US PELVIS AND TRANSVAGon US [...] ARIELA SCHWAB Date: 2022-06-13 14:50 Normal The [facility] ACID FAST SMEAR AND CXon Acid Fast Culture Negative Normal The [facility] Comment on above: Result Comment: No a liliya fast bacilli isolated after 6 weeks. Performed By: #### A FB ####[facility] [address] [place], [place] [address]QcMiguel Darrick Cao Acid Fast Smear Negative Normal [facility] Comment on above: Performed By: #### A FB ####[facility] [address] [place] [address]Dr. Darrick Cao [employer] Specimen Processing Tissue Grinding Normal [facility] Comment on above: Performed By: #### A FB ####[facility] [address] [place] [address]Dr. Darrick Cao FUNGAL CULTUREon 05-23-2022 Fungus (Mycology) Culture Final report Normal [facility] Comment on above: Performed By: #### C XFUN ####[facility] [address] [place] [address]Dr. Darrick Cao Fungus Stain Final report Normal [facility] Comment on above: Performed By: #### C XFUN ####[facility] [address] [place], [place] [address]Dr. Darrick Cao Result 1 Comment Normal [facility] Comment on above: Result Comment: MAYE/ Calcofluor preparation: no fungus observed. Performed By: #### C XFUN ####[facility] [address] [place], [place] [address]Dr. Darrick Cao Result Comment: No y east or mold isolated after 4 weeks. WOUND CULTUREon 04-28-2022 Bacteria identified Aer cx Nom (Unsp spec) Final report Normal [facility] Comment on above: Performed By: #### C XWND #### [facility] [address] [place] [address] Dr. Darrick Cao Result 1 Comment Normal [facility] Comment on above: Result Comment: No g rowth in 36 - 48 hours. Performed By: #### C XWND #### [facility] [address] [place] [address] Dr. Darrick Cao CULTURE WOUNDon 04-26-2022 CULTURE [...] S F Vancomycin 1 S F Normal [facility] Comment on above: Performed By: #### W OUNDCX ####[facility] [address] [place] [address]Dr. Darrick Cao CBC AUTO DIFFon 04-25-2022 BASO # 0.0 103/ul Normal 0.0-0.1 [facility] Comment on above: Performed By: #### C XWND #### [facility] [address] [place] [address] Dr. Darrick Cao Basophils/100 WBC (Bld) 0.5 % Normal 0.2-2.0 [facility] Comment on above: Performed By: #### C XWND #### [facility] [address] [place] [address] Dr. Darrick Cao EO # 0.1 103/ul Normal 0.0-0.7 [facility] Comment on above: Performed By: #### C XWND #### [facility] [address] [place] [address] Dr. Darrick Cao Eosinophils/100 WBC (Bld) 1.1 % Normal 0.9-7.0 [facility] Comment on above: Performed By: #### C XWND #### [facility] [address] [place] [address] Dr. Darrick Cao Erythrocyte distribution width (RBC) [Ratio] 15.8 % Critically high 11.0-15.0 [facility] Comment on above: Performed By: #### C XWND #### [facility] [address] [place] [address] Dr. Darrick Cao Hematocrit (Bld) [Volume fraction] 31.7 % Critically low 36.0-48.0 [facility] Comment on above: Performed By: #### C XWND #### [facility] [address] [place] [address] Dr. Darrick Cao Hemoglobin (Bld) [Mass/Vol] 10.1 g/dL Critically low 12.0-16.0 [facility] Comment on above: Performed By: #### C XWND #### [facility] [address] [place] [address] Dr. Darrick Cao IG # 0.02 10e3/ul Normal 0.00-0.03 [facility] Comment on above: Performed By: #### C XWND #### [facility] [address] [place] [address] Dr. Darrick Cao IG % 0.3 % Normal 0.0-0.5 [facility] Comment on above: Performed By: #### C XWND #### [facility] [address] [place] [address] Dr. Darrick Cao LYMPH # 1.8 103/ul Normal 1.2-3.8 [facility] Comment on above: Performed By: #### C XWND #### [facility] [address] [place] [address] Dr. Darrick Cao Lymphocytes/100 WBC (Bld) 24.3 % Normal 20.5-60.0 [facility] Comment on above: Performed By: #### C XWND #### [facility] [address] [place] [address] Dr. Darrick Cao MANUAL DIFF REQ NO Normal [facility] Comment on above: Performed By: #### C XWND #### [facility] [address] [place] [address] Dr. Darrick Cao MCH (RBC) [Entitic mass] 28.0 pg Normal 26.7-34.0 [facility] Comment on above: Performed By: #### C XWND #### [facility] [address] [place] [address] Dr. Darrick Cao MCHC (RBC) [Mass/Vol] 31.9 g/dL Normal 29.9-35.2 [facility] Comment on above: Performed By: #### C XWND #### [facility] [address] [place] [address] Dr. Darrick Cao MCV (RBC) [Entitic vol] 87.8 fL Normal 81.0-99.0 [facility] Comment on above: Performed By: #### C XWND #### [facility] [address] [place] [address] Dr. Darrick Cao MONO # 0.5 103/ul Normal 0.3-0.8 [facility] Comment on above: Performed By: #### C XWND #### [facility] [address] [place] [address] Dr. Darrick Cao Monocytes/100 WBC (Bld) 7.2 % Normal 1.7-12.0 [facility] Comment on above: Performed By: #### C XWND #### [facility] [address] [place] [address] Dr. Darrick Cao NEUT # 5.0 103/ul Normal 1.4-6.5 [facility] Comment on above: Performed By: #### C XWND #### [facility] [address] [place] [address] Dr. Darrick Cao Neutrophils/100 WBC (Bld) 66.6 % Normal 43.0-75.0 [facility] Comment on above: Performed By: #### C XWND #### [facility] [address] [place] [address] Dr. Darrick Cao Platelet mean volume (Bld) [Entitic vol] 9.6 fL Normal 9.5-13.5 [facility] Comment on above: Performed By: #### C XWND #### [facility] [address] [place] [address] Dr. Darrick Cao PLT 295 103/ul Normal 150-450 [facility] Comment on above: Performed By: #### C XWND #### [facility] [address] [place] [address] Dr. Darrick Cao RBC 3.61 106/ul Critically low 4.20-5.40 [facility] Comment on above: Performed By: #### C XWND #### [facility] [address] [place] [address] Dr. Darrick Cao WBC 7.5 103/ul Normal 4.0-11.0 [facility] Comment on above: Performed By: #### C XWND #### [facility] [address] [place] [address] Dr. Darrick Cao ER URINE PROFILEon 2 Bilirubin Ql (U) Negative Normal NEGATIVE The [facility] Comment on above: Performed By: #### U MICRO, ERUR ####[facility] [address] [place] [address]Dr. Darrick Cao Clarity (U) CLEAR Normal CLEAR [facility] Comment on above: Performed By: #### U MICRO, ERUR ####[facility] [address] [place] [address]Dr. Darrick Cao Color (U) LT. YELLOW Normal YELLOW [facility] Comment on above: Performed By: #### U MICRO, ERUR ####[facility] [address] [place], [place] [address]Dr. Darrick CHAPA A micrscopic examina tion will be performed if indicated. Normal The [facility] Comment on above: Performed By: #### U MICRO, ERUR ####[facility] [address] [place], [place] [address]Dr. Darrick Cao Glucose Ql (U) Negative Normal NEGATIVE The [facility] Comment on above: Performed By: #### U MICRO, ERUR ####[facility] [address] [place], [place] [address]Dr. Darrick Cao Hemoglobin Ql (U) SMALL Abnormal NEGATIVE The [facility] Comment on above: Performed By: #### U MICRO, ERUR ####[facility] [address] [place], [place] [address]Dr. Darrick Cao Ketones Ql (U) Negative Normal NEGATIVE The [facility] Comment on above: Performed By: #### U MICRO, ERUR ####[facility] [address] [place], [place] [address]Dr. Darrick Cao LEUKOCYTES Negative Normal NEGATIVE The [facility] Comment on above: Performed By: #### U MICRO, ERUR ####[facility] [address] [place], [place] [address]Dr. Darrick Cao Nitrite Ql (U) Negative Normal NEGATIVE The [facility] Comment on above: Performed By: #### U MICRO, ERUR ####[facility] [address] [place] [address]Dr. Darrick Cao pH (U) 6.0 [pH] Normal 5-9 [facility] Comment on above: Performed By: #### U MICRO, ERUR ####[facility] [address] [place] [address]Dr. Darrick Cao SPEC GRAVITY 1.020 Normal 1.005-<=1. 025 [facility] Comment on above: Performed By: #### U MICRO, ERUR ####[facility] [address] [place] [address]Dr. Darrick Cao UA PROTEIN Negative Normal NEGATIVE/ TRACE [facility] Comment on above: Performed By: #### U MICRO, ERUR ####[facility] [address] [place] [address]Dr. Darrick Cao UR MICRO IND INDICATED Normal [facility] Comment on above: Performed By: #### U MICRO, ERUR ####[facility] [address] [place], [place] [address]Dr. Darrick Cao Urobilinogen Qn (U) 0.2 {Larissa'U}/dL Normal 0.2 - 1. 0 [facility] Comment on above: Performed By: #### U MICRO, ERUR ####[facility] [address] [place] [address]DrMiguel Cao POINT OF CARE GLUCOSEon 04-01 Glucose [Mass/Vol] 118 mg/dL Critically high 74-106 [facility] Comment on above: Performed By: #### P OCGLUC ####[facility] [address] [place] [address]DrMiguel Cao PROF 14(COMP METB)on 022 Albumin [Mass/Vol] 2.9 g/dL Critically low 3.4-5.0 [facility] Comment on above: Performed By: #### P OCGLUC #### [facility] [address] [address] [address] Darrick Cao Albumin/Globulin [Mass ratio] 0.8 {ratio} Normal [facility] Comment on above: Performed By: #### P OCGLUC #### [facility] [address] [place] [address] [address] Darrick Cao ALP [Catalytic activity/Vol] 113 U/L Normal 46-116 [facility] Comment on above: Performed By: #### P OCGLUC #### [facility] [address] [place] [address] [address] Darrick Cao ALT [Catalytic activity/Vol] 56 U/L Normal 14-59 [facility] Comment on above: Performed By: #### P OCGLUC #### [facility] [address] [place] [address] [address] Darrick Cao Anion gap [Moles/Vol] 8.8 mmol/L Normal [facility] Comment on above: Performed By: #### P OCGLUC #### [facility] [address] [place] [address] [address] Darrick Cao AST [Catalytic activity/Vol] 30 U/L Normal 15-37 [facility] Comment on above: Performed By: #### P OCGLUC #### [facility] [address] [place] [address] [address] Darrick Cao Bilirubin [Mass/Vol] 0.3 mg/dL Normal 0.2-1.0 [facility] Comment on above: Performed By: #### P OCGLUC #### [facility] [address] [place] [address] [address] Darrick Cao Calcium [Mass/Vol] 8.6 mg/dL Normal 8.5-10.1 [facility] Comment on above: Performed By: #### P OCGLUC #### [facility] [address] [place] [address] [address] Darrick Cao Chloride [Moles/Vol] 105 mmol/L Normal 98-107 [facility] Comment on above: Performed By: #### P OCGLUC #### [facility] [address] [place] [address] [address] Darrick Cao CO2 [Moles/Vol] 30.4 mmol/L Normal 21.0-32.0 [facility] [place] Comment on above: Performed By: #### P OCGLUC #### [facility] [address] [place] [address] [address] Darrick Cao Creatinine [Mass/Vol] 0.82 mg/dL Normal 0.55-1.02 [facility] Comment on above: Performed By: #### P OCGLUC #### [facility] [address] [place] [address] [address] Darrick Cao EGFR-AF MOROCCAN >60 Normal >=60 [facility] Comment on above: Performed By: #### P OCGLUC #### [facility] [address] [place] [address] [address] Darrick Cao EGFR-NON AF MOROCCAN >60 Normal >=60 [facility] Comment on above: Performed By: #### P OCGLUC #### [facility] [address] [place] [address] [address] Darrick Cao Globulin (S) [Mass/Vol] 3.6 g/dL Normal [facility] Comment on above: Performed By: #### P OCGLUC #### [facility] [address] [place] [address] [address] Darrick Cao Glucose [Mass/Vol] 103 mg/dL Normal 74-106 The [facility] Comment on above: Performed By: #### P OCGLUC #### [facility] [address] [place] [address] [address] Darrick Cao Potassium [Moles/Vol] 4.2 mmol/L Normal 3.5-5.1 [facility] Comment on above: Performed By: #### P OCGLUC #### [facility] [address] [place] [address] [address] Darrick Cao Protein [Mass/Vol] 6.5 g/dL Normal 6.4-8.2 The [facility] Comment on above: Performed By: #### P OCGLUC #### [facility] [address] [place] [address] [address] Darrick Cao Sodium [Moles/Vol] 140 mmol/L Normal 136-145 The [facility] Comment on above: Performed By: #### P OCGLUC #### [facility] [address] [place] [address] [address] Darrick Cao Urea nitrogen [Mass/Vol] 11.0 mg/dL Normal 7.0-18.0 [facility] Comment on above: Performed By: #### P OCGLUC #### [facility] [address] [place] [address] [address] Darrick Cao Urea nitrogen/Creatinine [Mass ratio] 13.4 mg/mg Normal [facility] Comment on above: Performed By: #### P OCGLUC #### [facility] [address] [place] [address] [address] Darrick Cao URINE MICROSCOPIC ONLYon BACTERIA NONE SEEN Normal NONE SEEN The [facility] Comment on above: Performed By: #### U MICRO, ERUR ####[facility] [address] [place] [address]DrMiguel Cao Bacteria identified Cx Nom (U) NOT INDICATED Normal [facility] Comment on above: Performed By: #### U MICRO, ERUR ####[facility] [address] [place] [address]Dr. Darrick Cao CAST NONE SEEN Normal NONE SEEN The [facility] Comment on above: Performed By: #### U MICRO, ERUR ####[facility] [address] [place] [address]DrMiguel Cao Crystals LM Nom (Urine sed) NONE SEEN Normal NONE SEEN The [facility] Comment on above: Performed By: #### U MICRO, ERUR ####[facility] [address] [place] [address]Dr. Darrick Cao Epithelial cells LM Ql (Urine sed) RARE Normal NONE SEEN /RARE The [facility] Comment on above: Performed By: #### U MICRO, ERUR ####[facility] [address] [place] [address]Dr. Darrick Cao MUCOUS NONE SEEN Normal NONE SEEN The [facility] Comment on above: Performed By: #### U MICRO, ERUR ####[facility] [address] [place] [address]Dr. Darrick Cao RBC 5-10 Abnormal 0-2 [facility] Comment on above: Performed By: #### U MICRO, ERUR ####[facility] [address] [place], [place] [address]FrDr. Darrick Cao WBC 0-2 Abnormal NONE SEEN The [facility] Comment on above: Performed By: #### U MICRO, ERUR ####[facility] [address] [place], [place] [address]YhDr. Darrick Cao XR CHEST 2 Von 04-25-2022 [...] AMY FOWLER Date: 2022-04-25 20:07 Normal The [facility] CBC AUTO DIFFon 04-24-2022 BASO # 0.1 103/ul Normal 0.0-0.1 [facility] Comment on above: Performed By: #### P OCGLUC #### [facility] [address] [place] [address] [address] Darrick Cao Basophils/100 WBC (Bld) 0.8 % Normal 0.2-2.0 [facility] Comment on above: Performed By: #### P OCGLUC #### [facility] [address] [place] [address] [address] Darrick Cao EO # 0.1 103/ul Normal 0.0-0.7 [facility] Comment on above: Performed By: #### P OCGLUC #### [facility] [address] [place] [address] [address] Darrick Cao Eosinophils/100 WBC (Bld) 1.9 % Normal 0.9-7.0 [facility] Comment on above: Performed By: #### P OCGLUC #### [facility] [address] [place] [address] [address] Darrick Cao Erythrocyte distribution width (RBC) [Ratio] 15.6 % Critically high 11.0-15.0 [facility] Comment on above: Performed By: #### P OCGLUC #### [facility] [address] [place] [address] [address] Darrick Cao Hematocrit (Bld) [Volume fraction] 35.4 % Critically low 36.0-48.0 [facility] Comment on above: Performed By: #### P OCGLUC #### [facility] [address] [place] [address] [address] Darrick Cao Hemoglobin (Bld) [Mass/Vol] 11.4 g/dL Critically low 12.0-16.0 [facility] Comment on above: Performed By: #### P OCGLUC #### [facility] [address] [place] [address] Dr. Darrick Cao IG # 0.02 10e3/ul Normal 0.00-0.03 [facility] Comment on above: Performed By: #### P OCGLUC #### [facility] [address] [place] [address] [address] Darrick Cao IG % 0.3 % Normal 0.0-0.5 [facility] Comment on above: Performed By: #### P OCGLUC #### [facility] [address] [place] [address] [address] Darrick Cao LYMPH # 1.9 103/ul Normal 1.2-3.8 [facility] Comment on above: Performed By: #### P OCGLUC #### [facility] [address] [place] [address] Dr. Darrick Cao Lymphocytes/100 WBC (Bld) 30.2 % Normal 20.5-60.0 [facility] Comment on above: Performed By: #### P OCGLUC #### [facility] [address] [place] [address] [address] Darrick Cao MANUAL DIFF REQ NO Normal [facility] Comment on above: Performed By: #### P OCGLUC #### [facility] [address] [place] [address] Dr. Darrick Cao MCH (RBC) [Entitic mass] 27.9 pg Normal 26.7-34.0 [facility] Comment on above: Performed By: #### P OCGLUC #### [facility] [address] [address] [address] Darrick Cao MCHC (RBC) [Mass/Vol] 32.2 g/dL Normal 29.9-35.2 [facility] Comment on above: Performed By: #### P OCGLUC #### [facility] [address] [place] [address] [address] Darrick Cao MCV (RBC) [Entitic vol] 86.6 fL Normal 81.0-99.0 [facility] Comment on above: Performed By: #### P OCGLUC #### [facility] [address] [place] [address] [address] Darrick Cao MONO # 0.6 103/ul Normal 0.3-0.8 [facility] Comment on above: Performed By: #### P OCGLUC #### [facility] [address] [place] [address] Dr. Darrick Cao Monocytes/100 WBC (Bld) 9.0 % Normal 1.7-12.0 [facility] Comment on above: Performed By: #### P OCGLUC #### [facility] [address] [place] [address] Dr. Darrick Cao NEUT # 3.7 103/ul Normal 1.4-6.5 [facility] Comment on above: Performed By: #### P OCGLUC #### [facility] [address] [place] [address] Dr. Darrick Cao Neutrophils/100 WBC (Bld) 57.8 % Normal 43.0-75.0 [facility] Comment on above: Performed By: #### P OCGLUC #### [facility] [address] [address] [address] Darrick Cao Platelet mean volume (Bld) [Entitic vol] 9.5 fL Normal 9.5-13.5 [facility] Comment on above: Performed By: #### P OCGLUC #### [facility] [address] [place] [address] Dr. Darrick Cao PLT 256 103/ul Normal 150-450 [facility] Comment on above: Performed By: #### P OCGLUC #### [facility] [address] [address] [address] Darrick Cao RBC 4.09 106/ul Critically low 4.20-5.40 [facility] Comment on above: Performed By: #### P OCGLUC #### [facility] [address] [address] [address] Darrick Cao WBC 6.3 103/ul Normal 4.0-11.0 [facility] Comment on above: Performed By: #### P OCGLUC #### [facility] [address] [address] [address] Darrick Cao GRAM STAINon 04-24-2022 COMMENTS NO ORGANISMS OBSERVED Normal [facility] Comment on above: Performed By: #### C XWND #### [facility] [address] [place] [address] Dr. Darrick Cao DIPHTHEROIDS Normal [facility] Comment on above: Performed By: #### C XWND #### [facility] [address] [address] [address] Darrick Cao EPITHELIALS Normal [facility] Comment on above: Performed By: #### C XWND #### [facility] [address] [address] [address] Darrick Cao FUNGAL ELEMENTS Normal [facility] Comment on above: Performed By: #### C XWND #### [facility] [address] [address] [address] Darrick SOLOMON NEG BACILLI Normal The [facility] Comment on above: Performed By: #### C XWND #### [facility] [address] [address] [address] Darrick SOLOMON NEG DIPPLOCOCCI Normal [facility] Comment on above: Performed By: #### C XWND #### [facility] [address] [place] [address] Dr. Darrick Cao GRAM POS BACILLI Normal [facility] Comment on above: Performed By: #### C XWND #### [facility] [address] [address] [address] Darrick Cao GRAM POSITIVE COCCI Normal [facility] Comment on above: Performed By: #### C XWND #### [facility] [address] [address] [address] Darrick Cao GRAM STAIN SOURCE Post irrigation left foot Normal [facility] Comment on above: Performed By: #### C XWND #### [facility] [address] [address] [address] Darrick Cao GS_DIPTH Normal [facility] Comment on above: Performed By: #### C XWND #### [facility] [address] [address] [address] Darrick Cao WBC NONE SEEN [facility] Comment on above: Performed By: #### C XWND #### [facility] [address] [address] [address] Darrick Cao POINT OF CARE GLUCOSEon 04-01 Glucose [Mass/Vol] 132 mg/dL Critically high 74-106 [facility] Comment on above: Performed By: #### P OCGLUC #### [facility] [address] [address] [address] Darrick Cao Glucose [Mass/Vol] 105 mg/dL Normal 74-106 [facility] Comment on above: Performed By: #### P OCGLUC ####[facility] [address] [place] [address]Dr. Darrick Cao PROF 14(COMP METB)on 022 Albumin [Mass/Vol] 2.9 g/dL Critically low 3.4-5.0 [facility] Comment on above: Performed By: #### P OCGLUC #### [facility] [address] [address] [address] Darrick Cao Albumin/Globulin [Mass ratio] 0.8 {ratio} Normal [facility] Comment on above: Performed By: #### P OCGLUC #### [facility] [address] [address] [address] Darrick Cao ALP [Catalytic activity/Vol] 122 U/L Critically high 46-116 [facility] Comment on above: Performed By: #### P OCGLUC #### [facility] [address] [address] [address] Darrick Cao ALT [Catalytic activity/Vol] 65 U/L Critically high 14-59 [facility] Comment on above: Performed By: #### P OCGLUC #### [facility] [address] [address] [address] Darrick Cao Anion gap [Moles/Vol] 12.2 mmol/L Normal [facility] Comment on above: Performed By: #### P OCGLUC #### [facility] [address] [address] [address] Darrick Cao AST [Catalytic activity/Vol] 28 U/L Normal 15-37 [facility] Comment on above: Performed By: #### P OCGLUC #### [facility] [address] [address] [address] Darrick Cao Bilirubin [Mass/Vol] 0.3 mg/dL Normal 0.2-1.0 [facility] Comment on above: Performed By: #### P OCGLUC #### [facility] [address] [address] [address] Darrick Cao Calcium [Mass/Vol] 8.5 mg/dL Normal 8.5-10.1 [facility] Comment on above: Performed By: #### P OCGLUC #### [facility] [address] [address] [address] Darrick Cao Chloride [Moles/Vol] 107 mmol/L Normal 98-107 [facility] Comment on above: Performed By: #### P OCGLUC #### [facility] [address] [address] [address] Darrick Cao CO2 [Moles/Vol] 25.9 mmol/L Normal 21.0-32.0 [facility] [place] Comment on above: Performed By: #### P OCGLUC #### [facility] [address] [address] [address] Darrick Cao Creatinine [Mass/Vol] 0.87 mg/dL Normal 0.55-1.02 [facility] Comment on above: Performed By: #### P OCGLUC #### [facility] [address] [address] [address] Darrick Cao EGFR-AF MOROCCAN >60 Normal >=60 [facility] [place] Comment on above: Performed By: #### P OCGLUC #### [facility] [address] [address] [address] Darrick Cao EGFR-NON AF MOROCCAN >60 Normal >=60 [facility] Comment on above: Performed By: #### P OCGLUC #### [facility] [address] [address] [address] Darrick Cao Globulin (S) [Mass/Vol] 3.8 g/dL Normal [facility] Comment on above: Performed By: #### P OCGLUC #### [facility] [address] [address] [address] Darrick Cao Glucose [Mass/Vol] 107 mg/dL Critically high 74-106 [facility] Comment on above: Performed By: #### P OCGLUC #### [facility] [address] [address] [address] Darrick Cao Potassium [Moles/Vol] 4.1 mmol/L Normal 3.5-5.1 [facility] Comment on above: Performed By: #### P OCGLUC #### [facility] [address] [address] [address] Darrick Cao Protein [Mass/Vol] 6.7 g/dL Normal 6.4-8.2 The [facility] Comment on above: Performed By: #### P OCGLUC #### [facility] [address] [address] [address] Darrick Cao Sodium [Moles/Vol] 141 mmol/L Normal 136-145 [facility] Comment on above: Performed By: #### P OCGLUC #### [facility] [address] [address] [address] Darrick Cao Urea nitrogen [Mass/Vol] 10.0 mg/dL Normal 7.0-18.0 [facility] Comment on above: Performed By: #### P OCGLUC #### [facility] [address] [place] [address] Dr. Darrick Cao Urea nitrogen/Creatinine [Mass ratio] 11.5 mg/mg Normal [facility] Comment on above: Performed By: #### P OCGLUC #### [facility] [address] [place] [address] Dr. Darrick Cao VANCOMYCIN TROUGHon 04-24-20 VANCOMYCIN TROUGH 9.6 ug/ml Normal 5.0-20.0 [facility] Comment on above: Performed By: #### V ANCT #### [facility] [address] [place] [address] Dr. Darrick Cao CBC AUTO DIFFon 04-23-2022 BASO # 0.1 103/ul Normal 0.0-0.1 [facility] Comment on above: Performed By: #### C XWND #### [facility] [address] [place] [address] Dr. Darrick Cao Basophils/100 WBC (Bld) 0.6 % Normal 0.2-2.0 [facility] Comment on above: Performed By: #### C XWND #### [facility] [address] [place] [address] Dr. Darrick Cao EO # 0.1 103/ul Normal 0.0-0.7 [facility] Comment on above: Performed By: #### C XWND #### [facility] [address] [place] [address] Dr. Darrick Cao Eosinophils/100 WBC (Bld) 0.6 % Critically low 0.9-7.0 [facility] Comment on above: Performed By: #### C XWND #### [facility] [address] [place] [address] Dr. Darrick Cao Erythrocyte distribution width (RBC) [Ratio] 15.8 % Critically high 11.0-15.0 [facility] Comment on above: Performed By: #### C XWND #### [facility] [address] [place] [address] Dr. Darrick Cao Hematocrit (Bld) [Volume fraction] 34.0 % Critically low 36.0-48.0 [facility] Comment on above: Performed By: #### C XWND #### [facility] [address] [place] [address] Dr. Darrick Cao Hemoglobin (Bld) [Mass/Vol] 11.0 g/dL Critically low 12.0-16.0 [facility] Comment on above: Performed By: #### C XWND #### [facility] [address] [place] [address] Dr. Darrick Cao IG # 0.03 10e3/ul Normal 0.00-0.03 [facility] Comment on above: Performed By: #### C XWND #### [facility] [address] [place] [address] Dr. Darrick Cao IG % 0.4 % Normal 0.0-0.5 [facility] Comment on above: Performed By: #### C XWND #### [facility] [address] [place] [address] Dr. Darrick Cao LYMPH # 1.6 103/ul Normal 1.2-3.8 [facility] Comment on above: Performed By: #### C XWND #### [facility] [address] [place] [address] Dr. Darrick Cao Lymphocytes/100 WBC (Bld) 19.6 % Critically low 20.5-60.0 [facility] Comment on above: Performed By: #### C XWND #### [facility] [address] [place] [address] Dr. Darrick Cao MANUAL DIFF REQ NO Normal [facility] Comment on above: Performed By: #### C XWND #### [facility] [address] [place] [address] Dr. Darrick Cao MCH (RBC) [Entitic mass] 28.1 pg Normal 26.7-34.0 [facility] Comment on above: Performed By: #### C XWND #### [facility] [address] [place] [address] Dr. Darrick Cao MCHC (RBC) [Mass/Vol] 32.4 g/dL Normal 29.9-35.2 [facility] Comment on above: Performed By: #### C XWND #### [facility] [address] [place] [address] Dr. Darrick Cao MCV (RBC) [Entitic vol] 87.0 fL Normal 81.0-99.0 [facility] Comment on above: Performed By: #### C XWND #### [facility] [address] [place] [address] Dr. Darrick Cao MONO # 0.8 103/ul Normal 0.3-0.8 [facility] Comment on above: Performed By: #### C XWND #### [facility] [address] [place] [address] Dr. Darrick Cao Monocytes/100 WBC (Bld) 10.3 % Normal 1.7-12.0 [facility] Comment on above: Performed By: #### C XWND #### [facility] [address] [place] [address] Dr. Darrick Cao NEUT # 5.4 103/ul Normal 1.4-6.5 [facility] Comment on above: Performed By: #### C XWND #### [facility] [address] [place] [address] Dr. Darrick Cao Neutrophils/100 WBC (Bld) 68.5 % Normal 43.0-75.0 [facility] Comment on above: Performed By: #### C XWND #### [facility] [address] [place] [address] Dr. Darrick Cao Platelet mean volume (Bld) [Entitic vol] 9.9 fL Normal 9.5-13.5 [facility] Comment on above: Performed By: #### C XWND #### [facility] [address] [place] [address] Dr. Darrick Cao PLT 276 103/ul Normal 150-450 [facility] Comment on above: Performed By: #### C XWND #### [facility] [address] [place] [address] Dr. Darrick Cao RBC 3.91 106/ul Critically low 4.20-5.40 [facility] Comment on above: Performed By: #### C XWND #### [facility] [address] [address] [address] Darrick Cao WBC 7.9 103/ul Normal 4.0-11.0 [facility] Comment on above: Performed By: #### C XWND #### [facility] [address] [address] [address] Darrick Cao POINT OF CARE GLUCOSEon 04-01 Glucose [Mass/Vol] 138 mg/dL Critically high 74-106 [facility] Comment on above: Performed By: #### P OCGLUC ####[facility] [address] [address]Dr. Darrick Cao Glucose [Mass/Vol] 151 mg/dL Critically high 74-106 [facility] Comment on above: Performed By: #### P OCGLUC #### [facility] [address] [address] [address] Darrick Cao Glucose [Mass/Vol] 141 mg/dL Critically high 74-106 [facility] Comment on above: Performed By: #### P OCGLUC ####[facility] [address] [address]Dr. Darrick Cao PROF 14(COMP METB)on 022 Albumin [Mass/Vol] 3.0 g/dL Critically low 3.4-5.0 [facility] Comment on above: Performed By: #### C XWND #### [facility] [address] [place] [address] Dr. Darrick Cao Albumin/Globulin [Mass ratio] 0.9 {ratio} Normal [facility] Comment on above: Performed By: #### C XWND #### [facility] [address] [place] [address] Dr. Darrick Cao ALP [Catalytic activity/Vol] 128 U/L Critically high 46-116 [facility] Comment on above: Performed By: #### C XWND #### [facility] [address] [place], [place] [id number] Dr. Darrick Cao ALT [Catalytic activity/Vol] 71 U/L Critically high 14-59 [facility] Comment on above: Performed By: #### C XWND #### [facility] [address] [address] [address] Darrick Cao Anion gap [Moles/Vol] 13.1 mmol/L Normal [facility] Comment on above: Performed By: #### C XWND #### [facility] [address] [address] [address] Darrick Cao AST [Catalytic activity/Vol] 50 U/L Critically high 15-37 [facility] Comment on above: Performed By: #### C XWND #### [facility] [address] [place] [address] Dr. Darrick Cao Bilirubin [Mass/Vol] 0.3 mg/dL Normal 0.2-1.0 [facility] Comment on above: Performed By: #### C XWND #### [facility] [address] [place] [address] Dr. Darirck Cao Calcium [Mass/Vol] 8.2 mg/dL Critically low 8.5-10.1 [facility] Comment on above: Performed By: #### C XWND #### [facility] [address] [place] [address] Dr. Darrick Cao Chloride [Moles/Vol] 110 mmol/L Critically high 98-107 [facility] Comment on above: Performed By: #### C XWND #### [facility] [address] [place] [address] Dr. Darrick Cao CO2 [Moles/Vol] 23.4 mmol/L Normal 21.0-32.0 [facility] [place] Comment on above: Performed By: #### C XWND #### [facility] [address] [place] [address] Dr. Darrick Cao Creatinine [Mass/Vol] 0.96 mg/dL Normal 0.55-1.02 [facility] Comment on above: Performed By: #### C XWND #### [facility] [address] [address] [address] Darrick Cao EGFR-AF MOROCCAN >60 Normal >=60 [facility] [place] Comment on above: Performed By: #### C XWND #### [facility] [address] [address] [address] Darrick Cao EGFR-NON AF MOROCCAN 59 mL/min/1.73m2 Critically low >=60 [facility] Comment on above: Performed By: #### C XWND #### [facility] [address] [address] [address] Darrick Cao Globulin (S) [Mass/Vol] 3.3 g/dL Normal [facility] Comment on above: Performed By: #### C XWND #### [facility] [address] [address] [address] Darrick Cao Glucose [Mass/Vol] 116 mg/dL Critically high 74-106 [facility] Comment on above: Performed By: #### C XWND #### [facility] [address] [address] [address] Darrick Cao Potassium [Moles/Vol] 4.5 mmol/L Normal 3.5-5.1 [facility] Comment on above: Performed By: #### C XWND #### [facility] [address] [address] [address] Darrick Cao Protein [Mass/Vol] 6.3 g/dL Critically low 6.4-8.2 [facility] Comment on above: Performed By: #### C XWND #### [facility] [address] [address] [address] Darrick Cao Sodium [Moles/Vol] 142 mmol/L Normal 136-145 [facility] Comment on above: Performed By: #### C XWND #### [facility] [address] [address] [address] Darrick Cao Urea nitrogen [Mass/Vol] 14.0 mg/dL Normal 7.0-18.0 [facility] Comment on above: Performed By: #### C XWND #### [facility] [address] [place] [address] Dr. Darrick Cao Urea nitrogen/Creatinine [Mass ratio] 14.6 mg/mg Normal [facility] Comment on above: Performed By: #### C XWND #### [facility] [address] [place] [address] Dr. Darrick Cao CBC AUTO DIFFon 04-22-2022 BASO # 0.1 103/ul Normal 0.0-0.1 [facility] Comment on above: Performed By: #### C BC #### [facility] [address] [place] [address] Dr. Darrick Cao Basophils/100 WBC (Bld) 0.7 % Normal 0.2-2.0 [facility] Comment on above: Performed By: #### C BC #### [facility] [address] [place] [address] Dr. Darrick Cao EO # 0.1 103/ul Normal 0.0-0.7 [facility] Comment on above: Performed By: #### C BC #### [facility] [address] [place] [address] Dr. Darrick Cao Eosinophils/100 WBC (Bld) 0.5 % Critically low 0.9-7.0 [facility] Comment on above: Performed By: #### C BC #### [facility] [address] [place] [address] Dr. Darrick Cao Erythrocyte distribution width (RBC) [Ratio] 15.8 % Critically high 11.0-15.0 [facility] Comment on above: Performed By: #### C BC #### [facility] [address] [place] [address] Dr. Darrick Cao Hematocrit (Bld) [Volume fraction] 39.8 % Normal 36.0-48.0 [facility] Comment on above: Performed By: #### C BC #### [facility] [address] [place] [address] Dr. Darrick Cao Hemoglobin (Bld) [Mass/Vol] 12.9 g/dL Normal 12.0-16.0 [facility] Comment on above: Performed By: #### C BC #### [facility] [address] [place] [address] Dr. Darrick Cao IG # 0.03 10e3/ul Normal 0.00-0.03 [facility] Comment on above: Performed By: #### C BC #### [facility] [address] [place] [address] Dr. Darrick Cao IG % 0.3 % Normal 0.0-0.5 [facility] Comment on above: Performed By: #### C BC #### [facility] [address] [place] [address] Dr. Darrick Cao LYMPH # 1.6 103/ul Normal 1.2-3.8 [facility] Comment on above: Performed By: #### C BC #### [facility] [address] [place] [address] Dr. Darrick Cao Lymphocytes/100 WBC (Bld) 16.0 % Critically low 20.5-60.0 [facility] Comment on above: Performed By: #### C BC #### [facility] [address] [place] [address] Dr. Darrick Cao MANUAL DIFF REQ NO Normal [facility] Comment on above: Performed By: #### C BC #### [facility] [address] [place] [address] Dr. Darrick Cao MCH (RBC) [Entitic mass] 28.2 pg Normal 26.7-34.0 [facility] Comment on above: Performed By: #### C BC #### [facility] [address] [place] [address] Dr. Darrick Cao MCHC (RBC) [Mass/Vol] 32.4 g/dL Normal 29.9-35.2 [facility] Comment on above: Performed By: #### C BC #### [facility] [address] [place] [address] Dr. Darrick Cao MCV (RBC) [Entitic vol] 86.9 fL Normal 81.0-99.0 [facility] Comment on above: Performed By: #### C BC #### [facility] [address] [address] [address] Darrick Cao MONO # 0.9 103/ul Critically high 0.3-0.8 [facility] Comment on above: Performed By: #### C BC #### [facility] [address] [place] [address] Dr. Darrick Cao Monocytes/100 WBC (Bld) 8.7 % Normal 1.7-12.0 [facility] Comment on above: Performed By: #### C BC #### [facility] [address] [place] [address] Dr. Darrick Cao NEUT # 7.5 103/ul Critically high 1.4-6.5 [facility] Comment on above: Performed By: #### C BC #### [facility] [address] [place] [address] Dr. Darrick Cao Neutrophils/100 WBC (Bld) 73.8 % Normal 43.0-75.0 [facility] Comment on above: Performed By: #### C BC #### [facility] [address] [place] [address] Dr. Darrick Cao Platelet mean volume (Bld) [Entitic vol] 9.3 fL Critically low 9.5-13.5 [facility] Comment on above: Performed By: #### C BC #### [facility] [address] [place] [address] Dr. Darrick Cao PLT 345 103/ul Normal 150-450 [facility] Comment on above: Performed By: #### C BC #### [facility] [address] [place] [address] Dr. Darrick Cao RBC 4.58 106/ul Normal 4.20-5.40 [facility] Comment on above: Performed By: #### C BC #### [facility] [address] [place] [address] Dr. Darrick Cao WBC 10.1 103/ul Normal 4.0-11.0 [facility] Comment on above: Performed By: #### C BC #### [facility] [address] [place] [address] Dr. Darrick Cao CRPon 04-22-2022 CRP 5.2 mg/dL Critically high <=1.0 [facility] Comment on above: Performed By: #### B MP, CRP ####[facility] [address] [place], [place] [address]DrDr. Darrick Cao CULTURE BLOODon 04-22-2022 Microscopic examination of blood, culture Culture Observations: NO GROWTH AT 5 DAYS. Normal [facility] Comment on above: Performed By: #### B LDCX2 #### [facility] [address] [address] [address] Darrick Cao Microscopic examination of blood, culture Culture Observations: NO GROWTH AT 5 DAYS. Normal [facility] Comment on above: Performed By: #### B LDCX1 #### [facility] [address] [address] [address] Darrick Cao [facility]01 SARS-CoV-2 (COVID-19) RNA ALEKSANDR+probe Ql (Unsp spec) Not detected Normal NOT DETECTED [facility] Comment on above: Result Comment: When diagnostic [...] for this test is supported by the [place] of Health and Human Service's declaration that [...] used). Performed By: #### P OCGLUC #### [facility] [address] [address] [address] Darrick Cao LACTATE/LACTIC ACIDon 2021 Lactate [Moles/Vol] 1.3 mmol/L Normal 0.4-1.9 [facility] Comment on above: Performed By: #### P OCGLUC #### [facility] [address] [address] [address] Darrick Cao POINT OF CARE GLUCOSEon 04-01 Glucose [Mass/Vol] 96 mg/dL Normal 74-106 [facility] Comment on above: Performed By: #### P OCGLUC #### [facility] [address] [address] [address] Darrick Cao PROF CHEM 8 (BAS METB)on Anion gap [Moles/Vol] 12.3 mmol/L Normal [facility] Comment on above: Performed By: #### B MP, CRP ####[facility] [address] [address]Dr. Darrick Cao Calcium [Mass/Vol] 9.2 mg/dL Normal 8.5-10.1 [facility] Comment on above: Performed By: #### B MP, CRP ####[facility] [address] [id number]. Darrick Cao Chloride [Moles/Vol] 104 mmol/L Normal 98-107 [facility] Comment on above: Performed By: #### B MP, CRP ####[facility] [address] [id number]. Darrick Cao CO2 [Moles/Vol] 26.4 mmol/L Normal 21.0-32.0 [facility] [place] Comment on above: Performed By: #### B MP, CRP ####[facility] [address] [id number]. Darrick Cao Creatinine [Mass/Vol] 1.19 mg/dL Critically high 0.55-1.02 [facility] Comment on above: Performed By: #### B MP, CRP ####[facility] [address] [id number]. Darrick Cao EGFR-AF MOROCCAN 56 mL/min/1.73m2 Critically low >=60 [facility] Comment on above: Performed By: #### B MP, CRP ####[facility] [address] [place], [place] [address]Lu. Darrick Cao EGFR-NON AF MOROCCAN 46 mL/min/1.73m2 Critically low >=60 [facility] Comment on above: Performed By: #### B MP, CRP ####[facility] [address] [id number]. Darrick Cao Glucose [Mass/Vol] 124 mg/dL Critically high 74-106 [facility] Comment on above: Performed By: #### B MP, CRP ####[facility] [address] [id number]. Darrick Cao Potassium [Moles/Vol] 4.7 mmol/L Normal 3.5-5.1 [facility] Comment on above: Performed By: #### B MP, CRP ####[facility] [address] [id number]. Darrick Cao Sodium [Moles/Vol] 138 mmol/L Normal 136-145 [facility] Comment on above: Performed By: #### B MP, CRP ####[facility] [address] [id number]. Darrick Cao Urea nitrogen [Mass/Vol] 21.0 mg/dL Critically high 7.0-18.0 [facility] Comment on above: Performed By: #### B MP, CRP ####[facility] [address] [id number]. Darrick Cao Urea nitrogen/Creatinine [Mass ratio] 17.6 mg/mg Normal [facility] Comment on above: Performed By: #### B MP, CRP ####[facility] [address] [id number]. Darrick Cao SED RATE [facility] 2021 SED RATE 64 mm/hr Critically high <=30 [facility] Comment on above: Performed By: #### P OCGLUC #### [facility] [address] [place], [place] [address] ANKLE LT WO [...] by: SHAWNEE KELLY Date: 2022-03-11 10:18 Normal [facility] [employer] Quick Testingon 2020 Result Negative I & Combine Other Operative Reporton Operative Report MR#: [id number] S [facility] Pt. Name: Nicol Knowles Room #: 0C Discharge Date: Birthdate: 1960 OPERATIVE REPORT DATE OF SURGERY: 12/16/2020 SURGEON: David Lr M.D. PREOPERATIVE DIAGNOSIS: Trigger digits, right long finger and thumb. POSTOPERATIVE DIAGNOSIS: Trigger digits, right long finger and thumb. PROCEDURE: A1 leigha release, right long finger and thumb. LENS CEMENTER: Hay Mast M.D. ANESTHESIA: MAC. INDICATION FOR [...] Lr M.D. Date Trans: 12/16/2020 09:13 A/braxton [id number] cc: Waqas Pierce M.D. [address] [place] [address] [place] [facility] POC GLUCOSE LABon 12-16-2020 Glucose [Mass/Vol] 103 mg/dL High 70-100 [facility] Comment on above: Performed By: #### 8 [id number] #### [facility] [id number] Vital Signs Date Time Vital Sign Value Performing Clinician Facility 08-04-2024 10:48-0500 Body height 170.18 cm [facility] 08-04-2024 10:48-0500 Body mass index (BMI) [Ratio] 44.8 kg/m2 [facility] 08-04-2024 10:48-0500 Body weight 129.72 kg [facility] 08-04-2024 10:48-0500 Diastolic blood pressure 84 mm[Hg] [facility] 08-04-2024 10:48-0500 Heart rate 82 /min [facility] 08-04-2024 10:48-0500 Systolic blood pressure 128 mm[Hg] [facility] 06-19-2024 12:54-0400 Body mass index (BMI) [Ratio] 47.9 kg/m2 [facility] 06-19-2024 11:16-0400 Body height 170.18 cm [facility] 06-19-2024 11:16-0400 Body weight 129 kg [facility] 06-16-2024 09:58-0400 Body height 170.18 cm [facility] 06-16-2024 09:58-0400 Body mass index (BMI) [Ratio] 44.9 kg/m2 [facility] 06-16-2024 09:58-0400 Body weight 130.18 kg [facility] 06-16-2024 09:58-0400 Diastolic blood pressure 75 mm[Hg] [facility] 06-16-2024 09:58-0400 Heart rate 83 /min [facility] 06-16-2024 09:58-0400 Systolic blood pressure 114 mm[Hg] [facility] 05-23-2024 10:46-0400 Body mass index (BMI) [Ratio] 47.9 kg/m2 [facility] 05-23-2024 09:49-0400 Body height 170.18 cm [facility] 05-23-2024 09:49-0400 Body weight 127.45 kg [facility] 02-21-2024 10:03-0400 Body height 170.18 cm MD Waqas Pierce Work Phone: [facility] 02-21-2024 10:03-0400 Body mass index (BMI) [Ratio] 42.3 kg/m2 MD Waqas Pierce Work Phone: [facility] 02-21-2024 10:03-0400 Body weight 122.49 kg MD Waqas Pierce Work Phone: [facility] 02-21-2024 10:03-0400 Diastolic blood pressure 88 mm[Hg] MD Waqas Pierce Work Phone: [facility] 02-21-2024 10:03-0400 Heart rate 85 /min MD Waqas Pierce Work Phone: [facility] 02-21-2024 10:03-0400 Respiratory rate 18 /min MD Waqas Pierce Work Phone: [facility] 02-21-2024 10:03-0400 SaO2% (BldA) [Mass fraction] 97 % MD Waqas Pierce Work Phone: [facility] 02-21-2024 10:03-0400 Systolic blood pressure 142 mm[Hg] MD aWqas Pierce Work Phone: [facility] 01-15-2024 10:50-0400 Body height 170.18 cm [facility] 01-15-2024 10:50-0400 Body mass index (BMI) [Ratio] 47.9 kg/m2 [facility] 01-15-2024 10:50-0400 Body weight 138.88 kg [facility] 01-10-2024 09:49-0400 Body mass index (BMI) [Ratio] 47.9 kg/m2 MD Waqas Pierce Work Phone: [facility] 01-10-2024 08:37-0400 Body height 170.18 cm MD Waqas Pierce Work Phone: [facility] 01-10-2024 08:37-0400 Body weight 117.02 kg MD Waqas Pierce Work Phone: [facility] 01-03-2024 10:52-0400 Body height 170.18 cm MD Waqas Pierce Work Phone: [facility] 01-03-2024 10:52-0400 Body mass index (BMI) [Ratio] 39.8 kg/m2 MD Waqas Pierce Work Phone: [facility] 01-03-2024 10:52-0400 Body weight 115.41 kg MD Waqas Pierce Work Phone: [facility] 01-03-2024 10:52-0400 Diastolic blood pressure 89 mm[Hg] MD Waqas Pierce Work Phone: [facility] 01-03-2024 10:52-0400 Heart rate 87 /min MD Waqas Pierce Work Phone: [facility] 01-03-2024 10:52-0400 Respiratory rate 18 /min MD Waqas Pierce Work Phone: [facility] 01-03-2024 10:52-0400 SaO2% (BldA) [Mass fraction] 99 % MD Waqas Pierce Work Phone: [facility] 01-03-2024 10:52-0400 Systolic blood pressure 128 mm[Hg] MD Waqas Pierce Work Phone: [facility] 12-10-2023 11:39-0400 Body mass index (BMI) [Ratio] 47.9 kg/m2 MD Waqas Pierce Work Phone: [facility] 12-10-2023 10:57-0400 Body height 170.18 cm MD Waqas Pierce Work Phone: [facility] 12-10-2023 10:57-0400 Body weight 117.02 kg MD Waqas Pierce Work Phone: [facility] 11-22-2023 10:59-0500 Body height 170.18 cm [facility] 11-22-2023 10:59-0500 Body mass index (BMI) [Ratio] 41.1 kg/m2 [facility] 11-22-2023 10:59-0500 Body weight 119.01 kg [facility] 11-22-2023 10:59-0500 Diastolic blood pressure 84 mm[Hg] [facility] 11-22-2023 10:59-0500 Heart rate 72 /min [facility] 11-22-2023 10:59-0500 Respiratory rate 18 /min [facility] 11-22-2023 10:59-0500 SaO2% (BldA) [Mass fraction] 99 % [facility] 11-22-2023 10:59-0500 Systolic blood pressure 132 mm[Hg] [facility] 11-21-2023 09:48-0500 Body height 170.18 cm [facility] 11-21-2023 09:48-0500 Body mass index (BMI) [Ratio] 40.7 kg/m2 [facility] 11-21-2023 09:48-0500 Body temperature 98.2 [degF] [facility] 11-21-2023 09:48-0500 Body weight 117.99 kg [facility] 11-21-2023 09:48-0500 Diastolic blood pressure 82 mm[Hg] [facility] 11-21-2023 09:48-0500 Heart rate 105 /min [facility] 11-21-2023 09:48-0500 Systolic blood pressure 131 mm[Hg] [facility] 11-19-2023 09:52-0500 Body height 170.18 cm [facility] 11-19-2023 09:52-0500 Body mass index (BMI) [Ratio] 40.8 kg/m2 [facility] 11-19-2023 09:52-0500 Body weight 118.38 kg [facility] 11-01-2023 11:15-0500 Body height 170.18 cm Waqas Pierce Other [facility] 11-01-2023 11:15-0500 Body mass index (BMI) [Ratio] 40.75 kg/m2 Waqas Pierce Other [employer] Other 11-01-2023 11:15-0500 Body weight 118.03 kg Waqas Pierce Other [employer] Other 11-01-2023 11:15-0500 Body weight 118.02 kg [facility] 11-01-2023 11:15-0500 Diastolic blood pressure 87 mm[Hg] Waqas Pierce Other [facility] 11-01-2023 11:15-0500 Systolic blood pressure 127 mm[Hg] Waqas Pierce Other [facility] 10-15-2023 10:00-0500 Body height 170.18 cm Grecia Fitt Other [facility] 10-15-2023 10:00-0500 Body mass index (BMI) [Ratio] 40.08 kg/m2 Grecia Fitt Other [employer] Other 10-15-2023 10:00-0500 Body weight 116.08 kg Grecia Fitt Other [employer] Other 10-15-2023 10:00-0500 Body weight 116.07 kg [facility] 09-18-2023 11:00-0500 Body height 170.18 cm Rolando Jasmin Other [facility] 09-18-2023 11:00-0500 Body mass index (BMI) [Ratio] 40.45 kg/m2 Rolando Jasmin Other [employer] Other 09-18-2023 11:00-0500 Body weight 117.16 kg Rolandotimothy Castellanos Other [facility] 09-18-2023 11:00-0500 Diastolic blood pressure 80 mm[Hg] Rolando Castellanos Other [facility] 09-18-2023 11:00-0500 Respiratory rate 18 /min Rolando Jasmin Other [employer] Other 09-18-2023 11:00-0500 SaO2% (BldA) [Mass fraction] 98 % Rolando Castellanos Other [employer] [facility] [employer] Other 09-18-2023 11:00-0500 Systolic blood pressure 115 mm[Hg] Rolando Castellanos Other [facility] 09-17-2023 10:45-0500 Body height 170.18 cm Grecia Fitt Other [facility] 09-17-2023 10:45-0500 Body mass index (BMI) [Ratio] 40.65 kg/m2 Grecia Fitt Other [employer] Other 09-17-2023 10:45-0500 Body weight 117.75 kg Grecia Fitt Other [facility] 09-03-2023 12:45-0500 Diastolic blood pressure 60 mm[Hg] MD Waqas Pierce Work Phone: [facility] 09-03-2023 12:45-0500 Heart rate 70 /min MD Waqas Pierce Work Phone: [facility] 09-03-2023 12:45-0500 Inhaled oxygen flow rate 1 L/min MD Waqas Pierce Work Phone: [facility] 09-03-2023 12:45-0500 Respiratory rate 16 /min MD Waqas Pierce Work Phone: [facility] 09-03-2023 12:45-0500 SaO2% (BldA) [Mass fraction] 97 % MD Waqas Pierce Work Phone: [facility] 09-03-2023 12:45-0500 Systolic blood pressure 132 mm[Hg] MD Waqas Pierce Work Phone: [facility] 09-03-2023 10:21-0500 Body temperature 98.4 [degF] MD Waqas Pierce Work Phone: [facility] 09-03-2023 07:14-0500 Body height 172.72 cm MD Waqas Pierce Work Phone: [facility] 09-03-2023 07:14-0500 Body mass index (BMI) [Ratio] 39.5 kg/m2 MD Waqas Pierce Work Phone: [facility] 09-03-2023 07:14-0500 Body weight 118 kg MD Waqas Pierce Work Phone: [facility] 08-21-2023 14:30-0500 Body height 170.18 cm Waqas Pierce Other [facility] [employer] Other 08-21-2023 14:30-0500 Body mass index (BMI) [Ratio] 39.46 kg/m2 Waqas Pierce Other [employer] Other 08-21-2023 14:30-0500 Body weight 114.31 kg Waqas Pierce Other [employer] Other 08-21-2023 14:30-0500 Diastolic blood pressure 84 mm[Hg] Waqas Pierce Other [employer] Other 08-21-2023 14:30-0500 Systolic blood pressure 138 mm[Hg] Waqas Pierce Other [employer] Other 08-13-2023 10:45-0500 Body height 170.18 cm Grecia Fitt Other [employer] Other 08-13-2023 10:45-0500 Body mass index (BMI) [Ratio] 41.22 kg/m2 Grecia Fitt Other [employer] Other 08-13-2023 10:45-0500 Body weight 119.39 kg Grecia Fitt Other [employer] Other 07-26-2023 11:30-0400 Body height 170.18 cm Rolandotimothy Castellanos Other [employer] Other 07-26-2023 11:30-0400 Body mass index (BMI) [Ratio] 41.86 kg/m2 Rolandotimothy Castellanos Other [employer] Other 07-26-2023 11:30-0400 Body weight 121.25 kg Rolandotimothy Castellanos Other [employer] Other 07-26-2023 11:30-0400 Diastolic blood pressure 77 mm[Hg] Rolando Castellanos Other [employer] Other 07-26-2023 11:30-0400 Respiratory rate 18 /min Rolando Castellanos Other [employer] Other 07-26-2023 11:30-0400 SaO2% (BldA) [Mass fraction] 98 % Rolando Castellanos Other [employer] Other 07-26-2023 11:30-0400 Systolic blood pressure 121 mm[Hg] Rolando Castellanos Other [employer] Other 07-23-2023 10:45-0400 Body height 170.18 cm Grecia Fitt Other [employer] Other 07-23-2023 10:45-0400 Body mass index (BMI) [Ratio] 41.78 kg/m2 Grecia Fitt Other [employer] Other 07-23-2023 10:45-0400 Body weight 121.02 kg Grecia Fitt Other [employer] Other 06-27-2023 15:15-0400 Body height 170.18 cm David Hatillo II Other [employer] Other 06-27-2023 15:15-0400 Body mass index (BMI) [Ratio] 41.97 kg/m2 David Hatillo II Other [employer] Other 06-27-2023 15:15-0400 Body weight 121.56 kg David Hatillo II Other [employer] Other 06-18-2023 11:30-0400 Body height 170.18 cm Grecia Fitt Other [employer] Other 06-18-2023 11:30-0400 Body mass index (BMI) [Ratio] 42.52 kg/m2 Grecia Fitt Other [employer] Other 06-18-2023 11:30-0400 Body weight 123.15 kg Grecia Carrera Other [employer] Other 06-14-2023 10:00-0400 Body height 170.18 cm Rolando Reyesdiff Other [employer] Other 06-14-2023 10:00-0400 Body mass index (BMI) [Ratio] 42.89 kg/m2 Rolando Reyesdiff Other [employer] Other 06-14-2023 10:00-0400 Body weight 124.24 kg Rolando Reyesdiff Other [employer] Other 06-14-2023 10:00-0400 Diastolic blood pressure 87 mm[Hg] Rolandotimothy Reyesdiff Other [employer] Other 06-14-2023 10:00-0400 Respiratory rate 18 /min Rolando Reyesdiff Other [employer] Other 06-14-2023 10:00-0400 SaO2% (BldA) [Mass fraction] 100 % Rolando Jasmin Other [employer] Other 06-14-2023 10:00-0400 Systolic blood pressure 124 mm[Hg] Rolando Castellanos Other [employer] Other 06-11-2023 12:45-0400 Body height 170.18 cm Waqas Pierce Other [employer] Other 06-11-2023 12:45-0400 Body mass index (BMI) [Ratio] 42.41 kg/m2 Waqas Pierce Other [employer] Other 06-11-2023 12:45-0400 Body weight 122.83 kg Waqas Pierce Other [employer] Other 06-11-2023 12:45-0400 Diastolic blood pressure 76 mm[Hg] Waqas Pierce Other [employer] Other 06-11-2023 12:45-0400 Respiratory rate 12 /min Waqas Pierce Other [employer] Other 06-11-2023 12:45-0400 Systolic blood pressure 124 mm[Hg] Waqas Pierce Other [employer] Other 05-14-2023 10:00-0400 Body height 170.18 cm Grecia Fitt Other [employer] Other 05-14-2023 10:00-0400 Body mass index (BMI) [Ratio] 43.05 kg/m2 Grecia Fitt Other [employer] Other 05-14-2023 10:00-0400 Body weight 124.69 kg Grecia Fitt Other [employer] Other 04-16-2023 10:00-0400 Body height 170.18 cm Grecia Fitt Other [employer] Other 04-16-2023 10:00-0400 Body mass index (BMI) [Ratio] 43.94 kg/m2 Grecia Fitt Other [employer] Other 04-16-2023 10:00-0400 Body weight 127.28 kg Grecia Fitt Other [employer] Other 01-11-2023 11:00-0400 Body height 170.18 cm Grecia Fitt Other [employer] Other 01-11-2023 11:00-0400 Body mass index (BMI) [Ratio] 47.37 kg/m2 Grecia Fitt Other [employer] Other 01-11-2023 11:00-0400 Body weight 137.21 kg Grecia Fitt Other [employer] Other 11-16-2022 11:45-0500 Body height 170.18 cm Rolando Castellanos Other [employer] Other 11-16-2022 11:45-0500 Body mass index (BMI) [Ratio] 47 kg/m2 Rolando Castellanos Other [employer] Other 11-16-2022 11:45-0500 Body weight 136.13 kg Rolando Castellanos Other [employer] Other 11-16-2022 11:45-0500 Diastolic blood pressure 85 mm[Hg] Rolando Castellanos Other [employer] Other 11-16-2022 11:45-0500 Respiratory rate 18 /min Rolando Castellanos Other [employer] Other 11-16-2022 11:45-0500 SaO2% (BldA) [Mass fraction] 97 % Rolando Castellanos Other [employer] Other 11-16-2022 11:45-0500 Systolic blood pressure 114 mm[Hg] Rolando Castellanos Other [employer] Other 11-14-2022 09:15-0500 Body height 170.18 cm Grecia Carrera Other [employer] Other 11-08-2022 14:57-0500 Blood Pressure Location [email or web address] [place] 11-08-2022 14:57-0500 Diastolic blood pressure 74 mm[Hg] Efrain NILL [facility] 11-08-2022 14:57-0500 Heart rate 80 /min [employer] [facility] [facility] [place] 11-08-2022 14:57-0500 Respiratory rate 16 /min [employer] [facility] [place] 11-08-2022 14:57-0500 Systolic blood pressure 118 mm[Hg] Efrain NILL [facility] 10-23-2022 10:30-0500 Body height 170.18 cm Waqas Pierce Other [employer] Other 10-23-2022 10:30-0500 Body mass index (BMI) [Ratio] 46.04 kg/m2 Waqas Pierce Other [employer] Other 10-23-2022 10:30-0500 Body weight 133.36 kg Waqas Pierce Other [employer] Other 10-23-2022 10:30-0500 Diastolic blood pressure 88 mm[Hg] Waqas Pierce Other [employer] Other 10-23-2022 10:30-0500 Systolic blood pressure 148 mm[Hg] Waqas Pierce Other [employer] Other 10-13-2022 10:15-0500 Body height 170.18 cm Rachel Missler Other [employer] Other 10-13-2022 10:15-0500 Body mass index (BMI) [Ratio] 45.89 kg/m2 Rachel Missler Other [employer] Other 10-13-2022 10:15-0500 Body weight 132.9 kg Rachel Missler Other [employer] Other 10-13-2022 10:15-0500 Diastolic blood pressure 89 mm[Hg] Rachel Missler Other [employer] Other 10-13-2022 10:15-0500 Respiratory rate 18 /min Rachel Missler Other [employer] Other 10-13-2022 10:15-0500 SaO2% (BldA) [Mass fraction] 96 % Rachel Missler Other [employer] Other 10-13-2022 10:15-0500 Systolic blood pressure 138 mm[Hg] Rachel Missler Other [employer] Other 09-06-2022 16:00-0500 Body height 170.18 cm David Bartolo II Other [employer] Other 09-06-2022 16:00-0500 Body mass index (BMI) [Ratio] 45.57 kg/m2 David Hatillo II Other [employer] Other 09-06-2022 16:00-0500 Body weight 132 kg David Hatillo II Other [employer] Other 07-25-2021 18:45-0400 Body height 170.18 cm Mallory Yuen Other [employer] Other 07-25-2021 18:45-0400 Body mass index (BMI) [Ratio] 42.91 kg/m2 Mallory Yuen Other [employer] Other 07-25-2021 18:45-0400 Body temperature 98.6 [degF] Mallory Yuen Other [employer] Other 07-25-2021 18:45-0400 Body weight 124.29 kg Mallory Yuen Other [employer] Other 07-25-2021 18:45-0400 Respiratory rate 18 /min Mallory Yuen Other [employer] Other 07-25-2021 18:45-0400 SaO2% (BldA) [Mass fraction] 96 % Mallory Yuen Other [employer] Other Encounters Encounter Date Encounter Type Care Provider Facility Start: 08-27-2024 End: 08-27-2024 ambulatory David Mcfarland II Facility:[facility] Start: 08-18-2024 End: 08-18-2024 ambulatory Angel Hill MD Facility:[facility] Start: 08-04-2024 End: 08-04-2024 ambulatory [facility] Work Phone: Start: 08-04-2024 End: 08-04-2024 Patient encounter procedure [facility] Work Phone: Start: 07-25-2024 End: 07-25-2024 ambulatory ANITA [facility] Start: 07-15-2024 Non-patient / Non-visit [facility] [place] Work Phone: Start: 06-19-2024 End: 06-19-2024 ambulatory [facility] Work Phone: Start: 06-19-2024 End: 06-19-2024 Patient encounter procedure [facility] Work Phone: Start: 06-17-2024 Non-patient / Non-visit [facility] [place] Work Phone: Start: 06-16-2024 Patient encounter procedure [facility] Start: 06-16-2024 End: 06-16-2024 ambulatory [facility] Work Phone: Start: 06-16-2024 End: 06-16-2024 Patient encounter procedure [facility] Work Phone: Start: 05-23-2024 End: 05-23-2024 ambulatory [facility] Work Phone: Start: 05-23-2024 End: 05-23-2024 Patient encounter procedure [facility] Work Phone: Start: 02-21-2024 End: 02-21-2024 ambulatory MD Waqas Pierce Work Phone: [facility] Work Phone: Start: 02-21-2024 End: 02-21-2024 Patient encounter procedure MD Waqas Pierce Work Phone: [facility] Work Phone: Start: 01-15-2024 End: 01-15-2024 ambulatory NON STAFF [facility] Work Phone: Start: 01-15-2024 End: 01-15-2024 Patient encounter procedure [facility] Work Phone: Start: 01-11-2024 Non-patient / Non-visit [facility] [place] Work Phone: Start: 01-10-2024 End: 01-10-2024 ambulatory MD Waqas Pierce Work Phone: [facility] Work Phone: Start: 01-10-2024 End: 01-10-2024 Patient encounter procedure MD Waqas Pierce Work Phone: [facility] Work Phone: Start: 01-03-2024 End: 01-03-2024 ambulatory MD Waqas Pierce Work Phone: [facility] Work Phone: Start: 01-03-2024 End: 01-03-2024 Patient encounter procedure MD Waqas Pierce Work Phone: [facility] Work Phone: Start: 12-26-2023 End: 12-26-2023 ambulatory MD Waqas Pierce Work Phone: [facility] Work Phone: Start: 12-26-2023 End: 12-26-2023 Patient encounter procedure MD Waqas Pierce Work Phone: [facility] Work Phone: Start: 12-10-2023 End: 12-10-2023 Patient encounter procedure MD Waqas Pierce Work Phone: [facility] Work Phone: Start: 12-04-2023 Registered Recurring MD Waqas Pierce Work Phone: [facility] Start: 11-28-2023 End: 11-28-2023 Patient encounter procedure MD Waqas Pierce Work Phone: [facility] Work Phone: Start: 11-28-2023 End: 11-28-2023 Patient encounter procedure MD Waqas Pierce Work Phone: [facility] Start: 11-28-2023 End: 11-28-2023 ambulatory David Duy Mcfarland II Facility:[facility] Start: 11-22-2023 End: 11-22-2023 ambulatory NON STAFF [facility] Work Phone: Start: 11-22-2023 End: 11-22-2023 Patient encounter procedure [facility] Work Phone: Start: 11-21-2023 End: 11-21-2023 ambulatory NON STAFF [facility] Work Phone: Start: 11-21-2023 End: 11-21-2023 Patient encounter procedure [facility] Work Phone: Start: 11-20-2023 Registered Recurring MD Waqas Pierce Work Phone: [facility] Start: 11-19-2023 End: 11-19-2023 ambulatory NON STAFF [facility] Work Phone: Start: 11-19-2023 End: 11-19-2023 Patient encounter procedure [facility] Work Phone: Start: 11-01-2023 End: 11-01-2023 ambulatory Waqas Pierce Other [employer] Other Start: 11-01-2023 Office outpatient vi sit 15 minutes Waqas Pierce [facility] Start: 11-01-2023 End: 11-01-2023 Patient encounter procedure [facility]- Start: 10-31-2023 End: 10-31-2023 ambulatory Waqas Pierce Other [employer] Other Start: 10-31-2023 Telephone encounter Waqas Pierce [facility] Start: 10-23-2023 Registered Recurring MD Waqas Pierce Work Phone: [facility] Start: 10-17-2023 Postop follow up vis it related to original px David Hatillo II [facility] Start: 10-17-2023 End: 10-17-2023 Patient encounter procedure [facility] Start: 10-17-2023 End: 10-17-2023 ambulatory NON STAFF [facility] Work Phone: Start: 10-15-2023 ([facility] RD FU) FCC F/ U [employer] [facility] Grecia Carrera [facility] Start: 10-15-2023 [facility]istered [facility]ur[facility] Work Phone: Start: 10-15-2023 End: 10-15-2023 ambulatory David Duy Rdzle II [employer] Other Start: 10-15-2023 End: 10-15-2023 Patient encounter procedure [facility] Work Phone: Start: 10-02-2023 End: 10-02-2023 ambulatory Rolando Castellanos Other [employer] Other Start: 10-02-2023 Telephone encounter Rolando dhillon [facility] Start: 09-19-2023 End: 09-19-2023 ambulatory David Mcfarland II Other [employer] Other Start: 09-19-2023 Postop follow up vis it related to original px Carrie Perea [facility] Start: 09-19-2023 Telephone encounter David Rdzle II [facility] Start: 09-19-2023 End: 09-19-2023 Patient encounter procedure [facility] Work Phone: Start: 09-18-2023 End: 09-18-2023 ambulatory Rolando Castellanos Other [employer] Other Start: 09-18-2023 Follow-up encounter Rolando dhillon [facility] Start: 09-18-2023 End: 09-18-2023 Patient encounter procedure [facility] Work Phone: Start: 09-17-2023 ([facility] RD FU) [facility] F/ U [employer] [facility] Grecia Carrera [facility] Start: 09-17-2023 End: 09-17-2023 ambulatory Grecia Carrera Other [employer] Other Start: 09-17-2023 End: 09-17-2023 Patient encounter procedure [facility] Work Phone: Start: 09-10-2023 End: 09-10-2023 ambulatory David Mcfarland II Other [employer] Other Start: 09-10-2023 Telephone encounter David Mcfarland II [facility] Start: 09-03-2023 End: 09-03-2023 Admission to same day surgery center MD Waqas Pierce Work Phone: [facility] [place] Start: 09-03-2023 End: 09-03-2023 ambulatory MD Waqas Pierce Work Phone: [facility] Work Phone: Start: 08-31-2023 (Prolonged) Prolonge d Services David Mcfarland II [facility] Start: 08-31-2023 Registered Recurring MD Waqas Pierce Work Phone: [facility]-Physical Therapy [place] Start: 08-31-2023 End: 08-31-2023 ambulatory David Mcfarland II [employer] Other Start: 08-30-2023 End: 08-30-2023 ambulatory David Mcfarland II Other [employer] Other Start: 08-30-2023 Office outpatient vi sit 40 minutes David Mcfarland II [facility] Start: 08-28-2023 End: 08-28-2023 ambulatory MD Waqas Pierce Work Phone: [facility] Work Phone: Start: 08-28-2023 End: 08-28-2023 Patient encounter procedure MD Waqas Pierce Work Phone: [facility] Work Phone: Start: 08-28-2023 Registered Recurring [facility] Start: 08-21-2023 End: 08-21-2023 ambulatory Waqas Pierce Other [employer] Other Start: 08-21-2023 Encounter for other preprocedural examination Waqas Pierce [facility] Start: 08-21-2023 Office outpatient vi sit 25 minutes Waqas Pierce [facility] Start: 08-15-2023 End: 08-15-2023 ambulatory MD Waqas Pierce Work Phone: [facility] Work Phone: Start: 08-15-2023 End: 08-15-2023 Patient encounter procedure MD Waqas Pierce Work Phone: [facility]-X[facility] Start: 08-13-2023 Registered Recurring MD Waqas Pierce Work Phone: [facility] Ctr-Weight Management Work Phone: Start: 08-13-2023 ([facility] RD FU) [facility] F/ U [employer]d [employer] [facility] Grecia Carrera [facility] Start: 08-13-2023 End: 08-13-2023 ambulatory Grecia Carrera Other [facility] Other Start: 08-06-2023 End: 08-06-2023 ambulatory David Mcfarland II Other [facility] Other Start: 08-06-2023 Telephone encounter David Mcfarland II [facility] Start: 08-01-2023 End: 08-01-2023 ambulatory Waqas Pierce Other [facility] Other Start: 08-01-2023 Telephone encounter Waqas Pierce [facility] Start: 07-31-2023 (Televisit) Televisit Waqas Pierce Christina [facility] Start: 07-31-2023 End: 07-31-2023 ambulatory Waqas Pierce Other [facility] Other Start: 07-26-2023 End: 07-26-2023 ambulatory Rolando Reyesdiff Other [facility] Other Start: 07-26-2023 Follow-up encounter Rolando Castellanos [facility] Start: 07-26-2023 Telephone encounter David Mcfarland II [facility] Start: 07-23-2023 ([facility] FU) [facility] F/ U [employer] [facility] Grecia Carrera [facility] Start: 07-23-2023 End: 07-23-2023 ambulatory Grecia Carrera Other [facility] Other Start: 07-09-2023 End: 07-09-2023 ambulatory Rolando Castellanos Other [facility] Other Start: 07-09-2023 Telephone encounter Rolando Vasquez [facility] Start: 06-27-2023 End: 06-27-2023 ambulatory David Mcfarland II Other [facility] Other Start: 06-27-2023 Office outpatient vi sit 25 minutes David Mcfarland II [facility] Start: 06-19-2023 End: 06-19-2023 ambulatory Waqas Pierce Other [facility] Other Start: 06-19-2023 Telephone encounter Waqas Kari [facility] Start: 06-18-2023 ([facility] FU) [facility] F/ U [employer] [facility] [facility] Grecia Carlt [facility] Start: 06-18-2023 End: 06-18-2023 ambulatory Grecia Henryt Other [facility] Other Start: 06-14-2023 End: 06-14-2023 ambulatory Rolando Castellanos Other [facility] Other Start: 06-14-2023 Follow-up encounter Rolando Reyesdienrike Vasquez [facility] Start: 06-11-2023 End: 06-11-2023 ambulatory Waqas Pierce Other [facility] Other Start: 06-11-2023 Encounter for genera l adult medical examination without abnormal findings Waqas Pierce [facility] Start: 06-11-2023 Periodic preventive med est patient 40-64yrs Waqas Pierce [facility] Start: 06-01-2023 End: 06-01-2023 ambulatory Waqas Pierce Other [facility] Other Start: 06-01-2023 Telephone encounter Waqas Pierce [facility] Start: 05-28-2023 End: 05-28-2023 ambulatory Waqas Pierce Other [facility] Other Start: 05-28-2023 Telephone encounter Waqas Pierce [facility] Start: 05-14-2023 ([facility] FU) [facility] F/ U [employer] [facility] [facility] Grecia Carlt [facility] Start: 05-14-2023 End: 05-14-2023 ambulatory Grecia Fitt Other [facility] Other Start: 04-16-2023 ([facility] FU) [facility] F/ U [employer] [facility] [facility] Grecia Carlt [facility] Start: 04-16-2023 End: 04-16-2023 ambulatory Grecia Fitt Other [facility] Other Start: 03-21-2023 End: 03-21-2023 ambulatory Waqas Pierce Other [facility] Other Start: 03-21-2023 Telephone encounter Waqas Pierce [facility] Start: 02-22-2023 ambulatory MER MAYBERRY . Facil ity:H1 Start: 02-13-2023 End: 02-14-2023 ambulatory AMY Iverson [facility] Facility:H1 Start: 01-31-2023 End: 01-31-2023 ambulatory Waqas Pierce Other [facility] Other Start: 01-31-2023 Telephone encounter Waqas Pierce [facility] Start: 01-30-2023 End: 01-31-2023 ambulatory AMY Iverson [facility] Facility:H1 Start: 01-19-2023 End: 01-20-[address] ROLANDO CASTELLANOS Facility:H1 Start: 01-11-2023 ([facility] WMNI) [facility] Init ial Provider Grecia Carrera [facility] Start: 01-11-2023 End: 01-11-2023 ambulatory Grecia Carrera Other [facility] Other Start: 01-09-2023 End: 01-10-2023 ambulatory AMY KASPER Facility:H1 Start: 12-25-2022 End: 12-25-2022 ambulatory Junior Mcgowan Other [facility] Other Start: 12-25-2022 Telephone encounter Junior DARNELL [facility] Start: 12-22-2022 End: 12-23-2022 ambulatory AMY Kishor [facility] Facility:H1 Start: 12-18-2022 End: 12-18-2022 ambulatory Junior Mcgowan Other [facility] Other Start: 12-18-2022 Telephone encounter Junior DARNELL [facility] Start: 12-15-2022 End: 12-15-2022 ambulatory Waqas Pierce Other [facility] Other Start: 12-15-2022 Telephone encounter Waqas Pierce [facility] Start: 12-12-2022 Telephone encounter Rolando Vasquez [facility] Start: 12-12-2022 End: 12-13-[address] WAQAS PIERCE I [facility] Other Start: 12-06-2022 Telephone encounter Waqas Pierce [facility] Start: 12-06-2022 End: 12-07-2022 ambulatory Efrain CORTES [place] [facility] Other Start: 12-01-2022 End: 12-02-[address] WAQAS PIERCE Facility: Start: 11-20-2022 End: 11-20-2022 ambulatory Rolando Castellanos Other [facility] Other Start: 11-20-2022 Telephone encounter Rolando Vasquez [facility] Start: 11-17-2022 Telephone encounter Waqas Pierce [facility] Start: 11-17-2022 End: 11-18-[address] WAQAS PIERCE [facility] Other Start: 11-16-2022 End: 11-16-2022 ambulatory Rolando Castellanos Other [facility] Other Start: 11-16-2022 Follow-up encounter Rolando Vasquez [facility] Start: 11-14-2022 End: 11-14-2022 ambulatory Grecia Carlt Other [facility] Other Start: 11-14-2022 IBT FOR OBESITY GROU P 2-10 30M Grecia Fitt [facility] Start: 11-13-2022 End: 11-13-2022 ambulatory Waqas Pierce Other [facility] Other Start: 11-13-2022 Telephone encounter Waqas Pierce [facility] Start: 11-08-2022 End: 11-09-2022 ambulatory Efrain Vaz SOPHIA Facility:[facility] Start: 11-08-2022 End: 11-08-2022 Patient encounter procedure Efrain Vaz SOPHIA [facility] [place] Start: 11-06-2022 End: 11-07-[address] WAQAS PIERCE Facility: Start: 11-05-2022 Encounter for gynecological examination (general) (routine) without abnormal findings DR FRIEDA LOCKE . [facility] Start: 11-03-2022 End: 11-04-[address] WAQAS PIERCE Facility:H1 Start: 10-30-2022 End: 10-31-[address] WAQAS PIERCE Facility: Start: 10-25-2022 End: 10-25-2022 ambulatory Waqas Pierce Other [facility] Other Start: 10-25-2022 Telephone encounter Waqas Pierce [facility] Start: 10-24-2022 End: 10-24-2022 ambulatory Rolando Castellanos Other [facility] Other Start: 10-24-2022 Telephone encounter Rolando Castellanos [facility] Start: 10-23-2022 Office outpatient vi sit 15 minutes Waqas Pierce [facility] Start: 10-23-2022 Telephone encounter Waqas Pierce [facility] Start: 10-23-2022 End: 10-24-2022 ambulatory NON STAFF [facility] Work Phone: Start: 10-23-2022 End: 10-23-2022 Departed Referred [facility]-Lab [place] Work Phone: Start: 10-20-2022 End: 10-20-2022 ambulatory Waqas Pierce Other [facility] Other Start: 10-20-2022 Telephone encounter Waqas Pierce [facility] Start: 10-17-2022 End: 10-18-[address] WAQAS PIERCE Facility:H1 Start: 10-13-2022 End: 10-13-2022 ambulatory Rachel Vela Other [facility] Other Start: 10-13-2022 Nutrition therapy Rachel Vela [facility] Start: 10-13-2022 Telephone encounter Rachel Vela [facility] Start: 10-13-2022 Registered Recurring [facility] Ctr-Weight Management Work Phone: Start: 10-10-2022 End: 10-11-[address] WAQAS PIERCE Facility:H1 Start: 10-06-2022 End: 10-06-2022 ambulatory Waqas Pierce Other [facility] Other Start: 10-06-2022 Telephone encounter Waqas Pierce [facility] Start: 10-04-2022 (Procedure) Short Junior Mcgowan [facility] Start: 10-04-2022 End: 10-04-2022 ambulatory Junior Mcgowan Other [facility] Other Start: 10-03-2022 End: 10-04-[address] WAQAS PIERCE [facility] Other Start: 10-03-2022 Telephone encounter Junior [facility] [place] Start: 09-27-2022 End: 09-27-2022 ambulatory Junior Mcgowan Other [facility] Other Start: 09-27-2022 Telephone encounter Junior King [facility] Start: 09-19-2022 End: 09-20-[address] WAQAS PIERCE Facility:H1 Start: 09-11-2022 End: 09-12-[address] WAQAS PIERCE Facility:H1 Start: 09-06-2022 End: 09-06-2022 Patient encounter procedure [facility] Start: 09-06-2022 End: 09-06-2022 ambulatory NON STAFF [facility] Work Phone: Start: 09-06-2022 FQHC visit new patient David davalos AMAURI [facility] Start: 08-28-2022 End: 08-29-[address] WAQAS PIERCE Facility:H1 Start: 08-18-2022 Adult health examination Grecia Fitt Other [facility] Other Start: 08-18-2022 Gynecological examination normal Grecia Fitt Other [facility] Other Start: 08-18-2022 End: 08-19-[address] [...] Encounter for other preprocedural examination AMY KASPER [facility] Start: 04-24-[address] WAQAS [...] Pre-procedure evalua tion check Grecia Carrera Other [facility] Other Start: 07-25-2021 Office outpatient vi sit 15 minutes Mallory Yuen [facility] Start: 06-23-2021 Office outpatient vi sit 25 minutes Junior Mcgowan [facility] [place] Start: 06-23-2021 Telephone encounter [facility] Start: 12-16-2020 End: 12-17-2020 ambulatory REFERRED SELF Facility:[facility] Procedures Date Procedure Procedure [...] WAQAS PIERCE Start: 04-24-2022 Insertion of Tissue Grain Merchandiser into Left Foot Subcutaneous Tissue and Fascia, [...] Activity Detail Author Start: 09-03-2023 Hospital admission [facility] Start: 09-03-2023 End: 09-03-2023 [facility] Start: 09-03-2023 Physical therapy procedure [facility] Start: 08-28-2023 [facility] Start: 08-28-2023 Bacteria identified in Urine by Culture [facility] aPTT in Platelet poo r plasma by Coagulation assay [facility] Bacteria identified in Urine by Culture [facility] CT Chest WO and W contrast IV [facility] XR Chest 2 Views [facility] XR Chest 2 Views [facility] Immunizations Immunization Date Immunization Notes Care Provider Fa cility 09-28-2023 COVID-19 (PFIZER) [id number] 12Y and older MD Waqas Pierce Work Phone: [facility] 09-28-2023 influenza, injectabl e, quadrivalent, preservative free MD Waqas Pierce Work Phone: [facility] 08-31-2022 COVID-19 (Pfizer) Bivalent Booster, Age 12Y+ [facility] 08-31-2022 influenza virus vaccine, unspecified formulation Efrain CORTES [facility] 08-31-2022 influenza, injectabl e, quadrivalent, preservative free MD Waqas Pierce Work Phone: [facility] 08-31-2022 SARS-CoV-2 (COVID-19 ) [id number] Efrain CORTES [facility] 02-24-2022 COVID-19 (Pfizer); Translations: [COVID-19 (Pfizer)] MD Waqas Pierce Work Phone: [facility] 02-24-2022 COVID-19 Comirnaty (Pfizer) Tri-Sucrose 12+ MD Waqas Pierce Work Phone: [facility] 02-24-2022 SARS-CoV-2 mRNA (xsgahnrfdfu-knaw-ebnhl se) vaccine Efrain NILSharan [facility] 11-20-2021 influenza, injectabl e, quadrivalent, preservative free MD Waqas Pierce Work Phone: [facility] 08-19-2021 COVID-19 (Pfizer) [facility] 08-19-2021 SARS-CoV-2 (COVID-19 ) mRNA BNT-162b2 vax Efrain SOPHIA [facility] 01-19-2021 COVID-19 (Pfizer) [facility] 01-19-2021 SARS-CoV-2 (COVID-19 ) mRNA BNT-162b2 vax Efrain NILL [facility] 12-31-2020 COVID-19 (Pfizer) [facility] 12-31-2020 SARS-CoV-2 (COVID-19 ) mRNA BNT-162b2 vax Efrain RABAGOL [facility] 06-25-2020 influenza virus vaccine, split virus (incl. purified surface antigen) Grecia Carrera Other [facility] Other 06-25-2020 influenza virus vaccine, unspecified formulation [facility] 06-25-2020 influenza, injectabl e, quadrivalent, preservative free MD Waqas Pierce Work Phone: [facility] 06-25-2020 pneumococcal polysaccharide vaccine, 23 valent Grecia Carrera Other [facility] 07-30-2019 influenza, injectabl e, quadrivalent, contains preservative MD Waqas Pierce Work Phone: [facility] 07-12-2018 influenza, injectabl e, quadrivalent, preservative free MD Waqas Pierce Work Phone: [facility] 11-15-2016 influenza, injectabl e, quadrivalent, preservative free MD Waqas Pierce Work Phone: [facility] Payers Date Payer Category Payer Private Health Insurance [id number] 2023 Private Health Insurance 2022 Self-pay [id number] 1960 Unknown [id number] 2.16.840.1.678288.3.579.2.647 1962 Unknown [id number] 2.16.840.1.713069.3.579.2.727 1962 Unknown [id number] 2.16.840.1.098485.3.579.2.727 1962 Unknown [id number] 2.16.840.1.555900.3.579.2.593 1962 Unknown [id number] 2.16.840.1.257877.3.579.2.593 1962 Unknown [id number] 2.16.840.1.333455.3.579.2.593 1962 Unknown [id number] 2.16.840.1.703833.3.579.2.593 1962 Unknown [id number] 2.16.840.1.424727.3.579.2.593 1962 Unknown [id number] 2.16.840.1.518531.3.579.2.593 1962 Unknown [id number] 2.16.840.1.173415.3.579.2.593 1962 Unknown [id number] 2.16.840.1.830125.3.579.2.593 1962 Unknown [id number] 2.16.840.1.568661.3.579.2.593 1962 Unknown [id number] 2.16.840.1.291269.3.579.2.593 1962 Unknown [id number] 2.16.840.1.277989.3.579.2.593 1962 Unknown [id number] 2.16.840.1.450011.3.579.2.593 1962 Unknown [id number] 2.16.840.1.384764.3.579.2.593 1962 Unknown [id number] 2.16.840.1.420506.3.579.2.593 1962 Unknown [id number] 2.16.840.1.425549.3.579.2.593 1962 Unknown [id number] 2.16.840.1.358835.3.579.2.593 1962 Unknown [id number] 2.16.840.1.511575.3.579.2.593 1962 Unknown [id number] 2.16.840.1.004306.3.579.2.593 1962 Unknown [id number] 2.16.840.1.958283.3.579.2.593 1962 Unknown [id number] 2.16.840.1.620046.3.579.2.593 1962 Unknown [id number] 2.16.840.1.856788.3.579.2.593 1962 Unknown [id number] 2.16.840.1.077243.3.579.2.593 1962 Unknown [id number] 2.16.840.1.385929.3.579.2.593 1962 Unknown [id number] 2.16.840.1.443412.3.579.2.593 1962 Unknown [id number] 2.16.840.1.900610.3.579.2.593 1962 Unknown [id number] 2.16.840.1.900216.3.579.2.593 1962 Unknown [id number] 2.16.840.1.525890.3.579.2.593 1962 Unknown [id number] 2.16.840.1.631238.3.579.2.593 1962 Unknown [id number] 2.16.840.1.294527.3.579.2.593 1962 Unknown [id number] 2.16.840.1.340757.3.579.2.593 1962 Unknown [id number] 2.16.840.1.943581.3.579.2.593 1962 Unknown [id number] 2.16.840.1.389730.3.579.2.593 1962 Unknown [id number] 2.16.840.1.369732.3.579.2.593 1962 Unknown [id number] 2.16.840.1.392612.3.579.2.593 1962 Unknown [id number] 2.16.840.1.131127.3.579.2.593 1962 Unknown [id number] 2.16.840.1.593875.3.579.2.593 1962 Unknown [id number] 2.16.840.1.858220.3.579.2.593 1962 Unknown [id number] 2.16.840.1.554026.3.579.2.593 1962 Unknown [id number] 2.16.840.1.676113.3.579.2.593 1962 Unknown [id number] 2.16.840.1.619129.3.579.2.593 1962 Unknown [id number] 2.16.840.1.246837.3.579.2.593 1962 Unknown [id number] 2.16.840.1.573240.3.579.2.593 1962 Unknown [id number] 2.16.840.1.313829.3.579.2.593 1962 Unknown [id number] 2.16.840.1.544385.3.579.2.196 1959 Unknown [id number] 2.16. 840.1.866690.19 1959 Unknown [id number] Medicare Medicare [id number] Unknown [id number] 2.16.840.1.482852.3.579.2.531 Worker's Compensation [id number] Worker's Compensation [facility] [id number] Social History Date Type Detail Facility Unknown if ever smoked [facility] Other Sex Assigned At [facility] Start: 1960 Sex Assigned At Female F [facility] Start: 11-08-2022 End: 01-03-2024 Tobacco smoking status Ex-smoker (finding) [facility] Comment on above: smoked one year, souleymane t 30 years ago Tobacco smoking status Never [facility] Comment on above: smoked one year, souleymane t 30 years ago Medical Equipment Procedure Code Equipment Code Equipment Origin al Text Equipment Identifier Dates Arthroplasty, hip, total, anterior approach Acetabular shell [id number] FDA Start: 09-03-2023 Arthroplasty, hip, total, anterior approach Ceramic femoral head prosthesis ()[id number] FDA Start: 09-03-2023 Arthroplasty, hip, total, anterior approach Coated hip femur prosthesis, modular ()[id number] FDA Start: 09-03-2023 Arthroplasty, hip, total, anterior approach Non-constrained polyethylene acetabular liner ()[id number] FDA Start: 09-03-2023 Start: 02-13-2023 Goals Date [...] Patient is following with hematology here at [facility] for anemia. No edema, orthopnea, or PND. [...] 1 TABLET BY MOUTH TWICE DAILY HYDROcodone-acetaminophen (Kramer) 5-325 mg tablet hydrocodone 5 mg-acetaminophen 325 [...] needed Anita Tafoya (more content not included)... [facility] 01-03-2024 Evaluation note Authored January 03, 2024 [...] given. 1. Prediabetes most recent A1c of 5.3-jkfcc-pgkn treatment with long-term healthy lifestyle change, decreased [...] join the gym and start with a seeing eye dog trainer. She should consider pool therapy/ water therapy. She needs to try to keep her trigger foods out of the house. She is to try to find healthier desserts and she tends to like to have 1 after each meal. Lately her cravings for sweets have been decreased. She continues to work with our business development engineer. She understands the need for preplanning, following the plate method, having healthy foods around, keeping unhealthy foods out of her house and eating healthy Whole Foods. She does not like to cook or prep. She understands that shopping, chopping and preplanning so that she can eat healthy foods is essential to her recovery. She will continue to work with our business development engineer. We could consider Wellbutrin in the future [...] TSH with her PCP. Author Estephania Mao [facility] Authored February 21, 2024 10:30 am [...] given. 1. Prediabetes most recent A1c of 5.1-hyhgb-fhod treatment with long-term healthy lifestyle change, decreased [...] join the gym and start with a seeing eye dog trainer. She should consider pool therapy/ water therapy. She needs to try to keep her trigger foods out of the house. She is to try to find healthier desserts and she tends to like to have 1 after each meal. Lately her cravings for sweets have been decreased. She continues to work with our business development engineer. She understands the need for preplanning, following the plate method, having healthy foods around, keeping unhealthy foods out of her house and eating healthy Whole Foods. She does not like to cook or prep. She understands that shopping, chopping and preplanning so that she can eat healthy foods is essential to her recovery. She will continue to work with our business development engineer. We could consider Wellbutrin in the future [...] lab work and TSH with her PCP. [facility] Work Phone: 1(782) 119-136204-04-2024 Evaluation note* Author Rolando Castellanos [facility] Authored January 03, 2024 11:3 9am [...] given. 1. Prediabetes most recent A1c of 5.9-hqfxb-jqal treatment with long-term healthy lifestyle change, decreased [...] join the gym and start with a seeing eye dog trainer. She should consider pool therapy/ water therapy. She needs to try to keep her trigger foods out of the house. She is to try to find healthier desserts and she tends to like to have 1 after each meal. Lately her cravings for sweets have been decreased. She continues to work with our business development engineer. She understands the need for preplanning, following the plate method, having healthy foods around, keeping unhealthy foods out of her house and eating healthy Whole Foods. She does not like to cook or prep. She understands that shopping, chopping and preplanning so that she can eat healthy foods is essential to her recovery. She will continue to work with our business development engineer. We could consider Wellbutrin in the future [...] TSH with her PCP. Author Rolando Castellanos [facility] Authored February 21, 2024 10:49 am [...] given. 1. Prediabetes most recent A1c of 5.7-bvkvm-kbrn treatment with long-term healthy lifestyle change, decreased [...] join the gym and start with a seeing eye dog trainer. She should consider pool therapy/ water therapy. [...] to continue to work closely with our cardiac exercise physiologist. She understands the need for preplanning, following the plate method, having healthy foods around, keeping unhealthy foods out of her house and eating healthy Whole Foods. She does not like to cook or prep. She understands that shopping, chopping and preplanning so that she can eat healthy foods is essential to her recovery. She will continue to work with our business development engineer. We could consider Wellbutrin in the future [...] lab work and TSH with her PCP. [facility] Work Phone: 1(767) 819-619802-22-2024 Evaluation note* Author Rolando Castellanos [facility] Authored November 22, 2023 12:47pm Highest [...] given. 1. Prediabetes most recent A1c of 5.7-eilvw-ybql treatment with long-term healthy lifestyle change, decreased [...] house. She continues to work with our business development engineer. She understands the need for preplanning, following the plate method, having healthy foods around, keeping unhealthy foods out of her house and eating healthy Whole Foods. She does not like to cook or prep. She understands that shopping, chopping and preplanning so that she can eat healthy foods is essential to her recovery. She will continue to work with our business development engineer. We could consider Wellbutrin in the future [...] lab work and TSH with her PCP. [facility] Work Phone: 1(206) 711-415802-22-2024 Evaluation note* Author Rolando Castellanos [facility] Authored November 22, 2023 12:47pm Highest [...] given. 1. Prediabetes most recent A1c of 5.0-awvjh-xumb treatment with long-term healthy lifestyle change, decreased [...] house. She continues to work with our business development engineer. She understands the need for preplanning, following the plate method, having healthy foods around, keeping unhealthy foods out of her house and eating healthy Whole Foods. She does not like to cook or prep. She understands that shopping, chopping and preplanning so that she can eat healthy foods is essential to her recovery. She will continue to work with our business development engineer. We could consider Wellbutrin in the future [...] TSH with her PCP. Author Estephania Mao [facility] Authored January 03, 2024 11:1 8am [...] given. 1. Prediabetes most recent A1c of 5.2-tfilo-ccub treatment with long-term healthy lifestyle change, decreased [...] house. She continues to work with our business development engineer. She understands the need for preplanning, following the plate method, having healthy foods around, keeping unhealthy foods out of her house and eating healthy [employer]. She does not like to cook or prep. She understands that shopping, chopping and preplanning so that she can eat healthy foods is essential to her recovery. She will continue to work with our business development engineer. We could consider Wellbutrin in the future [...] lab work and TSH with her PCP. [facility] Work Phone: 1(495) 165-285502-22-2024 Evaluation note* Author Rolando Castellanos [facility] Authored November 22, 2023 12:47pm Highest [...] given. 1. Prediabetes most recent A1c of 5.9-zluju-aqtp treatment with long-term healthy lifestyle change, decreased [...] house. She continues to work with our business development engineer. She understands the need for preplanning, following the plate method, having healthy foods around, keeping unhealthy foods out of her house and eating healthy [employer]. She does not like to cook or prep. She understands that shopping, chopping and preplanning so that she can eat healthy foods is essential to her recovery. She will continue to work with our business development engineer. We could consider Wellbutrin in the future [...] TSH with her PCP. Author Rolando Castellanos [facility] Authored January 03, 2024 11:3 9am [...] given. 1. Prediabetes most recent A1c of 5.1-kjauz-fdwl treatment with long-term healthy lifestyle change, decreased [...] join the gym and start with a seeing eye dog trainer. She should consider pool therapy/ water therapy. She needs to try to keep her trigger foods out of the house. She is to try to find healthier desserts and she tends to like to have 1 after each meal. Lately her cravings for sweets have been decreased. She continues to work with our business development engineer. She understands the need for preplanning, following the plate method, having healthy foods around, keeping unhealthy foods out of her house and eating healthy [employer]. She does not like to cook or prep. She understands that shopping, chopping and preplanning so that she can eat healthy foods is essential to her recovery. She will continue to work with our business development engineer. We could consider Wellbutrin in the future [...] lab work and TSH with her PCP. [facility] Work Phone: 1(154) 258-333902-01-2024 Evaluation note* Encounter Date Diagnosis Assessment Notes Treatment Notes Treatment Clinical Notes Nov, Hypothyroidism (ICD-10 - E03.9) Pt due for labs - will recheck Nov, Elevated fasting glucose (ICD-10 - R73.01) Continue healthy diet and exercise as able. [facility] Other 01-17-2024 Evaluation note* Encounter Date Diagnosis Assessment Notes Treatment Notes Treatment Clinical Notes Oct, Aftercare following joint replacement surgery (ICD-10 - Z47.1) Oct, Presence of right artificial hip joint (ICD-10 - Z96.641) Oct, Other [facility] at [facility] on 09/03/2023 Doing well Patient may continue increasing activities as tolerated. Continue taking rpou-csd-diiwrxb anti-inflammatorie s as needed for assistance with swelling and pain associated with the operative extremity. Follow-up in 6 weeks for repeat examination and repeat x-rays. [facility] Other 01-15-2024 Evaluation note* Encounter Date Diagnosis Assessment Notes Treatment Notes Treatment Clinical Notes Oct, Obesity (ICD-10 - E66.9) Oct, BMI 40.0-44.9, adult (ICD-10 - Z68.41) Oct, Other Summary of Visi t: (A) Discussed including more vegetables (B) Discussed plant proteins (C) Provided recipes [facility] Other 01-02-2024 Evaluation note* Encounter Date Diagnosis Assessment Notes Treatment Notes Treatment Clinical Notes Oct, Hypothyroidism (ICD-10 - E03.9) [facility] Other 12-20-2023 Evaluation note* Encounter Date Diagnosis [...] right artificial hip joint (ICD-10 - Z96.641) [facility] Other 12-19-2023 Evaluation note* Encounter Date Diagnosis [...] Aug, Metabolic syndrome X (ICD-10 - E88.81) [facility] Other 12-19-2023 Evaluation note* Author Rolando Castellanos [facility] Authored November 22, 2023 11:47am Highest [...] given. 1. Prediabetes most recent A1c of 5.8-wyrox-joom treatment with long-term healthy lifestyle change, decreased [...] house. She continues to work with our business development engineer. She understands the need for preplanning, following the plate method, having healthy foods around, keeping unhealthy foods out of her house and eating healthy [employer]. She does not like to cook or prep. She understands that shopping, chopping and preplanning so that she can eat healthy foods is essential to her recovery. She will continue to work with our business development engineer. We could consider Wellbutrin in the future [...] lab work and TSH with her PCP. [facility] Work Phone: 1(407) 935-285312-18-2023 Evaluation note* Encounter Date Diagnosis Assessment Notes Treatment Notes Treatment Clinical Notes Aug, Obesity (ICD-10 - E66.9) Aug, BMI 40.0-44.9, adult (ICD-10 - Z68.41) Aug, Other Summary of Visi t: (A) Discussed including more vegetables (B) Answered general nutrition-related questions (C) DIscussed options for including more water [facility] Other 12-01-2023 Evaluation note* Encounter Date Diagnosis [...] patient could proceed with surgery safely. The manufacturing plant manager was vital for surgery timing and [...] plans. Prolonged services time spent: 31 minutes [facility] Other 11-30-2023 Evaluation note* Encounter Date Diagnosis [...] therapy arrives. Joints Meeting Checklist - Pharmacy: [facility] to bed - Approach/Technique: anterior, Moca bed - Implants: Avenir Complete/G7; - Anesthesia: general vs spinal - Blocks: Fascia iliaca - Preop Antibiotics: Ancef and Vanco - TXA: yes-systemic - Positioning/OR Bed: supine on Moca bed - Intraop X-ray: yes - Alejandra: [...] above surgery. OARRS report generated and reviewed. [facility] Other 11-21-2023 Evaluation note* Encounter Date Diagnosis [...] symptoms. Any developing patterns. Stay well hydrated. [facility] Other 11-13-2023 Evaluation note* Encounter Date Diagnosis Assessment Notes Treatment Notes Treatment Clinical Notes Aug, Obesity (ICD-10 - E66.9) Aug, BMI 40.0-44.9, adult (ICD-10 - Z68.41) Aug, Other Summary of Visi t: (A) Continue current regimen (B) Much emotional support provided today (C) Encouraged continued follow up with counselor [facility] Other 10-31-2023 Evaluation note* Encounter Date Diagnosis Assessment Notes Treatment Notes Treatment Clinical Notes Jul, Acute laryngitis (ICD-10 - J04.0) Patient denies bacterial infection symptoms such as fever facial pressure or chills. Patient has not taken a COVID test. Discussed hmui-lee-jflxsss medications to use along with steroid pills that can improve her discomfort and laryngitis going forward. Advised that the steroids could elevate her blood sugar and to be mindful of that accordingly. 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 (ICD-10 - Z79.899) Jul, Other osteoporosis without current pathological fracture (ICD-10 - M81.8) Jul, Osteoarthritis of right hip (ICD-10 - M16.11) [facility] Other 10-23-2023 Evaluation note* Encounter Date Diagnosis Assessment Notes Treatment Notes Treatment Clinical Notes Jul, Obesity (ICD-10 - E66.9) Jul, BMI 40.0-44.9, adult (ICD-10 - Z68.41) Jul, Other Summary of Visi t: (A) Continue current regimen (B) Discussed ways to include more water (C) Discussed ways to include more vegetables [facility] Other 09-27-2023 Evaluation note* Encounter Date Diagnosis [...] the patient works on weight loss management. [facility] Other 09-18-2023 Evaluation note* Encounter Date Diagnosis [...] meals available that fit the plate method [facility] Other 09-14-2023 Evaluation note* Encounter Date Diagnosis [...] Jun, Metabolic syndrome X (ICD-10 - E88.81) [facility] Other 09-11-2023 Evaluation note* Encounter Date Diagnosis [...] E55.9) discussed supplementation. will check D level. [facility] Other 08-28-2023 Evaluation note* Encounter Date Diagnosis Assessment Notes Treatment Notes Treatment Clinical Notes May, Hypothyroidism (ICD-10 - E03.9) [facility] Other 08-14-2023 Evaluation note* Encounter Date Diagnosis Assessment Notes Treatment Notes Treatment Clinical Notes May, Obesity (ICD-10 - E66.9) May, BMI 40.0-44.9, adult (ICD-10 - Z68.41) May, Other Summary of Visi t: (A) Discussed cooking various foods (B) Find control in indulgences (C) Reviewed the plate method [facility] Other 07-17-2023 Evaluation note* Encounter Date Diagnosis Assessment Notes Treatment Notes Treatment Clinical Notes Mar, Obesity (ICD-10 - E66.9) Mar, BMI 40.0-44.9, adult (ICD-10 - Z68.41) Mar, Other Summary of Visi t: (A) Discussed cooking various foods (B) Find control in indulgences (C) emphasize self-care [facility] Other 05-17-2023 NotePROCEDURE: XR FOOT LT MIN [...] Electronically authenticated by: ARIELA SCHWAB Date: 2023-02-14 06:48[facility]04-13-2023 Evaluation note* Encounter Date Diagnosis [...] 2. Increase veggies, follow the plate method [facility] Other 03-14-2023 Evaluation note* Encounter Date Diagnosis Assessment Notes Treatment Notes Treatment Clinical Notes Nov, Abnormal laboratory test result (ICD-10 - R89.9) [facility] Other 03-08-2023 NoteOPERATIVE NOTE OPERATION DATE: 12/06/2022 [...] in 10 years. CC: Waqas Pierce M.D.[facility] [id number] Evaluation note* Encounter Date Diagnosis Assessment Notes [...] - M16.10) Nov, Hypertension (ICD-10 - I10) [facility] Other 02-14-2023 Evaluation note* Encounter Date Diagnosis [...] patient set personal goal using given handout. [facility] Other 02-08-2023 NoteChief Complaint consultation for colonoscopy [...] Years., 11/08/2022 Family History (more content not included)...[facility]Comment on above:Result Comment: Electronically Signed By: SOPHIA PINEDA, Efrain Layne\Date and Time Signed: 11/08/22 15:29 [id number] Evaluation note* Encounter Date Diagnosis Assessment Notes [...] - G47.33) presently compliant with machine, etc [facility] Other 01-13-2023 Evaluation note* Encounter Date Diagnosis [...] Patient is interested in meeting with our exercise planner, telephone encounter started to connect with her [...] the week. Encouraged to take advantage of exercise planner available at [facility] that can help work around limitations. She is open to meeting with our exercise planner for guidance on exercises she can complete with her severe limitations from her foot, hip and back. Telephone encounter started. Oct, Plantar fasciitis (ICD-10 - M72.2) Oct, Arthritis of hip (ICD-10 - M16.10) Oct, Impaired fasting glucose (ICD-10 - R73.01) [facility] Other 12-07-2022 Evaluation note* Encounter Date Diagnosis [...] while she works on her weight loss. [facility] Other 11-18-2022 NotePROCEDURE: XR HIP RT 2 [...] Electronically authenticated by: SHAWNEE KELLY Date: 2022-08-18 15:54[facility]11-18-2022 NotePROCEDURE: XR FOOT LT MIN [...] Electronically authenticated by: SHAWNEE KELLY Date: 2022-08-18 15:42[facility]09-16-2022 NotePROCEDURE: XR FOOT LT MIN [...] Electronically authenticated by: SHAWNEE KELLY Date: 2022-06-16 16:24[facility]09-16-2022 NotePROCEDURE: XR FOOT LT MIN [...] authenticated by: SHAWNEE KELLY Date: 2022-06-16 16:24[facility] [id number] NotePROCEDURE: XR FOOT LT MIN 3 VIEWS COMPARISON: 04/24/2022 HISTORY: Pain in left foot FINDINGS: BONES:Stable postsurgical changes with subtalar fusion, medial midfoot hindfoot fusion and spacer at the first tarsometatarsal joint. No mechanical failure. Severe degenerative changes. SOFT TISSUES:Extensive soft tissue swelling.Dorsal woundvac EFFUSION:None visible. OTHER: Negative. IMPRESSION: Stable degenerative and post surgical changes Electronically authenticated by: SHAWNEE KELLY Date: 2022-05-11 17:16[facility]07-25-2022 NotePROCEDURE: XR FOOT LT MIN [...] Electronically authenticated by: ARIELA SCHWAB Date: 2022-04-24 14:11[facility]07-25-2022 NotePROCEDURE: XR FOOT LT 2V [...] authenticated by: ARIELA SCHWAB Date: 2022-04-24 11:54[facility] [id number] NotePROCEDURE: XR FOOT LT MIN 3 VIEWS [...] authenticated by: ARIELA SCHWAB Date: 2022-04-22 20:52[facility] [id number] NotePROCEDURE: XR FOOT LT MIN 3 VIEWS [...] Electronically authenticated by: SHAWNEE KELLY Date: 2022-04-14 17:03[facility]10-25-2021 Evaluation note* Encounter Date Diagnosis Assessment [...] Patient care instructions given in writting by [facility] document. [facility] Other 09-23-2021 Evaluation note* Encounter Date Diagnosis [...] note writ ten by Safia Calderon CMA, Complaints Coordinator. Edited and approved by Dr. Junior Mcgowan MD. [facility] Other Evaluation + Plan note No data available for this section General Surgery [place] Evaluation noteNo InformationNort [facility] Other Evaluation noteNo assessment information available [facility] Work Phone: Evaluation note* Diagnosis Onset Date Resolution Status Change in voice acute Essential (primary) hypertension acute Family history of von Willebrand disease acute Hyperlipidemia acute Hypothyroidism acute [facility] Work Phone: Evaluation note* Diagnosis Onset Date Resolution Status Change in voice acute Essential (primary) hypertension acute Family history of von Willebrand disease acute Hyperlipidemia acute Hypothyroidism acute Medicare annual wellness visit, subsequent acute [facility] Work Phone: Histwpx general Narrative - Reported* Type Description Date Medical History DDD (degenerative disc disease), lumbar Surgical History hip replacement Surgical History tonsillectomy Surgical History carpal tunnel release bilateral Hospitalization History see above [facility] Other Hiskxug general Narrative - Reported* Type Description Date Medical History DDD (degenerative disc disease), lumbar Medical History spinal stenosis Surgical History hip replacement Surgical History tonsillectomy Surgical History carpal tunnel release bilateral Surgical History vein ablasion Hospitalization History see above [facility] Other Hispxlh general Narrative - Reported* Type Description Date Medical History DDD (degenerative disc disease), lumbar Medical History spinal stenosis Surgical History hip replacement Surgical History tonsillectomy Surgical History carpal tunnel release bilateral Surgical History vein ablasion Surgical History skin graft left foot Hospitalization History see above [facility] Other Hissqbl general Narrative - Reported* Type Description Date [...] x3 202 2 Hospitalization History see above [facility] Other History general Narrative - Reported* Type [...] HIp replacement 09/03/23 Hospitalization History see above [facility] Other Hospital Discharge instructions No data available for this section General Surgery [facility] Discharge instructions Additional Instructions Joint Replacement Discharge Instructions Your safety during your recovery process is important to us. Please seek immediate emergency care if you have sudden chest pain or shortness of breath. Additionally, please call our office at [phone] should any of the following occur: wound [...] walk without your walker and your healthcare liaison until the therapist checks you the following [...] and/or laxatives as directed. You may take evow-unf-zthjqvr Benadryl if itching occurs without a rash or hives. Icing and elevation will help relieve pain as well, do not underestimate the power of ice and elevation. We do recommend that you stop taking narcotic pain medications by 4-6 weeks after surgery and if necessary, continue to use anti-inflammatory medications such as Mobic (meloxicam), Celebrex (celecoxib), or an odza-eai-klhkvzl medication (Aleve, Motrin, Ibuprofen, etc). Driving an [...] feel free to call our office at [phone]. You are a priority of ours and we will not be upset with you if you call. We would much rather you call to confirm aspects of your recovery process as opposed to possibly hindering your recovery with inappropriate care. We are committed to providing you with the best care possible. David Mcfarland II, MD Updated 12/15/2022[facility] Work Phone: Progress note No data available for this section General Surgery [place] Reason for referral (narrative)* Reason Appt: Diagnosis 1 Depression (F32.9) Referral Organization [facility] Referring Provider First Name Rolando Referring Provider Last Name Jasmin Referring Provider Specialty Internal Me dicine Referred Organization [facility] Natalia Referred Address [address] [place],[phone] Referred Provider Specialty Miscellaneou s Referral Priority Routine General Notes Anna Jose 2022 01:07:39 PM >Please contact patient to schedule. [facility] Other Summary Purpose Family History No Family [...] RD WM f/u Sick-Did not test for [id number] Reason for Visit Sinusitis, acute max illary BMI 40.0-44.9, adult Fatty liver Hyperlipidemia Hypertension Pre-diabetes Aftercare following joint replacement Chest congestion Cough Chief Complaint Rd Wm F/U Obesity z47.[address] WM f/u Sinus infection WMN F/UP Z47.1 - Aftercare following joint replacement surg [address] WM f/u Sick-Did not test for [id number] Reason for Visit Sinusitis, acute max illary BMI 40.0-44.9, adult Fatty liver Hyperlipidemia Hypertension Pre-diabetes Aftercare following joint replacement Bronchitis Chest congestion Cough Chief Complaint Rd Wm F/U Obesity z47.[address] WM f/u BH Sinus infection WMN F/UP Z47.1 - Aftercare following joint replacement surg [address] WM f/u Sick-Did not test for [id number] RD WM f/u Reason for Visit Sinusitis, [...] RD WM f/u Sick-Did not test for [id number] RD WM f/u Habit forming Reason for Visit Sinusitis, acute max illary BMI 40.0-44.9, adult Fatty liver Hyperlipidemia Hypertension Pre-diabetes Aftercare following joint replacement Bronchitis Chest congestion Cough BMI 40.0-44.9, adult Fatty liver Hyperlipidemia Pre-diabetes Chief Complaint Z47.1 - Aftercare fo [facility] joint replacement surg [address] WM f/u Sick-Did not test for [id number] RD WM f/u Habit forming Reason for Visit Aftercare following joint replacement Bronchitis Chest congestion Cough BMI 40.0-44.9, adult Fatty liver Hyperlipidemia Pre-diabetes Chief Complaint BH RD WM f/u Sick-Did not test for [id number] RD WM f/u Habit forming Reason for [...] content) DATE CREATED AUTHOR 04/29/2021 [facility] DATE CREATED AUTHOR AUTHOR'S ORGANIZ ATION 12/20/2022 [facility] DATE CREATED AUTHOR AUTHOR'S ORGANIZ ATION 03/09/2023 [facility] DATE CREATED AUTHOR AUTHOR'S ORGANIZ ATION 08/19/2024 [facility] DATE CREATED AUTHOR AUTHOR'S ORGANIZ ATION 08/23/2024 [facility] DATE CREATED AUTHOR AUTHOR'S ORGANIZ ATION 08/30/2024 [facility] REASON FOR VISIT (unrecogniz [...] End: December 26, 2023 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 [employer] provides no warranty or guarantee of the accuracy or completeness of information in this document.
[2024-09-29 07:19] LABS: Glucometer 99 mg/dL (74-106)
[2024-09-29 07:21] VITALS: BP 142/94; PULSE 85; TEMP 36.6; O2SAT 97
[2024-09-29 09:14] VITALS: BP 174/80; BP 185/74; PULSE 84; PULSE 92; O2SAT 97
--- NOTE | 2024-09-29 09:17 | W.PM.PROCNOT ---
Date of procedure: 09/29/24 Pre-op diagnosis: Pain due to lumbar stenosis with neurogenic claudication Post-op diagnosis: same as pre-op Procedure: Procedure: Bilateral L3-4 transforaminal epidural steroid injection Medications: Bupivacaine 0.25% 2cc, lidocaine 2% 1cc, dexamethasone 10mg The patient was seen and examined in the preoperative holding area.? Informed consent was obtained and placed on the chart.? Patient was brought to the medical procedure unit and placed in the prone position where a timeout was completed verifying the correct patient, procedure site, position, and planned special equipment using sterile aseptic technique.? Under direct fluoroscopic visualization a 25-gauge Quincke tipped spinal needle was advanced at level left L3-4 to the designated neural foramen where contrast dye was injected to show adequate spread.? There was no evidence of vascular or adverse uptake.? Epidural spread was appreciated.? The above-mentioned injectate was then placed in a 1.5 mL aliquot preceded by negative aspiration.? The needle was removed. The same procedure, at the same level, was completed on the opposite side. ? Patient was taken to the postprocedural recovery area and monitored for an appropriate length of time before found suitable for discharge in the accompaniment of a responsible adult. Anesthesia: Local Surgeon: [place] Pathology: none sent Condition: stable Disposition: no change
[2024-09-29] MEDS: BUPIVACAINE HCL 0.25% PF 25 MG/10 ML VIAL INJ (09:18)
[2024-09-29] MEDS: 0.9 % SODIUM CHLORIDE 10 ML SYRINGE - SALINE FLUSH INJ (09:18)
[2024-09-29] MEDS: IOHEXOL 240 MG/ML - 10 ML VIAL 24 MG INJ (09:19)
[2024-09-29] MEDS: LIDOCAINE HCL 2% 400 MG/20 ML MDV 3 ML INJ (09:19)
[2024-09-29] MEDS: DEXAMETHASONE SOD PHOS 10 MG/ML VIAL INJ (09:19)
== END 2024-09-29 09:24 | disposition home or self-care (01) ==
LOC: SURGOUT 06:32
PROVIDERS: PCP Family Medicine; Visit Provider Anesthesiology
DX: M48.062 Spinal stenosis, lumbar region with neurogenic claudication (principal); J18.9 Pneumonia, unspecified organism; E11.9 Type 2 diabetes mellitus without complications
CPT/HCPCS: 36415; 64483; 71046; 82948; J0665; J1100; Q9966

== ENCOUNTER 2024-09-29 16:20 | Outpatient (OUT) | payer MEDICARE, SELFPAY ==
--- NOTE | 2024-09-29 | XR_ITS ---
The [address] [address] Patient Name: NAVARRO SMITH MRN: [id number] date: 1960 Sex: F Assigned Patient Location: [facility] Current Patient Location: Accession/Order Number: [id number] Exam Date: 09/29/2024 16:25 Report Date: 09/30/2024 07:49 At the request of: WAQAS PIERCE Procedure: XR chest 2V EXAMINATION: XR chest 2V HISTORY: Left lower lobe pneumonia COMPARISON: 06/17/2024 TECHNIQUE: PA and lateral FINDINGS: LUNGS: No significant pulmonary parenchymal abnormalities. VASCULATURE: No increased pulmonary vasculature. PLEURA: No pneumothorax, effusion, or pleural thickening. CARDIAC: No cardiomegaly or cardiac silhouette abnormality. MEDIASTINUM: No visible mass or adenopathy. BONES: No fracture or visible bone lesion. OTHER: Retrocardiac opacity consistent with a hiatal hernia, stable XR/XR chest 2V IMPRESSION: No acute cardiopulmonary process Electronically authenticated by: SHAWNEE RAPHAEL Date: 09/30/2024 07:49
--- OUTSIDE RECORDS SUMMARY | 2024-09-29 16:24 | XMS_ITS | CCD ---
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 Name Role Phone SELF, REFERRED Referring Unavailable DAVID LR Admitting Unavailable DAVID LR Attending Unavailable WAQAS PIERCE Primary Care Unavailable DAVID LR Surgeon Unavailable [facility] Procedure Practitioner Unavailab JUDSON Martinez Surgeon Unavailable [place] Procedure Practitioner Unavailab Junior Peterson Unavailable Mallory Yuen Unavailable NON STAFF Primary Care Provider UnavailMD David Merritt II Attending Provider [phone] David Mcfarland II Unavailable MD Waqas Pierce Primary Care Provider [phone] MD Waqas Pierce Attending Provider WAQAS PIERCE Primary Care Physician Waqas Pierce Unavailable Rachel Vela Unavailable Rolando Castellanos Unavailable Grecia Carrera Unavailable Efrain CORTES Attending Unavailable Efrain CORTES Attending Unavailable KARI, DR WAQAS Mendez Primary Care Unavailable AMY KASPER Attending Unavailable AMY KASPER Admitting Unavailable KRAI, DR WAQAS Mendez Primary Care Unavailable NILSharan [...] WAQAS Mendez Primary Care Unavailable SHAWANDA ., EMR IQBAL Attending Unavailable PIERCE, DR WAQAS Mendez [...] PIERCE, DR WAQAS Mendez Primary Care Unavailable [facility], DR ARIELA V[employer] Consult[employer] Unavailable [...] PIERCE, DR WAQAS Mendez Primary Care Unavailable [facility], AMY Iverson Attending Unavailable HIGHLUDAY, AMY Iverson [...] PIERCE, DR WAQAS Mendez Primary Care Unavailable [facility], AMY Iverson Admitting Unavailable MD David Mcfarland II Attending Provider MD Waqas Pierce Primary Care Provider NON STAFF Primary Care Provider Unavailsabino mendez aCrrie Perea Unavailable MD David Mcfarland II Attending Provider [phone] MD Waqas Pierce Primary Care Provider NON [...] Provider UnavailMD Marcin Chambers Attending Provider [phone] ANITA TAFOYA Attending Unavailable Sergio PINEDA, Angel Grande Attending Unavailable Bartolo II, David Gordillo Admitting Unavailabl e NON STAFF Primary Care Unavailable Mobile II, David Gordillo Attending Unavailabl e Mobile II, David Gordillo Attending Unavailabl e NON STAFF Primary Care Unavailable Mobile II, David Gordillo Admitting Unavailabl e Bartolo II, David Gordillo Admitting Unavailabl e PierceWaqas Primary Care Unavailable Bartolo II, David Gordillo Attending Unavailabl e Mobile II, David Gordillo Attending Unavailabl e Bartolo II, David Gordillo Admitting Unavailabl e NON STAFF Primary Care Unavailable Bartolo BAUGH, David Gordillo Admitting Unavailabl e PierceWaqas Primary Care Unavailable Mobile II, David Gordillo Attending Unavailabl e Mobile II, David Gordillo Attending Unavailabl e Mobile AMAURI, David Gordillo Admitting Unavailabl e PierceWaqas Primary Care Unavailable Allergies Allergy Classification Reported Allergen(s) Allergy Type Date of Onset Reaction(s) Facility metFORMIN (1 source) metFORMIN; Translations: [METFORMIN] Drug Allergy 12-17-19 21 [facility] Repository Penicillins (antibiotic) (1 source) Penicillin Drug Allergy 03-11-20 18 [facility] Repository Serotonin (1 source) Serotonin; Translations: [SEROTONIN] Drug Allergy 12-17-19 21 [facility] Repository (20 sources) Penicillin G Drug Allergy 11-01-19 24 [facility] (20 sources) CYMBOLTA Propensity to adverse reactions temporary blindness and couldnt feel herself breathing [employer] Other (20 sources) DULoxetine; Translations: [duloxetine] Drug Allergy 09-05-20 22 Impairment level of vision (disorder) General [facility] (20 sources) metFORMIN; Translations: [metformin] Drug Allergy 09-05-20 22 Abdominal mass (finding) [facility] Surgery [place] (20 sources) Penicillin; Translations: [penicillin] Drug Allergy 08-08-20 13 Eruption of skin (disorder) [facility] [place] (1 source) DULoxetine Drug Allergy [facility] Repository (1 source) metFORMIN Drug Allergy [facility] Repository (18 sources) Penicillins; Translations: [PENICILLINS] Drug allergy (disorder) 10-01-19 00 Rash [facility] Repository (20 sources) Rx Essentials Antidepressant *HEMATOPOIETIC AGENTS Propensity to adverse reactions [facility] Other (3 sources) Allergies Reconciled Propensity to adverse reactions 08-17-20 21 Unknown [facility] Other (20 sources) Substance with penicillin structure and antibacterial mechanism of action (substance) Drug allergy Unknown [facility] Other (20 sources) Substance with serotonin re-uptake inhibitor mechanism of action (substance) Drug allergy 09-04-20 12 SEROTONIN HCL [employer] [facility] [employer] Other (3 sources) patient allergy list reviewed by nurse or physicia Propensity to adverse reactions 12-09-19 14 Comment:Done [employer] Other (16 sources) Serotonin Drug Allergy 08-28-20 23 temporary blindness, couldn't feel self breath [facility] (13 sources) Rx Essentials Antidepressant * Allergy to substance 11-01-19 Comment:[facility] Medications Current Medications Medication Drug [...] DISCHARGE DOS: 09/03/23 Aug, Active Tylenol Active [id number] 200 actuat albuterol 0.09 mg/actuat metered dose [...] Ordered docusate sodium 50 mg / sennosides, correction 8.6 mg oral tablet (12 sources) Start: [...] Once a day Active polyethylene glycol 3350 [id number] mg powder for oral solution (13 sources) [...] (1999) (3 sources) take 1 capsule by [facility] once daily Vitamin D 50 MCG (1999) [...] 9:19am Start: 10-19-2019 take 1 capsule by [facility] every twelve hours Doxycycline Monohydrate 100 MG [...] 4 Chronic Other aftercare (2 sources) 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; Translations: [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 UNLOADING CURRENT DRUG THERAPY] Onset: 3 Episodic Other [...] 08-27-2024 XR hip RT min 2V(w/wo pelvis)* [facility] [address] [place] [address] XRay Report Signed Patient: Nicol Smith MR#: [id number] 9 : 1960 Acct:[id number] Age/Sex: 64 / F ADM Date: 08/27/24 Loc: [facility] Room: Type: [facility] Attending Dr: David Mcfarland II, MD Copies [...] Magdy Crooks M.D.08/27/2024 4:17 PM Dictation Location: [place] [address] Transcribed By: [facility] 08/27/241616 Dictated By: Magdy Crooks II, MD 08/27/241616 Signed By: 08/27/241616 Normal [facility] Office Visiton 07-25-2024 Follow-up visit [id number] Nicol Smith 1960 F Date Provider Department Center 07/25/2024 3848-ANITA TAFOYA CARD [facility] Family History Problem Relation Age of Onset Diabetes Father Heart failure Father Diabetes Paternal Grandmother Diabetes Paternal Grandfather Family Status - Relation Status Age at Father Paternal Grandmother Paternal Grandfather Level of Service:17039 UT OFFICE/OUTPATIENT ESTABLISHED MOD MDM 30 MIN Normal [facility] Albumin [Mass/volume] in Ser um or Plasmaon 07-15-2024 Albumin [Mass/Vol] 3.7 g/dL 2.9-4.4 [facility] Basophils Auto (Bld) [#/Vol] on 07-15-2024 Basophils (Bld) [#/Vol] 0.1 10 3/uL 0.0-0.[address] [facility] Basophils/100 WBC Auto (Bld) on 07-15-2024 Basophils/100 WBC (Bld) 1.5 % 0.2-2.[address] [facility] Eosinophils/100 WBC Auto (Bl d)on 07-15-2024 Eosinophils/100 WBC (Bld) 2.0 % 0.9-7.[address] [facility] Erythrocyte distribution wid th Auto (RBC) [Ratio]on 07-15-2024 Erythrocyte distribution width (RBC) [Ratio] 22.6 % High 11.0-15.[address] [facility] Estimated glomerular filtrat ion rate (GFR) non- Americanon 07-15-2024 GFR/1.73 sq M.predicted among non-blacks MDRD (S/P/Bld) [Vol rate/Area] 59 mL/min/{1.73_m2} Low >=60 mL/min/1.7 3m [address] [facility] Globulin Calc (S) [Mass/Vol] on 07-15-2024 Globulin (S) [Mass/Vol] 3.9 g/dL [facility] Hematocrit Auto (Bld) [Volum e fraction]on 07-15-2024 Hematocrit (Bld) [Volume fraction] 38.2 % 36.0-48.[address] [facility] Hemoglobin [Mass/volume] in Bloodon 07-15-2024 Hemoglobin (Bld) [Mass/Vol] 11.2 g/dL Low 12.0-16.[address] [facility] IgA [Mass/volume] in Serum o r Plasmaon 07-15-2024 IgA [Mass/Vol] 117 mg/dL 87-[address] [facility] IgG [Mass/volume] in Serum o r Plasmaon 07-15-2024 IgG [Mass/Vol] 938 mg/dL 586-[address] [facility] IgM [Mass/volume] in Serum o r Plasmaon 07-15-2024 IgM [Mass/Vol] 43 mg/dL 26-[address] [facility] Iron binding capacity [Mass/ volume] in Serum or Plasmaon 07-15-2024 Iron binding capacity [Mass/Vol] 457.0 ug/dL High 250.0-450. [address] [facility] Iron saturation [Mass Fracti on] in Serum or Plasmaon 07-15-2024 Iron saturation [Mass fraction] 3.7 % [facility] Laboratory - Chemistry and C hemistry - challengeon 07-15-2024 Albumin [Mass/Vol] 3.6 g/dL 3.4-5.0 [facility] ALP [Catalytic activity/Vol] 129 U/L High 46-[address] [facility] ALT [Catalytic activity/Vol] 28 U/L 14-[address] [facility] AST [Catalytic activity/Vol] 16 U/L 15-[address] [facility] Bilirubin [Mass/Vol] 0.3 mg/dL 0.2-1.0 [facility] Calcium [Mass/Vol] 9.4 mg/dL 8.5-10.1 [facility] Chloride [Moles/Vol] 107 mmol/L 98-107 [facility] CO2 [Moles/Vol] 23.5 mmol/L 21.0-32.0 [facility] Cobalamin (Vitamin B12) [Mass/Vol] 619 pg/mL 232-[address] [facility] Comment on above: Performed at: - [address] [id number] Director: Luis Mukherjee PhD, Phone: [phone] Creatinine [Mass/Vol] 0.96 mg/dL 0.55-1.02 [facility] Ferritin [Mass/Vol] 22.0 ng/mL 8.0-252.0 [facility] GFR/1.73 sq M.predicted MDRD (S/P/Bld) [Vol rate/Area] mL/min/{1.73_m2} >=60 mL/min/1.7 3m [address] [facility] Glucose [Mass/Vol] 170 mg/dL High 74-106 [facility] Iron [Mass/Vol] 17.0 ug/dL Low 50.0-170.[address] [facility] LDH [Catalytic activity/Vol] 205 U/L 81-[address] [facility] Potassium [Moles/Vol] 4.0 mmol/L 3.5-5.1 [facility] Protein [Mass/Vol] 0.2 g/dL Abnormal Not Observed [facility] Protein [Mass/Vol] 7.5 g/dL 6.4-8.2 [facility] Sodium [Moles/Vol] 143 mmol/L 136-145 [facility] Urea nitrogen [Mass/Vol] 18.0 mg/dL 7.0-18.[address] [facility] Urea nitrogen/Creatinine [Mass ratio] 18.8 mg/mg [facility] Laboratory - Hematology and Cell countson 07-15-2024 ESR (Bld) [Velocity] 62 mm/h High <=30 [facility] Immature granulocytes/100 WBC (Bld) 0.2 % 0.0-0.[address] [facility] Leukocytes [#/volume] correc janell for nucleated erythrocytes in Blood by Automated counon 07-15-2024 WBC corrected for nucl RBC Auto (Bld) [#/Vol] 5.5 10 3/uL 4.0-11.[address] [facility] Lymphocytes Auto (Bld) [#/Vo l]on 07-15-2024 Lymphocytes (Bld) [#/Vol] 1.6 10 3/uL 1.2-3.[address] [facility] Lymphocytes/100 WBC Auto (Bl d)on 07-15-2024 Lymphocytes/100 WBC (Bld) 28.8 % 20.5-60.[address] [facility] MCH Auto (RBC) [Entitic mass ]on 07-15-2024 MCH (RBC) [Entitic mass] 22.7 pg Low 26.7-34.[address] [facility] MCHC Auto (RBC) [Mass/Vol]on 07-15-2024 MCHC (RBC) [Mass/Vol] 29.3 g/dL Low 29.9-35.2 [facility] MCV Auto (RBC) [Entitic vol] on 07-15-2024 MCV (RBC) [Entitic vol] 77.5 fL Low 81.0-99.[address] [facility] Monocytes Auto (Bld) [#/Vol] on 07-15-2024 Monocytes (Bld) [#/Vol] 0.3 10 3/uL 0.3-0.[address] [facility] Monocytes/100 WBC Auto (Bld) on 07-15-2024 Monocytes/100 WBC (Bld) 5.9 % 1.7-12.[address] [facility] Neutrophils Auto (Bld) [#/Vo l]on 07-15-2024 Neutrophils (Bld) [#/Vol] 3.4 10 3/uL 1.4-6.[address] [facility] Neutrophils/100 WBC Auto (Bl d)on 07-15-2024 Neutrophils/100 WBC (Bld) 61.6 % 43.0-75.[address] [facility] No Panel Informationon 07-15 C-Reactive Protein, Quantitative <0.50 mg/dL <=0.[address] [facility] Eosinophils # (Auto) 0.1 10 3/uL 0.0-0.7 [facility] Folate 18.00 ng/mL 8.60-58.[address] [facility] Immature Granulocyte # (Auto) 0.01 10 3/uL 0.00-0.[address] [facility] Protein Electrophoresis Note Comment . [facility] Comment on above: Protein electrophore sis scan will follow via computer,mail, or it assistant delivery.Performed at: [address] [id number] Director: Luis Mukherjee PhD, Phone: [phone] Platelet mean volume Auto (B ld) [Entitic vol]on 07-15-2024 Platelet mean volume (Bld) [Entitic vol] 9.5 fL 9.5-13.[address] [facility] Platelets Auto (Bld) [#/Vol] on 07-15-2024 Platelets (Bld) [#/Vol] 412 10 3/uL 150-[address] [facility] Protein [Mass/volume] in Ser um or Plasmaon 07-15-2024 Protein [Mass/Vol] 7.0 g/dL 6.0-8.5 [facility] RBC Auto (Bld) [#/Vol]on RBC (Bld) [#/Vol] 4.93 10 6/uL 4.20-5.40 [facility] Comment on above: ANISOCYTOSIS 1+ Reticulocytes/100 RBC Auto ( Bld)on 07-15-2024 Reticulocytes/100 RBC (Bld) 2.69 % 0.60-3.[address] [facility] Serum globulin measurement ( mass/volume)on 07-15-2024 Globulin (S) [Mass/Vol] 3.3 g/dL 2.2-3.[address] [facility] Serum or plasma albumin/glob ulin mass ratioon 07-15-2024 Albumin/Globulin [Mass ratio] 0.9 {ratio} [facility] Albumin/Globulin [Mass ratio] 1.2 {ratio} 0.7-1.[address] [facility] Serum or plasma alpha 1 glob ulin measurement by electrophoresis (mass/volume)on 07-15-2024 Alpha 1 globulin Elph [Mass/Vol] 0.3 g/dL 0.0-0.[address] [facility] Serum or plasma alpha 2 glob ulin measurement by electrophoresis (mass/volume)on 07-15-2024 Alpha 2 globulin Elph [Mass/Vol] 0.9 g/dL 0.4-1.[address] [facility] Serum or plasma anion gap de terminationon 07-15-2024 Anion gap [Moles/Vol] 16.5 mmol/L [facility] Serum or plasma beta globuli n measurement by electrophoresis (mass/volume)on 07-15-2024 Beta globulin Elph [Mass/Vol] 1.1 g/dL 0.7-1.[address] [facility] Serum or plasma gamma globul in measurement by electrophoresis (mass/volume)on 07-15-2024 Gamma globulin Elph [Mass/Vol] 0.9 g/dL 0.4-1.[address] [facility] Serum or plasma immunoelectr ophoresis interpretationon 07-15-2024 Interpretation IEP [Interp] Comment Abnormal . 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 Activated partial thrombopla stin time (aPTT) in platelet poor plasma by coagulation aon 06-17-2024 aPTT Coag (PPP) [Time] 26.5 s 22.3-36.2 [facility] Basophils Auto (Bld) [#/Vol] on 06-17-2024 Basophils (Bld) [#/Vol] 0.1 10 3/uL 0.0-0.[address] [facility] Basophils/100 WBC Auto (Bld) on 06-17-2024 Basophils/100 WBC (Bld) 1.4 % 0.2-2.[address] [facility] Cholesterol in LDL Calc [Mas s/Vol]on 06-17-2024 Cholesterol in LDL [Mass/Vol] 72.0 mg/dL [facility] Comment on above: <100 mg/dl [id number] 0-129 mg/dl NEAR OR ABOVE [id number] mg/dl BORDERLINE [id number] mg/dl HIGH>190 mg/dl VERY HIGH Cholesterol in VLDL Calc [Ma ss/Vol]on 06-17-2024 Cholesterol in VLDL [Mass/Vol] 33.4 mg/dL [facility] Eosinophils/100 WBC Auto (Bl d)on 06-17-2024 Eosinophils/100 WBC (Bld) 1.8 % 0.9-7.[address] [facility] Erythrocyte distribution wid th Auto (RBC) [Ratio]on 06-17-2024 Erythrocyte distribution width (RBC) [Ratio] 17.7 % High 11.0-15.[address] [facility] Hematocrit Auto (Bld) [Volum e fraction]on 06-17-2024 Hematocrit (Bld) [Volume fraction] 33.7 % Low 36.0-48.[address] [facility] Hemoglobin [Mass/volume] in Bloodon 06-17-2024 Hemoglobin (Bld) [Mass/Vol] 9.8 g/dL Low 12.0-16.[address] [facility] INR in Platelet poor plasma by Coagulation assayon 06-17-2024 INR Coag (PPP) [Relative time] 0.95 {INR} [facility] Comment on above: DESIRED INR:2.0-3.0 CONDITIONS NOT LISTED BELOW2.5-3.5 FOR PROSTHETIC HEART VALVE REPLACEMENT2.5-3.5 RECURRENT THROMBOSIS Laboratory - Chemistry and C hemistry - challengeon 06-17-2024 Cholesterol [Mass/Vol] 171 mg/dL <=200 [facility] Cholesterol in HDL [Mass/Vol] 66 mg/dL High 40-[address] [facility] Comment on above: > or =60 mg/dl - LOW CARDIOVASCULAR RISK<40 mg/dl - HIGH CARDIOVASCULAR RISK Free T4 [Mass/Vol] 0.78 ng/dL 0.76-1.46 [facility] Triglyceride [Mass/Vol] 167 mg/dL High <=[address] [facility] TSH Qn 6.061 m[IU]/L High 0.358-3.[address] [facility] Laboratory - Hematology and Cell countson 06-17-2024 Immature granulocytes/100 WBC (Bld) 0.0 % 0.0-0.[address] [facility] Leukocytes [#/volume] correc janell for nucleated erythrocytes in Blood by Automated counon 06-17-2024 WBC corrected for nucl RBC Auto (Bld) [#/Vol] 5.0 10 3/uL 4.0-11.[address] [facility] Lymphocytes Auto (Bld) [#/Vo l]on 06-17-2024 Lymphocytes (Bld) [#/Vol] 1.9 10 3/uL 1.2-3.[address] [facility] Lymphocytes/100 WBC Auto (Bl d)on 06-17-2024 Lymphocytes/100 WBC (Bld) 37.1 % 20.5-60.[address] [facility] MCH Auto (RBC) [Entitic mass ]on 06-17-2024 MCH (RBC) [Entitic mass] 21.5 pg Low 26.7-34.[address] [facility] MCHC Auto (RBC) [Mass/Vol]on 06-17-2024 MCHC (RBC) [Mass/Vol] 29.1 g/dL Low 29.9-35.2 [facility] MCV Auto (RBC) [Entitic vol] on 06-17-2024 MCV (RBC) [Entitic vol] 74.1 fL Low 81.0-99.[address] [facility] Monocytes Auto (Bld) [#/Vol] on 06-17-2024 Monocytes (Bld) [#/Vol] 0.4 10 3/uL 0.3-0.[address] [facility] Monocytes/100 WBC Auto (Bld) on 06-17-2024 Monocytes/100 WBC (Bld) 8.0 % 1.7-12.[address] [facility] Neutrophils Auto (Bld) [#/Vo l]on 06-17-2024 Neutrophils (Bld) [#/Vol] 2.6 10 3/uL 1.4-6.[address] [facility] Neutrophils/100 WBC Auto (Bl d)on 06-17-2024 Neutrophils/100 WBC (Bld) 51.7 % 43.0-75.[address] [facility] No Panel Informationon 06-17 Eosinophils # (Auto) 0.1 10 3/uL 0.0-0.7 [facility] Immature Granulocyte # (Auto) 0.00 10 3/uL 0.00-0.[address] [facility] Platelet mean volume Auto (B ld) [Entitic vol]on 06-17-2024 Platelet mean volume (Bld) [Entitic vol] 9.2 fL Low 9.5-13.[address] [facility] Platelets Auto (Bld) [#/Vol] on 06-17-2024 Platelets (Bld) [#/Vol] 400 10 3/uL 150-[address] [facility] Prothrombin time (PT)on 06-01 PT Coag (PPP) [Time] 10.1 s 9.0-11.6 [facility] RBC Auto (Bld) [#/Vol]on RBC (Bld) [#/Vol] 4.55 10 6/uL 4.20-5.40 [facility] Serum or plasma total choles terol/high density lipoprotein (HDL) cholesterol mass bridget 06-17-2024 Cholesterol.total/Chol esterol in HDL [Mass ratio] 2.6 {ratio} [facility] Comment on above: 3.3 - 4.4 LOW RISK4. 4 - 7.1 AVERAGE RISK7.1 - 11.0 MODERATE RISK>11.0 HIGH RISK Estimated glomerular filtrat ion rate (GFR) non- Americanon 01-11-2024 GFR/1.73 sq M.predicted among non-blacks MDRD (S/P/Bld) [Vol rate/Area] mL/min/{1.73_m2} >=[address] [facility] Laboratory - Chemistry and C hemistry - challengeon 01-11-2024 Creatinine [Mass/Vol] 0.85 mg/dL 0.55-1.02 [facility] GFR/1.73 sq M.predicted MDRD (S/P/Bld) [Vol rate/Area] mL/min/{1.73_m2} >=[address] [facility] XR hip RT min 2V(w/wo pelvis )*on 11-28-2023 XR hip RT min 2V(w/wo pelvis)* [facility] [place] [address] XRay Report Signed Patient: Nicol Smith MR#: [id number] 9 : 1960 Acct:[id number] Age/Sex: 63 / F ADM Date: 11/28/23 Loc: [facility] Room: Type: [facility] Attending Dr: David Mcfarland II, MD Copies [...] Signed By: 11/28/23 1306 Normal [facility] XR hip RT min 2V(w/wo pelvis )*on 10-17-2023 XR hip RT min 2V(w/wo pelvis)* [facility] [place] [address] XRay Report Signed Patient: Nicol Smith MR#: [id number] 9 : 1960 Acct:[id number] Age/Sex: 63 / F ADM Date: 10/17/23 Loc: [facility] Room: Type: [facility] Attending Dr: David Mcfarland II, MD Copies [...] Signed By: 10/17/23 153 Normal [facility] XR hip RT min 2V(w/wo pelvis)* [facility] [employer] Other XR hip RT min 2V(w/wo pelvis)* [facility] [place] [employer] Other XR hip RT min 2V(w/wo pelvis)* [facility] [employer] Other XR hip RT min 2V(w/wo pelvis)* NataliaDARSHAN [address] [employer] Other XR hip RT min 2V(w/wo pelvis)* XRay Report [employer] Other XR hip RT min 2V(w/wo pelvis)* Signed [employer] Other XR hip RT min 2V(w/wo pelvis)* Patient: Nicol Smith MR#: [id number] [employer] Other XR hip RT min 2V(w/wo pelvis)* 9 [employer] Other XR hip RT min 2V(w/wo pelvis)* : 1960 Acct:[id number] [employer] Other XR hip RT min 2V(w/wo pelvis)* Age/Sex: 63 / F ADM Date: 10/17/23 [employer] Other XR hip RT min 2V(w/wo pelvis)* Loc: [facility] Room: Type: [facility] [employer] Other XR hip RT min 2V(w/wo pelvis)* Attending Dr: David Mcfarland II, MD [employer] Other XR hip RT min 2V(w/wo pelvis)* Copies to: David Mcfarland MD [employer] Other XR hip RT min 2V(w/wo pelvis)* Ordering Provider: David Mcfarland MD [employer] Other XR hip RT min 2V(w/wo pelvis)* Date of Service: 10/17/23 [employer] Other XR hip RT min 2V(w/wo pelvis)* XR/XR hip RT min 2V(w/wo pelvis)*: Aftercare following joint replacement [employer] Other XR hip RT min 2V(w/wo pelvis)* surgery;Presence of ri 3LM Other XR hip RT min 2V(w/wo pelvis)* 2 views right hip with single view pelvis plain film [employer] Other XR hip RT min 2V(w/wo pelvis)* COMPARISON: 09/03/2023 [employer] Other XR hip RT min 2V(w/wo pelvis)* HISTORY: Status post right total hip arthroplasty [employer] Other XR hip RT min 2V(w/wo pelvis)* ACUTE FINDINGS: None [employer] Other XR hip RT min 2V(w/wo pelvis)* DEGENERATIVE CHANGE: Unremarkable [employer] Other XR hip RT min 2V(w/wo pelvis)* SOFT TISSUE FINDINGS: Unremarkable [employer] Other XR hip RT min 2V(w/wo pelvis)* JOINT EFFUSION: None [employer] Other XR hip RT min 2V(w/wo pelvis)* POSTOP CHANGES: Stable bilateral hip arthroplasties. [employer] Other XR hip RT min 2V(w/wo pelvis)* BONY MINERALIZATION: Adequate [employer] Other XR hip RT min 2V(w/wo pelvis)* XR/XR hip RT min 2V(w/wo pelvis)* [employer] Other XR hip RT min 2V(w/wo pelvis)* IMPRESSION: Stable right hip arthroplasty. [employer] Other XR hip RT min 2V(w/wo pelvis)* Impression dictated by: Kane Katz M.D.10/17/2023 3:39 PM [employer] Other XR hip RT min 2V(w/wo pelvis)* Dictation Location: [place] [address] [employer] Other XR hip RT min 2V(w/wo pelvis)* Transcribed By: PWS 10/17/23 [facility] [employer] Other XR hip RT min 2V(w/wo pelvis)* Dictated By: Kane Katz DO 10/17/23 [facility] [employer] Other XR hip RT min 2V(w/wo pelvis)* Signed By: [employer] Other XR hip RT min 2V(w/wo pelvis)* 10/17/23 [facility] [employer] Other ABO/Rh Retypeon 09-03-2023 ABO/RH Recheck Result Positive Normal [facility] Comment on above: Result Comment: PERF ORMED BY: [address] [place] [address] PATHOLOGIST CENTERLESS GRINDER TENDER SUAD Killian 09-03-2023 L ----- Specimen: [id number] Received: 09/03/23 Status: GRACIELA Dominguez Num: [id number] Spec Type: Surgical Subm Dr: David Mcfarland MD Tissues: A Femoral Head - Other than Fracture (RT HIP) Procedures: HE/2, Gross/Micro L3, Decalcification Age/ Patient Sex Location Account Attending Physician Nicol Smith 63/F [place] [id number] David Mcfarland MD SPEC NUM: [id number] RECD: 09/03/23 STATUS: GRACIELA ESTRADAMaria Isabel NUM: [id number] SABRINA: 09/03/[address] [facility] [address]: David Mcfarland MD ENTERED: 09/03/[address] [facility] [address]: BEATRICE TYPE: Surgical DEPT: S [...] is taken. Gross examination only. CPT Codes 24151 Specimen: [id number] Received: 09/03/23 Status: GRACIELA Dominguez Num: [id number] Spec Type: Surgical Subm Dr: David Mcfarland MD Tissues: A Femoral Head - Other than Fracture (RT HIP) Procedures: HE/2, Gross/Micro L3, Decalcification Patient: Nicol Smith [id number] (Continued) Specimen: [id number] Received: 09/03/23 (Continued) Signed (signature on file) Dez Núñez MD 09/07/23 1345 Specimen: [id number] Received: 09/03/23 Status: GRACIELA Dominguez Num: [id number] Spec Type: Surgical Subm Dr: David Mcfarland MD Tissues: A Femoral Head - Other than Fracture (RT HIP) Procedures: HE/2, Gross/Micro L3, Decalcification Patient: RomeoNicol Gonsales [id number] (Continued) Specimen: [id number] Received: 09/03/23 (Continued) Maikol Photo Specimen: [id number] Received: 09/03/23 Status: GRACIELA Dominguez Num: [id number] Spec Type: Surgical Subm Dr: David Mcfarland MD Tissues: A Femoral Head - Other than Fracture (RT HIP) Procedures: HE/2, Gross/Micro L3, Decalcification Patient: Nicol Smith [id number] (Continued) Signed (signature on file) Dez Núñez MD 09/07/23 1345 Normal [facility] XR low pelvis w/RT x-table h ipon 09-03-2023 XR low pelvis w/RT x-table hip [facility] [place] [address] XRay Report Signed Patient: Nicol Smith MR#: [id number] 9 : 1960 Acct:[id number] Age/Sex: 63 / F ADM Date: 09/03/23 Loc: [place] Room: Type: [facility] Attending Dr: David Mcfarland II, MD Copies to: David Mcfarland MD Ordering Provider: David Mcfarland MD Date of Service: 09/03/23 XR/XR low pelvis w/RT x-table hip: Total Hip, due in PACU ([id number]) XR/XR hip RT 1V: ANTERIOR HIP IN [...] Anna Hull M.D.09/03/2023 11:53 AM Dictation Location: [place] [address] Transcribed By: [facility] 09/03/23 1153 Dictated By: Anna Hull MD 09/03/23 1150 Signed By: 09/03/23 1153 Normal [facility] Automated erythrocytes count in urine sediment (number/area)Ordered By: David Mcfarland on 08-28-2023 RBC Auto (Urine sed) [#/Area] 1-2 [HPF] 0-[address] [facility] Automated leukocytes count i n urine sediment (number/area)Ordered By: David Mcfarland on 08-28-2023 WBC Auto (Urine sed) [#/Area] 10-19 [HPF] 0-[address] [facility] Basophils Auto (Bld) [#/Vol] Ordered By: David Mcfarland on 08-28-2023 Basophils (Bld) [#/Vol] 0.1 10*3/uL 0.0-0.[address] [facility] Basophils/100 WBC Auto (Bld) Ordered By: David Mcfarland on 08-28-2023 Basophils/100 WBC (Bld) 1.1 % . [facility] Bilirubin Test strip Ql (U)O rdered By: David Mcfarland on 08-28-2023 Bilirubin Ql (U) Negative Negative [facility] Calcium [Mass/volume] in Ser um or PlasmaOrdered By: David Mcfarland on 08-28-2023 Calcium [Mass/Vol] 9.7 mg/dL 8.6-10.3 [facility] Carbon dioxide, total [Moles /volume] in Serum or PlasmaOrdered By: David Mcfarland on 08-28-2023 CO2 [Moles/Vol] 26.1 mmol/L 21.0-31.0 [facility] Chloride [Moles/volume] in S adela or PlasmaOrdered By: David Mcfarland on 08-28-2023 Chloride [Moles/Vol] 107 mmol/L 98-107 [facility] Color Auto (U)Ordered By: Arleth Mcfarland on 08-28-2023 Color (U) Yellow Yellow [facility] Creatinine [Mass/volume] in Serum or PlasmaOrdered By: David Mcfarland on 08-28-2023 Creatinine [Mass/Vol] 0.96 mg/dL 0.60-1.20 [facility] Eosinophils Auto (Bld) [#/Vo l]Ordered By: David Mcfarland on 08-28-2023 Eosinophils (Bld) [#/Vol] 0.1 10*3/uL 0.0-0.[address] [facility] Eosinophils/100 WBC Auto (Bl d)Ordered By: David Mcfarland on 08-28-2023 Eosinophils/100 WBC (Bld) 1.0 % . [facility] Erythrocyte distribution wid th Auto (RBC) [Ratio]Ordered By: David Mcfarland on 08-28-2023 Erythrocyte distribution width (RBC) [Ratio] 17.5 % 11.9-15.[address] [facility] Fructosamine [Moles/volume] in Serum or PlasmaOrdered By: David Mcfarland on 08-28-2023 Fructosamine [Moles/Vol] 205 umol/L 0-[address] [facility] Comment on above: Published reference interval for apparently healthysubjects between age 20 and 60 is 205 - 285 umol/L and in apoorly controlled diabetic population is 228 - 563 umol/Lwith a mean of 396 umol/L.Performed at: - [facility] [id number] Director: Luis Mukherjee PhD, Phone: [phone] Glucose [Mass/volume] in Ser um or PlasmaOrdered By: David Mcfarland on 08-28-2023 Glucose [Mass/Vol] 98 mg/dL 70-100 [facility] Comment on above: ADA recommended refe rence rangeRandom Glucose Reference Range is dependent on time and content of last meal. Glucose of more than 200 mg/dL in a nonstressed, ambulatory subject supports the diagnosis of Diabetes Mellitus. Hematocrit Auto (Bld) [Volum e fraction]Ordered By: David Mcfarland on 08-28-2023 Hematocrit (Bld) [Volume fraction] 36.9 % 34.0-46.[address] [facility] Hemoglobin [Mass/volume] in BloodOrdered By: David Mcfarland on 08-28-2023 Hemoglobin (Bld) [Mass/Vol] 11.9 g/dL 11.8-15.[address] [facility] Ketones Auto test strip (U) [Mass/Vol]Ordered By: David Mcfarland on 08-28-2023 Ketones (U) [Mass/Vol] Negative Negative [facility] - UrinalysisOrder ed By: David Mcfarland on 08-28-2023 Hyaline casts LM Ql (Urine sed) 0-8 [LPF] 0-[address] [facility] Leukocytes [#/volume] correc janell for nucleated erythrocytes in Blood by Automated counOrdered By: David Mcfarland on 08-28-2023 WBC corrected for nucl RBC Auto (Bld) [#/Vol] 6.4 10*3/uL 3.8-11.[address] [facility] Lymphocytes Auto (Bld) [#/Vo l]Ordered By: David Mcfarland on 08-28-2023 Lymphocytes (Bld) [#/Vol] 1.6 10*3/uL 1.00-4.[address] [facility] Lymphocytes/100 WBC Auto (Bl d)Ordered By: David Mcfarland on 08-28-2023 Lymphocytes/100 WBC (Bld) 25.3 % . [facility] MCH Auto (RBC) [Entitic mass ]Ordered By: David Mcfarland on 08-28-2023 MCH (RBC) [Entitic mass] 25.0 pg 24.7-34.[address] [facility] MCHC Auto (RBC) [Mass/Vol]Or dered By: David Mcfarland on 08-28-2023 MCHC (RBC) [Mass/Vol] 32.1 g/dL 32.0-35.0 [facility] MCV Auto (RBC) [Entitic vol] Ordered By: David Mcfarland on 08-28-2023 MCV (RBC) [Entitic vol] 78.0 fL 80-[address] [facility] Monocytes Auto (Bld) [#/Vol] Ordered By: David Mcfarland on 08-28-2023 Monocytes (Bld) [#/Vol] 0.5 10*3/uL 0.0-0.[address] [facility] Monocytes/100 WBC Auto (Bld) Ordered By: David Mcfarland on 08-28-2023 Monocytes/100 WBC (Bld) 7.6 % . [facility] Neutrophils Auto (Bld) [#/Vo l]Ordered By: David Mcfarland on 08-28-2023 Neutrophils (Bld) [#/Vol] 4.2 10*3/uL 1.8-7.[address] [facility] Neutrophils/100 WBC Auto (Bl d)Ordered By: David Mcfarland on 08-28-2023 Neutrophils/100 WBC (Bld) 65.0 % . [facility] Nitrite Test strip Ql (U)Ord ered By: David Mcfarland on 08-28-2023 Nitrite Ql (U) Negative Negative [facility] No Panel InformationOrdered By: David Mcfarland on 08-28-2023 Estimated GFR (CKD-EPI) > 60.0 mL/Min [facility] Creatinine Clearance (Chem N/A [facility] Nucleated erythrocytes [Pres ence] in Blood by Automated countOrdered By: David Mcfarland on 08-28-2023 Nucleated RBC Auto Ql (Bld) 0.1 /100{WBC} 0-0.[address] [facility] Platelet mean volume Auto (B ld) [Entitic vol]Ordered By: David Mcfarland on 08-28-2023 Platelet mean volume (Bld) [Entitic vol] 8.0 fL 6.3-10.[address] [facility] Platelets Auto (Bld) [#/Vol] Ordered By: David Mcfarland on 08-28-2023 Platelets (Bld) [#/Vol] 387 10*3/uL 150-[address] [facility] Potassium [Moles/volume] in Serum or PlasmaOrdered By: David Mcfarland on 08-28-2023 Potassium [Moles/Vol] 4.2 mmol/L 3.5-5.1 [facility] Protein Auto test strip (U) [Mass/Vol]Ordered By: David Mcfarland on 08-28-2023 Protein (U) [Mass/Vol] Negative Negative [facility] RBC Auto (Bld) [#/Vol]Ordere d By: David Mcfarland on 08-28-2023 RBC (Bld) [#/Vol] 4.74 10*6/uL 3.60-5.00 [facility] Serum or plasma anion gap de terminationOrdered By: David Mcfarland on 08-28-2023 Anion gap [Moles/Vol] 11.1 mmol/L 6.0-15.0 [facility] Sodium [Moles/volume] in Ser um or PlasmaOrdered By: David Mcfarland on 08-28-2023 Sodium [Moles/Vol] 140 mmol/L 136-145 [facility] Specific gravity Auto test s trip (U) [Rel density]Ordered By: David Mcfarland on 08-28-2023 Specific gravity (U) [Rel density] 1.020 1.001-1.[address] [facility] Squamous epithelial cells de tection in urine sediment by light microscopyOrdered By: David Mcfarland on 08-28-2023 Epithelial cells.squamous LM Ql (Urine sed) 3-4 [HPF] 0-[address] [facility] Urea nitrogen [Mass/volume] in Serum or PlasmaOrdered By: David Mcfarland on 08-28-2023 Urea nitrogen [Mass/Vol] 17 mg/dL 7-[address] [facility] Urine bacteria detection by automated methodOrdered By: David Mcfarland on 08-28-2023 Bacteria Auto Ql (U) None seen None Seen [facility] Urine clarity by refractomet ry automatedOrdered By: David Mcfarland on 08-28-2023 Clarity Refractometry automated (U) Clear Clear [facility] Urine culture routineOrdered By: David Mcfarland on 08-28-2023 Bacteria identified Cx Nom (U) [address] [facility] Urine glucose measurement by automated test strip (mass/volume)Ordered By: David Mcfarland on 08-28-2023 Glucose Auto test strip (U) [Mass/Vol] Normal mg/dL Normal [facility] Urine hemoglobin detection b y automated test stripOrdered By: David Mcfarland on 08-28-2023 Hemoglobin Auto test strip Ql (U) Negative Negative [facility] Urine leukocyte esterase det ection by automated test stripOrdered By: David Mcfarland on 08-28-2023 Leukocyte esterase Auto test strip Ql (U) 3+ Negative [facility] Urobilinogen Auto test strip (U) [Mass/Vol]Ordered By: David Mcfarland on 08-28-2023 Urobilinogen (U) [Mass/Vol] Normal mg/dL Normal [facility] WBC Auto (Bld) [#/Vol]Ordere d By: David Mcfarland on 08-28-2023 WBC (Bld) [#/Vol] 6.4 10*3/uL 3.8-11.6 [facility] pH Auto test strip (U)Ordere d By: David Mcfarland on 08-28-2023 pH (U) 5.5 [pH] 5.0-9.[address] [facility] TSHon 01-19-2023 TSH 5.502 uIU/mL Critically high 0.358-3.74 0 [facility] Comment on above: Performed By: #### T ####[facility] [address] [place], [place] [address]JhMiguel Darrick Cao GTT 2 HRon 12-12-2022 Glucose [Mass/Vol] 117 mg/dL Critically high 74-[address] [facility] Comment on above: Performed By: #### G TT2 ####[facility] [address] [place], [place] [address]Ef. Darrick Cao Glucose [Mass/Vol] 227 mg/dL Normal [facility] Comment on above: Performed By: #### G TT2 ####[facility] [address] [place], [place] [address]Mv. Darrick Cao Glucose [Mass/Vol] 121 mg/dL Normal [facility] Comment on above: Performed By: #### G TT2 ####[facility] [address] [place], [place] [address]Gu. Adryyakov Cao TSHon 12-12-2022 TSH 6.852 uIU/mL Critically high 0.358-3.74 0 [facility] Comment on above: Performed By: #### P OCGLUC #### [facility] [address] [place], [place] [address] Dr. Darrick Cao Outside Colonoscopyon 2022 Outside Colonoscopy [id number]#1.00CD:12 7 Normal [facility] Reminderson 12-07-2022 Reminders - From: Yu Waters LPN To: N - Clinical; Sent: 12/07/2022 08:47:38 EST Show up: 11/08/2032 07:00:00 EST Subject: colonoscopy recall Due Date/Time: 12/06/2032 07:00:00 EST Reminder/Recall Patient is due for screening colonoscopy 12/06/2032. Normal [facility] Consent for Procedure/Surger yon 11-09-2022 Consent for Procedure/Surgery [id number]#1.00CD:12 7 Normal [facility] Consent for Procedure/Surgery [id number]#1.00CD:12 7 Normal [facility] Facesheeton 11-09-2022 Facesheet [id number]#[id number]:12 7 Normal [facility] Ambulatory Visit Summaryon 0 11-08-2022 [...] Screening for malignant neoplasm of colon Normal [facility] MG MAMM SCREEN 3D BONNIE CADon 11-03-2022 MG MAMM SCREEN 3D BONNIE CAD Patient: NICOL SMITH Exam Date: 11/03/2022 : 1960 Gender:F Ordering : DR FRIEDA LOCKE . Admission #: [id number] Family : Order #: [id number] CLICK HERE TO VIEW EXAM RADIOLOGY REPORT [...] uterine cancer at age 52. LOCATION: [facility] BREAST COMPOSITION: Scattered areas fibroglandular [...] MD on 11/03/2022 at 11:04 Normal [facility] XR DEXA BONE DENSITYon 11-03 [...] by: ARIELA SCHWAB Date: 2022-11-03 11:11 Normal [facility] Comprehensive Metabolic Pane yuli 10-30-2022 Urea nitrogen [Mass/Vol] 20 mg/dL [employer] [facility] [employer] Other Comprehensive Metabolic Panel [facility] [employer] Other Comprehensive Metabolic Panel >60 [employer] Other Comprehensive Metabolic Panel 4.2 [employer] [facility] [employer] Other Albumin [Mass/Vol] 3.7 g/dL Normal 3.4-5.0 [employer] [facility] [employer] Other Comment on above: Performed By: #### T SH, CMP, LIPID ####[facility] [address] [place] [address]Dr. Darrick Cao Albumin/Globulin [Mass ratio] 0.9 {ratio} Normal [employer] [facility] [employer] Other Comment on above: Performed By: #### T SH, CMP, LIPID ####[facility] [address] [place] [id number]. Darrick Cao ALP [Catalytic activity/Vol] 112 U/L Normal 46-116 [facility] [employer] Other Comment on above: Performed By: #### T SH, CMP, LIPID ####[facility] [address] [place] [address]Dr. Darrick Cao ALT [Catalytic activity/Vol] 34 U/L Normal 14-59 [facility] [employer] Other Comment on above: Performed By: #### T SH, CMP, LIPID ####[facility] [address] [place], [place] [address]Wa. Darrick Cao AST [Catalytic activity/Vol] 17 U/L Normal 15-37 [facility] [employer] Other Comment on above: Performed By: #### T SH, CMP, LIPID ####[facility] [address] [place], [place] [address]Mv. Darrick Cao Bilirubin [Mass/Vol] 0.4 mg/dL Normal 0.2-1.0 [facility] [employer] Other Comment on above: Performed By: #### T SH, CMP, LIPID ####[facility] [address] [place] [address]Dr. Darrick Cao Calcium [Mass/Vol] 9.2 mg/dL Normal 8.5-10.1 [facility] [employer] Other Comment on above: Performed By: #### T SH, CMP, LIPID ####[facility] [address] [place], [place] [address]Dr. Darrick Cao Chloride [Moles/Vol] 105 mmol/L Normal 98-107 [facility] [employer] Other Comment on above: Performed By: #### T SH, CMP, LIPID ####[facility] [address] [place] [id number]. Darrick Cao CO2 [Moles/Vol] 27.0 mmol/L Normal 21.0-32.0 [facility] [employer] Other Comment on above: Performed By: #### T SH, CMP, LIPID ####[facility] [address] [place] [address]Dr. Darrick Cao Creatinine [Mass/Vol] 0.86 mg/dL Normal 0.55-1.02 [facility] [employer] Other Comment on above: Performed By: #### T SH, CMP, LIPID ####[facility] [address] [place], [place] [address]Dr. Darrick Cao Glucose [Mass/Vol] 114 mg/dL Critically high 74-106 [facility] [employer] Other Comment on above: Performed By: #### T SH, CMP, LIPID ####[facility] [address] [place] [address]Dr. Darrick Cao Potassium [Moles/Vol] 3.9 mmol/L Normal 3.5-5.1 [facility] [employer] Other Comment on above: Performed By: #### T SH, CMP, LIPID ####[facility] [address] [place] [address]Dr. Darrick Cao Protein [Mass/Vol] 7.9 g/dL Normal 6.4-8.2 [facility] [employer] Other Comment on above: Performed By: #### T SH, CMP, LIPID ####[facility] [address] [place], [place] [address]Dr. Darrick Cao Sodium [Moles/Vol] 143 mmol/L Normal 136-145 [facility] [employer] Other Comment on above: Performed By: #### T SH, CMP, LIPID ####[facility] [address] [place] [address]Dr. Darrick Cao FREE T4on 10-30-2022 Free T4 [Mass/Vol] 0.77 ng/dL Normal 0.76-1.46 [facility] Comment on above: Performed By: #### F T4 ####[facility] [address] [place] [id number]. Darrick Cao LIPID PROFILEon 10-30-2022 CHOL-HDL RATIO NORM SEE BELOW Normal [facility] Comment on above: Result Comment: 3.3 - 4.4 LOW RISK 4.4 - 7.1 AVERAGE RISK 7.1 - 11.0 MODERATE RISK >11.0 HIGH RISK Performed By: #### T SH, CMP, LIPID ####[facility] [address] [place] [address]Dr. Darrick Cao Cholesterol in LDL [Mass/Vol] 84.6 mg/dL Normal [facility] Comment on above: Performed By: #### T SH, CMP, LIPID ####[facility] [address] [place], [place] [address]Re. Darrick Cao HDL NORMAL > or = 60 mg/dl - LO W CARDIOVASCULAR RISK <40 mg/dl - HIGH CARDIOVASCULAR RISK Normal [facility] Comment on above: Performed By: #### T SH, CMP, LIPID ####[facility] [address] [place], [place] [address]Xv. Darrick Cao LDL CALC NORMAL SEE BELOW Normal [facility] [place] Comment on above: Result Comment: <100 mg/dl OPTIMAL 100 - 129 mg/dl NEAR OR ABOVE OPTIMAL 130 - 159 mg/dl BORDERLINE HIGH 160 - 189 mg/dl HIGH >190 mg/dl VERY HIGH Performed By: #### T JASON, CMP, LIPID ####[facility] [address] [place], [place] [address]De. Darrick Cao Triglyceride [Mass/Vol] 222 mg/dL Critically high <=150 [facility] Comment on above: Performed By: #### T JASON, CMP, LIPID ####[facility] [address] [place], [place] [address]Qg. Darrick Cao VLDL CALC 44.4 mg/dL Normal [facility] Comment on above: Performed By: #### T JASON, CMP, LIPID ####[facility] [address] [place], [place] [address]Ty. Darrick Cao Lipid Panelon 10-30-2022 Cholesterol in LDL Elph Qn 84.6 [employer] Other Lipid Panel 222 [employer] Other Lipid Panel 44.4 [employer] Other Cholesterol [Mass/Vol] 185 mg/dL Normal <=200 No rt [employer] Other Comment on above: Performed By: #### T SH, CMP, LIPID ####[facility] [address] [place], [place] [address]Pe. Darrick Cao Cholesterol in HDL [Mass/Vol] 56 mg/dL Normal 40-60 [employer] Other Comment on above: Performed By: #### T SH, CMP, LIPID ####[facility] [address] [place] [id number] Cao Cholesterol.total/Chol esterol in HDL [Mass ratio] 3.3 {ratio} Normal [employer] Other Comment on above: Performed By: #### T SH, CMP, LIPID ####[facility] [address] [place] [address]DrMiguel Cao PROF 14(COMP METB)on 023 Anion gap [Moles/Vol] 14.9 mmol/L Normal [facility] Comment on above: Performed By: #### T JASON, CMP, LIPID ####[facility] [address] [place] [address]DrMiguel Cao EGFR-AF CAMBODIAN >60 Normal >=60 [facility] Comment on above: Performed By: #### T JASON, CMP, LIPID ####[facility] [address] [place] [address]DrMiguel Cao EGFR-NON AF CAMBODIAN >60 Normal >=60 [facility] Comment on above: Performed By: #### T JASON, CMP, LIPID ####[facility] [address] [place] [address]DrMiguel Cao Globulin (S) [Mass/Vol] 4.2 g/dL Normal [facility] Comment on above: Performed By: #### T JASON, CMP, LIPID ####[facility] [address] [place] [id number] Cao Urea nitrogen [Mass/Vol] 20.0 mg/dL Critically high 7.0-18.0 [facility] Comment on above: Performed By: #### T SH, CMP, LIPID ####[facility] [address] [place] [address]DrMiguel Cao Urea nitrogen/Creatinine [Mass ratio] 23.3 mg/mg Normal [facility] Comment on above: Performed By: #### T SH, CMP, LIPID ####[facility] [address] [place] [id number] Cao TSHon 10-30-2022 TSH 6.415 uIU/mL Critically high 0.358-3.74 0 [facility] Comment on above: Performed By: #### T SH, CMP, LIPID ####[facility] [address] [place], [place] [address]DfMiguel Cao Thyroid Stim Hormone w/Rflxo n 10-30-2022 Thyroid Stim Hormone w/Rflx 6.415 [employer] Other VITAMIN B12on 10-30-2022 Cobalamin (Vitamin B12) [Mass/Vol] 664.0 pg/mL Normal 193.0-986. 0 [facility] Comment on above: Performed By: #### V ITB12 #### [facility] [address] [place], [place] [address] Dr. Darrick Cao Vitamin B12on 10-30-2022 Cobalamin (Vitamin B12) [Mass/Vol] 664 pg/mL [employer] Other Automated erythrocytes count in urine sediment (number/area)Ordered By: Waqas Pierce on 10-23-2022 RBC Auto (Urine sed) [#/Area] 0-1 [HPF] 0-[address] [facility] Automated leukocytes count i n urine sediment (number/area)Ordered By: Waqas Pierce on 10-23-2022 WBC Auto (Urine sed) [#/Area] 10-19 [HPF] 0-[address] [facility] [facility] Bilirubin Test strip Ql (U)O rdered By: Waqas Pierce on 10-23-2022 Bilirubin Ql (U) Negative Negative [facility] Color Auto (U)Ordered By: Shay Pierce on 10-23-2022 Color (U) Yellow Yellow [facility] Ketones Auto test strip (U) [Mass/Vol]Ordered By: Waqas Pierce on 10-23-2022 Ketones (U) [Mass/Vol] Negative Negative [facility] - UrinalysisOrder ed By: Waqas Pierce on 10-23-2022 Hyaline casts LM Ql (Urine sed) 0-8 [LPF] 0-[address] [facility] Nitrite Test strip Ql (U)Ord ered By: Waqas Pierce on 10-23-2022 Nitrite Ql (U) Negative Negative [facility] Protein Auto test strip (U) [Mass/Vol]Ordered By: Waqas Pierce on 10-23-2022 Protein (U) [Mass/Vol] Negative [facility] Specific gravity Auto test s trip (U) [Rel density]Ordered By: Waqas Pierce on 10-23-2022 Specific gravity (U) [Rel density] 1.016 1.001-1.[address] [facility] Squamous epithelial cells de tection in urine sediment by light microscopyOrdered By: Waqas Pierce on 10-23-2022 Epithelial cells.squamous LM Ql (Urine sed) 5-9 [HPF] 0-[address] [facility] Urine Cultureon 10-23-2022 Bacteria identified Cx Nom (U) [employer] Other Urine bacteria detection by automated methodOrdered By: Waqas Pierce on 10-23-2022 Bacteria Auto Ql (U) None seen None Seen [facility] Urine clarity by refractomet ry automatedOrdered By: Waqas Pierce on 10-23-2022 Clarity Refractometry automated (U) Clear Clear [facility] Urine glucose measurement by automated test strip (mass/volume)Ordered By: Waqas Pierce on 10-23-2022 Glucose Auto test strip (U) [Mass/Vol] Normal mg/dL Normal [facility] Urine hemoglobin detection b y automated test stripOrdered By: Waqas Pierce on 10-23-2022 Hemoglobin Auto test strip Ql (U) Negative Negative [facility] Urine leukocyte esterase det ection by automated test stripOrdered By: Waqas Pierce on 10-23-2022 Leukocyte esterase Auto test strip Ql (U) 3+ Negative [facility] Urobilinogen Auto test strip (U) [Mass/Vol]Ordered By: Waqas Pierce on 10-23-2022 Urobilinogen (U) [Mass/Vol] Normal mg/dL Normal [facility] pH Auto test strip (U)Ordere d By: Waqas iPerce on 10-23-2022 pH (U) 6.0 [pH] 5.0-9.[address] [facility] A1C HEMOGLOBINon 10-13-2022 HbA1c (Bld) [Mass fraction] 5.9 % [facility] [employer] Other HbA1c (Bld) [Mass fraction]o n 10-13-2022 A1C HEMOGLOBIN [facility] [employer] Other XR FOOT LT MIN 3 VIEWSon [...] by: ALEX RYAN Date: 2022-09-20 16:40 Normal [facility] XR LSPINE 2_3 VIEWSon 2021 XR LSPINE 2_3 VIEWS EXAMINATION: XR LSPI NE 2_3 VIEWS HISTORY: Low back pain COMPARISON: 09/26/2019 FINDINGS: BONES: Mild dextrocurvature. Moderate to severe spondylosis and facet osteoarthropathy DISC SPACES: Multilevel disc space narrowing most significant at L5-S1 PARASPINOUS: Negative. No paraspinous abnormality is seen. OTHER: Severe right hip osteoarthropathy with flmo-nh-imlb articulation. Left hip arthroplasty IMPRESSION: Moderate to severe degenerative changes Electronically authenticated by: SHAWNEE KELLY Date: 2022-08-20 11:47 Normal [facility] PAP ACOG PANEL 2: 30 to 65on 06-13-2022 . . Normal [facility] Comment on above: Result Comment: Perf ormed at: WB Performed By: #### [id number] ####[facility] [address] [place], [place] [address]KsMiguel Cao Age Gdln ACOG Testing 30-65 Normal [facility] Comment on above: Performed By: #### [id number] ####[facility] [address] [place] [address]Dr. Darrick Cao DIAGNOSIS: Comment Normal [facility] Comment on above: Result Comment: NEGA TIVE FOR INTRAEPITHELIAL LESION OR MALIGNANCY. THIS SPECIMEN WAS RESCREENED PART OF OUR [employer]NA[employer] LOADER PROGRAM. Performed at: WB Performed By: #### [id number] ####[facility] [address] [place], [place] [address]DrMiguel Cao HPV Aptima Negative Normal Negative [facility] Comment on above: Result Comment: This nucleic acid amplification test detects fourteen high-risk HPV types (16,18,31,33,35,39,45,51,52,56,58,59,66,68) without differentiation. Performed at: =G Performed By: #### [id number] ####[place] [address]Dr. Darrick Cao Methodology: Comment Normal [facility] Comment on above: Result Comment: This liquid based ThinPrep(R) pap test was screened with the use of an image guided system. Performed at: WB Performed By: #### [id number] ####[facility] [address] [place], [place] [address]Dr. Darrick Cao Note: Comment Normal [facility] Comment on above: Result Comment: The Pap smear is a screening test designed to aid in the detection of premalignant and malignant conditions of the uterine cervix. It is not a diagnostic procedure and should not be used as the sole means of detecting cervical cancer. Both false-positive and false-negative reports do occur. . Performed at: WB Performed By: #### [id number] ####[facility] [address] [place], [place] [address]Dr. Darrick Cao Performed by: Comment Normal [facility] Comment on above: Result Comment: Solange Ann, Dump Attendant (ASCP) Performed at: WB Performed By: #### [id number] ####[facility] [address] [place], [place] [address]DrMiguel Cao QC reviewed by: Comment Normal [facility] Comment on above: Result Comment: Navi Rush, Supervisory Dump Attendant (ASCP) Performed at: WB Performed By: #### [id number] ####[facility] [address] [place], [place] [address]YbMiguel Darrick Cao Specimen adequacy: Comment Normal [facility] Comment on above: Result Comment: Sati sfactory for evaluation. Endocervical and/or squamous metaplastic cells (endocervical component) are present. Performed at: WB Performed By: #### [id number] ####[facility] [address] [place], [place] [address]AsMiguel Darrick Cao US PELVIS AND TRANSVAGon US [...] ARIELA SCHWAB Date: 2022-06-13 14:50 Normal [facility] ACID FAST SMEAR AND CXon Acid Fast Culture Negative Normal [facility] Comment on above: Result Comment: No a liliya fast bacilli isolated after 6 weeks. Performed By: #### A FB ####[facility] [address] [place], [place] [address]ElMiguel Darrick Cao Acid Fast Smear Negative Normal [facility] Comment on above: Performed By: #### A FB ####[facility] [address] [place] [address]Dr. Darrick Cao [employer] Specimen Processing Tissue Grinding Normal [facility] Comment on above: Performed By: #### A FB ####[facility] [address] [place] [address]Dr. Darrick Cao FUNGAL CULTUREon 05-23-2022 Fungus (Mycology) Culture Final report Normal [facility] Comment on above: Performed By: #### C XFUN ####[facility] [address] [place] [address]Dr. Darrick Cao Fungus Stain Final report Normal [facility] Comment on above: Performed By: #### C XFUN ####[facility] [address] [place], [place] [address]Dr. Darrick Cao Result 1 Comment Normal [facility] Comment on above: Result Comment: MAYE/ Calcofluor preparation: no fungus observed. Performed By: #### C XFUN ####[facility] [address] [place], [place] [address]Dr. Darrick Cao Result Comment: No y east or mold isolated after 4 weeks. WOUND CULTUREon 04-28-2022 Bacteria identified Aer cx Nom (Unsp spec) Final report Normal [facility] Comment on above: Performed By: #### C XWND #### [facility] [address] [place] [address] Dr. Darrick Cao Result 1 Comment Normal [facility] Comment on above: Result Comment: No g rowth in 36 - 48 hours. Performed By: #### C XWND #### [facility] [address] [place] [address] Dr. Darrick Cao CULTURE WOUNDon 04-26-2022 CULTURE [...] S F Vancomycin 1 S F Normal [facility] Comment on above: Performed By: #### W OUNDCX ####[facility] [address] [place] [address]Dr. Darrick Cao CBC AUTO DIFFon 04-25-2022 BASO # 0.0 103/ul Normal 0.0-0.1 [facility] Comment on above: Performed By: #### C XWND #### [facility] [address] [place] [address] Dr. Darrick Cao Basophils/100 WBC (Bld) 0.5 % Normal 0.2-2.0 [facility] Comment on above: Performed By: #### C XWND #### [facility] [address] [place] [address] Dr. Darrick Cao EO # 0.1 103/ul Normal 0.0-0.7 [facility] Comment on above: Performed By: #### C XWND #### [facility] [address] [place] [address] Dr. Darrick Cao Eosinophils/100 WBC (Bld) 1.1 % Normal 0.9-7.0 [facility] Comment on above: Performed By: #### C XWND #### [facility] [address] [place] [address] Dr. Darrick Cao Erythrocyte distribution width (RBC) [Ratio] 15.8 % Critically high 11.0-15.0 [facility] Comment on above: Performed By: #### C XWND #### [facility] [address] [place] [address] Dr. Darrick Cao Hematocrit (Bld) [Volume fraction] 31.7 % Critically low 36.0-48.0 [facility] Comment on above: Performed By: #### C XWND #### [facility] [address] [place] [address] Dr. Darrick Cao Hemoglobin (Bld) [Mass/Vol] 10.1 g/dL Critically low 12.0-16.0 [facility] Comment on above: Performed By: #### C XWND #### [facility] [address] [place] [address] Dr. Darrick Cao IG # 0.02 10e3/ul Normal 0.00-0.03 [facility] Comment on above: Performed By: #### C XWND #### [facility] [address] [place] [address] Dr. Darrick Cao IG % 0.3 % Normal 0.0-0.5 [facility] Comment on above: Performed By: #### C XWND #### [facility] [address] [place] [address] Dr. Darrick Cao LYMPH # 1.8 103/ul Normal 1.2-3.8 [facility] Comment on above: Performed By: #### C XWND #### [facility] [address] [place] [address] Dr. Darrick Cao Lymphocytes/100 WBC (Bld) 24.3 % Normal 20.5-60.0 [facility] Comment on above: Performed By: #### C XWND #### [facility] [address] [place] [address] Dr. Darrick Cao MANUAL DIFF REQ NO Normal [facility] Comment on above: Performed By: #### C XWND #### [facility] [address] [place] [address] Dr. Darrick Cao MCH (RBC) [Entitic mass] 28.0 pg Normal 26.7-34.0 [facility] Comment on above: Performed By: #### C XWND #### [facility] [address] [place] [address] Dr. Darrick Cao MCHC (RBC) [Mass/Vol] 31.9 g/dL Normal 29.9-35.2 [facility] Comment on above: Performed By: #### C XWND #### [facility] [address] [place] [address] Dr. Darrick Cao MCV (RBC) [Entitic vol] 87.8 fL Normal 81.0-99.0 [facility] Comment on above: Performed By: #### C XWND #### [facility] [address] [place] [address] Dr. Darrick Cao MONO # 0.5 103/ul Normal 0.3-0.8 [facility] Comment on above: Performed By: #### C XWND #### [facility] [address] [place] [address] Dr. Darrick Cao Monocytes/100 WBC (Bld) 7.2 % Normal 1.7-12.0 [facility] Comment on above: Performed By: #### C XWND #### [facility] [address] [place] [address] Dr. Darrick Cao NEUT # 5.0 103/ul Normal 1.4-6.5 [facility] Comment on above: Performed By: #### C XWND #### [facility] [address] [place] [address] Dr. Darrick Cao Neutrophils/100 WBC (Bld) 66.6 % Normal 43.0-75.0 [facility] Comment on above: Performed By: #### C XWND #### [facility] [address] [place] [address] Dr. Darrick Cao Platelet mean volume (Bld) [Entitic vol] 9.6 fL Normal 9.5-13.5 [facility] Comment on above: Performed By: #### C XWND #### [facility] [address] [place] [address] Dr. Darrick Cao PLT 295 103/ul Normal 150-450 [facility] Comment on above: Performed By: #### C XWND #### [facility] [address] [place] [address] Dr. Darrick Cao RBC 3.61 106/ul Critically low 4.20-5.40 [facility] Comment on above: Performed By: #### C XWND #### [facility] [address] [place] [address] Dr. Darrick Cao WBC 7.5 103/ul Normal 4.0-11.0 [facility] Comment on above: Performed By: #### C XWND #### [facility] [address] [place] [address] Dr. Darrick Cao ER URINE PROFILEon 2 Bilirubin Ql (U) Negative Normal NEGATIVE [facility] Comment on above: Performed By: #### U MICRO, ERUR ####[facility] [address] [place] [address]Dr. Darrick Cao Clarity (U) CLEAR Normal CLEAR [facility] Comment on above: Performed By: #### U MICRO, ERUR ####[facility] [address] [place] [address]Dr. Darrick Cao Color (U) LT. YELLOW Normal YELLOW [facility] Comment on above: Performed By: #### U MICRO, ERUR ####[facility] [address] [place], [place] [address]Dr. Darrick CHAPA A micrscopic examina tion will be performed if indicated. Normal [facility] Comment on above: Performed By: #### U MICRO, ERUR ####[facility] [address] [place], [place] [address]Dr. Darrick Cao Glucose Ql (U) Negative Normal NEGATIVE [facility] Comment on above: Performed By: #### U MICRO, ERUR ####[facility] [address] [place], [place] [address]Dr. Darrick Cao Hemoglobin Ql (U) SMALL Abnormal NEGATIVE [facility] Comment on above: Performed By: #### U MICRO, ERUR ####[facility] [address] [place], [place] [address]Dr. Darrick Cao Ketones Ql (U) Negative Normal NEGATIVE [facility] Comment on above: Performed By: #### U MICRO, ERUR ####[facility] [address] [place], [place] [address]Dr. Darrick Cao LEUKOCYTES Negative Normal NEGATIVE [facility] Comment on above: Performed By: #### U MICRO, ERUR ####[facility] [address] [place], [place] [address]Dr. Darrick Cao Nitrite Ql (U) Negative Normal NEGATIVE [facility] Comment on above: Performed By: #### U MICRO, ERUR ####[facility] [address] [place] [address]Dr. Darrick Cao pH (U) 6.0 [pH] Normal 5-9 [facility] Comment on above: Performed By: #### U MICRO, ERUR ####[facility] [address] [place] [address]Dr. Darrick Cao SPEC GRAVITY 1.020 Normal 1.005-<=1. 025 [facility] Comment on above: Performed By: #### U MICRO, ERUR ####[facility] [address] [place] [address]Dr. Darrick Cao UA PROTEIN Negative Normal NEGATIVE/ TRACE [facility] Comment on above: Performed By: #### U MICRO, ERUR ####[facility] [address] [place] [address]Dr. Darrick Cao UR MICRO IND INDICATED Normal [facility] Comment on above: Performed By: #### U MICRO, ERUR ####[facility] [address] [place], [place] [address]Dr. Darrick Cao Urobilinogen Qn (U) 0.2 {Larissa'U}/dL Normal 0.2 - 1. 0 [facility] Comment on above: Performed By: #### U MICRO, ERUR ####[facility] [address] [place] [address]DrMiguel Cao POINT OF CARE GLUCOSEon 04-01 Glucose [Mass/Vol] 118 mg/dL Critically high 74-106 [facility] Comment on above: Performed By: #### P OCGLUC ####[facility] [address] [place] [address]DrMiguel Cao PROF 14(COMP METB)on 022 Albumin [Mass/Vol] 2.9 g/dL Critically low 3.4-5.0 [facility] Comment on above: Performed By: #### P OCGLUC #### [facility] [address] [place] [address] [address] Darrick Cao Albumin/Globulin [Mass ratio] 0.8 {ratio} Normal [facility] Comment on above: Performed By: #### P OCGLUC #### [facility] [address] [place] [address] [address] Darrick Cao ALP [Catalytic activity/Vol] 113 U/L Normal 46-116 [facility] Comment on above: Performed By: #### P OCGLUC #### [facility] [address] [place] [address] [address] Darrick Cao ALT [Catalytic activity/Vol] 56 U/L Normal 14-59 [facility] Comment on above: Performed By: #### P OCGLUC #### [facility] [address] [place] [address] [address] Darrick Cao Anion gap [Moles/Vol] 8.8 mmol/L Normal [facility] Comment on above: Performed By: #### P OCGLUC #### [facility] [address] [place] [address] [address] Darrick Cao AST [Catalytic activity/Vol] 30 U/L Normal 15-37 [facility] Comment on above: Performed By: #### P OCGLUC #### [facility] [address] [place] [address] [address] Darrick Cao Bilirubin [Mass/Vol] 0.3 mg/dL Normal 0.2-1.0 [facility] Comment on above: Performed By: #### P OCGLUC #### [facility] [address] [place] [address] [address] Darrick Cao Calcium [Mass/Vol] 8.6 mg/dL Normal 8.5-10.1 [facility] Comment on above: Performed By: #### P OCGLUC #### [facility] [address] [place] [address] [address] Darrick Cao Chloride [Moles/Vol] 105 mmol/L Normal 98-107 [facility] Comment on above: Performed By: #### P OCGLUC #### [facility] [address] [place] [address] [address] Darrick Cao CO2 [Moles/Vol] 30.4 mmol/L Normal 21.0-32.0 [facility] Comment on above: Performed By: #### P OCGLUC #### [facility] [address] [place] [address] [address] Darrick Cao Creatinine [Mass/Vol] 0.82 mg/dL Normal 0.55-1.02 [facility] Comment on above: Performed By: #### P OCGLUC #### [facility] [address] [place] [address] [address] Darrick Cao EGFR-AF CAMBODIAN >60 Normal >=60 [facility] Comment on above: Performed By: #### P OCGLUC #### [facility] [address] [place] [address] [address] Darrick Cao EGFR-NON AF CAMBODIAN >60 Normal >=60 [facility] Comment on above: Performed By: #### P OCGLUC #### [facility] [address] [place] [address] [address] Darrick Cao Globulin (S) [Mass/Vol] 3.6 g/dL Normal [facility] Comment on above: Performed By: #### P OCGLUC #### [facility] [address] [place] [address] [address] Darrick Cao Glucose [Mass/Vol] 103 mg/dL Normal 74-106 [facility] Comment on above: Performed By: #### P OCGLUC #### [facility] [address] [place] [address] [address] Darrick Cao Potassium [Moles/Vol] 4.2 mmol/L Normal 3.5-5.1 [facility] Comment on above: Performed By: #### P OCGLUC #### [facility] [address] [place] [address] [address] Darrick Cao Protein [Mass/Vol] 6.5 g/dL Normal 6.4-8.2 [facility] Comment on above: Performed By: #### P OCGLUC #### [facility] [address] [place] [address] [address] Darrick Cao Sodium [Moles/Vol] 140 mmol/L Normal 136-145 [facility] Comment on above: Performed By: #### P OCGLUC #### [facility] [address] [place] [address] [address] Darrick Cao Urea nitrogen [Mass/Vol] 11.0 mg/dL Normal 7.0-18.0 [facility] Comment on above: Performed By: #### P OCGLUC #### [facility] [address] [place] [address] [address] Darrick Cao Urea nitrogen/Creatinine [Mass ratio] 13.4 mg/mg Normal [facility] Comment on above: Performed By: #### P OCGLUC #### [facility] [address] [place] [address] [address] Darrick Cao URINE MICROSCOPIC ONLYon BACTERIA NONE SEEN Normal NONE SEEN [facility] Comment on above: Performed By: #### U MICRO, ERUR ####[facility] [address] [place] [address]DrMiguel Cao Bacteria identified Cx Nom (U) NOT INDICATED Normal [facility] Comment on above: Performed By: #### U MICRO, ERUR ####[facility] [address] [place] [address]Dr. Darrick Cao CAST NONE SEEN Normal NONE SEEN [facility] Comment on above: Performed By: #### U MICRO, ERUR ####[facility] [address] [place] [address]DrMiguel Cao Crystals LM Nom (Urine sed) NONE SEEN Normal NONE SEEN [facility] Comment on above: Performed By: #### U MICRO, ERUR ####[facility] [address] [place] [address]Dr. Darrick Cao Epithelial cells LM Ql (Urine sed) RARE Normal NONE SEEN /RARE [facility] Comment on above: Performed By: #### U MICRO, ERUR ####[facility] [address] [place] [address]Dr. Darrick Cao MUCOUS NONE SEEN Normal NONE SEEN [facility] Comment on above: Performed By: #### U MICRO, ERUR ####[facility] [address] [place] [address]Dr. Darrick Cao RBC 5-10 Abnormal 0-2 [facility] Comment on above: Performed By: #### U MICRO, ERUR ####[facility] [address] [place], [place] [address]JaDr. Darrick Cao WBC 0-2 Abnormal NONE SEEN [facility] Comment on above: Performed By: #### U MICRO, ERUR ####[facility] [address] [place], [place] [address]MjDr. Darrick Cao XR CHEST 2 Von 04-25-2022 [...] AMY FOWLER Date: 2022-04-25 20:07 Normal [facility] CBC AUTO DIFFon 04-24-2022 BASO # 0.1 103/ul Normal 0.0-0.1 [facility] Comment on above: Performed By: #### P OCGLUC #### [facility] [address] [address] [address] Darrick Cao Basophils/100 WBC (Bld) 0.8 % Normal 0.2-2.0 [facility] Comment on above: Performed By: #### P OCGLUC #### [facility] [address] [address] [address] Darrick Cao EO # 0.1 103/ul Normal 0.0-0.7 [facility] Comment on above: Performed By: #### P OCGLUC #### [facility] [address] [address] [address] Darrick Cao Eosinophils/100 WBC (Bld) 1.9 % Normal 0.9-7.0 [facility] Comment on above: Performed By: #### P OCGLUC #### [facility] [address] [address] [address] Darrick Cao Erythrocyte distribution width (RBC) [Ratio] 15.6 % Critically high 11.0-15.0 [facility] Comment on above: Performed By: #### P OCGLUC #### [facility] [address] [address] [address] Darrick Cao Hematocrit (Bld) [Volume fraction] 35.4 % Critically low 36.0-48.0 [facility] Comment on above: Performed By: #### P OCGLUC #### [facility] [address] [address] [address] Darrick Cao Hemoglobin (Bld) [Mass/Vol] 11.4 g/dL Critically low 12.0-16.0 [facility] Comment on above: Performed By: #### P OCGLUC #### [facility] [address] [place] [address] Dr. Darrick Cao IG # 0.02 10e3/ul Normal 0.00-0.03 [facility] Comment on above: Performed By: #### P OCGLUC #### [facility] [address] [address] [address] Darrick Cao IG % 0.3 % Normal 0.0-0.5 [facility] Comment on above: Performed By: #### P OCGLUC #### [facility] [address] [address] [address] Darrick Cao LYMPH # 1.9 103/ul Normal 1.2-3.8 [facility] Comment on above: Performed By: #### P OCGLUC #### [facility] [address] [place] [address] Dr. Darrick Cao Lymphocytes/100 WBC (Bld) 30.2 % Normal 20.5-60.0 [facility] Comment on above: Performed By: #### P OCGLUC #### [facility] [address] [address] [address] Darrick Cao MANUAL DIFF REQ NO Normal [facility] Comment on above: Performed By: #### P OCGLUC #### [facility] [address] [place] [address] Dr. Darrick Cao MCH (RBC) [Entitic mass] 27.9 pg Normal 26.7-34.0 [facility] Comment on above: Performed By: #### P OCGLUC #### [facility] [address] [address] [address] Darrick Cao MCHC (RBC) [Mass/Vol] 32.2 g/dL Normal 29.9-35.2 [facility] Comment on above: Performed By: #### P OCGLUC #### [facility] [address] [address] [address] Darrick Cao MCV (RBC) [Entitic vol] 86.6 fL Normal 81.0-99.0 [facility] Comment on above: Performed By: #### P OCGLUC #### [facility] [address] [address] [address] Darrick Cao MONO # 0.6 103/ul Normal 0.3-0.8 [facility] Comment on above: Performed By: #### P OCGLUC #### [facility] [address] [place] [address] Dr. Darrick Cao Monocytes/100 WBC (Bld) 9.0 % Normal 1.7-12.0 [facility] Comment on above: Performed By: #### P OCGLUC #### [facility] [address] [place] [address] Dr. Darrick Cao NEUT # 3.7 103/ul Normal 1.4-6.5 [facility] Comment on above: Performed By: #### P OCGLUC #### [facility] [address] [place] [address] Dr. Darrick Cao Neutrophils/100 WBC (Bld) 57.8 % Normal 43.0-75.0 [facility] Comment on above: Performed By: #### P OCGLUC #### [facility] [address] [address] [address] Darrick Cao Platelet mean volume (Bld) [Entitic vol] 9.5 fL Normal 9.5-13.5 [facility] Comment on above: Performed By: #### P OCGLUC #### [facility] [address] [place] [address] Dr. Darrick Cao PLT 256 103/ul Normal 150-450 [facility] Comment on above: Performed By: #### P OCGLUC #### [facility] [address] [address] [address] Darrick Cao RBC 4.09 106/ul Critically low 4.20-5.40 [facility] Comment on above: Performed By: #### P OCGLUC #### [facility] [address] [address] [address] Darrick Cao WBC 6.3 103/ul Normal 4.0-11.0 [facility] Comment on above: Performed By: #### P OCGLUC #### [facility] [address] [address] [address] Darrick Cao GRAM STAINon 04-24-2022 COMMENTS NO ORGANISMS OBSERVED Normal [facility] Comment on above: Performed By: #### C XWND #### [facility] [address] [place] [address] Dr. Darrick Cao DIPHTHEROIDS Normal [facility] Comment on above: Performed By: #### C XWND #### [facility] [address] [address] [address] Darrick Cao EPITHELIALS Normal [facility] Comment on above: Performed By: #### C XWND #### [facility] [address] [address] [address] Darrick Cao FUNGAL ELEMENTS Normal [facility] Comment on above: Performed By: #### C XWND #### [facility] [address] [address] [address] Darrick SOLOMON NEG BACILLI Normal [facility] Comment on above: Performed By: #### C XWND #### [facility] [address] [address] [address] Darrick SOLOMON NEG DIPPLOCOCCI Normal [facility] Comment on above: Performed By: #### C XWND #### [facility] [address] [place] [address] Dr. Darrick Cao GRAM POS BACILLI Normal [facility] Comment on above: Performed By: #### C XWND #### [facility] [address] [address] [address] Darrick Cao GRAM POSITIVE COCCI Normal [facility] Comment on above: Performed By: #### C XWND #### [facility] [address] [address] [address] Darrick Cao GRAM STAIN SOURCE Post irrigation left foot Normal [facility] Comment on above: Performed By: #### C XWND #### [facility] [address] [address] [address] Darrick Cao GS_DIPTH Normal [facility] Comment on above: Performed By: #### C XWND #### [facility] [address] [address] [address] Darrick Cao WBC NONE SEEN [facility] Comment on above: Performed By: #### C XWND #### [facility] [address] [address] [address] Darrick Cao POINT OF CARE GLUCOSEon 04-01 Glucose [Mass/Vol] 132 mg/dL Critically high 74-106 [facility] Comment on above: Performed By: #### P OCGLUC #### [facility] [address] [address] [address] Darrick Cao Glucose [Mass/Vol] 105 mg/dL Normal 74-106 [facility] Comment on above: Performed By: #### P OCGLUC ####[facility] [id number] [address]Dr. Darrick Cao PROF 14(COMP METB)on 022 Albumin [Mass/Vol] 2.9 g/dL Critically low 3.4-5.0 Th e [facility] Comment on above: Performed By: #### P OCGLUC #### [facility] [address] [address] [address] Darrick Cao Albumin/Globulin [Mass ratio] 0.8 {ratio} Normal [facility] Comment on above: Performed By: #### P OCGLUC #### [facility] [address] [address] [address] Darrick Cao ALP [Catalytic activity/Vol] 122 U/L Critically high 46-116 [facility] Comment on above: Performed By: #### P OCGLUC #### [facility] [address] [address] [address] Darrick Cao ALT [Catalytic activity/Vol] 65 U/L Critically high 14-59 [facility] Comment on above: Performed By: #### P OCGLUC #### [facility] [address] [address] [address] Darrick Cao Anion gap [Moles/Vol] 12.2 mmol/L Normal [facility] Comment on above: Performed By: #### P OCGLUC #### [facility] [address] [address] [address] Darrick Cao AST [Catalytic activity/Vol] 28 U/L Normal 15-37 [facility] Comment on above: Performed By: #### P OCGLUC #### [facility] [address] [address] [address] Darrick Cao Bilirubin [Mass/Vol] 0.3 mg/dL Normal 0.2-1.0 [facility] Comment on above: Performed By: #### P OCGLUC #### [facility] [address] [address] [address] Darrick Cao Calcium [Mass/Vol] 8.5 mg/dL Normal 8.5-10.1 [facility] Comment on above: Performed By: #### P OCGLUC #### [facility] [address] [address] [address] Darrick Cao Chloride [Moles/Vol] 107 mmol/L Normal 98-107 [facility] Comment on above: Performed By: #### P OCGLUC #### [facility] [address] [address] [address] Darrick Cao CO2 [Moles/Vol] 25.9 mmol/L Normal 21.0-32.0 [facility] Comment on above: Performed By: #### P OCGLUC #### [facility] [address] [address] [address] Darrick Cao Creatinine [Mass/Vol] 0.87 mg/dL Normal 0.55-1.02 [facility] Comment on above: Performed By: #### P OCGLUC #### [facility] [address] [address] [address] Darrick Cao EGFR-AF CAMBODIAN >60 Normal >=60 [facility] Comment on above: Performed By: #### P OCGLUC #### [facility] [address] [address] [address] Darrick Cao EGFR-NON AF CAMBODIAN >60 Normal >=60 [facility] Comment on above: Performed By: #### P OCGLUC #### [facility] [address] [address] [address] Darrick Cao Globulin (S) [Mass/Vol] 3.8 g/dL Normal [facility] Comment on above: Performed By: #### P OCGLUC #### [facility] [address] [address] [address] Darrick Cao Glucose [Mass/Vol] 107 mg/dL Critically high 74-106 [facility] Comment on above: Performed By: #### P OCGLUC #### [facility] [address] [address] [address] Darrick Cao Potassium [Moles/Vol] 4.1 mmol/L Normal 3.5-5.1 [facility] Comment on above: Performed By: #### P OCGLUC #### [facility] [address] [address] [address] Darrick Cao Protein [Mass/Vol] 6.7 g/dL Normal 6.4-8.2 [facility] Comment on above: Performed By: #### P OCGLUC #### [facility] [address] [address] [address] Darrick Cao Sodium [Moles/Vol] 141 mmol/L Normal 136-145 [facility] Comment on above: Performed By: #### P OCGLUC #### [facility] [address] [address] [address] Darrick Cao Urea nitrogen [Mass/Vol] 10.0 mg/dL Normal 7.0-18.0 [facility] Comment on above: Performed By: #### P OCGLUC #### [facility] [address] [place] [address] Dr. Darrick Cao Urea nitrogen/Creatinine [Mass ratio] 11.5 mg/mg Normal [facility] Comment on above: Performed By: #### P OCGLUC #### [facility] [address] [place] [address] Dr. Darrick Cao VANCOMYCIN TROUGHon 04-24-20 VANCOMYCIN TROUGH 9.6 ug/ml Normal 5.0-20.0 [facility] Comment on above: Performed By: #### V ANCT #### [facility] [address] [place] [address] Dr. Darrick Cao CBC AUTO DIFFon 04-23-2022 BASO # 0.1 103/ul Normal 0.0-0.1 [facility] Comment on above: Performed By: #### C XWND #### [facility] [address] [place] [address] Dr. Darrick Cao Basophils/100 WBC (Bld) 0.6 % Normal 0.2-2.0 [facility] Comment on above: Performed By: #### C XWND #### [facility] [address] [place] [address] Dr. Darrick Cao EO # 0.1 103/ul Normal 0.0-0.7 [facility] Comment on above: Performed By: #### C XWND #### [facility] [address] [place] [address] Dr. Darrick Cao Eosinophils/100 WBC (Bld) 0.6 % Critically low 0.9-7.0 [facility] Comment on above: Performed By: #### C XWND #### [facility] [address] [place] [address] Dr. Darrick Cao Erythrocyte distribution width (RBC) [Ratio] 15.8 % Critically high 11.0-15.0 [facility] Comment on above: Performed By: #### C XWND #### [facility] [address] [place] [address] Dr. Darrick Cao Hematocrit (Bld) [Volume fraction] 34.0 % Critically low 36.0-48.0 [facility] Comment on above: Performed By: #### C XWND #### [facility] [address] [place] [address] Dr. Darrick Cao Hemoglobin (Bld) [Mass/Vol] 11.0 g/dL Critically low 12.0-16.0 [facility] Comment on above: Performed By: #### C XWND #### [facility] [address] [place] [address] Dr. Darrick Cao IG # 0.03 10e3/ul Normal 0.00-0.03 [facility] Comment on above: Performed By: #### C XWND #### [facility] [address] [place] [address] Dr. Darrick Cao IG % 0.4 % Normal 0.0-0.5 [facility] Comment on above: Performed By: #### C XWND #### [facility] [address] [place] [address] Dr. Darrick Cao LYMPH # 1.6 103/ul Normal 1.2-3.8 [facility] Comment on above: Performed By: #### C XWND #### [facility] [address] [place] [address] Dr. Darrick Cao Lymphocytes/100 WBC (Bld) 19.6 % Critically low 20.5-60.0 [facility] Comment on above: Performed By: #### C XWND #### [facility] [address] [place] [address] Dr. Darrick Cao MANUAL DIFF REQ NO Normal [facility] Comment on above: Performed By: #### C XWND #### [facility] [address] [place] [address] Dr. Darrick Cao MCH (RBC) [Entitic mass] 28.1 pg Normal 26.7-34.0 [facility] Comment on above: Performed By: #### C XWND #### [facility] [address] [place] [address] Dr. Darrick Cao MCHC (RBC) [Mass/Vol] 32.4 g/dL Normal 29.9-35.2 [facility] Comment on above: Performed By: #### C XWND #### [facility] [address] [place] [address] Dr. Darrick Cao MCV (RBC) [Entitic vol] 87.0 fL Normal 81.0-99.0 [facility] Comment on above: Performed By: #### C XWND #### [facility] [address] [place] [address] Dr. Darrick Cao MONO # 0.8 103/ul Normal 0.3-0.8 [facility] Comment on above: Performed By: #### C XWND #### [facility] [address] [place] [address] Dr. Darrick Cao Monocytes/100 WBC (Bld) 10.3 % Normal 1.7-12.0 [facility] Comment on above: Performed By: #### C XWND #### [facility] [address] [place] [address] Dr. Darrick Cao NEUT # 5.4 103/ul Normal 1.4-6.5 [facility] Comment on above: Performed By: #### C XWND #### [facility] [address] [place] [address] Dr. Darrick Cao Neutrophils/100 WBC (Bld) 68.5 % Normal 43.0-75.0 [facility] Comment on above: Performed By: #### C XWND #### [facility] [address] [place] [address] Dr. Darrick Cao Platelet mean volume (Bld) [Entitic vol] 9.9 fL Normal 9.5-13.5 [facility] Comment on above: Performed By: #### C XWND #### [facility] [address] [place] [address] Dr. Darrick Cao PLT 276 103/ul Normal 150-450 [facility] Comment on above: Performed By: #### C XWND #### [facility] [address] [place] [address] Dr. Darrick Cao RBC 3.91 106/ul Critically low 4.20-5.40 [facility] Comment on above: Performed By: #### C XWND #### [facility] [address] [address] [address] Darrick Cao WBC 7.9 103/ul Normal 4.0-11.0 [facility] Comment on above: Performed By: #### C XWND #### [facility] [address] [address] [address] Darrick Cao POINT OF CARE GLUCOSEon 04-01 Glucose [Mass/Vol] 138 mg/dL Critically high 74-106 [facility] Comment on above: Performed By: #### P OCGLUC ####[facility] [id number] [address]Dr. Darrick Cao Glucose [Mass/Vol] 151 mg/dL Critically high 74-106 [facility] Comment on above: Performed By: #### P OCGLUC #### [facility] [address] [address] [address] Darrick Cao Glucose [Mass/Vol] 141 mg/dL Critically high 74-106 [facility] Comment on above: Performed By: #### P OCGLUC ####[facility] [id number] [address]Dr. Darrick Cao PROF 14(COMP METB)on 022 Albumin [Mass/Vol] 3.0 g/dL Critically low 3.4-5.0 [facility] Comment on above: Performed By: #### C XWND #### [facility] [address] [place] [address] Dr. Darrick Cao Albumin/Globulin [Mass ratio] 0.9 {ratio} Normal [facility] Comment on above: Performed By: #### C XWND #### [facility] [address] [place] [address] Dr. Darrick Cao ALP [Catalytic activity/Vol] 128 U/L Critically high 46-116 [facility] Comment on above: Performed By: #### C XWND #### [facility] [address] [place], [place] [id number] Dr. Darrick Cao ALT [Catalytic activity/Vol] 71 U/L Critically high 14-59 [facility] Comment on above: Performed By: #### C XWND #### [facility] [address] [address] [address] Darrick Cao Anion gap [Moles/Vol] 13.1 mmol/L Normal [facility] Comment on above: Performed By: #### C XWND #### [facility] [address] [address] [address] Darrick Cao AST [Catalytic activity/Vol] 50 U/L Critically high 15-37 [facility] Comment on above: Performed By: #### C XWND #### [facility] [address] [place] [address] Dr. Darrick Cao Bilirubin [Mass/Vol] 0.3 mg/dL Normal 0.2-1.0 [facility] Comment on above: Performed By: #### C XWND #### [facility] [address] [place] [address] Dr. Darrick Cao Calcium [Mass/Vol] 8.2 mg/dL Critically low 8.5-10.1 [facility] Comment on above: Performed By: #### C XWND #### [facility] [address] [place] [address] Dr. Darrick Cao Chloride [Moles/Vol] 110 mmol/L Critically high 98-107 [facility] Comment on above: Performed By: #### C XWND #### [facility] [address] [place] [address] Dr. Darrick Cao CO2 [Moles/Vol] 23.4 mmol/L Normal 21.0-32.0 [facility] Comment on above: Performed By: #### C XWND #### [facility] [address] [place] [address] Dr. Darrick Cao Creatinine [Mass/Vol] 0.96 mg/dL Normal 0.55-1.02 [facility] Comment on above: Performed By: #### C XWND #### [facility] [address] [address] [address] Darrick Cao EGFR-AF CAMBODIAN >60 Normal >=60 [facility] Comment on above: Performed By: #### C XWND #### [facility] [address] [address] [address] Darrick Cao EGFR-NON AF CAMBODIAN 59 mL/min/1.73m2 Critically low >=60 [facility] Comment on above: Performed By: #### C XWND #### [facility] [address] [address] [address] Darrick Cao Globulin (S) [Mass/Vol] 3.3 g/dL Normal [facility] Comment on above: Performed By: #### C XWND #### [facility] [address] [address] [address] Darrick Cao Glucose [Mass/Vol] 116 mg/dL Critically high 74-[address] [facility] Comment on above: Performed By: #### C XWND #### [facility] [address] [address] [address] Darrick Cao Potassium [Moles/Vol] 4.5 mmol/L Normal 3.5-5.1 [facility] Comment on above: Performed By: #### C XWND #### [facility] [address] [address] [address] Darrick Cao Protein [Mass/Vol] 6.3 g/dL Critically low 6.4-8.2 [facility] Comment on above: Performed By: #### C XWND #### [facility] [address] [address] [address] Darrick Cao Sodium [Moles/Vol] 142 mmol/L Normal 136-145 [facility] Comment on above: Performed By: #### C XWND #### [facility] [address] [address] [address] Darrick Cao Urea nitrogen [Mass/Vol] 14.0 mg/dL Normal 7.0-18.0 [facility] Comment on above: Performed By: #### C XWND #### [facility] [address] [place] [address] Dr. Darrick Cao Urea nitrogen/Creatinine [Mass ratio] 14.6 mg/mg Normal [facility] Comment on above: Performed By: #### C XWND #### [facility] [address] [place] [address] Dr. Darrick Cao CBC AUTO DIFFon 04-22-2022 BASO # 0.1 103/ul Normal 0.0-0.1 [facility] Comment on above: Performed By: #### C BC #### [facility] [address] [place] [address] Dr. Darrick Cao Basophils/100 WBC (Bld) 0.7 % Normal 0.2-2.0 [facility] Comment on above: Performed By: #### C BC #### [facility] [address] [place] [address] Dr. Darrick Cao EO # 0.1 103/ul Normal 0.0-0.7 [facility] Comment on above: Performed By: #### C BC #### [facility] [address] [place] [address] Dr. Darrick Cao Eosinophils/100 WBC (Bld) 0.5 % Critically low 0.9-7.0 [facility] Comment on above: Performed By: #### C BC #### [facility] [address] [place] [address] Dr. Darrick Cao Erythrocyte distribution width (RBC) [Ratio] 15.8 % Critically high 11.0-15.0 [facility] Comment on above: Performed By: #### C BC #### [facility] [address] [place] [address] Dr. Darrick Cao Hematocrit (Bld) [Volume fraction] 39.8 % Normal 36.0-48.0 [facility] Comment on above: Performed By: #### C BC #### [facility] [address] [place] [address] Dr. Darrick Cao Hemoglobin (Bld) [Mass/Vol] 12.9 g/dL Normal 12.0-16.0 [facility] Comment on above: Performed By: #### C BC #### [facility] [address] [place] [address] Dr. Darrick Cao IG # 0.03 10e3/ul Normal 0.00-0.03 [facility] Comment on above: Performed By: #### C BC #### [facility] [address] [place] [address] Dr. Darrick Cao IG % 0.3 % Normal 0.0-0.5 [facility] Comment on above: Performed By: #### C BC #### [facility] [address] [place] [address] Dr. Darrick Cao LYMPH # 1.6 103/ul Normal 1.2-3.8 [facility] Comment on above: Performed By: #### C BC #### [facility] [address] [place] [address] Dr. Darrick Cao Lymphocytes/100 WBC (Bld) 16.0 % Critically low 20.5-60.0 [facility] Comment on above: Performed By: #### C BC #### [facility] [address] [place] [address] Dr. Darrick Cao MANUAL DIFF REQ NO Normal [facility] Comment on above: Performed By: #### C BC #### [facility] [address] [place] [address] Dr. Darrick Cao MCH (RBC) [Entitic mass] 28.2 pg Normal 26.7-34.0 [facility] Comment on above: Performed By: #### C BC #### [facility] [address] [place] [address] Dr. Darrick Cao MCHC (RBC) [Mass/Vol] 32.4 g/dL Normal 29.9-35.2 [facility] Comment on above: Performed By: #### C BC #### [facility] [address] [place] [address] Dr. Darrick Cao MCV (RBC) [Entitic vol] 86.9 fL Normal 81.0-99.0 [facility] Comment on above: Performed By: #### C BC #### [facility] [address] [address] [address] Darrick Cao MONO # 0.9 103/ul Critically high 0.3-0.8 [facility] Comment on above: Performed By: #### C BC #### [facility] [address] [place] [address] Dr. Darrick Cao Monocytes/100 WBC (Bld) 8.7 % Normal 1.7-12.0 [facility] Comment on above: Performed By: #### C BC #### [facility] [address] [place] [address] Dr. Darrick Cao NEUT # 7.5 103/ul Critically high 1.4-6.5 [facility] Comment on above: Performed By: #### C BC #### [facility] [address] [place] [address] Dr. Darrick Cao Neutrophils/100 WBC (Bld) 73.8 % Normal 43.0-75.0 [facility] Comment on above: Performed By: #### C BC #### [facility] [address] [place] [address] Dr. Darrick Cao Platelet mean volume (Bld) [Entitic vol] 9.3 fL Critically low 9.5-13.5 [facility] Comment on above: Performed By: #### C BC #### [facility] [address] [place] [address] Dr. Darrick Cao PLT 345 103/ul Normal 150-450 [facility] Comment on above: Performed By: #### C BC #### [facility] [address] [place] [address] Dr. Darrick Cao RBC 4.58 106/ul Normal 4.20-5.40 [facility] Comment on above: Performed By: #### C BC #### [facility] [address] [place] [address] Dr. Darrick Cao WBC 10.1 103/ul Normal 4.0-11.0 [facility] Comment on above: Performed By: #### C BC #### [facility] [address] [place] [address] Dr. Darrick Cao CRPon 04-22-2022 CRP 5.2 mg/dL Critically high <=1.0 [facility] Comment on above: Performed By: #### B MP, CRP ####[facility] [address] [place], [place] [address]UsDr. Darrick Cao CULTURE BLOODon 04-22-2022 Microscopic examination of blood, culture Culture Observations: NO GROWTH AT 5 DAYS. Normal [facility] Comment on above: Performed By: #### B LDCX2 #### [facility] [address] [address] [address] Darrick Cao Microscopic examination of blood, culture Culture Observations: NO GROWTH AT 5 DAYS. Normal [facility] Comment on above: Performed By: #### B LDCX1 #### [facility] [address] [address] [address] Darrick Ca[facility]01 SARS-CoV-2 (COVID-19) RNA ALEKSANDR+probe Ql (Unsp spec) Not detected Normal NOT DETECTED [facility] Comment on above: Result Comment: [...] for this test is supported by the [place] of Health and Human Service's declaration that [...] used). Performed By: #### P OCGLUC #### [facility] [address] [address] [address] Darrick Cao LACTATE/LACTIC ACIDon 2021 Lactate [Moles/Vol] 1.3 mmol/L Normal 0.4-1.9 [facility] Comment on above: Performed By: #### P OCGLUC #### [facility] [address] [address] [address] Darrick Cao POINT OF CARE GLUCOSEon 04-01 Glucose [Mass/Vol] 96 mg/dL Normal 74-106 [facility] Comment on above: Performed By: #### P OCGLUC #### [facility] [address] [address] [address] Darrick Cao PROF CHEM 8 (BAS METB)on Anion gap [Moles/Vol] 12.3 mmol/L Normal [facility] Comment on above: Performed By: #### B MP, CRP ####[facility] [address] [address]Dr. Darrick Cao Calcium [Mass/Vol] 9.2 mg/dL Normal 8.5-10.1 [facility] Comment on above: Performed By: #### B MP, CRP ####[facility] [address] [id number]. Darrick Cao Chloride [Moles/Vol] 104 mmol/L Normal 98-107 [facility] Comment on above: Performed By: #### B MP, CRP ####[facility] [address] [id number]. Darrick Cao CO2 [Moles/Vol] 26.4 mmol/L Normal 21.0-32.0 [facility] Comment on above: Performed By: #### B MP, CRP ####[facility] [address] [id number]. Darrick Cao Creatinine [Mass/Vol] 1.19 mg/dL Critically high 0.55-1.02 [facility] Comment on above: Performed By: #### B MP, CRP ####[facility] [address] [id number]. Darrick Cao EGFR-AF CAMBODIAN 56 mL/min/1.73m2 Critically low >=60 [facility] Comment on above: Performed By: #### B MP, CRP ####[facility] [address] [place], [place] [address]Jy. Darrick Cao EGFR-NON AF CAMBODIAN 46 mL/min/1.73m2 Critically low >=60 [facility] Comment on above: Performed By: #### B MP, CRP ####[facility] [address] [id number]. Darrick Cao Glucose [Mass/Vol] 124 mg/dL Critically high 74-106 [facility] Comment on above: Performed By: #### B MP, CRP ####[facility] [address] [id number]. Darrick Cao Potassium [Moles/Vol] 4.7 mmol/L Normal 3.5-5.1 [facility] Comment on above: Performed By: #### B MP, CRP ####[facility] [address] [id number]. Darrick Cao Sodium [Moles/Vol] 138 mmol/L Normal 136-145 [facility] Comment on above: Performed By: #### B MP, CRP ####[facility] [address] [id number]. Darrick Cao Urea nitrogen [Mass/Vol] 21.0 mg/dL Critically high 7.0-18.0 [facility] Comment on above: Performed By: #### B MP, CRP ####[facility] [address] [id number]. Darrick Cao Urea nitrogen/Creatinine [Mass ratio] 17.6 mg/mg Normal [facility] Comment on above: Performed By: #### B MP, CRP ####[facility] [address] [id number]. Darrick Cao SED RATE [facility] 2021 SED RATE 64 mm/hr Critically high <=30 [facility] Comment on above: Performed By: #### P OCGLUC #### [facility] [address] [place], [place] [address] ANKLE LT WO [...] by: SHAWNEE KELLY Date: 2022-03-11 10:18 Normal [facility] [employer] Quick Testingon 2020 Result Negative [facility] Other Operative Reporton Operative Report MR#: [id number] S [facility] Pt. Name: Nicol Knowles Room #: 0C Discharge Date: Birthdate: 1960 OPERATIVE REPORT DATE OF SURGERY: 12/16/2020 SURGEON: David Lr M.D. PREOPERATIVE DIAGNOSIS: Trigger digits, right long finger and thumb. POSTOPERATIVE DIAGNOSIS: Trigger digits, right long finger and thumb. PROCEDURE: A1 leigha release, right long finger and thumb. STORE STOCK ASSOCIATE: Hay Mast M.D. ANESTHESIA: MAC. INDICATION FOR [...] Lr M.D. Date Trans: 12/16/2020 09:13 A/braxton [id number] cc: Waqas Pierce M.D. [address] [place] [id number] [place] The [facility] POC GLUCOSE LABon 12-16-2020 Glucose [Mass/Vol] 103 mg/dL High 70-100 [facility] Comment on above: Performed By: #### 8 5499 #### [facility] [address] Vital Signs Date Time Vital Sign Value Performing Clinician Facility 08-04-2024 10:48-0500 Body height 170.18 cm [facility] 08-04-2024 10:48-0500 Body mass index (BMI) [Ratio] 44.8 kg/m2 [facility] 08-04-2024 10:48-0500 Body weight 129.72 kg [facility] 08-04-2024 10:48-0500 Diastolic blood pressure 84 mm[Hg] [facility] 08-04-2024 10:48-0500 Heart rate 82 /min [facility] 08-04-2024 10:48-0500 Systolic blood pressure 128 mm[Hg] [facility] 06-19-2024 12:54-0400 Body mass index (BMI) [Ratio] 47.9 kg/m2 [facility] 06-19-2024 11:16-0400 Body height 170.18 cm [facility] 06-19-2024 11:16-0400 Body weight 129 kg [facility] 06-16-2024 09:58-0400 Body height 170.18 cm [facility] 06-16-2024 09:58-0400 Body mass index (BMI) [Ratio] 44.9 kg/m2 [facility] 06-16-2024 09:58-0400 Body weight 130.18 kg [facility] 06-16-2024 09:58-0400 Diastolic blood pressure 75 mm[Hg] [facility] 06-16-2024 09:58-0400 Heart rate 83 /min [facility] 06-16-2024 09:58-0400 Systolic blood pressure 114 mm[Hg] [facility] 05-23-2024 10:46-0400 Body mass index (BMI) [Ratio] 47.9 kg/m2 [facility] 05-23-2024 09:49-0400 Body height 170.18 cm [facility] 05-23-2024 09:49-0400 Body weight 127.45 kg [facility] 02-21-2024 10:03-0400 Body height 170.18 cm MD Waqas Pierce Work Phone: [facility] 02-21-2024 10:03-0400 Body mass index (BMI) [Ratio] 42.3 kg/m2 MD Waqas Pierce Work Phone: [facility] 02-21-2024 10:03-0400 Body weight 122.49 kg MD Waqas Pierce Work Phone: [facility] 02-21-2024 10:03-0400 Diastolic blood pressure 88 mm[Hg] MD Waqas Pierce Work Phone: [facility] 02-21-2024 10:03-0400 Heart rate 85 /min MD Waqas Pierce Work Phone: [facility] 02-21-2024 10:03-0400 Respiratory rate 18 /min MD Waqas Pierce Work Phone: [facility] 02-21-2024 10:03-0400 SaO2% (BldA) [Mass fraction] 97 % MD Waqas Pierce Work Phone: [facility] 02-21-2024 10:03-0400 Systolic blood pressure 142 mm[Hg] MD Waqas Pierce Work Phone: [facility] 01-15-2024 10:50-0400 Body height 170.18 cm [facility] 01-15-2024 10:50-0400 Body mass index (BMI) [Ratio] 47.9 kg/m2 [facility] 01-15-2024 10:50-0400 Body weight 138.88 kg [facility] 01-10-2024 09:49-0400 Body mass index (BMI) [Ratio] 47.9 kg/m2 MD Waqas Pierce Work Phone: [facility] 01-10-2024 08:37-0400 Body height 170.18 cm MD Waqas Pierce Work Phone: [facility] 01-10-2024 08:37-0400 Body weight 117.02 kg MD Waqas Pierce Work Phone: [facility] 01-03-2024 10:52-0400 Body height 170.18 cm MD Waqas Pierce Work Phone: [facility] 01-03-2024 10:52-0400 Body mass index (BMI) [Ratio] 39.8 kg/m2 MD Waqas Pierce Work Phone: [facility] 01-03-2024 10:52-0400 Body weight 115.41 kg MD Waqas Pierce Work Phone: [facility] 01-03-2024 10:52-0400 Diastolic blood pressure 89 mm[Hg] MD Waqas Pierce Work Phone: [facility] 01-03-2024 10:52-0400 Heart rate 87 /min MD Waqas Pierce Work Phone: [facility] 01-03-2024 10:52-0400 Respiratory rate 18 /min MD Waqas Pierce Work Phone: [facility] 01-03-2024 10:52-0400 SaO2% (BldA) [Mass fraction] 99 % MD Waqas Pierce Work Phone: [facility] 01-03-2024 10:52-0400 Systolic blood pressure 128 mm[Hg] MD Waqas Pierce Work Phone: [facility] 12-10-2023 11:39-0400 Body mass index (BMI) [Ratio] 47.9 kg/m2 MD Waqas Pierce Work Phone: [facility] 12-10-2023 10:57-0400 Body height 170.18 cm MD Waqas Pierce Work Phone: [facility] 12-10-2023 10:57-0400 Body weight 117.02 kg MD Waqas Pierce Work Phone: [facility] 11-22-2023 10:59-0500 Body height 170.18 cm [facility] 11-22-2023 10:59-0500 Body mass index (BMI) [Ratio] 41.1 kg/m2 [facility] 11-22-2023 10:59-0500 Body weight 119.01 kg [facility] 11-22-2023 10:59-0500 Diastolic blood pressure 84 mm[Hg] [facility] 11-22-2023 10:59-0500 Heart rate 72 /min [facility] 11-22-2023 10:59-0500 Respiratory rate 18 /min [facility] 11-22-2023 10:59-0500 SaO2% (BldA) [Mass fraction] 99 % [facility] 11-22-2023 10:59-0500 Systolic blood pressure 132 mm[Hg] [facility] 11-21-2023 09:48-0500 Body height 170.18 cm [facility] 11-21-2023 09:48-0500 Body mass index (BMI) [Ratio] 40.7 kg/m2 [facility] 11-21-2023 09:48-0500 Body temperature 98.2 [degF] [facility] 11-21-2023 09:48-0500 Body weight 117.99 kg [facility] 11-21-2023 09:48-0500 Diastolic blood pressure 82 mm[Hg] [facility] 11-21-2023 09:48-0500 Heart rate 105 /min [facility] 11-21-2023 09:48-0500 Systolic blood pressure 131 mm[Hg] [facility] 11-19-2023 09:52-0500 Body height 170.18 cm [facility] 11-19-2023 09:52-0500 Body mass index (BMI) [Ratio] 40.8 kg/m2 [facility] 11-19-2023 09:52-0500 Body weight 118.38 kg [facility] 11-01-2023 11:15-0500 Body height 170.18 cm Waqas Pierce Other [facility] 11-01-2023 11:15-0500 Body mass index (BMI) [Ratio] 40.75 kg/m2 Waqas Pierce Other [facility] Other 11-01-2023 11:15-0500 Body weight 118.03 kg Waqas Pierce Other [facility] Other 11-01-2023 11:15-0500 Body weight 118.02 kg [facility] 11-01-2023 11:15-0500 Diastolic blood pressure 87 mm[Hg] Waqas Pierce Other [facility] 11-01-2023 11:15-0500 Systolic blood pressure 127 mm[Hg] Waqas Pierce Other [facility] 10-15-2023 10:00-0500 Body height 170.18 cm Grecia Fitt Other [facility] 10-15-2023 10:00-0500 Body mass index (BMI) [Ratio] 40.08 kg/m2 Grecia Fitt Other [facility] Other 10-15-2023 10:00-0500 Body weight 116.08 kg Grecia Fitt Other [facility] Other 10-15-2023 10:00-0500 Body weight 116.07 kg [facility] 09-18-2023 11:00-0500 Body height 170.18 cm Rolando Jasmin Other [facility] 09-18-2023 11:00-0500 Body mass index (BMI) [Ratio] 40.45 kg/m2 Rolando Jasmin Other [facility] Other 09-18-2023 11:00-0500 Body weight 117.16 kg Rolandotimothy Castellanos Other [facility] 09-18-2023 11:00-0500 Diastolic blood pressure 80 mm[Hg] Rolando Castellanos Other [facility] 09-18-2023 11:00-0500 Respiratory rate 18 /min Rolando Jasmin Other [facility] Other 09-18-2023 11:00-0500 SaO2% (BldA) [Mass fraction] 98 % Rolando Castellanos Other [employer] [facility] [employer] Other 09-18-2023 11:00-0500 Systolic blood pressure 115 mm[Hg] Rolando Castellanos Other [facility] 09-17-2023 10:45-0500 Body height 170.18 cm Grecia Fitt Other [facility] 09-17-2023 10:45-0500 Body mass index (BMI) [Ratio] 40.65 kg/m2 Grecia Fitt Other [facility] Other 09-17-2023 10:45-0500 Body weight 117.75 kg Grecia Fitt Other [facility] 09-03-2023 12:45-0500 Diastolic blood pressure 60 mm[Hg] MD Waqas Pierce Work Phone: [facility] 09-03-2023 12:45-0500 Heart rate 70 /min MD Waqas Pierce Work Phone: [facility] 09-03-2023 12:45-0500 Inhaled oxygen flow rate 1 L/min MD Waqas Pierce Work Phone: [facility] 09-03-2023 12:45-0500 Respiratory rate 16 /min MD Waqas Pierce Work Phone: [facility] 09-03-2023 12:45-0500 SaO2% (BldA) [Mass fraction] 97 % MD Waqas Pierce Work Phone: [facility] 09-03-2023 12:45-0500 Systolic blood pressure 132 mm[Hg] MD Waqas Pierce Work Phone: [facility] 09-03-2023 10:21-0500 Body temperature 98.4 [degF] MD Waqas Pierce Work Phone: [facility] 09-03-2023 07:14-0500 Body height 172.72 cm MD Waqas Pierce Work Phone: [facility] 09-03-2023 07:14-0500 Body mass index (BMI) [Ratio] 39.5 kg/m2 MD Waqas Pierce Work Phone: [facility] 09-03-2023 07:14-0500 Body weight 118 kg MD Waqas Pierce Work Phone: [facility] 08-21-2023 14:30-0500 Body height 170.18 cm Waqas Pierce Other [facility] [employer] Other 08-21-2023 14:30-0500 Body mass index (BMI) [Ratio] 39.46 kg/m2 Waqas Pierce Other [employer] Other 08-21-2023 14:30-0500 Body weight 114.31 kg Waqas Pierce Other [facility] Other 08-21-2023 14:30-0500 Diastolic blood pressure 84 mm[Hg] Waqas Pierce Other [facility] Other 08-21-2023 14:30-0500 Systolic blood pressure 138 mm[Hg] Waqas Pierce Other [facility] Other 08-13-2023 10:45-0500 Body height 170.18 cm Grecia Fitt Other [facility] Other 08-13-2023 10:45-0500 Body mass index (BMI) [Ratio] 41.22 kg/m2 Grecia Fitt Other [facility] Other 08-13-2023 10:45-0500 Body weight 119.39 kg Grecia Fitt Other [facility] Other 07-26-2023 11:30-0400 Body height 170.18 cm Rolandotimothy Castellanos Other [facility] Other 07-26-2023 11:30-0400 Body mass index (BMI) [Ratio] 41.86 kg/m2 Rolandotimothy Castellanos Other [facility] Other 07-26-2023 11:30-0400 Body weight 121.25 kg Rolandotimothy Castellanos Other [facility] Other 07-26-2023 11:30-0400 Diastolic blood pressure 77 mm[Hg] Rolando Castellanos Other [facility] Other 07-26-2023 11:30-0400 Respiratory rate 18 /min Rolando Castellanos Other [facility] Other 07-26-2023 11:30-0400 SaO2% (BldA) [Mass fraction] 98 % Rolando Castellanos Other [facility] Other 07-26-2023 11:30-0400 Systolic blood pressure 121 mm[Hg] Rolando Castellanos Other [facility] Other 07-23-2023 10:45-0400 Body height 170.18 cm Grecia Fitt Other [facility] Other 07-23-2023 10:45-0400 Body mass index (BMI) [Ratio] 41.78 kg/m2 Grecia Fitt Other [facility] Other 07-23-2023 10:45-0400 Body weight 121.02 kg Grecia Fitt Other [facility] Other 06-27-2023 15:15-0400 Body height 170.18 cm [employer] Other [facility] Other 06-27-2023 15:15-0400 Body mass index (BMI) [Ratio] 41.97 kg/m2 [employer] Other [facility] Other 06-27-2023 15:15-0400 Body weight 121.56 kg [employer] Other [facility] Other 06-18-2023 11:30-0400 Body height 170.18 cm Grecia Fitt Other [facility] Other 06-18-2023 11:30-0400 Body mass index (BMI) [Ratio] 42.52 kg/m2 Grecia Fitt Other [facility] Other 06-18-2023 11:30-0400 Body weight 123.15 kg Grecia Carrera Other [facility] Other 06-14-2023 10:00-0400 Body height 170.18 cm Rolando Reyesdiff Other [facility] Other 06-14-2023 10:00-0400 Body mass index (BMI) [Ratio] 42.89 kg/m2 Rolando Reyesdiff Other [facility] Other 06-14-2023 10:00-0400 Body weight 124.24 kg Rolando Reyesdiff Other [facility] Other 06-14-2023 10:00-0400 Diastolic blood pressure 87 mm[Hg] Rolandotimothy Reyesdiff Other [facility] Other 06-14-2023 10:00-0400 Respiratory rate 18 /min Rolando Reyesdiff Other [facility] Other 06-14-2023 10:00-0400 SaO2% (BldA) [Mass fraction] 100 % Rolando Jasmin Other [facility] Other 06-14-2023 10:00-0400 Systolic blood pressure 124 mm[Hg] Rolando Castellanos Other [facility] Other 06-11-2023 12:45-0400 Body height 170.18 cm Waqas Pierce Other [facility] Other 06-11-2023 12:45-0400 Body mass index (BMI) [Ratio] 42.41 kg/m2 Waqas Pierce Other [facility] Other 06-11-2023 12:45-0400 Body weight 122.83 kg Waqsa Pierce Other [facility] Other 06-11-2023 12:45-0400 Diastolic blood pressure 76 mm[Hg] Waqas Pierce Other [facility] Other 06-11-2023 12:45-0400 Respiratory rate 12 /min Waqas Pierce Other [facility] Other 06-11-2023 12:45-0400 Systolic blood pressure 124 mm[Hg] Waqas Pierce Other [facility] Other 05-14-2023 10:00-0400 Body height 170.18 cm Grecia Fitt Other [facility] Other 05-14-2023 10:00-0400 Body mass index (BMI) [Ratio] 43.05 kg/m2 Grecia Fitt Other [facility] Other 05-14-2023 10:00-0400 Body weight 124.69 kg Grecia Fitt Other [facility] Other 04-16-2023 10:00-0400 Body height 170.18 cm Grecia Fitt Other [facility] Other 04-16-2023 10:00-0400 Body mass index (BMI) [Ratio] 43.94 kg/m2 Grecia Fitt Other [facility] Other 04-16-2023 10:00-0400 Body weight 127.28 kg Grecia Fitt Other [facility] Other 01-11-2023 11:00-0400 Body height 170.18 cm Grecia Fitt Other [facility] Other 01-11-2023 11:00-0400 Body mass index (BMI) [Ratio] 47.37 kg/m2 Grecia Fitt Other [facility] Other 01-11-2023 11:00-0400 Body weight 137.21 kg Grecia Fitt Other [facility] Other 11-16-2022 11:45-0500 Body height 170.18 cm Rolando Castellanos Other [facility] Other 11-16-2022 11:45-0500 Body mass index (BMI) [Ratio] 47 kg/m2 Rolando Castellanos Other [facility] Other 11-16-2022 11:45-0500 Body weight 136.13 kg Rolando Castellanos Other [facility] Other 11-16-2022 11:45-0500 Diastolic blood pressure 85 mm[Hg] Rolando Castellanos Other [facility] Other 11-16-2022 11:45-0500 Respiratory rate 18 /min Rolando Castellanos Other [facility] Other 11-16-2022 11:45-0500 SaO2% (BldA) [Mass fraction] 97 % Rolando Castellanos Other [facility] Other 11-16-2022 11:45-0500 Systolic blood pressure 114 mm[Hg] Rolando Castellanos Other [facility] Other 11-14-2022 09:15-0500 Body height 170.18 cm Grecia Carrera Other [facility] Other 11-08-2022 14:57-0500 Blood Pressure Location [facility] [place] 11-08-2022 14:57-0500 Diastolic blood pressure 74 mm[Hg] Efrain NILL General Surgery [place] 11-08-2022 14:57-0500 Heart rate 80 /min [employer] [facility] Surgery [place] 11-08-2022 14:57-0500 Respiratory rate 16 /min [employer] [facility] Surgery [place] 11-08-2022 14:57-0500 Systolic blood pressure 118 mm[Hg] Efrain NILL [employer] [facility] Surgery [place] 10-23-2022 10:30-0500 Body height 170.18 cm Waqas Pierce Other [facility] Other 10-23-2022 10:30-0500 Body mass index (BMI) [Ratio] 46.04 kg/m2 Waqas Pierce Other [facility] Other 10-23-2022 10:30-0500 Body weight 133.36 kg Waqas Pierce Other [facility] Other 10-23-2022 10:30-0500 Diastolic blood pressure 88 mm[Hg] Waqas Pierce Other [facility] Other 10-23-2022 10:30-0500 Systolic blood pressure 148 mm[Hg] Waqas Pierce Other [facility] Other 10-13-2022 10:15-0500 Body height 170.18 cm Rachel Missler Other [facility] Other 10-13-2022 10:15-0500 Body mass index (BMI) [Ratio] 45.89 kg/m2 Rachel Missler Other [facility] Other 10-13-2022 10:15-0500 Body weight 132.9 kg Rachel Missler Other [facility] Other 10-13-2022 10:15-0500 Diastolic blood pressure 89 mm[Hg] Rachel Missler Other [facility] Other 10-13-2022 10:15-0500 Respiratory rate 18 /min Rachel Missler Other [facility] Other 10-13-2022 10:15-0500 SaO2% (BldA) [Mass fraction] 96 % Rachel Missler Other [facility] Other 10-13-2022 10:15-0500 Systolic blood pressure 138 mm[Hg] Rachel Missler Other [facility] Other 09-06-2022 16:00-0500 Body height 170.18 cm David Bartolo II Other [facility] Other 09-06-2022 16:00-0500 Body mass index (BMI) [Ratio] 45.57 kg/m2 David Mobile II Other [facility] Other 09-06-2022 16:00-0500 Body weight 132 kg David Mobile II Other [facility] Other 07-25-2021 18:45-0400 Body height 170.18 cm Mallory Yuen Other [facility] Other 07-25-2021 18:45-0400 Body mass index (BMI) [Ratio] 42.91 kg/m2 Mallory Yuen Other [facility] Other 07-25-2021 18:45-0400 Body temperature 98.6 [degF] Mallory Yuen Other [facility] Other 07-25-2021 18:45-0400 Body weight 124.29 kg Mallory Yuen Other [facility] Other 07-25-2021 18:45-0400 Respiratory rate 18 /min Mallory Yuen Other [facility] Other 07-25-2021 18:45-0400 SaO2% (BldA) [Mass fraction] 96 % Mallory Yuen Other [facility] Other Encounters Encounter Date Encounter Type Care Provider Facility Start: 08-27-2024 End: 08-27-2024 ambulatory David Mcfarland II Facility:[facility] Start: 08-18-2024 End: 08-18-2024 ambulatory Angel Hill MD Facility:[facility] Start: 08-04-2024 End: 08-04-2024 ambulatory [facility] Work Phone: Start: 08-04-2024 End: 08-04-2024 Patient encounter procedure [facility] Work Phone: Start: 07-25-2024 End: 07-25-2024 ambulatory [facility] Start: 07-15-2024 Non-patient / Non-visit [facility] Work Phone: Start: 06-19-2024 End: 06-19-2024 ambulatory [facility] Work Phone: Start: 06-19-2024 End: 06-19-2024 Patient encounter procedure [facility] Work Phone: Start: 06-17-2024 Non-patient / Non-visit [facility] Work Phone: Start: 06-16-2024 Patient encounter procedure [facility] Start: 06-16-2024 End: 06-16-2024 ambulatory [facility] Work Phone: Start: 06-16-2024 End: 06-16-2024 Patient encounter procedure [facility] Work Phone: Start: 05-23-2024 End: 05-23-2024 ambulatory [facility] Work Phone: Start: 05-23-2024 End: 05-23-2024 Patient encounter procedure [facility] Work Phone: Start: 02-21-2024 End: 02-21-2024 ambulatory MD Waqas Pierce Work Phone: [facility] Work Phone: Start: 02-21-2024 End: 02-21-2024 Patient encounter procedure MD Waqas Pierce Work Phone: [facility] Work Phone: Start: 01-15-2024 End: 01-15-2024 ambulatory NON STAFF [facility] Work Phone: Start: 01-15-2024 End: 01-15-2024 Patient encounter procedure [facility] Work Phone: Start: 01-11-2024 Non-patient / Non-visit [facility] Work Phone: Start: 01-10-2024 End: 01-10-2024 ambulatory MD Waqas Pierce Work Phone: [facility] Work Phone: Start: 01-10-2024 End: 01-10-2024 Patient encounter procedure MD Waqas Pierce Work Phone: [facility] Work Phone: Start: 01-03-2024 End: 01-03-2024 ambulatory MD Waqas Pierce Work Phone: [facility] Work Phone: Start: 01-03-2024 End: 01-03-2024 Patient encounter procedure MD Waqas Pierce Work Phone: [facility] Work Phone: Start: 12-26-2023 End: 12-26-2023 ambulatory MD Waqas Pierce Work Phone: [facility] Work Phone: Start: 12-26-2023 End: 12-26-2023 Patient encounter procedure MD Waqas Pierce Work Phone: [facility] Work Phone: Start: 12-10-2023 End: 12-10-2023 Patient encounter procedure MD Waqas Pierce Work Phone: [facility] Work Phone: Start: 12-04-2023 Registered Recurring MD Waqas Pierce Work Phone: [facility] Start: 11-28-2023 End: 11-28-2023 Patient encounter procedure MD Waqas Pierce Work Phone: [facility] Work Phone: Start: 11-28-2023 End: 11-28-2023 Patient encounter procedure MD Waqas Pierce Work Phone: [facility] Start: 11-28-2023 End: 11-28-2023 ambulatory David Duy Mcfarland II Facility:[facility] Start: 11-22-2023 End: 11-22-2023 ambulatory NON STAFF [facility] Work Phone: Start: 11-22-2023 End: 11-22-2023 Patient encounter procedure [facility] Work Phone: Start: 11-21-2023 End: 11-21-2023 ambulatory NON STAFF [facility] Work Phone: Start: 11-21-2023 End: 11-21-2023 Patient encounter procedure [facility] Work Phone: Start: 11-20-2023 Registered Recurring MD Waqas Pierce Work Phone: [facility] Start: 11-19-2023 End: 11-19-2023 ambulatory NON STAFF [facility] Work Phone: Start: 11-19-2023 End: 11-19-2023 Patient encounter procedure [facility] Work Phone: Start: 11-01-2023 End: 11-01-2023 ambulatory Waqas Pierce Other [facility] Other Start: 11-01-2023 Office outpatient vi sit 15 minutes Waqas Pierce [facility] Start: 11-01-2023 End: 11-01-2023 Patient encounter procedure [facility]- Start: 10-31-2023 End: 10-31-2023 ambulatory Waqas Pierce Other [facility] Other Start: 10-31-2023 Telephone encounter Waqas Pierce [facility] Start: 10-23-2023 Registered Recurring MD Waqas Pierce Work Phone: [facility] Start: 10-17-2023 Postop follow up vis it related to original px David Mobile II [facility] Start: 10-17-2023 End: 10-17-2023 Patient encounter procedure [facility] Start: 10-17-2023 End: 10-17-2023 ambulatory NON STAFF [facility] Work Phone: Start: 10-15-2023 ([facility] [address] FU) FCC F/ U Registerd Finisher Polisher Grecia Carrera [facility] Start: 10-15-2023 Registered Recurring [facility] Work Phone: Start: 10-15-2023 End: 10-15-2023 ambulatory David Duy Rdzle II [facility] Other Start: 10-15-2023 End: 10-15-2023 Patient encounter procedure [facility] Work Phone: Start: 10-02-2023 End: 10-02-2023 ambulatory Rolando Castellanos Other [facility] Other Start: 10-02-2023 Telephone encounter Rolando dhillon [facility] Start: 09-19-2023 End: 09-19-2023 ambulatory David Mcfarland II Other [facility] Other Start: 09-19-2023 Postop follow up vis it related to original px Carrie Perea [facility] Start: 09-19-2023 Telephone encounter David Rdzle II [facility] Start: 09-19-2023 End: 09-19-2023 Patient encounter procedure [facility] Work Phone: Start: 09-18-2023 End: 09-18-2023 ambulatory Rolando Castellanos Other [facility] Other Start: 09-18-2023 Follow-up encounter Rolando dhill[facility] Start: 09-18-2023 End: 09-18-2023 Patient encounter procedure [facility] Work Phone: Start: 09-17-2023 ([facility] FU) [facility]/ U Registerd Finisher Polisher Grecia Carrera [facility] Start: 09-17-2023 End: 09-17-2023 ambulatory Grecia Carrera Other [facility] Other Start: 09-17-2023 End: 09-17-2023 Patient encounter procedure [facility] Work Phone: Start: 09-10-2023 End: 09-10-2023 ambulatory David Mcfarland II Other [facility] Other Start: 09-10-2023 Telephone encounter David Mcfarland II [facility] Start: 09-03-2023 End: 09-03-2023 Admission to same day surgery center MD Waqas Pierce Work Phone: [facility] Start: 09-03-2023 End: 09-03-2023 ambulatory MD Waqas Pierce Work Phone: [facility] Work Phone: Start: 08-31-2023 (Prolonged) Prolonge d Services David Mcfarland II [facility] Start: 08-31-2023 Registered Recurring MD Waqas Pierce Work Phone: [facility]-Physical Therapy [facility] Start: 08-31-2023 End: 08-31-2023 ambulatory David Mcfarland II [facility] Other Start: 08-30-2023 End: 08-30-2023 ambulatory David Mcfarland II Other [facility] Other Start: 08-30-2023 Office outpatient vi sit 40 minutes David Mcfarland II [facility] Start: 08-28-2023 End: 08-28-2023 ambulatory MD Waqas Pierce Work Phone: [facility] Work Phone: Start: 08-28-2023 End: 08-28-2023 Patient encounter procedure MD Waqas Pierce Work Phone: [facility] Work Phone: Start: 08-28-2023 Registered Recurring [facility] Start: 08-21-2023 End: 08-21-2023 ambulatory Waqas Pierce Other [facility] Other Start: 08-21-2023 Encounter for other preprocedural examination Waqas Pierce [facility] Start: 08-21-2023 Office outpatient vi sit 25 minutes Waqas Pierce [facility] Start: 08-15-2023 End: 08-15-2023 ambulatory MD Waqas Pierce Work Phone: [facility] Work Phone: Start: 08-15-2023 End: 08-15-2023 Patient encounter procedure MD Waqas Pierce Work Phone: [facility] Start: 08-13-2023 Registered Recurring MD Waqas Pierce Work Phone: [facility] Work Phone: Start: 08-13-2023 ([facility] FU) [facility] F/ U Registerd Finisher Polisher Grecia Carrera [facility] Start: 08-13-2023 End: 08-13-2023 ambulatory Grecia Carrera Other [facility] Other Start: 08-06-2023 End: 08-06-2023 ambulatory David Mcfarland II Other [facility] Other Start: 08-06-2023 Telephone encounter David Mcfarland II [facility] Start: 08-01-2023 End: 08-01-2023 ambulatory Waqas Pierce Other [facility] Other Start: 08-01-2023 Telephone encounter Waqas Pierce [facility] Start: 07-31-2023 (Televisit) Televisit Waqas Pierce Christina [facility] Start: 07-31-2023 End: 07-31-2023 ambulatory Waqas Pierce Other [facility] Other Start: 07-26-2023 End: 07-26-2023 ambulatory Rolando Reyesdiff Other [facility] Other Start: 07-26-2023 Follow-up encounter Rolando Castellanos Christina [facility] Start: 07-26-2023 Telephone encounter David Mcfarland II [facility] Start: 07-23-2023 ([facility] FU) [facility] F/ U Registerd Finisher Polisher Grecia Carrera [facility] Start: 07-23-2023 End: 07-23-2023 ambulatory Grecia Carrera Other [facility] Other Start: 07-09-2023 End: 07-09-2023 ambulatory Rolando Castellanos Other [facility] Other Start: 07-09-2023 Telephone encounter Rolando Vasquez [facility] Start: 06-27-2023 End: 06-27-2023 ambulatory David Mcfarland II Other [facility] Other Start: 06-27-2023 Office outpatient vi sit 25 minutes David Mcfarland II [facility] Start: 06-19-2023 End: 06-19-2023 ambulatory Waqas Pierce Other [facility] Other Start: 06-19-2023 Telephone encounter Waqas Kari [facility] Start: 06-18-2023 ([facility] FU) [facility] F/ U Registerd Finisher Polisher Grecia Carlt [facility] Start: 06-18-2023 End: 06-18-2023 ambulatory Grecia Henryt Other [facility] Other Start: 06-14-2023 End: 06-14-2023 ambulatory Rolando Castellanos Other [facility] Other Start: 06-14-2023 Follow-up encounter Rolando Reyesdienrike Vasquez [facility] Start: 06-11-2023 End: 06-11-2023 ambulatory Waqas Pierce Other [facility] Other Start: 06-11-2023 Encounter for genera l adult medical examination without abnormal findings Waqas Pierce [facility] Start: 06-11-2023 Periodic preventive med est patient 40-64yrs Waqas Pierce [facility] Start: 06-01-2023 End: 06-01-2023 ambulatory Waqas Pierce Other [facility] Other Start: 06-01-2023 Telephone encounter Waqas Pierce [facility] Start: 05-28-2023 End: 05-28-2023 ambulatory Waqas Pierce Other [facility] Other Start: 05-28-2023 Telephone encounter Waqas Pierce [facility] Start: 05-14-2023 ([facility] FU) [facility] F/ U Registerd Finisher Polisher Grecia Carlt [facility] Start: 05-14-2023 End: 05-14-2023 ambulatory Grecia Fitt Other [facility] Other Start: 04-16-2023 ([facility] FU) [facility] F/ U Registerd Finisher Polisher Rgecia Carlt [facility] Start: 04-16-2023 End: 04-16-2023 ambulatory Grecia Fitt Other [facility] Other Start: 03-21-2023 End: 03-21-2023 ambulatory Waqas Pierce Other [facility] Other Start: 03-21-2023 Telephone encounter Waqas Pierce [facility] Start: 02-22-2023 ambulatory MER MAYBERRY . Facil ity:H1 Start: 02-13-2023 End: 02-14-2023 ambulatory AMY Iverson [facility] Facility:H1 Start: 01-31-2023 End: 01-31-2023 ambulatory Waqas Pierce Other [facility] Other Start: 01-31-2023 Telephone encounter Waqas Pierce [facility] Start: 01-30-2023 End: 01-31-2023 ambulatory AMY Iverson [facility] Facility:[facility]1 Start: 01-19-2023 End: 01-20-[address] ROLANDO CASTELLANOS Facility:[facility] Start: 01-11-2023 ([facility] WMNI) WMN Init ial Provider Grecia Carrera [facility] Start: 01-11-2023 End: 01-11-2023 ambulatory Grecia Carrera Other [facility] Other Start: 01-09-2023 End: 01-10-2023 ambulatory AMY KASPER Facility:[facility] Start: 12-25-2022 End: 12-25-2022 ambulatory Junior Mcgowan Other [facility] Other Start: 12-25-2022 Telephone encounter Junior DARNELL [facility] Start: 12-22-2022 End: 12-23-2022 ambulatory AMY Kishor [facility] Facility:H1 Start: 12-18-2022 End: 12-18-2022 ambulatory Junior Mcgowan Other [facility] Other Start: 12-18-2022 Telephone encounter Junior DARNELL [facility] Start: 12-15-2022 End: 12-15-2022 ambulatory Waqas Pierce Other [facility] Other Start: 12-15-2022 Telephone encounter Waqas Pierce [facility] Start: 12-12-2022 Telephone encounter Rolando Vasquez [facility] Start: 12-12-2022 End: 12-13-[address] WAQAS PIERCE [facility] Other Start: 12-06-2022 Telephone encounter Waqas Pierce [facility] Start: 12-06-2022 End: 12-07-2022 ambulatory Efrain CORTES [facility] Other Start: 12-01-2022 End: 12-02-[address] WAQAS PIERCE Facility: Start: 11-20-2022 End: 11-20-2022 ambulatory Rolando Castellanos Other [facility] Other Start: 11-20-2022 Telephone encounter Rolando Vasquez [facility] Start: 11-17-2022 Telephone encounter Waqas Pierce [facility] Start: 11-17-2022 End: 11-18-[address] WAAQS PIERCE [facility] Other Start: 11-16-2022 End: 11-16-2022 ambulatory Rolando Castellanos Other [facility] Other Start: 11-16-2022 Follow-up encounter Rolando Vasquez [facility] Start: 11-14-2022 End: 11-14-2022 ambulatory Grecia Carlt Other [facility] Other Start: 11-14-2022 IBT FOR OBESITY GROU P 2-10 30M Grecia Fitt [facility] Start: 11-13-2022 End: 11-13-2022 ambulatory Waqas Pierce Other [facility] Other Start: 11-13-2022 Telephone encounter Waqas Pierce [facility] Start: 11-08-2022 End: 11-09-2022 ambulatory Efrain Vaz SOPHIA Facility:[facility] Start: 11-08-2022 End: 11-08-2022 Patient encounter procedure Efrain Vaz SOPHIA General Surgery Nill/Said [place] Start: 11-06-2022 End: 11-07-[address] WAQAS PIERCE Facility: Start: 11-05-2022 Encounter for gynecological examination (general) (routine) without abnormal findings DR FRIEDA LOCKE . [facility] Start: 11-03-2022 End: 11-04-[address] WAQAS PIERCE Facility:[facility]1 Start: 10-30-2022 End: 10-31-[address] WAQAS PIERCE Facility: Start: 10-25-2022 End: 10-25-2022 ambulatory Waqas Pierce Other [facility] Other Start: 10-25-2022 Telephone encounter Waqas Pierce [facility] Start: 10-24-2022 End: 10-24-2022 ambulatory Rolando Castellanos Other [facility] Other Start: 10-24-2022 Telephone encounter Rolando Castellanos [facility] Start: 10-23-2022 Office outpatient vi sit 15 minutes Waqas Pierce [facility] Start: 10-23-2022 Telephone encounter Waqas Pierce [facility] Start: 10-23-2022 End: 10-24-2022 ambulatory NON STAFF [facility] Work Phone: Start: 10-23-2022 End: 10-23-2022 Departed Referred [facility] Work Phone: Start: 10-20-2022 End: 10-20-2022 ambulatory Waqas Pierce Other [facility] Other Start: 10-20-2022 Telephone encounter Waqas Pierce [facility] Start: 10-17-2022 End: 10-18-[address] WAQAS PIERCE Facility:[facility]1 Start: 10-13-2022 End: 10-13-2022 ambulatory Rachel Vela Other [facility] Other Start: 10-13-2022 Nutrition therapy Rachel Vela [facility] Start: 10-13-2022 Telephone encounter Rachel Vela [facility] Start: 10-13-2022 Registered Recurring [facility] Work Phone: Start: 10-10-2022 End: 10-11-[address] WAQAS PIERCE Facility:[facility] Start: 10-06-2022 End: 10-06-2022 ambulatory Waqas Pierce Other [facility] Other Start: 10-06-2022 Telephone encounter Waqas Pierce [facility] Start: 10-04-2022 (Procedure) Short Junior Mcgowan [facility] Start: 10-04-2022 End: 10-04-2022 ambulatory Junior Mcgowan Other [facility] Other Start: 10-03-2022 End: 10-04-[address] WAQAS PIERCE [facility] Other Start: 10-03-2022 Telephone encounter Junior [facility] Start: 09-27-2022 End: 09-27-2022 ambulatory Junior Mcgowan Other [facility] Other Start: 09-27-2022 Telephone encounter Junior King [facility] Start: 09-19-2022 End: 09-20-[address] WAQAS PIERCE Facility:[facility] Start: 09-11-2022 End: 09-12-[address] WAQAS PIERCE Facility:[facility] Start: 09-06-2022 End: 09-06-2022 Patient encounter procedure [facility] Start: 09-06-2022 End: 09-06-2022 ambulatory NON STAFF [facility] Work Phone: Start: 09-06-2022 FQHC visit new patient David davalos AMAURI [facility] Start: 08-28-2022 End: 08-29-[address] WAQAS PIERCE Facility:[facility]1 Start: 08-18-2022 Adult health examination Grecia Fitt Other [facility] Other Start: 08-18-2022 Gynecological examination normal Grecia Fitt Other [facility] Other Start: 08-18-2022 End: 08-19-[address] [...] Encounter for other preprocedural examination AMY KASPER [facility] Start: 04-24-[address] WAQAS [...] Pre-procedure evalua tion check Grecia Carrera Other [facility] Other Start: 07-25-2021 Office outpatient vi sit 15 minutes Mallory Yuen [facility] Start: 06-23-2021 Office outpatient vi sit 25 minutes Junior Mcgowan [facility] Start: 06-23-2021 Telephone encounter [facility] Start: 12-16-2020 End: 12-17-2020 ambulatory REFERRED SELF Facility:[facility] Procedures Date Procedure Procedure [...] WAQAS PIERCE Start: 04-24-2022 Insertion of Tissue Stunt Man into Left Foot Subcutaneous Tissue and Fascia, [...] Activity Detail Author Start: 09-03-2023 Hospital admission [facility] Start: 09-03-2023 End: 09-03-2023 [facility] Start: 09-03-2023 Physical therapy procedure [facility] Start: 08-28-[address] [facility] Start: 08-28-2023 Bacteria identified in Urine by Culture [facility] aPTT in Platelet poo r plasma by Coagulation assay [facility] Bacteria identified in Urine by Culture [facility] CT Chest WO and W contrast IV [facility] XR Chest 2 Views [facility] XR Chest 2 Views [facility] Immunizations Immunization Date Immunization Notes Care Provider Fa cility 09-28-2023 COVID-19 (PFIZER) [id number] 12Y and older MD Waqas Pierce Work Phone: [facility] 09-28-2023 influenza, injectabl e, quadrivalent, preservative free MD Waqas Pierce Work Phone: [facility] 08-31-2022 COVID-19 (Pfizer) Bivalent Booster, Age 12Y+ [facility] 08-31-2022 influenza virus vaccine, unspecified formulation Efrain CORTES [facility] 08-31-2022 influenza, injectabl e, quadrivalent, preservative free MD Waqas Pierce Work Phone: [facility] 08-31-2022 SARS-CoV-2 (COVID-19 ) [id number] Efrain CORTES [facility] 02-24-2022 COVID-19 (Pfizer); Translations: [COVID-19 (Pfizer)] MD Waqas Pierce Work Phone: [facility] 02-24-2022 COVID-19 Comirnaty (Pfizer) Tri-Sucrose 12+ MD Waqas Pierce Work Phone: [facility] 02-24-2022 SARS-CoV-2 mRNA (damwjiwvzqv-utga-[id number] se) vaccine Efrain NILSharan [facility] 11-20-2021 influenza, injectabl e, quadrivalent, preservative free MD Waqas Pierce Work Phone: [facility] 08-19-2021 COVID-19 (Pfizer) [facility] 08-19-2021 SARS-CoV-2 (COVID-19 ) mRNA [id number] vax Efrain SOPHIA [facility] 01-19-2021 COVID-19 (Pfizer) [facility] [facility] 01-19-2021 SARS-CoV-2 (COVID-19 ) mRNA BNT-162b2 vax Efrain NILL [facility] 12-31-2020 COVID-19 (Pfizer) [facility] 12-31-2020 SARS-CoV-2 (COVID-19 ) mRNA BNT-162b2 vax Efrain RABAGOL [facility] 06-25-2020 influenza virus vaccine, split virus (incl. purified surface antigen) Grecia Carrera Other [facility] Other 06-25-2020 influenza virus vaccine, unspecified formulation [facility] 06-25-2020 influenza, injectabl e, quadrivalent, preservative free MD Waqas Pierce Work Phone: [facility] 06-25-2020 pneumococcal polysaccharide vaccine, 23 valent Grecia Carrera Other [facility] 07-30-2019 influenza, injectabl e, quadrivalent, contains preservative MD Waqas Pierce Work Phone: [facility] 07-12-2018 influenza, injectabl e, quadrivalent, preservative free MD Waqas Pierce Work Phone: [facility] 11-15-2016 influenza, injectabl e, quadrivalent, preservative free MD Waqas Pierce Work Phone: [facility] Payers Date Payer Category Payer Private Health Insurance [id number] 2023 Private Health Insurance 2022 Self-pay [id number] 1962 Unknown [id number] 2.16.840.1.249963.3.579.2.647 1962 Unknown [id number] 2.16.840.1.083135.3.579.2.727 1962 Unknown [id number] 2.16.840.1.487434.3.579.2.727 1962 Unknown [id number] 2.16.840.1.958895.3.579.2.593 1962 Unknown [id number] 2.16.840.1.442192.3.579.2.593 1962 Unknown [id number] 2.16.840.1.954694.3.579.2.593 1962 Unknown [id number] 2.16.840.1.998862.3.579.2.593 1962 Unknown [id number] 2.16.840.1.345576.3.579.2.593 1962 Unknown [id number] 2.16.840.1.034528.3.579.2.593 1962 Unknown [id number] 2.16.840.1.886978.3.579.2.593 1962 Unknown [id number] 2.16.840.1.088890.3.579.2.593 1962 Unknown [id number] 2.16.840.1.816042.3.579.2.593 1962 Unknown [id number] 2.16.840.1.970692.3.579.2.593 1962 Unknown [id number] 2.16.840.1.088677.3.579.2.593 1962 Unknown [id number] 2.16.840.1.569919.3.579.2.593 1962 Unknown [id number] 2.16.840.1.098051.3.579.2.593 1962 Unknown [id number] 2.16.840.1.080360.3.579.2.593 1962 Unknown [id number] 2.16.840.1.701704.3.579.2.593 1962 Unknown [id number] 2.16.840.1.997539.3.579.2.593 1962 Unknown [id number] 2.16.840.1.299149.3.579.2.593 1962 Unknown [id number] 2.16.840.1.369325.3.579.2.593 1962 Unknown [id number] 2.16.840.1.627931.3.579.2.593 1962 Unknown [id number] 2.16.840.1.823431.3.579.2.593 1962 Unknown [id number] 2.16.840.1.704485.3.579.2.593 1962 Unknown [id number] 2.16.840.1.688692.3.579.2.593 1962 Unknown [id number] 2.16.840.1.792502.3.579.2.593 1962 Unknown [id number] 2.16.840.1.703671.3.579.2.593 1962 Unknown [id number] 2.16.840.1.231173.3.579.2.593 1962 Unknown [id number] 2.16.840.1.630576.3.579.2.593 1962 Unknown [id number] 2.16.840.1.733457.3.579.2.593 1962 Unknown [id number] 2.16.840.1.828492.3.579.2.593 1962 Unknown [id number] 2.16.840.1.110701.3.579.2.593 1962 Unknown [id number] 2.16.840.1.003390.3.579.2.593 1962 Unknown [id number] 2.16.840.1.791245.3.579.2.593 1962 Unknown [id number] 2.16.840.1.903007.3.579.2.593 1962 Unknown [id number] 2.16.840.1.174297.3.579.2.593 1962 Unknown [id number] 2.16.840.1.009614.3.579.2.593 1962 Unknown [id number] 2.16.840.1.951046.3.579.2.593 1962 Unknown [id number] 2.16.840.1.657416.3.579.2.593 1962 Unknown [id number] 2.16.840.1.062951.3.579.2.593 1962 Unknown [id number] 2.16.840.1.691858.3.579.2.593 1962 Unknown [id number] 2.16.840.1.100860.3.579.2.593 1962 Unknown [id number] 2.16.840.1.357723.3.579.2.593 1962 Unknown [id number] 2.16.840.1.093314.3.579.2.593 1962 Unknown [id number] 2.16.840.1.974585.3.579.2.593 1962 Unknown [id number] 2.16.840.1.343548.3.579.2.593 1962 Unknown [id number] 2.16.840.1.566721.3.579.2.196 1959 Unknown [id number] 2.16. 840.1.505452.19 1959 Unknown [id number] Medicare Medicare [id number] Unknown [id number] 2.16.840.1.705990.3.579.2.531 Worker's Compensation [id number] Worker's Compensation [facility] [id number] Social History Date Type Detail Facility Unknown if ever smoked [facility] Other Sex Assigned At [facility] Start: 1960 Sex Assigned At Female F [facility] Start: 11-08-2022 End: 01-03-2024 Tobacco smoking status Ex-smoker (finding) [facility] Comment on above: smoked one year, souleymane t 30 years ago Tobacco smoking status Never [facility] Comment on above: smoked one year, souleymane t 30 years ago Medical Equipment Procedure Code Equipment Code Equipment Origin al Text Equipment Identifier Dates Arthroplasty, hip, total, anterior approach Acetabular shell [id number] FDA Start: 09-03-2023 Arthroplasty, hip, total, anterior approach Ceramic femoral head prosthesis ()[id number] FDA Start: 09-03-2023 Arthroplasty, hip, total, anterior approach Coated hip femur prosthesis, modular ()[id number] FDA Start: 09-03-2023 Arthroplasty, hip, total, anterior approach Non-constrained polyethylene acetabular liner ()[id number] FDA Start: 09-03-2023 Start: 02-13-2023 Goals Date [...] Patient is following with hematology here at [facility] for anemia. No edema, orthopnea, or [...] 1 TABLET BY MOUTH TWICE DAILY HYDROcodone-acetaminophen (Bronte) 5-325 mg tablet hydrocodone 5 mg-acetaminophen 325 [...] needed Anita Tafoya (more content not included)... [facility] 01-03-2024 Evaluation note Authored January 03, 2024 [...] given. 1. Prediabetes most recent A1c of 5.6-jzqkl-jaze treatment with long-term healthy lifestyle change, decreased [...] join the gym and start with a new product trainer. She should consider pool therapy/ water therapy. She needs to try to keep her trigger foods out of the house. She is to try to find healthier desserts and she tends to like to have 1 after each meal. Lately her cravings for sweets have been decreased. She continues to work with our real estate investor. She understands the need for preplanning, following the plate method, having healthy foods around, keeping unhealthy foods out of her house and eating healthy Whole Foods. She does not like to cook or prep. She understands that shopping, chopping and preplanning so that she can eat healthy foods is essential to her recovery. She will continue to work with our real estate investor. We could consider Wellbutrin in the future [...] TSH with her PCP. Author Estephania Mao [facility] Authored February 21, 2024 10:30 am [...] given. 1. Prediabetes most recent A1c of 5.0-yimls-hrfn treatment with long-term healthy lifestyle change, decreased [...] join the gym and start with a new product trainer. She should consider pool therapy/ water therapy. She needs to try to keep her trigger foods out of the house. She is to try to find healthier desserts and she tends to like to have 1 after each meal. Lately her cravings for sweets have been decreased. She continues to work with our real estate investor. She understands the need for preplanning, following the plate method, having healthy foods around, keeping unhealthy foods out of her house and eating healthy Whole Foods. She does not like to cook or prep. She understands that shopping, chopping and preplanning so that she can eat healthy foods is essential to her recovery. She will continue to work with our real estate investor. We could consider Wellbutrin in the future [...] lab work and TSH with her PCP. [facility] Work Phone: 1(860) 565-738504-04-2024 Evaluation note* Author Rolando Castellanos [facility] Authored January 03, 2024 11:3 9am [...] given. 1. Prediabetes most recent A1c of 5.4-htkaw-dpij treatment with long-term healthy lifestyle change, decreased [...] join the gym and start with a new product trainer. She should consider pool therapy/ water therapy. She needs to try to keep her trigger foods out of the house. She is to try to find healthier desserts and she tends to like to have 1 after each meal. Lately her cravings for sweets have been decreased. She continues to work with our real estate investor. She understands the need for preplanning, following the plate method, having healthy foods around, keeping unhealthy foods out of her house and eating healthy Whole Foods. She does not like to cook or prep. She understands that shopping, chopping and preplanning so that she can eat healthy foods is essential to her recovery. She will continue to work with our real estate investor. We could consider Wellbutrin in the future [...] TSH with her PCP. Author Rolando Castellanos [facility] Authored February 21, 2024 10:49 am [...] given. 1. Prediabetes most recent A1c of 5.6-rfpet-nkpp treatment with long-term healthy lifestyle change, decreased [...] join the gym and start with a new product trainer. She should consider pool therapy/ water [...] to continue to work closely with our laundry operator wash room. She understands the need for preplanning, following the plate method, having healthy foods around, keeping unhealthy foods out of her house and eating healthy Whole Foods. She does not like to cook or prep. She understands that shopping, chopping and preplanning so that she can eat healthy foods is essential to her recovery. She will continue to work with our real estate investor. We could consider Wellbutrin in the future [...] lab work and TSH with her PCP. [facility] Work Phone: 1(270) 907-117102-22-2024 Evaluation note* Author Rolando Castellanos [facility] Authored November 22, 2023 12:47pm Highest [...] given. 1. Prediabetes most recent A1c of 5.4-ittjv-ayky treatment with long-term healthy lifestyle change, decreased [...] house. She continues to work with our real estate investor. She understands the need for preplanning, following the plate method, having healthy foods around, keeping unhealthy foods out of her house and eating healthy Whole Foods. She does not like to cook or prep. She understands that shopping, chopping and preplanning so that she can eat healthy foods is essential to her recovery. She will continue to work with our real estate investor. We could consider Wellbutrin in the future [...] lab work and TSH with her PCP. [facility] Work Phone: 1(978) 528-939102-22-2024 Evaluation note* Author Rolando Castellanos [facility] Authored November 22, 2023 12:47pm Highest [...] given. 1. Prediabetes most recent A1c of 5.2-refgc-fnjf treatment with long-term healthy lifestyle change, decreased [...] house. She continues to work with our real estate investor. She understands the need for preplanning, following the plate method, having healthy foods around, keeping unhealthy foods out of her house and eating healthy Whole Foods. She does not like to cook or prep. She understands that shopping, chopping and preplanning so that she can eat healthy foods is essential to her recovery. She will continue to work with our real estate investor. We could consider Wellbutrin in the future [...] TSH with her PCP. Author Estephania Mao [facility] Authored January 03, 2024 11:1 8am [...] given. 1. Prediabetes most recent A1c of 5.8-xoudv-tkfi treatment with long-term healthy lifestyle change, decreased [...] house. She continues to work with our real estate investor. She understands the need for preplanning, following the plate method, having healthy foods around, keeping unhealthy foods out of her house and eating healthy Whole Foods. She does not like to cook or prep. She understands that shopping, chopping and preplanning so that she can eat healthy foods is essential to her recovery. She will continue to work with our real estate investor. We could consider Wellbutrin in the future [...] lab work and TSH with her PCP. [facility] Work Phone: 1(435) 509-699702-22-2024 Evaluation note* Author Rolando Castellanos [facility] Authored November 22, 2023 12:47pm Highest [...] given. 1. Prediabetes most recent A1c of 5.7-mrlvz-iqie treatment with long-term healthy lifestyle change, decreased [...] house. She continues to work with our real estate investor. She understands the need for preplanning, following the plate method, having healthy foods around, keeping unhealthy foods out of her house and eating healthy Whole Foods. She does not like to cook or prep. She understands that shopping, chopping and preplanning so that she can eat healthy foods is essential to her recovery. She will continue to work with our real estate investor. We could consider Wellbutrin in the future [...] TSH with her PCP. Author Rolando Castellanos [facility] Authored January 03, 2024 11:3 9am [...] given. 1. Prediabetes most recent A1c of 5.6-vdmzo-uifi treatment with long-term healthy lifestyle change, decreased [...] join the gym and start with a new product trainer. She should consider pool therapy/ water therapy. She needs to try to keep her trigger foods out of the house. She is to try to find healthier desserts and she tends to like to have 1 after each meal. Lately her cravings for sweets have been decreased. She continues to work with our real estate investor. She understands the need for preplanning, following the plate method, having healthy foods around, keeping unhealthy foods out of her house and eating healthy Whole Foods. She does not like to cook or prep. She understands that shopping, chopping and preplanning so that she can eat healthy foods is essential to her recovery. She will continue to work with our real estate investor. We could consider Wellbutrin in the future [...] lab work and TSH with her PCP. [facility] Work Phone: 1([phone]) 475-713402-01-2024 Evaluation note* Encounter Date Diagnosis Assessment Notes Treatment Notes Treatment Clinical Notes Nov, Hypothyroidism (ICD-10 - E03.9) Pt due for labs - will recheck Nov, Elevated fasting glucose (ICD-10 - R73.01) Continue healthy diet and exercise as able. [facility] Other 01-17-2024 Evaluation note* Encounter Date Diagnosis Assessment Notes Treatment Notes Treatment Clinical Notes Oct, Aftercare following joint replacement surgery (ICD-10 - Z47.1) Oct, Presence of right artificial hip joint (ICD-10 - Z96.641) Oct, Other [facility] on 09/03/2023 Doing well Patient may continue increasing activities as tolerated. Continue taking vhfk-ljz-zqrqgpr anti-inflammatorie s as needed for assistance with swelling and pain associated with the operative extremity. Follow-up in 6 weeks for repeat examination and repeat x-rays. [facility] Other 01-15-2024 Evaluation note* Encounter Date Diagnosis Assessment Notes Treatment Notes Treatment Clinical Notes Oct, Obesity (ICD-10 - E66.9) Oct, BMI 40.0-44.9, adult (ICD-10 - Z68.41) Oct, Other Summary of Visi t: (A) Discussed including more vegetables (B) Discussed plant proteins (C) Provided recipes [facility] Other 01-02-2024 Evaluation note* Encounter Date Diagnosis Assessment Notes Treatment Notes Treatment Clinical Notes Oct, Hypothyroidism (ICD-10 - E03.9) [facility] Other 12-20-2023 Evaluation note* Encounter Date Diagnosis [...] right artificial hip joint (ICD-10 - Z96.641) [facility] Other 12-19-2023 Evaluation note* Encounter Date Diagnosis [...] Aug, Metabolic syndrome X (ICD-10 - E88.81) [facility] Other 12-19-2023 Evaluation note* Author Rolando Castellanos [facility] Authored November 22, 2023 11:47am Highest [...] given. 1. Prediabetes most recent A1c of 5.8-gwifj-jdwu treatment with long-term healthy lifestyle change, decreased [...] house. She continues to work with our real estate investor. She understands the need for preplanning, following the plate method, having healthy foods around, keeping unhealthy foods out of her house and eating healthy Whole Foods. She does not like to cook or prep. She understands that shopping, chopping and preplanning so that she can eat healthy foods is essential to her recovery. She will continue to work with our real estate investor. We could consider Wellbutrin in the future [...] lab work and TSH with her PCP. [facility] Work Phone: 1([phone]) 438-262012-18-2023 Evaluation note* Encounter Date Diagnosis Assessment Notes Treatment Notes Treatment Clinical Notes Aug, Obesity (ICD-10 - E66.9) Aug, BMI 40.0-44.9, adult (ICD-10 - Z68.41) Aug, Other Summary of Visi t: (A) Discussed including more vegetables (B) Answered general nutrition-related questions (C) DIscussed options for including more water [facility] Other 12-01-2023 Evaluation note* Encounter Date Diagnosis [...] patient could proceed with surgery safely. The assistant accounting manager was vital for surgery timing and [...] plans. Prolonged services time spent: 31 minutes [facility] Other 11-30-2023 Evaluation note* Encounter Date Diagnosis [...] therapy arrives. Joints Meeting Checklist - Pharmacy: [facility] to bed - Approach/Technique: anterior, Cro[place]ell bed - Implants: Avenir Complete/G7; - Anesthesia: general vs spinal - Blocks: Fascia iliaca - Preop Antibiotics: Ancef and Vanco - TXA: yes-systemic - Positioning/OR Bed: supine on Croswell bed - Intraop X-ray: yes - Alejandra: [...] above surgery. OARRS report generated and reviewed. [facility] Other 11-21-2023 Evaluation note* Encounter Date Diagnosis [...] symptoms. Any developing patterns. Stay well hydrated. [facility] Other 11-13-2023 Evaluation note* Encounter Date Diagnosis Assessment Notes Treatment Notes Treatment Clinical Notes Aug, Obesity (ICD-10 - E66.9) Aug, BMI 40.0-44.9, adult (ICD-10 - Z68.41) Aug, Other Summary of Visi t: (A) Continue current regimen (B) Much emotional support provided today (C) Encouraged continued follow up with counselor [facility] Other 10-31-2023 Evaluation note* Encounter Date Diagnosis Assessment Notes Treatment Notes Treatment Clinical Notes Jul, Acute laryngitis (ICD-10 - J04.0) Patient denies bacterial infection symptoms such as fever facial pressure or chills. Patient has not taken a COVID test. Discussed vamm-fbe-wvgympu medications to use along with steroid pills that can improve her discomfort and laryngitis going forward. Advised that the steroids could elevate her blood sugar and to be mindful of that accordingly. 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 (ICD-10 - Z79.899) Jul, Other osteoporosis without current pathological fracture (ICD-10 - M81.8) Jul, Osteoarthritis of right hip (ICD-10 - M16.11) [facility] Other 10-23-2023 Evaluation note* Encounter Date Diagnosis Assessment Notes Treatment Notes Treatment Clinical Notes Jul, Obesity (ICD-10 - E66.9) Jul, BMI 40.0-44.9, adult (ICD-10 - Z68.41) Jul, Other Summary of Visi t: (A) Continue current regimen (B) Discussed ways to include more water (C) Discussed ways to include more vegetables [facility] Other 09-27-2023 Evaluation note* Encounter Date Diagnosis [...] the patient works on weight loss management. [facility] Other 09-18-2023 Evaluation note* Encounter Date Diagnosis [...] meals available that fit the plate method [facility] Other 09-14-2023 Evaluation note* Encounter Date Diagnosis [...] Jun, Metabolic syndrome X (ICD-10 - E88.81) [facility] Other 09-11-2023 Evaluation note* Encounter Date Diagnosis [...] E55.9) discussed supplementation. will check D level. [facility] Other 08-28-2023 Evaluation note* Encounter Date Diagnosis Assessment Notes Treatment Notes Treatment Clinical Notes May, Hypothyroidism (ICD-10 - E03.9) [facility] Other 08-14-2023 Evaluation note* Encounter Date Diagnosis Assessment Notes Treatment Notes Treatment Clinical Notes May, Obesity (ICD-10 - E66.9) May, BMI 40.0-44.9, adult (ICD-10 - Z68.41) May, Other Summary of Visi t: (A) Discussed cooking various foods (B) Find control in indulgences (C) Reviewed the plate method [facility] Other 07-17-2023 Evaluation note* Encounter Date Diagnosis Assessment Notes Treatment Notes Treatment Clinical Notes Mar, Obesity (ICD-10 - E66.9) Mar, BMI 40.0-44.9, adult (ICD-10 - Z68.41) Mar, Other Summary of Visi t: (A) Discussed cooking various foods (B) Find control in indulgences (C) emphasize self-care [facility] Other 05-17-2023 NotePROCEDURE: XR FOOT LT MIN [...] Electronically authenticated by: ARIELA SCHWAB Date: 2023-02-14 06:48[facility]04-13-2023 Evaluation note* Encounter Date Diagnosis [...] 2. Increase veggies, follow the plate method [facility] Other 03-14-2023 Evaluation note* Encounter Date Diagnosis Assessment Notes Treatment Notes Treatment Clinical Notes Nov, Abnormal laboratory test result (ICD-10 - R89.9) [facility] Other 03-08-2023 NoteOPERATIVE NOTE OPERATION DATE: 12/06/2022 [...] in 10 years. CC: Waqas Pierce M.D.[facility] [id number] Evaluation note* Encounter Date Diagnosis Assessment Notes [...] - M16.10) Nov, Hypertension (ICD-10 - I10) [facility] Other 02-14-2023 Evaluation note* Encounter Date Diagnosis [...] patient set personal goal using given handout. [facility] Other 02-08-2023 NoteChief Complaint consultation for colonoscopy [...] Years., 11/08/2022 Family History (more content not included)...[facility]Result Comment: Electronically Signed By: SOPHIA PINEDA, Efrain Layne\Date and Time Signed: 11/08/22 15:29 [id number] Evaluation note* Encounter Date Diagnosis Assessment Notes [...] - G47.33) presently compliant with machine, etc [facility] Other 01-13-2023 Evaluation note* Encounter Date Diagnosis [...] Patient is interested in meeting with our grain elevator operator, telephone encounter started to connect with her [...] the week. Encouraged to take advantage of grain elevator operator available at [facility] that can help work around limitations. She is open to meeting with our grain elevator operator for guidance on exercises she can complete with her severe limitations from her foot, hip and back. Telephone encounter started. Oct, Plantar fasciitis (ICD-10 - M72.2) Oct, Arthritis of hip (ICD-10 - M16.10) Oct, Impaired fasting glucose (ICD-10 - R73.01) [facility] Other 12-07-2022 Evaluation note* Encounter Date Diagnosis [...] while she works on her weight loss. [facility] Other 11-18-2022 NotePROCEDURE: XR HIP RT 2 [...] Electronically authenticated by: SHAWNEE KELLY Date: 2022-08-18 15:54[facility]11-18-2022 NotePROCEDURE: XR FOOT LT MIN [...] Electronically authenticated by: SHAWNEE KELLY Date: 2022-08-18 15:42[facility]09-16-2022 NotePROCEDURE: XR FOOT LT MIN [...] Electronically authenticated by: SHAWNEE KELLY Date: 2022-06-16 16:24[facility]09-16-2022 NotePROCEDURE: XR FOOT LT MIN [...] authenticated by: SHAWNEE KELLY Date: 2022-06-16 16:24[facility] [id number] NotePROCEDURE: XR FOOT LT MIN 3 VIEWS COMPARISON: 04/24/2022 HISTORY: Pain in left foot FINDINGS: BONES:Stable postsurgical changes with subtalar fusion, medial midfoot hindfoot fusion and spacer at the first tarsometatarsal joint. No mechanical failure. Severe degenerative changes. SOFT TISSUES:Extensive soft tissue swelling.Dorsal woundvac EFFUSION:None visible. OTHER: Negative. IMPRESSION: Stable degenerative and post surgical changes Electronically authenticated by: SHAWNEE KELLY Date: 2022-05-11 17:16[facility]07-25-2022 NotePROCEDURE: XR FOOT LT MIN [...] Electronically authenticated by: ARIELA SCHWAB Date: 2022-04-24 14:11[facility] [facility]22 NotePROCEDURE: XR FOOT LT 2V [...] authenticated by: ARIELA SCHWAB Date: 2022-04-24 11:54[facility] [id number] NotePROCEDURE: XR FOOT LT MIN 3 VIEWS [...] authenticated by: ARIELA SCHWAB Date: 2022-04-22 20:52[facility] [id number] NotePROCEDURE: XR FOOT LT MIN 3 VIEWS [...] Electronically authenticated by: SHAWNEE KELLY Date: 2022-04-14 17:03[facility]10-25-2021 Evaluation note* Encounter Date Diagnosis [...] Patient care instructions given in writting by [facility] Home document. [facility] Other 09-23-2021 Evaluation note* Encounter Date Diagnosis [...] note writ ten by Safia Calderon CMA, [employer]. Edited and approved by Dr. Junior Mcgowan MD. [facility] Other Evaluation + Plan note No data available for this section General Surgery [place] Evaluation noteNo InformationNort Turpitude Other Evaluation noteNo assessment information available [facility] Work Phone: Evaluation note* Diagnosis Onset Date Resolution Status Change in voice acute Essential (primary) hypertension acute Family history of von Willebrand disease acute Hyperlipidemia acute Hypothyroidism acute [facility] Work Phone: Evaluation note* Diagnosis Onset Date Resolution Status Change in voice acute Essential (primary) hypertension acute Family history of von Willebrand disease acute Hyperlipidemia acute Hypothyroidism acute Medicare annual wellness visit, subsequent acute [facility] Work Phone: Hisloto general Narrative - Reported* Type Description Date Medical History DDD (degenerative disc disease), lumbar Surgical History hip replacement Surgical History tonsillectomy Surgical History carpal tunnel release bilateral Hospitalization History see above [facility] Other Hisvjrt general Narrative - Reported* Type Description Date Medical History DDD (degenerative disc disease), lumbar Medical History spinal stenosis Surgical History hip replacement Surgical History tonsillectomy Surgical History carpal tunnel release bilateral Surgical History vein ablasion Hospitalization History see above [facility] Other Hisesfx general Narrative - Reported* Type Description Date Medical History DDD (degenerative disc disease), lumbar Medical History spinal stenosis Surgical History hip replacement Surgical History tonsillectomy Surgical History carpal tunnel release bilateral Surgical History vein ablasion Surgical History skin graft left foot Hospitalization History see above [facility] Other Hisqpxh general Narrative - Reported* Type Description Date [...] x3 202 2 Hospitalization History see above [facility] Other History general Narrative - Reported* Type [...] HIp replacement 09/03/23 Hospitalization History see above [facility] Other Hospital Discharge instructions No data available for this section General Surgery [facility] Discharge instructions Additional Instructions Joint Replacement Discharge Instructions Your safety during your recovery process is important to us. Please seek immediate emergency care if you have sudden chest pain or shortness of breath. Additionally, please call our office at [phone] should any of the following occur: wound [...] walk without your walker and your healthcare representative until the therapist checks you the following [...] and/or laxatives as directed. You may take ieyc-guq-falcxhe Benadryl if itching occurs without a rash or hives. Icing and elevation will help relieve pain as well, do not underestimate the power of ice and elevation. We do recommend that you stop taking narcotic pain medications by 4-6 weeks after surgery and if necessary, continue to use anti-inflammatory medications such as Mobic (meloxicam), Celebrex (celecoxib), or an cxhu-cnc-nurggrh medication (Aleve, Motrin, Ibuprofen, etc). Driving an [...] feel free to call our office at [phone]. You are a priority of ours and we will not be upset with you if you call. We would much rather you call to confirm aspects of your recovery process as opposed to possibly hindering your recovery with inappropriate care. We are committed to providing you with the best care possible. David Mcfarland II, MD Updated 12/15/2022[facility] Work Phone: Progress note No data available for this section General Surgery [place] Reason for referral (narrative)* Reason Appt: Diagnosis 1 Depression (F32.9) Referral Organization [facility] Referring Provider First Name Rolando Referring Provider Last Name Jasmin Referring Provider Specialty Internal Me dicine Referred Organization [facility] Natalia Referred Address [address] [place],[phone] Referred Provider Specialty Miscellaneou s Referral Priority Routine General Notes Anna Jose 2022 01:07:39 PM >Please contact patient to schedule. [facility] Other Summary Purpose Family History No Family [...] RD WM f/u Sick-Did not test for [id number] Reason for Visit Sinusitis, acute max illary BMI 40.0-44.9, adult Fatty liver Hyperlipidemia Hypertension Pre-diabetes Aftercare following joint replacement Chest congestion Cough Chief Complaint Rd Wm F/U Obesity z47.[address] WM f/u Sinus infection WMN F/UP Z47.1 - Aftercare following joint replacement surg [address] WM f/u Sick-Did not test for [id number] Reason for Visit Sinusitis, acute max illary BMI 40.0-44.9, adult Fatty liver Hyperlipidemia Hypertension Pre-diabetes Aftercare following joint replacement Bronchitis Chest congestion Cough Chief Complaint Rd Wm F/U Obesity z47.[address] WM f/u BH Sinus infection WMN F/UP Z47.1 - Aftercare following joint replacement surg [address] WM f/u Sick-Did not test for [id number] RD WM f/u Reason for Visit Sinusitis, [...] RD WM f/u Sick-Did not test for [id number] RD WM f/u Habit forming Reason for Visit Sinusitis, acute max illary BMI 40.0-44.9, adult Fatty liver Hyperlipidemia Hypertension Pre-diabetes Aftercare following joint replacement Bronchitis Chest congestion Cough BMI 40.0-44.9, adult Fatty liver Hyperlipidemia Pre-diabetes Chief Complaint Z47.1 - [facility]care fo [facility] joint replacement surg [address] WM f/u Sick-Did not test for [phone] RD WM f/u Habit forming Reason for Visit Aftercare following joint replacement Bronchitis Chest congestion Cough BMI 40.0-44.9, adult Fatty liver Hyperlipidemia Pre-diabetes Chief Complaint BH RD WM f/u Sick-Did not test for [id number] RD WM f/u Habit forming Reason for [...] and content) DATE CREATED AUTHOR 04/29/2021 [facility] DATE CREATED AUTHOR AUTHOR'S ORGANIZ ATION 12/20/2022 [facility] DATE CREATED AUTHOR AUTHOR'S ORGANIZ ATION 03/09/2023 [facility] DATE CREATED AUTHOR AUTHOR'S ORGANIZ ATION 08/19/2024 [facility] DATE CREATED AUTHOR AUTHOR'S ORGANIZ ATION 08/23/2024 [facility] DATE CREATED AUTHOR AUTHOR'S ORGANIZ ATION 08/30/2024 [facility] REASON FOR VISIT (unrecogniz ed [...] End: December 26, 2023 Carrie Bhakta APRN DEVELOPMENT DISABILITY SPECIALIST-C Attending Provider Act pradeep Start: December 26, [...] Inactive Member Role Status Dates Grecia Pham [facility] Attending Provider Active Start: October [...] Inactive Member Role Status Dates Grecia Pham [facility] Attending Provider Active Start: September [...] BE BASED ON THE PRIMARY CLINICAL RECORDS. [employer] provides no warranty or guarantee of the accuracy or completeness of information in this document.
== END 2024-09-29 16:21 | disposition home or self-care (01) ==
LOC: RAD 16:20
PROVIDERS: PCP Family Medicine; Visit Provider Family Medicine
DX: J18.9 Pneumonia, unspecified organism (principal)
CPT/HCPCS: 71046

== ENCOUNTER 2024-10-08 08:21 | Outpatient (OUT) | payer MEDICARE, SELFPAY ==
--- NOTE | 2024-10-08 08:42 | P.CN_ITS ---
Consult Note: HPI Data of Consult Patient: known to practice within the last 3 years Consult date: 08/18/24 Requesting Physician: Roxie Calixto NP Primary Care Provider: Yuliana Cortez MD Consult Narrative Reason for consult: low back, bilateral LE pain Narrative: 64yof who presents for evaluation. longstanding low back and bilateral LE pain. previously had injection therapy >3 years ago, which provided relief. has engaged in a series of provider directed home exercises > 6 weeks, without lasting benefit. uses otc pain meds as needed. denies adverse med side effects. recently underwent lumbar MRI with results below. recently underwent bilateral L3/4 TFESI with 50% improvement in L3/4 pain. Continues to have moderate to severe pain following L4-5 cc:: CC: Roxie Calixto NP Review of Systems ROS Status of ROS 10 or more systems reviewed and unremark able except as noted in history and below Musculoskeletal Reports: back pain and extremity pain PFSH PFSH Medical History (Updated 10/08/24 @ 08:47 by Roxie Calixto NP) Spinal stenosis ?M48.00 - Spinal stenosis, site unspecified (ICD-10) Carpal tunnel syndrome ?G56.00 - Carpal tunnel syndrome, unspecified upper limb (ICD-10) Anxiety ?F41.9 - Anxiety disorder, unspecified (ICD-10) Hiatal hernia ?K44.9 - Diaphragmatic hernia without obstruction or gangrene (ICD-10) Acid reflux ?K21.9 - Gastro-esophageal reflux disease without esophagitis (ICD-10) Fatty liver ?K76.0 - Fatty (change of) liver, not elsewhere classified (ICD-10) Sleep apnea ?G47.30 - Sleep apnea, unspecified (ICD-10) High cholesterol ?E78.00 - Pure hypercholesterolemia, unspecified (ICD-10) HTN (hypertension) ?I10 - Essential (primary) hypertension (ICD-10) Diabetes ?E11.9 - Type 2 diabetes mellitus without complications (ICD-10) Surgical History (Updated 09/23/24 @ 12:24 by Diamond Hernandez RN) History of foot surgery ?Z98.890 - Other specified postprocedural states (ICD-10) History of total hip arthroplasty ?Z96.649 - Presence of unspecified artificial hip joint (ICD-10) S/P trigger finger release ?Z98.890 - Other specified postprocedural states (ICD-10) History of carpal tunnel release ?Z98.890 - Other specified postprocedural states (ICD-10) Hx of tonsillectomy ?Z90.89 - Acquired absence of other organs (ICD-10) Social History Little interest or pleasure in doing things: not at all Feeling down, depressed, or hopeless: not at all Meds Home Medications and Allergies Home Medications ?Medication ?Instructions ?Recorded ?Confirmed ?Type acetaminophen 325 mg tablet 325 mg PO BID PRN pain 08/18/24 09/29/24 History (Tylenol) atorvastatin 20 mg tablet 20 mg PO DAILY 08/18/24 09/29/24 History cholecalciferol (vitamin D3) 1,250 50,000 unit PO QWEEK 08/18/24 09/29/24 History mcg (50,000 unit) capsule coenzyme Q10 75 mg capsule (Ultra 75 mg PO DAILY 08/18/24 09/29/24 History CoQ10) levothyroxine 75 mcg capsule 75 mcg PO DAILY 08/18/24 09/29/24 History loratadine 5 mg-pseudoephedrine ER 1 tab PO DAILY PRN allergy symptoms 08/18/24 09/29/24 History 120 mg tablet,extended release,12hr (Claritin-D 12 Hour) metoprolol succinate 25 mg 25 mg PO DAILY 08/18/24 09/29/24 History tablet,extended release 24 hr pantoprazole 40 mg tablet,delayed 40 mg PO DAILY 08/18/24 09/29/24 History release Allergies Allergy/AdvReac Type Severity Reaction Status Date / Time Penicillins Allergy Unknown Unknown Verified 09/29/24 07:23 seritonin Allergy Unknown Unknown Uncoded 09/29/24 07:23 Exam Narrative Exam Narrative: Psych-alert and oriented x 3. Attentive and appropriate, constitutionally normal, displays normal mood and affect per situation. There are no obvious deficits in memory, reasoning, or intellect.? Skin-no obvious rashes, bruising, erythema noted to the patient's area of pain.? Extremities- extremities are warm with minimal edema and palpable pulses. Thoracic/Lumbar-tenderness to palpation noted in the thoracic/lumbar spine and paraspinal musculature. Pain is elicited with flexion, extension, and lateral rotation of the thoracic/lumbar spine. Range of motion is diminished with these motions. Facet loading maneuvers are positive..? Strength-noted to be unremarkable with the exception of decreased strength rated at 4 out of 5 in bilateral quadriceps femoris, anterior tibialis. Sensory-no notable sensory deficits in the bilateral lower extremities to touch or pinprick in all dermatomal distributions with the exception to decreased sensation to the bilateral L 4, 5 dermatomal distribution Coordination remains intact.? Gait remains non-antalgic Results Imaging Lumbar MRI: Attestation: I have reviewed the pertinent imaging results. Radiologist's impression: There is dextroconvex scoliosis with apex at L3. Straightening of the lumbar spine. No subluxation. No compression fractures. Moderate disc space narrowing in the lower thoracic spine to the L2-L3 level and mild disc space narrowing in the remaining lumbar spine. Modic type I changes at L1-L2. Conus medullaris terminates at L2. No abnormal signal in the distal spinal cord and the conus medullaris. L5-S1: Broad-based disc protrusion, moderate facet arthropathy and ligamentum flavum hypertrophy. Mild spinal canal, moderate to severe right and moderate left foraminal stenosis. L4-L5: Disc bulge, severe facet arthropathy and ligamentum flavum hypertrophy. Moderate to severe spinal canal and bilateral lateral recess stenosis and mild bilateral foraminal stenosis. L3-L4: Disc bulge and moderate facet arthropathy. Mild to moderate spinal canal and left foraminal stenosis. L2-L3: Disc bulge and moderate facet arthropathy. Superimposed small right subarticular disc extrusion or sequestration with inferior migration. No spinal canal stenosis. Minimal bilateral foraminal stenosis. L1-L2: Disc bulge and mild facet arthropathy. No spinal canal stenosis. Moderate right foraminal stenosis. T12-L1: Minimal disc bulge without spinal canal or significant neural foraminal stenosis. Assessment and Plan Assessment and Plan (1) Lumbar stenosis with neurogenic claudication: (2) Lumbar spondylosis: (3) Myalgia, other site: (4) Chronic thoracic back pain: Plan proceed with bilateral L4-5 TFESI for lumbar stenosis with NC under fluoroscopy. risks vs benefits reviewed update thoracic xray to assess chronic pain continue HEP as tolerated continue tylenol PRN f/u after injection
== END 2024-10-08 08:22 | disposition home or self-care (01) ==
LOC: PM 08:22
PROVIDERS: PCP Family Medicine; Visit Provider Nurse Practitioner
DX: M48.062 Spinal stenosis, lumbar region with neurogenic claudication (principal); M47.816 Spondylosis without myelopathy or radiculopathy, lumbar region; M79.18 Myalgia, other site; M54.6 Pain in thoracic spine; G89.29 Other chronic pain
CPT/HCPCS: G0463

== ENCOUNTER 2024-10-08 09:16 | Outpatient (OUT) | payer MEDICARE, SELFPAY ==
--- NOTE | 2024-10-08 09:18 | XR_ITS ---
The [address] [address] Patient Name: NAVARRO SMITH MRN: [id number] date: 1960 Sex: F Assigned Patient Location: [facility] Current Patient Location: [facility] Accession/Order Number: [id number] Exam Date: 10/08/2024 09:25 Report Date: 10/08/2024 09:59 At the request of: PITER HEREDIA Procedure: XR thoracic spine 2V EXAMINATION: XR thoracic spine 2V HISTORY: PAIN COMPARISON: No relevant comparison available. FINDINGS: BONES: Mild widespread spondylosis and facet osteoarthritis. No visible acute bony abnormality. DISC SPACES: Normal. No significant disc height narrowing, subluxation, or endplate abnormality. PARASPINOUS: Negative. No paraspinous abnormality is seen. OTHER: Negative. XR/XR thoracic spine 2V IMPRESSION: Mild degenerative changes Electronically authenticated by: SHAWNEE RAPHAEL Date: 10/08/2024 09:59
== END 2024-10-08 09:17 | disposition home or self-care (01) ==
LOC: RAD 09:16
PROVIDERS: PCP Family Medicine; Visit Provider Nurse Practitioner
DX: M48.062 Spinal stenosis, lumbar region with neurogenic claudication (principal); M47.816 Spondylosis without myelopathy or radiculopathy, lumbar region; M79.18 Myalgia, other site; M54.6 Pain in thoracic spine; G89.29 Other chronic pain
CPT/HCPCS: 72070; G0463

== ENCOUNTER 2024-10-13 08:32 | Day surgery (SDC) | payer MEDICARE, SELFPAY ==
--- OUTSIDE RECORDS SUMMARY | 2024-10-13 08:48 | XMS_ITS | CCD ---
Author Organization [facility] Care Team Providers Care Wave Guide Assembler Name Role Phone SELF, REFERRED Referring Unavailable DAVID LR Admitting Unavailable DAVID LR Attending Unavailable WAQAS PIERCE Primary Care Unavailable DAVID LR Surgeon Unavailable WA Procedure Practitioner Unavailab JUDSON Martinez Surgeon Unavailable [place] Procedure Practitioner Unavailab Junior Peterson Unavailable Mallory Yuen Unavailable NON STAFF Primary Care Provider UnavailMD David Merritt II Attending Provider David Mcfarland II Unavailable MD Waqas Pierce Primary Care Provider [phone] MD Waqas Pierce Attending Provider [phone] WAQAS PIERCE Primary Care Physician [phone] Waqas Pierce Unavailable Rachel Vela Unavailable Rolando [...] Primary Care Unavailable AMY KASPER Attending Unavailable RENO, DR SHAWNEE James Consulting Unavailable AMY KASPER [...] MD David Mcfarland II Attending Provider [phone] MD Waqas Pierce Primary Care Provider NON STAFF Primary Care Provider Unavailsabino mendez Carrie Perea Unavailable MD David Mcfarland II Attending Provider MD Waqas Pierce Primary Care Provider NON STAFF Primary Care Provider UnavailMD Marcin Chambers Attending Provider MD David Mcfarland II Attending Provider [phone] MD David Mcfarland II Attending Provider MD Waqas Pierce Primary Care Provider NON STAFF Primary Care Provider UnavailMD Marcin Chambers Attending Provider [phone] MD Marcin Grace Attending Provider MD David Mcfarland II Attending Provider [phone] Pierce, MD Waqas E Primary Care Provider MD David Mcfarland II Attending Provider [phone] NON STAFF Primary Care Provider MD Marcin Zamorano Attending Provider ANITA TAFOYA Attending Unavailable Sergio PINEDA, Angel Grande Attending Unavailable Bartolo II, David Gordillo Admitting Unavailabl e NON STAFF Primary Care Unavailable Coryell AMAURI, David Gordillo Attending Unavailabl e Bartolo II, David Gordillo Attending Unavailabl e NON STAFF Primary Care Unavailable Coryell II, David Gordillo Admitting Unavailabl e Coryell II, David M Admitting Unavailabl e Pierce, Waqas E Primary Care Unavailable Bartolo II, David Gordillo Attending Unavailabl e Coryell II, David Gordillo Attending Unavailabl e Coryell II, David Gordillo Admitting Unavailabl e NON STAFF Primary Care Unavailable Bartolo AMAURI, David Gordillo Admitting Unavailabl e Pierce, Waqas E Primary Care Unavailable Bartolo II, David Gordillo Attending Unavailabl e Bartolo II, David Gordillo Attending Unavailabl e Bartolo II, David M Admitting Unavailabl e Pierce, Waqas E Primary Care Unavailable Keyur Pierce MDia Andrea Primary Care Provider Bartolo PINEDA, David Gordillo Attending Provider [phone] NON STAFF Primary Care Provider UnavailMarcin Chambers MD Attending Provider Easu Busch MD Attending Provider Allergies Allergy Classification Reported Allergen(s) Allergy Type Date of Onset Reaction(s) Facility metFORMIN (1 source) metFORMIN; Translations: [METFORMIN] Drug Allergy 12-17-19 [facility] Penicillins (antibiotic) (1 source) Penicillin Drug Allergy 03-11-20 18 [facility] Serotonin (1 source) Serotonin; Translations: [SEROTONIN] Drug Allergy 12-17-19 21 [facility] (20 sources) Penicillin G Drug Allergy 11-01-19 24 [facility] (20 sources) CYMBOLTA Propensity to adverse reactions temporary blindness and couldnt feel herself breathing [facility] Other (20 sources) DULoxetine; Translations: [duloxetine] Drug Allergy 09-05-20 22 Impairment level of vision (disorder) [facility] (20 sources) metFORMIN; Translations: [metformin] Drug Allergy 09-05-20 22 Abdominal mass (finding) [facility] (20 sources) Penicillin; Translations: [penicillin] Drug Allergy 08-08-20 13 Eruption of skin (disorder) [facility] (1 source) DULoxetine Drug Allergy [facility] (1 source) metFORMIN Drug Allergy [facility] (19 sources) Penicillins; Translations: [PENICILLINS] Drug allergy (disorder) 10-01-19 00 Rash [facility] (20 sources) Rx Essentials Antidepressant *HEMATOPOIETIC AGENTS Propensity to adverse reactions Comment:[employer] Other (3 sources) Allergies Reconciled Propensity to adverse reactions 08-17-20 21 Unknown [facility] (20 sources) Substance with penicillin structure and antibacterial mechanism of action (substance) Drug allergy Unknown [facility] Other (20 sources) Substance with serotonin re-uptake inhibitor mechanism of action (substance) Drug allergy 09-04-20 12 SEROTONIN HCL [facility] Other (3 sources) patient allergy list reviewed by nurse or physicia Propensity to adverse reactions 12-09-19 14 Comment:Done [facility] Other (17 sources) Serotonin Drug Allergy 08-28-20 23 temporary blindness, couldn't feel self breath [facility] (14 sources) Rx Essentials Antidepressant * Allergy to substance 11-01-19 Comment:[facility] Comment on above: Free Text Allergy: R x Essentials Antidepressant *HEMATOPOIETIC AGENTS Medications Current Medications Medication Drug Class(es) Dates [...] oral tablet (20 sources) Start: 01-03-2024 take 2 tablets by mouth twice daily Acetaminophen 500 mg tablet Active 1000 MG PO .COMPLEX January 03, 2024 10:02am 1,000 mg orally bid; Start: 01-03-2024 take 1000 mg by mout h twice daily Acetaminophen Active 1000 MG PO .COMPLEX January 03, 2024 10:02am 1,000 mg orally bid; Start: 12-26-2023 End: 01-03-2024 take 2 tablets by mouth every eight hours as needed Acetaminophen 500 mg tablet Discontinued 1000 MG PO Every 8 hours as needed December 25, 2023 11:00pm January 03, 2024 10:02am Start: 12-26-2023 End: 01-03-2024 take 1000 mg [...] DISCHARGE DOS: 09/03/23 Aug, Active Tylenol Active [id number] 200 actuat albuterol 0.09 mg/actuat metered dose inhaler (16 sources) beta2-Adrenergic Agonist Start: 05-08-2024 take 2 puff(s) by mouth every four to six hours as needed for wheezing Albuterol Sulfate 90 mcg/actuation HFA aerosol inhaler Active 0 .ROUTE .COMPLEX 6.7 May 08, [...] tablet (20 sources) HMG-CoA Reductase Inhibitor Start: 01-09-2024 End: 07-03-2024 take 1 tablet by mouth once daily Atorvastatin 20 mg tablet Active 0 .ROUTE .COMPLEX July 03, 2024 [...] MOUTH DAILY Start: 08-16-2020 End: 01-09-2024 take 1 tablet by mouth once daily at bedtime Atorvastatin 20 mg tablet Discontinued 20 MG PO Daily at bedtime August 28, 2023 12:00am January 09, 2024 1:16pm Atorvastatin Kay cium Active azithromycin 250 mg oral tablet (3 sources) Macrolide Antimicrobial Start: 08-01-2023 Azithromycin 250 MG as directed Orally 2 tabs po today, then 1 tab daily x 4 more days for 5 Aug, Active Baclofen (1 source) gamma-Aminobutyric Acid-ergic Agonist Baclofen 10 MG/5ML as directed Intrathecal Active Calcium + Vitamin D3 (20 sources) [...] Ordered docusate sodium 50 mg / sennosides, skilled nursing 8.6 mg oral tablet (12 sources) Start: 08-30-20 23 take 2 tablets by mouth every twenty-four [...] (20 sources) Corticosteroid Start: 11-22-2023 Fluticasone Propionate 50 mcg/actuation spray,suspension Active 1 SPRAY INTRANASAL Daily as needed for allergy symptoms November 22, 2023 12:00am take 1 spray(s) [...] mouth once daily in the morning Levothyroxine 75 mcg tablet Active 0 .ROUTE .COMPLEX July 03, 2024 1:03pm TAKE 1 TABLET BY MOUTH ONCE DAILY IN THE MORNING ON AN EMPTY STOMACH Start: 11-21-2023 End: 07-03-2024 take 1 tablet by mouth once daily in the morning Levothyroxine 50 mcg tablet Discontinued 0 .ROUTE .COMPLEX June 10, 2024 7:46am July 03, 2024 1:03pm TAKE 1 TABLET BY MOUTH ONCE DAILY IN THE MORNING ON AN EMPTY STOMACH Start: 08-28-2023 End: 11-21-2023 take 1 tablet by mouth once daily in the morning Levothyroxine 50 mcg tablet Discontinued 50 MCG PO Every morning August [...] Once a day for 30 days Active Magnesium (20 sources) take 1 tablet by mouth once daily Magnesium 250 MG 1 tablet with a meal Orally Once a day Active 24 hr metoprolol succinate 25 mg extended release oral tablet (20 sources) beta-Adrenergic Miranda Start: 11-08-2022 take 1 tablet by mouth once daily in the morning Metoprolol Succinate 25 mg tablet extended release 24 hr Active 25 MG PO Every morning August [...] Aug, Active Start: 08-16-2020 End: 11-21-2023 take 1 tablet by mouth once daily in the morning Pantoprazole 40 mg tablet,delayed release (DR/EC) Discontinued 40 MG PO Every morning August 28, 2023 12:00am November 21, 2023 12:47pm take 1 tablet by krysten th every twenty-four hours Pantoprazole Sodium 20 MG 1 tablet Orally Once a day Active Pantoprazole 40 mg tablet,delayed release (DR/EC) (4 sources) Start: 07-08-2024 take 1 tablet by mouth once daily Pantoprazole 40 mg tablet,delayed release (DR/EC) Active 0 .ROUTE .COMPLEX July 08, 2024 7:28am TAKE 1 TABLET BY MOUTH DAILY Start: 05-12-2024 End: 07-08-2024 take 1 tablet by mouth once daily Pantoprazole 40 mg tablet,delayed release (DR/EC) Discontinued 0 .ROUTE .COMPLEX May 12, 2024 10:42am July 08, 2024 7:28am TAKE 1 TABLET BY MOUTH DAILY Start: 03-11-2024 End: 05-12-2024 take 1 tablet by mouth once daily Pantoprazole 40 mg tablet,delayed release (DR/EC) Discontinued 0 .ROUTE .COMPLEX March 11, 2024 8:06am May 12, 2024 10:42am TAKE 1 TABLET BY MOUTH DAILY Start: 11-21-2023 End: 03-11-2024 take 1 tablet by mouth once daily Pantoprazole 40 mg tablet,delayed release (DR/EC) Discontinued 0 .ROUTE .COMPLEX November 21, 2023 12:47pm March 11, 2024 8:07am TAKE 1 TABLET BY MOUTH DAILY polyethylene glycol 3350 27083 mg powder for oral solution (14 sources) Osmotic Laxative Start: 08-04-2024 Polyethylene Glycol 3350 (Miralax) 17 gram powder in packet Active 17 GM PO Daily as needed for constipation August 04, 2024 12:00am Start: 08-30-2023 MiraLax [...] (1999) (3 sources) take 1 capsule by [facility] [place] once daily Vitamin D 50 MCG (1999) 1 capsule Orally Once a day Active Completed/Discontinued Medications Medication Drug Class(es) Dates Sig (Normalized) Sig (Original) acetaminophen 325 mg / HYDROcodone bitartrate 5 mg oral tablet (20 sources) Opioid Agonist HYDROcodone-Acet am inophen 5-325 MG TAKE 1 TO 2 TABLETS BY MOUTH EVERY 6 TO 8 HOURS NEEDED max 5 (FIVE) TABLET per 24 HOURS Oral for 6 Days PRN Not-Taking Albuterol Sulfate 90 mcg/actuation HFA aerosol inhaler (1 source) Start: 01-01-2024 End: 05-08-2024 take 1 puff(s) by inhalation every four to six hours as needed for wheezing Albuterol Sulfate 90 mcg/actuation HFA aerosol inhaler Discontinued 2 PUFF INHALATION EVERY 4-6 HOURS as needed for shortness of breath or wheezing 6.7 December 31, 2023 11:00pm May 08, 2024 8:56am benzonatate 200 mg oral capsule (4 sources) Non-narcotic Antitussive Start: 08-25-2024 End: 09-29-2024 Benzonatate 200 mg capsule Discontinued 200 MG PO 2-3 TIMES PER DAY as needed for cough August 25, 2024 12:00am September 29, 2024 2:17pm Start: 08-01-2023 take 1 capsule by [facility] [place] every eight hours Benzonatate 200 MG 1 capsule Orally Three times a day for 10 day(s) Aug, Active bifidobacterium infantis 4 mg oral capsule (20 sources) Align - as direc janell Orally Not-Taking cefadroxil 500 mg oral capsule (15 sources) Cephalosporin Antibacterial Start: 08-30-20 take 1 capsule by mouth every twelve hours Cefadroxil 500 MG 1 tablet Orally every 12 hrs for 7 days MED TO BED UPON DISCHARGE DOS: 09/03/23 Aug, Not-Taking/PRN diclofenac sodium 75 mg delayed release oral tablet (20 sources) Nonsteroidal Anti-inflammatory Drug Start: 12-21-19 End: 08-27-20 take 1 tablet by mouth twice daily Diclofenac Sodium 75 mg tablet,delayed release (DR/EC) Discontinued 0 .ROUTE .COMPLEX 180 March 11, 2024 8:07am August 27, 2024 12:40pm TAKE 1 TABLET BY MOUTH TWICE DAILY Start: 11-22-2023 End: 12-21-2023 take 1 tablet by mouth twice daily Diclofenac Sodium 75 mg tablet,delayed release (DR/EC) Discontinued 75 MG PO Twice daily November 22, 2023 12:00am December 21, 2023 2:38pm Start: 08-28-2023 End: 09-03-2023 take 1 tablet by mouth twice daily Diclofenac Sodium 75 mg tablet,delayed release (DR/EC) Discontinued 75 MG PO Twice daily August 28, 2023 12:00am September 03, 2023 6:50am Diclofenac Activ e doxycycline monohydrate 100 mg oral capsule (14 sources) Tetracycline-class Drug Start: 12-26-2023 End: 02-21-2024 take 1 capsule by mouth twice daily Doxycycline Monohydrate 100 mg capsule Discontinued 100 MG PO Twice daily 20 07December 25, 2023 11:00pm February 21, 2024 9:19am Start: 10-19-2019 take 1 capsule by [facility] [place] [facility] every twelve hours Doxycycline Monohydrate 100 MG 1 capsule Orally every 12 hrs for 7 days Oct, Not-Taking 24 hr loratadine 10 mg / pseudoephedrine sulfate 240 mg extended release oral tablet (20 sources) alpha-Adrenergic Agonist Start: 12-26-2023 End: 09-29-2024 take 1 tablet by mouth once daily as needed, then take 1 tablet by mouth every twenty-four hours as needed Loratadine-Pseudoephedrine (Claritin-D 24 Hour) 10-240 mg tablet extended release 24 hr Discontinued 1 TAB PO Daily as needed for allergy symptoms December 25, 2023 11:00pm September 29, 2024 2:17pm take 10-240 mg by mouth once as needed Claritin-D 24 Hour 10-240 MG 1 tablet as needed Orally prn Active methylPREDNISolone 4 mg oral tablet (4 sources) [...] mg / trimethoprim 160 mg oral tablet (13 sources) Dihydrofolate Reductase Inhibitor Antibacterial, Sulfonamide Antimicrobial Start: 11-21-2023 End: 12-26-2023 take 1 tablet by mouth twice daily Sulfamethoxazole- Trimethoprim 800-160 mg tablet Discontinued 1 TAB PO Twice daily November [...] Episodic Chronic obstructive pulmonary disease and bronchiectasis (15 sources) Bronchitis; Translations: [Bronchitis, not specified as acute or chronic] 12-26-2023 Episodic Chronic ulcer of skin (11 sources) Non-pressure chronic ulcer of left heel and midfoot with fat layer exposed; Translations: [Non-pressure chronic ulcer of left heel and midfoot with necrosis of bone] Onset: 2 Chronic Coagulation and hemorrhagic disorders (3 sources) Finding related to bruising; Translations: [Spontaneous ecchymoses] 06-17-2024 Episodic Coma; stupor; and brain damage (20 sources) Excessive daytime sleepiness - normal night sleep; Translations: [Somnolence] Onset: 3 Episodic Complications of surgical procedures or medical care (4 sources) Disruption of internal operation (surgical) wound, not elsewhere classified, initial encounter; Translations: [Dehiscence of surgical wound] Onset: 2 Episodic Deficiency and other anemia (2 sources) Anemia; Translations: [Anemia, unspecified] 07-03-2024 Episodic Deficiency and other anemia (1 source) Anemia, unspecified; Translations: [Anemia, unspecified] 08-04-2024 Episodic Diabetes mellitus without complication (20 sources) [...] following joint replacement surgery] Chronic Other aftercare (9 sources) Aftercare following joint replacement surgery; Translations: [Aftercare following joint replacement] Onset: 4 Chronic Other aftercare (2 sources) Other long term care social worker (current) drug therapy; Translations: [OTH BANKRUPTCY LEGAL ASSISTANT CURRENT DRUG THERAPY] Onset: 3 Episodic Other circulatory disease (3 sources) Elevated blood-pressure reading without diagnosis of hypertension; Translations: [Elevated blood-pressure reading, without diagnosis of hypertension] Episodic Other circulatory disease (11 sources) Pulmonary congestion ; Translations: [Other specified [...] hip joint] Chronic Other connective tissue disease (4 sources) Presence of right artificial hip joint; Translations: [Hip joint replacement] Onset: 4 Chronic Other connective tissue disease (1 source) History of total hip arthroplasty; Translations: [Presence of right artificial hip joint] 08-27-2024 Chronic Other connective tissue disease (2 sources) [...] History of rectal bleeding 03-04-2021 Episodic Other gastrointestinal disorders (1 source) Abdominal bloating; Translations: [Abdominal distension (gaseous)] 08-12-2024 Episodic Other gastrointestinal disorders (1 source) Abdominal distension (gaseous); Translations: [Flatulence, eructation, and gas pain] 08-04-2024 Episodic Other inflammatory condition of skin (3 sources) Rosacea; Translations: [Rosacea, unspecified] Onset: 9 Chronic Other liver diseases (20 sources) Steatosis of liver; Translations: [Fatty (change of) liver, not elsewhere classified] Onset: 7 11-22-2023 Chronic Other liver diseases (20 sources) Fatty (change of) liver, not elsewhere classified; Translations: [Other chronic nonalcoholic liver disease] Onset: 3 Chronic Other lower respiratory disease (1 source) Nodule of lung 08-16-2020 Episodic Other lower respiratory disease (20 sources) Cough; Translations: [Cough, unspecified] 12-26-2023 Episodic Other lower respiratory disease (13 sources) Solitary nodule of lung; Translations: [Solitary [...] Onset: 8 Chronic Other upper respiratory disease (4 sources) Change in voice; Translations: [Unspecified voice and resonance disorder] 06-16-2024 Episodic Other upper respiratory disease (3 sources) Unspecified voice and resonance disorder; Translations: [Other voice and resonance disorders] 06-16-2024 Episodic Other upper respiratory infections (3 sources) Chronic sinusitis; Translations: [Chronic sinusitis, unspecified] Chronic Other upper respiratory infections (20 sources) Acute maxillary sinusitis; Translations: [Acute maxillary sinusitis, unspecified] Episodic Phlebitis; thrombophlebitis and thromboembolism (11 sources) Phlebitis and thrombophlebitis of superficial vessels of right lower extremity; Translations: [Thrombophlebitis of superficial veins of lower extremity] Onset: 3 Episodic Pneumonia (except that caused by tuberculosis or sexually transmitted disease) (5 sources) Pneumonia; Translations: [Pneumonia, unspecified organism] 09-29-2024 Episodic Residual codes; unclassified (20 sources) Obstructive [...] Translations: [Tobacco use] Episodic Residual codes; unclassified (4 sources) Family history of Von Willebrand disease; [...] Test Name Value Interpretation Reference Range Facility Laboratory - Chemistry and C hemistry - challengeon 09-16-2024 Bilirubin Ql (U) Negative NEGATIVE [facility] Glucose (U) [Mass/Vol] Negative NEGATIVE [facility] Ketones Ql (U) Negative NEGATIVE [facility] pH (U) 6.0 [pH] 5.0-9.0 [facility] Specific gravity (U) [Rel density] 1.025 1.005-1.02 5 [facility] Urobilinogen Qn (U) 0.2 {Larissa'U}/dL 0.2-1.0 [facility] Laboratory - Microbiology an d Antimicrobial susceptibilityon 09-16-2024 S. pyogenes Ag Ql (Unsp spec) Negative [facility] SARS-CoV-2 (COVID-19) RNA ALEKSANDR+probe Ql (Unsp spec) Negative NEGATIVE [facility] Comment on above: This test has not be en FDA cleared or approved, but has beenauthorized by the FDA under an Emergency Use Authorization(EUA) for use by authorized laboratories certified underIA that meet the requirements to perform moderate or highcomplexity testing. This test has been authorized only forthe detection of proteins from SARS-CoV-2, not for any otherviruses or pathogens. The emergency use of this test isauthorized for the duration of the declaration thatcircumstances exist justifying the authorization ofemergency use of in vitro diagnostic tests for detectionand/or diagnosis of Covid-19 under section 564(b)(1) of theAct, 21 U.S.C. 360bbb-3(b)(1), unless the declaration isterminated or authorization is revoked sooner. Laboratory - Specimen inform ationon 09-16-2024 Appearance (U) CLEAR CLEAR [facility] Color (U) LT. YELLOW YELLOW [facility] Laboratory - Urinalysison Leukocyte esterase Test strip Ql (U) TRACE Abnormal NEGATIVE [facility] Mucus Ql (Urine sed) NONE SEEN NONE SEEN [facility] Nitrite Ql (U) Negative NEGATIVE [facility] Protein Ql (U) Negative NEG/TRACE [facility] No Panel Informationon 09-16 Bedside Influenza Type A Antigen Negative [facility] Comment on above: Negative for Flu A p rotein antigen. Infection due to Flu Acannot be ruled out. Flu A antigen in the sample may bebelow the detection limit of the test. Bedside Influenza Type B Antigen Negative [facility] Comment on above: Negative for Flu B p rotein antigen. Infection due to Flu Bcannot be ruled out. Flu B antigen in the sample may bebelow the detection limit of the test. Urine Bacteria NONE SEEN #/HPF NONE SEEN [facility] Urine Culture Reflexed NO [facility] Urine Microscopic Review YES [facility] Urine Occult Blood Negative NEGATIVE [facility] Urine Other Casts NONE SEEN #/LPF NONE SEEN [facility] Urine Other Crystals None Seen #/HPF None Seen [facility] Urine RBC 0-2 #/HPF 0-2 [facility] Urine Squamous Epithelial Cells RARE #/LPF NONE/RARE [facility] Urine WBC 0-2 #/HPF Abnormal NONE SEEN [facility] Basophils Auto (Bld) [#/Vol] on 09-11-2024 Basophils (Bld) [#/Vol] Automated basophil count 0.0-0.1 [facility] Basophils/100 WBC Auto (Bld) on 09-11-2024 Basophils/100 WBC (Bld) Automated basophil % 0.2-2.0 [facility] Eosinophils/100 WBC Auto (Bl d)on 09-11-2024 Eosinophils/100 WBC (Bld) Automated eosinophil % 0.9-7.0 [facility] Erythrocyte distribution wid th Auto (RBC) [Ratio]on 09-11-2024 Erythrocyte distribution width (RBC) [Ratio] Erythrocyte distribution width [Ratio] by Automated count High 11.0-15.0 [facility] Hematocrit Auto (Bld) [Volum e fraction]on 09-11-2024 Hematocrit (Bld) [Volume fraction] Hematocrit [Volume Fraction] of Blood by Automated count 36.0-48.0 [facility] Hemoglobin [Mass/volume] in Bloodon 09-11-2024 Hemoglobin (Bld) [Mass/Vol] Hemoglobin [Mass/volume] in Blood 12.0-16.0 [facility] Iron binding capacity [Mass/ volume] in Serum or Plasmaon 09-11-2024 Iron binding capacity [Mass/Vol] Iron binding capacity [Mass/volume] in Serum or Plasma 250.0-450. 0 [facility] Iron saturation [Mass Fracti on] in Serum or Plasmaon 09-11-2024 Iron saturation [Mass fraction] Iron saturation [Mass Fraction] in Serum or Plasma [facility] Laboratory - Chemistry and C hemistry - challengeon 09-11-2024 Ferritin [Mass/Vol] 124.0 ng/mL 8.0-252.0 [facility] Iron [Mass/Vol] 61.0 ug/dL 50.0-170.0 [facility] Laboratory - Hematology and Cell countson 09-11-2024 Immature granulocytes/100 WBC (Bld) 0.4 % 0.0-0.5 [facility] Leukocytes [#/volume] correc janell for nucleated erythrocytes in Blood by Automated counon 09-11-2024 WBC corrected for nucl RBC Auto (Bld) [#/Vol] Leukocytes [#/volume] corrected for nucleated erythrocytes in Blood by Automated coun 4.0-11.0 [facility] Lymphocytes Auto (Bld) [#/Vo l]on 09-11-2024 Lymphocytes (Bld) [#/Vol] Lymphocytes [#/volume] in Blood by Automated count 1.2-3.8 [facility] Lymphocytes/100 WBC Auto (Bl d)on 09-11-2024 Lymphocytes/100 WBC (Bld) Lymphocytes/100 leukocytes in Blood by Automated count 20.5-60.0 [facility] MCH Auto (RBC) [Entitic mass ]on 09-11-2024 MCH (RBC) [Entitic mass] MCH [Entitic mass] by Automated count Low 26.7-34.0 [facility] MCHC Auto (RBC) [Mass/Vol]on 09-11-2024 MCHC (RBC) [Mass/Vol] MCHC [Mass/volume] by Automated count 29.9-35.2 [facility] MCV Auto (RBC) [Entitic vol] on 09-11-2024 MCV (RBC) [Entitic vol] MCV [Entitic volume] by Automated count 81.0-99.0 [facility] Monocytes Auto (Bld) [#/Vol] on 09-11-2024 Monocytes (Bld) [#/Vol] Automated blood monocyte count 0.3-0.8 [facility] Monocytes/100 WBC Auto (Bld) on 09-11-2024 Monocytes/100 WBC (Bld) Automated monocyte % 1.7-12.0 [facility] Neutrophils Auto (Bld) [#/Vo l]on 09-11-2024 Neutrophils (Bld) [#/Vol] Neutrophils [#/volume] in Blood by Automated count 1.4-6.5 [facility] Neutrophils/100 WBC Auto (Bl d)on 09-11-2024 Neutrophils/100 WBC (Bld) Automated neutrophil % 43.0-75.0 [facility] No Panel Informationon 09-11 Eosinophils # (Auto) 0.1 10 3/uL 0.0-0.7 [facility] Immature Granulocyte # (Auto) 0.02 10 3/uL 0.00-0.03 [facility] Platelet mean volume Auto (B ld) [Entitic vol]on 09-11-2024 Platelet mean volume (Bld) [Entitic vol] Platelet mean volume [Entitic volume] in Blood by Automated count Low 9.5-13.5 [facility] Platelets Auto (Bld) [#/Vol] on 09-11-2024 Platelets (Bld) [#/Vol] Platelets [#/volume] in Blood by Automated count 150-450 [facility] RBC Auto (Bld) [#/Vol]on RBC (Bld) [#/Vol] Erythrocytes [#/volu me] in Blood by Automated count High 4.20-5.40 [facility] XR hip RT min 2V(w/wo pelvis )*on 08-27-2024 XR hip RT min 2V(w/wo pelvis)* [facility] [address] [place] [address] XRay Report Signed Patient: Nicol Smith MR#: [id number] 9 : 1960 Acct:[id number] Age/Sex: 64 / F ADM Date: 08/27/24 [place] [facility] [place]: Type: [facility] Attending Dr: David Mcfarland II, MD [...] Magdy Crooks M.D.08/27/2024 4:17 PM Dictation Location: [place] [address] Transcribed By: [facility] 08/27/241616 Dictated By: Magdy Crooks II, MD 08/27/241616 Signed By: 08/27/241616 Normal [facility] Office Visiton 07-25-2024 Follow-up visit [id number] Nicol Smith 1960 F Date Provider Department Center 07/25/2024 [facility] Family History Problem Relation Age of Onset Diabetes Father Heart failure Father Diabetes Paternal Grandmother Diabetes Paternal Grandfather Family Status - Relation Status Age at Father Paternal Grandmother Paternal Grandfather Level of Service:93583 [place] OFFICE/OUTPATIENT ESTABLISHED MOD MDM 30 MIN Normal [facility] Albumin [Mass/volume] in Ser um or Plasmaon 07-15-2024 Albumin [Mass/Vol] 3.7 g/dL 2.9-4.4 [facility] Albumin [Mass/Vol] Albumin [Mass/volume ] in Serum or Plasma 2.9-4.4 [facility] Basophils Auto (Bld) [#/Vol] on 07-15-2024 Basophils (Bld) [#/Vol] 0.1 10 3/uL 0.0-0.1 [facility] Basophils (Bld) [#/Vol] Automated basophil count 0.0-0.1 [facility] Basophils/100 WBC Auto (Bld) on 07-15-2024 Basophils/100 WBC (Bld) 1.5 % 0.2-2.0 [facility] Basophils/100 WBC (Bld) Automated basophil % 0.2-2.0 [facility] Eosinophils/100 WBC Auto (Bl d)on 07-15-2024 Eosinophils/100 WBC (Bld) 2.0 % 0.9-7.0 [facility] Eosinophils/100 WBC (Bld) Automated eosinophil % 0.9-7.0 [facility] Erythrocyte distribution wid th Auto (RBC) [Ratio]on 07-15-2024 Erythrocyte distribution width (RBC) [Ratio] 22.6 % High 11.-15. [facility] Erythrocyte distribution width (RBC) [Ratio] Erythrocyte distribution width [Ratio] by Automated count High 11.-15. [facility] Estimated glomerular filtrat ion rate (GFR) non- Americanon 07-15-2024 GFR/1.73 sq M.predicted among non-blacks MDRD (S/P/Bld) [Vol rate/Area] 59 mL/min/{1.73_m2} Low >=60 mL/min/1.7 3m 2 [facility] GFR/1.73 sq M.predicted among non-blacks MDRD (S/P/Bld) [Vol rate/Area] Estimated glomerular filtration rate (GFR) non- Low >=60 mL/min/1.7 3m 2 [facility] Globulin Calc (S) [Mass/Vol] on 07-15-2024 Globulin (S) [Mass/Vol] 3.9 g/dL [facility] Globulin (S) [Mass/Vol] Serum globulin measurement by calculation (mass/volume) [facility] Hematocrit Auto (Bld) [Volum e fraction]on 07-15-2024 Hematocrit (Bld) [Volume fraction] 38.2 % 36.0-48.0 [facility] Hematocrit (Bld) [Volume fraction] Hematocrit [Volume Fraction] of Blood by Automated count 36.0-48.0 [facility] Hemoglobin [Mass/volume] in Bloodon 07-15-2024 Hemoglobin (Bld) [Mass/Vol] 11.2 g/dL Low 12.0-16.0 [facility] Hemoglobin (Bld) [Mass/Vol] Hemoglobin [Mass/volume] in Blood Low 12.0-16.0 [facility] IgA [Mass/volume] in Serum o r Plasmaon 07-15-2024 IgA [Mass/Vol] 117 mg/dL 87-352 [facility] IgA [Mass/Vol] IgA [Mass/volume] in Serum or Plasma 87-352 [facility] IgG [Mass/volume] in Serum o r Plasmaon 07-15-2024 IgG [Mass/Vol] 938 mg/dL 586-1602 [facility] IgG [Mass/Vol] IgG [Mass/volume] in Serum or Plasma 586-1602 [facility] IgM [Mass/volume] in Serum o r Plasmaon 07-15-2024 IgM [Mass/Vol] 43 mg/dL 26-217 [facility] IgM [Mass/Vol] IgM [Mass/volume] in Serum or Plasma 217 [facility] Iron binding capacity [Mass/ volume] in Serum or Plasmaon 07-15-2024 Iron binding capacity [Mass/Vol] 457.0 ug/dL High 250.0-450. 0 [facility] Iron binding capacity [Mass/Vol] Iron binding capacity [Mass/volume] in Serum or Plasma High 250.0-450. 0 [facility] Iron saturation [Mass Fracti on] in Serum or Plasmaon 07-15-2024 Iron saturation [Mass fraction] 3.7 % [facility] Iron saturation [Mass fraction] Iron saturation [Mass Fraction] in Serum or Plasma [facility] Laboratory - Chemistry and C hemistry - challengeon 07-15-2024 Albumin [Mass/Vol] 3.6 g/dL 3.4-5.0 [facility] ALP [Catalytic activity/Vol] 129 U/L High 46-116 [facility] ALT [Catalytic activity/Vol] 28 U/L 14-59 [facility] AST [Catalytic activity/Vol] 16 U/L 15-37 [facility] Bilirubin [Mass/Vol] 0.3 mg/dL 0.2-1.0 [facility] Calcium [Mass/Vol] 9.4 mg/dL 8.5-10.1 [facility] Chloride [Moles/Vol] 107 mmol/L 98-107 [facility] CO2 [Moles/Vol] 23.5 mmol/L 21.0-32.0 [facility] Cobalamin (Vitamin B12) [Mass/Vol] 619 pg/mL 232-1245 [facility] Comment on above: Performed at: - [address] [id number] Director: Luis Mukherjee PhD, Phone: [phone] Creatinine [Mass/Vol] 0.96 mg/dL 0.55-1.02 [facility] Ferritin [Mass/Vol] 22.0 ng/mL 8.0-252.0 [facility] GFR/1.73 sq M.predicted MDRD (S/P/Bld) [Vol rate/Area] mL/min/{1.73_m2} >=60 mL/min/1.7 3m 2 [facility] Glucose [Mass/Vol] 170 mg/dL High 74-106 [facility] Iron [Mass/Vol] 17.0 ug/dL Low 50.0-170.0 [facility] LDH [Catalytic activity/Vol] 205 U/L 81-234 [facility] Potassium [Moles/Vol] 4.0 mmol/L 3.5-5.1 [facility] Protein [Mass/Vol] 0.2 g/dL Abnormal Not Observed [facility] Protein [Mass/Vol] 7.5 g/dL 6.4-8.2 [facility] Sodium [Moles/Vol] 143 mmol/L 136-145 [facility] Urea nitrogen [Mass/Vol] 18.0 mg/dL 7.0-18.0 [facility] Urea nitrogen/Creatinine [Mass ratio] 18.8 mg/mg [facility] Laboratory - Hematology and Cell countson 07-15-2024 ESR (Bld) [Velocity] 62 mm/h High <=30 [facility] Immature granulocytes/100 WBC (Bld) 0.2 % 0.0-0.5 [facility] Leukocytes [#/volume] correc janell for nucleated erythrocytes in Blood by Automated counon 07-15-2024 WBC corrected for nucl RBC Auto (Bld) [#/Vol] 5.5 10 3/uL 4.0-11.0 [facility] WBC corrected for nucl RBC Auto (Bld) [#/Vol] Leukocytes [#/volume] corrected for nucleated erythrocytes in Blood by Automated coun 4.0-11.0 [facility] Lymphocytes Auto (Bld) [#/Vo l]on 07-15-2024 Lymphocytes (Bld) [#/Vol] 1.6 10 3/uL 1.2-3.8 [facility] Lymphocytes (Bld) [#/Vol] Lymphocytes [#/volume] in Blood by Automated count 1.2-3.8 [facility] Lymphocytes/100 WBC Auto (Bl d)on 07-15-2024 Lymphocytes/100 WBC (Bld) 28.8 % 20.5-60.0 [facility] Lymphocytes/100 WBC (Bld) Lymphocytes/100 leukocytes in Blood by Automated count 20.5-60.0 [facility] MCH Auto (RBC) [Entitic mass ]on 07-15-2024 MCH (RBC) [Entitic mass] 22.7 pg Low 26.7-34.0 [facility] MCH (RBC) [Entitic mass] MCH [Entitic mass] by Automated count Low 26.7-34.0 [facility] MCHC Auto (RBC) [Mass/Vol]on 07-15-2024 MCHC (RBC) [Mass/Vol] 29.3 g/dL Low 29.9-35.2 [facility] MCHC (RBC) [Mass/Vol] MCHC [Mass/volume] by Automated count Low 29.9-35.2 [facility] MCV Auto (RBC) [Entitic vol] on 07-15-2024 MCV (RBC) [Entitic vol] 77.5 fL Low 81.0-99.0 [facility] MCV (RBC) [Entitic vol] MCV [Entitic volume] by Automated count Low 81.0-99.0 [facility] Monocytes Auto (Bld) [#/Vol] on 07-15-2024 Monocytes (Bld) [#/Vol] 0.3 10 3/uL 0.3-0.8 [facility] Monocytes (Bld) [#/Vol] Automated blood monocyte count 0.3-0.8 [facility] Monocytes/100 WBC Auto (Bld) on 07-15-2024 Monocytes/100 WBC (Bld) 5.9 % 1.7-12.0 [facility] Monocytes/100 WBC (Bld) Automated monocyte % 1.7-12.0 [facility] Neutrophils Auto (Bld) [#/Vo l]on 07-15-2024 Neutrophils (Bld) [#/Vol] 3.4 10 3/uL 1.4-6.5 [facility] Neutrophils (Bld) [#/Vol] Neutrophils [#/volume] in Blood by Automated count 1.4-6.5 [facility] Neutrophils/100 WBC Auto (Bl d)on 07-15-2024 Neutrophils/100 WBC (Bld) 61.6 % 43.0-75.0 [facility] Neutrophils/100 WBC (Bld) Automated neutrophil % 43.0-75.0 [facility] No Panel Informationon 07-15 C-Reactive Protein, Quantitative <0.50 mg/dL <=0.50 [facility] Eosinophils # (Auto) 0.1 10 3/uL 0.0-0.7 [facility] Folate 18.00 ng/mL 8.60-58.90 [facility] Immature Granulocyte # (Auto) 0.01 10 3/uL 0.00-0.03 [facility] Protein Electrophoresis Note Comment . [facility] Comment on above: Protein electrophore sis scan will follow via computer,mail, or rug inspector helper delivery.Performed at: [address] [id number] Director: Luis Mukherjee PhD, Phone: [phone] Platelet mean volume Auto (B ld) [Entitic vol]on 07-15-2024 Platelet mean volume (Bld) [Entitic vol] 9.5 fL 9.5-13.5 [facility] Platelet mean volume (Bld) [Entitic vol] Platelet mean volume [Entitic volume] in Blood by Automated count 9.5-13.5 [facility] Platelets Auto (Bld) [#/Vol] on 07-15-2024 Platelets (Bld) [#/Vol] 412 10 3/uL 150-450 [facility] Platelets (Bld) [#/Vol] Platelets [#/volume] in Blood by Automated count 150-450 [facility] Protein [Mass/volume] in Ser um or Plasmaon 07-15-2024 Protein [Mass/Vol] 7.0 g/dL 6.0-8.5 [facility] Protein [Mass/Vol] Protein [Mass/volume ] in Serum or Plasma 6.0-8.5 [facility] RBC Auto (Bld) [#/Vol]on RBC (Bld) [#/Vol] 4.93 10 6/uL 4.20-5.40 [facility] Comment on above: ANISOCYTOSIS 1+ RBC (Bld) [#/Vol] Erythrocytes [#/volu me] in Blood by Automated count 4.20-5.40 [facility] Comment on above: ANISOCYTOSIS 1+ Reticulocytes/100 RBC Auto ( Bld)on 07-15-2024 Reticulocytes/100 RBC (Bld) 2.69 % 0.60-3.10 [facility] Reticulocytes/100 RBC (Bld) Reticulocyte % auto 0.60-3.10 [facility] Serum globulin measurement ( mass/volume)on 07-15-2024 Globulin (S) [Mass/Vol] 3.3 g/dL 2.2-3.9 [facility] Globulin (S) [Mass/Vol] Serum globulin measurement (mass/volume) 2.2-3.9 [facility] Serum or plasma albumin/glob ulin mass ratioon 07-15-2024 Albumin/Globulin [Mass ratio] 0.9 {ratio} [facility] Albumin/Globulin [Mass ratio] 1.2 {ratio} 0.7-1.7 [facility] Albumin/Globulin [Mass ratio] Serum or plasma albumin/globulin mass ratio 0.7-1.7 [facility] Serum or plasma alpha 1 glob ulin measurement by electrophoresis (mass/volume)on 07-15-2024 Alpha 1 globulin Elph [Mass/Vol] 0.3 g/dL 0.0-0.4 [facility] Alpha 1 globulin Elph [Mass/Vol] Serum or plasma alpha 1 globulin measurement by electrophoresis (mass/volume) 0.0-0.4 [facility] Serum or plasma alpha 2 glob ulin measurement by electrophoresis (mass/volume)on 07-15-2024 Alpha 2 globulin Elph [Mass/Vol] 0.9 g/dL 0.4-1.0 [facility] Alpha 2 globulin Elph [Mass/Vol] Serum or plasma alpha 2 globulin measurement by electrophoresis (mass/volume) 0.4-1.0 [facility] Serum or plasma anion gap de terminationon 07-15-2024 Anion gap [Moles/Vol] 16.5 [facility] Anion gap [Moles/Vol] Serum or plasma an ion gap determination [facility] Serum or plasma beta globuli n measurement by electrophoresis (mass/volume)on 07-15-2024 Beta globulin Elph [Mass/Vol] 1.1 g/dL 0.7-1.3 [facility] Beta globulin Elph [Mass/Vol] Serum or plasma beta globulin measurement by electrophoresis (mass/volume) 0.7-1.3 [facility] Serum or plasma gamma globul in measurement by electrophoresis (mass/volume)on 07-15-2024 Gamma globulin Elph [Mass/Vol] 0.9 g/dL 0.4-1.8 [facility] Gamma globulin Elph [Mass/Vol] Serum or plasma gamma globulin measurement by electrophoresis (mass/volume) 0.4-1.8 [facility] Serum or plasma immunoelectr ophoresis interpretationon 07-15-2024 Interpretation IEP [Interp] Comment Abnormal . [facility] Comment on above: Immunofixation shows IgG monoclonal protein with lambdalight chain specificity. Interpretation IEP [Interp] Serum or plasma immunoelectrophoresis interpretation Abnormal . [facility] Comment on above: Immunofixation shows IgG monoclonal protein with lambdalight chain specificity. Activated partial thrombopla stin time (aPTT) in platelet poor plasma by coagulation aon 06-17-2024 aPTT Coag (PPP) [Time] 26.5 s 22.3-36.2 [facility] Basophils Auto (Bld) [#/Vol] on 06-17-2024 Basophils (Bld) [#/Vol] 0.1 10 3/uL 0.0-0.1 [facility] Basophils/100 WBC Auto (Bld) on 06-17-2024 Basophils/100 WBC (Bld) 1.4 % 0.2-2.0 [facility] Cholesterol in LDL Calc [Mas s/Vol]on 06-17-2024 Cholesterol in LDL [Mass/Vol] 72.0 mg/dL [facility] Comment on above: <100 mg/dl [id number] 0-129 mg/dl NEAR OR ABOVE [id number] mg/dl BORDERLINE HQOW883-419 mg/dl HIGH>190 mg/dl VERY HIGH Cholesterol in VLDL Calc [Ma ss/Vol]on 06-17-2024 Cholesterol in VLDL [Mass/Vol] 33.4 mg/dL [facility] Eosinophils/100 WBC Auto (Bl d)on 06-17-2024 Eosinophils/100 WBC (Bld) 1.8 % 0.9-7.0 [facility] Erythrocyte distribution wid th Auto (RBC) [Ratio]on 06-17-2024 Erythrocyte distribution width (RBC) [Ratio] 17.7 % High 11.0-15.0 [facility] Hematocrit Auto (Bld) [Volum e fraction]on 06-17-2024 Hematocrit (Bld) [Volume fraction] 33.7 % Low 36.0-48.0 [facility] Hemoglobin [Mass/volume] in Bloodon 06-17-2024 Hemoglobin (Bld) [Mass/Vol] 9.8 g/dL Low 12.0-16.0 [facility] INR in Platelet poor plasma by Coagulation assayon 06-17-2024 INR Coag (PPP) [Relative time] 0.95 {INR} [facility] Comment on above: DESIRED INR:2.0-3.0 CONDITIONS NOT LISTED BELOW2.5-3.5 FOR PROSTHETIC HEART VALVE REPLACEMENT2.5-3.5 RECURRENT THROMBOSIS Laboratory - Chemistry and C hemistry - challengeon 06-17-2024 Cholesterol [Mass/Vol] 171 mg/dL <=200 [facility] Cholesterol in HDL [Mass/Vol] 66 mg/dL High 40-60 [facility] Comment on above: > or =60 mg/dl - LOW CARDIOVASCULAR RISK<40 mg/dl - HIGH CARDIOVASCULAR RISK Free T4 [Mass/Vol] 0.78 ng/dL 0.76-1.46 [facility] Triglyceride [Mass/Vol] 167 mg/dL High <=150 [facility] TSH Qn 6.061 m[IU]/L High 0.358-3.74 0 [facility] Laboratory - Hematology and Cell countson 06-17-2024 Immature granulocytes/100 WBC (Bld) 0.0 % 0.0-0.5 [facility] Leukocytes [#/volume] correc janell for nucleated erythrocytes in Blood by Automated counon 06-17-2024 WBC corrected for nucl RBC Auto (Bld) [#/Vol] 5.0 10 3/uL 4.0-11.0 [facility] Lymphocytes Auto (Bld) [#/Vo l]on 06-17-2024 Lymphocytes (Bld) [#/Vol] 1.9 10 3/uL 1.2-3.8 [facility] Lymphocytes/100 WBC Auto (Bl d)on 06-17-2024 Lymphocytes/100 WBC (Bld) 37.1 % 20.5-60.0 [facility] MCH Auto (RBC) [Entitic mass ]on 06-17-2024 MCH (RBC) [Entitic mass] 21.5 pg Low 26.7-34.0 [facility] MCHC Auto (RBC) [Mass/Vol]on 06-17-2024 MCHC (RBC) [Mass/Vol] 29.1 g/dL Low 29.9-35.2 [facility] MCV Auto (RBC) [Entitic vol] on 06-17-2024 MCV (RBC) [Entitic vol] 74.1 fL Low 81.0-99.0 [facility] Monocytes Auto (Bld) [#/Vol] on 06-17-2024 Monocytes (Bld) [#/Vol] 0.4 10 3/uL 0.3-0.8 [facility] Monocytes/100 WBC Auto (Bld) on 06-17-2024 Monocytes/100 WBC (Bld) 8.0 % 1.7-12.0 [facility] Neutrophils Auto (Bld) [#/Vo l]on 06-17-2024 Neutrophils (Bld) [#/Vol] 2.6 10 3/uL 1.4-6.5 [facility] Neutrophils/100 WBC Auto (Bl d)on 06-17-2024 Neutrophils/100 WBC (Bld) 51.7 % 43.0-75.0 [facility] No Panel Informationon 06-17 Eosinophils # (Auto) 0.1 10 3/uL 0.0-0.7 [facility] Immature Granulocyte # (Auto) 0.00 10 3/uL 0.00-0.03 [facility] Platelet mean volume Auto (B ld) [Entitic vol]on 06-17-2024 Platelet mean volume (Bld) [Entitic vol] 9.2 fL Low 9.5-13.5 [facility] Platelets Auto (Bld) [#/Vol] on 06-17-2024 Platelets (Bld) [#/Vol] 400 10 3/uL 150-450 [facility] Prothrombin time (PT)on 06-01 PT Coag (PPP) [Time] 10.1 s 9.0-11.6 [facility] RBC Auto (Bld) [#/Vol]on RBC (Bld) [#/Vol] 4.55 10 6/uL 4.20-5.40 [facility] Serum or plasma total choles terol/high density lipoprotein (HDL) cholesterol mass bridget 06-17-2024 Cholesterol.total/Chol esterol in HDL [Mass ratio] 2.6 {ratio} [facility] Comment on above: 3.3 - 4.4 LOW RISK4. 4 - 7.1 AVERAGE RISK7.1 - 11.0 MODERATE RISK>11.0 HIGH RISK Estimated glomerular filtrat ion rate (GFR) non- Americanon 01-11-2024 GFR/1.73 sq M.predicted among non-blacks MDRD (S/P/Bld) [Vol rate/Area] mL/min/{1.73_m2} >=60 [facility] Laboratory - Chemistry and C hemistry - challengeon 01-11-2024 Creatinine [Mass/Vol] 0.85 mg/dL 0.55-1.02 [facility] GFR/1.73 sq M.predicted MDRD (S/P/Bld) [Vol rate/Area] mL/min/{1.73_m2} >=60 [facility] XR hip RT min 2V(w/wo pelvis )*on 11-28-2023 XR hip RT min 2V(w/wo pelvis)* [facility] Main [address] [address] XRay Report Signed Patient: Nicol Smith MR#: [id number] 9 : 1960 Acct:[id number] Age/Sex: 63 / F ADM Date: 11/28/23 [place] [facility]: Type: [facility] Attending Dr: David Mcfarland II, MD [...] Matamoros Jr., D.OMiguel11/28/2023 1:06 PM Dictation Location: [place] [address] Transcribed By: [facility] 11/28/23 1306 Dictated By: Stalin Matamoros Jr, DO 11/28/23 1305 Signed By: 11/28/23 1306 Normal [facility] XR hip RT min 2V(w/wo pelvis )*on 10-17-2023 XR hip RT min 2V(w/wo pelvis)* [facility] Main [address] [address] XRay Report Signed Patient: Nicol Smith MR#: [id number] 9 : 1960 Acct:[id number] Age/Sex: 63 / F ADM Date: 10/17/23 [place] [facility] [place]: Type: [facility] Attending Dr: David Mcfarland II, MD [...] Kane Katz M.D.10/17/2023 3:39 PM Dictation Location: [facility] Transcribed By: [facility] 10/17/23 1539 Dictated By: Kane Katz DO 10/17/23 1538 Signed By: 10/17/23 1539 Normal [facility] XR hip RT min 2V(w/wo pelvis)* [facility] [employer] Other XR hip RT min 2V(w/wo pelvis)* [facility] Main [facility] [employer] Other XR hip RT min 2V(w/wo pelvis)* [address] [place] [address] [employer] Other XR hip RT min 2V(w/wo pelvis)* [place] [address] [employer] Other XR hip RT min 2V(w/wo pelvis)* XRay Report [employer] Other XR hip RT min 2V(w/wo pelvis)* Signed [employer] Other XR hip RT min 2V(w/wo pelvis)* Patient: Nicol Smith MR#: [id number] [employer] Other XR hip RT min 2V(w/wo pelvis)* 9 [employer] Other XR hip RT min 2V(w/wo pelvis)* : 1960 Acct:[id number] [employer] Other XR hip RT min 2V(w/wo pelvis)* Age/Sex: 63 / F ADM Date: 10/17/23 [employer] Other XR hip RT min 2V(w/wo pelvis)* [place] [facility] [place]: Type[place] [facility] [employer] Other XR hip RT min 2V(w/wo pelvis)* Attending Dr: David Mcfarland II, MD [employer] Other XR hip RT min 2V(w/wo pelvis)* Copies to: David Mcfarland MD [employer] Other XR hip RT min 2V(w/wo pelvis)* Ordering Provider: David Mcfarland MD [employer] Other XR hip RT min 2V(w/wo pelvis)* Date of Service: 10/17/23 [employer] Other XR hip RT min 2V(w/wo pelvis)* XR/XR hip RT min 2V(w/wo pelvis)*: Aftercare following joint replacement [employer] Other XR hip RT min 2V(w/wo pelvis)* surgery;Presence of ri [employer] Other XR hip RT min 2V(w/wo pelvis)* 2 views right hip with single view pelvis plain film [employer] Other XR hip RT min 2V(w/wo pelvis)* COMPARISON: 09/03/2023 [employer] Other XR hip RT min 2V(w/wo pelvis)* HISTORY: Status post right total hip arthroplasty [employer] Other XR hip RT min 2V(w/wo pelvis)* ACUTE FINDINGS: None [employer] Other XR hip RT min 2V(w/wo pelvis)* DEGENERATIVE CHANGE: Unremarkable [employer] Other XR hip RT min 2V(w/wo pelvis)* SOFT TISSUE FINDINGS: Unremarkable [employer] Other XR hip RT min 2V(w/wo pelvis)* JOINT EFFUSION: None [employer] Other XR hip RT min 2V(w/wo pelvis)* POSTOP CHANGES: Stable bilateral hip arthroplasties. [employer] Other XR hip RT min 2V(w/wo pelvis)* BONY MINERALIZATION: Adequate [employer] Other XR hip RT min 2V(w/wo pelvis)* XR/XR hip RT min 2V(w/wo pelvis)* [employer] Other XR hip RT min 2V(w/wo pelvis)* IMPRESSION: Stable right hip arthroplasty. [employer] Other XR hip RT min 2V(w/wo pelvis)* Impression dictated by: Kane Katz M.D.10/17/2023 3:39 PM [employer] Other XR hip RT min 2V(w/wo pelvis)* Dictation Location: [place] [address] [employer] Other XR hip RT min 2V(w/wo pelvis)* Transcribed By: SILVIA 10/17/23 1539 [employer] Other XR hip RT min 2V(w/wo pelvis)* Dictated By: Kane Katz DO 10/17/23 1538 [employer] Other XR hip RT min 2V(w/wo pelvis)* Signed By: [employer] Other XR hip RT min 2V(w/wo pelvis)* 10/17/23 1530 [employer] Other ABO/Rh Retypeon 09-03-2023 ABO/RH Recheck Result Positive Normal [facility] Comment on above: Result Comment: PERF ORMED BY: [facility] DARSHAN REINOSO [id number] PATHOLOGIST [address] Killian 09-03-2023 L ----- Specimen: [id number] Received: 09/03/23 Status: GRACIELA Dominguez Num: [id number] Spec Type: Surgical Subm Dr: David Mcfarland MD Tissues: A Femoral Head - Other than Fracture (RT HIP) Procedures: HE/2, Gross/Micro L3, Decalcification Age/ Patient Sex Location Account Attending Physician Nicol Smith 63/F [place] [id number] David Mcfarland MD SPEC NUM: [id number] RECD: 09/03/23 STATUS: GRACIELA KATHY NUM: [id number] SABRINA: 09/03/23 [facility] DR: David Mcfarland MD ENTERED: 09/03/[address] [facility] [address]: SPEC TYPE: Surgical DEPT: S ORDERED: [...] is taken. Gross examination only. CPT Codes 67048 Specimen: [id number] Received: 09/03/23 Status: GRACIELA Kathy Num: [id number] Spec Type: Surgical Subm Dr: David cMfarland MD Tissues: A Femoral Head - Other than Fracture (RT HIP) Procedures: HE/2, Gross/Micro L3, Decalcification Patient: RomeoNicol Gonsales [id number] (Continued) Specimen: [id number] Received: 09/03/23 (Continued) Signed (signature on file) Dez Núñez MD 09/07/23 1345 Specimen: [id number] Received: 09/03/23 Status: GRACIELA Dominguez Num: [id number] Spec Type: Surgical Subm Dr: David Mcfarland MD Tissues: A Femoral Head - Other than Fracture (RT HIP) Procedures: SID Gross/Micro L3, Decalcification Patient: Nicol Smtih [id number] (Continued) Specimen: [id number] Received: 09/03/23 (Continued) Gross Photo Specimen: [id number] Received: 09/03/23 Status: GRACIELA Dominguez Num: [id number] Spec Type: Surgical Subm Dr: David Mcfarland MD Tissues: A Femoral Head - Other than Fracture (RT HIP) Procedures: HE/2, Gross/Micro L3, Decalcification Patient: Nicol Smith [id number] (Continued) Signed (signature on file) Dez Núñez MD 09/07/23 1345 Normal [facility] XR low pelvis w/RT x-table h ipon 09-03-2023 XR low pelvis w/RT x-table hip [facility] [place] [place] [address] XRay Report Signed Patient: Nicol Smith MR#: [id number] 9 : 1960 Acct:[id number] Age/Sex: 63 / F ADM Date: 09/03/23 Loc: [place] Room: Type: [facility] Attending Dr: David Mcfarland II, MD Copies to: David Mcfarland MD Ordering Provider: David Mcfarland MD Date of Service: 09/03/23 XR/XR low pelvis w/RT x-table hip: Total Hip, due in PACU ([id number]) XR/XR hip RT 1V: ANTERIOR HIP IN [...] Anna Hull M.D.09/03/2023 11:53 AM Dictation Location: [place] [address] Transcribed By: SILVIA 09/03/23 1153 Dictated By: Anna Hull MD 09/03/23 1150 Signed By: 09/03/23 1153 Normal [facility] Automated erythrocytes count in urine sediment (number/area)Ordered By: David Mcfarland on 08-28-2023 RBC Auto (Urine sed) [#/Area] 1-2 [HPF] 0-4 [facility] Automated leukocytes count i n urine sediment (number/area)Ordered By: David Mcfarland on 08-28-2023 WBC Auto (Urine sed) [#/Area] 10-19 [HPF] 0-4 [facility] Basophils Auto (Bld) [#/Vol] Ordered By: David Mcfarland on 08-28-2023 Basophils (Bld) [#/Vol] 0.1 10*3/uL 0.0-0.2 [facility] Basophils/100 WBC Auto (Bld) Ordered By: David Mcfarland on 08-28-2023 Basophils/100 WBC (Bld) 1.1 % . [facility] Bilirubin Test strip Ql (U)O rdered By: David Mcfarland on 08-28-2023 Bilirubin Ql (U) Negative Negative [facility] Calcium [Mass/volume] in Ser um or PlasmaOrdered By: David Mcfarland on 08-28-2023 Calcium [Mass/Vol] 9.7 mg/dL 8.6-10.3 [facility] Carbon dioxide, total [Moles /volume] in Serum or PlasmaOrdered By: David Mcfarland on 08-28-2023 CO2 [Moles/Vol] 26.1 mmol/L 21.0-31.0 [facility] Chloride [Moles/volume] in S adela or PlasmaOrdered By: David Mcfarland on 08-28-2023 Chloride [Moles/Vol] 107 mmol/L 98-107 [facility] Color Auto (U)Ordered By: Arleth Mcfarland on 08-28-2023 Color (U) Yellow Yellow [facility] Creatinine [Mass/volume] in Serum or PlasmaOrdered By: David Mcfarland on 08-28-2023 Creatinine [Mass/Vol] 0.96 mg/dL 0.60-1.20 [facility] Eosinophils Auto (Bld) [#/Vo l]Ordered By: David Mcfarland on 08-28-2023 Eosinophils (Bld) [#/Vol] 0.1 10*3/uL 0.0-0.45 [facility] Eosinophils/100 WBC Auto (Bl d)Ordered By: David Mcfarland on 08-28-2023 Eosinophils/100 WBC (Bld) 1.0 % . [facility] Erythrocyte distribution wid th Auto (RBC) [Ratio]Ordered By: David Mcfarland on 08-28-2023 Erythrocyte distribution width (RBC) [Ratio] 17.5 % 11.9-15.3 [facility] Fructosamine [Moles/volume] in Serum or PlasmaOrdered By: David Mcfarland on 08-28-2023 Fructosamine [Moles/Vol] 205 umol/L 0-285 [facility] Comment on above: Published reference interval for apparently healthysubjects between age 20 and 60 is 205 - 285 umol/L and in apoorly controlled diabetic population is 228 - 563 umol/Lwith a mean of 396 umol/L.Performed at: [facility] [id number] Director: Luis Mukherjee PhD, Phone: [phone] Glucose [Mass/volume] in Ser um or PlasmaOrdered By: David Mcfarland on 08-28-2023 Glucose [Mass/Vol] 98 mg/dL 70-100 [facility] Comment on above: ADA recommended refe rence rangeRandom Glucose Reference Range is dependent on time and content of last meal. Glucose of more than 200 mg/dL in a nonstressed, ambulatory subject supports the diagnosis of Diabetes Mellitus. Hematocrit Auto (Bld) [Volum e fraction]Ordered By: David Mcfarland on 08-28-2023 Hematocrit (Bld) [Volume fraction] 36.9 % 34.0-46.4 [facility] Hemoglobin [Mass/volume] in BloodOrdered By: David Mcfarland on 08-28-2023 Hemoglobin (Bld) [Mass/Vol] 11.9 g/dL 11.8-15.4 [facility] Ketones Auto test strip (U) [Mass/Vol]Ordered By: David Mcfarland on 08-28-2023 Ketones (U) [Mass/Vol] Negative Negative Fi [facility] Laboratory - UrinalysisOrder ed By: David Mcfarland on 08-28-2023 Hyaline casts LM Ql (Urine sed) 0-8 [LPF] 0-8 [facility] Leukocytes [#/volume] correc janell for nucleated erythrocytes in Blood by Automated counOrdered By: David Mcfarland on 08-28-2023 WBC corrected for nucl RBC Auto (Bld) [#/Vol] 6.4 10*3/uL 3.8-11.6 [facility] Lymphocytes Auto (Bld) [#/Vo l]Ordered By: David Mcfarland on 08-28-2023 Lymphocytes (Bld) [#/Vol] 1.6 10*3/uL 1.00-4.8 [facility] Lymphocytes/100 WBC Auto (Bl d)Ordered By: David Mcfarland on 08-28-2023 Lymphocytes/100 WBC (Bld) 25.3 % . [facility] MCH Auto (RBC) [Entitic mass ]Ordered By: David Mcfarland on 08-28-2023 MCH (RBC) [Entitic mass] 25.0 pg 24.7-34.3 [facility] MCHC Auto (RBC) [Mass/Vol]Or dered By: David Mcfarland on 08-28-2023 MCHC (RBC) [Mass/Vol] 32.1 g/dL 32.0-35.0 [facility] MCV Auto (RBC) [Entitic vol] Ordered By: David Mcfarland on 08-28-2023 MCV (RBC) [Entitic vol] 78.0 fL 80-100 [facility] Monocytes Auto (Bld) [#/Vol] Ordered By: David Mcfarland on 08-28-2023 Monocytes (Bld) [#/Vol] 0.5 10*3/uL 0.0-0.8 [facility] Monocytes/100 WBC Auto (Bld) Ordered By: David Mcfarland on 08-28-2023 Monocytes/100 WBC (Bld) 7.6 % . [facility] Neutrophils Auto (Bld) [#/Vo l]Ordered By: David Mcfarland on 08-28-2023 Neutrophils (Bld) [#/Vol] 4.2 10*3/uL 1.8-7.7 [facility] Neutrophils/100 WBC Auto (Bl d)Ordered By: David Mcfarland on 08-28-2023 Neutrophils/100 WBC (Bld) 65.0 % . [facility] Nitrite Test strip Ql (U)Ord ered By: David Mcfarland on 08-28-2023 Nitrite Ql (U) Negative Negative [facility] No Panel InformationOrdered By: David Mcfarland on 08-28-2023 Estimated GFR (CKD-EPI) > 60.0 mL/Min [facility] Creatinine Clearance (Chem N/A [facility] Nucleated erythrocytes [Pres ence] in Blood by Automated countOrdered By: David Mcfarland on 08-28-2023 Nucleated RBC Auto Ql (Bld) 0.1 /100{WBC} 0-0.5 [facility] Platelet mean volume Auto (B ld) [Entitic vol]Ordered By: David Mcfarland on 08-28-2023 Platelet mean volume (Bld) [Entitic vol] 8.0 fL 6.3-10.7 [facility] Platelets Auto (Bld) [#/Vol] Ordered By: David Mcfarland on 08-28-2023 Platelets (Bld) [#/Vol] 387 10*3/uL 150-450 [facility] Potassium [Moles/volume] in Serum or PlasmaOrdered By: David Mcfarland on 08-28-2023 Potassium [Moles/Vol] 4.2 mmol/L 3.5-5.1 [facility] Protein Auto test strip (U) [Mass/Vol]Ordered By: David Mcfarland on 08-28-2023 Protein (U) [Mass/Vol] Negative Negative [facility] RBC Auto (Bld) [#/Vol]Ordere d By: David Mcfarland on 08-28-2023 RBC (Bld) [#/Vol] 4.74 10*6/uL 3.60-5.00 [facility] Serum or plasma anion gap de terminationOrdered By: David Mcfarland on 08-28-2023 Anion gap [Moles/Vol] 11.1 mmol/L 6.0-15.0 [facility] Sodium [Moles/volume] in Ser um or PlasmaOrdered By: David Mcfarland on 08-28-2023 Sodium [Moles/Vol] 140 mmol/L 136-145 [facility] Specific gravity Auto test s trip (U) [Rel density]Ordered By: David Mcfarland on 08-28-2023 Specific gravity (U) [Rel density] 1.020 1.001-1.03 0 [facility] Squamous epithelial cells de tection in urine sediment by light microscopyOrdered By: David Mcfarland on 08-28-2023 Epithelial cells.squamous LM Ql (Urine sed) 3-4 [HPF] 0-2 [facility] Urea nitrogen [Mass/volume] in Serum or PlasmaOrdered By: David Mcfarland on 08-28-2023 Urea nitrogen [Mass/Vol] 17 mg/dL 7-25 [facility] Urine bacteria detection by automated methodOrdered By: David Mcfarland on 08-28-2023 Bacteria Auto Ql (U) None seen None Seen [facility] Urine clarity by refractomet ry automatedOrdered By: David Mcfarland on 08-28-2023 Clarity Refractometry automated (U) Clear Clear [facility] Urine culture routineOrdered By: David Mcfarland on 08-28-2023 Bacteria identified Cx Nom (U) 2 Days [facility] Urine glucose measurement by automated test strip (mass/volume)Ordered By: David Mcfarland on 08-28-2023 Glucose Auto test strip (U) [Mass/Vol] Normal mg/dL Normal [facility] Urine hemoglobin detection b y automated test stripOrdered By: David Mcfarland on 08-28-2023 Hemoglobin Auto test strip Ql (U) Negative Negative [facility] Urine leukocyte esterase det ection by automated test stripOrdered By: David Mcfarland on 08-28-2023 Leukocyte esterase Auto test strip Ql (U) 3+ Negative [facility] Urobilinogen Auto test strip (U) [Mass/Vol]Ordered By: David Mcfarland on 08-28-2023 Urobilinogen (U) [Mass/Vol] Normal mg/dL Normal [facility] WBC Auto (Bld) [#/Vol]Ordere d By: David Mcfarland on 08-28-2023 WBC (Bld) [#/Vol] 6.4 10*3/uL 3.8-11.6 [facility] pH Auto test strip (U)Ordere d By: David Mcfarland on 08-28-2023 pH (U) 5.5 [pH] 5.0-9.0 [facility] TSHon 01-19-2023 TSH 5.502 uIU/mL Critically high 0.358-3.74 0 [facility] Comment on above: Performed By: #### T SH ####[facility] [address] [place] [address]Dr. Darrick Cao GTT 2 HRon 12-12-2022 Glucose [Mass/Vol] 117 mg/dL Critically high 74-106 T [facility] Comment on above: Performed By: #### G TT2 ####[facility] [address] [place] [address]Dr. Darrick Cao Glucose [Mass/Vol] 227 mg/dL Normal [facility] Comment on above: Performed By: #### G TT2 ####[facility] [address] [place] [address]Dr. Darrick Cao Glucose [Mass/Vol] 121 mg/dL Normal [facility] Comment on above: Performed By: #### G TT2 ####[facility] [address] [place] [id number]. Darrick Cao TSHon 12-12-2022 TSH 6.852 uIU/mL Critically high 0.358-3.74 0 [facility] Comment on above: Performed By: #### P OCGLUC #### [facility] Laboratory [address] [place] [address] [address] Darrick Cao Outside Colonoscopyon 2022 Outside Colonoscopy [id number]#[id number]:12 7 [facility] Reminderson 12-07-2022 Reminders - From: Yu Waters LPN To: GSN - Clinical; Sent: 12/07/2022 08:47:38 EST Show up: 11/08/2032 07:00:00 EST Subject: colonoscopy recall Due Date/Time: 12/06/2032 07:00:00 EST Reminder/Recall Patient is due for screening colonoscopy 12/06/2032. [facility] Consent for Procedure/Surger yon 11-09-2022 Consent for Procedure/Surgery [id number]#[id number]:12 7 [facility] Consent for Procedure/Surgery [id number]#[id number]:12 7 [facility] Facesheeton 11-09-2022 Facesheet [id number]#[id number]:12 7 [facility] Ambulatory Visit Summaryon 0 11-08-2022 Ambulatory Visit [...] Screening for malignant neoplasm of colon Normal [facility] MG MAMM SCREEN 3D BONNIE CADon 11-03-2022 MG MAMM SCREEN 3D BONNIE CAD Patient: NICOL SMITH Exam Date: 11/03/2022 : 1960 Gender:F Ordering : DR FRIEDA LOCKE . Admission #: [id number] Family : Order #: [id number] CLICK HERE TO VIEW EXAM RADIOLOGY REPORT [...] uterine cancer at age 52. LOCATION: The [facility] BREAST COMPOSITION: Scattered areas fibroglandular [...] Kelly MD on 11/03/2022 at 11:04 Normal [facility] XR DEXA BONE DENSITYon 11-03 XR [...] by: ARIELA SCHWAB Date: 2022-11-03 11:11 Normal [facility] Comprehensive Metabolic Pane yuli 10-30-2022 Urea nitrogen [Mass/Vol] 20 mg/dL [facility] Comprehensive Metabolic Panel [facility] Other Comprehensive Metabolic Panel >60 [facility] Other Comprehensive Metabolic Panel 4.2 [facility] Other Albumin [Mass/Vol] 3.7 g/dL Normal 3.4-5.0 [facility] Other Comment on above: Performed By: #### T SH, CMP, LIPID ####[facility] [address] [place] [phone]. Darrick Cao Albumin/Globulin [Mass ratio] 0.9 {ratio} Normal [facility] Other Comment on above: Performed By: #### T SH, CMP, LIPID ####[facility] [address] [place] [address]Dr. Darrick Cao ALP [Catalytic activity/Vol] 112 U/L Normal 46-116 [facility] Other Comment on above: Performed By: #### T SH, CMP, LIPID ####[facility] [address] [place], [place] [address]Dr. Darrick Cao ALT [Catalytic activity/Vol] 34 U/L Normal 14-59 [facility] Other Comment on above: Performed By: #### T SH, CMP, LIPID ####[facility] [address] [place] [address]Dr. Darrick Cao AST [Catalytic activity/Vol] 17 U/L Normal 15-37 [facility] Other Comment on above: Performed By: #### T SH, CMP, LIPID ####[facility] [address] [place], [place] [address]Dr. Darrick Cao Bilirubin [Mass/Vol] 0.4 mg/dL Normal 0.2-1.0 [facility] Other Comment on above: Performed By: #### T SH, CMP, LIPID ####[facility] [address] [place], [place] [address]Dr. Darrick Cao Calcium [Mass/Vol] 9.2 mg/dL Normal 8.5-10.1 [facility] Other Comment on above: Performed By: #### T SH, CMP, LIPID ####[facility] [address] [place], [place] [address]Wc. Darrick Cao Chloride [Moles/Vol] 105 mmol/L Normal 98-107 [facility] Other Comment on above: Performed By: #### T SH, CMP, LIPID ####[facility] [address] [place] [address]Dr. Darrick Cao CO2 [Moles/Vol] 27.0 mmol/L Normal 21.0-32.0 [facility] [place] Other Comment on above: Performed By: #### T SH, CMP, LIPID ####[facility] [address] [place], [place] [address]Dr. Darrick Cao Creatinine [Mass/Vol] 0.86 mg/dL Normal 0.55-1.02 [facility] [place] Other Comment on above: Performed By: #### T SH, CMP, LIPID ####[facility] [address] [place], [place] [address]Dr. Darrick Cao Glucose [Mass/Vol] 114 mg/dL Critically high 74-106 [facility] [place] Other Comment on above: Performed By: #### T SH, CMP, LIPID ####[facility] [address] [place] [address]Dr. Darrick Cao Potassium [Moles/Vol] 3.9 mmol/L Normal 3.5-5.1 [facility] [place] Other Comment on above: Performed By: #### T SH, CMP, LIPID ####[facility] [address] [place], [place] [address]Dr. Darrick Cao Protein [Mass/Vol] 7.9 g/dL Normal 6.4-8.2 [facility] Other Comment on above: Performed By: #### T SH, CMP, LIPID ####[facility] [address] [place], [place] [address]Dr. Darrick Cao Sodium [Moles/Vol] 143 mmol/L Normal 136-145 [facility] Other Comment on above: Performed By: #### T SH, CMP, LIPID ####[facility] [address] [place] [address]Dr. Darrick Cao FREE T4on 10-30-2022 Free T4 [Mass/Vol] 0.77 ng/dL Normal 0.76-1.46 [facility] Comment on above: Performed By: #### F T4 ####[facility] [address] [place] [address]Dr. Darrick Cao LIPID PROFILEon 10-30-2022 CHOL-HDL RATIO NORM SEE BELOW Normal [facility] Comment on above: Result Comment: 3.3 - 4.4 LOW RISK 4.4 - 7.1 AVERAGE RISK 7.1 - 11.0 MODERATE RISK >11.0 HIGH RISK Performed By: #### T SH, CMP, LIPID ####[facility] [address] [place] [address]Dr. Darrick Cao Cholesterol in LDL [Mass/Vol] 84.6 mg/dL Normal [facility] Comment on above: Performed By: #### T SH, CMP, LIPID ####[facility] [address] [place] [phone]. Darrick Cao HDL NORMAL > or = 60 mg/dl - LO W CARDIOVASCULAR RISK <40 mg/dl - HIGH CARDIOVASCULAR RISK Normal [facility] Comment on above: Performed By: #### T SH, CMP, LIPID ####[facility] [address] [place] [phone]. Darrick Cao LDL CALC NORMAL SEE BELOW Normal [facility] Comment on above: Result Comment: <100 mg/dl OPTIMAL 100 - 129 mg/dl NEAR OR ABOVE OPTIMAL 130 - 159 mg/dl BORDERLINE HIGH 160 - 189 mg/dl HIGH >190 mg/dl VERY HIGH Performed By: #### T SH, CMP, LIPID ####[facility] [address] [place] [address]Dr. Darrick Cao Triglyceride [Mass/Vol] 222 mg/dL Critically high <=150 [facility] Comment on above: Performed By: #### T SH, CMP, LIPID ####[facility] [address] [place], [place] [address]Pv. Darrick Cao VLDL CALC 44.4 mg/dL Normal [facility] Comment on above: Performed By: #### T SH, CMP, LIPID ####[facility] [address] [place] [address]Dr. Darrick Cao Lipid Panelon 10-30-2022 Cholesterol in LDL Elph Qn 84.6 [facility] Other Lipid Panel [address] [facility] [place] Other Lipid Panel 44.[address] [facility] [place] Other Cholesterol [Mass/Vol] 185 mg/dL Normal <=200 No [facility] [employer] Other Comment on above: Performed By: #### T JAOSN, CMP, LIPID ####[facility] [address] [place] [address]Dr. Darrick Cao Cholesterol in HDL [Mass/Vol] 56 mg/dL Normal 40-60 [facility] Other Comment on above: Performed By: #### T JASON, CMP, LIPID ####[facility] [address] [place] [address]Dr. Darrick Cao Cholesterol.total/Chol esterol in HDL [Mass ratio] 3.3 {ratio} Normal [facility] Other Comment on above: Performed By: #### T JASON, CMP, LIPID ####[facility] [address] [place] [address]Dr. Darrick Cao PROF 14(COMP METB)on 023 Anion gap [Moles/Vol] 14.9 mmol/L Normal [facility] Comment on above: Performed By: #### T SH, CMP, LIPID ####[facility] [address] [place] [address]Dr. Darrick Cao EGFR-AF COLOMBIAN >60 Normal >=60 [facility] Comment on above: Performed By: #### T SH, CMP, LIPID ####[facility] [address] [place], [place] [address]Uw. Darrick Cao EGFR-NON AF COLOMBIAN >60 Normal >=60 [facility] Comment on above: Performed By: #### T SH, CMP, LIPID ####[facility] [address] [place], [place] [address]Xb. Darrick Cao Globulin (S) [Mass/Vol] 4.2 g/dL Normal [facility] Comment on above: Performed By: #### T SH, CMP, LIPID ####[facility] [address] [place] [address]Dr. Darrick Cao Urea nitrogen [Mass/Vol] 20.0 mg/dL Critically high 7.0-18.0 [facility] Comment on above: Performed By: #### T SH, CMP, LIPID ####[facility] [address] [place] [address]Dr. Darrick Cao Urea nitrogen/Creatinine [Mass ratio] 23.3 mg/mg Normal [facility] Comment on above: Performed By: #### T SH, CMP, LIPID ####[facility] [address] [place] [address]Dr. Darrick Cao TSHon 10-30-2022 TSH 6.415 uIU/mL Critically high 0.358-3.74 0 [facility] Comment on above: Performed By: #### T SH, CMP, LIPID ####[facility] [address] [place] [address]Dr. Darrick Cao Thyroid Stim Hormone w/Rflxo n 10-30-2022 Thyroid Stim Hormone w/Rflx 6.415 [facility] Other VITAMIN B12on 10-30-2022 Cobalamin (Vitamin B12) [Mass/Vol] 664.0 pg/mL Normal 193.0-986. 0 [facility] Comment on above: Performed By: #### V ITB12 #### [facility] [address] [place], [place] [address] Dr. Darrick Cao Vitamin B12on 10-30-2022 Cobalamin (Vitamin B12) [Mass/Vol] 664 pg/mL [facility] Other Automated erythrocytes count in urine sediment (number/area)Ordered By: Waqas Pierce on 10-23-2022 RBC Auto (Urine sed) [#/Area] 0-1 [HPF] 0-4 [facility] Automated leukocytes count i n urine sediment (number/area)Ordered By: Waqas Pierce on 10-23-2022 WBC Auto (Urine sed) [#/Area] 10-19 [HPF] 0-4 [facility] Bilirubin Test strip Ql (U)O rdered By: Waqas Pierce on 10-23-2022 Bilirubin Ql (U) Negative Negative [facility] Color Auto (U)Ordered By: Shay Pierce on 10-23-2022 Color (U) Yellow Yellow [facility] Ketones Auto test strip (U) [Mass/Vol]Ordered By: Waqas Pierce on 10-23-2022 Ketones (U) [Mass/Vol] Negative Negative [facility] Laboratory - UrinalysisOrder ed By: Waqas Pierce on 10-23-2022 Hyaline casts LM Ql (Urine sed) 0-8 [LPF] 0-8 [facility] Nitrite Test strip Ql (U)Ord ered By: Waqas Pierce on 10-23-2022 Nitrite Ql (U) Negative Negative [facility] Protein Auto test strip (U) [Mass/Vol]Ordered By: Waqas Pierce on 10-23-2022 Protein (U) [Mass/Vol] Negative Negative [facility] Specific gravity Auto test s trip (U) [Rel density]Ordered By: Waqas Pierce on 10-23-2022 Specific gravity (U) [Rel density] 1.016 1.001-1.03 0 [facility] Squamous epithelial cells de tection in urine sediment by light microscopyOrdered By: Waqas Pierce on 10-23-2022 Epithelial cells.squamous LM Ql (Urine sed) 5-9 [HPF] 0-2 [facility] Urine Cultureon 10-23-2022 Bacteria identified Cx Nom (U) [facility] Other Urine bacteria detection by automated methodOrdered By: Waqas Pierce on 10-23-2022 Bacteria Auto Ql (U) None seen None Seen [facility] Urine clarity by refractomet ry automatedOrdered By: Waqas Pierce on 10-23-2022 Clarity Refractometry automated (U) Clear Clear [facility] Urine glucose measurement by automated test strip (mass/volume)Ordered By: Waqas Pierce on 10-23-2022 Glucose Auto test strip (U) [Mass/Vol] Normal mg/dL Normal [facility] Urine hemoglobin detection b y automated test stripOrdered By: Waqas Pierce on 10-23-2022 Hemoglobin Auto test strip Ql (U) Negative Negative [facility] Urine leukocyte esterase det ection by automated test stripOrdered By: Waqas Pierce on 10-23-2022 Leukocyte esterase Auto test strip Ql (U) 3+ Negative [facility] Urobilinogen Auto test strip (U) [Mass/Vol]Ordered By: Waqas Pierce on 10-23-2022 Urobilinogen (U) [Mass/Vol] Normal mg/dL Normal [facility] pH Auto test strip (U)Ordere d By: Waqas Pierce on 10-23-2022 pH (U) 6.0 [pH] 5.0-9.0 [facility] A1C HEMOGLOBINon 10-13-2022 HbA1c (Bld) [Mass fraction] 5.9 % [facility] Other HbA1c (Bld) [Mass fraction]o n 10-13-2022 [facility] [place] Other XR FOOT LT MIN 3 VIEWSon [...] by: ALEX RYAN Date: 2022-09-20 16:40 Normal [facility] XR LSPINE 2_3 VIEWSon 2021 XR LSPINE 2_3 VIEWS EXAMINATION: XR LSPI NE 2_3 VIEWS HISTORY: Low back pain COMPARISON: 09/26/2019 FINDINGS: BONES: Mild dextrocurvature. Moderate to severe spondylosis and facet osteoarthropathy DISC SPACES: Multilevel disc space narrowing most significant at L5-S1 PARASPINOUS: Negative. No paraspinous abnormality is seen. OTHER: Severe right hip osteoarthropathy with [id number]-[id number] articulation. Left hip arthroplasty IMPRESSION: Moderate to severe degenerative changes Electronically authenticated by: SHAWNEE KELLY Date: 2022-08-20 11:47 Normal [facility] PAP ACOG PANEL 2: 30 to 65on 06-13-2022 . . Normal [facility] Comment on above: Result Comment: Perf ormed at: WB Performed By: #### [id number] ####[facility] [address] [place] [address]Dr. Darrick Cao Age Gdln ACOG Testing 30-65 Normal [facility] Comment on above: Performed By: #### [id number] ####[facility] [address] [place] [id number]. Darrick Cao DIAGNOSIS: Comment Normal [facility] Comment on above: Result Comment: NEGA TIVE FOR INTRAEPITHELIAL LESION OR MALIGNANCY. THIS SPECIMEN WAS RESCREENED PART OF OUR CANDLE [employer] PROGRAM. Performed at: WB Performed By: #### [id number] ####[facility] [address] [place] [id number]. Darrick Cao HPV Aptima Negative Normal Negative [facility] Comment on above: Result Comment: This nucleic acid amplification test detects fourteen high-risk HPV types (16,18,31,33,35,39,45,51,52,56,58,59,66,68) without differentiation. Performed at: =G Performed By: #### 4 [id number] ####[facility] Yaq[address] [place], [place] [address]Dr. Darrick Cao Methodology: Comment Normal [facility] Comment on above: Result Comment: This liquid based ThinPrep(R) pap test was screened with the use of an image guided system. Performed at: WB Performed By: #### 4 [id number] ####[facility] I[address] [place], [place] [address]Dr. Darrick Cao Note: Comment Normal [facility] Comment on above: Result Comment: The Pap smear is a screening test designed to aid in the detection of premalignant and malignant conditions of the uterine cervix. It is not a diagnostic procedure and should not be used as the sole means of detecting cervical cancer. Both false-positive and false-negative reports do occur. . Performed at: WB Performed By: #### 4 [id number] ####[facility] I[address] [place], [place] [address]Dr. Darrick Cao Performed by: Comment Normal [facility] Comment on above: Result Comment: Solange Ann, Tuber Helper (ASCP) Performed at: WB Performed By: #### [id number] ####[facility] Lfokx[address] [place], [place] [address]Dr. Darrick Cao QC reviewed by: Comment Normal [facility] Comment on above: Result Comment: Navi Rush, Supervisory Tuber Helper (ASCP) Performed at: WB Performed By: #### [id number] ####[facility] [address] [place], [place] [address]Dr. Darrick Cao Specimen adequacy: Comment Normal [facility] Comment on above: Result Comment: Sati sfactory for evaluation. Endocervical and/or squamous metaplastic cells (endocervical component) are present. Performed at: WB Performed By: #### 4 [id number] ####[facility] [address] [place], [place] [address]DrMiguel Cao US PELVIS AND TRANSVAGon US PELVIS [...] ARIELA SCHWAB Date: 2022-06-13 14:50 Normal [facility] ACID FAST SMEAR AND CXon Acid Fast Culture Negative Normal [facility] Comment on above: Result Comment: No a liliya fast bacilli isolated after 6 weeks. Performed By: #### A FB ####[facility] E[address] [place], [place] [address]Dr. Darrick Cao Acid Fast Smear Negative Normal [facility] Comment on above: Performed By: #### A FB ####[facility] [address] [place], [place] [address]Dr. Darrick Cao AF[employer] Specimen Processing Tissue Grinding Normal [facility] Comment on above: Performed By: #### A FB ####[facility] Jw[address] [place], [place] [address]Dr. Darrick Cao FUNGAL CULTUREon 05-23-2022 Fungus (Mycology) Culture Final report Normal [facility] Comment on above: Performed By: #### C XFUN ####[facility] [address] [place] [address]Dr. Darrick Cao Fungus Stain Final report Normal [facility] Comment on above: Performed By: #### C XFUN ####[facility] H[address]lu[address] [place], [place] [address]Dr. Darrick Cao Result 1 Comment Normal [facility] Comment on above: Result Comment: MAYE/ Calcofluor preparation: no fungus observed. Performed By: #### C XFUN ####[facility] [address]ppm[address] [place] [id number]. Darrick Cao Result Comment: No y east or mold isolated after 4 weeks. WOUND CULTUREon 04-28-2022 Bacteria identified Aer cx Nom (Unsp spec) Final report Normal [facility] Comment on above: Performed By: #### C XWND #### [facility] [address] [place] [address] Dr. Darrick Cao Result 1 Comment Normal [facility] Comment on above: Result Comment: No g rowth in 36 - 48 hours. Performed By: #### C XWND #### [facility] [address] [place] [address] Dr. Darrick Cao CULTURE WOUNDon 04-26-2022 CULTURE [...] S F Vancomycin 1 S F Normal [facility] Comment on above: Performed By: #### W OUNDCX ####[facility] [address] [place] [address]Dr. Darrick Cao CBC AUTO DIFFon 04-25-2022 BASO # 0.0 103/ul Normal 0.0-0.1 [facility] Comment on above: Performed By: #### C XWND #### [facility] [address] [place] [address] Dr. Darrick Cao Basophils/100 WBC (Bld) 0.5 % Normal 0.2-2.0 [facility] Comment on above: Performed By: #### C XWND #### [facility] [address] [place] [address] Dr. Darrick Cao EO # 0.1 103/ul Normal 0.0-0.7 [facility] Comment on above: Performed By: #### C XWND #### [facility] [address] [place] [address] Dr. Darrick Cao Eosinophils/100 WBC (Bld) 1.1 % Normal 0.9-7.0 [facility] Comment on above: Performed By: #### C XWND #### [facility] [address] [place] [address] Dr. Darrick Cao Erythrocyte distribution width (RBC) [Ratio] 15.8 % Critically high 11.0-15.0 [facility] Comment on above: Performed By: #### C XWND #### [facility] [address] [place] [address] Dr. Darrick Cao Hematocrit (Bld) [Volume fraction] 31.7 % Critically low 36.0-48.0 [facility] Comment on above: Performed By: #### C XWND #### [facility] [address] [place] [address] Dr. Darrick Cao Hemoglobin (Bld) [Mass/Vol] 10.1 g/dL Critically low 12.0-16.0 [facility] Comment on above: Performed By: #### C XWND #### [facility] [address] [place] [address] Dr. Darrick Cao IG # 0.02 10e3/ul Normal 0.00-0.03 [facility] Comment on above: Performed By: #### C XWND #### [facility] [address] [place] [address] Dr. Darrick Cao IG % 0.3 % Normal 0.0-0.5 [facility] Comment on above: Performed By: #### C XWND #### [facility] [address] [place] [address] Dr. Darrick Cao LYMPH # 1.8 103/ul Normal 1.2-3.8 [facility] Comment on above: Performed By: #### C XWND #### [facility] [address] [place] [address] Dr. Darrick Cao Lymphocytes/100 WBC (Bld) 24.3 % Normal 20.5-60.0 [facility] Comment on above: Performed By: #### C XWND #### [facility] [address] [place] [address] Dr. Darrick Cao MANUAL DIFF REQ NO Normal [facility] Comment on above: Performed By: #### C XWND #### [facility] [address] [place] [address] Dr. Darrick Cao MCH (RBC) [Entitic mass] 28.0 pg Normal 26.7-34.0 [facility] Comment on above: Performed By: #### C XWND #### [facility] [address] [place] [address] Dr. Darrick Cao MCHC (RBC) [Mass/Vol] 31.9 g/dL Normal 29.9-35.2 [facility] Comment on above: Performed By: #### C XWND #### [facility] [address] [place] [address] Dr. Darrick Cao MCV (RBC) [Entitic vol] 87.8 fL Normal 81.0-99.0 [facility] Comment on above: Performed By: #### C XWND #### [facility] [address] [place] [address] Dr. Darrick Cao MONO # 0.5 103/ul Normal 0.3-0.8 [facility] Comment on above: Performed By: #### C XWND #### [facility] [address] [place] [address] Dr. Darrick Cao Monocytes/100 WBC (Bld) 7.2 % Normal 1.7-12.0 [facility] Comment on above: Performed By: #### C XWND #### [facility] [address] [place] [address] Dr. Darrick Cao NEUT # 5.0 103/ul Normal 1.4-6.5 [facility] Comment on above: Performed By: #### C XWND #### [facility] [address] [place] [address] Dr. Darrick Cao Neutrophils/100 WBC (Bld) 66.6 % Normal 43.0-75.0 [facility] Comment on above: Performed By: #### C XWND #### [facility] [address] [address] [address] Darrick Cao Platelet mean volume (Bld) [Entitic vol] 9.6 fL Normal 9.5-13.5 [facility] Comment on above: Performed By: #### C XWND #### [facility] [address] [address] [address] Darrick Cao PLT 295 103/ul Normal 150-450 [facility] Comment on above: Performed By: #### C XWND #### [facility] [address] [address] [address] Darrick Cao RBC 3.61 106/ul Critically low 4.20-5.40 [facility] Comment on above: Performed By: #### C XWND #### [facility] [address] [address] [address] Darrick Cao WBC 7.5 103/ul Normal 4.0-11.0 [facility] Comment on above: Performed By: #### C XWND #### [facility] [address] [address] [address] Darrick Cao ER URINE PROFILEon 2 Bilirubin Ql (U) Negative Normal NEGATIVE [facility] Comment on above: Performed By: #### U MICRO, ERUR ####[facility] [address] [place] [address]DrMiguel Cao Clarity (U) CLEAR Normal CLEAR [facility] Comment on above: Performed By: #### U MICRO, ERUR ####[facility] [address] [place] [id number] Cao Color (U) LT. YELLOW Normal YELLOW [facility] Comment on above: Performed By: #### U MICRO, ERUR ####[facility] [address] [place] [id number] Cao ERUAHD A micrscopic examina tion will be performed if indicated. Normal [facility] Comment on above: Performed By: #### U MICRO, ERUR ####[facility] [address] [place] [address]Dr. Darrick Cao Glucose Ql (U) Negative Normal NEGATIVE [facility] Comment on above: Performed By: #### U MICRO, ERUR ####[facility] [address] [place] [address]Dr. Darrick Cao Hemoglobin Ql (U) SMALL Abnormal NEGATIVE [facility] Comment on above: Performed By: #### U MICRO, ERUR ####[facility] [address] [place] [address]Dr. Darrick Cao Ketones Ql (U) Negative Normal NEGATIVE [facility] Comment on above: Performed By: #### U MICRO, ERUR ####[facility] [address] [place], [place] [address]Dr. Darrick Cao LEUKOCYTES Negative Normal NEGATIVE [facility] Comment on above: Performed By: #### U MICRO, ERUR ####[facility] [address] [place], [place] [address]Dr. Darrick Cao Nitrite Ql (U) Negative Normal NEGATIVE [facility] Comment on above: Performed By: #### U MICRO, ERUR ####[facility] [address] [place], [place] [address]Dr. Darrick Cao pH (U) 6.0 [pH] Normal 5-9 [facility] Comment on above: Performed By: #### U MICRO, ERUR ####[facility] [address] [place], [place] [address]Dr. Darrick Cao SPEC GRAVITY 1.020 Normal 1.005-<=1. 025 [facility] Comment on above: Performed By: #### U MICRO, ERUR ####[facility] [address] [place] [address]Dr. Darrick Cao UA PROTEIN Negative Normal NEGATIVE/ TRACE [facility] Comment on above: Performed By: #### U MICRO, ERUR ####[facility] [address] [place] [address]Dr. Adryyakov Cao UR MICRO IND INDICATED Normal [facility] Comment on above: Performed By: #### U MICRO, ERUR ####[facility] [address] [place] [address]DrMiguel Cao Urobilinogen Qn (U) 0.2 {Larissa'U}/dL Normal 0.2 - 1. 0 [facility] Comment on above: Performed By: #### U MICRO, ERUR ####[facility] [address] [place] [address]Dr. Darrick Cao POINT OF CARE GLUCOSEon 04-01 Glucose [Mass/Vol] 118 mg/dL Critically high 74-106 [facility] Comment on above: Performed By: #### P OCGLUC ####[facility] [address] [place] [address]Dr. Darrick Cao PROF 14(COMP METB)on 022 Albumin [Mass/Vol] 2.9 g/dL Critically low 3.4-5.0 [facility] Comment on above: Performed By: #### P OCGLUC #### [facility] [address] [address] [address] Darrick Cao Albumin/Globulin [Mass ratio] 0.8 {ratio} Normal [facility] Comment on above: Performed By: #### P OCGLUC #### [facility] [address] [address] [address] Darrick Cao ALP [Catalytic activity/Vol] 113 U/L Normal 46-116 [facility] Comment on above: Performed By: #### P OCGLUC #### [facility] [address] [address] [address] Darrick Cao ALT [Catalytic activity/Vol] 56 U/L Normal 14-59 [facility] Comment on above: Performed By: #### P OCGLUC #### [facility] [address] [address] [address] Darrick Cao Anion gap [Moles/Vol] 8.8 mmol/L Normal [facility] Comment on above: Performed By: #### P OCGLUC #### [facility] [address] [address] [address] Darrick Cao AST [Catalytic activity/Vol] 30 U/L Normal 15-37 [facility] Comment on above: Performed By: #### P OCGLUC #### [facility] [address] [address] [address] Darrick Cao Bilirubin [Mass/Vol] 0.3 mg/dL Normal 0.2-1.0 [facility] Comment on above: Performed By: #### P OCGLUC #### [facility] [address] [address] [address] Darrick Cao Calcium [Mass/Vol] 8.6 mg/dL Normal 8.5-10.1 [facility] Comment on above: Performed By: #### P OCGLUC #### [facility] [address] [address] [address] Darrick Cao Chloride [Moles/Vol] 105 mmol/L Normal 98-107 [facility] Comment on above: Performed By: #### P OCGLUC #### [facility] [address] [address] [address] Darrick Cao CO2 [Moles/Vol] 30.4 mmol/L Normal 21.0-32.0 [facility] Comment on above: Performed By: #### P OCGLUC #### [facility] [address] [place] [address] Dr. Darrick Cao Creatinine [Mass/Vol] 0.82 mg/dL Normal 0.55-1.02 [facility] Comment on above: Performed By: #### P OCGLUC #### [facility] [address] [address] [address] Darrick Cao EGFR-AF COLOMBIAN >60 Normal >=60 [facility] Comment on above: Performed By: #### P OCGLUC #### [facility] [address] [address] [address] Darrick Cao EGFR-NON AF COLOMBIAN >60 Normal >=60 [facility] Comment on above: Performed By: #### P OCGLUC #### [facility] [address] [place] [address] Dr. Darrick Cao Globulin (S) [Mass/Vol] 3.6 g/dL Normal [facility] Comment on above: Performed By: #### P OCGLUC #### [facility] [address] [address] [address] Darrick Cao Glucose [Mass/Vol] 103 mg/dL Normal 74-106 [facility] Comment on above: Performed By: #### P OCGLUC #### [facility] [address] [address] [address] Darrick Cao Potassium [Moles/Vol] 4.2 mmol/L Normal 3.5-5.1 [facility] Comment on above: Performed By: #### P OCGLUC #### [facility] [address] [address] [address] Darrick Cao Protein [Mass/Vol] 6.5 g/dL Normal 6.4-8.2 [facility] Comment on above: Performed By: #### P OCGLUC #### [facility] [address] [address] [address] Darrick Cao Sodium [Moles/Vol] 140 mmol/L Normal 136-145 [facility] Comment on above: Performed By: #### P OCGLUC #### [facility] [address] [address] [address] Darrick Cao Urea nitrogen [Mass/Vol] 11.0 mg/dL Normal 7.0-18.0 [facility] Comment on above: Performed By: #### P OCGLUC #### [facility] [address] [address] [address] Darrick Cao Urea nitrogen/Creatinine [Mass ratio] 13.4 mg/mg Normal [facility] Comment on above: Performed By: #### P OCGLUC #### [facility] [address] [address] [address] Darrick Cao URINE MICROSCOPIC ONLYon BACTERIA NONE SEEN Normal NONE SEEN [facility] Comment on above: Performed By: #### U MICRO, ERUR ####[facility] [address] [place] [address]Dr. Darrick Cao Bacteria identified Cx Nom (U) NOT INDICATED Normal [facility] Comment on above: Performed By: #### U MICRO, ERUR ####[facility] [address] [place] [address]Dr. Darrick Cao CAST NONE SEEN Normal NONE SEEN [facility] Comment on above: Performed By: #### U MICRO, ERUR ####[facility] [address] [place] [address]Dr. Darrick Cao Crystals LM Nom (Urine sed) NONE SEEN Normal NONE SEEN [facility] Comment on above: Performed By: #### U MICRO, ERUR ####[facility] [address] [place] [address]Dr. Darrick Cao Epithelial cells LM Ql (Urine sed) RARE Normal NONE SEEN /RARE [facility] Comment on above: Performed By: #### U MICRO, ERUR ####[facility] [address] [place] [address]Dr. Adryyakov Cao MUCOUS NONE SEEN Normal NONE SEEN [facility] Comment on above: Performed By: #### U MICRO, ERUR ####[facility] [address] [place] [address]Dr. Darrick Cao RBC 5-10 Abnormal 0-2 [facility] Comment on above: Performed By: #### U MICRO, ERUR ####[facility] [address] [place] [address]Dr. Adryyakov Cao WBC 0-2 Abnormal NONE SEEN [facility] Comment on above: Performed By: #### U MICRO, ERUR ####[facility] [address] [place] [address]Dr. Darrick Cao XR CHEST 2 Von 04-25-2022 [...] AMY FOWLER Date: 2022-04-25 20:07 Normal [facility] CBC AUTO DIFFon 04-24-2022 BASO # 0.1 103/ul Normal 0.0-0.1 [facility] Comment on above: Performed By: #### P OCGLUC #### [facility] [address] [address] [address] Darrick Cao Basophils/100 WBC (Bld) 0.8 % Normal 0.2-2.0 [facility] Comment on above: Performed By: #### P OCGLUC #### [facility] [address] [address] [address] Darrick Cao EO # 0.1 103/ul Normal 0.0-0.7 [facility] Comment on above: Performed By: #### P OCGLUC #### [facility] [address] [place] [address] Dr. Darrick Cao Eosinophils/100 WBC (Bld) 1.9 % Normal 0.9-7.0 [facility] Comment on above: Performed By: #### P OCGLUC #### [facility] [address] [place] [address] Dr. Darrick Cao Erythrocyte distribution width (RBC) [Ratio] 15.6 % Critically high 11.0-15.0 [facility] Comment on above: Performed By: #### P OCGLUC #### [facility] [address] [place] [address] Dr. Darrick Cao Hematocrit (Bld) [Volume fraction] 35.4 % Critically low 36.0-48.0 [facility] Comment on above: Performed By: #### P OCGLUC #### [facility] [address] [place] [address] Dr. Darrick Cao Hemoglobin (Bld) [Mass/Vol] 11.4 g/dL Critically low 12.0-16.0 [facility] Comment on above: Performed By: #### P OCGLUC #### [facility] [address] [place] [address] Dr. Darrick Cao IG # 0.02 10e3/ul Normal 0.00-0.03 [facility] Comment on above: Performed By: #### P OCGLUC #### [facility] [address] [address] [address] Darrick Cao IG % 0.3 % Normal 0.0-0.5 [facility] Comment on above: Performed By: #### P OCGLUC #### [facility] [address] [place] [address] Dr. Darrick Cao LYMPH # 1.9 103/ul Normal 1.2-3.8 [facility] Comment on above: Performed By: #### P OCGLUC #### [facility] [address] [place] [address] Dr. Darrick Cao Lymphocytes/100 WBC (Bld) 30.2 % Normal 20.5-60.0 [facility] Comment on above: Performed By: #### P OCGLUC #### [facility] [address] [place] [address] Dr. Darrick Cao MANUAL DIFF REQ NO Normal [facility] Comment on above: Performed By: #### P OCGLUC #### [facility] [address] [place] [address] Dr. Darrick Cao MCH (RBC) [Entitic mass] 27.9 pg Normal 26.7-34.0 [facility] Comment on above: Performed By: #### P OCGLUC #### [facility] [address] [place] [address] Dr. Darrick Cao MCHC (RBC) [Mass/Vol] 32.2 g/dL Normal 29.9-35.2 [facility] Comment on above: Performed By: #### P OCGLUC #### [facility] [address] [place] [address] Dr. Darrick Cao MCV (RBC) [Entitic vol] 86.6 fL Normal 81.0-99.0 [facility] Comment on above: Performed By: #### P OCGLUC #### [facility] [address] [place] [address] Dr. Darrick Cao MONO # 0.6 103/ul Normal 0.3-0.8 [facility] Comment on above: Performed By: #### P OCGLUC #### [facility] [address] [place] [address] Dr. Darrick Cao Monocytes/100 WBC (Bld) 9.0 % Normal 1.7-12.0 [facility] Comment on above: Performed By: #### P OCGLUC #### [facility] [address] [place] [address] Dr. Darrick Cao NEUT # 3.7 103/ul Normal 1.4-6.5 [facility] Comment on above: Performed By: #### P OCGLUC #### [facility] [address] [place] [address] Dr. Darrick Cao Neutrophils/100 WBC (Bld) 57.8 % Normal 43.0-75.0 [facility] Comment on above: Performed By: #### P OCGLUC #### [facility] [address] [place] [address] Dr. Darrick Cao Platelet mean volume (Bld) [Entitic vol] 9.5 fL Normal 9.5-13.5 [facility] Comment on above: Performed By: #### P OCGLUC #### [facility] [address] [place] [address] Dr. Darrick Cao PLT 256 103/ul Normal 150-450 [facility] Comment on above: Performed By: #### P OCGLUC #### [facility] [address] [place] [address] Dr. Darrick Cao RBC 4.09 106/ul Critically low 4.20-5.40 [facility] Comment on above: Performed By: #### P OCGLUC #### [facility] [address] [place] [address] Dr. Darrick Cao WBC 6.3 103/ul Normal 4.0-11.0 [facility] Comment on above: Performed By: #### P OCGLUC #### [facility] [address] [place] [address] Dr. Darrick Cao GRAM STAINon 04-24-2022 COMMENTS NO ORGANISMS OBSERVED Normal [facility] Comment on above: Performed By: #### C XWND #### [facility] [address] [place] [address] Dr. Darrick Cao DIPHTHEROIDS Normal [facility] Comment on above: Performed By: #### C XWND #### [facility] [address] [address] [address] Darrick Cao EPITHELIALS Normal [facility] Comment on above: Performed By: #### C XWND #### [facility] [address] [address] [address] Darrick Cao FUNGAL ELEMENTS Normal [facility] Comment on above: Performed By: #### C XWND #### [facility] [address] [address] [address] Darrick Cao GRAM NEG BACILLI Normal [facility] Comment on above: Performed By: #### C XWND #### [facility] [address] [address] [address] Darrick SOLOMON NEG DIPPLOCOCCI [facility] Comment on above: Performed By: #### C XWND #### [facility] [address] [address] [address] Darrick Cao GRAM POS BACILLI [facility] Comment on above: Performed By: #### C XWND #### [facility] [address] [address] [address] Darrick Cao GRAM POSITIVE COCCI Normal [facility] Comment on above: Performed By: #### C XWND #### [facility] [address] [address] [address] Darrick Cao GRAM STAIN SOURCE Post irrigation left foot Normal [facility] Comment on above: Performed By: #### C XWND #### [facility] [address] [address] [address] Darrick Cao GS_DIPTH [facility] Comment on above: Performed By: #### C XWND #### [facility] [address] [address] [address] Darrick Cao WBC NONE SEEN Normal [facility] Comment on above: Performed By: #### C XWND #### [facility] [address] [address] [address] Darrick Cao POINT OF CARE GLUCOSEon 07-2 Glucose [Mass/Vol] 132 mg/dL Critically high 74-106 T [facility] Comment on above: Performed By: #### P OCGLUC #### [facility] [address] [address] [address] Darrick Cao Glucose [Mass/Vol] 105 mg/dL Normal 74-106 [facility] Comment on above: Performed By: #### P OCGLUC ####[facility] [address] [address]Dr. Darrick Cao PROF 14(COMP METB)on 022 Albumin [Mass/Vol] 2.9 g/dL Critically low 3.4-5.0 [facility] Comment on above: Performed By: #### P OCGLUC #### [facility] [address] [address] [address] Darrick Cao Albumin/Globulin [Mass ratio] 0.8 {ratio} Normal [facility] Comment on above: Performed By: #### P OCGLUC #### [facility] [address] [address] [address] Darrick Cao ALP [Catalytic activity/Vol] 122 U/L Critically high 46-116 [facility] Comment on above: Performed By: #### P OCGLUC #### [facility] [address] [address] [address] Darrick Cao ALT [Catalytic activity/Vol] 65 U/L Critically high 14-59 [facility] Comment on above: Performed By: #### P OCGLUC #### [facility] [address] [address] [address] Darrick Cao Anion gap [Moles/Vol] 12.2 mmol/L Normal [facility] Comment on above: Performed By: #### P OCGLUC #### [facility] [address] [address] [address] Darrick Cao AST [Catalytic activity/Vol] 28 U/L Normal 15-37 [facility] Comment on above: Performed By: #### P OCGLUC #### [facility] [address] [place] [address] Dr. Darrick Cao Bilirubin [Mass/Vol] 0.3 mg/dL Normal 0.2-1.0 [facility] Comment on above: Performed By: #### P OCGLUC #### [facility] [address] [address] [address] Darrick Cao Calcium [Mass/Vol] 8.5 mg/dL Normal 8.5-10.1 [facility] Comment on above: Performed By: #### P OCGLUC #### [facility] [address] [address] [address] Darrick Cao Chloride [Moles/Vol] 107 mmol/L Normal 98-107 [facility] Comment on above: Performed By: #### P OCGLUC #### [facility] [address] [address] [address] Darrick Cao CO2 [Moles/Vol] 25.9 mmol/L Normal 21.0-32.0 [facility] Comment on above: Performed By: #### P OCGLUC #### [facility] [address] [address] [address] Darrick Cao Creatinine [Mass/Vol] 0.87 mg/dL Normal 0.55-1.02 [facility] Comment on above: Performed By: #### P OCGLUC #### [facility] [address] [address] [address] Darrick Cao EGFR-AF COLOMBIAN >60 Normal >=60 [facility] Comment on above: Performed By: #### P OCGLUC #### [facility] [address] [address] [address] Darrick Cao EGFR-NON AF COLOMBIAN >60 Normal >=60 [facility] Comment on above: Performed By: #### P OCGLUC #### [facility] [address] [address] [address] Darrick Cao Globulin (S) [Mass/Vol] 3.8 g/dL Normal [facility] Comment on above: Performed By: #### P OCGLUC #### [facility] [address] [address] [address] Darrick Cao Glucose [Mass/Vol] 107 mg/dL Critically high 74-106 T [facility] Comment on above: Performed By: #### P OCGLUC #### [facility] [address] [address] [address] Darrick Cao Potassium [Moles/Vol] 4.1 mmol/L Normal 3.5-5.1 [facility] Comment on above: Performed By: #### P OCGLUC #### [facility] [address] [address] [address] Darrick Cao Protein [Mass/Vol] 6.7 g/dL Normal 6.4-8.2 [facility] Comment on above: Performed By: #### P OCGLUC #### [facility] [address] [address] [address] Darrick Cao Sodium [Moles/Vol] 141 mmol/L Normal 136-145 [facility] Comment on above: Performed By: #### P OCGLUC #### [facility] [address] [place] [address] Dr. Darrick Cao Urea nitrogen [Mass/Vol] 10.0 mg/dL Normal 7.0-18.0 [facility] Comment on above: Performed By: #### P OCGLUC #### [facility] [address] [place] [address] Dr. Darrick Cao Urea nitrogen/Creatinine [Mass ratio] 11.5 mg/mg Normal [facility] Comment on above: Performed By: #### P OCGLUC #### [facility] [address] [place] [address] Dr. Darrick Cao VANCOMYCIN TROUGHon 04-24-20 VANCOMYCIN TROUGH 9.6 ug/ml Normal 5.0-20.0 [facility] Comment on above: Performed By: #### V ANCT #### [facility] [address] [place] [address] Dr. Darrick Cao CBC AUTO DIFFon 04-23-2022 BASO # 0.1 103/ul Normal 0.0-0.1 [facility] Comment on above: Performed By: #### C XWND #### [facility] [address] [place] [address] Dr. Darrick Cao Basophils/100 WBC (Bld) 0.6 % Normal 0.2-2.0 [facility] Comment on above: Performed By: #### C XWND #### [facility] [address] [place] [address] Dr. Darrick Cao EO # 0.1 103/ul Normal 0.0-0.7 [facility] Comment on above: Performed By: #### C XWND #### [facility] [address] [place] [address] Dr. Darrick Cao Eosinophils/100 WBC (Bld) 0.6 % Critically low 0.9-7.0 [facility] Comment on above: Performed By: #### C XWND #### [facility] [address] [place] [address] Dr. Darrick Cao Erythrocyte distribution width (RBC) [Ratio] 15.8 % Critically high 11.0-15.0 [facility] Comment on above: Performed By: #### C XWND #### [facility] [address] [place] [address] Dr. Darrick Cao Hematocrit (Bld) [Volume fraction] 34.0 % Critically low 36.0-48.0 [facility] Comment on above: Performed By: #### C XWND #### [facility] [address] [place] [address] Dr. Darrick Cao Hemoglobin (Bld) [Mass/Vol] 11.0 g/dL Critically low 12.0-16.0 [facility] Comment on above: Performed By: #### C XWND #### [facility] [address] [place] [address] Dr. Darrick Cao IG # 0.03 10e3/ul Normal 0.00-0.03 [facility] Comment on above: Performed By: #### C XWND #### [facility] [address] [place] [address] Dr. Darrick Cao IG % 0.4 % Normal 0.0-0.5 [facility] Comment on above: Performed By: #### C XWND #### [facility] [address] [place] [address] Dr. Darrick Cao LYMPH # 1.6 103/ul Normal 1.2-3.8 [facility] Comment on above: Performed By: #### C XWND #### [facility] [address] [place] [address] Dr. Darrick Cao Lymphocytes/100 WBC (Bld) 19.6 % Critically low 20.5-60.0 [facility] Comment on above: Performed By: #### C XWND #### [facility] [address] [place] [address] Dr. Darrick Cao MANUAL DIFF REQ NO Normal [facility] Comment on above: Performed By: #### C XWND #### [facility] [address] [place] [address] Dr. Darrick Cao MCH (RBC) [Entitic mass] 28.1 pg Normal 26.7-34.0 [facility] Comment on above: Performed By: #### C XWND #### [facility] [address] [place] [address] Dr. Darrick Cao MCHC (RBC) [Mass/Vol] 32.4 g/dL Normal 29.9-35.2 [facility] Comment on above: Performed By: #### C XWND #### [facility] [address] [place] [address] Dr. Darrick Cao MCV (RBC) [Entitic vol] 87.0 fL Normal 81.0-99.0 [facility] Comment on above: Performed By: #### C XWND #### [facility] [address] [place] [address] Dr. Darrick Cao MONO # 0.8 103/ul Normal 0.3-0.8 [facility] Comment on above: Performed By: #### C XWND #### [facility] [address] [place] [address] Dr. Darrick Cao Monocytes/100 WBC (Bld) 10.3 % Normal 1.7-12.0 [facility] Comment on above: Performed By: #### C XWND #### [facility] [address] [address] [address] Darrick Cao NEUT # 5.4 103/ul Normal 1.4-6.5 [facility] Comment on above: Performed By: #### C XWND #### [facility] [address] [address] [address] Darrick Cao Neutrophils/100 WBC (Bld) 68.5 % Normal 43.0-75.0 [facility] Comment on above: Performed By: #### C XWND #### [facility] [address] [address] [address] Darrick Cao Platelet mean volume (Bld) [Entitic vol] 9.9 fL Normal 9.5-13.5 [facility] Comment on above: Performed By: #### C XWND #### [facility] [address] [address] [address] Darrick Cao PLT 276 103/ul Normal 150-450 [facility] Comment on above: Performed By: #### C XWND #### [facility] [address] [address] [address] Darrick Cao RBC 3.91 106/ul Critically low 4.20-5.40 [facility] Comment on above: Performed By: #### C XWND #### [facility] [address] [address] [address] Darrick Cao WBC 7.9 103/ul Normal 4.0-11.0 [facility] Comment on above: Performed By: #### C XWND #### [facility] [address] [address] [address] Darrick Cao POINT OF CARE GLUCOSEon 04-01 Glucose [Mass/Vol] 138 mg/dL Critically high 74-106 [facility] Comment on above: Performed By: #### P OCGLUC ####[facility] [address] [address]Dr. Darrick Cao Glucose [Mass/Vol] 151 mg/dL Critically high 74-106 [facility] Comment on above: Performed By: #### P OCGLUC #### [facility] [address] [address] [address] Darrick Cao Glucose [Mass/Vol] 141 mg/dL Critically high 74-106 [facility] Comment on above: Performed By: #### P OCGLUC ####[facility] [address] [address]Dr. Darrick Cao PROF 14(COMP METB)on 022 Albumin [Mass/Vol] 3.0 g/dL Critically low 3.4-5.0 [facility] Comment on above: Performed By: #### C XWND #### [facility] [address] [address] [address] Darrick Cao Albumin/Globulin [Mass ratio] 0.9 {ratio} Normal [facility] Comment on above: Performed By: #### C XWND #### [facility] [address] [address] [address] Darrick Cao ALP [Catalytic activity/Vol] 128 U/L Critically high 46-116 [facility] Comment on above: Performed By: #### C XWND #### [facility] [address] [address] [address] Darrick Cao ALT [Catalytic activity/Vol] 71 U/L Critically high 14-59 [facility] Comment on above: Performed By: #### C XWND #### [facility] [address] [address] [address] Darrick Cao Anion gap [Moles/Vol] 13.1 mmol/L Normal [facility] Comment on above: Performed By: #### C XWND #### [facility] [address] [address] [address] Darrick Cao AST [Catalytic activity/Vol] 50 U/L Critically high 15-37 [facility] Comment on above: Performed By: #### C XWND #### [facility] [address] [address] [address] Darrick Cao Bilirubin [Mass/Vol] 0.3 mg/dL Normal 0.2-1.0 [facility] Comment on above: Performed By: #### C XWND #### [facility] [address] [address] [address] Darrick Cao Calcium [Mass/Vol] 8.2 mg/dL Critically low 8.5-10.1 [facility] Comment on above: Performed By: #### C XWND #### [facility] [address] [address] [address] Darrick Cao Chloride [Moles/Vol] 110 mmol/L Critically high 98-107 [facility] Comment on above: Performed By: #### C XWND #### [facility] [address] [address] [address] Darrick Cao CO2 [Moles/Vol] 23.4 mmol/L Normal 21.0-32.0 [facility] Comment on above: Performed By: #### C XWND #### [facility] [address] [address] [address] Darrick Cao Creatinine [Mass/Vol] 0.96 mg/dL Normal 0.55-1.02 [facility] Comment on above: Performed By: #### C XWND #### [facility] [address] [address] [address] Darrick Cao EGFR-AF COLOMBIAN >60 Normal >=60 [facility] Comment on above: Performed By: #### C XWND #### [facility] [address] [address] [address] Darrick Cao EGFR-NON AF COLOMBIAN 59 mL/min/1.73m2 Critically low >=60 [facility] Comment on above: Performed By: #### C XWND #### [facility] [address] [address] [address] Darrick Cao Globulin (S) [Mass/Vol] 3.3 g/dL Normal [facility] Comment on above: Performed By: #### C XWND #### [facility] [address] [address] [address] Darrick Cao Glucose [Mass/Vol] 116 mg/dL Critically high 74-106 [facility] Comment on above: Performed By: #### C XWND #### [facility] [address] [place] [address] Dr. Darrick Cao Potassium [Moles/Vol] 4.5 mmol/L Normal 3.5-5.1 [facility] Comment on above: Performed By: #### C XWND #### [facility] [address] [place] [address] Dr. Darrick Cao Protein [Mass/Vol] 6.3 g/dL Critically low 6.4-8.2 [facility] Comment on above: Performed By: #### C XWND #### [facility] [address] [place] [address] Dr. Darrick Cao Sodium [Moles/Vol] 142 mmol/L Normal 136-145 [facility] Comment on above: Performed By: #### C XWND #### [facility] [address] [place] [address] Dr. Darrick Cao Urea nitrogen [Mass/Vol] 14.0 mg/dL Normal 7.0-18.0 [facility] Comment on above: Performed By: #### C XWND #### [facility] [address] [place] [address] Dr. Darrick Cao Urea nitrogen/Creatinine [Mass ratio] 14.6 mg/mg Normal [facility] Comment on above: Performed By: #### C XWND #### [facility] [address] [place] [address] Dr. Darrick Cao CBC AUTO DIFFon 04-22-2022 BASO # 0.1 103/ul Normal 0.0-0.1 [facility] Comment on above: Performed By: #### C BC #### [facility] [address] [place] [address] Dr. Darrick Cao Basophils/100 WBC (Bld) 0.7 % Normal 0.2-2.0 [facility] Comment on above: Performed By: #### C BC #### [facility] [address] [place] [address] Dr. Darrick Cao EO # 0.1 103/ul Normal 0.0-0.7 [facility] Comment on above: Performed By: #### C BC #### [facility] [address] [place] [address] Dr. Darrick Cao Eosinophils/100 WBC (Bld) 0.5 % Critically low 0.9-7.0 [facility] Comment on above: Performed By: #### C BC #### [facility] [address] [place] [address] Dr. Darrick Cao Erythrocyte distribution width (RBC) [Ratio] 15.8 % Critically high 11.0-15.0 [facility] Comment on above: Performed By: #### C BC #### [facility] [address] [place] [address] Dr. Darrick Cao Hematocrit (Bld) [Volume fraction] 39.8 % Normal 36.0-48.0 [facility] Comment on above: Performed By: #### C BC #### [facility] [address] [place] [address] Dr. Darrick Cao Hemoglobin (Bld) [Mass/Vol] 12.9 g/dL Normal 12.0-16.0 [facility] Comment on above: Performed By: #### C BC #### [facility] [address] [place] [address] Dr. Darrick Cao IG # 0.03 10e3/ul Normal 0.00-0.03 [facility] Comment on above: Performed By: #### C BC #### [facility] [address] [place] [address] Dr. Darrick Cao IG % 0.3 % Normal 0.0-0.5 [facility] Comment on above: Performed By: #### C BC #### [facility] [address] [place] [address] Dr. Darrick Cao LYMPH # 1.6 103/ul Normal 1.2-3.8 [facility] Comment on above: Performed By: #### C BC #### [facility] [address] [place] [address] Dr. Darrick Cao Lymphocytes/100 WBC (Bld) 16.0 % Critically low 20.5-60.0 [facility] Comment on above: Performed By: #### C BC #### [facility] [address] [place] [address] Dr. Darrick Cao MANUAL DIFF REQ NO Normal [facility] Comment on above: Performed By: #### C BC #### [facility] [address] [place] [address] Dr. Darrick Cao MCH (RBC) [Entitic mass] 28.2 pg Normal 26.7-34.0 [facility] Comment on above: Performed By: #### C BC #### [facility] [address] [place] [address] Dr. Darrick Cao MCHC (RBC) [Mass/Vol] 32.4 g/dL Normal 29.9-35.2 [facility] Comment on above: Performed By: #### C BC #### [facility] [address] [place] [address] Dr. Darrick Cao MCV (RBC) [Entitic vol] 86.9 fL Normal 81.0-99.0 [facility] Comment on above: Performed By: #### C BC #### [facility] [address] [place] [address] Dr. Darrick Cao MONO # 0.9 103/ul Critically high 0.3-0.8 [facility] Comment on above: Performed By: #### C BC #### [facility] [facility] [address] [place] [address] Dr. Darrick Cao Monocytes/100 WBC (Bld) 8.7 % Normal 1.7-12.0 [facility] Comment on above: Performed By: #### C BC #### [facility] [address] [place] [address] Dr. Darrick Cao NEUT # 7.5 103/ul Critically high 1.4-6.5 [facility] Comment on above: Performed By: #### C BC #### [facility] [address] [place] [address] Dr. Darrick Cao Neutrophils/100 WBC (Bld) 73.8 % Normal 43.0-75.0 [facility] Comment on above: Performed By: #### C BC #### [facility] [address] [address] [address] Darrick Cao Platelet mean volume (Bld) [Entitic vol] 9.3 fL Critically low 9.5-13.5 [facility] Comment on above: Performed By: #### C BC #### [facility] [address] [address] [address] Darrick Cao PLT 345 103/ul Normal 150-450 [facility] Comment on above: Performed By: #### C BC #### [facility] [address] [address] [address] Darrick Cao RBC 4.58 106/ul Normal 4.20-5.40 [facility] Comment on above: Performed By: #### C BC #### [facility] [address] [address] [address] Darrick Cao WBC 10.1 103/ul Normal 4.0-11.0 [facility] Comment on above: Performed By: #### C BC #### [facility] [address] [address] [address] Darrick Cao CRPon 04-22-2022 CRP 5.2 mg/dL Critically high <=1.0 [facility] Comment on above: Performed By: #### B MP, CRP ####[facility] [address] [address]Dr. Darrick Cao CULTURE BLOODon 04-22-2022 Microscopic examination of blood, culture Culture Observations: NO GROWTH AT 5 DAYS. Normal [facility] Comment on above: Performed By: #### B LDCX2 #### [facility] [address] [address] [address] Darrick Cao Microscopic examination of blood, culture Culture Observations: NO GROWTH AT 5 DAYS. Normal [facility] Comment on above: Performed By: #### B LDCX1 #### [facility] [address] [place] [address] Dr. Darrick Cao Covid-19 PCR (CVDTB)on 04-01 SARS-CoV-2 (COVID-19) RNA ALEKSANDR+probe Ql (Unsp spec) Not detected Normal NOT DETECTED [facility] Comment on above: Result Comment: When [...] for this test is supported by the [place] of Health and Human Service's declaration that [...] used). Performed By: #### P OCGLUC #### [facility] [address] [address] [address] Darrick Cao LACTATE/LACTIC ACIDon 2021 Lactate [Moles/Vol] 1.3 mmol/L Normal 0.4-1.9 [facility] Comment on above: Performed By: #### P OCGLUC #### [facility] [address] [address] [address] Darrick Cao POINT OF CARE GLUCOSEon 04-01 Glucose [Mass/Vol] 96 mg/dL Normal 74-106 [facility] Comment on above: Performed By: #### P OCGLUC #### [facility] [address] [address] [address] Darrick Cao PROF CHEM 8 (BAS METB)on Anion gap [Moles/Vol] 12.3 mmol/L Normal [facility] Comment on above: Performed By: #### B MP, CRP ####[facility] [address] [place], [place] [address]QpDr. Darrick Cao Calcium [Mass/Vol] 9.2 mg/dL Normal 8.5-10.1 [facility] Comment on above: Performed By: #### B MP, CRP ####[facility] [address] [address]Dr. Darrick Cao Chloride [Moles/Vol] 104 mmol/L Normal 98-107 [facility] Comment on above: Performed By: #### B MP, CRP ####[facility] [address] [address]Dr. Darrick Cao CO2 [Moles/Vol] 26.4 mmol/L Normal 21.0-32.0 [facility] Comment on above: Performed By: #### B MP, CRP ####[facility] [address] [place], [place] [address]Dr. Darrick Cao Creatinine [Mass/Vol] 1.19 mg/dL Critically high 0.55-1.02 [facility] Comment on above: Performed By: #### B MP, CRP ####[facility] [address] [place], [place] [address]Dr. Darrick Cao EGFR-AF COLOMBIAN 56 mL/min/1.73m2 Critically low >=60 [facility] Comment on above: Performed By: #### B MP, CRP ####[facility] [address] [place], [place] [address]Dr. Darrick Cao EGFR-NON AF COLOMBIAN 46 mL/min/1.73m2 Critically low >=60 [facility] Comment on above: Performed By: #### B MP, CRP ####[facility] [address] [place], [place] [address]Dr. Darrick Cao Glucose [Mass/Vol] 124 mg/dL Critically high 74-106 [facility] Comment on above: Performed By: #### B MP, CRP ####[facility] [address] [place], [place] [address]Dr. Darrick Cao Potassium [Moles/Vol] 4.7 mmol/L Normal 3.5-5.1 [facility] Comment on above: Performed By: #### B MP, CRP ####[facility] [address] [place], [place] [address]Dr. Darrick Cao Sodium [Moles/Vol] 138 mmol/L Normal 136-145 [facility] Comment on above: Performed By: #### B MP, CRP ####[facility] [address] [place], [place] [address]Ef. Darrick Cao Urea nitrogen [Mass/Vol] 21.0 mg/dL Critically high 7.0-18.0 [facility] Comment on above: Performed By: #### B MP, CRP ####[facility] [address] [id number]. Darrick Cao Urea nitrogen/Creatinine [Mass ratio] 17.6 mg/mg Normal [facility] Comment on above: Performed By: #### B MP, CRP ####[facility] [address] [id number]. Darrick Cao SED RATE [facility] 2021 SED RATE 64 mm/hr Critically high <=30 [facility] Comment on above: Performed By: #### P OCGLUC #### [facility] [address] ANKLE LT WO [...] SHAWNEE KELLY Date: 2022-03-11 10:18 Normal [facility] COVID Quick Testingon 2020 Result Negative [facility] Other Operative Reporton Operative Report MR#: [id number] [facility] Pt. Name: Nicol Knowles Room #: 0C Discharge Date: Birthdate: 1960 OPERATIVE REPORT DATE OF SURGERY: 12/16/2020 SURGEON: David Lr M.D. PREOPERATIVE DIAGNOSIS: Trigger digits, right long finger and thumb. POSTOPERATIVE DIAGNOSIS: Trigger digits, right long finger and thumb. PROCEDURE: A1 leigha release, right long finger and thumb. SKI TOPPER: Hay Mast M.D. ANESTHESIA: MAC. INDICATION FOR [...] Lr M.D. Date Trans: 12/16/2020 09:13 A/braxton [id number] cc: Waqas Pierce M.D. [address] [place] [id number] Normal [facility] POC GLUCOSE LABon 12-16-2020 Glucose [Mass/Vol] 103 mg/dL High 70-100 [facility] Comment on above: Performed By: #### [id number] #### [facility] [address] [place] [address], [facility] Vital Signs Date Time Vital Sign Value Performing Clinician Facility 10-07-2024 14:15-0500 Diastolic blood pressure 80 mm[Hg] Waqas Pierce MD Work Phone: [facility] 10-07-2024 14:15-0500 Heart rate 84 /min Waqas Pierce MD Work Phone: [facility] 10-07-2024 14:15-0500 Respiratory rate 16 /min Waqas Pierce MD Work Phone: [facility] 10-07-2024 14:15-0500 SaO2% (BldA) [Mass fraction] 97 % Waqas Pierce MD Work Phone: [facility] 10-07-2024 14:15-0500 Systolic blood pressure 122 mm[Hg] Waqas Pierce MD Work Phone: [facility] 10-07-2024 12:39-0500 Body height 170.18 cm Waqas Pierce MD Work Phone: [facility] 10-07-2024 12:39-0500 Body weight 127.91 kg Waqas Pierce MD Work Phone: [facility] 09-29-2024 13:50-0500 Body height 170.18 cm Waqas Pierce MD Work Phone: [facility] 09-29-2024 13:50-0500 Body mass index (BMI) [Ratio] 44.3 kg/m2 Waqas Pierce MD Work Phone: [facility] 09-29-2024 13:50-0500 Body temperature 98 [degF] Waqas Pierce MD Work Phone: [facility] 09-29-2024 13:50-0500 Body weight 128.36 kg Waqas Pierce MD Work Phone: [facility] 09-29-2024 13:50-0500 Diastolic blood pressure 85 mm[Hg] Waqas Pierce MD Work Phone: [facility] 09-29-2024 13:50-0500 Heart rate 105 /min Waqas Pierce MD Work Phone: [facility] 09-29-2024 13:50-0500 SaO2% (BldA) [Mass fraction] 93 % Waqas Pierce MD Work Phone: [facility] 09-29-2024 13:50-0500 Systolic blood pressure 111 mm[Hg] Waqas Pierce MD Work Phone: [facility] 08-25-2024 14:08-0500 Body height 170.18 cm Waqas Pierce MD Work Phone: [facility] 08-25-2024 14:08-0500 Body mass index (BMI) [Ratio] 44.4 kg/m2 Waqas Pierce MD Work Phone: [facility] 08-25-2024 14:08-0500 Body temperature 97.4 [degF] Waqas Pierce MD Work Phone: [facility] 08-25-2024 14:08-0500 Body weight 128.82 kg Waqas Pierce MD Work Phone: [facility] 08-25-2024 14:08-0500 Diastolic blood pressure 59 mm[Hg] Waqas Pierce MD Work Phone: [facility] 08-25-2024 14:08-0500 Heart rate 88 /min Waqas Pierce MD Work Phone: [facility] 08-25-2024 14:08-0500 Systolic blood pressure 91 mm[Hg] Waqas Peirce MD Work Phone: [facility] 08-04-2024 10:48-0500 Body height 170.18 cm [facility] 08-04-2024 10:48-0500 Body mass index (BMI) [Ratio] 44.8 kg/m2 [facility] 08-04-2024 10:48-0500 Body weight 129.72 kg [facility] 08-04-2024 10:48-0500 Diastolic blood pressure 84 mm[Hg] [facility] 08-04-2024 10:48-0500 Heart rate 82 /min [facility] 08-04-2024 10:48-0500 Systolic blood pressure 128 mm[Hg] [facility] 06-19-2024 12:54-0400 Body mass index (BMI) [Ratio] 47.9 kg/m2 [facility] 06-19-2024 11:16-0400 Body height 170.18 cm [facility] 06-19-2024 11:16-0400 Body weight 129 kg [facility] 06-16-2024 09:58-0400 Body height 170.18 cm [facility] 06-16-2024 09:58-0400 Body mass index (BMI) [Ratio] 44.9 kg/m2 [facility] 06-16-2024 09:58-0400 Body weight 130.18 kg [facility] 06-16-2024 09:58-0400 Diastolic blood pressure 75 mm[Hg] [facility] 06-16-2024 09:58-0400 Heart rate 83 /min [facility] 06-16-2024 09:58-0400 Systolic blood pressure 114 mm[Hg] [facility] 05-23-2024 10:46-0400 Body mass index (BMI) [Ratio] 47.9 kg/m2 [facility] 05-23-2024 09:49-0400 Body height 170.18 cm [facility] 05-23-2024 09:49-0400 Body weight 127.45 kg [facility] 02-21-2024 10:03-0400 Body height 170.18 cm MD Waqas Pierce Work Phone: [facility] 02-21-2024 10:03-0400 Body mass index (BMI) [Ratio] 42.3 kg/m2 MD Waqas Pierce Work Phone: [facility] 02-21-2024 10:03-0400 Body weight 122.49 kg MD Waqas Pierce Work Phone: [facility] 02-21-2024 10:03-0400 Diastolic blood pressure 88 mm[Hg] MD Waqas Pierce Work Phone: [facility] 02-21-2024 10:03-0400 Heart rate 85 /min MD Waqas Pierce Work Phone: [facility] 02-21-2024 10:03-0400 Respiratory rate 18 /min MD Waqas Pierce Work Phone: [facility] 02-21-2024 10:03-0400 SaO2% (BldA) [Mass fraction] 97 % MD Waqas Pierce Work Phone: [facility] 02-21-2024 10:03-0400 Systolic blood pressure 142 mm[Hg] MD Waqas Pierce Work Phone: [facility] 01-15-2024 10:50-0400 Body height 170.18 cm [facility] 01-15-2024 10:50-0400 Body mass index (BMI) [Ratio] 47.9 kg/m2 [facility] 01-15-2024 10:50-0400 Body weight 138.88 kg [facility] 01-10-2024 09:49-0400 Body mass index (BMI) [Ratio] 47.9 kg/m2 MD Waqas Pierce Work Phone: [facility] 01-10-2024 08:37-0400 Body height 170.18 cm MD Waqas Pierce Work Phone: [facility] 01-10-2024 08:37-0400 Body weight 117.02 kg MD Waaqs Pierce Work Phone: [facility] 01-03-2024 10:52-0400 Body height 170.18 cm MD Waqas Pierce Work Phone: [facility] 01-03-2024 10:52-0400 Body mass index (BMI) [Ratio] 39.8 kg/m2 MD Waqas Pierce Work Phone: [facility] 01-03-2024 10:52-0400 Body weight 115.41 kg MD Waqas Pierce Work Phone: [facility] 01-03-2024 10:52-0400 Diastolic blood pressure 89 mm[Hg] MD Waqas Pierce Work Phone: [facility] 01-03-2024 10:52-0400 Heart rate 87 /min MD Waqas Pierce Work Phone: [facility] 01-03-2024 10:52-0400 Respiratory rate 18 /min MD Waqas Pierce Work Phone: [facility] 01-03-2024 10:52-0400 SaO2% (BldA) [Mass fraction] 99 % MD Waqas Pierce Work Phone: [facility] 01-03-2024 10:52-0400 Systolic blood pressure 128 mm[Hg] MD Waqas Pierce Work Phone: [facility] 12-10-2023 11:39-0400 Body mass index (BMI) [Ratio] 47.9 kg/m2 MD Waqas Pierce Work Phone: [facility] 12-10-2023 10:57-0400 Body height 170.18 cm MD Waqas Pierce Work Phone: [facility] 12-10-2023 10:57-0400 Body weight 117.02 kg MD Waqas Pierce Work Phone: [facility] 11-22-2023 10:59-0500 Body height 170.18 cm [facility] 11-22-2023 10:59-0500 Body mass index (BMI) [Ratio] 41.1 kg/m2 [facility] 11-22-2023 10:59-0500 Body weight 119.01 kg [facility] 11-22-2023 10:59-0500 Diastolic blood pressure 84 mm[Hg] [facility] 11-22-2023 10:59-0500 Heart rate 72 /min [facility] 11-22-2023 10:59-0500 Respiratory rate 18 /min [facility] 11-22-2023 10:59-0500 SaO2% (BldA) [Mass fraction] 99 % [facility] 11-22-2023 10:59-0500 Systolic blood pressure 132 mm[Hg] [facility] 11-21-2023 09:48-0500 Body height 170.18 cm [facility] 11-21-2023 09:48-0500 Body mass index (BMI) [Ratio] 40.7 kg/m2 [facility] 11-21-2023 09:48-0500 Body temperature 98.2 [degF] [facility] 11-21-2023 09:48-0500 Body weight 117.99 kg [facility] 11-21-2023 09:48-0500 Diastolic blood pressure 82 mm[Hg] [facility] 11-21-2023 09:48-0500 Heart rate 105 /min [facility] 11-21-2023 09:48-0500 Systolic blood pressure 131 mm[Hg] [facility] 11-19-2023 09:52-0500 Body height 170.18 cm [facility] 11-19-2023 09:52-0500 Body mass index (BMI) [Ratio] 40.8 kg/m2 [facility] 11-19-2023 09:52-0500 Body weight 118.38 kg [facility] 11-01-2023 11:15-0500 Body height 170.18 cm Waqas Pierce Other [facility] 11-01-2023 11:15-0500 Body mass index (BMI) [Ratio] 40.75 kg/m2 Waqas Pierce Other [facility] 11-01-2023 11:15-0500 Body weight 118.03 kg Waqas Pierce Other [employer] [facility] Other 11-01-2023 11:15-0500 Body weight 118.02 kg [facility] 11-01-2023 11:15-0500 Diastolic blood pressure 87 mm[Hg] Waqas Pierce Other [facility] 11-01-2023 11:15-0500 Systolic blood pressure 127 mm[Hg] Waqas Pierce Other [facility] 10-15-2023 10:00-0500 Body height 170.18 cm Grecia Fitt Other [facility] 10-15-2023 10:00-0500 Body mass index (BMI) [Ratio] 40.08 kg/m2 Grecia Fitt Other [facility] Other 10-15-2023 10:00-0500 Body weight 116.08 kg Grecia Fitt Other [facility] Other 10-15-2023 10:00-0500 Body weight 116.07 kg [facility] 09-18-2023 11:00-0500 Body height 170.18 cm Rolando Castellanos Other [facility] 09-18-2023 11:00-0500 Body mass index (BMI) [Ratio] 40.45 kg/m2 Rolando Castellanos Other [facility] Other 09-18-2023 11:00-0500 Body weight 117.16 kg Rolando Castellanos Other [facility] 09-18-2023 11:00-0500 Diastolic blood pressure 80 mm[Hg] Rolando Castellanos Other [facility] 09-18-2023 11:00-0500 Respiratory rate 18 /min Rolando Castellanos Other [facility] Other 09-18-2023 11:00-0500 SaO2% (BldA) [Mass fraction] 98 % Rolando Castellanos Other [facility] Other 09-18-2023 11:00-0500 Systolic blood pressure 115 mm[Hg] Rolando Castellanos Other [facility] 09-17-2023 10:45-0500 Body height 170.18 cm Grecia Fitt Other [facility] 09-17-2023 10:45-0500 Body mass index (BMI) [Ratio] 40.65 kg/m2 Grecia Fitt Other [facility] Other 09-17-2023 10:45-0500 Body weight 117.75 kg Grecia Fitt Other [facility] 09-03-2023 12:45-0500 Diastolic blood pressure 60 mm[Hg] MD Waqas Pierce Work Phone: [facility] 09-03-2023 12:45-0500 Heart rate 70 /min MD Waqas Pierce Work Phone: [facility] 09-03-2023 12:45-0500 Inhaled oxygen flow rate 1 L/min MD Waqas Pierce Work Phone: [facility] 09-03-2023 12:45-0500 Respiratory rate 16 /min MD Waqas Pierce Work Phone: [facility] 09-03-2023 12:45-0500 SaO2% (BldA) [Mass fraction] 97 % MD Waqas Pierce Work Phone: [facility] 09-03-2023 12:45-0500 Systolic blood pressure 132 mm[Hg] MD Waqas Pierce Work Phone: [facility] 09-03-2023 10:21-0500 Body temperature 98.4 [degF] MD Waqas Pierce Work Phone: [facility] 09-03-2023 07:14-0500 Body height 172.72 cm MD Waqas Pierce Work Phone: [facility] 09-03-2023 07:14-0500 Body mass index (BMI) [Ratio] 39.5 kg/m2 MD Waqas Pierce Work Phone: [facility] 09-03-2023 07:14-0500 Body weight 118 kg MD Waqas Pierce Work Phone: [facility] 08-21-2023 14:30-0500 Body height 170.18 cm Waqas Pierce Other [facility] Other 08-21-2023 14:30-0500 Body mass index (BMI) [Ratio] 39.46 kg/m2 Waqas Pierce Other [facility] Other 08-21-2023 14:30-0500 Body weight 114.31 kg Waqas Pierce Other [facility] Other 08-21-2023 14:30-0500 Diastolic blood pressure 84 mm[Hg] Waqas Pierce Other [facility] Other 08-21-2023 14:30-0500 Systolic blood pressure 138 mm[Hg] Waqas Pierce Other [facility] Other 08-13-2023 10:45-0500 Body height 170.18 cm Grecia Fitt Other [facility] Other 08-13-2023 10:45-0500 Body mass index (BMI) [Ratio] 41.22 kg/m2 Grecia Fitt Other [facility] Other 08-13-2023 10:45-0500 Body weight 119.39 kg Grecia Fitt Other [facility] Other 07-26-2023 11:30-0400 Body height 170.18 cm Rolando Castellanos Other [facility] Other 07-26-2023 11:30-0400 Body mass index (BMI) [Ratio] 41.86 kg/m2 Rolando Castellanos Other [facility] Other 07-26-2023 11:30-0400 Body weight 121.25 kg Rolando Castellanos Other [facility] Other 07-26-2023 11:30-0400 Diastolic blood pressure 77 mm[Hg] Rolando Castellanos Other [facility] Other 07-26-2023 11:30-0400 Respiratory rate 18 /min Rolando Castellanos Other [facility] Other 07-26-2023 11:30-0400 SaO2% (BldA) [Mass fraction] 98 % Rolando Castellanos Other [facility] Other 07-26-2023 11:30-0400 Systolic blood pressure 121 mm[Hg] Rolando Reyesdiff Other [facility] Other 07-23-2023 10:45-0400 Body height 170.18 cm Grecia Fitt Other [facility] Other 07-23-2023 10:45-0400 Body mass index (BMI) [Ratio] 41.78 kg/m2 Grecia Fitt Other [facility] Other 07-23-2023 10:45-0400 Body weight 121.02 kg Grecia Fitt Other [facility] Other 06-27-2023 15:15-0400 Body height 170.18 cm David Mcfarland II Other [facility] Other 06-27-2023 15:15-0400 Body mass index (BMI) [Ratio] 41.97 kg/m2 David Coryell II Other [facility] Other 06-27-2023 15:15-0400 Body weight 121.56 kg David Mcfarland II Other [facility] Other 06-18-2023 11:30-0400 Body height 170.18 cm Grecia Fitt Other [facility] Other 06-18-2023 11:30-0400 Body mass index (BMI) [Ratio] 42.52 kg/m2 Grecia Fitt Other [facility] Other 06-18-2023 11:30-0400 Body weight 123.15 kg Grecia Fitt Other [facility] Other 06-14-2023 10:00-0400 Body height 170.18 cm Rolando Castellanos Other [facility] Other 06-14-2023 10:00-0400 Body mass index (BMI) [Ratio] 42.89 kg/m2 Rolando Castellanos Other [facility] Other 06-14-2023 10:00-0400 Body weight 124.24 kg Rolando Castellanos Other [facility] Other 06-14-2023 10:00-0400 Diastolic blood pressure 87 mm[Hg] Rolando Castellanos Other [facility] Other 06-14-2023 10:00-0400 Respiratory rate 18 /min Rolando Castellanos Other [facility] Other 06-14-2023 10:00-0400 SaO2% (BldA) [Mass fraction] 100 % Rolandotimothy Reyesdiff Other [facility] Other 06-14-2023 10:00-0400 Systolic blood pressure 124 mm[Hg] Rolando Reyesdiff Other [facility] Other 06-11-2023 12:45-0400 Body height 170.18 cm Waqas Pierce Other [facility] Other 06-11-2023 12:45-0400 Body mass index (BMI) [Ratio] 42.41 kg/m2 Waqas Pierce Other [facility] Other 06-11-2023 12:45-0400 Body weight 122.83 kg Waqas Pierce Other [facility] Other 06-11-2023 12:45-0400 Diastolic blood pressure 76 mm[Hg] Waqas Pierce Other [facility] Other 06-11-2023 12:45-0400 Respiratory rate 12 /min Waqas Pierce Other [facility] Other 06-11-2023 12:45-0400 Systolic blood pressure 124 mm[Hg] Waqas Pierce Other [facility] Other 05-14-2023 10:00-0400 Body height 170.18 cm Grecia Fitt Other [facility] Other 05-14-2023 10:00-0400 Body mass index (BMI) [Ratio] 43.05 kg/m2 Grecia Fitt Other [facility] Other 05-14-2023 10:00-0400 Body weight 124.69 kg Grecia Fitt Other [facility] Other 04-16-2023 10:00-0400 Body height 170.18 cm Grecia Fitt Other [facility] Other 04-16-2023 10:00-0400 Body mass index (BMI) [Ratio] 43.94 kg/m2 Grecia Fitt Other [facility] Other 04-16-2023 10:00-0400 Body weight 127.28 kg Grecia Fitt Other [facility] Other 01-11-2023 11:00-0400 Body height 170.18 cm Grecia Fitt Other [facility] Other 01-11-2023 11:00-0400 Body mass index (BMI) [Ratio] 47.37 kg/m2 Grecia Fitt Other [facility] 01-11-2023 11:00-0400 Body weight 137.21 kg Grecia Fitt Other [facility] Other 11-16-2022 11:45-0500 Body height 170.18 cm Rolando Castellanos Other [facility] Other 11-16-2022 11:45-0500 Body mass index (BMI) [Ratio] 47 kg/m2 Rolando Castellanos Other [facility] Other 11-16-2022 11:45-0500 Body weight 136.13 kg Rolando Castellanos Other [facility] Other 11-16-2022 11:45-0500 Diastolic blood pressure 85 mm[Hg] Rolando Castellanos Other [facility] Other 11-16-2022 11:45-0500 Respiratory rate 18 /min Rolando Reyesdiff Other [facility] Other 11-16-2022 11:45-0500 SaO2% (BldA) [Mass fraction] 97 % Rolando Reyesdiff Other [facility] Other 11-16-2022 11:45-0500 Systolic blood pressure 114 mm[Hg] Rolando Reyesdiff Other [facility] Other 11-14-2022 09:15-0500 Body height 170.18 cm Grecia Carrera Other [facility] Other 11-08-2022 14:57-0500 Blood Pressure Location [facility] 11-08-2022 14:57-0500 Diastolic blood pressure 74 mm[Hg] Efrain NILL [facility] 11-08-2022 14:57-0500 Heart rate 80 /min Efrain NILL [facility] 11-08-2022 14:57-0500 Respiratory rate 16 /min Efrain NILL [facility] 11-08-2022 14:57-0500 Systolic blood pressure 118 mm[Hg] Efrain NILL [facility] 10-23-2022 10:30-0500 Body height 170.18 cm Waqas Pierce Other [facility] Other 10-23-2022 10:30-0500 Body mass index (BMI) [Ratio] 46.04 kg/m2 Waqas Pierce Other [facility] Other 10-23-2022 10:30-0500 Body weight 133.36 kg Waqas Pierce Other [facility] Other 10-23-2022 10:30-0500 Diastolic blood pressure 88 mm[Hg] Waqas Pierce Other [facility] Other 10-23-2022 10:30-0500 Systolic blood pressure 148 mm[Hg] Waqas Kari Other [facility] Other 10-13-2022 10:15-0500 Body height 170.18 cm Rachel Missler Other [facility] Other 10-13-2022 10:15-0500 Body mass index (BMI) [Ratio] 45.89 kg/m2 Rachel Missler Other [facility] 10-13-2022 10:15-0500 Body weight 132.9 kg Rachel Missler Other [facility] 10-13-2022 10:15-0500 Diastolic blood pressure 89 mm[Hg] Rachel Missler Other [facility] Other 10-13-2022 10:15-0500 Respiratory rate 18 /min Rachel Missler Other [facility] Other 10-13-2022 10:15-0500 SaO2% (BldA) [Mass fraction] 96 % Rachel Missler Other [facility] Other 10-13-2022 10:15-0500 Systolic blood pressure 138 mm[Hg] Rachel Missler Other [facility] Other 09-06-2022 16:00-0500 Body height 170.18 cm David Coryell II Other [facility] Other 09-06-2022 16:00-0500 Body mass index (BMI) [Ratio] 45.57 kg/m2 David Mcelroyisle II Other [facility] Other 09-06-2022 16:00-0500 Body weight 132 kg David Mcelroyisle II Other [facility] Other 07-25-2021 18:45-0400 Body height 170.18 cm Mallory Rangelault Other [facility] Other 07-25-2021 18:45-0400 Body mass index (BMI) [Ratio] 42.91 kg/m2 Mallory Wilfrid Other [facility] Other 07-25-2021 18:45-0400 Body temperature 98.6 [degF] Mallory Wilfrid Other [facility] Other 07-25-2021 18:45-0400 Body weight 124.29 kg Mallory Wilfrid Other [facility] Other 07-25-2021 18:45-0400 Respiratory rate 18 /min Mallory Wilfrid Other [facility] Other 07-25-2021 18:45-0400 SaO2% (BldA) [Mass fraction] 96 % Mallory Wilfrid Other [facility] Other Encounters Encounter Date Encounter Type Care Provider Facility Start: 10-07-2024 Non-patient / Non-visit Waqas Pierce MD Work Phone: [facility] Work Phone: Start: 10-07-2024 End: 10-07-2024 Admission to same day surgery center Waqas Pierce MD Work Phone: [facility] Work Phone: Start: 10-07-2024 End: 10-07-2024 ambulatory Waqas Pierce MD Work Phone: [facility] Work Phone: Start: 09-29-2024 End: 09-29-2024 Patient encounter procedure Waqas Pierce MD Work Phone: [facility] Work Phone: Start: 09-18-2024 Non-patient / Non-visit Waqas Pierce MD Work Phone: [facility] Work Phone: Start: 09-16-2024 Non-patient / Non-visit Waqas Pierce MD Work Phone: [facility] Work Phone: Start: 09-11-2024 Registered Recurring Waqas dang MD Work Phone: [facility] Start: 09-11-2024 Non-patient / Non-visit Waqas Pierce MD Work Phone: [facility] Work Phone: Start: 08-27-2024 End: 08-27-2024 ambulatory David Mcfarland II Facility:[facility] Start: 08-27-2024 End: 08-27-2024 Patient encounter procedure Waqas Pierce MD Work Phone: [facility] Work Phone: Start: 08-25-2024 End: 08-25-2024 Patient encounter procedure Waqas Pierce MD Work Phone: [facility] Work Phone: Start: 08-18-2024 End: 08-18-2024 ambulatory Angel Hill MD Facility: [facility] Start: 08-04-2024 End: 08-04-2024 ambulatory [facility] Work Phone: Start: 08-04-2024 End: 08-04-2024 Patient encounter procedure [facility] Work Phone: Start: 07-25-2024 End: 07-25-2024 ambulatory [facility] Start: 07-15-2024 Non-patient / Non-visit [facility] Physician [facility] Work Phone: Start: 06-19-2024 End: 06-19-2024 ambulatory [facility] Work Phone: Start: 06-19-2024 End: 06-19-2024 Patient encounter procedure [facility] Work Phone: Start: 06-17-2024 Non-patient / Non-visit [facility] Physician [facility] Work Phone: Start: 06-16-2024 Patient encounter procedure [facility] Start: 06-16-2024 End: 06-16-2024 ambulatory [facility] Work Phone: Start: 06-16-2024 End: 06-16-2024 Patient encounter procedure [facility] Phys[facility] Work Phone: Start: 05-23-2024 End: 05-23-2024 ambulatory [facility] Work Phone: Start: 05-23-2024 End: 05-23-2024 Patient encounter procedure [facility] Phys[facility] Work Phone: Start: 02-21-2024 End: 02-21-2024 ambulatory MD Waqas Pierce Work Phone: [facility] Work Phone: Start: 02-21-2024 End: 02-21-2024 Patient encounter procedure MD Waqas Pierce Work Phone: [facility] Physician [facility] Work Phone: Start: 01-15-2024 End: 01-15-2024 ambulatory NON STAFF [facility] Work Phone: Start: 01-15-2024 End: 01-15-2024 Patient encounter procedure [facility] Physician [facility] Work Phone: Start: 01-11-2024 Non-patient / Non-visit [facility] Physician [facility] Work Phone: Start: 01-10-2024 End: 01-10-2024 ambulatory MD Waqas Pierce Work Phone: [facility] Work Phone: Start: 01-10-2024 End: 01-10-2024 Patient encounter procedure MD Waqas Pierce Work Phone: [facility] Physician [facility] Work Phone: Start: 01-03-2024 End: 01-03-2024 ambulatory MD Waqas Pierce Work Phone: [facility] Work Phone: Start: 01-03-2024 End: 01-03-2024 Patient encounter procedure MD Waqas Pierce Work Phone: [facility] Physician [facility] Work Phone: Start: 12-26-2023 End: 12-26-2023 ambulatory MD Waqas Pierce Work Phone: [facility] Work Phone: Start: 12-26-2023 End: 12-26-2023 Patient encounter procedure MD Waqas Pierce Work Phone: [facility] Physician [facility] Work Phone: Start: 12-10-2023 End: 12-10-2023 Patient encounter procedure MD Waqas Pierce Work Phone: [facility] Work Phone: Start: 12-04-2023 Registered Recurring MD Waqas Pierce Work Phone: [facility] Start: 11-28-2023 End: 11-28-2023 Patient encounter procedure MD Waqas Pierce Work Phone: [facility] Work Phone: Start: 11-28-2023 End: 11-28-2023 Patient encounter procedure MD Waqas Pierce Work Phone: [facility] Start: 11-28-2023 End: 11-28-2023 ambulatory David Mcfarland II Facility:[facility] Start: 11-22-2023 End: 11-22-2023 ambulatory NON STAFF [facility] Work Phone: Start: 11-22-2023 End: 11-22-2023 Patient encounter procedure [facility] Work Phone: Start: 11-21-2023 End: 11-21-2023 ambulatory NON STAFF [facility] Work Phone: Start: 11-21-2023 End: 11-21-2023 Patient encounter procedure [facility] Work Phone: Start: 11-20-2023 Registered Recurring MD Waqas Pierce Work Phone: [facility] Start: 11-19-2023 End: 11-19-2023 ambulatory NON STAFF [facility] Work Phone: Start: 11-19-2023 End: 11-19-2023 Patient encounter procedure [facility] Work Phone: Start: 11-01-2023 End: 11-01-2023 ambulatory Waqas Pierce Other [facility] Other Start: 11-01-2023 Office outpatient vi sit 15 minutes Waqas Pierce [facility] Start: 11-01-2023 End: 11-01-2023 Patient encounter procedure [facility]- Start: 10-31-2023 End: 10-31-2023 ambulatory Waqas Pierce Other [facility] Other Start: 10-31-2023 Telephone encounter Waqas Pierce [facility] Start: 10-23-2023 Registered Recurring MD Waqas Pierce Work Phone: [facility] Start: 10-17-2023 Postop follow up vis it related to original px David Mcfarland II [facility] Start: 10-17-2023 End: 10-17-2023 Patient encounter procedure [facility] Start: 10-17-2023 End: 10-17-2023 ambulatory NON STAFF [facility] Work Phone: Start: 10-15-2023 ([address] FU) [facility] F/ U [facility] Office Associate Grecia Carrera [facility] Start: 10-15-2023 Registered Recurring [facility] Work Phone: Start: 10-15-2023 End: 10-15-2023 ambulatory David Mcfarland II [facility] Other Start: 10-15-2023 End: 10-15-2023 Patient encounter procedure [facility] Work Phone: Start: 10-02-2023 End: 10-02-2023 ambulatory Rolando Castellanos Other [facility] Other Start: 10-02-2023 Telephone encounter Rolando Vasquez [facility] Start: 09-19-2023 End: 09-19-2023 ambulatory David Mcfarland II Other [facility] Other Start: 09-19-2023 Postop follow up vis it related to original px Carrie Perea [facility] Start: 09-19-2023 Telephone encounter David Bartolo BAUGH [facility] Start: 09-19-2023 End: 09-19-2023 Patient encounter procedure [facility] Work Phone: Start: 09-18-2023 End: 09-18-2023 ambulatory Rolando Castellanos Other [facility] Other Start: 09-18-2023 Follow-up encounter Rolando dhillon [facility] Start: 09-18-2023 End: 09-18-2023 Patient encounter procedure [facility] Phys[facility] Work Phone: Start: 09-17-2023 ([facility] RD FU) [facility] F/ U [facility] Practice Office Associate Grecia Carrera [facility] Start: 09-17-2023 End: 09-17-2023 ambulatory Grecia Carrera Other [facility] Other Start: 09-17-2023 End: 09-17-2023 Patient encounter procedure [facility] Physician [facility] Work Phone: Start: 09-10-2023 End: 09-10-2023 ambulatory David Mcfarland II Other [facility] Other Start: 09-10-2023 Telephone encounter David Mcfarland II [facility] Start: 09-03-2023 End: 09-03-2023 Admission to same day surgery center MD Waqas Pierce Work Phone: [facility] Start: 09-03-2023 End: 09-03-2023 ambulatory MD Waqas Pierce Work Phone: [facility] Work Phone: Start: 08-31-2023 (Prolonged) Prolonge d Services David Mcfarland II [facility] Start: 08-31-2023 Registered Recurring MD Waqas Pierce Work Phone: [facility] [place] Start: 08-31-2023 End: 08-31-2023 ambulatory David Mcfarland II [facility] Other Start: 08-30-2023 End: 08-30-2023 ambulatory David Mcfarland II Other [employer] [facility] [place] Other Start: 08-30-2023 Office outpatient vi sit 40 minutes David Rdzle [facility] Start: 08-28-2023 End: 08-28-2023 ambulatory MD Waqas Pierce Work Phone: [facility] Work Phone: Start: 08-28-2023 End: 08-28-2023 Patient encounter procedure MD Waqas Pierce Work Phone: [facility] Work Phone: Start: 08-28-2023 Registered Recurring [facility] Start: 08-21-2023 End: 08-21-2023 ambulatory Waqas Pierce Other [facility] Other Start: 08-21-2023 Encounter for other preprocedural examination Waqas Pierce [facility] Start: 08-21-2023 Office outpatient vi sit 25 minutes Waqas Pierce [facility] Start: 08-15-2023 End: 08-15-2023 ambulatory MD Waqas Pierce Work Phone: [facility] Work Phone: Start: 08-15-2023 End: 08-15-2023 Patient encounter procedure MD Waqas Pierce Work Phone: [facility] Start: 08-13-2023 Registered Recurring MD Waqas Pierce Work Phone: [facility] Work Phone: Start: 08-13-2023 ([facility] RD FU) [facility] F/ U Register[facility] Practice Office Associate Grecia Carrera [facility] Start: 08-13-2023 End: 08-13-2023 ambulatory Grecia Carrera Other [facility] Other Start: 08-06-2023 End: 08-06-2023 ambulatory David Bartolo BAUGH Other [facility] Other Start: 08-06-2023 Telephone encounter David Mcfarland II [facility] Start: 08-01-2023 End: 08-01-2023 ambulatory Waqas Pierce Other [facility] Other Start: 08-01-2023 Telephone encounter Waqas Pierce [facility] Start: 07-31-2023 (Televisit) Televisit Waqas Pierce [facility] Start: 07-31-2023 End: 07-31-2023 ambulatory Waqas Pierce Other [facility] Other Start: 07-26-2023 End: 07-26-2023 ambulatory Rolando Castellanos Other [facility] Other Start: 07-26-2023 Follow-up encounter Rolando Vasquez [facility] Start: 07-26-2023 Telephone encounter David Rdzle AMAURI [facility] Start: 07-23-2023 ([facility] RD FU) [facility] F/ U Register[facility] Practice Office Associate Grecia Carrera [facility] Start: 07-23-2023 End: 07-23-2023 ambulatory Grecia Carrera Other [facility] Other Start: 07-09-2023 End: 07-09-2023 ambulatory Rolando Castellanos Other [facility] Other Start: 07-09-2023 Telephone encounter Rolando dhillon [facility] Start: 06-27-2023 End: 06-27-2023 ambulatory David Mcfarland II Other [facility] Other Start: 06-27-2023 Office outpatient vi sit 25 minutes David Mcfarland II [facility] Start: 06-19-2023 End: 06-19-2023 ambulatory Waqas Pierce Other [facility] Other Start: 06-19-2023 Telephone encounter Waqas Pierce [facility] Start: 06-18-2023 ([facility] FU) [facility] F/ U [facility] Practice Office Associate Grecia Carrera [facility] Start: 06-18-2023 End: 06-18-2023 ambulatory Grecia Carrera Other [facility] Other Start: 06-14-2023 End: 06-14-2023 ambulatory Rolando Castellanos Other [facility] Other Start: 06-14-2023 Follow-up encounter Rolando dhillon [facility] Start: 06-11-2023 End: 06-11-2023 ambulatory Waqas Pierce Other [facility] Other Start: 06-11-2023 Encounter for genera l adult medical examination without abnormal findings Waqas Pierce [facility] Start: 06-11-2023 Periodic preventive med est patient 40-64yrs Waqas Pierce [facility] Start: 06-01-2023 End: 06-01-2023 ambulatory Waqas Pierce Other [facility] Other Start: 06-01-2023 Telephone encounter Waqas Pierce [facility] Start: 05-28-2023 End: 05-28-2023 ambulatory Waqas Pierce Other [facility] Other Start: 05-28-2023 Telephone encounter Waqas Pierce [facility] Start: 05-14-2023 ([facility] FU) [facility] F/ U [facility] Office Associate Grecia aCrrera [facility] Start: 05-14-2023 End: 05-14-2023 ambulatory Grecia Carlt Other [facility] Other Start: 04-16-2023 ([facility] FU) [facility] F/ U [facility] Practice Office Associate Greciahuan Henryroberto [facility] Start: 04-16-2023 End: 04-16-2023 ambulatory Grecia Carlt Other [facility] Other Start: 03-21-2023 End: 03-21-2023 ambulatory Waqas Pierce Other [facility] Other Start: 03-21-2023 Telephone encounter Waqas Pierce [facility] Start: 02-22-2023 ambulatory MER MAYBERRY . Facil ity:[facility]1 Start: 02-13-2023 End: 02-14-2023 ambulatory AMY KASPER Facility:[facility] Start: 01-31-2023 End: 01-31-2023 ambulatory Waqas Pierce Other [facility] Other Start: 01-31-2023 Telephone encounter Waqas Pierce [facility] [address] Start: 01-30-2023 End: 01-31-2023 ambulatory AMY Iverson HIGHLANDER Facility:[facility] Start: 01-19-2023 End: 01-20-[address] ROLANDO CASTELLANOS Facility:[facility] Start: 01-11-2023 ([facility] WMNI) WMN Init ial Provider Grecia Carlroberto [facility] Start: 01-11-2023 End: 01-11-2023 ambulatory Grecia Fitt Other [facility] Other Start: 01-09-2023 End: 01-10-2023 ambulatory AMY Iverson HIGHLANDER Facility:[facility] Start: 12-25-2022 End: 12-25-2022 ambulatory Junior Mcgowan Other [facility] Other Start: 12-25-2022 Telephone encounter Junior King [facility] Start: 12-22-2022 End: 12-23-2022 ambulatory AMY KASPER Facility:[facility] Start: 12-18-2022 End: 12-18-2022 ambulatory Junior Mcgowan Other [facility] Other Start: 12-18-2022 Telephone encounter Junior King [facility] Start: 12-15-2022 End: 12-15-2022 ambulatory Waqas Pierce Other [facility] Other Start: 12-15-2022 Telephone encounter Waqas Pierce [facility] Start: 12-12-2022 Telephone encounter Rolando dhillon [facility] Start: 12-12-2022 End: 12-13-[address] WAQAS PIERCE [facility] Other Start: 12-06-2022 Telephone encounter Waqas Pierce [facility] Start: 12-06-2022 End: 12-07-2022 ambulatory Efrain CORTES [facility] Other Start: 12-01-2022 End: 12-02-[address] WAQAS PIERCE Facility:[facility] Start: 11-20-2022 End: 11-20-2022 ambulatory Rolando Castellanos Other [facility] Other Start: 11-20-2022 Telephone encounter Rolando dhillon [facility] Start: 11-17-2022 Telephone encounter Waqas Pierce [facility] Start: 11-17-2022 End: 11-18-[address] WAQAS PIERCE [facility] Other Start: 11-16-2022 End: 11-16-2022 ambulatory Rolando Castellanos Other [facility] Other Start: 11-16-2022 Follow-up encounter Rolando dhillon [facility] Start: 11-14-2022 End: 11-14-2022 ambulatory Grecia Debi Other [facility] Other Start: 11-14-2022 IBT FOR OBESITY GROU P 2-10 30M Grecia Carrera [facility] Start: 11-13-2022 End: 11-13-2022 ambulatory Waqas Pierce Other [facility] Other Start: 11-13-2022 Telephone encounter Waqas Pierce [facility] Start: 11-08-2022 End: 11-09-2022 ambulatory Efrain CORTES Facility:[facility] Start: 11-08-2022 End: 11-08-2022 Patient encounter procedure Efrain CORTES General Surgery [facility] Start: 11-06-2022 End: 11-07-[address] WAQAS PIERCE Facility:[facility] Start: 11-05-2022 Encounter for gynecological examination (general) (routine) without abnormal findings DR FRIEDA LOCKE . [facility] Start: 11-03-2022 End: 11-04-[address] WAQAS PIERCE Facility:[facility] Start: 10-30-2022 End: 10-31-[address] WAQAS PIERCE Facility:[facility] Start: 10-25-2022 End: 10-25-2022 ambulatory Waqas Pierce Other [facility] Other Start: 10-25-2022 Telephone encounter Waqas Pierce [facility] Start: 10-24-2022 End: 10-24-2022 ambulatory Rolando Castellanos Other [facility] Other Start: 10-24-2022 Telephone encounter Rolando dhillon [facility] Start: 10-23-2022 Office outpatient vi sit 15 minutes Waqas Pierce [facility] Start: 10-23-2022 Telephone encounter Waqas Pierce [facility] Start: 10-23-2022 End: 10-24-2022 ambulatory NON STAFF [facility] Work Phone: Start: 10-23-2022 End: 10-23-2022 Departed Referred [facility] Work Phone: Start: 10-20-2022 End: 10-20-2022 ambulatory Waqas Pierce Other [facility] Other Start: 10-20-2022 Telephone encounter Waqas Pierce [facility] Start: 10-17-2022 End: 10-18-[address] WAQAS PIERCE Facility:[facility] Start: 10-13-2022 End: 10-13-2022 ambulatory Rachel Vela Other [facility] Other Start: 10-13-2022 Nutrition therapy Rachel Vela [facility] Start: 10-13-2022 Telephone encounter Rachel Vela [facility] Start: 10-13-2022 Registered Recurring [facility] Work Phone: Start: 10-10-2022 End: 10-11-[address] WAQAS PIERCE Facility:[facility] Start: 10-06-2022 End: 10-06-2022 ambulatory Waqas Pierce Other [facility] Other Start: 10-06-2022 Telephone encounter Waqas Pierce [facility] Start: 10-04-2022 (Procedure) Rayne Mcgowan [facility] Start: 10-04-2022 End: 10-04-2022 ambulatory Junior Mcgowan Other [facility] Other Start: 10-03-2022 End: 10-04-[address] WAQAS PIERCE [facility] Other Start: 10-03-2022 Telephone encounter Junior King [facility] [place] Start: 09-27-2022 End: 09-27-2022 ambulatory Junior Roslyn Other [facility] Other Start: 09-27-2022 Telephone encounter Junior Roslyn DARNELL [facility] Start: 09-19-2022 End: 09-20-[address] WAQAS PIERCE Facility:[facility] Start: 09-11-2022 End: 09-12-[address] WAQAS PIERCE Facility:[facility] Start: 09-06-2022 End: 09-06-2022 Patient encounter procedure [facility] Start: 09-06-2022 End: 09-06-2022 ambulatory NON STAFF [facility] Work Phone: Start: 09-06-2022 FQHC visit new patient David davalos II [facility] Start: 08-28-2022 End: 08-29-[address] WAQAS PIERCE Facility:[facility] Start: 08-18-2022 Adult health examination Grecia Fitt Other [facility] Other Start: 08-18-2022 Gynecological examination normal Grecia Fitt Other [facility] Other Start: 08-18-2022 End: 08-19-[address] [...] Encounter for other preprocedural examination AMY KASPER [facility] Start: 04-24-[address] WAQAS PIERCE [...] WAQAS PIERCE Facility:[facility] Start: 07-26-2021 Pre-procedure evalua tijerman Carrera Other [facility] Other Start: 07-25-2021 Office outpatient vi sit 15 minutes Mallory Yuen [facility] Start: 06-23-2021 Office outpatient vi sit 25 minutes Junior Mcgowan [facility] [place] Start: 06-23-2021 Telephone encounter Junior Mcgowan [facility] Start: 12-16-2020 End: 12-17-2020 ambulatory REFERRED SELF Facility:[facility] Procedures Date Procedure Procedure Detail Performing Clinician Start: 10-07-2024 Esophagogastroduodenoscopy Waqas Pierce MD Work Phone: Start: 08-27-2024 Plain X-ray of right hip Waqas Pierce MD Work Phone: Start: 11-28-2023 Plain X-ray of right hip [...] WAQAS PIERCE Start: 04-24-2022 Insertion of Tissue Quantometer Operator into Left Foot Subcutaneous Tissue and Fascia, [...] Efrain NILL Decompression of median nerve Efrain HIMAL Comment on above: left wrist Fasciotomy of foot Efrain Huan MARGO 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 Francis CORTES H/O: artificial joint Aftercare following joint replacement MD Waqas Pierce Work Phone: Inject trigger finger/thumb Efrain RABAGOSharan Laboratory test result abnormal Waqas Pierce Other Screening for malign ant neoplasm of breast Grecia Fitt Other Screening for osteoporosis D awn Fitt Other Tonsillectomy and adenoidectomy Efrain CORTES Plan of Treatment Date Care Activity Detail Author Start: 10-07-2024 [facility] Start: 08-12-2024 Patient referral [facility] Work Phone: Start: 09-03-2023 Hospital admission [facility] Start: 09-03-2023 End: 09-03-2023 [facility] Start: 09-03-2023 Physical therapy procedure [facility] Start: 08-28-2023 [facility] Start: 08-28-2023 Bacteria identified in Urine by Culture [facility] aPTT in Platelet poo r plasma by Coagulation assay [facility] Bacteria identified in Urine by Culture [facility] CT Chest WO and W contrast IV [facility] Patient Education [facility] Work Phone: Patient referral [facility] Work Phone: XR Chest 2 Views [facility] XR Chest 2 Views [facility] XR Chest 2 Views [facility] Immunizations Immunization Date Immunization Notes Care Provider Fa cility 08-16-2024 COVID-19 Ad26.COV2.S (Salvador) Waqas Pierce MD Work Phone: [facility] 08-16-2024 influenza, seasonal, injectable Waqas Pierce MD Work Phone: [facility] 09-28-2023 COVID-19 (PFIZER) [id number] 12Y and older MD Waqas Pierce Work Phone: [facility] 09-28-2023 influenza, injectabl e, quadrivalent, preservative free MD Waqas Pierce Work Phone: [facility] 08-31-2022 COVID-19 (Pfizer) Bivalent Booster, Age 12Y+ [facility] 08-31-2022 influenza virus vaccine, unspecified formulation Efrain CORTES [facility] 08-31-2022 influenza, injectabl e, quadrivalent, preservative free MD Waqas Pierce Work Phone: [facility] 08-31-2022 SARS-CoV-2 (COVID-19 ) [id number] Efrain CORTES [facility] [place] 02-24-2022 COVID-19 (Pfizer); Translations: [COVID-19 (Pfizer)] MD Waqas Pierce Work Phone: [facility] 02-24-2022 COVID-19 Comirnaty (Pfizer) Tri-Sucrose 12+ MD Waqas Pierce Work Phone: [facility] 02-24-2022 SARS-CoV-2 mRNA (pscxhalwdbc-iqmk-gyymy se) vaccine Efrain NILL [facility] [place] 11-20-2021 influenza, injectabl e, quadrivalent, preservative free MD Waqas Pierce Work Phone: [facility] 08-19-2021 COVID-19 (Pfizer) [facility] 08-19-2021 SARS-CoV-2 (COVID-19 ) mRNA BNT-162b2 vax Efrain RABAGOL [facility] [place] 01-19-2021 COVID-19 (Pfizer) [facility] 01-19-2021 SARS-CoV-2 (COVID-19 ) mRNA BNT-162b2 vax [facility] [place] 12-31-2020 COVID-19 (Pfizer) [facility] 12-31-2020 SARS-CoV-2 (COVID-19 ) mRNA BNT-162b2 vax [facility] [place] 06-25-2020 influenza virus vaccine, split virus (incl. purified surface antigen) Grecia Carrera Other [facility] 06-25-2020 influenza virus vaccine, unspecified formulation [facility] 06-25-2020 influenza, injectabl e, quadrivalent, preservative free MD Waqas Pierce Work Phone: [facility] 06-25-2020 pneumococcal polysaccharide vaccine, 23 valent Grecia Carrera Other [facility] 07-30-2019 influenza, injectabl e, quadrivalent, contains preservative MD Waqas Pierce Work Phone: [facility] 07-12-2018 influenza, injectabl e, quadrivalent, preservative free MD Waqas Pierce Work Phone: [facility] 11-15-2016 influenza, injectabl e, quadrivalent, preservative free MD Waqas Pierce Work Phone: [facility] Payers Date Payer Category Payer Private Health Insurance [id number] 2023 Private Health Insurance 2022 Self-pay [id number] 1960 Unknown [id number] 2.16.840.1.840936.3.579.2.647 1962 Unknown [id number] 2.16.840.1.839752.3.579.2.727 1962 Unknown [id number] 2.16.840.1.452366.3.579.2.727 1962 Unknown [id number] 2.16.840.1.866909.3.579.2.593 1962 Unknown [id number] 2.16.840.1.902283.3.579.2.593 1962 Unknown [id number] 2.16.840.1.849162.3.579.2.593 1962 Unknown [id number] 2.16.840.1.514954.3.579.2.593 1962 Unknown [id number] 2.16.840.1.118253.3.579.2.593 1962 Unknown [id number] 2.16.840.1.320143.3.579.2.593 1962 Unknown [id number] 2.16.840.1.126981.3.579.2.593 1962 Unknown [id number] 2.16.840.1.618778.3.579.2.593 1962 Unknown [id number] 2.16.840.1.353694.3.579.2.593 1962 Unknown [id number] 2.16.840.1.682045.3.579.2.593 1962 Unknown [id number] 2.16.840.1.650164.3.579.2.593 1962 Unknown [id number] 2.16.840.1.198512.3.579.2.593 1962 Unknown [id number] 2.16.840.1.721394.3.579.2.593 1962 Unknown [id number] 2.16.840.1.844780.3.579.2.593 1962 Unknown [id number] 2.16.840.1.992817.3.579.2.593 1962 Unknown [id number] 2.16.840.1.756046.3.579.2.593 1962 Unknown [id number] 2.16.840.1.689484.3.579.2.593 1962 Unknown [id number] 2.16.840.1.610208.3.579.2.593 1962 Unknown [id number] 2.16.840.1.912893.3.579.2.593 1962 Unknown [id number] 2.16.840.1.673885.3.579.2.593 1962 Unknown [id number] 2.16.840.1.173994.3.579.2.593 1962 Unknown [id number] 2.16.840.1.269442.3.579.2.593 1962 Unknown [id number] 2.16.840.1.334147.3.579.2.593 1962 Unknown [id number] 2.16.840.1.338701.3.579.2.593 1962 Unknown [id number] 2.16.840.1.768603.3.579.2.593 1962 Unknown [id number] 2.16.840.1.365059.3.579.2.593 1962 Unknown [id number] 2.16.840.1.484628.3.579.2.593 1962 Unknown [id number] 2.16.840.1.732968.3.579.2.593 1962 Unknown [id number] 2.16.840.1.080120.3.579.2.593 1962 Unknown [id number] 2.16.840.1.825647.3.579.2.593 1962 Unknown [id number] 2.16.840.1.231979.3.579.2.593 1962 Unknown [id number] 2.16.840.1.449506.3.579.2.593 1962 Unknown [id number] 2.16.840.1.240340.3.579.2.593 1962 Unknown [id number] 2.16.840.1.106169.3.579.2.593 1962 Unknown [id number] 2.16.840.1.363842.3.579.2.593 1962 Unknown [id number] 2.16.840.1.052294.3.579.2.593 1962 Unknown [id number] 2.16.840.1.446917.3.579.2.593 1962 Unknown [id number] 2.16.840.1.350555.3.579.2.593 1962 Unknown [id number] 2.16.840.1.931683.3.579.2.593 1962 Unknown [id number] 2.16.840.1.642924.3.579.2.593 1962 Unknown [id number] 2.16.840.1.550055.3.579.2.593 1962 Unknown [id number] 2.16.840.1.150960.3.579.2.593 1962 Unknown [id number] 2.16.840.1.488216.3.579.2.593 1962 Unknown [id number] 2.16.840.1.248451.3.579.2.196 1959 Unknown [id number] 2.16. 840.1.374342.19 1959 Unknown [id number] Medicare Medicare [id number] Unknown [id number] 2.16.840.1.575324.3.579.2.531 Worker's Compensation [id number] Worker's Compensation [employer] [id number] Social History Date Type Detail Facility Unknown if ever smoked [facility] Sex Assigned At [facility] Start: 1960 Sex Assigned At Female [facility] Start: 11-08-2022 End: 10-07-2024 Tobacco smoking status Ex-smoker (finding) [facility] Comment on above: smoked one year, souleymane t 30 years ago Tobacco smoking status Never Gener [facility] [place] Comment on above: smoked one year, souleymane t 30 years ago Start: 10-07-2024 Sex Female (finding) [facility] Medical Equipment Procedure Code Equipment Code Equipment Origin al Text Equipment Identifier Dates Arthroplasty, hip, total, anterior approach Acetabular shell ()[id number] FDA Start: 09-03-2023 Arthroplasty, hip, total, anterior approach Ceramic femoral head prosthesis ()[id number] FDA Start: 09-03-2023 Arthroplasty, hip, total, anterior approach Coated hip femur prosthesis, modular ()[id number] FDA Start: 09-03-2023 Arthroplasty, hip, total, anterior approach Non-constrained polyethylene acetabular liner ()[id number] FDA Start: 09-03-2023 Start: 02-13-2023 Goals Date Patient Goal Desired Activity /State Functional Status Date Assessment Result Facility 11-08-2022 Functional Status N/A [facility] Clinical Notes 06-23-2021 to 10-07-2024 Note Date & Type Note Facility 10-07-2024 Procedure note [facility] 10-07-2024 History and physi kay note [facility] 08-04-2024 Evaluation note Diagnosis Onset Date Resolution Anemia acute August 04, 2024 10:40am Bloating acute August 04, 2024 10:40am Chronic low back pain acute Aug 10:40am Fatty liver acute August 04, 2024 10:40am Sinusitis, acute maxillary acute August 25, 2 024 1:42pm Aftercare following joint replacement acute August 27, 2024 12:14pm S/P total right hip arthroplasty acute August 27, 2 024 12:14pm BMI 40.0-44.9, adult acute Dece mb2023 1:33pm Left lower lobe pneumonia acute September 29, 2 024 1:33pm [facility] Work Phone: 1(450) 986-789910-25-2024 NoteCardiology Follow Up Progress Note Chief Complaint: Follow [...] Patient is following with hematology here at [facility] for anemia. No edema, orthopnea, or [...] 1 TABLET BY MOUTH TWICE DAILY HYDROcodone-acetaminophen ([place]) 5-325 mg tablet hydrocodone 5 mg-acetaminophen 325 [...] as needed Anita Tafoya (more content not included)...[facility]04-04-2024 Evaluation note* Author Rolando Castellanos [facility] Authored January 03, 2024 11:3 9am Highest [...] given. 1. Prediabetes most recent A1c of 5.8-cbgbi-eras treatment with long-term healthy lifestyle change, decreased [...] join the gym and start with a personalization specialist. She should consider pool therapy/ water therapy. She needs to try to keep her trigger foods out of the house. She is to try to find healthier desserts and she tends to like to have 1 after each meal. Lately her cravings for sweets have been decreased. She continues to work with our barrel burner. She understands the need for preplanning, following the plate method, having healthy foods around, keeping unhealthy foods out of her house and eating healthy Whole Foods. She does not like to cook or prep. She understands that shopping, chopping and preplanning so that she can eat healthy foods is essential to her recovery. She will continue to work with our barrel burner. We could consider Wellbutrin in the future [...] TSH with her PCP. Author Estephania Mao [facility] Authored February 21, 2024 10:30 am Highest [...] given. 1. Prediabetes most recent A1c of 5.9-gcnzc-bzvl treatment with long-term healthy lifestyle change, decreased [...] join the gym and start with a personalization specialist. She should consider pool therapy/ water therapy. She needs to try to keep her trigger foods out of the house. She is to try to find healthier desserts and she tends to like to have 1 after each meal. Lately her cravings for sweets have been decreased. She continues to work with our barrel burner. She understands the need for preplanning, following the plate method, having healthy foods around, keeping unhealthy foods out of her house and eating healthy Whole Foods. She does not like to cook or prep. She understands that shopping, chopping and preplanning so that she can eat healthy foods is essential to her recovery. She will continue to work with our barrel burner. We could consider Wellbutrin in the future [...] lab work and TSH with her PCP. [facility] Work Phone: 1(390) 995-959904-04-2024 Evaluation note* Author Rolando Castellanos [facility] Authored January 03, 2024 11:3 9am Highest [...] given. 1. Prediabetes most recent A1c of 5.0-nbihn-pmhh treatment with long-term healthy lifestyle change, decreased [...] join the gym and start with a personalization specialist. She should consider pool therapy/ water therapy. She needs to try to keep her trigger foods out of the house. She is to try to find healthier desserts and she tends to like to have 1 after each meal. Lately her cravings for sweets have been decreased. She continues to work with our barrel burner. She understands the need for preplanning, following the plate method, having healthy foods around, keeping unhealthy foods out of her house and eating healthy Whole Foods. She does not like to cook or prep. She understands that shopping, chopping and preplanning so that she can eat healthy foods is essential to her recovery. She will continue to work with our barrel burner. We could consider Wellbutrin in the future [...] TSH with her PCP. Author Rolando Castellanos [facility] Authored February 21, 2024 10:49 am Highest [...] given. 1. Prediabetes most recent A1c of 5.4-bpplt-ptpl treatment with long-term healthy lifestyle change, decreased [...] join the gym and start with a personalization specialist. She should consider pool therapy/ water therapy. [...] to continue to work closely with our structural fitter. She understands the need for preplanning, following the plate method, having healthy foods around, keeping unhealthy foods out of her house and eating healthy Whole Foods. She does not like to cook or prep. She understands that shopping, chopping and preplanning so that she can eat healthy foods is essential to her recovery. She will continue to work with our barrel burner. We could consider Wellbutrin in the future [...] lab work and TSH with her PCP. [facility] Work Phone: 1([phone]) 672-100402-22-2024 Evaluation note* Author Rolando Castellanos [facility] Authored November 22, 2023 12:47pm Highest weight [...] given. 1. Prediabetes most recent A1c of 5.0-aslgd-lxxe treatment with long-term healthy lifestyle change, decreased [...] house. She continues to work with our barrel burner. She understands the need for preplanning, following the plate method, having healthy foods around, keeping unhealthy foods out of her house and eating healthy Whole Foods. She does not like to cook or prep. She understands that shopping, chopping and preplanning so that she can eat healthy foods is essential to her recovery. She will continue to work with our barrel burner. We could consider Wellbutrin in the future [...] lab work and TSH with her PCP. [facility] Work Phone: 1(832) 547-546802-22-2024 Evaluation note* Author Rolando Castellanos [facility] Authored November 22, 2023 12:47pm Highest weight [...] given. 1. Prediabetes most recent A1c of 5.2-jtgef-ugnv treatment with long-term healthy lifestyle change, decreased [...] house. She continues to work with our barrel burner. She understands the need for preplanning, following the plate method, having healthy foods around, keeping unhealthy foods out of her house and eating healthy Whole Foods. She does not like to cook or prep. She understands that shopping, chopping and preplanning so that she can eat healthy foods is essential to her recovery. She will continue to work with our barrel burner. We could consider Wellbutrin in the future [...] TSH with her PCP. Author Estephania Mao [facility] Authored January 03, 2024 11:1 8am Highest [...] given. 1. Prediabetes most recent A1c of 5.6-zyxui-xqtx treatment with long-term healthy lifestyle change, decreased [...] house. She continues to work with our barrel burner. She understands the need for preplanning, following the plate method, having healthy foods around, keeping unhealthy foods out of her house and eating healthy Whole Foods. She does not like to cook or prep. She understands that shopping, chopping and preplanning so that she can eat healthy foods is essential to her recovery. She will continue to work with our barrel burner. We could consider Wellbutrin in the future [...] lab work and TSH with her PCP. [facility] Work Phone: 1(611) 850-105802-22-2024 Evaluation note* Author Rolando Castellanos [facility] Authored November 22, 2023 12:47pm Highest weight [...] given. 1. Prediabetes most recent A1c of 5.4-qibuf-jslv treatment with long-term healthy lifestyle change, decreased [...] house. She continues to work with our barrel burner. She understands the need for preplanning, following the plate method, having healthy foods around, keeping unhealthy foods out of her house and eating healthy Whole Foods. She does not like to cook or prep. She understands that shopping, chopping and preplanning so that she can eat healthy foods is essential to her recovery. She will continue to work with our barrel burner. We could consider Wellbutrin in the future [...] TSH with her PCP. Author Rolando Castellanos [facility] Authored January 03, 2024 11:3 9am Highest weight in program: 3 06.2. She is down 51.5 lbs. Start weight: 293.0 lbs. She is down 38.3lbs. today with a weight of 254.7 lbs she is down 7.9 lbs. since her last visit on 11/22/2023. Starting Date: 10/13/2022. Wegovy start date 01/17/2023. Wesparklevy start weight 306.2 pounds, she is down 51.5 lbs. Sample given. 1. Prediabetes most recent A1c of 5.1-kbjcl-ltbx treatment with long-term healthy lifestyle change, decreased [...] join the gym and start with a personalization specialist. She should consider pool therapy/ water therapy. She needs to try to keep her trigger foods out of the house. She is to try to find healthier desserts and she tends to like to have 1 after each meal. Lately her cravings for sweets have been decreased. She continues to work with our barrel burner. She understands the need for preplanning, following the plate method, having healthy foods around, keeping unhealthy foods out of her house and eating healthy Whole Foods. She does not like to cook or prep. She understands that shopping, chopping and preplanning so that she can eat healthy foods is essential to her recovery. She will continue to work with our barrel burner. We could consider Wellbutrin in the future [...] lab work and TSH with her PCP. [facility] Work Phone: 1([phone]) 802-794002-01-2024 Evaluation note* Encounter Date Diagnosis Assessment Notes Treatment Notes Treatment Clinical Notes Nov, Hypothyroidism (ICD-10 - E03.9) Pt due for labs - will recheck Nov, Elevated fasting glucose (ICD-10 - R73.01) Continue healthy diet and exercise as able. [facility] 01-17-2024 Evaluation note* Encounter Date Diagnosis Assessment Notes Treatment Notes Treatment Clinical Notes Oct, Aftercare following joint replacement surgery (ICD-10 - Z47.1) Oct, Presence of right artificial hip joint (ICD-10 - Z96.641) Oct, Other [facility] at [facility] on 09/03/2023 Doing well Patient may continue increasing activities as tolerated. Continue taking kwsm-sgg-brgrgvp anti-inflammatorie s as needed for assistance with swelling and pain associated with the operative extremity. Follow-up in 6 weeks for repeat examination and repeat x-rays. [facility] Other 01-15-2024 Evaluation note* Encounter Date Diagnosis Assessment Notes Treatment Notes Treatment Clinical Notes Oct, Obesity (ICD-10 - E66.9) Oct, BMI 40.0-44.9, adult (ICD-10 - Z68.41) Oct, Other Summary of Visi t: (A) Discussed including more vegetables (B) Discussed plant proteins (C) Provided recipes [facility] Other 01-02-2024 Evaluation note* Encounter Date Diagnosis Assessment Notes Treatment Notes Treatment Clinical Notes Oct, Hypothyroidism (ICD-10 - E03.9) [facility] 12-20-2023 Evaluation note* Encounter Date Diagnosis [...] right artificial hip joint (ICD-10 - Z96.641) [facility] 12-19-2023 Evaluation note* Encounter Date Diagnosis [...] Aug, Metabolic syndrome X (ICD-10 - E88.81) [facility] 12-19-2023 Evaluation note* Author Rolando Castellanos [facility] Authored November 22, 2023 11:47am Highest weight [...] given. 1. Prediabetes most recent A1c of 5.5-bujlv-utml treatment with long-term healthy lifestyle change, decreased [...] house. She continues to work with our barrel burner. She understands the need for preplanning, following the plate method, having healthy foods around, keeping unhealthy foods out of her house and eating healthy Whole Foods. She does not like to cook or prep. She understands that shopping, chopping and preplanning so that she can eat healthy foods is essential to her recovery. She will continue to work with our barrel burner. We could consider Wellbutrin in the future [...] lab work and TSH with her PCP. [facility] Work Phone: 1([phone]) 968-136512-18-2023 Evaluation note* Encounter Date Diagnosis Assessment Notes Treatment Notes Treatment Clinical Notes Aug, Obesity (ICD-10 - E66.9) Aug, BMI 40.0-44.9, adult (ICD-10 - Z68.41) Aug, Other Summary of Visi t: (A) Discussed including more vegetables (B) Answered general nutrition-related questions (C) DIscussed options for including more water [facility] 12-01-2023 Evaluation note* Encounter Date Diagnosis [...] patient could proceed with surgery safely. The city maintenance manager was vital for surgery timing and [...] plans. Prolonged services time spent: 31 minutes [facility] Other 11-30-2023 Evaluation note* Encounter Date Diagnosis [...] therapy arrives. Joints Meeting Checklist - Pharmacy: [place] to bed - Approach/Technique: anterior, [place] bed [...] above surgery. OARRS report generated and reviewed. [facility] Other 11-21-2023 Evaluation note* Encounter Date Diagnosis [...] symptoms. Any developing patterns. Stay well hydrated. [facility] Other 11-13-2023 Evaluation note* Encounter Date Diagnosis Assessment Notes Treatment Notes Treatment Clinical Notes Aug, Obesity (ICD-10 - E66.9) Aug, BMI 40.0-44.9, adult (ICD-10 - Z68.41) Aug, Other Summary of Visi t: (A) Continue current regimen (B) Much emotional support provided today (C) Encouraged continued follow up with counselor [facility] 10-31-2023 Evaluation note* Encounter Date Diagnosis Assessment Notes Treatment Notes Treatment Clinical Notes Jul, Acute laryngitis (ICD-10 - J04.0) Patient denies bacterial infection symptoms such as fever facial pressure or chills. Patient has not taken a COVID test. Discussed tfdf-bkd-ldmucel medications to use along with steroid pills that can improve her discomfort and laryngitis going forward. Advised that the steroids could elevate her blood sugar and to be mindful of that accordingly. [facility] 10-26-2023 Evaluation note* Encounter Date Diagnosis [...] Jul, Metabolic syndrome X (ICD-10 - E88.81) [facility] 10-26-2023 Evaluation note* Encounter Date Diagnosis Assessment Notes Treatment Notes Treatment Clinical Notes Jul, Other long term care social worker (current) drug therapy (ICD-10 - Z79.899) Jul, Other osteoporosis without current pathological fracture (ICD-10 - M81.8) Jul, Osteoarthritis of right hip (ICD-10 - M16.11) [facility] 10-23-2023 Evaluation note* Encounter Date Diagnosis Assessment Notes Treatment Notes Treatment Clinical Notes Jul, Obesity (ICD-10 - E66.9) Jul, BMI 40.0-44.9, adult (ICD-10 - Z68.41) Jul, Other Summary of Visi t: (A) Continue current regimen (B) Discussed ways to include more water (C) Discussed ways to include more vegetables [facility] 09-27-2023 Evaluation note* Encounter Date Diagnosis [...] the patient works on weight loss management. [facility] 09-18-2023 Evaluation note* Encounter Date Diagnosis [...] meals available that fit the plate method [facility] 09-14-2023 Evaluation note* Encounter Date Diagnosis [...] Jun, Metabolic syndrome X (ICD-10 - E88.81) [facility] 09-11-2023 Evaluation note* Encounter Date Diagnosis [...] E55.9) discussed supplementation. will check D level. [facility] 08-28-2023 Evaluation note* Encounter Date Diagnosis Assessment Notes Treatment Notes Treatment Clinical Notes May, Hypothyroidism (ICD-10 - E03.9) [facility] 08-14-2023 Evaluation note* Encounter Date Diagnosis Assessment Notes Treatment Notes Treatment Clinical Notes May, Obesity (ICD-10 - E66.9) May, BMI 40.0-44.9, adult (ICD-10 - Z68.41) May, Other Summary of Visi t: (A) Discussed cooking various foods (B) Find control in indulgences (C) Reviewed the plate method [facility] 07-17-2023 Evaluation note* Encounter Date Diagnosis Assessment Notes Treatment Notes Treatment Clinical Notes Mar, Obesity (ICD-10 - E66.9) Mar, BMI 40.0-44.9, adult (ICD-10 - Z68.41) Mar, Other Summary of Visi t: (A) Discussed cooking various foods (B) Find control in indulgences (C) emphasize self-care [facility] 05-17-2023 NotePROCEDURE: XR FOOT LT MIN [...] Electronically authenticated by: ARIELA SCHWAB Date: 2023-02-14 06:48[facility]04-13-2023 Evaluation note* Encounter Date Diagnosis Assessment [...] 2. Increase veggies, follow the plate method [facility] 03-14-2023 Evaluation note* Encounter Date Diagnosis Assessment Notes Treatment Notes Treatment Clinical Notes Nov, Abnormal laboratory test result (ICD-10 - R89.9) [facility] 03-08-2023 NoteOPERATIVE NOTE OPERATION DATE: 12/06/2022 [...] in 10 years. CC: Waqas Pierce M.D.[id number] [facility] note* Encounter Date Diagnosis Assessment Notes [...] - M16.10) Nov, Hypertension (ICD-10 - I10) [facility] 02-14-2023 Evaluation note* Encounter Date Diagnosis [...] patient set personal goal using given handout. [facility] 02-08-2023 NoteChief Complaint consultation for colonoscopy [...] Years., 11/08/2022 Family History (more content not included)...[facility]:Result Comment: Electronically Signed By: SOPHIA PINEAD, Efrain Tellez.tammie\Date and Time Signed: 11/08/22 15:29 [id number] Evaluation note* Encounter Date Diagnosis Assessment Notes [...] - G47.33) presently compliant with machine, etc [facility] 01-13-2023 Evaluation note* Encounter Date Diagnosis [...] is interested in meeting with our exercise physiologist certified, telephone encounter started to connect with her [...] week. Encouraged to take advantage of exercise physiologist certified available at [facility] that can help work around limitations. She is open to meeting with our exercise physiologist certified for guidance on exercises she can complete with her severe limitations from her foot, hip and back. Telephone encounter started. Oct, Plantar fasciitis (ICD-10 - M72.2) Oct, Arthritis of hip (ICD-10 - M16.10) Oct, Impaired fasting glucose (ICD-10 - R73.01) [facility] 12-07-2022 Evaluation note* Encounter Date Diagnosis [...] while she works on her weight loss. [facility] 11-18-2022 NotePROCEDURE: XR HIP RT 2 [...] Electronically authenticated by: SHAWNEE KELLY Date: 2022-08-18 15:54[facility]11-18-2022 NotePROCEDURE: XR FOOT LT MIN 3 [...] Electronically authenticated by: SHAWNEE KELLY Date: 2022-08-18 15:42[facility]09-16-2022 NotePROCEDURE: XR FOOT LT MIN 3 [...] Electronically authenticated by: SHAWNEE KELLY Date: 2022-06-16 16:24[facility]09-16-2022 NotePROCEDURE: XR FOOT LT MIN 3 [...] Electronically authenticated by: SHAWNEE KELLY Date: 2022-06-16 16:24[facility]08-11-2022 NotePROCEDURE: XR FOOT LT MIN 3 VIEWS COMPARISON: 04/24/2022 HISTORY: Pain in left foot FINDINGS: BONES:Stable postsurgical changes with subtalar fusion, medial midfoot hindfoot fusion and spacer at the first tarsometatarsal joint. No mechanical failure. Severe degenerative changes. SOFT TISSUES:Extensive soft tissue swelling.Dorsal woundvac EFFUSION:None visible. OTHER: Negative. IMPRESSION: Stable degenerative and post surgical changes Electronically authenticated by: SHAWNEE KELLY Date: 2022-05-11 17:16[facility]07-25-2022 NotePROCEDURE: XR FOOT LT MIN 3 [...] authenticated by: ARIELA SCHWAB Date: 2022-04-24 14:11[id number] NotePROCEDURE: XR FOOT LT 2V HISTORY: Pain [...] authenticated by: ARIELA SCHWAB Date: 2022-04-24 11:54[facility] [id number] NotePROCEDURE: XR FOOT LT MIN 3 VIEWS [...] authenticated by: ARIELA SCHWAB Date: 2022-04-22 20:52[facility] [id number] NotePROCEDURE: XR FOOT LT MIN 3 VIEWS [...] authenticated by: SHAWNEE KELLY Date: 2022-04-14 17:03[facility] [id number] Evaluation note* Encounter Date Diagnosis Assessment Notes [...] Patient care instructions given in writting by [facility] At [facility] document. [facility] 09-23-2021 Evaluation note* Encounter Date Diagnosis [...] note writ ten by Safia Calderon CMA, Clinical Sales Consultant. Edited and approved by Dr. Junior Mcgowan MD. [facility] Other Evaluation + Plan note No data available for this section General Surgery [place] Evaluation noteNo InformationN[facility]But[facility] [place] Other Evaluation noteNo assessment information available [facility] Work Phone: Evaluation note* Diagnosis Onset Date Resolution Status Change in voice acute Essential (primary) hypertension acute Family history of von Willebrand disease acute Hyperlipidemia acute Hypothyroidism acute [facility] Work Phone: Evaluation note* Diagnosis Onset Date Resolution Status Change in voice acute Essential (primary) hypertension acute Family history of von Willebrand disease acute Hyperlipidemia acute Hypothyroidism acute Medicare annual wellness visit, subsequent acute [facility] Work Phone: History and physical note Author Esau Busch [facility] Note Date/Time October 07, 2024 1: 35pm [facility] [address] [place] [address] Gastroenterology H&P Signed Patient: Nicol Smith MR#: [id number] : 1960 Acct:[id number] Age/Sex: 64 / F Adm Date: 5 Loc: Room: Type: [facility] Attending Dr: Esau Busch MD Copies to: MD Waqas Saleem MD~ Date of Service: 10/07/2024 HISTORY & PHYSICAL: Patient's history with special attention to the cardiovascular, pulmonary systems and the current problem was reviewed with the patient immediately prior to the procedure. Present medications and doses reviewed in the EMR. Allergies and pertinent laboratory tests were also reviewedat this time in the EMR. The physical examination, as below, was then performed. Indication, assessment and HPI: 64-year-old female who is referred for EGD to evaluate GERD, symptoms not currently controlled on pantoprazole 40 mg daily. Also complains of noncardiac chest pain. Family history of GI malignancy? no PHYSICAL EXAMINATION Mouth and Pharynx : moist mucus membranes, normal dentition Eyes: EOM intact b/l, normal sclera Pulmonary: normal respiratory effort, able to speak in complete sentences Neurological: alert and oriented x3, moves all extremities Skin: non-jaundiced, warm and dry Abdomen: non-distended, normal to inspection Psych: Mental status and mood grossly normal REVIEW OF SYSTEMS Constitutional: Denies malaise, fevers Cardiovascular: Denies chest pain, palpitations Respiratory: Denies shortness of breath, wheezing Gastrointestinal: Per HPI Genitourinary: Denies dysuria, polyuria Musculoskeletal: Denies joint swelling, joint stiffness Neurological: Denies numbness, tingling Integumentary: Denies rashes, skin lesions Endocrine: Denies fatigue, weight loss Written informed consent obtained from the patient. Risks (including but not limited to perforation, infection, bloating, bleeding, need for emergent surgeryand loss of life), benefits and alternatives explained and questions answered. The patient verbalized understanding. Based on history patient is an appropriate candidate for the procedure. Esau Busch MD Documented By: Esau Busch MD 10/07/24 1334 Signed By: <Electronically signed by Esau Busch MD> 10/07/24 1336 [facility] Work Phone: [facility] general Narrative - Reported* Type Description Date Medical History DDD (degenerative disc disease), lumbar Surgical History hip replacement Surgical History tonsillectomy Surgical History carpal tunnel release bilateral Hospitalization History see above [facility] general Narrative - Reported* Type Description Date Medical History DDD (degenerative disc disease), lumbar Medical History spinal stenosis Surgical History hip replacement Surgical History tonsillectomy Surgical History carpal tunnel release bilateral Surgical History vein ablasion Hospitalization History see above [facility] general Narrative - Reported* Type Description Date Medical History DDD (degenerative disc disease), lumbar Medical History spinal stenosis Surgical History hip replacement Surgical History tonsillectomy Surgical History carpal tunnel release bilateral Surgical History vein ablasion Surgical History skin graft left foot Hospitalization History see above [facility] general Narrative - Reported* Type Description Date [...] x3 202 2 Hospitalization History see above [facility] Other History general Narrative - Reported* Type [...] HIp replacement 09/03/23 Hospitalization History see above [facility] Hospital Discharge instructions No data available for this section [facility] Discharge instructions Additional Instructions Joint Replacement Discharge Instructions Your safety during your recovery process is important to us. Please seek immediate emergency care if you have sudden chest pain or shortness of breath. Additionally, please call our office at [phone] should any of the following occur: wound [...] to walk without your walker and your resident care director until the therapist checks you the following [...] and/or laxatives as directed. You may take hvhp-lto-oiojdnz Benadryl if itching occurs without a rash or hives. Icing and elevation will help relieve pain as well, do not underestimate the power of ice and elevation. We do recommend that you stop taking narcotic pain medications by 4-6 weeks after surgery and if necessary, continue to use anti-inflammatory medications such as Mobic (meloxicam), Celebrex (celecoxib), or an lesz-zmo-ombjfvk medication (Aleve, Motrin, Ibuprofen, etc). Driving an [...] feel free to call our office at [phone]. You are a priority of ours and we will not be upset with you if you call. We would much rather you call to confirm aspects of your recovery process as opposed to possibly hindering your recovery with inappropriate care. We are committed to providing you with the best care possible. David Mcfarland II, MD Updated 12/15/2022[facility] Work Phone: Progress note No data available for this section General Surgery [place] Reason for referral (narrative)* Reason Appt: Diagnosis 1 Depression (F32.9) Referral Organization [facility] Referring Provider First Name Rolando Referring Provider Last Name Jasmin Referring Provider Specialty Internal Me dicine Referred Organization [facility] Counseli jason and Recovery Natalia Referred Address [address] [place], [place],[address] Referred Provider Specialty Miscellaneou s Referral Priority Routine General Notes Anna Jose 2022 01:07:39 PM >Please contact patient to schedule. [facility] Other Summary Purpose Family History Relationship Condition [...] Diabetes mellitus Unknown Congestive heart failure Unknown Unknown Heart disease Unknown mother Osteoarthritis Unknown Primary malignant ne oplasm of bone marrow Unknown Macular degeneration Unknown Malignant neoplasm Unknown daughter Hypertension Unknown son Family history of mental disorder [...] RD WM f/u Sick-Did not test for [id number] Reason for Visit Sinusitis, acute max illary BMI 40.0-44.9, adult Fatty liver Hyperlipidemia Hypertension Pre-diabetes Aftercare following joint replacement Chest congestion Cough Chief Complaint Rd Wm F/U Obesity z47.[address] WM f/u Sinus infection WMN F/UP Z47.1 - Aftercare following joint replacement surg [address] WM f/u Sick-Did not test for [id number] Reason for Visit Sinusitis, acute max illary BMI 40.0-44.9, adult Fatty liver Hyperlipidemia Hypertension Pre-diabetes Aftercare following joint replacement Bronchitis Chest congestion Cough Chief Complaint Rd Wm F/U Obesity z47.[address] WM f/u BH Sinus infection WMN F/UP Z47.1 - Aftercare following joint replacement surg [address] WM f/u Sick-Did not test for [id number] RD WM f/u Reason for Visit Sinusitis, [...] RD WM f/u Sick-Did not test for [id number] RD WM f/u Habit forming Reason for Visit Sinusitis, acute max illary BMI 40.0-44.9, adult Fatty liver Hyperlipidemia Hypertension Pre-diabetes Aftercare following joint replacement Bronchitis Chest congestion Cough BMI 40.0-44.9, adult Fatty liver Hyperlipidemia Pre-diabetes Chief Complaint Z47.1 - Aftercare fo [facility] joint replacement surg [address] WM f/u Sick-Did not test for [id number] RD WM f/u Habit forming Reason for Visit Aftercare following joint replacement Bronchitis Chest congestion Cough BMI 40.0-44.9, adult Fatty liver Hyperlipidemia Pre-diabetes Chief Complaint BH RD WM f/u Sick-Did not test for [id number] RD WM f/u Habit forming Reason for [...] Medicare annual wellness visit, subsequent Chief Complaint Admit Date Infusion f/u August 04, 2024 1 0:40am sinus infection August 25, 2024 1:42pm 9 months August 27, 2024 12:14pm Z47.1 - Aftercare following joint replac ement surg August 27, 2024 12:42pm BH September 11, 2024 11:25am Amb Documentation September 18, 2024 9:49am ER f/u pneumonia September 29, 2024 1:33pm gerd/dyspepsia October 07, 2024 11 :41am CC Adult Risk Stratification October 1:15pm gerd/dyspepsia October 07, 2024 1: 34pm Reason for Visit Admit Date Anemia August 04, 2024 1 0:40am Bloating August 04, 2024 1 0:40am Chronic low back pain August 04, 2024 10:40am Fatty liver August 04, 2024 1 0:40am Sinusitis, acute maxillary August 1:42pm Aftercare following joint replacement No vember 2023 12:14pm S/P total right hip arthroplasty Novembe r 2023 12:14pm BMI 40.0-44.9, adult September 29, 2024 1:33pm Left lower lobe pneumonia September 29, 2024 1:33pm Additional Source Comments INFORMATION SOURCE (unrecogn ized section and content) DATE CREATED AUTHOR 04/29/2021 [facility] DATE CREATED AUTHOR AUTHOR'S ORGANIZ ATION 12/20/2022 [facility] DATE CREATED AUTHOR AUTHOR'S ORGANIZ ATION 03/09/2023 [facility] DATE CREATED AUTHOR AUTHOR'S ORGANIZ ATION 08/19/2024 [facility] DATE CREATED AUTHOR AUTHOR'S ORGANIZ ATION 08/23/2024 [facility] DATE CREATED AUTHOR AUTHOR'S ORGANIZ [...] MD Primary Care Provider Active Team Status: Active Member Role Status Dates Waqas Pierce MD Primary Care Provider Active Start: July 15, 2024 Suze Hurtado MD Attending Provider Active St art: July 15, 2024 Team Status: Inactive Member Role Status Dates Waqas Pierce MD Primary Care Provide r, Attending Provider Active Start: August 04, 2024 End: August 04, 2024 Team Status: Inactive Member Role Status Dates Waqas Pierce MD Primary Care Provide r, Attending Provider Active Start: August 25, 2024 End: August 25, 2024 Team Status: Inactive Member Role Status Dates Waqas Pierce MD Primary Care Provider Active Start: August 27, 2024 End: August 27, 2024 David Mcfarland II, MD Attending Provider Active Start: August 27, 2024 End: August 27, 2024 Team Status: Active Member Role Status Dates Waqas Pierce MD Primary Care Provider Active Start: September 11, 2024 Suze Hurtado MD Attending Provider Active St art: September 11, 2024 Team Status: Active Member Role Status Dates NON STAFF Primary Care Provider Active Start: September 11, 2024 Marcin Grace MD Attending Provider Active Start: September 11, 2024 Team Status: Active Member Role Status Dates Waqas Pierce MD Primary Care Provide r, Attending Provider Active Start: September 16, 2024 Team Status: Active Member Role Status Dates Waqas Pierce MD Primary Care Provider Active Start: September 18, 2024 Tara Nicholson CMA Attending Provider Active Start: September 18, 2024 Team Status: Inactive Member Role Status Dates Waqas Pierce MD Primary Care Provide r, Attending Provider Active Start: September 29, 2024 End: September 29, 2024 Team Status: Inactive Member Role Status Dates Waqas Pierce MD Primary Care Provider Active Start: October 07, 2024 End: October 07, 2024 Esau Busch MD Attending Provider Active S tart: October 07, 2024 End: October 07, 2024 Team Status: Active Member Role Status Dates Waqas Pierce MD Primary Care Provide r, Attending Provider Active Start: October 07, 2024 Team Status: Active Member Role Status Dates Waqas Pierce MD Primary Care Provider Active Start: October 07, 2024 Esau Busch MD Attending Provider, Other Provider Active Start: October 07, 2024 Team Status: Active Member Role Status [...] End: December 26, 2023 Carrie Bhakta APRN RN [employer]-C Attending Provider Act pradeep Start: December 26, [...] Inactive Member Role Status Dates Grecia Pham [facility] Attending Provider Active Start: October [...] Inactive Member Role Status Dates Grecia Pham [facility] Attending Provider Active Start: September 17, 2023 End: September 17, 2023 Team Status: Inactive Member Role Status Dates Rolando Castellanos MD Attending Provider Active Start: September 18, 2023 End: September 18, 2023 Team Status: Inactive Member Role Status Dates RAYMOND OrtizC Attending Provider Active Start: September 19, 2023 [...] August 04, 2024 End: August 04, 2024 Team Status: Inactive Member Role Status Dates Waqas Pierce MD Primary Care Provide r, Attending Provider Active Start: August 25, 2024 End: August 25, 2024 Team Status: Inactive Member Role Status Dates Waqas Pierce MD Primary Care Provider Active Start: August 27, 2024 End: August 27, 2024 David Mcfarland II, MD Attending Provider Active Start: August 27, 2024 End: August 27, 2024 Team Status: Active Member Role Status Dates Waqas Pierce MD Primary Care Provider Active Start: September 11, 2024 Suze Hurtado MD Attending Provider Active St art: September 11, 2024 Team Status: Active Member Role Status Dates NON STAFF Primary Care Provider Active Start: September 11, 2024 Marcin Grace MD Attending Provider Active Start: September 11, 2024 Team Status: Active Member Role Status Dates Waqas Pierce MD Primary Care Provide r, Attending Provider Active Start: September 16, 2024 Team Status: Active Member Role Status Dates Waqas Pierce MD Primary Care Provider Active Start: September 18, 2024 Tara Nicholson CMA Attending Provider Active Start: September 18, 2024 Team Status: Inactive Member Role Status Dates Waqas Pierce MD Primary Care Provide r, Attending Provider Active Start: September 29, 2024 End: September 29, 2024 Team Status: Inactive Member Role Status Dates Waqas Pierce MD Primary Care Provider Active Start: October 07, 2024 End: October 07, 2024 Esau Busch MD Attending Provider Active S tart: October 07, 2024 End: October 07, 2024 Team Status: Active Member Role Status Dates Waqas Pierce MD Primary Care Provide r, Attending Provider Active Start: October 07, 2024 Team Status: Active Member Role Status Dates Waqas Pierce MD Primary Care Provider Active Start: October 07, 2024 Esau Busch MD Attending Provider, Other Provider Active Start: October 07, 2024 Goals (unrecognized section and content) Goals [...] BE BASED ON THE PRIMARY CLINICAL RECORDS. [employer] provides no warranty or guarantee of the accuracy or completeness of information in this document.
[2024-10-13 09:36] VITALS: BP 139/93; PULSE 82; TEMP 36.6; O2SAT 99
[2024-10-13 09:45] LABS: Glucometer 97 mg/dL (74-106)
[2024-10-13 10:34] VITALS: PULSE 91; O2SAT 99
[2024-10-13] MEDS: 0.9 % SODIUM CHLORIDE 10 ML SYRINGE - SALINE FLUSH INJ (10:34)
[2024-10-13] MEDS: BUPIVACAINE HCL 0.25% PF 25 MG/10 ML VIAL INJ (10:34)
[2024-10-13] MEDS: IOHEXOL 240 MG/ML - 10 ML VIAL 24 MG INJ (10:35)
[2024-10-13] MEDS: METHYLPREDNISOLONE ACETATE 80 MG/ML VIAL INJ (10:35)
[2024-10-13] MEDS: LIDOCAINE HCL 2% 400 MG/20 ML MDV 3 ML INJ (10:35)
[2024-10-13 10:36] VITALS: BP 161/80; BP 168/83; PULSE 95; O2SAT 100
--- NOTE | 2024-10-13 10:37 | W.PM.PROCNOT ---
Date of procedure: 10/13/24 Pre-op diagnosis: Pain due to lumbar stenosis with neurogenic claudication Post-op diagnosis: same as pre-op Procedure: Procedure: Bilateral L4-5 transforaminal epidural steroid injection Medications: Bupivacaine 0.25% 2cc, lidocaine 2% 1cc, depomedrol 80mg The patient was seen and examined in the preoperative holding area.? Informed consent was obtained and placed on the chart.? Patient was brought to the medical procedure unit and placed in the prone position where a timeout was completed verifying the correct patient, procedure site, position, and planned special equipment using sterile aseptic technique.? Under direct fluoroscopic visualization a 25-gauge Quincke tipped spinal needle was advanced at level left L4-5 to the designated neural foramen where contrast dye was injected to show adequate spread.? There was no evidence of vascular or adverse uptake.? Epidural spread was appreciated.? The above-mentioned injectate was then placed in a 1.5 mL aliquot preceded by negative aspiration.? The needle was removed. The same procedure, at the same level, was completed on the opposite side. ? Patient was taken to the postprocedural recovery area and monitored for an appropriate length of time before found suitable for discharge in the accompaniment of a responsible adult. Anesthesia: Local Surgeon: [place] Pathology: none sent Condition: stable Disposition: no change
== END 2024-10-13 10:46 | disposition home or self-care (01) ==
PROVIDERS: PCP Family Medicine; Visit Provider Anesthesiology
DX: M48.062 Spinal stenosis, lumbar region with neurogenic claudication (principal)
CPT/HCPCS: 36415; 64483; 82948; J0665; J1010; Q9966

== ENCOUNTER 2024-10-23 08:31 | Outpatient (OUT) | payer MEDICARE, SELFPAY ==
--- OUTSIDE RECORDS SUMMARY | 2024-10-23 08:44 | XMS_ITS | CCD ---
Author Organization [facility] Care Team Providers Care Flying Instructor Name Role Phone SELF, REFERRED Referring Unavailable DAVID LR Admitting Unavailable DAVID LR Attending Unavailable WAQAS PIERCE Primary Care Unavailable DAVID LR Surgeon Unavailable PA Procedure Practitioner Unavailab JUDSON Martinez Surgeon Unavailable PA Procedure Practitioner Unavailab Junior Peterson Unavailable Mallory Yuen Unavailable NON STAFF Primary Care Provider UnavailMD David Merritt II Attending Provider David Mcfarland II Unavailable MD Waqas Pierce Primary Care Provider MD Waqas Pierce Attending Provider [phone] WAQAS PIERCE Primary Care Physician Waqas Pierce Unavailable Rachel Vela Unavailable Rolando Castellanos Unavailable Grecia Carrera Unavailable Efrain CORTES Attending Unavailable Efrain CORTES Attending Unavailable KARI, DR WAQAS Mendez Primary Care Unavailable AMY KASPER Attending Unavailable AMY KASPER Admitting Unavailable KARI, DR WAQAS Mendez Primary Care Unavailable SOPHIA Rivera, DR SHARMA Attending Unavailable SOPHIA Rivera, DR SHARMA Admitting Unavailable SOPHIA Rivera, DR SHARMA Consulting Unavailable DIEGO WHITLEY Consulting Unavailable MARIA EUGENIA HUTTON Consulting Unavailable KARI, DR WAQAS Mendez Primary Care Unavailable JASMIN, DR MARSHALL Attending Unavailable JASMIN, DR MARSHALL Admitting Unavailable JASMIN, DR MARSHALL Consulting Unavailable KARI, DR WAQAS Mendez Primary Care Unavailable AMY KASPER Attending Unavailable IJEOMA, DR SHAWNEE James Consulting Unavailable AMY KASPER Admitting Unavailable HIGHLANDER, AMY Iverson Consulting Unavailable [...] WAQAS Mendez Primary Care Unavailable HIGHLANDER, AMY Ivesron Attending Unavailable HIGHLANDER, PETER D Admitting Unavailable [...] HIGHLANDER, AMY Iverson Admitting Unavailable HIGHLANDER, AMY D Admitting Unavailable [...] Consulting Unavailable HIGHLUDAY, AMY Iverson Consulting Unavailable AGUBOSIM, MELINDA Consulting Unavailable RANJITH, AMY Iverson Procedure Practitioner Unava ilELICEO Mills Consulting Unavailable CATRINA, SHAIKH Carlos Consulting Unavailable TUNDE NORMAN Consulting Unavailable DEVIN, [...] Provider MD Waqas Pierce Primary Care Provider [phone] NON STAFF Primary Care Provider Unavailsabino mendez Carrie Perea Unavailable MD David Mcfarland II Attending Provider MD Waqas Pierce Primary Care Provider NON STAFF Primary Care Provider UnavailMD Marcin Chambers Attending Provider MD David Mcfarland II Attending Provider MD David Mcfarland II Attending Provider [phone] MD Waqas Pierce Primary Care Provider NON STAFF Primary Care Provider UnavailMD Marcin Chambers Attending Provider MD Marcin Grace Attending Provider MD David Mcfarland II Attending Provider MD Waqas Pierce Primary Care Provider [phone] MD David Mcfarland II Attending Provider NON STAFF Primary Care Provider UnavailMD Marcin Chambers Attending Provider ANITA TAFOYA Attending Unavailable Waqas Pierce MD Primary Care Provider Bartolo PINEDA, David Gordillo Attending Provider NON STAFF Primary Care Provider Unavailabl Marcin Loomis MD Attending Provider Esau Busch MD Attending Provider David Mcfarland II Admitting Unavailabl e Bartolo BAUGH, David Gordillo Attending Unavailabl e NON STAFF Primary Care Unavailable Bartolo BAUGH, David Gordillo Attending Unavailabl e Waqas Pierce E Primary Care Unavailable Bartolo BAUGH, David Gordillo Admitting Unavailabl e Bartolo BAUGH, David Gordillo Attending Unavailabl e Bartolo BAUGH, David Gordillo Admitting Unavailabl e Waqas Pierce Primary Care Unavailable Esau Busch Admitting Unavailable Esau Busch Attending Unavailable Waqas Pierce Primary Care Unavailable Bartolo BAUGH, David Gordillo Attending Unavailabl e Waqas Pierce E Primary Care Unavailable Bartolo BAUGH, David Gordillo Admitting Unavailabl myron Hill MD, Angel Grande Attending Unavailable Sergio PINEDA, Angel Grande Attending Unavailable Sergio PINEDA, Angel Grande Attending Unavailable Allergies Allergy Classification Reported Allergen(s) Allergy Type Date of Onset Reaction(s) Facility metFORMIN (1 source) metFORMIN; Translations: [METFORMIN] Drug Allergy 12-17-19 [facility] Repository Penicillins (antibiotic) (1 source) Penicillin Drug Allergy 03-11-20 18 [facility] Repository Serotonin (1 source) Serotonin; Translations: [SEROTONIN] Drug Allergy 12-17-19 21 [facility] Repository (20 sources) Penicillin G Drug Allergy 11-01-19 [facility] (20 sources) CYMBOLTA Propensity to adverse reactions temporary blindness and couldnt feel herself breathing [employer] [facility] [email or web address] Other (20 sources) DULoxetine; Translations: [duloxetine] Drug Allergy 09-05-20 22 Impairment level of vision (disorder) [facility] [place] (20 sources) metFORMIN; Translations: [metformin] Drug Allergy 09-05-20 22 Abdominal mass (finding) [facility] [place] (20 sources) Penicillin; Translations: [penicillin] Drug Allergy 08-08-20 13 Eruption of skin (disorder) [facility] [place] (1 source) DULoxetine Drug Allergy [facility] Repository (1 source) metFORMIN Drug Allergy [facility] Repository (19 sources) Penicillins; Translations: [PENICILLINS] Drug allergy (disorder) 10-01-19 00 Rash [facility] Repository (20 sources) Rx Essentials Antidepressant *HEMATOPOIETIC AGENTS Propensity to adverse reactions Comment:[facility] [employer] [facility] [email or web address] Other (3 sources) Allergies Reconciled Propensity to adverse reactions 08-17-20 21 Unknown [email or web address] Other (20 sources) Substance with penicillin structure and antibacterial mechanism of action (substance) Drug allergy Unknown [email or web address] Other (20 sources) Substance with serotonin re-uptake inhibitor mechanism of action (substance) Drug allergy 09-04-20 12 SEROTONIN HCL [employer] [facility] [email or web address] Other (3 sources) patient allergy list reviewed by nurse or physicia Propensity to adverse reactions 12-09-19 14 Comment:Done [email or web address] Other (17 sources) Serotonin Drug Allergy 08-28-20 23 temporary blindness, couldn't feel self breath [facility] (14 sources) Rx Essentials Antidepressant * Allergy to substance 11-01-19 Comment:[facility] Comment on above: Free Text Allergy: R [...] DISCHARGE DOS: 09/03/23 Aug, Active Tylenol Active [id number] 200 actuat albuterol 0.09 mg/actuat metered dose [...] Ordered docusate sodium 50 mg / sennosides, halfway 8.6 mg oral tablet (12 sources) Start: [...] TABLET BY MOUTH DAILY polyethylene glycol 3350 [id number] mg powder for oral solution (14 sources) [...] (1999) (3 sources) take 1 capsule by [facility] once daily Vitamin D 50 MCG (1999) [...] 2:17pm Start: 08-01-2023 take 1 capsule by [facility] every eight hours Benzonatate 200 MG 1 [...] 9:19am Start: 10-19-2019 take 1 capsule by [facility] every twelve hours Doxycycline Monohydrate 100 MG [...] 4 Chronic Other aftercare (2 sources) 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; Translations: [OTH SENIOR CARE [...] [Aftercare following joint replacement surgery] Onset: 4 Urinary tract infections (6 sources) Urinary tract [...] 09-16-2024 Bilirubin Ql (U) Negative NEGATIVE [facility] Glucose (U) [Mass/Vol] Negative NEGATIVE [facility] Ketones Ql (U) Negative NEGATIVE [facility] pH (U) 6.0 [pH] 5.0-9.0 [facility] Specific gravity (U) [Rel density] 1.025 1.005-1.02 5 [facility] Urobilinogen Qn (U) 0.2 {Larissa'U}/dL 0.2-1.0 [facility] Laboratory - Microbiology an d Antimicrobial susceptibilityon 09-16-2024 S. pyogenes Ag Ql (Unsp spec) Negative [facility] SARS-CoV-2 (COVID-19) RNA ALEKSANDR+probe Ql (Unsp spec) Negative NEGATIVE [facility] Comment on above: This test has not [...] inform ationon 09-16-2024 Appearance (U) CLEAR CLEAR [facility] Color (U) LT. YELLOW YELLOW [facility] Laboratory - Urinalysison Leukocyte esterase Test strip Ql (U) TRACE Abnormal NEGATIVE [facility] Mucus Ql (Urine sed) NONE SEEN NONE SEEN [facility] Nitrite Ql (U) Negative NEGATIVE [facility] Protein Ql (U) Negative NEG/TRACE [facility] No Panel Informationon 09-16 Bedside Influenza Type A Antigen Negative [facility] Comment on above: Negative for Flu A p rotein antigen. Infection due to Flu Acannot be ruled out. Flu A antigen in the sample may bebelow the detection limit of the test. Bedside Influenza Type B Antigen Negative [facility] Comment on above: Negative for Flu B p rotein antigen. Infection due to Flu Bcannot be ruled out. Flu B antigen in the sample may bebelow the detection limit of the test. Urine Bacteria NONE SEEN #/HPF NONE SEEN [facility] Urine Culture Reflexed NO [facility] Urine Microscopic Review YES [facility] Urine Occult Blood Negative NEGATIVE [facility] Urine Other Casts NONE SEEN #/LPF NONE SEEN [facility] Urine Other Crystals None Seen #/HPF None Seen [facility] Urine RBC 0-2 #/HPF 0-2 [facility] Urine Squamous Epithelial Cells RARE #/LPF NONE/RARE [facility] Urine WBC 0-2 #/HPF Abnormal NONE SEEN [facility] Basophils Auto (Bld) [#/Vol] on 09-11-2024 Basophils (Bld) [#/Vol] Automated basophil count 0.0-0.1 [facility] Basophils/100 WBC Auto (Bld) on 09-11-2024 Basophils/100 WBC (Bld) Automated basophil % 0.2-2.0 [facility] Eosinophils/100 WBC Auto (Bl d)on 09-11-2024 Eosinophils/100 WBC (Bld) Automated eosinophil % 0.9-7.0 [facility] Erythrocyte distribution wid th Auto (RBC) [Ratio]on 09-11-2024 Erythrocyte distribution width (RBC) [Ratio] Erythrocyte distribution width [Ratio] by Automated count High 11.0-15.0 [facility] Hematocrit Auto (Bld) [Volum e fraction]on 09-11-2024 Hematocrit (Bld) [Volume fraction] Hematocrit [Volume Fraction] of Blood by Automated count 36.0-48.0 [facility] Hemoglobin [Mass/volume] in Bloodon 09-11-2024 Hemoglobin (Bld) [Mass/Vol] Hemoglobin [Mass/volume] in Blood 12.0-16.0 [facility] Iron binding capacity [Mass/ volume] in Serum or Plasmaon 09-11-2024 Iron binding capacity [Mass/Vol] Iron binding capacity [Mass/volume] in Serum or Plasma 250.0-450. 0 [facility] Iron saturation [Mass Fracti on] in Serum or Plasmaon 09-11-2024 Iron saturation [Mass fraction] Iron saturation [Mass Fraction] in Serum or Plasma [facility] Laboratory - Chemistry and C hemistry - challengeon 09-11-2024 Ferritin [Mass/Vol] 124.0 ng/mL 8.0-252.0 [facility] Iron [Mass/Vol] 61.0 ug/dL 50.0-170.0 [facility] Laboratory - Hematology and Cell countson 09-11-2024 Immature granulocytes/100 WBC (Bld) 0.4 % 0.0-0.5 [facility] Leukocytes [#/volume] correc janell for nucleated erythrocytes in Blood by Automated counon 09-11-2024 WBC corrected for nucl RBC Auto (Bld) [#/Vol] Leukocytes [#/volume] corrected for nucleated erythrocytes in Blood by Automated coun 4.0-11.0 [facility] Lymphocytes Auto (Bld) [#/Vo l]on 09-11-2024 Lymphocytes (Bld) [#/Vol] Lymphocytes [#/volume] in Blood by Automated count 1.2-3.8 [facility] Lymphocytes/100 WBC Auto (Bl d)on 09-11-2024 Lymphocytes/100 WBC (Bld) Lymphocytes/100 leukocytes in Blood by Automated count 20.5-60.0 [facility] MCH Auto (RBC) [Entitic mass ]on 09-11-2024 MCH (RBC) [Entitic mass] MCH [Entitic mass] by Automated count Low 26.7-34.0 [facility] MCHC Auto (RBC) [Mass/Vol]on 09-11-2024 MCHC (RBC) [Mass/Vol] MCHC [Mass/volume] by Automated count 29.9-35.2 [facility] MCV Auto (RBC) [Entitic vol] on 09-11-2024 MCV (RBC) [Entitic vol] MCV [Entitic volume] by Automated count 81.0-99.0 [facility] Monocytes Auto (Bld) [#/Vol] on 09-11-2024 Monocytes (Bld) [#/Vol] Automated blood monocyte count 0.3-0.8 [facility] Monocytes/100 WBC Auto (Bld) on 09-11-2024 Monocytes/100 WBC (Bld) Automated monocyte % 1.7-12.0 [facility] Neutrophils Auto (Bld) [#/Vo l]on 09-11-2024 Neutrophils (Bld) [#/Vol] Neutrophils [#/volume] in Blood by Automated count 1.4-6.5 [facility] Neutrophils/100 WBC Auto (Bl d)on 09-11-2024 Neutrophils/100 WBC (Bld) Automated neutrophil % 43.0-75.0 [facility] No Panel Informationon 09-11 Eosinophils # (Auto) 0.1 10 3/uL 0.0-0.7 [facility] Immature Granulocyte # (Auto) 0.02 10 3/uL 0.00-0.03 [facility] Platelet mean volume Auto (B ld) [Entitic vol]on 09-11-2024 Platelet mean volume (Bld) [Entitic vol] Platelet mean volume [Entitic volume] in Blood by Automated count Low 9.5-13.5 [facility] Platelets Auto (Bld) [#/Vol] on 09-11-2024 Platelets (Bld) [#/Vol] Platelets [#/volume] in Blood by Automated count 150-450 [facility] RBC Auto (Bld) [#/Vol]on RBC (Bld) [#/Vol] Erythrocytes [#/volu me] in Blood by Automated count High 4.20-5.40 [facility] XR hip RT min 2V(w/wo pelvis )*on 08-27-2024 XR hip RT min 2V(w/wo pelvis)* [facility] [address] [place] [address] XRay Report Signed Patient: Nicol Smith MR#: [id number] 9 : 1960 Acct:[id number] Age/Sex: 64 / F ADM Date: 08/27/24 Loc: [facility] Room: Type: [facility] Attending Dr: David Mcfarland II, [...] Magdy Crooks M.D.08/27/2024 4:17 PM Dictation Location: [place] [address] Transcribed By: [facility] 08/27/241616 Dictated By: Magdy Crooks II, MD 08/27/241616 Signed By: 08/27/241616 Normal [facility] Office Visiton 07-25-2024 Follow-up visit [id number] Nicol Smith 1960 F Date Provider Department Center 07/25/2024 3848-ANITA TAFOYA [facility] Family History Problem Relation Age of Onset Diabetes Father Heart failure Father Diabetes Paternal Grandmother Diabetes Paternal Grandfather Family Status - Relation Status Age at Father Paternal Grandmother Paternal Grandfather Level of Service:50061 PA OFFICE/OUTPATIENT ESTABLISHED MOD MDM 30 MIN Normal [facility] Albumin [Mass/volume] in Ser um or Plasmaon 07-15-2024 Albumin [Mass/Vol] 3.7 g/dL 2.9-4.4 [facility] Albumin [Mass/Vol] Albumin [Mass/volume ] in Serum or Plasma 2.9-4.4 [facility] Basophils Auto (Bld) [#/Vol] on 07-15-2024 Basophils (Bld) [#/Vol] 0.1 10 3/uL 0.0-0.1 [facility] Basophils (Bld) [#/Vol] Automated basophil count 0.0-0.1 [facility] Basophils/100 WBC Auto (Bld) on 07-15-2024 Basophils/100 WBC (Bld) 1.5 % 0.2-2.0 [facility] Basophils/100 WBC (Bld) Automated basophil % 0.2-2.0 [facility] Eosinophils/100 WBC Auto (Bl d)on 07-15-2024 Eosinophils/100 WBC (Bld) 2.0 % 0.9-7.0 [facility] Eosinophils/100 WBC (Bld) Automated eosinophil % 0.9-7.0 [facility] Erythrocyte distribution wid th Auto (RBC) [Ratio]on 07-15-2024 Erythrocyte distribution width (RBC) [Ratio] 22.6 % High 11.0-15.0 [facility] Erythrocyte distribution width (RBC) [Ratio] Erythrocyte distribution width [Ratio] by Automated count High 11.0-15.0 [facility] Estimated glomerular filtrat ion rate (GFR) non- Americanon 07-15-2024 GFR/1.73 sq M.predicted among non-blacks MDRD (S/P/Bld) [Vol rate/Area] 59 mL/min/{1.73_m2} Low >=60 mL/min/1.7 3m 2 [facility] GFR/1.73 sq M.predicted among non-blacks MDRD (S/P/Bld) [Vol rate/Area] Estimated glomerular filtration rate (GFR) non- Low >=60 mL/min/1.7 3m 2 [facility] Globulin Calc (S) [Mass/Vol] on 07-15-2024 Globulin (S) [Mass/Vol] 3.9 g/dL [facility] Globulin (S) [Mass/Vol] Serum globulin measurement by calculation (mass/volume) [facility] Hematocrit Auto (Bld) [Volum e fraction]on 07-15-2024 Hematocrit (Bld) [Volume fraction] 38.2 % 36.0-48.0 [facility] Hematocrit (Bld) [Volume fraction] Hematocrit [Volume Fraction] of Blood by Automated count 36.0-48.0 [facility] Hemoglobin [Mass/volume] in Bloodon 07-15-2024 Hemoglobin (Bld) [Mass/Vol] 11.2 g/dL Low 12.0-16.0 [facility] Hemoglobin (Bld) [Mass/Vol] Hemoglobin [Mass/volume] in Blood Low 12.0-16.0 [facility] IgA [Mass/volume] in Serum o r Plasmaon 07-15-2024 IgA [Mass/Vol] 117 mg/dL 87-352 [facility] IgA [Mass/Vol] IgA [Mass/volume] in Serum or Plasma 87-352 [facility] IgG [Mass/volume] in Serum o r Plasmaon 07-15-2024 IgG [Mass/Vol] 938 mg/dL 586-1602 [facility] IgG [Mass/Vol] IgG [Mass/volume] in Serum or Plasma 586-1602 [facility] IgM [Mass/volume] in Serum o r Plasmaon 07-15-2024 IgM [Mass/Vol] 43 mg/dL 26-217 [facility] IgM [Mass/Vol] IgM [Mass/volume] in Serum or Plasma 217 [facility] Iron binding capacity [Mass/ volume] in Serum or Plasmaon 07-15-2024 Iron binding capacity [Mass/Vol] 457.0 ug/dL High 250.0-450. 0 [facility] Iron binding capacity [Mass/Vol] Iron binding capacity [Mass/volume] in Serum or Plasma High 250.0-450. 0 [facility] Iron saturation [Mass Fracti on] in Serum or Plasmaon 07-15-2024 Iron saturation [Mass fraction] 3.7 % [facility] Iron saturation [Mass fraction] Iron saturation [Mass Fraction] in Serum or Plasma [facility] Laboratory - Chemistry and C hemistry - challengeon 07-15-2024 Albumin [Mass/Vol] 3.6 g/dL 3.4-5.0 [facility] ALP [Catalytic activity/Vol] 129 U/L High 46-116 [facility] ALT [Catalytic activity/Vol] 28 U/L 14-59 [facility] AST [Catalytic activity/Vol] 16 U/L 15-37 [facility] Bilirubin [Mass/Vol] 0.3 mg/dL 0.2-1.0 [facility] Calcium [Mass/Vol] 9.4 mg/dL 8.5-10.1 [facility] Chloride [Moles/Vol] 107 mmol/L 98-107 [facility] CO2 [Moles/Vol] 23.5 mmol/L 21.0-32.0 [facility] Cobalamin (Vitamin B12) [Mass/Vol] 619 pg/mL 232-1245 [facility] Comment on above: Performed at: - L [address] [id number] Director: Luis Mukherjee PhD, Phone: [phone] Creatinine [Mass/Vol] 0.96 mg/dL 0.55-1.02 [facility] Ferritin [Mass/Vol] 22.0 ng/mL 8.0-252.0 [facility] GFR/1.73 sq M.predicted MDRD (S/P/Bld) [Vol rate/Area] mL/min/{1.73_m2} >=60 mL/min/1.7 3m 2 [facility] Glucose [Mass/Vol] 170 mg/dL High 74-106 [facility] Iron [Mass/Vol] 17.0 ug/dL Low 50.0-170.0 [facility] LDH [Catalytic activity/Vol] 205 U/L 81-234 [facility] Potassium [Moles/Vol] 4.0 mmol/L 3.5-5.1 [facility] Protein [Mass/Vol] 0.2 g/dL Abnormal Not Observed [facility] Protein [Mass/Vol] 7.5 g/dL 6.4-8.2 [facility] Sodium [Moles/Vol] 143 mmol/L 136-145 [facility] Urea nitrogen [Mass/Vol] 18.0 mg/dL 7.0-18.0 [facility] Urea nitrogen/Creatinine [Mass ratio] 18.8 mg/mg [facility] Laboratory - Hematology and Cell countson 07-15-2024 ESR (Bld) [Velocity] 62 mm/h High <=30 [facility] Immature granulocytes/100 WBC (Bld) 0.2 % 0.0-0.5 [facility] Leukocytes [#/volume] correc janell for nucleated erythrocytes in Blood by Automated counon 07-15-2024 WBC corrected for nucl RBC Auto (Bld) [#/Vol] 5.5 10 3/uL 4.0-11.0 [facility] WBC corrected for nucl RBC Auto (Bld) [#/Vol] Leukocytes [#/volume] corrected for nucleated erythrocytes in Blood by Automated coun 4.0-11.0 [facility] Lymphocytes Auto (Bld) [#/Vo l]on 07-15-2024 Lymphocytes (Bld) [#/Vol] 1.6 10 3/uL 1.2-3.8 [facility] Lymphocytes (Bld) [#/Vol] Lymphocytes [#/volume] in Blood by Automated count 1.2-3.8 [facility] Lymphocytes/100 WBC Auto (Bl d)on 07-15-2024 Lymphocytes/100 WBC (Bld) 28.8 % 20.5-60.0 [facility] Lymphocytes/100 WBC (Bld) Lymphocytes/100 leukocytes in Blood by Automated count 20.5-60.0 [facility] MCH Auto (RBC) [Entitic mass ]on 07-15-2024 MCH (RBC) [Entitic mass] 22.7 pg Low 26.7-34.0 [facility] MCH (RBC) [Entitic mass] MCH [Entitic mass] by Automated count Low 26.7-34.0 [facility] MCHC Auto (RBC) [Mass/Vol]on 07-15-2024 MCHC (RBC) [Mass/Vol] 29.3 g/dL Low 29.9-35.2 [facility] MCHC (RBC) [Mass/Vol] MCHC [Mass/volume] by Automated count Low 29.9-35.2 [facility] MCV Auto (RBC) [Entitic vol] on 07-15-2024 MCV (RBC) [Entitic vol] 77.5 fL Low 81.0-99.0 [facility] MCV (RBC) [Entitic vol] MCV [Entitic volume] by Automated count Low 81.0-99.0 [facility] Monocytes Auto (Bld) [#/Vol] on 07-15-2024 Monocytes (Bld) [#/Vol] 0.3 10 3/uL 0.3-0.8 [facility] Monocytes (Bld) [#/Vol] Automated blood monocyte count 0.3-0.8 [facility] Monocytes/100 WBC Auto (Bld) on 07-15-2024 Monocytes/100 WBC (Bld) 5.9 % 1.7-12.0 [facility] Monocytes/100 WBC (Bld) Automated monocyte % 1.7-12.0 [facility] Neutrophils Auto (Bld) [#/Vo l]on 07-15-2024 Neutrophils (Bld) [#/Vol] 3.4 10 3/uL 1.4-6.5 [facility] Neutrophils (Bld) [#/Vol] Neutrophils [#/volume] in Blood by Automated count 1.4-6.5 [facility] Neutrophils/100 WBC Auto (Bl d)on 07-15-2024 Neutrophils/100 WBC (Bld) 61.6 % 43.0-75.0 [facility] Neutrophils/100 WBC (Bld) Automated neutrophil % 43.0-75.0 [facility] No Panel Informationon 07-15 C-Reactive Protein, Quantitative <0.50 mg/dL <=0.50 [facility] Eosinophils # (Auto) 0.1 10 3/uL 0.0-0.7 [facility] Folate 18.00 ng/mL 8.60-58.90 [facility] Immature Granulocyte # (Auto) 0.01 10 3/uL 0.00-0.03 [facility] Protein Electrophoresis Note Comment . [facility] Comment on above: Protein electrophore sis scan will follow via computer,mail, or wedding transportation driver delivery.Performed at: [facility] [address] [id number] Director: Luis Mukherjee PhD, Phone: [phone] Platelet mean volume Auto (B ld) [Entitic vol]on 07-15-2024 Platelet mean volume (Bld) [Entitic vol] 9.5 fL 9.5-13.5 [facility] Platelet mean volume (Bld) [Entitic vol] Platelet mean volume [Entitic volume] in Blood by Automated count .-. [facility] Platelets Auto (Bld) [#/Vol] on 07-15-2024 Platelets (Bld) [#/Vol] 412 10 3/uL 150-450 [facility] Platelets (Bld) [#/Vol] Platelets [#/volume] in Blood by Automated count 150-450 [facility] Protein [Mass/volume] in Ser um or Plasmaon 07-15-2024 Protein [Mass/Vol] 7.0 g/dL 6.0-8.5 [facility] Protein [Mass/Vol] Protein [Mass/volume ] in Serum or Plasma 6.0-8.5 [facility] RBC Auto (Bld) [#/Vol]on RBC (Bld) [#/Vol] 4.93 10 6/uL 4.20-5.40 [facility] Comment on above: ANISOCYTOSIS 1+ RBC (Bld) [#/Vol] Erythrocytes [#/volu me] in Blood by Automated count .20-5.40 [facility] Comment on above: ANISOCYTOSIS 1+ Reticulocytes/100 RBC Auto ( Bld)on 07-15-2024 Reticulocytes/100 RBC (Bld) 2.69 % 0.60-3.10 [facility] Reticulocytes/100 RBC (Bld) Reticulocyte % auto 0.60-3.10 [facility] Serum globulin measurement ( mass/volume)on 07-15-2024 Globulin (S) [Mass/Vol] 3.3 g/dL 2.2-3.9 [facility] Globulin (S) [Mass/Vol] Serum globulin measurement (mass/volume) 2.2-3.9 [facility] Serum or plasma albumin/glob ulin mass ratioon 07-15-2024 Albumin/Globulin [Mass ratio] 0.9 {ratio} [facility] Albumin/Globulin [Mass ratio] 1.2 {ratio} 0.7-1.7 [facility] Albumin/Globulin [Mass ratio] Serum or plasma albumin/globulin mass ratio 0.7-1.7 [facility] Serum or plasma alpha 1 glob ulin measurement by electrophoresis (mass/volume)on 07-15-2024 Alpha 1 globulin Elph [Mass/Vol] 0.3 g/dL 0.0-0.4 [facility] Alpha 1 globulin Elph [Mass/Vol] Serum or plasma alpha 1 globulin measurement by electrophoresis (mass/volume) 0.0-0.4 [facility] Serum or plasma alpha 2 glob ulin measurement by electrophoresis (mass/volume)on 07-15-2024 Alpha 2 globulin Elph [Mass/Vol] 0.9 g/dL 0.4-1.0 [facility] Alpha 2 globulin Elph [Mass/Vol] Serum or plasma alpha 2 globulin measurement by electrophoresis (mass/volume) 0.4-1.0 [facility] Serum or plasma anion gap de terminationon 07-15-2024 Anion gap [Moles/Vol] 16.5 mmol/L [facility] Anion gap [Moles/Vol] Serum or plasma an ion gap determination [facility] Serum or plasma beta globuli n measurement by electrophoresis (mass/volume)on 07-15-2024 Beta globulin Elph [Mass/Vol] 1.1 g/dL 0.7-1.3 [facility] Beta globulin Elph [Mass/Vol] Serum or plasma beta globulin measurement by electrophoresis (mass/volume) 0.7-1.3 [facility] Serum or plasma gamma globul in measurement by electrophoresis (mass/volume)on 07-15-2024 Gamma globulin Elph [Mass/Vol] 0.9 g/dL 0.4-1.8 [facility] Gamma globulin Elph [Mass/Vol] Serum or plasma gamma globulin measurement by electrophoresis (mass/volume) 0.4-1.8 [facility] Serum or plasma immunoelectr ophoresis interpretationon 07-15-2024 Interpretation IEP [Interp] Comment Abnormal . [facility] Comment on above: Immunofixation shows IgG monoclonal protein with lambdalight chain specificity. Interpretation IEP [Interp] Serum or plasma immunoelectrophoresis interpretation Abnormal . [facility] Comment on above: Immunofixation shows IgG monoclonal protein with lambdalight chain specificity. Activated partial thrombopla stin time (aPTT) in platelet poor plasma by coagulation aon 06-17-2024 aPTT Coag (PPP) [Time] 26.5 s 22.3-36.2 [facility] Basophils Auto (Bld) [#/Vol] on 06-17-2024 Basophils (Bld) [#/Vol] 0.1 10 3/uL 0.0-0.1 [facility] Basophils/100 WBC Auto (Bld) on 06-17-2024 Basophils/100 WBC (Bld) 1.4 % 0.2-2.0 [facility] Cholesterol in LDL Calc [Mas s/Vol]on 06-17-2024 Cholesterol in LDL [Mass/Vol] 72.0 mg/dL [facility] Comment on above: <100 mg/dl [id number] 0-129 mg/dl NEAR OR ABOVE [id number] mg/dl BORDERLINE [id number] mg/dl HIGH>190 mg/dl VERY HIGH Cholesterol in VLDL Calc [Ma ss/Vol]on 06-17-2024 Cholesterol in VLDL [Mass/Vol] 33.4 mg/dL [facility] Eosinophils/100 WBC Auto (Bl d)on 06-17-2024 Eosinophils/100 WBC (Bld) 1.8 % 0.9-7.0 [facility] Erythrocyte distribution wid th Auto (RBC) [Ratio]on 06-17-2024 Erythrocyte distribution width (RBC) [Ratio] 17.7 % High 11.0-15.0 [facility] Hematocrit Auto (Bld) [Volum e fraction]on 06-17-2024 Hematocrit (Bld) [Volume fraction] 33.7 % Low 36.0-48.0 [facility] Hemoglobin [Mass/volume] in Bloodon 06-17-2024 Hemoglobin (Bld) [Mass/Vol] 9.8 g/dL Low 12.0-16.0 [facility] INR in Platelet poor plasma by Coagulation assayon 06-17-2024 INR Coag (PPP) [Relative time] 0.95 {INR} [facility] Comment on above: DESIRED INR:2.0-3.0 CONDITIONS NOT LISTED BELOW2.5-3.5 FOR PROSTHETIC HEART VALVE REPLACEMENT2.5-3.5 RECURRENT THROMBOSIS Laboratory - Chemistry and C hemistry - challengeon 06-17-2024 Cholesterol [Mass/Vol] 171 mg/dL <=200 Fi [facility] Cholesterol in HDL [Mass/Vol] 66 mg/dL High 40-60 [facility] Comment on above: > or =60 mg/dl - LOW CARDIOVASCULAR RISK<40 mg/dl - HIGH CARDIOVASCULAR RISK Free T4 [Mass/Vol] 0.78 ng/dL 0.76-1.46 [facility] Triglyceride [Mass/Vol] 167 mg/dL High <=150 [facility] TSH Qn 6.061 m[IU]/L High 0.358-3.74 0 [facility] Laboratory - Hematology and Cell countson 06-17-2024 Immature granulocytes/100 WBC (Bld) 0.0 % 0.0-0.5 [facility] Leukocytes [#/volume] correc janell for nucleated erythrocytes in Blood by Automated counon 06-17-2024 WBC corrected for nucl RBC Auto (Bld) [#/Vol] 5.0 10 3/uL 4.0-11.0 [facility] Lymphocytes Auto (Bld) [#/Vo l]on 06-17-2024 Lymphocytes (Bld) [#/Vol] 1.9 10 3/uL 1.2-3.8 [facility] Lymphocytes/100 WBC Auto (Bl d)on 06-17-2024 Lymphocytes/100 WBC (Bld) 37.1 % 20.5-60.0 [facility] MCH Auto (RBC) [Entitic mass ]on 06-17-2024 MCH (RBC) [Entitic mass] 21.5 pg Low 26.7-34.0 [facility] MCHC Auto (RBC) [Mass/Vol]on 06-17-2024 MCHC (RBC) [Mass/Vol] 29.1 g/dL Low 29.9-35.2 [facility] MCV Auto (RBC) [Entitic vol] on 06-17-2024 MCV (RBC) [Entitic vol] 74.1 fL Low 81.0-99.0 [facility] Monocytes Auto (Bld) [#/Vol] on 06-17-2024 Monocytes (Bld) [#/Vol] 0.4 10 3/uL 0.3-0.8 [facility] Monocytes/100 WBC Auto (Bld) on 06-17-2024 Monocytes/100 WBC (Bld) 8.0 % 1.7-12.0 [facility] Neutrophils Auto (Bld) [#/Vo l]on 06-17-2024 Neutrophils (Bld) [#/Vol] 2.6 10 3/uL 1.4-6.5 [facility] Neutrophils/100 WBC Auto (Bl d)on 06-17-2024 Neutrophils/100 WBC (Bld) 51.7 % 43.0-75.0 [facility] No Panel Informationon 06-17 Eosinophils # (Auto) 0.1 10 3/uL 0.0-0.7 [facility] Immature Granulocyte # (Auto) 0.00 10 3/uL 0.00-0.03 [facility] Platelet mean volume Auto (B ld) [Entitic vol]on 06-17-2024 Platelet mean volume (Bld) [Entitic vol] 9.2 fL Low 9.5-13.5 [facility] Platelets Auto (Bld) [#/Vol] on 06-17-2024 Platelets (Bld) [#/Vol] 400 10 3/uL 150-450 [facility] Prothrombin time (PT)on 06-01 PT Coag (PPP) [Time] 10.1 s 9.0-11.6 [facility] RBC Auto (Bld) [#/Vol]on RBC (Bld) [#/Vol] 4.55 10 6/uL 4.20-5.40 [facility] Serum or plasma total choles terol/high density lipoprotein (HDL) cholesterol mass bridget 06-17-2024 Cholesterol.total/Chol esterol in HDL [Mass ratio] 2.6 {ratio} [facility] Comment on above: 3.3 - 4.4 LOW RISK4. 4 - 7.1 AVERAGE RISK7.1 - 11.0 MODERATE RISK>11.0 HIGH RISK Estimated glomerular filtrat ion rate (GFR) non- Americanon 01-11-2024 GFR/1.73 sq M.predicted among non-blacks MDRD (S/P/Bld) [Vol rate/Area] mL/min/{1.73_m2} >=60 [facility] Laboratory - Chemistry and C hemistry - challengeon 01-11-2024 Creatinine [Mass/Vol] 0.85 mg/dL 0.55-1.02 [facility] GFR/1.73 sq M.predicted MDRD (S/P/Bld) [Vol rate/Area] mL/min/{1.73_m2} >=60 [facility] XR hip RT min 2V(w/wo pelvis )*on 11-28-2023 XR hip RT min 2V(w/wo pelvis)* [facility] [place] [address] XRay Report Signed Patient: Nicol Smith MR#: [id number] 9 : 1960 Acct:[id number] Age/Sex: 63 / F ADM Date: 11/28/23 Loc: [facility] Room: Type: [facility] Attending Dr: David Mcfarland II, [...] Matamoros Jr., D.O.11/28/2023 1:06 PM Dictation Location: [place] [address] Transcribed By: [facility] 11/28/23 1306 Dictated By: Stalin Matamoros Jr, DO 11/28/23 1305 Signed By: 11/28/23 1306 Normal [facility] XR hip RT min 2V(w/wo pelvis )*on 10-17-2023 XR hip RT min 2V(w/wo pelvis)* [address] [address] XRay Report Signed Patient: Nicol Smith MR#: [id number] 9 : 1960 Acct:[id number] Age/Sex: 63 / F ADM Date: 10/17/23 Loc: [facility] Room: Type: [facility] Attending Dr: David Mcfarland II, [...] Kane Katz M.D.10/17/2023 3:39 PM Dictation Location: [facility] Transcribed By: [facility] 10/17/23 1539 Dictated By: Kane Katz DO 10/17/23 1538 Signed By: 10/17/23 1539 Normal [facility] XR hip RT min 2V(w/wo pelvis)* [email or web address] Other XR hip RT min 2V(w/wo pelvis)* [facility] [address] [place] [email or web address] Other XR hip RT min 2V(w/wo pelvis)* [address] [place] [address] [email or web address] Other XR hip RT min 2V(w/wo pelvis)* [place] [address] [email or web address] Other XR hip RT min 2V(w/wo pelvis)* XRay Report [email or web address] Other XR hip RT min 2V(w/wo pelvis)* Signed [email or web address] Other XR hip RT min 2V(w/wo pelvis)* Patient: Niclo Smith MR#: [id number] [email or web address] Other XR hip RT min 2V(w/wo pelvis)* 9 [email or web address] Other XR hip RT min 2V(w/wo pelvis)* : 1960 Acct:[id number] [email or web address] Other XR hip RT min 2V(w/wo pelvis)* Age/Sex: 63 / F ADM Date: 10/17/23 [email or web address] Other XR hip RT min 2V(w/wo pelvis)* Loc: [facility] Room: Type: [facility] [email or web address] Other XR hip RT min 2V(w/wo pelvis)* Attending Dr: David Mcfarland II, MD [email or web address] Other XR hip RT min 2V(w/wo pelvis)* Copies to: David Mcfarland MD [email or web address] Other XR hip RT min 2V(w/wo pelvis)* Ordering Provider: David Mcfarland MD [email or web address] Other XR hip RT min 2V(w/wo pelvis)* Date of Service: 10/17/23 [email or web address] Other XR hip RT min 2V(w/wo pelvis)* XR/XR hip RT min 2V(w/wo pelvis)*: Aftercare following joint replacement [email or web address] Other XR hip RT min 2V(w/wo pelvis)* surgery;Presence of ri [employer] Other XR hip RT min 2V(w/wo pelvis)* 2 views right hip with single view pelvis plain film [email or web address] Other XR hip RT min 2V(w/wo pelvis)* COMPARISON: 09/03/2023 [employer] Other XR hip RT min 2V(w/wo pelvis)* HISTORY: Status post right total hip arthroplasty [email or web address] Other XR hip RT min 2V(w/wo pelvis)* ACUTE FINDINGS: None [email or web address] Other XR hip RT min 2V(w/wo pelvis)* DEGENERATIVE CHANGE: Unremarkable [email or web address] Other XR hip RT min 2V(w/wo pelvis)* SOFT TISSUE FINDINGS: Unremarkable [email or web address] Other XR hip RT min 2V(w/wo pelvis)* JOINT EFFUSION: None [email or web address] Other XR hip RT min 2V(w/wo pelvis)* POSTOP CHANGES: Stable bilateral hip arthroplasties. [email or web address] Other XR hip RT min 2V(w/wo pelvis)* BONY MINERALIZATION: Adequate [email or web address] Other XR hip RT min 2V(w/wo pelvis)* XR/XR hip RT min 2V(w/wo pelvis)* [email or web address] Other XR hip RT min 2V(w/wo pelvis)* IMPRESSION: Stable right hip arthroplasty. [email or web address] Other XR hip RT min 2V(w/wo pelvis)* Impression dictated by: Kane Katz M.D.10/17/2023 3:39 PM [email or web address] Other XR hip RT min 2V(w/wo pelvis)* Dictation Location: [place] [address] [email or web address] Other XR hip RT min 2V(w/wo pelvis)* Transcribed By: PWS 10/17/23 [facility] [email or web address] Other XR hip RT min 2V(w/wo pelvis)* Dictated By: Kane Katz DO 10/17/23 [facility] [email or web address] Other XR hip RT min 2V(w/wo pelvis)* Signed By: [email or web address] Other XR hip RT min 2V(w/wo pelvis)* 10/17/23 [facility] [email or web address] Other Automated erythrocytes count in urine sediment (number/area)Ordered By: David Mcfarland on 08-28-2023 RBC Auto (Urine sed) [#/Area] 1-2 [HPF] 0-4 [facility] Automated leukocytes count i n urine sediment (number/area)Ordered By: David Mcfarland on 08-28-2023 WBC Auto (Urine sed) [#/Area] 10-19 [HPF] 0-4 [facility] Basophils Auto (Bld) [#/Vol] Ordered By: David Mcfarland on 08-28-2023 Basophils (Bld) [#/Vol] 0.1 10*3/uL 0.0-0.2 [facility] Basophils/100 WBC Auto (Bld) Ordered By: David Mcfarland on 08-28-2023 Basophils/100 WBC (Bld) 1.1 % . [facility] Bilirubin Test strip Ql (U)O rdered By: David Mcfarland on 08-28-2023 Bilirubin Ql (U) Negative Negative [facility] Calcium [Mass/volume] in Ser um or PlasmaOrdered By: David Mcfarland on 08-28-2023 Calcium [Mass/Vol] 9.7 mg/dL 8.6-10.3 [facility] Carbon dioxide, total [Moles /volume] in Serum or PlasmaOrdered By: David Mcfarland on 08-28-2023 CO2 [Moles/Vol] 26.1 mmol/L 21.0-31.0 [facility] Chloride [Moles/volume] in S adela or PlasmaOrdered By: David Mcfarland on 08-28-2023 Chloride [Moles/Vol] 107 mmol/L 98-107 [facility] Color Auto (U)Ordered By: Arleth Mcfarland on 08-28-2023 Color (U) Yellow Yellow [facility] Creatinine [Mass/volume] in Serum or PlasmaOrdered By: David Mcfarland on 08-28-2023 Creatinine [Mass/Vol] 0.96 mg/dL 0.60-1.20 [facility] Eosinophils Auto (Bld) [#/Vo l]Ordered By: David Mcfarland on 08-28-2023 Eosinophils (Bld) [#/Vol] 0.1 10*3/uL 0.0-0.45 [facility] Eosinophils/100 WBC Auto (Bl d)Ordered By: David Mcfarland on 08-28-2023 Eosinophils/100 WBC (Bld) 1.0 % . [facility] Erythrocyte distribution wid th Auto (RBC) [Ratio]Ordered By: David Mcfarland on 08-28-2023 Erythrocyte distribution width (RBC) [Ratio] 17.5 % 11.9-15.3 [facility] Fructosamine [Moles/volume] in Serum or PlasmaOrdered By: David Mcfarland on 08-28-2023 Fructosamine [Moles/Vol] 205 umol/L 0-285 [facility] Comment on above: Published reference interval for apparently healthysubjects between age 20 and 60 is 205 - 285 umol/L and in apoorly controlled diabetic population is 228 - 563 umol/Lwith a mean of 396 umol/L.Performed at: [facility] Director: Luis Mukherjee PhD, Phone: [phone] Glucose [Mass/volume] in Ser um or PlasmaOrdered By: David Mcfarland on 08-28-2023 Glucose [Mass/Vol] 98 mg/dL 70-100 [facility] Comment on above: ADA recommended refe rence rangeRandom Glucose Reference Range is dependent on time and content of last meal. Glucose of more than 200 mg/dL in a nonstressed, ambulatory subject supports the diagnosis of Diabetes Mellitus. Hematocrit Auto (Bld) [Volum e fraction]Ordered By: David Mcfarland on 08-28-2023 Hematocrit (Bld) [Volume fraction] 36.9 % 34.0-46.4 [facility] Hemoglobin [Mass/volume] in BloodOrdered By: David Mcfarland on 08-28-2023 Hemoglobin (Bld) [Mass/Vol] 11.9 g/dL 11.8-15.4 [facility] Ketones Auto test strip (U) [Mass/Vol]Ordered By: David Mcfarland on 08-28-2023 Ketones (U) [Mass/Vol] Negative Negative [facility] Laboratory - UrinalysisOrder ed By: David Mcfarland on 08-28-2023 Hyaline casts LM Ql (Urine sed) 0-8 [LPF] 0-8 [facility] Leukocytes [#/volume] correc janell for nucleated erythrocytes in Blood by Automated counOrdered By: David Mcfarland on 08-28-2023 WBC corrected for nucl RBC Auto (Bld) [#/Vol] 6.4 10*3/uL 3.8-11.6 [facility] Lymphocytes Auto (Bld) [#/Vo l]Ordered By: David Mcfarland on 08-28-2023 Lymphocytes (Bld) [#/Vol] 1.6 10*3/uL 1.00-4.8 [facility] Lymphocytes/100 WBC Auto (Bl d)Ordered By: David Mcfarland on 08-28-2023 Lymphocytes/100 WBC (Bld) 25.3 % . [facility] MCH Auto (RBC) [Entitic mass ]Ordered By: David Mcfarland on 08-28-2023 MCH (RBC) [Entitic mass] 25.0 pg 24.7-34.3 [facility] MCHC Auto (RBC) [Mass/Vol]Or dered By: David Mcfarland on 08-28-2023 MCHC (RBC) [Mass/Vol] 32.1 g/dL 32.0-35.0 [facility] MCV Auto (RBC) [Entitic vol] Ordered By: David Mcfarland on 08-28-2023 MCV (RBC) [Entitic vol] 78.0 fL 80-100 [facility] Monocytes Auto (Bld) [#/Vol] Ordered By: David Mcfarland on 08-28-2023 Monocytes (Bld) [#/Vol] 0.5 10*3/uL 0.0-0.8 [facility] Monocytes/100 WBC Auto (Bld) Ordered By: David Mcfarland on 08-28-2023 Monocytes/100 WBC (Bld) 7.6 % . [facility] Neutrophils Auto (Bld) [#/Vo l]Ordered By: David Mcfarland on 08-28-2023 Neutrophils (Bld) [#/Vol] 4.2 10*3/uL 1.8-7.7 [facility] Neutrophils/100 WBC Auto (Bl d)Ordered By: David Mcfarland on 08-28-2023 Neutrophils/100 WBC (Bld) 65.0 % . [facility] Nitrite Test strip Ql (U)Ord ered By: David Mcfarland on 08-28-2023 Nitrite Ql (U) Negative Negative [facility] No Panel InformationOrdered By: David Mcfarland on 08-28-2023 Estimated GFR (CKD-EPI) > 60.0 mL/Min [facility] Creatinine Clearance (Chem N/A [facility] Nucleated erythrocytes [Pres ence] in Blood by Automated countOrdered By: David Mcfarland on 08-28-2023 Nucleated RBC Auto Ql (Bld) 0.1 /100{WBC} 0-0.5 [facility] Platelet mean volume Auto (B ld) [Entitic vol]Ordered By: David Mcfarland on 08-28-2023 Platelet mean volume (Bld) [Entitic vol] 8.0 fL 6.3-10.7 [facility] Platelets Auto (Bld) [#/Vol] Ordered By: David Mcfarland on 08-28-2023 Platelets (Bld) [#/Vol] 387 10*3/uL 150-450 [facility] Potassium [Moles/volume] in Serum or PlasmaOrdered By: David Mcfarland on 08-28-2023 Potassium [Moles/Vol] 4.2 mmol/L 3.5-5.1 [facility] Protein Auto test strip (U) [Mass/Vol]Ordered By: David Mcfarland on 08-28-2023 Protein (U) [Mass/Vol] Negative Negative [facility] RBC Auto (Bld) [#/Vol]Ordere d By: David Mcfarland on 08-28-2023 RBC (Bld) [#/Vol] 4.74 10*6/uL 3.60-5.00 [facility] Serum or plasma anion gap de terminationOrdered By: David Mcfarland on 08-28-2023 Anion gap [Moles/Vol] 11.1 mmol/L 6.0-15.0 [facility] Sodium [Moles/volume] in Ser um or PlasmaOrdered By: David Mcfarland on 08-28-2023 Sodium [Moles/Vol] 140 mmol/L 136-145 [facility] Specific gravity Auto test s trip (U) [Rel density]Ordered By: David Mcfarland on 08-28-2023 Specific gravity (U) [Rel density] 1.020 1.001-1.03 0 [facility] Squamous epithelial cells de tection in urine sediment by light microscopyOrdered By: David Mcfarland on 08-28-2023 Epithelial cells.squamous LM Ql (Urine sed) 3-4 [HPF] 0-2 [facility] Urea nitrogen [Mass/volume] in Serum or PlasmaOrdered By: David Mcfarland on 08-28-2023 Urea nitrogen [Mass/Vol] 17 mg/dL 7-25 [facility] Urine bacteria detection by automated methodOrdered By: David Mcfarland on 08-28-2023 Bacteria Auto Ql (U) None seen None Seen [facility] Urine clarity by refractomet ry automatedOrdered By: David Mcfarland on 08-28-2023 Clarity Refractometry automated (U) Clear Clear [facility] Urine culture routineOrdered By: David Mcfarland on 08-28-2023 Bacteria identified Cx Nom (U) 2 Days [facility] Urine glucose measurement by automated test strip (mass/volume)Ordered By: David Mcfarland on 08-28-2023 Glucose Auto test strip (U) [Mass/Vol] Normal mg/dL Normal [facility] Urine hemoglobin detection b y automated test stripOrdered By: David Mcfarland on 08-28-2023 Hemoglobin Auto test strip Ql (U) Negative Negative [facility] Urine leukocyte esterase det ection by automated test stripOrdered By: David Mcfarland on 08-28-2023 Leukocyte esterase Auto test strip Ql (U) 3+ Negative [facility] Urobilinogen Auto test strip (U) [Mass/Vol]Ordered By: David Mcfarland on 08-28-2023 Urobilinogen (U) [Mass/Vol] Normal mg/dL Normal [facility] WBC Auto (Bld) [#/Vol]Ordere d By: David Mcfarland on 08-28-2023 WBC (Bld) [#/Vol] 6.4 10*3/uL 3.8-11.6 [facility] pH Auto test strip (U)Ordere d By: David Mcfarland on 08-28-2023 pH (U) 5.5 [pH] 5.0-9.0 [facility] TSHon 01-19-2023 TSH 5.502 uIU/mL Critically high 0.358-3.74 0 [facility] Comment on above: Performed By: #### T SH ####[facility] [address] [place] [address]Dr. Darrick Cao GTT 2 HRon 12-12-2022 Glucose [Mass/Vol] 117 mg/dL Critically high 74-106 T [facility] Comment on above: Performed By: #### G TT2 ####[facility] [address] [place] [address]Dr. Darrick Cao Glucose [Mass/Vol] 227 mg/dL Normal [facility] Comment on above: Performed By: #### G TT2 ####[facility] [address] [place] [address]Dr. Darrick Cao Glucose [Mass/Vol] 121 mg/dL Normal [facility] Comment on above: Performed By: #### G TT2 ####[facility] [address] [place] [id number]. Darrick Cao TSHon 12-12-2022 TSH 6.852 uIU/mL Critically high 0.358-3.74 0 [facility] Comment on above: Performed By: #### P OCGLUC #### [facility] [address] [place], [place] [address] Dr. Darrick Cao Outside Colonoscopyon 2022 Outside Colonoscopy [id number]#1.00CD:12 7 Normal [facility] Reminderson 12-07-2022 Reminders - From: Yu Waters LPN To: GSN - Clinical; Sent: 12/07/2022 08:47:38 EST Show up: 11/08/2032 07:00:00 EST Subject: colonoscopy recall Due Date/Time: 12/06/2032 07:00:00 EST Reminder/Recall Patient is due for screening colonoscopy 12/06/2032. [facility] Consent for Procedure/Surger yon 11-09-2022 Consent for Procedure/Surgery [id number]#1.00CD:[address] [facility] Consent for Procedure/Surgery [id number]#[id number]:[address] [facility] Facesheeton 11-09-2022 Facesheet [id number]#1.00CD:[address] [facility] Ambulatory Visit Summaryon 0 11-08-2022 Ambulatory Visit [...] food Screening for malignant neoplasm of colon [facility] MG MAMM SCREEN 3D BONNIE CADon 11-03-2022 MG MAMM SCREEN 3D BONNIE CAD Patient: NICOL SMITH Exam Date: 11/03/2022 : 1960 Gender:F Ordering : DR FRIEDA LOCKE . Admission #: [id number] Family : Order #: [id number] CLICK HERE TO VIEW EXAM RADIOLOGY REPORT [...] uterine cancer at age 52. LOCATION: [facility] BREAST COMPOSITION: Scattered areas [...] Kelly MD on 11/03/2022 at 11:04 Normal [facility] XR DEXA BONE DENSITYon 11-03 XR [...] by: ARIELA SCHWAB Date: 2022-11-03 11:11 Normal [facility] Comprehensive Metabolic Pane yuli 10-30-2022 Urea nitrogen [Mass/Vol] 20 mg/dL [email or web address] Other Comprehensive Metabolic Panel [email or web address] Other Comprehensive Metabolic Panel >60 [email or web address] Other Comprehensive Metabolic Panel 4.2 [email or web address] Other Albumin [Mass/Vol] 3.7 g/dL Normal 3.4-5.0 [email or web address] Other Comment on above: Performed By: #### T SH, CMP, LIPID ####[facility] [address] [place] [address]Dr. Darrick Cao Albumin/Globulin [Mass ratio] 0.9 {ratio} Normal [email or web address] Other Comment on above: Performed By: #### T SH, CMP, LIPID ####[facility] [address] [place] [address]Dr. Darrick Cao ALP [Catalytic activity/Vol] 112 U/L Normal 46-116 [facility] [employer] Other Comment on above: Performed By: #### T SH, CMP, LIPID ####[facility] [address]ryg[address] [place] [address]Dr. Darrick Cao ALT [Catalytic activity/Vol] 34 U/L Normal 14-59 [facility] [employer] Other Comment on above: Performed By: #### T SH, CMP, LIPID ####[facility] [address]qupcn[address] [place] [address]Dr. Darrick Cao AST [Catalytic activity/Vol] 17 U/L Normal 15-37 [facility] [employer] Other Comment on above: Performed By: #### T SH, CMP, LIPID ####[facility] Ogtl[address] [place], [place] [address]Dr. Darrick Cao Bilirubin [Mass/Vol] 0.4 mg/dL Normal 0.2-1.0 [facility] [employer] Other Comment on above: Performed By: #### T SH, CMP, LIPID ####[facility] [address] [place] [address]Dr. Darrick Cao Calcium [Mass/Vol] 9.2 mg/dL Normal 8.5-10.1 [facility] [employer] Other Comment on above: Performed By: #### T SH, CMP, LIPID ####[facility] [address] [place], [place] [address]Dr. Darrick Cao Chloride [Moles/Vol] 105 mmol/L Normal 98-107 [facility] [employer] Other Comment on above: Performed By: #### T SH, CMP, LIPID ####[facility] [address] [place], [place] [address]Dr. Darrikc Cao CO2 [Moles/Vol] 27.0 mmol/L Normal 21.0-32.0 [facility] [employer] Other Comment on above: Performed By: #### T SH, CMP, LIPID ####[facility] [address] [place] [address]Dr. Darrick Cao Creatinine [Mass/Vol] 0.86 mg/dL Normal 0.55-1.02 [facility] [employer] Other Comment on above: Performed By: #### T SH, CMP, LIPID ####[facility] [address] [place] [address]Dr. Darrick Cao Glucose [Mass/Vol] 114 mg/dL Critically high 74-106 [facility] [employer] Other Comment on above: Performed By: #### T JASON, CMP, LIPID ####[facility] [address] [place], [place] [address]Dr. Darrick Cao Potassium [Moles/Vol] 3.9 mmol/L Normal 3.5-5.1 [facility] [employer] Other Comment on above: Performed By: #### T JASON, CMP, LIPID ####[facility] [address] [place], [place] [address]Dr. Darrick Cao Protein [Mass/Vol] 7.9 g/dL Normal 6.4-8.2 [facility] [employer] Other Comment on above: Performed By: #### T JASON, CMP, LIPID ####[facility] Mc[address]rr[address] [place], [place] [address]Dr. Darrick Cao Sodium [Moles/Vol] 143 mmol/L Normal 136-145 [facility] [employer] Other Comment on above: Performed By: #### T SH, CMP, LIPID ####[facility] [address] [place], [place] [address]Dr. Darrick Cao FREE T4on 10-30-2022 Free T4 [Mass/Vol] 0.77 ng/dL Normal 0.76-1.46 [facility] Comment on above: Performed By: #### F T4 ####[facility] [address] [place] [phone]. Darrick Cao LIPID PROFILEon 10-30-2022 CHOL-HDL RATIO NORM SEE BELOW Normal [facility] Comment on above: Result Comment: 3.3 - 4.4 LOW RISK 4.4 - 7.1 AVERAGE RISK 7.1 - 11.0 MODERATE RISK >11.0 HIGH RISK Performed By: #### T SH, CMP, LIPID ####[facility] [address]ot[address] [place] [phone]. Darrick Cao Cholesterol in LDL [Mass/Vol] 84.6 mg/dL Normal [facility] Comment on above: Performed By: #### T SH, CMP, LIPID ####[facility] [address]se[address] [place] [address]Dr. Darrick Cao HDL NORMAL > or = 60 mg/dl - LO W CARDIOVASCULAR RISK <40 mg/dl - HIGH CARDIOVASCULAR RISK Normal [facility] Comment on above: Performed By: #### T SH, CMP, LIPID ####[facility] [address] [place] [address]Dr. Darrick Cao LDL CALC NORMAL SEE BELOW Normal [facility] Comment on above: Result Comment: <100 mg/dl OPTIMAL 100 - 129 mg/dl NEAR OR ABOVE OPTIMAL 130 - 159 mg/dl BORDERLINE HIGH 160 - 189 mg/dl HIGH >190 mg/dl VERY HIGH Performed By: #### T SH, CMP, LIPID ####[facility] [address] [place] [phone]. Darrick Cao Triglyceride [Mass/Vol] 222 mg/dL Critically high <=150 [facility] Comment on above: Performed By: #### T SH, CMP, LIPID ####[facility] [address] [place] [phone]. Darrick Cao VLDL CALC 44.4 mg/dL Normal [facility] Comment on above: Performed By: #### T SH, CMP, LIPID ####[facility] [address] [place] [phone]. Darrick Cao Lipid Panelon 10-30-2022 Cholesterol in LDL Elph Qn 84.6 [facility] [employer] Other Lipid Panel 222 [facility] [employer] Other Lipid Panel 44.4 [facility] [employer] Other Cholesterol [Mass/Vol] 185 mg/dL Normal <=200 [facility] [employer] Other Comment on above: Performed By: #### T SH, CMP, LIPID ####[facility] [address] [place] [phone] Cao Cholesterol in HDL [Mass/Vol] 56 mg/dL Normal 40-60 [facility] [employer] Other Comment on above: Performed By: #### T SH, CMP, LIPID ####[facility] [address] [place] [address]Dr. Darrick Cao Cholesterol.total/Chol esterol in HDL [Mass ratio] 3.3 {ratio} Normal [facility] [employer] Other Comment on above: Performed By: #### T SH, CMP, LIPID ####[facility] [address] [place] [phone] Cao PROF 14(COMP METB)on 023 Anion gap [Moles/Vol] 14.9 mmol/L Normal [facility] Comment on above: Performed By: #### T SH, CMP, LIPID ####[facility] [address] [place] [phone] Cao EGFR-AF ALBANIAN >60 Normal >=60 [facility] Comment on above: Performed By: #### T SH, CMP, LIPID ####[facility] [address] [place] [phone] Cao EGFR-NON AF ALBANIAN >60 Normal >=60 [facility] Comment on above: Performed By: #### T SH, CMP, LIPID ####[facility] [address] [place] [phone] Cao Globulin (S) [Mass/Vol] 4.2 g/dL Normal [facility] Comment on above: Performed By: #### T SH, CMP, LIPID ####[facility] [address]mbotq[address] [place] [phone]. Darrick Cao Urea nitrogen [Mass/Vol] 20.0 mg/dL Critically high 7.0-18.0 [facility] Comment on above: Performed By: #### T SH, CMP, LIPID ####[facility] [address] [place] [phone] Cao Urea nitrogen/Creatinine [Mass ratio] 23.3 mg/mg Normal [facility] Comment on above: Performed By: #### T JASON, CMP, LIPID ####[facility] [address] [place] [phone] Cao TSHon 10-30-2022 TSH 6.415 uIU/mL Critically high 0.358-3.74 0 [facility] Comment on above: Performed By: #### T JASON CMP, LIPID ####[facility] [address] [place] [phone]. Darrick Cao Thyroid Stim Hormone w/Rflxo n 10-30-2022 Thyroid Stim Hormone w/Rflx 6.415 [email or web address] Other VITAMIN B12on 10-30-2022 Cobalamin (Vitamin B12) [Mass/Vol] 664.0 pg/mL Normal 193.0-986. 0 [facility] Comment on above: Performed By: #### V ITB12 #### [facility] [address] [place] [address] [address] Darrick Cao Vitamin B12on 10-30-2022 Cobalamin (Vitamin B12) [Mass/Vol] 664 pg/mL [email or web address] Other Automated erythrocytes count in urine sediment (number/area)Ordered By: Waqas Pierce on 10-23-2022 RBC Auto (Urine sed) [#/Area] 0-1 [HPF] 0-4 [facility] Automated leukocytes count i n urine sediment (number/area)Ordered By: Waqas Pierce on 10-23-2022 WBC Auto (Urine sed) [#/Area] 10-19 [HPF] 0-4 [facility] Bilirubin Test strip Ql (U)O rdered By: Waqas Pierce on 10-23-2022 Bilirubin Ql (U) Negative Negative [facility] Color Auto (U)Ordered By: Shay Pierce on 10-23-2022 Color (U) Yellow Yellow [facility] Ketones Auto test strip (U) [Mass/Vol]Ordered By: Waqas Pierce on 10-23-2022 Ketones (U) [Mass/Vol] Negative Negative [facility] Laboratory - UrinalysisOrder ed By: Waqas Pierce on 10-23-2022 Hyaline casts LM Ql (Urine sed) 0-8 [LPF] 0-8 [facility] Nitrite Test strip Ql (U)Ord ered By: Waqas Pierce on 10-23-2022 Nitrite Ql (U) Negative Negative [facility] Protein Auto test strip (U) [Mass/Vol]Ordered By: Waqas Pierce on 10-23-2022 Protein (U) [Mass/Vol] Negative Negative [facility] Specific gravity Auto test s trip (U) [Rel density]Ordered By: Waqas Pierce on 10-23-2022 Specific gravity (U) [Rel density] 1.016 1.001-1.03 0 [facility] Squamous epithelial cells de tection in urine sediment by light microscopyOrdered By: Waqas Pierce on 10-23-2022 Epithelial cells.squamous LM Ql (Urine sed) 5-9 [HPF] 0-2 [facility] Urine Cultureon 10-23-2022 Bacteria identified Cx Nom (U) [email or web address] Other Urine bacteria detection by automated methodOrdered By: Waqas Pierce on 10-23-2022 Bacteria Auto Ql (U) None seen None Seen [facility] Urine clarity by refractomet ry automatedOrdered By: Waqas Pierce on 10-23-2022 Clarity Refractometry automated (U) Clear Clear [facility] Urine glucose measurement by automated test strip (mass/volume)Ordered By: Waqas Pierce on 10-23-2022 Glucose Auto test strip (U) [Mass/Vol] Normal mg/dL Normal [facility] Urine hemoglobin detection b y automated test stripOrdered By: Waqas Pierce on 10-23-2022 Hemoglobin Auto test strip Ql (U) Negative Negative [facility] Urine leukocyte esterase det ection by automated test stripOrdered By: Waqas Pierce on 10-23-2022 Leukocyte esterase Auto test strip Ql (U) 3+ Negative [facility] Urobilinogen Auto test strip (U) [Mass/Vol]Ordered By: Waqas Pierce on 10-23-2022 Urobilinogen (U) [Mass/Vol] Normal mg/dL Normal [facility] pH Auto test strip (U)Ordere d By: Waqas Pierce on 10-23-2022 pH (U) 6.0 [pH] 5.0-9.0 [facility] A1C HEMOGLOBINon 10-13-2022 HbA1c (Bld) [Mass fraction] 5.9 % [email or web address] Other HbA1c (Bld) [Mass fraction]o n 10-13-2022 A1C HEMOGLOBIN [employer] Other XR FOOT LT MIN 3 VIEWSon [...] by: ALEX RYAN Date: 2022-09-20 16:40 Normal [facility] XR LSPINE 2_3 VIEWSon 2021 XR LSPINE 2_3 VIEWS EXAMINATION: XR LSPI NE 2_3 VIEWS HISTORY: Low back pain COMPARISON: 09/26/2019 FINDINGS: BONES: Mild dextrocurvature. Moderate to severe spondylosis and facet osteoarthropathy DISC SPACES: Multilevel disc space narrowing most significant at L5-S1 PARASPINOUS: Negative. No paraspinous abnormality is seen. OTHER: Severe right hip osteoarthropathy with oxzo-ec-gcpq articulation. Left hip arthroplasty IMPRESSION: Moderate to severe degenerative changes Electronically authenticated by: SHAWNEE KELLY Date: 2022-08-20 11:47 Normal [facility] PAP ACOG PANEL 2: 30 to 65on 06-13-2022 . . Normal [facility] Comment on above: Result Comment: Perf ormed at: WB Performed By: #### [id number] ####[facility] [address] [place] [address]DrMiguel Cao Age Gdln ACOG Testing 30-65 Normal [facility] Comment on above: Performed By: #### [id number] ####[facility] [address] [place], [place] [address]DrMiguel Cao DIAGNOSIS: Comment Normal [facility] Comment on above: Result Comment: NEGA TIVE FOR INTRAEPITHELIAL LESION OR MALIGNANCY. THIS SPECIMEN WAS RESCREENED PART OF OUR POLE SANDER OPERATOR PROGRAM. Performed at: WB Performed By: #### 4 [id number] ####[facility] [address] [place], [place] [address]DrMiguel Cao HPV Aptima Negative Normal Negative [facility] Comment on above: Result Comment: This nucleic acid amplification test detects fourteen high-risk HPV types (16,18,31,33,35,39,45,51,52,56,58,59,66,68) without differentiation. Performed at: =G Performed By: #### 4 [id number] ####[facility] [address] [place] [address]DrMiguel Cao Methodology: Comment Normal [facility] Comment on above: Result Comment: This liquid based ThinPrep(R) pap test was screened with the use of an image guided system. Performed at: WB Performed By: #### 4 [id number] ####[facility] [address] [place] [address]DrMiguel Cao Note: Comment [facility] Comment on above: Result Comment: The Pap smear is a screening test designed to aid in the detection of premalignant and malignant conditions of the uterine cervix. It is not a diagnostic procedure and should not be used as the sole means of detecting cervical cancer. Both false-positive and false-negative reports do occur. . Performed at: WB Performed By: #### [id number] ####[facility] [address] [place] [address]Dr. Darrick Cao Performed by: Comment Normal [facility] Comment on above: Result Comment: Solange Ann, Flamer After Lasting (ASCP) Performed at: WB Performed By: #### [id number] ####[facility] [address] [place] [address]Dr. Darrick Cao QC reviewed by: Comment Normal [facility] Comment on above: Result Comment: Navi Rush, Supervisory Flamer After Lasting (ASCP) Performed at: WB Performed By: #### 4 [id number] ####[facility] [address] [place] [phone]. Darrick Cao Specimen adequacy: Comment Normal [facility] Comment on above: Result Comment: Sati sfactory for evaluation. Endocervical and/or squamous metaplastic cells (endocervical component) are present. Performed at: WB Performed By: #### [id number] ####[facility] [address] [place] [address]Dr. Darrick Cao US PELVIS AND TRANSVAGon US [...] ARIELA SCHWAB Date: 2022-06-13 14:50 Normal [facility] ACID FAST SMEAR AND CXon Acid Fast Culture Negative Normal [facility] Comment on above: Result Comment: No a liliya fast bacilli isolated after 6 weeks. Performed By: #### A FB ####[facility] [address] [place] [address]Dr. Darrick Cao Acid Fast Smear Negative Normal [facility] Comment on above: Performed By: #### A FB ####[facility] [address] [place] [address]DrMiguel Cao AF[employer] Specimen Processing Tissue Grinding Normal [facility] Comment on above: Performed By: #### A FB ####[facility] [address] [place], [place] [address]DrMiguel Cao FUNGAL CULTUREon 05-23-2022 Fungus (Mycology) Culture Final report Normal [facility] Comment on above: Performed By: #### C XFUN ####[facility] [address] [place], [place] [address]Dr. Darrick Cao Fungus Stain Final report Normal [facility] Comment on above: Performed By: #### C XFUN ####[facility] [address] [place] [address]Dr. Darrick Cao Result 1 Comment Normal [facility] Comment on above: Result Comment: MYAE/ Calcofluor preparation: no fungus observed. Performed By: #### C XFUN ####[facility] [address] [place] [address]Dr. Darrick Cao Result Comment: No y east or mold isolated after 4 weeks. WOUND CULTUREon 04-28-2022 Bacteria identified Aer cx Nom (Unsp spec) Final report Normal [facility] Comment on above: Performed By: #### C XWND #### [facility] [address] [place] [address] [address] Darrick Cao Result 1 Comment Normal [facility] Comment on above: Result Comment: No g rowth in 36 - 48 hours. Performed By: #### C XWND #### [facility] [address] [place] [address] [address] Darrick Cao CULTURE WOUNDon 04-26-2022 CULTURE [...] S F Vancomycin 1 S F Normal [facility] Comment on above: Performed By: #### W OUNDCX ####[facility] [address] [place] [address]Dr. Darrick Cao CBC AUTO DIFFon 04-25-2022 BASO # 0.0 103/ul Normal 0.0-0.1 [facility] Comment on above: Performed By: #### C XWND #### [facility] [address] [place] [address] [address] Darrick Cao Basophils/100 WBC (Bld) 0.5 % Normal 0.2-2.0 [facility] Comment on above: Performed By: #### C XWND #### [facility] [address] [place] [address] [address] Darrick Cao EO # 0.1 103/ul Normal 0.0-0.7 [facility] Comment on above: Performed By: #### C XWND #### [facility] [address] [place] [address] [address] Darrick Cao Eosinophils/100 WBC (Bld) 1.1 % Normal 0.9-7.0 [facility] Comment on above: Performed By: #### C XWND #### [facility] [address] [place] [address] Dr. Darrick Cao Erythrocyte distribution width (RBC) [Ratio] 15.8 % Critically high 11.0-15.0 [facility] Comment on above: Performed By: #### C XWND #### [facility] [address] [place] [address] Dr. Darrick Cao Hematocrit (Bld) [Volume fraction] 31.7 % Critically low 36.0-48.0 [facility] Comment on above: Performed By: #### C XWND #### [facility] [address] [place] [address] Dr. Darrick Cao Hemoglobin (Bld) [Mass/Vol] 10.1 g/dL Critically low 12.0-16.0 [facility] Comment on above: Performed By: #### C XWND #### [facility] [address] [place] [address] Dr. Darrick Cao IG # 0.02 10e3/ul Normal 0.00-0.03 [facility] Comment on above: Performed By: #### C XWND #### [facility] [address] [place] [address] Dr. Darrick Cao IG % 0.3 % Normal 0.0-0.5 [facility] Comment on above: Performed By: #### C XWND #### [facility] [address] [place] [address] Dr. Darrick Cao LYMPH # 1.8 103/ul Normal 1.2-3.8 [facility] Comment on above: Performed By: #### C XWND #### [facility] [address] [place] [address] Dr. Darrick Cao Lymphocytes/100 WBC (Bld) 24.3 % Normal 20.5-60.0 [facility] Comment on above: Performed By: #### C XWND #### [facility] [address] [place] [address] Dr. Darrick Cao MANUAL DIFF REQ NO Normal [facility] Comment on above: Performed By: #### C XWND #### [facility] [address] [place] [address] Dr. Darrick Cao MCH (RBC) [Entitic mass] 28.0 pg Normal 26.7-34.0 [facility] Comment on above: Performed By: #### C XWND #### [facility] [address] [place] [address] Dr. Darrick Cao MCHC (RBC) [Mass/Vol] 31.9 g/dL Normal 29.9-35.2 [facility] Comment on above: Performed By: #### C XWND #### [facility] [address] [place] [address] Dr. Darrick Cao MCV (RBC) [Entitic vol] 87.8 fL Normal 81.0-99.0 [facility] Comment on above: Performed By: #### C XWND #### [facility] [address] [place] [address] Dr. Darrick Cao MONO # 0.5 103/ul Normal 0.3-0.8 [facility] Comment on above: Performed By: #### C XWND #### [facility] [address] [place] [address] Dr. Darrick Cao Monocytes/100 WBC (Bld) 7.2 % Normal 1.7-12.0 [facility] Comment on above: Performed By: #### C XWND #### [facility] [address] [place] [address] Dr. Darrick Cao NEUT # 5.0 103/ul Normal 1.4-6.5 [facility] Comment on above: Performed By: #### C XWND #### [facility] [address] [place] [address] Dr. Darrick Cao Neutrophils/100 WBC (Bld) 66.6 % Normal 43.0-75.0 [facility] Comment on above: Performed By: #### C XWND #### [facility] [address] [place] [address] Dr. Darrick Cao Platelet mean volume (Bld) [Entitic vol] 9.6 fL Normal 9.5-13.5 [facility] Comment on above: Performed By: #### C XWND #### [facility] [address] [place] [address] Dr. Darrick Cao PLT 295 103/ul Normal 150-450 [facility] Comment on above: Performed By: #### C XWND #### [facility] [address] [place] [address] [address] Darrick Cao RBC 3.61 106/ul Critically low 4.20-5.[address] [facility] Comment on above: Performed By: #### C XWND #### [facility] [address] [place] [address] [address] Darrick Cao WBC 7.5 103/ul Normal 4.0-11.0 [facility] Comment on above: Performed By: #### C XWND #### [facility] [address] [place] [address] [address] Darrick Cao ER URINE PROFILEon 2 Bilirubin Ql (U) Negative Normal NEGATIVE [facility] Comment on above: Performed By: #### U MICRO, ERUR ####[facility] [address] [place] [address]Dr. Darrick Cao Clarity (U) CLEAR Normal CLEAR [facility] Comment on above: Performed By: #### U MICRO, ERUR ####[facility] [address] [place] [address]Dr. Darrick Cao Color (U) LT. YELLOW Normal YELLOW [facility] Comment on above: Performed By: #### U MICRO, ERUR ####[facility] [address] [place] [address]DrMiguel YODERD A micrscopic examina tion will be performed if indicated. Normal [facility] Comment on above: Performed By: #### U MICRO, ERUR ####[facility] [address] [place] [address]DrMiguel Cao Glucose Ql (U) Negative Normal NEGATIVE [facility] Comment on above: Performed By: #### U MICRO, ERUR ####[facility] [address] [place] [address]Dr. Darrick Cao Hemoglobin Ql (U) SMALL Abnormal NEGATIVE [facility] Comment on above: Performed By: #### U MICRO, ERUR ####[facility] [address] [place] [address]Dr. Darrick Cao Ketones Ql (U) Negative Normal NEGATIVE [facility] [facility] Comment on above: Performed By: #### U MICRO, ERUR ####[facility] [address] [place] [address]Dr. Darrick Cao LEUKOCYTES Negative Normal NEGATIVE [facility] Comment on above: Performed By: #### U MICRO, ERUR ####[facility] [address] [address]Dr. Darrick Cao Nitrite Ql (U) Negative Normal NEGATIVE [facility] Comment on above: Performed By: #### U MICRO, ERUR ####[facility] [address] [place], [place] [address]Dr. Darrick Cao pH (U) 6.0 [pH] Normal 5-9 [facility] Comment on above: Performed By: #### U MICRO, ERUR ####[facility] [address] [place], [place] [address]Dr. Darrick Cao SPEC GRAVITY 1.020 Normal 1.005-<=1. 025 [facility] Comment on above: Performed By: #### U MICRO, ERUR ####[facility] [address] [place], [place] [address]Dr. Darrick Cao UA PROTEIN Negative Normal NEGATIVE/ TRACE [facility] Comment on above: Performed By: #### U MICRO, ERUR ####[facility] [address] [place], [place] [address]Dr. Darrick Cao UR MICRO IND INDICATED Normal [facility] Comment on above: Performed By: #### U MICRO, ERUR ####[facility] [address] [place], [place] [address]Dr. Darrick Cao Urobilinogen Qn (U) 0.2 {Larissa'U}/dL Normal 0.2 - 1. 0 [facility] Comment on above: Performed By: #### U MICRO, ERUR ####[facility] [address] [place], [place] [address]Dr. Darrick Cao POINT OF CARE GLUCOSEon 04-01 Glucose [Mass/Vol] 118 mg/dL Critically high 74-106 [facility] Comment on above: Performed By: #### P OCGLUC ####[facility] [address] [place] [address]Dr. Darrick Cao PROF 14(COMP METB)on 022 Albumin [Mass/Vol] 2.9 g/dL Critically low 3.4-5.0 [facility] Comment on above: Performed By: #### P OCGLUC #### [facility] [address] [address] [address] Darrick Cao Albumin/Globulin [Mass ratio] 0.8 {ratio} Normal [facility] Comment on above: Performed By: #### P OCGLUC #### [facility] [address] [address] [address] Darrick Cao ALP [Catalytic activity/Vol] 113 U/L Normal 46-116 [facility] Comment on above: Performed By: #### P OCGLUC #### [facility] [address] [address] [address] Darrick Cao ALT [Catalytic activity/Vol] 56 U/L Normal 14-59 [facility] Comment on above: Performed By: #### P OCGLUC #### [facility] [address] [address] [address] Darrick Cao Anion gap [Moles/Vol] 8.8 mmol/L Normal [facility] Comment on above: Performed By: #### P OCGLUC #### [facility] [address] [address] [address] Darrick Cao AST [Catalytic activity/Vol] 30 U/L Normal 15-37 [facility] Comment on above: Performed By: #### P OCGLUC #### [facility] [address] [address] [address] Darrick Cao Bilirubin [Mass/Vol] 0.3 mg/dL Normal 0.2-1.0 [facility] Comment on above: Performed By: #### P OCGLUC #### [facility] [address] [address] [address] Darrick Cao Calcium [Mass/Vol] 8.6 mg/dL Normal 8.5-10.1 [facility] Comment on above: Performed By: #### P OCGLUC #### [facility] [address] [address] [address] Darrick Cao Chloride [Moles/Vol] 105 mmol/L Normal 98-107 [facility] Comment on above: Performed By: #### P OCGLUC #### [facility] [address] [address] [address] Darrick Cao CO2 [Moles/Vol] 30.4 mmol/L Normal 21.0-32.0 [facility] Comment on above: Performed By: #### P OCGLUC #### [facility] [address] [place] [address] Dr. Darrick Cao Creatinine [Mass/Vol] 0.82 mg/dL Normal 0.55-1.02 [facility] Comment on above: Performed By: #### P OCGLUC #### [facility] [address] [address] [address] Darrick Cao EGFR-AF ALBANIAN >60 Normal >=60 [facility] Comment on above: Performed By: #### P OCGLUC #### [facility] [address] [place] [address] Dr. Darrick Cao EGFR-NON AF ALBANIAN >60 Normal >=60 [facility] Comment on above: Performed By: #### P OCGLUC #### [facility] [address] [address] [address] Darrick Cao Globulin (S) [Mass/Vol] 3.6 g/dL Normal [facility] Comment on above: Performed By: #### P OCGLUC #### [facility] [address] [address] [address] Darrick Cao Glucose [Mass/Vol] 103 mg/dL Normal 74-106 [facility] Comment on above: Performed By: #### P OCGLUC #### [facility] [address] [address] [address] Darrick Cao Potassium [Moles/Vol] 4.2 mmol/L Normal 3.5-5.1 [facility] Comment on above: Performed By: #### P OCGLUC #### [facility] [address] [address] [address] Darrick Cao Protein [Mass/Vol] 6.5 g/dL Normal 6.4-8.2 [facility] Comment on above: Performed By: #### P OCGLUC #### [facility] [address] [address] [address] Darrick Cao Sodium [Moles/Vol] 140 mmol/L Normal 136-145 [facility] Comment on above: Performed By: #### P OCGLUC #### [facility] [address] [address] [address] Darrick Cao Urea nitrogen [Mass/Vol] 11.0 mg/dL Normal 7.0-18.0 [facility] Comment on above: Performed By: #### P OCGLUC #### [facility] [address] [address] [address] Darrick Cao Urea nitrogen/Creatinine [Mass ratio] 13.4 mg/mg Normal [facility] Comment on above: Performed By: #### P OCGLUC #### [facility] [address] [address] [address] Darrick Cao URINE MICROSCOPIC ONLYon BACTERIA NONE SEEN Normal NONE SEEN [facility] Comment on above: Performed By: #### U MICRO, ERUR ####[facility] [address] [place] [address]Dr. Darrick Cao Bacteria identified Cx Nom (U) NOT INDICATED Normal [facility] Comment on above: Performed By: #### U MICRO, ERUR ####[facility] [address] [address]Dr. Darrick Cao CAST NONE SEEN Normal NONE SEEN [facility] Comment on above: Performed By: #### U MICRO, ERUR ####[facility] [address] [address]DrMiguel Cao Crystals LM Nom (Urine sed) NONE SEEN Normal NONE SEEN [facility] Comment on above: Performed By: #### U MICRO, ERUR ####[facility] [address] [place] [id number]. Darrick Cao Epithelial cells LM Ql (Urine sed) RARE Normal NONE SEEN /RARE [facility] Comment on above: Performed By: #### U MICRO, ERUR ####[facility] [address] [place] [id number]. Darrick Cao MUCOUS NONE SEEN Normal NONE SEEN [facility] Comment on above: Performed By: #### U MICRO, ERUR ####[facility] [address] [place] [address]Dr. Darrick Cao RBC 5-10 Abnormal 0-2 [facility] Comment on above: Performed By: #### U MICRO, ERUR ####[facility] [address] [place] [address]DrMiguel Cao WBC 0-2 Abnormal NONE SEEN [facility] Comment on above: Performed By: #### U MICRO, ERUR ####[facility] [address] [place] [id number]. Darrick Cao XR CHEST 2 Von 04-25-2022 [...] AMY FOWLER Date: 2022-04-25 20:07 Normal [facility] CBC AUTO DIFFon 04-24-2022 BASO # 0.1 103/ul Normal 0.0-0.1 [facility] Comment on above: Performed By: #### P OCGLUC #### [facility] [address] [address] [address] Darrick Cao Basophils/100 WBC (Bld) 0.8 % Normal 0.2-2.0 [facility] Comment on above: Performed By: #### P OCGLUC #### [facility] [address] [address] [address] Darrick Cao EO # 0.1 103/ul Normal 0.0-0.7 [facility] Comment on above: Performed By: #### P OCGLUC #### [facility] [address] [place] [address] Dr. Darrick Cao Eosinophils/100 WBC (Bld) 1.9 % Normal 0.9-7.0 [facility] Comment on above: Performed By: #### P OCGLUC #### [facility] [address] [place] [address] Dr. Darrick Cao Erythrocyte distribution width (RBC) [Ratio] 15.6 % Critically high 11.0-15.0 [facility] Comment on above: Performed By: #### P OCGLUC #### [facility] [address] [place] [address] Dr. Darrick Cao Hematocrit (Bld) [Volume fraction] 35.4 % Critically low 36.0-48.0 [facility] Comment on above: Performed By: #### P OCGLUC #### [facility] [address] [place] [address] Dr. Darrick Cao Hemoglobin (Bld) [Mass/Vol] 11.4 g/dL Critically low 12.0-16.0 [facility] Comment on above: Performed By: #### P OCGLUC #### [facility] [address] [place] [address] Dr. Darrick Cao IG # 0.02 10e3/ul Normal 0.00-0.03 [facility] Comment on above: Performed By: #### P OCGLUC #### [facility] [address] [place] [address] Dr. Darrick Cao IG % 0.3 % Normal 0.0-0.5 [facility] Comment on above: Performed By: #### P OCGLUC #### [facility] [address] [place] [address] Dr. Darrick Cao LYMPH # 1.9 103/ul Normal 1.2-3.8 [facility] Comment on above: Performed By: #### P OCGLUC #### [facility] [address] [address] [address] Darrick Cao Lymphocytes/100 WBC (Bld) 30.2 % Normal 20.5-60.0 [facility] Comment on above: Performed By: #### P OCGLUC #### [facility] [address] [address] [address] Darrick Cao MANUAL DIFF REQ NO Normal [facility] Comment on above: Performed By: #### P OCGLUC #### [facility] [address] [address] [address] Darrick Cao MCH (RBC) [Entitic mass] 27.9 pg Normal 26.7-34.0 [facility] Comment on above: Performed By: #### P OCGLUC #### [facility] [address] [place] [address] Dr. Darrick Cao MCHC (RBC) [Mass/Vol] 32.2 g/dL Normal 29.9-35.2 [facility] Comment on above: Performed By: #### P OCGLUC #### [facility] [address] [place] [address] Dr. Darrick Cao MCV (RBC) [Entitic vol] 86.6 fL Normal 81.0-99.0 [facility] Comment on above: Performed By: #### P OCGLUC #### [facility] [address] [place] [address] Dr. Darrick Cao MONO # 0.6 103/ul Normal 0.3-0.8 [facility] Comment on above: Performed By: #### P OCGLUC #### [facility] [address] [place] [address] Dr. Darrick Cao Monocytes/100 WBC (Bld) 9.0 % Normal 1.7-12.0 [facility] Comment on above: Performed By: #### P OCGLUC #### [facility] [address] [place] [address] Dr. Darrick Cao NEUT # 3.7 103/ul Normal 1.4-6.5 [facility] Comment on above: Performed By: #### P OCGLUC #### [facility] [address] [address] [address] Darrick Cao Neutrophils/100 WBC (Bld) 57.8 % Normal 43.0-75.0 [facility] Comment on above: Performed By: #### P OCGLUC #### [facility] [address] [address] [address] Darrick Cao Platelet mean volume (Bld) [Entitic vol] 9.5 fL Normal 9.5-13.5 [facility] Comment on above: Performed By: #### P OCGLUC #### [facility] [address] [address] [address] Darrick Cao PLT 256 103/ul Normal 150-450 [facility] Comment on above: Performed By: #### P OCGLUC #### [facility] [address] [place] [address] Dr. Darrick Cao RBC 4.09 106/ul Critically low 4.20-5.[address] [facility] Comment on above: Performed By: #### P OCGLUC #### [facility] [address] [place] [address] Dr. Darrick Cao WBC 6.3 103/ul Normal 4.0-11.0 [facility] Comment on above: Performed By: #### P OCGLUC #### [facility] [address] [place] [address] Dr. Darrick Cao GRAM STAINon 04-24-2022 COMMENTS NO ORGANISMS OBSERVED Normal [facility] Comment on above: Performed By: #### C XWND #### [facility] [address] [place] [address] Dr. Darrick Cao DIPHTHEROIDS Normal [facility] Comment on above: Performed By: #### C XWND #### [facility] [address] [place] [address] Dr. Darrick Cao EPITHELIALS Normal [facility] Comment on above: Performed By: #### C XWND #### [facility] [address] [place] [address] Dr. Darrick Cao FUNGAL ELEMENTS Normal [facility] Comment on above: Performed By: #### C XWND #### [facility] [address] [address] [address] Darrick Cao GRAM NEG BACILLI Normal [facility] Comment on above: Performed By: #### C XWND #### [facility] [address] [address] [address] Darrick Cao GRAM NEG DIPPLOCOCCI Normal [facility] Comment on above: Performed By: #### C XWND #### [facility] [address] [address] [address] Darrick Cao GRAM POS BACILLI Normal [facility] Comment on above: Performed By: #### C XWND #### [facility] [address] [address] [address] Darrick Cao GRAM POSITIVE COCCI Normal [facility] Comment on above: Performed By: #### C XWND #### [facility] [address] [address] [address] Darrick Cao GRAM STAIN SOURCE Post irrigation left foot Normal [facility] Comment on above: Performed By: #### C XWND #### [facility] [address] [address] [address] Darrick Cao GS_DIPTH [facility] Comment on above: Performed By: #### C XWND #### [facility] [address] [address] [address] Darrick Cao WBC NONE SEEN Normal [facility] Comment on above: Performed By: #### C XWND #### [facility] [address] [address] [address] Darrick Cao POINT OF CARE GLUCOSEon -2 Glucose [Mass/Vol] 132 mg/dL Critically high 74-106 [facility] Comment on above: Performed By: #### P OCGLUC #### [facility] [address] [address] [address] Darrick Cao Glucose [Mass/Vol] 105 mg/dL Normal 74-106 [facility] Comment on above: Performed By: #### P OCGLUC ####[facility] [address] [place], [place] [address]VcDr. Darrick Cao PROF 14(COMP METB)on 022 Albumin [Mass/Vol] 2.9 g/dL Critically low 3.4-5.0 [facility] Comment on above: Performed By: #### P OCGLUC #### [facility] [address] [address] [address] Darrick Cao Albumin/Globulin [Mass ratio] 0.8 {ratio} Normal [facility] Comment on above: Performed By: #### P OCGLUC #### [facility] [address] [address] [address] Darrick Cao ALP [Catalytic activity/Vol] 122 U/L Critically high 46-116 [facility] Comment on above: Performed By: #### P OCGLUC #### [facility] [address] [address] [address] Darrick Cao ALT [Catalytic activity/Vol] 65 U/L Critically high 14-59 [facility] Comment on above: Performed By: #### P OCGLUC #### [facility] [address] [address] [address] Darrick Cao Anion gap [Moles/Vol] 12.2 mmol/L Normal [facility] Comment on above: Performed By: #### P OCGLUC #### [facility] [address] [address] [address] Darrick Cao AST [Catalytic activity/Vol] 28 U/L Normal 15-37 [facility] Comment on above: Performed By: #### P OCGLUC #### [facility] [address] [address] [address] Darrick Cao Bilirubin [Mass/Vol] 0.3 mg/dL Normal 0.2-1.0 [facility] Comment on above: Performed By: #### P OCGLUC #### [facility] [address] [address] [address] Darrick Cao Calcium [Mass/Vol] 8.5 mg/dL Normal 8.5-10.1 [facility] Comment on above: Performed By: #### P OCGLUC #### [facility] [address] [address] [address] Darrick Cao Chloride [Moles/Vol] 107 mmol/L Normal 98-107 [facility] Comment on above: Performed By: #### P OCGLUC #### [facility] [address] [address] [address] Darrick Cao CO2 [Moles/Vol] 25.9 mmol/L Normal 21.0-32.0 [facility] Comment on above: Performed By: #### P OCGLUC #### [facility] [address] [address] [address] Darrick Cao Creatinine [Mass/Vol] 0.87 mg/dL Normal 0.55-1.02 [facility] Comment on above: Performed By: #### P OCGLUC #### [facility] [address] [address] [address] Darrick Cao EGFR-AF ALBANIAN >60 Normal >=60 [facility] Comment on above: Performed By: #### P OCGLUC #### [facility] [address] [address] [address] Darrick Cao EGFR-NON AF ALBANIAN >60 Normal >=60 [facility] Comment on above: Performed By: #### P OCGLUC #### [facility] [address] [address] [address] Darrick Cao Globulin (S) [Mass/Vol] 3.8 g/dL Normal [facility] Comment on above: Performed By: #### P OCGLUC #### [facility] [address] [address] [address] Darrick Cao Glucose [Mass/Vol] 107 mg/dL Critically high 74-106 [facility] Comment on above: Performed By: #### P OCGLUC #### [facility] [address] [address] [address] Darrick Cao Potassium [Moles/Vol] 4.1 mmol/L Normal 3.5-5.1 [facility] Comment on above: Performed By: #### P OCGLUC #### [facility] [address] [address] [address] Darrick Cao Protein [Mass/Vol] 6.7 g/dL Normal 6.4-8.2 [facility] Comment on above: Performed By: #### P OCGLUC #### [facility] [address] [place] [address] Dr. Darrick Cao Sodium [Moles/Vol] 141 mmol/L Normal 136-145 [facility] Comment on above: Performed By: #### P OCGLUC #### [facility] [address] [place] [address] Dr. Darrick Cao Urea nitrogen [Mass/Vol] 10.0 mg/dL Normal 7.0-18.0 [facility] Comment on above: Performed By: #### P OCGLUC #### [facility] [address] [place] [address] Dr. Darrick Cao Urea nitrogen/Creatinine [Mass ratio] 11.5 mg/mg Normal [facility] Comment on above: Performed By: #### P OCGLUC #### [facility] [address] [place] [address] Dr. Darrick Cao VANCOMYCIN TROUGHon 04-24-20 VANCOMYCIN TROUGH 9.6 ug/ml Normal 5.0-20.0 [facility] Comment on above: Performed By: #### V ANCT #### [facility] [address] [place] [address] Dr. Darrick Cao CBC AUTO DIFFon 04-23-2022 BASO # 0.1 103/ul Normal 0.0-0.1 [facility] Comment on above: Performed By: #### C XWND #### [facility] [address] [place] [address] Dr. Darrick Cao Basophils/100 WBC (Bld) 0.6 % Normal 0.2-2.0 [facility] Comment on above: Performed By: #### C XWND #### [facility] [address] [place] [address] Dr. Darrick Cao EO # 0.1 103/ul Normal 0.0-0.7 [facility] Comment on above: Performed By: #### C XWND #### [facility] [address] [place] [address] Dr. Darrick Cao Eosinophils/100 WBC (Bld) 0.6 % Critically low 0.9-7.0 [facility] Comment on above: Performed By: #### C XWND #### [facility] [address] [place] [address] Dr. Darrick Cao Erythrocyte distribution width (RBC) [Ratio] 15.8 % Critically high 11.0-15.0 [facility] Comment on above: Performed By: #### C XWND #### [facility] [address] [place] [address] Dr. Darrick Cao Hematocrit (Bld) [Volume fraction] 34.0 % Critically low 36.0-48.0 [facility] Comment on above: Performed By: #### C XWND #### [facility] [address] [place] [address] Dr. Darrick Cao Hemoglobin (Bld) [Mass/Vol] 11.0 g/dL Critically low 12.0-16.0 [facility] Comment on above: Performed By: #### C XWND #### [facility] [address] [place] [address] Dr. Darrick Cao IG # 0.03 10e3/ul Normal 0.00-0.03 [facility] Comment on above: Performed By: #### C XWND #### [facility] [address] [place] [address] Dr. Darrick Cao IG % 0.4 % Normal 0.0-0.5 [facility] Comment on above: Performed By: #### C XWND #### [facility] [address] [place] [address] Dr. Darrick Cao LYMPH # 1.6 103/ul Normal 1.2-3.8 [facility] Comment on above: Performed By: #### C XWND #### [facility] [address] [place] [address] Dr. Darrick Cao Lymphocytes/100 WBC (Bld) 19.6 % Critically low 20.5-60.0 [facility] Comment on above: Performed By: #### C XWND #### [facility] [address] [place] [address] Dr. Darrick Cao MANUAL DIFF REQ NO Normal [facility] Comment on above: Performed By: #### C XWND #### [facility] [address] [place] [address] Dr. Darrick Cao MCH (RBC) [Entitic mass] 28.1 pg Normal 26.7-34.0 [facility] Comment on above: Performed By: #### C XWND #### [facility] [address] [place] [address] Dr. Darrick Cao MCHC (RBC) [Mass/Vol] 32.4 g/dL Normal 29.9-35.2 [facility] Comment on above: Performed By: #### C XWND #### [facility] [address] [place] [address] Dr. Darrick Cao MCV (RBC) [Entitic vol] 87.0 fL Normal 81.0-99.0 [facility] Comment on above: Performed By: #### C XWND #### [facility] [address] [place] [address] Dr. Darrick Cao MONO # 0.8 103/ul Normal 0.3-0.8 [facility] Comment on above: Performed By: #### C XWND #### [facility] [address] [place] [address] Dr. Darrick Cao Monocytes/100 WBC (Bld) 10.3 % Normal 1.7-12.0 [facility] Comment on above: Performed By: #### C XWND #### [facility] [address] [place] [address] Dr. Darrick Cao NEUT # 5.4 103/ul Normal 1.4-6.5 [facility] Comment on above: Performed By: #### C XWND #### [facility] [address] [place] [address] Dr. Darrick Cao Neutrophils/100 WBC (Bld) 68.5 % Normal 43.0-75.0 [facility] Comment on above: Performed By: #### C XWND #### [facility] [address] [address] [address] Darrick Cao Platelet mean volume (Bld) [Entitic vol] 9.9 fL Normal 9.5-13.5 [facility] Comment on above: Performed By: #### C XWND #### [facility] [address] [address] [address] Darrick Cao PLT 276 103/ul Normal 150-450 [facility] Comment on above: Performed By: #### C XWND #### [facility] [address] [address] [address] Darrick Cao RBC 3.91 106/ul Critically low 4.20-5.[address] [facility] Comment on above: Performed By: #### C XWND #### [facility] [address] [address] [address] Darrick Cao WBC 7.9 103/ul Normal 4.0-11.0 [facility] Comment on above: Performed By: #### C XWND #### [facility] [address] [address] [address] Darrick Cao POINT OF CARE GLUCOSEon 04-01 Glucose [Mass/Vol] 138 mg/dL Critically high 74-106 [facility] Comment on above: Performed By: #### P OCGLUC ####[facility] [address] [address]Dr. Darrick Cao Glucose [Mass/Vol] 151 mg/dL Critically high 74-106 [facility] Comment on above: Performed By: #### P OCGLUC #### [facility] [address] [address] [address] Darrick Cao Glucose [Mass/Vol] 141 mg/dL Critically high 74-106 [facility] Comment on above: Performed By: #### P OCGLUC ####[facility] [address] [address]Dr. Darrick Cao PROF 14(COMP METB)on 022 Albumin [Mass/Vol] 3.0 g/dL Critically low 3.4-5.0 [facility] Comment on above: Performed By: #### C XWND #### [facility] [address] [place] [address] Dr. Darrick Cao Albumin/Globulin [Mass ratio] 0.9 {ratio} Normal [facility] Comment on above: Performed By: #### C XWND #### [facility] [address] [place] [address] Dr. Darrick Cao ALP [Catalytic activity/Vol] 128 U/L Critically high 46-116 [facility] Comment on above: Performed By: #### C XWND #### [facility] [address] [place] [address] Dr. Darrick Cao ALT [Catalytic activity/Vol] 71 U/L Critically high 14-59 [facility] Comment on above: Performed By: #### C XWND #### [facility] [address] [place] [address] Dr. Darrick Cao Anion gap [Moles/Vol] 13.1 mmol/L Normal [facility] Comment on above: Performed By: #### C XWND #### [facility] [address] [place] [address] Dr. Darrick Cao AST [Catalytic activity/Vol] 50 U/L Critically high 15-37 [facility] Comment on above: Performed By: #### C XWND #### [facility] [address] [place] [address] Dr. Darrick Cao Bilirubin [Mass/Vol] 0.3 mg/dL Normal 0.2-1.0 [facility] Comment on above: Performed By: #### C XWND #### [facility] [address] [place] [address] Dr. Darrick Cao Calcium [Mass/Vol] 8.2 mg/dL Critically low 8.5-10.1 [facility] Comment on above: Performed By: #### C XWND #### [facility] [address] [place] [address] Dr. Darrick Cao Chloride [Moles/Vol] 110 mmol/L Critically high 98-107 [facility] Comment on above: Performed By: #### C XWND #### [facility] [address] [address] [address] Darrick Cao CO2 [Moles/Vol] 23.4 mmol/L Normal 21.0-32.0 [facility] Comment on above: Performed By: #### C XWND #### [facility] [address] [place] [address] Dr. Darrick Cao Creatinine [Mass/Vol] 0.96 mg/dL Normal 0.55-1.02 [facility] Comment on above: Performed By: #### C XWND #### [facility] [address] [place] [address] Dr. Darrick Cao EGFR-AF ALBANIAN >60 Normal >=60 [facility] Comment on above: Performed By: #### C XWND #### [facility] [address] [place] [address] Dr. Darrick Cao EGFR-NON AF ALBANIAN 59 mL/min/1.73m2 Critically low >=60 [facility] Comment on above: Performed By: #### C XWND #### [facility] [address] [place] [address] Dr. Darrick Cao Globulin (S) [Mass/Vol] 3.3 g/dL Normal [facility] Comment on above: Performed By: #### C XWND #### [facility] [address] [place] [address] Dr. Darrick Cao Glucose [Mass/Vol] 116 mg/dL Critically high 74-106 [facility] Comment on above: Performed By: #### C XWND #### [facility] [address] [place] [address] Dr. Darrick Cao Potassium [Moles/Vol] 4.5 mmol/L Normal 3.5-5.1 [facility] Comment on above: Performed By: #### C XWND #### [facility] [address] [place] [address] Dr. Darrick Cao Protein [Mass/Vol] 6.3 g/dL Critically low 6.4-8.2 [facility] Comment on above: Performed By: #### C XWND #### [facility] [address] [place] [address] Dr. Darrick Cao Sodium [Moles/Vol] 142 mmol/L Normal 136-145 [facility] Comment on above: Performed By: #### C XWND #### [facility] [address] [place] [address] Dr. Darrick Cao Urea nitrogen [Mass/Vol] 14.0 mg/dL Normal 7.0-18.0 [facility] Comment on above: Performed By: #### C XWND #### [facility] [address] [place] [address] Dr. Darrick Cao Urea nitrogen/Creatinine [Mass ratio] 14.6 mg/mg Normal [facility] Comment on above: Performed By: #### C XWND #### [facility] [address] [place] [address] Dr. Darrick Cao CBC AUTO DIFFon 04-22-2022 BASO # 0.1 103/ul Normal 0.0-0.1 [facility] Comment on above: Performed By: #### C BC #### [facility] [address] [place] [address] Dr. Darrick Cao Basophils/100 WBC (Bld) 0.7 % Normal 0.2-2.0 [facility] Comment on above: Performed By: #### C BC #### [facility] [address] [place] [address] Dr. Darrick Cao EO # 0.1 103/ul Normal 0.0-0.7 [facility] Comment on above: Performed By: #### C BC #### [facility] [address] [place] [address] Dr. Darrick Cao Eosinophils/100 WBC (Bld) 0.5 % Critically low 0.9-7.0 [facility] Comment on above: Performed By: #### C BC #### [facility] [address] [place] [address] Dr. Darrick Cao Erythrocyte distribution width (RBC) [Ratio] 15.8 % Critically high 11.0-15.0 [facility] Comment on above: Performed By: #### C BC #### [facility] [address] [place] [address] Dr. Darrick Cao Hematocrit (Bld) [Volume fraction] 39.8 % Normal 36.0-48.0 [facility] Comment on above: Performed By: #### C BC #### [facility] [address] [place] [address] Dr. Darrick Cao Hemoglobin (Bld) [Mass/Vol] 12.9 g/dL Normal 12.0-16.0 [facility] Comment on above: Performed By: #### C BC #### [facility] [address] [place] [address] Dr. Darrick Cao IG # 0.03 10e3/ul Normal 0.00-0.03 [facility] Comment on above: Performed By: #### C BC #### [facility] [address] [place] [address] Dr. Darrick Cao IG % 0.3 % Normal 0.0-0.5 [facility] Comment on above: Performed By: #### C BC #### [facility] [address] [place] [address] Dr. Darrick Cao LYMPH # 1.6 103/ul Normal 1.2-3.8 [facility] Comment on above: Performed By: #### C BC #### [facility] [address] [place] [address] Dr. Darrick Cao Lymphocytes/100 WBC (Bld) 16.0 % Critically low 20.5-60.0 [facility] Comment on above: Performed By: #### C BC #### [facility] [address] [place] [address] Dr. Darrick Cao MANUAL DIFF REQ NO Normal [facility] Comment on above: Performed By: #### C BC #### [facility] [address] [place] [address] Dr. Darrick Cao MCH (RBC) [Entitic mass] 28.2 pg Normal 26.7-34.0 [facility] Comment on above: Performed By: #### C BC #### [facility] [address] [place] [address] Dr. Darrick Cao MCHC (RBC) [Mass/Vol] 32.4 g/dL Normal 29.9-35.2 [facility] Comment on above: Performed By: #### C BC #### [facility] [address] [place] [address] Dr. Darrick Cao MCV (RBC) [Entitic vol] 86.9 fL Normal 81.0-99.0 [facility] Comment on above: Performed By: #### C BC #### [facility] [address] [place] [address] Dr. Darrick Cao MONO # 0.9 103/ul Critically high 0.3-0.8 [facility] Comment on above: Performed By: #### C BC #### [facility] [address] [place] [address] Dr. Darrick Cao Monocytes/100 WBC (Bld) 8.7 % Normal 1.7-12.0 [facility] Comment on above: Performed By: #### C BC #### [facility] [address] [place] [address] Dr. Darrick Cao NEUT # 7.5 103/ul Critically high 1.4-6.5 [facility] Comment on above: Performed By: #### C BC #### [facility] [address] [place] [address] Dr. Darrick Cao Neutrophils/100 WBC (Bld) 73.8 % Normal 43.0-75.0 [facility] Comment on above: Performed By: #### C BC #### [facility] [address] [place] [address] Dr. Darrick Cao Platelet mean volume (Bld) [Entitic vol] 9.3 fL Critically low 9.5-13.5 [facility] Comment on above: Performed By: #### C BC #### [facility] [address] [address] [address] Darrick Cao PLT 345 103/ul Normal 150-450 [facility] Comment on above: Performed By: #### C BC #### [facility] [address] [address] [address] Darrick Cao RBC 4.58 106/ul Normal 4.20-5.40 [facility] Comment on above: Performed By: #### C BC #### [facility] [address] [address] [address] Darrick Cao WBC 10.1 103/ul Normal 4.0-11.0 [facility] Comment on above: Performed By: #### C BC #### [facility] [address] [address] [address] Darrick Cao CRPon 04-22-2022 CRP 5.2 mg/dL Critically high <=1.[address] [facility] Comment on above: Performed By: #### B MP, CRP ####[facility] [address] [address]Dr. Darrick Cao CULTURE BLOODon 04-22-2022 Microscopic examination of blood, culture Culture Observations: NO GROWTH AT 5 DAYS. Normal [facility] Comment on above: Performed By: #### B LDCX2 #### [facility] [address] [place] [address] Dr. Darrick Cao Microscopic examination of blood, culture Culture Observations: NO GROWTH AT 5 DAYS. Normal [facility] Comment on above: Performed By: #### B LDCX1 #### [facility] [address] [place] [address] Dr. Darrick Cao Covid-19 PCR (CVDTB)on 04-01 SARS-CoV-2 (COVID-19) RNA ALEKSANDR+probe Ql (Unsp spec) Not detected Normal NOT DETECTED [facility] Comment on above: Result [...] for this test is supported by the [employer] of Health and Human Service's declaration that [...] used). Performed By: #### P OCGLUC #### [facility] [address] [place] [address] Dr. Darrick Cao LACTATE/LACTIC ACIDon 2021 Lactate [Moles/Vol] 1.3 mmol/L Normal 0.4-1.9 [facility] Comment on above: Performed By: #### P OCGLUC #### [facility] [address] [place] [address] Dr. Darrick Cao POINT OF CARE GLUCOSEon 04-01 Glucose [Mass/Vol] 96 mg/dL Normal 74-106 [facility] Comment on above: Performed By: #### P OCGLUC #### [facility] [address] [place] [address] Dr. Darrick Cao PROF CHEM 8 (BAS METB)on Anion gap [Moles/Vol] 12.3 mmol/L Normal [facility] Comment on above: Performed By: #### B MP, CRP ####[facility] [address] [address]DrMiguel Cao Calcium [Mass/Vol] 9.2 mg/dL Normal 8.5-10.1 [facility] Comment on above: Performed By: #### B MP, CRP ####[facility] [address] [address]DrMiguel Cao Chloride [Moles/Vol] 104 mmol/L Normal 98-107 [facility] Comment on above: Performed By: #### B MP, CRP ####[facility] [address] [address]Dr. Darrick Nash CO2 [Moles/Vol] 26.4 mmol/L Normal 21.0-32.0 [facility] Comment on above: Performed By: #### B MP, CRP ####[facility] [address] [place], [place] [address]Dr. Darrick Cao Creatinine [Mass/Vol] 1.19 mg/dL Critically high 0.55-1.02 [facility] Comment on above: Performed By: #### B MP, CRP ####[facility] [address] [place], [place] [address]Dr. Darrick Cao EGFR-AF ALBANIAN 56 mL/min/1.73m2 Critically low >=60 [facility] Comment on above: Performed By: #### B MP, CRP ####[facility] [address] [place], [place] [address]Dr. Darrick Cao EGFR-NON AF ALBANIAN 46 mL/min/1.73m2 Critically low >=60 [facility] Comment on above: Performed By: #### B MP, CRP ####[facility] [address] [place], [place] [address]Dr. Darrick Cao Glucose [Mass/Vol] 124 mg/dL Critically high 74-106 [facility] Comment on above: Performed By: #### B MP, CRP ####[facility] [address] [place], [place] [address]Dr. Darrick Cao Potassium [Moles/Vol] 4.7 mmol/L Normal 3.5-5.1 [facility] Comment on above: Performed By: #### B MP, CRP ####[facility] [address] [place], [place] [address]Dr. Darrick Cao Sodium [Moles/Vol] 138 mmol/L Normal 136-145 [facility] Comment on above: Performed By: #### B MP, CRP ####[facility] [address] [place], [place] [address]Dr. Darrick Cao Urea nitrogen [Mass/Vol] 21.0 mg/dL Critically high 7.0-18.0 [facility] Comment on above: Performed By: #### B MP, CRP ####[facility] [address] [place], [place] [address]FcDr. Darrick Cao Urea nitrogen/Creatinine [Mass ratio] 17.6 mg/mg Normal [facility] Comment on above: Performed By: #### B MP, CRP ####[facility] [address] [place], [place] [address]IqDr. Darrick Cao SED RATE AGARERGRENon 2021 SED RATE 64 mm/hr Critically high <=[address] [facility] Comment on above: Performed By: #### P OCGLUC #### [facility] [address] [address] [address] ANKLE LT WO [...] by: SHAWNEE KELLY Date: 2022-03-11 10:18 Normal [facility] [employer] Quick Testingon 2020 Result Negative [email or web address] Other Operative Reporton Operative Report MR#: [id number] [facility] Pt. Name: Nicol Knowles Room #: 0C Discharge Date: Birthdate: 1960 OPERATIVE REPORT DATE OF SURGERY: 12/16/2020 SURGEON: David Lr M.D. PREOPERATIVE DIAGNOSIS: Trigger digits, right long finger and thumb. POSTOPERATIVE DIAGNOSIS: Trigger digits, right long finger and thumb. PROCEDURE: A1 leigha release, right long finger and thumb. ALTERATIONS TAILOR: Hay Mast M.D. ANESTHESIA: MAC. INDICATION FOR [...] Lr M.D. Date Trans: 12/16/2020 09:13 A/braxton [id number] cc: Waqas Pierce M.D. [address] [place] [address] Normal [facility] POC GLUCOSE LABon 12-16-2020 Glucose [Mass/Vol] 103 mg/dL High 70-100 [facility] Comment on above: Performed By: #### 8 [id number] #### [address] Vital Signs Date Time Vital Sign Value Performing Clinician Facility 10-07-2024 14:15-0500 Diastolic blood pressure 80 mm[Hg] Waqas Pierce MD Work Phone: [facility] 10-07-2024 14:15-0500 Heart rate 84 /min Waqas Pierce MD Work Phone: [facility] 10-07-2024 14:15-0500 Respiratory rate 16 /min Waqas Pierce MD Work Phone: [facility] 10-07-2024 14:15-0500 SaO2% (BldA) [Mass fraction] 97 % Waqas Pierce MD Work Phone: [facility] 10-07-2024 14:15-0500 Systolic blood pressure 122 mm[Hg] Waqas Pierce MD Work Phone: [facility] 10-07-2024 12:39-0500 Body height 170.18 cm Waqas Pierce MD Work Phone: [facility] 10-07-2024 12:39-0500 Body weight 127.91 kg Waqas Pierce MD Work Phone: [facility] 09-29-2024 13:50-0500 Body height 170.18 cm Waqas Pierce MD Work Phone: [facility] 09-29-2024 13:50-0500 Body mass index (BMI) [Ratio] 44.3 kg/m2 Waqas Pierce MD Work Phone: [facility] 09-29-2024 13:50-0500 Body temperature 98 [degF] Waqas Pirece MD Work Phone: [facility] 09-29-2024 13:50-0500 Body weight 128.36 kg Waqas Pierce MD Work Phone: [facility] 09-29-2024 13:50-0500 Diastolic blood pressure 85 mm[Hg] Waqas Pierce MD Work Phone: [facility] 09-29-2024 13:50-0500 Heart rate 105 /min Waqas Pierce MD Work Phone: [facility] 09-29-2024 13:50-0500 SaO2% (BldA) [Mass fraction] 93 % Waqas Pierce MD Work Phone: [facility] 09-29-2024 13:50-0500 Systolic blood pressure 111 mm[Hg] Waqas Pierce MD Work Phone: [facility] 08-25-2024 14:08-0500 Body height 170.18 cm Waqas Pierce MD Work Phone: [facility] 08-25-2024 14:08-0500 Body mass index (BMI) [Ratio] 44.4 kg/m2 Waqas Pierce MD Work Phone: [facility] 08-25-2024 14:08-0500 Body temperature 97.4 [degF] Waqas Pierce MD Work Phone: [facility] 08-25-2024 14:08-0500 Body weight 128.82 kg Waqas Pierce MD Work Phone: [facility] 08-25-2024 14:08-0500 Diastolic blood pressure 59 mm[Hg] Waqas Pierce MD Work Phone: [facility] 08-25-2024 14:08-0500 Heart rate 88 /min Waqas Pierce MD Work Phone: [facility] 08-25-2024 14:08-0500 Systolic blood pressure 91 mm[Hg] Waqas Pierce MD Work Phone: [facility] 08-04-2024 10:48-0500 Body height 170.18 cm [facility] 08-04-2024 10:48-0500 Body mass index (BMI) [Ratio] 44.8 kg/m2 [facility] 08-04-2024 10:48-0500 Body weight 129.72 kg [facility] 08-04-2024 10:48-0500 Diastolic blood pressure 84 mm[Hg] [facility] 08-04-2024 10:48-0500 Heart rate 82 /min [facility] 08-04-2024 10:48-0500 Systolic blood pressure 128 mm[Hg] [facility] 06-19-2024 12:54-0400 Body mass index (BMI) [Ratio] 47.9 kg/m2 [facility] 06-19-2024 11:16-0400 Body height 170.18 cm [facility] 06-19-2024 11:16-0400 Body weight 129 kg [facility] 06-16-2024 09:58-0400 Body height 170.18 cm [facility] 06-16-2024 09:58-0400 Body mass index (BMI) [Ratio] 44.9 kg/m2 [facility] 06-16-2024 09:58-0400 Body weight 130.18 kg [facility] 06-16-2024 09:58-0400 Diastolic blood pressure 75 mm[Hg] [facility] 06-16-2024 09:58-0400 Heart rate 83 /min [facility] 06-16-2024 09:58-0400 Systolic blood pressure 114 mm[Hg] [facility] 05-23-2024 10:46-0400 Body mass index (BMI) [Ratio] 47.9 kg/m2 [facility] 05-23-2024 09:49-0400 Body height 170.18 cm [facility] 05-23-2024 09:49-0400 Body weight 127.45 kg [facility] 02-21-2024 10:03-0400 Body height 170.18 cm MD Waqas Pierce Work Phone: [facility] 02-21-2024 10:03-0400 Body mass index (BMI) [Ratio] 42.3 kg/m2 MD Waqas Pierce Work Phone: [facility] 02-21-2024 10:03-0400 Body weight 122.49 kg MD Waqas Pierce Work Phone: [facility] 02-21-2024 10:03-0400 Diastolic blood pressure 88 mm[Hg] MD Waqas Pierce Work Phone: [facility] 02-21-2024 10:03-0400 Heart rate 85 /min MD Waqas Pierce Work Phone: [facility] 02-21-2024 10:03-0400 Respiratory rate 18 /min MD Waqas Pierce Work Phone: [facility] 02-21-2024 10:03-0400 SaO2% (BldA) [Mass fraction] 97 % MD Waqas Pierce Work Phone: [facility] 02-21-2024 10:03-0400 Systolic blood pressure 142 mm[Hg] MD Waqas Pierce Work Phone: [facility] 01-15-2024 10:50-0400 Body height 170.18 cm [facility] 01-15-2024 10:50-0400 Body mass index (BMI) [Ratio] 47.9 kg/m2 [facility] 01-15-2024 10:50-0400 Body weight 138.88 kg [facility] 01-10-2024 09:49-0400 Body mass index (BMI) [Ratio] 47.9 kg/m2 MD Waqas Pierce Work Phone: [facility] 01-10-2024 08:37-0400 Body height 170.18 cm MD Waqas Pierce Work Phone: [facility] 01-10-2024 08:37-0400 Body weight 117.02 kg MD Waqas Pierce Work Phone: [facility] 01-03-2024 10:52-0400 Body height 170.18 cm MD Waqas Pierce Work Phone: [facility] 01-03-2024 10:52-0400 Body mass index (BMI) [Ratio] 39.8 kg/m2 MD Waqas Pierce Work Phone: [facility] 01-03-2024 10:52-0400 Body weight 115.41 kg MD Waqas Pierce Work Phone: [facility] 01-03-2024 10:52-0400 Diastolic blood pressure 89 mm[Hg] MD Waqas Pierce Work Phone: [facility] 01-03-2024 10:52-0400 Heart rate 87 /min MD Waqas Pierce Work Phone: [facility] 01-03-2024 10:52-0400 Respiratory rate 18 /min MD Waqas Pierce Work Phone: [facility] 01-03-2024 10:52-0400 SaO2% (BldA) [Mass fraction] 99 % MD Waqas Pierce Work Phone: [facility] 01-03-2024 10:52-0400 Systolic blood pressure 128 mm[Hg] MD Waqas Pierce Work Phone: [facility] 12-10-2023 11:39-0400 Body mass index (BMI) [Ratio] 47.9 kg/m2 MD Waqas Pierce Work Phone: [facility] 12-10-2023 10:57-0400 Body height 170.18 cm MD Waqas Pierce Work Phone: [facility] 12-10-2023 10:57-0400 Body weight 117.02 kg MD Waqas Pierce Work Phone: [facility] 11-22-2023 10:59-0500 Body height 170.18 cm [facility] 11-22-2023 10:59-0500 Body mass index (BMI) [Ratio] 41.1 kg/m2 [facility] 11-22-2023 10:59-0500 Body weight 119.01 kg [facility] 11-22-2023 10:59-0500 Diastolic blood pressure 84 mm[Hg] [facility] 11-22-2023 10:59-0500 Heart rate 72 /min [facility] 11-22-2023 10:59-0500 Respiratory rate 18 /min [facility] 11-22-2023 10:59-0500 SaO2% (BldA) [Mass fraction] 99 % [facility] 11-22-2023 10:59-0500 Systolic blood pressure 132 mm[Hg] [facility] 11-21-2023 09:48-0500 Body height 170.18 cm [facility] 11-21-2023 09:48-0500 Body mass index (BMI) [Ratio] 40.7 kg/m2 [facility] 11-21-2023 09:48-0500 Body temperature 98.2 [degF] [facility] 11-21-2023 09:48-0500 Body weight 117.99 kg [facility] 11-21-2023 09:48-0500 Diastolic blood pressure 82 mm[Hg] [facility] 11-21-2023 09:48-0500 Heart rate 105 /min [facility] 11-21-2023 09:48-0500 Systolic blood pressure 131 mm[Hg] [facility] 11-19-2023 09:52-0500 Body height 170.18 cm [facility] 11-19-2023 09:52-0500 Body mass index (BMI) [Ratio] 40.8 kg/m2 [facility] 11-19-2023 09:52-0500 Body weight 118.38 kg [facility] 11-01-2023 11:15-0500 Body height 170.18 cm Waqas Pierce Other [facility] 11-01-2023 11:15-0500 Body mass index (BMI) [Ratio] 40.75 kg/m2 Waqas Pierce Other [email or web address] Other 11-01-2023 11:15-0500 Body weight 118.03 kg Waqas Pierce Other [email or web address] Other 11-01-2023 11:15-0500 Body weight 118.02 kg [facility] 11-01-2023 11:15-0500 Diastolic blood pressure 87 mm[Hg] Waqas Pierce Other [facility] 11-01-2023 11:15-0500 Systolic blood pressure 127 mm[Hg] Waqas Pierce Other [facility] 10-15-2023 10:00-0500 Body height 170.18 cm Grecia Carrera Other [facility] 10-15-2023 10:00-0500 Body mass index (BMI) [Ratio] 40.08 kg/m2 Grecia Fitt Other [email or web address] Other 10-15-2023 10:00-0500 Body weight 116.08 kg Grecia Fitt Other [facility] [email or web address] Other 10-15-2023 10:00-0500 Body weight 116.07 kg [facility] 09-18-2023 11:00-0500 Body height 170.18 cm Rolando Castellanos Other [facility] 09-18-2023 11:00-0500 Body mass index (BMI) [Ratio] 40.45 kg/m2 Rolando Castellanos Other [facility] [email or web address] Other 09-18-2023 11:00-0500 Body weight 117.16 kg Rolando Castellanos Other [facility] 09-18-2023 11:00-0500 Diastolic blood pressure 80 mm[Hg] Rolando Castellanos Other [facility] 09-18-2023 11:00-0500 Respiratory rate 18 /min Rolando Castellanos Other [employer] [facility] [email or web address] Other 09-18-2023 11:00-0500 SaO2% (BldA) [Mass fraction] 98 % Rolando Castellanos Other [facility] [email or web address] Other 09-18-2023 11:00-0500 Systolic blood pressure 115 mm[Hg] Rolando Castellanos Other [facility] 09-17-2023 10:45-0500 Body height 170.18 cm Grecia Fitt Other [facility] 09-17-2023 10:45-0500 Body mass index (BMI) [Ratio] 40.65 kg/m2 Grecia Fitt Other [facility] [email or web address] Other 09-17-2023 10:45-0500 Body weight 117.75 kg Grecia Fitt Other [facility] 09-03-2023 12:45-0500 Diastolic blood pressure 60 mm[Hg] MD Waqas Pierce Work Phone: [facility] 09-03-2023 12:45-0500 Heart rate 70 /min MD Waqas Pierce Work Phone: [facility] 09-03-2023 12:45-0500 Inhaled oxygen flow rate 1 L/min MD Waqas Pierce Work Phone: [facility] 09-03-2023 12:45-0500 Respiratory rate 16 /min MD Waqas Pierce Work Phone: [facility] 09-03-2023 12:45-0500 SaO2% (BldA) [Mass fraction] 97 % MD Waqas Pierce Work Phone: [facility] 09-03-2023 12:45-0500 Systolic blood pressure 132 mm[Hg] MD Waqas Pierce Work Phone: [facility] 09-03-2023 10:21-0500 Body temperature 98.4 [degF] MD Waqas Pierce Work Phone: [facility] 09-03-2023 07:14-0500 Body height 172.72 cm MD Waqas Pierce Work Phone: [facility] 09-03-2023 07:14-0500 Body mass index (BMI) [Ratio] 39.5 kg/m2 MD Waqas Pierce Work Phone: [facility] 09-03-2023 07:14-0500 Body weight 118 kg MD Waqas Pierce Work Phone: [facility] 08-21-2023 14:30-0500 Body height 170.18 cm Waqas Pierce Other [facility] [email or web address] Other 08-21-2023 14:30-0500 Body mass index (BMI) [Ratio] 39.46 kg/m2 Waqas Pierce Other [email or web address] Other 08-21-2023 14:30-0500 Body weight 114.31 kg Waqas Pierce Other [email or web address] Other 08-21-2023 14:30-0500 Diastolic blood pressure 84 mm[Hg] Waqas Pierce Other [email or web address] Other 08-21-2023 14:30-0500 Systolic blood pressure 138 mm[Hg] Waqas Pierce Other [email or web address] Other 08-13-2023 10:45-0500 Body height 170.18 cm Grecia Fitt Other [email or web address] Other 08-13-2023 10:45-0500 Body mass index (BMI) [Ratio] 41.22 kg/m2 Grecia Fitt Other [email or web address] Other 08-13-2023 10:45-0500 Body weight 119.39 kg Grecia Fitt Other [email or web address] Other 07-26-2023 11:30-0400 Body height 170.18 cm Rolando Castellanos Other [email or web address] Other 07-26-2023 11:30-0400 Body mass index (BMI) [Ratio] 41.86 kg/m2 Rolando Jasmin Other [email or web address] Other 07-26-2023 11:30-0400 Body weight 121.25 kg Rolandotimothy Castellanos Other [employer] Other 07-26-2023 11:30-0400 Diastolic blood pressure 77 mm[Hg] Rolando Castellanos Other [email or web address] Other 07-26-2023 11:30-0400 Respiratory rate 18 /min Rolando Castellanos Other [email or web address] Other 07-26-2023 11:30-0400 SaO2% (BldA) [Mass fraction] 98 % Rolando Castellanos Other [email or web address] Other 07-26-2023 11:30-0400 Systolic blood pressure 121 mm[Hg] Rolando Castellanos Other [email or web address] Other 07-23-2023 10:45-0400 Body height 170.18 cm Grecia Fitt Other [email or web address] Other 07-23-2023 10:45-0400 Body mass index (BMI) [Ratio] 41.78 kg/m2 Grecia Fitt Other [email or web address] Other 07-23-2023 10:45-0400 Body weight 121.02 kg Grecia Fitt Other [email or web address] Other 06-27-2023 15:15-0400 Body height 170.18 cm David Bartolo II Other [email or web address] Other 06-27-2023 15:15-0400 Body mass index (BMI) [Ratio] 41.97 kg/m2 David Bartolo II Other [email or web address] Other 06-27-2023 15:15-0400 Body weight 121.56 kg David Rockford II Other [email or web address] Other 06-18-2023 11:30-0400 Body height 170.18 cm Grecia Fitt Other [email or web address] Other 06-18-2023 11:30-0400 Body mass index (BMI) [Ratio] 42.52 kg/m2 Grecia Fitt Other [email or web address] Other 06-18-2023 11:30-0400 Body weight 123.15 kg Grecia Fitt Other [email or web address] Other 06-14-2023 10:00-0400 Body height 170.18 cm Rolando Castellanos Other [email or web address] Other 06-14-2023 10:00-0400 Body mass index (BMI) [Ratio] 42.89 kg/m2 Rolando Castellanos Other [email or web address] Other 06-14-2023 10:00-0400 Body weight 124.24 kg Rolando Castellanos Other [email or web address] Other 06-14-2023 10:00-0400 Diastolic blood pressure 87 mm[Hg] Rolando Castellanos Other [email or web address] Other 06-14-2023 10:00-0400 Respiratory rate 18 /min Rolando Castellanos Other [email or web address] Other 06-14-2023 10:00-0400 SaO2% (BldA) [Mass fraction] 100 % Rolando Castellanos Other [email or web address] Other 06-14-2023 10:00-0400 Systolic blood pressure 124 mm[Hg] Rolando Castellanos Other [email or web address] Other 06-11-2023 12:45-0400 Body height 170.18 cm Waqas Pierce Other [email or web address] Other 06-11-2023 12:45-0400 Body mass index (BMI) [Ratio] 42.41 kg/m2 Waqas Pierce Other [email or web address] Other 06-11-2023 12:45-0400 Body weight 122.83 kg Waqas Pierce Other [email or web address] Other 06-11-2023 12:45-0400 Diastolic blood pressure 76 mm[Hg] Waqas Pierce Other [email or web address] Other 06-11-2023 12:45-0400 Respiratory rate 12 /min Waqas Pierce Other [email or web address] Other 06-11-2023 12:45-0400 Systolic blood pressure 124 mm[Hg] Waqas Pierce Other [email or web address] Other 05-14-2023 10:00-0400 Body height 170.18 cm Grecia Fitt Other [email or web address] Other 05-14-2023 10:00-0400 Body mass index (BMI) [Ratio] 43.05 kg/m2 Grecia Fitt Other [email or web address] Other 05-14-2023 10:00-0400 Body weight 124.69 kg Grecia Fitt Other [email or web address] Other 04-16-2023 10:00-0400 Body height 170.18 cm Grecia Fitt Other [email or web address] Other 04-16-2023 10:00-0400 Body mass index (BMI) [Ratio] 43.94 kg/m2 Grecia Fitt Other [email or web address] Other 04-16-2023 10:00-0400 Body weight 127.28 kg Grecia Fitt Other [email or web address] Other 01-11-2023 11:00-0400 Body height 170.18 cm Grecia Fitt Other [email or web address] Other 01-11-2023 11:00-0400 Body mass index (BMI) [Ratio] 47.37 kg/m2 Grecia Fitt Other [email or web address] Other 01-11-2023 11:00-0400 Body weight 137.21 kg Grecia Fitt Other [email or web address] Other 11-16-2022 11:45-0500 Body height 170.18 cm Rolando Castellanos Other [email or web address] Other 11-16-2022 11:45-0500 Body mass index (BMI) [Ratio] 47 kg/m2 Rolando Castellanos Other [email or web address] Other 11-16-2022 11:45-0500 Body weight 136.13 kg Rolando Castellanos Other [email or web address] Other 11-16-2022 11:45-0500 Diastolic blood pressure 85 mm[Hg] Rolando Castellanos Other [email or web address] Other 11-16-2022 11:45-0500 Respiratory rate 18 /min Rolando Castellanos Other [email or web address] Other 11-16-2022 11:45-0500 SaO2% (BldA) [Mass fraction] 97 % Rolando Reyesdiff Other [email or web address] Other 11-16-2022 11:45-0500 Systolic blood pressure 114 mm[Hg] Rolando Reyesdiff Other [email or web address] Other 11-14-2022 09:15-0500 Body height 170.18 cm Grecia Carrera Other [email or web address] Other 11-08-2022 14:57-0500 Blood Pressure Location [facility] [place] 11-08-2022 14:57-0500 Diastolic blood pressure 74 mm[Hg] Efrain NILL [facility] [place] 11-08-2022 14:57-0500 Heart rate 80 /min Efrain NILL [facility] 11-08-2022 14:57-0500 Respiratory rate 16 /min Efrain NILL [employer] [facility] [place] 11-08-2022 14:57-0500 Systolic blood pressure 118 mm[Hg] Efrain NILL [employer] [facility] [place] 10-23-2022 10:30-0500 Body height 170.18 cm Waqas Pierce Other [email or web address] Other 10-23-2022 10:30-0500 Body mass index (BMI) [Ratio] 46.04 kg/m2 Waqas Pierce Other [email or web address] Other 10-23-2022 10:30-0500 Body weight 133.36 kg Waqas Pierce Other [email or web address] Other 10-23-2022 10:30-0500 Diastolic blood pressure 88 mm[Hg] Waqas Pierce Other [email or web address] Other 10-23-2022 10:30-0500 Systolic blood pressure 148 mm[Hg] Waqas Pierce Other [email or web address] Other 10-13-2022 10:15-0500 Body height 170.18 cm Rachel Missler Other [email or web address] Other 10-13-2022 10:15-0500 Body mass index (BMI) [Ratio] 45.89 kg/m2 Rachel Missler Other [email or web address] Other 10-13-2022 10:15-0500 Body weight 132.9 kg Rachel Missler Other [email or web address] Other 10-13-2022 10:15-0500 Diastolic blood pressure 89 mm[Hg] Rachel Missler Other [email or web address] Other 10-13-2022 10:15-0500 Respiratory rate 18 /min Rachel Missler Other [email or web address] Other 10-13-2022 10:15-0500 SaO2% (BldA) [Mass fraction] 96 % Rachel Missler Other [email or web address] Other 10-13-2022 10:15-0500 Systolic blood pressure 138 mm[Hg] Rachel Missler Other [email or web address] Other 09-06-2022 16:00-0500 Body height 170.18 cm David Mcfarland II Other [email or web address] Other 09-06-2022 16:00-0500 Body mass index (BMI) [Ratio] 45.57 kg/m2 David Mcfarland II Other [email or web address] Other 09-06-2022 16:00-0500 Body weight 132 kg David Mcfarland II Other [email or web address] Other 07-25-2021 18:45-0400 Body height 170.18 cm Mallory Yuen Other [email or web address] Other 07-25-2021 18:45-0400 Body mass index (BMI) [Ratio] 42.91 kg/m2 Mallory Yuen Other [email or web address] Other 07-25-2021 18:45-0400 Body temperature 98.6 [degF] Mallory Yuen Other [email or web address] Other 07-25-2021 18:45-0400 Body weight 124.29 kg Mallory Yuen Other [email or web address] Other 07-25-2021 18:45-0400 Respiratory rate 18 /min Mallory Yuen Other [email or web address] Other 07-25-2021 18:45-0400 SaO2% (BldA) [Mass fraction] 96 % Mallory Yeun Other [email or web address] Other Encounters Encounter Date Encounter Type Care Provider Facility Start: 10-13-2024 End: 10-13-2024 ambulatory Angel Hill MD Facility: [facility] Start: 10-07-2024 Non-patient / Non-visit Waqas Pierce MD Work Phone: [facility] Work Phone: Start: 10-07-2024 End: 10-07-2024 Admission to same day surgery center Waqas Pierce MD Work Phone: [facility] Work Phone: Start: 10-07-2024 End: 10-07-2024 ambulatory Waqas Pierce MD Work Phone: [facility] Work Phone: Start: 09-29-2024 End: 09-29-2024 Patient encounter procedure Waqas Pierce MD Work Phone: [facility] Work Phone: Start: 09-29-2024 End: 09-29-2024 ambulatory Angel Hill MD Facility:[facility] Start: 09-18-2024 Non-patient / Non-visit Waqas Pierce MD Work Phone: [facility] Work Phone: Start: 09-16-2024 Non-patient / Non-visit Waqas Pierce MD Work Phone: [facility] Work Phone: Start: 09-11-2024 Registered Recurring Waqas dang MD Work Phone: [facility] Start: 09-11-2024 Non-patient / Non-visit Waqas Pierce MD Work Phone: [facility] Work Phone: Start: 08-27-2024 End: 08-27-2024 ambulatory David Mcfarland II Facility:[facility] Start: 08-27-2024 End: 08-27-2024 Patient encounter procedure Waqas Pierce MD Work Phone: [facility] Work Phone: Start: 08-25-2024 End: 08-25-2024 Patient encounter procedure Waqas Pierce MD Work Phone: [facility] Work Phone: Start: 08-18-2024 End: 08-18-2024 ambulatory Angel Hill MD Facility: [facility] Start: 08-04-2024 End: 08-04-2024 ambulatory [facility] Work Phone: Start: 08-04-2024 End: 08-04-2024 Patient encounter procedure [facility] Work Phone: Start: 07-25-2024 End: 07-25-2024 ambulatory ANITA [facility] Start: 07-15-2024 Non-patient / Non-visit [facility] Work Phone: Start: 06-19-2024 End: 06-19-2024 ambulatory [facility] Work Phone: Start: 06-19-2024 End: 06-19-2024 Patient encounter procedure [facility] Work Phone: Start: 06-17-2024 Non-patient / Non-visit [facility] Work Phone: Start: 06-16-2024 Patient encounter procedure [facility] Start: 06-16-2024 End: 06-16-2024 ambulatory [facility] Work Phone: Start: 06-16-2024 End: 06-16-2024 Patient encounter procedure [facility] Work Phone: Start: 05-23-2024 End: 05-23-2024 ambulatory [facility] Work Phone: Start: 05-23-2024 End: 05-23-2024 Patient encounter procedure [facility] Work Phone: Start: 02-21-2024 End: 02-21-2024 ambulatory MD Waqas Pierce Work Phone: [facility] Work Phone: Start: 02-21-2024 End: 02-21-2024 Patient encounter procedure MD Waqas Pierce Work Phone: [facility] Work Phone: Start: 01-15-2024 End: 01-15-2024 ambulatory NON STAFF [facility] Work Phone: Start: 01-15-2024 End: 01-15-2024 Patient encounter procedure [facility] Work Phone: Start: 01-11-2024 Non-patient / Non-visit [facility] Work Phone: Start: 01-10-2024 End: 01-10-2024 ambulatory MD Waqas Pierce Work Phone: [facility] Work Phone: Start: 01-10-2024 End: 01-10-2024 Patient encounter procedure MD Waqas Pierce Work Phone: [facility] Work Phone: Start: 01-03-2024 End: 01-03-2024 ambulatory MD Waqas Pierce Work Phone: [facility] Work Phone: Start: 01-03-2024 End: 01-03-2024 Patient encounter procedure MD Waqas Pierce Work Phone: [facility] Work Phone: Start: 12-26-2023 End: 12-26-2023 ambulatory MD Waqas Pierce Work Phone: [facility] Work Phone: Start: 12-26-2023 End: 12-26-2023 Patient encounter procedure MD Waqas Pierce Work Phone: [facility] Work Phone: Start: 12-10-2023 End: 12-10-2023 Patient encounter procedure MD Waqas Pierce Work Phone: [facility] Work Phone: Start: 12-04-2023 Registered Recurring MD Waqas Pierce Work Phone: [facility] [employer] Start: 11-28-2023 End: 11-28-2023 Patient encounter procedure MD Waqas Pierce Work Phone: [facility] Work Phone: Start: 11-28-2023 End: 11-28-2023 Patient encounter procedure MD Waqas Pierce Work Phone: [facility] Start: 11-28-2023 End: 11-28-2023 ambulatory David Mcfarland II Facility:[facility] Start: 11-22-2023 End: 11-22-2023 ambulatory NON STAFF [facility] Work Phone: Start: 11-22-2023 End: 11-22-2023 Patient encounter procedure [facility] Work Phone: Start: 11-21-2023 End: 11-21-2023 ambulatory NON STAFF [facility] Work Phone: Start: 11-21-2023 End: 11-21-2023 Patient encounter procedure [facility] Work Phone: Start: 11-20-2023 Registered Recurring MD Waqas Pierce Work Phone: [facility] Start: 11-19-2023 End: 11-19-2023 ambulatory NON STAFF [facility] Work Phone: Start: 11-19-2023 End: 11-19-2023 Patient encounter procedure [facility] Work Phone: Start: 11-01-2023 End: 11-01-2023 ambulatory Waqas Pierce Other [email or web address] Other Start: 11-01-2023 Office outpatient vi sit 15 minutes Waqas Pierce [facility] Start: 11-01-2023 End: 11-01-2023 Patient encounter procedure [facility]- Start: 10-31-2023 End: 10-31-2023 ambulatory Waqas Pierce Other [email or web address] Other Start: 10-31-2023 Telephone encounter Waqas Pierce [facility] Start: 10-23-2023 Registered Recurring MD Waqas Pierce Work Phone: [facility] [employer] Start: 10-17-2023 Postop follow up vis it related to original px David Bartolo II [facility] Start: 10-17-2023 End: 10-17-[address] [facility] Start: 10-17-2023 End: 10-17-[address] 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 Grecia Carrera [facility] Start: 10-15-2023 Registered Recurring [facility] Work Phone: Start: 10-15-2023 End: 10-15-2023 ambulatory David Mcfarland II [email or web address] Other Start: 10-15-2023 End: 10-15-2023 Patient encounter procedure [facility] Work Phone: Start: 10-02-2023 End: 10-02-2023 ambulatory Rolando Castellanos Other [email or web address] Other Start: 10-02-2023 Telephone encounter Rolando Vasquez [facility] Start: 09-19-2023 End: 09-19-2023 ambulatory David Bartolo II Other [email or web address] Other Start: 09-19-2023 Postop follow up vis it related to original px Carrie Perea [facility] Start: 09-19-2023 Telephone encounter David Mcfarland II [facility] Start: 09-19-2023 End: 09-19-2023 Patient encounter procedure [facility] Work Phone: Start: 09-18-2023 End: 09-18-2023 ambulatory Rolando Castellanos Other [email or web address] Other Start: 09-18-2023 Follow-up encounter Rolando Castellanos [facility] Start: 09-18-2023 End: 09-18-2023 Patient encounter procedure [facility] Work Phone: Start: 09-17-2023 ([facility] RD FU) [facility] F/ U Registerd 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 Grecia Carrera [facility] Start: 09-17-2023 End: 09-17-2023 ambulatory Grecia Carrera Other [employer] [facility] [email or web address] Other Start: 09-17-2023 End: 09-17-2023 Patient encounter procedure [facility] Work Phone: Start: 09-10-2023 End: 09-10-2023 ambulatory David Bartolo B[facility] Other [employer] Other Start: 09-10-2023 Telephone encounter David Mcfarland II [facility] Start: 09-03-2023 End: 09-03-2023 Admission to same day surgery center MD Waqas Pierce Work Phone: [facility] [place] Start: 09-03-2023 End: 09-03-2023 ambulatory MD Waqas Pierce Work Phone: [facility] Work Phone: Start: 08-31-2023 (Prolonged) Prolonge d Services David Mcfarland II [facility] Start: 08-31-2023 End: 08-31-2023 ambulatory David Rockford II Other [email or web address] Other Start: 08-31-2023 Registered Recurring MD Waqas Pierce Work Phone: [facility] [place] Start: 08-30-2023 End: 08-30-2023 ambulatory David Rdzle II Other [email or web address] Other Start: 08-30-2023 Office outpatient vi sit 40 minutes David Rockford II [facility] Start: 08-28-2023 End: 08-28-2023 ambulatory MD Waqas Pierce Work Phone: [facility] Work Phone: Start: 08-28-2023 End: 08-28-2023 Patient encounter procedure MD Waqas Pierce Work Phone: [facility] Work Phone: Start: 08-28-2023 Registered Recurring [facility] Start: 08-21-2023 End: 08-21-2023 ambulatory Waqas Pierce Other [email or web address] Other Start: 08-21-2023 Encounter for other preprocedural examination Waqas Pierce [facility] Start: 08-21-2023 Office outpatient vi sit 25 minutes Waqas Pierce [facility] Start: 08-15-2023 End: 08-15-2023 ambulatory MD Waqas Pierce Work Phone: [facility] Work Phone: Start: 08-15-2023 End: 08-15-2023 Patient encounter procedure MD Waqas Pierce Work Phone: [facility] Start: 08-13-2023 Registered Recurring MD Waqas Pierce Work Phone: 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 Grecia Carrera [facility] Start: 08-13-2023 End: 08-13-2023 ambulatory Grecia Carrera Other [email or web address] Other Start: 08-06-2023 End: 08-06-2023 ambulatory David Bartolo [facility] Other [email or web address] Other Start: 08-06-2023 Telephone encounter David Mcfarland II [facility] Start: 08-01-2023 End: 08-01-2023 ambulatory Waqas Pierce Other [email or web address] Other Start: 08-01-2023 Telephone encounter Waqas Pierce [facility] Start: 07-31-2023 (Televisit) Televisit Waqas Pierce [facility] Start: 07-31-2023 End: 07-31-2023 ambulatory Waqas Pierce Other [email or web address] Other Start: 07-26-2023 End: 07-26-2023 ambulatory Rolando Castellanos Other [email or web address] Other Start: 07-26-2023 Follow-up encounter Rolando dhillon [facility] Start: 07-26-2023 Telephone encounter David Mcelroyyang BAU[facility] Start: 07-23-2023 ([facility] RD FU) [facility] F/ U Registerd 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 Grecia Carlroberto [facility] Start: 07-23-2023 End: 07-23-2023 ambulatory Grecia Carrera Other [email or web address] Other Start: 07-09-2023 End: 07-09-2023 ambulatory Rolando Castellanos Other [email or web address] Other Start: 07-09-2023 Telephone encounter Rolando dhillon [facility] Start: 06-27-2023 End: 06-27-2023 ambulatory David Mcfarland II Other [email or web address] Other Start: 06-27-2023 Office outpatient vi sit 25 minutes David Mcfarland II [facility] Start: 06-19-2023 End: 06-19-2023 ambulatory Waqas Pierce Other [email or web address] Other Start: 06-19-2023 Telephone encounter Waqas Pierce [facility] Start: 06-18-2023 ([facility] RD FU) [facility] F/ U 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 Grecia Carrera [facility] Start: 06-18-2023 End: 06-18-2023 ambulatory Grecia Carrera Other [email or web address] Other Start: 06-14-2023 End: 06-14-2023 ambulatory oRlando Castellanos Other [email or web address] Other Start: 06-14-2023 Follow-up encounter Rolando dhillon [facility] Start: 06-11-2023 End: 06-11-2023 ambulatory Waqas Pierce Other [email or web address] Other Start: 06-11-2023 Encounter for genera l adult medical examination without abnormal findings Waqas Pierce [facility] Start: 06-11-2023 Periodic preventive med est patient 40-64yrs Waqas Pierce [facility] Start: 06-01-2023 End: 06-01-2023 ambulatory Waqas Pierce Other [email or web address] Other Start: 06-01-2023 Telephone encounter Waqas Pierce [facility] Start: 05-28-2023 End: 05-28-2023 ambulatory Waqas Pierce Other [email or web address] Other Start: 05-28-2023 Telephone encounter Waqas Pierce [facility] Start: 05-14-2023 ([facility] RD FU) [facility] F/ U Registerd 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 Grecia Henryt [facility] Start: 05-14-2023 End: 05-14-2023 ambulatory Grecia Fitt Other [email or web address] Other Start: 04-16-2023 ([facility] RD FU) [facility] F/ U Registerd 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 Facil ity:H1 Start: 02-13-2023 End: 02-14-2023 ambulatory AMY KASPER Facility:H1 Start: 01-31-2023 End: 01-31-2023 ambulatory Waqas Pierce Other [email or web address] Other Start: 01-31-2023 Telephone encounter Waqas Pierce [facility] Start: 01-30-2023 End: 01-31-2023 ambulatory AMY KASPER Facility:H1 Start: 01-19-2023 End: 01-20-[address] ROLANDO CASTELLANOS Facility:H1 Start: 01-11-2023 ([facility] WMNI) WMN Init ial Provider Grecia Carlt [facility] Start: 01-11-2023 End: 01-11-2023 ambulatory Grecia Fitt Other [email or web address] Other Start: 01-09-2023 End: 01-10-2023 ambulatory AMY KASPER Facility:H1 Start: 12-25-2022 End: 12-25-2022 ambulatory Junior Mcgowan Other [email or web address] Other Start: 12-25-2022 Telephone encounter Junior King [facility] Start: 12-22-2022 End: 12-23-2022 ambulatory AMY KSAPER Facility:H1 Start: 12-18-2022 End: 12-18-2022 ambulatory Junior Mcgowan Other [email or web address] Other Start: 12-18-2022 Telephone encounter Junior King [facility] Start: 12-15-2022 End: 12-15-2022 ambulatory Waqas Pierce Other [email or web address] Other Start: 12-15-2022 Telephone encounter Waqas Pierce [facility] Start: 12-12-2022 Telephone encounter Rolando Vasquez [facility] Start: 12-12-2022 End: 12-13-[address] WAQAS PIERCE Finley [facility] Other Start: 12-06-2022 Telephone encounter Waqas Pierce [facility] Start: 12-06-2022 End: 12-07-2022 ambulatory Efrain CORTES [email or web address] Other Start: 12-01-2022 End: 12-02-[address] WAQAS PIERCE Facility:H1 Start: 11-20-2022 End: 11-20-2022 ambulatory Rolando Castellanos Other [email or web address] Other Start: 11-20-2022 Telephone encounter Rolando Vasquez [facility] Start: 11-17-2022 Telephone encounter Waqas Pierce [facility] Start: 11-17-2022 End: 11-18-[address] WAQAS PIERCE [facility] Other Start: 11-16-2022 End: 11-16-2022 ambulatory Rolando Castellanos Other [email or web address] Other Start: 11-16-2022 Follow-up encounter Rolando dhillon [facility] Start: 11-14-2022 End: 11-14-2022 ambulatory Grecia Carrera Other [email or web address] Other Start: 11-14-2022 IBT FOR OBESITY GROU P 2-10 30M Grecia Carrera [facility] Start: 11-13-2022 End: 11-13-2022 ambulatory Waqas Pierce Other [email or web address] Other Start: 11-13-2022 Telephone encounter Waqas Pierce [facility] Start: 11-08-2022 End: 11-09-2022 ambulatory Efrain CORTES Facility:[facility] Start: 11-08-2022 End: 11-08-2022 Patient encounter procedure Efrain CORTES General Surgery [facility] Start: 11-06-2022 End: 11-07-[address] WAQAS PIERCE Facility:H1 Start: 11-05-2022 Encounter for gynecological examination (general) (routine) without abnormal findings DR FRIEDA LOCKE . [facility] Start: 11-03-2022 End: 11-04-[address] WAQAS PIERCE Facility:H1 Start: 10-30-2022 End: 10-31-[address] WAQAS PIERCE Facility:H1 Start: 10-25-2022 End: 10-25-2022 ambulatory Waqas Pierce Other [email or web address] Other Start: 10-25-2022 Telephone encounter Waqas Pierce [facility] Start: 10-24-2022 End: 10-24-2022 ambulatory Rolando Castellanos Other [email or web address] Other Start: 10-24-2022 Telephone encounter Rolando dhillon [facility] Start: 10-23-2022 Office outpatient vi sit 15 minutes Waqas Pierce [facility] Start: 10-23-2022 Telephone encounter Waqas Pierce [facility] Start: 10-23-2022 End: 10-24-[address] [facility] Work Phone: Start: 10-23-2022 End: 10-23-[address] [facility] Work Phone: Start: 10-20-2022 End: 10-20-2022 ambulatory Waqas Pierce Other [email or web address] Other Start: 10-20-2022 Telephone encounter Waqas Pierce [facility] Start: 10-17-2022 End: 10-18-[address] WAQAS PIERCE Facility:H1 Start: 10-13-2022 End: 10-13-2022 ambulatory Rachel Vela Other [email or web address] Other Start: 10-13-2022 Nutrition therapy Rachel Vela [facility] Start: 10-13-2022 Telephone encounter Rachel Vela [facility] Start: 10-13-2022 Registered Rec[facility]ring [facility] Work Phone: Start: 10-10-2022 End: 10-11-[address] WAQAS PIERCE Facility:H1 Start: 10-06-2022 End: 10-06-2022 ambulatory Waqas Pierce Other [email or web address] Other Start: 10-06-2022 Telephone encounter Waqas Pierce [facility] Start: 10-04-2022 (Procedure) Short Junior Mcgowan [facility] Start: 10-04-2022 End: 10-04-2022 ambulatory Junior Mcgowan Other [email or web address] Other Start: 10-03-2022 End: 10-04-[address] WAQAS PIERCE [email or web address] Other Start: 10-03-2022 Telephone encounter Junior King [facility] [place] Start: 09-27-2022 End: 09-27-2022 ambulatory Junior Mcgowan Other [email or web address] Other Start: 09-27-2022 Telephone encounter Junior Begumafshan DARNELL [facility] Start: 09-19-2022 End: 09-20-[address] WAQAS PIERCE Facility:H1 Start: 09-11-2022 End: 09-12-[address] WAQAS PIERCE Facility:[facility]1 Start: 09-06-2022 End: 09-06-[address] [facility] Start: 09-06-2022 End: 09-06-[address] [facility] Work Phone: Start: 09-06-2022 FQHC visit new patient David davalos II [facility] Start: 08-28-2022 End: 08-29-[address] WAQAS PIERCE Facility:[facility]1 Start: 08-18-2022 Adult health examination Grecia Fitt Other [email or web address] Other Start: 08-18-2022 Gynecological examination normal Grecia Fitt Other [email or web address] Other Start: 08-18-2022 End: 08-19-[address] [...] 04-25-2022 Encounter for other preprocedural examination AMY [facility] Start: 04-24-[address] WAQAS PIERCE Facil ity:H1 Start: 04-22-2022 End: 04-25-2022 Evaluation and management of inpatient SHAIKH Carlos FRITZ Facility:H1 Start: 04-21-2022 End: 04-22-[address] WAQAS PIERCE Facility:[facility]1 Start: 04-21-2022 End: 04-22-2022 Encounter for other preprocedural examination DR WAQAS PIERCE Facility:[facility]1 Start: 04-14-2022 End: 04-15-[address] WAQAS PEIRCE Facility:H1 Start: 03-31-2022 End: 04-01-[address] WAQAS PIERCE Facility:[facility]1 Start: 03-17-2022 End: 03-18-[address] WAQAS PIERCE Facility:[facility]1 Start: 03-11-2022 End: 03-12-[address] WAQAS PIERCE Facility:[facility]1 Start: 07-26-2021 Pre-procedure evalua tion nati Carrera Other [email or web address] Other Start: 07-25-2021 Office outpatient vi sit 15 minutes Mallory Yuen [facility] Start: 06-23-2021 Office outpatient vi sit 25 minutes Junior Mcgowan [facility] [place] Start: 06-23-2021 Telephone encounter [facility] Start: 12-16-2020 End: 12-17-2020 ambulatory REFERRED SELF Facility:[facility] Procedures Date Procedure Procedure Detail Performing [...] WAQAS PIERCE Start: 04-24-2022 Insertion of Tissue Operations Tech into Left Foot Subcutaneous Tissue and Fascia, [...] Date Care Activity Detail Author Start: 10-07-2024 [facility] Start: 08-12-2024 Patient referral [facility] Work Phone: Start: 09-03-2023 Hospital admission [facility] Start: 09-03-2023 End: 09-03-2023 [facility] Start: 09-03-2023 Physical therapy procedure [facility] Start: 08-28-2023 [facility] Start: 08-28-2023 Bacteria identified in Urine by Culture [facility] aPTT in Platelet poo r plasma by Coagulation assay [facility] Bacteria identified in Urine by Culture [facility] CT Chest WO and W contrast IV [facility] Patient Education [facility] Work Phone: Patient referral [facility] Work Phone: XR Chest 2 Views [facility] XR Chest 2 Views [facility] XR Chest 2 Views [facility] Immunizations Immunization Date Immunization Notes Care Provider Fa cili 08-16-2024 COVID-19 Ad26.COV2.S (Salvador) Waqas Pierce MD Work Phone: [facility] 08-16-2024 influenza, seasonal, injectable Waqas Pierce MD Work Phone: [facility] 09-28-2023 COVID-19 (PFIZER) 12Y and older MD Waqas Pierce Work Phone: [facility] 09-28-2023 influenza, injectabl e, quadrivalent, preservative free MD Waqas Pierce Work Phone: [facility] 08-31-2022 COVID-19 (Pfizer) Bivalent Booster, Age 12Y+ [facility] 08-31-2022 influenza virus vaccine, unspecified formulation Efrain CORTES [facility] [place] 08-31-2022 influenza, injectabl e, quadrivalent, preservative free MD Waqas Pierce Work Phone: [facility] 08-31-2022 SARS-CoV-2 (COVID-19 ) [id number] Efrain CORTES [facility] [place] 02-24-2022 COVID-19 (Pfizer); Translations: [COVID-19 (Pfizer)] MD Waqas Pierce Work Phone: [facility] 02-24-2022 COVID-19 Comirnaty (Pfizer) Tri-Sucrose 12+ MD Waqas Pierce Work Phone: [facility] 02-24-2022 SARS-CoV-2 mRNA (rqmqbdpbnqv-zzgt-poaun se) vaccine Efrain CORTES [facility] 11-20-2021 influenza, injectabl e, quadrivalent, preservative free MD Waqas Pierce Work Phone: [facility] 08-19-2021 COVID-19 (Pfizer) [facility] 08-19-2021 SARS-CoV-2 (COVID-19 ) mRNA BNT-162b2 vax Efrain CORTES [facility] 01-19-2021 COVID-19 (Pfizer) [facility] 01-19-2021 SARS-CoV-2 (COVID-19 ) mRNA BNT-162b2 [employer] Efrain RABAGOL [facility] 12-31-2020 COVID-19 (Pfizer) [facility] 12-31-2020 SARS-CoV-2 (COVID-19 ) mRNA BNT-162d8 [employer] Efrain CORTES [facility] 06-25-2020 influenza virus vaccine, split virus (incl. purified surface antigen) Grecia Carrera Other [email or web address] Other 06-25-2020 influenza virus vaccine, unspecified formulation [facility] 06-25-2020 influenza, injectabl e, quadrivalent, preservative free MD Waqas Pierce Work Phone: [facility] 06-25-2020 pneumococcal polysaccharide vaccine, 23 valent Grecia Carrera Other [facility] 07-30-2019 influenza, injectabl e, quadrivalent, contains preservative MD Waqas Pierce Work Phone: [facility] 07-12-2018 influenza, injectabl e, quadrivalent, preservative free MD Waqas Pierce Work Phone: [facility] 11-15-2016 influenza, injectabl e, quadrivalent, preservative free MD Waqas Pierce Work Phone: [facility] Payers Date Payer Category Payer Private Health Insurance [id number] 2023 Private Health Insurance 2022 Self-pay [id number] 1962 Unknown [id number] 2.16.840.1.721783.3.579.2.647 1962 Unknown [id number] 2.16.840.1.225979.3.579.2.727 1962 Unknown [id number] 2.16.840.1.320375.3.579.2.727 1962 Unknown [id number] 2.16.840.1.030510.3.579.2.593 1962 Unknown [id number] 2.16.840.1.961902.3.579.2.593 1962 Unknown [id number] 2.16.840.1.622288.3.579.2.593 1962 Unknown [id number] 2.16.840.1.582466.3.579.2.593 1962 Unknown [id number] 2.16.840.1.404678.3.579.2.593 1962 Unknown [id number] 2.16.840.1.083146.3.579.2.593 1962 Unknown [id number] 2.16.840.1.631036.3.579.2.593 1962 Unknown [id number] 2.16.840.1.113623.3.579.2.593 1962 Unknown [id number] 2.16.840.1.874316.3.579.2.593 1962 Unknown [id number] 2.16.840.1.215640.3.579.2.593 1962 Unknown [id number] 2.16.840.1.005929.3.579.2.593 1962 Unknown [id number] 2.16.840.1.319854.3.579.2.593 1962 Unknown [id number] 2.16.840.1.394992.3.579.2.593 1962 Unknown [id number] 2.16.840.1.130392.3.579.2.593 1962 Unknown [id number] 2.16.840.1.869797.3.579.2.593 1962 Unknown [id number] 2.16.840.1.106687.3.579.2.593 1962 Unknown [id number] 2.16.840.1.934733.3.579.2.593 1962 Unknown [id number] 2.16.840.1.664152.3.579.2.593 1962 Unknown [id number] 2.16.840.1.711693.3.579.2.593 1962 Unknown [id number] 2.16.840.1.670022.3.579.2.593 1962 Unknown [id number] 2.16.840.1.941021.3.579.2.593 1962 Unknown [id number] 2.16.840.1.039867.3.579.2.593 1962 Unknown [id number] 2.16.840.1.383706.3.579.2.593 1962 Unknown [id number] 2.16.840.1.121473.3.579.2.593 1962 Unknown [id number] 2.16.840.1.013038.3.579.2.593 1962 Unknown [id number] 2.16.840.1.142145.3.579.2.593 1962 Unknown [id number] 2.16.840.1.989674.3.579.2.593 1962 Unknown [id number] 2.16.840.1.270311.3.579.2.593 1962 Unknown [id number] 2.16.840.1.921957.3.579.2.593 1962 Unknown [id number] 2.16.840.1.756563.3.579.2.593 1962 Unknown [id number] 2.16.840.1.288150.3.579.2.593 1962 Unknown [id number] 2.16.840.1.114228.3.579.2.593 1962 Unknown [id number] 2.16.840.1.403009.3.579.2.593 1962 Unknown [id number] 2.16.840.1.225820.3.579.2.593 1962 Unknown [id number] 2.16.840.1.017044.3.579.2.593 1962 Unknown [id number] 2.16.840.1.363747.3.579.2.593 1962 Unknown [id number] 2.16.840.1.280842.3.579.2.593 1962 Unknown [id number] 2.16.840.1.589443.3.579.2.593 1962 Unknown [id number] 2.16.840.1.133698.3.579.2.593 1962 Unknown [id number] 2.16.840.1.708951.3.579.2.593 1962 Unknown [id number] 2.16.840.1.419786.3.579.2.593 1962 Unknown [id number] 2.16.840.1.045696.3.579.2.593 1962 Unknown [id number] 2.16.840.1.596733.3.579.2.593 1962 Unknown [id number] 2.16.840.1.600561.3.579.2.196 1962 Unknown [id number] 2.16.840.1.189993.3.579.2.196 1962 Unknown [id number] 2.16.840.1.817310.3.579.2.196 1959 Unknown [id number] 2.16. 840.1.793300.19 1959 Unknown [id number] Medicare Medicare [id number] Unknown [id number] 2.16.840.1.580272.3.579.2.531 Worker's Compensation [id number] Worker's Compensation [facility] [id number] Social History Date Type Detail Facility Unknown if ever smoked [email or web address] Other [facility] At [facility] Start: 1960 Sex Assigned At Female F [facility] Start: 11-08-2022 End: 10-07-2024 Tobacco smoking status Ex-smoker (finding) [facility] Comment on above: smoked one year, souleymane t 30 years ago Tobacco smoking status Never Gener al Surgery [facility] Comment on above: smoked one year, souleymane t 30 years ago Start: 10-07-2024 Sex Female (finding) [facility] Medical Equipment Procedure Code Equipment Code Equipment Origin al Text Equipment Identifier Dates Arthroplasty, hip, total, anterior approach Acetabular shell [id number] FDA Start: 09-03-2023 Arthroplasty, hip, total, anterior approach Ceramic femoral head prosthesis ()[id number] FDA Start: 09-03-2023 Arthroplasty, hip, total, anterior approach Coated hip femur prosthesis, modular ()[id number] FDA Start: 09-03-2023 Arthroplasty, hip, total, anterior approach Non-constrained polyethylene acetabular liner ()[id number] FDA Start: 09-03-2023 Start: 02-13-2023 Goals Date Patient Goal Desired Activity /State Functional Status Date Assessment Result Facility 11-08-2022 Functional Status N/A [facility] viky Hernandez Clinical Notes 06-23-2021 to 10-07-2024 Note Date & Type Note Facility 10-07-2024 Procedure note [facility] 10-07-2024 History and physi kay note [facility] 08-04-2024 Evaluation note Diagnosis Onset Date Resolution Anemia acute August 04, 2024 10:40am Bloating acute August 04, 2024 10:40am Chronic low back pain acute Aug 10:40am Fatty liver acute August 04, 2024 10:40am Sinusitis, acute maxillary acute August 25, 2 024 1:42pm Aftercare following joint replacement acute August 27, 2024 12:14pm S/P total right hip arthroplasty acute August 27, 024 12:14pm BMI 40.0-44.9, adult acute Dece mb2023 1:33pm Left lower lobe pneumonia acute September 29, 024 1:33pm [facility] Work Phone: [phone] 287-876610-25-2024 NoteCardiology Follow Up Progress Note Chief Complaint: [...] Patient is following with hematology here at [facility] for anemia. No edema, orthopnea, or [...] 1 TABLET BY MOUTH TWICE DAILY HYDROcodone-acetaminophen ([place]) 5-325 mg tablet hydrocodone 5 mg-acetaminophen 325 [...] as needed Anita Tafoya (more content not included)...[facility]04-04-2024 Evaluation note* Author Rolando Castellanos [facility] Authored January 03, 2024 11:3 9am [...] given. 1. Prediabetes most recent A1c of 5.3-rikzg-oxly treatment with long-term healthy lifestyle change, decreased [...] decreased. She continues to work with our palaeontologist. She understands the need for preplanning, following the plate method, having healthy foods around, keeping unhealthy foods out of her house and eating healthy Whole Foods. She does not like to cook or prep. She understands that shopping, chopping and preplanning so that she can eat healthy foods is essential to her recovery. She will continue to work with our palaeontologist. We could consider Wellbutrin in the future [...] TSH with her PCP. Author Estephania Mao [facility] Authored February 21, 2024 10:30 am [...] given. 1. Prediabetes most recent A1c of 5.9-fmfxj-vdll treatment with long-term healthy lifestyle change, decreased [...] decreased. She continues to work with our palaeontologist. She understands the need for preplanning, following the plate method, having healthy foods around, keeping unhealthy foods out of her house and eating healthy [employer] Foods. She does not like to cook or prep. She understands that shopping, chopping and preplanning so that she can eat healthy foods is essential to her recovery. She will continue to work with our palaeontologist. We could consider Wellbutrin in the future [...] and TSH with her PCP. [facility] Work Phone: 1(944) 454-835204-04-2024 Evaluation note* Author Rolando Castellanos [facility] Authored January 03, 2024 11:3 9am [...] given. 1. Prediabetes most recent A1c of 5.5-sagub-mqgl treatment with long-term healthy lifestyle change, decreased [...] decreased. She continues to work with our palaeontologist. She understands the need for preplanning, following the plate method, having healthy foods around, keeping unhealthy foods out of her house and eating healthy Whole Foods. She does not like to cook or prep. She understands that shopping, chopping and preplanning so that she can eat healthy foods is essential to her recovery. She will continue to work with our palaeontologist. We could consider Wellbutrin in the future [...] TSH with her PCP. Author Rolando Castellanos [facility] Authored February 21, 2024 10:49 am [...] given. 1. Prediabetes most recent A1c of 5.6-hcmyi-zmar treatment with long-term healthy lifestyle change, decreased [...] to continue to work closely with our facility examiner. She understands the need for preplanning, following the plate method, having healthy foods around, keeping unhealthy foods out of her house and eating healthy Whole Foods. She does not like to cook or prep. She understands that shopping, chopping and preplanning so that she can eat healthy foods is essential to her recovery. She will continue to work with our palaeontologist. We could consider Wellbutrin in the future [...] and TSH with her PCP. [facility] Work Phone: 1(676) 322-625002-22-2024 Evaluation note* Author Rolando Castellanos [facility] Authored November 22, 2023 12:47pm Highest weight in program: 306.2. She is down 43.6 lbs. Start weight: 293.0 lbs. She is down 30.4lbs. today with a weight of 262.6 lbs she is up 4.3 lbs. since her last visit on 09/18/2023. Starting Date: 10/13/2022. Wegovy start date 01/17/2023. Deannavazra start weight 306.2 pounds, she is down 43.6 lbs. Sample given. 1. Prediabetes most recent A1c of 5.9-cdvql-molq treatment with long-term healthy lifestyle change, decreased [...] house. She continues to work with our palaeontologist. She understands the need for preplanning, following the plate method, having healthy foods around, keeping unhealthy foods out of her house and eating healthy Whole Foods. She does not like to cook or prep. She understands that shopping, chopping and preplanning so that she can eat healthy foods is essential to her recovery. She will continue to work with our palaeontologist. We could consider Wellbutrin in the future [...] and TSH with her PCP. [facility] Work Phone: 1(964) 211-828502-22-2024 Evaluation note* Author Rolando Castellanos [facility] Authored November 22, 2023 12:47pm Highest [...] given. 1. Prediabetes most recent A1c of 5.5-ofhma-ulqf treatment with long-term healthy lifestyle change, decreased [...] house. She continues to work with our palaeontologist. She understands the need for preplanning, following the plate method, having healthy foods around, keeping unhealthy foods out of her house and eating healthy Whole Foods. She does not like to cook or prep. She understands that shopping, chopping and preplanning so that she can eat healthy foods is essential to her recovery. She will continue to work with our palaeontologist. We could consider Wellbutrin in the future [...] TSH with her PCP. Author Estephania Mao [facility] Authored January 03, 2024 11:1 8am [...] given. 1. Prediabetes most recent A1c of 5.8-qnetk-qqmd treatment with long-term healthy lifestyle change, decreased [...] house. She continues to work with our palaeontologist. She understands the need for preplanning, following the plate method, having healthy foods around, keeping unhealthy foods out of her house and eating healthy Whole Foods. She does not like to cook or prep. She understands that shopping, chopping and preplanning so that she can eat healthy foods is essential to her recovery. She will continue to work with our palaeontologist. We could consider Wellbutrin in the future [...] and TSH with her PCP. [facility] Work Phone: 1(883) 616-140402-22-2024 Evaluation note* Author Rolando Castellanos [facility] Authored November 22, 2023 12:47pm Highest [...] given. 1. Prediabetes most recent A1c of 5.7-qjrfb-mciv treatment with long-term healthy lifestyle change, decreased [...] house. She continues to work with our palaeontologist. She understands the need for preplanning, following the plate method, having healthy foods around, keeping unhealthy foods out of her house and eating healthy Whole Foods. She does not like to cook or prep. She understands that shopping, chopping and preplanning so that she can eat healthy foods is essential to her recovery. She will continue to work with our palaeontologist. We could consider Wellbutrin in the future [...] TSH with her PCP. Author Rolando Castellanos [facility] Authored January 03, 2024 11:3 9am [...] given. 1. Prediabetes most recent A1c of 5.0-iacya-cwhe treatment with long-term healthy lifestyle change, decreased [...] decreased. She continues to work with our palaeontologist. She understands the need for preplanning, following the plate method, having healthy foods around, keeping unhealthy foods out of her house and eating healthy Whole Foods. She does not like to cook or prep. She understands that shopping, chopping and preplanning so that she can eat healthy foods is essential to her recovery. She will continue to work with our palaeontologist. We could consider Wellbutrin in the future [...] and TSH with her PCP. [facility] Work Phone: 1(200) 369-435002-01-2024 Evaluation note* Encounter Date Diagnosis Assessment Notes Treatment Notes Treatment Clinical Notes Nov, Hypothyroidism (ICD-10 - E03.9) Pt due for labs - will recheck Nov, Elevated fasting glucose (ICD-10 - R73.01) Continue healthy diet and exercise as able. [email or web address] Other 01-17-2024 Evaluation note* Encounter Date Diagnosis Assessment Notes Treatment Notes Treatment Clinical Notes Oct, Aftercare following joint replacement surgery (ICD-10 - Z47.1) Oct, Presence of right artificial hip joint (ICD-10 - Z96.641) Oct, Other [facility] on 09/03/2023 Doing well Patient may continue increasing activities as tolerated. Continue taking bixc-uvg-qeyqaqc anti-inflammatorie s as needed for assistance with swelling and pain associated with the operative extremity. Follow-up in 6 weeks for repeat examination and repeat x-rays. [email or web address] Other 01-15-2024 Evaluation note* Encounter Date Diagnosis Assessment Notes Treatment Notes Treatment Clinical Notes Oct, Obesity (ICD-10 - E66.9) Oct, BMI 40.0-44.9, adult (ICD-10 - Z68.41) Oct, Other Summary of Visi t: (A) Discussed including more vegetables (B) Discussed plant proteins (C) Provided recipes [email or web address] Other 01-02-2024 Evaluation note* Encounter Date Diagnosis Assessment Notes Treatment Notes Treatment Clinical Notes Oct, Hypothyroidism (ICD-10 - E03.9) [email or web address] Other 12-20-2023 Evaluation note* Encounter Date Diagnosis [...] right artificial hip joint (ICD-10 - Z96.641) [email or web address] Other 12-19-2023 Evaluation note* Encounter Date Diagnosis [...] Aug, Metabolic syndrome X (ICD-10 - E88.81) [email or web address] Other 12-19-2023 Evaluation note* Author Rolando Castellanos [facility] Authored November 22, 2023 11:47am Highest [...] given. 1. Prediabetes most recent A1c of 5.3-cdyoy-xfqb treatment with long-term healthy lifestyle change, decreased [...] house. She continues to work with our palaeontologist. She understands the need for preplanning, following the plate method, having healthy foods around, keeping unhealthy foods out of her house and eating healthy Whole Foods. She does not like to cook or prep. She understands that shopping, chopping and preplanning so that she can eat healthy foods is essential to her recovery. She will continue to work with our palaeontologist. We could consider Wellbutrin in the future [...] and TSH with her PCP. [facility] Work Phone: 1(250) 332-351612-18-2023 Evaluation note* Encounter Date Diagnosis Assessment Notes Treatment Notes Treatment Clinical Notes Aug, Obesity (ICD-10 - E66.9) Aug, BMI 40.0-44.9, adult (ICD-10 - Z68.41) Aug, Other Summary of Visi t: (A) Discussed including more vegetables (B) Answered general nutrition-related questions (C) DIscussed options for including more water [email or web address] Other 12-01-2023 Evaluation note* Encounter Date Diagnosis [...] patient could proceed with surgery safely. The paper sales manager was vital for surgery timing and [...] plans. Prolonged services time spent: 31 minutes [email or web address] Other 11-30-2023 Evaluation note* Encounter Date Diagnosis [...] therapy arrives. Joints Meeting Checklist - Pharmacy: [facility] med to bed - Approach/Technique: anterior, [place] bed - Implants: Avenir Complete/G7; - Anesthesia: general vs spinal - Blocks: Fascia iliaca - Preop Antibiotics: Ancef and Vanco - TXA: yes-systemic - Positioning/OR Bed: supine on [place] bed - Intraop X-ray: yes - Alejandra: [...] above surgery. OARRS report generated and reviewed. [email or web address] Other 11-21-2023 Evaluation note* Encounter Date Diagnosis [...] symptoms. Any developing patterns. Stay well hydrated. [email or web address] Other 11-13-2023 Evaluation note* Encounter Date Diagnosis Assessment Notes Treatment Notes Treatment Clinical Notes Aug, Obesity (ICD-10 - E66.9) Aug, BMI 40.0-44.9, adult (ICD-10 - Z68.41) Aug, Other Summary of Visi t: (A) Continue current regimen (B) Much emotional support provided today (C) Encouraged continued follow up with counselor [email or web address] Other 10-31-2023 Evaluation note* Encounter Date Diagnosis Assessment Notes Treatment Notes Treatment Clinical Notes Jul, Acute laryngitis (ICD-10 - J04.0) Patient denies bacterial infection symptoms such as fever facial pressure or chills. Patient has not taken a COVID test. Discussed isxy-hcy-cbxuvmn medications to use along with steroid pills that can improve her discomfort and laryngitis going forward. Advised that the steroids could elevate her blood sugar and to be mindful of that accordingly. [email or web address] Other 10-26-2023 Evaluation note* Encounter Date Diagnosis Assessment Notes Treatment Notes Treatment Clinical Notes Jul, Prediabetes (ICD-10 - R73.09) Jul, BMI 40.0-44.9, adult (ICD-10 - Z68.41) Jul, Hypothyroidism (ICD-10 - E03.9) Jul, Hypertension (ICD-10 - I10) Jul, Fatty liver (ICD-10 - K76.0) Jul, HERREAR (obstructive sleep apnea) (ICD-10 - G47.33) Jul, Mixed hyperlipidemia (ICD-10 - E78.2) Jul, Depression (ICD-10 - F32.9) Jul, Low back derangement syndrome (ICD-10 - M53.86) Jul, Hip arthritis (ICD-1 0 - M16.10) Jul, Palpitations (ICD-10 - R00.2) Jul, GERD (gastroesophageal reflux disease) (ICD-10 - K21.9) Jul, Metabolic syndrome X (ICD-10 - E88.81) [email or web address] Other 10-26-2023 Evaluation note* Encounter Date Diagnosis Assessment Notes Treatment Notes Treatment Clinical Notes Jul, 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 (ICD-10 - Z79.899) Jul, Other osteoporosis without current pathological fracture (ICD-10 - M81.8) Jul, Osteoarthritis of right hip (ICD-10 - M16.11) [email or web address] Other 10-23-2023 Evaluation note* Encounter Date Diagnosis Assessment Notes Treatment Notes Treatment Clinical Notes Jul, Obesity (ICD-10 - E66.9) Jul, BMI 40.0-44.9, adult (ICD-10 - Z68.41) Jul, Other Summary of Visi t: (A) Continue current regimen (B) Discussed ways to include more water (C) Discussed ways to include more vegetables [email or web address] Other 09-27-2023 Evaluation note* Encounter Date Diagnosis [...] the patient works on weight loss management. [email or web address] Other 09-18-2023 Evaluation note* Encounter Date Diagnosis [...] meals available that fit the plate method [email or web address] Other 09-14-2023 Evaluation note* Encounter Date Diagnosis [...] Jun, Metabolic syndrome X (ICD-10 - E88.81) [email or web address] Other 09-11-2023 Evaluation note* Encounter Date Diagnosis [...] E55.9) discussed supplementation. will check D level. [email or web address] Other 08-28-2023 Evaluation note* Encounter Date Diagnosis Assessment Notes Treatment Notes Treatment Clinical Notes May, Hypothyroidism (ICD-10 - E03.9) [email or web address] Other 08-14-2023 Evaluation note* Encounter Date Diagnosis Assessment Notes Treatment Notes Treatment Clinical Notes May, Obesity (ICD-10 - E66.9) May, BMI 40.0-44.9, adult (ICD-10 - Z68.41) May, Other Summary of Visi t: (A) Discussed cooking various foods (B) Find control in indulgences (C) Reviewed the plate method [email or web address] Other 07-17-2023 Evaluation note* Encounter Date Diagnosis Assessment Notes Treatment Notes Treatment Clinical Notes Mar, Obesity (ICD-10 - E66.9) Mar, BMI 40.0-44.9, adult (ICD-10 - Z68.41) Mar, Other Summary of Visi t: (A) Discussed cooking various foods (B) Find control in indulgences (C) emphasize self-care [email or web address] Other 05-17-2023 NotePROCEDURE: XR FOOT LT MIN [...] Electronically authenticated by: ARIELA SCHWAB Date: 2023-02-14 06:48[facility]04-13-2023 Evaluation note* Encounter Date Diagnosis Assessment [...] 2. Increase veggies, follow the plate method [email or web address] Other 03-14-2023 Evaluation note* Encounter Date Diagnosis Assessment Notes Treatment Notes Treatment Clinical Notes Nov, Abnormal laboratory test result (ICD-10 - R89.9) [email or web address] Other 03-08-2023 NoteOPERATIVE NOTE OPERATION DATE: 12/06/2022 [...] in 10 years. CC: Waqas Pierce M.D.[facility] [id number] Evaluation note* Encounter Date Diagnosis Assessment Notes [...] - M16.10) Nov, Hypertension (ICD-10 - I10) [email or web address] Other 02-14-2023 Evaluation note* Encounter Date Diagnosis Assessment Notes Treatment Notes Treatment Clinical Notes Nov, Obesity, unspecified classification, unspecified obesity type, unspecified whether serious comorbidity present (ICD-10 - E66.9) Nov, BMI 45.0-49.9, adult (ICD-10 - Z68.42) Nov, 2022 Other Summary of Visi t: (A) Presentation of Plate Method discussed (B) Sample meal ideas reviewed (C) exercise recommendations reviewed Patient set the following goals: - patient set personal goal using given handout. [email or web address] Other 02-08-2023 NoteChief Complaint consultation for colonoscopy [...] Years., 11/08/2022 Family History (more content not included)...[facility]:Result Comment: Electronically Signed By: SOPHIA PINEDA, Efrain Layne\Date and Time Signed: 11/08/22 15:29 [id number] Evaluation note* Encounter Date Diagnosis Assessment Notes [...] - G47.33) presently compliant with machine, etc [email or web address] Other 01-13-2023 Evaluation note* Encounter Date Diagnosis [...] Patient is interested in meeting with our residential door installer, telephone encounter started to connect with her [...] the week. Encouraged to take advantage of residential door installer available at [facility] that can help work around limitations. She is open to meeting with our residential door installer for guidance on exercises she can complete with her severe limitations from her foot, hip and back. Telephone encounter started. Oct, Plantar fasciitis (ICD-10 - M72.2) Oct, Arthritis of hip (ICD-10 - M16.10) Oct, Impaired fasting glucose (ICD-10 - R73.01) [email or web address] Other 12-07-2022 Evaluation note* Encounter Date Diagnosis [...] while she works on her weight loss. [email or web address] Other 11-18-2022 NotePROCEDURE: XR HIP RT 2 [...] Electronically authenticated by: SHAWNEE KELLY Date: 2022-08-18 15:54[facility]11-18-2022 NotePROCEDURE: XR FOOT LT MIN 3 [...] Electronically authenticated by: SHAWNEE KELLY Date: 2022-08-18 15:42[facility]09-16-2022 NotePROCEDURE: XR FOOT LT MIN 3 [...] Electronically authenticated by: SHAWNEE KELLY Date: 2022-06-16 16:24[facility]09-16-2022 NotePROCEDURE: XR FOOT LT MIN 3 [...] Electronically authenticated by: SHAWNEE KELLY Date: 2022-06-16 16:24[facility]08-11-2022 NotePROCEDURE: XR FOOT LT MIN 3 VIEWS COMPARISON: 04/24/2022 HISTORY: Pain in left foot FINDINGS: BONES:Stable postsurgical changes with subtalar fusion, medial midfoot hindfoot fusion and spacer at the first tarsometatarsal joint. No mechanical failure. Severe degenerative changes. SOFT TISSUES:Extensive soft tissue swelling.Dorsal woundvac EFFUSION:None visible. OTHER: Negative. IMPRESSION: Stable degenerative and post surgical changes Electronically authenticated by: SHAWNEE KELLY Date: 2022-05-11 17:16[facility]07-25-2022 NotePROCEDURE: XR FOOT LT MIN 3 [...] Electronically authenticated by: ARIELA SCHWAB Date: 2022-04-24 14:11[facility]07-25-2022 NotePROCEDURE: XR FOOT LT 2V HISTORY: [...] authenticated by: ARIELA SCHWAB Date: 2022-04-24 11:54[facility] [id number] NotePROCEDURE: XR FOOT LT MIN 3 VIEWS [...] authenticated by: ARIELA SCHWAB Date: 2022-04-22 20:52[facility] [id number] NotePROCEDURE: XR FOOT LT MIN 3 VIEWS [...] Electronically authenticated by: SHAWNEE KELLY Date: 2022-04-14 17:03[facility]10-25-2021 Evaluation note* Encounter Date Diagnosis Assessment [...] Patient care instructions given in writting by [facility] document. [email or web address] Other 09-23-2021 Evaluation note* Encounter Date Diagnosis [...] note writ ten by Safia Calderon CMA, Entry Level Manufacturing Engineer. Edited and approved by Dr. Junior Mcgowan MD. [email or web address] Other Evaluation + Plan note No data available for this section General Surgery [place] Evaluation noteNo InformationNortThe Good [facility] [email or web address] Other Evaluation noteNo assessment information available [facility] Work Phone: Evaluation note* Diagnosis Onset Date Resolution Status Change in voice acute Essential (primary) hypertension acute Family history of von Willebrand disease acute Hyperlipidemia acute Hypothyroidism acute [facility] Work Phone: Evaluation note* Diagnosis Onset Date Resolution Status Change in voice acute Essential (primary) hypertension acute Family history of von Willebrand disease acute Hyperlipidemia acute Hypothyroidism acute Medicare annual wellness visit, subsequent acute [facility] Work Phone: History and physical note Author Esau Busch [facility] Note Date/Time October 07, 2024 1: 35pm [facility] [address] [place] [address] Gastroenterology H&P Signed Patient: Nicol Smith MR#: [id number] : 1960 Acct:[id number] Age/Sex: 64 / F Adm Date: 5 Loc: Room: Type: [facility] Attending Dr: Esau Busch MD Copies to: [...] <Electronically signed by Esau Busch MD> 10/07/24 1334 [facility] Work Phone: Hisblqh general Narrative - Reported* Type Description Date Medical History DDD (degenerative disc disease), lumbar Surgical History hip replacement Surgical History tonsillectomy Surgical History carpal tunnel release bilateral Hospitalization History see above [email or web address] Other Hisavgx general Narrative - Reported* Type Description Date Medical History DDD (degenerative disc disease), lumbar Medical History spinal stenosis Surgical History hip replacement Surgical History tonsillectomy Surgical History carpal tunnel release bilateral Surgical History vein ablasion Hospitalization History see above [email or web address] Other Hisxxpj general Narrative - Reported* Type Description Date Medical History DDD (degenerative disc disease), lumbar Medical History spinal stenosis Surgical History hip replacement Surgical History tonsillectomy Surgical History carpal tunnel release bilateral Surgical History vein ablasion Surgical History skin graft left foot Hospitalization History see above [email or web address] Other Hismlky general Narrative - Reported* Type Description Date [...] x3 202 2 Hospitalization History see above [email or web address] Other Hisvbuu general Narrative - Reported* Type Description Date [...] HIp replacement 09/03/23 Hospitalization History see above [email or web address] Other Hospital Discharge instructions No data available for this section General Surgery [facility] Discharge instructions Additional Instructions Joint Replacement Discharge Instructions Your safety during your recovery process is important to us. Please seek immediate emergency care if you have sudden chest pain or shortness of breath. Additionally, please call our office at [phone] should any of the following occur: wound [...] to walk without your walker and your medicare nurse until the therapist checks you the [...] and/or laxatives as directed. You may take ahly-tcc-hqtfpej Benadryl if itching occurs without a rash or hives. Icing and elevation will help relieve pain as well, do not underestimate the power of ice and elevation. We do recommend that you stop taking narcotic pain medications by 4-6 weeks after surgery and if necessary, continue to use anti-inflammatory medications such as Mobic (meloxicam), Celebrex (celecoxib), or an ilah-khy-hfbklbs medication (Aleve, Motrin, Ibuprofen, etc). Driving an [...] feel free to call our office at [phone]. You are a priority of ours and we will not be upset with you if you call. We would much rather you call to confirm aspects of your recovery process as opposed to possibly hindering your recovery with inappropriate care. We are committed to providing you with the best care possible. David Mcfarland II, MD Updated 12/15/2022[facility] Work Phone: Progress note No data available for this section General Surgery [place] Reason for referral (narrative)* Reason Appt: Diagnosis 1 Depression (F32.9) Referral Organization [facility] Referring Provider First Name Rolando Referring Provider Last Name Jasmin Referring Provider Specialty Internal Me dicine Referred Organization [facility] Natalia Referred Address [address] [place], [place],[address] Referred Provider Specialty Karina menendez Referral Priority Routine General Notes Anna Jose 2022 01:07:39 PM >Please contact patient to schedule. [email or web address] Other Summary Purpose Family History No Family [...] RD WM f/u Sick-Did not test for [id number] Reason for Visit Sinusitis, acute max illary BMI 40.0-44.9, adult Fatty liver Hyperlipidemia Hypertension Pre-diabetes Aftercare following joint replacement Chest congestion Cough Chief Complaint Rd Wm F/U Obesity z47.[address] WM f/u Sinus infection WMN F/UP Z47.1 - Aftercare following joint replacement surg [address] WM f/u Sick-Did not test for [id number] Reason for Visit Sinusitis, acute max illary BMI 40.0-44.9, adult Fatty liver Hyperlipidemia Hypertension Pre-diabetes Aftercare following joint replacement Bronchitis Chest congestion Cough Chief Complaint Rd Wm F/U Obesity z47.[address] WM f/u BH Sinus infection WMN F/UP Z47.1 - Aftercare following joint replacement surg [address] WM f/u Sick-Did not test for [phone] RD WM f/u Reason for Visit Sinusitis, [...] RD WM f/u Sick-Did not test for [phone] RD WM f/u Habit forming Reason for Visit Sinusitis, acute max illary BMI 40.0-44.9, adult Fatty liver Hyperlipidemia Hypertension Pre-diabetes Aftercare following joint replacement Bronchitis Chest congestion Cough BMI 40.0-44.9, adult Fatty liver Hyperlipidemia Pre-diabetes Chief Complaint Z47.1 - Aftercare fo [facility] joint replacement surg [address] WM f/u Sick-Did not test for [phone] RD WM f/u Habit forming Reason for Visit Aftercare following joint replacement Bronchitis Chest congestion Cough BMI 40.0-44.9, adult Fatty liver Hyperlipidemia Pre-diabetes Chief Complaint RD WM f/u Sick-Did not test for [phone] RD WM f/u Habit forming Reason for [...] and content) DATE CREATED AUTHOR 04/29/2021 [facility] DATE CREATED AUTHOR AUTHOR'S ORGANIZ ATION 12/20/2022 [facility] DATE CREATED AUTHOR AUTHOR'S ORGANIZ ATION 03/09/2023 [facility] DATE CREATED AUTHOR AUTHOR'S ORGANIZ ATION 08/19/2024 [facility] DATE CREATED AUTHOR AUTHOR'S ORGANIZ ATION 10/13/2024 [facility] DATE CREATED AUTHOR AUTHOR'S ORGANIZ ATION 10/22/2024 [facility] REASON FOR VISIT (unrecogniz ed section [...] Team Status: Active Member Role Status Dates Waaqs Pierce MD Primary Care Provider Active Start: [...] Active Start: October 07, 2024 Team Status: Inactive Member Role Status [...] End: December 26, 2023 Carrie Bhakta APRN [employer] Attending Provider Act pradeep Start: December 26, [...] Inactive Member Role Status Dates Grecia Pham [facility] Attending Provider Active Start: October [...] Inactive Member Role Status Dates Grecia Pham [facility] Attending Provider Active Start: September [...] BE BASED ON THE PRIMARY CLINICAL RECORDS. [employer] provides no warranty or guarantee of the accuracy or completeness of information in this document.
--- NOTE | 2024-10-23 09:00 | PM.CN ---
Consult Note: HPI Data of Consult Patient: known to practice within the last 3 years Requesting Physician: Roxie Calixto NP Primary Care Provider: Yuliana Cortez MD Consult Narrative Reason for consult: low back, bilateral LE pain Narrative: 64yof who presents for evaluation. longstanding low back and bilateral LE pain. previously had injection therapy >3 years ago, which provided relief. has engaged in a series of provider directed home exercises > 6 weeks, without lasting benefit. uses otc pain meds as needed. denies adverse med side effects. recently underwent lumbar MRI with results below. recently underwent bilateral L3/4 TFESI and bilateral L4/5 TFESI with >50% improvement ongoing. continues to have mild to moderate left SIJ pain, 3/10 increasing to 6/10. cc:: CC: Roxie Calixto NP Review of Systems ROS Status of ROS 10 or more systems reviewed and unremarkable except as noted in history and below Musculoskeletal Reports: back pain and joint pain; Denies: extremity pain PFSH [facility] Medical History (Updated 10/23/24 @ 09:10 by Roxie Calixto NP) Spinal stenosis ?M48.00 - Spinal stenosis, site unspecified (ICD-10) Carpal tunnel syndrome ?G56.00 - Carpal tunnel syndrome, unspecified upper limb (ICD-10) Anxiety ?F41.9 - Anxiety disorder, unspecified (ICD-10) Hiatal hernia ?K44.9 - Diaphragmatic hernia without obstruction or gangrene (ICD-10) Acid reflux ?K21.9 - Gastro-esophageal reflux disease without esophagitis (ICD-10) Fatty liver ?K76.0 - Fatty (change of) liver, not elsewhere classified (ICD-10) Sleep apnea ?G47.30 - Sleep apnea, unspecified (ICD-10) High cholesterol ?E78.00 - Pure hypercholesterolemia, unspecified (ICD-10) HTN (hypertension) ?I10 - Essential (primary) hypertension (ICD-10) Diabetes ?E11.9 - Type 2 diabetes mellitus without complications (ICD-10) Surgical History History of foot surgery ?Z98.890 - Other specified postprocedural states (ICD-10) History of total hip arthroplasty ?Z96.649 - Presence of unspecified artificial hip joint (ICD-10) S/P trigger finger release ?Z98.890 - Other specified postprocedural states (ICD-10) History of carpal tunnel release ?Z98.890 - Other specified postprocedural states (ICD-10) Hx of tonsillectomy ?Z90.89 - Acquired absence of other organs (ICD-10) Social History Little interest or pleasure in doing things: not at all Feeling down, depressed, or hopeless: not at all Meds Home Medications and Allergies Home Medications ?Medication ?Instructions ?Recorded ?Confirmed ?Type acetaminophen 325 mg tablet 325 mg PO BID PRN pain 08/18/24 10/13/24 History (Tylenol) atorvastatin 20 mg tablet 20 mg PO DAILY 08/18/24 10/13/24 History cholecalciferol (vitamin D3) 1,250 50,000 unit PO QWEEK 08/18/24 10/13/24 History mcg (50,000 unit) capsule levothyroxine 75 mcg capsule 75 mcg PO DAILY 08/18/24 10/13/24 History loratadine 5 mg-pseudoephedrine ER 1 tab PO DAILY PRN allergy symptoms 08/18/24 10/13/24 History 120 mg tablet,extended release,12hr (Claritin-D 12 Hour) metoprolol succinate 25 mg 25 mg PO DAILY 08/18/24 10/13/24 History tablet,extended release 24 hr pantoprazole 40 mg tablet,delayed 40 mg PO DAILY 08/18/24 10/13/24 History release diclofenac sodium 75 mg mg PO 10/23/24 History tablet,delayed release ferrous sulfate 325 mg (65 mg 325 mg PO DAILY 10/23/24 10/23/24 History iron) tablet (Feosol) multivitamin (Daily Multi-Vitamin 1 tab PO DAILY 10/23/24 10/23/24 History tablet) Allergies Allergy/AdvReac Type Severity Reaction Status Date / Time Penicillins Allergy Unknown Unknown Verified 10/13/24 09:45 metformin AdvReac Severe Cramping Verified 10/13/24 09:45 of the Muscles seritonin Allergy Unknown Unknown Uncoded 10/13/24 09:45 Exam Constitutional Documenting provider has reviewed patient's vital signs: yes Common normals: no apparent distress, oriented x3, healthy appearing, alert and well nourished General appearance: cooperative [facility] Common normals: normocephalic, hearing grossly normal bilaterally and moist oral mucous membranes Head and scalp: normocephalic Eye Common normals: PERRL Pupil: PERRL Neck & C-Spine Common normals: full ROM General: normal visual inspection Chest Common normals: inspection of chest normal Respiratory Common normals: normal respiratory effort, no retractions and no use of accessory muscles Back & Pelvis Thoracic spine/upper back: ROM limited, pain with ROM and paraspinal muscle tenderness Lumbar spine/lower back: ROM limited, pain with ROM and straight leg raise negative bilaterally Sacroiliac joints: SI joint(s) abnormal Other: left positive gina(patricks), gaenslens, thigh thrust, compression test sensation intact BLE strength 5/5 in BLE Neuro Common normals: oriented x3, CN's II-XII intact bilaterally, moves all extremities, no focal motor deficits, no sensory deficits noted and deep tendon reflexes 2+ bilaterally Sensorium/orientation: alert Motor exam: strength 5/5 throughout and no movement abnormalities noted Psych Common normals: mental status grossly normal, thought process normal, cooperative, affect normal, speech normal and activity/motor behavior normal Speech: normal speech Thought process: normal thought process Results Imaging Lumbar MRI: Attestation: I have reviewed the pertinent imaging results. Radiologist's impression: There is dextroconvex scoliosis with apex at L3. Straightening of the lumbar spine. No subluxation. No compression fractures. Moderate disc space narrowing in the lower thoracic spine to the L2-L3 level and mild disc space narrowing in the remaining lumbar spine. Modic type I changes at L1-L2. Conus medullaris terminates at L2. No abnormal signal in the distal spinal cord and the conus medullaris. L5-S1: Broad-based disc protrusion, moderate facet arthropathy and ligamentum flavum hypertrophy. Mild spinal canal, moderate to severe right and moderate left foraminal stenosis. L4-L5: Disc bulge, severe facet arthropathy and ligamentum flavum hypertrophy. Moderate to severe spinal canal and bilateral lateral recess stenosis and mild bilateral foraminal stenosis. L3-L4: Disc bulge and moderate facet arthropathy. Mild to moderate spinal canal and left foraminal stenosis. L2-L3: Disc bulge and moderate facet arthropathy. Superimposed small right subarticular disc extrusion or sequestration with inferior migration. No spinal canal stenosis. Minimal bilateral foraminal stenosis. L1-L2: Disc bulge and mild facet arthropathy. No spinal canal stenosis. Moderate right foraminal stenosis. T12-L1: Minimal disc bulge without spinal canal or significant neural foraminal stenosis. Additional Findings Additional findings: If on a controlled substance or opioids, I have checked an [place] report on this patient and there are no aberrancies noted in the prescribing history.??If on a controlled substance or opioid a drug screen was completed and reviewed within the last year, and if there has not been a drug screen completed we ordered one today to monitor higher risk, state monitored pain medication use. As part of providing excellent, safe, comprehensive care, the following was completed at our patient's visit: 1. A medication reconciliation and review to ensure accurate knowledge of current/active medications, including asking our patients to inform us about any [id number]-[id number] medications or herbal remedies/nutritional supplements/alternative remedies. 2. A review to specifically ensure our patients have had annual screening for screening for depression, screening for tobacco use, and screening for unhealthy alcohol use. For concerning screenings had a discussion with the patient, provided patient education, and recommended follow-up with primary care provider when appropriate. If patient noted with a risk of falling, they received education on strength, gait, and balance training to prevent future risk of falling. Portions of this note may have been carried over from the previous visit and updated as appropriate. Please note this office utilizes paper charting in addition to the electronic medical record. A list of current medications, vitals, and PMH is available there as the clinical staff outside of myself do not have access to [employer] charting during the clinic day operations. As part of providing quality comprehensive care the current medications, vitals, and PMH were reviewed in the paper chart. Assessment and Plan Assessment and Plan (1) Lumbar stenosis with neurogenic claudication: (2) Sacroiliitis: (3) Lumbar spondylosis: (4) Myalgia, other site: (5) Chronic thoracic back pain: Assessment and Plan: thoracic xray reviewed, no additional interventions/medications at this time Plan left SIJ injection under fluoroscopy for sacroiliitis, risks vs benefits reviewed. pt to call to schedule continue HEP as tolerated continue tylenol PRN f/u after injection or 3 months
== END 2024-10-23 08:32 | disposition home or self-care (01) ==
LOC: PM 08:31
PROVIDERS: PCP Family Medicine; Visit Provider Nurse Practitioner
DX: M48.062 Spinal stenosis, lumbar region with neurogenic claudication (principal); M46.1 Sacroiliitis, not elsewhere classified; M47.816 Spondylosis without myelopathy or radiculopathy, lumbar region; M79.18 Myalgia, other site; M54.6 Pain in thoracic spine
CPT/HCPCS: G0463

== ENCOUNTER 2024-11-11 14:41 | Outpatient (OUT) | payer MEDICARE, SELFPAY ==
--- NOTE | 2024-11-11 14:44 | MM_ITS ---
Patient Name: NAVARRO SMITH MR#: [id number] : 1960 Exam Date: 11/11/2024 Ordering Doctor: DR Uday Wray . RADIOLOGY REPORT PROCEDURE: MM TOMOSYNTHESIS SCREENING BI COMPARISON: MM TOMOSYNTHESIS SCREENING BI, 11/05/2023. MG MAMM SCREEN 3D BONNIE CAD, 11/03/2022. MG MAMM SCREEN 3D BONNIE CAD, 10/31/2021. MG MAMM BONNIE SCRN W CAD DIG, 06/12/2013. INDICATIONS: Screening Calculator Name NCI Breast Cancer Risk Assessment Tool 5 Year Breast Cancer Risk 1.50% Lifetime Breast Cancer Risk 7.00% Personal Breast Cancer No Personal Ovarian Cancer No Treatments None Family Cancers Grandmother-maternal with uterine cancer at age ~50. LOCATION: [facility] BREAST COMPOSITION: There are scattered areas of fibroglandular density. FINDINGS: DIAGNOSTIC CATEGORY 2--BENIGN FINDING: RIGHT BREAST: No significant suspicious finding. Scattered benign-appearing lymph nodes are present. No significant change has occurred. LEFT BREAST: No significant suspicious finding. Scattered benign-appearing lymph nodes are present. No significant change has occurred. RECOMMENDATIONS: ROUTINE MAMMOGRAM AND CLINICAL EVALUATION IN 12 MONTHS. PLEASE NOTE: A NORMAL MAMMOGRAM DOES NOT EXCLUDE THE POSSIBILITY OF BREAST CANCER. A CLINICALLY SUSPICIOUS PALPABLE LUMP SHOULD BE BIOPSIED. Dictated by: Jace Armando M.D. on 11/14/2024 at 10:43 Approved by: Jace Armando M.D. on 11/14/2024 at 10:46
== END 2024-11-11 14:42 | disposition home or self-care (01) ==
LOC: MAMMO 14:41
PROVIDERS: PCP Family Medicine; Visit Provider Obstetrics & Gynecology
DX: Z12.31 Encounter for screening mammogram for malignant neoplasm of breast (principal); Z80.8 Family history of malignant neoplasm of other organs or systems
CPT/HCPCS: 77063; 77067

== ENCOUNTER 2024-11-18 09:27 | Outpatient (OUT) | payer MEDICARE, SELFPAY ==
--- NOTE | 2024-11-18 09:34 | MR_ITS ---
The [address] [address] Patient Name: NAVARRO SMITH MRN: [id number] date: 1960 Sex: F Assigned Patient Location: MRI Current Patient Location: MRI Accession/Order Number: [id number] Exam Date: 11/19/2024 13:40 Report Date: 11/19/2024 14:01 At the request of: WAQAS PIERCE MD Procedure: MR thoracic spine wo con MR thoracic spine wo con 11/18/2024 10:36 AM SIGNS AND SYMPTOMS: Chronic back pain radiating to shoulder blades, worsening PROTOCOL: Multiplanar multisequence MR images of the thoracic spine were obtained without IV contrast COMPARISON: 10/08/2024 FINDINGS: A marker is present posteriorly at the level of the C6-C7 intervertebral discs as well as at the T7-T8 intervertebral disc posteriorly. The bones of the thoracic spine are in anatomic alignment. There is preservation of vertebral body heights. There is mild disc height loss at T6-T7, T7-T8, T8-T9, T9-T10, T10-T11, T11-T12, T12-L1, and L1-L2. The marrow signal is within normal limits. No epidural or paraspinous fluid collection is appreciated. The visualized paraspinous soft tissues are within normal limits. Incidental note is made of a hiatal hernia with gastric fundus and body in the lower mediastinum. At T1-T2: There is a normal disc, central canal, and neural foramen. At T2-T3: There is a broad-based disc bulge with facet hypertrophy. There is mild spinal canal stenosis with mild bilateral neural foraminal narrowing. At T3-T4: There is left-sided facet hypertrophy with mild spinal canal narrowing. No significant neural foraminal stenosis. At T4-T5: There is a normal disc, central canal, and neural foramen. At T5-T6: There is a normal disc, central canal, and neural foramen. At T6-T7: There is a normal disc, central canal, and neural foramen. At T7-T8: There is a broad-based disc bulge. There is a left central disc protrusion. There is mild spinal canal narrowing with mild left neural foraminal stenosis. At T8-T9: There is facet hypertrophy contributing to mild spinal canal stenosis with mild bilateral neural foraminal stenosis. At T9-T10: There is facet hypertrophy left greater than right. There is a left foraminal disc protrusion contributing to moderate left neural foraminal narrowing. There is mild spinal canal stenosis. At T10-T11: There is a broad-based disc bulge. There is facet hypertrophy with ligamentum flavum thickening contributing to mild to moderate spinal canal narrowing. There is mild right and moderate left neural foraminal stenosis. At T11-T12: There is a broad-based disc bulge with facet hypertrophy. There is mild spinal canal narrowing with moderate left and mild right neural foraminal stenosis. At T12-L1: There is a broad-based disc bulge with facet hypertrophy. There is mild spinal canal narrowing with mild bilateral neural foraminal stenosis. MR/MR thoracic spine wo con IMPRESSION: No cord compression or cord signal abnormality. Multilevel degenerative changes noted with variable degrees of spinal canal and neural foraminal stenosis. This is greatest at T9-T10 through T11-T12. Incidental note is made of a hiatal hernia with gastric fundus and body in the lower mediastinum. Impression dictated by: Magdy Crooks M.D.11/19/2024 2:01 PM Dictation Location: [place] [address] Electronically authenticated by: [id number] Y Date: 11/19/2024 14:01
== END 2024-11-18 09:28 | disposition home or self-care (01) ==
LOC: MRI 09:27
PROVIDERS: PCP Family Medicine; Visit Provider Family Medicine
DX: M51.34 Other intervertebral disc degeneration, thoracic region (principal)
CPT/HCPCS: 72146

== ENCOUNTER 2024-12-01 14:46 | Outpatient (REF) | payer MEDICARE, SELFPAY ==
[2024-12-04 10:15] LABS: Age Gdln ACOG Testing Note (.); HPV Aptima Negative (Negative); IGP, Aptima HPV, rfx 16/18,45 Note (.)
== END 2024-12-01 14:47 | disposition home or self-care (01) ==
LOC: LAB 14:46
PROVIDERS: PCP Family Medicine; Visit Provider Obstetrics & Gynecology
DX: Z01.419 Encounter for gynecological examination (general) (routine) without abnormal findings (principal)
CPT/HCPCS: 87624; 88175

== ENCOUNTER 2024-12-03 13:59 | Emergency (ER) | payer MEDICARE, SELFPAY ==
[2024-12-03 14:13] VITALS: BP 145/98; PULSE 81; TEMP 36.6; O2SAT 96; BMI 45.4
--- NOTE | 2024-12-03 14:24 | ED_ITS ---
HPI - Wound/Laceration General Chief Complaint: Wound/Laceration Stated Complaint: L THUMB LACERATION Time Seen by Provider: 12/03/24 14:14 Source: patient Mode of arrival: walk-in Limitations: no limitations History of Present Illness HPI narrative: 64 year old female presents to the ED for a laceration to her left thumb. She accidentally cut herself today with a knife while chopping cabbage. Tetanus status is unknown. Denies N/T. She has full ROM to the digit. Related Data Home Medications ?Medication ?Instructions ?Recorded ?Confirmed acetaminophen 325 mg tablet 325 mg PO BID PRN pain 08/18/24 10/13/24 (Tylenol) atorvastatin 20 mg tablet 20 mg PO DAILY 08/18/24 10/13/24 cholecalciferol (vitamin D3) 1,250 50,000 unit PO QWEEK 08/18/24 10/13/24 mcg (50,000 unit) capsule levothyroxine 75 mcg capsule 75 mcg PO DAILY 08/18/24 10/13/24 loratadine 5 mg-pseudoephedrine ER 1 tab PO DAILY PRN allergy symptoms 08/18/24 10/13/24 120 mg tablet,extended release,12hr (Claritin-D 12 Hour) metoprolol succinate 25 mg 25 mg PO DAILY 08/18/24 10/13/24 tablet,extended release 24 hr pantoprazole 40 mg tablet,delayed 40 mg PO DAILY 08/18/24 10/13/24 release diclofenac sodium 75 mg mg PO 10/23/24 tablet,delayed release ferrous sulfate 325 mg (65 mg 325 mg PO DAILY 10/23/24 10/23/24 iron) tablet (Feosol) multivitamin (Daily Multi-Vitamin 1 tab PO DAILY 10/23/24 10/23/24 tablet) Allergies Allergy/AdvReac Type Severity Reaction Status Date / Time Penicillins Allergy Unknown Unknown Verified 10/13/24 09:45 metformin AdvReac Severe Cramping Verified 10/13/24 09:45 of the Muscles seritonin Allergy Unknown Unknown Uncoded 10/13/24 09:45 Review of Systems ROS Constitutional Denies: fever or chills Cardiovascular Denies: chest pain Respiratory Denies: shortness of breath Integumentary/Breast Reports: other (laceration) Neurological Denies: numbness in extremities or weakness in extremities PFSH [facility] Medical History (Updated 12/03/24 @ 14:27 by Dannielle Jones) Spinal stenosis ?M48.00 - Spinal stenosis, site unspecified (ICD-10) Carpal tunnel syndrome ?G56.00 - Carpal tunnel syndrome, unspecified upper limb (ICD-10) Anxiety ?F41.9 - Anxiety disorder, unspecified (ICD-10) Hiatal hernia ?K44.9 - Diaphragmatic hernia without obstruction or gangrene (ICD-10) Acid reflux ?K21.9 - Gastro-esophageal reflux disease without esophagitis (ICD-10) Fatty liver ?K76.0 - Fatty (change of) liver, not elsewhere classified (ICD-10) Sleep apnea ?G47.30 - Sleep apnea, unspecified (ICD-10) High cholesterol ?E78.00 - Pure hypercholesterolemia, unspecified (ICD-10) HTN (hypertension) ?I10 - Essential (primary) hypertension (ICD-10) Diabetes ?E11.9 - Type 2 diabetes mellitus without complications (ICD-10) Surgical History History of foot surgery ?Z98.890 - Other specified postprocedural states (ICD-10) History of total hip arthroplasty ?Z96.649 - Presence of unspecified artificial hip joint (ICD-10) S/P trigger finger release ?Z98.890 - Other specified postprocedural states (ICD-10) History of carpal tunnel release ?Z98.890 - Other specified postprocedural states (ICD-10) Hx of tonsillectomy ?Z90.89 - Acquired absence of other organs (ICD-10) Social History Little interest or pleasure in doing things: not at all Feeling down, depressed, or hopeless: not at all Exam Constitutional Vital Signs, click to edit/add: Last Vital Signs Temp 97.8 F 12/03/24 14:13 Pulse 81 12/03/24 14:13 Resp 18 12/03/24 14:13 BP 145/98 H 12/03/24 14:13 Pulse Ox 96 12/03/24 14:13 O2 Del Method Room Air 12/03/24 14:13 Common normals: no apparent distress and oriented x3 General appearance: cooperative Eye Common normals: conjunctivae normal and no scleral icterus Neck & C-Spine Common normals: supple Cardio Peripheral pulses: radial pulses present Extremity Other: 4 mm laceration to left distal thumb. Appears superficial. No active bleeding. Sutures not indicated. Full ROM to the digit. Distal sensation intact. Course Vital Signs Vital signs: Vital Signs Temperature 97.8 F 12/03/24 14:13 Pulse Rate 81 12/03/24 14:13 Respiratory Rate 18 12/03/24 14:13 Blood Pressure 145/98 H 12/03/24 14:13 Pulse Oximetry 96 12/03/24 14:13 Oxygen Delivery Method Room Air 12/03/24 14:13 Temperature 97.8 F 12/03/24 14:13 Pulse Rate 81 12/03/24 14:13 Respiratory Rate 18 12/03/24 14:13 Blood Pressure 145/98 H 12/03/24 14:13 Pulse Oximetry 96 12/03/24 14:13 Oxygen Delivery Method Room Air 12/03/24 14:13 MDM - Wound/Laceration MDM Narrative Medical decision making narrative: Her wound was cleansed. Steri-strips and Band-aid were applied. Follow up with pcp for a recheck, further evaluation and treatment. Wound care was discussed. Discharge Plan Discharge Chief Complaint: Wound/Laceration Clinical Impression: Laceration of thumb Patient Disposition: Home, Self-Care Time of Disposition Decision: 14:52 Condition: Good Mode of Transportation: Private Vehicle Prescriptions / Home Meds: No Action atorvastatin 20 mg tablet 20 mg PO DAILY Claritin-D 12 Hour 5-120 mg tablet extended release 12 hr 1 tab PO DAILY PRN (Reason: allergy symptoms) levothyroxine 75 mcg capsule 75 mcg PO DAILY metoprolol succinate 25 mg tablet extended release 24 hr 25 mg PO DAILY pantoprazole 40 mg tablet,delayed release (DR/EC) 40 mg PO DAILY acetaminophen [Tylenol] 325 mg tablet 325 mg PO BID PRN (Reason: pain) cholecalciferol (vitamin D3) 1,250 mcg (50,000 unit) capsule 50,000 unit PO QWEEK diclofenac sodium 75 mg tablet,delayed release (DR/EC) PO multivitamin [Daily Multi-Vitamin] Tablet 1 tab PO DAILY ferrous sulfate [Feosol] 325 mg (65 mg iron) tablet 325 mg PO DAILY Print Language: Uzbek Instructions: Finger Laceration (ED) Referrals: Yuliana Cortez MD [Primary Care Provider] - 1 week Discharge Date/Time: 12/03/24 14:56
[2024-12-03] MEDS: ADACEL DIPH,PERTUSS(ACELL),TET VAC/PF 0.5 ML ADULT SYRINGE IM (14:31)
== END 2024-12-03 14:56 | disposition home or self-care (01) ==
PROVIDERS: Emergency Provider Emergency Medicine; PCP Family Medicine
DX: S61.012A Laceration without foreign body of left thumb without damage to nail, initial encounter (principal); W26.0XXA Contact with knife, initial encounter; Z23 Encounter for immunization
CPT/HCPCS: 90471; 90715; 99283

== ENCOUNTER 2024-12-05 08:32 | Outpatient (OUT) | payer MEDICARE, SELFPAY | END 2024-12-05 08:33 | disposition home or self-care (01) | LOC: RAD 08:33 | PROVIDERS: PCP Family Medicine; Visit Provider Obstetrics & Gynecology | DX: Z01.419 Encounter for gynecological examination (general) (routine) without abnormal findings (principal); Z78.0 Asymptomatic menopausal state | CPT/HCPCS: 77080 ==

== ENCOUNTER 2025-01-06 14:12 | Outpatient (OUT) | payer MEDICARE, SELFPAY ==
[2025-01-06 14:36] LABS: Basophils Absolute Auto 0.1 10^3/uL (0.0-0.1); Basophils Percent Auto 0.9 % (0.2-2.0); Eosinophils Absolute Auto 0.1 10^3/uL (0.0-0.7); Eosinophils Percent Auto 1.6 % (0.9-7.0); Hematocrit 45.7 % (36.0-48.0); Immature Granulocytes Abs Auto 0.02 10^3/uL (0.00-0.03); Immature Granulocytes Pct Auto 0.3 % (0.0-0.5); Lymphocytes Absolute Auto 1.7 10^3/uL (1.2-3.8); Lymphocytes Percent Auto 24.6 % (20.5-60.0); Mean Corpuscular HGB Conc 32.8 g/dL (29.9-35.2); Mean Corpuscular Hemoglobin 30.2 pg (26.7-34.0); Mean Corpuscular Volume 92.1 fL (81.0-99.0); Mean Platelet Volume 9.3 fL (9.5-13.5); Monocytes Absolute Auto 0.6 10^3/uL (0.3-0.8); Neutrophils Absolute Auto 4.6 10^3/uL (1.4-6.5); Neutrophils Percent Auto 64.6 % (43.0-75.0); Platelet Count 345 10^3/uL (150-450); Red Blood Count 4.96 10^6/uL (4.20-5.40); Red Cell Distribution Width 13.9 % (11.0-15.0)
[2025-01-06 15:02] LABS: Anion Gap 10.8; BUN Creatinine Ratio 16.5; Calcium 9.2 mg/dL (8.5-10.1); Carbon Dioxide 28.2 mmol/L (21.0-32.0); Chloride 105 mmol/L (98-107); Estimated GFR (African America >60 (>=60 mL/min/1.73m^2); Estimated GFR (Non-African Ame >60 (>=60 mL/min/1.73m^2); Glucose 106 mg/dL (74-106); Sodium 140 mmol/L (136-145)
[2025-01-07 02:16] LABS: Vitamin B12 1032 pg/mL (232-1245)
== END 2025-01-06 14:13 | disposition home or self-care (01) ==
LOC: LAB 14:13
PROVIDERS: PCP Family Medicine; Visit Provider Internal Medicine Hematology & Oncology
DX: D64.9 Anemia, unspecified (principal); D50.9 Iron deficiency anemia, unspecified; K90.9 Intestinal malabsorption, unspecified
CPT/HCPCS: 36415; 80048; 82306; 82607; 82728; 83540; 83550; 85025

== ENCOUNTER 2025-01-13 07:36 | Outpatient (RCR) | payer MEDICARE, SELFPAY | END 2025-01-14 08:17 | disposition home or self-care (01) | LOC: HEMC 07:36 | PROVIDERS: PCP Family Medicine; Visit Provider Internal Medicine Hematology & Oncology | DX: D50.9 Iron deficiency anemia, unspecified (principal); K90.9 Intestinal malabsorption, unspecified; D64.9 Anemia, unspecified; Z96.643 Presence of artificial hip joint, bilateral; Z87.891 Personal history of nicotine dependence | CPT/HCPCS: G0463 ==

== ENCOUNTER 2025-01-22 08:33 | Outpatient (OUT) | payer MEDICARE, SELFPAY ==
--- NOTE | 2025-01-22 09:12 | PM.CN ---
Consult Note: HPI Data of Consult Patient: known to practice within the last 3 years Requesting Physician: Roxie Calixto NP Primary Care Provider: Yuliana Cortez MD Consult Narrative Reason for consult: back pain Narrative: 64yof who presents for evaluation. longstanding middle back, low back, and bilateral LE pain. has engaged in a series of provider directed home exercises > 6 weeks, without lasting benefit. uses otc pain meds as needed. denies adverse med side effects. recently underwent thoracic MRI with results below. no recent NS consultation. cc:: CC: Roxie Calixto NP Review of Systems ROS Status of ROS 10 or more systems reviewed and unremarkable except as noted in history and below Musculoskeletal Reports: back pain and joint pain; Denies: extremity pain PFSH PFSH Medical History (Updated 01/22/25 @ 09:14 by Roxie Calixto NP) Spinal stenosis ?M48.00 - Spinal stenosis, site unspecified (ICD-10) Carpal tunnel syndrome ?G56.00 - Carpal tunnel syndrome, unspecified upper limb (ICD-10) Anxiety ?F41.9 - Anxiety disorder, unspecified (ICD-10) Hiatal hernia ?K44.9 - Diaphragmatic hernia without obstruction or gangrene (ICD-10) Acid reflux ?K21.9 - Gastro-esophageal reflux disease without esophagitis (ICD-10) Fatty liver ?K76.0 - Fatty (change of) liver, not elsewhere classified (ICD-10) Sleep apnea ?G47.30 - Sleep apnea, unspecified (ICD-10) High cholesterol ?E78.00 - Pure hypercholesterolemia, unspecified (ICD-10) HTN (hypertension) ?I10 - Essential (primary) hypertension (ICD-10) Diabetes ?E11.9 - Type 2 diabetes mellitus without complications (ICD-10) Surgical History History of foot surgery ?Z98.890 - Other specified postprocedural states (ICD-10) History of total hip arthroplasty ?Z96.649 - Presence of unspecified artificial hip joint (ICD-10) S/P trigger finger release ?Z98.890 - Other specified postprocedural states (ICD-10) History of carpal tunnel release ?Z98.890 - Other specified postprocedural states (ICD-10) Hx of tonsillectomy ?Z90.89 - Acquired absence of other organs (ICD-10) Social History Little interest or pleasure in doing things: not at all Feeling down, depressed, or hopeless: not at all Meds Home Medications and Allergies Home Medications ?Medication ?Instructions ?Recorded ?Confirmed ?Type acetaminophen 325 mg tablet 325 mg PO BID PRN pain 08/18/24 10/13/24 History (Tylenol) atorvastatin 20 mg tablet 20 mg PO DAILY 08/18/24 10/13/24 History cholecalciferol (vitamin D3) 1,250 50,000 unit PO QWEEK 08/18/24 10/13/24 History mcg (50,000 unit) capsule levothyroxine 75 mcg capsule 75 mcg PO DAILY 08/18/24 10/13/24 History loratadine 5 mg-pseudoephedrine ER 1 tab PO DAILY PRN allergy symptoms 08/18/24 10/13/24 History 120 mg tablet,extended release,12hr (Claritin-D 12 Hour) metoprolol succinate 25 mg 25 mg PO DAILY 08/18/24 10/13/24 History tablet,extended release 24 hr pantoprazole 40 mg tablet,delayed 40 mg PO DAILY 08/18/24 10/13/24 History release diclofenac sodium 75 mg mg PO 10/23/24 History tablet,delayed release ferrous sulfate 325 mg (65 mg 325 mg PO DAILY 10/23/24 10/23/24 History iron) tablet (Feosol) multivitamin (Daily Multi-Vitamin 1 tab PO DAILY 10/23/24 10/23/24 History tablet) Allergies Allergy/AdvReac Type Severity Reaction Status Date / Time Penicillins Allergy Unknown Unknown Verified 10/13/24 09:45 metformin AdvReac Severe Cramping Verified 10/13/24 09:45 of the Muscles seritonin Allergy Unknown Unknown Uncoded 10/13/24 09:45 Exam Constitutional Documenting provider has reviewed patient's vital signs: yes Common normals: no apparent distress, oriented x3, healthy appearing, alert and well nourished General appearance: cooperative HENMT Common normals: normocephalic, hearing grossly normal bilaterally and moist oral mucous membranes Head and scalp: normocephalic Eye Common normals: PERRL Pupil: PERRL Neck & C-Spine Common normals: full ROM General: normal visual inspection Chest Common normals: inspection of chest normal Respiratory Common normals: normal respiratory effort, no retractions and no use of accessory muscles Back & Pelvis Thoracic spine/upper back: ROM limited, pain with ROM, thoracic spinal tenderness T-spine tenderness location: T5, T6, T7, T8, T9 and T10 and paraspinal muscle tenderness Lumbar spine/lower back: ROM limited, pain with ROM and straight leg raise negative bilaterally Sacroiliac joints: SI joint(s) abnormal Other: thoracic radiculopathy following T9-11 dermatomal pattern with stabbing burning pain left > right sensation intact BLE strength 5/5 in BLE Neuro Common normals: oriented x3, CN's II-XII intact bilaterally, moves all extremities, no focal motor deficits, no sensory deficits noted and deep tendon reflexes 2+ bilaterally Sensorium/orientation: alert Motor exam: strength 5/5 throughout and no movement abnormalities noted Psych Common normals: mental status grossly normal, thought process normal, cooperative, affect normal, speech normal and activity/motor behavior normal Speech: normal speech Thought process: normal thought process Results Imaging Lumbar MRI: Attestation: I have reviewed the pertinent imaging results. Radiologist's impression: There is dextroconvex scoliosis with apex at L3. Straightening of the lumbar spine. No subluxation. No compression fractures. Moderate disc space narrowing in the lower thoracic spine to the L2-L3 level and mild disc space narrowing in the remaining lumbar spine. Modic type I changes at L1-L2. Conus medullaris terminates at L2. No abnormal signal in the distal spinal cord and the conus medullaris. L5-S1: Broad-based disc protrusion, moderate facet arthropathy and ligamentum flavum hypertrophy. Mild spinal canal, moderate to severe right and moderate left foraminal stenosis. L4-L5: Disc bulge, severe facet arthropathy and ligamentum flavum hypertrophy. Moderate to severe spinal canal and bilateral lateral recess stenosis and mild bilateral foraminal stenosis. L3-L4: Disc bulge and moderate facet arthropathy. Mild to moderate spinal canal and left foraminal stenosis. L2-L3: Disc bulge and moderate facet arthropathy. Superimposed small right subarticular disc extrusion or sequestration with inferior migration. No spinal canal stenosis. Minimal bilateral foraminal stenosis. L1-L2: Disc bulge and mild facet arthropathy. No spinal canal stenosis. Moderate right foraminal stenosis. T12-L1: Minimal disc bulge without spinal canal or significant neural foraminal stenosis. Thoracic MRI: Attestation: I have reviewed the pertinent imaging results. Radiologist's impression: FINDINGS: A marker is present posteriorly at the level of the C6-C7 intervertebral discs as well as at the T7-T8 intervertebral disc posteriorly. The bones of the thoracic spine are in anatomic alignment. There is preservation of vertebral body heights. There is mild disc height loss at T6-T7, T7-T8, T8-T9, T9-T10, T10-T11, T11-T12, T12-L1, and L1-L2. The marrow signal is within normal limits. No epidural or paraspinous fluid collection is appreciated. The visualized paraspinous soft tissues are within normal limits. Incidental note is made of a hiatal hernia with gastric fundus and body in the lower mediastinum. At T1-T2: There is a normal disc, central canal, and neural foramen. At T2-T3: There is a broad-based disc bulge with facet hypertrophy. There is mild spinal canal stenosis with mild bilateral neural foraminal narrowing. At T3-T4: There is left-sided facet hypertrophy with mild spinal canal narrowing. No significant neural foraminal stenosis. At T4-T5: There is a normal disc, central canal, and neural foramen. At T5-T6: There is a normal disc, central canal, and neural foramen. At T6-T7: There is a normal disc, central canal, and neural foramen. At T7-T8: There is a broad-based disc bulge. There is a left central disc protrusion. There is mild spinal canal narrowing with mild left neural foraminal stenosis. At T8-T9: There is facet hypertrophy contributing to mild spinal canal stenosis with mild bilateral neural foraminal stenosis. At T9-T10: There is facet hypertrophy left greater than right. There is a left foraminal disc protrusion contributing to moderate left neural foraminal narrowing. There is mild spinal canal stenosis. At T10-T11: There is a broad-based disc bulge. There is facet hypertrophy with ligamentum flavum thickening contributing to mild to moderate spinal canal narrowing. There is mild right and moderate left neural foraminal stenosis. At T11-T12: There is a broad-based disc bulge with facet hypertrophy. There is mild spinal canal narrowing with moderate left and mild right neural foraminal stenosis. At T12-L1: There is a broad-based disc bulge with facet hypertrophy. There is mild spinal canal narrowing with mild bilateral neural foraminal stenosis. Additional Findings Additional findings: If on a controlled substance or opioids, I have checked an [place] report on this patient and there are no aberrancies noted in the prescribing history.??If on a controlled substance or opioid a drug screen was completed and reviewed within the last year, and if there has not been a drug screen completed we ordered one today to monitor higher risk, state monitored pain medication use. As part of providing excellent, safe, comprehensive care, the following was completed at our patient's visit: 1. A medication reconciliation and review to ensure accurate knowledge of current/active medications, including asking our patients to inform us about any [id number] medications or herbal remedies/nutritional supplements/alternative remedies. 2. A review to specifically ensure our patients have had annual screening for screening for depression, screening for tobacco use, and screening for unhealthy alcohol use. For concerning screenings had a discussion with the patient, provided patient education, and recommended follow-up with primary care provider when appropriate. If patient noted with a risk of falling, they received education on strength, gait, and balance training to prevent future risk of falling. Portions of this note may have been carried over from the previous visit and updated as appropriate. Please note this office utilizes paper charting in addition to the electronic medical record. A list of current medications, vitals, and PMH is available there as the clinical staff outside of myself do not have access to [employer] charting during the clinic day operations. As part of providing quality comprehensive care the current medications, vitals, and PMH were reviewed in the paper chart. Assessment and Plan Assessment and Plan (1) Thoracic stenosis: (2) Thoracic radiculopathy: (3) Lumbar stenosis with neurogenic claudication: (4) Sacroiliitis: (5) Lumbar spondylosis: (6) Myalgia, other site: (7) Chronic thoracic back pain: Assessment and Plan: thoracic xray reviewed, no additional interventions/medications at this time Plan 64 year old female with chronic thoracic and lumbar pain presents with failure to respond to PT/Provider guided HEP >6 weeks, heat, ice, tylenol, cannot take NSAIDs due to hiatal hernia. advanced imaging consistent with thoracic stenosis and lumbar stenosis. based on physical exam will trial bilateral 10-11 TFESI, consider additional bilateral T9-10 TFESI for multilevel radiculopathy. 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 continue current medications, continue HEP as tolerated. f/u 2 weeks after TFESI
== END 2025-01-22 08:34 | disposition home or self-care (01) ==
LOC: PM 08:34
PROVIDERS: PCP Family Medicine; Visit Provider Nurse Practitioner
DX: M48.04 Spinal stenosis, thoracic region (principal); M54.14 Radiculopathy, thoracic region; M48.062 Spinal stenosis, lumbar region with neurogenic claudication; M46.1 Sacroiliitis, not elsewhere classified; M47.816 Spondylosis without myelopathy or radiculopathy, lumbar region; M79.18 Myalgia, other site; M54.6 Pain in thoracic spine
CPT/HCPCS: G0463

== ENCOUNTER 2025-02-02 09:29 | Day surgery (SDC) | payer MEDICARE, SELFPAY ==
[2025-02-02 10:37] VITALS: BP 128/91; PULSE 90; TEMP 36.3; O2SAT 96
[2025-02-02 10:44] LABS: Glucometer 94 mg/dL (74-106)
[2025-02-02 11:09] VITALS: BP 143/82; PULSE 89; O2SAT 97
[2025-02-02] MEDS: 0.9 % SODIUM CHLORIDE 10 ML SYRINGE - SALINE FLUSH INJ (11:10)
[2025-02-02] MEDS: BUPIVACAINE HCL 0.25% PF 25 MG/10 ML VIAL INJ (11:10)
[2025-02-02] MEDS: DEXAMETHASONE SOD PHOS 10 MG/ML VIAL INJ (11:11)
[2025-02-02] MEDS: LIDOCAINE HCL 2% 400 MG/20 ML MDV 3 ML INJ (11:11)
[2025-02-02] MEDS: IOHEXOL 240 MG/ML - 10 ML VIAL INJ (11:11)
[2025-02-02 11:12] VITALS: BP 157/86; PULSE 92; O2SAT 99
--- NOTE | 2025-02-02 11:20 | W.PM.PROCNOT ---
Date of procedure: 02/02/25 Pre-op diagnosis: M54.14 Post-op diagnosis: same as pre-op Procedure: Procedure: Bilateral T10-11 transforaminal epidural steroid injection Medications: Bupivacaine 0.25% 1cc, lidocaine 1% 1cc, dexamethasone 10mg The patient was seen and examined in the preoperative holding area.? Informed consent was obtained and placed on the chart.? Patient was brought to the medical procedure unit and placed in the prone position where a timeout was completed verifying the correct patient, procedure site, position, and planned special equipment using sterile aseptic technique.? Under direct fluoroscopic visualization a 25-gauge Quincke tipped spinal needle was advanced at level left T10-11 to the designated neural foramen where contrast dye was injected to show adequate spread.? There was no evidence of vascular or adverse uptake.? Epidural spread was appreciated.? The above-mentioned injectate was then placed in a 1.5 mL aliquot preceded by negative aspiration.? The needle was removed. The same procedure, at the same level, was completed on the opposite side. ? Patient was taken to the postprocedural recovery area and monitored for an appropriate length of time before found suitable for discharge in the accompaniment of a responsible adult. Anesthesia: Local Surgeon: [place] Pathology: none sent Condition: stable Disposition: no change
== END 2025-02-02 11:18 | disposition home or self-care (01) ==
LOC: SURGOUT 09:31
PROVIDERS: PCP Family Medicine; Visit Provider Anesthesiology
DX: M54.14 Radiculopathy, thoracic region (principal); E11.8 Type 2 diabetes mellitus with unspecified complications
CPT/HCPCS: 36415; 64479; 82948; J0665; J1100; Q9966

== ENCOUNTER 2025-02-09 16:51 | Outpatient (OUT) | payer MEDICARE, SELFPAY | END 2025-02-09 16:52 | disposition home or self-care (01) | LOC: US 16:52 | PROVIDERS: PCP Family Medicine; Visit Provider Family Medicine | DX: R60.0 Localized edema (principal) | CPT/HCPCS: 93971 ==

== ENCOUNTER 2025-02-12 09:15 | Outpatient (OUT) | payer MEDICARE, SELFPAY ==
--- NOTE | 2025-02-12 09:41 | PM.CN ---
Consult Note: HPI Data of Consult Patient: known to practice within the last 3 years Requesting Physician: Roxie Calixto NP Primary Care Provider: Yuliana Cortez MD Consult Narrative Reason for consult: back pain Narrative: 64yof who presents for evaluation. longstanding middle back, low back, and bilateral LE pain. has engaged in a series of provider directed home exercises > 6 weeks, without lasting benefit. uses otc pain meds as needed. denies adverse med side effects. recently underwent bilateral T10/110 TFESI with 80% improvement ongoing. reports prior bilateral L4/5 TFESI provided significant relief for 1 month but no lasting relief. pain today 8/10 in low back and BLE sharp squeezing pain. Pain increased with standing, walking, bending, lifting, getting dressed, sleeping, and ADLs. cc:: CC: Roxie Calixto NP Review of Systems ROS Status of ROS 10 or more systems reviewed and unremarkable except as noted in history and below Musculoskeletal Reports: back pain and joint pain; Denies: extremity pain PFSH PFSH Medical History (Updated 01/22/25 @ 09:14 by Roxie Calixto NP) Spinal stenosis ?M48.00 - Spinal stenosis, site unspecified (ICD-10) Carpal tunnel syndrome ?G56.00 - Carpal tunnel syndrome, unspecified upper limb (ICD-10) Anxiety ?F41.9 - Anxiety disorder, unspecified (ICD-10) Hiatal hernia ?K44.9 - Diaphragmatic hernia without obstruction or gangrene (ICD-10) Acid reflux ?K21.9 - Gastro-esophageal reflux disease without esophagitis (ICD-10) Fatty liver ?K76.0 - Fatty (change of) liver, not elsewhere classified (ICD-10) Sleep apnea ?G47.30 - Sleep apnea, unspecified (ICD-10) High cholesterol ?E78.00 - Pure hypercholesterolemia, unspecified (ICD-10) HTN (hypertension) ?I10 - Essential (primary) hypertension (ICD-10) Diabetes ?E11.9 - Type 2 diabetes mellitus without complications (ICD-10) Surgical History History of foot surgery ?Z98.890 - Other specified postprocedural states (ICD-10) History of total hip arthroplasty ?Z96.649 - Presence of unspecified artificial hip joint (ICD-10) S/P trigger finger release ?Z98.890 - Other specified postprocedural states (ICD-10) History of carpal tunnel release ?Z98.890 - Other specified postprocedural states (ICD-10) Hx of tonsillectomy ?Z90.89 - Acquired absence of other organs (ICD-10) Social History Little interest or pleasure in doing things: not at all Feeling down, depressed, or hopeless: not at all Meds Home Medications and Allergies Home Medications ?Medication ?Instructions ?Recorded ?Confirmed ?Type acetaminophen 325 mg tablet 325 mg PO BID PRN pain 08/18/24 02/02/25 History (Tylenol) atorvastatin 20 mg tablet 20 mg PO DAILY 08/18/24 02/02/25 History cholecalciferol (vitamin D3) 1,250 50,000 unit PO QWEEK 08/18/24 02/02/25 History mcg (50,000 unit) capsule levothyroxine 75 mcg capsule 75 mcg PO DAILY 08/18/24 02/02/25 History loratadine 5 mg-pseudoephedrine ER 1 tab PO DAILY PRN allergy symptoms 08/18/24 02/02/25 History 120 mg tablet,extended release,12hr (Claritin-D 12 Hour) metoprolol succinate 25 mg 25 mg PO DAILY 08/18/24 02/02/25 History tablet,extended release 24 hr ferrous sulfate 325 mg (65 mg 325 mg PO DAILY 10/23/24 02/02/25 History iron) tablet (Feosol) multivitamin (Daily Multi-Vitamin 1 tab PO DAILY 10/23/24 02/02/25 History tablet) omeprazole 40 mg capsule,delayed 40 mg PO DAILY 01/28/25 01/28/25 History release diazepam 10 mg tablet (Valium) 10 mg PO BID 02/02/25 02/02/25 History Allergies Allergy/AdvReac Type Severity Reaction Status Date / Time Penicillins Allergy Unknown Unknown Verified 02/02/25 10:35 metformin AdvReac Severe Cramping Verified 02/02/25 10:35 of the Muscles seritonin Allergy Unknown Unknown Uncoded 02/02/25 10:35 Exam Constitutional Documenting provider has reviewed patient's vital signs: yes Common normals: no apparent distress, oriented x3, healthy appearing, alert and well nourished General appearance: cooperative HENGA Common normals: normocephalic, hearing grossly normal bilaterally and moist oral mucous membranes Head and scalp: normocephalic Eye Common normals: PERRL Pupil: PERRL Neck & C-Spine Common normals: full ROM General: normal visual inspection Chest Common normals: inspection of chest normal Respiratory Common normals: normal respiratory effort, no retractions and no use of accessory muscles Back & Pelvis Thoracic spine/upper back: ROM not limited, no pain with ROM and no thoracic spinal tenderness Lumbar spine/lower back: ROM limited, pain with ROM, straight leg raise positive right and straight leg raise positive left Sacroiliac joints: SI joint(s) abnormal Other: strength 4/5 in BLE Neuro Common normals: oriented x3 Sensorium/orientation: alert Motor exam: no movement abnormalities noted Psych Common normals: mental status grossly normal, thought process normal, cooperative, affect normal, speech normal and activity/motor behavior normal Speech: normal speech Thought process: normal thought process Results Imaging Lumbar MRI: Attestation: I have reviewed the pertinent imaging results. Radiologist's impression: There is dextroconvex scoliosis with apex at L3. Straightening of the lumbar spine. No subluxation. No compression fractures. Moderate disc space narrowing in the lower thoracic spine to the L2-L3 level and mild disc space narrowing in the remaining lumbar spine. Modic type I changes at L1-L2. Conus medullaris terminates at L2. No abnormal signal in the distal spinal cord and the conus medullaris. L5-S1: Broad-based disc protrusion, moderate facet arthropathy and ligamentum flavum hypertrophy. Mild spinal canal, moderate to severe right and moderate left foraminal stenosis. L4-L5: Disc bulge, severe facet arthropathy and ligamentum flavum hypertrophy. Moderate to severe spinal canal and bilateral lateral recess stenosis and mild bilateral foraminal stenosis. L3-L4: Disc bulge and moderate facet arthropathy. Mild to moderate spinal canal and left foraminal stenosis. L2-L3: Disc bulge and moderate facet arthropathy. Superimposed small right subarticular disc extrusion or sequestration with inferior migration. No spinal canal stenosis. Minimal bilateral foraminal stenosis. L1-L2: Disc bulge and mild facet arthropathy. No spinal canal stenosis. Moderate right foraminal stenosis. T12-L1: Minimal disc bulge without spinal canal or significant neural foraminal stenosis. Thoracic MRI: Attestation: I have reviewed the pertinent imaging results. Radiologist's impression: FINDINGS: A marker is present posteriorly at the level of the C6-C7 intervertebral discs as well as at the T7-T8 intervertebral disc posteriorly. The bones of the thoracic spine are in anatomic alignment. There is preservation of vertebral body heights. There is mild disc height loss at T6-T7, T7-T8, T8-T9, T9-T10, T10-T11, T11-T12, T12-L1, and L1-L2. The marrow signal is within normal limits. No epidural or paraspinous fluid collection is appreciated. The visualized paraspinous soft tissues are within normal limits. Incidental note is made of a hiatal hernia with gastric fundus and body in the lower mediastinum. At T1-T2: There is a normal disc, central canal, and neural foramen. At T2-T3: There is a broad-based disc bulge with facet hypertrophy. There is mild spinal canal stenosis with mild bilateral neural foraminal narrowing. At T3-T4: There is left-sided facet hypertrophy with mild spinal canal narrowing. No significant neural foraminal stenosis. At T4-T5: There is a normal disc, central canal, and neural foramen. At T5-T6: There is a normal disc, central canal, and neural foramen. At T6-T7: There is a normal disc, central canal, and neural foramen. At T7-T8: There is a broad-based disc bulge. There is a left central disc protrusion. There is mild spinal canal narrowing with mild left neural foraminal stenosis. At T8-T9: There is facet hypertrophy contributing to mild spinal canal stenosis with mild bilateral neural foraminal stenosis. At T9-T10: There is facet hypertrophy left greater than right. There is a left foraminal disc protrusion contributing to moderate left neural foraminal narrowing. There is mild spinal canal stenosis. At T10-T11: There is a broad-based disc bulge. There is facet hypertrophy with ligamentum flavum thickening contributing to mild to moderate spinal canal narrowing. There is mild right and moderate left neural foraminal stenosis. At T11-T12: There is a broad-based disc bulge with facet hypertrophy. There is mild spinal canal narrowing with moderate left and mild right neural foraminal stenosis. At T12-L1: There is a broad-based disc bulge with facet hypertrophy. There is mild spinal canal narrowing with mild bilateral neural foraminal stenosis. Additional Findings Additional findings: If on a controlled substance or opioids, I have checked an [place] report on this patient and there are no aberrancies noted in the prescribing history.??If on a controlled substance or opioid a drug screen was completed and reviewed within the last year, and if there has not been a drug screen completed we ordered one today to monitor higher risk, state monitored pain medication use. As part of providing excellent, safe, comprehensive care, the following was completed at our patient's visit: 1. A medication reconciliation and review to ensure accurate knowledge of current/active medications, including asking our patients to inform us about any [id number] medications or herbal remedies/nutritional supplements/alternative remedies. 2. A review to specifically ensure our patients have had annual screening for screening for depression, screening for tobacco use, and screening for unhealthy alcohol use. For concerning screenings had a discussion with the patient, provided patient education, and recommended follow-up with primary care provider when appropriate. If patient noted with a risk of falling, they received education on strength, gait, and balance training to prevent future risk of falling. Portions of this note may have been carried over from the previous visit and updated as appropriate. Please note this office utilizes paper charting in addition to the electronic medical record. A list of current medications, vitals, and PMH is available there as the clinical staff outside of myself do not have access to [facility] charting during the clinic day operations. As part of providing quality comprehensive care the current medications, vitals, and PMH were reviewed in the paper chart. Assessment and Plan Assessment and Plan (1) Thoracic stenosis: (2) Thoracic radiculopathy: (3) Lumbar stenosis with neurogenic claudication: (4) Sacroiliitis: (5) Lumbar spondylosis: (6) Myalgia, other site: (7) Chronic thoracic back pain: Plan 64 year old female with chronic thoracic and lumbar pain presents with failure to respond to PT/Provider guided HEP >6 weeks, heat, ice, tylenol, cannot take NSAIDs due to hiatal hernia. advanced imaging consistent with thoracic stenosis and lumbar stenosis. will refer to NS at this time for evaluation of thoracic and lumbar stenosis with significant functional impairement, consider scs trial if nonsurgical. failed gabapentin and pregabalin in the past, will trial zonegran 50mg HS for 1 week increasing to BID. f/u 1 month to evaluate medication regimen.
== END 2025-02-12 09:16 | disposition home or self-care (01) ==
PROVIDERS: PCP Family Medicine; Visit Provider Nurse Practitioner
DX: M48.04 Spinal stenosis, thoracic region (principal); M54.14 Radiculopathy, thoracic region; M48.062 Spinal stenosis, lumbar region with neurogenic claudication; M46.1 Sacroiliitis, not elsewhere classified; M47.816 Spondylosis without myelopathy or radiculopathy, lumbar region; M54.6 Pain in thoracic spine; M79.18 Myalgia, other site
CPT/HCPCS: G0463

== ENCOUNTER 2025-02-13 11:45 | Outpatient (OUT) | payer MEDICARE, SELFPAY ==
--- NOTE | 2025-02-13 11:54 | XR_ITS ---
The [address] [address] Patient Name: NAVARRO SMITH MRN: [id number] date: 1960 Sex: F Assigned Patient Location: [facility] Current Patient Location: [facility] Accession/Order Number: [id number] Exam Date: 02/13/2025 15:59 Report Date: 02/13/2025 16:02 At the request of: AMY KASPER DPDuy Procedure: XR foot LT min 3V XR foot LT min 3V 02/13/2025 12:04 PM SIGNS AND SYMPTOMS: Chronic left foot pain PROTOCOL: Frontal, lateral, and oblique radiographs of the left foot COMPARISON: 07/22/2024 FINDINGS: Postoperative changes are noted at the first tarsometatarsal junction with fusion across the hindfoot junction similar prior exam. There is evidence of prior hardware fixation of the talus and calcaneus. There is plantar surface contour spurring. There is diffuse soft tissue swelling. XR/XR foot LT min 3V IMPRESSION: Similar postoperative changes are noted in the left foot. No hardware complication or change in alignment. No acute bony injury. Impression dictated by: Magdy Crooks M.D. 02/13/2025 4:02 PM Dictation Location: [place] [address] Electronically authenticated by: [id number] Y Date: 02/13/2025 16:02
== END 2025-02-13 11:46 | disposition home or self-care (01) ==
LOC: RAD 11:47
PROVIDERS: PCP Family Medicine; Visit Provider Podiatrist Foot & Ankle Surgery
DX: M79.672 Pain in left foot (principal); Z98.890 Other specified postprocedural states
CPT/HCPCS: 73630

== ENCOUNTER 2025-03-12 10:36 | Outpatient (OUT) | payer MEDICARE, SELFPAY ==
--- OUTSIDE RECORDS SUMMARY | 2025-03-11 06:13 | XMS_ITS | Continuity of Care Document ---
Author Organization [facility] Address [address] [place] [address] Phone Care Team Providers Care All Purpose Clerk Name Role Phone Yuliana Cortez MD Primary Care Provider Paulino Hughes MD Admit Provider Paulino Hughes MD Attending Provider [phone] Amilcar Kirkland APRN Attending Provider Care Teams Patient Care Team Team Status: Active Member Role Status Dates Yluiana Cortez MD Primary Care Provider Active Visit Care Team Team Status: Inactive Member Role Status Dates Yuliana Cortez MD Primary Care Provider Active Start: December 12, 2024 End: December 15, 2024 Paulino Hughes MD Admit Provider, Atte constantineing Provider Active Start: December 12, 2024 End: December 15, 2024 Visit Care Team Team Status: Active Member Role Status Dates Yuliana Cortez MD Primary Care Provider Active Start: December 17, 2024 Tara Nicholson CMA Attending Provider Active Start: December 17, 2024 Visit Care Team Team Status: Inactive Member Role Status Dates Yuliana Cortez MD Primary Care Provide r, Attending Provider Active Start: December 19, 2024 End: December 19, 2024 Visit Care Team Team Status: Active Member Role Status Dates Yuliana Cortez MD Primary Care Provider Active Start: January 06, 2025 Suze Hurtado MD Attending Provider Active St art: January 06, 2025 Visit Care Team Team Status: Inactive Member Role Status Dates Yuliana Cortez MD Primary Care Provider Active Start: February 03, 2025 End: February 03, 2025 Amilcar Kirkland APRN Attending Provider Active Start: February 03, 2025 End: February 03, 2025 Visit Care Team Team Status: Inactive Member Role Status Dates Yuliana Cortez MD Primary Care Provide r, Attending Provider Active Start: February 09, 2025 End: February 09, 2025 Visit Care Team Team Status: Inactive Member Role Status Dates Yuliana Cortez MD Primary Care Provider Active Start: February 16, 2025 End: February 16, 2025 Amilcar Kirkland APRN Attending Provider Active Start: February 16, 2025 End: February 16, 2025 Visit Care Team Team Status: Inactive Member Role Status Dates Yuliana Cortez MD Primary Care Provider Active Start: March 02, 2025 End: March 02, 2025 mAilcar Kirkland APRN Attending Provider Active Start: March 02, 2025 End: March 02, 2025 Visit Care Team Team Status: Inactive Member Role Status Dates Yuliana Cortez MD Primary Care Provider Active Start: March 05, 2025 End: March 05, 2025 Saad Cortez MD Attending Provider Active Star t: March 05, 2025 End: March 05, 2025 Patient Care Team Team Status: Inactive Member Role Status Dates Yuliana Cortez MD Primary Care Provider Active Start: March 11, 2025 End: March 11, 2025 Amilcar Kirkland APRN Attending Provider Active Start: March 11, 2025 End: March 11, 2025 Chief Complaint and Reason for Visit Chief Complaint Admit Date Hernia December 12, 2024 5:4 0am Amb Documentation December 17, 2024 10: 13am [facility]; surgery Dr. Hughes December 19, 2024 9:27am 3 month follow up February 03, 2025 10:07a m leg and feet swelling/pain February 09 1:03pm R10.10 Z87.19 February 16, 2025 7:34a m r93.5 March 02, 2025 12:16 pm BACK PAIN March 05, 2025 1:45p m 3m f/u hiatal hernia/GERD/Fatty Liver Ju ne 2024 9:37am Reason for Visit Admit Date Hypertension December 12, 2024 5:4 0am Hypothyroidism December 12, 2024 5:4 0am Paraesophageal hernia December 12, 2024 5 :40am Chronic low back pain December 19, 2024 9 :27am Constipation December 19, 2024 9:2 7am Paraesophageal hernia December 19, 2024 9 :27am Dyspepsia February 03, 2025 10:07a m Fatty liver February 03, 2025 10:07a m GERD (gastroesophageal reflux disease) M ay 2024 10:07am Paraesophageal hiatal hernia February 03 10:07am Edema of left lower extremity February 09, 2025 1:03pm Greater trochanteric bursitis of both hi ps March 05, 2025 1:45pm Inflammation of both sacroiliac joints J une 2024 1:45pm Low back pain March 05, 2025 1:45p m Lumbar stenosis March 05, 2025 1:45p m Allergies, Adverse Reactions, Alerts Allergen Type Severity Reaction Last Updated Verified Status duloxetine Allergy Unknown March 11 9:45am Yes Active metformin Allergy Unknown abdominal cramping March 012024 9:45am Yes Active Penicillins Allergy Unknown Rash March 11 9:45am Yes Active serotonin Allergy Unknown temporary blind ness, couldn't feel self breath August 28, 2023 5:53pm No Active Social History Smoking Status Status Start Date End Date Date of Observa tion Ex-smoker (finding) December 122024 6:18am Observation Status Observation Response Date of Response Patient Sex Female March 11, 2025 10:12am Assigned Sex Female April 02 2 Social History Assessments SDOH Follow up Observation Response Date Recorded Has the SDOH screening changed since admission? N December 15, 2024 10:59am SDOH Follow up Observation Response Date Recorded Has the SDOH screening changed since admission? N December 12, 2024 10:51am Family History Relationship Condition Age at Onset Recorded Date/T reyna father Diabetes mellitus Unknown Congestive heart failure Unknown Heart disease Unknown Unknown mother Osteoarthritis Unknown Unknown Primary malignant ne oplasm of bone marrow Unknown Macular degeneration Unknown daughter Hypertension Unknown son Family history of mental disorder Unknown Hypertension Unknown brother Myocardial infarction Unknown Problems Active Problems Medical Problem Onset Date Status Edema of left lower extremity Ac tive Medicare annual wellness visit, subsequent Active HERRERA (obstructive sleep apnea) Ac tive Greater trochanteric bursitis of both hips Active Aftercare following joint replacement Active Discogenic thoracic pain Active Primary osteoarthritis of right hip Active Family history of von Willebrand disease Active Lumbar stenosis Active Low back pain Active Sinusitis, acute maxillary Activ e Chronic low back pain Active Chronic pain Active Fatty liver Active Fatty liver Active Paraesophageal hiatal hernia Act pradeep Anemia Active Arrhythmia Active Cough Active Depression Active Dyspepsia Active Fibromyalgia Active Hyperlipidemia Active Hyperlipidemia Active Hypothyroidism Active Mixed hyperlipidemia Active S/P total right hip arthroplasty Active Arthritis of right hip Active Inflammation of both sacroiliac joints Active Essential (primary) hypertension Active Bloating Active BMI 40.0-44.9, adult Active Pre-diabetes Active Pre-diabetes Active Solitary lung nodule Active Abnormal bruising Active GERD (gastroesophageal reflux disease) Active Hypertension Active Hypertension Active Constipation Active Arthritis of lumbosacral spine A ctive Obesity Active Arthritis of foot Active Inactive/Resolved Problems Medical Problem Onset Date Status Chest congestion Resolved Non-cardiac chest pain Resolved Preoperative examination Resolve d Change in voice Resolved Left lower lobe pneumonia Resolv ed Bronchitis Resolved Paraesophageal hernia Resolved Medications Medication Status Dose Units Route Directions Qty Days St art Date Stop Date End Date Instructions Levothyroxin e 50 mcg tablet Discont inued 0 .ROUTE .COMPLEX 2023 1:46pm January 09, 2024 2:16p m TAKE 1 TABLET BY MOUTH ONCE DAILY IN THE MORNING ON AN EMPTY STOMACH Pantoprazole 40 mg tablet,delay ed release (DR/EC) Discont inued 0 .ROUTE .COMPLEX 2023 1:47pm March 11, 2024 9:07a m TAKE 1 TABLET BY MOUTH DAILY Diclofenac Sodium 75 mg tablet,delay ed release (DR/EC) Discont inued 0 .ROUTE .COMPLEX 180 December 21, 2023 3:37pm March 11, 2024 9:07a m TAKE 1 TABLET BY MOUTH TWICE DAILY Albuterol Sulfate 90 mcg/actuatio n HFA aerosol inhaler Discont inued 2 PUFF INHALA TION EVERY 4-6 HOURS as needed for shortness of breath or wheezing 6.7 January 01, 2024 12:00a m Augus t 2023 9:56a m Levothyroxin e 50 mcg tablet Discont inued 0 .ROUTE .COMPLEX 30 January 09, 2024 2:16pm Septe mber 2023 8:46a m TAKE 1 TABLET BY MOUTH IN THE MORNING ON AN EMPTY STOMACH Atorvastatin 20 mg tablet Discont inued 0 .ROUTE .COMPLEX 90 January 09, 2024 2:16pm Octob er 2023 10:27 am TAKE 1 TABLET BY MOUTH DAILY Pantoprazole 40 mg tablet,delay ed release (DR/EC) Discont inued 0 .ROUTE .COMPLEX March 11, 2024 9:06am Augus t 2023 11:42 am TAKE 1 TABLET BY MOUTH DAILY Diclofenac Sodium 75 mg tablet,delay ed release (DR/EC) Discont inued 0 .ROUTE .COMPLEX 180 March 11, 2024 9:07am Novem 2023 1:40p m TAKE 1 TABLET BY MOUTH TWICE DAILY Albuterol Sulfate 90 mcg/actuatio n HFA aerosol inhaler Active 0 .ROUTE .COMPLEX 6.7 May 08, 2024 9:56am INHALE 2 PUFFS BY MOUTH EVERY 4 TO 6 HOURS NEEDED SHORTNESS OF BREATH or FOR WHEEZING Pantoprazole 40 mg tablet,delay ed release (DR/EC) Discont inued 0 .ROUTE .COMPLEX 30 May 12, 2024 11:42a m Octob er 2023 8:28a m TAKE 1 TABLET BY MOUTH DAILY Levothyroxin e 50 mcg tablet Discont inued 0 .ROUTE .COMPLEX 30 2023 8:46am Octob er 2023 2:03p m TAKE 1 TABLET BY MOUTH ONCE DAILY IN THE MORNING ON AN EMPTY STOMACH Atorvastatin 20 mg tablet Discont inued 0 .ROUTE .COMPLEX 90 Octobe r 2023 10:27a m December 02, 2024 5:04p m TAKE 1 TABLET BY MOUTH DAILY Levothyroxin e 75 mcg tablet Discont inued 0 .ROUTE .COMPLEX 90 Octobe r 2023 2:03pm December 02, 2024 5:04p m TAKE 1 TABLET BY MOUTH ONCE DAILY IN THE MORNING ON AN EMPTY STOMACH Pantoprazole 40 mg tablet,delay ed release (DR/EC) Discont inued 0 .ROUTE .COMPLEX 30 Octobe r 2023 8:28am Janua ry 2024 1:21p m TAKE 1 TABLET BY MOUTH DAILY Pantoprazole 40 mg tablet,delay ed release (DR/EC) Discont inued 0 .ROUTE .COMPLEX 30 Octuar y 2024 1:21pm December 02, 2024 5:00p m TAKE 1 TABLET BY MOUTH DAILY Levothyroxin e 75 mcg tablet Active 0 .ROUTE .COMPLEX January 12, 2025 2:44pm TAKE 1 TABLET BY MOUTH IN THE MORNING ON AN EMPTY STOMACH Atorvastatin 20 mg tablet Active 0 .ROUTE .COMPLEX January 12, 2025 2:44pm TAKE 1 TABLET BY MOUTH DAILY Mirabegron (Myrbetriq) 50 mg tablet extended release 24 hr Active 50 MG PO Daily February 10, 2025 12:00a m Doxycycline Hyclate 100 mg tablet Discont inued 100 MG PO Twice daily February 18, 2025 10:15a m March 05, 2025 1:58p m Atorvastatin 20 mg tablet Discont inued 20 MG PO Daily at bedtime [facility] er 2022 1:00am January 09, 2024 2:16p m Cholecalcife rol (Vitamin D3) (Vitamin D3) 50 mcg (2,000 unit) Tablet Active 50 MCG PO every day at noon [facility] er 2022 1:00am Levothyroxin e 50 mcg tablet Discont inued 50 MCG PO Every morning [facility] er 2022 1:00am 2023 1:46p m Pantoprazole 40 mg tablet,delay ed release (DR/EC) Discont inued 40 MG PO Every morning [facility] er 2022 1:00am 2023 1:47p m Diclofenac Sodium 75 mg tablet,delay ed release (DR/EC) Discont inued 75 MG PO Twice daily [facility] er 2022 1:00am Decem 2022 7:50a m Metoprolol Succinate 25 mg tablet extended release 24 hr Discont inued 25 MG PO Every morning Novemb er 2022 1:00am Octua ry 2024 11:16 am Tirzepatide (Mounjaro) 2.5 mg/0.5 mL Pen Injector Discont inued 2.5 MG SUBCUT every week Novemb er 2022 1:00am February 21, 2024 10:20 am Tirzepatide (Mounjaro) 2.5 mg/0.5 mL pen injector Discont inued 2.5 MG SUBCUT every week February 21, 2024 10:19a m February 21, 2024 10:49 am Metoprolol Succinate 25 mg tablet extended release 24 hr Discont inued 50 MG PO Every morning y 2024 11:15a m December 02, 2024 4:58p m Ferrous Sulfate 325 mg (65 mg iron) tablet,delay ed release (DR/EC) Active 325 MG PO every day at noon December 02, 2024 1:00am Loratadine (Claritin) 10 mg tablet Discont inued 10 MG PO Every morning December 02, 2024 1:00am February 03, 2025 10:16 am Metoprolol Succinate 50 mg tablet extended release 24 hr Active 50 MG PO Every morning December 02, 2024 1:00am Multivitamin tablet Active 1 TAB PO every day at noon December 02, 2024 1:00am Atorvastatin 20 mg tablet Discont inued 20 MG PO Daily at bedtime December 02, 2024 1:00am January 12, 2025 2:45p m Levothyroxin e 75 mcg tablet Discont inued 75 MCG PO Every morning December 02, 2024 1:00am January 12, 2025 2:45p m TAKE 1 TABLET BY MOUTH ONCE DAILY IN THE MORNING ON AN EMPTY STOMACH Oxycodone 5 mg tablet Discont inued 5 MG PO Every 6 hours as needed for pain 19 04December 13, 2024 December 19, 2024 9:48a m Ondansetron Hcl 4 mg tablet Discont inued 4 MG PO Every 8 hours as needed for nausea 9 December 15, 2024 8:46am December 19, 2024 9:48a m Sulfamethoxa zole-Trimeth oprim 800-160 mg tablet Discont inued 1 TAB PO Twice daily 2023 1:00am December 26, 2023 8:55a m Acetaminophe n 500 mg tablet Discont inued 1000 MG PO Every 8 hours as needed December 26, 2023 12:00a m January 03, 2024 11:02 am Loratadine-P seudoephedri ne (Claritin-D 24 Hour) 10-240 mg tablet extended release 24 hr Discont inued 1 TAB PO Daily as needed for allergy symptoms December 26, 2023 12:00a m Decem 2023 3:17p m Doxycycline Monohydrate 100 mg capsule Discont inued 100 MG PO Twice daily 20 07December 26, 2023 12:00a m February 21, 2024 10:19 am Acetaminophe n 500 mg tablet Active 1000 MG PO Twice daily January 03, 2024 11:02a m Benzonatate 200 mg capsule Discont inued 200 MG PO 2-3 TIMES PER DAY as needed for cough 30 Novemb er 2023 1:00am Decem 2023 3:17p m Fexofenadine (Ivone Allergy) 180 mg tablet Active 180 MG PO Daily February 03, 2025 12:00a m Zonisamide 50 mg capsule Active 50 MG PO Daily March 05, 2025 12:00a m Fluticasone Propionate 50 mcg/actuatio n spray,suspen tao Active 1 SPRAY INTRAN DAISY Daily as needed for allergy symptoms 2023 1:00am Diclofenac Sodium 75 mg tablet,delay ed release (DR/EC) Discont inued 75 MG PO Twice daily 2023 1:00am December 21, 2023 3:38p m Coq10 (Ubiquinol) (Qunol Rudy Coq10) 100 mg capsule Active 100 MG PO every day at noon 2023 1:00am Polyethylene Glycol 3350 (Miralax) 17 gram powder in packet Active 17 GM PO Daily as needed for constipatio n Novemb er 2023 1:00am Omeprazole 40 mg capsule,shell yed release(DR/E C) Active 40 MG PO Twice daily 60 30 2024 1:00am Doxycycline Hyclate 100 mg tablet Discont inued 100 MG PO Twice daily 14 February 09, 2025 12:00a m February 18, 2025 10:16 am Immunizations Immunization Event Date Not Given Reason Dose Number [employer] Lot Number Vaccine Information Statement (VIS) Detail COVID-19 (Pfizer) Bivalent Booster, Age 12Y+ August 31, 2022 COVID-19 (Pfizer) December 31, 2020 COVID-19 (Pfizer) January 19, 2021 COVID-19 (Pfizer) August 19, 2021 COVID-19 (Pfizer) February 24, 2022 COVID-19 Ad26.COV2.S ([employer]) August 16, 2024 COVID-19 mRNA, Comirnaty (Pfizer) December 31, 2020 COVID-19 mRNA, Comirnaty (Pfizer) January 19, 2021 COVID-19 mRNA, Comirnaty (Pfizer) August 19, 2021 COVID-19 Comirnaty (Pfizer) Tri-Sucrose 12+ February 24, 2022 COVID-19 (MODERNA) 12Y and older August 16, 2024 COVID-19 mRNA Bivalent Booster (Pfizer) August 31, 2022 COVID-19 (PFIZER) 12Y and older September 28, 2023 Quadrivalent Influenza (mdv) July 30, 2019 Influenza, seasonal, injectable, pf August 16, 2024 influenza, unspecified formulation June 25, 2020 Pneumococcal Polysacc. Vaccine, 23 valent June 25, 2020 Quadrivalent Influenza November 15, 2016 Quadrivalent Influenza July 12, 2018 Quadrivalent Influenza June 25, 2020 Quadrivalent Influenza November 20, 2021 Quadrivalent Influenza August 31, 2022 Quadrivalent Influenza September 28, 2023 Trivalent Influenza Vaccine August 16, 2024 Medical Equipment Device Date Implanted Device Details Acetabular shell September 03, 2023 MASON: [id number] Issuing Agency: [facility] Device Id: [id number] Expiration Date: 2033-03-15 Lot Number: [id number] Ceramic femoral head prosthesis September 03 [employer]ON: [id number] Issuing Agency: [facility] Device Id: [id number] Expiration Date: 2032-10-30 Lot Number: [id number] Coated hip femur prosthesis, modular September 03, 2023 MASON: [id number] Issuing Agency: [facility] Device Id: [id number] Expiration Date: 2028-03-28 Lot Number: [id number] Non-constrained polyethylene acetabular liner September 03, 2023 [place]ON: [id number] Issuing Agency: [facility] Device Id: [id number] Expiration Date: 2028-04-21 Lot Number: [id number] Procedures Procedure Date Performed Status XR abdomen 1V December 12, 2024 10:04am complet ed Restriction of Esophagogastr ic Junction, Percutaneous Endoscopic Approach December 12, 2024 active Repair Diaphragm, Percutaneous Endoscopic Approa ch December 12, [address] abdomen w con February 16, 2025 7:35am completed CT chest w con March 02, 2025 12:19pm completed Relevant Diagnostic Tests and/or Laboratory Data Laboratory Results Test Date/Time Result Interpretation Reference Range Result Comment Performing Site Vitamin B12 Level January 06, 2025 2:31pm 1032 pg/mL [id number] Performed at: [facility] [id number] Director: Luis Mukherjee PhD, Phone: [phone] 25-Hydroxy Vitamin D Total January 06, 2025 2:31pm 32.8 ng/mL <20 ng/mL Vit D [id number] <30 ng/mL Vit D insufficient 30-100 ng/mL Vit D sufficient>1 00 ng/mL Potential Toxicity Ferritin January 06, 2025 2:31pm 192.0 ng/mL 8.0-252.0 Iron Saturation January 06, 2025 2:31pm 17.0 % Anion Gap January 06, 2025 2:31pm 10.8 Basophils # (Auto) January 06, 2025 2:31pm 0.1 10 3/uL 0.0-0.1 Iron Level January 06, 2025 2:31pm 57.0 ug/dL 50.0-170.0 BUN/Creatinine Ratio January 06, 2025 2:31pm 16.5 Basophils (%) (Auto) January 06, 2025 2:31pm 0.9 % 0.2-2.0 Total Iron Binding Capacity January 06, 2025 2:31pm 335.0 ug/dL 250.0-450.0 Blood Urea Nitrogen January 06, 2025 2:31pm 15.0 mg/dL 7.0-18.0 Eosinophils # (Auto) January 06, 2025 2:31pm 0.1 10 3/uL 0.0-0.7 Calcium Level January 06, 2025 2:31pm 9.2 mg/dL 8.5-10.1 Eosinophils (%) (Auto) January 06, 2025 2:31pm 1.6 % 0.9-7.0 Chloride Level January 06, 2025 2:31pm 105 mmol/L 98-107 Hematocrit January 06, 2025 2:31pm 45.7 % 36.0-48.0 Carbon Dioxide Level January 06, 2025 2:31pm 28.2 mmol/L 21.0-32.0 Hemoglobin January 06, 2025 2:31pm 15.0 g/dL 12.0-16.0 Creatinine January 06, 2025 2:31pm 0.91 mg/dL 0.55-1.02 Immature Granulocyte # (Auto) January 06, 2025 2:31pm 0.02 10 3/uL 0.00-0.03 Estimated GFR () January 06, 2025 2:31pm >60 >=60 mL/min/1.73 m 2 Immature Granulocyte % (Auto) January 06, 2025 2:31pm 0.3 % 0.0-0.5 Estimated GFR (Non- January 06, 2025 2:31pm >60 >=60 mL/min/1.73 m 2 Lymphocytes # (Auto) January 06, 2025 2:31pm 1.7 10 3/uL 1.2-3.8 Glucose Level January 06, 2025 2:31pm 106 mg/dL 74-106 Lymphocytes (%) (Auto) January 06, 2025 2:31pm 24.6 % 20.5-60.0 Potassium Level January 06, 2025 2:31pm 4.0 mmol/L 3.5-5.1 Mean Corpuscular Hemoglobin January 06, 2025 2:31pm 30.2 pg 26.7-34.0 Sodium Level January 06, 2025 2:31pm 140 mmol/L 136-145 Mean Corpuscular Hemoglobin Concent January 06, 2025 2:31pm 32.8 g/dL 29.9-35.2 Mean Corpuscular Volume January 06, 2025 2:31pm 92.1 fL 81.0-99.0 Monocytes # (Auto) January 06, 2025 2:31pm 0.6 10 3/uL 0.3-0.8 Monocytes (%) (Auto) January 06, 2025 2:31pm 8.0 % 1.7-12.0 Mean Platelet Volume January 06, 2025 2:31pm 9.3 fL Below low normal 9.5-13.5 Neutrophils # (Auto) January 06, 2025 2:31pm 4.6 10 3/uL 1.4-6.5 Neutrophils (%) (Auto) January 06, 2025 2:31pm 64.6 % 43.0-75.0 Platelet Count January 06, 2025 2:31pm 345 10 3/uL 150-450 Red Blood Count January 06, 2025 2:31pm 4.96 10 6/uL 4.20-5.40 Red Cell Distribution Width January 06, 2025 2:31pm 13.9 % 11.0-15.0 Corrected White Blood Count January 06, 2025 2:31pm 7.0 10 3/uL 4.0-11.0 Blood Urea Nitrogen February 16, 2025 7:50am 16 mg/dL 7- [facility] [id number] [address] [place] [id number] Creatinine February 16, 2025 7:50am 0.79 mg/dL 0.60-1.20 [facility] [id number] [address] [place] [id number] Estimated GFR (CKD-EPI) February 16, 2025 7:50am > 60.0 mL/Min [facility] [id number] [address] [place] [id number] Pharmacy Creatinine Clearance (Chem February 16, 2025 7:50am N/A [facility] [id number] [address] [place] [id number] Bedside Glucose December 12, 2024 6:49am 99 mg/dL Random Glucose Reference Range is dependent on time and content of last meal. Glucose of more than 200 mg/dL in a nonstressed, ambulatory subject supports the diagnosis of Diabetes Mellitus. Point of Care testing Bedside Glucose Comment December 12, 2024 6:49am Glu2: cleaned meter Point of Care testing Diagnostic Imaging Reports Author Tony Parra [facility] Authored December 12, 2024 12: 51pm Report Dictated Date/Time Dictated By Status Radiology Report December 12, 2024 12:51pm Tony Parra MD completed [address] [address] XRay Report Signed Patient: Nicol Walters MR#: [id number] : 1960 Acct:[id number] Age/Sex: 64 / F ADM Date: 5 Loc: Room: [address] [place] [address] Type: ADM IN Attending Dr: Paulino Hughes MD Copies to: Paulino Hughes MD~ Ordering Provider: Paulino Hughes MD Date of Service: 12/12/24 XR/XR abdomen 1V: placement of nasogastric tube, repair of hiatal hernia Single view abdomen centered at the epigastric region INDICATION: NG tube placement, hiatal hernia repair. This morning COMPARISON: CT chest 12/10/2024 FINDINGS: Enteric tube tip and side-port left upper quadrant satisfactory position. No definite free air identified within the upper abdomen. Minimal patchy bibasilar opacities involving lungs likely atelectasis. XR/XR abdomen 1V IMPRESSION: Satisfactory position enteric tube. Impression dictated by: Tony Parra M.D.12/12/2024 12:54 PM Dictation Location: [place] [address] Transcribed By: [facility] 12/12/24 1254 Dictated By: Tony Parra MD 12/12/24 1251 Signed By: <Electronically signed by Tony Parra MD in OV> 12/12/24 1254 Author Magdy Crooks [facility] Authored February 16, 2025 12:11 pm Report Dictated Date/Time Dictated By Status Radiology Report February 16, 2025 12:11pm Magdy burrows II MD completed [address] [place] [address] CT Scan Report Signed Patient: Nicol Walters MR#: [id number] : 1960 Acct:[id number] Age/Sex: 64 / F ADM Date: 5 Loc: CT Room: Type: [facility] Attending Dr: Amilcar Kirkland APRN Copies to: Amilcar Kirkland APRN~ Ordering Provider: Amilcar Kirkland APRN Date of Service: 02/16/25 CT/CT abdomen w con: R10.10 - Upper abdominal pain, unspecified CT abdomen w con 02/16/2025 7:39 AM SIGNS AND SYMPTOMS: Upper abdominal pain, reflux, history of hiatal hernia repair TECHNIQUE: Multidetector ct axial images of the abdomen were obtained without IV contrast. Multiplanar reformats were performed and reviewed to further define anatomy and possible pathology. CT was performed with one or more of the following dose reduction techniques: Automated exposure control, adjustment of the mA and/or kV according to patient size, or use of iterative reconstruction technique. COMPARISON: 12/10/2024 FINDINGS: Lower Chest: There is a hiatal hernia with gastric fundus in the lower mediastinum. Fluid is noted adjacent to the gastric fundus and gastroesophageal junction within the hiatal hernia. The fluid collection is new when compared to the prior exam. Fluid collection is only partially visualized and is of uncertain etiology. Atelectasis is noted in the lower lobes, left greater than right. ABDOMEN: Liver: Within normal limits. Bile Ducts: Normal caliber. Gallbladder: No calcified gallstones. Normal caliber wall. Pancreas: Within normal limits. Spleen: Within normal limits. Adrenals: Within normal limits. Kidneys: Within normal limits. Bowel: Normal caliber. Mesenteric Lymph Nodes: No enlarged mesenteric lymph nodes. Peritoneum: No ascites or free air, no fluid collection. Vessels: within normal limits Retroperitoneum: Within normal limits. Abdominal Wall: Within normal limits. Bones: Degenerative changes are noted in the thoracic and upper lumbar spine. CT/CT abdomen w con IMPRESSION: There is a hiatal hernia with gastric fundus in the lower mediastinum. Fluid is noted adjacent to the gastric fundus and gastroesophageal junction within the hiatal hernia. The fluid collection is new when compared to the prior exam. Fluid collection is only partially visualized and is of uncertain etiology. Follow-up with contrast-enhanced CT of the chest is recommended. Impression dictated by: Magdy Coroks M.D. 02/16/2025 12:18 PM Dictation Location: [place] [address] Transcribed By: [facility] 02/16/25 1218 Dictated By: Magdy Crooks II, MD 02/16/25 1211 Signed By: <Electronically signed by Magdy Crooks II, MD in OV> 02/16/25 1218 Author Kane Katz [facility] Authored March 02, 2025 4:22p m Report Dictated Date/Time Dictated By Status Radiology Report March 02, 2025 4:22pm Kane Katz DO completed [facility] [place] [address] CT Scan Report Signed Patient: Nicol Walters MR#: [id number] : 1960 Acct:[id number] Age/Sex: 64 / F ADM Date: 5 Loc: CT Room: Type: [facility] Attending Dr: Amilcar Kirkland APRN Copies to: Amilcar Kirkland APRN~ Ordering Provider: Amilcar Kirkland APRN Date of Service: 03/02/25 CT/CT chest w con: R93.5 - Abnormal findings on diagnostic imaging of other ... CT Chest with contrast TECHNIQUE: Axial imaging with 2-D reconstruction. 90 cc of Isovue-300The CT exam was performed using one or more the following dose reduction techniques: Automated exposure control, adjustment of the MA and/or Kv according to patient size, or use of the iterative reconstruction technique. History: Abnormal lung findings. COMPARISON: CT of the abdomen, 02/16/2025, CT chest 12/10/2024 THYROID: Unremarkable TRACHEA AND BRONCHI: Patent ESOPHAGUS: Nondistended containing air. There is a fluid collection adjacent to the distal esophagus and the hiatal hernia on the right. This is low density. There are no associated air identified. Large hiatal hernia present. HEART: Within normal limits PERICARDIAL EFFUSION: None CORONARY ARTERY CALCIFICATION: None MEDIASTINUM: No adenopathy. No pneumoperitoneum. No mediastinal hematoma. PULMONARY JENY: No hilar mass or adenopathy is seen. THORACIC AORTA Unremarkable LUNG NODULE None LUNGS: Lungs are clear PLEURAL EFFUSION: None PNEUMOTHORAX: No pneumothorax seen. CHEST WALL: No abnormality AXILLA:Unremarkable BONY STRUCTURES thoracic spondylosis UPPER ABDOMEN: Images of the upper abdomen are noncontributory. CT/CT chest w con IMPRESSION: Development of low density fluid in the right portion of the hiatal hernia adjacent to the distal esophagus. There is no air within the collection. Uncertain etiology. No obvious perforation. Large hiatal hernia redemonstrated. No acute lung findings. Impression dictated by: Kane Katz M.D. 03/02/2025 4:28 PM Dictation Location: [facility]-20 Transcribed By: PWS 03/02/25 1628 Dictated By: Kane Katz DO 03/02/25 162 Signed By: <Electronically signed by Kane Katz DO in OV> 03/02/25 162 Vital Signs Vital Reading Result Reference Range Collection Date/Time Height 67.75 [in_i] December 15 12:36pm Weight 131.60 kg December 15 4:33am Body Temperature 98.0 [degF] 97.6-99.0 December 15, 2024 11:13am Heart Rate 67 /min 60-100 December 15 11:13am Respiratory rate 16 /min 12-December 15, 2024 11:13am Oxygen saturation by Pulse oximetry 95 % 95-100 December 15, 2024 11: 13am BP Systolic 133 mm[Hg] 100-140 December 15 11:13am BP Diastolic 80 mm[Hg] 60-100 December 15 11:13am Inhaled oxygen flow rate 4 L/min Nov 12:00am Height 67.75 [in_i] December 19 9:28am Weight 129.72 kg December 19 9:28am Heart Rate 80 /min 60-100 December 19 9:28am BP Systolic 143 mm[Hg] 100-140 December 19 9:28am BP Diastolic 85 mm[Hg] 60-100 December 19 9:28am BMI (Body Mass Index) 43.8 kg/m2 December 19, 2024 9:28am Height 67.5 [in_i] February 03, 2025 1 0:18am Weight 126.09 kg February 03, 2025 1 0:18am Heart Rate 83 /min 60-100 February 03, 2025 1 0:18am BP Systolic 127 mm[Hg] 100-140 February 03, 2025 1 0:18am BP Diastolic 79 mm[Hg] 60-100 February 03, 2025 1 0:18am BMI (Body Mass Index) 42.9 kg/m2 January 10:18am Height 67.5 [in_i] February 09, 2025 1:14pm Weight 128.13 kg February 09, 2025 1:14pm Heart Rate 90 /min 60-100 February 09, 2025 1:14pm BP Systolic 119 mm[Hg] 100-140 February 09, 2025 1:14pm BP Diastolic 82 mm[Hg] 60-100 February 09, 2025 1:14pm BMI (Body Mass Index) 43.6 kg/m2 February 092024 1:14pm Height 67 [in_i] March 05, 2025 1:54pm Weight 127.90 kg March 05, 2025 1:54pm BP Systolic 120 mm[Hg] 100-140 March 05, 2025 1:54pm BP Diastolic 73 mm[Hg] 60-100 March 05, 2025 1:54pm BMI (Body Mass Index) 44.1 kg/m2 March 052024 1:54pm Height 67 [in_i] March 11, 2025 9:44am Weight 127.45 kg March 11, 2025 9:44am BMI (Body Mass Index) 43.9 kg/m2 March 012024 9:44am Advance Directives Advance Directive Response Recorded Date/ Time Advance Directives No July 17, 2018 2:24pm Insurance Providers Guarantor Nicol Walters Address [address] [place] [id number] Contact Info. Home Phone: Payer Policy Id Coverage Id Subscriber's Name Subscriber Id Effective Date Expiration Date Medicare [id number] Nicol Walters [id number] Encounters Encounter Location(s) Arrival/Admit Date Discharge /Depart Date Provider(s) Discharged Inpatient [facility] December 12, 2024 5:40am December 15, 2024 12:55pm Paulino Hughes MD Non-patient / Non-visit [facility] December 17, 2024 10:13am Tara Nicholson CMA Departed Physician/[facility] [place] [facility] Visit [facility] December 19, 2024 9:27am December 19, 2024 10:01am Yuliana Cortez MD Non-patient / Non-visit [facility] January 06, 2025 2:31pm Suze Hurtado MD Departed Physician/[facility] [place] [facility] Visit [facility]ician [facility] Gastro February 03, 2025 10:07am February 03, 2025 10:48am Duy Munoz APRN Departed Physician/[facility] [place] [facility] Visit [facility] February 09, 2025 1:03pm February 09, 2025 1:55pm Yuliana Cortez MD Departed Clinical [facility] Scan [place] February 16, 2025 7:34am February 16, 2025 7:35am Duy Munoz APRN Departed Clinical [facility] Scan [facility] March 02, 2025 12:16pm March 02, 2025 12:17pm Duy Munoz APRN Departed Physician/[facility] [place] [facility] Visit [facility] Neurosurgery March 05, 2025 1:45pm March 05, 2025 2:31pm Saad Cortez MD Departed Physician/[facility] [place] [facility] Visit [facility] G[facility] March 11, 2025 9:37am March 11, 2025 10:12am Duy Munoz APRN Recent Diagnosis Onset Date Admit Date Hypertension December 12, 2024 5:40am Hypothyroidism December 12, 2024 5:40am Paraesophageal hernia November 5:40am Chronic low back pain November 9:27am Constipation December 19, 2024 9:27am Paraesophageal hernia November 9:27am Dyspepsia February 03, 2025 10 :07am Fatty liver February 03, 2025 10 :07am GERD (gastroesophageal reflux disease) February 03, 2025 10:07am Paraesophageal hiatal hernia February 03, 2025 10:07am Edema of left lower extremity Ma y 2024 1:03pm Greater trochanteric bursitis of both hips March 05, 2025 1:45pm Inflammation of both sacroiliac joints March 05, 2025 1:45pm Low back pain March 05, 2025 1 :45pm Lumbar stenosis March 05, 2025 1 :45pm Functional Status Observation Response Date Recorded Dressing Patient at Baseline December 15, 2024 12:55pm Eating Patient is Progressing Toward Ba seline December 15, 2024 12:55pm Bathing Patient is Progressing Toward Ba seline December 15, 2024 12:55pm Disability Status Patient at Baseline November 12:55pm Functional Status Assessments Mental Status Observation Response Date Recorded Cognitive Status Patient at Baseline December 15, 2024 12:55pm Cognitive/Mental Status Assessments Assessments Diagnosis Onset Date Resolution Status Admit Date Hypertension acute December 12, 2024 5:40am Hypothyroidism acute November 5:40am Paraesophageal hernia resolved [facility] 2024 5:40am Chronic low back pain acute [facility] 2024 9:27am Constipation acute December 19, 2024 9:27am Paraesophageal hernia resolved [facility] 2024 9:27am Dyspepsia acute February 03, 2025 10:07am Fatty liver acute February 03, 2025 10:07am GERD (gastroesophageal reflu x disease) acute February 03, 2025 10 :07am Paraesophageal hiatal hernia acute February 03, 2025 10:07am Edema of left lower extremity acute February 09, 2025 1:03pm Greater trochanteric bursiti s of both hips acute March 05, 2025 1 :45pm Inflammation of both sacroil iac joints acute March 05, 2025 1 :45pm Low back pain acute March 05, 025 1:45pm Lumbar stenosis acute March 05, 2025 1:45pm Plan of Treatment Author Amilcar Kirkland [facility] Authored February 03, 2025 11:38a m A 64-year-old female patient with diagnosis of fatty liver disease and GERD, history of hiatal hernia and Melissa fundoplication Continue omeprazole 40 mg twice daily as patient does get occasional nausea and sour taste upon bending over. Patient defers referral to weight management due to her hepatic steatosis. Patient educated on importance of lifestyle modifications with regard to metabolic disease. Patient concern for surgical result of Melissa fundoplication with Dr. Paulino Hughes, patient ordered CT scan for further evaluation as she does have some upper GI pain as well Patient to follow-up based on workup results, Author Yuliana [facility] Authored December 19, 2024 10: 09am s/p surgery 1 week ago. Gave pt hand out of postoperative diet after fundoplication. Followup w Dr. Hughes as scheduled. Notes problems sitting up 2-3 hours after eating due to chronic back pain. Encouraged her to follow the diet recommendations. Educated that it is common w zofran, oxy and postoperative. It has resolved with walking and eliminating those medications. Author Saad Cortez [facility] Authored March 05, 2025 2:34p m I independently reviewed the MRI of the lumbar spine and the report and the MRI of the thoracic spine and the report. Also during the testing any where we tested the patient had pain no matter what I pushed on. She has obvious trochanteric tenderness bilaterally she has significant sacroiliac and low back discomfort wherever I push. On MRI she has moderate stenosis L4-5 otherwise an adequate canal. Her thoracic spine is unremarkable. The patient had an ablation done a couple years ago by Dr. Mcgowan had some significant relief from that but has not had it repeated. She has been talked to about a dorsal column stimulator I would recommend an ablation before considering a dorsal column stimulator when I brought any of this up the patient told me you know I think I will just take a step back I am going to the gym and working out and trying to improve myself by more strength. I am not sure what this patient once or where the answers are to her problem but I would continue with conservative care she does not seem to have symptomatic neurogenic claudication. Author Yuliana [facility] Authored February 10, 2025 8:39a m Check US to r/o DVT. Start a ntibiotic to address potential cellulitis. Finish antibiotic as prescribed. Call if symptoms worsen or do not resolve. Pt expresses understanding. Future Tests Future scheduled test information is unavailable Pending Tests Test Name Ordered Date Scheduled Date US venous duplex LE LT February 09, 2025 1:35pm Future Visits Future appointment information is unavailable Referrals to Other Providers Reason for Referral Referral Start Date Provider Provider Contact Information Provider Address Call office for follow up 3-4 weeks Paulino Hughes MD Work Phone: [phone] [place] [phone] Future Procedures Procedure Name Ordered Date Scheduled Date Diet Supplement December 15, 2024 12:36pm November 292024 12:36pm Admit Status Order December 12, 2024 9:59am December 12, 2024 9:59am Discharge Order December 13, 2024 10:29am November 292024 10:29am Discharge Order December 13, 2024 10:25am November 292024 10:25am Future Medications Future medication information is unavailable Patient Instructions Instruction Admit Date Know your Meds December 12, 2024 5:4 0am Low back pain in adults December 19, 2024 9:27am Low back pain in adults March 05, 2025 1 :45pm Goals Acute Goals Author Authored Date Experience reduced anxiety * Identifies current stressors * Develops effective coping behaviors * Uses support services as appropriate [facility] December 15, 2024 1:09pm Remain free of complications [facility] December 15, 2024 1:09pm Understand preop/postop care/sensations * Verbalizes understanding of surgical procedure * Verbalizes understanding of sensations following surgery * Verbalizes understanding of post-op treatment plan [facility] December 15, 2024 1:09pm Report pain at tolerable lev el * Uses pain scale appropriately * Identify options for pain control - Analgesics - Narcotics - Non-medication measures [facility] December 15, 2024 1:09pm Absence of imbalanced fluid volume s/s [facility] December 15, 2024 1:09pm Absence of physical injury [facility] December 15, 2024 1:09pm Absence of surgical site infection [facility] December 15, 2024 1:09pm Absence of new skin breakdow n [facility] December 15, 2024 1:09pm Wound healing [facility] December 15, 2024 1:09pm Fall Prevention 2022 [facility] December 15, 2024 1:09pm Exhibit optimal tissue perfu tao * Exhibits adequate oxygenation and ventilation * Exhibits adequate cardiac output * Regains stable cardiac rhythm * Maintains optimal activity level * Maintains balanced intake and output [facility] December 15, 2024 1:09pm
--- OUTSIDE RECORDS SUMMARY | 2025-03-12 10:39 | XMS_ITS | Encounter Summary ---
Author Organization [facility] Address [address] [place] [address] Care Team Providers Care Rug Dry Room Attendant Name Role Phone Yuliana Cortez MD Primary Care Provider [phone] Deja Burnett DO Unavailable [phone] Encounter Details Date Type Department Care Team (Late Contact Info) Description 01/28/2025 External Result Encounter [facility] Unsolicited Frieda Wray [facility] Maria Teresa Hernandez, [place] [address] Social History Tobacco Use Types Packs/Day Years Used Date Smoking Tobacco: Former Cigarettes Alcohol Use Standard Drinks/Week Comments Never 0 (1 standard drink = 0.6 oz pur e alcohol) Caffeine: none Comments Unknown Sex and Gender Information Value Date Recorded Sex Assigned at Not on file Legal Sex Female 7:37 PM EDT Gender Identity Not on file Sexual Orientation Not on file documented as of this encounter Plan of Treatment Upcoming Encounters Date Type Department Care Team (Late Contact Info) Description 12/03/2025 9:00 AM EST Office Visit [facility] [address] [place], [place] [address] [id number] Frieda Wray DO [facility] [place], [place] [id number] documented as of this encounter Procedures Procedure Name Priority Date/Time Associated Diagnosis Comments CHLAMYDIA/GC BY PCR ([facility]) Routine 01/28/2025 2:51 PM EDT BRI, DNA, AMPLIFIED PROBE Routine 01/28/2025 2:51 PM EDT URINALYSIS, MANUAL ONLY Routine 01/28/2025 2:17 PM EDT CULTURE, URINE, ROUTINE Routine 01/28/2025 2:17 PM EDT documented in this encounter Results * CHLAMYDIA/GC BY PCR ([facility]) (01/28/2025 2:51 PM EDT) Pathologist [facility] CHLAMYDIA/GC BY PCR LAURIE SWAB SEE RESULTS BELOW Negative [facility] Comment: SPECIMEN SOURCE Swab Endocervix CHLAMYDIA DNA(PCR) Negative Chlamydia trachomatis not detected by nucleic acid amplification. This does not exclude the possibility of infection because results are dependent on adequate specimen collection. GONORRHOEAE DNA(PCR) Negative Neisseria gonorrhoeae not detected by nucleic acid amplification. This does not exclude the possibility of infection because results are dependent on adequate specimen collection. REPORT STATUS FINAL 01/29/2025 PERFORMED AT [address],[place] [address] The copy-to physician of this order is FRIEDA Anand ; JUN MCCLENDON The ordering physician of this order is JUN Carlisle 01/28/2025 2:51 PM EDT 01/28/2025 8:03 PM EDT us Frieda Wray DO LAB BLOOD ORDERABLES Final Resul t [facility] * Bri, DNA, amplified probe (01/28/2025 2:51 PM EDT) VAGINITIS PANEL PCR SEE RESULTS BELOW Not Detected [facility] Comment: SPECIMEN SOURCE Swab Vagina BACT. VAGINOSIS DNA Not Detected Qualitative results are reported based on detection and quantitation of targeted organism markers which include: Lactobacillus spp. (L. crispatus and L. jensenii), Gardnerella vaginalis, Atopobium vaginae, Bacterial Vaginosis Associated Bacteria-2 (BVAB-2) and Megasphaera-1. BRI SPECIES DNA Not Detected Bri species not detected include: C. albicans, C. tropicalis, C. parapsilosis or C. dubliniensis. BRI KRUSEI DNA Not Detected No Bri krusei detected. BRI GLABRATA DNA Not Detected No Bri glabrata detected. TRICHOMONAS VAG DNA Not Detected No Trichomonas vaginalis detected. BD MAX Vaginal Panel has not been evaluated for patients under 18 years old. Results for these patients should be reviewed and assessed in accordance with clinical presentation to determine patient diagnosis. REPORT STATUS FINAL 01/29/2025 PERFORMED AT [address], [place] [address] The copy-to physician of this order is FRIEDA Anand ; JUN MCCLENDON The ordering physician of this order is JUN Carlisle 01/28/2025 2:51 PM EDT 01/28/2025 8:03 PM EDT us Frieda Nils DO LAB BODY FLUIDS AND STOOLS ORDER [place] Final Result Performing Organization Address [facility] Co de Phone Number [facility] * Urine culture (01/28/2025 2:17 PM EDT) [facility] Signature Urine Culture SEE RESULTS BELOW [facility] Comment: SPECIMEN SOURCE Urine Urine, Clean Catch Midstream CULTURE RESULTS 10-50,000 ORGANISMS/mL NORMAL UROGENITAL [place] REPORT STATUS FINAL 01/29/2025 PERFORMED [address] [id number] The copy-to physician of this order is FRIEDA Anand ; JUN MCCLENDON The ordering physician of this order is JUN Carlisle 01/28/2025 2:17 PM EDT 01/28/2025 8:02 PM EDT us Frieda Nils DO LAB MICROBIOLOGY - GENERAL ORDER [place] Final Result Performing Organization Address City/[facility]/ZIP Co de Phone Number [facility] * (ABNORMAL) Urinalysis, manual only (01/28/2025 2:17 PM EDT) COLOR Yellow Yellow [facility] TURBIDITY Clear Clear [facility] SPECIFIC GRAVITY 1.021 1.003 - 1.035 NA [facility] NITRITE Negative Negative [facility] PH, URINE 6.0 5.0 - 8.5 NA [facility] LEUKOCYTE ESTERASE Large(A) Negative [facility] PROTEIN Negative Negative [facility] KETONES (URINE) Negative Negative [facility] UROBILINOGEN <1.1 eu/dL <1.1 eu/dL [facility] BILIRUBIN (URINE) Negative Negative [facility] BLOOD/HGB Negative Negative [facility] MUCOUS Present(A) None [facility] RED BLOOD CELLS <1 0 - 5 NA [facility] SQUAMOUS EPITHELIUM 5 0 - 5 NA [facility] WHITE BLOOD CELLS 6(H) 0 - 5 NA [facility] GLUCOSE (URINE) Negative Negative [facility] Comment: Urine received without preservative. Delays in transport may affect results. Interpret with caution. A clinical correlation is recommended. PERFORMED AT [place] [address],[place] [address] The copy-to physician of this order is FRIEDA Anand ; JUN MCCLENDON The ordering physician of this order is JUN Carlisle 01/28/2025 2:17 PM EDT 01/28/2025 8:02 PM EDT us Frieda Wray DO LAB URINE ORDERABLES Final Resul t [facility] documented in this encounter Visit Diagnoses Not on filedocumented in this encounter Care Teams Rug Dry Room Attendant Relationship Specialty Start Date End Date Yuliana Cortez MD PCP - General Family Medicine 06/13/23 Deja Burnett DO [address] [place] [address] Referring Physician Neurology 10/24/24 documented as of this encounter
--- OUTSIDE RECORDS SUMMARY | 2025-03-12 10:39 | XMS_ITS | Clinical Summary ---
Author Organization [employer] tem Address [facility] [id number] [address] [place] [address] Care Team Providers Care Surgical Nurse Practitioner Name Role Phone Unavailable Primary Care Provider Unavailabl e Allergies Active Allergy Reactions Criticality Noted Date Comments Duloxetine 12/24/2024 Metformin 12/24/2024 Penicillins 12/24/2024 Serotonin Shortness Of Breath High 06/07/2023 Medications omeprazole (PriLOSEC OTC) 20 mg EC tablet Take 2 tablets (40 mg total) by mouth 2 (two) times daily at 0800 and 1500. Active atorvastatin (LIPITOR) 20 mg tablet Active acetaminophen (TYLENOL ARTHRITIS) 650 mg 8 hr tablet Take 1 tablet (650 mg total) by mouth every 8 (eight) hours as needed for pain. Active metoprolol tartrate (LOPRESSOR) 50 mg tablet Take 1 tablet (50 mg total) by mouth in the morning. Active levothyroxine (SYNTHROID, LEVOTHROID) 75 MCG tablet Take 1 tablet (75 mcg total) by mouth in the morning. Active magnesium oxide 400 mg magnesium capsule daily. Active cholecalciferol , vitamin D3, 2,000 units tablet Take 1 tablet (2,000 Units total) by mouth in the morning. 06/18/2024 Active ferrous sulfate 325 (65 FE) mg EC tablet Take 1 tablet (325 mg total) by mouth. Active mirabegron (MYRBETRIQ) 50 mg tablet extended release 24 hr Take 1 tablet (50 mg total) by mouth in the morning for 180 days. 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 2021 PTTD (posterior tibial tendon dysfunction) 12/07 Status post left foot surgery 12/07/2021 Non-seasonal allergic rhinitis Hyperlipidemia Encounters Date Type Department Care Team Description 02/20/2025 Orders Only [facility] [address] [place] [address] Carrie Sharma CMA Unprotected sexual intercourse 02/03/2025 Orders Only [facility] [address] [facility] [place] [address] Carrie Sharma CMA 01/28/2025 2:15 PM EDT Office Visit [facility] [address] [place] [address] Janel Lawson MD Urge incontinence of urine (Primary Dx); Nocturnal enuresis; Unprotected sexual intercourse; OAB (overactive bladder) 01/28/2025 Travel 12/24/2024 Abstract [facility] [address] [place] [address] Janel Lawson MD from Last 3 Months Family History Medical History Relation Name Comments Hypertension Daughter Lupus Daughter Diabetes Father Breast cancer Maternal Grandmother Bone cancer Mother Hypertension Mother Diabetes Paternal Grandfather Diabetes Paternal Grandmother Hypertension Son Relation Name Status Comments Brother x2 Alive Daughter Alive Father Maternal Grandmother Mother Paternal Grandfather Paternal Grandmother Sister Alive Son Alive Social History Tobacco Use Types Packs/Day Years Used Date Smoking Tobacco: Former Smokeless Tobacco: Never Tobacco Cessation:Counseling Given: Not Answered Alcohol Use Standard Drinks/Week Comments Not Currently 0 (1 standard drink = 0.6 oz pur e alcohol) Childcare Answer Date Recorded Childcare Unknown 03/12/2019 Employment Answer Date Recorded Employment Unknown 03/12/2019 Hunger Screening Answer Date Recorded Within the past 12 months we worried whether our food would run out before we got money to buy more. Never True 01/28/2025 Within the past 12 months th e food we bought just didn't last and we didn't have money to get more. Never True 01/28/2025 Purpose - Life Answer Date Recorded Purpose and direction in life Unknown Comments No Sex and Gender Information Value Date Recorded Sex Assigned at Not on file Legal Sex Female 11:39 AM EDT Gender Identity Not on file Sexual Orientation Not on file Last Filed Vital Signs Vital Sign Reading Time Taken Comments Blood Pressure 143/93 01/28/2025 1:54 PM EDT Pulse 82 01/28/2025 1:54 PM EDT Temperature 36.8 C (98.3 F) 11/24/2021 5:11 PM EST Respiratory Rate 16 11/24/2021 5:11 PM EST Oxygen Saturation 93% 11/24/2021 5:11 PM EST Inhaled Oxygen Concentration - - Weight 127.9 kg (282 lb) 01/28/2025 1:54 PM EDT Height 170.2 cm (5' 7 ) 01/28/2025 1:54 PM EDT Body Mass Index 44.17 01/28/2025 1:54 PM EDT Plan of Treatment Upcoming Encounters Date Type Department Care Team (Late st Contact Info) Description 04/29/2025 2:15 PM EDT Office Visit [facility] [address] [place] [address] Janel Lawson MD [address] [place] [address] Health Maintenance Due Date Last Done Comments Depression Screening 1974 Adult BMI Follow Up Plan 1980 Zoster (Shingles) Vaccine (1 of 2) 2012 Influenza Vaccine 06/01/2025 08/16/2024, , 08/31/2022, Additional history exists Adult BMI Screening 01/28/2026 01/28/2025 Tobacco Screening 01/30/2026 01/30/2025 Pap Smear 12/02/2027 12/01/2024 DTaP,Tdap and Td Vaccines (2 - Td or Tdap) 12/03/2034 12/03/2024 COVID-19 Vaccine Completed 08/16/2024, , 08/31/2022, Additional history exists Medical Devices Not on file Procedures Procedure Name Priority Date/Time Associated Diagnosis Comments CHLAMYDIA/GC BY PCR MAGALIS SWAB Routine 01/28/2025 2:51 PM EDT Unprotected sexual intercourse VAGINITIS PANEL PCR Routine 01/28/2025 2 :51 PM EDT Unprotected sexual intercourse URINALYSIS Routine 01/28/2025 2:17 PM EDT Urge incontinence of urine URINE CULTURE Routine 01/28/2025 2:17 PM EDT Urge incontinence of urine POCT URINALYSIS DIPSTICK ONLY Routine 01/28/2025 2:16 PM EDT Urge incontinence of urine MEASURE POST VOID RESIDUAL Routine 01/28/2025 Urge incontinence of urine from Last 3 Months Results * Chlamydia/GC by PCR Magalis Swab (01/28/2025 2:51 PM EDT) CHLAMYDIA DNA(PCR) Negative Negative 01/29/2025 11:55 AM EDT [facility] Comment:Chlamydia trachomati s not detected by nucleic acid amplification. This does not exclude the possibility of infection because results are dependent on adequate specimen collection. GONORRHOEAE DNA(PCR) Negative Negative 01/29/2025 11:55 AM EDT [facility] Comment:Neisseria gonorrhoea e not detected by nucleic acid amplification. This does not exclude the possibility of infection because results are dependent on adequate specimen collection. Swab Endocervical structure / Unknown 01/28/2025 2:51 PM EDT 01/28/2025 2:51 PM EDT us Janel Lawson MD MICROBIOLOGY - GENERAL ORDERA BLES Final Result [facility] [address] [place] [address], [place] [phone] * Vaginitis Panel PCR (01/28/2025 2:51 PM EDT) BACT. VAGINOSIS DNA Not Detected Not Detected 01/29/2025 1:32 AM EDT [facility] Comment:Qualitative results are reported based on detection and quantitation of targeted organism markers which include: Lactobacillus spp. (L. crispatus and L. jensenii), Gardnerella vaginalis, Atopobium vaginae, Bacterial Vaginosis Associated Bacteria-2 (BVAB-2) and Megasphaera-1. BRI SPECIES DNA Not Detected Not Detected 01/29/2025 1:32 AM EDT [facility] Comment:Bri species not detected include: C. albicans, C. tropicalis, C. parapsilosis or C. dubliniensis. BRI KRUSEI DNA Not Detected Not Detected 01/29/2025 1:32 AM EDT [facility] Comment:No Bri krusei de tected. BRI GLABRATA DNA Not Detected Not Detected 01/29/2025 1:32 AM EDT [facility] Comment:No Bri glabrata detected. TRICHOMONAS VAG DNA Not Detected Not Detected 01/29/2025 1:32 AM EDT [facility] Comment: No Trichomonas vaginalis detected. BD MAX Vaginal Panel has not been evaluated for patients under 18 years old. Results for these patients should be reviewed and assessed in accordance with clinical presentation to determine patient diagnosis. Swab Vaginal structure / Unknown 01/28/2025 2:51 PM EDT 01/28/2025 2:51 PM EDT Janel Lawson MD MICROBIOLOGY - GENERAL ORDERA BLES Final Result [facility] [address] [place] [address], * (ABNORMAL) Urinalysis (01/28/2025 2:17 PM EDT) COLOR Yellow Yellow 01/28/2025 8:28 PM EDT [facility] TURBIDITY Clear Clear 01/28/2025 8:28 PM EDT [facility] SPECIFIC GRAVITY 1.021 1.003 - 1.035 01/28/2025 8:28 PM EDT [facility] NITRITE Negative Negative 01/28/2025 8:28 PM EDT [facility] PH,URINE 6.0 5.0 - 8.5 01/28/2025 8:28 PM EDT [facility] LEUKOCYTE ESTERASE Large(A) Negative 01/28/2025 8:28 PM EDT [facility] PROTEIN Negative Negative 01/28/2025 8:28 PM EDT [facility] KETONES (URINE) Negative Negative 8:28 PM EDT [facility] UROBILINOGEN <1.1 eu/dL <1.1 eu/dL 01/28/2025 8:28 PM EDT [facility] BILIRUBIN (URINE) Negative Negative 01/28/2025 8:28 PM EDT [facility] BLOOD/HGB Negative Negative 01/28/2025 8:28 PM EDT [facility] MUCOUS Present(A) None 01/28/2025 8:28 PM EDT [facility] R.B.CELLS <1 0 - 5 01/28/2025 8:28 PM EDT [facility] SQUAMOUS EPITHELIUM 5 0 - 5 01/28/2025 8:28 PM EDT [facility] W.B.CELLS 6(H) 0 - 5 01/28/2025 8:28 PM EDT [facility] GLUCOSE (URINE) Negative Negative 8:28 PM EDT [facility] Urine Urine specimen collection, clean catch / Unknown 01/28/2025 2:17 PM EDT 01/28/2025 2:17 PM EDT Narrative [facility] - 01/28/2025 8:28 PM EDT Urine received without preservative. Delays in transport may affect results. Interpret with caution. A clinical correlation is recommended. us Janel Lawson MD URINE ORDERABLES Final Result Performing Organization Address City/[facility]/ZIP Co de Phone Number [facility] [address] [place] [address], [place] [phone] * Urine Culture (01/28/2025 2:17 PM EDT) CULTURE RESULTS 10-50,000 ORGANISMS/mL NORMAL UROGENITAL ELODIA 01/29/2025 10:12 PM EDT [facility] Urine Urine specimen collection, clean catch / Unknown 01/28/2025 2:17 PM EDT 01/28/2025 2:17 PM EDT us Janel Lawson MD MICROBIOLOGY - GENERAL ORDERA BLES Final Result Performing Organization Address [facility] Co de Phone Number [facility] [address] [place] [address], [place] [phone] * POCT urinalysis dipstick only (01/28/2025 2:16 PM EDT) External Poct Urine Color yellow MANUALLY TRANSCRIBED RESULTS External Poct Urine Appearance clear MANUALLY TRANSCRIBED RESULTS External Poct Urine Glucose Negative MANUALLY TRANSCRIBED RESULTS External Poct Urine Ketones Negative MANUALLY TRANSCRIBED RESULTS External Poct Urine Blood Negative MANUALLY TRANSCRIBED RESULTS External Poct Urine Ph 6 MANUALLY TRANSCRIBED RESULTS External Poct Urine Nitrite Negative MANUALLY TRANSCRIBED RESULTS External Poct Urine Leukocyte Esterase Moderate MANUALLY TRANSCRIBED RESULTS Urine 01/28/2025 2:16 PM EDT us Janel Lawson MD POINT OF CARE TEST ORDERABLES Final Result Performing Organization Address City/[facility]/ZIP Co de Phone Number MANUALLY TRANSCRIBED RESULTS * Measure post void residual (01/28/2025) Volume 177mL MANUALLY TRANSCRIBED RESULTS 01/28/2025 us Janel Lawson MD NURSING ASSESSMENTS Final Res ult MANUALLY TRANSCRIBED RESULTS from Last 3 Months Insurance [employer] MEDICARE
--- OUTSIDE RECORDS SUMMARY | 2025-03-12 10:39 | XMS_ITS | Encounter Summary ---
Author Organization [facility] Address [address] [place] [address] Care Team Providers Care Senior Contracts Manager Name Role Phone Yuliana Cortez MD Primary Care Provider [phone] Deja Burnett DO Unavailable [phone] Encounter Details Date Type Department Care Team (Late Contact Info) Description 01/30/2025 Abstract [facility] [address] [place] [address] Uday Wray [address] Smita Hernandez, [facility] Social History Tobacco Use Types Packs/Day Years [...] 12/03/2025 9:00 AM EST Office Visit [facility] [address] [place] [address] Uday Wray DO [facility] [place] [id number] documented as of this encounter Visit Diagnoses Not on filedocumented in this encounter Care Teams Senior Contracts Manager Relationship Specialty Start Date End Date Yuliana Cortez MD PCP - General Family Medicine 06/13/23 Deja Burnett DO [address] [place] [address] Referring Physician Neurology 10/24/24 documented as of this encounter
--- OUTSIDE RECORDS SUMMARY | 2025-03-12 10:39 | XMS_ITS | Clinical Summary ---
Author Organization [facility] Address [address] [place] [address] Care Team Providers Care Country Sales Manager Name Role Phone Yuliana Cortez MD Primary Care Provider [phone] Allergies Active Allergy Reactions Criticality Noted Date Comments Duloxetine 09/05/2022 Metformin 09/05/2022 Penicillins 09/05/2022 Medications aspirin 325 mg tablet in the morning. Acti ve atorvastatin (Lipitor) 20 mg tablet atorvastatin 20 mg tablet TAKE 1 TABLET BY MOUTH DAILY Active baclofen (Lioresal) 10 mg tablet baclofen 10 mg tablet TAKE 1 TABLET BY MOUTH TWICE DAILY NEEDED Active diclofenac (Voltaren) 75 mg EC tablet diclofenac sodium 75 mg tablet,delayed release TAKE 1 TABLET BY MOUTH TWICE DAILY Active HYDROcodone-jose luis taminophen (Atco) 5-325 mg tablet hydrocodone 5 mg-acetaminophen 325 mg tablet TAKE 1 TABLET BY MOUTH EVERY 4 TO 6 HOURS NEEDED FOR PAIN (Max OF EIGHT TABLETS in 24 HOURS) Active linezolid (Zyvox) 600 mg tablet linezolid 600 mg tablet TAKE 1 TABLET BY MOUTH TWICE DAILY Active magnesium oxide 400 mg magnesium capsule 1 capsule in the morning. Active omeprazole OTC (PriLOSEC OTC) 20 mg EC tablet in the morning. Active oxyCODONE (Roxicodone) 5 mg immediate release tablet Take 5 mg by mouth every 6 (six) hours if needed. Active pantoprazole (ProtoNix) 40 mg EC tablet pantoprazole 40 mg tablet,delayed release TAKE 1 TABLET BY MOUTH DAILY Active levothyroxine (Synthroid, Levoxyl) 50 mcg tablet TAKE 1 TABLET BY MOUTH IN THE MORNING ON AN EMPTY STOMACH 3 Active tirzepatide (Mounjaro) 2.5 mg/0.5 mL pen injector as directed Subcutaneous Active metoprolol succinate XL (Toprol-XL) 25 mg 24 hr tabletIndicatio ns:Tachycardia, Palpitations TAKE 1 TABLET BY MOUTH ONCE DAILY 90 tablet 3 4 Active cholecalciferol (Vitamin D-3) 50 MCG (2000 UT) tablet Take 1 tablet by mouth in the morning. 4 Active levothyroxine (Synthroid, Levoxyl) 75 mcg tablet Take 75 mcg by mouth before breakfast. Active metoprolol succinate XL (Toprol-XL) 50 mg 24 hr tabletIndicatio ns:Palpitations Take 1 tablet (50 mg) by mouth in the morning. Do not crush or chew. This is an increase 90 tablet 3 5 10/24/19 26 Active Active Problems Problem Noted Date Diagnosed Date Abnormal bruising 07/25/2024 Aftercare following joint replacement 07/25/2024 Arrhythmia 07/25/2024 Arthritis of foot 07/25/2024 Arthritis of lumbosacral spine 07/25/2024 Bronchitis 07/25/2024 Change in voice 07/25/2024 Chest congestion 07/25/2024 Cough 07/25/2024 Depression 07/25/2024 Essential (primary) hypertension 07/25/2024 Family history of von Willebrand disease 024 Fatty liver 07/25/2024 Pre-diabetes 07/25/2024 Arthritis of right hip 07/25/2024 Sinusitis, acute maxillary 07/25/2024 GERD (gastroesophageal reflux disease) 3 07/16/2023 BMI 45.0-49.9, adult 07/16/2023 07/16/2023 Assessment & Plan (07/16/2023 10:19 AM EDT): She is working on weight loss with her PCP and care team coordinator scheduler. Chronic antral gastritis 07/16/2023 023 Hallux rigidus, left foot 07/16/20232022 Hallux valgus (acquired), left foot 07/16/2023 07/16/2023 History of rectal bleeding 07/16/202307/16 Other hammer toe(s) (acquired), left foot 202207/16/2023 Other specified joint disorders, left ankle and foot 07/16/2023 07/16/2023 Postmenopausal 07/16/2023 07/16/2023 Pseudarthrosis after fusion or arthrodesis 07/1607/16/2023 Regurgitation of food 07/16/2023 07/16/2023 Screening for malignant neoplasm of colon 202207/16/2023 Orthostasis 07/16/2023 Assessment & Plan (07/16/2023 10:20 AM EDT): She admits intermittent orthostasis when she is bending over working in the yard and upon standing she gets lightheaded and dizzy. Denies syncope and admits that she is chronically dehydrated and does not drink enough. Therefore recommended at least 2 L of water per day, can intermittently have electrolyte replacement drinks like Gatorade or Powerade or Pedialyte she voiced understanding Non-seasonal allergic rhinitis 09/05/2022 Morbid obesity 12/09/2021 Fibromyalgia 12/08/2021 Hyperlipidemia 12/08/2021 Assessment & Plan (07/16/2023 10:19 AM EDT): Continue atorvastatin 20 mg Liver function normal, cholesterol and LDL levels well controlled in light she does not have CAD. 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 PTTD (posterior tibial tendon dysfunction) 12/07 Status post left foot surgery 12/07/2021 Unsteady gait 12/07/2021 Primary osteoarthritis, left ankle and foot 030 03/2022 Difficulty in walking, not elsewhere classified 11/24/2021 Muscle weakness (generalized) 11/24/2021 Other fatigue 11/24/2021 Other problems related to life management diffic ulty 11/24/2021 Constipation 11/23/2021 Encounter for other orthopedic aftercare 022 Hypomagnesemia 11/23/2021 Spinal stenosis, site unspecified 11/23/2021 Spondylolysis, cervical region 11/23/2021 Acquired trigger finger 04/21/2020 Pain in right hand 01/29/2018 07/16/2023 Pain in wrist 01/29/2018 07/16/2023 Family History Medical History Relation Name Comments Diabetes Father Heart failure Father Diabetes Paternal Grandfather Diabetes Paternal Grandmother Relation Name Status Comments Father Paternal Grandfather Paternal Grandmother Social History Tobacco Use Types Packs/Day Years Used Date Smoking Tobacco: Former Cigarettes Smokeless Tobacco: Never Tobacco Cessation:Counseling Given: Not Answered [place] Safety & Environment Answer Date Rec orded Fear of Current or Ex-Partner Not on file Emotionally Abused Not on file 11/22/2023 Physically Abused Not on file 11/22/2023 Sexually Abused Not on file 11/22/2023 Physically or Sexually Abused Not on file Comments Unknown Sex and Gender Information Value Date Recorded Sex Assigned at Female 07/16/2023 9:16 PM EDT Legal Sex Female 12:04 AM EDT Gender Identity Female 07/16/2023 9:16 PM EDT Sexual Orientation Heterosexual or Straight 07/01 9:16 PM EDT Last Filed Vital Signs Vital Sign Reading Time Taken Comments Blood Pressure 134/90 10/24/2024 10:23 AM EST Pulse 85 10/24/2024 10:23 AM EST Temperature - - Respiratory Rate - - Oxygen Saturation 94% 10/24/2024 10:23 AM EST Inhaled Oxygen Concentration - - Weight 129 kg (285 lb) 10/24/2024 10:23 AM EST Height 170.2 cm (5' 7 ) 10/24/2024 10:23 AM EST Body Mass Index 44.64 10/24/2024 10:23 AM EST Plan of Treatment Health Maintenance Due Date Last Done Comments CT Colonography 1962 Colonoscopy 1962 Colorectal Cancer Screening 1962 FIT-DNA 1962 FIT 1962 FOBT 1962 Medicare Annual Wellness (AWV) 1962 Sigmoidoscopy 1962 Depression Screening 1974 Adult Tetanus 1984 HPV/Cotest 1992 Mammogram 2002 Zoster Vaccines (1 of 2) 2012 Cervical Cancer Screening 05/31/2024 Pap Smear 05/31/2024 05/31/2021 COVID-19 Vaccine ( season) 2024 08/16/2024, 09/28/2023, 08/31/2022, Additional history exists Pneumococcal Vaccine: Pediatrics (0 to 5 Years) and At-Risk Patients (6 to 64 Years) Aged Out 06/25/2020, 06/23/2020 No longer eligibl e based on patient's age to complete this topic Influenza Vaccine Completed 08/16/2024, , 08/31/2022, Additional history exists HIB Vaccines Aged Out No longer eligi ble based on patient's age to complete this topic HPV Vaccines Aged Out No longer eligi ble based on patient's age to complete this topic IPV Vaccines Aged Out No longer eligi ble based on patient's age to complete this topic Meningococcal B Vaccine Aged Out No l onger eligible based on patient's age to complete this topic Meningococcal Vaccine Aged Out No yuli sg eligible based on patient's age to complete this topic Rotavirus Vaccines Aged Out No longer eligible based on patient's age to complete this topic Insurance A[employer]NA MEDICARE ADVANTAGE Care Teams Country Sales Manager Relationship Specialty Start Date End Date Yuliana Cortez MD [address] [place] [address] #A PCP - General 09/05/22
--- OUTSIDE RECORDS SUMMARY | 2025-03-12 10:39 | XMS_ITS | Encounter Summary ---
Author Organization [employer] tem Address [id number] [address] [place] [address] Care Team Providers Care Soda Room Operator Name Role Phone Unavailable Primary Care Provider Unavailabl e Encounter Details Date Type Department Care Team (Late Contact Info) Description 02/20/2025 Orders Only [facility] [address] [place] [address] Carrie Sharma CMA Unprotected sexual intercourse Social History Tobacco Use Types Packs/Day Years Used Date Smoking Tobacco: Former Smokeless Tobacco: Never Alcohol Use Standard Drinks/Week Comments Not Currently [...] Department Care Team (Late Contact Info) Description 04/29/2025 2:15 PM EDT Office Visit [facility] [address] [place] [address] Janel Lawson MD [address] [address] documented as of this encounter Visit Diagnoses Diagnosis Unprotected sexual intercourse Problems related to high-risk sexual behavior documented in this encounter
--- OUTSIDE RECORDS SUMMARY | 2025-03-12 10:39 | XMS_ITS | Referral Summary ---
Author Organization [facility] Address [address] [place] [address] Care Team Providers Care Health Care Facilities Inspector Name Role Phone Yuliana Cortez MD Primary Care Provider [phone] Allergies Active Allergy Reactions Criticality Noted Date [...] MOUTH TWICE DAILY Active HYDROcodone-jose luis taminophen (Graff) 5-325 mg tablet hydrocodone 5 mg-acetaminophen 325 [...] on weight loss with her PCP and bit setter. Chronic antral gastritis 07/16/2023 023 Hallux rigidus, [...] 12/07/2021 Primary osteoarthritis, left ankle and foot 0 03/2022 Difficulty in walking, not elsewhere classified 11/24/2021 Muscle weakness (generalized) 11/24/2021 Other fatigue 11/24/2021 Other problems related to life management diffic ulty 11/24/2021 Constipation 11/23/2021 Encounter for other orthopedic aftercare 022 Hypomagnesemia 11/23/2021 Spinal stenosis, site unspecified 11/23/2021 Spondylolysis, cervical region 11/23/2021 Acquired trigger finger 04/21/2020 Pain in right hand 01/29/2018 07/16/2023 Pain in wrist 01/29/2018 07/16/2023 Social History Tobacco Use Types Packs/Day Years [...] 10/24/2024 10:23 AM EST Plan of Treatment Not on file Insurance [employer] MEDICARE ADVANTAGE Care Teams Health Care Facilities Inspector Relationship Specialty Start Date End Date Yuliana Cortez MD [address] [facility] #A PCP - General 09/05/22
--- OUTSIDE RECORDS SUMMARY | 2025-03-12 10:39 | XMS_ITS | Encounter Summary ---
Author Organization [facility] Address [address] [place] [address] Care Team Providers Care Concrete Paving Machine Operator Name Role Phone Yuliana Cortez MD Primary Care Provider [phone] Deja Burnett DO Unavailable [phone] Encounter Details Date Type Department Care Team (Late st Contact Info) Description 12/23/2024 Abstract [facility] [address] [place] [address] Uday Wray [address] Smita [place], [facility] Social History Tobacco Use Types Packs/Day Years [...] Care Team (Late st Contact Info) Description 12/03/2025 9:00 AM EST Office Visit [facility] [address] [place] [address] Uday Wray DO [facility] [place] [id number] documented as of this encounter Visit Diagnoses Not on filedocumented in this encounter Care Teams Concrete Paving Machine Operator Relationship Specialty Start Date End Date Yuliana Cortez MD PCP - General Family Medicine 06/13/23 Deja Burnett DO [address] [place] [address] Referring Physician Neurology 10/24/24 documented as of this encounter
--- OUTSIDE RECORDS SUMMARY | 2025-03-12 10:39 | XMS_ITS | Clinical Summary ---
Author Organization [facility] Address [address] [place] [address] Care Team Providers Care Bowling Alley Refinisher Name Role Phone Yuliana Cortez MD Primary Care Provider [phone] Deja Burnett DO Unavailable [phone] Allergies Active Allergy Reactions Criticality Noted Date Comments Metformin Hcl 06/07/2023 Penicillin G Sodium 06/07/2023 Serotonin Reuptake Inhibitor s (Ssris) Shortness of breath High 06/07/2023 Medications levothyroxine (Synthroid, Levoxyl) 50 MCG tablet Take 75 mcg by mouth in the morning. Take before meals. 3 Active metoprolol succinate XL (Toprol-XL) 25 MG 24 hr tablet Take 2 tablets by mouth Daily 3 Active atorvastatin (Lipitor) 20 MG tablet Take 1 tablet by mouth in the morning. Active pantoprazole (ProtoNix) 40 MG EC tablet Take 1 tablet by mouth in the morning. Active EXTRA STRENGTH ACETAMINOPHEN PO Take 2 each by mouth in the morning. Active Tirzepatide (Mounjaro) 2.5 MG/0.5ML solution pen-injector Inject 2.5 mg under the skin 1 (one) time per week. Active ferrous sulfate 325 (65 Fe) MG EC tablet Take by mouth Daily with meals Do not crush, chew, or split. Active loratadine (Claritin Reditabs) 10 MG disintegrating tablet Take 10 mg by mouth Daily Active Active Problems Problem Noted Date Diagnosed Date Cervical cyst 12/01/2024 Encounters Date Type Department Care Team Description 01/30/[address] [facility] [address] [place] [address] [place] [address] Frieda Wray, 01/28/2025 External Result Encounter [facility] External Department Unsolicited Frieda Wray, DO 12/23/2024 Abstract [facility] [place] [address] [place] [address] Frieda Wray, 12/15/2024 Orders Only [facility] [address] [place] [id number] Cora Fitzgerald MA from Last 3 Months Family History Medical History Relation Name Comments Diabetes Father Heart disease Father Hypertension Father Cancer Mother Hypertension Mother Diabetes Paternal Grandfather Relation Name Status Comments Father Mother Alive Paternal Grandfather Social History Tobacco Use Types Packs/Day Years Used Date Smoking Tobacco: Former Cigarettes Tobacco Cessation:Counseling Given: Not Answered Alcohol Use Standard Drinks/Week Comments Never 0 (1 standard drink = 0.6 oz pur e alcohol) Caffeine: none Comments Unknown Sex and Gender Information Value Date Recorded Sex Assigned at Not on file Legal Sex Female 7:37 PM EDT Gender Identity Not on file Sexual Orientation Not on file Last Filed Vital Signs Vital Sign Reading Time Taken Comments Blood Pressure 128/88 12/01/2024 11:21 AM EST Pulse - - Temperature - - Respiratory Rate - - Oxygen Saturation - - Inhaled Oxygen Concentration - - Weight 132 kg (290 lb) 12/01/2024 11:21 AM EST Height 170.2 cm (5' 7 ) 06/13/2023 4:42 PM EDT Body Mass Index 45.42 06/13/2023 4:42 PM EDT Plan of Treatment Upcoming Encounters Date Type Department Care Team (Late st Contact Info) Description 12/03/2025 9:00 AM EST Office Visit [facility] [address] [place] [address] Frieda Wray, [address] [place], [place] [id number] Health Maintenance Due Date Last Done Comments CT Colonography 1960 Colonoscopy 1960 Colorectal Cancer Screening 1962 FIT-DNA 1962 FIT 1962 FOBT 1960 Sigmoidoscopy 1960 Mammogram 11/14/2025 11/14/2024, 11/05/2023, 11/2022 Cervical Cancer Screening 12/01/2029 HPV/Cotest 12/01/2029 07/10/2023 Pap Smear 12/01/2029 12/01/2024, 05/31/2021 Influenza Vaccine Completed 08/16/2024, , 08/31/2022, Additional history exists Procedures Procedure Name Priority Date/Time Associated Diagnosis Comments CHLAMYDIA/GC BY PCR ([facility]) Routine 01/28/2025 2:51 PM EDT BRI, DNA, AMPLIFIED PROBE Routine 01/28/2025 2:51 PM EDT URINALYSIS, MANUAL ONLY Routine 01/28/2025 2:17 PM EDT CULTURE, URINE, ROUTINE Routine 01/28/2025 2:17 PM EDT PAP SMEAR Routine 12/01/2024 12:00 AM EST MM TOMOSYNTHESIS SCREENING BI 11/14/2024 10:46 AM EST THINPREP PAP AND HPV MRNA E6/E7 W/RFL HPV 16,18/45 Routine 07/10/2023 4:38 PM EDT Well woman exam with routine gynecological exam from Last 3 Months or Most Recently Relevant to Health Maintenance Results * CHLAMYDIA/GC BY PCR ([facility]) (01/28/2025 2:51 PM EDT) CHLAMYDIA/GC BY PCR LAURIE SWAB SEE RESULTS [...] collection. REPORT STATUS FINAL 01/29/2025 PERFORMED AT [address],[place] [address] The copy-to physician of this order is FRIEDA Anand ; JUN MCCLENDON The ordering physician of this order is JUN Carlisle 01/28/2025 2:51 PM EDT 01/28/2025 8:03 PM EDT us Frieda Wray DO LAB BLOOD ORDERABLES Final Resul t [facility] * Bri, DNA, amplified probe (01/28/2025 2:51 PM EDT) [facility] VAGINITIS PANEL PCR SEE RESULTS BELOW Not [...] diagnosis. REPORT STATUS FINAL 01/29/2025 PER[address],[place] [address] The copy-to physician of this order is FRIEDA Anand ; JUN MCCLENDON The ordering physician of this order is JUN Carlisle 01/28/2025 2:51 PM EDT 01/28/2025 8:03 PM EDT us Frieda Wray DO LAB BODY FLUIDS AND STOOLS ORDER [place] Final Result [facility] * (ABNORMAL) Urinalysis, manual only (01/28/2025 [...] A clinical correlation is recommended. PERFORMED [address], [place] [address] The copy-to physician of this order is FRIEDA Anand ; JUN MCCLENDON The ordering physician of this order is JUN Carlisle 01/28/2025 2:17 PM EDT 01/28/2025 8:02 PM EDT us Frieda Wray DO LAB URINE ORDERABLES Final Resul t [facility] * Urine culture (01/28/2025 2:17 PM EDT) Urine Culture SEE RESULTS BELOW [facility] Comment: SPECIMEN SOURCE Urine Urine, Clean Catch Midstream CULTURE RESULTS 10-50,000 ORGANISMS/mL NORMAL UROGENITAL [place] REPORT STATUS FINAL 01/29/2025 PERFORMED [address], [place] [address] The copy-to physician of this order is FRIEDA Anand ; JUN MCCLENDON The ordering physician of this order is JUN Carlisle 01/28/2025 2:17 PM EDT 01/28/2025 8:02 PM EDT us Frieda Wray DO LAB MICROBIOLOGY - GENERAL ORDER [place] Final Result [facility] * Pap Smear (12/01/2024 12:00 AM EST) Swab Cervical swab / Unknown us Frieda Wray DO LAB CYTOLOGY ORDERABLES Final Re sult EXTERNAL LAB * MM TOMOSYNTHESIS SCREENING BI (11/14/2024 10:46 AM EST) Anatomical Region Laterality Modality Other 11/14/2024 10:4 6 AM EST Narrative 11/14/2024 10:48 [place] [address] Mammography Report Signed Patient: NAVARRO SMITH MR#: [id number] : 1960 Acct:[id number] Age/Sex: 64 / F ADM Date: 11/11/24 Loc: MAMMO Attending Dr: Frieda Wray D.O. Ordering Physician: Frieda Wray D.O. Results: Date of Service: 11/11/24 Follow Up: Procedure(s): MM tomosynthesis screening BI Accession Number(s): [id number] cc: Yuliana Cortez M.D.; Frieda Wray D.O. Patient Name: NAVARRO SMITH MR#: [id number] : 1960 Exam Date: 11/11/2024 Ordering Doctor: DR Frieda Wray . RADIOLOGY REPORT PROCEDURE: MM TOMOSYNTHESIS SCREENING BI COMPARISON: MM TOMOSYNTHESIS SCREENING BI, 11/05/2023. MG MAMM SCREEN 3D BONNIE CAD, 11/03/2022. MG MAMM SCREEN 3D BONNIE CAD, 10/31/2021. MG MAMM BONNIE SCRN W CAD DIG, 06/12/2013. INDICATIONS: Screening Calculator Name NCI Breast Cancer Risk Assessment Tool 5 Year Breast Cancer Risk 1.50% Lifetime Breast Cancer Risk 7.00% Personal Breast Cancer No Personal Ovarian Cancer No Treatments None Family Cancers Grandmother-maternal with uterine cancer at age 50. LOCATION: [facility] BREAST COMPOSITION: There are scattered areas of fibroglandular density. FINDINGS: DIAGNOSTIC CATEGORY 2--BENIGN FINDING: RIGHT BREAST: No significant suspicious finding. Scattered benign-appearing lymph nodes are present. No significant change has occurred. LEFT BREAST: No significant suspicious finding. Scattered benign-appearing lymph nodes are present. No significant change has occurred. RECOMMENDATIONS: ROUTINE MAMMOGRAM AND CLINICAL EVALUATION IN 12 MONTHS. PLEASE NOTE: A NORMAL MAMMOGRAM DOES NOT EXCLUDE THE POSSIBILITY OF BREAST CANCER. A CLINICALLY SUSPICIOUS PALPABLE LUMP SHOULD BE BIOPSIED. Dictated by: Jace Armando M.D. on 11/14/2024 at 10:43 Approved by: Jace Armando M.D. on 11/14/2024 at 10:46 Dictated By: Jace Armando M.D. Signed By: 11/14/24 1048 DD/ 1046 TD/TT: Director Of Communications: Procedure Note Radiology, Radiologist, - 11/14/2024 [place] [address] Mammography Report Signed Patient: NAVARRO SMITH AMR#: [id number] : 1960cct:[id number] Age/Sex: 64 / FADM Date: 11/11/24 Loc: MAMMO Attending Dr: Frieda Wray D.O. Ordering Physician: Frieda Wray D.O.Results: Date of Service: 11/11/24Follow Up: Procedure(s): MM tomosynthesis screening BI Accession Number(s): [id number] cc: Yuliana Cortez M.D.; Frieda Wray D.O. Patient Name: NAVARRO SMITH MR#: [id number] : 1960 Exam Date: 11/11/2024 Ordering Doctor: DR Frieda Wray . RADIOLOGY REPORT PROCEDURE: MM TOMOSYNTHESIS SCREENING BI COMPARISON: MM TOMOSYNTHESIS SCREENING BI, 11/05/2023. MG MAMM [id number] BONNIE CAD, 11/03/2022. MG MAMM SCREEN 3D BONNIE CAD, 10/31/2021. MG MAMM BILSCRN W CAD DIG, 06/12/2013. INDICATIONS: Screening Calculator Name NCI Breast Cancer Risk Assessment Tool 5 Year Breast Cancer Risk 1.50% Lifetime Breast Cancer Risk 7.00% Personal Breast Cancer No Personal Ovarian Cancer No Treatments None Family Cancers Grandmother-maternal with uterine cancer at age 50. LOCATION: [facility] BREAST COMPOSITION: There are scattered areas of fibroglandulardensity. FINDINGS: DIAGNOSTIC CATEGORY 2--BENIGN FINDING: RIGHT BREAST: No significant suspicious finding. Scatteredbenign-appearing lymph nodes are present. No significant change has occurred. LEFT BREAST: No significant suspicious finding. Scatteredbenign-appearing lymph nodes are present. No significant change has occurred. RECOMMENDATIONS: ROUTINE MAMMOGRAM AND CLINICAL EVALUATION IN 12 MONTHS. PLEASE NOTE: A NORMAL MAMMOGRAM DOES NOT EXCLUDE THE POSSIBILITY OFBREAST CANCER. A CLINICALLY SUSPICIOUS PALPABLE LUMP SHOULD BE BIOPSIED. Dictated by: Jace Armando M.D. on 11/14/2024 at 10:43 Approved by: Jace Armando M.D. on 11/14/2024 at 10:46 Dictated By: Jace Armando M.D. Signed By:11/14/24 1048 DD/ 1046 TD/TT: Director Of Communications: us Frieda Wray DO [facility] Final Result * THINPREP PAP AND HPV MRNA E6/E7 W/RFL HPV 16,18/45 (07/10/2023 4:38 PM EDT) us Frieda Wray DO LAB BLOOD ORDERABLES Final Resul t EXTERNAL LAB from Last 3 Months or Most Recently Relevant to Health Maintenance Insurance [employer] MEDICARE ADVANTAGE Care Teams Bowling Alley Refinisher Relationship Specialty Start Date End Date Yuliana Cortez MD PCP - General Family Medicine 06/13/23 Deja Burnett DO [address] [place] [address] Referring Physician Neurology 10/24/24
--- OUTSIDE RECORDS SUMMARY | 2025-03-12 10:39 | XMS_ITS | Clinical Summary ---
Author Organization [facility] Address [address] [place] [address] Care Team Providers Care Editor Index Name Role Phone Unavailable Primary Care Provider Unavailabl e Allergies Active Allergy Reactions Criticality Noted Date Comments Duloxetine 09/05/2022 Duloxetine Hcl High 11/23/2021 Other Reaction(s): Vision impairment level Metformin Medium 11/23/2021 Other Reaction(s): Abdominal lump Penicillins Itching,Rash Medium 06/28/1970 Serotonin Reuptake Inhibitors (Ssris) Shortness Of Breath High 06/07/2023 Medications atorvastatin (LIPITOR) 20 MG tablet atorvastatin 20 mg tablet TAKE 1 TABLET BY MOUTH DAILY Active Cholecalciferol 50 MCG (1999) TABS Take 1 tablet by mouth daily 4 Active ferrous sulfate (FE TABS 325) 325 (65 Fe) MG EC tablet Take by mouth daily (with breakfast) Active levothyroxine (SYNTHROID) 75 MCG tablet Take 1 tablet by mouth every morning (before breakfast) Active loratadine (CLARITIN REDITABS) 10 MG dissolvable tablet Take 1 tablet by mouth daily Active Magnesium Oxide -Mg Supplement 400 MG CAPS 1 capsule Active metoprolol succinate (TOPROL XL) 50 MG extended release tablet TAKE 1 TABLET BY MOUTH IN THE MORNING; DO NOT CRUSH OR CHEW Active omeprazole (PRILOSEC) 40 MG delayed release capsule Take 1 capsule by mouth 2 times daily 5 Active Encounters Date Type Department Care Team Description 12/22/2024 2:00 PM EDT Office Visit [facility] Thor[facility] [address] [place] [address] [address] [place] [address] Paulino Hughes MD Paraesophageal hernia (Primary Dx) from Last 3 Months Social History Tobacco Use Types Packs/Day Years Used Date Smoking Tobacco: Former Cigarettes Smokeless Tobacco: Never Tobacco Cessation:Counseling Given: Not Answered Comments No Sex and Gender Information Value Date Recorded Sex Assigned at Female 11/28/2024 1:35 PM EST Legal Sex Female 8:33 AM EST Gender Identity Female 11/28/2024 1:35 PM EST Sexual Orientation Straight 11/28/2024 1: 35 PM EST Last Filed Vital Signs Vital Sign Reading Time Taken Comments Blood Pressure - - Pulse 78 12/22/2024 1:37 PM EDT Temperature 36.1 C (97 F) 12/22/2024 1:37 PM EDT Respiratory Rate - - Oxygen Saturation 98% 12/22/2024 1:37 PM EDT Inhaled Oxygen Concentration - - Weight 131.5 kg (290 lb) 12/22/2024 1:37 PM EDT Height 170.2 cm (5' 7 ) 12/22/2024 1:37 PM EDT Body Mass Index 45.42 12/22/2024 1:37 PM EDT Plan of Treatment Health Maintenance Due Date Last Done Comments Lipids 1972 Depression Screen 1974 HIV screen 1977 Hepatitis C screen 1980 Pap smear 1983 Cervical cancer screen 1992 HPV (without or with Pap) 1992 Diabetes screen 1997 Colonoscopy 2007 Colorectal Cancer Screen 2007 FIT/FOBT: Average risk 2007 Fecal-DNA (Cologuard): Average risk 2007 Sigmoidoscopy/CT colonography 2007 Shingles vaccine (1 of 2) 2012 Respiratory Syncytial Virus (RSV) or age 60 yrs+ (1 - Risk 60-74 years 1-dose series) 2022 Annual Wellness Visit (Medicare Advantage) 10/01/2024 Breast cancer screen 11/03/2024 11/03/2022 Flu vaccine (Season Ended) 05/01/202509/28, 08/31/2022, 11/20/2021, Additional history exists Pneumococcal 50+ years Vaccine (3 of 3 - PCV20 or PCV21) 06/25/2025 06/25/2020, 06/23/2020 DTaP/Tdap/Td vaccine (2 - Td or Tdap) 12/03/2034 12/03/2024 COVID-19 Vaccine Completed 08/16/2024, , 08/31/2022, Additional history exists Hepatitis A vaccine Aged Out No longe r eligible based on patient's age to complete this topic Hepatitis B vaccine Aged Out No longe r eligible based on patient's age to complete this topic Hib vaccine Aged Out No longer eligi ble based on patient's age to complete this topic Meningococcal (ACWY) vaccine Aged Out No longer eligible based on patient's age to complete this topic Meningococcal B vaccine Aged Out No l onger eligible based on patient's age to complete this topic Polio vaccine Aged Out No longer elig ible based on patient's age to complete this topic Insurance [employer] MEDICARE
--- OUTSIDE RECORDS SUMMARY | 2025-03-12 10:40 | XMS_ITS | Encounter Summary ---
Author Organization [facility] Address [address] [facility] [place] [address] Care Team Providers Care Kickboxing Instructor Name Role Phone Yuliana Cortez MD Primary Care Provider [phone] Deja Burnett DO Unavailable [phone] Encounter Details Date Type Department Care Team (Late Contact Info) Description 11/05/2023 Clinisync Result Encounter [facility] External Department Unsolicited Uday Wray DO [facility] Maria Teresa [place], [place] [address] Social History Tobacco Use Types Packs/Day Years [...] 12/03/2025 9:00 AM EST Office Visit [facility] OB [address] [place] [phone] Uday Wray DO [address] [place] [address] [place] [address] documented as of this encounter Procedures Procedure Name Priority Date/Time Associated Diagnosis Comments MM TOMOSYNTHESIS SCREENING BI 11/05/2023 11:56 AM EST documented in this encounter Results * MM TOMOSYNTHESIS SCREENING BI (11/05/2023 11:56 AM EST) Anatomical Region Laterality Modality Other 11/05/2023 11:5 6 AM EST Narrative 11/05/2023 11:57 AM EST [address] [address] Mammography Report Signed Patient: NICOL SMITH MR#: [id number] : 1960 Acct:[id number] Age/Sex: 63 / F ADM Date: 11/05/23 Loc: MAMMO Attending Dr: Uday Wray D.O. Ordering Physician: Uday Wray D.O. Results: Date of Service: 11/05/23 Follow Up: Procedure(s): MM tomosynthesis screening BI Accession Number(s): [id number] cc: Yuliana Cortez M.D.; Uday Wray D.O. Patient Name: NICOL SMITH MR#: [id number] : 1960 Exam Date: 11/05/2023 Ordering Doctor: DR Uday Wray . RADIOLOGY REPORT PROCEDURE: MM TOMOSYNTHESIS SCREENING BI COMPARISON: MG MAMM SCREEN 3D BONNIE CAD, 11/03/2022. MG MAMM SCREEN 3D BONNIE CAD, 10/31/2021. INDICATIONS: screening Calculator Name NCI Breast Cancer Risk Assessment Tool 5 Year Breast Cancer Risk 1.50% Lifetime Breast Cancer Risk 7.20% Personal Breast Cancer No Personal Ovarian Cancer No Treatments None Family Cancers Grandmother-maternal with uterine cancer at age 50. LOCATION: [facility] BREAST COMPOSITION: Scattered areas fibroglandular density. FINDINGS: DIAGNOSTIC CATEGORY 2--BENIGN FINDING. NO CHANGE FROM COMPARISON. Scattered benign-appearing lymph nodes are present. Scattered benign-appearing calcifications are present. RIGHT BREAST: No significant suspicious finding. LEFT BREAST: No significant suspicious finding. RECOMMENDATIONS: ROUTINE MAMMOGRAM AND CLINICAL EVALUATION IN 12 MONTHS. PLEASE NOTE: A NORMAL MAMMOGRAM DOES NOT EXCLUDE THE POSSIBILITY OF BREAST CANCER. A CLINICALLY SUSPICIOUS PALPABLE LUMP SHOULD BE BIOPSIED. Dictated by: Edison Kelly MD on 11/05/2023 at 11:55 Approved by: Edison Kelly MD on 11/05/2023 at 11:56 Dictated By: Edison Kelly M.D. Signed By: 11/05/23 1157 DD/ 1156 TD/TT: Green Material Value Added Assessor: Procedure Note Radiology, Radiologist, - 11/05/2023 [place] [address] Mammography Report Signed Patient: NICOL SMITH AMR#: [id number] : 1960cct:[id number] Age/Sex: 63 / FADM Date: 11/05/23 Loc: MAMMO Attending Dr: Uday Wray D.O. Ordering Physician: Uday Wray D.O.Results: Date of Service: 11/05/23Follow Up: Procedure(s): MM tomosynthesis screening BI Accession Number(s): [id number] cc: Yuliana Cortez M.D.; Uday Wray D.O. Patient Name: NICOL SIMTH MR#: [id number] : 1960 Exam Date: 11/05/2023 Ordering Doctor: DR Uday Wray . RADIOLOGY REPORT PROCEDURE: MM TOMOSYNTHESIS SCREENING BI COMPARISON: MG MAMM SCREEN 3D BONNIE CAD, 11/03/2022. MG MAMM SCREEN 3DBIL CAD, 10/31/2021. INDICATIONS: screening Calculator Name NCI Breast Cancer Risk Assessment Tool 5 Year Breast Cancer Risk 1.50% Lifetime Breast Cancer Risk 7.20% Personal Breast Cancer No Personal Ovarian Cancer No Treatments None Family Cancers Grandmother-maternal with uterine cancer at age 50. LOCATION: [facility] BREAST COMPOSITION: Scattered areas fibroglandular density. FINDINGS: DIAGNOSTIC CATEGORY 2--BENIGN FINDING. NO CHANGE FROM COMPARISON. Scattered benign-appearing lymph nodes are present. Scattered benign-appearing calcifications are present. RIGHT BREAST: No significant suspicious finding. LEFT BREAST: No significant suspicious finding. RECOMMENDATIONS: ROUTINE MAMMOGRAM AND CLINICAL EVALUATION IN 12 MONTHS. PLEASE NOTE: A NORMAL MAMMOGRAM DOES NOT EXCLUDE THE POSSIBILITY OFBREAST CANCER. A CLINICALLY SUSPICIOUS PALPABLE LUMP SHOULD BE BIOPSIED. Dictated by: Edison Kelly MD on 11/05/2023 at 11:55 Approved by: Edison Kelly MD on 11/05/2023 at 11:56 Dictated By: Edison Kelly M.D. Signed By:11/05/23 1157 DD/ 1156 TD/TT: Green Material Value Added Assessor: us Uday Wray DO [facility] Final Result documented in this encounter Visit Diagnoses Not on filedocumented in this encounter Care Teams Kickboxing Instructor Relationship Specialty Start Date End Date Yuliana Cortez MD PCP - General Family Medicine 06/13/23 Deja Burnett DO [address] [place] [address] Referring Physician Neurology 10/24/24 documented as of this encounter
--- OUTSIDE RECORDS SUMMARY | 2025-03-12 10:40 | XMS_ITS | Encounter Summary ---
Author Organization [facility] Address [address] [place] [address] Care Team Providers Care Reconciling Clerk Name Role Phone Yuliana Cortez MD Primary Care Provider [phone] Deja Burnett DO Unavailable [phone] Encounter Details Date Type Department Care Team (Late st Contact Info) Description 12/15/2024 Orders Only [facility] [address] [facility] [place] [address] Cora Fitzgerald [address] [place] [address] Social History Tobacco Use Types Packs/Day Years [...] 12/03/2025 9:00 AM EST Office Visit [facility] [address] [facility] [place] [address] Uday Wray DO [address] [place] [address] documented as of this encounter Procedures Procedure Name Priority Date/Time Associated Diagnosis Comments PAP SMEAR Routine 12/01/2024 12:00 AM EST documented in this encounter Results * Pap Smear (12/01/2024 12:00 AM EST) Swab Cervical swab / Unknown us Uday Wray DO LAB CYTOLOGY ORDERABLES Final Re sult EXTERNAL LAB documented in this encounter Visit Diagnoses Not on filedocumented in this encounter Care Teams Reconciling Clerk Relationship Specialty Start Date End Date Yuliana Cortez MD PCP - General Family Medicine 06/13/23 Deja Burnett DO [address] [place] [address] Referring Physician Neurology 10/24/24 documented as of this encounter
--- NOTE | 2025-03-12 13:15 | PM.CN ---
Consult Note: HPI Data of Consult Patient: known to practice within the last 3 years Requesting Physician: Roxie Calixto NP Primary Care Provider: Yuliana Cortez MD Consult Narrative Reason for consult: back pain Narrative: 64yof who presents for evaluation. longstanding middle back, low back, and bilateral LE pain. has engaged in a series of provider directed home exercises > 6 weeks, without lasting benefit. uses otc pain meds as needed. denies adverse med side effects. prior lumbar and thoracic MRI consistent with multilevel degenerative changes and stenosis. Pt was evaluated by MYRON Cortez who dismissed the patients concerns as she has fibromyalgia and diffuse pain, as well as facet mediated low back pain. No surgical intervention was discussed, he was not in favor of a spinal cord stimulator. Patient is very unhappy with her experience and would like to discuss alternative treatment options. utilizing zonegran 50mg BID and tylenol PRN. continues to endorse moderate to severe stabbing, burning pain in low back and bilateral legs. Pain today 5/10 increasing to 10/10 with standing, walking, pushing, pulling, lifting, twisting, bending, activity. Pain improved with heat, sitting, and forward flexion. cc:: CC: Roxie Calixto NP Review of Systems ROS Status of ROS 10 or more systems reviewed and unremarkable except as noted in history and below Musculoskeletal Reports: back pain and joint pain; Denies: extremity pain [facility] Medical History (Updated 03/12/25 @ 13:18 by Roxie Calixto NP) Spinal stenosis ?M48.00 - Spinal stenosis, site unspecified (ICD-10) Carpal tunnel syndrome ?G56.00 - Carpal tunnel syndrome, unspecified upper limb (ICD-10) Anxiety ?F41.9 - Anxiety disorder, unspecified (ICD-10) Hiatal hernia ?K44.9 - Diaphragmatic hernia without obstruction or gangrene (ICD-10) Acid reflux ?K21.9 - Gastro-esophageal reflux disease without esophagitis (ICD-10) Fatty liver ?K76.0 - Fatty (change of) liver, not elsewhere classified (ICD-10) Sleep apnea ?G47.30 - Sleep apnea, unspecified (ICD-10) High cholesterol ?E78.00 - Pure hypercholesterolemia, unspecified (ICD-10) HTN (hypertension) ?I10 - Essential (primary) hypertension (ICD-10) Diabetes ?E11.9 - Type 2 diabetes mellitus without complications (ICD-10) Surgical History History of foot surgery ?Z98.890 - Other specified postprocedural states (ICD-10) History of total hip arthroplasty ?Z96.649 - Presence of unspecified artificial hip joint (ICD-10) S/P trigger finger release ?Z98.890 - Other specified postprocedural states (ICD-10) History of carpal tunnel release ?Z98.890 - Other specified postprocedural states (ICD-10) Hx of tonsillectomy ?Z90.89 - Acquired absence of other organs (ICD-10) Social History Little interest or pleasure in doing things: not at all Feeling down, depressed, or hopeless: not at all Meds Home Medications and Allergies Home Medications ?Medication ?Instructions ?Recorded ?Confirmed ?Type acetaminophen 325 mg tablet 325 mg PO BID PRN pain 08/18/24 02/02/25 History (Tylenol) atorvastatin 20 mg tablet 20 mg PO DAILY 08/18/24 02/02/25 History cholecalciferol (vitamin D3) 1,250 50,000 unit PO QWEEK 08/18/24 02/02/25 History mcg (50,000 unit) capsule levothyroxine 75 mcg capsule 75 mcg PO DAILY 08/18/24 02/02/25 History loratadine 5 mg-pseudoephedrine ER 1 tab PO DAILY PRN allergy symptoms 08/18/24 02/02/25 History 120 mg tablet,extended release,12hr (Claritin-D 12 Hour) metoprolol succinate 25 mg 25 mg PO DAILY 08/18/24 02/02/25 History tablet,extended release 24 hr ferrous sulfate 325 mg (65 mg 325 mg PO DAILY 10/23/24 02/02/25 History iron) tablet (Feosol) multivitamin (Daily Multi-Vitamin 1 tab PO DAILY 10/23/24 02/02/25 History tablet) omeprazole 40 mg capsule,delayed 40 mg PO DAILY 01/28/25 01/28/25 History release diazepam 10 mg tablet (Valium) 10 mg PO BID 02/02/25 02/02/25 History zonisamide 50 mg capsule See Rx Instructions .Route 02/12/25 Rx .COMPLEX #53 caps Allergies Allergy/AdvReac Type Severity Reaction Status Date / Time Penicillins Allergy Unknown Unknown Verified 02/02/25 10:35 metformin AdvReac Severe Cramping Verified 02/02/25 10:35 of the Muscles seritonin Allergy Unknown Unknown Uncoded 02/02/25 10:35 Exam Constitutional Documenting provider has reviewed patient's vital signs: yes Common normals: no apparent distress, oriented x3, healthy appearing, alert and well nourished General appearance: cooperative HENAK Common normals: normocephalic, hearing grossly normal bilaterally and moist oral mucous membranes Head and scalp: normocephalic Eye Common normals: PERRL Pupil: PERRL Neck & C-Spine Common normals: full ROM General: normal visual inspection Chest Common normals: inspection of chest normal Respiratory Common normals: normal respiratory effort, no retractions and no use of accessory muscles Back & Pelvis Thoracic spine/upper back: ROM not limited, no pain with ROM and no thoracic spinal tenderness Lumbar spine/lower back: ROM limited, pain with ROM, lumbar spinal tenderness, straight leg raise positive right and straight leg raise positive left Sacroiliac joints: SI joint(s) abnormal Other: decreased sensation bilateral L5/S1 strength 4/5 in BLE diffuse hyperalgesia positive facet loading left > right positive gina(patricks), gaenslens, thigh thrust, compression test Neuro Common normals: oriented x3 Sensorium/orientation: alert Motor exam: no movement abnormalities noted Psych Common normals: mental status grossly normal, thought process normal, cooperative, affect normal, speech normal and activity/motor behavior normal Speech: normal speech Thought process: normal thought process Results Imaging Lumbar MRI: Attestation: I have reviewed the pertinent imaging results. Radiologist's impression: There is dextroconvex scoliosis with apex at L3. Straightening of the lumbar spine. No subluxation. No compression fractures. Moderate disc space narrowing in the lower thoracic spine to the L2-L3 level and mild disc space narrowing in the remaining lumbar spine. Modic type I changes at L1-L2. Conus medullaris terminates at L2. No abnormal signal in the distal spinal cord and the conus medullaris. L5-S1: Broad-based disc protrusion, moderate facet arthropathy and ligamentum flavum hypertrophy. Mild spinal canal, moderate to severe right and moderate left foraminal stenosis. L4-L5: Disc bulge, severe facet arthropathy and ligamentum flavum hypertrophy. Moderate to severe spinal canal and bilateral lateral recess stenosis and mild bilateral foraminal stenosis. L3-L4: Disc bulge and moderate facet arthropathy. Mild to moderate spinal canal and left foraminal stenosis. L2-L3: Disc bulge and moderate facet arthropathy. Superimposed small right subarticular disc extrusion or sequestration with inferior migration. No spinal canal stenosis. Minimal bilateral foraminal stenosis. L1-L2: Disc bulge and mild facet arthropathy. No spinal canal stenosis. Moderate right foraminal stenosis. T12-L1: Minimal disc bulge without spinal canal or significant neural foraminal stenosis. Thoracic MRI: Attestation: I have reviewed the pertinent imaging results. Radiologist's impression: FINDINGS: A marker is present posteriorly at the level of the C6-C7 intervertebral discs as well as at the T7-T8 intervertebral disc posteriorly. The bones of the thoracic spine are in anatomic alignment. There is preservation of vertebral body heights. There is mild disc height loss at T6-T7, T7-T8, T8-T9, T9-T10, T10-T11, T11-T12, T12-L1, and L1-L2. The marrow signal is within normal limits. No epidural or paraspinous fluid collection is appreciated. The visualized paraspinous soft tissues are within normal limits. Incidental note is made of a hiatal hernia with gastric fundus and body in the lower mediastinum. At T1-T2: There is a normal disc, central canal, and neural foramen. At T2-T3: There is a broad-based disc bulge with facet hypertrophy. There is mild spinal canal stenosis with mild bilateral neural foraminal narrowing. At T3-T4: There is left-sided facet hypertrophy with mild spinal canal narrowing. No significant neural foraminal stenosis. At T4-T5: There is a normal disc, central canal, and neural foramen. At T5-T6: There is a normal disc, central canal, and neural foramen. At T6-T7: There is a normal disc, central canal, and neural foramen. At T7-T8: There is a broad-based disc bulge. There is a left central disc protrusion. There is mild spinal canal narrowing with mild left neural foraminal stenosis. At T8-T9: There is facet hypertrophy contributing to mild spinal canal stenosis with mild bilateral neural foraminal stenosis. At T9-T10: There is facet hypertrophy left greater than right. There is a left foraminal disc protrusion contributing to moderate left neural foraminal narrowing. There is mild spinal canal stenosis. At T10-T11: There is a broad-based disc bulge. There is facet hypertrophy with ligamentum flavum thickening contributing to mild to moderate spinal canal narrowing. There is mild right and moderate left neural foraminal stenosis. At T11-T12: There is a broad-based disc bulge with facet hypertrophy. There is mild spinal canal narrowing with moderate left and mild right neural foraminal stenosis. At T12-L1: There is a broad-based disc bulge with facet hypertrophy. There is mild spinal canal narrowing with mild bilateral neural foraminal stenosis. Additional Findings Additional findings: If on a controlled substance or opioids, I have checked an [place] report on this patient and there are no aberrancies noted in the prescribing history.??If on a controlled substance or opioid a drug screen was completed and reviewed within the last year, and if there has not been a drug screen completed we ordered one today to monitor higher risk, state monitored pain medication use. As part of providing excellent, safe, comprehensive care, the following was completed at our patient's visit: 1. A medication reconciliation and review to ensure accurate knowledge of current/active medications, including asking our patients to inform us about any [id number] medications or herbal remedies/nutritional supplements/alternative remedies. 2. A review to specifically ensure our patients have had annual screening for screening for depression, screening for tobacco use, and screening for unhealthy alcohol use. For concerning screenings had a discussion with the patient, provided patient education, and recommended follow-up with primary care provider when appropriate. If patient noted with a risk of falling, they received education on strength, gait, and balance training to prevent future risk of falling. Portions of this note may have been carried over from the previous visit and updated as appropriate. Please note this office utilizes paper charting in addition to the electronic medical record. A list of current medications, vitals, and PMH is available there as the clinical staff outside of myself do not have access to [employer] charting during the clinic day operations. As part of providing quality comprehensive care the current medications, vitals, and PMH were reviewed in the paper chart. Assessment and Plan Assessment and Plan (1) Lumbar stenosis with neurogenic claudication: (2) Thoracic stenosis: (3) Thoracic radiculopathy: (4) Sacroiliitis: (5) Lumbar spondylosis: (6) Myalgia, other site: (7) Chronic thoracic back pain: (8) Fibromyalgia: Plan 64 year old female with chronic thoracic and lumbar pain presents with failure to respond to PT/Provider guided HEP >6 weeks, heat, ice, tylenol, cannot take NSAIDs due to hiatal hernia. advanced imaging consistent with thoracic stenosis and lumbar stenosis. will refer to NS at this time for evaluation of thoracic and lumbar stenosis with significant functional impairment, consider scs trial if nonsurgical. continue zonegran 50mg BID. pt declining L5/S1 TFESI and SIJ injections at this time.
== END 2025-03-12 10:37 | disposition home or self-care (01) ==
LOC: PM 10:37
PROVIDERS: PCP Family Medicine; Visit Provider Nurse Practitioner
DX: M48.062 Spinal stenosis, lumbar region with neurogenic claudication (principal); M48.04 Spinal stenosis, thoracic region; M54.14 Radiculopathy, thoracic region; M46.1 Sacroiliitis, not elsewhere classified; M47.816 Spondylosis without myelopathy or radiculopathy, lumbar region; M79.18 Myalgia, other site; M54.6 Pain in thoracic spine
CPT/HCPCS: G0463

== ENCOUNTER 2025-06-22 09:35 | Outpatient (OUT) | payer MEDICARE, SELFPAY ==
--- OUTSIDE RECORDS SUMMARY | 2025-06-22 09:44 | XMS_ITS | CCD ---
Author Organization [facility] Care Team Providers Care Manager Leadership Development Name Role Phone SELF, REFERRED Referring Unavailable DAVID LR Admitting Unavailable DAVID LR Attending Unavailable WAQAS PIERCE Primary Care Unavailable DAVID LR Surgeon Unavailable [place] Procedure Practitioner Unavailab JUDSON Martinez Surgeon Unavailable [place] Procedure Practitioner Unavailab Junior Peterson Unavailable Mallory Yuen Unavailable NON STAFF Primary Care Provider UnavailMD David Merritt II Attending Provider David Mcfarland II Unavailable [phone] MD Waqas Pierce Primary Care Provider [phone] MD Waqas Pierce Attending Provider WAQAS PIERCE [...] Consulting Unavailable DIEGO WHITLEY Consulting Unavailable MARIA EUGENAI HUTTON Consulting Unavailable KARI, DR WAQAS Mendez Primary Care Unavailable JASMIN, DR MARSHALL Attending Unavailable JASMIN, DR MARSHALL Admitting Unavailable JASMIN, DR MARSHALL Consulting Unavailable KARI, DR WAQAS Mendez Primary Care Unavailable AMY KASPER Attending Unavailable IJEOMA, DR SHAWNEE James Consulting Unavailable AMY KASPER Admitting Unavailable AMY KASPER Consulting Unavailable KARI, DR WAQAS Mendez Primary Care Unavailable NILS ., DR MALAVE Attending Unavailable NILS ., DR MALAVE Consulting Unavailable NILS ., DR MALAVE Admitting Unavailable SHAWANDA ., [...] Unavailable HIGHLANDER, AMY Ivesron Attending Unavailable HIGHLANDER, AMY D Admitting Unavailable [...] PIERCE, DR WAQAS Mendez Primary Care Unavailable NILS ., DR MALAVE Admitting Unavailable NILS ., DR MALAVE Attending Unavailable WEST, DR SHAWNEE James Consulting Unavailable NILS ., DR MALAVE Consulting Unavailable ZIEBER, DR ARIELA Vaz Consulting Unavailable PIERCE, DR WAQAS Mendez Primary Care Unavailable HIGHLANDER, AMY Iverson Attending Unavailable WEST, DR SHWANEE James Consulting Unavailable HIGHLANDER, PETER D Admitting [...] Primary Care Unavailable ELICEO HELTON Attending Unavailable VANESSA TOMPKINS Consulting Unavailable AMY FOWLER Consulting Unavailable FAWWAD, ROWLAND H Attending Unavailable FAWWAD, ROWLAND H Admitting Unavailable PIERCE, DR WAQAS Mendez Primary Care Unavailable ZAHEER, DR ARIELA Vaz Consulting Unavailable LAMIN MOHAN Consulting Unavailable HIGHLANDER, AMY Iverson Consulting Unavailable AGUBOSIM, MELINDA Consulting Unavailable HIGHLANDER, AMY Iverson Procedure Practitioner Unava ilenid GIL ., ELICEO Consulting Unavailable FAWWAD, ROWLAND H Consulting Unavailable BELL NORMAN Consulting Unavailable DEVIN, AMAR Consulting Unavailable AA, AA Consulting Unavailable PIERCE, DR WAQAS Mendez Primary Care Unavailable NILS ., DR MALAVE Attending Unavailable NILS ., DR MALAVE Consulting Unavailable NILS ., DR MALAVE Admitting Unavailable ZIEBER, DR [...] MISC, DR PEÑA Attending Unavailable HIGHLANDER, AMY Ivreson Attending Unavailable PIERCE, DR WAQAS Mendez Primary [...] MD David Mcfarland II Attending Provider [phone] NON STAFF Primary Care Provider UnavailMD Marcin Chambesr Attending Provider Waqas Pierce MD Primary Care Provider David Mcfarland MD Attending Provider NON STAFF Primary Care Provider UnavailMarcin Chambers MD Attending Provider Esau Busch MD Attending Provider NON STAFF Primary Care Provider UnavailMarcin Chambers MD Attending Provider Waqas Pierce MD Attending Provider NON STAFF Primary Care Provider Marcin Zamorano MD Attending Provider Waqas Pierce MD Attending Provider Waqas Pierce MD Attending Provider Waqas Pierce MD Primary Care Provider Deja Burnett DO Unavailable Waqas Pierce MD Primary Care Provider Waqas Pierce MD Attending Provider UDAY WRAY Attending Unavailable Waqas Pierce MD Primary Care Provider Esau Busch MD Attending Provider [phone] NON STAFF Primary Care Provider UnavailMarcin Chambers MD Attending Provider Waqas Pierce MD Attending Provider Paulino Hughes MD Attending Provider [phone] Paulino Hughes MD Admit Provider Unavailable Primary Care Provider UnavailJUN Pandey Attending Unavailable Waqas Pierce MD Primary Care Provider Esau Busch MD Attending Provider Waqas Pierce MD Primary Care Provider Waqas Pierce MD Primary Care Provider Paulino Hughes MD Attending Provider Mer Kirkland APRN Attending Provider Waqas Pierce MD Primary Care Provider Paulino Hughes MD Attending Provider [phone] Waqas Pierce MD Primary Care Provider ANITA TAFOYA Attending Unavailable CHRIS, GEE Referring Unavailable CHRIS, GEE Referring Unavailable ANITA TAFOYA Attending Unavailable Girichie PINEDA, Andrius Harjinder Attending Unavailable Sergio PINEDA, Andrius Harjinder Attending Unavailable Sergio PINEDA, Andrius Vjesus Attending Unavailable Sergio PINEDA, Andrius Vjesus Attending Unavailable Waqas Pierce MD Primary Care Provider [phone] PAULINO HUGHES Admitting Unavailable PAULINO HUGHES Attending Unavailable WAQAS PIERCE Primary Care Unavailable NARAGHI, AMIR Consulting Unavailable CHUCHO, RAMI Consulting Unavailable PAULINO HUGHES Referring Unavailable WAQAS PIERCE Primary Care Unavailable Waqas Pierce MD Primary Care Provider Mer Kirkland APRN Attending Provider Waqas Pierce MD Attending Provider Saad Pierce MD Attending Provider [phone] Tara Nicholson CMA Attending Provider Unavaila ble JUN LAWSON Attending Unavailable UDAY WRAY Referring Unavailable JUN LAWSON Attending Unavailable Waqas Pierce MD Primary Care Provider Mer Kirkland APRN Attending Provider Waqas Pierce MD Attending Provider Paulino Hughes MD Attending Provider Waqas Pierce MD Primary Care Provider Waqas Pierce Primary Care Unavailable Paulino Hughes Attending Unavailable Paulino Hughes Admitting Unavailable Scovanner, Mer Gordillo Admitting Unavailable Scovanmynor, Mer Gordillo Attending Unavailable Waqas Pierce E Primary Care Unavailable Scovanmynor, Mer M Admitting Unavailable Scovanner, Mer M Attending Unavailable Pierce, Waqas E Primary Care Unavailable Robke, Paulino Attending Unavailable Robke, Paulino Admitting Unavailable Pierce, Waqas E Primary Care Unavailable Robke, Paulino Attending Unavailable Robke, Paulino Admitting Unavailable Pierce, Waqas E Primary Care Unavailable [place] II, David M Admitting Unavailabl e Bartolo II, David M Attending Unavailabl e Pierce, Waqas E Primary Care Unavailable Esau Busch Admitting Unavailable DittEsau oquendo Attending Unavailable Pierce, Waqas E Primary Care Unavailable Pierce, Waqas E Primary Care Unavailable Pierce, Waqas E Attending Unavailable Pierce, Waqas E Admitting Unavailable Robke, Paulino Admitting Unavailable Robke, Paulino Attending Unavailable Pierce, Waqas E Primary Care Unavailable Robke, Paulino Attending Unavailable Robke, Paulino Admitting Unavailable Pierce, Waqas E Primary Care Unavailable DiEsau brice Attending Unavailable DittEsau oquendo Admitting Unavailable Pierce, Waqas E Primary Care Unavailable Robke, Paulino Attending Unavailable Robke, Paulino Admitting Unavailable Pierce, Waqas E Primary Care Unavailable DiEsau brice Admitting Unavailable DittEsau oquendo Attending Unavailable Pierce, Waqas E Primary Care Unavailable Allergies Allergy Classification Reported Allergen(s) Allergy Type Date of Onset Reaction(s) Facility metFORMIN (1 source) metFORMIN; Translations: [METFORMIN] Drug Allergy 12-17-19 [facility] Repository Penicillins (antibiotic) (1 source) Penicillin Drug Allergy 03-11-20 18 [facility] Repository Serotonin (1 source) Serotonin; Translations: [SEROTONIN] Drug Allergy 12-17-19 21 [facility] Repository (20 sources) Penicillin G Drug Allergy 11-01-19 24 [facility] (20 sources) CYMBOLTA Propensity to adverse reactions temporary blindness and couldnt feel herself breathing Progeniq Other (20 sources) DULoxetine; Translations: [duloxetine] Drug Allergy 09-05-20 22 Impairment level of vision (disorder) [facility] (20 sources) metFORMIN; Translations: [metformin] Drug Allergy 11-23-19 22 Abdominal mass (finding) [facility] (20 sources) Penicillin; Translations: [penicillin] Drug Allergy 08-08-20 13 Eruption of skin (disorder) [facility] (1 source) DULoxetine Drug Allergy [facility] Repository (1 source) metFORMIN Drug Allergy [facility] (20 sources) Penicillins; Translations: [PENICILLINS] Drug allergy (disorder) 10-01-19 00 Rash [facility] Repository (20 sources) Rx Essentials Antidepressant *HEMATOPOIETIC AGENTS Propensity to adverse reactions Comment:[facility] Progeniq Other (3 sources) Allergies Reconciled Propensity to adverse reactions 08-17-20 21 Unknown Progeniq Other (20 sources) Substance with penicillin structure and antibacterial mechanism of action (substance) Drug allergy Unknown [facility] Molecule Synth Other (20 sources) Substance with serotonin re-uptake inhibitor mechanism of action (substance) Drug allergy 09-04-20 12 Shortness of breath [facility] Molecule Synth Other (3 sources) patient allergy list reviewed by nurse or physicia Propensity to adverse reactions 12-09-19 14 Comment:Done Progeniq Other (20 sources) Serotonin; Translations: [SEROTONIN] Drug Allergy 06-07-20 23 Shortness Of Breath [facility] (15 sources) Rx Essentials Antidepressant * Allergy to substance 11-01-19 24 Comment:[facility] Comment on above: Free Text Allergy: R x Essentials Antidepressant *HEMATOPOIETIC AGENTS (6 sources) metFORMIN Drug Allergy 06-07-20 23 [facility] (6 sources) Penicillin G sodium Allergy to substance 06-07-20 23 [facility] (3 sources) Penicillins Propensity to adverse reactions to drug 12-25-19 25 [facility] (1 source) DULoxetine Drug Allergy 11-23-19 22 [facility] (1 source) Penicillins Propensity to adverse reactions to drug 06-28-19 70 Itching, Rash [facility] (1 source) Serotonin Reuptake Inhibitors (Ssris) Propensity to adverse reactions to drug 06-07-20 23 Shortness Of Breath [facility] Medications Current Medications Medication Drug [...] weekly for 28 days Mar, Active acetaminophen 650 mg rectal suppository (20 sources) Start: 03-24-2025 take 650 mg rectal route every four hours as needed for pain 650 mg, Rectal, EVERY 4 HOURS PRN, Starting on Sun03/24/25 at 1605, Until Discontinued, Other, Pain (1-10), Give in addition to any other pain medication ordered at same time for any pain indication., Post-op Start: 01-03-2024 take 2 tablets by mo uth twice daily Acetaminophen 500 mg tablet Active 1000 MG PO Twice daily January 03, 2024 11:02am Complies with drug therapy Start: 01-03-2024 take 1000 mg by mout h twice daily Acetaminophen Active 1000 MG PO .COMPLEX January 03, 2024 10:02am 1,000 mg orally bid; Start: 12-26-2023 End: 01-03-2024 take 2 tablets by mouth every eight hours as needed Acetaminophen 500 mg tablet Discontinued 1000 MG PO Every 8 hours as needed December 26, 2023 12:00am January 03, 2024 11:02am Start: 12-26-2023 End: 01-03-2024 take 1000 mg [...] UPON DISCHARGE DOS: 09/03/23 30 Aug, 2023 Active take 1 tablet by krysten th every eight hours as needed for pain acetaminophen (TYLENOL ARTHRITIS) 650 mg 8 hr tablet Take 1 tablet (650 mg total) by mouth every 8 (eight) hours as needed for pain. Active Tylenol Active acetaminophen 325 mg / oxyCODONE hydrochloride 5 mg oral tablet (2 sources) Opioid Agonist Start: 03-29-2025 End: 04-05-2025 oxyCODONE-acetaminophen (PERCOCET) 5-325 MG per tablet Indications: Paraesophageal hernia Take 1 tablet by mouth every 6 hours as needed for Pain for up to 7 days. Max Daily Amount: 4 tablets 25 tablet 03/29/2025 04/05/2025 Active Start: 03-29-2025 1 tablet, Oral , EVERY 4 HOURS PRN, Starting on 03/29/25 at 0945, Until Discontinued, Pain Severe (7-10), Maximum dose of acetaminophen is 4000 mg from all sources in 24 hours. [id number] 200 actuat albuterol 0.09 mg/actuat metered dose inhaler (20 sources) beta2-Adrenergic Agonist Start: 05-08-2024 take 2 puff(s) by mouth every four to six hours as needed for wheezing Albuterol Sulfate 90 mcg/actuation HFA aerosol inhaler Active 0 .ROUTE .COMPLEX 6.7 May 08, 2024 9:56am INHALE 2 PUFFS BY MOUTH EVERY 4 TO 6 HOURS NEEDED SHORTNESS OF BREATH or FOR WHEEZING Complies with drug therapy Start: 01-01-2024 End: 05-08-2024 take 1 puff(s) by inhalation every four to six hours as needed for wheezing Albuterol Sulfate 90 mcg/actuation HFA aerosol inhaler Discontinued 2 PUFF INHALATION EVERY 4-6 HOURS as needed for shortness of breath or wheezing 6.7 January 01, 2024 12:00am May 08, 2024 9:56am Start: 01-01-2024 End: 05-08-2024 take 1 puff(s) [...] needed Inhalation every 4 hrs Oct, Active End: 01-30-2025 albuterol (PROVENTIL HFA;IRMA TOLIN HFA) 90 mcg/actuation inhaler albuterol sulfate HFA 90 mcg/actuation aerosol inhaler 01/30/2025 Discontinued alendronic acid 70 mg oral tablet (1 source) Bisphosphonate take 1 tablet by mouth once daily Fosamax 70 MG 1 tablet 30 minutes before the first food, beverage or medicine of the day with plain water Orally Active Ashwagandha (20 sources) Ashwagandha 300 MG/ 2 tabs QD Active aspirin 81 mg delayed release oral tablet (14 sources) Platelet Aggregation Inhibitor, Nonsteroidal Anti-inflammatory Drug [...] BED UPON DISCHARGE DOS: 09/03/23 Aug, Active End: 01-30-2025 aspirin 325 mg tablet daily. 01/30/2025 Discontinued azithromycin 250 mg oral tablet (3 sources) Macrolide Antimicrobial Start: 08-01-2023 Azithromycin 250 MG as directed Orally 2 tabs po today, then 1 tab daily x 4 more days for 5 Aug, Active baclofen 10 mg oral tablet (3 sources) gamma-Aminobutyric Acid-ergic Agonist End: 01-30-2025 take 1 tablet by mouth at bedtime baclofen (LIORESAL) 10 mg tablet baclofen 10 mg tablet TAKE 1 TABLET BY MOUTH AT BEDTIME 01/30/2025 Discontinued Baclofen 10 MG/5 ML as directed Intrathecal Active benzocaine 200 mg/ml topical spray (1 source) Standardized Chemical Allergen Start: 03-27-2025 Mouth/Throat, 3 TIMES DAILY PRN, Pain, Starting on Sun03/27/25 at 1507, Firmly insert provided extension tube into spray can valve. Hold extension tube 1-2 inches from affected area and spray for second (press and immediately release actuator). Calcium + Vitamin D3 (20 sources) Calcium + Vitami n D3 Active celecoxib 200 mg oral capsule (12 sources) Nonsteroidal Anti-inflammatory Drug Start: 08-30-2023 take 1 capsule by mouth every twelve hours Celecoxib 200 MG 1 capsule with food Orally Twice a day for 30 days MED TO BED UPON DISCHARGE DOS: 09/03/23 Aug, Active cetirizine hydrochloride 10 mg oral tablet (1 source) Histamine-1 Receptor Antagonist take 1 tablet by mouth once daily cetirizine (ZYRTEC) 10 MG tablet Take 1 tablet by mouth daily Active cholecalciferol 0.05 mg oral tablet (20 sources) Vitamin D Start: 06-18-2024 take 1 tablet by mouth in the morning cholecalciferol, vitamin D3, 2,000 units tablet Take 1 tablet (2,000 Units total) by mouth in the morning. 06/18/2024 Active Start: 08-28-2023 take 1 tablet by krysten th once daily Cholecalciferol (Vitamin D3) (Vitamin D3) 50 mcg (2,000 unit) Tablet Active 50 MCG PO every day at noon August 28, 2023 1:00am Complies with drug therapy take 1 tablet by krysten th once daily Cholecalciferol 50 MCG (2000 UT) 1 tablet [...] 3 capsules Orally every 8 hrs Active COENZYME Q-10 PO (1 source) take 2 capsules by mouth once daily COENZYME Q-10 PO Take 2 capsules by mouth daily Active Diclofenac 75mg Tab-DR (1 source) Start: 08-16-20 take 1 tablet by mouth twice daily Diclofenac 75mg Tab-DR 75 mg, Oral, BID, Refills(s) 0 Start Date: 08/16/20 Status: Ordered docusate sodium 50 mg / sennosides, shelter 8.6 mg oral tablet (12 sources) Start: 08-30-20 take 2 tablets by mouth every twenty-four hours Senokot S 8.6-50 MG 2 tablets Orally Once a day for 30 days MED TO BED UPON DISCHARGE DOS: 09/03/23 PRN Aug, Active EXTRA STRENGTH ACETAMINOPHEN PO (6 sources) take 2 doses by mouth in the morning EXTRA STRENGTH ACETAMINOPHEN PO Take 2 each by mouth in the morning. Active Famotidine (1 source) Histamine-2 Receptor Antagonist Start: 03-24-20 famotidine (PEPCID) tablet 20 mg ferrous sulfate 325 mg delayed release oral tablet (20 sources) Start: 12-03-19 take 1 tablet by mouth once daily Ferrous Sulfate 325 mg (65 mg iron) tablet,delayed release (DR/EC) Active 325 MG PO every day at noon December 02, 2024 1:00am Complies with drug therapy fexofenadine hydrochloride 180 mg oral tablet (10 sources) Histamine-1 Receptor Antagonist Start: 02-04-20 take 1 tablet by mouth once daily Fexofenadine (Ivone Allergy) 180 mg tablet Active 180 MG PO Daily February 03, 2025 12:00am Complies with drug therapy Fish Oils (20 sources) Fish Oil 454mg g ummy 3 a day Active Fish Oil Active Flax Seed Oil (20 sources) Flax Seed Oil 14 00mg capsule qd Active fluticasone propionate 0.05 mg/actuat metered dose nasal spray (20 sources) Corticosteroid Start: 11-22-2023 Fluticasone Propionate 50 mcg/actuation spray,suspension Active 1 SPRAY INTRANASAL Daily as needed for allergy symptoms November 22, 2023 1:00am Complies with drug therapy take 1 spray(s) nasa l route once daily as needed Fluticasone Propionate 50 MCG/ACT 1 spra y in each nostril Nasally Once a day PRN Active take 1 spray(s) nasal route once daily Fluticasone Propionate 50 MCG/ACT 1 spray in each nostril Nasally Once a day Active glucagon (rdna) 1 mg injection (1 source) Antihypoglycemic Agent Start: 03-25-2025 1 mg, S ubCUTAneous, PRN, Starting on Sun03/25/25 at 0920, Until Discontinued, Low blood sugar, Blood glucose LESS THAN 70 mg/dL and patient NOT ALERT or NPO and does not have IV access., After administration, attempt intravenous access and start dextrose 10% at 100 mL/hr. Repeat blood glucose in 15 minutes x 2 and notify provider. Reconstitute powder for injection by adding 1 mL of tank bottom assembler-supplied sterile diluent or sterile water for injection to a vial containing 1 mg of the drug, to provide solutions containing 1 mg/mL. Shake vial gently to dissolve. Glucose (3 sources) Start: 03-25-2025 IntraVENous, a t 100 mL/hr, CONTINUOUS PRN, if blood glucose remains LESS THAN 70 mg/dL after 2 dextrose 10% intravenous boluses or administration of glucagon, Starting on Sun03/25/25 at 0920, If blood glucose fails to stabilize after 2 dextrose 10% intravenous boluses or glucagon administration, start dextrose 10% infusion at 100 mL/hour and repeat blood glucose at 30 and 60 minutes. If blood glucose is GREATER THAN 70 mg/dL after 60 minutes, discontinue dextrose 10% infusion. Start: 03-25-2025 dextrose bolus 10% 125 mL Start: 03-25-2025 16 g (4 tablet ), Oral, PRN, Starting on Sun03/25/25 at 0920, Until Discontinued, Low blood sugar, If blood glucose is LESS THAN 70 mg/dL and patient is alert and tolerating oral. Give 4 tablets (16g) Repeat blood glucose in 15 minutes. If blood glucose is LESS THAN 70 mg/dL, repeat treatment and recheck blood glucose in 15 minutes x 2. If blood glucose remains LESS THAN 70 mg/dL, notify provider. High Potency Probiotic (1 source) Start: 08-18-2020 take 1 tablet by mouth once daily High Potency Probiotic 1 tab(s), Oral, Daily, Refill(s) 0 Start Date: 08/18/20 Status: Ordered 1 ml ketorolac tromethamine 30 mg/ml cartridge (1 source) Nonsteroidal Anti-inflammatory Drug, Cyclooxygenase Inhibitor Start: 03-24-2025 End: 03-29-2025 30 mg, IntraVENous, EVERY 6 HOURS PRN, Starting on Sun03/24/25 at 1550, Until Sun03/29/25 at 1549, Pain Moderate (4-6), allowed for higher pain score per patient request, Do not administer for more than 5 days. Lidocaine (2 sources) Antiarrhythmic, Amide Local Anesthetic End: 01-30-2025 lidocaine (XYLOCAINE) 10 mg/mL (1 %) injection 1 mL (10 mg total). 01/30/2025 Discontinued lidocaine (XYLOC MANNY) 10 mg/mL (1 %) injection 1 mL (10 mg total). Active Magnesium (20 sources) take 1 tablet by mouth once daily Magnesium 250 MG 1 tablet with a meal Orally Once a day Active magnesium oxide 400 mg oral capsule (5 sources) magnesium oxide 400 mg magnesium capsule daily. Active 50 ml magnesium sulfate 40 mg/ml injection (1 source) Start: 2,000 mg, IntraVENous, at 25 mL/hr, Administer over 2 Hours, PRN, Other, Magnesium Replacement, Starting on Sun03/24/25 at 1605, Mag Lab Replacement Action 1.4-1.6 mg/dL 2,000 mg Total Dose Given as 1,000 mg IVPB x 2 doses or 2,000 mg IVPB x 1 dose 1.0-1.3 mg/dL 4,000 mg Total Dose Given as 1,000 mg IVPB x 4 doses or 2,000 mg IVPB x 2 doses Less than 1.0 mg/dL CALL PHYSICIAN and give 4,000 mg Total Dose Given as 1,000 mg IVPB x 4 doses or 2,000 mg IVPB x 2 doses Infuse at 1,000 mg/hr Repeat Mag level 1 hour after final administration Protocol not for use in Patients with CrCl less than 30ml/min, Post-op 24 hr metoprolol succinate 50 mg extended release oral tablet (20 sources) beta-Adrenergic Miranda Start: take 1 tablet by mouth once daily in the morning Metoprolol Succinate 50 mg tablet extended release 24 hr Active 50 MG PO Every morning December 02, 2024 1:00am Complies with drug therapy Start: 11-08-2022 End: 10-28-2024 take 1 tablet by mouth once daily in the morning Metoprolol Succinate 25 mg tablet extended release 24 hr Discontinued 25 MG PO Every morning August 28, 2023 1:00am October 28, 2024 11:16am Start: 11-08-2022 End: 12-02-2024 Metoprolol Succinate 25 mg t ablet extended release 24 hr Discontinued 50 MG PO Every morning October 28, 2024 11:15am December 02, 2024 4:58pm Start: 11-08-2022 take 1 tablet by krysten th every twenty-four hours in the morning metoprolol succinate XL (Toprol-XL) 25 MG 24 hr tablet Take 1 tablet by mouth in the morning. 11/08/2022 Active take 1 tablet by krysten th in the morning metoprolol tartrate (LOPRESSOR) 50 mg tablet Take 1 tablet (50 mg total) by mouth in the morning. Active metroNIDAZOLE 7.5 mg/ml topical cream (2 sources) Nitroimidazole Antimicrobial End: 01-30-2025 metroNIDAZOLE (METROCREAM) 0.75 % cream metronidazole 0.75 % topical cream 01/30/2025 Discontinued mounjaro 2.5 mg/0.5ml solution pen-injector (13 sources) Start: 03-09-2023 Mounjaro 2.5 M G/0.5ML as directed Subcutaneous weekly Mar, Active Mounjaro 2.5 MG/ 0.5ML as directed Subcutaneous weekly Active Multiple Vitamins-Minerals (THERAPEUTIC MULTIVITAMIN-MINERALS) tablet (1 source) take 1 tablet by mouth once daily Multiple Vitamins-Minerals (THERAPEUTIC MULTIVITAMIN-MINERALS) tablet Take 1 tablet by mouth daily Active Multivitamin preparation (20 sources) take 1 tablet by mouth once daily Multivitamin - 1 tablet Orally Once a day Active Multivitamin tablet (15 sources) Start: 12-03-19 take 1 tablet by mouth once daily Start: 12-02-2024 take 1 tablet by krysten th once daily Multivitamin tablet Active 1 TAB PO every day at December 02, 2024 1:00am Complies with drug therapy Start: 12-02-2024 take 1 tablet by krysten th once daily Multivitamin tablet Active 1 TAB PO every day at December 02, 2024 1:00am naloxone 0.4 mg in 10 mL sodium chloride syringe (1 source) Start: 03-24-2025 IntraVENous, P RN, Opioid Reversal, Starting on Sun03/24/25 at 1605, PRN if respiratory rate is less than 6/min and patient is difficult to arouse then notify physician STAT. Mix 9 mL of sodium chloride 0.9% with 0.4 mg (1 mL) of naloxone (NARCAN) in 10 mL syringe. (Note: dilution is 0.04 mg/mL) Give 0.08 mg (2 mL of special dilution), slow IV push, repeat up to 0.4 mg (10 mL) or until patient is responsive to physical stimulation and respiratory rate is equal to or greater than 6 breaths/min. Continue to observe, if no response within 3 minutes of administration of 0.4 mg (10 mL) total, repeat dose (0.4 mg as administered previously). Concentration 0.04 mg/mL, PACU only omeprazole 40 mg delayed release oral capsule (20 sources) Proton Pump Inhibitor Start: 11-04-2024 End: 04-20-2025 take 1 capsule by mouth twice daily Omeprazole 40 mg capsule,delayed release(DR/EC) Active 40 MG PO Twice daily April 20, 2025 4:12pm Complies with drug therapy take 2 tablets by mouth twice da thalia omeprazole (PriLOSEC OTC) 20 mg EC tablet Take 2 tablets (40 mg total) by mouth 2 (two) times daily at 0800 and 1500. Active take 1 capsule by mouth once oliva ly omeprazole (PRILOSEC) 20 MG delayed release capsule Take 1 capsule by mouth daily Active ondansetron (ZOFRAN-ODT) disintegrating tablet 4 mg (1 source) Start: 03-24-2025 ondansetron (Z OFRAN-ODT) disintegrating tablet 4 mg Osteo Bi-Flex Triple Strength - (20 sources) Osteo Bi-Flex Tr iple Strength - as directed Orally Active polyethylene glycol 3350 20104 mg powder for oral solution (20 sources) Osmotic Laxative Start: 08-04-2024 Polyethylene Glycol 3350 (Miralax) 17 gram powder in packet Active 17 GM PO Daily as needed for constipation August 04, 2024 1:00am Complies with drug therapy Start: 08-30-2023 MiraLax 17 GM 1 packet [...] 75 mg oral capsule (20 sources) Start: take 1 capsule by mouth twice daily pregabalin 75 mg Cap 75 mg = 1 cap(s), Oral, BID, Refills(s) 0 Start Date: 11/08/22 Status: Ordered Qunol Ultra CoQ10 100-150 MG-UNIT (20 sources) Qunol Ultra CoQ1 0 100-150 MG-UNIT as directed Orally Active Tirzepatide (Mounjaro) 2.5 MG/0.5ML solution pen-injector (6 sources) inject 2.5 mg by subcutaneous injection every week Tirzepatide (Mounjaro) 2.5 MG/0.5ML solution pen-injector Inject 2.5 mg under the skin 1 (one) time per week. Active tiZANidine 4 mg oral tablet (2 sources) Central alpha-2 Adrenergic Agonist End: take 1 tablet by mouth at bedtime as needed for muscle spasms tiZANidine (ZANAFLEX) 4 mg tablet tizanidine 4 mg tablet TAKE 1 TABLET BY MOUTH AT BEDTIME NEEDED for back spasms 01/30/2025 Discontinued triamcinolone acetonide 10 mg/ml injectable suspension (2 sources) Corticosteroid End: triamcinolone acetonide (KENALOG) 10 mg/mL injection 1 mL (10 mg total). 01/30/2025 Discontinued Triamcinolone Acet-Ciclopirox 0.1 & 8 % (20 sources) Triamcinolone Acet-Ciclopirox 0.1 & 8 % as directed Externally Active trospium chloride 20 mg oral tablet (1 source) Cholinergic Muscarinic Antagonist Start: 025 ubiquinol 100 mg oral capsule (20 sources) Start: take 1 capsule by mouth once daily Coq10 (Ubiquinol) (Qunol Rudy Coq10) 100 mg capsule Active 100 MG PO every day at noon November 22, 2023 1:00am Complies with drug therapy Start: 11-22-2023 take 1 capsule by [facility] twice daily Coq10 (Ubiquinol) (Qunol Rudy Coq10) 100 mg capsule Active 100 MG PO Twice daily November 22, 2023 12:00am Qunol Ultra CoQ1 0 100-150 MG-UNIT as directed Orally Not-Taking/PRN vitamin b12 0.5 mg oral tablet (1 source) Vitamin B12 take 1 tablet by mouth once daily vitamin B-12 (CYANOCOBALAMIN) 500 MCG tablet Take 1 tablet by mouth daily Active Vitamin D 50 MCG (1999) (3 sources) take 1 capsule by mouth once daily Vitamin D 50 MCG (1999) 1 capsule Orally Once a day Active Completed/Discontinued Medications Medication Drug Class(es) Dates Sig (Normalized) Sig (Original) acetaminophen 325 mg / HYDROcodone bitartrate 5 mg oral tablet (20 sources) Opioid Agonist HYDROcodone-Acet ami nophen 5-325 MG TAKE 1 TO 2 TABLETS BY MOUTH EVERY 6 TO 8 HOURS NEEDED max 5 (FIVE) TABLET per 24 HOURS Oral for 6 Days PRN Not-Taking Albuterol Sulfate 90 mcg/actuation HFA aerosol inhaler (16 sources) Start: 01-01-2024 End: 05-08-2024 take 1 puff(s) by inhalation every four to six hours as needed for wheezing Albuterol Sulfate 90 mcg/actuation HFA aerosol inhaler Discontinued 2 PUFF INHALATION EVERY 4-6 HOURS as needed for shortness of breath or wheezing 6.7 January 01, 2024 12:00am May 08, 2024 9:56am Start: 01-01-2024 End: 05-08-2024 take 1 puff(s) by inhalation every four to six hours as needed for wheezing Albuterol Sulfate 90 mcg/actuation HFA aerosol inhaler Discontinued 2 PUFF INHALATION EVERY 4-6 HOURS as needed for shortness of breath or wheezing 6.7 December 31, 2023 11:00pm May 08, 2024 8:56am atorvastatin 20 mg oral tablet (20 sources) HMG-CoA Reductase Inhibitor Start: 03-26-2025 take 20 mg by mouth once daily 20 mg, Oral, NIGHTLY, First dose on Mandy 03/26/25 at 2100, Until Discontinued Start: 01-12-2025 take 1 tablet by krysten th once daily Atorvastatin 20 mg tablet Active 0 .ROUTE .COMPLEX 90 January 12, 2025 2:44pm TAKE 1 TABLET BY MOUTH DAILY Complies with drug therapy Start: 12-02-2024 End: 01-12-2025 take 1 tablet by mouth once daily at bedtime Atorvastatin 20 mg tablet Discontinued 20 MG PO Daily at bedtime December 02, 2024 1:00am January 12, 2025 2:45pm Start: 01-09-2024 End: 12-02-2024 take 1 tablet by mouth once daily Atorvastatin 20 mg tablet Discontinued 0 .ROUTE .COMPLEX July 03, 2024 10:27am December 02, 2024 5:04pm TAKE 1 TABLET BY MOUTH DAILY Start: 01-09-2024 End: 07-03-2024 take 1 tablet by mouth once daily Atorvastatin Discontinued 0 .ROUTE .COMPLEX January 09, 2024 1:16pm July 03, 2024 9:27am TAKE 1 TABLET BY MOUTH DAILY Start: 01-09-2024 take 1 tablet by [facility] once daily Atorvastatin Active 0 .ROUTE .COMPLEX 90 January 09, 2024 2:16pm TAKE 1 TABLET BY MOUTH DAILY Start: 08-16-2020 End: 01-09-2024 take 1 tablet by mouth once daily at bedtime Atorvastatin 20 mg tablet Discontinued 20 MG PO Daily at bedtime August 28, 2023 1:00am January 09, 2024 2:16pm Atorvastatin Mickey cium Active benzonatate 200 mg oral capsule (20 sources) Non-narcotic Antitussive Start: 08-25-2024 End: 01-30-2025 Benzonatate 200 mg capsule Discontinued 200 MG PO 2-3 TIMES PER DAY as needed for cough August 25, 2024 1:00am September 29, 2024 3:17pm Start: 08-01-2023 take 1 capsule by [facility] every eight hours Benzonatate 200 MG 1 capsule Orally Three times a day for 10 day(s) Aug, Active bifidobacterium infantis 4 m g oral capsule (20 sources) Align - as direc janell Orally Not-Taking calcium chloride 0.001 meq/m l / glucose 50 mg/ml / potassium chloride 0.004 meq/ml / sodium chloride 0.103 meq/ml / sodium lactate 0.028 meq/ml injectable solution (2 sources) Start: 03-26-2025 End: 03-29-2025 IntraVENous, at 50 mL/hr, CONTINUOUS, Starting on Mandy 03/26/25 at 1830 Start: 03-24-2025 End: 03-25-2025 IntraVENous, at 125 mL/hr, C ONTINUOUS, Starting on Sun03/24/25 at 1630, Post-op calcium chloride 0.0014 meq/ml / potassium chloride 0.004 meq/ml / sodium chloride 0.103 meq/ml / sodium lactate 0.028 meq/ml injectable solution (1 source) Start: 03-25-2025 End: 03-26-2025 IntraVENous, at 75 mL/hr, CONTINUOUS, Starting on Sun03/25/25 at 0945 cefadroxil 500 mg oral capsule (15 sources) Cephalosporin Antibacterial Start: 08-30-2023 take 1 capsule by mouth every twelve hours Cefadroxil 500 MG 1 tablet Orally every 12 hrs for 7 days MED TO BED UPON DISCHARGE DOS: 09/03/23 Aug, Not-Taking/PRN diclofenac sodium 75 mg delayed release oral tablet (20 sources) Nonsteroidal Anti-inflammatory Drug Start: 12-21-2023 End: 08-27-2024 take 1 tablet by mouth twice daily Diclofenac Sodium 75 mg tablet,delayed release (DR/EC) Discontinued 0 .ROUTE .COMPLEX 180 March 11, 2024 9:07am August 27, 2024 1:40pm TAKE 1 TABLET BY MOUTH TWICE DAILY Start: 08-28-2023 End: 01-30-2025 take 1 tablet by mouth twice daily Diclofenac Sodium 75 mg tablet,delayed release (DR/EC) Discontinued 75 MG PO Twice daily November 22, 2023 1:00am December 21, 2023 3:38pm Diclofenac Activ e 1 ml diphenhydrAMINE hydrochloride 50 mg/ml cartridge (1 source) Histamine-1 Receptor Antagonist Start: 03-24-2025 12.5 mg, IntraVENous, ONCE PRN, 1 dose, Starting on Sun03/24/25 at 1605, Until Discontinued, Itching, PACU only doxycycline hyclate 100 mg oral tablet (20 sources) Tetracycline-clas s Drug Start: 02-09-2025 End: 03-05-2025 take 1 tablet by mouth twice daily Doxycycline Hyclate 100 mg tablet Discontinued 100 MG PO Twice daily February 18, 2025 10:15am March 05, 2025 1:58pm Start: 12-26-2023 End: 02-21-2024 take 1 capsule by mouth twice daily Doxycycline Monohydrate 100 mg capsule Discontinued 100 MG PO Twice daily 20 07December 26, 2023 12:00am February 21, 2024 10:19am Start: 10-19-2019 take 1 capsule by [facility] every twelve hours Doxycycline Monohydrate 100 MG 1 capsule Orally every 12 hrs for 7 days Oct, Not-Taking 0.3 ml enoxaparin sodium 100 mg/ml prefilled syringe (1 source) Low Molecular Weight Heparin Start: 03-24-2025 inject 30 mg by subcutaneous injection twice daily 30 mg, SubCUTAneous, 2 times daily, First dose on Sun03/24/25 at 2100, Until Discontinued, Indication of Use: Prophylaxis-DVT/PE, Administer by deep subCUTAneous injection with pt lying down. Alternate injection sites on abdominal wall. Do not rub site after injection. Check with provider prior to any invasive procedure., Post-op 1 ml fentaNYL 0.05 mg/ml injection (1 source) Opioid Agonist Start: 03-24-2025 50 mcg, IntraVENous, EVERY 10 MIN PRN, 4 doses, Starting on Sun03/24/25 at 1605, Until Discontinued, Pain Moderate (4-6), allowed for higher pain score per patient request, Phase I - Initial therapy for moderate pain., PACU only 1 ml haloperidol 5 mg/ml prefilled syringe (1 source) Typical Antipsychotic Start: 03-24-2025 inject 2 mg by intramuscular injection every six hours as needed 2 mg, IntraMUSCular, EVERY 6 HOURS PRN, Starting on Sun03/24/25 at 1621, Until Discontinued, Agitation, IM route of administration preferred. Because of the risk of TdP and QT prolongation, ECG monitoring is recommended if haloperidol is given IV. 1 ml hydrALAZINE hydrochloride 20 mg/ml injection (1 source) Arteriolar Vasodilator Start: 03-26-2025 10 mg, IntraVENous, EVERY 6 HOURS PRN, Starting on Mandy 03/26/25 at 1023, Until Discontinued, SBP > 160 0.5 ml HYDROmorphone hydrochloride 1 mg/ml prefilled syringe (3 sources) Opioid Agonist Start: 03-24-2025 End: 03-24-2025 take 1 dose by mouth every hour 1 mg, IntraVENous, ONCE, 1 dose, On Sun03/24/25 at 1645, If oral and IV narcotics ordered, use oral first and only use IV if oral is ineffective or cannot take oral. Do Not give oral and IV within 1 hour of each other unless specifically ordered. Start: 03-24-2025 End: 03-24-2025 1 dose, Starting on 03/24 at 1624, Until Sun03/24/25 at 1625, Angélica Easley: cabinet override, Angélica Easley: cabinet override Start: 03-24-2025 0.5 mg, IntraV ENous, EVERY 10 MIN PRN, 4 doses, Starting on Sun03/24/25 at 1605, Until Discontinued, Pain Severe (7-10), Phase I - Initial therapy for severe pain., PACU only HYDROmorphone (DILAUDID) 1 mg/mL ASSOCIATE ARTISTIC DIRECTOR (1 source) Start: 03-24-2025 End: 03-29-2025 Patient Bolus (ASSOCIATE ARTISTIC DIRECTOR Dose): 0.2 mg, Patient Bolus Lockout Interval: 10 Minutes, Continuous Dose: 0 mg/hr, One Hour Dose Limit: 1 mg, Loading Dose: 0 mg, IntraVENous, CONTINUOUS, Starting on Sun03/24/25 at 1615 insulin lispro 100 unt/ml injectable solution (1 source) Insulin Analog Start: 03-28-2025 0-16 Units, SubCUTAneous, 4 TIMES DAILY BEFORE MEALS & NIGHTLY, First dose (after last modification) on Sun03/28/25 at 1615, Until Discontinued, High Dose Corrective Algorithm Glucose: Dose: 70-179 No Insulin 180-249 4 Units 250-299 8 Units 300-349 12 Units Over 349 16 Units and notify physician Administer as soon as possible within 60 minutes of last blood glucose check levothyroxine sodium 0.075 mg oral tablet (20 sources) l-Thyroxine Start: 03-27-2025 take 75 ug by mouth once daily before breakfast 75 mcg, Oral, DAILY BEFORE BREAKFAST, First dose on Sun03/27/25 at 0700, Until Discontinued, Tube feeding (TF) interaction, obtain physician order to manage, recommend holding TF for 30 minutes before and after dose. Start: 01-12-2025 take 1 tablet by krysten th in the morning Levothyroxine 75 mcg tablet Active 0 .ROUTE .COMPLEX 90 January 12, 2025 2:44pm TAKE 1 TABLET BY MOUTH IN THE MORNING ON AN EMPTY STOMACH Complies with drug therapy Start: 01-12-2025 take 1 tablet by krysten th in the morning Levothyroxine 75 mcg tablet Active 0 .ROUTE .COMPLEX 90 January 12, 2025 2:44pm TAKE 1 TABLET BY MOUTH IN THE MORNING ON AN EMPTY STOMACH Start: 12-02-2024 End: 01-12-2025 take 1 tablet by mouth once daily in the morning Levothyroxine 75 mcg tablet Discontinued 75 MCG PO Every morning December 02, 2024 1:00am January 12, 2025 2:45pm TAKE 1 TABLET BY MOUTH ONCE DAILY IN THE MORNING ON AN EMPTY STOMACH Start: 07-03-2024 End: 12-02-2024 take 1 tablet by mouth once daily in the morning Levothyroxine 75 mcg tablet Discontinued 0 .ROUTE .COMPLEX July 03, 2024 2:03pm December 02, 2024 5:04pm TAKE 1 TABLET BY MOUTH ONCE DAILY IN THE MORNING ON AN EMPTY STOMACH Start: 11-21-2023 End: 07-03-2024 take 1 tablet by mouth once daily in the morning Levothyroxine 50 mcg tablet Discontinued 0 .ROUTE .COMPLEX June 10, 2024 8:46am July 03, 2024 2:03pm TAKE 1 TABLET BY MOUTH ONCE DAILY IN THE MORNING ON AN EMPTY STOMACH Start: 01-19-2023 End: 11-21-2023 take 1 tablet by mouth once daily in the morning Levothyroxine 50 mcg tablet Discontinued 50 MCG PO Every morning August 28, 2023 1:00am November 21, 2023 1:46pm Start: 01-19-2023 levothyroxine (Synthroid, Levoxyl) 50 MCG tablet Take 75 mcg by mouth in the morning. Take before meals. 01/19/2023 Active Start: 01-17-2023 take 1 tablet by krysten [...] a day for 30 days Nov, Active loratadine 10 mg oral tablet (20 sources) Start: 12-02-2024 End: 02-03-2025 take 1 tablet by mouth once daily in the morning Loratadine (Claritin) 10 mg tablet Discontinued 10 MG PO Every morning December 02, 2024 1:00am February 03, 2025 10:16am End: 03-24-2025 take 1 tablet by mouth once daily loratadine (CLARITIN REDITABS) 10 MG dissolvable tablet Take 1 tablet by mouth daily 03/24/2025 Discontinued (LIST CLEANUP) 24 hr loratadine 10 mg / pseudoephedrine [...] needed for allergy symptoms December 26, 2023 12:00am September 29, 2024 3:17pm take 10-240 mg by mouth once as needed Claritin-D 24 Hour 10-240 MG 1 tablet as needed Orally prn Active 1 ml meperidine hydrochloride 25 mg/ml cartridge (1 source) Opioid Agonist Start: 03-24-2025 12.5 mg, IntraVENous, ONCE PRN, 1 dose, Starting on Sun03/24/25 at 1605, Until Discontinued, Shivering, Shivering,, PACU only methylPREDNISolone 4 mg oral tablet (4 sources) Corticosteroid Start: 10-19-2019 Medrol (Wei) 4 MG half of daily dose in the morning with food and the rest at night with food Orally Oct, Not-Taking 2 ml metoclopramide 5 mg/ml prefilled syringe (1 source) Dopamine-2 Receptor Antagonist Start: 03-24-2025 10 mg, IntraVENous, ONCE PRN, 1 dose, Starting on Sun03/24/25 at 1605, Until Discontinued, Nausea, Secondary antiemetic therapy if not given intraoperatively. , PACU only 24 hr mirabegron 50 mg extended release oral tablet (11 sources) beta3-Adrenergic Agonist Start: 02-10-2025 End: 04-07-2025 take 1 tablet by mouth once daily Mirabegron (Myrbetriq) 50 mg tablet extended release 24 hr Discontinued 50 MG PO Daily February 10, 2025 12:00am April 07, 2025 12:08pm Start: 02-03-2025 End: 08-02-2025 take 1 tablet by mouth every twenty-four hours in the morning mirabegron (MYRBETRIQ) 50 mg tablet extended release 24 hr Take 1 tablet (50 mg total) by mouth in the morning for 180 days. 30 tablet 5 02/03/2025 05/06/2025 Discontinued morphine sulfate 15 mg extended release oral tablet (15 sources) Opioid Agonist Start: 08-30-2023 take 1 tablet by mouth every twelve hours as needed for pain Morphine Sulfate ER 15 MG 1 tablet for breakthrough pain only Orally every 12 hrs for 5 days MED TO BED UPON DISCHARGE DOS: 09/03/23 Aug, Not-Taking/PRN 2 ml ondansetron 2 mg/ml injection (20 sources) Serotonin-3 Receptor Antagonist Start: 03-24-2025 4 mg, IntraVENous, ONCE PRN, 1 dose, Starting on Sun03/24/25 at 1605, Until Discontinued, Nausea, Initial antiemetic therapy., PACU only Start: 12-15-2024 End: 12-19-2024 take 1 tablet by mouth every eight hours as needed for nausea Ondansetron Hcl 4 mg tablet Discontinued 4 MG PO Every 8 hours as needed for nausea 9 3 December 15, 2024 8:46am December 19, 2024 9:48am Start: 08-30-2023 take 1 tablet by krysten th three times daily as needed for nausea Ondansetron HCl 8 MG 1 tablet as needed for nausea Orally Three times a day for 10 days MED TO BED UPON DISCHARGE DOS: 09/03/23 Aug, Not-Taking/PRN oxyCODONE hydrochloride 5 mg oral tablet (20 sources) Opioid Agonist Start: 08-30-2023 take 1 tablet by mouth every four hours as needed for pain oxyCODONE HCl 5 MG 1 tablet as needed for pain Orally every 4 hrs for 10 days MED TO BED UPON DISCHARGE DOS: 09/03/23 Aug, Not-Taking/PRN Start: 12-02-2021 End: 01-30-2025 take 1 tablet by mouth every six hours as needed for pain Oxycodone 5 mg tablet Discontinued 5 MG PO Every 6 hours as needed for pain 20 7 March 15th, 2025 March 21st, 2025 9:48am pantoprazole 40 mg delayed release oral tablet (20 sources) Proton Pump Inhibitor Start: 07-08-2024 take 1 tablet by mouth [...] TABLET BY MOUTH DAILY Start: 11-21-2023 End: 12-02-2024 take 1 tablet by mouth once daily Pantoprazole 40 mg tablet,delayed release (DR/EC) Discontinued 0 .ROUTE .COMPLEX October 15, 2024 1:21pm December 02, 2024 5:00pm TAKE 1 TABLET BY MOUTH DAILY Start: [...] DOS: 09/03/23 Aug, Active Start: 08-16-2020 End: 01-30-2025 take 1 tablet by mouth once daily in the morning Pantoprazole 40 mg tablet,delayed release (DR/EC) Discontinued 40 MG PO Every morning August 28, 2023 1:00am November 21, 2023 1:47pm take 1 tablet by krysten th every twenty-four hours Pantoprazole Sodium 20 MG 1 tablet Orally Once a day Active Pantoprazole 40 mg tablet,delayed release (DR/EC) (20 sources) Start: 10-15-2024 End: 12-02-2024 take 1 tablet by mouth once daily Pantoprazole 40 mg tablet,delayed release (DR/EC) Discontinued 0 .ROUTE .COMPLEX October 15, 2024 1:21pm December 02, 2024 5:00pm TAKE 1 TABLET BY MOUTH DAILY Start: 10-15-2024 take 1 tablet by krysten th once daily Pantoprazole 40 mg tablet,delayed release (DR/EC) Active 0 .ROUTE .COMPLEX October 15, 2024 12:21pm TAKE 1 TABLET BY MOUTH DAILY Start: 07-08-2024 End: 10-15-2024 take 1 tablet by mouth once daily Pantoprazole 40 mg tablet,delayed release (DR/EC) Discontinued 0 .ROUTE .COMPLEX July 08, 2024 8:28am October 15, 2024 1:21pm TAKE 1 TABLET BY MOUTH DAILY Start: 07-08-2024 End: 10-15-2024 take 1 tablet by mouth once daily Pantoprazole 40 mg tablet,delayed release (DR/EC) Discontinued 0 .ROUTE .COMPLEX July 08, 2024 7:28am October 15, 2024 12:21pm TAKE 1 TABLET BY MOUTH DAILY Start: 07-08-2024 take 1 tablet by krysten th once daily Pantoprazole 40 mg tablet,delayed release (DR/EC) Active 0 .ROUTE .COMPLEX July 08, 2024 7:28am TAKE 1 TABLET BY MOUTH DAILY Start: 05-12-2024 End: 07-08-2024 take 1 tablet by mouth once daily Pantoprazole 40 mg tablet,delayed release (DR/EC) Discontinued 0 .ROUTE .COMPLEX May 12, 2024 11:42am July 08, 2024 8:28am TAKE 1 TABLET BY MOUTH DAILY Start: [...] 8:07am TAKE 1 TABLET BY MOUTH DAILY 100 ml potassium chloride 0. 1 meq/ml injection (1 source) Start: 03-24-2025 10 mEq, IntraV ENous, PRN, Starting on Sun03/24/25 at 1605, Until Discontinued, at 100 mL/hr, Potassium Replacement, K Lab Replacement Action 3.1-3.5 10 mEq IVPB x 4 doses (40 mEq Total) 2.7-3.0 10 mEq IVPB x 6 doses (60 mEq Total) 5 ml sodium chloride 9 mg/ml injection (7 sources) Start: 03-24-2025 5-40 mL, Intra VENous, EVERY 12 HOURS SCHEDULED (2 times per day), First dose on Sun03/24/25 at 2100, Until Discontinued, For Line Patency: Peripheral IV = 5 mL; Midline or Central Line = 10 mL/lumen. If following IV push medication, administer flush at same rate as the IV push. Flush volume is determined by type of infusion therapy being given. For non-viscous solutions use: Peripheral IV = 5 mL Midline or Central Line = 10 mL/lumen For viscous solutions (i.e. blood components, parenteral nutrition, contrast media, or after obtaining blood sample) use: Peripheral IV = 10 mL Midline or Central Line = 20 mL/lumen, Post-op Start: 03-24-2025 take 1 mL intravenou sly every hour as needed IntraVENous, at 100 mL/hr, PRN, If patient receiving piggyback infusions without ordered maintenance IV fluids or with frequent/long duration piggyback infusions, Starting on Sun03/24/25 at 1605, Administer at the same rate as the piggyback being infused., PACU only Start: 03-24-2025 5-40 mL, Intra VENous, PRN, Starting on Sun03/24/25 at 1605, Until Discontinued, Line Care, After every IV line use, For Line Patency: Peripheral IV = 5 mL; Midline or Central Line = 10 mL/lumen. If following IV push medication, administer flush at same rate as the IV push. Flush volume is determined by type of infusion therapy being given. For non-viscous solutions use: Peripheral IV = 5 mL Midline or Central Line = 10 mL/lumen For viscous solutions (i.e. blood components, parenteral nutrition, contrast media, or after obtaining blood sample) use: Peripheral IV = 10 mL Midline or Central Line = 20 mL/lumen, Post-op Start: 03-24-2025 End: 03-24-2025 IntraVENous, at 5-250 mL/hr, PRN, if patient receiving piggyback infusions and maintenance fluids are not ordered, Starting on Sun03/24/25 at 1605, For piggyback infusion, administer at same rate as piggyback for a total of 25 mL. Enter 25 mL into dose field and piggyback rate into rate field of order. If piggyback is infusing at a rate less than 100 mL/hr, enter 25 mL into dose field and 100 mL/hr into rate field of order., Post-op sulfamethoxazole 800 mg / trimethoprim 160 mg oral tablet (20 sources) Dihydrofolate Reductase Inhibitor Antibacterial, Sulfonamide Antimicrobial Start: 11-21-2023 End: 12-26-2023 take 1 tablet by mouth twice daily Sulfamethoxazole-Trimethoprim 800-160 mg tablet Discontinued 1 TAB PO Twice daily November 21, 2023 1:00am December 26, 2023 8:55am End: 01-30-2025 sulfamethoxazole-trimethopri m (BACTRIM DS) 800-160 mg per tablet sulfamethoxazole 800 mg-trimethoprim 160 mg tablet 01/30/2025 Discontinued Tirzepatide (20 sources) Start: 02-21-2024 End: 02-21-2024 [...] Oral, Daily Start Date: 08/18/20 Status: Ordered zonisamide 50 mg oral capsule (13 sources) Anti-epilept ic Agent Start: 04-07-2025 End: 06-16-2025 take 1 capsule by mouth twice daily Zonisamide 50 mg capsule Discontinued 50 MG PO Twice daily April 07, 2025 12:05pm June 16, 2025 11:33am Start: 02-12-2025 End: 04-07-2025 take 1 capsule by mouth once daily Zonisamide 50 mg capsule Discontinued 50 MG PO Daily March 05, 2025 12:00am April 07, 2025 12:06pm Problems Active Problems Problem Classification Problem Date Documented Da te Episodic/Chronic Acquired foot deformities (17 sources) Other acquired [...] Episodic Chronic obstructive pulmonary disease and bronchiectasis (20 sources) Bronchitis; Translations: [Bronchitis, not specified as acute or chronic] 12-26-2023 Episodic Chronic ulcer of skin (11 sources) Non-pressure chronic ulcer of left heel and midfoot with fat layer exposed; Translations: [Non-pressure chronic ulcer of left heel and midfoot with necrosis of bone] Onset: 2 Chronic Coagulation and hemorrhagic disorders (20 sources) Finding related to bruising; Translations: [Spontaneous ecchymoses] 06-17-2024 Episodic Coma; stupor; and brain damage (20 sources) Excessive daytime sleepiness - normal night sleep; Translations: [Somnolence] Onset: 3 Episodic Complications of surgical procedures or medical care (4 sources) Disruption of internal operation (surgical) wound, not elsewhere classified, initial encounter; Translations: [Dehiscence of surgical wound] Onset: 2 Episodic Deficiency and other anemia (20 sources) Anemia; Translations: [Anemia, unspecified] 07-03-2024 Episodic Deficiency and other anemia (2 sources) Anemia, unspecified; Translations: [Anemia, unspecified] 08-04-2024 Episodic [...] Mixed urinary incontinence; Translations: [Mixed incontinence] Onset: 5 Chronic Genitourinary symptoms and ill-defined conditions (5 sources) Dysuria; Translations: [Dysuria] Onset: 7 12-01-2024 Episodic Headache; including migraine (20 sources) Migraine; Translations: [...] of food 08-18-2020 Episodic Nonspecific chest pain (20 sources) Non-cardiac chest pain; Translations: [Other chest pain] Onset: 4 11-04-2024 Episodic Nutritional deficiencies (20 sources) Vitamin D [...] following joint replacement surgery] Chronic Other aftercare (13 sources) Aftercare following joint replacement surgery; Translations: [Aftercare following joint replacement] Onset: 4 Chronic Other aftercare (2 sources) Other exterminator termite (current) drug therapy; Translations: [OTH DETENTION CURRENT DRUG THERAPY] Onset: 3 Episodic Other circulatory disease (3 sources) Elevated blood-pressure reading without diagnosis of hypertension; Translations: [Elevated blood-pressure reading, without diagnosis of hypertension] Episodic Other circulatory disease (20 sources) Pulmonary congestion ; Translations: [Other specified [...] hip joint] Chronic Other connective tissue disease (8 sources) Presence of right artificial hip joint; Translations: [Hip joint replacement] Onset: 4 Chronic Other connective tissue disease (20 sources) History of total hip arthroplasty; Translations: [Presence [...] signs involving the musculoskeletal system] Episodic Other connective tissue disease (10 sources) Trochanteric bursitis; Translations: [Trochanteric bursitis, right hip] 03-05-2025 Episodic Other connective tissue disease (2 sources) Trochanteric bursitis, right hip; Translations: [Enthesopathy of hip region] 03-05-2025 Episodic Other diseases of bladder and urethra (2 sources) Overactive bladder; Translations: [Overactive bladder] 01-30-2025 Chronic Other female genital disorders (3 sources) Noninflammatory disorder of the vagina; Translations: [Other specified noninflammatory disorders of vagina] Episodic Other female genital disorders (2 sources) Polyp of cervix; Translations: [Polyp of cervix uteri] 12-01-2024 Episodic Other gastrointestinal disorders (3 sources) Irritable bowel syndrome characterized by constipation; Translations: [Irritable bowel syndrome with constipation] Onset: 7 Chronic Other gastrointestinal disorders (20 sources) Constipation; Translations: [Constipation, unspecified] 11-28-2023 Episodic Other gastrointestinal disorders (1 source) History of rectal bleeding 03-04-2021 Episodic Other gastrointestinal disorders (20 sources) Abdominal bloating; Translations: [Abdominal distension (gaseous)] 08-12-2024 Episodic Other gastrointestinal disorders (2 sources) Abdominal distension (gaseous); Translations: [Flatulence, eructation, and gas pain] 08-04-2024 Episodic Other gastrointestinal disorders (5 sources) Constipation, unspecified; Translations: [Constipation, unspecified] 12-19-2024 Episodic Other inflammatory condition of skin (3 [...] unspecified] 12-26-2023 Episodic Other lower respiratory disease (20 sources) Solitary nodule of lung; Translations: [Solitary [...] obesity due to excess calories] Chronic Other skin disorders (1 source) Corns and callosities; Translations: [CORNS AND CALLOSITIES] Onset: 3 Episodic Other skin disorders (5 sources) Ingrowing nail; Translations: [INGROWING NAIL] Onset: 3 Episodic Other skin disorders (1 source) Other nail disorders; Translations: [OTHER NAIL DISORDERS] Onset: 3 Episodic Other upper respiratory disease (8 sources) Allergic rhinitis; Translations: [Allergic rhinitis, cause unspecified] Onset: 3 08-16-2020 Chronic Other upper respiratory disease (3 sources) Seasonal allergic rhinitis; Translations: [Other seasonal allergic rhinitis] Onset: 8 Chronic Other upper respiratory disease (20 sources) Change in voice; Translations: [Unspecified voice [...] caused by tuberculosis or sexually transmitted disease) (20 sources) Pneumonia; Translations: [Pneumonia, unspecified organism] 09-29-2024 Episodic Residual codes; unclassified (20 sources) Obstructive sleep apnea syndrome; Translations: [Obstructive sleep apnea (adult) (pediatric)] Onset: 8 11-28-2023 Chronic Residual codes; unclassified (14 sources) Obstructive sleep apnea (adult) (pediatric); Translations: [Obstructive sleep apnea (adult)(pediatric)] Onset: 3 Chronic Residual codes; unclassified (1 source) Presence of functional implant, unspecified; Translations: [PRESENCE FUNCTIONAL IMPLANT UNS] Onset: 2 Chronic Residual codes; unclassified (3 sources) Sleep apnea; Translations: [Sleep apnea, unspecified] Chronic Residual codes; unclassified (6 sources) Postmenopausal state; Translations: [Asymptomatic menopausal state] 08-16-2020 Episodic Residual codes; unclassified (3 sources) Family history of diabetes mellitus; Translations: [Family history of diabetes mellitus] Episodic Residual codes; unclassified (3 sources) Tobacco user; Translations: [Tobacco use] Episodic Residual codes; unclassified (20 sources) Family history of Von Willebrand disease; Translations: [Family history of diseases of the blood and blood-forming organs and certain disorders involving the immune mechanism] 06-16-2024 Episodic Residual codes; unclassified (3 sources) Family history of diseases of the blood and blood-forming organs and certain disorders involving the immune mechanism; Translations: [Family history of other blood disorders] 06-16-2024 Episodic Residual codes; unclassified (1 source) Unprotected sexual intercourse; Translations: [High risk heterosexual behavior] 01-30-2025 Episodic Residual codes; unclassified (10 sources) Edema of left lower limb; Translations: [Localized edema] 02-09-2025 Episodic Residual codes; unclassified (4 sources) Localized edema; Translations: [Edema] 02-09-2025 Episodic Residual codes; unclassified (8 sources) History of hernia repair; Translations: [Other specified postprocedural states] 04-07-2025 Episodic Spondylosis; intervertebral disc disorders; other back problems (20 sources) Arthritis of lumbosacral spine; Translations: [Spondylosis without myelopathy or radiculopathy, lumbosacral region] Onset: 1 Resolved: 1 Chronic Thyroid disorders (20 sources) Hyperthyroidism; Translations: [Hypothyroidism] [...] EXPOS COVID-19] Onset: 2 Unclassified (1 source) New Patient Onset: 5 Unclassified (2 sources) Call office as needed Urinary tract infections (6 sources) Urinary tract infectious disease; Translations: [Urinary tract infection, site not specified] Onset: 7 Episodic Varicose veins of lower extremity (7 sources) Asymptomatic varicose veins of unspecified lower extremity; Translations: [Pain co-occurrent and due to varicose veins of bilateral legs] Onset: 3 Episodic Past or Other Problems Problem Classification Problem Date Documented Da te Episodic/Chronic Abdominal hernia (20 sources) Diaphragmatic hernia without obstruction or gangrene; Translations: [Paraesophageal hernia] Onset: 12-07-2022 11-04-2024 Episodic Abdominal pain (20 sources) Pelvic and perineal pain; Translations: [Right upper quadrant pain] Onset: 12-04-2016 Episodic Acute and unspecified renal failure (1 source) Acute kidney failure, unspecified; Translations: [ACUTE KIDNEY FAILURE UNSPECIFIED] Onset: 05-16-2022 Episodic Fever of unknown origin (4 sources) Fever, unspecified; Translations: [FEVER UNSPECIFIED] Onset: 04-25-2022 Episodic Immunizations and screening for infectious disease [...] soft tissue, unspecified] Onset: 06-07-2017 Episodic Other connective tissue disease (4 sources) Dysfunction of posterior tibial tendon; Translations: [Posterior tibial tendinitis, unspecified leg] Onset: 12-07-2021 12-07-2021 Episodic Other female genital disorders (4 sources) Cyst of cervix; Translations: [Other specified noninflammatory disorders of cervix uteri] Onset: 12-01-2024 12-01-2024 Episodic Other gastrointestinal disorders (1 source) Personal history of other diseases of the digestive system; Translations: [Personal history of other diseases of the digestive system] Onset: 02-16-2025 Episodic Other liver diseases (3 sources) Elevated levels of transaminase & lactic acid dehydrogenase; Translations: [Nonspecific elevation of levels of transaminase or lactic acid dehydrogenase (LDH)] Onset: 12-10-2016 Episodic Other lower respiratory disease (2 sources) Shortness of breath; Translations: [Shortness of breath] Onset: 07-25-2024 Episodic Other nervous system disorders (3 sources) Paresthesia; Translations: [Paresthesia of skin] Onset: 12-11-2017 Episodic Other nervous system disorders (4 sources) Abnormal gait; Translations: [Unsteadiness on feet] Onset: 12-07-2021 12-07-2021 Episodic Other non-traumatic joint disorders (6 sources) [...] pelvic region and thigh] Onset: 05-15-2016 Episodic Other screening for suspected conditions (not mental disorders or infectious disease) (20 sources) Screening for malignant neoplasm of colon done; Translations: [Encounter for screening for malignant neoplasm of colon] Onset: 06-06-2022 Episodic Residual codes; unclassified (1 source) Asymptomatic menopausal state; Translations: [ASYMPTOMATIC MENOPAUSAL STATE] Onset: 12-07-2022 Episodic Residual codes; unclassified (1 source) Family history of malignant neoplasm of other organs or systems; Translations: [FAM HX MALIG NEOPLASM OTH ORGN/SYS] Onset: 11-05-2022 Episodic Residual codes; unclassified (4 sources) History of operative procedure on foot; Translations: [Other specified postprocedural states] Onset: 12-07-2021 12-07-2021 Episodic Residual codes; unclassified (1 source) High risk heterosexual behavior; Translations: [High risk heterosexual behavior] Onset: 01-28-2025 Episodic Screening and history of mental health [...] and abscess of trunk] Onset: 11-28-2018 Episodic Spondylosis; intervertebral disc disorders; other back problems (20 sources) Low back pain; Translations: [Dorsalgia, unspecified] Onset: 12-01-2014 Resolved: 06-23-2021 Episodic Sprains and strains (3 sources) Neck sprain; Translations: [Neck sprain and strain] Onset: 01-04-2015 Episodic Results Test Name Value Interpretation Reference Range Facility NM gastric emptying studyon 05-29-2025 NM gastric emptying study [facility] [place] [place] [address] Nuclear Medicine Report Signed Patient: Nicol Smith MR#: [id number] 9 : 1960 Acct:[id number] Age/Sex: 65 / F ADM Date: 05/29/25 Loc: [place] Room: Type: [facility] CLI Attending Dr: Paulino Hughes MD Copies to: MD Anna Lott MD Ordering Provider: Paulino Hughes MD Date of Service: 05/29/25 NM/NM gastric emptying study: R13.10 GASTRIC EMPTYING STUDY: CLINICAL HISTORY: Dysphagia. History of paraesophageal hernia with repair. COMPARISON: CT 02/16/2025 and 03/02/2025. Esophagram 05/21/2025 Following the oral ingestion of 1.0 mCi Tc 99m labeled sulfur colloid mixed with eggs along with toast, typically and water, imaging of the abdomen was performed out to 4 hours. Patient's prior imaging shows a hiatal hernia. There is retained radioactive food debris within the hiatal hernia which is also included with the measurements of the intra-abdominal portion of the stomach. Gastric retention measurements are as follows: 30 minutes 86% 1 hour 83% 2 hours 82% 3 hours 80% 4 hours 79% NM/NM gastric emptying study IMPRESSION: HIATAL HERNIA. GASTROPARESIS. Impression dictated by: Anna Hull M.D. 05/29/2025 1:07 PM Dictation Location: [facility] Transcribed By: [facility] 05/29/25 1307 Dictated By: Anna Hull MD 05/29/25 1301 Signed By: 05/29/25 1307 Normal [facility] [place] esophaguson 05-21-2025 [place] esophagus [facility] [place] [address] [place] [address] Fluoroscopy Report Signed Patient: Nicol Smith MR#: [id number] 9 : 1960 Acct:[id number] Age/Sex: 65 / F ADM Date: 05/21/25 Loc: XD Room: Type: [facility] Attending Dr: Paulino Hughes MD Copies to: Paulino Hughes MD Ordering Provider: Paulino Hughes MD Date of Service: 05/21/25 FL/NH esophagus: R13.10 Z98.890 Single contrast esophagram INDICATION: Dysphagia Status post paraesophageal hernia. TECHNIQUE: 70.97 mGy dose Findings: Unremarkable contractility and motility of the proximal to mid esophagus. Oropharyngeal space. Distal esophagus is distended. There is high-grade narrowing and stricturing at the gastroesophageal junction. Delayed imaging demonstrated no significant change in the distal contrast pooling within the esophagus for at least 9 minutes and examination was stopped at this point FL/FL esophagus IMPRESSION: High-grade narrowing of the GE junction Impression dictated by: Tony Parra M.D. 05/21/2025 12:13 PM Dictation Location: [facility]26 Transcribed By: SILVIA 05/21/25 121 Dictated By: Tony Parra MD 05/21/25 1208 Signed By: 05/21/25 1213 Normal [facility] Fluoroscopy reportOrdered By : Tony Parra on 05-21-2025 RF Unspecified body region Views [facility] [place] [address] Fluoroscopy Report Signed Patient: Nicol Smith MR#: [id number] : 1960 Acct:[id number] Age/Sex: 65 / F ADM Date: 5 Loc: XD Room: Type: [facility] Attending Dr: Paulino Hughes MD Copies to: Paulino Hughes MD~ Ordering Provider: Paulino Hughes MD Date of Service: 05/21/25 FL/FL esophagus: R13.10 Z98.890 Single contrast esophagram INDICATION: Dysphagia Status post paraesophageal hernia. TECHNIQUE: 70.97 mGy dose Findings: Unremarkable contractility and motility of the proximal to mid esophagus. Oropharyngeal space. Distal esophagus is distended. There is high-grade narrowing and stricturing at the gastroesophageal junction. Delayed imaging demonstrated no significant change in the distal contrast pooling within the esophagus for at least 9 minutes and examination was stopped at this point FL/FL esophagus IMPRESSION: High-grade narrowing of the GE junction Impression dictated by: Tony Parra M.D. 05/21/2025 12:13 PM Dictation Location: [facility]26 Transcribed By: SILVIA 05/21/251212 Dictated By: Tony Parra MD 05/21/25 1208 Signed By: 05/21/25 Critical access hospital[facility] Work Phone: CBC W Auto Differential pane l (Bld)on 03-29-2025 Erythrocyte distribution width (RBC) [Ratio] 13 % 11.5 - 14.5 % [facility] Interpretation and review of laboratory results Abnormal [facility] MCHC (RBC) [Mass/Vol] 33.7 % 33.0 - 37.0 % [facility] Monocytes/100 WBC (Bld) 11 % [facility] Neutrophils (Bld) [#/Vol] 5 10*3/uL 1.4 - 6.5 K/uL [facility] RBC (Bld) [#/Vol] 4.1 10*6/uL [place] [facility] Segmented neutrophils/100 WBC (Bld) 65.5 % [facility] CBC With Platelet and Differ entialon 03-29-2025 Basophils (Bld) [#/Vol] 0.1 10*3/uL Normal 0.0-0.2 [facility] Comment on above: Performed By: #### C BCWD #### [facility] [address] [place] [address] Basophils/100 WBC (Bld) 0.7 % Normal [facility] Comment on above: Performed By: #### C BCWD #### [facility] [address] [place] [address] Eosinophils (Bld) [#/Vol] 0.3 10*3/uL Normal 0.0-0.7 [facility] Comment on above: Performed By: #### C BCWD #### [facility] [address] [place] [address] Eosinophils/100 WBC (Bld) 3.3 % Normal [facility] Comment on above: Performed By: #### C BCWD #### [facility] [address] [place] [address] Erythrocyte distribution width (RBC) [Ratio] 13.0 % Normal 11.5-14.5 [facility] Comment on above: Performed By: #### C BCWD #### [facility] [address] [place] [address] Hematocrit (Bld) [Volume fraction] 37.4 % Normal 37.0-47.0 [facility] Comment on above: Performed By: #### C BCWD #### [facility] [address] [place] [address] Hemoglobin (Bld) [Mass/Vol] 12.6 g/dL Normal 12.0-16.0 [facility] Comment on above: Performed By: #### C BCWD #### [facility] [address] [place] [address] Lymphocytes (Bld) [#/Vol] 1.5 10*3/uL Normal 1.0-4.8 [facility] Comment on above: Performed By: #### C BCWD #### [facility] [address] [place] [address] Lymphocytes/100 WBC (Bld) 19.1 % Normal [facility] Comment on above: Performed By: #### C BCWD #### [facility] [address] [place] [address] MCH (RBC) [Entitic mass] 30.7 pg Normal 27.0-31.3 [facility] Comment on above: Performed By: #### C BCWD #### [facility] [address] [place] [address] MCHC 33.7 % Normal 33.0-37.0 [facility] Comment on above: Performed By: #### C BCWD #### [facility] [address] [place] [address] MCV (RBC) [Entitic vol] 91.2 fL Normal 79.4-94.8 [facility] Comment on above: Performed By: #### C BCWD #### [facility] [address] [place] [address] Monocytes (Bld) [#/Vol] 0.8 10*3/uL Normal 0.2-0.8 [facility] Comment on above: Performed By: #### C BCWD #### [facility] [address] [place] [address] Monocytes/100 WBC (Bld) 11.0 % Normal [facility] Comment on above: Performed By: #### C BCWD #### [facility] [address] [place] [address] Neutrophils (Bld) [#/Vol] 5.0 10*3/uL Normal 1.4-6.5 [facility] Comment on above: Performed By: #### C BCWD #### [facility] [address] [place] [address] Neutrophils/100 WBC (Bld) 65.5 % Normal [facility] Comment on above: Performed By: #### C BCWD #### [facility] [address] [place] [address] Platelets (Bld) [#/Vol] 283 10*3/uL Normal 130-400 [facility] Comment on above: Performed By: #### C BCWD #### [facility] [address] [place] [address] RBC (Bld) [#/Vol] 4.10 10*6/uL Low 4.20-5.40 [facility] Comment on above: Performed By: #### C BCWD #### [facility] [address] [place] [address] WBC (Bld) [#/Vol] 7.7 10*3/uL Normal 4.8-10.8 [facility] Comment on above: Performed By: #### C BCWD #### [facility] [address] [place] [address] EKG Rhythm Stripon SY [facility] KM [facility] POCT Glucoseon 03-29-2025 Glucose [Mass/Vol] 106 mg/dL High 70 - 99 mg/dl [facility] Interpretation and review of laboratory results Abnormal [facility] Performed on ACCU-CHEK [facility] Glucose [Mass/Vol] 106 mg/dL Critically high 70-99 [facility] Comment on above: Performed By: #### P GLU #### [facility] [address] [place] [address] POC Performed on ACCU-CHEK Normal [facility] Comment on above: Performed By: #### P GLU #### [facility] [address] [place] [address] Glucose [Mass/Vol] 87 mg/dL 70 - 99 mg/dl [facility] Performed on ACCU-CHEK [facility] Glucose [Mass/Vol] 87 mg/dL Normal 70-99 [facility] Comment on above: Performed By: #### P GLU #### [facility] [address] [place] [address] POC Performed on ACCU-CHEK Normal [facility] Comment on above: Performed By: #### P GLU #### [facility] [address] [place] [address] Renal Function Panelon 03-29 Albumin [Mass/Vol] 3.3 g/dL Low 3.5 - 4.6 g/dL [facility] Anion gap [Moles/Vol] 9 mmol/L [facility] Calcium [Mass/Vol] 8.9 mg/dL 8.5 - 9.9 mg/dL [facility] Chloride [Moles/Vol] 106 mmol/L [facility] CO2 [Moles/Vol] 25 mmol/L [facility] Creatinine [Mass/Vol] 0.54 mg/dL 0.50 - 0.90 mg/dL [facility] GFR/1.73 sq M.predicted among non-blacks MDRD (S/P/Bld) [Vol rate/Area] 60 - PINF [facility] Comment on above: Pediatric calculator link https://www.kidney.org/professionals/kdoqi/gfr_calculatorped Effective Jul 03, 2022 These results are not intended for use in patients <18 years of age. eGFR results are calculated without a race factor using the 2020 CKD-EPI equation. Careful clinical correlation is recommended, particularly when comparing to results calculated using previous equations. The CKD-EPI equation is less accurate in patients with extremes of muscle mass, extra-renal metabolism of creatinine, excessive creatinine ingestion, or following therapy that affects renal tubular secretion. Glucose [Mass/Vol] 106 mg/dL High 70 - 99 mg/dL [facility] Interpretation and review of laboratory results Abnormal [facility] Phosphate [Mass/Vol] 3.3 mg/dL 2.3 - 4 .8 mg/dL [facility] Potassium [Moles/Vol] 3.7 mmol/L [facility] Sodium [Moles/Vol] 140 mmol/L [facility] Urea nitrogen [Mass/Vol] 7 mg/dL Low 8 - 23 mg/dL [facility] Albumin [Mass/Vol] 3.3 g/dL Low 3.5-4.6 [facility] Comment on above: Performed By: #### P GLU #### [facility] [address] [place] [address] Anion gap [Moles/Vol] 9 mmol/L Normal 9-15 [facility] Comment on above: Performed By: #### P GLU #### [facility] [address] [place] [address] Calcium [Mass/Vol] 8.9 mg/dL Normal 8.5-9.9 [facility] Comment on above: Performed By: #### P GLU #### [facility] [address] [place] [address] Chloride [Moles/Vol] 106 mmol/L Normal 95-107 [facility] Comment on above: Performed By: #### P GLU #### [facility] [address] [place] [address] CO2 [Moles/Vol] 25 mmol/L Normal 20-31 [facility] Comment on above: Performed By: #### P GLU #### [facility] [address] [place] [address] Creatinine [Mass/Vol] 0.54 mg/dL Normal 0.50-0.90 [facility] Comment on above: Performed By: #### P GLU #### [facility] [address] [place] [address] GFR >90.0 Normal >60 [facility] Comment on above: Result Comment: Frantz atric calculator link https://www.kidney.org/professionals/kdoqi/gfr_calculatorped Effective Jul 03, 2022 These results are not intended for use in patients <18 years of age. eGFR results are calculated without a race factor using the 2020 CKD-EPI equation. Careful clinical correlation is recommended, particularly when comparing to results calculated using previous equations. The CKD-EPI equation is less accurate in patients with extremes of muscle mass, extra-renal metabolism of creatinine, excessive creatinine ingestion, or following therapy that affects renal tubular secretion. Performed By: #### P GLU #### [facility] [address] [place] [address] Glucose [Mass/Vol] 106 mg/dL Critically high 70-99 [facility] Comment on above: Performed By: #### P GLU #### [facility] [address] [place] [address] Phosphate [Mass/Vol] 3.3 mg/dL Normal 2.3-4.8 [facility] Comment on above: Performed By: #### P GLU #### [facility] [address] [place] [address] Potassium [Moles/Vol] 3.7 mmol/L Normal 3.4-4.9 [facility] Comment on above: Performed By: #### P GLU #### [facility] [address] [place] [address] Sodium [Moles/Vol] 140 mmol/L Normal 135-144 [facility] Comment on above: Performed By: #### P GLU #### [facility] [address] [place] [address] Urea nitrogen [Mass/Vol] 7 mg/dL Low 8-23 [facility] Comment on above: Performed By: #### P GLU #### [facility] [address] [place] [address] CBC W Auto Differential pane l (Bld)on 03-28-2025 Basophils (Bld) [#/Vol] 0 10*3/uL 0.0 - 0.2 K/uL [facility] Interpretation and review of laboratory results Abnormal [facility] MCHC (RBC) [Mass/Vol] 33.9 % 33.0 - 37.0 % [facility] Segmented neutrophils/100 WBC (Bld) 68.4 % [facility] CBC With Platelet and Differ entialon 03-28-2025 Basophils (Bld) [#/Vol] 0.0 10*3/uL Normal 0.0-0.2 [facility] [facility] Comment on above: Performed By: #### C BCWD #### [facility] [address] [place] [address] Basophils/100 WBC (Bld) 0.6 % Normal [facility] Comment on above: Performed By: #### C BCWD #### [facility] [address] [place] [address] Eosinophils (Bld) [#/Vol] 0.2 10*3/uL Normal 0.0-0.7 [facility] Comment on above: Performed By: #### C BCWD #### [facility] [address] [place] [address] Eosinophils/100 WBC (Bld) 3.2 % Normal [facility] Comment on above: Performed By: #### C BCWD #### [facility] [address] [place] [address] Erythrocyte distribution width (RBC) [Ratio] 13.2 % Normal 11.5-14.5 [facility] Comment on above: Performed By: #### C BCWD #### [facility] [address] [place] [address] Hematocrit (Bld) [Volume fraction] 37.2 % Normal 37.0-47.0 [employer] Comment on above: Performed By: #### C BCWD #### [facility] [address] [place] [address] Hemoglobin (Bld) [Mass/Vol] 12.6 g/dL Normal 12.0-16.0 [employer] Comment on above: Performed By: #### C BCWD #### [facility] [address] [place] [address] Lymphocytes (Bld) [#/Vol] 1.2 10*3/uL Normal 1.0-4.8 [employer] Comment on above: Performed By: #### C BCWD #### [facility] [address] [place] [address] Lymphocytes/100 WBC (Bld) 18.7 % Normal [facility] [employer] Comment on above: Performed By: #### C BCWD #### [facility] [address] [place] [address] MCH (RBC) [Entitic mass] 30.6 pg Normal 27.0-31.3 [employer] Comment on above: Performed By: #### C BCWD #### [facility] [address] [place] [address] MCHC 33.9 % Normal 33.0-37.0 [facility] Comment on above: Performed By: #### C BCWD #### [facility] [address] [place] [address] MCV (RBC) [Entitic vol] 90.3 fL Normal 79.4-94.8 [employer] Comment on above: Performed By: #### C BCWD #### [facility] [address] [place] [address] Monocytes (Bld) [#/Vol] 0.6 10*3/uL Normal 0.2-0.8 [facility] Comment on above: Performed By: #### C BCWD #### [facility] [address] [place] [address] Monocytes/100 WBC (Bld) 8.8 % Normal [facility] Comment on above: Performed By: #### C BCWD #### [facility] [address] [place] [address] Neutrophils (Bld) [#/Vol] 4.3 10*3/uL Normal 1.4-6.5 [facility] Comment on above: Performed By: #### C BCWD #### [facility] [address] [place] [address] Neutrophils/100 WBC (Bld) 68.4 % Normal [facility] Comment on above: Performed By: #### C BCWD #### [facility] [address] [place] [address] Platelets (Bld) [#/Vol] 260 10*3/uL Normal 130-400 [facility] Comment on above: Performed By: #### C BCWD #### [facility] [address] [place] [address] RBC (Bld) [#/Vol] 4.12 10*6/uL Low 4.20-5.40 [facility] Comment on above: Performed By: #### C BCWD #### [facility] [address] [place] [address] WBC (Bld) [#/Vol] 6.3 10*3/uL Normal 4.8-10.8 [facility] Comment on above: Performed By: #### C BCWD #### [facility] [address] [place] [address] EKG Rhythm Stripon [facility] POCT Glucoseon 03-28-2025 Glucose [Mass/Vol] 88 mg/dL 70 - 99 mg/dl [facility] Performed on ACCU-CHEK [facility] Glucose [Mass/Vol] 88 mg/dL Normal 70-99 [facility] Comment on above: Performed By: #### P GLU #### [facility] [address] [place] [address] POC Performed on ACCU-CHEK [facility] Comment on above: Performed By: #### P GLU #### [facility] [address] [place] [address] Glucose [Mass/Vol] 90 mg/dL 70 - 99 mg/dl [facility] Performed on ACCU-CHEK [facility] Glucose [Mass/Vol] 90 mg/dL Normal 70-99 [facility] Comment on above: Performed By: #### P GLU #### [facility] [address] [place] [address] POC Performed on ACCU-CHEK [facility] Comment on above: Performed By: #### P GLU #### [facility] [address] [place] [address] Glucose [Mass/Vol] 98 mg/dL 70 - 99 mg/dl [facility] Performed on ACCU-CHEK [facility] Glucose [Mass/Vol] 98 mg/dL Normal 70-99 [facility] Comment on above: Performed By: #### P GLU #### [facility] [address] [place] [address] POC Performed on ACCU-CHEK [facility] Comment on above: Performed By: #### P GLU #### [facility] [address] [place] [address] Glucose [Mass/Vol] 95 mg/dL 70 - 99 mg/dl [facility] Performed on ACCU-CHEK [facility] Glucose [Mass/Vol] 95 mg/dL Normal 70-99 [facility] Comment on above: Performed By: #### P GLU #### [facility] [address] [place] [address] POC Performed on ACCU-CHEK Normal [facility] Comment on above: Performed By: #### P GLU #### [facility] [address] [place] [address] Glucose [Mass/Vol] 112 mg/dL High 70 - 99 mg/dl [facility] Interpretation and review of laboratory results Abnormal [facility] Performed on ACCU-CHEK [facility] Glucose [Mass/Vol] 112 mg/dL Critically high 70-99 [facility] Comment on above: Performed By: #### P GLU #### [facility] [address] [place] [address] POC Performed on ACCU-CHEK [facility] Comment on above: Performed By: #### P GLU #### [facility] [address] [place] [address] Glucose [Mass/Vol] 102 mg/dL High 70 - 99 mg/dl [facility] Interpretation and review of laboratory results Abnormal [facility] Performed on ACCU-CHEK [facility] Glucose [Mass/Vol] 102 mg/dL Critically high 70-99 [facility] Comment on above: Performed By: #### P GLU #### [facility] [address] [place] [address] POC Performed on ACCU-CHEK [facility] Comment on above: Performed By: #### P GLU #### [facility] [address] [place] [address] Glucose [Mass/Vol] 125 mg/dL High 70 - 99 mg/dl [facility] Interpretation and review of laboratory results Abnormal [facility] Performed on ACCU-CHEK [facility] [place] [facility] Glucose [Mass/Vol] 125 mg/dL Critically high 70-99 [facility] Comment on above: Performed By: #### P GLU #### [facility] [address] [place] [address] POC Performed on ACCU-CHEK Normal [facility] Comment on above: Performed By: #### P GLU #### [facility] [address] [place] [id number] Renal Function Panelon 03-28 Albumin [Mass/Vol] 3.3 g/dL Low 3.5 - 4.6 g/dL [employer] Anion gap [Moles/Vol] 11 mmol/L [employer] Calcium [Mass/Vol] 8.3 mg/dL Low 8.5 - 9.9 mg/dL [employer] Chloride [Moles/Vol] 107 mmol/L [employer] CO2 [Moles/Vol] 23 mmol/L [facility] [employer] Creatinine [Mass/Vol] 0.53 mg/dL 0.50 - 0.90 mg/dL [employer] GFR/1.73 sq M.predicted among non-blacks MDRD (S/P/Bld) [Vol rate/Area] 60 - PINF [employer] Comment on above: Pediatric calculator link https://www.kidney.org/professionals/kdoqi/gfr_calculatorped Effective Jul 03, 2022 These results are not intended for use in patients <18 years of age. eGFR results are calculated without a race factor using the 2020 CKD-EPI equation. Careful clinical correlation is recommended, particularly when comparing to results calculated using previous equations. The CKD-EPI equation is less accurate in patients with extremes of muscle mass, extra-renal metabolism of creatinine, excessive creatinine ingestion, or following therapy that affects renal tubular secretion. Glucose [Mass/Vol] 113 mg/dL High 70 - 99 mg/dL [employer] Interpretation and review of laboratory results Abnormal [employer] Phosphate [Mass/Vol] 2.1 mg/dL Low 2.3 - 4 .8 mg/dL [employer] Potassium [Moles/Vol] 3.7 mmol/L [employer] Comment on above: Specimen hemolysis h as exceeded the interference as defined by Mahnaz. Value may be falsely increased. Suggest recollection if clinically indicated. Sodium [Moles/Vol] 141 mmol/L [facility] [employer] [facility] Urea nitrogen [Mass/Vol] 6 mg/dL Low 8 - 23 mg/dL [facility] [place] [facility] Bon [facility] Albumin [Mass/Vol] 3.3 g/dL Low 3.5-4.6 [facility] Comment on above: Performed By: #### P GLU #### [facility] [address] [place] [address] Anion gap [Moles/Vol] 11 mmol/L Normal 9-15 [facility] Comment on above: Performed By: #### P GLU #### [facility] [address] [place] [address] Calcium [Mass/Vol] 8.3 mg/dL Low 8.5-9.9 [facility] Comment on above: Performed By: #### P GLU #### [facility] [address] [place] [address] Chloride [Moles/Vol] 107 mmol/L Normal 95-107 [facility] Comment on above: Performed By: #### P GLU #### [facility] [address] [place] [address] CO2 [Moles/Vol] 23 mmol/L Normal 20-31 [facility] Comment on above: Performed By: #### P GLU #### [facility] [address] [place] [address] Creatinine [Mass/Vol] 0.53 mg/dL Normal 0.50-0.90 [facility] Comment on above: Performed By: #### P GLU #### [facility] [address] [place] [address] GFR >90.0 Normal >60 [facility] Comment on above: Result Comment: Frantz atric calculator link https://www.kidney.org/professionals/kdoqi/gfr_calculatorped Effective Jul 03, 2022 These results are not intended for use in patients <18 years of age. eGFR results are calculated without a race factor using the 2020 CKD-EPI equation. Careful clinical correlation is recommended, particularly when comparing to results calculated using previous equations. The CKD-EPI equation is less accurate in patients with extremes of muscle mass, extra-renal metabolism of creatinine, excessive creatinine ingestion, or following therapy that affects renal tubular secretion. Performed By: #### P GLU #### [facility] [address] [place] [address] Glucose [Mass/Vol] 113 mg/dL Critically high 70-99 [facility] Comment on above: Performed By: #### P GLU #### [facility] [address] [place] [address] Phosphate [Mass/Vol] 2.1 mg/dL Low 2.3-4.8 [facility] Comment on above: Performed By: #### P GLU #### [facility] [address] [place] [address] Potassium [Moles/Vol] 3.7 mmol/L Normal 3.4-4.9 [facility] Comment on above: Result Comment: Spec imen hemolysis has exceeded the interference as defined by Mahnaz. Value may be falsely increased. Suggest recollection if clinically indicated. Performed By: #### P GLU #### [facility] [address] [place] [address] Sodium [Moles/Vol] 141 mmol/L Normal 135-144 [facility] Comment on above: Performed By: #### P GLU #### [facility] [address] [place] [address] Urea nitrogen [Mass/Vol] 6 mg/dL Low 8-23 [facility] Comment on above: Performed By: #### P GLU #### [facility] [address] [place] [address] CBC W Auto Differential pane l (Bld)on 03-27-2025 Basophils (Bld) [#/Vol] 0 10*3/uL 0.0 - 0.2 K/uL [facility] Eosinophils/100 WBC (Bld) 2 % [facility] Interpretation and review of laboratory results Abnormal [facility] MCHC (RBC) [Mass/Vol] 32.2 % Low 33.0 - 37.0 % [facility] Monocytes/100 WBC (Bld) 7 % [facility] Segmented neutrophils/100 WBC (Bld) 71.4 % [facility] CBC With Platelet and Differ entialon 03-27-2025 Basophils (Bld) [#/Vol] 0.0 10*3/uL Normal 0.0-0.2 [facility] Comment on above: Performed By: #### P GLU #### [facility] [address] [place] [address] Basophils/100 WBC (Bld) 0.6 % Normal [facility] Comment on above: Performed By: #### P GLU #### [facility] [address] [place] [address] Eosinophils (Bld) [#/Vol] 0.1 10*3/uL Normal 0.0-0.7 [facility] Comment on above: Performed By: #### P GLU #### [facility] [address] [place] [address] Eosinophils/100 WBC (Bld) 2.0 % Normal [facility] Comment on above: Performed By: #### P GLU #### [facility] [address] [place] [address] Erythrocyte distribution width (RBC) [Ratio] 13.2 % Normal 11.5-14.5 [facility] Comment on above: Performed By: #### P GLU #### [facility] [address] [place] [address] Hematocrit (Bld) [Volume fraction] 41.6 % Normal 37.0-47.0 [facility] Comment on above: Performed By: #### P GLU #### [facility] [address] [place] [address] Hemoglobin (Bld) [Mass/Vol] 13.4 g/dL Normal 12.0-16.0 [facility] Comment on above: Performed By: #### P GLU #### [facility] [address] [place] [address] Lymphocytes (Bld) [#/Vol] 1.3 10*3/uL Normal 1.0-4.8 [facility] Comment on above: Performed By: #### P GLU #### [facility] [address] [place] [address] Lymphocytes/100 WBC (Bld) 18.7 % Normal [facility] Comment on above: Performed By: #### P GLU #### [facility] [address] [place] [address] MCH (RBC) [Entitic mass] 29.8 pg Normal 27.0-31.3 [facility] Comment on above: Performed By: #### P GLU #### [facility] [address] [place] [address] MCHC 32.2 % Low 33.0-37.0 [facility] Comment on above: Performed By: #### P GLU #### [facility] [address] [place] [address] MCV (RBC) [Entitic vol] 92.7 fL Normal 79.4-94.8 [facility] Comment on above: Performed By: #### P GLU #### [facility] [address] [place] [address] Monocytes (Bld) [#/Vol] 0.5 10*3/uL Normal 0.2-0.8 [facility] Comment on above: Performed By: #### P GLU #### [facility] [address] [place] [address] Monocytes/100 WBC (Bld) 7.0 % Normal [facility] Comment on above: Performed By: #### P GLU #### [facility] [address] [place] [address] Neutrophils (Bld) [#/Vol] 4.9 10*3/uL Normal 1.4-6.5 [facility] Comment on above: Performed By: #### P GLU #### [facility] [address] [place] [address] Neutrophils/100 WBC (Bld) 71.4 % Normal [facility] Comment on above: Performed By: #### P GLU #### [facility] [address] [place] [address] Platelets (Bld) [#/Vol] 259 10*3/uL Normal 130-400 [facility] Comment on above: Performed By: #### P GLU #### [facility] [address] [place] [address] RBC (Bld) [#/Vol] 4.49 10*6/uL Normal 4.20-5.40 [facility] [place] [facility] [employer] Comment on above: Performed By: #### P GLU #### [facility] [address] [place] [address] WBC (Bld) [#/Vol] 6.9 10*3/uL Normal 4.8-10.8 [facility] [place] [employer] Comment on above: Performed By: #### P GLU #### [facility] [address] [place] [address] EKG 12 LeadOrdered By: Lorena Kohli on 03-27-2025 Atrial Rate 76 BPM [employer] Work Phone: Diagnosis Normal sinus rhythm T wave abnormality, consider anterior ischemia Prolonged QT Abnormal ECG No previous ECGs available Confirmed by Keaton Kohli ([id number]) on 03/27/2025 7:49:26 AM [employer] Work Phone: P [place] 60 degrees [employer] Work Phone: P-R Interval 174 ms [employer] Work Phone: Q-T Interval 446 ms [employer] Work Phone: QRS Duration 92 ms [employer] Work Phone: QTc Calculation (Bazett) 501 ms [facility] [place] [facility] [employer] Work Phone: R [place] -3 degrees [facility] [employer] Work Phone: T [place] 6 degrees [facility] [employer] Work Phone: Ventricular Rate 76 BPM [facility] [employer] Work Phone: [facility] [employer] Work Phone: EKG Rhythm Stripon 5 [facility] POCT Glucoseon 03-27-2025 Glucose [Mass/Vol] 109 mg/dL High 70 - 99 mg/dl [facility] Interpretation and review of laboratory results Abnormal [facility] Performed on ACCU-CHEK [facility] Glucose [Mass/Vol] 109 mg/dL Critically high 70-99 [facility] Comment on above: Performed By: #### P GLU #### [facility] [address] [place] [address] POC Performed on ACCU-CHEK [facility] Comment on above: Performed By: #### P GLU #### [facility] [address] [address] Glucose [Mass/Vol] 82 mg/dL 70 - 99 mg/dl [facility] Performed on ACCU-CHEK [facility] Glucose [Mass/Vol] 82 mg/dL Normal 70-99 [facility] Comment on above: Performed By: #### P GLU #### [facility] [address] [place] [place] [address] POC Performed on ACCU-CHEK [facility] Comment on above: Performed By: #### P GLU #### [facility] [address] [address] Glucose [Mass/Vol] 89 mg/dL 70 - 99 mg/dl [facility] Performed on ACCU-CHEK [facility] Glucose [Mass/Vol] 89 mg/dL Normal 70-99 [facility] Comment on above: Performed By: #### P GLU #### [facility] [address] [place] [address] POC Performed on ACCU-CHEK [facility] Comment on above: Performed By: #### P GLU #### [facility] [address] [place] [address] Glucose [Mass/Vol] 107 mg/dL High 70 - 99 mg/dl [facility] Interpretation and review of laboratory results Abnormal [facility] Health Performed on ACCU-CHEK [facility] [place] [facility] Glucose [Mass/Vol] 107 mg/dL Critically high 70-99 [facility] Comment on above: Performed By: #### P GLU #### [facility] [address] [place] [address] POC Performed on ACCU-CHEK [facility] Comment on above: Performed By: #### P GLU #### [facility] [address] [place] [address] Glucose [Mass/Vol] 105 mg/dL High 70 - 99 mg/dl [facility] Interpretation and review of laboratory results Abnormal [facility] Performed on ACCU-CHEK [facility] Glucose [Mass/Vol] 105 mg/dL Critically high 70-99 [facility] Comment on above: Performed By: #### P GLU #### [facility] [address] [place] [address] POC Performed on ACCU-CHEK [facility] Comment on above: Performed By: #### P GLU #### [facility] [address] [place] [address] Glucose [Mass/Vol] 106 mg/dL High 70 - 99 mg/dl [facility] Interpretation and review of laboratory results Abnormal [facility] Performed on ACCU-CHEK [facility] Glucose [Mass/Vol] 106 mg/dL Critically high 70-99 [facility] Comment on above: Performed By: #### P GLU #### [facility] [address] [place] [address] POC Performed on ACCU-CHEK Normal [facility] Comment on above: Performed By: #### P GLU #### [facility] [address] [place] [address] Portable XR Chest AP single viewon 03-27-2025 EXAMINATION: ONE XRAY VIEW OF THE CHEST 03/27/2025 8:44 am COMPARISON: March 24, 2025 HISTORY: ORDERING SYSTEM PROVIDED HISTORY: chest tube removal TECHNOLOGIST PROVIDED HISTORY: Reason for exam:->chest tube removal What reading provider will be dictating this exam?->CRC FINDINGS: Small bilateral pleural effusions are seen with atelectasis. An NG tube is seen in place. The tip is below the diaphragm out of the field of view. Hernia is again seen on the right. A chest tube on the left has been removed. No large pneumothorax is seen. [facility] MONETTdEwar Olivo, DO - 03/27/2025 EXAMINATION: ONE XRAY VIEW OF THE CHEST 03/27/2025 8:44 am COMPARISON: March 24, 2025 HISTORY: ORDERING SYSTEM PROVIDED HISTORY: chest tube removal TECHNOLOGIST PROVIDED HISTORY: Reason for exam:->chest tube removal What reading provider will be dictating this exam?->CRC FINDINGS: Small bilateral pleural effusions are seen with atelectasis. An NG tube is seen in place. The tip is below the diaphragm out of the field of view. Hernia is again seen on the right. A chest tube on the left has been removed. No large pneumothorax is seen. [facility] [place] [employer] Radiology Study observation (narrative) [facility] Portable XR Chest AP single viewOrdered By: Edwar Toussaint on 03-27-2025 [facility] [place] [employer] Work Phone: Renal Function Panelon 03-27 Albumin [Mass/Vol] 3.6 g/dL 3.5 - 4.6 g/dL [facility] Anion gap [Moles/Vol] 10 mmol/L [facility] Calcium [Mass/Vol] 8.7 mg/dL 8.5 - 9.9 mg/dL [facility] Chloride [Moles/Vol] 105 mmol/L [facility] CO2 [Moles/Vol] 27 mmol/L [facility] Creatinine [Mass/Vol] 0.66 mg/dL 0.50 - 0.90 mg/dL [facility] GFR/1.73 sq M.predicted among non-blacks MDRD (S/P/Bld) [Vol rate/Area] 60 - PINF [facility] Comment on above: Pediatric calculator link https://www.kidney.org/professionals/kdoqi/gfr_calculatorped Effective Jul 03, 2022 These results are not intended for use in patients <18 years of age. eGFR results are calculated without a race factor using the 2020 CKD-EPI equation. Careful clinical correlation is recommended, particularly when comparing to results calculated using previous equations. The CKD-EPI equation is less accurate in patients with extremes of muscle mass, extra-renal metabolism of creatinine, excessive creatinine ingestion, or following therapy that affects renal tubular secretion. Glucose [Mass/Vol] 112 mg/dL High 70 - 99 mg/dL [facility] Interpretation and review of laboratory results Abnormal [facility] Phosphate [Mass/Vol] 1.7 mg/dL Low 2.3 - 4 .8 mg/dL [facility] Potassium [Moles/Vol] 3.8 mmol/L [facility] Sodium [Moles/Vol] 142 mmol/L [facility] Urea nitrogen [Mass/Vol] 8 mg/dL 8 - 23 mg/dL [facility] Albumin [Mass/Vol] 3.6 g/dL Normal 3.5-4.6 [facility] Comment on above: Performed By: #### P GLU #### [facility] [address] [place] [id number] Calcium [Mass/Vol] 8.7 mg/dL Normal 8.5-9.9 [facility] Comment on above: Performed By: #### P GLU #### [facility] [address] [place] [address] Chloride [Moles/Vol] 105 mmol/L Normal 95-107 [facility] Comment on above: Performed By: #### P GLU #### [facility] [address] [place] [address] CO2 [Moles/Vol] 27 mmol/L Normal 20-31 [facility] Comment on above: Performed By: #### P GLU #### [facility] [address] [place] [address] Creatinine [Mass/Vol] 0.66 mg/dL Normal 0.50-0.90 [facility] Comment on above: Performed By: #### P GLU #### [facility] [address] [place] [address] GFR >90.0 Normal >60 [facility] Comment on above: Result Comment: Frantz atric calculator link https://www.kidney.org/professionals/kdoqi/gfr_calculatorped Effective Jul 03, 2022 These results are not intended for use in patients <18 years of age. eGFR results are calculated without a race factor using the 2020 CKD-EPI equation. Careful clinical correlation is recommended, particularly when comparing to results calculated using previous equations. The CKD-EPI equation is less accurate in patients with extremes of muscle mass, extra-renal metabolism of creatinine, excessive creatinine ingestion, or following therapy that affects renal tubular secretion. Performed By: #### P GLU #### [facility] [address] [place] [address] Glucose [Mass/Vol] 112 mg/dL Critically high 70-99 [facility] Comment on above: Performed By: #### P GLU #### [facility] [address] [place] [address] Phosphate [Mass/Vol] 1.7 mg/dL Low 2.3-4.8 [facility] Comment on above: Performed By: #### P GLU #### [facility] [address] [place] [address] Potassium [Moles/Vol] 3.8 mmol/L Normal 3.4-4.9 [facility] Comment on above: Performed By: #### P GLU #### [facility] [address] [place] [address] Sodium [Moles/Vol] 142 mmol/L Normal 135-144 [facility] Comment on above: Performed By: #### P GLU #### [facility] [address] [place] [address] Urea nitrogen [Mass/Vol] 8 mg/dL Normal 8-23 [facility] Comment on above: Performed By: #### P GLU #### [facility] [address] [place] [address] Anion gap [Moles/Vol] 10 mmol/L Normal 9-15 [facility] Comment on above: Performed By: #### P GLU #### [facility] [address] [place] [address] XR CHEST PORTABLEon 03-27-20 25 XR CHEST PORTABLE EXAMINATION: ONE XRAY VIEW OF THE CHEST 03/27/2025 8:44 am COMPARISON: March 24, 2025 HISTORY: ORDERING SYSTEM PROVIDED HISTORY: chest tube removal TECHNOLOGIST PROVIDED HISTORY: Reason for exam:->chest tube removal What reading provider will be dictating this exam?->CRC FINDINGS: Small bilateral pleural effusions are seen with atelectasis. An NG tube is seen in place. The tip is below the diaphragm out of the field of view. Hernia is again seen on the right. A chest tube on the left has been removed. No large pneumothorax is seen. Interpreted by: Edwar Toussaint DO Signed by: Edwar Toussaint DO 03/27/25 Final result Normal [facility] CBC W Auto Differential pane l (Bld)on 03-26-2025 Basophils (Bld) [#/Vol] 0 10*3/uL 0.0 - 0.2 K/uL [facility] Eosinophils (Bld) [#/Vol] 0 10*3/uL 0.0 - 0.7 K/uL [facility] Interpretation and review of laboratory results Abnormal [facility] MCHC (RBC) [Mass/Vol] 33.9 % 33.0 - 37.0 % [facility] RBC (Bld) [#/Vol] 4.2 10*6/uL [facility] Segmented neutrophils/100 WBC (Bld) 81.1 % [facility] CBC With Platelet and Differ entialon 03-26-2025 Basophils (Bld) [#/Vol] 0.0 10*3/uL Normal 0.0-0.2 [facility] Comment on above: Performed By: #### P GLU #### [facility] [address] [place] [address] Basophils/100 WBC (Bld) 0.2 % Normal [facility] Comment on above: Performed By: #### P GLU #### [facility] [address] [place] [address] Eosinophils (Bld) [#/Vol] 0.0 10*3/uL Normal 0.0-0.7 [facility] Comment on above: Performed By: #### P GLU #### [facility] [address] [place] [address] Eosinophils/100 WBC (Bld) 0.1 % Normal [facility] Comment on above: Performed By: #### P GLU #### [facility] [address] [place] [address] Erythrocyte distribution width (RBC) [Ratio] 13.5 % Normal 11.5-14.5 [facility] Comment on above: Performed By: #### P GLU #### [facility] [address] [place] [address] Hematocrit (Bld) [Volume fraction] 38.9 % Normal 37.0-47.0 [facility] Comment on above: Performed By: #### P GLU #### [facility] [address] [place] [address] Hemoglobin (Bld) [Mass/Vol] 13.2 g/dL Normal 12.0-16.0 [facility] Comment on above: Performed By: #### P GLU #### [facility] [address] [place] [address] Lymphocytes (Bld) [#/Vol] 1.1 10*3/uL Normal 1.0-4.8 [facility] Comment on above: Performed By: #### P GLU #### [facility] [address] [place] [address] Lymphocytes/100 WBC (Bld) 11.4 % Normal [facility] Comment on above: Performed By: #### P GLU #### [facility] [address] [place] [address] MCH (RBC) [Entitic mass] 31.4 pg Critically high 27.0-31.3 [facility] Comment on above: Performed By: #### P GLU #### [facility] [address] [place] [address] MCHC 33.9 % Normal 33.0-37.0 [facility] Comment on above: Performed By: #### P GLU #### [facility] [address] [place] [address] MCV (RBC) [Entitic vol] 92.6 fL Normal 79.4-94.8 [facility] Comment on above: Performed By: #### P GLU #### [facility] [address] [place] [address] Monocytes (Bld) [#/Vol] 0.7 10*3/uL Normal 0.2-0.8 [facility] Comment on above: Performed By: #### P GLU #### [facility] [address] [place] [address] Monocytes/100 WBC (Bld) 6.9 % Normal [facility] Comment on above: Performed By: #### P GLU #### [facility] [address] [place] [address] Neutrophils (Bld) [#/Vol] 7.8 10*3/uL Critically high 1.4-6.5 [facility] Comment on above: Performed By: #### P GLU #### [facility] [address] [place] [address] Neutrophils/100 WBC (Bld) 81.1 % Normal [facility] Comment on above: Performed By: #### P GLU #### [facility] [address] [place] [address] Platelets (Bld) [#/Vol] 234 10*3/uL Normal 130-400 [facility] Comment on above: Performed By: #### P GLU #### [facility] [address] [place] [address] RBC (Bld) [#/Vol] 4.20 10*6/uL Normal 4.20-5.40 [facility] Comment on above: Performed By: #### P GLU #### [facility] [address] [place] [address] WBC (Bld) [#/Vol] 9.6 10*3/uL Normal 4.8-10.8 [facility] Comment on above: Performed By: #### P GLU #### [facility] [address] [place] [address] EKG Rhythm Stripon [facility] POCT Glucoseon 03-26-2025 Glucose [Mass/Vol] 95 mg/dL 70 - 99 mg/dl [facility] Performed on ACCU-CHEK [facility] Glucose [Mass/Vol] 95 mg/dL Normal 70-99 [facility] Comment on above: Performed By: #### P GLU #### [facility] [address] [place] [address] POC Performed on ACCU-CHEK [facility] Comment on above: Performed By: #### P GLU #### [facility] [address] [place] [address] Glucose [Mass/Vol] 107 mg/dL High 70 - 99 mg/dl [facility] Interpretation and review of laboratory results Abnormal [facility] Performed on ACCU-CHEK [facility] Glucose [Mass/Vol] 107 mg/dL Critically high 70-99 [facility] Comment on above: Performed By: #### P GLU #### [facility] [address] [place] [address] POC Performed on ACCU-CHEK [facility] Comment on above: Performed By: #### P GLU #### [facility] [address] [place] [address] Glucose [Mass/Vol] 69 mg/dL Low 70 - 99 mg/dl [facility] Interpretation and review of laboratory results Abnormal [facility] Performed on ACCU-CHEK [facility] Glucose [Mass/Vol] 69 mg/dL Low 70-99 [facility] Comment on above: Performed By: #### P GLU #### [facility] [address] [place] [address] POC Performed on ACCU-CHEK [facility] Comment on above: Performed By: #### P GLU #### [facility] [address] [place] [address] Glucose [Mass/Vol] 86 mg/dL 70 - 99 mg/dl [facility] Performed on ACCU-CHEK [facility] Glucose [Mass/Vol] 86 mg/dL Normal 70-99 [facility] Comment on above: Performed By: #### P GLU #### [facility] [address] [place] [address] POC Performed on ACCU-CHEK [facility] Comment on above: Performed By: #### P GLU #### [facility] [address] [place] [address] Glucose [Mass/Vol] 89 mg/dL 70 - 99 mg/dl [facility] Performed on ACCU-CHEK [facility] Glucose [Mass/Vol] 89 mg/dL Normal 70-99 [facility] Comment on above: Performed By: #### P GLU #### [facility] [address] [place] [address] POC Performed on ACCU-CHEK Normal [facility] Comment on above: Performed By: #### P GLU #### [facility] [address] [place] [address] Glucose [Mass/Vol] 92 mg/dL 70 - 99 mg/dl [facility] Performed on ACCU-CHEK [facility] Glucose [Mass/Vol] 92 mg/dL Normal 70-99 [facility] Comment on above: Performed By: #### P GLU #### [facility] [address] [facility] [place] [address] POC Performed on ACCU-CHEK Normal [facility] Comment on above: Performed By: #### P GLU #### [facility] [address] [facility] [place] [address] Pathology studyon 03-26-2025 [facility] [address] [place] [address] FINAL SURGICAL PATHOLOGY REPORT Patient Name: NICOL SMITH Accession No: [id number] Age Sex: 1960 Location: [facility] [id number] Account No: [id number] Collected: 03/24/2025 Med Rec No: [id number] Received: 03/25/2025 Attend Phys: PAULINO HUGHES Completed: 03/26/2025 Perform Phys: PAULINO HUGHES FINAL DIAGNOSIS: RECURRENT PARAESOPHAGEAL HERNIA REPAIR: ADIPOSE TISSUE WITH FIBROSIS AND CHRONIC INFLAMMATION, CONSISTENT WITH HERNIA SAC JACMO/JACMO CLINICAL INFORMATION: Procedure: Laparoscopic recurrent paraesophageal hernia repair, converted to open. Preoperative diagnosis: Paraesophageal hernia. SPECIMEN: Hernia Sac GROSS DESCRIPTION: Received in one container labeled with the patient's name and designated stomach hernia sac . The specimen is received in formalin. The specimen consists of one portion of pink-garrido soft tissue, 3 x 1.4 x 0.5 cm. A mass lesion is not grossly identified. The specimen is submitted in toto in three cassettes. ROSELIA/ROSELIA CPT: 19223 X1 J BORIS CALZADA M.D. 03/26/2025 Electronically signed out by Page 1 of 1 [facility] Renal Function Panelon 03-26 Albumin [Mass/Vol] 3.6 g/dL 3.5 - 4.6 g/dL [facility] Anion gap [Moles/Vol] 11 mmol/L [facility] Calcium [Mass/Vol] 8.4 mg/dL Low 8.5 - 9.9 mg/dL [facility] Chloride [Moles/Vol] 105 mmol/L [facility] CO2 [Moles/Vol] 23 mmol/L [facility] Creatinine [Mass/Vol] 0.57 mg/dL 0.50 - 0.90 mg/dL [facility] GFR/1.73 sq M.predicted among non-blacks MDRD (S/P/Bld) [Vol rate/Area] 60 - PINF [facility] Comment on above: Pediatric calculator link https://www.kidney.org/professionals/kdoqi/gfr_calculatorped Effective Jul 03, 2022 These results are not intended for use in patients <18 years of age. eGFR results are calculated without a race factor using the 2020 CKD-EPI equation. Careful clinical correlation is recommended, particularly when comparing to results calculated using previous equations. The CKD-EPI equation is less accurate in patients with extremes of muscle mass, extra-renal metabolism of creatinine, excessive creatinine ingestion, or following therapy that affects renal tubular secretion. Glucose [Mass/Vol] 103 mg/dL High 70 - 99 mg/dL [facility] Interpretation and review of laboratory results Abnormal [facility] Phosphate [Mass/Vol] 1.3 mg/dL Low 2.3 - 4 .8 mg/dL [facility] Potassium [Moles/Vol] 3.8 mmol/L [facility] Sodium [Moles/Vol] 139 mmol/L [facility] Urea nitrogen [Mass/Vol] 11 mg/dL 8 - 23 mg/dL [facility] Albumin [Mass/Vol] 3.6 g/dL Normal 3.5-4.6 [facility] Comment on above: Performed By: #### P GLU #### [facility] [address] [place] [address] Anion gap [Moles/Vol] 11 mmol/L Normal 9-15 [facility] Comment on above: Performed By: #### P GLU #### [facility] [address] [place] [address] Calcium [Mass/Vol] 8.4 mg/dL Low 8.5-9.9 [facility] Comment on above: Performed By: #### P GLU #### [facility] [address] [place] [address] Chloride [Moles/Vol] 105 mmol/L Normal 95-107 [facility] Comment on above: Performed By: #### P GLU #### [facility] [address] [place] [address] CO2 [Moles/Vol] 23 mmol/L Normal 20-31 [facility] Comment on above: Performed By: #### P GLU #### [facility] [address] [place] [address] Creatinine [Mass/Vol] 0.57 mg/dL Normal 0.50-0.90 [facility] Comment on above: Performed By: #### P GLU #### [facility] [address] [place] [address] GFR >90.0 Normal >60 [facility] Comment on above: Result Comment: Frantz atric calculator link https://www.kidney.org/professionals/kdoqi/gfr_calculatorped Effective Jul 03, 2022 These results are not intended for use in patients <18 years of age. eGFR results are calculated without a race factor using the 2020 CKD-EPI equation. Careful clinical correlation is recommended, particularly when comparing to results calculated using previous equations. The CKD-EPI equation is less accurate in patients with extremes of muscle mass, extra-renal metabolism of creatinine, excessive creatinine ingestion, or following therapy that affects renal tubular secretion. Performed By: #### P GLU #### [facility] [address] [place] [address] Glucose [Mass/Vol] 103 mg/dL Critically high 70-99 [facility] Comment on above: Performed By: #### P GLU #### [facility] [address] [place] [address] Phosphate [Mass/Vol] 1.3 mg/dL Low 2.3-4.8 [facility] Comment on above: Performed By: #### P GLU #### [facility] [address] [place] [address] Potassium [Moles/Vol] 3.8 mmol/L Normal 3.4-4.9 [facility] Comment on above: Performed By: #### P GLU #### [facility] [address] [place] [address] Sodium [Moles/Vol] 139 mmol/L Normal 135-144 [facility] Comment on above: Performed By: #### P GLU #### [facility] [address] [place] [address] Urea nitrogen [Mass/Vol] 11 mg/dL Normal 8-23 [facility] Comment on above: Performed By: #### P GLU #### [facility] [address] [place] [address] Basic Metabolic Panel Reflex Mgon 03-25-2024 Calcium [Mass/Vol] 8.9 mg/dL Normal 8.5-9.9 [facility] Comment on above: Performed By: #### P GLU #### [facility] [address] [place] [address] Chloride [Moles/Vol] 105 mmol/L Normal 95-107 [facility] Comment on above: Performed By: #### P GLU #### [facility] [address] [place] [address] CO2 [Moles/Vol] 25 mmol/L Normal 20-31 [facility] Comment on above: Performed By: #### P GLU #### [facility] [address] [place] [address] Creatinine [Mass/Vol] 0.68 mg/dL Normal 0.50-0.90 [facility] Comment on above: Performed By: #### P GLU #### [facility] [address] [place] [address] GFR >90.0 Normal >60 [facility] Comment on above: Result Comment: Pedi atric calculator link https://www.kidney.org/professionals/kdoqi/gfr_calculatorped Effective Jul 03, 2022 These results are not intended for use in patients <18 years of age. eGFR results are calculated without a race factor using the 2020 CKD-EPI equation. Careful clinical correlation is recommended, particularly when comparing to results calculated using previous equations. The CKD-EPI equation is less accurate in patients with extremes of muscle mass, extra-renal metabolism of creatinine, excessive creatinine ingestion, or following therapy that affects renal tubular secretion. Performed By: #### P GLU #### [facility] [address] [place] [address] Glucose [Mass/Vol] 131 mg/dL Critically high 70-99 [facility] Comment on above: Performed By: #### P GLU #### [facility] [address] [place] [address] Magnesium [Moles/Vol] 5.0 mmol/L Critically high 3.4-4.9 [facility] Comment on above: Performed By: #### P GLU #### [facility] [address] [place] [address] Sodium [Moles/Vol] 141 mmol/L Normal 135-144 [facility] Comment on above: Performed By: #### P GLU #### [facility] [address] [place] [address] Urea nitrogen [Mass/Vol] 11 mg/dL Normal 8-23 [facility] Comment on above: Performed By: #### P GLU #### [facility] [address] [place] [address] Anion gap [Moles/Vol] 11 mmol/L Normal 9-15 [facility] Comment on above: Performed By: #### P GLU #### [facility] [address] [place] [address] Anion gap [Moles/Vol] 11 mmol/L Normal 9-15 [facility] Comment on above: Performed By: #### P GLU #### [facility] [address] [place] [address] Calcium [Mass/Vol] 8.6 mg/dL Normal 8.5-9.9 [facility] Comment on above: Performed By: #### P GLU #### [facility] [address] [place] [address] Chloride [Moles/Vol] 106 mmol/L Normal 95-107 [facility] Comment on above: Performed By: #### P GLU #### [facility] [address] [place] [address] CO2 [Moles/Vol] 24 mmol/L Normal 20-31 [facility] Comment on above: Performed By: #### P GLU #### [facility] [address] [place] [address] Creatinine [Mass/Vol] 0.64 mg/dL Normal 0.50-0.90 [facility] Comment on above: Performed By: #### P GLU #### [facility] [address] [place] [address] GFR >90.0 Normal >60 [facility] Comment on above: Result Comment: Frantz atric calculator link https://www.kidney.org/professionals/kdoqi/gfr_calculatorped Effective Jul 03, 2022 These results are not intended for use in patients <18 years of age. eGFR results are calculated without a race factor using the 2020 CKD-EPI equation. Careful clinical correlation is recommended, particularly when comparing to results calculated using previous equations. The CKD-EPI equation is less accurate in patients with extremes of muscle mass, extra-renal metabolism of creatinine, excessive creatinine ingestion, or following therapy that affects renal tubular secretion. Performed By: #### P GLU #### [facility] [address] [place] [address] Glucose [Mass/Vol] 357 mg/dL Critically high 70-99 [facility] Comment on above: Performed By: #### P GLU #### [facility] [address] [place] [address] Magnesium [Moles/Vol] 5.0 mmol/L Critically high 3.4-4.9 [facility] Comment on above: Performed By: #### P GLU #### [facility] [address] [place] [address] Sodium [Moles/Vol] 141 mmol/L Normal 135-144 [facility] Comment on above: Performed By: #### P GLU #### [facility] [address] [place] [address] Urea nitrogen [Mass/Vol] 14 mg/dL Normal 8-23 [facility] Comment on above: Performed By: #### P GLU #### [facility] [address] [place] [address] Basic metabolic 2000 panelon 03-25-2025 Anion gap [Moles/Vol] 11 mmol/L [facility] Calcium [Mass/Vol] 8.9 mg/dL 8.5 - 9.9 mg/dL [facility] Chloride [Moles/Vol] 105 mmol/L [facility] CO2 [Moles/Vol] 25 mmol/L [facility] Creatinine [Mass/Vol] 0.68 mg/dL 0.50 - 0.90 mg/dL [facility] [employer] GFR/1.73 sq M.predicted among non-blacks MDRD (S/P/Bld) [Vol rate/Area] 60 - PINF [facility] Comment on above: Pediatric calculator link https://www.kidney.org/professionals/kdoqi/gfr_calculatorped Effective Jul 03, 2022 These results are not intended for use in patients <18 years of age. eGFR results are calculated without a race factor using the 2020 CKD-EPI equation. Careful clinical correlation is recommended, particularly when comparing to results calculated using previous equations. The CKD-EPI equation is less accurate in patients with extremes of muscle mass, extra-renal metabolism of creatinine, excessive creatinine ingestion, or following therapy that affects renal tubular secretion. Glucose [Mass/Vol] 131 mg/dL High 70 - 99 mg/dL [facility] Interpretation and review of laboratory results Abnormal [facility] [employer] Potassium [Moles/Vol] 5 mmol/L High [facility] [employer] Sodium [Moles/Vol] 141 mmol/L [facility] [employer] Urea nitrogen [Mass/Vol] 11 mg/dL 8 - 23 mg/dL [facility] Anion gap [Moles/Vol] 11 mmol/L [facility] [employer] Calcium [Mass/Vol] 8.6 mg/dL 8.5 - 9.9 mg/dL [facility] [employer] Chloride [Moles/Vol] 106 mmol/L [facility] CO2 [Moles/Vol] 24 mmol/L [facility] [employer] Creatinine [Mass/Vol] 0.64 mg/dL 0.50 - 0.90 mg/dL [facility] [employer] GFR/1.73 sq M.predicted among non-blacks MDRD (S/P/Bld) [Vol rate/Area] 60 - PINF [facility] CSR [facility] Comment on above: Pediatric calculator link https://www.kidney.org/professionals/kdoqi/gfr_calculatorped Effective Jul 03, 2022 These results are not intended for use in patients <18 years of age. eGFR results are calculated without a race factor using the 2020 CKD-EPI equation. Careful clinical correlation is recommended, particularly when comparing to results calculated using previous equations. The CKD-EPI equation is less accurate in patients with extremes of muscle mass, extra-renal metabolism of creatinine, excessive creatinine ingestion, or following therapy that affects renal tubular secretion. Glucose [Mass/Vol] 357 mg/dL High 70 - 99 mg/dL [employer] [facility] Interpretation and review of laboratory results Abnormal [facility] [employer] Potassium [Moles/Vol] 5 mmol/L High [facility] Sodium [Moles/Vol] 141 mmol/L [facility] Urea nitrogen [Mass/Vol] 14 mg/dL 8 - 23 mg/dL [facility] CBC With Platelet No Pinky gregory 03-25-2025 Erythrocyte distribution width (RBC) [Ratio] 13.2 % Normal 11.5-14.5 [facility] Comment on above: Performed By: #### P GLU #### [facility] [address] [place] [id number] Hematocrit (Bld) [Volume fraction] 42.7 % Normal 37.0-47.0 [facility] Comment on above: Performed By: #### P GLU #### [facility] [address] [place] [address] Hemoglobin (Bld) [Mass/Vol] 14.1 g/dL Normal 12.0-16.0 [facility] Comment on above: Performed By: #### P GLU #### [facility] [address] [place] [address] MCH (RBC) [Entitic mass] 30.7 pg Normal 27.0-31.3 [facility] Comment on above: Performed By: #### P GLU #### [facility] [address] [place] [address] MCHC 33.0 % Normal 33.0-37.0 [facility] Comment on above: Performed By: #### P GLU #### [facility] [address] [place] [address] MCV (RBC) [Entitic vol] 92.8 fL Normal 79.4-94.8 [facility] Comment on above: Performed By: #### P GLU #### [facility] [address] [place] [address] Platelets (Bld) [#/Vol] 262 10*3/uL Normal 130-400 [facility] Comment on above: Performed By: #### P GLU #### [facility] [address] [place] [address] RBC (Bld) [#/Vol] 4.60 10*6/uL Normal 4.20-5.40 [facility] Comment on above: Performed By: #### P GLU #### [facility] [address] [place] [address] WBC (Bld) [#/Vol] 12.2 10*3/uL Critically high 4.8-10.8 [facility] Comment on above: Performed By: #### P GLU #### [facility] [address] [place] [address] CBC panel Auto (Bld)on 03-25 Interpretation and review of laboratory results Abnormal [facility] MCHC (RBC) [Mass/Vol] 33 % 33.0 - 37.0 % [facility] RBC (Bld) [#/Vol] 4.6 10*6/uL [facility] EKG Rhythm Stripon [facility] POCT Glucoseon 03-25-2025 Glucose [Mass/Vol] 100 mg/dL High 70 - 99 mg/dl [facility] Interpretation and review of laboratory results Abnormal [facility] Performed on ACCU-CHEK [facility] Glucose [Mass/Vol] 100 mg/dL Critically high 70-99 [facility] Comment on above: Performed By: #### P GLU #### [facility] [address] [place] [address] POC Performed on ACCU-CHEK Normal [facility] Comment on above: Performed By: #### P GLU #### [facility] [address] [place] [address] Glucose [Mass/Vol] 135 mg/dL High 70 - 99 mg/dl [facility] Interpretation and review of laboratory results Abnormal [facility] Performed on ACCU-CHEK [facility] Glucose [Mass/Vol] 135 mg/dL Critically high 70-99 [facility] Comment on above: Performed By: #### P GLU #### [facility] [address] [place] [address] POC Performed on ACCU-CHEK Normal [facility] Comment on above: Performed By: #### P GLU #### [facility] [address] [place] [address] Glucose [Mass/Vol] 136 mg/dL High 70 - 99 mg/dl [facility] Interpretation and review of laboratory results Abnormal [facility] Performed on ACCU-CHEK [facility] Glucose [Mass/Vol] 136 mg/dL Critically high 70-99 [facility] Comment on above: Performed By: #### P GLU #### [facility] [address] [place] [address] POC Performed on ACCU-CHEK Normal [facility] Comment on above: Performed By: #### P GLU #### [facility] [address] [place] [address] Basic Metabolic Panel Reflex Mgon 03-24-2024 Anion gap [Moles/Vol] 15 mmol/L Normal 9-15 [facility] Comment on above: Performed By: #### P GLU #### [facility] [address] [place] [address] Calcium [Mass/Vol] 8.5 mg/dL Normal 8.5-9.9 [facility] Comment on above: Performed By: #### P GLU #### [facility] [address] [place] [address] Chloride [Moles/Vol] 106 mmol/L Normal 95-107 [facility] Comment on above: Performed By: #### P GLU #### [facility] [address] [place] [address] CO2 [Moles/Vol] 21 mmol/L Normal 20-31 [facility] Comment on above: Performed By: #### P GLU #### [facility] [address] [place] [address] Creatinine [Mass/Vol] 0.87 mg/dL Normal 0.50-0.90 [facility] Comment on above: Performed By: #### P GLU #### [facility] [address] [place] [address] GFR 74.8 Normal >60 [facility] Comment on above: Result Comment: Frantz atric calculator link https://www.kidney.org/professionals/kdoqi/gfr_calculatorped Effective Jul 03, 2022 These results are not intended for use in patients <18 years of age. eGFR results are calculated without a race factor using the 2020 CKD-EPI equation. Careful clinical correlation is recommended, particularly when comparing to results calculated using previous equations. The CKD-EPI equation is less accurate in patients with extremes of muscle mass, extra-renal metabolism of creatinine, excessive creatinine ingestion, or following therapy that affects renal tubular secretion. Performed By: #### P GLU #### [facility] [address] [place] [address] Glucose [Mass/Vol] 235 mg/dL Critically high 70-99 [facility] Comment on above: Performed By: #### P GLU #### [facility] [address] [place] [address] Magnesium [Moles/Vol] 4.2 mmol/L Normal 3.4-4.9 [facility] Comment on above: Performed By: #### P GLU #### [facility] [address] [place] [address] Sodium [Moles/Vol] 142 mmol/L Normal 135-144 [facility] Comment on above: Performed By: #### P GLU #### [facility] [address] [place] [address] Urea nitrogen [Mass/Vol] 17 mg/dL Normal 8-23 [facility] Comment on above: Performed By: #### P GLU #### [facility] [address] [place] [address] Basic metabolic 2000 panelon 03-24-2025 Anion gap [Moles/Vol] 15 mmol/L [facility] Calcium [Mass/Vol] 8.5 mg/dL 8.5 - 9.9 mg/dL [facility] Chloride [Moles/Vol] 106 mmol/L [facility] CO2 [Moles/Vol] 21 mmol/L [facility] Creatinine [Mass/Vol] 0.87 mg/dL 0.50 - 0.90 mg/dL [facility] GFR/1.73 sq M.predicted among non-blacks MDRD (S/P/Bld) [Vol rate/Area] 74.8 mL/min/{1.73_m2} 60 - PINF [facility] Comment on above: Pediatric calculator link https://www.kidney.org/professionals/kdoqi/gfr_calculatorped Effective Jul 03, 2022 These results are not intended for use in patients <18 years of age. eGFR results are calculated without a race factor using the 2020 CKD-EPI equation. Careful clinical correlation is recommended, particularly when comparing to results calculated using previous equations. The CKD-EPI equation is less accurate in patients with extremes of muscle mass, extra-renal metabolism of creatinine, excessive creatinine ingestion, or following therapy that affects renal tubular secretion. Glucose [Mass/Vol] 235 mg/dL High 70 - 99 mg/dL [facility] Interpretation and review of laboratory results Abnormal [facility] Potassium [Moles/Vol] 4.2 mmol/L [facility] Sodium [Moles/Vol] 142 mmol/L [facility] Urea nitrogen [Mass/Vol] 17 mg/dL 8 - 23 mg/dL [facility] CBC With Platelet No Differe ntialon 03-24-2025 Erythrocyte distribution width (RBC) [Ratio] 13.2 % Normal 11.5-14.5 [facility] Comment on above: Performed By: #### P GLU #### [facility] [address] [place] [id number] Hematocrit (Bld) [Volume fraction] 44.8 % Normal 37.0-47.0 [facility] Comment on above: Performed By: #### P GLU #### [facility] [address] [place] [address] Hemoglobin (Bld) [Mass/Vol] 14.7 g/dL Normal 12.0-16.0 [facility] Comment on above: Performed By: #### P GLU #### [facility] [address] [place] [address] MCH (RBC) [Entitic mass] 30.5 pg Normal 27.0-31.3 [facility] Comment on above: Performed By: #### P GLU #### [facility] [address] [place] [address] MCHC 32.8 % Low 33.0-37.0 [facility] Comment on above: Performed By: #### P GLU #### [facility] [address] [place] [address] MCV (RBC) [Entitic vol] 92.9 fL Normal 79.4-94.8 [facility] Comment on above: Performed By: #### P GLU #### [facility] [address] [place] [address] Platelets (Bld) [#/Vol] 291 10*3/uL Normal 130-400 [facility] Comment on above: Performed By: #### P GLU #### [facility] [address] [place] [address] RBC (Bld) [#/Vol] 4.82 10*6/uL Normal 4.20-5.40 [facility] Comment on above: Performed By: #### P GLU #### [facility] [address] [place] [address] WBC (Bld) [#/Vol] 12.0 10*3/uL Critically high 4.8-10.8 [facility] Comment on above: Performed By: #### P GLU #### [facility] [address] [place] [address] CBC panel Auto (Bld)on 03-24 Interpretation and review of laboratory results Abnormal [facility] MCHC (RBC) [Mass/Vol] 32.8 % Low 33.0 - 37.0 % [facility] WBC (Bld) [#/Vol] 12 10*3/uL High 4.8 - 10.8 K/uL [facility] EKG Rhythm Stripon [facility] Portable XR Chest AP single viewon 03-24-2025 1. Support apparatus are appropriate. 2. Left lung base atelectasis versus pneumonia. [facility] RAD[facility] EXAMINATION: ONE XRAY VIEW OF THE CHEST 03/24/2025 4:40 pm COMPARISON: None. HISTORY: ORDERING SYSTEM PROVIDED HISTORY: Chest tube placement TECHNOLOGIST PROVIDED HISTORY: Reason for exam:->Chest tube placement What reading provider will be dictating this exam?->CRC FINDINGS: NG tube side port below the GE junction, appropriate. Left chest wall tip projecting over the medial aspect of the left upper lung field. No pneumothorax. Mild cardiomegaly. Airspace consolidation within the left lung base, may represent atelectasis or pneumonia. No pneumothorax or pleural fusions. [facility] RADIOLOGY Hilario Mann MD - 03/24 EXAMINATION: ONE XRAY VIEW OF THE CHEST 03/24/2025 4:40 pm COMPARISON: None. HISTORY: ORDERING SYSTEM PROVIDED HISTORY: Chest tube placement TECHNOLOGIST PROVIDED HISTORY: Reason for exam:->Chest tube placement What reading provider will be dictating this exam?->CRC FINDINGS: NG tube side port below the GE junction, appropriate. Left chest wall tip projecting over the medial aspect of the left upper lung field. No pneumothorax. Mild cardiomegaly. Airspace consolidation within the left lung base, may represent atelectasis or pneumonia. No pneumothorax or pleural fusions. IMPRESSION: 1. Support apparatus are appropriate. 2. Left lung base atelectasis versus pneumonia. [facility] Radiology Study observation (narrative) [facility] Portable XR Chest AP single viewOrdered By: Hilario Mann on 03-24-2025 [facility] Work Phone: Surgical Specimenon 03-24-20 Surgical Specimen [facility] [address] [place], [place] [id number] FINAL SURGICAL PATHOLOGY REPORT Patient Name: NICOL SMITH Accession No: [id number] Age Sex: 1960 Location: [place] [address] Account No: [id number] Collected: 03/24/2025 [facility] Rec No: [id number] Received: 03/25/2025 Attend Phys: PAULINO HUGHES Completed: 03/26/2025 Perform Phys: PAULINO HUGHES FINAL DIAGNOSIS: RECURRENT PARAESOPHAGEAL HERNIA REPAIR: ADIPOSE TISSUE WITH FIBROSIS AND CHRONIC INFLAMMATION, CONSISTENT WITH HERNIA SAC VANNESAMO/ROSELIA CLINICAL INFORMATION: Procedure: Laparoscopic recurrent paraesophageal hernia repair, converted to open. Preoperative diagnosis: Paraesophageal hernia. SPECIMEN: Hernia Sac GROSS DESCRIPTION: Received in one container labeled with the patient's name and designated stomach hernia sac . The specimen is received in formalin. The specimen consists of one portion of pink-garrido soft tissue, 3 x 1.4 x 0.5 cm. A mass lesion is not grossly identified. The specimen is submitted in toto in three cassettes. ROSELIA/ROSELIA CPT: 66243 X1 J BORIS CALZADA M.D. 03/26/2025 Electronically signed out by Page 1 of 1 Invalid Interpretation Code [facility] Comment on above: Performed By: #### P GLU #### [address] [address] XR CHEST PORTABLEon 03-24-20 XR CHEST PORTABLE EXAMINATION: ONE XRAY VIEW OF THE CHEST 03/24/2025 4:40 pm COMPARISON: None. HISTORY: ORDERING SYSTEM PROVIDED HISTORY: Chest tube placement TECHNOLOGIST PROVIDED HISTORY: Reason for exam:->Chest tube placement What reading provider will be dictating this exam?->CRC FINDINGS: NG tube side port below the GE junction, appropriate. Left chest wall tip projecting over the medial aspect of the left upper lung field. No pneumothorax. Mild cardiomegaly. Airspace consolidation within the left lung base, may represent atelectasis or pneumonia. No pneumothorax or pleural fusions. IMPRESSION: 1. Support apparatus are appropriate. 2. Left lung base atelectasis versus pneumonia. Interpreted by: Hilario Mann MD Signed by: Hilario Mann MD 03/24/25 Final result Normal [facility] 36on 03-18-2025 36 LVM for pt to call [facility] to schedule consult with Dr. Valadez to discuss SCS trial. Imaging requested. Please let service writer know when scheduled. [employer] reps will need notified. Normal [facility] Type and Screen 3 cell Gelon 03-17-2025 Type and Screen 3 cell Gel PATIENT: LUIS BRICEÑO LOC: JOSE ALBERTOBILL# : [id number] : 1960 SEX: F ORDERED BY: JOSHUA CALERO ORDERED : 03/17/2025 12:03 COLLECTED: 03/17/2025 12:25 ORDER : [id number] RECEIVED : 03/17/2025 12:31 --- TEST NAME RESULT UNITS RANGES ABN FL ST ABORH Gel B POS F Antibody 3 Cell Scrn Gel NEG F -- Normal [facility] Comment on above: Performed By: #### P GLU #### [facility] [address] [place] [id number] CT chest w [facility] 03-02-2025 [place] [address] CT Scan Report Signed Patient: Nicol Smith MR#: [id number] 9 : 1960 Acct:[id number] Age/Sex: 64 / F ADM Date: 03/02/25 Loc: CT Room: Type: [facility] Attending Dr: Mer Kirkland APRN Copies to: Mer Kirkland APRN Ordering Provider: Mer Kirkland APRN Date of Service: 03/02/25 CT/CT [...] Katz M.D. 03/02/2025 4:28 PM Dictation Location: [place] [address] Transcribed By: [facility] 03/02/25 1628 Dictated By: Kane Katz DO 03/02/25 1622 Signed By: 03/02/25 1628 Normal [facility] CT abdomen w conon CT abdomen w con [facility] [place] [place] [address] CT Scan Report Signed Patient: Nicol Smith MR#: [id number] 9 : 1960 Acct:[id number] Age/Sex: 64 / F ADM Date: 02/16/25 Loc: CT Room: Type: [facility] Attending Dr: Mer Kirkland APRN Copies to: Mer Kirkland APRN Ordering Provider: Mer Kirkland APRN Date of Service: 02/16/25 CT/CT [...] chest is recommended. Impression dictated by: Magdy Crooks M.D. 02/16/2025 12:18 PM Dictation Location: [place] [address] Transcribed By: SILVIA 02/16/25 1218 Dictated By: Magdy Crooks II, MD 02/16/251210 Signed By: 02/16/25 1218 Normal [facility] Creatinineon 02-16-2025 GFR/1.73 sq M.predicted MDRD (S/P/Bld) [Vol rate/Area] mL/min/{1.73_m2} Normal [facility] Comment on above: Result Comment: PERF ORMED BY: [facility] [address] [facility] [place] [id number] PATHOLOGIST HOSTESS HOST SHAW SAAVEDRA M.D. Performed By: #### B UN, CREAT ####[address] Creatinine [Mass/volume] in Serum or PlasmaOrdered By: Mer Kirkland on 02-16-2025 Creatinine [Mass/Vol] Creatinine [Mass/v olume] in Serum or Plasma 0.60-1.20 [facility] Creatinine [Mass/Vol] 0.79 mg/dL Normal 0.60-1.20 [facility] Comment on above: Performed By: #### B UN, CREAT ####[address] No Panel InformationOrdered By: Mer Kirkland on 02-16-2025 Estimated GFR (CKD-EPI) > 60.0 mL/Min [facility] Creatinine Clearance (Chem N/A [facility] Urea nitrogen [Mass/volume] in Serum or PlasmaOrdered By: Mer Kirkland on 02-16-2025 Urea nitrogen [Mass/Vol] Urea nitrogen [Mass/volume] in Serum or Plasma 04-24 [facility] Urea nitrogen [Mass/Vol] 16 mg/dL Normal 04-24 [facility] Comment on above: Performed By: #### B UN, CREAT ####[facility] [place] [address] [facility] Bacteria identified Cx Nom ( U)Ordered By: Miguel A Gonzalez on 01-29-2025 Bacteria identified Aer cx Nom (Unsp spec) 10-50,000 ORGANISMS/mL NORMAL UROGENITAL ELOD[facility] C. trachomatis DNA ALEKSANDR+probe Ql (Unsp spec)Ordered By: Cammie Motta on 01-29-2025 Chlamydia sp DNA ALEKSANDR+probe Ql (Unsp spec) Negative Negative [facility] Comment on above: Chlamydia trachomati s not detected by nucleic acid amplification. This does not exclude the possibility of infection because results are dependent on adequate specimen collection. Interpretation and review of laboratory results Normal [facility] N. gonorrhoeae DNA ALEKSANDR+probe Ql (Unsp spec) Negative Negative [facility] Comment on above: Neisseria gonorrhoea e not detected by nucleic acid amplification. This does not exclude the possibility of infection because results are dependent on adequate specimen collection. [facility] Vaginitis Panel PCROrdered B y: Doroteo David on 01-29-2025 Bacterial vaginosis DNA panel ALEKSANDR+probe (Vag fld) Not detected Not Detected [facility] Comment on above: Qualitative results are reported based on detection and quantitation of targeted organism markers which include: Lactobacillus spp. (L. crispatus and L. jensenii), Gardnerella vaginalis, Atopobium vaginae, Bacterial Vaginosis Associated Bacteria-2 (BVAB-2) and Megasphaera-1. C. glabrata DNA ALEKSANDR+probe Ql (Vag fld) Not detected Not Detected [facility] Comment on above: No Fabiola glabrata detected. C. krusei DNA ALEKSANDR+probe Ql (Vag fld) Not detected Not Detected [facility] Comment on above: No Fabiola krusei de tected. Fabiola sp 6 panel ALEKSANDR+probe (Vag fld) Not detected Not Detected [facility] Comment on above: Fabiola species not detected include: C. albicans, C. tropicalis, C. parapsilosis or C. dubliniensis. Interpretation and review of laboratory results Normal [facility] T. vaginalis DNA ALEKSANDR+probe Ql (Vag fld) Not detected Not Detected [facility] Comment on above: No Trichomonas vagin kieran detected. BD MAX Vaginal Panel has not been evaluated for patients under 18 years old. Results for these patients should be reviewed and assessed in accordance with clinical presentation to determine patient diagnosis. [facility] CHLAMYDIA/GC BY PCR LAURIE SW ABon 01-28-2025 CHLAMYDIA/GC BY PCR LAURIE SWAB CHLAMYDIA DNA(PCR) Negative Chlamydia trachomatis not detected by nucleic acid amplification. This does not exclude the possibility of infection because results are dependent on adequate specimen collection. GONORRHOEAE DNA(PCR) Negative Neisseria gonorrhoeae not detected by nucleic acid amplification. This does not exclude the possibility of infection because results are dependent on adequate specimen collection. Normal [facility] Comment on above: Performed By: #### C GS #### [facility] [address] [place] [address] VIR Measure post void residualon 01-28-2025 Volume 177mL [facility] POCT urinalysis dipstick onl yon 01-28-2025 Appearance (U) clear [facility] External Poct Urine Blood Negative [facility] External Poct Urine Color yellow [facility] External Poct Urine Glucose Negative [facility] External Poct Urine Ketones Negative [facility] External Poct Urine Leukocyte Esterase Moderate [facility] External Poct Urine Nitrite Negative [facility] External Poct Urine Ph 6 Pr [facility] URINALYSISon 01-28-2025 Bilirubin Ql (U) Negative Normal Negative [facility] Comment on above: Order Comment: Urine received without preservative. Delays in transport may affect results. Interpret with caution. A clinical correlation is recommended. Performed By: #### U A #### [facility] ([facility]) [address] [place] [address] VIR BLOOD/HGB Negative Normal Negative [facility] Comment on above: Order Comment: Urine received without preservative. Delays in transport may affect results. Interpret with caution. A clinical correlation is recommended. Performed By: #### U A #### [facility] ([facility]) [address] [place] [address] VIR Color (U) Yellow Normal Yellow [facility] Comment on above: Order Comment: Urine received without preservative. Delays in transport may affect results. Interpret with caution. A clinical correlation is recommended. Performed By: #### U A #### [facility] ([facility]) [address] [place] [address] VIR Glucose Ql (U) Negative Normal Negative [facility] Comment on above: Order Comment: Urine received without preservative. Delays in transport may affect results. Interpret with caution. A clinical correlation is recommended. Performed By: #### U A #### [facility] ([facility]) [address] [place] [address] VIR Ketones Ql (U) Negative Normal Negative [facility] Comment on above: Order Comment: Urine received without preservative. Delays in transport may affect results. Interpret with caution. A clinical correlation is recommended. Performed By: #### U A #### [facility] ([facility]) [address] [place] [address] VIR Leukocyte esterase Test strip Ql (U) Large Abnormal Negative [facility] Comment on above: Order Comment: Urine received without preservative. Delays in transport may affect results. Interpret with caution. A clinical correlation is recommended. Performed By: #### U A #### [facility] ([facility]) [address] [place] [address] VIR MUCOUS Present Abnormal None [facility] Comment on above: Order Comment: Urine received without preservative. Delays in transport may affect results. Interpret with caution. A clinical correlation is recommended. Performed By: #### U A #### [facility] ([facility]) [address] [place] [address] VIR Nitrite Ql (U) Negative Normal Negative [facility] Comment on above: Order Comment: Urine received without preservative. Delays in transport may affect results. Interpret with caution. A clinical correlation is recommended. Performed By: #### U A #### [facility] ([facility]) [address] [place] [address] VIR PH,URINE 6.0 Normal 5.0-8.5 [facility] Comment on above: Order Comment: Urine received without preservative. Delays in transport may affect results. Interpret with caution. A clinical correlation is recommended. Performed By: #### U A #### [facility] ([facility]) [address] [place] [address] VIR Protein Ql (U) Negative Normal Negative [facility] Comment on above: Order Comment: Urine received without preservative. Delays in transport may affect results. Interpret with caution. A clinical correlation is recommended. Performed By: #### U A #### [facility] ([facility]) [address] [place] [address] VIR R.B.CELLS <^1 Normal 0-5 [facility] Comment on above: Order Comment: Urine received without preservative. Delays in transport may affect results. Interpret with caution. A clinical correlation is recommended. Performed By: #### U A #### [facility] ([facility]) [address] [place] [address] VIR Specific gravity (U) [Rel density] 1.021 Normal 1.003-1.03 5 [facility] Comment on above: Order Comment: Urine received without preservative. Delays in transport may affect results. Interpret with caution. A clinical correlation is recommended. Performed By: #### U A #### [facility] ([facility]) [address] [place] [address] VIR SQUAMOUS EPITHELIUM 5 Normal 0-5 [facility] Comment on above: Order Comment: Urine received without preservative. Delays in transport may affect results. Interpret with caution. A clinical correlation is recommended. Performed By: #### U A #### [facility] ([facility]) [address] [place] [address] VIR TURBIDITY Clear Normal Clear [facility] Comment on above: Order Comment: Urine received without preservative. Delays in transport may affect results. Interpret with caution. A clinical correlation is recommended. Performed By: #### U A #### [facility] ([facility]) [address] [place] [address] VIR UROBILINOGEN <1.1 eu/dL Normal <1.1 eu/dL [facility] Comment on above: Order Comment: Urine received without preservative. Delays in transport may affect results. Interpret with caution. A clinical correlation is recommended. Performed By: #### U A #### [facility] ([facility]) [address] [place] [address] VIR W.B.CELLS 6 High 0-5 [facility] Comment on above: Order Comment: Urine received without preservative. Delays in transport may affect results. Interpret with caution. A clinical correlation is recommended. Performed By: #### U A #### [facility] ([facility]) [address] [place] [address] VIR URINE CULTUREon 01-28-2025 Bacteria identified Cx Nom (U) CULTURE RESULTS 10-50,000 ORGANISMS/mL NORMAL UROGENITAL ELODIA Normal [facility] Comment on above: Performed By: #### U C #### [facility] ([facility]) [address] [place] [address] VIR UrinalysisOrdered By: Khadar cortez on 01-28-2025 Bilirubin Ql (U) Negative Negative [facility] Color (U) Yellow Yellow [facility] Epithelial cells Auto (Urine sed) [#/Area] 5 0 - 5 [facility] Glucose (U) [Mass/Vol] Negative Negative Pr [facility] Hemoglobin Auto test strip Ql (U) Negative Negative [facility] Interpretation and review of laboratory results Abnormal [facility] Ketones (U) [Mass/Vol] Negative Negative Pr [facility] Leukocyte esterase Auto test strip Ql (U) Large Abnormal Negative [facility] Mucus Ql (Urine sed) Present Abnormal None [facility] Nitrite Auto test strip Ql (U) Negative Negative [facility] pH (U) 6 [pH] 5.0 - 8.5 [facility] Protein (U) [Mass/Vol] Negative Negative [facility] RBC Auto (Urine sed) [#/Area] 0 - 5 [facility] Specific gravity Refractometry automated (U) [Rel density] 1.021 1.003 - 1.035 [facility] Turbidity Ql (U) Clear Clear [facility] Urobilinogen Qn (U) {Larissa'U}/dL <1.1 eu/dL P [facility] WBC Auto (Urine sed) [#/Area] 6 High 0 - 5 [facility] Urine received witho ut preservative. Delays in transport may affect results. Interpret with caution. A clinical correlation is recommended. [facility] System Urinalysis, manual onlyon Bilirubin Ql (U) Negative Negative [facility] Color (U) Yellow Yellow [facility] Epithelial cells Auto (Urine sed) [#/Area] 5 [facility] Glucose (U) [Mass/Vol] Negative Negative NO [facility] Comment on above: Urine received witho ut preservative. Delays in transport may affect results. Interpret with caution. A clinical correlation is recommended. PERFORMED AT [facility] [address],[place] [address] The copy-to physician of this order is UDAY Anand ; JUN LAWSON The ordering physician of this order is JUN Carlisle Hemoglobin Auto test strip Ql (U) Negative Negative [facility] Interpretation and review of laboratory results Abnormal [facility] Ketones (U) [Mass/Vol] Negative Negative NO [facility] Leukocyte esterase Auto test strip Ql (U) Large Abnormal Negative [facility] Mucus Ql (Urine sed) Present Abnormal None [facility] Nitrite Auto test strip Ql (U) Negative Negative [facility] pH (U) 6 [pH] [facility] Protein (U) [Mass/Vol] Negative Negative [facility] RBC Auto (Urine sed) [#/Area] <1 [facility] Specific gravity Refractometry automated (U) [Rel density] 1.021 [facility] Turbidity Ql (U) Clear Clear [facility] Urobilinogen Qn (U) {Larissa'U}/dL <1.1 eu/dL N [facility] WBC Auto (Urine sed) [#/Area] 6 High [facility] VAGINITIS PANEL PCRon 04-30- 2025 VAGINITIS PANEL PCR BACT. VAGINOSIS DNA Not Detected Qualitative results are reported based on detection and quantitation of targeted organism markers which include: Lactobacillus spp. (L. crispatus and L. jensenii), Gardnerella vaginalis, Atopobium vaginae, Bacterial Vaginosis Associated Bacteria-2 (BVAB-2) and Megasphaera-1. FABIOLA SPECIES DNA Not Detected Fabiola species not detected include: C. albicans, C. tropicalis, C. parapsilosis or C. dubliniensis. FABIOLA KRUSEI DNA Not Detected No Fabiola krusei detected. FABIOLA GLABRATA DNA Not Detected No Fabiola glabrata detected. TRICHOMONAS VAG DNA Not Detected No Trichomonas vaginalis detected. BD MAX Vaginal Panel has not been evaluated for patients under 18 years old. Results for these patients should be reviewed and assessed in accordance with clinical presentation to determine patient diagnosis. [facility] Comment on above: Performed By: #### V PPCR #### [facility] ([facility]) [address] [place] [address] VIR Basophils Auto (Bld) [#/Vol] on 01-06-2025 Basophils (Bld) [#/Vol] Automated basophil count 0.0-0.1 [facility] Basophils/100 WBC Auto (Bld) on 01-06-2025 Basophils/100 WBC (Bld) Automated basophil % 0.2-2.0 [facility] Eosinophils/100 WBC Auto (Bl d)on 01-06-2025 Eosinophils/100 WBC (Bld) Automated eosinophil % 0.9-7.0 [facility] Erythrocyte distribution wid th Auto (RBC) [Ratio]on 01-06-2025 Erythrocyte distribution width (RBC) [Ratio] Erythrocyte distribution width [Ratio] by Automated count 11.0-15.0 [facility] Estimated glomerular filtrat ion rate (GFR) non- Americanon 01-06-2025 GFR/1.73 sq M.predicted among non-blacks MDRD (S/P/Bld) [Vol rate/Area] Estimated glomerular filtration rate (GFR) non- >=60 mL/min/1.7 3m 2 [facility] Hematocrit Auto (Bld) [Volum e fraction]on 01-06-2025 Hematocrit (Bld) [Volume fraction] Hematocrit [Volume Fraction] of Blood by Automated count 36.0-48.0 [facility] Hemoglobin [Mass/volume] in Bloodon 01-06-2025 Hemoglobin (Bld) [Mass/Vol] Hemoglobin [Mass/volume] in Blood 12.0-16.0 [facility] Iron binding capacity [Mass/ volume] in Serum or Plasmaon 01-06-2025 Iron binding capacity [Mass/Vol] Iron binding capacity [Mass/volume] in Serum or Plasma 250.0-450. 0 [facility] Iron saturation [Mass Fracti on] in Serum or Plasmaon 01-06-2025 Iron saturation [Mass fraction] Iron saturation [Mass Fraction] in Serum or Plasma [facility] Laboratory - Chemistry and C hemistry - challengeon 01-06-2025 Calcium [Mass/Vol] 9.2 mg/dL 8.5-10.1 [facility] Chloride [Moles/Vol] 105 mmol/L 98-107 [facility] CO2 [Moles/Vol] 28.2 mmol/L 21.0-32.0 [facility] Cobalamin (Vitamin B12) [Mass/Vol] 1032 pg/mL 232-1245 [facility] Comment on above: Performed at: [address] [id number] Director: Luis Mukherjee PhD, Phone: [phone] Creatinine [Mass/Vol] 0.91 mg/dL 0.55-1.02 [facility] Ferritin [Mass/Vol] 192.0 ng/mL 8.0-252.0 [facility] GFR/1.73 sq M.predicted MDRD (S/P/Bld) [Vol rate/Area] mL/min/{1.73_m2} >=60 mL/min/1.7 3m 2 [facility] Glucose [Mass/Vol] 106 mg/dL 74-106 [facility] Iron [Mass/Vol] 57.0 ug/dL 50.0-170.0 [facility] Potassium [Moles/Vol] 4.0 mmol/L 3.5-5.1 [facility] Sodium [Moles/Vol] 140 mmol/L 136-145 [facility] Urea nitrogen [Mass/Vol] 15.0 mg/dL 7.0-18.0 [facility] Urea nitrogen/Creatinine [Mass ratio] 16.5 mg/mg [facility] Laboratory - Hematology and Cell countson 01-06-2025 Immature granulocytes/100 WBC (Bld) 0.3 % 0.0-0.5 [facility] Leukocytes [#/volume] correc janell for nucleated erythrocytes in Blood by Automated counon 01-06-2025 WBC corrected for nucl RBC Auto (Bld) [#/Vol] Leukocytes [#/volume] corrected for nucleated erythrocytes in Blood by Automated coun 4.0-11.0 [facility] Lymphocytes Auto (Bld) [#/Vo l]on 01-06-2025 Lymphocytes (Bld) [#/Vol] Lymphocytes [#/volume] in Blood by Automated count 1.2-3.8 [facility] Lymphocytes/100 WBC Auto (Bl d)on 01-06-2025 Lymphocytes/100 WBC (Bld) Lymphocytes/100 leukocytes in Blood by Automated count 20.5-60.0 [facility] MCH Auto (RBC) [Entitic mass ]on 01-06-2025 MCH (RBC) [Entitic mass] MCH [Entitic mass] by Automated count 26.7-34.0 [facility] MCHC Auto (RBC) [Mass/Vol]on 01-06-2025 MCHC (RBC) [Mass/Vol] MCHC [Mass/volume] by Automated count 29.9-35.2 [facility] MCV Auto (RBC) [Entitic vol] on 01-06-2025 MCV (RBC) [Entitic vol] MCV [Entitic volume] by Automated count 81.0-99.0 [facility] Monocytes Auto (Bld) [#/Vol] on 01-06-2025 Monocytes (Bld) [#/Vol] Automated blood monocyte count 0.3-0.8 [facility] Monocytes/100 WBC Auto (Bld) on 01-06-2025 Monocytes/100 WBC (Bld) Automated monocyte % 1.7-12.0 [facility] Neutrophils Auto (Bld) [#/Vo l]on 01-06-2025 Neutrophils (Bld) [#/Vol] Neutrophils [#/volume] in Blood by Automated count 1.4-6.5 [facility] Neutrophils/100 WBC Auto (Bl d)on 01-06-2025 Neutrophils/100 WBC (Bld) Automated neutrophil % 43.0-75.0 [facility] No Panel Informationon 01-06 25-Hydroxy Vitamin D Total 32.8 ng/mL [facility] Comment on above: <20 ng/mL Vit D defi cient20-<30 ng/mL Vit D [id number] ng/mL Vit D sufficient>100 ng/mL Potential Toxicity Eosinophils # (Auto) 0.1 10 3/uL 0.0-0.7 [facility] Immature Granulocyte # (Auto) 0.02 10 3/uL 0.00-0.03 [facility] Platelet mean volume Auto (B ld) [Entitic vol]on 01-06-2025 Platelet mean volume (Bld) [Entitic vol] Platelet mean volume [Entitic volume] in Blood by Automated count Low 9.5-13.5 [facility] Platelets Auto (Bld) [#/Vol] on 01-06-2025 Platelets (Bld) [#/Vol] Platelets [#/volume] in Blood by Automated count 150-450 [facility] RBC Auto (Bld) [#/Vol]on RBC (Bld) [#/Vol] Erythrocytes [#/volu me] in Blood by Automated count 4.20-5.40 [facility] Serum or plasma anion gap de terminationon 01-06-2025 Anion gap [Moles/Vol] Serum or plasma an ion gap determination [facility] Glucose Glucometer (dC) [M ass/Vol]Ordered By: Paulino Hughes on 12-12-2024 Glucose [Mass/Vol] Capillary blood gluc ose measurement by glucometer (mass/volume) [facility] Comment on above: Random Glucose Refer ence Range is dependent on time and content of last meal. Glucose of more than 200 mg/dL in a nonstressed, ambulatory subject supports the diagnosis of Diabetes Mellitus. Glucose Poct Glucometerson 0 12-12-2024 Commemt1 Glu2: Cleaned Meter Normal [facility] Comment on above: Result Comment: PERF ORMED BY: [place] [id number] PATHOLOGIST HOSTESS HOST SHAW SAAVEDRA M.D. Performed By: #### G LULS ####Point of Care testing, Glucose [Mass/Vol] 99 mg/dL Normal [facility] Comment on above: Result Comment: [place] Glucose Reference Range is dependent on time and content of last meal. Glucose of more than 200 mg/dL in a nonstressed, ambulatory subject supports the diagnosis of Diabetes Mellitus. Performed By: #### G LULS ####Point of Care testing, No Panel InformationOrdered By: Paulino Hughes on 12-12-2024 Bedside Glucose Comment Glu2: cleaned meter [facility] X-ray reportOrdered By: Sherwin Parra on 12-12-2024 Study report [facility] Main [place] [address] [place] [id number] XRay Report Signed Patient: Nicol Smith MR#: [id number] : 1960 Acct:[id number] Age/Sex: 64 / F ADM Date: 5 Loc: Room: [address] [place] [address] Type: ADM IN Attending Dr: Paulino Hughes [...] Tony Parra M.D.12/12/2024 12:54 PM Dictation Location: [facility]-26 Transcribed By: SILVIA 12/12/24 1254 Dictated By: Tony Parra MD 12/12/24 1251 Signed By: 12/12/24 1254 [facility] Work Phone: XR abdomen 1Von 12-12-2024 XR abdomen 1V [facility] Main [place] [address] [place] [address] XRay Report Signed Patient: Nicol Smith MR#: [id number] 9 : 1960 Acct:[id number] Age/Sex: 64 / F ADM Date: 12/12/24 Loc: Room: [address] [place] [address] Type: ADM IN Attending Dr: Paulino Hughse MD Copies to: Paulino Hughes MD Ordering Provider: Paulino Hughes MD Date of [...] Tony Parra M.D.12/12/2024 12:54 PM Dictation Location: [facility]-26 Transcribed By: SILVIA 12/12/24 1254 Dictated By: Tony Parra MD 12/12/24 125 Signed By: 12/12/24 1254 Normal [facility] CT chest wo conon 12-10-2024 CT chest wo con [facility] Main [address] [address] [address] Scan Report Signed Patient: Nicol Smith MR#: [id number] 9 : 1960 Acct:[id number] Age/Sex: 64 / F ADM Date: 12/10/24 [facility]: Type: [facility] CLI Attending Dr: Paulino Hughes MD Copies to: Paulino Hughes MD Ordering Provider: Paulino Hughes MD Date of Service: 12/10/24 CT/CT chest wo con: K44.9 CT CHEST WITHOUT IV CONTRAST: CLINICAL HISTORY: Hiatal hernia. COMPARISON: None TECHNIQUE: Spiral images were obtained through the chest without IV contrast. This CT exam was performed using one or more following dose reduction techniques: Automated exposure control, adjustment of the mA and/or kV according to patient size, or use of iterative reconstruction technique. FINDINGS: Mediastinum:Thoracic aorta appears normal in caliber. Pulmonary trunk appears nondilated. No pericardial effusion. No lymphadenopathy. The esophagus is grossly unremarkable. A large hiatal hernia with organoaxial volvulus is noted. Lungs:Compressive atelectasis is seen involving the lower lobes surrounding the hiatal hernia. Bibasilar scarring. No consolidation pneumothorax or pleural effusion. 4 mm subpleural nodule left lower lobe series 4 image 52. Abd:No acute findings. Soft tissues/Bones: Soft tissues surrounding the chest wall demonstrate no acute findings. Osseous structures demonstrate degenerative change. CT/CT chest wo con IMPRESSION: Large hiatal hernia with organoaxial volvulus. 4 mm nodule left lower lobe. Fleischner Society guidelines for follow-up and management of incidentally detected pulmonary nodules: ? Single Solid Nodule: ? Nodule size less than 6 mm In a low-risk patient, no routine follow-up. In a high-risk patient, optional CT at 12 months. ? ? - Low risk patients include individuals with minimal or absent history of smoking and other known risk factors. ? - High risk patients include individuals with a history or smoking or known risk factors. ? Radiology 2017 http://pubs.rsna.org/doi/ full/10.1148/radiol.47490 11718 Impression dictated by: Stalin Matamoros Jr., Jose12/10/2024 1:36 PM Dictation Location: [facility]19 Transcribed By: SILVIA 12/10/24 1336 Dictated By: Stalin Matamoros Jr, DO 12/10/24 1334 Signed By: 12/10/24 1336 Normal [facility] IGP,APTIMA HPV,AGE GDLNon AGE GDLN ACOG TESTING Note . [facility] Comment on above: TESTS RESULT FLAG UN ITS REF RANGE LAB Clinician Provided Cytology Information Source.............Cervix Other..............Post Menopausal No. of containers..01 ThinPrep Vial Age Algo ACOG Asuncion... 30 01 FLAG LEGEND: L-Low Normal,H-High Normal,LL-Alert Low,HH-Alert High <-Panic Low,>-Panic High,A-Abnormal,AA-Critical Abnormal Performed at: 01 =G [address] [id number] Shreya Frances MD, HPV APTIMA Negative Negative [facility] Comment on above: This nucleic acid am plification test detects fourteen high- risk HPV types (16,18,31,33,35,39,45,51,52,56,58,59,66,68) without differentiation. Performed at: = - [address] [id number] Automotive Service Assistant: Shreya Frances MD, Phone: [phone] Performed at: - [address] [id number] Autom[employer] Service Assistant: Shreya Frances MD, Phone: [phone] IGP, APTIMA HPV, RFX 16/18,45 Note . [facility] Comment on above: TESTS RESULT FLAG UN ITS REF RANGE LAB DIAGNOSIS: 02 NEGATIVE FOR INTRAEPITHELIAL LESION OR MALIGNANCY. Specimen adequacy: 02 Satisfactory for evaluation. Endocervical and/or squamous metaplastic cells (endocervical component) are present. Performed by: 02 Day [facility] Resident Hall Director (ASCP) . 02 Note: Note 02 The Pap smear is a screening test designed to aid in the detection of premalignant and malignant conditions of the uterine cervix. It is not a diagnostic procedure and should not be used as the sole means of detecting cervical cancer. Both false-positive and false-negative reports do occur. Test Methodology: Note 02 This liquid based ThinPrep(R) pap test was screened with the use of an image guided system. HPV Genotype Reflex Note 02 Criteria not met, HPV Genotype not performed. FLAG LEGEND: L-Low Normal,H-High Normal,LL-Alert Low,HH-Alert High <-Panic Low,>-Panic High,A-Abnormal,AA-Critical Abnormal Performed at: 02 [facility] [address], [place] [address] Shreya Frances MD, [facility] Basic Metabolic Panelon Anion gap [Moles/Vol] 11.0 mmol/L Normal 6.0-15.0 e [facility] Comment on above: Performed By: #### C BC, BMP #### [address] Calcium [Mass/Vol] 9.4 mg/dL Normal 8.6-10.3 [facility] Comment on above: Result Comment: PERF ORMED BY: [place] [address] PATHOLOGIST HOSTESS HOST SHAW SAAVEDRA M.D. Performed By: #### C BC, BMP #### [address] Chloride [Moles/Vol] 105 mmol/L Normal 98-107 [facility] Comment on above: Performed By: #### C BC, BMP #### [address] CO2 [Moles/Vol] 29.4 mmol/L Normal 21.0-31.0 [facility] Comment on above: Performed By: #### C BC, BMP #### [address] Creatinine [Mass/Vol] 0.80 mg/dL Normal 0.60-1.20 [facility] Comment on above: Performed By: #### C BC, BMP #### [place] [address] [place] GFR/1.73 sq M.predicted MDRD (S/P/Bld) [Vol rate/Area] mL/min/{1.73_m2} Normal [facility] Comment on above: Performed By: #### C BC, BMP #### [address] Glucose [Mass/Vol] 105 mg/dL High 70-100 [facility] Comment on above: Result Comment: [place] Glucose Reference Range is dependent on time and content of last meal. Glucose of more than 200 mg/dL in a nonstressed, ambulatory subject supports the diagnosis of Diabetes Mellitus. ADA recommended reference range Performed By: #### C BC, BMP #### [address] Potassium [Moles/Vol] 4.4 mmol/L Normal 3.5-5.1 [facility] Comment on above: Performed By: #### C BC, BMP #### [facility] [address] Sodium [Moles/Vol] 141 mmol/L Normal 136-145 [facility] Comment on above: Performed By: #### C BC, BMP #### [facility] [address] Urea nitrogen [Mass/Vol] 15 mg/dL Normal 7-25 [facility] Comment on above: Performed By: #### C BC, BMP #### [facility] [address] Basophils Auto (Bld) [#/Vol] Ordered By: Paulino Hughes on 12-02-2024 Basophils (Bld) [#/Vol] Automated basophil count 0.0-0.2 [facility] Basophils/100 WBC Auto (Bld) Ordered By: Paulino Hughes on 12-02-2024 Basophils/100 WBC (Bld) Automated basophil % . [facility] Calcium [Mass/volume] in Ser um or PlasmaOrdered By: Paulino Hughes on 12-02-2024 Calcium [Mass/Vol] Calcium [Mass/volume ] in Serum or Plasma 8.6-10.3 [facility] Carbon dioxide, total [Moles /volume] in Serum or PlasmaOrdered By: Paulino Hughes on 12-02-2024 CO2 [Moles/Vol] Carbon dioxide, tota l [Moles/volume] in Serum or Plasma 21.0-31.0 [facility] Chloride [Moles/volume] in S adela or PlasmaOrdered By: Paulino Hughes on 12-02-2024 Chloride [Moles/Vol] Chloride [Moles/vol ume] in Serum or Plasma 98-107 [facility] Complete Blood Count Auto Di ffon 12-02-2024 Basophils (Bld) [#/Vol] 0.1 10*3/uL Normal 0.0-0.2 [facility] Comment on above: Result Comment: PERF ORMED BY: [facility] [address] [facility] [place] [address] PATHOLOGIST HOSTESS HOST SHAW SAAVEDRA M.D. Performed By: #### C BC, BMP #### [facility] [address] [place] [address] [place] Basophils/100 WBC (Bld) 0.7 % Normal . [facility] Comment on above: Performed By: #### C BC, BMP #### [facility] [address] [place] [address] [place] Eosinophils (Bld) [#/Vol] 0.1 10*3/uL Normal 0.0-0.45 [facility] Comment on above: Performed By: #### C BC, BMP #### [facility] [address] Eosinophils/100 WBC (Bld) 1.2 % Normal . [facility] Comment on above: Performed By: #### C BC, BMP #### [address] Erythrocyte distribution width (RBC) [Ratio] 16.1 % High 11.9-15.3 [facility] Comment on above: Performed By: #### C BC, BMP #### [address] Hematocrit (Bld) [Volume fraction] 43.4 % Normal 34.0-46.4 [facility] Comment on above: Performed By: #### C BC, BMP #### [place] [address] [place] Hemoglobin (Bld) [Mass/Vol] 14.7 g/dL Normal 11.8-15.4 [facility] Comment on above: Performed By: #### C BC, BMP #### [facility] [address] [place] [address] [place] Lymphocytes (Bld) [#/Vol] 1.9 10*3/uL Normal 1.00-4.8 [facility] Comment on above: Performed By: #### C BC, BMP #### [facility] [address] [place] [address] [place] Lymphocytes/100 WBC (Bld) 24.8 % Normal . [facility] Comment on above: Performed By: #### C BC, BMP #### [address] MCH (RBC) [Entitic mass] 30.3 pg Normal 24.7-34.3 [facility] Comment on above: Performed By: #### C BC, BMP #### [address] MCV (RBC) [Entitic vol] 89.5 fL Normal 80-100 [facility] Comment on above: Performed By: #### C BC, BMP #### [address] Mean Corpuscular HGB Conc 33.8 g/dL Normal 32.0-35.0 [facility] Comment on above: Performed By: #### C BC, BMP #### [address] Monocytes (Bld) [#/Vol] 0.6 10*3/uL Normal 0.0-0.8 [facility] Comment on above: Performed By: #### C BC, BMP #### [address] Monocytes/100 WBC (Bld) 7.6 % Normal . [facility] Comment on above: Performed By: #### C BC, BMP #### [address] Neutrophils (Bld) [#/Vol] 5.1 10*3/uL Normal 1.8-7.7 [facility] Comment on above: Performed By: #### C BC, BMP #### [place] [address] [place] Neutrophils/100 WBC (Bld) 65.7 % Normal . [facility] Comment on above: Performed By: #### C BC, BMP #### [address] NRBC% 0.1 /100{WBC} Normal 0-0.5 [facility] Comment on above: Performed By: #### C BC, BMP #### [facility] [address] [place] [id number] [place] Platelet mean volume (Bld) [Entitic vol] 7.3 fL Normal 6.3-10.7 [facility] Comment on above: Performed By: #### C BC, BMP #### [facility] [address] [place] [address] [place] Platelets (Bld) [#/Vol] 326 10*3/uL Normal 150-450 [facility] Comment on above: Performed By: #### C BC, BMP #### [facility] [address] [place] [address] [facility] RBC (Bld) [#/Vol] 4.85 10*6/uL Normal 3.60-5.00 [facility] Comment on above: Performed By: #### C BC, BMP #### [facility] [address] [place] [address] [place] WBC (Bld) [#/Vol] 7.8 10*3/uL Normal 3.8-11.6 [facility] Comment on above: Performed By: #### C BC, BMP #### [facility] [address] [place] [id number] [place] Creatinine [Mass/volume] in Serum or PlasmaOrdered By: Paulino Hughes on 12-02-2024 Creatinine [Mass/Vol] Creatinine [Mass/v olume] in Serum or Plasma 0.60-1.20 [facility] Eosinophils Auto (Bld) [#/Vo l]Ordered By: Paulino Hughes on 12-02-2024 Eosinophils (Bld) [#/Vol] Automated eosinophil count 0.0-0.45 [facility] Eosinophils/100 WBC Auto (Bl d)Ordered By: Paulino Hughes on 12-02-2024 Eosinophils/100 WBC (Bld) Automated eosinophil % . [facility] Erythrocyte distribution wid th Auto (RBC) [Ratio]Ordered By: Paulino Hughes on 12-02-2024 Erythrocyte distribution width (RBC) [Ratio] Erythrocyte distribution width [Ratio] by Automated count High 11.9-15.3 [facility] Glucose [Mass/volume] in Ser um or PlasmaOrdered By: Paulino Hughes on 12-02-2024 Glucose [Mass/Vol] Glucose [Mass/volume ] in Serum or Plasma High 70-100 [facility] Comment on above: ADA recommended refe rence rangeRandom Glucose Reference Range is dependent on time and content of last meal. Glucose of more than 200 mg/dL in a nonstressed, ambulatory subject supports the diagnosis of Diabetes Mellitus. Hematocrit Auto (Bld) [Volum e fraction]Ordered By: Paulino Hughes on 12-02-2024 Hematocrit (Bld) [Volume fraction] Hematocrit [Volume Fraction] of Blood by Automated count 34.0-46.4 [facility] Hemoglobin [Mass/volume] in BloodOrdered By: Paulino Hughes on 12-02-2024 Hemoglobin (Bld) [Mass/Vol] Hemoglobin [Mass/volume] in Blood 11.8-15.4 [facility] Leukocytes [#/volume] correc janell for nucleated erythrocytes in Blood by Automated counOrdered By: Paulino Hughes on 12-02-2024 WBC corrected for nucl RBC Auto (Bld) [#/Vol] Leukocytes [#/volume] corrected for nucleated erythrocytes in Blood by Automated coun 3.8-11.6 [facility] Lymphocytes Auto (Bld) [#/Vo l]Ordered By: Paulino Hughes on 12-02-2024 Lymphocytes (Bld) [#/Vol] Lymphocytes [#/volume] in Blood by Automated count 1.00-4.8 [facility] Lymphocytes/100 WBC Auto (Bl d)Ordered By: Paulino Hughes on 12-02-2024 Lymphocytes/100 WBC (Bld) Lymphocytes/100 leukocytes in Blood by Automated count . [facility] MCH Auto (RBC) [Entitic mass ]Ordered By: Paulino Hughes on 12-02-2024 MCH (RBC) [Entitic mass] MCH [Entitic mass] by Automated count 24.7-34.3 [facility] MCHC Auto (RBC) [Mass/Vol]Or dered By: Paulino Hughes on 12-02-2024 MCHC (RBC) [Mass/Vol] MCHC [Mass/volume] by Automated count 32.0-35.0 [facility] MCV Auto (RBC) [Entitic vol] Ordered By: Paulino Hughes on 12-02-2024 MCV (RBC) [Entitic vol] MCV [Entitic volume] by Automated count 80-100 [facility] Monocytes Auto (Bld) [#/Vol] Ordered By: Paulino Hughes on 12-02-2024 Monocytes (Bld) [#/Vol] Automated blood monocyte count 0.0-0.8 [facility] Monocytes/100 WBC Auto (Bld) Ordered By: Paulino Hughes on 12-02-2024 Monocytes/100 WBC (Bld) Automated monocyte % . [facility] Neutrophils Auto (Bld) [#/Vo l]Ordered By: Paulino Hughes on 12-02-2024 Neutrophils (Bld) [#/Vol] Neutrophils [#/volume] in Blood by Automated count 1.8-7.7 [facility] Neutrophils/100 WBC Auto (Bl d)Ordered By: Paulino Hughes on 12-02-2024 Neutrophils/100 WBC (Bld) Automated neutrophil % . [facility] No Panel InformationOrdered By: Paulino Hughes on 12-02-2024 Estimated GFR (CKD-EPI) > 60.0 mL/Min [facility] Pharmacy Creatinine Clearance (Chem N/A [facility] Nucleated erythrocytes [Pres ence] in Blood by Automated countOrdered By: Paulino Hughes on 12-02-2024 Nucleated RBC Auto Ql (Bld) Nucleated erythrocytes [Presence] in Blood by Automated count 0-0.5 [facility] Platelet mean volume Auto (B ld) [Entitic vol]Ordered By: Paulino Hughes on 12-02-2024 Platelet mean volume (Bld) [Entitic vol] Platelet mean volume [Entitic volume] in Blood by Automated count 6.3-10.7 [facility] Platelets Auto (Bld) [#/Vol] Ordered By: Paulino Hughes on 12-02-2024 Platelets (Bld) [#/Vol] Platelets [#/volume] in Blood by Automated count 150-450 [facility] Potassium [Moles/volume] in Serum or PlasmaOrdered By: Paulino Hughes on 12-02-2024 Potassium [Moles/Vol] Potassium [Moles/v olume] in Serum or Plasma 3.5-5.1 [facility] RBC Auto (Bld) [#/Vol]Ordere d By: Paulino Hughes on 12-02-2024 RBC (Bld) [#/Vol] Erythrocytes [#/volu me] in Blood by Automated count 3.60-5.00 [facility] Serum or plasma anion gap de terminationOrdered By: Paulino Hughes on 12-02-2024 Anion gap [Moles/Vol] Serum or plasma an ion gap determination 6.0-15.0 [facility] Sodium [Moles/volume] in Ser um or PlasmaOrdered By: Paulino Hughes on 12-02-2024 Sodium [Moles/Vol] Sodium [Moles/volume ] in Serum or Plasma 136-145 [facility] Urea nitrogen [Mass/volume] in Serum or PlasmaOrdered By: Paulino Hughes on 12-02-2024 Urea nitrogen [Mass/Vol] Urea nitrogen [Mass/volume] in Serum or Plasma 7-25 [facility] WBC Auto (Bld) [#/Vol]Ordere d By: Paulino Hughes on 12-02-2024 WBC (Bld) [#/Vol] Leukocytes [#/volume ] in Blood by Automated count 3.8-11.6 [facility] Human papilloma virus 16+18+ 31+33+35+39+45+51+52+56+58+59+66+68 DNA [Presence] in [place] 12-01-2024 HPV 16+18+31+33+35+39+45+5 1+52+56+58+59+66+68 DNA Probe+sig amp Ql (Cvx) Human papilloma virus 16+18+31+33+35+39+45+51+5 2+56+58+59+66+68 DNA [Presence] in Cer Negative [facility] Comment on above: This nucleic acid am plification test detects fourteen high- risk HPV types (16,18,31,33,35,39,45,51,52,56,58,59,66,68)without differentiation.Performed at: [address] [id number] Director: Shreya Frances MD, Phone: [phone] at: - [facility] [address] [facility] Health InstituteAndrea [place], [place] [id number] Director: Shreya Frances MD, Phone: [phone] No Panel Informationon 12-01 HPV High Risk Other Comment Note . [facility] Comment on above: TESTS RESULT FLAG UN ITS REF RANGE LAB DIAGNOSIS: 02 NEGATIVE FOR INTRAEPITHELIAL LESION OR MALIGNANCY.Specimen adequacy: 02 Satisfactory for evaluation. Endocervical and/or squamous metaplastic cells (endocervical component) are present.Performed by: Yamile Kelly, Resident Hall Director (ASCP). 02Note: Note 02 The Pap smear is a screening test designed to aid in the detection of premalignant and malignant conditions of the uterine cervix. It is not a diagnostic procedure and should not be used as the sole means of detecting cervical cancer. Both false-positive and false-negative reports do occur.Test Methodology: Note 02 This liquid based ThinPrep(R) pap test was screened with the use of an image guided system.HPV Genotype Reflex Note 02 Criteria not met, HPV Genotype not performed. ------- FLAG LEGEND: L-Low Normal,H-High Normal,LL-Alert Low,HH-Alert High <-Panic Low,>-Panic High,A-Abnormal,AA-Critical Abnormal -----Performed at:02 [facility] [place] [address] [place] [address] Shreya Frances MD, Reference Lab Test Patient Age Note . [facility] Comment on above: TESTS RESULT FLAG UN ITS REF RANGE LAB Clinician Provided Cytology Information Source.............Cervix Other..............Post Menopausal No. of containers..01 ThinPrep VialAge Algo ACOG Asuncion... FLAG LEGEND: L-Low Normal,H-High Normal,LL-Alert Low,HH-Alert High <-Panic Low,>-Panic High,A-Abnormal,AA-Critical Abnormal -----Performed at:01 =[address] [address] Shreya Frances MD, MM TOMOSYNTHESIS SCREENING B [facility] 11-14-2024 [facility] [address] [place] [address] Mammography Report Signed Patient: NICOL SMITH MR#: [id number] : 1960 Acct:[id number] Age/Sex: 64 / F ADM Date: 11/11/24 Loc: MAMMO Attending Dr: Uday Wray D.O. Ordering Physician: Uday Wray D.O. Results: Date of Service: 11/11/24 Follow Up: Procedure(s): MM tomosynthesis screening BI Accession Number(s): [id number] cc: Waqas Pierce M.D.; Uday Wray D.O. Patient Name: NICOL SMITH MR#: [id number] : 1960 Exam Date: 11/11/2024 Ordering Doctor: DR Uday Wray . RADIOLOGY [...] uterine cancer at age 52. LOCATION: [facility] BREAST COMPOSITION: There are scattered areas [...] PALPABLE LUMP SHOULD BE BIOPSIED. Dictated by: Ariela Schwab M.D. on 11/14/2024 at 10:43 Approved by: Ariela Schwab M.D. on 11/14/2024 at 10:46 Dictated By: Ariela Schwab M.D. 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 Ordering Physician: Uday Wray D.O. Results: Date of Service: 11/11/24 Follow Up: Procedure(s): MM tomosynthesis screening BI Accession Number(s): [id number] cc: Waqas Pierce M.D.; Uday Wray D.O. Patient Name: NICOL SMITH MR#: [id number] : 1960 Exam Date: 11/11/2024 Ordering Doctor: DR Uday Wray . RADIOLOGY [...] uterine cancer at age 52. LOCATION: [facility] BREAST COMPOSITION: There are scattered areas [...] PALPABLE LUMP SHOULD BE BIOPSIED. Dictated by: Ariela Schwab M.D. on 11/14/2024 at 10:43 Approved by: Ariela Schwab M.D. on 11/14/2024 at 10:46 Dictated By: Ariela Schwab M.D. Signed By: 11/14/24 1048 DD/ 1046 TD/TT: Vegetable [employer] Worker: [facility] Radiology Study observation (narrative) [facility] MM TOMOSYNTHESIS SCREENING B IOrdered By: Radiologist Radiology on 11-14-2024 [facility] Work Phone: SANCHEZ with Reflexon 11-11-2024 SANCHEZ with Reflex Negative Normal Negative [facility] Comment on above: Result Comment: Perf ormed at: [facility] [address] [place] [id number] Automotive Service Assistant: Luis Mukherjee PhD, Phone: [phone] Performed By: #### L IPID, FE and TIBC, PT, HEPATIC, SCAN CBC, KELLY ####[facility] [address]#### ALPHA PHEN, SANCHEZ CHOICE, HCV RX PCR, HBCAB, CERULOP, SMAB, HBSAG, HBSAB ####[facility] , Actin smooth muscle IgG Ab [ Units/volume] in SerumOrdered By: Esau Busch on 11-11-2024 Actin smooth muscle IgG Qn (S) Actin smooth muscle IgG Ab [Units/volume] in Serum High 0-19 [facility] Comment on above: Negative 0 - 19 Weak positive 20 - 30 Moderate to strong positive >30 Actin Antibodies are found in 52-85% of patients with autoimmune hepatitis or chronic active hepatitis and in 22% of patients with primary biliary cirrhosis.Performed at: [facility] [id number] Director: Luis Mukherjee PhD, Phone: [phone] Alanine aminotransferase [En zymatic activity/volume] in Serum or PlasmaOrdered By: Esau Busch on 11-11-2024 ALT [Catalytic activity/Vol] Alanine aminotransferase [Enzymatic activity/volume] in Serum or Plasma [facility] Albumin [Mass/volume] in Ser um or Plasma by Bromocresol green (BCG) dye binding methoOrdered By: Esau Busch on 11-11-2024 Albumin BCG dye [Mass/Vol] Albumin [Mass/volume] in Serum or Plasma by Bromocresol green (BCG) dye binding metho 3.5-5.7 [facility] Alkaline phosphatase [Enzyma tic activity/volume] in Serum or PlasmaOrdered By: Esau Busch on 11-11-2024 ALP [Catalytic activity/Vol] Alkaline phosphatase [Enzymatic activity/volume] in Serum or Plasma 34-104 [facility] Mgynb-4-Hnngzfuuwis Phenotyp nabeel 11-11-2024 Alpha 1 Anti-Trypsin 132 mg/dL Normal 101-187 [facility] Comment on above: Performed By: #### L IPID, FE and TIBC, PT, HEPATIC, SCAN CBC, KELLY ####[facility]#### ALPHA PHEN, SANCHEZ CHOICE, HCV RX PCR, HBCAB, CERULOP, SMAB, HBSAG, HBSAB ####[facility] , Phenotype (P1) MM Normal . [facility] Comment on above: Result Comment: MM Phenotype is considered to be normal , producing normal serum levels of xnbpm-5-gomwymsv inhibitor and not associated with clinical disease. Associated A1A total serum levels in other phenotypes and their incidence in the general population are shown in the table below. Phenotype Population % function A-1-AT Conc.* Incidence % compared to MM (Typical Range) MM 86.5% 100% (96 - 189) MS 8.0% 86% (83 - 161) MZ 3.9% 61% (60 - 111) FM 0.4% 100% (93 - 191) SZ 0.3% 41% (42 - 75) SS 0.1% 64% (62 - 119) ZZ 0.05% 19% (16 - 38) FS 0.05% 70% (70 - 128) FZ Unknown 46% (44 - 88) FF Unknown Unknown *A-1-AT concentration in the homozygous MM phenotype is taken as the reference normal. Percent deficiency in each phenotype is reported relative to this reference. Ranges used to confirm phenotype. Performed at: [facility] [address] [id number] Automotive Service Assistant: Luis Mukherjee PhD, Phone: [phone] Performed at: [facility] [address] [id number] Automotive Service Assistant: Nereida Talbot MD, Phone: [phone] Performed By: #### L IPID, FE and TIBC, PT, HEPATIC, SCAN CBC, KELLY ####[facility]#### ALPHA PHEN, SANCHEZ CHOICE, HCV RX PCR, HBCAB, CERULOP, SMAB, HBSAG, HBSAB ####[facility] , Anisocytosis LM Ql (Bld)Orde red By: Esau Busch on 11-11-2024 Anisocytosis Ql (Bld) Anisocytosis [Pres ence] in Blood by Light microscopy [facility] Aspartate aminotransferase [ Enzymatic activity/volume] in Serum or PlasmaOrdered By: Esau Busch on 11-11-2024 AST [Catalytic activity/Vol] Aspartate aminotransferase [Enzymatic activity/volume] in Serum or Plasma 13-39 [facility] Basophils Auto (Bld) [#/Vol] Ordered By: Esau Busch on 11-11-2024 Basophils (Bld) [#/Vol] Automated basophil count 0.0-0.2 [facility] Basophils/100 WBC Auto (Bld) Ordered By: Esau Busch on 11-11-2024 Basophils/100 WBC (Bld) Automated basophil % . [facility] Bilirubin.direct [Mass/volum e] in Serum or PlasmaOrdered By: Esau Busch on 11-11-2024 Bilirubin.direct [Mass/Vol] Bilirubin.direct [Mass/volume] in Serum or Plasma 0.03-0.18 [facility] Bilirubin.total [Mass/volume ] in Serum or PlasmaOrdered By: Esau Busch on 11-11-2024 Bilirubin [Mass/Vol] Bilirubin.total [Mass/volume] in Serum or Plasma 0.3-1.0 [facility] Ceruloplasminon 11-11-2024 Ceruloplasmin 23.7 mg/dL Normal 19.0-39.0 [facility] Comment on above: Result Comment: Perf ormed at: CB - [facility] [address] [id number] Automotive Service Assistant: Luis Mukherjee PhD, Phone: [phone] PERFORMED BY: [facility] [address] [place] [address] PATHOLOGIST HOSTESS HOST SHAW SAAVEDRA M.D. Performed By: #### L IPID, FE and TIBC, PT, HEPATIC, SCAN CBC, KELLY ####[facility] [address]#### ALPHA PHEN, SANCHEZ CHOICE, HCV RX PCR, HBCAB, CERULOP, SMAB, HBSAG, HBSAB ####[facility] , Cholesterol [Mass/volume] in Serum or PlasmaOrdered By: Esau Busch on 11-11-2024 Cholesterol [Mass/Vol] Cholesterol [Mass /volume] in Serum or Plasma 140-200 [facility] Comment on above: Chol less than 200 m g/dl low riskChol 201-239 mg/dl borderline riskChol 240 mg/dl and greater high risk Cholesterol in HDL [Mass/vol ume] in Serum or PlasmaOrdered By: Esau Busch on 11-11-2024 Cholesterol in HDL [Mass/Vol] Serum or plasma high density lipoprotein (HDL) cholesterol measurement 23-92 [facility] Comment on above: HDL CHOL ATP-III CLA SSIFICATION Cardiovascular RiskHDL > or equal to 60 mg/dL LOWHDL < 40 mg/dL HIGH Cholesterol in LDL Calc [Mas s/Vol]Ordered By: Esau Busch on 11-11-2024 Cholesterol in LDL [Mass/Vol] Cholesterol in LDL [Mass/volume] in Serum or Plasma by calculation 0-100 [facility] Comment on above: LDL ATP III CLASSIFI CATIONLDL less than 100 mg/dL OptimalLDL 100-129 mg/dL Near or above optimalLDL 130-159 mg/dL Borderline highLDL 160-189 mg/dL HighLDL greater than 189 mg/dL Very high Cholesterol in VLDL Calc [Ma ss/Vol]Ordered By: Esau Busch on 11-11-2024 Cholesterol in VLDL [Mass/Vol] Cholesterol in VLDL [Mass/volume] in Serum or Plasma by calculation [facility] Eosinophils Auto (Bld) [#/Vo l]Ordered By: Esau Busch on 11-11-2024 Eosinophils (Bld) [#/Vol] Automated eosinophil count 0.0-0.45 [facility] Eosinophils/100 WBC Auto (Bl d)Ordered By: Esau Busch on 11-11-2024 Eosinophils/100 WBC (Bld) Automated eosinophil % . [facility] Erythrocyte distribution wid th Auto (RBC) [Ratio]Ordered By: Esau Busch on 11-11-2024 Erythrocyte distribution width (RBC) [Ratio] Erythrocyte distribution width [Ratio] by Automated count High 11.9-15.3 [facility] Erythrocyte morphology findi ng [Identifier] in BloodOrdered By: Esau Busch on 11-11-2024 RBC morphology finding Nom (Bld) RBC morphology [facility] Ferritinon 11-11-2024 Ferritin [Mass/Vol] 137.1 ng/mL Normal 11.0-306.8 [facility] Comment on above: Performed By: #### L IPID, FE and TIBC, PT, HEPATIC, SCAN CBC, KELLY ####[facility]#### ALPHA PHEN, SANCHEZ CHOICE, HCV RX PCR, HBCAB, CERULOP, SMAB, HBSAG, HBSAB ####[facility] , Ferritin [Mass/volume] in Se rum or PlasmaOrdered By: Esau Busch on 11-11-2024 Ferritin [Mass/Vol] Ferritin [Mass/volum e] in Serum or Plasma 11.0-306.8 [facility] Globulin Calc (S) [Mass/Vol] Ordered By: Esau Busch on 11-11-2024 Globulin (S) [Mass/Vol] Serum globulin measurement by calculation (mass/volume) [facility] Hematocrit Auto (Bld) [Volum e fraction]Ordered By: Esau Busch on 11-11-2024 Hematocrit (Bld) [Volume fraction] Hematocrit [Volume Fraction] of Blood by Automated count 34.0-46.4 [facility] Hemoglobin [Mass/volume] in BloodOrdered By: Esau Busch on 11-11-2024 Hemoglobin (Bld) [Mass/Vol] Hemoglobin [Mass/volume] in Blood 11.8-15.4 [facility] Hep C Ab wRfx to Qnt PCRon 0 11-11-2024 Hepatitis C Virus Antibody Non-Reactive Normal Non Reactive [facility] Comment on above: Performed By: #### L IPID, FE and TIBC, PT, HEPATIC, SCAN CBC, KELLY ####[facility]#### ALPHA PHEN, SANCHEZ CHOICE, HCV RX PCR, HBCAB, CERULOP, SMAB, HBSAG, HBSAB ####[facility] , Interpretation Hepatitis C Comment Normal . [facility] Comment on above: Result Comment: Not infected with HCV unless early or acute infection is suspected (which may be delayed in an immunocompromised individual), or other evidence exists to indicate HCV infection. Performed By: #### L IPID, FE and TIBC, PT, HEPATIC, SCAN CBC, KELLY ####[place] [address] [address]#### ALPHA PHEN, SANCHEZ CHOICE, HCV RX PCR, HBCAB, CERULOP, SMAB, HBSAG, HBSAB ####[facility] , Hepatic Panelon 11-11-2024 Albumin [Mass/Vol] 4.3 g/dL Normal 3.5-5.7 [facility] Comment on above: Performed By: #### L IPID, FE and TIBC, PT, HEPATIC, SCAN CBC, KELLY ####[place] [address] [address]#### ALPHA PHEN, SANCHEZ CHOICE, HCV RX PCR, HBCAB, CERULOP, SMAB, HBSAG, HBSAB ####[facility] , Albumin/Globulin [Mass ratio] 1.8 {ratio} Normal [facility] Comment on above: Performed By: #### L IPID, FE and TIBC, PT, HEPATIC, SCAN CBC, KELLY ####[place] [address] [address]#### ALPHA PHEN, SANCHEZ CHOICE, HCV RX PCR, HBCAB, CERULOP, SMAB, HBSAG, HBSAB ####[facility] , ALP [Catalytic activity/Vol] 100 U/L Normal 34-104 [facility] Comment on above: Performed By: #### L IPID, FE and TIBC, PT, HEPATIC, SCAN CBC, KELLY ####[address]#### ALPHA PHEN, SANCHEZ CHOICE, HCV RX PCR, HBCAB, CERULOP, SMAB, HBSAG, HBSAB ####[facility] , ALT [Catalytic activity/Vol] 18 U/L Normal 7-52 [facility] Comment on above: Performed By: #### L IPID, FE and TIBC, PT, HEPATIC, SCAN CBC, KELLY ####[address]#### ALPHA PHEN, SANCHEZ CHOICE, HCV RX PCR, HBCAB, CERULOP, SMAB, HBSAG, HBSAB ####[facility] , AST [Catalytic activity/Vol] 14 U/L Normal 13-39 [facility] Comment on above: Performed By: #### L IPID, FE and TIBC, PT, HEPATIC, SCAN CBC, KELLY ####[address]#### ALPHA PHEN, SANCHEZ CHOICE, HCV RX PCR, HBCAB, CERULOP, SMAB, HBSAG, HBSAB ####[facility] , Bilirubin [Mass/Vol] 0.5 mg/dL Normal 0.3-1.0 [facility] Comment on above: Performed By: #### L IPID, FE and TIBC, PT, HEPATIC, SCAN CBC, KELLY ####[place] [address] [place]#### ALPHA PHEN, SANCHEZ CHOICE, HCV RX PCR, HBCAB, CERULOP, SMAB, HBSAG, HBSAB ####[facility] , Bilirubin,Indirect 0.4 mg/dL Normal [facility] Comment on above: Performed By: #### L IPID, FE and TIBC, PT, HEPATIC, SCAN CBC, KELLY ####[address]#### ALPHA PHEN, SANCHEZ CHOICE, HCV RX PCR, HBCAB, CERULOP, SMAB, HBSAG, HBSAB ####[facility] , Bilirubin.indirect [Mass/Vol] 0.10 mg/dL Normal 0.03-0.18 [facility] Comment on above: Performed By: #### L IPID, FE and TIBC, PT, HEPATIC, SCAN CBC, KELLY ####[place] [address] [place]#### ALPHA PHEN, SANCHEZ CHOICE, HCV RX PCR, HBCAB, CERULOP, SMAB, HBSAG, HBSAB ####[facility] , Globulin (S) [Mass/Vol] 2.4 g/dL Normal [facility] Comment on above: Performed By: #### L IPID, FE and TIBC, PT, HEPATIC, SCAN CBC, KELLY ####[address]#### ALPHA PHEN, SANCHEZ CHOICE, HCV RX PCR, HBCAB, CERULOP, SMAB, HBSAG, HBSAB ####[facility] , Protein [Mass/Vol] 6.7 g/dL Normal 6.4-8.9 [facility] Comment on above: Performed By: #### L IPID, FE and TIBC, PT, HEPATIC, SCAN CBC, KELLY ####[address]#### ALPHA PHEN, SANCHEZ CHOICE, HCV RX PCR, HBCAB, CERULOP, SMAB, HBSAG, HBSAB ####[facility] , Hepatitis B Core Antibodyon 11-11-2024 Hepatitis B Core Antibody Negative Normal Negative [facility] Comment on above: Result Comment: Perf ormed at: - [facility] [address] [id number] [employer] Service Assistant: Luis Mukherjee PhD, Phone: [phone] Performed By: #### L IPID, FE and TIBC, PT, HEPATIC, SCAN CBC, KELLY ####[place] [address] [place]#### ALPHA PHEN, SANCHEZ CHOICE, HCV RX PCR, HBCAB, CERULOP, SMAB, HBSAG, HBSAB ####[facility] , Hepatitis B Surface Antibody on 11-11-2024 Hepatitis B Surface Antibody Reactive Normal . [facility] Comment on above: Result Comment: Non Reactive: Not immune to HBV infection. Equivocal: Unable to determine if anti-HBs is present at levels consistent with immunity. Reactive: Anti-HBs concentration detected at greater than 10 mIU/mL. Individual is considered to be immune to infection with HBV. Performed By: #### L IPID, FE and TIBC, PT, HEPATIC, SCAN CBC, KELLY ####[facility]#### ALPHA PHEN, SANCHEZ CHOICE, HCV RX PCR, HBCAB, CERULOP, SMAB, HBSAG, HBSAB ####[facility] , Hepatitis B Surface Antigeno n 11-11-2024 HBsAg Screen Negative Normal Negative [facility] Comment on above: Result Comment: PERF ORMED BY: [facility] [address] [place] [address] PATHOLOGIST HOSTESS HOST SHAW SAAVEDRA M.D. Performed By: #### L IPID, FE and TIBC, PT, HEPATIC, SCAN CBC, KELLY ####[address]#### ALPHA PHEN, SANCHEZ CHOICE, HCV RX PCR, HBCAB, CERULOP, SMAB, HBSAG, HBSAB ####[facility] , Hepatitis B virus core antib curtis assayOrdered By: Esau Busch on 11-11-2024 Hepatitis B Core Total Antibody Negative Negative [facility] Comment on above: Performed at: [address] [id number] Director: Luis Mukherjee PhD, Phone: [phone] Hepatitis C virus IgG Ab [Pr esence] in Serum or Plasma by ImmunoassayOrdered By: Easu Busch on 11-11-2024 HCV IgG IA Ql Hepatitis C virus Ig G Ab [Presence] in Serum or Plasma by Immunoassay Non Reactive [facility] INR in Platelet poor plasma by Coagulation assayOrdered By: Esau Busch on 11-11-2024 INR Coag (PPP) [Relative time] INR in Platelet poor plasma by Coagulation assay [facility] Comment on above: INR Therapeutic Rang e A) Pre- and Peroperative OAT started two weeks before surgery. NOT HIP SURGERY: 1.5 - 2.5 HIP SURGERY: 2 - 3B) Primary and secondary prevention of venous THROMBOSIS: 2 - 3C) Active venous thrombosis, pulmonary embolismand prevention of recurrent venous thrombosis: 2 - 3D) Prevention of arterial thromboembolismincluding patients with mechanical heart valves: 3 - 4.5 Iron [Mass/volume] in Serum or PlasmaOrdered By: Esau Busch on 11-11-2024 Iron [Mass/Vol] Iron [Mass/volume] i n Serum or Plasma 50-212 [facility] Iron and TIBC Profileon 11-01 % Iron Saturation 27.7 % Normal 20-50 [facility] Comment on above: Performed By: #### L IPID, FE and TIBC, PT, HEPATIC, SCAN CBC, KELLY ####[place] [address] [place] [address] [place]#### ALPHA PHEN, SANCHEZ CHOICE, HCV RX PCR, HBCAB, CERULOP, SMAB, HBSAG, HBSAB ####[facility] , Iron [Mass/Vol] 99 ug/dL Normal 50-212 [facility] Comment on above: Performed By: #### L IPID, FE and TIBC, PT, HEPATIC, SCAN CBC, KELLY ####[place] [address] [place] [address] [place]#### ALPHA PHEN, SANCHEZ CHOICE, HCV RX PCR, HBCAB, CERULOP, SMAB, HBSAG, HBSAB ####[facility] , Total Iron Binding Capacity 357 ug/dL Normal 255-450 [facility] Comment on above: Performed By: #### L IPID, FE and TIBC, PT, HEPATIC, SCAN CBC, KELLY ####[place] [address] [place]#### ALPHA PHEN, SANCHEZ CHOICE, HCV RX PCR, HBCAB, CERULOP, SMAB, HBSAG, HBSAB ####[facility] , Transferrin [Mass/Vol] 255 mg/dL Normal 203-362 [facility] Comment on above: Performed By: #### L IPID, FE and TIBC, PT, HEPATIC, SCAN CBC, KELLY ####[facility]#### ALPHA PHEN, SANCHEZ CHOICE, HCV RX PCR, HBCAB, CERULOP, SMAB, HBSAG, HBSAB ####[facility] , Leukocytes [#/volume] correc janell for nucleated erythrocytes in Blood by Automated counOrdered By: Esau Busch on 11-11-2024 WBC corrected for nucl RBC Auto (Bld) [#/Vol] Leukocytes [#/volume] corrected for nucleated erythrocytes in Blood by Automated coun 3.8-11.6 [facility] Lipid Panelon 11-11-2024 Cholesterol [Mass/Vol] 200 mg/dL Normal 140-200 [facility] Comment on above: Result Comment: Chol less than 200 mg/dl low risk Chol 201-239 mg/dl borderline risk Chol 240 mg/dl and greater high risk Performed By: #### L IPID, FE and TIBC, PT, HEPATIC, SCAN CBC, KELLY ####[place] [address] [address]#### ALPHA PHEN, SANCHEZ CHOICE, HCV RX PCR, HBCAB, CERULOP, SMAB, HBSAG, HBSAB ####[facility] , Cholesterol in HDL [Mass/Vol] 66 mg/dL Normal 23-92 [facility] Comment on above: Result Comment: HDL CHOL ATP-III CLASSIFICATION Cardiovascular Risk HDL > or equal to 60 mg/dL LOW HDL < 40 mg/dL HIGH Performed By: #### L IPID, FE and TIBC, PT, HEPATIC, SCAN CBC, KELLY ####[place] [address] [place]#### ALPHA PHEN, SANCHEZ CHOICE, HCV RX PCR, HBCAB, CERULOP, SMAB, HBSAG, HBSAB ####[facility] , Cholesterol.total/Chol esterol in HDL [Mass ratio] 3.0 {ratio} Normal <5.0 [facility] Comment on above: Result Comment: PERF ORMED BY: [facility] [address] [place] [address] PATHOLOGIST HOSTESS HOST SHAW SAAVEDRA M.D. Performed By: #### L IPID, FE and TIBC, PT, HEPATIC, SCAN CBC, KELLY ####[place] [address] [address]#### ALPHA PHEN, SANCHEZ CHOICE, HCV RX PCR, HBCAB, CERULOP, SMAB, HBSAG, HBSAB ####[facility] , LDL Cholesterol,Calculated 93 mg/dL Normal 0-100 [facility] Comment on above: Result Comment: LDL ATP III CLASSIFICATION LDL less than 100 mg/dL Optimal LDL 100-129 mg/dL Near or above optimal LDL 130-159 mg/dL Borderline high LDL 160-189 mg/dL High LDL greater than 189 mg/dL Very high Performed By: #### L IPID, FE and TIBC, PT, HEPATIC, SCAN CBC, KELLY ####[place] [address] [place]#### ALPHA PHEN, SANCHEZ CHOICE, HCV RX PCR, HBCAB, CERULOP, SMAB, HBSAG, HBSAB ####[facility] , Triglyceride w/Reflex 206 mg/dL High 0-149 [facility] Comment on above: Result Comment: TRIG ATP III CLASSIFICATION TRIG less than 150 mg/dL Normal TRIG 150-199 mg/dL Borderline high TRIG 200-500 mg/dL High TRIG greater than 500 mg/dL Very high Standard traceable to the Center for Disease Conrtrol and Prevention (CDC) test method. Performed By: #### L IPID, FE and TIBC, PT, HEPATIC, SCAN CBC, KELLY ####[place] [address] [place] [address] [place]#### ALPHA PHEN, SANCHEZ CHOICE, HCV RX PCR, HBCAB, CERULOP, SMAB, HBSAG, HBSAB ####[facility] , VLDL CHOLESTEROL 41 mg/dL Normal [facility] Comment on above: Performed By: #### L IPID, FE and TIBC, PT, HEPATIC, SCAN CBC, KELLY ####[id number] [place] [id number] [facility]#### ALPHA PHEN, SANCHEZ CHOICE, HCV RX PCR, HBCAB, CERULOP, SMAB, HBSAG, HBSAB ####[facility] , Lymphocytes Auto (Bld) [#/Vo l]Ordered By: Esau Busch on 11-11-2024 Lymphocytes (Bld) [#/Vol] Lymphocytes [#/volume] in Blood by Automated count 1.00-4.8 [facility] Lymphocytes/100 WBC Auto (Bl d)Ordered By: Esau Busch on 11-11-2024 Lymphocytes/100 WBC (Bld) Lymphocytes/100 leukocytes in Blood by Automated count . [facility] MCH Auto (RBC) [Entitic mass ]Ordered By: Esau Busch on 11-11-2024 MCH (RBC) [Entitic mass] MCH [Entitic mass] by Automated count 24.7-34.3 [facility] MCHC Auto (RBC) [Mass/Vol]Or dered By: Esau Busch on 11-11-2024 MCHC (RBC) [Mass/Vol] MCHC [Mass/volume] by Automated count 32.0-35.0 [facility] MCV Auto (RBC) [Entitic vol] Ordered By: Esau Busch on 11-11-2024 MCV (RBC) [Entitic vol] MCV [Entitic volume] by Automated count 80-100 [facility] Monocytes Auto (Bld) [#/Vol] Ordered By: Esau Busch on 11-11-2024 Monocytes (Bld) [#/Vol] Automated blood monocyte count 0.0-0.8 [facility] Monocytes/100 WBC Auto (Bld) Ordered By: Esau Busch on 11-11-2024 Monocytes/100 WBC (Bld) Automated monocyte % . [facility] Neutrophils Auto (Bld) [#/Vo l]Ordered By: Esau Busch on 11-11-2024 Neutrophils (Bld) [#/Vol] Neutrophils [#/volume] in Blood by Automated count 1.8-7.7 [facility] Neutrophils/100 WBC Auto (Bl d)Ordered By: Esau Busch on 11-11-2024 Neutrophils/100 WBC (Bld) Automated neutrophil % . [facility] No Panel InformationOrdered By: Esau Busch on 11-11-2024 Hepatitis C Interpretation Comment . [facility] Comment on above: Not infected with HC V unless early or acute infection issuspected (which may be delayed in an immunocompromisedindividual), or other evidence exists to indicate HCVinfection. Nucleated erythrocytes [Pres ence] in Blood by Automated countOrdered By: Esau Busch on 11-11-2024 Nucleated RBC Auto Ql (Bld) Nucleated erythrocytes [Presence] in Blood by Automated count 0-0.5 [facility] Platelet adequacy [Presence] in Blood by Light microscopyOrdered By: Esau Busch on 11-11-2024 Platelets LM Ql (Bld) Platelet adequacy [Presence] in Blood by Light microscopy Normal [facility] Platelet mean volume Auto (B ld) [Entitic vol]Ordered By: Esau Busch on 11-11-2024 Platelet mean volume (Bld) [Entitic vol] Platelet mean volume [Entitic volume] in Blood by Automated count 6.3-10.7 [facility] Platelet morphology finding [Identifier] in BloodOrdered By: Esau Busch on 11-11-2024 Platelet morphology finding Nom (Bld) Platelet morphology finding [Identifier] in Blood Normal [facility] Platelets Auto (Bld) [#/Vol] Ordered By: Esau Busch on 11-11-2024 Platelets (Bld) [#/Vol] Platelets [#/volume] in Blood by Automated count 150-450 [facility] Polychromasia [Presence] in Blood by Light microscopyOrdered By: Esau Bucsh on 11-11-2024 Polychromasia LM Ql (Bld) Polychromasia [Presence] in Blood by Light microscopy [facility] Protein [Mass/volume] in Ser um or PlasmaOrdered By: Esau Busch on 11-11-2024 Protein [Mass/Vol] Protein [Mass/volume ] in Serum or Plasma 6.4-8.9 [facility] Prothrombin Time INRon 11-11 INR Coag (PPP) [Relative time] 1.0 {INR} Normal [facility] Comment on above: Result Comment: INR Therapeutic Range A) Pre- and Peroperative OAT started two weeks before surgery. NOT HIP SURGERY: 1.5 - 2.5 HIP SURGERY: 2 - 3 B) Primary and secondary prevention of venous THROMBOSIS: 2 - 3 C) Active venous thrombosis, pulmonary embolism and prevention of recurrent venous thrombosis: 2 - 3 D) Prevention of arterial thromboembolism including patients with mechanical heart valves: 3 - 4.5 PERFORMED BY: [place] [address] PATHOLOGIST HOSTESS HOST SHAW SAAVEDRA M.D. Performed By: #### L IPID, FE and TIBC, PT, HEPATIC, SCAN CBC, KELLY #### [place] [address] [place] #### ALPHA PHEN, SANCHEZ CHOICE, HCV RX PCR, HBCAB, CERULOP, SMAB, HBSAG, HBSAB #### [facility] , PT Coag (PPP) [Time] 10.9 s Normal 9.0-12.9 [facility] Comment on above: Result Comment: A he matocrit value greater than 55% may lead to inaccurate results in coagulation testing. Patients having hematocrit values >55% require a special collection tube for coagulation studies. Please contact the laboratory at [phone] for redraw instructions. Performed By: #### L IPID, FE and TIBC, PT, HEPATIC, SCAN CBC, KELLY #### [facility] [address] [place] [address] [place] #### ALPHA PHEN, SANCHEZ CHOICE, HCV RX PCR, HBCAB, CERULOP, SMAB, HBSAG, HBSAB #### [facility] , Prothrombin time (PT)Ordered By: Esau Busch on 11-11-2024 PT Coag (PPP) [Time] Prothrombin time (PT) 9.0- 12.9 [facility] Comment on above: A hematocrit value g reater than 55% may lead to inaccurate results in coagulation testing. Patients having hematocrit values >55% require a special collection tube for coagulation studies. Please contact the laboratory at [phone] for redraw instructions. RBC Auto (Bld) [#/Vol]Ordere d By: Esau Busch on 11-11-2024 RBC (Bld) [#/Vol] Erythrocytes [#/volu me] in Blood by Automated count High 3.60-5.00 [facility] Scan and CBCon 11-11-2024 Anisocytosis Ql (Bld) Slight Normal [facility] Comment on above: Performed By: #### L IPID, FE and TIBC, PT, HEPATIC, SCAN CBC, KELLY ####[address]#### ALPHA PHEN, SANCHEZ CHOICE, HCV RX PCR, HBCAB, CERULOP, SMAB, HBSAG, HBSAB ####[facility] , Basophils (Bld) [#/Vol] 0.1 10*3/uL Normal 0.0-0.2 [facility] Comment on above: Performed By: #### L IPID, FE and TIBC, PT, HEPATIC, SCAN CBC, KELLY ####[address]#### ALPHA PHEN, SANCHEZ CHOICE, HCV RX PCR, HBCAB, CERULOP, SMAB, HBSAG, HBSAB ####[facility] , Basophils/100 WBC (Bld) 1.1 % Normal . [facility] Comment on above: Performed By: #### L IPID, FE and TIBC, PT, HEPATIC, SCAN CBC, KELLY ####[place] [address] [place]#### ALPHA PHEN, SANCHEZ CHOICE, HCV RX PCR, HBCAB, CERULOP, SMAB, HBSAG, HBSAB ####[facility] , Eosinophils (Bld) [#/Vol] 0.1 10*3/uL Normal 0.0-0.45 [facility] Comment on above: Performed By: #### L IPID, FE and TIBC, PT, HEPATIC, SCAN CBC, KELLY ####[place] [address] [place]#### ALPHA PHEN, SANCHEZ CHOICE, HCV RX PCR, HBCAB, CERULOP, SMAB, HBSAG, HBSAB ####[facility] , Eosinophils/100 WBC (Bld) 1.4 % Normal . [facility] Comment on above: Performed By: #### L IPID, FE and TIBC, PT, HEPATIC, SCAN CBC, KELLY ####[address]#### ALPHA PHEN, SANCHEZ CHOICE, HCV RX PCR, HBCAB, CERULOP, SMAB, HBSAG, HBSAB ####[facility] , Erythrocyte distribution width (RBC) [Ratio] 18.5 % High 11.9-15.3 [facility] Comment on above: Performed By: #### L IPID, FE and TIBC, PT, HEPATIC, SCAN CBC, KELLY ####[address]#### ALPHA PHEN, SANCHEZ CHOICE, HCV RX PCR, HBCAB, CERULOP, SMAB, HBSAG, HBSAB ####[facility] , Hematocrit (Bld) [Volume fraction] 44.2 % Normal 34.0-46.4 [facility] Comment on above: Performed By: #### L IPID, FE and TIBC, PT, HEPATIC, SCAN CBC, KELLY ####[place] [address] [place]#### ALPHA PHEN, SANCHEZ CHOICE, HCV RX PCR, HBCAB, CERULOP, SMAB, HBSAG, HBSAB ####[facility] , Hemoglobin (Bld) [Mass/Vol] 14.8 g/dL Normal 11.8-15.4 [facility] Comment on above: Performed By: #### L IPID, FE and TIBC, PT, HEPATIC, SCAN CBC, KELLY ####[address] [place] [address] [place]#### ALPHA PHEN, SANCHEZ CHOICE, HCV RX PCR, HBCAB, CERULOP, SMAB, HBSAG, HBSAB ####[facility] , Lymphocytes (Bld) [#/Vol] 1.6 10*3/uL Normal 1.00-4.8 [facility] Comment on above: Performed By: #### L IPID, FE and TIBC, PT, HEPATIC, SCAN CBC, KELLY ####[address]#### ALPHA PHEN, SANCHEZ CHOICE, HCV RX PCR, HBCAB, CERULOP, SMAB, HBSAG, HBSAB ####[facility] , Lymphocytes/100 WBC (Bld) 32.9 % Normal . [facility] Comment on above: Performed By: #### L IPID, FE and TIBC, PT, HEPATIC, SCAN CBC, KELLY ####[address]#### ALPHA PHEN, SANCHEZ CHOICE, HCV RX PCR, HBCAB, CERULOP, SMAB, HBSAG, HBSAB ####[facility] , MCH (RBC) [Entitic mass] 29.2 pg Normal 24.7-34.3 [facility] Comment on above: Performed By: #### L IPID, FE and TIBC, PT, HEPATIC, SCAN CBC, KELLY ####[address]#### ALPHA PHEN, SANCHEZ CHOICE, HCV RX PCR, HBCAB, CERULOP, SMAB, HBSAG, HBSAB ####[facility] , MCV (RBC) [Entitic vol] 87.1 fL Normal 80-100 [facility] Comment on above: Performed By: #### L IPID, FE and TIBC, PT, HEPATIC, SCAN CBC, KELLY ####[address]#### ALPHA PHEN, SANCHEZ CHOICE, HCV RX PCR, HBCAB, CERULOP, SMAB, HBSAG, HBSAB ####[facility] , Mean Corpuscular HGB Conc 33.5 g/dL Normal 32.0-35.0 [facility] Comment on above: Performed By: #### L IPID, FE and TIBC, PT, HEPATIC, SCAN CBC, KELLY ####[address]#### ALPHA PHEN, SANCHEZ CHOICE, HCV RX PCR, HBCAB, CERULOP, SMAB, HBSAG, HBSAB ####[facility] , Monocytes (Bld) [#/Vol] 0.3 10*3/uL Normal 0.0-0.8 [facility] Comment on above: Performed By: #### L IPID, FE and TIBC, PT, HEPATIC, SCAN CBC, KELLY ####[address]#### ALPHA PHEN, SANCHEZ CHOICE, HCV RX PCR, HBCAB, CERULOP, SMAB, HBSAG, HBSAB ####[facility] , Monocytes/100 WBC (Bld) 6.7 % Normal . [facility] Comment on above: Performed By: #### L IPID, FE and TIBC, PT, HEPATIC, SCAN CBC, KELLY ####[address]#### ALPHA PHEN, SANCHEZ CHOICE, HCV RX PCR, HBCAB, CERULOP, SMAB, HBSAG, HBSAB ####[facility] , Neutrophils (Bld) [#/Vol] 2.8 10*3/uL Normal 1.8-7.7 [facility] Comment on above: Performed By: #### L IPID, FE and TIBC, PT, HEPATIC, SCAN CBC, KELLY ####[address]#### ALPHA PHEN, SANCHEZ CHOICE, HCV RX PCR, HBCAB, CERULOP, SMAB, HBSAG, HBSAB ####[facility] , Neutrophils/100 WBC (Bld) 57.9 % Normal . [facility] Comment on above: Performed By: #### L IPID, FE and TIBC, PT, HEPATIC, SCAN CBC, KELLY ####[address]#### ALPHA PHEN, SANCHEZ CHOICE, HCV RX PCR, HBCAB, CERULOP, SMAB, HBSAG, HBSAB ####[facility] , NRBC% 0.2 /100{WBC} Normal 0-0.5 The [facility] Comment on above: Performed By: #### L IPID, FE and TIBC, PT, HEPATIC, SCAN CBC, KELLY ####[address]#### ALPHA PHEN, SANCHEZ CHOICE, HCV RX PCR, HBCAB, CERULOP, SMAB, HBSAG, HBSAB ####[facility] , Platelet Estimate Normal Normal Normal The [facility] Comment on above: Performed By: #### L IPID, FE and TIBC, PT, HEPATIC, SCAN CBC, KELLY ####[address]#### ALPHA PHEN, SANCHEZ CHOICE, HCV RX PCR, HBCAB, CERULOP, SMAB, HBSAG, HBSAB ####[facility] , Platelet mean volume (Bld) [Entitic vol] 8.0 fL Normal 6.3-10.7 The [facility] Comment on above: Performed By: #### L IPID, FE and TIBC, PT, HEPATIC, SCAN CBC, KELLY ####[address]#### ALPHA PHEN, SANCHEZ CHOICE, HCV RX PCR, HBCAB, CERULOP, SMAB, HBSAG, HBSAB ####[facility] , Platelet Morphology Normal Normal Normal [facility] Comment on above: Result Comment: PERF ORMED BY: [facility] [address] [place] [address] PATHOLOGIST HOSTESS HOST SHAW SAAVEDRA M.D. Performed By: #### L IPID, FE and TIBC, PT, HEPATIC, SCAN CBC, KELLY ####[address]#### ALPHA PHEN, SANCHEZ CHOICE, HCV RX PCR, HBCAB, CERULOP, SMAB, HBSAG, HBSAB ####[facility] , Platelets (Bld) [#/Vol] 276 10*3/uL Normal 150-450 [facility] Comment on above: Performed By: #### L IPID, FE and TIBC, PT, HEPATIC, SCAN CBC, KELLY ####[address]#### ALPHA PHEN, SANCHEZ CHOICE, HCV RX PCR, HBCAB, CERULOP, SMAB, HBSAG, HBSAB ####[facility] , Polychromasia Slight Normal [facility] Comment on above: Performed By: #### L IPID, FE and TIBC, PT, HEPATIC, SCAN CBC, KELLY ####[address]#### ALPHA PHEN, SANCHEZ CHOICE, HCV RX PCR, HBCAB, CERULOP, SMAB, HBSAG, HBSAB ####[facility] , RBC (Bld) [#/Vol] 5.08 10*6/uL High 3.60-5.00 [facility] Comment on above: Performed By: #### L IPID, FE and TIBC, PT, HEPATIC, SCAN CBC, KELLY ####[place] [address] [place]#### ALPHA PHEN, SANCHEZ CHOICE, HCV RX PCR, HBCAB, CERULOP, SMAB, HBSAG, HBSAB ####[facility] , WBC (Bld) [#/Vol] 4.9 10*3/uL Normal 3.8-11.6 The [facility] Comment on above: Performed By: #### L IPID, FE and TIBC, PT, HEPATIC, SCAN CBC, KELLY ####[facility] [id number] [place] [address] [place]#### ALPHA PHEN, SANCHEZ CHOICE, HCV RX PCR, HBCAB, CERULOP, SMAB, HBSAG, HBSAB ####[facility] , Serum hepatitis B virus surf jose luis antibody detectionOrdered By: Esau Busch on 11-11-2024 HBV surface Ab Ql (S) Hepatitis B virus surface Ab [Presence] in Serum . [facility] Comment on above: Non Reactive: Not im mune to HBV infection. Equivocal: Unable to determine if anti-HBs is present at levels consistent with immunity. Reactive: Anti-HBs concentration detected at greater than 10 mIU/mL. Individual is considered to be immune to infection with HBV. Serum or plasma albumin/glob ulin mass ratioOrdered By: Esau Busch on 11-11-2024 Albumin/Globulin [Mass ratio] Serum or plasma albumin/globulin mass ratio [facility] Serum or plasma alpha 1 anti trypsin measurement (mass/volume)Ordered By: Esau Busch on 11-11-2024 Alpha 1 antitrypsin [Mass/Vol] Serum [id number] measurement 101-187 [facility] Serum or plasma alpha 1 anti trypsin phenotyping identification by immunofixationOrdered By: Esau Busch on 11-11-2024 Alpha 1 antitrypsin phenotyping Immunofixation Nom Serum or plasma alpha 1 antitrypsin phenotyping identification by immunofixation . [facility] Comment on above: MM Phenotype is co nsidered to be normal , producingnormal serum levels of wmsti-4-adgsflva inhibitor andnot associated with clinical disease. Associated R6Gprfap serum levels in other phenotypes and theirincidence in the general population are shown in thetable below.Phenotype Population % function A-1-AT Conc.* Incidence % compared to MM (Typical Range) MM 86.5% 100% (96 - 189) MS 8.0% 86% (83 - 161) MZ 3.9% 61% (60 - 111) FM 0.4% 100% (93 - 191) SZ 0.3% 41% (42 - 75) SS 0.1% 64% (62 - 119) ZZ 0.05% 19% (16 - 38) FS 0.05% 70% (70 - 128) FZ Unknown 46% (44 - 88) FF Unknown Unknown*A-1-AT concentration in the homozygous MM phenotype is taken as the reference normal. Percent deficiency in each phenotype is reported relative to this reference. Ranges used to confirm phenotype.Performed at: [facility] [employer] [id number] Director: Luis Mukherjee PhD, Phone: [phone] at: [facility] [employer] [id number] Director: Nereida Talbot MD, Phone: [phone] Serum or plasma ceruloplasmi n measurement (mass/volume)Ordered By: Esau Busch on 11-11-2024 Ceruloplasmin [Mass/Vol] Serum or plasma ceruloplasmin measurement (mass/volume) 19.0-39.0 [facility] Comment on above: Performed at: [facility] [address] [id number] Director: Luis Mukherjee PhD, Phone: [phone] Serum or plasma free cefurox reyna measurement (mass/volume)Ordered By: Esau Busch on 11-11-2024 Cefuroxime free [Mass/Vol] Serum or plasma free cefuroxime measurement (mass/volume) Negative [facility] Comment on above: Performed at: [facility] [address] [id number] Director: Luis Mukherjee PhD, Phone: [phone] Serum or plasma hepatitis B virus surface antigen detection by immunoassayOrdered By: Esau Busch on 11-11-2024 HBV surface Ag IA Ql Hepatitis B virus s urface Ag [Presence] in Serum or Plasma by Immunoassay Negative [facility] Serum or plasma iron binding capacity measurement (mass/volume)Ordered By: Esau Busch on 11-11-2024 Iron binding capacity [Mass/Vol] Iron binding capacity [Mass/volume] in Serum or Plasma 255-450 [facility] Serum or plasma iron saturat ion measurement (mass fraction)Ordered By: Esau Busch on 11-11-2024 Iron saturation [Mass fraction] Iron saturation [Mass Fraction] in Serum or Plasma 20-50 [facility] Serum or plasma non-glucuron idated bilirubin measurement (mass/volume)Ordered By: Esau Busch on 11-11-2024 Bilirubin.indirect [Mass/Vol] Serum or plasma non-glucuronidated bilirubin measurement (mass/volume) [facility] Serum or plasma total choles terol/high density lipoprotein (HDL) cholesterol mass ratOrdered By: Esau Busch on 11-11-2024 Cholesterol.total/Chol esterol in HDL [Mass ratio] Serum or plasma total cholesterol/high density lipoprotein (HDL) cholesterol mass rat <5.0 [facility] Smooth Muscle Antibodyon Smooth Muscle Antibody 26 High 0-19 [facility] Comment on above: Result Comment: Nega tive 0 - 19 Weak positive 20 - 30 Moderate to strong positive >30 Actin Antibodies are found in 52-85% of patients with autoimmune hepatitis or chronic active hepatitis and in 22% of patients with primary biliary cirrhosis. Performed at: [facility] [place] [id number] [employer] Assistant: Luis Mukherjee PhD, Phone: [phone] PERFORMED BY: [facility] [address] [place] [address] PATHOLOGIST HOSTESS HOST SHAW SAAVEDRA M.D. Performed By: #### L IPID, FE and TIBC, PT, HEPATIC, SCAN CBC, KELLY ####[facility] [id number]#### ALPHA PHEN, SANCHEZ CHOICE, HCV RX PCR, HBCAB, CERULOP, SMAB, HBSAG, HBSAB ####[facility] , Transferrin [Mass/volume] in Serum or PlasmaOrdered By: Esau Busch on 11-11-2024 Transferrin [Mass/Vol] Transferrin [Mass /volume] in Serum or Plasma 203-362 [facility] Triglyceride [Mass/volume] i n Serum or PlasmaOrdered By: Esau Busch on 11-11-2024 Triglyceride [Mass/Vol] Triglyceride [Mass/volume] in Serum or Plasma High 0-149 [facility] Comment on above: TRIG ATP III CLASSIF ICATIONTRIG less than 150 mg/dL NormalTRIG 150-199 mg/dL Borderline highTRIG 200-500 mg/dL High TRIG greater than 500 mg/dL Very highStandard traceable to the Center for Disease Conrtrol and Prevention (CDC) test method. WBC Auto (Bld) [#/Vol]Ordere d By: Esau Busch on 11-11-2024 WBC (Bld) [#/Vol] Leukocytes [#/volume ] in Blood by Automated count 3.8-11.6 [facility] Office Visiton 10-24-2024 Follow-up visit [id number] Nicol Smith 1960 F Date Provider Department Center 10/24/2024 3848-ANITA TAFOYA Family History Problem Relation Age of Onset Diabetes Father Heart failure Father Diabetes Paternal Grandmother Diabetes Paternal Grandfather Family Status - Relation Status Age at Father Paternal Grandmother Paternal Grandfather Level of Service:13984 [place] OFFICE/OUTPATIENT ESTABLISHED MOD MDM 30 MIN Normal [facility] Laboratory - Chemistry and C hemistry - challengeon 09-16-2024 Bilirubin Ql (U) Negative NEGATIVE [facility] Glucose (U) [Mass/Vol] Negative NEGATIVE [facility] Ketones Ql (U) Negative NEGATIVE [facility] pH (U) 6.0 [pH] 5.0-9.0 [facility] Specific gravity (U) [Rel density] 1.025 1.005-1.02 5 [facility] Urobilinogen Qn (U) 0.2 {Larissa'U}/dL 0.2-1.0 [facility] Laboratory - Microbiology an d Antimicrobial susceptibilityon 09-16-2024 S. pyogenes Ag Ql (Unsp spec) Negative [facility] SARS-CoV-2 (COVID-19) RNA ALEKSANDR+probe Ql (Unsp spec) Negative NEGATIVE [facility] Comment on above: This test has not be en FDA cleared or approved, but has beenauthorized by the FDA under an Emergency Use Authorization(EUA) for use by authorized laboratories certified underCLIA that meet the requirements to perform moderate [...] inform ationon 09-16-2024 Appearance (U) CLEAR CLEAR [facility] Color (U) LT. YELLOW YELLOW [facility] Laboratory - Urinalysison Leukocyte esterase Test strip Ql (U) TRACE Abnormal NEGATIVE [facility] Mucus Ql (Urine sed) NONE SEEN NONE SEEN [facility] Nitrite Ql (U) Negative NEGATIVE [facility] Protein Ql (U) Negative NEG/TRACE [facility] No Panel Informationon 09-16 Bedside Influenza Type A Antigen Negative [facility] Comment on above: Negative for Flu A p rotein antigen. Infection due to Flu Acannot be ruled out. Flu A antigen in the sample may bebelow the detection limit of the test. Bedside Influenza Type B Antigen Negative [facility] Comment on above: Negative for Flu B p rotein antigen. Infection due to Flu Bcannot be ruled out. Flu B antigen in the sample may bebelow the detection limit of the test. Urine Bacteria NONE SEEN #/HPF NONE SEEN [facility] Urine Culture Reflexed NO [facility] Urine Microscopic Review YES [facility] Urine Occult Blood Negative NEGATIVE [facility] Urine Other Casts NONE SEEN #/LPF NONE SEEN [facility] Urine Other Crystals None Seen #/HPF None Seen [facility] Urine RBC 0-2 #/HPF 0-2 [facility] Urine Squamous Epithelial Cells RARE #/LPF NONE/RARE [facility] Urine WBC 0-2 #/HPF Abnormal NONE SEEN [facility] Basophils Auto (Bld) [#/Vol] on 09-11-2024 Basophils (Bld) [#/Vol] Automated basophil count 0.0-0.1 [facility] Basophils/100 WBC Auto (Bld) on 09-11-2024 Basophils/100 WBC (Bld) Automated basophil % 0.2-2.0 [facility] Eosinophils/100 WBC Auto (Bl d)on 09-11-2024 Eosinophils/100 WBC (Bld) Automated eosinophil % 0.9-7.0 [facility] Erythrocyte distribution wid th Auto (RBC) [Ratio]on 09-11-2024 Erythrocyte distribution width (RBC) [Ratio] Erythrocyte distribution width [Ratio] by Automated count High 11.0-15.0 [facility] Hematocrit Auto (Bld) [Volum e fraction]on 09-11-2024 Hematocrit (Bld) [Volume fraction] Hematocrit [Volume Fraction] of Blood by Automated count 36.0-48.0 [facility] Hemoglobin [Mass/volume] in Bloodon 09-11-2024 Hemoglobin (Bld) [Mass/Vol] Hemoglobin [Mass/volume] in Blood 12.0-16.0 [facility] Iron binding capacity [Mass/ volume] in Serum or Plasmaon 09-11-2024 Iron binding capacity [Mass/Vol] Iron binding capacity [Mass/volume] in Serum or Plasma 250.0-450. 0 [facility] Iron saturation [Mass Fracti on] in Serum or Plasmaon 09-11-2024 Iron saturation [Mass fraction] Iron saturation [Mass Fraction] in Serum or Plasma [facility] Laboratory - Chemistry and C hemistry - challengeon 09-11-2024 Ferritin [Mass/Vol] 124.0 ng/mL 8.0-252.0 [facility] Iron [Mass/Vol] 61.0 ug/dL 50.0-170.0 [facility] Laboratory - Hematology and Cell countson 09-11-2024 Immature granulocytes/100 WBC (Bld) 0.4 % 0.0-0.5 [facility] Leukocytes [#/volume] correc janell for nucleated erythrocytes in Blood by Automated counon 09-11-2024 WBC corrected for nucl RBC Auto (Bld) [#/Vol] Leukocytes [#/volume] corrected for nucleated erythrocytes in Blood by Automated coun 4.0-11.0 [facility] Lymphocytes Auto (Bld) [#/Vo l]on 09-11-2024 Lymphocytes (Bld) [#/Vol] Lymphocytes [#/volume] in Blood by Automated count 1.2-3.8 [facility] Lymphocytes/100 WBC Auto (Bl d)on 09-11-2024 Lymphocytes/100 WBC (Bld) Lymphocytes/100 leukocytes in Blood by Automated count 20.5-60.0 [facility] MCH Auto (RBC) [Entitic mass ]on 09-11-2024 MCH (RBC) [Entitic mass] MCH [Entitic mass] by Automated count Low 26.7-34.0 [facility] MCHC Auto (RBC) [Mass/Vol]on 09-11-2024 MCHC (RBC) [Mass/Vol] MCHC [Mass/volume] by Automated count 29.9-35.2 [facility] MCV Auto (RBC) [Entitic vol] on 09-11-2024 MCV (RBC) [Entitic vol] MCV [Entitic volume] by Automated count 81.0-99.0 [facility] Monocytes Auto (Bld) [#/Vol] on 09-11-2024 Monocytes (Bld) [#/Vol] Automated blood monocyte count 0.3-0.8 [facility] Monocytes/100 WBC Auto (Bld) on 09-11-2024 Monocytes/100 WBC (Bld) Automated monocyte % 1.7-12.0 [facility] Neutrophils Auto (Bld) [#/Vo l]on 09-11-2024 Neutrophils (Bld) [#/Vol] Neutrophils [#/volume] in Blood by Automated count 1.4-6.5 [facility] Neutrophils/100 WBC Auto (Bl d)on 09-11-2024 Neutrophils/100 WBC (Bld) Automated neutrophil % 43.0-75.0 [facility] No Panel Informationon 09-11 Eosinophils # (Auto) 0.1 10 3/uL 0.0-0.7 [facility] Immature Granulocyte # (Auto) 0.02 10 3/uL 0.00-0.03 [facility] Platelet mean volume Auto (B ld) [Entitic vol]on 09-11-2024 Platelet mean volume (Bld) [Entitic vol] Platelet mean volume [Entitic volume] in Blood by Automated count Low 9.5-13.5 [facility] Platelets Auto (Bld) [#/Vol] on 09-11-2024 Platelets (Bld) [#/Vol] Platelets [#/volume] in Blood by Automated count 150-450 [facility] RBC Auto (Bld) [#/Vol]on RBC (Bld) [#/Vol] Erythrocytes [#/volu me] in Blood by Automated count High 4.20-5.40 [facility] XR hip RT min 2V(w/wo pelvis )*on 08-27-2024 XR hip RT min 2V(w/wo pelvis)* [facility] [address] [place] [address] XRay Report Signed Patient: Nicol Smith MR#: [id number] 9 : 1960 Acct:[id number] Age/Sex: 64 / F ADM Date: 08/27/24 Loc: [facility] [place] Room: Type: [facility] Attending Dr: David Mcfarland II, [...] Magdy Crooks M.D.08/27/2024 4:17 PM Dictation Location: [place] [address] Transcribed By: SILVIA 08/27/241616 Dictated By: Magdy Crooks II, MD 08/27/241616 Signed By: 08/27/241616 Normal [facility] Office Visiton 07-25-2024 Follow-up visit [id number] Nicol Smith Ilda 1960 F Date Provider Department Center 07/25/2024 3848-ANITA TAFOYA CARD [facility] Family History Problem Relation Age of Onset Diabetes Father Heart failure Father Diabetes Paternal Grandmother Diabetes Paternal Grandfather Family Status - Relation Status Age at Father Paternal Grandmother Paternal Grandfather Level of Service:[address] [place] OFFICE/OUTPATIENT ESTABLISHED MOD MDM 30 MIN Normal [facility] Albumin [Mass/volume] in Ser um or Plasmaon 07-15-2024 Albumin [Mass/Vol] 3.7 g/dL 2.9-4.4 [facility] Albumin [Mass/Vol] Albumin [Mass/volume ] in Serum or Plasma 2.9-4.4 [facility] Basophils Auto (Bld) [#/Vol] on 07-15-2024 Basophils (Bld) [#/Vol] 0.1 10 3/uL 0.0-0.1 [facility] Basophils (Bld) [#/Vol] Automated basophil count 0.0-0.1 [facility] Basophils/100 WBC Auto (Bld) on 07-15-2024 Basophils/100 WBC (Bld) 1.5 % 0.2-2.0 [facility] Basophils/100 WBC (Bld) Automated basophil % 0.2-2.0 [facility] Eosinophils/100 WBC Auto (Bl d)on 07-15-2024 Eosinophils/100 WBC (Bld) 2.0 % 0.9-7.0 [facility] Eosinophils/100 WBC (Bld) Automated eosinophil % 0.9-7.0 [facility] Erythrocyte distribution wid th Auto (RBC) [Ratio]on 07-15-2024 Erythrocyte distribution width (RBC) [Ratio] 22.6 % High 11.0-15.0 [facility] Erythrocyte distribution width (RBC) [Ratio] Erythrocyte distribution width [Ratio] by Automated count High 11.0-15.0 [facility] Estimated glomerular filtrat ion rate (GFR) non- Americanon 07-15-2024 GFR/1.73 sq M.predicted among non-blacks MDRD (S/P/Bld) [Vol rate/Area] 59 mL/min/{1.73_m2} Low >=60 mL/min/1.7 3m 2 [facility] GFR/1.73 sq M.predicted among non-blacks MDRD (S/P/Bld) [Vol rate/Area] Estimated glomerular filtration rate (GFR) non- Low >=60 mL/min/1.7 3m 2 [facility] Globulin Calc (S) [Mass/Vol] on 07-15-2024 Globulin (S) [Mass/Vol] 3.9 g/dL [facility] Globulin (S) [Mass/Vol] Serum globulin measurement by calculation (mass/volume) [facility] Hematocrit Auto (Bld) [Volum e fraction]on 07-15-2024 Hematocrit (Bld) [Volume fraction] 38.2 % 36.0-48.0 [facility] Hematocrit (Bld) [Volume fraction] Hematocrit [Volume Fraction] of Blood by Automated count 36.0-48.0 [facility] Hemoglobin [Mass/volume] in Bloodon 07-15-2024 Hemoglobin (Bld) [Mass/Vol] 11.2 g/dL Low 12.0-16.0 [facility] Hemoglobin (Bld) [Mass/Vol] Hemoglobin [Mass/volume] in Blood Low 12.0-16.0 [facility] IgA [Mass/volume] in Serum o r Plasmaon 07-15-2024 IgA [Mass/Vol] 117 mg/dL 87-352 [facility] IgA [Mass/Vol] IgA [Mass/volume] in Serum or Plasma 87-352 [facility] IgG [Mass/volume] in Serum o r Plasmaon 07-15-2024 IgG [Mass/Vol] 938 mg/dL 586-1602 [facility] IgG [Mass/Vol] IgG [Mass/volume] in Serum or Plasma 586-1602 [facility] IgM [Mass/volume] in Serum o r Plasmaon 07-15-2024 IgM [Mass/Vol] 43 mg/dL [facility] IgM [Mass/Vol] IgM [Mass/volume] in Serum or Plasma [facility] Iron binding capacity [Mass/ volume] in Serum or Plasmaon 07-15-2024 Iron binding capacity [Mass/Vol] 457.0 ug/dL High 250.0-450. 0 [facility] Iron binding capacity [Mass/Vol] Iron binding capacity [Mass/volume] in Serum or Plasma High 250.0-450. 0 [facility] Iron saturation [Mass Fracti on] in Serum or Plasmaon 07-15-2024 Iron saturation [Mass fraction] 3.7 % [facility] Iron saturation [Mass fraction] Iron saturation [Mass Fraction] in Serum or Plasma [facility] Laboratory - Chemistry and C hemistry - challengeon 07-15-2024 Albumin [Mass/Vol] 3.6 g/dL 3.4-5.0 [facility] ALP [Catalytic activity/Vol] 129 U/L High 46-116 [facility] ALT [Catalytic activity/Vol] 28 U/L 14-59 [facility] AST [Catalytic activity/Vol] 16 U/L 15-37 [facility] Bilirubin [Mass/Vol] 0.3 mg/dL 0.2-1.0 [facility] Calcium [Mass/Vol] 9.4 mg/dL 8.5-10.1 [facility] Chloride [Moles/Vol] 107 mmol/L 98-107 [facility] CO2 [Moles/Vol] 23.5 mmol/L 21.0-32.0 [facility] Cobalamin (Vitamin B12) [Mass/Vol] 619 pg/mL 232-1245 [facility] Comment on above: Performed at: - [address] [id number] Director: Luis Mukherjee PhD, Phone: [phone] Creatinine [Mass/Vol] 0.96 mg/dL 0.55-1.02 [facility] Ferritin [Mass/Vol] 22.0 ng/mL 8.0-252.0 [facility] GFR/1.73 sq M.predicted MDRD (S/P/Bld) [Vol rate/Area] mL/min/{1.73_m2} >=60 mL/min/1.7 3m 2 [facility] Glucose [Mass/Vol] 170 mg/dL High 74-106 [facility] Iron [Mass/Vol] 17.0 ug/dL Low 50.0-170.0 [facility] LDH [Catalytic activity/Vol] 205 U/L 81-234 [facility] Potassium [Moles/Vol] 4.0 mmol/L 3.5-5.1 [facility] Protein [Mass/Vol] 0.2 g/dL Abnormal Not Observed [facility] Protein [Mass/Vol] 7.5 g/dL 6.4-8.2 [facility] Sodium [Moles/Vol] 143 mmol/L 136-145 [facility] Urea nitrogen [Mass/Vol] 18.0 mg/dL 7.0-18.0 [facility] Urea nitrogen/Creatinine [Mass ratio] 18.8 mg/mg [facility] Laboratory - Hematology and Cell countson 07-15-2024 ESR (Bld) [Velocity] 62 mm/h High <=30 [facility] Immature granulocytes/100 WBC (Bld) 0.2 % 0.0-0.5 [facility] Leukocytes [#/volume] correc janell for nucleated erythrocytes in Blood by Automated counon 07-15-2024 WBC corrected for nucl RBC Auto (Bld) [#/Vol] 5.5 10 3/uL 4.0-11.0 [facility] WBC corrected for nucl RBC Auto (Bld) [#/Vol] Leukocytes [#/volume] corrected for nucleated erythrocytes in Blood by Automated coun .0-11.0 [facility] Lymphocytes Auto (Bld) [#/Vo l]on 07-15-2024 Lymphocytes (Bld) [#/Vol] 1.6 10 3/uL 1.2-3.8 [facility] Lymphocytes (Bld) [#/Vol] Lymphocytes [#/volume] in Blood by Automated count 1.2-3.8 [facility] [facility] Lymph[facility]/100 WBC Auto (Bl d)on 07-15-2024 Lymphocytes/100 WBC (Bld) 28.8 % 20.5-60.0 [facility] Lymphocytes/100 WBC (Bld) Lymphocytes/100 leukocytes in Blood by Automated count 20.5-60.0 [facility] MCH Auto (RBC) [Entitic mass ]on 07-15-2024 MCH (RBC) [Entitic mass] 22.7 pg Low 26.7-34.0 [facility] MCH (RBC) [Entitic mass] MCH [Entitic mass] by Automated count Low 26.7-34.0 [facility] MCHC Auto (RBC) [Mass/Vol]on 07-15-2024 MCHC (RBC) [Mass/Vol] 29.3 g/dL Low 29.9-35.2 [facility] MCHC (RBC) [Mass/Vol] MCHC [Mass/volume] by Automated count Low 29.9-35.2 [facility] MCV Auto (RBC) [Entitic vol] on 07-15-2024 MCV (RBC) [Entitic vol] 77.5 fL Low 81.0-99.0 [facility] MCV (RBC) [Entitic vol] MCV [Entitic volume] by Automated count Low 81.0-99.0 [facility] Monocytes Auto (Bld) [#/Vol] on 07-15-2024 Monocytes (Bld) [#/Vol] 0.3 10 3/uL 0.3-0.8 [facility] Monocytes (Bld) [#/Vol] Automated blood monocyte count 0.3-0.8 [facility] Monocytes/100 WBC Auto (Bld) on 07-15-2024 Monocytes/100 WBC (Bld) 5.9 % 1.7-12.0 [facility] Monocytes/100 WBC (Bld) Automated monocyte % 1.7-12.0 [facility] Neutrophils Auto (Bld) [#/Vo l]on 07-15-2024 Neutrophils (Bld) [#/Vol] 3.4 10 3/uL 1.4-6.5 [facility] Neutrophils (Bld) [#/Vol] Neutrophils [#/volume] in Blood by Automated count 1.4-6.5 [facility] Neutrophils/100 WBC Auto (Bl d)on 07-15-2024 Neutrophils/100 WBC (Bld) 61.6 % 43.0-75.0 [facility] Neutrophils/100 WBC (Bld) Automated neutrophil % 43.0-75.0 [facility] No Panel Informationon 07-15 C-Reactive Protein, Quantitative <0.50 mg/dL <=0.50 [facility] Eosinophils # (Auto) 0.1 10 3/uL 0.0-0.7 [facility] Folate 18.00 ng/mL 8.60-58.90 [facility] Immature Granulocyte # (Auto) 0.01 10 3/uL 0.00-0.03 [facility] Protein Electrophoresis Note Comment . [facility] Comment on above: Protein electrophore sis scan will follow via computer,mail, or awake overnight monitor delivery.Performed at: [facility] [id number] Director: Luis Mukherjee PhD, Phone: [phone] Platelet mean volume Auto (B ld) [Entitic vol]on 07-15-2024 Platelet mean volume (Bld) [Entitic vol] 9.5 fL 9.5-13.5 [facility] Platelet mean volume (Bld) [Entitic vol] Platelet mean volume [Entitic volume] in Blood by Automated count 9.5-13.5 [facility] Platelets Auto (Bld) [#/Vol] on 07-15-2024 Platelets (Bld) [#/Vol] 412 10 3/uL 150-450 [facility] Platelets (Bld) [#/Vol] Platelets [#/volume] in Blood by Automated count 150-450 [facility] Protein [Mass/volume] in Ser um or Plasmaon 07-15-2024 Protein [Mass/Vol] 7.0 g/dL 6.0-8.5 [facility] Protein [Mass/Vol] Protein [Mass/volume ] in Serum or Plasma 6.0-8.5 [facility] RBC Auto (Bld) [#/Vol]on RBC (Bld) [#/Vol] 4.93 10 6/uL 4.20-5.40 [facility] Comment on above: ANISOCYTOSIS 1+ RBC (Bld) [#/Vol] Erythrocytes [#/volu me] in Blood by Automated count [facility] Comment on above: ANISOCYTOSIS 1+ Reticulocytes/100 RBC Auto ( Bld)on 07-15-2024 Reticulocytes/100 RBC (Bld) 2.69 % 0.60-3.10 [facility] Reticulocytes/100 RBC (Bld) Reticulocyte % auto 0.60-3.10 [facility] Serum globulin measurement ( mass/volume)on 07-15-2024 Globulin (S) [Mass/Vol] 3.3 g/dL 2.2-3.9 [facility] Globulin (S) [Mass/Vol] Serum globulin measurement (mass/volume) 2.2-3.9 [facility] Serum or plasma albumin/glob ulin mass ratioon 07-15-2024 Albumin/Globulin [Mass ratio] 0.9 {ratio} [facility] Albumin/Globulin [Mass ratio] 1.2 {ratio} 0.7-1.7 [facility] Albumin/Globulin [Mass ratio] Serum or plasma albumin/globulin mass ratio 0.7-1.7 [facility] Serum or plasma alpha 1 glob ulin measurement by electrophoresis (mass/volume)on 07-15-2024 Alpha 1 globulin Elph [Mass/Vol] 0.3 g/dL 0.0-0.4 [facility] Alpha 1 globulin Elph [Mass/Vol] Serum or plasma alpha 1 globulin measurement by electrophoresis (mass/volume) 0.0-0.4 [facility] Serum or plasma alpha 2 glob ulin measurement by electrophoresis (mass/volume)on 07-15-2024 Alpha 2 globulin Elph [Mass/Vol] 0.9 g/dL 0.4-1.0 [facility] Alpha 2 globulin Elph [Mass/Vol] Serum or plasma alpha 2 globulin measurement by electrophoresis (mass/volume) 0.4-1.0 [facility] Serum or plasma anion gap de terminationon 07-15-2024 Anion gap [Moles/Vol] 16.5 mmol/L [facility] Anion gap [Moles/Vol] Serum or plasma an ion gap determination [facility] Serum or plasma beta globuli n measurement by electrophoresis (mass/volume)on 07-15-2024 Beta globulin Elph [Mass/Vol] 1.1 g/dL 0.7-1.3 [facility] Beta globulin Elph [Mass/Vol] Serum or plasma beta globulin measurement by electrophoresis (mass/volume) 0.7-1.3 [facility] Serum or plasma gamma globul in measurement by electrophoresis (mass/volume)on 07-15-2024 Gamma globulin Elph [Mass/Vol] 0.9 g/dL 0.4-1.8 [facility] Gamma globulin Elph [Mass/Vol] Serum or plasma gamma globulin measurement by electrophoresis (mass/volume) 0.4-1.8 [facility] Serum or plasma immunoelectr ophoresis interpretationon 07-15-2024 Interpretation IEP [Interp] Comment Abnormal . [facility] Comment on above: Immunofixation shows IgG monoclonal protein with lambdalight chain specificity. Interpretation IEP [Interp] Serum or plasma immunoelectrophoresis interpretation Abnormal . [facility] Comment on above: Immunofixation shows IgG monoclonal protein with lambdalight chain specificity. Activated partial thrombopla stin time (aPTT) in platelet poor plasma by coagulation aon 06-17-2024 aPTT Coag (PPP) [Time] 26.5 s 22.3-36.2 [facility] Basophils Auto (Bld) [#/Vol] on 06-17-2024 Basophils (Bld) [#/Vol] 0.1 10 3/uL 0.0-0.1 [facility] Basophils/100 WBC Auto (Bld) on 06-17-2024 Basophils/100 WBC (Bld) 1.4 % 0.2-2.0 [facility] Cholesterol in LDL Calc [Mas s/Vol]on 06-17-2024 Cholesterol in LDL [Mass/Vol] 72.0 mg/dL [facility] Comment on above: <100 mg/dl [id number] 0-129 mg/dl NEAR OR ABOVE [id number] mg/dl BORDERLINE [id number] mg/dl HIGH>190 mg/dl VERY HIGH Cholesterol in VLDL Calc [Ma ss/Vol]on 06-17-2024 Cholesterol in VLDL [Mass/Vol] 33.4 mg/dL [facility] Eosinophils/100 WBC Auto (Bl d)on 06-17-2024 Eosinophils/100 WBC (Bld) 1.8 % 0.9-7.0 [facility] Erythrocyte distribution wid th Auto (RBC) [Ratio]on 06-17-2024 Erythrocyte distribution width (RBC) [Ratio] 17.7 % High 11.0-15.0 [facility] Hematocrit Auto (Bld) [Volum e fraction]on 06-17-2024 Hematocrit (Bld) [Volume fraction] 33.7 % Low 36.0-48.0 [facility] Hemoglobin [Mass/volume] in Bloodon 06-17-2024 Hemoglobin (Bld) [Mass/Vol] 9.8 g/dL Low 12.0-16.0 [facility] INR in Platelet poor plasma by Coagulation assayon 06-17-2024 INR Coag (PPP) [Relative time] 0.95 {INR} [facility] Comment on above: DESIRED INR:2.0-3.0 CONDITIONS NOT LISTED BELOW2.5-3.5 FOR PROSTHETIC HEART VALVE REPLACEMENT2.5-3.5 RECURRENT THROMBOSIS Laboratory - Chemistry and C hemistry - challengeon 06-17-2024 Cholesterol [Mass/Vol] 171 mg/dL <=200 [facility] Cholesterol in HDL [Mass/Vol] 66 mg/dL High 40-60 [facility] Comment on above: > or =60 mg/dl - LOW CARDIOVASCULAR RISK<40 mg/dl - HIGH CARDIOVASCULAR RISK Free T4 [Mass/Vol] 0.78 ng/dL 0.76-1.46 [facility] Triglyceride [Mass/Vol] 167 mg/dL High <=150 [facility] TSH Qn 6.061 m[IU]/L High 0.358-3.74 0 [facility] Laboratory - Hematology and Cell countson 06-17-2024 Immature granulocytes/100 WBC (Bld) 0.0 % 0.0-0.5 [facility] Leukocytes [#/volume] correc janell for nucleated erythrocytes in Blood by Automated counon 06-17-2024 WBC corrected for nucl RBC Auto (Bld) [#/Vol] 5.0 10 3/uL 4.0-11.0 [facility] Lymphocytes Auto (Bld) [#/Vo l]on 06-17-2024 Lymphocytes (Bld) [#/Vol] 1.9 10 3/uL 1.2-3.8 [facility] Lymphocytes/100 WBC Auto (Bl d)on 06-17-2024 Lymphocytes/100 WBC (Bld) 37.1 % 20.5-60.0 [facility] MCH Auto (RBC) [Entitic mass ]on 06-17-2024 MCH (RBC) [Entitic mass] 21.5 pg Low 26.7-34.0 [facility] MCHC Auto (RBC) [Mass/Vol]on 06-17-2024 MCHC (RBC) [Mass/Vol] 29.1 g/dL Low 29.9-35.2 [facility] MCV Auto (RBC) [Entitic vol] on 06-17-2024 MCV (RBC) [Entitic vol] 74.1 fL Low 81.0-99.0 [facility] Monocytes Auto (Bld) [#/Vol] on 06-17-2024 Monocytes (Bld) [#/Vol] 0.4 10 3/uL 0.3-0.8 [facility] Monocytes/100 WBC Auto (Bld) on 06-17-2024 Monocytes/100 WBC (Bld) 8.0 % 1.7-12.0 [facility] Neutrophils Auto (Bld) [#/Vo l]on 06-17-2024 Neutrophils (Bld) [#/Vol] 2.6 10 3/uL 1.4-6.5 [facility] Neutrophils/100 WBC Auto (Bl d)on 06-17-2024 Neutrophils/100 WBC (Bld) 51.7 % 43.0-75.0 [facility] No Panel Informationon 06-17 Eosinophils # (Auto) 0.1 10 3/uL 0.0-0.7 [facility] Immature Granulocyte # (Auto) 0.00 10 3/uL 0.00-0.03 [facility] Platelet mean volume Auto (B ld) [Entitic vol]on 06-17-2024 Platelet mean volume (Bld) [Entitic vol] 9.2 fL Low 9.5-13.5 [facility] Platelets Auto (Bld) [#/Vol] on 06-17-2024 Platelets (Bld) [#/Vol] 400 10 3/uL 150-450 [facility] Prothrombin time (PT)on 06-01 PT Coag (PPP) [Time] 10.1 s 9.0-11.6 [facility] RBC Auto (Bld) [#/Vol]on RBC (Bld) [#/Vol] 4.55 10 6/uL 4.20-5.40 [facility] Serum or plasma total choles terol/high density lipoprotein (HDL) cholesterol mass bridget 06-17-2024 Cholesterol.total/Chol esterol in HDL [Mass ratio] 2.6 {ratio} [facility] Comment on above: 3.3 - 4.4 LOW RISK4. 4 - 7.1 AVERAGE RISK7.1 - 11.0 MODERATE RISK>11.0 HIGH RISK Estimated glomerular filtrat ion rate (GFR) non- Americanon 01-11-2024 GFR/1.73 sq M.predicted among non-blacks MDRD (S/P/Bld) [Vol rate/Area] mL/min/{1.73_m2} >=60 [facility] Laboratory - Chemistry and C hemistry - challengeon 01-11-2024 Creatinine [Mass/Vol] 0.85 mg/dL 0.55-1.02 [facility] GFR/1.73 sq M.predicted MDRD (S/P/Bld) [Vol rate/Area] mL/min/{1.73_m2} >=60 [facility] XR hip RT min 2V(w/wo pelvis )*on 10-17-2023 XR hip RT min 2V(w/wo pelvis)* [facility] [employer] Other XR hip RT min 2V(w/wo pelvis)* [facility] [employer] Other XR hip RT min 2V(w/wo pelvis)* [address] [employer] Other XR hip RT min 2V(w/wo pelvis)* [place] [address] [employer] Other XR hip RT min 2V(w/wo pelvis)* XRay Report [employer] Other XR hip RT min 2V(w/wo pelvis)* Signed [employer] Other XR hip RT min 2V(w/wo pelvis)* Patient: Nicol Smith MR#: [id number] [employer] Other XR hip RT min 2V(w/wo pelvis)* 9 [employer] Other XR hip RT min 2V(w/wo pelvis)* : 1960 Acct:[id number] [employer] Other XR hip RT min 2V(w/wo pelvis)* Age/Sex: 63 / F ADM Date: 10/17/23 [employer] Other XR hip RT min 2V(w/wo pelvis)* Loc: [facility] [place] [facility] [place]: Type: [facility] [employer] Other XR hip RT min 2V(w/wo pelvis)* Attending Dr: David Mcfarland II, MD [employer] Other XR hip RT min 2V(w/wo pelvis)* Copies to: David Mcfarland MD [employer] Other XR hip RT min 2V(w/wo pelvis)* Ordering Provider: David Mcfarland MD [employer] Other XR hip RT min 2V(w/wo pelvis)* Date of Service: 10/17/23 [employer] Other XR hip RT min 2V(w/wo pelvis)* XR/XR hip RT min 2V(w/wo pelvis)*: Aftercare following joint replacement [employer] Other XR hip RT min 2V(w/wo pelvis)* surgery;Presence of ri [employer] Other XR hip RT min 2V(w/wo pelvis)* 2 views right hip with single view pelvis plain film [employer] Other XR hip RT min 2V(w/wo pelvis)* COMPARISON: 09/03/2023 [employer] Other XR hip RT min 2V(w/wo pelvis)* HISTORY: Status post right total hip arthroplasty [employer] Other XR hip RT min 2V(w/wo pelvis)* ACUTE FINDINGS: None [employer] Other XR hip RT min 2V(w/wo pelvis)* DEGENERATIVE CHANGE: Unremarkable [employer] Other XR hip RT min 2V(w/wo pelvis)* SOFT TISSUE FINDINGS: Unremarkable [employer] Other XR hip RT min 2V(w/wo pelvis)* JOINT EFFUSION: None [employer] Other XR hip RT min 2V(w/wo pelvis)* POSTOP CHANGES: Stable bilateral hip arthroplasties. [employer] Other XR hip RT min 2V(w/wo pelvis)* BONY MINERALIZATION: Adequate [employer] Other XR hip RT min 2V(w/wo pelvis)* XR/XR hip RT min 2V(w/wo pelvis)* [employer] Other XR hip RT min 2V(w/wo pelvis)* IMPRESSION: Stable right hip arthroplasty. [employer] Other XR hip RT min 2V(w/wo pelvis)* Impression dictated by: Kane Katz M.D.10/17/2023 3:39 PM [employer] Other XR hip RT min 2V(w/wo pelvis)* Dictation Location: [place] [address] [employer] Other XR hip RT min 2V(w/wo pelvis)* Transcribed By: PWS 10/17/23 153 [employer] Other XR hip RT min 2V(w/wo pelvis)* Dictated By: Kane Katz DO 10/17/23 1531 [employer] Other XR hip RT min 2V(w/wo pelvis)* Signed By: [employer] Other XR hip RT min 2V(w/wo pelvis)* 10/17/23 1531 [employer] Other Automated erythrocytes count in urine sediment (number/area)Ordered By: David Mcfarland on 08-28-2023 RBC Auto (Urine sed) [#/Area] 1-2 [HPF] 0-4 [facility] Automated leukocytes count i n urine sediment (number/area)Ordered By: David Mcfarland on 08-28-2023 WBC Auto (Urine sed) [#/Area] 10-19 [HPF] 0-4 [facility] Basophils Auto (Bld) [#/Vol] Ordered By: David Mcfarland on 08-28-2023 Basophils (Bld) [#/Vol] 0.1 10*3/uL 0.0-0.2 [facility] Basophils/100 WBC Auto (Bld) Ordered By: David Mcfarland on 08-28-2023 Basophils/100 WBC (Bld) 1.1 % . [facility] Bilirubin Test strip Ql (U)O rdered By: David Mcfarland on 08-28-2023 Bilirubin Ql (U) Negative Negative [facility] Calcium [Mass/volume] in Ser um or PlasmaOrdered By: David Mcfarland on 08-28-2023 Calcium [Mass/Vol] 9.7 mg/dL 8.6-10.3 [facility] Carbon dioxide, total [Moles /volume] in Serum or PlasmaOrdered By: David Mcfarland on 08-28-2023 CO2 [Moles/Vol] 26.1 mmol/L 21.0-31.0 [facility] Chloride [Moles/volume] in S adela or PlasmaOrdered By: David Mcfarland on 08-28-2023 Chloride [Moles/Vol] 107 mmol/L 98-107 [facility] Color Auto (U)Ordered By: Arleth Mcfarland on 08-28-2023 Color (U) Yellow Yellow [facility] Creatinine [Mass/volume] in Serum or PlasmaOrdered By: David Mcfarland on 08-28-2023 Creatinine [Mass/Vol] 0.96 mg/dL 0.60-1.20 [facility] Eosinophils Auto (Bld) [#/Vo l]Ordered By: David Mcfarland on 08-28-2023 Eosinophils (Bld) [#/Vol] 0.1 10*3/uL 0.0-0.45 [facility] Eosinophils/100 WBC Auto (Bl d)Ordered By: David Mcfarland on 08-28-2023 Eosinophils/100 WBC (Bld) 1.0 % . [facility] Erythrocyte distribution wid th Auto (RBC) [Ratio]Ordered By: David Mcfarland on 08-28-2023 Erythrocyte distribution width (RBC) [Ratio] 17.5 % 11.9-15.3 [facility] Fructosamine [Moles/volume] in Serum or PlasmaOrdered By: David Mcfarland on 08-28-2023 Fructosamine [Moles/Vol] 205 umol/L 0-285 [facility] Comment on above: Published reference interval for apparently healthysubjects between age 20 and 60 is 205 - 285 umol/L and in apoorly controlled diabetic population is 228 - 563 umol/Lwith a mean of 396 umol/L.Performed at: - [facility] [id number] Director: Luis Mukherjee PhD, Phone: [phone] Glucose [Mass/volume] in Ser um or PlasmaOrdered By: David Mcfarland on 08-28-2023 Glucose [Mass/Vol] 98 mg/dL 70-100 [facility] Comment on above: ADA recommended refe rence rangeRandom Glucose Reference Range is dependent on time and content of last meal. Glucose of more than 200 mg/dL in a nonstressed, ambulatory subject supports the diagnosis of Diabetes Mellitus. Hematocrit Auto (Bld) [Volum e fraction]Ordered By: David Mcfarland on 08-28-2023 Hematocrit (Bld) [Volume fraction] 36.9 % 34.0-46.4 [facility] Hemoglobin [Mass/volume] in BloodOrdered By: David Mcfarland on 08-28-2023 Hemoglobin (Bld) [Mass/Vol] 11.9 g/dL 11.8-15.4 [facility] Ketones Auto test strip (U) [Mass/Vol]Ordered By: David Mcfarland on 08-28-2023 Ketones (U) [Mass/Vol] Negative Negative [facility] Laboratory - UrinalysisOrder ed By: David Mcfarland on 08-28-2023 Hyaline casts LM Ql (Urine sed) 0-8 [LPF] 0-8 [facility] Leukocytes [#/volume] correc janell for nucleated erythrocytes in Blood by Automated counOrdered By: David Mcfarland on 08-28-2023 WBC corrected for nucl RBC Auto (Bld) [#/Vol] 6.4 10*3/uL 3.8-11.6 [facility] Lymphocytes Auto (Bld) [#/Vo l]Ordered By: David Mcfarland on 08-28-2023 Lymphocytes (Bld) [#/Vol] 1.6 10*3/uL 1.00-4.8 [facility] Lymphocytes/100 WBC Auto (Bl d)Ordered By: David Mcfarland on 08-28-2023 Lymphocytes/100 WBC (Bld) 25.3 % . [facility] MCH Auto (RBC) [Entitic mass ]Ordered By: David Mcfarland on 08-28-2023 MCH (RBC) [Entitic mass] 25.0 pg 24.7-34.3 [facility] MCHC Auto (RBC) [Mass/Vol]Or dered By: David Mcfarland on 08-28-2023 MCHC (RBC) [Mass/Vol] 32.1 g/dL 32.0-35.0 [facility] MCV Auto (RBC) [Entitic vol] Ordered By: David Mcfarland on 08-28-2023 MCV (RBC) [Entitic vol] 78.0 fL 80-100 [facility] Monocytes Auto (Bld) [#/Vol] Ordered By: David Mcfarland on 08-28-2023 Monocytes (Bld) [#/Vol] 0.5 10*3/uL 0.0-0.8 [facility] Monocytes/100 WBC Auto (Bld) Ordered By: David Mcfarland on 08-28-2023 Monocytes/100 WBC (Bld) 7.6 % . [facility] Neutrophils Auto (Bld) [#/Vo l]Ordered By: David Mcfarland on 08-28-2023 Neutrophils (Bld) [#/Vol] 4.2 10*3/uL 1.8-7.7 [facility] Neutrophils/100 WBC Auto (Bl d)Ordered By: David Mcfarland on 08-28-2023 Neutrophils/100 WBC (Bld) 65.0 % . [facility] Nitrite Test strip Ql (U)Ord ered By: David Mcfarland on 08-28-2023 Nitrite Ql (U) Negative Negative [facility] No Panel InformationOrdered By: David Mcfarland on 08-28-2023 Estimated GFR (CKD-EPI) > 60.0 mL/Min [facility] Pharmacy Creatinine Clearance (Chem N/A [facility] Nucleated erythrocytes [Pres ence] in Blood by Automated countOrdered By: David Mcfarland on 08-28-2023 Nucleated RBC Auto Ql (Bld) 0.1 /100{WBC} 0-0.5 [facility] Platelet mean volume Auto (B ld) [Entitic vol]Ordered By: David Mcfarland on 08-28-2023 Platelet mean volume (Bld) [Entitic vol] 8.0 fL 6.3-10.7 [facility] Platelets Auto (Bld) [#/Vol] Ordered By: David Mcfarland on 08-28-2023 Platelets (Bld) [#/Vol] 387 10*3/uL 150-450 [facility] Potassium [Moles/volume] in Serum or PlasmaOrdered By: David Mfcarland on 08-28-2023 Potassium [Moles/Vol] 4.2 mmol/L 3.5-5.1 [facility] Protein Auto test strip (U) [Mass/Vol]Ordered By: David Mcfarland on 08-28-2023 Protein (U) [Mass/Vol] Negative Negative [facility] RBC Auto (Bld) [#/Vol]Ordere d By: David Mcfarland on 08-28-2023 RBC (Bld) [#/Vol] 4.74 10*6/uL 3.60-5.00 [facility] Serum or plasma anion gap de terminationOrdered By: David Mcfarland on 08-28-2023 Anion gap [Moles/Vol] 11.1 mmol/L 6.0-15.0 [facility] Sodium [Moles/volume] in Ser um or PlasmaOrdered By: David Mcfarland on 08-28-2023 Sodium [Moles/Vol] 140 mmol/L 136-145 [facility] Specific gravity Auto test s trip (U) [Rel density]Ordered By: David Mcfarland on 08-28-2023 Specific gravity (U) [Rel density] 1.020 1.001-1.03 0 [facility] Squamous epithelial cells de tection in urine sediment by light microscopyOrdered By: David Mcfarland on 08-28-2023 Epithelial cells.squamous LM Ql (Urine sed) 3-4 [HPF] 0-2 [facility] Urea nitrogen [Mass/volume] in Serum or PlasmaOrdered By: David Mcfarland on 08-28-2023 Urea nitrogen [Mass/Vol] 17 mg/dL 7-25 [facility] Urine bacteria detection by automated methodOrdered By: David Mcfarland on 08-28-2023 Bacteria Auto Ql (U) None seen None Seen [facility] Urine clarity by refractomet ry automatedOrdered By: David Mcfarland on 08-28-2023 Clarity Refractometry automated (U) Clear Clear [facility] Urine culture routineOrdered By: David Mcfarland on 08-28-2023 Bacteria identified Cx Nom (U) 2 Days [facility] Urine glucose measurement by automated test strip (mass/volume)Ordered By: David Mcfarland on 08-28-2023 Glucose Auto test strip (U) [Mass/Vol] Normal mg/dL Normal [facility] Urine hemoglobin detection b y automated test stripOrdered By: aDvid Mcfarland on 08-28-2023 Hemoglobin Auto test strip Ql (U) Negative Negative [facility] Urine leukocyte esterase det ection by automated test stripOrdered By: David Mcfarland on 08-28-2023 Leukocyte esterase Auto test strip Ql (U) 3+ Negative [facility] Urobilinogen Auto test strip (U) [Mass/Vol]Ordered By: David Mcfarland on 08-28-2023 Urobilinogen (U) [Mass/Vol] Normal mg/dL Normal [facility] WBC Auto (Bld) [#/Vol]Ordere d By: David Mcfarland on 08-28-2023 WBC (Bld) [#/Vol] 6.4 10*3/uL 3.8-11.6 [facility] pH Auto test strip (U)Ordere d By: David Mcfarland on 08-28-2023 pH (U) 5.5 [pH] 5.0-9.0 [facility] TSHon 01-19-2023 TSH 5.502 uIU/mL Critically high 0.358-3.74 0 [facility] Comment on above: Performed By: #### T SH ####[facility] [id number] [place], [place] [address]Dr. Darrick Cao GTT 2 HRon 12-12-2022 Glucose [Mass/Vol] 117 mg/dL Critically high 74-106 [facility] Comment on above: Performed By: #### G TT2 ####[facility] [id number] [place] [address]Dr. Darrick Cao Glucose [Mass/Vol] 227 mg/dL Normal [facility] Comment on above: Performed By: #### G TT2 ####[facility] [address] [address]Dr. Darrick Cao Glucose [Mass/Vol] 121 mg/dL Normal [facility] Comment on above: Performed By: #### G TT2 ####[facility] [address] [address]Dr. Darrick Cao TSHon 12-12-2022 TSH 6.852 uIU/mL Critically high 0.358-3.74 0 [facility] Comment on above: Performed By: #### P OCGLUC #### [facility] [address] [address] [address] Darrick Cao Outside Colonoscopyon 2022 Outside Colonoscopy [id number]#[id number]:12 7 Normal [facility] Reminderson 12-07-2022 Reminders - From: Yu Waters LPN To: N - Clinical; Sent: 12/07/2022 08:47:38 EST Show up: 11/08/2032 07:00:00 EST Subject: colonoscopy recall Due Date/Time: 12/06/2032 07:00:00 EST Reminder/Recall Patient is due for screening colonoscopy 12/06/2032. [facility] Consent for Procedure/Surger yon 11-09-2022 Consent for Procedure/Surgery [id number]:12 7 [facility] Consent for Procedure/Surgery [id number]:12 7 [facility] Facesheeton 11-09-2022 Facesheet [id number]:12 7 [facility] Ambulatory Visit Summaryon 0 11-08-2022 Ambulatory [...] Screening for malignant neoplasm of colon Normal [facility] MG MAMM SCREEN 3D BONNIE CADon 11-03-2022 MG MAMM SCREEN 3D BONNIE CAD Patient: NICOL SMITHMiguel Exam Date: 11/03/2022 : 1960 Gender:F Ordering : DR UDAY WRAY . Admission #: [id number] Family : Order #: [id number] CLICK HERE TO VIEW EXAM RADIOLOGY REPORT [...] uterine cancer at age 52. LOCATION: [facility] BREAST COMPOSITION: Scattered areas fibroglandular density. [...] Kelly MD on 11/03/2022 at 11:04 Normal [facility] XR DEXA BONE DENSITYon 11-03 XR DEXA [...] by: ARIELA SCHWAB Date: 2022-11-03 11:11 Normal [facility] Comprehensive Metabolic Pane yuli 10-30-2022 Urea nitrogen [Mass/Vol] 20 mg/dL [employer] Other Comprehensive Metabolic Panel [employer] Other Comprehensive Metabolic Panel >60 [employer] Other Comprehensive Metabolic Panel 4.2 [employer] Other Albumin [Mass/Vol] 3.7 g/dL Normal 3.4-5.0 [employer] Other Comment on above: Performed By: #### T SH, CMP, LIPID ####[facility] [address] [id number]. Darrick Cao Albumin/Globulin [Mass ratio] 0.9 {ratio} Normal [employer] Other Comment on above: Performed By: #### T SH, CMP, LIPID ####[facility] [address] [place], [place] [address]Dr. Darrick Cao ALP [Catalytic activity/Vol] 112 U/L Normal 46-116 [place] [employer] Other Comment on above: Performed By: #### T SH, CMP, LIPID ####[facility] [address] [place], [place] [address]Dr. Darrick Cao ALT [Catalytic activity/Vol] 34 U/L Normal 14-59 [employer] Other Comment on above: Performed By: #### T SH, CMP, LIPID ####[facility] [address] [place] [id number]. Darrick Cao AST [Catalytic activity/Vol] 17 U/L Normal 15-37 [facility] [employer] Other Comment on above: Performed By: #### T SH, CMP, LIPID ####[facility] [address] [place], [place] [address]Dr. Darrick Cao Bilirubin [Mass/Vol] 0.4 mg/dL Normal 0.2-1.0 [facility] [employer] Other Comment on above: Performed By: #### T SH, CMP, LIPID ####[facility] [address] [place], [place] [address]Wv. Darrick Cao Calcium [Mass/Vol] 9.2 mg/dL Normal 8.5-10.1 [facility] [employer] Other Comment on above: Performed By: #### T SH, CMP, LIPID ####[facility] [address] [place], [place] [address]Wm. Darrick Cao Chloride [Moles/Vol] 105 mmol/L Normal 98-107 [facility] [employer] Other Comment on above: Performed By: #### T SH, CMP, LIPID ####[facility] [address]asm[address] [address]Dr. Darrick Cao CO2 [Moles/Vol] 27.0 mmol/L Normal 21.0-32.0 [facility] [employer] Other Comment on above: Performed By: #### T JASON, CMP, LIPID ####[facility] [address] [place] [id number]. Darrick Cao Creatinine [Mass/Vol] 0.86 mg/dL Normal 0.55-1.02 [facility] [employer] Other Comment on above: Performed By: #### T JASON, CMP, LIPID ####[facility] [address] [place] [id number]. Darrick Cao Glucose [Mass/Vol] 114 mg/dL Critically high 74-106 [facility] [employer] Other Comment on above: Performed By: #### T SH, CMP, LIPID ####[facility] [address] [place] [phone]. Darrick Cao Potassium [Moles/Vol] 3.9 mmol/L Normal 3.5-5.1 [facility] [employer] Other Comment on above: Performed By: #### T SH, CMP, LIPID ####[facility] [address] [place] [id number]. Darrick Cao Protein [Mass/Vol] 7.9 g/dL Normal 6.4-8.2 [place] [facility] [employer] Other Comment on above: Performed By: #### T SH, CMP, LIPID ####[facility] [address] [place] [phone]. Darrick Cao Sodium [Moles/Vol] 143 mmol/L Normal 136-145 [employer] [employer] Other Comment on above: Performed By: #### T SH, CMP, LIPID ####[facility] [address] [place], [place] [address]Br. Darrick Cao FREE T4on 10-30-2022 Free T4 [Mass/Vol] 0.77 ng/dL Normal 0.76-1.46 [facility] Comment on above: Performed By: #### F T4 ####[facility] [address] [place] [phone]. Darrick Cao LIPID PROFILEon 10-30-2022 CHOL-HDL RATIO NORM SEE BELOW Normal [facility] Comment on above: Result Comment: 3.3 - 4.4 LOW RISK 4.4 - 7.1 AVERAGE RISK 7.1 - 11.0 MODERATE RISK >11.0 HIGH RISK Performed By: #### T SH, CMP, LIPID ####[facility] [address] [place] [phone]. Darrick Cao Cholesterol in LDL [Mass/Vol] 84.6 mg/dL Normal [facility] Comment on above: Performed By: #### T SH, CMP, LIPID ####[facility] [address] [place], [place] [address]Fe. Darrick Cao HDL NORMAL > or = 60 mg/dl - LO W CARDIOVASCULAR RISK <40 mg/dl - HIGH CARDIOVASCULAR RISK Normal [facility] Comment on above: Performed By: #### T SH, CMP, LIPID ####[facility] [address] [place], [place] [address]Js. Darrick Cao LDL CALC NORMAL SEE BELOW Normal [facility] Comment on above: Result Comment: <100 mg/dl OPTIMAL 100 - 129 mg/dl NEAR OR ABOVE OPTIMAL 130 - 159 mg/dl BORDERLINE HIGH 160 - 189 mg/dl HIGH >190 mg/dl VERY HIGH Performed By: #### T SH, CMP, LIPID ####[facility] [address] [place], [place] [address]Ux. Darrick Cao Triglyceride [Mass/Vol] 222 mg/dL Critically high <=150 [facility] Comment on above: Performed By: #### T SH, CMP, LIPID ####[facility] [address]jm[address] [place], [place] [address]Lv. Darrick Cao VLDL CALC 44.4 mg/dL Normal [facility] Comment on above: Performed By: #### T SH, CMP, LIPID ####[facility] [address]cc[address] [place], [place] [address]Sl. Darrick Cao Lipid Panelon 10-30-2022 Cholesterol in LDL Elph Qn 84.6 [facility] [employer] Other Lipid Panel 222 [employer] Other Lipid Panel 44.4 [employer] Other Cholesterol [Mass/Vol] 185 mg/dL Normal <=200 [facility] [employer] Other Comment on above: Performed By: #### T JASON, CMP, LIPID ####[facility] [address] [place], [place] [address]Ut. Darrick Cao Cholesterol in HDL [Mass/Vol] 56 mg/dL Normal 40-60 [employer] Other Comment on above: Performed By: #### T JASON, CMP, LIPID ####[facility] [address] [place], [place] [address]Rh. Darrick Cao Cholesterol.total/Chol esterol in HDL [Mass ratio] 3.3 {ratio} Normal [facility] [employer] Other Comment on above: Performed By: #### T JASON, CMP, LIPID ####[facility] [address]ptqx[address] [place], [place] [address]It. Darrick Cao PROF 14(COMP METB)on 023 Anion gap [Moles/Vol] 14.9 mmol/L Normal [facility] Comment on above: Performed By: #### T SH, CMP, LIPID ####[facility] [address] [address]Dr. Darrick Cao EGFR-AF CYPRIOT >60 Normal >=60 [facility] Comment on above: Performed By: #### T SH, CMP, LIPID ####[facility] [address] [place] [phone]. Darrick Cao EGFR-NON AF CYPRIOT >60 Normal >=60 [facility] Comment on above: Performed By: #### T SH, CMP, LIPID ####[facility] [address] [address]Dr. Darrick Cao Globulin (S) [Mass/Vol] 4.2 g/dL Normal [facility] Comment on above: Performed By: #### T SH, CMP, LIPID ####[facility] [address] [place], [place] [address]Dr. Darrick Cao Urea nitrogen [Mass/Vol] 20.0 mg/dL Critically high 7.0-18.0 [facility] Comment on above: Performed By: #### T SH, CMP, LIPID ####[facility] [address] [place], [place] [address]Dr. Darrick Cao Urea nitrogen/Creatinine [Mass ratio] 23.3 mg/mg Normal [facility] Comment on above: Performed By: #### T SH, CMP, LIPID ####[facility] [address] [place], [place] [address]Dr. Darrick Cao TSHon 10-30-2022 TSH 6.415 uIU/mL Critically high 0.358-3.74 0 [facility] Comment on above: Performed By: #### T SH, CMP, LIPID ####[facility] [address] [place], [place] [address]Dr. Darrick Cao Thyroid Stim Hormone w/Rflxo n 10-30-2022 Thyroid Stim Hormone w/Rflx 6.415 [employer] Other VITAMIN B12on 10-30-2022 Cobalamin (Vitamin B12) [Mass/Vol] 664.0 pg/mL Normal 193.0-986. 0 [facility] Comment on above: Performed By: #### V ITB12 #### [facility] [address] [address] [address] Darrick Cao Vitamin B12on 10-30-2022 Cobalamin (Vitamin B12) [Mass/Vol] 664 pg/mL [employer] Other Automated erythrocytes count in urine sediment (number/area)Ordered By: aWqas Pierce on 10-23-2022 RBC Auto (Urine sed) [#/Area] 0-1 [HPF] 0-4 [facility] Automated leukocytes count i n urine sediment (number/area)Ordered By: Waqas Pierce on 10-23-2022 WBC Auto (Urine sed) [#/Area] 10-19 [HPF] 0-4 [facility] Bilirubin Test strip Ql (U)O rdered By: Waqas Pierce on 10-23-2022 Bilirubin Ql (U) Negative Negative [facility] Color Auto (U)Ordered By: Shay Pierce on 10-23-2022 Color (U) Yellow Yellow [facility] Ketones Auto test strip (U) [Mass/Vol]Ordered By: Waqas Pierce on 10-23-2022 Ketones (U) [Mass/Vol] Negative Negative [facility] - UrinalysisOrder ed By: Waqas Pierce on 10-23-2022 Hyaline casts LM Ql (Urine sed) 0-8 [LPF] 0-8 [facility] Nitrite Test strip Ql (U)Ord ered By: Waqas Pierce on 10-23-2022 Nitrite Ql (U) Negative Negative [facility] Protein Auto test strip (U) [Mass/Vol]Ordered By: Waqas Pierce on 10-23-2022 Protein (U) [Mass/Vol] Negative Negative [facility] Specific gravity Auto test s trip (U) [Rel density]Ordered By: Waqas Pierce on 10-23-2022 Specific gravity (U) [Rel density] 1.016 1.001-1.03 0 [facility] Squamous epithelial cells de tection in urine sediment by light microscopyOrdered By: Waqas Pierce on 10-23-2022 Epithelial cells.squamous LM Ql (Urine sed) 5-9 [HPF] 0-2 [facility] Urine Cultureon 10-23-2022 Bacteria identified Cx Nom (U) [employer] Other Urine bacteria detection by automated methodOrdered By: Waqas Pierce on 10-23-2022 Bacteria Auto Ql (U) None seen None Seen [facility] Urine clarity by refractomet ry automatedOrdered By: Waqas Pierce on 10-23-2022 Clarity Refractometry automated (U) Clear Clear [facility] Urine glucose measurement by automated test strip (mass/volume)Ordered By: Waqas Pierce on 10-23-2022 Glucose Auto test strip (U) [Mass/Vol] Normal mg/dL Normal [facility] Urine hemoglobin detection b y automated test stripOrdered By: Waqas Pierce on 10-23-2022 Hemoglobin Auto test strip Ql (U) Negative Negative [facility] Urine leukocyte esterase det ection by automated test stripOrdered By: Waqas Pierce on 10-23-2022 Leukocyte esterase Auto test strip Ql (U) 3+ Negative [facility] Urobilinogen Auto test strip (U) [Mass/Vol]Ordered By: Waqas Pierce on 10-23-2022 Urobilinogen (U) [Mass/Vol] Normal mg/dL Normal [facility] pH Auto test strip (U)Ordere d By: Waqas Pierce on 10-23-2022 pH (U) 6.0 [pH] 5.0-9.0 [facility] A1C HEMOGLOBINon 10-13-2022 HbA1c (Bld) [Mass fraction] 5.9 % [employer] Other HbA1c (Bld) [Mass fraction]o n 10-13-2022 A1C HEMOGLOBIN [employer] Other XR FOOT LT MIN 3 VIEWSon [...] ALEX RYAN Date: 2022-09-20 16:40 Normal [facility] XR LSPINE 2_3 VIEWSon 2021 XR LSPINE 2_3 VIEWS EXAMINATION: XR LSPI NE 2_3 VIEWS HISTORY: Low back pain COMPARISON: 09/26/2019 FINDINGS: BONES: Mild dextrocurvature. Moderate to severe spondylosis and facet osteoarthropathy DISC SPACES: Multilevel disc space narrowing most significant at L5-S1 PARASPINOUS: Negative. No paraspinous abnormality is seen. OTHER: Severe right hip osteoarthropathy with lvim-jo-xztu articulation. Left hip arthroplasty IMPRESSION: Moderate to severe degenerative changes Electronically authenticated by: SHAWNEE KELLY Date: 2022-08-20 11:47 Normal [facility] PAP ACOG PANEL 2: 30 to 65on 06-13-2022 . . Normal [facility] Comment on above: Result Comment: Perf ormed at: WB Performed By: #### [id number] ####[facility] [address] [address]DrMiguel Cao Age Gdln ACOG Testing 30-65 Normal [facility] Comment on above: Performed By: #### 4 [id number] ####[facility] [address] [place] [phone] Cao DIAGNOSIS: Comment Normal [facility] Comment on above: Result Comment: NEGA TIVE FOR INTRAEPITHELIAL LESION OR MALIGNANCY. THIS SPECIMEN WAS RESCREENED PART OF OUR [employer]PER[employer] PROGRAM. Performed at: WB Performed By: #### 4 [id number] ####[facility] [address] [address]DrMiguel Cao HPV Aptima Negative Normal Negative [facility] Comment on above: Result Comment: This nucleic acid amplification test detects fourteen high-risk HPV types (16,18,31,33,35,39,45,51,52,56,58,59,66,68) without differentiation. Performed at: =G Performed By: #### 4 [id number] ####[facility] [address] [place] [phone] Cao Methodology: Comment Normal [facility] Comment on above: Result Comment: This liquid based ThinPrep(R) pap test was screened with the use of an image guided system. Performed at: WB Performed By: #### 4 [id number] ####[facility] [address] [place] [phone]. Darrick Cao Note: Comment Normal [facility] Comment on above: Result Comment: The Pap smear is a screening test designed to aid in the detection of premalignant and malignant conditions of the uterine cervix. It is not a diagnostic procedure and should not be used as the sole means of detecting cervical cancer. Both false-positive and false-negative reports do occur. . Performed at: WB Performed By: #### 4 [id number] ####[facility] [address] [place] [phone]. Darrick Cao Performed by: Comment Normal [facility] Comment on above: Result Comment: Solange Ann, Resident Hall Director (ASCP) Performed at: WB Performed By: #### 4 [id number] ####[facility] [address] [place] [phone] Cao QC reviewed by: Comment Normal [facility] Comment on above: Result Comment: Navi Rush, Supervisory Resident Hall Director (ASCP) Performed at: WB Performed By: #### 4 [id number] ####[facility] [address] [place] [phone] Cao Specimen adequacy: Comment Normal [facility] Comment on above: Result Comment: Sati sfactory for evaluation. Endocervical and/or squamous metaplastic cells (endocervical component) are present. Performed at: WB Performed By: #### 4 [id number] ####[facility] [address] [place], [place] [id number]. Darrick Cao US PELVIS AND TRANSVAGon US [...] ARIELA SCHWAB Date: 2022-06-13 14:50 Normal [facility] ACID FAST SMEAR AND CXon Acid Fast Culture Negative Normal [facility] Comment on above: Result Comment: No a liliya fast bacilli isolated after 6 weeks. Performed By: #### A FB ####[facility] [address] [place], [place] [address]Dr. Darrick Cao Acid Fast Smear Negative Normal [facility] Comment on above: Performed By: #### A FB ####[facility] [address] [place], [place] [address]Dr. Darrick Cao [employer] Specimen Processing Tissue Grinding Normal [facility] Comment on above: Performed By: #### A FB ####[facility] [address] [address]Dr. Darrick Cao FUNGAL CULTUREon 05-23-2022 Fungus (Mycology) Culture Final report Normal [facility] Comment on above: Performed By: #### C XFUN ####[facility] [address] [place], [place] [address]Dr. Darrick Cao Fungus Stain Final report Normal [facility] Comment on above: Performed By: #### C XFUN ####[facility] [address] [place] [phone]. Darrick Cao Result 1 Comment Normal [facility] Comment on above: Result Comment: MAYE/ Calcofluor preparation: no fungus observed. Performed By: #### C XFUN ####[facility] [address] [address]Dr. Darrick Cao Result Comment: No y east or mold isolated after 4 weeks. WOUND CULTUREon 04-28-2022 Bacteria identified Aer cx Nom (Unsp spec) Final report Normal [facility] Comment on above: Performed By: #### C XWND #### [facility] [address] [address] [address] Darrick Cao Result 1 Comment Normal [facility] Comment on above: Result Comment: No g rowth in 36 - 48 hours. Performed By: #### C XWND #### [facility] [address] [place] [address] Dr. Darrick Cao CULTURE WOUNDon 04-26-2022 CULTURE [...] S F Vancomycin 1 S F Normal [facility] Comment on above: Performed By: #### W OUNDCX ####[facility] [address] [address]Dr. Darrick Cao CBC AUTO DIFFon 04-25-2022 BASO # 0.0 103/ul Normal 0.0-0.1 [facility] Comment on above: Performed By: #### C XWND #### [facility] [address] [address] [address] Darrick Cao Basophils/100 WBC (Bld) 0.5 % Normal 0.2-2.0 [facility] Comment on above: Performed By: #### C XWND #### [facility] [address] [place] [address] Dr. Darrick Cao EO # 0.1 103/ul Normal 0.0-0.7 [facility] Comment on above: Performed By: #### C XWND #### [facility] [address] [place] [address] Dr. Darrick Cao Eosinophils/100 WBC (Bld) 1.1 % Normal 0.9-7.0 [facility] Comment on above: Performed By: #### C XWND #### [facility] [address] [place] [address] Dr. Darrick Cao Erythrocyte distribution width (RBC) [Ratio] 15.8 % Critically high 11.0-15.0 [facility] Comment on above: Performed By: #### C XWND #### [facility] [address] [place] [address] Dr. Darrick Cao Hematocrit (Bld) [Volume fraction] 31.7 % Critically low 36.0-48.0 [facility] Comment on above: Performed By: #### C XWND #### [facility] [address] [place] [address] Dr. Darrick Cao Hemoglobin (Bld) [Mass/Vol] 10.1 g/dL Critically low 12.0-16.0 [facility] Comment on above: Performed By: #### C XWND #### [facility] [address] [place] [address] Dr. Darrick Cao IG # 0.02 10e3/ul Normal 0.00-0.03 [facility] Comment on above: Performed By: #### C XWND #### [facility] [address] [place] [address] Dr. Darrick Cao IG % 0.3 % Normal 0.0-0.5 [facility] Comment on above: Performed By: #### C XWND #### [facility] [address] [place] [address] Dr. Darrick Cao LYMPH # 1.8 103/ul Normal 1.2-3.8 [facility] Comment on above: Performed By: #### C XWND #### [facility] [address] [place] [address] Dr. Darrick Cao Lymphocytes/100 WBC (Bld) 24.3 % Normal 20.5-60.0 [facility] Comment on above: Performed By: #### C XWND #### [facility] [address] [place] [address] Dr. Darrick Cao MANUAL DIFF REQ NO Normal [facility] Comment on above: Performed By: #### C XWND #### [facility] [address] [place] [address] Dr. Darrick Cao MCH (RBC) [Entitic mass] 28.0 pg Normal 26.7-34.0 [facility] Comment on above: Performed By: #### C XWND #### [facility] [address] [place] [address] Dr. Darrick Cao MCHC (RBC) [Mass/Vol] 31.9 g/dL Normal 29.9-35.2 [facility] Comment on above: Performed By: #### C XWND #### [facility] [address] [place] [address] Dr. Darrick Cao MCV (RBC) [Entitic vol] 87.8 fL Normal 81.0-99.0 [facility] Comment on above: Performed By: #### C XWND #### [facility] [address] [place] [address] Dr. Darrick Cao MONO # 0.5 103/ul Normal 0.3-0.8 [facility] Comment on above: Performed By: #### C XWND #### [facility] [address] [place] [address] Dr. Darrick Cao Monocytes/100 WBC (Bld) 7.2 % Normal 1.7-12.0 [facility] Comment on above: Performed By: #### C XWND #### [facility] [address] [place] [address] Dr. Darrick Cao NEUT # 5.0 103/ul Normal 1.4-6.5 [facility] Comment on above: Performed By: #### C XWND #### [facility] [address] [address] [address] Darrick Cao Neutrophils/100 WBC (Bld) 66.6 % Normal 43.0-75.0 [facility] Comment on above: Performed By: #### C XWND #### [facility] [address] [address] [address] Darrick Cao Platelet mean volume (Bld) [Entitic vol] 9.6 fL Normal 9.5-13.5 [facility] Comment on above: Performed By: #### C XWND #### [facility] [address] [address] [address] Darrick Cao PLT 295 103/ul Normal 150-450 [facility] Comment on above: Performed By: #### C XWND #### [facility] [address] [address] [address] Darrick Cao RBC 3.61 106/ul Critically low 4.20-5.40 [facility] Comment on above: Performed By: #### C XWND #### [facility] [address] [address] [address] Darrick Cao WBC 7.5 103/ul Normal 4.0-11.0 [facility] Comment on above: Performed By: #### C XWND #### [facility] [address] [address] [address] Darrick Cao ER URINE PROFILEon 2 Bilirubin Ql (U) Negative Normal NEGATIVE [facility] Comment on above: Performed By: #### U MICRO, ERUR ####[facility] [address] [place] [address]DrMiguel Cao Clarity (U) CLEAR Normal CLEAR [facility] Comment on above: Performed By: #### U MICRO, ERUR ####[facility] [address] [place] [id number] Cao Color (U) LT. YELLOW Normal YELLOW [facility] Comment on above: Performed By: #### U MICRO, ERUR ####[facility] [address] [place] [address]Dr. Darrick FORRESTAHD A micrscopic examina tion will be performed if indicated. Normal [facility] Comment on above: Performed By: #### U MICRO, ERUR ####[facility] [address] [place] [address]Dr. Darrick Cao Glucose Ql (U) Negative Normal NEGATIVE [facility] Comment on above: Performed By: #### U MICRO, ERUR ####[facility] [address] [place], [place] [address]Dr. Darrick Cao Hemoglobin Ql (U) SMALL Abnormal NEGATIVE [facility] Comment on above: Performed By: #### U MICRO, ERUR ####[facility] [address] [place], [place] [address]Dr. Darrick Cao Ketones Ql (U) Negative Normal NEGATIVE [facility] Comment on above: Performed By: #### U MICRO, ERUR ####[facility] [address] [place], [place] [address]Dr. Darrick Cao LEUKOCYTES Negative Normal NEGATIVE [facility] Comment on above: Performed By: #### U MICRO, ERUR ####[facility] [address] [place], [place] [address]Dr. Darrick Cao Nitrite Ql (U) Negative Normal NEGATIVE [facility] Comment on above: Performed By: #### U MICRO, ERUR ####[facility] [address] [address]Dr. Darrick Cao pH (U) 6.0 [pH] Normal 5-9 [facility] Comment on above: Performed By: #### U MICRO, ERUR ####[facility] [address] [address]Dr. Darrick Cao SPEC GRAVITY 1.020 Normal 1.005-<=1. 025 [facility] Comment on above: Performed By: #### U MICRO, ERUR ####[facility] [address] [address]Dr. Darrick Cao UA PROTEIN Negative Normal NEGATIVE/ TRACE [facility] Comment on above: Performed By: #### U MICRO, ERUR ####[facility] [address] [address]DrMiguel Cao UR MICRO IND INDICATED Normal [facility] Comment on above: Performed By: #### U MICRO, ERUR ####[facility] [address] [address]Dr. Darrick Cao Urobilinogen Qn (U) 0.2 {Larissa'U}/dL Normal 0.2 - 1. 0 [facility] Comment on above: Performed By: #### U MICRO, ERUR ####[facility] [address] [address]Dr. Darrick Cao POINT OF CARE GLUCOSEon 04-01 Glucose [Mass/Vol] 118 mg/dL Critically high 74-106 [facility] Comment on above: Performed By: #### P OCGLUC ####[facility] [address] [address]Dr. Darrick Cao PROF 14(COMP METB)on 022 Albumin [Mass/Vol] 2.9 g/dL Critically low 3.4-5.0 [facility] Comment on above: Performed By: #### P OCGLUC #### [facility] [address] [address] [address] Darrick Cao Albumin/Globulin [Mass ratio] 0.8 {ratio} Normal [facility] Comment on above: Performed By: #### P OCGLUC #### [facility] [address] [address] [address] Darrick Cao ALP [Catalytic activity/Vol] 113 U/L Normal 46-116 [facility] Comment on above: Performed By: #### P OCGLUC #### [facility] [address] [address] [address] Darrick Cao ALT [Catalytic activity/Vol] 56 U/L Normal 14-59 [facility] Comment on above: Performed By: #### P OCGLUC #### [facility] [address] [address] [address] Darrick Cao Anion gap [Moles/Vol] 8.8 mmol/L Normal [facility] Comment on above: Performed By: #### P OCGLUC #### [facility] [address] [place] [address] Dr. Darrick Cao AST [Catalytic activity/Vol] 30 U/L Normal 15-37 [facility] Comment on above: Performed By: #### P OCGLUC #### [facility] [address] [address] [address] Darrick Cao Bilirubin [Mass/Vol] 0.3 mg/dL Normal 0.2-1.0 [facility] Comment on above: Performed By: #### P OCGLUC #### [facility] [address] [place] [address] Dr. Darrick Cao Calcium [Mass/Vol] 8.6 mg/dL Normal 8.5-10.1 [facility] Comment on above: Performed By: #### P OCGLUC #### [facility] [address] [place] [address] Dr. Darrick Cao Chloride [Moles/Vol] 105 mmol/L Normal 98-107 [facility] Comment on above: Performed By: #### P OCGLUC #### [facility] [address] [place] [address] Dr. Darrick Cao CO2 [Moles/Vol] 30.4 mmol/L Normal 21.0-32.0 [facility] Comment on above: Performed By: #### P OCGLUC #### [facility] [address] [place] [address] Dr. Darrick Cao Creatinine [Mass/Vol] 0.82 mg/dL Normal 0.55-1.02 [facility] Comment on above: Performed By: #### P OCGLUC #### [facility] [address] [place] [address] Dr. Darrick Cao EGFR-AF CYPRIOT >60 Normal >=60 [facility] Comment on above: Performed By: #### P OCGLUC #### [facility] [address] [place] [address] Dr. Darrick Cao EGFR-NON AF CYPRIOT >60 Normal >=60 [facility] Comment on above: Performed By: #### P OCGLUC #### [facility] [address] [address] [address] Darrick Cao Globulin (S) [Mass/Vol] 3.6 g/dL Normal [facility] Comment on above: Performed By: #### P OCGLUC #### [facility] [address] [address] [address] Darrick Cao Glucose [Mass/Vol] 103 mg/dL Normal 74-106 [facility] Comment on above: Performed By: #### P OCGLUC #### [facility] [address] [address] [address] Darrick Cao Potassium [Moles/Vol] 4.2 mmol/L Normal 3.5-5.1 [facility] Comment on above: Performed By: #### P OCGLUC #### [facility] [address] [address] [address] Darrick Cao Protein [Mass/Vol] 6.5 g/dL Normal 6.4-8.2 [facility] Comment on above: Performed By: #### P OCGLUC #### [facility] [address] [address] [address] Darrick Cao Sodium [Moles/Vol] 140 mmol/L Normal 136-145 [facility] Comment on above: Performed By: #### P OCGLUC #### [facility] [address] [address] [address] Darrick Cao Urea nitrogen [Mass/Vol] 11.0 mg/dL Normal 7.0-18.0 [facility] Comment on above: Performed By: #### P OCGLUC #### [facility] [address] [address] [address] Darrick Cao Urea nitrogen/Creatinine [Mass ratio] 13.4 mg/mg Normal [facility] Comment on above: Performed By: #### P OCGLUC #### [facility] [address] [address] [address] Darrick Cao URINE MICROSCOPIC ONLYon BACTERIA NONE SEEN Normal NONE SEEN [facility] Comment on above: Performed By: #### U MICRO, ERUR ####[facility] [address] [address]Dr. Darrick Cao Bacteria identified Cx Nom (U) NOT INDICATED Normal [facility] Comment on above: Performed By: #### U MICRO, ERUR ####[facility] [address] [address]Dr. Adryyakov Cao CAST NONE SEEN Normal NONE SEEN [facility] Comment on above: Performed By: #### U MICRO, ERUR ####[facility] [address] [address]Dr. Darrick Cao Crystals LM Nom (Urine sed) NONE SEEN Normal NONE SEEN [facility] Comment on above: Performed By: #### U MICRO, ERUR ####[facility] [address] [place], [place] [address]Dr. Darrick Cao Epithelial cells LM Ql (Urine sed) RARE Normal NONE SEEN /RARE [facility] Comment on above: Performed By: #### U MICRO, ERUR ####[facility] [address] [place], [place] [address]Dr. Darrick Cao MUCOUS NONE SEEN Normal NONE SEEN [facility] Comment on above: Performed By: #### U MICRO, ERUR ####[facility] [address] [place], [place] [address]Dr. Darrick Cao RBC 5-10 Abnormal 0-2 [facility] Comment on above: Performed By: #### U MICRO, ERUR ####[facility] [address] [place], [place] [address]Dr. Darrick Cao WBC 0-2 Abnormal NONE SEEN [facility] Comment on above: Performed By: #### U MICRO, ERUR ####[facility] [address] [place], [place] [address]Dr. Darrick Cao XR CHEST 2 Von 04-25-2022 [...] AMY FOWLER Date: 2022-04-25 20:07 Normal [facility] CBC AUTO DIFFon 04-24-2022 BASO # 0.1 103/ul Normal 0.0-0.1 [facility] Comment on above: Performed By: #### P OCGLUC #### [facility] [address] [address] [address] Darrick Cao Basophils/100 WBC (Bld) 0.8 % Normal 0.2-2.0 [facility] Comment on above: Performed By: #### P OCGLUC #### [facility] [address] [place] [address] Dr. Darrick Cao EO # 0.1 103/ul Normal 0.0-0.7 [facility] Comment on above: Performed By: #### P OCGLUC #### [facility] [address] [place] [address] Dr. Darrick Cao Eosinophils/100 WBC (Bld) 1.9 % Normal 0.9-7.0 [facility] Comment on above: Performed By: #### P OCGLUC #### [facility] [address] [place] [address] Dr. Darrick Cao Erythrocyte distribution width (RBC) [Ratio] 15.6 % Critically high 11.0-15.0 [facility] Comment on above: Performed By: #### P OCGLUC #### [facility] [address] [place] [address] Dr. Darrick Cao Hematocrit (Bld) [Volume fraction] 35.4 % Critically low 36.0-48.0 [facility] Comment on above: Performed By: #### P OCGLUC #### [facility] [address] [place] [address] Dr. Darrick Cao Hemoglobin (Bld) [Mass/Vol] 11.4 g/dL Critically low 12.0-16.0 [facility] Comment on above: Performed By: #### P OCGLUC #### [facility] [address] [address] [address] Darrick Cao IG # 0.02 10e3/ul Normal 0.00-0.03 [facility] Comment on above: Performed By: #### P OCGLUC #### [facility] [address] [address] [address] Darrick Cao IG % 0.3 % Normal 0.0-0.5 [facility] Comment on above: Performed By: #### P OCGLUC #### [facility] [address] [place] [address] Dr. Darrick Cao LYMPH # 1.9 103/ul Normal 1.2-3.8 [facility] Comment on above: Performed By: #### P OCGLUC #### [facility] [address] [place] [address] Dr. Darrick Cao Lymphocytes/100 WBC (Bld) 30.2 % Normal 20.5-60.0 [facility] Comment on above: Performed By: #### P OCGLUC #### [facility] [address] [place] [address] Dr. Darrick Cao MANUAL DIFF REQ NO Normal [facility] Comment on above: Performed By: #### P OCGLUC #### [facility] [address] [place] [address] Dr. Darrick Cao MCH (RBC) [Entitic mass] 27.9 pg Normal 26.7-34.0 [facility] Comment on above: Performed By: #### P OCGLUC #### [facility] [address] [address] [address] Darrick Cao MCHC (RBC) [Mass/Vol] 32.2 g/dL Normal 29.9-35.2 [facility] Comment on above: Performed By: #### P OCGLUC #### [facility] [address] [place] [address] Dr. Darrick Cao MCV (RBC) [Entitic vol] 86.6 fL Normal 81.0-99.0 [facility] Comment on above: Performed By: #### P OCGLUC #### [facility] [address] [address] [address] Darrick Cao MONO # 0.6 103/ul Normal 0.3-0.8 [facility] Comment on above: Performed By: #### P OCGLUC #### [facility] [address] [place] [address] Dr. Darrick Cao Monocytes/100 WBC (Bld) 9.0 % Normal 1.7-12.0 [facility] Comment on above: Performed By: #### P OCGLUC #### [facility] [address] [place] [address] Dr. Darrick Cao NEUT # 3.7 103/ul Normal 1.4-6.5 [facility] Comment on above: Performed By: #### P OCGLUC #### [facility] [address] [place] [address] Dr. Darrick Cao Neutrophils/100 WBC (Bld) 57.8 % Normal 43.0-75.0 [facility] Comment on above: Performed By: #### P OCGLUC #### [facility] [address] [place] [address] Dr. Darrick Cao Platelet mean volume (Bld) [Entitic vol] 9.5 fL Normal 9.5-13.5 [facility] Comment on above: Performed By: #### P OCGLUC #### [facility] [address] [place] [address] Dr. Darrick Cao PLT 256 103/ul Normal 150-450 [facility] Comment on above: Performed By: #### P OCGLUC #### [facility] [address] [place] [address] Dr. Darrick Cao RBC 4.09 106/ul Critically low 4.20-5.40 [facility] Comment on above: Performed By: #### P OCGLUC #### [facility] [address] [place] [address] Dr. Darrick Cao WBC 6.3 103/ul Normal 4.0-11.0 [facility] Comment on above: Performed By: #### P OCGLUC #### [facility] [address] [place] [address] Dr. Darrick SOLOMON STAINon 04-24-2022 COMMENTS NO ORGANISMS OBSERVED Normal [facility] Comment on above: Performed By: #### C XWND #### [facility] [address] [address] [address] Darrick Cao DIPHTHEROIDS Normal [facility] Comment on above: Performed By: #### C XWND #### [facility] [address] [address] [address] Darrick Cao EPITHELIALS Normal [facility] Comment on above: Performed By: #### C XWND #### [facility] [address] [address] [address] Darrick Cao FUNGAL ELEMENTS Normal [facility] Comment on above: Performed By: #### C XWND #### [facility] [address] [place] [address] Dr. Darrick Cao GRAM NEG BACILLI Normal [facility] Comment on above: Performed By: #### C XWND #### [facility] [address] [address] [address] Darrick SOLOMON NEG DIPPLOCOCCI Normal [facility] Comment on above: Performed By: #### C XWND #### [facility] [address] [place] [address] Dr. Darrick SOLOMON POS BACILLI Normal [facility] Comment on above: Performed By: #### C XWND #### [facility] [address] [address] [address] Darrick Cao GRAM POSITIVE COCCI Normal [facility] Comment on above: Performed By: #### C XWND #### [facility] [address] [address] [address] Darrick Cao GRAM STAIN SOURCE Post irrigation left foot Normal [facility] Comment on above: Performed By: #### C XWND #### [facility] [address] [place] [address] Dr. Darrick Cao GS_DIPTH Normal [facility] Comment on above: Performed By: #### C XWND #### [facility] [address] [place] [address] Dr. Darrick Cao WBC NONE SEEN Normal [facility] Comment on above: Performed By: #### C XWND #### [facility] [address] [address] [address] Darrick Cao POINT OF CARE GLUCOSEon 04-01 Glucose [Mass/Vol] 132 mg/dL Critically high 74-106 [facility] Comment on above: Performed By: #### P OCGLUC #### [facility] [address] [address] [address] Darrick Cao Glucose [Mass/Vol] 105 mg/dL Normal 74-106 [facility] Comment on above: Performed By: #### P OCGLUC ####[facility] [address] [address]Dr. Darrick Cao PROF 14(COMP METB)on 022 Albumin [Mass/Vol] 2.9 g/dL Critically low 3.4-5.0 [facility] Comment on above: Performed By: #### P OCGLUC #### [facility] [address] [address] [address] Darrick Cao Albumin/Globulin [Mass ratio] 0.8 {ratio} Normal [facility] Comment on above: Performed By: #### P OCGLUC #### [facility] [address] [address] [address] Darrick Cao ALP [Catalytic activity/Vol] 122 U/L Critically high 46-116 [facility] Comment on above: Performed By: #### P OCGLUC #### [facility] [address] [address] [address] Darrick Cao ALT [Catalytic activity/Vol] 65 U/L Critically high 14-59 [facility] Comment on above: Performed By: #### P OCGLUC #### [facility] [address] [address] [address] Darrick Cao Anion gap [Moles/Vol] 12.2 mmol/L Normal [facility] Comment on above: Performed By: #### P OCGLUC #### [facility] [address] [address] [address] Darrick Cao AST [Catalytic activity/Vol] 28 U/L Normal 15-37 [facility] Comment on above: Performed By: #### P OCGLUC #### [facility] [address] [address] [address] Darrick Cao Bilirubin [Mass/Vol] 0.3 mg/dL Normal 0.2-1.0 [facility] Comment on above: Performed By: #### P OCGLUC #### [facility] [address] [address] [address] Darrick Cao Calcium [Mass/Vol] 8.5 mg/dL Normal 8.5-10.1 [facility] Comment on above: Performed By: #### P OCGLUC #### [facility] [address] [place] [address] Dr. Darrick Cao Chloride [Moles/Vol] 107 mmol/L Normal 98-107 [facility] Comment on above: Performed By: #### P OCGLUC #### [facility] [address] [place] [address] Dr. Darrick Cao CO2 [Moles/Vol] 25.9 mmol/L Normal 21.0-32.0 [facility] Comment on above: Performed By: #### P OCGLUC #### [facility] [address] [place] [address] Dr. Darrick Cao Creatinine [Mass/Vol] 0.87 mg/dL Normal 0.55-1.02 [facility] Comment on above: Performed By: #### P OCGLUC #### [facility] [address] [place] [address] Dr. Darrick Cao EGFR-AF CYPRIOT >60 Normal >=60 [facility] Comment on above: Performed By: #### P OCGLUC #### [facility] [address] [place] [address] Dr. Darrick Cao EGFR-NON AF CYPRIOT >60 Normal >=60 [facility] Comment on above: Performed By: #### P OCGLUC #### [facility] [address] [place] [address] Dr. Darrick Cao Globulin (S) [Mass/Vol] 3.8 g/dL Normal [facility] Comment on above: Performed By: #### P OCGLUC #### [facility] [address] [address] [address] Darrick Cao Glucose [Mass/Vol] 107 mg/dL Critically high 74-106 [facility] Comment on above: Performed By: #### P OCGLUC #### [facility] [address] [address] [address] Darrick Cao Potassium [Moles/Vol] 4.1 mmol/L Normal 3.5-5.1 [facility] Comment on above: Performed By: #### P OCGLUC #### [facility] [address] [place] [address] Dr. Darrick Cao Protein [Mass/Vol] 6.7 g/dL Normal 6.4-8.2 [facility] Comment on above: Performed By: #### P OCGLUC #### [facility] [address] [place] [address] Dr. Darrick Cao Sodium [Moles/Vol] 141 mmol/L Normal 136-145 [facility] Comment on above: Performed By: #### P OCGLUC #### [facility] [address] [place] [address] Dr. Darrick Cao Urea nitrogen [Mass/Vol] 10.0 mg/dL Normal 7.0-18.0 [facility] Comment on above: Performed By: #### P OCGLUC #### [facility] [address] [place] [address] Dr. Darrick Cao Urea nitrogen/Creatinine [Mass ratio] 11.5 mg/mg Normal [facility] Comment on above: Performed By: #### P OCGLUC #### [facility] [address] [place] [address] Dr. Darrick Cao VANCOMYCIN TROUGHon 04-24-20 VANCOMYCIN TROUGH 9.6 ug/ml Normal 5.0-20.0 [facility] Comment on above: Performed By: #### V ANCT #### [facility] [address] [place] [address] Dr. Darrick Cao CBC AUTO DIFFon 04-23-2022 BASO # 0.1 103/ul Normal 0.0-0.1 [facility] Comment on above: Performed By: #### C XWND #### [facility] [address] [place] [address] Dr. Darrick Cao Basophils/100 WBC (Bld) 0.6 % Normal 0.2-2.0 [facility] Comment on above: Performed By: #### C XWND #### [facility] [address] [place] [address] Dr. Darrick Cao EO # 0.1 103/ul Normal 0.0-0.7 [facility] Comment on above: Performed By: #### C XWND #### [facility] [address] [place] [address] Dr. Darrick Cao Eosinophils/100 WBC (Bld) 0.6 % Critically low 0.9-7.0 [facility] Comment on above: Performed By: #### C XWND #### [facility] [address] [place] [address] Dr. Darrick Cao Erythrocyte distribution width (RBC) [Ratio] 15.8 % Critically high 11.0-15.0 [facility] Comment on above: Performed By: #### C XWND #### [facility] [address] [place] [address] Dr. Darrick Cao Hematocrit (Bld) [Volume fraction] 34.0 % Critically low 36.0-48.0 [facility] Comment on above: Performed By: #### C XWND #### [facility] [address] [place] [address] Dr. Darrick Cao Hemoglobin (Bld) [Mass/Vol] 11.0 g/dL Critically low 12.0-16.0 [facility] Comment on above: Performed By: #### C XWND #### [facility] [address] [place] [address] Dr. Darrick Cao IG # 0.03 10e3/ul Normal 0.00-0.03 [facility] Comment on above: Performed By: #### C XWND #### [facility] [address] [address] [address] Darrick Cao IG % 0.4 % Normal 0.0-0.5 [facility] Comment on above: Performed By: #### C XWND #### [facility] [address] [address] [address] Darrick Cao LYMPH # 1.6 103/ul Normal 1.2-3.8 [facility] Comment on above: Performed By: #### C XWND #### [facility] [address] [place] [address] Dr. Darrick Cao Lymphocytes/100 WBC (Bld) 19.6 % Critically low 20.5-60.0 [facility] Comment on above: Performed By: #### C XWND #### [facility] [address] [place] [address] Dr. Darrick Cao MANUAL DIFF REQ NO Normal [facility] Comment on above: Performed By: #### C XWND #### [facility] [address] [place] [address] Dr. Darrick Cao MCH (RBC) [Entitic mass] 28.1 pg Normal 26.7-34.0 [facility] Comment on above: Performed By: #### C XWND #### [facility] [address] [place] [address] Dr. Darrick Cao MCHC (RBC) [Mass/Vol] 32.4 g/dL Normal 29.9-35.2 [facility] Comment on above: Performed By: #### C XWND #### [facility] [address] [place] [address] Dr. Darrick Cao MCV (RBC) [Entitic vol] 87.0 fL Normal 81.0-99.0 [facility] Comment on above: Performed By: #### C XWND #### [facility] [address] [place] [address] Dr. Darrick Cao MONO # 0.8 103/ul Normal 0.3-0.8 [facility] Comment on above: Performed By: #### C XWND #### [facility] [address] [address] [address] Darrick Cao Monocytes/100 WBC (Bld) 10.3 % Normal 1.7-12.0 [facility] Comment on above: Performed By: #### C XWND #### [facility] [address] [address] [address] Darrick Cao NEUT # 5.4 103/ul Normal 1.4-6.5 [facility] Comment on above: Performed By: #### C XWND #### [facility] [address] [place] [address] Dr. Darrick Cao Neutrophils/100 WBC (Bld) 68.5 % Normal 43.0-75.0 [facility] Comment on above: Performed By: #### C XWND #### [facility] [address] [place] [address] Dr. Darrick Cao Platelet mean volume (Bld) [Entitic vol] 9.9 fL Normal 9.5-13.5 [facility] Comment on above: Performed By: #### C XWND #### [facility] [address] [place] [address] Dr. Darrick Cao PLT 276 103/ul Normal 150-450 [facility] Comment on above: Performed By: #### C XWND #### [facility] [address] [place] [address] Dr. Darrick Cao RBC 3.91 106/ul Critically low 4.20-5.40 [facility] Comment on above: Performed By: #### C XWND #### [facility] [address] [place] [address] Dr. Darrick Cao WBC 7.9 103/ul Normal 4.0-11.0 [facility] Comment on above: Performed By: #### C XWND #### [facility] [address] [place] [address] Dr. Darrick Cao POINT OF CARE GLUCOSEon 07-2 Glucose [Mass/Vol] 138 mg/dL Critically high 74-106 [facility] Comment on above: Performed By: #### P OCGLUC ####[facility] [address] [place], [place] [address]BnDr. Darrick Cao Glucose [Mass/Vol] 151 mg/dL Critically high 74-106 [facility] Comment on above: Performed By: #### P OCGLUC #### [facility] [address] [address] [address] Darrick Cao Glucose [Mass/Vol] 141 mg/dL Critically high 74-106 [facility] Comment on above: Performed By: #### P OCGLUC ####[facility] [id number] [id number]. Darrick Cao PROF 14(COMP METB)on 022 Albumin [Mass/Vol] 3.0 g/dL Critically low 3.4-5.0 [facility] Comment on above: Performed By: #### C XWND #### [facility] [address] [place] [address] Dr. Darrick Cao Albumin/Globulin [Mass ratio] 0.9 {ratio} Normal [facility] Comment on above: Performed By: #### C XWND #### [facility] [address] [address] [address] Darrick Cao ALP [Catalytic activity/Vol] 128 U/L Critically high 46-116 [facility] Comment on above: Performed By: #### C XWND #### [facility] [address] [address] [address] Darrick Cao ALT [Catalytic activity/Vol] 71 U/L Critically high 14-59 [facility] Comment on above: Performed By: #### C XWND #### [facility] [address] [address] [address] Darrick Cao Anion gap [Moles/Vol] 13.1 mmol/L Normal [facility] Comment on above: Performed By: #### C XWND #### [facility] [address] [address] [address] Darrick Cao AST [Catalytic activity/Vol] 50 U/L Critically high 15-37 [facility] Comment on above: Performed By: #### C XWND #### [facility] [address] [address] [address] Darrick Cao Bilirubin [Mass/Vol] 0.3 mg/dL Normal 0.2-1.0 [facility] Comment on above: Performed By: #### C XWND #### [facility] [address] [address] [address] Darrick Cao Calcium [Mass/Vol] 8.2 mg/dL Critically low 8.5-10.[address] [facility] Comment on above: Performed By: #### C XWND #### [facility] [address] [address] [address] Darrick Cao Chloride [Moles/Vol] 110 mmol/L Critically high 98-107 [facility] Comment on above: Performed By: #### C XWND #### [facility] [address] [place] [address] Dr. Darrick Cao CO2 [Moles/Vol] 23.4 mmol/L Normal 21.0-32.0 [facility] Comment on above: Performed By: #### C XWND #### [facility] [address] [place] [address] Dr. Darrick Cao Creatinine [Mass/Vol] 0.96 mg/dL Normal 0.55-1.02 [facility] Comment on above: Performed By: #### C XWND #### [facility] [address] [address] [address] Darrick Cao EGFR-AF CYPRIOT >60 Normal >=60 [facility] Comment on above: Performed By: #### C XWND #### [facility] [address] [address] [address] Darrick Cao EGFR-NON AF CYPRIOT 59 mL/min/1.73m2 Critically low >=60 [facility] Comment on above: Performed By: #### C XWND #### [facility] [address] [place] [address] Dr. Darrick Cao Globulin (S) [Mass/Vol] 3.3 g/dL Normal [facility] Comment on above: Performed By: #### C XWND #### [facility] [address] [place] [address] Dr. Darrick Cao Glucose [Mass/Vol] 116 mg/dL Critically high 74-106 [facility] Comment on above: Performed By: #### C XWND #### [facility] [address] [place] [address] Dr. Darrick Cao Potassium [Moles/Vol] 4.5 mmol/L Normal 3.5-5.1 [facility] Comment on above: Performed By: #### C XWND #### [facility] [address] [place] [address] Dr. Darrick Cao Protein [Mass/Vol] 6.3 g/dL Critically low 6.4-8.[address] [facility] Comment on above: Performed By: #### C XWND #### [facility] [address] [place] [address] Dr. Darrick Cao Sodium [Moles/Vol] 142 mmol/L Normal 136-145 [facility] Comment on above: Performed By: #### C XWND #### [facility] [address] [place] [address] Dr. Darrick Cao Urea nitrogen [Mass/Vol] 14.0 mg/dL Normal 7.0-18.0 [facility] Comment on above: Performed By: #### C XWND #### [facility] [address] [place] [address] Dr. Darrick Cao Urea nitrogen/Creatinine [Mass ratio] 14.6 mg/mg Normal [facility] Comment on above: Performed By: #### C XWND #### [facility] [address] [place] [address] Dr. Darrick Cao CBC AUTO DIFFon 04-22-2022 BASO # 0.1 103/ul Normal 0.0-0.1 [facility] Comment on above: Performed By: #### C BC #### [facility] [address] [place] [address] Dr. Darrick Cao Basophils/100 WBC (Bld) 0.7 % Normal 0.2-2.0 [facility] Comment on above: Performed By: #### C BC #### [facility] [address] [place] [address] Dr. Darrick Cao EO # 0.1 103/ul Normal 0.0-0.7 [facility] Comment on above: Performed By: #### C BC #### [facility] [address] [place] [address] Dr. Darrick Cao Eosinophils/100 WBC (Bld) 0.5 % Critically low 0.9-7.0 [facility] Comment on above: Performed By: #### C BC #### [facility] [address] [place] [address] Dr. Darrick Cao Erythrocyte distribution width (RBC) [Ratio] 15.8 % Critically high 11.0-15.0 [facility] Comment on above: Performed By: #### C BC #### [facility] [address] [place] [address] Dr. Darrick Cao Hematocrit (Bld) [Volume fraction] 39.8 % Normal 36.0-48.0 [facility] Comment on above: Performed By: #### C BC #### [facility] [address] [place] [address] Dr. Darrick Cao Hemoglobin (Bld) [Mass/Vol] 12.9 g/dL Normal 12.0-16.0 [facility] Comment on above: Performed By: #### C BC #### [facility] [address] [place] [address] Dr. Darrick Cao IG # 0.03 10e3/ul Normal 0.00-0.03 [facility] Comment on above: Performed By: #### C BC #### [facility] [address] [place] [address] Dr. Darrick Cao IG % 0.3 % Normal 0.0-0.5 [facility] Comment on above: Performed By: #### C BC #### [facility] [address] [place] [address] Dr. Darrick Cao LYMPH # 1.6 103/ul Normal 1.2-3.8 [facility] Comment on above: Performed By: #### C BC #### [facility] [address] [place] [address] Dr. Darrick Cao Lymphocytes/100 WBC (Bld) 16.0 % Critically low 20.5-60.0 [facility] Comment on above: Performed By: #### C BC #### [facility] [address] [place] [address] Dr. Darrick Cao MANUAL DIFF REQ NO Normal [facility] Comment on above: Performed By: #### C BC #### [facility] [address] [place] [address] Dr. Darrick Cao MCH (RBC) [Entitic mass] 28.2 pg Normal 26.7-34.0 [facility] Comment on above: Performed By: #### C BC #### [facility] [address] [place] [address] Dr. Darrick Cao MCHC (RBC) [Mass/Vol] 32.4 g/dL Normal 29.9-35.2 [facility] Comment on above: Performed By: #### C BC #### [facility] [address] [place] [address] Dr. Darrick Cao MCV (RBC) [Entitic vol] 86.9 fL Normal 81.0-99.0 [facility] Comment on above: Performed By: #### C BC #### [facility] [address] [place] [address] Dr. Darrick Cao MONO # 0.9 103/ul Critically high 0.3-0.8 [facility] Comment on above: Performed By: #### C BC #### [facility] [address] [place] [address] Dr. Darrick Cao Monocytes/100 WBC (Bld) 8.7 % Normal 1.7-12.0 [facility] Comment on above: Performed By: #### C BC #### [facility] [address] [place] [address] Dr. Darrick Cao NEUT # 7.5 103/ul Critically high 1.4-6.5 [facility] Comment on above: Performed By: #### C BC #### [facility] [address] [address] [address] Darrick Cao Neutrophils/100 WBC (Bld) 73.8 % Normal 43.0-75.0 [facility] Comment on above: Performed By: #### C BC #### [facility] [address] [address] [address] Darrick Cao Platelet mean volume (Bld) [Entitic vol] 9.3 fL Critically low 9.5-13.5 [facility] Comment on above: Performed By: #### C BC #### [facility] [address] [place] [address] Dr. Darrick Cao PLT 345 103/ul Normal 150-450 [facility] Comment on above: Performed By: #### C BC #### [facility] [address] [address] [address] Darrick Cao RBC 4.58 106/ul Normal 4.20-5.40 [facility] Comment on above: Performed By: #### C BC #### [facility] [address] [address] [address] Darrick Cao WBC 10.1 103/ul Normal 4.0-11.0 [facility] Comment on above: Performed By: #### C BC #### [facility] [address] [address] [address] Darrick Cao CRPon 04-22-2022 CRP 5.2 mg/dL Critically high <=1.0 [facility] Comment on above: Performed By: #### B MP, CRP ####[facility] [address] [address]Dr. Darrick Cao CULTURE BLOODon 04-22-2022 Microscopic examination of blood, culture Culture Observations: NO GROWTH AT 5 DAYS. Normal [facility] Comment on above: Performed By: #### B LDCX2 #### [facility] [address] [address] [address] Darrick Cao Microscopic examination of blood, culture Culture Observations: NO GROWTH AT 5 DAYS. Normal [facility] Comment on above: Performed By: #### B LDCX1 #### [facility] [address] [address] [address] Darrick Cao Covid-19 PCR ([facility])on 04-01 SARS-CoV-2 (COVID-19) RNA ALEKSANDR+probe Ql (Unsp spec) Not detected Normal NOT DETECTED [facility] Comment on above: Result Comment: When [...] for this test is supported by the [place] of Health and Human Service's declaration that [...] used). Performed By: #### P OCGLUC #### [facility] [address] [place] [address] Dr. Darrick Cao LACTATE/LACTIC ACIDon 2021 Lactate [Moles/Vol] 1.3 mmol/L Normal 0.4-1.9 [facility] Comment on above: Performed By: #### P OCGLUC #### [facility] [address] [place] [address] Dr. Darrick Cao POINT OF CARE GLUCOSEon 04-01 Glucose [Mass/Vol] 96 mg/dL Normal 74-106 [facility] Comment on above: Performed By: #### P OCGLUC #### [facility] [address] [place] [address] Dr. Darrick Cao PROF CHEM 8 (BAS METB)on Anion gap [Moles/Vol] 12.3 mmol/L Normal [facility] Comment on above: Performed By: #### B MP, CRP ####[facility] [address] [address]Dr. Darrick Cao Calcium [Mass/Vol] 9.2 mg/dL Normal 8.5-10.1 [facility] Comment on above: Performed By: #### B MP, CRP ####[facility] [address] [address]Dr. Darrick Cao Chloride [Moles/Vol] 104 mmol/L Normal 98-107 [facility] Comment on above: Performed By: #### B MP, CRP ####[facility] [address] [place], [place] [address]Dr. Darrick Cao CO2 [Moles/Vol] 26.4 mmol/L Normal 21.0-32.0 [facility] Comment on above: Performed By: #### B MP, CRP ####[facility] [address] [place], [place] [address]Dr. Darrick Cao Creatinine [Mass/Vol] 1.19 mg/dL Critically high 0.55-1.02 [facility] Comment on above: Performed By: #### B MP, CRP ####[facility] [address] [place], [place] [address]Dr. Darrick Cao EGFR-AF CYPRIOT 56 mL/min/1.73m2 Critically low >=60 [facility] Comment on above: Performed By: #### B MP, CRP ####[facility] [address] [place], [place] [address]Dr. Darrick Cao EGFR-NON AF CYPRIOT 46 mL/min/1.73m2 Critically low >=60 [facility] Comment on above: Performed By: #### B MP, CRP ####[facility] [address] [place], [place] [address]Dr. Darrick Cao Glucose [Mass/Vol] 124 mg/dL Critically high 74-106 [facility] Comment on above: Performed By: #### B MP, CRP ####[facility] [address] [place], [place] [address]Dr. Darrick Cao Potassium [Moles/Vol] 4.7 mmol/L Normal 3.5-5.1 [facility] Comment on above: Performed By: #### B MP, CRP ####[facility] [address] [place], [place] [address]Qc. Darrick Cao Sodium [Moles/Vol] 138 mmol/L Normal 136-145 [facility] Comment on above: Performed By: #### B MP, CRP ####[facility] [address] [id number]. Darrick Cao Urea nitrogen [Mass/Vol] 21.0 mg/dL Critically high 7.0-18.0 [facility] Comment on above: Performed By: #### B MP, CRP ####[facility] [address] [address]Dr. Darrick Cao Urea nitrogen/Creatinine [Mass ratio] 17.6 mg/mg Normal [facility] Comment on above: Performed By: #### B MP, CRP ####[facility] [address] [id number]. Darrick Cao SED RATE [facility] 2021 SED RATE 64 mm/hr Critically high <=30 [facility] Comment on above: Performed By: #### P OCGLUC #### [facility] [address] [address] ANKLE LT WO [...] by: SHAWNEE KELLY Date: 2022-03-11 10:18 Normal [facility] COVID Quick Testingon 2020 Result Negative [employer] Other Operative Reporton Operative Report MR#: [id number] S [facility] Pt. Name: Nicol Knowles Room #: 0C Discharge Date: Birthdate: 1960 OPERATIVE REPORT DATE OF SURGERY: 12/16/2020 SURGEON: David Lr M.D. PREOPERATIVE DIAGNOSIS: Trigger digits, right long finger and thumb. POSTOPERATIVE DIAGNOSIS: Trigger digits, right long finger and thumb. PROCEDURE: A1 leigha release, right long finger and thumb. EXPENSE CLERK: Hay Mast M.D. ANESTHESIA: MAC. INDICATION FOR [...] Xeroform gauze, 4x4 fluffs, Kaela, and an Jose Luis bandage was applied. The tourniquet was released and the drapes were removed. All sponge and needle counts were correct at time of closure. She was brought to the recovery area in stable condition, having tolerated the procedure well. Electronically Signed by: David Lr M.D. 12/19/2020 08:41 A David Lr M.D. Date Dict: 12/16/2020/07:48 A/David Lr M.D. Date Trans: 12/16/2020 09:13 A/braxton [id number] cc: Waqas Pierce M.D. [address] [place] [id number] Normal [facility] POC GLUCOSE LABon 12-16-2020 Glucose [Mass/Vol] 103 mg/dL High 70-100 [facility] Comment on above: Performed By: #### 8 5499 #### [address] Vital Signs Date Time Vital Sign Value Performing Clinician Facility 06-19-2025 08:28-0400 Diastolic blood pressure 79 mm[Hg] Waqas Pierce MD Work Phone: [facility] 06-19-2025 08:28-0400 Heart rate 58 /min Waqas Pierce MD Work Phone: [phone](086)[phone] [place] [address] 06-19-2025 08:28-0400 Respiratory rate 16 /min Waqas Pierce MD Work Phone: [phone] [place] [address] 06-19-2025 08:28-0400 SaO2% (BldA) [Mass fraction] 98 % Waqas Pierce MD Work Phone: [facility] 06-19-2025 08:28-0400 Systolic blood pressure 121 mm[Hg] Waqas Pierce MD Work Phone: [facility] 06-19-2025 07:58-0400 Inhaled oxygen flow rate 3 L/min Waqas Pierce MD Work Phone: [facility] 06-19-2025 06:20-0400 Body height 170.18 cm Waqas Pierce MD Work Phone: [facility] 06-19-2025 06:20-0400 Body temperature 97.9 [degF] Waqsa Pierce MD Work Phone: [facility] 06-19-2025 06:20-0400 Body weight 114.3 kg Waqas Pierce MD Work Phone: [facility] 06-16-2025 11:21-0400 Body height 170.18 cm Waqas Pierce MD Work Phone: [facility] 06-16-2025 11:21-0400 Body mass index (BMI) [Ratio] 39.6 kg/m2 Waqas Pierce MD Work Phone: [facility] 06-16-2025 11:21-0400 Body weight 114.75 kg Waqas Pierce MD Work Phone: [facility] 06-16-2025 11:21-0400 Diastolic blood pressure 63 mm[Hg] Waqas Pierce MD Work Phone: [facility] 06-16-2025 11:21-0400 Heart rate 112 /min Waqas Pierce MD Work Phone: [facility] 06-16-2025 11:21-0400 Systolic blood pressure 98 mm[Hg] Waqas Pierce MD Work Phone: [facility] 05-06-2025 11:16-0400 Body height 170.2 cm Jun Lawson MD Work Phone: [facility] 05-06-2025 11:16-0400 Body mass index (BMI) [Ratio] 40.72 kg/m2 Jun Lawson MD Work Phone: [facility] [employer] [facility] 05-06-2025 11:16-0400 Body weight 117.94 kg Jun Lawson MD Work Phone: [facility] [employer] [facility] 05-06-2025 11:16-0400 Diastolic blood pressure 85 mm[Hg] Jun Lawson MD Work Phone: [facility] [employer] [facility] 05-06-2025 11:16-0400 Heart rate 77 /min Jun Lawson MD Work Phone: [facility] [employer] [facility] 05-06-2025 11:16-0400 Systolic blood pressure 125 mm[Hg] Jun Lawson MD Work Phone: [facility] [employer] [facility] 04-07-2025 11:34-0400 Body height 170.18 cm Waqas Pierce MD Work Phone: [facility] 04-07-2025 11:34-0400 Body mass index (BMI) [Ratio] 41.3 kg/m2 Waqas Pierce MD Work Phone: [facility] 04-07-2025 11:34-0400 Body weight 119.91 kg Waqas Pierce MD Work Phone: [facility] 04-07-2025 11:34-0400 Diastolic blood pressure 84 mm[Hg] Waqas Pierce MD Work Phone: [facility] 04-07-2025 11:34-0400 Heart rate 112 /min Waqas Pierce MD Work Phone: [facility] 04-07-2025 11:34-0400 Systolic blood pressure 123 mm[Hg] Waqas Pierce MD Work Phone: [facility] 03-29-2025 10:40-0400 Respiratory rate 18 /min Paulino Hughes MD Work Phone: [facility] [employer] 03-29-2025 07:10-0400 Body temperature 97.7 [degF] Paulino Hughes MD Work Phone: [facility] [place] [employer] 03-29-2025 07:10-0400 Diastolic blood pressure 97 mm[Hg] Paulino Hughes MD Work Phone: [employer] 03-29-2025 07:10-0400 Heart rate 86 /min Paulino Hughes MD Work Phone: [facility] [place] [employer] 03-29-2025 07:10-0400 SaO2% (BldA) [Mass fraction] 99 % Paulino Hughes MD Work Phone: [employer] 03-29-2025 07:10-0400 Systolic blood pressure 153 mm[Hg] Paulino Hughes MD Work Phone: [employer] 03-24-2025 17:45-0400 Body height 170.2 cm Paulino Hughes MD Work Phone: [facility] [place] [employer] 03-24-2025 17:45-0400 Body mass index (BMI) [Ratio] 44.99 kg/m2 Paulino Hughes MD Work Phone: [employer] 03-24-2025 17:45-0400 Body weight 130.3 kg Paulino Hughes MD Work Phone: [facility] 03-11-2025 09:44-0400 Body height 170.18 cm Waqas Pierce MD Work Phone: [facility] 03-11-2025 09:44-0400 Body mass index (BMI) [Ratio] 43.9 kg/m2 Waqas Pierce MD Work Phone: [facility] 03-11-2025 09:44-0400 Body weight 127.45 kg Waqas Pierce MD Work Phone: [facility] 03-05-2025 13:54-0400 Body height 170.18 cm Waqas Pierce MD Work Phone: [facility] 03-05-2025 13:54-0400 Body mass index (BMI) [Ratio] 44.1 kg/m2 Waqas Pierce MD Work Phone: [facility] 03-05-2025 13:54-0400 Body weight 127.9 kg Waqas Pierce MD Work Phone: [facility] 03-05-2025 13:54-0400 Diastolic blood pressure 73 mm[Hg] Waqas Pierce MD Work Phone: [facility] 03-05-2025 13:54-0400 Systolic blood pressure 120 mm[Hg] Waqas Pierce MD Work Phone: [facility] 02-09-2025 13:14-0400 Body height 171.45 cm Waqas Pierce MD Work Phone: [facility] 02-09-2025 13:14-0400 Body mass index (BMI) [Ratio] 43.6 kg/m2 Waqas Pierce MD Work Phone: [facility] 02-09-2025 13:14-0400 Body weight 128.13 kg Waqas Pierce MD Work Phone: [facility] 02-09-2025 13:14-0400 Diastolic blood pressure 82 mm[Hg] Waqas Pierce MD Work Phone: [facility] 02-09-2025 13:14-0400 Heart rate 90 /min Waqas Pierce MD Work Phone: [facility] 02-09-2025 13:14-0400 Systolic blood pressure 119 mm[Hg] Waqas Pierce MD Work Phone: [facility] 02-03-2025 10:18-0400 Body height 171.45 cm Waqas Pierce MD Work Phone: [facility] 02-03-2025 10:18-0400 Body mass index (BMI) [Ratio] 42.9 kg/m2 Waqas Pierce MD Work Phone: [facility] 02-03-2025 10:18-0400 Body weight 126.09 kg Waqas Pierce MD Work Phone: [facility] 02-03-2025 10:18-0400 Diastolic blood pressure 79 mm[Hg] Waqas Pierce MD Work Phone: [facility] 02-03-2025 10:18-0400 Heart rate 83 /min Waqas Pierce MD Work Phone: [facility] 02-03-2025 10:18-0400 Systolic blood pressure 127 mm[Hg] Waqas Pierce MD Work Phone: [facility] 01-28-2025 13:54-0400 Body height 170.2 cm Jun Lawson MD Work Phone: [facility] 01-28-2025 13:54-0400 Body mass index (BMI) [Ratio] 44.17 kg/m2 Jun Lawson MD Work Phone: [facility] 01-28-2025 13:54-0400 Body weight 127.91 kg Jun Lawson MD Work Phone: [facility] 01-28-2025 13:54-0400 Diastolic blood pressure 93 mm[Hg] Jun Lawson MD Work Phone: [facility] 01-28-2025 13:54-0400 Heart rate 82 /min Jun Lawson MD Work Phone: [facility] 01-28-2025 13:54-0400 Systolic blood pressure 143 mm[Hg] Jun Lawson MD Work Phone: [facility] 12-19-2024 09:28-0400 Body height 172.09 cm Waqas Pierce MD Work Phone: [facility] 12-19-2024 09:28-0400 Body mass index (BMI) [Ratio] 43.8 kg/m2 Waqas Pierce MD Work Phone: [facility] 12-19-2024 09:28-0400 Body weight 129.72 kg Waqas Pierce MD Work Phone: [facility] 12-19-2024 09:28-0400 Diastolic blood pressure 85 mm[Hg] Waqas Pierce MD Work Phone: [facility] 12-19-2024 09:28-0400 Heart rate 80 /min Waqas Pierce MD Work Phone: [facility] 12-19-2024 09:28-0400 Systolic blood pressure 143 mm[Hg] Waqas Pierce MD Work Phone: [facility] 12-15-2024 12:36-0400 Body height 172.09 cm Waqas Pierce MD Work Phone: [facility] 12-15-2024 11:13-0400 Body temperature 98 [degF] Waqas Pierce MD Work Phone: [facility] 12-15-2024 11:13-0400 Diastolic blood pressure 80 mm[Hg] Waqas Pierce MD Work Phone: [facility] 12-15-2024 11:13-0400 Heart rate 67 /min Waqas Pierce MD Work Phone: [facility] 12-15-2024 11:13-0400 Respiratory rate 16 /min Waqas Pierce MD Work Phone: [facility] 12-15-2024 11:13-0400 SaO2% (BldA) [Mass fraction] 95 % Waqas Pierce MD Work Phone: [facility] 12-15-2024 11:13-0400 Systolic blood pressure 133 mm[Hg] Waqas Pierce MD Work Phone: [facility] 12-15-2024 04:33-0400 Body weight 131.6 kg Waqas Pierce MD Work Phone: [facility] 12-13-2024 00:00-0400 Inhaled oxygen flow rate 4 L/min Waqas Pierce MD Work Phone: [facility] 12-09-2024 11:36-0400 Body height 171.45 cm Waqas Pierce MD Work Phone: [facility] 12-09-2024 11:36-0400 Body mass index (BMI) [Ratio] 45 kg/m2 Waqas Pierce MD Work Phone: [facility] 12-09-2024 11:36-0400 Body weight 132.44 kg Waqas Pierce MD Work Phone: [facility] 12-09-2024 11:36-0400 Diastolic blood pressure 80 mm[Hg] Waqas Pierce MD Work Phone: [facility] 12-09-2024 11:36-0400 Heart rate 80 /min Waqas Pierce MD Work Phone: [facility] 12-09-2024 11:36-0400 Systolic blood pressure 139 mm[Hg] Waqas Pierce MD Work Phone: [facility] 12-01-2024 11:21-0500 Body mass index (BMI) [Ratio] 45.42 kg/m2 Uday Nils DO Work Phone: [facility] 12-01-2024 11:21-0500 Body weight 131.54 kg Uday Nils DO Work Phone: [facility] 12-01-2024 11:21-0500 Diastolic blood pressure 88 mm[Hg] Uday Nils DO Work Phone: [facility] 12-01-2024 11:21-0500 Systolic blood pressure 128 mm[Hg] Uday Nils DO Work Phone: [facility] 11-04-2024 10:45-0500 Body height 171.45 cm Waqas Pierce MD Work Phone: [facility] 11-04-2024 10:45-0500 Body mass index (BMI) [Ratio] 42.9 kg/m2 Waqas Pierce MD Work Phone: [facility] 11-04-2024 10:45-0500 Body weight 126.09 kg Waqas Pierce MD Work Phone: [facility] 11-04-2024 10:45-0500 Diastolic blood pressure 69 mm[Hg] Waqas Pierce MD Work Phone: [facility] 11-04-2024 10:45-0500 Heart rate 70 /min Waqas Pierce MD Work Phone: [facility] 11-04-2024 10:45-0500 Systolic blood pressure 108 mm[Hg] Waqas Pierce MD Work Phone: [facility] 10-28-2024 10:09-0500 Body height 170.18 cm Waqas Pierce MD Work Phone: [facility] 10-28-2024 10:09-0500 Body mass index (BMI) [Ratio] 44.6 kg/m2 Waqas Pierce MD Work Phone: [facility] 10-28-2024 10:09-0500 Body weight 129.27 kg Waqas Pierce MD Work Phone: [facility] 10-28-2024 10:09-0500 Diastolic blood pressure 73 mm[Hg] Waqas Pierce MD Work Phone: [facility] 10-28-2024 10:09-0500 Heart rate 98 /min Waqas Pierce MD Work Phone: [facility] 10-28-2024 10:09-0500 Systolic blood pressure 108 mm[Hg] Waqas Pierce MD Work Phone: [facility] 10-07-2024 14:15-0500 Diastolic blood pressure 80 mm[Hg] Waqas Pierce MD Work Phone: [facility] 10-07-2024 14:15-0500 Heart rate 84 /min Waqas Pierce MD Work Phone: [facility] 10-07-2024 14:15-0500 Respiratory rate 16 /min Waqas Pierce MD Work Phone: [facility] 10-07-2024 14:15-0500 SaO2% (BldA) [Mass fraction] 97 % Waqas Pierce MD Work Phone: [facility] 10-07-2024 14:15-0500 Systolic blood pressure 122 mm[Hg] Waqas Pierce MD Work Phone: [facility] 10-07-2024 12:39-0500 Body height 170.18 cm Waqas Pierce MD Work Phone: [facility] 10-07-2024 12:39-0500 Body weight 127.91 kg Waqas Pierce MD Work Phone: [facility] 09-29-2024 13:50-0500 Body height 170.18 cm Waqas Pierce MD Work Phone: [facility] 09-29-2024 13:50-0500 Body mass index (BMI) [Ratio] 44.3 kg/m2 Waqas Pierce MD Work Phone: [facility] 09-29-2024 13:50-0500 Body temperature 98 [degF] Waqas Pierce MD Work Phone: [facility] 09-29-2024 13:50-0500 Body weight 128.36 kg Waqas Pierce MD Work Phone: [facility] 09-29-2024 13:50-0500 Diastolic blood pressure 85 mm[Hg] Waqas Pierce MD Work Phone: [facility] 09-29-2024 13:50-0500 Heart rate 105 /min Waqas Pierce MD Work Phone: [facility] 09-29-2024 13:50-0500 SaO2% (BldA) [Mass fraction] 93 % Waqas Pierce MD Work Phone: [facility] 09-29-2024 13:50-0500 Systolic blood pressure 111 mm[Hg] Waqas Pierce MD Work Phone: [facility] 08-25-2024 14:08-0500 Body height 170.18 cm Waqas Pierce MD Work Phone: [facility] 08-25-2024 14:08-0500 Body mass index (BMI) [Ratio] 44.4 kg/m2 Waqas Pierce MD Work Phone: [facility] 08-25-2024 14:08-0500 Body temperature 97.4 [degF] Waqas Pierce MD Work Phone: [facility] 08-25-2024 14:08-0500 Body weight 128.82 kg Waqas Pierce MD Work Phone: [facility] 08-25-2024 14:08-0500 Diastolic blood pressure 59 mm[Hg] Waqas Pierce MD Work Phone: [facility] 08-25-2024 14:08-0500 Heart rate 88 /min Waqas Pierce MD Work Phone: [facility] 08-25-2024 14:08-0500 Systolic blood pressure 91 mm[Hg] Waqas Pierce MD Work Phone: [facility] 08-04-2024 10:48-0500 Body height 170.[address] [facility] 08-04-2024 10:48-0500 Body mass index (BMI) [Ratio] 44.8 kg/m2 [facility] 08-04-2024 10:48-0500 Body weight 129.[address] [facility] 08-04-2024 10:48-0500 Diastolic blood pressure 84 mm[Hg] [facility] 08-04-2024 10:48-0500 Heart rate 82 /min [facility] 08-04-2024 10:48-0500 Systolic blood pressure 128 mm[Hg] [facility] 06-19-2024 12:54-0400 Body mass index (BMI) [Ratio] 47.9 kg/m2 [facility] 06-19-2024 11:16-0400 Body height 170.[address] [facility] 06-19-2024 11:16-0400 Body weight [address] [facility] 06-16-2024 09:58-0400 Body height 170.[address] [facility] 06-16-2024 09:58-0400 Body mass index (BMI) [Ratio] 44.9 kg/m2 [facility] 06-16-2024 09:58-0400 Body weight 130.[address] [facility] 06-16-2024 09:58-0400 Diastolic blood pressure 75 mm[Hg] [facility] 06-16-2024 09:58-0400 Heart rate 83 /min [facility] 06-16-2024 09:58-0400 Systolic blood pressure 114 mm[Hg] [facility] 05-23-2024 10:46-0400 Body mass index (BMI) [Ratio] 47.9 kg/m2 [facility] 05-23-2024 09:49-0400 Body height 170.[address] [facility] 05-23-2024 09:49-0400 Body weight 127.[address] [facility] 02-21-2024 10:03-0400 Body height 170.18 cm MD Waqas Pierce Work Phone: [facility] 02-21-2024 10:03-0400 Body mass index (BMI) [Ratio] 42.3 kg/m2 MD Waqas Pierce Work Phone: [facility] 02-21-2024 10:03-0400 Body weight 122.49 kg MD Waqas Pierce Work Phone: [facility] 02-21-2024 10:03-0400 Diastolic blood pressure 88 mm[Hg] MD Waqas Pierce Work Phone: [facility] 02-21-2024 10:03-0400 Heart rate 85 /min MD Waqas Pierce Work Phone: [facility] 02-21-2024 10:03-0400 Respiratory rate 18 /min MD Waqas Pierce Work Phone: [facility] 02-21-2024 10:03-0400 SaO2% (BldA) [Mass fraction] 97 % MD Waqas Pierce Work Phone: [facility] 02-21-2024 10:03-0400 Systolic blood pressure 142 mm[Hg] MD Waqas Pierce Work Phone: [facility] 01-15-2024 10:50-0400 Body height 170.[address] [facility] 01-15-2024 10:50-0400 Body mass index (BMI) [Ratio] 47.9 kg/m2 [facility] 01-15-2024 10:50-0400 Body weight 138.[address] [facility] 01-10-2024 09:49-0400 Body mass index (BMI) [Ratio] 47.9 kg/m2 MD Waqas Pierce Work Phone: [facility] 01-10-2024 08:37-0400 Body height 170.18 cm MD Waqas Pierce Work Phone: [facility] 01-10-2024 08:37-0400 Body weight 117.02 kg MD Waqas Pierce Work Phone: [facility] 01-03-2024 10:52-0400 Body height 170.18 cm MD Waqas Pierce Work Phone: [facility] 01-03-2024 10:52-0400 Body mass index (BMI) [Ratio] 39.8 kg/m2 MD Waqas Pierce Work Phone: [facility] 01-03-2024 10:52-0400 Body weight 115.41 kg MD Waqas Pierce Work Phone: [facility] 01-03-2024 10:52-0400 Diastolic blood pressure 89 mm[Hg] MD Waqas Pierce Work Phone: [facility] 01-03-2024 10:52-0400 Heart rate 87 /min MD Waqas Pierce Work Phone: [facility] 01-03-2024 10:52-0400 Respiratory rate 18 /min MD Waqas Pierce Work Phone: [facility] 01-03-2024 10:52-0400 SaO2% (BldA) [Mass fraction] 99 % MD Waqas Pierce Work Phone: [facility] 01-03-2024 10:52-0400 Systolic blood pressure 128 mm[Hg] MD Waqas Pierce Work Phone: [facility] 12-10-2023 11:39-0400 Body mass index (BMI) [Ratio] 47.9 kg/m2 MD Waqas Pierce Work Phone: [facility] 12-10-2023 10:57-0400 Body height 170.18 cm MD Waqas Pierce Work Phone: [facility] 12-10-2023 10:57-0400 Body weight 117.02 kg MD Waqas Pierce Work Phone: [facility] 11-22-2023 10:59-0500 Body height 170.[address] [facility] 11-22-2023 10:59-0500 Body mass index (BMI) [Ratio] 41.1 kg/m2 [facility] 11-22-2023 10:59-0500 Body weight 119.[address] [facility] 11-22-2023 10:59-0500 Diastolic blood pressure 84 mm[Hg] [facility] 11-22-2023 10:59-0500 Heart rate 72 /min [facility] 11-22-2023 10:59-0500 Respiratory rate 18 /min [facility] 11-22-2023 10:59-0500 SaO2% (BldA) [Mass fraction] 99 % [facility] 11-22-2023 10:59-0500 Systolic blood pressure 132 mm[Hg] [facility] 11-21-2023 09:48-0500 Body height 170.[address] [facility] 11-21-2023 09:48-0500 Body mass index (BMI) [Ratio] 40.7 kg/m2 [facility] 11-21-2023 09:48-0500 Body temperature 98.2 [degF] [facility] 11-21-2023 09:48-0500 Body weight 117.[address] [facility] 11-21-2023 09:48-0500 Diastolic blood pressure 82 mm[Hg] [facility] 11-21-2023 09:48-0500 Heart rate 105 /min [facility] 11-21-2023 09:48-0500 Systolic blood pressure 131 mm[Hg] [facility] 11-19-2023 09:52-0500 Body height 170.[address] [facility] 11-19-2023 09:52-0500 Body mass index (BMI) [Ratio] 40.8 kg/m2 [facility] 11-19-2023 09:52-0500 Body weight 118.[address] [facility] 11-01-2023 11:15-0500 Body height 170.18 cm Waqas Pierce Other [facility] 11-01-2023 11:15-0500 Body mass index (BMI) [Ratio] 40.75 kg/m2 Waqas Pierce Other [employer] Other 11-01-2023 11:15-0500 Body weight 118.03 kg Waqas Pierce Other [employer] Other 11-01-2023 11:15-0500 Body weight 118.[address] [facility] 11-01-2023 11:15-0500 Diastolic blood pressure 87 mm[Hg] Waqas Pierce Other [facility] 11-01-2023 11:15-0500 Systolic blood pressure 127 mm[Hg] Waqas Pierce Other [facility] 10-15-2023 10:00-0500 Body height 170.18 cm Grecia Fitt Other [facility] 10-15-2023 10:00-0500 Body mass index (BMI) [Ratio] 40.08 kg/m2 Grecia Fitt Other [employer] Other 10-15-2023 10:00-0500 Body weight 116.08 kg Grecia Fitt Other [employer] Other 10-15-2023 10:00-0500 Body weight 116.[address] [facility] 09-18-2023 11:00-0500 Body height 170.18 cm Rolando Castellanos Other [facility] 09-18-2023 11:00-0500 Body mass index (BMI) [Ratio] 40.45 kg/m2 Rolando Castellanos Other [employer] Other 09-18-2023 11:00-0500 Body weight 117.16 kg Rolando Castellanos Other [facility] 09-18-2023 11:00-0500 Diastolic blood pressure 80 mm[Hg] Rolando Castellanos Other [facility] 09-18-2023 11:00-0500 Respiratory rate 18 /min Rolando Castellanos Other [employer] Other 09-18-2023 11:00-0500 SaO2% (BldA) [Mass fraction] 98 % Rolando Castellanos Other [facility] [employer] Other 09-18-2023 11:00-0500 Systolic blood pressure 115 mm[Hg] Rolando Castellanos Other [facility] 09-17-2023 10:45-0500 Body height 170.18 cm Grecia Fitt Other [facility] 09-17-2023 10:45-0500 Body mass index (BMI) [Ratio] 40.65 kg/m2 Grecia Fitt Other [facility] [employer] Other 09-17-2023 10:45-0500 Body weight 117.75 kg Grecia Fitt Other [facility] 09-03-2023 12:45-0500 Diastolic blood pressure 60 mm[Hg] MD Waqas Pierce Work Phone: [facility] 09-03-2023 12:45-0500 Heart rate 70 /min MD Waqas Pierce Work Phone: [facility] 09-03-2023 12:45-0500 Inhaled oxygen flow rate 1 L/min MD Waqas Pierce Work Phone: [facility] 09-03-2023 12:45-0500 Respiratory rate 16 /min MD Waqas Pierce Work Phone: [facility] 09-03-2023 12:45-0500 SaO2% (BldA) [Mass fraction] 97 % MD Waqas Pierce Work Phone: [facility] 09-03-2023 12:45-0500 Systolic blood pressure 132 mm[Hg] MD Waqas Pierce Work Phone: [facility] 09-03-2023 10:21-0500 Body temperature 98.4 [degF] MD Waqas Pierce Work Phone: [facility] 09-03-2023 07:14-0500 Body height 172.72 cm MD Waqas Pierce Work Phone: [facility] 09-03-2023 07:14-0500 Body mass index (BMI) [Ratio] 39.5 kg/m2 MD Waqas Pierce Work Phone: [facility] 09-03-2023 07:14-0500 Body weight 118 kg MD Waqas Pierce Work Phone: [facility] 08-21-2023 14:30-0500 Body height 170.18 cm Waqas Pierce Other [facility] [employer] Other 08-21-2023 14:30-0500 Body mass index (BMI) [Ratio] 39.46 kg/m2 Waqas Pierce Other [employer] Other 08-21-2023 14:30-0500 Body weight 114.31 kg Waqas Pierce Other [employer] Other 08-21-2023 14:30-0500 Diastolic blood pressure 84 mm[Hg] Waqas Pierce Other [employer] Other 08-21-2023 14:30-0500 Systolic blood pressure 138 mm[Hg] Waqas Pierce Other [employer] Other 08-13-2023 10:45-0500 Body height 170.18 cm Grecia Fitt Other [employer] Other 08-13-2023 10:45-0500 Body mass index (BMI) [Ratio] 41.22 kg/m2 Grecia Fitt Other [employer] Other 08-13-2023 10:45-0500 Body weight 119.39 kg Grecia Fitt Other [employer] Other 07-26-2023 11:30-0400 Body height 170.18 cm Rolando Reyesdiff Other [employer] Other 07-26-2023 11:30-0400 Body mass index (BMI) [Ratio] 41.86 kg/m2 Rolando Reyesdiff Other [employer] Other 07-26-2023 11:30-0400 Body weight 121.25 kg Rolando Reyesdiff Other [employer] Other 07-26-2023 11:30-0400 Diastolic blood pressure 77 mm[Hg] Rolando Reyesdiff Other [employer] Other 07-26-2023 11:30-0400 Respiratory rate 18 /min Rolando Reyesdiff Other [employer] Other 07-26-2023 11:30-0400 SaO2% (BldA) [Mass fraction] 98 % Rolando Reyesdiff Other [employer] Other 07-26-2023 11:30-0400 Systolic blood pressure 121 mm[Hg] Rolando Reyesdiff Other [employer] Other 07-23-2023 10:45-0400 Body height 170.18 cm Grecia Fitt Other [employer] Other 07-23-2023 10:45-0400 Body mass index (BMI) [Ratio] 41.78 kg/m2 Grecia Fitt Other [employer] Other 07-23-2023 10:45-0400 Body weight 121.02 kg Grecia Fitt Other [employer] Other 06-27-2023 15:15-0400 Body height 170.18 cm David [place] Other [employer] Other 06-27-2023 15:15-0400 Body mass index (BMI) [Ratio] 41.97 kg/m2 David Bartolo II Other [employer] Other 06-27-2023 15:15-0400 Body weight 121.56 kg David [place] II Other [employer] Other 06-18-2023 11:30-0400 Body height 170.18 cm Grecia Fitt Other [employer] Other 06-18-2023 11:30-0400 Body mass index (BMI) [Ratio] 42.52 kg/m2 Grecia Fitt Other [employer] Other 06-18-2023 11:30-0400 Body weight 123.15 kg Grecia Fitt Other [employer] Other 06-14-2023 10:00-0400 Body height 170.18 cm Rolando Castellanos Other [employer] Other 06-14-2023 10:00-0400 Body mass index (BMI) [Ratio] 42.89 kg/m2 Rolandotimothy Reyesdiff Other [employer] Other 06-14-2023 10:00-0400 Body weight 124.24 kg Rolando Castellanos Other [employer] Other 06-14-2023 10:00-0400 Diastolic blood pressure 87 mm[Hg] Rolando Castellanos Other [employer] Other 06-14-2023 10:00-0400 Respiratory rate 18 /min Rolando Reyesdiff Other [employer] Other 06-14-2023 10:00-0400 SaO2% (BldA) [Mass fraction] 100 % Rolando Reyesdiff Other [employer] Other 06-14-2023 10:00-0400 Systolic blood pressure 124 mm[Hg] Rolando Reyesdiff Other [employer] Other 06-11-2023 12:45-0400 Body height 170.18 cm Waqas Pierce Other [employer] Other 06-11-2023 12:45-0400 Body mass index (BMI) [Ratio] 42.41 kg/m2 Waqas Pierce Other [employer] Other 06-11-2023 12:45-0400 Body weight 122.83 kg Waqas Pierce Other [employer] Other 06-11-2023 12:45-0400 Diastolic blood pressure 76 mm[Hg] Waqas Pierce Other [employer] Other 06-11-2023 12:45-0400 Respiratory rate 12 /min Waqas Pierce Other [employer] Other 06-11-2023 12:45-0400 Systolic blood pressure 124 mm[Hg] Waqas Pierce Other [employer] Other 05-14-2023 10:00-0400 Body height 170.18 cm Grecia Carrera Other [employer] Other 05-14-2023 10:00-0400 Body mass index (BMI) [Ratio] 43.05 kg/m2 Grecia Fitt Other [employer] Other 05-14-2023 10:00-0400 Body weight 124.69 kg Grecia Fitt Other [employer] Other 04-16-2023 10:00-0400 Body height 170.18 cm Grecia Fitt Other [employer] Other 04-16-2023 10:00-0400 Body mass index (BMI) [Ratio] 43.94 kg/m2 Grecia Fitt Other [employer] Other 04-16-2023 10:00-0400 Body weight 127.28 kg Grecia Fitt Other [employer] Other 01-11-2023 11:00-0400 Body height 170.18 cm Grecia Fitt Other [employer] Other 01-11-2023 11:00-0400 Body mass index (BMI) [Ratio] 47.37 kg/m2 Grecia Fitt Other [employer] Other 01-11-2023 11:00-0400 Body weight 137.21 kg Grecia Fitt Other [employer] Other 11-16-2022 11:45-0500 Body height 170.18 cm Rolando Castellanos Other [employer] Other 11-16-2022 11:45-0500 Body mass index (BMI) [Ratio] 47 kg/m2 Rolando Castellanos Other [employer] Other 11-16-2022 11:45-0500 Body weight 136.13 kg Rolando Reyesdiff Other [employer] Other 11-16-2022 11:45-0500 Diastolic blood pressure 85 mm[Hg] Rolando Castellanos Other [employer] Other 11-16-2022 11:45-0500 Respiratory rate 18 /min Rolando Jasmin Other [employer] Other 11-16-2022 11:45-0500 SaO2% (BldA) [Mass fraction] 97 % Rolando Reyesdiff Other [employer] Other 11-16-2022 11:45-0500 Systolic blood pressure 114 mm[Hg] Rolando Castellanos Other [employer] Other 11-14-2022 09:15-0500 Body height 170.18 cm Grecia Henryroberto Other [employer] Other 11-08-2022 14:57-0500 Blood Pressure Location Efrain RABAGOL [facility] 11-08-2022 14:57-0500 Diastolic blood pressure 74 mm[Hg] Efrain RABAGOL [facility] 11-08-2022 14:57-0500 Heart rate 80 /min Efrain RABAGOL [facility] 11-08-2022 14:57-0500 Respiratory rate 16 /min Efrain RABAGOL [facility] 11-08-2022 14:57-0500 Systolic blood pressure 118 mm[Hg] Efrain RABAGOL [facility] 10-23-2022 10:30-0500 Body height 170.18 cm Waqas Pierce Other [employer] Other 10-23-2022 10:30-0500 Body mass index (BMI) [Ratio] 46.04 kg/m2 Waqas Pierce Other [employer] Other 10-23-2022 10:30-0500 Body weight 133.36 kg Waqas Pierce Other [employer] Other 10-23-2022 10:30-0500 Diastolic blood pressure 88 mm[Hg] Waqas Pierce Other [employer] Other 10-23-2022 10:30-0500 Systolic blood pressure 148 mm[Hg] Waqas Pierce Other [employer] Other 10-13-2022 10:15-0500 Body height 170.18 cm Rachel Davidsonler Other [employer] Other 10-13-2022 10:15-0500 Body mass index (BMI) [Ratio] 45.89 kg/m2 Rachelher Davidsonler Other [employer] Other 10-13-2022 10:15-0500 Body weight 132.9 kg Rachel Missler Other [employer] Other 10-13-2022 10:15-0500 Diastolic blood pressure 89 mm[Hg] Rachel Missler Other [employer] Other 10-13-2022 10:15-0500 Respiratory rate 18 /min Rachel Missler Other [employer] Other 01-13-2023 10:15-0500 SaO2% (BldA) [Mass fraction] 96 % Rachel Vela Other [employer] Other 10-13-2022 10:15-0500 Systolic blood pressure 138 mm[Hg] Rachel Vela Other [employer] Other 09-06-2022 16:00-0500 Body height 170.18 cm David [place] II Other [employer] Other 09-06-2022 16:00-0500 Body mass index (BMI) [Ratio] 45.57 kg/m2 David [place] II Other [employer] Other 09-06-2022 16:00-0500 Body weight 132 kg David Bartolo II Other [employer] Other 07-25-2021 18:45-0400 Body height 170.18 cm Mallory Wilfrid Other [employer] Other 07-25-2021 18:45-0400 Body mass index (BMI) [Ratio] 42.91 kg/m2 Mallory Wilfrid Other [employer] Other 07-25-2021 18:45-0400 Body temperature 98.6 [degF] Mallory Wilfrid Other [employer] Other 07-25-2021 18:45-0400 Body weight 124.29 kg Mallory Wilfrid Other [employer] Other 07-25-2021 18:45-0400 Respiratory rate 18 /min Mallory Wilfrid Other [employer] Other 07-25-2021 18:45-0400 SaO2% (BldA) [Mass fraction] 96 % Mallory Yuen Other [facility] [employer] Other Encounters Encounter Date Encounter Type Care Provider Facility Start: 06-19-2025 End: 06-19-2025 Admission to same day surgery center Paulino Hughes MD [facility] Start: 06-19-2025 End: 06-19-2025 ambulatory Waqas Pierce MD Work Phone: [facility] Work Phone: Start: 06-16-2025 End: 06-16-2025 ambulatory Waqas Pierce MD Work Phone: [facility] Work Phone: Start: 06-16-2025 End: 06-16-2025 Patient encounter procedure Waqas Pierce MD -[facility] Work Phone: Start: 06-16-2025 End: 06-16-2025 Preprocedural examination done Waqas Pierce MD [facility] Start: 05-29-2025 End: 05-29-2025 Patient encounter procedure Paulino Hughes MD -[facility] Work Phone: Start: 05-29-2025 End: 05-29-2025 ambulatory Waqas Pierce MD Work Phone: [facility] Work Phone: Start: 05-21-2025 End: 05-21-2025 Patient encounter procedure Paulino Hughes MD -[facility] Work Phone: Start: 05-21-2025 End: 05-21-2025 ambulatory Waqas Pierce MD Work Phone: [facility] Work Phone: Start: 05-06-2025 End: 05-06-2025 Office outpatient visit 15 minutes Jun Lawson MD Work Phone: [facility] Comment on above: OAB (overactive [place]ad [place]) (Primary Dx); Urge incontinence of urine; Nocturnal enuresis Start: 05-06-2025 End: 05-06-2025 ambulatory [facility] Start: 04-07-2025 End: 04-07-2025 ambulatory Waqas Pierce MD Work Phone: [facility] Work Phone: Start: 04-07-2025 End: 04-07-2025 Patient encounter procedure Waqas Pierce MD -[facility] Work Phone: Start: 03-31-2025 Non-patient / Non-visit Tara Chu CMA -[facility] Work Phone: Start: 03-24-2025 End: 03-29-2025 Evaluation and management of inpatient Paulino Hughes MD Work Phone: [facility] Comment on above: Paraesophageal herni a Start: 03-18-2025 End: 03-18-2025 ambulatory [facility] Start: 03-17-2025 End: 03-21-2025 [facility] Start: 03-11-2025 End: 03-11-2025 ambulatory Waqas Pierce MD Work Phone: [facility] Work Phone: Start: 03-11-2025 End: 03-11-2025 Patient encounter procedure Waqas Pierce MD Work Phone: [facility] Work Phone: Start: 03-05-2025 End: 03-05-2025 ambulatory Waqas Pierce MD Work Phone: [facility] Work Phone: Start: 03-05-2025 End: 03-05-2025 Patient encounter procedure Waqas Pierce MD Work Phone: [facility] Work Phone: Start: 03-02-2025 End: 03-02-2025 Patient encounter procedure Waqas Pierce MD Work Phone: [facility] [place] Work Phone: Start: 03-02-2025 End: 03-02-2025 ambulatory Waqas Pierce MD Work Phone: [facility] Work Phone: Start: 02-16-2025 End: 02-16-2025 Patient encounter procedure Waqas Pierce MD Work Phone: [facility] [place] Work Phone: Start: 02-16-2025 End: 02-16-2025 ambulatory Mer Kirkland Facility:[facility] Start: 02-09-2025 End: 02-09-2025 ambulatory Waqas Pierce MD Work Phone: [facility] Work Phone: Start: 02-09-2025 End: 02-09-2025 Patient encounter procedure Waqas Pierce MD Work Phone: [facility] Work Phone: Start: 02-03-2025 End: 02-03-2025 ambulatory Waqas Pierce MD Work Phone: [facility] Work Phone: Start: 02-03-2025 End: 02-03-2025 Patient encounter procedure Waqas Pierce MD Work Phone: [facility] Work Phone: Start: 02-02-2025 End: 02-02-2025 ambulatory Angel Hill MD Facility:[facility] Start: 01-28-2025 End: 01-28-2025 Office outpatient new 45 minutes Jun Lawson MD Work Phone: [facility] - [facility] Comment on above: Urge incontinence of urine (Primary Dx); Nocturnal enuresis; Unprotected sexual intercourse; OAB (overactive bladder) Start: 01-28-2025 End: 03-04-2025 External Result Encounter Uday Wray DO Work Phone: [facility] External Department Unsolicited Start: 01-28-2025 End: 03-04-2025 External Result Encounter Uday Wray DO Work Phone: [facility] External Department Unsolicited Start: 01-28-2025 End: 01-28-2025 ambulatory [facility] Start: 01-28-2025 End: 01-28-2025 ambulatory [facility] Start: 01-06-2025 Non-patient / Non-visit Waqas Pierce MD Work Phone: [facility] Work Phone: Start: 12-24-2024 End: 12-24-2024 Chart abstracting Jun Lawson MD Work Phone: [facility] Pel[facility] - Urogynecology Start: 12-19-2024 End: 12-19-2024 ambulatory Waqas Pierce MD Work Phone: [facility] Work Phone: Start: 12-19-2024 End: 12-19-2024 Patient encounter procedure Waqas Pierce MD Work Phone: [facility] Work Phone: Start: 12-17-2024 Non-patient / Non-visit Waqas Pierce MD Work Phone: [facility] Work Phone: Start: 12-12-2024 End: 12-15-2024 Evaluation and management of inpatient Waqas Pierce MD Work Phone: [address] Surgical Work Phone: Start: 12-10-2024 End: 12-10-2024 Patient encounter procedure Waqas Pierce MD Work Phone: [facility] [address] Work Phone: Start: 12-10-2024 End: 12-10-2024 ambulatory Waqas Pierce MD Work Phone: [facility] Work Phone: Start: 12-09-2024 Patient encounter status Jessica Pierce MD Work Phone: [facility] Start: 12-09-2024 Preprocedural examination done Waqas Pierce MD Work Phone: [facility] Start: 12-09-2024 End: 12-09-2024 ambulatory Waqas Pierce MD Work Phone: [facility] Work Phone: Start: 12-09-2024 End: 12-09-2024 Encounter for other preprocedural examination Waqas Pierce MD Work Phone: [facility] Start: 12-09-2024 End: 12-09-2024 Patient encounter procedure Waqas Pierce MD Work Phone: [facility] Work Phone: Start: 12-04-2024 Non-patient / Non-visit Waqas Pierce MD Work Phone: [facility] Work Phone: Start: 12-02-2024 End: 12-02-2024 Patient encounter procedure Waqas Pierce MD Work Phone: [facility] Work Phone: Start: 12-02-2024 End: 12-02-2024 ambulatory Waqas Pierce MD Work Phone: [facility] Work Phone: Start: 12-01-2024 End: 12-01-2024 Bamboo flowsheet Uday Nils DO Work Phone: [facility] Start: 12-01-2024 End: 12-04-2024 Bamboo flowsheet Uday Nils DO Work Phone: [facility] Start: 12-01-2024 End: 12-04-2024 Clinisync Result Encounter Uday Nils DO Work Phone: [facility] External Department Unsolicited Start: 12-01-2024 Non-patient / Non-visit Waqas Pierce MD Work Phone: [facility] Work Phone: Start: 12-01-2024 End: 12-01-2024 Patient encounter procedure Uday Nils DO Work Phone: [facility] Start: 12-01-2024 End: 12-01-2024 Periodic preventive med est patient 40-64yrs Uday Nils DO Work Phone: [facility] Comment on above: Well woman exam with routine gynecological exam; Postmenopausal state; Encounter for screening mammogram for malignant neoplasm of breast; Urinary retention; Mixed stress and urge urinary incontinence; Cervical polyp Start: 12-01-2024 End: 12-01-2024 ambulatory UDAY NILS Not Available Start: 11-24-2024 End: 11-24-2024 ambulatory Waqas Pierce MD Work Phone: [facility] Work Phone: Start: 11-24-2024 End: 11-24-2024 Discharged Recurring Waqas Pierce MD Work Phone: [facility]Physical Therapy [place] Work Phone: Start: 11-14-2024 End: 11-14-2024 Clinisync Result Encounter Uday Nils DO Work Phone: [facility] External Department Unsolicited Start: 11-14-2024 End: 11-14-2024 Clinisync Result Encounter Uday Nils DO Work Phone: [facility] External Department Unsolicited Start: 11-13-2024 End: 11-13-2024 Patient encounter procedure Waqas Pierce MD Work Phone: [facility]Digest[facility] Work Phone: Start: 11-13-2024 End: 11-13-2024 ambulatory Waqas Pierce MD Work Phone: [facility] Work Phone: Start: 11-13-2024 End: 11-13-2024 Non-patient / Non-visit Waqas Pierce MD Work Phone: [facility] Work Phone: Start: 11-13-2024 Registered Recurring Waqas dang MD Work Phone: [facility] [place] Work Phone: Start: 11-11-2024 End: 11-11-2024 Patient encounter procedure Waqas Pierce MD Work Phone: [facility]-Lab [place] Work Phone: Start: 11-11-2024 End: 11-11-2024 ambulatory Waqas Pierce MD Work Phone: [facility] Work Phone: Start: 11-10-2024 Registered Recurring Waqas dang MD Work Phone: [facility]Physical [facility] [place] Work Phone: Start: 11-04-2024 End: 11-04-2024 ambulatory Waqas Pierce MD Work Phone: [facility] Work Phone: Start: 11-04-2024 End: 11-04-2024 Patient encounter procedure Waqas Pierce MD Work Phone: [facility] Work Phone: Start: 11-03-2024 Registered Recurring Waqas dang MD Work Phone: [facility]Physical Therapy [place] Work Phone: Start: 10-29-2024 Registered Recurring Waqas dang MD Work Phone: [facility] Credible Start: 10-28-2024 End: 10-28-2024 ambulatory Waqas Pierce MD Work Phone: [facility] Work Phone: Start: 10-28-2024 End: 10-28-2024 Patient encounter procedure Waqas Pierce MD Work Phone: [facility] Work Phone: Start: 10-24-2024 End: 10-24-2024 ambulatory [facility] Start: 10-13-2024 End: 10-13-2024 ambulatory Angel Hill MD Facility:[facility] Start: 10-07-2024 Non-patient / Non-visit Waqas Pierce MD Work Phone: [facility] Work Phone: Start: 10-07-2024 End: 10-07-2024 Admission to same day surgery center Waqas Pierce MD Work Phone: [facility] Work Phone: Start: 10-07-2024 End: 10-07-2024 ambulatory Waqas Pierce MD Work Phone: [facility] Work Phone: Start: 10-06-2024 Registered Recurring Waqas dang MD Work Phone: [facility] Start: 09-29-2024 End: 09-29-2024 Patient encounter procedure Waqas Pierce MD Work Phone: [facility] Work Phone: Start: 09-29-2024 End: 09-29-2024 ambulatory Angel Hill MD Facility: [facility] Start: 09-18-2024 Non-patient / Non-visit Waqas Pierce MD Work Phone: [facility] Work Phone: Start: 09-16-2024 Non-patient / Non-visit Waqas Pierce MD Work Phone: [facility] Work Phone: Start: 09-11-2024 Registered Recurring Waqas dang MD Work Phone: [facility] Start: 09-11-2024 Non-patient / Non-visit Waqas Pierce MD Work Phone: [facility] Work Phone: Start: 08-27-2024 End: 08-27-2024 ambulatory David Mcfarland II Facility:[facility] Start: 08-27-2024 End: 08-27-2024 Patient encounter procedure Waqas Pierce MD Work Phone: [facility] Work Phone: Start: 08-25-2024 End: 08-25-2024 Patient encounter procedure Waqas Pierce MD Work Phone: [facility] Work Phone: Start: 08-18-2024 End: 08-18-2024 ambulatory Angel Hill MD Facility:[facility] Start: 08-04-2024 End: 08-04-2024 ambulatory [facility] Work Phone: Start: 08-04-2024 End: 08-04-2024 Patient encounter procedure [facility] Work Phone: Start: 07-25-2024 End: 07-25-2024 ambulatory [facility] Start: 07-15-2024 Non-patient / Non-visit [facility] Work Phone: Start: 06-19-2024 End: 06-19-2024 ambulatory [facility] Work Phone: Start: 06-19-2024 End: 06-19-2024 Patient encounter procedure [facility] Work Phone: Start: 06-17-2024 Non-patient / Non-visit [facility] Work Phone: Start: 06-16-2024 Patient encounter procedure [facility] Start: 06-16-2024 End: 06-16-2024 ambulatory [facility] Work Phone: Start: 06-16-2024 End: 06-16-2024 Patient encounter procedure [facility] Work Phone: Start: 05-23-2024 End: 05-23-2024 ambulatory [facility] Work Phone: Start: 05-23-2024 End: 05-23-2024 Patient encounter procedure [facility] Work Phone: Start: 02-21-2024 End: 02-21-2024 ambulatory MD aWqas Pierce Work Phone: [facility] Work Phone: Start: 02-21-2024 End: 02-21-2024 Patient encounter procedure MD Waqas Pierce Work Phone: [facility] Work Phone: Start: 01-15-2024 End: 01-15-2024 ambulatory NON STAFF [facility] Work Phone: Start: 01-15-2024 End: 01-15-2024 Patient encounter procedure [facility] Work Phone: Start: 01-11-2024 Non-patient / Non-visit [facility] Work Phone: Start: 01-10-2024 End: 01-10-2024 ambulatory MD Waqas Pierce Work Phone: [facility] Work Phone: Start: 01-10-2024 End: 01-10-2024 Patient encounter procedure MD Waqas Pierce Work Phone: [facility] Work Phone: Start: 01-03-2024 End: 01-03-2024 ambulatory MD Waqas Pierce Work Phone: [facility] Work Phone: Start: 01-03-2024 End: 01-03-2024 Patient encounter procedure MD Waqas Pierce Work Phone: [facility] Work Phone: Start: 12-26-2023 End: 12-26-2023 ambulatory MD Waqas Pierce Work Phone: [facility] Work Phone: Start: 12-26-2023 End: 12-26-2023 Patient encounter procedure MD Waqas Pierce Work Phone: [facility] Work Phone: Start: 12-10-2023 End: 12-10-2023 Patient encounter procedure MD Waqas Pierce Work Phone: [facility] Work Phone: Start: 12-04-2023 Registered Recurring MD Waqas Pierce Work Phone: [facility] Start: 11-28-2023 End: 11-28-2023 Patient encounter procedure MD Waqas Pierce Work Phone: [facility] Work Phone: Start: 11-28-2023 End: 11-28-2023 Patient encounter procedure MD Waqas Pierce Work Phone: [facility] [place] [facility] Start: 11-22-2023 End: 11-22-2023 ambulatory NON STAFF [facility] Work Phone: Start: 11-22-2023 End: 11-22-2023 Patient encounter procedure [facility] Work Phone: Start: 11-21-2023 End: 11-21-2023 ambulatory NON STAFF [facility] Work Phone: Start: 11-21-2023 End: 11-21-2023 Patient encounter procedure [facility] Work Phone: Start: 11-20-2023 Registered Recurring MD Waqas Pierce Work Phone: [facility]- [facility] Start: 11-19-2023 End: 11-19-2023 ambulatory NON STAFF [facility] Work Phone: Start: 11-19-2023 End: 11-19-2023 Patient encounter procedure [facility] Work Phone: Start: 11-01-2023 End: 11-01-2023 ambulatory Waqas Pierce Other [employer] Other Start: 11-01-2023 Office outpatient vi sit 15 minutes Waqas Pierce [facility] Start: 11-01-2023 End: 11-01-2023 Patient encounter procedure [facility]- Start: 10-31-2023 End: 10-31-2023 ambulatory Waqas Pierce Other [employer] Other Start: 10-31-2023 Telephone encounter Waqas Pierce [facility] Start: 10-23-2023 Registered Recurring MD Waqas Pierce Work Phone: [facility]- [facility] Start: 10-17-2023 Postop follow up vis it related to original px David Mcfarland II [facility] Start: 10-17-2023 End: 10-17-2023 ambulatory NON STAFF [facility] Work Phone: Start: 10-17-2023 End: 10-17-2023 Patient encounter procedure [facility] [place] [facility] Start: 10-15-2023 ([facility] RD FU) [facility] F/ U Registerd Tetryl Wringer Operator Grecai Carrera [facility] Start: 10-15-2023 End: 10-15-2023 ambulatory Grecia Carrera Other [employer] Other Start: 10-15-2023 Registered Recurring [facility] Work Phone: Start: 10-15-2023 End: 10-15-2023 Patient encounter procedure [facility] Work Phone: Start: 10-02-2023 End: 10-02-2023 ambulatory Rolando Castellanos Other [employer] Other Start: 10-02-2023 Telephone encounter Rolando dhillon [facility] Start: 09-19-2023 End: 09-19-2023 ambulatory David Mcfarland II Other [employer] Other Start: 09-19-2023 Postop follow up vis it related to original px Carrie Perea [facility] Start: 09-19-2023 Telephone encounter David Mcfarland II [facility] Start: 09-19-2023 End: 09-19-2023 Patient encounter procedure [facility] Work Phone: Start: 09-18-2023 End: 09-18-2023 ambulatory Rolando Castellanos Other [employer] Other Start: 09-18-2023 Follow-up encounter Rolando dhillon [facility] Start: 09-18-2023 End: 09-18-2023 Patient encounter procedure [facility] Work Phone: Start: 09-17-2023 ([facility] RD FU) [facility] F/ U Registerd Tetryl Wringer Operator Grecia Carrera [facility] Start: 09-17-2023 End: 09-17-2023 ambulatory Grecia Carrera Other [employer] Other Start: 09-17-2023 End: 09-17-2023 Patient encounter procedure [facility] Work Phone: Start: 09-10-2023 End: 09-10-2023 ambulatory David Rdzle II Other [employer] Other Start: 09-10-2023 Telephone encounter David [place] II [facility] Start: 09-03-2023 End: 09-03-2023 Admission to same day surgery center MD Waqas Pierce Work Phone: [facility]-Surgery Center [facility] [place] Start: 09-03-2023 End: 09-03-2023 ambulatory MD Waqas Pierce Work Phone: [facility] Work Phone: Start: 08-31-2023 (Prolonged) Prolonge d Services David Bartolo II [facility] Start: 08-31-2023 End: 08-31-2023 ambulatory David Bartolo II Other [employer] Other Start: 08-31-2023 Registered Recurring MD Waqas Pierce Work Phone: [facility]-Physical Therapy [place] Start: 08-30-2023 End: 08-30-2023 ambulatory David Bartolo II Other [employer] Other Start: 08-30-2023 Office outpatient vi sit 40 minutes David [place] II [facility] Start: 08-28-2023 End: 08-28-2023 ambulatory MD Waqas Pierce Work Phone: [facility] Work Phone: Start: 08-28-2023 End: 08-28-2023 Patient encounter procedure MD Waqas Pierce Work Phone: [facility] Testing Work Phone: Start: 08-28-[address] [facility] Start: 08-21-2023 End: 08-21-2023 ambulatory Waqas Pierce Other [employer] Other Start: 08-21-2023 Encounter for other preprocedural examination Waqas Pierce [facility] Start: 08-21-2023 Office outpatient vi sit 25 minutes Waqas Pierce [facility] Start: 08-15-2023 End: 08-15-2023 ambulatory MD Waqas Pierce Work Phone: [facility] Work Phone: Start: 08-15-2023 End: 08-15-2023 Patient encounter procedure MD Waqas Pierce Work Phone: [facility] [place] [facility] Start: 08-13-2023 Registered Recurring MD Waqas Peirce Work Phone: [facility]-Weight Management Work Phone: Start: 08-13-2023 ([facility] RD FU) [facility] F/ U Registerd Tetryl Wringer Operator Grecia Carrera [facility] Start: 08-13-2023 End: 08-13-2023 ambulatory Grecia Carrera Other [facility] [employer] Other Start: 08-06-2023 End: 08-06-2023 ambulatory David Mcfarland II Other [employer] Other Start: 08-06-2023 Telephone encounter David Mcfarland II [facility] Start: 08-01-2023 End: 08-01-2023 ambulatory Waqas Pierce Other [employer] Other Start: 08-01-2023 Telephone encounter Waqas Pierce [facility] Start: 07-31-2023 (Televisit) Televisit Waqas Pierce [facility] Start: 07-31-2023 End: 07-31-2023 ambulatory Waqas Pierce Other [employer] Other Start: 07-26-2023 End: 07-26-2023 ambulatory Rolando Castellanos Other [employer] Other Start: 07-26-2023 Follow-up encounter Rolando Vasquez [facility] Start: 07-26-2023 Telephone encounter David Mcfarland II [facility] Start: 07-23-2023 ([facility] FU) [facility] F/ U Registerd Tetryl Wringer Operator Grecia Carrera [facility] Start: 07-23-2023 End: 07-23-2023 ambulatory Grecia Carrera Other [employer] Other Start: 07-09-2023 End: 07-09-2023 ambulatory Rolando Castellanos Other [employer] Other Start: 07-09-2023 Telephone encounter Rolando Vasquez [facility] Start: 06-27-2023 End: 06-27-2023 ambulatory David Mcfarland II Other [employer] Other Start: 06-27-2023 Office outpatient vi sit 25 minutes David Bartolo II [facility] Start: 06-19-2023 End: 06-19-2023 ambulatory Waqas Pierce Other [employer] Other Start: 06-19-2023 Telephone encounter Waqas Pierce [facility] Start: 06-18-2023 ([facility] FU) [facility] F/ U Registerd Tetryl Wringer Operator Grecia Carrera [facility] Start: 06-18-2023 End: 06-18-2023 ambulatory Grecia Henryt Other [employer] Other Start: 06-14-2023 End: 06-14-2023 ambulatory Rolando Reyesdiff Other [employer] Other Start: 06-14-2023 Follow-up encounter Rolando Reyesdiff [facility] Start: 06-11-2023 End: 06-11-2023 ambulatory Waqas Pierce Other [employer] Other Start: 06-11-2023 Encounter for genera l adult medical examination without abnormal findings Waqas Pierce [facility] Start: 06-11-2023 Periodic preventive med est patient 40-64yrs Waqas Pierce [facility] Start: 06-01-2023 End: 06-01-2023 ambulatory Waqsa Kari Other [employer] Other Start: 06-01-2023 Telephone encounter Waqas Kari [facility] Start: 05-28-2023 End: 05-28-2023 ambulatory Waqas Kari Other [employer] Other Start: 05-28-2023 Telephone encounter Waqas Kari [facility] Start: 05-14-2023 ([facility] FU) [facility] F/ U Registerd Tetryl Wringer Operator Grecia Carrera [facility] Start: 05-14-2023 End: 05-14-2023 ambulatory Grecia Fitt Other [employer] Other Start: 04-16-2023 ([facility] RD FU) [facility] F/ U Registerd Tetryl Wringer Operator Grecia Fitt [facility] Start: 04-16-2023 End: 04-16-2023 ambulatory Grecia Fitt Other [employer] Other Start: 03-21-2023 End: 03-21-2023 ambulatory Waqas Kari Other [employer] Other Start: 03-21-2023 Telephone encounter Waqas Pierce [facility] Start: 02-22-2023 ambulatory MER MAYBERRY . Facil ity:H1 Start: 02-13-2023 End: 02-14-2023 ambulatory AMY Iverson [facility] Facility:[facility] Start: 01-31-2023 End: 01-31-2023 ambulatory Waqas Pierce Other [employer] Other Start: 01-31-2023 Telephone encounter Waqas Pierce [facility] [address] Start: 01-30-2023 End: 01-31-2023 ambulatory AMY Iverson [facility] Facility:[facility] Start: 01-19-2023 End: 01-20-[address] ROLANDO CASTELLANOS Facility:[facility] Start: 01-11-2023 ([facility] WMNI) WMN Init ial Provider Grecia Carrera [facility] Start: 01-11-2023 End: 01-11-2023 ambulatory Grecia Carrera Other [employer] Other Start: 01-09-2023 End: 01-10-2023 ambulatory AMY KASPER Facility:[facility] Start: 12-25-2022 End: 12-25-2022 ambulatory Junior Roslyn Other [employer] Other Start: 12-25-2022 Telephone encounter [facility] Start: 12-22-2022 End: 12-23-2022 ambulatory AMY Iverson [facility] Facility:H1 Start: 12-18-2022 End: 12-18-2022 ambulatory Junior Mcgowan Other [employer] Other Start: 12-18-2022 Telephone encounter Junior King [facility] Start: 12-15-2022 End: 12-15-2022 ambulatory Waqas Pierce Other [employer] Other Start: 12-15-2022 Telephone encounter Waqas Pierce [facility] Start: 12-12-2022 Telephone encounter Rolando Jasmin [facility] Start: 12-12-2022 End: 12-13-[address] WAQAS PIERCE [employer] Other Start: 12-06-2022 Telephone encounter Waqas Pierce [facility] Start: 12-06-2022 End: 12-07-2022 ambulatory Efrain CORTES [employer] Other Start: 12-01-2022 End: 12-02-[address] WAQSA PIERCE Facility: Start: 11-20-2022 End: 11-20-2022 ambulatory Rolando Castellanos Other [employer] Other Start: 11-20-2022 Telephone encounter Rolando Vasquez [facility] Start: 11-17-2022 Telephone encounter Waqas [facility] Start: 11-17-2022 End: 11-18-[address] WAQAS PIERCE [employer] Other Start: 11-16-2022 End: 11-16-2022 ambulatory Rolando Castellanos Other [employer] Other Start: 11-16-2022 Follow-up encounter Rolando Vasquez [facility] Start: 11-14-2022 End: 11-14-2022 ambulatory Grecia Carlroberto Other [employer] Other Start: 11-14-2022 IBT FOR OBESITY GROU P 2-10 30M Grecia Carlt [facility] Start: 11-13-2022 End: 11-13-2022 ambulatory Waqas Pierce Other [employer] Other Start: 11-13-2022 Telephone encounter [facility] Start: 11-08-2022 End: 11-09-2022 ambulatory Efrain CORTES Facility:[facility] Start: 11-08-2022 End: 11-08-2022 Patient encounter procedure Efrain R NILL General Surgery Nill/Said Danielson Start: 11-06-2022 End: 11-07-[address] WAQAS PIERCE Facility:[facility] Start: 11-05-2022 Encounter for gynecological examination (general) (routine) without abnormal findings DR UDYA WRAY . [facility] Start: 11-03-2022 End: 11-04-[address] WAQAS PIERCE Facility:[facility] Start: 10-30-2022 End: 10-31-[address] WAQAS PIERCE Facility:[facility] Start: 10-25-2022 End: 10-25-2022 ambulatory Waqas Pierce Other [employer] Other Start: 10-25-2022 Telephone encounter [facility] Start: 10-24-2022 End: 10-24-2022 ambulatory Rolando Castellanos Other [employer] Other Start: 10-24-2022 Telephone encounter Rolando Castellanos [facility] Start: 10-23-2022 Office outpatient vi sit 15 minutes [facility] Start: 10-23-2022 Telephone encounter [facility] Start: 10-23-2022 End: 10-24-2022 ambulatory NON STAFF [facility] Work Phone: Start: 10-23-2022 End: 10-23-2022 Departed Referred [facility] [place] Work Phone: Start: 10-20-2022 End: 10-20-2022 ambulatory Waqas Pierce Other [employer] Other Start: 10-20-2022 Telephone encounter [facility] Start: 10-17-2022 End: 10-18-[address] WAQAS PIERCE Facility:[facility] Start: 10-13-2022 End: 10-13-2022 ambulatory Rachel Vela Other [employer] Other Start: 10-13-2022 Nutrition therapy Rachel Vela [facility] Start: 10-13-2022 Telephone encounter Rachel Vela [facility] Start: 10-13-[address] [facility] Work Phone: Start: 10-10-2022 End: 10-11-[address] WAQAS PIERCE Facility:[facility] Start: 10-06-2022 End: 10-06-2022 ambulatory Waqas Pierce Other [employer] Other Start: 10-06-2022 Telephone encounter [facility]qas [facility] Start: 10-04-2022 (Procedure) Rayne Mcgowan [facility] Start: 10-04-2022 End: 10-04-2022 ambulatory Junior Mcgowan Other [employer] Other Start: 10-03-2022 End: 10-04-[address] WAQAS PIERCE [employer] Other Start: 10-03-2022 Telephone encounter [facility] Start: 09-27-2022 End: 09-27-2022 ambulatory Junior Mcgowan Other [employer] Other Start: 09-27-2022 Telephone encounter Junior King [facility] Start: 09-19-2022 End: 09-20-[address] WAQAS PIERCE Facility:[facility] Start: 09-11-2022 End: 09-12-[address] WAQAS PIERCE Facility:[facility] Start: 09-06-2022 End: 09-06-2022 Patient encounter procedure [facility] Start: 09-06-2022 End: 09-06-2022 ambulatory NON STAFF [facility] Work Phone: Start: 09-06-2022 FQHC visit new patient David Rdz anoop BAUGH [facility] Start: 08-28-2022 End: 08-29-[address] WAQAS PIERCE Facility:[facility] Start: 08-18-2022 Adult health examination Grecia Carrera Other [employer] Other Start: 08-18-2022 Gynecological examination normal Grecia Carrera Other [employer] Other Start: 08-18-2022 End: 08-19-[address] [...] Encounter for other preprocedural examination AMY KASPER [facility] Start: 04-24-[address] WAQAS PIERCE Facil [...] Pre-procedure evalua tion check Grecia Carrera Other [employer] Other Start: 07-25-2021 Office outpatient vi sit 15 minutes Mallory Yuen [facility] Start: 06-23-2021 Office outpatient vi sit 25 minutes Junior Mcgowan [facility] [facility] Start: 06-23-2021 Telephone encounter Junior Mcgowan [facility] Start: 12-16-2020 End: 12-17-2020 ambulatory REFERRED SELF Facility:[facility] Procedures Date Procedure Procedure Detail Performing Clinician Start: 06-19-2025 Esophagogastroduodenoscopy Waqas Pierce MD Work Phone: Start: 05-29-2025 Radionuclide gastric emptying study Waqas Pierce MD Work Phone: Start: 05-06-2025 Follow-up visit Follow-up JUN LAWSON Start: 03-29-2025 Rhythm ecg 1-3 leads w/interpretation & report Unknown Provider Result Start: 03-29-2025 Gluc bld gluc mntr dev cleared fda spec home use Unknown Provider Result Start: 03-29-2025 Gluc bld gluc mntr dev cleared fda spec home use Unknown Provider Result Start: 03-29-2025 Renal function panel Lashonda Huffman [facility] [employer] Work Phone: Start: 03-29-2025 Rhythm ecg 1-3 leads w/interpretation & report Unknown Provider Result Start: 03-28-2025 End: 03-28-2025 Gluc bld gluc mntr dev cleared fda spec home use Unknown Provider Result Start: 03-28-2025 Gluc bld gluc mntr dev cleared fda spec home use Unknown Provider Result Start: 03-28-2025 Rhythm ecg 1-3 leads w/interpretation & report Unknown Provider Result Start: 03-28-2025 Gluc bld gluc mntr dev cleared fda spec home use Unknown Provider Result Start: 03-28-2025 Gluc bld gluc mntr dev cleared fda spec home use Unknown Provider Result Start: 03-28-2025 Gluc bld gluc mntr dev cleared fda spec home use Unknown Provider Result Start: 03-28-2025 Renal function panel Lashonda Huffman [facility] [employer] Work Phone: Start: 03-28-2025 Gluc bld gluc mntr dev cleared fda spec home use Unknown Provider Result Start: 03-28-2025 Rhythm ecg 1-3 leads w/interpretation & report Unknown Provider Result Start: 03-27-2025 Gluc bld gluc mntr dev cleared fda spec home use Unknown Provider Result Start: 03-27-2025 Gluc bld gluc mntr dev cleared fda spec home use Unknown Provider Result Start: 03-27-2025 Gluc bld gluc mntr dev cleared fda spec home use Unknown Provider Result Start: 03-27-2025 Radiologic exam chest single view Paulino Hughes MD Work Phone: Start: 03-27-2025 Rhythm ecg 1-3 leads w/interpretation & report Unknown Provider Result Start: 03-27-2025 Gluc bld gluc mntr dev cleared fda spec home use Unknown Provider Result Start: 03-27-2025 End: 03-27-2025 Renal function panel Lashonda Huffman [employer] Work Phone: Start: 03-27-2025 Gluc bld gluc mntr dev cleared fda spec home use Unknown Provider Result Start: 03-27-2025 Rhythm ecg 1-3 leads w/interpretation & report Unknown Provider Result Start: 03-26-2025 Gluc bld gluc mntr dev cleared fda spec home use Unknown Provider Result Start: 03-26-2025 Gluc bld gluc mntr dev cleared fda spec home use Unknown Provider Result Start: 03-26-2025 Gluc bld gluc mntr dev cleared fda spec home use Unknown Provider Result Start: 03-26-2025 Rhythm ecg 1-3 leads w/interpretation & report Unknown Provider Result Start: 03-26-2025 Gluc bld gluc mntr dev cleared fda spec home use Unknown Provider Result Start: 03-26-2025 Renal function panel Lashonda Huffman [facility] [employer] Work Phone: Start: 03-26-2025 Gluc bld gluc mntr dev cleared fda spec home use Unknown Provider Result Start: 03-26-2025 Gluc bld gluc mntr dev cleared fda spec home use Unknown Provider Result Start: 03-25-2025 Gluc bld gluc mntr dev cleared fda spec home use Unknown Provider Result Start: 03-25-2025 End: 03-25-2025 Rhythm ecg 1-3 leads w/interpretation & report Unknown Provider Result Start: 03-25-2025 Basic metabolic 2000 panel - Serum or Plasma Lashonda Fairley [employer] Work Phone: Start: 03-25-2025 Gluc bld gluc mntr dev cleared fda spec home use Unknown Provider Result Start: 03-25-2025 Gluc bld gluc mntr dev cleared fda spec home use Unknown Provider Result Start: 03-25-2025 Blood count complete automated Paulino lundberg MD Work Phone: Start: 03-25-2025 Basic metabolic 2000 panel - Serum or Plasma Paulino Hughes MD Work Phone: Start: 03-24-2025 End: 03-24-2025 Ecg routine ecg w/least 12 lds trcg only w/o i&r Jessica Wan MD Work Phone: Start: 03-24-2025 Basic metabolic 2000 panel - Serum or Plasma Paulino Hughes MD Work Phone: Start: 03-24-2025 Blood count complete automated Paulino lundberg MD Work Phone: Start: 03-24-2025 Radiologic exam chest single view Paulino Hughes MD Work Phone: Start: 03-24-2025 End: 03-24-2025 Laps rpr paraesphgl hrna incl fundplsty w/o mesh Paulino Hughes MD Work Phone: Start: 03-24-2025 Level iv surg pathology gross&microscopic exam Paulino Hughes MD Work Phone: Start: 03-02-2025 CT of thorax with contrast Waqas Pierce MD Work Phone: Start: 02-16-2025 CT of abdomen with contrast Waqas Pierce MD Work Phone: Start: 01-28-2025 VAGINITIS PANEL PCR Jun Lawson MD Work Phone: Start: 01-28-2025 End: 01-28-2025 Culture bacterial quanttative colony count urine Jun Lawson MD Work Phone: Start: 01-28-2025 Urinalysis Jun Lawson MD Work Phone: Start: 01-28-2025 End: 01-28-2025 Urnls dip stick/tablet rgnt non-auto w/o micrscp Jun Lawson MD Work Phone: Start: 01-28-2025 MEASURE POST VOID RESIDUAL Jun krueger MD Work Phone: Start: 12-12-2024 Plain X-ray abdomen Waqas Pierce MD Work Phone: Start: 12-12-2024 Esophageal hiatus hernia repair Waqas aldd MD Work Phone: Start: 12-12-2024 Esophagogastroduodenoscopy Waqas Pierce MD Work Phone: Start: 12-10-2024 CT of chest without contrast Waqas pressley MD Work Phone: Start: 12-01-2024 IGP,APTIMA HPV,AGE GDLN Uday Wray DO Work Phone: Start: 12-01-2024 Microscopic observation [Identifier] in Cervix by Cyto stain Jun Lawson MD Work Phone: Start: 11-14-2024 MM TOMOSYNTHESIS SCREENING BI Uday Garsia o DO Work Phone: Start: 11-14-2024 Mammography Uday Garsiao DO Work Phone: Start: 11-13-2024 Ultrasound elastography of liver Waqas Pierce MD Work Phone: Start: 10-07-2024 Esophagogastroduodenoscopy Waqas Pierce MD Work [...] WAQAS PIERCE Start: 04-24-2022 Insertion of Tissue [employer] into Left Foot Subcutaneous Tissue and Fascia, Open Approach DR WAQAS PIERCE Start: 04-24-2022 Removal of Internal Fixation Device from Left Tarsal, Open Approach DR WAQAS PIERCE Start: 04-24-2022 Replacement of Left Foot Skin with Nonautologous Tissue Substitute, Full Thickness, External Approach DR WAQAS PIERCE Start: 05-31-2021 Microscopic observation [Identifier] in Cervix by Cyto stain Uday Nilsjoann BOURGEOIS Work Phone: Start: 12-16-2020 ANESTH LOWER ARM SURGERY JUDSON ALTGERMANIAOF Start: 12-16-2020 Tendon sheath incision DAVID REYNAAndrea Start: 10-01-2020 Varicose veins of left lower limb (disorder) Efrain RABAGOL Comment on above: procedure Start: 09-08-2020 Esophagogastroduodenoscopy Efrain HIMAL Start: 12-04-2016 Laboratory test result abnormal Grecia Fit t Other Arthroplasty Efrain HIMAL Comment on above: left hip Bilateral bone spur of calcaneum (disorder) Efrain RABAGOL Decompression of median nerve Efrain CORTES Comment on above: left wrist Fasciotomy of foot Efrain ARAGON 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 Francis dwain CORTES H/O: artificial joint Aftercare following joint replacement MD Waqas Pierce Work Phone: H/O: surgery History of pyloroplasty Waqas Pierce MD Inject trigger finger/thumb Efrain CORTES Laboratory test result abnormal Waqas Pierce Other Screening for malign ant neoplasm of breast Grecia Fitt Other Screening for osteoporosis D osmel Fitt Other Tonsillectomy and adenoidectomy Efrain CORTES Plan of Treatment Date Care Activity Detail Author Start: 12-03-2034 DTaP,Tdap and Td Vac cines (2 - Td or Tdap) DTaP,Tdap and Td Vaccines (2 - Td or Tdap) [facility] Start: 12-03-2034 DTaP/Tdap/Td vaccine (2 - Td or Tdap) DTaP/Tdap/Td vaccine (2 - Td or Tdap) [facility] Start: 12-01-2029 Screening for malign ant neoplasm of cervix [facility] Start: 07-10-2028 Screening for malign ant neoplasm of cervix [facility] Start: 12-02-2027 Screening for malign ant neoplasm of cervix Pap Smear [facility] Start: 05-31-2026 Screening for malign ant neoplasm of cervix Pap Smear [facility] Start: 01-30-2026 Tobacco Screening Tobacco Screening [facility] Start: 01-28-2026 Adult BMI Screening Adult BMI Screen ing [facility] Start: 01-28-2026 Tobacco Screening Tobacco Screening [facility] Start: 12-03-2025 End: 12-03-2025 Patient encounter procedure 12/03/2025 9:00 AM EST Office Visit [facility] [address] [id number] Uday Wray, DO [address] [place] [address] [facility] Start: 11-14-2025 Screening for malign ant neoplasm of breast Mammogram [facility] Start: 06-25-2025 Pneumococcal 50+ yea rs Vaccine (3 of 3 - PCV20 or PCV21) Pneumococcal 50+ years Vaccine (3 of 3 - PCV20 or PCV21) [facility] Start: 06-19-2025 End: 06-19-2025 [facility] Start: 06-01-2025 Influenza vaccination Influenza Vacc ine [facility] Start: 05-01-2025 Influenza vaccination Flu vacc ine (Season Ended) [facility] Start: 04-29-2025 End: 04-29-2025 Patient encounter procedure 04/29/2025 2:15 PM EDT Office Visit [facility] [address] [place] [address] Jun Lawson MD [address] [place] [address] [facility] Start: 01-28-2025 End: 01-28-2025 Patient encounter procedure 01/28/2025 2:15 PM EDT Office Visit [facility] [address] [place] [id number] Jun Lawson MD [address] [place] [address] [facility] Start: 12-15-2024 Administration of prophylactic treatment [facility] Start: 12-13-2024 End: 12-13-2024 [facility] Start: 12-12-2024 Repair Diaphragm, Percutaneous Endoscopic Approach Repair Diaphragm, Percutaneous Endoscopic Approach [facility] Start: 12-12-2024 Restriction of Esophagogastric Junction, Percutaneous Endoscopic Approach Restriction of Esophagogastric Junction, Percutaneous Endoscopic Approach [facility] Start: 12-12-2024 Hospital admission [facility] Start: 12-01-2024 End: 12-01-2025 DXA Skeletal system Views for bone density DEXA bone density Imaging Routine Well woman exam with routine gynecological exam Postmenopausal state Expected: 12/01/2024 (Approximate), Expires: 12/01/2025 [facility] Comment on above: Expected: 12/01/2024 (Approximate), Expires: 12/01/2025 Start: 12-01-2024 End: 01-31-2026 MG Breast - bilateral Screening Bilateral screening mammogram Imaging Routine Well woman exam with routine gynecological exam Encounter for screening mammogram for malignant neoplasm of breast Expected: 12/01/2024, Expires: 01/31/2026 [facility] Work Phone: Comment on above: Expected: 12/01/2024 , Expires: 01/31/2026 Start: 12-01-2024 End: 12-01-2024 Patient encounter procedure [facility] Comment on above: Arrived Start: 11-13-2024 [facility] Start: 11-11-2024 Actin smooth muscle IgG Ab [Units/volume] in Serum [facility] Start: 11-11-2024 Cefuroxime free [Mass/volume] in Serum or Plasma [facility] Start: 11-11-2024 Ceruloplasmin [Mass/volume] in Serum or Plasma [facility] Start: 11-11-2024 Hepatitis B core ant ibody measurement [facility] Start: 11-11-2024 Hepatitis B virus crews rface Ab [Presence] in Serum [facility] Start: 11-11-2024 [facility] Start: 11-05-2024 Screening for malign ant neoplasm of breast Mammogram [facility] Start: 11-04-2024 Patient referral [facility] Work Phone: Start: 11-03-2024 Screening for malign ant neoplasm of breast Breast cancer screen [facility] [employer] Start: 10-07-2024 [facility] Start: 10-01-2024 Annual Wellness Visi t (Medicare Advantage) Annual Wellness Visit (Medicare Advantage) [facility] [place] [employer] Start: 08-12-2024 Patient referral [facility] Work Phone: Start: 06-01-2024 Influenza vaccination [facility] Start: 09-03-2023 Hospital admission [facility] Start: 09-03-2023 End: 09-03-2023 [facility] Start: 09-03-2023 Physical therapy procedure [facility] Start: 08-28-2023 [facility] Start: 08-28-2023 Bacteria identified in Urine by Culture [facility] Start: 2022 Respiratory Syncytia l Virus (RSV) or age 60 yrs+ (1 - Risk 60-74 years 1-dose series) Respiratory Syncytial Virus (RSV) or age 60 yrs+ (1 - Risk 60-74 years 1-dose series) [employer] Start: 2012 Administration of varicella zoster vaccine Zoster (Shingles) Vaccine (1 of 2) [email or web address] Start: 2012 Shingles vaccine (1 of 2) Mendez gles vaccine (1 of 2) [employer] Start: 2007 [facility] malign [facility] Start: 1997 [facility] screen [facility] Start: 1992 Screening for malign ant neoplasm [facility] cervix [facility] Start: 1983 Screening for malign ant neoplasm of cervix Pap Smear [facility] [employer] [facility] Start: 1981 DTaP,Tdap and Td Vac cines (1 - Tdap) DTaP,Tdap and Td Vaccines (1 - Tdap) [facility] [employer] [facility] Start: 1980 Adult BMI Follow Up Plan Adult BMI F ollow Up Plan [facility] [employer] [facility] Start: 1980 Adult BMI Screening Adult BMI Screen ing [facility] [employer] [facility] Start: 1980 Hepatitis C screening Hepatitis C sc reen [facility] [employer] Start: 1977 HIV screening HIV screen [facility] [employer] Start: 1974 Depression Screen Depression Screen [facility] [facility] Start: 1974 Depression Screening Depression Scre ening [facility] Start: 1974 Tobacco Screening Tobacco Screening [facility] [employer] [facility] Start: 1972 Lipid panel Lipids [facility] [employer] Start: 1962 Screening for malign ant neoplasm of colon [facility] Actin smooth muscle IgG Ab [Units/volume] in Serum [facility] Alpha 1 antitrypsin [Mass/volume] in Serum or Plasma [facility] Alpha 1 antitrypsin [Mass/volume] in Serum or Plasma [facility] Alpha 1 antitrypsin phenotyping [Identifier] in Serum or Plasma by Immunofixation [facility] aPTT in Platelet poo r plasma by Coagulation assay [facility] Bacteria identified in Urine by Culture [facility] End: 04-04-2025 CBC W Auto Differential panel - Blood CBC with Auto Differential Lab Routine Daily for 10 Days starting 03/26/2025 until 04/04/2025, 4 completed [facility] [place] [employer] Comment on above: Daily for [address] arting 03/26/2025 until 04/04/2025, 4 completed Cefuroxime free [Mass/volume] in Serum or Plasma [facility] Ceruloplasmin [Mass/volume] in Serum or Plasma [facility] CT Abdomen W contrast IV [facility] CT Chest WO and W contrast IV [facility] End: 03-24-2025 Glucose [Mass/volume] in Serum or Plasma POCT Glucose Point of Care Testing Routine One Time for 1 Occurrences starting 03/24/2025 until 03/24/2025 [facility] [employer] Comment on above: One Time for 1 Occur rences starting 03/24/2025 until 03/24/2025 Glucose [Mass/volume ] in Serum or Plasma [facility] [employer] Work Phone: Comment on above: 4X Daily (AC & HS) u ntil discontinued starting 03/25/2025 As Needed until disc ontinued starting 03/25/2025 Hepatic function panel [facility] Hepatitis B core ant ibody measurement [facility] Hepatitis B virus crews rface Ab [Presence] in Serum [facility] Hepatitis B virus crews rface Ag [Presence] in Serum or Plasma by Immunoassay [facility] End: 01-28-2026 Hepatitis B virus surface Ag [Presence] in Serum or Plasma by Immunoassay Hepatitis B surface antigen Lab Routine Unprotected sexual intercourse 1 Occurrences starting 01/28/2025 until 01/28/2026 [employer] Work Phone: Comment on above: 1 Occurrences starti ng 01/28/2025 until 01/28/2026 End: 01-28-2026 Hepatitis C virus Ab [Presence] in Serum or Plasma by Immunoassay Hepatitis C(HCV) Ab w/ Reflex to PCR Lab Routine Unprotected sexual intercourse 1 Occurrences starting 01/28/2025 until 01/28/2026 [email or web address] Comment on above: 1 Occurrences starti ng 01/28/2025 until 01/28/2026 Hepatitis C virus Ig G Ab [Presence] in Serum or Plasma by Immunoassay [facility] End: 01-28-2026 HIV 1+2 Ab+HIV1 p24 Ag [Presence] in Serum or Plasma by Immunoassay HIV 1&2 AB/AG Screen (P24 AG) Lab Routine Unprotected sexual intercourse 1 Occurrences starting 01/28/2025 until 01/28/2026 [email or web address] Comment on above: 1 Occurrences starti ng 01/28/2025 until 01/28/2026 End: 03-24-2025 INITIATE PACU OXYGEN THERAPY PROTOCOL Initiate PACU Oxygen Therapy Protocol Respiratory Care Routine Continuous until discontinued starting 03/24/2025 [employer] Work Phone: Comment on above: Continuous until dis continued starting 03/24/2025 MR Thoracic spine [facility] Oxygen therapy [[facility] Data Set] Initiate Oxygen Therapy Protocol Respiratory Care Routine As Needed until discontinued starting 03/24/2025 [employer] Comment on above: As Needed until disc ontinued starting 03/24/2025 Pathology study Surgical Patholo gy Lab Routine Paraesophageal hernia Release Upon Ordering for 1 Occurrences starting 03/24/2025 [employer] Comment on above: Release Upon Orderin g for 1 Occurrences starting 03/24/2025 Patient Education [facility] Work Phone: Patient referral [facility] Work Phone: End: 04-04-2025 Renal Function Panel Renal Function Panel Lab Routine Daily for 10 Days starting 03/26/2025 until 04/04/2025, 4 completed [employer] Comment on above: Daily for [address] arting 03/26/2025 until 04/04/2025, 4 completed Spirometry panel Incentive thao metry Respiratory Care Routine Every 2hr while awake until discontinued starting 03/24/2025 [employer] Comment on above: Every 2hr while awak e until discontinued starting 03/24/2025 THIN PREP TIS PAP AN D HR HPV DNA THIN PREP TIS PAP AND HR HPV DNA Pathology and Cytology Routine Well woman exam with routine gynecological exam Ordered: 12/01/2024 [facility] [email or web address] Comment on above: Ordered: 12/01/2024 End: 01-28-2026 Treponema pallidum IgG+IgM Ab [Presence] in Serum by Immunoassay Syphilis Total(Unknown Syphilis Status) Lab Routine Unprotected sexual intercourse 1 Occurrences starting 01/28/2025 until 01/28/2026 [email or web address] Comment on above: 1 Occurrences starti ng 01/28/2025 until 01/28/2026 US Lower extremity v ein - left [facility] XR Chest 2 Views [facility] XR Chest 2 Views [facility] XR Chest 2 Views [facility] Immunizations Immunization Date Immunization Notes Care Provider Fa cility 08-16-2024 COVID-19 (MODERNA) 12Y and older Waqas Pierce MD Work Phone: [facility] 08-16-2024 COVID-19 Ad26.COV2.S (Salvador) Waqas Pierce MD Work Phone: [facility] 08-16-2024 influenza, seasonal, injectable Waqas Pierce MD Work Phone: [facility] 08-16-2024 influenza, seasonal, injectable, preservative free Waqas Pierce MD Work Phone: [facility] 08-16-2024 influenza virus vaccine, unspecified formulation Uday Garsiao DO Work Phone: [facility] 09-28-2023 COVID-19 (PFIZER) 12Y and older MD Waqas Pierce Work Phone: [facility] 09-28-2023 influenza, injectabl e, quadrivalent, preservative free MD Waqas Pierce Work Phone: [facility] 09-28-2023 influenza virus vaccine, unspecified formulation Uday Nils DO Work Phone: [facility] 08-31-2022 COVID-19 (Pfizer) Bivalent Booster, Age 12Y+ [facility] 08-31-2022 influenza virus vaccine, unspecified formulation Efrain CORTES [facility] 08-31-2022 influenza, injectabl e, quadrivalent, preservative free MD Waqas Pierce Work Phone: [facility] 08-31-2022 SARS-CoV-2 (COVID-19 ) [id number] Efrain CORTES [facility] 02-24-2022 COVID-19 (Pfizer); Translations: [COVID-19 (Pfizer)] MD Waqas Pierce Work Phone: [facility] 02-24-2022 COVID-19 Comirnaty (Pfizer) Tri-Sucrose 12+ MD Waqas Pierce Work Phone: [facility] 02-24-2022 SARS-CoV-2 mRNA (cwexrjbxety-msfu-ecqhy se) vaccine Efrain NILL [facility] 11-20-2021 influenza, injectabl e, quadrivalent, preservative free MD Waqas Pierce Work Phone: [facility] 08-19-2021 COVID-19 (Pfizer) [facility] 08-19-2021 SARS-CoV-2 (COVID-19 ) mRNA BNT-162b2 vax Efrain HIMAL [facility] 01-19-2021 COVID-19 (Pfizer) [facility] 01-19-2021 SARS-CoV-2 (COVID-19 ) mRNA BNT-162b2 vax Efrain EmpressrL [facility] 12-31-2020 COVID-19 (Pfizer) [facility] 12-31-2020 SARS-CoV-2 (COVID-19 ) mRNA BNT-162b2 vax [employer] [facility] 06-25-2020 influenza virus vaccine, split virus (incl. purified surface antigen) Grecia Carrera Other [employer] Other 06-25-2020 influenza virus vaccine, unspecified formulation [facility] 06-25-2020 influenza, injectabl e, quadrivalent, preservative free MD Waqas Pierce Work Phone: [facility] 06-25-2020 pneumococcal polysaccharide vaccine, 23 valent Grecia Carrera Other [facility] 07-30-2019 influenza, injectabl e, quadrivalent, contains preservative MD Waqas Pierce Work Phone: [facility] 07-12-2018 influenza, injectabl e, quadrivalent, preservative free MD Waqas Pierce Work Phone: [facility] 11-15-2016 influenza, injectabl e, quadrivalent, preservative free MD Waqas Pierce Work Phone: [facility] pneumococcal vaccine , unspecified formulation Jun Lawson MD Work Phone: [facility] pneumococcal vaccine , unspecified formulation Jun Lawson MD Work Phone: [facility] flu vac [id number] 36 mos up,PF, (AFLURIA QD 2020-,3YR UP,,PF,) 60 mcg (15 mcg x 4)/0.5 mL syringe Jun Lawson MD Work Phone: [facility] flu vacc [id number] 6 mos up,PF, 60 mcg (15 mcg x 4)/0.5 mL syringe Jun Lawson MD Work Phone: [facility] flu vac [id number] 36 mos up,PF, (AFLURIA QD 2020-21,3YR UP,,PF,) 60 mcg (15 mcg x 4)/0.5 mL syringe Jun Lawson MD Work Phone: [facility] flu vacc [id number] 6 mos up,PF, 60 mcg (15 mcg x 4)/0.5 mL syringe Jun Lawson MD Work Phone: [facility] Payers Date Payer Category Payer Medicare HMO [id number] 2024 Medicaid [employer] MEDICARE A DVANTAGE [id number] 2024 Private Health Insurance [id number] 2023 Private Health Insurance 1960 Unknown [id number] 2.16.840.1.880972.3.579.2 .647 1962 Unknown [id number] 2.16.840.1.391312.3.579.2 .727 1962 Unknown [id number] 2.16.840.1.836349.3.579.2 .727 1962 Unknown [id number] 2.16.840.1.991207.3.579.2 .593 1962 Unknown [id number] 2.16.840.1.865438.3.579.2 .593 1962 Unknown [id number] 2.16.840.1.782733.3.579.2 .593 1962 Unknown [id number] 2.16.840.1.499180.3.579.2 .593 1962 Unknown [id number] 2.16.840.1.283719.3.579.2 .593 1962 Unknown [id number] 2.16.840.1.787354.3.579.2 .593 1962 Unknown [id number] 2.16.840.1.673020.3.579.2 .593 1962 Unknown [id number] 2.16.840.1.878223.3.579.2 .593 1962 Unknown [id number] 2.16.840.1.955908.3.579.2 .593 1962 Unknown [id number] 2.16.840.1.931598.3.579.2 .593 1962 Unknown [id number] 2.16.840.1.824328.3.579.2 .593 1962 Unknown [id number] 2.16.840.1.659663.3.579.2 .593 1962 Unknown [id number] 2.16.840.1.056072.3.579.2 .593 1962 Unknown [id number] 2.16.840.1.593367.3.579.2 .593 1962 Unknown [id number] 2.16.840.1.374783.3.579.2 .593 1962 Unknown [id number] 2.16.840.1.270860.3.579.2 .593 1962 Unknown [id number] 2.16.840.1.485666.3.579.2 .593 1962 Unknown [id number] 2.16.840.1.349826.3.579.2 .593 1962 Unknown [id number] 2.16.840.1.802837.3.579.2 .593 1962 Unknown [id number] 2.16.840.1.926058.3.579.2 .593 1962 Unknown [id number] 2.16.840.1.615846.3.579.2 .593 1962 Unknown [id number] 2.16.840.1.611515.3.579.2 .593 1962 Unknown [id number] 2.16.840.1.977203.3.579.2 .593 1962 Unknown [id number] 2.16.840.1.453676.3.579.2 .593 1962 Unknown [id number] 2.16.840.1.485664.3.579.2 .593 1962 Unknown [id number] 2.16.840.1.913259.3.579.2 .593 1962 Unknown [id number] 2.16.840.1.746816.3.579.2 .593 1962 Unknown [id number] 2.16.840.1.719453.3.579.2 .593 1962 Unknown [id number] 2.16.840.1.435050.3.579.2 .593 1962 Unknown [id number] 2.16.840.1.245196.3.579.2 .593 1962 Unknown [id number] 2.16.840.1.229261.3.579.2 .593 1962 Unknown [id number] 2.16.840.1.665812.3.579.2 .593 1962 Unknown [id number] 2.16.840.1.040909.3.579.2 .593 1962 Unknown [id number] 2.16.840.1.429125.3.579.2 .593 1962 Unknown [id number] 2.16.840.1.751495.3.579.2 .593 1962 Unknown [id number] 2.16.840.1.434806.3.579.2 .593 1962 Unknown [id number] 2.16.840.1.711755.3.579.2 .593 1962 Unknown [id number] 2.16.840.1.187511.3.579.2 .593 1962 Unknown [id number] 2.16.840.1.582169.3.579.2 .593 1962 Unknown [id number] 2.16.840.1.713922.3.579.2 .593 1962 Unknown [id number] 2.16.840.1.988405.3.579.2 .593 1962 Unknown [id number] 2.16.840.1.278537.3.579.2 .593 1962 Unknown [id number] 2.16.840.1.346670.3.579.2 .593 1962 Unknown [id number] 2.16.840.1.911625.3.579.2 .1259 1962 Unknown [id number] 2.16.840.1.759813.3.579.2 .1286 1962 Unknown [id number] 2.16.840.1.410590.3.579.2 .196 1962 Unknown [id number] 2.16.840.1.371492.3.579.2 .196 1962 Unknown [id number] 2.16.840.1.894689.3.579.2 .196 1962 Unknown [id number] 2.16.840.1.838517.3.579.2 .196 1962 Unknown [id number] 2.16.840.1.295715.3.579.2 .182 1962 Unknown [id number] 2.16.840.1.207758.3.579.2 .182 1962 Unknown [id number] 2.16.840.1.220932.3.579.2 .1286 1962 Unknown [id number] 2.16.840.1.641309.3.579.2 .1286 1959 Unknown [id number] 2.16.840.1.689343.19 1959 Unknown [id number] Medicare Medicare [id number] Self-pay Self Pay [id number] Worker's Compensation [id number] Worker's Compensation Cristofer [place] [id number] Social History Date Type Detail Facility Unknown if ever smoked [facility] [employer] Other Start: 11-11-2020 End: 06-13-2023 Sex Assigned At [facility] Start: 1960 Sex Assigned At Female F [facility] Start: 11-08-2022 End: 06-19-2025 Tobacco smoking status Ex-smoker (finding) [facility] Comment on above: smoked one year, souleymane t 30 years ago Tobacco smoking status Never [facility] Comment on above: smoked one year, souleymane t 30 years ago Start: 05-06-2015 End: 10-07-2024 Sex Female (finding) [facility] History of tobacco use Current [facility] History of tobacco use Cigarette Smoker [facility] Start: 06-13-2023 End: 03-25-2025 Alcoholic beverage intake Lifetime non-drinker (finding) [facility] Start: 11-11-2020 End: 06-13-2023 History of Social function [facility] Start: 05-30-2023 Alcohol Comment Caffeine: none [facility] Start: 1960 Sex assigned at Not on file N [facility] Start: 12-12-2024 End: 12-15-2024 SDOH Follow up SDOH Follow up [facility] Work Phone: Start: 12-07-2021 End: 12-01-2024 Tobacco use and exposure Smokeless tobacco non-user [employer] Start: 12-24-2024 End: 05-06-2025 Alcoholic beverage intake Ex-drinker (finding) [employer] Has the [employer], or water company threatened to shut off services in your home in past 12Mo No [employer] (I/We) worried wheth er (my/our) food would run out before (I/we) got money to buy more. Never true [employer] Start: 11-28-2024 Gender identity Identifies as female gender (finding) [employer] Start: 11-28-2024 Sexual orientation Heterosexual (fabian varsha) [employer] Medical Equipment Procedure Code Equipment Code Equipment Origin al Text Equipment Identifier Dates Arthroplasty, hip, total, anterior approach Acetabular shell [id number] FDA Start: 09-03-2023 Arthroplasty, hip, total, anterior approach Ceramic femoral head prosthesis ()[id number] FDA Start: 09-03-2023 Arthroplasty, hip, total, anterior approach Coated hip femur prosthesis, modular ()[id number] FDA Start: 09-03-2023 Arthroplasty, hip, total, anterior approach Non-constrained polyethylene acetabular liner ()[id number] FDA Start: 09-03-2023 Start: 02-13-2023 Goals Date Patient Goal Desired Activity /State Functional Status Date Assessment Result Facility 12-15-2024 Functional status Patient at Baseline [facility] Work Phone: 11-08-2022 Functional Status N/A [facility] Status Date Assessment Result Facility 12-15-2024 Cognitive function Cognitive Sta tus Patient at Baseline [facility] Work Phone: Clinical Notes 06-23-2021 to 05-29-2025 Ryann Arroyo MD - 05/06/2025 11:15 AM HAYDEETJun Lawson MD - 05/06/2025 11:15 AM EDT Note Date & Type Note Facility 05-29-2025 Nuclear medicine Diagnostic study note [facility] [place] [address] Nuclear Medicine Report Signed Patient: Nicol Smith MR#: [id number] : 1960 Acct:[id number] Age/Sex: 65 / F ADM Date: 5 Loc: [place] Room: Type: [facility] Attending Dr: Paulino Hughes MD Copies to: MD Anna Lott MD~ Ordering Provider: Paulino Hughes MD Date of Service: 05/29/25 SC/SC gastric emptying study: R13.10 GASTRIC EMPTYING STUDY: CLINICAL HISTORY: Dysphagia. History of paraesophageal hernia with repair. COMPARISON: CT 02/16/2025 and 03/02/2025. Esophagram 05/21/2025 Following the oral ingestion of 1.0 mCi Tc 99m labeled sulfur colloid mixed witheggs along with toast, typically and water, imaging of the abdomen was performedout to 4 hours. Patient's prior imaging shows a hiatal hernia. There is retained radioactive food debris within the hiatal hernia which is also includedwith the measurements of the intra-abdominal portion of the stomach. Gastric retention measurements are as follows: 30 minutes 86% 1 hour 83% 2 hours 82% 3 hours 80% 4 hours 79% SC/SC gastric emptying study IMPRESSION: HIATAL HERNIA. GASTROPARESIS. Impression dictated by: Anna Hull M.D. 05/29/2025 1:07 PM Dictation Location: [place] [address] Transcribed By: SILVIA 05/29/25 1307 Dictated By: Anna Hull MD 05/29/25 1301 Signed By: 05/29/25 1307 [facility] Work Phone: 05-06-2025 History of Present illness Narrative SUBJECTIVE HPI CHIEF COMPLAINT: follow up HPI: Nicol Smith, a 65 year old female, here today for follow up. She was last seen on 01/28/25 for urge incontinence, nocturnal enuresis, overactive bladder, and STI testing. During this visit she reported leakage of urine several times a day secondary to urge incontinence, along with nocturnal enuresis. She was started on Myrbetriq 50mg daily. Vaginal swab and gonorrhea and chlamydia were tested and came back negative. Since then the patient reports that the medication only slightly improved her symptoms. Was still experiencing the leakage of urine at night time, along with some symptoms of urgency and leakage of urine before making it to the restroom. She stopped taking the medication after 8 weeks and does not want to continue the medication d/t limited improvement of symptoms and expensive cost of the medication. REVIEW OF SYSTEMS: Review of Systems HENT: Negative. Respiratory: Negative. Cardiovascular: Negative. Gastrointestinal: Negative. Genitourinary: Positive for urgency. Negative for difficulty urinating, dysuria, frequency and hematuria. Neurological: Negative. Psychiatric/Behavioral: Negative. MEDICATIONS: Current Outpatient Medications: acetaminophen (TYLENOL ARTHRITIS) 650 mg 8 hr tablet, Take 1 tablet (650 mg total) by mouth every 8 (eight) hours as needed for pain., Disp: , Rfl: atorvastatin (LIPITOR) 20 mg tablet, , Disp: , Rfl: cholecalciferol, vitamin D3, 2,000 units tablet, Take 1 tablet (2,000 Units total) by mouth in the morning., Disp: , Rfl: ferrous sulfate 325 (65 FE) mg EC tablet, Take 1 tablet (325 mg total) by mouth., Disp: , Rfl: levothyroxine (SYNTHROID, LEVOTHROID) 75 MCG tablet, Take 1 tablet (75 mcg total) by mouth in the morning., Disp: , Rfl: magnesium oxide 400 mg magnesium capsule, daily., Disp: , Rfl: metoprolol tartrate (LOPRESSOR) 50 mg tablet, Take 1 tablet (50 mg total) by mouth in the morning., Disp: , Rfl: mirabegron (MYRBETRIQ) 50 mg tablet extended release 24 hr, Take 1 tablet (50 mg total) by mouth in the morning for 180 days., Disp: 30 tablet, Rfl: 5 omeprazole (PriLOSEC OTC) 20 mg EC tablet, Take 2 tablets (40 mg total) by mouth 2 (two) times daily at 0800 and 1500., Disp: , Rfl: ALLERGIES: Serotonin, Duloxetine, Metformin, and Penicillins Past Medical History: Diagnosis Date Fibromyalgia Hyperlipidemia Non-seasonal allergic rhinitis Obesity Osteoarthritis of spine with radiculopathy, cervical region Pre-diabetes Supraventricular tachycardia Past Surgical History: Procedure Laterality Date ANKLE FRACTURE SURGERY Left Lateral ANTERIOR AND POSTERIOR VAGINAL REPAIR CARPAL TUNNEL RELEASE HERNIA REPAIR 12/12/2024 hiatel surg HERNIA REPAIR 03/24/2025 REVISON INCONTINENCE SURGERY dialation TONSILLECTOMY TOTAL HIP ARTHROPLASTY Bilateral Family History Problem Relation Age of Onset Hypertension Mother Bone cancer Mother Diabetes Father Hypertension Daughter Lupus Daughter Hypertension Son Breast cancer Maternal Grandmother Diabetes Paternal Grandmother Diabetes Paternal Grandfather Social History Tobacco Use Smoking status: Former Smokeless tobacco: Never Substance Use Topics Alcohol use: Not Currently OBJECTIVE VITAL SIGNS BP 125/85 Pulse 77 Ht 170.2 cm (5' 7 ) Wt 117.9 kg (260 lb) BMI 40.72 kg/m PHYSICAL EXAM Constitutional: General: She is not in acute distress. Appearance: She is well-groomed. Cardiovascular: Rate: Normal rate. Lower extremity edema: none. Pulmonary: Effort: No respiratory distress, normal effort. Abdominal: General: There is no distension. Results for orders placed or performed in visit on 01/28/25 Measure post void residual Collection Time: 01/28/25 12:00 AM Result Value Ref Range Volume 177mL POCT urinalysis dipstick only Collection Time: 01/28/25 2:16 PM Result Value Ref Range External Poct Urine Color yellow External Poct Urine Appearance clear External Poct Urine Glucose Negative External Poct Urine Ketones Negative External Poct Urine Blood Negative External Poct Urine Ph 6 External Poct Urine Nitrite Negative External Poct Urine Leukocyte Esterase Moderate Urine Culture Collection Time: 01/28/25 2:17 PM Specimen: Urine, Clean Catch Midstream Result Value Ref Range CULTURE RESULTS 10-50,000 ORGANISMS/mL NORMAL UROGENITAL ELODIA Urinalysis Collection Time: 01/28/25 2:17 PM Specimen: Urine, Clean Catch Midstream Result Value Ref Range COLOR Yellow Yellow TURBIDITY Clear Clear SPECIFIC GRAVITY 1.021 1.003 - 1.035 NITRITE Negative Negative PH,URINE 6.0 5.0 - 8.5 LEUKOCYTE ESTERASE Large (A) Negative PROTEIN Negative Negative KETONES (URINE) Negative Negative UROBILINOGEN <1.1 eu/dL <1.1 eu/dL BILIRUBIN (URINE) Negative Negative BLOOD/HGB Negative Negative MUCOUS Present (A) None R.B.CELLS <1 0 - 5 SQUAMOUS EPITHELIUM 5 0 - 5 W.B.CELLS 6 (H) 0 - 5 GLUCOSE (URINE) Negative Negative Vaginitis Panel PCR Collection Time: 01/28/25 2:51 PM Specimen: Vagina; Swab Result Value Ref Range BACT. VAGINOSIS DNA Not Detected Not Detected FABIOLA SPECIES DNA Not Detected Not Detected FABIOLA KRUSEI DNA Not Detected Not Detected FABIOLA GLABRATA DNA Not Detected Not Detected TRICHOMONAS VAG DNA Not Detected Not Detected Chlamydia/GC by PCR Laurie Swab Collection Time: 01/28/25 2:51 PM Specimen: Endocervix; Swab Result Value Ref Range CHLAMYDIA DNA(PCR) Negative Negative GONORRHOEAE DNA(PCR) Negative Negative ASSESSMENT/PLAN ICD-10-CM 1. Nocturnal enuresis N39.44 2. OAB (overactive bladder) N32.81 3. Urge incontinence of urine N39.41 OAB, nocturnal enuresis, urge incontinence Patient did not have improvement of symptoms with myrbetriq 50mg daily. Trialed for 8 weeks before discontinuing. Reports the cost was too expensive for not having much improvement Discussed starting a different medication, solifenacin, the patient was not interested in trying another medication. Counseled on avoidance of bladder irritants and appropriate water intake. Encouraged to do routine pelvic floor muscle exercises. Elected to proceed with expectant management. F/u as needed for symptoms and annual care Ryann Arroyo MD 05/06/25 11:59 AM OBGYN, PGY-3 I attest that I have personally seen and examined this patient and participated in the critical/walker portions of the service. I was directly involved in the management and treatment plan of the patient. I have reviewed and agree with the resident's evaluation and plan and note as documented in the resident's note. Nicol presented 3 months ago for urge incontinence, nocturnal enuresis, overactive bladder, and STI testing. She was started on Myrbetriq 50mg daily. Vaginal swab and gonorrhea and chlamydia were tested and came back negative. She stopped the Myrbetriq after 2 months because it was ineffective and expensive. We discussed alternative options today including trial of anti muscarinic therapy or initiation of DDAVP. At this time, she is declining further pharmacological intervention. We discussed pelvic floor exercises and dietary and behavioral modification and she was provided literature regarding these topics. She will follow up on an as-needed basis. documented in this encounter [facility] 04-07-2025 Evaluation note Diagnosis Onset Date Resolution History of pyloroplasty acute J ector 2024 11:32am Lumbar stenosis acute April 07, 2025 11:32am Paraesophageal hiatal hernia acute April 07, 2025 11:32am S/P repair of paraesophageal hernia acute April 07, 2025 11:32am [facility] Work Phone: 1(302) 578-321207-08-2025 Evaluation note* Diagnosis Onset Date Resolution Status Admit Date History of pyloroplasty acute J ector 2024 11:32am Lumbar stenosis acute April 07, 2025 11:32am Paraesophageal hiatal hernia acute April 07, 2025 11:32am S/P repair of paraesophageal hernia acute April 07, 2025 1 1:32am Gastroesophageal reflux dise ase with stricture acute June 16, 2025 11:18am HERRERA (obstructive sleep apnea) acute June 16, 2025 11:18am Preoperative examination inactive June 16, 2025 11:18am [facility] Work Phone: 1(186) 319-586006-29-2025 Hospital course Narrative* Paulino Hughes MD - 03/29/2025 11:54 AM EDT Physician Discharge Summary Patient ID: Nicol Smith [id number] 64 y.o. 1960 Admit date: 03/24/2025 Discharge date and time: No discharge date for patient encounter. 03/29/2025 Admitting Physician: Paulino Hughes MD Discharge Physician: Same Admission Diagnoses: Paraesophageal hernia [K44.9] Discharge Diagnoses: Same Admission Condition: good Discharged Condition: good Indication for Admission: Surgery Hospital Course: Patient had an extremely symptomatic recurrent paraesophageal hernia. She was taken to the operating room for repair. Surgery was extremely difficult and required a laparotomy and extensive dissection to reduce the hernia. Because of the severity of the dissection around the hiatuswe opted to perform a pyloroplasty. Because of this she was kept n.p.o. for 4 days while everythinghealed. She was then started on liquid diet which she tolerated. By postoperative day 5 she was advanced to soft food which she was also tolerating without complaint. Patient was discharged to home. Consults: Hospitalist Significant Diagnostic Studies: None Treatments: surgery: Laparoscopic converted to open repair of recurrent paraesophageal hernia, pyloroplasty Discharge Exam: BP (!) 153/97 Pulse 86 Temp 97.7 F (36.5 C) (Oral) Resp 18 Ht 1.702 m (5' 7 ) Wt 130.3 kg(287 lb 4.2 oz) SpO2 99% BMI 44.99 kg/m General Appearance: Alert, cooperative, no distress, appears stated age Head: Normocephalic, without obvious abnormality, atraumatic Eyes: PERRL, conjunctiva/corneas clear, EOM's intact, fundi benign, both eyes Ears: Normal TM's and external ear canals, both ears Nose: Nares normal, septum midline, mucosa normal, no drainage or sinus tenderness Throat: Lips, mucosa, and tongue normal; teeth and gums normal Neck: Supple, symmetrical, trachea midline, no adenopathy; thyroid: no enlargement/tenderness/nodules; no carotid bruit or JVD Back: Symmetric, no curvature, ROM normal, no CVA tenderness Lungs: Clear to auscultation bilaterally, respirations unlabored Chest Wall: No tenderness or deformity Heart: Regular rate and rhythm, S1 and S2 normal, no murmur, rub or gallop Breast Exam: No tenderness, masses, or nipple abnormality Abdomen: Soft, non-tender, bowel sounds active all four quadrants, no masses, no organomegaly Genitalia: Normal female without lesion, discharge or tenderness Rectal: Normal tone ;guaiac negative stool Extremities: Extremities normal, atraumatic, no cyanosis or edema Pulses: 2+ and symmetric all extremities Skin: Skin color, texture, turgor normal, no rashes or lesions Lymph nodes: Cervical, supraclavicular, and axillary nodes normal Neurologic: CNII-XII intact, normal strength, sensation and reflexes throughout Disposition: home In process/preliminary results: Outstanding Order Results No orders found from 02/23/2025 to 03/25/2025. Patient Instructions: Current Discharge Medication List START taking these medications Details oxyCODONE-acetaminophen (PERCOCET) 5-325 MG per tablet Take 1 tablet by mouth every 6 hours as needed for Pain for up to 7 days. Max Daily Amount: 4 tablets Qty: 25 tablet, Refills: 0 Comments: Reduce doses taken as pain becomes manageable Associated Diagnoses: Paraesophageal hernia CONTINUE these medications which have NOT CHANGED Details cetirizine (ZYRTEC) 10 MG tablet Take 1 tablet by mouth daily omeprazole (PRILOSEC) 20 MG delayed release capsule Take 1 capsule by mouth daily Multiple Vitamins-Minerals (THERAPEUTIC MULTIVITAMIN-MINERALS) tablet Take 1 tablet by mouth daily COENZYME Q-10 PO Take 2 capsules by mouth daily vitamin B-12 (CYANOCOBALAMIN) 500 MCG tablet Take 1 tablet by mouth daily MYRBETRIQ 50 MG TB24 Take 50 mg by mouth every morning zonisamide (ZONEGRAN) 50 MG capsule TAKE 1 CAPSULE BY MOUTH AT BEDTIME FOR 7 DAYS then TAKE 1 CAPSULE BY MOUTH TWICE DAILY atorvastatin (LIPITOR) 20 MG tablet atorvastatin 20 mg tablet TAKE 1 TABLET BY MOUTH DAILY ferrous sulfate (FE TABS 325) 325 (65 Fe) MG EC tablet Take by mouth daily (with breakfast) levothyroxine (SYNTHROID) 75 MCG tablet Take 1 tablet by mouth every morning (before breakfast) metoprolol succinate (TOPROL XL) 50 MG extended release tablet TAKE 1 TABLET BY MOUTH IN THE MORNING; DO NOT CRUSH OR CHEW Cholecalciferol 50 MCG (2000 UT) TABS Take 1 tablet by mouth daily Magnesium Oxide -Mg Supplement 400 MG CAPS 1 capsule STOP taking these medications loratadine (CLARITIN REDITABS) 10 MG dissolvable tablet Comments: Reason for Stopping: Activity: no heavy lifting for 6 weeks Diet: Soft food and noncarbonated drinks Wound Care: as directed Follow-up with Dr. Hughes in 3 weeks. Signed: Dr. Hughes 03/29/2025 11:54 AM [facility] Dis[facility] instructions* Discharge Instructions* Paulino Hughes MD - 03/29/2025 11:54 AM EDT Eat very slowly and avoid nausea and vomiting. Soft food and noncarbonated drinks for 2 weeks. If feeling bloated after meals then decrease to liquids only for 2 weeks. Avoid any type of straining including constipation. May remove all surgical dressings and shower. No driving while taking Percocets. documented in [facility] History of Present illness Narrative* Paulino Hughes MD - 03/29/2025 11:51 AM EDT Patient doing well. She was advanced to soft food today and has tolerated breakfast without any complaints. She had a small amount of heartburn when she laid supine but that is her only complaint. Patient is ready for discharge. * Francisco Ramos MD - 03/29/2025 11:36 AM EDT INPATIENT PROGRESS NOTES PATIENT NAME: Nicol Smith SERVICE DATE: March 29, 2025 SERVICE TIME: 9:11 AM PRIMARY SERVICE: Pulmonary Disease CHIEF COMPLAIN: Paraesophageal hernia repair INTERVAL HPI: Patient seen and examined at bedside, Interval Notes, orders reviewed. Nursing notes noted Patient is comfortable in bed.. NG out. She is eating. She is currently on 2 L O2 via nasal And O2 saturation 99%. She denies having short of breath complain of dry mouth. No fever. OBJECTIVE I/O:24HR INTAKE/OUTPUT: Intake/Output Summary (Last 24 hours) at 03/29/2025 1136 Last data filed at 03/29/2025 0822 Gross per 24 hour Intake 2421.67 ml Output -- Net 2421.67 ml 03/28 0701 - 03/29 0700 In: 2181.7 [P.O.:780; I.V.:1401.7] Out: - Body mass index is 44.99 kg/m . PHYSICAL EXAM: Vitals: BP (!) 153/97 Pulse 86 Temp 97.7 F (36.5 C) (Oral) Resp 18 Ht 1.702 m (5' 7 ) Wt 130.3 kg(287 lb 4.2 oz) SpO2 99% BMI 44.99 kg/m General: Alert, awake .comfortable in bed, No distress. Head: Atraumatic , Normocephalic Eyes: PERRL. No sclera icterus. No conjunctival injection. No discharge ENT: No nasal discharge. Pharynx clear. NG in place Neck: Trachea midline. No thyromegaly, no JVD, No cervical adenopathy. Chest : bilaterally symmetrical ,Normal effort, No accessory muscle use Lung : Diminished breath sound bilaterally No Rales. No wheezing. No rhonchi. Heart:: Normal rate. Regular rhythm. No mumur , Rub or gallop ABD: Non-tender. Non-distended. No masses. No organmegaly. Normal bowel sounds. No hernia. Ext : No Pitting both leg , No Cyanosis No clubbing Neuro: no focal weakness Labs: CBC: Recent Labs 03/27/25 0645 03/28/25 0449 03/29/25 0453 WBC 6.9 6.3 7.7 HGB 13.4 12.6 12.6 HCT 41.6 37.2 37.4 PLT 259 260 283 BMP: Recent Labs 03/27/25 0645 03/28/259 03/29/25 0453 NA 142 141 140 K 3.8 3.7 3.7 CL 105 107 106 CO2 27 23 25 BUN 8 6* 7* CREATININE 0.66 0.53 0.54 GLUCOSE 112* 113* 106* CALCIUM 8.7 8.3* 8.9 PHOS 1.7* 2.1* 3.3 HEPATIC: No results for input(s): AST , ALT , BILITOT , ALKPHOS in the last 72 hours. Invalid input(s): ALB MV Settings: No results for input(s): PHART , FVS9UUI , PO2ART , YHT7UWN , BEART , T6VZWVJX in the last 72 hours. O2 Device: Nasal cannula O2 Flow Rate (L/min): 2 L/min MEDICATIONS during current hospitalization: Continuous Infusions: dextrose sodium chloride sodium chloride Stopped (03/25/25 1539) Scheduled Meds: insulin lispro 0-16 Units SubCUTAneous 4x Daily AC & HS levothyroxine 75 mcg Oral QAM AC trospium 20 mg Oral BID AC atorvastatin 20 mg Oral Nightly sodium chloride flush 5-40 mL IntraVENous 2 times per day sodium chloride flush 5-40 mL IntraVENous 2 times per day famotidine 20 mg Oral BID Or famotidine (PEPCID) injection 20 mg IntraVENous BID enoxaparin 30 mg SubCUTAneous BID metoprolol succinate 50 mg Oral Daily PRN Meds:oxyCODONE-acetaminophen, benzocaine, hydrALAZINE, glucose, dextrose bolus OR dextrose bolus, glucagon (rDNA), dextrose, naloxone 0.4 mg in 10 mL sodium chloride syringe, sodium chloride flush, sodium chloride, meperidine, fentanNYL, HYDROmorphone, ondansetron, metoclopramide, diphenhydrAMINE, sodium chloride flush, sodium chloride, ondansetron OR ondansetron, magnesium sulfate, potassium chloride, acetaminophen, ketorolac, haloperidol lactate Radiology Review: XR CHEST PORTABLE Result Date: 03/27/2025 EXAMINATION: ONE XRAY VIEW OF THE CHEST 03/27/2025 8:44 am COMPARISON: March 24, 2025 HISTORY: ORDERING SYSTEM PROVIDED HISTORY: chest tube removal TECHNOLOGIST PROVIDED HISTORY: Reason for exam:->chest tube removal What reading provider will be dictating this exam?->CRC FINDINGS: Small bilateral pleural effusions are seen with atelectasis. An NG tube is seen in place. The tip is below the freida phragm out of the field of view. Hernia is again seen on the right. A chest tube on the left has been removed. No large pneumothorax is seen. XR CHEST PORTABLE Result Date: 03/24/2025 EXAMINATION: ONE XRAY VIEW OF THE CHEST 03/24/2025 4:40 pm COMPARISON: None. HISTORY: ORDERING SYSTEM PROVIDED HISTORY: Chest tube placement TECHNOLOGIST PROVIDED HISTORY: Reason for exam:->Chest tube placement What reading provider will be dictating this exam?->CRC FINDINGS: NG tube side portbelow the GE junction, appropriate. Left chest wall tip projecting over the medial aspect of the left upper lung field. No pneumothorax. Mild cardiomegaly. Airspace consolidation within the left lungbase, may represent atelectasis or pneumonia. No pneumothorax or pleural fusions. 1. Support apparatus are appropriate. 2. Left lung base atelectasis versus pneumonia. IMPRESSION AND SUGGESTION: Recurrent paraesophageal hernia s/p repair which was converted to open with pyloroplasty Left basilar atelectasis Sleep apnea, on BiPAP at home She is currently on 2 L O2 via nasal cannula O2 saturation 99%. Titrated off FiO2. Continue O2 to keep saturation above 90%. NG was removed yesterday and started eating and she is doing okay. Likely discharge today. She said she will start using BiPAP therapy at home. Continue incentive spirometer.No pulmonary problem will sign off NOTE: This report was transcribed using voice recognition software. Every effort was made to ensureaccuracy; however, inadvertent computerized principal administrative clerk errors may be present. Comments: Thank you for allowing us to participate in the care of this patient. Will continue to follow.Please call if questions or concerns arise. * Jessica Wan MD - 03/29/2025 9:27 AM EDT Progress Note Date:03/29/2025 Room:[place] [id number]- Patient Name:Nicol Smith Date of :1960 Age:64 y.o. Subjective Subjective: Symptoms: She reports malaise. No shortness of breath, cough, chest pain, weakness, headache, chestpressure, anorexia, diarrhea or anxiety. Diet: No nausea or vomiting. Review of Systems Respiratory: Negative for cough and shortness of breath. Cardiovascular: Negative for chest pain. Gastrointestinal: Negative for anorexia, diarrhea, nausea and vomiting. Neurological: Negative for weakness. Objective Vitals Last 24 Hours: TEMPERATURE: Temp Av.8 F (36.6 C) Min: 97.3 F (36.3 C) Max: 98.1 F (36.7 C) RESPIRATIONS RANGE: Resp Av.4 Min: 18 Max: 20 PULSE OXIMETRY RANGE: SpO2 Av.8 % Min: 91 % Max: 99 % PULSE RANGE: Pulse Av.4 Min: 86 Max: 115 BLOOD PRESSURE RANGE: Systolic (24hrs), Av , Min:118 , Max:153 ; Diastolic (24hrs), Av, Min:74, Max:97 I/O (24Hr): Intake/Output Summary (Last 24 hours) at 03/29/2025 09 Last data filed at 03/29/2025 0626 Gross per 24 hour Intake 2181.67 ml Output -- Net 2181.67 ml Objective: General Appearance: In no acute distress. Vital signs: (most recent): Blood pressure (!) 153/97, pulse 86, temperature 97.7 F (36.5 C), temperature source Oral, resp. rate 18, height 1.702 m (5' 7 ), weight 130.3 kg (287 lb 4.2 oz), SpO2 99%. HEENT: Normal HEENT exam. Lungs: There are decreased breath sounds. Heart: S1 normal and S2 normal. Abdomen: Abdomen is soft. Bowel sounds are normal. There is no epigastric area tenderness. Extremities: Normal range of motion. Pulses: Distal pulses are intact. Neurological: Patient is alert. Pupils: Pupils are equal, round, and reactive to light. Skin: Warm. Labs/Imaging/Diagnostics Labs: CBC: Recent Labs 03/27/25 0645 03/28/25 0449 03/29/25 0453 WBC 6.9 6.3 7.7 RBC 4.49 4.12* 4.10* HGB 13.4 12.6 12.6 HCT 41.6 37.2 37.4 MCV 92.7 90.3 91.2 RDW 13.2 13.2 13.0 PLT 259 260 283 CHEMISTRIES: Recent Labs 03/27/25 0645 03/28/25 0449 03/29/25 0453 NA 142 141 140 K 3.8 3.7 3.7 CL 105 107 106 CO2 27 23 25 BUN 8 6* 7* CREATININE 0.66 0.53 0.54 GLUCOSE 112* 113* 106* PHOS 1.7* 2.1* 3.3 PT/INR:No results for input(s): PROTIME , INR in the last 72 hours. APTT:No results for input(s): APTT in the last 72 hours. LIVER PROFILE:No results for input(s): AST , ALT , BILIDIR , BILITOT , ALKPHOS in the last 72hours. Imaging Last 24 Hours: XR CHEST PORTABLE Result Date: 03/24/2025 EXAMINATION: ONE XRAY VIEW OF THE CHEST 03/24/2025 4:40 pm COMPARISON: None. HISTORY: ORDERING SYSTEM PROVIDED HISTORY: Chest tube placement TECHNOLOGIST PROVIDED HISTORY: Reason for exam:->Chest tube placement What reading provider will be dictating this exam?->CRC FINDINGS: NG tube side portbelow the GE junction, appropriate. Left chest wall tip projecting over the medial aspect of the left upper lung field. No pneumothorax. Mild cardiomegaly. Airspace consolidation within the left lungbase, may represent atelectasis or pneumonia. No pneumothorax or pleural fusions. 1. Support apparatus are appropriate. 2. Left lung base atelectasis versus pneumonia. Assessment//Plan Hospital Problems Last Modified POA * (Principal) Paraesophageal hernia 03/16/2025 Unknown 1) encounter for post surgical care 2) agitation( resolved) Not agitated today calm 3) HTN Home meds resumed but NPO IV hydralazine prn Spoke with bro 4) hypothyroidism Resume synthorid 5) hypoglycemia resolved Changed IVF to Dextros LR TCT 55min 03/28: Patient started on diet. No overnight events no new complaints. Continue current care. Pain is controlled. Denies any needs TCT 35 min 03/29: Patient was seen and evaluated. Patient would like to be discharge. Ambulating fine. No overnight events continue current care denies any needs. TCT 25 min Assessment & Plan * Katiuska Mota RN - 03/29/2025 7:59 AM EDT ASSOCIATE ARTISTIC DIRECTOR pump dc'd. 21 ml's of Dilaudid wasted w/ Tej RN. * Jessica Wan MD - 03/28/2025 1:21 PM EDT Progress Note Date:03/28/2025 Room:[place] [address] Patient Name:Nicol Smith Date of :1960 Age:64 y.o. Subjective Subjective: Symptoms: She reports malaise. No shortness of breath, cough, chest pain, weakness, headache, chestpressure, anorexia, diarrhea or anxiety. Diet: No nausea or vomiting. Review of Systems Respiratory: Negative for cough and shortness of breath. Cardiovascular: Negative for chest pain. Gastrointestinal: Negative for anorexia, diarrhea, nausea and vomiting. Neurological: Negative for weakness. Objective Vitals Last 24 Hours: TEMPERATURE: Temp Av.1 F (36.7 C) Min: 97.9 F (36.6 C) Max: 98.2 F (36.8 C) RESPIRATIONS RANGE: Resp Av.3 Min: 18 Max: 24 PULSE OXIMETRY RANGE: SpO2 Av.7 % Min: 90 % Max: 100 % PULSE RANGE: Pulse Av.8 Min: 87 Max: 96 BLOOD PRESSURE RANGE: Systolic (24hrs), Av , Min:131 , Max:162 ; Diastolic (24hrs), Av, Min:77, Max:93 I/O (24Hr): Intake/Output Summary (Last 24 hours) at 03/28/2025 1321 Last data filed at 03/28/2025 0615 Gross per 24 hour Intake 2214.29 ml Output 300 ml Net 1914.29 ml Objective: General Appearance: In no acute distress. Vital signs: (most recent): Blood pressure (!) 147/81, pulse 87, temperature 98.1 F (36.7 C), temperature source Oral, resp. rate 18, height 1.702 m (5' 7 ), weight 130.3 kg (287 lb 4.2 oz), SpO2 95%. HEENT: Normal HEENT exam. Lungs: There are decreased breath sounds. Heart: S1 normal and S2 normal. Abdomen: Abdomen is soft. Bowel sounds are normal. There is no epigastric area tenderness. Extremities: Normal range of motion. Pulses: Distal pulses are intact. Neurological: Patient is alert. Pupils: Pupils are equal, round, and reactive to light. Skin: Warm. Labs/Imaging/Diagnostics Labs: CBC: Recent Labs 03/26/25 0652 03/27/25 0645 03/28/25 0449 WBC 9.6 6.9 6.3 RBC 4.20 4.49 4.12* HGB 13.2 13.4 12.6 HCT 38.9 41.6 37.2 MCV 92.6 92.7 90.3 RDW 13.5 13.2 13.2 PLT 234 259 260 CHEMISTRIES: Recent Labs 03/26/25 0652 03/27/25 0645 03/28/25 0449 NA 139 142 141 K 3.8 3.8 3.7 CL 105 105 107 CO2 23 27 23 BUN 11 8 6* CREATININE 0.57 0.66 0.53 GLUCOSE 103* 112* 113* PHOS 1.3* 1.7* 2.1* PT/INR:No results for input(s): PROTIME , INR in the last 72 hours. APTT:No results for input(s): APTT in the last 72 hours. LIVER PROFILE:No results for input(s): AST , ALT , BILIDIR , BILITOT , ALKPHOS in the last 72hours. Imaging Last 24 Hours: XR CHEST PORTABLE Result Date: 03/24/2025 EXAMINATION: ONE XRAY VIEW OF THE CHEST 03/24/2025 4:40 pm COMPARISON: None. HISTORY: ORDERING SYSTEM PROVIDED HISTORY: Chest tube placement TECHNOLOGIST PROVIDED HISTORY: Reason for exam:->Chest tube placement What reading provider will be dictating this exam?->CRC FINDINGS: NG tube side portbelow the GE junction, appropriate. Left chest wall tip projecting over the medial aspect of the left upper lung field. No pneumothorax. Mild cardiomegaly. Airspace consolidation within the left lungbase, may represent atelectasis or pneumonia. No pneumothorax or pleural fusions. 1. Support apparatus are appropriate. 2. Left lung base atelectasis versus pneumonia. Assessment//Plan Hospital Problems Last Modified POA * (Principal) Paraesophageal hernia 03/16/2025 Unknown 1) encounter for post surgical care 2) agitation( resolved) Not agitated today calm 3) HTN Home meds resumed but NPO IV hydralazine prn Spoke with bro 4) hypothyroidism Resume synthorid 5) hypoglycemia resolved Changed IVF to Dextros LR TCT 55min 03/28: Patient started on diet. No overnight events no new complaints. Continue current care. Pain is controlled. Denies any needs TCT 35 min Assessment & Plan * Bell Rivas PTA - 03/28/2025 1:08 PM EDT Physical Therapy Med Surg Daily Treatment Note Facility/Department: [address] MED SURG UNIT Room: [facility] NAME: Nicol Smith : 1960 (64 y.o.) CODE STATUS: Full Code Date of Service: 03/28/2025 Patient Diagnosis(es): Paraesophageal hernia [K44.9] No chief complaint on file. Patient Active Problem List Diagnosis Date Noted Paraesophageal hernia 03/16/2025 Past Medical History: Diagnosis Date Hyperlipidemia Hypertension Thyroid disease Past Surgical History: Procedure Laterality Date CARPAL TUNNEL RELEASE Bilateral COLONOSCOPY ENDOSCOPY, COLON, DIAGNOSTIC FINGER TRIGGER RELEASE FOOT SURGERY Left GASTRIC FUNDOPLICATION N/A 03/24/2025 laparoscopic recurrent paraesopageal hernia repair Converted to Open; Pyloroplasty; Gastropexy performed by Paulino Hughes MD at [facility] OR JOINT REPLACEMENT Bilateral hip PARAESOPHAGEAL HERNIA REPAIR TONSILLECTOMY VEIN LIGATION Chart Reviewed: Yes Family/Caregiver Present: No Restrictions: Restrictions/Precautions: Fall Risk SUBJECTIVE: Subjective: Patient resting in bed. Agreeable to tx. Pain Patient c/o 12/08 abdominal pain- medicated with pain pump OBJECTIVE: Bed mobility Rolling to Left: Stand by assistance Rolling to Right: Stand by assistance Supine to Sit: Stand by assistance (HOB elevated at pt request due to nausea ) Sit to Supine: (HOB flat ) Bed Mobility Comments: HOB elevated; patient utilizes bed rail Transfers Stand to Sit: Stand by assistance;Supervision Bed to Chair: Stand by assistance;Supervision Comment: with st cane Ambulation Device: Single point cane Other Apparatus: O2 Assistance: Stand by assistance Quality of Gait: WBOS, mild antalgia, decreased gait speed, decreased left foot clearance Distance: 250 feet x2 ASSESSMENT Body Structures, Functions, Activity Limitations Requiring Skilled Therapeutic Intervention: Decreased functional mobility ;Decreased strength;Decreased safe awareness;Decreased balance;Increased pain Assessment: Patient demonstrates significant improvement in functional mobility since last session.She completes hallway ambulation at SBA level with st cane. Patient continues to require increased time and effort for bed mobility. Requires PT Follow-Up: Yes Discharge Recommendations: Continue to assess pending progress Goals French Translator Goals Longterm Goal 1: indep and efficient bed mobility French Translator Goal 2: indep sit to stand and bed to chair transfers Longterm Goal 3: indep gait with or without device 50 feet Longterm Goal 4: pt able to maintain standing with no assistance for 2 min or greater PLAN General Plan: 1 time a day 3-6 times a week Safety Devices Type of Devices: Call light within reach, Left in chair, Chair alarm in place (patient with ASSOCIATE ARTISTIC DIRECTOR following session) [facility] (6 CLICK) BASIC MOBILITY AM-PAC Inpatient Mobility Raw Score : 16 Therapy Time Individual Time In 1145 Time Out 1200 Minutes 15 Timed Code Treatment Minutes: 15 Minutes Gt 10 Tr Bell Rivas PTA, 03/28/25 at 1:10 PM Definitions for assistance levels Independent = pt does not require any physical supervision or assistance from another person for activity completion. Device may be needed. Stand by assistance = pt requires verbal cues or instructions from another person, close to but nottouching, to perform the activity Minimal assistance= pt performs 75% or more of the activity; assistance is required to complete theactivity Moderate assistance= pt performs 50% of the activity; assistance is required to complete the activity Maximal assistance = pt performs 25% of the activity; assistance is required to complete the activity Dependent = pt requires total physical assistance to accomplish the task Cosigned by Lashell Hsieh PT at 03/28/2025 2:14 PM EDT * Katiuska Mota RN - 03/28/2025 10:22 AM EDT NG tube removed. Pt tolerated well. * Paulino Hughes MD - 03/28/2025 9:58 AM EDT Remove NG and start PO liquids. If able to tolerate, then can add PO meds. Do not advance diet today. If all is good today, then can advance diet tomorrow and consider discharge . * Francisco Ramos MD - 03/28/2025 9:11 AM EDT INPATIENT PROGRESS NOTES PATIENT NAME: Nicol Smith SERVICE DATE: March 28, 2025 SERVICE TIME: 9:11 AM PRIMARY SERVICE: Pulmonary Disease CHIEF COMPLAIN: Paraesophageal hernia repair INTERVAL HPI: Patient seen and examined at bedside, Interval Notes, orders reviewed. Nursing notes noted Patient was seen earlier. Patient is comfortable in bed. Currently on 3 L O2 via nasal cannula O2 saturation 97%. She is n.p.o. NG in place. She is going to have NG removed today. Complain of throat is dry. She denies having short of breath complain of dry mouth. No fever. OBJECTIVE I/O:24HR INTAKE/OUTPUT: Intake/Output Summary (Last 24 hours) at 03/28/2025 1052 Last data filed at 03/28/2025 0615 Gross per 24 hour Intake 2214.29 ml Output 300 ml Net 1914.29 ml 03/27 0701 - 03/28 0700 In: 2214.3 [I.V.:2214.3] Out: 300 Body mass index is 44.99 kg/m . PHYSICAL EXAM: Vitals: BP (!) 147/81 Pulse 87 Temp 98.1 F (36.7 C) (Oral) Resp 18 Ht 1.702 m (5' 7 ) Wt 130.3 kg(287 lb 4.2 oz) SpO2 95% BMI 44.99 kg/m General: Alert, awake .comfortable in bed, No distress. Head: Atraumatic , Normocephalic Eyes: PERRL. No sclera icterus. No conjunctival injection. No discharge ENT: No nasal discharge. Pharynx clear. NG in place Neck: Trachea midline. No thyromegaly, no JVD, No cervical adenopathy. Chest : bilaterally symmetrical ,Normal effort, No accessory muscle use Lung : Diminished breath sound bilaterally No Rales. No wheezing. No rhonchi. Heart:: Normal rate. Regular rhythm. No mumur , Rub or gallop ABD: Non-tender. Non-distended. No masses. No organmegaly. Normal bowel sounds. No hernia. Ext : No Pitting both leg , No Cyanosis No clubbing Neuro: no focal weakness Labs: CBC: Recent Labs 03/26/25 0652 03/27/25 0645 03/28/25 0449 WBC 9.6 6.9 6.3 HGB 13.2 13.4 12.6 HCT 38.9 41.6 37.2 PLT 234 259 260 BMP: Recent Labs 03/26/25 0652 03/27/25 0645 03/28/25 0449 NA 139 142 141 K 3.8 3.8 3.7 CL 105 105 107 CO2 23 27 23 BUN 11 8 6* CREATININE 0.57 0.66 0.53 GLUCOSE 103* 112* 113* CALCIUM 8.4* 8.7 8.3* PHOS 1.3* 1.7* 2.1* HEPATIC: No results for input(s): AST , ALT , BILITOT , ALKPHOS in the last 72 hours. Invalid input(s): ALB MV Settings: No results for input(s): PHART , GPB2BQX , PO2ART , JTU4VWG , BEART , V5LYSTRC in the last 72 hours. O2 Device: Nasal cannula O2 Flow Rate (L/min): (DROPPED FROM 2l TO RA) MEDICATIONS during current hospitalization: Continuous Infusions: dextrose 5% in lactated ringers 50 mL/hr at 03/28/25 1022 dextrose sodium chloride sodium chloride Stopped (03/25/25 1539) HYDROmorphone Scheduled Meds: levothyroxine 75 mcg Oral QAM AC trospium 20 mg Oral BID AC atorvastatin 20 mg Oral Nightly insulin lispro 0-16 Units SubCUTAneous Q4H sodium chloride flush 5-40 mL IntraVENous 2 times per day sodium chloride flush 5-40 mL IntraVENous 2 times per day famotidine 20 mg Oral BID Or famotidine (PEPCID) injection 20 mg IntraVENous BID enoxaparin 30 mg SubCUTAneous BID metoprolol succinate 50 mg Oral Daily PRN Meds:benzocaine, hydrALAZINE, glucose, dextrose bolus OR dextrose bolus, glucagon (rDNA), dextrose, naloxone 0.4 mg in 10 mL sodium chloride syringe, sodium chloride flush, sodium chloride, meperidine, fentanNYL, HYDROmorphone, oxyCODONE, ondansetron, metoclopramide, diphenhydrAMINE, sodiumchloride flush, sodium chloride, ondansetron OR ondansetron, magnesium sulfate, potassium chloride, acetaminophen, naloxone 0.4 mg in 10 mL sodium chloride syringe, ketorolac, diphenhydrAMINE OR diphenhydrAMINE, bisacodyl, haloperidol lactate Radiology Review: XR CHEST PORTABLE Result Date: 03/27/2025 EXAMINATION: ONE XRAY VIEW OF THE CHEST 03/27/2025 8:44 am COMPARISON: March 24, 2025 HISTORY: ORDERING SYSTEM PROVIDED HISTORY: chest tube removal TECHNOLOGIST PROVIDED HISTORY: Reason for exam:->chest tube removal What reading provider will be dictating this exam?->CRC FINDINGS: Small bilateral pleural effusions are seen with atelectasis. An NG tube is seen in place. The tip is below the freida phragm out of the field of view. Hernia is again seen on the right. A chest tube on the left has been removed. No large pneumothorax is seen. XR CHEST PORTABLE Result Date: 03/24/2025 EXAMINATION: ONE XRAY VIEW OF THE CHEST 03/24/2025 4:40 pm COMPARISON: None. HISTORY: ORDERING SYSTEM PROVIDED HISTORY: Chest tube placement TECHNOLOGIST PROVIDED HISTORY: Reason for exam:->Chest tube placement What reading provider will be dictating this exam?->CRC FINDINGS: NG tube side portbelow the GE junction, appropriate. Left chest wall tip projecting over the medial aspect of the left upper lung field. No pneumothorax. Mild cardiomegaly. Airspace consolidation within the left lungbase, may represent atelectasis or pneumonia. No pneumothorax or pleural fusions. 1. Support apparatus are appropriate. 2. Left lung base atelectasis versus pneumonia. IMPRESSION AND SUGGESTION: Recurrent paraesophageal hernia s/p repair which was converted to open with pyloroplasty Left basilar atelectasis Sleep apnea, on BiPAP at home Continue O2 to keep saturation above 90%. She is n.p.o. NG in place. Chest tube removed today advise incentive spirometer. She states she has been on BiPAP for long time for sleep apnea at home. Likely she is going home soon so she does not want to get BiPAP from home. NOTE: This report was transcribed using voice recognition software. Every effort was made to ensureaccuracy; however, inadvertent computerized principal administrative clerk errors may be present. Comments: Thank you for allowing us to participate in the care of this patient. Will continue to follow.Please call if questions or concerns arise. * Jessica Wan MD - 03/27/2025 2:16 PM EDT Progress Note Date:03/27/2025 Room:[place] [address] Patient Name:Nicol Smith Date of :1960 Age:64 y.o. Subjective Subjective: Symptoms: She reports malaise. No shortness of breath, cough, chest pain, weakness, headache, chestpressure, anorexia, diarrhea or anxiety. Diet: No nausea or vomiting. Review of Systems Respiratory: Negative for cough and shortness of breath. Cardiovascular: Negative for chest pain. Gastrointestinal: Negative for anorexia, diarrhea, nausea and vomiting. Neurological: Negative for weakness. Objective Vitals Last 24 Hours: TEMPERATURE: Temp Av.2 F (36.8 C) Min: 97.9 F (36.6 C) Max: 98.6 F (37 C) RESPIRATIONS RANGE: Resp Av.8 Min: 15 Max: 27 PULSE OXIMETRY RANGE: SpO2 Av.3 % Min: 96 % Max: 98 % PULSE RANGE: Pulse Av.4 Min: 84 Max: 102 BLOOD PRESSURE RANGE: Systolic (24hrs), Av , Min:131 , Max:173 ; Diastolic (24hrs), Av, Min:63, Max:94 I/O (24Hr): Intake/Output Summary (Last 24 hours) at 03/27/2025 1416 Last data filed at 03/27/2025 0800 Gross per 24 hour Intake 2326.44 ml Output 100 ml Net 2226.44 ml Objective: General Appearance: In no acute distress. Vital signs: (most recent): Blood pressure (!) 153/86, pulse 86, temperature 97.9 F (36.6 C), temperature source Oral, resp. rate 15, height 1.702 m (5' 7 ), weight 130.3 kg (287 lb 4.2 oz), SpO2 97%. HEENT: Normal HEENT exam. Lungs: There are decreased breath sounds. Heart: S1 normal and S2 normal. Abdomen: Abdomen is soft. Bowel sounds are normal. There is no epigastric area tenderness. Extremities: Normal range of motion. Pulses: Distal pulses are intact. Neurological: Patient is alert. Pupils: Pupils are equal, round, and reactive to light. Skin: Warm. Labs/Imaging/Diagnostics Labs: CBC: Recent Labs 03/25/25 0449 03/26/25 0652 03/27/25 0645 WBC 12.2* 9.6 6.9 RBC 4.60 4.20 4.49 HGB 14.1 13.2 13.4 HCT 42.7 38.9 41.6 MCV 92.8 92.6 92.7 RDW 13.2 13.5 13.2 PLT 262 234 259 CHEMISTRIES: Recent Labs 03/25/25 1622 03/26/25 0652 03/27/25 0645 NA 141 139 142 K 5.0* 3.8 3.8 CL 105 105 105 CO2 BUN 11 11 8 CREATININE 0.68 0.57 0.66 GLUCOSE 131* 103* 112* PHOS -- 1.3* 1.7* PT/INR:No results for input(s): PROTIME , INR in the last 72 hours. APTT:No results for input(s): APTT in the last 72 hours. LIVER PROFILE:No results for input(s): AST , ALT , BILIDIR , BILITOT , ALKPHOS in the last 72hours. Imaging Last 24 Hours: XR CHEST PORTABLE Result Date: 03/24/2025 EXAMINATION: ONE XRAY VIEW OF THE CHEST 03/24/2025 4:40 pm COMPARISON: None. HISTORY: ORDERING SYSTEM PROVIDED HISTORY: Chest tube placement TECHNOLOGIST PROVIDED HISTORY: Reason for exam:->Chest tube placement What reading provider will be dictating this exam?->CRC FINDINGS: NG tube side portbelow the GE junction, appropriate. Left chest wall tip projecting over the medial aspect of the left upper lung field. No pneumothorax. Mild cardiomegaly. Airspace consolidation within the left lungbase, may represent atelectasis or pneumonia. No pneumothorax or pleural fusions. 1. Support apparatus are appropriate. 2. Left lung base atelectasis versus pneumonia. Assessment//Plan Hospital Problems Last Modified POA * (Principal) Paraesophageal hernia 03/16/2025 Unknown 1) encounter for post surgical care 2) agitation( resolved) Not agitated today calm 3) HTN Home meds resumed but NPO IV hydralazine prn Spoke with bro 4) hypothyroidism Resume synthorid 5) hypoglycemia resolved Changed IVF to Dextros LR TCT 55min Assessment & Plan * Francisco Ramos MD - 03/27/2025 1:06 PM EDT INPATIENT PROGRESS NOTES PATIENT NAME: Nicol Smith SERVICE DATE: March 27, 2025 SERVICE TIME: 1:06 PM PRIMARY SERVICE: Pulmonary Disease CHIEF COMPLAIN: Paraesophageal hernia repair INTERVAL HPI: Patient seen and examined at bedside, Interval Notes, orders reviewed. Nursing notes noted Patient is comfortable in bed. Currently on 3 L O2 via nasal cannula O2 saturation 97%. She is n.p.o. NG in place. She denies having short of breath complain of dry mouth. No fever. Chest tube removed today. OBJECTIVE I/O:24HR INTAKE/OUTPUT: Intake/Output Summary (Last 24 hours) at 03/27/2025 1306 Last data filed at 03/27/2025 0800 Gross per 24 hour Intake 2326.44 ml Output 100 ml Net 2226.44 ml 03/26 0701 - 03/27 0700 In: 2326.4 [I.V.:2316.4] Out: 100 Body mass index is 44.99 kg/m . PHYSICAL EXAM: Vitals: BP (!) 153/86 Pulse 86 Temp 97.9 F (36.6 C) (Oral) Resp 15 Ht 1.702 m (5' 7 ) Wt 130.3 kg(287 lb 4.2 oz) SpO2 97% BMI 44.99 kg/m General: Alert, awake .comfortable in bed, No distress. Head: Atraumatic , Normocephalic Eyes: PERRL. No sclera icterus. No conjunctival injection. No discharge ENT: No nasal discharge. Pharynx clear. NG in place Neck: Trachea midline. No thyromegaly, no JVD, No cervical adenopathy. Chest : bilaterally symmetrical ,Normal effort, No accessory muscle use Lung : Diminished breath sound bilaterally No Rales. No wheezing. No rhonchi. Heart:: Normal rate. Regular rhythm. No mumur , Rub or gallop ABD: Non-tender. Non-distended. No masses. No organmegaly. Normal bowel sounds. No hernia. Ext : No Pitting both leg , No Cyanosis No clubbing Neuro: no focal weakness Labs: CBC: Recent Labs 03/25/25 0449 03/26/25 0652 03/27/25 0645 WBC 12.2* 9.6 6.9 HGB 14.1 13.2 13.4 HCT 42.7 38.9 41.6 PLT 262 234 259 BMP: Recent Labs 03/25/25 1622 03/26/25 0652 03/27/25 0645 NA 141 139 142 K 5.0* 3.8 3.8 CL 105 105 105 CO2 BUN 11 11 8 CREATININE 0.68 0.57 0.66 GLUCOSE 131* 103* 112* CALCIUM 8.9 8.4* 8.7 PHOS -- 1.3* 1.7* HEPATIC: No results for input(s): AST , ALT , BILITOT , ALKPHOS in the last 72 hours. Invalid input(s): ALB MV Settings: No results for input(s): PHART , DNY7KXN , PO2ART , EEV6LOB , BEART , D5GLVMOF in the last 72 hours. O2 Device: Nasal cannula O2 Flow Rate (L/min): 3 L/min MEDICATIONS during current hospitalization: Continuous Infusions: dextrose 5% in lactated ringers 100 mL/hr at 03/27/25 0645 dextrose sodium chloride sodium chloride Stopped (03/25/25 1539) HYDROmorphone Scheduled Meds: levothyroxine 75 mcg Oral QAM AC trospium 20 mg Oral BID AC atorvastatin 20 mg Oral Nightly insulin lispro 0-16 Units SubCUTAneous Q4H sodium chloride flush 5-40 mL IntraVENous 2 times per day sodium chloride flush 5-40 mL IntraVENous 2 times per day famotidine 20 mg Oral BID Or famotidine (PEPCID) injection 20 mg IntraVENous BID enoxaparin 30 mg SubCUTAneous BID metoprolol succinate 50 mg Oral Daily PRN Meds:hydrALAZINE, glucose, dextrose bolus OR dextrose bolus, glucagon (rDNA), dextrose, naloxone 0.4 mg in 10 mL sodium chloride syringe, sodium chloride flush, sodium chloride, meperidine, fentanNYL, HYDROmorphone, oxyCODONE, ondansetron, metoclopramide, diphenhydrAMINE, sodium chloride flush, sodium chloride, ondansetron OR ondansetron, magnesium sulfate, potassium chloride, acetaminophen, naloxone 0.4 mg in 10 mL sodium chloride syringe, ketorolac, diphenhydrAMINE OR diphenhydrAMINE, bisacodyl, haloperidol lactate Radiology Review: XR CHEST PORTABLE Result Date: 03/27/2025 EXAMINATION: ONE XRAY VIEW OF THE CHEST 03/27/2025 8:44 am COMPARISON: March 24, 2025 HISTORY: ORDERING SYSTEM PROVIDED HISTORY: chest tube removal TECHNOLOGIST PROVIDED HISTORY: Reason for exam:->chest tube removal What reading provider will be dictating this exam?->CRC FINDINGS: Small bilateral pleural effusions are seen with atelectasis. An NG tube is seen in place. The tip is below the freida phragm out of the field of view. Hernia is again seen on the right. A chest tube on the left has been removed. No large pneumothorax is seen. XR CHEST PORTABLE Result Date: 03/24/2025 EXAMINATION: ONE XRAY VIEW OF THE CHEST 03/24/2025 4:40 pm COMPARISON: None. HISTORY: ORDERING SYSTEM PROVIDED HISTORY: Chest tube placement TECHNOLOGIST PROVIDED HISTORY: Reason for exam:->Chest tube placement What reading provider will be dictating this exam?->CRC FINDINGS: NG tube side portbelow the GE junction, appropriate. Left chest wall tip projecting over the medial aspect of the left upper lung field. No pneumothorax. Mild cardiomegaly. Airspace consolidation within the left lungbase, may represent atelectasis or pneumonia. No pneumothorax or pleural fusions. 1. Support apparatus are appropriate. 2. Left lung base atelectasis versus pneumonia. IMPRESSION AND SUGGESTION: Recurrent paraesophageal hernia s/p repair which was converted to open with pyloroplasty Left basilar atelectasis Sleep apnea, on BiPAP at home Continue O2 to keep saturation above 90%. Currently She is on 3 L O2 via nasal cannula. She is n.p.o. NG in place. Chest tube removed today advise incentive spirometer. She states she has been on BiPAP for long time for sleep apnea at home. Currently using O2. Likely she is going home soon so she does not want to get BiPAP from home. NOTE: This report was transcribed using voice recognition software. Every effort was made to ensureaccuracy; however, inadvertent computerized principal administrative clerk errors may be present. Comments: Thank you for allowing us to participate in the care of this patient. Will continue to follow.Please call if questions or concerns arise. * Norma Nino RN - 03/27/2025 11:55 AM EDT Patient assessment and vitals complete and per flowsheets. Patient doing well with NG tube, tolerating okay, no needs at this time. O2 because of ASSOCIATE ARTISTIC DIRECTOR pump, 95% on room air without it. ASSOCIATE ARTISTIC DIRECTOR pump managing pain well. No other needs at this time. * Paulino Hughes MD - 03/27/2025 8:54 AM EDT Patient still doing well with no complaints. Chest tube was removed. Will plan on removing nasogastric tube and starting oral liquids tomorrow. * Radha Fajardo OTA - 03/26/2025 3:50 PM EDT [facility] MED SURG TREATMENT NOTE Date: 03/26/2025 Patient Name: Nicol Smith Account: [id number] : 1960 (64 y.o.) Room: [place] [address] Chart Review: Restrictions Restrictions/Precautions Restrictions/Precautions: Fall Risk Safety: Safety Devices Type of Devices: Bed alarm in place;Call light within reach;Left in bed Patient's birthday verified: Yes Subjective: I know my legs are weak, but I am usually do things for myself. Pain at start of treatment: No Pain at end of treatment: No Objective: UE Strengthing: Pt engaged in the following BUE AROM exercises while long sitting in bed: Elbow Flexion/Extension: 1 sets x 10 reps Chest Press: 1 sets x 10 reps Shoulder Flexion: 1 sets x 10 reps Horizontal Abduction: 1 sets x 10 reps Supination/Pronation: 1 sets x 10 reps Wrist Flexion: 1 sets x 10 reps Wrist Extension: 1 sets x 10 reps Pt tolerated well with MIN rest breaks prn. Educated pt in exercise technique and provided cues to maintain prn. Pt requested to complete neck exercises. Pt engaged in the following neck exercises while long sitting in bed: Neck lateral flexion with hold at end range: 1 sets x 10 reps Neck rotation with hold at end range: 1 sets x 10 reps Pt tolerated well with MIN rest breaks prn. Educated pt in exercise technique and provided cues to maintain prn. Therapy walker for assistance levels - Independent/Mod I = Pt. is able to perform task with no assistance but may require a device Stand by assistance = Pt. does not perform task at an independent level but does not need physical assistance, requires verbal cues Minimal, Moderate, Maximal Assistance = Pt. requires physical assistance (25%, 50%, 75% assist fromhelper) for task but is able to actively participate in task Dependent = Pt. requires total assistance with task and is not able to actively participate with task completion Orientation Status: Orientation Overall Orientation Status: Within Normal Limits Orientation Level: Oriented X4 Observation: Observation/Palpation Observation: Pt resting in bed upon arrival. Pt alert and in no acute distress. IVs BUEs, drains. Cognition Status: Cognition Overall Cognitive Status: WNL GROSS ASSESSMENT AROM/PROM: AROM: Within functional limits UE STRENGTH: Strength: Generally decreased, functional Functional Endurance: Activity Tolerance Activity Tolerance: Patient limited by fatigue;Patient Tolerated treatment well Treatment consisted of: Therapeutic activities Assessment/Discharge Disposition: Pt tolerated treatment well. Pt worked at a steady pace to complete UB and neck exercises for strength and endurance. MIN rest breaks PRN. No significant concerns noted. Pt seems motivated to progress. Pt would benefit from continued Occupational Therapy to increase strength, activity tolerance, Mower with functional transfers, and Mower with ADL/IADL completion. [employer] How much help is needed for putting on and taking off regular lower body clothing?: A Lot How much help is needed for bathing (which includes washing, rinsing, drying)?: A Lot How much help is needed for toileting (which includes using toilet, bedpan, or urinal)?: A Lot How much help is needed for putting on and taking off regular upper body clothing?: A Little How much help is needed for taking care of personal grooming?: A Little How much help for eating meals?: None AM-PAC Inpatient Daily Activity Raw Score: 16 AM-PAC Inpatient ADL T-Scale Score : 35.96 ADL Inpatient CMS 0-100% Score: 53.32 ADL Inpatient CMS G-Code Modifier : CK Plan: Continue OT per POC Equipment recommendations: OT Equipment Recommendations Other: continue to assess Goals/Plan of care addressed during this session: Patient Goal: Patient goals : To decrease the pain Improve Strength and Improve Endurance Therapy Time: Individual Group Co-Treat Time In 1546 Time Out 1602 Minutes 16 Therapeutic activities: 16 minutes Electronically signed by: EVARISTO Ruiz 03/26/2025, 4:10 PM Cosigned by Krystal Smith OTR/L at 03/26/2025 4:24 PM EDT * Francisco Ramos MD - 03/26/2025 12:55 PM EDT INPATIENT PROGRESS NOTES PATIENT NAME: Nicol Smith SERVICE DATE: March 26, 2025 SERVICE TIME: 12:55 PM PRIMARY SERVICE: Pulmonary Disease CHIEF COMPLAIN: Paraesophageal hernia repair INTERVAL HPI: Patient seen and examined at bedside, Interval Notes, orders reviewed. Nursing notes noted Patient is comfortable in bed. Currently on 3 L O2 via nasal cannula O2 saturation 98%. She is n.p.o. NG in place. She denies having short of breath complain of dry mouth. No fever. Chest tube in place. OBJECTIVE I/O:24HR INTAKE/OUTPUT: Intake/Output Summary (Last 24 hours) at 03/26/2025 1255 Last data filed at 03/26/2025 0556 Gross per 24 hour Intake 773.21 ml Output 895 ml Net -121.79 ml 03/25 0701 - 03/26 0700 In: 2741.8 [I.V.:2741.8] Out: 895 [Urine:700] Body mass index is 44.99 kg/m . PHYSICAL EXAM: Vitals: BP 117/63 Pulse 86 Temp 97.9 F (36.6 C) (Oral) Resp 20 Ht 1.702 m (5' 7 ) Wt 130.3 kg (287 lb 4.2 oz) SpO2 98% BMI 44.99 kg/m General: Alert, awake .comfortable in bed, No distress. Head: Atraumatic , Normocephalic Eyes: PERRL. No sclera icterus. No conjunctival injection. No discharge ENT: No nasal discharge. Pharynx clear. NG in place Neck: Trachea midline. No thyromegaly, no JVD, No cervical adenopathy. Chest : Chest tube in place bilaterally symmetrical ,Normal effort, No accessory muscle use Lung : Diminished breath sound bilaterally No Rales. No wheezing. No rhonchi. Heart:: Normal rate. Regular rhythm. No mumur , Rub or gallop ABD: Non-tender. Non-distended. No masses. No organmegaly. Normal bowel sounds. No hernia. Ext : No Pitting both leg , No Cyanosis No clubbing Neuro: no focal weakness Labs: CBC: Recent Labs 03/24/25 1748 03/25/25 0449 03/26/25 0652 WBC 12.0* 12.2* 9.6 HGB 14.7 14.1 13.2 HCT 44.8 42.7 38.9 PLT 291 262 234 BMP: Recent Labs 03/25/25 0448 03/25/25 1622 03/26/25 0652 NA 141 141 139 K 5.0* 5.0* 3.8 CL 106 105 105 CO2 24 25 23 BUN 14 11 11 CREATININE 0.64 0.68 0.57 GLUCOSE 357* 131* 103* CALCIUM 8.6 8.9 8.4* PHOS -- -- 1.3* HEPATIC: No results for input(s): AST , ALT , BILITOT , ALKPHOS in the last 72 hours. Invalid input(s): ALB MV Settings: No results for input(s): PHART , GVF4QEZ , PO2ART , BEZ3DZT , BEART , I4VJUVXG in the last 72 hours. O2 Device: Nasal cannula O2 Flow Rate (L/min): 3 L/min MEDICATIONS during current hospitalization: Continuous Infusions: dextrose lactated ringers 75 mL/hr at 03/26/25 1153 sodium chloride sodium chloride Stopped (03/25/25 1539) HYDROmorphone Scheduled Meds: [START ON 03/27/2025] levothyroxine 75 mcg Oral QAM AC trospium 20 mg Oral BID AC atorvastatin 20 mg Oral Nightly insulin lispro 0-16 Units SubCUTAneous Q4H sodium chloride flush 5-40 mL IntraVENous 2 times per day sodium chloride flush 5-40 mL IntraVENous 2 times per day famotidine 20 mg Oral BID Or famotidine (PEPCID) injection 20 mg IntraVENous BID enoxaparin 30 mg SubCUTAneous BID metoprolol succinate 50 mg Oral Daily PRN Meds:hydrALAZINE, glucose, dextrose bolus OR dextrose bolus, glucagon (rDNA), dextrose, naloxone 0.4 mg in 10 mL sodium chloride syringe, sodium chloride flush, sodium chloride, meperidine, fentanNYL, HYDROmorphone, oxyCODONE, ondansetron, metoclopramide, diphenhydrAMINE, sodium chloride flush, sodium chloride, ondansetron OR ondansetron, magnesium sulfate, potassium chloride, acetaminophen, naloxone 0.4 mg in 10 mL sodium chloride syringe, ketorolac, diphenhydrAMINE OR diphenhydrAMINE, bisacodyl, haloperidol lactate Radiology Review: XR CHEST PORTABLE Result Date: 03/24/2025 EXAMINATION: ONE XRAY VIEW OF THE CHEST 03/24/2025 4:40 pm COMPARISON: None. HISTORY: ORDERING SYSTEM PROVIDED HISTORY: Chest tube placement TECHNOLOGIST PROVIDED HISTORY: Reason for exam:->Chest tube placement What reading provider will be dictating this exam?->CRC FINDINGS: NG tube side portbelow the GE junction, appropriate. Left chest wall tip projecting over the medial aspect of the left upper lung field. No pneumothorax. Mild cardiomegaly. Airspace consolidation within the left lungbase, may represent atelectasis or pneumonia. No pneumothorax or pleural fusions. 1. Support apparatus are appropriate. 2. Left lung base atelectasis versus pneumonia. IMPRESSION AND SUGGESTION: Recurrent paraesophageal hernia s/p repair which was converted to open with pyloroplasty Left basilar atelectasis Continue O2 to keep saturation above 90%. Currently She is on 3 L O2 via nasal cannula. She is n.p.o. NG in place. Chest tube in place. Advise incentive spirometer. Chest x-ray showed left basilar atelectasis. NOTE: This report was transcribed using voice recognition software. Every effort was made to ensureaccuracy; however, inadvertent computerized principal administrative clerk errors may be present. Comments: Thank you for allowing us to participate in the care of this patient. Will continue to follow.Please call if questions or concerns arise. * Paulino Hughes MD - 03/26/2025 12:04 PM EDT Patient is doing much better today. She looks better and feels better. She is not complaining of much pain. She denies any nausea. She has been able to ambulate in the halls. Continue NG suction. Will most likely remove the chest tube tomorrow. Possible removal of NG and starting p.o. liquids in 2 days. * Vanessa Girard, MANUFACTURING SPECIALIST - 03/26/2025 11:51 AM EDT Physical Therapy Med Surg Daily Treatment Note Facility/Department: [address] MED SURG UNIT [id number] NAME: Nicol Smith : 1960 (64 y.o.) CODE STATUS: Full Code Date of Service: 03/26/2025 Patient Diagnosis(es): Paraesophageal hernia [K44.9] No chief complaint on file. Patient Active Problem List Diagnosis Date Noted Paraesophageal hernia 03/16/2025 Past Medical History: Diagnosis Date Hyperlipidemia Hypertension Thyroid disease Past Surgical History: Procedure Laterality Date CARPAL TUNNEL RELEASE Bilateral COLONOSCOPY ENDOSCOPY, COLON, DIAGNOSTIC FINGER TRIGGER RELEASE FOOT SURGERY Left GASTRIC FUNDOPLICATION N/A 03/24/2025 laparoscopic recurrent paraesopageal hernia repair Converted to Open; Pyloroplasty; Gastropexy performed by Paulino Hughes MD at [facility] OR JOINT REPLACEMENT Bilateral hip PARAESOPHAGEAL HERNIA REPAIR TONSILLECTOMY VEIN LIGATION Restrictions: Restrictions/Precautions: Fall Risk SUBJECTIVE: I was walking this morning, walked with nursing Patient states she walked out in the hallway, agrees to therapy as able as she is fatigued. Pain /10 upper abdomen, 03/10 RN aware, ok for tx. OBJECTIVE: Transfers Stand to Sit: Stand by assistance Bed to Chair: Stand by assistance Comment: ww, cues for hand placement, good carryover Ambulation Device: Rolling Walker Other Apparatus: O2 (IV/drain tube) Assistance: Minimal assistance Quality of Gait: guarded, slow, wbos, mild unsteadiness Distance: 10 feet fwd and retro Neuromuscular Education Neuromuscular Comments: ft/fa/eo/ec/head turns without ue support, close sba/min a PT Exercises Exercise Treatment: seated ap/laq x10 for demo of understanding, encouraged patient to complete as able every hour while in chair ASSESSMENT Body Structures, Functions, Activity Limitations Requiring Skilled Therapeutic Intervention: Decreased functional mobility ;Decreased strength;Decreased safe awareness;Decreased balance;Increased pain Assessment: Patient with improvements to transfers and gait ability. Quick to fatigue and limited by pain. Patient completed seated and standing therex and balance tasks to improve all mobility. Continued skilled therapy would benefit patient to return to plof. Discharge Recommendations: Continue to assess pending progress Goals Longterm Goals French Translator Goal 1: indep and efficient bed mobility French Translator Goal 2: indep sit to stand and bed to chair transfers Longterm Goal 3: indep gait with or without device 50 feet Longterm Goal 4: pt able to maintain standing with no assistance for 2 min or greater PLAN General Plan: 1 time a day 3-6 times a week AMPAC (6 CLICK) BASIC MOBILITY AM-PAC Inpatient Mobility Raw Score : 15 Therapy Time Individual Time In 1050 Time Out 1107 Minutes 17 Gait 8 min Tf 6 min Balance 3 min Vanessa Girard PTA, 03/26/25 at 11:53 AM Definitions for assistance levels Independent = pt does not require any physical supervision or assistance from another person for activity completion. Device may be needed. Stand by assistance = pt requires verbal cues or instructions from another person, close to but nottouching, to perform the activity Minimal assistance= pt performs 75% or more of the activity; assistance is required to complete theactivity Moderate assistance= pt performs 50% of the activity; assistance is required to complete the activity Maximal assistance = pt performs 25% of the activity; assistance is required to complete the activity Dependent = pt requires total physical assistance to accomplish the task Cosigned by Deanna Collazo PT at 03/26/2025 12:57 PM EDT * Jessica Wan MD - 03/26/2025 10:37 AM EDT Progress Note Date:03/26/2025 Room:[place] [address] Patient Name:Nicol Smith Date of :1960 Age:64 y.o. Subjective Subjective: Symptoms: She reports malaise. No shortness of breath, cough, chest pain, weakness, headache, chestpressure, anorexia, diarrhea or anxiety. Diet: No nausea or vomiting. Review of Systems Respiratory: Negative for cough and shortness of breath. Cardiovascular: Negative for chest pain. Gastrointestinal: Negative for anorexia, diarrhea, nausea and vomiting. Neurological: Negative for weakness. Objective Vitals Last 24 Hours: TEMPERATURE: Temp Av.9 F (36.6 C) Min: 97.5 F (36.4 C) Max: 98.4 F (36.9 C) RESPIRATIONS RANGE: Resp Av.6 Min: 17 Max: 28 PULSE OXIMETRY RANGE: SpO2 Av.6 % Min: 91 % Max: 95 % PULSE RANGE: Pulse Av.8 Min: 70 Max: 102 BLOOD PRESSURE RANGE: Systolic (24hrs), Av , Min:123 , Max:168 ; Diastolic (24hrs), Av, Min:66, Max:88 I/O (24Hr): Intake/Output Summary (Last 24 hours) at 03/26/2025 1037 Last data filed at 03/26/2025 0556 Gross per 24 hour Intake 773.21 ml Output 895 ml Net -121.79 ml Objective: General Appearance: In no acute distress. Vital signs: (most recent): Blood pressure (!) 151/88, pulse 90, temperature 98.1 F (36.7 C), temperature source Axillary, resp. rate 17, height 1.702 m (5' 7 ), weight 130.3 kg (287 lb 4.2 oz), [id number]%. HEENT: Normal HEENT exam. Lungs: There are decreased breath sounds. Heart: S1 normal and S2 normal. Abdomen: Abdomen is soft. Bowel sounds are normal. There is no epigastric area tenderness. Extremities: Normal range of motion. Pulses: Distal pulses are intact. Neurological: Patient is alert. Pupils: Pupils are equal, round, and reactive to light. Skin: Warm. Labs/Imaging/Diagnostics Labs: CBC: Recent Labs 03/24/25 1748 03/25/25 0449 03/26/25 0652 WBC 12.0* 12.2* 9.6 RBC 4.82 4.60 4.20 HGB 14.7 14.1 13.2 HCT 44.8 42.7 38.9 MCV 92.9 92.8 92.6 RDW 13.2 13.2 13.5 PLT 291 262 234 CHEMISTRIES: Recent Labs 03/25/25 0448 03/25/25 1622 03/26/25 0652 NA 141 141 139 K 5.0* 5.0* 3.8 CL 106 105 105 CO2 24 25 23 BUN 14 11 11 CREATININE 0.64 0.68 0.57 GLUCOSE 357* 131* 103* PHOS -- -- 1.3* PT/INR:No results for input(s): PROTIME , INR in the last 72 hours. APTT:No results for input(s): APTT in the last 72 hours. LIVER PROFILE:No results for input(s): AST , ALT , BILIDIR , BILITOT , ALKPHOS in the last 72hours. Imaging Last 24 Hours: XR CHEST PORTABLE Result Date: 03/24/2025 EXAMINATION: ONE XRAY VIEW OF THE CHEST 03/24/2025 4:40 pm COMPARISON: None. HISTORY: ORDERING SYSTEM PROVIDED HISTORY: Chest tube placement TECHNOLOGIST PROVIDED HISTORY: Reason for exam:->Chest tube placement What reading provider will be dictating this exam?->CRC FINDINGS: NG tube side portbelow the GE junction, appropriate. Left chest wall tip projecting over the medial aspect of the left upper lung field. No pneumothorax. Mild cardiomegaly. Airspace consolidation within the left lungbase, may represent atelectasis or pneumonia. No pneumothorax or pleural fusions. 1. Support apparatus are appropriate. 2. Left lung base atelectasis versus pneumonia. Assessment//Plan Hospital Problems Last Modified POA * (Principal) Paraesophageal hernia 03/16/2025 Unknown 1) encounter for post surgical care 2) agitation( resolved) Not agitated today calm 3) HTN Home meds resumed but NPO IV hydralazine prn Spoke with bro 4) hypothyroidism Resume synthorid TCT 55min * Araceli Irizarry RN - 03/26/2025 5:55 AM EDT Overnight shift: 20 mL drained from chest tube. 0 mL out of NG tube (marked at 100mL from yesterday) Pt had 8 demands and 8 delivered through ASSOCIATE ARTISTIC DIRECTOR pump. * Araceli Irizarry RN - 03/25/2025 10:13 PM EDT Shift assessment completed and documented, see flowsheets. VSS on 3L NC. A&Ox4. Meds given per NOV. Pt using incentive spirometer. Pt has ASSOCIATE ARTISTIC DIRECTOR pump managing pain well. Tele monitor box #85. Chest tube on left side to -20 continuous suction. Dressing to chest tube and mid abd have breakthrough drainage. NG tube to right nare at 64cm. SBA to BSC tolerating well. Urinated 200mL of clear yellow urine. SCDs in place. Pt denies any needs at this time. Safety maintained. Call light within reach. * Jessica Wan MD - 03/25/2025 2:39 PM EDT Progress Note Date:03/25/2025 Room:[place] [address] Patient Name:Nicol Smith Date of :1960 Age:64 y.o. Subjective Subjective: Symptoms: She reports malaise. No shortness of breath, cough, chest pain, weakness, headache, chestpressure, anorexia, diarrhea or anxiety. Diet: No nausea or vomiting. Review of Systems Respiratory: Negative for cough and shortness of breath. Cardiovascular: Negative for chest pain. Gastrointestinal: Negative for anorexia, diarrhea, nausea and vomiting. Neurological: Negative for weakness. Objective Vitals Last 24 Hours: TEMPERATURE: Temp Av.8 F (36.6 C) Min: 97.6 F (36.4 C) Max: 98 F (36.7 C) RESPIRATIONS RANGE: Resp Av.2 Min: 11 Max: 31 PULSE OXIMETRY RANGE: SpO2 Av.1 % Min: 91 % Max: 98 % PULSE RANGE: Pulse Av.3 Min: 72 Max: 102 BLOOD PRESSURE RANGE: Systolic (24hrs), Av , Min:108 , Max:172 ; Diastolic (24hrs), Av, Min:54, Max:110 I/O (24Hr): Intake/Output Summary (Last 24 hours) at 03/25/2025 1439 Last data filed at 03/25/2025 1200 Gross per 24 hour Intake 2776.96 ml Output 1305 ml Net 1471.96 ml Objective: General Appearance: In no acute distress. Vital signs: (most recent): Blood pressure (!) 141/80, pulse 81, temperature 97.8 F (36.6 C), temperature source Oral, resp. rate 18, height 1.702 m (5' 7 ), weight 130.3 kg (287 lb 4.2 oz), SpO2 95%. HEENT: Normal HEENT exam. Lungs: There are decreased breath sounds. Heart: S1 normal and S2 normal. Abdomen: Abdomen is soft. Bowel sounds are normal. There is no epigastric area tenderness. Extremities: Normal range of motion. Pulses: Distal pulses are intact. Neurological: Patient is alert. Pupils: Pupils are equal, round, and reactive to light. Skin: Warm. Labs/Imaging/Diagnostics Labs: CBC: Recent Labs 03/24/25 1748 03/25/25 0449 WBC 12.0* 12.2* RBC 4.82 4.60 HGB 14.7 14.1 HCT 44.8 42.7 MCV 92.9 92.8 RDW 13.2 13.2 PLT 291 262 CHEMISTRIES: Recent Labs 03/24/25 1748 03/25/25 0448 NA 142 141 K 4.2 5.0* CL 106 106 CO2 21 24 BUN 17 14 CREATININE 0.87 0.64 GLUCOSE 235* 357* PT/INR:No results for input(s): PROTIME , INR in the last 72 hours. APTT:No results for input(s): APTT in the last 72 hours. LIVER PROFILE:No results for input(s): AST , ALT , BILIDIR , BILITOT , ALKPHOS in the last 72hours. Imaging Last 24 Hours: XR CHEST PORTABLE Result Date: 03/24/2025 EXAMINATION: ONE XRAY VIEW OF THE CHEST 03/24/2025 4:40 pm COMPARISON: None. HISTORY: ORDERING SYSTEM PROVIDED HISTORY: Chest tube placement TECHNOLOGIST PROVIDED HISTORY: Reason for exam:->Chest tube placement What reading provider will be dictating this exam?->CRC FINDINGS: NG tube side portbelow the GE junction, appropriate. Left chest wall tip projecting over the medial aspect of the left upper lung field. No pneumothorax. Mild cardiomegaly. Airspace consolidation within the left lungbase, may represent atelectasis or pneumonia. No pneumothorax or pleural fusions. 1. Support apparatus are appropriate. 2. Left lung base atelectasis versus pneumonia. Assessment//Plan Hospital Problems Last Modified POA * (Principal) Paraesophageal hernia 03/16/2025 Unknown 1) encounter for post surgical care 2) agitation Not agitated today calm 3) HTN Resume lopressor from tomorrow 4) hypothyroidism Resume synthorid Assessment & Plan * Taqueria Almendarez - 03/25/2025 12:41 PM EDT Spiritual Health History and Assessment/Progress Note [facility] [place] (P) Initial Encounter, , , Name: Nicol Smith Age: 64 y.o. Sex: female Language: Iranian Buddhism: Adventism Paraesophageal hernia Date: 03/25/2025 Total Time Calculated: (P) 15 min Spiritual Assessment began in [facility] ICU Referral/Consult From: (P) Rounding Encounter Overview/Reason: (P) Initial Encounter Service Provided For: (P) Patient Pt, resting and reports pain and discomfort at time of care encounter with patient. Pt, reports stable and supportive presence of family and active connection to Adventism brenda tradition. 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 Pt, alert, aware, receptive, and responsive to chaplains presence, care, concern for patients wellness and wellbeing. Brenda, Belief, Meaning: Patient is connected with a brenda tradition or spiritual practice and has beliefs or practices thathelp with coping during difficult times Family/Friends No family/friends present Importance and Influence: Patient has spiritual/personal beliefs that influence decisions regarding their health Family/Friends No family/friends present Community: Patient feels well-supported. Support system includes: Children Family/Friends No family/friends present Assessment and Plan of Care: Patient Interventions include: Facilitated expression of thoughts and feelings, Explored spiritual coping/struggle/distress, and Affirmed coping skills/support systems Family/Friends Interventions include: No family/friends present Patient Plan of Care: Spiritual Care available upon further referral Family/Friends Plan of Care: No family/friends present * Shannan Ha OTR/Dwain - 03/25/2025 12:03 PM EDT CANDICE B[facility]GER OCCUPATIONAL THERAPY EVALUATION - ACUTE NAME: Nicol Smith : 1960 (64 y.o.) CODE STATUS: Full Code [id number] Date of Service: 03/25/2025 Patient Diagnosis(es): Paraesophageal hernia [K44.9] Patient Active Problem List Diagnosis Date Noted Paraesophageal hernia 03/16/2025 Paraesophageal hernia Past Medical History: Diagnosis Date Hyperlipidemia Hypertension Thyroid disease Past Surgical History: Procedure Laterality Date CARPAL TUNNEL RELEASE Bilateral COLONOSCOPY ENDOSCOPY, COLON, DIAGNOSTIC FINGER TRIGGER RELEASE FOOT SURGERY Left GASTRIC FUNDOPLICATION N/A 03/24/2025 laparoscopic recurrent paraesopageal hernia repair Converted to Open; Pyloroplasty; Gastropexy performed by Paulino Hughes MD at [facility] OR JOINT REPLACEMENT Bilateral hip PARAESOPHAGEAL HERNIA REPAIR TONSILLECTOMY VEIN LIGATION Restrictions Restrictions/Precautions: Fall Risk Safety Devices: Treatment Diagnosis: Decreased Activities of Daily Living Z73.6 Patient's date of confirmed: Yes General: Chart Reviewed: Yes Subjective Pt c/o of nausea throughout eval and nsg alerted. Pt provided with nausea bucket. Nausea meds provided to pt at end of session Pain at start of treatment: Yes: 2/10 Pain with movement and standing: Yes 10/10 Pain at end of treatment: Yes: 3/10 Location: R upper abdomen Description: slicing pain Nursing notified: Yes RN: Alexx Intervention: Repositioned Prior Level of Function: Social/Functional History Lives With: Alone Type of Home: House Home Layout: One level, Work area in basement, Laundry in basement Home Access: Stairs to enter with rails Entrance Stairs - Number of Steps: 5 Entrance Stairs - Rails: Both Bathroom Shower/Tub: Tub/Shower unit Bathroom Equipment: Tub transfer bench, Grab bars in shower, Hand-held shower Home Equipment: Rollator, Cane, Lift chair, Wheelchair - Manual, Senior Product Analyst, Sock aid (uses rollator for carrying heavy items and walking in the yard) Has the patient had two or more falls in the past year or any fall with injury in the past year?: No Prior Level of Assist for ADLs: Independent Prior Level of Assist for Homemaking: Independent Prior Level of Assist for Ambulation: Independent household ambulator, with or without device (no device) Prior Level of Assist for Transfers: Independent Active Events Assistant: Yes Occupation: Retired Additional Comments: right handed OBJECTIVE: Orientation Status: Orientation Overall Orientation Status: Within Normal Limits Observation: Observation/Palpation Observation: alert, oriented, nausea, IVs BUEs, drains Cognition Status: Cognition Overall Cognitive Status: WNL Perception Status: Perception Overall Perceptual Status: WFL Vision and Hearing Status: Vision Vision: Impaired Vision Exceptions: Wears glasses at all times Hearing Hearing: Within functional limits GROSS ASSESSMENT AROM/PROM: AROM: Generally decreased, functional PROM: Generally decreased, functional ROM: LUE AROM (degrees) LUE AROM : WFL RUE AROM (degrees) RUE AROM : WFL UE STRENGTH: Strength: Generally decreased, functional UE COORDINATION: Coordination: Within functional limits UE TONE: Tone: Normal UE SENSATION: Sensation: Impaired (numbness to B feet and hands) Hand Dominance: Hand Dominance Hand Dominance: Right ADL Status: ADL Feeding: Setup Grooming: Setup Grooming Skilled Clinical Factors: seated UE Bathing: Moderate assistance LE Bathing: Maximum assistance UE Dressing: Maximum assistance LE Dressing: Maximum assistance Putting On/Taking Off Footwear: Maximum assistance Toileting: Unable to assess (Comment) Toileting Skilled Clinical Factors: purwick in place Functional Mobility: Moderate assistance Toilet Transfers Toilet Transfer: Unable to assess Toilet Transfers Comments: purwick in place, limited d/t drains Functional Mobility: Transfers Sit to stand: Minimal assistance, 2 Person assistance Stand to sit: Minimal assistance, 2 Person assistance Transfer Comments: 2 person assistance to manange lines Patient ambulated to head of bed with Handheld assist at Min A level. 2 person assistance. Bed Mobility Supine to Sit: Partial/Moderate assistance; 2 person assistance Sit to Supine: Partial/Moderate assistance; 2 person assistance Scooting: Minimal assistance Bed mobility comments: 2 person assist to manage lines Seated and Standing Balance: Balance Sitting: Impaired Sitting - Static: Good (unsupported) Sitting - Dynamic: Good (unsupported) Standing: Impaired Standing - Static: Constant support Standing - Dynamic: Constant support Functional Endurance: Activity Tolerance Activity Tolerance: Patient limited by pain D/C Recommendations: OT D/C RECOMMENDATIONS REQUIRES OT FOLLOW-UP: Yes Equipment Recommendations: OT Equipment Recommendations Other: continue to assess OT Education: Patient Education Education Given To: Patient Education Provided: Role of Therapy;Plan of Care;Transfer Training Education Method: Verbal;Demonstration Barriers to Learning: None Education Outcome: Verbalized understanding;Demonstrated understanding OT Follow Up: OT D/C RECOMMENDATIONS REQUIRES OT FOLLOW-UP: Yes Assessment/Discharge Disposition: Assessment: Pt is a 64 y/o female, recently admitted to [facility] s/ surgical repair of paraesophagealhernia. 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 Pt currently presents with the above deficits and may benefit from OT intervention for increased IND and safety with ADLs, IADLs, and functional transfers. Performance deficits / Impairments: Decreased functional mobility , Decreased ADL status, Decreasedstrength, Decreased sensation, Decreased high-level IADLs, Decreased endurance, Decreased vision/visual deficit, Decreased balance Prognosis: Fair Discharge Recommendations: Continue to assess pending progress Decision Making: Medium Complexity History: 13 comorbidities Exam: 8 deficits Assistance / Modification: MIN-MAX A x 2 AMPAC (Six Click) Self care Score How much help is needed for putting on and taking off regular lower body clothing?: Total How much help is needed for bathing (which includes washing, rinsing, drying)?: A Lot How much help is needed for toileting (which includes using toilet, bedpan, or urinal)?: A Lot How much help is needed for putting on and taking off regular upper body clothing?: A Lot How much help is needed for taking care of personal grooming?: A Little How much help for eating meals?: A Little [facility] Inpatient Daily Activity Raw Score: 13 [facility] Inpatient ADL T-Scale Score : 32.03 ADL Inpatient CMS 0-100% Score: 63.03 Therapy walker for assistance levels - Independent/Mod I = Pt. is able to perform task with no assistance but may require a device Stand by assistance = Pt. does not perform task at an independent level but does not need physical assistance, requires verbal cues Minimal, Moderate, Maximal Assistance = Pt. requires physical assistance (25%, 50%, 75% assist fromhelper) for task but is able to actively participate in task Dependent = Pt. requires total assistance with task and is not able to actively participate with task completion Plan: Occupational Therapy Plan Times Per Week: 1-4x/week Therapy Duration: (acute LOS) Current Treatment Recommendations: Strengthening, Balance training, Functional mobility training, Endurance training, Pain management, Safety education & training, Patient/Caregiver education & training, Self-Care / ADL, Home management training, Equipment evaluation, education, & procurement Goals: Patient will: - Improve functional endurance to tolerate/complete 30 mins of ADL's - Be MOD I in UB ADLs - Be MOD I in LB ADLs - Be MOD I in ADL transfers without LOB - Be MOD I in toileting tasks - Improve B UE strength and endurance to WFL in order to participate in self- care activities as projected. Patient Goal: Patient goals : To decrease the pain Discussed and agreed upon: Yes Comments: Therapy Time: Individual Time In 1130 Time Out 1155 Minutes 25 Eval: 25 minutes Electronically signed by: AISHA Giraldo, 03/25/2025, 12:11 PM * Genny Slater, PT - 03/25/2025 11:53 AM EDT Physical Therapy Med Surg Initial Assessment Facility/Department: [facility] ICU Room: [place] [address] NAME: Nicol Smith : 1960 (64 y.o.) CODE STATUS: Full Code Date of Service: 03/25/2025 Patient Diagnosis(es): Paraesophageal hernia [K44.9] No chief complaint on file. Patient Active Problem List Diagnosis Date Noted Paraesophageal hernia 03/16/2025 Past Medical History: Diagnosis Date Hyperlipidemia Hypertension Thyroid disease Past Surgical History: Procedure Laterality Date CARPAL TUNNEL RELEASE Bilateral COLONOSCOPY ENDOSCOPY, COLON, DIAGNOSTIC FINGER TRIGGER RELEASE FOOT SURGERY Left GASTRIC FUNDOPLICATION N/A 03/24/2025 laparoscopic recurrent paraesopageal hernia repair Converted to Open; Pyloroplasty; Gastropexy performed by Paulino Hughes MD at [facility] OR JOINT REPLACEMENT Bilateral hip PARAESOPHAGEAL HERNIA REPAIR TONSILLECTOMY VEIN LIGATION Chart Reviewed: Yes Family/Caregiver Present: No Restrictions: Restrictions/Precautions: Fall Risk SUBJECTIVE: Pain Pain Pre-Pain: 2 (at rest) Post-Pain: 3 (at rest) Pain Descriptor: Aching;Sharp Pain Interventions: Nurse notified Pt reports pain in abdomen at a 10/10 during bed mobility and standing activities Prior Level of Function: Social/Functional History Lives With: Alone Type of Home: House Home Layout: One level, Work area in basement, Laundry in basement Home Access: Stairs to enter with rails Entrance Stairs - Number of Steps: 5 Entrance Stairs - Rails: Both Bathroom Shower/Tub: Tub/Shower unit Bathroom Equipment: Tub transfer bench, Grab bars in shower, Hand-held shower Home Equipment: Rollator, Cane, Lift chair, Wheelchair - Manual, Senior Product Analyst, Sock aid (uses rollator for carrying heavy items and walking in the yard) Has the patient had two or more falls in the past year or any fall with injury in the past year?: No Prior Level of Assist for ADLs: Independent Prior Level of Assist for Homemaking: Independent Prior Level of Assist for Ambulation: Independent household ambulator, with or without device (no device) Prior Level of Assist for Transfers: Independent Active Events Assistant: Yes Occupation: Retired Additional Comments: right handed OBJECTIVE: Vision Vision: Impaired Vision Exceptions: Wears glasses at all times Hearing: Within functional limits Cognition: Overall Orientation Status: Within Normal Limits Follows Commands: Within Functional Limits Overall Cognitive Status: WNL ROM: AROM: Within functional limits PROM: Within functional limits Strength: Strength: Generally decreased, functional Neuro: Balance Sitting - Static: Good Sitting - Dynamic: Fair (no LOB with reaching 2 inches - limited by abdom pain) Standing - Static: Fair;- (pt able to stand 2 min with contact cues for balance maintenance) Standing - Dynamic: Fair;- (mild LOB requiring assistance for correction) Coordination: Generally decreased, functional Bed mobility Rolling to Left: Stand by assistance Rolling to Right: Stand by assistance Supine to Sit: Partial/Moderate assistance;2 Person assistance HOB elevated at pt request due to nausea Sit to Supine: Partial/Moderate assistance;2 Person assistance HOB flat Bed Mobility Comments: second person required for management lines in ICU setting Transfers Sit to Stand: Minimal Assistance;2 Person Assistance (steadying assist in addition to second personmanaging lines) Stand to Sit: Minimal Assistance Ambulation Device: No Device Other Apparatus: O2 Assistance: Minimal assistance Quality of Gait: good hip and knee stability, lat LOB with delayed reactions - steadying assist only required Distance: 4 steps lat - limited by lines and pt pain Activity Tolerance Activity Tolerance: Patient tolerated evaluation without incident;Patient limited by pain;Patient limited by endurance Patient Education Education Given To: Patient Education Provided: Role of Therapy;Plan of Care Education Method: Verbal Education Outcome: Verbalized understanding;Continued education needed ASSESSMENT: Body Structures, Functions, Activity Limitations Requiring Skilled Therapeutic Intervention: Decreased functional mobility ;Decreased strength;Decreased safe awareness;Decreased balance;Increased pain Decision Making: Medium Complexity History: high Exam: med Clinical Presentation: med Barriers to Learning: pain/nausea DISCHARGE RECOMMENDATIONS: Discharge Recommendations: Continue to assess pending progress Assessment: Pt demonstrates deficits as listed. She is requiring assistance with mobility at this time. Pt is in need of continued PT Requires PT Follow-Up: Yes PLAN OF CARE: Physical Therapy Plan General Plan: 1 time a day 3-6 times a week Current Treatment Recommendations: Balance training, Functional mobility training, Transfer training, Gait training, Stair training, Neuromuscular re- education, Safety education & training, Patient/Caregiver education & training, Equipment evaluation, education, & procurement Safety Devices Type of Devices: Bed alarm in place, Call light within reach, Left in bed Goals: Longterm Goals Longterm Goal 1: indep and efficient bed mobility Longterm Goal 2: indep sit to stand and bed to chair transfers Longterm Goal 3: indep gait with or without device 50 feet Longterm Goal 4: pt able to maintain standing with no assistance for 2 min or greater AMPAC (6 CLICK) BASIC MOBILITY [facility] Inpatient Mobility Raw Score : 11 Therapy Time: Individual Time In 1130 Time Out 1155 Minutes Genny Slater PT, 03/25/25 at 1:08 PM Definitions for assistance levels Independent = pt does not require any physical supervision or assistance from another person for activity completion. Device may be needed. Stand by assistance = pt requires verbal cues or instructions from another person, close to but nottouching, to perform the activity Minimal assistance= pt performs 75% or more of the activity; assistance is required to complete theactivity Moderate assistance= pt performs 50% of the activity; assistance is required to complete the activity Maximal assistance = pt performs 25% of the activity; assistance is required to complete the activity Dependent = pt requires total physical assistance to accomplish the task * Paulino Hughes MD - 03/25/2025 11:41 AM EDT Pt stable overnight. Pain, as expected. OK for transfer to floor. Still NPO for at least 2 more days. Keep chest tube. OK to ambulate as able. * Ashley Pete [facility] - 03/25/2025 11:22 AM EDT PHARMACY NOTE: ICU Rounds Attended (10-15 minutes in patient room): Pt diagnosis: paraesophageal hernia IV Fluids: D5/LR @ 125 Renal: Recent Labs 03/24/25 1748 03/25/25 0448 CREATININE 0.87 0.64 Estimated Creatinine Clearance: 128 mL/min (based on SCr of 0.64 mg/dL). Antimicrobial Therapy: none Recent Labs 03/24/25 1748 03/25/25 0449 WBC 12.0* 12.2* Insulin Therapy (goal: 140-180): added below Recent Labs 03/24/25 1748 03/25/25 0448 GLUCOSE 235* 357* Steroid Therapy: none Stress Ulcer Prophylaxis: Famotidine BID On at home: omeprazolee DVT Prophylaxis/Anticoagulant Therapy: lovenox 30mg BID Recent Labs 03/24/25 1748 03/25/25 0449 PLT 291 262 No results for input(s): INR in the last 72 hours. Bowel Regimen: Bis prn Follow up/Changes: -add high SSI per verbal -follow up resume home meds NPO: zonisamide, levothyroxine -change IVF to LR @ 100 cc/hr per verbal on rounds Ashley Pete [facility], PharmD 03/25/2025 11:18 AM * Joelle Blood MD - 03/25/2025 8:59 AM EDT Critical Care Progress Note 03/25/2025 8:59 AM Subjective: Admit Date: 03/24/2025 PCP: Waqas Pierce MD No chief complaint on file. Interval History: Has been doing relatively well with the exception of pain. Has a [employer] pump. Continues to be NPO. Has chest tube. Urine output decent. 14 points review of systems has been obtained and negative except to was mentioned in HPI. Medications: Scheduled Meds: sodium chloride flush 5-40 mL IntraVENous 2 times per day sodium chloride flush 5-40 mL IntraVENous 2 times per day famotidine 20 mg Oral BID Or famotidine (PEPCID) injection 20 mg IntraVENous BID enoxaparin 30 mg SubCUTAneous BID metoprolol succinate 50 mg Oral Daily Continuous Infusions: sodium chloride sodium chloride 20 mL/hr at 03/25/25 0721 dextrose 5% in lactated ringers 125 mL/hr at 03/25/25 0721 HYDROmorphone Objective: Vitals: Temp (24hrs), Av.8 F (36.6 C), Min:97.5 F (36.4 C), Max:98 F (36.7 C) BP 126/71 Pulse 72 Temp 98 F (36.7 C) (Oral) Resp 13 Ht 1.702 m (5' 7 ) Wt 130.3 kg (287 lb 4.2 oz) SpO2 94% BMI 44.99 kg/m I/O:24HR INTAKE/OUTPUT: Intake/Output Summary (Last 24 hours) at 03/25/2025 0859 Last data filed at 03/25/2025 0721 Gross per 24 hour Intake 4276.96 ml Output 1305 ml Net 2971.96 ml Physical Exam: General appearance - ill appearing. Mental status - alert, oriented to person, place, and time Eyes - pupils equal and reactive Nose - normal and patent, no erythema, discharge or polyps Neck - supple, no significant adenopathy Chest - clear to auscultation, no wheezes, rales or rhonchi. Chest tube in place Heart - normal rate, regular rhythm, normal S1, S2 Abdomen - soft, nontender, nondistended Rectal - deferred, not clinically indicated Neurological - alert, oriented, normal speech, no focal findings Musculoskeletal - no joint tenderness, deformity or swelling Extremities - peripheral pulses normal, no pedal edema Skin - normal coloration and turgor, no rashes BMP: Recent Labs 03/24/25 1748 03/25/25 0448 NA 142 141 K 4.2 5.0* CL 106 106 CO2 21 24 BUN 17 14 CREATININE 0.87 0.64 GLUCOSE 235* 357* . M,PHOS:3)@ Ionized Calcium: No components found for: IONCA CBC: Recent Labs 03/24/25 1748 03/25/25 0449 WBC 12.0* 12.2* HGB 14.7 14.1 PLT 291 262 ABG: No results for input(s): PH , PCO2 , PO2 in the last 72 hours. Assessment and Plan: Impression: - Recurrent paraesophageal hernia s/p repair which was converted to open with pyloroplasty. Postop day #1 - HTN -Mild hyperkalemia. -Hyperglycemia. - Postoperative pain. Recommendations: - Continue care in ICU for hemodynamic and neuromonitoring. -Pain control. With [employer]OR pump. -Vasopressors on standby. Goal MAP of 65 -Watch output from chest tube. -NPO. -Strict intake and output measurement. Watch urine output. -Tight glucose control. Adjust insulin. Might need to drip. -DVT and GI prophylaxis. Prophylaxis: Stress ulcer: [] PPI Agent [] H2RA [] Sucralfate [] Other: VTE: [] Enoxaparin [] SC Heparin [] SCD Full Code Excluding procedures, the total critical care time caring for this patient with life threatening, unstable organ failure, including direct patient contact, review of medical record, management of life support systems, review of data including imaging and labs, discussions with other team members, patient's family and physicians at least 31 minutes so far today. * Angélica Easley RN - 03/24/2025 6:06 PM EDT [facility] called due to chest pain, patient states pain in shoulder, unable to differentiate from surgical pain. EKG obtained. documented in [facility]* Diagnosis Onset Date Resolution Status Admit Date Greater trochanteric bursiti s of both hips acute March 05, 2025 1 :45pm Inflammation of both sacroil iac joints acute March 05, 2025 1 :45pm Low back pain acute March 05 025 1:45pm Lumbar stenosis acute March 05, 2025 1:45pm Constipation acute March 11 025 9:37am Dyspepsia acute March 11 9:37am GERD (gastroesophageal reflu x disease) acute March 11, 2025 9:37am Paraesophageal hiatal hernia acute March 11, 2025 9:37am History of pyloroplasty acute J ector2024 11:32am Lumbar stenosis acute April 07, 2025 11:32am Paraesophageal hiatal hernia acute April 07, 2025 11:32am S/P repair of paraesophageal hernia acute April 07, 2025 1 1:32am [facility] Work Phone: 1(200) 244-383506-02-2025 Radiology [facility] Main [place] [address] [place] [address] CT Scan Report Signed Patient: Nicol Smith MR#: [id number] : 1960 Acct:[id number] Age/Sex: 64 / F ADM Date: 5 Loc: CT Room: Type: [facility] Attending Dr: Mer Kirkland APRN Copies to: Mer Kirkland APRN~ Ordering Provider: Mer Kirkland APRN Date of Service: 03/02/25 CT/CT chest w con: R93.5 - Abnormal findings on diagnostic imaging of other ... CT Chest with contrast TECHNIQUE: Axial imaging with 2-D reconstruction. 90 cc of Isovue-300The CT exam was performed using one or more the following dose reduction techniques: Automated exposure control, adjustment of theMA and/or Kv according to patient size, or use of the iterative reconstruction technique. History: Abnormal lung findings. COMPARISON: CT of the abdomen, 02/16/2025, CT chest 12/10/2024 THYROID: Unremarkable TRACHEA AND BRONCHI: Patent ESOPHAGUS: Nondistended containing air. There is a fluid collection adjacent tothe distal esophagusand the hiatal hernia on the right. This [...] Katz M.D. 03/02/2025 4:28 PM Dictation Location: [facility]--20 Transcribed By: [facility] 03/02/25 1628 Dictated By: Kane Katz DO 03/02/25 1622 Signed By: 03/02/25 1628 [facility]05-06-2025 Evaluation note* Diagnosis Onset Date Resolution Status Admit Date Dyspepsia acute February 03, 2025 10:07am Fatty [...] 1 :45pm Low back pain acute March 05 025 1:45pm Lumbar stenosis acute March 05, 2025 1:45pm Constipation acute March 11 025 9:37am Dyspepsia acute March 11 9:37am GERD (gastroesophageal reflu x disease) acute March 11, 2025 9:37am Paraesophageal hiatal hernia acute March 11, 2025 9:37am [facility] Work Phone: 1(710) 916-516304-30-2025 History of Present illness Narrative* Jun Lawson MD - 01/28/2025 2:15 PM EDT SUBJECTIVE Chief Complaint: UI HPI Ms. Nicol Smith is a 64 y.o. female who is referred by Dr. Wray for urinary leakage. This has been a problem for years. She notes leakage several times per day in small amounts. DYLAN is 4. She uses 2 pads daily. She denies Valsalva related leakage. She leaks with urge urinary incontinence, primarily at night. She also has nocturnal enuresis. She voids every 3 hours during the day and twice nightly. She denies dysuria, gross hematuria, recurrent urinary tract infections. She fluid restricts to avoid leakage. She denies symptoms of vaginal bulge. She denies chronic constipation, chronic diarrhea, fecal incontinence. She had penetrative intercourse with a new male partner on January 23. This was unprotected. She isexperiencing some lower abdominal pain and would like testing for sexually transmitted infections. Past Medical History: Diagnosis Date Fibromyalgia Hyperlipidemia Non-seasonal allergic rhinitis Obesity Osteoarthritis of spine with radiculopathy, cervical region Pre-diabetes Supraventricular tachycardia Past Surgical History: Procedure Laterality Date ANKLE FRACTURE SURGERY Left Lateral ANTERIOR AND POSTERIOR VAGINAL REPAIR CARPAL TUNNEL RELEASE HERNIA REPAIR hiatel surg INCONTINENCE SURGERY dialation TONSILLECTOMY TOTAL HIP ARTHROPLASTY Bilateral Social History Tobacco Use Smoking status: Former Smokeless tobacco: Never Substance Use Topics Alcohol use: Not Currently Drug use: Not Currently Family History Problem Relation Age of Onset Hypertension Mother Bone cancer Mother Diabetes Father Hypertension Daughter Lupus Daughter Hypertension Son Breast cancer Maternal Grandmother Diabetes Paternal Grandmother Diabetes Paternal Grandfather Current Outpatient Medications: acetaminophen (TYLENOL ARTHRITIS) 650 mg 8 hr tablet, Take 1 tablet (650 mg total) by mouth every 8(eight) hours as needed for pain., Disp: , Rfl: atorvastatin (LIPITOR) 20 mg tablet, , Disp: , Rfl: cholecalciferol, vitamin D3, 2,000 units tablet, Take 1 tablet (2,000 Units total) by mouth in the morning., Disp: , Rfl: levothyroxine (SYNTHROID, LEVOTHROID) 75 MCG tablet, Take 1 tablet (75 mcg total) by mouth in the morning., Disp: , Rfl: magnesium oxide 400 mg magnesium capsule, daily., Disp: , Rfl: metoprolol tartrate (LOPRESSOR) 50 mg tablet, Take 1 tablet (50 mg total) by mouth in the morning.,Disp: , Rfl: omeprazole (PriLOSEC OTC) 20 mg EC tablet, Take 2 tablets (40 mg total) by mouth 2 (two) times daily at 0800 and 1500., Disp: , Rfl: ferrous sulfate 325 (65 FE) mg EC tablet, Take 1 tablet (325 mg total) by mouth., Disp: , Rfl: ALLERGIES Serotonin, Duloxetine, Metformin, and Penicillins OBJECTIVE VITAL SIGNS BP (!) 143/93 Pulse 82 Ht 170.2 cm (5' 7 ) Wt 127.9 kg (282 lb) BMI 44.17 kg/m PHYSICAL EXAM Constitutional: General: She is not in acute distress. Cardiovascular: Rate: Normal rate. Lower extremity edema: none. Pulmonary: Effort: No respiratory distress, normal effort. Abdominal: General: There is no distension. Palpations: Abdomen is soft. There is no hepatomegaly, splenomegaly or mass. Tenderness: There is no abdominal tenderness. Hernia: No hernia is observable. Genitourinary: External exam Vulva and introitus: Normal appearance for age, no lesions, no erythema. Urethra: No prolapse, mass, urethral pain or urethral lesion. Bladder: Not tender, no distention. Bartholin's glands: Normal size, non-tender. Perineum/anus: Normal appearance, no lesions or hemorrhoids. Internal exam Vagina: Mucosa is atrophic, pale, thin, and dry, no discharge. Cervix: Normal os, no lesions, no cervical motion tenderness. Uterus: Normal size and position, mobile, no tenderness, no masses. Adnexa: Bimanual exam limited per body habitus, ovaries not palpable, no tenderness or masses. Rectum: RADHA deferred. Pelvic floor spasm/myalgia: None Leakage with hard coughing or Valsalva? not present Modified [place] Scale 0-5: 0, no contraction POP-Q: Negative Standing Stress Test: Negative Voided Volume: 200 mL Results for orders placed or performed in visit on 01/28/25 Measure post void residual Collection Time: 01/28/25 12:00 AM Result Value Ref Range Volume 177mL POCT urinalysis dipstick only Collection Time: 01/28/25 2:16 PM Result Value Ref Range External Poct Urine Color yellow External Poct Urine Appearance clear External Poct Urine Glucose Negative External Poct Urine Ketones Negative External Poct Urine Blood Negative External Poct Urine Ph 6 External Poct Urine Nitrite Negative External Poct Urine Leukocyte Esterase Moderate Urine Culture Collection Time: 01/28/25 2:17 PM Specimen: Urine, Clean Catch Midstream Result Value Ref Range CULTURE RESULTS 10-50,000 ORGANISMS/mL NORMAL UROGENITAL ELODIA Urinalysis Collection Time: 01/28/25 2:17 PM Specimen: Urine, Clean Catch Midstream Result Value Ref Range COLOR Yellow Yellow TURBIDITY Clear Clear SPECIFIC GRAVITY 1.021 1.003 - 1.035 NITRITE Negative Negative PH,URINE 6.0 5.0 - 8.5 LEUKOCYTE ESTERASE Large (A) Negative PROTEIN Negative Negative KETONES (URINE) Negative Negative UROBILINOGEN <1.1 eu/dL <1.1 eu/dL BILIRUBIN (URINE) Negative Negative BLOOD/HGB Negative Negative MUCOUS Present (A) None R.B.CELLS <1 0 - 5 SQUAMOUS EPITHELIUM 5 0 - 5 W.B.CELLS 6 (H) 0 - 5 GLUCOSE (URINE) Negative Negative Vaginitis Panel PCR Collection Time: 01/28/25 2:51 PM Specimen: Vagina; Swab Result Value Ref Range BACT. VAGINOSIS DNA Not Detected Not Detected FABIOLA SPECIES DNA Not Detected Not Detected FABIOLA KRUSEI DNA Not Detected Not Detected FABIOLA GLABRATA DNA Not Detected Not Detected TRICHOMONAS VAG DNA Not Detected Not Detected Chlamydia/GC by PCR Laurie Swab Collection Time: 01/28/25 2:51 PM Specimen: Endocervix; Swab Result Value Ref Range CHLAMYDIA DNA(PCR) Negative Negative GONORRHOEAE DNA(PCR) Negative Negative ASSESSMENT/PLAN ICD-10-CM 1. Urge incontinence of urine N39.41 2. Nocturnal enuresis N39.44 3. Unprotected sexual intercourse Z72.51 4. OAB (overactive bladder) N32.81 Impression and Plan: 64 y.o. female with urge incontinence and nocturnal enuresis. We discussed incontinence at length including epidemiology, pathophysiology, risk factors for development, associated symptoms, and treatment options. We discussed treatment options, from least to most invasive, including expectant management, strengthening the pelvic floor with Kegel exercises and/or pelvic floor physical therapy, dietary and behavioral modification, medication trial, continence pessary, and surgical management options. She was provided with written information on incontinence and overactive bladder from . She wishes to proceed with a medication trial and high-dose beta agonist has been sent to her pharmacy, Myrbetriq 50 mg once daily. No contraindications noted. Side effects discussed. Counseled on avoidance of bladder irritants and appropriate water intake. Encouraged to do routine pelvic floor muscle exercises. Urine specimen sent to the lab for urine culture testing to rule out UTI. PVR was slightly elevatedat 177 mL. SST was negative. We obtained a vaginal swab for testing for infectious vulvovaginitis, gonorrhea, and chlamydia. Order placed for laboratory testing for HIV, hepatitis-B, hepatitis-C, and syphilis. This chart note was put together with the assistance of a speech recognition program. While intending to generate a timely document that accurately reflects the contents of the visit, no guarantee can be provided that every grammatical or spelling mistake has been or will be identified or corrected. Thank you for your understanding when reviewing this and similarly generated notes. [facility] Progress note Author Paulino Hughes [facility] Note Date/Time December 15, 2024 7:3 4am [facility] [address] [place] [address] Cardiothoracic Progress Note Signed Patient: Nicol Smith MR#: [id number] : 1960 Acct:[id number] Age/Sex: 64 / F Adm Date: 5 Loc: 4N Room: [address] [place] [address] Type: ADM IN Attending Dr: Paulino Hughes MD Copies to: ~ Date of Service: 12/15/2024 Exam Physical Exam Vital Signs: Temp Pulse Resp BP Pulse Ox O2 Del Method O2 Flow Rate 98.7 F 78 20 105/65 94 L Room Air 4 12/15/24 04:31 12/15/24 04:31 12/15/24 04:31 12/15/24 04:31 12/15/24 04:31 12/15/24 04:31 12/13/24 00:00 Objective Vital Signs Vital Signs: Temp 98.7 F 12/15/24 04:31 Pulse 78 12/15/24 04:31 Resp 20 12/15/24 04:31 BP 105/65 12/15/24 04:31 Pulse Ox 94 L 12/15/24 04:31 O2 Del Method Room Air 12/15/24 04:31 O2 Flow Rate 4 12/13/24 00:00 A&P - Cardiothoracic Surgery (1) Paraesophageal hernia: Plan Pt seems to be doing better. If able to tolerate soft diet, then d/c on soft diet. If good with liquids but still nauseous with soft, then ok to discharge this afternoon on full liquids. Documented By: Paulino Hughes MD 12/15/24732 Signed By: <Electronically signed by Paulino Hughes MD> 12/15/24733 [facility] Work Phone: 1(498) 342-249503-17-2025 [place] [address] Cardiothoracic Progress Note Signed Patient: Nicol Smith MR#: [id number] : 1960 Acct:[id number] Age/Sex: 64 / F Adm Date: 5 Loc: Room: [address] [place] [address] Type: ADM IN Attending Dr: Paulino Hughes MD Copies to: ~ Date of Service: 12/15/2024 Exam Physical Exam Vital Signs: Temp Pulse Resp BP Pulse Ox O2 Del Method O2 Flow Rate 98.7 F 78 20 105/65 94 L Room Air 4 12/15/24 04:31 12/15/24 04:31 12/15/24 04:31 12/15/24 04:31 12/15/24 04:31 12/15/24 04:31 12/13/24 00:00 Objective Vital Signs Vital Signs: Temp 98.7 F 12/15/24 04:31 Pulse 78 12/15/24 04:31 Resp 20 12/15/24 04:31 BP 105/65 12/15/24 04:31 Pulse Ox 94 L 12/15/24 04:31 O2 Del Method Room Air 12/15/24 04:31 O2 Flow Rate 4 12/13/24 00:00 A&P - Cardiothoracic Surgery (1) Paraesophageal hernia: Plan Pt seems to be doing better. If able to tolerate soft diet, then d/c on soft diet. If good with liquids but still nauseous with soft, then ok to discharge this afternoon on full liquids. Documented By: Paulino Hughes MD 12/15/24732 Signed By: 12/15/2434 [facility]03-16-2025 Progress note Author Inder Bocanegra [facility] Note Date/Time December 14, 2024 4:0 3pm [facility] [address] [place], [place] [id number] Hospitalist Progress Note Signed Patient: Nicol Smith MR#: [id number] : 1960 Acct:[id number] Age/Sex: 64 / F Adm Date: 5 Loc: 4N Room: [address] [place] [address] Type: ADM IN Attending Dr: Paulino Hughes MD Copies to: ~ Date of Service: 12/14/2024 Subjective Subjective Narrative: Seen and evaluated this morning, she was having some issues with passing a gas bubble, I did order simethicone as needed however upon entering the room the patient did say that she had numerous small belches and the gas bubble has passed. She longer has any complaints. She did tolerate a few bites of her lunch. Exam Physical Exam Vital Signs: Temp Pulse Resp BP Pulse Ox O2 Del Method O2 Flow Rate 97.8 F 89 18 146/85 H 95 Room Air 4 12/14/24 12:20 12/14/24 12:20 12/14/24 12:20 12/14/24 12:20 12/14/24 12:20 12/14/24 12:20 12/13/24 00:00 Narrative: General: Awake alert, lethargic HEENT: head atraumatic, normocephalic, moist mucous membranes, NG tube in place Neck: supple no masses, no lymphadenopathy CVS: regular rate and rhythm, no murmurs or gallops Respiratory: clear to auscultation bilaterally, no wheezing or crackles, symmetric expansion GI: soft, nondistended, nontender, positive bowel sounds with no organomegaly. Abdominal surgical dressing CDI. Extremity: moves all extremities, no restrictions of movements, no calf tenderness, no edema Neuro: AOx3, CN II-VII intact. Moves all extremities in all planes of motion. Skin: dry, intact no rashes or lesions Meds Allergies and Active Meds Allergies duloxetine Allergy (Unknown, Verified 12/12/24 06:14) temporary blindness, couldn't feel self breathing, temporary blindness and couldnt feel herself breathing metformin Allergy (Unknown, Verified 12/12/24 06:14) abdominal cramping Penicillins Allergy (Unknown, Verified 12/12/24 06:14) Rash serotonin Allergy (Uncoded 08/28/23 16:53) temporary blindness, couldn't feel self breath Active Meds: Active Medications Generic Name Dose Route Start Last Admin Trade Name Freq PRN Reason Stop Dose Admin Albuterol 2 puff 12/12/24 10:15 Albuterol Hfa 60 Puff/8 Gram Inhaler INHALATION 12/12/25 10:14 Q4H PRN SOB OR WHEEZING Bisacodyl 10 mg 12/12/24 09:59 Bisacodyl 10 Mg Supp.Rect KS 12/12/25 09:58 DAILY PRN Constipation Diphenhydramine HCl 25 mg 12/12/24 09:59 Diphenhydramine 50 Mg/Ml Vial IV-PUSH 12/12/25 09:58 Q6H PRN Itching or Hives Famotidine 20 mg 12/12/24 21:00 12/14/24 08:58 Famotidine/Pf 20 Mg/2 Ml Vial IV-PUSH 12/12/25 20:59 20 mg Q12HR CLAUDIA Administration Ketorolac Tromethamine 30 mg 12/12/24 12:36 12/14/24 05:01 Ketorolac Tromethamine 30 Mg/Ml Vial IV-PUSH 12/17/24 12:35 30 mg Q6H PRN Administration Pain Labetalol HCl 5 mg 12/12/24 14:21 Labetalol 100 Mg/20 Ml Vial IV-PUSH 12/12/25 14:20 Q4H PRN Hypertension Naloxone HCl 0.4 mg 12/12/24 09:59 Naloxone Hcl 0.4 Mg/Ml Vial IV-PUSH 12/12/25 09:58 Q2M PRN Oversedation Ondansetron HCl 4 mg 12/12/24 09:59 12/13/24 22:30 Ondansetron 4 Mg/2 Ml Vial IV-PUSH 12/12/25 09:58 4 mg Q6H PRN Administration Nausea And Vomiting Oxycodone HCl 5 mg 12/13/24 07:46 12/14/24 14:55 Oxycodone Ir 5 Mg Tablet PO 5 mg Q4HR PRN Administration Pain Prochlorperazine Edisylate 5 mg 12/13/24 16:56 12/14/24 14:59 Prochlorperazine Edisylate 10 Mg/2 Ml Vial IV-PUSH 12/13/25 16:55 5 mg Q4H PRN Administration Nausea And Vomiting Simethicone 80 mg 12/14/24 13:16 12/14/24 14:51 Simethicone 80 Mg Tab.Chew PO 12/14/25 13:15 80 mg TID.WM.HS PRN Administration Abdominal Distention Sodium Chloride 0 ml 12/12/24 05:55 12/14/24 05:02 Sodium Chloride 0.9 % 10 Ml Syringe IV-PUSH 12/12/25 05:54 10 ml PRN PRN Administration Flush Sodium Chloride 9 ml 12/12/24 09:59 Sodium Chloride 0.9 % 10 Ml Vial.Pf INJECTION 12/12/25 09:58 PRN PRN Dilute Naloxone Sodium Chloride 10 ml 12/12/24 21:00 12/14/24 08:58 Sodium Chloride 0.9 % 10 Ml Vial.Pf INJECTION 12/12/25 20:59 10 ml Q12HR CLAUDIA Administration A&P - Hospitalist Assessment/Plan (1) Paraesophageal hernia: Plan: ? CT surgery to manage ? Pain control per CT surgery ? Simethicone as needed for gastric (2) Hypothyroidism: Plan: ? Hold her levothyroxine (3) Hypertension: Plan: ? Resume her metoprolol Plan ? If the patient remains in the hospital, I will not formally round on her as I am not providing her any medical services at this point time. Will not sign offthough, please call if there is any issues we can be of assistance with. Documented By: Inder Bocanegra DO 12/14/24 1601 Signed By: <Electronically signed by Inder Bocanegra DO> 12/14/24 1603 [facility] Work Phone: 1(761) 526-974503-16-2025 [place] [id number] Hospitalist Progress Note Signed Patient: Nicol Smith MR#: [id number] : 1960 Acct:[id number] Age/Sex: 64 / F Adm Date: 5 Loc: 4N Room: [address] [place] [address] Type: ADM IN Attending Dr: Paulino Hughes MD Copies to: ~ Date of Service: 12/14/2024 Subjective Subjective Narrative: Seen and evaluated this morning, she was having some issues with passing a gas bubble, I did order simethicone as needed however upon entering the room the patient did say that she had numerous smallbelches and the gas bubble has passed. She longer has any complaints. She did tolerate a few bites of her lunch. Exam Physical Exam Vital Signs: Temp Pulse Resp BP Pulse Ox O2 Del Method O2 Flow Rate 97.8 F 89 18 146/85 H 95 Room Air 4 12/14/24 12:20 12/14/24 12:20 12/14/24 12:20 12/14/24 12:20 12/14/24 12:20 12/14/24 12:20 12/13/24 00:00 Narrative: General: Awake alert, lethargic HEENT: head atraumatic, normocephalic, moist mucous membranes, NG tube in place Neck: supple no masses, no lymphadenopathy CVS: regular rate and rhythm, no murmurs or gallops Respiratory: clear to auscultation bilaterally, no wheezing or crackles, symmetric expansion GI: soft, nondistended, nontender, positive bowel sounds with no organomegaly. Abdominal surgical dressing CDI. Extremity: moves all extremities, no restrictions of movements, no calf tenderness, no edema Neuro: AOx3, CN II-VII intact. Moves all extremities in all planes of motion. Skin: dry, intact no rashes or lesions Meds Allergies and Active Meds Allergies duloxetine Allergy (Unknown, Verified 12/12/24 06:14) temporary blindness, couldn't feel self breathing, temporary blindness and couldnt feel herself breathing metformin Allergy (Unknown, Verified 12/12/24 06:14) abdominal cramping Penicillins Allergy (Unknown, Verified 12/12/24 06:14) Rash serotonin Allergy (Uncoded 08/28/23 16:53) temporary blindness, couldn't feel self breath Active Meds: Active Medications Generic Name Dose Route Start Last Admin Trade Name Freq PRN Reason Stop Dose Admin Albuterol 2 puff 12/12/24 10:15 Albuterol Hfa 60 Puff/8 Gram Inhaler INHALATION 12/12/25 10:14 Q4H PRN SOB OR WHEEZING Bisacodyl 10 mg 12/12/24 09:59 Bisacodyl 10 Mg Supp.Rect KS 12/12/25 09:58 DAILY PRN Constipation Diphenhydramine HCl 25 mg 12/12/24 09:59 Diphenhydramine 50 Mg/Ml Vial IV-PUSH 12/12/25 09:58 Q6H PRN Itching or Hives Famotidine 20 mg 12/12/24 21:00 12/14/24 08:58 Famotidine/Pf 20 Mg/2 Ml Vial IV-PUSH 12/12/25 20:59 20 mg Q12HR CLAUDIA Administration Ketorolac Tromethamine 30 mg 12/12/24 12:36 12/14/24 05:01 Ketorolac Tromethamine 30 Mg/Ml Vial IV-PUSH 12/17/24 12:35 30 mg Q6H PRN Administration Pain Labetalol HCl 5 mg 12/12/24 14:21 Labetalol 100 Mg/20 Ml Vial IV-PUSH 12/12/25 14:20 Q4H PRN Hypertension Naloxone HCl 0.4 mg 12/12/24 09:59 Naloxone Hcl 0.4 Mg/Ml Vial IV-PUSH 12/12/25 09:58 Q2M PRN Oversedation Ondansetron HCl 4 mg 12/12/24 09:59 12/13/24 22:30 Ondansetron 4 Mg/2 Ml Vial IV-PUSH 12/12/25 09:58 4 mg Q6H PRN Administration Nausea And Vomiting Oxycodone HCl 5 mg 12/13/24 07:46 12/14/24 14:55 Oxycodone Ir 5 Mg Tablet PO 5 mg Q4HR PRN Administration Pain Prochlorperazine Edisylate 5 mg 12/13/24 16:56 12/14/24 14:59 Prochlorperazine Edisylate 10 Mg/2 Ml Vial IV-PUSH 12/13/25 16:55 5 mg Q4H PRN Administration Nausea And Vomiting Simethicone 80 mg 12/14/24 13:16 12/14/24 14:51 Simethicone 80 Mg Tab.Chew PO 12/14/25 13:15 80 mg TID.WM.HS PRN Administration Abdominal Distention Sodium Chloride 0 ml 12/12/24 05:55 12/14/24 05:02 Sodium Chloride 0.9 % 10 Ml Syringe IV-PUSH 12/12/25 05:54 10 ml PRN PRN Administration Flush Sodium Chloride 9 ml 12/12/24 09:59 Sodium Chloride 0.9 % 10 Ml Vial.Pf INJECTION 12/12/25 09:58 PRN PRN Dilute Naloxone Sodium Chloride 10 ml 12/12/24 21:00 12/14/24 08:58 Sodium Chloride 0.9 % 10 Ml Vial.Pf INJECTION 12/12/25 20:59 10 ml Q12HR CLAUDIA Administration A&P - Hospitalist Assessment/Plan (1) Paraesophageal hernia: Plan: ? CT surgery to manage ? Pain control per CT surgery ? Simethicone as needed for gastric (2) Hypothyroidism: Plan: ? Hold her levothyroxine (3) Hypertension: Plan: ? Resume her metoprolol Plan ? If the patient remains in the hospital, I will not formally round on her as I am not providing her any medical services at this point time. Will not sign offthough, please call if there is any issues we can be of assistance with. Documented By: Inder Bocanegra DO 12/14/24 1601 Signed By: 12/14/24 1603 [facility]03-15-2025 Progress note Author Paulino Hughes [facility] Note Date/Time December 13, 2024 7:5 1am [facility] [address] [place] [address] Cardiothoracic Progress Note Signed Patient: Nicol Smith MR#: [id number] : 1960 Acct:[id number] Age/Sex: 64 / F Adm Date: 5 Loc: 4N Room: [id number] Type: ADM IN Attending Dr: Paulino Hughes MD Copies to: ~ Date of Service: 12/13/2024 Exam Physical Exam Vital Signs: Temp Pulse Resp BP Pulse Ox O2 Del Method O2 Flow Rate 97.6 F 87 18 116/72 95 Room Air 4 12/13/24 03:05 12/13/24 03:05 12/13/24 03:05 12/13/24 03:05 12/13/24 03:05 12/13/24 03:05 12/13/24 00:00 Objective Vital Signs Vital Signs: Temp 97.6 F 12/13/24 03:05 Pulse 87 12/13/24 03:05 Resp 18 12/13/24 03:05 BP 116/72 12/13/24 03:05 Pulse Ox 95 12/13/24 03:05 O2 Del Method Room Air 12/13/24 03:05 O2 Flow Rate 4 12/13/24 00:00 A&P - Cardiothoracic Surgery (1) Paraesophageal hernia: Plan POD 1 from paraesophageal hernia repair. d/c NG and start PO liquids. If able to tolerate, then can advance to soft food for lunch. If able to tolerate lunch, then ok for d/c home this afternoon. Soft food and noncarbonated drinks for 2 weeks. Advise to eat slowly and avoid nausea and vomiting. May remove surgical dressings and shower. Recover incisions daily with fresh band aids until healed. No lifting >15 pounds for 6 weeks. Avoid constipation or any heavy straining for 6 weeks. Documented By: Paulino Hughes MD 12/13/24 0749 Signed By: <Electronically signed by Paulino Hughes MD> 12/13/24 0751 [facility] Work Phone: 1(665) 105-954003-15-2025 [place] [address] Cardiothoracic Progress Note Signed Patient: Nicol Smith MR#: [id number] : 1960 Acct:[id number] Age/Sex: 64 / F Adm Date: 5 Loc: 4N Room: [id number] Type: ADM IN Attending Dr: Paulino Hughes MD Copies to: ~ Date of Service: 12/13/2024 Exam Physical Exam Vital Signs: Temp Pulse Resp BP Pulse Ox O2 Del Method O2 Flow Rate 97.6 F 87 18 116/72 95 Room Air 4 12/13/24 03:05 12/13/24 03:05 12/13/24 03:05 12/13/24 03:05 12/13/24 03:05 12/13/24 03:05 12/13/24 00:00 Objective Vital Signs Vital Signs: Temp 97.6 F 12/13/24 03:05 Pulse 87 12/13/24 03:05 Resp 18 03/15/25 03:05 BP 116/72 12/13/24 03:05 Pulse Ox 95 12/13/24 03:05 O2 Del Method Room Air 12/13/24 03:05 O2 Flow Rate 4 12/13/24 00:00 A&P - Cardiothoracic Surgery (1) Paraesophageal hernia: Plan POD 1 from paraesophageal hernia repair. d/c NG and start PO liquids. If able to tolerate, then canadvance to soft food for lunch. If able to tolerate lunch, then ok for d/c home this afternoon. Soft food and noncarbonated drinks for 2 weeks. Advise to eat slowly and avoid nausea and vomiting. Mayremove surgical dressings and shower. Recover incisions daily with fresh band aids until healed. Nolifting >15 pounds for 6 weeks. Avoid constipation or any heavy straining for 6 weeks. Documented By: Paulino Hughes MD 12/13/24 0749 Signed By: 12/13/24 0751 [facility]03-14-2025 Consult note Author Inder Bocanegra [facility] Note Date/Time December 12, 2024 2:2 1pm [facility] [address] [place] [address] Hospitalist Consult Note Signed Patient: Nicol Smith MR#: [id number] : 1960 Acct:[id number] Age/Sex: 64 / F Adm Date: 5 Loc: Room: [address] [place] [address] Type: ADM IN Attending Dr: Paulino Hughes MD Copies to: MD Waqas Lott MD Shawn J Warner, DO~ HPI DATE OF CONSULTATION: 12/12/24 REQUESTING PROVIDER: Paulino Hughes Consult Narrative Reason for Consult: medical management HPI: Miss Smith is a 64-year-old female with a past medical history of hypertension, Hypothyroidism, hyperlipidemia and a couple admitted to problems which is well documented in the EMR who is at our facility after she underwent Melissa fundoplication with cardiac surgery. Please see the operative notes for detailson that procedure, it appears that well without complication. The patient is seen and evaluated postop setting, she is lying right lateral decubitus, she is having some left shoulder pain and discomfort overall from her surgery. She hasNG tube in, she states I feel miserable and she asks about how the procedure went. I did attempt to explain what the op note stated in detail to the best myability but also deferred some questions to the CT surgeon. Her medications areconfirmed in the EMR, patient is n.p.o. after the surgery. Review of Systems Review of Systems All other systems reviewed & are negative unless noted below or in HPI [facility] Medical History Non-cardiac chest pain Left lower lobe pneumonia Change in voice Bronchitis Chest congestion Headache Anemia Vitamin D deficiency Steatosis of liver Plantar fasciitis, bilateral Fracture, shoulder L side Lung nodule watching Sleep apnea bipap Neuropathy feet History of trigger finger release rt thumb and second finger Fibromyalgia Bulging discs Spinal stenosis back pain ;sciatica down rt leg Arthritis Rosacea Seasonal allergies Hx of duodenal ulcer childhood Fatty liver Hiatal hernia GERD (gastroesophageal reflux disease) Pre-diabetes Hypothyroidism Hypertension Hyperlipidemia Hx of varicose veins bilateral-injections Tachycardia Surgical History History of esophagogastroduodenoscopy (EGD) History of D&C History of right hip replacement Hx of colonoscopy History of carpal tunnel release of both wrists History of total left hip arthroplasty History of tonsillectomy Hx of foot surgery left -3 surgeries Family History Father Diabetes CHF (congestive heart failure) Heart disease Mother Osteoarthritis Primary cancer of bone marrow Macular degeneration Daughter Hypertension Legacy FamHx Relation: Daughter(s) Son Family history of mental disorder Legacy FamHx Problem: Diagnosed with Mental Illness Hypertension Brother Myocardial infarction Social History Smoking Status: Former smoker Tobacco Type: cigarettes Substance Use Type: None Meds Medications and Allergies Allergies duloxetine Allergy (Unknown, Verified 12/12/24 06:14) temporary blindness, couldn't feel self breathing, temporary blindness and couldnt feel herself breathing metformin Allergy (Unknown, Verified 12/12/24 06:14) abdominal cramping Penicillins Allergy (Unknown, Verified 12/12/24 06:14) Rash serotonin Allergy (Uncoded 08/28/23 16:53) temporary blindness, couldn't feel self breath Home Medications cholecalciferol (vitamin D3) 50 mcg (2,000 unit) tablet (Vitamin D3) 50 mcg PO QNOON 08/28/23 [History Confirmed 12/09/24] coQ10 (ubiquinol) 100 mg capsule (Qunol Rudy CoQ10) 100 mg PO QNOON 11/22/23 [History Confirmed 12/09/24] fluticasone propionate 50 mcg/actuation nasal spray,suspension 1 spray intranasal DAILY PRN allergy symptoms 11/22/23 [History Confirmed 12/09/24] acetaminophen 500 mg tablet 1,000 mg PO BID 01/03/24 [History Confirmed 12/09/24] albuterol sulfate 90 mcg/actuation aerosol inhaler See Rx Instructions .Route .COMPLEX #6.7 grams 05/08/24 [Rx Confirmed 12/09/24] polyethylene glycol 3350 17 gram oral powder packet (Miralax) 17 g PO DAILY PRN constipation 08/04/24 [History Confirmed 12/09/24] omeprazole 40 mg capsule,delayed release 40 mg PO BID 30 days #60 caps 11/04/24 [Rx Confirmed 12/12/24] atorvastatin 20 mg tablet 20 mg PO QHS 12/02/24 [History Confirmed 12/09/24] ferrous sulfate 325 mg (65 mg iron) tablet,delayed release 325 mg PO QNOON 12/02/24 [History Confirmed 12/09/24] levothyroxine 75 mcg tablet 75 mcg PO QAM 12/02/24 [History Confirmed 12/12/24] loratadine 10 mg tablet (Claritin) 10 mg PO QAM 12/02/24 [History Confirmed 12/09/24] metoprolol succinate 50 mg tablet,extended release 24 hr 50 mg PO QAM 12/02/24 [History Confirmed 12/12/24] multivitamin 1 tab PO QNOON 12/02/24 [History Confirmed 12/09/24] Active Medications: Active Medications Generic Name Dose Route Start Last Admin Trade Name Freq PRN Reason Stop Dose Admin Albuterol 2 puff 12/12/24 10:15 Albuterol Hfa 60 Puff/8 Gram Inhaler INHALATION 12/12/25 10:14 Q4H PRN SOB OR WHEEZING Bisacodyl 10 mg 12/12/24 09:59 Bisacodyl 10 Mg Supp.Rect KS 12/12/25 09:58 DAILY PRN Constipation Diphenhydramine HCl 25 mg 12/12/24 09:59 Diphenhydramine 50 Mg/Ml Vial IV-PUSH 12/12/25 09:58 Q6H PRN Itching or Hives Famotidine 20 mg 12/12/24 21:00 Famotidine/Pf 20 Mg/2 Ml Vial IV-PUSH 12/12/25 20:59 Q12HR CLAUDIA Lactated Ringer's 1,000 mls @ 20 mls/hr 12/12/24 05:55 12/12/24 09:59 Lactated Ringers IV 12/13/24 05:54 20 mls/hr .Q24H ONE Infusion Dextrose/Sodium Chloride 1,000 mls @ 75 mls/hr 12/12/24 10:00 12/12/24 11:19 5 % Dextrose-0.45 % Nacl IV 12/12/24 23:19 75 mls/hr .[id number] CLAUDIA Administration Hydromorphone HCl 20 mg/ 50 mls @ 0 mls/hr 12/12/24 09:59 Sodium Chloride IV 12/12/25 09:58 .Q0M PRN Pain Protocol 0 MG/HR Ketorolac Tromethamine 30 mg 12/12/24 12:36 12/12/24 13:59 Ketorolac Tromethamine 30 Mg/Ml Vial IV-PUSH 12/17/24 12:35 30 mg Q6H PRN Administration Pain Naloxone HCl 0.4 mg 12/12/24 09:59 Naloxone Hcl 0.4 Mg/Ml Vial IV-PUSH 12/12/25 09:58 Q2M PRN Oversedation Ondansetron HCl 4 mg 12/12/24 09:59 12/12/24 13:35 Ondansetron 4 Mg/2 Ml Vial IV-PUSH 12/12/25 09:58 4 mg Q6H PRN Administration Nausea And Vomiting Sodium Chloride 0 ml 12/12/24 05:55 12/12/24 13:35 Sodium Chloride 0.9 % 10 Ml Syringe IV-PUSH 12/12/25 05:54 10 ml PRN PRN Administration Flush Sodium Chloride 9 ml 12/12/24 09:59 Sodium Chloride 0.9 % 10 Ml Vial.Pf INJECTION 12/12/25 09:58 PRN PRN Dilute Naloxone Sodium Chloride 10 ml 12/12/24 21:00 Sodium Chloride 0.9 % 10 Ml Vial.Pf INJECTION 12/12/25 20:59 Q12HR CLAUDIA Exam Physical Exam Vital Signs: Temp Pulse Resp BP Pulse Ox O2 Del Method O2 Flow Rate 97.9 F 69 18 164/79 H 93 L Nasal Cannula 4 12/12/24 09:53 12/12/24 10:20 12/12/24 10:20 12/12/24 10:20 12/12/24 10:20 12/12/24 10:00 12/12/24 10:00 Narrative: General: Awake alert, lethargic HEENT: head atraumatic, normocephalic, moist mucous membranes, NG tube in place Neck: supple no masses, no lymphadenopathy CVS: regular rate and rhythm, no murmurs or gallops Respiratory: clear to auscultation bilaterally, no wheezing or crackles, symmetric expansion GI: soft, nondistended, nontender, positive bowel sounds with no organomegaly. Abdominal surgical dressing CDI. Extremity: moves all extremities, no restrictions of movements, no calf tenderness, no edema Neuro: AOx3, CN II-VII intact. Moves all extremities in all planes of motion. Skin: dry, intact no rashes or lesions Results - Hospitalist Consult Lab Results Labs: Laboratory Results - last 72 hr 12/12/24 06:49: POC Glucose 99, POC Glucose Comment Glu2: cleaned meter Assessment & Plan Assessment/Plan (1) Paraesophageal hernia: Plan: ? CT surgery to manage ? Pain control per CT surgery (2) Hypothyroidism: Plan: ? Hold her levothyroxine (3) Hypertension: Plan: ? Hold her metoprolol ?Will have IV labetalol on order for pressure over 180 systolic. However would favor pain control versus IV antihypertensive is low. Documented By: Inder Bocanegra DO 12/12/24 1414 Signed By: <Electronically signed by Inder Bocanegra DO> 12/12/24 1421 [facility] Work Phone: [phone]) [phone] [place] [id number] Hospitalist Consult Note Signed Patient: Nicol Smith MR#: [id number] : 1960 Acct:[id number] Age/Sex: 64 / F Adm Date: 5 Loc: 4N Room: [id number] Type: ADM IN Attending Dr: Paulino Hughes MD Copies to: MD Waqas Lott MD Shawn J Warner, DO~ HPI DATE OF CONSULTATION: 12/12/24 REQUESTING PROVIDER: Paulino Hughes Consult Narrative Reason for Consult: medical management HPI: Miss Smith is a 64-year-old female with a past medical history of hypertension, Hypothyroidism, hyperlipidemia and a couple admitted to problems which is well documented in the EMR who is at our facility after she underwent Melissa fundoplication with cardiac surgery. Please see the operative notes for detailson that procedure, it appears that well without complication. The patient is seen and evaluated postop setting, she is lying right lateral decubitus, she is having some left shoulder pain and discomfort overall from her surgery. She hasNG tube in, she states I feel miserable and she asks about how the procedure went. I did attempt to explain what the op note stated in detail to the best myability but also deferred some questions to the CT surgeon. Her medications areconfirmed in theEMR, patient is n.p.o. after the surgery. Review of Systems Review of Systems All other systems reviewed & are negative unless noted below or in HPI [facility] Medical History Non-cardiac chest pain Left lower lobe pneumonia Change in voice Bronchitis Chest congestion Headache Anemia Vitamin D deficiency Steatosis of liver Plantar fasciitis, bilateral Fracture, shoulder L side Lung nodule watching Sleep apnea bipap Neuropathy feet History of trigger finger release rt thumb and second finger Fibromyalgia Bulging discs Spinal stenosis back pain ;sciatica down rt leg Arthritis Rosacea Seasonal allergies Hx of duodenal ulcer childhood Fatty liver Hiatal hernia GERD (gastroesophageal reflux disease) Pre-diabetes Hypothyroidism Hypertension Hyperlipidemia Hx of varicose veins bilateral-injections Tachycardia Surgical History History of esophagogastroduodenoscopy (EGD) History of D&C History of right hip replacement Hx of colonoscopy History of carpal tunnel release of both wrists History of total left hip arthroplasty History of tonsillectomy Hx of foot surgery left -3 surgeries Family History Father Diabetes CHF (congestive heart failure) Heart disease Mother Osteoarthritis Primary cancer of bone marrow Macular degeneration Daughter Hypertension Legacy FamHx Relation: Daughter(s) Son Family history of mental disorder Legacy FamHx Problem: Diagnosed with Mental Illness Hypertension Brother Myocardial infarction Social History Smoking Status: Former smoker Tobacco Type: cigarettes Substance Use Type: None Meds Medications and Allergies Allergies duloxetine Allergy (Unknown, Verified 12/12/24 06:14) temporary blindness, couldn't feel self breathing, temporary blindness and couldnt feel herself breathing metformin Allergy (Unknown, Verified 12/12/24 06:14) abdominal cramping Penicillins Allergy (Unknown, Verified 12/12/24 06:14) Rash serotonin Allergy (Uncoded 08/28/23 16:53) temporary blindness, couldn't feel self breath Home Medications cholecalciferol (vitamin D3) 50 mcg (2,000 unit) tablet (Vitamin D3) 50 mcg PO QNOON 08/28/23 [History Confirmed 12/09/24] coQ10 (ubiquinol) 100 mg capsule (Qunol Rudy CoQ10) 100 mg PO QNOON 11/22/23 [History Confirmed 12/09/24] fluticasone propionate 50 mcg/actuation nasal spray,suspension 1 spray intranasal DAILY PRN allergysymptoms 11/22/23 [History Confirmed 12/09/24] acetaminophen 500 mg tablet 1,000 mg PO BID 01/03/24 [History Confirmed 12/09/24] albuterol sulfate 90 mcg/actuation aerosol inhaler See Rx Instructions .Route .COMPLEX #6.7 grams 05/08/24 [Rx Confirmed 12/09/24] polyethylene glycol 3350 17 gram oral powder packet (Miralax) 17 g PO DAILY PRN constipation 08/04/24 [History Confirmed 12/09/24] omeprazole 40 mg capsule,delayed release 40 mg PO BID 30 days #60 caps 11/04/24 [Rx Confirmed 12/12/24] atorvastatin 20 mg tablet 20 mg PO QHS 12/02/24 [History Confirmed 12/09/24] ferrous sulfate 325 mg (65 mg iron) tablet,delayed release 325 mg PO QNOON 12/02/24 [History Confirmed 12/09/24] levothyroxine 75 mcg tablet 75 mcg PO QAM 12/02/24 [History Confirmed 12/12/24] loratadine 10 mg tablet (Claritin) 10 mg PO QAM 12/02/24 [History Confirmed 12/09/24] metoprolol succinate 50 mg tablet,extended release 24 hr 50 mg PO QAM 12/02/24 [History Confirmed 12/12/24] multivitamin 1 tab PO QNOON 12/02/24 [History Confirmed 12/09/24] Active Medications: Active Medications Generic Name Dose Route Start Last Admin Trade Name Freq PRN Reason Stop Dose Admin Albuterol 2 puff 12/12/24 10:15 Albuterol Hfa 60 Puff/8 Gram Inhaler INHALATION 12/12/25 10:14 Q4H PRN SOB OR WHEEZING Bisacodyl 10 mg 12/12/24 09:59 Bisacodyl 10 Mg Supp.Rect KS 12/12/25 09:58 DAILY PRN Constipation Diphenhydramine HCl 25 mg 12/12/24 09:59 Diphenhydramine 50 Mg/Ml Vial IV-PUSH 12/12/25 09:58 Q6H PRN Itching or Hives Famotidine 20 mg 12/12/24 21:00 Famotidine/Pf 20 Mg/2 Ml Vial IV-PUSH 12/12/25 20:59 Q12HR CLAUDIA Lactated Ringer's 1,000 mls @ 20 mls/hr 12/12/24 05:55 12/12/24 09:59 Lactated Ringers IV 12/13/24 05:54 20 mls/hr .Q24H ONE Infusion Dextrose/Sodium Chloride 1,000 mls @ 75 mls/hr 12/12/24 10:00 12/12/24 11:19 5 % Dextrose-0.45 % Nacl IV 12/12/24 23:19 75 mls/hr .[id number] CLAUDIA Administration Hydromorphone HCl 20 mg/ 50 mls @ 0 mls/hr 12/12/24 09:59 Sodium Chloride IV 12/12/25 09:58 .Q0M PRN Pain Protocol 0 MG/HR Ketorolac Tromethamine 30 mg 12/12/24 12:36 12/12/24 13:59 Ketorolac Tromethamine 30 Mg/Ml Vial IV-PUSH 12/17/24 12:35 30 mg Q6H PRN Administration Pain Naloxone HCl 0.4 mg 12/12/24 09:59 Naloxone Hcl 0.4 Mg/Ml Vial IV-PUSH 12/12/25 09:58 Q2M PRN Oversedation Ondansetron HCl 4 mg 12/12/24 09:59 12/12/24 13:35 Ondansetron 4 Mg/2 Ml Vial IV-PUSH 12/12/25 09:58 4 mg Q6H PRN Administration Nausea And Vomiting Sodium Chloride 0 ml 12/12/24 05:55 12/12/24 13:35 Sodium Chloride 0.9 % 10 Ml Syringe IV-PUSH 12/12/25 05:54 10 ml PRN PRN Administration Flush Sodium Chloride 9 ml 12/12/24 09:59 Sodium Chloride 0.9 % 10 Ml Vial.Pf INJECTION 12/12/25 09:58 PRN PRN Dilute Naloxone Sodium Chloride 10 ml 12/12/24 21:00 Sodium Chloride 0.9 % 10 Ml Vial.Pf INJECTION 12/12/25 20:59 Q12HR CLAUDIA Exam Physical Exam Vital Signs: Temp Pulse Resp BP Pulse Ox O2 Del Method O2 Flow Rate 97.9 F 69 18 164/79 H 93 L Nasal Cannula 4 12/12/24 09:53 12/12/24 10:20 12/12/24 10:20 12/12/24 10:20 12/12/24 10:20 12/12/24 10:00 12/12/24 10:00 Narrative: General: Awake alert, lethargic HEENT: head atraumatic, normocephalic, moist mucous membranes, NG tube in place Neck: supple no masses, no lymphadenopathy CVS: regular rate and rhythm, no murmurs or gallops Respiratory: clear to auscultation bilaterally, no wheezing or crackles, symmetric expansion GI: soft, nondistended, nontender, positive bowel sounds with no organomegaly. Abdominal surgical dressing CDI. Extremity: moves all extremities, no restrictions of movements, no calf tenderness, no edema Neuro: AOx3, CN II-VII intact. Moves all extremities in all planes of motion. Skin: dry, intact no rashes or lesions Results - Hospitalist Consult Lab Results Labs: Laboratory Results - last 72 hr 12/12/24 06:49: POC Glucose 99, POC Glucose Comment Glu2: cleaned meter Assessment & Plan Assessment/Plan (1) Paraesophageal hernia: Plan: ? CT surgery to manage ? Pain control per CT surgery (2) Hypothyroidism: Plan: ? Hold her levothyroxine (3) Hypertension: Plan: ? Hold her metoprolol ?Will have IV labetalol on order for pressure over 180 systolic. However would favor pain control versus IV antihypertensive is low. Documented By: Inder Bocanegra DO 12/12/24 1414 Signed By: 12/12/24 1421 [facility]03-14-2025 Evaluation note* Diagnosis Onset Date Resolution Status Admit Date Hypertension acute December 12, 2024 5:40am Hypothyroidism acute November 5:40am Paraesophageal hernia resolved Nov 2024 5:40am Chronic low back pain acute Nov 2024 9:27am Constipation acute December 19, 2024 9:27am Paraesophageal hernia resolved [facility] 2024 9:27am Dyspepsia acute February 03, 2025 [...] Lumbar stenosis acute March 05, 2025 1:45pm [facility] Work Phone: 1(610) 967-515203-12-2025 Radiology Diagnostic study [facility] [address] [place] [address] CT Scan Report Signed Patient: Nicol Smith MR#: [id number] : 1960 Acct:[id number] Age/Sex: 64 / F ADM Date: 5 [facility]: Type: [facility] CLI Attending Dr: Paulino Hughes MD Copies to: Paulino Hughes MD~ Ordering Provider: Paulino Hughes MD Date of Service: 12/10/24 CT/CT chest wo con: K44.9 CT CHEST WITHOUT IV CONTRAST: CLINICAL HISTORY: Hiatal hernia. COMPARISON: None TECHNIQUE: Spiral images were obtained through the chest without IV contrast. This CT exam was performed using one or more following dose reduction techniques: Automated exposure control, adjustment of the mA and/or kV accordingto patient size, or use of iterative reconstruction technique. FINDINGS: Mediastinum:Thoracic aorta appears normal in caliber. Pulmonary trunk appears nondilated. No pericardial effusion. No lymphadenopathy. The esophagus is grossly unremarkable. A large hiatal hernia with organoaxial volvulus is noted. Lungs:Compressive atelectasis is seen involving the lower lobes surrounding the hiatal hernia. Bibasilar scarring. No consolidation pneumothorax or pleural effusion. 4 mm subpleural nodule left lowerlobe series 4 image 52. Abd:No acute findings. Soft tissues/Bones: Soft tissues surrounding the chest wall demonstrate no acutefindings. Osseous structures demonstrate degenerative change. CT/CT chest wo con IMPRESSION: Large hiatal hernia with organoaxial volvulus. 4 mm nodule left lower lobe. Fleischner Society guidelines for follow-up and management of incidentally detected pulmonary nodules: ? Single Solid Nodule: ? Nodule size less than 6 mm In a low-risk patient, no routine follow-up. In a high-risk patient, optional CT at 12 months. ? ? - Low risk patients include individuals with minimal or absent history of smoking and other known risk factors. ? - High risk patients include individuals with a history or smoking or known riskfactors. ? Radiology 2017 http://pubs.rsna.org/doi/full/10.1148/radiol.5993581416 Impression dictated by: Stalin Matamoros Jr., Jose12/10/2024 1:36 PM Dictation Location: [place] [address] Transcribed By: [facility] 12/10/24 1336 Dictated By: Stalin Matamoros Jr, DO 12/10/24 1334 Signed By: 12/10/24 1336 [facility]03-11-2025 Evaluation note* Diagnosis Onset Date Resolution Status Admit Date HERRERA (obstructive sleep apnea) acute December 09, 2024 11:32am Paraesophageal hernia resolved Nov 11:32am Preoperative examination inactive December 09, 2024 11:32am Hypertension acute December 12, 2024 5:40am Hypothyroidism acute November 5:40am Paraesophageal hernia resolved [facility] 2024 5:40am Chronic low back pain acute Nov 2024 9:27am Constipation acute December 19, 2024 9:27am Paraesophageal hernia resolved [facility] 2024 9:27am Fatty liver acute February 03, 2025 10:07am GERD (gastroesophageal reflu x disease) acute February 03, 2025 10 :07am [facility] Work Phone: 1(465) 280-105603-11-2025 Evaluation note* Diagnosis Onset Date Resolution Status Admit Date HERRERA (obstructive sleep apnea) acute December 09, 2024 11:32am Paraesophageal hernia resolved [facility] 2024 11:32am Preoperative examination inactive December 09, 2024 11:32am Hypertension acute December 12, 2024 5:40am Hypothyroidism acute November 5:40am Paraesophageal hernia resolved [facility] 2024 5:40am Chronic low back pain acute Nov 2024 9:27am Constipation acute December 19, 2024 9:27am Paraesophageal hernia resolved [facility] 2024 9:27am Dyspepsia acute February 03, 2025 10:07am Fatty liver acute February 03, 2025 10:07am GERD (gastroesophageal reflu x disease) acute February 03, 2025 10 :07am Paraesophageal hiatal hernia acute February 03, 2025 10:07am Edema of left lower extremity acute February 09, 2025 1:03pm [facility] Work Phone: 1(411) 900-749803-11-2025 Evaluation note* Diagnosis Onset Date Resolution Status Admit Date HERRERA (obstructive sleep apnea) acute December 09, 2024 11:32am Paraesophageal hernia resolved [facility] 2024 11:32am Preoperative examination inactive December 09, 2024 11:32am Hypertension acute December 12, 2024 5:40am Hypothyroidism acute November 5:40am Paraesophageal hernia resolved [facility] 2024 5:40am Chronic low back pain acute Nov 2024 9:27am Constipation acute December 19, 2024 9:27am Paraesophageal hernia resolved [facility] 2024 9:27am Dyspepsia acute February 03, 2025 [...] :45pm Low back pain acute March 05, 2 025 1:45pm Lumbar stenosis acute March 05, 2025 1:45pm [facility] Work Phone: [phone]) 181-200703-03-2025 History of Present illness Narrative* Uday Wray DO - 12/01/2024 11:00 AM EST Images from the original note were not included. Reason for Appointment: Patient ID: Nicol Smith is a 64 y.o. female who presents for Gynecologic Exam Patient presents today for Annual Exam. MEDICATIONS Current Outpatient Medications Medication Instructions atorvastatin (Lipitor) 20 MG tablet 1 tablet, Oral, Daily EXTRA STRENGTH ACETAMINOPHEN PO 2 each, Oral, Daily ferrous sulfate 325 (65 Fe) MG EC tablet Oral, Daily with breakfast, Do not crush, chew, or split. levothyroxine (SYNTHROID, LEVOXYL) 75 mcg, Oral, Daily before breakfast loratadine (CLARITIN REDITABS) 10 mg, Oral, Daily metoprolol succinate XL (Toprol-XL) 25 MG 24 hr tablet 2 tablets, Oral, Daily Mounjaro 2.5 mg, Subcutaneous, Weekly pantoprazole (ProtoNix) 40 MG EC tablet 1 tablet, Oral, Daily ALLERGIES Allergies Allergen Reactions Serotonin Reuptake Inhibitors (Ssris) Shortness of breath Metformin Hcl Penicillin G Sodium PROBLEMS Active Ambulatory Problems Diagnosis Date Noted Cervical cyst 12/01/2024 Resolved Ambulatory Problems Diagnosis Date Noted No Resolved Ambulatory Problems Past Medical History: Diagnosis Date Arm fracture, left Arthrosis Fatty liver History of being hospitalized History of medical problems Osteoarthritis Pre-diabetes Pure hypercholesterolemia (CMS/HCC) Rheumatoid arthritis (CMS/HCC) Screening mammogram for breast cancer 11/03/2022 Visit for review of DEXA scan 11/03/2022 HISTORY PAST MEDICAL HISTORY SOCIAL HISTORY Past Medical History: Diagnosis Date Arm fracture, left upper arm Arthrosis Unspecified Fatty liver History of being hospitalized Childbirth x2 History of medical problems Ulcer Osteoarthritis Pre-diabetes Pure hypercholesterolemia (CMS/HCC) Rheumatoid arthritis (CMS/HCC) Screening mammogram for breast cancer 11/03/2022 neg Visit for review of DEXA scan 11/03/2022 neg Social History Tobacco Use Smoking status: Former Types: Cigarettes Smokeless tobacco: Not on file Substance Use Topics Alcohol use: Never Comment: Caffeine: none Drug use: Not on file FAMILY HISTORY Family History Problem Relation Name Age of Onset Hypertension Mother Cancer Mother Hypertension Father Diabetes Father Heart disease Father Diabetes Paternal Grandfather SURGICAL HISTORY Past Surgical History: Procedure Laterality Date CARPAL TUNNEL RELEASE Left CARPAL TUNNEL RELEASE Right 2019 JOINT REPLACEMENT Left [address] Adorno PAP SMEAR 05/31/2021 TONSILLECTOMY REVIEW OF SYSTEMS Review of Systems: Review of Systems All other systems reviewed and are negative. OBJECTIVE Objective: Physical Exam Constitutional: Appearance: Normal appearance. She is well-developed. Genitourinary: Vulva normal. Cervical polyp present. Breasts: Breasts are soft. Right: Normal. Left: Normal. Cardiovascular: Rate and Rhythm: Normal rate and regular rhythm. Pulmonary: Effort: Pulmonary effort is normal. Breath sounds: Normal breath sounds. Abdominal: General: Bowel sounds are normal. There is no distension. Palpations: Abdomen is soft. Tenderness: There is no abdominal tenderness. There is no guarding or rebound. Musculoskeletal: General: No swelling. Normal range of motion. Right lower leg: No edema. Left lower leg: No edema. Neurological: Mental Status: She is alert and oriented to person, place, and time. Skin: General: Skin is warm and dry. Psychiatric: Mood and Affect: Mood normal. Behavior: Behavior normal. Vitals and nursing note reviewed. Exam conducted with a court worker present. Vitals: Estimated body mass index is 45.42 kg/m as calculated from the following: Height as of 06/13/23: 5' 7 . Weight as of this encounter: 290 lb. BP: 128/88 No LMP recorded (lmp unknown). ASSESSMENT & PLAN ICD-10-CM 1. Well woman exam with routine gynecological exam Z01.419 Bilateral screening mammogram DEXA bone density THIN PREP TIS PAP AND HR HPV DNA Bilateral screening mammogram 2. Postmenopausal state Z78.0 DEXA bone density 3. Encounter for screening mammogram for malignant neoplasm of breast Z12.31 Bilateral screening mammogram Bilateral screening mammogram 4. Urinary retention R33.9 5. Mixed stress and urge urinary incontinence N39.46 6. Cervical polyp N84.1 Annual: Patient presents today for an annual exam. Patient states she is doing well and has complaints of urinary incontinence and vaginal dryness. Discussed patient using coconut oil to assist with vaginal dryness as patient does not desire to have estrogen cream prescribed. Pap was obtained without difficulty and patient given mammogram and DEXA Scan orders to have scheduled/obtained. Nursing will attempt to obtain results for previous mammogram and Dexa Scan from [facility]. Patient complaints of incontinence that has persistently gotten worse over the past year. 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 Mast in the past. Offered for referral to be sent to [facility] and patient is agreeable. Referral will be completed and patient will be notified by [employer] with referral information as MyChart is still pending finalization. Cervical polyp noted with pelvic exam. Orders Placed This Encounter Procedures Bilateral screening mammogram DEXA bone density Follow Up: Patient is to return in one year for annual unless needed otherwise. Documented by Julia Hare LPN on behalf of: JUDE Bustillo & Uday Wray DO documented in this encounterMissouri Delta Medical [id number] NoteCardiology Follow Up Progress Note Chief Complaint: Patient here for follow up echo and stress test. Says her SOB has resolved, but her BP has been elevated. HPI: Nicol Smith is a 64 y.o. female who has a past medical history of Allergies, Fibromyalgia, Hyperlipidemia, Liver disease, Obesity, and Presence of artificial hip joint, left. that presents to cardiology for follow up. During her last visit, patient complained of atypical chest pain. As such, echocardiogram and stress test were performed. Stress test was without evidence of reversible ischemia. Fixed defect was thought to be artifact in nature. Echocardiogram was unremarkable, although valve visualization was limited. Today, patient states that she recently had a GI workup and was noted to have a paraesophageal hernia. Her pain has almost completely resolved. When she gets pain, it is only at rest, does not happen with activity. She denies any shortness of breath. She denies any edema, orthopnea, or paroxysmal nocturnal dyspnea. Overall, she is doing well. She states that her blood pressure remains a tad bit elevated. Cardiology ROS: 10 point ROS is performed [...] D2, (VITAMIN D2 ORAL) Take by mouth. HYDROcodone-acetaminophen (Berne) 5-325 mg tablet hydrocodone 5 mg-acetaminophen 325 mg tablet TAKE 1 TABLET BY MOUTH EVERY 4 TO 6 HOURS NEEDED FOR PAIN (Max OF EIGHT TABLETS in 24 HOURS) levothyroxine (Synthroid, Levoxyl) 50 mcg tablet TAKE 1 TABLET BY MOUTH IN THE MORNING ON AN EMPTY STOMACH linezolid (Zyvox) 600 mg tablet linezolid 600 mg tablet TAKE 1 TABLET BY MOUTH TWICE DAILY magnesium oxide 400 mg magnesium capsule 1 capsule in the morning. metoprolol succinate XL (Toprol-XL) 25 mg 24 hr tablet TAKE 1 TABLET BY MOUTH ONCE DAILY 90 tablet 3 omeprazole OTC (PriLOSEC OTC) 20 mg EC [...] Metformin, and Penicillins Physical Exam VITAL SIGNS: There were no vitals taken for this visit. Constitutional: Well developed, Well nourished, No acute [...] Smith is a 64 y.o. female with HTN HLD LDL is at target. Continue current statin dose Given poorly controlled Bp, will increase Toprol from 25 mg daily to 50 mg daily. Patient instructed to check daily blood pressure [...] verbalizes understanding Follow-up in cardiology clinic in 6 months, or sooner as needed Reji (more content not included)...[facility] 10-07-2024 [place] [address] EGD Procedure Note Signed Patient: Nicol Smith MR#: [id number] : 1960 Acct:[id number] Age/Sex: 64 / F Adm Date: 5 Loc: Room: Type: [facility] Attending Dr: Esau Busch MD Copies to: MD Waqas Saleem MD~ Esophagogastroduodenoscopy Date/Provider Date: 10/07/2024 Esau Busch MD Narrative Narrative: Procedure: EGD Indication: 64-year-old female who is referred for EGD to evaluate GERD, symptoms not currently controlled on pantoprazole 40 mg daily. Also complains of noncardiac chest pain. Pre-operative diagnosis: GERD, noncardiac chest pain Post-operative diagnosis: Paraesophageal hernia Sedation: propofol per anesthesia dept O2 oximetry, hemodynamic monitoring was performed pre, during, and post procedure. Patient was identified, H&P completed, patient was given full explanation of the procedure as well as associatedrisks and written consent wasobtained prior to procedure. Patient expressed complete understanding of the procedure as well as alternatives to the procedure and to anesthesia and agreed to proceed with the procedure as indicated. Patient was immediately reassessed prior to IV sedation. Following IV sedation, patient was placed in the left lateral decubitus position. Bite block was inserted. Endoscope was passed through the mouth, into the esophagus. Endoscope was advanced into the stomach through the pyloricchannel and into the 2nd portion of duodenum by direct visualization. Endoscopewas withdrawn into the stomach and retroflexion was performed. The endoscope was straightened,the stomach was decompressed. Endoscope was withdrawn into the esophagus then completely removed with the findings as below. Findings: DUODENUM: bulb and descending portion appeared normal. STOMACH: pyloric channel, antrum, body, fundus and cardia, including retroflexedviews appear normal. ESOPHAGUS: Diaphragmatic hiatus was 44 cm from incisors. GE junction (upper margin of gastric folds) was at 33 cm from incisors. Squamocolumnar junction was at 33 cm from incisors. Large paraesophageal hernia, likely type II Biopsy taken: no Complications: None EBL: minimal Recommendations: -Patient's symptoms are likely due to her very large paraesophageal hernia. 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 If she does not undergo surgical repair of thehernia she needs to be on high-dose, high potency PPI twice daily lifelong such as omeprazole, esomeprazole or dexlansoprazole. -We will have her follow-up in the office with the GI nurse practitioner to discuss referral for surgical repair versus management with high-dose high intensity PPI therapy -Resume normal diet -Follow up with PCP Following a period of recovery, patient was seen and given full explanation of the procedure. Patient tolerated the procedure well and will be discharged in satisfactory, stable condition. Esau Busch MD Documented By: Esau Busch MD 10/07/24 1335 Signed By: 10/07/24 1344 [facility]01-07-2025 History and physical [place] [id number] Gastroenterology H&P Signed Patient: Nicol Smith MR#: [id number] : 1960 Acct:[id number] Age/Sex: 64 / F Adm Date: 5 [...] Allergies and pertinent laboratory tests were also re viewedat this time in the EMR. The physical [...] Busch MD Documented By: Esau Busch MD 10/07/241333 Signed By: 10/07/241334 [facility]12-30-2024 Evaluation note* Diagnosis Onset Date Resolution Status Admit Date BMI 40.0-44.9, adult acute Dece 2023 1:33pm Left lower lobe pneumonia acute September 29, 2024 1:33pm Discogenic thoracic pain acute October 28, 2024 9:36am Pre-diabetes acute October 9:36am Fatty liver acute November 04, 2024 10:33am Non-cardiac chest pain acute 2024 10:33am Paraesophageal hernia acute Nov 10:33am [facility] Work Phone: 1([phone]) 587-175512-30-2024 Evaluation note* Diagnosis Onset Date Resolution Status Admit Date BMI 40.0-44.9, adult acute Dece 2023 1:33pm Left lower lobe pneumonia inactive September 29, 2024 1:33pm Discogenic thoracic pain acute October 28, 2024 9:36am Pre-diabetes acute October 9:36am Fatty liver acute November 04, 2024 10:33am Paraesophageal hernia acute Nov 10:33am Non-cardiac chest pain inactive 2024 10:33am HERRERA (obstructive sleep apnea) acute December 09, 2024 11:32am Paraesophageal hernia acute Nov 11:32am Preoperative examination acute December 09, 2024 11:32am [facility] Work Phone: 1([phone]) 514-580012-30-2024 Evaluation note* Diagnosis Onset Date Resolution Status Admit Date BMI 40.0-44.9, adult acute Dece 2023 1:33pm Left lower lobe pneumonia inactive September 29, 2024 1:33pm Discogenic thoracic pain acute October 28, 2024 9:36am Pre-diabetes acute October 9:36am Fatty liver acute November 04, 2024 10:33am Paraesophageal hernia acute Feb ruary 2024 10:33am Non-cardiac chest pain inactive Fe bruary 2024 10:33am HERRERA (obstructive sleep apnea) acute December 09, 2024 11:32am Paraesophageal hernia acute [facility] 2024 11:32am Preoperative examination acute December 09, 2024 11:32am Hypertension acute December 12, 2024 5:40am Hypothyroidism acute November 5:40am Paraesophageal hernia acute [facility] 2024 5:40am [facility] Work Phone: 1([phone]) 163-171412-30-2024 Evaluation note* Diagnosis Onset Date Resolution Status Admit Date BMI 40.0-44.9, adult acute Dece 2023 1:33pm Left lower lobe pneumonia inactive September 29, 2024 1:33pm Discogenic thoracic pain acute October 28, 2024 9:36am Pre-diabetes acute October 9:36am Fatty liver acute November 04, 2024 10:33am Paraesophageal hernia resolved [facility] 2024 10:33am Non-cardiac chest pain inactive [facility] 2024 10:33am HERRERA (obstructive sleep apnea) acute December 09, 2024 11:32am Preoperative examination acute December 09, 2024 11:32am Paraesophageal hernia resolved [facility] 2024 11:32am Hypertension acute December 12, 2024 5:40am Hypothyroidism acute November 5:40am Paraesophageal hernia resolved [facility] 2024 5:40am [facility] Work Phone: [phone]) 705-748811-25-2024 Evaluation note* Diagnosis Onset Date Resolution Status Admit Date Sinusitis, acute maxillary acute August 25, 2024 1:42pm Aftercare following joint replacement acute August 27, 12:14pm S/P total right hip arthroplasty acute August 27 12:14pm BMI 40.0-44.9, adult acute Dece 2023 1:33pm Left lower lobe pneumonia acute September 29, 2024 1:33pm Discogenic thoracic pain acute October 28, 2024 9:36am Fatty liver acute November 04, 2024 10:33am Non-cardiac chest pain acute Fe bruary 4th, 2025 10:33am Paraesophageal hernia acute b 2024 10:33am [facility] Work Phone: [phone]) 835-629111-25-2024 Evaluation note* Diagnosis Onset Date Resolution Status Admit Date Sinusitis, acute maxillary acute August 25, 2024 1:42pm Aftercare following joint replacement acute August 27, 024 12:14pm S/P total right hip arthroplasty acute August 27 024 12:14pm BMI 40.0-44.9, adult acute Dece 2023 1:33pm Left lower lobe pneumonia acute September 29, 2024 1:33pm Discogenic thoracic pain acute October 28, 2024 9:36am Pre-diabetes acute October 9:36am Fatty liver acute November 04, 2024 10:33am Non-cardiac chest pain acute 2024 10:33am Paraesophageal hernia acute Nov 10:33am [facility] Work Phone: [phone] Evaluation note* Diagnosis Onset Date Resolution Status Admit Date Anemia acute August 04, 2024 10:40am Bloating acute August 04, 2024 10:40am Chronic low back pain acute Aug 10:40am Fatty liver acute August 04, 2024 10:40am Sinusitis, acute maxillary acute August 25, 2024 1:42pm Aftercare following joint replacement acute August 27, 12:14pm S/P total right hip arthroplasty acute August 27 024 12:14pm BMI 40.0-44.9, adult acute Dece 2023 1:33pm Left lower lobe pneumonia acute September 29, 2024 1:33pm [facility] Work Phone: [phone]) 865-219511-04-2024 Evaluation note* Diagnosis Onset Date Resolution Status Admit Date Anemia acute August 04, 2024 10:40am Bloating acute August 04, 2024 10:40am Chronic low back pain acute Aug 10:40am Fatty liver acute August 04, 2024 10:40am Sinusitis, acute maxillary acute August 25, 2024 1:42pm Aftercare following joint replacement acute August 27 024 12:14pm S/P total right hip arthroplasty acute August 27 024 12:14pm BMI 40.0-44.9, adult acute Dece mber 2023 1:33pm Left lower lobe pneumonia acute September 29, 2024 1:33pm Discogenic thoracic pain acute October 28, 2024 9:36am [facility] Work Phone: [phone]) [phone] NoteCardiology Follow Up Progress Note Chief Complaint: [...] Patient is following with hematology here at [facility] for anemia. No edema, orthopnea, or [...] 1 TABLET BY MOUTH TWICE DAILY HYDROcodone-acetaminophen (Berne) 5-325 mg tablet hydrocodone 5 mg-acetaminophen 325 [...] as needed Anita Tafoya (more content not included)...[facility]04-04-2024 Evaluation note* Author Rolando Castellanos [facility] Authored January 03, 2024 11:3 [...] given. 1. Prediabetes most recent A1c of 5.8-cyqmj-vvrs treatment with long-term healthy lifestyle change, decreased [...] join the gym and start with a six sigma black trainer. She should consider pool therapy/ water therapy. She needs to try to keep her trigger foods out of the house. She is to try to find healthier desserts and she tends to like to have 1 after each meal. Lately her cravings for sweets have been decreased. She continues to work with our cleat layer. She understands the need for preplanning, following the plate method, having healthy foods around, keeping unhealthy foods out of her house and eating healthy Whole Foods. She does not like to cook or prep. She understands that shopping, chopping and preplanning so that she can eat healthy foods is essential to her recovery. She will continue to work with our cleat layer. We could consider Wellbutrin in the future [...] TSH with her PCP. Author Estephania Mao [facility] Authored February 21, 2024 10:30 [...] given. 1. Prediabetes most recent A1c of 5.3-mjrxq-qvna treatment with long-term healthy lifestyle change, decreased [...] join the gym and start with a six sigma black trainer. She should consider pool therapy/ water therapy. She needs to try to keep her trigger foods out of the house. She is to try to find healthier desserts and she tends to like to have 1 after each meal. Lately her cravings for sweets have been decreased. She continues to work with our cleat layer. She understands the need for preplanning, following the plate method, having healthy foods around, keeping unhealthy foods out of her house and eating healthy Whole Foods. She does not like to cook or prep. She understands that shopping, chopping and preplanning so that she can eat healthy foods is essential to her recovery. She will continue to work with our cleat layer. We could consider Wellbutrin in the future [...] lab work and TSH with her PCP. [facility] Work Phone: 1([phone]) 848-759704-04-2024 Evaluation note* Author Rolando Castellanos [facility] Authored January 03, 2024 11:3 [...] given. 1. Prediabetes most recent A1c of 5.5-pfmzw-pitd treatment with long-term healthy lifestyle change, decreased [...] join the gym and start with a six sigma black trainer. She should consider pool therapy/ water therapy. She needs to try to keep her trigger foods out of the house. She is to try to find healthier desserts and she tends to like to have 1 after each meal. Lately her cravings for sweets have been decreased. She continues to work with our cleat layer. She understands the need for preplanning, following the plate method, having healthy foods around, keeping unhealthy foods out of her house and eating healthy Whole Foods. She does not like to cook or prep. She understands that shopping, chopping and preplanning so that she can eat healthy foods is essential to her recovery. She will continue to work with our cleat layer. We could consider Wellbutrin in the future [...] TSH with her PCP. Author Rolando Castellanos [facility] Authored February 21, 2024 10:49 [...] given. 1. Prediabetes most recent A1c of 5.9-xoqky-ujkd treatment with long-term healthy lifestyle change, decreased [...] join the gym and start with a six sigma black trainer. She should consider pool therapy/ water [...] to continue to work closely with our tire duster. She understands the need for preplanning, following the plate method, having healthy foods around, keeping unhealthy foods out of her house and eating healthy Whole Foods. She does not like to cook or prep. She understands that shopping, chopping and preplanning so that she can eat healthy foods is essential to her recovery. She will continue to work with our cleat layer. We could consider Wellbutrin in the future [...] lab work and TSH with her PCP. [facility] Work Phone: 1([phone]) 876-130902-22-2024 Evaluation note* Author Rolando Castellanos [facility] Authored November 22, 2023 12:47pm [...] given. 1. Prediabetes most recent A1c of 5.5-wxyul-adcu treatment with long-term healthy lifestyle change, decreased [...] house. She continues to work with our cleat layer. She understands the need for preplanning, following the plate method, having healthy foods around, keeping unhealthy foods out of her house and eating healthy Whole Foods. She does not like to cook or prep. She understands that shopping, chopping and preplanning so that she can eat healthy foods is essential to her recovery. She will continue to work with our cleat layer. We could consider Wellbutrin in the future [...] lab work and TSH with her PCP. [facility] Work Phone: [phone] [id number] Evaluation note* Author Rolando Castellanos [facility] Authored November 22, 2023 12:47pm [...] given. 1. Prediabetes most recent A1c of 5.1-qradm-qwuv treatment with long-term healthy lifestyle change, decreased [...] house. She continues to work with our cleat layer. She understands the need for preplanning, following the plate method, having healthy foods around, keeping unhealthy foods out of her house and eating healthy Whole Foods. She does not like to cook or prep. She understands that shopping, chopping and preplanning so that she can eat healthy foods is essential to her recovery. She will continue to work with our cleat layer. We could consider Wellbutrin in the future [...] TSH with her PCP. Author Estephania Mao [facility] Authored January 03, 2024 11:1 [...] given. 1. Prediabetes most recent A1c of 5.8-ytyhi-jptw treatment with long-term healthy lifestyle change, decreased [...] house. She continues to work with our cleat layer. She understands the need for preplanning, following the plate method, having healthy foods around, keeping unhealthy foods out of her house and eating healthy Whole Foods. She does not like to cook or prep. She understands that shopping, chopping and preplanning so that she can eat healthy foods is essential to her recovery. She will continue to work with our cleat layer. We could consider Wellbutrin in the future [...] lab work and TSH with her PCP. [facility] Work Phone: 1(465) 560-644002-22-2024 Evaluation note* Author Rolando Castellanos [facility] Authored November 22, 2023 12:47pm [...] given. 1. Prediabetes most recent A1c of 5.0-icyta-tljj treatment with long-term healthy lifestyle change, decreased [...] house. She continues to work with our cleat layer. She understands the need for preplanning, following the plate method, having healthy foods around, keeping unhealthy foods out of her house and eating healthy Whole Foods. She does not like to cook or prep. She understands that shopping, chopping and preplanning so that she can eat healthy foods is essential to her recovery. She will continue to work with our cleat layer. We could consider Wellbutrin in the future [...] TSH with her PCP. Author Rolando Castellanos [facility] Authored January 03, 2024 11:3 [...] given. 1. Prediabetes most recent A1c of 5.0-rhvea-acur treatment with long-term healthy lifestyle change, decreased [...] join the gym and start with a six sigma black trainer. She should consider pool therapy/ water therapy. She needs to try to keep her trigger foods out of the house. She is to try to find healthier desserts and she tends to like to have 1 after each meal. Lately her cravings for sweets have been decreased. She continues to work with our cleat layer. She understands the need for preplanning, following the plate method, having healthy foods around, keeping unhealthy foods out of her house and eating healthy Whole Foods. She does not like to cook or prep. She understands that shopping, chopping and preplanning so that she can eat healthy foods is essential to her recovery. She will continue to work with our cleat layer. We could consider Wellbutrin in the future [...] lab work and TSH with her PCP. [facility] Work Phone: 1([phone]) 500-459102-01-2024 Evaluation note* Encounter Date Diagnosis Assessment Notes Treatment Notes Treatment Clinical Notes Nov, Hypothyroidism (ICD-10 - E03.9) Pt due for labs - will recheck Nov, Elevated fasting glucose (ICD-10 - R73.01) Continue healthy diet and exercise as able. [facility] Other 01-17-2024 Evaluation note* Encounter Date Diagnosis Assessment Notes Treatment Notes Treatment Clinical Notes Oct, Aftercare following joint replacement surgery (ICD-10 - Z47.1) Oct, Presence of right artificial hip joint (ICD-10 - Z96.641) Oct, Other [facility] on 09/03/2023 Doing well Patient may continue increasing activities as tolerated. Continue taking pccn-ktp-tuauumd anti-inflammatorie s as needed for assistance with swelling and pain associated with the operative extremity. Follow-up in 6 weeks for repeat examination and repeat x-rays. [facility] Other 01-15-2024 Evaluation note* Encounter Date Diagnosis Assessment Notes Treatment Notes Treatment Clinical Notes Oct, Obesity (ICD-10 - E66.9) Oct, BMI 40.0-44.9, adult (ICD-10 - Z68.41) Oct, Other Summary of Visi t: (A) Discussed including more vegetables (B) Discussed plant proteins (C) Provided recipes [facility] Other 01-02-2024 Evaluation note* Encounter Date Diagnosis Assessment Notes Treatment Notes Treatment Clinical Notes Oct, Hypothyroidism (ICD-10 - E03.9) [facility] Other 12-20-2023 Evaluation note* Encounter Date Diagnosis [...] right artificial hip joint (ICD-10 - Z96.641) [facility] Other 12-19-2023 Evaluation note* Encounter Date Diagnosis [...] Aug, Metabolic syndrome X (ICD-10 - E88.81) [facility] Other 12-19-2023 Evaluation note* Author Rolando Castellanos [facility] Authored November 22, 2023 11:47am [...] given. 1. Prediabetes most recent A1c of 5.3-yoyow-yyti treatment with long-term healthy lifestyle change, decreased [...] house. She continues to work with our cleat layer. She understands the need for preplanning, following the plate method, having healthy foods around, keeping unhealthy foods out of her house and eating healthy Whole Foods. She does not like to cook or prep. She understands that shopping, chopping and preplanning so that she can eat healthy foods is essential to her recovery. She will continue to work with our cleat layer. We could consider Wellbutrin in the future [...] lab work and TSH with her PCP. [facility] Work Phone: 1(251) 964-604212-18-2023 Evaluation note* Encounter Date Diagnosis Assessment Notes Treatment Notes Treatment Clinical Notes Aug, Obesity (ICD-10 - E66.9) Aug, BMI 40.0-44.9, adult (ICD-10 - Z68.41) Aug, Other Summary of Visi t: (A) Discussed including more vegetables (B) Answered general nutrition-related questions (C) DIscussed options for including more water [facility] Other 12-01-2023 Evaluation note* Encounter Date Diagnosis [...] patient could proceed with surgery safely. The land manager was vital for surgery timing and [...] plans. Prolonged services time spent: 31 minutes [facility] Other 11-30-2023 Evaluation note* Encounter Date Diagnosis [...] therapy arrives. Joints Meeting Checklist - Pharmacy: [facility] - Approach/Technique: anterior, North bed - Implants: Avenir Complete/G7; - Anesthesia: general vs spinal - Blocks: Fascia iliaca - Preop Antibiotics: Ancef and Vanco - TXA: yes-systemic - Positioning/OR Bed: supine on North bed - Intraop X-ray: yes - Alejandra: [...] above surgery. OARRS report generated and reviewed. [facility] Other 11-21-2023 Evaluation note* Encounter Date Diagnosis [...] symptoms. Any developing patterns. Stay well hydrated. [facility] Other 11-13-2023 Evaluation note* Encounter Date Diagnosis Assessment Notes Treatment Notes Treatment Clinical Notes Aug, Obesity (ICD-10 - E66.9) Aug, BMI 40.0-44.9, adult (ICD-10 - Z68.41) Aug, Other Summary of Visi t: (A) Continue current regimen (B) Much emotional support provided today (C) Encouraged continued follow up with counselor [facility] Other 10-31-2023 Evaluation note* Encounter Date Diagnosis Assessment Notes Treatment Notes Treatment Clinical Notes Jul, Acute laryngitis (ICD-10 - J04.0) Patient denies bacterial infection symptoms such as fever facial pressure or chills. Patient has not taken a COVID test. Discussed igji-foe-fbrojpu medications to use along with steroid pills that can improve her discomfort and laryngitis going forward. Advised that the steroids could elevate her blood sugar and to be mindful of that accordingly. [facility] Other 10-26-2023 Evaluation note* Encounter Date Diagnosis [...] Jul, Metabolic syndrome X (ICD-10 - E88.81) [facility] Other 10-26-2023 Evaluation note* Encounter Date Diagnosis Assessment Notes Treatment Notes Treatment Clinical Notes Jul, Other residential (current) drug therapy (ICD-10 - Z79.899) Jul, Other osteoporosis without current pathological fracture (ICD-10 - M81.8) Jul, Osteoarthritis of right hip (ICD-10 - M16.11) [facility] Other 10-23-2023 Evaluation note* Encounter Date Diagnosis Assessment Notes Treatment Notes Treatment Clinical Notes Jul, Obesity (ICD-10 - E66.9) Jul, BMI 40.0-44.9, adult (ICD-10 - Z68.41) Jul, Other Summary of Visi t: (A) Continue current regimen (B) Discussed ways to include more water (C) Discussed ways to include more vegetables [facility] Other 09-27-2023 Evaluation note* Encounter Date Diagnosis [...] the patient works on weight loss management. [facility] Other 09-18-2023 Evaluation note* Encounter Date Diagnosis [...] meals available that fit the plate method [facility] Other 09-14-2023 Evaluation note* Encounter Date Diagnosis [...] Jun, Metabolic syndrome X (ICD-10 - E88.81) [facility] Other 09-11-2023 Evaluation note* Encounter Date Diagnosis [...] E55.9) discussed supplementation. will check D level. [facility] Other 08-28-2023 Evaluation note* Encounter Date Diagnosis Assessment Notes Treatment Notes Treatment Clinical Notes May, Hypothyroidism (ICD-10 - E03.9) [facility] Other 08-14-2023 Evaluation note* Encounter Date Diagnosis Assessment Notes Treatment Notes Treatment Clinical Notes May, Obesity (ICD-10 - E66.9) May, BMI 40.0-44.9, adult (ICD-10 - Z68.41) May, Other Summary of Visi t: (A) Discussed cooking various foods (B) Find control in indulgences (C) Reviewed the plate method [facility] Other 07-17-2023 Evaluation note* Encounter Date Diagnosis Assessment Notes Treatment Notes Treatment Clinical Notes Mar, Obesity (ICD-10 - E66.9) Mar, BMI 40.0-44.9, adult (ICD-10 - Z68.41) Mar, Other Summary of Visi t: (A) Discussed cooking various foods (B) Find control in indulgences (C) emphasize self-care [facility] Other 05-17-2023 NotePROCEDURE: XR FOOT LT MIN [...] Electronically authenticated by: ARIELA SCHWAB Date: 2023-02-14 06:48[facility]04-13-2023 Evaluation note* Encounter Date Diagnosis Assessment Notes [...] 2. Increase veggies, follow the plate method [facility] Other 03-14-2023 Evaluation note* Encounter Date Diagnosis Assessment Notes Treatment Notes Treatment Clinical Notes Nov, Abnormal laboratory test result (ICD-10 - R89.9) [facility] Other 03-08-2023 NoteOPERATIVE NOTE OPERATION DATE: 12/06/2022 [...] in 10 years. CC: Waqas Pierce M.D.[facility] [id number] Evaluation note* Encounter Date Diagnosis Assessment Notes [...] - M16.10) Nov, Hypertension (ICD-10 - I10) [facility] Other 02-14-2023 Evaluation note* Encounter Date Diagnosis [...] patient set personal goal using given handout. [facility] Other 02-08-2023 NoteChief Complaint consultation for colonoscopy [...] Years., 11/08/2022 Family History (more content not included)...[facility]:Result Comment: Electronically Signed By: SOPHIA PINEDA, Efrain Layne\Date and Time Signed: 11/08/22 15:29 [id number] Evaluation note* Encounter Date Diagnosis Assessment Notes [...] - G47.33) presently compliant with machine, etc [facility] Other 01-13-2023 Evaluation note* Encounter Date Diagnosis [...] Patient is interested in meeting with our rn baby, telephone encounter started to connect with her [...] the week. Encouraged to take advantage of rn baby available at [facility] that can help work around limitations. She is open to meeting with our rn baby for guidance on exercises she can complete with her severe limitations from her foot, hip and back. Telephone encounter started. Oct, Plantar fasciitis (ICD-10 - M72.2) Oct, Arthritis of hip (ICD-10 - M16.10) Oct, Impaired fasting glucose (ICD-10 - R73.01) [facility] Other 12-07-2022 Evaluation note* Encounter Date Diagnosis [...] while she works on her weight loss. [facility] Other 11-18-2022 NotePROCEDURE: XR HIP RT 2 [...] Electronically authenticated by: SHAWNEE KELLY Date: 2022-08-18 15:54[facility]11-18-2022 NotePROCEDURE: XR FOOT LT MIN 3 VIEWS [...] Electronically authenticated by: SHAWNEE KELLY Date: 2022-08-18 15:42[facility]09-16-2022 NotePROCEDURE: XR FOOT LT MIN 3 VIEWS, [...] Electronically authenticated by: SHAWNEE KELLY Date: 2022-06-16 16:24[facility]09-16-2022 NotePROCEDURE: XR FOOT LT MIN 3 VIEWS, [...] Electronically authenticated by: SHAWNEE KELLY Date: 2022-06-16 16:24[facility]08-11-2022 NotePROCEDURE: XR FOOT LT MIN 3 VIEWS COMPARISON: 04/24/2022 HISTORY: Pain in left foot FINDINGS: BONES:Stable postsurgical changes with subtalar fusion, medial midfoot hindfoot fusion and spacer at the first tarsometatarsal joint. No mechanical failure. Severe degenerative changes. SOFT TISSUES:Extensive soft tissue swelling.Dorsal woundvac EFFUSION:None visible. OTHER: Negative. IMPRESSION: Stable degenerative and post surgical changes Electronically authenticated by: SHAWNEE KELLY Date: 2022-05-11 17:16[facility]07-25-2022 NotePROCEDURE: XR FOOT LT MIN 3 VIEWS [...] Electronically authenticated by: ARIELA SCHWAB Date: 2022-04-24 14:11[facility]07-25-2022 NotePROCEDURE: XR FOOT LT 2V HISTORY: Pain [...] Electronically authenticated by: ARIELA SCHWAB Date: 2022-04-24 11:54[facility]07-23-2022 NotePROCEDURE: XR FOOT LT MIN 3 VIEWS [...] Electronically authenticated by: ARIELA SCHWAB Date: 2022-04-22 20:52[facility]07-15-2022 NotePROCEDURE: XR FOOT LT MIN 3 VIEWS [...] authenticated by: SHAWNEE KELLY Date: 2022-04-14 17:03[facility] [id number] Evaluation note* Encounter Date Diagnosis Assessment Notes [...] Patient care instructions given in writting by [facility] document. [facility] Other 09-23-2021 Evaluation note* Encounter Date Diagnosis [...] note writ ten by Safia Calderon CMA, [employer]. Edited and approved by Dr. Junior Mcgowan MD. [facility] [employer] Other Evaluation + Plan note No data available for this section General Surgery Mary Evaluation noteNo InformationNortRegional Hospital of Scranton [employer] Other Evaluation noteNo assessment information available [facility] Work Phone: Evaluation note* Diagnosis Onset Date Resolution Status Change in voice acute Essential (primary) hypertension acute Family history of von Willebrand disease acute Hyperlipidemia acute Hypothyroidism acute [facility] Work Phone: Evaluation note* Diagnosis Onset Date Resolution Status Change in voice acute Essential (primary) hypertension acute Family history of von Willebrand disease acute Hyperlipidemia acute Hypothyroidism acute Medicare annual wellness visit, subsequent acute [facility] Work Phone: Evaluation note* Diagnosis Well woman exam with routine gynecological exam Routine gynecological examination Postmenopausal state Asymptomatic postmenopausal status (age-related) (natural) Encounter for screening mammogram for malignant neoplasm of breast Urinary retention Unspecified retention of urine Mixed stress and urge urinary incontinence Mixed incontinence urge and stress (male)(female) Cervical polyp Mucous polyp of cervix documented in this encounter [facility] HealthcareEvaluation note* Diagnosis Urge incontinence of urine- Primary Urge incontinence Nocturnal enuresis Unprotected sexual intercourse Problems related to high-risk sexual behavior OAB (overactive bladder) documented [facility]* Diagnosis Paraesophageal hernia- Primary Diaphragmatic hernia without mention of obstruction or gangrene documented in this encounter [facility] HealthEvaluation note* Diagnosis OAB (overactive bladder)- Primary Urge incontinence of urine Urge incontinence Nocturnal enuresis documented in this encounter [facility] SystemHistory and physical note Author Esau Busch [facility] Note Date/Time October 07, 2024 1: 35pm [facility] [address] [place] [address] Gastroenterology H&P Signed Patient: Nicol Smith MR#: [id number] : 1960 Acct:[id number] Age/Sex: 64 / F Adm Date: 5 [...] MD Documented By: Esau Busch MD 10/07/24 1333 Signed By: <Electronically signed by Esau Busch MD> 10/07/24 1331 [facility] Work Phone: Hiswgrg general Narrative - Reported* Type Description Date Medical History DDD (degenerative disc disease), lumbar Surgical History hip replacement Surgical History tonsillectomy Surgical History carpal tunnel release bilateral Hospitalization History see above [facility] Other History general Narrative - Reported* Type Description Date Medical History DDD (degenerative disc disease), lumbar Medical History spinal stenosis Surgical History hip replacement Surgical History tonsillectomy Surgical History carpal tunnel release bilateral Surgical History vein ablasion Hospitalization History see above [facility] Other Hispdhv general Narrative - Reported* Type Description Date Medical History DDD (degenerative disc disease), lumbar Medical History spinal stenosis Surgical History hip replacement Surgical History tonsillectomy Surgical History carpal tunnel release bilateral Surgical History vein ablasion Surgical History skin graft left foot Hospitalization History see above [facility] Other Hisgwnz general Narrative - Reported* Type Description Date [...] x3 202 2 Hospitalization History see above [facility] Other History general Narrative - Reported* Type [...] HIp replacement 09/03/23 Hospitalization History see above [facility] Other Hospital Discharge instructions No data available for this section General Surgery [facility] Discharge instructions Additional Instructions Joint Replacement Discharge Instructions Your safety during your recovery process is important to us. Please seek immediate emergency care if you have sudden chest pain or shortness of breath. Additionally, please call our office at [phone] should any of the following occur: wound [...] to walk without your walker and your inpatient care manager rn until the therapist checks you the following [...] and/or laxatives as directed. You may take czry-exv-phwcgue Benadryl if itching occurs without a rash or hives. Icing and elevation will help relieve pain as well, do not underestimate the power of ice and elevation. We do recommend that you stop taking narcotic pain medications by 4-6 weeks after surgery and if necessary, continue to use anti-inflammatory medications such as Mobic (meloxicam), Celebrex (celecoxib), or an cqdw-fra-yjbnjhd medication (Aleve, Motrin, Ibuprofen, etc). Driving an [...] feel free to call our office at [phone]. You are a priority of ours and we will not be upset with you if you call. We would much rather you call to confirm aspects of your recovery process as opposed to possibly hindering your recovery with inappropriate care. We are committed to providing you with the best care possible. David Mcfarland II, MD Updated 12/15/2022[facility] Work Phone: Hospital Discharge instructionsAmbulatory Orders* Referral to Thoracic Surgery Time Frame: 11/04/24, Location: None [facility] Work Phone: Hospital Discharge instructions Additional Instructions Eat slowly. Avoid nausea and vomiting. May remove surgical dressings and shower. Recover with fresh band aids daily until healed. No driving if taking [facility]onesPro[facility] Work Phone: InstructionsNot on filedocumented in this encounter [facility]InstructionsNot on filedocumented in this encounter [facility] SystemInstructionsNot on filedocumented in this encounter [facility] SystemInstructionsNot on filedocumented in this encounter [facility] SystemProgress note No data available for this section General Surgery Danielson reason for referral (narrative)* Reason Appt: Diagnosis 1 Depression (F32.9) Referral Organization [facility] Referring Provider First Name Rolando Referring Provider Last Name Jasmin Referring Provider Specialty Internal Me dicine Referred Organization [facility] [place] Referred Address [address] [place], [place],[address] Referred Provider Specialty Karina s Referral Priority Routine General Notes Anna Jose 2022 01:07:39 PM >Please contact patient to schedule. [facility] Other Reason for referral (narrative)No reason for referral information availableSelect [facility] Work Phone: reason for visit Narrative* Auth/Cert Specialty Diagnoses / Procedures Referred By Ayla mejia Referred To Contact Diagnoses Paraesophageal hernia Procedures [place] LAPS RPR PARAESPHGL HRNA INCL FUNDPLSTY W/O MESH laparoscopic recurrent paraesopageal hernia repair, PAT 03/17/25 @ 11a Paulino Hughes MD [address] [place] [address] Phone: tel: fax: [facility] [address] [place] [address] Referral ID Status Reason Start Date Expiration Date Visits Re quested Visits Authorized [id number] 1 1 [facility] Summary Purpose Family History No Family History [...] Heart disease Unknown Unknown mother Osteoarthritis Unknown Primary malignant ne [...] Advance Directives No July 17, 2018 2:24pm Date Activated Date Inactivated Comments 03/24/2025 4:05 PM Date Activated Date Inactivated Comments 03/24/2025 8:46 AM 03/24/2025 4:05 PM Date Activated Date Inactivated Comments 03/24/2025 8:21 AM 03/24/2025 8:46 AM Healthcare Agents on File Name Relationship Healthcare Agent [facility] Communication Bell Stringer Child Primary Decision Maker Omar Smith Child Secondary Decision Make r Chief Complaint and Reason for Visit Chief [...] RD WM f/u Sick-Did not test for [id number] Reason for Visit Sinusitis, acute max illary BMI 40.0-44.9, adult Fatty liver Hyperlipidemia Hypertension Pre-diabetes Aftercare following joint replacement Chest congestion Cough Chief Complaint Rd Wm F/U Obesity z47.[address] WM f/u Sinus infection WMN F/UP Z47.1 - Aftercare following joint replacement surg [address] WM f/u Sick-Did not test for [id number] Reason for Visit Sinusitis, acute max illary BMI 40.0-44.9, adult Fatty liver Hyperlipidemia Hypertension Pre-diabetes Aftercare following joint replacement Bronchitis Chest congestion Cough Chief Complaint Rd Wm F/U Obesity z47.[address] WM f/u BH Sinus infection WMN F/UP Z47.1 - Aftercare following joint replacement surg [address] WM f/u Sick-Did not test for [id number] RD WM f/u Reason for Visit Sinusitis, acute max illary BMI 40.0-44.9, adult Fatty liver Hyperlipidemia Hypertension Pre-diabetes Aftercare following joint replacement Bronchitis Chest congestion Cough BMI 40.0-44.9, adult Fatty liver Hyperlipidemia Pre-diabetes Chief Complaint z47.[address] WM f/u Sinus infection WMN F/UP Z47.1 - Aftercare following joint replacement surg [address] WM f/u Sick-Did not test for [id number] RD WM f/u Habit forming Reason for Visit Sinusitis, acute max illary BMI 40.0-44.9, adult Fatty liver Hyperlipidemia Hypertension Pre-diabetes Aftercare following joint replacement Bronchitis Chest congestion Cough BMI 40.0-44.9, adult Fatty liver Hyperlipidemia Pre-diabetes Chief Complaint Z47.1 - [place] [address] WM f/u Sick-Did not test for [id number] RD WM f/u Habit forming Reason for Visit Aftercare following joint replacement Bronchitis Chest congestion Cough BMI 40.0-44.9, adult Fatty liver Hyperlipidemia Pre-diabetes Chief Complaint RD WM f/u Sick-Did not test for [id number] RD WM f/u Habit forming Reason for [...] replac ement surg August 27, 2024 12:42pm September 11, 2024 11:25am Amb Documentation September [...] August 1:42pm Aftercare following joint replacement No [email or web address] 12:14pm S/P total right hip arthroplasty Novembe r 2023 12:14pm BMI 40.0-44.9, adult September 29, 2024 1:33pm Left lower lobe pneumonia September 29, 2024 1:33pm Chief Complaint Admit Date Infusion f/u August 04, 2024 1 0:40am sinus infection August 25, 2024 1:42pm 9 months August 27, 2024 12:14pm Z47.1 - Aftercare following joint replac ement surg August 27, 2024 12:42pm Amb Documentation September 18, 2024 9:49am ER f/u pneumonia September 29, 2024 1:33pm BH October 06, 2024 9: 44am gerd/dyspepsia October 07, 2024 11 :41am CC Adult Risk Stratification October 1:15pm gerd/dyspepsia October 07, 2024 1: 34pm Discuss XR Results/Order CT October 9:36am Reason for Visit Admit Date Anemia August 04, 2024 1 0:40am Bloating August 04, 2024 1 0:40am Chronic low back pain August 04, 2024 10:40am Fatty liver August 04, 2024 1 0:40am Sinusitis, acute maxillary August 1:42pm Aftercare following joint replacement No [email or web address] 12:14pm S/P total right hip arthroplasty Novembe r 2023 12:14pm BMI 40.0-44.9, adult September 29, 2024 1:33pm Left lower lobe pneumonia September 29, 2024 1:33pm Discogenic thoracic pain October 28, 2 025 9:36am Chief Complaint Admit Date sinus infection August 25, 2024 1:42pm 9 months August 27, 2024 12:14pm Z47.1 - Aftercare following joint replac ement surg August 27, 2024 12:42pm Amb Documentation September 18, 2024 9:49am ER f/u pneumonia September 29, 2024 1:33pm BH October 06, 2024 9: 44am gerd/dyspepsia October 07, 2024 11 :41am CC Adult Risk Stratification October 1:15pm gerd/dyspepsia October 07, 2024 1: 34pm Discuss XR Results/Order CT October 9:36am L neck pain w/tension headache November 03, 2024 11:30am Ref: anemia/fatty liver/ abdominal diste nstion November 04, 2024 10:33am Reason for Visit Admit Date Sinusitis, acute maxillary August 1:42pm Aftercare following joint replacement No vember 2023 12:14pm S/P total right hip arthroplasty Novembe r 2023 12:14pm BMI 40.0-44.9, adult September 29, 2024 1:33pm Left lower lobe pneumonia September 29, 2024 1:33pm Discogenic thoracic pain October 28, 2 025 9:36am Fatty liver November 04, 2024 1 0:33am Non-cardiac chest pain November 04 10:33am Paraesophageal hernia November 04, 2024 10:33am Chief Complaint Admit Date sinus infection August 25, 2024 1:42pm 9 months August 27, 2024 12:14pm Z47.1 - Aftercare following joint replac ement surg August 27, 2024 12:42pm Amb Documentation September 18, 2024 9:49am ER f/u pneumonia September 29, 2024 1:33pm gerd/dyspepsia October 07, 2024 11 :41am CC Adult Risk Stratification October 1:15pm gerd/dyspepsia October 07, 2024 1: 34pm Discuss XR Results/Order CT October 9:36am BH October 29, 2024 1 1:53am Ref: anemia/fatty liver/ abdominal diste nstion November 04, 2024 10:33am L neck pain w/tension headache November 10, 2024 11:15am K76.0 November 11, 2024 7:32am Reason for Visit Admit Date Sinusitis, acute maxillary August 1:42pm Aftercare following joint replacement No vember 2023 12:14pm S/P total right hip arthroplasty Novembe r 2023 12:14pm BMI 40.0-44.9, adult September 29, 2024 1:33pm Left lower lobe pneumonia September 29, 2024 1:33pm Discogenic thoracic pain October 28, 2 025 9:36am Pre-diabetes October 28, 2024 9 :36am Fatty liver November 04, 2024 1 0:33am Non-cardiac chest pain November 04 10:33am Paraesophageal hernia November 04, 2024 10:33am Chief Complaint Admit Date sinus infection August 25, 2024 1:42pm 9 months August 27, 2024 12:14pm Z47.1 - Aftercare following joint replac ement surg August 27, 2024 12:42pm Amb Documentation September 18, 2024 9:49am ER f/u pneumonia September 29, 2024 1:33pm gerd/dyspepsia October 07, 2024 11 :41am CC Adult Risk Stratification October 1:15pm gerd/dyspepsia October 07, 2024 1: 34pm Discuss XR Results/Order CT October 9:36am BH October 29, 2024 1 1:53am Ref: anemia/fatty liver/ abdominal diste nstion November 04, 2024 10:33am K76.0 November 11, 2024 7:32am L neck pain w/tension headache November 13, 2024 10:30am fatty liver November 13, 2024 11:59am Chief Complaint Admit Date Amb Documentation September 18, 2024 9:49am ER f/u pneumonia September 29, 2024 1:33pm gerd/dyspepsia October 07, 2024 11 :41am CC Adult Risk Stratification October 1:15pm gerd/dyspepsia October 07, 2024 1: 34pm Discuss XR Results/Order CT October 9:36am BH October 29, 2024 1 1:53am Ref: anemia/fatty liver/ abdominal diste nstion November 04, 2024 10:33am K76.0 November 11, 2024 7:32am fatty liver November 13, 2024 11:59am L neck pain w/tension headache November 24, 2024 11:00am Reason for Visit Admit Date BMI 40.0-44.9, adult September 29, 2024 1:33pm Left lower lobe pneumonia September 29, 2024 1:33pm Discogenic thoracic pain October 28, 2 025 9:36am Pre-diabetes October 28, 2024 9 :36am Fatty liver November 04, 2024 1 0:33am Non-cardiac chest pain November 04 10:33am Paraesophageal hernia November 04, 2024 10:33am Chief Complaint Admit Date Amb Documentation September 18, 2024 9:49am ER f/u pneumonia September 29, 2024 1:33pm gerd/dyspepsia October 07, 2024 11 :41am CC Adult Risk Stratification October 1:15pm gerd/dyspepsia October 07, 2024 1: 34pm Discuss XR Results/Order CT October 9:36am BH October 29, 2024 1 1:53am Ref: anemia/fatty liver/ abdominal diste nstion November 04, 2024 10:33am K76.0 November 11, 2024 7:32am fatty liver November 13, 2024 11:59am L neck pain w/tension headache November 24, 2024 11:00am Hernia December 02, 2024 3:03 pm Chief Complaint Admit Date Amb Documentation September 18, 2024 9:49am ER f/u pneumonia September 29, 2024 1:33pm gerd/dyspepsia October 07, 2024 11 :41am CC Adult Risk Stratification October 1:15pm gerd/dyspepsia October 07, 2024 1: 34pm Discuss XR Results/Order CT October 9:36am BH October 29, 2024 1 1:53am Ref: anemia/fatty liver/ abdominal diste nstion November 04, 2024 10:33am K76.0 November 11, 2024 7:32am fatty liver November 13, 2024 11:59am L neck pain w/tension headache November 24, 2024 11:00am Hernia December 02, 2024 3:03 pm Amb Documentation December 04, 2024 2:24 pm Pre-Surgical Clearance December 09, 2024 11:32am Chief Complaint Admit Date Amb Documentation September 18, 2024 9:49am ER f/u pneumonia September 29, 2024 1:33pm gerd/dyspepsia October 07, 2024 11 :41am CC Adult Risk Stratification October 1:15pm gerd/dyspepsia October 07, 2024 1: 34pm Discuss XR Results/Order CT October 9:36am BH October 29, 2024 1 1:53am Ref: anemia/fatty liver/ abdominal diste nstion November 04, 2024 10:33am K76.0 November 11, 2024 7:32am fatty liver November 13, 2024 11:59am L neck pain w/tension headache November 24, 2024 11:00am Hernia December 02, 2024 3:03 pm Amb Documentation December 04, 2024 2:24 pm Pre-Surgical Clearance December 09, 2024 11:32am K44.9 December 10, 2024 8:4 4am Reason for Visit Admit Date BMI 40.0-44.9, adult September 29, 2024 1:33pm Left lower lobe pneumonia September 29, 2024 1:33pm Discogenic thoracic pain October 28, 2 025 9:36am Pre-diabetes October 28, 2024 9 :36am Fatty liver November 04, 2024 1 0:33am Paraesophageal hernia November 04, 2024 10:33am Non-cardiac chest pain November 04 10:33am HERRERA (obstructive sleep apnea) November 11:32am Paraesophageal hernia December 09, 2024 1 1:32am Preoperative examination December 09 11:32am Chief Complaint Admit Date Amb Documentation September 18, 2024 9:49am ER f/u pneumonia September 29, 2024 1:33pm gerd/dyspepsia October 07, 2024 11 :41am CC Adult Risk Stratification October 1:15pm gerd/dyspepsia October 07, 2024 1: 34pm Discuss XR Results/Order CT October 9:36am BH October 29, 2024 1 1:53am Ref: anemia/fatty liver/ abdominal diste nstion November 04, 2024 10:33am K76.0 November 11, 2024 7:32am fatty liver November 13, 2024 11:59am L neck pain w/tension headache November 24, 2024 11:00am Hernia December 02, 2024 3:03 pm Amb Documentation December 04, 2024 2:24 pm Pre-Surgical Clearance December 09, 2024 11:32am K44.9 December 10, 2024 8:4 4am Hernia December 12, 2024 5:4 0am Reason for Visit Admit Date BMI 40.0-44.9, adult September 29, 2024 1:33pm Left lower lobe pneumonia September 29, 2024 1:33pm Discogenic thoracic pain October 28, 025 9:36am Pre-diabetes October 28, 2024 9 :36am Fatty liver November 04, 2024 1 0:33am Paraesophageal hernia November 04, 2024 10:33am Non-cardiac chest pain November 04 10:33am HERRERA (obstructive sleep apnea) November 11:32am Paraesophageal hernia December 09, 2024 1 1:32am Preoperative examination December 09 11:32am Hypertension December 12, 2024 5:4 0am Hypothyroidism December 12, 2024 5:4 0am Paraesophageal hernia December 12, 2024 5 :40am Chief Complaint Admit Date ER f/u pneumonia September 29, 2024 1:33pm gerd/dyspepsia October 07, 2024 11 :41am CC Adult Risk Stratification October 1:15pm gerd/dyspepsia October 07, 2024 1: 34pm Discuss XR Results/Order CT October 9:36am BH October 29, 2024 1 1:53am Ref: anemia/fatty liver/ abdominal diste nstion November 04, 2024 10:33am K76.0 November 11, 2024 7:32am fatty liver November 13, 2024 11:59am L neck pain w/tension headache November 24, 2024 11:00am Hernia December 02, 2024 3:03 pm Amb Documentation December 04, 2024 2:24 pm Pre-Surgical Clearance December 09, 2024 11:32am K44.9 December 10, 2024 8:4 4am Hernia December 12, 2024 5:4 0am Amb Documentation December 17, 2024 10: 13am [facility]; surgery Dr. Hughes December 19, 2024 9:27am Reason for Visit Admit Date BMI 40.0-44.9, adult September 29, 2024 1:33pm Left lower lobe pneumonia September 29, 2024 1:33pm Discogenic thoracic pain October 28, 2 025 9:36am Pre-diabetes October 28, 2024 9 :36am Fatty liver November 04, 2024 1 0:33am Paraesophageal hernia November 04, 2024 10:33am Non-cardiac chest pain November 04 10:33am HERRERA (obstructive sleep apnea) November 11:32am Preoperative examination December 09 11:32am Paraesophageal hernia December 09, 2024 1 1:32am Hypertension December 12, 2024 5:4 0am Hypothyroidism December 12, 2024 5:4 0am Paraesophageal hernia December 12, 2024 5 :40am Chief Complaint Admit Date K76.0 November 11, 2024 7:32am fatty liver November 13, 2024 11:59am L neck pain w/tension headache November 24, 2024 11:00am Hernia December 02, 2024 3:03 pm Amb Documentation December 04, 2024 2:24 pm Pre-Surgical Clearance December 09, 2024 11:32am K44.9 December 10, 2024 8:4 4am Hernia December 12, 2024 5:4 0am Amb Documentation December 17, 2024 10: 13am [facility]; surgery Dr. Hughes December 19, 2024 9:27am 3 month follow up February 03, 2025 10:07a m Reason for Visit Admit Date HERRERA (obstructive sleep apnea) November 11:32am Paraesophageal hernia December 09, 2024 1 1:32am Preoperative examination December 09 11:32am Hypertension December 12, 2024 5:4 0am Hypothyroidism December 12, 2024 5:4 0am Paraesophageal hernia December 12, 2024 5 :40am Chronic low back pain December 19, 2024 9 :27am Constipation December 19, 2024 9:2 7am Paraesophageal hernia December 19, 2024 9 :27am Fatty liver February 03, 2025 10:07a m GERD (gastroesophageal reflux disease) M ay 2024 10:07am Chief Complaint Admit Date L neck pain w/tension headache November 24, 2024 11:00am Hernia December 02, 2024 3:03 pm Amb Documentation December 04, 2024 2:24 pm Pre-Surgical Clearance December 09, 2024 11:32am K44.9 December 10, 2024 8:4 4am Hernia December 12, 2024 5:4 0am Amb Documentation December 17, 2024 10: 13am [facility]; surgery Dr. Hughes December 19, 2024 9:27am 3 month follow up February 03, 2025 10:07a m leg and feet swelling/pain February 09 1:03pm Reason for Visit Admit Date HERRERA (obstructive sleep apnea) November 11:32am Paraesophageal hernia December 09, 2024 1 1:32am Preoperative examination December 09 11:32am Hypertension December 12, 2024 5:4 0am Hypothyroidism [...] left lower extremity February 09, 2025 1:03pm Chief Complaint Admit Date Amb Documentation December 04, 2024 2:24 pm Pre-Surgical Clearance December 09, 2024 11:32am K44.9 December 10, 2024 8:4 4am Hernia December 12, 2024 5:4 0am Amb Documentation December 17, 2024 10: 13am [facility]; surgery Dr. Hughes December 19, 2024 9:27am 3 month follow up February 03, 2025 10:07a m leg and feet swelling/pain February 09 1:03pm R10.10 Z87.19 February 16, 2025 7:34a m r93.5 March 02, 2025 12:16 pm Chief Complaint Admit Date Pre-Surgical Clearance December 09, 2024 11:32am K44.9 December 10, 2024 8:4 4am Hernia December 12, 2024 5:4 0am Amb Documentation December 17, 2024 10: 13am [facility]; surgery Dr. Hughes December 19, 2024 9:27am 3 month follow up February 03, 2025 10:07a m leg and feet swelling/pain February 09 1:03pm R10.10 Z87.February 16, 2025 7:34a m r93.5 March 02, 2025 12:16 pm BACK PAIN March 05, 2025 1:45p m Reason for Visit Admit Date HERRERA (obstructive sleep apnea) November 11:32am Paraesophageal hernia December 09, 2024 1 1:32am Preoperative examination December 09 11:32am Hypertension December 12, 2024 5:4 0am Hypothyroidism [...] Lumbar stenosis March 05, 2025 1:45p m Chief Complaint Admit Date Hernia December 12, 2024 5:4 0am Amb Documentation December 17, 2024 10: 13am [facility]; surgery Dr. Hughes December 19, 2024 9:27am [...] Lumbar stenosis March 05, 2025 1:45p m Chief Complaint Admit Date 3 month follow up February 03, 2025 10:07a m leg and feet swelling/pain February 09 1:03pm R10.10 Z87.19 February 16, 2025 7:34a m r93.5 March 02, 2025 12:16 pm BACK PAIN March 05, 2025 1:45p m 3m f/u hiatal hernia/GERD/Fatty Liver Ju ne 2024 9:37am Amb Documentation March 31, 2025 11:20 am Hernia surgery f/u April 07, 2025 11:32 am Reason for Visit Admit Date Dyspepsia February 03, 2025 10:07a m Fatty [...] Lumbar stenosis March 05, 2025 1:45p m Constipation March 11, 2025 9:37 am Dyspepsia March 11, 2025 9:37 am GERD (gastroesophageal reflux disease) J une 2024 9:37am Paraesophageal hiatal hernia March 11, 2025 9:37am Chief Complaint Admit Date r93.5 March 02, 2025 12:16 pm BACK PAIN March 05, 2025 1:45p m 3m f/u hiatal hernia/GERD/Fatty Liver Ju ne 2024 9:37am Amb Documentation March 31, 2025 11:20 am Hernia surgery f/u April 07, 2025 11:32 am Z98.890 Z87.19 R13.10 May 21, 2025 7:17am Reason for Visit Admit Date Greater trochanteric bursitis of both hi ps March 05, 2025 1:45pm Inflammation of both sacroiliac joints J une 2024 1:45pm Low back pain March 05, 2025 1:45p m Lumbar stenosis March 05, 2025 1:45p m Constipation March 11, 2025 9:37 am Dyspepsia March 11, 2025 9:37 am GERD (gastroesophageal reflux disease) J une 2024 9:37am Paraesophageal hiatal hernia March 11, 2025 9:37am History of pyloroplasty April 07, 2025 1 1:32am Lumbar stenosis April 07, 2025 11:32 am Paraesophageal hiatal hernia April 07, 2 025 11:32am S/P repair of paraesophageal hernia April 07, 2025 11:32am Chief Complaint Admit Date r93.5 March 02, 2025 12:16 pm BACK PAIN March 05, 2025 1:45p m 3m f/u hiatal hernia/GERD/Fatty Liver Ju ne 2024 9:37am Amb Documentation March 31, 2025 11:20 am Hernia surgery f/u April 07, 2025 11:32 am Z98.890 Z87.19 R13.10 May 21, 2025 7:17am Z98.890 Z87.19 R13.10 May 29, 2025 6:38am Chief Complaint Admit Date Amb Documentation March 31, 2025 11:20 am Hernia surgery f/u April 07, 2025 11:32 am Z98.890 Z87.19 R13.10 May 21, 2025 7:17am Z98.890 Z87.19 R13.10 May 29, 2025 6:38am Surgical Clearance June 16, 2025 11:18am Reason for Visit Admit Date History of pyloroplasty April 07, 2025 1 1:32am Lumbar stenosis April 07, 2025 11:32 am Paraesophageal hiatal hernia April 07 025 11:32am S/P repair of paraesophageal hernia April 07, 2025 11:32am Chief Complaint Admit Date Amb Documentation March 31, 2025 11:20 am Hernia surgery f/u April 07, 2025 11:32 am Z98.890 Z87.19 R13.10 May 21, 2025 7:17am Z98.890 Z87.19 R13.10 May 29, 2025 6:38am Surgical Clearance June 16, 2025 11:18am Dysphagia June 19, 2025 5:46am Reason for Visit Admit Date History of pyloroplasty April 07, 2025 1 1:32am Lumbar stenosis April 07, 2025 11:32 am Paraesophageal hiatal hernia April 07, 025 11:32am S/P repair of paraesophageal hernia April 07, 2025 11:32am Gastroesophageal reflux disease with str icture June 16, 2025 11:18am HERRERA (obstructive sleep apnea) June 16, 2025 11:18am Preoperative examination June 16, 2025 11:18am Additional Source Comments INFORMATION SOURCE (unrecogn ized section and content) DATE CREATED AUTHOR 04/29/2021 [facility] DATE CREATED AUTHOR AUTHOR'S ORGANIZ ATION 12/20/2022 [facility] DATE CREATED AUTHOR AUTHOR'S ORGANIZ ATION 03/09/2023 [facility] DATE CREATED AUTHOR AUTHOR'S ORGANIZ ATION 12/02/2024 [facility] DATE CREATED AUTHOR AUTHOR'S ORGANIZ ATION 02/02/2025 [facility] DATE CREATED AUTHOR AUTHOR'S ORGANIZ ATION 03/23/2025 [facility] DATE CREATED AUTHOR AUTHOR'S ORGANIZ ATION 03/25/2025 [facility] DATE CREATED AUTHOR AUTHOR'S ORGANIZ ATION 03/29/2025 [facility] DATE CREATED AUTHOR AUTHOR'S ORGANIZ ATION 05/09/2025 [facility] DATE CREATED AUTHOR AUTHOR'S ORGANIZ ATION 06/20/2025 [facility] REASON FOR VISIT (unrecogniz ed section and content) Reason Comments Follow-up Reason Comments New Patient Urinary Incontinence Specialty Diagnoses / Procedures Referred By Contac t Referred To Contact Urogynecology Diagnoses Urinary incontinence, unspecified type Uday Wray R, DO [address] [place] [address] Phone: tel: fax: Jun Lawson MD [address] [place] [address] Phone: tel: fax: Referral ID Status Reason Start Date Expiration Date Visits Re quested Visits Authorized [id number] Closed 12/04/2024 12/04/2025 1 1 Reason Comments Gynecologic Exam Recheck Right HipDLC refill2 WK POST OPflu and covid vaccine2 month Follow upH&P RTHAPRE OP CLEARACE - RIGHT HIP REPLACEMENTDC BloodworkOP SP RT HIP PAIN, REQUESTING APPT TO DISCUSS WEIGHT LOSS AND STATUS FOR SURGERY, get updated weight todayVit DwellnessRD WM f/iConstipation MedRD WM f/uBEING RELEASEDRD WM 1st after classAPPT CANCELLATIONDC Lab resultsDLC please callWMN from Heatherprescription refillInitial WMNurine cultureBladder Infection/ Possible HerniaDC [facility] LabsmessageHM fax lab requestre-certR INTRA ARTICULAR HIP JOINT INJ/R[facility] PTMEDSCONSULT DR DR Duy PIERCE RT HIP PAIN WXTBH PT WILL BRING ON DISC#31 RED JEEP, H/A, N/V, CONGESTION, COVID Provider VisitFOLLOW UP AFER BONNIE LUMBAR FACET RFAS Care Teams (unrecognized sec tion and content) Team Status: Active Member Role Status Dates Waqas Pierce MD Primary Care Provider Active Team Status: Active Member Role Status Dates Waqas Pierce MD Primary Care Provider Active Start: March 31, 2025 Tara Nicholson CMA Attending Provider Active Start: March 31, 2025 Team Status: Inactive Member Role Status Dates Waqas Pierce MD Primary Care Provider Active Start: April 07, 2025 End: April 07, 2025 Waqas Pierce MD Attending Provider Active St art: April 07, 2025 End: April 07, 2025 Team Status: Inactive Member Role Status Adilia Pierce MD Primary Care Provider Active Start: May 21, 2025 End: May 21, 2025 Paulino Hughes MD Attending Provider Active Start : May 21, 2025 End: May 21, 2025 Team Status: Inactive Member Role Status Adilia Pierce MD Primary Care Provider Active Start: May 29, 2025 End: May 29, 2025 Paulino Hughes MD Attending Provider Active Start : May 29, 2025 End: May 29, 2025 Team Status: Inactive Member Role Status Adilia Pierce MD Primary Care Provider Active Start: June 16, 2025 End: June 16, 2025 Waqas Pierce MD Attending Provider Active St art: June 16, 2025 End: June 16, 2025 Team Status: Inactive Member Role Status Adilia Pierce MD Primary Care Provide r, Attending Provider Active Start: December 09, 2024 End: December 09, 2024 Team Status: Inactive Member Role Status Adilia Pierce MD Primary Care Provider Active Start: December 10, 2024 End: December 10, 2024 Paulino Hughes MD Attending Provider Active Start : December 10, 2024 End: December 10, 2024 Team Status: Inactive Member Role Status Adilia Pierce MD Primary Care Provider Active Start: December 12, 2024 End: December 15, 2024 Paulino Hughes MD Admit Provider, Atte nding Provider Active Start: December 12, 2024 End: December 15, 2024 Team Status: Active Member Role Status Adilia Pierce MD Primary Care Provider Active Start: December 17, 2024 Tara Nicholson CMA Attending Provider Active Start: December 17, 2024 Team Status: Inactive Member Role Status Adilia Pierce MD Primary Care Provide r, Attending Provider Active Start: December 19, 2024 End: December 19, 2024 Team Status: Active Member Role Status Adilia Pierce MD Primary Care Provider Active Start: January 06, 2025 Suze Hurtado MD Attending Provider Active St art: January 06, 2025 Team Status: Inactive Member Role Status Adilia Pierce MD Primary Care Provider Active Start: February 03, 2025 End: February 03, 2025 Mer Kirkland APRN Attending Provider Active Start: February 03, 2025 End: February 03, 2025 Team Status: Inactive Member Role Status Adilia Pierce MD Primary Care Provide r, Attending Provider Active Start: February 09, 2025 End: February 09, 2025 Team Status: Inactive Member Role Status Adilia Pierce MD Primary Care Provider Active Start: February 16, 2025 End: February 16, 2025 Mer Kirkland APRN Attending Provider Active Start: February 16, 2025 End: February 16, 2025 Team Status: Inactive Member Role Status Adilia Pierce MD Primary Care Provider Active Start: March 02, 2025 End: March 02, 2025 Mer Kirkland APRN Attending Provider Active Start: March 02, 2025 End: March 02, 2025 Team Status: Inactive Member Role Status Adilia Pierce MD Primary Care Provider Active Start: March 05, 2025 End: March 05, 2025 Saad Pierce MD Attending Provider Active Star t: March 05, 2025 End: March 05, 2025 Team Status: Active Member Role Status Adilia Pierce MD Primary Care Provider Active Start: December 04, 2024 Tara Nicholson CMA Attending Provider Active Start: December 04, 2024 Team Status: Inactive Member Role Status Adilia Pierce MD Primary Care Provide r, Attending Provider Active Start: September 29, 2024 End: September 29, 2024 Team Status: Inactive Member Role Status Adilia Pierce MD Primary Care Provider Active Start: October 07, 2024 End: October 07, 2024 Esau Busch MD Attending Provider Active S tart: October 07, 2024 End: October 07, 2024 Team Status: Active Member Role Status Adilia Pierce MD Primary Care Provide r, Attending Provider Active Start: October 07, 2024 Team Status: Active Member Role Status Adilia Pierce MD Primary Care Provider Active Start: October 07, 2024 Esau Busch MD Attending Provider, Other Provider Active Start: October 07, 2024 Team Status: Inactive Member Role Status Dates Waqas Pierce MD Primary Care Provide r, Attending Provider Active Start: October 28, 2024 End: October 28, 2024 Team Status: Active Member Role Status Dates NON STAFF Primary Care Provider Active Start: October 29, 2024 Marcin Grace MD Attending Provider Active Start: October 29, 2024 Team Status: Inactive Member Role Status Dates Waqas Pierce MD Primary Care Provider Active Start: November 04, 2024 End: November 04, 2024 Esau Busch MD Attending Provider Active S tart: November 04, 2024 End: November 04, 2024 Team Status: Inactive Member Role Status Dates Waqas Pierce MD Primary Care Provider Active Start: November 11, 2024 End: November 11, 2024 Esau Busch MD Attending Provider Active S tart: November 11, 2024 End: November 11, 2024 Team Status: Active Member Role Status Dates Waqas Pierce MD Primary Care Provider Active Start: November 13, 2024 End: November 13, 2024 Esau Busch MD Attending Provider, Other Provider Active Start: November 13, 2024 End: November 13, 2024 Team Status: Inactive Member Role Status Dates Waqas Pierce MD Primary Care Provide r, Attending Provider Active Start: November 24, 2024 End: November 24, 2024 Team Status: Active Member Role Status Dates Waqas Pierce MD Primary Care Provider Active Start: December 01, 2024 Uday Wray DO Attending Provider Active Start : December 01, 2024 Team Status: Inactive Member Role Status Dates Waqas Pierce MD Primary Care Provider Active Start: December 02, 2024 End: December 02, 2024 Paulino Hughes MD Attending Provider Active Start : December 02, 2024 End: December 02, 2024 Team Status: Active Member Role Status [...] STAFF Primary Care Provider Active Start: October 06, 2024 Marcin Grace MD Attending Provider Active Start: October 06, 2024 Team Status: Active Member Role Status Dates Waqas Pierce MD Primary Care Provider Active Start: July 15, 2024 Suze Hurtado MD Attending Provider Active St art: July 15, 2024 Team Status: Active Member Role Status Dates NON STAFF Primary Care Provider Active Start: September 11, 2024 Marcin Grace MD Attending Provider Active Start: September 11, 2024 Team Status: Inactive Member Role [...] End: December 26, 2023 Carrie Bhakta APRN [employer] TRUCK OPERATOR-C Attending Provider Act pradeep Start: December [...] Role Status Dates Grecia Pham [facility] Attending Provider Active Start: October [...] Role Status Dates Grecia Pham [facility] Attending Provider Active Start: September [...] Provide r, Attending Provider Active Start: November 03, 2024 Team Status: Active Member Role Status Dates Waqas Pierce MD Primary Care Provide r, Attending Provider Active Start: November 10, 2024 Team Status: Active Member Role Status Dates Waqas Pierce MD Primary Care Provide r, Attending Provider Active Start: November 13, 2024 Team Status: Inactive Member Role Status Dates Waqas Pierce MD Primary Care Provider Active Start: November 13, 2024 End: November 13, 2024 Esau Busch MD Attending Provider Active S tart: November 13, 2024 End: November 13, 2024 Manager Leadership Development Relationship Specialty Start Date End Date Waqas Pierce MD [address] [place] [address] PCP - General Family Medicine 06/13/23 Deja Burnett DO [id number] [place] [address] Referring Physician Neurology 10/24/24 Manager Leadership Development Relationship Specialty Start Date End Date Waqas Pierce MD [address] [place] [address] PCP - General Family Medicine 06/13/23 Deja Burnett DO [address] [place] [address] Referring Physician Neurology 10/24/24 Manager Leadership Development Relationship Specialty Start Date End Date Waqas Pierce MD [address] [place] [address] PCP - General Family Medicine 06/13/23 Deja Burnett DO [address] [place] [address] Referring Physician Neurology 10/24/24 Team Status: Inactive Member Role Status Dates Waqas Pierce MD Primary Care Provider Active Start: March 11, 2025 End: March 11, 2025 Mer Kirkland APRN Attending Provider Active Start: March 11, 2025 End: March 11, 2025 Manager Leadership Development Relationship Specialty Start Date End Date Waqas Pierce MD PCP - General Family Medicine 06/13/23 Jermain BurnettDO anoop [address] [place] [address] Referring Physician Neurology 10/24/24 Manager Leadership Development Relationship Specialty Start Date End Date Waqas Pierce MD [address] [place] [id number] PCP - General Family Medicine 03/17/25 Team Status: Inactive Member Role Status Dates Waqas Pierce MD Primary Care Provider Active Start: February 09, 2025 End: February 09, 2025 Waqas Pierce MD Attending Provider Active St art: February 09, 2025 End: February 09, 2025 Team Status: Inactive Member Role Status Dates Waqas Pierce MD Primary Care Provider Active Start: June 19, 2025 End: June 19, 2025 Paulino Hughes MD Attending Provider Active Start : June 19, 2025 End: June 19, 2025 Goals (unrecognized section and content) Goals may be documented in a n alternate section Ordered Prescriptions (unrec ognized section and content) Prescription Sig Dispense Quantity Refills Last Filled Start Date End Date oxyCODONE-acetamin ophen (PERCOCET) 5-325 MG per tabletIndications: Paraesophageal hernia Take 1 tablet by mouth every 6 hours as needed for Pain for up to 7 days. Max Daily Amount: 4 tablets 25 tablet 03/29/2025 Scheduled Active and Recently Administ ered Medications (unrecognized section and content) Medication Order 03/27/2025 03/28/2025 03/29/2025 atorvastatin (LIPITOR) tablet 20 mg 20 mg, Oral, NIGHTLY, First dose on Mandy 03/26/25 at 2100, Until Discontinued 1935 (Not Given - Provider: Ajith Rubio RN - Reason: Pt NPO) 2022 (Given - Provider: Ajith Rubio RN) 2100 (Due) enoxaparin Sodium (LOVENOX) injection 30 mg 30 mg, SubCUTAneous, 2 times daily, First dose on Sun03/24/25 at 2100, Until Discontinued, Indication of Use: Prophylaxis-DVT/PE, Administer by deep subCUTAneous injection with pt lying down. Alternate injection sites on abdominal wall. Do not rub site after injection. Check with provider prior to any invasive procedure., Post-op 0840 (Given - Provider: Norma Nino RN)2026 (Given - Provider: Ajith Rubio RN) 0925 (Given - Provider: Katiuska Mota RN)2022 (Given - Provider: Ajith Rubio RN) 09 (Given - Provider: Katiuska Mota RN)2099 (Due) famotidine (PEPCID) 20 MG/2ML 20 mg in sodium chloride (PF) 0.9 % 10 mL injection(Linked Group 1) 20 mg, IntraVENous, 2 TIMES DAILY, First dose on Sun03/24/25 at 2100, Until Discontinued, Administer if oral route cannot be used, Post-op 0840 (Given - Provider: Norma Nino RN)2025 (Given - Provider: Ajith Rubio RN) 0925 (Given - Provider: Katiuska Mota RN)2022 (See Alternative - Provider: Ajith Rubio RN) 0935 (See Alternative - Provider: Katiuska Mota RN)2099 (Due) famotidine (PEPCID) tablet 20 mg(Linked Group 1) 20 mg, Oral, 2 TIMES DAILY, First dose on Sun03/24/25 at 2100, Until Discontinued, Post-op 0840 (See Alternative - Provider: Norma Nino RN)2025 (See Alternative - Provider: Ajith Rubio RN) 0925 (See Alternative - Provider: Katiuska Mota RN)2022 (Given - Provider: Ajith Rubio RN) 0935 (Given - Provider: Katiuska Mota RN)2099 (Due) insulin lispro (HUMALOG,ADMELOG) injection vial 0-16 Units 0-16 Units, SubCUTAneous, 4 TIMES DAILY BEFORE MEALS & NIGHTLY, First dose (after last modification) on Sun03/28/25 at 1615, Until Discontinued, High Dose Corrective Algorithm Glucose: Dose: 70-179 No Insulin 180-249 4 Units 250-299 8 Units 300-349 12 Units Over 349 16 Units and notify physician Administer as soon as possible within 60 minutes of last blood glucose check 1640 (Not Given - Provider: Katiuska Mota RN - Reason: Order parameters not met)2026 (Not Given - Provider: Ajith Rubio RN - Reason: Order parameters not met) 0831 (Not Given - Provider: Katiuska Mota RN - Reason: Order parameters not met)1100 (Due)1700 (Due)2100 (Due) levothyroxine (SYNTHROID) tablet 75 mcg 75 mcg, Oral, DAILY BEFORE BREAKFAST, First dose on Sun03/27/25 at 0700, Until Discontinued, Tube feeding (TF) interaction, obtain physician order to manage, recommend holding TF for 30 minutes before and after dose. 0559 (Not Given - Provider: Araceli Irizarry RN - Reason: Pt NPO) 0517 (Not Given - Provider: Ajith Rubio RN - Reason: Pt NPO) 0607 (Given - Provider: Ajith Rubio RN) metoprolol succinate (TOPROL XL) extended release tablet 50 mg 50 mg, Oral, DAILY, First dose on Sun03/25/25 at 0900, Until Discontinued, Do not crush or chew. 0828 (Not Given - Provider: Norma Nino RN - Reason: Pt NPO) 0900 (Not Given - Provider: Katiuska Mota RN - Reason: Other - Comment: NPO) 0935 (Given - Provider: Katiuska Mota RN) sodium chloride flush 0.9 % injection 5-40 mL 5-40 mL, IntraVENous, EVERY 12 HOURS SCHEDULED (2 times per day), First dose on Sun03/24/25 at 2100, Until Discontinued, For Line Patency: Peripheral IV = 5 mL; Midline or Central Line = 10 mL/lumen. If following IV push medication, administer flush at same rate as the IV push. Flush volume is determined by type of infusion therapy being given. For non-viscous solutions use: Peripheral IV = 5 mL Midline or Central Line = 10 mL/lumen For viscous solutions (i.e. blood components, parenteral nutrition, contrast media, or after obtaining blood sample) use: Peripheral IV = 10 mL Midline or Central Line = 20 mL/lumen, PACU only 0752 (Not Given - Provider: Norma Nino RN - Reason: IV Fluid Infusing)2026 (Given - Provider: Ajith Rubio RN) 926 (Given - Provider: Katiuska Mota RN)2022 (Given - Provider: Ajith Rubio RN) 0940 (Not Given - Provider: Katiuska Mota RN - Reason: Loss of IV access)2100 (Due) sodium chloride flush 0.9 % injection 5-40 mL 5-40 mL, IntraVENous, EVERY 12 HOURS SCHEDULED (2 times per day), First dose on Sun03/24/25 at 2100, Until Discontinued, For Line Patency: Peripheral IV = 5 mL; Midline or Central Line = 10 mL/lumen. If following IV push medication, administer flush at same rate as the IV push. Flush volume is determined by type of infusion therapy being given. For non-viscous solutions use: Peripheral IV = 5 mL Midline or Central Line = 10 mL/lumen For viscous solutions (i.e. blood components, parenteral nutrition, contrast media, or after obtaining blood sample) use: Peripheral IV = 10 mL Midline or Central Line = 20 mL/lumen, Post-op 0752 (Not Given - Provider: Norma Nino RN - Reason: IV Fluid Infusing)2026 (Given - Provider: Ajith Rubio RN) 09 (Given - Provider: Katiuska Mota RN)2022 (Given - Provider: Ajith Rubio RN) 0940 (Not Given - Provider: Katiuska Mota RN - Reason: Loss of IV access)2100 (Due) trospium (SANCTURA) tablet 20 mg 20 mg, Oral, 2 TIMES DAILY BEFORE MEALS, First dose on Sun03/26/25 at 1600, Until Discontinued, Substituted for mirabegron (MYRBETRIQ). 0559 (Not Given - Provider: Araceli Irizarry RN - Reason: Pt NPO)1418 (Not Given - Provider: Norma Nino RN - Reason: Pt NPO) 0517 (Not Given - Provider: Ajith Rubio RN - Reason: Pt NPO)1654 (Not Given - Provider: Katiuska Mota RN - Reason: Patient/family refused) 0606 (Not Given - Provider: Ajith Rubio RN - Reason: Patient/family refused)1600 (Due) Continuous Medication Order 03/27/2025 03/28/2025 03/29/2025 dextrose 5 % in lactated ringers infusion (CANCELED) IntraVENous, at 50 mL/hr, CONTINUOUS, Starting on Mandy 03/26/25 at 1830 0427 (New Bag - Provider: Araceli Irizarry RN)0428 (Rate/Dose Verify - Provider: Araceli Irizarry RN)0645 (Rate/Dose Verify - Provider: Araceli Irizarry RN)1038 (Paused - Provider: Ajith Rubio RN)1038 (Paused - Provider: Ajith Rubio RN)1111 (Restarted - Provider: Ajith Rubio RN)1439 (Rate/Dose Verify - Provider: Ajith Rubio RN)1452 (New Bag - Provider: Norma Nino RN)1453 (Rate/Dose Verify - Provider: Ajith Rubio RN)2007 (Paused - Provider: Ajith Rubio RN)2018 (Restarted - Provider: Ajith Rubio RN)2222 (Paused - Provider: Ajith Rubio RN)2234 (Restarted - Provider: Ajith Rubio RN)2318 (Rate/Dose Verify - Provider: Ajith Rubio RN) 0118 (Paused - Provider: Ajith Rubio RN)0118 (Paused - Provider: Ajith Rubio RN)0123 (New Bag - Provider: Ajith Rubio RN)0124 (Paused - Provider: Ajith Rubio RN)0124 (Restarted - Provider: Ajith Rubio RN)0549 (Rate/Dose Verify - Provider: Ajith Rubio RN)0615 (Rate/Dose Verify - Provider: Ajith Rubio RN)1014 (Rate/Dose Change - Provider: Katiuska Mota RN)1022 (Rate/Dose Verify - Provider: Katiuska Mota RN - Comment: [Action automatically changed])1259 (Rate/Dose Change - Provider: Katiuska Mota RN)1300 (Rate/Dose Change - Provider: Katiuska Mota RN)1330 (Rate/Dose Change - Provider: Katiuska Mota RN)1334 (Rate/Dose Change - Provider: Katiuska Mota RN)1335 (New Bag - Provider: Katiuska Mota RN)1336 (Rate/Dose Verify - Provider: Katiuska Mota RN)1544 (Rate/Dose Verify - Provider: Katiuska Mota RN)1909 (Rate/Dose Verify - Provider: Katiuska Mota RN) 0626 (Rate/Dose Verify - Provider: Ajith Rubio RN)0759 (Stopped - Provider: Katiuska Mota RN) HYDROmorphone (DILAUDID) 1 mg/mL ASSOCIATE ARTISTIC DIRECTOR (CANCELED) Patient Bolus (ASSOCIATE ARTISTIC DIRECTOR Dose): 0.2 mg, Patient Bolus Lockout Interval: 10 Minutes, Continuous Dose: 0 mg/hr, One Hour Dose Limit: 1 mg, Loading Dose: 0 mg, IntraVENous, CONTINUOUS, Starting on Sun03/24/25 at 1615 0909 (New Bag - Provider: Norma Nino RN) 2328 (Restarted - Provider: Ajith Rubio RN) 0759 (Stopped - Provider: Katiuska Mota RN - Comment: [Order ends at this time. Document the following action when infusion is complete: Stopped]) PRN Medication Order 03/27/2025 03/28/2025 03/29/2025 0.9 % sodium chloride infusion IntraVENous, at 100 mL/hr, PRN, If patient receiving piggyback infusions without ordered maintenance IV fluids or with frequent/long duration piggyback infusions, Starting on Sun03/24/25 at 1605, Administer at the same rate as the piggyback being infused., PACU only 0.9 % sodium chloride infusion IntraVENous, at 5-250 mL/hr, PRN, if patient receiving piggyback infusions and maintenance fluids are not ordered, Starting on Sun03/24/25 at 1605, For piggyback infusion, administer at same rate as piggyback for a total of 25 mL. Enter 25 mL into dose field and piggyback rate into rate field of order. If piggyback is infusing at a rate less than 100 mL/hr, enter 25 mL into dose field and 100 mL/hr into rate field of order., Post-op acetaminophen (TYLENOL) suppository 650 mg 650 mg, Rectal, EVERY 4 HOURS PRN, Starting on Sun03/24/25 at 1605, Until Discontinued, Other, Pain (1-10), Give in addition to any other pain medication ordered at same time for any pain indication., Post-op benzocaine (HURRICAINE) 20 % oral spray Mouth/Throat, 3 TIMES DAILY PRN, Pain, Starting on Sun03/27/25 at 1507, Firmly insert provided extension tube into spray can valve. Hold extension tube 1-2 inches from affected area and spray for second (press and immediately release actuator). dextrose 10 % infusion IntraVENous, at 100 mL/hr, CONTINUOUS PRN, if blood glucose remains LESS THAN 70 mg/dL after 2 dextrose 10% intravenous boluses or administration of glucagon, Starting on Sun03/25/25 at 0920, If blood glucose fails to stabilize after 2 dextrose 10% intravenous boluses or glucagon administration, start dextrose 10% infusion at 100 mL/hour and repeat blood glucose at 30 and 60 minutes. If blood glucose is GREATER THAN 70 mg/dL after 60 minutes, discontinue dextrose 10% infusion. dextrose bolus 10% 125 mL(Linked Group 2) 125 mL, IntraVENous, at 937.5 mL/hr, Administer over 8 Minutes, PRN, Other, Blood glucose 40 - 69 mg/dL and patient NOT ALERT or NPO, Starting on Sun03/25/25 at 0920, Repeat blood glucose in 15 minutes. If blood glucose remains LESS THAN 70 mg/dL, repeat treatment and recheck blood glucose in 15 minutes x 2. If using glycemic management system, dose as instructed per system. If blood glucose remains LESS THAN 70 mg/dL after 2 intravenous boluses start dextrose 10% at 100 mL/hour and notify provider. dextrose bolus 10% 250 mL(Linked Group 2) 250 mL, IntraVENous, at 937.5 mL/hr, Administer over 16 Minutes, PRN, Other, Blood glucose LESS THAN 40 mg/dL and patient NOT ALERT or NPO, Starting on Sun03/25/25 at 0920, Repeat blood glucose in 15 minutes. If blood glucose remains LESS THAN 70 mg/dL, repeat treatment and recheck blood glucose in 15 minutes x 2. If using glycemic management system, dose as instructed per system. If blood glucose remains LESS THAN 70 mg/dL after 2 intravenous boluses start dextrose 10% at 100 mL/hour and notify provider. diphenhydrAMINE (BENADRYL) injection 12.5 mg 12.5 mg, IntraVENous, ONCE PRN, 1 dose, Starting on Sun03/24/25 at 1605, Until Discontinued, Itching, PACU only fentaNYL (SUBLIMAZE) injection 50 mcg 50 mcg, IntraVENous, EVERY 10 MIN PRN, 4 doses, Starting on Sun03/24/25 at 1605, Until Discontinued, Pain Moderate (4-6), allowed for higher pain score per patient request, Phase I - Initial therapy for moderate pain., PACU only glucagon injection 1 mg 1 mg, SubCUTAneous, PRN, Starting on Sun03/25/25 at 0920, Until Discontinued, Low blood sugar, Blood glucose LESS THAN 70 mg/dL and patient NOT ALERT or NPO and does not have IV access., After administration, attempt intravenous access and start dextrose 10% at 100 mL/hr. Repeat blood glucose in 15 minutes x 2 and notify provider. Reconstitute powder for injection by adding 1 mL of tank bottom assembler-supplied sterile diluent or sterile water for injection to a vial containing 1 mg of the drug, to provide solutions containing 1 mg/mL. Shake vial gently to dissolve. glucose chewable tablet 16 g 16 g (4 tablet), Oral, PRN, Starting on Sun03/25/25 at 0920, Until Discontinued, Low blood sugar, If blood glucose is LESS THAN 70 mg/dL and patient is alert and tolerating oral. Give 4 tablets (16g) Repeat blood glucose in 15 minutes. If blood glucose is LESS THAN 70 mg/dL, repeat treatment and recheck blood glucose in 15 minutes x 2. If blood glucose remains LESS THAN 70 mg/dL, notify provider. haloperidol lactate (HALDOL) injection 2 mg 2 mg, IntraMUSCular, EVERY 6 HOURS PRN, Starting on Sun03/24/25 at 1621, Until Discontinued, Agitation, IM route of administration preferred. Because of the risk of TdP and QT prolongation, ECG monitoring is recommended if haloperidol is given IV. hydrALAZINE (APRESOLINE) injection 10 mg 10 mg, IntraVENous, EVERY 6 HOURS PRN, Starting on Mandy 03/26/25 at 1023, Until Discontinued, SBP > 160 HYDROmorphone (DILAUDID) injection 0.5 mg 0.5 mg, IntraVENous, EVERY 10 MIN PRN, 4 doses, Starting on Sun03/24/25 at 1605, Until Discontinued, Pain Severe (7-10), Phase I - Initial therapy for severe pain., PACU only ketorolac (TORADOL) injection 30 mg 30 mg, IntraVENous, EVERY 6 HOURS PRN, Starting on Sun03/24/25 at 1550, Until 03/29/25 at 1549, Pain Moderate (4-6), allowed for higher pain score per patient request, Do not administer for more than 5 days. 0840 (Given - Provider: Norma Nino RN)2028 (Given - Provider: Ajith Rubio RN) 2335 (Given - Provider: Ajith Rubio RN) magnesium sulfate 2000 mg in 50 mL IVPB premix 2,000 mg, IntraVENous, at 25 mL/hr, Administer over 2 Hours, PRN, Other, Magnesium Replacement, Starting on Sun03/24/25 at 1605, Mag Lab Replacement Action 1.4-1.6 mg/dL 2,000 mg Total Dose Given as 1,000 mg IVPB x 2 doses or 2,000 mg IVPB x 1 dose 1.0-1.3 mg/dL 4,000 mg Total Dose Given as 1,000 mg IVPB x 4 doses or 2,000 mg IVPB x 2 doses Less than 1.0 mg/dL CALL PHYSICIAN and give 4,000 mg Total Dose Given as 1,000 mg IVPB x 4 doses or 2,000 mg IVPB x 2 doses Infuse at 1,000 mg/hr Repeat Mag level 1 hour after final administration Protocol not for use in Patients with CrCl less than 30ml/min, Post-op meperidine (DEMEROL) injection 12.5 mg 12.5 mg, IntraVENous, ONCE PRN, 1 dose, Starting on Sun03/24/25 at 1605, Until Discontinued, Shivering, Shivering,, PACU only metoclopramide (REGLAN) injection 10 mg 10 mg, IntraVENous, ONCE PRN, 1 dose, Starting on Sun03/24/25 at 1605, Until Discontinued, Nausea, Secondary antiemetic therapy if not given intraoperatively., PACU only naloxone 0.4 mg in 10 mL sodium chloride syringe IntraVENous, PRN, Opioid Reversal, Starting on Sun03/24/25 at 1605, PRN if respiratory rate is less than 6/min and patient is difficult to arouse then notify physician STAT. Mix 9 mL of sodium chloride 0.9% with 0.4 mg (1 mL) of naloxone (NARCAN) in 10 mL syringe. (Note: dilution is 0.04 mg/mL) Give 0.08 mg (2 mL of special dilution), slow IV push, repeat up to 0.4 mg (10 mL) or until patient is responsive to physical stimulation and respiratory rate is equal to or greater than 6 breaths/min. Continue to observe, if no response within 3 minutes of administration of 0.4 mg (10 mL) total, repeat dose (0.4 mg as administered previously). Concentration 0.04 mg/mL, PACU only ondansetron (ZOFRAN) injection 4 mg 4 mg, IntraVENous, ONCE PRN, 1 dose, Starting on Sun03/24/25 at 1605, Until Discontinued, Nausea, Initial antiemetic therapy., PACU only ondansetron (ZOFRAN) injection 4 mg(Linked Group 3) 4 mg, IntraVENous, EVERY 6 HOURS PRN, Starting on Sun03/24/25 at 1605, Until Discontinued, Nausea, Vomiting, Administer if oral route cannot be used., Post-op ondansetron (ZOFRAN-ODT) disintegrating tablet 4 mg(Linked Group 3) 4 mg, Oral, EVERY 8 HOURS PRN, Starting on Sun03/24/25 at 1605, Until Discontinued, Nausea, Vomiting, Post-op oxyCODONE-acetaminophen (PERCOCET) 5-325 MG per tablet 1 tablet 1 tablet, Oral, EVERY 4 HOURS PRN, Starting on Sun03/29/25 at 0945, Until Discontinued, Pain Severe (7-10), Maximum dose of acetaminophen is 4000 mg from all sources in 24 hours. 1010 (Given - Provider: Katiuska Mota RN) potassium chloride 10 mEq/100 mL IVPB (Peripheral Line) 10 mEq, IntraVENous, PRN, Starting on Sun03/24/25 at 1605, Until Discontinued, at 100 mL/hr, Potassium Replacement, K Lab Replacement Action 3.1-3.5 10 mEq IVPB x 4 doses (40 mEq Total) 2.7-3.0 10 mEq IVPB x 6 doses (60 mEq Total) < 2.7 CALL PHYSICIAN and 10 mEq IVPB x 6 doses (60 mEq Total) Infuse at 10 mEq/hr. Repeat Potassium lab 1 hour after final administration. Not for use in patients with CrCl less than 30 mL/min., Post-op sodium chloride flush 0.9 % injection 5-40 mL 5-40 mL, IntraVENous, PRN, Starting on Sun03/24/25 at 1605, Until Discontinued, Line Care, After every IV line use, For Line Patency: Peripheral IV = 5 mL; Midline or Central Line = 10 mL/lumen. If following IV push medication, administer flush at same rate as the IV push. Flush volume is determined by type of infusion therapy being given. For non-viscous solutions use: Peripheral IV = 5 mL Midline or Central Line = 10 mL/lumen For viscous solutions (i.e. blood components, parenteral nutrition, contrast media, or after obtaining blood sample) use: Peripheral IV = 10 mL Midline or Central Line = 20 mL/lumen, PACU only sodium chloride flush 0.9 % injection 5-40 mL 5-40 mL, IntraVENous, PRN, Starting on Sun03/24/25 at 1605, Until Discontinued, Line Care, After every IV line use, For Line Patency: Peripheral IV = 5 mL; Midline or Central Line = 10 mL/lumen. If following IV push medication, administer flush at same rate as the IV push. Flush volume is determined by type of infusion therapy being given. For non-viscous solutions use: Peripheral IV = 5 mL Midline or Central Line = 10 mL/lumen For viscous solutions (i.e. blood components, parenteral nutrition, contrast media, or after obtaining blood sample) use: Peripheral IV = 10 mL Midline or Central Line = 20 mL/lumen, Post-op Linked Groups Order Group 1: famotidine (PEPCID) tablet 20 mgJump to med 20 mg, Oral, 2 TIMES DAILY, First dose on Sun03/24/25 at 2100, Until Discontinued, Post-op Or famotidine (PEPCID) 20 MG/2ML 20 mg in sodium chloride (PF) 0.9 % 10 mL injectionJump to med 20 mg, IntraVENous, 2 TIMES DAILY, First dose on Sun03/24/25 at 2100, Until Discontinued, Administer if oral route cannot be used, Post-op Group 2: dextrose bolus 10% 125 mLJump to med 125 mL, IntraVENous, at 937.5 mL/hr, Administer over 8 Minutes, PRN, Other, Blood glucose 40 - 69 mg/dL and patient NOT ALERT or NPO, Starting on Sun03/25/25 at 0920, Repeat blood glucose in 15 minutes. If blood glucose remains LESS THAN 70 mg/dL, repeat treatment and recheck blood glucose in 15 minutes x 2. If using glycemic management system, dose as instructed per system. If blood glucose remains LESS THAN 70 mg/dL after 2 intravenous boluses start dextrose 10% at 100 mL/hour and notify provider. Or dextrose bolus 10% 250 mLJump to med 250 mL, IntraVENous, at 937.5 mL/hr, Administer over 16 Minutes, PRN, Other, Blood glucose LESS THAN 40 mg/dL and patient NOT ALERT or NPO, Starting on Sun03/25/25 at 0920, Repeat blood glucose in 15 minutes. If blood glucose remains LESS THAN 70 mg/dL, repeat treatment and recheck blood glucose in 15 minutes x 2. If using glycemic management system, dose as instructed per system. If blood glucose remains LESS THAN 70 mg/dL after 2 intravenous boluses start dextrose 10% at 100 mL/hour and notify provider. Group 3: ondansetron (ZOFRAN-ODT) disintegrating tablet 4 mgJump to med 4 mg, Oral, EVERY 8 HOURS PRN, Starting on Sun03/24/25 at 1605, Until Discontinued, Nausea, Vomiting, Post-op Or ondansetron (ZOFRAN) injection 4 mgJump to med 4 mg, IntraVENous, EVERY 6 HOURS PRN, Starting on Sun03/24/25 at 1605, Until Discontinued, Nausea, Vomiting, Administer if oral route cannot be used., Post- op FOR RECORDS PERTAINING TO PATIENTS WHO ARE [...] BE BASED ON THE PRIMARY CLINICAL RECORDS. [employer] provides no warranty or guarantee of the accuracy or completeness of information in this document.
[2025-06-22 10:36] LABS: Anion Gap 14.7; Blood Urea Nitrogen 16.0 mg/dL (7.0-18.0); Calcium 9.4 mg/dL (8.5-10.1); Carbon Dioxide 26.5 mmol/L (21.0-32.0); Chloride 103 mmol/L (98-107); Estimated GFR (African America >60 (>=60 mL/min/1.73m^2); Estimated GFR (Non-African Ame >60 (>=60 mL/min/1.73m^2); Glucose 106 mg/dL (74-106); Potassium 4.2 mmol/L (3.5-5.1); Sodium 140 mmol/L (136-145)
[2025-06-22 10:44] LABS: Hematocrit 46.1 % (36.0-48.0); Hemoglobin 15.2 g/dL (12.0-16.0); Immature Granulocytes Abs Auto 0.03 10^3/uL (0.00-0.03); Immature Granulocytes Pct Auto 0.4 % (0.0-0.5); Lymphocytes Absolute Auto 1.4 10^3/uL (1.2-3.8); Mean Corpuscular HGB Conc 33.0 g/dL (29.9-35.2); Mean Corpuscular Hemoglobin 30.8 pg (26.7-34.0); Mean Corpuscular Volume 93.3 fL (81.0-99.0); Platelet Count 328 10^3/uL (150-450); Red Blood Count 4.94 10^6/uL (4.20-5.40); White Blood Count 6.8 10^3/uL (4.0-11.0)
[2025-06-22 11:06] LABS: Iron 62.0 ug/dL (50.0-170.0); Percent Iron Saturation 18.7 %; Total Iron Binding Capacity 331.0 ug/dL (250.0-450.0)
[2025-06-22 11:15] LABS: Ferritin 202.0 ng/mL (8.0-252.0)
[2025-06-23 04:12] LABS: Vitamin B12 603 pg/mL (232-1245)
== END 2025-06-22 09:36 | disposition home or self-care (01) ==
LOC: LAB 09:38
PROVIDERS: PCP Family Medicine; Visit Provider Internal Medicine Hematology & Oncology
DX: D64.9 Anemia, unspecified (principal); D50.9 Iron deficiency anemia, unspecified; K90.9 Intestinal malabsorption, unspecified
CPT/HCPCS: 36415; 80048; 82306; 82607; 82728; 83540; 83550; 85025

== ENCOUNTER 2025-06-23 09:46 | Outpatient (RCR) | payer MEDICARE, SELFPAY | END 2025-06-30 23:59 | disposition home or self-care (01) | LOC: HEMC 09:46 | PROVIDERS: PCP Family Medicine; Visit Provider Internal Medicine Hematology & Oncology | DX: D64.9 Anemia, unspecified (principal); D50.9 Iron deficiency anemia, unspecified; K90.9 Intestinal malabsorption, unspecified; Z96.649 Presence of unspecified artificial hip joint; K44.9 Diaphragmatic hernia without obstruction or gangrene | CPT/HCPCS: G0463 ==